=== PATIENT | female | born 1990 | race Caucasian/White ===

== ENCOUNTER → 2023-12-09 | Outpatient (CLI) | payer OTHER, SELFPAY ==
--- NOTE | 2023-12-09 12:00 | RAD_ITS ---
INDICATION: infertility EXAMINATION/TECHNIQUE: Routine hysterosalpingography was performed. Total Fluoroscopic Time: 18 seconds AND number of Fluoroscopic Images: 2 OR Radiation dosage index: 14.7 mGy COMPARISON: FINDINGS: The uterine cavity contour is unremarkable. There are no filling defects or abnormalities. Both fallopian tubes are patent with free peritoneal spillage bilaterally. RAD/Salpingogram IMPRESSION: Negative hysterosalpingogram. Electronically Signed: Francisco Javier Padron MD at 12:40 EDT ,
--- NOTE | 2023-12-09 12:50 | PCM.OPRPT ---
Problems Associated Problem List Diagnoses (1) PCOS (polycystic ovarian syndrome): Report of Operation Date of Procedure: 12/09/23 Pre-Operative Diagnosis: PCOS, abnormal bleeding, infertility Post-Operative Diagnosis: PCOS, abnormal bleeding, infertility Surgery/Procedure Performed:: hysterosalpingogram. Surgeon: Edel Bullock statistical methods teacher: None Type of Anesthesia: None Special Medications: none Specimen's removed: none Drains: none Estimated Blood Loss (mL): none Fluids Replaced: none Description of Procedure: Findings: Bilateral tubal patency and normal uterine cavity Operative details: Patient was taken to the x-ray room and was placed on the x-ray table and was in the dorsal lithotomy position. Speculum was placed in the vagina and the cervix prepped with Betadine and the HSG catheter was easily introduced into the uterus and speculum removed. Radiologist was brought in and while pushing radiopaque dye into the uterus via the HSG catheter the radiologist took multiple images and views and confirmed bilateral tubal patency seen. No gross uterine filling defects or abnormalities were seen. All instruments removed from the vagina and the uterus without complication. Patient tolerated the procedure well. Multi Select Codes Urinary/Genital Urinary/Genital CPT Codes: 75349 HSG/SIS
== END | disposition home or self-care (01) ==
LOC: RAD 11:52
PROVIDERS: Referring Provider Obstetrics & Gynecology; Visit Provider Obstetrics & Gynecology
DX: N97.0 Female infertility associated with anovulation (principal); E28.2 Polycystic ovarian syndrome
CPT/HCPCS: 58340; 74740; Q9967

== ENCOUNTER → 2024-05-27 | Outpatient (CLI) | payer OTHER, SELFPAY ==
[2024-05-27 10:34] LABS: Absolute Lymphocyte Count 2.52 X10^3/uL (0.83-4.51); Basophil# 0.07 X10^3/uL; Basophil% 0.7 % (0-1); Eosinophil# 0.21 X10^3/uL; Eosinophils% 2.2 % (0-5); Hematocrit 45.4 % (37-47); Hemoglobin 14.7 g/dL (12.0-15.0); Lymphocyte # 2.52 X10^3/ul (0.83-4.51); Lymphocyte % 26.9 % (19-41); Mean Corp Hgb Conc 32.4 g/dL (32-36); Mean Corpuscular Hgb 27.8 pg (27.0-32.0); Mean Corpuscular Volume 85.8 fL (81-99); Mean Platelet Vol. 8.7 fl (6.2-12.0); Monocyte# 0.51 X10^3/uL; Monocyte% 5.4 % (0-10); NRBC Flagged by Analyzer 0 % (0-5); Neutrophil # 5.98 X10^3/uL (2.7-7.7); Neutrophil % 63.9 % (47-70); Platelet Count 348 K/mm3 (150-450); RBC Distribution Width CV 12.6 % (11.6-14.6); RBC Distribution Width SD 39.6 fl (35.1-43.9); Red Blood Count 5.29 M/mm3 (4.2-5.4); White Blood Count 9.4 K/mm3 (4.4-11.0)
[2024-05-27 11:39] LABS: AST(SGOT) 40 U/L (15-37); Alanine Aminotransfer ALT/SGPT 59 U/L (13-56); Albumin, Serum 3.8 g/dL (3.2-5.0); Alkaline Phosphatase 86 U/L (45-117); Anion Gap 7 (5-15); BUN 8 mg/dL (7-18); BUN/Creat Ratio 11.7 RATIO (10-20); Calcium,Total 9.1 mg/dL (8.5-10.1); Chloride 107 mmol/L (98-107); Creatinine, Serum 0.68 mg/dL (0.55-1.02); EST Glomerular Filtration Rate 104 mL/min (>60); Est Glom Filt Rate - Afr Amer 126 mL/min (>60); Estradiol 133.9 pg/mL; Follicle Stimulating Hormone 5.8 mIU/mL; Glucose 98 mg/dL (74-106); Potassium 3.9 mmol/L (3.5-5.1); Protein, Total 7.8 g/dL (6.4-8.2); Sodium Level 138 mmol/L (136-145)
[2024-05-27 11:50] LABS: HIV - WCH Non-Reactive (Nonreactive); Hepatitis B Surface Antigen Non-Reactive (Nonreactive); Hepatitis C Antibody Non-Reactive (Nonreactive); Rubella IgG Reactive (Nonreactive); Syphilis Antibodies Non-reactive; Vitamin D,25 Hydroxy 29.8 ng/mL
[2024-05-27 14:23] LABS: Hemoglobin A1c 5.4 % (3.8-5.6)
[2024-05-28 10:08] LABS: HCG BETA-SUBUNIT QUANT. < 1 mIU/mL (.); PROGESTERONE 0.2 ng/mL (.)
[2024-06-02 12:07] LABS: Anti-Mullerian Hormone,Serum 3.66 ng/mL (.); PROLACTIN 7.8 ng/mL (4.8-33.4); V-Zoster IgG (Immunity) 1347 index (Immune >165)
== END | disposition home or self-care (01) ==
LOC: LAB 09:27
PROVIDERS: Referring Provider Obstetrics & Gynecology Reproductive Endocrinology; Visit Provider Obstetrics & Gynecology Reproductive Endocrinology
DX: Z31.41 Encounter for fertility testing (principal)
CPT/HCPCS: 36415; 80053; 82306; 82670; 83001; 83002; 83036; 83516; 84144; 84146; 84403; 84443; 84702; 85025; 86703; 86762; 86780; 86787; 86803; 86900; 86901; 87340

== ENCOUNTER → 2024-08-04 | Outpatient (CLI) | payer OTHER, SELFPAY | END | disposition home or self-care (01) | LOC: SL 10:19 | PROVIDERS: Referring Provider Internal Medicine; Visit Provider Internal Medicine | DX: R29.818 Other symptoms and signs involving the nervous system (principal); G47.33 Obstructive sleep apnea (adult) (pediatric) | CPT/HCPCS: 95806 ==

== ENCOUNTER → 2024-10-09 | Outpatient (CLI) | payer BC, SELFPAY ==
[2024-10-09 17:17] LABS: Absolute Lymphocyte Count 2.85 X10^3/uL (0.83-4.51); Absolute Neutrophil Count 10.8 X10^3/uL (2.0-7.7); Basophil# 0.07 X10^3/uL; Basophil% 0.5 % (0-1); Eosinophil# 0.21 X10^3/uL; Eosinophils% 1.4 % (0-5); Hematocrit 41.2 % (37-47); Hemoglobin 14.1 g/dL (12.0-15.0); Lymphocyte # 2.85 X10^3/ul (0.83-4.51); Lymphocyte % 19.2 % (19-41); Mean Corp Hgb Conc 34.2 g/dL (32-36); Mean Corpuscular Hgb 28.8 pg (27.0-32.0); Mean Corpuscular Volume 84.1 fL (81-99); Mean Platelet Vol. 9.1 fl (6.2-12.0); Monocyte# 0.77 X10^3/uL; Monocyte% 5.2 % (0-10); NRBC Flagged by Analyzer 0 % (0-5); Neutrophil # 10.84 X10^3/uL (2.7-7.7); Neutrophil % 73.2 % (47-70); Platelet Count 417 K/mm3 (150-450); RBC Distribution Width CV 12.8 % (11.6-14.6); RBC Distribution Width SD 39.1 fl (35.1-43.9); White Blood Count 14.8 K/mm3 (4.4-11.0)
[2024-10-09 17:21] LABS: Amphetamine Urine VISTA NEGATIVE (<1000 ng/mL); Barbiturate Urine VISTA NEGATIVE (< 200 ng/mL); Benzodiazepine Urine VISTA NEGATIVE (< 200 ng/mL); Cocaine Urine VISTA NEGATIVE (< 300 ng/mL); Ecstacy Urine VISTA NEGATIVE (< 500 ng/mL); Methadone Urine VISTA NEGATIVE (< 300 ng/mL); PCP Urine VISTA NEGATIVE (< 25 ng/mL); THC Urine VISTA NEGATIVE (< 50 ng/mL); Vista UDS pH Range 6
[2024-10-09 17:31] LABS: T4 Free Direct 1.29 ng/dL (0.76-1.46)
[2024-10-09 19:44] LABS: Hemoglobin A1c 5.2 % (3.8-5.6)
[2024-10-12 15:34] LABS: Hepatitis B Surface Antigen Non-Reactive (Nonreactive); Hepatitis C Antibody Non-Reactive (Nonreactive); Rubella IgG Reactive (Nonreactive); Syphilis Antibodies Non-reactive
[2024-10-12 20:07] LABS: Chlamydia By Nucleic Acid AMP Negative (Negative); Gonococcus By Nucleic Acid AMP Negative (Negative)
[2024-10-13 22:09] LABS: HIV - WCH Non-Reactive (Nonreactive)
== END | disposition home or self-care (01) ==
PROVIDERS: PCP Internal Medicine; Referring Provider Advanced Practice Midwife; Visit Provider Advanced Practice Midwife
DX: O99.320 Drug use complicating pregnancy, unspecified trimester (principal); F12.99 Cannabis use, unspecified with unspecified cannabis-induced disorder; Z78.9 Other specified health status; O99.210 Obesity complicating pregnancy, unspecified trimester; Z3A.00 Weeks of gestation of pregnancy not specified
CPT/HCPCS: 36415; 80307; 83036; 84439; 84443; 85025; 86703; 86762; 86780; 86803; 86850; 86900; 86901; 87086; 87088; 87340; 87491; 87591

== ENCOUNTER → 2024-10-15 | Outpatient (CLI) | payer BC, SELFPAY | END | disposition home or self-care (01) | LOC: SL 10:27 | PROVIDERS: PCP Internal Medicine; Referring Provider Internal Medicine; Visit Provider Internal Medicine | DX: Z00.00 Encounter for general adult medical examination without abnormal findings (principal) ==

== ENCOUNTER → 2024-10-23 | Outpatient (CLI) | payer BC, SELFPAY | END | disposition home or self-care (01) | LOC: SL 10:32 | PROVIDERS: PCP Internal Medicine; Visit Provider Internal Medicine | DX: Z46.89 Encounter for fitting and adjustment of other specified devices (principal) ==

== ENCOUNTER 2024-11-10 18:30 | Emergency (ER) | payer BC, SELFPAY ==
[2024-11-10] VITALS (8 sets, daily range): BP systolic 96–142; BP diastolic 62–102; PULSE 83–138; RESP 18–20; TEMP 36.3–36.8; O2SAT 94–100; BMI 47.4
--- NOTE | 2024-11-10 19:33 | EKG12_ITS ---
Test Reason : DYSRHYTHMIA Blood Pressure : */* mmHG Vent. Rate : 109 BPM Atrial Rate : 109 BPM P-R Int : 118 ms QRS Dur : 72 ms QT Int : 324 ms P-R-T Axes : 47 14 -7 degrees QTcB Int : 436 ms Sinus tachycardia Otherwise normal ECG Confirmed by Douglas Fung ([id number]), medical transcription editor DAYNE HOGAN ([id number]) on 11/11/2024 11:26:16 AM Referred By: Confirmed By: Dogulas Fung
[2024-11-10] MEDS: 0.9% Normal Saline (1000mL) 1,000 ML 1000 ML IV (19:44)
[2024-11-10 19:54] LABS: Absolute Lymphocyte Count 3.59 X10^3/uL (0.83-4.51); Absolute Neutrophil Count 9.3 X10^3/uL (2.0-7.7); Basophil# 0.07 X10^3/uL; Basophil% 0.5 % (0-1); Eosinophil# 0.17 X10^3/uL; Eosinophils% 1.2 % (0-5); Hematocrit 43.6 % (37-47); Hemoglobin 14.8 g/dL (12.0-15.0); Lymphocyte # 3.59 X10^3/ul (0.83-4.51); Lymphocyte % 25.8 % (19-41); Mean Corp Hgb Conc 33.9 g/dL (32-36); Mean Corpuscular Hgb 28.8 pg (27.0-32.0); Mean Corpuscular Volume 84.8 fL (81-99); Mean Platelet Vol. 9.3 fl (6.2-12.0); Monocyte# 0.71 X10^3/uL; Monocyte% 5.1 % (0-10); NRBC Flagged by Analyzer 0 % (0-5); Neutrophil # 9.29 X10^3/uL (2.7-7.7); Neutrophil % 66.8 % (47-70); Platelet Count 373 K/mm3 (150-450); RBC Distribution Width CV 12.8 % (11.6-14.6); RBC Distribution Width SD 39.5 fl (35.1-43.9); Red Blood Count 5.14 M/mm3 (4.2-5.4); White Blood Count 13.9 K/mm3 (4.4-11.0)
[2024-11-10 20:05] LABS: Anion Gap 8 (5-15); BUN 5 mg/dL (7-18); BUN/Creat Ratio 8.8 RATIO (10-20); Calcium,Total 9.9 mg/dL (8.5-10.1); Chloride 108 mmol/L (98-107); Creatinine, Serum 0.57 mg/dL (0.55-1.02); EST Glomerular Filtration Rate 129 mL/min (>60); Est Glom Filt Rate - Afr Amer 157 mL/min (>60); Estimated Creatinine Clearance 167.72 ml/min; Glucose 86 mg/dL (74-106); Potassium 3.4 mmol/L (3.5-5.1); Sodium Level 140 mmol/L (136-145)
--- NOTE | 2024-11-10 20:13 | EDS_ITS ---
HPI History of Present Illness Chief Complaint: Palpitations Detail of Chief Complaint: Patient presents with palpitations/fast heart rate and mild shortness of br Informant: patient Onset/Context/Timing Onset: Today and Hours Context: Sudden Onset Timing: Continuous Current Severity: Mild Maximum Severity: Moderate Worsened by: Nothing Relieved by: Nothing Associated Symptoms Associated Symptoms: Fast heart rate and shortness of breath Narrative Narrative: Patient is a 34-year-old female who is 13 weeks gestation. She presents because of rapid heartbeat and shortness of breath. She has no history of PE or DVT. She has no risk factors for VTE. There is no family history of VTE. She was ill with respiratory symptoms last week. She states her symptoms have resolved. She denies headache, visual, ocular auditory symptoms. She denies rhinorrhea, congestion or postnasal drainage. She denies sore throat. She denies chest discomfort of any type including pleuritic. She does report fast heart rate. She does endorse feeling lightheaded and slightly shortness of breath. She denies cough. She denies leg pain or swelling. She denies abdominal pain, nausea, vomiting or diarrhea. She denies dysuria, urgency or hematuria. She does endorse increased urination. She denies rash. She denies myalgias or arthralgias. Prior similar symptoms: No Recent Illness/Hospitalization: No PFSH PFS Medical History PCOS (polycystic ovarian syndrome) Infertility Depression with anxiety GERD (gastroesophageal reflux disease) Home Medications ?Medication ?Instructions ?Recorded ?Last Taken ?Type escitalopram oxalate 10 mg tablet 10 mg PO DAILY #30 t abs 07/20/24 Unknown Rx (Lexapro) famotidine 40 mg tablet (Pepcid) 40 mg PO DAILY #30 ta bs 07/20/24 Unknown Rx docosahexaenoic acid 200 mg 200 mg PO DAILY #90 caps 1 Unknown Rx capsule ( DHA) levothyroxine 25 mcg tablet 25 mcg PO QDAY #90 tabs Unknown Rx (Synthroid) Allergy/AdvReac Type Severity Reaction Status Date / Time No Known Allergies Allergy Verified 11/10/24 18:31 Family History Mother Hypertension Grandfather Heart disease Hypertension Diabetes Cancer Macular degeneration Grandmother Macular degeneration Surgical History H/O successful vaginal after , currently H/O section History of surgical procedure S/P cholecystectomy S/P S/P wisdom tooth extraction Social History adopted: No household members: spouse and children housing: house number of children: 1 current occupational status: unemployed current occupation: [employer] current occupational exposures/hazards: No 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) pets and animals: cat(s) history of recent travel: Yes ([place] for IVF) out of state: Yes sexually active: Yes Smoking Status: Former smoker quit date: 09/30/21 alcohol intake: current alcohol intake frequency: holidays/special occasions only details: Not while substance use type: former substance user Date of last use: May 2024 and marijuana diet: vegetarian well-balanced diet: about half the time caffeine: Yes Type: carbonated beverages Number of servings: 1 eating out: 4 or more times/week during the past year weight has: remained stable what type of physical activity do you participate in: none landon/orthodox: None seatbelt use: always do you feel safe at home: Yes additional social history: : [employer] Sumner (works from home) ROS ROS ED Constitutional Constitutional ED: Denies chills, fever(s), subjective, sweats or weight loss Eyes Eyes: Denies blurry vision, change in vision or diplopia ENT ENT ED: Denies ear pain, rhinorrhea or sore throat Cardiovascular Cardiovascular: Denies chest pain, orthopnea, palpitations, paroxysmal nocturnal dyspnea or racing heartbeat Respiratory/Chest Respiratory/Chest: Reports dyspnea; Denies cough, dyspnea on exertion, orthopnea or paroxysmal nocturnal dyspnea Gastrointestinal Gastrointestinal: Denies abdominal pain, constipation, diarrhea, melena, nausea or vomiting Genitourinary Genitourinary ED: Reports LMP (females 10-50) Details: Comment: (13 weeks gestation. Conceived by in vitro fertilization) and urinary frequency; Denies dysuria or hematuria Musculoskeletal Musculoskeletal: Denies arthralgias, back pain or myalgias Integumentary Denies abscess, Abrasions or rash Neurologic Neurologic: Denies headache(s), paresthesias or weakness Psychiatric Psychiatric: Reports anxiety Endocrine Endocrinology: Denies cold intolerance or heat intolerance Hematologic/Lymphatic Hematologic/Lymphatic: Reports systems reviewed and no addt'l complaints, except as documented EXAM Physical Exam Const Vital Signs: 11/10/24 18:31 11/10/24 19:21 11/10/24 19:30 Temperature 97.4 F L Temperature Source Temporal Pulse Rate 138 H 94 Pulse Rate [Lying] Pulse Rate [Sitting (for 1 minute prior to obtaining)] Pulse Rate [Standing (for 1 minute prior to obtaining)] Respiratory Rate 20 H 18 Respiratory Effort Normal Non-Labored Respiratory Pattern Normal Blood Pressure 122/98 H 117/81 H Blood Pressure [Lying] Blood Pressure [Sitting (for 1 minute prior to obtaining)] Blood Pressure [Standing (for 1 minute prior to obtaining)] Blood Pressure Mean 106 93 Blood Pressure Mean [Lying] Blood Pressure Mean [Sitting (for 1 minute prior to obtaining)] Blood Pressure Mean [Standing (for 1 minute prior to obtaining)] Pulse Ox 100 98 Oxygen Delivery Method Room Air Room Air 11/10/24 20:00 11/10/24 20:36 11/10/24 21:00 Temperature 98.2 F Temperature Source Pulse Rate 99 111 H 83 Pulse Rate [Lying] Pulse Rate [Sitting (for 1 minute prior to obtaining)] Pulse Rate [Standing (for 1 minute prior to obtaining)] Respiratory Rate 18 20 H 18 Respiratory Effort Respiratory Pattern Blood Pressure 120/72 96/62 126/83 H Blood Pressure [Lying] Blood Pressure [Sitting (for 1 minute prior to obtaining)] Blood Pressure [Standing (for 1 minute prior to obtaining)] Blood Pressure Mean 88 73 97 Blood Pressure Mean [Lying] Blood Pressure Mean [Sitting (for 1 minute prior to obtaining)] Blood Pressure Mean [Standing (for 1 minute prior to obtaining)] Pulse Ox 100 99 94 Oxygen Delivery Method Room Air Room Air 11/10/24 21:56 11/10/24 22:00 Temperature Temperature Source Pulse Rate 120 H Pulse Rate [Lying] 111 H Pulse Rate [Sitting (for 1 minute prior to obtaining)] 119 H Pulse Rate [Standing (for 1 minute prior to obtaining)] 126 H Respiratory Rate 18 Respiratory Effort Respiratory Pattern Blood Pressure 142/99 H Blood Pressure [Lying] 130/85 H Blood Pressure [Sitting (for 1 minute prior to obtaining)] 142/99 H Blood Pressure [Standing (for 1 minute prior to obtaining)] 136/102 H Blood Pressure Mean 113 Blood Pressure Mean [Lying] 100 Blood Pressure Mean [Sitting (for 1 minute prior to obtaining)] 113 Blood Pressure Mean [Standing (for 1 minute prior to obtaining)] 113 Pulse Ox 98 Oxygen Delivery Method Room Air Positive well nourished and well developed Constitutional Narrative: Vital signs noted. Patient is tachycardic. She is not hypoxic. BMI is 47.4. General Appearance ED: well developed; Negative for diaphoretic, NAD or pallor HEENT Reports dry mucous membranes HEENT Narrative: Head is atraumatic no cephalic. Ears normal. Nares patent. Posterior pharynx is normal. Mouth ED: Yes dry mucous membranes Mouth: dry mucous membranes Eyes EOMs intact bilaterally General Eye ED: Negative for pale conjunctiva or scleral icterus Neck no lymphadenopathy, supple and no JVD Chest Wall inspection of chest normal and palpation of chest normal Resp normal respiratory effort and clear to auscultation bilaterally Cardio regular rhythm, S1 normal heart sound, S2 normal heart sound and no murmurs Rate: tachycardic GI normal to inspection, nondistended, normoactive bowel sounds, non-tender and non-distended; Negative for hepatosplenomegaly Auscultation: normoactive bowel sounds Palpation: soft Extremity normal to inspection Extremity Narrative: There is no asymmetry, swelling, discoloration, leg vein distention, palpable cords or tenderness along the distribution of the deep venous system. Neuro oriented x3, CN's II-XII intact bilaterally and no sensory deficits noted Sensorium / Orientation: alert Motor Exam: strength 5/5 throughout Psych mental status grossly normal Skin no rashes or lesions noted, no wounds and skin turgor normal General Skin Exam: Negative for elasticity normal, jaundice or pallor MDM MDM MDM Narrative Medical decision making narrative: Clinically patient appears dehydrated. This may represent hypovolemia. If orthostatics are negative will obtain D-dimer. Will also obtain EKG to assess for right heart strain ischemia etc. 1 L of normal saline was ordered. Lab Data Attestation: I reviewed the patient's lab results. Lab results narrative: White count slightly elevated 13.9 with no normal differential. This could be due to . H&H is normal. Basic metabolic panel is normal. Labs: Laboratory Results - last 24 hr 11/10/24 18:54 WBC 13.9 H RBC 5.14 Hgb 14.8 Hct 43.6 MCV 84.8 MCH 28.8 MCHC 33.9 RDW Std Deviation 39.5 RDW Coeff of Tanner 12.8 Plt Count 373 MPV 9.3 Immature Gran % (Auto) 0.600 Neut % (Auto) 66.8 Lymph % (Auto) 25.8 Caroline % (Auto) 5.1 Eos % (Auto) 1.2 Baso % (Auto) 0.5 Absolute Neuts (auto) 9.3 H Absolute Lymphs (auto) 3.59 Nucleated RBC % 0 D-Dimer Quant (PE/DVT) < 0.27 L Sodium 140 Potassium 3.4 L Chloride 108 H Carbon Dioxide 24.0 Anion Gap 8 BUN 5 L Creatinine 0.57 Estim Creat Clear Calc 167.72 Est GFR (MDRD) Af Amer 157 Est GFR (MDRD) Non-Af 129 BUN/Creatinine Ratio 8.8 L Glucose 86 Calcium 9.9 Patient had a TSH and free T4 level done October 09 which were both normal. Management Discussion w/another healthcare provider: [employer] (Patient talked with Dr. Apple Lao. [facility] to call Dr. Edel Power tomorrow for follow-up appointment.) Discharge Plan Triage Chief Complaint: Palpitations ED Provider: Ld Fermin Dx/Rx/DC Orders Clinical Impression: Sinus tachycardia seen on clinical research monitor, Dehydration, mild, Sleep apnea, Rh negative status during , Conceived by in vitro fertilization, AMA (advanced maternal age) multigravida 35+, PCOS (polycystic ovarian syndrome), Adult BMI 45.0-49.9 kg/sq m Instructions: ED About Arrhythmias Prescriptions: No Action escitalopram oxalate [Lexapro] 10 mg tablet 10 mg PO DAILY Qty: 30 5RF famotidine [Pepcid] 40 mg tablet 40 mg PO DAILY Qty: 30 5RF DHA 200 mg capsule 200 mg PO DAILY Qty: 90 4RF levothyroxine [Synthroid] 25 mcg tablet 25 mcg PO QDAY Qty: 90 4RF Primary Care Provider: Lakesha Eisenberg Referrals: Lakesha Eisenberg MD [Primary Care Provider] - 1 Week Edel Bullock DO [Med Staff - Active Staff] - 1-2 Days if not improving Print Language: Kittitian Disposition Disposition: Home, Self Care
[2024-11-10 21:13] LABS: D-Dimer Quantitative (DVT/PE) < 0.27 FEU/ug/m (0.27-0.49)
== END 2024-11-10 22:36 | disposition home or self-care (01) ==
PROVIDERS: Emergency Provider Emergency Medicine; PCP Internal Medicine; Visit Provider Emergency Medicine
DX: O09.511 Supervision of elderly primigravida, first trimester (principal); R06.02 Shortness of breath; R00.0 Tachycardia, unspecified; E28.2 Polycystic ovarian syndrome; Z87.891 Personal history of nicotine dependence; Z3A.13 13 weeks gestation of pregnancy; O99.891 Other specified diseases and conditions complicating pregnancy; O99.341 Other mental disorders complicating pregnancy, first trimester; F41.8 Other specified anxiety disorders; O99.611 Diseases of the digestive system complicating pregnancy, first trimester; K21.9 Gastro-esophageal reflux disease without esophagitis; Z90.49 Acquired absence of other specified parts of digestive tract; O99.281 Endocrine, nutritional and metabolic diseases complicating pregnancy, first trimester; E86.0 Dehydration; O99.351 Diseases of the nervous system complicating pregnancy, first trimester; G47.30 Sleep apnea, unspecified; O26.891 Other specified pregnancy related conditions, first trimester; O09.521 Supervision of elderly multigravida, first trimester
CPT/HCPCS: 80048; 85025; 85379; 93005; 96360; 96361; 99285; A4216

== ENCOUNTER → 2025-02-26 | Outpatient (CLI) | payer BC, SELFPAY ==
[2025-02-26 09:50] LABS: Absolute Lymphocyte Count 2.26 X10^3/uL (0.83-4.51); Absolute Neutrophil Count 8.8 X10^3/uL (2.0-7.7); Basophil# 0.04 X10^3/uL; Basophil% 0.3 % (0-1); Eosinophil# 0.12 X10^3/uL; Hematocrit 37.5 % (37-47); Hemoglobin 12.7 g/dL (12.0-15.0); Lymphocyte # 2.26 X10^3/ul (0.83-4.51); Lymphocyte % 19.1 % (19-41); Mean Corp Hgb Conc 33.9 g/dL (32-36); Mean Corpuscular Hgb 29.7 pg (27.0-32.0); Mean Corpuscular Volume 87.6 fL (81-99); Mean Platelet Vol. 9.5 fl (6.2-12.0); Monocyte# 0.47 X10^3/uL; NRBC Flagged by Analyzer 0 % (0-5); Neutrophil # 8.83 X10^3/uL (2.7-7.7); Neutrophil % 74.8 % (47-70); Platelet Count 300 K/mm3 (150-450); RBC Distribution Width CV 13.5 % (11.6-14.6); RBC Distribution Width SD 42.8 fl (35.1-43.9); Red Blood Count 4.28 M/mm3 (4.2-5.4); White Blood Count 11.8 K/mm3 (4.4-11.0)
[2025-02-26 10:16] LABS: Glucose Challenge Gest 1H 50g 172 mg/dL (70-140); HIV Nonreactive (Nonreactive); Syphilis Antibodies Nonreactive (Nonreactive)
== END | disposition home or self-care (01) ==
PROVIDERS: Obstetrics & Gynecology; PCP Internal Medicine; Referring Provider Obstetrics & Gynecology; Visit Provider Obstetrics & Gynecology
DX: O26.899 Other specified pregnancy related conditions, unspecified trimester (principal); Z67.91 Unspecified blood type, Rh negative; O09.90 Supervision of high risk pregnancy, unspecified, unspecified trimester; Z3A.00 Weeks of gestation of pregnancy not specified; Z13.1 Encounter for screening for diabetes mellitus
CPT/HCPCS: 36415; 82950; 85025; 86703; 86780; 86850; 86900; 86901

== ENCOUNTER → 2025-03-05 | Outpatient (CLI) | payer BC, SELFPAY ==
--- OUTSIDE RECORDS SUMMARY | 2025-03-05 06:55 | XMS RPT_ITS | CCD ---
Author Organization [facility] Inform ion [facility] Care Team Providers Care Biomedical Engineer Name Role Phone Marta Del Valle Unavailable Marta Liu Primary Care Provider Marta Del Valle Primary Care Provider Marta Del Valle Primary Care Provider MARTA DEL VALLE Primary Care MARLI Alexis Attending Unavailable WILL PRABHAKAR Attending Unavailable MARTA DEL VALLE Primary Care REBECA Brady Primary Care Unavailable ANDREW BURCIAGA Admitting UnavailANDREW Cardoso Attending UnavailANDREW Cardoso Referring UnavailJulissa Petersen JJai Admitting Unavailable POMNADINESJulissa JJai Consulting Unavailable Julissa HERNANDEZ Attending Unavailable MARTA DEL VALLE [facility] Julissa Saleh Admitting Unavailable MARTA DEL VALLE Primary Care Marta iLu MD Primary Care Provider Marta Del Valle MD Primary Care Provider Faith Starkey MD Unavailable Marta Del Valle MD Primary Care Provider [phone] Lawrence Young MD Unavailable MARTA DEL VALLE Attending Unavailable DEL VALLE, MARTA E Primary Care Unavailable DEL VALLE, MARTA E Referring Unavailable DEL VALLE, MARTA E Attending Unavailable DEL VALLE, MARTA E Primary Care Unavailable DEL VALLE, MARTA E Referring Unavailable DEL VALLE, MARTA E Primary Care Unavailable KIKI, LAWRENCE A Referring Unavailable KIKI, LAWRENCE A Attending Unavailable DEL VALLE, MARTA E Primary Care Unavailable KIKI, LAWRENCE A Referring Unavailable KIKI, LAWRENCE A Attending Unavailable SELF, SELF Referring Unavailable DEL VALLE, MARTA E Primary Care Unavailable KIKI, LAWRENCE A Attending Unavailable DEL VALLE, MARTA E Attending Unavailable SELF, SELF Referring Unavailable DEL VALLE, MARTA E Primary Care Unavailable DEL VALLE, MARTA E Primary Care Unavailable ROSALEE CONTRERAS Attending Unavailable DEL VALLE, MARTA E Primary Care Unavailable DEL VALLE, MARTA E Primary Care Unavailable SELF, SELF Referring Unavailable FAITH STARKEY Attending Unavailab le DEL VALLE, MARTA E Primary Care Unavailable SELF, SELF Referring Unavailable DEL VALLE, MARTA E Primary Care Unavailable DEL VALLE, MARTA E Attending Unavailable Dr. Edel Bullock Attending Provider [phone] JOSH, MARTA Referring Provider Unavailable Dr. Edel Bullock Referring Provider [phone] Dr. Edel Bullock Other Provider Care Physician, No Primary Primary Care Provider Unavailable Unavailable Primary Care Provider UnavailFaith Ny MD Unavailable Marta Del Valle MD Primary Care Provider Lawrence Young MD Unavailable Steffen Eisenberg MD Primary Care Provider Generic Provider MD, No Assigned Pcp Primary Car e Provider Unavailable LEVON BRAXTON Referring Unavailab le GENERIC PROVIDER, NO ASSIGNED PCP Primary Care Unavailable LEVON BRAXTON Referring Unavailab le GENERIC PROVIDER, NO ASSIGNED PCP Primary Care Unavailable LEVON BRAXTON Referring Unavailab le GENERIC PROVIDER, NO ASSIGNED PCP Primary Care Unavailable LEVON BRAXTON Referring Unavailab le GENERIC PROVIDER, NO ASSIGNED PCP Primary Care Unavailable LEVON BRAXTON Referring Unavailab le FAINA, STEFFEN CEFERINO Primary Care Unavailable LEVON BRAXTON Referring Unavailab le FAINA, STEFFEN CEFERINO Primary Care Unavailable LACEYLEVON DE LA ROSA Referring Unavailab le FAINA, STEFFEN CEFERINO Primary Care Unavailable LACEYLEVON DE LA ROSA Referring Unavailab le FAINA, STEFFEN CEFERINO Primary Care Unavailable GENERIC PROVIDER, NO ASSIGNED PCP Primary Care Unavailable GENERIC PROVIDER, NO ASSIGNED PCP Primary Care Unavailable GENERIC PROVIDER, NO ASSIGNED PCP Primary Care Unavailable GENERIC PROVIDER, NO ASSIGNED PCP Primary Care Unavailable FAINA, STEFFEN CEFERINO Primary Care Unavailable FAINA, STEFFEN CEFERINO Primary Care Unavailable FAINA, STEFFEN CEFERINO Primary Care Unavailable FAINA, STEFFEN CEFERINO Primary Care Unavailable FAINA, STEFFEN CEFERINO Primary Care Unavailable FAINA, STEFFEN CEFERINO Primary Care Unavailable FAINA, STEFFEN CEFERINO Primary Care Unavailable FAINA, STEFFEN CEFERINO Primary Care Unavailable FAINA, STEFFEN CEFERINO Primary Care Unavailable Unavailable Primary Care Provider Unavailabl dimitri Eisenberg MD, Steffen Primary Care Provider Dr. Steffen Eisenberg MD Referring Provider Twan Diehl DO, Dr. Hollingsworth Attending Provider Zander WOLFE, Dr. Jaffe Attending Provider [phone] Ld Fermin MD Emergency Provider [phone] Tashia WOLFE, Dr. Chiu Attending Provider [phone] Dr. Apple Lao MD Referring Provider OSMANI LLANES Referring Unavailable OSMANI LLANES Attending Unavailable NO PRIMARY CARE, Primary Care Unavailable OSMANI LLANES Attending Unavailable NO PRIMARY CARE, Primary Care Unavailable EDEL ROCK Referring Unavailab OSMANI Francisco Attending Unavailable NO PRIMARY CARE, Primary Care Unavailable EDEL ROCK Referring Unavailab Apple Hutton Referring Unavailable Apple Lao Attending Unavailable Faina, Steffen Primary Care Unavailable Faina, Steffen Primary Care Unavailable Apple Lao Attending Unavailable Faina, Steffen Primary Care Unavailable [place], Steffen Referring Unavailable [place], Steffen Primary Care Unavailable [place], Steffen Referring Unavailable Kiley Jain Attending Unavailable Care Physician, No Primary Referring Unava ilable Care Physician, No Primary Primary Care Unava ilable Faina, Steffen Attending Unavailable [place], Steffen Primary Care Unavailable [place], Steffen Referring Unavailable VandEdel Logan Attending Unavailabl e [place], Steffen Primary Care Unavailable [place], Steffen Referring Unavailable VandEdel Logan Attending Unavailabl e Faina, Steffen Primary Care Unavailable [place], Steffen Referring Unavailable Apple Lao Attending Unavailable [place], Steffen Referring Unavailable Vande Edel Diehl Attending Unavailabl e [place], Steffen Primary Care Unavailable [place], Steffen Primary Care Unavailable VandEdel Logan Attending Unavailabl e [place], Steffen Referring Unavailable [place], Steffen Primary Care Unavailable Aida Shields Attending Unavailable [place], Steffen Primary Care Unavailable Kiley Jain Referring Unavailable Kiley Jain Attending Unavailable [place], Steffen Attending Unavailable [place], Steffen Primary Care Unavailable Faina, Steffen Referring Unavailable [place], Steffen Referring Unavailable Care Physician, No Primary Primary Care Unava ilable [place], Steffen Attending Unavailable Care Physician, No Primary Primary Care Unava ilable Levon Braxton Referring Unavailable Levon Braxton Attending Unavailable [place], Steffen Primary Care Unavailable Fermin, Ld Attending Unavailable Faina, Steffen Attending Unavailable Faina, Steffen Primary Care Unavailable Faina, Steffen Primary Care Unavailable Edel Bullock Attending Unavailabl e Allergies Allergy Classification Reported Allergen(s) Allergy Type Date of Onset Reaction(s) Facility (13 sources) Amoxicillin; Translations: [AMOXICILLIN] Drug Allergy 1 Diarrhea, GI Intolerance [facility] (2 sources) ALLERGIES NOT ON FILE; Translations: [ALLERGIES NOT ON FILE] Propensity to adverse reactions (disorder) [facility] 2 Repository Medications Current Medications Medication Drug Class(es) Dates Sig (Normalized) Sig (Original) [id number] 200 actuat albuterol 0.09 mg/actuat metered dose inhaler (2 sources) beta2-Adrenergic Agonist Start: 01-12-2024 take 2 puff(s) by inhalation every six hours as needed for wheezing albuterol HFA (PROVENTIL HFA, VENTOLIN HFA) 90 mcg/actuation inhaler Indications: Acute cough Inhale 2 Puffs as instructed every 6 hours as needed for wheezing/shortnes s of breath. 1 Each 01/12/2024 Active Comment on above: Inhale 2 Puffs as in structed every 6 hours as needed for wheezing/shortness of breath. amoxicillin 875 mg oral tablet (1 source) Penicillin-class Antibacterial Start: 01-12-2024 End: 01-19-2024 take 1 tablet by mouth twice daily amoxicillin (AMOXIL) 875 mg tablet Indications: Acute otitis media, right Take 1 tablet by mouth two times a day for 7 days. 14 tablet 0 01/12/2024 01/19/2024 Active Comment on above: Take 1 tablet by [facility] two times a day for 7 days. azelaic acid 0.15 mg/mg topical gel (1 source) Start: 08-23-2020 End: 09-22-2020 azelaic acid (Finacea) 15 % gel Apply 1 application topically 2 (two) times a day . 50 g 2 08/23/2020 09/22/2020 Active benzonatate 100 mg oral capsule (3 sources) Non-narcotic Antitussive Start: 01-12-2024 End: 01-19-2024 take 1 capsule by mouth every eight hours as needed for cough and cough benzonatate (TESSALON PERLES) 100 mg capsule Indications: Acute cough Take 1 capsule by mouth three times a day as needed for up to 7 days. 21 capsule 0 01/12/2024 01/19/2024 Active Start: 08-10-2022 End: 09-27-2022 take 1 capsule by mouth three times daily as needed benzonatate 200 MG capsule Indications: Post-viral cough syndrome Take 1 capsule by mouth 3 times daily as needed. 30 capsule 0 08/10/2022 09/27/2022 Discontinued (Therapy completed) Comment on above: Take [address] [facility] three times a day as needed for up to 7 days. Breast Pump device (1 source) Start: 01-29-2025 Breast Pump device Active 0 .ROUTE .MEDSUPPLY January 29, 2025 12:00am As directed Desogestrel / Ethinyl Estradiol (13 sources) Progestin, Estrogen Start: 05-09-2019 take 1 tablet by mouth once daily desogestrel-ethinyl estradiol (VELIVET) 0.1/0.125/0.15 -0.025 MG Tab Take 1 tablet by mouth daily. Due for yearly follow up in 07/2019. Must be seen to get additional refills. Thanks 3 Package 0 05/09/2019 Active Start: 07-31-2018 End: 05-09-2019 take 1 tablet by mouth once daily desogestrel-ethinyl estradiol (VELIVET) 0.1/0.125/0.15 -0.025 MG Tab Indications: Dysmenorrhea Take 1 tablet by mouth daily. 90 tablet 3 07/31/2018 05/09/2019 Discontinued (Reorder) Start: 07-31-2018 take 1 tablet by claude th once daily desogestrel-ethinyl estradiol (VELIVET) 0.1/0.125/0.15 -0.025 MG Tab Indications: Dysmenorrhea Take 1 tablet by mouth daily. 90 tablet 3 07/31/2018 Active Start: 02-26-2015 take 1 tablet by claude th once daily VELIVET TRIPHASIC REGIMEN, 28, 0.1/.125/.15-25 mg-mcg tablet Take 1 tablet by mouth daily . 0 02/26/2015 Active Start: 02-26-2015 VELIVET TRIPHA SIC REGIMEN, 28, 0.1/.125/.15-25 mg-mcg tablet Start: 04-23-2013 take 1 tablet by claude th once daily Desogestrel-Ethinyl Estradiol (VELIVET TRIPHASIC REGIMEN, 28,) 0.1/.125/.15-25 mg-mcg tablet Indications: General counseling for prescription of oral contraceptives Take 1 tablet by mouth once daily. 3 Package 4 04/23/2013 Active Comment on above: Take 1 tablet by claude th once daily. docosahexaenoic acid 200 mg oral capsule (3 sources) Start: 11-04-19 End: 07-28-20 24 take 1 capsule by mouth once daily Docosahexaenoic Acid ( Dha) 200 mg capsule Active 200 mg PO DAILY July 28, 2024 12:02pm escitalopram 10 mg oral tablet (20 sources) Serotonin Reuptake Inhibitor Start: 11-04-19 End: 07-20-20 take 1 tablet by mouth once daily Escitalopram Oxalate (Lexapro) 10 mg tablet Active 10 mg PO DAILY July 20, 2024 3:09pm Start: 01-06-2023 take 1 tablet by claude th once daily Escitalopram 10 MG tablet Indications: MELINA (generalized anxiety disorder) , Recurrent major depressive disorder, in full remission Take 1 tablet by mouth daily. 30 tablet 11 01/06/2023 Active Start: 07-12-2022 End: 09-27-2022 take 1 tablet by mouth once daily Escitalopram 10 MG tablet Indications: MELINA (generalized anxiety disorder) , Recurrent major depressive disorder, in full remission Take 1 tablet by mouth daily. Please keep August appt! 90 tablet 0 09/27/2022 Active Start: 09-08-2020 take 1 tablet by claude th once daily escitalopram 10 MG tablet Indications: MELINA (generalized anxiety disorder) Take 1 tablet by mouth daily. 90 tablet 3 09/08/2020 Active Start: 07-31-2018 take 1 tablet by claude th once daily escitalopram oxalate (LEXAPRO) 10 MG tablet Take 10 mg by mouth daily . 0 07/31/2018 Active Comment on above: Take 1 tablet by claude th every afternoon. famotidine 40 mg oral tablet (15 sources) Histamine-2 Receptor Antagonist Start: 10-07-2023 End: 01-11-2025 take 1 tablet by mouth once daily Famotidine (Pepcid) 40 mg tablet Active 40 mg PO DAILY January 11, 2025 8:44am Start: 09-27-2021 End: 09-27-2022 take 1 tablet by mouth once daily famotidine 40 MG tablet Indications: Gastroesophageal reflux disease without esophagitis Take 1 tablet by mouth daily. 90 tablet 3 09/27/2022 Active Start: 09-28-2020 take 1 tablet by claude th once daily famotidine 40 MG tablet Indications: Gastroesophageal reflux disease without esophagitis Take 1 tablet by mouth daily. 90 tablet 3 09/28/2020 Active Start: 07-23-2019 famotidine (PE PCID) 40 MG tablet Glucose (1 source) Start: 03-08-2021 take 50 g by mouth once for diabetes mellitus Glucose Liquid Indications: Screening for diabetes mellitus Take 50 g by mouth once for 1 dose. 50 g 0 03/08/2021 Active hydrOXYzine pamoate 25 mg oral capsule (8 sources) Antihistamine Start: 03-19-2019 take 1 capsule by mouth three times daily as needed hydrOXYzine (VISTARIL) 25 MG capsule Take 25 mg by mouth 3 (three) times a day as needed . 0 03/19/2019 Active Start: 07-30-2017 End: 03-18-2019 take 1 capsule by mouth four times daily as needed hydrOXYzine (VISTARIL) 25 MG capsule Take 25 mg by mouth 4 (four) times a day as needed . 0 07/30/2017 03/18/2019 Discontinued Start: 07-30-2017 hydrOXYzine (V ISTARIL) 25 MG capsule Take 25 mg by mouth. 07/30/2017 Active Inhalational Spacing Device (1 source) Start: 01-12-2024 End: 01-12-2024 Inhalational Spacing Device 1 Device one time only for 1 dose. 1 Each 0 01/12/2024 01/12/2024 Active Comment on above: 1 Device one time on ly for 1 dose. lansoprazole (2 sources) Proton Pump Inhibitor LANSOPRAZOLE ORAL Ta ke by mouth. Active LANSOPRAZOLE ORA L Take by mouth. 0 Active Comment on above: Take by mouth. levothyroxine sodium 0.025 mg oral tablet (2 sources) l-Thyroxine Start: 07-20-20 End: 10-14-19 take 1 tablet by mouth once daily Levothyroxine (Synthroid) 25 mcg tablet Active 25 ug PO daily October 15, 2024 12:24am ondansetron 4 mg disintegrating oral tablet (5 sources) Serotonin-3 Receptor Antagonist Start: 07-29-20 End: 08-05-20 take 1 tablet by mouth every six hours as needed ondansetron (Zofran ODT) 4 MG disintegrating tablet Dissolve 1 (one) tablet (4 mg total) on top of tongue every 6 (six) hours as needed for nausea . 12 tablet 0 07/29/2019 Active Start: 03-19-2019 End: 03-19-2019 ondansetron (ZOFRAN) injecti on 4 mg pantoprazole 40 mg delayed release oral tablet (10 sources) Proton Pump Inhibitor Start: 07-31-2018 take 1 tablet by mouth once daily pantoprazole (PROTONIX) 40 MG tablet Take 40 mg by mouth daily . 0 07/31/2018 Active MV-Min-Fe Fum-FA-DHA (+DHA) 28-0.975 & 200 MG Misc (1 source) Start: 09-28-2020 take 1 capsule by mouth once daily MV-Min-Fe Fum-FA-DHA (+DHA) 28-0.975 & 200 MG Misc Indications: Well adult exam Take 1 capsule by mouth daily. May substitute available generic PNV if cheaper. 90 Each 3 09/28/2020 Active PLUS DHA 27 mg iron-1 mg -312 mg-250 mg cmpk (2 sources) Start: 10-29-2023 take 1 tablet by mouth once daily PLUS DHA 27 mg iron-1 mg -312 mg-250 mg cmpk TAKE 1 TAB & 1 CAPSULE BY MOUTH EVERY DAY 10/29/2023 Active Start: 10-29-2023 take 1 tablet by claude th once daily PLUS DHA 27 mg iron-1 mg -312 mg-250 mg cmpk TAKE 1 TAB & 1 CAPSULE BY MOUTH EVERY DAY 0 10/29/2023 Active Comment on above: TAKE 1 TAB & 1 CAPSU LE BY MOUTH EVERY DAY vit 09-jhjw-xqdbm-dha ( + DHA) 28 mg iron- 975 mcg-200 mg Cmpk (2 sources) Start: 09-02-2019 take 1 capsule by mouth once daily vit 93-yjby-whbfm-dha ( + DHA) 28 mg iron- 975 mcg-200 mg Cmpk Take 1 capsule by mouth daily . 0 09/02/2019 Active Vit-Fe Axj-MU-Rvjko (PNV Plus Multivit+DHA) 27-1 & 312 MG Misc (4 sources) Start: 07-29-2024 Vit-Fe Uvo-NJ-Fddqo (PNV Plus Multivit+DHA) 27-1 & 312 MG Misc 1 tab + 1 cap daily. Due for yearly follow up - must be seen to get additional refills 180 Each 07/29/2024 Active Start: 10-29-2023 End: 07-29-2024 take 1 tablet by mouth once daily Vit-Fe Pls-BI-Ljjal (PNV Plus Multivit+DHA) 27-1 & 312 MG Misc TAKE 1 TAB & 1 CAPSULE BY MOUTH EVERY DAY 180 Each 1 10/29/2023 07/29/2024 Discontinued Start: 07-03-2022 End: 09-27-2022 take 1 tablet by mouth once daily Vit-Fe Fgk-VA-Zuokl (PNV Plus Multivit+DHA) 27-1 & 312 MG Misc TAKE 1 TAB & 1 CAPSULE BY MOUTH EVERY DAY 0 07/03/2022 09/27/2022 Discontinued (Reorder) Start: 07-03-2022 take 1 tablet by claude th once daily Vit-Fe Awn-JZ-Wlzpj (PNV Plus Multivit+DHA) 27-1 & 312 MG Misc TAKE 1 TAB & 1 CAPSULE BY MOUTH EVERY DAY 0 07/03/2022 Active Vit-Fe Fumarate-FA ( Plus) 27-1 MG tablet (2 sources) Start: 09-27-2022 take 1 tablet by mouth once daily Vit-Fe Fumarate-FA ( Plus) 27-1 MG tablet Indications: Well adult exam Take 1 tablet by mouth daily. Okay to give whatever is on formulary 90 tablet 3 09/27/2022 Active promethazine hydrochloride 25 mg oral tablet (1 source) Phenothiazine Start: 12-17-2024 take 1 tablet by mouth every six hours as needed for headache Promethazine 25 mg tablet Active 25 mg PO EVERY 6 HOURS as needed for headache December 17, 2024 12:00am Completed/Discontinued Medications Medication Drug Class(es) Dates Sig (Normalized) Sig (Original) aspirin 81 mg chewable tablet (2 sources) Platelet Aggregation Inhibitor, Nonsteroidal Anti-inflammatory Drug Start: 03-18-2019 End: 03-19-2019 aspirin chewable tablet 324 mg take 81 mg by mouth once daily A SPIRIN 81 PO Take 81 mg by mouth daily. 0 Active dextromethorphan hydrobromide 3 mg/ml / promethazine hydrochloride 1.25 mg/ml oral solution (2 sources) Phenothiazine, Uncompetitive Y-ilfmhh-W-aspartate Receptor Antagonist, Sigma-1 Agonist Start: 08-10-2022 End: 09-27-2022 promethazine-dextromethorpha n 6.25-15 MG/5ML Syrup Indications: Post-viral cough syndrome Take 5 mL by mouth at bedtime as needed for Cough. 60 mL 0 08/10/2022 09/27/2022 Discontinued (Therapy completed) diphenhydrAMINE hydrochloride 25 mg oral capsule (1 source) Histamine-1 Receptor Antagonist Start: 10-02-2024 End: 11-05-2024 take 1 capsul e by mouth at bedtim e as needed Diphenhydramine Hcl (Benadryl) 25 mg capsule Discontinued 25 mg PO AT BEDTIME as needed October 02, 2024 1:00am November 05, 2024 3:32pm estradiol 2 mg oral tablet (1 source) Estrogen Start: 10-02-2024 End: 11-05-2024 take 1 tablet by mouth once daily Estradiol 2 mg tablet Discontinued 2 mg PO daily October 02, 2024 1:00am November 05, 2024 3:32pm 1 ml ketorolac tromethamine 30 mg/ml injection (1 source) Nonsteroidal Anti-inflammatory Drug, Cyclooxygenase Inhibitor Start: 03-19-2019 End: 03-19-2019 ketorolac (TORADOL) injectio n 30 mg letrozole 2.5 mg oral tablet (4 sources) Aromatase Inhibitor Start: 01-22-2024 End: 07-20-2024 take 3 tablet s by mouth once daily Letrozole 2.5 mg tablet Discontinued 5 mg PO DAILY 07 04January 22, 2024 12:00am July 20, 2024 2:18pm start on day 3 of cycle Start: 11-04-2023 End: 07-20-2024 Letrozole (Femara) 2.5 mg ta blet Discontinued 2.5 mg PO DAILY November 04, 2023 1:00am July 20, 2024 2:18pm begin between days 2 and 5 of mentrual cycle Start: 05-15-2023 Letrozole 2.5 MG tablet Take 1 tablet by mouth daily for 5 days. Days 3-7 of cycles 5 tablet 1 05/15/2023 Active lidocaine viscous 2% 10 mL and maalox plus 30 mL (GI COCKTAIL) 40 mL solution (1 source) Start: 03-18-2019 End: 03-19-2019 lidocaine viscous 2% 10 mL and maalox plus 30 mL (GI COCKTAIL) 40 mL solution loratadine 10 mg oral tablet (1 source) Start: 10-02-2024 End: 11-05-2024 take 1 tablet by mouth once daily Loratadine (Claritin) 10 mg tablet Discontinued 10 mg PO daily October 02, 2024 1:00am November 05, 2024 3:32pm LORazepam 1 mg oral tablet (2 sources) Benzodiazepine Start: 12-02-2023 End: 07-20-2024 Lorazepam (Ativan) 1 mg tablet Discontinued 1 mg PO ONCE 1 December 02, 2023 1:00am July 20, 2024 2:19pm take 30 minutes prior to procedure medroxyPROGESTERone acetate 5 mg oral tablet (1 source) Progestin Start: 01-22-2024 End: 07-20-2024 take 1 tablet by mouth once daily Medroxyprogesterone 5 mg tablet Discontinued 5 mg PO DAILY January 22, 2024 12:00am July 20, 2024 2:19pm omeprazole 20 mg delayed release oral capsule (3 sources) Proton Pump Inhibitor End: 03-18-2019 take 1 capsule by mouth once daily omeprazole (PRILOSEC) 20 MG capsule Take 20 mg by mouth daily. 0 03/18/2019 Discontinued progesterone 100 mg vaginal insert (2 sources) Progesterone Start: 10-02-2024 End: 11-05-2024 inject 75 mg by intramuscular injection once daily Progesterone 50 mg/mL oil Discontinued 75 mg IM daily October 02, 2024 1:00am November 05, 2024 3:32pm Start: 10-02-2024 End: 11-05-2024 Progesterone Micronized (End ometrin) 100 mg insert Discontinued 1 NMA VAGINAL THREE TIMES A DAY October 02, 2024 1:00am November 05, 2024 3:32pm Problems Active Problems Problem Classification Problem Date Documented Date Episodic/Chronic Anxiety disorders (17 sources) Generalized anxiety disorder; Translations: [Generalized anxiety disorder] Onset: 08-23-2014 07-31-2018 Chronic Cardiac dysrhythmias (9 sources) Palpitations; Translations: [Palpitations] Onset: 12-01-2015 01-30-2016 Episodic Esophageal disorders (17 sources) Gastroesophageal reflux disease; Translations: [Gastro-esophageal reflux disease without esophagitis] Onset: 12-09-2013 07-31-2018 Chronic Female infertility (9 sources) Female infertility associated with anovulation; Translations: [Female infertility associated with anovulation] Onset: 02-26-2025 11-04-2023 Chronic Fluid and electrolyte disorders (1 source) Mild dehydration; Translations: [Dehydration] 11-18-2024 Episodic Immunizations and screening for infectious disease (2 sources) Contact with and (suspected) exposure to other viral communicable diseases; Translations: [Needs influenza immunization] Episodic Menstrual disorders (10 sources) Dysmenorrhea; Translations: [Dysmenorrhea, unspecified] Onset: 12-09-2013 07-31-2018 Chronic Miscellaneous mental health disorders (8 sources) Eating disorder; Translations: [Eating disorder, unspecified] Onset: 08-01-2017 08-28-2017 Chronic Mood disorders (4 sources) Recurrent major depression in full remission; Translations: [Major depressive disorder, recurrent, in full remission] Onset: 09-27-2022 Chronic Other and unspecified benign neoplasm (1 source) Benign neoplasm of skin of abdomen; Translations: [Dermal nevus of abdominal wall] Episodic Other complications of ; puerperium affecting management of mother (1 source) Disorder of ; Translations: [Other disorders of ] Episodic Other complications of (6 sources) Maternal obesity complicating , childbirth and the puerperium, antepartum; Translations: [Obesity complicating , unspecified trimester] 10-09-2024 Chronic Comment on above: BMI 47.5; BPPs at 34 weeks-HgBA1C ordered Other complications of (1 source) Obesity complicating , unspecified trimester; Translations: [Obesity complicating , unspecified trimester] Onset: 02-26-2025 Chronic Other complications of (11 sources) RhD negative; Translations: [Other specified related conditions, unspecified trimester] Onset: 12-08-2020 Resolved: 09-27-2022 12-08-2020 Episodic Comment on above: B-, Needs Rhogam @ 2 8 weeks Other complications of (2 sources) Supervision of with history of infertility, unspecified trimester; Translations: [Supervision of with history of infertility, unspecified trimester] Onset: 10-02-2024 Episodic Other complications of (6 sources) Multigravida of advanced maternal age; Translations: [Supervision of elderly multigravida, unspecified trimester] 10-02-2024 Episodic Other complications of (6 sources) High risk ; Translations: [Supervision of high risk , unspecified, unspecified trimester] 01-01-2025 Episodic Comment on above: PRR, , ANTONIO 05/19,boy PC: Larry, : [place] Other complications of (1 source) Other specified related conditions, unspecified trimester; Translations: [Other specified related conditions, unspecified trimester] Onset: 03-04-2025 Episodic Other complications of (1 source) Supervision of elderly multigravida, unspecified trimester; Translations: [Supervision of elderly multigravida, unspecified trimester] Onset: 02-26-2025 Episodic Other complications of (1 source) Supervision of high risk , unspecified, unspecified trimester; Translations: [Supervision of high risk , unspecified, unspecified trimester] Onset: 02-26-2025 Episodic Other endocrine disorders (7 sources) Polycystic ovary syndrome; Translations: [Polycystic ovarian syndrome] 11-04-2023 Chronic Other endocrine disorders (3 sources) Polycystic ovarian syndrome; Translations: [Polycystic ovaries] Onset: 02-26-2025 11-04-2023 Chronic Other lower respiratory disease (3 sources) Cough; Translations: [Acute cough] Onset: 08-10-2022 Episodic Other nutritional; endocrine; and metabolic disorders (5 sources) Morbid obesity; Translations: [Morbid (severe) obesity due to excess calories] Onset: 07-31-2018 Resolved: 09-28-2020 07-31-2018 Chronic Other nutritional; endocrine; and metabolic disorders (9 sources) Body mass index 40+ - severely obese; Translations: [Morbid (severe) obesity due to excess calories] Onset: 07-31-2018 Resolved: 09-27-2021 09-28-2020 Chronic Other nutritional; endocrine; and metabolic disorders (2 sources) Abnormal weight gain; Translations: [Abnormal weight gain] Onset: 05-01-2023 Episodic Other and delivery including normal (20 sources) Normal ; Translations: [Encounter for supervision of normal first , unspecified trimester] Onset: 11-22-2020 Resolved: 09-27-2022 Episodic Comment on above: Discussed genetic/ca rrier testing - declines d/t embryo tested prior to transfer, nl anatomy. echo normal. Other screening for suspected conditions (not mental disorders or infectious disease) (7 sources) Elevated C-reactive protein; Translations: [Elevated C-reactive protein (CRP)] Onset: 08-28-2017 07-24-2019 Episodic Other screening for suspected conditions (not mental disorders or infectious disease) (3 sources) Elevated C-reactive protein; Translations: [Elevated C-reactive protein (CRP)] Onset: 08-28-2017 08-01-2018 Other skin disorders (1 source) Acne; Translations: [Acne vulgaris] Episodic Other upper respiratory infections (2 sources) Acute upper respiratory infection; Translations: [Acute upper respiratory infection, unspecified] 01-12-2024 Episodic Otitis media and related conditions (1 source) Acute right otitis media; Translations: [Otitis media, unspecified, right ear] 01-12-2024 Episodic Rehabilitation care; fitting of prostheses; and adjustment of devices (1 source) Encounter for fitting and adjustment of other specified devices; Translations: [Encounter for fitting and adjustment of other specified devices] Onset: 11-13-2024 Chronic Residual codes; unclassified (6 sources) Sleep apnea; Translations: [Sleep apnea, unspecified] 10-02-2024 Chronic Residual codes; unclassified (1 source) Sleep apnea, unspecified; Translations: [Sleep apnea, unspecified] Onset: 02-26-2025 Chronic Residual codes; unclassified (1 source) Hypersomnia, unspecified; Translations: [Hypersomnia, unspecified] Onset: 07-20-2024 Chronic Residual codes; unclassified (1 source) Infertile 10-02-2024 Episodic Comment on above: HSG Residual codes; unclassified (6 sources) Conceived by in vitro fertilization; Translations: [Other specified health status] 10-09-2024 Episodic Comment on above: growth and NSTs at 3 6 weeks. deliver by 39. Transferred male embryo - embryo tested Residual codes; unclassified (6 sources) Family history of hereditary disease; Translations: [Family history of other specified conditions] 10-02-2024 Episodic Comment on above: FOB w/ Shaw Muscul ar Dystrophy (X Chromosome linked)FOB adopted with limited medical history Residual codes; unclassified (1 source) Unspecified blood type, Rh negative; Translations: [Unspecified blood type, Rh negative] Onset: 02-26-2025 Episodic Residual codes; unclassified (1 source) History of uterine scar from previous surgery; Translations: [History of uterine scar from previous surgery] Onset: 02-26-2025 Episodic Residual codes; unclassified (1 source) Other specified health status; Translations: [Other specified health status] Onset: 02-26-2025 Episodic Residual codes; unclassified (1 source) Family history of other specified conditions; Translations: [Family history of other specified conditions] Onset: 02-26-2025 Episodic Residual codes; unclassified (1 source) 28 weeks gestation of ; Translations: [28 weeks gestation of ] Onset: 02-26-2025 Episodic Substance-related disorders (8 sources) Marijuana user; Translations: [Cannabis use, unspecified, uncomplicated] Onset: 11-05-2024 10-02-2024 Episodic Comment on above: Last use: May 2024; Pt informed of random tox screens Syncope (1 source) Vasovagal syncope; Translations: [Syncope and collapse] 11-18-2024 Episodic Unclassified (5 sources) Patient encounter status; Translations: [Well adult exam] Onset: 12-09-2013 07-31-2018 Unclassified (1 source) Onset: 05-17-2021 05-17-2021 Unclassified (1 source) Infertile; Translations: [Infertility] 12-02-2023 Past or Other Problems Problem Classification Problem Date Documented Da te Episodic/Chronic Abdominal pain (18 sources) Upper abdominal pain; Translations: [Generalized abdominal pain] Onset: 08-01-2017 Resolved: 09-28-2020 07-31-2018 Episodic Biliary tract disease (12 sources) Polyp of gallbladder; Translations: [Cholesterolosis of gallbladder] Onset: 09-27-2017 Resolved: 09-27-2022 07-31-2018 Episodic Contraceptive and procreative management (20 sources) Oral contraception; Translations: [Encounter for surveillance of contraceptive pills] Onset: 06-27-2018 Resolved: 09-28-2020 06-27-2018 Episodic Diseases of white blood cells (12 sources) Leukocytosis; Translations: [Elevated white blood cell count, unspecified] Onset: 08-28-2017 Resolved: 09-28-2020 08-01-2018 Chronic Gastrointestinal hemorrhage (8 sources) Rectal hemorrhage; Translations: [Hemorrhage of anus and rectum] Onset: 10-06-2014 Resolved: 07-31-2018 07-31-2018 Episodic Headache; including migraine (8 sources) Headache; Translations: [Headache] Onset: 08-23-2014 Resolved: 07-31-2018 07-31-2018 Episodic Hemorrhoids (8 sources) Hemorrhoids; Translations: [Unspecified hemorrhoids] Onset: 08-23-2014 04-08-2015 Episodic Mood disorders (4 sources) Mood disorders Onset: 09-27-2021 Resolved: 05-01-2023 09-27-2021 Neoplasms of unspecified nature or uncertain behavior (1 source) Thrombocytosis; Translations: [Essential (hemorrhagic) thrombocythemia] Onset: 07-31-2018 Resolved: 09-28-2020 09-28-2020 Chronic Neoplasms of unspecified nature or uncertain behavior (7 sources) Thrombocytosis; Translations: [Thrombocytosis] Onset: 07-31-2018 Resolved: 09-28-2020 08-01-2018 Episodic Nonmalignant breast conditions (8 sources) Mastodynia of right breast; Translations: [Mastodynia] Onset: 07-23-2019 Resolved: 09-28-2020 09-28-2020 Episodic Nonspecific chest pain (1 source) Chest pain; Translations: [Chest pain, unspecified type] Episodic Other aftercare (5 sources) Patient encounter status; Translations: [Encounter for therapeutic drug level monitoring] Onset: 07-24-2019 Resolved: 12-27-2020 12-27-2020 Episodic Other circulatory disease (8 sources) Elevated blood pressure; Translations: [Elevated blood-pressure reading, without diagnosis of hypertension] Onset: 07-31-2018 Resolved: 09-28-2020 07-31-2018 Episodic Other complications of ; puerperium affecting management of mother (3 sources) Disorder of breast associated with childbirth; Translations: [Other disorders of breast associated with and the puerperium] Onset: 08-03-2021 Resolved: 09-27-2022 08-03-2021 Episodic Other complications of ; puerperium affecting management of mother (1 source) Sore nipple; Translations: [Other disorders of breast associated with and the puerperium] Onset: 08-03-2021 Resolved: 09-27-2022 09-27-2022 Episodic Other complications of (4 sources) Group B Streptococcus carrier; Translations: [Streptococcus B carrier state complicating ] Onset: 06-23-2021 Resolved: 09-27-2021 09-27-2021 Episodic Other complications of (1 source) Supervision of elderly primigravida, first trimester; Translations: [Supervision of elderly primigravida, first trimester] Onset: 11-25-2024 Episodic Other connective tissue disease (1 source) Other symptoms and signs involving the nervous system; Translations: [Other symptoms and signs involving the nervous system] Onset: 08-26-2024 Episodic Other gastrointestinal disorders (1 source) Diarrhea; Translations: [Diarrhea, unspecified type] Episodic Other injuries and conditions due to external causes (8 sources) Injury of knee; Translations: [Sprain of other specified parts of unspecified knee, initial encounter] Onset: 04-08-2015 Resolved: 07-31-2018 07-31-2018 Episodic Other non-traumatic joint disorders (8 sources) Joint pain; Translations: [Pain in unspecified joint] Onset: 11-21-2017 Resolved: 07-31-2018 07-31-2018 Episodic Previous (1 source) Maternal care for unspecified type scar from previous delivery; Translations: [Maternal care for unspecified type scar from previous delivery] Onset: 10-09-2024 Episodic Residual codes; unclassified (1 source) Generalized aches and pains; Translations: [Generalized body aches] Episodic Residual codes; unclassified (1 source) 8 weeks gestation of ; Translations: [8 weeks gestation of ] Onset: 10-09-2024 Episodic Results Test Name Value Interpretation Reference Range Facility CBC W/Diff, Automatedon 05-3 Absolute Lymph 2.26 X10 3/uL Normal 0.83-4.51 [facility] Comment on above: Performed By: #### B TS, L3890.6100, L501.9520, L3890.6005, L3890.6300, L506.0400, L509.4005, L509.8000, L3410.9999, L501.9985, L100.0100 #### [facility] [address] [place], [address] Absolute Neut 8.8 X10 3/uL High 2.0-7.7 [facility] Comment on above: Performed By: #### B TS, L3890.6100, L501.9520, L3890.6005, L3890.6300, L506.0400, L509.4005, L509.8000, L3410.9999, L501.9985, L100.0100 #### [facility] [address] [place], [place], [id number] (876) Basophils/100 WBC (Bld) 0.3 % Normal 0-1 [facility] Comment on above: Performed By: #### B TS, L3890.6100, L501.9520, L3890.6005, L3890.6300, L506.0400, L509.4005, L509.8000, L3410.9999, L501.9985, L100.0100 #### [facility] [address] [place], [place], [phone] (543) Eosinophils/100 WBC (Bld) 1.0 % Normal 0-5 [facility] Comment on above: Performed By: #### B TS, L3890.6100, L501.9520, L3890.6005, L3890.6300, L506.0400, L509.4005, L509.8000, L3410.9999, L501.9985, L100.0100 #### [facility] [address] [place], [place], [phone] ([phone]) Erythrocyte distribution width (RBC) [Ratio] 13.5 % Normal 11.6-14.6 [facility] Comment on above: Performed By: #### B TS, L3890.6100, L501.9520, L3890.6005, L3890.6300, L506.0400, L509.4005, L509.8000, L3410.9999, L501.9985, L100.0100 #### [facility] [address] [place], [place], [phone] (891) Hematocrit (Bld) [Volume fraction] 37.5 % Normal 37-47 [facility] Comment on above: Performed By: #### B TS, L3890.6100, L501.9520, L3890.6005, L3890.6300, L506.0400, L509.4005, L509.8000, L3410.9999, L501.9985, L100.0100 #### [facility] [address] [place], [place], [id number] (589) Hemoglobin (Bld) [Mass/Vol] 12.7 g/dL Normal 12.0-15.0 [facility] Comment on above: Performed By: #### B TS, L3890.6100, L501.9520, L3890.6005, L3890.6300, L506.0400, L509.4005, L509.8000, L3410.9999, L501.9985, L100.0100 #### [facility] [address] [place], [address] IG% 0.800 Normal 0.0-0.9 [facility] Comment on above: Result Comment: IG% - Immature Granulocytes (promyelocytes, myelocytes and metamyelocytes) > 1% indicates that a LEFT SHIFT is Present. Performed By: #### B TS, L3890.6100, L501.9520, L3890.6005, L3890.6300, L506.0400, L509.4005, L509.8000, L3410.9999, L501.9985, L100.0100 #### [facility] [address] [place], [address] Lymphocytes/100 WBC (Bld) 19.1 % Normal 19-41 [facility] Comment on above: Performed By: #### B TS, L3890.6100, L501.9520, L3890.6005, L3890.6300, L506.0400, L509.4005, L509.8000, L3410.9999, L501.9985, L100.0100 #### [facility] [address] [place], [address] MCH (RBC) [Entitic mass] 29.7 pg Normal 27.0-32.0 [facility] Comment on above: Performed By: #### B TS, L3890.6100, L501.9520, L3890.6005, L3890.6300, L506.0400, L509.4005, L509.8000, L3410.9999, L501.9985, L100.0100 #### [facility] [address] [place], [address] MCHC (RBC) [Mass/Vol] 33.9 g/dL Normal 32-36 [facility] Comment on above: Performed By: #### B TS, L3890.6100, L501.9520, L3890.6005, L3890.6300, L506.0400, L509.4005, L509.8000, L3410.9999, L501.9985, L100.0100 #### [facility] [address] [place], [address] MCV (RBC) [Entitic vol] 87.6 fL Normal 81-99 [facility] Comment on above: Performed By: #### B TS, L3890.6100, L501.9520, L3890.6005, L3890.6300, L506.0400, L509.4005, L509.8000, L3410.9999, L501.9985, L100.0100 #### [facility] [address] [place], [address] Monocytes/100 WBC (Bld) 4.0 % Normal 0-10 [facility] Comment on above: Performed By: #### B TS, L3890.6100, L501.9520, L3890.6005, L3890.6300, L506.0400, L509.4005, L509.8000, L3410.9999, L501.9985, L100.0100 #### [facility] [address] [place], [address] Neutrophils/100 WBC (Bld) 74.8 % High 47-70 [facility] Comment on above: Performed By: #### B TS, L3890.6100, L501.9520, L3890.6005, L3890.6300, L506.0400, L509.4005, L509.8000, L3410.9999, L501.9985, L100.0100 #### [facility] [address] [place], [address] ( Nucleated RBC (Bld) [#/Vol] 0 10*3/uL Normal 0-5 [facility] Comment on above: Performed By: #### B TS, L3890.6100, L501.9520, L3890.6005, L3890.6300, L506.0400, L509.4005, L509.8000, L3410.9999, L501.9985, L100.0100 #### [facility] [address] [place], [address] Platelet mean volume (Bld) [Entitic vol] 9.5 fL Normal 6.2-12.0 [facility] Comment on above: Performed By: #### B TS, L3890.6100, L501.9520, L3890.6005, L3890.6300, L506.0400, L509.4005, L509.8000, L3410.9999, L501.9985, L100.0100 #### [facility] [address] [place], [address] Platelets (Bld) [#/Vol] 300 10*3/uL Normal 150-450 [facility] Comment on above: Performed By: #### B TS, L3890.6100, L501.9520, L3890.6005, L3890.6300, L506.0400, L509.4005, L509.8000, L3410.9999, L501.9985, L100.0100 #### [facility] [address] [place], [address] RBC (Bld) [#/Vol] 4.28 10*6/uL Normal 4.2-5.4 [facility] Comment on above: Performed By: #### B TS, L3890.6100, L501.9520, L3890.6005, L3890.6300, L506.0400, L509.4005, L509.8000, L3410.9999, L501.9985, L100.0100 #### [facility] [address] [place], [address] (117) RDW SD 42.8 fl Normal 35.1-43.9 [facility] Comment on above: Performed By: #### B TS, L3890.6100, L501.9520, L3890.6005, L3890.6300, L506.0400, L509.4005, L509.8000, L3410.9999, L501.9985, L100.0100 #### [facility] [address] [place], [address] WBC (Bld) [#/Vol] 11.8 10*3/uL High 4.4-11.0 [facility] Comment on above: Performed By: #### B TS, L3890.6100, L501.9520, L3890.6005, L3890.6300, L506.0400, L509.4005, L509.8000, L3410.9999, L501.9985, L100.0100 #### [facility] [address] [place], [place], [id number] Glucose Challenge Gest 1H 50 trini 05- GLU GEST 50g 1H 172 mg/dL High 70-140 [facility] Comment on above: Performed By: #### B TS, L3890.6100, L501.9520, L3890.6005, L3890.6300, L506.0400, L509.4005, L509.8000, L3410.9999, L501.9985, L100.0100 #### [facility] [address] [place], [place], [address] HIVon 02-26-2025 HIV Non-Reactive Normal Nonreactive [facility] Comment on above: Result Comment: Non- Reactive Reactive Repeatedly reactive samples must be confirmed according to CDC recommended confirmatory algorithms. The subresults for either HIVAG or AHIV can be used as an aid in the selection of the confirmation algorithm for reactive samples. Send out specimens with Reactive results to [facility] for confirmation. Order the HIV antibody detection and differentiation: [id number] Performed By: #### B TS, L3890.6100, L501.9520, L3890.6005, L3890.6300, L506.0400, L509.4005, L509.8000, L3410.9999, L501.9985, L100.0100 #### [facility] [address] [place], [place], [id number] Senior Lead Java Developer Office Visit Reporton 02-26-2025 Senior Lead Java Developer Office Visit Report [facility] [address], [address] [place] [address] OFFICE VISIT Date of Service: 02/26/25 MR#: [id number] Acct: [id number] Name: BARBY CABALLERO Rep #: [id number] : 1990 Provider: Dr. Apple martínez MD Age/Sex: 34/F Location: [facility] [place] Status: Signed Intake Vital Signs 10/09/24 14:36 01/01/25 10:10 01/29/25 10:30 02/26/25 08:45 Height 5 ft 2 in 5 ft 2 in 5 ft 2 in 5 ft 2 in Weight: 262 lb 2 oz 261 lb 4 oz 264 lb 2 oz BMI 47.9 47.7 48.3 BP 125/82 H 114/81 H 102/66 Intake Visit Reasons: 28 WK OB/GLUCOSE *DOC ONLY* Leasing Property Manager Required: No Is patient in pain?: No Allergies No Known Allergies Allergy (Verified 02/26/25 08:50) Medications ???Medication ???Instructions ???Recorded ???Confirmed ???Type escitalopram oxalate 10 mg tablet 10 mg PO DAILY #30 tabs 07/20/24 02/26/25 Rx (Lexapro) docosahexaenoic acid 200 mg 200 mg PO DAILY #90 caps 07/28/24 02/26/25 Rx capsule ( DHA) levothyroxine 25 mcg tablet 25 mcg PO QDAY #90 tabs 10/14/24 0 02/26/25 Rx (Synthroid) promethazine 25 mg tablet 25 mg PO Q6H PRN headache #30 tabs 12/17/24 02/26/25 Rx famotidine 40 mg tablet (Pepcid) 40 mg PO DAILY #30 tabs 01/11/25 0 02/26/25 Rx breast pump #1 ea 01/29/25 02/26/25 Rx Last Menstrual Period: 08/12/24 Zika: Zika virus screening: Negative : No PFSH PFSH Medical History PCOS (polycystic ovarian syndrome) Infertility Depression with anxiety GERD (gastroesophageal reflux disease) Surgical History H/O successful vaginal after , currently H/O section History of surgical procedure S/P cholecystectomy S/P S/P wisdom tooth extraction Family History Mother Hypertension Grandfather Heart disease Hypertension Diabetes Cancer Macular degeneration Grandmother Macular degeneration Social History adopted: No household members: spouse and children housing: house number of children: 1 current occupational status: unemployed current occupation: [employer] current occupational exposures/hazards: No 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) pets and animals: cat(s) history of recent travel: Yes ([place] for IVF) out of state: Yes sexually active: Yes Smoking Status: Former smoker quit date: 09/30/21 alcohol intake: current alcohol intake frequency: holidays/special occasions only details: Not while substance use type: former substance user Date of last use: May 2024 and marijuana diet: vegetarian well-balanced diet: about half the time caffeine: Yes Type: carbonated beverages Number of servings: 1 eating out: 4 or more times/week during the past year weight has: remained stable what type of physical activity do you participate in: none landon/anabaptist: None seatbelt use: always do you feel safe at home: Yes additional social history: : [employer] (works from home) History 2 Elective abortions Hx Para 1 Spontaneous abortions Hx # Term Pregnancies 1 Ectopic pregnancies Hx # Pregnancies Multiple births # of living children 1 Past Pregnancies Del. Date Name GA/Weeks Outcome Route Bth Weight Gen Labor Lgth Anesthesia Del Locatn Provider FOB 07/18/21 Larry 40 live - full term 7lbs 7oz Male gene ral [facility] Delivery Date: 07/18/21 Last Updated by: Aida Shields RN Induce d/t failure to progress naturally .. Slow progression of labor w/ decels .. Failed vacuum delivery into emergency csec HPI 28 WK OB/GLUCOSE *DOC ONLY* Details: BARBY CABALLERO is a 34 year old who presents for routine OB visit. OB Visit ANTONIO Calculator Estimated Delivery Date Method Current WG Current Estimate 05/19/25 Conception 28w 2d Expected Delivery Route/Plan repeat c/s Specific Issue/Plans Covid status: [] Flu vaccine: [] Tdap vaccine: [] Rhogam: [] LARC form signed: [] Problem list reviewed and updated with the most current plan of care details and appropriate orders placed. Relevant counseling for the gestational age provided. Continue routine care and follow up unless otherwise noted in visit notes/problem list details Initial Weight: 264 lb Date -???-???-???-???-??? -???-???-???-???-??? -???-???- EGA Weight BP Urine Prot -???-???-???-???-??? -???-???-???-???-??? -???-???- Glucose FHR FuHt Pres Dilation -???-???-???-???-??? -???-???-???-???-??? -???-???- Effaced St Visit Note 10/09/24 -???-???-???- (more content not included)... Normal [facility] Syphilis Antibodieson 2024 Syphilis Abs Non-Reactive Normal Nonreactive [facility] Comment on above: Performed By: #### B TS, L3890.6100, L501.9520, L3890.6005, L3890.6300, L506.0400, L509.4005, L509.8000, L3410.9999, L501.9985, L100.0100 #### [facility] [address] [place], [place], [address] Type AND Screenon 02-26-2025 ABO and Rh group Nom (Bld) Blood group B Rh(D) negative Normal [facility] Comment on above: Order Comment: PN Performed By: #### B TS, L3890.6100, L501.9520, L3890.6005, L3890.6300, L506.0400, L509.4005, L509.8000, L3410.9999, L501.9985, L100.0100 #### [facility] [address] [place], [place], [address] Progress Noteon 02-23-2025 Credit Card Analyst Authentication Interface Message Text MEDICAL DECISION MAKING: Normal echocardiogram Assessment & Plan assisted by in vitro fertilization echocardiogram showed well-formed cardiac structures with reassuring flow patterns and function. There were no significant abnormalities identified on the echocardiogram today. The chambers and outflow tracts of the heart appear normal. No significant valvar/septal defects or cardiac rhythm issues identified. I reviewed the general aspects of cardiac anatomy with the patient and what I evaluate for during a echocardiogram. A recent study suggests that there is a slightly higher prevalence of congenital heart disease in pregnancies assisted by reproductive technologies (1.85% in singletons and 2.23% in twins). [Prevalence of Congenital Heart Defects in Pregnancies Conceived by Assisted Reproductive Technology: A Cohort Study: Luke et al] There are limitations to echocardiography and identifying certain cardiac conditions (atrial septal defects, small ventricular septal defects, minor valve abnormalities, coronary artery anomalies, and certain aortic arch diseases). There are also certain heart conditions that can develop after despite the normal findings seen today (patent ductus arteriosus, coarctation of the aorta, cardiomyopathy). echocardiogram should be considered if there are any concerns for hypoxemia, unexplained respiratory distress, significant heart murmur, or hemodynamic compromise despite the findings on the echocardiogram today given the aforementioned limitations. Thank you for allow me to participate in her care. Please feel free to contact our office if there are any concerns prior to delivery. Follow-up timing: No further cardiology follow-up required prior to delivery, unless new concerns arise I reviewed the general aspects of cardiac anatomy with the patient and what I evaluate for during a echocardiogram. There are limitations to echocardiography and identifying certain cardiac conditions (atrial septal defects, small ventricular septal defects, minor valve abnormalities, coronary artery anomalies, and certain aortic arch diseases). There are also certain heart conditions that can develop after despite the normal findings seen today (i.e. patent ductus arteriosus, coarctation of the aorta, cardiomyopathy). An urgent echocardiogram should be considered if there are any concerns for hypoxemia, unexplained respiratory distress, significant heart murmur, or hemodynamic compromise despite the findings on the echocardiogram today given the aforementioned limitations. Follow-up timing: No further cardiology follow-up required prior to delivery, unless new concerns arise Patient was seen in [facility] cardiology clinic today at the request of Osmani Llanes MD for my opinion/medical advice regarding Suboptimal cardiac views of the heart . History of Presenting Problem History of Present Illness Barby Caballero is a 34 year old female who presents for a cardiology evaluation due to poor visualization of the heart during a maternal medicine scan. She was referred by maternal medicine for evaluation of heart visualization issues. She is with a baby boy, conceived through IVF. A previous maternal medicine scan showed difficulty in visualizing the heart, leading to this referral. During a prior echocardiogram, the fetus's position, often facing her spine, hindered heart visualization. There is no family history of heart disease in young people on her side. The father has muscular dystrophy and undergoes yearly cardiology evaluations. Estimated Date of Delivery: 05/19/25 27w6d Obstetric history: OB History Para Term AB Living 2 1 0 0 0 0 SAB IAB Ectopic Multiple Live Births 0 0 0 0 0 # 1 - Date: None, Sex: None, Weight: None, GA: None, Type: None, Apgar1: None, Apgar5: None, Living: None, Comments: None # 2 - Date: None, Sex: None, Weight: None, GA: None, Type: None, Apgar1: None, Apgar5: None, Living: None, Comments: None Past medical history: History reviewed. No pertinent past medical history. Social History: Visit time+time components: 30 minutes Documenting in the medical record Counseling with the patient/family Review of the medical record Thank you very much for allowing me to participate in the care of this patient. Please do not hesitate to contact me if there are questions regarding these findings. Normal [facility] Senior Lead Java Developer Office Visit Reporton 01-29-2025 Senior Lead Java Developer Office Visit Report [facility]'s [address], [address] [place] [address] OFFICE VISIT Date of Service: 01/29/25 MR#: [id number] Acct: [id number] Name: BARBY CABALLERO Rep #: [id number] : 1990 Provider: Dr. Edel Dover DO Age/Sex: 34/F Location: [facility] [place] Status: Signed Intake Vital Signs 10/09/24 14:36 11/10/24 18:31 01/01/25 10:10 01/29/25 10:30 Height 5 ft 2 in 5 ft 2 in 5 ft 2 in 5 ft 2 in Weight: 261 lb 4 oz BMI 47.7 BP 114/81 H Intake Visit Reasons: 24 WK OB *DOC ONLY* Chief Complaint: 24 Week OB Leasing Property Manager Required: No Is patient in pain?: No Allergies No Known Allergies Allergy (Verified 01/29/25 10:31) Medications ???Medication ???Instructions ???Recorded ???Confirmed ???Type escitalopram oxalate 10 mg tablet 10 mg PO DAILY #30 tabs 07/20/24 01/29/25 Rx (Lexapro) docosahexaenoic acid 200 mg 200 mg PO DAILY #90 caps 07/28/24 01/29/25 Rx capsule ( DHA) levothyroxine 25 mcg tablet 25 mcg PO QDAY #90 tabs 10/14/24 0 01/29/25 Rx (Synthroid) promethazine 25 mg tablet 25 mg PO Q6H PRN headache #30 tabs 12/17/24 01/29/25 Rx famotidine 40 mg tablet (Pepcid) 40 mg PO DAILY #30 tabs 01/11/25 0 01/29/25 Rx breast pump #1 ea 01/29/25 01/29/25 Rx Last Menstrual Period: 08/12/24 Zika: Zika virus screening: Negative : No PFSH PFSH Medical History PCOS (polycystic ovarian syndrome) Infertility Depression with anxiety GERD (gastroesophageal reflux disease) Surgical History H/O successful vaginal after , currently H/O section History of surgical procedure S/P cholecystectomy S/P S/P wisdom tooth extraction Family History Mother Hypertension Grandfather Heart disease Hypertension Diabetes Cancer Macular degeneration Grandmother Macular degeneration Social History adopted: No household members: spouse and children housing: house number of children: 1 current occupational status: unemployed current occupation: [employer] current occupational exposures/hazards: No 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) pets and animals: cat(s) history of recent travel: Yes ([place] for IVF) out of state: Yes sexually active: Yes Smoking Status: Former smoker quit date: 09/30/21 alcohol intake: current alcohol intake frequency: holidays/special occasions only details: Not while substance use type: former substance user Date of last use: May 2024 and marijuana diet: vegetarian well-balanced diet: about half the time caffeine: Yes Type: carbonated beverages Number of servings: 1 eating out: 4 or more times/week during the past year weight has: remained stable what type of physical activity do you participate in: none landon/anabaptist: None seatbelt use: always do you feel safe at home: Yes additional social history: : [employer] (works from home) History 2 Elective abortions Hx Para 1 Spontaneous abortions Hx # Term Pregnancies 1 Ectopic pregnancies Hx # Pregnancies Multiple births # of living children 1 Past Pregnancies Del. Date Name GA/Weeks Outcome Route Bth Weight Gen Labor Lgth Anesthesia Del Locatn Provider FOB 07/18/21 Larry 40 live - full term 7lbs 7oz Male gene ral [facility] Delivery Date: 07/18/21 Last Updated by: Aida Shields RN Induce d/t failure to progress naturally .. Slow progression of labor w/ decels .. Failed vacuum delivery into emergency csec HPI 24 WK OB *DOC ONLY* Details: BARBY CABALLERO is a 34 year old who presents for routine OB visit. OB Visit ANTONIO Calculator Estimated Delivery Date Method Current WG Current Estimate 05/19/25 Conception 24w 2d Expected Delivery Route/Plan repeat c/s Specific Issue/Plans Covid status: [] Flu vaccine: [] Tdap vaccine: [] Rhogam: [] LARC form signed: [] Problem list reviewed and updated with the most current plan of care details and appropriate orders placed. Relevant counseling for the gestational age provided. Continue routine care and follow up unless otherwise noted in visit notes/problem list details Initial Weight: 264 lb Date -???-???-???-???-??? -???-???-???-???-??? -???-???- EGA Weight BP Urine Prot -???-???-???-???-??? -???-???-???-???-??? -???-???- Glucose FHR FuHt Pres Dilation -???-???-???-???-??? -???-???-???-???-??? -???-???- Effaced St Visit Note 10/09/24 -???-???-???-???-??? -???-???-???-?? (more content not included)... Normal [facility] - Chemistry and C hemistry - challengeOrdered By: Apple Lao on 01-01-2025 Glucose Ql (U) Negative [facility] - UrinalysisOrder ed By: Apple Lao on 01-01-2025 Protein Ql (U) Negative [facility] Senior Lead Java Developer Office Visit Reporton 01-01-2025 Senior Lead Java Developer Office Visit Report [facility]'s [address], [address] [place] [address] OFFICE VISIT Date of Service: 01/01/25 MR#: [id number] Acct: [id number] Name: BARBY CABALLERO Rep #: [id number] : 1990 Provider: Dr. Apple martínez MD Age/Sex: 34/F Location: [facility] [place] Status: Signed Intake Vital Signs 10/09/24 14:36 12/03/24 13:34 01/01/25 10:10 Height 5 ft 2 in 5 ft 2 in 5 ft 2 in Weight: 262 lb 2 oz BMI 47.9 BP 125/82 H Intake Visit Reasons: 20 WK OB *DOC ONLY* Chief Complaint: 20 Week OB Leasing Property Manager Required: No Is patient in pain?: No Allergies No Known Allergies Allergy (Verified 01/01/25 10:09) Medications ???Medication ???Instructions ???Recorded ???Confirmed ???Type escitalopram oxalate 10 mg tablet 10 mg PO DAILY #30 tabs 07/20/24 01/01/25 Rx (Lexapro) famotidine 40 mg tablet (Pepcid) 40 mg PO DAILY #30 tabs 07/20/24 0 01/01/25 Rx docosahexaenoic acid 200 mg 200 mg PO DAILY #90 caps 07/28/24 01/01/25 Rx capsule ( DHA) levothyroxine 25 mcg tablet 25 mcg PO QDAY #90 tabs 10/14/24 0 01/01/25 Rx (Synthroid) promethazine 25 mg tablet 25 mg PO Q6H PRN headache #30 tabs 12/17/24 01/01/25 Rx Last Menstrual Period: 08/12/24 Zika: Zika virus screening: Negative : No PFSH PFSH Medical History PCOS (polycystic ovarian syndrome) Infertility Depression with anxiety GERD (gastroesophageal reflux disease) Surgical History H/O successful vaginal after , currently H/O section History of surgical procedure S/P cholecystectomy S/P S/P wisdom tooth extraction Family History Mother Hypertension Grandfather Heart disease Hypertension Diabetes Cancer Macular degeneration Grandmother Macular degeneration Social History adopted: No household members: spouse and children housing: house number of children: 1 current occupational status: unemployed current occupation: [employer] current occupational exposures/hazards: No 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) pets and animals: cat(s) history of recent travel: Yes ([place] for IVF) out of state: Yes sexually active: Yes Smoking Status: Former smoker quit date: 09/30/21 alcohol intake: current alcohol intake frequency: holidays/special occasions only details: Not while substance use type: former substance user Date of last use: May 2024 and marijuana diet: vegetarian well-balanced diet: about half the time caffeine: Yes Type: carbonated beverages Number of servings: 1 eating out: 4 or more times/week during the past year weight has: remained stable what type of physical activity do you participate in: none landon/anabaptist: None seatbelt use: always do you feel safe at home: Yes additional social history: : [employer] (works from home) History 2 Elective abortions Hx Para 1 Spontaneous abortions Hx # Term Pregnancies 1 Ectopic pregnancies Hx # Pregnancies Multiple births # of living children 1 Past Pregnancies Del. Date Name GA/Weeks Outcome Route Bth Weight Infant Gen Labor Lgth Anesthesia Del Locatn Provider FOB 07/18/21 Larry 40 live - full term 7lbs 7oz Male gene ral [facility] Delivery Date: 07/18/21 Last Updated by: Aida Shields RN Induce d/t failure to progress naturally .. Slow progression of labor w/ decels .. Failed vacuum delivery into emergency csec HPI 20 WK OB *DOC ONLY* Details: BARBY CABALLERO is a 34 year old who presents for routine OB visit. OB Visit ANTONIO Calculator Estimated Delivery Date Method Current WG Current Estimate 05/19/25 Conception 20w 2d Expected Delivery Route/Plan repeat c/s Specific Issue/Plans Covid status: [] Flu vaccine: [] Tdap vaccine: [] Rhogam: [] LARC form signed: [] Problem list reviewed and updated with the most current plan of care details and appropriate orders placed. Relevant counseling for the gestational age provided. Continue routine care and follow up unless otherwise noted in visit notes/problem list details Initial Weight: 264 lb Date -???-???-???-???-??? -???-???-???-???-??? -???-???- EGA Weight BP Urine Prot -???-???-???-???-??? -???-???-???-???-??? -???-???- Glucose FHR FuHt Pres Dilation -???-???-???-???-??? -???-???-???-???-??? -???-???- Effaced St Visit Note 10/09/24 -???-???-???-???-??? -???-???-???-???-??? -???-???- 8w 2d 264 lb (+0 oz) 120/76 -???-???-???-???-??? -?? (more content not included)... Normal [facility] Senior Lead Java Developer Office Visit Reporton 12-03-2024 Senior Lead Java Developer Office Visit Report [facility] [address] [place] [address], [address] [place] [address] OFFICE VISIT Date of Service: 12/03/24 MR#: [id number] Acct: [id number] Name: BARBY CABALLERO Rep #: [id number] : 1990 Provider: Dr. Edel Dover, Age/Sex: 34/F Location: [facility] [place] Status: Signed Intake Vital Signs 10/09/24 14:36 11/10/24 18:31 12/03/24 13:32 12/03/24 13:34 Height 5 ft 2 in 5 ft 2 in 5 ft 2 in 5 ft 2 in Weight: 262 lb 6 oz BMI 47.9 BP 120/82 H Intake Visit Reasons: 16 WK OB *DOC ONLY* Leasing Property Manager Required: No Is patient in pain?: No Allergies No Known Allergies Allergy (Verified 12/03/24 13:31) Medications ???Medication ???Instructions ???Recorded ???Confirmed ???Type escitalopram oxalate 10 mg tablet 10 mg PO DAILY #30 tabs 07/20/24 12/03/24 Rx (Lexapro) famotidine 40 mg tablet (Pepcid) 40 mg PO DAILY #30 tabs 07/20/24 0 12/03/24 Rx docosahexaenoic acid 200 mg 200 mg PO DAILY #90 caps 07/28/24 12/03/24 Rx capsule ( DHA) levothyroxine 25 mcg tablet 25 mcg PO QDAY #90 tabs 10/14/24 0 12/03/24 Rx (Synthroid) Last Menstrual Period: 08/12/24 Zika: Zika virus screening: Negative : No PFSH PFSH Medical History PCOS (polycystic ovarian syndrome) Infertility Depression with anxiety GERD (gastroesophageal reflux disease) Surgical History H/O successful vaginal after , currently H/O section History of surgical procedure S/P cholecystectomy S/P S/P wisdom tooth extraction Family History Mother Hypertension Grandfather Heart disease Hypertension Diabetes Cancer Macular degeneration Grandmother Macular degeneration Social History adopted: No household members: spouse and children housing: house number of children: 1 current occupational status: unemployed current occupation: [employer] current occupational exposures/hazards: No 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) pets and animals: cat(s) history of recent travel: Yes ([place] for IVF) out of state: Yes sexually active: Yes Smoking Status: Former smoker quit date: 09/30/21 alcohol intake: current alcohol intake frequency: holidays/special occasions only details: Not while substance use type: former substance user Date of last use: May 2024 and marijuana diet: vegetarian well-balanced diet: about half the time caffeine: Yes Type: carbonated beverages Number of servings: 1 eating out: 4 or more times/week during the past year weight has: remained stable what type of physical activity do you participate in: none landon/anabaptist: None seatbelt use: always do you feel safe at home: Yes additional social history: : [employer] (works from home) History 2 Elective abortions Hx Para 1 Spontaneous abortions Hx # Term Pregnancies 1 Ectopic pregnancies Hx # Pregnancies Multiple births # of living children 1 Past Pregnancies Del. Date Name GA/Weeks Outcome Route Bth Weight Infant Gen Labor Lgth Anesthesia Del Locatn Provider FOB 07/18/21 Larry 40 live - full term 7lbs 7oz Male gene ral [facility] Delivery Date: 07/18/21 Last Updated by: Aida Shields RN Induce d/t failure to progress naturally .. Slow progression of labor w/ decels .. Failed vacuum delivery into emergency csec HPI 16 WK OB *DOC ONLY* Details: BARBY CABALLERO is a 34 year old who presents for routine OB visit. OB Visit ANTONIO Calculator Estimated Delivery Date Method Current WG Current Estimate 05/19/25 Conception 16w 1d Expected Delivery Route/Plan repeat c/s Specific Issue/Plans Covid status: [] Flu vaccine: [] Tdap vaccine: [] Rhogam: [] LARC form signed: [] Problem list reviewed and updated with the most current plan of care details and appropriate orders placed. Relevant counseling for the gestational age provided. Continue routine care and follow up unless otherwise noted in visit notes/problem list details Initial Weight: 264 lb Date -???-???-???-???-??? -???-???-???-???-??? -???-???- EGA Weight BP Urine Prot -???-???-???-???-??? -???-???-???-???-??? -???-???- Glucose FHR FuHt Pres Dilation -???-???-???-???-??? -???-???-???-???-??? -???-???- Effaced St Visit Note 10/09/24 -???-???-???-???-??? -???-???-???-???-??? -???-???- 8w 2d 264 lb (+0 oz) 120/76 -???-???-???-???-??? -???-???-???-???-??? -???-???- 169 -???-???-???-???-??? -???-???-???-???-??? -???-???- KW-CRL (more content not included)... Normal [facility] 12 Lead EKGon 11-10-2024 12 Lead EKG [facility] Cardiovascular Services [address] [place] [address] 12 Lead EKG 11/10/242034 MR#: [id number] Acct: [id number] Name: BARBY CABALLERO Rep #: [id number] : 1990 34 From: Ravi Fung MD Attending Dr: Status: DEP ER Ordering Dr: Ld Fermin MD Date: 11/10/24 Location: ED Sex: F C Admitted: Test Reason : DYSRHYTHMIA Blood Pressure : */* mmHG Vent. Rate : 109 BPM Atrial Rate : 109 BPM P-R Int : 118 ms QRS Dur : 72 ms QT Int : 324 ms P-R-T Axes : 47 14 -7 degrees QTcB Int : 436 ms Sinus tachycardia Otherwise normal ECG Confirmed by Ravi Fung ([id number]), publications editor DAYNE HOGAN ([id number]) on 11/11/2024 11:26:16 AM Referred By: Confirmed By: Ravi Fung 11/11/24 1126 Date Ravi Fung MD CC: Dr. Steffen Eisenberg MD; Dr. Ld Fermin MD Signed Normal [facility] Absolute lymphocyte countOrd ered By: Ld Fermin on 11-10-2024 Lymphocytes Auto (Unsp spec) [#/Vol] 3.59 10*3/uL 0.83-4.51 [facility] Absolute neutrophil countOrd ered By: Ldondina Fermin on 11-10-2024 Neutrophils (Bld) [#/Vol] 9.3 10*3/uL High 2.0-7.7 [facility] Automated lymphocyte count a s percentage of total leukocytesOrdered By: Ld Fermin on 11-10-2024 Lymphocytes/100 WBC Auto (Unsp spec) 25.8 % 19-41 [facility] Basic Metabolic Profile (BMP )on 11-10-2024 BUN/CRE 8.8 RATIO Low 10-20 [facility] Comment on above: Performed By: #### B TS, L3890.6100, L501.9520, L3890.6005, L3890.6300, L506.0400, L509.4005, L509.8000, L3410.9999, L501.9985, L100.0100 #### [facility] [address], [address] CA,Total 9.9 mg/dL Normal 8.5-10.1 [facility] Comment on above: Performed By: #### B TS, L3890.6100, L501.9520, L3890.6005, L3890.6300, L506.0400, L509.4005, L509.8000, L3410.9999, L501.9985, L100.0100 #### [facility] [address] [place], [address] Chloride [Moles/Vol] 108 mmol/L High 98-107 [facility] Comment on above: Performed By: #### B TS, L3890.6100, L501.9520, L3890.6005, L3890.6300, L506.0400, L509.4005, L509.8000, L3410.9999, L501.9985, L100.0100 #### [facility] [address] [place], [address] CO2 [Moles/Vol] 24.0 mmol/L Normal 21.0-32.0 [facility] Comment on above: Performed By: #### B TS, L3890.6100, L501.9520, L3890.6005, L3890.6300, L506.0400, L509.4005, L509.8000, L3410.9999, L501.9985, L100.0100 #### [facility] [address] [place], [address] Creatinine [Mass/Vol] 0.57 mg/dL Normal 0.55-1.02 [facility] Comment on above: Result Comment: The validity of the calculated GFR GFRAA in patients over 70 years has not been determined. Clinical correlation is essential. Performed By: #### B TS, L3890.6100, L501.9520, L3890.6005, L3890.6300, L506.0400, L509.4005, L509.8000, L3410.9999, L501.9985, L100.0100 #### [facility] [address] [place], [address] ECRCL 167.72 ml/min Normal [facility] Comment on above: Performed By: #### B TS, L3890.6100, L501.9520, L3890.6005, L3890.6300, L506.0400, L509.4005, L509.8000, L3410.9999, L501.9985, L100.0100 #### [facility] [address] [place], [address] EST GFR - AA 157 mL/min Normal >60 [facility] Comment on above: Result Comment: Afri can Honduran GFR Calc Performed By: #### B TS, L3890.6100, L501.9520, L3890.6005, L3890.6300, L506.0400, L509.4005, L509.8000, L3410.9999, L501.9985, L100.0100 #### [facility] [address] [place], [address] GAP 8 Normal 5-15 [facility] Comment on above: Performed By: #### B TS, L3890.6100, L501.9520, L3890.6005, L3890.6300, L506.0400, L509.4005, L509.8000, L3410.9999, L501.9985, L100.0100 #### [facility] [address] [place], [address] GFR/1.73 sq M.predicted among non-blacks MDRD (S/P/Bld) [Vol rate/Area] 129 mL/min/{1.73_m2} Normal >60 [facility] Comment on above: Result Comment: Non- GFR Calc Performed By: #### B TS, L3890.6100, L501.9520, L3890.6005, L3890.6300, L506.0400, L509.4005, L509.8000, L3410.9999, L501.9985, L100.0100 #### [facility] [address] [place], [address] Glucose [Mass/Vol] 86 mg/dL Normal 74-106 [facility] Comment on above: Performed By: #### B TS, L3890.6100, L501.9520, L3890.6005, L3890.6300, L506.0400, L509.4005, L509.8000, L3410.9999, L501.9985, L100.0100 #### [facility] [address] [place], [address] Potassium [Moles/Vol] 3.4 mmol/L Low 3.5-5.1 [facility] Comment on above: Performed By: #### B TS, L3890.6100, L501.9520, L3890.6005, L3890.6300, L506.0400, L509.4005, L509.8000, L3410.9999, L501.9985, L100.0100 #### [facility] [address] [place], [address] Sodium [Moles/Vol] 140 mmol/L Normal 136-145 [facility] Comment on above: Performed By: #### B TS, L3890.6100, L501.9520, L3890.6005, L3890.6300, L506.0400, L509.4005, L509.8000, L3410.9999, L501.9985, L100.0100 #### [facility] [address] [place], [address] Urea nitrogen [Mass/Vol] 5 mg/dL Low 7-18 [facility] Comment on above: Performed By: #### B TS, L3890.6100, L501.9520, L3890.6005, L3890.6300, L506.0400, L509.4005, L509.8000, L3410.9999, L501.9985, L100.0100 #### [facility] [address] [place], [address] Basophil percentageOrdered B y: Ld Fermin on 11-10-2024 Basophils/100 WBC (Bld) 0.5 % 0-1 [facility] Blood urea nitrogen (BUN)/cr eatinine ratioOrdered By: Ld Fermin on 11-10-2024 Urea nitrogen/Creatinine [Mass ratio] 8.8 mg/mg Low 10-20 [facility] CBC W/Diff, Automatedon 10-31 Absolute Lymph 3.59 X10 3/uL Normal 0.83-4.51 [facility] Comment on above: Performed By: #### B TS, L3890.6100, L501.9520, L3890.6005, L3890.6300, L506.0400, L509.4005, L509.8000, L3410.9999, L501.9985, L100.0100 #### [facility] [address] [place], [place], [id number] Absolute Neut 9.3 X10 3/uL High 2.0-7.7 [facility] Comment on above: Performed By: #### B TS, L3890.6100, L501.9520, L3890.6005, L3890.6300, L506.0400, L509.4005, L509.8000, L3410.9999, L501.9985, L100.0100 #### [facility] [address] [place], [place], [address] Basophils/100 WBC (Bld) 0.5 % Normal 0-1 [facility] Comment on above: Performed By: #### B TS, L3890.6100, L501.9520, L3890.6005, L3890.6300, L506.0400, L509.4005, L509.8000, L3410.9999, L501.9985, L100.0100 #### [facility] [address] [place], [address] Eosinophils/100 WBC (Bld) 1.2 % Normal 0-5 [facility] Comment on above: Performed By: #### B TS, L3890.6100, L501.9520, L3890.6005, L3890.6300, L506.0400, L509.4005, L509.8000, L3410.9999, L501.9985, L100.0100 #### [facility] [address] [place], [address] Erythrocyte distribution width (RBC) [Ratio] 12.8 % Normal 11.6-14.6 [facility] Comment on above: Performed By: #### B TS, L3890.6100, L501.9520, L3890.6005, L3890.6300, L506.0400, L509.4005, L509.8000, L3410.9999, L501.9985, L100.0100 #### [facility] [address] [place], [address] Hematocrit (Bld) [Volume fraction] 43.6 % Normal 37-47 [facility] Comment on above: Performed By: #### B TS, L3890.6100, L501.9520, L3890.6005, L3890.6300, L506.0400, L509.4005, L509.8000, L3410.9999, L501.9985, L100.0100 #### [facility] [address] [place], [address] Hemoglobin (Bld) [Mass/Vol] 14.8 g/dL Normal 12.0-15.0 [facility] Comment on above: Performed By: #### B TS, L3890.6100, L501.9520, L3890.6005, L3890.6300, L506.0400, L509.4005, L509.8000, L3410.9999, L501.9985, L100.0100 #### [facility] [address] [place], [address] IG% 0.600 Normal 0.0-0.9 [facility] Comment on above: Result Comment: IG% - Immature Granulocytes (promyelocytes, myelocytes and metamyelocytes) > 1% indicates that a LEFT SHIFT is Present. Performed By: #### B TS, L3890.6100, L501.9520, L3890.6005, L3890.6300, L506.0400, L509.4005, L509.8000, L3410.9999, L501.9985, L100.0100 #### [facility] [address] [place], [address] Lymphocytes/100 WBC (Bld) 25.8 % Normal 19-41 [facility] Comment on above: Performed By: #### B TS, L3890.6100, L501.9520, L3890.6005, L3890.6300, L506.0400, L509.4005, L509.8000, L3410.9999, L501.9985, L100.0100 #### [facility] [address] [place], [address] MCH (RBC) [Entitic mass] 28.8 pg Normal 27.0-32.0 [facility] Comment on above: Performed By: #### B TS, L3890.6100, L501.9520, L3890.6005, L3890.6300, L506.0400, L509.4005, L509.8000, L3410.9999, L501.9985, L100.0100 #### [facility] [address] [facility] [place], [address] MCHC (RBC) [Mass/Vol] 33.9 g/dL Normal 32-36 [facility] Comment on above: Performed By: #### B TS, L3890.6100, L501.9520, L3890.6005, L3890.6300, L506.0400, L509.4005, L509.8000, L3410.9999, L501.9985, L100.0100 #### [facility] [address] [place], [address] MCV (RBC) [Entitic vol] 84.8 fL Normal 81-99 [facility] Comment on above: Performed By: #### B TS, L3890.6100, L501.9520, L3890.6005, L3890.6300, L506.0400, L509.4005, L509.8000, L3410.9999, L501.9985, L100.0100 #### [facility] [address] [place], [address] Monocytes/100 WBC (Bld) 5.1 % Normal 0-10 [facility] Comment on above: Performed By: #### B TS, L3890.6100, L501.9520, L3890.6005, L3890.6300, L506.0400, L509.4005, L509.8000, L3410.9999, L501.9985, L100.0100 #### [facility] [address] [place], [address] Neutrophils/100 WBC (Bld) 66.8 % Normal 47-70 [facility] Comment on above: Performed By: #### B TS, L3890.6100, L501.9520, L3890.6005, L3890.6300, L506.0400, L509.4005, L509.8000, L3410.9999, L501.9985, L100.0100 #### [facility] [address] [place], [address] Nucleated RBC (Bld) [#/Vol] 0 10*3/uL Normal 0-5 [facility] Comment on above: Performed By: #### B TS, L3890.6100, L501.9520, L3890.6005, L3890.6300, L506.0400, L509.4005, L509.8000, L3410.9999, L501.9985, L100.0100 #### [facility] [address] [place], [address] Platelet mean volume (Bld) [Entitic vol] 9.3 fL Normal 6.2-12.0 [facility] Comment on above: Performed By: #### B TS, L3890.6100, L501.9520, L3890.6005, L3890.6300, L506.0400, L509.4005, L509.8000, L3410.9999, L501.9985, L100.0100 #### [facility] [address] [place], [address] Platelets (Bld) [#/Vol] 373 10*3/uL Normal 150-450 [facility] Comment on above: Performed By: #### B TS, L3890.6100, L501.9520, L3890.6005, L3890.6300, L506.0400, L509.4005, L509.8000, L3410.9999, L501.9985, L100.0100 #### [facility] [address] [place], [address] RBC (Bld) [#/Vol] 5.14 10*6/uL Normal 4.2-5.4 [facility] Comment on above: Performed By: #### B TS, L3890.6100, L501.9520, L3890.6005, L3890.6300, L506.0400, L509.4005, L509.8000, L3410.9999, L501.9985, L100.0100 #### [facility] [address] [place], [address] RDW SD 39.5 fl Normal 35.1-43.9 [facility] Comment on above: Performed By: #### B TS, L3890.6100, L501.9520, L3890.6005, L3890.6300, L506.0400, L509.4005, L509.8000, L3410.9999, L501.9985, L100.0100 #### [facility] [address] [place], [address] WBC (Bld) [#/Vol] 13.9 10*3/uL High 4.4-11.0 [facility] Comment on above: Performed By: #### B TS, L3890.6100, L501.9520, L3890.6005, L3890.6300, L506.0400, L509.4005, L509.8000, L3410.9999, L501.9985, L100.0100 #### [facility] [address] [place], [place], [address] Carbon dioxide measurementOr dered By: Ld Fermin on 11-10-2024 CO2 [Moles/Vol] 24.0 mmol/L 21.0-32.0 [facility] Chloride measurementOrdered By: Ld Fermin on 11-10-2024 Chloride [Moles/Vol] 108 mmol/L High 98-107 [facility] D-Dimer Quantitative (DVT/PE )on 11-10-2024 D-DIMER QUANT < 0.27 Low 0.27-0.49 [facility] Comment on above: Result Comment: NORM AL D-Dimer level (<0.50) indicates no DVT or PE. Performed By: #### B TS, L3890.6100, L501.9520, L3890.6005, L3890.6300, L506.0400, L509.4005, L509.8000, L3410.9999, L501.9985, L100.0100 #### [facility] [address] [place], [address] Emergency Department Summary on 11-10-2024 Emergency Department Summary [facility] Medical Records Department [address] [place] [address] Emergency Department Summary 11/10/24 MR#: [id number] Acct: [id number] Name: BARBY CABALLERO Rep #: [id number] : 1990 34 From: Ld Fermin MD PCP: Dr. Steffen Eisenberg MD Status:REG ER Location: ED ADDENDUM by Dr. Ld Fermin MD on 11/10/24 at 4 I omitted to document that patient had a seizure in triage when the IV was placed. Patient looked on her Apple Watch at the time her heart rate was 40. This is consistent with a vasovagal episode. Patient is a very anxious person. When I was speaking with her every time she asked questions if she was can be all right her heart rate sped up. Prior to talking to her heart rate was low 100s i.e. 100-104. Suspect there is a anxiety component. 11/10/242233 Cosigner Signature (if applicable): cc: Dr. Steffen Eisenberg MD * Signed ADDENDUM by Dr. Ld Fermin MD on 11/10/24 at 2221 EKG that was performed at 2034 revealed a sinus tachycardia rate of 109. NH interval is 118 ms. Cures duration 72 ms. QT duration 304 ms. Pollock is normal other than the tachycardia EKG is normal. 11/10/242220 Cosigner Signature (if applicable): cc: Dr. Steffen Eisenberg MD * Signed HPI History of Present Illness Chief Complaint: Palpitations Detail of Chief Complaint: Patient presents with palpitations/fast heart rate and mild shortness of br Informant: patient Onset/Context/Timing Onset: Today and Hours Context: Sudden Onset Timing: Continuous Current Severity: Mild Maximum Severity: Moderate Worsened by: Nothing Relieved by: Nothing Associated Symptoms Associated Symptoms: Fast heart rate and shortness of breath Narrative Narrative: Patient is a 34-year-old female who is 13 weeks gestation. She presents because of rapid heartbeat and shortness of breath. She has no history of PE or DVT. She has no risk factors for VTE. There is no family history of VTE. She was ill with respiratory symptoms last week. She states her symptoms have resolved. She denies headache, visual, ocular auditory symptoms. She denies rhinorrhea, congestion or postnasal drainage. She denies sore throat. She denies chest discomfort of any type including pleuritic. She does report fast heart rate. She does endorse feeling lightheaded and slightly shortness of breath. She denies cough. She denies leg pain or swelling. She denies abdominal pain, nausea, vomiting or diarrhea. She denies dysuria, urgency or hematuria. She does endorse increased urination. She denies rash. She denies myalgias or arthralgias. Prior similar symptoms: No Recent Illness/Hospitalizat ion: No PFSH PFS Medical History PCOS (polycystic ovarian syndrome) Infertility Depression with anxiety GERD (gastroesophageal reflux disease) Home Medications ???Medication ???Instructions ???Recorded ???Last Taken ???Type escitalopram oxalate 10 mg tablet 10 mg PO DAILY #30 tabs 07/20/24 Unknown Rx (Lexapro) famotidine 40 mg tablet (Pepcid) 40 mg PO DAILY #30 tabs 07/20/24 U nknown Rx docosahexaenoic acid 200 mg 200 mg PO DAILY #90 caps 07/28/24 Unknown Rx capsule ( DHA) levothyroxine 25 mcg tablet 25 mcg PO QDAY #90 tabs 10/14/24 U nknown Rx (Synthroid) Allergy/AdvReac Type Severity Reaction Status Date / Time No Known Allergies Allergy Verified 11/10/24 18:31 Family History Mother Hypertension Grandfather Heart disease Hypertension Diabetes Cancer Macular degeneration Grandmother Macular degeneration Surgical History H/O successful vaginal after , currently H/O section History of surgical procedure S/P cholecystectomy S/P S/P wisdom tooth extraction Social History adopted: No household members: spouse and children housing: house number of children: 1 current occupational status: unemployed current occupation: [employer] current occupational exposures/hazards: No 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) pets and animals: cat(s) history of recent travel: Yes ([place] for IVF) out of state: Yes sexually active: Yes Smoking Status: Former smoker quit date: 09/30/21 alcohol intake: current alcohol intake frequency: holidays/special occasions only details: Not while substance use type: former substance user Date of last use: May 2024 and marijuana diet: vegetarian well-balanced diet: about half the time caffeine: Yes Type: carbonated beverages Number of servings: 1 eating out: 4 or more times/week during the past year weight has: remained stable what type of (more content not included)... Normal [facility] Eosinophil percentageOrdered By: Ld Fermin on 11-10-2024 Eosinophils/100 WBC (Bld) 1.2 % 0-5 [facility] Erythrocyte distribution wid th ratioOrdered By: Ldondina Fermin on 11-10-2024 Erythrocyte distribution width (RBC) [Ratio] 12.8 % 11.6-14.6 [facility] Erythrocyte distribution wid th standard deviationOrdered By: Ld Fermin on 11-10-2024 Erythrocyte distribution width (RBC) [Ratio] 39.5 fl 35.1-43.9 [facility] Glomerular filtration rate ( GFR) estimationOrdered By: Ld Fermin on 11-10-2024 GFR/1.73 sq M.predicted among non-blacks MDRD (S/P/Bld) [Vol rate/Area] 129 mL/min/{1.73_m2} >60 [facility] Comment on above: Non- GFR Calc Glucose measurementOrdered B y: Ld Fermin on 11-10-2024 Glucose [Mass/Vol] 86 mg/dL 74-106 [facility] Hematocrit Auto (Bld) [Volum e fraction]Ordered By: Ld Fermin on 11-10-2024 Hematocrit (Bld) [Volume fraction] 43.6 % 37-47 [facility] Hemoglobin measurementOrdere d By: Ld Fermin on 11-10-2024 Hemoglobin (Bld) [Mass/Vol] 14.8 g/dL 12.0-15.0 [facility] Immature granulocytes/100 WB C Auto (Bld)Ordered By: Ld Fermin on 11-10-2024 Immature granulocytes/100 WBC (Bld) 0.600 % 0.0-0.9 [facility] Comment on above: IG% - Immature Granu locytes (promyelocytes, myelocytes and metamyelocytes) > 1% indicates that a LEFT SHIFT is Present. MCV (mean corpuscular volume ) determinationOrdered By: Ldondina Fermin on 11-10-2024 MCV (RBC) [Entitic vol] 84.8 fL 81-99 [facility] Mean corpuscular hemoglobin (MCH) determinationOrdered By: Ldondina Fermin on 11-10-2024 MCH (RBC) [Entitic mass] 28.8 pg 27.0-32.0 [facility] Mean corpuscular hemoglobin concentration (MCHC) determinationOrdered By: Ldondina Fermin on 11-10-2024 MCHC (RBC) [Mass/Vol] 33.9 g/dL 32-36 [facility] Mean platelet volume determi nationOrdered By: Ldondina Fermin on 11-10-2024 Platelet mean volume (Bld) [Entitic vol] 9.3 fL 6.2-12.0 [facility] Monocyte percentageOrdered B y: Ld Fermin on 11-10-2024 Monocytes/100 WBC (Bld) 5.1 % 0-10 [facility] Neutrophil percentageOrdered By: Ldondina Fermin on 11-10-2024 Neutrophils/100 WBC (Bld) 66.8 % 47-70 [facility] Nucleated red blood cell per centageOrdered By: Ldondina Fermin on 11-10-2024 Nucleated RBC/100 WBC (Bld) [Ratio] 0 % 0-5 [facility] Platelet countOrdered By: [facility] Zander on 11-10-2024 Platelets (Bld) [#/Vol] 373 10*3/uL 150-450 [facility] Potassium measurementOrdered By: Ldondina Fermin on 11-10-2024 Potassium [Moles/Vol] 3.4 mmol/L Low 3.5-5.1 [facility] RBC Auto (Bld) [#/Vol]Ordere d By: Ld Fermin on 11-10-2024 RBC (Bld) [#/Vol] 5.14 10*6/uL 4.2-5.4 [facility] Serum anion gap measurementO rdered By: Ld Fermin on 11-10-2024 Anion gap [Moles/Vol] 8 mmol/L 5-15 [facility] Serum or plasma calcium kenisha urement (mass/volume)Ordered By: Ld Fermin on 11-10-2024 Calcium [Mass/Vol] 9.9 mg/dL 8.5-10.1 [facility] Serum or plasma creatinine m easurement (mass/volume)Ordered By: Ldondina Fermin on 11-10-2024 Creatinine [Mass/Vol] 0.57 mg/dL 0.55-1.02 [facility] Comment on above: The validity of the calculated GFR & GFRAA in patients over 70 years has not been determined. Clinical correlation is essential. Serum or plasma urea nitroge n measurement (mass/volume)Ordered By: Ld Fermin on 11-10-2024 Urea nitrogen [Mass/Vol] 5 mg/dL Low 7-18 [facility] Sodium levelOrdered By: Ld Fermin on 11-10-2024 Sodium [Moles/Vol] 140 mmol/L 136-145 [facility] White blood cell (WBC) count Ordered By: Ld Fermin on 11-10-2024 WBC (Bld) [#/Vol] 13.9 10*3/uL High 4.4-11.0 [facility] - Chemistry and C hemistry - challengeOrdered By: Edel Diehl on 11-05-2024 Glucose Ql (U) Negative [facility] - UrinalysisOrder ed By: Edel Diehl on 11-05-2024 Protein Ql (U) Negative [facility] Senior Lead Java Developer Office Visit Reporton 11-05-2024 Senior Lead Java Developer Office Visit Report [facility] [address], [address] [place] [address] OFFICE VISIT Date of Service: 11/05/24 MR#: [id number] Acct: [id number] Name: BARBY CABALLERO Rep #: [id number] : 1990 Provider: Dr. Edel Dover DO Age/Sex: 34/F Location: [facility] [place] Status: Signed Intake Vital Signs 07/20/24 14:24 10/09/24 14:36 11/05/24 14:27 11/05/24 14:28 Height 5 ft 2 in 5 ft 2 in 5 ft 2 in 5 ft 2 in Weight: 260 lb BMI 47.5 BP 125/89 H Intake Visit Reasons: 12wk OB *DOC ONLY* Leasing Property Manager Required: No Is patient in pain?: No Allergies No Known Allergies Allergy (Verified 11/05/24 14:27) Medications ???Medication ???Instructions ???Recorded ???Confirmed ???Type escitalopram oxalate 10 mg tablet 10 mg PO DAILY #30 tabs 07/20/24 11/05/24 Rx (Lexapro) famotidine 40 mg tablet (Pepcid) 40 mg PO DAILY #30 tabs 07/20/24 0 11/05/24 Rx docosahexaenoic acid 200 mg 200 mg PO DAILY #90 caps 07/28/24 11/05/24 Rx capsule ( DHA) levothyroxine 25 mcg tablet 25 mcg PO QDAY #90 tabs 10/14/24 0 11/05/24 Rx (Synthroid) Last Menstrual Period: 08/12/24 Zika: Zika virus screening: Negative : No PFSH PFSH Medical History PCOS (polycystic ovarian syndrome) Infertility Depression with anxiety GERD (gastroesophageal reflux disease) Surgical History H/O successful vaginal after , currently H/O section History of surgical procedure S/P cholecystectomy S/P S/P wisdom tooth extraction Family History Mother Hypertension Grandfather Heart disease Hypertension Diabetes Cancer Macular degeneration Grandmother Macular degeneration Social History adopted: No household members: spouse and children housing: house number of children: 1 current occupational status: 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 current occupational exposures/hazards: No 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) pets and animals: cat(s) history of recent travel: Yes ([place] for IVF) out of state: Yes sexually active: Yes Smoking Status: Former smoker quit date: 09/30/21 alcohol intake: current alcohol intake frequency: holidays/special occasions only details: Not while substance use type: former substance user Date of last use: May 2024 and marijuana diet: vegetarian well-balanced diet: about half the time caffeine: Yes Type: carbonated beverages Number of servings: 1 eating out: 4 or more times/week during the past year weight has: remained stable what type of physical activity do you participate in: none landon/anabaptist: None seatbelt use: always do you feel safe at home: Yes additional social history: : [employer] (works from home) History 2 Elective abortions Hx Para 1 Spontaneous abortions Hx # Term Pregnancies 1 Ectopic pregnancies Hx # Pregnancies Multiple births # of living children 1 Past Pregnancies Del. Date Name GA/Weeks Outcome Route Bth Weight Gen Labor Lgth Anesthesia Del Locatn Provider FOB 07/18/21 Larry 40 live - full term 7lbs 7oz Male gene ral [facility] Delivery Date: 07/18/21 Last Updated by: Aida Shields RN Induce d/t failure to progress naturally .. Slow progression of labor w/ decels .. Failed vacuum delivery into emergency csec HPI 12wk OB *DOC ONLY* Details: BARBY CABALLERO is a 34 year old who presents for routine OB visit. OB Visit ANTONIO Calculator Estimated Delivery Date Method Current WG Current Estimate 05/19/25 Conception 12w 1d Expected Delivery Route/Plan repeat c/s Specific Issue/Plans Covid status: [] Flu vaccine: [] Tdap vaccine: [] Rhogam: [] LARC form signed: [] Problem list reviewed and updated with the most current plan of care details and appropriate orders placed. Relevant counseling for the gestational age provided. Continue routine care and follow up unless otherwise noted in visit notes/problem list details Initial Weight: 264 lb Date -???-???-???-???-??? -???-???-???-???-??? -???-???- EGA Weight BP Urine Prot -???-???-???-???-??? -???-???-???-???-??? -???-???- Glucose FHR FuHt Pres Dilation -???-???-???-???-??? -???-???-???-???-??? -???-???- Effaced St Visit Note 10/09/24 -???-???-???-???-??? -???-???-???-???-??? -???-???- 8w 2d 264 lb (+0 oz) 120/76 -???-???-???-???-??? -???-???-???-???-??? -???-???- 169 -???-???-???-???-??? -???-???-???-???-??? -???-???- KW-CRL cons (more content not included)... Normal [facility] HIV - WCHon 10-13-2024 HIV Non-Reactive Normal Nonreactive [facility] Comment on above: Order Comment: PN Performed By: #### B TS, L3890.6100, L501.9520, L3890.6005, L3890.6300, L506.0400, L509.4005, L509.8000, L3410.9999, L501.9985, L100.0100 #### [facility] [address] [place], [address] L3410.9999on 10-13-2024 [facility] Misc. COMMENT Normal . [facility] Comment on above: Order Comment: [id number] TSH RECEPTOR AB SERUM RF Result Comment: Test Ordered: [id number] Thyrotropin Receptor Ab, Serum Thyrotropin Receptor Ab, Serum <1.10 IU/L Reference Range: 0.00-1.75 Performed at: [address] [id number] Second Miller: Sue Martinez MD, Phone: [phone] Performed at: [address] [id number] Second [place]: Huan Kuhn PhD, Phone: [phone] Performed By: #### B TS, L3890.6100, L501.9520, L3890.6005, L3890.6300, L506.0400, L509.4005, L509.8000, L3410.9999, L501.9985, L100.0100 #### [facility] [address] [place], [place], [address] Chlamydia/GC CONCHITA aptimaon CHLAMY,NUC ACID Negative Normal Negative [facility] Comment on above: Performed By: #### B TS, L3890.6100, L501.9520, L3890.6005, L3890.6300, L506.0400, L509.4005, L509.8000, L3410.9999, L501.9985, L100.0100 #### [facility] [address] [place], [place], [address] GC BY NUC ACID Negative Normal Negative [facility] Comment on above: Result Comment: Perf ormed at: =[address] [id number] Second [place]: Ary Grider MD, Phone: [phone] Performed By: #### B TS, L3890.6100, L501.9520, L3890.6005, L3890.6300, L506.0400, L509.4005, L509.8000, L3410.9999, L501.9985, L100.0100 #### [facility] [address] [place], [address] Hepatitis B Surface Antigeno n 10-12-2024 HEP B Surf Ag Non-Reactive Normal Nonreactive [facility] Comment on above: Order Comment: Reaso n for Exam: Performed By: #### B TS, L3890.6100, L501.9520, L3890.6005, L3890.6300, L506.0400, L509.4005, L509.8000, L3410.9999, L501.9985, L100.0100 #### [facility] [address] [facility] [place], [address] Hepatitis C Antibodyon 10-12 Hepatitis C AB Non-Reactive Normal Nonreactive [facility] Comment on above: Order Comment: Reaso n for Exam: Result Comment: Non Reactive: < 0.8 Equivocal: >/= 0.8 to < 1.0 Reactive: >/= 1.0 The CDC requires that a reactive/equivocal HCV antibody result be sent out for confirmation. HCV Quant by PCR testing. Performed By: #### B TS, L3890.6100, L501.9520, L3890.6005, L3890.6300, L506.0400, L509.4005, L509.8000, L3410.9999, L501.9985, L100.0100 #### [facility] [address] [place], [address] L509.8000on 10-12-2024 Syphilis Abs Non-Reactive Normal [facility] Comment on above: Order Comment: Reaso n for Exam: Performed By: #### B TS, L3890.6100, L501.9520, L3890.6005, L3890.6300, L506.0400, L509.4005, L509.8000, L3410.9999, L501.9985, L100.0100 #### [facility] [address] [place], [place], [id number] Rubella IgGon 10-12-2024 Rubella IgG Reactive Normal Nonreactive [facility] Comment on above: Order Comment: Reaso n for Exam: Result Comment: Anti body Results Interpretation of Immune Status Non Reactive Presumed Non-Immune Equivocal Equivocal Reactive Presumed Immune Performed By: #### B TS, L3890.6100, L501.9520, L3890.6005, L3890.6300, L506.0400, L509.4005, L509.8000, L3410.9999, L501.9985, L100.0100 #### [facility] [address] [facility] [place], [place], [id number] Urine Cultureon 10-12-2024 [facility] Mixed Gram Positive Organisms Renovo Count 25,000-50,000 MIXC Mixed contaminants. Submit a new specimen if indicated. Normal [facility] Comment on above: Performed By: #### B TS, L3890.6100, L501.9520, L3890.6005, L3890.6300, L506.0400, L509.4005, L509.8000, L3410.9999, L501.9985, L100.0100 #### [facility] [address] [place], [place], [phone] [phone] CBC W/Diff, Automatedon 09-30 Absolute Lymph 2.85 X10 3/uL Normal 0.83-4.51 [facility] Comment on above: Performed By: #### B TS, L3890.6100, L501.9520, L3890.6005, L3890.6300, L506.0400, L509.4005, L509.8000, L3410.9999, L501.9985, L100.0100 #### [facility] [address] [place], [place], [phone] ([phone]) Absolute Neut 10.8 X10 3/uL High 2.0-7.7 [facility] Comment on above: Performed By: #### B TS, L3890.6100, L501.9520, L3890.6005, L3890.6300, L506.0400, L509.4005, L509.8000, L3410.9999, L501.9985, L100.0100 #### [facility] [address] [place], [place], [phone] (895) Basophils/100 WBC (Bld) 0.5 % Normal 0-1 [facility] Comment on above: Performed By: #### B TS, L3890.6100, L501.9520, L3890.6005, L3890.6300, L506.0400, L509.4005, L509.8000, L3410.9999, L501.9985, L100.0100 #### [facility] [address] [place], [place], [phone] (912) Eosinophils/100 WBC (Bld) 1.4 % Normal 0-5 [facility] Comment on above: Performed By: #### B TS, L3890.6100, L501.9520, L3890.6005, L3890.6300, L506.0400, L509.4005, L509.8000, L3410.9999, L501.9985, L100.0100 #### [facility] [address] [place], [place], [phone] ([phone]) Erythrocyte distribution width (RBC) [Ratio] 12.8 % Normal 11.6-14.6 [facility] Comment on above: Performed By: #### B TS, L3890.6100, L501.9520, L3890.6005, L3890.6300, L506.0400, L509.4005, L509.8000, L3410.9999, L501.9985, L100.0100 #### [facility] [address] [place], [place], [phone] (824) Hematocrit (Bld) [Volume fraction] 41.2 % Normal 37-47 [facility] Comment on above: Performed By: #### B TS, L3890.6100, L501.9520, L3890.6005, L3890.6300, L506.0400, L509.4005, L509.8000, L3410.9999, L501.9985, L100.0100 #### [facility] [address] [place], [address] Hemoglobin (Bld) [Mass/Vol] 14.1 g/dL Normal 12.0-15.0 [facility] Comment on above: Performed By: #### B TS, L3890.6100, L501.9520, L3890.6005, L3890.6300, L506.0400, L509.4005, L509.8000, L3410.9999, L501.9985, L100.0100 #### [facility] [address] [place], [address] IG% 0.500 Normal 0.0-0.9 [facility] Comment on above: Result Comment: IG% - Immature Granulocytes (promyelocytes, myelocytes and metamyelocytes) > 1% indicates that a LEFT SHIFT is Present. Performed By: #### B TS, L3890.6100, L501.9520, L3890.6005, L3890.6300, L506.0400, L509.4005, L509.8000, L3410.9999, L501.9985, L100.0100 #### [facility] [address] [place], [address] Lymphocytes/100 WBC (Bld) 19.2 % Normal 19-41 [facility] Comment on above: Performed By: #### B TS, L3890.6100, L501.9520, L3890.6005, L3890.6300, L506.0400, L509.4005, L509.8000, L3410.9999, L501.9985, L100.0100 #### [facility] [address] [place], [address] MCH (RBC) [Entitic mass] 28.8 pg Normal 27.0-32.0 [facility] Comment on above: Performed By: #### B TS, L3890.6100, L501.9520, L3890.6005, L3890.6300, L506.0400, L509.4005, L509.8000, L3410.9999, L501.9985, L100.0100 #### [facility] [address] [place], [address] MCHC (RBC) [Mass/Vol] 34.2 g/dL Normal 32-36 [facility] Comment on above: Performed By: #### B TS, L3890.6100, L501.9520, L3890.6005, L3890.6300, L506.0400, L509.4005, L509.8000, L3410.9999, L501.9985, L100.0100 #### [facility] [address] [place], [address] MCV (RBC) [Entitic vol] 84.1 fL Normal 81-99 [facility] Comment on above: Performed By: #### B TS, L3890.6100, L501.9520, L3890.6005, L3890.6300, L506.0400, L509.4005, L509.8000, L3410.9999, L501.9985, L100.0100 #### [facility] [address] [place], [address] Monocytes/100 WBC (Bld) 5.2 % Normal 0-10 [facility] Comment on above: Performed By: #### B TS, L3890.6100, L501.9520, L3890.6005, L3890.6300, L506.0400, L509.4005, L509.8000, L3410.9999, L501.9985, L100.0100 #### [facility] [address] [place], [address] Neutrophils/100 WBC (Bld) 73.2 % High 47-70 [facility] Comment on above: Performed By: #### B TS, L3890.6100, L501.9520, L3890.6005, L3890.6300, L506.0400, L509.4005, L509.8000, L3410.9999, L501.9985, L100.0100 #### [facility] [address] [place], [address] ( Nucleated RBC (Bld) [#/Vol] 0 10*3/uL Normal 0-5 [facility] Comment on above: Performed By: #### B TS, L3890.6100, L501.9520, L3890.6005, L3890.6300, L506.0400, L509.4005, L509.8000, L3410.9999, L501.9985, L100.0100 #### [facility] [address] [place], [address] Platelet mean volume (Bld) [Entitic vol] 9.1 fL Normal 6.2-12.0 [facility] Comment on above: Performed By: #### B TS, L3890.6100, L501.9520, L3890.6005, L3890.6300, L506.0400, L509.4005, L509.8000, L3410.9999, L501.9985, L100.0100 #### [facility] [address] [place], [address] Platelets (Bld) [#/Vol] 417 10*3/uL Normal 150-450 [facility] Comment on above: Performed By: #### B TS, L3890.6100, L501.9520, L3890.6005, L3890.6300, L506.0400, L509.4005, L509.8000, L3410.9999, L501.9985, L100.0100 #### [facility] [address] [place], [address] RBC (Bld) [#/Vol] 4.90 10*6/uL Normal 4.2-5.4 [facility] Comment on above: Performed By: #### B TS, L3890.6100, L501.9520, L3890.6005, L3890.6300, L506.0400, L509.4005, L509.8000, L3410.9999, L501.9985, L100.0100 #### [facility] [address] [place], [address] RDW SD 39.1 fl Normal 35.1-43.9 [facility] Comment on above: Performed By: #### B TS, L3890.6100, L501.9520, L3890.6005, L3890.6300, L506.0400, L509.4005, L509.8000, L3410.9999, L501.9985, L100.0100 #### [facility] [address] [place], [address] WBC (Bld) [#/Vol] 14.8 10*3/uL High 4.4-11.0 [facility] Comment on above: Performed By: #### B TS, L3890.6100, L501.9520, L3890.6005, L3890.6300, L506.0400, L509.4005, L509.8000, L3410.9999, L501.9985, L100.0100 #### [facility] [address] [place], [address] Hemoglobin A1con 10-09-2024 HbA1c (Bld) [Mass fraction] 5.2 % Normal 3.8-5.6 [facility] Comment on above: Result Comment: Norm al < 5.7 % Prediabetic 5.7 - 6.4 % Diabetic >or= 6.5 % Please note range changes. Performed By: #### B TS, L3890.6100, L501.9520, L3890.6005, L3890.6300, L506.0400, L509.4005, L509.8000, L3410.9999, L501.9985, L100.0100 #### [facility] [address] [place], [address] Senior Lead Java Developer Office Visit Reporton 10-09-2024 Senior Lead Java Developer Office Visit Report [facility] [address], [address] [place] [address] OFFICE VISIT Date of Service: 10/09/24 MR#: [id number] Acct: [id number] Name: BARBY CABALLERO Rep #: [id number] 32 : 1990 Provider: NU Red ams Age/Sex: 33/F Location: [facility] [place] Status: Signed Intake Vital Signs 07/20/24 14:24 10/09/24 14:36 10/09/24 14:36 Height 5 ft 2 in 5 ft 2 in 5 ft 2 in Weight: 264 lb BMI 48.2 BP 120/76 Intake Visit Reasons: LMP 11 LMP 05/19 IVF Leasing Property Manager Required: No Is patient in pain?: No Allergies No Known Allergies Allergy (Verified 10/02/24 11:44) Medications ???Medication ???Instructions ???Recorded ???Confirmed ???Type escitalopram oxalate 10 mg tablet 10 mg PO DAILY #30 tabs 07/20/24 10/09/24 Rx (Lexapro) famotidine 40 mg tablet (Pepcid) 40 mg PO DAILY #30 tabs 07/20/24 10/09/24 Rx levothyroxine 25 mcg tablet 25 mcg PO QDAY 07/20/24 10/09/24 History (Synthroid) docosahexaenoic acid 200 mg 200 mg PO DAILY #90 caps 07/28/24 10/09/24 Rx capsule ( DHA) diphenhydramine HCl 25 mg capsule 25 mg PO QHS PRN 10/02/24 10/09/24 History (Benadryl) estradiol 2 mg tablet 2 mg PO QDAY 10/02/24 10/09/24 History loratadine 10 mg tablet (Claritin) 10 mg PO QDAY 10/02/24 10/09/24 History progesterone 50 mg/mL 75 mg IM QDAY 10/02/24 10/09/24 History intramuscular oil progesterone micronized 100 mg 1 insert vaginal TID 10/02/24 10/09/24 History vaginal insert (Endometrin) Last Menstrual Period: 08/12/24 Zika: Zika virus screening: Negative : Yes Have you fallen in the past year?: No PFSH PFSH Medical History PCOS (polycystic ovarian syndrome) Infertility Depression with anxiety GERD (gastroesophageal reflux disease) Surgical History H/O successful vaginal after , currently H/O section History of surgical procedure S/P cholecystectomy S/P S/P wisdom tooth extraction Family History Mother Hypertension Grandfather Heart disease Hypertension Diabetes Cancer Macular degeneration Grandmother Macular degeneration Social History adopted: No household members: spouse and children housing: house number of children: 1 current occupational status: unemployed current occupation: [employer] current occupational exposures/hazards: No 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) pets and animals: cat(s) history of recent travel: Yes ([place] for IVF) out of state: Yes sexually active: Yes Smoking Status: Former smoker quit date: 09/30/21 alcohol intake: current alcohol intake frequency: holidays/special occasions only details: Not while substance use type: former substance user Date of last use: May 2024 and marijuana diet: vegetarian well-balanced diet: about half the time caffeine: Yes Type: carbonated beverages Number of servings: 1 eating out: 4 or more times/week during the past year weight has: remained stable what type of physical activity do you participate in: none landon/anabaptist: None seatbelt use: always do you feel safe at home: Yes additional social history: : 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) History 2 Elective abortions Hx Para 1 Spontaneous abortions Hx # Term Pregnancies 1 Ectopic pregnancies Hx # Pregnancies Multiple births # of living children 1 Past Pregnancies Del. Date Name GA/Weeks Outcome Route Bth Weight Gen Labor Lgth Anesthesia Del Locatn Provider FOB 07/18/21 Larry 40 live - full term 7lbs 7oz Male gene ral [facility] Delivery Date: 07/18/21 Last Updated by: Aida Shields RN Induce d/t failure to progress naturally .. Slow progression of labor w/ decels .. Failed vacuum delivery into emergency csec HPI LMP 08/12 LMP 05/19 IVF Details: BARBY CABALLERO is a 33 year old who presents for New OB visit. OB Visit ANTONIO Calculator Estimated Delivery Date Method Current WG Current Estimate 05/19/25 Conception 8w 2d Estimated Due Date: 05/19/25 Expected Delivery Route/Plan repeat c/s Specific Issue/Plans Covid status: [] Flu vaccine: [] Tdap vaccine: [] Rhogam: [] LARC form signed: [] Problem list reviewed and updated with the most current plan of care details and appropriate orders placed. Relevant counseling for the gestational age provided. Continue routine care and follow up unless otherwise noted in visit notes/problem list details Initial Weight: 264 lb (more content not included)... Normal [facility] T4 Free Directon 10-09-2024 T4 FREE DIRECT 1.29 ng/dL Normal 0.76-1.46 [facility] Comment on above: Performed By: #### B TS, L3890.6100, L501.9520, L3890.6005, L3890.6300, L506.0400, L509.4005, L509.8000, L3410.9999, L501.9985, L100.0100 #### [facility] [address] [place], [address] Thyroid Stim Hormone (TSH)on 10-09-2024 TSH 1.180 uIU/mL Normal 0.358-3.740 [facility] Comment on above: Performed By: #### B TS, L3890.6100, L501.9520, L3890.6005, L3890.6300, L506.0400, L509.4005, L509.8000, L3410.9999, L501.9985, L100.0100 #### [facility] [address] [place], [address] Type AND Screenon 10-09-2024 Ab SCREEN GEL Negative Normal [facility] Comment on above: Order Comment: PN Performed By: #### B TS, L3890.6100, L501.9520, L3890.6005, L3890.6300, L506.0400, L509.4005, L509.8000, L3410.9999, L501.9985, L100.0100 #### [facility] [address] [place], [place], [id number] Urine Drug Screen (VISTA)on 10-09-2024 AMPHETAMINES Negative Normal <1000 ng/mL [facility] Comment on above: Order Comment: PN Performed By: #### B TS, L3890.6100, L501.9520, L3890.6005, L3890.6300, L506.0400, L509.4005, L509.8000, L3410.9999, L501.9985, L100.0100 #### [facility] [address] [place], [place], [id number] BARBITIURATES Negative Normal < 200 ng/mL [facility] Comment on above: Order Comment: PN Performed By: #### B TS, L3890.6100, L501.9520, L3890.6005, L3890.6300, L506.0400, L509.4005, L509.8000, L3410.9999, L501.9985, L100.0100 #### [facility] [address] [place], [place], [id number] BENZODIAZIPINE Negative Normal < 200 ng/mL [facility] Comment on above: Order Comment: PN Performed By: #### B TS, L3890.6100, L501.9520, L3890.6005, L3890.6300, L506.0400, L509.4005, L509.8000, L3410.9999, L501.9985, L100.0100 #### [facility] [address] [place], [place], [id number] COCAINE Negative Normal < 300 ng/mL [facility] Comment on above: Order Comment: PN Performed By: #### B TS, L3890.6100, L501.9520, L3890.6005, L3890.6300, L506.0400, L509.4005, L509.8000, L3410.9999, L501.9985, L100.0100 #### [facility] [address] [place], [place], [id number] ECSTACY Negative Normal < 500 ng/mL [facility] Comment on above: Order Comment: PN Performed By: #### B TS, L3890.6100, L501.9520, L3890.6005, L3890.6300, L506.0400, L509.4005, L509.8000, L3410.9999, L501.9985, L100.0100 #### [facility] [address] [place], [place], [id number] METHADONE Negative Normal < 300 ng/mL [facility] Comment on above: Order Comment: PN Performed By: #### B TS, L3890.6100, L501.9520, L3890.6005, L3890.6300, L506.0400, L509.4005, L509.8000, L3410.9999, L501.9985, L100.0100 #### [facility] [address] [place], [address] OPIATES Negative Normal < 300 ng/mL [facility] Comment on above: Order Comment: PN Performed By: #### B TS, L3890.6100, L501.9520, L3890.6005, L3890.6300, L506.0400, L509.4005, L509.8000, L3410.9999, L501.9985, L100.0100 #### [facility] [address] [place], [place], [id number] PCP Negative Normal < 25 ng/mL [facility] Comment on above: Order Comment: PN Performed By: #### B TS, L3890.6100, L501.9520, L3890.6005, L3890.6300, L506.0400, L509.4005, L509.8000, L3410.9999, L501.9985, L100.0100 #### [facility] [address] [place], [address] THC Negative Normal < 50 ng/mL [facility] Comment on above: Order Comment: PN Performed By: #### B TS, L3890.6100, L501.9520, L3890.6005, L3890.6300, L506.0400, L509.4005, L509.8000, L3410.9999, L501.9985, L100.0100 #### [facility] [address] [place], [place], [id number] VISTA UDS PH 6 Normal [facility] Comment on above: Order Comment: PN Performed By: #### B TS, L3890.6100, L501.9520, L3890.6005, L3890.6300, L506.0400, L509.4005, L509.8000, L3410.9999, L501.9985, L100.0100 #### [facility] [address] [place], [address] Choriogonadotropin.beta subu niton 10-02-2024 [place] [address] m[IU]/mL High <5 U [facility] Comment on above: Order Comment: Total HCG measurement is performed using the [employer] Access Immunoassay which detects intact HCG and free beta HCG subunit. This test is not indicated for use as a tumor marker. HCG testing is performed using a different test methodology at [facility] than other [facility]. Direct result comparison should only be made within the same method. Result Comment: Low- level positive HCG results can be seen in early , in jason- or post-menopausal females due to normal pituitary HCG production, or with analytic interference. Repeat testing in 48-72 hours can aid in assessing for as results should double in this time period. FSH measurement is recommended in jason- or post-menopausal females as concurrent elevation of FSH can support pituitary production as the source of the HCG elevation. Performed By: #### 3 4549-6 #### DWAYNE Nair ([id number]) [facility] ([facility]) [id number] [place], [place] [id number] Estradiolon 10-02-2024 E2 [Mass/Vol] 506 pg/mL Normal [facility] Comment on above: Order Comment: REF V ALUESFOLLICULAR PHASE 20-144MID CYCLE 64-357LUTEAL PHASE 56-214POSTMENOPAUSE < 32PREPUBERTY < 20FEMALE 10-18Y 8-110MALE 10-18Y < 20ADULT MALE < 40 Performed By: #### 3 4549-6 #### DWAYNE Nair ([id number]) [facility] ([facility]) [address] [place] [address] Progesteroneon 10-02-2024 Progesterone [Mass/Vol] 26.5 ng/mL Normal [facility] Comment on above: Result Comment: Ref Values Male <0.3- 1.2 Follicular Phase <0.3- 1.4 Luteal Phase 3.3-25.6 Mid-Luteal Phase 4.4-28.0 Postmenopausal <0.3- 0.7 Females: 1st Trimester 11.2- 90.0 2nd Trimester 25.6- 89.4 3RD Trimester 48.4-422.5 Patients receiving DHEA-S supplements may show false elevation of progesterone for results near 1.0 ng/mL. Contact laboratory at [phone] if alternative testing is needed. Performed By: #### 3 4549-6 #### DWAYNE Nair ([id number]) [facility] ([facility]) [address] [place] [address] US PELVIS OB TRANSABDOMINAL W TRANSVAGINAL UP TO 1ST TRIMESTERon 10-02-2024 US PELVIS OB TRANSABDOMINAL W TRANSVAGINAL UP TO 1ST TRIMESTER Interpreted By: Dyllan De Jesus, STUDY: US PELVIS OB TRANSABDOMINAL W TRANSVAGINAL UP TO 1ST TRIMESTER; 10/02/2024 9:55 am INDICATION: Signs/Symptoms:PREGN RADHA. COMPARISON: None. ACCESSION NUMBER(S): [id number] ORDERING CLINICIAN: LEVON BRAXTON TECHNIQUE: Multiple grayscale ultrasonographic images were obtained through the pelvis utilizing transabdominal and endovaginal imaging. FINDINGS: UTERUS AND GESTATIONAL SAC: There is a single intrauterine gestational sac identified. Within the gestational sac, a yolk sac and pole are visualized. The mean gestational sac diameter measures 18.6 mm. The crown-rump length measures 5.6 mm. This corresponds to a gestational age of 6 weeks, 2 days +/-3 days. The heart rate measures at 139 beats per minute. The uterus measures at 11.3 cm in length and 5.6 x 7.0 cm in AP and in transverse diameters. The cervix is closed. ADNEXA/OVARIES: No discrete adnexal mass seen. RIGHT OVARY: The right ovary is not visualized. LEFT OVARY: Left ovary: Grossly unremarkable in appearance. Left ovary size: 3.1 x 1.7 x 3.6 cm FREE FLUID: None. IMPRESSION: 1. Single live intrauterine . 2. Estimated gestational age: 6 weeks 2 days +/-3 days. MACRO: None Signed by: Dyllan De Jesus 10/02/2024 11:52 AM Dictation workstation: [id number] [facility] US Pelvis transvaginalon 1. Single live intrauterine . 2. Estimated gestational age: 6 weeks 2 days +/-3 days. MACRO: None Signed by: Dyllan De Jesus 10/02/2024 11:52 AM Dictation workstation: [id number] MMODAL Interpreted By: Dyllan De Jesus, STUDY: US PELVIS OB TRANSABDOMINAL W TRANSVAGINAL UP TO 1ST TRIMESTER; 10/02/2024 9:55 am INDICATION: Signs/Symptoms:PREGN RADHA. COMPARISON: None. ACCESSION NUMBER(S): [id number] ORDERING CLINICIAN: LEVON BRAXTON TECHNIQUE: Multiple grayscale ultrasonographic images were obtained through the pelvis utilizing transabdominal and endovaginal imaging. FINDINGS: UTERUS AND GESTATIONAL SAC: There is a single intrauterine gestational sac identified. Within the gestational sac, a yolk sac and pole are visualized. The mean gestational sac diameter measures 18.6 mm. The crown-rump length measures 5.6 mm. This corresponds to a gestational age of 6 weeks, 2 days +/-3 days. The heart rate measures at 139 beats per minute. The uterus measures at 11.3 cm in length and 5.6 x 7.0 cm in AP and in transverse diameters. The cervix is closed. ADNEXA/OVARIES: No discrete adnexal mass seen. RIGHT OVARY: The right ovary is not visualized. LEFT OVARY: Left ovary: Grossly unremarkable in appearance. Left ovary size: 3.1 x 1.7 x 3.6 cm FREE FLUID: None. MMODAL Dyllan De Jesus MD - 10/02/2024 Interpreted By: Dyllan De Jesus, STUDY: US PELVIS OB TRANSABDOMINAL W TRANSVAGINAL UP TO 1ST TRIMESTER; 10/02/2024 9:55 am INDICATION: Signs/Symptoms:PREGN RADHA. COMPARISON: None. ACCESSION NUMBER(S): [id number] ORDERING CLINICIAN: LEVON BRAXTON TECHNIQUE: Multiple grayscale ultrasonographic images were obtained through the pelvis utilizing transabdominal and endovaginal imaging. FINDINGS: UTERUS AND GESTATIONAL SAC: There is a single intrauterine gestational sac identified. Within the gestational sac, a yolk sac and pole are visualized. The mean gestational sac diameter measures 18.6 mm. The crown-rump length measures 5.6 mm. This corresponds to a gestational age of 6 weeks, 2 days +/-3 days. The heart rate measures at 139 beats per minute. The uterus measures at 11.3 cm in length and 5.6 x 7.0 cm in AP and in transverse diameters. The cervix is closed. ADNEXA/OVARIES: No discrete adnexal mass seen. RIGHT OVARY: The right ovary is not visualized. LEFT OVARY: Left ovary: Grossly unremarkable in appearance. Left ovary size: 3.1 x 1.7 x 3.6 cm FREE FLUID: None. IMPRESSION: 1. Single live intrauterine . 2. Estimated gestational age: 6 weeks 2 days +/-3 days. MACRO: None Signed by: Dyllan De Jesus 10/02/2024 11:52 AM Dictation workstation: [id number] [facility] Work Phone: Radiology Study observation (narrative) [facility] Work Phone: US Pelvis transvaginalOrdere d By: Dyllan De Jesus on 10-02-2024 [facility] Work Phone: Choriogonadotropin.beta subu niton 09-25-2024 [place] [address] m[IU]/mL High <5 U [facility] Comment on above: Order Comment: Needs to go with a stat oil well services dispatcher Total HCG measurement is performed using the [employer] Access Immunoassay which detects intact HCG and free beta HCG subunit. This test is not indicated for use as a tumor marker. HCG testing is performed using a different test methodology at [facility] than other [facility]. Direct result comparison should only be made within the same method. Result Comment: Low- level positive HCG results can be seen in early , in jason- or post-menopausal females due to normal pituitary HCG production, or with analytic interference. Repeat testing in 48-72 hours can aid in assessing for as results should double in this time period. FSH measurement is recommended in jason- or post-menopausal females as concurrent elevation of FSH can support pituitary production as the source of the HCG elevation. Performed By: #### 3 4549-6 #### DWAYNE Nair ([id number]) [facility] ([facility]) [address] [place] [address] Estradiolon 09-25-2024 E2 [Mass/Vol] 423 pg/mL Normal [facility] Comment on above: Order Comment: Needs to go with a stat courierREF VALUESFOLLICULAR PHASE 20-144MID CYCLE 64-357LUTEAL PHASE 56-214POSTMENOPAUSE < 32PREPUBERTY < 20FEMALE 10-18Y 8-110MALE 10-18Y < 20ADULT MALE < 40 Performed By: #### 3 4549-6 #### DWAYNE Nair ([id number]) [facility] ([facility]) [address] [place] [address] Progesteroneon 09-25-2024 Progesterone [Mass/Vol] 37.3 ng/mL Normal [facility] Comment on above: Order Comment: Needs to go with a stat oil well services dispatcher Result Comment: Ref Values Male <0.3- 1.2 Follicular Phase <0.3- 1.4 Luteal Phase 3.3-25.6 Mid-Luteal Phase 4.4-28.0 Postmenopausal <0.3- 0.7 Females: 1st Trimester 11.2- 90.0 2nd Trimester 25.6- 89.4 3RD Trimester 48.4-422.5 Patients receiving DHEA-S supplements may show false elevation of progesterone for results near 1.0 ng/mL. Contact laboratory at [phone] if alternative testing is needed. Performed By: #### 3 4549-6 #### DWAYNE Nair ([id number]) [facility] ([facility]) [address] [place], [place] [id number] US PELVIS OB TRANSABDOMINAL W TRANSVAGINAL UP TO 1ST TRIMESTERon 09-25-2024 US PELVIS OB TRANSABDOMINAL W TRANSVAGINAL UP TO 1ST TRIMESTER Interpreted By: Dyllan De Jesus, STUDY: US PELVIS OB TRANSABDOMINAL W TRANSVAGINAL UP TO 1ST TRIMESTER; 09/25/2024 9:44 am INDICATION: Signs/Symptoms:POSIT MANUEL TEST. COMPARISON: None. ACCESSION NUMBER(S): [id number] ORDERING CLINICIAN: LEVON BRAXTON TECHNIQUE: Multiple grayscale ultrasonographic images were obtained through the pelvis utilizing transabdominal and endovaginal imaging. FINDINGS: UTERUS AND GESTATIONAL SAC: There is a single intrauterine gestational sac identified. Within the gestational sac, no yolk sac or pole are visualized. The mean gestational sac diameter measures 1.5 cm. This corresponds to a gestational age of 5 weeks, 5 days +/-7 days. No cardiac motion is identified. The uterus measures at 10.5 cm in length and 5.1 x 6.2 cm in AP and in transverse diameters. The cervix is closed. ADNEXA/OVARIES: No discrete adnexal mass seen. RIGHT OVARY: Right ovary: Grossly unremarkable in appearance. Right ovary size: 2.5 x 1.8 x 4.0 cm LEFT OVARY: Left ovary: Grossly unremarkable in appearance. Left ovary size: 3.2 x 1.9 x 2.5 cm FREE FLUID: None. IMPRESSION: 1. Single intrauterine . 2. Estimated gestational age: 5 weeks 5 days +/-10 days. 3. No pole or cardiac motion was identified, though this is likely secondary to early gestational age. Correlation with serial beta HCG levels is recommended. Repeat examination can be obtained in 1-2 weeks if clinically warranted. MACRO: None Signed by: Dyllan De Jesus 09/25/2024 10:40 AM Dictation workstation: [id number] [facility] US Pelvis transvaginalon 1. Single intrauterine . 2. Estimated gestational age: 5 weeks 5 days +/-10 days. 3. No pole or cardiac motion was identified, though this is likely secondary to early gestational age. Correlation with serial beta HCG levels is recommended. Repeat examination can be obtained in 1-2 weeks if clinically warranted. MACRO: None Signed by: Dyllan De Jesus 09/25/2024 10:40 AM Dictation workstation: [id number] MMODAL Interpreted By: Dyllan De Jesus, STUDY: US PELVIS OB TRANSABDOMINAL W TRANSVAGINAL UP TO 1ST TRIMESTER; 09/25/2024 9:44 am INDICATION: Signs/Symptoms:POSIT MANUEL TEST. COMPARISON: None. ACCESSION NUMBER(S): [id number] ORDERING CLINICIAN: LEVON BRAXTON TECHNIQUE: Multiple grayscale ultrasonographic images were obtained through the pelvis utilizing transabdominal and endovaginal imaging. FINDINGS: UTERUS AND GESTATIONAL SAC: There is a single intrauterine gestational sac identified. Within the gestational sac, no yolk sac or pole are visualized. The mean gestational sac diameter measures 1.5 cm. This corresponds to a gestational age of 5 weeks, 5 days +/-7 days. No cardiac motion is identified. The uterus measures at 10.5 cm in length and 5.1 x 6.2 cm in AP and in transverse diameters. The cervix is closed. ADNEXA/OVARIES: No discrete adnexal mass seen. RIGHT OVARY: Right ovary: Grossly unremarkable in appearance. Right ovary size: 2.5 x 1.8 x 4.0 cm LEFT OVARY: Left ovary: Grossly unremarkable in appearance. Left ovary size: 3.2 x 1.9 x 2.5 cm FREE FLUID: None. MMODAL Dyllan De Jesus MD - 09/25/2024 Interpreted By: Dyllan De Jesus, STUDY: US PELVIS OB TRANSABDOMINAL W TRANSVAGINAL UP TO 1ST TRIMESTER; 09/25/2024 9:44 am INDICATION: Signs/Symptoms:POSIT MNAUEL TEST. COMPARISON: None. ACCESSION NUMBER(S): [id number] ORDERING CLINICIAN: LEVON BRAXTON TECHNIQUE: Multiple grayscale ultrasonographic images were obtained through the pelvis utilizing transabdominal and endovaginal imaging. FINDINGS: UTERUS AND GESTATIONAL SAC: There is a single intrauterine gestational sac identified. Within the gestational sac, no yolk sac or pole are visualized. The mean gestational sac diameter measures 1.5 cm. This corresponds to a gestational age of 5 weeks, 5 days +/-7 days. No cardiac motion is identified. The uterus measures at 10.5 cm in length and 5.1 x 6.2 cm in AP and in transverse diameters. The cervix is closed. ADNEXA/OVARIES: No discrete adnexal mass seen. RIGHT OVARY: Right ovary: Grossly unremarkable in appearance. Right ovary size: 2.5 x 1.8 x 4.0 cm LEFT OVARY: Left ovary: Grossly unremarkable in appearance. Left ovary size: 3.2 x 1.9 x 2.5 cm FREE FLUID: None. IMPRESSION: 1. Single intrauterine . 2. Estimated gestational age: 5 weeks 5 days +/-10 days. 3. No pole or cardiac motion was identified, though this is likely secondary to early gestational age. Correlation with serial beta HCG levels is recommended. Repeat examination can be obtained in 1-2 weeks if clinically warranted. MACRO: None Signed by: Dyllan De Jesus 09/25/2024 10:40 AM Dictation workstation: [id number] [facility] Work Phone: Radiology Study observation (narrative) [facility] Work Phone: US Pelvis transvaginalOrdere d By: Dyllan De Jesus on 09-25-2024 [facility] Work Phone: Choriogonadotropin.beta subu niton 09-15-2024 HCG.beta subunit Qn 889 m[IU]/mL High <5 [facility] Comment on above: Order Comment: Stat, send with oil well services dispatcher Total HCG measurement is performed using the Tut[employer] Access Immunoassay which detects intact HCG and free beta HCG subunit. This test is not indicated for use as a tumor marker. HCG testing is performed using a different test methodology at [facility] than other [facility]. Direct result comparison should only be made within the same method. Result Comment: Low- level positive HCG results can be seen in early , in jason- or post-menopausal females due to normal pituitary HCG production, or with analytic interference. Repeat testing in 48-72 hours can aid in assessing for as results should double in this time period. FSH measurement is recommended in jason- or post-menopausal females as concurrent elevation of FSH can support pituitary production as the source of the HCG elevation. Performed By: #### 3 4549-6 #### DWAYNE Nair ([id number]) [facility] ([facility]) [address] [place] [address] 29364 Estradiolon 09-15-2024 E2 [Mass/Vol] 492 pg/mL Normal [facility] Comment on above: Order Comment: Stat, send with courierREF VALUESFOLLICULAR PHASE 20-144MID CYCLE 64-357LUTEAL PHASE 56-214POSTMENOPAUSE < 32PREPUBERTY < 20FEMALE 10-18Y 8-110MALE 10-18Y < 20ADULT MALE < 40 Performed By: #### 3 4549-6 #### DWAYNE Nair ([id number]) [facility] ([facility]) [address] [place] [address] 69049 Progesteroneon 09-15-2024 Progesterone [Mass/Vol] 31.2 ng/mL Normal [facility] Comment on above: Order Comment: Stat, send with oil well services dispatcher Result Comment: Ref Values Male <0.3- 1.2 Follicular Phase <0.3- 1.4 Luteal Phase 3.3-25.6 Mid-Luteal Phase 4.4-28.0 Postmenopausal <0.3- 0.7 Females: 1st Trimester 11.2- 90.0 2nd Trimester 25.6- 89.4 3RD Trimester 48.4-422.5 Patients receiving DHEA-S supplements may show false elevation of progesterone for results near 1.0 ng/mL. Contact laboratory at [phone] if alternative testing is needed. Performed By: #### 3 4549-6 #### DWAYNE Nair ([id number]) [facility] ([facility]) [address] [place] [address] 16536 Choriogonadotropin.beta subu niton 09-11-2024 HCG.beta subunit Qn 195 m[IU]/mL High <5 [facility] Comment on above: Order Comment: REF V ALUES FOLLICULAR PHASE 20-144 MID CYCLE 64-357 LUTEAL PHASE 56-214 POSTMENOPAUSE < 32 PREPUBERTY < 20 FEMALE 10-18Y 8-110 MALE 10-18Y < 20 ADULT MALE < 40 Result Comment: Low- level positive HCG results can be seen in early , in jason- or post-menopausal females due to normal pituitary HCG production, or with analytic interference. Repeat testing in 48-72 hours can aid in assessing for as results should double in this time period. FSH measurement is recommended in jason- or post-menopausal females as concurrent elevation of FSH can support pituitary production as the source of the HCG elevation. Performed By: #### 2 243-4 #### DWAYNE Nair ([id number]) [facility] ([facility]) [address] [place] [address] 41197 Estradiolon 09-11-2024 E2 [Mass/Vol] 347 pg/mL Normal [facility] Comment on above: Order Comment: REF V ALUES FOLLICULAR PHASE 20-144 MID CYCLE 64-357 LUTEAL PHASE 56-214 POSTMENOPAUSE < 32 PREPUBERTY < 20 FEMALE 10-18Y 8-110 MALE 10-18Y < 20 ADULT MALE < 40 Performed By: #### 2 243-4 #### DWAYNE Nair ([id number]) [facility] ([facility]) [address] [place] [address] 29212 Progesteroneon 09-11-2024 Progesterone [Mass/Vol] 43.6 ng/mL Normal [facility] Comment on above: Order Comment: Send with stat oil well services dispatcher Result Comment: Ref Values Male <0.3- 1.2 Follicular Phase <0.3- 1.4 Luteal Phase 3.3-25.6 Mid-Luteal Phase 4.4-28.0 Postmenopausal <0.3- 0.7 Females: 1st Trimester 11.2- 90.0 2nd Trimester 25.6- 89.4 3RD Trimester 48.4-422.5 Patients receiving DHEA-S supplements may show false elevation of progesterone for results near 1.0 ng/mL. Contact laboratory at [phone] if alternative testing is needed. Performed By: #### 3 4549-6 #### DWAYNE Nair ([id number]) [facility] ([facility]) [address] [place] [address] 75609 Thyrotropinon 09-11-2024 TSH Qn 2.28 m[IU]/L Normal 0.44-3.98 [facility] Comment on above: Order Comment: REF V ALUES FOLLICULAR PHASE 20-144 MID CYCLE 64-357 LUTEAL PHASE 56-214 POSTMENOPAUSE < 32 PREPUBERTY < 20 FEMALE 10-18Y 8-110 MALE 10-18Y < 20 ADULT MALE < 40 Performed By: #### 2 243-4 #### DWAYNE Nair ([id number]) [facility] ([facility]) [id number] [place] [address] Choriogonadotropin.beta subu niton 09-09-2024 HCG.beta subunit Qn 101 m[IU]/mL High <5 [facility] Comment on above: Order Comment: REF V ALUES FOLLICULAR PHASE 20-144 MID CYCLE 64-357 LUTEAL PHASE 56-214 POSTMENOPAUSE < 32 PREPUBERTY < 20 FEMALE 10-18Y 8-110 MALE 10-18Y < 20 ADULT MALE < 40 Result Comment: Low- level positive HCG results can be seen in early , in jason- or post-menopausal females due to normal pituitary HCG production, or with analytic interference. Repeat testing in 48-72 hours can aid in assessing for as results should double in this time period. FSH measurement is recommended in jason- or post-menopausal females as concurrent elevation of FSH can support pituitary production as the source of the HCG elevation. Performed By: #### 2 243-4 #### DWAYNE Nair ([id number]) [facility] ([facility]) [address] [place] [address] Progesteroneon 09-09-2024 Progesterone [Mass/Vol] 31.9 ng/mL Normal [facility] Comment on above: Order Comment: REF V ALUES FOLLICULAR PHASE 20-144 MID CYCLE 64-357 LUTEAL PHASE 56-214 POSTMENOPAUSE < 32 PREPUBERTY < 20 FEMALE 10-18Y 8-110 MALE 10-18Y < 20 ADULT MALE < 40 Result Comment: Ref Values Male <0.3- 1.2 Follicular Phase <0.3- 1.4 Luteal Phase 3.3-25.6 Mid-Luteal Phase 4.4-28.0 Postmenopausal <0.3- 0.7 Females: 1st Trimester 11.2- 90.0 2nd Trimester 25.6- 89.4 3RD Trimester 48.4-422.5 Patients receiving DHEA-S supplements may show false elevation of progesterone for results near 1.0 ng/mL. Contact laboratory at [phone] if alternative testing is needed. Performed By: #### 2 243-4 #### DWAYNE Nair ([id number]) [facility] ([facility]) [address] [place] [address] Estradiolon 09-04-2024 E2 [Mass/Vol] 222 pg/mL Normal [facility] Comment on above: Order Comment: REF V ALUES FOLLICULAR PHASE 20-144 MID CYCLE 64-357 LUTEAL PHASE 56-214 POSTMENOPAUSE < 32 PREPUBERTY < 20 FEMALE 10-18Y 8-110 MALE 10-18Y < 20 ADULT MALE < 40 Performed By: #### 2 243-4 #### DWAYNE Nair ([id number]) [facility] ([facility]) [id number] [place] [address] 39560 Progesteroneon 09-04-2024 Progesterone [Mass/Vol] 33.6 ng/mL Normal [facility] Comment on above: Result Comment: Ref Values Male <0.3- 1.2 Follicular Phase <0.3- 1.4 Luteal Phase 3.3-25.6 Mid-Luteal Phase 4.4-28.0 Postmenopausal <0.3- 0.7 Females: 1st Trimester 11.2- 90.0 2nd Trimester 25.6- 89.4 3RD Trimester 48.4-422.5 Patients receiving DHEA-S supplements may show false elevation of progesterone for results near 1.0 ng/mL. Contact laboratory at [phone] if alternative testing is needed. Performed By: #### 2 243-4 #### DWAYNE Nair ([id number]) [facility] ([facility]) [address] [place] [address] 90232 Progesteroneon 08-25-2024 Progesterone [Mass/Vol] 0.5 ng/mL Normal [facility] Comment on above: Order Comment: REF V ALUES FOLLICULAR PHASE 20-144 MID CYCLE 64-357 LUTEAL PHASE 56-214 POSTMENOPAUSE < 32 PREPUBERTY < 20 FEMALE 10-18Y 8-110 MALE 10-18Y < 20 ADULT MALE < 40 Result Comment: Ref Values Male <0.3- 1.2 Follicular Phase <0.3- 1.4 Luteal Phase 3.3-25.6 Mid-Luteal Phase 4.4-28.0 Postmenopausal <0.3- 0.7 Females: 1st Trimester 11.2- 90.0 2nd Trimester 25.6- 89.4 3RD Trimester 48.4-422.5 Patients receiving DHEA-S supplements may show false elevation of progesterone for results near 1.0 ng/mL. Contact laboratory at [phone] if alternative testing is needed. Performed By: #### 2 243-4 #### DWAYNE Nair ([id number]) [facility] ([facility]) [id number] [place] [address] 82779 Estradiolon 08-21-2024 E2 [Mass/Vol] 427 pg/mL Normal [facility] Comment on above: Order Comment: REF V ALUES FOLLICULAR PHASE 20-144 MID CYCLE 64-357 LUTEAL PHASE 56-214 POSTMENOPAUSE < 32 PREPUBERTY < 20 FEMALE 10-18Y 8-110 MALE 10-18Y < 20 ADULT MALE < 40 Performed By: #### 2 243-4 #### DWAYNE Nair ([id number]) [facility] ([facility]) [id number] [place] [address] Lutropinon 08-21-2024 Lutropin Qn 11.4 IU/L Normal [facility] Comment on above: Result Comment: LH R eference Values Follicular Phase 1.9-12.5 IU/L Mid-Cycle 8.7-76.3 IU/L Luteal Phase 0.5-16.9 IU/L Post Menopause 5.0-55.2 IU/L Children 0- 6.0 IU/L Adult Male 18-70 years 1.5- 9.3 IU/L Adult Male >70 years 3.1-34.6 IU/L Performed By: #### 2 1198-7 #### VILLATORO ENRIQUETA ([id number]) [facility] ([facility]) [address] [place] [address] Progesteroneon 08-21-2024 Progesterone [Mass/Vol] 0.6 ng/mL Normal [facility] Comment on above: Result Comment: Ref Values Male <0.3- 1.2 Follicular Phase <0.3- 1.4 Luteal Phase 3.3-25.6 Mid-Luteal Phase 4.4-28.0 Postmenopausal <0.3- 0.7 Females: 1st Trimester 11.2- 90.0 2nd Trimester 25.6- 89.4 3RD Trimester 48.4-422.5 Patients receiving DHEA-S supplements may show false elevation of progesterone for results near 1.0 ng/mL. Contact laboratory at [phone] if alternative testing is needed. Performed By: #### 2 243-4 #### DWAYNE Nair ([id number]) [facility] ([facility]) [address] [place] [address] US PELVIS TRANSABDOMINAL WIT H TRANSVAGINALon 08-21-2024 US PELVIS TRANSABDOMINAL WITH TRANSVAGINAL Interpreted By: Jeremy Brower, STUDY: US PELVIS TRANSABDOMINAL WITH TRANSVAGINAL; 08/21/2024 8:38 am INDICATION: Signs/Symptoms:ROMULO PABLO ,Z31.83 Encounter for assisted reproductive fertility procedure cycle COMPARISON: 08/14/2024 ACCESSION NUMBER(S): [id number] ORDERING CLINICIAN: LEVON BRAXTON TECHNIQUE: Multiple multiplanar static amos scale, color and spectral waveform sonographic images of the pelvis were obtained. FINDINGS: Limited evaluation secondary to patient body habitus. UTERUS: The uterus measures 5.4 cm x 3.6 cm x 10.7 cm. The uterine myometrium appears unremarkable. A trace amount of fluid is seen in the cervix. ENDOMETRIUM: The endometrium measures a thickness of 0.7 cm, which is normal. RIGHT ADNEXA: The right ovary measures 2.3 cm x 2.1 cm x 2.4 cm and demonstrates normal flow. A single 1.0 x 0.8 x 0.8 cm follicular cyst is seen. LEFT ADNEXA: The left ovary measures 1.9 cm x 1.9 cm x 3.3 cm and demonstrates normal flow. A single 0.6 x 0.7 x 0.6 cm follicular cyst is seen. CUL DE SAC: No gross free fluid is seen in the pelvic cul-de-sac. IMPRESSION: 1. A 1 cm follicular cyst is seen in the right ovary and a 0.7 cm follicular cyst is seen in the left ovary. 2. Nonspecific trace amount of free fluid seen in the cervix. MACRO: None Signed by: Jeremy Brower 08/22/2024 10:52 AM Dictation workstation: [id number] [facility] Choriogonadotropin.beta subu niton 08-14-2024 HCG.beta subunit Qn m[IU]/mL Normal <5 [facility] Comment on above: Order Comment: Total HCG measurement is performed using the [employer] Access Immunoassay which detects intact HCG and free beta HCG subunit. This test is not indicated for use as a tumor marker. HCG testing is performed using a different test methodology at [facility] than other [facility]. Direct result comparison should only be made within the same method. Performed By: #### 2 1198-7 #### VILLATORO ENRIQUETA ([id number]) [facility] ([facility]) [address] [place] [address] Estradiolon 08-14-2024 E2 [Mass/Vol] 42 pg/mL [facility] Comment on above: Order Comment: Total HCG measurement is performed using the [employer] Access Immunoassay which detects intact HCG and free beta HCG subunit. This test is not indicated for use as a tumor marker. HCG testing is performed using a different test methodology at [facility] than other [facility]. Direct result comparison should only be made within the same method. Performed By: #### 2 1198-7 #### SHAUNA ROBISON ([id number]) [facility] ([facility]) [facility] [place] [address] Follitropin and Lutropin rhoades el Qnon 08-14-2024 Follitropin Qn 6.4 IU/L [facility] Comment on above: Order Comment: Total HCG measurement is performed using the [employer] Access Immunoassay which detects intact HCG and free beta HCG subunit. This test is not indicated for use as a tumor marker. HCG testing is performed using a different test methodology at [facility] than [facility]. Direct result comparison should only be made within the same method. Result Comment: FSH Ref Values Follicular 2.0-12.0 IU/L Mid-Cycle 12.0-25.0 IU/L Luteal Phase 2.0-12.0 IU/L Menopause 30.0-150.0 IU/L Pre-puberty 50% Adult IU/L Adult Male 2.0-10.0 IU/L Infants 0.0-1.0 IU/L Performed By: #### 2 1198-7 #### SHAUNA ROBISON ([id number]) [facility] ([facility]) [facility] [place] [address] Lutropin Qn 5.0 IU/L [facility] Comment on above: Order Comment: Total HCG measurement is performed using the [employer] Access Immunoassay which detects intact HCG and free beta HCG subunit. This test is not indicated for use as a tumor marker. HCG testing is performed using a different test methodology at [facility] than other [facility]. Direct result comparison should only be made within the same method. Result Comment: LH R eference Values Follicular Phase 1.9-12.5 IU/L Mid-Cycle 8.7-76.3 IU/L Luteal Phase 0.5-16.9 IU/L Post Menopause 5.0-55.2 IU/L Children 0- 6.0 IU/L Adult Male 18-70 years 1.5- 9.3 IU/L Adult Male >70 years 3.1-34.6 IU/L Performed By: #### 2 1198-7 #### SHAUNA ROBISON ([id number]) [facility] ([facility]) [address] [place] [address] Progesteroneon 08-14-2024 Progesterone [Mass/Vol] 0.5 ng/mL Normal [facility] Comment on above: Order Comment: Total HCG measurement is performed using the [employer] Access Immunoassay which detects intact HCG and free beta HCG subunit. This test is not indicated for use as a tumor marker. HCG testing is performed using a different test methodology at [facility] than other [facility]. Direct result comparison should only be made within the same method. Result Comment: Ref Values Male <0.3- 1.2 Follicular Phase <0.3- 1.4 Luteal Phase 3.3-25.6 Mid-Luteal Phase 4.4-28.0 Postmenopausal <0.3- 0.7 Females: 1st Trimester 11.2- 90.0 2nd Trimester 25.6- 89.4 3RD Trimester 48.4-422.5 Patients receiving DHEA-S supplements may show false elevation of progesterone for results near 1.0 ng/mL. Contact laboratory at [phone] if alternative testing is needed. Performed By: #### 2 1198-7 #### SHAUNA ROBISON ([id number]) [facility] ([facility]) [facility] [place] [address] Thyrotropinon 08-14-2024 TSH Qn 1.86 m[IU]/L Normal 0.44-3.98 [facility] Comment on above: Order Comment: Total HCG measurement is performed using the [employer] Access Immunoassay which detects intact HCG and free beta HCG subunit. This test is not indicated for use as a tumor marker. HCG testing is performed using a different test methodology at [facility] than other [facility]. Direct result comparison should only be made within the same method. Performed By: #### 2 1198-7 #### VILLATORO ENRIQUETA ([id number]) [facility] ([facility]) [address] [place] [address] US PELVIS TRANSABDOMINAL WIT H TRANSVAGINALon 08-14-2024 US PELVIS TRANSABDOMINAL WITH TRANSVAGINAL Interpreted By: Ravi Triplett, STUDY: US PELVIS TRANSABDOMINAL WITH TRANSVAGINAL; ; 08/14/2024 8:54 am INDICATION: Signs/Symptoms:FERTI LITY. COMPARISON: 06/24/2024 ACCESSION NUMBER(S): [id number] ORDERING CLINICIAN: LEVON BRAXTON TECHNIQUE: Multiple transabdominal and endovaginal sonographic images of the pelvis were performed. FINDINGS: The uterus measures 9.5 x 4.1 x 6.0 cm in diameter. The double wall endometrial thickness is 7 mm. There is no uterine mass or fluid distention of the endometrial cavity. There is no sign of free pelvic fluid. The right ovary measures 3.3 x 1.9 x 3.4 cm in diameter. There are 2 follicles visualized in the right ovary measuring 14 x 10 x 12 mm and 6 x 5 x 8 mm. Doppler interrogation of the right ovary demonstrates normal arterial activity. The left ovary measures 3.2 x 2.8 x 2.9 cm in diameter. 2 follicles are identified in the left ovary measuring 9 x 8 x 9 mm and 9 x 8 x 10 mm. There is no dominant ovarian mass. Doppler interrogation of the left ovary demonstrates normal arterial activity. IMPRESSION: Small follicles are identified in both ovaries there are no dominant mass. There is no ovarian torsion. Normal sonographic appearance of the uterus. MACRO: None Signed by: Ravi Triplett 08/15/2024 2:03 PM Dictation workstation: [id number] [facility] Internal Medicine Office Vis itorajani 07-16-2024 Internal Medicine Office Visit [facility] [address] [place] [address] [id number] OFFICE VISIT Date of Service: 07/20/24 MR#: [id number] Acct: [id number] Name: BARBY CABALLERO Rep #: [id number] : 1990 Provider: Dr. 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 Accompanied by: Self Is patient in pain?: No Allergies No Known Allergies Allergy (Verified 07/20/24 14:18) Medications ???Medication ???Instructions ???Recorded ???Confirmed ???Type docosahexaenoic acid 200 mg mg PO 11/04/23 07/20/24 History capsule ( DHA) escitalopram oxalate 10 mg tablet 10 mg PO DAILY #30 tabs 07/20/24 07/20/24 Rx (Lexapro) famotidine 40 mg tablet (Pepcid) 40 mg PO DAILY #30 tabs 07/20/24 07/20/24 Rx levothyroxine 25 mcg tablet 25 mcg PO QDAY 07/20/24 07/20/24 History (Synthroid) PFSH Medical History PCOS (polycystic ovarian syndrome) Infertility Depression with anxiety GERD (gastroesophageal reflux disease) Surgical History (Updated 07/20/24 @ 14:[address] Steffen Eisenberg MD) History of surgical procedure S/P cholecystectomy S/P S/P wisdom tooth extraction Family History Mother Hypertension Grandfather Heart disease Hypertension Diabetes Cancer Macular degeneration Grandmother Macular degeneration Social History (Updated 07/20/24 @ 14:[address] Steffen Eisenberg MD) household members: spouse and children housing: house current occupational status: unemployed Smoking Status: Former smoker quit date: 09/30/21 alcohol intake: current alcohol intake frequency: holidays/special occasions only details: occasionally substance use type: does not use caffeine: Yes what type of physical activity do you participate in: none seatbelt use: always do you feel safe at home: Yes additional social history: - [facility]avi [facility] HPI Chief Complaint: est care Details: BARBY CABALLERO, is a 33 F who presents to the office today to establish care. She was seeing a provider in [place] and last saw them in April 2023. She is not due for any routine blood work and is up to date on her screening. She does plan on getting her flu shot. She doesn't smoke and does need refills. She reports she is eating healthy and staying active. The patient has a history of GERD. She takes pepcid and reports that her symptoms are well controlled. She denies any problems with the medication. She reports she has been on multiple different medications in the past. The patient has been on lexapro for around 18 years. She takes it for depression and anxiety. She states the lexapro is helpful. She states she does still have some anxiety symptoms with it, however. She reports she will be hypersensitive to her body image and health. She feels like she wants to maintain herself on her current dosing right now given that she is trying to get . She feels that overall her symptoms are manageable. The patient follows with a fertility specialist in [place]. She just completed an egg retrieval last month and will start treatment next month. She was placed on synthroid by the fertility team to help with . She reports her TSH, however, was in normal range. ROS Const Constitutional: Positive for headache(s); No body ache, chills, excessive sweating, fatigue, fever(s), frequent falls, snoring, weakness, weight change or change in appetite Eyes Eyes: No blurry vision, change in vision, eye pain or Light sensitivity ENT ENT: Positive for headache(s); No abnormal hearing, ear or mastoid pain, tinnitus, nasal congestion, neck pain or sore throat Resp Respiratory: No cough, shortness of breath, snoring or wheezing Cardio Cardiology: Positive for palpitations (occasional flutters); No chest pain at rest, chest pain with exertion, excessive sweating, dyspnea on exertion, lightheadedness, orthopnea or other (no leg swelling) Gastro GI: No abdominal pain, change in bowel habits, constipation, cramping, diarrhea, nausea/dyspepsia or vomiting Genitourinary-Female : Positive for abnormal periods; No difficulty urinating, burning urination, painful urination, urinary incontinence or urinary frequency Musc Musculoskeletal: No abnormal gait, joint pain, back pain, limited range of (more content not included)... Normal [facility] Estradiolon 06-24-2024 E2 [Mass/Vol] 453 pg/mL Normal [facility] Comment on above: Order Comment: Total HCG measurement is performed using the [employer] Access Immunoassay which detects intact HCG and free beta HCG subunit. This test is not indicated for use as a tumor marker. HCG testing is performed using a different test methodology at [facility] than other [facility]. Direct result comparison should only be made within the same method. Performed By: #### 2 1198-7 #### SHAUNA ROBISON ([id number]) [facility] ([facility]) [facility] [place] [address] Lutropinon 06-24-2024 Lutropin Qn 3.1 IU/L Normal [facility] Comment on above: Result Comment: LH R eference Values Follicular Phase 1.9-12.5 IU/L Mid-Cycle 8.7-76.3 IU/L Luteal Phase 0.5-16.9 IU/L Post Menopause 5.0-55.2 IU/L Children 0- 6.0 IU/L Adult Male 18-70 years 1.5- 9.3 IU/L Adult Male >70 years 3.1-34.6 IU/L Performed By: #### 2 1198-7 #### SHAUNA ROBISON ([id number]) [facility] ([facility]) [address] [place] [address] Progesteroneon 06-24-2024 Progesterone [Mass/Vol] 0.6 ng/mL Normal [facility] Comment on above: Result Comment: Ref Values Male <0.3- 1.2 Follicular Phase <0.3- 1.4 Luteal Phase 3.3-25.6 Mid-Luteal Phase 4.4-28.0 Postmenopausal <0.3- 0.7 Females: 1st Trimester 11.2- 90.0 2nd Trimester 25.6- 89.4 3RD Trimester 48.4-422.5 Patients receiving DHEA-S supplements may show false elevation of progesterone for results near 1.0 ng/mL. Contact laboratory at [phone] if alternative testing is needed. Performed By: #### 2 1198-7 #### VILLATORO ENRIQUETA ([id number]) [facility] ([facility]) [address] [place] [address] GERRY US PELVIS LIMITED FOLLIC LES-FOLLICLE STUDIES PERFORMEDon 06-24-2024 GERRY US PELVIS LIMITED FOLLICLES-FOLLICLE STUDIES PERFORMED Interpreted By: Xiang Bowden, STUDY: US PELVIS TRANSABDOMINAL WITH TRANSVAGINAL; 06/24/2024 9:01 am INDICATION: Signs/Symptoms:FERTI LITY. ,Z31.83 Encounter for assisted reproductive fertility procedure cycle COMPARISON: None. ACCESSION NUMBER(S): [id number] ORDERING CLINICIAN: LEVON BRAXTON TECHNIQUE: Multiple multiplanar static amos scale, color and spectral waveform sonographic images of the pelvis were obtained. Transabdominal and endovaginal ultrasound was performed. FINDINGS: UTERUS: The uterus measures 5.4 cm x 3.8 cm x 9.8 cm. Normal myometrium. ENDOMETRIUM: The endometrium measures a thickness of 0.5 cm, which is normal. RIGHT ADNEXA: The right ovary measures 5.0 cm x 4.7 cm x 5.4 cm and demonstrates normal flow. Multiple variable size simple follicles and the largest measuring 2.6 cm.. LEFT ADNEXA: The left ovary measures 4.2 cm x 3.5 cm x 4.5 cm and demonstrates normal flow. Multiple variable size simple follicles in the largest measuring 2.2 cm.. CUL DE SAC: No free fluid IMPRESSION: 1. Multiple bilateral ovarian follicles with the largest measured above. MACRO: None Signed by: Xiang Bowden 06/25/2024 6:46 AM Dictation workstation: [id number] [facility] US PELVIS TRANSABDOMINAL WIT H TRANSVAGINALon 06-24-2024 US PELVIS TRANSABDOMINAL WITH TRANSVAGINAL Interpreted By: Xiang Bowden, STUDY: US PELVIS TRANSABDOMINAL WITH TRANSVAGINAL; 06/24/2024 9:01 am INDICATION: Signs/Symptoms:FERTI LITY. ,Z31.83 Encounter for assisted reproductive fertility procedure cycle COMPARISON: None. ACCESSION NUMBER(S): [id number] ORDERING CLINICIAN: LEVON BRAXTON TECHNIQUE: Multiple multiplanar static amos scale, color and spectral waveform sonographic images of the pelvis were obtained. Transabdominal and endovaginal ultrasound was performed. FINDINGS: UTERUS: The uterus measures 5.4 cm x 3.8 cm x 9.8 cm. Normal myometrium. ENDOMETRIUM: The endometrium measures a thickness of 0.5 cm, which is normal. RIGHT ADNEXA: The right ovary measures 5.0 cm x 4.7 cm x 5.4 cm and demonstrates normal flow. Multiple variable size simple follicles and the largest measuring 2.6 cm.. LEFT ADNEXA: The left ovary measures 4.2 cm x 3.5 cm x 4.5 cm and demonstrates normal flow. Multiple variable size simple follicles in the largest measuring 2.2 cm.. CUL DE SAC: No free fluid IMPRESSION: 1. Multiple bilateral ovarian follicles with the largest measured above. MACRO: None Signed by: Xiang Bowden 06/25/2024 6:46 AM Dictation workstation: [id number] [facility] Estradiolon 06-22-2024 E2 [Mass/Vol] 124 pg/mL [facility] Comment on above: Order Comment: REF V ALUES FOLLICULAR PHASE 20-144 MID CYCLE 64-357 LUTEAL PHASE 56-214 POSTMENOPAUSE < 32 PREPUBERTY < 20 FEMALE 10-18Y 8-110 MALE 10-18Y < 20 ADULT MALE < 40 Performed By: #### 2 243-4 #### DWAYNE Nair ([id number]) [facility] ([facility]) [address] [place] [address] Lutropinon 06-22-2024 Lutropin Qn 1.9 IU/L [facility] Comment on above: Result Comment: LH R eference Values Follicular Phase 1.9-12.5 IU/L Mid-Cycle 8.7-76.3 IU/L Luteal Phase 0.5-16.9 IU/L Post Menopause 5.0-55.2 IU/L Children 0- 6.0 IU/L Adult Male 18-70 years 1.5- 9.3 IU/L Adult Male >70 years 3.1-34.6 IU/L Performed By: #### 1 0501-5 #### DWAYNE Nair ([id number]) [facility] ([facility]) [address] [place] [address] Progesteroneon 06-22-2024 Progesterone [Mass/Vol] 0.4 ng/mL Normal [facility] Comment on above: Result Comment: Ref Values Male <0.3- 1.2 Follicular Phase <0.3- 1.4 Luteal Phase 3.3-25.6 Mid-Luteal Phase 4.4-28.0 Postmenopausal <0.3- 0.7 Females: 1st Trimester 11.2- 90.0 2nd Trimester 25.6- 89.4 3RD Trimester 48.4-422.5 Patients receiving DHEA-S supplements may show false elevation of progesterone for results near 1.0 ng/mL. Contact laboratory at [phone] if alternative testing is needed. Performed By: #### 2 1198-7 #### VILLATORO ENRIQUETA ([id number]) [facility] ([facility]) [address] [place] [address] GERRY US PELVIS LIMITED FOLLIC LES-FOLLICLE STUDIES PERFORMEDon 06-22-2024 GERRY US PELVIS LIMITED FOLLICLES-FOLLICLE STUDIES PERFORMED Interpreted By: Xiang Bowden, STUDY: US PELVIS TRANSABDOMINAL WITH TRANSVAGINAL; 06/22/2024 9:02 am INDICATION: Signs/Symptoms:ROMULO PABLO ,Z31.83 Encounter for assisted reproductive fertility procedure cycle COMPARISON: None. ACCESSION NUMBER(S): [id number] ORDERING CLINICIAN: LEVON BRAXTON TECHNIQUE: Multiple multiplanar static amos scale, color and spectral waveform sonographic images of the pelvis were obtained. Transabdominal and endovaginal ultrasound was performed. FINDINGS: UTERUS: The uterus measures 5.0 cm x 3.2 cm x 9.6 cm. Normal myometrium. ENDOMETRIUM: The endometrium measures a thickness of 0.6 cm, which is normal. RIGHT ADNEXA: The right ovary measures 4.1 cm x 2.9 cm x 3.9 cm and demonstrates normal flow. Multiple follicles noted in the largest measuring 1.7 cm. No gross right adnexal masses are seen, no hydrosalpinx. LEFT ADNEXA: The left ovary measures 3.8 cm x 2.4 cm x 4.7 cm and demonstrates normal flow. Multiple follicles noted in the largest measuring 1.6 cm. No gross left adnexal masses are seen, no hydrosalpinx. CUL DE SAC: No free fluid IMPRESSION: 1. Bilateral multiple ovarian follicles noted in the largest measured, in the right side 1.7 cm and on the left side 1.6 cm (other follicle size are annotated on PACS). MACRO: None Signed by: Xiang Bowden 06/23/2024 5:37 AM Dictation workstation: [id number] [facility] US PELVIS TRANSABDOMINAL WIT H TRANSVAGINALon 06-22-2024 US PELVIS TRANSABDOMINAL WITH TRANSVAGINAL Interpreted By: Xiang Bowden, STUDY: US PELVIS TRANSABDOMINAL WITH TRANSVAGINAL; 06/22/2024 9:02 am INDICATION: Signs/Symptoms:CLIFFKLEVER ZUNIGAMichaelJai ,Z31.83 Encounter for assisted reproductive fertility procedure cycle COMPARISON: None. ACCESSION NUMBER(S): [id number] ORDERING CLINICIAN: LEVON BRAXTON TECHNIQUE: Multiple multiplanar static amos scale, color and spectral waveform sonographic images of the pelvis were obtained. Transabdominal and endovaginal ultrasound was performed. FINDINGS: UTERUS: The uterus measures 5.0 cm x 3.2 cm x 9.6 cm. Normal myometrium. ENDOMETRIUM: The endometrium measures a thickness of 0.6 cm, which is normal. RIGHT ADNEXA: The right ovary measures 4.1 cm x 2.9 cm x 3.9 cm and demonstrates normal flow. Multiple follicles noted in the largest measuring 1.7 cm. No gross right adnexal masses are seen, no hydrosalpinx. LEFT ADNEXA: The left ovary measures 3.8 cm x 2.4 cm x 4.7 cm and demonstrates normal flow. Multiple follicles noted in the largest measuring 1.6 cm. No gross left adnexal masses are seen, no hydrosalpinx. CUL DE SAC: No free fluid IMPRESSION: 1. Bilateral multiple ovarian follicles noted in the largest measured, in the right side 1.7 cm and on the left side 1.6 cm (other follicle size are annotated on PACS). MACRO: None Signed by: Xiang Bowden 06/23/2024 5:37 AM Dictation workstation: [id number] Normal [facility] Estradiolon 06-19-2024 E2 [Mass/Vol] 49 pg/mL Normal [facility] Comment on above: Order Comment: REF V ALUES FOLLICULAR PHASE 20-144 MID CYCLE 64-357 LUTEAL PHASE 56-214 POSTMENOPAUSE < 32 PREPUBERTY < 20 FEMALE 10-18Y 8-110 MALE 10-18Y < 20 ADULT MALE < 40 Performed By: #### 2 243-4 #### DWAYNE Nair ([id number]) [facility] ([facility]) [address] [place], [place] [id number] Lutropinon 06-19-2024 Lutropin Qn 7.0 IU/L [facility] Comment on above: Result Comment: LH R eference Values Follicular Phase 1.9-12.5 IU/L Mid-Cycle 8.7-76.3 IU/L Luteal Phase 0.5-16.9 IU/L Post Menopause 5.0-55.2 IU/L Children 0- 6.0 IU/L Adult Male 18-70 years 1.5- 9.3 IU/L Adult Male >70 years 3.1-34.6 IU/L Performed By: #### 1 0501-5 #### DWAYNE Nair ([id number]) [facility] ([facility]) [address] [place], [place] [address] Progesteroneon 06-19-2024 Progesterone [Mass/Vol] 0.5 ng/mL Normal [facility] Comment on above: Result Comment: Ref Values Male <0.3- 1.2 Follicular Phase <0.3- 1.4 Luteal Phase 3.3-25.6 Mid-Luteal Phase 4.4-28.0 Postmenopausal <0.3- 0.7 Females: 1st Trimester 11.2- 90.0 2nd Trimester 25.6- 89.4 3RD Trimester 48.4-422.5 Patients receiving DHEA-S supplements may show false elevation of progesterone for results near 1.0 ng/mL. Contact laboratory at [phone] if alternative testing is needed. Performed By: #### 2 839-9 #### DWAYNE Nair ([id number]) [facility] ([facility]) [address] [place] [id number] GERRY US PELVIS LIMITED FOLLIC LES-FOLLICLE STUDIES PERFORMEDon 06-19-2024 GERRY US PELVIS LIMITED FOLLICLES-FOLLICLE STUDIES PERFORMED Interpreted By: Lawson Wynn, STUDY: US PELVIS TRANSABDOMINAL WITH TRANSVAGINAL; 06/19/2024 9:11 am INDICATION: Signs/Symptoms:ROMULO PABLOZ31.83 Encounter for assisted reproductive fertility procedure cycle COMPARISON: Prior exam from 06/15/2024.. ACCESSION NUMBER(S): [id number] ORDERING CLINICIAN: LEVON BRAXTON TECHNIQUE: Multiple multiplanar static amos scale, color and spectral waveform sonographic images of the pelvis were obtained. Transabdominal and endovaginal ultrasound was performed. FINDINGS: UTERUS: The uterus measures 4.7 cm x 3.2 cm x 10.3 cm . There was no focal uterine mass. ENDOMETRIUM: The endometrium measures a thickness of 0.6 cm , which is within the limits of normal for this age group. RIGHT ADNEXA: The right ovary measures 3.0 cm x 2.6 cm x 3.5 cm . There was no suspicious solid or cystic right ovarian lesion. There were multiple right ovarian follicles measuring up to 16 x 12 x 14 mm. Color Doppler and spectral Doppler showed preserved arterial and venous blood flow in the right ovary. LEFT ADNEXA: The left ovary measures 3.3 cm x 2.7 cm x 3.6 cm . There was no suspicious solid or cystic left ovarian lesion. There were multiple left ovarian follicles measuring up to 9 mm in maximal diameter. Color Doppler and spectral Doppler showed preserved arterial and venous blood flow in the left ovary. CUL DE SAC: No gross free fluid is seen in the pelvic cul-de-sac. IMPRESSION: Multiple bilateral ovarian follicles as described. MACRO: None Signed by: Lawson Wynn 06/20/2024 4:53 PM Dictation workstation: [id number] [facility] US PELVIS TRANSABDOMINAL WIT H TRANSVAGINALon 06-19-2024 US PELVIS TRANSABDOMINAL WITH TRANSVAGINAL Interpreted By: Lawson Wynn, STUDY: US PELVIS TRANSABDOMINAL WITH TRANSVAGINAL; 06/19/2024 9:11 am INDICATION: Signs/Symptoms:ROMULO PABLO Suzanne31.83 Encounter for assisted reproductive fertility procedure cycle COMPARISON: Prior exam from 06/15/2024.. ACCESSION NUMBER(S): [id number] ORDERING CLINICIAN: LEVON BRAXTON TECHNIQUE: Multiple multiplanar static amos scale, color and spectral waveform sonographic images of the pelvis were obtained. Transabdominal and endovaginal ultrasound was performed. FINDINGS: UTERUS: The uterus measures 4.7 cm x 3.2 cm x 10.3 cm . There was no focal uterine mass. ENDOMETRIUM: The endometrium measures a thickness of 0.6 cm , which is within the limits of normal for this age group. RIGHT ADNEXA: The right ovary measures 3.0 cm x 2.6 cm x 3.5 cm . There was no suspicious solid or cystic right ovarian lesion. There were multiple right ovarian follicles measuring up to 16 x 12 x 14 mm. Color Doppler and spectral Doppler showed preserved arterial and venous blood flow in the right ovary. LEFT ADNEXA: The left ovary measures 3.3 cm x 2.7 cm x 3.6 cm . There was no suspicious solid or cystic left ovarian lesion. There were multiple left ovarian follicles measuring up to 9 mm in maximal diameter. Color Doppler and spectral Doppler showed preserved arterial and venous blood flow in the left ovary. CUL DE SAC: No gross free fluid is seen in the pelvic cul-de-sac. IMPRESSION: Multiple bilateral ovarian follicles as described. MACRO: None Signed by: Lawson Wynn 06/20/2024 4:53 PM Dictation workstation: [id number] [facility] Choriogonadotropin.beta subu niton 06-15-2024 HCG.beta subunit Qn m[IU]/mL Normal <5 [facility] Comment on above: Order Comment: Total HCG measurement is performed using the [employer] Access Immunoassay which detects intact HCG and free beta HCG subunit. This test is not indicated for use as a tumor marker. HCG testing is performed using a different test methodology at [facility] than other [facility]. Direct result comparison should only be made within the same method. Performed By: #### 2 1198-7 #### VILLATORO ENRIQUETA ([id number]) [facility] ([facility]) [address] [place] [address] Estradiolon 06-15-2024 E2 [Mass/Vol] 47 pg/mL [facility] Comment on above: Order Comment: REF V ALUES FOLLICULAR PHASE 20-144 MID CYCLE 64-357 LUTEAL PHASE 56-214 POSTMENOPAUSE < 32 PREPUBERTY < 20 FEMALE 10-18Y 8-110 MALE 10-18Y < 20 ADULT MALE < 40 Performed By: #### 2 243-4 #### DWAYNE Nair ([id number]) [facility] ([facility]) [id number] [place] [address] Follitropin and Lutropin rhoades el Qnon 06-15-2024 Follitropin Qn 5.0 IU/L [facility] Comment on above: Result Comment: FSH Ref Values Follicular 2.0-12.0 IU/L Mid-Cycle 12.0-25.0 IU/L Luteal Phase 2.0-12.0 IU/L Menopause 30.0-150.0 IU/L Pre-puberty 50% Adult IU/L Adult Male 2.0-10.0 IU/L Infants 0.0-1.0 IU/L Performed By: #### 3 4549-6 #### DWAYNE Nair ([id number]) [facility] ([facility]) [id number] [place] [address] Lutropin Qn 2.9 IU/L [facility] Comment on above: Result Comment: LH R eference Values Follicular Phase 1.9-12.5 IU/L Mid-Cycle 8.7-76.3 IU/L Luteal Phase 0.5-16.9 IU/L Post Menopause 5.0-55.2 IU/L Children 0- 6.0 IU/L Adult Male 18-70 years 1.5- 9.3 IU/L Adult Male >70 years 3.1-34.6 IU/L Performed By: #### 3 4549-6 #### DWAYNE Nair ([id number]) [facility] ([facility]) [id number] [place] [address] Progesteroneon 06-15-2024 Progesterone [Mass/Vol] 0.5 ng/mL Normal [facility] Comment on above: Result Comment: Ref Values Male <0.3- 1.2 Follicular Phase <0.3- 1.4 Luteal Phase 3.3-25.6 Mid-Luteal Phase 4.4-28.0 Postmenopausal <0.3- 0.7 Females: 1st Trimester 11.2- 90.0 2nd Trimester 25.6- 89.4 3RD Trimester 48.4-422.5 Patients receiving DHEA-S supplements may show false elevation of progesterone for results near 1.0 ng/mL. Contact laboratory at [phone] if alternative testing is needed. Performed By: #### 2 839-9 #### DWAYNE Nair ([id number]) [facility] ([facility]) [id number] [place] [address] Thyrotropinon 06-15-2024 TSH Qn 2.68 m[IU]/L Normal 0.44-3.98 [facility] Comment on above: Order Comment: TSH t esting is performed using different testing methodology at [facility] than at other [facility]. Direct result comparisons should only be made within the same method. Performed By: #### 3 016-3 #### VILLATORO ENRIQUETA ([id number]) [facility] ([facility]) [address] [place] [address] US PELVIS TRANSABDOMINAL WIT H TRANSVAGINALon 06-15-2024 US PELVIS TRANSABDOMINAL WITH TRANSVAGINAL Interpreted By: Dyllan De Jesus, STUDY: US PELVIS TRANSABDOMINAL WITH TRANSVAGINAL; ; 06/15/2024 8:31 am INDICATION: Signs/Symptoms:Ferti lity. COMPARISON: None. ACCESSION NUMBER(S): [id number] ORDERING CLINICIAN: LEVON BRAXTON TECHNIQUE: Multiple multiplanar static amos scale, color and spectral waveform sonographic images of the pelvis were obtained. Transabdominal and endovaginal ultrasound was performed. FINDINGS: UTERUS: The uterus is grossly unremarkable in appearance. The uterus measures at 10.1 cm in length and 3.2 x 5.6 cm in AP and transverse diameters. ENDOMETRIUM: The endometrium measures a thickness of 2 mm, which is normal. A tiny hypoechoic focus is seen within the endometrium, measuring up to 4 mm, of uncertain etiology. RIGHT ADNEXA: The right ovary measures at 3.7 x 1.9 x 3.2 cm. A single follicle is seen within the right ovary, measuring at up to 0.9 x 0.7 x 0.9 cm in diameter. Normal-appearing color Doppler flow is seen in the right ovary. No right adnexal mass is identified. LEFT ADNEXA: The left ovary measures at 3.4 x 2.6 x 3.0 cm. No follicles are seen within the left ovary. Normal-appearing color Doppler flow is seen in the left ovary. No left adnexal masses identified. CUL DE SAC: No free fluid is identified. IMPRESSION: 1. Single follicle within the right ovary, as above. 2. Tiny hypoechoic focus in the endometrium, of uncertain etiology. MACRO: None Signed by: Dyllan De Jesus 06/15/2024 12:12 PM Dictation workstation: [id number] [facility] US Pelvis transvaginalon 1. Single follicle within the right ovary, as above. 2. Tiny hypoechoic focus in the endometrium, of uncertain etiology. MACRO: None Signed by: Dyllan De Jesus 06/15/2024 12:12 PM Dictation workstation: [id number] [facility] Interpreted By: Dyllan De Jesus, STUDY: US PELVIS TRANSABDOMINAL WITH TRANSVAGINAL; ; 06/15/2024 8:31 am INDICATION: Signs/Symptoms:Ferti lity. COMPARISON: None. ACCESSION NUMBER(S): [id number] ORDERING CLINICIAN: LEVON BRAXTON TECHNIQUE: Multiple multiplanar static amos scale, color and spectral waveform sonographic images of the pelvis were obtained. Transabdominal and endovaginal ultrasound was performed. FINDINGS: UTERUS: The uterus is grossly unremarkable in appearance. The uterus measures at 10.1 cm in length and 3.2 x 5.6 cm in AP and transverse diameters. ENDOMETRIUM: The endometrium measures a thickness of 2 mm, which is normal. A tiny hypoechoic focus is seen within the endometrium, measuring up to 4 mm, of uncertain etiology. RIGHT ADNEXA: The right ovary measures at 3.7 x 1.9 x 3.2 cm. A single follicle is seen within the right ovary, measuring at up to 0.9 x 0.7 x 0.9 cm in diameter. Normal-appearing color Doppler flow is seen in the right ovary. No right adnexal mass is identified. LEFT ADNEXA: The left ovary measures at 3.4 x 2.6 x 3.0 cm. No follicles are seen within the left ovary. Normal-appearing color Doppler flow is seen in the left ovary. No left adnexal masses identified. CUL DE SAC: No free fluid is identified. [facility] Dyllan De Jesus MD - 06/15/2024 Interpreted By: Dyllan De Jeuss, STUDY: US PELVIS TRANSABDOMINAL WITH TRANSVAGINAL; ; 06/15/2024 8:31 am INDICATION: Signs/Symptoms:Ferti lity. COMPARISON: None. ACCESSION NUMBER(S): [id number] ORDERING CLINICIAN: LEVON BRAXTON TECHNIQUE: Multiple multiplanar static amos scale, color and spectral waveform sonographic images of the pelvis were obtained. Transabdominal and endovaginal ultrasound was performed. FINDINGS: UTERUS: The uterus is grossly unremarkable in appearance. The uterus measures at 10.1 cm in length and 3.2 x 5.6 cm in AP and transverse diameters. ENDOMETRIUM: The endometrium measures a thickness of 2 mm, which is normal. A tiny hypoechoic focus is seen within the endometrium, measuring up to 4 mm, of uncertain etiology. RIGHT ADNEXA: The right ovary measures at 3.7 x 1.9 x 3.2 cm. A single follicle is seen within the right ovary, measuring at up to 0.9 x 0.7 x 0.9 cm in diameter. Normal-appearing color Doppler flow is seen in the right ovary. No right adnexal mass is identified. LEFT ADNEXA: The left ovary measures at 3.4 x 2.6 x 3.0 cm. No follicles are seen within the left ovary. Normal-appearing color Doppler flow is seen in the left ovary. No left adnexal masses identified. CUL DE SAC: No free fluid is identified. IMPRESSION: 1. Single follicle within the right ovary, as above. 2. Tiny hypoechoic focus in the endometrium, of uncertain etiology. MACRO: None Signed by: Dyllan De Jesus 06/15/2024 12:12 PM Dictation workstation: [id number] [facility] Work Phone: Radiology Study observation (narrative) [facility] Work Phone: US Pelvis transvaginalOrdere d By: Dyllan De Jesus on 06-15-2024 [facility] Work Phone: Antimullerian Hormone, Serum on 06-02-2024 [facility]H, SERUM 3.66 ng/mL Normal . [facility] Comment on above: Result Comment: For assays employing antibodies, the possibility exists for interference by heterophile antibodies in the samples.1 1.Adele Messina Interferences in Immunoassays - still a threat. Clin. Chem. 2000; 46: 4318-6699. This test was developed and its performance characteristics determined by [employer]. It has not been cleared or approved by the Food and Drug Administration. Reference Range: Females 31 - 35y: 0.66 - 8.75 Median 3.00 AMH concentrations of >= 1.06 ng/mL is correlated with a better response to ovarian stimulation, produced more retrievable oocytes and higher odds of live according to Thanh et al. Fertility and Sterility. 2010: 94:7764-7070. The current AMH test method correlates with the study method with a slope of 0.94. Females at risk of ovarian hyperstimulation syndrome or polycystic ovarian syndrome (PCOS) may exhibit elevated serum AMH concentrations. AMH levels from PCOS patients may be 2 to 5 fold higher than age-appropriate reference interval values. Granulosa cell tumors of the ovary may secrete AMH along with other tumor markers. Elevated AMH is not specific for malignancy, and the assay should not be used exclusively to diagnose or exclude an AMH-secreting ovarian tumor. Performed By: #### B TS, L3890.6100, L501.9520, L3890.6005, L3890.6300, L506.0400, L509.4005, L509.8000, L3410.9999, L501.9985, L100.0100 #### [facility] [address] [place], [address] PROLACTIN 4465on 06-02-2024 PROLACTIN 7.8 ng/mL Normal 4.8-33.4 [facility] Comment on above: Performed By: #### B TS, L3890.6100, L501.9520, L3890.6005, L3890.6300, L506.0400, L509.4005, L509.8000, L3410.9999, L501.9985, L100.0100 #### [facility] [address] [place], [place], [id number] V-Zoster IgG (Immunity)on V ZOSTER IgG 1347 index Normal Immune >165 [facility] Comment on above: Result Comment: Nega tive <135 Equivocal 135 - 165 Positive >165 A positive result generally indicates exposure to the pathogen or administration of specific immunoglobulins, but it is not indication of active infection or stage of disease. Performed at: [facility] [address] [place] [id number] Second Miller: oKlton Workman MD, Phone: [phone] Performed at: [facility] [address] [id number] Second Miller: Huan Kuhn PhD, Phone: [phone] Performed By: #### B TS, L3890.6100, L501.9520, L3890.6005, L3890.6300, L506.0400, L509.4005, L509.8000, L3410.9999, L501.9985, L100.0100 #### [facility] [address] [place], [place], [id number] HCG BETA-SUBUNIT QUANT.on HCG B-SUBUNIT < 1 Normal . [facility] Comment on above: Order Comment: N Result Comment: Fema le (Non-) 0 - 5 (Postmenopausal) 0 - 8 Female () Weeks of Gestation 3 6 - 71 4 10 - 750 5 977 - 2665 6 556 - 49449 7 1071 -001457 8 75677 -944005 9 80730 -558533 10 28818 -146157 12 80258 -613303 14 12288 - 59216 15 97552 - 47520 16 4017 - 49557 17 0146 - 72785 18 6652 - 35474 Oswaldo ECLIA methodology Performed By: #### B TS, L3890.6100, L501.9520, L3890.6005, L3890.6300, L506.0400, L509.4005, L509.8000, L3410.9999, L501.9985, L100.0100 #### [facility] [address] [place], [address] PROGESTERONE 4317on 05-28-20 24 PROGESTERONE 0.2 ng/mL Normal . [facility] Comment on above: Order Comment: N Result Comment: Foll icular phase 0.1 - 0.9 Luteal phase 1.8 - 23.9 Ovulation phase 0.1 - 12.0 First trimester 11.0 - 44.3 Second trimester 25.4 - 83.3 Third trimester 58.7 - 214.0 Postmenopausal 0.0 - 0.1 Performed at: [facility] [address] [id number] Second Miller: Huan Kuhn PhD, Phone: [phone] Performed By: #### B TS, L3890.6100, L501.9520, L3890.6005, L3890.6300, L506.0400, L509.4005, L509.8000, L3410.9999, L501.9985, L100.0100 #### [facility] [address] [place], [place], [address] [id number] 05-27-2024 ABO and Rh group Nom (Bld) Blood group B Rh(D) negative Normal [facility] Comment on above: Performed By: #### B TS, L3890.6100, L501.9520, L3890.6005, L3890.6300, L506.0400, L509.4005, L509.8000, L3410.9999, L501.9985, L100.0100 #### [facility] [address] [place], [address] CBC W/Diff, Automatedon 08-2 Absolute Lymph 2.52 X10 3/uL Normal 0.83-4.51 [facility] Comment on above: Performed By: #### B TS, L3890.6100, L501.9520, L3890.6005, L3890.6300, L506.0400, L509.4005, L509.8000, L3410.9999, L501.9985, L100.0100 #### [facility] [address] [place], [address] Absolute Neut 6.0 X10 3/uL Normal 2.0-7.7 [facility] Comment on above: Performed By: #### B TS, L3890.6100, L501.9520, L3890.6005, L3890.6300, L506.0400, L509.4005, L509.8000, L3410.9999, L501.9985, L100.0100 #### [facility] [address] [place], [place], [phone] (511) Basophils/100 WBC (Bld) 0.7 % Normal 0-1 [facility] Comment on above: Performed By: #### B TS, L3890.6100, L501.9520, L3890.6005, L3890.6300, L506.0400, L509.4005, L509.8000, L3410.9999, L501.9985, L100.0100 #### [facility] [address] [place], [place], [phone] (336) Eosinophils/100 WBC (Bld) 2.2 % Normal 0-5 [facility] Comment on above: Performed By: #### B TS, L3890.6100, L501.9520, L3890.6005, L3890.6300, L506.0400, L509.4005, L509.8000, L3410.9999, L501.9985, L100.0100 #### [facility] [address] [place], [address] Erythrocyte distribution width (RBC) [Ratio] 12.6 % Normal 11.6-14.6 [facility] Comment on above: Performed By: #### B TS, L3890.6100, L501.9520, L3890.6005, L3890.6300, L506.0400, L509.4005, L509.8000, L3410.9999, L501.9985, L100.0100 #### [facility] [address] [place], [address] ( Hematocrit (Bld) [Volume fraction] 45.4 % Normal 37-47 [facility] Comment on above: Performed By: #### B TS, L3890.6100, L501.9520, L3890.6005, L3890.6300, L506.0400, L509.4005, L509.8000, L3410.9999, L501.9985, L100.0100 #### [facility] [address] [place], [address] (734) Hemoglobin (Bld) [Mass/Vol] 14.7 g/dL Normal 12.0-15.0 [facility] Comment on above: Performed By: #### B TS, L3890.6100, L501.9520, L3890.6005, L3890.6300, L506.0400, L509.4005, L509.8000, L3410.9999, L501.9985, L100.0100 #### [facility] [address] [place], [address] (492) IG% 0.900 Normal 0.0-0.9 [facility] Comment on above: Result Comment: IG% - Immature Granulocytes (promyelocytes, myelocytes and metamyelocytes) > 1% indicates that a LEFT SHIFT is Present. Performed By: #### B TS, L3890.6100, L501.9520, L3890.6005, L3890.6300, L506.0400, L509.4005, L509.8000, L3410.9999, L501.9985, L100.0100 #### [facility] [address] [place], [address] Lymphocytes/100 WBC (Bld) 26.9 % Normal 19-41 [facility] Comment on above: Performed By: #### B TS, L3890.6100, L501.9520, L3890.6005, L3890.6300, L506.0400, L509.4005, L509.8000, L3410.9999, L501.9985, L100.0100 #### [facility] [address] [place], [address] MCH (RBC) [Entitic mass] 27.8 pg Normal 27.0-32.0 [facility] Comment on above: Performed By: #### B TS, L3890.6100, L501.9520, L3890.6005, L3890.6300, L506.0400, L509.4005, L509.8000, L3410.9999, L501.9985, L100.0100 #### [facility] [address] [place], [address] MCHC (RBC) [Mass/Vol] 32.4 g/dL Normal 32-36 [facility] Comment on above: Performed By: #### B TS, L3890.6100, L501.9520, L3890.6005, L3890.6300, L506.0400, L509.4005, L509.8000, L3410.9999, L501.9985, L100.0100 #### [facility] [address] [place], [address] MCV (RBC) [Entitic vol] 85.8 fL Normal 81-99 [facility] Comment on above: Performed By: #### B TS, L3890.6100, L501.9520, L3890.6005, L3890.6300, L506.0400, L509.4005, L509.8000, L3410.9999, L501.9985, L100.0100 #### [facility] [address] [facility] [place], [address] Monocytes/100 WBC (Bld) 5.4 % Normal 0-10 [facility] Comment on above: Performed By: #### B TS, L3890.6100, L501.9520, L3890.6005, L3890.6300, L506.0400, L509.4005, L509.8000, L3410.9999, L501.9985, L100.0100 #### [facility] [address] [facility] [place], [address] Neutrophils/100 WBC (Bld) 63.9 % Normal 47-70 [facility] Comment on above: Performed By: #### B TS, L3890.6100, L501.9520, L3890.6005, L3890.6300, L506.0400, L509.4005, L509.8000, L3410.9999, L501.9985, L100.0100 #### [facility] [address] [facility] [place], [address] Nucleated RBC (Bld) [#/Vol] 0 10*3/uL Normal 0-5 [facility] Comment on above: Performed By: #### B TS, L3890.6100, L501.9520, L3890.6005, L3890.6300, L506.0400, L509.4005, L509.8000, L3410.9999, L501.9985, L100.0100 #### [facility] [address] [facility] [place], [address] Platelet mean volume (Bld) [Entitic vol] 8.7 fL Normal 6.2-12.0 [facility] Comment on above: Performed By: #### B TS, L3890.6100, L501.9520, L3890.6005, L3890.6300, L506.0400, L509.4005, L509.8000, L3410.9999, L501.9985, L100.0100 #### [facility] [address] [place], [address] Platelets (Bld) [#/Vol] 348 10*3/uL Normal 150-450 [facility] Comment on above: Performed By: #### B TS, L3890.6100, L501.9520, L3890.6005, L3890.6300, L506.0400, L509.4005, L509.8000, L3410.9999, L501.9985, L100.0100 #### [facility] [address] [place], [address] RBC (Bld) [#/Vol] 5.29 10*6/uL Normal 4.2-5.4 [facility] Comment on above: Performed By: #### B TS, L3890.6100, L501.9520, L3890.6005, L3890.6300, L506.0400, L509.4005, L509.8000, L3410.9999, L501.9985, L100.0100 #### [facility] [address] [place], [address] RDW SD 39.6 fl Normal 35.1-43.9 [facility] Comment on above: Performed By: #### B TS, L3890.6100, L501.9520, L3890.6005, L3890.6300, L506.0400, L509.4005, L509.8000, L3410.9999, L501.9985, L100.0100 #### [facility] [address] [place], [address] WBC (Bld) [#/Vol] 9.4 10*3/uL Normal 4.4-11.0 [facility] Comment on above: Performed By: #### B TS, L3890.6100, L501.9520, L3890.6005, L3890.6300, L506.0400, L509.4005, L509.8000, L3410.9999, L501.9985, L100.0100 #### [facility] [address] [place], [place], [phone] Comprehensive Metabolic [facility] 05-27-2024 Albumin [Mass/Vol] 3.8 g/dL Normal 3.2-5.0 [facility] Comment on above: Performed By: #### B TS, L3890.6100, L501.9520, L3890.6005, L3890.6300, L506.0400, L509.4005, L509.8000, L3410.9999, L501.9985, L100.0100 #### [facility] [address] [place], [place], [phone] Albumin/Globulin [Mass ratio] 1.0 {ratio} Normal 0.9-2.4 [facility] Comment on above: Performed By: #### B TS, L3890.6100, L501.9520, L3890.6005, L3890.6300, L506.0400, L509.4005, L509.8000, L3410.9999, L501.9985, L100.0100 #### [facility] [address] [place], [place], [id number] ALK P 86 U/L Normal 45-117 [facility] Comment on above: Performed By: #### B TS, L3890.6100, L501.9520, L3890.6005, L3890.6300, L506.0400, L509.4005, L509.8000, L3410.9999, L501.9985, L100.0100 #### [facility] [address] [place], [place], [id number] ALT [Catalytic activity/Vol] 59 U/L High 13-56 [facility] Comment on above: Performed By: #### B TS, L3890.6100, L501.9520, L3890.6005, L3890.6300, L506.0400, L509.4005, L509.8000, L3410.9999, L501.9985, L100.0100 #### [facility] [address] [place], [place], [id number] AST [Catalytic activity/Vol] 40 U/L High 15-37 [facility] Comment on above: Performed By: #### B TS, L3890.6100, L501.9520, L3890.6005, L3890.6300, L506.0400, L509.4005, L509.8000, L3410.9999, L501.9985, L100.0100 #### [facility] [address] [place], [place], [id number] Bilirubin [Mass/Vol] 0.50 mg/dL Normal 0.20-1.00 [facility] Comment on above: Result Comment: For patients on eltrombopag therapy, use of Dimension [place] TBIL is not recommended. Performed By: #### B TS, L3890.6100, L501.9520, L3890.6005, L3890.6300, L506.0400, L509.4005, L509.8000, L3410.9999, L501.9985, L100.0100 #### [facility] [address] [place], [place], [phone] (988) BUN/CRE 11.7 RATIO Normal 10-20 [facility] Comment on above: Performed By: #### B TS, L3890.6100, L501.9520, L3890.6005, L3890.6300, L506.0400, L509.4005, L509.8000, L3410.9999, L501.9985, L100.0100 #### [facility] [address] [place], [address] CA,Total 9.1 mg/dL Normal 8.5-10.1 [facility] Comment on above: Performed By: #### B TS, L3890.6100, L501.9520, L3890.6005, L3890.6300, L506.0400, L509.4005, L509.8000, L3410.9999, L501.9985, L100.0100 #### [facility] [address] [place], [address] Chloride [Moles/Vol] 107 mmol/L Normal 98-107 [facility] Comment on above: Performed By: #### B TS, L3890.6100, L501.9520, L3890.6005, L3890.6300, L506.0400, L509.4005, L509.8000, L3410.9999, L501.9985, L100.0100 #### [facility] [address] [place], [address] CO2 [Moles/Vol] 24.0 mmol/L Normal 21.0-32.0 [facility] Comment on above: Performed By: #### B TS, L3890.6100, L501.9520, L3890.6005, L3890.6300, L506.0400, L509.4005, L509.8000, L3410.9999, L501.9985, L100.0100 #### [facility] [address] [place], [address] Creatinine [Mass/Vol] 0.68 mg/dL Normal 0.55-1.02 [facility] Comment on above: Result Comment: The validity of the calculated GFR GFRAA in patients over 70 years has not been determined. Clinical correlation is essential. Performed By: #### B TS, L3890.6100, L501.9520, L3890.6005, L3890.6300, L506.0400, L509.4005, L509.8000, L3410.9999, L501.9985, L100.0100 #### [facility] [address] [place], [address] EST GFR - AA 126 mL/min Normal >60 [facility] Comment on above: Result Comment: Afri can Honduran GFR Calc Performed By: #### B TS, L3890.6100, L501.9520, L3890.6005, L3890.6300, L506.0400, L509.4005, L509.8000, L3410.9999, L501.9985, L100.0100 #### [facility] [address] [place], [place], [id number] GAP 7 Normal 5-15 [facility] Comment on above: Performed By: #### B TS, L3890.6100, L501.9520, L3890.6005, L3890.6300, L506.0400, L509.4005, L509.8000, L3410.9999, L501.9985, L100.0100 #### [facility] [address] [place], [place], [id number] GFR/1.73 sq M.predicted among non-blacks MDRD (S/P/Bld) [Vol rate/Area] 104 mL/min/{1.73_m2} Normal >60 [facility] Comment on above: Result Comment: Non- GFR Calc Performed By: #### B TS, L3890.6100, L501.9520, L3890.6005, L3890.6300, L506.0400, L509.4005, L509.8000, L3410.9999, L501.9985, L100.0100 #### [facility] [address] [place], [address] Globulin (S) [Mass/Vol] 4.0 g/dL Normal 2.2-4.2 [facility] Comment on above: Performed By: #### B TS, L3890.6100, L501.9520, L3890.6005, L3890.6300, L506.0400, L509.4005, L509.8000, L3410.9999, L501.9985, L100.0100 #### [facility] [address] [place], [address] Glucose [Mass/Vol] 98 mg/dL Normal 74-106 [facility] Comment on above: Performed By: #### B TS, L3890.6100, L501.9520, L3890.6005, L3890.6300, L506.0400, L509.4005, L509.8000, L3410.9999, L501.9985, L100.0100 #### [facility] [address] [place], [address] Potassium [Moles/Vol] 3.9 mmol/L Normal 3.5-5.1 [facility] Comment on above: Performed By: #### B TS, L3890.6100, L501.9520, L3890.6005, L3890.6300, L506.0400, L509.4005, L509.8000, L3410.9999, L501.9985, L100.0100 #### [facility] [address] [place], [address] Sodium [Moles/Vol] 138 mmol/L Normal 136-145 [facility] Comment on above: Performed By: #### B TS, L3890.6100, L501.9520, L3890.6005, L3890.6300, L506.0400, L509.4005, L509.8000, L3410.9999, L501.9985, L100.0100 #### [facility] [address] [place], [address] T PROT 7.8 g/dL Normal 6.4-8.2 [facility] Comment on above: Performed By: #### B TS, L3890.6100, L501.9520, L3890.6005, L3890.6300, L506.0400, L509.4005, L509.8000, L3410.9999, L501.9985, L100.0100 #### [facility] [address] [place], [place], [id number] Urea nitrogen [Mass/Vol] 8 mg/dL Normal 7-18 [facility] Comment on above: Performed By: #### B TS, L3890.6100, L501.9520, L3890.6005, L3890.6300, L506.0400, L509.4005, L509.8000, L3410.9999, L501.9985, L100.0100 #### [facility] [address] [place], [place], [id number] Estradiolon 05-27-2024 ESTRADIOL 133.9 pg/mL Normal [facility] Comment on above: Result Comment: NORM AL REFERENCE RANGES FEMALE FOLLICULAR 21.4 - 164.8 pg/mL MID-CYCLE PEAK 49.9 - 367.2 pg/mL LUTEAL 40.2 - 259.0 pg/mL POST-MENOPAUSAL ON MHT <11.0 - 462.1 pg/mL NOT ON MHT <11.0 - 58.3 pg/mL MALE <11.0 - 52.5 pg/mL NOTE: [employer] HAS CONFIRMED THE DRUG FULVETRANT (FASLODEX) MAY CAUSE FALSELY ELEVATED ESTRADIOL RESULTS WHEN USING THIS TEST METHOD. IF PATIENT IS TAKING FULVESTRANT AN ALTERNATIVE METHOD SHOULD BE USED TO DETERMINE ESTRADIOL CONCENTRATION. Performed By: #### B TS, L3890.6100, L501.9520, L3890.6005, L3890.6300, L506.0400, L509.4005, L509.8000, L3410.9999, L501.9985, L100.0100 #### [facility] [address] [facility] [place], [place], [id number] Follicle Stimulating Hormone on 05-27-2024 FSH 5.8 mIU/mL Normal [facility] Comment on above: Result Comment: NORMAL REFERENCE RANGES FEMALE FOLLICULAR 2.3 - 12.6 mIU/mL MID-CYCLE PEAK 5.2 - 17.5 mIU/mL LUTEAL 1.7 - 12.9 mIU/mL POST-MENOPAUSAL ON MHT 5.9 - 72.8 mIU/mL NOT ON MHT 12.7 - 132.2 mlU/mL MALE 0.7 - 10.8 mIU/mL Performed By: #### B TS, L3890.6100, L501.9520, L3890.6005, L3890.6300, L506.0400, L509.4005, L509.8000, L3410.9999, L501.9985, L100.0100 #### [facility] [address] [facility] [place], [place], [id number] HIV - WCHon 05-27-2024 HIV Non-Reactive Normal Nonreactive [facility] Comment on above: Performed By: #### B TS, L3890.6100, L501.9520, L3890.6005, L3890.6300, L506.0400, L509.4005, L509.8000, L3410.9999, L501.9985, L100.0100 #### [facility] [address] [facility] [place], [place], [id number] Hemoglobin A1con 05-27-2024 HbA1c (Bld) [Mass fraction] 5.4 % Normal 3.8-5.6 [facility] Comment on above: Result Comment: Norm al < 5.7 % Prediabetic 5.7 - 6.4 % Diabetic >or= 6.5 % Please note range changes. Performed By: #### B TS, L3890.6100, L501.9520, L3890.6005, L3890.6300, L506.0400, L509.4005, L509.8000, L3410.9999, L501.9985, L100.0100 #### [facility] [address] [facility] [place], [address] Hepatitis B Surface Antigeno n 05-27-2024 HEP B Surf Ag Non-Reactive Normal Nonreactive [facility] Comment on above: Performed By: #### B TS, L3890.6100, L501.9520, L3890.6005, L3890.6300, L506.0400, L509.4005, L509.8000, L3410.9999, L501.9985, L100.0100 #### [facility] [address] [facility] [place], [address] Hepatitis C Antibodyon 05-27 Hepatitis C AB Non-Reactive Normal Nonreactive [facility] Comment on above: Result Comment: Non Reactive: < 0.8 Equivocal: >/= 0.8 to < 1.0 Reactive: >/= 1.0 The CDC requires that a reactive/equivocal HCV antibody result be sent out for confirmation. HCV Quant by PCR testing. Performed By: #### B TS, L3890.6100, L501.9520, L3890.6005, L3890.6300, L506.0400, L509.4005, L509.8000, L3410.9999, L501.9985, L100.0100 #### [facility] [address] [facility] [place], [address] L509.8000on 05-27-2024 Syphilis Abs Non-Reactive Normal [facility] Comment on above: Performed By: #### B TS, L3890.6100, L501.9520, L3890.6005, L3890.6300, L506.0400, L509.4005, L509.8000, L3410.9999, L501.9985, L100.0100 #### [facility] [address] [facility] [place], [place], [id number] Luteinizing Hormoneon 2023 LH 17.0 mIU/mL Normal [facility] Comment on above: Result Comment: NORMAL REFERENCE RANGES FEMALE FOLLICULAR 1.9 - 26.2 mIU/mL MID-CYCLE PEAK 22.8 - 76.1 mIU/mL LUTEAL 0.6 - 16.6 mIU/mL POST-MENOPAUSAL ON MHT 1.1 - 52.4 mIU/mL NOT ON MHT 8.6 - 61.8 mIU/mL MALE 1.2 - 10.6 mIU/mL Performed By: #### B TS, L3890.6100, L501.9520, L3890.6005, L3890.6300, L506.0400, L509.4005, L509.8000, L3410.9999, L501.9985, L100.0100 #### [facility] [address] [place], [place], [id number] Rubella IgGon 05-27-2024 Rubella IgG Reactive Normal Nonreactive [facility] Comment on above: Result Comment: Anti body Results Interpretation of Immune Status Non Reactive Presumed Non-Immune Equivocal Equivocal Reactive Presumed Immune Performed By: #### B TS, L3890.6100, L501.9520, L3890.6005, L3890.6300, L506.0400, L509.4005, L509.8000, L3410.9999, L501.9985, L100.0100 #### [facility] [address] [place], [place], [id number] Testosterone, Serum Totalon 05-27-2024 Testosterone [Mass/Vol] 44.25 ng/dL Normal [facility] Comment on above: Result Comment: CENT RAL 90% REFERENCE RANGES MALE AGE <50 197.44 - 669.58 ng/dL MALE AGE > or = 50 187.72 - 684.19 ng/dL FEMALE AGE <50 8.38 - 35.01 ng/dL FEMALE AGE > or = 50 <7.00 - 35.92 ng/dL Effective as of 7/27/21 Performed By: #### B TS, L3890.6100, L501.9520, L3890.6005, L3890.6300, L506.0400, L509.4005, L509.8000, L3410.9999, L501.9985, L100.0100 #### [facility] [address] [place], [address] Thyroid Stim Hormone (TSH)on 05-27-2024 TSH 1.510 uIU/mL Normal 0.358-3.740 [facility] Comment on above: Performed By: #### B TS, L3890.6100, L501.9520, L3890.6005, L3890.6300, L506.0400, L509.4005, L509.8000, L3410.9999, L501.9985, L100.0100 #### [facility] [address] [place], [address] Vitamin D,25 Hydroxyon 05-27 Vitamin D 25-OH 29.8 ng/mL Normal [facility] Comment on above: Result Comment: Tara min D 25(OH) Status Range Deficiency <20 ng/mL (50nmol/L) Insufficiency 20 - 30 ng/mL (50 - 75 nmol/L) Sufficiency 30 - 100 ng/mL (75 - 250 nmol/L) Toxicity >100 ng/mL (>250 nmol/L) Performed By: #### B TS, L3890.6100, L501.9520, L3890.6005, L3890.6300, L506.0400, L509.4005, L509.8000, L3410.9999, L501.9985, L100.0100 #### [facility] [address] [place], [id number] CNOVon 01-12-2024 CNOV Office Visit ([facility]) BARBY CABALLERO ([id number]) 1990 F Date Time Provider Department 01/12/24 10:30 AM [facility] During your visit today, we recorded the following information about you: Temperature Pulse Respiration Blood pressure 97.9 degrees 134/minute 20/minute 118/78 Weight 120.3 kg Gina Sahu, [email or web address] 01/12/2024 11:22 AM Signed CC: Patient presents with: Cough: Fevers x4 days HPI: Barby Caballero is a 33 year old female who presents to the office with complaint of cough, nonproductive and fever for a few days. Symptoms are worsening Associated symptoms includes nasal congestion and facial pain/pressure. Denies fever, nausea, vomiting , and diarrhea. Treatments tried include nothing so far. with no relief of symptoms. Sick contacts: unknown. History of asthma, frequent episodes of bronchitis, chronic bronchitis, bronchiectasis or COPD: No Smoker: No Seasonal/environment al allergies: No The ROS is otherwise negative. The patient's pmh, medications, allergies, and past visits are reviewed. PHYSICAL EXAM: BP 118/78 Pulse (!) 134 Temp 36.6 ?C (97.9 ?F) Resp 20 Wt 120.3 kg (265 lb 3.4 oz) LMP 04/01/2013 SpO2 100% General appearance: alert, cooperative, pleasant, in no acute distress Head: Normocephalic Eyes: EOM's intact, conjunctiva pink and moist, no icterus, sclera white, non-injected Ears: Right ear: External ear/canal- Normal, TM - erythematous, bulging. Left ear: External ear/canal- Normal, TM - clear with good landmarks Oropharynx:moist without lesions, No erythema, exudates or tonsillar hypertrophy. Heart: Negative. RRR without obvious murmur, gallop, or rubs. No ectopy. Lungs: clear to auscultation, without rales or wheeze, good air exchange PAST MEDICAL HISTORY Diagnosis Date NEGATIVE MEDICAL HISTORY PAST SURGICAL HISTORY Procedure Laterality Date EXTRACTION, ERUPTED TOOTH OR EXPOSED ROOT (ELEVATION AND/OR FORCEPS REMOVAL) 07/2010 ALLERGIES Patient has no active allergies. MEDICATIONS escitalopram oxalate (LEXAPRO) 10 mg tablet Take 1 tablet by mouth every afternoon. famotidine (PEPCID) 40 mg tablet PLUS DHA 27 mg iron-1 mg -312 mg-250 mg cmpk TAKE 1 TAB AND 1 CAPSULE BY MOUTH EVERY DAY amoxicillin (AMOXIL) 875 mg tablet Take 1 tablet by mouth two times a day for 7 days. albuterol HFA (PROVENTIL HFA, VENTOLIN HFA) 90 mcg/actuation inhaler Inhale 2 Puffs as instructed every 6 hours as needed for wheezing/shortness of breath. Inhalational Spacing Device 1 Device one time only for 1 dose. benzonatate (TESSALON PERLES) 100 mg capsule Take 1 capsule by mouth three times a day as needed for up to 7 days. LANSOPRAZOLE ORAL Take by mouth. (Patient not taking: Reported on 01/12/2024) Desogestrel-Ethinyl Estradiol (VELIVET TRIPHASIC REGIMEN, 28,) 0.1/.125/.15-25 mg-mcg tablet Take 1 tablet by mouth once daily. (Patient not taking: Reported on 01/12/2024) FAMILY HISTORY Problem Relation Age of Onset Heart Maternal Grandfather Heart Mother Hypertension Mother Social History Tobacco Use Smoking status: Never Smokeless tobacco: Never Substance Use Topics Alcohol use: Yes Comment: occassional Drug use: No ASSESSMENT/PLAN: 1. URI, acute - ICD9: 465.9, ICD10: J06.9 (primary diagnosis) 2. Acute otitis media, right - ICD9: 382.9, ICD10: H66.91 - AMOXICILLIN 875 MG TABLET 3. Acute cough - ICD9: 786.2, ICD10: R05.1 - ALBUTEROL SULFATE HFA 90 MCG/ACTUATION AEROSOL INHALER - BENZONATATE 100 MG CAPSULE Prescription instructions reviewed with patient as applicable. Potential red flag symptoms discussed with the patient. Reviewed appropriate action plan to take if red flag symptoms occur. Patient agreeable to treatment plan. Gina Sahu APRN.[employer] Allergies As of Date: 01/12/2024 (No Active Allergies) Date Reviewed: 02/20/2012 Reviewed by: Kendra Posadas Ma - Fully Assessed Reason for Visit: Cough [28] Cmt: Fevers x4 days Primary Visit Diagnosis:URI, acute [J06.9] Other Visit Diagnoses:Acute otitis media, right [H66.91] Acute cough [R05.1] Order(s):amoxicillin (AMOXIL) 875 mg tabletTake 1 tablet by mouth two times a day for 7 days.Disp: 14 tabletRfl: 0 albuterol HFA (PROVENTIL HFA, VENTOLIN HFA) 90 mcg/actuation inhalerInhale 2 Puffs as instructed every 6 hours as needed for wheezing/shortness of breath.Disp: 1 EachRfl: 0 Inhalational Spacing Device1 Device one time only for 1 dose.Disp: 1 EachRfl: 0 benzonatate (TESSALON PERLES) 100 mg capsuleTake 1 capsule by mouth three times a day as needed for up to 7 days.Disp: 21 capsuleRfl: 0 Prescriptions as of 01/12/2024 - escitalopram oxalate (LEXAPRO) 10 mg tablet Take 1 tablet by mouth every afternoon. - famotidine (PEPCID) 40 mg tablet - PLUS DHA 27 mg iron-1 mg -312 mg-250 mg cmpk TAKE 1 TAB AND 1 CAPSULE BY MOUTH EVERY (more content not included)... Normal [facility] TSH W/FT4 REFLEXon 3 TSH 1.264 uIU/mL Normal 0.550-4.780 [facility] Comment on above: Performed By: #### T SHQR #### [facility] (DEFAULT) [address] [address] PROGESTERONEon 04-03-2023 Progesterone 15.64 ng/mL Normal [facility] Comment on above: Result Comment: This test is not recommended for patients receiving DHEA due to cross reactivity of DHEA S in the progesterone assay. Reference Range: Males: 0.28-1.22 ng/mL Females: Follicular phase 0-1.40 ng/mL Luteal phase 3.34-25.56 ng/mL Midluteal phase 4.44-28.03 ng/mL Postmenopausal 0-0.73 ng/mL Performed By: #### P DIANDRA #### [facility] (DEFAULT) [address] [address] MAMMO DIAGNOSTIC WITH ADRIANA B ILATERALon 01-09-2023 MAMMO DIAGNOSTIC WITH ADRIANA BILATERAL EXAM: MAMMO DIAGNOSTIC WITH ADRIANA BILATERAL, US BREAST LIMITED UNILATERAL RIGHT, 01/09/2023 09:20 AM (accession [id number]), 01/09/2023 09:31 AM (accession [id number]) CLINICAL INDICATIONS: The patient reports right upper outer quadrant pain and fullness. The patient discontinued breast feeding approximately 1 year ago. COMPARISON: No prior studies available for comparison. MAMMOGRAM TECHNIQUE: 2-D MLO and CC views were obtained of the bilateral breasts. 3-D MLO and CC digital tomosynthesis images were also acquired. Computer aided detection was utilized. MAMMOGRAPHIC FINDINGS: The breasts are heterogeneously dense, which may obscure small masses. No suspicious masses, calcification, or distortion is identified. ULTRASOUND TECHNIQUE: Multiple real-time amos-scale images of the area of interest in the right breast in the 9-12 o'clock axis are performed. Color Doppler was used to assess vascular flow. ULTRASOUND FINDINGS: In the area of interest in the right breast, 9:00-12:00 axis, no suspicious sonographic finding is identified. Unremarkable breast tissue is present. IMPRESSION: 1. No suspicious mammographic or sonographic findings in the right breast to explain symptoms. 2. No suspicious mammographic findings in the left breast. BI-RADS: 1: Negative Recommendation: Clinical correlation/manageme nt. Recommendation Laterality: Right [facility] MG Breast - bilateral Diagno sticon 01-09-2023 IMPRESSION: 1. No suspicious mammographic or sonographic findings in the right breast to explain symptoms. 2. No suspicious mammographic findings in the left breast. BI-RADS: 1: Negative Recommendation: Clinical correlation/manageme nt. Recommendation Laterality: Right OLOGY EXAM: MAMMO DIAGNOSTIC WITH ADRIANA BILATERAL, US BREAST LIMITED UNILATERAL RIGHT, 01/09/2023 09:20 AM (accession [id number]), 01/09/2023 09:31 AM (accession [id number]) CLINICAL INDICATIONS: The patient reports right upper outer quadrant pain and fullness. The patient discontinued breast feeding approximately 1 year ago. COMPARISON: No prior studies available for comparison. MAMMOGRAM TECHNIQUE: 2-D MLO and CC views were obtained of the bilateral breasts. 3-D MLO and CC digital tomosynthesis images were also acquired. Computer aided detection was utilized. MAMMOGRAPHIC FINDINGS: The breasts are heterogeneously dense, which may obscure small masses. No suspicious masses, calcification, or distortion is identified. ULTRASOUND TECHNIQUE: Multiple real-time amos-scale images of the area of interest in the right breast in the 9-12 o'clock axis are performed. Color Doppler was used to assess vascular flow. ULTRASOUND FINDINGS: In the area of interest in the right breast, 9:00-12:00 axis, no suspicious sonographic finding is identified. Unremarkable breast tissue is present. RADIOLOGY Nettie Trejo MD - 01/09/2023 EXAM: MAMMO DIAGNOSTIC WITH ADRIANA BILATERAL, US BREAST LIMITED UNILATERAL RIGHT, 01/09/2023 09:20 AM (accession [id number]), 01/09/2023 09:31 AM (accession [id number]) CLINICAL INDICATIONS: The patient reports right upper outer quadrant pain and fullness. The patient discontinued breast feeding approximately 1 year ago. COMPARISON: No prior studies available for comparison. MAMMOGRAM TECHNIQUE: 2-D MLO and CC views were obtained of the bilateral breasts. 3-D MLO and CC digital tomosynthesis images were also acquired. Computer aided detection was utilized. MAMMOGRAPHIC FINDINGS: The breasts are heterogeneously dense, which may obscure small masses. No suspicious masses, calcification, or distortion is identified. ULTRASOUND TECHNIQUE: Multiple real-time amos-scale images of the area of interest in the right breast in the 9-12 o'clock axis are performed. Color Doppler was used to assess vascular flow. ULTRASOUND FINDINGS: In the area of interest in the right breast, 9:00-12:00 axis, no suspicious sonographic finding is identified. Unremarkable breast tissue is present. IMPRESSION IMPRESSION: 1. No suspicious mammographic or sonographic findings in the right breast to explain symptoms. 2. No suspicious mammographic findings in the left breast. BI-RADS: 1: Negative Recommendation: Clinical correlation/manageme nt. Recommendation Laterality: Right [facility] Radiology Study observation (narrative) [facility] MG Breast - bilateral Diagno sticOrdered By: Nettie Trejo on 01-09-2023 [facility] US BREAST LIMITED UNILATERAL RIGHTon 01-09-2023 US BREAST LIMITED UNILATERAL RIGHT EXAM: MAMMO DIAGNOSTIC WITH ADRIANA BILATERAL, US BREAST LIMITED UNILATERAL RIGHT, 01/09/2023 09:20 AM (accession [id number]), 01/09/2023 09:31 AM (accession [id number]) CLINICAL INDICATIONS: The patient reports right upper outer quadrant pain and fullness. The patient discontinued breast feeding approximately 1 year ago. COMPARISON: No prior studies available for comparison. MAMMOGRAM TECHNIQUE: 2-D MLO and CC views were obtained of the bilateral breasts. 3-D MLO and CC digital tomosynthesis images were also acquired. Computer aided detection was utilized. MAMMOGRAPHIC FINDINGS: The breasts are heterogeneously dense, which may obscure small masses. No suspicious masses, calcification, or distortion is identified. ULTRASOUND TECHNIQUE: Multiple real-time amos-scale images of the area of interest in the right breast in the 9-12 o'clock axis are performed. Color Doppler was used to assess vascular flow. ULTRASOUND FINDINGS: In the area of interest in the right breast, 9:00-12:00 axis, no suspicious sonographic finding is identified. Unremarkable breast tissue is present. IMPRESSION: 1. No suspicious mammographic or sonographic findings in the right breast to explain symptoms. 2. No suspicious mammographic findings in the left breast. BI-RADS: 1: Negative Recommendation: Clinical correlation/manageme nt. Recommendation Laterality: Right Normal [facility] HEMOGLOBIN [id number] By: Sa fred Carbajal on 09-27-2022 Average glucose Estimated from glycated hemoglobin (Bld) [Mass/Vol] 105 mg/dL [facility] HbA1c (Bld) [Mass fraction] 5.3 % 4.7 - 5.6 % [facility] HEMOGLOBIN A1Con 09-27-2022 Glucose [Mass/Vol] 105 mg/dL Normal [facility] Comment on above: Performed By: #### A 1CB #### [facility] (DEFAULT) [address] [place] [address] HbA1c (Bld) [Mass fraction] 5.3 % Normal 4.7-5.6 [facility] Comment on above: Performed By: #### A 1CB #### [facility] (DEFAULT) [address] [place] [address] LIPID PANEL WITH REFLEX TO M EASURED LDLon 09-27-2022 Calculated LDL Cholesterol 51 mg/dL Normal 0-99 [facility] Comment on above: Result Comment: [<10 0 mg/dL: Optimal] [100-129 mg/dL: Near Optimal] [130-159 mg/dL: Borderline High] [160-189 mg/dL: High] [>189 mg/dL: Very High] Performed By: #### L IPDR #### [facility] (DEFAULT) [address] [place] [address] Cholesterol [Mass/Vol] 122 mg/dL Normal <200 [facility] Comment on above: Result Comment: [<20 0 mg/dL: Desirable] [200-239 mg/dL: Borderline High] [>239 mg/dL: High] Performed By: #### L IPDR #### [facility] (DEFAULT) [address] [place] [address] Cholesterol in HDL [Mass/Vol] 50 mg/dL Normal >=40 [facility] Comment on above: Result Comment: [<40 mg/dL: Low (High Risk)] [>59 mg/dL: High (Low Risk)] Performed By: #### L IPDR #### [facility] (DEFAULT) [address] [place] [address] Non HDL Cholesterol 72 mg/dL Normal <130 [facility] Comment on above: Performed By: #### L IPDR #### [facility] (DEFAULT) [address] [place] [address] Total Cholesterol/HDL Ratio 2.4 Normal <4.5 [facility] Comment on above: Performed By: #### L IPDR #### [facility] (DEFAULT) [address] [place] [address] Triglyceride [Mass/Vol] 104 mg/dL Normal <150 [facility] Comment on above: Result Comment: [<15 0 mg/dL: Desirable] [150-199 mg/dL: Borderline] [200-499 mg/dL: High] [>500 mg/dL: Very High] Performed By: #### L IPDR #### [facility] (DEFAULT) [address] [place] [address] Cholesterol [Mass/Vol] 122 mg/dL NINF - 200 mg/dL [facility] Comment on above: [<200 mg/dL: Desirab le] [200-239 mg/dL: Borderline High] [>239 mg/dL: High] Cholesterol in HDL [Mass/Vol] 50 mg/dL 40 - PINF mg/dL [facility] Comment on above: [<40 mg/dL: Low (Hig h Risk)] [>59 mg/dL: High (Low Risk)] Cholesterol in HDL [Mass/Vol] 72 mg/dL NINF - 130 mg/dL [facility] Cholesterol in LDL [Mass/Vol] 51 mg/dL 0 - 99 mg/dL [facility] Comment on above: [<100 mg/dL: Optimal ] [100-129 mg/dL: Near Optimal] [130-159 mg/dL: Borderline High] [160-189 mg/dL: High] [>189 mg/dL: Very High] Cholesterol.total/Mellissa sterol in HDL [Mass ratio] 2.4 {ratio} NINF - 4.5 [facility] Interpretation and review of laboratory results Normal [facility] Triglyceride [Mass/Vol] 104 mg/dL NINF - 150 mg/dL [facility] Comment on above: [<150 mg/dL: Desirab le] [150-199 mg/dL: Borderline] [200-499 mg/dL: High] [>500 mg/dL: Very High] [facility] PROLACTINon 09-27-2022 Prolactin [Mass/Vol] 4.4 ng/mL [facility] Comment on above: Reference Range: Females Non: 2.8-29.2 ng/mL : 9.7-208.5 ng/mL Postmenopausal: 1.8-20.3 ng/mL <2 years: 3.3-14.7 ng/mL 2-5 years: 1.0-12.8 ng/mL 6-10 years: 1.2-11.4 ng/mL 11-17 years: 1.4-14.3 ng/mL Males: 2.1-17.7 ng/mL [facility] Prolactin 4.4 ng/mL Normal [facility] Comment on above: Result Comment: Andriy perkins Range: Females Non: 2.8-29.2 ng/mL : 9.7-208.5 ng/mL Postmenopausal: 1.8-20.3 ng/mL <2 years: 3.3-14.7 ng/mL 2-5 years: 1.0-12.8 ng/mL 6-10 years: 1.2-11.4 ng/mL 11-17 years: 1.4-14.3 ng/mL Males: 2.1-17.7 ng/mL Performed By: #### P ROL, TSHQR #### [facility] (DEFAULT) [address] [place] [address] TSH W/FT4 REFLEXon 2 Interpretation and review of laboratory results Normal [facility] TSH Qn 1.680 m[IU]/L [facility] TSH 1.680 uIU/mL Normal 0.550-4.780 [facility] Comment on above: Performed By: #### P ROL, TSHQR #### [facility] (DEFAULT) [address] [place] [address] CYTOLOGY-FLAGSETTER, 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on 09-05-2022 ---Cytologic Interpretation--- Normal [facility] Comment on above: 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 Result Comment: ? Ne gative for Intraepithelial Lesion or Malignancy ? HPV Results Reported in Attached Report This Pap Test was imaged with the assistance of the [employer] ThinPrep Imaging System and screened by a Core Carrier. 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 Result Comment: Gyne cologic Cytology Report Case: [id number] Authorizing Provider: Faith Starkey MD Collected: 09/05/2022 03:07 PM Ordering Location: Obstetrics and Gynecology Received: 09/05/2022 04:39 PM [facility] Screen: Tammy Alberto Rescreen: Monika Tenorio Specimen: Cervical/Endocervical, ThinPrep, Cervical/Endocervical Performed By: #### T HINP #### [facility] (DEFAULT) [address] [address] HPV Reflex? 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 Result Comment: [facility] Im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 HPV DNA detection performed by Real-Time PCR. The assay detects HPV 16, 18, 31, 33, 35, 39, 45, 51, 52, 56, 58, 59, 66, 68.Testing performed at [facility]. 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 HPV DNA detection performed by Real-Time PCR. The assay detects HPV 16, 18, 31, 33, 35, 39, 45, 51, 52, 56, 58, 59, 66, 68.Testing performed at [facility]. 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 HPV DNA detection performed by Real-Time PCR. The assay detects HPV 16, 18, 31, 33, 35, 39, 45, 51, 52, 56, 58, 59, 66, 68.Testing performed at [facility]. Performed By: #### H PVGCO #### [facility] (DEFAULT) [address] [address] COVID-19, MOLECULARon 2020 SARS-CoV-2 (COVID-19) RNA CONCHITA+probe Ql (Unsp spec) Not detected Normal Not Detected [facility] Comment on above: Result Comment: This test was performed under the FDA's Emergency Use Authorization (EUA). Testing was performed using the Xpert?? Xpress SARS-CoV-2/Flu/RSV plus RT-PCR [employer] assay on the [employer] Xpress System. This test has not been approved for use in asymptomatic patients and its performance in this patient population has not been evaluated. Negative results do not rule out the presence of SARS-CoV-2/COVID-19. Fact sheets for this EUA can be found at the following links: For Healthcare Providers: https://www.fda.gov/media/537455/download For Patients: https://www.fda.gov/Mobilio/610051/download Performed By: #### L [id number] #### [facility] [address] [address] Xiagn Chahal M.D. [id number] CT ABDOMEN PELVIS WITH IV CO NTRAST ONLYon 09-15-2021 CT ABDOMEN PELVIS WITH IV CONTRAST ONLY EXAMINATION: CT OF THE ABDOMEN AND PELVIS WITH INTRAVENOUS CONTRAST COMPARISON: Ultrasound dated 09/15/2021. HISTORY: ORDERING SYSTEM PROVIDED HISTORY: Abdominal pain, acute, nonlocalized, Reason for exam: abd pain Encounter Type: Initial Additional signs and symptoms: The prior ultrasound demonstrated mild hydrops, no calculi, previous gallbladder polyp. TECHNIQUE: A spiral acquisition was obtained through the abdomen and pelvis following the uneventful intravenous administration of contrast. Axial, sagittal, and coronal reformatted images were displayed for review. Dose reduction techniques were achieved by using automated exposure control and/or adjustment of mA and/or kV according to patient size and/or use of iterative reconstruction technique. CONTRAST: IOPAMIDOL 76 % INTRAVENOUS SOLUTION - 75 mL, FINDINGS: ABDOMEN: The included lung bases are clear. There is mild fatty infiltration of the liver. The gallbladder is mildly hydropic. The gallbladder polyp seen on ultrasound is not seen on CT. At the inferior aspect of the gallbladder towards the fundus, however, note is made of 2 adjacent calcified gallstones measuring 4 mm each. There is an unremarkable appearance to the spleen, pancreas, adrenal glands, and kidneys. There is no evidence of aortic aneurysm or pathologically enlarged lymph nodes. PELVIS: The urinary bladder, retroflexed uterus, rectosigmoid colon, and small bowel loops are all considered unremarkable. The appendix contains air with no appendicitis. The osseous structures and surrounding soft tissue structures are otherwise unremarkable. IMPRESSION: 1. Mild fatty infiltration of the liver. 2. Two gallstones present at the dependent gallbladder at the fundus measuring 4 mm each. 3. No gallbladder wall thickening is seen to suggest acute cholecystitis. 4. No additional abnormalities of significance including no evidence for appendicitis. [employer] Workstation ID: [id number] Dictated by: DECLNA MESSER on SatSep 15, 2021 12:10:30 PM EST Transcribed by: CARLOS WEATHERS on SatSep 15, 2021 12:18:43 PM EST Finalized by: DECLAN MESSER on SatSep 15, 2021 2:13:51 PM EST Normal [facility] Comment on above: Order Comment: Injur y/Trauma or Illness?:Illness/Other How long have you had these symptoms (acute/chronic)?:Acute Reason for exam?:abd pain Type of Exam?:Initial Additional signs and symptoms?: MR MRCPon 09-15-2021 MR MRCP EXAMINATION: MRCP HISTORY: ORDERING SYSTEM PROVIDED HISTORY: upper abdominal pain, abnormal liver enzymes, Additional signs and symptoms: RUQ pain, nausea COMPARISON: CT of the abdomen and pelvis dated 09/05/2021. TECHNIQUE: Axial and coronal MR imaging was performed using multiple pulse sequences. A three-dimensional reconstruction of the biliary tree was performed using HASTE imaging. FINDINGS: The faint 4 mm calculi in the inferior margin of the gallbladder were better seen on the prior CT than this MRI, and this could be the consequence of breathing motion artifact. There are no calculi in the level of the gallbladder neck. The biliary tree is normal in course and caliber with no biliary ductal dilation. The common hepatic duct measures 4 mm. There are no calculi within the common bile duct. The pancreatic duct measures only 2 mm maximally with no pathologic dilation. There is an unremarkable appearance to the liver, spleen, pancreas, adrenal glands, and kidneys. There is no evidence of aortic aneurysm or pathologically enlarged nodes. No free peritoneal fluid is seen. The bone marrow and surrounding soft tissues are otherwise unremarkable. IMPRESSION: 1. The 2 gallstones at the fundus measuring 4 mm each were better seen on the prior CT compared to this MRI, presumably due to breathing motion artifact. 2. Otherwise unremarkable MRCP including no biliary ductal dilation and no calculi within the common bile duct. 3. No additional abnormalities of significance. SYD/tonja Workstation ID: [id number] Dictated by: DECLAN MESSER on SatSep 15, 2021 3:45:33 PM EST Transcribed by: SWEETIE DELUNA on SatSep 15, 2021 3:55:23 PM EST Finalized by: DECLAN MESSER on SatSep 15, 2021 3:56:08 PM EST Normal [facility] Comment on above: Order Comment: Injur y/Trauma or Illness?:Illness/Other How long have you had these symptoms (acute/chronic)?:Acute Reason for exam?:upper abdominal pain, abnormal liver enzymes Type of Exam?:Subsequent/Follow-up Additional signs and symptoms?:RUQ pain, nausea US ABDOMEN LIMITED STUDYon 1 11-16-2020 US ABDOMEN LIMITED STUDY EXAMINATION: RIGHT UPPER QUADRANT ULTRASOUND, 09/15/2021 HISTORY: US Gallbladder Injury/Trauma or Illness?:Illness/Oth er upper abdominal pain COMPARISON FILMS: Right upper quadrant ultrasound, 07/29/2019. FINDINGS: Static images from real-time examination using amos-scale, color Doppler sonography are provided. The visualized pancreas, inferior vena cava seem normal. The gallbladder seems mildly distended. There is a nonshadowing, echogenic, nonmobile density along the nondependent portion of the gallbladder wall measuring 5.8 x 4.5 x 3.0 mm. This seems overall unchanged. No definite sludge or cholelithiasis seen. There is no gallbladder wall thickening or pericholecystic fluid. The nondependent wall measures 1.4 mm. The common bile duct measures 5.3 mm. The visualized liver seems normal without focal abnormalities. The right kidney measures 10.0 x 4.2 x 5.0 cm with a cortical thickness of 1.3 cm. There is no mass, hydronephrosis, nephrolithiasis or perinephric fluid collections. IMPRESSION: 1. Mildly distended gallbladder but no sonographic evidence of acute cholecystitis or cholelithiasis. The previously described small polyp is probably minimally enlarged now measuring 5.8 mm in the widest dimension compared to previous examination when it measured 4 mm. 2. The remaining study is within normal limits. [employer] Workstation ID: [id number] Dictated by: JEANA LIND on SatSep 15, 2021 9:29:20 AM EST Transcribed by: CARLOS WEATHERS on SatSep 15, 2021 9:33:21 AM EST Finalized by: JEANA LIND on SatSep 15, 2021 9:36:51 AM EST Normal [facility] Comment on above: Order Comment: US Ga llbladder Injury/Trauma or Illness?:Illness/Other How long have you had these symptoms (acute/chronic)?:Acute Reason for exam?:RUQ pain History of cancer?:no Surgeries, chemotherapy, or radiation?:no Type of Exam?:Initial Additional signs and symptoms?:none COVID-19, MOLECULARon 2019 INTERNAL CONTROL (ABBOT ID) Pass Normal [facility] SARS-COV-2 (SPEARS ID) Not Detected Normal Not Detecte d [facility] POC COVID-19 Molecularon Internal Control Pass [facility] Interpretation and review of laboratory results Normal [facility] SARS-CoV-2 Not Detected Not Detected [facility] BMPon 07-29-2019 Anion gap [Moles/Vol] 19 mmol/L 10 - 20 mmol/L [facility] Calcium [Mass/Vol] 9.6 mg/dL 8.4 - 10. 2 mg/dL [facility] Chloride [Moles/Vol] 105 mmol/L 98 - 10 8 mmol/L [facility] Creatinine [Mass/Vol] 0.62 mg/dL 0.4 - 1.1 mg/dL [facility] GFR/1.73 sq M predicted among non-blacks MDRD (S/P/Bld) [Vol rate/Area] The eGFR should be used for monitoring renal function only and not for medication dosing. [facility] GFR/1.73 sq M.predicted CKD-EPI (S/P/Bld) [Vol rate/Area] 122 >=60 mL/min/1.73 m2 [facility] Glucose [Mass/Vol] 104 mg/dL High 65 - 99 mg/dL [facility] HCO3 [Moles/Vol] 22 mmol/L 21 - 32 mmol/L [facility] Interpretation and review of laboratory results Abnormal [facility] Potassium [Moles/Vol] 4.2 mmol/L 3.5 - 5.1 mmol/L [facility] Sodium [Moles/Vol] 142 mmol/L 135 - 145 mmol/L [facility] Urea nitrogen [Mass/Vol] 11 mg/dL 8 - 25 mg/dL [facility] Urea nitrogen/Creatinine [Mass ratio] 17.7 mg/mg [facility] CBC WITH AUTO DIFFERENTIALon 07-29-2019 Basophils (Bld) [#/Vol] 0.03 10*3/uL [facility] Basophils/100 WBC (Bld) 0.3 % [facility] Eosinophils (Bld) [#/Vol] 0.14 10*3/uL [facility] Eosinophils/100 WBC (Bld) 1.2 % [facility] Erythrocyte distribution width (RBC) [Entitic vol] 13.9 % 11.6 - 14.8 % [facility] Hematocrit (Bld) [Volume fraction] 41.0 % 36 - 46 % [facility] Hemoglobin (Bld) [Mass/Vol] 13.0 g/dL 12 - 16 g/dL [facility] Interpretation and review of laboratory results Abnormal [facility] Lymphocytes (Bld) [#/Vol] 3.19 10*3/uL [facility] Lymphocytes/100 WBC (Bld) 28.0 % [facility] MCH (RBC) [Entitic mass] 26.3 pg 26 - 34 pg [facility] MCHC (RBC) [Mass/Vol] 31.7 g/dL 31 - 37 g/dL [facility] MCV (RBC) [Entitic vol] 82.8 fL 80 - 100 fL [facility] Monocytes (Bld) [#/Vol] 0.45 10*3/uL [facility] Monocytes/100 WBC (Bld) 4.0 % [facility] Neutrophils (Bld) [#/Vol] 7.57 10*3/uL High [facility] Neutrophils/100 WBC (Bld) 66.5 % [facility] Nucleated RBC (Bld) [#/Vol] 0.00 10*3/uL [facility] Nucleated RBC/100 WBC (Bld) [Ratio] 0.0 % [facility] Platelet mean volume (Bld) [Entitic vol] 8.9 fL Low 9 - 15.5 fL [facility] Platelets (Bld) [#/Vol] 353 10*3/uL [facility] RBC (Bld) [#/Vol] 4.95 10*6/uL [facility] ealth WBC (Bld) [#/Vol] 11.38 10*3/uL High [facility] Hepatic Function Panel (LFT) on 07-29-2019 Albumin [Mass/Vol] 4.3 g/dL 3.2 - 5.2 g/dL [facility] ALP [Catalytic activity/Vol] 83 U/L 40 - 140 U/L [facility] ALT [Catalytic activity/Vol] 19 U/L 0 - 40 U/L [facility] AST [Catalytic activity/Vol] 16 U/L 0 - 45 U/L [facility] Bilirubin [Mass/Vol] mg/dL 0 - 1.3 mg/dL [facility] Bilirubin.conjugated [Mass/Vol] mg/dL 0 - 0.4 mg/dL [facility] Protein [Mass/Vol] 7.6 g/dL 6 - 8 g/dL [facility] Lipaseon 07-29-2019 Lipase [Catalytic activity/Vol] 30 U/L 15 - 65 U/L [facility] Otheron 07-29-2019 Interpretation and review of laboratory results Normal [facility] Interpretation and review of laboratory results Normal [facility] POC Urinalysis Dipstickon Bilirubin Ql (U) Negative Negative [facility] Glucose Ql (U) Negative Normal, Negative mg/dL [facility] Hemoglobin Ql (U) Negative Negative [facility] Ketones Ql (U) Negative Negative mg/dL [facility] Leukocyte esterase Test strip Ql (U) Negative Negative [facility] Nitrite Ql (U) Negative Negative [facility] pH (U) 5.0 [pH] [facility] Protein Ql (U) Negative Negative mg/dL [facility] Urobilinogen Qn (U) Negative <2.0, 0. 2, Normal, Negative, 1.0, 2.0, <1.0 mg/dL [facility] POC Urine Pregnancyon 2018 HCG ( test) Ql (U) Negative Negative [facility] Internal Control Pass [facility] US ABDOMEN LIMITED STUDYon 1 1. There is a small 4 mm echogenic focus in the nondependent portion of the gallbladder wall which may reflect a small amount of adherent gallbladder sludge or a small benign cholesterol polyp. No further follow-up is required. 2. Otherwise unremarkable right upper quadrant abdominal ultrasound. [employer] Workstation ID: [id number] [facility] EXAMINATION: US ABDOMEN LIMITED STUDY HISTORY: ORDERING SYSTEM PROVIDED HISTORY: ruq pain, TECHNOLOGIST PROVIDED HISTORY: Illness/Other Reason for exam: RUQ pain Cancer History: no Surgery, RadiationHistory: no Encounter Type: Initial Additional signs and symptoms: None ORDERING SYSTEM PROVIDED DIAGNOSIS CODES: COMPARISON: None. TECHNIQUE: Multiple grayscale sonographic images of the right upper quadrant abdominal viscera were obtained. FINDINGS: There is no hepatomegaly or focal mass in the visualized portions of the liver or pancreas. Evaluation of the pancreatic tail is limited due to overlying bowel gas. There is a 4 mm echogenic focus in the nondependent portion of the gallbladder wall. No definite vascular stalk is appreciated this is compatible with a small benign cholesterol polyp or adherent gallbladder sludge. No gallbladder wall thickening or pericholecystic fluid. No intra or extrahepatic biliary ductal dilatation. Common bile duct measures 4 mm in diameter. The right kidney measures 9.3 cm in length and appears unremarkable without hydronephrosis or nephrolithiasis. No free fluid in the right upper quadrant. [facility], Rad In [employer] - 07/29/2019 1:19 PM EDT EXAMINATION: US ABDOMEN LIMITED STUDY HISTORY: ORDERING SYSTEM PROVIDED HISTORY: ruq pain, TECHNOLOGIST PROVIDED HISTORY: Illness/Other Reason for exam: RUQ pain Cancer History: no Surgery, RadiationHistory: no Encounter Type: Initial Additional signs and symptoms: None ORDERING SYSTEM PROVIDED DIAGNOSIS CODES: COMPARISON: None. TECHNIQUE: Multiple grayscale sonographic images of the right upper quadrant abdominal viscera were obtained. FINDINGS: There is no hepatomegaly or focal mass in the visualized portions of the liver or pancreas. Evaluation of the pancreatic tail is limited due to overlying bowel gas. There is a 4 mm echogenic focus in the nondependent portion of the gallbladder wall. No definite vascular stalk is appreciated this is compatible with a small benign cholesterol polyp or adherent gallbladder sludge. No gallbladder wall thickening or pericholecystic fluid. No intra or extrahepatic biliary ductal dilatation. Common bile duct measures 4 mm in diameter. The right kidney measures 9.3 cm in length and appears unremarkable without hydronephrosis or nephrolithiasis. No free fluid in the right upper quadrant. IMPRESSION: 1. There is a small 4 mm echogenic focus in the nondependent portion of the gallbladder wall which may reflect a small amount of adherent gallbladder sludge or a small benign cholesterol polyp. No further follow-up is required. 2. Otherwise unremarkable right upper quadrant abdominal ultrasound. [employer] Workstation ID: [id number] [facility] Urinalysison 07-29-2019 Specific gravity (U) [Rel density] 1.005 [facility] BMPon 03-19-2019 Anion gap [Moles/Vol] 17 mmol/L 10 - 20 mmol/L [facility] Calcium [Mass/Vol] 9.9 mg/dL 8.4 - 10. 2 mg/dL [facility] Chloride [Moles/Vol] 104 mmol/L 98 - 10 8 mmol/L [facility] Creatinine [Mass/Vol] 0.60 mg/dL 0.4 - 1.1 mg/dL [facility] GFR/1.73 sq M predicted among non-blacks MDRD (S/P/Bld) [Vol rate/Area] The eGFR should be used for monitoring renal function only and not for medication dosing. [facility] GFR/1.73 sq M.predicted CKD-EPI (S/P/Bld) [Vol rate/Area] 124 >=60 mL/min/1.73 m2 [facility] Glucose [Mass/Vol] 115 mg/dL High 65 - 99 mg/dL [facility] HCO3 [Moles/Vol] 23 mmol/L 21 - 32 mmol/L [facility] Interpretation and review of laboratory results Abnormal [facility] Potassium [Moles/Vol] 3.9 mmol/L 3.5 - 5.1 mmol/L [facility] Sodium [Moles/Vol] 140 mmol/L 135 - 145 mmol/L [facility] Urea nitrogen [Mass/Vol] 9 mg/dL 8 - 25 mg/dL [facility] Urea nitrogen/Creatinine [Mass ratio] 15.0 mg/mg [facility] CBC WITH AUTO DIFFERENTIALon 03-19-2019 Basophils (Bld) [#/Vol] 0.04 10*3/uL [facility] Basophils/100 WBC (Bld) 0.2 % [facility] Eosinophils (Bld) [#/Vol] 0.35 10*3/uL [facility] Eosinophils/100 WBC (Bld) 2.1 % [facility] Erythrocyte distribution width (RBC) [Entitic vol] 14.0 % 11.6 - 14.8 % [facility] Hematocrit (Bld) [Volume fraction] 41.7 % 36 - 46 % [facility] Hemoglobin (Bld) [Mass/Vol] 13.4 g/dL 12 - 16 g/dL [facility] Interpretation and review of laboratory results Abnormal [facility] Lymphocytes (Bld) [#/Vol] 5.33 10*3/uL High [facility] Lymphocytes/100 WBC (Bld) 31.6 % [facility] MCH (RBC) [Entitic mass] 26.2 pg 26 - 34 pg [facility] MCHC (RBC) [Mass/Vol] 32.1 g/dL 31 - 37 g/dL [facility] MCV (RBC) [Entitic vol] 81.4 fL 80 - 100 fL [facility] Monocytes (Bld) [#/Vol] 0.93 10*3/uL High [facility] Monocytes/100 WBC (Bld) 5.5 % [facility] Neutrophils (Bld) [#/Vol] 10.22 10*3/uL High [facility] Neutrophils/100 WBC (Bld) 60.6 % [facility] Nucleated RBC (Bld) [#/Vol] 0.00 10*3/uL [facility] Nucleated RBC/100 WBC (Bld) [Ratio] 0.0 % [facility] Platelet mean volume (Bld) [Entitic vol] 8.7 fL Low 9 - 15.5 fL [facility] Platelets (Bld) [#/Vol] 418 10*3/uL High [facility] RBC (Bld) [#/Vol] 5.12 10*6/uL [facility] WBC (Bld) [#/Vol] 16.87 10*3/uL [facility] D-DIMER, QUANTITATIVEon 03-01 Fibrin D-dimer FEU (PPP) [Mass/Vol] 0.42 0.27 - 0.49 mcg/mL FEU [facility] Interpretation and review of laboratory results Normal [facility] A D-dimer concentration of <0.5 micrograms per milliliter FEU is considered a low probability for pulmonary embolus (PE) and deep venous thrombosis (DVT). Results of this test should always be interpreted in conjunction with the patient's medical history,clinical presentation, and other findings. Clinical diagnosis should not be based on the results of the D-dimer alone. [facility] Hepatic Function Panel (LFT) on 03-19-2019 Albumin [Mass/Vol] 4.4 g/dL 3.2 - 5.2 g/dL [facility] ALP [Catalytic activity/Vol] 109 U/L 40 - 140 U/L [facility] ALT [Catalytic activity/Vol] 17 U/L 0 - 40 U/L [facility] AST [Catalytic activity/Vol] 16 U/L 0 - 45 U/L [facility] Bilirubin [Mass/Vol] mg/dL 0 - 1.3 mg/dL [facility] Bilirubin.conjugated [Mass/Vol] mg/dL 0 - 0.4 mg/dL [facility] Protein [Mass/Vol] 8.0 g/dL 6 - 8 g/dL [facility] Lipaseon 03-19-2019 Lipase [Catalytic activity/Vol] 39 U/L 15 - 65 U/L [facility] Otheron 03-19-2019 Extra Tube Hold for add-ons. [facility] Comment on above: Auto resulted. Interpretation and review of laboratory results Normal [facility] POC Urine Pregnancyon 2018 HCG ( test) Ql (U) Negative Negative [facility] Internal Control Pass [facility] Interpretation and review of laboratory results Normal [facility] Specific gravity (U) [Rel density] 1.005 [facility] TROPONINon 03-19-2019 Troponin T.cardiac [Mass/Vol] ug/L <=14 ng/L [facility] Troponin T.cardiac [Mass/Vol] No biomarker evidence of cardiac injury. [facility] Troponin T.cardiac [Mass/Vol] ug/L <=14 ng/L [facility] Troponin T.cardiac [Mass/Vol] Normal [facility] XR CHEST AP/PA AND LATon Mild perihilar and lingular/bibasilar atelectatic change with no other acute process. [facility] Workstation ID: [id number] [facility] Interface, Rad In [facility] Speech - 03/19/2019 6:01 AM EDT EXAMINATION: XR CHEST AP/PA AND LAT HISTORY: ORDERING SYSTEM PROVIDED HISTORY: cp, TECHNOLOGIST PROVIDED HISTORY: Illness/Other Reason for exam: chest pain Cancer History: no Surgery, RadiationHistory: no Encounter Type: Initial Additional signs and symptoms: none ORDERING SYSTEM PROVIDED DIAGNOSIS CODES: COMPARISON: None available. FINDINGS: There is no focal pulmonary infiltrate or consolidation. Very mild right perihilar and left base/lingular atelectasis. The cardiomediastinal silhouette is within normal limits. There is no large pleural effusion. No pneumothorax is seen. The pulmonary vasculature is unremarkable. There is no acute osseous abnormality. IMPRESSION: Mild perihilar and lingular/bibasilar atelectatic change with no other acute process. [facility] Workstation ID: [id number] [facility] EXAMINATION: XR CHEST AP/PA AND LAT HISTORY: ORDERING SYSTEM PROVIDED HISTORY: cp, TECHNOLOGIST PROVIDED HISTORY: Illness/Other Reason for exam: chest pain Cancer History: no Surgery, RadiationHistory: no Encounter Type: Initial Additional signs and symptoms: none ORDERING SYSTEM PROVIDED DIAGNOSIS CODES: COMPARISON: None available. FINDINGS: There is no focal pulmonary infiltrate or consolidation. Very mild right perihilar and left base/lingular atelectasis. The cardiomediastinal silhouette is within normal limits. There is no large pleural effusion. No pneumothorax is seen. The pulmonary vasculature is unremarkable. There is no acute osseous abnormality. [facility] ECG 12-LEADon 03-18-2019 Laurent Duque MD 03/19/2019 3:41 AM EKG 12-lead Date/Time: 03/18/2019 11:49 PM Performed by: Laurent Duque MD Authorized by: Laurent Duque MD Interpreted by ED attending physician Comparison: not compared with previous ECG BPM: 103 Comments: Rate 103, sinus tachycardia, normal QRS interval, normal axis, no acute ST elevation, interpreted by [facility] Vital Signs Date Time Vital Sign Value Performing Clinician Facility 02-26-2025 08:45-0400 Body height 157.[address] Steffen Eisenberg MD Work Phone: [facility] 02-26-2025 08:45-0400 Body mass index (BMI) [Ratio] 48.3 kg/m2 Dr. Steffen Eisenberg MD Work Phone: [facility] 02-26-2025 08:45-0400 Body weight 119.[address] Steffen Eisenberg MD Work Phone: [facility] 02-26-2025 08:45-0400 Diastolic blood pressure 66 mm[Hg] Dr. Steffen Eisenberg MD Work Phone: [facility] 02-26-2025 08:45-0400 Systolic blood pressure 102 mm[Hg] Dr. Steffen Eisenberg MD Work Phone: [facility] 01-29-2025 10:30-0400 Body mass index (BMI) [Ratio] 47.7 kg/m2 Dr. Steffen Eisenberg MD Work Phone: [facility] 01-29-2025 10:30-0400 Body weight 118.[address] Steffen Eisenberg MD Work Phone: [facility] 01-29-2025 10:30-0400 Diastolic blood pressure 81 mm[Hg] Dr. Steffen Eisenberg MD Work Phone: [facility] 01-29-2025 10:30-0400 Systolic blood pressure 114 mm[Hg] Dr. Steffen Eisenberg MD Work Phone: [facility] 01-01-2025 10:10-0400 Body mass index (BMI) [Ratio] 47.9 kg/m2 Dr. Steffen Eisenberg MD Work Phone: [facility] 01-01-2025 10:10-0400 Body weight 118.[address] Steffen Eisenberg MD Work Phone: [facility] 01-01-2025 10:10-0400 Diastolic blood pressure 82 mm[Hg] Dr. Steffen Eisenberg MD Work Phone: [facility] 01-01-2025 10:10-0400 Systolic blood pressure 125 mm[Hg] Dr. Steffen Eisenberg MD Work Phone: [facility] 12-03-2024 13:32-0500 Body mass index (BMI) [Ratio] 47.9 kg/m2 Dr. Steffen Eisenberg MD Work Phone: [facility] 12-03-2024 13:32-0500 Body weight 119.[address] Steffen Eisenberg MD Work Phone: [facility] 12-03-2024 13:32-0500 Diastolic blood pressure 82 mm[Hg] Dr. Steffen Eisenberg MD Work Phone: [facility] 12-03-2024 13:32-0500 Systolic blood pressure 120 mm[Hg] Dr. Steffen Eisenberg MD Work Phone: [facility] 11-10-2024 22:23-0500 Body temperature 98.2 [degF] Dr. Steffen Eisenberg MD Work Phone: [facility] 11-10-2024 22:23-0500 Diastolic blood pressure 97 mm[Hg] Dr. Steffen Eisenberg MD Work Phone: [facility] 11-10-2024 22:23-0500 Heart rate 115 /min Dr. Steffen Eisenberg MD Work Phone: [facility] 11-10-2024 22:23-0500 Respiratory rate 18 /min Dr. Steffen Eisenberg MD Work Phone: [facility] 11-10-2024 22:23-0500 SaO2% (BldA) [Mass fraction] 99 % Dr. Steffen Eisenberg MD Work Phone: [facility] 11-10-2024 22:23-0500 Systolic blood pressure 139 mm[Hg] Dr. Steffen Eisenberg MD Work Phone: [facility] 11-10-2024 18:31-0500 Body mass index (BMI) [Ratio] 47.4 kg/m2 Dr. Steffen Eisenberg MD Work Phone: [facility] 11-10-2024 18:31-0500 Body weight 117.[address] Steffen Eisenberg MD Work Phone: [facility] 11-05-2024 14:27-0500 Body mass index (BMI) [Ratio] 47.5 kg/m2 Dr. Steffen Eisenberg MD Work Phone: [facility] 11-05-2024 14:27-0500 Body weight 117.[address] Steffen Eisenberg MD Work Phone: [facility] 11-05-2024 14:27-0500 Diastolic blood pressure 89 mm[Hg] Dr. Steffen Eisenberg MD Work Phone: [facility] 11-05-2024 14:27-0500 Systolic blood pressure 125 mm[Hg] Dr. Steffen Eisenberg MD Work Phone: [facility] 01-12-2024 11:02-0400 Body temperature 97.9 [degF] Gina Sahu APRN.[employer] Work Phone: [facility] 01-12-2024 11:02-0400 Body weight 120.3 kg Gina Sahu APRN.[employer] Work Phone: [facility] 01-12-2024 11:02-0400 Diastolic blood pressure 78 mm[Hg] Gina Sahu APRN.[employer] Work Phone: [facility] 01-12-2024 11:02-0400 Heart rate 134 /min Gina Sahu APRN.[employer] Work Phone: [facility] 01-12-2024 11:02-0400 Respiratory rate 20 /min Gina Sahu APRN.[employer] Work Phone: [facility] 01-12-2024 11:02-0400 SaO2% (BldA) [Mass fraction] 100 % Gina Sahu APRN.[employer] Work Phone: [facility] 01-12-2024 11:02-0400 Systolic blood pressure 118 mm[Hg] Gina Sahu APRN.[employer] Work Phone: [facility] 11-04-2023 11:53-0500 Body height 157.48 cm [facility] 11-04-2023 11:53-0500 Body mass index (BMI) [Ratio] 48.1 kg/m2 [facility] 11-04-2023 11:53-0500 Body weight 119.4 kg [facility] 11-04-2023 11:53-0500 Diastolic blood pressure 89 mm[Hg] [facility] 11-04-2023 11:53-0500 Systolic blood pressure 125 mm[Hg] [facility] 09-27-2022 09:42-0500 Body height 158.1 cm Marta Del Valle MD Work Phone: [facility] 09-27-2022 09:42-0500 Body mass index (BMI) [Ratio] 42.84 kg/m2 Marta Del Valle MD Work Phone: [facility] 09-27-2022 09:42-0500 Body weight 107.11 kg Marta Del Valle MD Work Phone: [facility] 09-27-2022 09:42-0500 Diastolic blood pressure 72 mm[Hg] Marta Del Valle MD Work Phone: [facility] 09-27-2022 09:42-0500 Heart rate 113 /min Marta Del Valle MD Work Phone: [facility] 09-27-2022 09:42-0500 SaO2% (BldA) [Mass fraction] 99 % Marta Del Valle MD Work Phone: [facility] 09-27-2022 09:42-0500 Systolic blood pressure 114 mm[Hg] Marta Del Valle MD Work Phone: [facility] 09-05-2022 13:25-0500 Body height 157.5 cm Faith Starkey MD Work Phone: [facility] 09-05-2022 13:25-0500 Body mass index (BMI) [Ratio] 42.43 kg/m2 Faith Starkey MD Work Phone: [facility] 09-05-2022 13:25-0500 Body weight 105.23 kg Faith Starkey MD Work Phone: [facility] 09-05-2022 13:25-0500 Diastolic blood pressure 70 mm[Hg] Faith Starkey MD Work Phone: [facility] 09-05-2022 13:25-0500 Systolic blood pressure 124 mm[Hg] Faith Starkey MD Work Phone: [facility] 05-17-2021 13:53-0400 Body height 157.5 cm Faith Starkey MD Work Phone: [facility] 05-17-2021 13:53-0400 Body mass index (BMI) [Ratio] 44.45 kg/m2 Faith Starkey MD Work Phone: [facility] 05-17-2021 13:53-0400 Body weight 110.22 kg Faith Strakey MD Work Phone: [facility] 05-17-2021 13:53-0400 Diastolic blood pressure 78 mm[Hg] Faith Starkey MD Work Phone: [facility] 05-17-2021 13:53-0400 Systolic blood pressure 118 mm[Hg] Faith Starkey MD Work Phone: [facility] 07-27-2020 10:34-0400 BP Diastolic 88 mm[Hg] Marli Thompson [facility] 07-27-2020 10:34-0400 BP Systolic 132 mm[Hg] Marli Thompson [facility] 07-27-2020 10:32-0400 BMI (Body Mass Index) 41.5 kg/m2 Marli Thompson [facility] 07-27-2020 10:32-0400 Body Temperature 99.19 [degF] Marli Thompson [facility] 07-27-2020 10:32-0400 Body weight 102.92 kg Marli Thompson [facility] 07-27-2020 10:32-0400 Pulse (Heart Rate) 108 /min Marli Thompson [facility] 07-27-2020 10:32-0400 Pulse Oximetry 98 % Marli Thompson [facility] 07-27-2020 10:32-0400 Respiratory Rate 16 /min Marli Thompson [facility] 08-19-2019 10:49-0500 BMI (Body Mass Index) 38.89 kg/m2 Janes Gutiérrez [facility] 08-19-2019 10:49-0500 Body Temperature 98.2 [degF] Janes Gutiérrez [facility] 08-19-2019 10:49-0500 Body weight 96.44 kg Janes Gutiérrez [facility] 08-19-2019 10:49-0500 BP Diastolic 84 mm[Hg] Janes Gutiérrez [facility] 08-19-2019 10:49-0500 BP Systolic 135 mm[Hg] Janes Gutiérrez [facility] 08-19-2019 10:49-0500 Height 157.5 cm Janes Gutiérrez [facility] 08-19-2019 10:49-0500 Pulse (Heart Rate) 106 /min [facility] 07-29-2019 13:20-0400 Pulse (Heart Rate) 86 /min [facility] 07-29-2019 13:20-0400 Pulse Oximetry 98 % [facility] 07-29-2019 10:27-0400 BMI (Body Mass Index) 39.32 kg/m2 [facility] 07-29-2019 10:27-0400 Body Temperature 97.81 [degF] [facility] 07-29-2019 10:27-0400 Body weight 97.52 kg [facility] 07-29-2019 10:27-0400 BP Diastolic 77 mm[Hg] [facility] 07-29-2019 10:27-0400 BP Systolic 126 mm[Hg] [facility] 07-29-2019 10:27-0400 Height 157.5 cm [facility] 07-29-2019 10:27-0400 Respiratory Rate 18 /min [facility] 03-18-2019 23:29-0400 Body Temperature 98.91 [degF] [facility] 03-18-2019 23:29-0400 BP Diastolic 89 mm[Hg] [facility] 03-18-2019 23:29-0400 BP Systolic 149 mm[Hg] [facility] 03-18-2019 23:29-0400 Pulse (Heart Rate) 105 /min [facility] 03-18-2019 23:29-0400 Pulse Oximetry 100 % [facility] 03-18-2019 23:29-0400 Respiratory Rate 16 /min [facility] 03-18-2019 23:27-0400 BMI (Body Mass Index) 43.46 kg/m2 [facility] 03-18-2019 23:27-0400 Body weight 104.33 kg Laurent Duque [facility] 03-18-2019 23:27-0400 Height 154.9 cm Laurent Duque [facility] 02-18-2019 10:46-0400 BMI (Body Mass Index) 42.54 kg/m2 Janes Gutiérrez [facility] 02-18-2019 10:46-0400 Body Temperature 98.4 [degF] Janes Gutiérrez [facility] 02-18-2019 10:46-0400 Body weight 105.51 kg Janes [facility] 02-18-2019 10:46-0400 BP Diastolic 96 mm[Hg] [facility] 02-18-2019 10:46-0400 BP Systolic 143 mm[Hg] Janes [facility] 02-18-2019 10:46-0400 Height 157.5 cm Janes [facility] 02-18-2019 10:46-0400 Pulse (Heart Rate) 109 /min [facility] 08-20-2018 08:52-0500 BMI (Body Mass Index) 41.77 kg/m2 Janes [facility] 08-20-2018 08:52-0500 Body Temperature 98.1 [degF] Janes [facility] 08-20-2018 08:52-0500 BP Diastolic 86 mm[Hg] Janes [facility] 08-20-2018 08:52-0500 BP Systolic 120 mm[Hg] Janes [facility] 08-20-2018 08:52-0500 Height 157.5 cm Janes [facility] 08-20-2018 08:52-0500 Pulse (Heart Rate) 118 /min Janes [facility] 08-20-2018 08:52-0500 Weight 103.6 kg [facility] Encounters Encounter Date Encounter Type Care Provider Facility Start: 05-12-2025 ambulatory Steffen Eisenberg Facility :[facility] Start: 03-10-2025 ambulatory Steffen Eisenberg Facility :[facility] Start: 02-26-2025 End: 02-26-[address] Apple Lao MD -[facility] Work Phone: Start: 02-26-2025 End: 02-26-[address] Steffen Eisenberg MD Work Phone: [facility] Work Phone: Start: 02-26-2025 End: 02-26-2025 ambulatory Apple Lao Facility:[facility] Start: 02-23-2025 End: 02-23-2025 ambulatory [facility] Start: 01-29-2025 End: 01-29-[address] Edel Bullock DO -[facility] Work Phone: Start: 01-29-2025 End: 01-29-2025 ambulatory Steffen Traorelay Facility:[facility] Start: 01-28-2025 End: 01-28-2025 ambulatory [facility] Start: 01-01-2025 End: 01-01-[address] Apple Lao MD -[facility] Work Phone: Start: 01-01-2025 End: 01-01-2025 ambulatory Steffen Eisenberg Facility:[facility] Start: 12-28-2024 End: 12-28-2024 ambulatory [facility] Start: 12-03-2024 End: 12-03-[address] Edel Bullock DO -[facility] Work Phone: Start: 12-03-2024 End: 12-03-2024 ambulatory Steffen Eisenberg Facility:[facility] Start: 11-10-2024 End: 11-10-2024 Emergency department patient visit Dr. Ld Fermin MD -Emergency Department Work Phone: Start: 11-05-2024 Encounter for genera l adult medical examination without abnormal findings Steffen Eisenberg [facility] Start: 11-05-2024 End: 11-05-[address] Edel Bullock DO -[facility] Work Phone: Start: 11-05-2024 End: 11-05-2024 ambulatory Steffen Eisenberg Facility:[facility] Start: 11-03-2024 End: 11-03-2024 ambulatory Facility:[facility] Start: 11-03-2024 End: 11-03-2024 Telemedicine consultation with patient Demarcus Rosalesreece WRIGHT Work Phone: Telemedicine Comment on above: Viral URI with cough (Primary Dx) Start: 11-03-2024 End: 11-04-2024 ambulatory Steffen [place] Facility:[facility] Start: 10-23-2024 End: 10-23-2024 ambulatory Steffen [place] Facility:[facility] Start: 10-15-2024 End: 10-15-2024 ambulatory Steffen [place] Facility:[facility] Start: 10-09-2024 End: 10-09-2024 ambulatory Steffen Faina Facility:[facility] Start: 10-09-2024 End: 10-09-2024 ambulatory Steffen [place] Facility:[facility] Start: 10-02-2024 ambulatory Steffen Faina Facility :[facility] Start: 10-02-2024 End: 10-02-2024 Subsequent hospital visit by physician [facility] 2 [facility] Comment on above: Encounter for pregna ncy test, result positive ([facility] Start: 10-02-2024 End: 10-02-2024 ambulatory [facility] Start: 09-25-2024 End: 09-25-2024 Subsequent hospital visit by physician Tucker Ultrasound 2 [facility] Comment on above: Encounter for pregna ncy test, result positive ([facility]) Start: 09-25-2024 End: 09-25-2024 ambulatory [facility] Start: 09-15-2024 End: 09-15-2024 ambulatory STEFFEN [facility] Start: 09-11-2024 End: 09-11-2024 ambulatory STEFFEN [facility] Start: 09-09-2024 End: 09-09-2024 ambulatory STEFFEN [facility] Start: 09-04-2024 End: 09-04-2024 ambulatory STEFFEN CEFERINO [facility] Start: 08-25-2024 End: 08-25-2024 ambulatory STEFFEN DE LA VEGA [facility] Start: 08-21-2024 End: 08-21-2024 Subsequent hospital visit by physician Tucker Ultrasound 1 [facility] Comment on above: Encounter for assist ed reproductive fertility procedure cycle Start: 08-21-2024 End: 08-21-2024 ambulatory [facility] Start: 08-14-2024 End: 08-14-2024 Subsequent hospital visit by physician Tucker Ultrasound 2 [facility] Comment on above: Encounter for assist ed reproductive fertility procedure cycle Start: 08-14-2024 End: 08-14-2024 ambulatory [facility] Start: 08-04-2024 End: 08-04-2024 [facility] Start: 07-29-2024 End: 07-29-2024 Jenifer Del Valle MD Work Phone: [facility] [place] Start: 07-20-2024 End: 07-20-2024 ambulatory No Primary Care Physician Facility:[facility] Start: 06-24-2024 End: 06-24-2024 Subsequent hospital visit by physician Tucker Ultrasound 2 [facility] Comment on above: Encounter for assist ed reproductive fertility procedure cycle Start: 06-24-2024 End: 06-24-2024 ambulatory [facility] Start: 06-22-2024 End: 06-22-2024 Subsequent hospital visit by physician Tucker Ultrasound 2 [facility] Comment on above: Encounter for assist ed reproductive fertility procedure cycle Start: 06-22-2024 End: 06-22-2024 ambulatory [facility] Start: 06-19-2024 End: 06-19-2024 Subsequent hospital visit by physician Tucker Ultrasound 2 [facility] Comment on above: Encounter for assist ed reproductive fertility procedure cycle Start: 06-19-2024 End: 06-19-2024 ambulatory [facility] Start: 06-15-2024 End: 06-15-2024 Subsequent hospital visit by physician Tucker Jimenez 2 [facility] Comment on above: Encounter for assist ed reproductive fertility procedure cycle Start: 06-15-2024 End: 06-15-2024 ambulatory [facility] Start: 05-27-2024 End: 05-27-2024 ambulatory No Primary Care Physician Facility:[facility] Start: 01-12-2024 End: 01-12-2024 ambulatory Facility:[facility] Start: 01-12-2024 End: 01-12-2024 Patient encounter procedure Gina Sahu APRN.[facility] Work Phone: [facility] Comment on above: URI, acute (Primary Dx); Acute otitis media, right; Acute cough Start: 12-09-2023 Non-patient / Non-visit MARTA STEPHEN [facility] Start: 12-09-2023 End: 12-09-2023 ambulatory [facility] Work Phone: Start: 12-09-2023 End: 12-09-2023 [facility] Work Phone: Start: 11-04-2023 End: 11-04-2023 Patient encounter procedure MARTA DEL VALLE [facility] Work Phone: Start: 05-01-2023 Patient encounter status Marta Del Valle MD Work Phone: [facility] Start: 05-01-2023 ambulatory MARTA DEL VALLE Facili ty:[facility] Start: 04-03-2023 ambulatory MARTA Dimitri DEL VALLE Facili ty:[facility] Start: 01-09-2023 ambulatory MARTA Dimitri DEL VALLE Facili ty:[facility] Start: 01-09-2023 End: 01-09-2023 Subsequent hospital visit by physician Lawrence Young MD Work Phone: [facility] [place] Comment on above: Arrived Start: 12-19-2022 ambulatory SELF SELF Facility:[facility] Start: 09-27-2022 ambulatory SELF SELF Facility:[facility] Start: 09-27-2022 Encounter for genera l adult medical examination without abnormal findings MARTA DEL VALLE Facility:[facility] Start: 09-27-2022 End: 09-27-2022 Patient encounter status Marta Del Valle MD Work Phone: [facility] Start: 09-27-2022 End: 09-27-2022 Periodic preventive med est patient 18-39 yrs Marta Del Valle MD Work Phone: [facility] Comment on above: Well adult exam (Cristy hector Dx); Prolonged ; Need for influenza vaccination; MELINA (generalized anxiety disorder); Gastroesophageal reflux disease without esophagitis; Recurrent major depressive disorder, in full remission Start: 09-05-2022 ambulatory SELF SELF Facility:[facility] Start: 09-05-2022 Encounter for gynecological examination (general) (routine) without abnormal findings FAITH STARKEY Facility:[facility] Start: 09-05-2022 End: 09-05-2022 Patient encounter procedure Faith Starkey MD Work Phone: [facility] Start: 09-05-2022 End: 09-05-2022 Periodic preventive med est patient 18-39 yrs Faith Starkey MD Work Phone: [facility] Comment on above: Well woman exam with routine gynecological exam (Primary Dx) Start: 08-10-2022 ambulatory MARTA DEL VALLE Facili ty:[facility] Start: 10-03-2021 End: 10-07-2021 ambulatory Julissa HERNANDEZ [facility] Start: 09-27-2021 Patient encounter status Radha Starkey MD Work Phone: [facility] Start: 09-15-2021 End: 09-16-2021 ambulatory Julissa HERNANDEZ [facility] Start: 05-17-2021 End: 05-17-2021 Subsequent care visit Faith Starkey MD Work Phone: [facility] [place] Comment on above: Supervision of mirna nair first , antepartum (Primary Dx) Start: 08-23-2020 End: 08-23-2020 Patient encounter procedure WILL PRABHAKAR [facility] Start: 08-23-2020 End: 08-23-2020 Office outpatient new 30 minutes Will Prabhakar Work Phone: [facility] Comment on above: Acne vulgaris (Prima ry Dx); Dermal nevus of abdominal wall Start: 07-27-2020 End: 07-27-2020 Patient encounter procedure MARTA DEL VALLE [facility] Start: 07-27-2020 End: 07-27-2020 Office outpatient new 30 minutes Marlicatherine Thompson Work Phone: [facility] [place] Comment on above: Close Exposure to Co vid-19 Virus (Primary Dx); Generalized body aches; Diarrhea, unspecified type Start: 08-19-2019 End: 08-19-2019 Office outpatient visit 15 minutes Janes Gutiérrez Work Phone: [facility] Comment on above: Leukocytosis, unspec ified type (Primary Dx) Start: 07-29-2019 End: 07-29-2019 Emergency department patient visit Robert Montaño Peterson Work Phone: [facility] Comment on above: Epigastric pain (Cristy hector Dx) Start: 05-09-2019 End: 05-09-2019 Refill Marta Del Valle Work Phone: [facility] [place] Start: 03-19-2019 Follow-up encounter Marta queen Work Phone: [facility] [place] Comment on above: RE: Follow up from E R Visit Start: 03-19-2019 End: 03-19-2019 Patient encounter procedure Marta Del Valle Work Phone: [facility] Start: 03-18-2019 End: 03-19-2019 Emergency department patient visit Laurent Duque Work Phone: [facility] Comment on above: Abdominal pain, unsp ecified abdominal location (Primary Dx); Chest pain, unspecified type; Leukocytosis, unspecified type Start: 03-18-2019 End: 03-18-2019 Patient encounter procedure Marta Del Valle Work Phone: [facility] Start: 02-18-2019 End: 01-22-2020 Office outpatient visit 15 minutes Janes Gutiérrez Work Phone: [facility] Comment on above: Leukocytosis, unspec ified type (Primary Dx) Start: 08-20-2018 End: 08-20-2018 Office outpatient visit 15 minutes Janes Marla Work Phone: [facility] Comment on above: Leukocytosis, unspec ified type (Primary Dx) Start: 12-09-2013 End: 12-27-2020 Patient encounter status Faith Starkey MD Work Phone: [facility] Start: 12-03-2013 End: 03-03-2014 ambulatory [facility] Procedures Date Procedure Procedure Detail Performing Clinician Start: 11-10-2024 D-dimer assay, quantitative Dr. Steffen Eisenberg MD Work Phone: Comment on above: NORMAL D-Dimer level (<0.50) indicates no DVT or PE. Start: 11-10-[address] Steffen Eisenberg MD Work Phone: Start: 11-10-2024 Measurement of renal function Dr. Steffen Eisenberg MD Work Phone: Comment on above: GFR Calc Start: 10-02-2024 Us preg uterus real time w/image dcmtn transvag Levon Braxton MD Work Phone: Start: 09-25-2024 Us preg uterus real time w/image dcmtn transvag Levon Braxton MD Work Phone: Start: 06-15-2024 Us transvaginal Levon Braxton MD Work Phone: Start: 12-09-2023 Salpingography MARTA QUEEN Start: 01-09-2023 Diagnostic mammograp hy computer-aided detcj bi Lawrence Young MD Work Phone: Start: 09-05-2022 Microscopic observat ion [Identifier] in Cervix by Cyto stain Marta Del Valle MD Work Phone: Start: 07-27-2020 COVID-19, MOLECULAR Ali arik Thompson Work Phone: Start: 09-02-2019 Microscopic observat ion [Identifier] in Cervix by Cyto stain Faith Starkey MD Work Phone: Start: 07-29-2019 US scan of upper abdomen Max Alan Work Phone: Start: 07-29-2019 Basic metabolic 2000 panel - Serum or Plasma Max Alan Work Phone: Start: 07-29-2019 Complete blood count with white cell differential, automated Max Alan Work Phone: Start: 07-29-2019 Complete blood count with white cell differential, manual Max Alan Work Phone: Start: 07-29-2019 Hepatic function 200 0 panel - Serum or Plasma Max Alan Work Phone: Start: 07-29-2019 Lipase [Enzymatic activity/volume] in Serum or Plasma Max Alan Work Phone: Start: 07-29-2019 Choriogonadotropin ( test) [Presence] in Urine Robert Peterson Work Phone: Start: 07-29-2019 Urinalysis macro (di pstick) panel - Urine Robert Peterson Work Phone: Start: 03-19-2019 Troponin measurement Ch ad Declan Duque Work Phone: Start: 03-19-2019 Standard chest X-ray thu Duque Work Phone: Start: 03-19-2019 Choriogonadotropin ( test) [Presence] in Urine Laurent Duque Work Phone: Start: 03-19-2019 Basic metabolic 2000 panel - Serum or Plasma Laurent Duque Work Phone: Start: 03-19-2019 Complete blood count with white cell differential, automated Laurent Duque Work Phone: Start: 03-19-2019 Complete blood count with white cell differential, manual Laurent Duque Work Phone: Start: 03-19-2019 D-dimer assay, quantitative Laurent Duque Work Phone: Start: 03-19-2019 BUCK TOP Laurent Duque Work Phone: Start: 03-19-2019 Hepatic function 200 0 panel - Serum or Plasma Laurent Duque Work Phone: Start: 03-19-2019 LIGHT GREEN TOP Laurent Sharp Work Phone: Start: 03-19-2019 Lipase [Enzymatic activity/volume] in Serum or Plasma Laurent Duque Work Phone: Start: 03-19-2019 RAINBOW DRAW Laurent Duque Work Phone: Start: 03-19-2019 Troponin measurement thu Duque Work Phone: Start: 03-19-2019 12 lead ECG Laurent Duque Work Phone: Start: 05-08-2016 Microscopic observat ion [Identifier] in Cervix by Cyto stain Marta Del Valle H/O: section H/O succes sful vaginal after , currently Dr. Steffen Eisenberg MD Work Phone: Comment on above: x1, Desires rpt [facility], [place] , 2020. desires re peat C/S H/O: section H/O sectio n Dr. Edel Bullock DO H/O: section H/O sectio n Dr. Edel Bullock DO H/O: section H/O sectio n Dr. Apple Lao MD H/O: section H/O sectio n Dr. Edel Bullock DO H/O: section H/O sectio n Dr. Apple Lao MD Plan of Treatment Date Care Activity Detail Author Start: 2039 Zoster Vaccines (1 o f 2) Zoster Vaccines (1 of 2) [facility] Start: 05-03-2031 DTaP/Tdap/Td Vaccine s (3 - Td or Tdap) DTaP/Tdap/Td Vaccines (3 - Td or Tdap) [facility] Start: 05-03-2031 [facility] Start: 05-03-2031 Urine microalbumin profile DTaP,Tdap,Td Vaccine (3 - Td or Tdap) [facility] Start: 08-27-2027 Tetanus vaccination [facility] Start: 09-05-2025 Screening for malign ant neoplasm of cervix [facility] Start: 02-26-2025 CBC W Auto Different ial panel - Blood [facility] Start: 02-26-2025 Measurement of gluco se 2 hours after glucose challenge for glucose tolerance test [facility] Start: 02-26-2025 Serologic test for syphilis [facility] Start: 02-26-2025 [facility] Start: 11-10-2024 End: 11-10-2024 [facility] Start: 10-02-2024 End: 10-02-2024 Patient encounter procedure 10/02/2024 9:15 AM EST Appointment [address] [id number] [facility] Start: 08-25-2024 End: 08-25-2024 Patient encounter procedure 08/25/2024 8:30 AM EST Appointment [address] [id number] [facility] Start: 08-21-2024 End: 08-21-2024 Patient encounter procedure 08/21/2024 7:45 AM EST Appointment [facility] [address] [place] [address] [facility] Start: 06-24-2024 End: 06-24-2024 Patient encounter procedure 06/24/2024 7:30 AM EDT Appointment [facility] [address] [place] [address] [facility] Start: 06-22-2024 End: 06-22-2024 Patient encounter procedure 06/22/2024 7:45 AM EDT Appointment [facility] [address] [place] [address] [facility] Start: 06-19-2024 End: 06-19-2024 Patient encounter procedure 06/19/2024 7:45 AM EDT Appointment [id number] [place] [address] [facility] Start: 05-31-2024 COVID-19 Vaccine ( season) COVID-19 Vaccine ( season) [facility] Start: 05-31-2024 COVID-19 VACCINE ( season) COVID-19 VACCINE ( season) [facility] Start: 05-31-2024 COVID-19 Vaccine ( season) COVID-19 Vaccine ( season) [facility] Start: 05-31-2024 Influenza vaccination [facility] Start: 05-01-2024 PREVENTATIVE HEALTH VISIT PREVENTATIVE HEALTH VISIT [facility] Start: 09-30-2023 Behavioral Health Screening Behavioral Health Screening [facility] Start: 09-27-2023 End: 09-27-2023 Patient encounter procedure 09/27/2023 Office Visit [place] [address] [place] [phone] [facility]st[facility]s [facility] Start: 09-27-2023 PREVENTATIVE HEALTH VISIT PREVENTATIVE HEALTH VISIT [facility] Start: 09-05-2023 PREVENTATIVE HEALTH VISIT PREVENTATIVE HEALTH VISIT [facility] Start: 05-31-2023 Covid-19 Vaccine ( season) Covid-19 Vaccine ( season) [facility] Start: 05-01-2023 End: 05-01-2023 Patient encounter procedure 05/01/2023 Office Visit General Medicine Marta Del Valle MD [address] [place] [address], [place] [address] Primary Care [facility] Start: 09-27-2022 End: 09-27-2022 Patient encounter procedure 09/27/2022 Office Visit General Marta Thakur MD [address] [place] [address], [place] [address] Primary Care [facility] Start: 09-02-2022 Microscopic observat ion [Identifier] in Cervix by Cyto stain PAP SMEAR [facility] Start: 09-02-2022 Screening for malign ant neoplasm of cervix PAP SMEAR [facility] Start: 05-31-2022 Influenza vaccination INFLUENZA VACC INE (#1) [facility] Start: 09-28-2021 PREVENTATIVE HEALTH VISIT PREVENTATIVE HEALTH VISIT [facility] Start: 09-27-2021 End: 09-27-2021 Patient encounter procedure 09/27/2021 Office Visit General Medicine Marta Del Valle MD [address] [place] [address], [place] [address] Primary Care Outpatient [facility] Start: 08-29-2021 End: 08-29-2021 Office Visit 08/29/2021 Office Visit Dermatology SrinivasWill MD [address] [place] [address] [phone] [facility] Start: 06-21-2021 End: 06-21-2021 Follow-up encounter 06/21/2021 Follow Up Visit PHOTORESIST PRINTER Faith Starkey MD [address] [address] Obstetrics, Gynecology and Midwifery [facility] Start: 06-07-2021 End: 06-07-2021 Follow-up encounter 06/07/2021 Follow Up Visit Maternal Medicine [facility] [place] Start: 05-31-2021 Influenza vaccination INFLUENZA VACC INE (#1) [facility] Start: 05-31-2021 End: 05-31-2021 Follow-up encounter 05/31/2021 Follow Up Visit PHOTORESIST PRINTER Faith Starkey MD [address] [address] Obstetrics, Gynecology and Midwifery [facility] Start: 05-22-2021 End: 05-22-2021 ambulatory 05/22/2021 Rehab Services Visit Sports Medicine and Rehabilitation Faith Starkey MD [address] [phone] Tere Cross, PT [address] [place] [address] Sports Medicine [facility] [place] Start: 04-01-2021 COVID-19 VACCINE (3 - Booster for Pfizer series) COVID-19 VACCINE (3 - Booster for Pfizer series) [facility] Start: 03-29-2021 Influenza vaccinatio n given Sequential Influenza Vaccine (#1) [facility] Comment on above: Postponed from 05/31 (Patient Refused) Start: 08-23-2020 End: 08-23-2020 Office Visit 08/23/2020 Office Visit Dermatology Srinivas, Will Garcia MD [address] [place] [address] [facility] Start: 2019 Screening for malign ant neoplasm of cervix HPV Testing [facility] Start: 09-02-2019 End: 09-02-2019 Office Visit 09/02/2019 Office Visit PHOTORESIST PRINTER Faith Starkey MD [address] [facility] [address] [place] [address] PHOTORESIST PRINTER [facility] Start: 08-19-2019 End: 08-19-2019 Office Visit 08/19/2019 Office Visit Oncology Janes Gutiérrez MD [address] [facility] [address] [place] [address] [phone] [facility] Start: 05-31-2019 Influenza vaccination INFLUENZA VACC INE (#1) [facility] Start: 05-31-2019 Influenza vaccinatio n given [facility] Start: 05-08-2019 Microscopic observat ion Cyto stain Nom (Cvx) PAP SMEAR [facility] Start: 05-08-2019 Screening for malign ant neoplasm of cervix PAP SMEAR [facility] Start: 02-18-2019 End: 02-18-2019 Ambulatory 02/18/2019 Office Visit Oncology Janes Gutiérrez MD [address] [address] [phone] [facility] Start: 02-17-2019 End: 08-21-2019 Complete blood count with white cell differential, manual CBC and Differential Routine Leukocytosis, Unspecified Type Expected: 02/17/2019, Expires: 08/21/2019 [facility] Comment on above: Expected: 02/17/2019 , Expires: 08/21/2019 Start: 05-31-2018 Influenza vaccination SEQUENTI AL INFLUENZA VACCINE (#1) [facility] Start: 01-16-2016 Screening for malign ant neoplasm of cervix Pap Testing [facility] Start: 01-15-2014 Screening for malign ant neoplasm of cervix Cervical Cancer Screening [facility] Start: 2010 Screening for malign ant neoplasm of cervix HPV/Cotest [facility] Start: 2008 Hepatitis B vaccination HEP B VACCINE (1 of 3 - 19+ 3-dose series) [facility] Start: 2008 Hepatitis B Vaccine (1 of 3 - 19+ 3-dose series) Hepatitis B Vaccine (1 of 3 - 19+ 3-dose series) [facility] Start: 2008 Hepatitis B Vaccines (1 of 3 - 19+ 3-dose series) Hepatitis B Vaccines (1 of 3 - 19+ 3-dose series) [facility] Start: 2007 Anxiety Screening Anxiety Screening [facility] Start: 2007 Depression Screening Depression Scre ening [facility] Start: 2007 Hepatitis C antibody , confirmatory test Hepatitis C Screening [facility] Start: 2007 Hepatitis C screening Hepatitis C Sc manish [facility] Start: 2007 HIV screening HIV Screening [facility] Start: 2004 HIV screening HIV Screening [facility] Start: 2002 Varicella vaccination Varicell a Vaccines (1 of 2 - 13+ 2-dose series) [facility] Start: 2001 Adolescent depressio n screening assessment Depression Screening (PHQ9) [facility] Start: 1992 History and physical examination, annual for health maintenance Wellness Visit [facility] Start: 1990 MMR Vaccines (1 of 1 - Standard series) MMR Vaccines (1 of 1 - Standard series) [facility] Start: 1989 HIV screening HIV Screening [facility] Start: 1989 Lipid panel Lipid Panel [facility] Start: 1989 Screening for malign ant neoplasm of cervix PAP SMEAR [facility] Start: 1989 Yearly Adult Physical Yearly Adult P hysical [facility] Cytology Cervical or vaginal smear or scraping study CYTOLOGY-FLAGSETTER, 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 Cytology Routine Well woman exam with routine gynecological exam 09/05/2022 3:07 PM EST [facility] Erythrocyte mean corpuscular volume determination [facility] Hematocrit [Volume Fraction] of Blood [facility] Hemoglobin [Mass/volume] in Blood [facility] Leukocytes [#/volume ] in Blood [facility] Mean corpuscular hemoglobin concentration determination [facility] Mean corpuscular hemoglobin determination [facility] Neutrophil count [facility] Neutrophil percent differential count [facility] Patient Education ED About Arrhythmias [facility] Work Phone: Patient referral [facility] Work Phone: Platelets [#/volume] in Blood [facility] Red blood cell count [facility] Red cell distributio n width determination [facility] End: 06-19-2024 GERRY US Pelvis Limited Follicles - Follicle Studies Performed [facility] Work Phone: Comment on above: Once for 1 Occurrenc es starting 06/19/2024 until 06/19/2024 End: 06-22-2024 GERRY US Pelvis Limited Follicles - Follicle Studies Performed [facility] Work Phone: Comment on above: Once for 1 Occurrenc es starting 06/22/2024 until 06/22/2024 End: 06-24-2024 GERRY US Pelvis Limited Follicles - Follicle Studies Performed [facility] Work Phone: Comment on above: Once for 1 Occurrenc es starting 06/24/2024 until 06/24/2024 End: 08-14-2024 US Pelvis transvaginal [facility] Work Phone: Comment on above: Once for 1 Occurrenc es starting 08/14/2024 until 08/14/2024 End: 08-21-2024 US Pelvis transvaginal [facility] Work Phone: Comment on above: Once for 1 Occurrenc es starting 08/21/2024 until 08/21/2024 End: 06-19-2024 US Pelvis transvaginal [facility] Work Phone: Comment on above: Once for 1 Occurrenc es starting 06/19/2024 until 06/19/2024 End: 06-22-2024 US Pelvis transvaginal [facility] Work Phone: Comment on above: Once for 1 Occurrenc es starting 06/22/2024 until 06/22/2024 End: 06-24-2024 US Pelvis transvaginal [facility] Work Phone: Comment on above: Once for 1 Occurrenc es starting 06/24/2024 until 06/24/2024 [facility] Immunizations Immunization Date Immunization Notes Care Provider Audrey rahman 09-27-2022 influenza, injectabl e, quadrivalent, preservative free Marta Del Valle MD Work Phone: [facility] 09-27-2022 influenza quad vacci ne 0.5 ML Suspension Prefilled Syringe Marta Del Valle MD Work Phone: [facility] 09-27-2022 influenza virus vacc ine, unspecified formulation Gina Sahu APRN.[employer] Work Phone: [facility] 06-21-2021 influenza, injectabl e, quadrivalent, preservative free Faith Starkey MD Work Phone: [facility] 06-21-2021 influenza virus vacc ine, unspecified formulation Faith Starkey MD Work Phone: [facility] 05-03-2021 tetanus toxoid, redu mason diphtheria toxoid, and acellular pertussis vaccine, adsorbed Faith Starkey MD Work Phone: [facility] 02-04-2021 Covid (Pfizer) Dr. Steffen chao MD Work Phone: [facility] 01-14-2021 Covid (Pfizer) Dr. Steffen chao MD Work Phone: [facility] 09-07-2020 Influenza, injectabl e, Madin Winner Canine Kidney, preservative free, quadrivalent Dr. Steffen Eisenberg MD Work Phone: [facility] 07-23-2019 influenza, injectabl e, quadrivalent, preservative free Faith Starkey MD Work Phone: [facility] 07-23-2019 influenza virus vacc ine, unspecified formulation Faith Starkey MD Work Phone: [facility] 07-31-2018 influenza, injectabl e, quadrivalent, contains preservative [facility] 07-31-2018 influenza, injectabl e, quadrivalent, preservative free Dr. Steffen Eisenberg MD Work Phone: [facility] 07-31-2018 influenza virus vacc ine, unspecified formulation [facility] 08-27-2017 tetanus toxoid, redu mason diphtheria toxoid, and acellular pertussis vaccine, adsorbed [facility] 11-15-2016 Human Papillomavirus 9-valent vaccine [facility] 06-18-2016 Human Papillomavirus 9-valent vaccine [facility] 05-08-2016 Human Papillomavirus 9-valent vaccine [facility] 09-20-2015 influenza virus vacc ine, whole virus [facility] 09-20-2015 influenza, injectabl e, quadrivalent, preservative free Dr. Steffen Eisenberg MD Work Phone: [facility] 08-18-2014 influenza virus vacc ine, whole virus [facility] 08-18-2014 influenza, injectabl e, quadrivalent, preservative free Dr. Steffen Eisenberg MD Work Phone: [facility] 08-30-2013 influenza virus vacc ine, unspecified formulation [facility] Payers Date Payer Category Payer [employer] [facility] [id number] 2024 Unknown [id number] 2024 Self-pay 2023 Managed Care (Private) [facility] [id number]. [id number] 2022 Unknown [id number] 2022 Unknown [id number] 2021 Private Health Insurance 1.2 .840.534700.1.13.172.2. 7.3.313823.315 2021 Unknown [id number] 2021 Unknown [id number] 2017 Unknown [id number] 1.2.840.679591.1.13.172.2. 7.3.240990.315 2017 Unknown [id number] 2017 Unknown [id number] 1.2.840.214925.1.13.385.2. 7.3.878785.315 2014 Unknown [id number] 2003 Unknown 1.2.840.286048. 1.13.159.2. 7.3.741211.315 2003 Unknown [id number] 1989 Unknown [id number] 2.16.840.1.944164.3.579.2. 903 1989 Unknown [id number] 2.16.840.1.733338.3.579.2. 903 1989 Unknown [id number] 2.16.840.1.427759.3.579.2. 902 1989 Unknown [id number] 2.16.840.1.684961.3.579.2. 900 1989 Unknown [id number] 2.16.840.1.348281.3.579.2. 900 1989 Unknown [id number] 2.16.840.1.553957.3.579.2. 594 1989 Unknown [id number] 2.16.840.1.542604.3.579.2. 594 1989 Unknown [id number] 2.16.840.1.959523.3.579.2. 594 1989 Unknown [id number] 2.16.840.1.535292.3.579.2. 594 1989 Unknown [id number] 2.16.840.1.219036.3.579.2. 594 1989 Unknown [id number] 2.16.840.1.299043.3.579.2. 594 1989 Unknown [id number] 2.16.840.1.234262.3.579.2. 594 1989 Unknown [id number] 2.16.840.1.844746.3.579.2. 594 1989 Unknown [id number] 2.16.840.1.470227.3.579.2. 594 1989 Unknown [id number] 2.16.840.1.824614.3.579.2. 594 1989 Unknown [id number] 2.16.840.1.773659.3.579.2. 594 1989 Unknown [id number] 2.16.840.1.917547.3.579.2. 1242 1989 Unknown [id number] 2.16.840.1.425999.3.579.2. 1242 1989 Unknown [id number] 2.16.840.1.184706.3.579.2. 1242 1989 Unknown [id number] 2.16.840.1.163746.3.579.2. 1242 1989 Unknown [id number] 2.16.840.1.142949.3.579.2. 1242 1989 Unknown [id number] 2.16.840.1.055140.3.579.2. 1242 1989 Unknown [id number] 2.16.840.1.637019.3.579.2. 1242 1989 Unknown [id number] 2.16.840.1.729710.3.579.2. 1242 1989 Unknown [id number] 2.16.840.1.222082.3.579.2. 1244 1989 Unknown [id number] 2.16.840.1.853261.3.579.2. 1244 1989 Unknown [id number] 2.16.840.1.179025.3.579.2. 1244 1989 Unknown [id number] 2.16.840.1.406676.3.579.2. 1244 1989 Unknown [id number] 2.16.840.1.096535.3.579.2. 1244 1989 Unknown [id number] 2.16.840.1.168686.3.579.2. 1244 1989 Unknown [id number] 2.16.840.1.029003.3.579.2. 1244 1989 Unknown [id number] 2.16.840.1.906300.3.579.2. 1245 1989 Unknown [id number] 2.16.840.1.936082.3.579.2. 1245 1989 Unknown [id number] 2.16.840.1.645330.3.579.2. 1245 1989 Unknown [id number] 2.16.840.1.480991.3.579.2. 124 1989 Unknown [id number] 2.16.840.1.807446.3.579.2. 124 1989 Unknown [id number] 2.16.840.1.871560.3.579.2. 1245 1989 Unknown [id number] 2.16.840.1.457237.3.579.2. 479 1989 Unknown [id number] 2.16840.1.935055.3.579.2. 479 1989 Unknown [id number] 2.16.840.1.604868.3.579.2. 479 Unknown [id number] 2.16840.1.756507.3.579.2. 462 Unknown [id number] 2.16.840.1.936059.3.579.2. 462 Unknown [id number] 2.16840.1.361749.3.579.2. 462 Unknown [id number] 2.16.840.1.618926.3.579.2. 462 Unknown [id number] 2.16.840.1.209317.3.579.2. 462 Unknown [id number] 2.16.840.1.487656.3.579.2. 462 Unknown [id number] 2.16.840.1.939433.3.579.2. 462 Unknown [id number] 2.16840.1.389035.3.579.2. 462 Unknown [id number] 2.16.840.1.357867.3.579.2. 462 Unknown [id number] 2.16.840.1.360367.3.579.2. 462 Unknown [id number] 2.16.840.1.047440.3.579.2. 462 Unknown [id number] 2.16.840.1.542505.3.579.2. 462 Unknown [id number] 2.16.840.1.794649.3.579.2. 462 Unknown [id number] 2.16.840.1.367124.3.579.2. 462 Unknown [id number] 2.16840.1.196870.3.579.2. 462 Unknown [id number] 2.16.840.1.720869.3.579.2. 462 Unknown [id number] 2.840.1.075677.3.579.2. 462 Unknown [id number] 2.16840.1.677956.3.579.2. 462 Social History Date Type Detail Facility Start: 02-20-2012 End: 08-20-2018 Tobacco smoking status ALIS Never smoker [facility] Start: 1989 Sex Assigned At Not on file [facility] Start: 07-31-2018 End: 11-10-2024 Tobacco smoking status [facility] Former smoker [facility] Start: 10-01-2009 End: 10-01-2010 History of tobacco use Current smoker [facility] Start: 10-01-2009 End: 10-01-2010 History of tobacco use Cigarette Smoker [facility] Start: 07-31-2018 End: 01-12-2024 Cigarettes smoked current (pack per day) - Reported [facility] Start: 12-09-2013 Alcohol Comment 1-2 times per week, up to 2 glasses of wine at a time [facility] Start: 07-29-2019 End: 01-12-2024 Alcohol intake Current drinker of alcohol (finding) [facility] Start: 02-20-2012 End: 08-23-2020 Tobacco use and exposure Never used [facility] Start: 06-05-2024 End: 10-02-2024 Exposure to SARS-CoV-2 (event) Not sure [facility] Exposure to SARS-CoV -2 (event) [facility] Start: 07-31-2018 End: 01-12-2024 Alcohol intake Yes [facility] Start: 05-03-2021 End: 05-01-2023 Alcohol intake Ex-drinker (finding) [facility] Start: 12-09-2013 Alcohol Comment 1-2 times per week, up to 2 glasses of wine at a time [facility] Start: 10-21-2020 [facility] Start: 08-26-2022 End: 09-27-2022 Exposure to SARS-CoV-2 (event) Unable to assess [facility] Start: 11-04-2023 Tobacco smoking stat us ALIS Unknown if ever smoked [facility] Start: 1990 Sex Assigned At Female [facility] Start: 02-20-2012 Alcohol Comment occassional [facility] Depression Score 10 [facility] Gender identity Identifies as fe male gender (finding) [facility] Goals Date Patient Goal Desired Activity /State Personal health goal Personal health goal Comment on above: Formatting of this n ote might be different from the original. Goal weight 150 pounds Comment on above: Goal weight 150 poun ds Formatting of this n ote might be different from the original. Goal weight 150 pounds Mental Status Date Assessment Result Facility 11-10-2024 Cognitive function Voice/Name [facility] Work Phone: Clinical Notes 05-17-2021 to 02-26-2025 Note Date & Type Note Facility 02-26-2025 Progress note [facility] 11-05-2024 Evaluation note Diagnosis Onset Date Resolution AMA (advanced maternal age) multigravida 35+ acute November 052024 2:22pm Conceived by in vitro fertilization acute November 05 2:22pm Depression with anxiety acute F ebruary 2024 2:22pm Family history of genetic disorder acute February 6th, 2 025 2:22pm GERD (gastroesophageal reflux disease) acute November 05 2:22pm H/O section acute Febr [id number] 2:22pm Infertility associated with anovulation acute November 05, 2 025 2:22pm Marijuana use acute October 2:22pm Obesity affecting acute November 05 2:22pm PCOS (polycystic ovarian syndrome) acute November 05 2:22pm acute November 05, 2024 2:22pm Rh negative status during acute November 05, 025 2:22pm Sleep apnea acute November 05, 2024 2:22pm Supervision of high-risk acute November 05 2:22pm AMA (advanced maternal age) multigravida 35+ acute December 03, 2024 1:25pm Conceived by in vitro fertilization acute December 03, 2024 1:25pm Depression with anxiety acute [facility] 2024 1:25pm Family history of genetic disorder acute December 03, 2024 1:25pm GERD (gastroesophageal reflux disease) acute December 03, 2024 1:25pm H/O section acute 2024 1:25pm Infertility associated with anovulation acute December 03, 2024 1:25pm Marijuana use acute December 03, 2024 1:25pm Obesity affecting acute December 03, 2024 1:25pm PCOS (polycystic ovarian syndrome) acute December 03, 2024 1:25pm acute December 03 1:25pm Rh negative status during December 03, 2024 1:25pm Sleep apnea acute December 03 1:25pm Supervision of high-risk acute December 03, 2024 1:25pm AMA (advanced maternal age) multigravida 35+ acute January 01, 2025 10:03am Conceived by in vitro fertilization acute January 01, 2025 10:03am Depression with anxiety acute A pril 2024 10:03am Family history of genetic disorder acute January 01, 2025 10:03am GERD (gastroesophageal reflux disease) acute January 01, 2025 10:03am H/O section acute Apri l 2024 10:03am Infertility associated with anovulation acute January 01, 2025 10:03am Marijuana use acute January 01, 2025 10:03am Obesity affecting acute January 01, 2025 10:03am PCOS (polycystic ovarian syndrome) acute January 01, 2025 10:03am acute January 01 10:03am Rh negative status during acute January 01, 2025 10:03am Sleep apnea acute January 01 10:03am Supervision of high-risk acute January 01, 2025 10:03am AMA (advanced maternal age) multigravida 35+ acute January 29, 025 10:15am Conceived by in vitro fertilization acute January 29, 2025 10:15am Depression with anxiety acute M ay 2024 10:15am Family history of genetic disorder acute January 29, 2025 10:15am GERD (gastroesophageal reflux disease) acute January 29, 2025 10:15am H/O section acute January 29, 2025 10:15am Infertility associated with anovulation acute January 29, 2025 10:15am Marijuana use acute January 29 10:15am Obesity affecting acute January 29, 2025 10:15am PCOS (polycystic ovarian syndrome) acute January 29, 2025 10:15am acute January 29, 2025 10:15am Rh negative status during acute January 29, 2025 10:15am Sleep apnea acute January 29, 2025 10:15am Supervision of high-risk acute January 29, 2025 10:15am AMA (advanced maternal age) multigravida 35+ acute February 26, 2025 8:34am Conceived by in vitro fertilization acute February 26, 2025 8:34am Depression with anxiety acute M ay 2024 8:34am Family history of genetic disorder acute February 26, 2025 8:34am GERD (gastroesophageal reflux disease) acute February 26, 2025 8:34am H/O section acute February 26, 2025 8:34am Infertility associated with anovulation acute February 26, 2025 8:34am Marijuana use acute February 26, 2 025 8:34am Obesity affecting acute February 26, 2025 8:34am PCOS (polycystic ovarian syndrome) acute February 26, 2025 8:34am acute February 26, 2025 8:34am Rh negative status during acute February 26, 2025 8:34am Sleep apnea acute February 26 8:34am Supervision of high-risk acute February 26, 2025 8:34am [facility] Work Phone: 1(991) 848-439702-04-2025 NoteHNO ID: [id number] Author: DEMARCUS MINER PA-C Service: ? Author Type: Physician Employee Services Manager Type: Progress Notes Filed: 11/03/2024 16:55 Note Text: Telemedicine Visit - Distance Health Virtual Visit Note Patient seen on [employer] Video Visit platform. Location of patient: [place] I have communicated my name and active licensure. The patient's identity and physical location were verified at the time of this visit. Either the patient or their legal student services representative has been informed of the risks and benefits of -- and alternatives to -- treatment through a remote evaluation and consents to proceed with the evaluation remotely. CC: History of Present Illness Barby Caballero is a 34 year old female who presents for the past 3 days with symptoms that are:stable. Symptoms include: Positive for Cough, Negative for Fever Recent rapid at-home COVID test completed: No Sick contacts: denies Recent travel: denies /Lactating: : Yes: Lactating: No OTC meds/remedies that patient has tried: robutussin Pt is . PAST MEDICAL HISTORY Diagnosis Date NEGATIVE MEDICAL HISTORY PAST SURGICAL HISTORY Procedure Laterality Date EXTRACTION, ERUPTED TOOTH OR EXPOSED ROOT (ELEVATION AND/OR FORCEPS REMOVAL) 07/2010 FAMILY HISTORY Problem Relation Age of Onset Heart Maternal Grandfather Heart Mother Hypertension Mother Social History Tobacco Use Smoking status: Never Smokeless tobacco: Never Substance Use Topics Alcohol use: Yes Comment: occassional Drug use: No Current Outpatient Medications Medication Sig escitalopram oxalate (LEXAPRO) 10 mg tablet Take 1 tablet by mouth every afternoon. famotidine (PEPCID) 40 mg tablet PLUS DHA 27 mg iron-1 mg -312 mg-250 mg cmpk TAKE 1 TAB AND 1 CAPSULE BY MOUTH EVERY DAY albuterol HFA (PROVENTIL HFA, VENTOLIN HFA) 90 mcg/actuation inhaler Inhale 2 Puffs as instructed every 6 hours as needed for wheezing/shortness of breath. LANSOPRAZOLE ORAL Take by mouth. (Patient not taking: Reported on 01/12/2024) Desogestrel-Ethinyl Estradiol (VELIVET TRIPHASIC REGIMEN, 28,) 0.1/.125/.15-25 mg-mcg tablet Take 1 tablet by mouth once daily. (Patient not taking: Reported on 01/12/2024) No current facility-administered medications for this visit. ALLERGIES No Active Allergies Video Exam (Examination performed via Video enabled technology) General appearance: Alert, oriented, pleasant, in NAD: Yes Ill appearing: No Lethargic appearing: No Eyes: Sclera clear: Yes Conjunctiva without erythema: Yes Ears: Tragus / outer ear tenderness by self palpation: No Oropharynx: moist mucus membranes Frontal sinus tenderness by self palpation: No Maxillary sinus tenderness by self palpation: No Tender cervical adenopathy by self palpation: No Respiratory distress: No Coughing noted: Yes Audible wheezing noted: No ASSESSMENT/PLAN: 1. Viral URI with cough - ICD9: 465.9, ICD10: J06.9 - Discussed viral etiology and rationale for treatment. - Symptomatic treatment with prn analgesia - Supportive care with fluids and rest - The patient may also use OTC cough and cold meds as needed. - Follow up in 3-5 days if symptoms persist or sooner if worsening of symptoms IN person - Red flags discussed for need for in person care - All questions answered [facility]02-04-[facility]25 History of Present illness Narrative* Demarcus Miner PA-C - 11/03/2024 4:51 PM EST Telemedicine Visit - Distance Health Virtual Visit Note Patient seen on [employer] Video Visit platform. Location of patient: [place] I have communicated my name and active licensure. The patient's identity and physical location wereverified at the time of this visit. Either the patient or their legal student services representative has been informed of the risks and benefits of -- and alternatives to -- treatment through a remote evaluation andconsents to proceed with the evaluation remotely. CC: History of Present Illness Barby Caballero is a 34 year old female who presents for the past 3 days with symptoms that are:stable. Symptoms include: Positive for Cough, Negative for Fever Recent rapid at-home COVID test completed: No Sick contacts: denies Recent travel: denies /Lactating: : Yes: Lactating: No OTC meds/remedies that patient has tried: robutussin Pt is . PAST MEDICAL HISTORY Diagnosis Date NEGATIVE MEDICAL HISTORY PAST SURGICAL HISTORY Procedure Laterality Date EXTRACTION, ERUPTED TOOTH OR EXPOSED ROOT (ELEVATION AND/OR FORCEPS REMOVAL) 07/2010 FAMILY HISTORY Problem Relation Age of Onset Heart Maternal Grandfather Heart Mother Hypertension Mother Social History Tobacco Use Smoking status: Never Smokeless tobacco: Never Substance Use Topics Alcohol use: Yes Comment: occassional Drug use: No Current Outpatient Medications Medication Sig escitalopram oxalate (LEXAPRO) 10 mg tablet Take 1 tablet by mouth every afternoon. famotidine (PEPCID) 40 mg tablet PLUS DHA 27 mg iron-1 mg -312 mg-250 mg cmpk TAKE 1 TAB & 1 CAPSULE BY MOUTH EVERY DAY albuterol HFA (PROVENTIL HFA, VENTOLIN HFA) 90 mcg/actuation inhaler Inhale 2 Puffs as instructed every 6 hours as needed for wheezing/shortness of breath. LANSOPRAZOLE ORAL Take by mouth. (Patient not taking: Reported on 01/12/2024) Desogestrel-Ethinyl Estradiol (VELIVET TRIPHASIC REGIMEN, 28,) 0.1/.125/.15-25 mg-mcg tablet Take 1tablet by mouth once daily. (Patient not taking: Reported on 01/12/2024) No current facility-administered medications for this visit. ALLERGIES No Active Allergies Video Exam (Examination performed via Video enabled technology) General appearance: Alert, oriented, pleasant, in NAD: Yes Ill appearing: No Lethargic appearing: No Eyes: Sclera clear: Yes Conjunctiva without erythema: Yes Ears: Tragus / outer ear tenderness by self palpation: No Oropharynx: moist mucus membranes Frontal sinus tenderness by self palpation: No Maxillary sinus tenderness by self palpation: No Tender cervical adenopathy by self palpation: No Respiratory distress: No Coughing noted: Yes Audible wheezing noted: No ASSESSMENT/PLAN: 1. Viral URI with cough - ICD9: 465.9, ICD10: J06.9 - Discussed viral etiology and rationale for treatment. - Symptomatic treatment with prn analgesia - Supportive care with fluids and rest - The patient may also use OTC cough and cold meds as needed. - Follow up in 3-5 days if symptoms persist or sooner if worsening of symptoms IN person - Red flags discussed for need for in person care - All questions answered Demarcus Miner PA-C [facility] Note * Telephone Encounter - Marta Del Valle MD - 07/29/2024 5:17 PM EDT Due for yearly follow up - must be seen to get additional re [facility]2024 Miscellaneous Notes* Telephone Encounter - Marta Del Valle MD - 07/29/2024 5:17 PM EDT Due for yearly follow up - must be seen to get additional re documented in this encounterU [facility] NoteHNO ID: [id number] Author: GINA SAHU APRN.[employer] Service: ? Author Type: Nurse Practitioner Type: Progress Notes Filed: 01/12/2024 11:22 Note Text: CC: Patient presents with: Cough: Fevers x4 days HPI: Barby Caballero is a 33 year old female who presents to the office with complaint of cough, nonproductive and fever for a few days. Symptoms are worsening Associated symptoms includes nasal congestion and facial pain/pressure. Denies fever, nausea, vomiting , and diarrhea. Treatments tried include nothing so far. with no relief of symptoms. Sick contacts: unknown. History of asthma, frequent episodes of bronchitis, chronic bronchitis, bronchiectasis or COPD: No Smoker: No Seasonal/environmental allergies: No The ROS is otherwise negative. The patient's pmh, medications, allergies, and past visits are reviewed. PHYSICAL EXAM: BP 118/78 Pulse (!) 134 Temp 36.6 ?C (97.9 ?F) Resp 20 Wt 120.3 kg (265 lb 3.4 oz) LMP 04/01/2013 SpO2 100% General appearance: alert, cooperative, pleasant, in no acute distress Head: Normocephalic Eyes: EOM's intact, conjunctiva pink and moist, no icterus, sclera white, non-injected Ears: Right ear: External ear/canal- Normal, TM - erythematous, bulging. Left ear: External ear/canal- Normal, TM - clear with good landmarks Oropharynx:moist without lesions, No erythema, exudates or tonsillar hypertrophy. Heart: Negative. RRR without obvious murmur, gallop, or rubs. No ectopy. Lungs: clear to auscultation, without rales or wheeze, good air exchange PAST MEDICAL HISTORY Diagnosis Date NEGATIVE MEDICAL HISTORY PAST SURGICAL HISTORY Procedure Laterality Date EXTRACTION, ERUPTED TOOTH OR EXPOSED ROOT (ELEVATION AND/OR FORCEPS REMOVAL) 07/2010 ALLERGIES Patient has no active allergies. MEDICATIONS escitalopram oxalate (LEXAPRO) 10 mg tablet Take 1 tablet by mouth every afternoon. famotidine (PEPCID) 40 mg tablet PLUS DHA 27 mg iron-1 mg -312 mg-250 mg cmpk TAKE 1 TAB AND 1 CAPSULE BY MOUTH EVERY DAY amoxicillin (AMOXIL) 875 mg tablet Take 1 tablet by mouth two times a day for 7 days. albuterol HFA (PROVENTIL HFA, VENTOLIN HFA) 90 mcg/actuation inhaler Inhale 2 Puffs as instructed every 6 hours as needed for wheezing/shortness of breath. Inhalational Spacing Device 1 Device one time only for 1 dose. benzonatate (TESSALON PERLES) 100 mg capsule Take 1 capsule by mouth three times a day as needed for up to 7 days. LANSOPRAZOLE ORAL Take by mouth. (Patient not taking: Reported on 01/12/2024) Desogestrel-Ethinyl Estradiol (VELIVET TRIPHASIC REGIMEN, 28,) 0.1/.125/.15-25 mg-mcg tablet Take 1 tablet by mouth once daily. (Patient not taking: Reported on 01/12/2024) FAMILY HISTORY Problem Relation Age of Onset Heart Maternal Grandfather Heart Mother Hypertension Mother Social History Tobacco Use Smoking status: Never Smokeless tobacco: Never Substance Use Topics Alcohol use: Yes Comment: occassional Drug use: No ASSESSMENT/PLAN: 1. URI, acute - ICD9: 465.9, ICD10: J06.9 (primary diagnosis) 2. Acute otitis media, right - ICD9: 382.9, ICD10: H66.91 - AMOXICILLIN 875 MG TABLET 3. Acute cough - ICD9: 786.2, ICD10: R05.1 - ALBUTEROL SULFATE HFA 90 MCG/ACTUATION AEROSOL INHALER - BENZONATATE 100 MG CAPSULE Prescription instructions reviewed with patient as applicable. Potential red flag symptoms discussed with the patient. Reviewed appropriate action plan to take if red flag symptoms occur. Patient agreeable to treatment plan. Gina Sahu APRN.[facility]04-14-2024 History of Present illness Narrative* Gina Sahu APRN.[facility] - 01/12/2024 11:06 AM EDT CC: Patient presents with: Cough: Fevers x4 days HPI: Barby Caballero is a 33 year old female who presents to the office with complaint of cough, nonproductive and fever for a few days. Symptoms are worsening Associated symptoms includes nasal congestion and facial pain/pressure. Denies fever, nausea, vomiting , and diarrhea. Treatments tried include nothing so far. with no relief of symptoms. Sick contacts: unknown. History of asthma, frequent episodes of bronchitis, chronic bronchitis, bronchiectasis or COPD: No Smoker: No Seasonal/environmental allergies: No The ROS is otherwise negative. The patient's pmh, medications, allergies, and past visits are reviewed. PHYSICAL EXAM: BP 118/78 Pulse (!) 134 Temp 36.6 C (97.9 F) Resp 20 Wt 120.3 kg (265 lb 3.4 oz) LMP 04/01/2013 SpO2 100% General appearance: alert, cooperative, pleasant, in no acute distress Head: Normocephalic Eyes: EOM's intact, conjunctiva pink and moist, no icterus, sclera white, non-injected Ears: Right ear: External ear/canal- Normal, TM - erythematous, bulging. Left ear: External ear/canal- Normal, TM - clear with good landmarks Oropharynx:moist without lesions, No erythema, exudates or tonsillar hypertrophy. Heart: Negative. RRR without obvious murmur, gallop, or rubs. No ectopy. Lungs: clear to auscultation, without rales or wheeze, good air exchange PAST MEDICAL HISTORY Diagnosis Date NEGATIVE MEDICAL HISTORY PAST SURGICAL HISTORY Procedure Laterality Date EXTRACTION, ERUPTED TOOTH OR EXPOSED ROOT (ELEVATION AND/OR FORCEPS REMOVAL) 07/2010 ALLERGIES Patient has no active allergies. MEDICATIONS escitalopram oxalate (LEXAPRO) 10 mg tablet Take 1 tablet by mouth every afternoon. famotidine (PEPCID) 40 mg tablet PLUS DHA 27 mg iron-1 mg -312 mg-250 mg cmpk TAKE 1 TAB & 1 CAPSULE BY MOUTH EVERY DAY amoxicillin (AMOXIL) 875 mg tablet Take 1 tablet by mouth two times a day for 7 days. albuterol HFA (PROVENTIL HFA, VENTOLIN HFA) 90 mcg/actuation inhaler Inhale 2 Puffs as instructed every 6 hours as needed for wheezing/shortness of breath. Inhalational Spacing Device 1 Device one time only for 1 dose. benzonatate (TESSALON PERLES) 100 mg capsule Take 1 capsule by mouth three times a day as needed for up to 7 days. LANSOPRAZOLE ORAL Take by mouth. (Patient not taking: Reported on 01/12/2024) Desogestrel-Ethinyl Estradiol (VELIVET TRIPHASIC REGIMEN, 28,) 0.1/.125/.15-25 mg-mcg tablet Take 1tablet by mouth once daily. (Patient not taking: Reported on 01/12/2024) FAMILY HISTORY Problem Relation Age of Onset Heart Maternal Grandfather Heart Mother Hypertension Mother Social History Tobacco Use Smoking status: Never Smokeless tobacco: Never Substance Use Topics Alcohol use: Yes Comment: occassional Drug use: No ASSESSMENT/PLAN: 1. URI, acute - ICD9: 465.9, ICD10: J06.9 (primary diagnosis) 2. Acute otitis media, right - ICD9: 382.9, ICD10: H66.91 - AMOXICILLIN 875 MG TABLET 3. Acute cough - ICD9: 786.2, ICD10: R05.1 - ALBUTEROL SULFATE HFA 90 MCG/ACTUATION AEROSOL INHALER - BENZONATATE 100 MG CAPSULE Prescription instructions reviewed with patient as applicable. Potential red flag symptoms discussed with the patient. Reviewed appropriate action plan to take if red flag symptoms occur. Patient agreeable to treatment plan. Gina Sahu APRN.LEXII documented in this encounterC[facility] Procedure [facility]04-12-2023 History of Present illness Narrative* Lynne Landaverde - 01/09/2023 9:00 AM EDT Patient offered a medical turret lathe tender for sensitive exam. Pt declined documented in this encounterSelect [facility] History of Present illness Narrative* Maile Bobby - 09/27/2022 9:40 AM EST Patient endorses the following symptoms (negative unless marked positive): General Chest Muscle/Bone/Nerve Fatigue Chest pain x Joint pain Fevers Palpitations Muscle aches Night sweats Cough Weakness Feeling ill Shortness of breath Numbness Weight loss/gain Wheezing Head/Eyes Abdomen Mental Health x Headaches Nausea/Vomiting Feeling sad Dizziness x Heartburn x Feeling anxious Stiff neck Constipation Thoughts of hurting Eye pain/discharge Diarrhea self or others Vision change/concern Blood in BM s Ears/Nose/Throat Urinary Skin Hearing concern Pain with urination Rash Ear pain Difficulty urinating Skin growth/lesion Runny nose Incontinence Dry skin Sore throat Blood in urine Itchy skin * Marta Del Valle MD - 09/27/2022 9:40 AM EST History of Present Illness Chief Complaint Patient presents with Physical Breast Problem Medication Refill All medications Pumped x 1 year Stopped in May - would like breast exam as baseline Then coaching on how to do it Breasts were identical twins now they are fraternal twins - R breast hangs a bit lower than L If she keeps a bra on - doesn't leak If she wears shirt - has abrahan a dot on her shirt - R > L Mood good - Lexapro def helps Famotidine helping reflux - rarely has sx if she takes this Needs refill of PNV - they are thinking about trying for another kiddo Son has WCC next month - he has 78 words Preventive Health Summary (Female) Cardiovascular Health Blood pressure 114/72 Cholesterol Ordered 09/27/2022 Antiplatelet therapy Diabetes Ordered 09/27/2022 Obesity Estimated body mass index is 42.84 kg/m as calculated from the following: Height as of this encounter: 1.581 m (5' 2.25). Weight as of this encounter: 107.1 kg (236 lb 2 oz). Cancer screening Colon Discuss at 45 Breast Discuss at 40 Cervical 09/05/22 Immunizations and HIV Screening Influenza Has had Pneumococcal Tetanus HPV Pertussis Hepatitis A & B Shingles Meningococcal Hepatitis C Screening HIV Screening Immunization History Administered Date(s) Administered COVID-19 vaccine, mRNA, Pfizer, 0.3 ML 01/14/2021, 02/04/2021 HPV Vaccine, Nonavalent 05/08/2016, 06/18/2016, 11/15/2016 Influenza Vaccine 08/18/2014, 09/20/2015 Influenza Vaccine 0.5ml 08/30/2013 Influenza, injectable, quadrivalent, preservative free 07/23/2019, 06/21/2021, 09/27/2022 Tdap Vaccine 08/27/2017, 05/03/2021 influenza, injectable, quadrivalent 07/31/2018 Preventing Bone Fractures Osteoporosis Fall Risk Assessment Mental Health Depression Better on Lexapro Substance Abuse denies Vision Glaucoma Macular degeneration Cataracts Yearly eye exam, wears glasses Advanced Directives Living Will Health care POA Code status Has both Got 11/30/19 Wears seatbelt Feels safe in relationships Patient Active Problem List Diagnosis Dysmenorrhea GERD (gastroesophageal reflux disease) Well adult exam MELINA (generalized anxiety disorder) Hemorrhoids Palpitation Disordered eating Elevated C-reactive protein (CRP) Rh negative state in antepartum period Mother currently breast-feeding Sore nipples due to Acute cholecystitis Review of Systems Vitals: Blood pressure 114/72, pulse 113, height 1.581 m (5' 2.25), weight 107.1 kg (236 lb 2 oz),SpO2 99 %, not currently . Physical Exam Exam conducted with a turret lathe tender present. Constitutional: General: She is not in acute distress. Appearance: Normal appearance. She is not ill-appearing, toxic-appearing or diaphoretic. HENT: Head: Normocephalic and atraumatic. Cardiovascular: Rate and Rhythm: Normal rate and regular rhythm. Heart sounds: No murmur heard. No friction rub. No gallop. Pulmonary: Effort: Pulmonary effort is normal. Breath sounds: Normal breath sounds. No wheezing, rhonchi or rales. Chest: Breasts: Right: Normal. Left: Normal. Comments: Normal dense breast tissue Abdominal: General: There is no distension. Palpations: Abdomen is soft. There is no mass. Tenderness: There is no abdominal tenderness. There is no guarding or rebound. Lymphadenopathy: Upper Body: Right upper body: No axillary adenopathy. Left upper body: No axillary adenopathy. Skin: General: Skin is warm and dry. Neurological: General: No focal deficit present. Mental Status: She is alert and oriented to person, place, and time. Psychiatric: Mood and Affect: Mood normal. Behavior: Behavior normal. Thought Content: Thought content normal. Judgment: Judgment normal. Neurological Exam Mental Status Alert. Oriented to person, place, and time. Ambulatory Behavioral [facility] Screening Tools 09/27/2022 09/27/2022 09/27/2022 Little interest or pleasure in doing things 1 - 1 Feeling down, depressed, or hopeless 0 - 0 Trouble falling or staying asleep, or sleeping too much 0 - 0 Feeling tired or having little energy 2 - 2 Poor appetite or overeating 2 - 2 Feeling bad about yourself or that you are a failure or have let yourself or your family down 1 - 1 Trouble concentrating on things such as reading the newspaper or watching television 0 - 0 Moving or speaking so slowly that other people could have noticed 0 - 0 Thoughts that you would be better off or hurting yourself in some way 0 - 0 PHQ-9 Total Score (Interpretation of Total Score 1-4 = Minimal depression; 5-9 = Mild depression; 10-14 = Moderate depression; 15-19 = Moderately severe depression) 6 - 6 If you checked off any problems, how difficult have these problems made it for you to do your work,take care of things at home, or get along with other people? Not difficult at all - - Feeling nervous, anxious or on edge - 1 - Not being able to stop or control worrying - 1 - Worrying too much about different things - 1 - Trouble relaxing - 1 - Being so restless that it is hard to sit still - 0 - Becoming easily annoyed or irritable - 1 - Feeling afraid as if something awful might happen - 1 - MELINA-7 Total Score - 6 - Assessment and Plan ICD-10-CM 1. Well adult exam Z00.00 LIPID PANEL WITH REFLEX TO MEASURED LDL HEMOGLOBIN A1C Vit-Fe Fumarate-FA ( Plus) 27-1 MG tablet 2. Prolonged O92.79 TSH W/FT4 REFLEX PROLACTIN E-CONSULT TO MEDICINE 3. Need for influenza vaccination Z23 influenza quad vaccine 0.5 ML Suspension Prefilled Syringe FLU VACCINE SINGLE DOSE QUADRIVALENT 4. MELINA (generalized anxiety disorder) F41.1 Escitalopram 10 MG tablet 5. Gastroesophageal reflux disease without esophagitis K21.9 famotidine 40 MG tablet 6. Recurrent major depressive disorder, in full remission F33.42 Escitalopram 10 MG tablet Return in about 1 year (around 09/27/2023) for physical / med refill . MELINA / MDD - PHQ-9 of 6 and MELINA-7 of 6 - sx well controlled on escitalopram - continue this. GERD: Well controlled on famotidine - continue this Prolonged - suspect normal spotting ~ 3 months after discontinuing pumping but will send e consult for communications specialist to ensure no additional work up indicated. Normal breast exam, normal TFTs and prolactin documented in this encounterOSU [facility] NoteSatisfactory For Evaluation; Endocervical/Transformation Zone Component Present.[facility] HospitalComment on above:Order Comment: Patient'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Performed By: #### THINP #### [facility] (DEFAULT) [address] [place] [address] [phone] History of Present illness Narrative* Faith Starkey MD - 09/05/2022 1:30 PM EST Subjective: Barby Caballero is a 31 y.o. female here for routine exam. Current Complaints: none. Personal Health Questionnaire Reviewed: yes One year old at home, pumped and had great supply, no longer pumping but still has supply in freezer. Had urgent L/S mellissa 08/2021 Gynecologic History Patient'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 Contraception: rhythm method Menstrual History: does not have regular menses but never has had, feels they are back to normal for her. Used Letrozole to conceive first . Sexually Active: yes- with no associated pain Last Pap: normal 2019 will do today Last Mammogram: not indicated Last Dexa Scan: not indicated Last Colonoscopy: not indicated Preconceptual: ovulates about cycle day 24 using home test kits and bleeding 14 days later discussed trying spontaneously given predictable ovulation just later in cycle, if not successful consider Letrozole. Did have significant pubic symphysis separation with first , better after PT. Would lean toward scheduled repeat 39 wk section. May try again starting in the new year. Obstetric History OB History 1 Para 1 Term 1 0 AB 0 Living 1 SAB 0 IAB 0 Ectopic 0 Molar 0 Multiple 0 Live Births 1 Obstetric Comments No abn paps, has had HPV vaccine Patient's medications, allergies, past medical, surgical, social and family histories were reviewedand updated as appropriate. Review of Systems Constitutional: negative Eyes: negative Ears, nose, mouth, throat, and face: negative Respiratory: negative Cardiovascular: negative Gastrointestinal: negative Genitourinary:negative Integument/breast: negative Hematologic/lymphatic: negative Musculoskeletal:negative Neurological: negative Behvioral/Psych: negative All other systems reviewed and were negative. Objective: BP 124/70 (BP Location: Right arm, BP Position: Sitting) Ht 5' 2 (1.575 m) Wt 232 lb (105.2 kg) BMI 42.43 kg/m Smoking Status Former General: Alert, no distress Head: Normocephalic, without obvious abnormality Oropharynx: Normal findings Neck: No adenopathy thyroid not enlarged, symmetric, no tenderness/mass/nodules Back: negative Lungs: Clear to auscultation bilaterally Breasts normal appearance, no masses or tenderness Heart: Regular rate and rhythm, S1, S2 Normal, no murmur, click, rub or gallop Abdomen: Soft, non-tender, no masses, no organomegaly Pelvic: External genitalia normal, Vagina normal without discharge, cervix normal in appearance, uterus normal size, shape, and consistency, no adnexal masses or tenderness, rectovaginal septum normal, exam limited by body habitus, urethral meatus normal without prolapse, Urethra normal and non tender, bladder without tenderness or palpable masses, Normal anus and perineum Extremities: Extremities normal, atraumatic, no cyanosis or edema Pulse: Not performed Skin: Skin color, texture, turgor normal. No rashes, or lesions Neurologic: Grossly normal Lymph Nodes: Cervical, supraclavicular, and axillary nodes normal Assessment: Healthy female exam Plan: 1. Pap performed Follow Up: Return for Routine Exam in one year. documented in this encounterSelect [facility] Miscellaneous Notes* Addendum Note - Chris Whitney MA - 09/05/2022 1:30 PM ESTAddended by: CHRIS WHITNEY on: 09/05/2022 02:34 PM Modules accepted: Orders * Addendum Note - Faith Starkey MD - 09/05/2022 1:30 PM ESTAddended by: FAITH STARKEY on: 09/05/2022 03:03 PM Modules accepted: [facility]* Addendum Note - Chris Whitney MA - 09/05/2022 1:30 PM ESTAddended by: CHRIS WHITNEY on: 09/05/2022 02:34 PM Modules accepted: Orders [facility]12-07-2022 Note* Addendum Note - Faith Starkey MD - 09/05/2022 1:30 PM ESTAddended by: FAITH STARKEY on: 09/05/2022 03:03 PM Modules accepted: Orders [facility]08-18-2021 History of Present illness Narrative* Faith Starkey MD - 05/17/2021 2:00 PM EDT Subjective: Barby Caballero is being seen today for her obstetrical visit. She is at 31w5d. Patient reports was able to get scheduled with PT. 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 Objective: Assessment: 31w5d Plan: 1. Has US in 3 weeks 2. RTC 2-4 weeks documented [facility]* Diagnosis Supervision of normal first , antepartum- Primary [facility] Diagnosis Well woman exam with routine gynecological exam- Primary Routine gynecological examination [facility]* Diagnosis Well adult exam- Primary Routine general medical examination at a health care facility Prolonged Unspecified disorder of , unspecified as to episode of care Need for influenza vaccination Need for prophylactic vaccination and inoculation against influenza MELINA (generalized anxiety disorder) Generalized anxiety disorder Gastroesophageal reflux disease without esophagitis Esophageal reflux Recurrent major depressive disorder, in full remission [facility]* Diagnosis Breast pain, right Mastodynia [facility]* Diagnosis Onset Date Resolution Status Infertility associated with anovulation acute PCOS (polycystic ovarian syndrome) acute Encounter for routine gynecological examination noneactive PCOS (polycystic ovarian syndrome) acute [facility] Work Phone: Evaluation note* Diagnosis URI, acute- Primary Acute upper respiratory infections of unspecified site Acute otitis media, right Unspecified otitis media Acute cough [facility] Diagnosis Encounter for assisted reproductive fertility procedure cycle documented in this encounter [facility] Work Phone: Evaluation note* Diagnosis Encounter for assisted reproductive fertility procedure cycle documented in this encounter [facility] Work Phone: Evaluation note* Diagnosis Encounter for assisted reproductive fertility procedure cycle documented in this encounter [facility] Work Phone: Evaluation note* Diagnosis Encounter for assisted reproductive fertility procedure cycle documented in this encounter [facility] Work Phone: Evaluation note* Diagnosis Encounter for test, result positive (HHS-HCC) documented in this encounter [facility] Work Phone: Evaluation note* Diagnosis Encounter for test, result positive (HHS-HCC) documented in this encounter [facility] Work Phone: Evaluation note* Diagnosis Viral URI with cough- Primary Acute upper respiratory infections of unspecified site [facility] Attachments The following attachments cannot be sent through Care Everywhere. * Breast Health ([facility]) (Turkish) * Breast Self-Exam (Turkish) documented in this encounterOS[facility] note Author Apple Lao [facility] Note Date/Time February 26, 2025 9:38a m [facility] [address] [place] [address], [address] [place] [address] OFFICE VISIT Date of Service: 02/26/25 MR#: [id number] Acct: [id number] Name: BARBY CABALLERO Rep #: [id number] : 1990 Provider: Dr. Frank Lao MD Age/Sex: 34/F Location: [facility] [place] Status: Signed Intake Vital Signs 10/09/24 14:36 01/01/25 10:10 01/29/25 10:30 02/26/25 08:45 Height 5 ft 2 in 5 ft 2 in 5 ft 2 in 5 ft 2 in Weight: 262 lb 2 oz 261 lb 4 oz 264 lb 2 oz BMI 47.9 47.7 48.3 BP 125/82 H 114/81 H 102/66 Intake Visit Reasons: 28 WK OB/GLUCOSE *DOC ONLY* Leasing Property Manager Required: No Is patient in pain?: No Allergies No Known Allergies Allergy (Verified 02/26/25 08:50) Medications ?Medication ?Instructions ?Recorded ?Confirmed ?Type escitalopram oxalate 10 mg tablet 10 mg PO DAILY #30 t abs 07/20/24 02/26/25 Rx (Lexapro) docosahexaenoic acid 200 mg 200 mg PO DAILY #90 caps 1 02/26/25 Rx capsule ( DHA) levothyroxine 25 mcg tablet 25 mcg PO QDAY #90 tabs 02/26/25 Rx (Synthroid) promethazine 25 mg tablet 25 mg PO Q6H PRN headache #3 0 tabs 12/17/24 02/26/25 Rx famotidine 40 mg tablet (Pepcid) 40 mg PO DAILY #30 ta bs 01/11/25 02/26/25 Rx breast pump #1 ea 01/29/25 02/26/25 Rx Last Menstrual Period: 08/12/24 Zika: Zika virus screening: Negative : No PFSH PFSH Medical History PCOS (polycystic ovarian syndrome) Infertility Depression with anxiety GERD (gastroesophageal reflux disease) Surgical History H/O successful vaginal after , currently H/O section History of surgical procedure S/P cholecystectomy S/P S/P wisdom tooth extraction Family History Mother Hypertension Grandfather Heart disease Hypertension Diabetes Cancer Macular degeneration Grandmother Macular degeneration Social History adopted: No household members: spouse and children housing: house number of children: 1 current occupational status: unemployed current occupation: [employer] current occupational exposures/hazards: No 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) pets and animals: cat(s) history of recent travel: Yes ([place] for IVF) out of state: Yes sexually active: Yes Smoking Status: Former smoker quit date: 09/30/21 alcohol intake: current alcohol intake frequency: holidays/special occasions only details: Not while substance use type: former substance user Date of last use: May 2024 and marijuana diet: vegetarian well-balanced diet: about half the time caffeine: Yes Type: carbonated beverages Number of servings: 1 eating out: 4 or more times/week during the past year weight has: remained stable what type of physical activity do you participate in: none landon/anabaptist: None seatbelt use: always do you feel safe at home: Yes additional social history: : 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) History 2 Elective abortions Hx Para 1 Spontaneous abortions Hx # Term Pregnancies 1 Ectopic pregnancies Hx # Pregnancies Multiple births # of living children 1 Past Pregnancies Del. Date Name GA/Weeks Outcome Route Bth Weight Infant Gen Labor Lgth Anesthesia Del Locatn Provider FOB 07/18/21 Larry 40 live - full term 7lbs 7oz Male [facility] [place] Delivery Date: 07/18/21 Last Updated by: Aida Shields RN Induce d/t failure to progress naturally .. Slow progression of labor w/ decels .. Failed vacuum delivery into emergency csec HPI 28 WK OB/GLUCOSE *DOC ONLY* Details: BARBY CABALLERO is a 34 year old who presents for routine OB visit. OB Visit ANTONIO Calculator Estimated Delivery Date Method Current WG Current Estimate 05/19/25 Conception 28w 2d Expected Delivery Route/Plan repeat c/s Specific Issue/Plans Covid status: [] Flu vaccine: [] Tdap vaccine: [] Rhogam: [] LARC form signed: [] Problem list reviewed and updated with the most current plan of care details and appropriate orders placed. Relevant counseling for the gestational age provided. Continue routine care and follow up unless otherwise noted in visit notes/problem list details Initial Weight: 264 lb Date -?-?-?-?-?-?-?-?-?-?-?-?- EGA Weight BP Urine Prot -?-?-?-?-?-?-?-?-?-?-?-?- Glucose FHR FuHt Pres Dilation -?-?-?-?-?-?-?-?-?-?-?-?- Effaced St Visit Note 10/09/24 -?-?-?-?-?-?-?-?-?-?-?-?- 8w 2d 264 lb (+0 oz) 120/76 -?-?-?-?-?-?-?-?-?-?-?-?- 169 -?-?-?-?-?-?-?-?-?-?-?-?- KW-CRL cons with embryo transfer. declines NIPT had genetic testing at [facility] 11/05/24 -?-?-?-?-?-?-?-?-?-?-?-?- 12w 1d 260 lb (-4 lb) 125/89 Negative -?-?-?-?-?-?-?-?-?-?-?-?- Negative 165 -?-?-?-?-?-?-?-?-?-?-?-?- JV- pt to stop p rogesterone today. start baby asa for bmi and ama. 12/03/24 -?-?-?-?-?-?-?-?-?-?-?-?- 16w 1d 262 lb 6 oz (-1 lb 10 oz) 120/82 -?-?-?-?-?-?-?-?-?-?-?-?- 147 -?-?-?-?-?-?-?-?-?-?-?-?- JV- anatomy scan scheduled for 12/28. no cramping or spotting. + round ligament pain. JV- anatomy scan scheduled f or 12/28. no cramping or spotting. + round ligament pain. was in er for tachycardia that turned bradycardia and experience a vasovagal responds and passed out. ekg and labs were normal. will call if experiences this again and will need to consult cardiology. 01/01/25 -?-?-?-?-?-?-?-?-?-?-?-?- 20w 2d 262 lb 2 oz (-1 lb 14 oz) 125/82 Negative -?-?-?-?-?-?-?-?-?-?-?-?- Negative 130 -?-?-?-?-?-?-?-?-?-?-?-?- SM- no vb lof go od fm had anatomy scan, echo scan 01/29/25 -?-?-?-?-?-?-?-?-?-?-?-?- 24w 2d 261 lb 4 oz (-2 lb 12 oz) 114/81 -?-?-?-?-?-?-?-?-?-?-?-?- 134 -?-?-?-?-?-?-?-?-?-?-?-?- jV- working with counselor about ptsd from last delivery. worried about her weight. we talked this through and reassured. no cramping or dec fm or lof. 02/26/25 -?-?-?-?-?-?-?-?-?-?-?-?- 28w 2d 264 lb 2 oz (+2 oz) 102/66 Negative -?-?-?-?-?-?-?-?-?-?-?-?- Negative 155 30 -?-?-?-?-?-?-?-?-?-?-?-?- Sm- no vb lof go od fm nreo gualr ctx cbc gct today ACOG First Trimester First Trimester: Discussed Second Trimester Second Trimester: Signs and Symptoms of Labor, Selecting a care provider, Reproductive Life Planning & Contreception, Care Planning, Depression/Anxiety and Intimate Partner Violence; Discussed Tobacco Cessation Third Trimester Third Trimester: Pain Management Plans, Labor support person(s), Immediate Larc, Signs and Symptoms of Preeclampsia, Infant Feeding No , [employer] Education and Family Medical Leave or Disability Forms Office Procedures Injections Is this a patient provided medication?: No Office Meds RhoGAM Ultra-Filtered PLUS 1,500 unit (300 mcg) intramuscular syringe Performing Provider: Apple Lao MD Performing Location: [facility] Administered by: Aziza Olson on 02/26/25 08:56 Dose Route Admin Location Dispensed Lot Number Expiration Date [facility] Administrative Underwriter 1,500 unit IM right gluteal 1 ea [id number] 03/05/27 [id number] [facility] Results POC Urinalysis 2 Dip (Clinic) Office Urine Glucose Negative Last Edit by Aziza Olson on 02/26/25 08:58 Office Urine Protein Negative Last Edit by Aziza Olson on 02/26/25 08:58 Coding Level of Care Code OB Routine Diagnoses H/O section Z98.891 AMA (advanced maternal age) multigravida 35+ O09.529 Conceived by in vitro fertilization Z78.9 Family history of genetic disorder Z84.89 Marijuana use F12.90 Obesity affecting O99.210 Rh negative status during O26.899; Z67.91 Supervision of high-risk O09.90 28 weeks gestation of Z3A.28 Weeks of gestation: 28 weeks Sleep apnea G47.30 Infertility associated with anovulation N97.0 Gastroesophageal reflux disease without esophagitis K21.9 Esophagitis presence: without esophagitis Depression with anxiety F41.8 PCOS (polycystic ovarian syndrome) E28.2 Assessment and Plan Assessment and Plan (1) H/O section: Status: Acute Comment: x1, 2020. desires repeat C/S (2) AMA (advanced maternal age) multigravida 35+: Status: Acute (3) Conceived by in vitro fertilization: Status: Acute Comment: growth and NSTs at 36 weeks. deliver by 39. Transferred male embryo - embryo tested (4) Family history of genetic disorder: Status: Acute Comment: FOB w/ Shaw Muscular Dystrophy (X Chromosome linked) FOB adopted with limited medical history (5) Marijuana use: Status: Acute Comment: Last use: May 2024; Pt informed of random tox screens (6) Obesity affecting : Status: Acute Comment: BMI 47.5; BPPs at 34 weeks-HgBA1C ordered (7) Rh negative status during : Status: Acute Comment: B-, Needs Rhogam @ 28 weeks (8) Supervision of high-risk : Status: Acute Comment: PRR, , ANTONIO 05/19/25,boy PC: Larry, : [place] (9) : Status: Acute Qualifiers: Weeks of gestation: 28 weeks Qualified Code(s): Z3A.28 - 28 weeks gestation of Comment: Discussed genetic/carrier testing - declines d/t embryo tested prior to transfer, nl anatomy. echo normal. (10) Sleep apnea: Status: Acute (11) Infertility associated with anovulation: Status: Acute (12) GERD (gastroesophageal reflux disease): Status: Acute Qualifiers: Esophagitis presence: without esophagitis Qualified Code(s): K21.9 - Gastro-esophageal reflux disease without esophagitis (13) Depression with anxiety: Status: Acute (14) PCOS (polycystic ovarian syndrome): Status: Acute Orders: Orders Rhogam Injection Today O26.899 - Other specified related conditions, unspecified trimester, Z67.91 - Unspecified blood type, Rh negative POC Urinalysis 2 Dip (Clinic) Today 02/26/25 0938 <Electronically signed by Apple brown MD> Date _ Apple Lao MD Cosigner Signature: Date (if applicable) CC: ~ [facility] Work Phone: Renunw for referral (narrative)No reason for referral information availableSequoia Hospital Work Phone: Reason for visit Narrative* Imaging (Routine) - Authorized Specialty Diagnoses / Procedures Referred By Contac t Referred To Contact Radiology Diagnoses Encounter for assisted reproductive fertility procedure cycle Procedures US PELVIS TRANSABDOMINAL WITH TRANSVAGINAL Levon Braxton MD [address] [place] [address] Phone: tel: fax: Referral ID Status Reason Start Date Expiration Date Visits Requested Visits Authorized [id number] Authorized Perform Procedure 4 08/13/2025 1 1 [facility] Work Phone: Reason for visit Narrative* Imaging (Routine) - Authorized Specialty Diagnoses / Procedures Referred By Adia vicente Referred To Contact Radiology Diagnoses Encounter for assisted reproductive fertility procedure cycle Procedures US PELVIS TRANSABDOMINAL WITH TRANSVAGINAL Levon Braxton MD [address] [place] [address] Phone: tel: fax: Referral ID Status Reason Start Date Expiration Date Visits Requested Visits Authorized [id number] Authorized Perform Procedure 4 08/14/2025 1 1 [facility] Work Phone: Reason for visit Narrative* Imaging (Routine) - Authorized Specialty Diagnoses / Procedures Referred By Contac t Referred To Contact Radiology Diagnoses Encounter for test, result positive (HHS-HCC) Procedures US PELVIS OB TRANSABDOMINAL W TRANSVAGINAL UP TO 1ST TRIMESTER Levon Braxton MD [address] [place] [address] Phone: tel: fax: Referral ID Status Reason Start Date Expiration Date Visits Requested Visits Authorized [id number] Authorized Perform Procedure 4 09/15/2025 1 1 [facility] Work Phone: Reason for visit Narrative* Imaging (Routine) - Authorized Specialty Diagnoses / Procedures Referred By Contac t Referred To Contact Radiology Diagnoses Encounter for test, result positive (HHS-HCC) Procedures US PELVIS OB TRANSABDOMINAL W TRANSVAGINAL UP TO 1ST TRIMESTER Levon Braxton MD [address] [place] [address] Phone: tel: fax: Referral ID Status Reason Start Date Expiration Date Visits Requested Visits Authorized [id number] Authorized Perform Procedure 4 09/25/2025 1 1 [facility] Work Phone: History of Present Illness * Janes Gutiérrez MD - 08/20/2018 9:07 AM EST Formatting of this note may be different from the original. [facility] [address] [place] [id number] Hematology and Oncology Progress Note Patient Name: Barby Caballero MR #: [id number] : 1990 Date of Service: 08/20/18 Clinician: Janes Gutiérrez MD DIAGNOSIS Leukocytosis, etiology unknown. Dictation on: 08/20/2018 9:09 AM by: JANES GUTIÉRREZ [[id number]] History of Present Illness: Ms. Barby Caballero is a 27-year, pleasant, female with no chronic medical illness. She wasseen by her family physician as a routine checkup in early July. The CBC was obtained which revealed leukocytosis with white blood count of 13.9, but hemoglobin 13.3, platelet count of 440. Differential revealed neutrophils 64, lymphocytes 26%. Clinically, she is doing well, asymptomatic. She denies any history of chronic inflammatory processsuch as inflammatory bowel disease or arthritis. 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 For some reason, her CRP has been high over the last year. By reviewing her chart, she had leukocytosis for almost a year now. She is not on any steroid product. Dictation on: 08/20/2018 9:36 AM by: JANES GUTIÉRREZ [[id number]] Allergies Allergen Reactions Amoxicillin Diarrhea and GI Intolerance Past Medical History: Diagnosis Date Anxiety MELINA Dysmenorrhea Eating Disorder Elevated C-reactive protein (CRP) Gallbladder polyp GERD (gastroesophageal reflux disease) Hemorrhoids Leukocytosis Palpitations Past Surgical History: Procedure Laterality Date WRIST FRACTURE SURGERY Social History Social History Marital status: Single Spouse name: N/A Number of children: N/A Years of education: N/A Occupational History Not on file. Social History Main Topics Smoking status: Never Smoker Smokeless tobacco: Not on file Alcohol use Yes Drug use: Unknown Sexual activity: Not on file Other Topics Concern Not on file Social History Narrative No narrative on file Family History Problem Relation Age of Onset Hypertension Mother History Drug use: Unknown History Smoking Status Never Smoker Smokeless Tobacco Not on file Prior to Admission medications Medication Sig Start Date End Date Taking? Authorizing Provider escitalopram oxalate (LEXAPRO) 10 MG tablet Take 10 mg by mouth. 07/31/18 Yes Historical Provider, hydrOXYzine (VISTARIL) 25 MG capsule Take 25 mg by mouth. 07/30/17 Yes Historical Provider, pantoprazole (PROTONIX) 40 MG tablet Take 40 mg by mouth. 07/31/18 Yes Historical Provider, VELIVEEduardo TRIPHASIC REGIMEN, 28, 0.1/.125/.15-25 mg-mcg tablet 02/26/15 Yes Historical Provider, omeprazole (PRILOSEC) 20 MG capsule Take 20 mg by mouth daily. Historical Provider, Last Height and Weight with BMI: 103.6 kg (228 lb 6.4 oz) 5' 2 Body mass index is 41.77 kg/m . Review of Systems Constitutional: Negative for appetite change, chills, fatigue and fever. HENT: Negative for congestion, nosebleeds and sore throat. Eyes: Negative for photophobia and visual disturbance. Respiratory: Negative for apnea, cough, chest tightness, shortness of breath and wheezing. Cardiovascular: Negative for chest pain and palpitations. Gastrointestinal: Negative for abdominal distention, abdominal pain, constipation, diarrhea, nauseaand vomiting. Endocrine: Negative for polydipsia, polyphagia and polyuria. Genitourinary: Negative for dysuria, flank pain, frequency, hematuria and urgency. Musculoskeletal: Negative for back pain, joint swelling and myalgias. Skin: Negative for pallor and rash. Allergic/Immunologic: Negative. Neurological: Negative for dizziness, tremors, seizures, syncope, weakness, light-headedness and numbness. Hematological: Negative for adenopathy. Does not bruise/bleed easily. Psychiatric/Behavioral: Negative for behavioral problems, confusion and sleep disturbance. The patient is not nervous/anxious. BP 120/86 (BP Location: Left arm) Pulse (!) 118 Temp 98.1 ?F (36.7 ?C) (Temporal) Ht 5' 2 Wt 103.6 kg (228 lb 6.4 oz) BMI 41.77 kg/m Physical Exam Constitutional: She is oriented to person, place, and time. She appears well- developed and well-nourished. No distress. HENT: Head: Normocephalic and atraumatic. Nose: Nose normal. Mouth/Throat: Oropharynx is clear and moist. No oropharyngeal exudate. Eyes: Pupils are equal, round, and reactive to light. Conjunctivae and EOM are normal. Right eye exhibits no discharge. Left eye exhibits no discharge. No scleral icterus. Neck: Normal range of motion. Neck supple. No JVD present. No thyromegaly present. Cardiovascular: Normal rate, regular rhythm and normal heart sounds. Exam reveals no gallop and no friction rub. No murmur heard. Pulmonary/Chest: Effort normal and breath sounds normal. No respiratory distress. She has no wheezes. She has no rales. Abdominal: Soft. Bowel sounds are normal. She exhibits no distension, no ascites and no mass. Thereis no hepatosplenomegaly. There is no tenderness. There is no rebound and no guarding. Musculoskeletal: Normal range of motion. She exhibits no edema or tenderness. Lymphadenopathy: She has no cervical adenopathy. Neurological: She is alert and oriented to person, place, and time. She has normal strength. No cranial nerve deficit or sensory deficit. Coordination and gait normal. Skin: Skin is warm. No rash noted. No erythema. No pallor. Psychiatric: She has a normal mood and affect. Her behavior is normal. Labs and Diagnostic Tests: Pertinent latest labs and diagnostic studies reviewed in EMR and discussed with patient. Assessment and Plan: A 27-year-old pleasant female with no chronic medical illness presented with leukocytosisand mild thrombocytosis. The etiology is unknown. Dictation on: 08/20/2018 9:37 AM by: JANES GUTIÉRREZ [[id number]] Orders Placed This Encounter CBC and Differential Janes Gutiérrez MD CC: Marta Del Valle MD in this encounter* Janes Gutiérrez MD - 01/22/2020 1:48 PM EDT [facility] [address] [facility] [id number] Hematology and Oncology Progress Note Patient Name: Barby Caballero MR #: [id number] : 1990 Date of Service: 02/18/2019 Clinician: Janes Gutiérrez MD DIAGNOSIS Leukocytosis, etiology unknown. Negative for BCR/ABL gene expression. History of Present Illness: Ms. Barby Caballero is a 28-year, pleasant, female with no chronic medical illness. She wasseen by her family physician as a routine checkup in early July. The CBC was obtained which revealed leukocytosis with white blood count of 13.9, but hemoglobin 13.3, platelet count of 440. Differential revealed neutrophils 64, lymphocytes 26%. Clinically, she is doing well, asymptomatic. She denies any history of chronic inflammatory processsuch as inflammatory bowel disease or arthritis. 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 For some reason, her CRP has been high over the last year. By reviewing her chart, she had leukocytosis for almost a year now. She is not on any steroid product. INTERVAL HISTORY Barby came today for followup and to go over her recent blood test. She was seen in my office 6 month ago. She has been doing well. The test came back negative. She is clinically asymptomatic. 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 CBC stable with WBC 5.15, Hgb 13.5 and plt of 402k. Allergies Allergen Reactions Amoxicillin Diarrhea and GI Intolerance Past Medical History: Diagnosis Date Anxiety MELINA Dysmenorrhea Eating disorder Elevated C-reactive protein (CRP) Gallbladder polyp GERD (gastroesophageal reflux disease) Hemorrhoids Leukocytosis Palpitations Past Surgical History: Procedure Laterality Date WRIST FRACTURE SURGERY Social History Socioeconomic History Marital status: Single Spouse name: Not on file Number of children: Not on file Years of education: Not on file Highest education level: Not on file Occupational History Not on file Social Needs Financial resource strain: Not on file Food insecurity Worry: Not on file Inability: Not on file Transportation needs Medical: Not on file Non-medical: Not on file Tobacco Use Smoking status: Never Smoker Smokeless tobacco: Never Used Substance and Sexual Activity Alcohol use: Yes Drug use: Not on file Sexual activity: Not on file Lifestyle Physical activity Days per week: Not on file Minutes per session: Not on file Stress: Not on file Relationships Social connections Talks on phone: Not on file Gets together: Not on file Attends mosque service: Not on file Active member of club or organization: Not on file Attends meetings of clubs or organizations: Not on file Relationship status: Not on file Other Topics Concern Not on file Social History Narrative Not on file Family History Problem Relation Age of Onset Hypertension Mother Social History Substance and Sexual Activity Drug Use Not on file Social History Tobacco Use Smoking Status Never Smoker Smokeless Tobacco Never Used Prior to Admission medications Medication Sig Start Date End Date Taking? Authorizing Provider escitalopram oxalate (LEXAPRO) 10 MG tablet Take 10 mg by mouth. 07/31/18 Yes Historical Provider, hydrOXYzine (VISTARIL) 25 MG capsule Take 25 mg by mouth. 07/30/17 Yes Historical Provider, pantoprazole (PROTONIX) 40 MG tablet Take 40 mg by mouth. 07/31/18 Yes Historical Provider, VELIVEEduardo TRIPHASIC REGIMEN, 28, 0.1/.125/.15-25 mg-mcg tablet 02/26/15 Yes Historical Provider, omeprazole (PRILOSEC) 20 MG capsule Take 20 mg by mouth daily. Historical Provider, Last Height and Weight with BMI: 105.5 kg (232 lb 9.6 oz) 5' 2 Body mass index is 42.54 kg/m . Review of Systems Constitutional: Negative for appetite change, chills, fatigue and fever. HENT: Negative for congestion, nosebleeds and sore throat. Eyes: Negative for photophobia and visual disturbance. Respiratory: Negative for apnea, cough, chest tightness, shortness of breath and wheezing. Cardiovascular: Negative for chest pain and palpitations. Gastrointestinal: Negative for abdominal distention, abdominal pain, constipation, diarrhea, nauseaand vomiting. Endocrine: Negative for polydipsia, polyphagia and polyuria. Genitourinary: Negative for dysuria, flank pain, frequency, hematuria and urgency. Musculoskeletal: Negative for back pain, joint swelling and myalgias. Skin: Negative for pallor and rash. Allergic/Immunologic: Negative. Neurological: Negative for dizziness, tremors, seizures, syncope, weakness, light-headedness and numbness. Hematological: Negative for adenopathy. Does not bruise/bleed easily. Psychiatric/Behavioral: Negative for behavioral problems, confusion and sleep disturbance. The patient is not nervous/anxious. BP (!) 143/96 (BP Location: Left arm) Pulse (!) 109 Temp 98.4 F (36.9 C) (Temporal) Ht 5' 2 Wt 105.5 kg (232 lb 9.6 oz) BMI 42.54 kg/m Physical Exam Constitutional: She is oriented to person, place, and time. She appears well- developed and well-nourished. No distress. HENT: Head: Normocephalic and atraumatic. Nose: Nose normal. Mouth/Throat: Oropharynx is clear and moist. No oropharyngeal exudate. Eyes: Pupils are equal, round, and reactive to light. Conjunctivae and EOM are normal. Right eye exhibits no discharge. Left eye exhibits no discharge. No scleral icterus. Neck: Normal range of motion. Neck supple. No JVD present. No thyromegaly present. Cardiovascular: Normal rate, regular rhythm and normal heart sounds. Exam reveals no gallop and no friction rub. No murmur heard. Pulmonary/Chest: Effort normal and breath sounds normal. No respiratory distress. She has no wheezes. She has no rales. Abdominal: Soft. Bowel sounds are normal. She exhibits no distension, no ascites and no mass. Thereis no hepatosplenomegaly. There is no abdominal tenderness. There is no rebound and no guarding. Musculoskeletal: Normal range of motion. General: No tenderness or edema. Lymphadenopathy: She has no cervical adenopathy. Neurological: She is alert and oriented to person, place, and time. She has normal strength. No cranial nerve deficit or sensory deficit. Coordination and gait normal. Skin: Skin is warm. No rash noted. No erythema. No pallor. Psychiatric: She has a normal mood and affect. Her behavior is normal. Labs and Diagnostic Tests: Pertinent latest labs and diagnostic studies reviewed in EMR and discussed with patient. Assessment and Plan: A 28-year-old pleasant female with no chronic medical illness presented with leukocytosisand mild thrombocytosis. The etiology is unknown. She is clinically asymptomatic. BCR/ABL gene expression came back negative.I will see her back in 6months. Repeat CBC with differential. Orders Placed This Encounter CBC and Differential Janes Gutiérrez MD CC: Marta Del Valle MD documented in this encounter* Will Prabhakar MD - 08/23/2020 9:30 AM EST Barby Caballero is a 29 y.o. female who presents with Chief Complaint Rash; Skin Lesion HPI Rash Additional comments: Deep painful red bumps since 02/16 when she stopped OCP that she had been on for 12 years. Stopped in order to get . Not associate with oiliness. Not having regular cyclesyet. 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 (History) Past Medical History: Diagnosis Date Anxiety MELINA Arthritis Dysmenorrhea Eating disorder Elevated C-reactive protein (CRP) Gallbladder polyp GERD (gastroesophageal reflux disease) Hemorrhoids Leukocytosis Palpitations No past medical history pertinent negatives. Family History Cancer-related family history includes Melanoma in her paternal aunt. Physical Examination The following areas were examined and found to be within normal limits: general appearance, mood/affect, orientation, neck, eyes/eyelids, lips/gums, chest, back, L arm, R arm, L leg and R leg Pertinent positive PE findings can be found below under each dx. I reviewed and verified the portions of the chief complaint and history documented by the ancillarystaff on 08/23/2020. Review of Systems Negative for: other skin complaints, fever/chills and unexpected weight loss Assessment and Plan *Acne Vulgaris - (new problem). Etiology and possible chronic nature explained. Treatment options with emphasis on benefits and possible common side effects explained. Start OTC BP wash; Finacea 15% gel BID; categories of medicines explained and encouraged to discontinue when she thinks she is . Pertinent PE: 1+ erythematous papules/pustules with <1+ open and closed comedones face *Intradermal Nevus Benign appearance explained. ABCDE's of melanoma reviewed. Return if changes. Sun protection including the use of OTC sunscreen was encouraged. Pertinent PE: Uniformly pigmented papule left upper abdomen Return in 1 year. Will Prabhakar MD 08/23/2020 documented in this encounter* Marli Thompson PA-C - 07/27/2020 10:40 AM EDT Patient Name: [facility] Location: Barby Caballero [address] [place] [address] Date Of : Date Of Visit: 1990 07/27/2020 MRN# Provider: [id number] Marli Thompson PA-C Chief Complaint Patient presents with Fever aches, diarrhea, nausea, exposed to COVID. sx starting Saturday night Assessment & Plan 1. Close Exposure to Covid-19 Virus POC COVID-19 Molecular 2. Generalized body aches 3. Diarrhea, unspecified type No follow-ups on file. Medical Decision Making Pt presents with symptoms suggestive of a viral illness No known close exposure to COVID19 Vitals stable and exam reassuring POC COVID19 testing was negative; discussed results with pt OTC recommendations for supportive treatment discussed All questions answered; pt feels comfortable managing care at home at this time. Additional Clinical Comments Discussed over the counter medications for symptomatic management and side effects of medications. Recommended taking all medications with food and to stop medications if they develop any signs of anallergic reaction. Educated patient and/or guardian about signs and symptoms that would warrant further immediate evaluation. Recommended that they should return to urgent care, make an appointment with their family physician, or go to the emergency room if symptoms persist or get acutely worse. Recommended follow upwithin the next week with their PCP or to get established with a PCP soon in order to follow up appropriately. Influenza Immunization Patient declined influenza immunization. Refusal documented in the chart under Health Maintenance. [facility] COVID-19 Mask Status: Does the patient have classic COVID-19 symptoms? Yes, the patient has COVID-19 symptoms, the patient WAS wearing a mask during the visit and I (the provider) WAS wearing full PPE (N95 mask, gown, gloves, and face shield) during the visit. Subjective 29 y.o. female presents with Fever (aches, diarrhea, nausea, exposed to COVID. sx starting Saturday night) URI This is a new problem. The current episode started in the past 7 days. Maximum temperature: 99.5. Associated symptoms include coughing, diarrhea, headaches and nausea. Pertinent negatives include no abdominal pain, chest pain, congestion, rash, sore throat or vomiting. VAMSI tested +COVID19 Saturday (3 days ago) She was last around him 10 days ago (Saturday prior to him testing positive) Review Of Systems Review of Systems Constitutional: Positive for diaphoresis and fever (subjective). HENT: Negative for congestion and sore throat. Respiratory: Positive for cough and shortness of breath. Cardiovascular: Negative for chest pain. Gastrointestinal: Positive for diarrhea and nausea. Negative for abdominal pain and vomiting. Musculoskeletal: Positive for myalgias. Skin: Negative for rash. Neurological: Positive for light-headedness and headaches. Negative for dizziness. Denies loss of smell or taste Psychiatric/Behavioral: The patient is nervous/anxious. Medical History Past Medical History: Diagnosis Date Anxiety MELINA Dysmenorrhea Eating disorder Elevated C-reactive protein (CRP) Gallbladder polyp GERD (gastroesophageal reflux disease) Hemorrhoids Leukocytosis Palpitations Past Surgical History: Procedure Laterality Date WRIST FRACTURE SURGERY There is no problem list on file for this patient. Social History Social History Tobacco Use Smoking status: Never Smoker Smokeless tobacco: Never Used Substance Use Topics Alcohol use: Yes Drug use: Not on file Family History Family History Problem Relation Age of Onset Hypertension Mother Objective Physical Exam BP 132/88 Pulse (!) 108 Temp 99.2 F (37.3 C) (Tympanic) Resp 16 Wt 102.9 kg (226 lb 14.4 oz) SpO2 98% BMI 41.50 kg/m Vision/Hearing Exam:No exam data present Physical Exam Vitals signs and nursing note reviewed. Constitutional: Appearance: She is well-developed. She is not toxic-appearing. HENT: Head: Normocephalic and atraumatic. Right Ear: External ear normal. Left Ear: External ear normal. Nose: Nose normal. Mouth/Throat: Pharynx: No pharyngeal swelling or posterior oropharyngeal erythema. Comments: Uvula midline; no stridor, trismus, drooling, or voice changes noted. Eyes: Conjunctiva/sclera: Conjunctivae normal. Pupils: Pupils are equal, round, and reactive to light. Neck: Musculoskeletal: Normal range of motion and neck supple. Cardiovascular: Rate and Rhythm: Regular rhythm. Tachycardia present. Pulmonary: Effort: Pulmonary effort is normal. No respiratory distress. Breath sounds: Normal breath sounds. Comments: No conversational dyspnea Abdominal: Palpations: Abdomen is soft. Musculoskeletal: Normal range of motion. Skin: General: Skin is warm and dry. Neurological: Mental Status: She is alert and oriented to person, place, and time. Psychiatric: Behavior: Behavior normal. Procedure Notes Procedures Results Recent Results (from the past 168 hour(s)) POC COVID-19 Molecular Collection Time: 07/27/20 10:55 AM Specimen: Nasopharyngeal; Swab Result Value Ref Range SARS-CoV-2 Not Detected Not Detected Internal Control Pass No orders to display Orders Placed This Visit Orders Placed This Encounter Procedures POC COVID-19 Molecular Medication List At End Of Visit Current Outpatient Medications Medication Sig Dispense Refill escitalopram oxalate (LEXAPRO) 10 MG tablet Take 10 mg by mouth daily . famotidine (PEPCID) 40 MG tablet vit 27-lagk-qsmno-dha ( + DHA) 28 mg iron- 975 mcg-200 mg Cmpk Take 1 capsule by mouth daily . hydrOXYzine (VISTARIL) 25 MG capsule Take 25 mg by mouth 3 (three) times a day as needed . ondansetron (Zofran ODT) 4 MG disintegrating tablet Dissolve 1 (one) tablet (4 mg total) on top of tongue every 6 (six) hours as needed for nausea . 12 tablet 0 pantoprazole (PROTONIX) 40 MG tablet Take 40 mg by mouth daily . VELIVET TRIPHASIC REGIMEN, 28, 0.1/.125/.15-25 mg-mcg tablet Take 1 tablet by mouth daily . No current facility-administered medications for this visit. Patient Instructions -get plenty of rest -drink plenty of fluids -you can use OTC Chloraseptic spray as well as warm salt water gargles for sore throat -you can taking OTC cough suppressant such as Dextromethorphan Robitussin, Delsym +/- Guaifenesin (Mucinex) for cough -you can take OTC antihistamine such as Zyrtec or Claritin +/- Pseudoephedrine (Sudafed) for congestion -you can try OTC Pepto Bismol for stomach upset -You can take ibuprofen 600-800mg every 8 hours +/- acetaminophen 1000mg every 6 hours for any painor discomfort. You may alternate between the two medications every 4 hours for better coverage. *do not exceed more than 4000mg of acetaminophen per 24 hours and do not exceed more than 3200mg ibuprofen per 24 hours -vitamins C, D and Zinc have been shown to help fight Upper Respiratory Illnesses If symptoms worsen or new symptoms develop (fevers not responding to medication, confusion, severe shortness of breath, chest pain, inability to keep liquids down, weakness, abdominal pain), please go immediately to ED for further evaluation [facility] COVID-19 Post-swabbing Instructions We will do our best to update you as soon as we receive your test results, but if we had to send your test to be run at the lab, you may see the results on [employer] or receive a call from [facility] before we are able to contact you. You should receive a call from our COVID-19 results provider as soon as possible. If you test POSITIVE for COVID-19: Isolate until: - it has been 10 days since you developed symptoms AND - you have been without a fever (100.4 F) for at least 24 hours without the use of fever reducing medication AND - your symptoms are improving Isolation is when you test positive for COVID-19 and is meant to keep the infected person away fromall others, even in their own home. If you live with others, stay in a specific sick room or area and away from other people or animals, including pets. Use a separate bathroom, if available. Seek emergency medical care immediately if you develop worsening warning signs including: - trouble breathing - persistent pain or pressure in the chest - new confusion - inability to wake or stay awake - bluish lips or face It is not recommended by the CDC to have another COVID-19 test done in order to discontinue isolation or return to work/school. We can provide return to work and school documentation as needed. If you test NEGATIVE for COVID-19: If you are under a 14 day quarantine because of significant exposure defined as close contact with someone that has a laboratory confirmed infection from COVID- 19 or that person was diagnosed by a medical professional, then a negative COVID-19 test does not clear you from the 14 day quarantine. Youwere likely not clinically infectious at the time of the test. This does not mean that you will notget sick and develop symptoms. It is possible that you were in the early phase of the infection at the time of your test and you could be positive later. For these reasons: 1) If the test was due to having symptoms WITH significant exposure, you should remain in quarantine: - for the full 14 days AND - you have been without a fever (100.4 F) for at least 24 hours without the use of fever reducing medication AND - your symptoms are improving If you are unable to separate yourself completely from the COVID-19 positive person (i.e. parent caring for a child), CDC guidelines recommend you quarantine for 24 days (10 days from symptom onset of the COVID positive person PLUS 14 additional days). 2) If the test was due to symptoms WITHOUT significant exposure, you may return to work/school if: - you have been without a fever (100.4 F) for at least 24 hours without the use of fever reducing medication AND - your symptoms are improving When Do I Self-Quarantine? You should quarantine if you have had a significant exposure which is defined as having been in close contact (as defined below) with someone that has a laboratory confirmed infection from COVID-19 or that person was diagnosed by a medical professional. This includes contact within 48 hours prior to when the COVID-19 positive person developed symptoms. - Quarantine is used to keep someone who might have been exposed to COVID-19 away from others. - Quarantine helps prevent spread of disease that can occur before a person knows they are sick or if they are infected with the virus without feeling symptoms. - People in quarantine should stay home, separate themselves from others, monitor their health, andfollow directions from their state or local health department. What counts as close contact? - You were within 6 feet of someone who has COVID-19 for at least 15 minutes - You provided care at home to someone who is sick with COVID-19 - You had direct physical contact with the person (touched, hugged, or kissed them) - You shared eating or drinking utensils - They sneezed, coughed, or somehow got respiratory droplets on you When and How Will I Get Results? Results will be available anywhere from 1-5 days after your specimen is collected. The provider/practice who placed the order for your test will notify you of your results. - If you have an active [employer] account, and your COVID-19 test is negative (not detected), then you will be notified through your [employer] account. You should call the urgent care if you have any further questions. - If your COVID-19 test is positive (detected), you will receive a phone call to discuss your results and answer any questions you might have at that time. Please make sure [facility] has your updated phone number so we can contact you. [facility] will notify the [place] Department of Health of any positive results to comply with state regulations. What Happens After I Get Tested if I Develop Worsening COVID-19 Symptoms? All patients should self-quarantine at home until they receive their test results. While self-quarantining, contact your PCP or return to the urgent care if you develop any of the following: - A fever of 103 degrees F (39.4 C) or higher - A fever that lasts more than 3 days without medication - A fever that returns after being gone for more than 24 hours - Chest pain or difficulty breathing - A worsening of current symptoms For work concerns, please contact your employer's HR department. How Do I Self-Quarantine? - Stay home until 14 days after last exposure and maintain social distance (at least 6 feet) from others at all times - Avoid contact with people at higher risk for severe illness from COVID-19 - Self-monitor for symptoms: - Check temperature twice a day - Watch for fever (100.4F or higher), cough, shortness of breath, or other CDC recognized symptoms of COVID-19 If I test positive, what about those with which I have had close contact (household members, partners, close friends, etc)? Anyone with close contact (as defined above) within 48 hours prior to when the COVID-19 positive person developed symptoms should self-quarantine for 14 days as above. What Do I Do If I am Sick? Stay Home: If you are sick, stay home from work, school, public places, and social gatherings Social Distance: maintain 6 feet of distance from other people. Monitor Your Symptoms: If you develop fever, shortness of breath, confusion, or any respiratory symptoms, please notify your doctor immediately Cover Your Cough: Cough and sneeze into your shirt sleeve or inner elbow. Do not cough into your hands or into the air. If available, cough into a tissue and throw it into a trash can. Wash Your Hands: Wash hands often with soap and warm water and/or alcohol based hand track laying machine operator, scrubbing your hands for at least 20 seconds. Wash your hands after sneezing or coughing, after going to the bathroom, and before eating or drinking. Wear a Mask: Wear a face mask when around others. Always wear a face mask (if able) if you have to leave your home Don't Touch: avoid touching your eyes, nose, and mouth Don't Share: avoid sharing items with others as they can spread infection Call First: If you do need to seek urgent medical care, call the facility first to let them know you are on your way Other COVID Questions? CDC - https://www.cdc.gov/coronavirus/2019-ncov/index.html - https://www.cdc.gov/coronavirus/2019-ncov/vh-deo-niv-sick/quarantine.html [facility] - Website: https://coronavirus.[place].gov/wps/portal/gov/covid-19/home - Hotline: 451-3-EOC-ODH (999-135-5820) [facility]: https://blog.Scan/series/elwck-83-igmnppkvgbz-toolkit/ documented in this encounter* Janes Gutiérrez MD - 08/19/2019 11:05 AM EST [facility] [address] [facility] [address] [facility] [id number] Hematology and Oncology Progress Note Patient Name: Barby Caballero MR #: [id number] : 1990 Date of Service: 08/19/19 Clinician: Janes Gutiérrez MD DIAGNOSIS Leukocytosis, etiology unknown. Negative for BCR/ABL gene expression. History of Present Illness: Ms. Barby Caballero is a 28-year, pleasant, female with no chronic medical illness. She wasseen by her family physician as a routine checkup in early July. The CBC was obtained which revealed leukocytosis with white blood count of 13.9, but hemoglobin 13.3, platelet count of 440. Differential revealed neutrophils 64, lymphocytes 26%. Clinically, she is doing well, asymptomatic. She denies any history of chronic inflammatory processsuch as inflammatory bowel disease or arthritis. 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 For some reason, her CRP has been high over the last year. By reviewing her chart, she had leukocytosis for almost a year now. She is not on any steroid product. INTERVAL HISTORY Barby came today for followup and to go over her recent blood test. She was seen in my office 6 months ago for leukocytosis and thrombocytosis. EWe obtained a PCR for BCR/ABL gene expression in the past which came back negative. She is clinically asymptomatic except having a cold with coughing for the last 2-3 days. No fever or chills. Still working multimedia specialist. Dictation on: 08/19/2019 11:07 AM by: JANES GUTIÉRREZ [[id number]] Allergies Allergen Reactions Amoxicillin Diarrhea and GI Intolerance Past Medical History: Diagnosis Date Anxiety MELINA Dysmenorrhea Eating disorder Elevated C-reactive protein (CRP) Gallbladder polyp GERD (gastroesophageal reflux disease) Hemorrhoids Leukocytosis Palpitations Past Surgical History: Procedure Laterality Date WRIST FRACTURE SURGERY Social History Socioeconomic History Marital status: Single Spouse name: Not on file Number of children: Not on file Years of education: Not on file Highest education level: Not on file Occupational History Not on file Social Needs Financial resource strain: Not on file Food insecurity Worry: Not on file Inability: Not on file Transportation needs Medical: Not on file Non-medical: Not on file Tobacco Use Smoking status: Never Smoker Smokeless tobacco: Never Used Substance and Sexual Activity Alcohol use: Yes Drug use: Not on file Sexual activity: Not on file Lifestyle Physical activity Days per week: Not on file Minutes per session: Not on file Stress: Not on file Relationships Social connections Talks on phone: Not on file Gets together: Not on file Attends mosque service: Not on file Active member of club or organization: Not on file Attends meetings of clubs or organizations: Not on file Relationship status: Not on file Other Topics Concern Not on file Social History Narrative Not on file Family History Problem Relation Age of Onset Hypertension Mother Social History Substance and Sexual Activity Drug Use Not on file Social History Tobacco Use Smoking Status Never Smoker Smokeless Tobacco Never Used Prior to Admission medications Medication Sig Start Date End Date Taking? Authorizing Provider escitalopram oxalate (LEXAPRO) 10 MG tablet Take 10 mg by mouth. 07/31/18 Yes Historical Provider, hydrOXYzine (VISTARIL) 25 MG capsule Take 25 mg by mouth. 07/30/17 Yes Historical Provider, pantoprazole (PROTONIX) 40 MG tablet Take 40 mg by mouth. 07/31/18 Yes Historical Provider, VELIVET TRIPHASIC REGIMEN, 28, 0.1/.125/.15-25 mg-mcg tablet 02/26/15 Yes Historical Provider, omeprazole (PRILOSEC) 20 MG capsule Take 20 mg by mouth daily. Historical Provider, Last Height and Weight with BMI: 96.4 kg (212 lb 9.6 oz) 5' 2 Body mass index is 38.89 kg/m . Review of Systems Constitutional: Negative for appetite change, chills, fatigue and fever. HENT: Negative for congestion, nosebleeds and sore throat. Eyes: Negative for photophobia and visual disturbance. Respiratory: Negative for apnea, cough, chest tightness, shortness of breath and wheezing. Cardiovascular: Negative for chest pain and palpitations. Gastrointestinal: Negative for abdominal distention, abdominal pain, constipation, diarrhea, nauseaand vomiting. Endocrine: Negative for polydipsia, polyphagia and polyuria. Genitourinary: Negative for dysuria, flank pain, frequency, hematuria and urgency. Musculoskeletal: Negative for back pain, joint swelling and myalgias. Skin: Negative for pallor and rash. Allergic/Immunologic: Negative. Neurological: Negative for dizziness, tremors, seizures, syncope, weakness, light-headedness and numbness. Hematological: Negative for adenopathy. Does not bruise/bleed easily. Psychiatric/Behavioral: Negative for behavioral problems, confusion and sleep disturbance. The patient is not nervous/anxious. BP 135/84 (BP Location: Right arm) Pulse (!) 106 Temp 98.2 F (36.8 C) (Temporal) Ht 5' 2 Wt 96.4 kg (212 lb 9.6 oz) BMI 38.89 kg/m Physical Exam Constitutional: She is oriented to person, place, and time. She appears well- developed and well-nourished. No distress. HENT: Head: Normocephalic and atraumatic. Nose: Nose normal. Mouth/Throat: Oropharynx is clear and moist. No oropharyngeal exudate. Eyes: Pupils are equal, round, and reactive to light. Conjunctivae and EOM are normal. Right eye exhibits no discharge. Left eye exhibits no discharge. No scleral icterus. Neck: Normal range of motion. Neck supple. No JVD present. No thyromegaly present. Cardiovascular: Normal rate, regular rhythm and normal heart sounds. Exam reveals no gallop and no friction rub. No murmur heard. Pulmonary/Chest: Effort normal and breath sounds normal. No respiratory distress. She has no wheezes. She has no rales. Abdominal: Soft. Bowel sounds are normal. She exhibits no distension, no ascites and no mass. Thereis no hepatosplenomegaly. There is no abdominal tenderness. There is no rebound and no guarding. Musculoskeletal: Normal range of motion. General: No tenderness or edema. Lymphadenopathy: She has no cervical adenopathy. Neurological: She is alert and oriented to person, place, and time. She has normal strength. No cranial nerve deficit or sensory deficit. Coordination and gait normal. Skin: Skin is warm. No rash noted. No erythema. No pallor. Psychiatric: She has a normal mood and affect. Her behavior is normal. Labs and Diagnostic Tests: Pertinent latest labs and diagnostic studies reviewed in EMR and discussed with patient. Assessment and Plan: A 28-year-old pleasant female with no chronic medical illness presented with leukocytosisand mild thrombocytosis. The etiology is unknown. She is clinically asymptomatic. BCR/ABL gene expression came back negative. Dictation on: 08/19/2019 11:08 AM by: JANES GUTIÉRREZ [[id number]] Orders Placed This Encounter famotidine (PEPCID) 40 MG tablet hydrOXYzine (VISTARIL) 25 MG capsule Janes Gutiérrez MD CC: Marta Del Valle MD documented in this encounter Assessments Diagnosis Leukocytosis, unspecified ty pe - Primary Diagnosis Epigastric pain- Primary Abdominal pain, epigastric Diagnosis Leukocytosis, unspecified type Diagnosis Acne vulgaris- Primary Other acne Dermal nevus of abdominal wall Diagnosis Close Exposure to Covid-19 Virus- Primary Generalized body aches Diarrhea, unspecified type Diagnosis Abdominal pain, unspecified abdominal location- Primary Chest pain, unspecified type Leukocytosis, unspecified type Discharge Instructions * Attachments The following attachments cannot be sent through Care Everywhere. * Abdominal Pain (Turkish) documented in this encounter* Instructions* Laurent Duque MD - 03/19/2019 Continue taking your home medications as prescribed. Follow-up with your family doctor first available appointment. Return to the emergency room for any worsening symptoms or concerns * Attachments The following attachments cannot be sent through Care Everywhere. * Abdominal Pain (Turkish) * Chest Pain (Turkish) documented in this encounter Advance Directives No Advanced Directives Records FoundDocuments on File Type Date Recorded Patient Undercover Cop Expl anation Advance Directives and Livin g Will 07/29/2019 10:42 AM Documents on File Type Date Recorded Patient Undercover Cop Expl anation Advance Directives and Livin g Will 08/19/2019 10:42 AM Documents on File Type Date Recorded Patient Undercover Cop Expl anation Advance Directives and Livin g Will 03/19/2019 10:42 AM Latest Code Status on File Code Status Date Activated Date Inactivated Comments Full Code 07/18/2021 9:28 AM Code Status History Code Status Date Activated Date Inactivated Comments Full Code 07/16/2021 10:11 PM 07/18/2021 9:28 AM Latest Code Status on File Code Status Date Activated Date Inactivated Comments Full Code 07/18/2021 9:28 AM Code Status History Code Status Date Activated Date Inactivated Comments Full Code 07/16/2021 10:11 PM 07/18/2021 9:28 AM Date Activated Date Inactivated Comments 07/18/2021 9:28 AM Date Activated Date Inactivated Comments 07/16/2021 10:11 PM 07/18/2021 9:28 AM Advance Directive Response Recorded Date/ Time Living Will No November 10 8:21pm Do you have a Healthcare Power of Business Asst? No November 10, 2024 8:21pm Summary Purpose Family History No Family History Records Found Relationship Condition Age at Onset Recorded Date/T sherri mother Hypertension Unknown grandfather Cardiac disease Unknown Hypertension Unknown Diabetes mellitus Unknown Malignant neoplasm Unknown Macular degeneration Unknown grandmother Macular degeneration Unknown Instructions * Patient Instructions* Sandie Tyler MA - 08/23/2020 9:02 AM EST Effective 10/14/2019, all [employer] users will be automatically enrolled in paperless billing in an effort to save our environment by eliminating waste & reduce healthcare costs. A monthly notification will be sent to your e-mail address on file indicating you have a new billing statement available in [employer]. If you prefer to receive paper statements, log into [employer] at [employer] to update your e-mail, text and mail preferences (opting out of paperless billing). Please direct further questions to Customer Service at [phone] or [email or web address] documented in this encounter* Patient Instructions* Marli Thompson PA-C - 07/27/2020 11:05 AM EDT -get plenty of rest -drink plenty of fluids -you can use OTC Chloraseptic spray as well as warm salt water gargles for sore throat -you can taking OTC cough suppressant such as Dextromethorphan Robitussin, Delsym +/- Guaifenesin (Mucinex) for cough -you can take OTC antihistamine such as Zyrtec or Claritin +/- Pseudoephedrine (Sudafed) for congestion -you can try OTC Pepto Bismol for stomach upset -You can take ibuprofen 600-800mg every 8 hours +/- acetaminophen 1000mg every 6 hours for any painor discomfort. You may alternate between the two medications every 4 hours for better coverage. *do not exceed more than 4000mg of acetaminophen per 24 hours and do not exceed more than 3200mg ibuprofen per 24 hours -vitamins C, D and Zinc have been shown to help fight Upper Respiratory Illnesses If symptoms worsen or new symptoms develop (fevers not responding to medication, confusion, severe shortness of breath, chest pain, inability to keep liquids down, weakness, abdominal pain), please go immediately to ED for further evaluation [facility] COVID-19 Post-swabbing Instructions We will do our best to update you as soon as we receive your test results, but if we had to send your test to be run at the lab, you may see the results on [employer] or receive a call from [facility] before we are able to contact you. You should receive a call from our COVID-19 results provider as soon as possible. If you test POSITIVE for COVID-19: Isolate until: - it has been 10 days since you developed symptoms AND - you have been without a fever (100.4 F) for at least 24 hours without the use of fever reducing medication AND - your symptoms are improving Isolation is when you test positive for COVID-19 and is meant to keep the infected person away fromall others, even in their own home. If you live with others, stay in a specific sick room or area and away from other people or animals, including pets. Use a separate bathroom, if available. Seek emergency medical care immediately if you develop worsening warning signs including: - trouble breathing - persistent pain or pressure in the chest - new confusion - inability to wake or stay awake - bluish lips or face It is not recommended by the CDC to have another COVID-19 test done in order to discontinue isolation or return to work/school. We can provide return to work and school documentation as needed. If you test NEGATIVE for COVID-19: If you are under a 14 day quarantine because of significant exposure defined as close contact with someone that has a laboratory confirmed infection from COVID- 19 or that person was diagnosed by a medical professional, then a negative COVID-19 test does not clear you from the 14 day quarantine. Youwere likely not clinically infectious at the time of the test. This does not mean that you will notget sick and develop symptoms. It is possible that you were in the early phase of the infection at the time of your test and you could be positive later. For these reasons: 1) If the test was due to having symptoms WITH significant exposure, you should remain in quarantine: - for the full 14 days AND - you have been without a fever (100.4 F) for at least 24 hours without the use of fever reducing medication AND - your symptoms are improving If you are unable to separate yourself completely from the COVID-19 positive person (i.e. parent caring for a child), CDC guidelines recommend you quarantine for 24 days (10 days from symptom onset of the COVID positive person PLUS 14 additional days). 2) If the test was due to symptoms WITHOUT significant exposure, you may return to work/school if: - you have been without a fever (100.4 F) for at least 24 hours without the use of fever reducing medication AND - your symptoms are improving When Do I Self-Quarantine? You should quarantine if you have had a significant exposure which is defined as having been in close contact (as defined below) with someone that has a laboratory confirmed infection from COVID-19 or that person was diagnosed by a medical professional. This includes contact within 48 hours prior to when the COVID-19 positive person developed symptoms. - Quarantine is used to keep someone who might have been exposed to COVID-19 away from others. - Quarantine helps prevent spread of disease that can occur before a person knows they are sick or if they are infected with the virus without feeling symptoms. - People in quarantine should stay home, separate themselves from others, monitor their health, andfollow directions from their state or local health department. What counts as close contact? - You were within 6 feet of someone who has COVID-19 for at least 15 minutes - You provided care at home to someone who is sick with COVID-19 - You had direct physical contact with the person (touched, hugged, or kissed them) - You shared eating or drinking utensils - They sneezed, coughed, or somehow got respiratory droplets on you When and How Will I Get Results? Results will be available anywhere from 1-5 days after your specimen is collected. The provider/practice who placed the order for your test will notify you of your results. - If you have an active [employer] account, and your COVID-19 test is negative (not detected), then you will be notified through your [employer] account. You should call the urgent care if you have any further questions. - If your COVID-19 test is positive (detected), you will receive a phone call to discuss your results and answer any questions you might have at that time. Please make sure [facility] has your updated phone number so we can contact you. [facility] will notify the [facility] of any positive results to comply with state regulations. What Happens After I Get Tested if I Develop Worsening COVID-19 Symptoms? All patients should self-quarantine at home until they receive their test results. While self-quarantining, contact your PCP or return to the urgent care if you develop any of the following: - A fever of 103 degrees F (39.4 C) or higher - A fever that lasts more than 3 days without medication - A fever that returns after being gone for more than 24 hours - Chest pain or difficulty breathing - A worsening of current symptoms For work concerns, please contact your employer's HR department. How Do I Self-Quarantine? - Stay home until 14 days after last exposure and maintain social distance (at least 6 feet) from others at all times - Avoid contact with people at higher risk for severe illness from COVID-19 - Self-monitor for symptoms: - Check temperature twice a day - Watch for fever (100.4F or higher), cough, shortness of breath, or other CDC recognized symptoms of COVID-19 If I test positive, what about those with which I have had close contact (household members, partners, close friends, etc)? Anyone with close contact (as defined above) within 48 hours prior to when the COVID-19 positive person developed symptoms should self-quarantine for 14 days as above. What Do I Do If I am Sick? Stay Home: If you are sick, stay home from work, school, public places, and social gatherings Social Distance: maintain 6 feet of distance from other people. Monitor Your Symptoms: If you develop fever, shortness of breath, confusion, or any respiratory symptoms, please notify your doctor immediately Cover Your Cough: Cough and sneeze into your shirt sleeve or inner elbow. Do not cough into your hands or into the air. If available, cough into a tissue and throw it into a trash can. Wash Your Hands: Wash hands often with soap and warm water and/or alcohol based hand track laying machine operator, scrubbing your hands for at least 20 seconds. Wash your hands after sneezing or coughing, after going to the bathroom, and before eating or drinking. Wear a Mask: Wear a face mask when around others. Always wear a face mask (if able) if you have to leave your home Don't Touch: avoid touching your eyes, nose, and mouth Don't Share: avoid sharing items with others as they can spread infection Call First: If you do need to seek urgent medical care, call the facility first to let them know you are on your way Other COVID Questions? CDC - https://www.cdc.gov/coronavirus/2019-ncov/index.html - https://www.cdc.gov/coronavirus/2019-ncov/gu-cqz-uam-sick/quarantine.html [facility] - Website: https://coronavirus.[place].gov/wps/portal/gov/covid-19/home - Hotline: 256-0-ZRS-ODH (193-256-0235) [facility]: [email or web address]/series/tkkks-[email or web address]-jsagasfdqua-toolkit/ documented in this encounter Reason for Referral Specialty Diagnoses / Procedures Referred By Adia t Referred To Contact Diagnoses Prolonged Marta Del Valle MD [address] [place] [address] Referral ID Status Reason Start Date Expiration Date V isits Requested Visits Authorized [id number] New Request 09/27/2022 10/22/2023 1 1 Specialty Diagnoses / Procedures Referred By Contac t Referred To Contact Radiology Diagnoses Encounter for assisted reproductive fertility procedure cycle Procedures US PELVIS TRANSABDOMINAL WITH TRANSVAGINAL US pelvis transvaginal Levon Braxton MD [address] [facility] [place] [address] Referral ID Status Reason Start Date Expiration Date Visits Requested Visits Authorized [id number] Pending Review Perform Procedure 06/11/2024 06/11/2025 1 1 Specialty Diagnoses / Procedures Referred By Contac t Referred To Contact Radiology Diagnoses Encounter for assisted reproductive fertility procedure cycle Procedures GERRY US Pelvis Limited Follicles - Follicle Studies Performed Levon Braxton MD [address] [place] [address] Referral ID Status Reason Start Date Expiration Date Visits Requested Visits Authorized [id number] Authorized Perform Procedure 06/19/2024 06/19/2025 1 1 Specialty Diagnoses / Procedures Referred By Contac t Referred To Contact Radiology Diagnoses Encounter for assisted reproductive fertility procedure cycle Procedures US PELVIS TRANSABDOMINAL WITH TRANSVAGINAL Levon Braxton MD [address] [place] [address] Referral ID Status Reason Start Date Expiration Date Visits Requested Visits Authorized [id number] Authorized Perform Procedure 06/15/2024 06/15/2025 1 1 Referral ID Status Reason Start Date Expiration Date Visits Requested Visits Authorized [id number] Authorized Perform Procedure 06/22/2024 06/22/2025 1 1 Referral ID Status Reason Start Date Expiration Date Visits Requested Visits Authorized [id number] Authorized Perform Procedure 06/15/2024 06/15/2025 1 1 Referral ID Status Reason Start Date Expiration Date Visits Requested Visits Authorized [id number] Authorized Perform Procedure 06/24/2024 06/24/2025 1 1 Referral ID Status Reason Start Date Expiration Date Visits Requested Visits Authorized [id number] Authorized Perform Procedure 06/15/2024 06/15/2025 1 1 Chief Complaint and Reason for Visit Chief Complaint Annual (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) INFERTILITY INFERTILITY Reason for Visit Infertility associat ed with anovulation PCOS (polycystic ovarian syndrome) Encounter for routine gynecological examination PCOS (polycystic ovarian syndrome) Chief Complaint Admit Date 12wk OB *DOC ONLY* November 05, 2024 2 :22pm palpitations November 10, 2024 6:30pm 16 WK OB *DOC ONLY* December 03, 2024 1:25 pm 20 WK OB *DOC ONLY* January 01, 2025 10:0 3am 24 WK OB *DOC ONLY* January 29, 2025 10:15a m 28 WK OB/GLUCOSE *DOC ONLY* February 26 8:34am Reason for Visit Admit Date AMA (advanced maternal age) multigravida 35+ November 05, 2024 2:22pm Conceived by in vitro fertilization Febr 2024 2:22pm Depression with anxiety November 05 2:22pm Family history of genetic disorder Febru kerwin2024 2:22pm GERD (gastroesophageal reflux disease) F ebruary 2024 2:22pm H/O section November 05, 2024 2:22pm Infertility associated with anovulation November 05, 2024 2:22pm Marijuana use November 05, 2024 2 :22pm Obesity affecting October 2:22pm PCOS (polycystic ovarian syndrome) u 2024 2:22pm November 05, 2024 2 :22pm Rh negative status during 2024 2:22pm Sleep apnea November 05, 2024 2 :22pm Supervision of high-risk 2024 2:22pm AMA (advanced maternal age) multigravida 35+ December 03, 2024 1:25pm Conceived by in vitro fertilization William 2024 1:25pm Depression with anxiety December 03, 2024 1:25pm Family history of genetic disorder December 03, 2024 1:25pm GERD (gastroesophageal reflux disease) M arch 2024 1:25pm H/O section December 03, 2024 1:2 5pm Infertility associated with anovulation December 03, 2024 1:25pm Marijuana use December 03, 2024 1:25 pm Obesity affecting December 03, 2 025 1:25pm PCOS (polycystic ovarian syndrome) December 03, 2024 1:25pm December 03, 2024 1:25 pm Rh negative status during William h 2024 1:25pm Sleep apnea December 03, 2024 1:25 pm Supervision of high-risk December 03, 2024 1:25pm AMA (advanced maternal age) multigravida 35+ January 01, 2025 10:03am Conceived by in vitro fertilization Apri l 2024 10:03am Depression with anxiety January 01, 2025 10:03am Family history of genetic disorder January 01, 2025 10:03am GERD (gastroesophageal reflux disease) A pril 2024 10:03am H/O section January 01, 2025 10: 03am Infertility associated with anovulation January 01, 2025 10:03am Marijuana use January 01, 2025 10:0 3am Obesity affecting January 01, 2 10:03am PCOS (polycystic ovarian syndrome) January 01, 2025 10:03am January 01, 2025 10:0 3am Rh negative status during Apri l 2024 10:03am Sleep apnea January 01, 2025 10:0 3am Supervision of high-risk January 01, 2025 10:03am AMA (advanced maternal age) multigravida 35+ January 29, 2025 10:15am Conceived by in vitro fertilization January 29, 2025 10:15am Depression with anxiety January 29, 2025 10 :15am Family history of genetic disorder January 292024 10:15am GERD (gastroesophageal reflux disease) M ay 2024 10:15am H/O section January 29, 2025 10:15 am Infertility associated with anovulation January 29, 2025 10:15am Marijuana use January 29, 2025 10:15a m Obesity affecting January 29 10:15am PCOS (polycystic ovarian syndrome) January 292024 10:15am January 29, 2025 10:15a m Rh negative status during January 29, 2025 10:15am Sleep apnea January 29, 2025 10:15a m Supervision of high-risk January 292024 10:15am AMA (advanced maternal age) multigravida 35+ February 26, 2025 8:34am Conceived by in vitro fertilization February 26, 2025 8:34am Depression with anxiety February 26, 2025 8 :34am Family history of genetic disorder January 302024 8:34am GERD (gastroesophageal reflux disease) M ay 2024 8:34am H/O section February 26, 2025 8:34 am Infertility associated with anovulation February 26, 2025 8:34am Marijuana use February 26, 2025 8:34a m Obesity affecting February 26 8:34am PCOS (polycystic ovarian syndrome) January 302024 8:34am February 26, 2025 8:34a m Rh negative status during February 26, 2025 8:34am Sleep apnea February 26, 2025 8:34a m Supervision of high-risk January 302024 8:34am Additional Source Comments Reason for Visit (unrecogniz ed section and content) Reason Comments Leukocytosis, unspecified type(HCC) Reason Comments Abdominal Pain Reason Comments Leukocytosis, unspecified type Reason Comments Rash Deep painful red bum ps since 02/16 when she stopped OCP that she had been on for 12 years. Stopped in order to get . Not associate with oiliness. Not having regular cycles yet. OTC products minimal benefit Skin Lesion Left abdomen since e mahnaz childhood unchanged Reason Comments Fever aches, diarrhea, jackie sea, exposed to COVID. sx starting Saturday night Reason Comments Chest Pain Reason Comments Medication Refill Reason Comments Routine Visit Reason Comments Annual Exam Reason Comments Physical Breast Problem Medication Refill All medications Specialty Diagnoses / Procedures Referred By Adia vicente Referred To Contact Diagnoses Breast pain, right Procedures MAMMO DIAGNOSTIC WITH ADRIANA BILATERAL MAMMO DIAGNOSTIC BILATERAL Lawrence Young MD [address] [facility] [place] [address] Referral ID Status Reason Start Date Expiration Date V isits Requested Visits Authorized [id number] New Request 12/19/2022 01/13/2024 1 1 Reason Comments Cough Fevers x4 days Specialty Diagnoses / Procedures Referred By Adia vicente Referred To Contact Radiology Diagnoses Encounter for assisted reproductive fertility procedure cycle Procedures US PELVIS TRANSABDOMINAL WITH TRANSVAGINAL US pelvis transvaginal Levon Braxton MD [address] [place] [address] Referral ID Status Reason Start Date Expiration Date Visits Requested Visits Authorized [id number] Pending Review Perform Procedure 06/11/2024 06/11/2025 1 1 Specialty Diagnoses / Procedures Referred By Adia vicente Referred To Contact Radiology Diagnoses Encounter for assisted reproductive fertility procedure cycle Procedures US PELVIS TRANSABDOMINAL WITH TRANSVAGINAL Levon Braxton MD [address] [place] [address] Referral ID Status Reason Start Date Expiration Date Visits Requested Visits Authorized [id number] Authorized Perform Procedure 06/15/2024 06/15/2025 1 1 Referral ID Status Reason Start Date Expiration Date Visits Requested Visits Authorized [id number] Authorized Perform Procedure 06/15/2024 06/15/2025 1 1 Referral ID Status Reason Start Date Expiration Date Visits Requested Visits Authorized [id number] Authorized Perform Procedure 06/15/2024 06/15/2025 1 1 Reason Comments Cough Max Alan PA-C - 07/29/2019 1:14 PM Mirta Davenport RN - 07/29/2019 12:15 PM Mirta Davenport RN - 07/29/2019 10:40 AM Rebeca Jiménez RN - 07/29/2019 10:25 AM EDT ED Notes (unrecognized secti on and content) EMERGENCY DEPARTMENT NAME: Barby Caballero PCP: Marta Del Valle MD AGE: 28 y.o. CSN: [id number] ED Course / Medical Decision Making: After my independent evaluation, some of the clinical entities that I considered for her included PUD, GERD, cholelithiasis, cholecystitis, hepatitis, pancreatitis, appendicitis, pyelonephritis, ureterolithiasis, diverticulitis, pancreatitis, peritonitis, IBS, Crohn's disease, ruptured viscus. Serial exams revealed benign nontender abdomen not suggestive of an acute surgical process. She is pain-free upon discharge and is to follow with her primary care provider. She does have a 4 mm area focus on the gallbladder that is not a l location that should be causing her symptoms are causing any obstructive disease. LFTs are normal and lipase is normal. She is to continue her pantoprazole. 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 She is given appropriate warnings to return to the emergency department She was treated symptomatically during her ED course. In my medical opinion, I consider her to be low risk for any serious or life-threatening entity, and deemed her stable for discharge. This is based on information that was available to me at the time of this ED visit. Because the cause of the abdominal pain was not 100% certain, we recommended that she be rechecked by his physician or in our ED within 1 day [or sooner if her condition worsens]. In addition we recommended that she also follow-up with a PCP to ensure resolution of her medical condition. History: Chief Complaint: Abdominal Pain History of Present Illness: Patient presents to the emergency department with concern for abdominal pain. She has epigastric and right upper quadrant abdominal pain that started about 4 to 5 days ago. She has 2 episodes in total. Pain was resolved for several days until it returned this morning at 3 AM. Upon arrival the pain was improving and is now essentially resolved. There is some associated nausea without vomiting or diarrhea. No urinary concerns. She denies cough chest pain or shortness of breath. Cannot relate any alleviating or exacerbating factors. Patient does take pantoprazole daily. She did contact her primary care provider and was directed to come to the emergency department for evaluation. States she would like to get some imaging and some blood work done. Past Medical History: Past Medical History: Diagnosis Date Anxiety MELINA Dysmenorrhea Eating disorder Elevated C-reactive protein (CRP) Gallbladder polyp GERD (gastroesophageal reflux disease) Hemorrhoids Leukocytosis Palpitations Past Surgical History: Past Surgical History: Procedure Laterality Date WRIST FRACTURE SURGERY Family History: Family History Problem Relation Age of Onset Hypertension Mother Social History: Social History Socioeconomic History Marital status: Single Spouse name: Not on file Number of children: Not on file Years of education: Not on file Highest education level: Not on file Occupational History Not on file Social Needs Financial resource strain: Not on file Food insecurity: Worry: Not on file Inability: Not on file Transportation needs: Medical: Not on file Non-medical: Not on file Tobacco Use Smoking status: Never Smoker Smokeless tobacco: Never Used Substance and Sexual Activity Alcohol use: Yes Drug use: Not on file Sexual activity: Not on file Lifestyle Physical activity: Days per week: Not on file Minutes per session: Not on file Stress: Not on file Relationships Social connections: Talks on phone: Not on file Gets together: Not on file Attends mosque service: Not on file Active member of club or organization: Not on file Attends meetings of clubs or organizations: Not on file Relationship status: Not on file Other Topics Concern Not on file Social History Narrative Not on file Medications: Previous Medications Medication Sig escitalopram oxalate (LEXAPRO) 10 MG tablet Take 10 mg by mouth daily . pantoprazole (PROTONIX) 40 MG tablet Take 40 mg by mouth daily . VELIVET TRIPHASIC REGIMEN, 28, 0.1/.125/.15-25 mg-mcg tablet Take 1 tablet by mouth daily . Allergies: Allergies Allergen Reactions Amoxicillin Diarrhea and GI Intolerance Review of Systems: Review of Systems Constitutional: Negative for chills, fatigue and fever. HENT: Negative for congestion, ear pain and rhinorrhea. Respiratory: Negative for cough, chest tightness, shortness of breath and wheezing. Cardiovascular: Negative for chest pain, palpitations and leg swelling. Gastrointestinal: Positive for abdominal pain and nausea. Negative for constipation, diarrhea and vomiting. Genitourinary: Negative for dysuria, flank pain, hematuria and urgency. Musculoskeletal: Negative for back pain, joint swelling and neck pain. Neurological: Negative for dizziness, syncope, weakness, numbness and headaches. Positives and pertinent negatives as per HPI. All other systems were reviewed and are negative. Physical Exam: Patient Vitals for the past 24 hrs: BP Temp Pulse Resp SpO2 Height Weight 07/29/19 1027 126/77 97.8 F (36.6 C) (!) 106 18 95 % 5' 2 97.5 kg (215 lb) Physical Exam Vitals signs and nursing note reviewed. Constitutional: Appearance: She is well-developed. She is not diaphoretic. HENT: Head: Atraumatic. Right Ear: Tympanic membrane normal. No swelling or tenderness. Left Ear: Tympanic membrane normal. No swelling or tenderness. Nose: Nose normal. Eyes: Conjunctiva/sclera: Conjunctivae normal. Pupils: Pupils are equal, round, and reactive to light. Neck: Musculoskeletal: Normal range of motion and neck supple. Thyroid: No thyromegaly. Trachea: No tracheal deviation. Cardiovascular: Rate and Rhythm: Normal rate and regular rhythm. Heart sounds: Normal heart sounds. No murmur. No friction rub. No gallop. Pulmonary: Effort: Pulmonary effort is normal. No respiratory distress. Breath sounds: Normal breath sounds. No wheezing or rales. Abdominal: General: Bowel sounds are normal. There is no distension. Palpations: Abdomen is soft. There is no mass. Tenderness: There is no tenderness. There is no right CVA tenderness, guarding or rebound. Negative signs include Mcghee's sign and McBurney's sign. Hernia: No hernia is present. Musculoskeletal: General: No tenderness. Skin: General: Skin is warm. Neurological: Mental Status: She is alert and oriented to person, place, and time. Cranial Nerves: No cranial nerve deficit. Coordination: Coordination normal. Laboratory & Radiological Imaging (if done): Labs Reviewed BASIC METABOLIC PANEL - Abnormal; Notable for the following components: Result Value Glucose 104 (*) All other components within normal limits Narrative: The eGFR should be used for monitoring renal function only and not for medication dosing. CBC WITH AUTO DIFFERENTIAL - Abnormal; Notable for the following components: WBC 11.38 (*) MPV 8.9 (*) Neutrophils Abs 7.57 (*) All other components within normal limits HEPATIC FUNCTION PANEL - Normal LIPASE - Normal POC , URINE - Normal POC URINALYSIS DIPSTICK,NON-AUTO - Normal CBC AND DIFFERENTIAL Narrative: The following orders were created for panel order CBC w/ Diff. Procedure Abnormality Status --------- ------ CBC Auto Differential[[id number]] Abnormal Final result Please view results for these tests on the individual orders. US Abdomen Limited Study Preliminary Result 1. There is a small 4 mm echogenic focus in the nondependent portion of the gallbladder wall which may reflect a small amount of adherent gallbladder sludge or a small benign cholesterol polyp. No further follow-up is required. 2. Otherwise unremarkable right upper quadrant abdominal ultrasound. [employer] Workstation ID: [id number] No current facility-administered medications for this encounter. Current Outpatient Medications Medication Sig Dispense Refill escitalopram oxalate (LEXAPRO) 10 MG tablet Take 10 mg by mouth daily . ondansetron (Zofran ODT) 4 MG disintegrating tablet Dissolve 1 (one) tablet (4 mg total) on top of tongue every 6 (six) hours as needed for nausea . 12 tablet 0 pantoprazole (PROTONIX) 40 MG tablet Take 40 mg by mouth daily . VELIVET TRIPHASIC REGIMEN, 28, 0.1/.125/.15-25 mg-mcg tablet Take 1 tablet by mouth daily . Procedures: Procedures Clinical Impression: 1. Epigastric pain Follow-up Information 1. Marta Del Valle MD. Specialty: Internal Medicine Why: For Recheck, Return for ER worsening or new concerning symptoms [address] [facility] [address] Contact information for after-discharge care Follow-up information has not been specified. New Prescriptions ondansetron (Zofran ODT) 4 MG disintegrating tablet Dissolve 1 (one) tablet (4 mg total) on top of tongue every 6 (six) hours as needed for nausea . Max MATTA PA-C Emergency Department Physician Employee Services Manager (Please note that portions of this note have been completed with a voice recognition software. Efforts were made to correct any errors, but occasionally words are mis-transcribed.) Max Alan PA-C 07/29/19 1319 LABS DRAWN DENIES PAIN AT THIS TIME. HAD HAD 2 EPISODES OF RT UPPER QUAD PAIN AND BACK PAIN Patient says that she has had 2 episodes since Saturday evening of right upper abd and back pain, both times it woke her from sleep, lasting ~ 6 hours. Nausea following the pain, denies vomiting. documented in this encounter REPEAT TROPONIN DRAWN. PATIENT STATES EPISODES OF CHEST DISCOMFORT ARE OCCURRING FARTHER AND FARTHER APART. PATIENT STATES MID CHEST PAIN IS LESS. STILL FEELS PRESSURE. Pt ambulate to bathroom with steady gait Associated Order(s): EKG 12-lead EMERGENCY DEPARTMENT PCP - Marta Del Valle MD Chief Complaint Patient presents with Chest Pain HPI 28-year-old white female with a history of reflux, depression, anxiety, and irritable bowel states that shortly after 6 PM she had some Latvian fries and drank a beer and then at approximately 10:30 PM she developed this epigastric and substernal chest pain. She states it is a sharp, heavy, burning sensation. She states it started going into her left shoulder as well. She denies any current radiating pain. She states she now is currently has a mild discomfort in her epigastric area. She denies any associated shortness of breath. She states she has had mild nausea. She denies vomiting or diarrhea. She denies any falls, trauma, heavy lifting. She states this pain started basically while she was walking to the bathroom. She denies that being associated with any heavy exertion. She denies any history of similar chest pain. She states her grandfather has had 2 heart attacks but she denies any heart attacks in her siblings or her parents. She is on control pills but she denies any other pulmonary embolus risk factors. She denies leg pain or swelling. She denies any rash. MEDICAL DECISION MAKING Differential includes STEMI, non-STEMI, aortic dissection, pneumonia, pneumothorax, pulmonary embolus, pancreatitis, gastritis, duodenitis, reflux, other. SNOMED CT(R) 1. Abdominal pain, unspecified abdominal location ABDOMINAL PAIN 2. Chest pain, unspecified type CHEST PAIN 3. Leukocytosis, unspecified type LEUKOCYTOSIS Follow-up Information 1. Marta Del Valle MD. Specialty: Internal Medicine [address] [place] [address] [facility] [id number] Contact information for after-discharge care Follow-up information has not been specified. Discontinued Medications Disp Refills Start End hydrOXYzine (VISTARIL) 25 MG capsule 07/30/2017 03/18/2019 Class: Historical Med omeprazole (PRILOSEC) 20 MG capsule 03/18/2019 Class: Historical Med Review of Systems Constitutional: Negative for chills and fever. HENT: Negative for sore throat. Eyes: Negative for visual disturbance. Respiratory: Negative for shortness of breath. Cardiovascular: Positive for chest pain. Negative for palpitations and leg swelling. Gastrointestinal: Positive for abdominal pain and nausea. Negative for diarrhea and vomiting. Genitourinary: Negative for flank pain. Musculoskeletal: Negative for neck pain and neck stiffness. Skin: Negative for color change. Neurological: Negative for weakness and headaches. Psychiatric/Behavioral: Negative for suicidal ideas. All systems reviewed negative except as mentioned above. Physical Exam Vital Signs During ED Visit (as charted by nursing) Patient Vitals for the past 24 hrs: BP Temp Pulse Resp SpO2 Height Weight 03/18/19 2329 (!) 149/89 98.9 F (37.2 C) (!) 105 16 100 % 03/18/19 2327 5' 1 104.3 kg (230 lb) Physical Exam Constitutional: She is oriented to person, place, and time. She appears well-developed and well-nourished. Pleasant, obese female, no distress HENT: Head: Normocephalic and atraumatic. Right Ear: External ear normal. Left Ear: External ear normal. Nose: Nose normal. Mouth/Throat: Oropharynx is clear and moist. Eyes: Conjunctivae and EOM are normal. Neck: Normal range of motion. Neck supple. No JVD present. No tracheal deviation present. Cardiovascular: Normal rate, regular rhythm, normal heart sounds and intact distal pulses. Pulmonary/Chest: Effort normal and breath sounds normal. No respiratory distress. She exhibits tenderness. Mild sternal tenderness, soft, no crepitus, no subcutaneous air Abdominal: Soft. She exhibits no distension. There is tenderness. Mild epigastric tenderness, soft, no peritoneal signs Musculoskeletal: Moving all extremities, no gross deformity, no calf tenderness Neurological: She is alert and oriented to person, place, and time. She exhibits normal muscle tone. GCS 15 Skin: Skin is warm and dry. Psychiatric: She has a normal mood and affect. Her behavior is normal. Judgment and thought content normal. Nursing note and vitals reviewed. Past Medical History Past Medical History: Diagnosis Date Anxiety MELINA Dysmenorrhea Eating disorder Elevated C-reactive protein (CRP) Gallbladder polyp GERD (gastroesophageal reflux disease) Hemorrhoids Leukocytosis Palpitations Past Surgical History Past Surgical History: Procedure Laterality Date WRIST FRACTURE SURGERY Family History Family History Problem Relation Age of Onset Hypertension Mother Social History Social History Socioeconomic History Marital status: Single Spouse name: Not on file Number of children: Not on file Years of education: Not on file Highest education level: Not on file Occupational History Not on file Social Needs Financial resource strain: Not on file Food insecurity: Worry: Not on file Inability: Not on file Transportation needs: Medical: Not on file Non-medical: Not on file Tobacco Use Smoking status: Never Smoker Smokeless tobacco: Never Used Substance and Sexual Activity Alcohol use: Yes Drug use: Not on file Sexual activity: Not on file Lifestyle Physical activity: Days per week: Not on file Minutes per session: Not on file Stress: Not on file Relationships Social connections: Talks on phone: Not on file Gets together: Not on file Attends mosque service: Not on file Active member of club or organization: Not on file Attends meetings of clubs or organizations: Not on file Relationship status: Not on file Other Topics Concern Not on file Social History Narrative Not on file Allergies Allergies Allergen Reactions Amoxicillin Diarrhea and GI Intolerance Medications Patient's Medications New Prescriptions No medications on file Previous Medications ESCITALOPRAM OXALATE (LEXAPRO) 10 MG TABLET Take 10 mg by mouth. PANTOPRAZOLE (PROTONIX) 40 MG TABLET Take 40 mg by mouth. VELIVET TRIPHASIC REGIMEN, 28, 0.1/.125/.15-25 MG-MCG TABLET Modified Medications No medications on file Discontinued Medications HYDROXYZINE (VISTARIL) 25 MG CAPSULE Take 25 mg by mouth 4 (four) times a day as needed . OMEPRAZOLE (PRILOSEC) 20 MG CAPSULE Take 20 mg by mouth daily. All Radiographic Imaging (if any) were read by Radiologist and reviewed and viewed by myself Radiographic Imaging (if any) During ED Visit XR Chest AP/PA and LAT Preliminary Result Mild perihilar and lingular/bibasilar atelectatic change with no other acute process. [facility] Workstation ID: [id number] No results found. Medications Ordered/Given During ED Visit Medications aspirin chewable tablet 324 mg (324 mg Oral Given 03/19/1914) lidocaine viscous 2% 10 mL and maalox plus 30 mL (GI COCKTAIL) 40 mL solution (40 mL Oral Given 03/19/1915) ketorolac (TORADOL) injection 30 mg (30 mg Intravenous Given 03/19/19115) ondansetron (ZOFRAN) injection 4 mg (4 mg Intravenous Given 03/19/194) EKG 12-lead Date/Time: 03/18/2019 11:49 PM Performed by: Laurent Duque MD Authorized by: Laurent Duque MD Interpreted by ED attending physician Comparison: not compared with previous ECG BPM: 103 Comments: Rate 103, sinus tachycardia, normal QRS interval, normal axis, no acute ST elevation, interpreted by me I personally reviewed the x-rays and ECG if performed NarxCheck/OARRS score/reporting was reviewed Note: To expedite correspondence this note was generated by [employer] voice recognition software. Some grammatical or spelling errors may occur using the system. The patient has been informed that they may have pre-hypertension or hypertension based on a blood pressure reading in the Emergency Department. I recommend that the patient call the primary care provider listed on their discharge instructions or a physician of their choice as soon as possible to arrange follow-up in the next 4 weeks for further evaluation of possible pre-hypertension or hypertension. . ED Course Results for orders placed or performed during the hospital encounter of 03/18/19 BMP Result Value Ref Range Sodium 140 135 - 145 mmol/L Potassium 3.9 3.5 - 5.1 mmol/L Chloride 104 98 - 108 mmol/L Bicarbonate 23 21 - 32 mmol/L Anion Gap 17 10 - 20 mmol/L Glucose 115 (H) 65 - 99 mg/dL BUN 9 8 - 25 mg/dL Creatinine 0.60 0.40 - 1.10 mg/dL eGFR 124 >=60 mL/min/1.73 m2 BUN/Creatinine Ratio 15.0 10.0 - 20.0 Calcium 9.9 8.4 - 10.2 mg/dL Hepatic Function Panel (LFT) Result Value Ref Range Total Protein 8.0 6.0 - 8.0 g/dL Albumin 4.4 3.2 - 5.2 g/dL Total Bilirubin <0.2 0.0 - 1.3 mg/dL Bilirubin, Direct <0.2 0.0 - 0.4 mg/dL Alkaline Phosphatase 109 40 - 140 U/L AST 16 0 - 45 U/L ALT 17 0 - 40 U/L Lipase Result Value Ref Range Lipase 39 15 - 65 U/L Troponin x 2 (Now and Repeat in 3 hours) Result Value Ref Range Troponin T <6 <=14 ng/L Troponin T Interpretation Normal Troponin x 2 (Now and Repeat in 3 hours) Result Value Ref Range Troponin T <6 <=14 ng/L Interp Troponin T Delta Change No biomarker evidence of cardiac injury. D-Dimer, Quantitative Result Value Ref Range D-Dimer 0.42 0.27 - 0.49 mcg/mL FEU Gold Top Result Value Ref Range Extra Tube Hold for add-ons. Buck Top Result Value Ref Range Extra Tube Hold for add-ons. POC Urine Result Value Ref Range POC Preg Test, Ur Negative Negative Internal Control Pass Spec Grav, UA 1.005 1.005 - 1.025 CBC Auto Differential Result Value Ref Range WBC 16.87 (H) 4.50 - 11.00 K/mcL RBC 5.12 4.00 - 5.20 M/mcL Hemoglobin 13.4 12.0 - 16.0 g/dL Hematocrit 41.7 36.0 - 46.0 % MCV 81.4 80.0 - 100.0 fL MCH 26.2 26.0 - 34.0 pg MCHC 32.1 31.0 - 37.0 g/dL Platelets 418 (H) 150 - 400 K/mcL RDW - CV 14.0 11.6 - 14.8 % MPV 8.7 (L) 9.0 - 15.5 fL Neutrophils 60.6 % Lymphocytes 31.6 % Monocytes 5.5 % Eosinophils 2.1 % Basophils 0.2 % Neutrophils Abs 10.22 (H) 1.70 - 7.00 K/mcL Lymphocytes Abs 5.33 (H) 0.90 - 4.00 K/mcL Monocytes Abs 0.93 (H) 0.30 - 0.90 K/mcL Eosinophils Abs 0.35 0.00 - 0.50 K/mcL Basophils Abs 0.04 0.00 - 0.30 K/mcL Nucleated RBC 0.0 % Nucleated RBC Abs 0.00 0.00 - 0.00 K/mcL Labs Reviewed BASIC METABOLIC PANEL - Abnormal; Notable for the following components: Result Value Glucose 115 (*) All other components within normal limits Narrative: The eGFR should be used for monitoring renal function only and not for medication dosing. CBC WITH AUTO DIFFERENTIAL - Abnormal; Notable for the following components: WBC 16.87 (*) Platelets 418 (*) MPV 8.7 (*) Neutrophils Abs 10.22 (*) Lymphocytes Abs 5.33 (*) Monocytes Abs 0.93 (*) All other components within normal limits HEPATIC FUNCTION PANEL - Normal LIPASE - Normal D-DIMER, QUANTITATIVE - Normal Narrative: A D-dimer concentration of <0.5 micrograms per milliliter FEU is considered a low probability for pulmonary embolus (PE) and deep venous thrombosis (DVT). Results of this test should always be interpreted in conjunction with the patient's medical history,clinical presentation, and other findings. Clinical diagnosis should not be based on the results of the D-dimer alone. POC , URINE - Normal CBC AND DIFFERENTIAL Narrative: The following orders were created for panel order CBC w/ Diff. Procedure Abnormality Status --------- ------ CBC Auto Differential[[id number]] Abnormal Final result Please view results for these tests on the individual orders. TROPONIN TROPONIN 2347-patient be given an aspirin and a GI cocktail here. 0048-patient has a chronic leukocytosis but her lab work-up is otherwise unremarkable including liver enzymes, lipase, troponin and d-dimer. She states she now has some nausea after the GI cocktail and she is still having some pain. She will be given IV Zofran and Toradol. 0340-patient's repeat troponin here was unremarkable. She states she has had clinical improvement while here in the emergency department. She has a chronic leukocytosis. Chest x-ray shows no acute abnormalities. At this time I do not believe the patient has an acute cardiac or life-threatening event. Her heart score is a 1 and she has had serial troponins that were normal here. I recommended her following up with her family doctor first available appointment and returning to the emergency room for any worsening symptoms or concerns Laurent Duque MD 03/19/19 0341 Epigastric pressure began about 1 hour ago and now achy feeling up into chest and left shoulder. States feeling tired past few days . deneis cough or other symptoms. Pt took protonix at dinner which she had kinyarwanda fries and 1 [place] drink. documented in this encounter ED Attestation Note - Robert Peterson MD - 07/29/2019 1:20 PM EDT Miscellaneous Notes (unrecog nized section and content) ED Attestation: I was personally available for consult in the ED for this patient, if the Advanced Practice Provider (HUMERA) needed any assistance. The HUMERA evaluated the patient independently for a complaint of Abdominal Pain, and completed their own examination, documentation, and discharge. documented in this encounter INFORMATION SOURCE (unrecogn ized section and content) DATE CREATED AUTHOR [facility]/2020 [facility] DATE CREATED AUTHOR AUTHOR'S ORGANIZ ATION 08/23/2020 [facility] DATE CREATED AUTHOR AUTHOR'S ORGANIZ ATION 10/04/2021 [facility] DATE CREATED AUTHOR AUTHOR'S ORGANIZ ATION 10/06/2021 [facility] DATE CREATED AUTHOR AUTHOR'S ORGANIZ ATION 10/08/2021 [facility] DATE CREATED AUTHOR AUTHOR'S ORGANIZ ATION 05/04/2023 [facility] DATE CREATED AUTHOR AUTHOR'S ORGANIZ ATION 10/09/2024 [facility] DATE CREATED AUTHOR AUTHOR'S ORGANIZ ATION 10/09/2024 [facility] DATE CREATED AUTHOR AUTHOR'S ORGANIZ ATION 11/05/2024 [facility] DATE CREATED AUTHOR AUTHOR'S ORGANIZ ATION 02/26/2025 [facility] DATE CREATED AUTHOR AUTHOR'S ORGANIZ ATION 03/04/2025 [facility] Care Teams (unrecognized sec tion and content) Biomedical Engineer Relationship Specialty Start Date End Date Marta Del Valle MD PCP - General Internal Medicine 12/09/13 Biomedical Engineer Relationship Specialty Start Date End Date Marta Del Valle MD PCP - General Internal Medicine 12/09/13 Faith Starkey MD [address] [phone] PCP - OBGYN Obstetrics & Gynecology 07/17/21 Biomedical Engineer Relationship Specialty Start Date End Date Marta Del Valle MD PCP - General Internal Medicine 12/09/13 Faith Starkey MD 160 [facility] [address] [place] [phone] PCP - OBGYN Obstetrics & Gynecology 07/17/21 Biomedical Engineer Relationship Specialty Start Date End Date Faith Starkey MD 160 [facility] [address] [place] [phone] PCP - OBGYN Obstetrics & Gynecology 07/17/21 Marta Del Valle MD [address] [place] [phone] PCP - General Internal Medicine 01/09/23 Lawrence Young MD [address] [place] [phone] Referring Provider Internal Medicine 01/09/23 Team Status: Active Member Role Status Dates No Primary Care Physician Primary Care Provider Active Team Status: Inactive Member Role Status Dates Dr. Edel Bullock DO Attending Provider Activ e JOSH LOZANO Referring Provider Active Team Status: Active Member Role Status Dates Dr. Edel Bullock DO Attending Provider, Referring Provider, Other Provider Active No Primary Care Physician Primary Care Provider Active Team Status: Inactive Member Role Status Dates Dr. Edel Bullock DO Attending Provider, Refe rring Provider Active No Primary Care Physician Primary Care Provider Active Biomedical Engineer Relationship Specialty Start Date End Date Faith Starkey MD 160 [facility] [address] [place] [phone] PCP - OBGYN Obstetrics & Gynecology 07/17/21 Marta Del Valle MD [address] [place] [phone] PCP - General Internal Medicine 01/09/23 Lawrence Young MD [address] [place] [phone] Referring Provider Internal Medicine 01/09/23 Biomedical Engineer Relationship Specialty Start Date End Date Steffen Eisenberg MD [address] [place] [phone] PCP - General Internal Medicine 08/14/24 Biomedical Engineer Relationship Specialty Start Date End Date Generic Provider, [place] [address] PCP - General Alum Mixer 06/15/24 Biomedical Engineer Relationship Specialty Start Date End Date Generic Provider, [place] [address] PCP - General Alum Mixer 06/15/24 Biomedical Engineer Relationship Specialty Start Date End Date Generic Provider, No [place] [address] PCP - General Alum Mixer 06/15/24 Biomedical Engineer Relationship Specialty Start Date End Date Generic Provider, [place] [address] PCP - General Alum Mixer 06/15/24 Biomedical Engineer Relationship Specialty Start Date End Date Steffen Eisenberg MD [address] [place] [phone] PCP - General Internal Medicine 08/14/24 Biomedical Engineer Relationship Specialty Start Date End Date Steffen Eisenberg MD [address] [place] [phone] PCP - General Internal Medicine 08/14/24 Team Status: Active Member Role Status Dates Dr. Steffen Eisenberg MD Primary Care Provider Active Team Status: Inactive Member Role Status Dates Dr. Steffen Eisenberg MD Primary Care Provider Active Start: November 05, 2024 End: November 05, 2024 Dr. Steffen Eisenberg MD Referring Provider Active Start: November 05, 2024 End: November 05, 2024 Dr. Edel Bullock DO Attending Provider Activ e Start: November 05, 2024 End: November 05, 2024 Team Status: Inactive Member Role Status Dates Dr. Steffen Eisenberg MD Primary Care Provider Active Start: November 10, 2024 End: November 10, 2024 Dr. Ld Fermin MD Attending Provider Active Sta rt: November 10, 2024 End: November 10, 2024 Dr. Ld Fermin MD Emergency Provider Active Sta rt: November 10, 2024 End: November 10, 2024 Team Status: Inactive Member Role Status Dates Dr. Steffen Eisenberg MD Primary Care Provider Active Start: December 03, 2024 End: December 03, 2024 Dr. Steffen Eisenberg MD Referring Provider Active Start: December 03, 2024 End: December 03, 2024 Dr. Edel Bullock DO Attending Provider Activ e Start: December 03, 2024 End: December 03, 2024 Team Status: Inactive Member Role Status Dates Dr. Steffen Eisenberg MD Primary Care Provider Active Start: January 01, 2025 End: January 01, 2025 Dr. Steffen Eisenberg MD Referring Provider Active Start: January 01, 2025 End: January 01, 2025 Dr. Apple Lao MD Attending Provider Active Start: January 01, 2025 End: January 01, 2025 Team Status: Inactive Member Role Status Dates Dr. Steffen Eisenberg MD Primary Care Provider Active Start: January 29, 2025 End: January 29, 2025 Dr. Steffen Eisenberg MD Referring Provider Active Start: January 29, 2025 End: January 29, 2025 Dr. Edel Bullock DO Attending Provider Activ e Start: January 29, 2025 End: January 29, 2025 Team Status: Inactive Member Role Status Dates Dr. Steffen Eisenberg MD Primary Care Provider Active Start: February 26, 2025 End: February 26, 2025 Dr. Steffen Eisenberg MD Referring Provider Active Start: February 26, 2025 End: February 26, 2025 Dr. Apple Lao MD Attending Provider Active Start: February 26, 2025 End: February 26, 2025 Team Status: Active Member Role Status Dates Dr. Steffen Eisenberg MD Primary Care Provider Active Start: February 26, 2025 Dr. Apple Lao MD Attending Provider Active Start: February 26, 2025 Dr. Apple Lao MD Referring Provider Active Start: February 26, 2025 Goals (unrecognized section and content) Goals may be documented in a n alternate sectionGoals may be documented in an alternate section Source Comments (unrecognize d section and content) In the event this informatio n is protected by the Federal Confidentiality of Alcohol and Drug Abuse Patient Records regulations: The Federal rules restrict any use of the information to criminally investigate or prosecute any alcohol or drug abuse patient.[facility] the event this information is protected by the Federal Confidentiality of Alcohol and Drug Abuse Patient Records regulations: The Federal rules restrict any use of the information to criminally investigate or prosecute any alcohol or drug abuse patient.[facility] FOR RECORDS PERTAINING TO PATIENTS WHO ARE OR HAVE BEEN ENROLLED IN A CHEMICAL DEPENDENCY/SUBSTANCEABUSE PROGRAM, SOME INFORMATION MAY BE OMITTED. This clinical summary was aggregated from multiple sources. Caution should be exercised in using it in the provision of clinical care. This summary normalizes information from multiple sources, and as a consequence, information in this document may materially change the coding, format and clinical context of patient data. In addition, data may be omitted in some cases. CLINICAL DECISIONS SHOULD BE BASED ON THE PRIMARY CLINICAL RECORDS. [facility] [employer] [facility]. provides no warranty or guarantee of the accuracy or completeness of information in this document.
[2025-03-05 07:21] LABS: Glucose GTT-Gestation. Fasting 85 mg/dL (<105)
[2025-03-05 10:06] LABS: Glucose GTT-Gestational 1 Hr 150 mg/dL (<190)
[2025-03-05 10:56] LABS: Glucose GTT-Gestational 2 Hr 148 mg/dL (<165)
[2025-03-05 12:18] LABS: Glucose GTT-Gestational 3 Hr 60 L (<145)
== END | disposition home or self-care (01) ==
LOC: LAB 06:52
PROVIDERS: PCP Internal Medicine; Referring Provider Advanced Practice Midwife; Visit Provider Advanced Practice Midwife
DX: Z13.1 Encounter for screening for diabetes mellitus (principal)
CPT/HCPCS: 36415; 82951; 82952

== ENCOUNTER → 2025-03-10 | Outpatient (CLI) | payer BC, SELFPAY | END | disposition home or self-care (01) | LOC: LABSPEC 15:59 | PROVIDERS: PCP Internal Medicine; Referring Provider Obstetrics & Gynecology; Visit Provider Obstetrics & Gynecology | DX: O47.00 False labor before 37 completed weeks of gestation, unspecified trimester (principal); Z3A.00 Weeks of gestation of pregnancy not specified | CPT/HCPCS: 87070; 87205 ==

== ENCOUNTER → 2025-04-07 | Outpatient (CLI) | payer BC, SELFPAY ==
[2025-04-07 13:23] LABS: AST(SGOT) 19 U/L (<=31); Alanine Aminotransfer ALT/SGPT 21 U/L (<=34); Albumin, Serum 3.6 g/dL (3.5-5.0); Alkaline Phosphatase 146 U/L (35-104); Anion Gap 12 (5-15); BUN 4 mg/dL (4-19); BUN/Creat Ratio 7.7 RATIO (10-20); Calcium,Total 9.2 mg/dL (7.6-11.0); Carbon Dioxide 19.0 mmol/L (21.0-32.0); Chloride 107 mmol/L (98-108); Globulin 3.4 g/dL (2.2-4.2); Glucose 85 mg/dL (70-99); Potassium 4.0 mmol/L (3.3-5.1)
== END | disposition home or self-care (01) ==
LOC: BWCLAB 10:57
PROVIDERS: PCP Internal Medicine; Referring Provider Obstetrics & Gynecology; Visit Provider Obstetrics & Gynecology
DX: L29.9 Pruritus, unspecified (principal)
CPT/HCPCS: 36415; 80053

== ENCOUNTER → 2025-04-15 | Outpatient (CLI) | payer BC, SELFPAY ==
--- NOTE | 2025-04-15 13:23 | US_ITS ---
PROCEDURE: OB BIOPHYSICAL PROF W/O NST 04/15/2025 REASON FOR EXAM: WELLBEING TECHNIQUE: OB BIOPHYSICAL PROF W/O NST COMPARISON: None FINDINGS LMP: August 12, 2025. Number: 1 Position: Vertex Placental Position: Posterior and not low-lying. Placental Abnormalities: No evidence of previa. ESTIMATED GESTATIONAL AGE: Baseline: 35 weeks and 1 day ESTIMATED DATE OF DELIVERY: Baseline: May 19, 2025. BIOPHYSICAL ASSESSMENT: Amniotic Fluid Volume: 6.8 cm Amniotic Fluid Index: 14.7 (8-24 cm normal range) Cardiac Motion: 147 beats per minute (average) Trunk and Limb Motion: Present. MATERNAL ANATOMY: Adnexa: Neither maternal ovary is successfully identified. Biophysical profile: Breathing movements: 2 Gross body movements: 2 tone: 2 Amniotic fluid index: 2 Total score: 8/8 US/OB Biophysical Prof W/O NST IMPRESSION: Normal biophysical profile. Reading Location: [place] [address]
== END | disposition home or self-care (01) ==
PROVIDERS: PCP Internal Medicine; Referring Provider Obstetrics & Gynecology; Visit Provider Obstetrics & Gynecology
DX: O99.210 Obesity complicating pregnancy, unspecified trimester (principal); Z3A.00 Weeks of gestation of pregnancy not specified
CPT/HCPCS: 76819

== ENCOUNTER 2025-04-19 08:47 | Outpatient (CLI) | payer BC, SELFPAY ==
[2025-04-19] VITALS (10 sets, daily range): BP systolic 132; BP diastolic 80; PULSE 106–126; RESP 20; TEMP 36.9; O2SAT 96–100; BMI 49.2
--- NOTE | 2025-04-19 08:49 | US_ITS ---
PROCEDURE: OB BIOPHYSICAL PROF W/O NST 04/19/2025 REASON FOR EXAM: WELLBEING TECHNIQUE: OB BIOPHYSICAL PROF W/O NST FINDINGS Number: 1 Position: Placental Position: Posterior, but not low-lying Placental Abnormalities: Grade 1. No abnormalities. DIMENSIONS: Biparietal Diameter: / Head Circumference: / Abdominal Circumference: / Femur Length: / ESTIMATED WEIGHT: ESTIMATED WEIGHT PERCENTILE (24+ weeks): ESTIMATED GESTATIONAL AGE: Baseline: By Ultrasound: ESTIMATED DATE OF DELIVERY: Baseline: 35 weeks, 5 days with estimated due date of May 19, 2025 BIOPHYSICAL ASSESSMENT: Breathing movements: 0 Amniotic Fluid Volume: Normal. Largest vertical pocket: 6 cm. Amniotic Fluid Index: 17.5 (8-24 cm normal range) Cardiac Motion: 139 beats per minute (average) Trunk and Limb Motion: Present. US/OB Biophysical Prof W/O NST IMPRESSION: Biophysical profile score 6/8 Verbal report given to KIM Castro at referring doctor's office. Patient taken to labor and delivery. Reading Location: [place]
--- NOTE | 2025-04-19 15:42 | OB.TRI.PN ---
Progress Notes Date of Service: 04/19/25 Progress Note: Patient presents for triage evaluation secondary to BPP 6/8 at 35 weeks. FHT: 145 Moderate variability reactive no decelerations category I tracing [place]: no Contractions Assessment and plan: BPP 6/8 with Reactive NST for total score of 8/10, reassuring maternal and status patient discharged to home to follow-up at next appt. See problem list details for additional plan information. Charges/Coding Multi Select Codes Urinary/Genital Urinary/Genital CPT Codes: 63027-21 non-stress test Interp Assessment & Plan (1) Conceived by in vitro fertilization: COMMENT: growth and NSTs at 36 weeks. deliver by 39. Transferred male embryo - embryo tested (2) H/O biophysical profile with non-stress test: COMMENT: 03/07 (3) AMA (advanced maternal age) multigravida 35+: (4) H/O section: COMMENT: x1, 2020. desires repeat C/S: RLTCS 05/12/25 JV. (5) Abnormal glucose affecting : COMMENT: passed 3 hour gtt (6) Itching: (7) Family history of genetic disorder: COMMENT: FOB w/ Shaw Muscular Dystrophy (X Chromosome linked) FOB adopted with limited medical history (8) Marijuana use: COMMENT: Last use: May 2024; Pt informed of random tox screens (9) Obesity affecting : COMMENT: BMI 47.5; twice weekly BPPs at 34 weeks-HgBA1C ordered (10) Rh negative status during : COMMENT: B-, Needs Rhogam @ 28 weeks (11) Supervision of high-risk : COMMENT: PRR, , ANTONIO 05/19/25,boy PC: Larry, : [place] (12) : QUALIFIERS: Weeks of gestation: 34 weeks Qualified Code(s): Z3A.34 - 34 weeks gestation of COMMENT: Discussed genetic/carrier testing - declines d/t embryo tested prior to transfer, nl anatomy. echo normal. (13) Sleep apnea: (14) Infertility associated with anovulation:
== END 2025-04-19 10:33 | disposition home or self-care (01) ==
LOC: OPUS 08:48 → WPOUT 09:46 → WP 09:47
PROVIDERS: PCP Internal Medicine; Referring Provider Advanced Practice Midwife; Visit Provider Advanced Practice Midwife
DX: O28.8 Other abnormal findings on antenatal screening of mother (principal); Z3A.35 35 weeks gestation of pregnancy
CPT/HCPCS: 59025; 76819; 99221; G0378

== ENCOUNTER → 2025-04-22 | Outpatient (CLI) | payer BC, SELFPAY ==
--- NOTE | 2025-04-22 08:55 | US_ITS ---
PROCEDURE: OB BIOPHYSICAL PROF W/O NST 04/22/2025 REASON FOR EXAM: WELLBEING TECHNIQUE: OB BIOPHYSICAL PROF W/O NST COMPARISON: Prior sonogram dated April 19, 2025. FINDINGS Number: 1 Position: Vertex Placental Position: Posterior and not low-lying Placental Abnormalities: No evidence of previa. ESTIMATED GESTATIONAL AGE: Baseline: 36 weeks and 1 day ESTIMATED DATE OF DELIVERY: Baseline: May 19, 2025 BIOPHYSICAL ASSESSMENT: Amniotic Fluid Volume: 6 cm Amniotic Fluid Index: 19.8 (8-24 cm normal range) Cardiac Motion: 150 beats per minute (average) Trunk and Limb Motion: Present. MATERNAL ANATOMY: Adnexa: Neither maternal ovary is successfully identified. Biophysical profile: Breathing movements: 2 Gross body movements: 2 tone: 2 Amniotic fluid volume: 2 Total score: 8/8 US/OB Biophysical Prof W/O NST IMPRESSION: Normal biophysical profile. Reading Location: [id number]
== END | disposition home or self-care (01) ==
LOC: OPUS 08:53
PROVIDERS: PCP Internal Medicine; Referring Provider Obstetrics & Gynecology; Visit Provider Obstetrics & Gynecology
DX: O99.210 Obesity complicating pregnancy, unspecified trimester (principal); Z3A.00 Weeks of gestation of pregnancy not specified
CPT/HCPCS: 76819

== ENCOUNTER → 2025-04-28 | Outpatient (CLI) | payer BC, SELFPAY | END | disposition home or self-care (01) | LOC: LABSPEC 15:57 | PROVIDERS: PCP Internal Medicine; Visit Provider Obstetrics & Gynecology | DX: O09.90 Supervision of high risk pregnancy, unspecified, unspecified trimester (principal); Z3A.00 Weeks of gestation of pregnancy not specified | CPT/HCPCS: 87077; 87081; 87186 ==

== ENCOUNTER 2025-05-12 05:52 | Inpatient (IN) | payer BC, SELFPAY ==
[2025-05-12] VITALS (17 sets, daily range): BP systolic 89–124; BP diastolic 47–78; PULSE 70–88; RESP 14–16; TEMP 36.3–37.2; O2SAT 96–100; BMI 48.7
--- OUTSIDE RECORDS SUMMARY | 2025-05-12 05:39 | XMS RPT_ITS | CCD ---
Author Organization [facility] Care Team Providers Care Dredge Master Name Role Phone Marta Del Valle Unavailable Marta Liu Primary Care Provider [phone] Marta Del Valle Primary Care Provider Marta Del Valle Primary Care Provider MARTA DEL VALLE Primary Care MARLI Alexis Attending Unavailable WILL PRABHAKAR Attending Unavailable MARTA DEL VALLEBETH Primary Care REBECA Brady Primary Care Unavailable ANDREW BURCIAGA Admitting UnavailANDREW Cardoso Attending UnavailANDREW Cardoso Referring UnavailJulissa Petersen JJai Admitting Unavailable POMABRILNTSJulissa JJai Consulting Unavailable Julissa HERNANDEZ Attending Unavailable MARTA DEL VALLE [facility] Julissa Saleh Admitting Unavailable MARTA DEL VALLE Primary Care Marta Liu MD Primary Care Provider [phone] Marta Del Valle MD Primary Care Provider Faith Starkey MD Unavailable Marta Del Valle MD Primary Care Provider [phone] Lawrence Young MD Unavailable [phone] MARTA DEL VALLE Attending Unavailable DEL VALLE, [...] Attending Unavailable Dr. Edel Bullock Attending Provider JOSH, MARTA Referring Provider Unavailable Dr. Edel Bullock Referring Provider [phone] Dr. Edel Bullock Other Provider Care Physician, No Primary Primary Care Provider Unavailable Unavailable Primary Care Provider UnavailFaith Ny MD Unavailable Marta Del Valle MD Primary Care Provider [phone] Lawrence Young MD Unavailable Steffen Eisenberg MD [...] Care Unavailable Unavailable Primary Care Provider Unavailabl e Faina WOLEF, Dr. Crowder Primary Care Provider [phone] Dr. Steffen Eisenberg MD Referring Provider Dr. Edel Bullock DO Attending Provider Zander WOLFE, Dr. Jaffe Attending Provider [phone] Ld Fermin MD Emergency Provider Tashia WOLFE, Dr. Chiu Attending Provider Dr. Apple Lao MD Referring Provider Dr. Steffen Eisenberg MD Primary Care Provider 1(12 27) Dr. Steffen Eisenberg MD Referring Provider Dr. Edel Bullock DO Attending Provider Kiley Jain CNM Attending Provider [phone] Kiley Jain CNM Referring Provider [phone] Dr. Steffen Eisenberg MD Primary Care Provider 1(12 27) Dr. Edel Bullock DO Referring Provider Faina WOLFE, Dr. Crowder Primary Care Provider [phone] Fania WOLFE, Dr. Crowder Referring Provider Twan Diehl DO, Dr. Hollingsworth Attending Provider Twan Diehl DO, Dr. Hollingsworth Other Provider [phone] Kiley Jain CNM Other Provider [phone] Faina WOLFE, Dr. Crowder Primary Care Provider [phone] Faina WOLFE, Dr. Crowder Referring Provider Tashia WOLFE, Dr. Chiu Attending Provider [place], Steffen Primary Care Unavailable Kiley Jain Attending Unavailable Kiley Jain Referring Unavailable [place], Steffen Attending Unavailable [place], Steffen Primary Care Unavailable Faina, Steffen Primary Care Unavailable Edel Bullock Attending Unavailabl e Vande VelEdel gómez Referring Unavailabl e Vande Velde, Edel Attending Unavailabl e Faina, Steffen Referring Unavailable [place], Steffen Primary Care Unavailable Edel Bullock Attending Unavailabl e [place], Steffen Primary Care Unavailable Kostase Edel Diehl Attending Unavailabl e [place], Steffen Primary Care Unavailable Edel Bullock Referring Unavailabl e Vande VeldeEdel Attending Unavailabl e Faina, Steffen Primary Care Unavailable Edel Bullock Referring Unavailabl e Kiley Jain Attending Unavailable Kiley Jain Referring Unavailable [place], Steffen Primary Care Unavailable Edel Bullock Consulting Unavailabl e Vande VeldeEdel Attending Unavailabl e [place], Steffen Primary Care Unavailable Edel Bullock Referring Unavailabl e [place], Steffen Referring Unavailable Kilye Jain Attending Unavailable [place], Steffen Primary Care Unavailable [place], Steffen Primary Care Unavailable [place], Steffen Referring Unavailable VandEdel Logan Attending Unavailabl e Care Physician, No Primary Primary Care Unava ilable Care Physician, No Primary Referring Unava ilable Faina, Steffen Attending Unavailable Faina, Steffen Referring Unavailable Faina, Steffen Primary Care Unavailable Edel Bullock Attending Unavailabl e Care Physician, No Primary Primary Care Unava ilable Levon Braxton Attending Unavailable Levon Braxton Referring Unavailable Faina, Steffen Primary Care Unavailable Ld Fermin Attending Unavailable Faina, Steffen Primary Care Unavailable Apple Lao Attending Unavailable Apple Lao Referring Unavailable Kiley Jain Attending Unavailable Kiley Jain Referring Unavailable Faina, Steffen Primary Care Unavailable Faina, Steffen Referring Unavailable [place], Steffen Attending Unavailable Faina, Steffen Primary Care Unavailable [place], Steffen Primary Care Unavailable Faina, Steffen Referring Unavailable Edel Bullock Attending Unavailabl e Edel Bullock Attending Unavailabl e Faina, Steffen Referring Unavailable [place], Steffen Primary Care Unavailable [place], Steffen Referring Unavailable Apple Lao Attending Unavailable [place], Steffen Primary Care Unavailable Faina, Steffen Primary Care Unavailable Edel Bullock Attending Unavailabl e [place], Steffen Referring Unavailable Faina, Steffen Primary Care Unavailable Edel Bullock Attending Unavailabl e Care Physician, No Primary Primary Care Unava ilable Faina, Steffen Referring Unavailable Faina, Steffen Attending Unavailable Faina, Steffen Referring Unavailable Faina, Steffen Primary Care Unavailable Apple Lao Attending Unavailable [place], Steffen Referring Unavailable Faina, Steffen Primary Care Unavailable Edel Bullock Attending Unavailabl e Faina, Steffen Referring Unavailable Faina, Steffen Primary Care Unavailable Apple Lao Attending Unavailable Kiley Jain Attending Unavailable Kiley Jain Referring Unavailable Faina, Steffen Primary Care Unavailable Edel Bullock Consulting UnavailKiley Durán Consulting Unavailable Aida Shields Attending Unavailable Faina, Steffen Primary Care Unavailable [place], Steffen Primary Care Unavailable Edel Bullock Attending Unavailabl e [place], Steffen Referring Unavailable Faina, Steffen Primary Care Unavailable EDEL ROCK Referring Unavailab le FAINA, STEFFEN G Primary Care Unavailable TANNA KIMBALL Attending Unavailable SAAD BRADLEY Attending Unavailable KOSTASEVEDEL ALDANA Referring Unavailab le FAINA, STEFFEN G Primary Care Unavailable EDEL ROCK Referring Unavailab EDEL Norman Attending Unavailable FAINA, STEFFEN G Primary Care Unavailable EDEL ROCK Referring Unavailab EDEL Norman Attending Unavailable FAINA, STEFFEN G Primary Care Unavailable NO PRIMARY CARE, Primary Care Unavailable OSMANI LLANES Attending Unavailable EDEL ROCK Referring Unavailab OSMANI Francisco Attending Unavailable NO PRIMARY CARE, Primary Care Unavailable EDEL ROCK Referring Unavailab OSMANI Francisco Attending Unavailable NO PRIMARY CARE, Primary Care Unavailable OSMANI LLANES Referring Unavailable NO PRIMARY CARE, Primary Care Unavailable EDEL ROCK Referring Unavailab SANTA Sarkar Attending Unavailable NO PRIMARY CARE, Primary Care Unavailable EDEL ROCK Referring Unavailab nayely AMANZALONZO MosleyA C Attending Unavailable EDEL ROCK Referring Unavailab le FAINA, STEFFEN G Primary Care Unavailable TANNA KIMBALL Attending Unavailable Allergies Allergy Classification Reported Allergen(s) Allergy Type Date of Onset Reaction(s) Facility (13 sources) Amoxicillin; Translations: [AMOXICILLIN] Drug Allergy 1 Diarrhea, GI Intolerance [facility] (2 sources) ALLERGIES NOT ON FILE; Translations: [ALLERGIES NOT ON FILE] Propensity to adverse reactions (disorder) [facility] 2 Repository Medications Current Medications Medication Drug Class(es) Dates Sig (Normalized) Sig (Original) [id number] 200 actuat albuterol 0.09 mg/actuat metered dose [...] on above: Take 1 tablet by claude two times a day for 7 days. aspirin 81 mg oral tablet (9 sources) Platelet Aggregation Inhibitor, Nonsteroidal Anti-inflammatory Drug Start: 04-19-2025 take 1 tablet by mouth once daily Aspirin 81 mg tablet Active 81 mg PO DAILY April 19, 2025 12:00am Start: 03-18-2019 End: 03-19-2019 aspirin chewable tablet 324 mg take 81 mg by mouth once daily A SPIRIN 81 PO Take 81 mg by mouth daily. 0 Active azelaic acid 0.15 mg/mg topical gel (1 [...] on above: Take 1 capsule by mo [facility] three times a day as needed for up to 7 days. Breast Pump device (15 sources) Start: 01-29-2025 Breast Pump device Active 0 .ROUTE .MEDSUPPLY 1 0 January 29, 2025 12:00am As directed Start: 01-29-2025 Breast Pump de vice Active 0 .ROUTE .MEDSUPPLY 1 January 29, 2025 12:00am As directed Desogestrel [...] daily. docosahexaenoic acid 200 mg oral capsule (20 sources) Start: 11-04-19 End: 07-28-20 take 1 capsule by mouth once daily Docosahexaenoic Acid ( Dha) 200 mg capsule Active 200 mg PO DAILY July 28, 2024 12:02pm escitalopram 10 mg oral tablet (20 sources) Serotonin Reuptake Inhibitor Start: 11-04-19 End: 07-20-20 take 1 tablet by mouth once daily Escitalopram Oxalate (Lexapro) 10 mg tablet Active 10 mg PO DAILY 30 July 20, 2024 3:09pm Start: 01-06-2023 take [...] 1 tablet by claude th every afternoon. Glucose (1 source) Start: 03-08-20 take 50 g by mouth once for diabetes mellitus Glucose Liquid Indications: Screening for diabetes mellitus Take 50 g by mouth once for 1 dose. 50 g 0 03/08/2021 Active hydrOXYzine pamoate 25 mg oral capsule (8 sources) Antihistamine Start: 03-19-20 19 take 1 capsule by mouth three times [...] mouth. levothyroxine sodium 0.025 mg oral tablet (20 sources) l-Thyroxine Start: 07-20-20 End: 10-14-19 take 1 tablet by mouth once daily Levothyroxine (Synthroid) 25 mcg tablet Active 25 ug PO daily October 15, 2024 12:24am Magnesium (7 sources) Start: 04-19-20 take 1 tablet by mouth once daily Magnesium 200 mg tablet Active 200 mg PO DAILY April 19, 2025 12:00am ondansetron 4 mg disintegrating oral tablet (5 [...] CAPSU LE BY MOUTH EVERY DAY vit 53-gsxr-qzsvq-dha ( + DHA) 28 mg iron- 975 mcg-200 mg Cmpk (2 sources) Start: 09-02-2019 take 1 capsule by mouth once daily vit 64-cuae-ohikt-dha ( + DHA) 28 mg iron- 975 mcg-200 mg Cmpk Take 1 capsule by mouth daily . 0 09/02/2019 Active Vit-Fe Ecq-ML-Rgbpk (PNV Plus Multivit+DHA) 27-1 & 312 MG Misc (4 sources) Start: 07-29-2024 Vit-Fe Mzg-OE-Cqhnk (PNV Plus Multivit+DHA) 27-1 & 312 MG Misc 1 tab + 1 cap daily. Due for yearly follow up - must be seen to get additional refills 180 Each 07/29/2024 Active Start: 10-29-2023 End: 07-29-2024 take 1 tablet by mouth once daily Vit-Fe Ayt-GL-Sbejp (PNV Plus Multivit+DHA) 27-1 & 312 MG Misc TAKE 1 TAB & 1 CAPSULE BY MOUTH EVERY DAY 180 Each 1 10/29/2023 07/29/2024 Discontinued Start: 07-03-2022 End: 09-27-2022 take 1 tablet by mouth once daily Vit-Fe Jvu-ER-Czdpm (PNV Plus Multivit+DHA) 27-1 & 312 MG Misc TAKE 1 TAB & 1 CAPSULE BY MOUTH EVERY DAY 0 07/03/2022 09/27/2022 Discontinued (Reorder) Start: 07-03-2022 take 1 tablet by claude th once daily Vit-Fe Fkb-PX-Hcajl (PNV Plus Multivit+DHA) 27-1 & 312 MG [...] on formulary 90 tablet 3 09/27/2022 Active Completed/Discontinued Medications Medication Drug Class(es) Dates Sig (Normalized) Sig (Original) dextromethorphan hydrobromide 3 mg/ml / promethazine hydrochloride 1.25 mg/ml oral solution (2 sources) Phenothiazine, Uncompetitive I-brtedw-S-[place]part[place] te Receptor Antagonist, Sigma-1 Agonist Start: 08-10-2022 End: 09-27-2022 promethazine-dextro methorphan 6.25-15 MG/5ML Syrup Indications: Post-viral cough syndrome Take 5 mL by mouth at bedtime as needed for Cough. 60 mL 0 08/10/2022 09/27/2022 Discontinued (Therapy completed) diphenhydrAMINE hydrochloride 25 mg oral capsule (15 sources) Histamine-1 Receptor Antagonist Start: 10-02-2024 End: 11-05-2024 take 1 capsule by mouth at bedtime as needed Diphenhydramine Hcl (Benadryl) 25 mg capsule Discontinued 25 mg PO AT BEDTIME as needed October 02, 2024 1:00am November 05, 2024 3:32pm estradiol 2 mg oral tablet (15 sources) Estrogen Start: 10-02-2024 End: 11-05-2024 take 1 tablet by mouth once daily Estradiol 2 mg tablet Discontinued 2 mg PO daily October 02, 2024 1:00am November 05, 2024 3:32pm famotidine 40 mg oral tablet (20 sources) Histamine-2 Receptor Antagonist Start: 10-07-2023 End: 01-11-2025 take 1 tablet by mouth once daily Famotidine (Pepcid) 40 mg tablet Discontinued 40 mg PO DAILY 30 July 20, 2024 3:09pm January 11, 2025 8:44am Start: 09-27-2021 End: [...] 07-23-2019 famotidine (PE PCID) 40 MG tablet 1 ml ketorolac tromethamine 30 mg/ml injection (1 source) Nonsteroidal Anti-inflammatory Drug, Cyclooxygenase Inhibitor Start: 03-19-2019 End: 03-19-2019 ketorolac (TORADOL) injection 30 mg letrozole 2.5 mg oral tablet (20 sources) Aromatase Inhibitor Start: 01-22-2024 End: 07-20-2024 take 3 tablets by mouth once daily Letrozole 2.5 mg tablet Discontinued 5 mg PO DAILY 10 5 January 22, 2024 12:00am July 20, 2024 2:18pm [...] mL solution loratadine 10 mg oral tablet (15 sources) Start: 10-02-2024 End: 11-05-2024 take 1 tablet by mouth once daily Loratadine (Claritin) 10 mg tablet Discontinued 10 mg PO daily October 02, 2024 1:00am November 05, 2024 3:32pm LORazepam 1 mg oral tablet (16 sources) Benzodiazepine Start: 12-02-2023 End: 07-20-2024 Lorazepam (Ativan) 1 mg tablet Discontinued 1 mg PO ONCE 1 0 December 02, 2023 1:00am July 20, 2024 2:19pm take 30 minutes prior to procedure medroxyPROGESTERone acetate 5 mg oral tablet (15 sources) Progestin Start: 01-22-2024 End: 07-20-2024 take 1 tablet by mouth once daily Medroxyprogesterone 5 mg tablet Discontinued 5 mg PO DAILY 7 January 22, 2024 12:00am July 20, 2024 2:19pm omeprazole 20 mg delayed release oral capsule (3 sources) Proton Pump Inhibitor End: 03-18-2019 take 1 capsule by mouth once daily omeprazole (PRILOSEC) 20 MG capsule Take 20 mg by mouth daily. 0 03/18/2019 Discontinued progesterone 100 mg vaginal insert (20 sources) Progesterone Start: 10-02-2024 End: 11-05-2024 inject 75 mg by intramuscular injection once daily Progesterone 50 mg/mL oil Discontinued 75 mg IM daily October 02, 2024 1:00am November 05, 2024 3:32pm Start: 10-02-2024 End: 11-05-2024 Progesterone Micronized (End ometrin) 100 mg insert Discontinued 1 NMA VAGINAL THREE TIMES A DAY October 02, 2024 1:00am November 05, 2024 3:32pm promethazine hydrochloride 25 mg oral tablet (15 sources) Phenothiazine Start: 12-17-2024 End: 04-19-2025 take 1 tablet by mouth every six hours as needed for headache Promethazine 25 mg tablet Discontinued 25 mg PO EVERY 6 HOURS as needed for headache 30 December 17, 2024 12:00am April 19, 2025 10:07am Problems Active Problems Problem Classification Problem Date Documented Date Episodic/Chronic Anxiety disorders (20 sources) Generalized anxiety disorder; Translations: [Generalized anxiety disorder] Onset: 08-23-2014 07-31-2018 Chronic Cardiac dysrhythmias (20 sources) Palpitations; Translations: [Palpitations] Onset: 12-01-2015 01-30-2016 Episodic Diabetes or abnormal glucose tolerance complicating ; childbirth; or the puerperium (20 sources) Abnormal glucose level; Translations: [Abnormal glucose complicating ] Onset: 04-20-2025 03-01-2025 Episodic Comment on above: needs 3 hour gtt passed 3 hour gtt Early or threatened labor (1 source) False labor before 37 completed weeks of gestation, unspecified trimester; Translations: [False labor before 37 completed weeks of gestation, unspecified trimester] Onset: 03-12-2025 Episodic Esophageal disorders (20 sources) Gastroesophageal reflux disease; Translations: [Gastro-esophageal reflux disease without esophagitis] Onset: 12-09-2013 07-31-2018 Chronic Female infertility (20 sources) Female infertility associated with anovulation; Translations: [Female infertility associated with anovulation] Onset: 04-20-2025 11-04-2023 Chronic Fluid and electrolyte disorders (15 sources) Mild dehydration; Translations: [Dehydration] 11-18-2024 Episodic Immunizations and screening for infectious disease (3 sources) Contact with and (suspected) exposure to other viral communicable diseases; Translations: [Needs influenza immunization] Onset: 03-10-2025 Episodic Menstrual disorders (10 sources) Dysmenorrhea; Translations: [...] disorders of ] Episodic Other complications of (20 sources) Maternal obesity complicating , childbirth and the puerperium, antepartum; Translations: [Obesity complicating , unspecified trimester] 10-09-2024 Chronic Comment on above: BMI 47.5; BPPs at 34 weeks-HgBA1C ordered BMI 47.5; twice week ly BPPs at 34 weeks-HgBA1C ordered Other complications of (2 sources) Obesity complicating , unspecified trimester; Translations: [Obesity complicating , unspecified trimester] Onset: 04-28-2025 Chronic Other complications of (20 sources) RhD negative; Translations: [Other specified related conditions, unspecified trimester] Onset: 12-08-2020 Resolved: 09-27-2022 12-08-2020 Episodic Comment on above: B-, Needs Rhogam @ 2 8 weeks Other complications of (8 sources) Group B Streptococcus carrier; Translations: [Streptococcus B carrier state complicating ] Onset: 06-23-2021 Resolved: 09-27-2021 09-27-2021 Episodic Comment on above: treat in labor Other complications of (2 sources) Supervision of with history of infertility, unspecified trimester; Translations: [Supervision of with history of infertility, unspecified trimester] Onset: 10-02-2024 Episodic Other complications of (20 sources) Multigravida of advanced maternal age; Translations: [Supervision of elderly multigravida, unspecified trimester] 10-02-2024 Episodic Other complications of (20 sources) High risk ; Translations: [Supervision of high risk , unspecified, unspecified trimester] 01-01-2025 Episodic Comment on above: PRR, , ANTONIO 05/19,boy PC: Larry, : [place] Other complications of (2 sources) Supervision of high risk , unspecified, unspecified trimester; Translations: [Supervision of high risk , unspecified, unspecified trimester] Onset: 04-29-2025 Episodic Other complications of (2 sources) Supervision of elderly multigravida, unspecified trimester; Translations: [Supervision of elderly multigravida, unspecified trimester] Onset: 04-20-2025 Episodic Other complications of (2 sources) Other specified related conditions, unspecified trimester; Translations: [Other specified related conditions, unspecified trimester] Onset: 04-20-2025 Episodic Other complications of (1 source) Other abnormal findings on screening of mother; Translations: [Other abnormal findings on screening of mother] Onset: 04-29-2025 Episodic Other endocrine disorders (20 sources) Polycystic ovary syndrome; Translations: [Polycystic ovarian syndrome] 11-04-2023 Chronic Other endocrine disorders (3 sources) Polycystic ovarian syndrome; Translations: [Polycystic ovaries] Onset: 04-20-2025 11-04-2023 Chronic Other inflammatory condition of skin (20 sources) Itching ; Translations: [Pruritus, unspecified] 04-07-2025 Episodic Other inflammatory condition of skin (2 sources) Pruritus, unspecified; Translations: [Pruritus, unspecified] Onset: 04-20-2025 Episodic Other lower respiratory disease (3 sources) Cough; Translations: [Acute cough] Onset: 08-10-2022 Episodic Other nutritional; endocrine; and metabolic disorders (5 sources) Morbid obesity; Translations: [Morbid (severe) obesity due to excess calories] Onset: 07-31-2018 Resolved: 09-28-2020 07-31-2018 Chronic Other nutritional; endocrine; and metabolic disorders (20 sources) Body mass index 40+ - severely [...] conditions (not mental disorders or infectious disease) (8 sources) Elevated C-reactive protein; Translations: [Elevated C-reactive [...] devices] Onset: 11-13-2024 Chronic Residual codes; unclassified (20 sources) Sleep apnea; Translations: [Sleep apnea, unspecified] 10-02-2024 Chronic Residual codes; unclassified (2 sources) Sleep apnea, unspecified; Translations: [Sleep apnea, unspecified] Onset: 04-20-2025 Chronic Residual codes; unclassified (1 source) Hypersomnia, unspecified; Translations: [Hypersomnia, unspecified] Onset: 07-20-2024 Chronic Residual codes; unclassified (15 sources) Infertile 10-02-2024 Episodic Comment on above: HSG Residual codes; unclassified (20 sources) Conceived by in vitro fertilization; Translations: [Other specified health status] 10-09-2024 Episodic Comment on above: growth and NSTs at 3 6 weeks. deliver by 39. Transferred male embryo - embryo tested Residual codes; unclassified (20 sources) Family history of hereditary disease; Translations: [Family history of other specified conditions] 10-02-2024 Episodic Comment on above: FOB w/ Shaw Muscul ar Dystrophy (X Chromosome linked)FOB adopted with limited medical history Residual codes; unclassified (6 sources) Past history of procedure; Translations: [Personal history of other medical treatment] 04-19-2025 Episodic Residual codes; unclassified (2 sources) Other specified health status; Translations: [Other specified health status] Onset: 04-29-2025 Episodic Residual codes; unclassified (2 sources) Family history of other specified conditions; Translations: [Family history of other specified conditions] Onset: 04-20-2025 Episodic Residual codes; unclassified (2 sources) Unspecified blood type, Rh negative; Translations: [Unspecified blood type, Rh negative] Onset: 04-20-2025 Episodic Residual codes; unclassified (2 sources) History of uterine scar from previous surgery; Translations: [History of uterine scar from previous surgery] Onset: 04-20-2025 Episodic Residual codes; unclassified (2 sources) 34 weeks gestation of ; Translations: [34 weeks gestation of ] Onset: 04-20-2025 Episodic Residual codes; unclassified (1 source) Personal history of other medical treatment; Translations: [Personal history of other medical treatment] Onset: 04-29-2025 Episodic Residual codes; unclassified (1 source) 28 weeks gestation of ; Translations: [28 weeks gestation of ] Onset: 02-26-2025 Episodic Substance-related disorders (20 sources) Marijuana user; Translations: [Cannabis use, unspecified, uncomplicated] Onset: 11-05-2024 10-02-2024 Episodic Comment on above: Last use: May 2024; Pt informed of random tox screens Syncope (15 sources) Vasovagal syncope; Translations: [Syncope and collapse] 11-18-2024 [...] Resolved: 09-27-2022 09-27-2022 Episodic Other complications of (1 source) Supervision [...] Test Name Value Interpretation Reference Range Facility Stitch Bonding Machine Drawer In Office Visit Reporton 05-06-2025 Stitch Bonding Machine Drawer In Office Visit Report [facility] [address], [address] [place] [address] OFFICE VISIT Date of Service: 05/06/25 MR#: [id number] Acct: [id number] Name: BARBY CABALLERO Rep #: [id number] : 1990 Provider: Dr. 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 Agency Appointments Required: No Is patient in pain?: No Allergies No Known Allergies Allergy (Verified 05/06/25 14:09) Medications ???Medication ???Instructions ???Recorded ???Confirmed ???Type escitalopram oxalate 10 mg tablet 10 mg PO DAILY #30 tabs 10/21/24 08/07/25 Rx (Lexapro) docosahexaenoic acid 200 mg 200 mg PO DAILY #90 caps 07/28/24 05/06/25 Rx capsule ( DHA) levothyroxine 25 mcg tablet 25 mcg PO QDAY #90 tabs 10/14/24 0 05/06/25 Rx (Synthroid) famotidine 40 mg tablet (Pepcid) 40 mg PO DAILY #30 tabs 01/11/25 0 05/06/25 Rx breast pump #1 ea 01/29/25 05/06/25 Rx aspirin 81 mg tablet 81 mg PO DAILY 04/19/25 05/06/25 H istory magnesium 200 mg tablet 200 mg PO DAILY 04/19/25 05/06/25 History Last Menstrual Period: 08/12/24 Zika: Zika virus [...] 1 current occupational status: unemployed current occupation: 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 Slow progression of labor w/ decels .. Failed vacuum delivery into emergency csec HPI 38 WK OB *CSECTION/JV Details: BARBY CABALLERO is a 34 year old who presents for routine OB visit. OB Visit ANTONIO Calculator Estimated Delivery Date Method Current WG Current Estimate 05/19/25 Conception 38w 1d Expected Delivery Route/Plan repeat c/s Specific [...] -???-???-???-???-??? -???-???-???-???-??? -???-???- Effaced St Visit Note (more content not included)... Normal [facility] Rule out Beta Strep (Grp. B) on 05-03-2025 RANJAN Rule out Beta Strep (Grp. B) Rule out Beta Strep (Grp. B) Streptococcus agalactiae (B) Amount Growth Growth Streptococcus agalactiae (B): REACTION Ampicillin Islt GUERA <=0.25 cefTRIAXone Islt GUERA <=0.12 S Clindamycin Islt GUERA <=0.25 S Clindamycin.induced Susc Islt NEG Linezolid Islt GUERA <=2 S Vancomycin Islt GUERA 0.5 S Normal [facility] Comment on above: Performed By: #### L 300.8000 #### [facility] Laboratory [address] [place], [place], [address] Laboratory - Chemistry and C hemistry - challengeOrdered By: Edel Diehl on 04-28-2025 Glucose Ql (U) Negative [facility] Laboratory - UrinalysisOrder ed By: Edel Diehl on 04-28-2025 Protein Ql (U) Negative [facility] Stitch Bonding Machine Drawer In Office Visit Reporton 04-28-2025 Stitch Bonding Machine Drawer In Office Visit Report [facility]'[address], [address] [place] [address] OFFICE VISIT Date of Service: 04/28/25 MR#: [id number] Acct: [id number] Name: BARBY CABALLERO Rep #: [id number] : 1990 Provider: Dr. Edel Dover DO Age/Sex: 34/F [place] [facility] [place]: Signed Intake Vital Signs 03/10/25 14:28 04/20/25 14:13 04/28/25 14:03 04/28/25 14:05 Height 5 ft 2 in 5 ft 2 in 5 ft 2 in 5 ft 2 in Weight: 268 lb 4 oz 265 lb 4 oz BMI 49.0 48.5 BP 116/81 H 123/86 H Intake Visit Reasons: 37 WK OB *CSECTION/JV Supervisor Agency Appointments Required: No Is patient in pain?: No Allergies No Known Allergies Allergy (Verified 04/28/25 14:03) Medications ???Medication ???Instructions ???Recorded ???Confirmed ???Type escitalopram oxalate 10 mg tablet 10 mg PO DAILY #30 tabs 07/20/24 04/28/25 Rx (Lexapro) docosahexaenoic acid 200 mg 200 mg PO DAILY #90 caps 07/28/24 04/28/25 Rx capsule ( DHA) levothyroxine 25 mcg tablet 25 mcg PO QDAY #90 tabs 10/14/24 0 04/28/25 Rx (Synthroid) famotidine 40 mg tablet (Pepcid) 40 mg PO DAILY #30 tabs 01/11/25 0 04/28/25 Rx breast pump #1 ea 01/29/25 04/28/25 Rx aspirin 81 mg tablet 81 mg PO DAILY 04/19/25 04/28/25 H istory magnesium 200 mg tablet 200 mg PO DAILY 04/19/25 04/28/25 History Last Menstrual Period: 08/12/24 Zika: Zika virus [...] 1 current occupational status: unemployed current occupation: 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 Date Name GA/Weeks Outcome Route Bth Weight Infant Gen Labor Lgth Anesthesia Del Locatn Provider FOB 07/18/21 Larry 40 live - full term 7lbs 7oz Male gene ral [facility] [place] Delivery Date: 07/18/21 Last Updated by: Aida Shields RN Induce d/t failure to progress naturally .. Slow progression of labor w/ decels .. Failed vacuum delivery into emergency csec HPI 37 WK OB *CSECTION/JV Details: BARBY CABALLERO is a 34 year old who presents for routine OB visit. OB Visit ANTONIO Calculator Estimated Delivery Date Method Current WG Current Estimate 05/19/25 Conception 37w 0d Expected Delivery Route/Plan repeat c/s Specific Issue/Plans [...] -???-???-???-???-??? -???-???-???-???-??? -???-???- Effaced St Visit Note (more content not included)... Normal [facility] Screening beta-hemolytic Str eptococcus cultureOrdered By: Edel Diehl on 04-28-2025 Beta-hemolytic Streptococcus culture Streptococcus agalactiae (B) Abnormal [facility] OB Biophysical Prof W/O NSTo n 04-22-2025 OB Biophysical Prof W/O NST [facility] Imaging Services [address] [place] [address] OB Biophysical Prof W/O NST MR#: [id number] Acct: [id number] Name: BARBY CABALLERO Rep #: [id number] : 1990 F 34 From: Francisco Javier cuevas MD PCP: Dr. Steffen Eisenberg MD Status: REG CLI Study: OB Biophysical Prof W/O NST Date of Exam: 03/31 01/22 Exam# [id number] Ordering Dr: Edel Bullock DO PROCEDURE: OB BIOPHYSICAL PROF W/O NST 04/22/2025 REASON FOR EXAM: WELLBEING TECHNIQUE: OB BIOPHYSICAL PROF W/O NST COMPARISON: Prior sonogram dated April 19, 2025. FINDINGS Number: 1 Position: Vertex Placental Position: Posterior and not low-lying Placental Abnormalities: No evidence of previa. ESTIMATED GESTATIONAL AGE: Baseline: 36 weeks and 1 day ESTIMATED DATE OF DELIVERY: Baseline: May 19, 2025 BIOPHYSICAL ASSESSMENT: Amniotic Fluid Volume: 6 cm Amniotic Fluid Index: 19.8 (8-24 cm normal range) Cardiac Motion: 150 beats per minute (average) Trunk and Limb Motion: Present. MATERNAL ANATOMY: Adnexa: Neither maternal ovary is successfully identified. Biophysical profile: Breathing movements: 2 Gross body movements: 2 tone: 2 Amniotic fluid volume: 2 Total score: 8/8 US/OB Biophysical Prof W/O NST IMPRESSION: Normal biophysical profile. Reading Location: [facility] CC: Dr. Steffen Eisenberg MD; Dr. Edel Bullock DO Airport Screener: Signed Normal [facility] Laboratory - Chemistry and C hemistry - challengeOrdered By: Apple Tashia on 04-20-2025 Glucose Ql (U) Negative [facility] Laboratory - UrinalysisOrder ed By: Apple Lao on 04-20-2025 Protein Ql (U) Negative [facility] Stitch Bonding Machine Drawer In Office Visit Reporton 04-20-2025 Stitch Bonding Machine Drawer In Office Visit Report [facility]'s [address], [address] [place] [address] OFFICE VISIT Date of Service: 04/20/25 MR#: [id number] Acct: [id number] Name: BARBY CABALLERO Rep #: [id number] : 1990 Provider: Dr. Apple martínez MD Age/Sex: 34/F Location[place] [facility] [place] Status: Signed Intake Vital Signs 01/29/25 10:30 04/19/25 10:03 04/20/25 14:13 Height 5 ft 2 in 5 ft 2 in 5 ft 2 in Weight: 268 lb 4 oz BMI 49.0 BP 116/81 H Intake Visit Reasons: 36 wk ob *Doc Only* Supervisor Agency Appointments Required: No Is patient in pain?: No Allergies No Known Allergies Allergy (Verified 04/20/25 14:14) Medications ???Medication ???Instructions ???Recorded ???Confirmed ???Type escitalopram oxalate 10 mg tablet 10 mg PO DAILY #30 tabs 07/20/24 04/20/25 Rx (Lexapro) docosahexaenoic acid 200 mg 200 mg PO DAILY #90 caps 07/28/24 04/20/25 Rx capsule ( DHA) levothyroxine 25 mcg tablet 25 mcg PO QDAY #90 tabs 10/14/24 0 04/20/25 Rx (Synthroid) famotidine 40 mg tablet (Pepcid) 40 mg PO DAILY #30 tabs 01/11/25 0 04/20/25 Rx breast pump #1 ea 01/29/25 04/20/25 Rx aspirin 81 mg tablet 81 mg PO DAILY 04/19/25 04/20/25 H istory magnesium 200 mg tablet 200 mg PO DAILY 04/19/25 04/20/25 History Last Menstrual Period: 08/12/24 Zika: Zika virus [...] 1 current occupational status: unemployed current occupation: 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 Date Name GA/Weeks Outcome Route Bth Weight Gen Labor Lgth Anesthesia Del Locatn Provider FOB 07/18/21 Larry 40 live - full term 7lbs 7oz Male gene ral [facility] [place] Delivery Date: 07/18/21 Last Updated by: Aida Shields RN Induce d/t failure to progress naturally .. Slow progression of labor w/ decels .. Failed vacuum delivery into emergency csec HPI 36 wk ob *Doc Only* Details: BARBY CABALLERO is a 34 year old who presents for routine OB visit. OB Visit ANTONIO Calculator Estimated Delivery Date Method Current WG Current Estimate 05/19/25 Conception 35w 6d Expected Delivery Route/Plan repeat c/s Specific Issue/Plans [...] St Visit Note 10/09/24 -???-???-???-???-??? -???-???-???-???-??? -???-???- 8 (more content not included)... Normal [facility] OB Biophysical Prof W/O NSTo n 04-19-2025 OB Biophysical Prof W/O NST [facility] Imaging Services [address] [place] [address] OB Biophysical Prof W/O NST MR#: [id number] Acct: [id number] Name: BARBY CABALLERO Rep #: [id number] : 1990 F 34 From: Rowdy Pedraza DO PCP: Dr. Steffen Eisenberg MD Status: DEP CLAren Study: OB Biophysical Prof W/O NST Date of Exam: 03/31 10/24 Exam# [id number] Ordering Dr: Edel Bullock DO PROCEDURE: OB BIOPHYSICAL PROF W/O NST 04/19/2025 REASON FOR EXAM: WELLBEING TECHNIQUE: OB BIOPHYSICAL PROF W/O NST FINDINGS Number: 1 Position: Placental Position: Posterior, but not low-lying Placental Abnormalities: Grade 1. No abnormalities. DIMENSIONS: Biparietal Diameter: / Head Circumference: / Abdominal Circumference: / Femur Length: / ESTIMATED WEIGHT: ESTIMATED WEIGHT PERCENTILE (24+ weeks): ESTIMATED GESTATIONAL AGE: Baseline: By Ultrasound: ESTIMATED DATE OF DELIVERY: Baseline: 35 weeks, 5 days with estimated due date of May 19, 2025 BIOPHYSICAL ASSESSMENT: Breathing movements: 0 Amniotic Fluid Volume: Normal. Largest vertical pocket: 6 cm. Amniotic Fluid Index: 17.5 (8-24 cm normal range) Cardiac Motion: 139 beats per minute (average) Trunk and Limb Motion: Present. US/OB Biophysical Prof W/O NST IMPRESSION: Biophysical profile score 6/8 Verbal report given to KIM Castro at referring doctor's office. Patient taken to labor and delivery. Reading Location: [facility] CC: Dr. Steffen Eisenberg MD; Dr. Edel Bullock DO Airport Screener: Signed Normal [facility] OB Triage Progress Noteon OB Triage Progress Note [facility] Medical Records Department [address] [place] [address] OB Triage Progress Note 04/19/25 1542 MR#: [id number] Acct: [id number] Name: BARBY CABALLERO Rep #: [id number] : 1990 34 From: Kiley Jain CNM PCP: Dr. Steffen Eisenberg MD Status:DEP MAGI Y DOS: Location: WPOUT Progress Notes Date of Service: 04/19/25 Progress Note: Patient presents for triage evaluation secondary to BPP 6/8 at 35 weeks. FHT: 145 Moderate variability reactive no decelerations category I tracing Riddle: no Contractions Assessment and plan: BPP 6/8 with Reactive NST for total score of 8/10, reassuring maternal and status patient discharged to home to follow-up at next appt. See problem list details for additional plan information. Charges/Coding Multi Select Codes Urinary/Genital Urinary/Genital CPT Codes: 51799-69 non-stress test Interp Assessment Plan (1) Conceived by in vitro fertilization: COMMENT: growth and NSTs at 36 weeks. deliver by 39. Transferred male embryo - embryo tested (2) H/O biophysical profile with non-stress test: COMMENT: 03/07 (3) AMA (advanced maternal age) multigravida 35+: (4) H/O section: COMMENT: x1, 2020. desires repeat C/S: RLTCS 05/12/25 JV. (5) Abnormal glucose affecting : COMMENT: passed 3 hour gtt (6) Itching: (7) Family history of genetic disorder: COMMENT: FOB w/ Shaw Muscular Dystrophy (X Chromosome linked) FOB adopted with limited medical history (8) Marijuana use: COMMENT: Last use: May 2024; Pt informed of random tox screens (9) Obesity affecting : COMMENT: BMI 47.5; twice weekly BPPs at 34 weeks-HgBA1C ordered (10) Rh negative status during : COMMENT: B-, Needs Rhogam @ 28 weeks (11) Supervision of high-risk : COMMENT: PRR, , ANTONIO 05/19/25,boy PC: Larry, : [place] (12) : QUALIFIERS: Weeks of gestation: 34 weeks Qualified Code(s): Z3A.34 - 34 weeks gestation of COMMENT: Discussed genetic/carrier testing - declines d/t embryo tested prior to transfer, nl anatomy. echo normal. (13) Sleep apnea: (14) Infertility associated with anovulation: 04/19/25 1547 Date Kiley Jain CNM Cosigner Signature (if applicable): Date _ CC: NU Jain; Dr. Steffen Eisenberg MD Signed Normal [facility] OB Biophysical Prof W/O NSTo n 04-15-2025 OB Biophysical Prof W/O NST [facility] Imaging Services [address] [place] [address] OB Biophysical Prof W/O NST MR#: [id number] Acct: [id number] Name: BARBY CABALLERO Rep #: [id number] : 1990 F 34 From: Francisco Javier cuevas MD PCP: Dr. Steffen Eisenberg MD Status: REG CLI Study: OB Biophysical Prof W/O NST Date of Exam: 03/30 04/23 Exam# [id number] Ordering Dr: Edel Bullock DO PROCEDURE: OB BIOPHYSICAL PROF W/O NST 04/15/2025 REASON FOR EXAM: WELLBEING TECHNIQUE: OB BIOPHYSICAL PROF W/O NST COMPARISON: None FINDINGS LMP: August 12, 2025. Number: 1 Position: Vertex Placental Position: Posterior and not low-lying. Placental Abnormalities: No evidence of previa. ESTIMATED GESTATIONAL AGE: Baseline: 35 weeks and 1 day ESTIMATED DATE OF DELIVERY: Baseline: May 19, 2025. BIOPHYSICAL ASSESSMENT: Amniotic Fluid Volume: 6.8 cm Amniotic Fluid Index: 14.7 (8-24 cm normal range) Cardiac Motion: 147 beats per minute (average) Trunk and Limb Motion: Present. MATERNAL ANATOMY: Adnexa: Neither maternal ovary is successfully identified. Biophysical profile: Breathing movements: 2 Gross body movements: 2 tone: 2 Amniotic fluid index: 2 Total score: 8/8 US/OB Biophysical Prof W/O NST IMPRESSION: Normal biophysical profile. Reading Location: [place] [address] CC: Dr. Steffen Eisenberg MD; Dr. Edel Bullock DO Airport Screener: Signed Normal [facility] L3410.9992on 04-08-2025 [facility]. COMMENT Normal . [facility] Comment on above: Order Comment: [id number] serum FZ bile acids Result Comment: Perf ormed at: - [facility] [address] [id number] [place]inkman: Huan Kuhn PhD, Phone: [phone] Performed By: #### L 500.4050, L3410.9992 #### [facility] Laboratory [address] [place], [place], [id number] Anion gap in Serum or Plasma Ordered By: Edel Diehl on 04-07-2025 Anion gap [Moles/Vol] 12 mmol/L 5-15 [facility] BUN/creatinine ratioOrdered By: Edel Diehl on 04-07-2025 Urea nitrogen/Creatinine [Mass ratio] 7.7 mg/mg Low 10-20 [facility] Bilirubin, totalOrdered By: Edel Diehl on 04-07-2025 Bilirubin [Mass/Vol] 0.29 mg/dL 0.00-1.30 [facility] Carbon dioxide, total [Moles /volume] in Central venous bloodOrdered By: Edel Diehl on 04-07-2025 CO2 [Moles/Vol] 19.0 mmol/L Low 21.0-32.0 [facility] Chloride assayOrdered By: Mickey Diehl on 04-07-2025 Chloride [Moles/Vol] 107 mmol/L 98-108 [facility] Comprehensive Metabolic Prof ilon 04-07-2025 Albumin [Mass/Vol] 3.6 g/dL Normal 3.5-5.0 [facility] Comment on above: Performed By: #### L 500.4050, L3410.9992 #### [facility] [address] [place], [place], [id number] Albumin/Globulin [Mass ratio] 1.1 {ratio} Normal 0.9-2.4 [facility] Comment on above: Performed By: #### L 500.4050, L3410.9992 #### [facility] [address] [place], [address] ALK PHOS 146 U/L High 35-104 [facility] Comment on above: Performed By: #### L 500.4050, L3410.9992 #### [facility] [address] [place], [address] ALT [Catalytic activity/Vol] 21 U/L Normal <=34 [facility] Comment on above: Performed By: #### L 500.4050, [id number] #### [facility] [address] [place], [address] AST [Catalytic activity/Vol] 19 U/L Normal <=31 [facility] Comment on above: Performed By: #### L 500.4050, L3410.9992 #### [facility] [address] [place], [address] Bilirubin [Mass/Vol] 0.29 mg/dL Normal 0.00-1.30 [facility] Comment on above: Performed By: #### L 500.4050, L3410.9992 #### [facility] [address] [place], [address] BUN/CRE 7.7 RATIO Low 10-20 [facility] Comment on above: Performed By: #### L 500.4050, L3410.9992 #### [facility] [address] [place], [address] Calcium [Mass/Vol] 9.2 mg/dL Normal 7.6-11.0 [facility] Comment on above: Performed By: #### L 500.4050, L3410.9992 #### [facility] [address] [place], [address] Chloride [Moles/Vol] 107 mmol/L Normal 98-108 [facility] Comment on above: Performed By: #### L 500.4050, L3410.9992 #### [facility] [address] [place], [address] CO2 [Moles/Vol] 19.0 mmol/L Low 21.0-32.0 [facility] Comment on above: Performed By: #### L 500.4050, L3410.9992 #### [facility] [address] [place], [address] Creatinine [Mass/Vol] 0.58 mg/dL Low 0.70-1.20 [facility] Comment on above: Performed By: #### L 500.4050, L3410.9992 #### [facility] [address] [place], [address] GAP 12 Normal 5-15 [facility] Comment on above: Performed By: #### L 500.4050, L3410.9992 #### [facility] Laboratory [address] [place], [address] GFR/1.73 sq M.predicted among non-blacks MDRD (S/P/Bld) [Vol rate/Area] 121 mL/min/{1.73_m2} Normal >60 [facility] Comment on above: Result Comment: mL/m in/1.73m2 CKD-EPI Creatinine Equation (2020) Performed By: #### L 500.4050, L3410.9992 #### [facility] [address] [place], [address] Globulin (S) [Mass/Vol] 3.4 g/dL Normal 2.2-4.2 [facility] Comment on above: Performed By: #### L 500.4050, L3410.9992 #### [facility] [address] [place], [address] Glucose [Mass/Vol] 85 mg/dL Normal 70-99 [facility] Comment on above: Performed By: #### L 500.4050, L3410.9992 #### [facility] [address] [place], [address] Potassium [Moles/Vol] 4.0 mmol/L Normal 3.3-5.1 [facility] Comment on above: Performed By: #### L 500.4050, L3410.9992 #### [facility] [address] [place], [address] Sodium [Moles/Vol] 137 mmol/L Normal 133-145 [facility] Comment on above: Performed By: #### L 500.4050, L3410.9992 #### [facility] [address] [place], [address] T PROT 6.9 g/dL Normal 5.9-8.4 [facility] Comment on above: Performed By: #### L 500.4050, L3410.9992 #### [facility] [address] [place], [address] Urea nitrogen [Mass/Vol] 4 mg/dL Normal 4-19 [facility] Comment on above: Performed By: #### L 500.4050, L3410.9992 #### [facility] [address] [place], [address] Glomerular filtration rate ( GFR) estimation/1.73 sq m using serum, plasma, or whole bOrdered By: Edel Diehl on 04-07-2025 GFR/1.73 sq M.predicted among non-blacks MDRD (S/P/Bld) [Vol rate/Area] 121 mL/min/{1.73_m2} >60 [facility] Comment on above: mL/min/1.73m2 CKD-EP I Creatinine Equation (2020) Laboratory - Chemistry and C hemistry - challengeOrdered By: Edel Diehl on 04-07-2025 AST [Catalytic activity/Vol] 19 U/L <32 [facility] Stitch Bonding Machine Drawer In Office Visit Reporton 04-07-2025 Stitch Bonding Machine Drawer In Office Visit Report [facility]'s [address], [address] [place] [address] OFFICE VISIT Date of Service: 04/07/25 MR#: [id number] Acct: [id number] Name: BARBY CABALLERO Rep #: [id number] : 1990 Provider: Dr. Edel Dover DO Age/Sex: 34/F Location[place] [facility] [place] Status: Signed Intake Vital Signs 01/29/25 10:30 03/26/25 14:17 04/07/25 10:00 Height 5 ft 2 in 5 ft 2 in 5 ft 2 in Weight: 268 lb 4 oz BMI 49.0 BP 119/80 Intake Visit Reasons: 34 wk ob *Doc Only* Supervisor Agency Appointments Required: No Is patient in pain?: No Allergies No Known Allergies Allergy (Verified 04/07/25 10:09) Medications ???Medication ???Instructions ???Recorded ???Confirmed ???Type escitalopram oxalate 10 mg tablet 10 mg PO DAILY #30 tabs 07/20/24 04/07/25 Rx (Lexapro) docosahexaenoic acid 200 mg 200 mg PO DAILY #90 caps 07/28/24 04/07/25 Rx capsule ( DHA) levothyroxine 25 mcg tablet 25 mcg PO QDAY #90 tabs 10/14/24 0 04/07/25 Rx (Synthroid) promethazine 25 mg tablet 25 mg PO Q6H PRN headache #30 tabs 12/17/24 04/07/25 Rx famotidine 40 mg tablet (Pepcid) 40 mg PO DAILY #30 tabs 01/11/25 0 04/07/25 Rx breast pump #1 ea 01/29/25 04/07/25 Rx Last Menstrual Period: 08/12/24 Zika: Zika [...] 1 current occupational status: unemployed current occupation: 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 Slow progression of labor w/ decels .. Failed vacuum delivery into emergency csec HPI 34 wk ob *Doc Only* Details: BARBY CABALLERO is a 34 year old who presents for routine OB visit. OB Visit ANTONIO Calculator Estimated Delivery Date Method Current WG Current Estimate 05/19/25 Conception 34w 0d Expected Delivery Route/Plan repeat c/s Specific Issue/Plans [...] 2d 264 lb (+0 oz) 120/76 -???-???-???-???-??? -? (more content not included)... Normal [facility] Potassium measurement (mass/ volume)Ordered By: Edel Diehl on 04-07-2025 Potassium (Unsp spec) [Mass/Vol] 4.0 mmol/L 3.3-5.1 [facility] Serum creatinine measurement (mass/volume)Ordered By: Edel Diehl on 04-07-2025 Creatinine [Mass/Vol] 0.58 mg/dL Low 0.70-1.20 [facility] Serum globulin measurementOr dered By: Edel Diehl on 04-07-2025 Globulin (S) [Mass/Vol] 3.4 g/dL 2.2-4.2 [facility] Serum glucose measurement (m ass/volume)Ordered By: Edel Diehl on 04-07-2025 Glucose [Mass/Vol] 85 mg/dL 70-99 [facility] Serum or plasma alanine jung otransferase (ALT) measurementOrdered By: Edel Diehl on 04-07-2025 ALT [Catalytic activity/Vol] 21 U/L <35 [facility] Serum or plasma albumin kenisha urement (mass/volume)Ordered By: Edel Diehl on 04-07-2025 Albumin [Mass/Vol] 3.6 g/dL 3.5-5.0 [facility] Serum or plasma albumin/glob ulin mass ratioOrdered By: Edel Diehl on 04-07-2025 Albumin/Globulin [Mass ratio] 1.1 {ratio} 0.9-2.4 [facility] Serum or plasma alkaline ct sphatase measurementOrdered By: Edel Diehl on 04-07-2025 ALP [Catalytic activity/Vol] 146 U/L High 35-104 [facility] Serum or plasma calcium kenisha urement (mass/volume)Ordered By: Edel Diehl on 04-07-2025 Calcium [Mass/Vol] 9.2 mg/dL 7.6-11.0 [facility] Serum or plasma urea nitroge n measurement (mass/volume)Ordered By: Edel Diehl on 04-07-2025 Urea nitrogen [Mass/Vol] 4 mg/dL 4-19 [facility] Sodium levelOrdered By: Kellen Diehl on 04-07-2025 Sodium [Moles/Vol] 137 mmol/L 133-145 [facility] Total proteinOrdered By: Rachel Diehl on 04-07-2025 Protein [Mass/Vol] 6.9 g/dL 5.9-8.4 [facility] Laboratory - Chemistry and C hemistry - challengeOrdered By: Edel Diehl on 03-26-2025 Glucose Ql (U) Negative [facility] Laboratory - UrinalysisOrder ed By: Edel Diehl on 03-26-2025 Protein Ql (U) Negative [facility] Stitch Bonding Machine Drawer In Office Visit Reporton 03-26-2025 Stitch Bonding Machine Drawer In Office Visit Report [facility] [address] [place] [address], [address] [place] [address] OFFICE VISIT Date of Service: 03/26/25 MR#: [id number] Acct: [id number] Name: BARBY CABALLERO Rep #: [id number] : 1990 Provider: Dr. Edel Dover, Age/Sex: 34/F [place] [facility] [place]: Signed Intake Vital Signs 10/09/24 14:36 03/10/25 14:28 03/26/25 14:15 03/26/25 14:17 Height 5 ft 2 in 5 ft 2 in 5 ft 2 in 5 ft 2 in Weight: 267 lb 4 oz BMI 48.9 BP 131/82 H Intake Visit Reasons: *rs 05/06 appt* 32 WK OB *DOC ONLY* Supervisor Agency Appointments Required: No Is patient in pain?: No Allergies No Known Allergies Allergy (Verified 03/26/25 14:13) Medications ???Medication ???Instructions ???Recorded ???Confirmed ???Type escitalopram oxalate 10 mg tablet 10 mg PO DAILY #30 tabs 07/20/24 03/26/25 Rx (Lexapro) docosahexaenoic acid 200 mg 200 mg PO DAILY #90 caps 07/28/24 03/26/25 Rx capsule ( DHA) levothyroxine 25 mcg tablet 25 mcg PO QDAY #90 tabs 10/14/24 0 03/26/25 Rx (Synthroid) promethazine 25 mg tablet 25 mg PO Q6H PRN headache #30 tabs 12/17/24 03/26/25 Rx famotidine 40 mg tablet (Pepcid) 40 mg PO DAILY #30 tabs 01/11/25 0 03/26/25 Rx breast pump #1 ea 01/29/25 03/26/25 Rx Last Menstrual Period: 08/12/24 Zika: Zika [...] 1 current occupational status: unemployed current occupation: 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 Slow progression of labor w/ decels .. Failed vacuum delivery into emergency csec HPI *rs 05/06 appt* 32 WK OB *DOC ONLY* Details: BARBY CABALLERO is a 34 year old who presents for routine OB visit. OB Visit ANTONIO Calculator Estimated Delivery Date Method Current WG Current Estimate 05/19/25 Conception 32w 2d Expected Delivery Route/Plan repeat c/s Specific [...] Effaced St Visit Note 10/09/24 -???-???-???-???-??? -???-???-???-???-??? - (more content not included)... Normal [facility] Genital Culture Comprehensiv tracy 03-12-2025 VAC Reason for Exam: contractions No Gardnerella, Neisseria or beta-hemolytic Streptococcus isolated. Presumptive C albicans Amount Growth 2+ Normal [facility] Comment on above: Performed By: #### M , M1.3200 #### [facility] [address] [place], [address] Gram Stainon 03-10-2025 Reason for Exam: contractions Gram Stain 3+ Gram positive rods 1+ White Blood Cells No Gram negative diplococci Score = 1 Interpretation: 0-3 Normal, 4-6 Intermediate, 7-10 Positive BV Normal [facility] Comment on above: Performed By: #### M 100, M100.3200 #### [facility] [address] [place], [address] Gram stainOrdered By: Ronda Diehl on 03-10-2025 Microscopic observation Gram stain Nom (Unsp spec) [facility] Laboratory - Chemistry and C hemistry - challengeOrdered By: Edel Diehl on 03-10-2025 Glucose Ql (U) Negative [facility] Laboratory - UrinalysisOrder ed By: Edel Diehl on 03-10-2025 Protein Ql (U) Negative [facility] Stitch Bonding Machine Drawer In Office Visit Reporton 03-10-2025 Stitch Bonding Machine Drawer In Office Visit Report [facility] [address], [address] [place] [address] OFFICE VISIT Date of Service: 03/10/25 MR#: [id number] Acct: [id number] Name: BARBY CABALLERO Rep #: [id number] : 1990 Provider: Dr. Edel Dover DO Age/Sex: 34/F [place] [facility] [place]: Signed Intake Vital Signs 10/09/24 14:36 02/26/25 08:45 03/10/25 14:24 03/10/25 14:28 Height 5 ft 2 in 5 ft 2 in 5 ft 2 in 5 ft 2 in Weight: 265 lb 8 oz BMI 48.5 BP 110/76 Intake Visit Reasons: 30 WK OB *DOC ONLY* Supervisor Agency Appointments Required: No Is patient in pain?: No Allergies No Known Allergies Allergy (Verified 03/10/25 14:24) Medications ???Medication ???Instructions ???Recorded ???Confirmed ???Type escitalopram oxalate 10 mg tablet 10 mg PO DAILY #30 tabs 07/20/24 03/10/25 Rx (Lexapro) docosahexaenoic acid 200 mg 200 mg PO DAILY #90 caps 07/28/24 03/10/25 Rx capsule ( DHA) levothyroxine 25 mcg tablet 25 mcg PO QDAY #90 tabs 10/14/24 0 03/10/25 Rx (Synthroid) promethazine 25 mg tablet 25 mg PO Q6H PRN headache #30 tabs 12/17/24 03/10/25 Rx famotidine 40 mg tablet (Pepcid) 40 mg PO DAILY #30 tabs 01/11/25 0 03/10/25 Rx breast pump #1 ea 01/29/25 03/10/25 Rx Last Menstrual Period: 08/12/24 Zika: Zika [...] 1 current occupational status: unemployed current occupation: 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 Date Name GA/Weeks Outcome Route Bth Weight Gen Labor Lgth Anesthesia Del Locatn Provider FOB 07/18/21 [place] 40 live - full term 7lbs 7oz Male gene ral [facility] [place] Delivery Date: 07/18/21 Last Updated by: Aida Shields RN Induce d/t failure to progress naturally .. Slow progression of labor w/ decels .. Failed vacuum delivery into emergency csec HPI 30 WK OB *DOC ONLY* Details: BARBY CABALLERO is a 34 year old who presents for routine OB visit. OB Visit ANTONIO Calculator Estimated Delivery Date Method Current WG Current Estimate 05/19/25 Conception 30w 0d Expected Delivery Route/Plan repeat c/s Specific Issue/Plans [...] -???-???-???-???-??? -???-???- 8w 2d 264 lb (+0 (more content not included)... Normal [facility] Gestational GTT 3HR 100gon 0 6- GEST GTT 100gm Normal [facility] Comment on above: Order Comment: Y Result Comment: FAST ING 85 Col: 03/05/25 0700 GLUCOSE TOLERANCE TEST FOR Reference Interval GESTATIONAL DIABETES Fasting <105 mg/dL 1 hour <190 mg/dl 2 hour <165 mg/dl 3 hour <145 mg/dl 1 HR GLU 150 Col: 03/05/25 0829 2 HR GLU 148 Col: 03/05/25 0926 3 HR GLU 60 Col: 03/05/25 1029 Performed By: #### L 500.4710 #### [facility] [address] [place], [address] Quantitative serum or plasma 3 hour gestational glucose tolerance panelOrdered By: Kiley Jain on 03-05-2025 Glucose tolerance 3 hours gestational panel See comment [facility] Comment on above: FASTING 85 Col: 03/24 0700GLUCOSE TOLERANCE TEST FOR Reference Interval GESTATIONAL DIABETES Fasting <105 mg/dL 1 hour <190 mg/dl 2 hour <165 mg/dl 3 hour <145 mg/dl 1 HR GLU 150 Col: 03/05/25 0829 2 HR GLU 148 Col: 03/05/25 0926 3 HR GLU 60 Col: 03/05/25 1029 Absolute lymphocyte countOrd ered By: Edel Diehl on 02-26-2025 Lymphocytes Auto (Unsp spec) [#/Vol] 2.26 10*3/uL 0.83-4.51 [facility] Absolute neutrophil countOrd ered By: Edel Diehl on 02-26-2025 Neutrophils (Bld) [#/Vol] 8.8 10*3/uL High 2.0-7.7 [facility] Automated lymphocyte count a s percentage of total leukocytesOrdered By: Edel Diehl on 02-26-2025 Lymphocytes/100 WBC Auto (Unsp spec) 19.1 % 19-41 [facility] Basophil percentageOrdered B y: Edel Diehl on 02-26-2025 Basophils/100 WBC (Bld) 0.3 % 0-1 [facility] CBC W/Diff, Automatedon 01-30 Absolute Lymph 2.26 X10 3/uL Normal 0.83-4.51 [facility] Comment on above: Performed By: #### M 100.2000, M100.3200 #### [facility] [address] [place], [address] Absolute Neut 8.8 X10 3/uL High 2.0-7.7 [facility] Comment on above: Performed By: #### M , 00.3200 #### [facility] [address] [place], [address] Basophils/100 WBC (Bld) 0.3 % Normal 0-1 [facility] Comment on above: Performed By: #### M , .3200 #### [facility] [address] [place], [address] Eosinophils/100 WBC (Bld) 1.0 % Normal 0-5 [facility] Comment on above: Performed By: #### M , .0 #### [facility] [address] [place], [address] Erythrocyte distribution width (RBC) [Ratio] 13.5 % Normal 11.6-14.6 [facility] Comment on above: Performed By: #### M , .3200 #### [facility] [address] [place], [address] Hematocrit (Bld) [Volume fraction] 37.5 % Normal 37-47 [facility] Comment on above: Performed By: #### M , .3200 #### [facility] [address] [place], [address] Hemoglobin (Bld) [Mass/Vol] 12.7 g/dL Normal 12.0-15.0 [facility] Comment on above: Performed By: #### M , .3200 #### [facility] [address] [place], [address] IG% 0.800 Normal 0.0-0.9 [facility] Comment on above: Result Comment: IG% - Immature Granulocytes (promyelocytes, myelocytes and metamyelocytes) > 1% indicates that a LEFT SHIFT is Present. Performed By: #### M , M100.3200 #### [facility] [address] [place], [address] Lymphocytes/100 WBC (Bld) 19.1 % Normal 19-41 [facility] Comment on above: Performed By: #### M , 00.3200 #### [facility] [address] [place], [address] MCH (RBC) [Entitic mass] 29.7 pg Normal 27.0-32.0 [facility] Comment on above: Performed By: #### M , .3200 #### [facility] [address] [place], [address] MCHC (RBC) [Mass/Vol] 33.9 g/dL Normal 32-36 [facility] Comment on above: Performed By: #### M , 00.3200 #### [facility] [address] [place], [address] MCV (RBC) [Entitic vol] 87.6 fL Normal 81-99 [facility] Comment on above: Performed By: #### M , M100.3200 #### [facility] [address] [place], [address] Monocytes/100 WBC (Bld) 4.0 % Normal 0-10 [facility] Comment on above: Performed By: #### M , M100.3200 #### [facility] [address] [place], [address] Neutrophils/100 WBC (Bld) 74.8 % High 47-70 [facility] Comment on above: Performed By: #### M , 00.3200 #### [facility] [address] [place], [address] Nucleated RBC (Bld) [#/Vol] 0 10*3/uL Normal 0-5 [facility] Comment on above: Performed By: #### M , .0 #### [facility] [address] [place], [address] Platelet mean volume (Bld) [Entitic vol] 9.5 fL Normal 6.2-12.0 [facility] Comment on above: Performed By: #### M , .0 #### [facility] [address] [place], [address] Platelets (Bld) [#/Vol] 300 10*3/uL Normal 150-450 [facility] Comment on above: Performed By: #### M , .0 #### [facility] [address] [place], [address] RBC (Bld) [#/Vol] 4.28 10*6/uL Normal 4.2-5.4 [facility] Comment on above: Performed By: #### M , .0 #### [facility] [address] [place], [address] RDW SD 42.8 fl Normal 35.1-43.9 [facility] Comment on above: Performed By: #### M , .3200 #### [facility] [address] [place], [address] WBC (Bld) [#/Vol] 11.8 10*3/uL High 4.4-11.0 [facility] Comment on above: Performed By: #### M , .3200 #### [facility] [address] [place], [address] Eosinophil percentageOrdered By: Edel Diehl on 02-26-2025 Eosinophils/100 WBC (Bld) 1.0 % 0-5 [facility] Erythrocyte distribution wid th ratioOrdered By: Edel Diehl on 02-26-2025 Erythrocyte distribution width (RBC) [Ratio] 13.5 % 11.6-14.6 [facility] Erythrocyte distribution wid th standard deviationOrdered By: Edel Diehl on 02-26-2025 Erythrocyte distribution width (RBC) [Ratio] 42.8 fl 35.1-43.9 [facility] Glucose Challenge Gest 1H 50 trini 02-26-2025 GLU GEST 50g 1H 172 mg/dL High 70-140 [facility] Comment on above: Performed By: #### M 100, M100.3200 #### [facility] [address] [place], [place], [address] Glucose measurement at 2 haven rs post-dose gestational glucose tolerance testOrdered By: Edel Diehl on 02-26-2025 Glucose [Mass/Vol] 172 mg/dL High 70-140 [facility] HIVon 02-26-2025 HIV Non-Reactive Normal Nonreactive [facility] Comment on above: Result Comment: Non- Reactive Reactive Repeatedly reactive samples must be confirmed according to CDC recommended confirmatory algorithms. The subresults for either HIVAG or AHIV can be used as an aid in the selection of the confirmation algorithm for reactive samples. Send out specimens with Reactive results to [facility] for confirmation. Order the HIV antibody detection and differentiation: #[id number] Performed By: #### M 100, M100.3200 #### [facility] [address] [place], [place], [address] Hematocrit Auto (Bld) [Volum e fraction]Ordered By: Edel Diehl on 02-26-2025 Hematocrit (Bld) [Volume fraction] 37.5 % 37-47 [facility] Hemoglobin measurementOrdere d By: Edel Diehl on 02-26-2025 Hemoglobin (Bld) [Mass/Vol] 12.7 g/dL 12.0-15.0 [facility] Immature granulocytes/100 WB C Auto (Bld)Ordered By: Edel Diehl on 02-26-2025 Immature granulocytes/100 WBC (Bld) 0.800 % 0.0-0.9 [facility] Comment on above: IG% - Immature Granu locytes (promyelocytes, myelocytes and metamyelocytes) > 1% indicates that a LEFT SHIFT is Present. Laboratory - Chemistry and C hemistry - challengeOrdered By: Apple Lao on 02-26-2025 Glucose Ql (U) Negative [facility] Laboratory - UrinalysisOrder ed By: Apple Lao on 02-26-2025 Protein Ql (U) Negative [facility] MCV (mean corpuscular volume ) determinationOrdered By: Edel Diehl on 02-26-2025 MCV (RBC) [Entitic vol] 87.6 fL 81-99 [facility] Mean corpuscular hemoglobin (MCH) determinationOrdered By: Edel Diehl on 02-26-2025 MCH (RBC) [Entitic mass] 29.7 pg 27.0-32.0 [facility] Mean corpuscular hemoglobin concentration (MCHC) determinationOrdered By: Edel Diehl on 02-26-2025 MCHC (RBC) [Mass/Vol] 33.9 g/dL 32-36 [facility] Mean platelet volume determi nationOrdered By: Edel Diehl on 02-26-2025 Platelet mean volume (Bld) [Entitic vol] 9.5 fL 6.2-12.0 [facility] Monocyte percentageOrdered B y: Edel Diehl on 02-26-2025 Monocytes/100 WBC (Bld) 4.0 % 0-10 [facility] Neutrophil percentageOrdered By: Edel Diehl on 02-26-2025 Neutrophils/100 WBC (Bld) 74.8 % High 47-70 [facility] No Panel InformationOrdered By: Edel Diehl on 02-26-2025 HIV (1&2) Antibody Non-Reactive Nonreactive [facility] Comment on above: Non-ReactiveReactive Repeatedly reactive samples must be confirmed according to CDC recommended confirmatory algorithms. The subresults for either HIVAG or AHIV can be used as an aid in the selection of the confirmation algorithm for reactive samples.Send out specimens with Reactive results to [facility] for confirmation.Order the HIV antibody detection and differentiation: #[id number] Nucleated red blood cell per centageOrdered By: Edel Diehl on 02-26-2025 Nucleated RBC/100 WBC (Bld) [Ratio] 0 % 0-5 [facility] Stitch Bonding Machine Drawer In Office Visit Reporton 02-26-2025 Stitch Bonding Machine Drawer In Office Visit Report [facility] [address], [address] [place] [address] OFFICE VISIT Date of Service: 02/26/25 MR#: [id number] Acct: [id number] Name: BARBY CABALLERO Rep #: [id number] : 1990 Provider: Dr. Apple martínez MD Age/Sex: 34/F [place] [facility] [place]: Signed Intake Vital Signs 10/09/24 14:36 01/01/25 10:10 01/29/25 10:30 02/26/25 08:45 Height 5 ft 2 in 5 ft 2 in 5 ft 2 in 5 ft 2 in Weight: 262 lb 2 oz 261 lb 4 oz 264 lb 2 oz BMI 47.9 47.7 48.3 BP 125/82 H 114/81 H 102/66 Intake Visit Reasons: 28 WK OB/GLUCOSE *DOC ONLY* Supervisor Agency Appointments Required: No Is patient in pain?: No [...] 1 current occupational status: unemployed current occupation: 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 Date Name GA/Weeks Outcome Route Bth Weight Infant Gen Labor Lgth Anesthesia Del Locatn Provider FOB 07/18/21 [place] 40 live - full term 7lbs 7oz Male gene ral [facility] [place] Delivery Date: 07/18/21 Last Updated [...] 10/09/24 -???-???-???- (more content not included)... Normal [facility] Platelet countOrdered By: Mickey Diehl on 02-26-2025 Platelets (Bld) [#/Vol] 300 10*3/uL 150-450 [facility] RBC Auto (Bld) [#/Vol]Ordere d By: Edel Diehl on 02-26-2025 RBC (Bld) [#/Vol] 4.28 10*6/uL 4.2-5.4 [facility] Syphilis Antibodieson 2024 Syphilis Abs Non-Reactive Normal Nonreactive [facility] Comment on above: Performed By: #### M 100.1999, M100.3200 #### [facility] [address] [place], [address] Type AND Screenon 02-26-2025 ABO and Rh group Nom (Bld) Blood group B Rh(D) negative Normal [facility] Comment on above: Order Comment: PN Performed By: #### M 100.1999, M100.3200 #### [facility] [address] [place], [address] White blood cell (WBC) count Ordered By: Edel Diehl on 02-26-2025 WBC (Bld) [#/Vol] 11.8 10*3/uL High 4.4-11.0 [facility] Progress Noteon 02-23-2025 Behavioral Intervention Specialist Authentication Interface Message Text MEDICAL DECISION MAKING: [...] concerns arise Patient was seen in [facility] cardiology clinic today at the request of [...] there are questions regarding these findings. Normal [facility] Stitch Bonding Machine Drawer In Office Visit Reporton 01-29-2025 Stitch Bonding Machine Drawer In Office Visit Report [facility]'s [address], [address] [place] [address] OFFICE VISIT Date of Service: 01/29/25 MR#: [id number] Acct: [id number] Name: BARBY CABALLERO Rep #: [id number] : 1990 Provider: Dr. Edel Dover DO Age/Sex: 34/F [place] [facility] [place]: Signed Intake Vital Signs 10/09/24 14:36 11/10/24 18:31 01/01/25 10:10 01/29/25 10:30 Height 5 ft 2 in 5 ft 2 in 5 ft 2 in 5 ft 2 in Weight: 261 lb 4 oz BMI 47.7 BP 114/81 H Intake Visit Reasons: 24 WK OB *DOC ONLY* Chief Complaint: 24 Week OB Supervisor Agency Appointments Required: No Is patient in pain?: No [...] 1 current occupational status: unemployed current occupation: 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 Date Name GA/Weeks Outcome Route Bth Weight Infant Gen Labor Lgth Anesthesia Del Locatn Provider FOB 07/18/21 Larry 40 live - full term 7lbs 7oz Male gene ral [facility] [place] Delivery Date: 07/18/21 Last Updated [...] -???-???-???-???-??? -???-???-???-?? (more content not included)... Normal [facility] Laboratory - Chemistry and C hemistry - challengeOrdered By: Apple Lao on 01-01-2025 Glucose Ql (U) Negative [facility] Laboratory - UrinalysisOrder ed By: Apple Lao on 01-01-2025 Protein Ql (U) Negative [facility] Stitch Bonding Machine Drawer In Office Visit Reporton 01-01-2025 Stitch Bonding Machine Drawer In Office Visit Report [facility], [address] [place] [address] OFFICE VISIT Date of Service: 01/01/25 MR#: [id number] Acct: [id number] Name: BARBY CABALLERO Rep #: [id number] : 1990 Provider: Dr. Apple martínez MD Age/Sex: 34/F [facility] Status: Signed Intake Vital Signs 10/09/24 14:36 12/03/24 13:34 01/01/25 10:10 Height 5 ft 2 in 5 ft 2 in 5 ft 2 in Weight: 262 lb 2 oz BMI 47.9 BP 125/82 H Intake Visit Reasons: 20 WK OB *DOC ONLY* Chief Complaint: 20 Week OB Supervisor Agency Appointments Required: No Is patient in pain?: No [...] 1 current occupational status: unemployed current occupation: 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 Date Name GA/Weeks Outcome Route Bth Weight Infant Gen Labor Lgth Anesthesia Del Locatn Provider FOB 07/18/21 Larry 40 live - full term 7lbs 7oz Male gene ral [facility] [place] Delivery Date: 07/18/21 Last Updated [...] -???-???-???-???-??? -?? (more content not included)... Normal [facility] Stitch Bonding Machine Drawer In Office Visit Reporton 12-03-2024 Stitch Bonding Machine Drawer In Office Visit Report [facility]'s [address], [address] [place] [address] OFFICE VISIT Date of Service: 12/03/24 MR#: [id number] Acct: [id number] Name: BARBY CABALLERO Rep #: [id number] : 1990 Provider: Dr. Edel Dover, Age/Sex: 34/F Location[place] [facility] [place] Status: Signed Intake Vital Signs 10/09/24 14:36 11/10/24 18:31 12/03/24 13:32 12/03/24 13:34 Height 5 ft 2 in 5 ft 2 in 5 ft 2 in 5 ft 2 in Weight: 262 lb 6 oz BMI 47.9 BP 120/82 H Intake Visit Reasons: 16 WK OB *DOC ONLY* Supervisor Agency Appointments Required: No Is patient in pain?: No [...] 1 current occupational status: unemployed current occupation: 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 Normal [facility] 12 Lead EKGon 11-10-2024 12 Lead EKG [facility] Cardiovascular Services [address] [place] [address] 12 Lead EKG 11/10/242034 MR#: [id number] Acct: [id number] Name: BARBY CABALLERO Rep #: [id number] : 1990 34 From: Ravi Fung MD [...] Otherwise normal ECG Confirmed by Ravi Fung ([id number]), editorial manager DAYNE HOGAN ([id number]) on 11/11/2024 11:26:16 AM Referred By: Confirmed By: Ravi Fung 11/11/24 1126 Date Ravi Fung MD CC: Dr. Steffen Eisenberg MD; Dr. Ld Fermin MD Signed Normal [facility] Absolute lymphocyte countOrd ered By: Ld Fermin on 11-10-2024 Lymphocytes Auto (Unsp spec) [#/Vol] 3.59 10*3/uL 0.83-4.51 [facility] Absolute neutrophil countOrd ered By: Ldondina Fremin on 11-10-2024 Neutrophils (Bld) [#/Vol] 9.3 10*3/uL High 2.0-7.7 [facility] Automated lymphocyte count a s percentage of total leukocytesOrdered By: Ld Fermin on 11-10-2024 Lymphocytes/100 WBC Auto (Unsp spec) 25.8 % 19-41 [facility] Basic Metabolic Profile (BMP )on 11-10-2024 BUN/CRE 8.8 RATIO Low 10-20 [facility] Comment on above: Performed By: #### L 100.0100, L500.2500 #### [facility] [address] [place], [address] CA,Total 9.9 mg/dL Normal 8.5-10.1 [facility] Comment on above: Performed By: #### L 100.0100, L500.2500 #### [facility] [address] [place], [address] Chloride [Moles/Vol] 108 mmol/L High 98-107 [facility] Comment on above: Performed By: #### L 100.0100, L500.2500 #### [facility] [address] [place], [address] CO2 [Moles/Vol] 24.0 mmol/L Normal 21.0-32.0 [facility] Comment on above: Performed By: #### L 100.0100, L500.2500 #### [facility] [address] [place], [address] Creatinine [Mass/Vol] 0.57 mg/dL Normal 0.55-1.02 [facility] Comment on above: Result Comment: The validity of the calculated GFR GFRAA in patients over 70 years has not been determined. Clinical correlation is essential. Performed By: #### L 100.0100, L500.2500 #### [facility] [address] [place], [address] ECRCL 167.72 ml/min Normal [facility] Comment on above: Performed By: #### L 100.0100, L500.2500 #### [facility] [address] [place], [address] EST GFR - AA 157 mL/min Normal >60 [facility] Comment on above: Result Comment: Afri can Jamaican GFR Calc Performed By: #### L 100.0100, L500.2500 #### [facility] [address] [place], [address] GAP 8 Normal 5-15 [facility] Comment on above: Performed By: #### L 100.0100, L500.2500 #### [facility] [address] [place], [address] GFR/1.73 sq M.predicted among non-blacks MDRD (S/P/Bld) [Vol rate/Area] 129 mL/min/{1.73_m2} Normal >60 [facility] Comment on above: Result Comment: Non- GFR Calc Performed By: #### L 100.0100, L500.2500 #### [facility] [address] [place], [address] Glucose [Mass/Vol] 86 mg/dL Normal 74-106 [facility] Comment on above: Performed By: #### L 100.0100, L500.2500 #### [facility] [address] [place], [address] Potassium [Moles/Vol] 3.4 mmol/L Low 3.5-5.1 [facility] Comment on above: Performed By: #### L 100.0100, L500.2500 #### [facility] [address] [place], [address] Sodium [Moles/Vol] 140 mmol/L Normal 136-145 [facility] Comment on above: Performed By: #### L 100.0100, L500.2500 #### [facility] [address] [place], [address] Urea nitrogen [Mass/Vol] 5 mg/dL Low 7-18 [facility] Comment on above: Performed By: #### L 100.0100, L500.2500 #### [facility] [address] [place], [address] Basophil percentageOrdered B y: Ld Fermin on 11-10-2024 Basophils/100 WBC (Bld) 0.5 % 0-1 [facility] Blood urea nitrogen (BUN)/cr eatinine ratioOrdered By: Ld Fermin on 11-10-2024 Urea nitrogen/Creatinine [Mass ratio] 8.8 mg/mg Low 10-20 [facility] CBC W/Diff, Automatedon -09 30-2024 Absolute Lymph 3.59 X10 3/uL Normal 0.83-4.51 [facility] Comment on above: Performed By: #### L 100.0100, L500.2500 #### [facility] [address] [place], [address] Absolute Neut 9.3 X10 3/uL High 2.0-7.7 [facility] Comment on above: Performed By: #### L 100.0100, L500.2500 #### [facility] [address] [place], [address] Basophils/100 WBC (Bld) 0.5 % Normal 0-1 [facility] Comment on above: Performed By: #### L 100.0100, L500.2500 #### [facility] [address] [place], [address] Eosinophils/100 WBC (Bld) 1.2 % Normal 0-5 [facility] Comment on above: Performed By: #### L 100.0100, L500.2500 #### [facility] [address] [place], [address] Erythrocyte distribution width (RBC) [Ratio] 12.8 % Normal 11.6-14.6 [facility] Comment on above: Performed By: #### L 100.0100, L500.2500 #### [facility] [address] [place], [address] Hematocrit (Bld) [Volume fraction] 43.6 % Normal 37-47 [facility] Comment on above: Performed By: #### L 100.0100, L500.2500 #### [facility] [address] [place], [address] Hemoglobin (Bld) [Mass/Vol] 14.8 g/dL Normal 12.0-15.0 [facility] Comment on above: Performed By: #### L 100.0100, L500.2500 #### [facility] [address] [place], [address] IG% 0.600 Normal 0.0-0.9 [facility] Comment on above: Result Comment: IG% - Immature Granulocytes (promyelocytes, myelocytes and metamyelocytes) > 1% indicates that a LEFT SHIFT is Present. Performed By: #### L 100.0100, L500.2500 #### [facility] [address] [place], [address] Lymphocytes/100 WBC (Bld) 25.8 % Normal 19-41 [facility] Comment on above: Performed By: #### L 100.0100, L500.2500 #### [facility] [address] [place], [address] MCH (RBC) [Entitic mass] 28.8 pg Normal 27.0-32.0 [facility] Comment on above: Performed By: #### L 100.0100, L500.2500 #### [facility] [address] [place], [address] MCHC (RBC) [Mass/Vol] 33.9 g/dL Normal 32-36 [facility] Comment on above: Performed By: #### L 100.0100, L500.2500 #### [facility] [address] [place], [address] MCV (RBC) [Entitic vol] 84.8 fL Normal 81-99 [facility] Comment on above: Performed By: #### L 100.0100, L500.2500 #### [facility] [address] [place], [address] Monocytes/100 WBC (Bld) 5.1 % Normal 0-10 [facility] Comment on above: Performed By: #### L 100.0100, L500.2500 #### [facility] [address] [place], [address] Neutrophils/100 WBC (Bld) 66.8 % Normal 47-70 [facility] Comment on above: Performed By: #### L 100.0100, L500.2500 #### [facility] [address] [place], [address] Nucleated RBC (Bld) [#/Vol] 0 10*3/uL Normal 0-5 [facility] Comment on above: Performed By: #### L 100.0100, L500.2500 #### [facility] [address] [place], [address] Platelet mean volume (Bld) [Entitic vol] 9.3 fL Normal 6.2-12.0 [facility] Comment on above: Performed By: #### L 100.0100, L500.2500 #### [facility] [address] [place], [address] Platelets (Bld) [#/Vol] 373 10*3/uL Normal 150-450 [facility] Comment on above: Performed By: #### L 100.0100, L500.2500 #### [facility] [address] [place], [address] RBC (Bld) [#/Vol] 5.14 10*6/uL Normal 4.2-5.4 [facility] Comment on above: Performed By: #### L 100.0100, L500.2500 #### [facility] [address] [place], [address] RDW SD 39.5 fl Normal 35.1-43.9 [facility] Comment on above: Performed By: #### L 100.0100, L500.2500 #### [facility] [address] [place], [address] WBC (Bld) [#/Vol] 13.9 10*3/uL High 4.4-11.0 [facility] Comment on above: Performed By: #### L 100.0100, L500.2500 #### [facility] [address] [place], [address] Carbon dioxide measurementOr dered By: Ld Fermin on 11-10-2024 CO2 [Moles/Vol] 24.0 mmol/L 21.0-32.0 [facility] Chloride measurementOrdered By: Ld Fermin on 11-10-2024 Chloride [Moles/Vol] 108 mmol/L High 98-107 [facility] D-Dimer Quantitative (DVT/PE )on 11-10-2024 D-DIMER QUANT < 0.27 Low 0.27-0.49 [facility] Comment on above: Result Comment: NORM AL D-Dimer level (<0.50) indicates no DVT or PE. Performed By: #### L 300.8000 #### [facility] [address] [place], [address] Emergency Department Summary on 11-10-2024 Emergency Department Summary [facility] Medical Records Department [address] [place] [address] Emergency Department Summary 11/10/24 MR#: [id number] Acct: [id number] Name: BARBY CABALLERO Rep #: [id number] : 1990 34 From: Ld Fermin MD PCP: Dr. Steffen Eisenberg MD Status:REG ER Location: ED ADDENDUM by Dr. Ld Fermin MD on 11/10/24 at 2234 I omitted to document that patient had [...] revealed a sinus tachycardia rate of 109. CT interval is 118 ms. Cures duration 72 ms. QT duration 304 ms. [place] is normal other than the tachycardia EKG [...] 1 current occupational status: unemployed current occupation: 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 Normal [facility] Eosinophil percentageOrdered By: Ldondina Fermin on 11-10-2024 Eosinophils/100 WBC (Bld) 1.2 % 0-5 [facility] Erythrocyte distribution wid th ratioOrdered By: Ldondina Fermin on 11-10-2024 Erythrocyte distribution width (RBC) [Ratio] 12.8 % 11.6-14.6 [facility] Erythrocyte distribution wid th standard deviationOrdered By: Ldondina Fermin on 11-10-2024 Erythrocyte distribution width (RBC) [Ratio] 39.5 fl 35.1-43.9 [facility] Glomerular filtration rate ( GFR) estimationOrdered By: Ldondina Fermin on 11-10-2024 GFR/1.73 sq M.predicted among non-blacks MDRD (S/P/Bld) [Vol rate/Area] 129 mL/min/{1.73_m2} >60 [facility] Comment on above: Non- GFR Calc Glucose measurementOrdered B y: Ld Fermin on 11-10-2024 Glucose [Mass/Vol] 86 mg/dL 74-106 [facility] Hematocrit Auto (Bld) [Volum e fraction]Ordered By: Ldondina Fermin on 11-10-2024 Hematocrit (Bld) [Volume fraction] 43.6 % 37-47 [facility] Hemoglobin measurementOrdere d By: Ld Fermin on 11-10-2024 Hemoglobin (Bld) [Mass/Vol] 14.8 g/dL 12.0-15.0 [facility] Immature granulocytes/100 WB C Auto (Bld)Ordered By: Ld Fermin on 11-10-2024 Immature granulocytes/100 WBC (Bld) 0.600 % 0.0-0.9 [facility] Comment on above: IG% - Immature Granu locytes (promyelocytes, myelocytes and metamyelocytes) > 1% indicates that a LEFT SHIFT is Present. MCV (mean corpuscular volume ) determinationOrdered By: Ld Fermin on 11-10-2024 MCV (RBC) [Entitic vol] 84.8 fL 81-99 [facility] Mean corpuscular hemoglobin (MCH) determinationOrdered By: Ldondina Fermin on 11-10-2024 MCH (RBC) [Entitic mass] 28.8 pg 27.0-32.0 [facility] Mean corpuscular hemoglobin concentration (MCHC) determinationOrdered By: Ldondina Fermin on 11-10-2024 MCHC (RBC) [Mass/Vol] 33.9 g/dL 32-36 [facility] Mean platelet volume determi nationOrdered By: Ld Fermin on 11-10-2024 Platelet mean volume (Bld) [Entitic vol] 9.3 fL 6.2-12.0 [facility] Monocyte percentageOrdered B y: Ldondina Fermin on 11-10-2024 Monocytes/100 WBC (Bld) 5.1 % 0-10 [facility] Neutrophil percentageOrdered By: Ldondina Fermin on 11-10-2024 Neutrophils/100 WBC (Bld) 66.8 % 47-70 [facility] Nucleated red blood cell per centageOrdered By: Ldondina Fermin on 11-10-2024 Nucleated RBC/100 WBC (Bld) [Ratio] 0 % 0-5 [facility] Platelet countOrdered By: [facility] Fermin on 11-10-2024 Platelets (Bld) [#/Vol] 373 10*3/uL 150-450 [facility] Potassium measurementOrdered By: Ldondina Fermin on 11-10-2024 Potassium [Moles/Vol] 3.4 mmol/L Low 3.5-5.1 [facility] RBC Auto (Bld) [#/Vol]Ordere d By: Ld Fermin on 11-10-2024 RBC (Bld) [#/Vol] 5.14 10*6/uL 4.2-5.4 [facility] Serum anion gap measurementO rdered By: Ld Fermin on 11-10-2024 Anion gap [Moles/Vol] 8 mmol/L 5-15 [facility] Serum or plasma calcium kenisha urement (mass/volume)Ordered By: Ldondina Fermin on 11-10-2024 Calcium [Mass/Vol] 9.9 mg/dL 8.5-10.1 [facility] Serum or plasma creatinine m easurement (mass/volume)Ordered By: Ld Fermin on 11-10-2024 Creatinine [Mass/Vol] 0.57 mg/dL 0.55-1.02 [facility] Comment on above: The validity of the calculated GFR & GFRAA in patients over 70 years has not been determined. Clinical correlation is essential. Serum or plasma urea nitroge n measurement (mass/volume)[facility] Urea nitrogen [Mass/Vol] 5 mg/dL Low 7-18 [facility] Sodium levelOrdered By: Ldondina Fermin on 11-10-2024 Sodium [Moles/Vol] 140 mmol/L 136-145 [facility] White blood cell (WBC) count Or[facility]: [facility] 11-10-[facility]24 WBC (Bld) [#/Vol] 13.9 10*3/uL High 4.4-11.0 [facility] - Chemistry and C hemistry - challengeOrdered By: Edel Diehl on 11-05-2024 Glucose Ql (U) Negative [facility] - UrinalysisOrder ed By: Edel Diehl on 11-05-2024 Protein Ql (U) Negative [facility] Stitch Bonding Machine Drawer In Office Visit Reporton 11-05-2024 Stitch Bonding Machine Drawer In Office Visit Report [facility] [address], [address] [place] [address] OFFICE VISIT Date of Service: 11/05/24 MR#: [id number] Acct: [id number] Name: BARBY CABALLERO Rep #: [id number] : 1990 Provider: Dr. Edel Dover, Age/Sex: 34/F [place] [facility] [place] Status: Signed Intake Vital Signs 07/20/24 14:24 10/09/24 14:36 11/05/24 14:27 11/05/24 14:28 Height 5 ft 2 in 5 ft 2 in 5 ft 2 in 5 ft 2 in Weight: 260 lb BMI 47.5 BP 125/89 H Intake Visit Reasons: 12wk OB *DOC ONLY* Supervisor Agency Appointments Required: No Is patient in pain?: No [...] 1 current occupational status: unemployed current occupation: 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 Date Name GA/Weeks Outcome Route Bth Weight Gen Labor Lgth Anesthesia Del Locatn Provider FOB 07/18/21 Larry 40 live - full term 7lbs 7oz Male gene ral [facility] [place] Delivery Date: 07/18/21 Last Updated [...] KW-CRL cons (more content not included)... Normal [facility] HIV - WCHon 10-13-2024 HIV Non-Reactive Normal Nonreactive [facility] Comment on above: Order Comment: Reaso n for Exam: Performed By: #### L 500.4050, L3410.9992 #### [facility] [address] [place], [place], [address] L3410.9999on 10-13-2024 [facility] Normal . [facility] Comment on above: Order Comment: [id number] 4TSH RECEPTOR AB SERUM RF Result Comment: Test Ordered: [id number] Thyrotropin Receptor Ab, Serum Thyrotropin Receptor Ab, Serum <1.10 IU/L Reference Range: 0.00-1.75 Performed at: [address] [id number] Rinkman: Sue Martinez MD, Phone: [phone] Performed at: [address] [id number] Rinkman: Huan Kuhn PhD, Phone: [phone] Performed By: #### L 500.4050, L3410.9992 #### [facility] [address] [place], [address] Chlamydia/GC CONCHITA aptimaon CHLAMY,NUC ACID Negative Normal Negative [facility] Comment on above: Performed By: #### M 100.1999, M100.3200 #### [facility] [address] [place], [address] GC BY NUC ACID Negative Normal Negative [facility] Comment on above: Result Comment: Perf ormed at: =G - [facility] [address] [id number] Rinkman: Ary Grider MD, Phone: [phone] Performed By: #### M 100.1999, M100.3200 #### [facility] [place], [address] Hepatitis B Surface Antigeno n 10-12-2024 HEP B Surf Ag Non-Reactive Normal Nonreactive [facility] Comment on above: Order Comment: Reaso n for Exam: Performed By: #### L 300.8000 #### [facility] [address] [place], [address] Hepatitis C Antibodyon 10-12 Hepatitis C AB Non-Reactive Normal Nonreactive [facility] Comment on above: Order Comment: Reaso n for Exam: Result Comment: Non Reactive: < 0.8 Equivocal: >/= 0.8 to < 1.0 Reactive: >/= 1.0 The CDC requires that a reactive/equivocal HCV antibody result be sent out for confirmation. HCV Quant by PCR testing. Performed By: #### L 300.8000 #### [facility] [address] [place], [address] L509.8000on 10-12-2024 Syphilis Abs Non-Reactive Normal [facility] Comment on above: Order Comment: Reaso n for Exam: Performed By: #### L 300.8000 #### [facility] [address] [place], [address] Rubella IgGon 10-12-2024 Rubella IgG Reactive Normal Nonreactive [facility] Comment on above: Order Comment: Reaso n for Exam: Result Comment: Anti body Results Interpretation of Immune Status Non Reactive Presumed Non-Immune Equivocal Equivocal Reactive Presumed Immune Performed By: #### L 300.8000 #### [facility] [address] [place], [address] Urine Cultureon 10-12-2024 [facility] Mixed Gram Positive Organisms Larue Count 25,000-50,000 MIXC Mixed contaminants. Submit a new specimen if indicated. Normal [facility] Comment on above: Performed By: #### M 100.2000, M100.3200 #### [facility] [address] [place], [address] CBC W/Diff, Automatedon - 0-2024 Absolute Lymph 2.85 X10 3/uL Normal 0.83-4.51 [facility] Comment on above: Performed By: #### L 300.8000 #### [facility] [address] [place], [address] Absolute Neut 10.8 X10 3/uL High 2.0-7.7 [facility] Comment on above: Performed By: #### L 300.8000 #### [facility] [address] [place], [address] Basophils/100 WBC (Bld) 0.5 % Normal 0-1 [facility] Comment on above: Performed By: #### L 300.8000 #### [facility] [address] [place], [address] Eosinophils/100 WBC (Bld) 1.4 % Normal 0-5 [facility] Comment on above: Performed By: #### L 300.8000 #### [facility] [address] [place], [address] Erythrocyte distribution width (RBC) [Ratio] 12.8 % Normal 11.6-14.6 [facility] Comment on above: Performed By: #### L 300.8000 #### [facility] [address] [place], [address] Hematocrit (Bld) [Volume fraction] 41.2 % Normal 37-47 [facility] Comment on above: Performed By: #### L 300.8000 #### [facility] [address] [place], [address] Hemoglobin (Bld) [Mass/Vol] 14.1 g/dL Normal 12.0-15.0 [facility] Comment on above: Performed By: #### L 300.8000 #### [facility] [address] [place], [address] IG% 0.500 Normal 0.0-0.9 [facility] Comment on above: Result Comment: IG% - Immature Granulocytes (promyelocytes, myelocytes and metamyelocytes) > 1% indicates that a LEFT SHIFT is Present. Performed By: #### L 300.8000 #### [facility] [facility] [address] [facility] [place], [address] Lymphocytes/100 WBC (Bld) 19.2 % Normal 19-41 [facility] Comment on above: Performed By: #### L 300.8000 #### [facility] [address] [place], [address] MCH (RBC) [Entitic mass] 28.8 pg Normal 27.0-32.0 [facility] Comment on above: Performed By: #### L 300.8000 #### [facility] [address] [place], [address] MCHC (RBC) [Mass/Vol] 34.2 g/dL Normal 32-36 [facility] Comment on above: Performed By: #### L 300.8000 #### [facility] [address] [place], [address] MCV (RBC) [Entitic vol] 84.1 fL Normal 81-99 [facility] Comment on above: Performed By: #### L 300.8000 #### [facility] [address] [place], [address] Monocytes/100 WBC (Bld) 5.2 % Normal 0-10 [facility] Comment on above: Performed By: #### L 300.8000 #### [facility] [address] [place], [address] Neutrophils/100 WBC (Bld) 73.2 % High 47-70 [facility] Comment on above: Performed By: #### L 300.8000 #### [facility] Laboratory [facility] [place], [address] Nucleated RBC (Bld) [#/Vol] 0 10*3/uL Normal 0-5 [facility] Comment on above: Performed By: #### L 300.8000 #### [facility] Laboratory [facility] [place], [address] Platelet mean volume (Bld) [Entitic vol] 9.1 fL Normal 6.2-12.0 [facility] Comment on above: Performed By: #### L 300.8000 #### [facility] Laboratory [facility] [place], [address] Platelets (Bld) [#/Vol] 417 10*3/uL Normal 150-450 [facility] Comment on above: Performed By: #### L 300.8000 #### [facility] Laboratory [facility] [place], [address] RBC (Bld) [#/Vol] 4.90 10*6/uL Normal 4.2-5.4 [facility] Comment on above: Performed By: #### L 300.8000 #### [facility] [address] [place], [place], [address] RDW SD 39.1 fl Normal 35.1-43.9 [facility] Comment on above: Performed By: #### L 300.8000 #### [facility] [address] [place], [id number] (595) WBC (Bld) [#/Vol] 14.8 10*3/uL High 4.4-11.0 [facility] Comment on above: Performed By: #### L 300.8000 #### [facility] [address] [place], [address] Hemoglobin A1con 10-09-2024 HbA1c (Bld) [Mass fraction] 5.2 % Normal 3.8-5.6 [facility] Comment on above: Result Comment: Norm al < 5.7 % Prediabetic 5.7 - 6.4 % Diabetic >or= 6.5 % Please note range changes. Performed By: #### L 300.8000 #### [facility] [address] [place], [place], [address] Stitch Bonding Machine Drawer In Office Visit Reporton 10-09-2024 Stitch Bonding Machine Drawer In Office Visit Report [facility] [address], [address] [place] [address] OFFICE VISIT Date of Service: 10/09/24 MR#: [id number] Acct: [id number] Name: BARBY CABALLERO Rep #: [id number] : 1990 Provider: NU Red ams Age/Sex: 33/F [place] [facility] [place] Status: Signed Intake Vital Signs 07/20/24 14:24 10/09/24 14:36 10/09/24 14:36 Height 5 ft 2 in 5 ft 2 in 5 ft 2 in Weight: 264 lb BMI 48.2 BP 120/76 Intake Visit Reasons: LMP 11 LMP 05/19 IVF Supervisor Agency Appointments Required: No Is patient in pain?: No [...] 1 current occupational status: unemployed current occupation: 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 Date Name GA/Weeks Outcome Route Bth Weight Infant Gen Labor Lgth Anesthesia Del Locatn Provider FOB 07/18/21 [place] 40 live - full term 7lbs 7oz Male gene ral [facility] [place] Delivery Date: 07/18/21 Last Updated by: Aida Shields RN Induce d/t failure to progress naturally .. Slow progression of labor w/ decels .. Failed vacuum delivery into emergency csec HPI LMP 11 LMP 05/19 IVF Details: BARBY CABALLERO is [...] 264 lb (more content not included)... Normal [facility] T4 Free Directon 10-09-2024 T4 FREE DIRECT 1.29 ng/dL Normal 0.76-1.46 [facility] Comment on above: Performed By: #### L 300.8000 #### [facility] [address] [place], [address] Thyroid Stim Hormone (TSH)on 10-09-2024 TSH 1.180 uIU/mL Normal 0.358-3.740 [facility] Comment on above: Performed By: #### L 300.8000 #### [facility] [address] [place], [address] Type AND Screenon 10-09-2024 Ab SCREEN GEL Negative Normal [facility] Comment on above: Order Comment: PN Performed By: #### L 300.8000 #### [facility] [address] [place], [address] Urine Drug Screen (VISTA)on 10-09-2024 AMPHETAMINES Negative Normal <1000 ng/mL [facility] Comment on above: Order Comment: UNK Performed By: #### M , M100.3200 #### [facility] [address] [place], [address] BARBITIURATES Negative Normal < 200 ng/mL [facility] Comment on above: Order Comment: UNK Performed By: #### M , M100.3200 #### [facility] [address] [place], [address] BENZODIAZIPINE Negative Normal < 200 ng/mL [facility] Comment on above: Order Comment: UNK Performed By: #### M 100, M100.3200 #### [facility] [address] [place], [address] COCAINE Negative Normal < 300 ng/mL [facility] Comment on above: Order Comment: UNK Performed By: #### M , M100.3200 #### [facility] [address] [place], [address] ECSTACY Negative Normal < 500 ng/mL [facility] Comment on above: Order Comment: UNK Performed By: #### M , M100.3200 #### [facility] [address] [place], [address] METHADONE Negative Normal < 300 ng/mL [facility] Comment on above: Order Comment: UNK Performed By: #### M , M100.3200 #### [facility] [address] [place], [address] OPIATES Negative Normal < 300 ng/mL [facility] Comment on above: Order Comment: UNK Performed By: #### M , M100.3200 #### [facility] [address] [place], [address] PCP Negative Normal < 25 ng/mL [facility] Comment on above: Order Comment: UNK Performed By: #### M , M100.3200 #### [facility] [address] [place], [address] THC Negative Normal < 50 ng/mL [facility] Comment on above: Order Comment: UNK Performed By: #### M , M100.3200 #### [facility] [address] [place], [address] VISTA UDS PH 6 Normal [facility] Comment on above: Order Comment: UNK Performed By: #### M , M100.3200 #### [facility] [address] [place], [address] Choriogonadotropin.beta subu niton 10-02-2024 [place] [address] m[IU]/mL High <5 U [facility] Comment on above: Order Comment: Total HCG measurement is performed using the [employer] Access Immunoassay which detects intact HCG and free beta HCG subunit. This test is not indicated for use as a tumor marker. HCG testing is performed using a different test methodology at [facility] other [facility]. Direct result comparison should only be made [...] By: #### 3 4549-6 #### DWAYNE Nair ([id number]) [facility] ([facility]) [id number] [place] [address] Estradiolon 10-02-2024 E2 [Mass/Vol] 506 pg/mL Normal [facility] Comment on above: Order Comment: REF V ALUESFOLLICULAR PHASE 20-144MID CYCLE 64-357LUTEAL PHASE 56-214POSTMENOPAUSE < 32PREPUBERTY < 20FEMALE 10-18Y 8-110MALE 10-18Y < 20ADULT MALE < 40 Performed By: #### 3 4549-6 #### DWAYNE Nair ([id number]) [facility] ([facility]) [address] [place] [address] Progesteroneon 10-02-2024 Progesterone [Mass/Vol] 26.5 ng/mL Normal [facility] Comment on above: Result Comment: Ref Values Male <0.3- 1.2 Follicular Phase <0.3- 1.4 Luteal Phase 3.3-25.6 Mid-Luteal Phase 4.4-28.0 Postmenopausal <0.3- 0.7 Females: 1st Trimester 11.2- 90.0 2nd Trimester 25.6- 89.4 3RD Trimester 48.4-422.5 Patients receiving DHEA-S supplements may show false elevation of progesterone for results near 1.0 ng/mL. Contact laboratory at [phone] if alternative testing is needed. Performed By: #### 3 4549-6 #### DWAYNE Nair ([id number]) [facility] ([facility]) [id number] [place] [address] US PELVIS OB TRANSABDOMINAL W TRANSVAGINAL UP TO 1ST TRIMESTERon 10-02-2024 US PELVIS OB TRANSABDOMINAL W TRANSVAGINAL UP TO 1ST TRIMESTER Interpreted By: Dyllan De Jesus, STUDY: US PELVIS OB TRANSABDOMINAL W TRANSVAGINAL UP TO 1ST TRIMESTER; 10/02/2024 9:55 am INDICATION: Signs/Symptoms:PREGN RADHA. COMPARISON: None. ACCESSION NUMBER(S): [id number] ORDERING CLINICIAN: LEVON BRAXTON TECHNIQUE: Multiple grayscale [...] De Jesus 10/02/2024 11:52 AM Dictation workstation: [id number] [facility] US Pelvis transvaginalon 1. Single live intrauterine . 2. Estimated gestational age: 6 weeks 2 days +/-3 days. MACRO: None Signed by: Dyllan De Jesus 10/02/2024 11:52 AM Dictation workstation: [id number] MMODAL Interpreted By: Dyllan De Jesus, STUDY: US PELVIS OB TRANSABDOMINAL W TRANSVAGINAL UP TO 1ST TRIMESTER; 10/02/2024 9:55 am INDICATION: Signs/Symptoms:PREGN RADHA. COMPARISON: None. ACCESSION NUMBER(S): [id number] ORDERING CLINICIAN: LEVON BRAXTON TECHNIQUE: Multiple grayscale [...] INDICATION: Signs/Symptoms:PREGN RADHA. COMPARISON: None. ACCESSION NUMBER(S): [id number] ORDERING CLINICIAN: LEVON BRAXTON TECHNIQUE: Multiple grayscale [...] De Jesus 10/02/2024 11:52 AM Dictation workstation: [id number] [facility] Work Phone: Radiology Study observation (narrative) [facility] Work Phone: US Pelvis transvaginalOrdere d By: Dyllan De Jesus on 10-02-2024 [facility] Work Phone: Choriogonadotropin.beta subu niton 09-25-2024 [place] [address] m[IU]/mL High <5 U [facility] Comment on above: Order Comment: Needs to go with a stat technical sme Total HCG measurement is performed using the [employer] Access Immunoassay which detects intact HCG and free beta HCG subunit. This test is not indicated for use as a tumor marker. HCG testing is performed using a different test methodology at [facility] than other [facility]. Direct result comparison should only be made [...] By: #### 3 4549-6 #### DWAYNE Nair ([id number]) [facility] ([facility]) [address] [place] [address] Estradiolon 09-25-2024 E2 [Mass/Vol] 423 pg/mL Normal [facility] Comment on above: Order Comment: Needs to go with a stat courierREF VALUESFOLLICULAR PHASE 20-144MID CYCLE 64-357LUTEAL PHASE 56-214POSTMENOPAUSE < 32PREPUBERTY < 20FEMALE 10-18Y 8-110MALE 10-18Y < 20ADULT MALE < 40 Performed By: #### 3 4549-6 #### DWAYNE Nair ([id number]) [facility] ([facility]) [address] [place] [address] Progesteroneon 09-25-2024 Progesterone [Mass/Vol] 37.3 ng/mL Normal U [facility] Comment on above: Order Comment: Needs to go with a stat technical sme Result Comment: Ref Values Male <0.3- 1.2 Follicular Phase <0.3- 1.4 Luteal Phase 3.3-25.6 Mid-Luteal Phase 4.4-28.0 Postmenopausal <0.3- 0.7 Females: 1st Trimester 11.2- 90.0 2nd Trimester 25.6- 89.4 3RD Trimester 48.4-422.5 Patients receiving DHEA-S supplements may show false elevation of progesterone for results near 1.0 ng/mL. Contact laboratory at [phone] if alternative testing is needed. Performed By: #### 3 4549-6 #### DWAYNE Nair ([id number]) [facility] ([facility]) [address] [place] [address] US PELVIS OB TRANSABDOMINAL W TRANSVAGINAL UP TO 1ST TRIMESTERon 09-25-2024 US PELVIS OB TRANSABDOMINAL W TRANSVAGINAL UP TO 1ST TRIMESTER Interpreted By: Dyllan De Jesus, STUDY: US PELVIS OB TRANSABDOMINAL W TRANSVAGINAL UP TO 1ST TRIMESTER; 09/25/2024 9:44 am INDICATION: Signs/Symptoms:POSIT MANUEL TEST. COMPARISON: None. ACCESSION NUMBER(S): [id number] ORDERING CLINICIAN: LEVON BRAXTON TECHNIQUE: Multiple grayscale [...] De Jesus 09/25/2024 10:40 AM Dictation workstation: [id number] [facility] US Pelvis transvaginalon 1. Single intrauterine [...] De Jesus 09/25/2024 10:40 AM Dictation workstation: [id number] [facility] MMODAL Interpreted By: Dyllan De Jesus, STUDY: US PELVIS OB TRANSABDOMINAL W TRANSVAGINAL UP TO 1ST TRIMESTER; 09/25/2024 9:44 am INDICATION: Signs/Symptoms:POSIT MANUEL TEST. COMPARISON: None. ACCESSION NUMBER(S): [id number] ORDERING CLINICIAN: LEVON BRAXTON TECHNIQUE: Multiple grayscale [...] 1.9 x 2.5 cm FREE FLUID: None. [facility] MMODAL Dyllan De Jesus MD - 09/25/2024 Interpreted By: Dyllan De Jesus, STUDY: US PELVIS OB TRANSABDOMINAL W TRANSVAGINAL UP TO 1ST TRIMESTER; 09/25/2024 9:44 am INDICATION: Signs/Symptoms:POSIT MANUEL TEST. COMPARISON: None. ACCESSION NUMBER(S): [id number] ORDERING CLINICIAN: LEVON BRAXTON TECHNIQUE: Multiple grayscale [...] De Jesus 09/25/2024 10:40 AM Dictation workstation: [id number] [facility] Work Phone: Radiology Study observation (narrative) [facility] Work Phone: US Pelvis transvaginalOrdere d By: Dyllan De Jesus on 09-25-2024 [facility] Work Phone: Choriogonadotropin.beta subu niton 09-15-2024 HCG.beta subunit Qn 889 m[IU]/mL High <5 [facility] Comment on above: Order Comment: Stat, send with technical sme Total HCG measurement is performed using the [employer] Access Immunoassay which detects intact HCG and free beta HCG subunit. This test is not indicated for use as a tumor marker. HCG testing is performed using a different test methodology at [facility] other [facility]. Direct result comparison should only be made [...] By: #### 3 4549-6 #### DWAYNE Nair ([id number]) [facility] ([facility]) [address] [place] [address] Estradiolon 09-15-2024 E2 [Mass/Vol] 492 pg/mL Normal [facility] Comment on above: Order Comment: Stat, send with courierREF VALUESFOLLICULAR PHASE 20-144MID CYCLE 64-357LUTEAL PHASE 56-214POSTMENOPAUSE < 32PREPUBERTY < 20FEMALE 10-18Y 8-110MALE 10-18Y < 20ADULT MALE < 40 Performed By: #### 3 4549-6 #### DWAYNE Nair ([id number]) [facility] ([facility]) [address] [place] [address] Progesteroneon 09-15-2024 Progesterone [Mass/Vol] 31.2 ng/mL Normal [facility] Comment on above: Order Comment: Stat, send with technical sme Result Comment: Ref Values Male <0.3- 1.2 Follicular Phase <0.3- 1.4 Luteal Phase 3.3-25.6 Mid-Luteal Phase 4.4-28.0 Postmenopausal <0.3- 0.7 Females: 1st Trimester 11.2- 90.0 2nd Trimester 25.6- 89.4 3RD Trimester 48.4-422.5 Patients receiving DHEA-S supplements may show false elevation of progesterone for results near 1.0 ng/mL. Contact laboratory at [phone] if alternative testing is needed. Performed By: #### 3 4549-6 #### DWAYNE Nair ([id number]) [facility] ([facility]) [address] [place] [address] Choriogonadotropin.beta subu niton 09-11-2024 HCG.beta subunit Qn 195 m[IU]/mL High <5 [facility] Comment on above: Order Comment: REF V [...] By: #### 2 243-4 #### DWAYNE Nair ([id number]) [facility] ([facility]) [id number] [place] [address] Estradiolon 09-11-2024 E2 [Mass/Vol] 347 pg/mL Normal [facility] Comment on above: Order Comment: REF V ALUES FOLLICULAR PHASE 20-144 MID CYCLE 64-357 LUTEAL PHASE 56-214 POSTMENOPAUSE < 32 PREPUBERTY < 20 FEMALE 10-18Y 8-110 MALE 10-18Y < 20 ADULT MALE < 40 Performed By: #### 2 243-4 #### DWAYNE Nair ([id number]) [facility] ([facility]) [address] [place] [address] Progesteroneon 09-11-2024 Progesterone [Mass/Vol] 43.6 ng/mL Normal [facility] Comment on above: Order Comment: Send with stat technical sme Result Comment: Ref Values Male <0.3- 1.2 Follicular Phase <0.3- 1.4 Luteal Phase 3.3-25.6 Mid-Luteal Phase 4.4-28.0 Postmenopausal <0.3- 0.7 Females: 1st Trimester 11.2- 90.0 2nd Trimester 25.6- 89.4 3RD Trimester 48.4-422.5 Patients receiving DHEA-S supplements may show false elevation of progesterone for results near 1.0 ng/mL. Contact laboratory at [phone] if alternative testing is needed. Performed By: #### 3 4549-6 #### DWAYNE Nair ([id number]) [facility] ([facility]) [address] [place] [address] Thyrotropinon 09-11-2024 TSH Qn 2.28 m[IU]/L Normal 0.44-3.98 [facility] Comment on above: Order Comment: REF V ALUES FOLLICULAR PHASE 20-144 MID CYCLE 64-357 LUTEAL PHASE 56-214 POSTMENOPAUSE < 32 PREPUBERTY < 20 FEMALE 10-18Y 8-110 MALE 10-18Y < 20 ADULT MALE < 40 Performed By: #### 2 243-4 #### DWAYNE Nair ([id number]) [facility] ([facility]) [address] [place] [address] Choriogonadotropin.beta subu niton 09-09-2024 HCG.beta subunit Qn 101 m[IU]/mL High <5 [facility] Comment on above: Order Comment: REF V [...] By: #### 2 243-4 #### DWAYNE Nair ([id number]) [facility] ([facility]) [address] [place] [address] Progesteroneon 09-09-2024 Progesterone [Mass/Vol] 31.9 ng/mL Normal [facility] Comment on above: Order Comment: [...] results near 1.0 ng/mL. Contact laboratory at [phone] if alternative testing is needed. Performed By: #### 2 243-4 #### DWAYNE Nair ([id number]) [facility] ([facility]) [address] [place] [address] Estradiolon 09-04-2024 E2 [Mass/Vol] 222 pg/mL Normal [facility] Comment on above: Order Comment: REF V ALUES FOLLICULAR PHASE 20-144 MID CYCLE 64-357 LUTEAL PHASE 56-214 POSTMENOPAUSE < 32 PREPUBERTY < 20 FEMALE 10-18Y 8-110 MALE 10-18Y < 20 ADULT MALE < 40 Performed By: #### 2 243-4 #### DWAYNE Nair ([id number]) [facility] ([facility]) [address] [place] [address] Progesteroneon 09-04-2024 Progesterone [Mass/Vol] 33.6 ng/mL Normal [facility] Comment on above: Result Comment: Ref Values Male <0.3- 1.2 Follicular Phase <0.3- 1.4 Luteal Phase 3.3-25.6 Mid-Luteal Phase 4.4-28.0 Postmenopausal <0.3- 0.7 Females: 1st Trimester 11.2- 90.0 2nd Trimester 25.6- 89.4 3RD Trimester 48.4-422.5 Patients receiving DHEA-S supplements may show false elevation of progesterone for results near 1.0 ng/mL. Contact laboratory at [phone] if alternative testing is needed. Performed By: #### 2 243-4 #### DWAYNE Nair ([id number]) [facility] ([facility]) [address] [place] [address] Progesteroneon 08-25-2024 Progesterone [Mass/Vol] 0.5 ng/mL Normal [facility] Comment on above: Order Comment: [...] results near 1.0 ng/mL. Contact laboratory at [phone] if alternative testing is needed. Performed By: #### 2 243-4 #### DWAYNE Nair ([id number]) [facility] ([facility]) [address] [place] [address] Estradiolon 08-21-2024 E2 [Mass/Vol] 427 pg/mL Normal [facility] Comment on above: Order Comment: REF V ALUES FOLLICULAR PHASE 20-144 MID CYCLE 64-357 LUTEAL PHASE 56-214 POSTMENOPAUSE < 32 PREPUBERTY < 20 FEMALE 10-18Y 8-110 MALE 10-18Y < 20 ADULT MALE < 40 Performed By: #### 2 243-4 #### DWAYNE Nair ([id number]) [facility] ([facility]) [address] [place] [address] Lutropinon 08-21-2024 Lutropin Qn 11.4 IU/L Normal [facility] Comment on above: Result Comment: LH R eference Values Follicular Phase 1.9-12.5 IU/L Mid-Cycle 8.7-76.3 IU/L Luteal Phase 0.5-16.9 IU/L Post Menopause 5.0-55.2 IU/L Children 0- 6.0 IU/L Adult Male 18-70 years 1.5- 9.3 IU/L Adult Male >70 years 3.1-34.6 IU/L Performed By: #### 2 1198-7 #### VILLATORO ENRIQUETA ([id number]) [facility] ([facility]) [address] [place] [address] Progesteroneon 08-21-2024 Progesterone [Mass/Vol] 0.6 ng/mL Normal U [facility] Comment on above: Result Comment: Ref Values Male <0.3- 1.2 Follicular Phase <0.3- 1.4 Luteal Phase 3.3-25.6 Mid-Luteal Phase 4.4-28.0 Postmenopausal <0.3- 0.7 Females: 1st Trimester 11.2- 90.0 2nd Trimester 25.6- 89.4 3RD Trimester 48.4-422.5 Patients receiving DHEA-S supplements may show false elevation of progesterone for results near 1.0 ng/mL. Contact laboratory at [phone] if alternative testing is needed. Performed By: #### 2 243-4 #### DWAYNE Nair ([id number]) [facility] ([facility]) [address] [place] [address] US PELVIS TRANSABDOMINAL WIT H TRANSVAGINALon 08-21-2024 US PELVIS TRANSABDOMINAL WITH TRANSVAGINAL Interpreted By: Jeremy Brower, STUDY: US PELVIS TRANSABDOMINAL WITH TRANSVAGINAL; 08/21/2024 8:38 am INDICATION: Signs/Symptoms:ROMULO PABLO ,Z31.83 Encounter for assisted reproductive fertility procedure cycle COMPARISON: 08/14/2024 ACCESSION NUMBER(S): [id number] ORDERING CLINICIAN: LEVON BRAXTON TECHNIQUE: Multiple multiplanar [...] Jeremy Brower 08/22/2024 10:52 AM Dictation workstation: [id number] [facility] Choriogonadotropin.beta subu niton 08-14-2024 HCG.beta subunit Qn m[IU]/mL Normal <5 [facility] Comment on above: Order Comment: Total HCG measurement is performed using the [employer] Access Immunoassay which detects intact HCG and free beta HCG subunit. This test is not indicated for use as a tumor marker. HCG testing is performed using a different test methodology at [facility] other [facility]. Direct result comparison should only be made within the same method. Performed By: #### 2 1198-7 #### VILLATORO ENRIQUETA ([id number]) [facility] ([facility]) [address] [place] [address] Estradiolon 08-14-2024 E2 [Mass/Vol] 42 pg/mL [facility] Comment on above: Order Comment: Total HCG measurement is performed using the Tutu Goddard Access Immunoassay which detects intact HCG and free beta HCG subunit. This test is not indicated for use as a tumor marker. HCG testing is performed using a different test methodology at [facility] than [facility]. Direct result comparison should only be made within the same method. Performed By: #### 2 1198-7 #### SHAUNA ROBISON ([id number]) [facility] ([facility]) [address] [place], [place] [address] Follitropin and Lutropin rhoades el Qnon 08-14-2024 Follitropin Qn 6.4 IU/L [facility] Comment on above: Order Comment: Total HCG measurement is performed using the Tutu Nestor Access Immunoassay which detects intact HCG and free beta HCG subunit. This test is not indicated for use as a tumor marker. HCG testing is performed using a different test methodology at [facility]. Direct result comparison should only be made within the same method. Result Comment: FSH Ref Values Follicular 2.0-12.0 IU/L Mid-Cycle 12.0-25.0 IU/L Luteal Phase 2.0-12.0 IU/L Menopause 30.0-150.0 IU/L Pre-puberty 50% Adult IU/L Adult Male 2.0-10.0 IU/L Infants 0.0-1.0 IU/L Performed By: #### 2 1198-7 #### SHAUNA ROBISON ([id number]) [facility] ([facility]) [address] [place] [address] Lutropin Qn 5.0 IU/L [facility] Comment on above: Order Comment: Total HCG measurement is performed using the Tutu Nestor Access Immunoassay which detects intact HCG and free beta HCG subunit. This test is not indicated for use as a tumor marker. HCG testing is performed using a different test methodology at [facility]. Direct result comparison should only be made within the same method. Result Comment: LH R eference Values Follicular Phase 1.9-12.5 IU/L Mid-Cycle 8.7-76.3 IU/L Luteal Phase 0.5-16.9 IU/L Post Menopause 5.0-55.2 IU/L Children 0- 6.0 IU/L Adult Male 18-70 years 1.5- 9.3 IU/L Adult Male >70 years 3.1-34.6 IU/L Performed By: #### 2 1198-7 #### SHAUNA ROBISON ([id number]) [facility] ([facility]) [facility] [place] [address] Progesteroneon 08-14-2024 Progesterone [Mass/Vol] 0.5 ng/mL Normal [facility] Comment on above: Order Comment: Total HCG measurement is performed using the Tutu Nestor Access Immunoassay which detects intact HCG and free beta HCG subunit. This test is not indicated for use as a tumor marker. HCG testing is performed using a different test methodology at [facility] than [facility]. Direct result comparison should only be made within the same method. Result Comment: Ref Values Male <0.3- 1.2 Follicular Phase <0.3- 1.4 Luteal Phase 3.3-25.6 Mid-Luteal Phase 4.4-28.0 Postmenopausal <0.3- 0.7 Females: 1st Trimester 11.2- 90.0 2nd Trimester 25.6- 89.4 3RD Trimester 48.4-422.5 Patients receiving DHEA-S supplements may show false elevation of progesterone for results near 1.0 ng/mL. Contact laboratory at [phone] if alternative testing is needed. Performed By: #### 2 1198-7 #### SHAUNA ROBISON ([id number]) [facility] ([facility]) [address] [place] [address] Thyrotropinon 08-14-2024 TSH Qn 1.86 m[IU]/L Normal 0.44-3.98 [facility] Comment on above: Order Comment: Total HCG measurement is performed using the Tutu Nestor Access Immunoassay which detects intact HCG and free beta HCG subunit. This test is not indicated for use as a tumor marker. HCG testing is performed using a different test methodology at [facility] than [facility]. Direct result comparison should only be made within the same method. Performed By: #### 2 1198-7 #### SHAUNA ROBISON ([id number]) [facility] ([facility]) [address] [place], [place] [address] US PELVIS TRANSABDOMINAL WIT H TRANSVAGINALon 08-14-2024 US PELVIS TRANSABDOMINAL WITH TRANSVAGINAL Interpreted By: Ravi Triplett, STUDY: US PELVIS TRANSABDOMINAL WITH TRANSVAGINAL; ; 08/14/2024 8:54 am INDICATION: Signs/Symptoms:ROMULO WAKEFIELD. COMPARISON: 06/24/2024 ACCESSION NUMBER(S): [id number] ORDERING CLINICIAN: LEVON BRAXTON TECHNIQUE: Multiple transabdominal [...] Ravi Triplett 08/15/2024 2:03 PM Dictation workstation: [id number] [facility] Internal Medicine Office Vis malik 07-16-2024 Internal Medicine Office Visit [facility] [address] [place] [address] OFFICE VISIT Date of Service: 07/20/24 MR#: [id number] Acct: [id number] Name: JOSEPHARINBARBY EDWINA Rep #: [id number] : 1990 Provider: Dr. 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 She was seeing a provider in [place] and last saw them in April 2023. [...] patient follows with a fertility specialist in [place]. She just completed an egg retrieval last [...] range of (more content not included)... Normal [facility] Estradiolon 06-24-2024 E2 [Mass/Vol] 453 pg/mL Normal [facility] Comment on above: Order Comment: Total HCG measurement is performed using the Tutu Goddard Access Immunoassay which detects intact HCG and free beta HCG subunit. This test is not indicated for use as a tumor marker. HCG testing is performed using a different test methodology at [facility]. Direct result comparison should only be made within the same method. Performed By: #### 2 1198-7 #### SHAUNA ROBISON ([id number]) [facility] ([facility]) [address] [place] [address] Lutropinon 06-24-2024 Lutropin Qn 3.1 IU/L Normal [facility] Comment on above: Result Comment: LH R eference Values Follicular Phase 1.9-12.5 IU/L Mid-Cycle 8.7-76.3 IU/L Luteal Phase 0.5-16.9 IU/L Post Menopause 5.0-55.2 IU/L Children 0- 6.0 IU/L Adult Male 18-70 years 1.5- 9.3 IU/L Adult Male >70 years 3.1-34.6 IU/L Performed By: #### 2 1198-7 #### SHAUNA ROBISON ([id number]) [facility] ([facility]) [address] [place] [address] Progesteroneon 06-24-2024 Progesterone [Mass/Vol] 0.6 ng/mL Normal [facility] Comment on above: Result Comment: Ref Values Male <0.3- 1.2 Follicular Phase <0.3- 1.4 Luteal Phase 3.3-25.6 Mid-Luteal Phase 4.4-28.0 Postmenopausal <0.3- 0.7 Females: 1st Trimester 11.2- 90.0 2nd Trimester 25.6- 89.4 3RD Trimester 48.4-422.5 Patients receiving DHEA-S supplements may show false elevation of progesterone for results near 1.0 ng/mL. Contact laboratory at [phone] if alternative testing is needed. Performed By: #### 2 1198-7 #### SHAUNA ROBISON ([id number]) [facility] ([facility]) [address] [place] [address] GERRY US PELVIS LIMITED FOLLIC LES-FOLLICLE STUDIES PERFORMEDon 06-24-2024 GERRY US PELVIS LIMITED FOLLICLES-FOLLICLE STUDIES PERFORMED Interpreted By: Xiang Bowden, STUDY: US PELVIS TRANSABDOMINAL WITH TRANSVAGINAL; 06/24/2024 9:01 am INDICATION: Signs/Symptoms:ROMULO WAKEFIELD. ,Z31.83 Encounter for assisted reproductive fertility procedure cycle COMPARISON: None. ACCESSION NUMBER(S): [id number] ORDERING CLINICIAN: LEVON BRAXTON TECHNIQUE: Multiple multiplanar [...] Xiang Bowden 06/25/2024 6:46 AM Dictation workstation: [id number] [facility] US PELVIS TRANSABDOMINAL WIT H TRANSVAGINALon 06-24-2024 US PELVIS TRANSABDOMINAL WITH TRANSVAGINAL Interpreted By: Xiang Bowden, STUDY: US PELVIS TRANSABDOMINAL WITH TRANSVAGINAL; 06/24/2024 9:01 am INDICATION: Signs/Symptoms:ROMULO [place]KE[place]. ,Z31.83 Encounter for assisted reproductive fertility procedure cycle COMPARISON: None. ACCESSION NUMBER(S): [id number] ORDERING CLINICIAN: LEVON BRAXTON TECHNIQUE: Multiple multiplanar [...] Xiang Bowden 06/25/2024 6:46 AM Dictation workstation: [id number] Normal [facility] Estradiolon 06-22-2024 E2 [Mass/Vol] 124 pg/mL Normal [facility] Comment on above: Order Comment: REF V ALUES FOLLICULAR PHASE 20-144 MID CYCLE 64-357 LUTEAL PHASE 56-214 POSTMENOPAUSE < 32 PREPUBERTY < 20 FEMALE 10-18Y 8-110 MALE 10-18Y < 20 ADULT MALE < 40 Performed By: #### 2 243-4 #### DWAYNE Nair ([id number]) [facility] ([facility]) [address] [place] [address] Lutropinon 06-22-2024 Lutropin Qn 1.9 IU/L [facility] Comment on above: Result Comment: LH R eference Values Follicular Phase 1.9-12.5 IU/L Mid-Cycle 8.7-76.3 IU/L Luteal Phase 0.5-16.9 IU/L Post Menopause 5.0-55.2 IU/L Children 0- 6.0 IU/L Adult Male 18-70 years 1.5- 9.3 IU/L Adult Male >70 years 3.1-34.6 IU/L Performed By: #### 1 0501-5 #### DWAYNE Nair ([id number]) [facility] ([facility]) [address] [place] [address] Progesteroneon 06-22-2024 Progesterone [Mass/Vol] 0.4 ng/mL Normal [facility] Comment on above: Result Comment: Ref Values Male <0.3- 1.2 Follicular Phase <0.3- 1.4 Luteal Phase 3.3-25.6 Mid-Luteal Phase 4.4-28.0 Postmenopausal <0.3- 0.7 Females: 1st Trimester 11.2- 90.0 2nd Trimester 25.6- 89.4 3RD Trimester 48.4-422.5 Patients receiving DHEA-S supplements may show false elevation of progesterone for results near 1.0 ng/mL. Contact laboratory at [phone] if alternative testing is needed. Performed By: #### 2 1198-7 #### VILLATORO ENRIQUETA ([id number]) [facility] ([facility]) [address] [id number] GERRY US PELVIS LIMITED FOLLIC LES-FOLLICLE STUDIES PERFORMEDon 06-22-2024 GERRY US PELVIS LIMITED FOLLICLES-FOLLICLE STUDIES PERFORMED Interpreted By: Xiang Bowden, STUDY: US PELVIS TRANSABDOMINAL WITH TRANSVAGINAL; 06/22/2024 9:02 am INDICATION: Signs/Symptoms:CLIFFKLEVER ZUNIGAMichaelJai ,Z31.83 Encounter for assisted reproductive fertility procedure cycle COMPARISON: None. ACCESSION NUMBER(S): [id number] ORDERING CLINICIAN: LEVON BRAXTON TECHNIQUE: Multiple multiplanar [...] Xiang Bowden 06/23/2024 5:37 AM Dictation workstation: [id number] [facility] US PELVIS TRANSABDOMINAL WIT H TRANSVAGINALon 06-22-2024 US PELVIS TRANSABDOMINAL WITH TRANSVAGINAL Interpreted By: Xiang Bowden, STUDY: US PELVIS TRANSABDOMINAL WITH TRANSVAGINAL; 06/22/2024 9:02 am INDICATION: Signs/Symptoms:ROMULO PABLO ,Z31.83 Encounter for assisted reproductive fertility procedure cycle COMPARISON: None. ACCESSION NUMBER(S): [id number] ORDERING CLINICIAN: LEVON BRAXTON TECHNIQUE: Multiple multiplanar [...] Xiang Bowden 06/23/2024 5:37 AM Dictation workstation: [id number] [facility] Estradiolon 06-19-2024 E2 [Mass/Vol] 49 pg/mL [facility] Comment on above: Order Comment: REF V ALUES FOLLICULAR PHASE 20-144 MID CYCLE 64-357 LUTEAL PHASE 56-214 POSTMENOPAUSE < 32 PREPUBERTY < 20 FEMALE 10-18Y 8-110 MALE 10-18Y < 20 ADULT MALE < 40 Performed By: #### 2 243-4 #### DWAYNE Nair ([id number]) [facility] ([facility]) [address] [place] [address] Lutropinon 06-19-2024 Lutropin Qn 7.0 IU/L Normal [facility] Comment on above: Result Comment: LH R eference Values Follicular Phase 1.9-12.5 IU/L Mid-Cycle 8.7-76.3 IU/L Luteal Phase 0.5-16.9 IU/L Post Menopause 5.0-55.2 IU/L Children 0- 6.0 IU/L Adult Male 18-70 years 1.5- 9.3 IU/L Adult Male >70 years 3.1-34.6 IU/L Performed By: #### 1 0501-5 #### DWAYNE Nair ([id number]) [facility] ([facility]) [address] [place] [address] Progesteroneon 06-19-2024 Progesterone [Mass/Vol] 0.5 ng/mL Normal [facility] Comment on above: Result Comment: Ref Values Male <0.3- 1.2 Follicular Phase <0.3- 1.4 Luteal Phase 3.3-25.6 Mid-Luteal Phase 4.4-28.0 Postmenopausal <0.3- 0.7 Females: 1st Trimester 11.2- 90.0 2nd Trimester 25.6- 89.4 3RD Trimester 48.4-422.5 Patients receiving DHEA-S supplements may show false elevation of progesterone for results near 1.0 ng/mL. Contact laboratory at [phone] if alternative testing is needed. Performed By: #### 2 839-9 #### DWAYNE Nair ([id number]) [facility] ([facility]) [address] [place] [address] GERRY US PELVIS LIMITED FOLLIC LES-FOLLICLE STUDIES PERFORMEDon 06-19-2024 GERRY US PELVIS LIMITED FOLLICLES-FOLLICLE STUDIES PERFORMED Interpreted By: Lawson Wynn, STUDY: US PELVIS TRANSABDOMINAL WITH TRANSVAGINAL; 06/19/2024 9:11 am INDICATION: Signs/Symptoms:ROMULO PABLO ,Z31.83 Encounter for assisted reproductive fertility procedure cycle COMPARISON: Prior exam from 06/15/2024.. ACCESSION NUMBER(S): [id number] ORDERING CLINICIAN: LEVON BRAXTON TECHNIQUE: Multiple multiplanar [...] Lawson Wynn 06/20/2024 4:53 PM Dictation workstation: [id number] [facility] US PELVIS TRANSABDOMINAL WIT H TRANSVAGINALon 06-19-2024 US PELVIS TRANSABDOMINAL WITH TRANSVAGINAL Interpreted By: Lawson Wynn, STUDY: US PELVIS TRANSABDOMINAL WITH TRANSVAGINAL; 06/19/2024 9:11 am INDICATION: Signs/Symptoms:ROMULO [place]KE[place]. ,Z31.83 Encounter for assisted reproductive fertility procedure cycle COMPARISON: Prior exam from 06/15/2024.. ACCESSION NUMBER(S): [id number] ORDERING CLINICIAN: LEVON BRAXTON TECHNIQUE: Multiple multiplanar [...] Lawson Wynn 06/20/2024 4:53 PM Dictation workstation: [id number] Normal [facility] Choriogonadotropin.beta subu niton 06-15-2024 HCG.beta subunit Qn m[IU]/mL Normal <5 [facility] Comment on above: Order Comment: Total HCG measurement is performed using the Tutu Nestor Access Immunoassay which detects intact HCG and free beta HCG subunit. This test is not indicated for use as a tumor marker. HCG testing is performed using a different test methodology at [facility]. Direct result comparison should only be made within the same method. Performed By: #### 2 1198-7 #### SHAUNA ROBISON ([id number]) [facility] ([facility]) [address] [place] [address] Estradiolon 06-15-2024 E2 [Mass/Vol] 47 pg/mL [facility] Comment on above: Order Comment: REF V ALUES FOLLICULAR PHASE 20-144 MID CYCLE 64-357 LUTEAL PHASE 56-214 POSTMENOPAUSE < 32 PREPUBERTY < 20 FEMALE 10-18Y 8-110 MALE 10-18Y < 20 ADULT MALE < 40 Performed By: #### 2 243-4 #### DWAYNE Nair ([id number]) [facility] ([facility]) [address] [place] [address] Follitropin and Lutropin rhoades el Qnon 06-15-2024 Follitropin Qn 5.0 IU/L [facility] Comment on above: Result Comment: FSH Ref Values Follicular 2.0-12.0 IU/L Mid-Cycle 12.0-25.0 IU/L Luteal Phase 2.0-12.0 IU/L Menopause 30.0-150.0 IU/L Pre-puberty 50% Adult IU/L Adult Male 2.0-10.0 IU/L Infants 0.0-1.0 IU/L Performed By: #### 3 4549-6 #### DWAYNE Nair ([id number]) [facility] ([facility]) [address] [place] [address] Lutropin Qn 2.9 IU/L [facility] Comment on above: Result Comment: LH R eference Values Follicular Phase 1.9-12.5 IU/L Mid-Cycle 8.7-76.3 IU/L Luteal Phase 0.5-16.9 IU/L Post Menopause 5.0-55.2 IU/L Children 0- 6.0 IU/L Adult Male 18-70 years 1.5- 9.3 IU/L Adult Male >70 years 3.1-34.6 IU/L Performed By: #### 3 4549-6 #### DWAYNE Nair ([id number]) [facility] ([facility]) [address] [place] [address] Progesteroneon 06-15-2024 Progesterone [Mass/Vol] 0.5 ng/mL Normal [facility] Comment on above: Result Comment: Ref Values Male <0.3- 1.2 Follicular Phase <0.3- 1.4 Luteal Phase 3.3-25.6 Mid-Luteal Phase 4.4-28.0 Postmenopausal <0.3- 0.7 Females: 1st Trimester 11.2- 90.0 2nd Trimester 25.6- 89.4 3RD Trimester 48.4-422.5 Patients receiving DHEA-S supplements may show false elevation of progesterone for results near 1.0 ng/mL. Contact laboratory at [phone] if alternative testing is needed. Performed By: #### 2 839-9 #### DWAYNE Nair ([id number]) [facility] ([facility]) [address] [place] [address] Thyrotropinon 06-15-2024 TSH Qn 2.68 m[IU]/L Normal 0.44-3.98 [facility] Comment on above: Order Comment: TSH t esting is performed using different testing methodology at [facility]. Direct result comparisons should only be made within the same method. Performed By: #### 3 016-3 #### VILLATORO ENRIQUETA ([id number]) [facility] ([facility]) [address] [place] [address] US PELVIS TRANSABDOMINAL WIT H TRANSVAGINALon 06-15-2024 US PELVIS TRANSABDOMINAL WITH TRANSVAGINAL Interpreted By: Dyllan De Jesus, STUDY: US PELVIS TRANSABDOMINAL WITH TRANSVAGINAL; ; 06/15/2024 8:31 am INDICATION: Signs/Symptoms:Ferti lity. COMPARISON: None. ACCESSION NUMBER(S): [id number] ORDERING CLINICIAN: LEVON BRAXTON TECHNIQUE: Multiple multiplanar [...] De Jesus 06/15/2024 12:12 PM Dictation workstation: [id number] [facility] US Pelvis transvaginalon 1. Single follicle within the right ovary, as above. 2. Tiny hypoechoic focus in the endometrium, of uncertain etiology. MACRO: None Signed by: Dyllan De Jesus 06/15/2024 12:12 PM Dictation workstation: [id number] Interpreted By: Dyllan De Jesus, STUDY: US PELVIS TRANSABDOMINAL WITH TRANSVAGINAL; ; 06/15/2024 8:31 am INDICATION: Signs/Symptoms:Ferti lity. COMPARISON: None. ACCESSION NUMBER(S): [id number] ORDERING CLINICIAN: LEVON BRAXTON TECHNIQUE: Multiple multiplanar [...] MD - 06/15/2024 Interpreted By: Dyllan De Jesus, STUDY: US PELVIS TRANSABDOMINAL WITH TRANSVAGINAL; ; 06/15/2024 8:31 am INDICATION: Signs/Symptoms:Ferti lity. COMPARISON: None. ACCESSION NUMBER(S): [id number] ORDERING CLINICIAN: LEVON BRAXTON TECHNIQUE: Multiple multiplanar [...] De Jesus 06/15/2024 12:12 PM Dictation workstation: [id number] [facility] Work Phone: Radiology Study observation (narrative) [facility] Work Phone: US Pelvis transvaginalOrdere d By: Dyllan De Jesus on 06-15-2024 [facility] Work Phone: Antimullerian Hormone, Serum on 06-02-2024 AMH, SERUM 3.66 ng/mL Normal . [facility] Comment on above: Result Comment: For assays employing antibodies, the possibility exists for interference by heterophile antibodies in the samples.1 1.Adele Messina Interferences in Immunoassays - still a threat. Clin. Chem. 2000; 46: 2974-0099. This test was developed and its performance characteristics determined by [employer] (formerly [employer]). It has not been cleared or approved by the Food and Drug Administration. Reference Range: Females 31 - 35y: 0.66 - 8.75 Median 3.00 AMH concentrations of >= 1.06 ng/mL is correlated with a better response to ovarian stimulation, produced more retrievable oocytes and higher odds of live according to Thanh et al. Fertility and Sterility. 2010: 94:2532-8445. The current AMH test method correlates with [...] an AMH-secreting ovarian tumor. Performed By: #### M 100.1999, M100.3200 #### [facility] [address] [place], [address] PROLACTIN 4465on 06-02-2024 PROLACTIN 7.8 ng/mL Normal 4.8-33.4 [facility] Comment on above: Performed By: #### M 100.2000, M100.3200 #### [facility] [address] [place], [address] V-Zoster IgG (Immunity)on V ZOSTER IgG 1347 index Normal Immune >165 [facility] Comment on above: Result Comment: Nega tive <135 Equivocal 135 - 165 Positive >165 A positive result generally indicates exposure to the pathogen or administration of specific immunoglobulins, but it is not indication of active infection or stage of disease. Performed at: [facility] [address] [place] [id number] Rinkman: Kolton Workman MD, Phone: [phone] Performed at: [address] [id number] Rinkman: Huan Kuhn PhD, Phone: [phone] Performed By: #### M , M1.3200 #### [facility] [address] [place], [place], [address] HCG BETA-SUBUNIT QUANT.on HCG B-SUBUNIT < 1 Normal . [facility] Comment on above: Order Comment: N Result Comment: Fema le (Non-) 0 - 5 (Postmenopausal) 0 - 8 Female () Weeks of Gestation 3 6 - 71 4 10 - 750 5 017 - 8949 6 383 - 95680 7 5527 -369824 8 36000 -458371 9 71047 -879030 10 05887 -941147 12 07948 -757361 14 02528 - 83306 15 90337 - 91286 16 6936 - 73014 17 8184 - 04216 18 1541 - 64479 Oswaldo ECLIA methodology Performed By: #### M , .0 #### [facility] [address] [place], [place], [address] PROGESTERONE 4317on 05-28-20 24 PROGESTERONE 0.2 ng/mL Normal . [facility] Comment on above: Order Comment: N Result Comment: Foll icular phase 0.1 - 0.9 Luteal phase 1.8 - 23.9 Ovulation phase 0.1 - 12.0 First trimester 11.0 - 44.3 Second trimester 25.4 - 83.3 Third trimester 58.7 - 214.0 Postmenopausal 0.0 - 0.1 Performed at: [facility] [id number] Rinkman: Huan Kuhn PhD, Phone: [phone] Performed By: #### Jennifer , .0 #### [facility] [address] [place], [place], [address] [id number] 05-27-2024 ABO and Rh group Nom (Bld) Blood group B Rh(D) negative Normal [facility] Comment on above: Performed By: #### M , M100.3200 #### [facility] [address] [place], [place], [address] CBC W/Diff, Automatedon 05-01 Absolute Lymph 2.52 X10 3/uL Normal 0.83-4.51 [facility] Comment on above: Performed By: #### L 3100.5140, L509.3000, L3890.6100, L100.0100, L801.2600, L501.9520, L3100.5125, L506.1000, L3400.0000, L500.4050, B882-1, L509.8000, L3100.5400, L501.9985, L3890.6005, L509.4005, L3300.1750, L803.3000, L3890.6300, L3100.5170 ####[facility] [address] [place], [place], [address] Absolute Neut 6.0 X10 3/uL Normal 2.0-7.7 [facility] Comment on above: Performed By: #### L 3100.5140, L509.3000, L3890.6100, L100.0100, L801.2600, L501.9520, L3100.5125, L506.1000, L3400.0000, L500.4050, B882-1, L509.8000, L3100.5400, L501.9985, L3890.6005, L509.4005, L3300.1750, L803.3000, L3890.6300, L3100.5170 ####[facility] [address] [place], [place], [address] Basophils/100 WBC (Bld) 0.7 % Normal 0-1 [facility] Comment on above: Performed By: #### L 3100.5140, L509.3000, L3890.6100, L100.0100, L801.2600, L501.9520, L3100.5125, L506.1000, L3400.0000, L500.4050, B882-1, L509.8000, L3100.5400, L501.9985, L3890.6005, L509.4005, L3300.1750, L803.3000, L3890.6300, L3100.5170 ####[facility] [address] [place], [address](475) Eosinophils/100 WBC (Bld) 2.2 % Normal 0-5 [facility] Comment on above: Performed By: #### L 3100.5140, L509.3000, L3890.6100, L100.0100, L801.2600, L501.9520, L3100.5125, L506.1000, L3400.0000, L500.4050, B882-1, L509.8000, L3100.5400, L501.9985, L3890.6005, L509.4005, L3300.1750, L803.3000, L3890.6300, L3100.5170 ####[facility] [address] [place], [address] Erythrocyte distribution width (RBC) [Ratio] 12.6 % Normal 11.6-14.6 [facility] Comment on above: Performed By: #### L 3100.5140, L509.3000, L3890.6100, L100.0100, L801.2600, L501.9520, L3100.5125, L506.1000, L3400.0000, L500.4050, B882-1, L509.8000, L3100.5400, L501.9985, L3890.6005, L509.4005, L3300.1750, L803.3000, L3890.6300, L3100.5170 ####[facility] [address] [place], [address] Hematocrit (Bld) [Volume fraction] 45.4 % Normal 37-47 [facility] Comment on above: Performed By: #### L 3100.5140, L509.3000, L3890.6100, L100.0100, L801.2600, L501.9520, L3100.5125, L506.1000, L3400.0000, L500.4050, B882-1, L509.8000, L3100.5400, L501.9985, L3890.6005, L509.4005, L3300.1750, L803.3000, L3890.6300, L3100.5170 ####[facility] [address] [place], [place], [phone] Hemoglobin (Bld) [Mass/Vol] 14.7 g/dL Normal 12.0-15.0 [facility] Comment on above: Performed By: #### L 3100.5140, L509.3000, L3890.6100, L100.0100, L801.2600, L501.9520, L3100.5125, L506.1000, L3400.0000, L500.4050, B882-1, L509.8000, L3100.5400, L501.9985, L3890.6005, L509.4005, L3300.1750, L803.3000, L3890.6300, L3100.5170 ####[facility] [address] [place], [place], [phone] IG% 0.900 Normal 0.0-0.9 [facility] Comment on above: Result Comment: IG% - Immature Granulocytes (promyelocytes, myelocytes and metamyelocytes) > 1% indicates that a LEFT SHIFT is Present. Performed By: #### L 3100.5140, L509.3000, L3890.6100, L100.0100, L801.2600, L501.9520, L3100.5125, L506.1000, L3400.0000, L500.4050, B882-1, L509.8000, L3100.5400, L501.9985, L3890.6005, L509.4005, L3300.1750, L803.3000, L3890.6300, L3100.5170 ####[facility] [address] [facility] [place], [address] Lymphocytes/100 WBC (Bld) 26.9 % Normal 19-41 [facility] Comment on above: Performed By: #### L 3100.5140, L509.3000, L3890.6100, L100.0100, L801.2600, L501.9520, L3100.5125, L506.1000, L3400.0000, L500.4050, B882-1, L509.8000, L3100.5400, L501.9985, L3890.6005, L509.4005, L3300.1750, L803.3000, L3890.6300, L3100.5170 ####[facility] [address] [facility] [place], [address] MCH (RBC) [Entitic mass] 27.8 pg Normal 27.0-32.0 [facility] Comment on above: Performed By: #### L 3100.5140, L509.3000, L3890.6100, L100.0100, L801.2600, L501.9520, L3100.5125, L506.1000, L3400.0000, L500.4050, B882-1, L509.8000, L3100.5400, L501.9985, L3890.6005, L509.4005, L3300.1750, L803.3000, L3890.6300, L3100.5170 ####[facility] [address] [place], [address] MCHC (RBC) [Mass/Vol] 32.4 g/dL Normal 32-36 [facility] Comment on above: Performed By: #### L 3100.5140, L509.3000, L3890.6100, L100.0100, L801.2600, L501.9520, L3100.5125, L506.1000, L3400.0000, L500.4050, B882-1, L509.8000, L3100.5400, L501.9985, L3890.6005, L509.4005, L3300.1750, L803.3000, L3890.6300, L3100.5170 ####[facility] [address] [place], [place], [phone] MCV (RBC) [Entitic vol] 85.8 fL Normal 81-99 [facility] Comment on above: Performed By: #### L 3100.5140, L509.3000, L3890.6100, L100.0100, L801.2600, L501.9520, L3100.5125, L506.1000, L3400.0000, L500.4050, B882-1, L509.8000, L3100.5400, L501.9985, L3890.6005, L509.4005, L3300.1750, L803.3000, L3890.6300, L3100.5170 ####[facility] [address] [place], [address] Monocytes/100 WBC (Bld) 5.4 % Normal 0-10 [facility] Comment on above: Performed By: #### L 3100.5140, L509.3000, L3890.6100, L100.0100, L801.2600, L501.9520, L3100.5125, L506.1000, L3400.0000, L500.4050, B882-1, L509.8000, L3100.5400, L501.9985, L3890.6005, L509.4005, L3300.1750, L803.3000, L3890.6300, L3100.5170 ####[facility] [address] [place], [address] Neutrophils/100 WBC (Bld) 63.9 % Normal 47-70 [facility] Comment on above: Performed By: #### L 3100.5140, L509.3000, L3890.6100, L100.0100, L801.2600, L501.9520, L3100.5125, L506.1000, L3400.0000, L500.4050, B882-1, L509.8000, L3100.5400, L501.9985, L3890.6005, L509.4005, L3300.1750, L803.3000, L3890.6300, L3100.5170 ####[facility] [address] [place], [place], [phone] Nucleated RBC (Bld) [#/Vol] 0 10*3/uL Normal 0-5 [facility] Comment on above: Performed By: #### L 3100.5140, L509.3000, L3890.6100, L100.0100, L801.2600, L501.9520, L3100.5125, L506.1000, L3400.0000, L500.4050, B882-1, L509.8000, L3100.5400, L501.9985, L3890.6005, L509.4005, L3300.1750, L803.3000, L3890.6300, L3100.5170 ####[facility] [address] [place], [address] Platelet mean volume (Bld) [Entitic vol] 8.7 fL Normal 6.2-12.0 [facility] Comment on above: Performed By: #### L 3100.5140, L509.3000, L3890.6100, L100.0100, L801.2600, L501.9520, L3100.5125, L506.1000, L3400.0000, L500.4050, B882-1, L509.8000, L3100.5400, L501.9985, L3890.6005, L509.4005, L3300.1750, L803.3000, L3890.6300, L3100.5170 ####[facility] [address] [place], [place], [phone] Platelets (Bld) [#/Vol] 348 10*3/uL Normal 150-450 [facility] Comment on above: Performed By: #### L 3100.5140, L509.3000, L3890.6100, L100.0100, L801.2600, L501.9520, L3100.5125, L506.1000, L3400.0000, L500.4050, B882-1, L509.8000, L3100.5400, L501.9985, L3890.6005, L509.4005, L3300.1750, L803.3000, L3890.6300, L3100.5170 ####[facility] [address] [place], [place], [phone] RBC (Bld) [#/Vol] 5.29 10*6/uL Normal 4.2-5.4 [facility] Comment on above: Performed By: #### L 3100.5140, L509.3000, L3890.6100, L100.0100, L801.2600, L501.9520, L3100.5125, L506.1000, L3400.0000, L500.4050, B882-1, L509.8000, L3100.5400, L501.9985, L3890.6005, L509.4005, L3300.1750, L803.3000, L3890.6300, L3100.5170 ####[facility] [address] [place], [address] RDW SD 39.6 fl Normal 35.1-43.9 [facility] Comment on above: Performed By: #### L 3100.5140, L509.3000, L3890.6100, L100.0100, L801.2600, L501.9520, L3100.5125, L506.1000, L3400.0000, L500.4050, B882-1, L509.8000, L3100.5400, L501.9985, L3890.6005, L509.4005, L3300.1750, L803.3000, L3890.6300, L3100.5170 ####[facility] [address] [facility] [place], [place], [phone] WBC (Bld) [#/Vol] 9.4 10*3/uL Normal 4.4-11.0 [facility] Comment on above: Performed By: #### L 3100.5140, L509.3000, L3890.6100, L100.0100, L801.2600, L501.9520, L3100.5125, L506.1000, L3400.0000, L500.4050, B882-1, L509.8000, L3100.5400, L501.9985, L3890.6005, L509.4005, L3300.1750, L803.3000, L3890.6300, L3100.5170 ####[facility] [address] [place], [address] Comprehensive Metabolic [facility] 05-27-2024 Albumin [Mass/Vol] 3.8 g/dL Normal 3.2-5.0 [facility] Comment on above: Performed By: #### L 3100.5140, L509.3000, L3890.6100, L100.0100, L801.2600, L501.9520, L3100.5125, L506.1000, L3400.0000, L500.4050, B882-1, L509.8000, L3100.5400, L501.9985, L3890.6005, L509.4005, L3300.1750, L803.3000, L3890.6300, L3100.5170 ####[facility] [address] [facility] [place], [address] Albumin/Globulin [Mass ratio] 1.0 {ratio} Normal 0.9-2.4 [facility] Comment on above: Performed By: #### L 3100.5140, L509.3000, L3890.6100, L100.0100, L801.2600, L501.9520, L3100.5125, L506.1000, L3400.0000, L500.4050, B882-1, L509.8000, L3100.5400, L501.9985, L3890.6005, L509.4005, L3300.1750, L803.3000, L3890.6300, L3100.5170 ####[facility] [address] [place], [address] ALK P 86 U/L Normal 45-117 [facility] Comment on above: Performed By: #### L 3100.5140, L509.3000, L3890.6100, L100.0100, L801.2600, L501.9520, L3100.5125, L506.1000, L3400.0000, L500.4050, B882-1, L509.8000, L3100.5400, L501.9985, L3890.6005, L509.4005, L3300.1750, L803.3000, L3890.6300, L3100.5170 ####[facility] [address] [place], [address] ALT [Catalytic activity/Vol] 59 U/L High 13-56 [facility] Comment on above: Performed By: #### L 3100.5140, L509.3000, L3890.6100, L100.0100, L801.2600, L501.9520, L3100.5125, L506.1000, L3400.0000, L500.4050, B882-1, L509.8000, L3100.5400, L501.9985, L3890.6005, L509.4005, L3300.1750, L803.3000, L3890.6300, L3100.5170 ####[facility] [address] [place], [place], [phone] AST [Catalytic activity/Vol] 40 U/L High 15-37 [facility] Comment on above: Performed By: #### L 3100.5140, L509.3000, L3890.6100, L100.0100, L801.2600, L501.9520, L3100.5125, L506.1000, L3400.0000, L500.4050, B882-1, L509.8000, L3100.5400, L501.9985, L3890.6005, L509.4005, L3300.1750, L803.3000, L3890.6300, L3100.5170 ####[facility] [address] [place], [address] Bilirubin [Mass/Vol] 0.50 mg/dL Normal 0.20-1.00 [facility] Comment on above: Result Comment: For patients on eltrombopag therapy, use of Dimension [place] TBIL is not recommended. Performed By: #### L 3100.5140, L509.3000, L3890.6100, L100.0100, L801.2600, L501.9520, L3100.5125, L506.1000, L3400.0000, L500.4050, B882-1, L509.8000, L3100.5400, L501.9985, L3890.6005, L509.4005, L3300.1750, L803.3000, L3890.6300, L3100.5170 ####[facility] [address] [place], [address] BUN/CRE 11.7 RATIO Normal 10-20 [facility] Comment on above: Performed By: #### L 3100.5140, L509.3000, L3890.6100, L100.0100, L801.2600, L501.9520, L3100.5125, L506.1000, L3400.0000, L500.4050, B882-1, L509.8000, L3100.5400, L501.9985, L3890.6005, L509.4005, L3300.1750, L803.3000, L3890.6300, L3100.5170 ####[facility] [address] [place], [place], [phone] CA,Total 9.1 mg/dL Normal 8.5-10.1 [facility] Comment on above: Performed By: #### L 3100.5140, L509.3000, L3890.6100, L100.0100, L801.2600, L501.9520, L3100.5125, L506.1000, L3400.0000, L500.4050, B882-1, L509.8000, L3100.5400, L501.9985, L3890.6005, L509.4005, L3300.1750, L803.3000, L3890.6300, L3100.5170 ####[facility] [address] [place], [place], [phone] Chloride [Moles/Vol] 107 mmol/L Normal 98-107 [facility] Comment on above: Performed By: #### L 3100.5140, L509.3000, L3890.6100, L100.0100, L801.2600, L501.9520, L3100.5125, L506.1000, L3400.0000, L500.4050, B882-1, L509.8000, L3100.5400, L501.9985, L3890.6005, L509.4005, L3300.1750, L803.3000, L3890.6300, L3100.5170 ####[facility] [address] [place], [place], [phone]21) CO2 [Moles/Vol] 24.0 mmol/L Normal 21.0-32.0 [facility] Comment on above: Performed By: #### L 3100.5140, L509.3000, L3890.6100, L100.0100, L801.2600, L501.9520, L3100.5125, L506.1000, L3400.0000, L500.4050, B882-1, L509.8000, L3100.5400, L501.9985, L3890.6005, L509.4005, L3300.1750, L803.3000, L3890.6300, L3100.5170 ####[facility] [address] [place], [place], [phone] Creatinine [Mass/Vol] 0.68 mg/dL Normal 0.55-1.02 [facility] Comment on above: Result Comment: The validity of the calculated GFR GFRAA in patients over 70 years has not been determined. Clinical correlation is essential. Performed By: #### L 3100.5140, L509.3000, L3890.6100, L100.0100, L801.2600, L501.9520, L3100.5125, L506.1000, L3400.0000, L500.4050, B882-1, L509.8000, L3100.5400, L501.9985, L3890.6005, L509.4005, L3300.1750, L803.3000, L3890.6300, L3100.5170 ####[facility] [address] [place], [place], [id number] EST GFR - AA 126 mL/min Normal >60 [facility] Comment on above: Result Comment: Afri can Jamaican GFR Calc Performed By: #### L 3100.5140, L509.3000, L3890.6100, L100.0100, L801.2600, L501.9520, L3100.5125, L506.1000, L3400.0000, L500.4050, B882-1, L509.8000, L3100.5400, L501.9985, L3890.6005, L509.4005, L3300.1750, L803.3000, L3890.6300, L3100.5170 ####[facility] [address] [place], [address] GAP 7 Normal 5-15 [facility] Comment on above: Performed By: #### L 3100.5140, L509.3000, L3890.6100, L100.0100, L801.2600, L501.9520, L3100.5125, L506.1000, L3400.0000, L500.4050, B882-1, L509.8000, L3100.5400, L501.9985, L3890.6005, L509.4005, L3300.1750, L803.3000, L3890.6300, L3100.5170 ####[facility] [address] [place], [address] GFR/1.73 sq M.predicted among non-blacks MDRD (S/P/Bld) [Vol rate/Area] 104 mL/min/{1.73_m2} Normal >60 [facility] Comment on above: Result Comment: Non- GFR Calc Performed By: #### L 3100.5140, L509.3000, L3890.6100, L100.0100, L801.2600, L501.9520, L3100.5125, L506.1000, L3400.0000, L500.4050, B882-1, L509.8000, L3100.5400, L501.9985, L3890.6005, L509.4005, L3300.1750, L803.3000, L3890.6300, L3100.5170 ####[facility] [address] [place], [address] Globulin (S) [Mass/Vol] 4.0 g/dL Normal 2.2-4.2 [facility] Comment on above: Performed By: #### L 3100.5140, L509.3000, L3890.6100, L100.0100, L801.2600, L501.9520, L3100.5125, L506.1000, L3400.0000, L500.4050, B882-1, L509.8000, L3100.5400, L501.9985, L3890.6005, L509.4005, L3300.1750, L803.3000, L3890.6300, L3100.5170 ####[facility] [address] [place], [place], [phone] Glucose [Mass/Vol] 98 mg/dL Normal 74-106 [facility] Comment on above: Performed By: #### L 3100.5140, L509.3000, L3890.6100, L100.0100, L801.2600, L501.9520, L3100.5125, L506.1000, L3400.0000, L500.4050, B882-1, L509.8000, L3100.5400, L501.9985, L3890.6005, L509.4005, L3300.1750, L803.3000, L3890.6300, L3100.5170 ####[facility] [address] [facility] [place], [address] Potassium [Moles/Vol] 3.9 mmol/L Normal 3.5-5.1 [facility] Comment on above: Performed By: #### L 3100.5140, L509.3000, L3890.6100, L100.0100, L801.2600, L501.9520, L3100.5125, L506.1000, L3400.0000, L500.4050, B882-1, L509.8000, L3100.5400, L501.9985, L3890.6005, L509.4005, L3300.1750, L803.3000, L3890.6300, L3100.5170 ####[facility] [address] [place], [address] Sodium [Moles/Vol] 138 mmol/L Normal 136-145 [facility] Comment on above: Performed By: #### L 3100.5140, L509.3000, L3890.6100, L100.0100, L801.2600, L501.9520, L3100.5125, L506.1000, L3400.0000, L500.4050, B882-1, L509.8000, L3100.5400, L501.9985, L3890.6005, L509.4005, L3300.1750, L803.3000, L3890.6300, L3100.5170 ####[facility] [address] [place], [address] T PROT 7.8 g/dL Normal 6.4-8.2 [facility] Comment on above: Performed By: #### L 3100.5140, L509.3000, L3890.6100, L100.0100, L801.2600, L501.9520, L3100.5125, L506.1000, L3400.0000, L500.4050, B882-1, L509.8000, L3100.5400, L501.9985, L3890.6005, L509.4005, L3300.1750, L803.3000, L3890.6300, L3100.5170 ####[facility] [address] [place], [address] Urea nitrogen [Mass/Vol] 8 mg/dL Normal 7-18 [facility] Comment on above: Performed By: #### L 3100.5140, L509.3000, L3890.6100, L100.0100, L801.2600, L501.9520, L3100.5125, L506.1000, L3400.0000, L500.4050, B882-1, L509.8000, L3100.5400, L501.9985, L3890.6005, L509.4005, L3300.1750, L803.3000, L3890.6300, L3100.5170 ####[facility] [address] [place], [address] Estradiolon 05-27-2024 ESTRADIOL 133.9 pg/mL Normal [facility] Comment on above: Result Comment: NORM AL [...] TO DETERMINE ESTRADIOL CONCENTRATION. Performed By: #### L 3100.5140, L509.3000, L3890.6100, L100.0100, L801.2600, L501.9520, L3100.5125, L506.1000, L3400.0000, L500.4050, B882-1, L509.8000, L3100.5400, L501.9985, L3890.6005, L509.4005, L3300.1750, L803.3000, L3890.6300, L3100.5170 ####[facility] [address] [place], [place], [id number] Follicle Stimulating Hormone on 05-27-2024 FSH 5.8 mIU/mL Normal [facility] Comment on above: Result Comment: NORMAL REFERENCE RANGES FEMALE FOLLICULAR 2.3 - 12.6 mIU/mL MID-CYCLE PEAK 5.2 - 17.5 mIU/mL LUTEAL 1.7 - 12.9 mIU/mL POST-MENOPAUSAL ON MHT 5.9 - 72.8 mIU/mL NOT ON MHT 12.7 - 132.2 mlU/mL MALE 0.7 - 10.8 mIU/mL Performed By: #### L 3100.5140, L509.3000, L3890.6100, L100.0100, L801.2600, L501.9520, L3100.5125, L506.1000, L3400.0000, L500.4050, B882-1, L509.8000, L3100.5400, L501.9985, L3890.6005, L509.4005, L3300.1750, L803.3000, L3890.6300, L3100.5170 ####[facility] [address] [place], [address] HIV - WCHon 05-27-2024 HIV Non-Reactive Normal Nonreactive [facility] Comment on above: Performed By: #### M 100.1999, M1.3200 #### [facility] [address] [place], [address] Hemoglobin A1con 05-27-2024 HbA1c (Bld) [Mass fraction] 5.4 % Normal 3.8-5.6 [facility] Comment on above: Result Comment: Norm al < 5.7 % Prediabetic 5.7 - 6.4 % Diabetic >or= 6.5 % Please note range changes. Performed By: #### M 100.1999, M1.3200 #### [facility] [address] [place], [address] Hepatitis B Surface Antigeno n 05-27-2024 HEP B Surf Ag Non-Reactive Normal Nonreactive [facility] Comment on above: Performed By: #### M 100.1999, M100.3200 #### [facility] [address] [facility] [place], [address] Hepatitis C Antibodyon 05-27 Hepatitis C AB Non-Reactive Normal Nonreactive [facility] Comment on above: Result Comment: Non Reactive: < 0.8 Equivocal: >/= 0.8 to < 1.0 Reactive: >/= 1.0 The CDC requires that a reactive/equivocal HCV antibody result be sent out for confirmation. HCV Quant by PCR testing. Performed By: #### M 100.2000, M100.3200 #### [facility] [address] [place], [address] L509.8000on 05-27-2024 Syphilis Abs Non-Reactive Normal [facility] Comment on above: Performed By: #### L 3100.5140, L509.3000, L3890.6100, L100.0100, L801.2600, L501.9520, L3100.5125, L506.1000, L3400.0000, L500.4050, B882-1, L509.8000, L3100.5400, L501.9985, L3890.6005, L509.4005, L3300.1750, L803.3000, L3890.6300, L3100.5170 ####[facility] [address] [place], [address] Luteinizing Hormoneon 2023 LH 17.0 mIU/mL Normal [facility] Comment on above: Result Comment: NORMAL REFERENCE RANGES FEMALE FOLLICULAR 1.9 - 26.2 mIU/mL MID-CYCLE PEAK 22.8 - 76.1 mIU/mL LUTEAL 0.6 - 16.6 mIU/mL POST-MENOPAUSAL ON MHT 1.1 - 52.4 mIU/mL NOT ON MHT 8.6 - 61.8 mIU/mL MALE 1.2 - 10.6 mIU/mL Performed By: #### L 3100.5140, L509.3000, L3890.6100, L100.0100, L801.2600, L501.9520, L3100.5125, L506.1000, L3400.0000, L500.4050, B882-1, L509.8000, L3100.5400, L501.9985, L3890.6005, L509.4005, L3300.1750, L803.3000, L3890.6300, L3100.5170 ####[facility] [address] [place], [address] Rubella IgGon 05-27-2024 Rubella IgG Reactive Normal Nonreactive [facility] Comment on above: Result Comment: Anti body Results Interpretation of Immune Status Non Reactive Presumed Non-Immune Equivocal Equivocal Reactive Presumed Immune Performed By: #### L 3100.5140, L509.3000, L3890.6100, L100.0100, L801.2600, L501.9520, L3100.5125, L506.1000, L3400.0000, L500.4050, B882-1, L509.8000, L3100.5400, L501.9985, L3890.6005, L509.4005, L3300.1750, L803.3000, L3890.6300, L3100.5170 ####[facility] [address] [place], [place], [id number] Testosterone, Serum Totalon 05-27-2024 Testosterone [Mass/Vol] 44.25 ng/dL Normal [facility] Comment on above: Result Comment: CENT RAL 90% REFERENCE RANGES MALE AGE <50 197.44 - 669.58 ng/dL MALE AGE > or = 50 187.72 - 684.19 ng/dL FEMALE AGE <50 8.38 - 35.01 ng/dL FEMALE AGE > or = 50 <7.00 - 35.92 ng/dL Effective as of 04/25/21 Performed By: #### L 3100.5140, L509.3000, L3890.6100, L100.0100, L801.2600, L501.9520, L3100.5125, L506.1000, L3400.0000, L500.4050, B882-1, L509.8000, L3100.5400, L501.9985, L3890.6005, L509.4005, L3300.1750, L803.3000, L3890.6300, L3100.5170 ####[facility] [address] [place], [place], [id number] Thyroid Stim Hormone (TSH)on 05-27-2024 TSH 1.510 uIU/mL Normal 0.358-3.740 [facility] Comment on above: Performed By: #### L 3100.5140, L509.3000, L3890.6100, L100.0100, L801.2600, L501.9520, L3100.5125, L506.1000, L3400.0000, L500.4050, B882-1, L509.8000, L3100.5400, L501.9985, L3890.6005, L509.4005, L3300.1750, L803.3000, L3890.6300, L3100.5170 ####[facility] [address] [place], [address] Vitamin D,25 Hydroxyon 05-27 Vitamin D 25-OH 29.8 ng/mL Normal [facility] Comment on above: Result Comment: Tara min D 25(OH) Status Range Deficiency <20 ng/mL (50nmol/L) Insufficiency 20 - 30 ng/mL (50 - 75 nmol/L) Sufficiency 30 - 100 ng/mL (75 - 250 nmol/L) Toxicity >100 ng/mL (>250 nmol/L) Performed By: #### L 3100.5140, L509.3000, L3890.6100, L100.0100, L801.2600, L501.9520, L3100.5125, L506.1000, L3400.0000, L500.4050, B882-1, L509.8000, L3100.5400, L501.9985, L3890.6005, L509.4005, L3300.1750, L803.3000, L3890.6300, L3100.5170 ####[facility] [address] [place], [place], [id number] CNOVon 01-12-2024 CNOV Office Visit ([facility]) BARBY CABALLERO ([id number]) 1990 F Date Time Provider Department 01/12/24 10:30 AM GINA SAHU During your visit today, we recorded the following information about you: Temperature Pulse Respiration Blood pressure 97.9 degrees 134/minute 20/minute 118/78 Weight 120.3 kg Gina Sahu APRN.[facility] 01/12/2024 11:22 AM Signed CC: Patient presents [...] Patient agreeable to treatment plan. Gina Sahu APRN.[facility] Allergies As of Date: 01/12/2024 (No Active [...] MOUTH EVERY (more content not included)... Normal [facility] TSH W/FT4 REFLEXon TSH 1.264 uIU/mL Normal 0.550-4.780 [facility] Comment on above: Performed By: #### T SHQR #### [facility] (DEFAULT) [address] [place] [id number] PROGESTERONEon 04-03-2023 Progesterone 15.64 ng/mL Normal [facility] Comment on above: Result Comment: This test is not recommended for patients receiving DHEA due to cross reactivity of DHEA S in the progesterone assay. Reference Range: Males: 0.28-1.22 ng/mL Females: Follicular phase 0-1.40 ng/mL Luteal phase 3.34-25.56 ng/mL Midluteal phase 4.44-28.03 ng/mL Postmenopausal 0-0.73 ng/mL Performed By: #### P DIANDRA #### [facility] (DEFAULT) [address] [address] MAMMO DIAGNOSTIC WITH ADRIANA B ILATERALon 01-09-2023 MAMMO DIAGNOSTIC WITH ADRIANA BILATERAL EXAM: MAMMO DIAGNOSTIC WITH ADRIANA BILATERAL, US BREAST LIMITED UNILATERAL RIGHT, 01/09/2023 09:20 AM (accession [id number]), 01/09/2023 09:31 AM (accession [id number]) CLINICAL INDICATIONS: The patient reports right upper [...] Recommendation: Clinical correlation/manageme nt. Recommendation Laterality: Right [facility] MG Breast - bilateral Diagno sticon 01-09-2023 IMPRESSION: 1. No suspicious mammographic or sonographic findings in the right breast to explain symptoms. 2. No suspicious mammographic findings in the left breast. BI-RADS: 1: Negative Recommendation: Clinical correlation/manageme nt. Recommendation Laterality: Right OLOGY EXAM: MAMMO DIAGNOSTIC WITH ADRIANA BILATERAL, US BREAST LIMITED UNILATERAL RIGHT, 01/09/2023 09:20 AM (accession [id number]), 01/09/2023 09:31 AM (accession [id number]) CLINICAL INDICATIONS: The patient reports right upper [...] LIMITED UNILATERAL RIGHT, 01/09/2023 09:20 AM (accession [id number]), 01/09/2023 09:31 AM (accession [id number]) CLINICAL INDICATIONS: The patient reports right upper [...] Recommendation: Clinical correlation/manageme nt. Recommendation Laterality: Right [facility] Radiology Study observation (narrative) [facility] MG Breast - bilateral Diagno sticOrdered By: Nettie Trejo on 01-09-2023 [facility] US BREAST LIMITED UNILATERAL RIGHTon 01-09-2023 US BREAST LIMITED UNILATERAL RIGHT EXAM: MAMMO DIAGNOSTIC WITH ADRIANA BILATERAL, US BREAST LIMITED UNILATERAL RIGHT, 01/09/2023 09:20 AM (accession [id number]), 01/09/2023 09:31 AM (accession [id number]) CLINICAL INDICATIONS: The patient reports right upper [...] Clinical correlation/manageme nt. Recommendation Laterality: Right Normal [facility] HEMOGLOBIN [id number] By: Sa fred Carbajal on 09-27-2022 Average glucose Estimated from glycated hemoglobin (Bld) [Mass/Vol] 105 mg/dL [facility] HbA1c (Bld) [Mass fraction] 5.3 % 4.7 - 5.6 % [facility] HEMOGLOBIN A1Con 09-27-2022 Glucose [Mass/Vol] 105 mg/dL Normal [facility] Comment on above: Performed By: #### A 1CB #### [facility] (DEFAULT) [address] [place] [address] HbA1c (Bld) [Mass fraction] 5.3 % Normal 4.7-5.6 [facility] Comment on above: Performed By: #### A 1CB #### [facility] (DEFAULT) [address] [place] [address] LIPID PANEL WITH REFLEX TO M DEE LDLon 09-27-2022 Calculated LDL Cholesterol 51 mg/dL Normal 0-99 [facility] Comment on above: Result Comment: [<10 0 mg/dL: Optimal] [100-129 mg/dL: Near Optimal] [130-159 mg/dL: Borderline High] [160-189 mg/dL: High] [>189 mg/dL: Very High] Performed By: #### L IPDR #### [facility] (DEFAULT) [address] [place] [address] Cholesterol [Mass/Vol] 122 mg/dL Normal <200 [facility] Comment on above: Result Comment: [<20 0 mg/dL: Desirable] [200-239 mg/dL: Borderline High] [>239 mg/dL: High] Performed By: #### L IPDR #### [facility] (DEFAULT) [address] [place] [address] Cholesterol in HDL [Mass/Vol] 50 mg/dL Normal >=40 [facility] Comment on above: Result Comment: [<40 mg/dL: Low (High Risk)] [>59 mg/dL: High (Low Risk)] Performed By: #### L IPDR #### [facility] (DEFAULT) [address] [place] [address] Non HDL Cholesterol 72 mg/dL Normal <130 [facility] Comment on above: Performed By: #### L IPDR #### [facility] (DEFAULT) [address] [place] [address] Total Cholesterol/HDL Ratio 2.4 Normal <4.5 [facility] Comment on above: Performed By: #### L IPDR #### [facility] [address] [place] [address] Triglyceride [Mass/Vol] 104 mg/dL Normal <150 [facility] Comment on above: Result Comment: [<15 0 mg/dL: Desirable] [150-199 mg/dL: Borderline] [200-499 mg/dL: High] [>500 mg/dL: Very High] Performed By: #### L IPDR #### [facility] (DEFAULT) [address] [place] [address] Cholesterol [Mass/Vol] 122 mg/dL NINF - 200 mg/dL [facility] Comment on above: [<200 mg/dL: Desirab le] [200-239 mg/dL: Borderline High] [>239 mg/dL: High] Cholesterol in HDL [Mass/Vol] 50 mg/dL 40 - PINF mg/dL [facility] Comment on above: [<40 mg/dL: Low (Hig h Risk)] [>59 mg/dL: High (Low Risk)] Cholesterol in HDL [Mass/Vol] 72 mg/dL NINF - 130 mg/dL [facility] Cholesterol in LDL [Mass/Vol] 51 mg/dL 0 - 99 mg/dL [facility] Comment on above: [<100 mg/dL: Optimal ] [100-129 mg/dL: Near Optimal] [130-159 mg/dL: Borderline High] [160-189 mg/dL: High] [>189 mg/dL: Very High] Cholesterol.total/Mellissa sterol in HDL [Mass ratio] 2.4 {ratio} NINF - 4.5 [facility] Interpretation and review of laboratory results Normal [facility] Triglyceride [Mass/Vol] 104 mg/dL NINF - 150 mg/dL [facility] Comment on above: [<150 mg/dL: Desirab le] [150-199 mg/dL: Borderline] [200-499 mg/dL: High] [>500 mg/dL: Very High] [facility] PROLACTINon 09-27-2022 Prolactin [Mass/Vol] 4.4 ng/mL [facility] Comment on above: Reference Range: Females Non: 2.8-29.2 ng/mL : 9.7-208.5 ng/mL Postmenopausal: 1.8-20.3 ng/mL <2 years: 3.3-14.7 ng/mL 2-5 years: 1.0-12.8 ng/mL 6-10 years: 1.2-11.4 ng/mL 11-17 years: 1.4-14.3 ng/mL Males: 2.1-17.7 ng/mL [facility] Prolactin 4.4 ng/mL Normal [facility] Comment on above: Result Comment: Refe rence Range: Females Non: 2.8-29.2 ng/mL : 9.7-208.5 ng/mL Postmenopausal: 1.8-20.3 ng/mL <2 years: 3.3-14.7 ng/mL 2-5 years: 1.0-12.8 ng/mL 6-10 years: 1.2-11.4 ng/mL 11-17 years: 1.4-14.3 ng/mL Males: 2.1-17.7 ng/mL Performed By: #### P ROL, TSHQR #### [facility] (DEFAULT) [address] [place] [address] TSH W/FT4 REFLEXon 2 Interpretation and review of laboratory results Normal [facility] TSH Qn 1.680 m[IU]/L [facility] TSH 1.680 uIU/mL Normal 0.550-4.780 [facility] Comment on above: Performed By: #### P ROL, TSHQR #### [facility] (DEFAULT) [address] [place], [place] [id number] 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 Result Comment: ? Ne gative for Intraepithelial Lesion or Malignancy ? HPV Results Reported in Attached Report This Pap Test was imaged with the assistance of the [employer] ThinPrep Imaging System and screened by a Stock Sorter. 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 Result Comment: Gyne cologic Cytology Report Case: [id number] Authorizing Provider: Faith Starkey MD Collected: 09/05/2022 03:07 PM Ordering Location: Obstetrics and Gynecology Received: 09/05/2022 04:39 PM [facility]patient [facility] First Screen: Tammy Alberto Rescreen: Monika Tenorio Specimen: Cervical/Endocervical, ThinPrep, Cervical/Endocervical Performed By: #### T HINP #### [facility] (DEFAULT) [address] [place] [address] HPV Reflex? HPV HR with genotyping if NILM, ASCUS, LSIL (30 and older) 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 Result Comment: For Immediate Release [facility] Performed By: #### T HINP #### [facility] (DEFAULT) [address] [address] LMP 08/05/[address] 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 Performed By: #### T HINP #### [facility] (DEFAULT) [address] [address] PAP METHOD ThinPrep Normal [facility] Comment on above: 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 HPV DNA detection performed by Real-Time PCR. The assay detects HPV 16, 18, 31, 33, 35, 39, 45, 51, 52, 56, 58, 59, 66, 68.Testing performed at [facility]. Performed By: #### H PVGCO #### [facility] (DEFAULT) [address] [address] HPV Genotype 18 Negative Normal Negative [facility] Comment on above: Order Comment: Jusitce 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 HPV DNA detection performed by Real-Time PCR. The assay detects HPV 16, 18, 31, 33, 35, 39, 45, 51, 52, 56, 58, 59, 66, 68.Testing performed at [facility]. Performed By: #### H PVGCO #### [facility] (DEFAULT) [address] [place] [address] HPV Other High Risk Types, PCR Negative Normal Negative [facility] Comment on above: 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 HPV DNA detection performed by Real-Time PCR. The assay detects HPV 16, 18, 31, 33, 35, 39, 45, 51, 52, 56, 58, 59, 66, 68.Testing performed at [facility]. Performed By: #### H PVGCO #### [facility] (DEFAULT) [address] [address] COVID-19, MOLECULARon 2020 SARS-CoV-2 (COVID-19) RNA CONCHITA+probe Ql (Unsp spec) Not detected Normal Not Detected [facility] Comment on above: Result Comment: This test was performed under the FDA's Emergency Use Authorization (EUA). Testing was performed using the Xpert?? Xpress SARS-CoV-2/Flu/RSV plus RT-PCR Nanoleaf assay on the [employer] Xpress System. This test has not been approved for use in asymptomatic patients and its performance in this patient population has not been evaluated. Negative results do not rule out the presence of SARS-CoV-2/COVID-19. Fact sheets for this EUA can be found at the following links: For Healthcare Providers: https://www.fda.gov/media/884423/download For Patients: https://www.fda.gov/media/112359/download Performed By: #### L [id number] #### [facility] [address] [address] Xiang Chahal M.D. [id number] CT ABDOMEN PELVIS WITH IV CO NTRAST [...] of significance including no evidence for appendicitis. [employer]D/zakia Workstation ID: [id number] Dictated by: DECLAN MESSER on SatSep 15, 2021 12:10:30 PM EST Transcribed by: CARLOS WEATHERS on SatSep 15, 2021 12:18:43 PM EST Finalized by: DECLAN MESSER on SatSep 15, 2021 2:13:51 PM EST Normal [facility] Comment on above: Order [...] SatSep 15, 2021 3:56:08 PM EST Normal [facility] Comment on above: Order [...] The remaining study is within normal limits. [employer] Workstation ID: [id number] Dictated by: JEANA LIND on SatSep 15, 2021 9:29:20 AM EST Transcribed by: CARLOS WEATHERS on SatSep 15, 2021 9:33:21 AM EST Finalized by: JEANA LIND on SatSep 15, 2021 9:36:51 AM EST Normal [facility] Comment on above: Order Comment: US Ga llbladder Injury/Trauma or Illness?:Illness/Other How long have you had these symptoms (acute/chronic)?:Acute Reason for exam?:RUQ pain History of cancer?:no Surgeries, chemotherapy, or radiation?:no Type of Exam?:Initial Additional signs and symptoms?:none COVID-19, MOLECULARon 2019 INTERNAL CONTROL (ABBOT ID) Pass Normal [facility] SARS-COV-2 (SPEARS ID) Not Detected Normal Not Detecte d [facility] POC COVID-19 Molecularon Internal Control Pass [facility] Interpretation and review of laboratory results Normal [facility] SARS-CoV-2 Not Detected Not Detected [facility] BMPon 07-29-2019 Anion gap [Moles/Vol] 19 mmol/L 10 - 20 mmol/L [facility] Calcium [Mass/Vol] 9.6 mg/dL 8.4 - 10. 2 mg/dL [facility] Chloride [Moles/Vol] 105 mmol/L 98 - 10 8 mmol/L [facility] Creatinine [Mass/Vol] 0.62 mg/dL 0.4 - 1.1 mg/dL [facility] GFR/1.73 sq M predicted among non-blacks MDRD (S/P/Bld) [Vol rate/Area] The eGFR should be used for monitoring renal function only and not for medication dosing. [facility] GFR/1.73 sq M.predicted CKD-EPI (S/P/Bld) [Vol rate/Area] 122 >=60 mL/min/1.73 m2 [facility] Glucose [Mass/Vol] 104 mg/dL High 65 - 99 mg/dL [facility] H[facility]3 [Moles/Vol] 22 mmol/L 21 - 32 mmol/L [facility] Interpretation and review of laboratory results Abnormal [facility] Potassium [Moles/Vol] 4.2 mmol/L 3.5 - 5.1 mmol/L [facility] Sodium [Moles/Vol] 142 mmol/L 135 - 145 mmol/L [facility] Urea nitrogen [Mass/Vol] 11 mg/dL 8 - 25 mg/dL [facility] Urea nitrogen/Creatinine [Mass ratio] 17.7 mg/mg [facility] CBC WITH AUTO DIFFERENTIALon 07-29-2019 Basophils (Bld) [#/Vol] 0.03 10*3/uL [facility] Basophils/100 WBC (Bld) 0.3 % [facility] Eosinophils (Bld) [#/Vol] 0.14 10*3/uL [facility] Eosinophils/100 WBC (Bld) 1.2 % [facility] Erythrocyte distribution width (RBC) [Entitic vol] 13.9 % 11.6 - 14.8 % [facility] Hematocrit (Bld) [Volume fraction] 41.0 % 36 - 46 % [facility] Hemoglobin (Bld) [Mass/Vol] 13.0 g/dL 12 - 16 g/dL [facility] Interpretation and review of laboratory results Abnormal [facility] Lymphocytes (Bld) [#/Vol] 3.19 10*3/uL [facility] Lymphocytes/100 WBC (Bld) 28.0 % [facility] MCH (RBC) [Entitic mass] 26.3 pg 26 - 34 pg [facility] MCHC (RBC) [Mass/Vol] 31.7 g/dL 31 - 37 g/dL [facility] MCV (RBC) [Entitic vol] 82.8 fL 80 - 100 fL [facility] Monocytes (Bld) [#/Vol] 0.45 10*3/uL [facility] Monocytes/100 WBC (Bld) 4.0 % [facility] Neutrophils (Bld) [#/Vol] 7.57 10*3/uL High [facility] Neutrophils/100 WBC (Bld) 66.5 % [facility] Nucleated RBC (Bld) [#/Vol] 0.00 10*3/uL [facility] Nucleated RBC/100 WBC (Bld) [Ratio] 0.0 % [facility] Platelet mean volume (Bld) [Entitic vol] 8.9 fL Low 9 - 15.5 fL [facility] Platelets (Bld) [#/Vol] 353 10*3/uL [facility] RBC (Bld) [#/Vol] 4.95 10*6/uL [facility] WBC (Bld) [#/Vol] 11.38 10*3/uL [facility] Hepatic Function Panel (LFT) on 07-29-2019 Albumin [Mass/Vol] 4.3 g/dL 3.2 - 5.2 g/dL [facility] ALP [Catalytic activity/Vol] 83 U/L 40 - 140 U/L [facility] ALT [Catalytic activity/Vol] 19 U/L 0 - 40 U/L [facility] AST [Catalytic activity/Vol] 16 U/L 0 - 45 U/L [facility] Bilirubin [Mass/Vol] mg/dL 0 - 1.3 mg/dL [facility] Bilirubin.conjugated [Mass/Vol] mg/dL 0 - 0.4 mg/dL [facility] Protein [Mass/Vol] 7.6 g/dL 6 - 8 g/dL [facility] Lipaseon 07-29-2019 Lipase [Catalytic activity/Vol] 30 U/L 15 - 65 U/L [facility] Otheron 07-29-2019 Interpretation and review of laboratory results Normal [facility] Interpretation and review of laboratory results Normal [facility] POC Urinalysis Dipstickon Bilirubin Ql (U) Negative Negative [facility] Glucose Ql (U) Negative Normal, Negative mg/dL [facility] Hemoglobin Ql (U) Negative Negative [facility] Ketones Ql (U) Negative Negative mg/dL [facility] Leukocyte esterase Test strip Ql (U) Negative Negative [facility] Nitrite Ql (U) Negative Negative [facility] pH (U) 5.0 [pH] [facility] Protein Ql (U) Negative Negative mg/dL [facility] Urobilinogen Qn (U) Negative <2.0, 0. 2, Normal, Negative, 1.0, 2.0, <1.0 mg/dL [facility] POC Urine Pregnancyon 2018 HCG ( test) Ql (U) Negative Negative [facility] Internal Control Pass [facility] US ABDOMEN LIMITED STUDYon 1 1. There is a small 4 mm echogenic focus in the nondependent portion of the gallbladder wall which may reflect a small amount of adherent gallbladder sludge or a small benign cholesterol polyp. No further follow-up is required. 2. Otherwise unremarkable right upper quadrant abdominal ultrasound. [employer] Workstation ID: [id number] [facility] EXAMINATION: US ABDOMEN LIMITED STUDY HISTORY: [...] free fluid in the right upper quadrant. [facility] Interface, Rad In Fuji Speechq - 07/29/2019 1:19 [...] quadrant abdominal ultrasound. [employer]PS[employer]ges Workstation ID: [id number] [facility] Urinalysison 07-29-2019 Specific gravity (U) [Rel density] 1.005 [facility] BMPon 03-19-2019 Anion gap [Moles/Vol] 17 mmol/L 10 - 20 mmol/L [facility] Calcium [Mass/Vol] 9.9 mg/dL 8.4 - 10. 2 mg/dL [facility] Chloride [Moles/Vol] 104 mmol/L 98 - 10 8 mmol/L [facility] Creatinine [Mass/Vol] 0.60 mg/dL 0.4 - 1.1 mg/dL [facility] GFR/1.73 sq M predicted among non-blacks MDRD (S/P/Bld) [Vol rate/Area] The eGFR should be used for monitoring renal function only and not for medication dosing. [facility] GFR/1.73 sq M.predicted CKD-EPI (S/P/Bld) [Vol rate/Area] 124 >=60 mL/min/1.73 m2 [facility] Glucose [Mass/Vol] 115 mg/dL High 65 - 99 mg/dL [facility] HCO3 [Moles/Vol] 23 mmol/L 21 - 32 mmol/L [facility] Interpretation and review of laboratory results Abnormal [facility] Potassium [Moles/Vol] 3.9 mmol/L 3.5 - 5.1 mmol/L [facility] Sodium [Moles/Vol] 140 mmol/L 135 - 145 mmol/L [facility] Urea nitrogen [Mass/Vol] 9 mg/dL 8 - 25 mg/dL [facility] Urea nitrogen/Creatinine [Mass ratio] 15.0 mg/mg [facility] CBC WITH AUTO DIFFERENTIALon 03-19-2019 Basophils (Bld) [#/Vol] 0.04 10*3/uL [facility] Basophils/100 WBC (Bld) 0.2 % [facility] Eosinophils (Bld) [#/Vol] 0.35 10*3/uL [facility] Eosinophils/100 WBC (Bld) 2.1 % [facility] Erythrocyte distribution width (RBC) [Entitic vol] 14.0 % 11.6 - 14.8 % [facility] Hematocrit (Bld) [Volume fraction] 41.7 % 36 - 46 % [facility] Hemoglobin (Bld) [Mass/Vol] 13.4 g/dL 12 - 16 g/dL [facility] Interpretation and review of laboratory results Abnormal [facility] Lymphocytes (Bld) [#/Vol] 5.33 10*3/uL High [facility] Lymphocytes/100 WBC (Bld) 31.6 % [facility] MCH (RBC) [Entitic mass] 26.2 pg 26 - 34 pg [facility] MCHC (RBC) [Mass/Vol] 32.1 g/dL 31 - 37 g/dL [facility] MCV (RBC) [Entitic vol] 81.4 fL 80 - 100 fL [facility] Monocytes (Bld) [#/Vol] 0.93 10*3/uL [facility] Monocytes/100 WBC (Bld) 5.5 % [facility] Neutrophils (Bld) [#/Vol] 10.22 10*3/uL [facility] Neutrophils/100 WBC (Bld) 60.6 % [facility] Nucleated RBC (Bld) [#/Vol] 0.00 10*3/uL [facility] Nucleated RBC/100 WBC (Bld) [Ratio] 0.0 % [facility] Platelet mean volume (Bld) [Entitic vol] 8.7 fL Low 9 - 15.5 fL [facility] Platelets (Bld) [#/Vol] 418 10*3/uL High [facility] RBC (Bld) [#/Vol] 5.12 10*6/uL [facility] WBC (Bld) [#/Vol] 16.87 10*3/uL [facility] D-DIMER, QUANTITATIVEon 03-01 Fibrin D-dimer FEU (PPP) [Mass/Vol] 0.42 0.27 - 0.49 mcg/mL FEU [facility] Interpretation and review of laboratory results Normal [facility] A D-dimer concentration of <0.5 micrograms per milliliter FEU is considered a low probability for pulmonary embolus (PE) and deep venous thrombosis (DVT). Results of this test should always be interpreted in conjunction with the patient's medical history,clinical presentation, and other findings. Clinical diagnosis should not be based on the results of the D-dimer alone. [facility] Hepatic Function Panel (LFT) on 03-19-2019 Albumin [Mass/Vol] 4.4 g/dL 3.2 - 5.2 g/dL [facility] ALP [Catalytic activity/Vol] 109 U/L 40 - 140 U/L [facility] ALT [Catalytic activity/Vol] 17 U/L 0 - 40 U/L [facility] AST [Catalytic activity/Vol] 16 U/L 0 - 45 U/L [facility] Bilirubin [Mass/Vol] mg/dL 0 - 1.3 mg/dL [facility] Bilirubin.conjugated [Mass/Vol] mg/dL 0 - 0.4 mg/dL [facility] Protein [Mass/Vol] 8.0 g/dL 6 - 8 g/dL [facility] Lipaseon 03-19-2019 Lipase [Catalytic activity/Vol] 39 U/L 15 - 65 U/L [facility] Otheron 03-19-2019 Extra Tube Hold for add-ons. [facility] Comment on above: Auto resulted. Interpretation and review of laboratory results Normal [facility] POC Urine Pregnancyon 2018 HCG ( test) Ql (U) Negative Negative [facility] Internal Control Pass [facility] Interpretation and review of laboratory results Normal [facility] Specific gravity (U) [Rel density] 1.005 [facility] TROPONINon 03-19-2019 Troponin T.cardiac [Mass/Vol] ug/L <=14 ng/L [facility] Troponin T.cardiac [Mass/Vol] No biomarker evidence of cardiac injury. [facility] Troponin T.cardiac [Mass/Vol] ug/L <=14 ng/L [facility] Troponin T.cardiac [Mass/Vol] Normal [facility] XR CHEST AP/PA AND LATon Mild perihilar and lingular/bibasilar atelectatic change with no other acute process. ASC/[facility] Workstation ID: [id number] [facility] Interface, Rad In [facility] Speechq - 03/19/2019 6:01 AM EDT EXAMINATION: XR [...] other acute process. ASC/vrs Workstation ID: [id number] [facility] EXAMINATION: XR CHEST AP/PA AND LAT [...] unremarkable. There is no acute osseous abnormality. [facility] ECG 12-LEADon 03-18-2019 Laurent Duque MD 03/19/2019 3:41 AM EKG 12-lead Date/Time: 03/18/2019 11:49 PM Performed by: Laurent Duque MD Authorized by: Laurent Duque MD Interpreted by ED attending physician Comparison: not compared with previous ECG BPM: 103 Comments: Rate 103, sinus tachycardia, normal QRS interval, normal axis, no acute ST elevation, interpreted by [facility] Vital Signs Date Time Vital Sign Value Performing Clinician Facility 05-06-2025 14:10-0400 Body height 157.[address] Steffen Eisenberg MD Work Phone: [facility] 05-06-2025 14:09-0400 Body mass index (BMI) [Ratio] 49.6 kg/m2 Dr. Steffen Eisenberg MD Work Phone: [facility] 05-06-2025 14:09-0400 Body weight [address] Steffen Eisenberg MD Work Phone: [facility] 05-06-2025 14:09-0400 Diastolic blood pressure 84 mm[Hg] Dr. Steffen Eisenberg MD Work Phone: [facility] 05-06-2025 14:09-0400 Systolic blood pressure 125 mm[Hg] Dr. Steffen Eisenberg MD Work Phone: [facility] 04-28-2025 14:05-0400 Body height 157.[address] Steffen Eisenberg MD Work Phone: [facility] 04-28-2025 14:03-0400 Body mass index (BMI) [Ratio] 48.5 kg/m2 Dr. Steffen Eisenberg MD Work Phone: [facility] 04-28-2025 14:03-0400 Body weight 120.[address] Steffen Eisenberg MD Work Phone: [facility] 04-28-2025 14:03-0400 Diastolic blood pressure 86 mm[Hg] Dr. Steffen Eisenberg MD Work Phone: [facility] 04-28-2025 14:03-0400 Systolic blood pressure 123 mm[Hg] Dr. Steffen Eisenberg MD Work Phone: [facility] 04-20-2025 14:13-0400 Body height 157.[address] Steffen Eisenberg MD Work Phone: [facility] 04-20-2025 14:13-0400 Body mass index (BMI) [Ratio] 49 kg/m2 Dr. Steffen Eisenberg MD Work Phone: [facility] 04-20-2025 14:13-0400 Body weight 121.[address] Steffen Eisenberg MD Work Phone: [facility] 04-20-2025 14:13-0400 Diastolic blood pressure 81 mm[Hg] Dr. Steffen Eisenberg MD Work Phone: [facility] 04-20-2025 14:13-0400 Systolic blood pressure 116 mm[Hg] Dr. Steffen Eisenberg MD Work Phone: [facility] 04-19-2025 10:29-0400 Heart rate 115 /min Dr. Steffen Eisenberg MD Work Phone: [facility] 04-19-2025 10:29-0400 SaO2% (BldA) [Mass fraction] 96 % Dr. Steffen Eisenberg MD Work Phone: [facility] 04-19-2025 10:03-0400 Body height 157.[address] Steffen Eisenberg MD Work Phone: [facility] 04-19-2025 10:03-0400 Body mass index (BMI) [Ratio] 49.2 kg/m2 Dr. Steffen Eisenberg MD Work Phone: [facility] 04-19-2025 10:03-0400 Body weight 122.[address] Steffen Eisenberg MD Work Phone: [facility] 04-19-2025 09:57-0400 Body temperature 98.4 [degF] Dr. Steffen Eiesnberg MD Work Phone: [facility] 04-19-2025 09:57-0400 Respiratory rate 20 /min Dr. Steffen Eisenberg MD Work Phone: [facility] 04-19-2025 09:56-0400 Diastolic blood pressure 80 mm[Hg] Dr. Steffen Eisenberg MD Work Phone: [facility] 04-19-2025 09:56-0400 Systolic blood pressure 132 mm[Hg] Dr. Steffen Eisenberg MD Work Phone: [facility] 04-07-2025 10:00-0400 Body height 157.[address] Steffen Eisenberg MD Work Phone: [facility] 04-07-2025 10:00-0400 Body mass index (BMI) [Ratio] 49 kg/m2 Dr. Steffen Eisenberg MD Work Phone: [facility] 04-07-2025 10:00-0400 Body weight 121.[address] Steffen Eisenberg MD Work Phone: [facility] 04-07-2025 10:00-0400 Diastolic blood pressure 80 mm[Hg] Dr. Steffen Eisenberg MD Work Phone: [facility] 04-07-2025 10:00-0400 Systolic blood pressure 119 mm[Hg] Dr. Steffen Eisenberg MD Work Phone: [facility] 03-26-2025 14:17-0400 Body height 157.[address] Steffen Eisenberg MD Work Phone: [facility] 03-26-2025 14:15-0400 Body mass index (BMI) [Ratio] 48.9 kg/m2 Dr. Steffen Eisenberg MD Work Phone: [facility] 03-26-2025 14:15-0400 Body weight 121.[address] Steffen Eisenberg MD Work Phone: [facility] 03-26-2025 14:15-0400 Diastolic blood pressure 82 mm[Hg] Dr. Steffen Eisenberg MD Work Phone: [facility] 03-26-2025 14:15-0400 Systolic blood pressure 131 mm[Hg] Dr. Steffen Eisenberg MD Work Phone: [facility] 03-10-2025 14:28-0400 Body height 157.[address] Steffen Eisenberg MD Work Phone: [facility] 03-10-2025 14:24-0400 Body mass index (BMI) [Ratio] 48.5 kg/m2 Dr. Steffen Eisenberg MD Work Phone: [facility] 03-10-2025 14:24-0400 Body weight 120.[address] Steffen Eisenberg MD Work Phone: [facility] 03-10-2025 14:24-0400 Diastolic blood pressure 76 mm[Hg] Dr. Steffen Eisenberg MD Work Phone: [facility] 03-10-2025 14:24-0400 Systolic blood pressure 110 mm[Hg] Dr. Steffen Eisenberg MD Work Phone: [facility] 02-26-2025 08:45-0400 Body height 157.[address] Steffen Eisenberg MD Work Phone: [facility] 02-26-2025 08:45-0400 Body mass index (BMI) [Ratio] 48.3 kg/m2 Dr. Steffen Eisenberg MD Work Phone: [facility] 02-26-2025 08:45-0400 Body weight 119.[address] Steffen Eisenberg MD Work Phone: [facility] 02-26-2025 08:45-0400 Diastolic blood pressure 66 mm[Hg] Dr. Steffen Eisenberg MD Work Phone: [facility] 02-26-2025 08:45-0400 Systolic blood pressure 102 mm[Hg] Dr. Steffen Eisenberg MD Work Phone: [facility] 01-29-2025 10:30-0400 Body mass index (BMI) [Ratio] 47.7 kg/m2 Dr. Steffen Eisenberg MD Work Phone: [facility] 01-29-2025 10:30-0400 Body weight 118.[address] Steffen Eisenberg MD Work Phone: [facility] 01-29-2025 10:30-0400 Diastolic blood pressure 81 mm[Hg] Dr. Steffen Eisenberg MD Work Phone: [facility] 01-29-2025 10:30-0400 Systolic blood pressure 114 mm[Hg] Dr. Steffen Eisenberg MD Work Phone: [facility] 01-01-2025 10:10-0400 Body mass index (BMI) [Ratio] 47.9 kg/m2 Dr. Steffen Eisenberg MD Work Phone: [facility] 01-01-2025 10:10-0400 Body weight 118.[address] Steffen Eisenberg MD Work Phone: [facility] 01-01-2025 10:10-0400 Diastolic blood pressure 82 mm[Hg] Dr. Steffen Eisenberg MD Work Phone: [facility] 01-01-2025 10:10-0400 Systolic blood pressure 125 mm[Hg] Dr. Steffen Eisenberg MD Work Phone: [facility] 12-03-2024 13:32-0500 Body mass index (BMI) [Ratio] 47.9 kg/m2 Dr. Steffen Eisenberg MD Work Phone: [facility] 12-03-2024 13:32-0500 Body weight 119.[address] Steffen Eisenberg MD Work Phone: [facility] 12-03-2024 13:32-0500 Diastolic blood pressure 82 mm[Hg] Dr. Steffen Eisenberg MD Work Phone: [facility] 12-03-2024 13:32-0500 Systolic blood pressure 120 mm[Hg] Dr. Steffen Eisenberg MD Work Phone: [facility] 11-10-2024 22:23-0500 Body temperature 98.2 [degF] Dr. Steffen Eisenberg MD Work Phone: [facility] 11-10-2024 22:23-0500 Diastolic blood pressure 97 mm[Hg] Dr. Steffen Eisenberg MD Work Phone: [facility] 11-10-2024 22:23-0500 Heart rate 115 /min Dr. Steffen Eisenberg MD Work Phone: [facility] 11-10-2024 22:23-0500 Respiratory rate 18 /min Dr. Steffen Eisenberg MD Work Phone: [facility] 11-10-2024 22:23-0500 SaO2% (BldA) [Mass fraction] 99 % Dr. Steffen Eisenberg MD Work Phone: [facility] 11-10-2024 22:23-0500 Systolic blood pressure 139 mm[Hg] Dr. Steffen Eisenberg MD Work Phone: [facility] 11-10-2024 18:31-0500 Body mass index (BMI) [Ratio] 47.4 kg/m2 Dr. Steffen Eisenberg MD Work Phone: [facility] 11-10-2024 18:31-0500 Body weight 117.[address] Steffen Eisenberg MD Work Phone: [facility] 11-05-2024 14:27-0500 Body mass index (BMI) [Ratio] 47.5 kg/m2 Dr. Steffen Eisenberg MD Work Phone: [facility] 11-05-2024 14:27-0500 Body weight 117.[address] Steffen Eisenberg MD Work Phone: [facility] 11-05-2024 14:27-0500 Diastolic blood pressure 89 mm[Hg] Dr. Steffen Eisenberg MD Work Phone: [facility] 11-05-2024 14:27-0500 Systolic blood pressure 125 mm[Hg] Dr. Steffen Eisenberg MD Work Phone: [facility] 01-12-2024 11:02-0400 Body temperature 97.9 [degF] Gina Sahu APRN.[employer] Work Phone: [facility] 01-12-2024 11:02-0400 Body weight 120.3 kg Gina Sahu APRN.[employer] Work Phone: [facility] 01-12-2024 11:02-0400 Diastolic blood pressure 78 mm[Hg] Gina Sahu APRN.[employer] Work Phone: [facility] 01-12-2024 11:02-0400 Heart rate 134 /min Gina Sahu APRN.[employer] Work Phone: [facility] 01-12-2024 11:02-0400 Respiratory rate 20 /min Gina Sahu APRN.[employer] Work Phone: [facility] 01-12-2024 11:02-0400 SaO2% (BldA) [Mass fraction] 100 % Gina Sahu APRN.[employer] Work Phone: [facility] 01-12-2024 11:02-0400 Systolic blood pressure 118 mm[Hg] Gina Sahu APRN.CNP Work Phone: [facility] 11-04-2023 11:53-0500 Body height 157.48 cm [facility] 11-04-2023 11:53-0500 Body mass index (BMI) [Ratio] 48.1 kg/m2 MARTA [facility] 11-04-2023 11:53-0500 Body weight 119.4 kg MARTA [facility] 11-04-2023 11:53-0500 Diastolic blood pressure 89 mm[Hg] [facility] 11-04-2023 11:53-0500 Systolic blood pressure 125 mm[Hg] [facility] 09-27-2022 09:42-0500 Body height 158.1 cm Marta Del Valle MD Work Phone: [facility] 09-27-2022 09:42-0500 Body mass index (BMI) [Ratio] 42.84 kg/m2 Marta Del Valle MD Work Phone: [facility] 09-27-2022 09:42-0500 Body weight 107.11 kg Marta Del Valle MD Work Phone: [facility] 09-27-2022 09:42-0500 Diastolic blood pressure 72 mm[Hg] Marta Del Valle MD Work Phone: [facility] 09-27-2022 09:42-0500 Heart rate 113 /min Marta Del Valle MD Work Phone: [facility] 09-27-2022 09:42-0500 SaO2% (BldA) [Mass fraction] 99 % Marta Del Valle MD Work Phone: [facility] 09-27-2022 09:42-0500 Systolic blood pressure 114 mm[Hg] Marta Del Valle MD Work Phone: [facility] 09-05-2022 13:25-0500 Body height 157.5 cm Faith Starkey MD Work Phone: [facility] 09-05-2022 13:25-0500 Body mass index (BMI) [Ratio] 42.43 kg/m2 Faith Starkey MD Work Phone: [facility] 09-05-2022 13:25-0500 Body weight 105.23 kg Faith Starkey MD Work Phone: [facility] 09-05-2022 13:25-0500 Diastolic blood pressure 70 mm[Hg] Faith Starkey MD Work Phone: [facility] 09-05-2022 13:25-0500 Systolic blood pressure 124 mm[Hg] Faith Starkey MD Work Phone: [facility] 05-17-2021 13:53-0400 Body height 157.5 cm Faith Starkey MD Work Phone: [facility] 05-17-2021 13:53-0400 Body mass index (BMI) [Ratio] 44.45 kg/m2 Faith Starkey MD Work Phone: [facility] 05-17-2021 13:53-0400 Body weight 110.22 kg Faith Starkey MD Work Phone: [facility] 05-17-2021 13:53-0400 Diastolic blood pressure 78 mm[Hg] Faith Starkey MD Work Phone: [facility] 05-17-2021 13:53-0400 Systolic blood pressure 118 mm[Hg] Faith Starkey MD Work Phone: [facility] 07-27-2020 10:34-0400 BP Diastolic 88 mm[Hg] Marli Thompson [facility] 07-27-2020 10:34-0400 BP Systolic 132 mm[Hg] Marli Thompson [facility] 07-27-2020 10:32-0400 BMI (Body Mass Index) 41.5 kg/m2 Marli Thompson [facility] 07-27-2020 10:32-0400 Body Temperature 99.19 [degF] Marli Thompson [facility] 07-27-2020 10:32-0400 Body weight 102.92 kg Marli Thompson [facility] 07-27-2020 10:32-0400 Pulse (Heart Rate) 108 /min Marli Thompson [facility] 07-27-2020 10:32-0400 Pulse Oximetry 98 % Marli Thompson [facility] 07-27-2020 10:32-0400 Respiratory Rate 16 /min Marli Thompson [facility] 08-19-2019 10:49-0500 BMI (Body Mass Index) 38.89 kg/m2 Janes [facility] 08-19-2019 10:49-0500 Body Temperature 98.2 [degF] Janes [facility] 08-19-2019 10:49-0500 Body weight 96.44 kg Janes [facility] 08-19-2019 10:49-0500 BP Diastolic 84 mm[Hg] [facility] 08-19-2019 10:49-0500 BP Systolic 135 mm[Hg] [facility] 08-19-2019 10:49-0500 Height 157.5 cm [facility] 08-19-2019 10:49-0500 Pulse (Heart Rate) 106 /min [facility] 07-29-2019 13:20-0400 Pulse (Heart Rate) 86 /min [facility] 07-29-2019 13:20-0400 Pulse Oximetry 98 % [facility] 07-29-2019 10:27-0400 BMI (Body Mass Index) 39.32 kg/m2 [facility] 07-29-2019 10:27-0400 Body Temperature 97.81 [degF] [facility] 07-29-2019 10:27-0400 Body weight 97.[address] [facility] 07-29-2019 10:27-0400 BP Diastolic 77 mm[Hg] [facility] 07-29-2019 10:27-0400 BP Systolic 126 mm[Hg] Robert Peterson [facility] 07-29-2019 10:27-0400 Height 157.5 cm Robert Peterson [facility] 07-29-2019 10:27-0400 Respiratory Rate 18 /min Robert Peterson [facility] 03-18-2019 23:29-0400 Body Temperature 98.91 [degF] Laurent [facility] 03-18-2019 23:29-0400 BP Diastolic 89 mm[Hg] Laurent [facility] 03-18-2019 23:29-0400 BP Systolic 149 mm[Hg] Laurent [facility] 03-18-2019 23:29-0400 Pulse (Heart Rate) 105 /min Laurent [facility] 03-18-2019 23:29-0400 Pulse Oximetry 100 % Laurent [facility] 03-18-2019 23:29-0400 Respiratory Rate 16 /min [facility] 03-18-2019 23:27-0400 BMI (Body Mass Index) 43.46 kg/m2 Laurent [facility] 03-18-2019 23:27-0400 Body weight 104.33 kg Laurent [facility] 03-18-2019 23:27-0400 Height 154.9 cm Laurent [facility] 02-18-2019 10:46-0400 BMI (Body Mass Index) 42.54 kg/m2 Janes Gutiérrez [facility] 02-18-2019 10:46-0400 Body Temperature 98.4 [degF] Janes Gutiérrez [facility] 02-18-2019 10:46-0400 Body weight 105.51 kg Janes Gutiérrez [facility] 02-18-2019 10:46-0400 BP Diastolic 96 mm[Hg] Janes Gutiérrez [facility] 02-18-2019 10:46-0400 BP Systolic 143 mm[Hg] Janes Gutiérrez [facility] 02-18-2019 10:46-0400 Height 157.5 cm Janes Gutiérrez [facility] 02-18-2019 10:46-0400 Pulse (Heart Rate) 109 /min Janes Gutiérrez [facility] 08-20-2018 08:52-0500 BMI (Body Mass Index) 41.77 kg/m2 Janes Gutiérrez [facility] 08-20-2018 08:52-0500 Body Temperature 98.1 [degF] Janes Gutiérrez [facility] 08-20-2018 08:52-0500 BP Diastolic 86 mm[Hg] Janes Gutiérrez [facility] 08-20-2018 08:52-0500 BP Systolic 120 mm[Hg] Janes Gutiérrez [facility] 08-20-2018 08:52-0500 Height 157.5 cm Janes Gutiérrez [facility] 08-20-2018 08:52-0500 Pulse (Heart Rate) 118 /min Janes Gutiérrez [facility] 08-20-2018 08:52-0500 Weight 103.6 kg Janes Gutiérrez [facility] Encounters Encounter Date Encounter Type Care Provider Facility Start: 05-10-2025 End: 05-10-2025 ambulatory EDEL Beck [facility] Start: 05-06-2025 End: 05-06-[address] Edel Bullock DO -[facility] Work Phone: Start: 05-06-2025 End: 05-06-[address] Steffen Eisenberg MD Work Phone: -[facility] Start: 05-06-2025 End: 05-06-2025 ambulatory EDEL R [facility] Start: 05-03-2025 End: 05-03-2025 ambulatory SAAD MIRNA [facility] Start: 04-29-2025 End: 04-29-2025 ambulatory [facility] Kiran [facility] Start: 04-28-2025 End: 04-28-[address] Steffen Eisenberg MD Work Phone: -[facility] Start: 04-28-2025 End: 04-28-[address] Edel Bullock DO -[facility] Work Phone: Start: 04-28-2025 End: 04-28-[address] Edel Bullock DO -[facility] Work Phone: Start: 04-28-2025 End: 04-28-[address] Steffen Eisenberg MD Work Phone: [facility] Start: 04-28-2025 End: 04-28-2025 ambulatory Edel Bullock Facility:[facility] Start: 04-26-2025 End: 04-26-2025 ambulatory EDEL ROCK [facility] Start: 04-22-2025 End: 04-22-[address] Steffen Eisenberg MD Work Phone: [facility] Start: 04-22-2025 End: 04-22-[address] Edel Bullock DO -[facility] Work Phone: Start: 04-22-2025 End: 04-22-2025 ambulatory Edel Bullock Facility:[facility] Start: 04-20-2025 End: 04-20-[address] Apple Lao MD -[facility] Work Phone: Start: 04-20-2025 End: 04-20-[address] Steffen Eisenberg MD Work Phone: -[facility] Start: 04-19-2025 ambulatory Kiley Jain Facility :[facility] Start: 04-19-2025 Non-patient / Non-visit Kiley Whaley CNM -[facility] Start: 04-19-2025 End: 04-19-2025 Patient encounter procedure Kiley Jain CN -[facility] Work Phone: Start: 04-19-2025 End: 04-19-[address] Steffen Eisenberg MD Work Phone: -[facility] Start: 04-15-2025 End: 04-15-[address] Steffen Eisenberg MD Work Phone: -Ultrasound [facility] Start: 04-15-2025 End: 04-15-[address] Edel Bullock DO -Ultrasound [facility] Work Phone: Start: 04-15-2025 End: 04-15-2025 ambulatory Edel Bullock Facility:[facility] Start: 04-12-2025 End: 04-12-2025 ambulatory NO PRIMARY CARE [facility] Start: 04-08-2025 End: 04-08-2025 ambulatory NO PRIMARY CARE [facility] Start: 04-07-2025 End: 04-07-[address] Steffen Eisenberg MD Work Phone: [facility] Start: 04-07-2025 End: 04-07-[address] Edel Bullock DO [facility] Start: 04-07-2025 End: 04-07-[address] Edel Bullock DO [facility] Work Phone: Start: 04-07-2025 End: 04-07-[address] Steffen Eisenberg MD Work Phone: [facility] Start: 04-07-2025 End: 04-07-2025 ambulatory Edel Bullock Facility:[facility] Start: 03-26-2025 End: 03-26-[address] Edel Bullock DO [facility] Work Phone: Start: 03-26-2025 End: 03-26-[address] Steffen Eisenberg MD Work Phone: [facility] Start: 03-10-2025 End: 03-10-[address] Steffen Eisenberg MD Work Phone: [facility] Work Phone: Start: 03-10-2025 End: 03-10-[address] Edel Bullock DO [facility] Work Phone: Start: 03-10-2025 End: 03-10-[address] Edel Bullock DO [facility] Work Phone: Start: 03-10-2025 End: 03-10-[address] Steffen Eisenberg MD Work Phone: [facility] Work Phone: Start: 03-10-2025 End: 03-10-2025 ambulatory Steffen Eisenberg Facility:[facility] Start: 03-05-2025 End: 03-05-[address] Steffen Eisenberg MD Work Phone: [facility] Work Phone: Start: 03-05-2025 End: 03-05-2025 Patient encounter procedure Kiley SEGURAM -Laboratory Work Phone: Start: 03-05-2025 End: 03-05-2025 ambulatory Steffen Traorelay Facility:[facility] Start: 02-26-2025 End: 02-26-[address] Apple Lao MD -[facility] Work Phone: Start: 02-26-2025 End: 02-26-[address] Steffen Eisenberg MD Work Phone: [facility] Work Phone: Start: 02-26-2025 End: 02-26-2025 ambulatory Steffen Eisenberg Facility:[facility] Start: 02-23-2025 End: 02-23-2025 ambulatory OSMANI Stallings [facility] Start: 01-29-2025 End: 01-29-[address] Edel Bullock DO -[facility] Work Phone: Start: 01-29-2025 End: 01-29-2025 ambulatory Steffen Eisenberg Facility:[facility] Start: 01-28-2025 End: 01-28-2025 ambulatory OSMANI [facility] Start: 01-01-2025 End: 01-01-[address] Apple Lao MD -[facility] Work Phone: Start: 01-01-2025 End: 01-01-2025 ambulatory Steffen Faina Facility:[facility] Start: 12-28-2024 End: 12-28-2024 ambulatory MD [facility] Start: 12-03-2024 End: 12-03-[address] Edel Bullock DO -[facility] Work Phone: Start: 12-03-2024 End: 12-03-2024 ambulatory Steffen [place] Facility:[facility] Start: 11-10-2024 End: 11-10-2024 Emergency department patient visit Dr. Ld Fermin MD -Emergency Department Work Phone: Start: 11-05-2024 Encounter for genera l adult medical examination without abnormal findings Steffen [place] Start: 11-05-2024 End: 11-05-[address] Edel Bullock DO -[facility] Work Phone: Start: 11-05-2024 End: 11-05-2024 ambulatory Steffen Fairmount [facility] Start: 11-03-2024 End: 11-03-2024 ambulatory Facility:[facility] Start: 11-03-2024 End: 11-03-2024 Telemedicine consultation with patient Demarcus HOLDERTayo Work Phone: Telemedicine Comment on above: Viral URI with cough (Primary Dx) Start: 11-03-2024 End: 11-04-2024 ambulatory Steffen [facility]mount [facility] Start: 10-23-2024 End: 10-23-2024 ambulatory Steffen Fairmount Facility:[facility] Start: 10-15-2024 End: 10-15-2024 ambulatory Steffen Faina Facility:[facility] Start: 10-09-2024 End: 10-09-2024 ambulatory Steffen Fairmount [facility] Start: 10-09-2024 End: 10-09-2024 ambulatory Kiley Jain Facility:[facility] Start: 10-02-2024 ambulatory Aida Shields Facility :[facility] Start: 10-02-2024 End: 10-02-2024 Subsequent hospital visit by physician Tucker Ultrasound 2 [facility] Comment on above: Encounter for pregna ncy test, result positive (HHS-HCC) Start: 10-02-2024 End: 10-02-2024 ambulatory [facility] Start: 09-25-2024 End: 09-25-2024 Subsequent hospital visit by physician Tucker Jimenez 2 [facility] Comment on above: Encounter for pregna ncy test, result positive ([facility]) Start: 09-25-2024 End: 09-25-2024 ambulatory [facility] Start: 09-15-2024 End: 09-15-2024 ambulatory [facility] Start: 09-11-2024 End: 09-11-2024 ambulatory [facility] Start: 09-09-2024 End: 09-09-2024 ambulatory [facility] Start: 09-04-2024 End: 09-04-2024 ambulatory [facility] Start: 08-25-2024 End: 08-25-2024 ambulatory [facility] Start: 08-21-2024 End: 08-21-2024 Subsequent hospital visit by physician Tucker Jimenez 1 [facility] Comment on above: Encounter for assist ed reproductive fertility procedure cycle Start: 08-21-2024 End: 08-21-2024 ambulatory [facility] Start: 08-14-2024 End: 08-14-2024 Subsequent hospital visit by physician Tucker Jimenez 2 [facility] Comment on above: Encounter for assist ed reproductive fertility procedure cycle Start: 08-14-2024 End: 08-14-2024 ambulatory [facility] Start: 08-04-2024 End: 08-04-2024 ambulatory No Primary Care Physician Facility:[facility] Start: 07-29-2024 End: 07-29-2024 Refill Marta Del Valle MD Work Phone: [facility] [place] Start: 07-20-2024 End: 07-20-2024 ambulatory No Primary Care Physician Facility[facility] Start: 06-24-2024 End: 06-24-2024 Subsequent hospital visit by physician Tucker Jimenez 2 [facility] Comment on above: Encounter for assist ed reproductive fertility procedure cycle Start: 06-24-2024 End: 06-24-2024 ambulatory [facility] Start: 06-22-2024 End: 06-22-2024 Subsequent hospital visit by physician Tucker Ultrasound 2 [facility] Comment on above: Encounter for assist ed reproductive fertility procedure cycle Start: 06-22-2024 End: 06-22-2024 ambulatory [facility] Start: 06-19-2024 End: 06-19-2024 Subsequent hospital visit by physician Tucker Ultrasound 2 [facility] Comment on above: Encounter for assist ed reproductive fertility procedure cycle Start: 06-19-2024 End: 06-19-2024 ambulatory [facility] Start: 06-15-2024 End: 06-15-2024 Subsequent hospital visit by physician Tucker Ultrasound 2 [facility] Comment on above: Encounter for assist ed reproductive fertility procedure cycle Start: 06-15-2024 End: 06-15-2024 ambulatory [facility] Start: 05-27-2024 End: 05-27-2024 ambulatory No Primary Care Physician Facility:[facility] Start: 01-12-2024 End: 01-12-2024 ambulatory Facility:[facility] Start: 01-12-2024 End: 01-12-2024 Patient encounter procedure Gina Sahu APRN.CNP Work Phone: [facility] Comment on above: URI, acute (Primary Dx); Acute otitis media, right; Acute cough Start: 12-09-2023 Non-patient / Non-visit MARTA PRICE [facility] Start: 12-09-2023 End: 12-09-2023 [facility] Start: 12-09-2023 End: 12-09-2023 Patient encounter procedure MARTA JOSH [facility]-Radiology, [facility] Work Phone: Start: 11-04-2023 End: 11-04-2023 Patient encounter procedure MARTA DEL VALLE [facility] Work Phone: Start: 05-01-2023 Patient encounter status Marta Del Valle MD Work Phone: [facility] Start: 05-01-2023 ambulatory MARTA DEL VALLE Facili ty:[facility] Start: 04-03-2023 ambulatory MARTA DEL VALLE Facili ty:[facility] Start: 01-09-2023 ambulatory MARTA DEL VALLE Facili ty:[facility] Start: 01-09-2023 End: 01-09-2023 Subsequent hospital visit by physician Lawrence Young MD Work Phone: Mammography [facility]patient [facility] Comment on above: Arrived Start: 12-19-2022 ambulatory SELF SELF Facility:[facility] Start: 09-27-2022 ambulatory SELF SELF Facility:[facility] Start: 09-27-2022 Encounter for genera l adult medical examination without abnormal findings MARTA DEL VALLE Facility:[facility] Start: 09-27-2022 End: 09-27-2022 Patient encounter status Marta Del Valle MD Work Phone: Primary Care Outpatient [facility] Start: 09-27-2022 End: 09-27-2022 Periodic preventive med est patient 18-39 yrs Marta Del Valle MD Work Phone: Primary Care Outpatient [facility] Comment on above: Well adult exam (Cristy hector Dx); Prolonged ; Need for influenza vaccination; MELINA (generalized anxiety disorder); Gastroesophageal reflux disease without esophagitis; Recurrent major depressive disorder, in full remission Start: 09-05-2022 ambulatory SELF SELF Facility:[facility] Start: 09-05-2022 Encounter for gynecological examination (general) (routine) without abnormal findings FAITH STARKEY Facility:[facility] Start: 09-05-2022 End: 09-05-2022 Patient encounter procedure Faith Starkey MD Work Phone: [facility] [place] Start: 09-05-2022 End: 09-05-2022 Periodic preventive med est patient 18-39 yrs Faith Starkey MD Work Phone: [facility] [place] Comment on above: Well woman exam with routine gynecological exam (Primary Dx) Start: 08-10-2022 ambulatory MARTA DEL VALLE [facility] ty:[facility] Start: 10-03-2021 End: 10-07-2021 ambulatory [facility] Start: 09-27-2021 Patient encounter status Radha Starkey MD Work Phone: [facility] Start: 09-15-2021 End: 09-16-2021 ambulatory [facility] Start: 05-17-2021 End: 05-17-2021 Subsequent care visit Faith Starkey MD Work Phone: [facility]st[facility] [place] Comment on above: Supervision of mirna nair first , antepartum (Primary Dx) Start: 08-23-2020 End: 08-23-2020 Patient encounter procedure WILL PRABHAKAR [facility] Start: 08-23-2020 End: 08-23-2020 Office outpatient new 30 minutes Will Prabhakar Work Phone: [facility] Dermatology Comment on above: Acne vulgaris (Prima ry Dx); Dermal nevus of abdominal wall Start: 07-27-2020 End: 07-27-2020 Patient encounter procedure MARTA DEL VALLE [facility] Urgent [facility] Start: 07-27-2020 End: 07-27-2020 Office outpatient new 30 minutes Marli Thompson Work Phone: [facility] Urgent [facility] Comment on above: Close Exposure to Co vid-19 Virus (Primary Dx); Generalized body aches; Diarrhea, unspecified type Start: 08-19-2019 End: 08-19-2019 Office outpatient visit 15 minutes [facility] Work Phone: [facility] Comment on above: Leukocytosis, unspec ified type (Primary Dx) Start: 07-29-2019 End: 07-29-2019 Emergency department patient visit Robert Peterson Work Phone: [facility] Emergency Department Comment on above: Epigastric pain (Cristy hector Dx) Start: 05-09-2019 End: 05-09-2019 Refill Marta Del Valle Work Phone: [facility] General Internal Medicine [facility] Start: 03-19-2019 Follow-up encounter Marta queen Work Phone: [facility] General Internal Medicine [facility] Comment on above: RE: Follow up from E R Visit Start: 03-19-2019 End: 03-19-2019 Patient encounter procedure Marta Del Valle Work Phone: [facility] Start: 03-18-2019 End: 03-19-2019 Emergency department patient visit Laurent Duque Work Phone: [facility] Emergency Department Comment on above: Abdominal pain, unsp ecified abdominal location (Primary Dx); Chest pain, unspecified type; Leukocytosis, unspecified type Start: 03-18-2019 End: 03-18-2019 Patient encounter procedure Marta Del Valle Work Phone: [facility] Start: 02-18-2019 End: 01-22-2020 Office outpatient visit 15 minutes [facility] Work Phone: [facility] Comment on above: Leukocytosis, unspec ified type (Primary Dx) Start: 08-20-2018 End: 08-20-2018 Office outpatient visit 15 minutes Betabrand Li Work Phone: [facility] Comment on above: Leukocytosis, unspec ified type (Primary Dx) Start: 12-09-2013 End: 12-27-2020 Patient encounter status Faith Starkey MD Work Phone: [facility] Start: 12-03-2013 End: 03-03-2014 [facility] Procedures Date Procedure Procedure Detail Performing Clinician Start: 04-28-2025 Beta-hemolytic Strep tococcus culture Dr. Steffen Eisenberg MD Work Phone: Start: 04-22-2025 Ultrasonography for biophysical profile without non-stress testing Dr. Steffen Eisenberg MD Work Phone: Start: 04-19-2025 Ultrasonography for biophysical profile without non-stress testing Dr. Steffen Eisenberg MD Work Phone: Start: 04-15-2025 Ultrasonography for biophysical profile without non-stress testing Dr. Steffen Eisenberg MD Work Phone: Start: 04-07-[address] Steffen Eisenberg MD Work Phone: Comment on above: Performed at: [place] [id number] Director: Huan Kuhn PhD, Phone: [phone] Start: 03-10-2025 Gram stain microscopy D tapan Eisenberg MD Work Phone: Start: 03-10-2025 End: 03-10-[address] Steffen martinez MD Work Phone: Start: 02-26-2025 Serologic test for syphilis Dr. Steffen Eisenberg MD Work Phone: Start: 11-10-2024 D-dimer assay, quantitative Dr. Steffen Eisenberg MD Work Phone: Comment on above: NORMAL D-Dimer level (<0.50) indicates no DVT or PE. Start: 11-10-[address] Steffen Eisenberg MD Work Phone: Start: 11-10-2024 Measurement of renal function Dr. Steffen Eisenberg MD Work Phone: Comment on above: GFR Calc Start: 10-02-2024 Us preg uterus real time w/image dcmtn transvagiovanni Braxton MD Work Phone: Start: 09-25-2024 Us [...] MD Work Phone: Start: 07-27-2020 COVID-19, MOLECULAR Yamilex Thompson Work Phone: Start: 09-02-2019 Microscopic observat [...] Peterson Work Phone: Start: 03-19-2019 Troponin measurement thu Duque Work Phone: Start: 03-19-2019 Standard chest [...] Phone: Start: 03-19-2019 LIGHT GREEN TOP Laurent Khankirstin Neto Work Phone: Start: 03-19-2019 Lipase [Enzymatic activity/volume] [...] Phone: Comment on above: x1, Desires rpt csec 2020. desires re peat C/S 2020. desires re peat C/S: RLTCS 05/12/25 JV. H/O: section H/O sectio n Dr. Edel [...] Bullock DO H/O: section H/O sectio n Kiley Jain CNM H/O: section H/O sectio n Dr. Apple Lao MD H/O: section H/O sectio n Dr. Edel Bullock DO H/O: section H/O sectio n Dr. Edel Bullock DO Plan of Treatment Date Care Activity Detail Author Start: 2039 Zoster Vaccines (1 of 2) Zoste r Vaccines (1 of 2) [facility] Start: 05-03-2031 DTaP/Tdap/Td Vaccine s (3 - Td or Tdap) DTaP/Tdap/Td Vaccines (3 - Td or Tdap) [facility] Start: 05-03-2031 Tetanus vaccination TETANUS [facility] Start: 05-03-2031 Urine microalbumin profile DTaP,Tdap,Td Vaccine (3 - Td or Tdap) [facility] Start: 08-27-2027 Tetanus vaccination [facility] Start: 09-05-2025 Screening for malign ant neoplasm of cervix [facility] Start: 05-12-2025 ambulatory [facility] Start: 04-19-2025 Nonstress test [facility] Start: 04-19-2025 Obstetric monitoring [facility] Start: 04-19-2025 [facility] Start: 04-19-2025 Vital signs measurements [facility] Start: 04-19-2025 Ultrasonography for biophysical profile without non-stress testing OB Biophysical Prof W/O NST [facility] Start: 04-07-2025 Comprehensive metabo lic 2000 panel - Serum or Plasma [facility] Start: 04-07-2025 Procedure [facility] Start: 03-10-2025 Source specific culture Genital Cult ure [facility] Start: 03-10-2025 Source specific culture [facility] Start: 02-26-2025 CBC W Auto Different ial panel - Blood [facility] Start: 02-26-2025 Measurement of gluco se 2 hours after glucose challenge for glucose tolerance test [facility] Start: 02-26-2025 Serologic test for syphilis [facility] Start: 02-26-2025 [facility] Start: 11-10-2024 End: 11-10-2024 [facility] Start: 10-02-2024 End: 10-02-2024 Patient encounter procedure 10/02/2024 9:15 AM EST Appointment [address] [phone] [facility] Start: 08-25-2024 End: 08-25-2024 Patient encounter procedure 08/25/2024 8:30 AM EST Appointment [address] [phone] [facility] Start: 08-21-2024 End: 08-21-2024 Patient encounter procedure 08/21/2024 7:45 AM EST Appointment [address] [phone] [facility] Start: 06-24-2024 End: 06-24-2024 Patient encounter procedure 06/24/2024 7:30 AM EDT Appointment [facility] [address] [place] [address] [facility] Start: 06-22-2024 End: 06-22-2024 Patient encounter procedure 06/22/2024 7:45 AM EDT Appointment [facility] [address] [place] [address] [facility] Start: 06-19-2024 End: 06-19-2024 Patient encounter procedure 06/19/2024 7:45 AM EDT Appointment [facility] [address] [place] [address] [facility] Start: 05-31-2024 COVID-19 Vaccine ( season) COVID-19 Vaccine () [facility] Start: 05-31-2024 COVID-19 VACCINE () COVID-19 VACCINE () [facility] Start: 05-31-2024 COVID-19 Vaccine ( season) COVID-19 Vaccine () [facility] Start: 05-31-2024 Influenza vaccination [facility] Start: 05-01-2024 PREVENTATIVE HEALTH VISIT PREV ENTATIVE HEALTH VISIT [facility] Start: 09-30-2023 Behavioral Health Screening Behavioral Health Screening [facility] Start: 09-27-2023 End: 09-27-2023 Patient encounter procedure 09/27/2023 Office Visit [employer] Faith Starkey MD [address] [place] [address] [address] [place] [address] [facility] [place] Start: 09-27-2023 PREVENTATIVE HEALTH VISIT PREV ENTATIVE HEALTH VISIT [facility] Start: 09-05-2023 PREVENTATIVE HEALTH VISIT PREV ENTATIVE HEALTH VISIT [facility] Start: 05-31-2023 Covid-19 Vaccine ( season) Covid-19 Vaccine (2022- season) [facility] Start: 05-01-2023 End: 05-01-2023 Patient encounter procedure 05/01/2023 Office Visit General Medicine Marta Del Valle MD [address] [place] [phone] Primary Care Outpatient [facility] Start: 09-27-2022 End: 09-27-2022 Patient encounter procedure 09/27/2022 Office Visit General Medicine Marta Del Valle MD [address] [place] [address], [place] [phone] Primary Care Outpatient [facility] Start: 09-02-2022 Microscopic observat ion [Identifier] in Cervix by Cyto stain PAP SMEAR [facility] Start: 09-02-2022 Screening for malign ant neoplasm of cervix PAP SMEAR [facility] Start: 05-31-2022 Influenza vaccination INFLUENZA VACC INE (#1) [facility] Start: 09-28-2021 PREVENTATIVE HEALTH VISIT PREV ENTATIVE HEALTH VISIT [facility] Start: 09-27-2021 End: 09-27-2021 Patient encounter procedure 09/27/2021 Office Visit General Medicine Marta Del Valle MD [address] [place] [address], [place] [address] Primary Care Outpatient [facility] Start: 08-29-2021 End: 08-29-2021 Office Visit 08/29/2021 Office Visit Dermatology SrinivasWill MD [address] [place] [address] [phone] [facility] Start: 06-21-2021 End: 06-21-2021 Follow-up encounter 06/21/2021 Follow Up Visit [employer] Faith Starkey MD [address] [place] [phone] Obstetrics[facility]cology [facility] [place] Start: 06-07-2021 End: 06-07-2021 Follow-up encounter 06/07/2021 Follow Up Visit Maternal Medicine [facility] [place] Start: 05-31-2021 Influenza vaccination INFLUENZA VACC INE (#1) [facility] Start: 05-31-2021 End: 05-31-2021 Follow-up encounter 05/31/2021 Follow Up Visit [employer] [place] [address] [place] [phone] Obstetrics[facility]cology [facility] [place] Start: 05-22-2021 End: 05-22-2021 ambulatory 05/22/2021 Rehab Services Visit Sports Medicine and Rehabilitation Faith Starkey MD [address] [phone] Tere Cross, PT [address] [place] [address] [facility] [place] Start: 04-01-2021 COVID-19 VACCINE (3 - Booster for Pfizer series) COVID-19 VACCINE (3 - Booster for Pfizer series) [facility] Start: 03-29-2021 Influenza vaccinatio n given Sequential Influenza Vaccine (#1) [facility] Comment on above: Postponed from 05/31 (Patient Refused) Start: 08-23-2020 End: 08-23-2020 Office Visit 08/23/2020 Office Visit Dermatology SrinivasWill MD [address] [place] [address] [phone] [facility] Start: 2019 Screening for malign ant neoplasm of cervix HPV Testing [facility] Start: 09-02-2019 End: 09-02-2019 Office Visit 09/02/2019 Office Visit [employer] Faith Starkey MD [address] [facility] [address] [place] [phone] [employer] [facility] Start: 08-19-2019 End: 08-19-2019 Office Visit 08/19/2019 Office Visit Oncology Janes Gutiérrez MD [address] [facility] [address] [place] [address] [phone] [facility] Start: 05-31-2019 Influenza vaccination INFLUENZA VACC INE (#1) [facility] Start: 05-31-2019 Influenza vaccinatio n given [facility] Start: 05-08-2019 Microscopic observat ion Cyto stain Nom (Cvx) PAP SMEAR [facility] Start: 05-08-2019 Screening for malign ant neoplasm of cervix PAP SMEAR [facility] Start: 02-18-2019 End: 02-18-2019 Ambulatory 02/18/2019 Office Visit Oncology Janes Gutiérrez MD [address] [facility] [address] [place] [address] [phone] [facility] Start: 02-17-2019 End: 08-21-2019 Complete blood count with white cell differential, manual CBC and Differential Routine Leukocytosis, Unspecified Type Expected: 02/17/2019, Expires: 08/21/2019 [facility] Comment on above: Expected: 02/17/2019 , Expires: 08/21/2019 Start: 05-31-2018 Influenza vaccination SEQUENTI AL INFLUENZA VACCINE (#1) [facility] Start: 01-16-2016 Screening for malign ant neoplasm of cervix Pap Testing [facility] Start: 01-15-2014 Screening for malign ant neoplasm of cervix Cervical Cancer Screening [facility] Start: 2010 Screening for malign ant neoplasm of cervix HPV/Cotest [facility] Start: 2008 Hepatitis B vaccination HEP B VACCINE (1 of 3 - 19+ 3-dose series) [facility] Start: 2008 Hepatitis B Vaccine (1 of 3 - 19+ 3-dose series) Hepatitis B Vaccine (1 of 3 - 19+ 3-dose series) [facility] Start: 2008 Hepatitis B Vaccines (1 of 3 - 19+ 3-dose series) Hepatitis B Vaccines (1 of 3 - 19+ 3-dose series) [facility] Start: 2007 Anxiety Screening Anxiety Screening [facility] Start: 2007 Depression Screening Depression Scre melinda [facility] Start: 2007 Hepatitis C antibody , confirmatory test Hepatitis C Screening [facility] Start: 2007 Hepatitis C screening Hepatitis C Sc reening [facility] Start: 2007 HIV screening HIV Screening [facility] Start: 2004 HIV screening HIV Screening [facility] Start: 2002 Varicella vaccination Varicell a Vaccines (1 of 2 - 13+ 2-dose series) [facility] Start: 2001 Adolescent depressio n screening assessment Depression Screening (PHQ9) [facility] Start: 1992 History and physical examination, annual for health maintenance Wellness Visit [facility] Start: 1990 MMR Vaccines (1 of 1 - Standard series) MMR Vaccines (1 of 1 - Standard series) [facility] Start: 1989 HIV screening HIV Screening [facility] Start: 1989 Lipid panel Lipid Panel [facility] Start: 1989 Screening for malign ant neoplasm of cervix [facility] Start: 1989 Yearly Adult Physical Yearly Adult P hysical [facility] Alanine aminotransfe rase [Enzymatic activity/volume] in Serum or Plasma [facility] Albumin [Mass/volume ] in Serum or Plasma [facility] Alkaline phosphatase [Enzymatic activity/volume] in Serum or Plasma [facility] Anion gap in Serum o r Plasma [facility] Bilirubin, total measurement [facility] BUN/Creatinine ratio [facility] Calcium [Mass/volume ] in Serum or Plasma [facility] Carbon dioxide, tota l [Moles/volume] in Central venous blood [facility] Creatinine [Mass/vol ume] in Serum or Plasma [facility] Cytology Cervical or vaginal smear or scraping study CYTOLOGY-[employer]PERATOR, 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 Cytology Routine Well woman exam with routine gynecological exam 09/05/2022 3:07 [address] [facility] Erythrocyte mean corpuscular volume determination [facility] Glucose [Mass/volume ] in Serum or Plasma [facility] Hematocrit [Volume Fraction] of Blood [facility] Hemoglobin [Mass/vol ume] in Blood [facility] Leukocytes [#/volume ] in Blood [facility] Mean corpuscular hemoglobin concentration determination [facility] Mean corpuscular hemoglobin determination [facility] Measurement of renal function [facility] Neutrophil count [facility] Neutrophil percent differential count [facility] Patient Education ED About Arrhythmias Bl [facility] Medical Services Work Phone: Patient referral [facility] Services Work Phone: Platelets [#/volume] in Blood [facility] Potassium measurement [facility] Red blood cell count [facility] Red cell distributio n width determination [facility] End: 06-19-2024 GERRY US Pelvis Limited Follicles - Follicle Studies Performed [facility] Work Phone: Comment on above: Once for 1 Occurrenc es starting 06/19/2024 until 06/19/2024 End: 06-22-2024 GERRY US Pelvis Limited Follicles - Follicle Studies Performed [facility] Work Phone: Comment on above: Once for 1 Occurrenc es starting 06/22/2024 until 06/22/2024 End: 06-24-2024 GERRY US Pelvis Limited Follicles - Follicle Studies Performed [facility] Work Phone: Comment on above: Once for 1 Occurrenc es starting 06/24/2024 until 06/24/2024 Serum chloride measurement [facility] Sodium measurement [facility] Streptococcus agalac tiae [Presence] in Unspecified specimen by Organism specific culture [facility] Total protein measurement [facility] Urea nitrogen [Mass/volume] in Serum or Plasma [facility] End: 08-14-2024 US Pelvis transvaginal [facility] Service Area Work Phone: Comment on above: Once for 1 Occurrenc es starting 08/14/2024 until 08/14/2024 End: 08-21-2024 US Pelvis transvaginal [facility] Service Area Work Phone: Comment on above: Once for 1 Occurrenc es starting 08/21/2024 until 08/21/2024 End: 06-19-2024 US Pelvis transvaginal [facility] Service Area Work Phone: Comment on above: Once for 1 Occurrenc es starting 06/19/2024 until 06/19/2024 End: 06-22-2024 US Pelvis transvaginal [facility] Service Area Work Phone: Comment on above: Once for 1 Occurrenc es starting 06/22/2024 until 06/22/2024 End: 06-24-2024 US Pelvis transvaginal [facility] Service Area Work Phone: Comment on above: Once for 1 Occurrenc es starting 06/24/2024 until 06/24/2024 [facility] Immunizations Immunization Date Immunization Notes [facility] tetanus toxoid, redu mason diphtheria toxoid, and acellular pertussis vaccine, adsorbed Dr. Steffen Eisenberg MD Work Phone: [facility] 09-27-2022 influenza, injectabl e, quadrivalent, preservative free Marta Del Valle MD Work Phone: [facility] 09-27-2022 influenza quad vacci ne 0.5 ML Suspension Prefilled Syringe Marta Del Valle MD Work Phone: [facility] 09-27-2022 influenza virus vacc ine, unspecified formulation Gina Sahu APRN.CNP Work Phone: [facility] 06-21-2021 influenza, injectabl e, quadrivalent, preservative free Faith Starkey MD Work Phone: [facility] 06-21-2021 influenza virus vacc ine, unspecified formulation Faith Starkey MD Work Phone: [facility] 05-03-2021 tetanus toxoid, redu mason diphtheria toxoid, and acellular pertussis vaccine, adsorbed Faith Starkey MD Work Phone: [facility] 02-04-2021 Covid (Pfizer) Dr. Steffen chao MD Work Phone: [facility] 01-14-2021 Covid (Pfizer) Dr. Steffen chao MD Work Phone: [facility] 09-07-2020 Influenza, injectabl e, Madin [place] Canine Kidney, preservative free, quadrivalent Dr. Steffen Eisenberg MD Work Phone: [facility] 07-23-2019 influenza, injectabl e, quadrivalent, preservative free Faith Starkey MD Work Phone: [facility] 07-23-2019 influenza virus vacc ine, unspecified formulation Faith Starkey MD Work Phone: [facility] 07-31-2018 influenza, injectabl e, quadrivalent, contains preservative [facility] 07-31-2018 influenza, injectabl e, quadrivalent, preservative free Dr. Steffen Eisenberg MD Work Phone: [facility] 07-31-2018 influenza virus vacc ine, unspecified formulation [facility] 08-27-2017 tetanus toxoid, redu mason diphtheria toxoid, and acellular pertussis vaccine, adsorbed [facility] 11-15-2016 Human Papillomavirus 9-valent vaccine [facility] 06-18-2016 Human Papillomavirus 9-valent vaccine [facility] 05-08-2016 Human Papillomavirus 9-valent vaccine [facility] 09-20-2015 influenza virus vacc ine, whole virus [facility] 09-20-2015 influenza, injectabl e, quadrivalent, preservative free Dr. Steffen Eisenberg MD Work Phone: [facility] 08-18-2014 influenza virus vacc ine, whole virus [facility] 08-18-2014 influenza, injectabl e, quadrivalent, preservative free Dr. Steffen Eisenberg MD Work Phone: [facility] 08-30-2013 influenza virus vacc ine, unspecified formulation Marta [facility] Payers Date Payer Category Payer Blue Cross Blue Shie ld Managed Care [facility] [id number]. [id number] 2024 Unknown [id number] 2024 Self-pay 2023 Managed Care (Private) [facility] 1.2.840.485409.1.13.647.2. 7.9.534901.323317.315 2022 Unknown [id number] 2022 Unknown [id number] 2021 Private Health Insurance 1.2 .840.372888.1.13.172.2. 7.3.634560.315 2021 Unknown [id number] 2021 Unknown [id number] 2017 Unknown [id number] 1.2.840.610900.1.13.172.2. 7.3.401822.315 2017 Unknown [id number] 2017 Unknown [id number] 1.2.840.868352.1.13.385.2. 7.3.866885.315 2014 Unknown [id number] 2003 Unknown 1.2.840.298310. 1.13.159.2. 7.3.184720.315 2003 Unknown [id number] 1989 Unknown [id number] 2.16.840.1.335542.3.579.2. 903 1989 Unknown [id number] 2.16.840.1.012303.3.579.2. 903 1989 Unknown [id number] 2.16.840.1.805436.3.579.2. 902 1989 Unknown [id number] 2.16.840.1.439468.3.579.2. 900 1989 Unknown [id number] 2.16.840.1.145535.3.579.2. 900 1989 Unknown [id number] 2.16.840.1.411893.3.579.2. 594 1989 Unknown [id number] 2.16.840.1.763801.3.579.2. 594 1989 Unknown [id number] 2.16.840.1.369643.3.579.2. 594 1989 Unknown [id number] 2.16.840.1.343068.3.579.2. 594 1989 Unknown [id number] 2.16.840.1.220867.3.579.2. 594 1989 Unknown [id number] 2.16.840.1.522936.3.579.2. 594 1989 Unknown [id number] 2.16.840.1.140407.3.579.2. 594 1989 Unknown [id number] 2.16.840.1.494636.3.579.2. 594 1989 Unknown [id number] 2.16.840.1.839032.3.579.2. 594 1989 Unknown [id number] 2.16.840.1.878469.3.579.2. 594 1989 Unknown [id number] 2.16.840.1.834783.3.579.2. 594 1989 Unknown [id number] 2.16.840.1.502533.3.579.2. 1243 1989 Unknown [id number] 2.16.840.1.681951.3.579.2. 1243 1989 Unknown [id number] 2.16.840.1.174673.3.579.2. 124 1989 Unknown [id number] 2.16.840.1.429236.3.579.2. 124 1989 Unknown [id number] 2.16.840.1.862379.3.579.2. 124 1989 Unknown [id number] 2.16.840.1.961147.3.579.2. 1242 1989 Unknown [id number] 2.16.840.1.287276.3.579.2. 1243 1989 Unknown [id number] 2.16.840.1.827169.3.579.2. 1243 1989 Unknown [id number] 2.16.840.1.594818.3.579.2. 1244 1989 Unknown [id number] 2.16.840.1.941448.3.579.2. 1244 1989 Unknown [id number] 2.16.840.1.617372.3.579.2. 1244 1989 Unknown [id number] 2.16.840.1.842169.3.579.2. 1244 1989 Unknown [id number] 2.16.840.1.879008.3.579.2. 1244 1989 Unknown [id number] 2.16.840.1.917343.3.579.2. 1244 1989 Unknown [id number] 2.16.840.1.623978.3.579.2. 1244 1989 Unknown [id number] 2.16.840.1.031687.3.579.2. 1244 1989 Unknown [id number] 2.16.840.1.921214.3.579.2. 1244 1989 Unknown [id number] 2.16.840.1.157406.3.579.2. 1244 1989 Unknown [id number] 2.16.840.1.206574.3.579.2. 1244 1989 Unknown [id number] 2.16.840.1.003022.3.579.2. 1244 1989 Unknown [id number] 2.16.840.1.125019.3.579.2. 1244 1989 Unknown [id number] 2.16.840.1.074138.3.579.2. 9 1989 Unknown [id number] 2.16.840.1.975459.3.579.2. 1989 Unknown [id number] 2.16.840.1.577731.3.579.2. 479 1989 Unknown [id number] 2.16.840.1.742661.3.579.2. 479 1989 Unknown [id number] 2.16.840.1.907853.3.579.2. 479 1989 Unknown [id number] 2.16840.1.512034.3.579.2 479 1989 Unknown [id number] 2.16.840.1.919086.3.579.2 479 1989 Unknown [id number] 2.840.1.063176.3.579.2 479 1989 Unknown [id number] 2.840.1.802726.3.579.2 479 1989 Unknown [id number] 2.840.1.203030.3.579.2. 479 Unknown [id number] 2.840.1.038815.3.579.2. 462 Unknown [id number] 2.16840.1.467148.3.579.2. 462 Unknown [id number] 2.16840.1.090862.3.579.2. 462 Unknown [id number] 2.16840.1.665420.3.579.2. 462 Unknown [id number] 2.16840.1.611028.3.579.2. 462 Unknown [id number] 2.16840.1.808593.3.579.2. 462 Unknown [id number] 2.16840.1.158089.3.579.2. 462 Unknown [id number] 2.16840.1.516972.3.579.2. 462 Unknown [id number] 2.16840.1.216560.3.579.2. 462 Unknown [id number] 2.16.840.1.655776.3.579.2. 462 Unknown [id number] 2.16.840.1.598830.3.579.2. 462 Unknown [id number] 2.16.840.1.903687.3.579.2. 462 Unknown [id number] 2.16.840.1.109927.3.579.2. 462 Unknown [id number] 2.16.840.1.531151.3.579.2. 462 Unknown [id number] 2.16.840.1.438222.3.579.2. 462 Unknown [id number] 2.16.840.1.719053.3.579.2. 462 Unknown [id number] 2.16.840.1.515575.3.579.2. 462 Unknown [id number] 2.16.840.1.992714.3.579.2. 462 Unknown [id number] 2.16.840.1.106310.3.579.2. 462 Unknown [id number] 2.16.840.1.331225.3.579.2. 462 Unknown [id number] 2.16.840.1.367074.3.579.2. 462 Unknown [id number] 2.16.840.1.732983.3.579.2. 462 Unknown [id number] 2.16.840.1.848012.3.579.2. 462 Unknown [id number] 2.16.840.1.159017.3.579.2. 462 Unknown [id number] 2.16.840.1.844029.3.579.2. 462 Unknown [id number] 2.16.840.1.613433.3.579.2. 462 Unknown [id number] 2.16.840.1.400756.3.579.2. 462 Unknown [id number] 2.16.840.1.595247.3.579.2. 462 Unknown [id number] 2.16.840.1.190985.3.579.2. 462 Unknown [id number] 2.16.840.1.619906.3.579.2. 462 Unknown [id number] 2.16.840.1.944622.3.579.2. 462 Social History Date Type Detail Facility Start: 02-20-2012 End: 08-20-2018 Tobacco smoking status AKIS Never smoker [facility] Start: 1990 Sex Assigned At Not on file O [facility] Start: 07-31-2018 End: 11-10-2024 Tobacco smoking status [facility] Former smoker [facility] Start: 10-01-2009 End: 10-01-2010 History of tobacco use Current smoker [facility] Start: 10-01-2009 End: 10-01-2010 History of tobacco use Cigarette Smoker [facility] Start: 07-31-2018 End: 01-12-2024 Cigarettes smoked current (pack per day) - Reported [facility] Start: 12-09-2013 Alcohol Comment 1-2 times per week, up to 2 glasses of wine at a time [facility] Start: 07-29-2019 End: 01-12-2024 Alcohol intake Current drinker of alcohol (finding) [facility] Start: 02-20-2012 End: 08-23-2020 Tobacco use and exposure Never used [facility] Start: 06-05-2024 End: 10-02-2024 Exposure to SARS-CoV-2 (event) Not sure [facility] Exposure to SARS-CoV -2 (event) Yes [facility] Start: 07-31-2018 End: 01-12-2024 Alcohol intake Yes [facility] Start: 05-03-2021 End: 05-01-2023 Alcohol intake Ex-drinker (finding) [facility] Start: 12-09-2013 Alcohol Comment 1-2 times per week, up to 2 glasses of wine at a time [facility] Start: 10-21-2020 [facility] Start: 08-26-2022 End: 09-27-2022 Exposure to SARS-CoV-2 (event) Unable to assess [facility] Start: 11-04-2023 Tobacco smoking stat us NHIS Unknown if ever smoked [facility] Start: 1990 Sex Assigned At Female [facility] Start: 02-20-2012 Alcohol Comment occassional [facility] Depression Score 10 [facility] Gender identity Identifies as fe male gender (finding) [facility] Goals Date Patient Goal Desired Activity /State [...] Assessment Result Facility 11-10-2024 Cognitive function Voice/Name [facility] Work Phone: Clinical Notes 05-17-2021 to 04-28-2025 Note Date & Type Note Facility 04-28-2025 Progress note [facility] 04-28-2025 Progress note Note Date/Time April 28, 2025 2:47pm [facility] [address], [address] [place] [address] OFFICE VISIT Date of Service: 04/28/25 MR#: [id number] Acct: [id number] Name: BARBY CABALLERO Rep #: [id number] : 1990 Provider: Dr. Kellen Bullock DO Age/Sex: 34/F Location: [facility] Status: Signed Intake Vital Signs 03/10/25 14:28 04/20/25 14:13 04/28/25 14:03 04/28/25 14:05 Height 5 ft 2 in 5 ft 2 in 5 ft 2 in 5 ft 2 in Weight: 268 lb 4 oz 265 lb 4 oz BMI 49.0 48.5 BP 116/81 H 123/86 H Intake Visit Reasons: 37 WK OB *CSECTION/JV Supervisor Agency Appointments Required: No Is patient in pain?: No Allergies No Known Allergies Allergy (Verified 04/28/25 14:03) Medications ?Medication ?Instructions ?Recorded ?Confirmed ?Type escitalopram oxalate 10 mg tablet 10 mg PO DAILY #30 t abs 07/20/24 04/28/25 Rx (Lexapro) docosahexaenoic acid 200 mg 200 mg PO DAILY #90 caps 1 04/28/25 Rx capsule ( DHA) levothyroxine 25 mcg tablet 25 mcg PO QDAY #90 tabs 04/28/25 Rx (Synthroid) famotidine 40 mg tablet (Pepcid) 40 mg PO DAILY #30 ta bs 01/11/25 04/28/25 Rx breast pump #1 ea 01/29/25 04/28/25 Rx aspirin 81 mg tablet 81 mg PO DAILY 04/19/25/ History magnesium 200 mg tablet 200 mg PO DAILY 04/19/25 History Last Menstrual Period: 08/12/24 Zika: Zika virus [...] 1 current occupational status: unemployed current occupation: 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 Slow progression of labor w/ decels .. Failed vacuum delivery into emergency csec HPI 37 WK OB *CSECTION/JV Details: BARBY CABALLERO is a 34 year old who presents for routine OB visit. OB Visit ANTONIO Calculator Estimated Delivery Date Method Current WG Current Estimate 05/19/25 Conception 37w 0d Expected Delivery Route/Plan repeat c/s Specific Issue/Plans [...] transfer. declines NIPT had genetic testing at I 11/05/24 -?-?-?-?-?-?-?-?-?-?-?-?- 12w 1d 260 lb (-4 [...] fm nreo gualr ctx cbc gct today 03/10/25 -?-?-?-?-?-?-?-?-?-?-?-?- 30w 0d 265 lb 8 oz (+1 lb 8 oz) 110/76 Negative -?-?-?-?-?-?-?-?-?-?-?-?- Negative 147 30 0 -?-?-?-?-?-?-?-?-?-?-?-?- J- no lof, vagi nal bleeding, or dec fm. has growth scans at 34 and [address] [facility] signed today JV- no lof, vaginal bleeding , or dec fm. has growth scans at 34 and [address] [facility] signed today. pelvic exam performed for tightening feeling. vaginitis smear ordered. 03/26/25 -?-?-?-?-?-?-?-?-?-?-?-?- 32w 2d 267 lb 4 oz (+3 lb 4 oz) 131/82 Negative -?-?-?-?-?-?-?-?-?-?-?-?- Negative 142 38 -?-?-?-?-?-?-?-?-?-?-?-?- JV- needs weekly bpp's starting 34 weeks for bmi and IVF. no complaints. contractions stopped with treatment of yeast. 04/07/25 -?-?-?-?-?-?-?-?-?-?-?-?- 34w 0d 268 lb 4 oz (+4 lb 4 oz) 119/80 -?-?-?-?-?-?-?-?-?-?-?-?- 138 35 -?-?-?-?-?-?-?-?-?-?-?-?- JV- c/o overall itching. bile acids and cmp ordered. low suspicion for Cholestasis of however. no lof, vaginal bleeding, or dec fm. 04/20/25 -?-?-?-?-?-?-?-?-?-?-?-?- 35w 6d 268 lb 4 oz (+4 lb 4 oz) 116/81 Negative -?-?-?-?-?-?-?-?-?-?-?-?- Negative 140 37 -?-?-?-?-?-?-?-?-?-?-?-?- SM- no vb lof go od fm no reuglar ctx 04/28/25 -?-?-?-?-?-?-?-?-?-?-?-?- 37w 0d 265 lb 4 oz (+1 lb 4 oz) 123/86 Negative -?-?-?-?-?-?-?-?-?-?-?-?- Negative 150 -?-?-?-?-?-?-?-?-?-?-?-?- JV- nst reactive GBS collected. no lof, vaginal bleeding, or dec fm. ACOG First Trimester First Trimester: Discussed Second Trimester Second Trimester: Signs and Symptoms of Labor, Selecting a care provider, Reproductive Life Planning & Contreception, Care Planning, Depression/Anxiety and Intimate Partner Violence; Discussed Tobacco Cessation Third Trimester Third Trimester: Pain Management Plans, Labor support person(s), Immediate Larc, Signs and Symptoms of Preeclampsia, Infant Feeding No , Education and Family Medical Leave or Disability Forms Office Procedures Non-stress Test Non-Stress Test Indications for Monitoring: Yes Morbid obesity Heart Rate Baseline: 150 Heart Rate Variability: moderate Movement: Present Heart Rate Accelerations: Present Decelerations: Absent Contractions: Present Impression: Yes Reactive Non-Stress Test Results POC Urinalysis 2 Dip (Clinic) Office Urine Glucose Negative Last Edit by Trice Cooley on 04/28/25 14: 43 Office Urine Protein Negative Last Edit by Trice Cooley on 04/28/25 14: 43 Coding Level of Care Code OB Routine Diagnoses Itching L29.9 Abnormal glucose affecting O99.810 H/O section Z98.891 AMA (advanced maternal age) multigravida 35+ O09.529 Conceived by in vitro fertilization Z78.9 Family history of genetic disorder Z84.89 Marijuana use F12.90 Obesity affecting O99.210 Rh negative status during O26.899; Z67.91 Supervision of high-risk O09.90 37 weeks gestation of Z3A.37 Weeks of gestation: 37 weeks Sleep apnea G47.30 Infertility associated with anovulation N97.0 Gastroesophageal reflux disease without esophagitis K21.9 Esophagitis presence: without esophagitis Depression with anxiety F41.8 PCOS (polycystic ovarian syndrome) E28.2 CPT Codes Non-Stress Test (34883) Assessment and Plan Assessment and Plan (1) Itching: Status: Acute (2) Abnormal glucose affecting : Status: Acute Comment: passed 3 hour gtt (3) H/O section: Status: Acute Comment: [id number]. desires repeat C/S: RLTCS 05/12/25 JV. (4) AMA (advanced maternal age) multigravida 35+: Status: Acute (5) Conceived by in vitro fertilization: Status: Acute Comment: growth and NSTs at 36 weeks. deliver by 39. Transferred male embryo - embryo tested (6) Family history of genetic disorder: Status: Acute Comment: FOB w/ Shaw Muscular Dystrophy (X Chromosome linked) FOB adopted with limited medical history (7) Marijuana use: Status: Acute Comment: Last use: May 2024; Pt informed of random tox screens (8) Obesity affecting : Status: Acute Comment: BMI 47.5; twice weekly BPPs at 34 weeks-HgBA1C ordered (9) Rh negative status during : Status: Acute Comment: B-, Needs Rhogam @ 28 weeks (10) Supervision of high-risk : Status: Acute Comment: PRR, , ANTONIO 05/19/25,boy PC: Larry, : [place] (11) : Status: Acute Qualifiers: Weeks of gestation: 37 weeks Qualified Code(s): Z3A.37 - 37 weeks gestation of Comment: Discussed genetic/carrier testing - declines d/t embryo tested prior to transfer, nl anatomy. echo normal. (12) Sleep apnea: Status: Acute (13) Infertility associated with anovulation: Status: Acute (14) GERD (gastroesophageal reflux disease): Status: Acute Qualifiers: Esophagitis presence: without esophagitis Qualified Code(s): K21.9 - Gastro-esophageal reflux disease without esophagitis (15) Depression with anxiety: Status: Acute (16) PCOS (polycystic ovarian syndrome): Status: Acute Orders: Orders POC Urinalysis 2 Dip (Clinic) Today OB NST Today Z78.9 - Other specified health status Culture, Group B Streptococcus Today O09.90 - Supervision of high risk , unspecified, unspecified trimester 04/28/25 1447 <Electronically signed by Edel Quintana DO> Date _ Edel Bullock DO Cosigner Signature: Date (if applicable) CC: ~ [facility] [employer] [facility] Work Phone: 1(225) 582-178607-28-2025 Radiology Diagnostic study note [facility] Imaging Services [address] [place], [place] [id number] OB Biophysical Prof W/O NST MR#: [id number] Acct: [id number] Name: BARBY CABALLERO Rep #: [id number] : 1990 F 34 From: Sloan Padron MD PCP: Dr. Steffen Eisenberg MD Status: REG CLI Study:OB Biophysical Prof W/O NST Date of Exa m: 04/22/25 Exam# [id number] Ordering Dr: Edel Rowley DO PROCEDURE: OB BIOPHYSICAL PROF W/O NST 04/22/2025 REASON FOR EXAM: WELLBEING TECHNIQUE: OB BIOPHYSICAL PROF W/O NST COMPARISON: Prior sonogram dated April 19, 2025. FINDINGS Number: 1 Position: Vertex Placental Position: Posterior and not low-lying Placental Abnormalities: No evidence of previa. ESTIMATED GESTATIONAL AGE: Baseline: 36 weeks and 1 day ESTIMATED DATE OF DELIVERY: Baseline: May 19, 2025 BIOPHYSICAL ASSESSMENT: Amniotic Fluid Volume: 6 cm Amniotic Fluid Index: 19.8 (8-24 cm normal range) Cardiac Motion: 150 beats per minute (average) Trunk and Limb Motion: Present. MATERNAL ANATOMY: Adnexa: Neither maternal ovary is successfully identified. Biophysical profile: Breathing movements: 2 Gross body movements: 2 tone: 2 Amniotic fluid volume: 2 Total score: 8/8 US/OB Biophysical Prof W/O NST IMPRESSION: Normal biophysical profile. Reading Location: [id number] CC: Dr. Steffen Eisenberg MD; Dr. Edel Bullock DO ~ Airport Screener: Signed [facility]07-22-2025 Progress [place] [facility] [address], [address] [place] [address] OFFICE VISIT Date of Service: 04/20/25 MR#: [id number] Acct: [id number] Name: BARBY CABALLERO Rep #: [id number] : 1990 Provider: Dr. Frank Lao MD Age/Sex: 34/F Location[facility] Status: Signed Intake Vital Signs 01/29/25 10:30 04/19/25 10:03 04/20/25 14:13 Height 5 ft 2 in 5 ft 2 in 5 ft 2 in Weight: 268 lb 4 oz BMI 49.0 BP 116/81 H Intake Visit Reasons: 36 wk ob *Doc Only* Supervisor Agency Appointments Required: No Is patient in pain?: No Allergies No Known Allergies Allergy (Verified 04/20/25 14:14) Medications ?Medication ?Instructions ?Recorded ?Confirmed ?Type escitalopram oxalate 10 mg tablet 10 mg PO DAILY #30 t abs 07/20/24 04/20/25 Rx (Lexapro) docosahexaenoic acid 200 mg 200 mg PO DAILY #90 caps 1 04/20/25 Rx capsule ( DHA) levothyroxine 25 mcg tablet 25 mcg PO QDAY #90 tabs 04/20/25 Rx (Synthroid) famotidine 40 mg tablet (Pepcid) 40 mg PO DAILY #30 ta bs 01/11/25 04/20/25 Rx breast pump #1 ea 01/29/25 04/20/25 Rx aspirin 81 mg tablet 81 mg PO DAILY 04/19/2503/31 History magnesium 200 mg tablet 200 mg PO DAILY 04/19/25 History Last Menstrual Period: 08/12/24 Zika: Zika virus [...] 1 current occupational status: unemployed current occupation: 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 Date Name GA/Weeks Outcome Route Bth Weight Infant Gen Labor Lgth Anesthesia Del Locatn Provider FOB 07/18/21 Larry 40 live - full term 7lbs 7oz Male [facility] [place] Delivery Date: 07/18/21 Last Updated by: Aida Shields RN Induce d/t failure to progress naturally .. Slow progression of labor w/ decels .. Failed vacuum delivery into emergency csec HPI 36 wk ob *Doc Only* Details: BARBY CABALLERO is a 34 year old who presents for routine OB visit. OB Visit ANTONIO Calculator Estimated Delivery Date Method Current WG Current Estimate 05/19/25 Conception 35w 6d Expected Delivery Route/Plan repeat c/s Specific Issue/Plans Covid status: [] Flu vaccine: [] Tdap vaccine: [] Rhogam: [] LARC form signed: [] Problem list reviewed and updated with the most current plan of care details and appropriate ordersplaced. Relevant counseling for the gestational age provided. Continue routine care and follow up unless otherwise noted in visit notes/problem list details Initial Weight: 264 lb Date -?-?-?-?-?-?-?-?-?-?-?-?- EGA Weight BP Urine Prot -?-?--?-?-?-?-?-?-?-?-?-?- Glucose FHR FuHt Pres Dilation -?-?-?-?-?-?-?-?--?-?-?-?- Effaced St Visit Note 10/09/24 -?-?-?-?-?-?-?-?-?-?-?-?- 8w 2d 264 lb (+0 oz) 120/76 -?-?-?-?-?-?-?-?-?-?-?-?- 169 -?-?-?-?-?-?-?-?-?-?-?-?- KW-CRL cons with embryo transfer. declines NIPT had genetic testing at [facility] 11/05/24 -?-?-?-?-?-?-?-?-?-?-?-?- 12w 1d 260 lb (-4 [...] fm nreo gualr ctx cbc gct today 03/10/25 -?-?-?-?-?-?-?-?-?-?-?-?- 30w 0d 265 lb 8 oz (+1 lb 8 oz) 110/76 Negative -?-?-?-?-?-?-?-?-?-?-?-?- Negative 147 30 0 -?-?-?-?-?-?-?-?-?-?-?-?- JV- no lof, vagi nal bleeding, or dec fm. has growth scans at 34 and [address] [facility] signed today JV- no lof, vaginal bleeding , or dec fm. has growth scans at 34 and [address] [facility] signed today. pelvic exam performed for tightening feeling. vaginitis smear ordered. 03/26/25 -?-?-?-?-?-?-?-?-?-?-?-?- 32w 2d 267 lb 4 oz (+3 lb 4 oz) 131/82 Negative -?-?-?-?-?-?-?-?-?-?-?-?- Negative 142 38 -?-?-?-?-?-?-?-?-?-?-?-?- JV- needs weekly bpp's starting 34 weeks for bmi and IVF. no complaints. contractions stopped with treatment of yeast. 04/07/25 -?-?-?-?-?-?-?-?-?-?-?-?- 34w 0d 268 lb 4 oz (+4 lb 4 oz) 119/80 -?-?-?-?-?-?-?-?-?-?-?-?- 138 35 -?-?-?--?-?-?-?-?-?-?-?-?- JV- c/o overall itching. bile acids and cmp ordered. low suspicion for Cholestasis of however. no lof, vaginal bleeding, or dec fm. 04/20/25 -?-?-?-?-?-?-?-?-?-?-?-?- 35w 6d 268 lb 4 oz (+4 lb 4 oz) 116/81 Negative -?-?-?-?-?-?-?-?-?-?-?-?- Negative 140 37 -?-?-?-?-?-?-?-?-?--?-?-?- SM- no vb lof go od fm no reuglar ctx ACOG First Trimester First Trimester: Discussed Second Trimester Second Trimester: Signs and Symptoms of Labor, Selecting a care provider, Reproductive Life Planning & Contreception, Care Planning, Depression/Anxiety and Intimate Partner Violence; Discussed Tobacco Cessation Third Trimester Third Trimester: Pain Management Plans, Labor support person(s), Immediate Larc, Signs and Symptoms of Preeclampsia, Infant Feeding No , Education and Family Medical Leave or Disability Forms Results POC Urinalysis 2 Dip (Clinic) Office Urine Glucose Negative Last Edit by Aziza Olson on 04/20/25 14:19 Office Urine Protein Negative Last Edit by Aziza Olson on 04/20/25 14:19 Coding Level of Care Code OB Routine Diagnoses Itching L29.9 Abnormal glucose affecting O99.810 H/O section Z98.891 AMA (advanced maternal age) multigravida 35+ O09.529 Conceived by in vitro fertilization Z78.9 Family history of genetic disorder Z84.89 Marijuana use F12.90 Obesity affecting O99.210 Rh negative status during O26.899; Z67.91 Supervision of high-risk O09.90 34 weeks gestation of Z3A.34 Weeks of gestation: 34 weeks Sleep apnea G47.30 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 desires repeat C/S: RLTCS 05/12/25 JV. (4) AMA (advanced maternal age) multigravida 35+: Status: Acute (5) Conceived by in vitro fertilization: Status: Acute Comment: growth and NSTs at 36 weeks. deliver by 39. Transferred male embryo - embryo tested (6) Family history of genetic disorder: Status: Acute Comment: FOB w/ Shaw Muscular Dystrophy (X Chromosome linked) FOB adopted with limited medical history (7) Marijuana use: Status: Acute Comment: Last use: May 2024; Pt informed of random tox screens (8) Obesity affecting : Status: Acute Comment: BMI 47.5; twice weekly BPPs at 34 weeks-HgBA1C ordered (9) Rh negative status during : Status: Acute Comment: B-, Needs Rhogam @ 28 weeks (10) Supervision of high-risk : Status: Acute Comment: PRR, , ANTONIO 05/19/25,boy PC: Larry, : [place] (11) : Status: Acute Qualifiers: Weeks of gestation: 34 weeks Qualified Code(s): Z3A.34 - 34 weeks gestation of Comment: Discussed genetic/carrier testing - declines d/t embryo tested prior to transfer, nl anatomy. Fetalecho normal. (12) Sleep apnea: Status: Acute (13) Infertility associated with anovulation: Status: Acute (14) GERD (gastroesophageal reflux disease): Status: Acute Qualifiers: Esophagitis presence: without esophagitis Qualified Code(s): K21.9 - Gastro- esophageal reflux disease without esophagitis (15) PCOS (polycystic ovarian syndrome): Status: Acute (16) Depression with anxiety: Status: Acute Orders: Orders POC Urinalysis 2 Dip (Clinic) Today 04/20/25 1429 stephanie WOLFE> Date _ Apple Lao MD Cosigner Signature: Date (if applicable) CC: ~ [facility]07-22-2025 Progress note Author Apple Lao [facility] Services Note Date/Time April 20, 2025 2:29 pm [facility]'s [address], [address] [place] [address] OFFICE VISIT Date of Service: 04/20/25 MR#: [id number] Acct: [id number] Name: FEDERICOBARBYVICKI BLAND Rep #: [id number] : 1990 Provider: Dr. Frank Lao MD Age/Sex: 34/F Location[facility] Status: Signed Intake Vital Signs 01/29/25 10:30 04/19/25 10:03 04/20/25 14:13 Height 5 ft 2 in 5 ft 2 in 5 ft 2 in Weight: 268 lb 4 oz BMI 49.0 BP 116/81 H Intake Visit Reasons: 36 wk ob *Doc Only* Supervisor Agency Appointments Required: No Is patient in pain?: No Allergies No Known Allergies Allergy (Verified 04/20/25 14:14) Medications ?Medication ?Instructions ?Recorded ?Confirmed ?Type escitalopram oxalate 10 mg tablet 10 mg PO DAILY #30 t abs 07/20/24 04/20/25 Rx (Lexapro) docosahexaenoic acid 200 mg 200 mg PO DAILY #90 caps 1 04/20/25 Rx capsule ( DHA) levothyroxine 25 mcg tablet 25 mcg PO QDAY #90 tabs 04/20/25 Rx (Synthroid) famotidine 40 mg tablet (Pepcid) 40 mg PO DAILY #30 ta bs 01/11/25 04/20/25 Rx breast pump #1 ea 01/29/25 04/20/25 Rx aspirin 81 mg tablet 81 mg PO DAILY 04/19/25/11/24 History magnesium 200 mg tablet 200 mg PO DAILY 04/19/25 History Last Menstrual Period: 08/12/24 Zika: Zika virus [...] 1 current occupational status: unemployed current occupation: 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 Date Name GA/Weeks Outcome Route Bth Weight Infant Gen Labor Lgth Anesthesia Del Locatn Provider FOB 07/18/21 Larry 40 live - full term 7lbs 7oz Male [facility] [place] Delivery Date: 07/18/21 Last Updated by: Aida Shields RN Induce d/t failure to progress naturally .. Slow progression of labor w/ decels .. Failed vacuum delivery into emergency csec HPI 36 wk ob *Doc Only* Details: BARBY CABALLERO is a 34 year old who presents for routine OB visit. OB Visit ANTONIO Calculator Estimated Delivery Date Method Current WG Current Estimate 05/19/25 Conception 35w 6d Expected Delivery Route/Plan repeat c/s Specific Issue/Plans [...] Date -?-?-?-?-?-?-?-?-?-?-?-?- EGA Weight BP Urine Prot -?-?--?-?-?-?-?-?-?-?-?-?- Glucose FHR FuHt Pres Dilation -?-?-?-?-?-?-?-?--?-?-?-?- Effaced St Visit Note 10/09/24 -?-?-?-?-?-?-?-?-?-?-?-?- 8w 2d 264 lb (+0 oz) 120/76 -?-?-?-?-?-?-?-?-?-?-?-?- 169 -?-?-?-?-?-?-?-?-?-?-?-?- KW-CRL cons with embryo transfer. declines NIPT had genetic testing at [facility] 11/05/24 -?-?-?-?-?-?-?-?-?-?-?-?- 12w 1d 260 lb (-4 [...] fm nreo gualr ctx cbc gct today 03/10/25 -?-?-?-?-?-?-?-?-?-?-?-?- 30w 0d 265 lb 8 oz (+1 lb 8 oz) 110/76 Negative -?-?-?-?-?-?-?-?-?-?-?-?- Negative 147 30 0 -?-?-?-?-?-?-?-?-?-?-?-?- JV- no lof, vagi nal bleeding, or dec fm. has growth scans at 34 and [address] [facility] signed today JV- no lof, vaginal bleeding , or dec fm. has growth scans at 34 and [address] [facility] signed today. pelvic exam performed for tightening feeling. vaginitis smear ordered. 03/26/25 -?-?-?-?-?-?-?-?-?-?-?-?- 32w 2d 267 lb 4 oz (+3 lb 4 oz) 131/82 Negative -?-?-?-?-?-?-?-?-?-?-?-?- Negative 142 38 -?-?-?-?-?-?-?-?-?-?-?-?- JV- needs weekly bpp's starting 34 weeks for bmi and IVF. no complaints. contractions stopped with treatment of yeast. 04/07/25 -?-?-?-?-?-?-?-?-?-?-?-?- 34w 0d 268 lb 4 oz (+4 lb 4 oz) 119/80 -?-?-?-?-?-?-?-?-?-?-?-?- 138 35 -?-?-?--?-?-?-?-?-?-?-?-?- JV- c/o overall itching. bile acids and cmp ordered. low suspicion for Cholestasis of however. no lof, vaginal bleeding, or dec fm. 04/20/25 -?-?-?-?-?-?-?-?-?-?-?-?- 35w 6d 268 lb 4 oz (+4 lb 4 oz) 116/81 Negative -?-?-?-?-?-?-?-?-?-?-?-?- Negative 140 37 -?-?-?-?-?-?-?-?-?--?-?-?- SM- no vb lof go od fm no reuglar ctx ACOG First Trimester First Trimester: Discussed Second Trimester Second Trimester: Signs and Symptoms of Labor, Selecting a care provider, Reproductive Life Planning & Contreception, Care Planning, Depression/Anxiety and Intimate Partner Violence; Discussed Tobacco Cessation Third Trimester Third Trimester: Pain Management Plans, Labor support person(s), Immediate Larc, Signs and Symptoms of Preeclampsia, Infant Feeding No , [place] Education and Family Medical Leave or Disability Forms Results POC Urinalysis 2 Dip (Clinic) Office Urine Glucose Negative Last Edit by Aziza Olson on 04/20/25 14:19 Office Urine Protein Negative Last Edit by Aziza Olson on 04/20/25 14:19 Coding Level of Care Code OB Routine Diagnoses Itching L29.9 Abnormal glucose affecting O99.810 H/O section Z98.891 AMA (advanced maternal age) multigravida 35+ O09.529 Conceived by in vitro fertilization Z78.9 Family history of genetic disorder Z84.89 Marijuana use F12.90 Obesity affecting O99.210 Rh negative status during O26.899; Z67.91 Supervision of high-risk O09.90 34 weeks gestation of Z3A.34 Weeks of gestation: 34 weeks Sleep apnea G47.30 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 desires repeat C/S: RLTCS 05/12/25 JV. (4) AMA (advanced maternal age) multigravida 35+: Status: Acute (5) Conceived by in vitro fertilization: Status: Acute Comment: growth and NSTs at 36 weeks. deliver by 39. Transferred male embryo - embryo tested (6) Family history of genetic disorder: Status: Acute Comment: FOB w/ Shaw Muscular Dystrophy (X Chromosome linked) FOB adopted with limited medical history (7) Marijuana use: Status: Acute Comment: Last use: May 2024; Pt informed of random tox screens (8) Obesity affecting : Status: Acute Comment: BMI 47.5; twice weekly BPPs at 34 weeks-HgBA1C ordered (9) Rh negative status during : Status: Acute Comment: B-, Needs Rhogam @ 28 weeks (10) Supervision of high-risk : Status: Acute Comment: PRR, , ANTONIO 05/19/25,boy PC: Larry, : [place] (11) : Status: Acute Qualifiers: Weeks of gestation: 34 weeks Qualified Code(s): Z3A.34 - 34 weeks gestation of Comment: Discussed genetic/carrier testing - declines d/t embryo tested prior to transfer, nl anatomy. echo normal. (12) Sleep apnea: Status: Acute (13) Infertility associated with anovulation: Status: Acute (14) GERD (gastroesophageal reflux disease): Status: Acute Qualifiers: Esophagitis presence: without esophagitis Qualified Code(s): K21.9 - Gastro-esophageal reflux disease without esophagitis (15) PCOS (polycystic ovarian syndrome): Status: Acute (16) Depression with anxiety: Status: Acute Orders: Orders POC Urinalysis 2 Dip (Clinic) Today 04/20/25 1196 <Electronically signed by Apple brown MD> Date _ Apple Haque Signature: Date (if applicable) CC: ~ [facility] Services Work Phone: [phone] Radiology Diagnostic study note [facility] Imaging Services [address] [place] [address] OB Biophysical Prof W/O NST MR#: [id number] Acct: [id number] Name: BARBY CABALLERO Rep #: [id number] : 1990 F 34 From: Sloan Padron MD PCP: Dr. Steffen Eisenberg MD Status: REG CLI Study:OB Biophysical Prof W/O NST Date of Exa m: 04/15/25 Exam# [id number] Ordering Dr: Edel Rowley DO PROCEDURE: OB BIOPHYSICAL PROF W/O NST 04/15/2025 REASON FOR EXAM: WELLBEING TECHNIQUE: OB BIOPHYSICAL PROF W/O NST COMPARISON: None FINDINGS LMP: August 12, 2025. Number: 1 Position: Vertex Placental Position: Posterior and not low-lying. Placental Abnormalities: No evidence of previa. ESTIMATED GESTATIONAL AGE: Baseline: 35 weeks and 1 day ESTIMATED DATE OF DELIVERY: Baseline: May 19, 2025. BIOPHYSICAL ASSESSMENT: Amniotic Fluid Volume: 6.8 cm Amniotic Fluid Index: 14.7 (8-24 cm normal range) Cardiac Motion: 147 beats per minute (average) Trunk and Limb Motion: Present. MATERNAL ANATOMY: Adnexa: Neither maternal ovary is successfully identified. Biophysical profile: Breathing movements: 2 Gross body movements: 2 tone: 2 Amniotic fluid index: 2 Total score: 8/8 US/OB Biophysical Prof W/O NST IMPRESSION: Normal biophysical profile. Reading Location: [facility] CC: Dr. Steffen Eisenberg MD; Dr. Edel Bullock DO ~ Airport Screener: Signed [facility]07-09-2025 Progress [facility]'s [address], [address] [place] [address] OFFICE VISIT Date of Service: 04/07/25 MR#: [id number] Acct: [id number] Name: BARBY CABALLERO Rep #: [id number] : 1990 Provider: Dr. Kellen Bullock DO Age/Sex: 34/F Location[place] [facility] Status: Signed Intake Vital Signs 01/29/25 10:30 03/26/25 14:17 04/07/25 10:00 Height 5 ft 2 in 5 ft 2 in 5 ft 2 in Weight: 268 lb 4 oz BMI 49.0 BP 119/80 Intake Visit Reasons: 34 wk ob *Doc Only* Supervisor Agency Appointments Required: No Is patient in pain?: No Allergies No Known Allergies Allergy (Verified 04/07/25 10:09) Medications ?Medication ?Instructions ?Recorded ?Confirmed ?Type escitalopram oxalate 10 mg tablet 10 mg PO DAILY #30 t abs 07/20/24 04/07/25 Rx (Lexapro) docosahexaenoic acid 200 mg 200 mg PO DAILY #90 caps 1 04/07/25 Rx capsule ( DHA) levothyroxine 25 mcg tablet 25 mcg PO QDAY #90 tabs 04/07/25 Rx (Synthroid) promethazine 25 mg tablet 25 mg PO Q6H PRN headache #3 0 tabs 12/17/24 04/07/25 Rx famotidine 40 mg tablet (Pepcid) 40 mg PO DAILY #30 ta bs 01/11/25 04/07/25 Rx breast pump #1 ea 01/29/25 04/07/25 Rx Last Menstrual Period: 08/12/24 Zika: Zika [...] 1 current occupational status: unemployed current occupation: 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 Date Name GA/Weeks Outcome Route Bth Weight Infant Gen Labor Lgth Anesthesia Del Locatn Provider FOB 07/18/21 Larry 40 live - full term 7lbs 7oz Male [facility] [place] Delivery Date: 07/18/21 Last Updated by: Aida Shields RN Induce d/t failure to progress naturally .. Slow progression of labor w/ decels .. Failed vacuum delivery into emergency csec HPI 34 wk ob *Doc Only* Details: BARBY CABALLERO is a 34 year old who presents for routine OB visit. OB Visit ANTONIO Calculator Estimated Delivery Date Method Current WG Current Estimate 05/19/25 Conception 34w 0d Expected Delivery Route/Plan repeat c/s Specific Issue/Plans Covid status: [] Flu vaccine: [] Tdap vaccine: [] Rhogam: [] LARC form signed: [] Problem list reviewed and updated with the most current plan of care details and appropriate ordersplaced. Relevant counseling for the gestational age provided. Continue routine care and follow up unless otherwise noted in visit notes/problem list details Initial Weight: 264 lb Date -?-?-?-?-?-?-?-?-?-?-?-?- EGA Weight BP Urine Prot -?-?-?-?-?-?-?-?-?-?-?-?- Glucose FHR FuHt Pres Dilation -?-?-?-?-?-?-?-?-?-?-?-?- Effaced St Visit Note 10/09/24 -?-?-?-?-?-?-?-?-?-?-?-?- 8w 2d 264 lb (+0 oz) 120/76 -?-?-?--?-?-?-?-?-?-?-?-?- 169 -?-?-?-?-?-?-?-?-?-?-?-?- KW-CRL cons with embryo transfer. declines NIPT had genetic testing at [facility] 11/05/24 -?-?-?-?-?-?-?-?-?-?--?-?- 12w 1d 260 lb (-4 lb) 125/89 [...] fm nreo gualr ctx cbc gct today 03/10/25 -?-?-?-?-?-?-?-?-?-?-?-?- 30w 0d 265 lb 8 oz (+1 lb 8 oz) 110/76 Negative -?-?-?-?-?-?-?-?-?-?-?-?- Negative 147 30 0 -?-?-?-?-?-?-?-?-?-?-?-?- JV- no lof, vagi nal bleeding, or dec fm. has growth scans at 34 and 38 weeks. Larc signed today JV- no lof, vaginal bleeding , or dec fm. has growth scans at 34 and 38 weeks. Larc signed today. pelvic exam performed for tightening feeling. vaginitis smear ordered. 03/26/25 -?-?-?-?-?-?-?-?-?-?-?-?- 32w 2d 267 lb 4 oz (+3 lb 4 oz) 131/82 Negative -?-?-?-?-?-?-?-?-?-?-?-?- Negative 142 38 -?-?-?-?-?-?--?-?-?-?-?-?- JV- needs weekly bpp's starting 34 weeks for bmi and IVF. no complaints. contractions stopped with treatment of yeast. 04/07/25 -?-?-?-?-?-?-?-?-?-?-?-?- 34w 0d 268 lb 4 oz (+4 lb 4 oz) 119/80 -?-?-?-?-?-?-?-?-?-?-?-?- 138 35 -?-?-?-?-?-?-?-?-?-?-?-?- JV- c/o overall itching. bile acids and cmp ordered. low suspicion for Cholestasis of however. no lof, vaginal bleeding, or dec fm. ACOG First Trimester First Trimester: Discussed Second Trimester Second Trimester: Signs and Symptoms of Labor, Selecting a care provider, Reproductive Life Planning & Contreception, Care Planning, Depression/Anxiety and Intimate Partner Violence; Discussed Tobacco Cessation Third Trimester Third Trimester: Pain Management Plans, Labor support person(s), Immediate Larc, Signs and Symptoms of Preeclampsia, Infant Feeding No , [place] Education and Family Medical Leave or Disability Forms Coding Level of Care Code OB Routine Diagnoses Abnormal glucose affecting O99.810 H/O section Z98.891 AMA (advanced maternal age) multigravida 35+ O09.529 Conceived by in vitro fertilization Z78.9 Family history of genetic disorder Z84.89 Marijuana use F12.90 Obesity affecting O99.210 Rh negative status during O26.899; Z67.91 Supervision of high-risk O09.90 34 weeks gestation of Z3A.34 Weeks of gestation: 34 weeks Sleep apnea G47.30 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 desires repeat C/S: RLTCS 05/12/25 JV. (3) AMA (advanced maternal age) multigravida 35+: Status: Acute (4) Conceived by in vitro fertilization: Status: Acute Comment: growth and NSTs at 36 weeks. deliver by 39. Transferred male embryo - embryo tested (5) Family history of genetic disorder: Status: Acute Comment: FOB w/ Shaw Muscular Dystrophy (X Chromosome linked) FOB adopted with limited medical history (6) Marijuana use: Status: Acute Comment: Last use: May 2024; Pt informed of random tox screens (7) Obesity affecting : Status: Acute Comment: BMI 47.5; twice weekly BPPs at 34 weeks-HgBA1C ordered (8) Rh negative status during : Status: Acute Comment: B-, Needs Rhogam @ 28 weeks (9) Supervision of high-risk : Status: Acute Comment: PRR, , ANTONIO 05/19/25,boy PC: Larry, : [place] (10) : Status: Acute Qualifiers: Weeks of gestation: 34 weeks Qualified Code(s): Z3A.34 - 34 weeks gestation of Comment: Discussed genetic/carrier testing - declines d/t embryo tested prior to transfer, nl anatomy. Fetalecho normal. (11) Sleep apnea: Status: Acute (12) Infertility associated with anovulation: Status: Acute (13) GERD (gastroesophageal reflux disease): Status: Acute Qualifiers: Esophagitis presence: without esophagitis Qualified Code(s): K21.9 - Gastro- esophageal reflux disease without esophagitis (14) Depression with anxiety: Status: Acute (15) PCOS (polycystic ovarian syndrome): Status: Acute Orders: Orders Comprehensive Metabolic Profil Today L29.9 - Pruritus, unspecified 04/07/25 1055 e Shanita DO> Date _ Edel Bullock DO [facility] Signature: Date (if applicable) CC: ~ [facility]06-27-2025 Progress [facility] [address] [place] [address], [address] [place] [address] OFFICE VISIT Date of Service: 03/26/25 MR#: [id number] Acct: [id number] Name: BARBY CABALLERO Rep #: [id number] : 1990 Provider: Dr. Kellen Bullock DO Age/Sex: 34/F [place] [facility] [place] Status: Signed Intake Vital Signs 10/09/24 14:36 03/10/25 14:28 03/26/25 14:15 03/26/25 14:17 Height 5 ft 2 in 5 ft 2 in 5 ft 2 in 5 ft 2 in Weight: 267 lb 4 oz BMI 48.9 BP 131/82 H Intake Visit Reasons: *rs 8/7 appt* 32 WK OB *DOC ONLY* Supervisor Agency Appointments Required: No Is patient in pain?: No Allergies No Known Allergies Allergy (Verified 03/26/25 14:13) Medications ?Medication ?Instructions ?Recorded ?Confirmed ?Type escitalopram oxalate 10 mg tablet 10 mg PO DAILY #30 t abs 07/20/24 03/26/25 Rx (Lexapro) docosahexaenoic acid 200 mg 200 mg PO DAILY #90 caps 1 03/26/25 Rx capsule ( DHA) levothyroxine 25 mcg tablet 25 mcg PO QDAY #90 tabs 03/26/25 Rx (Synthroid) promethazine 25 mg tablet 25 mg PO Q6H PRN headache #3 0 tabs 12/17/24 03/26/25 Rx famotidine 40 mg tablet (Pepcid) 40 mg PO DAILY #30 ta bs 01/11/25 03/26/25 Rx breast pump #1 ea 01/29/25 03/26/25 Rx Last Menstrual Period: 08/12/24 Zika: Zika [...] 1 current occupational status: unemployed current occupation: 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 Slow progression of labor w/ decels .. Failed vacuum delivery into emergency csec HPI *rs 05/06 appt* 32 WK OB *DOC ONLY* Details: BARBY CABALLERO is a 34 year old who presents for routine OB visit. OB Visit ANTONIO Calculator Estimated Delivery Date Method Current WG Current Estimate 05/19/25 Conception 32w 2d Expected Delivery Route/Plan repeat c/s Specific Issue/Plans Covid status: [] Flu vaccine: [] Tdap vaccine: [] Rhogam: [] LARC form signed: [] Problem list reviewed and updated with the most current plan of care details and appropriate ordersplaced. Relevant counseling for the gestational age provided. [...] 4 oz (-2 lb 12 oz) 114/81 -?-?-?--?-?-?-?-?-?-?-?-?- 134 -?-?-?-?-?-?-?-?-?-?-?-?- jV- working with counselor about ptsd from last delivery. worried about her weight. we talked this through and reassured. no cramping or dec fm or lof. 02/26/25 -?-?-?-?-?-?-?-?-?-?-?-?- 28w 2d 264 lb 2 oz (+2 oz) 102/66 Negative -?-?-?-?-?-?-?-?-?-?-?-?- Negative 155 30 -?-?-?-?-?-?-?-?-?-?-?-?- Sm- no vb lof go od fm nreo gualr ctx cbc gct today 03/10/25 -?-?-?-?-?-?-?-?-?-?-?-?- 30w 0d 265 lb 8 oz (+1 lb 8 oz) 110/76 Negative -?-?-?-?-?-?-?-?-?-?-?-?- Negative 147 30 0 -?-?-?-?-?-?-?-?-?-?-?-?- JV- no lof, vagi nal bleeding, or dec fm. has growth scans at 34 and [address] [facility] signed today JV- no lof, vaginal bleeding , or dec fm. has growth scans at 34 and [address] [facility] signed today. pelvic exam performed for tightening feeling. vaginitis smear ordered. 03/26/25 -?-?-?-?-?-?-?-?-?-?-?-?- 32w 2d 267 lb 4 oz (+3 lb 4 oz) 131/82 -?-?--?-?-?-?-?-?-?-?-?-?- 142 38 -?-?-?-?-?-?-?-?-?-?-?-?- J- needs weekly bpp's starting 34 weeks for bmi and IVF. no complaints. contractions stopped with treatment of yeast. ACOG First Trimester First Trimester: Discussed Second Trimester Second Trimester: Signs and Symptoms of Labor, Selecting a care provider, Reproductive Life Planning & Contreception, Care Planning, Depression/Anxiety and Intimate Partner Violence; Discussed Tobacco Cessation Third Trimester Third Trimester: Pain Management Plans, Labor support person(s), Immediate Larc, Signs and Symptoms of Preeclampsia, Infant Feeding No , Education and Family Medical Leave or Disability Forms Coding Level of Care Code OB Routine Diagnoses Abnormal glucose affecting O99.810 H/O section Z98.891 AMA (advanced maternal age) multigravida 35+ O09.529 Conceived by in vitro fertilization Z78.9 Family history of genetic disorder Z84.89 Marijuana use F12.90 Obesity affecting O99.210 Rh negative status during O26.899; Z67.91 Supervision of high-risk O09.90 32 weeks gestation of Z3A.32 Weeks of gestation: 32 weeks Sleep apnea G47.30 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 desires repeat C/S: RLTCS 05/12/25 JV. (3) AMA (advanced maternal age) multigravida 35+: Status: Acute (4) Conceived by in vitro fertilization: Status: Acute Comment: growth and NSTs at 36 weeks. deliver by 39. Transferred male embryo - embryo tested (5) Family history of genetic disorder: Status: Acute Comment: FOB w/ Shaw Muscular Dystrophy (X Chromosome linked) FOB adopted with limited medical history (6) Marijuana use: Status: Acute Comment: Last use: May 2024; Pt informed of random tox screens (7) Obesity affecting : Status: Acute Comment: BMI 47.5; BPPs at 34 weeks-HgBA1C ordered (8) Rh negative status during : Status: Acute Comment: B-, Needs Rhogam @ 28 weeks (9) Supervision of high-risk : Status: Acute Comment: PRR, , ANTONIO 05/19/25,boy PC: Larry, : [place] (10) : Status: Acute Qualifiers: Weeks of gestation: 32 weeks Qualified Code(s): Z3A.32 - 32 weeks gestation of Comment: Discussed genetic/carrier testing - declines d/t embryo tested prior to transfer, nl anatomy. Fetalecho normal. (11) Sleep apnea: Status: Acute (12) Infertility associated with anovulation: Status: Acute (13) GERD (gastroesophageal reflux disease): Status: Acute Qualifiers: Esophagitis presence: without esophagitis Qualified Code(s): K21.9 - Gastro- esophageal reflux disease without esophagitis (14) Depression with anxiety: Status: Acute (15) PCOS (polycystic ovarian syndrome): Status: Acute Orders: Orders POC Urinalysis 2 Dip (Clinic) Today 03/26/25 1436 e Shanita DO> Date _ Edel Bullock DO Cosign Signature: Date (if applicable) CC: ~ [facility] [id number] Progress note Author Edel Diehl [facility] Note Date/Time March 26, 2025 2:36 pm [facility] [address] [place] [address], [address] [place] [address] OFFICE VISIT Date of Service: 03/26/25 MR#: [id number] Acct: [id number] Name: BARBY CABALLERO Rep #: [id number] : 1990 Provider: Dr. Kellen Bullock DO Age/Sex: 34/F Location[place] [facility] [place] Status: Signed Intake Vital Signs 10/09/24 14:36 03/10/25 14:28 03/26/25 14:15 03/26/25 14:17 Height 5 ft 2 in 5 ft 2 in 5 ft 2 in 5 ft 2 in Weight: 267 lb 4 oz BMI 48.9 BP 131/82 H Intake Visit Reasons: *rs 8/7 appt* 32 WK OB *DOC ONLY* Supervisor Agency Appointments Required: No Is patient in pain?: No Allergies No Known Allergies Allergy (Verified 03/26/25 14:13) Medications ?Medication ?Instructions ?Recorded ?Confirmed ?Type escitalopram oxalate 10 mg tablet 10 mg PO DAILY #30 t abs 07/20/24 03/26/25 Rx (Lexapro) docosahexaenoic acid 200 mg 200 mg PO DAILY #90 caps 1 03/26/25 Rx capsule ( DHA) levothyroxine 25 mcg tablet 25 mcg PO QDAY #90 tabs 03/26/25 Rx (Synthroid) promethazine 25 mg tablet 25 mg PO Q6H PRN headache #3 0 tabs 12/17/24 03/26/25 Rx famotidine 40 mg tablet (Pepcid) 40 mg PO DAILY #30 ta bs 01/11/25 03/26/25 Rx breast pump #1 ea 01/29/25 03/26/25 Rx Last Menstrual Period: 08/12/24 Zika: Zika [...] 1 current occupational status: unemployed current occupation: 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 Date Name GA/Weeks Outcome Route Bth Weight Gen Labor Lgth Anesthesia Del Locatn Provider FOB 07/18/21 Larry 40 live - full term 7lbs 7oz Male [facility] [place] Delivery Date: 07/18/21 Last Updated by: Aida Shields RN Induce d/t failure to progress naturally .. Slow progression of labor w/ decels .. Failed vacuum delivery into emergency csec HPI *rs 05/06 appt* 32 WK OB *DOC ONLY* Details: BARBY CABALLERO is a 34 year old who presents for routine OB visit. OB Visit ANTONIO Calculator Estimated Delivery Date Method Current WG Current Estimate 05/19/25 Conception 32w 2d Expected Delivery Route/Plan repeat c/s Specific [...] transfer. declines NIPT had genetic testing at [facility] 11/05/24 -?-?-?-?-?-?-?-?-?-?-?-?- 12w 1d 260 lb (-4 [...] 4 oz (-2 lb 12 oz) 114/81 -?-?-?--?-?-?-?-?-?-?-?-?- 134 -?-?-?-?-?-?-?-?-?-?-?-?- jV- working with counselor about ptsd from last delivery. worried about her weight. we talked this through and reassured. no cramping or dec fm or lof. 02/26/25 -?-?-?-?-?-?-?-?-?-?-?-?- 28w 2d 264 lb 2 oz (+2 oz) 102/66 Negative -?-?-?-?-?-?-?-?-?-?-?-?- Negative 155 30 -?-?-?-?-?-?-?-?-?-?-?-?- Sm- no vb lof go od fm nreo gualr ctx cbc gct today 03/10/25 -?-?-?-?-?-?-?-?-?-?-?-?- 30w 0d 265 lb 8 oz (+1 lb 8 oz) 110/76 Negative -?-?-?-?-?-?-?-?-?-?-?-?- Negative 147 30 0 -?-?-?-?-?-?-?-?-?-?-?-?- JV- no lof, vagi nal bleeding, or dec fm. has growth scans at 34 and [address] [facility] signed today JV- no lof, vaginal bleeding , or dec fm. has growth scans at 34 and [address] [facility] signed today. pelvic exam performed for tightening feeling. vaginitis smear ordered. 03/26/25 -?-?-?-?-?-?-?-?-?-?-?-?- 32w 2d 267 lb 4 oz (+3 lb 4 oz) 131/82 -?-?--?-?-?-?-?-?-?-?-?-?- 142 38 -?-?-?-?-?-?-?-?-?-?-?-?- JV- needs weekly bpp's starting 34 weeks for bmi and IVF. no complaints. contractions stopped with treatment of yeast. ACOG First Trimester First Trimester: Discussed Second Trimester Second Trimester: Signs and Symptoms of Labor, Selecting a care provider, Reproductive Life Planning & Contreception, Care Planning, Depression/Anxiety and Intimate Partner Violence; Discussed Tobacco Cessation Third Trimester Third Trimester: Pain Management Plans, Labor support person(s), Immediate Larc, Signs and Symptoms of Preeclampsia, Feeding No , [place] Education and Family Medical Leave or Disability Forms Coding Level of Care Code OB Routine Diagnoses Abnormal glucose affecting O99.810 H/O section Z98.891 AMA (advanced maternal age) multigravida 35+ O09.529 Conceived by in vitro fertilization Z78.9 Family history of genetic disorder Z84.89 Marijuana use F12.90 Obesity affecting O99.210 Rh negative status during O26.899; Z67.91 Supervision of high-risk O09.90 32 weeks gestation of Z3A.32 Weeks of gestation: 32 weeks Sleep apnea G47.30 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 desires repeat C/S: RLTCS 05/12/25 JV. (3) AMA (advanced maternal age) multigravida 35+: Status: Acute (4) Conceived by in vitro fertilization: Status: Acute Comment: growth and NSTs at 36 weeks. deliver by 39. Transferred male embryo - embryo tested (5) Family history of genetic disorder: Status: Acute Comment: FOB w/ Shaw Muscular Dystrophy (X Chromosome linked) FOB adopted with limited medical history (6) Marijuana use: Status: Acute Comment: Last use: May 2024; Pt informed of random tox screens (7) Obesity affecting : Status: Acute Comment: BMI 47.5; BPPs at 34 weeks-HgBA1C ordered (8) Rh negative status during : Status: Acute Comment: B-, Needs Rhogam @ 28 weeks (9) Supervision of high-risk : Status: Acute Comment: PRR, , ANTONIO 05/19/25,boy PC: Larry, : [place] (10) : Status: Acute Qualifiers: Weeks of gestation: 32 weeks Qualified Code(s): Z3A.32 - 32 weeks gestation of Comment: Discussed genetic/carrier testing - declines d/t embryo tested prior to transfer, nl anatomy. echo normal. (11) Sleep apnea: Status: Acute (12) Infertility associated with anovulation: Status: Acute (13) GERD (gastroesophageal reflux disease): Status: Acute Qualifiers: Esophagitis presence: without esophagitis Qualified Code(s): K21.9 - Gastro-esophageal reflux disease without esophagitis (14) Depression with anxiety: Status: Acute (15) PCOS (polycystic ovarian syndrome): Status: Acute Orders: Orders POC Urinalysis 2 Dip (Clinic) Today 03/26/25 1436 <Electronically signed by Edel Quintana DO> Date _ Edel Bullock DO [facility] Signature: Date (if applicable) CC: ~ [facility] Work Phone: 1(216) 498-891805-30-2025 Progress [place] [facility] [address] [place] [address], [address] [place] [address] OFFICE VISIT Date of Service: 02/26/25 MR#: [id number] Acct: [id number] Name: BARBY CABALLERO Rep #: [id number] : 1990 Provider: Dr. Frank Lao MD Age/Sex: 34/F Location[facility] Status: Signed Intake Vital Signs 10/09/24 14:36 01/01/25 10:10 01/29/25 10:30 02/26/25 08:45 Height 5 ft 2 in 5 ft 2 in 5 ft 2 in 5 ft 2 in Weight: 262 lb 2 oz 261 lb 4 oz 264 lb 2 oz BMI 47.9 47.7 48.3 BP 125/82 H 114/81 H 102/66 Intake Visit Reasons: 28 WK OB/GLUCOSE *DOC ONLY* Supervisor Agency Appointments Required: No Is patient in pain?: No [...] 1 current occupational status: unemployed current occupation: 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 Date Name GA/Weeks Outcome Route Bth Weight Gen Labor Lgth Anesthesia Del Locatn Provider FOB 07/18/21 Larry 40 live - full term 7lbs 7oz Male [facility] [place] Delivery Date: 07/18/21 Last [...] current plan of care details and appropriate ordersplaced. Relevant counseling for the gestational age provided. [...] transfer. declines NIPT had genetic testing at [facility] 11/05/24 -?-?-?-?-?-?-?-?-?-?-?-?- 12w 1d 260 lb (-4 [...] Immediate Larc, Signs and Symptoms of Preeclampsia, Feeding No , [place] Education and Family Medical Leave or Disability Forms Office Procedures Injections Is this a patient provided medication?: No Office Meds RhoGAM Ultra-Filtered PLUS 1,500 unit (300 mcg) intramuscular syringe Performing Provider: Apple Lao MD Performing Location: [facility] Administered by: Aziza Olson on 02/26/25 08:56 Dose Route Admin Location Dispensed Lot Number Expiration Date [employer]DC [employer] 1,500 unit IM right gluteal 1 ea [id number] 03/05/27 [id number] [email or web address] [facility] Results POC Urinalysis 2 Dip (Clinic) [...] Plan (1) H/O section: Status: Acute Comment: [id number]. desires repeat C/S (2) AMA (advanced maternal [...] embryo tested prior to transfer, nl anatomy. Fetalecho normal. (10) Sleep apnea: Status: Acute (11) Infertility associated with anovulation: Status: Acute (12) GERD (gastroesophageal reflux disease): Status: Acute Qualifiers: Esophagitis presence: without esophagitis Qualified Code(s): K21.9 - Gastro- esophageal reflux disease without esophagitis (13) Depression with anxiety: Status: Acute (14) PCOS (polycystic ovarian syndrome): Status: Acute Orders: Orders Rhogam Injection Today O26.899 - Other specified related conditions, unspecified trimester, Z67.91 - Unspecified blood type, Rh negative POC Urinalysis 2 Dip (Clinic) Today 02/26/25 0938 stephanie WOLFE> Date _ Apple Lao MD Cosigner Signature: Date (if applicable) CC: ~ [facility]05-02-2025 Evaluation note* Diagnosis Onset Date Resolution Status Admit Date AMA (advanced maternal age) multigravida 35+ acute January 29, 2025 1 0:15am Conceived by in vitro fertilization acute January 29, 2025 10 :15am Depression with anxiety acute 2024 10:15am Family history of genetic disorder acute January 29, 2025 10 :15am GERD (gastroesophageal reflu x disease) acute January 29, 2025 10 :15am H/O section acute January 29, 2025 10:15am Infertility associated with anovulation acute January 29, 2025 10 :15am Marijuana use acute January 29 10:15am Obesity affecting acute January 29, 2025 10:15am PCOS (polycystic ovarian syndrome) acute January 29, 2025 10 :15am acute January 29, 2025 10:15am Rh negative status during acute January 29, 2025 10 :15am Sleep apnea acute January 29, 2025 10:15am Supervision of high-risk acute January 29, 2025 10 :15am AMA (advanced maternal age) multigravida 35+ acute February 26, 2025 8:34am Conceived by in vitro fertilization acute February 26, 2025 8 :34am Depression with anxiety acute M 2024 8:34am Family history of genetic disorder acute February 26, 2025 8 :34am GERD (gastroesophageal reflu x disease) acute February 26, 2025 8 :34am H/O section acute February 26, 2025 8:34am Infertility associated with anovulation acute February 26, 2025 8 :34am Marijuana use acute February 26, 2 025 8:34am Obesity affecting acute February 26, 2025 8:34am PCOS (polycystic ovarian syndrome) acute February 26, 2025 8 :34am acute February 26, 2025 8:34am Rh negative status during acute February 26, 2025 8 :34am Sleep apnea acute February 26 8:34am Supervision of high-risk acute February 26, 2025 8 :34am Abnormal glucose affecting acute March 10, 2025 2:11pm AMA (advanced maternal age) multigravida 35+ acute March 10, 2025 2:11pm Conceived by in vitro fertilization acute March 10, 2025 2:11pm Depression with anxiety acute J 2024 2:11pm Family history of genetic disorder acute March 10, 2025 2:11pm GERD (gastroesophageal reflu x disease) acute March 10, 2025 2:11pm H/O section acute March 10, 2025 2:11pm Infertility associated with anovulation acute March 10, 2025 2:11pm Marijuana use acute March 10, 2025 2:11pm Obesity affecting acute March 10, 2025 2:11pm PCOS (polycystic ovarian syndrome) acute Al[place] 11th, 2025 2:11pm acute March 10 2:11pm Rh negative status during acute March 10, 2025 2:11pm Sleep apnea acute March 10 2:11pm Supervision of high-risk acute March 10, 2025 2:11pm Abnormal glucose affecting acute March 26, 2025 2:10pm AMA (advanced maternal age) multigravida 35+ acute March 26, 2025 2:10pm Conceived by in vitro fertilization acute March 26, 2025 2:10pm Depression with anxiety acute J [facility] 2024 2:10pm Family history of genetic disorder acute March 26, 2025 2:10pm GERD (gastroesophageal reflu x disease) acute March 26, 2025 2:10pm H/O section acute March 26, 2025 2:10pm Infertility associated with anovulation acute March 26, 2025 2:10pm Marijuana use acute March 26, 2025 2:10pm Obesity affecting acute March 26, 2025 2:10pm PCOS (polycystic ovarian syndrome) acute March 26, 2025 2:10pm acute March 26 2:10pm Rh negative status during acute March 26, 2025 2:10pm Sleep apnea acute March 26 2:10pm Supervision of high-risk acute March 26, 2025 2:10pm Abnormal glucose affecting acute April 07, 2025 9 :54am AMA (advanced maternal age) multigravida 35+ acute April 07, 2025 9:54am Conceived by in vitro fertilization acute April 07, 2025 9 :54am Depression with anxiety acute J [email or web address] 9:54am Family history of genetic disorder acute April 07, 2025 9 :54am GERD (gastroesophageal reflu x disease) acute April 07, 2025 9 :54am H/O section acute April 07, 2025 9:54am Infertility associated with anovulation acute April 07, 2025 9 :54am Marijuana use acute April 07, 025 9:54am Obesity affecting acute April 07, 2025 9:54am PCOS (polycystic ovarian syndrome) acute April 07, 2025 9 :54am acute April 07, 2025 9:54am Rh negative status during acute April 07, 2025 9 :54am Sleep apnea acute April 07 9:54am Supervision of high-risk acute April 07, 2025 9 :54am Abnormal glucose affecting acute April 19, 2025 8:47am AMA (advanced maternal age) multigravida 35+ acute April 19, 2025 8:47am Conceived by in vitro fertilization acute April 19, 2025 8:47am Family history of genetic disorder acute April 19, 2025 8:47am H/O section acute April 19, 2025 8:47am Infertility associated with anovulation acute April 19, 2025 8:47am Itching acute April 19 8:47am Marijuana use acute April 19, 2025 8:47am Obesity affecting acute April 19, 2025 8:47am acute April 19 8:47am Rh negative status during acute April 19, 2025 8:47am Sleep apnea acute April 19 8:47am Supervision of high-risk acute April 19, 2025 8:47am H/O biophysical profil e with non-stress test deleted April 19, 2025 8:47am Abnormal glucose affecting acute April 20, 2025 1:59pm AMA (advanced maternal age) multigravida 35+ acute April 20, 2025 1:59pm Conceived by in vitro fertilization acute April 20, 2025 1:59pm Depression with anxiety acute J 2024 1:59pm Family history of genetic disorder acute April 20, 2025 1:59pm GERD (gastroesophageal reflu x disease) acute April 20, 2025 1:59pm H/O section acute April 20, 2025 1:59pm Infertility associated with anovulation acute April 20, 2025 1:59pm Itching acute April 20 1:59pm Marijuana use acute April 20, 2025 1:59pm Obesity affecting acute April 20, 2025 1:59pm PCOS (polycystic ovarian syndrome) acute April 20, 2025 1:59pm acute April 20 1:59pm Rh negative status during acute April 20, 2025 1:59pm Sleep apnea acute April 20 1:59pm Supervision of high-risk acute April 20, 2025 1:59pm Abnormal glucose affecting acute April 28, 2025 2:01pm AMA (advanced maternal age) multigravida 35+ acute April 28, 2025 2:01pm Conceived by in vitro fertilization acute April 28, 2025 2:01pm Depression with anxiety acute J [email or web address] 2:01pm Family history of genetic disorder acute April 28, 2025 2:01pm GERD (gastroesophageal reflu x disease) acute April 28, 2025 2:01pm H/O section acute April 28, 2025 2:01pm Infertility associated with anovulation acute April 28, 2025 2:01pm Itching acute April 28 2:01pm Marijuana use acute April 28, 2025 2:01pm Obesity affecting acute April 28, 2025 2:01pm PCOS (polycystic ovarian syndrome) acute April 28, 2025 2:01pm acute April 28 2:01pm Rh negative status during acute April 28, 2025 2:01pm Sleep apnea acute April 28 2:01pm Supervision of high-risk acute April 28, 2025 2:01pm Abnormal glucose affecting acute May 06, 2025 2:05pm AMA (advanced maternal age) multigravida 35+ acute May 06 2:05pm Conceived by in vitro fertilization acute May 06, 2025 2:05pm Depression with anxiety acute A [email or web address] 2:05pm Family history of genetic disorder acute May 06, 2025 2:05pm GBS (group B Streptococcus carrier), +RV culture, currently acute May 06, 2 025 2:05pm GERD (gastroesophageal reflu x disease) acute May 06, 2025 2:05pm H/O section acute 2024 2:05pm Infertility associated with anovulation acute May 06, 2025 2:05pm Itching acute May 06 2:05pm Marijuana use acute May 06, 2025 2:05pm Obesity affecting acute May 06, 2025 2:05pm PCOS (polycystic ovarian syndrome) acute May 06, 2025 2:05pm acute May 06 2:05pm Rh negative status during acute May 06, 2025 2:05pm Sleep apnea acute May 06, 2 025 2:05pm Supervision of high-risk acute May 06, 2025 2:05pm [facility] Work Phone: 1(139) 408-620604-04-2025 Evaluation note* Diagnosis Onset Date Resolution Status Admit Date AMA (advanced maternal age) multigravida 35+ acute January 01, 2025 10:03am Conceived by in vitro fertilization acute January 01, 2025 10:03am Depression with anxiety acute A pril 2024 10:03am Family history of genetic disorder acute January 01, 2025 10:03am GERD (gastroesophageal reflu x disease) acute January 01, 2025 10:03am H/O section acute Apri 2024 10:03am Infertility associated with anovulation acute [...] maternal age) multigravida 35+ acute January 29, 2025 1 0:15am Conceived by in vitro fertilization acute January 29, 2025 10 :15am Depression with anxiety acute M ay 2024 10:15am Family history of genetic disorder acute January 29, 2025 10 :15am GERD (gastroesophageal reflu x disease) acute January 29, 2025 10 :15am H/O section acute January 29, 2025 10:15am Infertility associated with anovulation acute January 29, 2025 10 :15am Marijuana use acute January 29 10:15am Obesity affecting acute January 29, 2025 10:15am PCOS (polycystic ovarian syndrome) acute January 29, 2025 10 :15am acute January 29, 2025 10:15am Rh negative status during acute January 29, 2025 10 :15am Sleep apnea acute January 29, 2025 10:15am Supervision of high-risk acute January 29, 2025 10 :15am AMA (advanced maternal age) multigravida 35+ acute February 26, 2025 8:34am Conceived by in vitro fertilization acute February 26, 2025 8 :34am Depression with anxiety acute M 2024 8:34am Family history of genetic disorder acute February 26, 2025 8 :34am GERD (gastroesophageal reflu x disease) acute February 26, 2025 8 :34am H/O section acute February 26, 2025 8:34am Infertility associated with anovulation acute February 26, 2025 8 :34am Marijuana use acute February 26, 025 8:34am Obesity affecting acute February 26, 2025 8:34am PCOS (polycystic ovarian syndrome) acute February 26, 2025 8 :34am acute February 26, 2025 8:34am Rh negative status during acute February 26, 2025 8 :34am Sleep apnea acute February 26 8:34am Supervision of high-risk acute February 26, 2025 8 :34am Abnormal glucose affecting acute March 10, 2025 2:11pm AMA (advanced maternal age) multigravida 35+ acute March 10, 2025 2:11pm Conceived by in vitro fertilization acute March 10, 2025 2:11pm Depression with anxiety acute J [facility] 2024 2:11pm Family history of genetic disorder acute March 10, 2025 2:11pm GERD (gastroesophageal reflu x disease) acute March 10, 2025 2:11pm H/O section acute March 10, 2025 2:11pm Infertility associated with anovulation acute March 10, 2025 2:11pm Marijuana use acute March 10, 2025 2:11pm Obesity affecting acute March 10, 2025 2:11pm PCOS (polycystic ovarian syndrome) acute March 10, 2025 2:11pm acute March 10 2:11pm Rh negative status during acute March 10, 2025 2:11pm Sleep apnea acute March 10 2:11pm Supervision of high-risk acute March 10, 2025 2:11pm Abnormal glucose affecting acute March 26, 2025 2:10pm AMA (advanced maternal age) multigravida 35+ acute March 26, 2025 2:10pm Conceived by in vitro fertilization acute Al[place] 27th, 2025 2:10pm Depression with anxiety acute J une 2024 2:10pm Family history of genetic disorder acute March 26, 2025 2:10pm GERD (gastroesophageal reflu x disease) acute March 26, 2025 2:10pm H/O section acute March 26, 2025 2:10pm Infertility associated with anovulation acute March 26, 2025 2:10pm Marijuana use acute March 26, 2025 2:10pm Obesity affecting acute March 26, 2025 2:10pm PCOS (polycystic ovarian syndrome) acute March 26, 2025 2:10pm acute March 26 2:10pm Rh negative status during acute March 26, 2025 2:10pm Sleep apnea acute March 26 2:10pm Supervision of high-risk acute March 26, 2025 2:10pm Abnormal glucose affecting acute April 07, 2025 9 :54am AMA (advanced maternal age) multigravida 35+ acute April 07, 2025 9:54am Conceived by in vitro fertilization acute April 07, 2025 9 :54am Depression with anxiety acute J gamaliel2024 9:54am Family history of genetic disorder acute April 07, 2025 9 :54am GERD (gastroesophageal reflu x disease) acute April 07, 2025 9 :54am H/O section acute April 07, 2025 9:54am Infertility associated with anovulation acute April 07, 2025 9 :54am Marijuana use acute April 07, 2 025 9:54am Obesity affecting acute April 07, 2025 9:54am PCOS (polycystic ovarian syndrome) acute April 07, 2025 9 :54am acute April 07, 2025 9:54am Rh negative status during acute April 07, 2025 9 :54am Sleep apnea acute April 07 9:54am Supervision of high-risk acute April 07, 2025 9 :54am [facility] Work Phone: [phone] 145-842304-04-2025 Evaluation note* Diagnosis Onset Date Resolution Status Admit Date AMA (advanced maternal age) multigravida 35+ acute January 01, 2025 10:03am Conceived by in vitro fertilization acute January 01, 2025 10:03am Depression with anxiety acute A pril 2024 10:03am Family history of genetic disorder acute January 01, 2025 10:03am GERD (gastroesophageal reflu x disease) acute January 01, 2025 10:03am H/O [...] maternal age) multigravida 35+ acute January 29, 2025 1 0:15am Conceived by in vitro fertilization acute January 29, 2025 10 :15am Depression with anxiety acute M ay 2024 10:15am Family history of genetic disorder acute January 29, 2025 10 :15am GERD (gastroesophageal reflu x disease) acute January 29, 2025 10 :15am H/O section acute January 29, 2025 10:15am Infertility associated with anovulation acute January 29, 2025 10 :15am Marijuana use acute January 29 10:15am Obesity affecting acute January 29, 2025 10:15am PCOS (polycystic ovarian syndrome) acute January 29, 2025 10 :15am acute January 29, 2025 10:15am Rh negative status during acute January 29, 2025 10 :15am Sleep apnea acute January 29, 2025 10:15am Supervision of high-risk acute January 29, 2025 10 :15am AMA (advanced maternal age) multigravida 35+ acute February 26, 2025 8:34am Conceived by in vitro fertilization acute February 26, 2025 8 :34am Depression with anxiety acute M ay 2024 8:34am Family history of genetic disorder acute February 26, 2025 8 :34am GERD (gastroesophageal reflu x disease) acute February 26, 2025 8 :34am H/O section acute February 26, 2025 8:34am Infertility associated with anovulation acute February 26, 2025 8 :34am Marijuana use acute February 26, 2 025 8:34am Obesity affecting acute February 26, 2025 8:34am PCOS (polycystic ovarian syndrome) acute February 26, 2025 8 :34am acute February 26, 2025 8:34am Rh negative status during acute February 26, 2025 8 :34am Sleep apnea acute February 26 8:34am Supervision of high-risk acute February 26, 2025 8 :34am Abnormal glucose affecting acute March 10, 2025 2:11pm AMA (advanced maternal age) multigravida 35+ acute March 10, 2025 2:11pm Conceived by in vitro fertilization acute March 10, 2025 2:11pm Depression with anxiety acute J [facility] 2024 2:11pm Family history of genetic disorder acute March 10, 2025 2:11pm GERD (gastroesophageal reflu x disease) acute March 10, 2025 2:11pm H/O section acute March 10, 2025 2:11pm Infertility associated with anovulation acute March 10, 2025 2:11pm Marijuana use acute March 10, 2025 2:11pm Obesity affecting acute March 10, 2025 2:11pm PCOS (polycystic ovarian syndrome) acute March 10, 2025 2:11pm acute March 10 2:11pm Rh negative status during acute March 10, 2025 2:11pm Sleep apnea acute March 10 2:11pm Supervision of high-risk acute March 10, 2025 2:11pm Abnormal glucose affecting acute March 26, 2025 2:10pm AMA (advanced maternal age) multigravida 35+ acute March 26, 2025 2:10pm Conceived by in vitro fertilization acute March 26, 2025 2:10pm Depression with anxiety acute J [facility] 2024 2:10pm Family history of genetic disorder acute March 26, 2025 2:10pm GERD (gastroesophageal reflu x disease) acute March 26, 2025 2:10pm H/O section acute March 26, 2025 2:10pm Infertility associated with anovulation acute March 26, 2025 2:10pm Marijuana use acute Al[place] 27th, 2025 2:10pm Obesity affecting acute March 26, 2025 2:10pm PCOS (polycystic ovarian syndrome) acute March 26, 2025 2:10pm acute March 26 2:10pm Rh negative status during acute March 26, 2025 2:10pm Sleep apnea acute March 26 2:10pm Supervision of high-risk acute March 26, 2025 2:10pm Abnormal glucose affecting acute April 07, 2025 9 :54am AMA (advanced maternal age) multigravida 35+ acute April 07, 2025 9:54am Conceived by in vitro fertilization acute April 07, 2025 9 :54am Depression with anxiety acute 2024 9:54am Family history of genetic disorder acute April 07, 2025 9 :54am GERD (gastroesophageal reflu x disease) acute April 07, 2025 9 :54am H/O section acute April 07, 2025 9:54am Infertility associated with anovulation acute April 07, 2025 9 :54am Marijuana use acute April 07, 9:54am Obesity affecting acute April 07, 2025 9:54am PCOS (polycystic ovarian syndrome) acute April 07, 2025 9 :54am acute April 07, 2025 9:54am Rh negative status during acute April 07, 2025 9 :54am Sleep apnea acute April 07 9:54am Supervision of high-risk acute April 07, 2025 9 :54am Abnormal glucose affecting acute April 19, 2025 8:47am AMA (advanced maternal age) multigravida 35+ acute April 19, 2025 8:47am Conceived by in vitro fertilization acute April 19, 2025 8:47am Family history of genetic disorder acute April 19, 2025 8:47am H/O section acute April 19, 2025 8:47am Infertility associated with anovulation acute April 19, 2025 8:47am Itching acute April 19 8:47am Marijuana use acute April 19, 2025 8:47am Obesity affecting acute April 19, 2025 8:47am acute April 19 8:47am Rh negative status during acute April 19, 2025 8:47am Sleep apnea acute April 19 8:47am Supervision of high-risk acute April 19, 2025 8:47am H/O biophysical profil e with non-stress test deleted April 19, 2025 8:47am Abnormal glucose affecting acute April 20, 2025 1:59pm AMA (advanced maternal age) multigravida 35+ acute April 20, 2025 1:59pm Conceived by in vitro fertilization acute April 20, 2025 1:59pm Depression with anxiety acute J gamaliel 2024 1:59pm Family history of genetic disorder acute April 20, 2025 1:59pm GERD (gastroesophageal reflu x disease) acute April 20, 2025 1:59pm H/O section acute April 20, 2025 1:59pm Infertility associated with anovulation acute April 20, 2025 1:59pm Itching acute April 20 1:59pm Marijuana use acute April 20, 2025 1:59pm Obesity affecting acute April 20, 2025 1:59pm PCOS (polycystic ovarian syndrome) acute April 20, 2025 1:59pm acute April 20 1:59pm Rh negative status during acute April 20, 2025 1:59pm Sleep apnea acute April 20 1:59pm Supervision of high-risk acute April 20, 2025 1:59pm [facility] Work Phone: [phone] 705-431204-04-2025 Evaluation note* Diagnosis Onset Date Resolution Status Admit Date AMA (advanced maternal age) multigravida 35+ acute January 01, 2025 10:03am Conceived by in vitro fertilization acute January 01, 2025 10:03am Depression with anxiety acute A pril 2024 10:03am Family history of genetic disorder acute January 01, 2025 10:03am GERD (gastroesophageal reflu x disease) acute January 01, 2025 10:03am H/O [...] maternal age) multigravida 35+ acute January 29, 2025 1 0:15am Conceived by in vitro fertilization acute January 29, 2025 10 :15am Depression with anxiety acute 2024 10:15am Family history of genetic disorder acute January 29, 2025 10 :15am GERD (gastroesophageal reflu x disease) acute January 29, 2025 10 :15am H/O section acute January 29, 2025 10:15am Infertility associated with anovulation acute January 29, 2025 10 :15am Marijuana use acute January 29 10:15am Obesity affecting acute January 29, 2025 10:15am PCOS (polycystic ovarian syndrome) acute January 29, 2025 10 :15am acute January 29, 2025 10:15am Rh negative status during acute January 29, 2025 10 :15am Sleep apnea acute January 29, 2025 10:15am Supervision of high-risk acute January 29, 2025 10 :15am AMA (advanced maternal age) multigravida 35+ acute February 26, 2025 8:34am Conceived by in vitro fertilization acute February 26, 2025 8 :34am Depression with anxiety acute M ay 2024 8:34am Family history of genetic disorder acute February 26, 2025 8 :34am GERD (gastroesophageal reflu x disease) acute February 26, 2025 8 :34am H/O section acute February 26, 2025 8:34am Infertility associated with anovulation acute February 26, 2025 8 :34am Marijuana use acute February 26, 2 025 8:34am Obesity affecting acute February 26, 2025 8:34am PCOS (polycystic ovarian syndrome) acute February 26, 2025 8 :34am acute February 26, 2025 8:34am Rh negative status during acute February 26, 2025 8 :34am Sleep apnea acute February 26 8:34am Supervision of high-risk acute February 26, 2025 8 :34am Abnormal glucose affecting acute March 10, 2025 2:11pm AMA (advanced maternal age) multigravida 35+ acute March 10, 2025 2:11pm Conceived by in vitro fertilization acute March 10, 2025 2:11pm Depression with anxiety acute J [facility] 2024 2:11pm Family history of genetic disorder acute March 10, 2025 2:11pm GERD (gastroesophageal reflu x disease) acute March 10, 2025 2:11pm H/O section acute March 10, 2025 2:11pm Infertility associated with anovulation acute March 10, 2025 2:11pm Marijuana use acute March 10, 2025 2:11pm Obesity affecting acute March 10, 2025 2:11pm PCOS (polycystic ovarian syndrome) acute March 10, 2025 2:11pm acute March 10 2:11pm Rh negative status during acute March 10, 2025 2:11pm Sleep apnea acute March 10 2:11pm Supervision of high-risk acute March 10, 2025 2:11pm Abnormal glucose affecting acute March 26, 2025 2:10pm AMA (advanced maternal age) multigravida 35+ acute March 26, 2025 2:10pm Conceived by in vitro fertilization acute March 26, 2025 2:10pm Depression with anxiety acute [facility] 2024 2:10pm Family history of genetic disorder acute March 26, 2025 2:10pm GERD (gastroesophageal reflu x disease) acute March 26, 2025 2:10pm H/O section acute March 26, 2025 2:10pm Infertility associated with anovulation acute March 26, 2025 2:10pm Marijuana use acute March 26, 2025 2:10pm Obesity affecting acute March 26, 2025 2:10pm PCOS (polycystic ovarian syndrome) acute March 26, 2025 2:10pm acute March 26 2:10pm Rh negative status during acute March 26, 2025 2:10pm Sleep apnea acute March 26 2:10pm Supervision of high-risk acute March 26, 2025 2:10pm Abnormal glucose affecting acute April 07, 2025 9 :54am AMA (advanced maternal age) multigravida 35+ acute April 07, 2025 9:54am Conceived by in vitro fertilization acute April 07, 2025 9 :54am Depression with anxiety acute 2024 9:54am Family history of genetic disorder acute April 07, 2025 9 :54am GERD (gastroesophageal reflu x disease) acute April 07, 2025 9 :54am H/O section acute April 07, 2025 9:54am Infertility associated with anovulation acute April 07, 2025 9 :54am Marijuana use acute April 07, 025 9:54am Obesity affecting acute April 07, 2025 9:54am PCOS (polycystic ovarian syndrome) acute April 07, 2025 9 :54am acute April 07, 2025 9:54am Rh negative status during acute April 07, 2025 9 :54am Sleep apnea acute April 07 9:54am Supervision of high-risk acute April 07, 2025 9 :54am Abnormal glucose affecting acute April 19, 2025 8:47am AMA (advanced maternal age) multigravida 35+ acute April 19, 2025 8:47am Conceived by in vitro fertilization acute April 19, 2025 8:47am Family history of genetic disorder acute April 19, 2025 8:47am H/O section acute April 19, 2025 8:47am Infertility associated with anovulation acute April 19, 2025 8:47am Itching acute April 19 8:47am Marijuana use acute April 19, 2025 8:47am Obesity affecting acute April 19, 2025 8:47am acute April 19 8:47am Rh negative status during acute April 19, 2025 8:47am Sleep apnea acute April 19 8:47am Supervision of high-risk acute April 19, 2025 8:47am H/O biophysical profil e with non-stress test deleted April 19, 2025 8:47am Abnormal glucose affecting acute April 20, 2025 1:59pm AMA (advanced maternal age) multigravida 35+ acute April 20, 2025 1:59pm Conceived by in vitro fertilization acute April 20, 2025 1:59pm Depression with anxiety acute 2024 1:59pm Family history of genetic disorder acute April 20, 2025 1:59pm GERD (gastroesophageal reflu x disease) acute April 20, 2025 1:59pm H/O section acute April 20, 2025 1:59pm Infertility associated with anovulation acute April 20, 2025 1:59pm Itching acute April 20 1:59pm Marijuana use acute April 20, 2025 1:59pm Obesity affecting acute April 20, 2025 1:59pm PCOS (polycystic ovarian syndrome) acute April 20, 2025 1:59pm acute April 20 1:59pm Rh negative status during acute April 20, 2025 1:59pm Sleep apnea acute April 20 1:59pm Supervision of high-risk acute April 20, 2025 1:59pm Abnormal glucose affecting acute April 28, 2025 2:01pm AMA (advanced maternal age) multigravida 35+ acute April 28, 2025 2:01pm Conceived by in vitro fertilization acute April 28, 2025 2:01pm Depression with anxiety acute [facility]2024 2:01pm Family history of genetic disorder acute April 28, 2025 2:01pm GERD (gastroesophageal reflu x disease) acute April 28, 2025 2:01pm H/O section acute April 28, 2025 2:01pm Infertility associated with anovulation acute April 28, 2025 2:01pm Itching acute April 28 2:01pm Marijuana use acute April 28, 2025 2:01pm Obesity affecting acute April 28, 2025 2:01pm PCOS (polycystic ovarian syndrome) acute April 28, 2025 2:01pm acute April 28 2:01pm Rh negative status during acute April 28, 2025 2:01pm Sleep apnea acute April 28 2:01pm Supervision of high-risk acute April 28, 2025 2:01pm [facility] Work Phone: [phone]) 779-809803-06-2025 Evaluation note* Diagnosis Onset Date Resolution Status Admit Date AMA (advanced maternal age) multigravida 35+ acute December 03, 2024 1:25pm Conceived by in vitro fertilization acute December 03, 2024 1:25pm Depression with anxiety acute 2024 1:25pm Family history of genetic disorder acute December 03, 2024 1:25pm GERD (gastroesophageal reflu x disease) acute December 03, 2024 1:25pm H/O section acute [place] 2024 1:25pm Infertility associated with anovulation acute December 03, 2024 1:25pm Marijuana use acute December 03, 2024 1:25pm Obesity affecting acute December 03, 2024 1:25pm PCOS (polycystic ovarian syndrome) acute December 03, 2024 1:25pm acute December 03 1:25pm Rh negative status during acute December 03, 2024 1:25pm Sleep apnea acute December 03 1:25pm Supervision of high-risk acute December 03, 2024 1:25pm AMA (advanced maternal age) multigravida 35+ acute January 01, 2025 10:03am Conceived by in vitro fertilization acute January 01, 2025 10:03am Depression with anxiety acute A pri2024 10:03am Family history of genetic disorder acute January 01, 2025 10:03am GERD (gastroesophageal reflu x disease) acute January 01, 2025 10:03am H/O [...] maternal age) multigravida 35+ acute January 29, 2025 1 0:15am Conceived by in vitro fertilization acute January 29, 2025 10 :15am Depression with anxiety acute M ay 2024 10:15am Family history of genetic disorder acute January 29, 2025 10 :15am GERD (gastroesophageal reflu x disease) acute January 29, 2025 10 :15am H/O section acute January 29, 2025 10:15am Infertility associated with anovulation acute January 29, 2025 10 :15am Marijuana use acute January 29 10:15am Obesity affecting acute January 29, 2025 10:15am PCOS (polycystic ovarian syndrome) acute January 29, 2025 10 :15am acute January 29, 2025 10:15am Rh negative status during acute January 29, 2025 10 :15am Sleep apnea acute January 29, 2025 10:15am Supervision of high-risk acute January 29, 2025 10 :15am AMA (advanced maternal age) multigravida 35+ acute February 26, 2025 8:34am Conceived by in vitro fertilization acute February 26, 2025 8 :34am Depression with anxiety acute 2024 8:34am Family history of genetic disorder acute February 26, 2025 8 :34am GERD (gastroesophageal reflu x disease) acute February 26, 2025 8 :34am H/O section acute February 26, 2025 8:34am Infertility associated with anovulation acute February 26, 2025 8 :34am Marijuana use acute February 26, 025 8:34am Obesity affecting acute February 26, 2025 8:34am PCOS (polycystic ovarian syndrome) acute February 26, 2025 8 :34am acute February 26, 2025 8:34am Rh negative status during acute February 26, 2025 8 :34am Sleep apnea acute February 26 8:34am Supervision of high-risk acute February 26, 2025 8 :34am [facility] Work Phone: [phone] Evaluation note* Diagnosis Onset Date Resolution Status Admit Date AMA (advanced maternal age) multigravida 35+ acute December 03, 2024 1:25pm Conceived by in vitro fertilization acute December 03, 2024 1:25pm Depression with anxiety acute 2024 1:25pm Family history of genetic disorder acute December 03, 2024 1:25pm GERD (gastroesophageal reflu x disease) acute December 03, 2024 1:25pm H/O section acute 2024 1:25pm Infertility associated with anovulation acute December 03, 2024 1:25pm Marijuana use acute December 03, 2024 1:25pm Obesity affecting acute December 03, 2024 1:25pm PCOS (polycystic ovarian syndrome) acute December 03, 2024 1:25pm acute December 03 1:25pm Rh negative status during acute December 03, 2024 1:25pm Sleep apnea acute December 03 1:25pm Supervision of high-risk acute December 03, 2024 1:25pm AMA (advanced maternal age) multigravida 35+ acute January 01, 2025 10:03am Conceived by in vitro fertilization acute January 01, 2025 10:03am Depression with anxiety acute A pril 2024 10:03am Family history of genetic disorder acute January 01, 2025 10:03am GERD (gastroesophageal reflu x disease) acute January 01, 2025 10:03am H/O section acute Apri 2024 10:03am Infertility associated with anovulation acute [...] maternal age) multigravida 35+ acute January 29, 2025 1 0:15am Conceived by in vitro fertilization acute January 29, 2025 10 :15am Depression with anxiety acute M ay 2024 10:15am Family history of genetic disorder acute January 29, 2025 10 :15am GERD (gastroesophageal reflu x disease) acute January 29, 2025 10 :15am H/O section acute January 29, 2025 10:15am Infertility associated with anovulation acute January 29, 2025 10 :15am Marijuana use acute January 29 10:15am Obesity affecting acute January 29, 2025 10:15am PCOS (polycystic ovarian syndrome) acute January 29, 2025 10 :15am acute January 29, 2025 10:15am Rh negative status during acute January 29, 2025 10 :15am Sleep apnea acute January 29, 2025 10:15am Supervision of high-risk acute January 29, 2025 10 :15am AMA (advanced maternal age) multigravida 35+ acute February 26, 2025 8:34am Conceived by in vitro fertilization acute February 26, 2025 8 :34am Depression with anxiety acute M 2024 8:34am Family history of genetic disorder acute February 26, 2025 8 :34am GERD (gastroesophageal reflu x disease) acute February 26, 2025 8 :34am H/O section acute February 26, 2025 8:34am Infertility associated with anovulation acute February 26, 2025 8 :34am Marijuana use acute February 26, 2 025 8:34am Obesity affecting acute February 26, 2025 8:34am PCOS (polycystic ovarian syndrome) acute February 26, 2025 8 :34am acute February 26, 2025 8:34am Rh negative status during acute February 26, 2025 8 :34am Sleep apnea acute February 26 8:34am Supervision of high-risk acute February 26, 2025 8 :34am Abnormal glucose affecting acute March 10, 2025 2:11pm AMA (advanced maternal age) multigravida 35+ acute March 10, 2025 2:11pm Conceived by in vitro fertilization acute March 10, 2025 2:11pm Depression with anxiety acute J 2024 2:11pm Family history of genetic disorder acute March 10, 2025 2:11pm GERD (gastroesophageal reflu x disease) acute March 10, 2025 2:11pm H/O section acute March 10, 2025 2:11pm Infertility associated with anovulation acute March 10, 2025 2:11pm Marijuana use acute March 10, 2025 2:11pm Obesity affecting acute March 10, 2025 2:11pm PCOS (polycystic ovarian syndrome) acute March 10, 2025 2:11pm acute March 10 2:11pm Rh negative status during acute March 10, 2025 2:11pm Sleep apnea acute March 10 2:11pm Supervision of high-risk acute March 10, 2025 2:11pm [facility] Work Phone: [phone] 978-863803-06-2025 Evaluation note* Diagnosis Onset Date Resolution Status Admit Date AMA (advanced maternal age) multigravida 35+ acute December 03, 2024 1:25pm Conceived by in vitro fertilization acute December 03, 2024 1:25pm Depression with anxiety acute M arch 2024 1:25pm Family history of genetic disorder acute December 03, 2024 1:25pm GERD (gastroesophageal reflu x disease) acute December 03, 2024 1:25pm H/O section acute William 2024 1:25pm Infertility associated with anovulation acute December 03, 2024 1:25pm Marijuana use acute December 03, 2024 1:25pm Obesity affecting acute December 03, 2024 1:25pm PCOS (polycystic ovarian syndrome) acute December 03, 2024 1:25pm acute December 03 1:25pm Rh negative status during acute December 03, 2024 1:25pm Sleep apnea acute December 03 1:25pm Supervision of high-risk acute December 03, 2024 1:25pm AMA (advanced maternal age) multigravida 35+ acute January 01, 2025 10:03am Conceived by in vitro fertilization acute January 01, 2025 10:03am Depression with anxiety acute A pril 2024 10:03am Family history of genetic disorder acute January 01, 2025 10:03am GERD (gastroesophageal reflu x disease) acute January 01, 2025 10:03am H/O [...] maternal age) multigravida 35+ acute January 29, 2025 1 0:15am Conceived by in vitro fertilization acute January 29, 2025 10 :15am Depression with anxiety acute M ay 2024 10:15am Family history of genetic disorder acute January 29, 2025 10 :15am GERD (gastroesophageal reflu x disease) acute January 29, 2025 10 :15am H/O section acute January 29, 2025 10:15am Infertility associated with anovulation acute January 29, 2025 10 :15am Marijuana use acute January 29 10:15am Obesity affecting acute January 29, 2025 10:15am PCOS (polycystic ovarian syndrome) acute January 29, 2025 10 :15am acute January 29, 2025 10:15am Rh negative status during acute January 29, 2025 10 :15am Sleep apnea acute January 29, 2025 10:15am Supervision of high-risk acute January 29, 2025 10 :15am AMA (advanced maternal age) multigravida 35+ acute February 26, 2025 8:34am Conceived by in vitro fertilization acute February 26, 2025 8 :34am Depression with anxiety acute 2024 8:34am Family history of genetic disorder acute February 26, 2025 8 :34am GERD (gastroesophageal reflu x disease) acute February 26, 2025 8 :34am H/O section acute February 26, 2025 8:34am Infertility associated with anovulation acute February 26, 2025 8 :34am Marijuana use acute February 26, 2 025 8:34am Obesity affecting acute February 26, 2025 8:34am PCOS (polycystic ovarian syndrome) acute February 26, 2025 8 :34am acute February 26, 2025 8:34am Rh negative status during acute February 26, 2025 8 :34am Sleep apnea acute February 26 8:34am Supervision of high-risk acute February 26, 2025 8 :34am Abnormal glucose affecting acute March 10, 2025 2:11pm AMA (advanced maternal age) multigravida 35+ acute March 10, 2025 2:11pm Conceived by in vitro fertilization acute March 10, 2025 2:11pm Depression with anxiety acute J 2024 2:11pm Family history of genetic disorder acute March 10, 2025 2:11pm GERD (gastroesophageal reflu x disease) acute March 10, 2025 2:11pm H/O section acute March 10, 2025 2:11pm Infertility associated with anovulation acute March 10, 2025 2:11pm Marijuana use acute March 10, 2025 2:11pm Obesity affecting acute March 10, 2025 2:11pm PCOS (polycystic ovarian syndrome) acute March 10, 2025 2:11pm acute March 10 2:11pm Rh negative status during acute March 10, 2025 2:11pm Sleep apnea acute March 10 2:11pm Supervision of high-risk acute March 10, 2025 2:11pm Abnormal glucose affecting acute March 26, 2025 2:10pm AMA (advanced maternal age) multigravida 35+ acute March 26, 2025 2:10pm Conceived by in vitro fertilization acute March 26, 2025 2:10pm Depression with anxiety acute J [facility] 2024 2:10pm Family history of genetic disorder acute March 26, 2025 2:10pm GERD (gastroesophageal reflu x disease) acute March 26, 2025 2:10pm H/O section acute March 26, 2025 2:10pm Infertility associated with anovulation acute March 26, 2025 2:10pm Marijuana use acute March 26, 2025 2:10pm Obesity affecting acute March 26, 2025 2:10pm PCOS (polycystic ovarian syndrome) acute March 26, 2025 2:10pm acute March 26 2:10pm Rh negative status during acute March 26, 2025 2:10pm Sleep apnea acute March 26 2:10pm Supervision of high-risk acute March 26, 2025 2:10pm [facility] Work Phone: 1(642) 386-841102-06-2025 Evaluation note* Diagnosis Onset Date Resolution Status Admit Date AMA (advanced maternal age) multigravida 35+ acute November 05, 2 025 2:22pm Conceived by in vitro fertilization acute November 05 2:22pm Depression with anxiety [place] 2024 2:22pm Family history of genetic disorder acute November 05 2:22pm GERD (gastroesophageal reflu x disease) acute November 05 2:22pm H/O section acute ua2024 2:22pm Infertility associated with anovulation acute November 05 2:22pm Marijuana use acute October 2:22pm Obesity affecting acute November 05, 2024 2:22pm PCOS (polycystic ovarian syndrome) acute November 05 2:22pm acute November 05, 2024 2:22pm Rh negative status during acute November 05 2:22pm Sleep apnea acute November 05, 2024 2:22pm Supervision of high-risk acute November 05 2:22pm AMA (advanced maternal age) multigravida 35+ acute December 03, 2024 1:25pm Conceived by in vitro fertilization acute December 03, 2024 1:25pm Depression with anxiety acute M [place] 2024 1:25pm Family history of genetic disorder acute December 03, 2024 1:25pm GERD (gastroesophageal reflu x disease) acute December 03, 2024 1:25pm H/O section acute [place] 2024 1:25pm Infertility associated with anovulation acute December 03, 2024 1:25pm Marijuana use acute December 03, 2024 1:25pm Obesity affecting acute December 03, 2024 1:25pm PCOS (polycystic ovarian syndrome) acute December 03, 2024 1:25pm acute December 03 1:25pm Rh negative status during acute December 03, 2024 1:25pm Sleep apnea acute December 03 1:25pm Supervision of high-risk acute December 03, 2024 1:25pm AMA (advanced maternal age) multigravida 35+ acute January 01, 2025 10:03am Conceived by in vitro fertilization acute January 01, 2025 10:03am Depression with anxiety acute A pril 2024 10:03am Family history of genetic disorder acute January 01, 2025 10:03am GERD (gastroesophageal reflu x disease) acute January 01, 2025 10:03am H/O [...] maternal age) multigravida 35+ acute January 29, 2025 1 0:15am Conceived by in vitro fertilization acute January 29, 2025 10 :15am Depression with anxiety acute M ay 2024 10:15am Family history of genetic disorder acute January 29, 2025 10 :15am GERD (gastroesophageal reflu x disease) acute January 29, 2025 10 :15am H/O section acute January 29, 2025 10:15am Infertility associated with anovulation acute January 29, 2025 10 :15am Marijuana use acute January 29 10:15am Obesity affecting acute January 29, 2025 10:15am PCOS (polycystic ovarian syndrome) acute January 29, 2025 10 :15am acute January 29, 2025 10:15am Rh negative status during acute January 29, 2025 10 :15am Sleep apnea acute January 29, 2025 10:15am Supervision of high-risk acute January 29, 2025 10 :15am AMA (advanced maternal age) multigravida 35+ acute February 26, 2025 8:34am Conceived by in vitro fertilization acute February 26, 2025 8 :34am Depression with anxiety acute M ay 2024 8:34am Family history of genetic disorder acute February 26, 2025 8 :34am GERD (gastroesophageal reflu x disease) acute February 26, 2025 8 :34am H/O section acute February 26, 2025 8:34am Infertility associated with anovulation acute February 26, 2025 8 :34am Marijuana use acute February 26, 2 025 8:34am Obesity affecting acute February 26, 2025 8:34am PCOS (polycystic ovarian syndrome) acute February 26, 2025 8 :34am acute February 26, 2025 8:34am Rh negative status during acute February 26, 2025 8 :34am Sleep apnea acute February 26 8:34am Supervision of high-risk acute February 26, 2025 8 :34am [facility] Work Phone: [phone]) 976-614002-04-2025 NoteHNO ID: [id number] Author: DEMARCUS MINER PA-C Service: ? Author Type: Physician Christian Counselor Type: Progress Notes Filed: 11/03/2024 16:55 Note Text: Telemedicine Visit - Distance Health Virtual Visit Note Patient seen on [employer] Video Visit platform. Location of patient: [place] I have communicated my name and active licensure. The patient's identity and physical location were verified at the time of this visit. Either the patient or their legal procurement representative has been informed of the risks [...] person care - All questions answered [facility]02-04-2025 History of Present illness Narrative* Demarcus Miner PA-C - 11/03/2024 4:51 PM EST Telemedicine Visit - Distance Health Virtual Visit Note Patient seen on [employer] Video Visit platform. Location of patient: [place] I have communicated my name and active licensure. The patient's identity and physical location wereverified at the time of this visit. Either the patient or their legal procurement representative has been informed of the risks [...] answered Demarcus Miner PA-C [facility] Note * Telephone Encounter - Marta Del Valle MD - 07/29/2024 5:17 PM EDT Due for yearly follow up - must be seen to get additional re [facility]2024 Miscellaneous Notes* Telephone Encounter - Marta Del Valle MD - 07/29/2024 5:17 PM EDT Due for yearly follow up - must be seen to get additional re [facility]2024 NoteHNO ID: [id number] Author: GINA SAHU APRN.[facility] Service: ? Author Type: Nurse Practitioner Type: [...] Patient agreeable to treatment plan. Gina Sahu APRN.[facility]04-14-2024 History of Present illness Narrative* Gina Sahu APRN.[facility] - 01/12/2024 11:06 AM EDT CC: [...] plan. Gina Sahu APRN.[facility]II [facility]03-[facility]-2024 Procedure [facility]04-12-2023 History of Present illness Narrative* Lynne Landaverde - 01/09/2023 9:00 AM EDT Patient offered a medical rn complex care for sensitive exam. Pt declined [facility] History of Present illness Narrative* Maile Bobby [...] . Physical Exam Exam conducted with a rn complex care present. Constitutional: General: She is not in [...] pumping but will send e consult for workers compensation specialist to ensure no additional work up indicated. Normal breast exam, normal TFTs and prolactin [facility]-2022 NoteSatisfactory For Evaluation; Endocervical/Transformation Zone Component Present.[facility] CenterComment on above:Order Comment: Patient'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Performed By: #### THINP #### [facility] (DEFAULT) [address] [place] [address] [id number] History of Present illness Narrative* Faith Starkey [...] Exam in one year. documented in [facility]12-07-2022 Miscellaneous Notes* Addendum Note - Chris Whitney MA - 09/05/2022 1:30 PM ESTAddended by: CHRIS WHITNEY on: 09/05/2022 02:34 PM Modules accepted: Orders * Addendum Note - Faith Starkey MD - 09/05/2022 1:30 PM ESTAddended by: FAITH STARKEY on: 09/05/2022 03:03 PM Modules accepted: Orders documented in this encounterMer[facility]12-07-2022 Note* Addendum Note - Chris Whitney MA - 09/05/2022 1:30 PM ESTAddended by: CHRIS WHITNEY on: 09/05/2022 02:34 PM Modules accepted: Orders [facility]12-07-2022 Note* Addendum Note - Faith Starkey MD - 09/05/2022 1:30 PM ESTAddended by: FAITH STARKEY on: 09/05/2022 03:03 PM Modules accepted: Orders [facility]08-18-2021 History of Present illness Narrative* Faith Starkey [...] Rh neg Posterior placenta Discussed (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 Objective: Assessment: 31w5d Plan: 1. Has US in 3 weeks 2. RTC 2-4 weeks documented in [facility] encounter[facility]* Diagnosis Supervision of normal first , antepartum- Primary [facility]* Diagnosis Well woman exam with routine gynecological exam- Primary Routine gynecological examination [facility]* Diagnosis Well adult exam- Primary Routine [...] full remission [facility]* Diagnosis Breast pain, right Mastodynia [facility]* Diagnosis Onset Date Resolution Status Infertility associated with anovulation acute PCOS (polycystic ovarian syndrome) acute Encounter for routine gynecological examination noneactive PCOS (polycystic ovarian syndrome) acute [facility] Work Phone: Evaluation note* Diagnosis URI, acute- Primary Acute upper respiratory infections of unspecified site Acute otitis media, right Unspecified otitis media Acute cough [facility]* Diagnosis Encounter for assisted reproductive fertility procedure cycle documented in this encounter [facility] Work Phone: Evaluation note* Diagnosis Encounter for assisted reproductive fertility procedure cycle documented in this encounter [facility] Work Phone: Evaluation note* Diagnosis Encounter for assisted reproductive fertility procedure cycle documented in this encounter [facility] Work Phone: Evaluation note* Diagnosis Encounter for assisted reproductive fertility procedure cycle documented in this encounter [facility] Work Phone: Evaluation note* Diagnosis Encounter for test, result positive ([facility]) documented in this encounter [facility] Work Phone: Evaluation note* Diagnosis Encounter for test, result positive ([facility]) documented in this encounter [facility] Work Phone: Evaluation note* Diagnosis Viral URI with cough- Primary Acute upper respiratory infections of unspecified site [facility] Attachments The following attachments cannot be sent through Care Everywhere. * Breast Health ([facility]) (Nepalese) * Breast Self-Exam (Nepalese) [facility] note Author Apple Lao [facility] Note Date/Time February 26, 2025 9:38a m [facility] [address] [place] [address], [address] [place] [address] OFFICE VISIT Date of Service: 02/26/25 MR#: [id number] Acct: [id number] Name: FEDERICOBARBYVICKI BLAND Rep #: [id number] : 1990 Provider: Dr. Frank Lao MD Age/Sex: 34/F [place] [facility] Status: Signed Intake Vital Signs 10/09/24 14:36 01/01/25 10:10 01/29/25 10:30 02/26/25 08:45 Height 5 ft 2 in 5 ft 2 in 5 ft 2 in 5 ft 2 in Weight: 262 lb 2 oz 261 lb 4 oz 264 lb 2 oz BMI 47.9 47.7 48.3 BP 125/82 H 114/81 H 102/66 Intake Visit Reasons: 28 WK OB/GLUCOSE *DOC ONLY* Supervisor Agency Appointments Required: No Is patient in pain?: No [...] 1 current occupational status: unemployed current occupation: 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 Date Name GA/Weeks Outcome Route Bth Weight Infant Gen Labor Lgth Anesthesia Del Locatn Provider FOB 07/18/21 Larry 40 live - full term 7lbs 7oz Male [facility] [place] Delivery Date: 07/18/21 Last Updated by: Aida Shields, RN Induce d/t failure to progress naturally [...] transfer. declines NIPT had genetic testing at [facility] 11/05/24 -?-?-?-?-?-?-?-?-?-?-?-?- 12w 1d 260 lb (-4 lb) 125/89 Negative -?-?-?-?-?-?-?-?-?-?-?-?- Negative 165 -?-?-?-?-?-?-?-?-?-?-?-?- JV- pt to stop p rubens today. start baby asa for bmi and [...] Immediate Larc, Signs and Symptoms of Preeclampsia, Feeding No , [place] Education and Family Medical Leave or Disability Forms Office Procedures Injections Is this a patient provided medication?: No Office Meds RhoGAM Ultra-Filtered PLUS 1,500 unit (300 mcg) intramuscular syringe Performing Provider: Apple Lao MD Performing Location: [facility] Administered by: Aziza Olson on 02/26/25 08:56 Dose Route Admin Location Dispensed Lot Number Expiration Date [facility] [employer] 1,500 unit IM right gluteal 1 ea [id number] 03/05/27 [id number] [facility] Results POC Urinalysis 2 Dip (Clinic) [...] by Apple brown MD> Date _ Apple Haque Signature: Date (if applicable) CC: ~ [facility] Work Phone: Progress note Author Edel Diehl [facility] Note Date/Time April 07, 2025 10:55 am [facility] [address] [place] [address], [address] [place] [address] OFFICE VISIT Date of Service: 04/07/25 MR#: [id number] Acct: [id number] Name: BARBY CABALLERO Rep #: [id number] : 1990 Provider: Dr. Kellen Bullock DO Age/Sex: 34/F Location[place] [facility] Status: Signed Intake Vital Signs 01/29/25 10:30 03/26/25 14:17 04/07/25 10:00 Height 5 ft 2 in 5 ft 2 in 5 ft 2 in Weight: 268 lb 4 oz BMI 49.0 BP 119/80 Intake Visit Reasons: 34 wk ob *Doc Only* Supervisor Agency Appointments Required: No Is patient in pain?: No Allergies No Known Allergies Allergy (Verified 04/07/25 10:09) Medications ?Medication ?Instructions ?Recorded ?Confirmed ?Type escitalopram oxalate 10 mg tablet 10 mg PO DAILY #30 t abs 07/20/24 04/07/25 Rx (Lexapro) docosahexaenoic acid 200 mg 200 mg PO DAILY #90 caps 1 04/07/25 Rx capsule ( DHA) levothyroxine 25 mcg tablet 25 mcg PO QDAY #90 tabs 04/07/25 Rx (Synthroid) promethazine 25 mg tablet 25 mg PO Q6H PRN headache #3 0 tabs 12/17/24 04/07/25 Rx famotidine 40 mg tablet (Pepcid) 40 mg PO DAILY #30 ta bs 01/11/25 04/07/25 Rx breast pump #1 ea 01/29/25 04/07/25 Rx Last Menstrual Period: 08/12/24 Zika: Zika [...] 1 current occupational status: unemployed current occupation: 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 Date Name GA/Weeks Outcome Route Bth Weight Infant Gen Labor Lgth Anesthesia Del Locatn Provider FOB 07/18/21 Larry 40 live - full term 7lbs 7oz Male [facility] [place] Delivery Date: 07/18/21 Last Updated by: Aida Shields, KIM Induce d/t failure to progress naturally .. Slow progression of labor w/ decels .. Failed vacuum delivery into emergency csec HPI 34 wk ob *Doc Only* Details: BARBY CABALLERO is a 34 year old who presents for routine OB visit. OB Visit ANTONIO Calculator Estimated Delivery Date Method Current WG Current Estimate 05/19/25 Conception 34w 0d Expected Delivery Route/Plan repeat c/s Specific Issue/Plans [...] 8w 2d 264 lb (+0 oz) 120/76 -?-?-?--?-?-?-?-?-?-?-?-?- 169 -?-?-?-?-?-?-?-?-?-?-?-?- KW-CRL cons with embryo transfer. declines NIPT had genetic testing at [facility] 11/05/24 -?-?-?-?-?-?-?-?-?-?--?-?- 12w 1d 260 lb (-4 lb) 125/89 [...] fm nreo gualr ctx cbc gct today 03/10/25 -?-?-?-?-?-?-?-?-?-?-?-?- 30w 0d 265 lb 8 oz (+1 lb 8 oz) 110/76 Negative -?-?-?-?-?-?-?-?-?-?-?-?- Negative 147 30 0 -?-?-?-?-?-?-?-?-?-?-?-?- JV- no lof, vagi nal bleeding, or dec fm. has growth scans at 34 and 38 weeks. Lar signed today JV- no lof, vaginal bleeding , or dec fm. has growth scans at 34 and 38 weeks. Lar signed today. pelvic exam performed for tightening feeling. vaginitis smear ordered. 03/26/25 -?-?-?-?-?-?-?-?-?-?-?-?- 32w 2d 267 lb 4 oz (+3 lb 4 oz) 131/82 Negative -?-?-?-?-?-?-?-?-?-?-?-?- Negative 142 38 -?-?-?-?-?-?--?-?-?-?-?-?- JV- needs weekly bpp's starting 34 weeks for bmi and IVF. no complaints. contractions stopped with treatment of yeast. 04/07/25 -?-?-?-?-?-?-?-?-?-?-?-?- 34w 0d 268 lb 4 oz (+4 lb 4 oz) 119/80 -?-?-?-?-?-?-?-?-?-?-?-?- 138 35 -?-?-?-?-?-?-?-?-?-?-?-?- JV- c/o overall itching. bile acids and cmp ordered. low suspicion for Cholestasis of however. no lof, vaginal bleeding, or dec fm. ACOG First Trimester First Trimester: Discussed Second Trimester Second Trimester: Signs and Symptoms of Labor, Selecting a care provider, Reproductive Life Planning & Contreception, Care Planning, Depression/Anxiety and Intimate Partner Violence; Discussed Tobacco Cessation Third Trimester Third Trimester: Pain Management Plans, Labor support person(s), Immediate Larc, Signs and Symptoms of Preeclampsia, Feeding No , [place] Education and Family Medical Leave or Disability Forms Coding Level of Care Code OB Routine Diagnoses Abnormal glucose affecting O99.810 H/O section Z98.891 AMA (advanced maternal age) multigravida 35+ O09.529 Conceived by in vitro fertilization Z78.9 Family history of genetic disorder Z84.89 Marijuana use F12.90 Obesity affecting O99.210 Rh negative status during O26.899; Z67.91 Supervision of high-risk O09.90 34 weeks gestation of Z3A.34 Weeks of gestation: 34 weeks Sleep apnea G47.30 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 desires repeat C/S: RLTCS 05/12/25 JV. (3) AMA (advanced maternal age) multigravida 35+: Status: Acute (4) Conceived by in vitro fertilization: Status: Acute Comment: growth and NSTs at 36 weeks. deliver by 39. Transferred male embryo - embryo tested (5) Family history of genetic disorder: Status: Acute Comment: FOB w/ Shaw Muscular Dystrophy (X Chromosome linked) FOB adopted with limited medical history (6) Marijuana use: Status: Acute Comment: Last use: May 2024; Pt informed of random tox screens (7) Obesity affecting : Status: Acute Comment: BMI 47.5; twice weekly BPPs at 34 weeks-HgBA1C ordered (8) Rh negative status during : Status: Acute Comment: B-, Needs Rhogam @ 28 weeks (9) Supervision of high-risk : Status: Acute Comment: PRR, , ANTONIO 05/19/25,boy PC: Larry, : [place] (10) : Status: Acute Qualifiers: Weeks of gestation: 34 weeks Qualified Code(s): Z3A.34 - 34 weeks gestation of Comment: Discussed genetic/carrier testing - declines d/t embryo tested prior to transfer, nl anatomy. echo normal. (11) Sleep apnea: Status: Acute (12) Infertility associated with anovulation: Status: Acute (13) GERD (gastroesophageal reflux disease): Status: Acute Qualifiers: Esophagitis presence: without esophagitis Qualified Code(s): K21.9 - Gastro-esophageal reflux disease without esophagitis (14) Depression with anxiety: Status: Acute (15) PCOS (polycystic ovarian syndrome): Status: Acute Orders: Orders Comprehensive Metabolic Profil Today L29.9 - Pruritus, unspecified 04/07/25 1055 <Electronically signed by Edel Quintana DO> Date _ Edel Bullock DO Cosigner Signature: Date (if applicable) CC: ~ [facility] Work Phone: Reason for referral (narrative)No reason for referral information availableMount [facility] Campus Work Phone: Reason for visit Narrative* Imaging (Routine) - Authorized Specialty Diagnoses / Procedures Referred By Adia vicente Referred To Contact Radiology Diagnoses Encounter for assisted reproductive fertility procedure cycle Procedures US PELVIS TRANSABDOMINAL WITH TRANSVAGINAL Levon Braxton MD [address] [facility] [place] [address] Phone: tel: fax: Referral ID Status Reason Start Date Expiration Date Visits Requested Visits Authorized [id number] Authorized Perform Procedure 4 08/13/2025 1 1 [facility] Work Phone: Reason for visit Narrative* Imaging (Routine) - Authorized Specialty Diagnoses / Procedures Referred By Contac t Referred To Contact Radiology Diagnoses Encounter for assisted reproductive fertility procedure cycle Procedures US PELVIS TRANSABDOMINAL WITH TRANSVAGINAL Levon Braxton MD [address] [place] [address] Phone: tel: fax: Referral ID Status Reason Start Date Expiration Date Visits Requested Visits Authorized [id number] Authorized Perform Procedure 4 08/14/2025 1 1 [facility] Work Phone: Refdnd for visit Narrative* Imaging (Routine) - Authorized Specialty Diagnoses / Procedures Referred By Contac t Referred To Contact Radiology Diagnoses Encounter for test, result positive ([facility]) Procedures US PELVIS OB TRANSABDOMINAL W TRANSVAGINAL UP TO 1ST TRIMESTER Levon Braxton MD [address] [place] [address] Phone: tel: fax: Referral ID Status Reason Start Date Expiration Date Visits Requested Visits Authorized [id number] Authorized Perform Procedure 4 09/15/2025 1 1 [facility] Work Phone: Reason for visit Narrative* Imaging (Routine) - Authorized Specialty Diagnoses / Procedures Referred By Contac t Referred To Contact Radiology Diagnoses Encounter for test, result positive ([facility]) Procedures US PELVIS OB TRANSABDOMINAL W TRANSVAGINAL UP TO 1ST TRIMESTER Levon Braxton MD [address] [place] [address] Phone: tel: fax: Referral ID Status Reason Start Date Expiration Date Visits Requested Visits Authorized [id number] Authorized Perform Procedure 4 09/25/2025 1 1 [facility] Work Phone: History of Present Illness * Janes Gutiérrez MD - 08/20/2018 9:07 AM EST Formatting of this note may be different from the original. [facility] [address] [facility] [id number] Hematology and Oncology Progress Note Patient Name: Barby Caballero MR #: [id number] : 1990 Date of Service: 08/20/18 Clinician: Janes Gutiérrez MD DIAGNOSIS Leukocytosis, etiology unknown. Dictation on: 08/20/2018 9:09 AM by: JANES GUTIÉRREZ [[id number]] History of Present Illness: Ms. Barby Caballero [...] bowel disease or arthritis. 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 For some reason, her CRP has been high over the last year. By reviewing her chart, she had leukocytosis for almost a year now. She is not on any steroid product. Dictation on: 08/20/2018 9:36 AM by: JANES GUTIÉRREZ [[id number]] Allergies Allergen Reactions Amoxicillin Diarrhea and GI [...] mg by mouth. 07/31/18 Yes Historical Provider, MD BOO TRIPHASIC REGIMEN, 28, 0.1/.125/.15-25 mg-mcg tablet 02/26/15 [...] on: 08/20/2018 9:37 AM by: JANES GUTIÉRREZ [[id number]] Orders Placed This Encounter CBC and Differential Janes Gutiérrez MD CC: Marta Del Valle MD in this encounter* Janes Gutiérrez MD - 01/22/2020 1:[address] [facility] [address] [place] [id number] Hematology and Oncology Progress Note Patient Name: Barby Caballero MR #: [id number] : 1990 Date of Service: 02/18/2019 Clinician: [...] bowel disease or arthritis. 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 For some reason, her CRP has been [...] back negative. She is clinically asymptomatic. 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 CBC stable with WBC 5.15, Hgb 13.5 [...] file Gets together: Not on file Attends taoist service: Not on file Active member of [...] mg by mouth. 07/31/18 Yes Historical Provider, MD BOO TRIPHASIC REGIMEN, 28, 0.1/.125/.15-25 mg-mcg tablet 02/26/15 [...] Skin Lesion Additional comments: Left abdomen since security sme unchanged Last edited by Will Prabhakar MD [...] - 07/27/2020 10:40 AM EDT Patient Name: [facility] Location: Barby Caballero [address] [place] [id number] Date Of : Date Of Visit: 1990 07/27/2020 MRN# Provider: [id number] Marli Thompson PA-C Chief Complaint Patient presents with Fever aches, diarrhea, nausea, exposed to COVID. sx starting Hemant night Assessment & Plan 1. Close Exposure [...] diarrhea, nausea, exposed to COVID. sx starting Saturday) URI This is a new problem. The [...] . famotidine (PEPCID) 40 MG tablet vit 38-cyta-vakaq-dha ( + DHA) 28 mg iron- 975 [...] go immediately to ED for further evaluation [facility] COVID-19 Post-swabbing Instructions We will do our best to update you as soon as we receive your test results, but if we had to send your test to be run at the lab, you may see the results on MyChart or receive a call from [facility] before we are able to contact you. [...] results. - If you have an active [employer] account, and your COVID-19 test is negative (not detected), then you will be notified through your [employer] account. You should call the urgent care if you have any further questions. - If your COVID-19 test is positive (detected), you will receive a phone call to discuss your results and answer any questions you might have at that time. Please make sure [facility] has your updated phone number so we can contact you. 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 CDC - https://www.cdc.gov/coronavirus/2019-ncov/index.html - https://www.cdc.gov/coronavirus/2019-ncov/mq-mhy-eiv-sick/quarantine.html [facility] - Website: https://coronavirus.[place].gov/wps/portal/gov/covid-19/home - Hotline: 111-0-DGX-ODH (718-500-3882) [facility]: https://blog.thesocialCV.com/series/vlnta-75-dkwildfrysy-toolkit/ documented in this encounter* Janes Gutiérrez MD - 08/19/2019 11:05 [address] [facility] [address] [facility] [phone] Hematology and Oncology Progress Note Patient Name: Barby Caballero MR #: [id number] : 1990 Date of Service: 08/19/19 Clinician: [...] bowel disease or arthritis. 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 For some reason, her CRP has been [...] days. No fever or chills. 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 Dictation on: 08/19/2019 11:07 AM by: JANES GUTIÉRREZ [[id number]] Allergies Allergen Reactions Amoxicillin Diarrhea and GI [...] file Gets together: Not on file Attends taoist service: Not on file Active member of [...] on: 08/19/2019 11:08 AM by: JANES GUTIÉRREZ [[id number]] Orders Placed This Encounter famotidine (PEPCID) 40 [...] sent through Care Everywhere. * Abdominal Pain (Nepalese) documented in this encounter* Instructions* Laurent Duque MD - 03/19/2019 Continue taking your home medications as prescribed. Follow-up with your family doctor first available appointment. Return to the emergency room for any worsening symptoms or concerns * Attachments The following attachments cannot be sent through Care Everywhere. * Abdominal Pain (Nepalese) * Chest Pain (Nepalese) documented in this encounter Advance Directives No Advanced Directives Records FoundDocuments on File Type Date Recorded Patient Health Underwriter Expl anation Advance Directives and Karmen davila Will 07/29/2019 10:42 AM Documents on File Type Date Recorded Patient Health Underwriter Expl anation Advance Directives and Livin g Will 08/19/2019 10:42 AM Documents on File Type Date Recorded Patient Health Underwriter Expl anation Advance Directives and Livin g [...] Do you have a Healthcare Power of Pretzel Cooker? No November 10, 2024 8:21pm Summary Purpose Family History No Family History Records Found Relationship Condition Age at Onset Recorded Date/T sehrri mother Hypertension Unknown grandfather Cardiac disease Unknown Hypertension Unknown Diabetes mellitus Unknown Malignant neoplasm Unknown Macular degeneration Unknown grandmother Macular degeneration Unknown Instructions * Patient Instructions* Sandie Tyler MA - 08/23/2020 9:02 AM EST Effective 10/14/2019, all [employer] users will be automatically enrolled in paperless billing in an effort to save our environment by eliminating waste & reduce healthcare costs. A monthly notification will be sent to your e-mail address on file indicating you have a new billing statement available in [employer]. If you prefer to receive paper statements, log into [employer] at [employer] DATA to update your e-mail, text and mail preferences (opting out of paperless billing). Please direct further questions to Customer Service at [phone] or . documented in this encounter* Patient Instructions* Marli [...] go immediately to ED for further evaluation [facility] COVID-19 Post-swabbing Instructions We will do our best to update you as soon as we receive your test results, but if we had to send your test to be run at the lab, you may see the results on MyChart or receive a call from [facility] before we are able to contact you. [...] results. - If you have an active [employer] account, and your COVID-19 test is negative (not detected), then you will be notified through your [employer] account. You should call the urgent care if you have any further questions. - If your COVID-19 test is positive (detected), you will receive a phone call to discuss your results and answer any questions you might have at that time. Please make sure [facility] has your updated phone number so we can contact you. 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 CDC - https://www.cdc.gov/coronavirus/2019-ncov/index.html - https://www.cdc.gov/coronavirus/2019-ncov/ch-quf-bef-sick/quarantine.html [place] [facility] - Website: https://coronavirus.[place].gov/wps/portal/gov/covid-19/home - Hotline: 164-4-QWU-ODH (558-217-9335) [facility]: https://blog.LegCyte.Taplet/series/btewj-53-szyjcgqezox-toolkit/ documented in this encounter Reason for Referral Specialty Diagnoses / Procedures Referred By Contdanielle t Referred To Contact Diagnoses Prolonged Marta Del Valle MD [address] [place] [address] Referral ID Status Reason Start Date Expiration Date V isits Requested Visits Authorized [id number] New Request 09/27/2022 10/22/2023 1 1 Specialty Diagnoses / Procedures Referred By Adia vicente Referred To Contact Radiology Diagnoses Encounter for assisted reproductive fertility procedure cycle Procedures US PELVIS TRANSABDOMINAL WITH TRANSVAGINAL US pelvis transvaginal Levon Braxton MD [address] [place] [address] Referral ID Status Reason Start Date Expiration Date Visits Requested Visits Authorized [id number] Pending Review Perform Procedure 06/11/2024 06/11/2025 1 1 Specialty Diagnoses / Procedures Referred By Adia vicente Referred To Contact Radiology Diagnoses Encounter for assisted reproductive fertility procedure cycle Procedures GERRY US Pelvis Limited Follicles - Follicle Studies Performed Levon Braxton MD [address] [place] [address] Referral ID Status Reason Start Date Expiration Date Visits Requested Visits Authorized [id number] Authorized Perform Procedure 06/19/2024 06/19/2025 1 1 Specialty Diagnoses / Procedures Referred By Adia vicente Referred To Contact Radiology Diagnoses Encounter for assisted reproductive fertility procedure cycle Procedures US PELVIS TRANSABDOMINAL WITH TRANSVAGINAL Levon Braxton MD [address] [place] [address] Referral ID Status Reason Start Date Expiration Date Visits Requested Visits Authorized [id number] Authorized Perform Procedure 06/15/2024 06/15/2025 1 1 Referral ID Status Reason Start Date Expiration Date Visits Requested Visits Authorized [id number] Authorized Perform Procedure 06/22/2024 06/22/2025 1 1 Referral ID Status Reason Start Date Expiration Date Visits Requested Visits Authorized [id number] Authorized Perform Procedure 06/15/2024 06/15/2025 1 1 Referral ID Status Reason Start Date Expiration Date Visits Requested Visits Authorized [id number] Authorized Perform Procedure 06/24/2024 06/24/2025 1 1 Referral ID Status Reason Start Date Expiration Date Visits Requested Visits Authorized [id number] Authorized Perform Procedure 06/15/2024 06/15/2025 1 1 Chief Complaint and Reason for Visit 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 Reason for Visit Infertility associat [...] 2024 2:22pm Conceived by in vitro fertilization [facility] 2024 2:22pm Depression with anxiety November 05 2:22pm Family history of genetic disorder [facility]2024 2:22pm GERD (gastroesophageal reflux disease) [place] 2024 2:22pm H/O section November 05, 2024 2:22pm Infertility associated with anovulation November 05, 2024 2:22pm Marijuana use November 05, 2024 2 :22pm Obesity affecting October 2:22pm PCOS (polycystic ovarian syndrome) [facility]2024 2:22pm November 05, 2024 2 :22pm Rh negative status during 2024 2:22pm Sleep apnea November 05, 2024 2 :22pm Supervision of high-risk [facility] 2024 2:22pm AMA (advanced maternal age) multigravida 35+ December 03, 2024 1:25pm Conceived by in vitro fertilization [facility] 2024 1:25pm Depression with anxiety December 03, 2024 1:25pm Family history of genetic disorder December 03, 2024 1:25pm GERD (gastroesophageal reflux disease) M [facility] 2024 1:25pm H/O section December 03, 2024 1:2 5pm Infertility associated with anovulation December 03, 2024 1:25pm Marijuana use December 03, 2024 1:25 pm Obesity affecting December 03, 2 025 1:25pm PCOS (polycystic ovarian syndrome) December 03, 2024 1:25pm December 03, 2024 1:25 pm Rh negative status during William 2024 1:25pm Sleep apnea December 03, 2024 [...] 01, 2025 10:0 3am Obesity affecting January 01 10:03am PCOS (polycystic ovarian syndrome) January 01, [...] m Supervision of high-risk January 302024 8:34am Chief Complaint Admit Date palpitations November 10, 2024 6:30pm 16 WK OB *DOC ONLY* December 03, 2024 1:25 pm 20 WK OB *DOC ONLY* January 01, 2025 10:0 3am 24 WK OB *DOC ONLY* January 29, 2025 10:15a m 28 WK OB/GLUCOSE *DOC ONLY* February 26 8:34am SCREENING FOR DIABETES MELLITUS February 6:51am Reason for Visit Admit Date AMA (advanced maternal age) multigravida 35+ December 03, 2024 1:25pm Conceived by in vitro fertilization [facility] 2024 1:25pm Depression with anxiety December 03, [...] 1:25 pm Rh negative status during William 2024 1:25pm Sleep apnea December 03, 2024 [...] 01, 2025 10:0 3am Obesity affecting January 01 10:03am PCOS (polycystic ovarian syndrome) January 01, [...] m Supervision of high-risk January 302024 8:34am Chief Complaint Admit Date palpitations November 10, 2024 6:30pm 16 WK OB *DOC ONLY* December 03, 2024 1:25 pm 20 WK OB *DOC ONLY* January 01, 2025 10:0 3am 24 WK OB *DOC ONLY* January 29, 2025 10:15a m 28 WK OB/GLUCOSE *DOC ONLY* February 26 8:34am SCREENING FOR DIABETES MELLITUS February 6:51am 30 WK OB *DOC ONLY* March 10, 2025 2:11 pm Reason for Visit Admit Date AMA (advanced maternal age) multigravida 35+ December 03, 2024 1:25pm Conceived by in vitro fertilization William h 2024 1:25pm Depression with anxiety December 03, [...] 10:0 3am Obesity affecting January 01, 2 025 10:03am PCOS (polycystic ovarian syndrome) January 01, [...] m Supervision of high-risk January 302024 8:34am Abnormal glucose affecting Teo 2024 2:11pm AMA (advanced maternal age) multigravida 35+ March 10, 2025 2:11pm Conceived by in vitro fertilization March 10, 2025 2:11pm Depression with anxiety March 10, 2025 2:11pm Family history of genetic disorder March 10, 2025 2:11pm GERD (gastroesophageal reflux disease) J une 2024 2:11pm H/O section March 10, 2025 2:1 1pm Infertility associated with anovulation March 10, 2025 2:11pm Marijuana use March 10, 2025 2:11 pm Obesity affecting March 10, 025 2:11pm PCOS (polycystic ovarian syndrome) March 10, 2025 2:11pm March 10, 2025 2:11 pm Rh negative status during March 10, 2025 2:11pm Sleep apnea March 10, 2025 2:11 pm Supervision of high-risk March 10, 2025 2:11pm Chief Complaint Admit Date 16 WK OB *DOC ONLY* December 03, 2024 1:25 pm 20 WK OB *DOC ONLY* January 01, 2025 10:0 3am 24 WK OB *DOC ONLY* January 29, 2025 10:15a m 28 WK OB/GLUCOSE *DOC ONLY* February 26 8:34am SCREENING FOR DIABETES MELLITUS February 6:51am 30 WK OB *DOC ONLY* March 10, 2025 2:11 pm Chief Complaint Admit Date 16 WK OB *DOC ONLY* December 03, 2024 1:25 pm 20 WK OB *DOC ONLY* January 01, 2025 10:0 3am 24 WK OB *DOC ONLY* January 29, 2025 10:15a m 28 WK OB/GLUCOSE *DOC ONLY* February 26 8:34am SCREENING FOR DIABETES MELLITUS February 6:51am 30 WK OB *DOC ONLY* March 10, 2025 2:11 pm *rs 8/7 appt* 32 WK OB *DOC ONLY* March 012024 2:10pm Reason for Visit Admit Date AMA (advanced maternal age) multigravida 35+ December 03, 2024 1:25pm Conceived by in vitro fertilization William jose alfredo 2024 1:25pm Depression with anxiety December 03, 2024 1:25pm Family history of genetic disorder December 03, 2024 1:25pm GERD (gastroesophageal reflux disease) M [facility] 2024 1:25pm H/O section December 03, 2024 1:2 5pm Infertility associated with anovulation December 03, 2024 1:25pm Marijuana use December 03, 2024 1:25 pm Obesity affecting December 03 025 1:25pm PCOS (polycystic ovarian syndrome) December 03, 2024 1:25pm December 03, 2024 1:25 pm Rh negative status during William veliz 2024 1:25pm Sleep apnea December 03, 2024 [...] 2025 10:0 3am Obesity affecting January 01, 025 10:03am PCOS (polycystic ovarian syndrome) January 01, [...] m Supervision of high-risk January 302024 8:34am Abnormal glucose affecting Teo e 2024 2:11pm AMA (advanced maternal age) multigravida 35+ March 10, 2025 2:11pm Conceived by in vitro fertilization March 10, 2025 2:11pm Depression with anxiety March 10, 2025 2:11pm Family history of genetic disorder March 10, 2025 2:11pm GERD (gastroesophageal reflux disease) J une 2024 2:11pm H/O section March 10, 2025 2:1 1pm Infertility associated with anovulation March 10, 2025 2:11pm Marijuana use March 10, 2025 2:11 pm Obesity affecting March 10, 2 025 2:11pm PCOS (polycystic ovarian syndrome) March 10, 2025 2:11pm March 10, 2025 2:11 pm Rh negative status during March 10, 2025 2:11pm Sleep apnea March 10, 2025 2:11 pm Supervision of high-risk March 10, 2025 2:11pm Abnormal glucose affecting Teo e 2024 2:10pm AMA (advanced maternal age) multigravida 35+ March 26, 2025 2:10pm Conceived by in vitro fertilization March 26, 2025 2:10pm Depression with anxiety March 26, 2025 2:10pm Family history of genetic disorder March 26, 2025 2:10pm GERD (gastroesophageal reflux disease) J une 2024 2:10pm H/O section March 26, 2025 2:1 0pm Infertility associated with anovulation March 26, 2025 2:10pm Marijuana use March 26, 2025 2:10 pm Obesity affecting March 26 2:10pm PCOS (polycystic ovarian syndrome) March 26, 2025 2:10pm March 26, 2025 2:10 pm Rh negative status during March 26, 2025 2:10pm Sleep apnea March 26, 2025 2:10 pm Supervision of high-risk March 26, 2025 2:10pm Chief Complaint Admit Date 20 WK OB *DOC ONLY* January 01, 2025 10:0 3am 24 WK OB *DOC ONLY* January 29, 2025 10:15a m 28 WK OB/GLUCOSE *DOC ONLY* February 26 8:34am SCREENING FOR DIABETES MELLITUS February 6:51am 30 WK OB *DOC ONLY* March 10, 2025 2:11 pm *rs 8/7 appt* 32 WK OB *DOC ONLY* March 012024 2:10pm 34 wk ob *Doc Only* April 07, 2025 9:54a m Reason for Visit Admit Date AMA (advanced maternal age) multigravida 35+ January [...] 2025 10:0 3am Obesity affecting January 01, 10:03am PCOS (polycystic ovarian syndrome) January 01, [...] m Supervision of high-risk January 302024 8:34am Abnormal glucose affecting Teo e 2024 2:11pm AMA (advanced maternal age) multigravida 35+ March 10, 2025 2:11pm Conceived by in vitro fertilization March 10, 2025 2:11pm Depression with anxiety March 10, 2025 2:11pm Family history of genetic disorder March 10, 2025 2:11pm GERD (gastroesophageal reflux disease) J une 2024 2:11pm H/O section March 10, 2025 2:1 1pm Infertility associated with anovulation March 10, 2025 2:11pm Marijuana use March 10, 2025 2:11 pm Obesity affecting March 10, 2 025 2:11pm PCOS (polycystic ovarian syndrome) March 10, 2025 2:11pm March 10, 2025 2:11 pm Rh negative status during March 10, 2025 2:11pm Sleep apnea March 10, 2025 2:11 pm Supervision of high-risk March 10, 2025 2:11pm Abnormal glucose affecting Teo e 2024 2:10pm AMA (advanced maternal age) multigravida 35+ March 26, 2025 2:10pm Conceived by in vitro fertilization March 26, 2025 2:10pm Depression with anxiety March 26, 2025 2:10pm Family history of genetic disorder March 26, 2025 2:10pm GERD (gastroesophageal reflux disease) J [facility] 2024 2:10pm H/O section March 26, 2025 2:1 0pm Infertility associated with anovulation March 26, 2025 2:10pm Marijuana use March 26, 2025 2:10 pm Obesity affecting March 26, 2 025 2:10pm PCOS (polycystic ovarian syndrome) March 26, 2025 2:10pm March 26, 2025 2:10 pm Rh negative status during March 26, 2025 2:10pm Sleep apnea March 26, 2025 2:10 pm Supervision of high-risk March 26, 2025 2:10pm Abnormal glucose affecting Pablo y 2024 9:54am AMA (advanced maternal age) multigravida 35+ April 07, 2025 9:54am Conceived by in vitro fertilization April 07, 2025 9:54am Depression with anxiety April 07, 2025 9 :54am Family history of genetic disorder April 07, 2025 9:54am GERD (gastroesophageal reflux disease) J gamaliel 2024 9:54am H/O section April 07, 2025 9:54 am Infertility associated with anovulation April 07, 2025 9:54am Marijuana use April 07, 2025 9:54a m Obesity affecting April 07 9:54am PCOS (polycystic ovarian syndrome) April 07, 2025 9:54am April 07, 2025 9:54a m Rh negative status during April 07, 2025 9:54am Sleep apnea April 07, 2025 9:54a m Supervision of high-risk April 07, 2025 9:54am Chief Complaint Admit Date WK OB *DOC ONLY* January 01, 2025 10:0 3am 24 WK OB *DOC ONLY* January 29, 2025 10:15a m 28 WK OB/GLUCOSE *DOC ONLY* February 26 8:34am SCREENING FOR DIABETES MELLITUS February 6:51am 30 WK OB *DOC ONLY* March 10, 2025 2:11 pm *rs 8/7 appt* 32 WK OB *DOC ONLY* March 012024 2:10pm 34 wk ob *Doc Only* April 07, 2025 9:54a m WELLBEING April 15, 2025 1:20 pm EXTENDED MONITORING/ WELLBEING April 19, 2025 8:47am Chief Complaint Admit Date 20 WK OB *DOC ONLY* January 01, 2025 10:0 3am 24 WK OB *DOC ONLY* January 29, 2025 10:15a m 28 WK OB/GLUCOSE *DOC ONLY* February 26 8:34am SCREENING FOR DIABETES MELLITUS February 6:51am 30 WK OB *DOC ONLY* March 10, 2025 2:11 pm *rs 8/7 appt* 32 WK OB *DOC ONLY* March 012024 2:10pm 34 wk ob *Doc Only* April 07, 2025 9:54a m WELLBEING April 15, 2025 1:20 pm EXTENDED MONITORING/ WELLBEING April 19, 2025 8:47am EXTENDED MONITORING/ WELLBEING April 19, 2025 3:42pm 36 wk ob *Doc Only* April 20, 2025 1:59 pm Reason for Visit Admit Date AMA (advanced maternal age) multigravida 35+ January [...] 01, 2025 10:0 3am Obesity affecting January 01 10:03am PCOS (polycystic ovarian syndrome) January 01, [...] m Supervision of high-risk January 302024 8:34am Abnormal glucose affecting Feb 2:11pm AMA (advanced maternal age) multigravida 35+ March 10, 2025 2:11pm Conceived by in vitro fertilization March 10, 2025 2:11pm Depression with anxiety March 10, 2025 2:11pm Family history of genetic disorder March 10, 2025 2:11pm GERD (gastroesophageal reflux disease) J [facility] 2024 2:11pm H/O section March 10, 2025 2:1 1pm Infertility associated with anovulation March 10, 2025 2:11pm Marijuana use March 10, 2025 2:11 pm Obesity affecting March 10, 025 2:11pm PCOS (polycystic ovarian syndrome) March 10, 2025 2:11pm March 10, 2025 2:11 pm Rh negative status during March 10, 2025 2:11pm Sleep apnea March 10, 2025 2:11 pm Supervision of high-risk March 10, 2025 2:11pm Abnormal glucose affecting Feb 2:10pm AMA (advanced maternal age) multigravida 35+ March 26, 2025 2:10pm Conceived by in vitro fertilization March 26, 2025 2:10pm Depression with anxiety March 26, 2025 2:10pm Family history of genetic disorder March 26, 2025 2:10pm GERD (gastroesophageal reflux disease) J [facility] 2024 2:10pm H/O section March 26, 2025 2:1 0pm Infertility associated with anovulation March 26, 2025 2:10pm Marijuana use March 26, 2025 2:10 pm Obesity affecting March 26 025 2:10pm PCOS (polycystic ovarian syndrome) March 26, 2025 2:10pm March 26, 2025 2:10 pm Rh negative status during March 26, 2025 2:10pm Sleep apnea March 26, 2025 2:10 pm Supervision of high-risk March 26, 2025 2:10pm Abnormal glucose affecting Mar 9:54am AMA (advanced maternal age) multigravida 35+ April 07, 2025 9:54am Conceived by in vitro fertilization April 07, 2025 9:54am Depression with anxiety April 07, 2025 9 :54am Family history of genetic disorder April 07, 2025 9:54am GERD (gastroesophageal reflux disease) J gamaliel 2024 9:54am H/O section April 07, 2025 9:54 am Infertility associated with anovulation April 07, 2025 9:54am Marijuana use April 07, 2025 9:54a m Obesity affecting April 07 9:54am PCOS (polycystic ovarian syndrome) April 07, 2025 9:54am April 07, 2025 9:54a m Rh negative status during April 07, 2025 9:54am Sleep apnea April 07, 2025 9:54a m Supervision of high-risk April 07, 2025 9:54am Abnormal glucose affecting Mar 8:47am AMA (advanced maternal age) multigravida 35+ April 19, 2025 8:47am Conceived by in vitro fertilization April 19, 2025 8:47am Family history of genetic disorder April 19, 2025 8:47am H/O section April 19, 2025 8:4 7am Infertility associated with anovulation April 19, 2025 8:47am Itching April 19, 2025 8:47 am Marijuana use April 19, 2025 8:47 am Obesity affecting April 19, 025 8:47am April 19, 2025 8:47 am Rh negative status during April 19, 2025 8:47am Sleep apnea April 19, 2025 8:47 am Supervision of high-risk April 19, 2025 8:47am H/O biophysical profile with non-s tress test April 19, 2025 8:47am Abnormal glucose affecting Pablo y 2024 1:59pm AMA (advanced maternal age) multigravida 35+ April 20, 2025 1:59pm Conceived by in vitro fertilization April 20, 2025 1:59pm Depression with anxiety April 20, 2025 1:59pm Family history of genetic disorder April 20, 2025 1:59pm GERD (gastroesophageal reflux disease) J gamaliel 2024 1:59pm H/O section April 20, 2025 1:5 9pm Infertility associated with anovulation April 20, 2025 1:59pm Itching April 20, 2025 1:59 pm Marijuana use April 20, 2025 1:59 pm Obesity affecting April 20, 1:59pm PCOS (polycystic ovarian syndrome) April 20, 2025 1:59pm April 20, 2025 1:59 pm Rh negative status during April 20, 2025 1:59pm Sleep apnea April 20, 2025 1:59 pm Supervision of high-risk April 20, 2025 1:59pm Chief Complaint Admit Date 20 WK OB *DOC ONLY* January 01, 2025 10:0 3am 24 WK OB *DOC ONLY* January 29, 2025 10:15a m 28 WK OB/GLUCOSE *DOC ONLY* February 26 8:34am SCREENING FOR DIABETES MELLITUS February 6:51am 30 WK OB *DOC ONLY* March 10, 2025 2:11 pm *rs 8/7 appt* 32 WK OB *DOC ONLY* March 012024 2:10pm 34 wk ob *Doc Only* April 07, 2025 9:54a m WELLBEING April 15, 2025 1:20 pm EXTENDED MONITORING/ WELLBEING April 19, 2025 8:47am EXTENDED MONITORING/ WELLBEING April 19, 2025 3:42pm 36 wk ob *Doc Only* April 20, 2025 1:59 pm WELLBEING April 22, 2025 8:43 am Chief Complaint Admit Date 20 WK OB *DOC ONLY* January 01, 2025 10:0 3am 24 WK OB *DOC ONLY* January 29, 2025 10:15a m 28 WK OB/GLUCOSE *DOC ONLY* February 26 8:34am SCREENING FOR DIABETES MELLITUS February 6:51am 30 WK OB *DOC ONLY* March 10, 2025 2:11 pm *rs 8/7 appt* 32 WK OB *DOC ONLY* March 012024 2:10pm 34 wk ob *Doc Only* April 07, 2025 9:54a m WELLBEING April 15, 2025 1:20 pm EXTENDED MONITORING/ WELLBEING April 19, 2025 8:47am EXTENDED MONITORING/ WELLBEING April 19, 2025 3:42pm 36 wk ob *Doc Only* April 20, 2025 1:59 pm WELLBEING April 22, 2025 8:43 am 37 WK OB *CSECTION/JV April 28, 2025 2: 01pm Reason for Visit Admit Date AMA (advanced maternal age) multigravida 35+ January [...] 2025 10:0 3am Obesity affecting January 01, 10:03am PCOS (polycystic ovarian syndrome) January 01, [...] m Supervision of high-risk January 302024 8:34am Abnormal glucose affecting Teo e 2024 2:11pm AMA (advanced maternal age) multigravida 35+ March 10, 2025 2:11pm Conceived by in vitro fertilization March 10, 2025 2:11pm Depression with anxiety March 10, 2025 2:11pm Family history of genetic disorder March 10, 2025 2:11pm GERD (gastroesophageal reflux disease) J [facility] 2024 2:11pm H/O section March 10, 2025 2:1 1pm Infertility associated with anovulation March 10, 2025 2:11pm Marijuana use March 10, 2025 2:11 pm Obesity affecting March 10, 2 025 2:11pm PCOS (polycystic ovarian syndrome) March 10, 2025 2:11pm March 10, 2025 2:11 pm Rh negative status during March 10, 2025 2:11pm Sleep apnea March 10, 2025 2:11 pm Supervision of high-risk March 10, 2025 2:11pm Abnormal glucose affecting Teo e 2024 2:10pm AMA (advanced maternal age) multigravida 35+ March 26, 2025 2:10pm Conceived by in vitro fertilization March 26, 2025 2:10pm Depression with anxiety March 26, 2025 2:10pm Family history of genetic disorder March 26, 2025 2:10pm GERD (gastroesophageal reflux disease) J [facility] 2024 2:10pm H/O section March 26, 2025 2:1 0pm Infertility associated with anovulation March 26, 2025 2:10pm Marijuana use March 26, 2025 2:10 pm Obesity affecting March 26 2:10pm PCOS (polycystic ovarian syndrome) March 26, 2025 2:10pm March 26, 2025 2:10 pm Rh negative status during March 26, 2025 2:10pm Sleep apnea March 26, 2025 2:10 pm Supervision of high-risk March 26, 2025 2:10pm Abnormal glucose affecting Pablo y 2024 9:54am AMA (advanced maternal age) multigravida 35+ April 07, 2025 9:54am Conceived by in vitro fertilization April 07, 2025 9:54am Depression with anxiety April 07, 2025 9 :54am Family history of genetic disorder April 07, 2025 9:54am GERD (gastroesophageal reflux disease) J [facility] 2024 9:54am H/O section April 07, 2025 9:54 am Infertility associated with anovulation April 07, 2025 9:54am Marijuana use April 07, 2025 9:54a m Obesity affecting April 07 9:54am PCOS (polycystic ovarian syndrome) April 07, 2025 9:54am April 07, 2025 9:54a m Rh negative status during April 07, 2025 9:54am Sleep apnea April 07, 2025 9:54a m Supervision of high-risk April 07, 2025 9:54am Abnormal glucose affecting Mar 8:47am AMA (advanced maternal age) multigravida 35+ April 19, 2025 8:47am Conceived by in vitro fertilization April 19, 2025 8:47am Family history of genetic disorder April 19, 2025 8:47am H/O section April 19, 2025 8:4 7am Infertility associated with anovulation April 19, 2025 8:47am Itching April 19, 2025 8:47 am Marijuana use April 19, 2025 8:47 am Obesity affecting April 19, 025 8:47am April 19, 2025 8:47 am Rh negative status during April 19, 2025 8:47am Sleep apnea April 19, 2025 8:47 am Supervision of high-risk April 19, 2025 8:47am H/O biophysical profile with non-s tress test April 19, 2025 8:47am Abnormal glucose affecting Mar 1:59pm AMA (advanced maternal age) multigravida 35+ April 20, 2025 1:59pm Conceived by in vitro fertilization April 20, 2025 1:59pm Depression with anxiety April 20, 2025 1:59pm Family history of genetic disorder April 20, 2025 1:59pm GERD (gastroesophageal reflux disease) J gamaliel 2024 1:59pm H/O section April 20, 2025 1:5 9pm Infertility associated with anovulation April 20, 2025 1:59pm Itching April 20, 2025 1:59 pm Marijuana use April 20, 2025 1:59 pm Obesity affecting April 20, 2 025 1:59pm PCOS (polycystic ovarian syndrome) April 20, 2025 1:59pm April 20, 2025 1:59 pm Rh negative status during April 20, 2025 1:59pm Sleep apnea April 20, 2025 1:59 pm Supervision of high-risk April 20, 2025 1:59pm Abnormal glucose affecting Mar 2:01pm AMA (advanced maternal age) multigravida 35+ April 28, 2025 2:01pm Conceived by in vitro fertilization April 28, 2025 2:01pm Depression with anxiety April 28, 2025 2:01pm Family history of genetic disorder April 28, 2025 2:01pm GERD (gastroesophageal reflux disease) J gamaliel 2024 2:01pm H/O section April 28, 2025 2:0 1pm Infertility associated with anovulation April 28, 2025 2:01pm Itching April 28, 2025 2:01 pm Marijuana use April 28, 2025 2:01 pm Obesity affecting April 28, 2 025 2:01pm PCOS (polycystic ovarian syndrome) April 28, 2025 2:01pm April 28, 2025 2:01 pm Rh negative status during April 28, 2025 2:01pm Sleep apnea April 28, 2025 2:01 pm Supervision of high-risk April 28, 2025 2:01pm Chief Complaint Admit Date 24 WK OB *DOC ONLY* January 29, 2025 10:15a m 28 WK OB/GLUCOSE *DOC ONLY* February 26 8:34am SCREENING FOR DIABETES MELLITUS February 6:51am 30 WK OB *DOC ONLY* March 10, 2025 2:11 pm *rs 8/7 appt* 32 WK OB *DOC ONLY* March 012024 2:10pm 34 wk ob *Doc Only* April 07, 2025 9:54a m WELLBEING April 15, 2025 1:20 pm EXTENDED MONITORING/ WELLBEING April 19, 2025 8:47am EXTENDED MONITORING/ WELLBEING April 19, 2025 3:42pm 36 wk ob *Doc Only* April 20, 2025 1:59 pm WELLBEING April 22, 2025 8:43 am 37 WK OB *CSECTION/JV April 28, 2025 2: 01pm 38 WK OB *CSECTION/JV May 06, 2025 2 :05pm Reason for Visit Admit Date AMA (advanced maternal age) multigravida 35+ January [...] [id number] 8:34am GERD (gastroesophageal reflux disease) M 2024 8:34am H/O section February 26, 2025 8:34 am Infertility associated with anovulation February 26, 2025 8:34am Marijuana use February 26, 2025 8:34a m Obesity affecting February 26 8:34am PCOS (polycystic ovarian syndrome) January 302024 8:34am February 26, 2025 8:34a m Rh negative status during February 26, 2025 8:34am Sleep apnea February 26, 2025 8:34a m Supervision of high-risk January 302024 8:34am Abnormal glucose affecting Teo e 2024 2:11pm AMA (advanced maternal age) multigravida 35+ March 10, 2025 2:11pm Conceived by in vitro fertilization March 10, 2025 2:11pm Depression with anxiety March 10, 2025 2:11pm Family history of genetic disorder March 10, 2025 2:11pm GERD (gastroesophageal reflux disease) J une 2024 2:11pm H/O section March 10, 2025 2:1 1pm Infertility associated with anovulation March 10, 2025 2:11pm Marijuana use March 10, 2025 2:11 pm Obesity affecting March 10, 2 025 2:11pm PCOS (polycystic ovarian syndrome) March 10, 2025 2:11pm March 10, 2025 2:11 pm Rh negative status during March 10, 2025 2:11pm Sleep apnea March 10, 2025 2:11 pm Supervision of high-risk March 10, 2025 2:11pm Abnormal glucose affecting Teo e 2024 2:10pm AMA (advanced maternal age) multigravida 35+ March 26, 2025 2:10pm Conceived by in vitro fertilization March 26, 2025 2:10pm Depression with anxiety March 26, 2025 2:10pm Family history of genetic disorder March 26, 2025 2:10pm GERD (gastroesophageal reflux disease) J une 2024 2:10pm H/O section March 26, 2025 2:1 0pm Infertility associated with anovulation March 26, 2025 2:10pm Marijuana use March 26, 2025 2:10 pm Obesity affecting March 26 2:10pm PCOS (polycystic ovarian syndrome) March 26, 2025 2:10pm March 26, 2025 2:10 pm Rh negative status during March 26, 2025 2:10pm Sleep apnea March 26, 2025 2:10 pm Supervision of high-risk March 26, 2025 2:10pm Abnormal glucose affecting Pablo 2024 9:54am AMA (advanced maternal age) multigravida 35+ April 07, 2025 9:54am Conceived by in vitro fertilization April 07, 2025 9:54am Depression with anxiety April 07, 2025 9 :54am Family history of genetic disorder April 07, 2025 9:54am GERD (gastroesophageal reflux disease) J [facility] 2024 9:54am H/O section April 07, 2025 9:54 am Infertility associated with anovulation April 07, 2025 9:54am Marijuana use April 07, 2025 9:54a m Obesity affecting April 07 9:54am PCOS (polycystic ovarian syndrome) April 07, 2025 9:54am April 07, 2025 9:54a m Rh negative status during April 07, 2025 9:54am Sleep apnea April 07, 2025 9:54a m Supervision of high-risk April 07, 2025 9:54am Abnormal glucose affecting Mar 8:47am AMA (advanced maternal age) multigravida 35+ April 19, 2025 8:47am Conceived by in vitro fertilization April 19, 2025 8:47am Family history of genetic disorder April 19, 2025 8:47am H/O section April 19, 2025 8:4 7am Infertility associated with anovulation April 19, 2025 8:47am Itching April 19, 2025 8:47 am Marijuana use April 19, 2025 8:47 am Obesity affecting April 19, 025 8:47am April 19, 2025 8:47 am Rh negative status during April 19, 2025 8:47am Sleep apnea April 19, 2025 8:47 am Supervision of high-risk April 19, 2025 8:47am H/O biophysical profile with non-s tress test April 19, 2025 8:47am Abnormal glucose affecting Mar 1:59pm AMA (advanced maternal age) multigravida 35+ April 20, 2025 1:59pm Conceived by in vitro fertilization April 20, 2025 1:59pm Depression with anxiety April 20, 2025 1:59pm Family history of genetic disorder April 20, 2025 1:59pm GERD (gastroesophageal reflux disease) J gamaliel 2024 1:59pm H/O section April 20, 2025 1:5 9pm Infertility associated with anovulation April 20, 2025 1:59pm Itching April 20, 2025 1:59 pm Marijuana use April 20, 2025 1:59 pm Obesity affecting April 20, 2 025 1:59pm PCOS (polycystic ovarian syndrome) April 20, 2025 1:59pm April 20, 2025 1:59 pm Rh negative status during April 20, 2025 1:59pm Sleep apnea April 20, 2025 1:59 pm Supervision of high-risk April 20, 2025 1:59pm Abnormal glucose affecting Mar 2:01pm AMA (advanced maternal age) multigravida 35+ April 28, 2025 2:01pm Conceived by in vitro fertilization April 28, 2025 2:01pm Depression with anxiety April 28, 2025 2:01pm Family history of genetic disorder April 28, 2025 2:01pm GERD (gastroesophageal reflux disease) J gamaliel 2024 2:01pm H/O section April 28, 2025 2:0 1pm Infertility associated with anovulation April 28, 2025 2:01pm Itching April 28, 2025 2:01 pm Marijuana use April 28, 2025 2:01 pm Obesity affecting April 28, 025 2:01pm PCOS (polycystic ovarian syndrome) April 28, 2025 2:01pm April 28, 2025 2:01 pm Rh negative status during April 28, 2025 2:01pm Sleep apnea April 28, 2025 2:01 pm Supervision of high-risk April 28, 2025 2:01pm Abnormal glucose affecting Apr 2:05pm AMA (advanced maternal age) multigravida 35+ May 06, 2025 2:05pm Conceived by in vitro fertilization 2024 2:05pm Depression with anxiety May 06, 2025 2:05pm Family history of genetic disorder Aprus 2024 2:05pm GBS (group B Streptococcus c arrier), +RV culture, currently May 06, 2025 2:05pm GERD (gastroesophageal reflux disease) A ugust 2024 2:05pm H/O section May 06, 2025 2: 05pm Infertility associated with anovulation May 06, 2025 2:05pm Itching May 06, 2025 2:0 5pm Marijuana use May 06, 2025 2:0 5pm Obesity affecting May 06, 2025 2:05pm PCOS (polycystic ovarian syndrome) 2024 2:05pm May 06, 2025 2:0 5pm Rh negative status during 2024 2:05pm Sleep apnea May 06, 2025 2:0 5pm Supervision of high-risk 2024 2:05pm Additional Source Comments Reason for Visit (unrecogniz [...] BILATERAL MAMMO DIAGNOSTIC BILATERAL Lawrence Young MD [address] [place] [address] Referral ID Status Reason Start Date Expiration Date V isits Requested Visits Authorized [id number] New Request 12/19/2022 01/13/2024 1 1 Reason Comments Cough Fevers x4 days Specialty Diagnoses / Procedures Referred By Adia vicente Referred To Contact Radiology Diagnoses Encounter for assisted reproductive fertility procedure cycle Procedures US PELVIS TRANSABDOMINAL WITH TRANSVAGINAL US pelvis transvaginal Levon Braxton MD [address] [place] [address] Referral ID Status Reason Start Date Expiration Date Visits Requested Visits Authorized [id number] Pending Review Perform Procedure 06/11/2024 06/11/2025 1 1 Specialty Diagnoses / Procedures Referred By Adia vicente Referred To Contact Radiology Diagnoses Encounter for assisted reproductive fertility procedure cycle Procedures US PELVIS TRANSABDOMINAL WITH TRANSVAGINAL Levon Braxton MD [address] [place] [address] Referral ID Status Reason Start Date Expiration Date Visits Requested Visits Authorized [id number] Authorized Perform Procedure 06/15/2024 06/15/2025 1 1 Referral ID Status Reason Start Date Expiration Date Visits Requested Visits Authorized [id number] Authorized Perform Procedure 06/15/2024 06/15/2025 1 1 Referral ID Status Reason Start Date Expiration Date Visits Requested Visits Authorized [id number] Authorized Perform Procedure 06/15/2024 06/15/2025 1 1 Reason Comments [place], Max Tone, PA-C - 07/29/2019 1:14 PM Mirta Davenport RN - 07/29/2019 12:15 PM Mirta Davenport RN - 07/29/2019 10:40 AM Rebeca Jiménez RN - 07/29/2019 10:25 AM EDT ED Notes (unrecognized secti on and content) [facility] EMERGENCY DEPARTMENT NAME: Barby Caballero PCP: Marta Del Valle MD AGE: 28 y.o. CSN: [id number] ED Course / Medical Decision Making: After [...] does note that she has a Halloween alliance party she is hosting this weekend and is [...] file Gets together: Not on file Attends taoist service: Not on file Active member of [...] Procedure Abnormality Status --------- ------ CBC Auto Differential[[id number]] Abnormal Final result Please view results for [...] Otherwise unremarkable right upper quadrant abdominal ultrasound. [employer] Workstation ID: [id number] No current facility-administered medications [...] for ER worsening or new concerning symptoms [address] [facility] [address] Contact information for after-discharge care Follow-up information has not been specified. New Prescriptions ondansetron (Zofran ODT) 4 MG disintegrating tablet Dissolve 1 (one) tablet (4 mg total) on top of tongue every 6 (six) hours as needed for nausea . Max Alan MPAS PA-C Emergency Department Physician Christian Counselor (Please note that portions of this note [...] with steady gait Associated Order(s): EKG 12-lead [facility] EM[facility] PCP - Marta Del Valle MD Chief Complaint Patient presents with Chest Pain HPI 28-year-old white female with a history of reflux, depression, anxiety, and irritable bowel states that shortly after 6 PM she had some Slovak fries and drank a beer and then [...] Marta Del Valle MD. Specialty: Internal Medicine [address] [place] [address] [facility] [address] Contact information for after-discharge care Follow-up information [...] file Gets together: Not on file Attends taoist service: Not on file Active member of [...] atelectatic change with no other acute process. [employer] Workstation ID: [id number] No results found. Medications Ordered/Given During ED Visit Medications aspirin chewable tablet 324 mg (324 mg Oral Given 03/19/19 0015) lidocaine viscous 2% 10 mL and maalox plus 30 mL (GI COCKTAIL) 40 mL solution (40 mL Oral Given 03/19/196) ketorolac (TORADOL) injection 30 mg (30 mg Intravenous Given 03/19/19 0116) ondansetron (ZOFRAN) injection 4 mg (4 mg Intravenous Given 03/19/19 0114) EKG 12-lead Date/Time: 03/18/2019 11:49 PM Performed [...] expedite correspondence this note was generated by [employer] voice recognition software. Some grammatical or spelling [...] Procedure Abnormality Status --------- ------ CBC Auto Differential[[id number]] Abnormal Final result Please view results for [...] took protonix at dinner which she had hungarian fries and 1 [place] drink. documented [...] section and content) DATE CREATED AUTHOR [facility] DATE CREATED AUTHOR AUTHOR'S ORGANIZ ATION 08/23/2020 [facility] DATE CREATED AUTHOR AUTHOR'S ORGANIZ ATION 10/04/2021 [facility] DATE CREATED AUTHOR AUTHOR'S ORGANIZ ATION 10/06/2021 [facility] DATE CREATED AUTHOR AUTHOR'S ORGANIZ ATION 10/08/2021 [facility] DATE CREATED AUTHOR AUTHOR'S ORGANIZ ATION 05/04/2023 [facility] DATE CREATED AUTHOR AUTHOR'S ORGANIZ ATION 10/09/2024 [facility] DATE CREATED AUTHOR AUTHOR'S ORGANIZ ATION 10/09/2024 [facility] DATE CREATED AUTHOR AUTHOR'S ORGANIZ ATION 11/05/[address] [facility] DATE CREATED AUTHOR AUTHOR'S ORGANIZ ATION 05/08/2025 [facility] DATE CREATED AUTHOR AUTHOR'S ORGANIZ ATION 05/10/[address] [facility] Care Teams (unrecognized sec tion and content) Dredge Master Relationship Specialty Start Date End Date Marta Del Valle MD PCP - General Internal Medicine 12/09/13 Dredge Master Relationship Specialty Start Date End Date Marta Del Valle MD PCP - General Internal Medicine 12/09/13 Faith Starkey MD [address] [phone] PCP - OBGYN Obstetrics & Gynecology 07/17/21 Dredge Master Relationship Specialty Start Date End Date Marta Del Valle MD PCP - General Internal Medicine 12/09/13 Faith Starkey MD [address] [facility] [address] [place] [phone] PCP - OBGYN Obstetrics & Gynecology 07/17/21 Dredge Master Relationship Specialty Start Date End Date Faith Starkey MD [address] [facility] [address] [place] [phone] PCP - OBGYN Obstetrics & Gynecology 07/17/21 Marta Del Valle MD [address] [place] [address], [place] [phone] PCP - General Internal Medicine 01/09/23 Lawrence Young MD [address] [place] [address], [place] [phone] Referring Provider Internal Medicine 01/09/23 Team Status: Active Member Role Status Dates No Primary Care Physician Primary Care Provider Active Team Status: Inactive Member Role Status Dates Dr. Edel Bullock , DO Attending Provider Activ e JOSH LOZANO Referring Provider Active Team Status: Active Member Role Status Dates Dr. Edel Bullock DO Attending Provider, Referring Provider, Other Provider Active No Primary Care Physician Primary Care Provider Active Team Status: Inactive Member Role Status Dates Dr. Edel Bullock DO Attending Provider, Refe rring Provider Active No Primary Care Physician Primary Care Provider Active Dredge Master Relationship Specialty Start Date End Date Faith Starkey MD [address] [phone] PCP - OBGYN Obstetrics & Gynecology 07/17/21 Marta Del Valle MD [address] [place] [address], [place] [phone] PCP - General Internal Medicine 01/09/23 Lawrence Young MD [address] [place] [phone] Referring Provider Internal Medicine 01/09/23 Dredge Master Relationship Specialty Start Date [place] [address] [place] [phone] PCP - General Internal Medicine 08/14/24 Dredge Master Relationship Specialty Start Date End Date Generic Provider, [place] [address] PCP - General Manager Special Events 06/15/24 Dredge Master Relationship Specialty Start Date End Date Generic Provider, [place] [address] PCP - General Manager Special Events 06/15/24 Dredge Master Relationship Specialty Start Date End Date Generic Provider, [place] [address] PCP - General Manager Special Events 06/15/24 Dredge Master Relationship Specialty Start Date End Date Generic Provider, [place] [address] PCP - General Manager Special Events 06/15/24 Dredge Master Relationship Specialty Start Date [place] [address] [place] [phone] PCP - General Internal Medicine 08/14/24 Dredge Master Relationship Specialty Start Date [place] [address] [place] [phone] PCP - General Internal Medicine 08/14/24 Team [...] Referring Provider Active Start: February 26, 2025 Team Status: Inactive Member Role Status Dates Dr. Steffen Eisenberg MD Primary Care Provider Active Start: February 26, 2025 End: February 26, 2025 Dr. Apple Lao MD Attending Provider Active Start: February 26, 2025 End: February 26, 2025 Dr. Apple Lao MD Referring Provider Active Start: February 26, 2025 End: February 26, 2025 Team Status: Inactive Member Role Status Dates Dr. Steffen Eisenberg MD Primary Care Provider Active Start: March 05, 2025 End: March 05, 2025 Kiley Jain CNM Attending Provider Active S tart: March 05, 2025 End: March 05, 2025 Kiley Jain CNM Referring Provider Active S tart: March 05, 2025 End: March 05, 2025 Team Status: Inactive Member Role Status Dates Dr. Steffen Eisenberg MD Primary Care Provider Active Start: March 10, 2025 End: March 10, 2025 Dr. Steffen Eisenberg MD Referring Provider Active Start: March 10, 2025 End: March 10, 2025 Dr. Edel Bullock DO Attending Provider Activ e Start: March 10, 2025 End: March 10, 2025 Team Status: Inactive Member Role Status Dates Dr. Steffen Eisenberg MD Primary Care Provider Active Start: March 10, 2025 End: March 10, 2025 Dr. Edel Bullock DO Attending Provider Activ e Start: March 10, 2025 End: March 10, 2025 Dr. Edel Bullock DO Referring Provider Activ e Start: March 10, 2025 End: March 10, 2025 Team Status: Active Member Role/Relationship Status Dates Dr. Steffen Eisenberg MD Primary Care Provider Active Team Status: Inactive Member Role/Relationship Status Dates Dr. Steffen Eisenberg MD Primary Care Provider Active Start: December 03, 2024 End: December 03, 2024 Dr. Steffen Eisenberg MD Referring Provider Active Start: December 03, 2024 End: December 03, 2024 Dr. Edel Bullock DO Attending Provider Activ e Start: December 03, 2024 End: December 03, 2024 Team Status: Inactive Member Role/Relationship Status Dates Dr. Steffen Eisenberg MD Primary Care Provider Active Start: January 01, 2025 End: January 01, 2025 Dr. Steffen Eisenberg MD Referring Provider Active Start: January 01, 2025 End: January 01, 2025 Dr. Apple Lao MD Attending Provider Active Start: January 01, 2025 End: January 01, 2025 Team Status: Inactive Member Role/Relationship Status Dates Dr. Steffen Eisenberg MD Primary Care Provider Active Start: January 29, 2025 End: January 29, 2025 Dr. Steffen Eisenberg MD Referring Provider Active Start: January 29, 2025 End: January 29, 2025 Dr. Edel Bullock DO Attending Provider Activ e Start: January 29, 2025 End: January 29, 2025 Team Status: Inactive Member Role/Relationship Status Dates Dr. Steffen Eisenberg MD Primary Care Provider Active Start: February 26, 2025 End: February 26, 2025 Dr. Steffen Eisenberg MD Referring Provider Active Start: February 26, 2025 End: February 26, 2025 Dr. Apple Lao MD Attending Provider Active Start: February 26, 2025 End: February 26, 2025 Team Status: Inactive Member Role/Relationship Status Dates Dr. Steffen Eisenberg MD Primary Care Provider Active Start: February 26, 2025 End: February 26, 2025 Dr. Apple Lao MD Attending Provider Active Start: February 26, 2025 End: February 26, 2025 Dr. Apple Lao MD Referring Provider Active Start: February 26, 2025 End: February 26, 2025 Team Status: Inactive Member Role/Relationship Status Dates Dr. Steffen Eisenberg MD Primary Care Provider Active Start: March 05, 2025 End: March 05, 2025 Kiley Jain CNM Attending Provider Active S tart: March 05, 2025 End: March 05, 2025 Kiley Jain CNM Referring Provider Active S tart: March 05, 2025 End: March 05, 2025 Team Status: Inactive Member Role/Relationship Status Dates Dr. Steffen Eisenberg MD Primary Care Provider Active Start: March 10, 2025 End: March 10, 2025 Dr. Steffen Eisenberg MD Referring Provider Active Start: March 10, 2025 End: March 10, 2025 Dr. Edel Bullock DO Attending Provider Activ e Start: March 10, 2025 End: March 10, 2025 Team Status: Inactive Member Role/Relationship Status Dates Dr. Steffen Eisenberg MD Primary Care Provider Active Start: March 10, 2025 End: March 10, 2025 Dr. Edel Bullock DO Attending Provider Activ e Start: March 10, 2025 End: March 10, 2025 Dr. Edel Bullock DO Referring Provider Activ e Start: March 10, 2025 End: March 10, 2025 Team Status: Inactive Member Role/Relationship Status Dates Dr. Steffen Eisenberg MD Primary Care Provider Active Start: March 26, 2025 End: March 26, 2025 Dr. Steffen Eisenberg MD Referring Provider Active Start: March 26, 2025 End: March 26, 2025 Dr. Edel Bullock DO Attending Provider Activ e Start: March 26, 2025 End: March 26, 2025 Team Status: Inactive Member Role/Relationship Status Dates Dr. Steffen Eisenberg MD Primary Care Provider Active Start: January 01, 2025 End: January 01, 2025 Dr. Steffen Eisenberg MD Referring Provider Active Start: January 01, 2025 End: January 01, 2025 Dr. Apple Lao MD Attending Provider Active Start: January 01, 2025 End: January 01, 2025 Team Status: Inactive Member Role/Relationship Status Dates Dr. Steffen Eisenberg MD Primary Care Provider Active Start: January 29, 2025 End: January 29, 2025 Dr. Steffen Eisenberg MD Referring Provider Active Start: January 29, 2025 End: January 29, 2025 Dr. Edel Bullock DO Attending Provider Activ e Start: January 29, 2025 End: January 29, 2025 Team Status: Inactive Member Role/Relationship Status Dates Dr. Steffen Eisenberg MD Primary Care Provider Active Start: February 26, 2025 End: February 26, 2025 Dr. Steffen Eisenberg MD Referring Provider Active Start: February 26, 2025 End: February 26, 2025 Dr. Apple Lao MD Attending Provider Active Start: February 26, 2025 End: February 26, 2025 Team Status: Inactive Member Role/Relationship Status Dates Dr. Steffen Eisenberg MD Primary Care Provider Active Start: February 26, 2025 End: February 26, 2025 Dr. Apple Lao MD Attending Provider Active Start: February 26, 2025 End: February 26, 2025 Dr. Apple Lao MD Referring Provider Active Start: February 26, 2025 End: February 26, 2025 Team Status: Inactive Member Role/Relationship Status Dates Dr. Steffen Eisenberg MD Primary Care Provider Active Start: March 05, 2025 End: March 05, 2025 Kiley Jain CNM Attending Provider Active S tart: March 05, 2025 End: March 05, 2025 Kiley Jain CNM Referring Provider Active S tart: March 05, 2025 End: March 05, 2025 Team Status: Inactive Member Role/Relationship Status Dates Dr. Steffen Eisenberg MD Primary Care Provider Active Start: March 10, 2025 End: March 10, 2025 Dr. Steffen Eisenberg MD Referring Provider Active Start: March 10, 2025 End: March 10, 2025 Dr. Edel Bullock DO Attending Provider Activ e Start: March 10, 2025 End: March 10, 2025 Team Status: Inactive Member Role/Relationship Status Dates Dr. Steffen Eisenberg MD Primary Care Provider Active Start: March 10, 2025 End: March 10, 2025 Dr. Edel Bullock DO Attending Provider Activ e Start: March 10, 2025 End: March 10, 2025 Dr. Edel Bullock DO Referring Provider Activ e Start: March 10, 2025 End: March 10, 2025 Team Status: Inactive Member Role/Relationship Status Dates Dr. Steffen Eisenberg MD Primary Care Provider Active Start: March 26, 2025 End: March 26, 2025 Dr. Steffen Eisenberg MD Referring Provider Active Start: March 26, 2025 End: March 26, 2025 Dr. Edel Bullock DO Attending Provider Activ e Start: March 26, 2025 End: March 26, 2025 Team Status: Inactive Member Role/Relationship Status Dates Dr. Steffen Eisenberg MD Primary Care Provider Active Start: April 07, 2025 End: April 07, 2025 Dr. Steffen Eisenberg MD Referring Provider Active Start: April 07, 2025 End: April 07, 2025 Dr. Edel Bullock DO Attending Provider Activ e Start: April 07, 2025 End: April 07, 2025 Team Status: Active Member Role/Relationship Status Dates Dr. Steffen Eisenberg MD Primary Care Provider Active Start: April 07, 2025 Dr. Edel Bullock DO Attending Provider Activ e Start: April 07, 2025 Dr. Edel Bullock DO Referring Provider Activ e Start: April 07, 2025 Team Status: Inactive Member Role/Relationship Status Dates Dr. Steffen Eisenberg MD Primary Care Provider Active Start: April 07, 2025 End: April 07, 2025 Dr. Edel Bullock DO Attending Provider Activ e Start: April 07, 2025 End: April 07, 2025 Dr. Edel Bullock DO Referring Provider Activ e Start: April 07, 2025 End: April 07, 2025 Team Status: Active Member Role/Relationship Status Dates Dr. Steffen Eisenberg MD Primary Care Provider Active Start: April 15, 2025 Dr. Edel Bullock DO Attending Provider Activ e Start: April 15, 2025 Dr. Edel Bullock DO Referring Provider Activ e Start: April 15, 2025 Team Status: Inactive Member Role/Relationship Status Dates Dr. Steffen Eisenberg MD Primary Care Provider Active Start: April 19, 2025 End: April 19, 2025 Dr. Edel Bullock DO Other Provider Active Start: April 19, 2025 End: April 19, 2025 Kiley Jain CNM Attending Provider Active S tart: April 19, 2025 End: April 19, 2025 Kiley Jain CNM Referring Provider Active S tart: April 19, 2025 End: April 19, 2025 Team Status: Active Member Role/Relationship Status Dates Dr. Steffen Eisenberg MD Primary Care Provider Active Start: April 19, 2025 Dr. Edel Bullock DO Other Provider Active Start: April 19, 2025 Kiley Jain CNM Attending Provider Active S tart: April 19, 2025 Kiley Jain CNM Referring Provider Active S tart: April 19, 2025 Kiley Jain CNM Other Provider Active Start : April 19, 2025 Team Status: Inactive Member Role/Relationship Status Dates Dr. Steffen Eisenberg MD Primary Care Provider Active Start: April 20, 2025 End: April 20, 2025 Dr. Steffen Eisenberg MD Referring Provider Active Start: April 20, 2025 End: April 20, 2025 Dr. Apple Lao MD Attending Provider Active Start: April 20, 2025 End: April 20, 2025 Team Status: Inactive Member Role/Relationship Status Dates Dr. Steffen Eisenberg MD Primary Care Provider Active Start: April 15, 2025 End: April 15, 2025 Dr. Edel Bullock DO Attending Provider Activ e Start: April 15, 2025 End: April 15, 2025 Dr. Edel Bullock DO Referring Provider Activ e Start: April 15, 2025 End: April 15, 2025 Team Status: Inactive Member Role/Relationship Status Dates Dr. Steffen Eisenberg MD Primary Care Provider Active Start: April 22, 2025 End: April 22, 2025 Dr. Edel Bullock DO Attending Provider Activ e Start: April 22, 2025 End: April 22, 2025 Dr. Edel Bullock DO Referring Provider Activ e Start: April 22, 2025 End: April 22, 2025 Team Status: Inactive Member Role/Relationship Status Dates Dr. Steffen Eisenberg MD Primary Care Provider Active Start: April 28, 2025 End: April 28, 2025 Dr. Steffen Eisenberg MD Referring Provider Active Start: April 28, 2025 End: April 28, 2025 Dr. Edel Bullock DO Attending Provider Activ e Start: April 28, 2025 End: April 28, 2025 Team Status: Inactive Member Role/Relationship Status Dates Dr. Steffen Eisenberg MD Primary Care Provider Active Start: January 29, 2025 End: January 29, 2025 Dr. Steffen Eisenberg MD Referring Provider Active Start: January 29, 2025 End: January 29, 2025 Dr. Edel Bullock DO Attending Provider Activ e Start: January 29, 2025 End: January 29, 2025 Team Status: Inactive Member Role/Relationship Status Dates Dr. Steffen Eisenberg MD Primary Care Provider Active Start: February 26, 2025 End: February 26, 2025 Dr. Steffen Eisenberg MD Referring Provider Active Start: February 26, 2025 End: February 26, 2025 Dr. Apple Lao MD Attending Provider Active Start: February 26, 2025 End: February 26, 2025 Team Status: Inactive Member Role/Relationship Status Dates Dr. Steffen Eisenberg MD Primary Care Provider Active Start: February 26, 2025 End: February 26, 2025 Dr. Apple Lao MD Attending Provider Active Start: February 26, 2025 End: February 26, 2025 Dr. Apple Lao MD Referring Provider Active Start: February 26, 2025 End: February 26, 2025 Team Status: Inactive Member Role/Relationship Status Dates Dr. Steffen Eisenberg MD Primary Care Provider Active Start: March 05, 2025 End: March 05, 2025 Kiley Jain CNM Attending Provider Active S tart: March 05, 2025 End: March 05, 2025 Kiley Jain CNM Referring Provider Active S tart: March 05, 2025 End: March 05, 2025 Team Status: Inactive Member Role/Relationship Status Dates Dr. Steffen Eisenberg MD Primary Care Provider Active Start: March 10, 2025 End: March 10, 2025 Dr. Steffen Eisenberg MD Referring Provider Active Start: March 10, 2025 End: March 10, 2025 Dr. Edel Bullock DO Attending Provider Activ e Start: March 10, 2025 End: March 10, 2025 Team Status: Inactive Member Role/Relationship Status Dates Dr. Steffen Eisenberg MD Primary Care Provider Active Start: March 10, 2025 End: March 10, 2025 Dr. Edel Bullock DO Attending Provider Activ e Start: March 10, 2025 End: March 10, 2025 Dr. Edel Bullock DO Referring Provider Activ e Start: March 10, 2025 End: March 10, 2025 Team Status: Inactive Member Role/Relationship Status Dates Dr. Steffen Eisenberg MD Primary Care Provider Active Start: March 26, 2025 End: March 26, 2025 Dr. Steffen Eisenberg MD Referring Provider Active Start: March 26, 2025 End: March 26, 2025 Dr. Edel Bullock DO Attending Provider Activ e Start: March 26, 2025 End: March 26, 2025 Team Status: Inactive Member Role/Relationship Status Dates Dr. Steffen Eisenberg MD Primary Care Provider Active Start: April 07, 2025 End: April 07, 2025 Dr. Steffen Eisenberg MD Referring Provider Active Start: April 07, 2025 End: April 07, 2025 Dr. Edel Bullock DO Attending Provider Activ e Start: April 07, 2025 End: April 07, 2025 Team Status: Inactive Member Role/Relationship Status Dates Dr. Steffen Eisenberg MD Primary Care Provider Active Start: April 07, 2025 End: April 07, 2025 Dr. Edel Bullock DO Attending Provider Activ e Start: April 07, 2025 End: April 07, 2025 Dr. Edel Bullock DO Referring Provider Activ e Start: April 07, 2025 End: April 07, 2025 Team Status: Inactive Member Role/Relationship Status Dates Dr. Steffen Eisenberg MD Primary Care Provider Active Start: April 15, 2025 End: April 15, 2025 Dr. Edel Bullock DO Attending Provider Activ e Start: April 15, 2025 End: April 15, 2025 Dr. Edel Bullock DO Referring Provider Activ e Start: April 15, 2025 End: April 15, 2025 Team Status: Inactive Member Role/Relationship Status Dates Dr. Steffen Eisenberg MD Primary Care Provider Active Start: April 19, 2025 End: April 19, 2025 Dr. Edel Bullock DO Other Provider Active Start: April 19, 2025 End: April 19, 2025 Kiley Jain CNM Attending Provider Active S tart: April 19, 2025 End: April 19, 2025 Kiley Jain CNM Referring Provider Active S tart: April 19, 2025 End: April 19, 2025 Team Status: Active Member Role/Relationship Status Dates Dr. Steffen Eisenberg MD Primary Care Provider Active Start: April 19, 2025 Dr. Edel Bullock DO Other Provider Active Start: April 19, 2025 Kiley Jain CNM Attending Provider Active S tart: April 19, 2025 Kiley Jain CNM Referring Provider Active S tart: April 19, 2025 Kiley Jain CNM Other Provider Active Start : April 19, 2025 Team Status: Inactive Member Role/Relationship Status Dates Dr. Steffen Eisenberg MD Primary Care Provider Active Start: April 20, 2025 End: April 20, 2025 Dr. Steffen Eisenberg MD Referring Provider Active Start: April 20, 2025 End: April 20, 2025 Dr. Apple Lao MD Attending Provider Active Start: April 20, 2025 End: April 20, 2025 Team Status: Inactive Member Role/Relationship Status Dates Dr. Steffen Eisenberg MD Primary Care Provider Active Start: April 22, 2025 End: April 22, 2025 Dr. Edel Bullock DO Attending Provider Activ e Start: April 22, 2025 End: April 22, 2025 Dr. Edel Bullock DO Referring Provider Activ e Start: April 22, 2025 End: April 22, 2025 Team Status: Inactive Member Role/Relationship Status Dates Dr. Steffen Eisenberg MD Primary Care Provider Active Start: April 28, 2025 End: April 28, 2025 Dr. Steffen Eisenberg MD Referring Provider Active Start: April 28, 2025 End: April 28, 2025 Dr. Edel Bullock DO Attending Provider Activ e Start: April 28, 2025 End: April 28, 2025 Team Status: Inactive Member Role/Relationship Status Dates Dr. Steffen Eisenberg MD Primary Care Provider Active Start: April 28, 2025 End: April 28, 2025 Dr. Edel Bullock , Attending Provider Activ e Start: April 28, 2025 End: April 28, 2025 Team Status: Active Member Role/Relationship Status Dates Dr. Steffen Eisenberg MD Primary Care Provider Active Start: May 06, 2025 Dr. Steffen Eisenberg MD Referring Provider Active Start: May 06, 2025 Dr. dEel Bullock DO Attending Provider Activ e Start: May 06, 2025 Team Status: Inactive Member Role/Relationship Status Dates Dr. Steffen Eiesnberg MD Primary Care Provider Active Start: May 06, 2025 End: May 06, 2025 Dr. Steffen Eisenberg MD Referring Provider Active Start: May 06, 2025 End: May 06, 2025 Dr. Edel Bullock DO Attending Provider Activ e Start: May 06, 2025 End: May 06, 2025 Goals (unrecognized section and content) Goals may be documented in a n alternate sectionGoals may be documented in an alternate sectionGoals may be documented in an alternate sectionGoals may be documented in an alternate sectionGoals may be documented in an alternate sectionGoals may be documented in an alternate sectionGoals may be documented in an alternate sectionGoals may be documented in an alternate sectionGoals may be documented in an alternate sectionGoals may be documented in an alternate sectionGoals may be documented in an alternate sectionGoals may be documented in an alternate sectionGoals may be documented in an alternate sectionGoals may be documented in an alternate sectionGoals may be documented in an alternate sectionGoals may be documented in an alternate section Source Comments (unrecognize d section and content) In the event this informatio n is protected by the Federal Confidentiality of Alcohol and Drug Abuse Patient Records regulations: The Federal rules restrict any use of the information to criminally investigate or prosecute any alcohol or drug abuse patient.[facility] the event this information is protected by the Federal Confidentiality of Alcohol and Drug Abuse Patient Records regulations: The Federal rules restrict any use of the information to criminally investigate or prosecute any alcohol or drug abuse patient.[facility] FOR RECORDS PERTAINING TO PATIENTS WHO [...] BE BASED ON THE PRIMARY CLINICAL RECORDS. [facility]. provides no warranty or guarantee of the accuracy or completeness of information in this document.
[2025-05-12] MEDS: Lactated Ringers 1,000 ML 999 ML IV (06:15)
[2025-05-12 06:40] LABS: Hematocrit 36.4 % (37-47); Hemoglobin 12.5 g/dL (12.0-15.0); Immature Granulocytes Count 0.160 X10^3/uL (0.0-0.0); Mean Corp Hgb Conc 34.3 g/dL (32-36); Mean Corpuscular Volume 86.7 fL (81-99); Mean Platelet Vol. 9.8 fl (6.2-12.0); NRBC Flagged by Analyzer 0 % (0-5); Platelet Count 252 K/mm3 (150-450); RBC Distribution Width CV 13.4 % (11.6-14.6); RBC Distribution Width SD 42.0 fl (35.1-43.9); Red Blood Count 4.20 M/mm3 (4.2-5.4); White Blood Count 12.4 K/mm3 (4.4-11.0)
--- OUTSIDE RECORDS SUMMARY | 2025-05-12 06:41 | XMS RPT_ITS | CCD ---
Author Organization [facility] Care Team Providers Care Hadoop Analyst Name Role Phone Marta Del Valle Unavailable Marta Liu Primary Care Provider Marta Del Valle Primary Care Provider Marta Del Valle Primary Care Provider MARTA DEL VALLE Primary Care MARLI Alexis Attending Unavailable WILL PRABHAKAR Attending Unavailable MARTA DEL VALLEBETH Primary Care REBECA Brady Primary Care Unavailable NADREW BURCIAGA Admitting UnavailANDREW Cardoso Attending UnavailANDREW Cardoso Referring UnavailJulissa Petersen JJai Admitting Unavailable POMABRILNTSJulissa JJai Consulting Unavailable Julissa HERNANDEZ Attending Unavailable MARTA DEL VALLE [facility] Julissa Saleh Admitting Unavailable MARTA DEL VALLE Primary Care Marta Liu MD Primary Care Provider [phone] Marta Del Valle MD Primary Care Provider Faith Starkey MD Unavailable Marta Del Valle MD Primary Care Provider [phone] Lawrence Young MD Unavailable MARTA DEL VALLE [...] Unavailable Dr. Edel Bullock Referring Provider [phone] Dr. Edel Bullock Other Provider Care Physician, No Primary Primary Care Provider Unavailable Unavailable Primary Care Provider UnavailFaith Ny MD Unavailable Marta Del Valle MD Primary Care Provider [phone] Lawrence Young MD Unavailable [phone] Steffen Eisenberg MD Primary Care Provider Generic Provider MD, No Assigned Pcp Primary Car e Provider Unavailable LEVON BRAXTON Referring Unavailab le GENERIC PROVIDER, NO ASSIGNED PCP Primary Care Unavailable LEOVN BRAXTON Referring Unavailab le GENERIC PROVIDER, NO [...] FAINA, STEFFEN CEFERINO Primary Care Unavailable FAINA, STFEFEN CEFERINO Primary Care Unavailable FAINA, STEFFEN CEFERINO Primary Care Unavailable FAINA, STEFFEN CEFERINO Primary Care Unavailable FAINA, STEFFEN CEFERINO Primary Care Unavailable Unavailable Primary Care Provider Unavailabl e Faina WOLFE, Dr. Crowder Primary Care Provider [phone] Dr. Steffen Eisenberg MD Referring Provider Dr. Edel Bullock DO Attending Provider Zander WOLFE, Dr. Jaffe Attending Provider [phone] Ld Fermin MD Emergency Provider [...] Dr. Crowder Primary Care Provider [phone] Faina WOLFE, Dr. Crowder Referring Provider Twan Diehl DO, Dr. Hollingsworth Attending Provider Twan Diehl DO, Dr. Hollingsworth Other Provider [phone] Kiley Jain CNM Other Provider [phone] Faina WOLFE, Dr. Crowder Primary Care Provider [phone] Faina WOLFE, Dr. Crowder Referring Provider Tashia WOLFE, Dr. Chiu Attending Provider Stanford, Steffen Primary Care Unavailable Kiley Jain Attending Unavailable Kiley Jain Referring Unavailable Stanford, Steffen Attending Unavailable Stanford, Steffen Primary Care Unavailable Faina, Steffen Primary Care Unavailable Edel Bullock Attending Unavailabl e Vande VelEdel gómez Referring Unavailabl e Vande Velde, Edel Attending Unavailabl e Faina, Steffen Referring Unavailable Stanford, Steffen Primary Care Unavailable Edel Bullock Attending Unavailabl e Stanford, Steffen Primary Care Unavailable Kostase Edel Diehl Attending Unavailabl e Stanford, Steffen Primary Care Unavailable Edel Bullock Referring Unavailabl e Vande VeldeEdel Attending Unavailabl e Faina, Steffen Primary Care Unavailable Edel Bullock Referring Unavailabl e Kiley Jain Attending Unavailable Kiley Jain Referring Unavailable Stanford, Steffen Primary Care Unavailable Edel Bullock Consulting Unavailabl e Vande VeldeEdel Attending Unavailabl e Stanford, Steffen Primary Care Unavailable Edel Bullock Referring Unavailabl e Stanford, Steffen Referring Unavailable Kiley Jain Attending Unavailable Stanford, Steffen Primary Care Unavailable Stanford, Steffen Primary Care Unavailable Stanford, Steffen Referring Unavailable VandEdel Logan Attending Unavailabl [...] Primary Care Unavailable Faina, Steffen Referring Unavailable Stanford, Steffen Attending Unavailable Faina, Steffen Primary Care Unavailable Stanford, Steffen Primary Care Unavailable Faina, Steffen Referring Unavailable Edel Bullock Attending Unavailabl e Edel Bullock Attending Unavailabl e Faina, Steffen Referring Unavailable Stanford, Steffen Primary Care Unavailable Stanford, Steffen Referring Unavailable Apple Lao Attending Unavailable Stanford, Steffen Primary Care Unavailable Faina, Steffen Primary Care Unavailable Edel Bullock Attending Unavailabl e Stanford, Steffen Referring Unavailable Faina, Steffen Primary Care Unavailable Edel Bullock Attending Unavailabl e Care Physician, No Primary Primary Care Unava ilable Faina, Steffen Referring Unavailable Faina, Steffen Attending Unavailable Faina, Steffen Referring Unavailable Faina, Steffen Primary Care Unavailable Apple Lao Attending Unavailable Stanford, Steffen Referring Unavailable Faina, Steffen Primary Care Unavailable Edel Bullock Attending Unavailabl e Faina, Steffen Referring Unavailable Faina, Steffen Primary Care Unavailable Apple Lao Attending Unavailable Kiley Jain Attending Unavailable Kiley Jain Referring Unavailable Faina, Steffen Primary Care Unavailable Edel Bullock Consulting UnavailKiley Durán Consulting Unavailable Aida Shields Attending Unavailable Faina, Steffen Primary Care Unavailable Stanford, Steffen Primary Care Unavailable Edel Bullock Attending Unavailabl e Stanford, Steffen Referring Unavailable Faina, Steffen Primary Care [...] [AMOXICILLIN] Drug Allergy 1 Diarrhea, GI Intolerance [facility] (2 sources) ALLERGIES NOT ON FILE; Translations: [ALLERGIES NOT ON FILE] Propensity to adverse reactions (disorder) [facility] 2 Repository Medications Current Medications Medication Drug Class(es) Dates Sig (Normalized) Sig (Original) [id number] actuat albuterol 0.09 mg/actuat metered dose [...] on above: Take 1 capsule by mo [facility] three times a day as needed [...] CAPSU LE BY MOUTH EVERY DAY vit 36-bhqj-bcdyc-dha ( + DHA) 28 mg iron- 975 mcg-200 mg Cmpk (2 sources) Start: 09-02-2019 take 1 capsule by mouth once daily vit 36-dvor-vesyc-dha ( + DHA) 28 mg iron- 975 mcg-200 mg Cmpk Take 1 capsule by mouth daily . 0 09/02/2019 Active Vit-Fe Cyw-LU-Sofsr (PNV Plus Multivit+DHA) 27-1 & 312 MG Misc (4 sources) Start: 07-29-2024 Vit-Fe Lym-WH-Ipgtl (PNV Plus Multivit+DHA) 27-1 & 312 MG Misc 1 tab + 1 cap daily. Due for yearly follow up - must be seen to get additional refills 180 Each 07/29/2024 Active Start: 10-29-2023 End: 07-29-2024 take 1 tablet by mouth once daily Vit-Fe Mid-CO-Htskw (PNV Plus Multivit+DHA) 27-1 & 312 MG Misc TAKE 1 TAB & 1 CAPSULE BY MOUTH EVERY DAY 180 Each 1 10/29/2023 07/29/2024 Discontinued Start: 07-03-2022 End: 09-27-2022 take 1 tablet by mouth once daily Vit-Fe Xbi-XH-Emrmg (PNV Plus Multivit+DHA) 27-1 & 312 MG Misc TAKE 1 TAB & 1 CAPSULE BY MOUTH EVERY DAY 0 07/03/2022 09/27/2022 Discontinued (Reorder) Start: 07-03-2022 take 1 tablet by claude th once daily Vit-Fe Kuf-EP-Ywptq (PNV Plus Multivit+DHA) 27-1 & 312 MG [...] mg/ml oral solution (2 sources) Phenothiazine, Uncompetitive C-jxfwaj-V-asparta te Receptor Antagonist, Sigma-1 Agonist Start: 08-10-2022 [...] Test Name Value Interpretation Reference Range Facility Rug Touch Up Painter Office Visit Reporton 05-06-2025 Rug Touch Up Painter Office Visit Report [facility] [address], [address] [place] [address] OFFICE VISIT Date of Service: 05/06/25 MR#: [id number] Acct: [id number] Name: BARBY CABALLERO Rep #: [id number] : 1990 Provider: Dr. Edel Dover DO Age/Sex: 34/F [place] 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 Normal [facility] Rule out Beta Strep (Grp. B) on 05-03-2025 RANJAN Rule out Beta Strep (Grp. B) Rule out Beta Strep (Grp. B) Streptococcus agalactiae (B) Amount Growth Growth Streptococcus agalactiae (B): REACTION Ampicillin Islt GUERA <=0.25 cefTRIAXone Islt GUERA <=0.12 S Clindamycin Islt GUERA <=0.25 S Clindamycin.induced Susc Islt NEG Linezolid Islt GUERA <=2 S Vancomycin Islt GUERA 0.5 S Normal [facility] Comment on above: Performed By: #### L 300.8000 #### [facility] [address] [place], [place], [address] Laboratory - Chemistry and C hemistry - challengeOrdered By: Edel Diehl on 04-28-2025 Glucose Ql (U) Negative [facility] Laboratory - UrinalysisOrder ed By: Edel Diehl on 04-28-2025 Protein Ql (U) Negative [facility] Rug Touch Up Painter Office Visit Reporton 04-28-2025 Rug Touch Up Painter Office Visit Report [facility], [address] [place] [address] OFFICE VISIT Date of Service: 04/28/25 MR#: [id number] Acct: [id number] Name: BARBY CABALLERO Rep #: [id number] : 1990 Provider: Dr. Edel Dover DO Age/Sex: 34/F [place] 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 (works from home) History 2 Elective abortions Hx Para 1 Spontaneous abortions Hx # Term Pregnancies 1 Ectopic pregnancies Hx # Pregnancies Multiple births # of living children 1 Past Pregnancies Del. Date Name GA/Weeks Outcome Route Bth Weight Infant Gen Labor Lgth Anesthesia Del Locatn Provider FOB 07/18/21 Larry 40 live - full term 7lbs 7oz Male gene ral [facility] [place] Delivery Date: 07/18/21 Last Updated [...] Visit Note (more content not included)... Normal [facility] Screening beta-hemolytic Str eptococcus cultureOrdered By: Edel Diehl on 04-28-2025 Beta-hemolytic Streptococcus culture Streptococcus agalactiae (B) Abnormal [facility] OB Biophysical Prof W/O NSTo n 04-22-2025 OB Biophysical Prof W/O NST [facility] [address] [place] [address] OB Biophysical Prof W/O NST MR#: [id number] Acct: [id number] Name: BARBY CABALLERO Rep #: [id number] : 1990 F 34 From: Francisco Javier cuevas MD PCP: Dr. Steffen Eisenberg MD Status: REG CLI Study: OB Biophysical Prof W/O NST Date of Exam: 03/31 01/22 Exam# [id number] Ordering Dr: Edel Bullock DO PROCEDURE: OB [...] NST IMPRESSION: Normal biophysical profile. Reading Location: [facility] CC: Dr. Steffen Eisenberg MD; Dr. Edel Bullock DO Senior Net Application Developer: Signed Normal [facility] Laboratory - Chemistry and C hemistry - challengeOrdered By: Apple Tashia on 04-20-2025 Glucose Ql (U) Negative [facility] Laboratory - UrinalysisOrder ed By: Apple Lao on 04-20-2025 Protein Ql (U) Negative [facility] Rug Touch Up Painter Office Visit Reporton 04-20-2025 Rug Touch Up Painter Office Visit Report [facility] [address], [address] [place] [address] OFFICE VISIT Date of Service: 04/20/25 MR#: [id number] Acct: [id number] Name: BARBY CABALLERO Rep #: [id number] : 1990 Provider: Dr. Apple martínez MD Age/Sex: 34/F [place] 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 Date Name GA/Weeks Outcome Route Bth Weight Gen Labor Lgth Anesthesia Del Locatn Provider FOB 07/18/21 Larry 40 live - full term 7lbs 7oz Male gene ral [facility] [place] Delivery Date: 07/18/21 Last Updated [...] -???-???- 8 (more content not included)... Normal [facility] OB Biophysical Prof W/O NSTo n 04-19-2025 OB Biophysical Prof W/O NST [facility] [address] [place] [address] OB Biophysical Prof W/O NST MR#: [id number] Acct: [id number] Name: BARBY CABALLERO Rep #: [id number] : 1990 F 34 From: Rowdy Pedraza DO PCP: Dr. Steffen Eisenberg MD Status: DEP CLAren Study: OB Biophysical Prof W/O NST Date of Exam: 03/31 10/24 Exam# [id number] Ordering Dr: Edel Bullock DO PROCEDURE: OB [...] taken to labor and delivery. Reading Location: [facility]EDS AT [facility] CC: Dr. Steffen Eisenberg MD; Dr. Edel Bullock DO Senior Net Application Developer: Signed Normal [facility] OB Triage Progress Noteon OB Triage Progress Note [facility] Medical Records Department [address] [place] [address] OB Triage Progress Note 04/19/25 1542 MR#: [id number] Acct: [id number] Name: BARBY CABALLERO Rep #: [id number] : 1990 34 From: Kiley Jain CNM PCP: Dr. Steffen Eisenberg MD Status:DEP MAGI Y DOS: Location: WPOUT Progress Notes Date of Service: 04/19/25 Progress Note: Patient presents for triage evaluation secondary to BPP 6/8 at 35 weeks. FHT: 145 Moderate variability reactive no decelerations category I tracing [place]: no Contractions Assessment and plan: BPP 6/8 with Reactive NST for total score of 8/10, reassuring maternal and status patient discharged to home to follow-up at next appt. See problem list details for additional plan information. Charges/Coding Multi Select Codes Urinary/Genital Urinary/Genital CPT Codes: 21977-61 non-stress test Interp Assessment Plan (1) Conceived [...] Jain; Dr. Steffen Eisenberg MD Signed Normal [facility] OB Biophysical Prof W/O NSTo n 04-15-2025 OB Biophysical Prof W/O NST [facility] [address] [place] [address] OB Biophysical Prof W/O NST MR#: [id number] Acct: [id number] Name: BARBY CABALLERO Rep #: [id number] : 1990 F 34 From: Francisco Javier cuevas MD PCP: Dr. Steffen Eisenberg MD Status: REG CLI Study: OB Biophysical Prof W/O NST Date of Exam: 03/30 04/23 Exam# [id number] Ordering Dr: Edel Bullock DO PROCEDURE: OB [...] NST IMPRESSION: Normal biophysical profile. Reading Location: [place] [address] CC: Dr. Steffen Eisenberg MD; Dr. Edel Bullock DO Senior Net Application Developer: Signed Normal [facility] L3410.9992on 04-08-2025 [facility] [place] COMMENT Normal . [facility] Comment on above: Order Comment: [id number] serum FZ bile acids Result Comment: Perf ormed at: - [facility] [address] [id number] Social Insurance Specialist: Huan Kuhn PhD, Phone: [phone] Performed By: #### L 500.4050, L3410.9992 #### [facility] [address] [place], [place], [id number] Anion gap in Serum or Plasma Ordered By: Edel Diehl on 04-07-2025 Anion gap [Moles/Vol] 12 mmol/L 5-15 [facility] BUN/creatinine ratioOrdered By: Edel Diehl on 04-07-2025 Urea nitrogen/Creatinine [Mass ratio] 7.7 mg/mg Low 10-20 [facility] Bilirubin, totalOrdered By: Edel Diehl on 04-07-2025 Bilirubin [Mass/Vol] 0.29 mg/dL 0.00-1.30 [facility] Carbon dioxide, total [Moles /volume] in Central venous bloodOrdered By: Edel Diehl on 04-07-2025 CO2 [Moles/Vol] 19.0 mmol/L Low 21.0-32.0 [facility] Chloride assayOrdered By: Mickey Diehl on 04-07-2025 Chloride [Moles/Vol] 107 mmol/L 98-108 [facility] Comprehensive Metabolic Prof ilon 04-07-2025 Albumin [Mass/Vol] 3.6 g/dL Normal 3.5-5.0 [facility] Comment on above: Performed By: #### L 500.4050, L3410.9992 #### [facility] [address] [place], [place], [id number] Albumin/Globulin [Mass ratio] 1.1 {ratio} Normal 0.9-2.4 [facility] Comment on above: Performed By: #### L 500.4050, L3410.9992 #### [facility] [address] [place], [address] ALK PHOS 146 U/L High 35-104 [facility] Comment on above: Performed By: #### L 500.4050, L3410.9992 #### [facility] [address] [place], [address] ALT [Catalytic activity/Vol] 21 U/L Normal <=34 [facility] Comment on above: Performed By: #### L 500.4050, L3410.9992 #### [facility] [address] [place], [address] AST [Catalytic activity/Vol] 19 U/L Normal <=31 [facility] Comment on above: Performed By: #### L 500.4050, L3410.9992 #### [facility] [address] [place], [address] Bilirubin [Mass/Vol] 0.29 mg/dL Normal 0.00-1.30 [facility] Comment on above: Performed By: #### L 500.4050, L3410.9992 #### [facility] [address] [place], [address] BUN/CRE 7.7 RATIO Low 10-20 [facility] Comment on above: Performed By: #### L 500.4050, L3410.9992 #### [facility] [address] [place], [address] Calcium [Mass/Vol] 9.2 mg/dL Normal 7.6-11.0 [facility] Comment on above: Performed By: #### L 500.4050, L3410.9992 #### [facility] [address] [place], [address] Chloride [Moles/Vol] 107 mmol/L Normal 98-108 [facility] Comment on above: Performed By: #### L 500.4050, L3410.9992 #### [facility] [address] [place], [address] CO2 [Moles/Vol] 19.0 mmol/L Low 21.0-32.0 [facility] Comment on above: Performed By: #### L 500.4050, L3410.9992 #### [facility] [address] [place], [address] Creatinine [Mass/Vol] 0.58 mg/dL Low 0.70-1.20 [facility] Comment on above: Performed By: #### L 500.4050, L3410.9992 #### [facility] [address] [place], [address] GAP 12 Normal 5-15 [facility] Comment on above: Performed By: #### L 500.4050, L3410.9992 #### [facility] [address] [place], [address] GFR/1.73 sq M.predicted among non-blacks MDRD (S/P/Bld) [Vol rate/Area] 121 mL/min/{1.73_m2} Normal >60 [facility] Comment on above: Result Comment: mL/m in/1.73m2 CKD-EPI Creatinine Equation (2020) Performed By: #### L 500.4050, L3410.9992 #### [facility] [address] [place], [address] Globulin (S) [Mass/Vol] 3.4 g/dL Normal 2.2-4.2 [facility] Comment on above: Performed By: #### L 500.4050, L3410.9992 #### [facility] [address] [place], [address] Glucose [Mass/Vol] 85 mg/dL Normal 70-99 [facility] Comment on above: Performed By: #### L 500.4050, L3410.9992 #### [facility] [address] [place], [address] Potassium [Moles/Vol] 4.0 mmol/L Normal 3.3-5.1 [facility] Comment on above: Performed By: #### L 500.4050, L3410.9992 #### [facility] [address] [place], [address] Sodium [Moles/Vol] 137 mmol/L Normal 133-145 [facility] Comment on above: Performed By: #### L 500.4050, L3410.9992 #### [facility] [address] [place], [address] T PROT 6.9 g/dL Normal 5.9-8.4 [facility] Comment on above: Performed By: #### L 500.4050, L3410.9992 #### [facility] [address] [place], [address] Urea nitrogen [Mass/Vol] 4 mg/dL Normal 4-19 [facility] Comment on above: Performed By: #### L 500.4050, L3410.9992 #### [facility] [address] [place], [address] Glomerular filtration rate ( GFR) estimation/1.73 sq m using serum, plasma, or whole bOrdered By: Edel Diehl on 04-07-2025 GFR/1.73 sq M.predicted among non-blacks MDRD (S/P/Bld) [Vol rate/Area] 121 mL/min/{1.73_m2} >60 [facility] Comment on above: mL/min/1.73m2 CKD-EP I Creatinine Equation (2020) Laboratory - Chemistry and C hemistry - challengeOrdered By: Edel Diehl on 04-07-2025 AST [Catalytic activity/Vol] 19 U/L <32 [facility] Rug Touch Up Painter Office Visit Reporton 04-07-2025 Rug Touch Up Painter Office Visit Report [facility] [address], [address] [place] [address] OFFICE VISIT Date of Service: 04/07/25 MR#: [id number] Acct: [id number] Name: BARBY CABALLERO Rep #: [id number] : 1990 Provider: Dr. Edel Dover DO Age/Sex: 34/F [place] 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 -? (more content not included)... Normal [facility] Potassium measurement (mass/ volume)Ordered By: Edel Diehl on 04-07-2025 Potassium (Unsp spec) [Mass/Vol] 4.0 mmol/L 3.3-5.1 [facility] Serum creatinine measurement (mass/volume)Ordered By: Edel Diehl on 04-07-2025 Creatinine [Mass/Vol] 0.58 mg/dL Low 0.70-1.20 [facility] Serum globulin measurementOr dered By: Edel Diehl on 04-07-2025 Globulin (S) [Mass/Vol] 3.4 g/dL 2.2-4.2 [facility] Serum glucose measurement (m ass/volume)Ordered By: Edel Diehl on 04-07-2025 Glucose [Mass/Vol] 85 mg/dL 70-99 [facility] Serum or plasma alanine jung otransferase (ALT) measurementOrdered By: Edel Diehl on 04-07-2025 ALT [Catalytic activity/Vol] 21 U/L <35 [facility] Serum or plasma albumin kenisha urement (mass/volume)Ordered By: dEel Diehl on 04-07-2025 Albumin [Mass/Vol] 3.6 g/dL 3.5-5.0 [facility] Serum or plasma albumin/glob ulin mass ratioOrdered By: Edel Diehl on 04-07-2025 Albumin/Globulin [Mass ratio] 1.1 {ratio} 0.9-2.4 [facility] Serum or plasma alkaline ct sphatase measurementOrdered By: Edel Diehl on 04-07-2025 ALP [Catalytic activity/Vol] 146 U/L High 35-104 [facility] Serum or plasma calcium kenisha urement (mass/volume)Ordered By: Edel Diehl on 04-07-2025 Calcium [Mass/Vol] 9.2 mg/dL 7.6-11.0 [facility] Serum or plasma urea nitroge n measurement (mass/volume)Ordered By: Edel Diehl on 04-07-2025 Urea nitrogen [Mass/Vol] 4 mg/dL 4-19 [facility] Sodium levelOrdered By: Kellen Diehl on 04-07-2025 Sodium [Moles/Vol] 137 mmol/L 133-145 [facility] Total proteinOrdered By: Rachel Diehl on 04-07-2025 Protein [Mass/Vol] 6.9 g/dL 5.9-8.4 [facility] Laboratory - Chemistry and C hemistry - challengeOrdered By: Edel Diehl on 03-26-2025 Glucose Ql (U) Negative [facility] Laboratory - UrinalysisOrder ed By: Edel Diehl on 03-26-2025 Protein Ql (U) Negative [facility] [employer] Painter Office Visit Reporton 03-26-2025 [employer] Painter Office Visit Report [facility] [address] [place] [address], [address] [place] [address] OFFICE VISIT Date of Service: 03/26/25 MR#: [id number] Acct: [id number] Name: BARBY CABALLERO Rep #: [id number] : 1990 Provider: Dr. Edel Dover, Age/Sex: 34/F [place] 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 - (more content not included)... Normal [facility] Genital Culture Comprehensiv tracy 03-12-2025 VAC Reason for Exam: contractions No Gardnerella, Neisseria or beta-hemolytic Streptococcus isolated. Presumptive C albicans Amount Growth 2+ Normal [facility] Comment on above: Performed By: #### M , M1.3200 #### [facility] [address] [place], [address] Gram Stainon 03-10-2025 Reason for Exam: contractions Gram Stain 3+ Gram positive rods 1+ White Blood Cells No Gram negative diplococci Score = 1 Interpretation: 0-3 Normal, 4-6 Intermediate, 7-10 Positive BV Normal [facility] Comment on above: Performed By: #### M 100, M100.3200 #### [facility] [address] [place], [address] Gram stainOrdered By: Ronda Diehl on 03-10-2025 Microscopic observation Gram stain Nom (Unsp spec) [facility] Laboratory - Chemistry and C hemistry - challengeOrdered By: Edel Diehl on 03-10-2025 Glucose Ql (U) Negative [facility] Laboratory - UrinalysisOrder ed By: Edel Diehl on 03-10-2025 Protein Ql (U) Negative [facility] [employer] Painter Office Visit Reporton 03-10-2025 Rug Touch Up Painter Office Visit Report [facility] [address], [address] [place] [address] OFFICE VISIT Date of Service: 03/10/25 MR#: [id number] Acct: [id number] Name: BARBY CABALLERO Rep #: [id number] : 1990 Provider: Dr. Edel Dover DO Age/Sex: 34/F [place] 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 Date Name GA/Weeks Outcome Route Bth Weight Gen Labor Lgth Anesthesia Del Locatn Provider FOB 07/18/21 Larry 40 live - full term 7lbs 7oz Male gene ral [facility] [place] Delivery Date: 07/18/21 Last Updated [...] lb (+0 (more content not included)... Normal [facility] Gestational GTT 3HR 100gon 0 6- GEST GTT 100gm Normal [facility] Comment on above: Order Comment: Y Result [...] 1029 Performed By: #### L 500.4710 #### [facility] [address] [place] [place], [address] Quantitative serum or plasma 3 hour gestational glucose tolerance panelOrdered By: Kiley Jain on 03-05-2025 Glucose tolerance 3 hours gestational panel See comment [facility] Comment on above: FASTING 85 Col: 03/24 [...] Auto (Unsp spec) [#/Vol] 2.26 10*3/uL 0.83-4.51 [facility] Absolute neutrophil countOrd ered By: Edel Diehl on 02-26-2025 Neutrophils (Bld) [#/Vol] 8.8 10*3/uL High 2.0-7.7 [facility] Automated lymphocyte count a s percentage of total leukocytesOrdered By: Edel Diehl on 02-26-2025 Lymphocytes/100 WBC Auto (Unsp spec) 19.1 % 19-41 [facility] Basophil percentageOrdered B y: Edel Diehl on 02-26-2025 Basophils/100 WBC (Bld) 0.3 % 0-1 [facility] CBC W/Diff, Automatedon 01-30 Absolute Lymph 2.26 X10 3/uL Normal 0.83-4.51 [facility] Comment on above: Performed By: #### M 100.2000, M100.3200 #### [facility] [address] [place], [address] Absolute Neut 8.8 X10 3/uL High 2.0-7.7 [facility] Comment on above: Performed By: #### M , 00.3200 #### [facility] [address] [place], [address] Basophils/100 WBC (Bld) 0.3 % Normal 0-1 [facility] Comment on above: Performed By: #### M , .3200 #### [facility] [address] [place], [address] Eosinophils/100 WBC (Bld) 1.0 % Normal 0-5 [facility] Comment on above: Performed By: #### M , .0 #### [facility] [address] [place], [address] Erythrocyte distribution width (RBC) [Ratio] 13.5 % Normal 11.6-14.6 [facility] Comment on above: Performed By: #### M , .3200 #### [facility] [address] [place], [address] Hematocrit (Bld) [Volume fraction] 37.5 % Normal 37-47 [facility] Comment on above: Performed By: #### M , .3200 #### [facility] [address] [place], [address] Hemoglobin (Bld) [Mass/Vol] 12.7 g/dL Normal 12.0-15.0 [facility] Comment on above: Performed By: #### M , .3200 #### [facility] [address] [place], [address] IG% 0.800 Normal 0.0-0.9 [facility] Comment on above: Result Comment: IG% - Immature Granulocytes (promyelocytes, myelocytes and metamyelocytes) > 1% indicates that a LEFT SHIFT is Present. Performed By: #### M , M100.3200 #### [facility] [address] [place], [address] Lymphocytes/100 WBC (Bld) 19.1 % Normal 19-41 [facility] Comment on above: Performed By: #### M , 00.3200 #### [facility] [address] [place], [address] MCH (RBC) [Entitic mass] 29.7 pg Normal 27.0-32.0 [facility] Comment on above: Performed By: #### M , .3200 #### [facility] [address] [place], [address] MCHC (RBC) [Mass/Vol] 33.9 g/dL Normal 32-36 [facility] Comment on above: Performed By: #### M , 00.3200 #### [facility] [address] [place], [address] MCV (RBC) [Entitic vol] 87.6 fL Normal 81-99 [facility] Comment on above: Performed By: #### M , M100.3200 #### [facility] [address] [place], [address] Monocytes/100 WBC (Bld) 4.0 % Normal 0-10 [facility] Comment on above: Performed By: #### M , M100.3200 #### [facility] [address] [place], [address] Neutrophils/100 WBC (Bld) 74.8 % High 47-70 [facility] Comment on above: Performed By: #### M , 00.3200 #### [facility] [address] [place], [address] Nucleated RBC (Bld) [#/Vol] 0 10*3/uL Normal 0-5 [facility] Comment on above: Performed By: #### M , .0 #### [facility] [address] [place], [address] Platelet mean volume (Bld) [Entitic vol] 9.5 fL Normal 6.2-12.0 [facility] Comment on above: Performed By: #### M , .0 #### [facility] [address] [place], [address] Platelets (Bld) [#/Vol] 300 10*3/uL Normal 150-450 [facility] Comment on above: Performed By: #### M , .0 #### [facility] [address] [place], [address] RBC (Bld) [#/Vol] 4.28 10*6/uL Normal 4.2-5.4 [facility] Comment on above: Performed By: #### M , .0 #### [facility] [address] [place], [address] RDW SD 42.8 fl Normal 35.1-43.9 [facility] Comment on above: Performed By: #### M , .3200 #### [facility] [address] [place], [address] WBC (Bld) [#/Vol] 11.8 10*3/uL High 4.4-11.0 [facility] Comment on above: Performed By: #### M , .3200 #### [facility] [address] [place], [address] Eosinophil percentageOrdered By: Edel Diehl on 02-26-2025 Eosinophils/100 WBC (Bld) 1.0 % 0-5 [facility] Erythrocyte distribution wid th ratioOrdered By: Edel Diehl on 02-26-2025 Erythrocyte distribution width (RBC) [Ratio] 13.5 % 11.6-14.6 [facility] Erythrocyte distribution wid th standard deviationOrdered By: Edel Diehl on 02-26-2025 Erythrocyte distribution width (RBC) [Ratio] 42.8 fl 35.1-43.9 [facility] Glucose Challenge Gest 1H 50 trini 02-26-2025 GLU GEST 50g 1H 172 mg/dL High 70-140 [facility] Comment on above: Performed By: #### M 100, M100.3200 #### [facility] [address] [place], [place], [address] Glucose measurement at 2 haven rs post-dose gestational glucose tolerance testOrdered By: Edel Diehl on 02-26-2025 Glucose [Mass/Vol] 172 mg/dL High 70-140 [facility] HIVon 02-26-2025 HIV Non-Reactive Normal Nonreactive [facility] Comment on above: Result Comment: Non- Reactive Reactive Repeatedly reactive samples must be confirmed according to CDC recommended confirmatory algorithms. The subresults for either HIVAG or AHIV can be used as an aid in the selection of the confirmation algorithm for reactive samples. Send out specimens with Reactive results to [facility] for confirmation. Order the HIV antibody detection and differentiation: #[id number] Performed By: #### M 100, M100.3200 #### [facility] [address] [place], [place], [address] Hematocrit Auto (Bld) [Volum e fraction]Ordered By: Edel Diehl on 02-26-2025 Hematocrit (Bld) [Volume fraction] 37.5 % 37-47 [facility] Hemoglobin measurementOrdere d By: Edel Diehl on 02-26-2025 Hemoglobin (Bld) [Mass/Vol] 12.7 g/dL 12.0-15.0 [facility] Immature granulocytes/100 WB C Auto (Bld)Ordered By: Edel Diehl on 02-26-2025 Immature granulocytes/100 WBC (Bld) 0.800 % 0.0-0.9 [facility] Comment on above: IG% - Immature Granu locytes (promyelocytes, myelocytes and metamyelocytes) > 1% indicates that a LEFT SHIFT is Present. Laboratory - Chemistry and C hemistry - challengeOrdered By: Apple Lao on 02-26-2025 Glucose Ql (U) Negative [facility] - UrinalysisOrder ed By: Apple Lao on 02-26-2025 Protein Ql (U) Negative [facility] MCV (mean corpuscular volume ) determinationOrdered By: Edel Diehl on 02-26-2025 MCV (RBC) [Entitic vol] 87.6 fL 81-99 [facility] Mean corpuscular hemoglobin (MCH) determinationOrdered By: Edel Diehl on 02-26-2025 MCH (RBC) [Entitic mass] 29.7 pg 27.0-32.0 [facility] Mean corpuscular hemoglobin concentration (MCHC) determinationOrdered By: Edel Diehl on 02-26-2025 MCHC (RBC) [Mass/Vol] 33.9 g/dL 32-36 [facility] Mean platelet volume determi nationOrdered By: Edel Diehl on 02-26-2025 Platelet mean volume (Bld) [Entitic vol] 9.5 fL 6.2-12.0 [facility] Monocyte percentageOrdered B y: Edel Diehl on 02-26-2025 Monocytes/100 WBC (Bld) 4.0 % 0-10 [facility] Neutrophil percentageOrdered By: Edel Diehl on 02-26-2025 Neutrophils/100 WBC (Bld) 74.8 % High 47-70 [facility] No Panel InformationOrdered By: Edel Diehl on 02-26-2025 HIV (1&2) Antibody Non-Reactive Nonreactive [facility] Comment on above: Non-ReactiveReactive Repeatedly reactive samples must be confirmed according to CDC recommended confirmatory algorithms. The subresults for either HIVAG or AHIV can be used as an aid in the selection of the confirmation algorithm for reactive samples.Send out specimens with Reactive results to [facility] for confirmation.Order the HIV antibody detection and differentiation: #[id number] Nucleated red blood cell per centageOrdered By: Edel Diehl on 02-26-2025 Nucleated RBC/100 WBC (Bld) [Ratio] 0 % 0-5 [facility] [employer] Painter Office Visit Reporton 02-26-2025 Rug Touch Up Painter Office Visit Report [facility] [address], [address] [place] [address] OFFICE VISIT Date of Service: 02/26/25 MR#: [id number] Acct: [id number] Name: BARBY CABALLERO Rep #: [id number] : 1990 Provider: Dr. Apple martínez MD Age/Sex: 34/F [place] 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 Date Name GA/Weeks Outcome Route Bth Weight Infant Gen Labor Lgth Anesthesia Del Locatn Provider FOB 07/18/21 Larry 40 live - full term 7lbs 7oz Male gene ral [facility] [place] Delivery Date: 07/18/21 Last Updated [...] 10/09/24 -???-???-???- (more content not included)... Normal [facility] Platelet countOrdered By: Mickey Diehl on 02-26-2025 Platelets (Bld) [#/Vol] 300 10*3/uL 150-450 [facility] RBC Auto (Bld) [#/Vol]Ordere d By: Edel Diehl on 02-26-2025 RBC (Bld) [#/Vol] 4.28 10*6/uL 4.2-5.4 [facility] Syphilis Antibodieson 2024 Syphilis Abs Non-Reactive Normal Nonreactive [facility] Comment on above: Performed By: #### M 100.1999, M100.3200 #### [facility] [address] [place], [address] Type AND Screenon 02-26-2025 ABO and Rh group Nom (Bld) Blood group B Rh(D) negative Normal [facility] Comment on above: Order Comment: PN Performed By: #### M 100.1999, M100.3200 #### [facility] [address] [place], [address] White blood cell (WBC) count Ordered By: Edel Diehl on 02-26-2025 WBC (Bld) [#/Vol] 11.8 10*3/uL High 4.4-11.0 [facility] Progress Noteon 02-23-2025 Sales Administrator Authentication Interface Message Text MEDICAL DECISION MAKING: [...] concerns arise Patient was seen in [facility] cardiology clinic today at the request [...] there are questions regarding these findings. Normal [facility] Rug [employer] Painter Office Visit Reporton 01-29-2025 Rug Touch Up Painter Office Visit Report [facility] [address], [address] [place] [address] OFFICE VISIT Date of Service: 01/29/25 MR#: [id number] Acct: [id number] Name: BARBY CABALLERO Rep #: [id number] : 1990 Provider: Dr. Edel Dover DO Age/Sex: 34/F [place] 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 Date Name GA/Weeks Outcome Route Bth Weight Infant Gen Labor Lgth Anesthesia Del Locatn Provider FOB 07/18/21 Larry 40 live - full term 7lbs 7oz Male gene ral [facility] [place] Delivery Date: 07/18/21 Last Updated [...] -???-???-???-???-??? -???-???-???-?? (more content not included)... Normal [facility] Laboratory - Chemistry and C hemistry - challengeOrdered By: Apple Lao on 01-01-2025 Glucose Ql (U) Negative [facility] Laboratory - UrinalysisOrder ed By: Apple Lao on 01-01-2025 Protein Ql (U) Negative [facility] Rug Touch Up Painter Office Visit Reporton 01-01-2025 Rug Touch Up Painter Office Visit Report [facility], [address] [place] [address] OFFICE VISIT Date of Service: 01/01/25 MR#: [id number] Acct: [id number] Name: BARBY CABALLERO Rep #: [id number] : 1990 Provider: Dr. 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 Date Name GA/Weeks Outcome Route Bth Weight Infant Gen Labor Lgth Anesthesia Del Locatn Provider FOB 07/18/21 Larry 40 live - full term 7lbs 7oz Male gene ral [facility] [place] Delivery Date: 07/18/21 Last Updated [...] -???-???-???-???-??? -?? (more content not included)... Normal [facility] Rug Touch [employer] Painter Office Visit Reporton 12-03-2024 Rug Touch Up Painter Office Visit Report [facility] [address], [address] [place] [address] OFFICE VISIT Date of Service: 12/03/24 MR#: [id number] Acct: [id number] Name: BARBY CABALLERO Rep #: [id number] : 1990 Provider: Dr. Edel Dover, Age/Sex: 34/F [place] 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 Normal [facility] 12 Lead EKGon 11-10-2024 12 Lead EKG [facility] [address] [place] [address] 12 Lead EKG 11/10/242034 MR#: [id number] Acct: [id number] Name: BARBY CABALLERO Rep #: [id number] : 1990 34 From: Ravi Fung MD [...] normal ECG Confirmed by Ravi Fung ([id number]), newspaper editor managing DAYNE HOGAN ([id number]) on 11/11/2024 11:26:16 AM Referred By: Confirmed By: Ravi Fung 11/11/24 1126 Date Ravi Fung MD CC: Dr. Steffen Eisenberg MD; Dr. Ld Fermin MD Signed Normal [facility] Absolute lymphocyte countOrd ered By: Ld Fermin on 11-10-2024 Lymphocytes Auto (Unsp spec) [#/Vol] 3.59 10*3/uL 0.83-4.51 [facility] Absolute neutrophil countOrd ered By: Ldondina Fermin on 11-10-2024 Neutrophils (Bld) [#/Vol] 9.3 10*3/uL High 2.0-7.7 [facility] Automated lymphocyte count a s percentage of total leukocytesOrdered By: Ld Fermin on 11-10-2024 Lymphocytes/100 WBC Auto (Unsp spec) 25.8 % 19-41 [facility] Basic Metabolic Profile (BMP )on 11-10-2024 BUN/CRE 8.8 RATIO Low 10-20 [facility] Comment on above: Performed By: #### L 100.0100, L500.2500 #### [facility] [address] [place], [address] CA,Total 9.9 mg/dL Normal 8.5-10.1 [facility] Comment on above: Performed By: #### L 100.0100, L500.2500 #### [facility] [address] [place], [address] Chloride [Moles/Vol] 108 mmol/L High 98-107 [facility] Comment on above: Performed By: #### L 100.0100, L500.2500 #### [facility] [address] [place], [address] CO2 [Moles/Vol] 24.0 mmol/L Normal 21.0-32.0 [facility] Comment on above: Performed By: #### L 100.0100, L500.2500 #### [facility] [address] [place], [address] Creatinine [Mass/Vol] 0.57 mg/dL Normal 0.55-1.02 [facility] Comment on above: Result Comment: The validity of the calculated GFR GFRAA in patients over 70 years has not been determined. Clinical correlation is essential. Performed By: #### L 100.0100, L500.2500 #### [facility] [address] [place], [address] ECRCL 167.72 ml/min Normal [facility] Comment on above: Performed By: #### L 100.0100, L500.2500 #### [facility] [address] [place], [address] EST GFR - AA 157 mL/min Normal >60 [facility] Comment on above: Result Comment: Afri can Cameroonian GFR Calc Performed By: #### L 100.0100, L500.2500 #### [facility] [address] [place], [address] GAP 8 Normal 5-15 [facility] Comment on above: Performed By: #### L 100.0100, L500.2500 #### [facility] [address] [place], [address] GFR/1.73 sq M.predicted among non-blacks MDRD (S/P/Bld) [Vol rate/Area] 129 mL/min/{1.73_m2} Normal >60 [facility] Comment on above: Result Comment: Non- GFR Calc Performed By: #### L 100.0100, L500.2500 #### [facility] [address] [place], [address] Glucose [Mass/Vol] 86 mg/dL Normal 74-106 [facility] Comment on above: Performed By: #### L 100.0100, L500.2500 #### [facility] [address] [place], [address] Potassium [Moles/Vol] 3.4 mmol/L Low 3.5-5.1 [facility] Comment on above: Performed By: #### L 100.0100, L500.2500 #### [facility] [address] [place], [address] Sodium [Moles/Vol] 140 mmol/L Normal 136-145 [facility] Comment on above: Performed By: #### L 100.0100, L500.2500 #### [facility] [address] [place], [address] Urea nitrogen [Mass/Vol] 5 mg/dL Low 7-18 [facility] Comment on above: Performed By: #### L 100.0100, L500.2500 #### [facility] [address] [place], [address] Basophil percentageOrdered B y: Ld Fermin on 11-10-2024 Basophils/100 WBC (Bld) 0.5 % 0-1 [facility] Blood urea nitrogen (BUN)/cr eatinine ratioOrdered By: Ld Fermin on 11-10-2024 Urea nitrogen/Creatinine [Mass ratio] 8.8 mg/mg Low 10-20 [facility] CBC W/Diff, Automatedon -09 30-2024 Absolute Lymph 3.59 X10 3/uL Normal 0.83-4.51 [facility] Comment on above: Performed By: #### L 100.0100, L500.2500 #### [facility] [address] [place], [address] Absolute Neut 9.3 X10 3/uL High 2.0-7.7 [facility] Comment on above: Performed By: #### L 100.0100, L500.2500 #### [facility] [address] [place], [address] Basophils/100 WBC (Bld) 0.5 % Normal 0-1 [facility] Comment on above: Performed By: #### L 100.0100, L500.2500 #### [facility] [address] [place], [address] Eosinophils/100 WBC (Bld) 1.2 % Normal 0-5 [facility] Comment on above: Performed By: #### L 100.0100, L500.2500 #### [facility] [address] [place], [address] Erythrocyte distribution width (RBC) [Ratio] 12.8 % Normal 11.6-14.6 [facility] Comment on above: Performed By: #### L 100.0100, L500.2500 #### [facility] [address] [place], [address] Hematocrit (Bld) [Volume fraction] 43.6 % Normal 37-47 [facility] Comment on above: Performed By: #### L 100.0100, L500.2500 #### [facility] [address] [place], [address] Hemoglobin (Bld) [Mass/Vol] 14.8 g/dL Normal 12.0-15.0 [facility] Comment on above: Performed By: #### L 100.0100, L500.2500 #### [facility] [address] [place], [address] IG% 0.600 Normal 0.0-0.9 [facility] Comment on above: Result Comment: IG% - Immature Granulocytes (promyelocytes, myelocytes and metamyelocytes) > 1% indicates that a LEFT SHIFT is Present. Performed By: #### L 100.0100, L500.2500 #### [facility] [address] [place], [address] Lymphocytes/100 WBC (Bld) 25.8 % Normal 19-41 [facility] Comment on above: Performed By: #### L 100.0100, L500.2500 #### [facility] [address] [place], [address] MCH (RBC) [Entitic mass] 28.8 pg Normal 27.0-32.0 [facility] Comment on above: Performed By: #### L 100.0100, L500.2500 #### [facility] [address] [place], [address] MCHC (RBC) [Mass/Vol] 33.9 g/dL Normal 32-36 [facility] Comment on above: Performed By: #### L 100.0100, L500.2500 #### [facility] [address] [place], [address] MCV (RBC) [Entitic vol] 84.8 fL Normal 81-99 [facility] Comment on above: Performed By: #### L 100.0100, L500.2500 #### [facility] [address] [place], [address] Monocytes/100 WBC (Bld) 5.1 % Normal 0-10 [facility] Comment on above: Performed By: #### L 100.0100, L500.2500 #### [facility] [address] [place], [address] Neutrophils/100 WBC (Bld) 66.8 % Normal 47-70 [facility] Comment on above: Performed By: #### L 100.0100, L500.2500 #### [facility] [address] [place], [address] Nucleated RBC (Bld) [#/Vol] 0 10*3/uL Normal 0-5 [facility] Comment on above: Performed By: #### L 100.0100, L500.2500 #### [facility] [address] [place], [address] Platelet mean volume (Bld) [Entitic vol] 9.3 fL Normal 6.2-12.0 [facility] Comment on above: Performed By: #### L 100.0100, L500.2500 #### [facility] [address] [place], [address] Platelets (Bld) [#/Vol] 373 10*3/uL Normal 150-450 [facility] Comment on above: Performed By: #### L 100.0100, L500.2500 #### [facility] [address] [place], [address] RBC (Bld) [#/Vol] 5.14 10*6/uL Normal 4.2-5.4 [facility] Comment on above: Performed By: #### L 100.0100, L500.2500 #### [facility] [address] [place], [address] RDW SD 39.5 fl Normal 35.1-43.9 [facility] Comment on above: Performed By: #### L 100.0100, L500.2500 #### [facility] [address] [place], [address] WBC (Bld) [#/Vol] 13.9 10*3/uL High 4.4-11.0 [facility] Comment on above: Performed By: #### L 100.0100, L500.2500 #### [facility] [address] [place] [place], [address] Carbon dioxide measurementOr dered By: Ld Fermin on 11-10-2024 CO2 [Moles/Vol] 24.0 mmol/L 21.0-32.0 [facility] Chloride measurementOrdered By: Ld Fermin on 11-10-2024 Chloride [Moles/Vol] 108 mmol/L High 98-107 [facility] D-Dimer Quantitative (DVT/PE )on 11-10-2024 D-DIMER QUANT < 0.27 Low 0.27-0.49 [facility] Comment on above: Result Comment: NORM AL D-Dimer level (<0.50) indicates no DVT or PE. Performed By: #### L 300.8000 #### [facility] [address] [place], [address] Emergency Department Summary on 11-10-2024 Emergency Department Summary [facility] Medical Records Department [address] [place] [address] Emergency Department Summary 11/10/24 MR#: [id number] Acct: [id number] Name: BARBY CABALLERO Rep #: [id number] : 1990 34 From: Ld Fermin MD [...] revealed a sinus tachycardia rate of 109. TN interval is 118 ms. Cures duration 72 ms. QT duration 304 ms. 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 Normal [facility] Eosinophil percentageOrdered By: Ldondina Fermin on 11-10-2024 Eosinophils/100 WBC (Bld) 1.2 % 0-5 [facility] Erythrocyte distribution wid th ratioOrdered By: Ldondina Fermin on 11-10-2024 Erythrocyte distribution width (RBC) [Ratio] 12.8 % 11.6-14.6 [facility] Erythrocyte distribution wid th standard deviationOrdered By: Ldondina Fermin on 11-10-2024 Erythrocyte distribution width (RBC) [Ratio] 39.5 fl 35.1-43.9 [facility] Glomerular filtration rate ( GFR) estimationOrdered By: Ldondina Fermin on 11-10-2024 GFR/1.73 sq M.predicted among non-blacks MDRD (S/P/Bld) [Vol rate/Area] 129 mL/min/{1.73_m2} >60 [facility] Comment on above: Non- GFR Calc Glucose measurementOrdered B y: Ld Fermin on 11-10-2024 Glucose [Mass/Vol] 86 mg/dL 74-106 [facility] Hematocrit Auto (Bld) [Volum e fraction]Ordered By: Ldondina Fermin on 11-10-2024 Hematocrit (Bld) [Volume fraction] 43.6 % 37-47 [facility] Hemoglobin measurementOrdere d By: Ld Fermin on 11-10-2024 Hemoglobin (Bld) [Mass/Vol] 14.8 g/dL 12.0-15.0 [facility] Immature granulocytes/100 WB C Auto (Bld)Ordered By: Ld Fermin on 11-10-2024 Immature granulocytes/100 WBC (Bld) 0.600 % 0.0-0.9 [facility] Comment on above: IG% - Immature Granu locytes (promyelocytes, myelocytes and metamyelocytes) > 1% indicates that a LEFT SHIFT is Present. MCV (mean corpuscular volume ) determinationOrdered By: Ld Fremin on 11-10-2024 MCV (RBC) [Entitic vol] 84.8 fL 81-99 [facility] Mean corpuscular hemoglobin (MCH) determinationOrdered By: Ldondina Fermin on 11-10-2024 MCH (RBC) [Entitic mass] 28.8 pg 27.0-32.0 [facility] Mean corpuscular hemoglobin concentration (MCHC) determinationOrdered By: Ldondina Fermin on 11-10-2024 MCHC (RBC) [Mass/Vol] 33.9 g/dL 32-36 [facility] Mean platelet volume determi nationOrdered By: Ld Fermin on 11-10-2024 Platelet mean volume (Bld) [Entitic vol] 9.3 fL 6.2-12.0 [facility] Monocyte percentageOrdered B y: Ldondina Fermin on 11-10-2024 Monocytes/100 WBC (Bld) 5.1 % 0-10 [facility] Neutrophil percentageOrdered By: Ldondina Fermin on 11-10-2024 Neutrophils/100 WBC (Bld) 66.8 % 47-70 [facility] Nucleated red blood cell per centageOrdered By: Ldondina Fermin on 11-10-2024 Nucleated RBC/100 WBC (Bld) [Ratio] 0 % 0-5 [facility] Platelet countOrdered By: [facility] Fermin on 11-10-2024 Platelets (Bld) [#/Vol] 373 10*3/uL 150-450 [facility] Potassium measurementOrdered By: Ldondina Fermin on 11-10-2024 Potassium [Moles/Vol] 3.4 mmol/L Low 3.5-5.1 [facility] RBC Auto (Bld) [#/Vol]Ordere d By: Ld Fermin on 11-10-2024 RBC (Bld) [#/Vol] 5.14 10*6/uL 4.2-5.4 [facility] Serum anion gap measurementO rdered By: Ld Fermin on 11-10-2024 Anion gap [Moles/Vol] 8 mmol/L 5-15 [facility] Serum or plasma calcium kenisha urement (mass/volume)Ordered By: Ldondina Fermin on 11-10-2024 Calcium [Mass/Vol] 9.9 mg/dL 8.5-10.1 [facility] Serum or plasma creatinine m easurement (mass/volume)Ordered By: Ld Fermin on 11-10-2024 Creatinine [Mass/Vol] 0.57 mg/dL 0.55-1.02 [facility] Comment on above: The validity of the calculated GFR & GFRAA in patients over 70 years has not been determined. Clinical correlation is essential. Serum or plasma urea nitroge n measurement (mass/volume)Ordered By: [facility] on 11-10-2024 Urea nitrogen [Mass/Vol] 5 mg/dL Low 7-18 [facility] Sodium levelOrdered By: Ldondina Fermin on 11-10-2024 Sodium [Moles/Vol] 140 mmol/L 136-145 [facility] White blood cell (WBC) count Ordered By: [facility] on 11-10-2024 WBC (Bld) [#/Vol] 13.9 10*3/uL High 4.4-11.0 [facility] - Chemistry and C hemistry - challengeOrdered By: Edel Diehl on 11-05-2024 Glucose Ql (U) Negative [facility] - UrinalysisOrder ed By: Edel Diehl on 11-05-2024 Protein Ql (U) Negative [facility] Rug Touch Up Painter Office Visit Reporton 11-05-2024 Rug Touch Up Painter Office Visit Report [facility] [address], [address] [place] [address] OFFICE VISIT Date of Service: 11/05/24 MR#: [id number] Acct: [id number] Name: BARBY CABALLERO Rep #: [id number] : 1990 Provider: Dr. Edel Dover, Age/Sex: 34/F [place] 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 (works from home) History 2 Elective abortions Hx Para 1 Spontaneous abortions Hx # Term Pregnancies 1 Ectopic pregnancies Hx # Pregnancies Multiple births # of living children 1 Past Pregnancies Del. Date Name GA/Weeks Outcome Route Bth Weight Gen Labor Lgth Anesthesia Del Locatn Provider FOB 07/18/21 Larry 40 live - full term 7lbs 7oz Male gene ral [facility] [place] Delivery Date: 07/18/21 Last Updated [...] KW-CRL cons (more content not included)... Normal [facility] HIV - WCHon 10-13-2024 HIV Non-Reactive Normal Nonreactive [facility] Comment on above: Order Comment: Reaso n for Exam: Performed By: #### L 500.4050, L3410.9992 #### [facility] [address] [place], [place], [address] L3410.9999on [facility] . [facility] Comment on above: Order Comment: [id number] 4TSH RECEPTOR AB SERUM RF Result Comment: Test Ordered: [id number] Thyrotropin Receptor Ab, Serum Thyrotropin Receptor Ab, Serum <1.10 IU/L Reference Range: 0.00-1.75 Performed at: [address] [id number] Social Insurance Specialist: Sue Martinez MD, Phone: [phone] Performed at: [address] [id number] Social Insurance Specialist: Huan Kuhn PhD, Phone: [phone] Performed By: #### L 500.4050, L3410.9992 #### [facility] [address] [place], [address] Chlamydia/GC CONCHITA aptimaon CHLAMY,NUC ACID Negative Normal Negative [facility] Comment on above: Performed By: #### M 100.1999, M100.3200 #### [facility] [address] [place], [address] GC BY NUC ACID Negative Normal Negative [facility] Comment on above: Result Comment: Perf ormed at: =G - [facility] [address] [id number] Social Insurance Specialist: Ary Grider MD, Phone: [phone] Performed By: #### M 100.1999, M100.3200 #### [facility] [place], [address] Hepatitis B Surface Antigeno n 10-12-2024 HEP B Surf Ag Non-Reactive Normal Nonreactive [facility] Comment on above: Order Comment: Reaso n for Exam: Performed By: #### L 300.8000 #### [facility] [address] [place], [address] Hepatitis C Antibodyon 10-12 Hepatitis C AB Non-Reactive Normal Nonreactive [facility] Comment on above: Order Comment: Reaso n for Exam: Result Comment: Non Reactive: < 0.8 Equivocal: >/= 0.8 to < 1.0 Reactive: >/= 1.0 The CDC requires that a reactive/equivocal HCV antibody result be sent out for confirmation. HCV Quant by PCR testing. Performed By: #### L 300.8000 #### [facility] [address] [place], [address] L509.8000on 10-12-2024 Syphilis Abs Non-Reactive Normal [facility] Comment on above: Order Comment: Reaso n for Exam: Performed By: #### L 300.8000 #### [facility] [address] [place], [address] Rubella IgGon 10-12-2024 Rubella IgG Reactive Normal Nonreactive [facility] Comment on above: Order Comment: Reaso n for Exam: Result Comment: Anti body Results Interpretation of Immune Status Non Reactive Presumed Non-Immune Equivocal Equivocal Reactive Presumed Immune Performed By: #### L 300.8000 #### [facility] [address] [place], [address] Urine Cultureon 10-12-2024 [facility] Mixed Gram Positive Organisms Edna Count 25,000-50,000 MIXC Mixed contaminants. Submit a new specimen if indicated. Normal [facility] Comment on above: Performed By: #### M 100.2000, M100.3200 #### [facility] [address] [place], [address] CBC W/Diff, Automatedon - 0-2024 Absolute Lymph 2.85 X10 3/uL Normal 0.83-4.51 [facility] Comment on above: Performed By: #### L 300.8000 #### [facility] [address] [place], [address] Absolute Neut 10.8 X10 3/uL High 2.0-7.7 [facility] Comment on above: Performed By: #### L 300.8000 #### [facility] [address] [place], [address] Basophils/100 WBC (Bld) 0.5 % Normal 0-1 [facility] Comment on above: Performed By: #### L 300.8000 #### [facility] [address] [place], [address] Eosinophils/100 WBC (Bld) 1.4 % Normal 0-5 [facility] Comment on above: Performed By: #### L 300.8000 #### [facility] [address] [place], [address] Erythrocyte distribution width (RBC) [Ratio] 12.8 % Normal 11.6-14.6 [facility] Comment on above: Performed By: #### L 300.8000 #### [facility] [address] [place], [address] Hematocrit (Bld) [Volume fraction] 41.2 % Normal 37-47 [facility] Comment on above: Performed By: #### L 300.8000 #### [facility] [address] [place], [address] Hemoglobin (Bld) [Mass/Vol] 14.1 g/dL Normal 12.0-15.0 [facility] Comment on above: Performed By: #### L 300.8000 #### [facility] [address] [place], [address] IG% 0.500 Normal 0.0-0.9 [facility] Comment on above: Result Comment: IG% - Immature Granulocytes (promyelocytes, myelocytes and metamyelocytes) > 1% indicates that a LEFT SHIFT is Present. Performed By: #### L 300.8000 #### [facility] [address] [facility] [place], [address] Lymphocytes/100 WBC (Bld) 19.2 % Normal 19-41 [facility] Comment on above: Performed By: #### L 300.8000 #### [facility] [address] [place], [address] MCH (RBC) [Entitic mass] 28.8 pg Normal 27.0-32.0 [facility] Comment on above: Performed By: #### L 300.8000 #### [facility] [address] [place], [address] MCHC (RBC) [Mass/Vol] 34.2 g/dL Normal 32-36 [facility] Comment on above: Performed By: #### L 300.8000 #### [facility] [address] [place], [address] MCV (RBC) [Entitic vol] 84.1 fL Normal 81-99 [facility] Comment on above: Performed By: #### L 300.8000 #### [facility] [address] [place], [address] Monocytes/100 WBC (Bld) 5.2 % Normal 0-10 [facility] Comment on above: Performed By: #### L 300.8000 #### [facility] [address] [place], [address] Neutrophils/100 WBC (Bld) 73.2 % High 47-70 [facility] Comment on above: Performed By: #### L 300.8000 #### [facility] [place], [address] Nucleated RBC (Bld) [#/Vol] 0 10*3/uL Normal 0-5 [facility] Comment on above: Performed By: #### L 300.8000 #### [facility] [place], [address] Platelet mean volume (Bld) [Entitic vol] 9.1 fL Normal 6.2-12.0 [facility] Comment on above: Performed By: #### L 300.8000 #### [facility] [place], [address] Platelets (Bld) [#/Vol] 417 10*3/uL Normal 150-450 [facility] Comment on above: Performed By: #### L 300.8000 #### [facility] [place], [address] RBC (Bld) [#/Vol] 4.90 10*6/uL Normal 4.2-5.4 [facility] Comment on above: Performed By: #### L 300.8000 #### [facility] [address] [place], [place], [address] RDW SD 39.1 fl Normal 35.1-43.9 [facility] Comment on above: Performed By: #### L 300.8000 #### [facility] [address] [place], [id number] (721) WBC (Bld) [#/Vol] 14.8 10*3/uL High 4.4-11.0 [facility] Comment on above: Performed By: #### L 300.8000 #### [facility] [address] [place], [address] Hemoglobin A1con 10-09-2024 HbA1c (Bld) [Mass fraction] 5.2 % Normal 3.8-5.6 [facility] Comment on above: Result Comment: Norm al < 5.7 % Prediabetic 5.7 - 6.4 % Diabetic >or= 6.5 % Please note range changes. Performed By: #### L 300.8000 #### [facility] [address] [place], [place], [address] Rug Touch Up Painter Office Visit Reporton 10-09-2024 Rug Touch Up Painter Office Visit Report [facility] [address], [address] [place] [address] OFFICE VISIT Date of Service: 10/09/24 MR#: [id number] Acct: [id number] Name: BARBY CABALLERO Rep #: [id number] : 1990 Provider: NU Red ams Age/Sex: 33/F [place] 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 (works from home) History 2 Elective abortions Hx Para 1 Spontaneous abortions Hx # Term Pregnancies 1 Ectopic pregnancies Hx # Pregnancies Multiple births # of living children 1 Past Pregnancies Del. Date Name GA/Weeks Outcome Route Bth Weight Infant Gen Labor Lgth Anesthesia Del Locatn Provider FOB 07/18/21 Larry 40 live - full term 7lbs 7oz Male gene ral [facility] [place] Delivery Date: 07/18/21 Last Updated [...] 264 lb (more content not included)... Normal [facility] T4 Free Directon 10-09-2024 T4 FREE DIRECT 1.29 ng/dL Normal 0.76-1.46 [facility] Comment on above: Performed By: #### L 300.8000 #### [facility] [address] [place], [address] Thyroid Stim Hormone (TSH)on 10-09-2024 TSH 1.180 uIU/mL Normal 0.358-3.740 [facility] Comment on above: Performed By: #### L 300.8000 #### [facility] [address] [place], [address] Type AND Screenon 10-09-2024 Ab SCREEN GEL Negative Normal [facility] Comment on above: Order Comment: PN Performed By: #### L 300.8000 #### [facility] [address] [place], [address] Urine Drug Screen (VISTA)on 10-09-2024 AMPHETAMINES Negative Normal <1000 ng/mL [facility] Comment on above: Order Comment: UNK Performed By: #### M , M100.3200 #### [facility] [address] [place], [address] BARBITIURATES Negative Normal < 200 ng/mL [facility] Comment on above: Order Comment: UNK Performed By: #### M , M100.3200 #### [facility] [address] [place], [address] BENZODIAZIPINE Negative Normal < 200 ng/mL [facility] Comment on above: Order Comment: UNK Performed By: #### M 100, M100.3200 #### [facility] [address] [place], [address] COCAINE Negative Normal < 300 ng/mL [facility] Comment on above: Order Comment: UNK Performed By: #### M , M100.3200 #### [facility] [address] [place], [address] ECSTACY Negative Normal < 500 ng/mL [facility] Comment on above: Order Comment: UNK Performed By: #### M , M100.3200 #### [facility] [address] [place], [address] METHADONE Negative Normal < 300 ng/mL [facility] Comment on above: Order Comment: UNK Performed By: #### M , M100.3200 #### [facility] [address] [place], [address] OPIATES Negative Normal < 300 ng/mL [facility] Comment on above: Order Comment: UNK Performed By: #### M , M100.3200 #### [facility] [address] [place], [address] PCP Negative Normal < 25 ng/mL [facility] Comment on above: Order Comment: UNK Performed By: #### M , M100.3200 #### [facility] [address] [place], [address] THC Negative Normal < 50 ng/mL [facility] Comment on above: Order Comment: UNK Performed By: #### M , M100.3200 #### [facility] [address] [place], [address] VISTA UDS PH 6 Normal [facility] Comment on above: Order Comment: UNK Performed By: #### M , M100.3200 #### [facility] [address] [place], [address] Choriogonadotropin.beta subu niton 10-02-2024 [place] [address] m[IU]/mL High <5 U [facility] Comment on above: Order Comment: Total HCG measurement is performed using the [employer] Access Immunoassay which detects intact HCG and free beta HCG subunit. This test is not indicated for use as a tumor marker. HCG testing is performed using a different test methodology at [facility] than other [facility]. Direct result comparison should only [...] By: #### 3 4549-6 #### DWAYNE Nair ([id number]) [facility] ([facility]) [id number] [place] [address] Estradiolon 10-02-2024 E2 [Mass/Vol] 506 pg/mL Normal [facility] Comment on above: Order Comment: REF V ALUESFOLLICULAR PHASE 20-144MID CYCLE 64-357LUTEAL PHASE 56-214POSTMENOPAUSE < 32PREPUBERTY < 20FEMALE 10-18Y 8-110MALE 10-18Y < 20ADULT MALE < 40 Performed By: #### 3 4549-6 #### DWAYNE Nair ([id number]) [facility] ([facility]) [address] [place] [address] Progesteroneon 10-02-2024 Progesterone [Mass/Vol] 26.5 ng/mL Normal [facility] Comment on above: Result Comment: Ref Values Male <0.3- 1.2 Follicular Phase <0.3- 1.4 Luteal Phase 3.3-25.6 Mid-Luteal Phase 4.4-28.0 Postmenopausal <0.3- 0.7 Females: 1st Trimester 11.2- 90.0 2nd Trimester 25.6- 89.4 3RD Trimester 48.4-422.5 Patients receiving DHEA-S supplements may show false elevation of progesterone for results near 1.0 ng/mL. Contact laboratory at [phone] if alternative testing is needed. Performed By: #### 3 4549-6 #### DWAYNE Nair ([id number]) [facility] ([facility]) [address] [place] [address] US PELVIS OB TRANSABDOMINAL W TRANSVAGINAL UP TO 1ST TRIMESTERon 10-02-2024 US PELVIS OB TRANSABDOMINAL W TRANSVAGINAL UP TO 1ST TRIMESTER Interpreted By: Dyllan De Jesus, STUDY: US PELVIS OB TRANSABDOMINAL W TRANSVAGINAL UP TO 1ST TRIMESTER; 10/02/2024 9:55 am INDICATION: Signs/Symptoms:PREGN RADHA. COMPARISON: None. ACCESSION NUMBER(S): [id number] ORDERING CLINICIAN: LEVON BRAXTON TECHNIQUE: Multiple grayscale [...] De Jesus 10/02/2024 11:52 AM Dictation workstation: [id number] [facility] US Pelvis transvaginalon 1. Single live intrauterine . 2. Estimated gestational age: 6 weeks 2 days +/-3 days. MACRO: None Signed by: Dyllan De Jesus 10/02/2024 11:52 AM Dictation workstation: [id number] Interpreted By: Dyllan De Jesus, STUDY: US PELVIS OB TRANSABDOMINAL W TRANSVAGINAL UP TO 1ST TRIMESTER; 10/02/2024 9:55 am INDICATION: Signs/Symptoms:PREGN RADHA. COMPARISON: None. ACCESSION NUMBER(S): [id number] ORDERING CLINICIAN: LEVON BRAXTON TECHNIQUE: Multiple grayscale [...] INDICATION: Signs/Symptoms:PREGN RADHA. COMPARISON: None. ACCESSION NUMBER(S): [id number] ORDERING CLINICIAN: LEVON BRAXTON TECHNIQUE: Multiple grayscale [...] De Jesus 10/02/2024 11:52 AM Dictation workstation: [id number] [facility] Work Phone: Radiology Study observation (narrative) [facility] Work Phone: US Pelvis transvaginalOrdere d By: Dyllan De Jesus on 10-02-2024 [facility] Work Phone: Choriogonadotropin.beta subu niton 09-25-2024 [place] [address] m[IU]/mL High <5 U [facility] Comment on above: Order Comment: Needs to go with a stat fisher lampara net Total HCG measurement is performed using the [employer] Access Immunoassay which detects intact HCG and free beta HCG subunit. This test is not indicated for use as a tumor marker. HCG testing is performed using a different test methodology at [facility] than other [facility]. Direct result comparison should only [...] By: #### 3 4549-6 #### DWAYNE Nair ([id number]) [facility] ([facility]) [address] [place] [address] Estradiolon 09-25-2024 E2 [Mass/Vol] 423 pg/mL Normal [facility] Comment on above: Order Comment: Needs to go with a stat courierREF VALUESFOLLICULAR PHASE 20-144MID CYCLE 64-357LUTEAL PHASE 56-214POSTMENOPAUSE < 32PREPUBERTY < 20FEMALE 10-18Y 8-110MALE 10-18Y < 20ADULT MALE < 40 Performed By: #### 3 4549-6 #### DWAYNE Nair ([id number]) [facility] ([facility]) [address] [place] [address] Progesteroneon 09-25-2024 Progesterone [Mass/Vol] 37.3 ng/mL Normal U [facility] Comment on above: Order Comment: Needs to go with a stat fisher lampara net Result Comment: Ref Values Male <0.3- 1.2 Follicular Phase <0.3- 1.4 Luteal Phase 3.3-25.6 Mid-Luteal Phase 4.4-28.0 Postmenopausal <0.3- 0.7 Females: 1st Trimester 11.2- 90.0 2nd Trimester 25.6- 89.4 3RD Trimester 48.4-422.5 Patients receiving DHEA-S supplements may show false elevation of progesterone for results near 1.0 ng/mL. Contact laboratory at [phone] if alternative testing is needed. Performed By: #### 3 4549-6 #### DWAYNE Nair ([id number]) [facility] ([facility]) [address] [place] [address] US PELVIS OB TRANSABDOMINAL W TRANSVAGINAL UP TO 1ST TRIMESTERon 09-25-2024 US PELVIS OB TRANSABDOMINAL W TRANSVAGINAL UP TO 1ST TRIMESTER Interpreted By: Dyllan De Jesus, STUDY: US PELVIS OB TRANSABDOMINAL W TRANSVAGINAL UP TO 1ST TRIMESTER; 09/25/2024 9:44 am INDICATION: Signs/Symptoms:POSIT MANUEL TEST. COMPARISON: None. ACCESSION NUMBER(S): [id number] ORDERING CLINICIAN: LEVON BRAXTON TECHNIQUE: Multiple grayscale [...] De Jesus 09/25/2024 10:40 AM Dictation workstation: [id number] [facility] US Pelvis transvaginalon 1. Single intrauterine . [...] De Jesus 09/25/2024 10:40 AM Dictation workstation: [id number] MMODAL Interpreted By: Dyllan De Jesus, STUDY: US PELVIS OB TRANSABDOMINAL W TRANSVAGINAL UP TO 1ST TRIMESTER; 09/25/2024 9:44 am INDICATION: Signs/Symptoms:POSIT MANUEL TEST. COMPARISON: None. ACCESSION NUMBER(S): [id number] ORDERING CLINICIAN: LEVON BRAXTON TECHNIQUE: Multiple grayscale [...] Signs/Symptoms:POSIT MANUEL TEST. COMPARISON: None. ACCESSION NUMBER(S): [id number] ORDERING CLINICIAN: LEVON BRAXTON TECHNIQUE: Multiple grayscale [...] De Jesus 09/25/2024 10:40 AM Dictation workstation: [id number] [facility] Work Phone: Radiology Study observation (narrative) [facility] Work Phone: US Pelvis transvaginalOrdere d By: Dyllan De Jesus on 09-25-2024 [facility] Work Phone: Choriogonadotropin.beta subu niton 09-15-2024 HCG.beta subunit Qn 889 m[IU]/mL High <5 [facility] Comment on above: Order Comment: Stat, send with fisher lampara net Total HCG measurement is performed using the [employer] Access Immunoassay which detects intact HCG and free beta HCG subunit. This test is not indicated for use as a tumor marker. HCG testing is performed using a different test methodology at [facility] than other [facility]. Direct result comparison should only [...] By: #### 3 4549-6 #### DWAYNE Nair ([id number]) [facility] ([facility]) [address] [place] [address] Estradiolon 09-15-2024 E2 [Mass/Vol] 492 pg/mL Normal [facility] Comment on above: Order Comment: Stat, send with courierREF VALUESFOLLICULAR PHASE 20-144MID CYCLE 64-357LUTEAL PHASE 56-214POSTMENOPAUSE < 32PREPUBERTY < 20FEMALE 10-18Y 8-110MALE 10-18Y < 20ADULT MALE < 40 Performed By: #### 3 4549-6 #### DWAYNE Nair ([id number]) [facility] ([facility]) [address] [place] [address] Progesteroneon 09-15-2024 Progesterone [Mass/Vol] 31.2 ng/mL Normal [facility] Comment on above: Order Comment: Stat, send with fisher lampara net Result Comment: Ref Values Male <0.3- 1.2 Follicular Phase <0.3- 1.4 Luteal Phase 3.3-25.6 Mid-Luteal Phase 4.4-28.0 Postmenopausal <0.3- 0.7 Females: 1st Trimester 11.2- 90.0 2nd Trimester 25.6- 89.4 3RD Trimester 48.4-422.5 Patients receiving DHEA-S supplements may show false elevation of progesterone for results near 1.0 ng/mL. Contact laboratory at [phone] if alternative testing is needed. Performed By: #### 3 4549-6 #### DWAYNE Nair ([id number]) [facility] ([facility]) [address] [place] [address] Choriogonadotropin.beta subu niton 09-11-2024 HCG.beta subunit Qn 195 m[IU]/mL High <5 [facility] Comment on [...] By: #### 2 243-4 #### DWAYNE Nair ([id number]) [facility] ([facility]) [address] [place] [address] Estradiolon 09-11-2024 E2 [Mass/Vol] 347 pg/mL Normal [facility] Comment on above: Order Comment: REF V ALUES FOLLICULAR PHASE 20-144 MID CYCLE 64-357 LUTEAL PHASE 56-214 POSTMENOPAUSE < 32 PREPUBERTY < 20 FEMALE 10-18Y 8-110 MALE 10-18Y < 20 ADULT MALE < 40 Performed By: #### 2 243-4 #### DWAYNE Nair ([id number]) [facility] ([facility]) [address] [place] [address] Progesteroneon 09-11-2024 Progesterone [Mass/Vol] 43.6 ng/mL Normal [facility] Comment on above: Order Comment: Send with stat fisher lampara net Result Comment: Ref Values Male <0.3- 1.2 Follicular Phase <0.3- 1.4 Luteal Phase 3.3-25.6 Mid-Luteal Phase 4.4-28.0 Postmenopausal <0.3- 0.7 Females: 1st Trimester 11.2- 90.0 2nd Trimester 25.6- 89.4 3RD Trimester 48.4-422.5 Patients receiving DHEA-S supplements may show false elevation of progesterone for results near 1.0 ng/mL. Contact laboratory at [phone] if alternative testing is needed. Performed By: #### 3 4549-6 #### DWAYNE Nair ([id number]) [facility] ([facility]) [address] [place] [address] Thyrotropinon 09-11-2024 TSH Qn 2.28 m[IU]/L Normal 0.44-3.98 [facility] Comment on above: Order Comment: REF V ALUES FOLLICULAR PHASE 20-144 MID CYCLE 64-357 LUTEAL PHASE 56-214 POSTMENOPAUSE < 32 PREPUBERTY < 20 FEMALE 10-18Y 8-110 MALE 10-18Y < 20 ADULT MALE < 40 Performed By: #### 2 243-4 #### DWAYNE Nair ([id number]) [facility] ([facility]) [address] [place] [address]181 Choriogonadotropin.beta subu niton 09-09-2024 HCG.beta subunit Qn 101 m[IU]/mL High <5 [facility] Comment on [...] By: #### 2 243-4 #### DWAYNE Nair ([id number]) [facility] ([facility]) [address] [place] [address] Progesteroneon 09-09-2024 Progesterone [Mass/Vol] 31.9 ng/mL Normal [facility] Comment on above: Order Comment: REF V [...] results near 1.0 ng/mL. Contact laboratory at [phone] if alternative testing is needed. Performed By: #### 2 243-4 #### DWAYNE Nair ([id number]) [facility] ([facility]) [address] [place] [address] Estradiolon 09-04-2024 E2 [Mass/Vol] 222 pg/mL Normal [facility] Comment on above: Order Comment: REF V ALUES FOLLICULAR PHASE 20-144 MID CYCLE 64-357 LUTEAL PHASE 56-214 POSTMENOPAUSE < 32 PREPUBERTY < 20 FEMALE 10-18Y 8-110 MALE 10-18Y < 20 ADULT MALE < 40 Performed By: #### 2 243-4 #### DWAYNE Nair ([id number]) [facility] ([facility]) [address] [place] [address] Progesteroneon 09-04-2024 Progesterone [Mass/Vol] 33.6 ng/mL Normal [facility] Comment on above: Result Comment: Ref Values Male <0.3- 1.2 Follicular Phase <0.3- 1.4 Luteal Phase 3.3-25.6 Mid-Luteal Phase 4.4-28.0 Postmenopausal <0.3- 0.7 Females: 1st Trimester 11.2- 90.0 2nd Trimester 25.6- 89.4 3RD Trimester 48.4-422.5 Patients receiving DHEA-S supplements may show false elevation of progesterone for results near 1.0 ng/mL. Contact laboratory at [phone] if alternative testing is needed. Performed By: #### 2 243-4 #### DWAYNE Nair ([id number]) [facility] ([facility]) [address] [place] [address] Progesteroneon 08-25-2024 Progesterone [Mass/Vol] 0.5 ng/mL Normal [facility] Comment on above: Order Comment: REF V [...] results near 1.0 ng/mL. Contact laboratory at [phone] if alternative testing is needed. Performed By: #### 2 243-4 #### DWAYNE Nair ([id number]) [facility] ([facility]) [address] [place] [address] Estradiolon 08-21-2024 E2 [Mass/Vol] 427 pg/mL Normal [facility] Comment on above: Order Comment: REF V ALUES FOLLICULAR PHASE 20-144 MID CYCLE 64-357 LUTEAL PHASE 56-214 POSTMENOPAUSE < 32 PREPUBERTY < 20 FEMALE 10-18Y 8-110 MALE 10-18Y < 20 ADULT MALE < 40 Performed By: #### 2 243-4 #### DWAYNE Nair ([id number]) [facility] ([facility]) [address] [place] [address]34 Lutropinon 08-21-2024 Lutropin Qn 11.4 IU/L Normal [facility] Comment on above: Result Comment: LH R eference Values Follicular Phase 1.9-12.5 IU/L Mid-Cycle 8.7-76.3 IU/L Luteal Phase 0.5-16.9 IU/L Post Menopause 5.0-55.2 IU/L Children 0- 6.0 IU/L Adult Male 18-70 years 1.5- 9.3 IU/L Adult Male >70 years 3.1-34.6 IU/L Performed By: #### 2 1198-7 #### VILLATORO ENRIQUETA ([id number]) [facility] ([facility]) [address] [place] [address] Progesteroneon 08-21-2024 Progesterone [Mass/Vol] 0.6 ng/mL Normal U [facility] Comment on above: Result Comment: Ref Values Male <0.3- 1.2 Follicular Phase <0.3- 1.4 Luteal Phase 3.3-25.6 Mid-Luteal Phase 4.4-28.0 Postmenopausal <0.3- 0.7 Females: 1st Trimester 11.2- 90.0 2nd Trimester 25.6- 89.4 3RD Trimester 48.4-422.5 Patients receiving DHEA-S supplements may show false elevation of progesterone for results near 1.0 ng/mL. Contact laboratory at [phone] if alternative testing is needed. Performed By: #### 2 243-4 #### DWAYNE Nair ([id number]) [facility] ([facility]) [address] [place] [address] US PELVIS TRANSABDOMINAL WIT H TRANSVAGINALon 08-21-2024 US PELVIS TRANSABDOMINAL WITH TRANSVAGINAL Interpreted By: Jeremy Brower, STUDY: US PELVIS TRANSABDOMINAL WITH TRANSVAGINAL; 08/21/2024 8:38 am INDICATION: Signs/Symptoms:ROMULO PABLO ,Z31.83 Encounter for assisted reproductive fertility procedure cycle COMPARISON: 08/14/2024 ACCESSION NUMBER(S): [id number] ORDERING CLINICIAN: LEVON BRAXTON TECHNIQUE: Multiple multiplanar [...] Jeremy Brower 08/22/2024 10:52 AM Dictation workstation: [id number] [facility] Choriogonadotropin.beta subu niton 08-14-2024 HCG.beta subunit Qn m[IU]/mL Normal <5 [facility] Comment on above: Order Comment: Total HCG measurement is performed using the [employer] Access Immunoassay which detects intact HCG and free beta HCG subunit. This test is not indicated for use as a tumor marker. HCG testing is performed using a different test methodology at [facility] than other [facility]. Direct result comparison should only be made within the same method. Performed By: #### 2 1198-7 #### VILLATORO ENRIQUETA ([id number]) [facility] ([facility]) [address] [place] [address] Estradiolon 08-14-2024 E2 [Mass/Vol] 42 pg/mL [facility] Comment on above: Order Comment: Total HCG measurement is performed using the [employer] [place] Access Immunoassay which detects intact HCG and free beta HCG subunit. This test is not indicated for use as a tumor marker. HCG testing is performed using a different test methodology at [facility] than [facility]. Direct result comparison should only be made within the same method. Performed By: #### 2 1198-7 #### SHAUNA ROBISON ([id number]) [facility] ([facility]) [address] [place], [place] [address] Follitropin and Lutropin rhoades el Qnon 08-14-2024 Follitropin Qn 6.4 IU/L [facility] Comment on above: Order Comment: Total HCG measurement is performed using the [employer] Access Immunoassay which detects intact HCG and free beta HCG subunit. This test is not indicated for use as a tumor marker. HCG testing is performed using a different test methodology at [facility] than other [facility]. Direct result comparison should only be made within the same method. Result Comment: FSH Ref Values Follicular 2.0-12.0 IU/L Mid-Cycle 12.0-25.0 IU/L Luteal Phase 2.0-12.0 IU/L Menopause 30.0-150.0 IU/L Pre-puberty 50% Adult IU/L Adult Male 2.0-10.0 IU/L Infants 0.0-1.0 IU/L Performed By: #### 2 1198-7 #### SHAUNA ROBISON ([id number]) [facility] ([facility]) [address] [place] [address] Lutropin Qn 5.0 IU/L [facility] Comment on above: Order Comment: Total HCG measurement is performed using the [employer] Access Immunoassay which detects intact HCG and free beta HCG subunit. This test is not indicated for use as a tumor marker. HCG testing is performed using a different test methodology at [facility] than other [facility]. Direct result comparison should only be made within the same method. Result Comment: LH R eference Values Follicular Phase 1.9-12.5 IU/L Mid-Cycle 8.7-76.3 IU/L Luteal Phase 0.5-16.9 IU/L Post Menopause 5.0-55.2 IU/L Children 0- 6.0 IU/L Adult Male 18-70 years 1.5- 9.3 IU/L Adult Male >70 years 3.1-34.6 IU/L Performed By: #### 2 1198-7 #### SHAUNA ROBISON ([id number]) [facility] ([facility]) [facility] [place] [address] Progesteroneon 08-14-2024 Progesterone [Mass/Vol] 0.5 ng/mL Normal U [facility] Comment on above: Order Comment: Total HCG measurement is performed using the [employer] Access Immunoassay which detects intact HCG and free beta HCG subunit. This test is not indicated for use as a tumor marker. HCG testing is performed using a different test methodology at [facility] than other [facility]. Direct result comparison should only be made within the same method. Result Comment: Ref Values Male <0.3- 1.2 Follicular Phase <0.3- 1.4 Luteal Phase 3.3-25.6 Mid-Luteal Phase 4.4-28.0 Postmenopausal <0.3- 0.7 Females: 1st Trimester 11.2- 90.0 2nd Trimester 25.6- 89.4 3RD Trimester 48.4-422.5 Patients receiving DHEA-S supplements may show false elevation of progesterone for results near 1.0 ng/mL. Contact laboratory at [phone] if alternative testing is needed. Performed By: #### 2 1198-7 #### SHAUNA ROBISON ([id number]) [facility] ([facility]) [address] [place] [address] Thyrotropinon 08-14-2024 TSH Qn 1.86 m[IU]/L Normal 0.44-3.98 [facility] Comment on above: Order Comment: Total HCG measurement is performed using the [employer] Access Immunoassay which detects intact HCG and free beta HCG subunit. This test is not indicated for use as a tumor marker. HCG testing is performed using a different test methodology at [facility] than other [facility]. Direct result comparison should only be made within the same method. Performed By: #### 2 1198-7 #### SHAUNA ROBISON ([id number]) [facility] ([facility]) [address] [place], [place] [address] US PELVIS TRANSABDOMINAL WIT H TRANSVAGINALon 08-14-2024 US PELVIS TRANSABDOMINAL WITH TRANSVAGINAL Interpreted By: Ravi Triplett, STUDY: US PELVIS TRANSABDOMINAL WITH TRANSVAGINAL; ; 08/14/2024 8:54 am INDICATION: Signs/Symptoms:ROMULO [place]. COMPARISON: 06/24/2024 ACCESSION NUMBER(S): [id number] ORDERING CLINICIAN: LEVON BRAXTON TECHNIQUE: Multiple transabdominal [...] Ravi Triplett 08/15/2024 2:03 PM Dictation workstation: [id number] [facility] Internal Medicine Office Vis malik 07-16-2024 Internal Medicine Office Visit [facility] [address] [place] [address] OFFICE VISIT Date of Service: 07/20/24 MR#: [id number] Acct: [id number] Name: JOSEPHARINBARBY EDWINA Rep #: [id number] : 1990 Provider: Dr. 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 She was seeing a provider in [place] and last saw them in April 2023. [...] patient follows with a fertility specialist in [place]. She just completed an egg retrieval last [...] range of (more content not included)... Normal [facility] Estradiolon 06-24-2024 E2 [Mass/Vol] 453 pg/mL Normal [facility] Comment on above: Order Comment: Total HCG measurement is performed using the [employer] [place] Access Immunoassay which detects intact HCG and free beta HCG subunit. This test is not indicated for use as a tumor marker. HCG testing is performed using a different test methodology at [facility] than other [facility]. Direct result comparison should only be made within the same method. Performed By: #### 2 1198-7 #### SHAUNA ROBISON ([id number]) [facility] ([facility]) [address] [place] [address] Lutropinon 06-24-2024 Lutropin Qn 3.1 IU/L Normal [facility] Comment on above: Result Comment: LH R eference Values Follicular Phase 1.9-12.5 IU/L Mid-Cycle 8.7-76.3 IU/L Luteal Phase 0.5-16.9 IU/L Post Menopause 5.0-55.2 IU/L Children 0- 6.0 IU/L Adult Male 18-70 years 1.5- 9.3 IU/L Adult Male >70 years 3.1-34.6 IU/L Performed By: #### 2 1198-7 #### SHAUNA ROBISON ([id number]) [facility] ([facility]) [address] [place] [address] Progesteroneon 06-24-2024 Progesterone [Mass/Vol] 0.6 ng/mL Normal [facility] Comment on above: Result Comment: Ref Values Male <0.3- 1.2 Follicular Phase <0.3- 1.4 Luteal Phase 3.3-25.6 Mid-Luteal Phase 4.4-28.0 Postmenopausal <0.3- 0.7 Females: 1st Trimester 11.2- 90.0 2nd Trimester 25.6- 89.4 3RD Trimester 48.4-422.5 Patients receiving DHEA-S supplements may show false elevation of progesterone for results near 1.0 ng/mL. Contact laboratory at [phone] if alternative testing is needed. Performed By: #### 2 1198-7 #### SHAUNA ROBISON ([id number]) [facility] ([facility]) [address] [place] [address] GERRY US PELVIS LIMITED FOLLIC LES-FOLLICLE STUDIES PERFORMEDon 06-24-2024 GERRY US PELVIS LIMITED FOLLICLES-FOLLICLE STUDIES PERFORMED Interpreted By: Xiang Bowden, STUDY: US PELVIS TRANSABDOMINAL WITH TRANSVAGINAL; 06/24/2024 9:01 am INDICATION: Signs/Symptoms:ROMULO [place]KE[place]. ,Z31.83 Encounter for assisted reproductive fertility procedure cycle COMPARISON: None. ACCESSION NUMBER(S): [id number] ORDERING CLINICIAN: LEVON BRAXTON TECHNIQUE: Multiple multiplanar [...] Xiang Bowden 06/25/2024 6:46 AM Dictation workstation: [id number] [facility] US PELVIS TRANSABDOMINAL WIT H TRANSVAGINALon 06-24-2024 US PELVIS TRANSABDOMINAL WITH TRANSVAGINAL Interpreted By: Xiang Bowden, STUDY: US PELVIS TRANSABDOMINAL WITH TRANSVAGINAL; 06/24/2024 9:01 am INDICATION: Signs/Symptoms:ROMULO [place]KE[place]. ,Z31.83 Encounter for assisted reproductive fertility procedure cycle COMPARISON: None. ACCESSION NUMBER(S): [id number] ORDERING CLINICIAN: LEVON BRAXTON TECHNIQUE: Multiple multiplanar [...] Xiang Bowden 06/25/2024 6:46 AM Dictation workstation: [id number] Normal [facility] Estradiolon 06-22-2024 E2 [Mass/Vol] 124 pg/mL Normal [facility] Comment on above: Order Comment: REF V ALUES FOLLICULAR PHASE 20-144 MID CYCLE 64-357 LUTEAL PHASE 56-214 POSTMENOPAUSE < 32 PREPUBERTY < 20 FEMALE 10-18Y 8-110 MALE 10-18Y < 20 ADULT MALE < 40 Performed By: #### 2 243-4 #### DWAYNE Nair ([id number]) [facility] ([facility]) [address] [place] [address] Lutropinon 06-22-2024 Lutropin Qn 1.9 IU/L [facility] Comment on above: Result Comment: LH R eference Values Follicular Phase 1.9-12.5 IU/L Mid-Cycle 8.7-76.3 IU/L Luteal Phase 0.5-16.9 IU/L Post Menopause 5.0-55.2 IU/L Children 0- 6.0 IU/L Adult Male 18-70 years 1.5- 9.3 IU/L Adult Male >70 years 3.1-34.6 IU/L Performed By: #### 1 0501-5 #### DWAYNE Nair ([id number]) [facility] ([facility]) [address] [place] [address] Progesteroneon 06-22-2024 Progesterone [Mass/Vol] 0.4 ng/mL Normal [facility] Comment on above: Result Comment: Ref Values Male <0.3- 1.2 Follicular Phase <0.3- 1.4 Luteal Phase 3.3-25.6 Mid-Luteal Phase 4.4-28.0 Postmenopausal <0.3- 0.7 Females: 1st Trimester 11.2- 90.0 2nd Trimester 25.6- 89.4 3RD Trimester 48.4-422.5 Patients receiving DHEA-S supplements may show false elevation of progesterone for results near 1.0 ng/mL. Contact laboratory at [phone] if alternative testing is needed. Performed By: #### 2 1198-7 #### VILLATORO ENRIQUETA ([id number]) [facility] ([facility]) [address] [id number] GERRY US PELVIS LIMITED FOLLIC LES-FOLLICLE STUDIES PERFORMEDon 06-22-2024 GERRY US PELVIS LIMITED FOLLICLES-FOLLICLE STUDIES PERFORMED Interpreted By: Xiang Bowden, STUDY: US PELVIS TRANSABDOMINAL WITH TRANSVAGINAL; 06/22/2024 9:02 am INDICATION: Signs/Symptoms:CLIFFKLEVER ZUNIGAMichaelJai ,Z31.83 Encounter for assisted reproductive fertility procedure cycle COMPARISON: None. ACCESSION NUMBER(S): [id number] ORDERING CLINICIAN: LEVON BRAXTON TECHNIQUE: Multiple multiplanar [...] Xiang Bowden 06/23/2024 5:37 AM Dictation workstation: [id number] [facility] US PELVIS TRANSABDOMINAL WIT H TRANSVAGINALon 06-22-2024 US PELVIS TRANSABDOMINAL WITH TRANSVAGINAL Interpreted By: Xiang Bowden, STUDY: US PELVIS TRANSABDOMINAL WITH TRANSVAGINAL; 06/22/2024 9:02 am INDICATION: Signs/Symptoms:ROMULO PABLO ,Z31.83 Encounter for assisted reproductive fertility procedure cycle COMPARISON: None. ACCESSION NUMBER(S): [id number] ORDERING CLINICIAN: LEVON BRAXTON TECHNIQUE: Multiple multiplanar [...] Xiang Bowden 06/23/2024 5:37 AM Dictation workstation: [id number] [facility] Estradiolon 06-19-2024 E2 [Mass/Vol] 49 pg/mL [facility] Comment on above: Order Comment: REF V ALUES FOLLICULAR PHASE 20-144 MID CYCLE 64-357 LUTEAL PHASE 56-214 POSTMENOPAUSE < 32 PREPUBERTY < 20 FEMALE 10-18Y 8-110 MALE 10-18Y < 20 ADULT MALE < 40 Performed By: #### 2 243-4 #### DWAYNE Nair ([id number]) [facility] ([facility]) [address] [place] [address] Lutropinon 06-19-2024 Lutropin Qn 7.0 IU/L Normal [facility] Comment on above: Result Comment: LH R eference Values Follicular Phase 1.9-12.5 IU/L Mid-Cycle 8.7-76.3 IU/L Luteal Phase 0.5-16.9 IU/L Post Menopause 5.0-55.2 IU/L Children 0- 6.0 IU/L Adult Male 18-70 years 1.5- 9.3 IU/L Adult Male >70 years 3.1-34.6 IU/L Performed By: #### 1 0501-5 #### DWAYNE Nair ([id number]) [facility] ([facility]) [address] [place] [address] Progesteroneon 06-19-2024 Progesterone [Mass/Vol] 0.5 ng/mL Normal [facility] Comment on above: Result Comment: Ref Values Male <0.3- 1.2 Follicular Phase <0.3- 1.4 Luteal Phase 3.3-25.6 Mid-Luteal Phase 4.4-28.0 Postmenopausal <0.3- 0.7 Females: 1st Trimester 11.2- 90.0 2nd Trimester 25.6- 89.4 3RD Trimester 48.4-422.5 Patients receiving DHEA-S supplements may show false elevation of progesterone for results near 1.0 ng/mL. Contact laboratory at [phone] if alternative testing is needed. Performed By: #### 2 839-9 #### DWAYNE Nair ([id number]) [facility] ([facility]) [address] [place] [address] GERRY US PELVIS LIMITED FOLLIC LES-FOLLICLE STUDIES PERFORMEDon 06-19-2024 GERRY US PELVIS LIMITED FOLLICLES-FOLLICLE STUDIES PERFORMED Interpreted By: Lawson Wynn, STUDY: US PELVIS TRANSABDOMINAL WITH TRANSVAGINAL; 06/19/2024 9:11 am INDICATION: Signs/Symptoms:ROMULO PABLO ,Z31.83 Encounter for assisted reproductive fertility procedure cycle COMPARISON: Prior exam from 06/15/2024.. ACCESSION NUMBER(S): [id number] ORDERING CLINICIAN: LEVON BRAXTON TECHNIQUE: Multiple multiplanar [...] Lawson Wynn 06/20/2024 4:53 PM Dictation workstation: [id number] [facility] US PELVIS TRANSABDOMINAL WIT H TRANSVAGINALon 06-19-2024 US PELVIS TRANSABDOMINAL WITH TRANSVAGINAL Interpreted By: Lawson Wynn, STUDY: US PELVIS TRANSABDOMINAL WITH TRANSVAGINAL; 06/19/2024 9:11 am INDICATION: Signs/Symptoms:ROMULO [place]KE[place]. ,Z31.83 Encounter for assisted reproductive fertility procedure cycle COMPARISON: Prior exam from 06/15/2024.. ACCESSION NUMBER(S): [id number] ORDERING CLINICIAN: LEVON BRAXTON TECHNIQUE: Multiple multiplanar [...] Lawson Wynn 06/20/2024 4:53 PM Dictation workstation: [id number] Normal [facility] Choriogonadotropin.beta subu niton 06-15-2024 HCG.beta subunit Qn m[IU]/mL Normal <5 [facility] Comment on above: Order Comment: Total HCG measurement is performed using the [employer] Nestor Access Immunoassay which detects intact HCG and free beta HCG subunit. This test is not indicated for use as a tumor marker. HCG testing is performed using a different test methodology at [facility] than other [facility]. Direct result comparison should only be made within the same method. Performed By: #### 2 1198-7 #### SHAUNA ROBISON ([id number]) [facility] ([facility]) [address] [place] [address] Estradiolon 06-15-2024 E2 [Mass/Vol] 47 pg/mL [facility] Comment on above: Order Comment: REF V ALUES FOLLICULAR PHASE 20-144 MID CYCLE 64-357 LUTEAL PHASE 56-214 POSTMENOPAUSE < 32 PREPUBERTY < 20 FEMALE 10-18Y 8-110 MALE 10-18Y < 20 ADULT MALE < 40 Performed By: #### 2 243-4 #### DWAYNE Nair ([id number]) [facility] ([facility]) [address] [place] [address] Follitropin and Lutropin rhoades el Qnon 06-15-2024 Follitropin Qn 5.0 IU/L [facility] Comment on above: Result Comment: FSH Ref Values Follicular 2.0-12.0 IU/L Mid-Cycle 12.0-25.0 IU/L Luteal Phase 2.0-12.0 IU/L Menopause 30.0-150.0 IU/L Pre-puberty 50% Adult IU/L Adult Male 2.0-10.0 IU/L Infants 0.0-1.0 IU/L Performed By: #### 3 4549-6 #### DWAYNE Nair ([id number]) [facility] ([facility]) [id number] [place] [address] Lutropin Qn 2.9 IU/L [facility] Comment on above: Result Comment: LH R eference Values Follicular Phase 1.9-12.5 IU/L Mid-Cycle 8.7-76.3 IU/L Luteal Phase 0.5-16.9 IU/L Post Menopause 5.0-55.2 IU/L Children 0- 6.0 IU/L Adult Male 18-70 years 1.5- 9.3 IU/L Adult Male >70 years 3.1-34.6 IU/L Performed By: #### 3 4549-6 #### WDAYNE Nair ([id number]) [facility] ([facility]) [address] [place] [address] Progesteroneon 06-15-2024 Progesterone [Mass/Vol] 0.5 ng/mL Normal [facility] Comment on above: Result Comment: Ref Values Male <0.3- 1.2 Follicular Phase <0.3- 1.4 Luteal Phase 3.3-25.6 Mid-Luteal Phase 4.4-28.0 Postmenopausal <0.3- 0.7 Females: 1st Trimester 11.2- 90.0 2nd Trimester 25.6- 89.4 3RD Trimester 48.4-422.5 Patients receiving DHEA-S supplements may show false elevation of progesterone for results near 1.0 ng/mL. Contact laboratory at [phone] if alternative testing is needed. Performed By: #### 2 839-9 #### DWAYNE Nair ([id number]) [facility] ([facility]) [id number] [place] [address] Thyrotropinon 06-15-2024 TSH Qn 2.68 m[IU]/L Normal 0.44-3.98 [facility] Comment on above: Order Comment: TSH t esting is performed using different testing methodology at [facility] than at other [facility]. Direct result comparisons should only be made within the same method. Performed By: #### 3 016-3 #### VILLATORO ENRIQUETA ([id number]) [facility] ([facility]) [address] [place] [address] US PELVIS TRANSABDOMINAL WIT H TRANSVAGINALon 06-15-2024 US PELVIS TRANSABDOMINAL WITH TRANSVAGINAL Interpreted By: Dyllan De Jesus, STUDY: US PELVIS TRANSABDOMINAL WITH TRANSVAGINAL; ; 06/15/2024 8:31 am INDICATION: Signs/Symptoms:Ferti lity. COMPARISON: None. ACCESSION NUMBER(S): [id number] ORDERING CLINICIAN: LEVON BRAXTON TECHNIQUE: Multiple multiplanar [...] De Jesus 06/15/2024 12:12 PM Dictation workstation: [id number] [facility] US Pelvis transvaginalon 1. Single follicle within the right ovary, as above. 2. Tiny hypoechoic focus in the endometrium, of uncertain etiology. MACRO: None Signed by: Dyllan De Jesus 06/15/2024 12:12 PM Dictation workstation: [id number] Interpreted By: Dyllan De Jesus, STUDY: US PELVIS TRANSABDOMINAL WITH TRANSVAGINAL; ; 06/15/2024 8:31 am INDICATION: Signs/Symptoms:Ferti lity. COMPARISON: None. ACCESSION NUMBER(S): [id number] ORDERING CLINICIAN: LEVON BRAXTON TECHNIQUE: Multiple multiplanar [...] INDICATION: Signs/Symptoms:Ferti lity. COMPARISON: None. ACCESSION NUMBER(S): [id number] ORDERING CLINICIAN: LEVON BRAXTON TECHNIQUE: Multiple multiplanar [...] of uncertain etiology. MACRO: None Signed by: Dyllna De Jesus 06/15/2024 12:12 PM Dictation workstation: [id number] [facility] Work Phone: Radiology Study observation (narrative) [facility] Work Phone: US Pelvis transvaginalOrdere d By: Dyllan De Jesus on 06-15-2024 [facility] Work Phone: Antimullerian Hormone, Serum on 06-02-2024 AMH, SERUM 3.66 ng/mL Normal . [facility] Comment on above: Result Comment: For assays employing antibodies, the possibility exists for interference by heterophile antibodies in the samples.1 1.Adele Messina Interferences in Immunoassays - still a threat. Clin. Chem. 2000; 46: 7982-4702. This test was developed and its performance characteristics determined by [employer]. It has not been cleared or approved by the Food and Drug Administration. Reference Range: Females 31 - 35y: 0.66 - 8.75 Median 3.00 AMH concentrations of >= 1.06 ng/mL is correlated with a better response to ovarian stimulation, produced more retrievable oocytes and higher odds of live according to Thanh et al. Fertility and Sterility. 2010: 94:4362-6030. The current AMH test method correlates with [...] Performed By: #### M 100.1999, M100.3200 #### [facility] [address] [place], [address] PROLACTIN 4465on 06-02-2024 PROLACTIN 7.8 ng/mL Normal 4.8-33.4 [facility] Comment on above: Performed By: #### M 100.2000, M100.3200 #### [facility] [address] [place], [address] V-Zoster IgG (Immunity)on V ZOSTER IgG 1347 index Normal Immune >165 [facility] Comment on above: Result Comment: Nega tive <135 Equivocal 135 - 165 Positive >165 A positive result generally indicates exposure to the pathogen or administration of specific immunoglobulins, but it is not indication of active infection or stage of disease. Performed at: [facility] [address] [place] [id number] Social Insurance Specialist: Kolton Workman MD, Phone: [phone] Performed at: [address] [id number] Social Insurance Specialist: Huan Kuhn PhD, Phone: [phone] Performed By: #### M , M1.3200 #### [facility] [address] [place], [place], [address] HCG BETA-SUBUNIT QUANT.on HCG B-SUBUNIT < 1 Normal . [facility] Comment on above: Order Comment: N Result Comment: Fema le (Non-) 0 - 5 (Postmenopausal) 0 - 8 Female () Weeks of Gestation 3 6 - 71 4 10 - 750 5 031 - 9661 6 844 - 37638 7 6135 -756942 8 31696 -452397 9 84084 -415447 10 27075 -979042 12 74118 -017926 14 60731 - 27539 15 62703 - 08743 16 3672 - 50392 17 7654 - 82046 18 1653 - 88724 Oswaldo ECLIA methodology Performed By: #### M , .0 #### [facility] [address] [place], [place], [id number] PROGESTERONE 4317on 05-28-20 24 PROGESTERONE 0.2 ng/mL Normal . [facility] Comment on above: Order Comment: N Result Comment: Foll icular phase 0.1 - 0.9 Luteal phase 1.8 - 23.9 Ovulation phase 0.1 - 12.0 First trimester 11.0 - 44.3 Second trimester 25.4 - 83.3 Third trimester 58.7 - 214.0 Postmenopausal 0.0 - 0.1 Performed at: [facility] [id number] Social Insurance Specialist: Huan Kuhn PhD, Phone: [phone] Performed By: #### Jennifer , .0 #### [facility] [address] [place], [place], [address] [id number] 05-27-2024 ABO and Rh group Nom (Bld) Blood group B Rh(D) negative Normal [facility] Comment on above: Performed By: #### M , M100.3200 #### [facility] [address] [place], [place], [id number] CBC W/Diff, Automatedon 05-01 Absolute Lymph 2.52 X10 3/uL Normal 0.83-4.51 [facility] Comment on above: Performed By: #### L 3100.5140, L509.3000, L3890.6100, L100.0100, L801.2600, L501.9520, L3100.5125, L506.1000, L3400.0000, L500.4050, B882-1, L509.8000, L3100.5400, L501.9985, L3890.6005, L509.4005, L3300.1750, L803.3000, L3890.6300, L3100.5170 ####[facility] [address] [place], [place], [id number] Absolute Neut 6.0 X10 3/uL Normal 2.0-7.7 [facility] Comment on above: Performed By: #### L 3100.5140, L509.3000, L3890.6100, L100.0100, L801.2600, L501.9520, L3100.5125, L506.1000, L3400.0000, L500.4050, B882-1, L509.8000, L3100.5400, L501.9985, L3890.6005, L509.4005, L3300.1750, L803.3000, L3890.6300, L3100.5170 ####[facility] [address] [place], [place], [address] Basophils/100 WBC (Bld) 0.7 % Normal 0-1 [facility] Comment on above: Performed By: #### L 3100.5140, L509.3000, L3890.6100, L100.0100, L801.2600, L501.9520, L3100.5125, L506.1000, L3400.0000, L500.4050, B882-1, L509.8000, L3100.5400, L501.9985, L3890.6005, L509.4005, L3300.1750, L803.3000, L3890.6300, L3100.5170 ####[facility] [address] [place], [address](130) Eosinophils/100 WBC (Bld) 2.2 % Normal 0-5 [facility] Comment on above: Performed By: #### L 3100.5140, L509.3000, L3890.6100, L100.0100, L801.2600, L501.9520, L3100.5125, L506.1000, L3400.0000, L500.4050, B882-1, L509.8000, L3100.5400, L501.9985, L3890.6005, L509.4005, L3300.1750, L803.3000, L3890.6300, L3100.5170 ####[facility] [address] [place], [address] Erythrocyte distribution width (RBC) [Ratio] 12.6 % Normal 11.6-14.6 [facility] Comment on above: Performed By: #### L 3100.5140, L509.3000, L3890.6100, L100.0100, L801.2600, L501.9520, L3100.5125, L506.1000, L3400.0000, L500.4050, B882-1, L509.8000, L3100.5400, L501.9985, L3890.6005, L509.4005, L3300.1750, L803.3000, L3890.6300, L3100.5170 ####[facility] [address] [place], [address] Hematocrit (Bld) [Volume fraction] 45.4 % Normal 37-47 [facility] Comment on above: Performed By: #### L 3100.5140, L509.3000, L3890.6100, L100.0100, L801.2600, L501.9520, L3100.5125, L506.1000, L3400.0000, L500.4050, B882-1, L509.8000, L3100.5400, L501.9985, L3890.6005, L509.4005, L3300.1750, L803.3000, L3890.6300, L3100.5170 ####[facility] [address] [place], [place], [address] Hemoglobin (Bld) [Mass/Vol] 14.7 g/dL Normal 12.0-15.0 [facility] Comment on above: Performed By: #### L 3100.5140, L509.3000, L3890.6100, L100.0100, L801.2600, L501.9520, L3100.5125, L506.1000, L3400.0000, L500.4050, B882-1, L509.8000, L3100.5400, L501.9985, L3890.6005, L509.4005, L3300.1750, L803.3000, L3890.6300, L3100.5170 ####[facility] [address] [place], [place], [address] IG% 0.900 Normal 0.0-0.9 [facility] Comment on above: Result Comment: IG% - Immature Granulocytes (promyelocytes, myelocytes and metamyelocytes) > 1% indicates that a LEFT SHIFT is Present. Performed By: #### L 3100.5140, L509.3000, L3890.6100, L100.0100, L801.2600, L501.9520, L3100.5125, L506.1000, L3400.0000, L500.4050, B882-1, L509.8000, L3100.5400, L501.9985, L3890.6005, L509.4005, L3300.1750, L803.3000, L3890.6300, L3100.5170 ####[facility] [address] [facility] [place], [address] Lymphocytes/100 WBC (Bld) 26.9 % Normal 19-41 [facility] Comment on above: Performed By: #### L 3100.5140, L509.3000, L3890.6100, L100.0100, L801.2600, L501.9520, L3100.5125, L506.1000, L3400.0000, L500.4050, B882-1, L509.8000, L3100.5400, L501.9985, L3890.6005, L509.4005, L3300.1750, L803.3000, L3890.6300, L3100.5170 ####[facility] [address] [facility] [place], [address] MCH (RBC) [Entitic mass] 27.8 pg Normal 27.0-32.0 [facility] Comment on above: Performed By: #### L 3100.5140, L509.3000, L3890.6100, L100.0100, L801.2600, L501.9520, L3100.5125, L506.1000, L3400.0000, L500.4050, B882-1, L509.8000, L3100.5400, L501.9985, L3890.6005, L509.4005, L3300.1750, L803.3000, L3890.6300, L3100.5170 ####[facility] [address] [facility] [place], [address] MCHC (RBC) [Mass/Vol] 32.4 g/dL Normal 32-36 [facility] Comment on above: Performed By: #### L 3100.5140, L509.3000, L3890.6100, L100.0100, L801.2600, L501.9520, L3100.5125, L506.1000, L3400.0000, L500.4050, B882-1, L509.8000, L3100.5400, L501.9985, L3890.6005, L509.4005, L3300.1750, L803.3000, L3890.6300, L3100.5170 ####[facility] [address] [place], [place], [phone](079) MCV (RBC) [Entitic vol] 85.8 fL Normal 81-99 [facility] Comment on above: Performed By: #### L 3100.5140, L509.3000, L3890.6100, L100.0100, L801.2600, L501.9520, L3100.5125, L506.1000, L3400.0000, L500.4050, B882-1, L509.8000, L3100.5400, L501.9985, L3890.6005, L509.4005, L3300.1750, L803.3000, L3890.6300, L3100.5170 ####[facility] [address] [place], [address] Monocytes/100 WBC (Bld) 5.4 % Normal 0-10 [facility] Comment on above: Performed By: #### L 3100.5140, L509.3000, L3890.6100, L100.0100, L801.2600, L501.9520, L3100.5125, L506.1000, L3400.0000, L500.4050, B882-1, L509.8000, L3100.5400, L501.9985, L3890.6005, L509.4005, L3300.1750, L803.3000, L3890.6300, L3100.5170 ####[facility] [address] [place], [address] Neutrophils/100 WBC (Bld) 63.9 % Normal 47-70 [facility] Comment on above: Performed By: #### L 3100.5140, L509.3000, L3890.6100, L100.0100, L801.2600, L501.9520, L3100.5125, L506.1000, L3400.0000, L500.4050, B882-1, L509.8000, L3100.5400, L501.9985, L3890.6005, L509.4005, L3300.1750, L803.3000, L3890.6300, L3100.5170 ####[facility] [address] [place], [place], [id number] Nucleated RBC (Bld) [#/Vol] 0 10*3/uL Normal 0-5 [facility] Comment on above: Performed By: #### L 3100.5140, L509.3000, L3890.6100, L100.0100, L801.2600, L501.9520, L3100.5125, L506.1000, L3400.0000, L500.4050, B882-1, L509.8000, L3100.5400, L501.9985, L3890.6005, L509.4005, L3300.1750, L803.3000, L3890.6300, L3100.5170 ####[facility] [address] [place], [address] Platelet mean volume (Bld) [Entitic vol] 8.7 fL Normal 6.2-12.0 [facility] Comment on above: Performed By: #### L 3100.5140, L509.3000, L3890.6100, L100.0100, L801.2600, L501.9520, L3100.5125, L506.1000, L3400.0000, L500.4050, B882-1, L509.8000, L3100.5400, L501.9985, L3890.6005, L509.4005, L3300.1750, L803.3000, L3890.6300, L3100.5170 ####[facility] [address] [place], [place], [phone] Platelets (Bld) [#/Vol] 348 10*3/uL Normal 150-450 [facility] Comment on above: Performed By: #### L 3100.5140, L509.3000, L3890.6100, L100.0100, L801.2600, L501.9520, L3100.5125, L506.1000, L3400.0000, L500.4050, B882-1, L509.8000, L3100.5400, L501.9985, L3890.6005, L509.4005, L3300.1750, L803.3000, L3890.6300, L3100.5170 ####[facility] [address] [place], [place], [id number] RBC (Bld) [#/Vol] 5.29 10*6/uL Normal 4.2-5.4 [facility] Comment on above: Performed By: #### L 3100.5140, L509.3000, L3890.6100, L100.0100, L801.2600, L501.9520, L3100.5125, L506.1000, L3400.0000, L500.4050, B882-1, L509.8000, L3100.5400, L501.9985, L3890.6005, L509.4005, L3300.1750, L803.3000, L3890.6300, L3100.5170 ####[facility] [address] [place], [address] RDW SD 39.6 fl Normal 35.1-43.9 [facility] Comment on above: Performed By: #### L 3100.5140, L509.3000, L3890.6100, L100.0100, L801.2600, L501.9520, L3100.5125, L506.1000, L3400.0000, L500.4050, B882-1, L509.8000, L3100.5400, L501.9985, L3890.6005, L509.4005, L3300.1750, L803.3000, L3890.6300, L3100.5170 ####[facility] [address] [facility] [place], [place], [id number] WBC (Bld) [#/Vol] 9.4 10*3/uL Normal 4.4-11.0 [facility] Comment on above: Performed By: #### L 3100.5140, L509.3000, L3890.6100, L100.0100, L801.2600, L501.9520, L3100.5125, L506.1000, L3400.0000, L500.4050, B882-1, L509.8000, L3100.5400, L501.9985, L3890.6005, L509.4005, L3300.1750, L803.3000, L3890.6300, L3100.5170 ####[facility] [address] [place], [address] Comprehensive [facility] 05-27-2024 Albumin [Mass/Vol] 3.8 g/dL Normal 3.2-5.0 [facility] Comment on above: Performed By: #### L 3100.5140, L509.3000, L3890.6100, L100.0100, L801.2600, L501.9520, L3100.5125, L506.1000, L3400.0000, L500.4050, B882-1, L509.8000, L3100.5400, L501.9985, L3890.6005, L509.4005, L3300.1750, L803.3000, L3890.6300, L3100.5170 ####[facility] [address] [facility] [place], [address] Albumin/Globulin [Mass ratio] 1.0 {ratio} Normal 0.9-2.4 [facility] Comment on above: Performed By: #### L 3100.5140, L509.3000, L3890.6100, L100.0100, L801.2600, L501.9520, L3100.5125, L506.1000, L3400.0000, L500.4050, B882-1, L509.8000, L3100.5400, L501.9985, L3890.6005, L509.4005, L3300.1750, L803.3000, L3890.6300, L3100.5170 ####[facility] [address] [place], [address] ALK P 86 U/L Normal 45-117 [facility] Comment on above: Performed By: #### L 3100.5140, L509.3000, L3890.6100, L100.0100, L801.2600, L501.9520, L3100.5125, L506.1000, L3400.0000, L500.4050, B882-1, L509.8000, L3100.5400, L501.9985, L3890.6005, L509.4005, L3300.1750, L803.3000, L3890.6300, L3100.5170 ####[facility] [address] [place], [address] ALT [Catalytic activity/Vol] 59 U/L High 13-56 [facility] Comment on above: Performed By: #### L 3100.5140, L509.3000, L3890.6100, L100.0100, L801.2600, L501.9520, L3100.5125, L506.1000, L3400.0000, L500.4050, B882-1, L509.8000, L3100.5400, L501.9985, L3890.6005, L509.4005, L3300.1750, L803.3000, L3890.6300, L3100.5170 ####[facility] [address] [place], [place], [phone] AST [Catalytic activity/Vol] 40 U/L High 15-37 [facility] Comment on above: Performed By: #### L 3100.5140, L509.3000, L3890.6100, L100.0100, L801.2600, L501.9520, L3100.5125, L506.1000, L3400.0000, L500.4050, B882-1, L509.8000, L3100.5400, L501.9985, L3890.6005, L509.4005, L3300.1750, L803.3000, L3890.6300, L3100.5170 ####[facility] [address] [place], [address] Bilirubin [Mass/Vol] 0.50 mg/dL Normal 0.20-1.00 [facility] Comment on above: Result Comment: For patients on eltrombopag therapy, use of Dimension [place] TBIL is not recommended. Performed By: #### L 3100.5140, L509.3000, L3890.6100, L100.0100, L801.2600, L501.9520, L3100.5125, L506.1000, L3400.0000, L500.4050, B882-1, L509.8000, L3100.5400, L501.9985, L3890.6005, L509.4005, L3300.1750, L803.3000, L3890.6300, L3100.5170 ####[facility] [address] [place], [address] BUN/CRE 11.7 RATIO Normal 10-20 [facility] Comment on above: Performed By: #### L 3100.5140, L509.3000, L3890.6100, L100.0100, L801.2600, L501.9520, L3100.5125, L506.1000, L3400.0000, L500.4050, B882-1, L509.8000, L3100.5400, L501.9985, L3890.6005, L509.4005, L3300.1750, L803.3000, L3890.6300, L3100.5170 ####[facility] [address] [place], [place], [phone] CA,Total 9.1 mg/dL Normal 8.5-10.1 [facility] Comment on above: Performed By: #### L 3100.5140, L509.3000, L3890.6100, L100.0100, L801.2600, L501.9520, L3100.5125, L506.1000, L3400.0000, L500.4050, B882-1, L509.8000, L3100.5400, L501.9985, L3890.6005, L509.4005, L3300.1750, L803.3000, L3890.6300, L3100.5170 ####[facility] [address] [place], [place], [phone] Chloride [Moles/Vol] 107 mmol/L Normal 98-107 [facility] Comment on above: Performed By: #### L 3100.5140, L509.3000, L3890.6100, L100.0100, L801.2600, L501.9520, L3100.5125, L506.1000, L3400.0000, L500.4050, B882-1, L509.8000, L3100.5400, L501.9985, L3890.6005, L509.4005, L3300.1750, L803.3000, L3890.6300, L3100.5170 ####[facility] [address] [place], [place], [phone] CO2 [Moles/Vol] 24.0 mmol/L Normal 21.0-32.0 [facility] Comment on above: Performed By: #### L 3100.5140, L509.3000, L3890.6100, L100.0100, L801.2600, L501.9520, L3100.5125, L506.1000, L3400.0000, L500.4050, B882-1, L509.8000, L3100.5400, L501.9985, L3890.6005, L509.4005, L3300.1750, L803.3000, L3890.6300, L3100.5170 ####[facility] [address] [place], [place], [phone] Creatinine [Mass/Vol] 0.68 mg/dL Normal 0.55-1.02 [facility] Comment on above: Result Comment: The validity of the calculated GFR GFRAA in patients over 70 years has not been determined. Clinical correlation is essential. Performed By: #### L 3100.5140, L509.3000, L3890.6100, L100.0100, L801.2600, L501.9520, L3100.5125, L506.1000, L3400.0000, L500.4050, B882-1, L509.8000, L3100.5400, L501.9985, L3890.6005, L509.4005, L3300.1750, L803.3000, L3890.6300, L3100.5170 ####[facility] [address] [place], [place], [id number] EST GFR - AA 126 mL/min Normal >60 [facility] Comment on above: Result Comment: Afri can Cameroonian GFR Calc Performed By: #### L 3100.5140, L509.3000, L3890.6100, L100.0100, L801.2600, L501.9520, L3100.5125, L506.1000, L3400.0000, L500.4050, B882-1, L509.8000, L3100.5400, L501.9985, L3890.6005, L509.4005, L3300.1750, L803.3000, L3890.6300, L3100.5170 ####[facility] [address], [address] GAP 7 Normal 5-15 [facility] Comment on above: Performed By: #### L 3100.5140, L509.3000, L3890.6100, L100.0100, L801.2600, L501.9520, L3100.5125, L506.1000, L3400.0000, L500.4050, B882-1, L509.8000, L3100.5400, L501.9985, L3890.6005, L509.4005, L3300.1750, L803.3000, L3890.6300, L3100.5170 ####[facility] [address] [place], [address] GFR/1.73 sq M.predicted among non-blacks MDRD (S/P/Bld) [Vol rate/Area] 104 mL/min/{1.73_m2} Normal >60 [facility] Comment on above: Result Comment: Non- GFR Calc Performed By: #### L 3100.5140, L509.3000, L3890.6100, L100.0100, L801.2600, L501.9520, L3100.5125, L506.1000, L3400.0000, L500.4050, B882-1, L509.8000, L3100.5400, L501.9985, L3890.6005, L509.4005, L3300.1750, L803.3000, L3890.6300, L3100.5170 ####[facility] [address], [address] Globulin (S) [Mass/Vol] 4.0 g/dL Normal 2.2-4.2 [facility] Comment on above: Performed By: #### L 3100.5140, L509.3000, L3890.6100, L100.0100, L801.2600, L501.9520, L3100.5125, L506.1000, L3400.0000, L500.4050, B882-1, L509.8000, L3100.5400, L501.9985, L3890.6005, L509.4005, L3300.1750, L803.3000, L3890.6300, L3100.5170 ####[facility] [address] [place], [place], [phone] Glucose [Mass/Vol] 98 mg/dL Normal 74-106 [facility] Comment on above: Performed By: #### L 3100.5140, L509.3000, L3890.6100, L100.0100, L801.2600, L501.9520, L3100.5125, L506.1000, L3400.0000, L500.4050, B882-1, L509.8000, L3100.5400, L501.9985, L3890.6005, L509.4005, L3300.1750, L803.3000, L3890.6300, L3100.5170 ####[facility] [address] [facility] [place], [address] Potassium [Moles/Vol] 3.9 mmol/L Normal 3.5-5.1 [facility] Comment on above: Performed By: #### L 3100.5140, L509.3000, L3890.6100, L100.0100, L801.2600, L501.9520, L3100.5125, L506.1000, L3400.0000, L500.4050, B882-1, L509.8000, L3100.5400, L501.9985, L3890.6005, L509.4005, L3300.1750, L803.3000, L3890.6300, L3100.5170 ####[facility] [address] [facility] [place], [address] Sodium [Moles/Vol] 138 mmol/L Normal 136-145 [facility] Comment on above: Performed By: #### L 3100.5140, L509.3000, L3890.6100, L100.0100, L801.2600, L501.9520, L3100.5125, L506.1000, L3400.0000, L500.4050, B882-1, L509.8000, L3100.5400, L501.9985, L3890.6005, L509.4005, L3300.1750, L803.3000, L3890.6300, L3100.5170 ####[facility] [address] [place], [address] T PROT 7.8 g/dL Normal 6.4-8.2 [facility] Comment on above: Performed By: #### L 3100.5140, L509.3000, L3890.6100, L100.0100, L801.2600, L501.9520, L3100.5125, L506.1000, L3400.0000, L500.4050, B882-1, L509.8000, L3100.5400, L501.9985, L3890.6005, L509.4005, L3300.1750, L803.3000, L3890.6300, L3100.5170 ####[facility] [address] [place], [address] Urea nitrogen [Mass/Vol] 8 mg/dL Normal 7-18 [facility] Comment on above: Performed By: #### L 3100.5140, L509.3000, L3890.6100, L100.0100, L801.2600, L501.9520, L3100.5125, L506.1000, L3400.0000, L500.4050, B882-1, L509.8000, L3100.5400, L501.9985, L3890.6005, L509.4005, L3300.1750, L803.3000, L3890.6300, L3100.5170 ####[facility] [address] [place], [address] Estradiolon 05-27-2024 ESTRADIOL 133.9 pg/mL Normal [facility] Comment on above: Result Comment: NORM AL [...] L501.9985, L3890.6005, L509.4005, L3300.1750, L803.3000, L3890.6300, L3100.5170 ####[facility] [address] [place], [place], [phone] Follicle Stimulating Hormone on 05-27-2024 FSH 5.8 mIU/mL Normal [facility] Comment on above: Result Comment: NORMAL REFERENCE [...] L501.9985, L3890.6005, L509.4005, L3300.1750, L803.3000, L3890.6300, L3100.5170 ####[facility] [address] [place], [address] HIV - WCHon 05-27-2024 HIV Non-Reactive Normal Nonreactive [facility] Comment on above: Performed By: #### M 100.1999, M1.3200 #### [facility] [address] [place], [address] Hemoglobin A1con 05-27-2024 HbA1c (Bld) [Mass fraction] 5.4 % Normal 3.8-5.6 [facility] Comment on above: Result Comment: Norm al < 5.7 % Prediabetic 5.7 - 6.4 % Diabetic >or= 6.5 % Please note range changes. Performed By: #### M 100.1999, M1.3200 #### [facility] [address] [place], [address] Hepatitis B Surface Antigeno n 05-27-2024 HEP B Surf Ag Non-Reactive Normal Nonreactive [facility] Comment on above: Performed By: #### M 100.1999, M100.3200 #### [facility] [address] [facility] [place], [address] Hepatitis C Antibodyon 05-27 Hepatitis C AB Non-Reactive Normal Nonreactive [facility] Comment on above: Result Comment: Non Reactive: < 0.8 Equivocal: >/= 0.8 to < 1.0 Reactive: >/= 1.0 The CDC requires that a reactive/equivocal HCV antibody result be sent out for confirmation. HCV Quant by PCR testing. Performed By: #### M 100.2000, M100.3200 #### [facility] [address] [place], [address] L509.8000on 05-27-2024 Syphilis Abs Non-Reactive Normal [facility] Comment on above: Performed By: #### L 3100.5140, L509.3000, L3890.6100, L100.0100, L801.2600, L501.9520, L3100.5125, L506.1000, L3400.0000, L500.4050, B882-1, L509.8000, L3100.5400, L501.9985, L3890.6005, L509.4005, L3300.1750, L803.3000, L3890.6300, L3100.5170 ####[facility] [address] [place], [address] Luteinizing Hormoneon 2023 LH 17.0 mIU/mL Normal [facility] Comment on above: Result Comment: NORMAL REFERENCE [...] L501.9985, L3890.6005, L509.4005, L3300.1750, L803.3000, L3890.6300, L3100.5170 ####[facility] [address] [place], [address] Rubella IgGon 05-27-2024 Rubella IgG Reactive Normal Nonreactive [facility] Comment on above: Result Comment: Anti body Results Interpretation of Immune Status Non Reactive Presumed Non-Immune Equivocal Equivocal Reactive Presumed Immune Performed By: #### L 3100.5140, L509.3000, L3890.6100, L100.0100, L801.2600, L501.9520, L3100.5125, L506.1000, L3400.0000, L500.4050, B882-1, L509.8000, L3100.5400, L501.9985, L3890.6005, L509.4005, L3300.1750, L803.3000, L3890.6300, L3100.5170 ####[facility] [address] [place], [place], [id number] Testosterone, Serum Totalon 05-27-2024 Testosterone [Mass/Vol] 44.25 ng/dL Normal [facility] Comment on above: Result Comment: CENT RAL [...] L501.9985, L3890.6005, L509.4005, L3300.1750, L803.3000, L3890.6300, L3100.5170 ####[facility] [address] [place], [place], [id number] Thyroid Stim Hormone (TSH)on 05-27-2024 TSH 1.510 uIU/mL Normal 0.358-3.740 [facility] Comment on above: Performed By: #### L 3100.5140, L509.3000, L3890.6100, L100.0100, L801.2600, L501.9520, L3100.5125, L506.1000, L3400.0000, L500.4050, B882-1, L509.8000, L3100.5400, L501.9985, L3890.6005, L509.4005, L3300.1750, L803.3000, L3890.6300, L3100.5170 ####[facility] [address] [place], [address] Vitamin D,25 Hydroxyon 05-27 Vitamin D 25-OH 29.8 ng/mL Normal [facility] Comment on above: Result Comment: Tara min D 25(OH) Status Range Deficiency <20 ng/mL (50nmol/L) Insufficiency 20 - 30 ng/mL (50 - 75 nmol/L) Sufficiency 30 - 100 ng/mL (75 - 250 nmol/L) Toxicity >100 ng/mL (>250 nmol/L) Performed By: #### L 3100.5140, L509.3000, L3890.6100, L100.0100, L801.2600, L501.9520, L3100.5125, L506.1000, L3400.0000, L500.4050, B882-1, L509.8000, L3100.5400, L501.9985, L3890.6005, L509.4005, L3300.1750, L803.3000, L3890.6300, L3100.5170 ####[facility] [address] [place], [place], [phone] CNOVon 01-12-2024 CNOV Office Visit (UCWSTR) BARBY CABALLERO ([id number]) 1990 F Date Time Provider Department 01/12/24 10:30 AM GINA SAHU During your visit today, we recorded the following information about you: Temperature Pulse Respiration Blood pressure 97.9 degrees 134/minute 20/minute 118/78 Weight 120.3 kg Gina Sahu APRN.LOCKER ATTENDANT 01/12/2024 11:22 AM Signed CC: Patient presents [...] Patient agreeable to treatment plan. Gina Sahu APRN.LOCKER ATTENDANT Allergies As of Date: 01/12/2024 (No Active [...] MOUTH EVERY (more content not included)... Normal [facility] TSH W/FT4 REFLEXon TSH 1.264 uIU/mL Normal 0.550-4.780 [facility] Comment on above: Performed By: #### T SHQR #### [facility] (DEFAULT) [address] [place] [address] PROGESTERONEon 04-03-2023 Progesterone 15.64 ng/mL Normal [facility] Comment on above: Result Comment: This test is not recommended for patients receiving DHEA due to cross reactivity of DHEA S in the progesterone assay. Reference Range: Males: 0.28-1.22 ng/mL Females: Follicular phase 0-1.40 ng/mL Luteal phase 3.34-25.56 ng/mL Midluteal phase 4.44-28.03 ng/mL Postmenopausal 0-0.73 ng/mL Performed By: #### P DIANDRA #### [facility] (DEFAULT) [address] [address] MAMMO DIAGNOSTIC WITH ADRIANA B ILATERALon 01-09-2023 MAMMO DIAGNOSTIC WITH ADRIANA BILATERAL EXAM: MAMMO DIAGNOSTIC WITH ADIRANA BILATERAL, US BREAST LIMITED UNILATERAL RIGHT, 01/09/2023 09:20 AM (accession [id number]), 01/09/2023 09:31 AM (accession [id number]) CLINICAL INDICATIONS: The patient reports right upper [...] correlation/manageme nt. Recommendation Laterality: Right [facility] MG Breast - bilateral Diagno sticon 01-09-2023 IMPRESSION: 1. No suspicious mammographic or sonographic findings in the right breast to explain symptoms. 2. No suspicious mammographic findings in the left breast. BI-RADS: 1: Negative Recommendation: Clinical correlation/manageme nt. Recommendation Laterality: Right OLOGY EXAM: MAMMO DIAGNOSTIC WITH ADRIANA BILATERAL, US BREAST LIMITED UNILATERAL RIGHT, 01/09/2023 09:20 AM (accession [id number]), 01/09/2023 09:31 AM (accession [id number]) CLINICAL INDICATIONS: The patient reports right upper [...] LIMITED UNILATERAL RIGHT, 01/09/2023 09:20 AM (accession [id number]), 01/09/2023 09:31 AM (accession [id number]) CLINICAL INDICATIONS: The patient reports right upper [...] Recommendation: Clinical correlation/manageme nt. Recommendation Laterality: Right [facility] Radiology Study observation (narrative) [facility] MG Breast - bilateral Diagno sticOrdered By: Nettie Trejo on 01-09-2023 [facility] US BREAST LIMITED UNILATERAL RIGHTon 01-09-2023 US BREAST LIMITED UNILATERAL RIGHT EXAM: MAMMO DIAGNOSTIC WITH ADRIANA BILATERAL, US BREAST LIMITED UNILATERAL RIGHT, 01/09/2023 09:20 AM (accession [id number]), 01/09/2023 09:31 AM (accession [id number]) CLINICAL INDICATIONS: The patient reports right upper [...] Normal [facility] HEMOGLOBIN [id number] By: Sa frde Carbajal on 09-27-2022 Average glucose Estimated from glycated hemoglobin (Bld) [Mass/Vol] 105 mg/dL [facility] HbA1c (Bld) [Mass fraction] 5.3 % 4.7 - 5.6 % [facility] HEMOGLOBIN A1Con 09-27-2022 Glucose [Mass/Vol] 105 mg/dL Normal [facility] Comment on above: Performed By: #### A 1CB #### [facility] (DEFAULT) [address] [place] [address] HbA1c (Bld) [Mass fraction] 5.3 % Normal 4.7-5.6 [facility] Comment on above: Performed By: #### A 1CB #### [facility] (DEFAULT) [address] [place] [address] LIPID PANEL WITH REFLEX TO M DEE LDLon 09-27-2022 Calculated LDL Cholesterol 51 mg/dL Normal 0-99 [facility] Comment on above: Result Comment: [<10 0 mg/dL: Optimal] [100-129 mg/dL: Near Optimal] [130-159 mg/dL: Borderline High] [160-189 mg/dL: High] [>189 mg/dL: Very High] Performed By: #### L IPDR #### [facility] (DEFAULT) [address] [place] [address] Cholesterol [Mass/Vol] 122 mg/dL Normal <200 [facility] Comment on above: Result Comment: [<20 0 mg/dL: Desirable] [200-239 mg/dL: Borderline High] [>239 mg/dL: High] Performed By: #### L IPDR #### [facility] (DEFAULT) [address] [place] [address] Cholesterol in HDL [Mass/Vol] 50 mg/dL Normal >=40 [facility] Comment on above: Result Comment: [<40 mg/dL: Low (High Risk)] [>59 mg/dL: High (Low Risk)] Performed By: #### L IPDR #### [facility] (DEFAULT) [address] [place] [address] Non HDL Cholesterol 72 mg/dL Normal <130 [facility] Comment on above: Performed By: #### L IPDR #### [facility] (DEFAULT) [address] [place] [address] Total Cholesterol/HDL Ratio 2.4 Normal <4.5 [facility] Comment on above: Performed By: #### L IPDR #### [facility] [address] [place] [address] Triglyceride [Mass/Vol] 104 mg/dL Normal <150 [facility] Comment on above: Result Comment: [<15 0 mg/dL: Desirable] [150-199 mg/dL: Borderline] [200-499 mg/dL: High] [>500 mg/dL: Very High] Performed By: #### L IPDR #### [facility] (DEFAULT) [address] [place] [address] Cholesterol [Mass/Vol] 122 mg/dL NINF - 200 mg/dL [facility] Comment on above: [<200 mg/dL: Desirab le] [200-239 mg/dL: Borderline High] [>239 mg/dL: High] Cholesterol in HDL [Mass/Vol] 50 mg/dL 40 - PINF mg/dL [facility] Comment on above: [<40 mg/dL: Low (Hig h Risk)] [>59 mg/dL: High (Low Risk)] Cholesterol in HDL [Mass/Vol] 72 mg/dL NINF - 130 mg/dL [facility] Cholesterol in LDL [Mass/Vol] 51 mg/dL 0 - 99 mg/dL [facility] Comment on above: [<100 mg/dL: Optimal ] [100-129 mg/dL: Near Optimal] [130-159 mg/dL: Borderline High] [160-189 mg/dL: High] [>189 mg/dL: Very High] Cholesterol.total/Mellissa sterol in HDL [Mass ratio] 2.4 {ratio} NINF - 4.5 [facility] Interpretation and review of laboratory results Normal [facility] Triglyceride [Mass/Vol] 104 mg/dL NINF - 150 mg/dL [facility] Comment on above: [<150 mg/dL: Desirab le] [150-199 mg/dL: Borderline] [200-499 mg/dL: High] [>500 mg/dL: Very High] [facility] PROLACTINon 09-27-2022 Prolactin [Mass/Vol] 4.4 ng/mL [facility] Comment on above: Reference Range: Females Non: 2.8-29.2 ng/mL : 9.7-208.5 ng/mL Postmenopausal: 1.8-20.3 ng/mL <2 years: 3.3-14.7 ng/mL 2-5 years: 1.0-12.8 ng/mL 6-10 years: 1.2-11.4 ng/mL 11-17 years: 1.4-14.3 ng/mL Males: 2.1-17.7 ng/mL [facility] Prolactin 4.4 ng/mL Normal [facility] Comment on above: Result Comment: Refe rence Range: Females Non: 2.8-29.2 ng/mL : 9.7-208.5 ng/mL Postmenopausal: 1.8-20.3 ng/mL <2 years: 3.3-14.7 ng/mL 2-5 years: 1.0-12.8 ng/mL 6-10 years: 1.2-11.4 ng/mL 11-17 years: 1.4-14.3 ng/mL Males: 2.1-17.7 ng/mL Performed By: #### P ROL, TSHQR #### [facility] (DEFAULT) [address] [place] [address] TSH W/FT4 REFLEXon 2 Interpretation and review of laboratory results Normal [facility] TSH Qn 1.680 m[IU]/L [facility] TSH 1.680 uIU/mL Normal 0.550-4.780 [facility] Comment on above: Performed By: #### P ROL, TSHQR #### [facility] (DEFAULT) [address] [place], [place] [id number] 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, 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 Result Comment: ? Ne gative for Intraepithelial Lesion or Malignancy ? HPV Results Reported in Attached Report This Pap Test was imaged with the assistance of the [employer] ThinPrep Imaging System and screened by a Telegraph And Teletype Operator. 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 Result Comment: Gyne cologic Cytology Report Case: [id number] Authorizing Provider: Faith Starkey MD Collected: 09/05/2022 03:07 PM Ordering Location: Obstetrics and Gynecology Received: 09/05/2022 04:39 PM [facility] First Screen: Tammy Alberto Rescreen: Monika Tenorio Specimen: Cervical/Endocervical, ThinPrep, Cervical/Endocervical Performed By: #### T HINP #### [facility] (DEFAULT) [address] [place] [address] HPV Reflex? 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 Result Comment: [facility] Immediate 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 Performed By: #### T HINP #### [facility] (DEFAULT) [address] [address] HPV WITH GENOTYPING (WITH VIRGILIO FARRIS)on 09-05-2022 HPV Genotype 16 Negative Normal Negative 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 HPV DNA detection performed by Real-Time PCR. The assay detects HPV 16, 18, 31, 33, 35, 39, 45, 51, 52, 56, 58, 59, 66, 68.Testing performed at [facility]. Performed By: #### H PVGCO #### [facility] (DEFAULT) [address] [address] HPV Genotype 18 Negative Normal Negative 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 HPV DNA detection performed by Real-Time PCR. The assay detects HPV 16, 18, 31, 33, 35, 39, 45, 51, 52, 56, 58, 59, 66, 68.Testing performed at [facility]. Performed By: #### H PVGCO #### [facility] (DEFAULT) [address] [place] [id number] HPV Other High Risk Types, PCR Negative [...] Performed By: #### H PVGCO #### U [facility] (DEFAULT) [address] [address] COVID-19, MOLECULARon 2020 SARS-CoV-2 (COVID-19) RNA CONCHITA+probe Ql (Unsp spec) Not detected Normal Not Detected [facility] Comment on above: Result Comment: This test was performed under the FDA's Emergency Use Authorization (EUA). Testing was performed using the Xpert?? Xpress SARS-CoV-2/Flu/RSV plus RT-PCR 19pay assay on the R[employer] Xpress System. This test has not been approved for use in asymptomatic patients and its performance in this patient population has not been evaluated. Negative results do not rule out the presence of SARS-CoV-2/COVID-19. Fact sheets for this EUA can be found at the following links: For Healthcare Providers: https://www.fda.gov/media/481991/download For Patients: https://www.fda.gov/media/867254/download Performed By: #### L [id number] #### [facility] [address] [address] Xiang Chahal M.D. [id number] CT ABDOMEN PELVIS WITH IV CO NTRAST [...] SatSep 15, 2021 2:13:51 PM EST Normal [facility] Comment on above: Order Comment: [...] SatSep 15, 2021 3:56:08 PM EST Normal [facility] Comment on above: Order Comment: [...] The remaining study is within normal limits. [employer] Workstation ID: [id number] Dictated by: JEANA LIND on SatSep 15, 2021 9:29:20 AM EST Transcribed by: CARLOS WEATHERS on SatSep 15, 2021 9:33:21 AM EST Finalized by: JEAAN ILND on SatSep 15, 2021 9:36:51 AM EST Normal [facility] Comment on above: Order Comment: US Ga llbladder Injury/Trauma or Illness?:Illness/Other How long have you had these symptoms (acute/chronic)?:Acute Reason for exam?:RUQ pain History of cancer?:no Surgeries, chemotherapy, or radiation?:no Type of Exam?:Initial Additional signs and symptoms?:none COVID-19, MOLECULARon 2019 INTERNAL CONTROL (ABBOT ID) Pass Normal [facility] SARS-COV-2 (SPEARS ID) Not Detected Normal Not Detecte d [facility] POC COVID-19 Molecularon Internal Control Pass [facility] Interpretation and review of laboratory results Normal [facility] SARS-CoV-2 Not Detected Not Detected [facility] BMPon 07-29-2019 Anion gap [Moles/Vol] 19 mmol/L 10 - 20 mmol/L [facility] Calcium [Mass/Vol] 9.6 mg/dL 8.4 - 10. 2 mg/dL [facility] Chloride [Moles/Vol] 105 mmol/L 98 - 10 8 mmol/L [facility] Creatinine [Mass/Vol] 0.62 mg/dL 0.4 - 1.1 mg/dL [facility] GFR/1.73 sq M predicted among non-blacks MDRD (S/P/Bld) [Vol rate/Area] The eGFR should be used for monitoring renal function only and not for medication dosing. [facility] GFR/1.73 sq M.predicted CKD-EPI (S/P/Bld) [Vol rate/Area] 122 >=60 mL/min/1.73 m2 [facility] Glucose [Mass/Vol] 104 mg/dL High 65 - 99 mg/dL [facility] HCO3 [Moles/Vol] 22 mmol/L 21 - 32 mmol/L [facility] Interpretation and review of laboratory results Abnormal [facility] Potassium [Moles/Vol] 4.2 mmol/L 3.5 - 5.1 mmol/L [facility] Sodium [Moles/Vol] 142 mmol/L 135 - 145 mmol/L [facility] Urea nitrogen [Mass/Vol] 11 mg/dL 8 - 25 mg/dL [facility] Urea nitrogen/Creatinine [Mass ratio] 17.7 mg/mg [facility] CBC WITH AUTO DIFFERENTIALon 07-29-2019 Basophils (Bld) [#/Vol] 0.03 10*3/uL [facility] Basophils/100 WBC (Bld) 0.3 % [facility] Eosinophils (Bld) [#/Vol] 0.14 10*3/uL [facility] Eosinophils/100 WBC (Bld) 1.2 % [facility] Erythrocyte distribution width (RBC) [Entitic vol] 13.9 % 11.6 - 14.8 % [facility] Hematocrit (Bld) [Volume fraction] 41.0 % 36 - 46 % [facility] Hemoglobin (Bld) [Mass/Vol] 13.0 g/dL 12 - 16 g/dL [facility] Interpretation and review of laboratory results Abnormal [facility] Lymphocytes (Bld) [#/Vol] 3.19 10*3/uL [facility] Lymphocytes/100 WBC (Bld) 28.0 % [facility] MCH (RBC) [Entitic mass] 26.3 pg 26 - 34 pg [facility] MCHC (RBC) [Mass/Vol] 31.7 g/dL 31 - 37 g/dL [facility] (RBC) [Entitic vol] 82.8 fL 80 - 100 fL [facility] Monocytes (Bld) [#/Vol] 0.45 10*3/uL [facility] Monocytes/100 WBC (Bld) 4.0 % [facility] Neutrophils (Bld) [#/Vol] 7.57 10*3/uL High [facility] Neutrophils/100 WBC (Bld) 66.5 % [facility] Nucleated RBC (Bld) [#/Vol] 0.00 10*3/uL [facility] Nucleated RBC/100 WBC (Bld) [Ratio] 0.0 % [facility] Platelet mean volume (Bld) [Entitic vol] 8.9 fL Low 9 - 15.5 fL [facility] Platelets (Bld) [#/Vol] 353 10*3/uL [facility] RBC (Bld) [#/Vol] 4.95 10*6/uL [facility] ealth WBC (Bld) [#/Vol] 11.38 10*3/uL [facility] Hepatic Function Panel (LFT) on 07-29-2019 Albumin [Mass/Vol] 4.3 g/dL 3.2 - 5.2 g/dL [facility] ALP [Catalytic activity/Vol] 83 U/L 40 - 140 U/L [facility] ALT [Catalytic activity/Vol] 19 U/L 0 - 40 U/L [facility] AST [Catalytic activity/Vol] 16 U/L 0 - 45 U/L [facility] Bilirubin [Mass/Vol] mg/dL 0 - 1.3 mg/dL [facility] Bilirubin.conjugated [Mass/Vol] mg/dL 0 - 0.4 mg/dL [facility] Protein [Mass/Vol] 7.6 g/dL 6 - 8 g/dL [facility]th Lipaseon 07-29-2019 Lipase [Catalytic activity/Vol] 30 U/L 15 - 65 U/L [facility] Otheron 07-29-2019 Interpretation and review of laboratory results Normal [facility] Interpretation and review of laboratory results Normal [facility] POC Urinalysis Dipstickon Bilirubin Ql (U) Negative Negative [facility] Glucose Ql (U) Negative Normal, Negative mg/dL [facility] Hemoglobin Ql (U) Negative Negative [facility] Ketones Ql (U) Negative Negative mg/dL [facility]th Leukocyte esterase Test strip Ql (U) Negative Negative [facility] Nitrite Ql (U) Negative Negative [facility] pH (U) 5.0 [pH] [facility] Protein Ql (U) Negative Negative mg/dL [facility]th Urobilinogen Qn (U) Negative <2.0, 0. 2, Normal, Negative, 1.0, 2.0, <1.0 mg/dL [facility] POC Urine Pregnancyon 2018 HCG ( test) Ql (U) Negative Negative [facility] Internal Control Pass [facility] US ABDOMEN LIMITED STUDYon 1 1. There is a small 4 mm echogenic focus in the nondependent portion of the gallbladder wall which may reflect a small amount of adherent gallbladder sludge or a small benign cholesterol polyp. No further follow-up is required. 2. Otherwise unremarkable right upper quadrant abdominal ultrasound. [employer] Workstation ID: [id number] [facility] EXAMINATION: US ABDOMEN LIMITED STUDY HISTORY: ORDERING [...] free fluid in the right upper quadrant. [facility] Interface, Rad In [employer] Speechq - 07/29/2019 [...] quadrant abdominal ultrasound. [employer] Workstation ID: [id number] [facility] Urinalysison 07-29-2019 Specific gravity (U) [Rel density] 1.005 [facility] BMPon 03-19-2019 Anion gap [Moles/Vol] 17 mmol/L 10 - 20 mmol/L [facility] Calcium [Mass/Vol] 9.9 mg/dL 8.4 - 10. 2 mg/dL [facility] Chloride [Moles/Vol] 104 mmol/L 98 - 10 8 mmol/L [facility] Creatinine [Mass/Vol] 0.60 mg/dL 0.4 - 1.1 mg/dL [facility] GFR/1.73 sq M predicted among non-blacks MDRD (S/P/Bld) [Vol rate/Area] The eGFR should be used for monitoring renal function only and not for medication dosing. [facility] GFR/1.73 sq M.predicted CKD-EPI (S/P/Bld) [Vol rate/Area] 124 >=60 mL/min/1.73 m2 [facility] Glucose [Mass/Vol] 115 mg/dL High 65 - 99 mg/dL [facility] HCO3 [Moles/Vol] 23 mmol/L 21 - 32 mmol/L [facility] Interpretation and review of laboratory results Abnormal [facility] Potassium [Moles/Vol] 3.9 mmol/L 3.5 - 5.1 mmol/L [facility] Sodium [Moles/Vol] 140 mmol/L 135 - 145 mmol/L [facility] Urea nitrogen [Mass/Vol] 9 mg/dL 8 - 25 mg/dL [facility] Urea nitrogen/Creatinine [Mass ratio] 15.0 mg/mg [facility] CBC WITH AUTO DIFFERENTIALon 03-19-2019 Basophils (Bld) [#/Vol] 0.04 10*3/uL [facility] Basophils/100 WBC (Bld) 0.2 % [facility] Eosinophils (Bld) [#/Vol] 0.35 10*3/uL [facility] Eosinophils/100 WBC (Bld) 2.1 % [facility] Erythrocyte distribution width (RBC) [Entitic vol] 14.0 % 11.6 - 14.8 % [facility] Hematocrit (Bld) [Volume fraction] 41.7 % 36 - 46 % [facility] Hemoglobin (Bld) [Mass/Vol] 13.4 g/dL 12 - 16 g/dL [facility] Interpretation and review of laboratory results Abnormal [facility] Lymphocytes (Bld) [#/Vol] 5.33 10*3/uL High [facility] Lymphocytes/100 WBC (Bld) 31.6 % [facility] MCH (RBC) [Entitic mass] 26.2 pg 26 - 34 pg [facility] MCHC (RBC) [Mass/Vol] 32.1 g/dL 31 - 37 g/dL [facility] MCV (RBC) [Entitic vol] 81.4 fL 80 - 100 fL [facility] Monocytes (Bld) [#/Vol] 0.93 10*3/uL [facility] Monocytes/100 WBC (Bld) 5.5 % [facility] Neutrophils (Bld) [#/Vol] 10.22 10*3/uL [facility] Neutrophils/100 WBC (Bld) 60.6 % [facility] Nucleated RBC (Bld) [#/Vol] 0.00 10*3/uL [facility] Nucleated RBC/100 WBC (Bld) [Ratio] 0.0 % [facility] Platelet mean volume (Bld) [Entitic vol] 8.7 fL Low 9 - 15.5 fL [facility] Platelets (Bld) [#/Vol] 418 10*3/uL High [facility] RBC (Bld) [#/Vol] 5.12 10*6/uL [facility] ealth WBC (Bld) [#/Vol] 16.87 10*3/uL [facility] D-DIMER, QUANTITATIVEon 03-01 Fibrin D-dimer FEU (PPP) [Mass/Vol] 0.42 0.27 - 0.49 mcg/mL FEU [facility] Interpretation and review of laboratory results Normal [facility] A D-dimer concentration of <0.5 micrograms per milliliter FEU is considered a low probability for pulmonary embolus (PE) and deep venous thrombosis (DVT). Results of this test should always be interpreted in conjunction with the patient's medical history,clinical presentation, and other findings. Clinical diagnosis should not be based on the results of the D-dimer alone. [facility] Hepatic Function Panel (LFT) on 03-19-2019 Albumin [Mass/Vol] 4.4 g/dL 3.2 - 5.2 g/dL [facility] ALP [Catalytic activity/Vol] 109 U/L 40 - 140 U/L [facility] ALT [Catalytic activity/Vol] 17 U/L 0 - 40 U/L [facility] AST [Catalytic activity/Vol] 16 U/L 0 - 45 U/L [facility] Bilirubin [Mass/Vol] mg/dL 0 - 1.3 mg/dL [facility] Bilirubin.conjugated [Mass/Vol] mg/dL 0 - 0.4 mg/dL [facility] Protein [Mass/Vol] 8.0 g/dL 6 - 8 g/dL [facility]th Lipaseon 03-19-2019 Lipase [Catalytic activity/Vol] 39 U/L 15 - 65 U/L [facility] Otheron 03-19-2019 Extra Tube Hold for add-ons. [facility] Comment on above: Auto resulted. Interpretation and review of laboratory results Normal [facility] POC Urine Pregnancyon 2018 HCG ( test) Ql (U) Negative Negative [facility] Internal Control Pass [facility] th Interpretation and review of laboratory results Normal [facility] Specific gravity (U) [Rel density] 1.005 [facility] TROPONINon 03-19-2019 Troponin T.cardiac [Mass/Vol] ug/L <=14 ng/L [facility] Troponin T.cardiac [Mass/Vol] No biomarker evidence of cardiac injury. [facility] Troponin T.cardiac [Mass/Vol] ug/L <=14 ng/L [facility] Troponin T.cardiac [Mass/Vol] Normal [facility] XR CHEST AP/PA AND LATon Mild perihilar and lingular/bibasilar atelectatic change with no other acute process. [employer] Workstation ID: [id number] [facility] Interface, Rad In [facility] Speechq - 03/19/2019 6:01 AM EDT [...] other acute process. [facility] Workstation ID: [id number] [facility] EXAMINATION: XR CHEST AP/PA AND LAT HISTORY: [...] unremarkable. There is no acute osseous abnormality. [facility] ECG 12-LEADon 03-18-2019 Laurent Duque MD 03/19/2019 3:41 AM EKG 12-lead Date/Time: 03/18/2019 11:49 PM Performed by: Laurent Duque MD Authorized by: Laurent Duque MD Interpreted by ED attending physician Comparison: not compared with previous ECG BPM: 103 Comments: Rate 103, sinus tachycardia, normal QRS interval, normal axis, no acute ST elevation, interpreted by [facility] Vital Signs Date Time Vital Sign Value Performing Clinician Facility 05-06-2025 14:10-0400 Body height 157.[address] Steffen Eisenberg MD Work Phone: [facility] 05-06-2025 14:09-0400 Body mass index (BMI) [Ratio] 49.6 kg/m2 Dr. Steffen Eisenberg MD Work Phone: [facility] 05-06-2025 14:09-0400 Body weight [address] Steffen Eisenberg MD Work Phone: [facility] 05-06-2025 14:09-0400 Diastolic blood pressure 84 mm[Hg] Dr. Steffen Eisenberg MD Work Phone: [facility] 05-06-2025 14:09-0400 Systolic blood pressure 125 mm[Hg] Dr. Steffen Eisenberg MD Work Phone: [facility] 04-28-2025 14:05-0400 Body height 157.[address] Steffen Eisenberg MD Work Phone: [facility] 04-28-2025 14:03-0400 Body mass index (BMI) [Ratio] 48.5 kg/m2 Dr. Steffen Eisenberg MD Work Phone: [facility] 04-28-2025 14:03-0400 Body weight 120.[address] Steffen Eisenberg MD Work Phone: [facility] 04-28-2025 14:03-0400 Diastolic blood pressure 86 mm[Hg] Dr. Steffen Eisenberg MD Work Phone: [facility] 04-28-2025 14:03-0400 Systolic blood pressure 123 mm[Hg] Dr. Steffen Eisenberg MD Work Phone: [facility] 04-20-2025 14:13-0400 Body height 157.[address] Steffen Eisenberg MD Work Phone: [facility] 04-20-2025 14:13-0400 Body mass index (BMI) [Ratio] 49 kg/m2 Dr. Steffen Eisenberg MD Work Phone: [facility] 04-20-2025 14:13-0400 Body weight 121.[address] Steffen Eisebnerg MD Work Phone: [facility] 04-20-2025 14:13-0400 Diastolic blood pressure 81 mm[Hg] Dr. Steffen Eisenberg MD Work Phone: [facility] 04-20-2025 14:13-0400 Systolic blood pressure 116 mm[Hg] Dr. Steffen Eisenberg MD Work Phone: [facility] 04-19-2025 10:29-0400 Heart rate 115 /min Dr. Steffen Eisenberg MD Work Phone: [facility] 04-19-2025 10:29-0400 SaO2% (BldA) [Mass fraction] 96 % Dr. Steffen Eisenberg MD Work Phone: [facility] 04-19-2025 10:03-0400 Body height 157.[address] Steffen Eisenberg MD Work Phone: [facility] 04-19-2025 10:03-0400 Body mass index (BMI) [Ratio] 49.2 kg/m2 Dr. Steffen Eisenberg MD Work Phone: [facility] 04-19-2025 10:03-0400 Body weight 122.[address] Steffen Eisenberg MD Work Phone: [facility] 04-19-2025 09:57-0400 Body temperature 98.4 [degF] Dr. Steffen Eisenberg MD Work Phone: [facility] 04-19-2025 09:57-0400 Respiratory rate 20 /min Dr. Steffen Eisenberg MD Work Phone: [facility] 04-19-2025 09:56-0400 Diastolic blood pressure 80 mm[Hg] Dr. Steffen Eisenberg MD Work Phone: [facility] 04-19-2025 09:56-0400 Systolic blood pressure 132 mm[Hg] Dr. Steffen Eisenberg MD Work Phone: [facility] 04-07-2025 10:00-0400 Body height 157.[address] Steffen Eisenberg MD Work Phone: [facility] 04-07-2025 10:00-0400 Body mass index (BMI) [Ratio] 49 kg/m2 Dr. Steffen Eisenberg MD Work Phone: [facility] 04-07-2025 10:00-0400 Body weight 121.[address] Steffen Eisenberg MD Work Phone: [facility] 04-07-2025 10:00-0400 Diastolic blood pressure 80 mm[Hg] Dr. Steffen Eisenberg MD Work Phone: [facility] 04-07-2025 10:00-0400 Systolic blood pressure 119 mm[Hg] Dr. Steffen Eisenberg MD Work Phone: [facility] 03-26-2025 14:17-0400 Body height 157.[address] Steffen Eisenberg MD Work Phone: [facility] 03-26-2025 14:15-0400 Body mass index (BMI) [Ratio] 48.9 kg/m2 Dr. Steffen Eisenberg MD Work Phone: [facility] 03-26-2025 14:15-0400 Body weight 121.[address] Steffen Eisenberg MD Work Phone: [facility] 03-26-2025 14:15-0400 Diastolic blood pressure 82 mm[Hg] Dr. Steffen Eisenberg MD Work Phone: [facility] 03-26-2025 14:15-0400 Systolic blood pressure 131 mm[Hg] Dr. Steffen Eisenberg MD Work Phone: [facility] 03-10-2025 14:28-0400 Body height 157.[address] Steffen Eisenberg MD Work Phone: [facility] 03-10-2025 14:24-0400 Body mass index (BMI) [Ratio] 48.5 kg/m2 Dr. Steffen Eisenberg MD Work Phone: [facility] 03-10-2025 14:24-0400 Body weight 120.[address] Steffen Eisenberg MD Work Phone: [facility] 03-10-2025 14:24-0400 Diastolic blood pressure 76 mm[Hg] Dr. Steffen Eisenberg MD Work Phone: [facility] 03-10-2025 14:24-0400 Systolic blood pressure 110 mm[Hg] Dr. Steffen Eisenberg MD Work Phone: [facility] 02-26-2025 08:45-0400 Body height 157.[address] Steffen Eisenberg MD Work Phone: [facility] 02-26-2025 08:45-0400 Body mass index (BMI) [Ratio] 48.3 kg/m2 Dr. Steffen Eisenberg MD Work Phone: [facility] 02-26-2025 08:45-0400 Body weight 119.[address] Steffen Eisenberg MD Work Phone: [facility] 02-26-2025 08:45-0400 Diastolic blood pressure 66 mm[Hg] Dr. Steffen Eisenberg MD Work Phone: [facility] 02-26-2025 08:45-0400 Systolic blood pressure 102 mm[Hg] Dr. Steffen Eisenberg MD Work Phone: [facility] 01-29-2025 10:30-0400 Body mass index (BMI) [Ratio] 47.7 kg/m2 Dr. Steffen Eisenberg MD Work Phone: [facility] 01-29-2025 10:30-0400 Body weight 118.[address] Steffen Eisenberg MD Work Phone: [facility] 01-29-2025 10:30-0400 Diastolic blood pressure 81 mm[Hg] Dr. Steffen Eisenberg MD Work Phone: [facility] 01-29-2025 10:30-0400 Systolic blood pressure 114 mm[Hg] Dr. Steffen Eisenberg MD Work Phone: [facility] 01-01-2025 10:10-0400 Body mass index (BMI) [Ratio] 47.9 kg/m2 Dr. Steffen Eisenberg MD Work Phone: [facility] 01-01-2025 10:10-0400 Body weight 118.[address] Steffen Eisenberg MD Work Phone: [facility] 01-01-2025 10:10-0400 Diastolic blood pressure 82 mm[Hg] Dr. Steffen Eisenberg MD Work Phone: [facility] 01-01-2025 10:10-0400 Systolic blood pressure 125 mm[Hg] Dr. Steffen Eisenberg MD Work Phone: [facility] 12-03-2024 13:32-0500 Body mass index (BMI) [Ratio] 47.9 kg/m2 Dr. Steffen Eisenberg MD Work Phone: [facility] 12-03-2024 13:32-0500 Body weight 119.[address] Steffen Eisenberg MD Work Phone: [facility] 12-03-2024 13:32-0500 Diastolic blood pressure 82 mm[Hg] Dr. Steffen Eisenberg MD Work Phone: [facility] 12-03-2024 13:32-0500 Systolic blood pressure 120 mm[Hg] Dr. Steffen Eisenberg MD Work Phone: [facility] 11-10-2024 22:23-0500 Body temperature 98.2 [degF] Dr. Steffen Eisenberg MD Work Phone: [facility] 11-10-2024 22:23-0500 Diastolic blood pressure 97 mm[Hg] Dr. Steffen Eisenberg MD Work Phone: [facility] 11-10-2024 22:23-0500 Heart rate 115 /min Dr. Steffen Eisenberg MD Work Phone: [facility] 11-10-2024 22:23-0500 Respiratory rate 18 /min Dr. Steffen Eisenberg MD Work Phone: [facility] 11-10-2024 22:23-0500 SaO2% (BldA) [Mass fraction] 99 % Dr. Steffen Eisenberg MD Work Phone: [facility] 11-10-2024 22:23-0500 Systolic blood pressure 139 mm[Hg] Dr. Steffen Eisenberg MD Work Phone: [facility] 11-10-2024 18:31-0500 Body mass index (BMI) [Ratio] 47.4 kg/m2 Dr. Steffen Eisenberg MD Work Phone: [facility] 11-10-2024 18:31-0500 Body weight 117.[address] Steffen Eisenberg MD Work Phone: [facility] 11-05-2024 14:27-0500 Body mass index (BMI) [Ratio] 47.5 kg/m2 Dr. Steffen Eisenberg MD Work Phone: [facility] 11-05-2024 14:27-0500 Body weight 117.[address] Steffen Eisenberg MD Work Phone: [facility] 11-05-2024 14:27-0500 Diastolic blood pressure 89 mm[Hg] Dr. Steffen Eisenberg MD Work Phone: [facility] 11-05-2024 14:27-0500 Systolic blood pressure 125 mm[Hg] Dr. Steffen Eisenberg MD Work Phone: [facility] 01-12-2024 11:02-0400 Body temperature 97.9 [degF] Gina Sahu APRN.LOCKER ATTENDANT Work Phone: [facility] 01-12-2024 11:02-0400 Body weight 120.3 kg Gina Sahu APRN.LOCKER ATTENDANT Work Phone: [facility] 01-12-2024 11:02-0400 Diastolic blood pressure 78 mm[Hg] Gina Sahu APRN.LOCKER ATTENDANT Work Phone: [facility] 01-12-2024 11:02-0400 Heart rate 134 /min Gina Sahu APRN.LOCKER ATTENDANT Work Phone: [facility] 01-12-2024 11:02-0400 Respiratory rate 20 /min Gina Sahu APRN.LOCKER ATTENDANT Work Phone: [facility] 01-12-2024 11:02-0400 SaO2% (BldA) [Mass fraction] 100 % Gina Sahu APRN.LOCKER ATTENDANT Work Phone: [facility] 01-12-2024 11:02-0400 Systolic blood pressure 118 mm[Hg] Gina Sahu APRN.CNP Work Phone: [facility] 11-04-2023 11:53-0500 Body height 157.48 cm [facility]04[facility]2023 11:53-0500 Body mass index (BMI) [Ratio] 48.1 kg/m2 MARTA [facility] 11-04-2023 11:53-0500 Body weight 119.4 kg MARTA [facility] 11-04-2023 11:53-0500 Diastolic blood pressure 89 mm[Hg] [facility] 11-04-2023 11:53-0500 Systolic blood pressure 125 mm[Hg] [facility] 09-27-2022 09:42-0500 Body height 158.1 cm Marta Del Valle MD Work Phone: [facility] 09-27-2022 09:42-0500 Body mass index (BMI) [Ratio] 42.84 kg/m2 Marta Del Valle MD Work Phone: [facility] 09-27-2022 09:42-0500 Body weight 107.11 kg Marta Del Valle MD Work Phone: [facility] 09-27-2022 09:42-0500 Diastolic blood pressure 72 mm[Hg] Marta Del Valle MD Work Phone: [facility] 09-27-2022 09:42-0500 Heart rate 113 /min Marta Del Valle MD Work Phone: [facility] 09-27-2022 09:42-0500 SaO2% (BldA) [Mass fraction] 99 % Marta Del Valle MD Work Phone: [facility] 09-27-2022 09:42-0500 Systolic blood pressure 114 mm[Hg] Marta Del Valle MD Work Phone: [facility] 09-05-2022 13:25-0500 Body height 157.5 cm Faith Starkey MD Work Phone: [facility] 09-05-2022 13:25-0500 Body mass index (BMI) [Ratio] 42.43 kg/m2 Faith Starkey MD Work Phone: [facility] 09-05-2022 13:25-0500 Body weight 105.23 kg Faith Starkey MD Work Phone: [facility] 09-05-2022 13:25-0500 Diastolic blood pressure 70 mm[Hg] Faith Starkey MD Work Phone: [facility] 09-05-2022 13:25-0500 Systolic blood pressure 124 mm[Hg] Faith Starkey MD Work Phone: [facility] 05-17-2021 13:53-0400 Body height 157.5 cm Faith Starkey MD Work Phone: [facility] 05-17-2021 13:53-0400 Body mass index (BMI) [Ratio] 44.45 kg/m2 Faith Starkey MD Work Phone: [facility] 05-17-2021 13:53-0400 Body weight 110.22 kg Faith Starkey MD Work Phone: [facility] 05-17-2021 13:53-0400 Diastolic blood pressure 78 mm[Hg] Faith Starkey MD Work Phone: [facility] 05-17-2021 13:53-0400 Systolic blood pressure 118 mm[Hg] Faith Starkey MD Work Phone: [facility] 07-27-2020 10:34-0400 BP Diastolic 88 mm[Hg] Marli Thompson [facility] 07-27-2020 10:34-0400 BP Systolic 132 mm[Hg] Marli Thompson [facility] 07-27-2020 10:32-0400 BMI (Body Mass Index) 41.5 kg/m2 Marli Thompson [facility] 07-27-2020 10:32-0400 Body Temperature 99.19 [degF] Marli Thompson [facility] 07-27-2020 10:32-0400 Body weight 102.92 kg Marli Thompson [facility] 07-27-2020 10:32-0400 Pulse (Heart Rate) 108 /min Marli Thompson [facility] 07-27-2020 10:32-0400 Pulse Oximetry 98 % Marli Thompson [facility] 07-27-2020 10:32-0400 Respiratory Rate 16 /min Marli Thompson [facility] 08-19-2019 10:49-0500 BMI (Body Mass Index) 38.89 kg/m2 Janes [facility] 08-19-2019 10:49-0500 Body Temperature 98.2 [degF] Janes [facility] 08-19-2019 10:49-0500 Body weight 96.44 kg Janes [facility] 08-19-2019 10:49-0500 BP Di[facility] 84 mm[Hg] [facility] 08-19-2019 10:49-0500 BP Systolic 135 mm[Hg] [facility] 08-19-2019 10:49-0500 Height 157.5 [facility] 08-19-2019 10:49-0500 Pulse (Heart Rate) 106 /min [facility] 07-29-2019 13:20-0400 Pulse (Heart Rate) 86 /min [facility] 07-29-2019 13:20-0400 Pulse Oximetry 98 % [facility] 07-29-2019 10:27-0400 BMI (Body Mass Index) 39.32 kg/m2 [facility] 07-29-2019 10:27-0400 Body Temperature 97.81 [degF] [facility] 07-29-2019 10:27-0400 Body weight 97.52 kg [facility] 07-29-2019 10:27-0400 BP Diastolic 77 mm[Hg] [facility] 07-29-2019 10:27-0400 BP Systolic 126 mm[Hg] Robert Peterson [facility] 07-29-2019 10:27-0400 Height 157.5 cm Robert Peterson [facility] 07-29-2019 10:27-0400 Respiratory Rate 18 /min Robert Peterson [facility] 03-18-2019 23:29-0400 Body Temperature 98.91 [degF] Laurent [facility] 03-18-2019 23:29-0400 BP Diastolic 89 mm[Hg] Laurent [facility] 03-18-2019 23:29-0400 BP Systolic 149 mm[Hg] Laurent [facility] 03-18-2019 23:29-0400 Pulse (Heart Rate) 105 /min Laurent [facility] 03-18-2019 23:29-0400 Pulse Oximetry 100 % Laurent [facility] 03-18-2019 23:29-0400 Respiratory Rate 16 /min [facility] 03-18-2019 23:27-0400 BMI (Body Mass Index) 43.46 kg/m2 Laurent [facility] 03-18-2019 23:27-0400 Body weight 104.33 kg Laurent [facility] 03-18-2019 23:27-0400 Height 154.9 cm Laurent [facility] 02-18-2019 10:46-0400 BMI (Body Mass Index) 42.54 kg/m2 Janes Gutiérrez [facility] 02-18-2019 10:46-0400 Body Temperature 98.4 [degF] Janes Gutiérrez [facility] 02-18-2019 10:46-0400 Body weight 105.51 kg Janes Gutiérrez [facility] 02-18-2019 10:46-0400 BP Diastolic 96 mm[Hg] Janes Gutiérrez [facility] 02-18-2019 10:46-0400 BP Systolic 143 mm[Hg] Janes Gutiérrez [facility] 02-18-2019 10:46-0400 Height 157.5 cm Janes Gutiérrez [facility] 02-18-2019 10:46-0400 Pulse (Heart Rate) 109 /min Janes Gutiérrez [facility] 08-20-2018 08:52-0500 BMI (Body Mass Index) 41.77 kg/m2 Janes Gutiérrez [facility] 08-20-2018 08:52-0500 Body Temperature 98.1 [degF] Janes Gutiérrez [facility] 08-20-2018 08:52-0500 BP Diastolic 86 mm[Hg] Janes Gutiérrez [facility] 08-20-2018 08:52-0500 BP Systolic 120 mm[Hg] Janes Gutiérrez [facility] 08-20-2018 08:52-0500 Height 157.5 cm Janes Gutiérrez [facility] 08-20-2018 08:52-0500 Pulse (Heart Rate) 118 /min Janes Gutiérrez [facility] 08-20-2018 08:52-0500 Weight 103.6 kg Janes Gutiérrez [facility] Encounters Encounter Date Encounter Type Care Provider Facility Start: 05-10-2025 End: 05-10-2025 ambulatory EDEL Beck [facility] Start: 05-06-2025 End: 05-06-[address] Edel Bullock DO [facility] Work Phone: Start: 05-06-2025 End: 05-06-[address] Steffen Eisenberg MD Work Phone: -[facility] Start: 05-06-2025 End: 05-06-2025 ambulatory EDEL R [facility] Start: 05-03-2025 End: 05-03-2025 ambulatory SAAD MIRNA [facility] Start: 04-29-2025 End: 04-29-2025 ambulatory [facility] Kiran [facility] Start: 04-28-2025 End: 04-28-[address] Steffen Eisenberg MD Work Phone: -[facility] Start: 04-28-2025 End: 04-28-[address] Edel Bullock DO -[facility] Work Phone: Start: 04-28-2025 End: 04-28-[address] Edel Bullock DO -[facility] Work Phone: Start: 04-28-2025 End: 04-28-[address] Steffen Eisenberg MD Work Phone: [facility] Start: 04-28-2025 End: 04-28-2025 ambulatory Edel Bullock Facility:[facility] Start: 04-26-2025 End: 04-26-2025 ambulatory EDEL ROCK [facility] Start: 04-22-2025 End: 04-22-[address] Steffen Eisenberg MD Work Phone: [facility] Start: 04-22-2025 End: 04-22-[address] Edel Bullock DO -[facility] Work Phone: Start: 04-22-2025 End: 04-22-2025 ambulatory Edel Bullock Facility:[facility] Start: 04-20-2025 End: 04-20-[address] Apple Lao MD -[facility] Work Phone: Start: 04-20-2025 End: 04-20-[address] Steffen Eisenberg MD Work Phone: -[facility] Start: 04-19-2025 ambulatory Kiley Jain Facility :[facility] Start: 04-19-2025 Non-patient / Non-visit Kiley Whaley CNM -[facility] Start: 04-19-2025 End: 04-19-2025 Patient encounter procedure Kiley Jain CN -[facility] Work Phone: Start: 04-19-2025 End: 04-19-[address] Steffen Eisenberg MD Work Phone: [facility] Start: 04-15-2025 End: 04-15-[address] Steffen Eisenberg MD Work Phone: -Ultrasound [facility] Start: 04-15-2025 End: 04-15-[address] Edel Bullock DO -Ultrasound [facility] Work Phone: Start: 04-15-2025 End: 04-15-2025 ambulatory Edel Bullock Facility:[facility] Start: 04-12-2025 End: 04-12-2025 ambulatory NO PRIMARY CARE [facility] Start: 04-08-2025 End: 04-08-2025 ambulatory NO PRIMARY CARE [facility] Start: 04-07-2025 End: 04-07-[address] Steffen Eisenberg MD Work Phone: [facility] Start: 04-07-2025 End: 04-07-[address] Edel Bullock DO [facility] Start: 04-07-2025 End: 04-07-[address] Edel Bullock DO [facility] Work Phone: Start: 04-07-2025 End: 04-07-[address] Steffen Eisenberg MD Work Phone: [facility] Start: 04-07-2025 End: 04-07-2025 ambulatory Edel Bullock Facility:[facility] Start: 03-26-2025 End: 03-26-[address] Edel Bullock DO [facility] Work Phone: Start: 03-26-2025 End: 03-26-[address] Steffen Eisenberg MD Work Phone: [facility] Start: 03-10-2025 End: 03-10-[address] Steffen Eisenberg MD Work Phone: [facility] Work Phone: Start: 03-10-2025 End: 03-10-[address] Edel Bullock DO [facility] Specimen Work Phone: Start: 03-10-2025 End: 03-10-[address] Edel Bullock DO [facility] Work Phone: Start: 03-10-2025 End: 03-10-[address] Steffen Eisenberg MD Work Phone: [facility] Work Phone: Start: 03-10-2025 End: 03-10-2025 ambulatory Steffen Eisenberg Facility:[facility] Start: 03-05-2025 End: 03-05-[address] Steffen Eisenberg MD Work Phone: [facility] Work Phone: Start: 03-05-2025 End: 03-05-2025 Patient encounter procedure Kiley SEGURAM -Laboratory Work Phone: Start: 03-05-2025 End: 03-05-2025 ambulatory Steffen Traorelay Facility:[facility] Start: 02-26-2025 End: 02-26-[address] Apple Lao MD -[facility] Work Phone: Start: 02-26-2025 End: 02-26-[address] Steffen Eisenberg MD Work Phone: [facility] Work Phone: Start: 02-26-2025 End: 02-26-2025 ambulatory Steffen Eisenberg Facility:[facility] Start: 02-23-2025 End: 02-23-2025 ambulatory OSMANI Stallings [facility] Start: 01-29-2025 End: 01-29-[address] Edel Bullock DO -[facility] Work Phone: Start: 01-29-2025 End: 01-29-2025 ambulatory Steffen Eisenberg Facility:[facility] Start: 01-28-2025 End: 01-28-2025 ambulatory OSMANI Stallings [facility] Start: 01-01-2025 End: 01-01-[address] Apple Lao MD -[facility] Work Phone: Start: 01-01-2025 End: 01-01-2025 ambulatory Steffen Faina Facility:[facility] Start: 12-28-2024 End: 12-28-2024 ambulatory MD ZAIDI [facility]IMARY [facility] Start: 12-03-2024 End: 12-03-[address] Edel Bullock DO -[facility] Work Phone: Start: 12-03-2024 End: 12-03-2024 ambulatory Steffen Stanford Facility:[facility] Start: 11-10-2024 End: 11-10-2024 Emergency department patient visit Dr. Ld Fermin MD -Emergency Department Work Phone: Start: 11-05-2024 Encounter for genera l adult medical examination without abnormal findings Steffen Stanford [facility] Start: 11-05-2024 End: 11-05-[address] Edel Bullock DO -[facility] Work Phone: Start: 11-05-2024 End: 11-05-2024 ambulatory Steffen Stanford Facility:[facility] Start: 11-03-2024 End: 11-03-2024 ambulatory Facility:[facility] Start: 11-03-2024 End: 11-03-2024 Telemedicine consultation with patient Demarcus HOLDERTayo Work Phone: Telemedicine Comment on above: Viral URI with cough (Primary Dx) Start: 11-03-2024 End: 11-04-2024 ambulatory Steffen Stanford Facility:[facility] Start: 10-23-2024 End: 10-23-2024 ambulatory Steffen Stanford Facility:[facility] Start: 10-15-2024 End: 10-15-2024 ambulatory Steffen Faina Facility:[facility] Start: 10-09-2024 End: 10-09-2024 ambulatory Steffen Stanford Facility:[facility] Start: 10-09-2024 End: 10-09-2024 ambulatory Kiley Jain Facility:[facility] Start: 10-02-2024 ambulatory Aida Shields Facility :[facility] Start: 10-02-2024 End: 10-02-2024 Subsequent hospital visit by physician Tucker [facility] Comment on above: Encounter for pregna ncy test, result positive ([facility]-HCC) Start: 10-02-2024 End: 10-02-2024 ambulatory [facility] Start: 09-25-2024 End: 09-25-2024 Subsequent hospital visit by physician Tucker Jimenez 2 [facility] Comment on above: Encounter for pregna ncy test, result positive ([facility]) Start: 09-25-2024 End: 09-25-2024 ambulatory [facility] Start: 09-15-2024 End: 09-15-2024 ambulatory [facility] Start: 09-11-2024 End: 09-11-2024 ambulatory [facility] Start: 09-09-2024 End: 09-09-2024 ambulatory [facility] Start: 09-04-2024 End: 09-04-2024 ambulatory [facility] Start: 08-25-2024 End: 08-25-2024 ambulatory [facility] Start: 08-21-2024 End: 08-21-2024 Subsequent hospital visit by physician Tucker Jimenez 1 [facility] Comment on above: Encounter for assist ed reproductive fertility procedure cycle Start: 08-21-2024 End: 08-21-2024 ambulatory [facility] Start: 08-14-2024 End: 08-14-2024 Subsequent hospital visit by physician Tucker Jimenez 2 [facility] Comment on above: Encounter for assist ed reproductive fertility procedure cycle Start: 08-14-2024 End: 08-14-2024 ambulatory [facility] Start: 08-04-2024 End: 08-04-2024 ambulatory No Primary Care Physician Facility:[facility] Start: 07-29-2024 End: 07-29-2024 Refill Marta Del Valle MD Work Phone: [facility] Start: 07-20-2024 End: 07-20-2024 ambulatory No Primary Care Physician Facility:[facility] Start: 06-24-2024 End: 06-24-2024 Subsequent hospital visit by physician Tucker Jimenez 2 [facility] Comment on above: Encounter for assist ed reproductive fertility procedure cycle Start: 06-24-2024 End: 06-24-2024 ambulatory [facility] Start: 06-22-2024 End: 06-22-2024 Subsequent hospital visit by physician [facility]tras[facility] Comment on above: Encounter for assist ed reproductive fertility procedure cycle Start: 06-22-2024 End: 06-22-2024 ambulatory [facility] Start: 06-19-2024 End: 06-19-2024 Subsequent hospital visit by physician Tucker Ultrasound [facility] Comment on above: Encounter for assist ed reproductive fertility procedure cycle Start: 06-19-2024 End: 06-19-2024 ambulatory [facility] Start: 06-15-2024 End: 06-15-2024 Subsequent hospital visit by physician Tucker Ultrasound [facility] Comment on above: Encounter for assist ed reproductive fertility procedure cycle Start: 06-15-2024 End: 06-15-2024 ambulatory [facility] Start: 05-27-2024 End: 05-27-2024 ambulatory No Primary Care Physician Facility:[facility] Start: 01-12-2024 End: 01-12-2024 ambulatory Facility:[facility] Start: 01-12-2024 End: 01-12-2024 Patient encounter procedure Gina Sahu APRN.CNP Work Phone: [facility] Comment on above: URI, acute (Primary Dx); Acute otitis media, right; Acute cough Start: 12-09-2023 Non-patient / Non-visit MARTA PRICE [facility] Start: 12-09-2023 End: 12-09-2023 [facility] Start: 12-09-2023 End: 12-09-2023 Patient encounter procedure MARTA JOSH [facility], [facility] Work Phone: Start: 11-04-2023 End: 11-04-2023 Patient encounter procedure MARTA DEL VALLE [facility] Work Phone: Start: 05-01-2023 Patient encounter status Marta Del Valle MD Work Phone: [facility] Start: 05-01-2023 ambulatory MARTA DEL VALLE Facili ty:[facility] Start: 04-03-2023 ambulatory MARTA DEL VALLE Facili ty:[facility] Start: 01-09-2023 ambulatory MARTA DEL VALLE Facili ty:[facility] Start: 01-09-2023 End: 01-09-2023 Subsequent hospital visit by physician Lawrence Young MD Work Phone: Mammography Outpatient [facility] Comment on above: Arrived Start: 12-19-2022 ambulatory SELF SELF Facility:[facility] Start: 09-27-2022 ambulatory SELF SELF Facility:[facility] Start: 09-27-2022 Encounter for genera l adult medical examination without abnormal findings MARTA DEL VALLE Facility:[facility] Start: 09-27-2022 End: 09-27-2022 Patient encounter status [...] full remission Start: 09-05-2022 ambulatory SELF SELF Facility:[facility] Start: 09-05-2022 Encounter for gynecological examination (general) (routine) without abnormal findings FAITH STARKEY Facility:[facility] Start: 09-05-2022 End: 09-05-2022 Patient encounter procedure Faith Starkey MD Work Phone: [facility] Start: 09-05-2022 End: 09-05-2022 Periodic preventive med est patient 18-39 yrs Faith Starkey MD Work Phone: [facility] Comment on above: Well woman exam with routine gynecological exam (Primary Dx) Start: 08-10-2022 ambulatory MARTA DEL VALLE [facility] ty:[facility] Start: 10-03-2021 End: 10-07-2021 ambulatory [facility] Start: 09-27-2021 Patient encounter status Radha Starkey MD Work Phone: [facility] Start: 09-15-2021 End: 09-16-2021 ambulatory [facility] Start: 05-17-2021 End: 05-17-2021 Subsequent care visit Faith Starkey MD Work Phone: [facility] Comment on above: Supervision of mirna nair first , antepartum (Primary Dx) Start: 08-23-2020 End: 08-23-2020 Patient encounter procedure WILL PRABHAKAR [facility] Start: 08-23-2020 End: 08-23-2020 Office outpatient new 30 minutes Will Prabhakar Work Phone: [facility] Comment on above: Acne vulgaris (Prima ry Dx); Dermal nevus of abdominal wall Start: 07-27-2020 End: 07-27-2020 Patient encounter procedure MARTA DEL VALLE [facility] Start: 07-27-2020 End: 07-27-2020 Office outpatient new 30 minutes Marli Thompson Work Phone: [facility] Comment on above: Close Exposure to Co vid-19 Virus (Primary Dx); Generalized body aches; Diarrhea, unspecified type Start: 08-19-2019 End: 08-19-2019 Office outpatient visit 15 minutes Zando Work Phone: [facility] Comment on above: Leukocytosis, unspec ified type (Primary Dx) Start: 07-29-2019 End: 07-29-2019 Emergency department patient visit Robert Peterson Work Phone: [facility] Department Comment on above: Epigastric pain (Cristy hector Dx) Start: 05-09-2019 End: 05-09-2019 Refill Marta Del Valle Work Phone: [facility] General Internal Medicine [facility] Start: 03-19-2019 Follow-up encounter Marta queen Work Phone: [facility] General Internal Medicine [facility] Comment on above: RE: Follow up from E R Visit Start: 03-19-2019 End: 03-19-2019 Patient encounter procedure Marta Del Valle Work Phone: [facility] Start: 03-18-2019 End: 03-19-2019 Emergency department patient visit Laurent Duque Work Phone: [facility] Comment on above: Abdominal pain, unsp ecified abdominal location (Primary Dx); Chest pain, unspecified type; Leukocytosis, unspecified type Start: 03-18-2019 End: 03-18-2019 Patient encounter procedure Marta Del Valle Work Phone: [facility] Start: 02-18-2019 End: 01-22-2020 Office outpatient visit 15 minutes Zando Work Phone: [facility] Comment on above: Leukocytosis, unspec ified type (Primary Dx) Start: 08-20-2018 End: 08-20-2018 Office outpatient visit 15 minutes [employer] Work Phone: [facility] Comment on above: Leukocytosis, unspec ified type (Primary Dx) Start: 12-09-2013 End: 12-27-2020 Patient encounter status Faith Starkey MD Work Phone: [facility] Start: 12-03-2013 End: 03-03-2014 [facility] Procedures Date Procedure Procedure Detail Performing [...] Work Phone: Comment on above: Performed at: [place] [id number] Director: Huan Kuhn PhD, Phone: [phone] Start: 03-10-2025 Gram stain microscopy D tapan [...] 2) Zoste r Vaccines (1 of 2) [facility] Start: 05-03-2031 DTaP/Tdap/Td Vaccine s (3 - Td or Tdap) DTaP/Tdap/Td Vaccines (3 - Td or Tdap) [facility] Start: 05-03-2031 Tetanus vaccination TETANUS [facility] Start: 05-03-2031 Urine microalbumin profile DTaP,Tdap,Td Vaccine (3 - Td or Tdap) [facility] Start: 08-27-2027 Tetanus vaccination [facility] Start: 09-05-2025 Screening for malign ant neoplasm of cervix [facility] Start: 05-12-2025 ambulatory Ambulatory Facility:[facility] Start: 04-19-2025 Nonstress test [facility] Start: 04-19-2025 Obstetric monitoring [facility] Start: 04-19-2025 [facility] Start: 04-19-2025 Vital signs measurements [facility] Start: 04-19-2025 Ultrasonography for biophysical profile without non-stress testing OB Biophysical Prof W/O NST [facility] Start: 04-07-2025 Comprehensive metabo lic 2000 panel - Serum or Plasma [facility] Start: 04-07-2025 Procedure [facility] Start: 03-10-2025 Source specific culture Genital Cult ure [facility] Start: 03-10-2025 Source specific culture [facility] Start: 02-26-2025 CBC W Auto Different ial panel - Blood [facility] Start: 02-26-2025 Measurement of gluco se 2 hours after glucose challenge for glucose tolerance test [facility] Start: 02-26-2025 Serologic test for syphilis [facility] Start: 02-26-2025 [facility] Start: 11-10-2024 End: 11-10-2024 [facility] Start: 10-02-2024 End: 10-02-2024 Patient encounter procedure 10/02/2024 9:15 AM EST Appointment [address] [phone] [facility] Start: 08-25-2024 End: 08-25-2024 Patient encounter procedure 08/25/2024 8:30 AM EST Appointment [address] [phone] [facility] Start: 08-21-2024 End: 08-21-2024 Patient encounter procedure 08/21/2024 7:45 AM EST Appointment [address] [phone] [facility] Start: 06-24-2024 End: 06-24-2024 Patient encounter procedure 06/24/2024 7:30 AM EDT Appointment [facility] [address] [place] [phone] [facility] Start: 06-22-2024 End: 06-22-2024 Patient encounter procedure 06/22/2024 7:45 AM EDT Appointment [facility] [address] [place] [phone] [facility] Start: 06-19-2024 End: 06-19-2024 Patient encounter procedure 06/19/2024 7:45 AM EDT Appointment [facility] [address] [place] [phone] [facility] Start: 05-31-2024 COVID-19 Vaccine ( season) COVID-19 Vaccine () [facility] Start: 05-31-2024 COVID-19 VACCINE () COVID-19 VACCINE () [facility] Start: 05-31-2024 COVID-19 Vaccine ( season) COVID-19 Vaccine () [facility] Start: 05-31-2024 Influenza vaccination [facility] Start: 05-01-2024 PREVENTATIVE HEALTH VISIT PREV ENTATIVE HEALTH VISIT [facility] Start: 09-30-2023 Behavioral Health Screening Behavioral Health Screening [facility] Start: 09-27-2023 End: 09-27-2023 Patient encounter procedure 09/27/2023 Office Visit [employer]ES MANAGER Faith Starkey MD [address] [place] [address] [place] [address] Obstetrics and [facility]necology [facility] [place] Start: 09-27-2023 PREVENTATIVE HEALTH VISIT PREV ENTATIVE HEALTH VISIT [facility] Start: 09-05-2023 PREVENTATIVE HEALTH VISIT PREV ENTATIVE HEALTH VISIT [facility] Start: 05-31-2023 Covid-19 Vaccine ( season) Covid-19 Vaccine (2022- season) [facility] Start: 05-01-2023 End: 05-01-2023 Patient encounter procedure 05/01/2023 Office Visit General Medicine Marta Del Valle MD [address] [place] [phone] Primary Care Outpatient [facility] Start: 09-27-2022 End: 09-27-2022 Patient encounter procedure 09/27/2022 Office Visit General Medicine Marta Del Valle MD [address] [place] [address], [place] [address] Primary Care Outpatient [facility] Start: 09-02-2022 Microscopic observat ion [Identifier] in Cervix by Cyto stain PAP SMEAR [facility] Start: 09-02-2022 Screening for malign ant neoplasm of cervix PAP SMEAR [facility] Start: 05-31-2022 Influenza vaccination INFLUENZA VACC INE (#1) [facility] Start: 09-28-2021 PREVENTATIVE HEALTH VISIT PREV ENTATIVE HEALTH VISIT [facility] Start: 09-27-2021 End: 09-27-2021 Patient encounter procedure 09/27/2021 Office Visit General Medicine Marta Del Valle MD [address] [place] [address], [place] [address] Primary Care Outpatient [facility] Start: 08-29-2021 End: 08-29-2021 Office Visit 08/29/2021 Office Visit Dermatology SrinivasWill MD [address] [place] [address] [phone] [facility] Start: 06-21-2021 End: 06-21-2021 Follow-up encounter 06/21/2021 Follow Up Visit COMM[employer]CIAL [employer]ES MANAGER Faith Starkey MD [address] [place] [phone] Obstetrics, Gynecology and Midwifery [facility] [place] Start: 06-07-2021 End: 06-07-2021 Follow-up encounter 06/07/2021 Follow Up Visit Maternal Medicine [facility] [place] Start: 05-31-2021 Influenza vaccination INFLUENZA VACC INE (#1) [facility] Start: 05-31-2021 End: 05-31-2021 Follow-up encounter 05/31/2021 Follow Up Visit [place] [address] [place] [phone] Obstetrics, Gynecology and Midwifery [facility] [place] Start: 05-22-2021 End: 05-22-2021 ambulatory 05/22/2021 Rehab Services Visit Sports Medicine and Rehabilitation Faith Starkey MD [address] [phone] Tere Cross, PT [address] [place] [address] Sports Medicine [facility] [place] Start: 04-01-2021 COVID-19 VACCINE (3 - Booster for Pfizer series) COVID-19 VACCINE (3 - Booster for Pfizer series) [facility] Start: 03-29-2021 Influenza vaccinatio n given Sequential Influenza Vaccine (#1) [facility] Comment on above: Postponed from 05/31 (Patient Refused) Start: 08-23-2020 End: 08-23-2020 Office Visit 08/23/2020 Office Visit Dermatology SrinivasWill MD [address] [place] [address] [phone] [facility] Start: 2019 Screening for malign ant neoplasm of cervix HPV Testing [facility] Start: 09-02-2019 End: 09-02-2019 Office Visit 09/02/2019 Office Visit COMMERCIAL LINES MANAGER Faith Starkey MD [address] [facility] [address] [place] [phone] COMMERCIAL LINES MANAGER [facility] Start: 08-19-2019 End: 08-19-2019 Office Visit 08/19/2019 Office Visit Oncology Janes Gutiérrez MD [address] [facility] [address] [place] [address] [phone] [facility] Start: 05-31-2019 Influenza vaccination INFLUENZA VACC INE (#1) [facility] Start: 05-31-2019 Influenza vaccinatio n given [facility] Start: 05-08-2019 Microscopic observat ion Cyto stain Nom (Cvx) PAP SMEAR [facility] Start: 05-08-2019 Screening for malign ant neoplasm of cervix PAP SMEAR [facility] Start: 02-18-2019 End: 02-18-2019 Ambulatory 02/18/2019 Office Visit Oncology Janes Gutiérrez MD [address] [facility] [address] [place] [address] [phone] [facility] Start: 02-17-2019 End: 08-21-2019 Complete blood count with white cell differential, manual CBC and Differential Routine Leukocytosis, Unspecified Type Expected: 02/17/2019, Expires: 08/21/2019 [facility] Comment on above: Expected: 02/17/2019 , Expires: 08/21/2019 Start: 05-31-2018 Influenza vaccination SEQUENTI AL INFLUENZA VACCINE (#1) [facility] Start: 01-16-2016 Screening for malign ant neoplasm of cervix Pap Testing [facility] Start: 01-15-2014 Screening for malign ant neoplasm of cervix Cervical Cancer Screening [facility] Start: 2010 Screening for malign ant neoplasm of cervix HPV/Cotest [facility] Start: 2008 Hepatitis B vaccination HEP B VACCINE (1 of 3 - 19+ 3-dose series) [facility] Start: 2008 Hepatitis B Vaccine (1 of 3 - 19+ 3-dose series) Hepatitis B Vaccine (1 of 3 - 19+ 3-dose series) [facility] Start: 2008 Hepatitis B Vaccines (1 of 3 - 19+ 3-dose series) Hepatitis B Vaccines (1 of 3 - 19+ 3-dose series) [facility] Start: 2007 Anxiety Screening Anxiety Screening [facility] Start: 2007 Depression Screening Depression Scre melinda [facility] Start: 2007 Hepatitis C antibody , confirmatory test Hepatitis C Screening [facility] Start: 2007 Hepatitis C screening Hepatitis C Sc reening [facility] Start: 2007 HIV screening HIV Screening [facility] Start: 2004 HIV screening HIV Screening [facility] Start: 2002 Varicella vaccination Varicell a Vaccines (1 of 2 - 13+ 2-dose series) [facility] Start: 2001 Adolescent depressio n screening assessment Depression Screening (PHQ9) [facility] Start: 1992 History and physical examination, annual for health maintenance Wellness Visit [facility] Start: 1990 MMR Vaccines (1 of 1 - Standard series) MMR Vaccines (1 of 1 - Standard series) [facility] Start: 1989 HIV screening HIV Screening [facility] Start: 1989 Lipid panel Lipid Panel [facility] Start: 1989 Screening for malign ant neoplasm of cervix PAP SMEAR [facility] Start: 1989 Yearly Adult Physical Yearly Adult P hysical [facility] Alanine aminotransfe rase [Enzymatic activity/volume] in Serum or Plasma [facility] Albumin [Mass/volume ] in Serum or Plasma [facility] Alkaline phosphatase [Enzymatic activity/volume] in Serum or Plasma [facility] Anion gap in Serum o r Plasma [facility] Bilirubin, total measurement [facility] BUN/Creatinine ratio [facility] Calcium [Mass/volume ] in Serum or Plasma [facility] Carbon dioxide, tota l [Moles/volume] in Central venous blood [facility] Creatinine [Mass/vol ume] in Serum or Plasma [facility] Cytology Cervical or vaginal smear or scraping study 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, 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 Cytology Routine Well woman exam with routine gynecological exam 09/05/2022 3:07 PM [facility] Erythrocyte mean corpuscular volume determination [facility] Glucose [Mass/volume ] in Serum or Plasma [facility] Hematocrit [Volume Fraction] of Blood [facility] Hemoglobin [Mass/vol ume] in Blood [facility] Leukocytes [#/volume ] in Blood [facility] Mean corpuscular hemoglobin concentration determination [facility] Mean corpuscular hemoglobin determination [facility] Measurement of renal function [facility] Neutrophil count [facility] Neutrophil percent differential count [facility] Patient Education ED About Arrhythmias Bl [facility] Services Work Phone: Patient referral [facility] Work Phone: Platelets [#/volume] in Blood [facility] Potassium measurement [facility] Red blood cell count [facility] Red cell distributio n width determination [facility] End: 06-19-2024 GERRY US Pelvis Limited Follicles - Follicle Studies Performed [facility] Work Phone: Comment on above: Once for 1 Occurrenc es starting 06/19/2024 until 06/19/2024 End: 06-22-2024 GERRY US Pelvis Limited Follicles - Follicle Studies Performed [facility] Work Phone: Comment on above: Once for 1 Occurrenc es starting 06/22/2024 until 06/22/2024 End: 06-24-2024 GERRY US Pelvis Limited Follicles - Follicle Studies Performed [facility] Work Phone: Comment on above: Once for 1 Occurrenc es starting 06/24/2024 until 06/24/2024 Serum chloride measurement [facility] Sodium measurement [facility] Streptococcus agalac tiae [Presence] in Unspecified specimen by Organism specific culture [facility] Total protein measurement [facility] Urea nitrogen [Mass/volume] in Serum or Plasma [facility] End: 08-14-2024 US Pelvis transvaginal [facility] Service Area Work Phone: Comment on above: Once for 1 Occurrenc es starting 08/14/2024 until 08/14/2024 End: 08-21-2024 US Pelvis transvaginal [facility] Service Area Work Phone: Comment on above: Once for 1 Occurrenc es starting 08/21/2024 until 08/21/2024 End: 06-19-2024 US Pelvis transvaginal [facility] Service Area Work Phone: Comment on above: Once for 1 Occurrenc es starting 06/19/2024 until 06/19/2024 End: 06-22-2024 US Pelvis transvaginal [facility] Service Area Work Phone: Comment on above: Once for 1 Occurrenc es starting 06/22/2024 until 06/22/2024 End: 06-24-2024 US Pelvis transvaginal [facility] Service Area Work Phone: Comment on above: Once for 1 Occurrenc es starting 06/24/2024 until 06/24/2024 [facility] Immunizations Immunization Date Immunization Notes Care Provider Audrey [facility]3]holley 03-10-2025 tetanus toxoid, redu mason diphtheria toxoid, and acellular pertussis vaccine, adsorbed Dr. Steffen Eisenberg MD Work Phone: [facility] 09-27-2022 influenza, injectabl e, quadrivalent, preservative free Marta Del Valle MD Work Phone: [facility] 09-27-2022 influenza quad vacci ne 0.5 ML Suspension Prefilled Syringe Marta Del Valle MD Work Phone: [facility] 09-27-2022 influenza virus vacc ine, unspecified formulation Gina Sahu APRN.CNP Work Phone: [facility] 06-21-2021 influenza, injectabl e, quadrivalent, preservative free Faith Starkey MD Work Phone: [facility] 06-21-2021 influenza virus vacc ine, unspecified formulation Faith Starkey MD Work Phone: [facility] 05-03-2021 tetanus toxoid, redu mason diphtheria toxoid, and acellular pertussis vaccine, adsorbed Faith Starkey MD Work Phone: [facility] 02-04-2021 Covid (Pfizer) Dr. Steffen chao MD Work Phone: [facility] 01-14-2021 Covid (Pfizer) Dr. Steffen chao MD Work Phone: [facility] 09-07-2020 Influenza, injectabl e, Madin [place] Canine Kidney, preservative free, quadrivalent Dr. Steffen Eisenberg MD Work Phone: [facility] 07-23-2019 influenza, injectabl e, quadrivalent, preservative free Faith Starkey MD Work Phone: [facility] 07-23-2019 influenza virus vacc ine, unspecified formulation Faith Starkey MD Work Phone: [facility] 07-31-2018 influenza, injectabl e, quadrivalent, contains preservative [facility] 07-31-2018 influenza, injectabl e, quadrivalent, preservative free Dr. Steffen Eisenberg MD Work Phone: [facility] 07-31-2018 influenza virus vacc ine, unspecified formulation [facility] 08-27-2017 tetanus toxoid, redu mason diphtheria toxoid, and acellular pertussis vaccine, adsorbed [facility] 11-15-2016 Human Papillomavirus 9-valent vaccine [facility] 06-18-2016 Human Papillomavirus 9-valent vaccine [facility] 05-08-2016 Human Papillomavirus 9-valent vaccine [facility] 09-20-2015 influenza virus vacc ine, whole virus [facility] 09-20-2015 influenza, injectabl e, quadrivalent, preservative free Dr. Steffen Eisenberg MD Work Phone: [facility] 08-18-2014 influenza virus vacc ine, whole virus [facility] 08-18-2014 influenza, injectabl e, quadrivalent, preservative free Dr. Steffen Eisenberg MD Work Phone: [facility] 08-30-2013 influenza virus vacc ine, unspecified formulation Marta [facility] Payers Date Payer Category Payer Blue [employer] Blue [employer] ld Managed Care [facility] [id number] 2024 Unknown [id number] 2024 Self-pay 2023 Managed Care (Private) [facility] [id number]. [id number] 2022 Unknown [id number] 2022 Unknown [id number] 2021 Private Health Insurance 1.2 .840.168200.1.13.172.2. 7.3.252520.315 2021 Unknown [id number] 2021 Unknown [id number] 2017 Unknown [id number] 1.2.840.850074.1.13.172.2. 7.3.097307.315 2017 Unknown [id number] 2017 Unknown [id number] 1.2.840.532554.1.13.385.2. 7.3.622062.315 2014 Unknown [id number] 2003 Unknown 1.2.840.917133. 1.13.159.2. 7.3.302935.315 2003 Unknown [id number] 1989 Unknown [id number] 2.16.840.1.670111.3.579.2. 903 1989 Unknown [id number] 2.16.840.1.244505.3.579.2. 903 1989 Unknown [id number] 2.16.840.1.854345.3.579.2. 902 1989 Unknown [id number] 2.16.840.1.266961.3.579.2. 900 1989 Unknown [id number] 2.16.840.1.336675.3.579.2. 900 1989 Unknown [id number] 2.16.840.1.871984.3.579.2. 594 1989 Unknown [id number] 2.16.840.1.035215.3.579.2. 594 1989 Unknown [id number] 2.16.840.1.856808.3.579.2. 594 1989 Unknown [id number] 2.16.840.1.494208.3.579.2. 594 1989 Unknown [id number] 2.16.840.1.359496.3.579.2. 594 1989 Unknown [id number] 2.16.840.1.700269.3.579.2. 594 1989 Unknown [id number] 2.16.840.1.189238.3.579.2. 594 1989 Unknown [id number] 2.16.840.1.829433.3.579.2. 594 1989 Unknown [id number] 2.16.840.1.383825.3.579.2. 594 1989 Unknown [id number] 2.16.840.1.872434.3.579.2. 594 1989 Unknown [id number] 2.16.840.1.094490.3.579.2. 594 1989 Unknown [id number] 2.16.840.1.896254.3.579.2. 1243 1989 Unknown [id number] 2.16.840.1.781135.3.579.2. 1243 1989 Unknown [id number] 2.16.840.1.527694.3.579.2. 124 1989 Unknown [id number] 2.16.840.1.918463.3.579.2. 124 1989 Unknown [id number] 2.16.840.1.634450.3.579.2. 124 1989 Unknown [id number] 2.16.840.1.180053.3.579.2. 1242 1989 Unknown [id number] 2.16.840.1.068257.3.579.2. 1243 1989 Unknown [id number] 2.16.840.1.285252.3.579.2. 1243 1989 Unknown [id number] 2.16.840.1.643076.3.579.2. 1244 1989 Unknown [id number] 2.16.840.1.169954.3.579.2. 1244 1989 Unknown [id number] 2.16.840.1.279384.3.579.2. 1244 1989 Unknown [id number] 2.16.840.1.025273.3.579.2. 1244 1989 Unknown [id number] 2.16.840.1.304568.3.579.2. 1244 1989 Unknown [id number] 2.16.840.1.577711.3.579.2. 1244 1989 Unknown [id number] 2.16.840.1.255969.3.579.2. 1244 1989 Unknown [id number] 2.16.840.1.471514.3.579.2. 1244 1989 Unknown [id number] 2.16.840.1.953591.3.579.2. 1244 1989 Unknown [id number] 2.16.840.1.597865.3.579.2. 1244 1989 Unknown [id number] 2.16.840.1.753285.3.579.2. 1244 1989 Unknown [id number] 2.16.840.1.907855.3.579.2. 1244 1989 Unknown [id number] 2.16.840.1.745515.3.579.2. 1244 1989 Unknown [id number] 2.16.840.1.631304.3.579.2. 9 1989 Unknown [id number] 2.16.840.1.310477.3.579.2. 1989 Unknown [id number] 2.16.840.1.888788.3.579.2. 479 1989 Unknown [id number] 2.16.840.1.375500.3.579.2. 479 1989 Unknown [id number] 2.16.840.1.156895.3.579.2. 479 1989 Unknown [id number] 2.16840.1.654125.3.579.2 479 1989 Unknown [id number] 2.16.840.1.544000.3.579.2 479 1989 Unknown [id number] 2.840.1.574919.3.579.2 479 1989 Unknown [id number] 2.840.1.092561.3.579.2 479 1989 Unknown [id number] 2.840.1.986727.3.579.2. 479 Unknown [id number] 2.840.1.554447.3.579.2. 462 Unknown [id number] 2.16840.1.078505.3.579.2. 462 Unknown [id number] 2.16840.1.031325.3.579.2. 462 Unknown [id number] 2.16840.1.195155.3.579.2. 462 Unknown [id number] 2.16840.1.522095.3.579.2. 462 Unknown [id number] 2.16840.1.414236.3.579.2. 462 Unknown [id number] 2.16840.1.041766.3.579.2. 462 Unknown [id number] 2.16840.1.397241.3.579.2. 462 Unknown [id number] 2.16840.1.761510.3.579.2. 462 Unknown [id number] 2.16.840.1.911391.3.579.2. 462 Unknown [id number] 2.16.840.1.603033.3.579.2. 462 Unknown [id number] 2.16.840.1.977555.3.579.2. 462 Unknown [id number] 2.16.840.1.323003.3.579.2. 462 Unknown [id number] 2.16.840.1.507521.3.579.2. 462 Unknown [id number] 2.16.840.1.867702.3.579.2. 462 Unknown [id number] 2.16.840.1.007769.3.579.2. 462 Unknown [id number] 2.16.840.1.225219.3.579.2. 462 Unknown [id number] 2.16.840.1.887161.3.579.2. 462 Unknown [id number] 2.16.840.1.123674.3.579.2. 462 Unknown [id number] 2.16.840.1.367992.3.579.2. 462 Unknown [id number] 2.16.840.1.329284.3.579.2. 462 Unknown [id number] 2.16.840.1.630829.3.579.2. 462 Unknown [id number] 2.16.840.1.047231.3.579.2. 462 Unknown [id number] 2.16.840.1.218217.3.579.2. 462 Unknown [id number] 2.16.840.1.635740.3.579.2. 462 Unknown [id number] 2.16.840.1.738002.3.579.2. 462 Unknown [id number] 2.16.840.1.606782.3.579.2. 462 Unknown [id number] 2.16.840.1.980672.3.579.2. 462 Unknown [id number] 2.16.840.1.540248.3.579.2. 462 Unknown [id number] 2.16.840.1.577747.3.579.2. 462 Unknown [id number] 2.16.840.1.638452.3.579.2. 462 Social History Date Type Detail Facility Start: 02-20-2012 End: 08-20-2018 Tobacco smoking status WAIS Never smoker [facility] Start: 1990 Sex Assigned At Not on file [facility] Start: 07-31-2018 End: 11-10-2024 Tobacco smoking status [facility] Former smoker [facility] Start: 10-01-2009 End: 10-01-2010 History of tobacco use Current smoker [facility] Start: 10-01-2009 End: 10-01-2010 History of tobacco use Cigarette Smoker [facility] Start: 07-31-2018 End: 01-12-2024 Cigarettes smoked current (pack per day) - Reported [facility] Start: 12-09-2013 Alcohol Comment 1-2 times per week, up to 2 glasses of wine at a time [facility] Start: 07-29-2019 End: 01-12-2024 Alcohol intake Current drinker of alcohol (finding) [facility] Start: 02-20-2012 End: 08-23-2020 Tobacco use and exposure Never used [facility] Start: 06-05-2024 End: 10-02-2024 Exposure to SARS-CoV-2 (event) Not sure [facility] Exposure to SARS-CoV -2 (event) Yes [facility] Start: 07-31-2018 End: 01-12-2024 Alcohol intake Yes [facility] Start: 05-03-2021 End: 05-01-2023 Alcohol intake Ex-drinker (finding) [facility] Start: 12-09-2013 Alcohol Comment 1-2 times per week, up to 2 glasses of wine at a time [facility] Start: 10-21-2020 [facility] Start: 08-26-2022 End: 09-27-2022 Exposure to SARS-CoV-2 (event) Unable to assess [facility] Start: 11-04-2023 Tobacco smoking stat us NHIS Unknown if ever smoked [facility] Start: 1990 Sex Assigned At Female [facility] Start: 02-20-2012 Alcohol Comment occassional [facility] Depression Score 10 [facility] Gender identity Identifies as fe male gender (finding) [facility] Goals Date Patient Goal Desired Activity /State [...] & Type Note Facility 04-28-2025 Progress note [facility] 04-28-2025 Progress note Note Date/Time April 28, 2025 2:47pm [facility] [address], [address] [place] [address] OFFICE VISIT Date of Service: 04/28/25 MR#: [id number] Acct: [id number] Name: BARBY CABALLERO Rep #: [id number] : 1990 Provider: Dr. Kellen Bullock DO Age/Sex: 34/F [place] 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 [facility] signed today JV- no lof, vaginal bleeding , or dec fm. has growth scans at 34 and 38 weeks. [facility] signed today. 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 Steffen Eisenberg MD Status: REG CLI Study:OB Biophysical Prof W/O NST Date of Exa m: 04/22/25 Exam# [id number] Ordering Dr: Edel Rowley DO PROCEDURE: OB [...] NST IMPRESSION: Normal biophysical profile. Reading Location: [facility] CC: Dr. Steffen Eisenberg MD; Dr. Edel Bullock DO ~ Senior Net Application Developer: Signed [facility]07-22-2025 Progress [facility] Women's [address], [address] [place] [address] OFFICE VISIT Date of Service: 04/20/25 MR#: [id number] Acct: [id number] Name: BARBY CABALLERO Rep #: [id number] : 1990 Provider: Dr. 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 (works from home) History 2 Elective abortions Hx Para 1 Spontaneous abortions Hx # Term Pregnancies 1 Ectopic pregnancies Hx # Pregnancies Multiple births # of living children 1 Past Pregnancies Del. Date Name GA/Weeks Outcome Route Bth Weight Infant Gen Labor Lgth Anesthesia Del Locatn Provider FOB 07/18/21 Larry 40 live - full term 7lbs 7oz Male [facility] [place] Delivery Date: 07/18/21 Last Updated by: [...] growth scans at 34 and 38 weeks. [facility] signed today JV- no lof, vaginal bleeding , or dec fm. has growth scans at 34 and 38 weeks. [facility] signed today. pelvic exam performed [...] Cosigner Signature: Date (if applicable) CC: ~ [facility]07-22-2025 Progress note Author Apple Lao [facility] Note Date/Time April 20, 2025 2:29 pm [facility] [address], [address] [place] [address] OFFICE VISIT Date of Service: 04/20/25 MR#: [id number] Acct: [id number] Name: FEDERICOBARBYVICKI BLAND Rep #: [id number] : 1990 Provider: Dr. 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 (works from home) History 2 Elective abortions Hx Para 1 Spontaneous abortions Hx # Term Pregnancies 1 Ectopic pregnancies Hx # Pregnancies Multiple births # of living children 1 Past Pregnancies Del. Date Name GA/Weeks Outcome Route Bth Weight Infant Gen Labor Lgth Anesthesia Del Locatn Provider FOB 07/18/21 Larry 40 live - full term 7lbs 7oz Male [facility] [place] Delivery Date: 07/18/21 Last Updated by: [...] transfer. declines NIPT had genetic testing at [facility] 11/05/24 -?-?-?-?-?-?-?-?-?-?-?-?- 12w 1d 260 lb [...] growth scans at 34 and 38 weeks. [facility] signed today JV- no lof, vaginal bleeding , or dec fm. has growth scans at 34 and 38 weeks. [facility] signed today. pelvic exam performed [...] Symptoms of Preeclampsia, Infant Feeding No , [place] Education and Family Medical Leave or Disability [...] POC Urinalysis 2 Dip (Clinic) Today 04/20/25 8870 <Electronically signed by Apple brown MD> Date _ Apple Haque Signature: Date (if applicable) CC: ~ [facility] Work Phone: 1(591) 989-687007-17-2025 Radiology Diagnostic study note [facility] Imaging Services [address] [place] [address] OB Biophysical Prof W/O NST MR#: [id number] Acct: [id number] Name: BARBY CABALLERO Rep #: [id number] : 1990 F 34 From: Sloan Padron MD PCP: Dr. Steffen Eisenberg MD Status: REG CLI Study:OB Biophysical Prof W/O NST Date of Exa m: 04/15/25 Exam# [id number] Ordering Dr: Edel Rowley DO PROCEDURE: OB [...] NST IMPRESSION: Normal biophysical profile. Reading Location: [facility] CC: Dr. Steffen Eisenberg MD; Dr. Edel Bullock DO ~ Senior Net Application Developer: Signed [facility]07-09-2025 Progress [facility] [address], [address] [place] [address] OFFICE VISIT Date of Service: 04/07/25 MR#: [id number] Acct: [id number] Name: BARBY CABALLERO Rep #: [id number] : 1990 Provider: Dr. Kellen Bullock DO Age/Sex: 34/F [place] 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 Date Name GA/Weeks Outcome Route Bth Weight Infant Gen Labor Lgth Anesthesia Del Locatn Provider FOB 07/18/21 Larry 40 live - full term 7lbs 7oz Male [facility] [place] Delivery Date: 07/18/21 Last Updated by: [...] transfer. declines NIPT had genetic testing at [facility] 11/05/24 -?-?-?-?-?-?-?-?-?-?--?-?- 12w 1d 260 lb [...] Symptoms of Preeclampsia, Infant Feeding No , [place] Education and Family Medical Leave or Disability [...] Shanita DO> Date _ Edel Bullock DO [facility] Signature: Date (if applicable) CC: ~ [facility]06-27-2025 Progress [facility] [address] [place] [address], [address] [place] [address] OFFICE VISIT Date of Service: 03/26/25 MR#: [id number] Acct: [id number] Name: BARBY CABALLERO Rep #: [id number] : 1990 Provider: Dr. Kellen Bullock DO Age/Sex: 34/F [place] 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 [facility] signed today JV- no lof, vaginal bleeding , or dec fm. has growth scans at 34 and 38 weeks. [facility] signed today. pelvic exam performed [...] Cosign Signature: Date (if applicable) CC: ~ [facility] [id number] Progress note Author Edel Diehl [facility] Note Date/Time March 26, 2025 2:36 pm [facility] [address] [place] [address], [address] [place] [address] OFFICE VISIT Date of Service: 03/26/25 MR#: [id number] Acct: [id number] Name: BARBY CABALLERO Rep #: [id number] : 1990 Provider: Dr. Kellen Bullock DO Age/Sex: 34/F Location[place] 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 Date Name GA/Weeks Outcome Route Bth Weight Gen Labor Lgth Anesthesia Del Locatn Provider FOB 07/18/21 Larry 40 live - full term 7lbs 7oz Male [facility] [place] Delivery Date: 07/18/21 Last Updated by: [...] growth scans at 34 and 38 weeks. [facility] signed today JV- no lof, vaginal bleeding , or dec fm. has growth scans at 34 and 38 weeks. [facility] signed today. pelvic exam performed [...] and Symptoms of Preeclampsia, Feeding No , [place] Education and Family Medical Leave or Disability [...] Quintana DO> Date _ Edel Bullock DO [facility] Signature: Date (if applicable) CC: ~ [facility] Work Phone: 1(997) 508-453705-30-2025 Progress [facility] [address] [place] [address], [address] [place] [address] OFFICE VISIT Date of Service: 02/26/25 MR#: [id number] Acct: [id number] Name: BARBY CABALLERO Rep #: [id number] : 1990 Provider: Dr. 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 Is patient in pain?: No [...] 1 current occupational status: unemployed current occupation: [employer] current occupational exposures/hazards: No 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 Date Name GA/Weeks Outcome Route Bth Weight Gen Labor Lgth Anesthesia Del Locatn Provider FOB 07/18/21 Larry 40 live - full term 7lbs 7oz Male [facility] [place] Delivery Date: 07/18/21 Last Updated by: [...] transfer. declines NIPT had genetic testing at 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 Department Chair 1,500 unit IM right gluteal 1 ea [id number] 03/05/27 20400-827-7 0 [employer] [facility] Results POC Urinalysis 2 Dip (Clinic) [...] Cosigner Signature: Date (if applicable) CC: ~ [facility]05-02-2025 Evaluation note* Diagnosis Onset Date Resolution Status [...] 2025 2:10pm Depression with anxiety acute J pending sale to [facility] 2024 2:10pm Family history of genetic disorder [...] of high-risk acute May 06, 2025 2:05pm [facility] Work Phone: 1([phone]) 554-509704-04-2025 Evaluation note* Diagnosis Onset Date Resolution Status [...] 2025 2:11pm Depression with anxiety acute J pending sale to [facility] 2024 2:11pm Family history of genetic disorder [...] high-risk acute April 07, 2025 9 :54am [facility] Work Phone: 1(142) 125-558004-04-2025 Evaluation note* Diagnosis Onset Date Resolution Status [...] 2025 2:11pm Depression with anxiety acute J pending sale to [facility] 2024 2:11pm Family history of genetic disorder [...] 2025 2:10pm Depression with anxiety acute J pending sale to [facility] 2024 2:10pm Family history of genetic disorder [...] of high-risk acute April 20, 2025 1:59pm [facility] Work Phone: 1([phone]) 182-510304-04-2025 Evaluation note* Diagnosis Onset Date Resolution Status [...] 2025 2:11pm Depression with anxiety acute J pending sale to [facility] 2024 2:11pm Family history of genetic disorder [...] 26, 2025 2:10pm Depression with anxiety acute [facility] 2024 2:10pm Family history of genetic [...] 28, 2025 2:01pm Depression with anxiety acute [facility]2024 2:01pm Family history of genetic disorder acute [...] of high-risk acute April 28, 2025 2:01pm [facility] Work Phone: 1(271) 880-258903-06-2025 Evaluation note* Diagnosis Onset Date Resolution Status [...] high-risk acute February 26, 2025 8 :34am [facility] Work Phone: 1(282) 413-639703-06-2025 Evaluation note* Diagnosis Onset Date Resolution Status [...] of high-risk acute March 10, 2025 2:11pm [facility] Work Phone: 1([phone]) 429-591403-06-2025 Evaluation note* Diagnosis Onset Date Resolution Status [...] 2025 2:10pm Depression with anxiety acute J pending sale to [facility] 2024 2:10pm Family history of genetic disorder [...] of high-risk acute March 26, 2025 2:10pm [facility] Work Phone: [phone]) 710-519802-06-2025 Evaluation note* Diagnosis Onset Date Resolution Status Admit Date AMA (advanced maternal age) multigravida 35+ acute November 05, 2 025 2:22pm Conceived by in vitro fertilization acute November 05 2:22pm Depression with anxiety [place] 2024 2:22pm Family history of genetic disorder [...] high-risk acute February 26, 2025 8 :34am [facility] Work Phone: 1([phone]) 214-207902-04-2025 NoteHNO ID: [id number] Author: DEMARCUS MINER PA-C Service: ? Author Type: Physician Preschool Paraprofessional Type: Progress Notes Filed: 11/03/2024 16:55 Note Text: Telemedicine Visit - Distance Health Virtual Visit Note Patient seen on lmbang Video Visit platform. Location of patient: [place] I have communicated my name and active licensure. The patient's identity and physical location were verified at the time of this visit. Either the patient or their legal food service sales representatives has been informed of the risks and [...] person care - All questions answered MILAD [facility]02-04-2025 History of Present illness Narrative* Demarcus Miner PA-C - 11/03/2024 4:51 PM EST Telemedicine Visit - Distance Health Virtual Visit Note Patient seen on [employer]mbang Video Visit platform. Location of patient: [place] I have communicated my name and active licensure. The patient's identity and physical location wereverified at the time of this visit. Either the patient or their legal food service sales representatives has been informed of the risks and [...] answered Demarcus Miner PA-C [facility] Note * Telephone Encounter - Marta Del Valle MD - 07/29/2024 5:17 PM EDT Due for yearly follow up - must be seen to get additional re [facility]2024 Miscellaneous Notes* Telephone Encounter - Marta Del Valle MD - 07/29/2024 5:17 PM EDT Due for yearly follow up - must be seen to get additional re [facility]2024 NoteHNO ID: [id number] Author: GINA SAHU APRN.[employer]ER ATTENDANT Service: ? Author Type: Nurse Practitioner Type: [...] Patient agreeable to treatment plan. Gina Sahu APRN.[facility]04-14-2024 History of Present illness Narrative* Gina Sahu APRN.[facility] - 01/12/2024 11:06 AM EDT CC: [...] plan. Gina Sahu APRN.LEXII documented in this encounterSt[facility]-2024 Procedure [facility]04-12-2023 History of Present illness Narrative* Lynne Landaverde - 01/09/2023 9:00 AM EDT Patient offered a medical psychiatry physician for sensitive exam. Pt declined [facility] History of Present illness Narrative* Maile Bobby [...] . Physical Exam Exam conducted with a psychiatry physician present. Constitutional: General: She is not in [...] pumping but will send e consult for emission specialist to ensure no additional work up indicated. Normal breast exam, normal TFTs and prolactin documented [facility]12-07-2022 NoteSatisfactory For Evaluation; Endocervical/Transformation Zone Component Present.[facility] CenterComment on above:Order Comment: Patient'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Performed By: #### THINP #### [facility] (DEFAULT) [address] [place] [address] [id number] History of Present illness Narrative* Faith Starkey [...] Exam in one year. documented in this encounterMet[facility]12-07-2022 Miscellaneous Notes* Addendum Note - Chris Whitney MA - 09/05/2022 1:30 PM ESTAddended by: CHRIS WHITNEY on: 09/05/2022 02:34 PM Modules accepted: Orders * Addendum Note - Faith Starkey MD - 09/05/2022 1:30 PM ESTAddended by: FAITH STARKEY on: 09/05/2022 03:03 PM Modules accepted: Orders documented in this encounterMet[facility]12-07-2022 Note* Addendum Note - Chris Whitney MA - 09/05/2022 1:30 PM ESTAddended by: CHRIS WHITNEY on: 09/05/2022 02:34 PM Modules accepted: Orders [facility]12-07-2022 Note* Addendum Note - Faith Starkey MD - 09/05/2022 1:30 PM ESTAddended by: FAITH STARKEY on: 09/05/2022 03:03 PM Modules accepted: Orders [facility]08-18-2021 History of Present illness Narrative* Faith Starkey [...] Rh neg Posterior placenta Discussed (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 Objective: Assessment: 31w5d Plan: 1. Has US in 3 weeks 2. RTC 2-4 weeks documented in this encounterOS[facility] HospitalEvaluation [facility]* Diagnosis Supervision of normal first , antepartum- Primary [facility]* Diagnosis Well woman exam with routine gynecological exam- Primary Routine gynecological examination [facility]* Diagnosis Well adult exam- [...] full remission [facility]* Diagnosis Breast pain, right Mastodynia [facility]* Diagnosis Onset Date Resolution Status Infertility associated with anovulation acute PCOS (polycystic ovarian syndrome) acute Encounter for routine gynecological examination noneactive PCOS (polycystic ovarian syndrome) acute [facility] Work Phone: Evaluation note* Diagnosis URI, acute- Primary Acute upper respiratory infections of unspecified site Acute otitis media, right Unspecified otitis media Acute cough [facility]* Diagnosis Encounter for assisted reproductive fertility procedure cycle documented in this encounter [facility] Work Phone: Evaluation note* Diagnosis Encounter for assisted reproductive fertility procedure cycle documented in this encounter [facility] Work Phone: Evaluation note* Diagnosis Encounter for assisted reproductive fertility procedure cycle documented in this encounter [facility] Work Phone: Evaluation note* Diagnosis Encounter for assisted reproductive fertility procedure cycle documented in this encounter [facility] Work Phone: Evaluation note* Diagnosis Encounter for test, result positive ([facility]) documented in this encounter [facility] Work Phone: Evaluation note* Diagnosis Encounter for test, result positive ([facility]) documented in this encounter [facility] Work Phone: Evaluation note* Diagnosis Viral URI with cough- Primary Acute upper respiratory infections of unspecified site [facility] Attachments The following attachments cannot be sent through Care Everywhere. * Breast Health ([facility]) (Swedish) * Breast Self-Exam (Swedish) documented in this encounterOS[facility] HospitalProgress note Author Apple Lao [facility] Note Date/Time February 26, 2025 9:38a m [facility] [address] [place] [address], [address] [place] [address] OFFICE VISIT Date of Service: 02/26/25 MR#: [id number] Acct: [id number] Name: FEDERICOBARBYVICKI BLAND Rep #: [id number] : 1990 Provider: Dr. Frank Lao MD Age/Sex: 34/F [place] 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 Date Name GA/Weeks Outcome Route Bth Weight Infant Gen Labor Lgth Anesthesia Del Locatn Provider FOB 07/18/21 Larry 40 live - full term 7lbs 7oz Male [facility] [place] Delivery Date: 07/18/21 Last Updated by: [...] transfer. declines NIPT had genetic testing at [facility] 11/05/24 -?-?-?-?-?-?-?-?-?-?-?-?- 12w 1d 260 lb [...] and Symptoms of Preeclampsia, Feeding No , [place] Education and Family Medical Leave or Disability Forms Office Procedures Injections Is this a patient provided medication?: No Office Meds RhoGAM Ultra-Filtered PLUS 1,500 unit (300 mcg) intramuscular syringe Performing Provider: Apple Lao MD Performing Location: [facility] Administered by: Aziza Olson on 02/26/25 08:56 Dose Route Admin Location Dispensed Lot Number Expiration Date [facility] Environmental Studies Department Chair 1,500 unit IM right gluteal 1 ea [id number] 03/05/27 86731-992-2 0 [facility] Results POC Urinalysis 2 Dip (Clinic) [...] Haque Signature: Date (if applicable) CC: ~ [facility] Work Phone: Progress note Author Edel Diehl [facility] Note Date/Time April 07, 2025 10:55 am [facility] [address] [place] [address], [address] [place] [address] OFFICE VISIT Date of Service: 04/07/25 MR#: [id number] Acct: [id number] Name: BARBY CABALLERO Rep #: [id number] : 1990 Provider: Dr. Kellen Bullock DO Age/Sex: 34/F [place] 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 Date Name GA/Weeks Outcome Route Bth Weight Infant Gen Labor Lgth Anesthesia Del Locatn Provider FOB 07/18/21 Larry 40 live - full term 7lbs 7oz Male [facility] [place] Delivery Date: 07/18/21 Last Updated by: [...] and Symptoms of Preeclampsia, Feeding No , [place] Education and Family Medical Leave or Disability [...] Cosigner Signature: Date (if applicable) CC: ~ [facility] Work Phone: Reason for referral (narrative)No reason for referral information [facility] Work Phone: Reason for visit Narrative* Imaging (Routine) - Authorized Specialty Diagnoses / Procedures Referred By Adia vicente Referred To Contact Radiology Diagnoses Encounter for assisted reproductive fertility procedure cycle Procedures US PELVIS TRANSABDOMINAL WITH TRANSVAGINAL Levon Braxton MD [address] [facility] [place] [address] Phone: tel: fax: Referral ID Status Reason Start Date Expiration Date Visits Requested Visits Authorized [id number] Authorized Perform Procedure 4 08/13/2025 1 1 [facility] Work Phone: Reason for visit Narrative* Imaging (Routine) - Authorized Specialty Diagnoses / Procedures Referred By Contac t Referred To Contact Radiology Diagnoses Encounter for assisted reproductive fertility procedure cycle Procedures US PELVIS TRANSABDOMINAL WITH TRANSVAGINAL Levon Braxton MD [address] [place] [address] Phone: tel: fax: Referral ID Status Reason Start Date Expiration Date Visits Requested Visits Authorized [id number] Authorized Perform Procedure 4 08/14/2025 1 1 [facility] Work Phone: Revhxw for visit Narrative* Imaging (Routine) - Authorized Specialty Diagnoses / Procedures Referred By Contac t Referred To Contact Radiology Diagnoses Encounter for test, result positive (HHS-HCC) Procedures US PELVIS OB TRANSABDOMINAL W TRANSVAGINAL UP TO 1ST TRIMESTER Levon Braxton MD [address] [place] [address] Phone: tel: fax: Referral ID Status Reason Start Date Expiration Date Visits Requested Visits Authorized [id number] Authorized Perform Procedure 4 09/15/2025 1 1 [facility] Work Phone: Reason for visit Narrative* Imaging (Routine) - Authorized Specialty Diagnoses / Procedures Referred By Contac t Referred To Contact Radiology Diagnoses Encounter for test, result positive (HHS-HCC) Procedures US PELVIS OB TRANSABDOMINAL W TRANSVAGINAL UP TO 1ST TRIMESTER Levon Braxton MD [address] [place] [address] Phone: tel: fax: Referral ID Status Reason Start Date Expiration Date Visits Requested Visits Authorized [id number] Authorized Perform Procedure 4 09/25/2025 1 1 [facility] Work Phone: History of Present Illness * Janes Gutiérrez MD - 08/20/2018 9:07 AM EST Formatting of this note may be different from the original. [facility] [address] [facility] [address] Hematology and Oncology Progress Note Patient Name: Barby Caballero MR #: [id number] : 1990 Date of Service: 08/20/18 Clinician: Janes Gutiérrez MD DIAGNOSIS Leukocytosis, etiology unknown. Dictation on: 08/20/2018 9:09 AM by: JANES GUTIÉRREZ [[id number]] History of Present Illness: Ms. Barby Caballero [...] bowel disease or arthritis. 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 For some reason, her CRP has been high over the last year. By reviewing her chart, she had leukocytosis for almost a year now. She is not on any steroid product. Dictation on: 08/20/2018 9:36 AM by: JANES GUTIÉRREZ [[id number]] Allergies Allergen Reactions Amoxicillin Diarrhea and GI [...] on: 08/20/2018 9:37 AM by: JANES GUTIÉRREZ [[id number]] Orders Placed This Encounter CBC and Differential Janes Gutiérrez MD CC: Marta Del Valle MD in this encounter* Janes Gutiérrez MD - 01/22/2020 1:48 PM EDT [facility] [address] [place] [id number] Hematology and Oncology Progress Note Patient Name: Barby Caballero MR #: [id number] : 1990 Date of Service: 02/18/2019 Clinician: [...] bowel disease or arthritis. 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 For some reason, her CRP has been [...] back negative. She is clinically asymptomatic. Stillworking time study technician. 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 famotidine (PEPCID) 40 MG tablet vit 94-hgxy-uyxwh-dha ( + DHA) 28 mg iron- 975 [...] go immediately to ED for further evaluation [facility] COVID-19 Post-swabbing Instructions We will do our best to update you as soon as we receive your test results, but if we had to send your test to be run at the lab, you may see the results on MyChart or receive a call from [facility] before we are able to contact you. [...] results. - If you have an active Quint[employer] account, and your COVID-19 test is negative (not detected), then you will be notified through your Quintic account. You should call the urgent care if you have any further questions. - If your COVID-19 test is positive (detected), you will receive a phone call to discuss your results and answer any questions you might have at that time. Please make sure [facility] has your updated phone number so we can contact you. [facility] will notify the [facility] of any positive results to comply with [...] and warm water and/or alcohol based hand drug safety coordinator, scrubbing your hands for at least 20 [...] Other COVID Questions? CDC - https://www.cdc.gov/coronavirus/2019-ncov/index.html - https://www.cdc.gov/coronavirus/2019-ncov/vs-efe-lrs-sick/quarantine.html [facility] - Website: https://coronavirus.[place].gov/wps/portal/gov/covid-19/home - Hotline: 687-0-GRI-ODH (378-236-9991) [facility]: https://blog.AgBiome/series/ninew-89-ljopigwkgcd-toolkit/ documented in this encounter* Janes Gutiérrez MD - 08/19/2019 11:05 AM EST [facility] [address] [facility] [address] Hematology and Oncology Progress Note Patient Name: Barby Caballero MR #: [id number] : 1990 Date of Service: 08/19/19 Clinician: [...] bowel disease or arthritis. 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 For some reason, her CRP has been [...] days. No fever or chills. 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 Dictation on: 08/19/2019 11:07 AM by: JANES GUTIÉRREZ [[id number]] Allergies Allergen Reactions Amoxicillin Diarrhea and GI [...] file Gets together: Not on file Attends sabianism service: Not on file Active member of [...] on: 08/19/2019 11:08 AM by: JANES GUTIÉRREZ [[id number]] Orders Placed This Encounter famotidine (PEPCID) 40 [...] sent through Care Everywhere. * Abdominal Pain (Swedish) documented in this encounter* Instructions* Laurent Duque MD - 03/19/2019 Continue taking your home medications as prescribed. Follow-up with your family doctor first available appointment. Return to the emergency room for any worsening symptoms or concerns * Attachments The following attachments cannot be sent through Care Everywhere. 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 No November 10, 2024 8:21pm Summary Purpose Family History No Family History Records Found Relationship Condition Age at Onset Recorded Date/T sherri mother Hypertension Unknown grandfather Cardiac disease Unknown Hypertension Unknown Diabetes mellitus Unknown Malignant neoplasm Unknown Macular degeneration Unknown grandmother Macular degeneration Unknown Instructions * Patient Instructions* Sandie Tyler MA - 08/23/2020 9:02 AM EST Effective 10/14/2019, all Quintic users will be automatically enrolled in paperless billing in an effort to save our environment by eliminating waste & reduce healthcare costs. A monthly notification will be sent to your e-mail address on file indicating you have a new billing statement available in Quintic. If you prefer to receive paper statements, log into Quintic at [facility] to update your e-mail, text and mail preferences (opting out of paperless billing). Please direct further questions to Customer Service at [phone] or [email or web address]. documented in this encounter* Patient Instructions* Marli [...] go immediately to ED for further evaluation [facility] COVID-19 Post-swabbing Instructions We will do our best to update you as soon as we receive your test results, but if we had to send your test to be run at the lab, you may see the results on MyChart or receive a call from [facility] before we are able to contact you. [...] results. - If you have an active Quintic account, and your COVID-19 test is negative (not detected), then you will be notified through your Quintic account. You should call the urgent care if you have any further questions. - If your COVID-19 test is positive (detected), you will receive a phone call to discuss your results and answer any questions you might have at that time. Please make sure [facility] has your updated phone number so we can contact you. [facility] will notify the [facility] of any positive results to comply with [...] and warm water and/or alcohol based hand drug safety coordinator, scrubbing your hands for at least 20 [...] Other COVID Questions? CDC - https://www.cdc.gov/coronavirus/2019-ncov/index.html - https://www.cdc.gov/coronavirus/2019-ncov/kk-whq-kfx-sick/quarantine.html [place] [facility] - Website: https://coronavirus.[place].gov/wps/portal/gov/covid-19/home - Hotline: 466-2-HVR-ODH (090-847-8064) [facility]: https://blog.rag & bone.Odyssey Thera/series/teynf-59-ldwffldylrp-toolkit/ documented in this encounter Reason for Referral Specialty Diagnoses / Procedures Referred By Contdanielle t Referred To Contact Diagnoses Prolonged Marta Del Valle MD [address] [place] [address] Referral ID Status Reason Start Date Expiration Date V isits Requested Visits Authorized [id number] New Request 09/27/2022 10/22/2023 1 1 Specialty Diagnoses / Procedures Referred By Adia vicente Referred To Contact Radiology Diagnoses Encounter for assisted reproductive fertility procedure cycle Procedures US PELVIS TRANSABDOMINAL WITH TRANSVAGINAL US pelvis transvaginal Levon Braxton MD [address] [place] [address] Referral ID Status Reason Start Date Expiration Date Visits Requested Visits Authorized [id number] Pending Review Perform Procedure 06/11/2024 06/11/2025 1 1 Specialty Diagnoses / Procedures Referred By Adia vicente Referred To Contact Radiology Diagnoses Encounter for assisted reproductive fertility procedure cycle Procedures GERRY US Pelvis Limited Follicles - Follicle Studies Performed Levon Braxton MD [address] [place] [address] Referral ID Status Reason Start Date Expiration Date Visits Requested Visits Authorized [id number] Authorized Perform Procedure 06/19/2024 06/19/2025 1 1 Specialty Diagnoses / Procedures Referred By Adia vicente Referred To Contact Radiology Diagnoses Encounter for assisted reproductive fertility procedure cycle Procedures US PELVIS TRANSABDOMINAL WITH TRANSVAGINAL Levon Braxton MD [address] [place] [address] Referral ID Status Reason Start Date Expiration Date Visits Requested Visits Authorized [id number] Authorized Perform Procedure 06/15/2024 06/15/2025 1 1 Referral ID Status Reason Start Date Expiration Date Visits Requested Visits Authorized [id number] Authorized Perform Procedure 06/22/2024 06/22/2025 1 1 Referral ID Status Reason Start Date Expiration Date Visits Requested Visits Authorized [id number] Authorized Perform Procedure 06/15/2024 06/15/2025 1 1 Referral ID Status Reason Start Date Expiration Date Visits Requested Visits Authorized [id number] Authorized Perform Procedure 06/24/2024 06/24/2025 1 1 Referral ID Status Reason Start Date Expiration Date Visits Requested Visits Authorized [id number] Authorized Perform Procedure 06/15/2024 06/15/2025 1 1 Chief Complaint and Reason for Visit 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2024 2:22pm GERD (gastroesophageal reflux disease) [place] 2024 2:22pm H/O section November 05, 2024 2:22pm Infertility associated with anovulation November 05, 2024 2:22pm Marijuana use November 05, 2024 2 :22pm Obesity affecting October 2:22pm PCOS (polycystic ovarian syndrome) [facility]2024 2:22pm November 05, 2024 2 :22pm Rh negative status during 2024 2:22pm Sleep apnea November 05, 2024 2 :22pm Supervision of high-risk [facility] 2024 2:22pm AMA (advanced maternal age) multigravida 35+ December 03, 2024 1:25pm Conceived by in vitro fertilization [facility] 2024 1:25pm Depression with anxiety December 03, 2024 1:25pm Family history of genetic disorder December 03, 2024 1:25pm GERD (gastroesophageal reflux disease) M [facility] 2024 1:25pm H/O section December [...] 2024 1:25pm Conceived by in vitro fertilization [facility] 2024 1:25pm Depression with anxiety December 03, [...] 2025 2:10pm GERD (gastroesophageal reflux disease) J pending sale to [facility] 2024 2:10pm H/O section March 26, 2025 [...] 2025 2:11pm GERD (gastroesophageal reflux disease) J pending sale to [facility] 2024 2:11pm H/O section March 10, 2025 [...] 2025 2:10pm GERD (gastroesophageal reflux disease) J pending sale to [facility] 2024 2:10pm H/O section March 26, 2025 [...] 2025 2:11pm GERD (gastroesophageal reflux disease) J pending sale to [facility] 2024 2:11pm H/O section March 10, 2025 [...] 2025 2:10pm GERD (gastroesophageal reflux disease) J pending sale to [facility] 2024 2:10pm H/O section March 26, 2025 [...] 2025 9:54am GERD (gastroesophageal reflux disease) J [facility] 2024 9:54am H/O section April 07, 2025 [...] 2025 9:54am GERD (gastroesophageal reflux disease) J [facility] 2024 9:54am H/O section April 07, 2025 [...] BILATERAL Lawrence Young MD [address] [place] [address] Referral ID Status Reason Start Date Expiration Date V isits Requested Visits Authorized [id number] New Request 12/19/2022 01/13/2024 1 1 Reason Comments Cough Fevers x4 days Specialty Diagnoses / Procedures Referred By Adia vicente Referred To Contact Radiology Diagnoses Encounter for assisted reproductive fertility procedure cycle Procedures US PELVIS TRANSABDOMINAL WITH TRANSVAGINAL US pelvis transvaginal Levon Braxton MD [address] [place] [address] Referral ID Status Reason Start Date Expiration Date Visits Requested Visits Authorized [id number] Pending Review Perform Procedure 06/11/2024 06/11/2025 1 1 Specialty Diagnoses / Procedures Referred By Adia vicente Referred To Contact Radiology Diagnoses Encounter for assisted reproductive fertility procedure cycle Procedures US PELVIS TRANSABDOMINAL WITH TRANSVAGINAL Levon Braxton MD [address] [place] [address] Referral ID Status Reason Start Date Expiration Date Visits Requested Visits Authorized [id number] Authorized Perform Procedure 06/15/2024 06/15/2025 1 1 Referral ID Status Reason Start Date Expiration Date Visits Requested Visits Authorized [id number] Authorized Perform Procedure 06/15/2024 06/15/2025 1 1 Referral ID Status Reason Start Date Expiration Date Visits Requested Visits Authorized [id number] Authorized Perform Procedure 06/15/2024 06/15/2025 1 1 Reason Comments Cough [place], Max Tone, PA-C - 07/29/2019 1:14 PM Mirta Davenport RN - 07/29/2019 12:15 PM Mirta Davenport RN - 07/29/2019 10:40 AM Rebeca Jiménez RN - 07/29/2019 10:25 AM EDT ED Notes (unrecognized secti on and content) [facility] NAME: Barby Caballero PCP: Marta Del Valle MD AGE: 28 y.o. CSN: [id number] ED Course / Medical Decision Making: After [...] does note that she has a Halloween green party she is hosting this weekend and [...] file Gets together: Not on file Attends sabianism service: Not on file Active member of [...] Procedure Abnormality Status --------- ------ CBC Auto Differential[[id number]] Abnormal Final result Please view results for [...] Otherwise unremarkable right upper quadrant abdominal ultrasound. [employer]Weaved Workstation ID: [id number] No current facility-administered medications [...] for ER worsening or new concerning symptoms [address] [facility] [address] Contact information for after-discharge care Follow-up information has not been specified. New Prescriptions ondansetron (Zofran ODT) 4 MG disintegrating tablet Dissolve 1 (one) tablet (4 mg total) on top of tongue every 6 (six) hours as needed for nausea . Max Alan MPAS PA-C Emergency Department Physician Preschool Paraprofessional (Please note that portions of this note [...] with steady gait Associated Order(s): EKG 12-lead [facility] PCP - Marta Del Valle MD Chief Complaint Patient presents with Chest Pain HPI 28-year-old white female with a history of reflux, depression, anxiety, and irritable bowel states that shortly after 6 PM she had some Estonian fries and drank a beer and then [...] Marta Del Valle MD. Specialty: Internal Medicine [address] [place] [address] [facility] [address] Contact information for after-discharge care [...] file Gets together: Not on file Attends sabianism service: Not on file Active member of [...] atelectatic change with no other acute process. [employer] Workstation ID: [id number] No results found. Medications [...] expedite correspondence this note was generated by Kloud[employer]atch voice recognition software. Some grammatical or spelling [...] Procedure Abnormality Status --------- ------ CBC Auto Differential[[id number]] Abnormal Final result Please view results for [...] took protonix at dinner which she had hebrew fries and 1 [place]ry [place]chard drink. documented [...] section and content) DATE CREATED AUTHOR [facility]2020 [facility] DATE CREATED AUTHOR AUTHOR'S ORGANIZ ATION 08/23/2020 [facility] DATE CREATED AUTHOR AUTHOR'S ORGANIZ ATION 10/04/2021 [facility] DATE CREATED AUTHOR AUTHOR'S ORGANIZ ATION 10/06/2021 [facility] DATE CREATED AUTHOR AUTHOR'S ORGANIZ ATION 10/08/2021 [facility] DATE CREATED AUTHOR AUTHOR'S ORGANIZ ATION 05/04/2023 [facility] DATE CREATED AUTHOR AUTHOR'S ORGANIZ ATION 10/09/2024 [facility] DATE CREATED AUTHOR AUTHOR'S ORGANIZ ATION 10/09/2024 [facility] DATE CREATED AUTHOR AUTHOR'S ORGANIZ ATION 11/05/2024 [facility] DATE CREATED AUTHOR AUTHOR'S ORGANIZ ATION 05/08/2025 [facility] DATE CREATED AUTHOR AUTHOR'S ORGANIZ ATION 05/10/2025 [facility] Care Teams (unrecognized sec tion and content) Hadoop Analyst Relationship Specialty Start Date End Date Marta Del Valle MD PCP - General Internal Medicine 12/09/13 Hadoop Analyst Relationship Specialty Start Date End Date Marta Del Valle MD PCP - General Internal Medicine 12/09/13 Faith Starkey MD [address] [address] PCP - OBGYN Obstetrics & Gynecology 07/17/21 Hadoop Analyst Relationship Specialty Start Date End Date Marta Del Valle MD PCP - General Internal Medicine 12/09/13 Faith Starkey MD [address] [facility] [address] [place] [phone] PCP - OBGYN Obstetrics & Gynecology 07/17/21 Hadoop Analyst Relationship Specialty Start Date End Date Faith Starkey MD [address] [facility] [address] [place] [phone] PCP - OBGYN Obstetrics & Gynecology 07/17/21 Marta Del Valle MD [address] [place] [address], [place] [phone] PCP - General Internal Medicine 01/09/23 Lawrence Young MD [address] [place] [address], [place] [phone] Referring Provider Internal Medicine 01/09/23 Team Status: [...] Primary Care Physician Primary Care Provider Active Hadoop Analyst Relationship Specialty Start Date End Date Faith Starkey MD [address] [phone] PCP - OBGYN Obstetrics & Gynecology 07/17/21 Marat Del Valle MD [address] [place] [address], [place] [phone] PCP - General Internal Medicine 01/09/23 Lawrence Young MD [address] [place] [phone] Referring Provider Internal Medicine 01/09/23 Hadoop Analyst Relationship Specialty Start Date End Date Steffen Eisenberg MD [address] [place] [phone] PCP - General Internal Medicine 08/14/24 Hadoop Analyst Relationship Specialty Start Date End Date Generic Provider, No [place] [address] PCP - General Journeyman Welder 06/15/24 Hadoop Analyst Relationship Specialty Start Date End Date Generic Provider, No [place] [address] PCP - General Journeyman Welder 06/15/24 Hadoop Analyst Relationship Specialty Start Date End Date Generic Provider, No [place] [address] PCP - General Journeyman Welder 06/15/24 Hadoop Analyst Relationship Specialty Start Date End Date Generic Provider, No [place] [address] PCP - General Journeyman Welder 06/15/24 Hadoop Analyst Relationship Specialty Start Date End Date Steffen Eisenberg MD [address] [place] [phone] PCP - General Internal Medicine 08/14/24 Hadoop Analyst Relationship Specialty Start Date End Date Steffen Eisenberg MD [address] [place] [phone] PCP - General Internal Medicine 08/14/24 Team [...] 05, 2025 End: March 05, 2025 Kiley aJin CNM Attending Provider Active S tart: March [...] Status: Inactive Member Role/Relationship Status Dates Dr. Stfefen Eisenberg MD Primary Care Provider Active Start: [...] Provider Active Start: May 06, 2025 Dr. Edel Bullock DO [...] or prosecute any alcohol or drug abuse patient.[facility] the event this information is protected by the Federal Confidentiality of Alcohol and Drug Abuse Patient Records regulations: The Federal rules restrict any use of the information to criminally investigate or prosecute any alcohol or drug abuse patient.[facility] FOR RECORDS PERTAINING TO PATIENTS WHO [...] BE BASED ON THE PRIMARY CLINICAL RECORDS. [facility] [employer] [facility]. provides no warranty or guarantee of the accuracy or completeness of information in this document.
[2025-05-12 07:14] LABS: Syphilis Antibodies Nonreactive (Nonreactive)
--- NOTE | 2025-05-12 07:14 | HP.PCM.OB_ITS ---
HPI - General General Date of Admission: 05/12/25 HPI Narrative * BARBY CABALLERO, is a 34 y/o @ 39 weeks 0 days who presents to L&D for a repeat section. Maternal Data Information ANTONIO Calculator Estimated Delivery Date Method Current WG Current Estimate 05/19/25 Conception 39w 0d [facility] Medical History PCOS (polycystic ovarian syndrome) Infertility Depression with anxiety GERD (gastroesophageal reflux disease) Home Medications ?Medication ?Instructions ?Recorded ?Last Taken ?Type escitalopram oxalate 10 mg tablet 10 mg PO DAILY anxie ty/depression 07/20/24 05/11/25 18:00 Rx (Lexapro) #30 tabs 10 mg docosahexaenoic acid 200 mg 200 mg PO DAILY #90 caps 07/28/24 05/11/25 08:00 Rx capsule ( DHA) 200 mg levothyroxine 25 mcg tablet 25 mcg PO QDAY hypothyroid ism #90 10/14/24 05/12/25 06:00 Rx (Synthroid) tabs 25 mcg famotidine 40 mg tablet (Pepcid) 40 mg PO DAILY indige stion #30 tabs 01/11/25 05/11/25 18:00 Rx 40 mg breast pump #1 ea 01/29/25 Unknown Rx aspirin 81 mg tablet 81 mg PO DAILY 05/10/25 08:00 History 81 mg magnesium 200 mg tablet 200 mg PO DAILY muscle spasm 04/19/25 05/11/25 18:00 History 200 mg Allergy/AdvReac Type Severity Reaction Status Date / Time No Known Allergies Allergy Verified 05/12/25 06:30 Family History Mother Hypertension Grandfather Heart disease Hypertension Diabetes Cancer Macular degeneration Grandmother Macular degeneration Surgical History H/O successful vaginal after , currently H/O section History of surgical procedure S/P cholecystectomy S/P S/P wisdom tooth extraction Social History adopted: No household members: spouse and children housing: house number of children: 1 current occupational status: unemployed current occupation: [employer] current occupational exposures/hazards: No 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) pets and animals: cat(s) history of recent travel: Yes ([place] for IVF) out of state: Yes sexually active: Yes Smoking Status: Former smoker quit date: 09/30/21 alcohol intake: current alcohol intake frequency: holidays/special occasions only details: Not while substance use type: former substance user Date of last use: May 2024 and marijuana diet: vegetarian well-balanced diet: about half the time caffeine: Yes Type: carbonated beverages Number of servings: 1 eating out: 4 or more times/week during the past year weight has: remained stable what type of physical activity do you participate in: none landon/mu-ism: None seatbelt use: always do you feel safe at home: Yes additional social history: : [employer] (works from home) History 2 Elective abortions Hx Para 1 Spontaneous abortions Hx # Term Pregnancies 1 Ectopic pregnancies Hx # Pregnancies Multiple births # of living children 1 Past Pregnancies Del. Date Name GA/Weeks Outcome Route Bth Weight Infant Gen Labor Lgth Anesthesia Del Locatn Provider FOB 07/18/21 Larry 40 live - full term 7lbs 7oz Male [facility] [place] Delivery Date: 07/18/21 Last Updated by: iAda Shields RN Induce d/t failure to progress naturally .. Slow progression of labor w/ decels .. Failed vacuum delivery into emergency csec Visit Details Expected Delivery Route/Plan repeat c/s Plans Covid status: [] Flu vaccine: [] Tdap vaccine: [] Rhogam: [] LARC form signed: [] Problem list reviewed and updated with the most current plan of care details and appropriate orders placed. Relevant counseling for the gestational age provided. Continue routine care and follow up unless otherwise noted in visit notes/problem list details OB Flowsheet Initial Weight: 264 lb Date -?-?-?-?-?-?-?-?-?-?-?-?- EGA Weight BP Urine Prot -?-?-?-?-?-?-?-?-?-?-?-?- Glucose FHR FuHt Pres Dilation -?-?-?-?-?-?-?-?-?-?-?-?- Effaced St Visit Note 10/09/24 -?-?-?-?-?-?-?-?-?-?-?-?- 8w 2d 264 lb (+0 oz) 120/76 -?-?-?-?-?-?-?-?-?-?-?-?- 169 -?-?-?-?-?-?-?-?-?-?-?-?- KW-CRL cons with embryo transfer. declines NIPT had genetic testing at I 11/05/24 -?-?-?-?-?-?-?-?-?-?-?-?- 12w 1d 260 lb (-4 lb) 125/89 Negative -?-?-?-?-?-?-?-?-?-?-?-?- Negative 165 -?-?-?-?-?-?-?-?-?-?-?-?- JV- pt to stop p rogesterone today. start baby asa for bmi and ama. 12/03/24 -?-?-?-?-?-?-?-?-?-?-?-?- 16w 1d 262 lb 6 oz (-1 lb 10 oz) 120/82 -?-?-?-?-?-?-?-?-?-?-?-?- 147 -?-?-?-?-?-?-?-?-?-?-?-?- JV- anatomy scan scheduled for 12/28. no cramping or spotting. + round ligament pain. JV- anatomy scan scheduled f or 12/28. no cramping or spotting. + round ligament pain. was in er for tachycardia that turned bradycardia and experience a vasovagal responds and passed out. ekg and labs were normal. will call if experiences this again and will need to consult cardiology. 01/01/25 -?-?-?-?-?-?-?-?-?-?-?-?- 20w 2d 262 lb 2 oz (-1 lb 14 oz) 125/82 Negative -?-?-?-?-?-?-?-?-?-?-?-?- Negative 130 -?-?-?-?-?-?-?-?-?-?-?-?- SM- no vb lof go od fm had anatomy scan, echo scan 01/29/25 -?-?-?-?-?-?-?-?-?-?-?-?- 24w 2d 261 lb 4 oz (-2 lb 12 oz) 114/81 -?-?-?-?-?-?-?-?-?-?-?-?- 134 -?-?-?-?-?-?-?-?-?-?-?-?- jV- working with counselor about ptsd from last delivery. worried about her weight. we talked this through and reassured. no cramping or dec fm or lof. 02/26/25 -?-?-?-?-?-?-?-?-?-?-?-?- 28w 2d 264 lb 2 oz (+2 oz) 102/66 Negative -?-?-?-?-?-?-?-?-?-?-?-?- Negative 155 30 -?-?-?-?-?-?-?-?-?-?-?-?- Sm- no vb lof go od fm nreo gualr ctx cbc gct today 03/10/25 -?-?-?-?-?-?-?-?-?-?-?-?- 30w 0d 265 lb 8 oz (+1 lb 8 oz) 110/76 Negative -?-?-?-?-?-?-?-?-?-?-?-?- Negative 147 30 0 -?-?-?-?-?-?-?-?-?-?-?-?- JV- no lof, vagi nal bleeding, or dec fm. has growth scans at 34 and 38 weeks. [facility] signed today JV- no lof, vaginal bleeding , or dec fm. has growth scans at 34 and 38 weeks. [facility] signed today. pelvic exam performed for tightening feeling. vaginitis smear ordered. 03/26/25 -?-?-?-?-?-?-?-?-?-?-?-?- 32w 2d 267 lb 4 oz (+3 lb 4 oz) 131/82 Negative -?-?-?-?-?--?-?-?-?-?-?-?- Negative 142 38 -?-?-?-?-?-?-?-?-?-?-?-?- JV- needs weekly bpp's starting 34 weeks for bmi and IVF. no complaints. contractions stopped with treatment of yeast. 04/07/25 -?-?-?-?-?-?-?-?-?-?-?-?- 34w 0d 268 lb 4 oz (+4 lb 4 oz) 119/80 -?-?-?-?-?-?-?-?-?-?-?-?- 138 35 -?-?-?-?-?-?-?-?-?-?-?-?- JV- c/o overall itching. bile acids and cmp ordered. low suspicion for Cholestasis of however. no lof, vaginal bleeding, or dec fm. 04/20/25 -?-?-?-?-?-?-?-?-?-?-?-?- 35w 6d 268 lb 4 oz (+4 lb 4 oz) 116/81 Negative -?-?-?-?-?-?-?-?-?-?-?-?- Negative 140 37 -?-?-?-?-?-?-?-?-?-?-?-?- SM- no vb lof go od fm no reuglar ctx 04/28/25 -?-?-?-?-?-?-?-?-?-?-?-?- 37w 0d 265 lb 4 oz (+1 lb 4 oz) 123/86 Negative -?-?-?-?-?-?-?-?-?-?-?-?- Negative 150 -?-?-?-?-?-?-?-?-?-?-?-?- JV- nst reactive GBS collected. no lof, vaginal bleeding, or dec fm. 05/06/25 -?-?-?-?-?-?-?-?-?-?-?-?- 38w 1d 271 lb 3 oz (+7 lb 3 oz) 125/84 Negative -?-?-?-?-?-?-?-?-?-?-?-?- Negative 160 -?-?-?-?-?-?-?-?-?-?-?-?- JV- no lof, vagi nal bleeding, or dec fm. NST reactive but initially was in the 170's to 180's transiently. she states that she just drank and large coke and rowan's ROS Constitutional Constitutional: Denies change in weight, fatigue, fever(s), headache(s), poor appetite or weakness Eyes Eyes: Denies blurry vision, change in vision, seeing flashes or spots in vision ENT HEENT: Denies dizziness, headache(s), loss taste/smell or sore throat Cardiovascular Cardiovascular: Denies chest pain, dizziness, dyspnea, irregular heart rhythm, leg edema, palpitations, rapid heart rate or vomiting Respiratory/Chest Respiratory/Chest: Denies chest tightness, cough, dyspnea or breast pain Gastrointestinal Gastrointestinal: Denies abdominal pain, anorexia, constipation, cramping, diarrhea, hemorrhoids, vomiting or weight changes Genitourinary Genitourinary: Denies dysuria, flank pain, genital lesions, genital pain, urinary frequency or urinary urgency Musculoskeletal Musculoskeletal: Denies back pain, difficulty walking, joint pain, limited range of motion, muscle cramps or numbness Integumentary Integumentary: Denies lesions or unusual bruising Neurologic Neurologic: Denies abnormal movements, abnormal speech, dizziness, numbness, seizure-like activity or syncope Psychiatric Psychiatric: Denies anxiety, behavioral changes, change in appetite, change in libido, cognitive impairment, confusion, depression, difficulty concentrating, hallucinations or suicidal thoughts Endocrine Endocrinology: Denies excessive sweating, polydipsia or polyuria Hematologic/Lymphatic Hematologic/Lymphatic: Denies easy bleeding, easy bruising or lymphadenopathy Allergic/Immunologic Allergic/Immunologic: Denies itchy eyes, lip swelling, seasonal rhinorrhea, rhinitis, throat swelling, tongue swelling, eczemia, wheezing or asthma Vital Signs Vital Signs Vital Signs: 05/12/25 06:07 05/12/25 06:15 05/12/25 06:15 Temperature Temperature Source Oral Pulse Rate Respiratory Rate 16 Blood Pressure 89/52 L Blood Pressure Mean BP Systolic 89 BP Diastolic 52 Blood Pressure Source Blood Pressure Position Blood Pressure Location Pulse Ox Oxygen Delivery Method 05/12/25 06:15 05/12/25 06:15 05/12/25 06:15 Temperature Temperature Source Pulse Rate 70 Respiratory Rate 16 Blood Pressure Blood Pressure Mean BP Systolic BP Diastolic Blood Pressure Source Blood Pressure Position Blood Pressure Location Pulse Ox 99 Oxygen Delivery Method 05/12/25 06:15 05/12/25 06:35 Temperature 98.4 F 98.4 F Temperature Source Temporal Pulse Rate 70 Respiratory Rate 16 Blood Pressure 89/52 L Blood Pressure Mean 64 BP Systolic BP Diastolic Blood Pressure Source Monitor Blood Pressure Position Semi-Fowlers Blood Pressure Location Right Arm Pulse Ox 99 Oxygen Delivery Method Room Air Weight Weight: 266 lb 12.149 oz Body Mass Index (BMI) 48.7 Physical Exam Const alert, oriented x3, no apparent distress and healthy appearing General Appearance: cooperative; Negative for anxious HEENT normocephalic Face and Sinus: normal facial exam Eyes EOMs intact bilaterally and no scleral icterus General Eye: normal appearance of both eyes Neck full ROM and supple Lymph Lymphatic: no lymphadenopathy noted Chest Chest: symmetrical chest wall rise Resp normal respiratory effort Effort and Inspection: able to speak in complete sentences Cardio regular rate GI soft to palpation and non-tender Inspection: gravid Palpation: soft; Negative for tender Back/Spine no CVA tenderness Extremity normal to inspection, full ROM and no clubbing, cyanosis or edema General Extremity: Negative for calf tenderness or edema Skin Lesions: no lesions Rashes: no rashes Psych mental status grossly normal Labs Labs Labs: Blood Type B NEGATIVE Antibody Screen NEGATIVE Hct 36.4 % (37-47) L Hgb 12.5 g/dL (12.0-15.0) Pap Smear Negative Syphilis Total Ab Nonreactive (Nonreactive) VZV IgG Antibody 1347 index (Immune >165) Rubella IgG Antibody Reactive (Nonreactive) Hep Bs Antigen Non-Reactive (Nonreactive) Hepatitis C Antibody Non-Reactive (Nonreactive) Chlamydia DNA (CONCHITA) Negative (Negative) N.gonorrhoeae DNA (CONCHITA) Negative (Negative) HIV 1&2 Antibody Nonreactive (Nonreactive) Glucose 1 Hr 50 gm 172 mg/dL (70-140) H Gest Glucose Tolerance mg/dL Miscellaneous Test COMMENT (.) Assessment & Plan (1) GBS (group B Streptococcus carrier), +RV culture, currently : COMMENT: treat in labor (2) Abnormal glucose affecting : COMMENT: passed 3 hour gtt (3) H/O section: COMMENT: x1, 2020. desires repeat C/S: RLTCS 05/12/25 JV. (4) AMA (advanced maternal age) multigravida 35+: (5) Conceived by in vitro fertilization: COMMENT: growth and NSTs at 36 weeks. deliver by 39. Transferred male embryo - embryo tested (6) Family history of genetic disorder: COMMENT: FOB w/ Shaw Muscular Dystrophy (X Chromosome linked) FOB adopted with limited medical history (7) Marijuana use: COMMENT: Last use: May 2024; Pt informed of random tox screens (8) Obesity affecting : COMMENT: BMI 47.5; twice weekly BPPs at 34 weeks-HgBA1C ordered (9) Rh negative status during : COMMENT: B-, Needs Rhogam @ 28 weeks (10) Supervision of high-risk : COMMENT: PRR, , ANTONIO 05/19/25,boy PC: Larry, : [place] (11) : QUALIFIERS: Weeks of gestation: 38 weeks Qualified Code(s): Z3A.38 - 38 weeks gestation of COMMENT: Discussed genetic/carrier testing - declines d/t embryo tested prior to transfer, nl anatomy. echo normal. (12) Sleep apnea: (13) Infertility associated with anovulation: (14) GERD (gastroesophageal reflux disease): QUALIFIERS: Esophagitis presence: without esophagitis Qualified Code(s): K21.9 - Gastro-esophageal reflux disease without esophagitis (15) Depression with anxiety: (16) PCOS (polycystic ovarian syndrome): PLAN: Plan After discussing the patient's diagnosis and treatment plan options, patient wishes to proceed with surgical management. I have discussed with the patient the risks, benefits, and alternatives of the procedure which include but are not limited to risks of anesthesia, bleeding, infection, possible damage to bowel, bladder, or surrounding vasculature which could lead to additional surgery to evaluate any complications. Patient agrees to procedure and wishes to proceed. ACOG/uptodate references given for additional information regarding procedure. plan for repeat section. due to BMI she will not be a candidate for duramorph. we will perform a tap block with exparel
--- NOTE | 2025-05-12 07:19 | DCINST_ITS ---
Discharge Instructions DC O2, CPAP, BIPAP needs Home O2 Discharge instructions: No Dressing / Incision Discharge Activity: May Not Drive (for 2 weeks or while taking narcotic pain medications.), May Shower and May Take a Tub Bath (in 7 days.) May resume sexual activity in: 4-6 weeks Weight Bearing Status: Full weight bearing Lifting Restrictions: 20 pounds Dressing / Incision Call your doctor if your incision/area has: Continuous Slow Oozing, Sudden Increased Bleeding, Increased Pain/ Swelling, Increased Redness and Foul Smelling Discharge Call your doctor if you observe: Fever of 101 or Higher and Using more than 1 pad per hour Suture Line Care: Avoid Pulling/Pushing and Avoid Pinching/Bending Cleanse incision/area with: Soap & Water and Keep Dressing Clean & Dry Follow Up Care Please Follow Up With: Edel Bullock DO When: Call [phone] to make an appointment for an incision check in 1-2 weeks. Test Results: Test results from this visit will be discussed in further detail at your follow- up appointment, if applicable. Discharge Plan Admission Admit Date/Time: 05/12/25 05:52 Primary Reason for Your Visit: section Attending Provider: Edel Bullock Primary Care Provider: Lakesha Eisenberg Discharge Orders/Prescriptions Prescriptions: No Action escitalopram oxalate [Lexapro] 10 mg tablet 10 mg PO DAILY Qty: 30 5RF (DME) breast pump Device See Rx Instructions .ROUTE .MEDSUPPLY Qty: 1 0RF Rx Instructions: As directed aspirin 81 mg tablet 81 mg PO DAILY magnesium 200 mg tablet 200 mg PO DAILY DHA 200 mg capsule 200 mg PO DAILY Qty: 90 4RF levothyroxine [Synthroid] 25 mcg tablet 25 mcg PO QDAY Qty: 90 4RF famotidine [Pepcid] 40 mg tablet 40 mg PO DAILY Qty: 30 5RF Referrals / Follow Up: Lakesha Eisenberg MD [Primary Care Provider] - Disposition Disposition (needs filled in before D/C Order can be placed): Home, Self Care
[2025-05-12] MEDS: Cefazolin 2 GM in 0.9% Normal Saline (100mL Bag) 100 ML IV (07:50)
[2025-05-12] MEDS: Cefazolin 1 GM/5 ML Vial 3 GM IV (07:50)
[2025-05-12 08:01] LABS: Barbiturate Urine NEGATIVE (< 200 ng/mL); Benzodiazepine Urine NEGATIVE (< 200 ng/mL); PCP Urine NEGATIVE (< 25 ng/mL); THC Urine NEGATIVE (< 50 ng/mL)
[2025-05-12] MEDS: BUPIVACAINE LIPOSOME/PF 20 ML VIAL OPERA.SITE (08:27)
[2025-05-12] MEDS: Oxytocin 15 Units/NS 250ml 15 UNITS/250 ML IV.SOLN 83 UNITS IV (09:05)
--- NOTE | 2025-05-12 09:20 | EX.PCM.OBRPT ---
Assessment & Plan (1) GBS (group B Streptococcus carrier), +RV culture, currently : COMMENT: treat in labor (2) Itching: (3) Abnormal glucose affecting : COMMENT: passed 3 hour gtt (4) H/O section: COMMENT: x1, 2020. desires repeat C/S: RLTCS 05/12/25 JV. (5) AMA (advanced maternal age) multigravida 35+: (6) Conceived by in vitro fertilization: COMMENT: growth and NSTs at 36 weeks. deliver by 39. Transferred male embryo - embryo tested (7) Family history of genetic disorder: COMMENT: FOB w/ Shaw Muscular Dystrophy (X Chromosome linked) FOB adopted with limited medical history (8) Obesity affecting : COMMENT: BMI 47.5; twice weekly BPPs at 34 weeks-HgBA1C ordered (9) Rh negative status during : COMMENT: B-, Needs Rhogam @ 28 weeks (10) Supervision of high-risk : COMMENT: PRR, , ANTONIO 05/19/25,boy PC: Larry, : [place] (11) : QUALIFIERS: Weeks of gestation: 38 weeks Qualified Code(s): Z3A.38 - 38 weeks gestation of COMMENT: Discussed genetic/carrier testing - declines d/t embryo tested prior to transfer, nl anatomy. echo normal. (12) Sleep apnea: (13) Infertility associated with anovulation: (14) GERD (gastroesophageal reflux disease): QUALIFIERS: Esophagitis presence: without esophagitis Qualified Code(s): K21.9 - Gastro-esophageal reflux disease without esophagitis (15) Depression with anxiety: (16) PCOS (polycystic ovarian syndrome): Maternal Data Information ANTONIO Calculator Estimated Delivery Date Method Current WG Current Estimate 05/19/25 Conception 39w 0d Gestational age: 39 weeks Operative Report (OB) Details Procedure Type: low transverse Date of Procedure: 05/12/25 Procedure Start Time: 08:09 Procedure Stop Time: 08:48 Pre-Operative Diagnosis: Repeat Elective Post-Operative Diagnosis: Same as Pre-operative diagnosis Classification: Scheduled Type of Anesthesia: Spinal Special Medications: exparel 20 ml + 30 ml of bupivacaine Antibiotic Given: Ancef 3 grams IV x1 Drain: Disla to straight drain Estimated Blood Loss: 500cc Findings Description of surgery: The patient is a [34 y/o @ 3 9weeks presented for repeat . Spinal anesthesia was placed without difficulty. Disla catheter was placed. The patient was placed in the dorsal supine position with leftward tilt. Patient was prepped and draped in the normal sterile fashion. Pfannenstiel skin incision was made with the scalpel and carried through to the underlying layer of fascia with the scalpel. Fascia was nicked in the midline and the incision extended laterally. The rectus bellies were dissected off superiorly and inferiorly with out complication both sharply and bluntly. The peritoneum was entered digitally. The incision was stretched and a low transverse uterine incision was made with the scalpel. The 's head was delivered atraumatically followed by the anterior and posterior shoulders without complication the rest of the delivered. The cord was clamped and cut and the infant was handed off to awaiting nurse. The placenta was delivered spontaneously immediately following and was noted to be intact and have a three-vessel cord. The uterus was exteriorized cleared of all clots and debris, and the incision was closed in a double layer closure using #1 Vicryl and #1 Monocryl. The ovaries and fallopian tubes were noted to be within normal limits. The uterus was returned to the maternal abdomen and gutters were cleared of all clots and debris. The peritoneum was closed with 3-0 Monocryl in a running fashion. Exparel + bupivicaine 20ml + 30 ml was injected into the fascia and muscle. Fascia was closed with 0 PDS in a running fashion. Subcutaneous tissue was copiously irrigated and the skin was closed with 3-0 Monocryl in a subcuticular fashion. Mepilex dressing was applied without complication. Patient was taken to recovery in stable condition. It was discussed with the patient that based on the clinical information obtained during this encounter, combined with her history, at this time I would recommend for future deliveries if further pregnancies are desired. Surgical findings: viable male . name undecided. 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
[2025-05-12] MEDS: 0.9% Saline Lock 10 ML Syringe IV ×3 (09:48→20:25)
[2025-05-12] MEDS: Ketorolac 30 MG/ML Syringe IV ×3 (09:48→20:25)
[2025-05-12] MEDS: Senna/Docusate Sodium 1 Tablet PO (12:40)
[2025-05-12] MEDS: Rho(D) Immune Globulin 300 MCG (1500 Unit) Syringe IV (18:25)
[2025-05-13 00:34] VITALS: BP 113/68; PULSE 68; RESP 15; TEMP 36.4; O2SAT 98
[2025-05-13 03:55] VITALS: BP 121/73; PULSE 73; RESP 14; TEMP 36.7; O2SAT 97
[2025-05-13] MEDS: Ketorolac 30 MG/ML Syringe IV (03:57)
[2025-05-13] MEDS: 0.9% Saline Lock 10 ML Syringe IV ×2 (03:58→11:55)
[2025-05-13 04:51] LABS: Hematocrit 33.8 % (37-47); Hemoglobin 11.4 g/dL (12.0-15.0); Mean Corp Hgb Conc 33.7 g/dL (32-36); Mean Corpuscular Volume 87.1 fL (81-99); Mean Platelet Vol. 9.6 fl (6.2-12.0); Platelet Count 228 K/mm3 (150-450); RBC Distribution Width CV 13.6 % (11.6-14.6); RBC Distribution Width SD 43.1 fl (35.1-43.9); Red Blood Count 3.88 M/mm3 (4.2-5.4); White Blood Count 15.0 K/mm3 (4.4-11.0)
[2025-05-13 08:40] VITALS: BP 110/60; PULSE 90; RESP 18; TEMP 36.4; O2SAT 99
[2025-05-13] MEDS: Senna/Docusate Sodium 1 Tablet PO (09:59)
[2025-05-13] MEDS: Rho(D) Immune Globulin 300 MCG (1500 Unit) Syringe IV (11:57)
[2025-05-13 14:45] VITALS: BP 102/63; PULSE 89; RESP 16; TEMP 36.7; O2SAT 100
[2025-05-13] MEDS: Lactated Ringers 1,000 ML 999 ML IV (17:40)
[2025-05-13] MEDS: Oxytocin 15 Units/NS 250ml 15 UNITS/250 ML IV.SOLN 999 UNITS IV (17:40)
[2025-05-13 18:06] LABS: Hematocrit 33.9 % (37-47); Hemoglobin 11.5 g/dL (12.0-15.0); Immature Granulocytes Count 0.170 X10^3/uL (0.0-0.0); Mean Corp Hgb Conc 33.9 g/dL (32-36); Mean Corpuscular Volume 87.4 fL (81-99); Mean Platelet Vol. 9.7 fl (6.2-12.0); NRBC Flagged by Analyzer 0 % (0-5); Platelet Count 299 K/mm3 (150-450); RBC Distribution Width CV 13.6 % (11.6-14.6); RBC Distribution Width SD 43.1 fl (35.1-43.9); Red Blood Count 3.88 M/mm3 (4.2-5.4); White Blood Count 16.9 K/mm3 (4.4-11.0)
--- NOTE | 2025-05-13 18:07 | PCM.PN.BLA ---
Progress Note Patient evaluated due to passing large clot and near syncopal episode in the bathroom. Initial borderline hypotension and passed a large clot of unknown size due to it being in the toilet. Patient feeling very dizzy and lightheaded vital signs 130/97 heart rate in the low 100s. Stat labs sent and hemoglobin stable once patient was evaluated in the bed some clots seen within the uterine cavity vaginal evacuation performed and small clots removed bleeding minimal vital signs stable with a MAP of 72 and heart rate in the 80s. Patient feeling better. IV fluids given Methergine and Pitocin given. Will continue to monitor with expectant management at this time suspect vasovagal episode due to passing large clot.
--- NOTE | 2025-05-13 18:12 | PCM.PN.OB ---
Subjective Subjective LATE ENTRY- patient seent at 8:50 this am Patient doing well without complaints. Tolerating PO. Ambulating and voiding without difficulty. Feeding well. Denies chest pain, shortness of breath, calf pain/swelling, fevers, chills, lightheadedness. Objective Data Objective Data Vital Signs: Vital Signs Temp Pulse Resp BP Pulse Ox O2 Del Method 98.1 F 89 16 102/63 100 Room Air 05/13/25 14:45 05/13/25 14:45 05/13/25 14:45 05/13/25 14:45 05/13/25 14:45 05/13/25 14:45 Oxygen Delivery Method Room Air Weight: 266 lb 12.149 oz Body Mass Index (BMI) 48.7 Intake & Output: Intake and Output for Last 24 Hours 05/11/25 05/12/25 05/13/25 23:59 23:59 23:59 Intake Total 1410 / 1410 Output Total 700 / 700 500 / 500 Balance 710 / 710 -500 / -500 Lab / Micro Data 05/13/25 17:35 Labs: Laboratory Results - last 24 hr 05/12/25 : Roxana Agudelo Hgb POSITIVE H 05/13/25 04:42: WBC 15.0 H, RBC 3.88 L, Hgb 11.4 L, Hct 33.8 L, MCV 87.1, MCH 29.4, MCHC 33.7, RDW Std Deviation 43.1, RDW Coeff of Tanner 13.6, Plt Count 228, MPV 9.6 05/13/25 17:35: WBC 16.9 H, RBC 3.88 L, Hgb 11.5 L, Hct 33.9 L, MCV 87.4, MCH 29.6, MCHC 33.9, RDW Std Deviation 43.1, RDW Coeff of Tanner 13.6, Plt Count 299, MPV 9.7, Immature Gran % (Auto) 1.000 H, Neut % (Auto) 74.0 H, Lymph % (Auto) 17.1 L, [place] % (Auto) 6.6, Eos % (Auto) 0.9, Baso % (Auto) 0.4, Absolute Neuts (auto) 12.5 H, Absolute Lymphs (auto) 2.88, Nucleated RBC % 0 ROS Constitutional Constitutional: Reports systems reviewed and no addt'l complaints, except as documented Cardiovascular Cardiovascular: Reports systems reviewed and no addt'l complaints, except as documented Respiratory/Chest Respiratory/Chest: Reports systems reviewed and no addt'l complaints, except as documented Gastrointestinal Gastrointestinal: Reports systems reviewed and no addt'l complaints, except as documented Physical Exam Const alert, oriented x3 and no apparent distress HEENT Head and Scalp: atraumatic Resp normal respiratory effort GI soft to palpation and non-tender Inspection: incision intact, healing well and drainage (none) Bimanual Exam - Vag & Uterus: uterus non-tender Uterus Palpation: uterus fundus firm (below Umbilicus) Assessment & Plan (1) S/P : PLAN: Plan s/p LTCS PPD # 1 1. routine post care 2. breast feeding- support given 3. rh neg rhogam given 4. rubella immune
[2025-05-13 18:48] LABS: Prothrombin Time (Protime)PT. 12.8 SECONDS (11.7-14.9)
[2025-05-13 18:49] LABS: Partial Thromboplast Time 22.8 Seconds (24.1-36.2)
[2025-05-13 18:50] LABS: Fibrinogen 422 mg/dl (203-444)
[2025-05-13 20:24] VITALS: BP 114/56; PULSE 100; RESP 16; TEMP 37; O2SAT 100
[2025-05-14 03:04] VITALS: BP 139/83; PULSE 85; RESP 16; TEMP 36.7; O2SAT 98
[2025-05-14 07:42] VITALS: BP 125/67; PULSE 84; RESP 16; TEMP 36.4; O2SAT 99
--- NOTE | 2025-05-14 08:28 | PN.OBGYN_ITS ---
Subjective Subjective Patient doing well without complaints. Tolerating PO. Ambulating and voiding without difficulty. Feeding well. Denies chest pain, shortness of breath, calf pain/swelling, fevers, chills, lightheadedness. Objective Data Objective Data Vital Signs: Vital Signs Temp Pulse Resp BP Pulse Ox O2 Del Method 97.6 F L 84 16 125/67 H 99 Room Air 05/14/25 07:42 05/14/25 07:42 05/14/25 07:42 05/14/25 07:42 05/14/25 07:42 05/14/25 07:42 Oxygen Delivery Method Room Air Weight: 266 lb 12.149 oz Body Mass Index (BMI) 48.7 Intake & Output: Intake and Output for Last 24 Hours 05/12/25 05/13/25 05/14/25 23:59 23:59 23:59 Intake Total 1410 / 1410 1250 / 1250 Output Total 700 / 700 500 / 500 Balance 710 / 710 750 / 750 Lab / Micro Data 05/13/25 17:35 Labs: Laboratory Results - last 24 hr 05/12/25 : Roxana Agudelo Hgb POSITIVE H 05/13/25 17:35: WBC 16.9 H, RBC 3.88 L, Hgb 11.5 L, Hct 33.9 L, MCV 87.4, MCH 29.6, MCHC 33.9, RDW Std Deviation 43.1, RDW Coeff of Tanner 13.6, Plt Count 299, MPV 9.7, Immature Gran % (Auto) 1.000 H, Neut % (Auto) 74.0 H, Lymph % (Auto) 17.1 L, [place] % (Auto) 6.6, Eos % (Auto) 0.9, Baso % (Auto) 0.4, Absolute Neuts (auto) 12.5 H, Absolute Lymphs (auto) 2.88, Nucleated RBC % 0, PT 12.8, INR 1.0, APTT 22.8 L, Fibrinogen 422 Physical Exam Const alert, oriented x3 and no apparent distress HEENT Head and Scalp: atraumatic Resp normal respiratory effort GI soft to palpation and non-tender Inspection: incision intact, healing well and drainage (none) Bimanual Exam - Vag & Uterus: uterus non-tender Uterus Palpation: uterus fundus firm (below Umbilicus) Assessment & Plan (1) S/P : (2) AMA (advanced maternal age) multigravida 35+: (3) GBS (group B Streptococcus carrier), +RV culture, currently : COMMENT: treat in labor PLAN: Plan s/p LTCS PPD # 2 s/p large clots yesterday, no further excessive bleeding. VSS 1. routine post care 2. breast feeding- support given 3. rh negative 4. rubella immune
[2025-05-14] MEDS: Senna/Docusate Sodium 1 Tablet PO (10:03)
--- NOTE | 2025-05-14 12:56 | CASEMGMT ---
Social Work Assessment Labor and Delivery Unit Patient Address: [address] [place] [address] [place] [address] Phone number: [phone] Date of Referral: 05/13/25 Time of Referral:? 925 Referred By: Dr. Lao Date of Intervention: ??05/14/25 Time of Intervention:?1319 Reason for Referral: anxiety, depression, PTSD Sw completed chart review and acknowledges social work consult due to maternal mental health history. Sw presented to bedside and introduced self to mother of baby (CAITIE Hollins). Also present was maternal grandmother, MOB stated that it was okay to continue assessment with grandma present. Sw explained reason for sw involvement and completed psychosocial assessment. ? History obtained from: medical records, MOB Household composition: Currently residing in the family home is MOB, father of baby (MARIELA Cole), their older son- Larry (4). [place] baby to be included in residence when ready for discharge. RASHEEDA denies any problems or concerns with housing, stating that it is safe and secure. Patient's parent/guardian status:? ?MOB states that she and TAURUS met online and have been together for 12 years and have been for 5. No concerns reported regarding domestic violence or intimate partner violence. [place] baby is second child for parents together. Medical History: ?RASHEEDA is 34 year old female who is 2, para 1- now 2 following labor and delivery of . RASHEEDA received routine care during with [facility] beginning in first trimester. was produced via IVF. RASHEEDA delivered baby via repeat on 05/12/25 at 39 weeks gestation. Baby boy, named Joo John, was born weighing 7lb 7oz with apgars of 8 and 9 at one and five minutes of life, respectfully. RASHEEDA is breast feeding and states that baby will be followed by Dr. Adams for pediatrics. Educational Status:?Both parents obtained their Bachelor's degrees, no problems with reading, learning or comprehension. Financial Status: TAURUS is employed working for [employer], he works from home. 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 Supplies:?? All necessary baby supplies obtained, including: car seat, safe sleep space, clothes, diapers and wipes. Childcare/Caregiver(s):? MOB will be the primary caregiver, along with FOScotty when he is not working. Transportation:?? Both parents have their drivers license and reliable means of transportation, no barriers. Programs/Agencies Involved: ?Parents are over income for community agencies that provide financial assistance. ?? Children Services/Legal Issues:???No prior involvement with children services, no issues or concerns warranting referral to be made at this time. Behavioral Health Issues: ??Mental Health History:??MOB states that TAURUS does not have any mental health history. MOB reports that she has been diagnosed with anxiety and depression and has experienced following the delivery of her first son. MOB reports to be connected to mental health community supports. She is also prescribed Lexapro by her PCP. MOB states that she also has some PTSD following the delivery of her first son. MOB states that when her first son was born her delivery was complicated, resulted in an emergent and she has to be under general anesthesia. MOB states that she has been anxious prior to this delivery, during surgery and now after surgery. MOB states that following her delivery, she was going to the restroom when she passed a small clot and then had syncope. Patient states that as a result she is anxious to be discharged. Sw encouraged RASHEEDA to have a discussion about her concerns with her OBGYN. ? Substance Use History:? MOB denies substance use prior to and during . ? Family History:??MOB denies family history of addiction or significant mental health history. ??? Drug Screens: ??No drug screens observed while completing chart review. Family/Social Stressors:? MOB states that the only concerns she has at this time is preparing for discharge. MOB states that she is eager to be home, however it makes her nervous due to the clot that she passed yesterday and then passing out. MOB states that she only wants to be discharged after being assured that it will not happen when she is at home. MOB agreed that this is a conversation she needs to have with her OBGYN provider, and states that she will do so in the morning. Support Systems: MOB states that her mom and paternal grandparents are her biggest supports. Depression/Shaken Baby/Safe Sleeping:? Guillermo educated MOB on signs and symptoms of baby blues and depression and anxiety. MOB states that after her first son was born she was anxious and cried a lot. MOB states that due to her delivery experience she has been really nervous to go through labor and delivery again. MOB states that she is also anxious now that she passed out yesterday. MOB reports that she can tell a difference with her medication, and feels supported by her counselor. MOB states that if she were to struggle with her mental health during this period she would feel comfortable talking to FOB or her mom about what she is experiencing. MOB states that FOB would also be able to recognize if she were struggling and would know how to help and support her. Sw educated MOB on shaken baby prevention and ABCs of safe sleep, MOB expressed understanding. ASSESSMENT:? MOB and baby admitted following labor and delivery of . MOB with mental health history positive for anxiety, depression and PTSD. RASHEEDA's PTSD is in relation to her first labor and delivery experience with her first son, which required an emergency for which she was under general anesthesia. MOB states that this was much more smoothly, and thankful that she did not have to labor and then have surgery, hopeful that recovery will be more smooth. MOB states that she has healthy and safe coping skills that she will use during this period. MOB was talkative and engaging throughout completion of assessment. MOB was observed sitting comfortably on couch while maternal grandma was holding and comforting baby. Grandma was holding baby lovingly and providing appropriate hands on care. MOB reports to having all necessary baby items and has natural supports in place. PLAN:? No other services requested or indicated. MOB and baby to be discharged when medically ready. Parents were provided literature regarding: signs and symptoms of baby blues and mood and anxiety disorders, Help Me Grow, shaken baby prevention, ABCs of safe sleep and a list of county resources that are available for them should any needs present themselves. Fernando Hsu, ADMINISTRATIVE SECRETARY, [employer]
[2025-05-14 14:59] VITALS: BP 112/82; PULSE 101; RESP 16; TEMP 36.7; O2SAT 99
[2025-05-14 20:14] VITALS: BP 122/74; PULSE 79; RESP 16; TEMP 36.6; O2SAT 98
[2025-05-15 02:03] VITALS: BP 112/57; PULSE 79; RESP 16; TEMP 36.1; O2SAT 99
--- NOTE | 2025-05-15 08:40 | PCM.PN.CNM ---
Subjective Subjective Patient doing well without complaints. Tolerating PO. Ambulating and voiding without difficulty. Feeding well. Denies chest pain, shortness of breath, calf pain/swelling, fevers, chills, lightheadedness. Objective Data Objective Data Vital Signs: Vital Signs Temp Pulse Resp BP Pulse Ox O2 Del Method 97.0 F L 79 16 112/57 L 99 Room Air 05/15/25 02:03 05/15/25 02:03 05/15/25 02:03 05/15/25 02:03 05/15/25 02:03 05/15/25 02:03 Oxygen Delivery Method Room Air Weight: 266 lb 12.149 oz Body Mass Index (BMI) 48.7 Intake & Output: Intake and Output for Last 24 Hours 05/13/25 05/14/25 05/15/25 23:59 23:59 23:59 Intake Total 1250 / 1250 Output Total 500 / 500 Balance 750 / 750 Lab / Micro Data 05/13/25 17:35 Physical Exam Const alert, oriented x3 and no apparent distress HEENT Head and Scalp: atraumatic Resp normal respiratory effort GI soft to palpation and non-tender Inspection: incision intact, healing well and drainage (none) Bimanual Exam - Vag & Uterus: uterus non-tender Uterus Palpation: uterus fundus firm (below Umbilicus) Assessment & Plan (1) S/P : (2) GBS (group B Streptococcus carrier), +RV culture, currently : COMMENT: treat in labor (3) Conceived by in vitro fertilization: COMMENT: growth and NSTs at 36 weeks. deliver by 39. Transferred male embryo - embryo tested (4) Marijuana use: COMMENT: Last use: May 2024; Pt informed of random tox screens (5) Rh negative status during : COMMENT: B-, Needs Rhogam @ 28 weeks (6) Sleep apnea: (7) Obesity affecting : COMMENT: BMI 47.5; twice weekly BPPs at 34 weeks-HgBA1C ordered (8) AMA (advanced maternal age) multigravida 35+: PLAN: Plan s/p LTCS PPD # 3 1. routine post care 2. breast feeding- support given 3. rh neg- rhogam 4. rubella immune 5. d/c home today
--- NOTE | 2025-05-15 08:42 | PCM.DC.SUM ---
Providers Date of Admission: 05/12/25 Primary Care Physician: Dr. Lakesha Eisenberg MD Reason For Visit: C SECTION/DELIVERED C SECTION Diagnosis Discharge Diagnosis (1) S/P : Status: Acute Code(s): Z98.891 - History of uterine scar from previous surgery (2) GBS (group B Streptococcus carrier), +RV culture, currently : Status: Acute Code(s): O99.820 - Streptococcus B carrier state complicating (3) Conceived by in vitro fertilization: Status: Acute Code(s): Z78.9 - Other specified health status (4) Marijuana use: Status: Acute Code(s): F12.90 - Cannabis use, unspecified, uncomplicated (5) Rh negative status during : Status: Acute Code(s): O26.899 - Other specified related conditions, unspecified trimester; Z67.91 - Unspecified blood type, Rh negative (6) Sleep apnea: Status: Acute Code(s): G47.30 - Sleep apnea, unspecified (7) Obesity affecting : Status: Acute Code(s): O99.210 - Obesity complicating , unspecified trimester (8) AMA (advanced maternal age) multigravida 35+: Status: Acute Code(s): O09.529 - Supervision of elderly multigravida, unspecified trimester Plan s/p LTCS PPD # 3 1. routine post care 2. breast feeding- support given 3. rh neg- rhogam 4. rubella immune 5. d/c home today Medications at Discharge Home Medications escitalopram oxalate 10 mg tablet (Lexapro) 10 mg PO DAILY anxiety/depression #30 tabs 07/20/24 docosahexaenoic acid 200 mg capsule ( DHA) 200 mg PO DAILY #90 caps 07/28/24 levothyroxine 25 mcg tablet (Synthroid) 25 mcg PO QDAY hypothyroidism #90 tabs 10/14/24 famotidine 40 mg tablet (Pepcid) 40 mg PO DAILY indigestion #30 tabs 01/11/25 breast pump #1 ea 01/29/25 aspirin 81 mg tablet 81 mg PO DAILY 04/19/25 magnesium 200 mg tablet 200 mg PO DAILY muscle spasm 04/19/25 ibuprofen 800 mg tablet 800 mg PO Q8H PRN pain #30 tabs 05/12/25 oxycodone-acetaminophen 5 mg-325 mg tablet (Percocet) 1 tab PO Q4H PRN pain 7 days #20 tabs 05/12/25 Hospital Course Operations section Summary of Care Provided Hospital Course: at 39 weeks for repeat c/s, had x1 episode of vasovagal response without further dizziness/lightheadness/sob. vss. routine pp course. Weight / BMI Weight Weight: 266 lb 12.149 oz Body Mass Index (BMI) 48.7 ABG / Lab / Microbiology Data 05/13/25 17:35 D/C Instructions May resume sexual activity in: 4-6 weeks Weight Bearing Status: Full weight bearing Call your doctor if your incision/area has: Continuous Slow Oozing, Sudden Increased Bleeding, Increased Pain/ Swelling, Increased Redness and Foul Smelling Discharge Call your doctor if you observe: Fever of 101 or Higher and Using more than 1 pad per hour Suture Line Care: Avoid Pulling/Pushing and Avoid Pinching/Bending Cleanse incision/area with: Soap & Water and Keep Dressing Clean & Dry DC O2, CPAP, BIPAP Needs Home O2 Discharge instructions: No DC home with Oxygen: No Please Follow Up With: Edel Bullock, When: Call [phone] to make an appointment for an incision check in 1-2 weeks. Meaningful Use Info Meaningful Use Meaningful Use Diagnoses (Choose all that apply): None applicable Discharge Plan Admission Admit Date/Time: 05/12/25 05:52 Primary Reason for Your Visit: section Attending Provider: Edel Bullock Primary Care Provider: Lakesha Eisenberg Instructions Patient Instructions: After a Delivery (WP) Discharge Orders/Prescriptions Prescriptions: New ibuprofen 800 mg tablet 800 mg PO Q8H PRN (Reason: pain) Qty: 30 0RF oxycodone-acetaminophen [Percocet] 5-325 mg tablet 1 tab PO Q4H PRN (Reason: pain) 7 Days Qty: 20 0RF No Action escitalopram oxalate [Lexapro] 10 mg tablet 10 mg PO DAILY Qty: 30 5RF (DME) breast pump Device See Rx Instructions .ROUTE .MEDSUPPLY Qty: 1 0RF Rx Instructions: As directed aspirin 81 mg tablet 81 mg PO DAILY magnesium 200 mg tablet 200 mg PO DAILY DHA 200 mg capsule 200 mg PO DAILY Qty: 90 4RF levothyroxine [Synthroid] 25 mcg tablet 25 mcg PO QDAY Qty: 90 4RF famotidine [Pepcid] 40 mg tablet 40 mg PO DAILY Qty: 30 5RF Referrals / Follow Up: Lakesha Eisenberg MD [Primary Care Provider] - Disposition Disposition (needs filled in before D/C Order can be placed): Home, Self Care
[2025-05-15 09:06] VITALS: BP 108/53; PULSE 117; RESP 18; TEMP 36.4; O2SAT 97
[2025-05-15 09:30] VITALS: BP 99/59; PULSE 108; RESP 16; O2SAT 100
[2025-05-15] MEDS: Senna/Docusate Sodium 1 Tablet PO (11:37)
[2025-05-15 13:15] VITALS: BP 115/62; PULSE 107; RESP 16; TEMP 36.9; O2SAT 98
== END 2025-05-15 14:25 | disposition home or self-care (01) | DRG 787 ==
PROVIDERS: Obstetrics & Gynecology; Admitting Provider Obstetrics & Gynecology; PCP Internal Medicine; Referring Provider Obstetrics & Gynecology; Visit Provider Obstetrics & Gynecology
PROC: 10D00Z1 Extraction of Products of Conception, Low, Open Approach (ICD-10-PCS; CPT 59514; principal; 2025-05-12 07:00)
DX: O34.211 Maternal care for low transverse scar from previous cesarean delivery (principal); O99.354 Diseases of the nervous system complicating childbirth; O99.324 Drug use complicating childbirth; O99.214 Obesity complicating childbirth; E28.2 Polycystic ovarian syndrome; K21.9 Gastro-esophageal reflux disease without esophagitis; G47.30 Sleep apnea, unspecified; F41.8 Other specified anxiety disorders; F12.90 Cannabis use, unspecified, uncomplicated; Z87.891 Personal history of nicotine dependence; O99.824 Streptococcus B carrier state complicating childbirth; Z37.0 Single live birth; Z3A.39 39 weeks gestation of pregnancy; O99.62 Diseases of the digestive system complicating childbirth; Z79.890 Hormone replacement therapy; O99.344 Other mental disorders complicating childbirth; Z79.82 Long term (current) use of aspirin; O99.284 Endocrine, nutritional and metabolic diseases complicating childbirth; Z84.81 Family history of carrier of genetic disease; O99.893 Other specified diseases and conditions complicating puerperium; R55 Syncope and collapse; Z90.49 Acquired absence of other specified parts of digestive tract
CPT/HCPCS: 80307; 85025; 85027; 85384; 85460; 85461; 85610; 85730; 86780; 86850; 86900; 86901; 90384; 99221; A4216; G0378; J0666; J2405; J2790; J2791

== ENCOUNTER 2025-05-24 13:53 | Inpatient (IN) | payer BC, SELFPAY ==
[2025-05-24] VITALS (14 sets, daily range): BP systolic 110–153; BP diastolic 53–99; PULSE 112–168; RESP 15–27; TEMP 36.9–38.4; O2SAT 97–100; BMI 47.7; BMI 47.2
--- NOTE | 2025-05-24 14:12 | ED.RN ---
chills started at 0930, fever started at 1230. tylenol taken at 1200 for chills. live 12 days ago via c section. surical incision is well approximated, no redness or drainage at site.
--- NOTE | 2025-05-24 14:30 | EKG12_ITS ---
Test Reason : HIGH HR Blood Pressure : */* mmHG Vent. Rate : 147 BPM Atrial Rate : 147 BPM P-R Int : 118 ms QRS Dur : 66 ms QT Int : 282 ms P-R-T Axes : 78 53 -18 degrees QTcB Int : 441 ms Critical Test Result: High HR Sinus tachycardia Nonspecific ST abnormality Abnormal QRS-T angle, consider primary T wave abnormality Abnormal ECG When compared with ECG of 10-Nov-2024 20:35, No significant change was found Confirmed by VITOR VIRAMONTES ([id number]), scientific editor DAYNE HOGAN ([id number]) on 05/26/2025 1:58:15 PM Referred By: Confirmed By: VITOR VIRAMONTES
--- NOTE | 2025-05-24 14:33 | EX.ED.DYSGE1 ---
HPI History of Present Illness Chief Complaint: Fever [facility] Medical History (Updated 05/24/25 @ 18:[address] Pee Sargent, DO) PCOS (polycystic ovarian syndrome) Infertility Depression with anxiety GERD (gastroesophageal reflux disease) Home Medications ?Medication ?Instructions ?Recorded ?Last Taken ?Type escitalopram oxalate 10 mg tablet 10 mg PO DAILY anxiety/depression 07/20/24 05/23/25 Rx (Lexapro) #30 tabs docosahexaenoic acid 200 mg 200 mg PO DAILY #90 caps 07/28/24 05/23/25 Rx capsule ( DHA) famotidine 40 mg tablet (Pepcid) 40 mg PO DAILY indigestion #30 tabs 01/11/25 05/23/25 Rx breast pump #1 ea 01/29/25 Unknown Rx ibuprofen 800 mg tablet 800 mg PO Q8H PRN pain #30 tabs 05/12/25 05/24/25 Rx acetaminophen 500 mg capsule 1,000 mg PO Q6H PRN fever or pain 05/24/25 05/24/25 History Allergy/AdvReac Type Severity Reaction Status Date / Time No Known Allergies Allergy Verified 05/12/25 06:30 Family History Mother Hypertension Grandfather Heart disease Hypertension Diabetes Cancer Macular degeneration Grandmother Macular degeneration Surgical History (Updated 05/24/25 @ 18:[address] Pee Sargent, DO) H/O successful vaginal after , currently H/O section History of surgical procedure S/P cholecystectomy S/P S/P wisdom tooth extraction Social History adopted: No household members: spouse and children housing: house number of children: 1 current occupational status: unemployed current occupation: [employer] current occupational exposures/hazards: No 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) pets and animals: cat(s) history of recent travel: Yes ([place] for IVF) out of state: Yes sexually active: Yes Smoking Status: Former smoker quit date: 09/30/21 alcohol intake: current alcohol intake frequency: holidays/special occasions only details: Not while substance use type: former substance user Date of last use: Sept 2024 and marijuana diet: vegetarian well-balanced diet: about half the time caffeine: Yes Type: carbonated beverages Number of servings: 1 eating out: 4 or more times/week during the past year weight has: remained stable what type of physical activity do you participate in: none landon/restorationist: None seatbelt use: always do you feel safe at home: Yes additional social history: : [employer] (works from home) EXAM Physical Exam Const Vital Signs: 05/24/25 13:55 05/24/25 13:56 05/24/25 14:08 Temperature 101.2 F H 100.4 F H Temperature Source Oral Oral Pulse Rate 168 H 135 H Respiratory Rate 22 H 25 H Respiratory Effort Normal Respiratory Pattern Normal Blood Pressure 138/94 H 151/76 H Blood Pressure Mean 108 101 Pulse Ox 98 99 Oxygen Delivery Method Room Air Room Air 05/24/25 14:31 05/24/25 14:59 05/24/25 15:00 Temperature 100.1 F H 99.6 F H Temperature Source Oral Oral Pulse Rate 138 H 122 H Respiratory Rate 26 H 27 H Respiratory Effort Respiratory Pattern Blood Pressure 153/75 H 110/53 L Blood Pressure Mean 101 72 Pulse Ox 98 97 98 Oxygen Delivery Method Room Air Room Air Room Air 05/24/25 16:00 05/24/25 17:04 05/24/25 18:22 Temperature 99.6 F H 99.1 F 98.6 F Temperature Source Oral Oral Oral Pulse Rate 129 H 121 H 125 H Respiratory Rate 20 H 27 H 20 H Respiratory Effort Respiratory Pattern Blood Pressure 133/71 H 117/74 120/76 Blood Pressure Mean 91 88 90 Pulse Ox 99 97 99 Oxygen Delivery Method Room Air Room Air Room Air 05/24/25 18:25 Temperature 98.6 F Temperature Source Pulse Rate 125 H Respiratory Rate 20 H Respiratory Effort Respiratory Pattern Blood Pressure 120/76 Blood Pressure Mean 90 Pulse Ox 99 Oxygen Delivery Method MDM MDM MDM Narrative Medical decision making narrative: Differential diagnosis includes pneumonia, bronchitis, pulmonary embolism, postoperative infection, dehydration, electrolyte abnormality, urinary tract infection, sepsis, and anxiety. CT of the chest will be obtained to assess for pulmonary embolism and pneumonia. CT scan of the abdomen pelvis will be obtained to assess for postoperative infection, bowel obstruction, perforation, and pyelonephritis. CBC will be obtained to assess for leukocytosis and anemia. Basic metabolic profile will be obtained to assess for electrolyte abnormality and renal function. Serum lactate will be obtained to assess for sepsis. PT with INR and PTT will be obtained to assess for coagulopathy. Urinalysis will be obtained to assess for urinary tract infection and hematuria. History & Record Review Additional record(s) reviewed:: Prior inpatient record and Prior labs Lab Data Attestation: I reviewed the patient's lab results. Lab results narrative: CBC was reviewed. There is a leukocytosis of 18.7. Hemoglobin was 9.9 and hematocrit was 29.4. Basic metabolic profile was reviewed and was essentially within normal limits. Serum lactate was reviewed and was less than 1.0. PT with INR and PTT were reviewed and were within normal limits. Urinalysis was reviewed. Occult blood was 150. Leukocyte esterase was 100. There are 0-5 white blood cells and 0-5 epithelial cells. There are 0-5 red blood cells. There is no bacteria noted. Labs: Laboratory Results - last 24 hr 05/24/25 05/24/25 14:30 15:38 WBC 18.7 H RBC 3.36 L Hgb 9.9 L Hct 29.4 L MCV 87.5 MCH 29.5 MCHC 33.7 RDW Std Deviation 42.8 RDW Coeff of Tanner 13.3 Plt Count 396 MPV 8.4 Immature Gran % (Auto) 0.600 Neut % (Auto) 89.0 H Lymph % (Auto) 4.1 L [place] % (Auto) 5.7 Eos % (Auto) 0.4 Baso % (Auto) 0.2 Absolute Neuts (auto) 16.6 H Absolute Lymphs (auto) 0.76 L Nucleated RBC % 0 PT 12.8 INR 1.0 APTT 22.5 L Sodium 142 Potassium 3.5 Chloride 111 H Carbon Dioxide 18.0 L Anion Gap 13 BUN 9 Creatinine 0.54 L Estim Creat Clear Calc 177.83 Est GFR (MDRD) Non-Af 123 BUN/Creatinine Ratio 15.9 Glucose 105 H Lactic Acid < 1.0 Calcium 7.7 Urine Color Yellow Urine Clarity Clear Urine pH 7.0 Ur Specific Queen 1.005 Urine Protein 15 H Urine Glucose (UA) Normal Urine Ketones Negative Urine Occult Blood 150 H Urine Nitrite Negative Urine Bilirubin Negative Urine Urobilinogen Normal Ur Leukocyte Esterase 100 H Urine RBC 0-5 SEEN Urine WBC 0-5 SEEN Ur Squamous Epith Cells 0-5 SEEN Urine Bacteria 0 SEEN Urine Mucus 0 SEEN Radiography Diagnostic Testing: Clinical Impression(s) from Imaging Studies Abdomen/Pelvis CT 05/24/25 15:20 IMPRESSION: post operative changes about the ventral abdomen. There is a 15 x 5 x 7 cm fluid collection at the ventral pelvis soft tissues which may reflect a seroma although abscess is not entirely excluded. Heterogenous uterus likely related to recent / although endometritis not entirely excluded. Reading Location: [facility] Chest CTA 05/24/25 15:20 IMPRESSION: No evidence of pulmonary embolism. Reading Location: [facility] CT of the chest was obtained. There is no evidence of pulmonary embolism. There is no infiltrate noted. There is no pneumothorax noted. There is no evidence of aortic dissection. This was interpreted by the radiologist was also independently reviewed by myself. CT scan of the abdomen pelvis was obtained. There is postoperative changes from . There is a 15 x 5 x 7 cm fluid collection at the ventral pelvis soft tissues. This may be a seroma although abscess is not excluded. This was interpreted by the radiologist and was also independently reviewed by myself. EKG Initial EKG: Attestation: I personally reviewed and interpreted this EKG as follows: Interpretation: Sinus Tachycardia (147) and Non-Specific ST Changes Comments: EKG was obtained. On my independent interpretation, it showed a sinus tachycardia with a rate of 147. SC interval, QRS interval, and QTc intervals were all normal. [place] was normal. There are nonspecific ST-T wave changes. Prior EKG tracings: available for review Prior: Unchanged (11/10/2024) Treatment and Re-Evaluation :: Patient was given IV fluids and ibuprofen. Patient's heart rate improved from 168 to 121. Patient's temperature improved to 99.1. Patient was given a repeat bolus of normal saline. Patient was advised of her findings. Case was discussed with Kiley Jain from [facility]. She discussed the case with Dr. Power who called in. I discussed the case with her as well. She will admit the patient to her service to the medical surgical floor. Patient was started on Zosyn. Patient and spouse understood and were agreeable with the plan. All questions were answered. Discharge Plan Dx/Rx/DC Orders Clinical Impression: Soft tissue abscess, S/P , Tachycardia Disposition Disposition: Acute Care Hospital [facility]
[2025-05-24] MEDS: 0.9% Normal Saline (1000mL) 1,000 ML 1000 ML IV ×2 (14:53→17:45)
[2025-05-24 15:06] LABS: Hematocrit 29.4 % (37-47); Hemoglobin 9.9 g/dL (12.0-15.0); Immature Granulocytes Count 0.120 X10^3/uL (0.0-0.0); Mean Corp Hgb Conc 33.7 g/dL (32-36); Mean Corpuscular Volume 87.5 fL (81-99); Mean Platelet Vol. 8.4 fl (6.2-12.0); NRBC Flagged by Analyzer 0 % (0-5); Platelet Count 396 K/mm3 (150-450); RBC Distribution Width CV 13.3 % (11.6-14.6); RBC Distribution Width SD 42.8 fl (35.1-43.9); Red Blood Count 3.36 M/mm3 (4.2-5.4); White Blood Count 18.7 K/mm3 (4.4-11.0)
[2025-05-24 15:14] LABS: Partial Thromboplast Time 22.5 Seconds (24.1-36.2); Prothrombin Time (Protime)PT. 12.8 SECONDS (11.7-14.9)
--- NOTE | 2025-05-24 15:20 | CT_ITS ---
PROCEDURE: CTA CHEST W/WO CONTRAST 05/24/2025 REASON FOR EXAM: DYSPNEA, fever, and chills. Tachycardia. Approximately 10 days . Prior cholecystectomy. TECHNIQUE: CTA CHEST W/WO CONTRAST Multiplanar Sagittal and Coronal images were obtained. Isovue 370 VOLUME: 100 mL intravenous. One or more dose reduction techniques were used (e.g., Automated exposure control, adjustment of the mA and/or kV according to patient size, use of iterative reconstruction technique). RADIATION DOSE SUMMARY: DLP: 2100.94 mGy-cm. COMPARISON: None. FINDINGS: No findings of pulmonary embolism are seen. No focal infiltrate is noted. No evidence of pulmonary edema. No pleural effusion or pneumothorax is seen. No adenopathy is evident. No pericardial effusion is seen. The heart appearance is unremarkable. No thoracic aortic aneurysm is noted. The visualized upper abdomen shows prior cholecystectomy. No acute process is seen at the visualized upper abdomen. Mild thoracic spine degenerative changes are noted. CT/CTA Chest W/WO Contrast IMPRESSION: No evidence of pulmonary embolism. Reading Location: [place] [id number]
--- NOTE | 2025-05-24 15:20 | CT_ITS ---
PROCEDURE: ABDOMEN/PELVIS W IV CONT ONLY 05/24/2025 REASON FOR EXAM: FEVER, STATUS POST TECHNIQUE: ABDOMEN/PELVIS W IV CONT ONLY Coronal and Sagittal reconstruction series were provided. CONTRAST: 100 mL of Isovue 370 One or more dose reduction techniques were used (e.g., Automated exposure control, adjustment of the mA and/or kV according to patient size, use of iterative reconstruction technique. RADIATION DOSE SUMMARY: DLP: 456 mGycm COMPARISON: none FINDINGS: Limited sections of the lung bases demonstrate no focal pulmonary mass or consolidations. The liver, spleen, pancreas, and both adrenal glands demonstrate no acute findings. Hepatomegaly to 20.9 cm. The gallbladder is surgically removed. The stomach is unremarkable. The small bowel loops are not dilated. The appendix is not clearly identified, although there are no secondary signs of appendicitis. No colonic obstruction. There is no free air or significant free fluid. The kidneys are unremarkable. The urinary bladder is partially distended. Heterogenous uterus likely related to recent /. post operative changes about the vental abdomen. There is a 15 x 5 x 7 cm fluid collection at the ventral pelvis soft tissues which may reflect a seroma although abscess is not entirely excluded. No significant lymphadenopathy. The aorta and IVC demonstrate no acute findings. Visualized osseous structures demonstrate no acute abnormality. CT/Abdomen/Pelvis W IV Cont ONLY IMPRESSION: post operative changes about the ventral abdomen. There is a 15 x 5 x 7 cm fluid collection at the ventral pelvis soft tissues which may reflect a seroma although abscess is not entirely excluded. Heterogenous uterus likely related to recent / although endom etritis not entirely excluded. Reading Location: [facility]
[2025-05-24 15:46] LABS: Mucous, Urine 0 SEEN /hpf (<or=2+)
[2025-05-24 16:03] LABS: Color, Urine Yellow (Yellow); Glucose, Dipstick Normal (Normal); Ketone-Dipstick Negative (Negative); Leukocyte Esterase-Dipstick 100 /ul (Negative); Nitrite-Dipstick Negative (Negative); Occult Blood-Urine 150 /ul (Negative); Protein-Dipstick 15 mg/dl (Negative); Specific Gravity, Urine 1.005 (1.002-1.030); Urine Bilirubin Dipstick Negative (Negative)
[2025-05-24 16:03] LABS: Anion Gap 13 (5-15); BUN 9 mg/dL (4-19); BUN/Creat Ratio 15.9 RATIO (10-20); Calcium,Total 7.7 mg/dL (7.6-11.0); Carbon Dioxide 18.0 mmol/L (21.0-32.0); Chloride 111 mmol/L (98-108); Estimated Creatinine Clearance 177.83 ml/min (50-250); Glucose 105 mg/dL (70-99); Potassium 3.5 mmol/L (3.3-5.1)
[2025-05-24 17:40] LABS: Red Blood Cells-Urine 0-5 SEEN /hpf (0-5); Squamous Epithelial Cells - UA 0-5 SEEN /hpf (5-10)
--- OUTSIDE RECORDS SUMMARY | 2025-05-24 18:49 | XMS RPT_ITS | CCD ---
Author Organization [facility] [employer] Care Team Providers Care Medical Chemist Name Role Phone Marta Del Valle Unavailable Marta Liu Primary Care Provider [phone] Marta Del Valle Primary Care Provider Marta Del Valle Primary Care Provider MARTA DEL VALLE Primary Care MARLI Alexis Attending Unavailable WILL PRABHAKAR Attending Unavailable JOSH MARTATABITHA URBINAVIVIENNE Primary Care REBECA Brady Primary Care Unavailable ANDREW BURCIAGA Admitting UnavailANDREW Cardoso Attending UnavailANDREW Cardoso Referring Unavailhermes HERNANDEZ BJai JJai Admitting Unavailable POMNADINES, BJai JJai Consulting Unavailable Julissa HERNANDEZ Attending Unavailable MARTA DEL VALLEBETH [facility] Julissa Saleh Admitting Unavailable MARTA DEL VALLE Primary Care Marta Liu MD Primary Care Provider Marta Del Valle MD Primary Care Provider Faith Starkey MD Unavailable Marta Del Valle MD Primary Care Provider Lawrence Young MD Unavailable [phone] MARTA DEL VALLE Attending Unavailable MARTA DEL VALLE Primary Care Unavailable MARTA DEL VALLE Referring Unavailable DEL VALLE, MARTA E Attending [...] Attending Unavailable Dr. Edel Bullock Attending Provider SHIRA DEL VALLEIN Referring Provider Unavailable Dr. Edel Bullock Referring Provider [phone] Dr. Edel Bullock Other Provider Care Physician, No Primary Primary Care Provider Unavailable Unavailable Primary Care Provider UnavailFaith Ny MD Unavailable Marta Del Valle MD Primary Care Provider [phone] Lawrence Young MD Unavailable Steffen Eisenberg MD Primary Care Provider Generic Provider , No Assigned Pcp Primary Car e Provider [...] Care Unavailable LEVON BRAXTON Referring Unavailab le STEFFEN EISENBERG Primary Care Unavailable LEVON BRAXTON Referring Unavailab le FAINA, STEFFEN CEFERINO Primary Care Unavailable LACEYLEVON DE LA ROSA Referring Unavailab le FAINA, STEFFEN CEFERINO Primary Care Unavailable LACEYESTRELLA LEVON MARY Referring Unavailab le FAINA, STEFFEN CEFERINO Primary [...] Provider Zander WOLFE, Dr. Jaffe Attending Provider [phone] Dr. Ld Fermin MD Emergency Provider Tashia WOLFE, Dr. Chiu Attending Provider Dr. Apple Lao MD Referring Provider Dr. Steffen Eisenberg MD Primary Care Provider [phone] Dr. Steffen Eisenberg MD Referring Provider Dr. Edel Bullock DO Attending Provider Kiley Jain CNM Attending Provider [phone]) Kiley Jain CNM Referring Provider [phone]) Faina WOLFE, Dr. Crowder Primary Care Provider 1([phone]) Dr. Edel Bullock DO Referring Provider Dr. Steffen Eisenberg MD Primary Care Provider 1([phone]) Faina WOLFE, Dr. Crowder Referring Provider Twan Diehl DO, Dr. Hollingsworth Attending Provider Twan Diehl DO, Dr. Hollingsworth Other Provider 1( 30) Kiley Jain CNM Other Provider [phone] Faina WOLFE, Dr. Crowder Primary Care Provider 1( 30) Faina WOLFE, Dr. Crowder Referring Provider Tashia WOLFE, Dr. Chiu Attending Provider EDEL ROCK Referring Unavailab le FAINA, STEFEFN G Primary Care Unavailable TANNA KIMBALL Attending Unavailable SAAD BRADLEY Attending Unavailable EDEL ROCK Referring Unavailab le FAINA, STEFFEN G Primary Care Unavailable EDEL ROCK Referring Unavailab EDEL Norman Attending Unavailable FAINA, STEFFEN G Primary Care Unavailable EDEL ROCK Referring Unavailab EDEL Norman Attending Unavailable CL EISENBERGIA G Primary Care Unavailable NO PRIMARY CARE, Primary Care Unavailable OSMANI LLANES Attending Unavailable EDEL ROCK Referring Unavailab OSMANI Francisco Attending Unavailable NO PRIMARY CAREMD Primary Care Unavailable EDEL ROCK Referring Unavailab OSMANI Francisco Attending Unavailable NO PRIMARY CAREMD Primary Care Unavailable OSMANI LLANES Referring Unavailable NO PRIMARY CARE, Primary Care Unavailable EDEL ROCK Referring Unavailab SANTA Sarkar Attending Unavailable NO PRIMARY CAREMD Primary Care Unavailable EDEL ROCK Referring Unavailab SANTA Sarkar Attending Unavailable EDEL ROCK Referring Unavailab le FAINA STEFFEN G Primary Care Unavailable TANNA KIMBALL Attending Unavailable Twan Diehl DO, Dr. Hollingsworth Admit Provider [phone]) Mariana Jonas CNM Attending Provider [phone] Grandfield, Steffen Attending Unavailable Grandfield, Steffen Referring Unavailable Grandfield, Steffen Primary Care Unavailable Grandfield, Steffen Attending Unavailable Grandfield, Steffen Primary Care Unavailable Grandfield, Steffen Primary Care Unavailable Edel Bullock Referring Unavailabl e Vande Edel Diehl Attending Unavailabl e Grandfield, Steffen Primary Care Unavailable Grandfield, Steffen Referring Unavailable Edel Bullock Attending Unavailabl e Faina, Steffen Primary Care Unavailable Apple Lao Attending Unavailable Apple Lao Referring Unavailable Grandfield, Steffen Referring Unavailable Grandfield, Steffen Attending Unavailable Care Physician, No Primary Primary Care Unava ilable Grandfield, Steffen Primary Care Unavailable Edel Bullock Attending Unavailabl e Shone Edel Diehl Referring Unavailabl e Faina, Steffen Primary Care Unavailable Kiley Jain Attending Unavailable Kiley Jain Referring Unavailable Edel Bullock Consulting Unavailabl e Grandfield, Steffen Primary Care Unavailable Edel Bullock Referring Unavailabl e Vande Velrico, Edel Attending Unavailabl e Faina, Steffen Referring Unavailable Faina, Steffen Primary Care Unavailable Apple Lao Attending Unavailable Grandfield, Steffen Attending Unavailable Care Physician, No Primary Referring Unava ilable Care Physician, No Primary Primary Care Unava ilable Faina, Steffen Referring Unavailable Grandfield, Steffen Primary Care Unavailable Edel Bullock Attending Unavailabl e Faina, Steffen Referring Unavailable Grandfield, Steffen Primary Care Unavailable VandEdel Logan Attending Unavailabl e Grandfield, Steffen Primary Care Unavailable Kiley Jain Attending Unavailable Kiley Jain Referring Unavailable Faina, Steffen Primary Care Unavailable Edel Bullock Attending Unavailabl e Grandfield, Steffen Primary Care Unavailable Ld Fermin Attending Unavailable Grandfield, Steffen Primary Care Unavailable Edel Bullock Referring Unavailabl e Edel Bullock Attending UnavailLevon Sprague Attending Unavailable Levon Braxton Referring Unavailable Care Physician, No Primary Primary Care Unava ilable Faina, Steffen Referring Unavailable Grandfield, Steffen Primary Care Unavailable Edel Bullock Attending Unavailabl e Grandfield, Steffen Referring Unavailable Faina, Steffen Primary Care Unavailable Vande Edel Diehl Attending Unavailabl e Faina, Steffen Referring Unavailable Grandfield, Steffen Primary Care Unavailable Kiley Jain Attending Unavailable Grandfield, Steffen Primary Care Unavailable Edel Bullock Referring Unavailabl e Edel Bullock Attending Unavailabl e Vande Velde Edel Admitting Unavailabl e Faina, Steffen Referring Unavailable Faina, Steffen Primary Care Unavailable Apple Lao Attending Unavailable Grandfield, Steffen Primary Care Unavailable Kiley Jain Attending Unavailable Kiley Jain Referring Unavailable Grandfield, Steffen Referring Unavailable Faina, Steffen Primary Care Unavailable Edel Bullock Attending Unavailabl e Grandfield, Steffen Referring Unavailable Faina, Steffen Primary Care Unavailable Apple Lao Attending Unavailable Faina, Steffen Primary Care Unavailable VandEdel Logan Referring Unavailabl Apple Godoy Attending Unavailable Edel Bullock Admitting Unavailabl e Shone Edel Diehl Consulting Unavailabl Mariana Arechiga Attending Unavailable Aida Shields Attending Unavailable Faina, Steffen Primary Care Unavailable Grandfield, Steffen Referring Unavailable Grandfield, Steffen Primary Care Unavailable Pedro GROUTMAN, Aziza Attending Unavailable Grandfield, Steffen Primary Care Unavailable Faina, Steffen Primary Care Unavailable Kiley Jain Attending Unavailable Kiley Jain Referring Unavailable VandEdel Logan Consulting Unavailabl Kiley Saunders Consulting Unavailable Vande Edel Diehl Attending Unavailabl e Grandfield, Steffen Referring Unavailable Faina, Steffen Primary Care Unavailable VandEdel Logan Attending Unavailabl e Faina, Steffen Referring Unavailable Faina, Steffen Primary Care Unavailable Edel Bullock Attending Unavailabl e Allergies Allergy Classification Reported Allergen(s) Allergy Type Date of Onset Reaction(s) Facility (13 sources) Amoxicillin; Translations: [AMOXICILLIN] Drug Allergy 03-10-201 1 Diarrhea, GI Intolerance [facility] (2 sources) ALLERGIES NOT ON FILE; Translations: [ALLERGIES NOT ON FILE] Propensity to adverse reactions (disorder) [facility] 2 Repository Medications Current Medications Medication Drug Class(es) Dates Sig (Normalized) Sig (Original) acetaminophen 325 mg / oxyCODONE hydrochloride 5 mg oral tablet (1 source) Opioid Agonist Start: 05-12-2025 take 1 tablet by mouth every four hours as needed for pain Oxycodone-Acetami nophen (Percocet) 5-325 mg tablet Active 1 {tbl} PO Q4H as needed for pain 20 7 0 May 12, 2025 Status post delivery History of uterine scar from previous surgery [id number] 200 actuat albuterol 0.09 mg/actuat metered dose [...] above: Take 1 tablet by claude th two times a day for 7 days. aspirin 81 mg oral tablet (10 sources) Platelet Aggregation Inhibitor, Nonsteroidal Anti-inflammatory Drug [...] on above: Take 1 capsule by mo [facility] three times a day as needed for up to 7 days. Breast Pump device (16 sources) Start: 01-29-2025 Breast Pump device Active [...] PO DAILY 30 July 20, 2024 3:09pm anxiety/depression Start: 01-06-2023 take 1 tablet by claude [...] oral capsule (8 sources) Antihistamine Start: 03-19-20 take 1 capsule by mouth three times [...] Take 25 mg by mouth. 07/30/2017 Active ibuprofen 800 mg oral tablet (1 source) Nonsteroidal Anti-inflammatory Drug Start: 05-12-2025 take 1 tablet by mouth every eight hours as needed for pain Ibuprofen 800 mg tablet Active 800 mg PO Q8H as needed for pain 30 0 May 12, 2025 12:00am Inhalational Spacing Device (1 source) Start: 01-12-2024 End: 01-12-2024 Inhalational Spacing Device 1 Device one time only for 1 dose. 1 Each 0 01/12/2024 01/12/2024 Active Comment on above: 1 Device one time on ly for 1 dose. lansoprazole (2 sources) Proton Pump Inhibitor LANSOPRAZO LE ORAL Take by mouth. Active LANSOPRAZOLE ORA L Take by mouth. 0 Active Comment on above: Take by mouth. levothyroxine sodium 0.025 mg oral tablet (20 sources) l-Thyroxine Start: 4 End: 5 take 1 tablet by mouth once daily Levothyroxine (Synthroid) 25 mcg tablet Active 25 ug PO daily 90 4 October 15, 2024 12:24am hypothyroidism Magnesium (8 sources) Start: 5 take 1 tablet by mouth once daily Magnesium 200 mg tablet Active 200 mg PO DAILY April 19, 2025 12:00am muscle spasm Start: 04-19-2025 take 1 tablet by claude th once daily Magnesium 200 mg tablet Active 200 mg PO DAILY April 19, 2025 12:00am ondansetron 4 mg disintegrating oral tablet (5 sources) Serotonin-3 Receptor Antagonist Start: 07-29-2019 End: 08-05-2019 take 1 tablet by mouth every six [...] CAPSU LE BY MOUTH EVERY DAY vit 91-suxu-lxcnu-dha ( + DHA) 28 mg iron- 975 mcg-200 mg Cmpk (2 sources) Start: 09-02-2019 take 1 capsule by mouth once daily vit 01-skjj-zwlim-dha ( + DHA) 28 mg iron- 975 mcg-200 mg Cmpk Take 1 capsule by mouth daily . 0 09/02/2019 Active Vit-Fe Vso-KU-Mmwzc (PNV Plus Multivit+DHA) 27-1 & 312 MG Misc (4 sources) Start: 07-29-2024 Vit-Fe Tui-IJ-Pqwec (PNV Plus Multivit+DHA) 27-1 & 312 MG Misc 1 tab + 1 cap daily. Due for yearly follow up - must be seen to get additional refills 180 Each 07/29/2024 Active Start: 10-29-2023 End: 07-29-2024 take 1 tablet by mouth once daily Vit-Fe Pps-UY-Gudnz (PNV Plus Multivit+DHA) 27-1 & 312 MG Misc TAKE 1 TAB & 1 CAPSULE BY MOUTH EVERY DAY 180 Each 1 10/29/2023 07/29/2024 Discontinued Start: 07-03-2022 End: 09-27-2022 take 1 tablet by mouth once daily Vit-Fe Fvj-LG-Gmzqw (PNV Plus Multivit+DHA) 27-1 & 312 MG Misc TAKE 1 TAB & 1 CAPSULE BY MOUTH EVERY DAY 0 07/03/2022 09/27/2022 Discontinued (Reorder) Start: 07-03-2022 take 1 tablet by claude th once daily Vit-Fe Qqx-QD-Gvola (PNV Plus Multivit+DHA) 27-1 & 312 MG [...] mg/ml oral solution (2 sources) Phenothiazine, Uncompetitive Z-njizms-G-asparta te Receptor Antagonist, Sigma-1 Agonist Start: 08-10-2022 End: 09-27-2022 promethazine-dextro methorphan 6.25-15 MG/5ML Syrup Indications: Post-viral cough syndrome Take 5 mL by mouth at bedtime as needed for Cough. 60 mL 0 08/10/2022 09/27/2022 Discontinued (Therapy completed) diphenhydrAMINE hydrochloride 25 mg oral capsule (16 sources) Histamine-1 Receptor Antagonist Start: 10-02-2024 End: 11-05-2024 take 1 capsule by mouth at bedtime as needed Diphenhydramine Hcl (Benadryl) 25 mg capsule Discontinued 25 mg PO AT BEDTIME as needed October 02, 2024 1:00am November 05, 2024 3:32pm estradiol 2 mg oral tablet (16 sources) Estrogen Start: 10-02-2024 End: 11-05-2024 take [...] mL solution loratadine 10 mg oral tablet (16 sources) Start: 10-02-2024 End: 11-05-2024 take 1 tablet by mouth once daily Loratadine (Claritin) 10 mg tablet Discontinued 10 mg PO daily October 02, 2024 1:00am November 05, 2024 3:32pm LORazepam 1 mg oral tablet (17 sources) Benzodiazepine Start: 12-02-2023 End: 07-20-2024 Lorazepam (Ativan) 1 mg tablet Discontinued 1 mg PO ONCE 1 0 December 02, 2023 1:00am July 20, 2024 2:19pm take 30 minutes prior to procedure medroxyPROGESTERone acetate 5 mg oral tablet (16 sources) Progestin Start: 01-22-2024 End: 07-20-2024 take 1 tablet by mouth once daily Medroxyprogesterone 5 mg tablet Discontinued 5 mg PO DAILY 7 3 January 22, 2024 12:00am July 20, 2024 [...] 3:32pm promethazine hydrochloride 25 mg oral tablet (16 sources) Phenothiazine Start: 12-17-2024 End: 04-19-2025 take [...] 04-20-2025 11-04-2023 Chronic Fluid and electrolyte disorders (16 sources) Mild dehydration; Translations: [Dehydration] 11-18-2024 Episodic [...] @ 2 8 weeks Other complications of (11 sources) Group B Streptococcus carrier; Translations: [Streptococcus [...] : [place] Other complications of (1 source) Supervision of resulting from assisted reproductive technology, third trimester; Translations: [Supervision of resulting from assisted reproductive technology, third trimester] Onset: 05-21-2025 Episodic Other complications of (1 source) Streptococcus B carrier state complicating ; Translations: [Streptococcus B carrier state complicating ] Onset: 05-21-2025 Episodic Other complications of (2 sources) Supervision of elderly multigravida, unspecified trimester; Translations: [Supervision of elderly multigravida, unspecified trimester] Onset: 04-20-2025 Episodic Other complications of (2 sources) Other specified related conditions, unspecified trimester; Translations: [Other specified related conditions, unspecified trimester] Onset: 04-20-2025 Episodic Other complications of (2 sources) Supervision of high risk , unspecified, unspecified trimester; Translations: [Supervision of high risk , unspecified, unspecified trimester] Onset: 05-06-2025 Episodic Other complications of (1 source) Other abnormal findings on screening of mother; Translations: [Other abnormal findings on screening of mother] Onset: 04-29-2025 Episodic Other endocrine disorders (20 sources) Polycystic ovary syndrome; Translations: [Polycystic ovarian syndrome] 11-04-2023 Chronic Other endocrine disorders (4 sources) Polycystic ovarian syndrome; Translations: [Polycystic ovaries] [...] unspecified] Onset: 07-20-2024 Chronic Residual codes; unclassified (16 sources) Infertile 10-02-2024 Episodic Comment on above: [...] with limited medical history Residual codes; unclassified (7 sources) Past history of procedure; Translations: [Personal history of other medical treatment] 04-19-2025 Episodic Residual codes; unclassified (2 sources) History of uterine scar from previous surgery; Translations: [History of uterine scar from previous surgery] Onset: 04-20-2025 Episodic Residual codes; unclassified (2 sources) Other specified health status; Translations: [Other specified health status] Onset: 05-06-2025 Episodic Residual codes; unclassified (2 sources) Family history of other specified conditions; Translations: [Family history of other specified conditions] Onset: 04-20-2025 Episodic Residual codes; unclassified (2 sources) Unspecified blood type, Rh negative; Translations: [Unspecified blood type, Rh negative] Onset: 04-20-2025 Episodic Residual codes; unclassified (1 source) 38 weeks gestation of ; Translations: [38 weeks gestation of ] Onset: 05-21-2025 Episodic Residual codes; unclassified (2 sources) 34 [...] Pt informed of random tox screens Syncope (16 sources) Vasovagal syncope; Translations: [Syncope and collapse] [...] Test Name Value Interpretation Reference Range Facility Absolute lymphocyte countOrd ered By: Apple Lao on 05-13-2025 Lymphocytes Auto (Unsp spec) [#/Vol] 2.88 10*3/uL 0.83-4.51 [facility] Absolute neutrophil countOrd ered By: Apple Lao on 05-13-2025 Neutrophils (Bld) [#/Vol] 12.5 10*3/uL High 2.0-7.7 [facility] Activated partial thrombopla stin time (aPTT) in platelet poor plasma by coagulation aOrdered By: Apple Lao on 05-13-2025 aPTT Coag (PPP) [Time] 22.8 s Low 24.1-36.2 [facility] Automated lymphocyte count a s percentage of total leukocytesOrdered By: Apple Lao on 05-13-2025 Lymphocytes/100 WBC Auto (Unsp spec) 17.1 % Low 19-41 [facility] Basophil percentageOrdered B y: Apple Lao on 05-13-2025 Basophils/100 WBC (Bld) 0.4 % 0-1 [facility] CBC W/Diff, Automatedon 04-30 Absolute Lymph 2.88 X10 3/uL Normal 0.83-4.51 [facility] Comment on above: Performed By: #### L 100.0100 ####[facility] [address] [place], [address] Absolute Neut 12.5 X10 3/uL High 2.0-7.7 [facility] Comment on above: Performed By: #### L 100.0100 ####[facility] [address] [place], [address] Basophils/100 WBC (Bld) 0.4 % Normal 0-1 [facility] Comment on above: Performed By: #### L 100.0100 ####[facility] [address] [place], [address] Eosinophils/100 WBC (Bld) 0.9 % Normal 0-5 [facility] Comment on above: Performed By: #### L 100.0100 ####[facility] [address] [place], [address] Erythrocyte distribution width (RBC) [Ratio] 13.6 % Normal 11.6-14.6 [facility] Comment on above: Performed By: #### L 100.0100 ####[facility] [address] [place], [address] Hematocrit (Bld) [Volume fraction] 33.9 % Low 37-47 [facility] Comment on above: Performed By: #### L 100.0100 ####[facility] [address] [place], [address] Hemoglobin (Bld) [Mass/Vol] 11.5 g/dL Low 12.0-15.0 [facility] Comment on above: Performed By: #### L 100.0100 ####[facility] [address] [place], [address] IG% 1.000 High 0.0-0.9 [facility] Comment on above: Result Comment: IG% - Immature Granulocytes (promyelocytes, myelocytes andmetamyelocytes) > 1% indicates that a LEFT SHIFT is Present. Performed By: #### L 100.0100 ####[facility] [address] [place], [address] Lymphocytes/100 WBC (Bld) 17.1 % Low 19-41 [facility] Comment on above: Performed By: #### L 100.0100 ####[facility] [address] [place], [address] MCH (RBC) [Entitic mass] 29.6 pg Normal 27.0-32.0 [facility] Comment on above: Performed By: #### L 100.0100 ####[facility] [address] [place], [address] MCHC (RBC) [Mass/Vol] 33.9 g/dL Normal 32-36 [facility] Comment on above: Performed By: #### L 100.0100 ####[facility] [address] [place], [address] MCV (RBC) [Entitic vol] 87.4 fL Normal 81-99 [facility] Comment on above: Performed By: #### L 100.0100 ####[facility] [address] [place], [address] Monocytes/100 WBC (Bld) 6.6 % Normal 0-10 [facility] Comment on above: Performed By: #### L 100.0100 ####[facility] [address] [place], [address] Neutrophils/100 WBC (Bld) 74.0 % High 47-70 [facility] Comment on above: Performed By: #### L 100.0100 ####[facility] [address] [place], [address] Nucleated RBC (Bld) [#/Vol] 0 10*3/uL Normal 0-5 [facility] Comment on above: Performed By: #### L 100.0100 ####[facility] [address] [place], [address] Platelet mean volume (Bld) [Entitic vol] 9.7 fL Normal 6.2-12.0 [facility] Comment on above: Performed By: #### L 100.0100 ####[facility] [address] [place], [address] Platelets (Bld) [#/Vol] 299 10*3/uL Normal 150-450 [facility] Comment on above: Performed By: #### L 100.0100 ####[facility] [address] [place], [address] RBC (Bld) [#/Vol] 3.88 10*6/uL Low 4.2-5.4 [facility] Comment on above: Performed By: #### L 100.0100 ####[facility] [address] [place], [address] RDW SD 43.1 fl Normal 35.1-43.9 [facility] Comment on above: Performed By: #### L 100.0100 ####[facility] [address] [place], [address] WBC (Bld) [#/Vol] 16.9 10*3/uL High 4.4-11.0 [facility] Comment on above: Performed By: #### L 100.0100 ####[facility] [address] [place], [address] CBC-Complete Blood Cnt No Di ffon 05-13-2025 Erythrocyte distribution width (RBC) [Ratio] 13.6 % Normal 11.6-14.6 [facility] Comment on above: Order Comment: Comme nts: Day #1Reason for Laboratory Test Performed By: #### L 100.0500 ####[facility] [address] [place], [address] Hematocrit (Bld) [Volume fraction] 33.8 % Low 37-47 [facility] Comment on above: Order Comment: Comme nts: Day #1Reason for Laboratory Test Performed By: #### L 100.0500 ####[facility] [address] [place], [address] Hemoglobin (Bld) [Mass/Vol] 11.4 g/dL Low 12.0-15.0 [facility] Comment on above: Order Comment: Comme nts: Day #1Reason for Laboratory Test Performed By: #### L 100.0500 ####[facility] [address] [place], [address] MCH (RBC) [Entitic mass] 29.4 pg Normal 27.0-32.0 [facility] Comment on above: Order Comment: Comme nts: Day #1Reason for Laboratory Test Performed By: #### L 100.0500 ####[facility] [address] [place], [address] MCHC (RBC) [Mass/Vol] 33.7 g/dL Normal 32-36 [facility] Comment on above: Order Comment: Comme nts: Day #1Reason for Laboratory Test Performed By: #### L 100.0500 ####[facility] [address] [place], [address] MCV (RBC) [Entitic vol] 87.1 fL Normal 81-99 [facility] Comment on above: Order Comment: Comme nts: Day #1Reason for Laboratory Test Performed By: #### L 100.0500 ####[facility] [address] [place], [address] Platelet mean volume (Bld) [Entitic vol] 9.6 fL Normal 6.2-12.0 [facility] Comment on above: Order Comment: Comme nts: Day #1Reason for Laboratory Test Performed By: #### L 100.0500 ####[facility] [address] [place], [address] Platelets (Bld) [#/Vol] 228 10*3/uL Normal 150-450 [facility] Comment on above: Order Comment: Comme nts: Day #1Reason for Laboratory Test Performed By: #### L 100.0500 ####[facility] [address] [place], [address] RBC (Bld) [#/Vol] 3.88 10*6/uL Low 4.2-5.4 [facility] Comment on above: Order Comment: Comme nts: Day #1Reason for Laboratory Test Performed By: #### L 100.0500 ####[facility] [address] [place], [address] RDW SD 43.1 fl Normal 35.1-43.9 [facility] Comment on above: Order Comment: Comme nts: Day #1Reason for Laboratory Test Performed By: #### L 100.0500 ####[facility] [address] [place], [address] WBC (Bld) [#/Vol] 15.0 10*3/uL High 4.4-11.0 [facility] Comment on above: Order Comment: Comme nts: Day #1Reason for Laboratory Test Performed By: #### L 100.0500 ####[facility] [address] [place], [address] Eosinophil percentageOrdered By: Apple Lao on 05-13-2025 Eosinophils/100 WBC (Bld) 0.9 % 0-5 [facility] Erythrocyte distribution wid th ratioOrdered By: Apple Lao on 05-13-2025 Erythrocyte distribution width (RBC) [Ratio] 13.6 % 11.6-14.6 [facility] Erythrocyte distribution wid th standard deviationOrdered By: Apple Lao on 05-13-2025 Erythrocyte distribution width (RBC) [Ratio] 43.1 fl 35.1-43.9 [facility] Fibrinogenon 05-13-2025 FIBRINOGEN 422 mg/dl Normal 203-444 [facility] Comment on above: Performed By: #### L 300.4700, L300.3900, L300.4310 ####[facility] [address] [place], [address] Hematocrit Auto (Bld) [Volum e fraction]Ordered By: Apple Lao on 05-13-2025 Hematocrit (Bld) [Volume fraction] 33.9 % Low 37-47 [facility] Hemoglobin measurementOrdere d By: Apple Lao on 05-13-2025 Hemoglobin (Bld) [Mass/Vol] 11.5 g/dL Low 12.0-15.0 [facility] Immature granulocytes/100 WB C Auto (Bld)Ordered By: Apple Lao on 05-13-2025 Immature granulocytes/100 WBC (Bld) 1.000 % High 0.0-0.9 [facility] Comment on above: IG% - Immature Granu locytes (promyelocytes, myelocytes and metamyelocytes) > 1% indicates that a LEFT SHIFT is Present. International normalized rat io (INR) calculationOrdered By: Apple Lao on 05-13-2025 INR Coag (Bld) [Relative time] 1.0 {INR} [facility] Thomas 05-13-2025 ROXANA Positive Abnormal [facility] Comment on above: Result Comment: Ashlee Huertas Study Reference: Negative POSITIVE AB* Feto-maternal hemorrhage ( RBCs): 10 mL. TESTING PERFORMED AT [facility]. ORIGINAL REPORT ON FILE IN LAB CONTAINS ADDITIONAL TEST SITE INFORMATION. Performed By: #### L 803.2300 ####[facility] [address] [place], [place], [id number] MCV (mean corpuscular volume ) determinationOrdered By: Apple Lao on 05-13-2025 MCV (RBC) [Entitic vol] 87.4 fL 81-99 [facility] Mean corpuscular hemoglobin (MCH) determinationOrdered By: Apple Lao on 05-13-2025 MCH (RBC) [Entitic mass] 29.6 pg 27.0-32.0 [facility] Mean corpuscular hemoglobin concentration (MCHC) determinationOrdered By: Apple Lao on 05-13-2025 MCHC (RBC) [Mass/Vol] 33.9 g/dL 32-36 [facility] Mean platelet volume determi nationOrdered By: Apple Lao on 05-13-2025 Platelet mean volume (Bld) [Entitic vol] 9.7 fL 6.2-12.0 [facility] Monocyte percentageOrdered B y: Apple Lao on 05-13-2025 Monocytes/100 WBC (Bld) 6.6 % 0-10 [facility] Neutrophil percentageOrdered By: Apple Lao on 05-13-2025 Neutrophils/100 WBC (Bld) 74.0 % High 47-70 [facility] Nucleated red blood cell per centageOrdered By: Apple Lao on 05-13-2025 Nucleated RBC/100 WBC (Bld) [Ratio] 0 % 0-5 [facility] Partial Thromboplast Timeon 05-13-2025 aPTT Coag (Bld) [Time] 22.8 s Low 24.1-36.2 [facility] Comment on above: Performed By: #### L 300.4700, L300.3900, L300.4310 ####[facility] [address] [place], [place], [id number] Platelet countOrdered By: Elena Lao on 05-13-2025 Platelets (Bld) [#/Vol] 299 10*3/uL 150-450 [facility] Prothrombin Time w/INRon INR Coag (PPP) [Relative time] 1.0 {INR} Normal [facility] Comment on above: Performed By: #### L 300.4700, L300.3900, L300.4310 ####[facility] [address] [place], [address] PT Coag (PPP) [Time] 12.8 s Normal 11.7-14.9 [facility] Comment on above: Performed By: #### L 300.4700, L300.3900, L300.4310 ####[facility] [address] [place], [address] Prothrombin timeOrdered By: Apple Lao on 05-13-2025 PT Coag (PPP) [Time] 12.8 s 11.7-14.9 [facility] RBC Auto (Bld) [#/Vol]Ordere d By: Apple Lao on 05-13-2025 RBC (Bld) [#/Vol] 3.88 10*6/uL Low 4.2-5.4 [facility] White blood cell (WBC) count Ordered By: Apple Lao on 05-13-2025 WBC (Bld) [#/Vol] 16.9 10*3/uL High 4.4-11.0 [facility] Amphetamine detection with 1 000 ng/mL as cutoffOrdered By: Edel Diehl on 05-12-2025 Amphetamines Screen method >1000 ng/mL Ql (U) Negative < 200 ng/mL [facility] BRho(D) IGon 05-12-2025 Rho(D) IG Normal [facility] Comment on above: Result Comment: [id number] Rho(D) IG PRSMD TRFSD 05/12/25 [id number] Rho(D) IG PRSMD TRFSD 05/13/25 1138 Performed By: #### B Rho(D) IG, BRHNM ####[facility] [address] [place], [address] CBC W/Diff, Automatedon 08-10 02-2024 Absolute Lymph 2.15 X10 3/uL Normal 0.83-4.51 [facility] Comment on above: Performed By: #### Scotty HODGES, L100.0100 ####[facility] [address] [place], [address] Absolute Neut 9.1 X10 3/uL High 2.0-7.7 [facility] Comment on above: Performed By: #### Scotty HODGES, L100.0100 ####[facility] [address] [place], [address] Basophils/100 WBC (Bld) 0.4 % Normal 0-1 [facility] Comment on above: Performed By: #### Scotty HODGES, L100.0100 ####[facility] [address] [place], [address] Eosinophils/100 WBC (Bld) 1.1 % Normal 0-5 [facility] Comment on above: Performed By: #### Scotty HODGES, L100.0100 ####[facility] [address] [place], [address] Erythrocyte distribution width (RBC) [Ratio] 13.4 % Normal 11.6-14.6 [facility] Comment on above: Performed By: #### Scotty HODGES, L100.0100 ####[facility] [address] [place], [address] Hematocrit (Bld) [Volume fraction] 36.4 % Low 37-47 [facility] Comment on above: Performed By: #### Scotty HODGES, L100.0100 ####[facility] [address] [place], [address] Hemoglobin (Bld) [Mass/Vol] 12.5 g/dL Normal 12.0-15.0 [facility] Comment on above: Performed By: #### Scotty HODGES, L100.0100 ####[facility] [address] [place], [address] IG% 1.300 High 0.0-0.9 [facility] Comment on above: Result Comment: IG% - Immature Granulocytes (promyelocytes, myelocytes andmetamyelocytes) > 1% indicates that a LEFT SHIFT is Present. Performed By: #### Scotty HODGES, L100.0100 ####[facility] [address] [place], [address] Lymphocytes/100 WBC (Bld) 17.3 % Low 19-41 [facility] Comment on above: Performed By: #### Scotty HODGES, L100.0100 ####[facility] [address] [place], [address] MCH (RBC) [Entitic mass] 29.8 pg Normal 27.0-32.0 [facility] Comment on above: Performed By: #### Scotty HODGES, L100.0100 ####[facility] [address] [place], [address] MCHC (RBC) [Mass/Vol] 34.3 g/dL Normal 32-36 [facility] Comment on above: Performed By: #### Scotty HODGES, L100.0100 ####[facility] [address] [place], [address] MCV (RBC) [Entitic vol] 86.7 fL Normal 81-99 [facility] Comment on above: Performed By: #### Scotty HODGES, L100.0100 ####[facility] [address] [place], [address] Monocytes/100 WBC (Bld) 6.7 % Normal 0-10 [facility] Comment on above: Performed By: #### Scotty HODGES, L100.0100 ####[facility] [address] [place], [address] Neutrophils/100 WBC (Bld) 73.2 % High 47-70 [facility] Comment on above: Performed By: #### Scotty HODGES, L100.0100 ####[facility] [address] [place], [address] Nucleated RBC (Bld) [#/Vol] 0 10*3/uL Normal 0-5 [facility] Comment on above: Performed By: #### Scotty HODGES, L100.0100 ####[facility] [address] [place], [address] Platelet mean volume (Bld) [Entitic vol] 9.8 fL Normal 6.2-12.0 [facility] Comment on above: Performed By: #### Scotty HODGES, L100.0100 ####[facility] [address] [place], [address] Platelets (Bld) [#/Vol] 252 10*3/uL Normal 150-450 [facility] Comment on above: Performed By: #### Scotty HODGES, L100.0100 ####[facility] [address] [place], [address] RBC (Bld) [#/Vol] 4.20 10*6/uL Normal 4.2-5.4 [facility] Comment on above: Performed By: #### Scotty HODGES, L100.0100 ####[facility] [address] [place], [address] RDW SD 42.0 fl Normal 35.1-43.9 [facility] Comment on above: Performed By: #### Scotty HODGES, L100.0100 ####[facility] [address] [place], [address] WBC (Bld) [#/Vol] 12.4 10*3/uL High 4.4-11.0 [facility] Comment on above: Performed By: #### Scotty HODGES, L100.0100 ####[facility] [address] [place], [place], [id number] Discharge Instructionon 04-30 Discharge Instruction Normal [facility] H AND P Exam - OB/GYNon 04-30 H&P Exam - MACHINE FIXER Normal [facility] No Panel InformationOrdered By: Edel Diehl on 05-12-2025 Urine Buprenorphine Qualitative Negative < 200 ng/mL [facility] Urine Oxycodone Screen Negative < 100 ng/mL [facility] Operative Reporton Operative Report Normal [facility] Quantitative urine opiates m easurementOrdered By: Edel Diehl on 05-12-2025 Opiates Ql (U) Negative < 300 ng/mL [facility] Rh Negative Mom Workupon SCREEN Positive Abnormal NEGATIVE [facility] Comment on above: Order Comment: Comme nts: Age > 13 Weeksbaby tcfibwm61 Result Comment: ASHLEE LI TEST TO FOLLOW. Performed By: #### B Rho(D) IG, BRHNM ####[facility] [address] [place], [place], [address] ABO and Rh group Nom (Bld) Blood group B Rh(D) negative Normal [facility] Comment on above: Order Comment: Comme nts: Age > 13 Weeksbaby rpfiexj58 Performed By: #### B Rho(D) IG, BRHNM ####[facility] [address] [place], [place], [address] ABO and Rh group Nom (Bld) Blood group B Rh(D) positive Normal [facility] Comment on above: Order Comment: Comme nts: Age > 13 Weeksbaby hagqkol35 Performed By: #### B Rho(D) IG, BRHNM ####[facility] [address] [place], [place], [id number] DIRECT ANTIGLOB Negative Normal NEGATIVE [facility] Comment on above: Order Comment: Comme nts: Age > 13 Weeksbaby bleqido47 Performed By: #### B Rho(D) IG, BRHNM ####[facility] [address] [place], [address] MOM'S ABS Negative Normal [facility] Comment on above: Order Comment: Comme nts: Age > 13 Weeksbaby ohmijyi49 Performed By: #### B Rho(D) IG, BRHNM ####[facility] [address] [place], [address] Screening urine fentanyl kaden surementOrdered By: Edel Diehl on 05-12-2025 fentaNYL Screen Ql (U) Negative [facility] Syphilis Antibodieson 2024 Syphilis Abs Non-Reactive Normal Nonreactive [facility] Comment on above: Performed By: #### L 509.8002 ####[facility] [address] [place], [address] Type AND Screenon 05-12-2025 Ab SCREEN GEL Negative Normal [facility] Comment on above: Order Comment: SC-SE CTION Performed By: #### B TS, L100.0100 ####[facility] [address] [place], [address] Urine Drug Screen (VISTA)on 05-12-2025 AMPHETAMINES Negative Normal <1000 ng/mL [facility] Comment on above: Performed By: #### L 505.5000 ####[facility] [address] [place], [address] BARBITIURATES Negative Normal < 200 ng/mL [facility] Comment on above: Performed By: #### L 505.5000 ####[facility] [address] [place], [address] BENZODIAZIPINE Negative Normal < 200 ng/mL [facility] Comment on above: Performed By: #### L 505.5000 ####[facility] [address] [place], [address] BUP Ur Drug Scr Negative Normal < 200 ng/mL [facility] Comment on above: Performed By: #### L 505.5000 ####[facility] [address] [place], [address] COCAINE Negative Normal < 300 ng/mL [facility] Comment on above: Performed By: #### L 505.5000 ####[facility] [address] [facility] [place] [address] Fentanyl Negative Normal [facility] Comment on above: Performed By: #### L 505.5000 ####[facility] [address] [place], [address] METHADONE Negative Normal < 300 ng/mL [facility] Comment on above: Performed By: #### L 505.5000 ####[facility] [address] [place], [address] OPIATES Negative Normal < 300 ng/mL [facility] Comment on above: Performed By: #### L 505.5000 ####[facility] [address] [place], [address] OXYCODONE Negative Normal < 100 ng/mL [facility] Comment on above: Performed By: #### L 505.5000 ####[facility] [address] [place], [address] PCP Negative Normal < 25 ng/mL [facility] Comment on above: Performed By: #### L 505.5000 ####[facility] [address] [place], [address] THC Negative Normal < 50 ng/mL [facility] Comment on above: Performed By: #### L 505.5000 ####[facility] [address] [place], [address] Urine benzodiazepine levelOr dered By: Edel Diehl on 05-12-2025 Benzodiazepines Ql (U) Negative < 200 ng/mL [facility] Urine cocaine levelOrdered B y: Edel Diehl on 05-12-2025 Cocaine Ql (U) Negative < 300 ng/mL [facility] Urine xizgb-8-igvuqyujdwaxky abinol (THC) measurementOrdered By: Edel Diehl on 05-12-2025 Cannabinoids Screen Ql (U) Negative < 50 ng/mL [facility] Urine phencyclidine (PCP) de tectionOrdered By: Edel Diehl on 05-12-2025 Phencyclidine Ql (U) Negative < 25 ng/mL [facility] Laboratory - Chemistry and C hemistry - challengeOrdered By: Edel Diehl on 05-06-2025 Glucose Ql (U) Negative [facility] Laboratory - UrinalysisOrder ed By: Edel Diehl on 05-06-2025 Protein Ql (U) Negative [facility] Shaper Operator Office Visit Reporton 05-06-2025 Shaper Operator Office Visit Report Normal [facility] Rule out Beta Strep (Grp. B) on 05-03-2025 RANJAN Normal [facility] Comment on above: Performed By: #### M 100.3400 ####[facility] [address] [place], [address] Laboratory - Chemistry and C hemistry - challengeOrdered By: Edel Diehl on 04-28-2025 Glucose Ql (U) Negative [facility] Laboratory - UrinalysisOrder ed By: Edel Diehl on 04-28-2025 Protein Ql (U) Negative [facility] Shaper Operator Office Visit Reporton 04-28-2025 Shaper Operator Office Visit Report Normal [facility] Screening beta-hemolytic Str eptococcus cultureOrdered By: Edel Diehl on 04-28-2025 Beta-hemolytic Streptococcus culture Streptococcus agalactiae (B) Abnormal [facility] OB Biophysical Prof W/O NSTo n 04-22-2025 OB Biophysical Prof W/O NST Normal [facility] Laboratory - Chemistry and C hemistry - challengeOrdered By: Apple Lao on 04-20-2025 Glucose Ql (U) Negative [facility] Laboratory - UrinalysisOrder ed By: Apple Lao on 04-20-2025 Protein Ql (U) Negative [facility] Shaper Operator Office Visit Reporton 04-20-2025 Shaper Operator Office Visit Report Normal [facility] OB Biophysical Prof W/O NSTo n 04-19-2025 OB Biophysical Prof W/O NST Normal [facility] OB Triage Progress Noteon OB Triage Progress Note Normal [facility] OB Biophysical Prof W/O NSTo n 04-15-2025 OB Biophysical Prof W/O NST Normal [facility] L3410.9992on 04-08-2025 [facility] Misc. COMMENT Normal . [facility] Comment on above: Order Comment: [id number] 640serum FZ bile acids Result Comment: Perf ormed at: - [facility] [place] [id number] Director: Huan Kuhn PhD, Phone: [phone] Performed By: #### L 500.4050, L3410.9992 ####[facility] [address] [place], [address] Anion gap in Serum or Plasma Ordered By: Edel Diehl on 04-07-2025 Anion gap [Moles/Vol] 12 mmol/L 5-15 [facility] BUN/creatinine ratioOrdered By: Edel Diehl on 04-07-2025 Urea nitrogen/Creatinine [Mass ratio] 7.7 mg/mg Low 10-20 [facility] Bilirubin, totalOrdered By: Edel Diehl on 04-07-2025 Bilirubin [Mass/Vol] 0.29 mg/dL 0.00-1.30 [facility] Carbon dioxide, total [Moles /volume] in Central venous bloodOrdered By: Edel Diehl on 04-07-2025 CO2 [Moles/Vol] 19.0 mmol/L Low 21.0-32.0 [facility] Chloride assayOrdered By: Mickey Diehl on 04-07-2025 Chloride [Moles/Vol] 107 mmol/L 98-108 [facility] Comprehensive Metabolic Prof ilon 04-07-2025 Albumin [Mass/Vol] 3.6 g/dL Normal 3.5-5.0 [facility] Comment on above: Performed By: #### L 500.4050, L3410.9992 ####[facility] [address] [place], [address] Albumin/Globulin [Mass ratio] 1.1 {ratio} Normal 0.9-2.4 [facility] Comment on above: Performed By: #### L 500.4050, L3410.9992 ####[facility] [address] [place], [address] ALK PHOS 146 U/L High 35-104 [facility] Comment on above: Performed By: #### L 500.4050, L3410.9992 ####[facility] [address] [place], [address] ALT [Catalytic activity/Vol] 21 U/L Normal <=34 [facility] Comment on above: Performed By: #### L 500.4050, L3410.9992 ####[facility] [address] [place], [address] AST [Catalytic activity/Vol] 19 U/L Normal <=31 [facility] Comment on above: Performed By: #### L 500.4050, L3410.9992 ####[facility] [address] [place], [address] Bilirubin [Mass/Vol] 0.29 mg/dL Normal 0.00-1.30 [facility] Comment on above: Performed By: #### L 500.4050, L3410.9992 ####[facility] [address] [place], [address] BUN/CRE 7.7 RATIO Low 10-20 [facility] Comment on above: Performed By: #### L 500.4050, L3410.9992 ####[facility] [address] [place], [address] Calcium [Mass/Vol] 9.2 mg/dL Normal 7.6-11.0 [facility] Comment on above: Performed By: #### L 500.4050, L3410.9992 ####[facility] [address] [place], [address] Chloride [Moles/Vol] 107 mmol/L Normal 98-108 [facility] Comment on above: Performed By: #### L 500.4050, L3410.9992 ####[facility] [address] [place], [address] CO2 [Moles/Vol] 19.0 mmol/L Low 21.0-32.0 [facility] Comment on above: Performed By: #### L 500.4050, L3410.9992 ####[facility] [address] [place], [address] Creatinine [Mass/Vol] 0.58 mg/dL Low 0.70-1.20 [facility] Comment on above: Performed By: #### L 500.4050, L3410.9992 ####[facility] [address] [place], [address] GAP 12 Normal 5-15 [facility] Comment on above: Performed By: #### L 500.4050, L3410.9992 ####[facility] [address] [place], [address] GFR/1.73 sq M.predicted among non-blacks MDRD (S/P/Bld) [Vol rate/Area] 121 mL/min/{1.73_m2} Normal >60 [facility] Comment on above: Result Comment: mL/m in/1.73m2 CKD-EPI Creatinine Equation (2020) Performed By: #### L 500.4050, L3410.9992 ####[facility] [address] [place], [address] Globulin (S) [Mass/Vol] 3.4 g/dL Normal 2.2-4.2 [facility] Comment on above: Performed By: #### L 500.4050, L3410.9992 ####[facility] [address] [place], [address] Glucose [Mass/Vol] 85 mg/dL Normal 70-99 [facility] Comment on above: Performed By: #### L 500.4050, L3410.9992 ####[facility] [address] [place], [address] Potassium [Moles/Vol] 4.0 mmol/L Normal 3.3-5.1 [facility] Comment on above: Performed By: #### L 500.4050, L3410.9992 ####[facility] [address] [place], [address] Sodium [Moles/Vol] 137 mmol/L Normal 133-145 [facility] Comment on above: Performed By: #### L 500.4050, L3410.9992 ####[facility] [address] [place], [address] T PROT 6.9 g/dL Normal 5.9-8.4 [facility] Comment on above: Performed By: #### L 500.4050, L3410.9992 ####[facility] [address] [place], [address] Urea nitrogen [Mass/Vol] 4 mg/dL Normal 4-19 [facility] Comment on above: Performed By: #### L 500.4050, L3410.9992 ####[facility] [address] [place], [address] Glomerular filtration rate ( GFR) estimation/1.73 sq m using serum, plasma, or whole bOrdered By: Edel Diehl on 04-07-2025 GFR/1.73 sq M.predicted among non-blacks MDRD (S/P/Bld) [Vol rate/Area] 121 mL/min/{1.73_m2} >60 [facility] Comment on above: mL/min/1.73m2 CKD-EP I Creatinine Equation (2020) Laboratory - Chemistry and C hemistry - challengeOrdered By: Edel Diehl on 04-07-2025 AST [Catalytic activity/Vol] 19 U/L <32 [facility] Shaper Operator Office Visit Reporton 04-07-2025 Shaper Operator Office Visit Report Normal [facility] Potassium measurement (mass/ volume)Ordered By: Edel Diehl on 04-07-2025 Potassium (Unsp spec) [Mass/Vol] 4.0 mmol/L 3.3-5.1 [facility] Serum creatinine measurement (mass/volume)Ordered By: Edel Diehl on 04-07-2025 Creatinine [Mass/Vol] 0.58 mg/dL Low 0.70-1.20 [facility] Serum globulin measurementOr dered By: Edel Diehl on 04-07-2025 Globulin (S) [Mass/Vol] 3.4 g/dL 2.2-4.2 [facility] Serum glucose measurement (m ass/volume)Ordered By: Edel Diehl on 04-07-2025 Glucose [Mass/Vol] 85 mg/dL 70-99 [facility] Serum or plasma alanine jung otransferase (ALT) measurementOrdered By: Edel Diehl on 04-07-2025 ALT [Catalytic activity/Vol] 21 U/L <35 [facility] Serum or plasma albumin kenisha urement (mass/volume)Ordered By: Edel Diehl on 04-07-2025 Albumin [Mass/Vol] 3.6 g/dL 3.5-5.0 [facility] Serum or plasma albumin/glob ulin mass ratioOrdered By: Edel Diehl on 04-07-2025 Albumin/Globulin [Mass ratio] 1.1 {ratio} 0.9-2.4 [facility] Serum or plasma alkaline ct sphatase measurementOrdered By: Edel Diehl on 04-07-2025 ALP [Catalytic activity/Vol] 146 U/L High 35-104 [facility] Serum or plasma calcium kenisha urement (mass/volume)Ordered By: Edel Diehl on 04-07-2025 Calcium [Mass/Vol] 9.2 mg/dL 7.6-11.0 [facility] Serum or plasma urea nitroge n measurement (mass/volume)Ordered By: Edel Diehl on 04-07-2025 Urea nitrogen [Mass/Vol] 4 mg/dL 4-19 [facility] Sodium levelOrdered By: Kellen Diehl on 04-07-2025 Sodium [Moles/Vol] 137 mmol/L 133-145 [facility] Total proteinOrdered By: Rachel Diehl on 04-07-2025 Protein [Mass/Vol] 6.9 g/dL 5.9-8.4 [facility] Laboratory - Chemistry and C hemistry - challengeOrdered By: Edel Diehl on 03-26-2025 Glucose Ql (U) Negative [facility] Laboratory - UrinalysisOrder ed By: Edel Diehl on 03-26-2025 Protein Ql (U) Negative [facility] Shaper Operator Office Visit Reporton 03-26-2025 Shaper Operator Office Visit Report Normal [facility] Genital Culture Comprehensiv tracy 03-12-2025 VAC Reason for Exam: contractions No Gardnerella, Neisseria or beta-hemolytic Streptococcus isolated. Presumptive C albicans Amount Growth 2+ Normal [facility] Comment on above: Performed By: #### M 100.3200, M1.1999 ####[facility] [address] [place], [place], [id number] Gram Stainon 03-10-2025 GS Reason for Exam: contractions Gram Stain 3+ Gram positive rods 1+ White Blood Cells No Gram negative diplococci Score = 1 Interpretation: 0-3 Normal, 4-6 Intermediate, 7-10 Positive BV Normal [facility] Comment on above: Performed By: #### M 100.3200, M100.1999 ####[facility] [address] [place], [place], [id number] Gram stainOrdered By: Ronda Diehl on 03-10-2025 Microscopic observation Gram stain Nom (Unsp spec) [facility] Laboratory - Chemistry and C hemistry - challengeOrdered By: Edel Diehl on 03-10-2025 Glucose Ql (U) Negative [facility] Laboratory - UrinalysisOrder ed By: Edel Diehl on 03-10-2025 Protein Ql (U) Negative [facility] Shaper Operator Office Visit Reporton 03-10-2025 Shaper Operator Office Visit Report Normal [facility] Gestational GTT 3HR 100gon 0 03-05-2025 GEST GTT 100gm Normal [facility] Comment on above: Order Comment: Y Result Comment: FAST ING 85 Col: 03/05/25 0700GLUCOSE TOLERANCE TEST FOR Reference Interval GESTATIONAL DIABETES Fasting <105 mg/dL 1 hour <190 mg/dl 2 hour <165 mg/dl 3 hour <145 mg/dl 1 HR GLU 150 Col: 03/05/25 0829 2 HR GLU 148 Col: 03/05/25 0926 3 HR GLU 60 Col: 03/05/25 1029 Performed By: #### L 500.4710 ####[facility] [address] [place], [address] Quantitative serum or plasma 3 hour gestational glucose tolerance panelOrdered By: Kiley Jian on 03-05-2025 Glucose tolerance 3 hours gestational panel See comment [facility] Comment on above: FASTING 85 Col: 0603/24 0700GLUCOSE TOLERANCE TEST FOR Reference Interval GESTATIONAL DIABETES Fasting <105 mg/dL 1 hour <190 mg/dl 2 hour <165 mg/dl 3 hour <145 mg/dl 1 HR GLU 150 Col: 03/05/25 0829 2 HR GLU 148 Col: 03/05/25 0926 3 HR GLU 60 Col: 03/05/25 1029 Absolute lymphocyte countOrd ered By: Edel Diehl on 02-26-2025 Lymphocytes Auto (Unsp spec) [#/Vol] 2.26 10*3/uL 0.83-4.51 [facility] Absolute neutrophil countOrd ered By: Edel Diehl on 02-26-2025 Neutrophils (Bld) [#/Vol] 8.8 10*3/uL High 2.0-7.7 [facility] Automated lymphocyte count a s percentage of total leukocytesOrdered By: Edel Diehl on 02-26-2025 Lymphocytes/100 WBC Auto (Unsp spec) 19.1 % 19-41 [facility] Basophil percentageOrdered B y: Edel Diehl on 02-26-2025 Basophils/100 WBC (Bld) 0.3 % 0-1 [facility] CBC W/Diff, Automatedon 01-30 0-2024 Absolute Lymph 2.26 X10 3/uL Normal 0.83-4.51 [facility] Comment on above: Performed By: #### L 501.0250, L100.0100, L3890.6006, BTS, L509.8002 ####[facility] [address] [place], [address] Absolute Neut 8.8 X10 3/uL High 2.0-7.7 [facility] Comment on above: Performed By: #### L 501.0250, L100.0100, L3890.6006, BTS, L509.8002 ####[facility] [address] [place], [address] Basophils/100 WBC (Bld) 0.3 % Normal 0-1 [facility] Comment on above: Performed By: #### L 501.0250, L100.0100, L3890.6006, BTS, L509.8002 ####[facility] [address] [place], [address] Eosinophils/100 WBC (Bld) 1.0 % Normal 0-5 [facility] Comment on above: Performed By: #### L 501.0250, L100.0100, L3890.6006, BTS, L509.8002 ####[facility] [address] [place], [address] Erythrocyte distribution width (RBC) [Ratio] 13.5 % Normal 11.6-14.6 [facility] Comment on above: Performed By: #### L 501.0250, L100.0100, L3890.6006, BTS, L509.8002 ####[facility] [address] [place], [address] Hematocrit (Bld) [Volume fraction] 37.5 % Normal 37-47 [facility] Comment on above: Performed By: #### L 501.0250, L100.0100, L3890.6006, BTS, L509.8002 ####[facility] [address] [place], [address] Hemoglobin (Bld) [Mass/Vol] 12.7 g/dL Normal 12.0-15.0 [facility] Comment on above: Performed By: #### L 501.0250, L100.0100, L3890.6006, BTS, L509.8002 ####[facility] [address] [place], [address] IG% 0.800 Normal 0.0-0.9 [facility] Comment on above: Result Comment: IG% - Immature Granulocytes (promyelocytes, myelocytes andmetamyelocytes) > 1% indicates that a LEFT SHIFT is Present. Performed By: #### L 501.0250, L100.0100, L3890.6006, BTS, L509.8002 ####[facility] [address] [place], [address] Lymphocytes/100 WBC (Bld) 19.1 % Normal 19-41 [facility] Comment on above: Performed By: #### L 501.0250, L100.0100, L3890.6006, BTS, L509.8002 ####[facility] [address] [place], [address] MCH (RBC) [Entitic mass] 29.7 pg Normal 27.0-32.0 [facility] Comment on above: Performed By: #### L 501.0250, L100.0100, L3890.6006, BTS, L509.8002 ####[facility] [address] [place], [address] MCHC (RBC) [Mass/Vol] 33.9 g/dL Normal 32-36 [facility] Comment on above: Performed By: #### L 501.0250, L100.0100, L3890.6006, BTS, L509.8002 ####[facility] [address] [place], [address] MCV (RBC) [Entitic vol] 87.6 fL Normal 81-99 [facility] Comment on above: Performed By: #### L 501.0250, L100.0100, L3890.6006, BTS, L509.8002 ####[facility] [address] [place], [address] Monocytes/100 WBC (Bld) 4.0 % Normal 0-10 [facility] Comment on above: Performed By: #### L 501.0250, L100.0100, L3890.6006, BTS, L509.8002 ####[facility] [address] [place], [address] Neutrophils/100 WBC (Bld) 74.8 % High 47-70 [facility] Comment on above: Performed By: #### L 501.0250, L100.0100, L3890.6006, BTS, L509.8002 ####[facility] [address] [place], [address] Nucleated RBC (Bld) [#/Vol] 0 10*3/uL Normal 0-5 [facility] Comment on above: Performed By: #### L 501.0250, L100.0100, L3890.6006, BTS, L509.8002 ####[facility] [address] [place], [address] Platelet mean volume (Bld) [Entitic vol] 9.5 fL Normal 6.2-12.0 [facility] Comment on above: Performed By: #### L 501.0250, L100.0100, L3890.6006, BTS, L509.8002 ####[facility] [address] [place], [address] Platelets (Bld) [#/Vol] 300 10*3/uL Normal 150-450 [facility] Comment on above: Performed By: #### L 501.0250, L100.0100, L3890.6006, BTS, L509.8002 ####[facility] [address] [place], [address] RBC (Bld) [#/Vol] 4.28 10*6/uL Normal 4.2-5.4 [facility] Comment on above: Performed By: #### L 501.0250, L100.0100, L3890.6006, BTS, L509.8002 ####[facility] [address] [place], [address] RDW SD 42.8 fl Normal 35.1-43.9 [facility] Comment on above: Performed By: #### L 501.0250, L100.0100, L3890.6006, BTS, L509.8002 ####[facility] [address] [place], [address] WBC (Bld) [#/Vol] 11.8 10*3/uL High 4.4-11.0 [facility] Comment on above: Performed By: #### L 501.0250, L100.0100, L3890.6006, BTS, L509.8002 ####[facility] [address] [place], [address] Eosinophil percentageOrdered By: Edel Diehl on 02-26-2025 Eosinophils/100 WBC (Bld) 1.0 % 0-5 [facility] Erythrocyte distribution wid th ratioOrdered By: Edel Diehl on 02-26-2025 Erythrocyte distribution width (RBC) [Ratio] 13.5 % 11.6-14.6 [facility] Erythrocyte distribution wid th standard deviationOrdered By: Edel Diehl on 02-26-2025 Erythrocyte distribution width (RBC) [Ratio] 42.8 fl 35.1-43.9 [facility] Glucose Challenge Gest 1H 50 trini 02-26-2025 GLU GEST 50g 1H 172 mg/dL High 70-140 [facility] Comment on above: Performed By: #### L 501.0250, L100.0100, L3890.6006, BTS, L509.8002 ####[facility] [address] [place], [address] Glucose measurement at 2 haven rs post-dose gestational glucose tolerance testOrdered By: Edel Diehl on 02-26-2025 Glucose [Mass/Vol] 172 mg/dL High 70-140 [facility] HIVon 02-26-2025 HIV Non-Reactive Normal Nonreactive [facility] Comment on above: Result Comment: Non- ReactiveReactiveRepeatedly reactive samples must be confirmed according [facility] [place] recommended confirmatory algorithms. The subresults foreither HIVAG or AHIV can be used as an aid in the selectionof the confirmation algorithm for reactive samples.Send out specimens with Reactive results to [facility] forconfirmation.Order the HIV antibody detection and differentiation:#[id number] Performed By: #### L 501.0250, L100.0100, L3890.6006, BTS, L509.8002 ####[facility] [address] [place], [place], [id number] Hematocrit Auto (Bld) [Volum e fraction]Ordered By: Edel Diehl on 02-26-2025 Hematocrit (Bld) [Volume fraction] 37.5 % 37-47 [facility] Hemoglobin measurementOrdere d By: Edel Diehl on 02-26-2025 Hemoglobin (Bld) [Mass/Vol] 12.7 g/dL 12.0-15.0 [facility] Immature granulocytes/100 WB C Auto (Bld)Ordered By: Edel Diehl on 02-26-2025 Immature granulocytes/100 WBC (Bld) 0.800 % 0.0-0.9 [facility] Comment on above: IG% - Immature Granu locytes (promyelocytes, myelocytes and metamyelocytes) > 1% indicates that a LEFT SHIFT is Present. Laboratory - Chemistry and C hemistry - challengeOrdered By: Apple Lao on 02-26-2025 Glucose Ql (U) Negative [facility] Laboratory - UrinalysisOrder ed By: Apple Lao on 02-26-2025 Protein Ql (U) Negative [facility] MCV (mean corpuscular volume ) determinationOrdered By: Edel Diehl on 02-26-2025 MCV (RBC) [Entitic vol] 87.6 fL 81-99 [facility] Mean corpuscular hemoglobin (MCH) determinationOrdered By: Edel Diehl on 02-26-2025 MCH (RBC) [Entitic mass] 29.7 pg 27.0-32.0 [facility] Mean corpuscular hemoglobin concentration (MCHC) determinationOrdered By: Edel Diehl on 02-26-2025 MCHC (RBC) [Mass/Vol] 33.9 g/dL 32-36 [facility] Mean platelet volume determi nationOrdered By: Edel Diehl on 02-26-2025 Platelet mean volume (Bld) [Entitic vol] 9.5 fL 6.2-12.0 [facility] Monocyte percentageOrdered B y: Edel Diehl on 02-26-2025 Monocytes/100 WBC (Bld) 4.0 % 0-10 [facility] Neutrophil percentageOrdered By: Edel Diehl on 02-26-2025 Neutrophils/100 WBC (Bld) 74.8 % High 47-70 [facility] No Panel InformationOrdered By: Edel Diehl on 02-26-2025 HIV (1&2) Antibody Non-Reactive Nonreactive [facility] Comment on above: Non-ReactiveReactive Repeatedly reactive samples must be confirmed according to CDC recommended confirmatory algorithms. The subresults for either HIVAG or AHIV can be used as an aid in the selection of the confirmation algorithm for reactive samples.Send out specimens with Reactive results to [facility] for confirmation.Order the HIV antibody detection and differentiation: #[id number] Nucleated red blood cell per centageOrdered By: Edel Diehl on 02-26-2025 Nucleated RBC/100 WBC (Bld) [Ratio] 0 % 0-5 [facility] Shaper Operator Office Visit Reporton 02-26-2025 Shaper Operator Office Visit Report Normal [facility] Platelet countOrdered By: Mickey colenegro Shanita on 02-26-2025 Platelets (Bld) [#/Vol] 300 10*3/uL 150-450 [facility] RBC Auto (Bld) [#/Vol]Ordere d By: Edel Diehl on 02-26-2025 RBC (Bld) [#/Vol] 4.28 10*6/uL 4.2-5.4 [facility] Syphilis Antibodieson 2024 Syphilis Abs Non-Reactive Normal Nonreactive [facility] Comment on above: Performed By: #### L 501.0250, L100.0100, L3890.6006, BTS, L509.8002 ####[facility] [address] [place], [place], [id number] Type AND Screenon 02-26-2025 ABO and Rh group Nom (Bld) Blood group B Rh(D) negative Normal [facility] Comment on above: Order Comment: PN Performed By: #### L 501.0250, L100.0100, L3890.6006, BTS, L509.8002 ####[facility] [address] [place], [place], [id number] White blood cell (WBC) count Ordered By: Edel Diehl on 02-26-2025 WBC (Bld) [#/Vol] 11.8 10*3/uL High 4.4-11.0 [facility] Progress Noteon 02-23-2025 [employer] Authentication Interface Message Text MEDICAL DECISION MAKING: [...] concerns arise Patient was seen in [facility] cardiology clinic today at the request of [...] there are questions regarding these findings. Normal [facility] Shaper Operator Office Visit Reporton 01-29-2025 Shaper Operator Office Visit Report Normal [facility] Laboratory - Chemistry and C hemistry - challengeOrdered By: Apple Lao on 01-01-2025 Glucose Ql (U) Negative [facility] Laboratory - UrinalysisOrder ed By: Apple Lao on 01-01-2025 Protein Ql (U) Negative [facility] Shaper Operator Office Visit Reporton 01-01-2025 Shaper Operator Office Visit Report Normal [facility] Shaper Operator Office Visit Reporton 12-03-2024 Shaper Operator Office Visit Report Normal [facility] 12 Lead EKGon 11-10-2024 12 Lead EKG Normal [facility] Absolute lymphocyte countOrd ered By: Ld Fermin on 11-10-2024 Lymphocytes Auto (Unsp spec) [#/Vol] 3.59 10*3/uL 0.83-4.51 [facility] Absolute neutrophil countOrd ered By: Ld Fermin on 11-10-2024 Neutrophils (Bld) [#/Vol] 9.3 10*3/uL High 2.0-7.7 [facility] Automated lymphocyte count a s percentage of total leukocytesOrdered By: Ld Huio on 11-10-2024 Lymphocytes/100 WBC Auto (Unsp spec) 25.8 % 19-41 [facility] Basic Metabolic Profile (BMP )on 11-10-2024 BUN/CRE 8.8 RATIO Low 10-20 [facility] Comment on above: Performed By: #### L 100.0100, L500.2500 ####[facility] [address] [place], [address] CA,Total 9.9 mg/dL Normal 8.5-10.1 [facility] Comment on above: Performed By: #### L 100.0100, L500.2500 ####[facility] [address] [place], [address] Chloride [Moles/Vol] 108 mmol/L High 98-107 [facility] Comment on above: Performed By: #### L 100.0100, L500.2500 ####[facility] [address] [place], [address] CO2 [Moles/Vol] 24.0 mmol/L Normal 21.0-32.0 [facility] Comment on above: Performed By: #### L 100.0100, L500.2500 ####[facility] [address] [place], [address] Creatinine [Mass/Vol] 0.57 mg/dL Normal 0.55-1.02 [facility] Comment on above: Result Comment: The validity of the calculated GFR GFRAA in patients over70 years has not been determined. Clinical correlation isessential. Performed By: #### L 100.0100, L500.2500 ####[facility] [address] [place], [address] ECRCL 167.72 ml/min Normal [facility] Comment on above: Performed By: #### L 100.0100, L500.2500 ####[facility] [address] [place], [address] EST GFR - AA 157 mL/min Normal >60 [facility] Comment on above: Result Comment: Afri can Maltese GFR Calc Performed By: #### L 100.0100, L500.2500 ####[facility] [address] [place], [address] GAP 8 Normal 5-15 [facility] Comment on above: Performed By: #### L 100.0100, L500.2500 ####[facility] [address] [place], [address] GFR/1.73 sq M.predicted among non-blacks MDRD (S/P/Bld) [Vol rate/Area] 129 mL/min/{1.73_m2} Normal >60 [facility] Comment on above: Result Comment: Non- GFR Calc Performed By: #### L 100.0100, L500.2500 ####[facility] [address] [place], [address] Glucose [Mass/Vol] 86 mg/dL Normal 74-106 [facility] Comment on above: Performed By: #### L 100.0100, L500.2500 ####[facility] [address] [place], [address] Potassium [Moles/Vol] 3.4 mmol/L Low 3.5-5.1 [facility] Comment on above: Performed By: #### L 100.0100, L500.2500 ####[facility] [address] [place], [address] Sodium [Moles/Vol] 140 mmol/L Normal 136-145 [facility] Comment on above: Performed By: #### L 100.0100, L500.2500 ####[facility] [address] [place], [address] Urea nitrogen [Mass/Vol] 5 mg/dL Low 7-18 [facility] Comment on above: Performed By: #### L 100.0100, L500.2500 ####[facility] [address] [place], [address] Basophil percentageOrdered B y: Ld Fermin on 11-10-2024 Basophils/100 WBC (Bld) 0.5 % 0-1 [facility] Blood urea nitrogen (BUN)/cr eatinine ratioOrdered By: Ld Fermin on 11-10-2024 Urea nitrogen/Creatinine [Mass ratio] 8.8 mg/mg Low 10-20 [facility] CBC W/Diff, Automatedon - Absolute Lymph 3.59 X10 3/uL Normal 0.83-4.51 [facility] Comment on above: Performed By: #### L 100.0100, L500.2500 ####[facility] [address] [place], [address] Absolute Neut 9.3 X10 3/uL High 2.0-7.7 [facility] Comment on above: Performed By: #### L 100.0100, L500.2500 ####[facility] [address] [place], [address] Basophils/100 WBC (Bld) 0.5 % Normal 0-1 [facility] Comment on above: Performed By: #### L 100.0100, L500.2500 ####[facility] [address] [place], [address] Eosinophils/100 WBC (Bld) 1.2 % Normal 0-5 [facility] Comment on above: Performed By: #### L 100.0100, L500.2500 ####[facility] [address] [place], [address] Erythrocyte distribution width (RBC) [Ratio] 12.8 % Normal 11.6-14.6 [facility] Comment on above: Performed By: #### L 100.0100, L500.2500 ####[facility] [address] [place], [address] Hematocrit (Bld) [Volume fraction] 43.6 % Normal 37-47 [facility] Comment on above: Performed By: #### L 100.0100, L500.2500 ####[facility] [address] [place], [address] Hemoglobin (Bld) [Mass/Vol] 14.8 g/dL Normal 12.0-15.0 [facility] Comment on above: Performed By: #### L 100.0100, L500.2500 ####[facility] [address] [place], [address] IG% 0.600 Normal 0.0-0.9 [facility] Comment on above: Result Comment: IG% - Immature Granulocytes (promyelocytes, myelocytes andmetamyelocytes) > 1% indicates that a LEFT SHIFT is Present. Performed By: #### L 100.0100, L500.2500 ####[facility] [address] [place], [address] Lymphocytes/100 WBC (Bld) 25.8 % Normal 19-41 [facility] Comment on above: Performed By: #### L 100.0100, L500.2500 ####[facility] [address] [place], [address] MCH (RBC) [Entitic mass] 28.8 pg Normal 27.0-32.0 [facility] Comment on above: Performed By: #### L 100.0100, L500.2500 ####[facility] [address] [place], [address] MCHC (RBC) [Mass/Vol] 33.9 g/dL Normal 32-36 [facility] Comment on above: Performed By: #### L 100.0100, L500.2500 ####[facility] [address] [place], [address] MCV (RBC) [Entitic vol] 84.8 fL Normal 81-99 [facility] Comment on above: Performed By: #### L 100.0100, L500.2500 ####[facility] [address] [place], [address] Monocytes/100 WBC (Bld) 5.1 % Normal 0-10 [facility] Comment on above: Performed By: #### L 100.0100, L500.2500 ####[facility] [address] [place], [address] Neutrophils/100 WBC (Bld) 66.8 % Normal 47-70 [facility] Comment on above: Performed By: #### L 100.0100, L500.2500 ####[facility] [address] [place], [address] Nucleated RBC (Bld) [#/Vol] 0 10*3/uL Normal 0-5 [facility] Comment on above: Performed By: #### L 100.0100, L500.2500 ####[facility] [address] [place], [address] Platelet mean volume (Bld) [Entitic vol] 9.3 fL Normal 6.2-12.0 [facility] Comment on above: Performed By: #### L 100.0100, L500.2500 ####[facility] [address] [place], [address] Platelets (Bld) [#/Vol] 373 10*3/uL Normal 150-450 [facility] Comment on above: Performed By: #### L 100.0100, L500.2500 ####[facility] [address] [place], [address] RBC (Bld) [#/Vol] 5.14 10*6/uL Normal 4.2-5.4 [facility] Comment on above: Performed By: #### L 100.0100, L500.2500 ####[facility] [address] [place], [address] RDW SD 39.5 fl Normal 35.1-43.9 [facility] Comment on above: Performed By: #### L 100.0100, L500.2500 ####[facility] [address] [place], [address] WBC (Bld) [#/Vol] 13.9 10*3/uL High 4.4-11.0 [facility] Comment on above: Performed By: #### L 100.0100, L500.2500 ####[facility] [address] [place], [address] Carbon dioxide measurementOr dered By: Ld Fermin on 11-10-2024 CO2 [Moles/Vol] 24.0 mmol/L 21.0-32.0 [facility] Chloride measurementOrdered By: Ld Fermin on 11-10-2024 Chloride [Moles/Vol] 108 mmol/L High 98-107 [facility] D-Dimer Quantitative (DVT/PE )on 11-10-2024 D-DIMER QUANT < 0.27 Low 0.27-0.49 [facility] Comment on above: Result Comment: NORM AL D-Dimer level (<0.50) indicates no DVT or PE. Performed By: #### L 300.8000 ####[facility] [address] [place], [address] Emergency Department Summary on 11-10-2024 Emergency Department Summary Normal [facility] Eosinophil percentageOrdered By: Ld Fermin on 11-10-2024 Eosinophils/100 WBC (Bld) 1.2 % 0-5 [facility] Erythrocyte distribution wid th ratioOrdered By: Ldondina Fermin on 11-10-2024 Erythrocyte distribution width (RBC) [Ratio] 12.8 % 11.6-14.6 [facility] Erythrocyte distribution wid th standard deviationOrdered By: [facility] on 11-10-2024 Erythrocyte distribution width (RBC) [Ratio] 39.5 fl 35.1-43.9 [facility] Glomerular filtration rate ( GFR) estimationOrdered By: Ldondina Fermin on 11-10-2024 GFR/1.73 sq M.predicted among non-blacks MDRD (S/P/Bld) [Vol rate/Area] 129 mL/min/{1.73_m2} >60 [facility] Comment on above: Non- GFR Calc Glucose measurementOrdered B y: Ldondina Fermin on 11-10-2024 Glucose [Mass/Vol] 86 mg/dL 74-106 [facility] Hematocrit Auto (Bld) [Volum e fraction]Ordered By: [facility] 11-10-2024 Hematocrit (Bld) [Volume fraction] 43.6 % 37-47 [facility] Hemoglobin measurementOrdere d By: [facility] on 11-10-2024 Hemoglobin (Bld) [Mass/Vol] 14.8 g/dL 12.0-15.0 [facility] Immature granulocytes/100 WB C Auto (Bld)Ordered By: [facility] on 11-10-2024 Immature granulocytes/100 WBC (Bld) 0.600 % 0.0-0.9 [facility] Comment on above: IG% - Immature Granu locytes (promyelocytes, myelocytes and metamyelocytes) > 1% indicates that a LEFT SHIFT is Present. MCV (mean corpuscular volume ) determinationOrdered By: [facility] on 11-10-2024 MCV (RBC) [Entitic vol] 84.8 fL 81-99 [facility] Mean corpuscular hemoglobin (MCH) determinationOrdered By: [facility] 11-10-2024 MCH (RBC) [Entitic mass] 28.8 pg 27.0-32.0 [facility] Mean corpuscular hemoglobin concentration (MCHC) determinationOrdered By: [facility] 11-10-2024 MCHC (RBC) [Mass/Vol] 33.9 g/dL 32-36 [facility] Mean platelet volume determi nationOrdered By: Ld Fermin on 11-10-2024 Platelet mean volume (Bld) [Entitic vol] 9.3 fL 6.2-12.0 [facility] Monocyte percentageOrdered B y: Ld Fermin on 11-10-2024 Monocytes/100 WBC (Bld) 5.1 % 0-10 [facility] Neutrophil percentageOrdered By: Ld Fermin on 11-10-2024 Neutrophils/100 WBC (Bld) 66.8 % 47-70 [facility] Nucleated red blood cell per centageOrdered By: Ldondina Fermin on 11-10-2024 Nucleated RBC/100 WBC (Bld) [Ratio] 0 % 0-5 [facility] Platelet countOrdered By: Pedro Fermin on 11-10-2024 Platelets (Bld) [#/Vol] 373 10*3/uL 150-450 [facility] Potassium measurementOrdered By: Ld Fermin on 11-10-2024 Potassium [Moles/Vol] 3.4 mmol/L Low 3.5-5.1 [facility] RBC Auto (Bld) [#/Vol]Ordere d By: Ld Fermin on 11-10-2024 RBC (Bld) [#/Vol] 5.14 10*6/uL 4.2-5.4 [facility] Serum anion gap measurementO rdered By: Ld Fermin on 11-10-2024 Anion gap [Moles/Vol] 8 mmol/L 5-15 [facility] Serum or plasma calcium kenisha urement (mass/volume)Ordered By: Ld Fermin on 11-10-2024 Calcium [Mass/Vol] 9.9 mg/dL 8.5-10.1 [facility] Serum or plasma creatinine m easurement (mass/volume)Ordered By: Ldondina Fermin on 11-10-2024 Creatinine [Mass/Vol] 0.57 mg/dL 0.55-1.02 [facility] Comment on above: The validity of the calculated GFR & GFRAA in patients over 70 years has not been determined. Clinical correlation is essential. Serum or plasma urea nitroge n measurement (mass/volume)Ordered By: Ld Fermin on 11-10-2024 Urea nitrogen [Mass/Vol] 5 mg/dL Low 7-18 [facility] Sodium levelOrdered By: Ld Fermin on 11-10-2024 Sodium [Moles/Vol] 140 mmol/L 136-145 [facility] White blood cell (WBC) count Ordered By: Ld Fermin on 11-10-2024 WBC (Bld) [#/Vol] 13.9 10*3/uL High 4.4-11.0 [facility] Laboratory - Chemistry and C hemistry - challengeOrdered By: Edel Diehl on 11-05-2024 Glucose Ql (U) Negative [facility] Laboratory - UrinalysisOrder ed By: Edel Diehl on 11-05-2024 Protein Ql (U) Negative [facility] Shaper Operator Office Visit Reporton 11-05-2024 Shaper Operator Office Visit Report Normal [facility] HIV - WCHon 10-13-2024 HIV Non-Reactive Normal Nonreactive [facility] Comment on above: Order Comment: Reaso n for Exam: Performed By: #### L 3410.9999, L501.9985, BTS, L3890.6100, L501.9520, L3890.6005, L3890.6300, L506.0400, L100.0100, L509.4005, L509.8000 ####[facility] [address] [place], [address] L3410.9999on 10-13-2024 [facility] Misc. COMMENT Normal . [facility] Comment on above: Order Comment: 56530 4TSH RECEPTOR AB SERUM RF Result Comment: Test Ordered: [id number] Thyrotropin Receptor Ab, SerumThyrotropin Receptor Ab, Serum <1.10 IU/L Reference Range: 0.00-1.75Performed at: - [facility] [address] [id number] Director: Sue Martinez MD, Phone: [phone] at: [facility] CenterOkrchy[address] [place], [place] [id number] Director: Huan Kuhn PhD, Phone: [phone] Performed By: #### L 3410.9999, L501.9985, BTS, L3890.6100, L501.9520, L3890.6005, L3890.6300, L506.0400, L100.0100, L509.4005, L509.8000 ####[facility] [address] [place], [address] Chlamydia/GC CONCHITA aptimaon CHLAMY,NUC ACID Negative Normal Negative [facility] Comment on above: Performed By: #### L 7000.1800, M100.2200, L505.5000 ####[facility] [address] [place], [address] GC BY NUC ACID Negative Normal Negative [facility] Comment on above: Result Comment: Perf ormed at: =G - [facility] [address] [id number] Director: Ary Grider MD, Phone: [phone] Performed By: #### L 7000.1800, M100.2200, L505.5000 ####[facility] [address] [place], [address] Hepatitis B Surface Antigeno n 10-12-2024 HEP B Surf Ag Non-Reactive Normal Nonreactive [facility] Comment on above: Order Comment: Reaso n for Exam: Performed By: #### L 3410.9999, L501.9985, BTS, L3890.6100, L501.9520, L3890.6005, L3890.6300, L506.0400, L100.0100, L509.4005, L509.8000 ####[facility] [address] [place], [address] Hepatitis C Antibodyon 10-12 Hepatitis C AB Non-Reactive Normal Nonreactive [facility] Comment on above: Order Comment: Reaso n for Exam: Result Comment: Non Reactive: < 0.8 Equivocal: >/= 0.8 to < 1.0 Reactive: >/= 1.0The CDC requires that a reactive/equivocal HCV antibodyresult be sent out for confirmation. HCV Quant by PCRtesting. Performed By: #### L 3410.9999, L501.9985, BTS, L3890.6100, L501.9520, L3890.6005, L3890.6300, L506.0400, L100.0100, L509.4005, L509.8000 ####[facility] [address] [place], [place], [address] L509.8000on 10-12-2024 Syphilis Abs Non-Reactive Normal [facility] Comment on above: Order Comment: Reaso n for Exam: Performed By: #### L 3410.9999, L501.9985, BTS, L3890.6100, L501.9520, L3890.6005, L3890.6300, L506.0400, L100.0100, L509.4005, L509.8000 ####[facility] [address] [place], [address] Rubella IgGon 10-12-2024 Rubella IgG Reactive Normal Nonreactive [facility] Comment on above: Order Comment: Reaso n for Exam: Result Comment: Anti body Results Interpretation of Immune Status Non Reactive Presumed Non-Immune Equivocal Equivocal Reactive Presumed Immune Performed By: #### L 3410.9999, L501.9985, BTS, L3890.6100, L501.9520, L3890.6005, L3890.6300, L506.0400, L100.0100, L509.4005, L509.8000 ####[facility] [address] [place], [place], [id number] Urine Cultureon 10-12-2024 [facility] Mixed Gram Positive Organisms [place] Count 25,000-50,000 MIXC Mixed contaminants. Submit a new specimen if indicated. Normal [facility] Comment on above: Performed By: #### L 7000.1800, M100.2200, L505.5000 ####[facility] [address] [place], [address] CBC W/Diff, Automatedon 01- 0-2024 Absolute Lymph 2.85 X10 3/uL Normal 0.83-4.51 [facility] Comment on above: Performed By: #### L 3410.9999, L501.9985, BTS, L3890.6100, L501.9520, L3890.6005, L3890.6300, L506.0400, L100.0100, L509.4005, L509.8000 ####[facility] [address] [place], [address] Absolute Neut 10.8 X10 3/uL High 2.0-7.7 [facility] Comment on above: Performed By: #### L 3410.9999, L501.9985, BTS, L3890.6100, L501.9520, L3890.6005, L3890.6300, L506.0400, L100.0100, L509.4005, L509.8000 ####[facility] [address] [place], [address] Basophils/100 WBC (Bld) 0.5 % Normal 0-1 [facility] Comment on above: Performed By: #### L 3410.9999, L501.9985, BTS, L3890.6100, L501.9520, L3890.6005, L3890.6300, L506.0400, L100.0100, L509.4005, L509.8000 ####[facility] [address] [place], [address] Eosinophils/100 WBC (Bld) 1.4 % Normal 0-5 [facility] Comment on above: Performed By: #### L 3410.9999, L501.9985, BTS, L3890.6100, L501.9520, L3890.6005, L3890.6300, L506.0400, L100.0100, L509.4005, L509.8000 ####[facility] [address] [place], [place], [phone](544) Erythrocyte distribution width (RBC) [Ratio] 12.8 % Normal 11.6-14.6 [facility] Comment on above: Performed By: #### L 3410.9999, L501.9985, BTS, L3890.6100, L501.9520, L3890.6005, L3890.6300, L506.0400, L100.0100, L509.4005, L509.8000 ####[facility] [address] [place], [address](645) Hematocrit (Bld) [Volume fraction] 41.2 % Normal 37-47 [facility] Comment on above: Performed By: #### L 3410.9999, L501.9985, BTS, L3890.6100, L501.9520, L3890.6005, L3890.6300, L506.0400, L100.0100, L509.4005, L509.8000 ####[facility] [address] [place], [place], [phone](942) Hemoglobin (Bld) [Mass/Vol] 14.1 g/dL Normal 12.0-15.0 [facility] Comment on above: Performed By: #### L 3410.9999, L501.9985, BTS, L3890.6100, L501.9520, L3890.6005, L3890.6300, L506.0400, L100.0100, L509.4005, L509.8000 ####[facility] [address] [place], [place], [phone](614) IG% 0.500 Normal 0.0-0.9 [facility] Comment on above: Result Comment: IG% - Immature Granulocytes (promyelocytes, myelocytes andmetamyelocytes) > 1% indicates that a LEFT SHIFT is Present. Performed By: #### L 3410.9999, L501.9985, BTS, L3890.6100, L501.9520, L3890.6005, L3890.6300, L506.0400, L100.0100, L509.4005, L509.8000 ####[facility] [address] [place], [address] Lymphocytes/100 WBC (Bld) 19.2 % Normal 19-41 [facility] Comment on above: Performed By: #### L 3410.9999, L501.9985, BTS, L3890.6100, L501.9520, L3890.6005, L3890.6300, L506.0400, L100.0100, L509.4005, L509.8000 ####[facility] [address] [facility] [place], [address] MCH (RBC) [Entitic mass] 28.8 pg Normal 27.0-32.0 [facility] Comment on above: Performed By: #### L 3410.9999, L501.9985, BTS, L3890.6100, L501.9520, L3890.6005, L3890.6300, L506.0400, L100.0100, L509.4005, L509.8000 ####[facility] [address] [place], [address] MCHC (RBC) [Mass/Vol] 34.2 g/dL Normal 32-36 [facility] Comment on above: Performed By: #### L 3410.9999, L501.9985, BTS, L3890.6100, L501.9520, L3890.6005, L3890.6300, L506.0400, L100.0100, L509.4005, L509.8000 ####[facility] [address] [place], [address] MCV (RBC) [Entitic vol] 84.1 fL Normal 81-99 [facility] Comment on above: Performed By: #### L 3410.9999, L501.9985, BTS, L3890.6100, L501.9520, L3890.6005, L3890.6300, L506.0400, L100.0100, L509.4005, L509.8000 ####[facility] [address] [place], [address] Monocytes/100 WBC (Bld) 5.2 % Normal 0-10 [facility] Comment on above: Performed By: #### L 3410.9999, L501.9985, BTS, L3890.6100, L501.9520, L3890.6005, L3890.6300, L506.0400, L100.0100, L509.4005, L509.8000 ####[facility] [address] [place], [address] Neutrophils/100 WBC (Bld) 73.2 % High 47-70 [facility] Comment on above: Performed By: #### L 3410.9999, L501.9985, BTS, L3890.6100, L501.9520, L3890.6005, L3890.6300, L506.0400, L100.0100, L509.4005, L509.8000 ####[facility] [address] [place], [address] Nucleated RBC (Bld) [#/Vol] 0 10*3/uL Normal 0-5 [facility] Comment on above: Performed By: #### L 3410.9999, L501.9985, BTS, L3890.6100, L501.9520, L3890.6005, L3890.6300, L506.0400, L100.0100, L509.4005, L509.8000 ####[facility] [address] [place], [address] Platelet mean volume (Bld) [Entitic vol] 9.1 fL Normal 6.2-12.0 [facility] Comment on above: Performed By: #### L 3410.9999, L501.9985, BTS, L3890.6100, L501.9520, L3890.6005, L3890.6300, L506.0400, L100.0100, L509.4005, L509.8000 ####[facility] [address] [place], [address] Platelets (Bld) [#/Vol] 417 10*3/uL Normal 150-450 [facility] Comment on above: Performed By: #### L 3410.9999, L501.9985, BTS, L3890.6100, L501.9520, L3890.6005, L3890.6300, L506.0400, L100.0100, L509.4005, L509.8000 ####[facility] [address] [place], [address] RBC (Bld) [#/Vol] 4.90 10*6/uL Normal 4.2-5.4 [facility] Comment on above: Performed By: #### L 3410.9999, L501.9985, BTS, L3890.6100, L501.9520, L3890.6005, L3890.6300, L506.0400, L100.0100, L509.4005, L509.8000 ####[facility] [address] [place], [address] RDW SD 39.1 fl Normal 35.1-43.9 [facility] Comment on above: Performed By: #### L 3410.9999, L501.9985, BTS, L3890.6100, L501.9520, L3890.6005, L3890.6300, L506.0400, L100.0100, L509.4005, L509.8000 ####[facility] [address] [place], [place], [phone] WBC (Bld) [#/Vol] 14.8 10*3/uL High 4.4-11.0 [facility] Comment on above: Performed By: #### L 3410.9999, L501.9985, BTS, L3890.6100, L501.9520, L3890.6005, L3890.6300, L506.0400, L100.0100, L509.4005, L509.8000 ####[facility] [address] [place], [place], [id number] Hemoglobin A1con 10-09-2024 HbA1c (Bld) [Mass fraction] 5.2 % Normal 3.8-5.6 [facility] Comment on above: Result Comment: Norm al < 5.7 % Prediabetic 5.7 - 6.4 % Diabetic >or= 6.5 % Please note range changes. Performed By: #### L 3410.9999, L501.9985, BTS, L3890.6100, L501.9520, L3890.6005, L3890.6300, L506.0400, L100.0100, L509.4005, L509.8000 ####[facility] [address] [place], [place], [address] Shaper Operator Office Visit Reporton 10-09-2024 Shaper Operator Office Visit Report Normal [facility] T4 Free Directon 10-09-2024 T4 FREE DIRECT 1.29 ng/dL Normal 0.76-1.46 [facility] Comment on above: Performed By: #### L 3410.9999, L501.9985, BTS, L3890.6100, L501.9520, L3890.6005, L3890.6300, L506.0400, L100.0100, L509.4005, L509.8000 ####[facility] [address] [place], [address] Thyroid Stim Hormone (TSH)on 10-09-2024 TSH 1.180 uIU/mL Normal 0.358-3.740 [facility] Comment on above: Performed By: #### L 3410.9999, L501.9985, BTS, L3890.6100, L501.9520, L3890.6005, L3890.6300, L506.0400, L100.0100, L509.4005, L509.8000 ####[facility] [address] [place], [address] Type AND Screenon 10-09-2024 Ab SCREEN GEL Negative Normal [facility] Comment on above: Order Comment: PN Performed By: #### L 3410.9999, L501.9985, BTS, L3890.6100, L501.9520, L3890.6005, L3890.6300, L506.0400, L100.0100, L509.4005, L509.8000 ####[facility] [address] [place], [address] Urine Drug Screen (VISTA)on 10-09-2024 AMPHETAMINES Negative Normal <1000 ng/mL [facility] Comment on above: Order Comment: UNK Performed By: #### L 7000.1800, M100.2200, L505.5000 ####[facility] [address] [place], [address] BARBITIURATES Negative Normal < 200 ng/mL [facility] Comment on above: Order Comment: UNK Performed By: #### L 7000.1800, M100.2200, L505.5000 ####[facility] [address] [place], [address] BENZODIAZIPINE Negative Normal < 200 ng/mL [facility] Comment on above: Order Comment: UNK Performed By: #### L 7000.1800, M100.2200, L505.5000 ####[facility] [address] [place], [address] COCAINE Negative Normal < 300 ng/mL [facility] Comment on above: Order Comment: UNK Performed By: #### L 7000.1800, M100.2200, L505.5000 ####[facility] [address] [place], [address] ECSTACY Negative Normal < 500 ng/mL [facility] Comment on above: Order Comment: UNK Performed By: #### L 7000.1800, M100.2200, L505.5000 ####[facility] [address] [place], [address] METHADONE Negative Normal < 300 ng/mL [facility] Comment on above: Order Comment: UNK Performed By: #### L 7000.1800, M100.2200, L505.5000 ####[facility] [address] [place], [address] OPIATES Negative Normal < 300 ng/mL [facility] Comment on above: Order Comment: UNK Performed By: #### L 7000.1800, M100.2200, L505.5000 ####[facility] [address] [place], [address] PCP Negative Normal < 25 ng/mL [facility] Comment on above: Order Comment: UNK Performed By: #### L 7000.1800, M100.2200, L505.5000 ####[facility] [address] [place], [address] THC Negative Normal < 50 ng/mL [facility] Comment on above: Order Comment: UNK Performed By: #### L 7000.1800, M100.2200, L505.5000 ####[facility] [address] [place], [address] VISTA UDS PH 6 Normal [facility] Comment on above: Order Comment: UNK Performed By: #### L 7000.1800, M100.2200, L505.5000 ####[facility] [address] [place], [address] Choriogonadotropin.beta subu niton 10-02-2024 [place] [address] m[IU]/mL High <5 [facility] Comment on above: Order Comment: Total HCG measurement is performed using the [employer]aver[employer] Access Immunoassay which detects intact HCG and free beta HCG subunit. This test is not indicated for use as a tumor marker. HCG testing is performed using a different test methodology at [facility] than other [facility]. Direct result comparison should only be made [...] By: #### 3 4549-6 #### DWAYNE Nair ([id number]) [facility] [address] [place] [address] Estradiolon 10-02-2024 E2 [Mass/Vol] 506 pg/mL Normal [facility] Comment on above: Order Comment: REF V ALUESFOLLICULAR PHASE 20-144MID CYCLE 64-357LUTEAL PHASE 56-214POSTMENOPAUSE < 32PREPUBERTY < 20FEMALE 10-18Y 8-110MALE 10-18Y < 20ADULT MALE < 40 Performed By: #### 3 4549-6 #### DWAYNE Nair ([id number]) [facility] [address] [place] [address] Progesteroneon 10-02-2024 Progesterone [Mass/Vol] 26.5 ng/mL Normal [facility] Comment on above: Result Comment: Ref Values Male <0.3- 1.2 Follicular Phase <0.3- 1.4 Luteal Phase 3.3-25.6 Mid-Luteal Phase 4.4-28.0 Postmenopausal <0.3- 0.7 Females: 1st Trimester 11.2- 90.0 2nd Trimester 25.6- 89.4 3RD Trimester 48.4-422.5 Patients receiving DHEA-S supplements may show false elevation of progesterone for results near 1.0 ng/mL. Contact laboratory at [phone] if alternative testing is needed. Performed By: #### 3 4549-6 #### DWAYNE Nair ([id number]) [facility] [address] [place] [address] US PELVIS OB TRANSABDOMINAL W TRANSVAGINAL UP TO 1ST TRIMESTERon 10-02-2024 US PELVIS OB TRANSABDOMINAL W TRANSVAGINAL UP TO 1ST TRIMESTER Interpreted By: Dyllan De Jesus, STUDY: US PELVIS OB TRANSABDOMINAL W TRANSVAGINAL UP TO 1ST TRIMESTER; 10/02/2024 9:55 am INDICATION: Signs/Symptoms:. COMPARISON: None. ACCESSION NUMBER(S): [id number] ORDERING CLINICIAN: LEVON BRAXTON TECHNIQUE: Multiple grayscale [...] De Jesus 10/02/2024 11:52 AM Dictation workstation: [id number] [facility] US Pelvis transvaginalon 1. Single live intrauterine . 2. Estimated gestational age: 6 weeks 2 days +/-3 days. MACRO: None Signed by: Dyllan De Jesus 10/02/2024 11:52 AM Dictation workstation: [id number] [facility] Interpreted By: Dyllan Ferrara, STUDY: US PELVIS OB TRANSABDOMINAL W TRANSVAGINAL UP TO 1ST TRIMESTER; 10/02/2024 9:55 am INDICATION: Signs/Symptoms:. COMPARISON: None. ACCESSION NUMBER(S): [id number] ORDERING CLINICIAN: LEVON BRAXTON TECHNIQUE: Multiple grayscale [...] TO 1ST TRIMESTER; 10/02/2024 9:55 am INDICATION: Signs/Symptoms:. COMPARISON: None. ACCESSION NUMBER(S): [id number] ORDERING CLINICIAN: LEVON BRAXTON TECHNIQUE: Multiple grayscale [...] De Jesus 10/02/2024 11:52 AM Dictation workstation: [id number] [facility] Work Phone: Radiology Study observation (narrative) [facility] Work Phone: US Pelvis transvaginalOrdere d By: Dyllan De Jesus on 10-02-2024 [facility] Work Phone: Choriogonadotropin.beta subu niton 09-25-2024 [place] [address] m[IU]/mL High <5 [facility] Comment on above: Order Comment: Needs to go with a stat peoplesoft financials consultant Total HCG measurement is performed using the [employer] Access Immunoassay which detects intact HCG and free beta HCG subunit. This test is not indicated for use as a tumor marker. HCG testing is performed using a different test methodology at [facility] than other [facility]. Direct result comparison should only be made [...] By: #### 3 4549-6 #### DWAYNE Nair ([id number]) [facility]) [address] [place] [address] [id number] Estradiolon 09-25-2024 E2 [Mass/Vol] 423 pg/mL Normal [facility] Comment on above: Order Comment: Needs to go with a stat courierREF VALUESFOLLICULAR PHASE 20-144MID CYCLE 64-357LUTEAL PHASE 56-214POSTMENOPAUSE < 32PREPUBERTY < 20FEMALE 10-18Y 8-110MALE 10-18Y < 20ADULT MALE < 40 Performed By: #### 3 4549-6 #### DWAYNE Nair ([id number]) [facility] ([facility]) [address] [place] [address] [id number] Progesteroneon 09-25-2024 Progesterone [Mass/Vol] 37.3 ng/mL Normal [facility] Comment on above: Order Comment: Needs to go with a stat [employer] consultant Result Comment: Ref Values Male <0.3- 1.2 Follicular Phase <0.3- 1.4 Luteal Phase 3.3-25.6 Mid-Luteal Phase 4.4-28.0 Postmenopausal <0.3- 0.7 Females: 1st Trimester 11.2- 90.0 2nd Trimester 25.6- 89.4 3RD Trimester 48.4-422.5 Patients receiving DHEA-S supplements may show false elevation of progesterone for results near 1.0 ng/mL. Contact laboratory at [phone] if alternative testing is needed. Performed By: #### 3 4549-6 #### DWAYNE Nair ([id number]) [facility] ([facility]) [address] [place] [address] [id number] US PELVIS OB TRANSABDOMINAL W TRANSVAGINAL UP TO 1ST TRIMESTERon 09-25-2024 US PELVIS OB TRANSABDOMINAL W TRANSVAGINAL UP TO 1ST TRIMESTER Interpreted By: Dyllan De Jesus, STUDY: US PELVIS OB TRANSABDOMINAL W TRANSVAGINAL UP TO 1ST TRIMESTER; 09/25/2024 9:44 am INDICATION: Signs/Symptoms:POSITIVE TEST. COMPARISON: None. ACCESSION NUMBER(S): [id number] ORDERING CLINICIAN: LEVON BRAXTON TECHNIQUE: Multiple grayscale [...] De Jesus 09/25/2024 10:40 AM Dictation workstation: [id number] [facility] US Pelvis transvaginalon 1. Single intrauteri ne . 2. Estimated gestational age: 5 weeks 5 days +/-10 days. 3. No pole or cardiac motion was identified, though this is likely secondary to early gestational age. Correlation with serial beta HCG levels is recommended. Repeat examination can be obtained in 1-2 weeks if clinically warranted. MACRO: None Signed by: Dyllan De Jesus 09/25/2024 10:40 AM Dictation workstation: [id number] Interpreted By: Dyllan Ferrara, STUDY: US PELVIS OB TRANSABDOMINAL W TRANSVAGINAL UP TO 1ST TRIMESTER; 09/25/2024 9:44 am INDICATION: Signs/Symptoms:POSITIVE TEST. COMPARISON: None. ACCESSION NUMBER(S): [id number] ORDERING CLINICIAN: LEVON BRAXTON TECHNIQUE: Multiple grayscale [...] TO 1ST TRIMESTER; 09/25/2024 9:44 am INDICATION: Signs/Symptoms:POSITIVE TEST. COMPARISON: None. ACCESSION NUMBER(S): [id number] ORDERING CLINICIAN: LEVON BRAXTON TECHNIQUE: Multiple grayscale [...] De Jesus 09/25/2024 10:40 AM Dictation workstation: [id number] [facility] Work Phone: Radiology Study observation (narrative) [facility] Work Phone: US Pelvis transvaginalOrdere d By: Dyllan De Jesus on 09-25-2024 [facility] Work Phone: Choriogonadotropin.beta subu niton 09-15-2024 HCG.beta subunit Qn 889 m[IU]/mL High <5 [facility] Comment on above: Order Comment: Stat, send with peoples[employer] financial[employer] consultant Total HCG measurement is performed using the Tutu Nestor Access Immunoassay which detects intact HCG and free beta HCG subunit. This test is not indicated for use as a tumor marker. HCG testing is performed using a different test methodology at [facility] than other [facility]. Direct result comparison should only be made [...] By: #### 3 4549-6 #### DWAYNE Nair ([id number]) [facility] [address] [place] [address] Estradiolon 09-15-2024 E2 [Mass/Vol] 492 pg/mL Normal [facility] Comment on above: Order Comment: Stat, send with courierREF VALUESFOLLICULAR PHASE 20-144MID CYCLE 64-357LUTEAL PHASE 56-214POSTMENOPAUSE < 32PREPUBERTY < 20FEMALE 10-18Y 8-110MALE 10-18Y < 20ADULT MALE < 40 Performed By: #### 3 4549-6 #### DWAYNE Nair ([id number]) [facility] [address] [place] [address] Progesteroneon 09-15-2024 Progesterone [Mass/Vol] 31.2 ng/mL [facility] Comment on above: Order Comment: Stat, send with peoples[employer] financials consultant Result Comment: Ref Values Male <0.3- 1.2 Follicular Phase <0.3- 1.4 Luteal Phase 3.3-25.6 Mid-Luteal Phase 4.4-28.0 Postmenopausal <0.3- 0.7 Females: 1st Trimester 11.2- 90.0 2nd Trimester 25.6- 89.4 3RD Trimester 48.4-422.5 Patients receiving DHEA-S supplements may show false elevation of progesterone for results near 1.0 ng/mL. Contact laboratory at [phone] if alternative testing is needed. Performed By: #### 3 4549-6 #### DWAYNE Nair ([id number]) [facility] [address] [place] [address] Choriogonadotropin.beta subu niton 09-11-2024 HCG.beta subunit Qn [...] By: #### 2 243-4 #### DWAYNE Nair ([id number]) [facility] [address] [place] [address] Estradiolon 09-11-2024 E2 [Mass/Vol] 347 pg/mL Normal [facility] Comment on above: Order Comment: REF V ALUES FOLLICULAR PHASE 20-144 MID CYCLE 64-357 LUTEAL PHASE 56-214 POSTMENOPAUSE < 32 PREPUBERTY < 20 FEMALE 10-18Y 8-110 MALE 10-18Y < 20 ADULT MALE < 40 Performed By: #### 2 243-4 #### DWAYNE Nair ([id number]) [facility]) [address] [place] [address] 16427 Progesteroneon 09-11-2024 Progesterone [Mass/Vol] 43.6 ng/mL Normal [facility] Comment on above: Order Comment: Send with stat peoples[employer] financials consultant Result Comment: Ref Values Male <0.3- 1.2 Follicular Phase <0.3- 1.4 Luteal Phase 3.3-25.6 Mid-Luteal Phase 4.4-28.0 Postmenopausal <0.3- 0.7 Females: 1st Trimester 11.2- 90.0 2nd Trimester 25.6- 89.4 3RD Trimester 48.4-422.5 Patients receiving DHEA-S supplements may show false elevation of progesterone for results near 1.0 ng/mL. Contact laboratory at [phone] if alternative testing is needed. Performed By: #### 3 4549-6 #### DWAYNE Nair ([id number]) [facility] [address] [place] [address] Thyrotropinon 09-11-2024 TSH Qn 2.28 m[IU]/L Normal 0.44-3.98 [facility] Comment on above: Order Comment: REF V ALUES FOLLICULAR PHASE 20-144 MID CYCLE 64-357 LUTEAL PHASE 56-214 POSTMENOPAUSE < 32 PREPUBERTY < 20 FEMALE 10-18Y 8-110 MALE 10-18Y < 20 ADULT MALE < 40 Performed By: #### 2 243-4 #### DWAYNE Nair ([id number]) [facility]) [address] [place] [address] 42080 Choriogonadotropin.beta subu niton 09-09-2024 HCG.beta subunit Qn 101 m[IU]/mL High <5 [facility] Comment on above: Order Comment: REF [...] By: #### 2 243-4 #### DWAYNE Nair ([id number]) [facility] [address] [place] [address]1983 Progesteroneon 09-09-2024 Progesterone [Mass/Vol] 31.9 ng/mL [facility] Comment on above: Order Comment: REF [...] results near 1.0 ng/mL. Contact laboratory at [phone] if alternative testing is needed. Performed By: #### 2 243-4 #### DWAYNE Nair ([id number]) [facility] [address] [place] [address]38 Estradiolon 09-04-2024 E2 [Mass/Vol] 222 pg/mL [facility] Comment on above: Order Comment: REF V ALUES FOLLICULAR PHASE 20-144 MID CYCLE 64-357 LUTEAL PHASE 56-214 POSTMENOPAUSE < 32 PREPUBERTY < 20 FEMALE 10-18Y 8-110 MALE 10-18Y < 20 ADULT MALE < 40 Performed By: #### 2 243-4 #### DWAYNE Nair ([id number]) [facility] [address] [place] [address] 91063 Progesteroneon 09-04-2024 Progesterone [Mass/Vol] 33.6 ng/mL Normal [facility] Comment on above: Result Comment: Ref Values Male <0.3- 1.2 Follicular Phase <0.3- 1.4 Luteal Phase 3.3-25.6 Mid-Luteal Phase 4.4-28.0 Postmenopausal <0.3- 0.7 Females: 1st Trimester 11.2- 90.0 2nd Trimester 25.6- 89.4 3RD Trimester 48.4-422.5 Patients receiving DHEA-S supplements may show false elevation of progesterone for results near 1.0 ng/mL. Contact laboratory at [phone] if alternative testing is needed. Performed By: #### 2 243-4 #### DWAYNE Nair ([id number]) [facility] [address] [place] [address]2339 Progesteroneon 08-25-2024 Progesterone [Mass/Vol] 0.5 ng/mL Normal [facility] Comment on above: Order Comment: REF [...] results near 1.0 ng/mL. Contact laboratory at [phone] if alternative testing is needed. Performed By: #### 2 243-4 #### DWAYNE Nair ([id number]) [facility] [address] [place] [address] Estradiolon 08-21-2024 E2 [Mass/Vol] 427 pg/mL Normal [facility] Comment on above: Order Comment: REF V ALUES FOLLICULAR PHASE 20-144 MID CYCLE 64-357 LUTEAL PHASE 56-214 POSTMENOPAUSE < 32 PREPUBERTY < 20 FEMALE 10-18Y 8-110 MALE 10-18Y < 20 ADULT MALE < 40 Performed By: #### 2 243-4 #### DWAYNE Nair ([id number]) [facility] [address] [place] [address] Lutropinon 08-21-2024 Lutropin Qn 11.4 IU/L Normal [facility] Comment on above: Result Comment: LH R eference Values Follicular Phase 1.9-12.5 IU/L Mid-Cycle 8.7-76.3 IU/L Luteal Phase 0.5-16.9 IU/L Post Menopause 5.0-55.2 IU/L Children 0- 6.0 IU/L Adult Male 18-70 years 1.5- 9.3 IU/L Adult Male >70 years 3.1-34.6 IU/L Performed By: #### 2 1198-7 #### SHAUNA ROBISON ([id number]) [facility] ([facility]) [address] [place] [address] Progesteroneon 08-21-2024 Progesterone [Mass/Vol] 0.6 ng/mL Normal [facility] Comment on above: Result Comment: Ref Values Male <0.3- 1.2 Follicular Phase <0.3- 1.4 Luteal Phase 3.3-25.6 Mid-Luteal Phase 4.4-28.0 Postmenopausal <0.3- 0.7 Females: 1st Trimester 11.2- 90.0 2nd Trimester 25.6- 89.4 3RD Trimester 48.4-422.5 Patients receiving DHEA-S supplements may show false elevation of progesterone for results near 1.0 ng/mL. Contact laboratory at [phone] if alternative testing is needed. Performed By: #### 2 243-4 #### DWAYNE Nair ([id number]) [facility] [address] [place] [address] US PELVIS TRANSABDOMINAL WIT H TRANSVAGINALon 08-21-2024 US PELVIS TRANSABDOMINAL WITH TRANSVAGINAL Interpreted By: Jeremy Brower, STUDY: US PELVIS TRANSABDOMINAL WITH TRANSVAGINAL; 08/21/2024 8:38 am INDICATION: Signs/Symptoms:FERTILITY. ,Z31.83 Encounter for assisted reproductive fertility procedure cycle COMPARISON: 08/14/2024 ACCESSION NUMBER(S): [id number] ORDERING CLINICIAN: LEVON BRAXTON TECHNIQUE: Multiple multiplanar [...] Jeremy Brower 08/22/2024 10:52 AM Dictation workstation: [id number] [facility] Choriogonadotropin.beta subu niton 08-14-2024 HCG.beta subunit Qn m[IU]/mL Normal <5 [facility] Comment on above: Order Comment: Total HCG measurement is performed using the Tutu Tavernier Access Immunoassay which detects intact HCG and free beta HCG subunit. This test is not indicated for use as a tumor marker. HCG testing is performed using a different test methodology at [facility] than other [facility]. Direct result comparison should only be made within the same method. Performed By: #### 2 1198-7 #### SHAUNA ROBISON ([id number]) [facility] ([facility]) [address] [place] [address] Estradiolon 08-14-2024 E2 [Mass/Vol] 42 pg/mL [facility] Comment on above: Order Comment: Total HCG measurement is performed using the Tutu Tavernier Access Immunoassay which detects intact HCG and free beta HCG subunit. This test is not indicated for use as a tumor marker. HCG testing is performed using a different test methodology at [facility] than other [facility]. Direct result comparison should only be made within the same method. Performed By: #### 2 1198-7 #### SHAUNA ROBISON ([id number]) [facility] ([facility]) [address] [place] [address]014 Follitropin and Lutropin rhoades el Qnon 08-14-2024 Follitropin Qn 6.4 IU/L [facility] Comment on above: Order Comment: Total HCG measurement is performed using the Tutu Nestor Access Immunoassay which detects intact HCG and free beta HCG subunit. This test is not indicated for use as a tumor marker. HCG testing is performed using a different test methodology at [facility] than other [facility]. Direct result comparison should only be made within the same method. Result Comment: [facility] Ref Values Follicular 2.0-12.0 IU/L Mid-Cycle 12.0-25.0 IU/L Luteal Phase 2.0-12.0 IU/L Menopause 30.0-150.0 IU/L Pre-puberty 50% Adult IU/L Adult Male 2.0-10.0 IU/L Infants 0.0-1.0 IU/L Performed By: #### 2 1198-7 #### SHAUNA ROBISON ([id number]) [facility] ([facility]) [address] [place] [address] 77452 Lutropin Qn 5.0 IU/L [facility] Comment on above: Order Comment: Total HCG measurement is performed using the Tutu Tavernier Access Immunoassay which detects intact HCG and free beta HCG subunit. This test is not indicated for use as a tumor marker. HCG testing is performed using a different test methodology at [facility] than other [facility]. Direct result comparison should only be made within the same method. Result Comment: LH R eference Values Follicular Phase 1.9-12.5 IU/L Mid-Cycle 8.7-76.3 IU/L Luteal Phase 0.5-16.9 IU/L Post Menopause 5.0-55.2 IU/L Children 0- 6.0 IU/L Adult Male 18-70 years 1.5- 9.3 IU/L Adult Male >70 years 3.1-34.6 IU/L Performed By: #### 2 1198-7 #### SHAUNA ROBISON ([id number]) [facility] ([facility]) [address] [place] [address] 66866 Progesteroneon 08-14-2024 Progesterone [Mass/Vol] 0.5 ng/mL Normal [facility] Comment on above: Order Comment: Total HCG measurement is performed using the Tutu Sionex Access Immunoassay which detects intact HCG and free beta HCG subunit. This test is not indicated for use as a tumor marker. HCG testing is performed using a different test methodology at [facility] than other [facility]. Direct result comparison should only be made within the same method. Result Comment: Ref Values Male <0.3- 1.2 Follicular Phase <0.3- 1.4 Luteal Phase 3.3-25.6 Mid-Luteal Phase 4.4-28.0 Postmenopausal <0.3- 0.7 Females: 1st Trimester 11.2- 90.0 2nd Trimester 25.6- 89.4 3RD Trimester 48.4-422.5 Patients receiving DHEA-S supplements may show false elevation of progesterone for results near 1.0 ng/mL. Contact laboratory at [phone] if alternative testing is needed. Performed By: #### 2 1198-7 #### SHAUNA ROBISON ([id number]) [facility] ([facility]) [address] [place] [address] 86276 Thyrotropinon 08-14-2024 TSH Qn 1.86 m[IU]/L Normal 0.44-3.98 [facility] Comment on above: Order Comment: Total HCG measurement is performed using the Tutu Sionex Access Immunoassay which detects intact HCG and free beta HCG subunit. This test is not indicated for use as a tumor marker. HCG testing is performed using a different test methodology at [facility] than other [facility]. Direct result comparison should only be made within the same method. Performed By: #### 2 1198-7 #### VILLATORO ENRIQUETA ([id number]) [facility] ([facility]) [address] [place] [address] US PELVIS TRANSABDOMINAL WIT H TRANSVAGINALon 08-14-2024 US PELVIS TRANSABDOMINAL WITH TRANSVAGINAL Interpreted By: Ravi Triplett, STUDY: US PELVIS TRANSABDOMINAL WITH TRANSVAGINAL; ; 08/14/2024 8:54 am INDICATION: Signs/Symptoms:FERTILITY. COMPARISON: 06/24/2024 ACCESSION NUMBER(S): [id number] ORDERING CLINICIAN: LEVON BRAXTON TECHNIQUE: Multiple transabdominal [...] Ravi Triplett 08/15/2024 2:03 PM Dictation workstation: [id number] Normal [facility] Internal Medicine Office Vis iton 07-16-2024 Internal Medicine Office Visit Normal [facility] Estradiolon 06-24-2024 E2 [Mass/Vol] 453 pg/mL Normal [facility] Comment on above: Order Comment: Total HCG measurement is performed using the Tutu Tavernier Access Immunoassay which detects intact HCG and free beta HCG subunit. This test is not indicated for use as a tumor marker. HCG testing is performed using a different test methodology at [facility] than other [facility]. Direct result comparison should only be made within the same method. Performed By: #### 2 1198-7 #### SHAUNA ROBISON ([id number]) [facility] ([facility]) [address] [place] [address]605 Lutropinon 06-24-2024 Lutropin Qn 3.1 IU/L Normal [facility] Comment on above: Result Comment: LH R eference Values Follicular Phase 1.9-12.5 IU/L Mid-Cycle 8.7-76.3 IU/L Luteal Phase 0.5-16.9 IU/L Post Menopause 5.0-55.2 IU/L Children 0- 6.0 IU/L Adult Male 18-70 years 1.5- 9.3 IU/L Adult Male >70 years 3.1-34.6 IU/L Performed By: #### 2 1198-7 #### SHAUNA ROBISON ([id number]) [facility] ([facility]) [address] [place], [place] [address] Progesteroneon 06-24-2024 Progesterone [Mass/Vol] 0.6 ng/mL [facility] Comment on above: Result Comment: Ref Values Male <0.3- 1.2 Follicular Phase <0.3- 1.4 Luteal Phase 3.3-25.6 Mid-Luteal Phase 4.4-28.0 Postmenopausal <0.3- 0.7 Females: 1st Trimester 11.2- 90.0 2nd Trimester 25.6- 89.4 3RD Trimester 48.4-422.5 Patients receiving DHEA-S supplements may show false elevation of progesterone for results near 1.0 ng/mL. Contact laboratory at [phone] if alternative testing is needed. Performed By: #### 2 1198-7 #### SHAUNA ROBISON ([id number]) [facility] ([facility]) [address] [place] [address] 49372 GERRY US PELVIS LIMITED FOLLIC LES-FOLLICLE STUDIES PERFORMEDon 06-24-2024 GERRY US PELVIS LIMITED FOLLICLES-FOLLICLE STUDIES PERFORMED Interpreted By: Xiang Bowden, STUDY: US PELVIS TRANSABDOMINAL WITH TRANSVAGINAL; 06/24/2024 9:01 am INDICATION: Signs/Symptoms:FERTILITY. ,Z31.83 Encounter for assisted reproductive fertility procedure cycle COMPARISON: None. ACCESSION NUMBER(S): [id number] ORDERING CLINICIAN: LEVON BRAXTON TECHNIQUE: Multiple multiplanar [...] Xiang Bowden 06/25/2024 6:46 AM Dictation workstation: [id number] [facility] US PELVIS TRANSABDOMINAL WIT H TRANSVAGINALon 06-24-2024 US PELVIS TRANSABDOMINAL WITH TRANSVAGINAL Interpreted By: Xiang Bowden, STUDY: US PELVIS TRANSABDOMINAL WITH TRANSVAGINAL; 06/24/2024 9:01 am INDICATION: Signs/Symptoms:FERTILITY. ,Z31.83 Encounter for assisted reproductive fertility procedure cycle COMPARISON: None. ACCESSION NUMBER(S): [id number] ORDERING CLINICIAN: LEVON BRAXTON TECHNIQUE: Multiple multiplanar [...] Xiang Bowden 06/25/2024 6:46 AM Dictation workstation: [id number] [facility] Estradiolon 06-22-2024 E2 [Mass/Vol] 124 pg/mL [facility] Comment on above: Order Comment: REF V ALUES FOLLICULAR PHASE 20-144 MID CYCLE 64-357 LUTEAL PHASE 56-214 POSTMENOPAUSE < 32 PREPUBERTY < 20 FEMALE 10-18Y 8-110 MALE 10-18Y < 20 ADULT MALE < 40 Performed By: #### 2 243-4 #### DWAYNE Nair ([id number]) [facility] [address] [place] [address] Lutropinon 06-22-2024 Lutropin Qn 1.9 IU/L [facility] Comment on above: Result Comment: LH R eference Values Follicular Phase 1.9-12.5 IU/L Mid-Cycle 8.7-76.3 IU/L Luteal Phase 0.5-16.9 IU/L Post Menopause 5.0-55.2 IU/L Children 0- 6.0 IU/L Adult Male 18-70 years 1.5- 9.3 IU/L Adult Male >70 years 3.1-34.6 IU/L Performed By: #### 1 0501-5 #### DWAYNE Nair ([id number]) [facility] [address] [place], [place] [address] Progesteroneon 06-22-2024 Progesterone [Mass/Vol] 0.4 ng/mL [facility] Comment on above: Result Comment: Ref Values Male <0.3- 1.2 Follicular Phase <0.3- 1.4 Luteal Phase 3.3-25.6 Mid-Luteal Phase 4.4-28.0 Postmenopausal <0.3- 0.7 Females: 1st Trimester 11.2- 90.0 2nd Trimester 25.6- 89.4 3RD Trimester 48.4-422.5 Patients receiving DHEA-S supplements may show false elevation of progesterone for results near 1.0 ng/mL. Contact laboratory at [phone] if alternative testing is needed. Performed By: #### 2 1198-7 #### VILLATORO ENRIQUETA ([id number]) [facility] ([facility]) [address] [place] [id number] GERRY US PELVIS LIMITED FOLLIC LES-FOLLICLE STUDIES PERFORMEDon 06-22-2024 GERRY US PELVIS LIMITED FOLLICLES-FOLLICLE STUDIES PERFORMED Interpreted By: Xiang Bowden, STUDY: US PELVIS TRANSABDOMINAL WITH TRANSVAGINAL; 06/22/2024 9:02 am INDICATION: Signs/Symptoms:FERTILITY. ,Z31.83 Encounter for assisted reproductive fertility procedure cycle COMPARISON: None. ACCESSION NUMBER(S): [id number] ORDERING CLINICIAN: LEOVN BRAXTON TECHNIQUE: Multiple multiplanar static amos scale, [...] Xiang Bowden 06/23/2024 5:37 AM Dictation workstation: [id number] [facility] US PELVIS TRANSABDOMINAL WIT H TRANSVAGINALon 06-22-2024 US PELVIS TRANSABDOMINAL WITH TRANSVAGINAL Interpreted By: Xiang Bowden, STUDY: US PELVIS TRANSABDOMINAL WITH TRANSVAGINAL; 06/22/2024 9:02 am INDICATION: Signs/Symptoms:FERTILITY. ,Z31.83 Encounter for assisted reproductive fertility procedure cycle COMPARISON: None. ACCESSION NUMBER(S): [id number] ORDERING CLINICIAN: LEVON BRAXTON TECHNIQUE: Multiple multiplanar [...] Xiang Bowden 06/23/2024 5:37 AM Dictation workstation: [id number] [facility] Estradiolon 06-19-2024 E2 [Mass/Vol] 49 pg/mL [facility] Comment on above: Order Comment: REF V ALUES FOLLICULAR PHASE 20-144 MID CYCLE 64-357 LUTEAL PHASE 56-214 POSTMENOPAUSE < 32 PREPUBERTY < 20 FEMALE 10-18Y 8-110 MALE 10-18Y < 20 ADULT MALE < 40 Performed By: #### 2 243-4 #### DWAYNE Nair ([id number]) [facility] [address] [place] [address] Lutropinon 06-19-2024 Lutropin Qn 7.0 IU/L Normal [facility] Comment on above: Result Comment: LH R eference Values Follicular Phase 1.9-12.5 IU/L Mid-Cycle 8.7-76.3 IU/L Luteal Phase 0.5-16.9 IU/L Post Menopause 5.0-55.2 IU/L Children 0- 6.0 IU/L Adult Male 18-70 years 1.5- 9.3 IU/L Adult Male >70 years 3.1-34.6 IU/L Performed By: #### 1 0501-5 #### DWAYNE Nair ([id number]) [facility] [address] [place] [address]12 Progesteroneon 06-19-2024 Progesterone [Mass/Vol] 0.5 ng/mL [facility] Comment on above: Result Comment: Ref Values Male <0.3- 1.2 Follicular Phase <0.3- 1.4 Luteal Phase 3.3-25.6 Mid-Luteal Phase 4.4-28.0 Postmenopausal <0.3- 0.7 Females: 1st Trimester 11.2- 90.0 2nd Trimester 25.6- 89.4 3RD Trimester 48.4-422.5 Patients receiving DHEA-S supplements may show false elevation of progesterone for results near 1.0 ng/mL. Contact laboratory at [phone] if alternative testing is needed. Performed By: #### 2 839-9 #### DWAYNE Nair ([id number]) [facility] [address] [place] [address]99 GERRY US PELVIS LIMITED FOLLIC LES-FOLLICLE STUDIES PERFORMEDon 06-19-2024 GERRY US PELVIS LIMITED FOLLICLES-FOLLICLE STUDIES PERFORMED Interpreted By: Lawson Wynn, STUDY: US PELVIS TRANSABDOMINAL WITH TRANSVAGINAL; 06/19/2024 9:11 am INDICATION: Signs/Symptoms:FERTILITY. ,Z31.83 Encounter for assisted reproductive fertility procedure cycle COMPARISON: Prior exam from 06/15/2024.. ACCESSION NUMBER(S): [id number] ORDERING CLINICIAN: LEVON BRAXTON TECHNIQUE: Multiple multiplanar [...] follicles as described. MACRO: None Signed by: Lawsno Wynn 06/20/2024 4:53 PM Dictation workstation: [id number] [facility] US PELVIS TRANSABDOMINAL WIT H TRANSVAGINALon 06-19-2024 US PELVIS TRANSABDOMINAL WITH TRANSVAGINAL Interpreted By: Lawson Wynn, STUDY: US PELVIS TRANSABDOMINAL WITH TRANSVAGINAL; 06/19/2024 9:11 am INDICATION: Signs/Symptoms:FERTILITY. ,Z31.83 Encounter for assisted reproductive fertility procedure cycle COMPARISON: Prior exam from 06/15/2024.. ACCESSION NUMBER(S): [id number] ORDERING CLINICIAN: LEVON BRAXTON TECHNIQUE: Multiple multiplanar [...] Lawson Wynn 06/20/2024 4:53 PM Dictation workstation: [id number] [facility] Choriogonadotropin.beta subu niton 06-15-2024 HCG.beta subunit Qn m[IU]/mL Normal <5 [facility] Comment on above: Order Comment: Total HCG measurement is performed using the Tutu Nestor Access Immunoassay which detects intact HCG and free beta HCG subunit. This test is not indicated for use as a tumor marker. HCG testing is performed using a different test methodology at [facility] than other [facility]. Direct result comparison should only be made within the same method. Performed By: #### 2 1198-7 #### SHAUNA ROBISON ([id number]) [facility] ([facility]) [address] [place] [address] Estradiolon 06-15-2024 E2 [Mass/Vol] 47 pg/mL [facility] Comment on above: Order Comment: REF V ALUES FOLLICULAR PHASE 20-144 MID CYCLE 64-357 LUTEAL PHASE 56-214 POSTMENOPAUSE < 32 PREPUBERTY < 20 FEMALE 10-18Y 8-110 MALE 10-18Y < 20 ADULT MALE < 40 Performed By: #### 2 243-4 #### DWAYNE Nair ([id number]) [facility] [id number] [place] [address]43 Follitropin and Lutropin rhoades el Qnon 06-15-2024 Follitropin Qn 5.0 IU/L [facility] Comment on above: Result Comment: FSH Ref Values Follicular 2.0-12.0 IU/L Mid-Cycle 12.0-25.0 IU/L Luteal Phase 2.0-12.0 IU/L Menopause 30.0-150.0 IU/L Pre-puberty 50% Adult IU/L Adult Male 2.0-10.0 IU/L Infants 0.0-1.0 IU/L Performed By: #### 3 4549-6 #### DWAYNE Nair ([id number]) [facility] ([facility]) [id number] [place] [address] Lutropin Qn 2.9 IU/L [facility] Comment on above: Result Comment: LH R eference Values Follicular Phase 1.9-12.5 IU/L Mid-Cycle 8.7-76.3 IU/L Luteal Phase 0.5-16.9 IU/L Post Menopause 5.0-55.2 IU/L Children 0- 6.0 IU/L Adult Male 18-70 years 1.5- 9.3 IU/L Adult Male >70 years 3.1-34.6 IU/L Performed By: #### 3 4549-6 #### DWAYNE Nair ([id number]) [facility] ([facility]) [address] [place] [address] Progesteroneon 06-15-2024 Progesterone [Mass/Vol] 0.5 ng/mL [facility] Comment on above: Result Comment: Ref Values Male <0.3- 1.2 Follicular Phase <0.3- 1.4 Luteal Phase 3.3-25.6 Mid-Luteal Phase 4.4-28.0 Postmenopausal <0.3- 0.7 Females: 1st Trimester 11.2- 90.0 2nd Trimester 25.6- 89.4 3RD Trimester 48.4-422.5 Patients receiving DHEA-S supplements may show false elevation of progesterone for results near 1.0 ng/mL. Contact laboratory at [phone] if alternative testing is needed. Performed By: #### 2 839-9 #### DWAYNE Nair ([id number]) [facility] ([facility]) [address] [place] [address] Thyrotropinon 06-15-2024 TSH Qn 2.68 m[IU]/L Normal 0.44-3.98 [facility] Comment on above: Order Comment: TSH t esting is performed using different testing methodology at [facility] than at other [facility]. Direct result comparisons should only be made within the same method. Performed By: #### 3 016-3 #### VILLATORO ENRIQUETA ([id number]) [facility] ([facility]) [address] [place] [address] US PELVIS TRANSABDOMINAL WIT H TRANSVAGINALon 06-15-2024 US PELVIS TRANSABDOMINAL WITH TRANSVAGINAL Interpreted By: Dyllan De Jesus, STUDY: US PELVIS TRANSABDOMINAL WITH TRANSVAGINAL; ; 06/15/2024 8:31 am INDICATION: Signs/Symptoms:Fertility. COMPARISON: None. ACCESSION NUMBER(S): [id number] ORDERING CLINICIAN: LEVON BRAXTON TECHNIQUE: Multiple multiplanar [...] De Jesus 06/15/2024 12:12 PM Dictation workstation: [id number] [facility] US Pelvis transvaginalon 1. Single follicle w ithin the right ovary, as above. 2. Tiny hypoechoic focus in the endometrium, of uncertain etiology. MACRO: None Signed by: Dyllan De Jesus 06/15/2024 12:12 PM Dictation workstation: [id number] MMODAL Interpreted By: Dyllan Ferrara, STUDY: US PELVIS TRANSABDOMINAL WITH TRANSVAGINAL; ; 06/15/2024 8:31 am INDICATION: Signs/Symptoms:Fertility. COMPARISON: None. ACCESSION NUMBER(S): [id number] ORDERING CLINICIAN: LEVON BRAXTON TECHNIQUE: Multiple multiplanar [...] DE SAC: No free fluid is identified. MMODAL Dyllan De Jesus MD - 06/15/2024 Interpreted By: Dyllan De Jesus, STUDY: US PELVIS TRANSABDOMINAL WITH TRANSVAGINAL; ; 06/15/2024 8:31 am INDICATION: Signs/Symptoms:Fertility. COMPARISON: None. ACCESSION NUMBER(S): [id number] ORDERING CLINICIAN: LEVON BRAXTON TECHNIQUE: Multiple multiplanar [...] De Jesus 06/15/2024 12:12 PM Dictation workstation: [id number] [facility] Work Phone: Radiology Study observation (narrative) [facility] Work Phone: US Pelvis transvaginalOrdere d By: Dyllan De Jesus on 06-15-2024 [facility] Work Phone: Antimullerian Hormone, Serum on 06-02-2024 AMH, SERUM 3.66 ng/mL Normal . [facility] Comment on above: Result Comment: For assays employing antibodies, the possibility exists forinterference by heterophile antibodies in the samples.11.Adele Nair. Interferences in Immunoassays - still a threat. Clin. Chem. 2000; 46: 4523-1767.This test was developed and its performance characteristicsdetermined by [employer]. It has not been cleared or approvedby the Food and Drug Administration.Reference Range:Females 31 - 35y: 0.66 - 8.75Median 3.00AMH concentrations of >= 1.06 ng/mL is correlated with abetter response to ovarian stimulation, produced moreretrievable oocytes and higher odds of live accordingto Thanh et al. Fertility and Sterility. 2010:94:3825-3869. The current AMH test method correlates withthe study method with a slope of 0.94.Females at risk of ovarian hyperstimulation syndrome orpolycystic ovarian syndrome (PCOS) may exhibit elevatedserum AMH concentrations. AMH levels from PCOS patientsmay be 2 to 5 fold higher than age-appropriate referenceinterval values.Granulosa cell tumors of the ovary may secrete AMH alongwith other tumor markers. Elevated AMH is not specific formalignancy, and the assay should not be used exclusively todiagnose or exclude an AMH-secreting ovarian tumor. Performed By: #### L 509.4005, L3300.1750, L3100.5140, L509.3000, L3890.6100, L100.0100, L801.2600, L501.9520, L3100.5125, L506.1000, L3400.0000, L500.4050, B882-1, L509.8000, L3100.5400, L501.9985, L3890.6005, L803.3000, L3890.6300, L3100.5170 ####[facility] [address] [place], [place], [id number] PROLACTIN 4465on 06-02-2024 PROLACTIN 7.8 ng/mL Normal 4.8-33.4 [facility] Comment on above: Performed By: #### L 509.4005, L3300.1750, L3100.5140, L509.3000, L3890.6100, L100.0100, L801.2600, L501.9520, L3100.5125, L506.1000, L3400.0000, L500.4050, B882-1, L509.8000, L3100.5400, L501.9985, L3890.6005, L803.3000, L3890.6300, L3100.5170 ####[facility] [address] [place], [place], [id number] V-Zoster IgG (Immunity)on V ZOSTER IgG 1347 index Normal Immune >165 [facility] Comment on above: Result Comment: Nega tive <135 Equivocal 135 - 165 Positive >165A positive result generally indicates exposure to thepathogen or administration of specific immunoglobulins,but it is not indication of active infection or stageof disease.Performed at: [facility] [address] [place], [place] [id number] Director: Kolton Workman MD, Phone: [phone] at: [facility] [id number] [place], [place] [id number] Director: Huan Kuhn PhD, Phone: [phone] Performed By: #### L 509.4005, L3300.1750, L3100.5140, L509.3000, L3890.6100, L100.0100, L801.2600, L501.9520, L3100.5125, L506.1000, L3400.0000, L500.4050, B882-1, L509.8000, L3100.5400, L501.9985, L3890.6005, L803.3000, L3890.6300, L3100.5170 ####[facility] [address] [place], [place], [id number] HCG BETA-SUBUNIT QUANT.on HCG B-SUBUNIT < 1 Normal . [facility] Comment on above: Order Comment: N Result Comment: Fema le (Non-) 0 - 5 (Postmenopausal) 0 - 8 Female () Weeks of Gestation 3 6 - 71 4 10 - 750 5 187 - 6192 6 105 - 64377 7 4864 -663998 8 03658 -967744 9 61206 -558834 10 18875 -173705 12 21958 -834853 14 58336 - 21008 15 47542 - 88468 16 6258 - 10984 17 4657 - 08964 18 2161 - 84510Roche ECLIA methodology Performed By: #### L 509.4005, L3300.1750, L3100.5140, L509.3000, L3890.6100, L100.0100, L801.2600, L501.9520, L3100.5125, L506.1000, L3400.0000, L500.4050, B882-1, L509.8000, L3100.5400, L501.9985, L3890.6005, L803.3000, L3890.6300, L3100.5170 ####[facility] [address] [place], [address] PROGESTERONE 4317on 05-28-20 PROGESTERONE 0.2 ng/mL Normal . [facility] Comment on above: Order Comment: N Result Comment: Foll icular phase 0.1 - 0.9 Luteal phase 1.8 - 23.9 Ovulation phase 0.1 - 12.0 First trimester 11.0 - 44.3 Second trimester 25.4 - 83.3 Third trimester 58.7 - 214.0 Postmenopausal 0.0 - 0.1Performed at: [address] [id number] Director: Huan Kuhn PhD, Phone: [phone] Performed By: #### L 509.4005, L3300.1750, L3100.5140, L509.3000, L3890.6100, L100.0100, L801.2600, L501.9520, L3100.5125, L506.1000, L3400.0000, L500.4050, B882-1, L509.8000, L3100.5400, L501.9985, L3890.6005, L803.3000, L3890.6300, L3100.5170 ####[facility] [address] [place], [place], [address] [id number] 05-27-2024 ABO and Rh group Nom (Bld) Blood group B Rh(D) negative Normal [facility] Comment on above: Performed By: #### L 509.4005, L3300.1750, L3100.5140, L509.3000, L3890.6100, L100.0100, L801.2600, L501.9520, L3100.5125, L506.1000, L3400.0000, L500.4050, B882-1, L509.8000, L3100.5400, L501.9985, L3890.6005, L803.3000, L3890.6300, L3100.5170 ####[facility] [address] [place], [place], [phone] CBC W/Diff, Automatedon 05-01 Absolute Lymph 2.52 X10 3/uL Normal 0.83-4.51 [facility] Comment on above: Performed By: #### L 509.4005, L3300.1750, L3100.5140, L509.3000, L3890.6100, L100.0100, L801.2600, L501.9520, L3100.5125, L506.1000, L3400.0000, L500.4050, B882-1, L509.8000, L3100.5400, L501.9985, L3890.6005, L803.3000, L3890.6300, L3100.5170 ####[facility] [address] [place], [place], [address] Absolute Neut 6.0 X10 3/uL Normal 2.0-7.7 [facility] Comment on above: Performed By: #### L 509.4005, L3300.1750, L3100.5140, L509.3000, L3890.6100, L100.0100, L801.2600, L501.9520, L3100.5125, L506.1000, L3400.0000, L500.4050, B882-1, L509.8000, L3100.5400, L501.9985, L3890.6005, L803.3000, L3890.6300, L3100.5170 ####[facility] [address] [facility] [place], [address](321) Basophils/100 WBC (Bld) 0.7 % Normal 0-1 [facility] Comment on above: Performed By: #### L 509.4005, L3300.1750, L3100.5140, L509.3000, L3890.6100, L100.0100, L801.2600, L501.9520, L3100.5125, L506.1000, L3400.0000, L500.4050, B882-1, L509.8000, L3100.5400, L501.9985, L3890.6005, L803.3000, L3890.6300, L3100.5170 ####[facility] [address] [place], [address](708) Eosinophils/100 WBC (Bld) 2.2 % Normal 0-5 [facility] Comment on above: Performed By: #### L 509.4005, L3300.1750, L3100.5140, L509.3000, L3890.6100, L100.0100, L801.2600, L501.9520, L3100.5125, L506.1000, L3400.0000, L500.4050, B882-1, L509.8000, L3100.5400, L501.9985, L3890.6005, L803.3000, L3890.6300, L3100.5170 ####[facility] [address] [place], [address] Erythrocyte distribution width (RBC) [Ratio] 12.6 % Normal 11.6-14.6 [facility] Comment on above: Performed By: #### L 509.4005, L3300.1750, L3100.5140, L509.3000, L3890.6100, L100.0100, L801.2600, L501.9520, L3100.5125, L506.1000, L3400.0000, L500.4050, B882-1, L509.8000, L3100.5400, L501.9985, L3890.6005, L803.3000, L3890.6300, L3100.5170 ####[facility] [address] [place], [address] Hematocrit (Bld) [Volume fraction] 45.4 % Normal 37-47 [facility] Comment on above: Performed By: #### L 509.4005, L3300.1750, L3100.5140, L509.3000, L3890.6100, L100.0100, L801.2600, L501.9520, L3100.5125, L506.1000, L3400.0000, L500.4050, B882-1, L509.8000, L3100.5400, L501.9985, L3890.6005, L803.3000, L3890.6300, L3100.5170 ####[facility] [address] [place], [address] Hemoglobin (Bld) [Mass/Vol] 14.7 g/dL Normal 12.0-15.0 [facility] Comment on above: Performed By: #### L 509.4005, L3300.1750, L3100.5140, L509.3000, L3890.6100, L100.0100, L801.2600, L501.9520, L3100.5125, L506.1000, L3400.0000, L500.4050, B882-1, L509.8000, L3100.5400, L501.9985, L3890.6005, L803.3000, L3890.6300, L3100.5170 ####[facility] [address] [place], [address] IG% 0.900 Normal 0.0-0.9 [facility] Comment on above: Result Comment: IG% - Immature Granulocytes (promyelocytes, myelocytes andmetamyelocytes) > 1% indicates that a LEFT SHIFT is Present. Performed By: #### L 509.4005, L3300.1750, L3100.5140, L509.3000, L3890.6100, L100.0100, L801.2600, L501.9520, L3100.5125, L506.1000, L3400.0000, L500.4050, B882-1, L509.8000, L3100.5400, L501.9985, L3890.6005, L803.3000, L3890.6300, L3100.5170 ####[facility] [address] [facility] [place], [place], [address] Lymphocytes/100 WBC (Bld) 26.9 % Normal 19-41 [facility] Comment on above: Performed By: #### L 509.4005, L3300.1750, L3100.5140, L509.3000, L3890.6100, L100.0100, L801.2600, L501.9520, L3100.5125, L506.1000, L3400.0000, L500.4050, B882-1, L509.8000, L3100.5400, L501.9985, L3890.6005, L803.3000, L3890.6300, L3100.5170 ####[facility] [address] [place], [place], [id number] MCH (RBC) [Entitic mass] 27.8 pg Normal 27.0-32.0 [facility] Comment on above: Performed By: #### L 509.4005, L3300.1750, L3100.5140, L509.3000, L3890.6100, L100.0100, L801.2600, L501.9520, L3100.5125, L506.1000, L3400.0000, L500.4050, B882-1, L509.8000, L3100.5400, L501.9985, L3890.6005, L803.3000, L3890.6300, L3100.5170 ####[facility] [address] [facility] [place], [address] MCHC (RBC) [Mass/Vol] 32.4 g/dL Normal 32-36 [facility] Comment on above: Performed By: #### L 509.4005, L3300.1750, L3100.5140, L509.3000, L3890.6100, L100.0100, L801.2600, L501.9520, L3100.5125, L506.1000, L3400.0000, L500.4050, B882-1, L509.8000, L3100.5400, L501.9985, L3890.6005, L803.3000, L3890.6300, L3100.5170 ####[facility] [address] [place], [address] MCV (RBC) [Entitic vol] 85.8 fL Normal 81-99 [facility] Comment on above: Performed By: #### L 509.4005, L3300.1750, L3100.5140, L509.3000, L3890.6100, L100.0100, L801.2600, L501.9520, L3100.5125, L506.1000, L3400.0000, L500.4050, B882-1, L509.8000, L3100.5400, L501.9985, L3890.6005, L803.3000, L3890.6300, L3100.5170 ####[facility] [address] [facility] [place], [address] Monocytes/100 WBC (Bld) 5.4 % Normal 0-10 [facility] Comment on above: Performed By: #### L 509.4005, L3300.1750, L3100.5140, L509.3000, L3890.6100, L100.0100, L801.2600, L501.9520, L3100.5125, L506.1000, L3400.0000, L500.4050, B882-1, L509.8000, L3100.5400, L501.9985, L3890.6005, L803.3000, L3890.6300, L3100.5170 ####[facility] [address] [place], [address](154) Neutrophils/100 WBC (Bld) 63.9 % Normal 47-70 [facility] Comment on above: Performed By: #### L 509.4005, L3300.1750, L3100.5140, L509.3000, L3890.6100, L100.0100, L801.2600, L501.9520, L3100.5125, L506.1000, L3400.0000, L500.4050, B882-1, L509.8000, L3100.5400, L501.9985, L3890.6005, L803.3000, L3890.6300, L3100.5170 ####[facility] [address] [place], [address] Nucleated RBC (Bld) [#/Vol] 0 10*3/uL Normal 0-5 [facility] Comment on above: Performed By: #### L 509.4005, L3300.1750, L3100.5140, L509.3000, L3890.6100, L100.0100, L801.2600, L501.9520, L3100.5125, L506.1000, L3400.0000, L500.4050, B882-1, L509.8000, L3100.5400, L501.9985, L3890.6005, L803.3000, L3890.6300, L3100.5170 ####[facility] [address] [place], [address] Platelet mean volume (Bld) [Entitic vol] 8.7 fL Normal 6.2-12.0 [facility] Comment on above: Performed By: #### L 509.4005, L3300.1750, L3100.5140, L509.3000, L3890.6100, L100.0100, L801.2600, L501.9520, L3100.5125, L506.1000, L3400.0000, L500.4050, B882-1, L509.8000, L3100.5400, L501.9985, L3890.6005, L803.3000, L3890.6300, L3100.5170 ####[facility] [address] [facility] [place], [place], [address](738) Platelets (Bld) [#/Vol] 348 10*3/uL Normal 150-450 [facility] Comment on above: Performed By: #### L 509.4005, L3300.1750, L3100.5140, L509.3000, L3890.6100, L100.0100, L801.2600, L501.9520, L3100.5125, L506.1000, L3400.0000, L500.4050, B882-1, L509.8000, L3100.5400, L501.9985, L3890.6005, L803.3000, L3890.6300, L3100.5170 ####[facility] [address] [facility] [place], [place], [phone] RBC (Bld) [#/Vol] 5.29 10*6/uL Normal 4.2-5.4 [facility] Comment on above: Performed By: #### L 509.4005, L3300.1750, L3100.5140, L509.3000, L3890.6100, L100.0100, L801.2600, L501.9520, L3100.5125, L506.1000, L3400.0000, L500.4050, B882-1, L509.8000, L3100.5400, L501.9985, L3890.6005, L803.3000, L3890.6300, L3100.5170 ####[facility] [address] [place], [address] RDW SD 39.6 fl Normal 35.1-43.9 [facility] Comment on above: Performed By: #### L 509.4005, L3300.1750, L3100.5140, L509.3000, L3890.6100, L100.0100, L801.2600, L501.9520, L3100.5125, L506.1000, L3400.0000, L500.4050, B882-1, L509.8000, L3100.5400, L501.9985, L3890.6005, L803.3000, L3890.6300, L3100.5170 ####[facility] [address] [place], [address] WBC (Bld) [#/Vol] 9.4 10*3/uL Normal 4.4-11.0 [facility] Comment on above: Performed By: #### L 509.4005, L3300.1750, L3100.5140, L509.3000, L3890.6100, L100.0100, L801.2600, L501.9520, L3100.5125, L506.1000, L3400.0000, L500.4050, B882-1, L509.8000, L3100.5400, L501.9985, L3890.6005, L803.3000, L3890.6300, L3100.5170 ####[facility] [address] [place], [address] Comprehensive Metabolic Prof mion 05-27-2024 Albumin [Mass/Vol] 3.8 g/dL Normal 3.2-5.0 [facility] Comment on above: Performed By: #### L 509.4005, L3300.1750, L3100.5140, L509.3000, L3890.6100, L100.0100, L801.2600, L501.9520, L3100.5125, L506.1000, L3400.0000, L500.4050, B882-1, L509.8000, L3100.5400, L501.9985, L3890.6005, L803.3000, L3890.6300, L3100.5170 ####[facility] [address] [place], [place], [address] Albumin/Globulin [Mass ratio] 1.0 {ratio} Normal 0.9-2.4 [facility] Comment on above: Performed By: #### L 509.4005, L3300.1750, L3100.5140, L509.3000, L3890.6100, L100.0100, L801.2600, L501.9520, L3100.5125, L506.1000, L3400.0000, L500.4050, B882-1, L509.8000, L3100.5400, L501.9985, L3890.6005, L803.3000, L3890.6300, L3100.5170 ####[facility] [address] [place], [place], [address] ALK P 86 U/L Normal 45-117 [facility] Comment on above: Performed By: #### L 509.4005, L3300.1750, L3100.5140, L509.3000, L3890.6100, L100.0100, L801.2600, L501.9520, L3100.5125, L506.1000, L3400.0000, L500.4050, B882-1, L509.8000, L3100.5400, L501.9985, L3890.6005, L803.3000, L3890.6300, L3100.5170 ####[facility] [address] [place], [place], [address] ALT [Catalytic activity/Vol] 59 U/L High 13-56 [facility] Comment on above: Performed By: #### L 509.4005, L3300.1750, L3100.5140, L509.3000, L3890.6100, L100.0100, L801.2600, L501.9520, L3100.5125, L506.1000, L3400.0000, L500.4050, B882-1, L509.8000, L3100.5400, L501.9985, L3890.6005, L803.3000, L3890.6300, L3100.5170 ####[facility] [address] [place], [place], [address] AST [Catalytic activity/Vol] 40 U/L High 15-37 [facility] Comment on above: Performed By: #### L 509.4005, L3300.1750, L3100.5140, L509.3000, L3890.6100, L100.0100, L801.2600, L501.9520, L3100.5125, L506.1000, L3400.0000, L500.4050, B882-1, L509.8000, L3100.5400, L501.9985, L3890.6005, L803.3000, L3890.6300, L3100.5170 ####[facility] [address] [place], [place], [address] Bilirubin [Mass/Vol] 0.50 mg/dL Normal 0.20-1.00 [facility] Comment on above: Result Comment: For patients on eltrombopag therapy, use of Dimension [place] TBIL is not recommended. Performed By: #### L 509.4005, L3300.1750, L3100.5140, L509.3000, L3890.6100, L100.0100, L801.2600, L501.9520, L3100.5125, L506.1000, L3400.0000, L500.4050, B882-1, L509.8000, L3100.5400, L501.9985, L3890.6005, L803.3000, L3890.6300, L3100.5170 ####[facility] [address] [place], [place], [phone](316) BUN/CRE 11.7 RATIO Normal 10-20 [facility] Comment on above: Performed By: #### L 509.4005, L3300.1750, L3100.5140, L509.3000, L3890.6100, L100.0100, L801.2600, L501.9520, L3100.5125, L506.1000, L3400.0000, L500.4050, B882-1, L509.8000, L3100.5400, L501.9985, L3890.6005, L803.3000, L3890.6300, L3100.5170 ####[facility] [address] [place], [place], [phone](617) CA,Total 9.1 mg/dL Normal 8.5-10.1 [facility] Comment on above: Performed By: #### L 509.4005, L3300.1750, L3100.5140, L509.3000, L3890.6100, L100.0100, L801.2600, L501.9520, L3100.5125, L506.1000, L3400.0000, L500.4050, B882-1, L509.8000, L3100.5400, L501.9985, L3890.6005, L803.3000, L3890.6300, L3100.5170 ####[facility] [address] [place], [place], [phone]) Chloride [Moles/Vol] 107 mmol/L Normal 98-107 [facility] Comment on above: Performed By: #### L 509.4005, L3300.1750, L3100.5140, L509.3000, L3890.6100, L100.0100, L801.2600, L501.9520, L3100.5125, L506.1000, L3400.0000, L500.4050, B882-1, L509.8000, L3100.5400, L501.9985, L3890.6005, L803.3000, L3890.6300, L3100.5170 ####[facility] [address] [place], [place], [phone](116) CO2 [Moles/Vol] 24.0 mmol/L Normal 21.0-32.0 [facility] Comment on above: Performed By: #### L 509.4005, L3300.1750, L3100.5140, L509.3000, L3890.6100, L100.0100, L801.2600, L501.9520, L3100.5125, L506.1000, L3400.0000, L500.4050, B882-1, L509.8000, L3100.5400, L501.9985, L3890.6005, L803.3000, L3890.6300, L3100.5170 ####[facility] [address] [place], [place], [phone](602) Creatinine [Mass/Vol] 0.68 mg/dL Normal 0.55-1.02 [facility] Comment on above: Result Comment: The validity of the calculated GFR GFRAA in patients over70 years has not been determined. Clinical correlation isessential. Performed By: #### L 509.4005, L3300.1750, L3100.5140, L509.3000, L3890.6100, L100.0100, L801.2600, L501.9520, L3100.5125, L506.1000, L3400.0000, L500.4050, B882-1, L509.8000, L3100.5400, L501.9985, L3890.6005, L803.3000, L3890.6300, L3100.5170 ####[facility] [address] [place], [place], [phone](989) EST GFR - AA 126 mL/min Normal >60 [facility] Comment on above: Result Comment: Afri can Maltese GFR Calc Performed By: #### L 509.4005, L3300.1750, L3100.5140, L509.3000, L3890.6100, L100.0100, L801.2600, L501.9520, L3100.5125, L506.1000, L3400.0000, L500.4050, B882-1, L509.8000, L3100.5400, L501.9985, L3890.6005, L803.3000, L3890.6300, L3100.5170 ####[facility] [address] [facility] [place], [address] GAP 7 Normal 5-15 [facility] Comment on above: Performed By: #### L 509.4005, L3300.1750, L3100.5140, L509.3000, L3890.6100, L100.0100, L801.2600, L501.9520, L3100.5125, L506.1000, L3400.0000, L500.4050, B882-1, L509.8000, L3100.5400, L501.9985, L3890.6005, L803.3000, L3890.6300, L3100.5170 ####[facility] [address] [place], [place], [id number] GFR/1.73 sq M.predicted among non-blacks MDRD (S/P/Bld) [Vol rate/Area] 104 mL/min/{1.73_m2} Normal >60 [facility] Comment on above: Result Comment: Non- GFR Calc Performed By: #### L 509.4005, L3300.1750, L3100.5140, L509.3000, L3890.6100, L100.0100, L801.2600, L501.9520, L3100.5125, L506.1000, L3400.0000, L500.4050, B882-1, L509.8000, L3100.5400, L501.9985, L3890.6005, L803.3000, L3890.6300, L3100.5170 ####[facility] [address] [place], [place], [phone](186) Globulin (S) [Mass/Vol] 4.0 g/dL Normal 2.2-4.2 [facility] Comment on above: Performed By: #### L 509.4005, L3300.1750, L3100.5140, L509.3000, L3890.6100, L100.0100, L801.2600, L501.9520, L3100.5125, L506.1000, L3400.0000, L500.4050, B882-1, L509.8000, L3100.5400, L501.9985, L3890.6005, L803.3000, L3890.6300, L3100.5170 ####[facility] [address] [place], [place], [phone](905) Glucose [Mass/Vol] 98 mg/dL Normal 74-106 [facility] Comment on above: Performed By: #### L 509.4005, L3300.1750, L3100.5140, L509.3000, L3890.6100, L100.0100, L801.2600, L501.9520, L3100.5125, L506.1000, L3400.0000, L500.4050, B882-1, L509.8000, L3100.5400, L501.9985, L3890.6005, L803.3000, L3890.6300, L3100.5170 ####[facility] [address] [place], [place], [phone] Potassium [Moles/Vol] 3.9 mmol/L Normal 3.5-5.1 [facility] Comment on above: Performed By: #### L 509.4005, L3300.1750, L3100.5140, L509.3000, L3890.6100, L100.0100, L801.2600, L501.9520, L3100.5125, L506.1000, L3400.0000, L500.4050, B882-1, L509.8000, L3100.5400, L501.9985, L3890.6005, L803.3000, L3890.6300, L3100.5170 ####[facility] [address] [place], [address] Sodium [Moles/Vol] 138 mmol/L Normal 136-145 [facility] Comment on above: Performed By: #### L 509.4005, L3300.1750, L3100.5140, L509.3000, L3890.6100, L100.0100, L801.2600, L501.9520, L3100.5125, L506.1000, L3400.0000, L500.4050, B882-1, L509.8000, L3100.5400, L501.9985, L3890.6005, L803.3000, L3890.6300, L3100.5170 ####[facility] [address] [place], [address] T PROT 7.8 g/dL Normal 6.4-8.2 [facility] Comment on above: Performed By: #### L 509.4005, L3300.1750, L3100.5140, L509.3000, L3890.6100, L100.0100, L801.2600, L501.9520, L3100.5125, L506.1000, L3400.0000, L500.4050, B882-1, L509.8000, L3100.5400, L501.9985, L3890.6005, L803.3000, L3890.6300, L3100.5170 ####[facility] [address] [place], [place], [id number] Urea nitrogen [Mass/Vol] 8 mg/dL Normal 7-18 [facility] Comment on above: Performed By: #### L 509.4005, L3300.1750, L3100.5140, L509.3000, L3890.6100, L100.0100, L801.2600, L501.9520, L3100.5125, L506.1000, L3400.0000, L500.4050, B882-1, L509.8000, L3100.5400, L501.9985, L3890.6005, L803.3000, L3890.6300, L3100.5170 ####[facility] [address] [place], [place], [id number] Estradiolon 05-27-2024 ESTRADIOL 133.9 pg/mL Normal [facility] Comment on above: Result Comment: NORM AL REFERENCE RANGES FEMALE FOLLICULAR 21.4 - 164.8 pg/mL MID-CYCLE PEAK 49.9 - 367.2 pg/mL LUTEAL 40.2 - 259.0 pg/mL POST-MENOPAUSAL ON MHT <11.0 - 462.1 pg/mL NOT ON MHT <11.0 - 58.3 pg/mL MALE <11.0 - 52.5 pg/mLNOTE:[employer] HAS CONFIRMED THE DRUG FULVETRANT (FASLODEX) MAYCAUSE FALSELY ELEVATED ESTRADIOL RESULTS WHEN USING THISTEST METHOD. IF PATIENT IS TAKING FULVESTRANT AN ALTERNATIVEMETHOD SHOULD BE USED TO DETERMINE ESTRADIOL CONCENTRATION. Performed By: #### L 509.4005, L3300.1750, L3100.5140, L509.3000, L3890.6100, L100.0100, L801.2600, L501.9520, L3100.5125, L506.1000, L3400.0000, L500.4050, B882-1, L509.8000, L3100.5400, L501.9985, L3890.6005, L803.3000, L3890.6300, L3100.5170 ####[facility] [address] [place], [place], [phone] Follicle Stimulating Hormone on 05-27-2024 FSH 5.8 mIU/mL Normal [facility] Comment on above: Result Comment: NORM AL REFERENCE RANGES FEMALE FOLLICULAR 2.3 - 12.6 mIU/mL MID-CYCLE PEAK 5.2 - 17.5 mIU/mL LUTEAL 1.7 - 12.9 mIU/mL POST-MENOPAUSAL ON MHT 5.9 - 72.8 mIU/mL NOT ON MHT 12.7 - 132.2 mlU/mL MALE 0.7 - 10.8 mIU/mL Performed By: #### L 509.4005, L3300.1750, L3100.5140, L509.3000, L3890.6100, L100.0100, L801.2600, L501.9520, L3100.5125, L506.1000, L3400.0000, L500.4050, B882-1, L509.8000, L3100.5400, L501.9985, L3890.6005, L803.3000, L3890.6300, L3100.5170 ####[facility] [address] [place], [address] HIV - WCHon 05-27-2024 HIV Non-Reactive Normal Nonreactive [facility] Comment on above: Performed By: #### L 509.4005, L3300.1750, L3100.5140, L509.3000, L3890.6100, L100.0100, L801.2600, L501.9520, L3100.5125, L506.1000, L3400.0000, L500.4050, B882-1, L509.8000, L3100.5400, L501.9985, L3890.6005, L803.3000, L3890.6300, L3100.5170 ####[facility] [address] [facility] [place], [address] Hemoglobin A1con 05-27-2024 HbA1c (Bld) [Mass fraction] 5.4 % Normal 3.8-5.6 [facility] Comment on above: Result Comment: Norm al < 5.7 % Prediabetic 5.7 - 6.4 % Diabetic >or= 6.5 % Please note range changes. Performed By: #### L 509.4005, L3300.1750, L3100.5140, L509.3000, L3890.6100, L100.0100, L801.2600, L501.9520, L3100.5125, L506.1000, L3400.0000, L500.4050, B882-1, L509.8000, L3100.5400, L501.9985, L3890.6005, L803.3000, L3890.6300, L3100.5170 ####[facility] [address] [place], [place], [id number] Hepatitis B Surface Antigeno n 05-27-2024 HEP B Surf Ag Non-Reactive Normal Nonreactive [facility] Comment on above: Performed By: #### L 509.4005, L3300.1750, L3100.5140, L509.3000, L3890.6100, L100.0100, L801.2600, L501.9520, L3100.5125, L506.1000, L3400.0000, L500.4050, B882-1, L509.8000, L3100.5400, L501.9985, L3890.6005, L803.3000, L3890.6300, L3100.5170 ####[facility] [address] [facility] [place], [place], [address] Hepatitis C Antibodyon 05-27 Hepatitis C AB Non-Reactive Normal Nonreactive [facility] Comment on above: Result Comment: Non Reactive: < 0.8 Equivocal: >/= 0.8 to < 1.0 Reactive: >/= 1.0The CDC requires that a reactive/equivocal HCV antibodyresult be sent out for confirmation. HCV Quant by PCRtesting. Performed By: #### L 509.4005, L3300.1750, L3100.5140, L509.3000, L3890.6100, L100.0100, L801.2600, L501.9520, L3100.5125, L506.1000, L3400.0000, L500.4050, B882-1, L509.8000, L3100.5400, L501.9985, L3890.6005, L803.3000, L3890.6300, L3100.5170 ####[facility] [address] [place], [place], [id number] L509.8000on 05-27-2024 Syphilis Abs Non-Reactive Normal [facility] Comment on above: Performed By: #### L 509.4005, L3300.1750, L3100.5140, L509.3000, L3890.6100, L100.0100, L801.2600, L501.9520, L3100.5125, L506.1000, L3400.0000, L500.4050, B882-1, L509.8000, L3100.5400, L501.9985, L3890.6005, L803.3000, L3890.6300, L3100.5170 ####[facility] [address] [facility] [place], [place], [phone] Luteinizing Hormoneon 2023 LH 17.0 mIU/mL Normal [facility] Comment on above: Result Comment: NORM AL REFERENCE RANGES FEMALE FOLLICULAR 1.9 - 26.2 mIU/mL MID-CYCLE PEAK 22.8 - 76.1 mIU/mL LUTEAL 0.6 - 16.6 mIU/mL POST-MENOPAUSAL ON MHT 1.1 - 52.4 mIU/mL NOT ON MHT 8.6 - 61.8 mIU/mL MALE 1.2 - 10.6 mIU/mL Performed By: #### L 509.4005, L3300.1750, L3100.5140, L509.3000, L3890.6100, L100.0100, L801.2600, L501.9520, L3100.5125, L506.1000, L3400.0000, L500.4050, B882-1, L509.8000, L3100.5400, L501.9985, L3890.6005, L803.3000, L3890.6300, L3100.5170 ####[facility] [address] [place], [place], [id number] Rubella IgGon 05-27-2024 Rubella IgG Reactive Normal Nonreactive [facility] Comment on above: Result Comment: Anti body Results Interpretation of Immune Status Non Reactive Presumed Non-Immune Equivocal Equivocal Reactive Presumed Immune Performed By: #### L 509.4005, L3300.1750, L3100.5140, L509.3000, L3890.6100, L100.0100, L801.2600, L501.9520, L3100.5125, L506.1000, L3400.0000, L500.4050, B882-1, L509.8000, L3100.5400, L501.9985, L3890.6005, L803.3000, L3890.6300, L3100.5170 ####[facility] [address] [place], [place], [address] Testosterone, Serum Totalon 05-27-2024 Testosterone [Mass/Vol] 44.25 ng/dL Normal [facility] Comment on above: Result Comment: CENT RAL 90% REFERENCE RANGES MALE AGE <50 197.44 - 669.58 ng/dL MALE AGE > or = 50 187.72 - 684.19 ng/dL FEMALE AGE <50 8.38 - 35.01 ng/dL FEMALE AGE > or = 50 <7.00 - 35.92 ng/dL Effective as of 04/25/21 Performed By: #### L 509.4005, L3300.1750, L3100.5140, L509.3000, L3890.6100, L100.0100, L801.2600, L501.9520, L3100.5125, L506.1000, L3400.0000, L500.4050, B882-1, L509.8000, L3100.5400, L501.9985, L3890.6005, L803.3000, L3890.6300, L3100.5170 ####[facility] [address] [place], [place], [address] Thyroid Stim Hormone (TSH)on 05-27-2024 TSH 1.510 uIU/mL Normal 0.358-3.740 [facility] Comment on above: Performed By: #### L 509.4005, L3300.1750, L3100.5140, L509.3000, L3890.6100, L100.0100, L801.2600, L501.9520, L3100.5125, L506.1000, L3400.0000, L500.4050, B882-1, L509.8000, L3100.5400, L501.9985, L3890.6005, L803.3000, L3890.6300, L3100.5170 ####[facility] [address] [place] [employer] [place], [id number] Vitamin D,25 Hydroxyon 05-27 Vitamin D 25-OH 29.8 ng/mL Normal [facility] Comment on above: Result Comment: Tara min D 25(OH) Status Range Deficiency <20 ng/mL (50nmol/L) Insufficiency 20 - 30 ng/mL (50 - 75 nmol/L) Sufficiency 30 - 100 ng/mL (75 - 250 nmol/L) Toxicity >100 ng/mL (>250 nmol/L) Performed By: #### L 509.4005, L3300.1750, L3100.5140, L509.3000, L3890.6100, L100.0100, L801.2600, L501.9520, L3100.5125, L506.1000, L3400.0000, L500.4050, B882-1, L509.8000, L3100.5400, L501.9985, L3890.6005, L803.3000, L3890.6300, L3100.5170 ####[facility] [address] [place], [id number] CNOVon 01-12-2024 CNOV Office Visit (UCWSTR ) -- BARBY CABALLERO ([id number]) 1990 F Date Time Provider Department 01/12/24 10:30 AM GINA SAHU [facility] During your visit today, we recorded the following information about you: Temperature Pulse Respiration Blood pressure 97.9 degrees 134/minute 20/minute 118/78 Weight 120.3 kg Gina Sahu, [facility]ARDO[facility] 01/12/2024 11:22 AM Signed CC: Patient presents [...] Patient agreeable to treatment plan. Gina Sahu APRN.REHAB SPECIALIST Allergies As of Date: 01/12/2024 (No Active Allergies) Date Reviewed: 02/20/2012 Reviewed by: Van Yash Ma, Kendra - Fully Assessed Reason for Visit: Cough [...] content not included)... Normal [facility] TSH W/FT4 REFLEXon TSH 1.264 uIU/mL Normal 0.550-4.780 [facility] Comment on above: Performed By: #### T SHQR #### [facility] (DEFAULT) [address] [address] PROGESTERONEon 04-03-2023 Progesterone 15.64 ng/mL Normal [facility] Comment on above: Result Comment: This test is not recommended for patients receiving DHEA due to cross reactivity of DHEA S in the progesterone assay. Reference Range: Males: 0.28-1.22 ng/mL Females: Follicular phase 0-1.40 ng/mL Luteal phase 3.34-25.56 ng/mL Midluteal phase 4.44-28.03 ng/mL Postmenopausal 0-0.73 ng/mL Performed By: #### P DIANDRA #### [facility] (DEFAULT) [address] [place] [address] MAMMO DIAGNOSTIC WITH ADRIANA B ILATERALon 01-09-2023 MAMMO DIAGNOSTIC WITH ADRIANA BILATERAL EXAM: MAMMO DIAGNOSTIC WITH ADRIANA BILATERAL, US BREAST LIMITED UNILATERAL RIGHT, 01/09/2023 09:20 AM (accession [id number]), 01/09/2023 09:31 AM (accession [id number]) CLINICAL INDICATIONS: The patient reports right upper [...] left breast. BI-RADS: 1: Negative Recommendation: Clinical correlation/management. Recommendation Laterality: Right Normal [facility] MG Breast - bilateral Diagno sticon 01-09-2023 IMPRESSION: 1. No suspicious mammographic or sonographic findings in the right breast to explain symptoms. 2. No suspicious mammographic findings in the left breast. BI-RADS: 1: Negative Recommendation: Clinical correlation/management. Recommendation Laterality: Right OLOGY EXAM: MAMMO DIAGNOST IC WITH ADRIANA BILATERAL, US BREAST LIMITED UNILATERAL RIGHT, 01/09/2023 09:20 AM (accession [id number]), 01/09/2023 09:31 AM (accession [id number]) CLINICAL INDICATIONS: The patient reports right upper [...] LIMITED UNILATERAL RIGHT, 01/09/2023 09:20 AM (accession [id number]), 01/09/2023 09:31 AM (accession [id number]) CLINICAL INDICATIONS: The patient reports right upper [...] left breast. BI-RADS: 1: Negative Recommendation: Clinical correlation/management. Recommendation Laterality: Right [facility] Radiology Study observation (narrative) [facility] MG Breast - bilateral Diagno sticOrdered By: Nettie Trejo on 01-09-2023 [facility] US BREAST LIMITED UNILATERAL RIGHTon 01-09-2023 US BREAST LIMITED UNILATERAL RIGHT EXAM: MAMMO DIAGNOSTIC WITH ADRIANA BILATERAL, US BREAST LIMITED UNILATERAL RIGHT, 01/09/2023 09:20 AM (accession [id number]), 01/09/2023 09:31 AM (accession [id number]) CLINICAL INDICATIONS: The patient reports right upper [...] left breast. BI-RADS: 1: Negative Recommendation: Clinical correlation/management. Recommendation Laterality: Right Normal [facility] HEMOGLOBIN A2PPwnuhxf By: Sa fred Carbajal on 09-27-2022 Average glucose Estimated from glycated hemoglobin (Bld) [Mass/Vol] 105 mg/dL [facility] HbA1c (Bld) [Mass fraction] 5.3 % 4.7 - 5.6 % [facility] HEMOGLOBIN A1Con 09-27-2022 Glucose [Mass/Vol] 105 mg/dL Normal [facility] Comment on above: Performed By: #### A 1CB #### [facility] (DEFAULT) [address] [address] HbA1c (Bld) [Mass fraction] 5.3 % Normal 4.7-5.6 [facility] Comment on above: Performed By: #### A 1CB #### [facility] (DEFAULT) [address] [address] LIPID PANEL WITH REFLEX TO M DEE LDLon 09-27-2022 Calculated LDL Cholesterol 51 mg/dL Normal 0-99 [facility] Comment on above: Result Comment: [<10 0 mg/dL: Optimal] [100-129 mg/dL: Near Optimal] [130-159 mg/dL: Borderline High] [160-189 mg/dL: High] [>189 mg/dL: Very High] Performed By: #### L IPDR #### [facility] (DEFAULT) [address] [place] [address] Cholesterol [Mass/Vol] 122 mg/dL Normal <200 [facility] Comment on above: Result Comment: [<20 0 mg/dL: Desirable] [200-239 mg/dL: Borderline High] [>239 mg/dL: High] Performed By: #### L IPDR #### [facility] (DEFAULT) [address] [address] Cholesterol in HDL [Mass/Vol] 50 mg/dL Normal >=40 [facility] Comment on above: Result Comment: [<40 mg/dL: Low (High Risk)] [>59 mg/dL: High (Low Risk)] Performed By: #### L IPDR #### [facility] (DEFAULT) [address] [address] Non HDL Cholesterol 72 mg/dL Normal <130 [facility] Comment on above: Performed By: #### L IPDR #### [facility] (DEFAULT) [address] [address] Total Cholesterol/HDL Ratio 2.4 Normal <4.5 [facility] Comment on above: Performed By: #### L IPDR #### [facility] (DEFAULT) [address] [place] [address] Triglyceride [Mass/Vol] 104 mg/dL Normal <150 [facility] Comment on above: Result Comment: [<15 0 mg/dL: Desirable] [150-199 mg/dL: Borderline] [200-499 mg/dL: High] [>500 mg/dL: Very High] Performed By: #### L IPDR #### [facility] (DEFAULT) [address] [place] [address] Cholesterol [Mass/Vol] 122 mg/dL NINF - 200 mg/dL [facility] Comment on above: [<200 mg/dL: Desirab le] [200-239 mg/dL: Borderline High] [>239 mg/dL: High] Cholesterol in HDL [Mass/Vol] 50 mg/dL 40 - PINF mg/dL [facility] Comment on above: [<40 mg/dL: Low (Hig h Risk)] [>59 mg/dL: High (Low Risk)] Cholesterol in HDL [Mass/Vol] 72 mg/dL NINF - 130 mg/dL [facility] Cholesterol in LDL [Mass/Vol] 51 mg/dL 0 - 99 mg/dL [facility] Comment on above: [<100 mg/dL: Optimal ] [100-129 mg/dL: Near Optimal] [130-159 mg/dL: Borderline High] [160-189 mg/dL: High] [>189 mg/dL: Very High] Cholesterol.total/Cho lesterol in HDL [Mass ratio] 2.4 {ratio} NINF - 4.5 [facility] Interpretation and review of laboratory results Normal [facility] Triglyceride [Mass/Vol] 104 mg/dL NINF - 150 mg/dL [facility] Comment on above: [<150 mg/dL: Desirab le] [150-199 mg/dL: Borderline] [200-499 mg/dL: High] [>500 mg/dL: Very High] [facility] PROLACTINon 09-27-2022 Prolactin [Mass/Vol] 4.4 ng/mL [facility] Comment on above: Reference Range: Females Non: 2.8-29.2 ng/mL : 9.7-208.5 ng/mL Postmenopausal: 1.8-20.3 ng/mL <2 years: 3.3-14.7 ng/mL 2-5 years: 1.0-12.8 ng/mL 6-10 years: 1.2-11.4 ng/mL 11-17 years: 1.4-14.3 ng/mL Males: 2.1-17.7 ng/mL [facility] Prolactin 4.4 ng/mL Normal [facility] Comment on above: Result Comment: Andriy perkins Range: Females Non: 2.8-29.2 ng/mL : 9.7-208.5 ng/mL Postmenopausal: 1.8-20.3 ng/mL <2 years: 3.3-14.7 ng/mL 2-5 years: 1.0-12.8 ng/mL 6-10 years: 1.2-11.4 ng/mL 11-17 years: 1.4-14.3 ng/mL Males: 2.1-17.7 ng/mL Performed By: #### P ROL, TSHQR #### [facility] (DEFAULT) [address] [place] [address] TSH W/FT4 REFLEXon Interpretation and review of laboratory results Normal [facility] TSH Qn 1.680 m[IU]/L [facility] TSH 1.680 uIU/mL Normal 0.550-4.780 [facility] Comment on above: Performed By: #### P ROL, TSHQR #### [facility] (DEFAULT) [address] [place] [address] CYTOLOGY-DIRECTOR OF REGULATORY AFFAIRS, 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on 09-05-2022 ---Cytologic Interpretation--- Normal [facility] Comment on above: 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 Result Comment: ? Ne gative for Intraepithelial Lesion or Malignancy ? HPV Results Reported in Attached Report This Pap Test was imaged with the assistance of the [employer] ThinPrep Imaging System and screened by a Collections Professional. Performed By: #### T HINP #### [facility] (DEFAULT) [address] [place] [address] Case Report Normal [facility] Comment on above: 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 Result Comment: Gyne cologic Cytology Report Case: [id number] Authorizing Provider: Faith Starkey MD Collected: 09/05/2022 03:07 PM Ordering Location: Obstetrics and Gynecology Received: 09/05/2022 04:39 PM [facility] [place] First Screen: Tammy Alberto Rescreen: Monika Tenorio Specimen: Cervical/Endocervical, ThinPrep, Cervical/Endocervical Performed By: #### T HINP #### [facility] (DEFAULT) [address] [address] HPV Reflex? HPV HR with genotypi ng if NILM, ASCUS, LSIL (30 and older) Normal [facility] Comment on above: 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 Result Comment: [facility] Immediate [facility] Yes Performed By: #### T HINP #### [facility] (DEFAULT) [address] [address] LMP 08/05/2022 Normal [facility] Comment on above: 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 Performed By: #### T HINP #### [facility] (DEFAULT) [address] [address] PAP METHOD ThinPrep Normal [facility] Comment on above: 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 Performed By: #### T HINP #### [facility] (DEFAULT) [address] [address] HPV WITH GENOTYPING (WITH VIRGILIO FARRIS)on 09-05-2022 HPV Genotype 16 Negative Normal Negative [facility] Comment on above: 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 HPV DNA detection performed by Real-Time PCR. The assay detects HPV 16, 18, 31, 33, 35, 39, 45, 51, 52, 56, 58, 59, 66, 68.Testing performed at [facility]. Performed By: #### H PVGCO #### [facility] (DEFAULT) [address] [address] HPV Genotype 18 Negative Normal Negative [facility] Comment on above: 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 HPV DNA detection performed by Real-Time PCR. The assay detects HPV 16, 18, 31, 33, 35, 39, 45, 51, 52, 56, 58, 59, 66, 68.Testing performed at [facility]. Performed By: #### H PVGCO #### [facility] (DEFAULT) [address] [address] HPV Other High Risk Types, PCR Negative Normal Negative [facility] Comment on above: 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 HPV DNA detection performed by Real-Time PCR. The assay detects HPV 16, 18, 31, 33, 35, 39, 45, 51, 52, 56, 58, 59, 66, 68.Testing performed at [facility]. Performed By: #### H PVGCO #### [facility] (DEFAULT) [address] [address] COVID-19, MOLECULARon 2020 SARS-CoV-2 (COVID-19) RNA CONCHITA+probe Ql (Unsp spec) Not detected Normal Not Detected [facility] [place] Comment on above: Result Comment: This test was performed under the FDA's Emergency Use Authorization (EUA). Testing was performed using the Xpert?? Xpress SARS-CoV-2/Flu/RSV plus RT-PCR Ohm[employer] assay on the [employer] Xpress System. This test has not been approved for use in asymptomatic patients and its performance in this patient population has not been evaluated. Negative results do not rule out the presence of SARS-CoV-2/COVID-19. Fact sheets for this EUA can be found at the following links: For Healthcare Providers: https://www.fda.gov/media/452355/download For Patients: https://www.fda.gov/Gorb/250969/download Performed By: #### L [id number] #### [facility] [address] [address] Xiang Chahal M.D. [id number] CT ABDOMEN PELVIS WITH IV CO NTRAST [...] of significance including no evidence for appendicitis. [facility] Workstation ID: [id number] Dictated by: DECLAN MESSER on SatSep 15, 2021 12:10:30 PM EST Transcribed by: CARLOS WEATHERS on SatSep 15, 2021 12:18:43 PM EST Finalized by: DECLAN MESSER on SatSep 15, 2021 2:13:51 PM EST Normal [facility] [place] Comment on above: Order Comment: Injur y/Trauma [...] SatSep 15, 2021 3:56:08 PM EST Normal [facility] [place] Comment on above: Order Comment: Injur y/Trauma or Illness?:Illness/Other How long have you had these symptoms (acute/chronic)?:Acute Reason for exam?:upper abdominal pain, abnormal liver enzymes Type of Exam?:Subsequent/Follow-up Additional signs and symptoms?:RUQ pain, nausea US ABDOMEN LIMITED STUDYon 1 11-16-2020 US ABDOMEN LIMITED STUDY EXAMINATION: RIGHT UPPER QUADRANT ULTRASOUND, 09/15/2021 HISTORY: US Gallbladder Injury/Trauma or Illness?:Illness/Other upper abdominal pain COMPARISON FILMS: Right upper [...] The remaining study is within normal limits. CUONG/zakia Workstation ID: [id number] Dictated by: JEANA LIND on SatSep 15, 2021 9:29:20 AM EST Transcribed by: CARLOS WEATHERS on SatSep 15, 2021 9:33:21 AM EST Finalized by: JEANA LIND on SatSep 15, 2021 9:36:51 AM EST Normal [facility] [place] Comment on above: Order Comment: US Ga llbladder Injury/Trauma or Illness?:Illness/Other How long have you had these symptoms (acute/chronic)?:Acute Reason for exam?:RUQ pain History of cancer?:no Surgeries, chemotherapy, or radiation?:no Type of Exam?:Initial Additional signs and symptoms?:none COVID-19, MOLECULARon 2019 INTERNAL CONTROL (ABBOT ID) Pass Normal [facility] SARS-COV-2 (SPEARS ID) Not Detected Normal Not Detected [facility] POC COVID-19 Molecularon Internal Control Pass [facility] Interpretation and review of laboratory results Normal [facility] SARS-CoV-2 Not Detected Not Detected [facility] BMPon 07-29-2019 Anion gap [Moles/Vol] 19 mmol/L 10 - 2 0 mmol/L [facility] Calcium [Mass/Vol] 9.6 mg/dL 8.4 - 10. 2 mg/dL [facility] Chloride [Moles/Vol] 105 mmol/L 98 - 10 8 mmol/L [facility] Creatinine [Mass/Vol] 0.62 mg/dL 0.4 - 1.1 mg/dL [facility] GFR/1.73 sq M predicted among non-blacks MDRD (S/P/Bld) [Vol rate/Area] The eGFR should be used for monitoring renal function only and not for medication dosing. [facility] GFR/1.73 sq M.predicted CKD-EPI (S/P/Bld) [Vol rate/Area] 122 >=60 mL/min/1.73 m2 [facility] Glucose [Mass/Vol] 104 mg/dL High 65 - 99 mg/dL [facility] HCO3 [Moles/Vol] 22 mmol/L 21 - 32 mmol/L [facility] Interpretation and review of laboratory results Abnormal [facility] Potassium [Moles/Vol] 4.2 mmol/L 3.5 - 5.1 mmol/L [facility] Sodium [Moles/Vol] 142 mmol/L 135 - 145 mmol/L [facility] Urea nitrogen [Mass/Vol] 11 mg/dL 8 - 25 mg/dL [facility] Urea nitrogen/Creatinine [Mass ratio] 17.7 mg/mg [facility] CBC WITH AUTO DIFFERENTIALon 07-29-2019 Basophils (Bld) [#/Vol] 0.03 10*3/uL [facility] Basophils/100 WBC (Bld) 0.3 % [facility] Eosinophils (Bld) [#/Vol] 0.14 10*3/uL [facility] Eosinophils/100 WBC (Bld) 1.2 % [facility] Erythrocyte distribution width (RBC) [Entitic vol] 13.9 % 11.6 - 14.8 % [facility] Hematocrit (Bld) [Volume fraction] 41.0 % 36 - 46 % [facility] Hemoglobin (Bld) [Mass/Vol] 13.0 g/dL 12 - 16 g/dL [facility] Interpretation and review of laboratory results Abnormal [facility] Lymphocytes (Bld) [#/Vol] 3.19 10*3/uL [facility] Lymphocytes/100 WBC (Bld) 28.0 % [facility] MCH (RBC) [Entitic mass] 26.3 pg 26 - 34 pg [facility] MCHC (RBC) [Mass/Vol] 31.7 g/dL 31 - 37 g/dL [facility] MCV (RBC) [Entitic vol] 82.8 fL 80 - 100 fL [facility] Monocytes (Bld) [#/Vol] 0.45 10*3/uL [facility] Monocytes/100 WBC (Bld) 4.0 % [facility] Neutrophils (Bld) [#/Vol] 7.57 10*3/uL High [facility] Neutrophils/100 WBC (Bld) 66.5 % [facility] Nucleated RBC (Bld) [#/Vol] 0.00 10*3/uL [facility] Nucleated RBC/100 WBC (Bld) [Ratio] 0.0 % [facility] Platelet mean volume (Bld) [Entitic vol] 8.9 fL Low 9 - 15.5 fL [facility] Platelets (Bld) [#/Vol] 353 10*3/uL [facility] RBC (Bld) [#/Vol] 4.95 10*6/uL [facility] ealth WBC (Bld) [#/Vol] 11.38 10*3/uL High [facility] Hepatic Function Panel (LFT) on 07-29-2019 Albumin [Mass/Vol] 4.3 g/dL 3.2 - 5.2 g/dL [facility] ALP [Catalytic activity/Vol] 83 U/L 40 - 140 U/L [facility] ALT [Catalytic activity/Vol] 19 U/L 0 - 40 U/L [facility] AST [Catalytic activity/Vol] 16 U/L 0 - 45 U/L [facility] Bilirubin [Mass/Vol] mg/dL 0 - 1.3 mg/dL [facility] Bilirubin.conjugated [Mass/Vol] mg/dL 0 - 0.4 mg/dL [facility] Protein [Mass/Vol] 7.6 g/dL 6 - 8 g/dL [facility] alth Lipaseon 07-29-2019 Lipase [Catalytic activity/Vol] 30 U/L 15 - 65 U/L [facility] Otheron 07-29-2019 Interpretation and review of laboratory results Normal [facility] Interpretation and review of laboratory results Normal [facility] POC Urinalysis Dipstickon Bilirubin Ql (U) Negative Negative [facility] Glucose Ql (U) Negative Normal, Negative mg/dL [facility] Hemoglobin Ql (U) Negative Negative [facility] Ketones Ql (U) Negative Negative mg/dL [facility] Leukocyte esterase Test strip Ql (U) Negative Negative [facility] Nitrite Ql (U) Negative Negative [facility] pH (U) 5.0 [pH] [facility] Protein Ql (U) Negative Negative mg/dL [facility] Urobilinogen Qn (U) Negative <2.0, 0. 2, Normal, Negative, 1.0, 2.0, <1.0 mg/dL [facility] POC Urine Pregnancyon 2018 HCG ( test) Ql (U) Negative Negative [facility] Internal Control Pass [facility] US ABDOMEN LIMITED STUDYon 1 1. There is a small 4 mm echogenic focus in the nondependent portion of the gallbladder wall which may reflect a small amount of adherent gallbladder sludge or a small benign cholesterol polyp. No further follow-up is required. 2. Otherwise unremarkable right upper quadrant abdominal ultrasound. [employer] Workstation ID: [id number] [facility] EXAMINATION: US ABDO MEN LIMITED STUDY HISTORY: ORDERING SYSTEM PROVIDED HISTORY: [...] free fluid in the right upper quadrant. [facility] Interface, Rad In Fu ji Speechq - 07/29/2019 1:19 PM EDT EXAMINATION: [...] quadrant abdominal ultrasound. [employer]PS[employer]ges Workstation ID: [id number] [facility] Urinalysison 07-29-2019 Specific gravity (U) [Rel density] 1.005 [facility] BMPon 03-19-2019 Anion gap [Moles/Vol] 17 mmol/L 10 - 2 0 mmol/L [facility] Calcium [Mass/Vol] 9.9 mg/dL 8.4 - 10. 2 mg/dL [facility] Chloride [Moles/Vol] 104 mmol/L 98 - 10 8 mmol/L [facility] Creatinine [Mass/Vol] 0.60 mg/dL 0.4 - 1.1 mg/dL [facility] GFR/1.73 sq M predicted among non-blacks MDRD (S/P/Bld) [Vol rate/Area] The eGFR should be used for monitoring renal function only and not for medication dosing. [facility] GFR/1.73 sq M.predicted CKD-EPI (S/P/Bld) [Vol rate/Area] 124 >=60 mL/min/1.73 m2 [facility] Glucose [Mass/Vol] 115 mg/dL High 65 - 99 mg/dL [facility] HCO3 [Moles/Vol] 23 mmol/L 21 - 32 mmol/L [facility] Interpretation and review of laboratory results Abnormal [facility] Potassium [Moles/Vol] 3.9 mmol/L 3.5 - 5.1 mmol/L [facility] Sodium [Moles/Vol] 140 mmol/L 135 - 145 mmol/L [facility] Urea nitrogen [Mass/Vol] 9 mg/dL 8 - 25 mg/dL [facility] Urea nitrogen/Creatinine [Mass ratio] 15.0 mg/mg [facility] CBC WITH AUTO DIFFERENTIALon 03-19-2019 Basophils (Bld) [#/Vol] 0.04 10*3/uL [facility] Basophils/100 WBC (Bld) 0.2 % [facility] Eosinophils (Bld) [#/Vol] 0.35 10*3/uL [facility] Eosinophils/100 WBC (Bld) 2.1 % [facility] Erythrocyte distribution width (RBC) [Entitic vol] 14.0 % 11.6 - 14.8 % [facility] Hematocrit (Bld) [Volume fraction] 41.7 % 36 - 46 % [facility] Hemoglobin (Bld) [Mass/Vol] 13.4 g/dL 12 - 16 g/dL [facility] Interpretation and review of laboratory results Abnormal [facility] Lymphocytes (Bld) [#/Vol] 5.33 10*3/uL High [facility] Lymphocytes/100 WBC (Bld) 31.6 % [facility] MCH (RBC) [Entitic mass] 26.2 pg 26 - 34 pg [facility] MCHC (RBC) [Mass/Vol] 32.1 g/dL 31 - 37 g/dL [facility] MCV (RBC) [Entitic vol] 81.4 fL 80 - 100 fL [facility] Monocytes (Bld) [#/Vol] 0.93 10*3/uL High [facility] Monocytes/100 WBC (Bld) 5.5 % [facility] Neutrophils (Bld) [#/Vol] 10.22 10*3/uL High [facility] Neutrophils/100 WBC (Bld) 60.6 % [facility] Nucleated RBC (Bld) [#/Vol] 0.00 10*3/uL [facility] Nucleated RBC/100 WBC (Bld) [Ratio] 0.0 % [facility] Platelet mean volume (Bld) [Entitic vol] 8.7 fL Low 9 - 15.5 fL [facility] Platelets (Bld) [#/Vol] 418 10*3/uL High [facility] RBC (Bld) [#/Vol] 5.12 10*6/uL [facility] ealth WBC (Bld) [#/Vol] 16.87 10*3/uL [facility] D-DIMER, QUANTITATIVEon 03-01 Fibrin D-dimer FEU (PPP) [Mass/Vol] 0.42 0.27 - 0.49 mcg/mL FEU [facility] Interpretation and review of laboratory results Normal [facility] A D-dimer concentrat ion of <0.5 micrograms per milliliter FEU is considered a low probability for pulmonary embolus (PE) and deep venous thrombosis (DVT). Results of this test should always be interpreted in conjunction with the patient's medical history,clinical presentation, and other findings. Clinical diagnosis should not be based on the results of the D-dimer alone. [facility] Hepatic Function Panel (LFT) on 03-19-2019 Albumin [Mass/Vol] 4.4 g/dL 3.2 - 5.2 g/dL [facility] ALP [Catalytic activity/Vol] 109 U/L 40 - 140 U/L [facility] ALT [Catalytic activity/Vol] 17 U/L 0 - 40 U/L [facility] AST [Catalytic activity/Vol] 16 U/L 0 - 45 U/L [facility] Bilirubin [Mass/Vol] mg/dL 0 - 1.3 mg/dL [facility] Bilirubin.conjugated [Mass/Vol] mg/dL 0 - 0.4 mg/dL [facility] Protein [Mass/Vol] 8.0 g/dL 6 - 8 g/dL [facility] alth Lipaseon 03-19-2019 Lipase [Catalytic activity/Vol] 39 U/L 15 - 65 U/L [facility] Otheron 03-19-2019 Extra Tube Hold for add-ons. [facility] Comment on above: Auto resulted. Interpretation and review of laboratory results Normal [facility] POC Urine Pregnancyon 2018 HCG ( test) Ql (U) Negative Negative [facility] Internal Control Pass [facility] Interpretation and review of laboratory results Normal [facility] Specific gravity (U) [Rel density] 1.005 [facility] TROPONINon 03-19-2019 Troponin T.cardiac [Mass/Vol] ug/L <=14 ng/L [facility] Troponin T.cardiac [Mass/Vol] No biomarker evidence of cardiac injury. [facility] Troponin T.cardiac [Mass/Vol] ug/L <=14 ng/L [facility] Troponin T.cardiac [Mass/Vol] Normal [facility] XR CHEST AP/PA AND LATon Mild perihilar and lingular/bibasilar atelectatic change with no other acute process. [facility] Workstation ID: [id number] [facility] Interface, Rad In Farrukh De [employer] - 03/19/2019 6:01 AM EDT EXAMINATION: XR [...] other acute process. [facility] Workstation ID: [id number] [facility] EXAMINATION: XR CHES T AP/PA AND LAT HISTORY: ORDERING SYSTEM PROVIDED [...] unremarkable. There is no acute osseous abnormality. [facility] ECG 12-LEADon 03-18-2019 Jennifer Fernandes 03/19/2019 3:41 AM EKG 12-lead Date/Time: 03/18/2019 11:49 PM Performed by: Laurent Duque MD Authorized by: Laurent Duque MD Interpreted by ED attending physician Comparison: not compared with previous ECG BPM: 103 Comments: Rate 103, sinus tachycardia, normal QRS interval, normal axis, no acute ST elevation, interpreted by [facility] Vital Signs Date Time Vital Sign Value Performing Clinician Facility 05-15-2025 13:15-0400 Body temperature 98.5 [degF] Dr. Steffen Eisenberg MD Work Phone: [facility] 05-15-2025 13:15-0400 Diastolic blood pressure 62 mm[Hg] Dr. Steffen Eisenberg MD Work Phone: [facility] 05-15-2025 13:15-0400 Heart rate 107 /min Dr. Steffen Eisenberg MD Work Phone: [facility] 05-15-2025 13:15-0400 Respiratory rate 16 /min Dr. Steffen Eisenberg MD Work Phone: [facility] 05-15-2025 13:15-0400 SaO2% (BldA) [Mass fraction] 98 % Dr. Steffen Eisenberg MD Work Phone: [facility] 05-15-2025 13:15-0400 Systolic blood pressure 115 mm[Hg] Dr. Steffen Eisenberg MD Work Phone: [facility] 05-12-2025 06:26-0400 Body height 157.[address] Steffen Eisenberg MD Work Phone: [facility] 05-12-2025 06:26-0400 Body mass index (BMI) [Ratio] 48.7 kg/m2 Dr. Steffen Eisenberg MD Work Phone: [facility] 05-12-2025 06:26-0400 Body weight [address] Steffen Eisenberg MD Work Phone: [facility] 05-06-2025 14:10-0400 Body height 157.[address] Steffen Eisenberg MD Work Phone: [facility] 05-06-2025 14:09-0400 Body mass index (BMI) [Ratio] 49.6 kg/m2 Dr. Steffen Eisenberg MD Work Phone: [facility] 05-06-2025 14:09-0400 Body weight [address] Steffen Eisenberg MD Work Phone: [facility] 05-06-2025 14:09-0400 Diastolic blood pressure 84 mm[Hg] Dr. Steffen Eisenberg MD Work Phone: [facility] 05-06-2025 14:09-0400 Systolic blood pressure 125 mm[Hg] Dr. Steffen Eisenberg MD Work Phone: [facility] 04-28-2025 14:05-0400 Body height 157.[address] Steffen Eiesnberg MD Work Phone: [facility] 04-28-2025 14:03-0400 Body mass index (BMI) [Ratio] 48.5 kg/m2 Dr. Steffen Eisenberg MD Work Phone: [facility] 04-28-2025 14:03-0400 Body weight 120.[address] Steffen Eisenberg MD Work Phone: [facility] 04-28-2025 14:03-0400 Diastolic blood pressure 86 mm[Hg] Dr. Steffen Eisenberg MD Work Phone: [facility] 04-28-2025 14:03-0400 Systolic blood pressure 123 mm[Hg] Dr. Steffen Eisenberg MD Work Phone: [facility] 04-20-2025 14:13-0400 Body height 157.[address] Steffen Eisenberg MD Work Phone: [facility] 04-20-2025 14:13-0400 Body mass index (BMI) [Ratio] 49 kg/m2 Dr. Steffen Eisenberg MD Work Phone: [facility] 04-20-2025 14:13-0400 Body weight 121.[address] Steffen Eisenberg MD Work Phone: [facility] 04-20-2025 14:13-0400 Diastolic blood pressure 81 mm[Hg] Dr. Steffen Eisenberg MD Work Phone: [facility] 04-20-2025 14:13-0400 Systolic blood pressure 116 mm[Hg] Dr. Steffen Eisenberg MD Work Phone: [facility] 04-19-2025 10:29-0400 Heart rate 115 /min Dr. Steffen Eisenberg MD Work Phone: [facility] 04-19-2025 10:29-0400 SaO2% (BldA) [Mass fraction] 96 % Dr. Steffen Eisenberg MD Work Phone: [facility] 04-19-2025 10:03-0400 Body height 157.[address] Steffen Eisenberg MD Work Phone: [facility] 04-19-2025 10:03-0400 Body mass index (BMI) [Ratio] 49.2 kg/m2 Dr. Stefefn Eisenberg MD Work Phone: [facility] 04-19-2025 10:03-0400 Body weight 122.[address] Steffen Eisenberg MD Work Phone: [facility] 04-19-2025 09:57-0400 Body temperature 98.4 [degF] Dr. Steffen Eisenberg MD Work Phone: [facility] 04-19-2025 09:57-0400 Respiratory rate 20 /min Dr. Steffen Eisenberg MD Work Phone: [facility] 04-19-2025 09:56-0400 Diastolic blood pressure 80 mm[Hg] Dr. Steffen Eisenberg MD Work Phone: [facility] 04-19-2025 09:56-0400 Systolic blood pressure 132 mm[Hg] Dr. Steffen Eisenberg MD Work Phone: [facility] 04-07-2025 10:00-0400 Body height 157.[address] Steffen Eisenberg MD Work Phone: [facility] 04-07-2025 10:00-0400 Body mass index (BMI) [Ratio] 49 kg/m2 Dr. Steffen Eisenberg MD Work Phone: [facility] 04-07-2025 10:00-0400 Body weight 121.[address] Steffen Eisenberg MD Work Phone: [facility] 04-07-2025 10:00-0400 Diastolic blood pressure 80 mm[Hg] Dr. Steffen Eisenberg MD Work Phone: [facility] 04-07-2025 10:00-0400 Systolic blood pressure 119 mm[Hg] Dr. Steffen Eisenberg MD Work Phone: [facility] 03-26-2025 14:17-0400 Body height 157.[address] Steffen Eisenberg MD Work Phone: [facility] 03-26-2025 14:15-0400 Body mass index (BMI) [Ratio] 48.9 kg/m2 Dr. Steffen Eisenberg MD Work Phone: [facility] 03-26-2025 14:15-0400 Body weight 121.[address] Steffen Eisenberg MD Work Phone: [facility] 03-26-2025 14:15-0400 Diastolic blood pressure 82 mm[Hg] Dr. Steffen Eisenberg MD Work Phone: [facility] 03-26-2025 14:15-0400 Systolic blood pressure 131 mm[Hg] Dr. Steffen Eisenberg MD Work Phone: [facility] 03-10-2025 14:28-0400 Body height 157.[address] Steffen Eisenberg MD Work Phone: [facility] 03-10-2025 14:24-0400 Body mass index (BMI) [Ratio] 48.5 kg/m2 Dr. Steffen Eisenberg MD Work Phone: [facility] 03-10-2025 14:24-0400 Body weight 120.[address] Steffen Eisenberg MD Work Phone: [facility] 03-10-2025 14:24-0400 Diastolic blood pressure 76 mm[Hg] Dr. Steffen Eisenberg MD Work Phone: [facility] 03-10-2025 14:24-0400 Systolic blood pressure 110 mm[Hg] Dr. Steffen Eisenberg MD Work Phone: [facility] 02-26-2025 08:45-0400 Body height 157.[address] Steffen Eisenberg MD Work Phone: [facility] 02-26-2025 08:45-0400 Body mass index (BMI) [Ratio] 48.3 kg/m2 Dr. Steffen Eisenberg MD Work Phone: [facility] 02-26-2025 08:45-0400 Body weight 119.[address] Steffen Eisenberg MD Work Phone: [facility] 02-26-2025 08:45-0400 Diastolic blood pressure 66 mm[Hg] Dr. Steffen Eisenberg MD Work Phone: [facility] 02-26-2025 08:45-0400 Systolic blood pressure 102 mm[Hg] Dr. Steffen Eisenberg MD Work Phone: [facility] 01-29-2025 10:30-0400 Body mass index (BMI) [Ratio] 47.7 kg/m2 Dr. Steffen Eisenberg MD Work Phone: [facility] 01-29-2025 10:30-0400 Body weight 118.[address] Steffen Eisenberg MD Work Phone: [facility] 01-29-2025 10:30-0400 Diastolic blood pressure 81 mm[Hg] Dr. Steffen Eisenberg MD Work Phone: [facility] 01-29-2025 10:30-0400 Systolic blood pressure 114 mm[Hg] Dr. Steffen Eisenberg MD Work Phone: [facility] 01-01-2025 10:10-0400 Body mass index (BMI) [Ratio] 47.9 kg/m2 Dr. Steffen Eisenberg MD Work Phone: [facility] 01-01-2025 10:10-0400 Body weight 118.[address] Steffen Eisenberg MD Work Phone: [facility] 01-01-2025 10:10-0400 Diastolic blood pressure 82 mm[Hg] Dr. Steffen Eisenberg MD Work Phone: [facility] 01-01-2025 10:10-0400 Systolic blood pressure 125 mm[Hg] Dr. Steffen Eisenberg MD Work Phone: [facility] 12-03-2024 13:32-0500 Body mass index (BMI) [Ratio] 47.9 kg/m2 Dr. Steffen Eisenberg MD Work Phone: [facility] 12-03-2024 13:32-0500 Body weight 119.[address] Steffen Eisenberg MD Work Phone: [facility] 12-03-2024 13:32-0500 Diastolic blood pressure 82 mm[Hg] Dr. Steffen Eisenberg MD Work Phone: [facility] 12-03-2024 13:32-0500 Systolic blood pressure 120 mm[Hg] Dr. Steffen Eisenberg MD Work Phone: [facility] 11-10-2024 22:23-0500 Body temperature 98.2 [degF] Dr. Steffen Eisenberg MD Work Phone: [facility] 11-10-2024 22:23-0500 Diastolic blood pressure 97 mm[Hg] Dr. Steffen Eisenberg MD Work Phone: [facility] 11-10-2024 22:23-0500 Heart rate 115 /min Dr. Steffen Eisenberg MD Work Phone: [facility] 11-10-2024 22:23-0500 Respiratory rate 18 /min Dr. Steffen Eisenberg MD Work Phone: [facility] 11-10-2024 22:23-0500 SaO2% (BldA) [Mass fraction] 99 % Dr. Steffen Eisenberg MD Work Phone: [facility] 11-10-2024 22:23-0500 Systolic blood pressure 139 mm[Hg] Dr. Steffen Eisenberg MD Work Phone: [facility] 11-10-2024 18:31-0500 Body mass index (BMI) [Ratio] 47.4 kg/m2 Dr. Steffen Eisenberg MD Work Phone: [facility] 11-10-2024 18:31-0500 Body weight 117.[address] Steffen Eisenberg MD Work Phone: [facility] 11-05-2024 14:27-0500 Body mass index (BMI) [Ratio] 47.5 kg/m2 Dr. Steffen Eisenberg MD Work Phone: [facility] 11-05-2024 14:27-0500 Body weight 117.[address] Steffen Eisenberg MD Work Phone: [facility] 11-05-2024 14:27-0500 Diastolic blood pressure 89 mm[Hg] Dr. Steffen Eisenberg MD Work Phone: [facility] 11-05-2024 14:27-0500 Systolic blood pressure 125 mm[Hg] Dr. Steffen Eisenberg MD Work Phone: [facility] 01-12-2024 11:02-0400 Body temperature 97.9 [degF] Gina Sahu APRN.REHAB SPECIALIST Work Phone: [facility] 01-12-2024 11:02-0400 Body weight 120.3 kg Gina Sahu APRN.REHAB SPECIALIST Work Phone: [facility] 01-12-2024 11:02-0400 Diastolic blood pressure 78 mm[Hg] Gina Sahu APRN.REHAB SPECIALIST Work Phone: [facility] 01-12-2024 11:02-0400 Heart rate 134 /min Gina Sahu APRN.REHAB SPECIALIST Work Phone: [facility] 01-12-2024 11:02-0400 Respiratory rate 20 /min Gina Sahu APRN.REHAB SPECIALIST Work Phone: [facility] 01-12-2024 11:02-0400 SaO2% (BldA) [Mass fraction] 100 % Gina Sahu APRN.REHAB SPECIALIST Work Phone: [facility] 01-12-2024 11:02-0400 Systolic blood pressure 118 mm[Hg] Gina Sahu APRN.REHAB SPECIALIST Work Phone: [facility] 11-04-2023 11:53-0500 Body height 157.48 cm [facility] 11-04-2023 11:53-0500 Body mass index (BMI) [Ratio] 48.1 kg/m2 [facility] 11-04-2023 11:53-0500 Body weight 119.4 kg MARTA DEL VALLE [facility] 11-04-2023 11:53-0500 Diastolic blood pressure 89 mm[Hg] MARTA DEL VALLE [facility] 11-04-2023 11:53-0500 Systolic blood pressure 125 mm[Hg] [facility] 09:42-0500 Body height 158.1 cm Marta Del Valle MD Work Phone: [facility] 09-27-2022 09:42-0500 Body mass index (BMI) [Ratio] 42.84 kg/m2 Marta Del Valle MD Work Phone: [facility] 09-27-2022 09:42-0500 Body weight 107.11 kg Marta Del Valle MD Work Phone: [facility] 09-27-2022 09:42-0500 Diastolic blood pressure 72 mm[Hg] Marta Del Valle MD Work Phone: [facility] 09-27-2022 09:42-0500 Heart rate 113 /min Marta Del Valle MD Work Phone: [facility] 09-27-2022 09:42-0500 SaO2% (BldA) [Mass fraction] 99 % Marta Del Valle MD Work Phone: [facility] 09-27-2022 09:42-0500 Systolic blood pressure 114 mm[Hg] Marta Del Valle MD Work Phone: [facility] 09-05-2022 13:25-0500 Body height 157.5 cm Faith Starkey MD Work Phone: [facility] 09-05-2022 13:25-0500 Body mass index (BMI) [Ratio] 42.43 kg/m2 Faith Starkey MD Work Phone: [facility] 09-05-2022 13:25-0500 Body weight 105.23 kg Faith Starkey MD Work Phone: 0(419)193-405611 [address] 09-05-2022 13:25-0500 Diastolic blood pressure 70 mm[Hg] Faith Starkye MD Work Phone: 8(539)337-259111 [address] 09-05-2022 13:25-0500 Systolic blood pressure 124 mm[Hg] Faith Starkey MD Work Phone: 4(119)[phone] [place] [address] 05-17-2021 13:53-0400 Body height 157.5 cm Faith Starkey MD Work Phone: 7(390)[phone] [place] [address] 05-17-2021 13:53-0400 Body mass index (BMI) [Ratio] 44.45 kg/m2 Faith Starkey MD Work Phone: 2(491)[phone] [place] [address] 05-17-2021 13:53-0400 Body weight 110.22 kg Faith Starkey MD Work Phone: 3(625)[phone] [place] [address] 05-17-2021 13:53-0400 Diastolic blood pressure 78 mm[Hg] Faith Starkey MD Work Phone: [phone] [address] 05-17-2021 13:53-0400 Systolic blood pressure 118 mm[Hg] Faith Starkye MD Work Phone: [phone] [place] [address] 07-27-2020 10:34-0400 BP Diastolic 88 mm[Hg] Marli Thompson [facility] 07-27-2020 10:34-0400 BP Systolic 132 mm[Hg] Marli Thompson [facility] 07-27-2020 10:32-0400 BMI (Body Mass Index) 41.5 kg/m2 Marli Thompson [facility] 07-27-2020 10:32-0400 Body Temperature 99.19 [degF] Marli Jay [facility] 07-27-2020 10:32-0400 Body weight 102.92 kg Marli Thompson [facility] 07-27-2020 10:32-0400 Pulse (Heart Rate) 108 /min Marli Thompson [facility] 07-27-2020 10:32-0400 Pulse Oximetry 98 % Marli Thompson [facility] 07-27-2020 10:32-0400 Respiratory Rate 16 /min Marli Thompson [facility] 08-19-2019 10:49-0500 BMI (Body Mass Index) 38.89 kg/m2 [facility] 08-19-2019 10:49-0500 Body Temperature 98.2 [degF] [facility]-19-2019 10:49-0500 Body weight 96.44 kg [facility] 08-19-2019 10:49-0500 BP Diastolic 84 mm[Hg] [facility] 08-19-2019 10:49-0500 BP Systolic 135 mm[Hg] [facility] 08-19-2019 10:49-0500 Height 157.5 cm [facility] 08-19-2019 10:49-0500 Pulse (Heart Rate) 106 /min [facility] 07-29-2019 13:20-0400 Pulse (Heart Rate) 86 /min [facility] 07-29-2019 13:20-0400 Pulse Oximetry 98 % [facility] 07-29-2019 10:27-0400 BMI (Body Mass Index) 39.32 kg/m2 [facility] 07-29-2019 10:27-0400 Body Temperature 97.81 [degF] [facility] 07-29-2019 10:27-0400 Body weight 97.52 kg [facility] 07-29-2019 10:27-0400 BP Diastolic 77 mm[Hg] [facility] 07-29-2019 10:27-0400 BP Systolic 126 mm[Hg] [facility] 07-29-2019 10:27-0400 Height 157.5 cm [facility] 07-29-2019 10:27-0400 Respiratory Rate 18 /min [facility] 03-18-2019 23:29-0400 Body Temperature 98.91 [degF] [facility] 03-18-2019 23:29-0400 BP Diastolic 89 mm[Hg] [facility] 03-18-2019 23:29-0400 BP Systolic 149 mm[Hg] Laurent [facility] 03-18-2019 23:29-0400 Pulse (Heart Rate) 105 /min Laurent [facility] 03-18-2019 23:29-0400 Pulse Oximetry 100 % Laurent [facility] 03-18-2019 23:29-0400 Respiratory Rate 16 /min Laurent [facility] 03-18-2019 23:27-0400 BMI (Body Mass Index) 43.46 kg/m2 Laurent [facility] 03-18-2019 23:27-0400 Body weight 104.33 kg Laurent [facility] 03-18-2019 23:27-0400 Height 154.9 cm Laruent [facility] 02-18-2019 10:46-0400 BMI (Body Mass Index) 42.54 kg/m2 Janes Gutiérrez [facility] 02-18-2019 10:46-0400 Body Temperature 98.4 [degF] Janes Gutiérrez [facility] 02-18-2019 10:46-0400 Body weight 105.51 kg Janes Gutiérrez [facility] 02-18-2019 10:46-0400 BP Diastolic 96 mm[Hg] Janes Gutiérrez [facility] 02-18-2019 10:46-0400 BP Systolic 143 mm[Hg] Janes Gutiérrez [facility] 02-18-2019 10:46-0400 Height 157.5 cm Janes Gutiérrez [facility] 02-18-2019 10:46-0400 Pulse (Heart Rate) 109 /min Janes Gutiérrez [facility] 08-20-2018 08:52-0500 BMI (Body Mass Index) 41.77 kg/m2 Janes Gutiérrez [facility] 08-20-2018 08:52-0500 Body Temperature 98.1 [degF] Janes Gutiérrez [facility] 08-20-2018 08:52-0500 BP Diastolic 86 mm[Hg] Janes Gutiérrez [facility] 08-20-2018 08:52-0500 BP Systolic 120 mm[Hg] Janes Gutiérrez [facility] 08-20-2018 08:52-0500 Height 157.5 cm Janes Gutiérrez [facility] 08-20-2018 08:52-0500 Pulse (Heart Rate) 118 /min Janes Gutiérrez [facility] 08-20-2018 08:52-0500 Weight 103.6 kg Janes Gutiérrez [facility] Encounters Encounter Date Encounter Type Care Provider Facility Start: 05-26-2025 ambulatory Steffen Eisenberg Facility :[facility] Start: 05-15-2025 Non-patient / Non-visit Mariana Noe [facility] Start: 05-14-2025 Non-patient / Non-visit Mariana Coll [facility] Start: 05-13-2025 Non-patient / Non-visit Dr. Elena Lao MD -[facility] Start: 05-12-2025 Non-patient / Non-visit Dr. Mickey Bullock DO [facility] Start: 05-12-2025 ambulatory Steffen Eisenberg Facility :[facility] Start: 05-12-2025 End: 05-15-2025 Evaluation and management of inpatient Dr. Edel Bullock DO [facility] Work Phone: Start: 05-10-2025 End: 05-10-2025 [facility] Start: 05-06-2025 End: 05-06-[address] Edel Bullock DO -[facility] Work Phone: Start: 05-06-2025 End: 05-06-[address] Steffen Eisenberg MD Work Phone: -[facility] Start: 05-06-2025 End: 05-06-2025 ambulatory EDEL ROCK [facility] Start: 05-03-2025 End: 05-03-2025 ambulatory SAAD BRADLEY [facility] Start: 04-29-2025 End: 04-29-2025 ambulatory EDEL ROCK [facility] Start: 04-28-2025 End: 04-28-[address] Steffen Eisenberg MD Work Phone: -Laboratory Specimen Start: 04-28-2025 End: 04-28-[address] Edel Bullock DO -[facility] Specimen Work Phone: Start: 04-28-2025 End: 04-28-[address] Edel Bullock DO -[facility] Work Phone: Start: 04-28-2025 End: 04-28-[address] Steffen Eisenberg MD Work Phone: -[facility] Start: 04-28-2025 End: 04-28-2025 ambulatory Steffen Eisenberg [facility] Start: 04-26-2025 End: 04-26-2025 ambulatory EDEL ROCK [facility] Start: 04-22-2025 End: 04-22-[address] Steffen Eisenberg MD Work Phone: -[facility] Start: 04-22-2025 End: 04-22-[address] Edel Bullock DO -[facility] Work Phone: Start: 04-22-2025 End: 04-22-2025 ambulatory Steffen Eisenberg [facility] Start: 04-20-2025 End: 04-20-[address] Apple Lao MD -[facility] Work Phone: Start: 04-20-2025 End: 04-20-[address] Steffen Eisenberg MD Work Phone: -[facility] Start: 04-19-2025 ambulatory Steffen Eisenberg Facility :[facility] Start: 04-19-2025 Non-patient / Non-visit Kiley Whaley ms, CNM -[facility] Start: 04-19-2025 End: 04-19-2025 Patient encounter procedure Kiley Jain CNM -[facility] Work Phone: Start: 04-19-2025 End: 04-19-[address] Steffen Eisenberg MD Work Phone: -[facility] Start: 04-15-2025 End: 04-15-[address] Steffen Eisenberg MD Work Phone: -Ultrasound [facility] Start: 04-15-2025 End: 04-15-[address] Edel Bullock DO [facility] Work Phone: Start: 04-15-2025 End: 04-15-2025 ambulatory Steffen Eisenberg [facility] Start: 04-12-2025 End: 04-12-2025 ambulatory NO PRIMARY CARE [facility] Start: 04-08-2025 End: 04-08-2025 ambulatory NO PRIMARY CARE [facility] Start: 04-07-2025 End: 04-07-[address] Steffen Eisenberg MD Work Phone: [facility] Start: 04-07-2025 End: 04-07-[address] Edel Bullock DO [facility] Start: 04-07-2025 End: 04-07-[address] Edel Bullock DO [facility] Work Phone: Start: 04-07-2025 End: 04-07-[address] Steffen Eisenberg MD Work Phone: [facility] Start: 04-07-2025 End: 04-07-2025 ambulatory Steffen Eisenberg [facility] Start: 03-26-2025 End: 03-26-[address] Edel Bullock DO [facility] Work Phone: Start: 03-26-2025 End: 03-26-[address] Steffen Eisenberg MD Work Phone: [facility] Start: 03-10-2025 End: 03-10-[address] Steffen Eisenberg MD Work Phone: [facility] Work Phone: Start: 03-10-2025 End: 03-10-[address] Edel Bullock DO -Labor[facility] Specimen Work Phone: Start: 03-10-2025 End: 03-10-[address] Edel Bullock DO -[facility] Work Phone: Start: 03-10-2025 End: 03-10-[address] Steffen Eisenberg MD Work Phone: [facility] Work Phone: Start: 03-10-2025 End: 03-10-2025 ambulatory Steffen Eisenberg [facility] Start: 03-05-2025 End: 03-05-[address] Steffen Eisenberg MD Work Phone: [facility] Work Phone: Start: 03-05-2025 End: 03-05-2025 Patient encounter procedure Kiley Cristobal CNM -Laboratory Work Phone: Start: 03-05-2025 End: 03-05-2025 ambulatory Steffen Eisenberg [facility] Start: 02-26-2025 End: 02-26-[address] Apple Lao MD -[facility] Work Phone: Start: 02-26-2025 End: 02-26-[address] Steffen Eisenberg MD Work Phone: [facility] Work Phone: Start: 02-26-2025 End: 02-26-2025 ambulatory Steffen Eisenberg [facility] Start: 02-23-2025 End: 02-23-2025 ambulatory OSMANI D [facility] Start: 01-29-2025 End: 01-29-[address] Edel Bullock DO -[facility] Work Phone: Start: 01-29-2025 End: 01-29-2025 ambulatory Steffen Grandfield Facility:[facility] Start: 01-28-2025 End: 01-28-2025 ambulatory OSMANI LLANES [facility] Start: 01-01-2025 End: 01-01-[address] Apple Lao MD -[facility] Work Phone: Start: 01-01-2025 End: 01-01-2025 ambulatory Steffen Grandfield Facility:[facility] Start: 12-28-2024 End: 12-28-2024 ambulatory [facility] Start: 12-03-2024 End: 12-03-[address] Edel Bullock DO -[facility] Work Phone: Start: 12-03-2024 End: 12-03-2024 ambulatory Steffen Grandfield Facility:[facility] Start: 11-10-2024 End: 11-10-2024 Emergency department patient visit Dr. Ld Fermin MD -Emergency Department Work Phone: Start: 11-05-2024 Encounter for genera l adult medical examination without abnormal findings Steffen Faina [facility] Start: 11-05-2024 End: 11-05-[address] Edel Bullock DO -[facility] Work Phone: Start: 11-05-2024 End: 11-05-2024 ambulatory Steffen Faina Facility:[facility] Start: 11-03-2024 End: 11-03-2024 ambulatory Facility:[facility] Start: 11-03-2024 End: 11-03-2024 Telemedicine consultation with patient Demarcus Kristofer WRIGHT Work Phone: Telemedicine Comment on above: Viral URI with cough (Primary Dx) Start: 11-03-2024 End: 11-04-2024 ambulatory Steffen Faina Facility:[facility] Start: 10-23-2024 End: 10-23-2024 ambulatory Steffen Faina Facility:[facility] Start: 10-15-2024 End: 10-15-2024 ambulatory Steffen Faina Facility:[facility] Start: 10-09-2024 End: 10-09-2024 ambulatory Steffen Grandfield Facility:[facility] Start: 10-09-2024 End: 10-09-2024 ambulatory Steffen Grandfield Facility:[facility] Start: 10-02-2024 ambulatory Aida Shields Facility :[facility] Start: 10-02-2024 End: 10-02-2024 Subsequent hospital visit by physician Tucker Jimenez 2 [facility] Comment on above: Encounter for pregna ncy test, result positive ([facility]) Start: 10-02-2024 End: 10-02-2024 ambulatory [facility] Start: 09-25-2024 End: 09-25-2024 Subsequent hospital visit by physician Tucker Jimenez 2 [facility] Comment on above: Encounter for pregna ncy test, result positive ([facility]) Start: 09-25-2024 End: 09-25-2024 ambulatory [facility] Start: 09-15-2024 End: 09-15-2024 ambulatory [facility] Start: 09-11-2024 End: 09-11-2024 ambulatory [facility] Start: 09-09-2024 End: 09-09-2024 ambulatory [facility] Start: 09-04-2024 End: 09-04-2024 ambulatory STEFFEN [facility] Start: 08-25-2024 End: 08-25-2024 ambulatory [facility] Start: 08-21-2024 End: 08-21-2024 Subsequent hospital visit by physician Tucker Jimenez 1 [facility] Comment on above: Encounter for assist ed reproductive fertility procedure cycle Start: 08-21-2024 End: 08-21-2024 ambulatory [facility] Start: 08-14-2024 End: 08-14-2024 Subsequent hospital visit by physician Tucker Ultrasound 2 [facility] Comment on above: Encounter for assist ed reproductive fertility procedure cycle Start: 08-14-2024 End: 08-14-2024 ambulatory [facility] Start: 08-04-2024 End: 08-04-2024 ambulatory Steffen Grandfield Facility:[facility] Start: 07-29-2024 End: 07-29-2024 Jenifer Del Valle MD Work Phone: [facility] Start: 07-20-2024 End: 07-20-2024 ambulatory Steffen Grandfield Facility:[facility] Start: 06-24-2024 End: 06-24-2024 Subsequent hospital visit by physician Tucker Jimenez 2 [facility] Comment on above: Encounter for assist ed reproductive fertility procedure cycle Start: 06-24-2024 End: 06-24-2024 ambulatory [facility] Start: 06-22-2024 End: 06-22-2024 Subsequent hospital visit by physician Tucker Ultrasound 2 [facility] Comment on above: Encounter for assist ed reproductive fertility procedure cycle Start: 06-22-2024 End: 06-22-2024 ambulatory [facility] Start: 06-19-2024 End: 06-19-2024 Subsequent hospital visit by physician Tucker Ultrasound 2 [facility] Comment on above: Encounter for assist ed reproductive fertility procedure cycle Start: 06-19-2024 End: 06-19-2024 ambulatory [facility] Start: 06-15-2024 End: 06-15-2024 Subsequent hospital visit by physician Tucker Ultrasound 2 [facility] Comment on above: Encounter for assist ed reproductive fertility procedure cycle Start: 06-15-2024 End: 06-15-2024 ambulatory [facility] Start: 05-27-2024 End: 05-27-2024 ambulatory [facility] Facility:[facility] Start: 01-12-2024 End: 01-12-2024 ambulatory Facility:[facility] Start: 01-12-2024 End: 01-12-2024 Patient encounter procedure Gina Sahu ABDOUL Work Phone: [facility] Comment on above: URI, acute (Primary Dx); Acute otitis media, right; Acute cough Start: 12-09-2023 Non-patient / Non-visit MARTA STEPHEN [facility] Start: 12-09-2023 End: 12-09-2023 ambulatory MARTA [facility] Work Phone: Start: 12-09-2023 End: 12-09-2023 Patient encounter [facility] Work Phone: Start: 11-04-2023 End: 11-04-2023 Patient encounter procedure MARTA DEL VALLE [facility] Work Phone: Start: 05-01-2023 Patient encounter status Marta Del Valle MD Work Phone: [facility] Start: 05-01-2023 ambulatory MARTA DEL VALLE Facili ty:[facility] Start: 04-03-2023 ambulatory MARTA DEL VALLE Facili ty:[facility] Start: 01-09-2023 ambulatory MARTA DEL VALLE Facili ty:[facility] Start: 01-09-2023 End: 01-09-2023 Subsequent hospital visit by physician Lawrence Young MD Work Phone: [facility] [place] Comment on above: Arrived Start: 12-19-2022 ambulatory SELF SELF Facility:[facility] Start: 09-27-2022 ambulatory SELF SELF Facility:[facility] Start: 09-27-2022 Encounter for genera l adult medical examination without abnormal findings MARTA DEL VALLE Facility:[facility] Start: 09-27-2022 End: 09-27-2022 Patient encounter status Marta Del Valle MD Work Phone: [facility] Start: 09-27-2022 End: 09-27-2022 Periodic preventive med est patient 18-39 yrs Marta Del Valle MD Work Phone: [facility] Comment on above: Well adult exam (Cristy hector Dx); Prolonged ; Need for influenza vaccination; MELINA (generalized anxiety disorder); Gastroesophageal reflux disease without esophagitis; Recurrent major depressive disorder, in full remission Start: 09-05-2022 ambulatory SELF SELF Facility:[facility] Start: 09-05-2022 Encounter for gynecological examination (general) (routine) without abnormal findings FAITH STARKEY Facility:[facility] Start: 09-05-2022 End: 09-05-2022 Patient encounter procedure Faith Starkey MD Work Phone: [facility] [place] Start: 09-05-2022 End: 09-05-2022 Periodic preventive med est patient 18-39 yrs Faith Starkey MD Work Phone: [facility] [place] Comment on above: Well woman exam with routine gynecological exam (Primary Dx) Start: 08-10-2022 ambulatory MARTA DEL VALLE Facili ty:[facility] Start: 10-03-2021 End: 10-07-20[facility] Start: 09-27-2021 Patient encounter status Radha Starkey MD Work Phone: [facility] Start: 09-15-2021 End: 09-16-[address] [facility] Start: 05-17-2021 End: 05-17-2021 Subsequent care visit Faith Starkey MD Work Phone: [facility] [place] Comment on above: Supervision of mirna nair first , antepartum (Primary Dx) Start: 08-23-2020 End: 08-23-2020 Patient encounter procedure WILL PRABHAKAR [facility] Start: 08-23-2020 End: 08-23-2020 Office outpatient new 30 minutes Will Prabhakar Work Phone: [facility] Comment on above: Acne vulgaris (Prima ry Dx); Dermal nevus of abdominal wall Start: 07-27-2020 End: 07-27-2020 Patient encounter procedure MARTA DEL VALLE [facility] Start: 07-27-2020 End: 07-27-2020 Office outpatient new 30 minutes Marli Jay Work Phone: [facility] Comment on above: Close Exposure to Co vid-19 Virus (Primary Dx); Generalized body aches; Diarrhea, unspecified type Start: 08-19-2019 End: 08-19-2019 Office outpatient visit 15 minutes Janes Gutiérrez Work Phone: [facility] Comment on above: Leukocytosis, unspec ified type (Primary Dx) Start: 07-29-2019 End: 07-29-2019 Emergency department patient visit Robert Danyel Peterson Work Phone: [facility] Comment on above: Epigastric pain (Cristy hector Dx) Start: 05-09-2019 End: 05-09-2019 Refill Marta Del Valle Work Phone: [facility] General Internal Medicine [facility] Start: 03-19-2019 Follow-up encounter Marta queen Work Phone: [facility] General Internal Medicine [facility] Comment on above: RE: Follow up from E R Visit Start: 03-19-2019 End: 03-19-2019 Patient encounter procedure Marta Del Valle Work Phone: [facility] Start: 03-18-2019 End: 03-19-2019 Emergency department patient visit Laurent Duque Work Phone: [facility] [place] [facility] Comment on above: Abdominal pain, unsp ecified abdominal location (Primary Dx); Chest pain, unspecified type; Leukocytosis, unspecified type Start: 03-18-2019 End: 03-18-2019 Patient encounter procedure Marta Del Valle Work Phone: [facility] Start: 02-18-2019 End: 01-22-2020 Office outpatient visit 15 minutes Janes Gutiérrez Work Phone: [facility] Comment on above: Leukocytosis, unspec ified type (Primary Dx) Start: 08-20-2018 End: 08-20-2018 Office outpatient visit 15 minutes Colleenkin Marla Work Phone: [facility] Comment on above: Leukocytosis, unspec ified type (Primary Dx) Start: 12-09-2013 End: 12-27-2020 Patient encounter status Faith Starkey MD Work Phone: [facility] Start: 12-03-2013 End: 03-03-2014 ambulatory [facility] Procedures Date Procedure Procedure Detail Performing Clinician Start: 05-13-2025 Fibrinogen assay, quantitative Dr. Steffen Eisenberg MD Work Phone: Start: 05-12-2025 Hemoglobin F measure ment using Klemariela-Aleksandar method Dr. Steffen Eisenberg MD Work Phone: Comment on above: Kleihauer Betke Stud y Reference: Negative POSITIVE AB* Feto- maternal hemorrhage ( RBCs): 10 mL. TESTING PERFORMED AT [facility]. ORIGINAL REPORT ON FILE IN LAB CONTAINS ADDITIONAL TEST SITE INFORMATION. _ Start: 05-12-2025 Methadone measurement, urine Dr. Steffen Eisenberg MD Work Phone: Start: 05-12-2025 Serologic test for syphilis Dr. Steffen Eisenberg MD Work Phone: Start: 04-28-2025 Beta-hemolytic Strep tococcus culture Dr. [...] Work Phone: Comment on above: Performed at: [place] [id number] Director: Huan Kuhn PhD, Phone: [phone] Start: 03-10-2025 Gram stain microscopy D tapan [...] Us preg uterus real time w/image dcmtn transmerrill Braxton MD Work Phone: Start: 09-25-2024 Us preg uterus real time w/image datn transvag Levon Braxton MD Work Phone: Start: [...] DO H/O: section H/O sectio n Kiley Jian CNM H/O: section H/O sectio n Dr. Apple Lao MD H/O: section H/O sectio n Dr. Edel Bullock DO H/O: section H/O sectio n Dr. Edel Bullock DO H/O: section S/P Dr. Katie Eisenberg MD Work Phone: H/O: section H/O sectio n Dr. Edel Bullock DO Plan of Treatment Date Care Activity Detail Author Start: 2039 Zoster Vaccines (1 of 2) Zoste r Vaccines (1 of 2) [facility] Start: 05-03-2031 DTaP/Tdap/Td Vaccine s (3 - Td or Tdap) DTaP/Tdap/Td Vaccines (3 - Td or Tdap) [facility] Start: 05-03-2031 Tetanus vaccination TETANUS [facility] Start: 05-03-2031 Urine microalbumin profile DTaP,Tdap,Td Vaccine (3 - Td or Tdap) [facility] Start: 08-27-2027 Tetanus vaccination [facility] Start: 09-05-2025 Screening for malign ant neoplasm of cervix [facility] Start: 05-15-2025 [facility] Start: 05-13-2025 Application of abdom inal corset [facility] Start: 05-13-2025 Administration of bl ood product [facility] Start: 05-13-2025 Consultation [facility] Start: 05-12-2025 End: 05-13-2025 [facility] Start: 05-12-2025 Administration of bl ood product [facility] Start: 05-12-2025 Administration of medication [facility] Start: 05-12-2025 Ambulation therapy management [facility] Start: 05-12-2025 Application of device [facility] Start: 05-12-2025 Application of intermittent pneumatic compression device [facility] Start: 05-12-2025 Assessment of risk o f venous thromboembolism [facility] Start: 05-12-2025 Catheterization of vein [facility] Start: 05-12-2025 Deep breathing and coughing exercises [facility] Start: 05-12-2025 Exercises [facility] Start: 05-12-2025 Measuring intake and output [facility] Start: 05-12-2025 Notification of physician [facility] Start: 05-12-2025 Procedure discontinued [facility] Start: 05-12-2025 Provision of activit y privileges [facility] Start: 05-12-2025 Skin care [facility] Start: 05-12-2025 Vital signs measurements [facility] Start: 05-12-2025 Wound care [facility] Start: 05-12-2025 Application of abdom inal corset [facility] Start: 05-12-2025 section Repeat C-Sect ion (Not Applicable) [facility] Start: 05-12-2025 Admission procedure [facility] Start: 04-19-2025 Nonstress test [facility] Start: 04-19-2025 Obstetric monitoring [facility] Start: 04-19-2025 [facility] Start: 04-19-2025 Vital signs measurements [facility] Start: 04-19-2025 Ultrasonography for biophysical profile without non-stress testing OB Biophysical Prof W/O NST [facility] Start: 04-07-2025 Comprehensive metabo lic 2000 panel - Serum or Plasma [facility] Start: 04-07-2025 Procedure [facility] Start: 03-10-2025 Source specific culture Genital Cult ure [facility] Start: 03-10-2025 Source specific culture [facility] Start: 02-26-2025 CBC W Auto Different ial panel - Blood [facility] Start: 02-26-2025 Measurement of gluco se 2 hours after glucose challenge for glucose tolerance test [facility] Start: 02-26-2025 Serologic test for syphilis [facility] Start: 02-26-2025 [facility] Start: 11-10-2024 End: 11-10-2024 [facility] Start: 10-02-2024 End: 10-02-2024 Patient encounter procedure 10/02/2024 9:15 AM EST Appointment [address] [phone] [facility] Start: 08-25-2024 End: 08-25-2024 Patient encounter procedure 08/25/2024 8:30 AM EST Appointment [address] [phone] [facility] Start: 08-21-2024 End: 08-21-2024 Patient encounter procedure 08/21/2024 7:45 AM EST Appointment [address] [phone] [facility] Start: 06-24-2024 End: 06-24-2024 Patient encounter procedure 06/24/2024 7:30 AM EDT Appointment [address] [phone] [facility] Start: 06-22-2024 End: 06-22-2024 Patient encounter procedure 06/22/2024 7:45 AM EDT Appointment [address] [phone] [facility] Start: 06-19-2024 End: 06-19-2024 Patient encounter procedure 06/19/2024 7:45 AM EDT Appointment [address] [place] [address] [facility] Start: 05-31-2024 COVID-19 Vaccine () COVID-19 Vaccine () [facility] Start: 05-31-2024 COVID-19 VACCINE () COVID-19 VACCINE () [facility] Start: 05-31-2024 COVID-19 Vaccine () COVID-19 Vaccine () [facility] Start: 05-31-2024 Influenza vaccination [facility] Start: 05-01-2024 PREVENTATIVE HEALTH VISIT PREV ENTATIVE HEALTH VISIT [facility] Start: 09-30-2023 Behavioral Health Screening Behavioral Health Screening [facility] Start: 09-27-2023 End: 09-27-2023 Patient encounter procedure 09/27/2023 Office Visit MACHINE FIXER Faith Starkey MD [address] [place] [phone] [facility] [place] Start: 09-27-2023 PREVENTATIVE HEALTH VISIT PREV ENTATIVE HEALTH VISIT [facility] Start: 09-05-2023 PREVENTATIVE HEALTH VISIT PREV ENTATIVE HEALTH VISIT [facility] Start: 05-31-2023 Covid-19 Vaccine () Covid-19 Vaccine () [facility] Start: 05-01-2023 End: 05-01-2023 Patient encounter procedure 05/01/2023 Office Visit General Medicine Marta Del Valle MD [address] [place] [address] [facility] Start: 09-27-2022 End: 09-27-2022 Patient encounter procedure 09/27/2022 Office Visit General Marta Thakur MD [address] [place] [address] [facility] Start: 09-02-2022 Microscopic observat ion [Identifier] in Cervix by Cyto stain PAP SMEAR [facility] Start: 09-02-2022 Screening for malign ant neoplasm of cervix PAP SMEAR [facility] Start: 05-31-2022 Influenza vaccination INFLUENZA VACC INE (#1) [facility] Start: 09-28-2021 PREVENTATIVE HEALTH VISIT PREV ENTATIVE HEALTH VISIT [facility] Start: 09-27-2021 End: 09-27-2021 Patient encounter procedure 09/27/2021 Office Visit General Medicine Marta Del Valle MD [address] [place] [phone] [facility] Start: 08-29-2021 End: 08-29-2021 Office Visit 08/29/2021 Office Visit Dermatology SrinivasWill MD [address] [place] [address] [phone] [facility] Start: 06-21-2021 End: 06-21-2021 Follow-up encounter 06/21/2021 Follow Up Visit MACHINE FIXER Faith Starkey MD [address] [employer] [address] [place] [phone] Obstetrics, Gynecology and Midwifery [facility] [place] Start: 06-07-2021 End: 06-07-2021 Follow-up encounter 06/07/2021 Follow Up Visit Maternal Medicine [facility] [place] Start: 05-31-2021 Influenza vaccination INFLUENZA VACC INE (#1) [facility] Start: 05-31-2021 End: 05-31-2021 Follow-up encounter 05/31/2021 Follow Up Visit MACHINE FIXER Faith Starkey MD [address] [phone] Obstetrics, Gynecology and Midwifery [facility] [place] Start: 05-22-2021 End: 05-22-2021 ambulatory 05/22/2021 Rehab Services Visit Sports Medicine and Rehabilitation Faith Starkey MD [address] [phone] Tere Cross, PT [address] [place] [address] [place] [address] [facility] Start: 04-01-2021 COVID-19 VACCINE (3 - Booster for Pfizer series) COVID-19 VACCINE (3 - Booster for Pfizer series) [facility] Start: 03-29-2021 Influenza vaccinatio n given Sequential Influenza Vaccine (#1) [facility] Comment on above: Postponed from 05/31 (Patient Refused) Start: 08-23-2020 End: 08-23-2020 Office Visit 08/23/2020 Office Visit Dermatology SrinivasWill MD [address] [place] [address] [phone] [facility] Start: 2019 Screening for malign ant neoplasm of cervix HPV Testing [facility] Start: 09-02-2019 End: 09-02-2019 Office Visit 09/02/2019 Office Visit MACHINE FIXER Faith Starkey MD [address] [phone] MACHINE FIXER [facility] Start: 08-19-2019 End: 08-19-2019 Office Visit 08/19/2019 Office Visit Oncology Janes Gutiérrez MD [address] [place] [address] [phone] [facility] Start: 05-31-2019 Influenza vaccination INFLUENZA VACC INE (#1) [facility] Start: 05-31-2019 Influenza vaccinatio n given [facility] Start: 05-08-2019 Microscopic observat ion Cyto stain Nom (Cvx) PAP SMEAR [facility] Start: 05-08-2019 Screening for malign ant neoplasm of cervix PAP SMEAR [facility] Start: 02-18-2019 End: 02-18-2019 Ambulatory 02/18/2019 Office Visit Oncology Janes Gutiérrez MD [address] [facility] [address] [place] [address] [phone] [facility] Start: 02-17-2019 End: 08-21-2019 Complete blood count with white cell differential, manual CBC and Differential Routine Leukocytosis, Unspecified Type Expected: 02/17/2019, Expires: 08/21/2019 [facility] Comment on above: Expected: 02/17/2019 , Expires: 08/21/2019 Start: 05-31-2018 Influenza vaccination SEQUENTI AL INFLUENZA VACCINE (#1) [facility] Start: 01-16-2016 Screening for malign ant neoplasm of cervix Pap Testing [facility] Start: 01-15-2014 Screening for malign ant neoplasm of cervix Cervical Cancer Screening [facility] Start: 2010 Screening for malign ant neoplasm of cervix HPV/Cotest [facility] Start: 2008 Hepatitis B vaccination HEP B VACCINE (1 of 3 - 19+ 3-dose series) [facility] Start: 2008 Hepatitis B Vaccine (1 of 3 - 19+ 3-dose series) Hepatitis B Vaccine (1 of 3 - 19+ 3-dose series) [facility] Start: 2008 Hepatitis B Vaccines (1 of 3 - 19+ 3-dose series) Hepatitis B Vaccines (1 of 3 - 19+ 3-dose series) [facility] Start: 2007 Anxiety Screening Anxiety Screening [facility] Start: 2007 [facility] Start: 2007 Hepatitis C antibody , confirmatory test Hepatitis C Screening [facility] Start: 2007 Hepatitis C screening Hepatitis C Sc manish [facility] Start: 2007 HIV screening HIV Screening [facility] Start: 2004 HIV screening HIV Screening [facility] Start: 2002 Varicella vaccination Varicell a Vaccines (1 of 2 - 13+ 2-dose series) [facility] Start: 2001 Adolescent depressio n screening assessment Depression Screening (PHQ9) [facility] Start: 1992 History and physical examination, annual for health maintenance Wellness Visit [facility] Start: 1990 MMR Vaccines (1 of 1 - Standard series) MMR Vaccines (1 of 1 - Standard series) [facility] Start: 1989 HIV screening HIV Screening [facility] Start: 1989 Lipid panel Lipid Panel [facility] Start: 1989 Screening for malign ant neoplasm of cervix PAP SMEAR [facility] Start: 1989 Yearly Adult Physical Yearly Adult P hysical [facility] Alanine aminotransfe rase [Enzymatic activity/volume] in Serum or Plasma [facility] Albumin [Mass/volume ] in Serum or Plasma [facility] Alkaline phosphatase [Enzymatic activity/volume] in Serum or Plasma [facility] Anion gap in Serum o r Plasma [facility] Bilirubin, total measurement [facility] BUN/Creatinine ratio [facility] Calcium [Mass/volume ] in Serum or Plasma [facility] Carbon dioxide, tota l [Moles/volume] in Central venous blood [facility] Creatinine [Mass/vol ume] in Serum or Plasma [facility] Cytology Cervical or vaginal smear or scraping study CYTOLOGY-DIRECTOR OF REGULATORY AFFAIRS, 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 Cytology Routine Well woman exam with routine gynecological exam 09/05/2022 3:07 PM EST [facility] Erythrocyte mean corpuscular volume determination [facility] Glucose [Mass/volume ] in Serum or Plasma [facility] Hematocrit [Volume Fraction] of Blood [facility] Hemoglobin [Mass/vol ume] in Blood [facility] Leukocytes [#/volume ] in Blood [facility] Mean corpuscular hemoglobin concentration determination [facility] Mean corpuscular hemoglobin determination [facility] Measurement of renal function [facility] Neutrophil count [facility] Neutrophil percent differential count [facility] Patient Education [facility] Work Phone: Patient referral [facility] Work Phone: Platelets [#/volume] in Blood [facility] Potassium measurement [facility] Red blood cell count [facility] Red cell distributio n width determination [facility] End: 06-19-2024 GERRY US Pelvis Limited Follicles - Follicle Studies Performed [facility] Work Phone: Comment on above: Once for 1 Occurrenc es starting 06/19/2024 until 06/19/2024 End: 06-22-2024 GERRY US Pelvis Limited Follicles - Follicle Studies Performed [facility] Work Phone: Comment on above: Once for 1 Occurrenc es starting 06/22/2024 until 06/22/2024 End: 06-24-2024 GERRY US Pelvis Limited Follicles - Follicle Studies Performed [facility] Work Phone: Comment on above: Once for 1 Occurrenc es starting 06/24/2024 until 06/24/2024 Serum chloride measurement [facility] Sodium measurement [facility] Streptococcus agalac tiae [Presence] in Unspecified specimen by Organism specific culture [facility] Total protein measurement [facility] Urea nitrogen [Mass/volume] in Serum or Plasma [facility] End: 08-14-2024 US Pelvis transvaginal [facility] [...] 1 Occurrenc es starting 06/24/2024 until 06/24/2024 [facility] Immunizations Immunization Date Immunization Notes Care Provider Audrey rahman 03-10-2025 tetanus toxoid, redu mason diphtheria toxoid, and acellular pertussis vaccine, adsorbed Dr. Steffen Eisenberg MD Work Phone: [facility] 09-27-2022 influenza, injectabl e, quadrivalent, preservative free Marta Del Valle MD Work Phone: [facility] 09-27-2022 influenza quad vacci ne 0.5 ML Suspension Prefilled Syringe Marta Del Valle MD Work Phone: [facility] 09-27-2022 influenza virus vacc ine, unspecified formulation Gina Sahu APRN.CNP Work Phone: [facility] 06-21-2021 influenza, injectabl e, quadrivalent, preservative free Faith Starkey MD Work Phone: [facility] 06-21-2021 influenza virus vacc ine, unspecified formulation Faith Starkey MD Work Phone: [facility] 05-03-2021 tetanus toxoid, redu mason diphtheria toxoid, and acellular pertussis vaccine, adsorbed Faith Starkey MD Work Phone: [facility] 02-04-2021 Covid (Pfizer) Dr. Steffen chao MD Work Phone: [facility] 01-14-2021 Covid (Pfizer) Dr. Steffen chao MD Work Phone: [facility] 09-07-2020 Influenza, injectabl e, Madin Erlinda Canine Kidney, preservative free, quadrivalent Dr. Steffen Eisenberg MD Work Phone: [facility] 07-23-2019 influenza, injectabl e, quadrivalent, preservative free Faith Starkey MD Work Phone: [facility] 07-23-2019 influenza virus vacc ine, unspecified formulation Faith Starkey MD Work Phone: [facility] 07-31-2018 influenza, injectabl e, quadrivalent, contains preservative [facility] 07-31-2018 influenza, injectabl e, quadrivalent, preservative free Dr. Steffen Eisenberg MD Work Phone: [facility] 07-31-2018 influenza virus vacc ine, unspecified formulation [facility] 08-27-2017 tetanus toxoid, redu mason diphtheria toxoid, and acellular pertussis vaccine, adsorbed [facility] 11-15-2016 Human Papillomavirus 9-valent vaccine [facility] 06-18-2016 Human Papillomavirus 9-valent vaccine [facility] 05-08-2016 Human Papillomavirus 9-valent vaccine [facility] 09-20-2015 influenza virus vacc ine, whole virus [facility] 09-20-2015 influenza, injectabl e, quadrivalent, preservative free Dr. Steffen Eisenberg MD Work Phone: [facility] 08-18-2014 influenza virus vacc ine, whole virus Marta [facility] 08-18-2014 influenza, injectabl e, quadrivalent, preservative free Dr. Steffen Eisenberg MD Work Phone: [facility] 08-30-2013 influenza virus vacc ine, unspecified formulation [facility] Payers Date Payer Category Payer [employer] [facility] [id number] 2024 Unknown [id number] 2024 Self-pay 2023 Managed Care (Private) [facility] 1.2.840.093551.1.13.647.2. 7.9.783810.820146.315 2022 Unknown [id number] 2022 Unknown [id number] 2021 Private Health Insurance 1.2 .840.681814.1.13.172.2. 7.3.249488.315 2021 Unknown [id number] 2021 Unknown [id number] 2017 Unknown [id number] 1.2.840.649606.1.13.172.2. 7.3.609532.315 2017 Unknown [id number] 2017 Unknown [id number] 1.2.840.338699.1.13.385.2. 7.3.266768.315 2014 Unknown [id number] 2003 Unknown 1.2.840.478588. 1.13.159.2. 7.3.151620.315 2003 Unknown [id number] 1989 Unknown [id number] 2.16.840.1.403681.3.579.2. 903 1989 Unknown [id number] 2.16.840.1.534119.3.579.2. 903 1989 Unknown [id number] 2.16.840.1.420424.3.579.2. 902 1989 Unknown [id number] 2.16.840.1.376304.3.579.2. 900 1989 Unknown [id number] 2.16.840.1.632981.3.579.2. 900 1989 Unknown [id number] 2.16.840.1.047709.3.579.2. 594 1989 Unknown [id number] 2.16.840.1.175501.3.579.2. 594 1989 Unknown [id number] 2.16840.1.914007.3.579.2. 594 1989 Unknown [id number] 2.16.840.1.767700.3.579.2. 594 1989 Unknown [id number] 2.16.840.1.771123.3.579.2. 594 1989 Unknown [id number] 2.16.840.1.158467.3.579.2. 594 1989 Unknown [id number] 2.16.840.1.446075.3.579.2. 594 1989 Unknown [id number] 2.16.840.1.804908.3.579.2. 594 1989 Unknown [id number] 2.16.840.1.166461.3.579.2. 594 1989 Unknown [id number] 2.16.840.1.548797.3.579.2. 594 1989 Unknown [id number] 2.16.840.1.718860.3.579.2. 594 1989 Unknown [id number] 2.16.840.1.612966.3.579.2. 1243 1989 Unknown [id number] 2.16.840.1.343579.3.579.2. 1242 1989 Unknown [id number] 2.16.840.1.358729.3.579.2. 1242 1989 Unknown [id number] 2.16.840.1.621900.3.579.2. 1242 1989 Unknown [id number] 2.16.840.1.867981.3.579.2. 1242 1989 Unknown [id number] 2.16.840.1.339486.3.579.2. 1242 1989 Unknown [id number] 2.16.840.1.197186.3.579.2. 1242 1989 Unknown [id number] 2.16.840.1.141548.3.579.2. 1242 1989 Unknown [id number] 2.16.840.1.705694.3.579.2. 1244 1989 Unknown [id number] 2.16.840.1.063159.3.579.2. 1244 1989 Unknown [id number] 2.16.840.1.349598.3.579.2. 1244 1989 Unknown [id number] 2.16.840.1.630179.3.579.2. 1244 1989 Unknown [id number] 2.16.840.1.602843.3.579.2. 1245 1989 Unknown [id number] 2.16.840.1.486555.3.579.2. 1244 1989 Unknown [id number] 2.16.840.1.055493.3.579.2. 1244 1989 Unknown [id number] 2.16.840.1.272333.3.579.2. 1244 1989 Unknown [id number] 2.16.840.1.920595.3.579.2. 1244 1989 Unknown [id number] 2.16.840.1.866224.3.579.2. 1244 1989 Unknown [id number] 2.16.840.1.436340.3.579.2. 1244 1989 Unknown [id number] 2.16.840.1.910867.3.579.2. 1244 1989 Unknown [id number] 2.16.840.1.694161.3.579.2. 1244 1989 Unknown [id number] 2.16.840.1.523545.3.579.2. 1989 Unknown [id number] 2.16.840.1.263242.3.579.2. 1989 Unknown [id number] 2.16.840.1.464328.3.579.2. 1989 Unknown [id number] 2.16.840.1.971013.3.579.2. 1989 Unknown [id number] 2.16.840.1.578605.3.579.2. 1989 Unknown [id number] 2.16.840.1.272667.3.579.2. 1989 Unknown [id number] 2.16.840.1.032269.3.579.2 1989 Unknown [id number] 2.16840.1.048650.3.579.2. 479 1989 Unknown [id number] 2.16840.1.314874.3.579.2. 479 1989 Unknown [id number] 2.16840.1.973659.3.579.2. 479 Unknown [id number] 2.840.1.622029.3.579.2. 462 Unknown [id number] 2.840.1.994724.3.579.2. 462 Unknown [id number] 2.840.1.122661.3.579.2. 462 Unknown [id number] 2.840.1.262331.3.579.2. 462 Unknown [id number] 2.840.1.937937.3.579.2. 462 Unknown [id number] 2.840.1.433372.3.579.2. 462 Unknown [id number] 2.840.1.312933.3.579.2. 462 Unknown [id number] 2.840.1.101011.3.579.2. 462 Unknown [id number] 2.840.1.024093.3.579.2. 462 Unknown [id number] 2.840.1.408221.3.579.2. 462 Unknown [id number] 2.16840.1.163423.3.579.2. 462 Unknown [id number] 2.840.1.624939.3.579.2. 462 Unknown [id number] 2.16840.1.757939.3.579.2. 462 Unknown [id number] 2.16840.1.849632.3.579.2. 462 Unknown [id number] 2.840.1.728331.3.579.2. 462 Unknown [id number] 2.16.840.1.287137.3.579.2. 462 Unknown [id number] 2.16.840.1.919178.3.579.2. 462 Unknown [id number] 2.16.840.1.502288.3.579.2. 462 Unknown [id number] 2.16.840.1.296255.3.579.2. 462 Unknown [id number] 2.16.840.1.960775.3.579.2. 462 Unknown [id number] 2.16.840.1.137773.3.579.2. 462 Unknown [id number] 2.16840.1.048413.3.579.2. 462 Unknown [id number] 2.16840.1.706463.3.579.2. 462 Unknown [id number] 2.16840.1.380830.3.579.2. 462 Unknown [id number] 2.16840.1.857594.3.579.2. 462 Unknown [id number] 2.16840.1.202076.3.579.2. 462 Unknown [id number] 2.16840.1.631194.3.579.2. 462 Unknown [id number] 2.16840.1.654053.3.579.2. 462 Unknown [id number] 2.16840.1.332926.3.579.2. 462 Unknown [id number] 2.16840.1.687261.3.579.2. 462 Unknown [id number] 2.16840.1.569472.3.579.2. 462 Unknown [id number] 2.16840.1.223110.3.579.2. 462 Unknown [id number] 2.16.840.1.578931.3.579.2. 462 Unknown [id number] 2.16840.1.795688.3.579.2. 462 Unknown [id number] 2.16.840.1.149814.3.579.2. 462 Unknown [id number] 2.16.840.1.064836.3.579.2. 462 Social History Date Type Detail Facility Start: 02-20-2012 End: 08-20-2018 Tobacco smoking status [facility] Never smoker [facility] Start: 1990 Sex Assigned At Not on file [facility] Start: 07-31-2018 End: 05-12-2025 Tobacco smoking status [facility] Former smoker [facility] Start: 10-01-2009 End: 10-01-2010 History of tobacco use Current smoker [facility] Start: 10-01-2009 End: 10-01-2010 History of tobacco use Cigarette Smoker [facility] Start: 07-31-2018 End: 01-12-2024 Cigarettes smoked current (pack per day) - Reported [facility] Start: 12-09-2013 Alcohol Comment 1-2 times per week, up to 2 glasses of wine at a time [facility] Start: 07-29-2019 End: 01-12-2024 Alcohol intake Current drinker of alcohol (finding) [facility] Start: 02-20-2012 End: 08-23-2020 Tobacco use and exposure Never used [facility] Start: 06-05-2024 End: 10-02-2024 Exposure to SARS-CoV-2 (event) Not sure [facility] Exposure to SARS-CoV -2 (event) Yes [facility] Start: 07-31-2018 End: 01-12-2024 Alcohol intake Yes [facility] Start: 05-03-2021 End: 05-01-2023 Alcohol intake Ex-drinker (finding) [facility] Start: 12-09-2013 Alcohol Comment 1-2 times per week, up to 2 glasses of wine at a time [facility] Start: 10-21-2020 [facility] Start: 08-26-2022 End: 09-27-2022 Exposure to SARS-CoV-2 (event) Unable to assess [facility] Start: 11-04-2023 Tobacco smoking stat us NHIS Unknown if ever smoked [facility] Start: 1990 Sex Assigned At Female [facility] Start: 02-20-2012 Alcohol Comment occassional [facility] Depression Score 10 [facility] Gender identity Identifies as fe male gender (finding) [facility] Goals Date Patient Goal Desired Activity /State Personal health goal Personal health goal Comment on above: Formatting of this n ote might be different from the original. Goal weight 150 pounds Comment on above: Goal weight 150 poun ds Formatting of this n ote might be different from the original. Goal weight 150 pounds Functional Status Date Assessment Result Facility 05-12-2025 Functional status Activity Abili ty Bedrest;Post Op [facility] Work Phone: Mental Status Date Assessment Result Facility 11-10-2024 Cognitive function Voice/Name [facility] Work Phone: Clinical Notes 05-17-2021 to 05-15-2025 Note Date & Type Note Facility 05-15-2025 Progress note [facility] 05-15-2025 Discharge summary Note Date/Time May 15, 2025 12:14pm [facility] Medical Records Department [address] [place] [address] Discharge Summary 05/15/25 0842 MR#: [id number] Acct: [id number] Name: BARBY CABALLERO Rep #:[id number] : 1990 34 From: Marinaa Jonas CNM PCP: Dr. Steffen Eisenberg MD Status:ADM IN Location: [id number] Providers Date of Admission: 05/12/25 Primary Care Physician: Dr. Steffen Eisenberg MD Reason For Visit: C SECTION/DELIVERED C SECTION Diagnosis Discharge Diagnosis (1) S/P : Status: Acute Code(s): Z98.891 - History of uterine scar from previous surgery (2) GBS (group B Streptococcus carrier), +RV culture, currently : Status: Acute Code(s): O99.820 - Streptococcus B carrier state complicating (3) Conceived by in vitro fertilization: Status: Acute Code(s): Z78.9 - Other specified health status (4) Marijuana use: Status: Acute Code(s): F12.90 - Cannabis use, unspecified, uncomplicated (5) Rh negative status during : Status: Acute Code(s): O26.899 - Other specified related conditions, unspecified trimester; Z67.91 - Unspecified blood type, Rh negative (6) Sleep apnea: Status: Acute Code(s): G47.30 - Sleep apnea, unspecified (7) Obesity affecting : Status: Acute Code(s): O99.210 - Obesity complicating , unspecified trimester (8) AMA (advanced maternal age) multigravida 35+: Status: Acute Code(s): O09.529 - Supervision of elderly multigravida, unspecified trimester Plan s/p LTCS PPD # 3 1. routine post care 2. breast feeding- support given 3. rh neg- rhogam 4. rubella immune 5. d/c home today Medications at Discharge Home Medications escitalopram oxalate 10 mg tablet (Lexapro) 10 mg PO DAILY anxiety/depression #30 tabs 07/20/24 docosahexaenoic acid 200 mg capsule ( DHA) 200 mg PO DAILY #90caps 07/28/24 levothyroxine 25 mcg tablet (Synthroid) 25 mcg PO QDAY hypothyroidism #90 tabs 10/14/24 famotidine 40 mg tablet (Pepcid) 40 mg PO DAILY indigestion #30 tabs 01/11/25 breast pump #1 ea 01/29/25 aspirin 81 mg tablet 81 mg PO DAILY 04/19/25 magnesium 200 mg tablet 200 mg PO DAILY muscle spasm 04/19/25 ibuprofen 800 mg tablet 800 mg PO Q8H PRN pain #30 tabs 05/12/25 oxycodone-acetaminophen 5 mg-325 mg tablet (Percocet) 1 tab PO Q4H PRN pain 7 days #20 tabs 05/12/25 Hospital Course Operations section Summary of Care Provided Hospital Course: at 39 weeks for repeat c/s, had x1 episode of vasovagal response without further dizziness/lightheadness/sob. vss. routine pp course. Weight / BMI Weight Weight: 266 lb 12.149 oz Body Mass Index (BMI) 48.7 ABG / Lab / Microbiology Data 05/13/25 17:35 D/C Instructions May resume sexual activity in: 4-6 weeks Weight Bearing Status: Full weight bearing Call your doctor if your incision/area has: Continuous Slow Oozing, Sudden Increased Bleeding, Increased Pain/ Swelling, Increased Redness and Foul Smelling Discharge Call your doctor if you observe: Fever of 101 or Higher and Using more than 1 pad per hour Suture Line Care: Avoid Pulling/Pushing and Avoid Pinching/Bending Cleanse incision/area with: Soap & Water and Keep Dressing Clean & Dry DC O2, CPAP, BIPAP Needs Home O2 Discharge instructions: No DC home with Oxygen: No Please Follow Up With: Edel Bullock DO When: Call [phone] to make an appointment for an incision check in 1-2 weeks. Meaningful Use Info Meaningful Use Meaningful Use Diagnoses (Choose all that apply): None applicable Discharge Plan Admission Admit Date/Time: 05/12/25 05:52 Primary Reason for Your Visit: section Attending Provider: Edel Bullock Primary Care Provider: Steffen Eisenberg Instructions Patient Instructions: After a Delivery (WP) Discharge Orders/Prescriptions Prescriptions: New ibuprofen 800 mg tablet 800 mg PO Q8H PRN (Reason: pain) Qty: 30 0RF oxycodone-acetaminophen [Percocet] 5-325 mg tablet 1 tab PO Q4H PRN (Reason: pain) 7 Days Qty: 20 0RF No Action escitalopram oxalate [Lexapro] 10 mg tablet 10 mg PO DAILY Qty: 30 5RF (DME) breast pump Device See Rx Instructions .ROUTE .MEDSUPPLY Qty: 1 0RF Rx Instructions: As directed aspirin 81 mg tablet 81 mg PO DAILY magnesium 200 mg tablet 200 mg PO DAILY DHA 200 mg capsule 200 mg PO DAILY Qty: 90 4RF levothyroxine [Synthroid] 25 mcg tablet 25 mcg PO QDAY Qty: 90 4RF famotidine [Pepcid] 40 mg tablet 40 mg PO DAILY Qty: 30 5RF Referrals / Follow Up: Steffen Eisenberg MD [Primary Care Provider] - Disposition Disposition (needs filled in before D/C Order can be placed): Home, Self Care 05/15/25 1214 <Electronically signed by Mariana Jonas CNM> Cosigner Signature (if applicable): CC: NU Jonas; Dr. Steffen Eisenberg MD~ Signed [facility] Work Phone: 1(288) 915-459508-16-2025 Discharge summary [facility] Medical Records Department [address] [place] [address] Discharge Summary 05/15/25 0842 MR#: [id number] Acct: [id number] Name: BARBY CABALLERO Rep #:[id number] : 1990 34 From: Mariana Jonas CNM PCP: Dr. Steffen Eisenberg MD Status:ADM IN Location: [id number] Providers Date of Admission: 05/12/25 Primary Care Physician: Dr. Steffen Eisenberg MD Reason For Visit: C SECTION/DELIVERED C SECTION Diagnosis Discharge Diagnosis (1) S/P : Status: Acute Code(s): Z98.891 - History of uterine scar from previous surgery (2) GBS (group B Streptococcus carrier), +RV culture, currently : Status: Acute Code(s): O99.820 - Streptococcus B carrier state complicating (3) Conceived by in vitro fertilization: Status: Acute Code(s): Z78.9 - Other specified health status (4) Marijuana use: Status: Acute Code(s): F12.90 - Cannabis use, unspecified, uncomplicated (5) Rh negative status during : Status: Acute Code(s): O26.899 - Other specified related conditions, unspecified trimester; Z67.91 - Unspecifiedblood type, Rh negative (6) Sleep apnea: Status: Acute Code(s): G47.30 - Sleep apnea, unspecified (7) Obesity affecting : Status: Acute Code(s): O99.210 - Obesity complicating , unspecified trimester (8) AMA (advanced maternal age) multigravida 35+: Status: Acute Code(s): O09.529 - Supervision of elderly multigravida, unspecified trimester Plan s/p LTCS PPD # 3 1. routine post care 2. breast feeding- support given 3. rh neg- rhogam 4. rubella immune 5. d/c home today Medications at Discharge Home Medications escitalopram oxalate 10 mg tablet (Lexapro) 10 mg PO DAILY anxiety/depression #30 tabs 07/20/24 docosahexaenoic acid 200 mg capsule ( DHA) 200 mg PO DAILY #90caps 07/28/24 levothyroxine 25 mcg tablet (Synthroid) 25 mcg PO QDAY hypothyroidism #90 tabs 10/14/24 famotidine 40 mg tablet (Pepcid) 40 mg PO DAILY indigestion #30 tabs 01/11/25 breast pump #1 ea 01/29/25 aspirin 81 mg tablet 81 mg PO DAILY 04/19/25 magnesium 200 mg tablet 200 mg PO DAILY muscle spasm 04/19/25 ibuprofen 800 mg tablet 800 mg PO Q8H PRN pain #30 tabs 05/12/25 oxycodone-acetaminophen 5 mg-325 mg tablet (Percocet) 1 tab PO Q4H PRN pain 7 days #20 tabs 05/12/25 Hospital Course Operations section Summary of Care Provided Hospital Course: at 39 weeks for repeat c/s, had x1 episode of vasovagal response without further dizziness/lightheadness/sob. vss. routine pp course. Weight / BMI Weight Weight: 266 lb 12.149 oz Body Mass Index (BMI) 48.7 ABG / Lab / Microbiology Data 05/13/25 17:35 D/C Instructions May resume sexual activity in: 4-6 weeks Weight Bearing Status: Full weight bearing Call your doctor if your incision/area has: Continuous Slow Oozing, Sudden Increased Bleeding, Increased Pain/ Swelling, Increased Redness and Foul Smelling Discharge Call your doctor if you observe: Fever of 101 or Higher and Using more than 1 pad per hour Suture Line Care: Avoid Pulling/Pushing and Avoid Pinching/Bending Cleanse incision/area with: Soap & Water and Keep Dressing Clean & Dry DC O2, CPAP, BIPAP Needs Home O2 Discharge instructions: No DC home with Oxygen: No Please Follow Up With: Edel Bullock DO When: Call [phone] to make an appointment for an incision check in 1-2 weeks. Meaningful Use Info Meaningful Use Meaningful Use Diagnoses (Choose all that apply): None applicable Discharge Plan Admission Admit Date/Time: 05/12/25 05:52 Primary Reason for Your Visit: section Attending Provider: Edel Bullock Primary Care Provider: Steffen Eisenberg Instructions Patient Instructions: After a Delivery (WP) Discharge Orders/Prescriptions Prescriptions: New ibuprofen 800 mg tablet 800 mg PO Q8H PRN (Reason: pain) Qty: 30 0RF oxycodone-acetaminophen [Percocet] 5-325 mg tablet 1 tab PO Q4H PRN (Reason: pain) 7 Days Qty: 20 0RF No Action escitalopram oxalate [Lexapro] 10 mg tablet 10 mg PO DAILY Qty: 30 5RF (DME) breast pump Device See Rx Instructions .ROUTE .MEDSUPPLY Qty: 1 0RF Rx Instructions: As directed aspirin 81 mg tablet 81 mg PO DAILY magnesium 200 mg tablet 200 mg PO DAILY DHA 200 mg capsule 200 mg PO DAILY Qty: 90 4RF levothyroxine [Synthroid] 25 mcg tablet 25 mcg PO QDAY Qty: 90 4RF famotidine [Pepcid] 40 mg tablet 40 mg PO DAILY Qty: 30 5RF Referrals / Follow Up: Steffen Eisenberg MD [Primary Care Provider] - Disposition Disposition (needs filled in before D/C Order can be placed): Home, Self Care 05/15/25 1214 Cosigner Signature (if applicable): CC: NU Jonas; Dr. Steffen Eisenberg MD~ Signed [facility]08-16-2025 Progress note Author Mariana Jonas [facility] Note Date/Time May 15, 2025 8: 42am [facility] Medical Records Department [address] [place] [address] Progress Note - OBGYN 05/15/25 0840 MR#: [id number] Acct: [id number] Name: BARBY CABALLERO Rep #:[id number] : 1990 34 From: Mariana Jonas CNM PCP: Dr. Steffen Eisenberg MD Status:ADM IN Location: [id number] Subjective Subjective Patient doing well without complaints. Tolerating PO. Ambulating and voiding without difficulty. Feeding well. Denies chest pain, shortness of breath, calf pain/swelling, fevers, chills, lightheadedness. Objective Data Objective Data Vital Signs: Vital Signs Temp Pulse Resp BP Pulse Ox O2 Del Method 97.0 F L 79 16 112/57 L 99 Room Air 05/15/25 02:03 05/15/25 02:03 05/15/25 02:03 05/15/25 02:03 05/15/25 02:03 05/15/25 02:03 Oxygen Delivery Method Room Air Weight: 266 lb 12.149 oz Body Mass Index (BMI) 48.7 Intake & Output: Intake and Output for Last 24 Hours 05/13/25 05/14/25 05/15/25 23:59 23:59 23:59 Intake Total 1250 / 1250 Output Total 500 / 500 Balance 750 / 750 Lab / Micro Data 05/13/25 17:35 Physical Exam Const alert, oriented x3 and no apparent distress HEENT Head and Scalp: atraumatic Resp normal respiratory effort GI soft to palpation and non-tender Inspection: incision intact, healing well and drainage (none) Bimanual Exam - Vag & Uterus: uterus non-tender Uterus Palpation: uterus fundus firm (below Umbilicus) Assessment & Plan (1) S/P : (2) GBS (group B Streptococcus carrier), +RV culture, currently : COMMENT: treat in labor (3) Conceived by in vitro fertilization: COMMENT: growth and NSTs at 36 weeks. deliver by 39. Transferred male embryo - embryo tested (4) Marijuana use: COMMENT: Last use: May 2024; Pt informed of random tox screens (5) Rh negative status during : COMMENT: B-, Needs Rhogam @ 28 weeks (6) Sleep apnea: (7) Obesity affecting : COMMENT: BMI 47.5; twice weekly BPPs at 34 weeks-HgBA1C ordered (8) AMA (advanced maternal age) multigravida 35+: PLAN: Plan s/p LTCS PPD # 3 1. routine post care 2. breast feeding- support given 3. rh neg- rhogam 4. rubella immune 5. d/c home today 05/15/25 0842 <Electronically signed by Mariana Jonas CNM> Cosigner Signature (if applicable): CC: ~ Signed [facility] Work Phone: 1(243) 576-586108-16-2025 [facility]08-16-2025 Progress note [facility] Medical Records Department [address] [place] [address] Progress Note - OBGYN 05/15/25 0840 MR#: [id number] Acct: [id number] Name: BARBY CABALLERO Rep #:[id number] : 1990 34 From: Mariana Jonas CNM PCP: Dr. Steffen Eisenberg MD Status:ADM IN Location: IX881-4 Subjective Subjective Patient doing well without complaints. Tolerating PO. Ambulating and voiding without difficulty. Feeding well. Denies chest pain, shortness of breath, calf pain/swelling, fevers, chills, lightheadedness. Objective Data Objective Data Vital Signs: Vital Signs Temp Pulse Resp BP Pulse Ox O2 Del Method 97.0 F L 79 16 112/57 L 99 Room Air 05/15/25 02:03 05/15/25 02:03 05/15/25 02:03 05/15/25 02:03 05/15/25 02:03 05/15/25 02:03 Oxygen Delivery Method Room Air Weight: 266 lb 12.149 oz Body Mass Index (BMI) 48.7 Intake & Output: Intake and Output for Last 24 Hours 05/13/25 05/14/25 05/15/25 23:59 23:59 23:59 Intake Total 1250 / 1250 Output Total 500 / 500 Balance 750 / 750 Lab / Micro Data 05/13/25 17:35 Physical Exam Const alert, oriented x3 and no apparent distress HEENT Head and Scalp: atraumatic Resp normal respiratory effort GI soft to palpation and non-tender Inspection: incision intact, healing well and drainage (none) Bimanual Exam - Vag & Uterus: uterus non-tender Uterus Palpation: uterus fundus firm (below Umbilicus) Assessment & Plan (1) S/P : (2) GBS (group B Streptococcus carrier), +RV culture, currently : COMMENT: treat in labor (3) Conceived by in vitro fertilization: COMMENT: growth and NSTs at 36 weeks. deliver by 39. Transferred male embryo - embryo tested (4) Marijuana use: COMMENT: Last use: May 2024; Pt informed of random tox screens (5) Rh negative status during : COMMENT: B-, Needs Rhogam @ 28 weeks (6) Sleep apnea: (7) Obesity affecting : COMMENT: BMI 47.5; twice weekly BPPs at 34 weeks-HgBA1C ordered (8) AMA (advanced maternal age) multigravida 35+: PLAN: Plan s/p LTCS PPD # 3 1. routine post care 2. breast feeding- support given 3. rh neg- rhogam 4. rubella immune 5. d/c home today 05/15/25 0842 Cosigner Signature (if applicable): CC: ~ Signed [facility]08-15-2025 Progress note Author Mariana Jonas [facility] Note Date/Time May 14, 2025 8: 30am [facility] Medical Records Department [address] [place] [address] Progress Note - OBGYN 05/14/2528 MR#: [id number] Acct: [id number] Name: BARBY CABALLERO Rep #:[id number] : 1990 34 From: Mariana Jonas CNM PCP: Dr. Steffen Eisenberg MD Status:ADM IN Location: [id number] Subjective Subjective Patient doing well without complaints. Tolerating PO. Ambulating and voiding without difficulty. Feeding well. Denies chest pain, shortness of breath, calf pain/swelling, fevers, chills, lightheadedness. Objective Data Objective Data Vital Signs: Vital Signs Temp Pulse Resp BP Pulse Ox O2 Del Method 97.6 F L 84 16 125/67 H 99 Room Air 05/14/25 07:42 05/14/25 07:42 05/14/25 07:42 05/14/25 07:42 05/14/25 07:42 05/14/25 07:42 Oxygen Delivery Method Room Air Weight: 266 lb 12.149 oz Body Mass Index (BMI) 48.7 Intake & Output: Intake and Output for Last 24 Hours 05/12/25 05/13/25 05/14/25 23:59 23:59 23:59 Intake Total 1410 / 1410 1250 / 1250 Output Total 700 / 700 500 / 500 Balance 710 / 710 750 / 750 Lab / Micro Data 05/13/25 17:35 Labs: Laboratory Results - last 24 hr 05/12/25 : Roxana Agudelo Hgb POSITIVE H 05/13/25 17:35: WBC 16.9 H, RBC 3.88 L, Hgb 11.5 L, Hct 33.9 L, MCV 87.4, MCH 29.6, MCHC 33.9, RDW Std Deviation 43.1, RDW Coeff of Tanner 13.6, Plt Count 299, MPV 9.7, Immature Gran % (Auto) 1.000 H, Neut % (Auto) 74.0 H, Lymph % (Auto) 17.1 L, [place] % (Auto) 6.6, Eos % (Auto) 0.9, Baso % (Auto) 0.4, Absolute Neuts (auto) 12.5 H, Absolute Lymphs (auto) 2.88, Nucleated RBC % 0, PT 12.8, INR 1.0,APTT 22.8 L, Fibrinogen 422 Physical Exam Const alert, oriented x3 and no apparent distress HEENT Head and Scalp: atraumatic Resp normal respiratory effort GI soft to palpation and non-tender Inspection: incision intact, healing well and drainage (none) Bimanual Exam - Vag & Uterus: uterus non-tender Uterus Palpation: uterus fundus firm (below Umbilicus) Assessment & Plan (1) S/P : (2) AMA (advanced maternal age) multigravida 35+: (3) GBS (group B Streptococcus carrier), +RV culture, currently : COMMENT: treat in labor PLAN: Plan s/p LTCS PPD # 2 s/p large clots yesterday, no further excessive bleeding. VSS 1. routine post care 2. breast feeding- support given 3. rh negative 4. rubella immune 05/14/25 0830 <Electronically signed by Mariana Jonas CNM> Cosigner Signature (if applicable): CC: ~ Signed [facility] Work Phone: 1(676) 424-297308-15-2025 Progress note [facility] Medical Records Department [address] [place] [address] Progress Note - OBGYN 05/14/25 08 MR#: [id number] Acct: [id number] Name: BARBY CABALLERO Rep #:[id number] : 1990 34 From: Mariana Jonas CNM PCP: Dr. Steffen Eisenberg MD Status:ADM IN Location: XV152-6 Subjective Subjective Patient doing well without complaints. Tolerating PO. Ambulating and voiding without difficulty. Feeding well. Denies chest pain, shortness of breath, calf pain/swelling, fevers, chills, lightheadedness. Objective Data Objective Data Vital Signs: Vital Signs Temp Pulse Resp BP Pulse Ox O2 Del Method 97.6 F L 84 16 125/67 H 99 Room Air 05/14/25 07:42 05/14/25 07:42 05/14/25 07:42 05/14/25 07:42 05/14/25 07:42 05/14/25 07:42 Oxygen Delivery Method Room Air Weight: 266 lb 12.149 oz Body Mass Index (BMI) 48.7 Intake & Output: Intake and Output for Last 24 Hours 05/12/25 05/13/25 05/14/25 23:59 23:59 23:59 Intake Total 1410 / 1410 1250 / 1250 Output Total 700 / 700 500 / 500 Balance 710 / 710 750 / 750 Lab / Micro Data 05/13/25 17:35 Labs: Laboratory Results - last 24 hr 05/12/25 : Roxana Agudelo Hgb POSITIVE H 05/13/25 17:35: WBC 16.9 H, RBC 3.88 L, Hgb 11.5 L, Hct 33.9 L, MCV 87.4, MCH 29.6, MCHC 33.9, RDW Std Deviation 43.1, RDW Coeff of Tanner 13.6, Plt Count 299, MPV 9.7, Immature Gran % (Auto) 1.000 H, Neut % (Auto) 74.0 H, Lymph % (Auto) 17.1 L, [place] % (Auto) 6.6, Eos % (Auto) 0.9, Baso % (Auto) 0.4, Absolute Neuts (auto) 12.5 H, Absolute Lymphs (auto) 2.88, Nucleated RBC % 0, PT 12.8, INR 1.0,APTT 22.8 L, Fibrinogen 422 Physical Exam Const alert, oriented x3 and no apparent distress HEENT Head and Scalp: atraumatic Resp normal respiratory effort GI soft to palpation and non-tender Inspection: incision intact, healing well and drainage (none) Bimanual Exam - Vag & Uterus: uterus non-tender Uterus Palpation: uterus fundus firm (below Umbilicus) Assessment & Plan (1) S/P : (2) AMA (advanced maternal age) multigravida 35+: (3) GBS (group B Streptococcus carrier), +RV culture, currently : COMMENT: treat in labor PLAN: Plan s/p LTCS PPD # 2 s/p large clots yesterday, no further excessive bleeding. VSS 1. routine post care 2. breast feeding- support given 3. rh negative 4. rubella immune 05/14/25 0830 Cosigner Signature (if applicable): CC: ~ Signed [facility]08-14-2025 Progress note Author Apple Lao [facility] Note Date/Time May 15, 2025 2: 25pm [facility] Medical Records Department [address] [place] [address] Progress Note - OBGYN 05/13/251811 MR#: [id number] Acct: [id number] Name: BARBY CABALLERO Rep #:[id number] : 1990 34 From: Appel fuentes MD PCP: Dr. Steffen Eisenberg MD Status:ADM IN Location: [place] [address] Subjective Subjective LATE ENTRY- patient seent at 8:50 this am Patient doing well without complaints. Tolerating PO. Ambulating and voiding without difficulty. Feeding well. Denies chest pain, shortness of breath, calf pain/swelling, fevers, chills, lightheadedness. Objective Data Objective Data Vital Signs: Vital Signs Temp Pulse Resp BP Pulse Ox O2 Del Method 98.1 F 89 16 102/63 100 Room Air 05/13/25 14:45 05/13/25 14:45 05/13/25 14:45 05/13/25 14:45 05/13/25 14:45 05/13/25 14:45 Oxygen Delivery Method Room Air Weight: 266 lb 12.149 oz Body Mass Index (BMI) 48.7 Intake & Output: Intake and Output for Last 24 Hours 05/11/25 05/12/25 05/13/25 23:59 23:59 23:59 Intake Total 1410 / 1410 Output Total 700 / 700 500 / 500 Balance 710 / 710 -500 / -500 Lab / Micro Data 05/13/25 17:35 Labs: Laboratory Results - last 24 hr 05/12/25 : LayaRadha Jammie Hgb POSITIVE H 05/13/25 04:42: WBC 15.0 H, RBC 3.88 L, Hgb 11.4 L, Hct 33.8 L, MCV 87.1, MCH 29.4, MCHC 33.7, RDW Std Deviation 43.1, RDW Coeff of Tanner 13.6, Plt Count 228, MPV 9.6 05/13/25 17:35: WBC 16.9 H, RBC 3.88 L, Hgb 11.5 L, Hct 33.9 L, MCV 87.4, MCH 29.6, MCHC 33.9, RDW Std Deviation 43.1, RDW Coeff of Tanner 13.6, Plt Count 299, MPV 9.7, Immature Gran % (Auto) 1.000 H, Neut % (Auto) 74.0 H, Lymph % (Auto) 17.1 L, [place] % (Auto) 6.6, Eos % (Auto) 0.9, Baso % (Auto) 0.4, Absolute Neuts (auto) 12.5 H, Absolute Lymphs (auto) 2.88, Nucleated RBC % 0 ROS Constitutional Constitutional: Reports systems reviewed and no addt'l complaints, except as documented Cardiovascular Cardiovascular: Reports systems reviewed and no addt'l complaints, except as documented Respiratory/Chest Respiratory/Chest: Reports systems reviewed and no addt'l complaints, except as documented Gastrointestinal Gastrointestinal: Reports systems reviewed and no addt'l complaints, except as documented Physical Exam Const alert, oriented x3 and no apparent distress HEENT Head and Scalp: atraumatic Resp normal respiratory effort GI soft to palpation and non-tender Inspection: incision intact, healing well and drainage (none) Bimanual Exam - Vag & Uterus: uterus non-tender Uterus Palpation: uterus fundus firm (below Umbilicus) Assessment & Plan (1) S/P : PLAN: Plan s/p LTCS PPD # 1 1. routine post care 2. breast feeding- support given 3. rh neg rhogam given 4. rubella immune 05/13/251811 <Electronically signed by Apple Lao MD> Cosigner Signature (if applicable): CC: ~ Signed [facility] Work Phone: 1(573) 600-313708-14-2025 Progress note Author Apple Lao [facility] Note Date/Time May 13, 2025 6: 08pm [facility] Medical Records Department [address] [place] [address] Progress Note 05/13/251806 MR#: [id number] Acct: [id number] Name: BARBY CABALLEROE Rep #:[id number] : 1990 34 From: Apple fuentes MD PCP: Dr. Steffen Eisenberg MD Status:ADM IN Location: [place] [address] Progress Note Patient evaluated due to passing large clot and near syncopal episode in the bathroom. Initial borderline hypotension and passed a large clot of unknown size due to it being in the toilet. Patient feeling very dizzy and lightheaded vital signs 130/97 heart rate in the low 100s. Stat labs sent and hemoglobin stable once patient was evaluated in the bed some clots seen within the uterine cavity vaginal evacuation performed and small clots removed bleeding minimal vital signs stable with a MAP of 72 and heart rate in the 80s. Patient feeling better. IV fluids given Methergine and Pitocin given. Will continue to monitorwith expectant management at this time suspect vasovagal episode due to passing large clot. 05/13/251807 <Electronically signed by Apple Lao MD> Apple Lao MD Cosigner Signature (if applicable): CC: ~ Signed [facility] Work Phone: 1(428) 563-811608-14-2025 Progress note [facility] Medical Records Department [address] [place] [address] Progress Note 05/13/251806 MR#: [id number] Acct: [id number] Name: DONGKiranBARBY Rep #:[id number] : 1990 34 From: Apple fuentes MD PCP: Dr. Steffen Eisenberg MD Status:ADM IN [facility] Patient evaluated due to passing large clot and near syncopal episode in the bathroom. Initial borderline hypotension and passed a large clot of unknown size due to it being in the toilet. Patient feeling very dizzy and lightheaded vital signs 130/97 heart rate in the low 100s. Stat labs sent and hemoglobin stable once patient was evaluated in the bed some clots seen within the uterine cavity vaginal evacuation performed and small clots removed bleeding minimal vital signs stable with a MAP of 72 and heart rate in the 80s. Patient feeling better. IV fluids given Methergine and Pitocin given. Will continue to monitorwith expectant management at this time suspect vasovagal episode due to passing large clot. 05/13/25 1808 Apple Lao MD Cosigner Signature (if applicable): CC: ~ Signed [facility]08-13-2025 Procedure note [facility] Medical Records Department [address] [place] [address] Operative Report 05/12/25 0920 MR#: [id number] Acct: [id number] Name: BARBY CABALLERO Rep #:[id number] : 1990 34 From: Edel Bullock DO PCP: Dr. Steffen Eisenberg MD Status:ADM IN [facility] Assessment & Plan (1) GBS (group B Streptococcus carrier), +RV culture, currently : COMMENT: treat in labor (2) Itching: (3) Abnormal glucose affecting : COMMENT: passed 3 hour gtt (4) H/O section: COMMENT: [id number]. desires repeat C/S: RLTCS 05/12/25 JV. (5) AMA (advanced maternal age) multigravida 35+: (6) Conceived by in vitro fertilization: COMMENT: growth and NSTs at 36 weeks. deliver by 39. Transferred male embryo - embryo tested (7) Family history of genetic disorder: COMMENT: FOB w/ Shaw Muscular Dystrophy (X Chromosome linked) FOB adopted with limited medical history (8) Obesity affecting : COMMENT: BMI 47.5; twice weekly BPPs at 34 weeks-HgBA1C ordered (9) Rh negative status during : COMMENT: B-, Needs Rhogam @ 28 weeks (10) Supervision of high-risk : COMMENT: PRR, , ANTONIO 05/19/25,boy PC: Larry, : [place] (11) : QUALIFIERS: Weeks of gestation: 38 weeks Qualified Code(s): Z3A.38 - 38 weeks gestation of COMMENT: Discussed genetic/carrier testing - declines d/t embryo tested prior to transfer, nl anatomy. echo normal. (12) Sleep apnea: (13) Infertility associated with anovulation: (14) GERD (gastroesophageal reflux disease): QUALIFIERS: Esophagitis presence: without esophagitis Qualified Code(s): K21.9 - Gastro-esophageal reflux disease without esophagitis (15) Depression with anxiety: (16) PCOS (polycystic ovarian syndrome): Maternal Data Information ANTONIO Calculator Estimated Delivery Date Method Current WG Current Estimate 05/19/25 Conception 39w 0d Gestational age: 39 weeks Operative Report (OB) Details Procedure Type: low transverse Date of Procedure: 05/12/25 Procedure Start Time: 08:09 Procedure Stop Time: 08:48 Pre-Operative Diagnosis: Repeat Elective Post-Operative Diagnosis: Same as Pre-operative diagnosis Classification: Scheduled Type of Anesthesia: Spinal Special Medications: exparel 20 ml + 30 ml of bupivacaine Antibiotic Given: Ancef 3 grams IV x1 Drain: Disla to straight drain Estimated Blood Loss: 500cc Findings Description of surgery: The patient is a [34 y/o @ 3 9weeks presented for repeat . Spinal anesthesia was placed without difficulty. Disla catheter was placed. The patient was placed in the dorsal supine position with leftward tilt. Patient was prepped and draped in the normal sterile fashion. Pfannenstiel skin incision was made with the scalpel and carried through to the underlying layer of fascia with thescalpel. Fascia was nicked in the midline and the incision extended laterally. The rectus bellies were dissected off superiorly and inferiorly with out complication both sharply and bluntly. The peritoneum was entered digitally. The incision was stretched and a low transverse uterine incision was made with the scalpel. The 's head was delivered atraumatically followed by the anterior and posterior shoulders without complication the rest of the delivered. The cord was clamped and cut and the infant was handed off to awaiting nurse. The placenta was delivered spontaneously immediately following and was noted to be intact and have a three-vessel cord. The uterus was exteriorized cleared of all clots and debris, and the incision was closed in a double layer closure using #1 Vicryl and #1 Monocryl. The ovaries and fallopian tubes were noted to be within normal limits. The uteruswas returned to the maternal abdomen and gutters were cleared of all clots and debris. The peritoneu m was closed with 3-0 Monocryl in a running fashion. Exparel + bupivicaine 20ml + 30 ml was injected into the fascia and muscle. Fascia was closed with 0 PDS in a running fashion. Subcutaneous tissuewas copiously irrigated and the skin was closed with 3-0 Monocryl in a subcuticular fashion. Mepilex dressing was applied without complication. Patient was taken to recovery in stable condition. It was discussed with the patient that based on the clinical information obtained during this encounter,combined with her history, at this time I would recommend for future deliveries if further pregnancies are desired. Surgical findings: viable male . name undecided. Presentation: Vertex Amniotic Membrane Rupture Type: Artificial Amniotic Fluid Description: Clear Placental Delivery Description: Expressed Placenta Disposition: [facility] Specimen collected: No Cord Vessel Description: 3 Vessels Cord Entanglement: None A gender: Male (1 minute): 8 (5 minute): 9 Delayed Cord Clamping: Yes Transcribing Operators Supervisor operating system programmer: Yes Medical Research Assistant: Mark Jauregui Tasks completed by first officer and flight instructor: Closing and Retracting Additional medical staff assistant?: No Complications Complications: No Multi Select Codes Urinary/Genital Urinary/Genital CPT Codes: 51334 Delivery [facility] 05/12/25 0926 Cosigner Signature (if applicable): CC: Dr. Steffen Eisenberg MD; Dr. Edel Bullock DO~ Signed [facility]08-13-2025 Discharge summary Author Edel Diehl [facility] Note Date/Time May 12, 2025 7: 21am [facility] Medical Records Department [address] [place] [address] Instructions for Home/Discharge Instructions 05/12/25 0719 MR#: [id number] Acct: [id number] Name: BARBY CABALLERO Rep #:[id number] : 1990 34 From: Edel Bullock DO PCP: Dr. Steffen Eisenberg MD Status:ADM IN Discharge Instructions DC O2, CPAP, BIPAP needs Home O2 Discharge instructions: No Dressing / Incision Discharge Activity: May Not Drive (for 2 weeks or while taking narcotic pain medications.), May Shower and May Take a Tub Bath (in 7 days.) May resume sexual activity in: 4-6 weeks Weight Bearing Status: Full weight bearing Lifting Restrictions: 20 pounds Dressing / Incision Call your doctor if your incision/area has: Continuous Slow Oozing, Sudden Increased Bleeding, Increased Pain/ Swelling, Increased Redness and Foul Smelling Discharge Call your doctor if you observe: Fever of 101 or Higher and Using more than 1 pad per hour Suture Line Care: Avoid Pulling/Pushing and Avoid Pinching/Bending Cleanse incision/area with: Soap & Water and Keep Dressing Clean & Dry Follow Up Care Please Follow Up With: Edel Bullock DO When: Call [phone] to make an appointment for an incision check in 1-2 weeks. Test Results: Test results from this visit will be discussed in further detail at your follow- up appointment, if applicable. Discharge Plan Admission Admit Date/Time: 05/12/25 05:52 Primary Reason for Your Visit: section Attending Provider: Edel Bullock Primary Care Provider: Steffen Eisenberg Discharge Orders/Prescriptions Prescriptions: No Action escitalopram oxalate [Lexapro] 10 mg tablet 10 mg PO DAILY Qty: 30 5RF (DME) breast pump Device See Rx Instructions .ROUTE .MEDSUPPLY Qty: 1 0RF Rx Instructions: As directed aspirin 81 mg tablet 81 mg PO DAILY magnesium 200 mg tablet 200 mg PO DAILY DHA 200 mg capsule 200 mg PO DAILY Qty: 90 4RF levothyroxine [Synthroid] 25 mcg tablet 25 mcg PO QDAY Qty: 90 4RF famotidine [Pepcid] 40 mg tablet 40 mg PO DAILY Qty: 30 5RF Referrals / Follow Up: Steffen Eisenberg MD [Primary Care Provider] - Disposition Disposition (needs filled in before D/C Order can be placed): Home, Self Care 05/12/25 0721<Electronically signed by Edel Bullock DO>Edel Bullock DO CC: Dr. Steffen Eisenberg MD ~ Signed [facility] Work Phone: 1(680) 647-968408-13-2025 History and physical note Author Edel Diehl [facility] Note Date/Time May 12, 2025 7: 16am [facility] Medical Records Department [address] [place] [address] H&P Exam - MACHINE FIXER 05/12/25 0714 MR#: [id number] Acct: [id number] Name: BARBY CABALLERO Rep #:[id number] : 1990 34 From: Edel Bullock DO PCP: Dr. Steffen Eisenberg MD Status:ADM IN Location: [address] HPI - General General Date of Admission: 05/12/25 HPI Narrative * BARBY CABALLERO, is a 34 y/o @ 39 weeks 0 days who presents to L&D for a repeat section. Maternal Data Information ANTONIO Calculator Estimated Delivery Date Method Current WG Current Estimate 05/19/25 Conception 39w 0d PFSH PFSH Medical History PCOS (polycystic ovarian syndrome) Infertility Depression with anxiety GERD (gastroesophageal reflux disease) Home Medications ?Medication ?Instructions ?Recorded ?Last Taken ?Type escitalopram oxalate 10 mg tablet 10 mg PO DAILY anxie ty/depression 07/20/24 05/11/25 18:00 Rx (Lexapro) #30 tabs 10 mg docosahexaenoic acid 200 mg 200 mg PO DAILY #90 caps 07/28/24 05/11/25 08:00 Rx capsule ( DHA) 200 mg levothyroxine 25 mcg tablet 25 mcg PO QDAY hypothyroid ism #90 10/14/24 05/12/25 06:00 Rx (Synthroid) tabs 25 mcg famotidine 40 mg tablet (Pepcid) 40 mg PO DAILY indige stion #30 tabs 01/11/25 05/11/25 18:00 Rx 40 mg breast pump #1 ea 05/02/25 Unknown Rx aspirin 81 mg tablet 81 mg PO DAILY 05/10/25 08:00 History 81 mg magnesium 200 mg tablet 200 mg PO DAILY muscle spasm 04/19/25 05/11/25 18:00 History 200 mg Allergy/AdvReac Type Severity Reaction Status Date / Time No Known Allergies Allergy Verified 05/12/25 06:30 Family History Mother Hypertension Grandfather Heart disease Hypertension Diabetes Cancer Macular degeneration Grandmother Macular degeneration Surgical History H/O successful vaginal after , currently H/O section History of surgical procedure S/P cholecystectomy S/P S/P wisdom tooth extraction Social History adopted: No household members: spouse and children housing: house number of children: 1 current occupational status: unemployed current occupation: [employer] current occupational exposures/hazards: No 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) pets and animals: cat(s) history of recent travel: Yes ([place] for IVF) out of state: Yes sexually [...] physical activity do you participate in: none landon/faith: None seatbelt use: always do you feel safe at home: Yes additional social history: : 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) History 2 2 Elective abortions Hx Para 1 Spontaneous abortions Hx # Term Pregnancies 1 Ectopic pregnancies Hx # Pregnancies Multiple births # of living children 1 Past Pregnancies Del. Date Name GA/Weeks Outcome Route Bth Weight Gen Labor Lgth Anesthesia Del Locatn Provider FOB 07/18/21 Larry 40 live - full term 7lbs 7oz Male [facility] [place] Delivery Date: 07/18/21 Last Updated by: Aida Shields RN Induce d/t failure to progress naturally .. Slow progression of labor w/ decels .. Failed vacuum delivery into emergency csec Visit Details Expected Delivery Route/Plan repeat c/s Plans Covid status: [] Flu vaccine: [] Tdap vaccine: [] Rhogam: [] LARC form signed: [] Problem list reviewed and updated with the most current plan of care details and appropriate orders placed. Relevant counseling for the gestational age provided. Continue routine care and follow up unless otherwise noted in visit notes/problem list details OB Flowsheet Initial Weight: 264 lb Date -?-?-?-?-?-?-?-?-?-?-?-?- EGA [...] oz (+3 lb 4 oz) 131/82 Negative -?-?-?--?-?-?-?-?-?-?-?-?- Negative 142 38 -?-?-?-?-?-?-?-?-?-?-?-?- JV- needs weekly [...] no lof, vaginal bleeding, or dec fm. 05/06/25 -?-?-?-?-?-?-?-?-?-?-?-?- 38w 1d 271 lb 3 oz (+7 lb 3 oz) 125/84 Negative -?-?-?-?-?-?-?-?-?-?-?-?- Negative 160 -?-?-?-?-?-?-?-?-?-?-?-?- JV- no lof, vagi nal bleeding, or dec fm. NST reactive but initially was in the 170's to 180's transiently. she states that she just drank and large coke and rowan's ROS Constitutional Constitutional: Denies change in weight, fatigue, fever(s), headache(s), poor appetite or weakness Eyes Eyes: Denies blurry vision, change in vision, seeing flashes or spots in vision ENT HEENT: Denies dizziness, headache(s), loss taste/smell or sore throat Cardiovascular Cardiovascular: Denies chest pain, dizziness, dyspnea, irregular heart rhythm, leg edema, palpitations, rapid heart rate or vomiting Respiratory/Chest Respiratory/Chest: Denies chest tightness, cough, dyspnea or breast pain Gastrointestinal Gastrointestinal: Denies abdominal pain, anorexia, constipation, cramping, diarrhea, hemorrhoids, vomiting or weight changes Genitourinary Genitourinary: Denies dysuria, flank pain, genital lesions, genital pain, urinary frequency or urinary urgency Musculoskeletal Musculoskeletal: Denies back pain, difficulty walking, joint pain, limited range of motion, muscle cramps or numbness Integumentary Integumentary: Denies lesions or unusual bruising Neurologic Neurologic: Denies abnormal movements, abnormal speech, dizziness, numbness, seizure-like activity or syncope Psychiatric Psychiatric: Denies anxiety, behavioral changes, change in appetite, change in libido, cognitive impairment, confusion, depression, difficulty concentrating, hallucinations or suicidal thoughts Endocrine Endocrinology: Denies excessive sweating, polydipsia or polyuria Hematologic/Lymphatic Hematologic/Lymphatic: Denies easy bleeding, easy bruising or lymphadenopathy Allergic/Immunologic Allergic/Immunologic: Denies itchy eyes, lip swelling, seasonal rhinorrhea, rhinitis, throat swelling, tongue swelling, eczemia, wheezing or asthma Vital Signs Vital Signs Vital Signs: 05/12/25 06:07 05/12/25 06:15 05/12/25 06:15 Temperature Temperature Source Oral Pulse Rate Respiratory Rate 16 Blood Pressure 89/52 L Blood Pressure Mean BP Systolic 89 BP Diastolic 52 Blood Pressure Source Blood Pressure Position Blood Pressure Location Pulse Ox Oxygen Delivery Method 05/12/25 06:15 05/12/25 06:15 05/12/25 06:15 Temperature Temperature Source Pulse Rate 70 Respiratory Rate 16 Blood Pressure Blood Pressure Mean BP Systolic BP Diastolic Blood Pressure Source Blood Pressure Position Blood Pressure Location Pulse Ox 99 Oxygen Delivery Method 05/12/25 06:15 05/12/25 06:35 Temperature 98.4 F 98.4 F Temperature Source Temporal Pulse Rate 70 Respiratory Rate 16 Blood Pressure 89/52 L Blood Pressure Mean 64 BP Systolic BP Diastolic Blood Pressure Source Monitor Blood Pressure Position Semi-Fowlers Blood Pressure Location Right Arm Pulse Ox 99 Oxygen Delivery Method Room Air Weight Weight: 266 lb 12.149 oz Body Mass Index (BMI) 48.7 Physical Exam Const alert, oriented x3, no apparent distress and healthy appearing General Appearance: cooperative; Negative for anxious HEENT normocephalic Face and Sinus: normal facial exam Eyes EOMs intact bilaterally and no scleral icterus General Eye: normal appearance of both eyes Neck full ROM and supple Lymph Lymphatic: no lymphadenopathy noted Chest Chest: symmetrical chest wall rise Resp normal respiratory effort Effort and Inspection: able to speak in complete sentences Cardio regular rate GI soft to palpation and non-tender Inspection: gravid Palpation: soft; Negative for tender Back/Spine no CVA tenderness Extremity normal to inspection, full ROM and no clubbing, cyanosis or edema General Extremity: Negative for calf tenderness or edema Skin Lesions: no lesions Rashes: no rashes Psych mental status grossly normal Labs Labs Labs: Blood Type B NEGATIVE Antibody Screen NEGATIVE Hct 36.4 % (37-47) L Hgb 12.5 g/dL (12.0-15.0) Pap Smear Negative Syphilis Total Ab Nonreactive (Nonreactive) VZV IgG Antibody 1347 index (Immune >165) Rubella IgG Antibody Reactive (Nonreactive) Hep Bs Antigen Non-Reactive (Nonreactive) Hepatitis C Antibody Non-Reactive (Nonreactive) Chlamydia DNA (CONCHITA) Negative (Negative) N.gonorrhoeae DNA (CONCHITA) Negative (Negative) HIV 1&2 Antibody Nonreactive (Nonreactive) Glucose 1 Hr 50 gm 172 mg/dL (70-140) H Gest Glucose Tolerance mg/dL Miscellaneous Test COMMENT (.) Assessment & Plan (1) GBS (group B Streptococcus carrier), +RV culture, currently : COMMENT: treat in labor (2) Abnormal glucose affecting : COMMENT: passed 3 hour gtt (3) H/O section: COMMENT: x1, 2020. desires repeat C/S: RLTCS 05/12/25 JV. (4) AMA (advanced maternal age) multigravida 35+: (5) Conceived by in vitro fertilization: COMMENT: growth and NSTs at 36 weeks. deliver by 39. Transferred male embryo - embryo tested (6) Family history of genetic disorder: COMMENT: FOB w/ Shaw Muscular Dystrophy (X Chromosome linked) FOB adopted with limited medical history (7) Marijuana use: COMMENT: Last use: May 2024; Pt informed of random tox screens (8) Obesity affecting : COMMENT: BMI 47.5; twice weekly BPPs at 34 weeks-HgBA1C ordered (9) Rh negative status during : COMMENT: B-, Needs Rhogam @ 28 weeks (10) Supervision of high-risk : COMMENT: PRR, , ANTONIO 05/19/25,boy PC: Larry, : [place] (11) : QUALIFIERS: Weeks of gestation: 38 weeks Qualified Code(s): Z3A.38 - 38 weeks gestation of COMMENT: Discussed genetic/carrier testing - declines d/t embryo tested prior to transfer, nl anatomy. echo normal. (12) Sleep apnea: (13) Infertility associated with anovulation: (14) GERD (gastroesophageal reflux disease): QUALIFIERS: Esophagitis presence: without esophagitis Qualified Code(s): K21.9 - Gastro-esophageal reflux disease without esophagitis (15) Depression with anxiety: (16) PCOS (polycystic ovarian syndrome): PLAN: Plan After discussing the patient's diagnosis and treatment plan options, patient wishes to proceed with surgical management. I have discussed with the patient the risks, benefits, and alternatives of the procedure which include but are not limited to risks of anesthesia, bleeding, infection, possible damage to bowel, bladder, or surrounding vasculature which could lead to additional surgery to evaluate any complications. Patient agrees to procedure and wishes to proceed. ACOG/uptodate references given for additional information regarding procedure. plan for repeat section. due to BMI she will not be a candidate for duramorph. we will perform a tap block with exparel 05/12/25 0716 <Electronically signed by Edel Bullock DO> Cosigner Signature (if applicable): CC: Dr. Steffen Eisenberg MD; Dr. Edel Bullock DO~ Signed [facility] Work Phone: 1(367) 124-565708-13-2025 Discharge summary [facility] Medical Records Department [address] [place] [address] Instructions for Home/Discharge Instructions 05/12/25 0719 MR#: [id number] Acct: [id number] Name: TORRI CABALLEROA EDWINA Rep #:[id number] : 1990 34 From: Edel Bullock DO PCP: Dr. Steffen Eisenberg MD Status:ADM IN Discharge Instructions DC O2, CPAP, BIPAP needs Home O2 Discharge instructions: No Dressing / Incision Discharge Activity: May Not Drive (for 2 weeks or while taking narcotic pain medications.), May Shower and May Take a Tub Bath (in 7 days.) May resume sexual activity in: 4-6 weeks Weight Bearing Status: Full weight bearing Lifting Restrictions: 20 pounds Dressing / Incision Call your doctor if your incision/area has: Continuous Slow Oozing, Sudden Increased Bleeding, Increased Pain/ Swelling, Increased Redness and Foul Smelling Discharge Call your doctor if you observe: Fever of 101 or Higher and Using more than 1 pad per hour Suture Line Care: Avoid Pulling/Pushing and Avoid Pinching/Bending Cleanse incision/area with: Soap & Water and Keep Dressing Clean & Dry Follow Up Care Please Follow Up With: Edel Bullock DO When: Call [phone] to make an appointment for an incision check in 1-2 weeks. Test Results: Test results from this visit will be discussed in further detail at your follow- up appointment, if applicable. Discharge Plan Admission Admit Date/Time: 05/12/25 05:52 Primary Reason for Your Visit: section Attending Provider: Edel Bullock Primary Care Provider: Steffen Eisenberg Discharge Orders/Prescriptions Prescriptions: No Action escitalopram oxalate [Lexapro] 10 mg tablet 10 mg PO DAILY Qty: 30 5RF (DME) breast pump Device See Rx Instructions .ROUTE .MEDSUPPLY Qty: 1 0RF Rx Instructions: As directed aspirin 81 mg tablet 81 mg PO DAILY magnesium 200 mg tablet 200 mg PO DAILY DHA 200 mg capsule 200 mg PO DAILY Qty: 90 4RF levothyroxine [Synthroid] 25 mcg tablet 25 mcg PO QDAY Qty: 90 4RF famotidine [Pepcid] 40 mg tablet 40 mg PO DAILY Qty: 30 5RF Referrals / Follow Up: Steffen Eisenberg MD [Primary Care Provider] - Disposition Disposition (needs filled in before D/C Order can be placed): Home, Self Care 05/12/25 0721Jennifer Twan Diehl DO CC: Dr. Steffen Eisenberg MD ~ Signed 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 Steffen Eisenberg MD Status:ADM IN Location: [id number] HPI - General General Date of Admission: 05/12/25 HPI Narrative * BARBY CABALLERO, is a 34 y/o @ 39 weeks 0 days who presents to L&D for a repeat section. Maternal Data Information ANTONIO Calculator Estimated Delivery Date Method Current WG Current Estimate 05/19/25 Conception 39w 0d PFSH PFSH Medical History PCOS (polycystic ovarian syndrome) Infertility Depression with anxiety GERD (gastroesophageal reflux disease) Home Medications ?Medication ?Instructions ?Recorded ?Last Taken ?Type escitalopram oxalate 10 mg tablet 10 mg PO DAILY anxie ty/depression 07/20/24 05/11/25 18:00 Rx (Lexapro) #30 tabs 10 mg docosahexaenoic acid 200 mg 200 mg PO DAILY #90 caps 07/28/24 05/11/25 08:00 Rx capsule ( DHA) 200 mg levothyroxine 25 mcg tablet 25 mcg PO QDAY hypothyroid ism #90 10/14/24 05/12/25 06:00 Rx (Synthroid) tabs 25 mcg famotidine 40 mg tablet (Pepcid) 40 mg PO DAILY indige stion #30 tabs 01/11/25 05/11/25 18:00 Rx 40 mg breast pump #1 ea 01/29/25 Unknown Rx aspirin 81 mg tablet 81 mg PO DAILY 05/10/25 08:00 History 81 mg magnesium 200 mg tablet 200 mg PO DAILY muscle spasm 04/19/25 05/11/25 18:00 History 200 mg Allergy/AdvReac Type Severity Reaction Status Date / Time No Known Allergies Allergy Verified 05/12/25 06:30 Family History Mother Hypertension Grandfather Heart disease Hypertension Diabetes Cancer Macular degeneration Grandmother Macular degeneration Surgical History H/O successful vaginal after , currently H/O section History of surgical procedure S/P cholecystectomy S/P S/P wisdom tooth extraction Social History (Reviewed 05/12/25 @ 06:33 by Valerie Lopez adopted: No household members: spouse and children housing: house number of children: 1 current occupational status: unemployed current occupation: [employer] current occupational exposures/hazards: No 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 Date Name GA/Weeks Outcome Route Bth Weight Gen Labor Lgth Anesthesia Del Locatn Provider FOB 07/18/21 Larry 40 live - full term 7lbs 7oz Male [facility] [place] Delivery Date: 07/18/21 Last Updated by: Aida Shields RN Induce d/t failure to progress naturally .. Slow progression of labor w/ decels .. Failed vacuum delivery into emergency csec Visit Details Expected Delivery Route/Plan repeat c/s Plans Covid status: [] Flu vaccine: [] Tdap vaccine: [] Rhogam: [] LARC form signed: [] Problem list reviewed and updated with the most current plan of care details and appropriate ordersplaced. Relevant counseling for the gestational age provided. Continue routine care and follow up unless otherwise noted in visit notes/problem list details OB Flowsheet Initial Weight: 264 lb Date -?-?-?-?-?-?-?-?-?-?-?-?- EGA Weight BP Urine Prot -?-?-?-?-?-?-?-?-?-?-?-?- Glucose FHR FuHt Pres Dilation -?-?-?-?-?-?-?-?-?-?-?-?- Effaced St Visit Note 10/09/24 -?-?-?-?-?-?-?-?-?-?-?-?- 8w 2d 264 lb (+0 oz) 120/76 -?-?-?-?-?-?-?-?-?-?-?-?- 169 -?-?-?-?-?-?-?-?-?-?-?-?- KW-CRL cons with embryo transfer. declines NIPT had genetic testing at [facility] 11/05/24 -?-?-?-?-?-?-?-?-?-?-?-?- 12w 1d 260 lb [...] growth scans at 34 and 38 weeks. [facility] signed today JV- no lof, vaginal bleeding , or dec fm. has growth scans at 34 and 38 weeks. [facility] signed today. pelvic exam performed for tightening feeling. vaginitis smear ordered. 03/26/25 -?-?-?-?-?-?-?-?-?-?-?-?- 32w 2d 267 lb 4 oz (+3 lb 4 oz) 131/82 Negative -?-?-?--?-?-?-?-?-?-?-?-?- Negative 142 38 -?-?-?-?-?-?-?-?-?-?-?-?- JV- needs weekly [...] no lof, vaginal bleeding, or dec fm. 05/06/25 -?-?-?-?-?-?-?-?-?-?-?-?- 38w 1d 271 lb 3 oz (+7 lb 3 oz) 125/84 Negative -?-?-?-?-?-?-?-?-?-?-?-?- Negative 160 -?-?-?-?-?-?-?-?-?-?-?-?- JV- no lof, vagi nal bleeding, or dec fm. NST reactive but initially was in the 170's to 180's transiently. she states that she just drank and large coke and rowan's ROS Constitutional Constitutional: Denies change in weight, fatigue, fever(s), headache(s), poor appetite or weakness Eyes Eyes: Denies blurry vision, change in vision, seeing flashes or spots in vision ENT HEENT: Denies dizziness, headache(s), loss taste/smell or sore throat Cardiovascular Cardiovascular: Denies chest pain, dizziness, dyspnea, irregular heart rhythm, leg edema, palpitations, rapid heart rate or vomiting Respiratory/Chest Respiratory/Chest: Denies chest tightness, cough, dyspnea or breast pain Gastrointestinal Gastrointestinal: Denies abdominal pain, anorexia, constipation, cramping, diarrhea, hemorrhoids, vomiting or weight changes Genitourinary Genitourinary: Denies dysuria, flank pain, genital lesions, genital pain, urinary frequency or urinary urgency Musculoskeletal Musculoskeletal: Denies back pain, difficulty walking, joint pain, limited range of motion, muscle cramps or numbness Integumentary Integumentary: Denies lesions or unusual bruising Neurologic Neurologic: Denies abnormal movements, abnormal speech, dizziness, numbness, seizure-like activity or syncope Psychiatric Psychiatric: Denies anxiety, behavioral changes, change in appetite, change in libido, cognitive impairment, confusion, depression, difficulty concentrating, hallucinations or suicidal thoughts Endocrine Endocrinology: Denies excessive sweating, polydipsia or polyuria Hematologic/Lymphatic Hematologic/Lymphatic: Denies easy bleeding, easy bruising or lymphadenopathy Allergic/Immunologic Allergic/Immunologic: Denies itchy eyes, lip swelling, seasonal rhinorrhea, rhinitis, throat swelling, tongue swelling, eczemia, wheezing or asthma Vital Signs Vital Signs Vital Signs: 05/12/25 06:07 05/12/25 06:15 05/12/25 06:15 Temperature Temperature Source Oral Pulse Rate Respiratory Rate 16 Blood Pressure 89/52 L Blood Pressure Mean BP Systolic 89 BP Diastolic 52 Blood Pressure Source Blood Pressure Position Blood Pressure Location Pulse Ox Oxygen Delivery Method 05/12/25 06:15 05/12/25 06:15 05/12/25 06:15 Temperature Temperature Source Pulse Rate 70 Respiratory Rate 16 Blood Pressure Blood Pressure Mean BP Systolic BP Diastolic Blood Pressure Source Blood Pressure Position Blood Pressure Location Pulse Ox 99 Oxygen Delivery Method 05/12/25 06:15 05/12/25 06:35 Temperature 98.4 F 98.4 F Temperature Source Temporal Pulse Rate 70 Respiratory Rate 16 Blood Pressure 89/52 L Blood Pressure Mean 64 BP Systolic BP Diastolic Blood Pressure Source Monitor Blood Pressure Position Semi-Fowlers Blood Pressure Location Right Arm Pulse Ox 99 Oxygen Delivery Method Room Air Weight Weight: 266 lb 12.149 oz Body Mass Index (BMI) 48.7 Physical Exam Const alert, oriented x3, no apparent distress and healthy appearing General Appearance: cooperative; Negative for anxious HEENT normocephalic Face and Sinus: normal facial exam Eyes EOMs intact bilaterally and no scleral icterus General Eye: normal appearance of both eyes Neck full ROM and supple Lymph Lymphatic: no lymphadenopathy noted Chest Chest: symmetrical chest wall rise Resp normal respiratory effort Effort and Inspection: able to speak in complete sentences Cardio regular rate GI soft to palpation and non-tender Inspection: gravid Palpation: soft; Negative for tender Back/Spine no CVA tenderness Extremity normal to inspection, full ROM and no clubbing, cyanosis or edema General Extremity: Negative for calf tenderness or edema Skin Lesions: no lesions Rashes: no rashes Psych mental status grossly normal Labs Labs Labs: Blood Type B NEGATIVE Antibody Screen NEGATIVE Hct 36.4 % (37-47) L Hgb 12.5 g/dL (12.0-15.0) Pap Smear Negative Syphilis Total Ab Nonreactive (Nonreactive) VZV IgG Antibody 1347 index (Immune >165) Rubella IgG Antibody Reactive (Nonreactive) Hep Bs Antigen Non-Reactive (Nonreactive) Hepatitis C Antibody Non-Reactive (Nonreactive) Chlamydia DNA (CONCHITA) Negative (Negative) N.gonorrhoeae DNA (CONCHITA) Negative (Negative) HIV 1&2 Antibody Nonreactive (Nonreactive) Glucose 1 Hr 50 gm 172 mg/dL (70-140) H Gest Glucose Tolerance mg/dL Miscellaneous Test COMMENT (.) Assessment & Plan (1) GBS (group B Streptococcus carrier), +RV culture, currently : COMMENT: treat in labor (2) Abnormal glucose affecting : COMMENT: passed 3 hour gtt (3) H/O section: COMMENT: x1, 2020. desires repeat C/S: RLTCS 05/12/25 JV. (4) AMA (advanced maternal age) multigravida 35+: (5) Conceived by in vitro fertilization: COMMENT: growth and NSTs at 36 weeks. deliver by 39. Transferred male embryo - embryo tested (6) Family history of genetic disorder: COMMENT: FOB w/ Shaw Muscular Dystrophy (X Chromosome linked) FOB adopted with limited medical history (7) Marijuana use: COMMENT: Last use: May 2024; Pt informed of random tox screens (8) Obesity affecting : COMMENT: BMI 47.5; twice weekly BPPs at 34 weeks-HgBA1C ordered (9) Rh negative status during : COMMENT: B-, Needs Rhogam @ 28 weeks (10) Supervision of high-risk : COMMENT: PRR, , ANTONIO 05/19/25,boy PC: Larry, : [place] (11) : QUALIFIERS: Weeks of gestation: 38 weeks Qualified Code(s): Z3A.38 - 38 weeks gestation of COMMENT: Discussed genetic/carrier testing - declines d/t embryo tested prior to transfer, nl anatomy. echo normal. (12) Sleep apnea: (13) Infertility associated with anovulation: (14) GERD (gastroesophageal reflux disease): QUALIFIERS: Esophagitis presence: without esophagitis Qualified Code(s): K21.9 - Gastro-esophageal reflux disease without esophagitis (15) Depression with anxiety: (16) PCOS (polycystic ovarian syndrome): PLAN: Plan After discussing the patient's diagnosis and treatment plan options, patient wishes to proceed withsurgical management. I have discussed with the patient the risks, benefits, and alternatives of theprocedure which include but are not limited to risks of anesthesia, bleeding, infection, possible damage to bowel, bladder, or surrounding vasculature which could lead to additional surgery to evaluate any complications. Patient agrees to procedure and wishes to proceed. ACOG/uptodate references given for additional information regarding procedure. plan for repeat section. due to BMI she will not be a candidate for duramorph. we will perform a tap block with exparel 05/12/25 0716 Cosigner Signature (if applicable): CC: Dr. Steffen Eisenberg MD; Dr. Edel Bullock, ~ Signed [facility]07-30-2025 Progress [facility] [address], [address] [place] [address] OFFICE VISIT Date of Service: 04/28/25 MR#: [id number] Acct: [id number] Name: BARBY CABALLERO Rep #: [id number] : 1990 Provider: Dr. Kellen Bullock DO Age/Sex: 34/F Location: [facility] Status: Signed Intake Vital Signs 03/10/25 14:28 04/20/25 14:13 04/28/25 14:03 04/28/25 14:05 Height 5 ft 2 in 5 ft 2 in 5 ft 2 in 5 ft 2 in Weight: 268 lb 4 oz 265 lb 4 oz BMI 49.0 48.5 BP 116/81 H 123/86 H Intake Visit Reasons: 37 WK OB *CSECTION/JV Joint Cutter Machine Required: No Is patient in pain?: No [...] mg tablet 81 mg PO DAILY 04/19/25 07/ History magnesium 200 mg tablet 200 mg [...] 1 current occupational status: unemployed current occupation: [employer] current occupational exposures/hazards: No 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 Date Name GA/Weeks Outcome Route Bth Weight Infant Gen Labor Lgth Anesthesia Del Locatn Provider FOB 07/18/21 Larry 40 live - full term 7lbs 7oz Male [facility] [place] Delivery Date: 07/18/21 Last [...] and Symptoms of Preeclampsia, Feeding No , Education and Family Medical [...] ovarian syndrome) E28.2 CPT Codes Non-Stress Test (97990) Assessment and Plan Assessment and Plan (1) [...] Gastro- esophageal reflux disease without esophagitis (15) Depression with anxiety: Status: Acute (16) PCOS (polycystic ovarian syndrome): Status: Acute Orders: Orders POC Urinalysis 2 Dip (Clinic) Today OB NST Today Z78.9 - Other specified health status Culture, Group B Streptococcus Today O09.90 - Supervision of high risk , unspecified, unspecified trimester 04/28/25 1447 e Shanita DO> Date _ Edel Bullock DO Cosigner Signature: Date (if applicable) CC: ~ [facility]07-30-2025 Progress note Author Edel Diehl [facility] Note Date/Time April 28, 2025 2:47 pm [facility] [address], [address] [place] [address] OFFICE VISIT Date of Service: 04/28/25 MR#: [id number] Acct: [id number] Name: BARBY CABALLERO Rep #: [id number] : 1990 Provider: Dr. 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 declines NIPT had genetic testing at [facility] 11/05/24 -?-?-?-?-?-?-?-?-?-?-?-?- 12w 1d 260 lb [...] growth scans at 34 and 38 weeks. [facility] signed today JV- no lof, vaginal bleeding , or dec fm. has growth scans at 34 and 38 weeks. [facility] signed today. pelvic exam performed [...] and Symptoms of Preeclampsia, Feeding No , [place] Education and Family Medical Leave or Disability [...] ovarian syndrome) E28.2 CPT Codes Non-Stress Test (87302) Assessment and Plan Assessment and Plan (1) [...] Cosigner Signature: Date (if applicable) CC: ~ [facility] Work Phone: 1(895) 344-424207-28-2025 Radiology Diagnostic study note [facility] Imaging Services [address] [place], [place] [address], [place] [address] OB Biophysical Prof W/O ROT MR#: [id number] Acct: [id number] Name: BARBY CABALLERO Rep #: [id number] : 1990 F 34 From: Sloan Padron MD PCP: Dr. Steffen Eisenberg MD Status: REG CLI Study:OB Biophysical Prof W/O NST Date of Exa m: 04/22/25 Exam# [id number] Ordering Dr: Edel Rowley DO PROCEDURE: OB [...] NST IMPRESSION: Normal biophysical profile. Reading Location: [id number] CC: Dr. Steffen Eisenberg MD; Dr. Edel Bullock DO ~ Hand Stapler: Signed [facility]07-22-2025 [facility] [address], [address] [place] [address] OFFICE VISIT Date of Service: 04/20/25 MR#: [id number] Acct: [id number] Name: BARBY CABALLERO Rep #: [id number] : 1990 Provider: Dr. 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 declines NIPT had genetic testing at [facility] 11/05/24 -?-?-?-?-?-?-?-?-?-?-?-?- 12w 1d 260 lb [...] growth scans at 34 and 38 weeks. [facility] signed today JV- no lof, vaginal bleeding , or dec fm. has growth scans at 34 and 38 weeks. [facility] signed today. pelvic exam performed [...] Cosigner Signature: Date (if applicable) CC: ~ [facility]07-22-2025 Progress note Author Apple Lao [facility] Note Date/Time April 20, 2025 2:29 pm [facility] [address], [address] [place] [address] OFFICE VISIT Date of Service: 04/20/25 MR#: [id number] Acct: [id number] Name: FEDERICOBARBYVICKI DEWITTE Rep #: [id number] : 1990 Provider: Dr. 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 Date Name GA/Weeks Outcome Route Bth Weight Infant Gen Labor Lgth Anesthesia Del Locatn Provider FOB 07/18/21 Larry 40 live - full term 7lbs 7oz Male [facility] [place] Delivery Date: 07/18/21 Last [...] transfer. declines NIPT had genetic testing at [facility] 11/05/24 -?-?-?-?-?-?-?-?-?-?-?-?- 12w 1d 260 lb [...] growth scans at 34 and 38 weeks. [facility] signed today JV- no lof, vaginal bleeding , or dec fm. has growth scans at 34 and 38 weeks. [facility] signed today. pelvic exam performed [...] POC Urinalysis 2 Dip (Clinic) Today 04/20/25 2048 <Electronically signed by Apple brown MD> Date _ Apple Lao MD [facility] Signature: Date (if applicable) CC: ~ [facility] Work Phone: 1(170) 156-583907-17-2025 Radiology Diagnostic study note [facility] Imaging Services [address] [place] [address] OB Biophysical Prof W/O NST MR#: [id number] Acct: [id number] Name: BARBY CABALLERO Rep #: [id number] : 1990 F 34 From: Sloan Padron MD PCP: Dr. Steffen Eisenberg MD Status: REG CLI Study:OB Biophysical Prof W/O NST Date of Exa m: 04/15/25 Exam# [id number] Ordering Dr: Edel Rowley DO PROCEDURE: OB [...] NST IMPRESSION: Normal biophysical profile. Reading Location: [facility] CC: Dr. Steffen Eisenberg MD; Dr. Edel Bullock DO ~ Hand Stapler: Signed [facility]07-09-2025 Progress [facility] [address], [address] [place] [address] OFFICE VISIT Date of Service: 04/07/25 MR#: [id number] Acct: [id number] Name: BARBY CABALLERO Rep #: [id number] : 1990 Provider: Dr. 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 Date Name GA/Weeks Outcome Route Bth Weight Gen Labor Lgth Anesthesia Del Locatn Provider FOB 07/18/21 Larry 40 live - full term 7lbs 7oz Male [facility] [place] Delivery Date: 07/18/21 Last [...] transfer. declines NIPT had genetic testing at [facility] 11/05/24 -?-?-?-?-?-?-?-?-?-?--?-?- 12w 1d 260 lb [...] and Symptoms of Preeclampsia, Feeding No , [place] Education and Family Medical Leave or Disability [...] System Signature: Date (if applicable) CC: ~ [facility]06-27-2025 [facility] [address], [address] [place] [address] OFFICE VISIT Date of Service: 03/26/25 MR#: [id number] Acct: [id number] Name: DONGKiranBARBYVICKI BLAND Rep #: [id number] : 1990 Provider: Dr. 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 [facility] signed today JV- no lof, vaginal bleeding , or dec fm. has growth scans at 34 and 38 weeks. [facility] signed today. pelvic exam performed [...] and Symptoms of Preeclampsia, Feeding No , [place] Education and Family Medical Leave or Disability [...] Shanita DO> Date _ Edel Bullock DO Cosigner Signature: Date (if applicable) CC: ~ [id number] Progress note Author Edel Diehl [facility] Note Date/Time March 26, 2025 2:36 pm [facility] [address], [address] [place] [address] OFFICE VISIT Date of Service: 03/26/25 MR#: [id number] Acct: [id number] Name: FEDERICOBARBY EDWINA Rep #: [id number] : 1990 Provider: Dr. 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 Date Name GA/Weeks Outcome Route Bth Weight Gen Labor Lgth Anesthesia Del Locatn Provider FOB 07/18/21 Larry 40 live - full term 7lbs 7oz Male [facility] [place] Delivery Date: 07/18/21 Last [...] 165 -?-?-?-?-?-?-?-?-?-?-?-?- JV- pt to stop p diandraestersilvina today. start baby asa for bmi and [...] growth scans at 34 and 38 weeks. [facility] signed today JV- no lof, vaginal bleeding , or dec fm. has growth scans at 34 and 38 weeks. [facility] signed today. pelvic exam performed [...] Quintana DO> Date _ Edel Bullock DO [facility] Signature: Date (if applicable) CC: ~ [facility] Work Phone: 1(585) 400-641505-30-2025 Progress [facility] [address] [place] [address], [address] [place] [address] OFFICE VISIT Date of Service: 02/26/25 MR#: [id number] Acct: [id number] Name: BARBY CABALLERO Rep #: [id number] : 1990 Provider: Dr. 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 Date Name GA/Weeks Outcome Route Bth Weight Infant Gen Labor Lgth Anesthesia Del Locatn Provider FOB 07/18/21 Larry 40 live - full term 7lbs 7oz Male [facility] [place] Delivery Date: 07/18/21 Last [...] and Symptoms of Preeclampsia, Feeding No , Education and Family Medical Leave or Disability Forms Office Procedures Injections Is this a patient provided medication?: No Office Meds RhoGAM Ultra-Filtered PLUS 1,500 unit (300 mcg) intramuscular syringe Performing Provider: Apple Lao MD Performing Location: [facility] Administered by: Aziza Olson on 02/26/25 08:56 Dose Route Admin Location Dispensed Lot Number Expiration Date NDC Cutter Operator Brick 1,500 unit IM right gluteal 1 ea [id number] 03/05/27 [id number] [employer] [facility] Results POC Urinalysis 2 Dip (Clinic) Office [...] Cosigner Signature: Date (if applicable) CC: ~ [facility]05-02-2025 Evaluation note* Diagnosis Onset Date Resolution Status [...] 2025 2:10pm Depression with anxiety acute J [facility] 2024 2:10pm Family history of genetic disorder [...] 9 :54am Depression with anxiety acute J [facility] 2024 9:54am Family history of genetic disorder [...] carrier), +RV culture, currently acute May 06, 025 2:05pm GERD (gastroesophageal reflu x disease) [...] of high-risk acute May 06, 2025 2:05pm [facility] Work Phone: 1(384) 397-326005-02-2025 Evaluation note* Diagnosis Onset Date Resolution Status [...] 2025 2:11pm Depression with anxiety acute J [facility] 2024 2:11pm Family history of genetic disorder [...] 26, 2025 2:10pm Depression with anxiety acute [facility] 2024 2:10pm Family history of genetic disorder [...] 2025 2:05pm Depression with anxiety acute A [facility] 2024 2:05pm Family history of genetic disorder acute May 06, 2025 2:05pm GBS (group B Streptococcus carrier), +RV culture, currently acute May 06, 025 2:05pm GERD (gastroesophageal reflu x disease) [...] 06, 2025 2:05pm Sleep apnea acute May 06 025 2:05pm Supervision of high-risk acute May 06, 2025 2:05pm Abnormal glucose affecting acute May 12 5:52am AMA (advanced maternal age) multigravida 35+ acute May 12 5:52am Conceived by in vitro fertilization acute May 12 5:52am Depression with anxiety acute A ugust 2024 5:52am Family history of genetic disorder acute May 12 5:52am GBS (group B Streptococcus carrier), +RV culture, currently acute May 12, 2025 5:52am GERD (gastroesophageal reflu x disease) acute May 12 5:52am H/O section acute 2024 5:52am Infertility associated with anovulation acute May 12 5:52am Itching acute May 12, 2 025 5:52am Marijuana use acute April 5:52am Obesity affecting acute May 12, 2025 5:52am PCOS (polycystic ovarian syndrome) acute May 12 5:52am acute May 12, 2 025 5:52am Rh negative status during acute May 12 5:52am S/P acute April 5:52am Sleep apnea acute May 12, 2025 5:52am Supervision of high-risk acute May 12 5:52am [facility] Work Phone: 1(361) 749-148504-04-2025 Evaluation note* Diagnosis Onset Date Resolution Status [...] 8 :34am Marijuana use acute February 26, 8:34am Obesity affecting acute February 26, 2025 [...] 10, 2025 2:11pm Depression with anxiety acute [facility] 2024 2:11pm Family history of genetic disorder [...] 26, 2025 2:10pm Depression with anxiety acute [facility] 2024 2:10pm Family history of genetic disorder [...] high-risk acute April 07, 2025 9 :54am [facility] Work Phone: 1(386) 231-121504-04-2025 Evaluation note* Diagnosis Onset Date Resolution Status Admit Date AMA (advanced maternal age) multigravida 35+ acute January 01, 2025 10:03am Conceived by in vitro fertilization acute January 01, 2025 10:03am Depression with anxiety acute A [facility] 2024 10:03am Family history of genetic disorder [...] 2025 2:11pm Depression with anxiety acute J [facility] 2024 2:11pm Family history of genetic disorder [...] 2025 2:10pm Depression with anxiety acute J [facility] 2024 2:10pm Family history of genetic disorder [...] of high-risk acute April 20, 2025 1:59pm [facility] Work Phone: 1(180) 249-379904-04-2025 Evaluation note* Diagnosis Onset Date Resolution Status [...] 10 :15am Depression with anxiety acute M 2024 10:15am Family history of genetic disorder [...] 2025 2:11pm Depression with anxiety acute J [facility] 2024 2:11pm Family history of genetic disorder [...] 26, 2025 2:10pm Depression with anxiety acute [facility] 2024 2:10pm Family history of genetic disorder [...] 2025 9 :54am Depression with anxiety acute [facility] 2024 9:54am Family history of genetic disorder [...] 2025 2:01pm Depression with anxiety acute J 2024 2:01pm Family history of genetic disorder acute [...] of high-risk acute April 28, 2025 2:01pm [facility] Work Phone: 1(542) 599-321003-06-2025 Evaluation note* Diagnosis Onset Date Resolution Status [...] January 01, 2025 10:03am H/O section acute Apr l 2024 10:03am Infertility associated with anovulation [...] 8 :34am Marijuana use acute February 26, 8:34am Obesity affecting acute February 26, 2025 8:34am PCOS (polycystic ovarian syndrome) acute February 26, 2025 8 :34am acute February 26, 2025 8:34am Rh negative status during acute February 26, 2025 8 :34am Sleep apnea acute February 26 8:34am Supervision of high-risk acute February 26, 2025 8 :34am [facility] Work Phone: 1(893) 338-776503-06-2025 Evaluation note* Diagnosis Onset Date Resolution Status [...] of high-risk acute March 10, 2025 2:11pm [facility] Work Phone: 1(692) 621-735503-06-2025 Evaluation note* Diagnosis Onset Date Resolution Status [...] 2025 2:10pm Depression with anxiety acute J [facility] 2024 2:10pm Family history of genetic disorder [...] of high-risk acute March 26, 2025 2:10pm [facility] Work Phone: 1(227) 263-138002-06-2025 Evaluation note* Diagnosis Onset Date Resolution Status Admit Date AMA (advanced maternal age) multigravida 35+ acute November 05 2:22pm Conceived by in vitro fertilization acute [...] high-risk acute February 26, 2025 8 :34am [facility] Work Phone: 1(680) 593-538602-04-2025 NoteHNO ID: [id number] Author: DEMARCUS MINER PA-C Service: ? Author Type: Physician Oyster Picker Type: Progress Notes Filed: 11/03/2024 16:55 Note Text: Telemedicine Visit - Distance Health Virtual Visit Note Patient seen on [employer] Video Visit platform. Location of patient: [place] I have communicated my name and active licensure. The patient's identity and physical location were verified at the time of this visit. Either the patient or their legal sales representative has been informed of the risks [...] person care - All questions answered [facility]02-04-2025 History of Present illness Narrative* Demarcus Miner PA-C - 11/03/2024 4:51 PM EST Telemedicine Visit - Distance Health Virtual Visit Note Patient seen on [employer] Video Visit platform. Location of patient: [place] I have communicated my name and active licensure. The patient's identity and physical location wereverified at the time of this visit. Either the patient or their legal sales representative has been informed of the risks [...] answered Demarcus Miner PA-C [facility] * Telephone Encounter - Marta Del Valle MD - 07/29/2024 5:17 PM EDT Due for yearly follow up - must be seen to get additional re [facility]2024 Miscellaneous Notes* Telephone Encounter - Marta Del Valle MD - 07/29/2024 5:17 PM EDT Due for yearly follow up - must be seen to get additional re documented [facility]-2024 NoteHNO ID: [id number] Author: GINA SAHU APRN.REHAB SPECIALIST Service: ? Author Type: Nurse Practitioner Type: [...] Patient agreeable to treatment plan. Gina Sahu APRN.[facility]04-14-2024 History of Present illness Narrative* Gina Sahu APRN.[facility] - 01/12/2024 11:06 AM EDT CC: Patient [...] Patient agreeable to treatment plan. Gina Sahu APRN.REHAB SPECIALIST documented in this encounterL[facility]03-11-2024 Procedure [facility]04-12-2023 History of Present illness Narrative* Lynne Landaverde - 01/09/2023 9:00 AM EDT Patient offered a medical steamer operator for sensitive exam. Pt declined [facility]12-[facility]-2022 History of Present illness Narrative* Maile Bobby [...] . Physical Exam Exam conducted with a steamer operator present. Constitutional: General: She is not in [...] pumping but will send e consult for retirement benefits specialist to ensure no additional work up indicated. Normal breast exam, normal TFTs and prolactin documented in this encounterOS[facility]20[facility] NoteSatisfactory For Evaluation; Endocervical/Transformation Zone Component Present.[facility] HospitalComment on above:Order Comment: Patient'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Performed By: #### THINP #### [facility] (DEFAULT) [address] [id number] History of Present illness Narrative* Faith Starkey MD - 09/05/2022 1:30 PM EST Subjective: Barby Caballero is a 31 y.o. female here for routine exam. Current Complaints: none. Personal Health Questionnaire Reviewed: yes One year old at home, pumped and had great supply, no longer pumping but still has supply in freezer. Had urgent L/S ijeoma 08/2021 Gynecologic History Patient's last menstrual period [...] Exam in one year. documented in this encounterOSU [facility]-2022 Miscellaneous Notes* Addendum Note - Chris Whitney MA - 09/05/2022 1:30 PM ESTAddended by: CHRIS WHITNEY on: 09/05/2022 02:34 PM Modules accepted: Orders * Addendum Note - Faith Starkey MD - 09/05/2022 1:30 PM ESTAddended by: FAITH STARKEY on: 09/05/2022 03:03 PM Modules accepted: Orders documented in this encounterMount [facility]12-07-2022 Note* Addendum Note - Chris Whitney MA - 09/05/2022 1:30 PM ESTAddended by: CHRIS WHITNEY on: 09/05/2022 02:34 PM Modules accepted: Orders [facility]12-07-2022 Note* Addendum Note - Faith Starkey MD - 09/05/2022 1:30 PM ESTAddended by: FAITH STARKEY on: 09/05/2022 03:03 PM Modules accepted: Orders [facility]08-18-2021 History of Present illness Narrative* Faith Starkey [...] Rh neg Posterior placenta Discussed (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 Objective: Assessment: 31w5d Plan: 1. Has US in 3 weeks 2. RTC 2-4 weeks documented in this encounterOSU [facility]* Diagnosis Supervision of normal first , antepartum- Primary documented in this encounter [facility]* Diagnosis Well woman exam with routine gynecological exam- Primary Routine gynecological examination documented in this encounter [facility]* Diagnosis Well adult exam- Primary Routine [...] full remission documented in this encounter [facility]* Diagnosis Breast pain, right Mastodynia documented in this encounter [facility]* Diagnosis Onset Date Resolution Status Infertility associated with anovulation acute PCOS (polycystic ovarian syndrome) acute Encounter for routine gynecological examination noneactive PCOS (polycystic ovarian syndrome) acute [facility] Work Phone: Evaluation note* Diagnosis URI, acute- Primary Acute upper respiratory infections of unspecified site Acute otitis media, right Unspecified otitis media Acute cough [facility] Diagnosis Encounter for assisted reproductive fertility procedure cycle documented in this encounter [facility] Work Phone: Evaluation note* Diagnosis Encounter for assisted reproductive fertility procedure cycle documented in this encounter [facility] Work Phone: Evaluation note* Diagnosis Encounter for assisted reproductive fertility procedure cycle documented in this encounter [facility] Work Phone: Evaluation note* Diagnosis Encounter for assisted reproductive fertility procedure cycle documented in this encounter [facility] Work Phone: Evaluation note* Diagnosis Encounter for test, result positive (HHS-HCC) documented in this encounter [facility] Work Phone: Evaluation note* Diagnosis Encounter for test, result positive (HHS-HCC) documented in this encounter [facility] Work Phone: Evaluation note* Diagnosis Viral URI with cough- Primary Acute upper respiratory infections of unspecified site [facility] Attachments The following attachments cannot be sent through Care Everywhere. * Breast Health ([facility]) (Surinamese) * Breast Self-Exam (Surinamese) documented in this encounterOSU [facility]hillProgress note Author Apple Lao [facility] Note Date/Time February 26, 2025 9:38a m [facility] [address], [address] [place] [address] OFFICE VISIT Date of Service: 02/26/25 MR#: [id number] Acct: [id number] Name: BARBY CABALLERO Rep #: [id number] : 1990 Provider: Dr. 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 Date Name GA/Weeks Outcome Route Bth Weight Infant Gen Labor Lgth Anesthesia Del Locatn Provider FOB 07/18/21 Larry 40 live - full term 7lbs 7oz Male general [facility] [place] Delivery Date: 07/18/21 Last Updated [...] and Symptoms of Preeclampsia, Feeding No , Education and Family Medical Leave or Disability Forms Office Procedures Injections Is this a patient provided medication?: No Office Meds RhoGAM Ultra-Filtered PLUS 1,500 unit (300 mcg) intramuscular syringe Performing Provider: Apple Lao MD Performing Location: [facility] Administered by: Aziza Olson on 02/26/25 08:56 Dose Route Admin Location Dispensed Lot Number Expiration Date NDC Cutter Operator Brick 1,500 unit IM right gluteal 1 ea [id number] 03/05/27 58014-755-7 0 [facility] Results POC Urinalysis 2 Dip (Clinic) Office [...] Cosigner Signature: Date (if applicable) CC: ~ [facility] Work Phone: Progress note Author Edel Diehl [facility] Note Date/Time April 07, 2025 10:55 am [facility] [address] [place] [address], [address] [place] [address] OFFICE VISIT Date of Service: 04/07/25 MR#: [id number] Acct: [id number] Name: DONGKiranBARBYIVCKI BLAND Rep #: [id number] : 1990 Provider: Dr. 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 Date Name GA/Weeks Outcome Route Bth Weight Gen Labor Lgth Anesthesia Del Locatn Provider FOB 07/18/21 Larry 40 live - full term 7lbs 7oz Male [facility] [place] Delivery Date: 07/18/21 Last [...] transfer. declines NIPT had genetic testing at [facility] 11/05/24 -?-?-?-?-?-?-?-?-?-?--?-?- 12w 1d 260 lb [...] Symptoms of Preeclampsia, Infant Feeding No , [place] Education and Family Medical Leave or Disability [...] Cosigner Signature: Date (if applicable) CC: ~ [facility] Work Phone: Rejtyp for referral (narrative)No reason for referral information availableProvidence Holy Cross Medical Center Work Phone: Reason for visit Narrative* Imaging (Routine) - Authorized Specialty Diagnoses / Procedures Referred By Adia vicente Referred To Contact Radiology Diagnoses Encounter for assisted reproductive fertility procedure cycle Procedures US PELVIS TRANSABDOMINAL WITH TRANSVAGINAL Levon Braxton MD [address] [facility] [place] [address] Phone: tel: fax: Referral ID Status Reason Start Date Expiration Date Visits Requested Visits Authorized [id number] Authorized Perform Procedure 4 08/13/2025 1 1 [facility] Work Phone: Reason for visit Narrative* Imaging (Routine) - Authorized Specialty Diagnoses / Procedures Referred By Contac t Referred To Contact Radiology Diagnoses Encounter for assisted reproductive fertility procedure cycle Procedures US PELVIS TRANSABDOMINAL WITH TRANSVAGINAL Levon Braxton MD [address] [place] [address] Phone: tel: fax: Referral ID Status Reason Start Date Expiration Date Visits Requested Visits Authorized [id number] Authorized Perform Procedure 4 08/14/2025 1 1 [facility] Work Phone: Reason for visit Narrative* Imaging (Routine) - Authorized Specialty Diagnoses / Procedures Referred By Contac t Referred To Contact Radiology Diagnoses Encounter for test, result positive (HHS-HCC) Procedures US PELVIS OB TRANSABDOMINAL W TRANSVAGINAL UP TO 1ST TRIMESTER Levon Braxton MD [address] [place] [address] Phone: tel: fax: Referral ID Status Reason Start Date Expiration Date Visits Requested Visits Authorized [id number] Authorized Perform Procedure 4 09/15/2025 1 1 [facility] Work Phone: Reason for visit Narrative* Imaging (Routine) - Authorized Specialty Diagnoses / Procedures Referred By Contac t Referred To Contact Radiology Diagnoses Encounter for test, result positive (HHS-HCC) Procedures US PELVIS OB TRANSABDOMINAL W TRANSVAGINAL UP TO 1ST TRIMESTER Levon Braxton MD [address] [place] [address] Phone: tel: fax: Referral ID Status Reason Start Date Expiration Date Visits Requested Visits Authorized [id number] Authorized Perform Procedure 4 09/25/2025 1 1 [facility] Work Phone: History of Present Illness * Janes Gutiérrez MD - 08/20/2018 9:07 AM EST Formatting of this note may be different from the original. [facility] [address] [place] [id number] Hematology and Oncology Progress Note Patient Name: Barby Caballero MR #: [id number] : 1990 Date of Service: 08/20/18 Clinician: Janes Gutiérrez MD DIAGNOSIS Leukocytosis, etiology unknown. Dictation on: 08/20/2018 9:09 AM by: JANES GUTIÉRREZ [[id number]] History of Present Illness: Ms. Barby Caballero [...] bowel disease or arthritis. 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 For some reason, her CRP has been high over the last year. By reviewing her chart, she had leukocytosis for almost a year now. She is not on any steroid product. Dictation on: 08/20/2018 9:36 AM by: JANES GUTIÉRREZ [[id number]] Allergies Allergen Reactions Amoxicillin Diarrhea and GI [...] on: 08/20/2018 9:37 AM by: JANES GUTIÉRREZ [[id number]] Orders Placed This Encounter CBC and Differential Janes Gutiérrez MD CC: Marta Del Valle MD in this encounter* Janes Gutiérrez MD - 01/22/2020 1:48 PM EDT [facility] [address] [facility] [phone] Hematology and Oncology Progress Note Patient Name: Barby Caballero MR #: [id number] : 1990 Date of Service: 02/18/2019 Clinician: [...] bowel disease or arthritis. 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 For some reason, her CRP has been [...] back negative. She is clinically asymptomatic. 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 CBC stable with WBC 5.15, Hgb 13.5 [...] file Gets together: Not on file Attends jew service: Not on file Active member of [...] Skin Lesion Additional comments: Left abdomen since oxygen tank filler unchanged Last edited by Will Prabhakar MD [...] - 07/27/2020 10:40 AM EDT Patient Name: [facility] Location: Barby Caballero [address] [place] [id number] Date Of : Date Of Visit: 1990 07/27/2020 MRN# Provider: [id number] Marli Thompson PA-C Chief Complaint Patient presents [...] . famotidine (PEPCID) 40 MG tablet vit 74-tvta-lkjds-dha ( + DHA) 28 mg iron- 975 [...] go immediately to ED for further evaluation [facility] COVID-19 Post-swabbing Instructions We will do our best to update you as soon as we receive your test results, but if we had to send your test to be run at the lab, you may see the results on MyChart or receive a call from [facility] before we are able to contact you. [...] results. - If you have an active [employer] account, and your COVID-19 test is negative (not detected), then you will be notified through your [employer] account. You should call the urgent care if you have any further questions. - If your COVID-19 test is positive (detected), you will receive a phone call to discuss your results and answer any questions you might have at that time. Please make sure [facility] has your updated phone number so we can contact you. [facility] will notify the [place] [facility] of any positive results to comply with [...] and warm water and/or alcohol based hand aviation project manager, scrubbing your hands for at least 20 [...] Other COVID Questions? CDC - https://www.cdc.gov/coronavirus/2019-ncov/index.html - https://www.cdc.gov/coronavirus/2019-ncov/ta-yfa-xcm-sick/quarantine.html [place] [facility] - Website: https://coronavirus.[place].gov/wps/portal/gov/covid-19/home - Hotline: 773-8-NQH-ODH (813-679-3054) [facility]: https://blog.Ewireless.99times.cn/series/bewij-31-egaeeicmxvu-toolkit/ documented in this encounter* Janes Gutiérrez MD - 08/19/2019 11:05 AM EST [facility] [address] [facility] [phone] Hematology and Oncology Progress Note Patient Name: Barby Caballero MR #: [id number] : 1990 Date of Service: 08/19/19 Clinician: [...] bowel disease or arthritis. 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 For some reason, her CRP has been [...] days. No fever or chills. 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 Dictation on: 08/19/2019 11:07 AM by: JANES GUTIÉRREZ [[id number]] Allergies Allergen Reactions Amoxicillin Diarrhea and GI [...] file Gets together: Not on file Attends jew service: Not on file Active member of [...] on: 08/19/2019 11:08 AM by: JANES GUTIÉRREZ [[id number]] Orders Placed This Encounter famotidine (PEPCID) 40 [...] sent through Care Everywhere. * Abdominal Pain (Surinamese) documented in this encounter* Instructions* Laurent Duque MD - 03/19/2019 Continue taking your home medications as prescribed. Follow-up with your family doctor first available appointment. Return to the emergency room for any worsening symptoms or concerns * Attachments The following attachments cannot be sent through Care Everywhere. * Abdominal Pain (Surinamese) * Chest Pain (Surinamese) documented in this encounter Advance Directives No Advanced Directives Records FoundDocuments on File Type Date Recorded Patient Lathe Set Up Person Expl anation Advance Directives and Livin g Will 07/29/2019 10:42 AM Documents on File Type Date Recorded Patient Lathe Set Up Person Expl anation Advance Directives and Livin g Will 08/19/2019 10:42 AM Documents on File Type Date Recorded Patient Lathe Set Up Person Expl anation Advance Directives and Livin g [...] Do you have a Healthcare Power of Site Damage Prevention Technician? No November 10, 2024 8:21pm Advance Directive Response Recorded Date/ Time Do you have a Healthcare Power of Site Damage Prevention Technician? unsu re May 12, 2025 6:17am Summary Purpose Family History No Family History Records Found Relationship Condition Age at Onset Recorded Date/T sherri mother Hypertension Unknown grandfather Cardiac disease Unknown Hypertension Unknown Diabetes mellitus Unknown Malignant neoplasm Unknown Macular degeneration Unknown grandmother Macular degeneration Unknown Instructions * Patient Instructions* Sandie Tyler MA - 08/23/2020 9:02 AM EST Effective 10/14/2019, all [employer] users will be automatically enrolled in paperless billing in an effort to save our environment by eliminating waste & reduce healthcare costs. A monthly notification will be sent to your e-mail address on file indicating you have a new billing statement available in [employer]. If you prefer to receive paper statements, log into [employer] at [employer] to update your e-mail, text and mail preferences (opting out of paperless billing). Please direct further questions to Customer Service at [phone] or . documented in this encounter* Patient [...] go immediately to ED for further evaluation [facility] COVID-19 Post-swabbing Instructions We will do our best to update you as soon as we receive your test results, but if we had to send your test to be run at the lab, you may see the results on MyChart or receive a call from [facility] before we are able to contact you. [...] results. - If you have an active [employer] account, and your COVID-19 test is negative (not detected), then you will be notified through your [employer] account. You should call the urgent care if you have any further questions. - If your COVID-19 test is positive (detected), you will receive a phone call to discuss your results and answer any questions you might have at that time. Please make sure [facility] has your updated phone number so we can contact you. [facility] will notify the [facility] of any positive results to comply with [...] and warm water and/or alcohol based hand aviation project manager, scrubbing your hands for at least 20 [...] Other COVID Questions? CDC - https://www.cdc.gov/coronavirus/2019-ncov/index.html - https://www.cdc.gov/coronavirus/2019-ncov/or-vbz-nbi-sick/quarantine.html [place] Department of Health - Website: https://coronavirus.[place].gov/wps/portal/gov/covid-19/home - Hotline: 004-0-TYL-ODH (102-958-5601) [facility]: https://blog.Ewireless.99times.cn/series/iodup-45-wmtngonmsyz-toolkit/ documented in this encounter Reason for Referral Specialty Diagnoses / Procedures Referred By Adia t Referred To Contact Diagnoses Prolonged Marta Del Valle MD [address] [place] [address] Referral ID Status Reason Start Date Expiration Date V isits Requested Visits Authorized [id number] New Request 09/27/2022 10/22/2023 1 1 Specialty Diagnoses / Procedures Referred By Adia t Referred To Contact Radiology Diagnoses Encounter for assisted reproductive fertility procedure cycle Procedures US PELVIS TRANSABDOMINAL WITH TRANSVAGINAL US pelvis transvaginal Levon Braxton MD [address] [place] [address] Referral ID Status Reason Start Date Expiration Date Visits Requested Visits Authorized [id number] Pending Review Perform Procedure 06/11/2024 06/11/2025 1 1 Specialty Diagnoses / Procedures Referred By Adia t Referred To Contact Radiology Diagnoses Encounter for assisted reproductive fertility procedure cycle Procedures GERRY US Pelvis Limited Follicles - Follicle Studies Performed Levon Braxton MD [address] [place] [address] Referral ID Status Reason Start Date Expiration Date Visits Requested Visits Authorized [id number] Authorized Perform Procedure 06/19/2024 06/19/2025 1 1 Specialty Diagnoses / Procedures Referred By Adia t Referred To Contact Radiology Diagnoses Encounter for assisted reproductive fertility procedure cycle Procedures US PELVIS TRANSABDOMINAL WITH TRANSVAGINAL Levon Braxton MD [address] [facility] [place] [address] Referral ID Status Reason Start Date Expiration Date Visits Requested Visits Authorized [id number] Authorized Perform Procedure 06/15/2024 06/15/2025 1 1 Referral ID Status Reason Start Date Expiration Date Visits Requested Visits Authorized [id number] Authorized Perform Procedure 06/22/2024 06/22/2025 1 1 Referral ID Status Reason Start Date Expiration Date Visits Requested Visits Authorized [id number] Authorized Perform Procedure 06/15/2024 06/15/2025 1 1 Referral ID Status Reason Start Date Expiration Date Visits Requested Visits Authorized [id number] Authorized Perform Procedure 06/24/2024 06/24/2025 1 1 Referral ID Status Reason Start Date Expiration Date Visits Requested Visits Authorized [id number] Authorized Perform Procedure 06/15/2024 06/15/2025 1 1 Chief Complaint and Reason for Visit 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 Reason for Visit Infertility associat [...] 2024 2:22pm Conceived by in vitro fertilization [facility]2024 2:22pm Depression with anxiety November 05 2:22pm Family history of genetic disorder [facility]2024 2:22pm GERD (gastroesophageal reflux disease) [place] [facility] 2024 2:22pm H/O section November 05, 2024 2:22pm Infertility associated with anovulation November 05, 2024 2:22pm Marijuana use November 05, 2024 2 :22pm Obesity affecting October 2:22pm PCOS (polycystic ovarian syndrome) [facility]2024 2:22pm November 05, 2024 2 :22pm Rh negative status during 2024 2:22pm Sleep apnea November 05, 2024 2 :22pm Supervision of high-risk [facility] 2024 2:22pm AMA (advanced maternal age) multigravida 35+ December 03, 2024 1:25pm Conceived by in vitro fertilization [facility] 2024 1:25pm Depression with anxiety December 03, 2024 1:25pm Family history of genetic disorder December 03, 2024 1:25pm GERD (gastroesophageal reflux disease) M [facility] 2024 1:25pm H/O section [...] 10:15am AMA (advanced maternal age) multigravida 35+ May 30th, 2025 8:34am Conceived by in vitro fertilization [...] PCOS (polycystic ovarian syndrome) January 302024 8:34am May 30th, 2025 8:34a m Rh negative status during [...] 10, 2025 2:11 pm Obesity affecting March 10 025 2:11pm PCOS (polycystic ovarian syndrome) March [...] 2025 10:0 3am Obesity affecting January 01 025 10:03am PCOS (polycystic ovarian syndrome) January [...] 292024 10:15am GERD (gastroesophageal reflux disease) M 2024 10:15am H/O section January 29, 2025 [...] 2025 2:11pm GERD (gastroesophageal reflux disease) J [facility] 2024 2:11pm H/O section March 10, 2025 [...] 10, 2025 2:11pm Abnormal glucose affecting [facility] 2024 2:10pm AMA (advanced maternal age) multigravida 35+ March 26, 2025 2:10pm Conceived by in vitro fertilization March 26, 2025 2:10pm Depression with anxiety March 26, 2025 2:10pm Family history of genetic disorder March 26, 2025 2:10pm GERD (gastroesophageal reflux disease) J [facility] 2024 2:10pm H/O section March 26, 2025 [...] 07, 2025 9:54am Chief Complaint Admit Date 20 WK OB [...] 2025 2:11pm GERD (gastroesophageal reflux disease) J [facility] 2024 2:11pm H/O section March 10, 2025 2:1 1pm Infertility associated with anovulation March 10, 2025 2:11pm Marijuana use March 10, 2025 2:11 pm Obesity affecting March 10 025 2:11pm PCOS (polycystic ovarian syndrome) March [...] 2025 2:10pm GERD (gastroesophageal reflux disease) J [facility] 2024 2:10pm H/O section March 26, 2025 2:1 0pm Infertility associated with anovulation March 26, 2025 2:10pm Marijuana use March 26, 2025 2:10 pm Obesity affecting March 26, 025 2:10pm PCOS (polycystic ovarian syndrome) March [...] 2025 9:54am GERD (gastroesophageal reflux disease) J [facility] 2024 9:54am H/O section [...] 2025 2:10pm GERD (gastroesophageal reflux disease) J [facility] 2024 2:10pm H/O section March 26, 2025 [...] 2025 9:54am GERD (gastroesophageal reflux disease) J [facility] 2024 9:54am H/O section [...] disease) M ay 2024 10:15am H/O section May 2nd, 2025 10:15 am Infertility associated with anovulation [...] 2025 2:10pm GERD (gastroesophageal reflux disease) J [facility] 2024 2:10pm H/O section March 26, 2025 [...] 2025 9:54am GERD (gastroesophageal reflux disease) J [facility] 2024 9:54am H/O section [...] 2025 8:47 am Obesity affecting April 19, 2 025 8:47am April 19, 2025 8:47 am [...] 28, 2025 2:01pm Abnormal glucose affecting Apr us2024 2:05pm AMA (advanced maternal age) multigravida 35+ May 06, 2025 2:05pm Conceived by in vitro fertilization [facility] 2024 2:05pm Depression with anxiety May 06, [...] 06, 2025 2:05pm PCOS (polycystic ovarian syndrome) [facility] 2024 2:05pm May 06, 2025 2:0 5pm Rh negative status during [facility] 2024 2:05pm Sleep apnea May 06, 2025 2:0 5pm Supervision of high-risk 2024 2:05pm Chief Complaint Admit Date 24 WK OB [...] OB *CSECTION/JV May 06, 2025 2 :05pm C SECTION/DELIVERED C SECTION April 5:52am C SECTION May 12, 2025 7: 14am C SECTION/DELIVERED C SECTION April 6:07pm C SECTION/DELIVERED C SECTION April 8:28am C SECTION/DELIVERED C SECTION April 8:40am Reason for Visit Admit Date AMA (advanced maternal age) multigravida 35+ January 29, 2025 10:15am Conceived by in vitro fertilization January 29, 2025 10:15am Depression with anxiety January 29, 2025 10 :15am Family history of genetic disorder January 292024 10:15am GERD (gastroesophageal reflux disease) M 2024 10:15am H/O section January 29, 2025 [...] 10, 2025 2:11pm GERD (gastroesophageal reflux disease) [facility] 2024 2:11pm H/O section March 10, 2025 2:1 1pm Infertility associated with anovulation March 10, 2025 2:11pm Marijuana use March 10, 2025 2:11 pm Obesity affecting March 10 2:11pm PCOS (polycystic ovarian syndrome) March 10, [...] 2025 2:10pm GERD (gastroesophageal reflux disease) J [facility] 2024 2:10pm H/O section March 26, 2025 2:1 0pm Infertility associated with anovulation March 26, 2025 2:10pm Marijuana use March 26, 2025 2:10 pm Obesity affecting March 26, 025 2:10pm PCOS (polycystic ovarian syndrome) March [...] 2025 1:59 pm Obesity affecting April 20, 025 1:59pm PCOS (polycystic ovarian syndrome) April [...] 28, 2025 2:01pm Abnormal glucose affecting Apr us2024 2:05pm AMA (advanced maternal age) multigravida 35+ May 06, 2025 2:05pm Conceived by in vitro fertilization [facility] 2024 2:05pm Depression with anxiety May 06, 2025 2:05pm Family history of genetic disorder [facility] 2024 2:05pm GBS (group B Streptococcus c arrier), +RV culture, currently May 06, 2025 2:05pm GERD (gastroesophageal reflux disease) A [facility] 2024 2:05pm H/O section May 06, 2025 2: 05pm Infertility associated with anovulation May 06, 2025 2:05pm Itching May 06, 2025 2:0 5pm Marijuana use May 06, 2025 2:0 5pm Obesity affecting May 06, 2025 2:05pm PCOS (polycystic ovarian syndrome) [facility] 2024 2:05pm May 06, 2025 2:0 5pm Rh negative status during [facility] 2024 2:05pm Sleep apnea May 06, 2025 2:0 5pm Supervision of high-risk [facility] 2024 2:05pm Abnormal glucose affecting Apr 5:52am AMA (advanced maternal age) multigravida 35+ May 12, 2025 5:52am Conceived by in vitro fertilization [facility] 2024 5:52am Depression with anxiety May 12 5:52am Family history of genetic disorder [facility] 2024 5:52am GBS (group B Streptococcus c arrier), +RV culture, currently May 12, 2025 5:52am GERD (gastroesophageal reflux disease) [facility] 2024 5:52am H/O section May 12, 2025 5 :52am Infertility associated with anovulation May 12, 2025 5:52am Itching May 12, 2025 5: 52am Marijuana use May 12, 2025 5: 52am Obesity affecting May 12, 2025 5:52am PCOS (polycystic ovarian syndrome) [facility] 2024 5:52am May 12, 2025 5: 52am Rh negative status during [facility] 2024 5:52am S/P May 12, 2025 5: 52am Sleep apnea May 12, 2025 5: 52am Supervision of high-risk [facility] 2024 5:52am Additional Source Comments Reason for Visit (unrecogniz [...] BILATERAL MAMMO DIAGNOSTIC BILATERAL Lawrence Young MD [address] [place] [phone] Referral ID Status Reason Start Date Expiration Date V isits Requested Visits Authorized [id number] New Request 12/19/2022 01/13/2024 1 1 Reason Comments Cough Fevers x4 days Specialty Diagnoses / Procedures Referred By Adia vicente Referred To Contact Radiology Diagnoses Encounter for assisted reproductive fertility procedure cycle Procedures US PELVIS TRANSABDOMINAL WITH TRANSVAGINAL US pelvis transvaginal Levon Braxton MD [address] [address] Referral ID Status Reason Start Date Expiration Date Visits Requested Visits Authorized [id number] Pending Review Perform Procedure 06/11/2024 06/11/2025 1 1 Specialty Diagnoses / Procedures Referred By Adia vicente Referred To Contact Radiology Diagnoses Encounter for assisted reproductive fertility procedure cycle Procedures US PELVIS TRANSABDOMINAL WITH TRANSVAGINAL Levon Braxton MD [address] [place] [address] Referral ID Status Reason Start Date Expiration Date Visits Requested Visits Authorized [id number] Authorized Perform Procedure 06/15/2024 06/15/2025 1 1 Referral ID Status Reason Start Date Expiration Date Visits Requested Visits Authorized [id number] Authorized Perform Procedure 06/15/2024 06/15/2025 1 1 Referral ID Status Reason Start Date Expiration Date Visits Requested Visits Authorized [id number] Authorized Perform Procedure 06/15/2024 06/15/2025 1 1 Reason Comments Cough Max Alan PA-C - 07/29/2019 1:14 PM Mirta Davenport RN - 07/29/2019 12:15 PM Mirta Davenport RN - 07/29/2019 10:40 AM Rebeca Jiménez RN - 07/29/2019 10:25 AM EDT ED Notes (unrecognized secti on and content) [facility] NAME: Barby Caballero PCP: Marta Del Valle MD AGE: 28 y.o. CSN: [id number] ED Course / Medical Decision Making: After [...] file Gets together: Not on file Attends jew service: Not on file Active member of [...] Procedure Abnormality Status --------- ------ CBC Auto Differential[[id number]] Abnormal Final result Please view results for [...] Otherwise unremarkable right upper quadrant abdominal ultrasound. [employer]/Know[employer] Workstation ID: [id number] No current facility-administered medications [...] for ER worsening or new concerning symptoms [address] [facility] [address] Contact information for after-discharge care Follow-up information has not been specified. New Prescriptions ondansetron (Zofran ODT) 4 MG disintegrating tablet Dissolve 1 (one) tablet (4 mg total) on top of tongue every 6 (six) hours as needed for nausea . Max MATTA PA-C Emergency Department Physician Oyster Picker (Please note that portions of this note [...] with steady gait Associated Order(s): EKG 12-lead [facility] PCP - Marta Del Valle MD Chief Complaint Patient presents with Chest Pain HPI 28-year-old white female with a history of reflux, depression, anxiety, and irritable bowel states that shortly after 6 PM she had some Kiswahili fries and drank a beer and then [...] Marta Del Valle MD. Specialty: Internal Medicine [address] [place] [address] [facility] [address] Contact information for after-discharge care Follow-up [...] file Gets together: Not on file Attends jew service: Not on file Active member of [...] atelectatic change with no other acute process. [facility]/[employer] Workstation ID: [id number] No results found. Medications Ordered/Given During ED Visit Medications aspirin chewable tablet 324 mg (324 mg Oral Given 03/19/195) lidocaine viscous 2% 10 mL and maalox plus 30 mL (GI COCKTAIL) 40 mL solution (40 mL Oral Given 03/19/196) ketorolac (TORADOL) injection 30 mg (30 mg Intravenous Given 03/19/196) ondansetron (ZOFRAN) injection 4 mg (4 mg Intravenous Given 03/19/194) EKG 12-lead Date/Time: 03/18/2019 11:49 PM Performed by: Laurent Duqeu MD Authorized by: Laurent Duque MD Interpreted by ED attending physician Comparison: not compared with previous ECG BPM: 103 Comments: Rate 103, sinus tachycardia, normal QRS interval, normal axis, no acute ST elevation, interpreted by me I personally reviewed the x-rays and ECG if performed NarxCheck/OARRS score/reporting was reviewed Note: To expedite correspondence this note was generated by [employer]ocket[employer]La voice recognition software. Some grammatical or spelling [...] Procedure Abnormality Status --------- ------ CBC Auto Differential[[id number]] Abnormal Final result Please view results for [...] took protonix at dinner which she had guamanian fries and 1 [place] drink. documented [...] section and content) DATE CREATED AUTHOR 07/27/2020 [facility] DATE CREATED AUTHOR AUTHOR'S ORGANIZ ATION 08/23/2020 [facility] DATE CREATED AUTHOR AUTHOR'S ORGANIZ ATION 10/04/2021 [facility] DATE CREATED AUTHOR AUTHOR'S ORGANIZ ATION 10/06/2021 [facility] DATE CREATED AUTHOR AUTHOR'S ORGANIZ ATION 10/08/2021 [facility] DATE CREATED AUTHOR AUTHOR'S ORGANIZ ATION 05/04/2023 [facility] DATE CREATED AUTHOR AUTHOR'S ORGANIZ ATION 10/09/2024 [facility] DATE CREATED AUTHOR AUTHOR'S ORGANIZ ATION 10/09/2024 [facility] DATE CREATED AUTHOR AUTHOR'S ORGANIZ ATION 11/05/[address] [facility] DATE CREATED AUTHOR AUTHOR'S ORGANIZ ATION 05/10/2025 [facility] DATE CREATED AUTHOR AUTHOR'S ORGANIZ ATION 05/23/2025 [facility] Care Teams (unrecognized sec tion and content) Medical Chemist Relationship Specialty Start Date End Date Marta Del Valle MD PCP - General Internal Medicine 12/09/13 Medical Chemist Relationship Specialty Start Date End Date Marta Del Valle MD PCP - General Internal Medicine 12/09/13 Faith Starkey MD [address] [phone] PCP - OBGYN Obstetrics & Gynecology 07/17/21 Medical Chemist Relationship Specialty Start Date End Date Marta Del Valle MD PCP - General Internal Medicine 12/09/13 Faith Starkey MD [address] [phone] PCP - OBGYN Obstetrics & Gynecology 07/17/21 Medical Chemist Relationship Specialty Start Date End Date Faith Starkey MD [address] [phone] PCP - OBGYN Obstetrics & Gynecology 07/17/21 Marta Del Valle MD [address] [place] [address], [place] [phone] PCP - General Internal Medicine 01/09/23 Lawrence Young MD [address] [place] [address], [place] [phone] Referring Provider Internal Medicine 01/09/23 Team Status: [...] Primary Care Physician Primary Care Provider Active Medical Chemist Relationship Specialty Start Date End Date Faith Starkey MD [address] [phone] PCP - OBGYN Obstetrics & Gynecology 07/17/21 Marta Del Valle MD [address] [place] [address], [place] [phone] PCP - General Internal Medicine 01/09/23 Lawrence Young MD [address] [place] [address], [place] [phone] Referring Provider Internal Medicine 01/09/23 Medical Chemist Relationship Specialty Start Date End Date Steffen Eisenberg MD [address] [place] [phone] PCP - General Internal Medicine 08/14/24 Medical Chemist Relationship Specialty Start Date End Date Generic Provider, [place] [address] PCP - General Associate Professor Of Media Arts 06/15/24 Medical Chemist Relationship Specialty Start Date End Date Generic Provider, [place] [address] PCP - General Associate Professor Of Media Arts 06/15/24 Medical Chemist Relationship Specialty Start Date End Date Generic Provider, [place] [address] PCP - General Associate Professor Of Media Arts 06/15/24 Medical Chemist Relationship Specialty Start Date End Date Generic Provider, [place] [address] PCP - General Associate Professor Of Media Arts 06/15/24 Medical Chemist Relationship Specialty Start Date End Date Steffen Eisenberg MD [address] [place] [phone] PCP - General Internal Medicine 08/14/24 Medical Chemist Relationship Specialty Start Date End Date Steffen Eisenberg MD [address] [place] [phone] PCP - General Internal Medicine 08/14/24 Team [...] Inactive Member Role Status Dates Dr. Steffen Eisenebrg MD Primary Care Provider Active Start: March [...] 01, 2025 End: January 01, 2025 Dr. Appel Lao MD Attending Provider Active Start: January [...] End: March 10, 2025 Dr. Edel Bullock , DO Referring Provider Activ e Start: March 10, 2025 End: March 10, 2025 Team Status: Inactive Member Role/Relationship Status Dates Dr. Steffen Eisenberg MD Primary Care Provider Active Start: March 26, 2025 End: March 26, 2025 Dr. Steffen Eisenberg MD Referring Provider Active Start: March 26, 2025 End: March 26, 2025 Dr. Edel Bullock , DO Attending Provider Activ e Start: March 26, 2025 End: March 26, 2025 Team Status: Inactive Member Role/Relationship Status Dates Dr. Steffen Eisenberg MD Primary Care Provider Active Start: April 07, 2025 End: April 07, 2025 Dr. Steffen Eisenberg MD Referring Provider Active Start: April 07, 2025 End: April 07, 2025 Dr. Edel Bullock , DO Attending Provider Activ e Start: April 07, 2025 End: April 07, 2025 Team Status: Active Member Role/Relationship Status Dates Dr. Steffen Eisenberg MD Primary Care Provider Active Start: April 07, 2025 Dr. Edel Bullock , DO Attending Provider Activ e Start: April 07, 2025 Dr. Edel Bullock , DO Referring Provider Activ e Start: April 07, 2025 Team Status: Inactive Member Role/Relationship Status Dates Dr. Steffen Eisenberg MD Primary Care Provider Active Start: April 07, 2025 End: April 07, 2025 Dr. Edel Bullock , DO Attending Provider Activ e Start: April 07, 2025 End: April 07, 2025 Dr. Edel Bullock , DO Referring Provider Activ e Start: April 07, 2025 End: April 07, 2025 Team Status: Active Member Role/Relationship Status Dates Dr. Steffen Eisenberg MD Primary Care Provider Active Start: April 15, 2025 Dr. Edel Bullock , DO Attending Provider Activ e Start: April 15, 2025 Dr. Edel Bullock , DO Referring Provider Activ e Start: April [...] May 06, 2025 End: May 06, 2025 Team Status: Inactive Member Role/Relationship Status Dates Dr. Steffen Eisenberg MD Primary Care Provider Active Start: May 12, 2025 End: May 15, 2025 Dr. Edel Bullock DO Admit Provider Active Start: May 12, 2025 End: May 15, 2025 Dr. Edel Bullock DO Attending Provider Activ e Start: May 12, 2025 End: May 15, 2025 Dr. Edel Bullock DO Referring Provider Activ e Start: May 12, 2025 End: May 15, 2025 Team Status: Active Member Role/Relationship Status Dates Dr. Steffen Eisenberg MD Primary Care Provider Active Start: May 12, 2025 Dr. Edel Bullock DO Admit Provider Active Start: May 12, 2025 Dr. Edel Bullock DO Attending Provider Activ e Start: May 12, 2025 Dr. Edel Bullock DO Other Provider Active Start: May 12, 2025 Team Status: Active Member Role/Relationship Status Dates Dr. Steffen Eisenberg MD Primary Care Provider Active Start: May 13, 2025 Dr. Edel Bullock DO Admit Provider Active Start: May 13, 2025 Dr. Edel Bullock DO Referring Provider Activ e Start: May 13, 2025 Dr. Edel Bullock DO Other Provider Active Start: May 13, 2025 Dr. Apple Lao MD Attending Provider Active Start: May 13, 2025 Team Status: Active Member Role/Relationship Status Dates Dr. Steffen Eisenberg MD Primary Care Provider Active Start: May 14, 2025 Dr. Edel Bullock DO Admit Provider Active Start: May 14, 2025 Dr. Edel Bullock DO Referring Provider Activ e Start: May 14, 2025 Dr. Edel Bullock DO Other Provider Active Start: May 14, 2025 Mariana Jonas CNM Attending Provider Active Start: May 14, 2025 Team Status: Active Member Role/Relationship Status Dates Dr. Steffen Eisenberg MD Primary Care Provider Active Start: May 15, 2025 Dr. Edel Bullock DO Admit Provider Active Start: May 15, 2025 Dr. Edel Bullock DO Referring Provider Activ e Start: May 15, 2025 Dr. Edel Bullock DO Other Provider Active Start: May 15, 2025 Mariana Jonas CNM Attending Provider Active Start: May 15, 2025 Goals (unrecognized section and content) Goals [...] or prosecute any alcohol or drug abuse patient.[facility] HospitalIn the event this information is protected by the Federal Confidentiality of Alcohol and Drug Abuse Patient Records regulations: The Federal rules restrict any use of the information to criminally investigate or prosecute any alcohol or drug abuse patient.[facility] FOR RECORDS PERTAINING TO PATIENTS WHO [...] BE BASED ON THE PRIMARY CLINICAL RECORDS. [facility] [place] [facility]. provides no warranty or guarantee of the accuracy or completeness of information in this document.
--- NOTE | 2025-05-24 19:05 | PCM.HP.OB ---
HPI - General General Date of Admission: 05/24/25 HPI Narrative BARBY CABALLERO, is a 34 y/o , status post section on 05/12/25, who presents to [facility] ER with fever up to 102 at home. Here her Tmax was a 101. She was tachycardic upon presentation. CTA chest was negative for a PE, UA negative for UTI, CT abdomen shows a 15 cm seroma vs abscess vs blood clot of the ventral abdomen within the subcutaneous layer. She is exclusively pumping and states that her left breast excretes clotted blood and feels sore. [facility] Medical History (Updated 05/24/25 @ 19:[address] Edel Bullock, DO) PCOS (polycystic ovarian syndrome) Infertility Depression with anxiety GERD (gastroesophageal reflux disease) Home Medications ?Medication ?Instructions ?Recorded ?Last Taken ?Type escitalopram oxalate 10 mg tablet 10 mg PO DAILY anxiety/depression 07/20/24 05/23/25 Rx (Lexapro) #30 tabs docosahexaenoic acid 200 mg 200 mg PO DAILY #90 caps 07/28/24 05/23/25 Rx capsule ( DHA) famotidine 40 mg tablet (Pepcid) 40 mg PO DAILY indigestion #30 tabs 01/11/25 05/23/25 Rx breast pump #1 ea 01/29/25 Unknown Rx ibuprofen 800 mg tablet 800 mg PO Q8H PRN pain #30 tabs 05/12/25 05/24/25 Rx acetaminophen 500 mg capsule 1,000 mg PO Q6H PRN fever or pain 05/24/25 05/24/25 History Allergy/AdvReac Type Severity Reaction Status Date / Time No Known Allergies Allergy Verified 05/12/25 06:30 Family History Mother Hypertension Grandfather Heart disease Hypertension Diabetes Cancer Macular degeneration Grandmother Macular degeneration Surgical History (Updated 05/24/25 @ 18:[address] Pee Sargent, DO) H/O successful vaginal after , currently H/O section History of surgical procedure S/P cholecystectomy S/P S/P wisdom tooth extraction Social History adopted: No household members: spouse and children housing: house number of children: 1 current occupational status: unemployed current occupation: [employer] current occupational exposures/hazards: No 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) pets and animals: cat(s) history of recent travel: Yes ([place] for IVF) out of state: Yes sexually active: Yes Smoking Status: Former smoker quit date: 09/30/21 alcohol intake: current alcohol intake frequency: holidays/special occasions only details: Not while substance use type: former substance user Date of last use: May 2024 and marijuana diet: vegetarian well-balanced diet: about half the time caffeine: Yes Type: carbonated beverages Number of servings: 1 eating out: 4 or more times/week during the past year weight has: remained stable what type of physical activity do you participate in: none landon/jewish: None seatbelt use: always do you feel safe at home: Yes additional social history: : [employer] (works from home) History 2 Elective abortions Hx Para 2 Spontaneous abortions Hx # Term Pregnancies 2 Ectopic pregnancies Hx # Pregnancies Multiple births # of living children 2 Past Pregnancies Del. Date Name GA/Weeks Outcome Route Bth Weight Infant Gen Labor Lgth Anesthesia Del Locatn Provider FOB 07/18/21 Larry 40 live - full term 7lbs 7oz Male [facility] 05/12/25 39 live - full term Male [facility] Delivery Date: 07/18/21 Last Updated by: Aida Shields RN Induce d/t failure to progress naturally .. Slow progression of labor w/ decels .. Failed vacuum delivery into emergency csec Delivery Date: 05/12/25 Last Updated by: Aida Shields RN Repeat CS ROS Constitutional Constitutional: Reports fatigue, fever(s), headache(s) and poor appetite; Denies body ache(s), change in weight or excessive sweating Cardiovascular Cardiovascular: Reports leg edema; Denies abdominal pain, chest pain, diaphoresis or dizziness Respiratory/Chest Respiratory/Chest: Denies chest tightness, cough or dyspnea Gastrointestinal Gastrointestinal: Denies belching, bloating, change in bowel habits, constipation, cramping, diarrhea or hemorrhoids Genitourinary Genitourinary: Denies burning urination or difficulty urinating Musculoskeletal Musculoskeletal: Reports none Integumentary Integumentary: Reports other Details: reports bruising on abdomen and blisters around her incision Psychiatric Psychiatric: Denies anxiety, confusion or depression Hematologic/Lymphatic Hematologic/Lymphatic: Reports systems reviewed and no addt'l complaints, except as documented Vital Signs Vital Signs Vital Signs: 05/24/25 13:55 05/24/25 13:56 05/24/25 14:08 Temperature 101.2 F H 100.4 F H Temperature Source Oral Oral Pulse Rate 168 H 135 H Respiratory Rate 22 H 25 H Respiratory Effort Normal Respiratory Pattern Normal Blood Pressure 138/94 H 151/76 H Blood Pressure Mean 108 101 Pulse Ox 98 99 Oxygen Delivery Method Room Air Room Air 05/24/25 14:31 05/24/25 14:59 05/24/25 15:00 Temperature 100.1 F H 99.6 F H Temperature Source Oral Oral Pulse Rate 138 H 122 H Respiratory Rate 26 H 27 H Respiratory Effort Respiratory Pattern Blood Pressure 153/75 H 110/53 L Blood Pressure Mean 101 72 Pulse Ox 98 97 98 Oxygen Delivery Method Room Air Room Air Room Air 05/24/25 16:00 05/24/25 17:04 05/24/25 18:22 Temperature 99.6 F H 99.1 F 98.6 F Temperature Source Oral Oral Oral Pulse Rate 129 H 121 H 125 H Respiratory Rate 20 H 27 H 20 H Respiratory Effort Respiratory Pattern Blood Pressure 133/71 H 117/74 120/76 Blood Pressure Mean 91 88 90 Pulse Ox 99 97 99 Oxygen Delivery Method Room Air Room Air Room Air 05/24/25 18:25 Temperature 98.6 F Temperature Source Pulse Rate 125 H Respiratory Rate 20 H Respiratory Effort Respiratory Pattern Blood Pressure 120/76 Blood Pressure Mean 90 Pulse Ox 99 Oxygen Delivery Method Weight Weight: 261 lb 4.8 oz Body Mass Index (BMI) 47.7 Physical Exam Const alert, oriented x3 and no apparent distress HEENT normocephalic Eyes PERRL Neck full ROM Lymph Lymphatic: no lymphadenopathy noted Chest inspection of chest normal Breast/Axilla Palpation: other Other Details: bilateral breasts are engorged. no obvious abscesses or lesion. The left nipple is cracked and there is dried blood present. Resp normal respiratory effort Effort and Inspection: able to speak in complete sentences and symmetric chest movement Cardio regular rhythm Cardio Narrative: tachycardic 110 Rate: tachycardic GI GI Narrative: morbidly obese abdomen with 2 areas of ecchymosis measuring approximately 10 cm each. On on right side of pannus and one midline. The incision is clean, dry, intact. There is some overlapping of the incision in the midline measuring 1 cm. There is no oozing or discharge of any kind. The blisters that were reported appear to be secondary to her dressing. Palpation: Negative for tender, guarding or rigid Narrative: some ecchymosis of the mons pubis. normal appearing external genitalia. Back/Spine no CVA tenderness Extremity General Extremity: edema bilateral lower extremity Details: mild Psych mental status grossly normal Appearance: grossly normal Speech: normal speech Labs Labs Labs: Blood Type B NEGATIVE Antibody Screen NEGATIVE Hct 29.4 % (37-47) L Hgb 9.9 g/dL (12.0-15.0) L Pap Smear Negative Syphilis Total Ab Nonreactive (Nonreactive) VZV IgG Antibody 1347 index (Immune >165) Rubella IgG Antibody Reactive (Nonreactive) Hep Bs Antigen Non-Reactive (Nonreactive) Hepatitis C Antibody Non-Reactive (Nonreactive) Chlamydia DNA (CONCIHTA) Negative (Negative) N.gonorrhoeae DNA (CONCHITA) Negative (Negative) HIV 1&2 Antibody Nonreactive (Nonreactive) Glucose 1 Hr 50 gm 172 mg/dL (70-140) H Gest Glucose Tolerance mg/dL Miscellaneous Test COMMENT (.) Assessment & Plan (1) Postoperative fever: (2) Subcutaneous abscess: (3) S/P : (4) Soft tissue abscess: (5) Tachycardia: PLAN: Plan 1. Admit to [facility] and collect blood cultures x 2 2. start zosyn 3.375 iv q 6 hrs 3. tylenol for fever 4. oxycodone and Ibuprofen for pain 5. consult to interventional radiology in the am for possible drainage of fluid collection to send for culture 6. continue to pump breast milk and store in refrigerator 7. NPO after midnight. reg diet until then
[2025-05-24] MEDS: Piperacil/Tazobactam 3.375 GM in 0.9% Normal Saline (50mL MB+) 50 ML IV (19:19)
--- OUTSIDE RECORDS SUMMARY | 2025-05-24 20:19 | XMS RPT_ITS | CCD ---
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 Role Phone Marta Del Valle Unavailable Marta Liu Primary Care Provider [phone] Marta Del Valle Primary Care Provider Marta Del Valle Primary Care Provider MARTA DEL VALLE Primary Care MARLI Alexis Attending Unavailable WILL PRABHAKAR Attending Unavailable JOSH MARTATABITHA URBINAVIVIENNE Primary Care REBECA Brady Primary Care Unavailable ANDREW BURCIAGA Admitting UnavailANDREW Cardoso Attending UnavailANDREW Cardoso Referring Unavailhermes HERNANDEZ BJai JJai Admitting Unavailable POMNADINES, BJai JJai Consulting Unavailable Julissa HERNANDEZ Attending Unavailable MARTA DEL VALLEBETH [facility] Julissa Saleh Admitting Unavailable MARTA DEL VALLE Primary Care Marta Liu MD Primary Care Provider [phone] Marta Del Valle MD Primary Care Provider Faith Starkey MD Unavailable Marta Del Valle MD Primary Care Provider Lawrence Young MD Unavailable MARTA DEL VALLE Attending Unavailable MARTA DEL VALLE Primary Care Unavailable MARTA EDL VALLE Referring Unavailable DEL VALLE, MARTA E [...] MARTA E Primary Care Unavailable DEL VALLE, MARAT E Primary Care Unavailable SELF, SELF Referring Unavailable FAITH STARKEY Attending Unavailab le DEL VALLE, MARTA E Primary Care Unavailable SELF, SELF Referring Unavailable DEL VALLE, MARTA E Primary Care Unavailable DEL VALLE, MARTA E Attending Unavailable Dr. Edel Bullock Attending Provider SHIRA DEL VALLEIN Referring Provider Unavailable Dr. Edel Bullock Referring Provider [phone] Dr. Edel Bullock Other Provider Care Physician, [...] Fermin MD Emergency Provider Tashia WOLFE, Dr. Cihu Attending Provider [phone] Dr. Apple Lao MD Referring Provider Dr. Steffen Eisenberg MD Primary Care Provider [phone] Dr. Steffen Eisenberg MD Referring Provider Dr. dEel Bullock DO Attending Provider Kiley Jain CNM [...] Provider Tashia WOLFE, Dr. Chiu Attending Provider [phone] EDEL ROCK Referring Unavailab le FAINA, STEFFEN [...] 30) Mariana Jonas CNM Attending Provider [phone] Taunton, Steffen Attending Unavailable Taunton, Steffen Referring Unavailable Taunton, Steffen Primary Care Unavailable Taunton, Steffen Attending Unavailable Taunton, Steffen Primary Care Unavailable Taunton, Steffen Primary Care Unavailable Edel Bullock Referring Unavailabl e Vande Edel Diehl Attending Unavailabl e Taunton, Steffen Primary Care Unavailable Taunton, Steffen Referring Unavailable Edel Bullock Attending Unavailabl e Faina, Steffen Primary Care Unavailable Apple Lao Attending Unavailable Apple Lao Referring Unavailable Taunton, Steffen Referring Unavailable Taunton, Steffen Attending Unavailable Care Physician, No Primary Primary Care Unava ilable Taunton, Steffen Primary Care Unavailable Edel Bullock Attending Unavailabl e Shone Edel Diehl Referring Unavailabl e Faina, Steffen Primary Care Unavailable Kiley Jain Attending Unavailable Kiley Jain Referring Unavailable Edel Bullock Consulting Unavailabl e Taunton, Steffen Primary Care Unavailable Edel Bullock Referring Unavailabl e Vande Velrico, Edel Attending Unavailabl e Faina, Steffen Referring Unavailable Faina, Steffen Primary Care Unavailable Apple Lao Attending Unavailable Taunton, Steffen Attending Unavailable Care Physician, No Primary Referring Unava ilable Care Physician, No Primary Primary Care Unava ilable Faina, Steffen Referring Unavailable Taunton, Steffen Primary Care Unavailable Edel Bullock Attending Unavailabl e Faina, Steffen Referring Unavailable Taunton, Steffen Primary Care Unavailable VandEdel Logan Attending Unavailabl e Taunton, Steffen Primary Care Unavailable Kiley Jain Attending Unavailable Kiley Jain Referring Unavailable Faina, Steffen Primary Care Unavailable Edel Bullock Attending Unavailabl e Taunton, Steffen Primary Care Unavailable Ld Fermin Attending Unavailable Taunton, Steffen Primary Care Unavailable Edel Bullock Referring Unavailabl e Edel Bullock Attending UnavailLevon Sprague Attending Unavailable Levon Braxton Referring Unavailable Care Physician, No Primary Primary Care Unava ilable Faina, Steffen Referring Unavailable Taunton, Steffen Primary Care Unavailable Edel Bullock Attending Unavailabl e Taunton, Steffen Referring Unavailable Faina, Steffen Primary Care Unavailable Vande Edle Diehl Attending Unavailabl e Faina, Steffen Referring Unavailable Taunton, Steffen Primary Care Unavailable Kiley Jain Attending Unavailable Taunton, Steffen Primary Care Unavailable Edel Bullock Referring Unavailabl e Edel Bullock Attending Unavailabl e Vande Velde Edel Admitting Unavailabl e Faina, Steffen Referring Unavailable Faina, Steffen Primary Care Unavailable Apple Lao Attending Unavailable Taunton, Steffen Primary Care Unavailable Kiley Jain Attending Unavailable Kiley Jain Referring Unavailable Taunton, Steffen Referring Unavailable Faina, Steffen Primary Care Unavailable Edel Bullock Attending Unavailabl e Taunton, Steffen Referring Unavailable Faina, Steffen Primary Care Unavailable Apple Lao Attending Unavailable Faina, Steffen Primary Care Unavailable VandEdel Logan Referring Unavailabl Apple Godoy Attending Unavailable Edel Bullock Admitting Unavailabl e Shone Edel Diehl Consulting Unavailabl Mariana Arechiga Attending Unavailable Aida Shields Attending Unavailable Faina, Steffen Primary Care Unavailable Taunton, Steffen Referring Unavailable Taunton, Steffen Primary Care Unavailable Pedro GRAIN RECEIVER, Aziza Attending Unavailable Taunton, Steffen Primary Care Unavailable Faina, Steffen Primary Care Unavailable Kiley Jain Attending Unavailable Kiley Jain Referring Unavailable VandEdel Logan Consulting Unavailabl Kiley Saunders Consulting Unavailable Vande Edel Diehl Attending Unavailabl e Taunton, Steffen Referring Unavailable Faina, Steffen Primary Care Unavailable VandEdel Logan Attending Unavailabl e Faina, Steffen Referring Unavailable Faina, Steffen Primary Care Unavailable Edel Bullock Attending Unavailabl e Allergies Allergy Classification Reported Allergen(s) Allergy Type Date of Onset Reaction(s) Facility (13 sources) Amoxicillin; Translations: [AMOXICILLIN] Drug Allergy 03-10-201 1 Diarrhea, GI Intolerance [facility] (2 sources) ALLERGIES NOT ON FILE; Translations: [ALLERGIES NOT ON FILE] Propensity to adverse reactions (disorder) [facility] 2 Repository Medications Current Medications [...] History of uterine scar from previous surgery [id number] 200 actuat albuterol 0.09 mg/actuat metered dose [...] on above: Take 1 capsule by mo [facility] three times a day as needed for [...] CAPSU LE BY MOUTH EVERY DAY vit 86-bcgu-yxnvx-dha ( + DHA) 28 mg iron- 975 mcg-200 mg Cmpk (2 sources) Start: 09-02-2019 take 1 capsule by mouth once daily vit 69-qivy-jysfc-dha ( + DHA) 28 mg iron- 975 mcg-200 mg Cmpk Take 1 capsule by mouth daily . 0 09/02/2019 Active Vit-Fe Oyp-QX-Uihzt (PNV Plus Multivit+DHA) 27-1 & 312 MG Misc (4 sources) Start: 07-29-2024 Vit-Fe Lyr-KZ-Qmryp (PNV Plus Multivit+DHA) 27-1 & 312 MG Misc 1 tab + 1 cap daily. Due for yearly follow up - must be seen to get additional refills 180 Each 07/29/2024 Active Start: 10-29-2023 End: 07-29-2024 take 1 tablet by mouth once daily Vit-Fe Laj-TO-Nlxot (PNV Plus Multivit+DHA) 27-1 & 312 MG Misc TAKE 1 TAB & 1 CAPSULE BY MOUTH EVERY DAY 180 Each 1 10/29/2023 07/29/2024 Discontinued Start: 07-03-2022 End: 09-27-2022 take 1 tablet by mouth once daily Vit-Fe Zmn-LJ-Dmrgu (PNV Plus Multivit+DHA) 27-1 & 312 MG Misc TAKE 1 TAB & 1 CAPSULE BY MOUTH EVERY DAY 0 07/03/2022 09/27/2022 Discontinued (Reorder) Start: 07-03-2022 take 1 tablet by claude th once daily Vit-Fe Lxc-BU-Edmrl (PNV Plus Multivit+DHA) 27-1 & 312 MG [...] mg/ml oral solution (2 sources) Phenothiazine, Uncompetitive P-epfkzp-C-asparta te Receptor Antagonist, Sigma-1 Agonist Start: 08-10-2022 [...] Auto (Unsp spec) [#/Vol] 2.88 10*3/uL 0.83-4.51 [facility] Absolute neutrophil countOrd ered By: Apple Lao on 05-13-2025 Neutrophils (Bld) [#/Vol] 12.5 10*3/uL High 2.0-7.7 [facility] Activated partial thrombopla stin time (aPTT) in platelet poor plasma by coagulation aOrdered By: Apple Lao on 05-13-2025 aPTT Coag (PPP) [Time] 22.8 s Low 24.1-36.2 [facility] Automated lymphocyte count a s percentage of total leukocytesOrdered By: Apple Lao on 05-13-2025 Lymphocytes/100 WBC Auto (Unsp spec) 17.1 % Low 19-41 [facility] Basophil percentageOrdered B y: Apple Lao on 05-13-2025 Basophils/100 WBC (Bld) 0.4 % 0-1 [facility] CBC W/Diff, Automatedon 04-30 Absolute Lymph 2.88 X10 3/uL Normal 0.83-4.51 [facility] Comment on above: Performed By: #### L 100.0100 ####[facility] [address] [place], [address] Absolute Neut 12.5 X10 3/uL High 2.0-7.7 [facility] Comment on above: Performed By: #### L 100.0100 ####[facility] [address] [place], [address] Basophils/100 WBC (Bld) 0.4 % Normal 0-1 [facility] Comment on above: Performed By: #### L 100.0100 ####[facility] [address] [place], [address] Eosinophils/100 WBC (Bld) 0.9 % Normal 0-5 [facility] Comment on above: Performed By: #### L 100.0100 ####[facility] [address] [place], [address] Erythrocyte distribution width (RBC) [Ratio] 13.6 % Normal 11.6-14.6 [facility] Comment on above: Performed By: #### L 100.0100 ####[facility] [address] [place], [address] Hematocrit (Bld) [Volume fraction] 33.9 % Low 37-47 [facility] Comment on above: Performed By: #### L 100.0100 ####[facility] [address] [place], [address] Hemoglobin (Bld) [Mass/Vol] 11.5 g/dL Low 12.0-15.0 [facility] Comment on above: Performed By: #### L 100.0100 ####[facility] [address] [place], [address] IG% 1.000 High 0.0-0.9 [facility] Comment on above: Result Comment: IG% - Immature Granulocytes (promyelocytes, myelocytes andmetamyelocytes) > 1% indicates that a LEFT SHIFT is Present. Performed By: #### L 100.0100 ####[facility] [address] [place], [address] Lymphocytes/100 WBC (Bld) 17.1 % Low 19-41 [facility] Comment on above: Performed By: #### L 100.0100 ####[facility] [address] [place], [address] MCH (RBC) [Entitic mass] 29.6 pg Normal 27.0-32.0 [facility] Comment on above: Performed By: #### L 100.0100 ####[facility] [address] [place], [address] MCHC (RBC) [Mass/Vol] 33.9 g/dL Normal 32-36 [facility] Comment on above: Performed By: #### L 100.0100 ####[facility] [address] [place], [address] MCV (RBC) [Entitic vol] 87.4 fL Normal 81-99 [facility] Comment on above: Performed By: #### L 100.0100 ####[facility] [address] [place], [address] Monocytes/100 WBC (Bld) 6.6 % Normal 0-10 [facility] Comment on above: Performed By: #### L 100.0100 ####[facility] [address] [place], [address] Neutrophils/100 WBC (Bld) 74.0 % High 47-70 [facility] Comment on above: Performed By: #### L 100.0100 ####[facility] [address] [place], [address] Nucleated RBC (Bld) [#/Vol] 0 10*3/uL Normal 0-5 [facility] Comment on above: Performed By: #### L 100.0100 ####[facility] [address] [place], [address] Platelet mean volume (Bld) [Entitic vol] 9.7 fL Normal 6.2-12.0 [facility] Comment on above: Performed By: #### L 100.0100 ####[facility] [address] [place], [address] Platelets (Bld) [#/Vol] 299 10*3/uL Normal 150-450 [facility] Comment on above: Performed By: #### L 100.0100 ####[facility] [address] [place], [address] RBC (Bld) [#/Vol] 3.88 10*6/uL Low 4.2-5.4 [facility] Comment on above: Performed By: #### L 100.0100 ####[facility] [address] [place], [address] RDW SD 43.1 fl Normal 35.1-43.9 [facility] Comment on above: Performed By: #### L 100.0100 ####[facility] [address] [place], [address] WBC (Bld) [#/Vol] 16.9 10*3/uL High 4.4-11.0 [facility] Comment on above: Performed By: #### L 100.0100 ####[facility] [address] [place], [address] CBC-Complete Blood Cnt No Di ffon 05-13-2025 Erythrocyte distribution width (RBC) [Ratio] 13.6 % Normal 11.6-14.6 [facility] Comment on above: Order Comment: Comme nts: Day #1Reason for Laboratory Test Performed By: #### L 100.0500 ####[facility] [address] [place], [address] Hematocrit (Bld) [Volume fraction] 33.8 % Low 37-47 [facility] Comment on above: Order Comment: Comme nts: Day #1Reason for Laboratory Test Performed By: #### L 100.0500 ####[facility] [address] [place], [address] Hemoglobin (Bld) [Mass/Vol] 11.4 g/dL Low 12.0-15.0 [facility] Comment on above: Order Comment: Comme nts: Day #1Reason for Laboratory Test Performed By: #### L 100.0500 ####[facility] [address] [place], [address] MCH (RBC) [Entitic mass] 29.4 pg Normal 27.0-32.0 [facility] Comment on above: Order Comment: Comme nts: Day #1Reason for Laboratory Test Performed By: #### L 100.0500 ####[facility] [address] [place], [address] MCHC (RBC) [Mass/Vol] 33.7 g/dL Normal 32-36 [facility] Comment on above: Order Comment: Comme nts: Day #1Reason for Laboratory Test Performed By: #### L 100.0500 ####[facility] [address] [place], [address] MCV (RBC) [Entitic vol] 87.1 fL Normal 81-99 [facility] Comment on above: Order Comment: Comme nts: Day #1Reason for Laboratory Test Performed By: #### L 100.0500 ####[facility] [address] [place], [address] Platelet mean volume (Bld) [Entitic vol] 9.6 fL Normal 6.2-12.0 [facility] Comment on above: Order Comment: Comme nts: Day #1Reason for Laboratory Test Performed By: #### L 100.0500 ####[facility] [address] [place], [address] Platelets (Bld) [#/Vol] 228 10*3/uL Normal 150-450 [facility] Comment on above: Order Comment: Comme nts: Day #1Reason for Laboratory Test Performed By: #### L 100.0500 ####[facility] [address] [place], [address] RBC (Bld) [#/Vol] 3.88 10*6/uL Low 4.2-5.4 [facility] Comment on above: Order Comment: Comme nts: Day #1Reason for Laboratory Test Performed By: #### L 100.0500 ####[facility] [address] [place], [address] RDW SD 43.1 fl Normal 35.1-43.9 [facility] Comment on above: Order Comment: Comme nts: Day #1Reason for Laboratory Test Performed By: #### L 100.0500 ####[facility] [address] [place], [address] WBC (Bld) [#/Vol] 15.0 10*3/uL High 4.4-11.0 [facility] Comment on above: Order Comment: Comme nts: Day #1Reason for Laboratory Test Performed By: #### L 100.0500 ####[facility] [address] [place], [address] Eosinophil percentageOrdered By: Apple Lao on 05-13-2025 Eosinophils/100 WBC (Bld) 0.9 % 0-5 [facility] Erythrocyte distribution wid th ratioOrdered By: Apple Lao on 05-13-2025 Erythrocyte distribution width (RBC) [Ratio] 13.6 % 11.6-14.6 [facility] Erythrocyte distribution wid th standard deviationOrdered By: Apple Lao on 05-13-2025 Erythrocyte distribution width (RBC) [Ratio] 43.1 fl 35.1-43.9 [facility] Fibrinogenon 05-13-2025 FIBRINOGEN 422 mg/dl Normal 203-444 [facility] Comment on above: Performed By: #### L 300.4700, L300.3900, L300.4310 ####[facility] [address] [place], [address] Hematocrit Auto (Bld) [Volum e fraction]Ordered By: Apple Lao on 05-13-2025 Hematocrit (Bld) [Volume fraction] 33.9 % Low 37-47 [facility] Hemoglobin measurementOrdere d By: Apple Lao on 05-13-2025 Hemoglobin (Bld) [Mass/Vol] 11.5 g/dL Low 12.0-15.0 [facility] Immature granulocytes/100 WB C Auto (Bld)Ordered By: Apple Lao on 05-13-2025 Immature granulocytes/100 WBC (Bld) 1.000 % High 0.0-0.9 [facility] Comment on above: IG% - Immature Granu locytes (promyelocytes, myelocytes and metamyelocytes) > 1% indicates that a LEFT SHIFT is Present. International normalized rat io (INR) calculationOrdered By: Apple Lao on 05-13-2025 INR Coag (Bld) [Relative time] 1.0 {INR} [facility] Thomas 05-13-2025 ROXANA Positive Abnormal [facility] Comment on above: Result Comment: Ashlee Huertas Study Reference: Negative POSITIVE AB* Feto-maternal hemorrhage ( RBCs): 10 mL. TESTING PERFORMED AT [facility]. ORIGINAL REPORT ON FILE IN LAB CONTAINS ADDITIONAL TEST SITE INFORMATION. Performed By: #### L 803.2300 ####[facility] [address] [place], [place], [id number] MCV (mean corpuscular volume ) determinationOrdered By: Apple Lao on 05-13-2025 MCV (RBC) [Entitic vol] 87.4 fL 81-99 [facility] Mean corpuscular hemoglobin (MCH) determinationOrdered By: Apple Lao on 05-13-2025 MCH (RBC) [Entitic mass] 29.6 pg 27.0-32.0 [facility] Mean corpuscular hemoglobin concentration (MCHC) determinationOrdered By: Apple Lao on 05-13-2025 MCHC (RBC) [Mass/Vol] 33.9 g/dL 32-36 [facility] Mean platelet volume determi nationOrdered By: Apple Lao on 05-13-2025 Platelet mean volume (Bld) [Entitic vol] 9.7 fL 6.2-12.0 [facility] Monocyte percentageOrdered B y: Apple Lao on 05-13-2025 Monocytes/100 WBC (Bld) 6.6 % 0-10 [facility] Neutrophil percentageOrdered By: Apple Lao on 05-13-2025 Neutrophils/100 WBC (Bld) 74.0 % High 47-70 [facility] Nucleated red blood cell per centageOrdered By: Apple Lao on 05-13-2025 Nucleated RBC/100 WBC (Bld) [Ratio] 0 % 0-5 [facility] Partial Thromboplast Timeon 05-13-2025 aPTT Coag (Bld) [Time] 22.8 s Low 24.1-36.2 [facility] Comment on above: Performed By: #### L 300.4700, L300.3900, L300.4310 ####[facility] [address] [place], [place], [address] Platelet countOrdered By: Elena Lao on 05-13-2025 Platelets (Bld) [#/Vol] 299 10*3/uL 150-450 [facility] Prothrombin Time w/INRon INR Coag (PPP) [Relative time] 1.0 {INR} Normal [facility] Comment on above: Performed By: #### L 300.4700, L300.3900, L300.4310 ####[facility] [address] [place], [address] PT Coag (PPP) [Time] 12.8 s Normal 11.7-14.9 [facility] Comment on above: Performed By: #### L 300.4700, L300.3900, L300.4310 ####[facility] [address] [place], [address] Prothrombin timeOrdered By: Apple Lao on 05-13-2025 PT Coag (PPP) [Time] 12.8 s 11.7-14.9 [facility] RBC Auto (Bld) [#/Vol]Ordere d By: Apple Lao on 05-13-2025 RBC (Bld) [#/Vol] 3.88 10*6/uL Low 4.2-5.4 [facility] White blood cell (WBC) count Ordered By: Apple Lao on 05-13-2025 WBC (Bld) [#/Vol] 16.9 10*3/uL High 4.4-11.0 [facility] Amphetamine detection with 1 000 ng/mL as cutoffOrdered By: Edel Diehl on 05-12-2025 Amphetamines Screen method >1000 ng/mL Ql (U) Negative < 200 ng/mL [facility] BRho(D) IGon 05-12-2025 Rho(D) IG Normal [facility] Comment on above: Result Comment: [id number] Rho(D) IG PRSMD TRFSD 05/12/25 [id number] Rho(D) IG PRSMD TRFSD 05/13/25 1138 Performed By: #### B Rho(D) IG, BRHNM ####[facility] [address] [place], [address] CBC W/Diff, Automatedon 08-10 02-2024 Absolute Lymph 2.15 X10 3/uL Normal 0.83-4.51 [facility] Comment on above: Performed By: #### Scotty HODGES, L100.0100 ####[facility] [address] [place], [address] Absolute Neut 9.1 X10 3/uL High 2.0-7.7 [facility] Comment on above: Performed By: #### Scotty HODGES, L100.0100 ####[facility] [address] [place], [address] Basophils/100 WBC (Bld) 0.4 % Normal 0-1 [facility] Comment on above: Performed By: #### Scotty HODGES, L100.0100 ####[facility] [address] [place], [address] Eosinophils/100 WBC (Bld) 1.1 % Normal 0-5 [facility] Comment on above: Performed By: #### Scotty HODGES, L100.0100 ####[facility] [address] [place], [address] Erythrocyte distribution width (RBC) [Ratio] 13.4 % Normal 11.6-14.6 [facility] Comment on above: Performed By: #### Scotty HODGES, L100.0100 ####[facility] [address] [place], [address] Hematocrit (Bld) [Volume fraction] 36.4 % Low 37-47 [facility] Comment on above: Performed By: #### Scotty HODGES, L100.0100 ####[facility] [address] [place], [address] Hemoglobin (Bld) [Mass/Vol] 12.5 g/dL Normal 12.0-15.0 [facility] Comment on above: Performed By: #### Scotty HODGES, L100.0100 ####[facility] [address] [place], [address] IG% 1.300 High 0.0-0.9 [facility] Comment on above: Result Comment: IG% - Immature Granulocytes (promyelocytes, myelocytes andmetamyelocytes) > 1% indicates that a LEFT SHIFT is Present. Performed By: #### Scotty HODGES, L100.0100 ####[facility] [address] [place], [address] Lymphocytes/100 WBC (Bld) 17.3 % Low 19-41 [facility] Comment on above: Performed By: #### Scotty HODGES, L100.0100 ####[facility] [address] [place], [address] MCH (RBC) [Entitic mass] 29.8 pg Normal 27.0-32.0 [facility] Comment on above: Performed By: #### Scotty HODGES, L100.0100 ####[facility] [address] [place], [address] MCHC (RBC) [Mass/Vol] 34.3 g/dL Normal 32-36 [facility] Comment on above: Performed By: #### Scotty HODGES, L100.0100 ####[facility] [address] [place], [address] MCV (RBC) [Entitic vol] 86.7 fL Normal 81-99 [facility] Comment on above: Performed By: #### Scotty HODGES, L100.0100 ####[facility] [address] [place], [address] Monocytes/100 WBC (Bld) 6.7 % Normal 0-10 [facility] Comment on above: Performed By: #### Scotty HODGES, L100.0100 ####[facility] [address] [place], [address] Neutrophils/100 WBC (Bld) 73.2 % High 47-70 [facility] Comment on above: Performed By: #### Scotty HODGES, L100.0100 ####[facility] [address] [place], [address] Nucleated RBC (Bld) [#/Vol] 0 10*3/uL Normal 0-5 [facility] Comment on above: Performed By: #### Scotty HODGES, L100.0100 ####[facility] [address] [place], [address] Platelet mean volume (Bld) [Entitic vol] 9.8 fL Normal 6.2-12.0 [facility] Comment on above: Performed By: #### Scotty HODGES, L100.0100 ####[facility] [address] [place], [address] Platelets (Bld) [#/Vol] 252 10*3/uL Normal 150-450 [facility] Comment on above: Performed By: #### Scotty HODGES, L100.0100 ####[facility] [address] [place], [address] RBC (Bld) [#/Vol] 4.20 10*6/uL Normal 4.2-5.4 [facility] Comment on above: Performed By: #### Scotty HODGES, L100.0100 ####[facility] [address] [place], [address] RDW SD 42.0 fl Normal 35.1-43.9 [facility] Comment on above: Performed By: #### Scotty HODGES, L100.0100 ####[facility] [address] [place], [address] WBC (Bld) [#/Vol] 12.4 10*3/uL High 4.4-11.0 [facility] Comment on above: Performed By: #### Scotty HODGES, L100.0100 ####[facility] [address] 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 Performed By: #### B Rho(D) IG, BRHNM ####[facility] [address] [place], [place], [id number] ABO and Rh group Nom (Bld) Blood group B Rh(D) negative Normal [facility] Comment on above: Order Comment: Comme nts: Age > 13 Weeksbaby [id number] Performed By: #### B Rho(D) IG, BRHNM ####[facility] [address] [place], [place], [id number] ABO and Rh group Nom (Bld) Blood group B Rh(D) positive Normal [facility] Comment on above: Order Comment: Comme nts: Age > 13 Weeksbaby [id number] Performed By: #### B Rho(D) IG, BRHNM ####[facility] [address] [place], [place], [id number] DIRECT ANTIGLOB Negative Normal NEGATIVE [facility] Comment on above: Order Comment: Comme nts: Age > 13 Weeksbaby [id number] Performed By: #### B Rho(D) IG, BRHNM ####[facility] [address] [place], [address] MOM'S ABS Negative Normal [facility] Comment on above: Order Comment: Comme nts: Age > 13 Weeksbaby Performed By: #### B Rho(D) IG, BRHNM ####[facility] [address] [place], [address] Screening urine fentanyl kaden surementOrdered By: Edel Diehl on 05-12-2025 fentaNYL Screen Ql (U) Negative [facility] Syphilis Antibodieson 2024 Syphilis Abs Non-Reactive Normal Nonreactive [facility] Comment on above: Performed By: #### L 509.8002 ####[facility] [address] [place], [address] Type AND Screenon 05-12-2025 Ab SCREEN GEL Negative Normal [facility] Comment on above: Order Comment: SC-SE CTION Performed By: #### B TS, L100.0100 ####[facility] [address] [place], [address] Urine Drug Screen (VISTA)on 05-12-2025 AMPHETAMINES Negative Normal <1000 ng/mL [facility] Comment on above: Performed By: #### L 505.5000 ####[facility] [address] [place], [address] BARBITIURATES Negative Normal < 200 ng/mL [facility] Comment on above: Performed By: #### L 505.5000 ####[facility] [address] [place], [address] BENZODIAZIPINE Negative Normal < 200 ng/mL [facility] Comment on above: Performed By: #### L 505.5000 ####[facility] [address] [place], [address] BUP Ur Drug Scr Negative Normal < 200 ng/mL [facility] Comment on above: Performed By: #### L 505.5000 ####[facility] [address] [place], [address] COCAINE Negative Normal < 300 ng/mL [facility] Comment on above: Performed By: #### L 505.5000 ####[facility] [address] [facility] [address] Fentanyl Negative Normal [facility] Comment on above: Performed By: #### L 505.5000 ####[facility] [address] [place], [address] METHADONE Negative Normal < 300 ng/mL [facility] Comment on above: Performed By: #### L 505.5000 ####[facility] [address] [place], [address] OPIATES Negative Normal < 300 ng/mL [facility] Comment on above: Performed By: #### L 505.5000 ####[facility] [address] [place], [address] OXYCODONE Negative Normal < 100 ng/mL [facility] Comment on above: Performed By: #### L 505.5000 ####[facility] [address] [place], [address] PCP Negative Normal < 25 ng/mL [facility] Comment on above: Performed By: #### L 505.5000 ####[facility] [address] [place], [address] THC Negative Normal < 50 ng/mL [facility] Comment on above: Performed By: #### L 505.5000 ####[facility] [address] [place], [address] Urine benzodiazepine levelOr dered By: Edel Diehl on 05-12-2025 Benzodiazepines Ql (U) Negative < 200 ng/mL [facility] Urine cocaine levelOrdered B y: Edel Diehl on 05-12-2025 Cocaine Ql (U) Negative < 300 ng/mL [facility] Urine mclcb-9-oxfmpdbckshuhw abinol (THC) measurementOrdered By: Edel Diehl on 05-12-2025 Cannabinoids Screen Ql (U) Negative < 50 ng/mL [facility] Urine phencyclidine (PCP) de tectionOrdered By: Edel Diehl on 05-12-2025 Phencyclidine Ql (U) Negative < 25 ng/mL [facility] Laboratory - Chemistry and C hemistry - challengeOrdered By: Edel Diehl on 05-06-2025 Glucose Ql (U) Negative [facility] Laboratory - UrinalysisOrder ed By: Edel Diehl on 05-06-2025 Protein Ql (U) Negative [facility] [employer] [facility] Visit Reporton 05-06-2025 [facility] [employer] Office Visit Report Normal [facility] Rule out Beta Strep (Grp. B) on 05-03-2025 RANJAN Normal [facility] Comment on above: Performed By: #### M 100.3400 ####[facility] [address] [place], [address] Laboratory - Chemistry and C hemistry - challengeOrdered By: Edel Diehl on 04-28-2025 Glucose Ql (U) Negative [facility] Laboratory - UrinalysisOrder ed By: Edel Diehl on 04-28-2025 Protein Ql (U) Negative [facility] [employer] Office Visit Reporton 04-28-2025 [facility] [employer] Office Visit Report Normal [facility] Screening beta-hemolytic Str eptococcus cultureOrdered By: Edel Diehl on 04-28-2025 Beta-hemolytic Streptococcus culture Streptococcus agalactiae (B) Abnormal [facility] OB Biophysical Prof W/O NSTo n 04-22-2025 OB Biophysical Prof W/O NST Normal [facility] Laboratory - Chemistry and C hemistry - challengeOrdered By: Appel Lao on 04-20-2025 Glucose Ql (U) Negative [facility] Laboratory - UrinalysisOrder ed By: Apple Lao on 04-20-2025 Protein Ql (U) Negative [facility] [employer] Office Visit Reporton 04-20-2025 [facility] [employer] Office Visit Report Normal [facility] OB Biophysical Prof W/O NSTo n 04-19-2025 OB Biophysical Prof W/O NST Normal [facility] OB Triage Progress Noteon OB Triage Progress Note Normal [facility] OB Biophysical Prof W/O NSTo n 04-15-2025 OB Biophysical Prof W/O NST Normal [facility] L3410.9992on 04-08-2025 [facility] Misc. COMMENT Normal . [facility] Comment on above: Order Comment: [id number] 640serum FZ bile acids Result Comment: Perf ormed at: - [facility] [place] [id number] Director: Huan Kuhn PhD, Phone: [phone] Performed By: #### L 500.4050, L3410.9992 ####[facility] [address] [place], [address] Anion gap in Serum or Plasma Ordered By: Edel Diehl on 04-07-2025 Anion gap [Moles/Vol] 12 mmol/L 5-15 [facility] BUN/creatinine ratioOrdered By: Edel Diehl on 04-07-2025 Urea nitrogen/Creatinine [Mass ratio] 7.7 mg/mg Low 10-20 [facility] Bilirubin, totalOrdered By: Edel Diehl on 04-07-2025 Bilirubin [Mass/Vol] 0.29 mg/dL 0.00-1.30 [facility] Carbon dioxide, total [Moles /volume] in Central venous bloodOrdered By: dEel Diehl on 04-07-2025 CO2 [Moles/Vol] 19.0 mmol/L Low 21.0-32.0 [facility] Chloride assayOrdered By: Mickey Diehl on 04-07-2025 Chloride [Moles/Vol] 107 mmol/L 98-108 [facility] Comprehensive Metabolic Prof ilon 04-07-2025 Albumin [Mass/Vol] 3.6 g/dL Normal 3.5-5.0 [facility] Comment on above: Performed By: #### L 500.4050, L3410.9992 ####[facility] [address] [place], [address] Albumin/Globulin [Mass ratio] 1.1 {ratio} Normal 0.9-2.4 [facility] Comment on above: Performed By: #### L 500.4050, L3410.9992 ####[facility] [address] [place], [address] ALK PHOS 146 U/L High 35-104 [facility] Comment on above: Performed By: #### L 500.4050, L3410.9992 ####[facility] [address] [place], [address] ALT [Catalytic activity/Vol] 21 U/L Normal <=34 [facility] Comment on above: Performed By: #### L 500.4050, L3410.9992 ####[facility] [address] [place], [address] AST [Catalytic activity/Vol] 19 U/L Normal <=31 [facility] Comment on above: Performed By: #### L 500.4050, L3410.9992 ####[facility] [address] [place], [address] Bilirubin [Mass/Vol] 0.29 mg/dL Normal 0.00-1.30 [facility] Comment on above: Performed By: #### L 500.4050, L3410.9992 ####[facility] [address] [place], [address] BUN/CRE 7.7 RATIO Low 10-20 [facility] Comment on above: Performed By: #### L 500.4050, L3410.9992 ####[facility] [address] [place], [address] Calcium [Mass/Vol] 9.2 mg/dL Normal 7.6-11.0 [facility] Comment on above: Performed By: #### L 500.4050, L3410.9992 ####[facility] [address] [place], [address] Chloride [Moles/Vol] 107 mmol/L Normal 98-108 [facility] Comment on above: Performed By: #### L 500.4050, L3410.9992 ####[facility] [address] [place], [address] CO2 [Moles/Vol] 19.0 mmol/L Low 21.0-32.0 [facility] Comment on above: Performed By: #### L 500.4050, L3410.9992 ####[facility] [address] [place], [address] Creatinine [Mass/Vol] 0.58 mg/dL Low 0.70-1.20 [facility] Comment on above: Performed By: #### L 500.4050, L3410.9992 ####[facility] [address] [place], [address] GAP 12 Normal 5-15 [facility] Comment on above: Performed By: #### L 500.4050, L3410.9992 ####[facility] [address] [place], [address] GFR/1.73 sq M.predicted among non-blacks MDRD (S/P/Bld) [Vol rate/Area] 121 mL/min/{1.73_m2} Normal >60 [facility] Comment on above: Result Comment: mL/m in/1.73m2 CKD-EPI Creatinine Equation (2020) Performed By: #### L 500.4050, L3410.9992 ####[facility] [address] [place], [address] Globulin (S) [Mass/Vol] 3.4 g/dL Normal 2.2-4.2 [facility] Comment on above: Performed By: #### L 500.4050, L3410.9992 ####[facility] [address] [place], [address] Glucose [Mass/Vol] 85 mg/dL Normal 70-99 [facility] Comment on above: Performed By: #### L 500.4050, L3410.9992 ####[facility] [address] [place], [address] Potassium [Moles/Vol] 4.0 mmol/L Normal 3.3-5.1 [facility] Comment on above: Performed By: #### L 500.4050, L3410.9992 ####[facility] [address] [place], [address] Sodium [Moles/Vol] 137 mmol/L Normal 133-145 [facility] Comment on above: Performed By: #### L 500.4050, L3410.9992 ####[facility] [address] [place], [address] T PROT 6.9 g/dL Normal 5.9-8.4 [facility] Comment on above: Performed By: #### L 500.4050, L3410.9992 ####[facility] [address] [place], [address] Urea nitrogen [Mass/Vol] 4 mg/dL Normal 4-19 [facility] Comment on above: Performed By: #### L 500.4050, L3410.9992 ####[facility] [address] [place], [address] Glomerular filtration rate ( GFR) estimation/1.73 sq m using serum, plasma, or whole bOrdered By: Edel Diehl on 04-07-2025 GFR/1.73 sq M.predicted among non-blacks MDRD (S/P/Bld) [Vol rate/Area] 121 mL/min/{1.73_m2} >60 [facility] Comment on above: mL/min/1.73m2 CKD-EP I Creatinine Equation (2020) Laboratory - Chemistry and C hemistry - challengeOrdered By: Edel Diehl on 04-07-2025 AST [Catalytic activity/Vol] 19 U/L <32 [facility] [employer] Office Visit Reporton 04-07-2025 [employer] Office Visit Report Normal [facility] Potassium measurement (mass/ volume)Ordered By: Edel Diehl on 04-07-2025 Potassium (Unsp spec) [Mass/Vol] 4.0 mmol/L 3.3-5.1 [facility] Serum creatinine measurement (mass/volume)Ordered By: Edel Diehl on 04-07-2025 Creatinine [Mass/Vol] 0.58 mg/dL Low 0.70-1.20 [facility] Serum globulin measurementOr dered By: Edel Diehl on 04-07-2025 Globulin (S) [Mass/Vol] 3.4 g/dL 2.2-4.2 [facility] Serum glucose measurement (m ass/volume)Ordered By: Edel Diehl on 04-07-2025 Glucose [Mass/Vol] 85 mg/dL 70-99 [facility] Serum or plasma alanine jung otransferase (ALT) measurementOrdered By: Edel Diehl on 04-07-2025 ALT [Catalytic activity/Vol] 21 U/L <35 [facility] Serum or plasma albumin kenisha urement (mass/volume)Ordered By: Edel Diehl on 04-07-2025 Albumin [Mass/Vol] 3.6 g/dL 3.5-5.0 [facility] Serum or plasma albumin/glob ulin mass ratioOrdered By: Edel Diehl on 04-07-2025 Albumin/Globulin [Mass ratio] 1.1 {ratio} 0.9-2.4 [facility] Serum or plasma alkaline ct sphatase measurementOrdered By: Edel Diehl on 04-07-2025 ALP [Catalytic activity/Vol] 146 U/L High 35-104 [facility] Serum or plasma calcium kenisha urement (mass/volume)Ordered By: Edel Diehl on 04-07-2025 Calcium [Mass/Vol] 9.2 mg/dL 7.6-11.0 [facility] Serum or plasma urea nitroge n measurement (mass/volume)Ordered By: Edel Diehl on 04-07-2025 Urea nitrogen [Mass/Vol] 4 mg/dL 4-19 [facility] Sodium levelOrdered By: Kellen Diehl on 04-07-2025 Sodium [Moles/Vol] 137 mmol/L 133-145 [facility] Total proteinOrdered By: Rachel Diehl on 04-07-2025 Protein [Mass/Vol] 6.9 g/dL 5.9-8.4 [facility] Laboratory - Chemistry and C hemistry - challengeOrdered By: Edel Diehl on 03-26-2025 Glucose Ql (U) Negative [facility] Laboratory - UrinalysisOrder ed By: Edel Diehl on 03-26-2025 Protein Ql (U) Negative [facility] [employer] Office Visit Reporton 03-26-2025 [employer] Office Visit Report Normal [facility] Genital Culture Comprehensiv tracy 03-12-2025 VAC Reason for Exam: contractions No Gardnerella, Neisseria or beta-hemolytic Streptococcus isolated. Presumptive C albicans Amount Growth 2+ Normal [facility] Comment on above: Performed By: #### M 100.3200, M1.1999 ####[facility] [address] [place], [place], [address] Gram Stainon 03-10-2025 GS Reason for Exam: contractions Gram Stain 3+ Gram positive rods 1+ White Blood Cells No Gram negative diplococci Score = 1 Interpretation: 0-3 Normal, 4-6 Intermediate, 7-10 Positive BV Normal [facility] Comment on above: Performed By: #### M 100.3200, M100.1999 ####[facility] [address] [place], [place], [address] Gram stainOrdered By: Ronda Diehl on 03-10-2025 Microscopic observation Gram stain Nom (Unsp spec) [facility] Laboratory - Chemistry and C hemistry - challengeOrdered By: Edel Diehl on 03-10-2025 Glucose Ql (U) Negative [facility] Laboratory - UrinalysisOrder ed By: Edel Diehl on 03-10-2025 Protein Ql (U) Negative [facility] [employer] Office Visit Reporton 03-10-2025 [employer] [employer] Office Visit Report Normal [facility] Gestational GTT 3HR 100gon 0 03-05-2025 GEST GTT 100gm Normal [facility] Comment on above: Order Comment: Y Result Comment: FAST ING 85 Col: 03/05/25 0700GLUCOSE TOLERANCE TEST FOR Reference Interval GESTATIONAL DIABETES Fasting <105 mg/dL 1 hour <190 mg/dl 2 hour <165 mg/dl 3 hour <145 mg/dl 1 HR GLU 150 Col: 03/05/25 0829 2 HR GLU 148 Col: 03/05/25 0926 3 HR GLU 60 Col: 03/05/25 1029 Performed By: #### L 500.4710 ####[facility] [address] [place], [address] Quantitative serum or plasma 3 hour gestational glucose tolerance panelOrdered By: Kiley Jain on 03-05-2025 Glucose tolerance 3 hours gestational panel See comment [facility] Comment on above: FASTING 85 Col: 0603/24 [...] Auto (Unsp spec) [#/Vol] 2.26 10*3/uL 0.83-4.51 [facility] Absolute neutrophil countOrd ered By: Edel Diehl on 02-26-2025 Neutrophils (Bld) [#/Vol] 8.8 10*3/uL High 2.0-7.7 [facility] Automated lymphocyte count a s percentage of total leukocytesOrdered By: Edel Diehl on 02-26-2025 Lymphocytes/100 WBC Auto (Unsp spec) 19.1 % 19-41 [facility] Basophil percentageOrdered B y: Edel Diehl on 02-26-2025 Basophils/100 WBC (Bld) 0.3 % 0-1 [facility] CBC W/Diff, Automatedon 01-30 0-2024 Absolute Lymph 2.26 X10 3/uL Normal 0.83-4.51 [facility] Comment on above: Performed By: #### L 501.0250, L100.0100, L3890.6006, BTS, L509.8002 ####[facility] [address] [place], [address] Absolute Neut 8.8 X10 3/uL High 2.0-7.7 [facility] Comment on above: Performed By: #### L 501.0250, L100.0100, L3890.6006, BTS, L509.8002 ####[facility] [address] [place], [address] Basophils/100 WBC (Bld) 0.3 % Normal 0-1 [facility] Comment on above: Performed By: #### L 501.0250, L100.0100, L3890.6006, BTS, L509.8002 ####[facility] [address] [place], [address] Eosinophils/100 WBC (Bld) 1.0 % Normal 0-5 [facility] Comment on above: Performed By: #### L 501.0250, L100.0100, L3890.6006, BTS, L509.8002 ####[facility] [address] [place], [address] Erythrocyte distribution width (RBC) [Ratio] 13.5 % Normal 11.6-14.6 [facility] Comment on above: Performed By: #### L 501.0250, L100.0100, L3890.6006, BTS, L509.8002 ####[facility] [address] [place], [address] Hematocrit (Bld) [Volume fraction] 37.5 % Normal 37-47 [facility] Comment on above: Performed By: #### L 501.0250, L100.0100, L3890.6006, BTS, L509.8002 ####[facility] [address] [place], [address] Hemoglobin (Bld) [Mass/Vol] 12.7 g/dL Normal 12.0-15.0 [facility] Comment on above: Performed By: #### L 501.0250, L100.0100, L3890.6006, BTS, L509.8002 ####[facility] [address] [place], [address] IG% 0.800 Normal 0.0-0.9 [facility] Comment on above: Result Comment: IG% - Immature Granulocytes (promyelocytes, myelocytes andmetamyelocytes) > 1% indicates that a LEFT SHIFT is Present. Performed By: #### L 501.0250, L100.0100, L3890.6006, BTS, L509.8002 ####[facility] [address] [place], [address] Lymphocytes/100 WBC (Bld) 19.1 % Normal 19-41 [facility] Comment on above: Performed By: #### L 501.0250, L100.0100, L3890.6006, BTS, L509.8002 ####[facility] [address] [place], [address] MCH (RBC) [Entitic mass] 29.7 pg Normal 27.0-32.0 [facility] Comment on above: Performed By: #### L 501.0250, L100.0100, L3890.6006, BTS, L509.8002 ####[facility] [address] [place], [address] MCHC (RBC) [Mass/Vol] 33.9 g/dL Normal 32-36 [facility] Comment on above: Performed By: #### L 501.0250, L100.0100, L3890.6006, BTS, L509.8002 ####[facility] [address] [place], [address] MCV (RBC) [Entitic vol] 87.6 fL Normal 81-99 [facility] Comment on above: Performed By: #### L 501.0250, L100.0100, L3890.6006, BTS, L509.8002 ####[facility] [address] [place], [address] Monocytes/100 WBC (Bld) 4.0 % Normal 0-10 [facility] Comment on above: Performed By: #### L 501.0250, L100.0100, L3890.6006, BTS, L509.8002 ####[facility] [address] [place], [address] Neutrophils/100 WBC (Bld) 74.8 % High 47-70 [facility] Comment on above: Performed By: #### L 501.0250, L100.0100, L3890.6006, BTS, L509.8002 ####[facility] [address] [place], [address] Nucleated RBC (Bld) [#/Vol] 0 10*3/uL Normal 0-5 [facility] Comment on above: Performed By: #### L 501.0250, L100.0100, L3890.6006, BTS, L509.8002 ####[facility] [address] [place], [address] Platelet mean volume (Bld) [Entitic vol] 9.5 fL Normal 6.2-12.0 [facility] Comment on above: Performed By: #### L 501.0250, L100.0100, L3890.6006, BTS, L509.8002 ####[facility] [address] [place], [address] Platelets (Bld) [#/Vol] 300 10*3/uL Normal 150-450 [facility] Comment on above: Performed By: #### L 501.0250, L100.0100, L3890.6006, BTS, L509.8002 ####[facility] [address] [place], [address] RBC (Bld) [#/Vol] 4.28 10*6/uL Normal 4.2-5.4 [facility] Comment on above: Performed By: #### L 501.0250, L100.0100, L3890.6006, BTS, L509.8002 ####[facility] [address] [place], [address] RDW SD 42.8 fl Normal 35.1-43.9 [facility] Comment on above: Performed By: #### L 501.0250, L100.0100, L3890.6006, BTS, L509.8002 ####[facility] [address] [place], [address] WBC (Bld) [#/Vol] 11.8 10*3/uL High 4.4-11.0 [facility] Comment on above: Performed By: #### L 501.0250, L100.0100, L3890.6006, BTS, L509.8002 ####[facility] [address] [place], [address] Eosinophil percentageOrdered By: Edel Diehl on 02-26-2025 Eosinophils/100 WBC (Bld) 1.0 % 0-5 [facility] Erythrocyte distribution wid th ratioOrdered By: Edel Diehl on 02-26-2025 Erythrocyte distribution width (RBC) [Ratio] 13.5 % 11.6-14.6 [facility] Erythrocyte distribution wid th standard deviationOrdered By: Edel Diehl on 02-26-2025 Erythrocyte distribution width (RBC) [Ratio] 42.8 fl 35.1-43.9 [facility] Glucose Challenge Gest 1H 50 trini 02-26-2025 GLU GEST 50g 1H 172 mg/dL High 70-140 [facility] Comment on above: Performed By: #### L 501.0250, L100.0100, L3890.6006, BTS, L509.8002 ####[facility] [address] [place], [address] Glucose measurement at 2 haven rs post-dose gestational glucose tolerance testOrdered By: Edel Diehl on 02-26-2025 Glucose [Mass/Vol] 172 mg/dL High 70-140 [facility] HIVon 02-26-2025 HIV Non-Reactive Normal Nonreactive [facility] Comment on above: Result Comment: Non- ReactiveReactiveRepeatedly reactive samples must be confirmed according [facility] recommended confirmatory algorithms. The subresults foreither HIVAG or AHIV can be used as an aid in the selectionof the confirmation algorithm for reactive samples.Send out specimens with Reactive results to [facility] forconfirmation.Order the HIV antibody detection and differentiation:#[id number] Performed By: #### L 501.0250, L100.0100, L3890.6006, BTS, L509.8002 ####[facility] [address] [place], [place], [address] Hematocrit Auto (Bld) [Volum e fraction]Ordered By: Edel Diehl on 02-26-2025 Hematocrit (Bld) [Volume fraction] 37.5 % 37-47 [facility] Hemoglobin measurementOrdere d By: Edel Diehl on 02-26-2025 Hemoglobin (Bld) [Mass/Vol] 12.7 g/dL 12.0-15.0 [facility] Immature granulocytes/100 WB C Auto (Bld)Ordered By: Edel Diehl on 02-26-2025 Immature granulocytes/100 WBC (Bld) 0.800 % 0.0-0.9 [facility] Comment on above: IG% - Immature Granu locytes (promyelocytes, myelocytes and metamyelocytes) > 1% indicates that a LEFT SHIFT is Present. Laboratory - Chemistry and C hemistry - challengeOrdered By: Apple Lao on 02-26-2025 Glucose Ql (U) Negative [facility] Laboratory - UrinalysisOrder ed By: Apple Lao on 02-26-2025 Protein Ql (U) Negative [facility] MCV (mean corpuscular volume ) determinationOrdered By: Edel Diehl on 02-26-2025 MCV (RBC) [Entitic vol] 87.6 fL 81-99 [facility] Mean corpuscular hemoglobin (MCH) determinationOrdered By: Edel Diehl on 02-26-2025 MCH (RBC) [Entitic mass] 29.7 pg 27.0-32.0 [facility] Mean corpuscular hemoglobin concentration (MCHC) determinationOrdered By: Edel Diehl on 02-26-2025 MCHC (RBC) [Mass/Vol] 33.9 g/dL 32-36 [facility] Mean platelet volume determi nationOrdered By: Edel Diehl on 02-26-2025 Platelet mean volume (Bld) [Entitic vol] 9.5 fL 6.2-12.0 [facility] Monocyte percentageOrdered B y: Edel Diehl on 02-26-2025 Monocytes/100 WBC (Bld) 4.0 % 0-10 [facility] Neutrophil percentageOrdered By: Edel Diehl on 02-26-2025 Neutrophils/100 WBC (Bld) 74.8 % High 47-70 [facility] No Panel InformationOrdered By: Edel Diehl on 02-26-2025 HIV (1&2) Antibody Non-Reactive Nonreactive [facility] Comment on above: Non-ReactiveReactive Repeatedly reactive samples must be confirmed according to CDC recommended confirmatory algorithms. The subresults for either HIVAG or AHIV can be used as an aid in the selection of the confirmation algorithm for reactive samples.Send out specimens with Reactive results to [facility] for confirmation.Order the HIV antibody detection and differentiation: #[id number] Nucleated red blood cell per centageOrdered By: Edel Diehl on 02-26-2025 Nucleated RBC/100 WBC (Bld) [Ratio] 0 % 0-5 [facility] [employer] Office Visit Reporton 02-26-2025 [employer] Office Visit Report Normal [facility] Platelet countOrdered By: Mickey colenegro Shanita on 02-26-2025 Platelets (Bld) [#/Vol] 300 10*3/uL 150-450 [facility] RBC Auto (Bld) [#/Vol]Ordere d By: Edel Diehl on 02-26-2025 RBC (Bld) [#/Vol] 4.28 10*6/uL 4.2-5.4 [facility] Syphilis Antibodieson 2024 Syphilis Abs Non-Reactive Normal Nonreactive [facility] Comment on above: Performed By: #### L 501.0250, L100.0100, L3890.6006, BTS, L509.8002 ####[facility] [address] [place], [place], [address] Type AND Screenon 02-26-2025 ABO and Rh group Nom (Bld) Blood group B Rh(D) negative Normal [facility] Comment on above: Order Comment: PN Performed By: #### L 501.0250, L100.0100, L3890.6006, BTS, L509.8002 ####[facility] [address] [place], [place], [id number] White blood cell (WBC) count Ordered By: Edel Diehl on 02-26-2025 WBC (Bld) [#/Vol] 11.8 10*3/uL High 4.4-11.0 [facility] Progress Noteon 02-23-2025 Recreational Therapist Authentication Interface Message Text MEDICAL DECISION MAKING: [...] concerns arise Patient was seen in [facility] cardiology clinic today at the request [...] there are questions regarding these findings. Normal [facility] Office Visit Reporton 01-29-2025 [facility] Office Visit Report Normal [facility] Laboratory - Chemistry and C hemistry - challengeOrdered By: Apple Lao on 01-01-2025 Glucose Ql (U) Negative [facility] Laboratory - UrinalysisOrder ed By: Apple Lao on 01-01-2025 Protein Ql (U) Negative [facility] Visit Reporton 01-01-2025 [facility] Office Visit Report Normal [facility] Office Visit Reporton 12-03-2024 [facility] Office Visit Report Normal [facility] 12 Lead EKGon 11-10-2024 12 Lead EKG Normal [facility] Absolute lymphocyte countOrd ered By: Ld Fermin on 11-10-2024 Lymphocytes Auto (Unsp spec) [#/Vol] 3.59 10*3/uL 0.83-4.51 [facility] Absolute neutrophil countOrd ered By: Ld Fermin on 11-10-2024 Neutrophils (Bld) [#/Vol] 9.3 10*3/uL High 2.0-7.7 [facility] Automated lymphocyte count a s percentage of total leukocytesOrdered By: Ld Huio on 11-10-2024 Lymphocytes/100 WBC Auto (Unsp spec) 25.8 % 19-41 [facility] Basic Metabolic Profile (BMP )on 11-10-2024 BUN/CRE 8.8 RATIO Low 10-20 [facility] Comment on above: Performed By: #### L 100.0100, L500.2500 ####[facility] [address] [place], [address] CA,Total 9.9 mg/dL Normal 8.5-10.1 [facility] Comment on above: Performed By: #### L 100.0100, L500.2500 ####[facility] [address] [place], [address] Chloride [Moles/Vol] 108 mmol/L High 98-107 [facility] Comment on above: Performed By: #### L 100.0100, L500.2500 ####[facility] [address] [place], [address] CO2 [Moles/Vol] 24.0 mmol/L Normal 21.0-32.0 [facility] Comment on above: Performed By: #### L 100.0100, L500.2500 ####[facility] [address] [place], [address] Creatinine [Mass/Vol] 0.57 mg/dL Normal 0.55-1.02 [facility] Comment on above: Result Comment: The validity of the calculated GFR GFRAA in patients over70 years has not been determined. Clinical correlation isessential. Performed By: #### L 100.0100, L500.2500 ####[facility] [address] [place], [address] ECRCL 167.72 ml/min Normal [facility] Comment on above: Performed By: #### L 100.0100, L500.2500 ####[facility] [address] [place], [address] EST GFR - AA 157 mL/min Normal >60 [facility] Comment on above: Result Comment: Afri can Palauan GFR Calc Performed By: #### L 100.0100, L500.2500 ####[facility] [address] [place], [address] GAP 8 Normal 5-15 [facility] Comment on above: Performed By: #### L 100.0100, L500.2500 ####[facility] [address] [place], [address] GFR/1.73 sq M.predicted among non-blacks MDRD (S/P/Bld) [Vol rate/Area] 129 mL/min/{1.73_m2} Normal >60 [facility] Comment on above: Result Comment: Non- GFR Calc Performed By: #### L 100.0100, L500.2500 ####[facility] [address] [place], [address] Glucose [Mass/Vol] 86 mg/dL Normal 74-106 [facility] Comment on above: Performed By: #### L 100.0100, L500.2500 ####[facility] [address] [place], [address] Potassium [Moles/Vol] 3.4 mmol/L Low 3.5-5.1 [facility] Comment on above: Performed By: #### L 100.0100, L500.2500 ####[facility] [address] [place], [address] Sodium [Moles/Vol] 140 mmol/L Normal 136-145 [facility] Comment on above: Performed By: #### L 100.0100, L500.2500 ####[facility] [address] [place], [address] Urea nitrogen [Mass/Vol] 5 mg/dL Low 7-18 [facility] Comment on above: Performed By: #### L 100.0100, L500.2500 ####[facility] [address] [place], [address] Basophil percentageOrdered B y: Ld Fermin on 11-10-2024 Basophils/100 WBC (Bld) 0.5 % 0-1 [facility] Blood urea nitrogen (BUN)/cr eatinine ratioOrdered By: Ld Fermin on 11-10-2024 Urea nitrogen/Creatinine [Mass ratio] 8.8 mg/mg Low 10-20 [facility] CBC W/Diff, Automatedon - Absolute Lymph 3.59 X10 3/uL Normal 0.83-4.51 [facility] Comment on above: Performed By: #### L 100.0100, L500.2500 ####[facility] [address] [place], [address] Absolute Neut 9.3 X10 3/uL High 2.0-7.7 [facility] Comment on above: Performed By: #### L 100.0100, L500.2500 ####[facility] [address] [place], [address] Basophils/100 WBC (Bld) 0.5 % Normal 0-1 [facility] Comment on above: Performed By: #### L 100.0100, L500.2500 ####[facility] [address] [place], [address] Eosinophils/100 WBC (Bld) 1.2 % Normal 0-5 [facility] Comment on above: Performed By: #### L 100.0100, L500.2500 ####[facility] [address] [place], [address] Erythrocyte distribution width (RBC) [Ratio] 12.8 % Normal 11.6-14.6 [facility] Comment on above: Performed By: #### L 100.0100, L500.2500 ####[facility] [address] [place], [address] Hematocrit (Bld) [Volume fraction] 43.6 % Normal 37-47 [facility] Comment on above: Performed By: #### L 100.0100, L500.2500 ####[facility] [address] [place], [address] Hemoglobin (Bld) [Mass/Vol] 14.8 g/dL Normal 12.0-15.0 [facility] Comment on above: Performed By: #### L 100.0100, L500.2500 ####[facility] [address] [place], [address] IG% 0.600 Normal 0.0-0.9 [facility] Comment on above: Result Comment: IG% - Immature Granulocytes (promyelocytes, myelocytes andmetamyelocytes) > 1% indicates that a LEFT SHIFT is Present. Performed By: #### L 100.0100, L500.2500 ####[facility] [address] [place], [address] Lymphocytes/100 WBC (Bld) 25.8 % Normal 19-41 [facility] Comment on above: Performed By: #### L 100.0100, L500.2500 ####[facility] [address] [place], [address] MCH (RBC) [Entitic mass] 28.8 pg Normal 27.0-32.0 [facility] Comment on above: Performed By: #### L 100.0100, L500.2500 ####[facility] [address] [place], [address] MCHC (RBC) [Mass/Vol] 33.9 g/dL Normal 32-36 [facility] Comment on above: Performed By: #### L 100.0100, L500.2500 ####[facility] [address] [place], [address] MCV (RBC) [Entitic vol] 84.8 fL Normal 81-99 [facility] Comment on above: Performed By: #### L 100.0100, L500.2500 ####[facility] [address] [place], [address] Monocytes/100 WBC (Bld) 5.1 % Normal 0-10 [facility] Comment on above: Performed By: #### L 100.0100, L500.2500 ####[facility] [address] [place], [address] Neutrophils/100 WBC (Bld) 66.8 % Normal 47-70 [facility] Comment on above: Performed By: #### L 100.0100, L500.2500 ####[facility] [address] [place], [address] Nucleated RBC (Bld) [#/Vol] 0 10*3/uL Normal 0-5 [facility] Comment on above: Performed By: #### L 100.0100, L500.2500 ####[facility] [address] [place], [address] Platelet mean volume (Bld) [Entitic vol] 9.3 fL Normal 6.2-12.0 [facility] Comment on above: Performed By: #### L 100.0100, L500.2500 ####[facility] [address] [place], [address] Platelets (Bld) [#/Vol] 373 10*3/uL Normal 150-450 [facility] Comment on above: Performed By: #### L 100.0100, L500.2500 ####[facility] [address] [place], [address] RBC (Bld) [#/Vol] 5.14 10*6/uL Normal 4.2-5.4 [facility] Comment on above: Performed By: #### L 100.0100, L500.2500 ####[facility] [address] [place], [address] RDW SD 39.5 fl Normal 35.1-43.9 [facility] Comment on above: Performed By: #### L 100.0100, L500.2500 ####[facility] [address] [place], [address] WBC (Bld) [#/Vol] 13.9 10*3/uL High 4.4-11.0 [facility] Comment on above: Performed By: #### L 100.0100, L500.2500 ####[facility] [address] [place], [address] Carbon dioxide measurementOr dered By: Ld Fermin on 11-10-2024 CO2 [Moles/Vol] 24.0 mmol/L 21.0-32.0 [facility] Chloride measurementOrdered By: Ld Fermin on 11-10-2024 Chloride [Moles/Vol] 108 mmol/L High 98-107 [facility] D-Dimer Quantitative (DVT/PE )on 11-10-2024 D-DIMER QUANT < 0.27 Low 0.27-0.49 [facility] Comment on above: Result Comment: NORM AL D-Dimer level (<0.50) indicates no DVT or PE. Performed By: #### L 300.8000 ####[facility] [address] [place], [address] Emergency Department Summary on 11-10-2024 Emergency Department Summary Normal [facility] Eosinophil percentageOrdered By: Ld Fermin on 11-10-2024 Eosinophils/100 WBC (Bld) 1.2 % 0-5 [facility] Erythrocyte distribution wid th ratioOrdered By: Ldondina Fermin on 11-10-2024 Erythrocyte distribution width (RBC) [Ratio] 12.8 % 11.6-14.6 [facility] Erythrocyte distribution wid th standard deviationOrdered By: [facility] on 11-10-2024 Erythrocyte distribution width (RBC) [Ratio] 39.5 fl 35.1-43.9 [facility] Glomerular filtration rate ( GFR) estimationOrdered By: Ldondina Fermin on 11-10-2024 GFR/1.73 sq M.predicted among non-blacks MDRD (S/P/Bld) [Vol rate/Area] 129 mL/min/{1.73_m2} >60 [facility] Comment on above: Non- GFR Calc Glucose measurementOrdered B y: Ldondina Fermin on 11-10-2024 Glucose [Mass/Vol] 86 mg/dL 74-106 [facility] Hematocrit Auto (Bld) [Volum e fraction]Ordered By: [facility] 11-10-2024 Hematocrit (Bld) [Volume fraction] 43.6 % 37-47 [facility] Hemoglobin measurementOrdere d By: [facility] Fermin on 11-10-2024 Hemoglobin (Bld) [Mass/Vol] 14.8 g/dL 12.0-15.0 [facility] Immature granulocytes/100 WB C Auto (Bld)Ordered By: [facility] on 11-10-2024 Immature granulocytes/100 WBC (Bld) 0.600 % 0.0-0.9 [facility] Comment on above: IG% - Immature Granu locytes (promyelocytes, myelocytes and metamyelocytes) > 1% indicates that a LEFT SHIFT is Present. MCV (mean corpuscular volume ) determinationOrdered By: [facility] on 11-10-2024 MCV (RBC) [Entitic vol] 84.8 fL 81-99 [facility] Mean corpuscular hemoglobin (MCH) determinationOrdered By: [facility] 11-10-2024 MCH (RBC) [Entitic mass] 28.8 pg 27.0-32.0 [facility] Mean corpuscular hemoglobin concentration (MCHC) determinationOrdered By: [facility] 11-10-2024 MCHC (RBC) [Mass/Vol] 33.9 g/dL 32-36 [facility] Mean platelet volume determi nationOrdered By: Ld Fermin on 11-10-2024 Platelet mean volume (Bld) [Entitic vol] 9.3 fL 6.2-12.0 [facility] Monocyte percentageOrdered B y: Ld Fermin on 11-10-2024 Monocytes/100 WBC (Bld) 5.1 % 0-10 [facility] Neutrophil percentageOrdered By: Ld Fermin on 11-10-2024 Neutrophils/100 WBC (Bld) 66.8 % 47-70 [facility] Nucleated red blood cell per centageOrdered By: Ldondina Fermin on 11-10-2024 Nucleated RBC/100 WBC (Bld) [Ratio] 0 % 0-5 [facility] Platelet countOrdered By: Pedro Fermin on 11-10-2024 Platelets (Bld) [#/Vol] 373 10*3/uL 150-450 [facility] Potassium measurementOrdered By: Ld Fermin on 11-10-2024 Potassium [Moles/Vol] 3.4 mmol/L Low 3.5-5.1 [facility] RBC Auto (Bld) [#/Vol]Ordere d By: Ld Fermin on 11-10-2024 RBC (Bld) [#/Vol] 5.14 10*6/uL 4.2-5.4 [facility] Serum anion gap measurementO rdered By: Ld Fermin on 11-10-2024 Anion gap [Moles/Vol] 8 mmol/L 5-15 [facility] Serum or plasma calcium kenisha urement (mass/volume)Ordered By: Ld Fermin on 11-10-2024 Calcium [Mass/Vol] 9.9 mg/dL 8.5-10.1 [facility] Serum or plasma creatinine m easurement (mass/volume)Ordered By: Ldondina Fermin on 11-10-2024 Creatinine [Mass/Vol] 0.57 mg/dL 0.55-1.02 [facility] Comment on above: The validity of the calculated GFR & GFRAA in patients over 70 years has not been determined. Clinical correlation is essential. Serum or plasma urea nitroge n measurement (mass/volume)Ordered By: Ld Fermin on 11-10-2024 Urea nitrogen [Mass/Vol] 5 mg/dL Low 7-18 [facility] Sodium levelOrdered By: Ld Fermin on 11-10-2024 Sodium [Moles/Vol] 140 mmol/L 136-145 [facility] White blood cell (WBC) count Ordered By: Ld Fermin on 11-10-2024 WBC (Bld) [#/Vol] 13.9 10*3/uL High 4.4-11.0 [facility] Laboratory - Chemistry and C hemistry - challengeOrdered By: Edel Diehl on 11-05-2024 Glucose Ql (U) Negative [facility] Laboratory - UrinalysisOrder ed By: Edel Diehl on 11-05-2024 Protein Ql (U) Negative [facility] [employer] Office Visit Reporton 11-05-2024 [employer]er Office Visit Report Normal [facility] HIV - WCHon 10-13-2024 HIV Non-Reactive Normal Nonreactive [facility] Comment on above: Order Comment: Reaso n for Exam: Performed By: #### L 3410.9999, L501.9985, BTS, L3890.6100, L501.9520, L3890.6005, L3890.6300, L506.0400, L100.0100, L509.4005, L509.8000 ####[facility] [address] [place], [address] L3410.9999on 10-13-2024 [facility] Misc. COMMENT Normal . [facility] Comment on above: Order Comment: [id number] 4TSH RECEPTOR AB SERUM RF Result Comment: Test Ordered: [id number] Thyrotropin Receptor Ab, SerumThyrotropin Receptor Ab, Serum <1.10 IU/L Reference Range: 0.00-1.75Performed at: - [facility] [address] [id number] Director: Sue Martinez MD, Phone: [phone] at: [facility] [place], [place] [id number] Director: Huan Kuhn PhD, Phone: [phone] Performed By: #### L 3410.9999, L501.9985, BTS, L3890.6100, L501.9520, L3890.6005, L3890.6300, L506.0400, L100.0100, L509.4005, L509.8000 ####[facility] [address] [place], [address] Chlamydia/GC CONCHITA aptimaon CHLAMY,NUC ACID Negative Normal Negative [facility] Comment on above: Performed By: #### L 7000.1800, M100.2200, L505.5000 ####[facility] [address] [place], [address] GC BY NUC ACID Negative Normal Negative [facility] Comment on above: Result Comment: Perf ormed at: =G - [facility] [address] [id number] Director: Ary Grider MD, Phone: [phone] Performed By: #### L 7000.1800, M100.2200, L505.5000 ####[facility] [address] [place], [address] Hepatitis B Surface Antigeno n 10-12-2024 HEP B Surf Ag Non-Reactive Normal Nonreactive [facility] Comment on above: Order Comment: Reaso n for Exam: Performed By: #### L 3410.9999, L501.9985, BTS, L3890.6100, L501.9520, L3890.6005, L3890.6300, L506.0400, L100.0100, L509.4005, L509.8000 ####[facility] [address] [place], [address] Hepatitis C Antibodyon 10-12 Hepatitis C AB Non-Reactive Normal Nonreactive [facility] Comment on above: Order Comment: Reaso n for Exam: Result Comment: Non Reactive: < 0.8 Equivocal: >/= 0.8 to < 1.0 Reactive: >/= 1.0The CDC requires that a reactive/equivocal HCV antibodyresult be sent out for confirmation. HCV Quant by PCRtesting. Performed By: #### L 3410.9999, L501.9985, BTS, L3890.6100, L501.9520, L3890.6005, L3890.6300, L506.0400, L100.0100, L509.4005, L509.8000 ####[facility] [address] [place], [place], [address] L509.8000on 10-12-2024 Syphilis Abs Non-Reactive Normal [facility] Comment on above: Order Comment: Reaso n for Exam: Performed By: #### L 3410.9999, L501.9985, BTS, L3890.6100, L501.9520, L3890.6005, L3890.6300, L506.0400, L100.0100, L509.4005, L509.8000 ####[facility] [address] [place], [address] Rubella IgGon 10-12-2024 Rubella IgG Reactive Normal Nonreactive [facility] Comment on above: Order Comment: Reaso n for Exam: Result Comment: Anti body Results Interpretation of Immune Status Non Reactive Presumed Non-Immune Equivocal Equivocal Reactive Presumed Immune Performed By: #### L 3410.9999, L501.9985, BTS, L3890.6100, L501.9520, L3890.6005, L3890.6300, L506.0400, L100.0100, L509.4005, L509.8000 ####[facility] [address] [place], [place], [address] Urine Cultureon 10-12-2024 [facility] Mixed Gram Positive Organisms [place] Count 25,000-50,000 [facility] Mixed contaminants. Submit a new specimen if indicated. Normal [facility] Comment on above: Performed By: #### L 7000.1800, M100.2200, L505.5000 ####[facility] [address] [place], [address] CBC W/Diff, Automatedon 01- 0-2024 Absolute Lymph 2.85 X10 3/uL Normal 0.83-4.51 [facility] Comment on above: Performed By: #### L 3410.9999, L501.9985, BTS, L3890.6100, L501.9520, L3890.6005, L3890.6300, L506.0400, L100.0100, L509.4005, L509.8000 ####[facility] [address] [place], [address] Absolute Neut 10.8 X10 3/uL High 2.0-7.7 [facility] Comment on above: Performed By: #### L 3410.9999, L501.9985, BTS, L3890.6100, L501.9520, L3890.6005, L3890.6300, L506.0400, L100.0100, L509.4005, L509.8000 ####[facility] [address] [place], [address] Basophils/100 WBC (Bld) 0.5 % Normal 0-1 [facility] Comment on above: Performed By: #### L 3410.9999, L501.9985, BTS, L3890.6100, L501.9520, L3890.6005, L3890.6300, L506.0400, L100.0100, L509.4005, L509.8000 ####[facility] [address] [place], [address] Eosinophils/100 WBC (Bld) 1.4 % Normal 0-5 [facility] Comment on above: Performed By: #### L 3410.9999, L501.9985, BTS, L3890.6100, L501.9520, L3890.6005, L3890.6300, L506.0400, L100.0100, L509.4005, L509.8000 ####[facility] [address] [place], [place], [phone] Erythrocyte distribution width (RBC) [Ratio] 12.8 % Normal 11.6-14.6 [facility] Comment on above: Performed By: #### L 3410.9999, L501.9985, BTS, L3890.6100, L501.9520, L3890.6005, L3890.6300, L506.0400, L100.0100, L509.4005, L509.8000 ####[facility] [address] [place], [phone]) Hematocrit (Bld) [Volume fraction] 41.2 % Normal 37-47 [facility] Comment on above: Performed By: #### L 3410.9999, L501.9985, BTS, L3890.6100, L501.9520, L3890.6005, L3890.6300, L506.0400, L100.0100, L509.4005, L509.8000 ####[facility] [address] [place], [place], [phone](357) Hemoglobin (Bld) [Mass/Vol] 14.1 g/dL Normal 12.0-15.0 [facility] Comment on above: Performed By: #### L 3410.9999, L501.9985, BTS, L3890.6100, L501.9520, L3890.6005, L3890.6300, L506.0400, L100.0100, L509.4005, L509.8000 ####[facility] [address] [place], [place], [phone]) IG% 0.500 Normal 0.0-0.9 [facility] Comment on above: Result Comment: IG% - Immature Granulocytes (promyelocytes, myelocytes andmetamyelocytes) > 1% indicates that a LEFT SHIFT is Present. Performed By: #### L 3410.9999, L501.9985, BTS, L3890.6100, L501.9520, L3890.6005, L3890.6300, L506.0400, L100.0100, L509.4005, L509.8000 ####[facility] [address] [place], [address] Lymphocytes/100 WBC (Bld) 19.2 % Normal 19-41 [facility] Comment on above: Performed By: #### L 3410.9999, L501.9985, BTS, L3890.6100, L501.9520, L3890.6005, L3890.6300, L506.0400, L100.0100, L509.4005, L509.8000 ####[facility] [address] [facility] [place], [address] MCH (RBC) [Entitic mass] 28.8 pg Normal 27.0-32.0 [facility] Comment on above: Performed By: #### L 3410.9999, L501.9985, BTS, L3890.6100, L501.9520, L3890.6005, L3890.6300, L506.0400, L100.0100, L509.4005, L509.8000 ####[facility] [address] [place], [address] MCHC (RBC) [Mass/Vol] 34.2 g/dL Normal 32-36 [facility] Comment on above: Performed By: #### L 3410.9999, L501.9985, BTS, L3890.6100, L501.9520, L3890.6005, L3890.6300, L506.0400, L100.0100, L509.4005, L509.8000 ####[facility] [address] [place], [address] MCV (RBC) [Entitic vol] 84.1 fL Normal 81-99 [facility] Comment on above: Performed By: #### L 3410.9999, L501.9985, BTS, L3890.6100, L501.9520, L3890.6005, L3890.6300, L506.0400, L100.0100, L509.4005, L509.8000 ####[facility] [address] [place], [address] Monocytes/100 WBC (Bld) 5.2 % Normal 0-10 [facility] Comment on above: Performed By: #### L 3410.9999, L501.9985, BTS, L3890.6100, L501.9520, L3890.6005, L3890.6300, L506.0400, L100.0100, L509.4005, L509.8000 ####[facility] [address] [place], [address] Neutrophils/100 WBC (Bld) 73.2 % High 47-70 [facility] Comment on above: Performed By: #### L 3410.9999, L501.9985, BTS, L3890.6100, L501.9520, L3890.6005, L3890.6300, L506.0400, L100.0100, L509.4005, L509.8000 ####[facility] [address] [place], [address] Nucleated RBC (Bld) [#/Vol] 0 10*3/uL Normal 0-5 [facility] Comment on above: Performed By: #### L 3410.9999, L501.9985, BTS, L3890.6100, L501.9520, L3890.6005, L3890.6300, L506.0400, L100.0100, L509.4005, L509.8000 ####[facility] [address] [place], [address] Platelet mean volume (Bld) [Entitic vol] 9.1 fL Normal 6.2-12.0 [facility] Comment on above: Performed By: #### L 3410.9999, L501.9985, BTS, L3890.6100, L501.9520, L3890.6005, L3890.6300, L506.0400, L100.0100, L509.4005, L509.8000 ####[facility] [address] [place], [address] Platelets (Bld) [#/Vol] 417 10*3/uL Normal 150-450 [facility] Comment on above: Performed By: #### L 3410.9999, L501.9985, BTS, L3890.6100, L501.9520, L3890.6005, L3890.6300, L506.0400, L100.0100, L509.4005, L509.8000 ####[facility] [address] [place], [address] RBC (Bld) [#/Vol] 4.90 10*6/uL Normal 4.2-5.4 [facility] Comment on above: Performed By: #### L 3410.9999, L501.9985, BTS, L3890.6100, L501.9520, L3890.6005, L3890.6300, L506.0400, L100.0100, L509.4005, L509.8000 ####[facility] [address] [place], [address] RDW SD 39.1 fl Normal 35.1-43.9 [facility] Comment on above: Performed By: #### L 3410.9999, L501.9985, BTS, L3890.6100, L501.9520, L3890.6005, L3890.6300, L506.0400, L100.0100, L509.4005, L509.8000 ####[facility] [address] [place], [place], [id number] WBC (Bld) [#/Vol] 14.8 10*3/uL High 4.4-11.0 [facility] Comment on above: Performed By: #### L 3410.9999, L501.9985, BTS, L3890.6100, L501.9520, L3890.6005, L3890.6300, L506.0400, L100.0100, L509.4005, L509.8000 ####[facility] [address] [place], [place], [id number] Hemoglobin A1con 10-09-2024 HbA1c (Bld) [Mass fraction] 5.2 % Normal 3.8-5.6 [facility] Comment on above: Result Comment: Norm al < 5.7 % Prediabetic 5.7 - 6.4 % Diabetic >or= 6.5 % Please note range changes. Performed By: #### L 3410.9999, L501.9985, BTS, L3890.6100, L501.9520, L3890.6005, L3890.6300, L506.0400, L100.0100, L509.4005, L509.8000 ####[facility] [address] [place], [place], [id number] [employer] [facility] Visit Reporton 10-09-2024 [employer] [employer] [facility] Visit Report Normal [facility] T4 Free Directon 10-09-2024 T4 FREE DIRECT 1.29 ng/dL Normal 0.76-1.46 [facility] Comment on above: Performed By: #### L 3410.9999, L501.9985, BTS, L3890.6100, L501.9520, L3890.6005, L3890.6300, L506.0400, L100.0100, L509.4005, L509.8000 ####[facility] [address] [place], [address] Thyroid Stim Hormone (TSH)on 10-09-2024 TSH 1.180 uIU/mL Normal 0.358-3.740 [facility] Comment on above: Performed By: #### L 3410.9999, L501.9985, BTS, L3890.6100, L501.9520, L3890.6005, L3890.6300, L506.0400, L100.0100, L509.4005, L509.8000 ####[facility] [address] [place], [address] Type AND Screenon 10-09-2024 Ab SCREEN GEL Negative Normal [facility] Comment on above: Order Comment: PN Performed By: #### L 3410.9999, L501.9985, BTS, L3890.6100, L501.9520, L3890.6005, L3890.6300, L506.0400, L100.0100, L509.4005, L509.8000 ####[facility] [address] [place], [address] Urine Drug Screen (VISTA)on 10-09-2024 AMPHETAMINES Negative Normal <1000 ng/mL [facility] Comment on above: Order Comment: UNK Performed By: #### L 7000.1800, M100.2200, L505.5000 ####[facility] [address] [place], [address] BARBITIURATES Negative Normal < 200 ng/mL [facility] Comment on above: Order Comment: UNK Performed By: #### L 7000.1800, M100.2200, L505.5000 ####[facility] [address] [place], [address] BENZODIAZIPINE Negative Normal < 200 ng/mL [facility] Comment on above: Order Comment: UNK Performed By: #### L 7000.1800, M100.2200, L505.5000 ####[facility] [address] [place], [address] COCAINE Negative Normal < 300 ng/mL [facility] Comment on above: Order Comment: UNK Performed By: #### L 7000.1800, M100.2200, L505.5000 ####[facility] [address] [place], [address] ECSTACY Negative Normal < 500 ng/mL [facility] Comment on above: Order Comment: UNK Performed By: #### L 7000.1800, M100.2200, L505.5000 ####[facility] [address] [place], [address] METHADONE Negative Normal < 300 ng/mL [facility] Comment on above: Order Comment: UNK Performed By: #### L 7000.1800, M100.2200, L505.5000 ####[facility] [address] [place], [address] OPIATES Negative Normal < 300 ng/mL [facility] Comment on above: Order Comment: UNK Performed By: #### L 7000.1800, M100.2200, L505.5000 ####[facility] [address] [place], [address] PCP Negative Normal < 25 ng/mL [facility] Comment on above: Order Comment: UNK Performed By: #### L 7000.1800, M100.2200, L505.5000 ####[facility] [address] [place], [address] THC Negative Normal < 50 ng/mL [facility] Comment on above: Order Comment: UNK Performed By: #### L 7000.1800, M100.2200, L505.5000 ####[facility] [address] [place], [address] VISTA UDS PH 6 Normal [facility] Comment on above: Order Comment: UNK Performed By: #### L 7000.1800, M100.2200, L505.5000 ####[facility] [address] [place], [address] Choriogonadotropin.beta subu niton 10-02-2024 [place] [address] m[IU]/mL High <5 U [facility] Comment on above: Order Comment: Total HCG measurement is performed using the Tutu Aubrey Access Immunoassay which detects intact HCG and free beta HCG subunit. This test is not indicated for use as a tumor marker. HCG testing is performed using a different test methodology at [facility] than other [facility]. Direct result comparison should only be [...] By: #### 3 4549-6 #### DWAYNE Nair ([id number]) [facility] ([facility]) [address] [place] [address] Estradiolon 10-02-2024 E2 [Mass/Vol] 506 pg/mL Normal [facility] Comment on above: Order Comment: REF V ALUESFOLLICULAR PHASE 20-144MID CYCLE 64-357LUTEAL PHASE 56-214POSTMENOPAUSE < 32PREPUBERTY < 20FEMALE 10-18Y 8-110MALE 10-18Y < 20ADULT MALE < 40 Performed By: #### 3 4549-6 #### DWAYNE Nair ([id number]) [facility] ([facility]) [id number] [place] [address] Progesteroneon 10-02-2024 Progesterone [Mass/Vol] 26.5 ng/mL Normal [facility] Comment on above: Result Comment: Ref Values Male <0.3- 1.2 Follicular Phase <0.3- 1.4 Luteal Phase 3.3-25.6 Mid-Luteal Phase 4.4-28.0 Postmenopausal <0.3- 0.7 Females: 1st Trimester 11.2- 90.0 2nd Trimester 25.6- 89.4 3RD Trimester 48.4-422.5 Patients receiving DHEA-S supplements may show false elevation of progesterone for results near 1.0 ng/mL. Contact laboratory at [phone] if alternative testing is needed. Performed By: #### 3 4549-6 #### DWAYNE Nair ([id number]) [facility] ([facility]) [address] [place] [address] US PELVIS OB TRANSABDOMINAL W TRANSVAGINAL UP TO 1ST TRIMESTERon 10-02-2024 US PELVIS OB TRANSABDOMINAL W TRANSVAGINAL UP TO 1ST TRIMESTER Interpreted By: Dyllan De Jesus, STUDY: US PELVIS OB TRANSABDOMINAL W TRANSVAGINAL UP TO 1ST TRIMESTER; 10/02/2024 9:55 am INDICATION: Signs/Symptoms:. COMPARISON: None. ACCESSION NUMBER(S): [id number] ORDERING CLINICIAN: LEVON BRAXTON TECHNIQUE: Multiple grayscale [...] De Jesus 10/02/2024 11:52 AM Dictation workstation: [id number] [facility] US Pelvis transvaginalon 1. Single live intrauterine . 2. Estimated gestational age: 6 weeks 2 days +/-3 days. MACRO: None Signed by: Dyllan De Jesus 10/02/2024 11:52 AM Dictation workstation: [id number] [facility] Interpreted By: Dyllan Ferrara, STUDY: US PELVIS OB TRANSABDOMINAL W TRANSVAGINAL UP TO 1ST TRIMESTER; 10/02/2024 9:55 am INDICATION: Signs/Symptoms:. COMPARISON: None. ACCESSION NUMBER(S): [id number] ORDERING CLINICIAN: LEVON BRAXTON TECHNIQUE: Multiple grayscale [...] am INDICATION: Signs/Symptoms:. COMPARISON: None. 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 This test is not indicated for use as a tumor marker. HCG testing is performed using a different test methodology at [facility] than other [facility]. Direct result comparison should only be made within the same method. Result Comment: Low- level positive HCG results can be seen in early , in jason- or post-menopausal females due to normal pituitary HCG production, or with analytic interference. Repeat testing in 48-72 hours can aid in assessing for as results should double in this time period. FSH measurement is recommended in jsaon- or post-menopausal females as concurrent elevation of FSH can support pituitary production as the source of the HCG elevation. Performed By: #### 3 4549-6 #### DWAYNE Nair ([id number]) [facility] ([facility]) [address] [place] [address] Estradiolon 09-25-2024 E2 [Mass/Vol] 423 pg/mL Normal [facility] Comment on above: Order Comment: Needs to go with a stat courierREF VALUESFOLLICULAR PHASE 20-144MID CYCLE 64-357LUTEAL PHASE 56-214POSTMENOPAUSE < 32PREPUBERTY < 20FEMALE 10-18Y 8-110MALE 10-18Y < 20ADULT MALE < 40 Performed By: #### 3 4549-6 #### DWAYNE Nair ([id number]) [facility] ([facility]) [address] [place] [address] 00016 Progesteroneon 09-25-2024 Progesterone [Mass/Vol] 37.3 ng/mL Normal [facility] Comment on above: Order Comment: Needs to go with a stat wharf laborer Result Comment: Ref Values Male <0.3- 1.2 Follicular Phase <0.3- 1.4 Luteal Phase 3.3-25.6 Mid-Luteal Phase 4.4-28.0 Postmenopausal <0.3- 0.7 Females: 1st Trimester 11.2- 90.0 2nd Trimester 25.6- 89.4 3RD Trimester 48.4-422.5 Patients receiving DHEA-S supplements may show false elevation of progesterone for results near 1.0 ng/mL. Contact laboratory at [phone] if alternative testing is needed. Performed By: #### 3 4549-6 #### DWAYNE Nair ([id number]) [facility] ([facility]) [address] [place] [address] US PELVIS OB TRANSABDOMINAL W TRANSVAGINAL UP TO 1ST TRIMESTERon 09-25-2024 US PELVIS OB TRANSABDOMINAL W TRANSVAGINAL UP TO 1ST TRIMESTER Interpreted By: Dyllan De Jesus, STUDY: US PELVIS OB TRANSABDOMINAL W TRANSVAGINAL UP TO 1ST TRIMESTER; 09/25/2024 9:44 am INDICATION: Signs/Symptoms:POSITIVE TEST. COMPARISON: None. ACCESSION NUMBER(S): [id number] ORDERING CLINICIAN: LEVON BRAXTON TECHNIQUE: Multiple grayscale [...] De Jesus 09/25/2024 10:40 AM Dictation workstation: [id number] [facility] US Pelvis transvaginalon 1. Single intrauteri ne [...] De Jesus 09/25/2024 10:40 AM Dictation workstation: [id number] [facility] Interpreted By: Dyllan Ferrara, STUDY: US PELVIS OB TRANSABDOMINAL W TRANSVAGINAL UP TO 1ST TRIMESTER; 09/25/2024 9:44 am INDICATION: Signs/Symptoms:POSITIVE TEST. COMPARISON: None. ACCESSION NUMBER(S): [id number] ORDERING CLINICIAN: LEVON BRAXTON TECHNIQUE: Multiple grayscale [...] INDICATION: Signs/Symptoms:POSITIVE TEST. COMPARISON: None. ACCESSION NUMBER(S): [id number] ORDERING CLINICIAN: LEVON BRAXTON TECHNIQUE: Multiple grayscale [...] De Jesus 09/25/2024 10:40 AM Dictation workstation: [id number] [facility] Work Phone: Radiology Study observation (narrative) [facility] Work Phone: US Pelvis transvaginalOrdere d By: Dyllan De Jesus on 09-25-2024 [facility] Work Phone: Choriogonadotropin.beta subu niton 09-15-2024 HCG.beta subunit Qn 889 m[IU]/mL High <5 Uni [facility] Comment on above: Order Comment: Stat, send with wharf laborer Total HCG measurement is performed using the Tutu Nestor Access Immunoassay which detects intact HCG and free beta HCG subunit. This test is not indicated for use as a tumor marker. HCG testing is performed using a different test methodology at [facility] than other [facility]. Direct result comparison should only be [...] By: #### 3 4549-6 #### DWAYNE Nair ([id number]) [facility] ([facility]) [address] [place] [address] Estradiolon 09-15-2024 E2 [Mass/Vol] 492 pg/mL Normal [facility] Comment on above: Order Comment: Stat, send with courierREF VALUESFOLLICULAR PHASE 20-144MID CYCLE 64-357LUTEAL PHASE 56-214POSTMENOPAUSE < 32PREPUBERTY < 20FEMALE 10-18Y 8-110MALE 10-18Y < 20ADULT MALE < 40 Performed By: #### 3 4549-6 #### DWAYNE Nair ([id number]) [facility] ([facility]) [address] [place] [address]2018 Progesteroneon 09-15-2024 Progesterone [Mass/Vol] 31.2 ng/mL [facility] Comment on above: Order Comment: Stat, send with wharf laborer Result Comment: Ref Values Male <0.3- 1.2 Follicular Phase <0.3- 1.4 Luteal Phase 3.3-25.6 Mid-Luteal Phase 4.4-28.0 Postmenopausal <0.3- 0.7 Females: 1st Trimester 11.2- 90.0 2nd Trimester 25.6- 89.4 3RD Trimester 48.4-422.5 Patients receiving DHEA-S supplements may show false elevation of progesterone for results near 1.0 ng/mL. Contact laboratory at [phone] if alternative testing is needed. Performed By: #### 3 4549-6 #### DWAYNE Nair ([id number]) [facility] ([facility]) [address] [place] [address] 14432 Choriogonadotropin.beta subu niton 09-11-2024 HCG.beta subunit Qn 195 m[IU]/mL High <5 [facility] Comment on above: Order Comment: [...] By: #### 2 243-4 #### DWAYNE Nair ([id number]) [facility] ([facility]) [id number] [place] [address] 13681 Estradiolon 09-11-2024 E2 [Mass/Vol] 347 pg/mL Normal [facility] Comment on above: Order Comment: REF V ALUES FOLLICULAR PHASE 20-144 MID CYCLE 64-357 LUTEAL PHASE 56-214 POSTMENOPAUSE < 32 PREPUBERTY < 20 FEMALE 10-18Y 8-110 MALE 10-18Y < 20 ADULT MALE < 40 Performed By: #### 2 243-4 #### DWAYNE Nair ([id number]) [facility] ([facility]) [id number] [place] [address] 29793 Progesteroneon 09-11-2024 Progesterone [Mass/Vol] 43.6 ng/mL Normal [facility] Comment on above: Order Comment: Send with stat wharf laborer Result Comment: Ref Values Male <0.3- 1.2 Follicular Phase <0.3- 1.4 Luteal Phase 3.3-25.6 Mid-Luteal Phase 4.4-28.0 Postmenopausal <0.3- 0.7 Females: 1st Trimester 11.2- 90.0 2nd Trimester 25.6- 89.4 3RD Trimester 48.4-422.5 Patients receiving DHEA-S supplements may show false elevation of progesterone for results near 1.0 ng/mL. Contact laboratory at [phone] if alternative testing is needed. Performed By: #### 3 4549-6 #### DWAYNE Nair ([id number]) [facility] ([facility]) [address] [place] [address] 49819 Thyrotropinon 09-11-2024 TSH Qn 2.28 m[IU]/L Normal 0.44-3.98 [facility] Comment on above: Order Comment: REF V ALUES FOLLICULAR PHASE 20-144 MID CYCLE 64-357 LUTEAL PHASE 56-214 POSTMENOPAUSE < 32 PREPUBERTY < 20 FEMALE 10-18Y 8-110 MALE 10-18Y < 20 ADULT MALE < 40 Performed By: #### 2 243-4 #### DWAYNE Nair ([id number]) [facility] ([facility]) [id number] [place] [address] 29752 Choriogonadotropin.beta subu niton 09-09-2024 HCG.beta subunit Qn 101 m[IU]/mL High <5 Uni [facility] Comment on above: Order Comment: REF [...] By: #### 2 243-4 #### DWAYNE Nair ([id number]) [facility] ([facility]) [address] [place] [address] 51059 Progesteroneon 09-09-2024 Progesterone [Mass/Vol] 31.9 ng/mL [facility] Comment on above: Order Comment: REF [...] results near 1.0 ng/mL. Contact laboratory at [phone] if alternative testing is needed. Performed By: #### 2 243-4 #### DWAYNE Nair ([id number]) [facility] ([facility]) [address] [place] [address] 63834 Estradiolon 09-04-2024 E2 [Mass/Vol] 222 pg/mL [facility] Comment on above: Order Comment: REF V ALUES FOLLICULAR PHASE 20-144 MID CYCLE 64-357 LUTEAL PHASE 56-214 POSTMENOPAUSE < 32 PREPUBERTY < 20 FEMALE 10-18Y 8-110 MALE 10-18Y < 20 ADULT MALE < 40 Performed By: #### 2 243-4 #### DWAYNE Nair ([id number]) [facility] ([facility]) [address] [place] [address] 58502 Progesteroneon 09-04-2024 Progesterone [Mass/Vol] 33.6 ng/mL Normal [facility] Comment on above: Result Comment: Ref Values Male <0.3- 1.2 Follicular Phase <0.3- 1.4 Luteal Phase 3.3-25.6 Mid-Luteal Phase 4.4-28.0 Postmenopausal <0.3- 0.7 Females: 1st Trimester 11.2- 90.0 2nd Trimester 25.6- 89.4 3RD Trimester 48.4-422.5 Patients receiving DHEA-S supplements may show false elevation of progesterone for results near 1.0 ng/mL. Contact laboratory at [phone] if alternative testing is needed. Performed By: #### 2 243-4 #### DWAYNE Nair ([id number]) [facility] ([facility]) [address] [place] [address] 58557 Progesteroneon 08-25-2024 Progesterone [Mass/Vol] 0.5 ng/mL Normal [facility] Comment on above: Order Comment: REF [...] results near 1.0 ng/mL. Contact laboratory at [phone] if alternative testing is needed. Performed By: #### 2 243-4 #### DWAYNE Nair ([id number]) [facility] ([facility]) [address] [place] [address] Estradiolon 08-21-2024 E2 [Mass/Vol] 427 pg/mL Normal [facility] Comment on above: Order Comment: REF V ALUES FOLLICULAR PHASE 20-144 MID CYCLE 64-357 LUTEAL PHASE 56-214 POSTMENOPAUSE < 32 PREPUBERTY < 20 FEMALE 10-18Y 8-110 MALE 10-18Y < 20 ADULT MALE < 40 Performed By: #### 2 243-4 #### DWAYNE Nair ([id number]) [facility] ([facility]) [address] [place] [address] Lutropinon 08-21-2024 Lutropin Qn 11.4 IU/L Normal [facility] Comment on above: Result Comment: LH R eference Values Follicular Phase 1.9-12.5 IU/L Mid-Cycle 8.7-76.3 IU/L Luteal Phase 0.5-16.9 IU/L Post Menopause 5.0-55.2 IU/L Children 0- 6.0 IU/L Adult Male 18-70 years 1.5- 9.3 IU/L Adult Male >70 years 3.1-34.6 IU/L Performed By: #### 2 1198-7 #### SHAUNA ROBISON ([id number]) [facility] ([facility]) [address] [place] [address] Progesteroneon 08-21-2024 Progesterone [Mass/Vol] 0.6 ng/mL Normal [facility] Comment on above: Result Comment: Ref Values Male <0.3- 1.2 Follicular Phase <0.3- 1.4 Luteal Phase 3.3-25.6 Mid-Luteal Phase 4.4-28.0 Postmenopausal <0.3- 0.7 Females: 1st Trimester 11.2- 90.0 2nd Trimester 25.6- 89.4 3RD Trimester 48.4-422.5 Patients receiving DHEA-S supplements may show false elevation of progesterone for results near 1.0 ng/mL. Contact laboratory at [phone] if alternative testing is needed. Performed By: #### 2 243-4 #### DWAYNE Nair ([id number]) [facility] ([facility]) [address] [place] [address] US PELVIS TRANSABDOMINAL WIT H TRANSVAGINALon 08-21-2024 US PELVIS TRANSABDOMINAL WITH TRANSVAGINAL Interpreted By: Jeremy Brower, STUDY: US PELVIS TRANSABDOMINAL WITH TRANSVAGINAL; 08/21/2024 8:38 am INDICATION: Signs/Symptoms:FERTILITY. ,Z31.83 Encounter for assisted reproductive fertility procedure cycle COMPARISON: 08/14/2024 ACCESSION NUMBER(S): [id number] ORDERING CLINICIAN: LEVON BRAXTNO TECHNIQUE: Multiple multiplanar static amos scale, color [...] Jeremy Brower 08/22/2024 10:52 AM Dictation workstation: [id number] [facility] Choriogonadotropin.beta subu niton 08-14-2024 HCG.beta subunit Qn m[IU]/mL Normal <5 [facility] Comment on above: Order Comment: Total HCG measurement is performed using the Tutu Aubrey Access Immunoassay which detects intact HCG and free beta HCG subunit. This test is not indicated for use as a tumor marker. HCG testing is performed using a different test methodology at [facility] than other [facility]. Direct result comparison should only be made within the same method. Performed By: #### 2 1198-7 #### SHAUNA ROBISON ([id number]) [facility] ([facility]) [address] [place] [address] 86165 Estradiolon 08-14-2024 E2 [Mass/Vol] 42 pg/mL [facility] Comment on above: Order Comment: Total HCG measurement is performed using the Tutu Aubrey Access Immunoassay which detects intact HCG and free beta HCG subunit. This test is not indicated for use as a tumor marker. HCG testing is performed using a different test methodology at [facility] than other [facility]. Direct result comparison should only be made within the same method. Performed By: #### 2 1198-7 #### SHAUNA ROBISON ([id number]) [facility] ([facility]) [address] [place] [address]3560 Follitropin and Lutropin rhoades el Qnon 08-14-2024 Follitropin Qn 6.4 IU/L [facility] Comment on above: Order Comment: Total HCG measurement is performed using the Tutu Nestor Access Immunoassay which detects intact HCG and free beta HCG subunit. This test is not indicated for use as a tumor marker. HCG testing is performed using a different test methodology at [facility] than other [facility]. Direct result comparison should only be made within the same method. Result Comment: FSH Ref Values Follicular 2.0-12.0 IU/L Mid-Cycle 12.0-25.0 IU/L Luteal Phase 2.0-12.0 IU/L Menopause 30.0-150.0 IU/L Pre-puberty 50% Adult IU/L Adult Male 2.0-10.0 IU/L Infants 0.0-1.0 IU/L Performed By: #### 2 1198-7 #### SHAUNA ROBISON ([id number]) [facility] ([facility]) [address] [place] [address] 78115 Lutropin Qn 5.0 IU/L [facility] Comment on above: Order Comment: Total HCG measurement is performed using the Tutu Aubrey Access Immunoassay which detects intact HCG and free beta HCG subunit. This test is not indicated for use as a tumor marker. HCG testing is performed using a different test methodology at [facility] than other [facility]. Direct result comparison should only be made within the same method. Result Comment: LH R eference Values Follicular Phase 1.9-12.5 IU/L Mid-Cycle 8.7-76.3 IU/L Luteal Phase 0.5-16.9 IU/L Post Menopause 5.0-55.2 IU/L Children 0- 6.0 IU/L Adult Male 18-70 years 1.5- 9.3 IU/L Adult Male >70 years 3.1-34.6 IU/L Performed By: #### 2 1198-7 #### SHAUNA ROBISON ([id number]) [facility] ([facility]) [address] [place] [address]4784 Progesteroneon 08-14-2024 Progesterone [Mass/Vol] 0.5 ng/mL Normal [facility] Comment on above: Order Comment: Total HCG measurement is performed using the Tutu Spokeable Access Immunoassay which detects intact HCG and free beta HCG subunit. This test is not indicated for use as a tumor marker. HCG testing is performed using a different test methodology at [facility] than other [facility]. Direct result comparison should only be made within the same method. Result Comment: Ref Values Male <0.3- 1.2 Follicular Phase <0.3- 1.4 Luteal Phase 3.3-25.6 Mid-Luteal Phase 4.4-28.0 Postmenopausal <0.3- 0.7 Females: 1st Trimester 11.2- 90.0 2nd Trimester 25.6- 89.4 3RD Trimester 48.4-422.5 Patients receiving DHEA-S supplements may show false elevation of progesterone for results near 1.0 ng/mL. Contact laboratory at [phone] if alternative testing is needed. Performed By: #### 2 1198-7 #### SHAUNA ROBISON ([id number]) [facility] ([facility]) [address] [place] [address] 19663 Thyrotropinon 08-14-2024 TSH Qn 1.86 m[IU]/L Normal 0.44-3.98 [facility] Comment on above: Order Comment: Total HCG measurement is performed using the Tutu Spokeable Access Immunoassay which detects intact HCG and free beta HCG subunit. This test is not indicated for use as a tumor marker. HCG testing is performed using a different test methodology at [facility] than other [facility]. Direct result comparison should only be made within the same method. Performed By: #### 2 1198-7 #### VILLATORO ENRIQUETA ([id number]) [facility] ([facility]) [address] [place] [address] US PELVIS TRANSABDOMINAL WIT H TRANSVAGINALon 08-14-2024 US PELVIS TRANSABDOMINAL WITH TRANSVAGINAL Interpreted By: Ravi Triplett, STUDY: US PELVIS TRANSABDOMINAL WITH TRANSVAGINAL; ; 08/14/2024 8:54 am INDICATION: Signs/Symptoms:FERTILITY. COMPARISON: 06/24/2024 ACCESSION NUMBER(S): [id number] ORDERING CLINICIAN: LEVON BRAXTON TECHNIQUE: Multiple transabdominal [...] Ravi Triplett 08/15/2024 2:03 PM Dictation workstation: [id number] Normal [facility] Office Vis iton 07-16-2024 Internal Medicine Office Visit Normal [facility] Estradiolon 06-24-2024 E2 [Mass/Vol] 453 pg/mL Normal [facility] Comment on above: Order Comment: Total HCG measurement is performed using the Tutu Aubrey Access Immunoassay which detects intact HCG and free beta HCG subunit. This test is not indicated for use as a tumor marker. HCG testing is performed using a different test methodology at [facility] than other [facility]. Direct result comparison should only be made within the same method. Performed By: #### 2 1198-7 #### SHAUNA ROBISON ([id number]) [facility] ([facility]) [address] [place] [address] Lutropinon 06-24-2024 Lutropin Qn 3.1 IU/L Normal [facility] Comment on above: Result Comment: LH R eference Values Follicular Phase 1.9-12.5 IU/L Mid-Cycle 8.7-76.3 IU/L Luteal Phase 0.5-16.9 IU/L Post Menopause 5.0-55.2 IU/L Children 0- 6.0 IU/L Adult Male 18-70 years 1.5- 9.3 IU/L Adult Male >70 years 3.1-34.6 IU/L Performed By: #### 2 1198-7 #### SHAUNA ROBISON ([id number]) [facility] ([facility]) [address] [place], [place] [address] Progesteroneon 06-24-2024 Progesterone [Mass/Vol] 0.6 ng/mL [facility] Comment on above: Result Comment: Ref Values Male <0.3- 1.2 Follicular Phase <0.3- 1.4 Luteal Phase 3.3-25.6 Mid-Luteal Phase 4.4-28.0 Postmenopausal <0.3- 0.7 Females: 1st Trimester 11.2- 90.0 2nd Trimester 25.6- 89.4 3RD Trimester 48.4-422.5 Patients receiving DHEA-S supplements may show false elevation of progesterone for results near 1.0 ng/mL. Contact laboratory at [phone] if alternative testing is needed. Performed By: #### 2 1198-7 #### SHAUNA ROBISON ([id number]) [facility] ([facility]) [address] [place] [address] GERRY US PELVIS LIMITED FOLLIC LES-FOLLICLE STUDIES PERFORMEDon 06-24-2024 GERRY US PELVIS LIMITED FOLLICLES-FOLLICLE STUDIES PERFORMED Interpreted By: Xiang Bowden, STUDY: US PELVIS TRANSABDOMINAL WITH TRANSVAGINAL; 06/24/2024 9:01 am INDICATION: Signs/Symptoms:FERTILITY. ,Z31.83 Encounter for assisted reproductive fertility procedure cycle COMPARISON: None. ACCESSION NUMBER(S): [id number] ORDERING CLINICIAN: LEVON BRAXTON TECHNIQUE: Multiple multiplanar [...] Xiang Bowden 06/25/2024 6:46 AM Dictation workstation: [id number] [facility] US PELVIS TRANSABDOMINAL WIT H TRANSVAGINALon 06-24-2024 US PELVIS TRANSABDOMINAL WITH TRANSVAGINAL Interpreted By: Xiang Bowden, STUDY: US PELVIS TRANSABDOMINAL WITH TRANSVAGINAL; 06/24/2024 9:01 am INDICATION: Signs/Symptoms:FERTILITY. ,Z31.83 Encounter for assisted reproductive fertility procedure cycle COMPARISON: None. ACCESSION NUMBER(S): [id number] ORDERING CLINICIAN: LEVON BRAXTON TECHNIQUE: Multiple multiplanar [...] Xiang Bowden 06/25/2024 6:46 AM Dictation workstation: [id number] [facility] Estradiolon 06-22-2024 E2 [Mass/Vol] 124 pg/mL [facility] Comment on above: Order Comment: REF V ALUES FOLLICULAR PHASE 20-144 MID CYCLE 64-357 LUTEAL PHASE 56-214 POSTMENOPAUSE < 32 PREPUBERTY < 20 FEMALE 10-18Y 8-110 MALE 10-18Y < 20 ADULT MALE < 40 Performed By: #### 2 243-4 #### DWAYNE Nair ([id number]) [facility] ([facility]) [address] [place] [address] Lutropinon 06-22-2024 Lutropin Qn 1.9 IU/L [facility] Comment on above: Result Comment: LH R eference Values Follicular Phase 1.9-12.5 IU/L Mid-Cycle 8.7-76.3 IU/L Luteal Phase 0.5-16.9 IU/L Post Menopause 5.0-55.2 IU/L Children 0- 6.0 IU/L Adult Male 18-70 years 1.5- 9.3 IU/L Adult Male >70 years 3.1-34.6 IU/L Performed By: #### 1 0501-5 #### DWAYNE Nair ([id number]) [facility] ([facility]) [address] [place], [place] [id number] Progesteroneon 06-22-2024 Progesterone [Mass/Vol] 0.4 ng/mL [facility] Comment on above: Result Comment: Ref Values Male <0.3- 1.2 Follicular Phase <0.3- 1.4 Luteal Phase 3.3-25.6 Mid-Luteal Phase 4.4-28.0 Postmenopausal <0.3- 0.7 Females: 1st Trimester 11.2- 90.0 2nd Trimester 25.6- 89.4 3RD Trimester 48.4-422.5 Patients receiving DHEA-S supplements may show false elevation of progesterone for results near 1.0 ng/mL. Contact laboratory at [phone] if alternative testing is needed. Performed By: #### 2 1198-7 #### VILLATORO ENRIQUETA ([id number]) [facility] ([facility]) [address] [id number] GERRY US PELVIS LIMITED FOLLIC LES-FOLLICLE STUDIES PERFORMEDon 06-22-2024 GERRY US PELVIS LIMITED FOLLICLES-FOLLICLE STUDIES PERFORMED Interpreted By: Xiang Bowden, STUDY: US PELVIS TRANSABDOMINAL WITH TRANSVAGINAL; 06/22/2024 9:02 am INDICATION: Signs/Symptoms:FERTILITY. ,Z31.83 Encounter for assisted reproductive fertility procedure cycle COMPARISON: None. ACCESSION NUMBER(S): [id number] ORDERING CLINICIAN: LEVON BRAXTON TECHNIQUE: Multiple multiplanar [...] Xiang Bowden 06/23/2024 5:37 AM Dictation workstation: [id number] [facility] US PELVIS TRANSABDOMINAL WIT H TRANSVAGINALon 06-22-2024 US PELVIS TRANSABDOMINAL WITH TRANSVAGINAL Interpreted By: Xiang Bowden, STUDY: US PELVIS TRANSABDOMINAL WITH TRANSVAGINAL; 06/22/2024 9:02 am INDICATION: Signs/Symptoms:FERTILITY. ,Z31.83 Encounter for assisted reproductive fertility procedure cycle COMPARISON: None. ACCESSION NUMBER(S): [id number] ORDERING CLINICIAN: LEVON BRAXTON TECHNIQUE: Multiple multiplanar [...] Xiang Bowden 06/23/2024 5:37 AM Dictation workstation: [id number] [facility] Estradiolon 06-19-2024 E2 [Mass/Vol] 49 pg/mL [facility] Comment on above: Order Comment: REF V ALUES FOLLICULAR PHASE 20-144 MID CYCLE 64-357 LUTEAL PHASE 56-214 POSTMENOPAUSE < 32 PREPUBERTY < 20 FEMALE 10-18Y 8-110 MALE 10-18Y < 20 ADULT MALE < 40 Performed By: #### 2 243-4 #### DWAYNE Nair ([id number]) [facility] ([facility]) [address] [place] [address] Lutropinon 06-19-2024 Lutropin Qn 7.0 IU/L Normal [facility] Comment on above: Result Comment: LH R eference Values Follicular Phase 1.9-12.5 IU/L Mid-Cycle 8.7-76.3 IU/L Luteal Phase 0.5-16.9 IU/L Post Menopause 5.0-55.2 IU/L Children 0- 6.0 IU/L Adult Male 18-70 years 1.5- 9.3 IU/L Adult Male >70 years 3.1-34.6 IU/L Performed By: #### 1 0501-5 #### DWAYNE Nair ([id number]) [facility] ([facility]) [address] [place] [address] Progesteroneon 06-19-2024 Progesterone [Mass/Vol] 0.5 ng/mL [facility] Comment on above: Result Comment: Ref Values Male <0.3- 1.2 Follicular Phase <0.3- 1.4 Luteal Phase 3.3-25.6 Mid-Luteal Phase 4.4-28.0 Postmenopausal <0.3- 0.7 Females: 1st Trimester 11.2- 90.0 2nd Trimester 25.6- 89.4 3RD Trimester 48.4-422.5 Patients receiving DHEA-S supplements may show false elevation of progesterone for results near 1.0 ng/mL. Contact laboratory at [phone] if alternative testing is needed. Performed By: #### 2 839-9 #### DWAYNE Nair ([id number]) [facility] ([facility]) [address] [place] [address] GERRY US PELVIS LIMITED FOLLIC LES-FOLLICLE STUDIES PERFORMEDon 06-19-2024 GERRY US PELVIS LIMITED FOLLICLES-FOLLICLE STUDIES PERFORMED Interpreted By: Lawson Wynn, STUDY: US PELVIS TRANSABDOMINAL WITH TRANSVAGINAL; 06/19/2024 9:11 am INDICATION: Signs/Symptoms:FERTILITY. ,Z31.83 Encounter for assisted reproductive fertility procedure cycle COMPARISON: Prior exam from 06/15/2024.. ACCESSION NUMBER(S): [id number] ORDERING CLINICIAN: LEVON BRAXTON TECHNIQUE: Multiple multiplanar [...] Lawson Wynn 06/20/2024 4:53 PM Dictation workstation: [id number] [facility] US PELVIS TRANSABDOMINAL WIT H TRANSVAGINALon 06-19-2024 US PELVIS TRANSABDOMINAL WITH TRANSVAGINAL Interpreted By: Lawson Wynn, STUDY: US PELVIS TRANSABDOMINAL WITH TRANSVAGINAL; 06/19/2024 9:11 am INDICATION: Signs/Symptoms:FERTILITY. ,Z31.83 Encounter for assisted reproductive fertility procedure cycle COMPARISON: Prior exam from 06/15/2024.. ACCESSION NUMBER(S): [id number] ORDERING CLINICIAN: LEVON BRAXTON TECHNIQUE: Multiple multiplanar [...] Lawson Wynn 06/20/2024 4:53 PM Dictation workstation: [id number] [facility] Choriogonadotropin.beta subu niton 06-15-2024 HCG.beta subunit Qn m[IU]/mL Normal <5 [facility] Comment on above: Order Comment: Total HCG measurement is performed using the [employer] Access Immunoassay which detects intact HCG and free beta HCG subunit. This test is not indicated for use as a tumor marker. HCG testing is performed using a different test methodology at [facility] than other [facility]. Direct result comparison should only be made within the same method. Performed By: #### 2 1198-7 #### SHAUNA ROBISON ([id number]) [facility] ([facility]) [address] [place] [address] Estradiolon 06-15-2024 E2 [Mass/Vol] 47 pg/mL [facility] Comment on above: Order Comment: REF V ALUES FOLLICULAR PHASE 20-144 MID CYCLE 64-357 LUTEAL PHASE 56-214 POSTMENOPAUSE < 32 PREPUBERTY < 20 FEMALE 10-18Y 8-110 MALE 10-18Y < 20 ADULT MALE < 40 Performed By: #### 2 243-4 #### DWAYNE Nair ([id number]) [facility] ([facility]) [id number] [place] [address] Follitropin and Lutropin rhoades el Qnon 06-15-2024 Follitropin Qn 5.0 IU/L [facility] Comment on above: Result Comment: FSH Ref Values Follicular 2.0-12.0 IU/L Mid-Cycle 12.0-25.0 IU/L Luteal Phase 2.0-12.0 IU/L Menopause 30.0-150.0 IU/L Pre-puberty 50% Adult IU/L Adult Male 2.0-10.0 IU/L Infants 0.0-1.0 IU/L Performed By: #### 3 4549-6 #### DWAYNE Nair ([id number]) [facility] ([facility]) [id number] [place] [address] Lutropin Qn 2.9 IU/L [facility] Comment on above: Result Comment: LH R eference Values Follicular Phase 1.9-12.5 IU/L Mid-Cycle 8.7-76.3 IU/L Luteal Phase 0.5-16.9 IU/L Post Menopause 5.0-55.2 IU/L Children 0- 6.0 IU/L Adult Male 18-70 years 1.5- 9.3 IU/L Adult Male >70 years 3.1-34.6 IU/L Performed By: #### 3 4549-6 #### DWAYNE Nair ([id number]) [facility] ([facility]) [address] [place] [address] Progesteroneon 06-15-2024 Progesterone [Mass/Vol] 0.5 ng/mL [facility] Comment on above: Result Comment: Ref Values Male <0.3- 1.2 Follicular Phase <0.3- 1.4 Luteal Phase 3.3-25.6 Mid-Luteal Phase 4.4-28.0 Postmenopausal <0.3- 0.7 Females: 1st Trimester 11.2- 90.0 2nd Trimester 25.6- 89.4 3RD Trimester 48.4-422.5 Patients receiving DHEA-S supplements may show false elevation of progesterone for results near 1.0 ng/mL. Contact laboratory at [phone] if alternative testing is needed. Performed By: #### 2 839-9 #### DWAYNE Nair ([id number]) [facility] ([facility]) [address] [place] [address] Thyrotropinon 06-15-2024 TSH Qn 2.68 m[IU]/L Normal 0.44-3.98 [facility] Comment on above: Order Comment: TSH t esting is performed using different testing methodology at [facility] than at other [facility]. Direct result comparisons should only be made within the same method. Performed By: #### 3 016-3 #### VILLATORO ENRIQUETA ([id number]) [facility] ([facility]) [address] [place] [address] US PELVIS TRANSABDOMINAL WIT H TRANSVAGINALon 06-15-2024 US PELVIS TRANSABDOMINAL WITH TRANSVAGINAL Interpreted By: Dyllan De Jesus, STUDY: US PELVIS TRANSABDOMINAL WITH TRANSVAGINAL; ; 06/15/2024 8:31 am INDICATION: Signs/Symptoms:Fertility. COMPARISON: None. ACCESSION NUMBER(S): [id number] ORDERING CLINICIAN: LEVON BRAXTON TECHNIQUE: Multiple multiplanar [...] De Jesus 06/15/2024 12:12 PM Dictation workstation: [id number] [facility] US Pelvis transvaginalon 1. Single follicle w ithin the right ovary, as above. 2. Tiny hypoechoic focus in the endometrium, of uncertain etiology. MACRO: None Signed by: Dyllan De Jesus 06/15/2024 12:12 PM Dictation workstation: [id number] Interpreted By: Dyllan Ferrara, STUDY: US PELVIS TRANSABDOMINAL WITH TRANSVAGINAL; ; 06/15/2024 8:31 am INDICATION: Signs/Symptoms:Fertility. COMPARISON: None. ACCESSION NUMBER(S): [id number] ORDERING CLINICIAN: LEVON BRAXTON TECHNIQUE: Multiple multiplanar [...] am INDICATION: Signs/Symptoms:Fertility. COMPARISON: None. ACCESSION NUMBER(S): [id number] ORDERING CLINICIAN: LEVON BRAXTON TECHNIQUE: Multiple multiplanar [...] De Jesus 06/15/2024 12:12 PM Dictation workstation: [id number] [facility] Work Phone: Radiology Study observation (narrative) [facility] Work Phone: US Pelvis transvaginalOrdere d By: Dyllan De Jesus on 06-15-2024 [facility] Work Phone: Antimullerian Hormone, Serum on 06-02-2024 AMH, SERUM 3.66 ng/mL Normal . [facility] Comment on above: Result Comment: For assays employing antibodies, the possibility exists forinterference by heterophile antibodies in the samples.11.Adele Nair. Interferences in Immunoassays - still a threat. Clin. Chem. 2000; 46: 8723-8361.This test was developed and its performance characteristicsdetermined by [employer]. It has not been cleared or approvedby the Food and Drug Administration.Reference Range:Females 31 - 35y: 0.66 - 8.75Median 3.00AMH concentrations of >= 1.06 ng/mL is correlated with abetter response to ovarian stimulation, produced moreretrievable oocytes and higher odds of live accordingto Thanh et al. Fertility and Sterility. 2010:94:9808-3716. The current AMH test method correlates withthe [...] L509.8000, L3100.5400, L501.9985, L3890.6005, L803.3000, L3890.6300, L3100.5170 ####[facility] [address] [place], [place], [id number] PROLACTIN 4465on 06-02-2024 PROLACTIN 7.8 ng/mL Normal 4.8-33.4 [facility] Comment on above: Performed By: #### L 509.4005, L3300.1750, L3100.5140, L509.3000, L3890.6100, L100.0100, L801.2600, L501.9520, L3100.5125, L506.1000, L3400.0000, L500.4050, B882-1, L509.8000, L3100.5400, L501.9985, L3890.6005, L803.3000, L3890.6300, L3100.5170 ####[facility] [address] [place], [place], [id number] V-Zoster IgG (Immunity)on V ZOSTER IgG 1347 index Normal Immune >165 [facility] Comment on above: Result Comment: Nega tive <135 Equivocal 135 - 165 Positive >165A positive result generally indicates exposure to thepathogen or administration of specific immunoglobulins,but it is not indication of active infection or stageof disease.Performed at: [facility] [address] [place], [place] [id number] Director: Kolton Workman MD, Phone: [phone] at: [facility] [id number] [place], [place] [id number] Director: Huan Kuhn PhD, Phone: [phone] Performed By: #### L 509.4005, L3300.1750, L3100.5140, L509.3000, L3890.6100, L100.0100, L801.2600, L501.9520, L3100.5125, L506.1000, L3400.0000, L500.4050, B882-1, L509.8000, L3100.5400, L501.9985, L3890.6005, L803.3000, L3890.6300, L3100.5170 ####[facility] [address] [place], [place], [id number] HCG BETA-SUBUNIT QUANT.on HCG B-SUBUNIT < 1 Normal . [facility] Comment on above: Order Comment: N Result Comment: Fema le (Non-) 0 - 5 (Postmenopausal) 0 - 8 Female () Weeks of Gestation 3 6 - 71 4 10 - 750 5 837 - 1358 6 864 - 43533 7 6072 -589503 8 11611 -220254 9 70233 -914640 10 73029 -469470 12 07622 -445962 14 72889 - 92598 15 38418 - 37753 16 1792 - 93681 17 8098 - 81746 18 8967 - 07916Roche ECLIA methodology Performed By: #### L 509.4005, L3300.1750, L3100.5140, L509.3000, L3890.6100, L100.0100, L801.2600, L501.9520, L3100.5125, L506.1000, L3400.0000, L500.4050, B882-1, L509.8000, L3100.5400, L501.9985, L3890.6005, L803.3000, L3890.6300, L3100.5170 ####[facility] [address] [place], [address] PROGESTERONE 4317on 05-28-20 PROGESTERONE 0.2 ng/mL Normal . [facility] Comment on above: Order Comment: N Result Comment: Foll icular phase 0.1 - 0.9 Luteal phase 1.8 - 23.9 Ovulation phase 0.1 - 12.0 First trimester 11.0 - 44.3 Second trimester 25.4 - 83.3 Third trimester 58.7 - 214.0 Postmenopausal 0.0 - 0.1Performed at: [address] [id number] Director: Huan Kuhn PhD, Phone: [phone] Performed By: #### L 509.4005, L3300.1750, L3100.5140, L509.3000, L3890.6100, L100.0100, L801.2600, L501.9520, L3100.5125, L506.1000, L3400.0000, L500.4050, B882-1, L509.8000, L3100.5400, L501.9985, L3890.6005, L803.3000, L3890.6300, L3100.5170 ####[facility] [address] [place], [place], [id number] E268-6bs 05-27-2024 ABO and Rh group Nom (Bld) Blood group B Rh(D) negative Normal [facility] Comment on above: Performed By: #### L 509.4005, L3300.1750, L3100.5140, L509.3000, L3890.6100, L100.0100, L801.2600, L501.9520, L3100.5125, L506.1000, L3400.0000, L500.4050, B882-1, L509.8000, L3100.5400, L501.9985, L3890.6005, L803.3000, L3890.6300, L3100.5170 ####[facility] [address] [place], [place], [id number] CBC W/Diff, Automatedon 05-01 Absolute Lymph 2.52 X10 3/uL Normal 0.83-4.51 [facility] Comment on above: Performed By: #### L 509.4005, L3300.1750, L3100.5140, L509.3000, L3890.6100, L100.0100, L801.2600, L501.9520, L3100.5125, L506.1000, L3400.0000, L500.4050, B882-1, L509.8000, L3100.5400, L501.9985, L3890.6005, L803.3000, L3890.6300, L3100.5170 ####[facility] [address] [place], [place], [id number] Absolute Neut 6.0 X10 3/uL Normal 2.0-7.7 [facility] Comment on above: Performed By: #### L 509.4005, L3300.1750, L3100.5140, L509.3000, L3890.6100, L100.0100, L801.2600, L501.9520, L3100.5125, L506.1000, L3400.0000, L500.4050, B882-1, L509.8000, L3100.5400, L501.9985, L3890.6005, L803.3000, L3890.6300, L3100.5170 ####[facility] [address] [facility] [place], [address](939) Basophils/100 WBC (Bld) 0.7 % Normal 0-1 [facility] Comment on above: Performed By: #### L 509.4005, L3300.1750, L3100.5140, L509.3000, L3890.6100, L100.0100, L801.2600, L501.9520, L3100.5125, L506.1000, L3400.0000, L500.4050, B882-1, L509.8000, L3100.5400, L501.9985, L3890.6005, L803.3000, L3890.6300, L3100.5170 ####[facility] [address] [place], [address](182) Eosinophils/100 WBC (Bld) 2.2 % Normal 0-5 [facility] Comment on above: Performed By: #### L 509.4005, L3300.1750, L3100.5140, L509.3000, L3890.6100, L100.0100, L801.2600, L501.9520, L3100.5125, L506.1000, L3400.0000, L500.4050, B882-1, L509.8000, L3100.5400, L501.9985, L3890.6005, L803.3000, L3890.6300, L3100.5170 ####[facility] [address] [place], [address] Erythrocyte distribution width (RBC) [Ratio] 12.6 % Normal 11.6-14.6 [facility] Comment on above: Performed By: #### L 509.4005, L3300.1750, L3100.5140, L509.3000, L3890.6100, L100.0100, L801.2600, L501.9520, L3100.5125, L506.1000, L3400.0000, L500.4050, B882-1, L509.8000, L3100.5400, L501.9985, L3890.6005, L803.3000, L3890.6300, L3100.5170 ####[facility] [address] [place], [address] Hematocrit (Bld) [Volume fraction] 45.4 % Normal 37-47 [facility] Comment on above: Performed By: #### L 509.4005, L3300.1750, L3100.5140, L509.3000, L3890.6100, L100.0100, L801.2600, L501.9520, L3100.5125, L506.1000, L3400.0000, L500.4050, B882-1, L509.8000, L3100.5400, L501.9985, L3890.6005, L803.3000, L3890.6300, L3100.5170 ####[facility] [address] [place], [address] Hemoglobin (Bld) [Mass/Vol] 14.7 g/dL Normal 12.0-15.0 [facility] Comment on above: Performed By: #### L 509.4005, L3300.1750, L3100.5140, L509.3000, L3890.6100, L100.0100, L801.2600, L501.9520, L3100.5125, L506.1000, L3400.0000, L500.4050, B882-1, L509.8000, L3100.5400, L501.9985, L3890.6005, L803.3000, L3890.6300, L3100.5170 ####[facility] [address] [place], [address] IG% 0.900 Normal 0.0-0.9 [facility] Comment on above: Result Comment: IG% - Immature Granulocytes (promyelocytes, myelocytes andmetamyelocytes) > 1% indicates that a LEFT SHIFT is Present. Performed By: #### L 509.4005, L3300.1750, L3100.5140, L509.3000, L3890.6100, L100.0100, L801.2600, L501.9520, L3100.5125, L506.1000, L3400.0000, L500.4050, B882-1, L509.8000, L3100.5400, L501.9985, L3890.6005, L803.3000, L3890.6300, L3100.5170 ####[facility] [address] [facility] [address] [place], [place], [id number] Lymphocytes/100 WBC (Bld) 26.9 % Normal 19-41 [facility] Comment on above: Performed By: #### L 509.4005, L3300.1750, L3100.5140, L509.3000, L3890.6100, L100.0100, L801.2600, L501.9520, L3100.5125, L506.1000, L3400.0000, L500.4050, B882-1, L509.8000, L3100.5400, L501.9985, L3890.6005, L803.3000, L3890.6300, L3100.5170 ####[facility] [address] [place], [place], [id number] MCH (RBC) [Entitic mass] 27.8 pg Normal 27.0-32.0 [facility] Comment on above: Performed By: #### L 509.4005, L3300.1750, L3100.5140, L509.3000, L3890.6100, L100.0100, L801.2600, L501.9520, L3100.5125, L506.1000, L3400.0000, L500.4050, B882-1, L509.8000, L3100.5400, L501.9985, L3890.6005, L803.3000, L3890.6300, L3100.5170 ####[facility] [address] [place], [address] MCHC (RBC) [Mass/Vol] 32.4 g/dL Normal 32-36 [facility] Comment on above: Performed By: #### L 509.4005, L3300.1750, L3100.5140, L509.3000, L3890.6100, L100.0100, L801.2600, L501.9520, L3100.5125, L506.1000, L3400.0000, L500.4050, B882-1, L509.8000, L3100.5400, L501.9985, L3890.6005, L803.3000, L3890.6300, L3100.5170 ####[facility] [address] [place], [address] MCV (RBC) [Entitic vol] 85.8 fL Normal 81-99 [facility] Comment on above: Performed By: #### L 509.4005, L3300.1750, L3100.5140, L509.3000, L3890.6100, L100.0100, L801.2600, L501.9520, L3100.5125, L506.1000, L3400.0000, L500.4050, B882-1, L509.8000, L3100.5400, L501.9985, L3890.6005, L803.3000, L3890.6300, L3100.5170 ####[facility] [address] [place], [address] Monocytes/100 WBC (Bld) 5.4 % Normal 0-10 [facility] Comment on above: Performed By: #### L 509.4005, L3300.1750, L3100.5140, L509.3000, L3890.6100, L100.0100, L801.2600, L501.9520, L3100.5125, L506.1000, L3400.0000, L500.4050, B882-1, L509.8000, L3100.5400, L501.9985, L3890.6005, L803.3000, L3890.6300, L3100.5170 ####[facility] [address] [place], [phone]) Neutrophils/100 WBC (Bld) 63.9 % Normal 47-70 [facility] Comment on above: Performed By: #### L 509.4005, L3300.1750, L3100.5140, L509.3000, L3890.6100, L100.0100, L801.2600, L501.9520, L3100.5125, L506.1000, L3400.0000, L500.4050, B882-1, L509.8000, L3100.5400, L501.9985, L3890.6005, L803.3000, L3890.6300, L3100.5170 ####[facility] [address] [place], [address] Nucleated RBC (Bld) [#/Vol] 0 10*3/uL Normal 0-5 [facility] Comment on above: Performed By: #### L 509.4005, L3300.1750, L3100.5140, L509.3000, L3890.6100, L100.0100, L801.2600, L501.9520, L3100.5125, L506.1000, L3400.0000, L500.4050, B882-1, L509.8000, L3100.5400, L501.9985, L3890.6005, L803.3000, L3890.6300, L3100.5170 ####[facility] [address] [place], [address] Platelet mean volume (Bld) [Entitic vol] 8.7 fL Normal 6.2-12.0 [facility] Comment on above: Performed By: #### L 509.4005, L3300.1750, L3100.5140, L509.3000, L3890.6100, L100.0100, L801.2600, L501.9520, L3100.5125, L506.1000, L3400.0000, L500.4050, B882-1, L509.8000, L3100.5400, L501.9985, L3890.6005, L803.3000, L3890.6300, L3100.5170 ####[facility] [address] [facility]. [place], [place], [phone] Platelets (Bld) [#/Vol] 348 10*3/uL Normal 150-450 [facility] Comment on above: Performed By: #### L 509.4005, L3300.1750, L3100.5140, L509.3000, L3890.6100, L100.0100, L801.2600, L501.9520, L3100.5125, L506.1000, L3400.0000, L500.4050, B882-1, L509.8000, L3100.5400, L501.9985, L3890.6005, L803.3000, L3890.6300, L3100.5170 ####[facility] [address] [facility] [place], [place], [phone] RBC (Bld) [#/Vol] 5.29 10*6/uL Normal 4.2-5.4 [facility] Comment on above: Performed By: #### L 509.4005, L3300.1750, L3100.5140, L509.3000, L3890.6100, L100.0100, L801.2600, L501.9520, L3100.5125, L506.1000, L3400.0000, L500.4050, B882-1, L509.8000, L3100.5400, L501.9985, L3890.6005, L803.3000, L3890.6300, L3100.5170 ####[facility] [address] [place], [address] RDW SD 39.6 fl Normal 35.1-43.9 [facility] Comment on above: Performed By: #### L 509.4005, L3300.1750, L3100.5140, L509.3000, L3890.6100, L100.0100, L801.2600, L501.9520, L3100.5125, L506.1000, L3400.0000, L500.4050, B882-1, L509.8000, L3100.5400, L501.9985, L3890.6005, L803.3000, L3890.6300, L3100.5170 ####[facility] [address] [place], [address] WBC (Bld) [#/Vol] 9.4 10*3/uL Normal 4.4-11.0 [facility] Comment on above: Performed By: #### L 509.4005, L3300.1750, L3100.5140, L509.3000, L3890.6100, L100.0100, L801.2600, L501.9520, L3100.5125, L506.1000, L3400.0000, L500.4050, B882-1, L509.8000, L3100.5400, L501.9985, L3890.6005, L803.3000, L3890.6300, L3100.5170 ####[facility] [address] [place], [address] Comprehensive Metabolic Prof alon 05-27-2024 Albumin [Mass/Vol] 3.8 g/dL Normal 3.2-5.0 [facility] Comment on above: Performed By: #### L 509.4005, L3300.1750, L3100.5140, L509.3000, L3890.6100, L100.0100, L801.2600, L501.9520, L3100.5125, L506.1000, L3400.0000, L500.4050, B882-1, L509.8000, L3100.5400, L501.9985, L3890.6005, L803.3000, L3890.6300, L3100.5170 ####[facility] [address] [place], [place], [id number] Albumin/Globulin [Mass ratio] 1.0 {ratio} Normal 0.9-2.4 [facility] Comment on above: Performed By: #### L 509.4005, L3300.1750, L3100.5140, L509.3000, L3890.6100, L100.0100, L801.2600, L501.9520, L3100.5125, L506.1000, L3400.0000, L500.4050, B882-1, L509.8000, L3100.5400, L501.9985, L3890.6005, L803.3000, L3890.6300, L3100.5170 ####[facility] [address] [place], [place], [id number] ALK P 86 U/L Normal 45-117 [facility] Comment on above: Performed By: #### L 509.4005, L3300.1750, L3100.5140, L509.3000, L3890.6100, L100.0100, L801.2600, L501.9520, L3100.5125, L506.1000, L3400.0000, L500.4050, B882-1, L509.8000, L3100.5400, L501.9985, L3890.6005, L803.3000, L3890.6300, L3100.5170 ####[facility] [address] [place], [place], [phone] ALT [Catalytic activity/Vol] 59 U/L High 13-56 [facility] Comment on above: Performed By: #### L 509.4005, L3300.1750, L3100.5140, L509.3000, L3890.6100, L100.0100, L801.2600, L501.9520, L3100.5125, L506.1000, L3400.0000, L500.4050, B882-1, L509.8000, L3100.5400, L501.9985, L3890.6005, L803.3000, L3890.6300, L3100.5170 ####[facility] [address] [place], [place], [address] AST [Catalytic activity/Vol] 40 U/L High 15-37 [facility] Comment on above: Performed By: #### L 509.4005, L3300.1750, L3100.5140, L509.3000, L3890.6100, L100.0100, L801.2600, L501.9520, L3100.5125, L506.1000, L3400.0000, L500.4050, B882-1, L509.8000, L3100.5400, L501.9985, L3890.6005, L803.3000, L3890.6300, L3100.5170 ####[facility] [address] [place], [place], [phone] Bilirubin [Mass/Vol] 0.50 mg/dL Normal 0.20-1.00 [facility] Comment on above: Result Comment: For patients on eltrombopag therapy, use of Dimension [place] TBIL is not recommended. Performed By: #### L 509.4005, L3300.1750, L3100.5140, L509.3000, L3890.6100, L100.0100, L801.2600, L501.9520, L3100.5125, L506.1000, L3400.0000, L500.4050, B882-1, L509.8000, L3100.5400, L501.9985, L3890.6005, L803.3000, L3890.6300, L3100.5170 ####[facility] [address] [place], [place], [phone]) BUN/CRE 11.7 RATIO Normal 10-20 [facility] Comment on above: Performed By: #### L 509.4005, L3300.1750, L3100.5140, L509.3000, L3890.6100, L100.0100, L801.2600, L501.9520, L3100.5125, L506.1000, L3400.0000, L500.4050, B882-1, L509.8000, L3100.5400, L501.9985, L3890.6005, L803.3000, L3890.6300, L3100.5170 ####[facility] [address] [place], [place], [phone]) CA,Total 9.1 mg/dL Normal 8.5-10.1 [facility] Comment on above: Performed By: #### L 509.4005, L3300.1750, L3100.5140, L509.3000, L3890.6100, L100.0100, L801.2600, L501.9520, L3100.5125, L506.1000, L3400.0000, L500.4050, B882-1, L509.8000, L3100.5400, L501.9985, L3890.6005, L803.3000, L3890.6300, L3100.5170 ####[facility] [address] [place], [place], [phone] Chloride [Moles/Vol] 107 mmol/L Normal 98-107 [facility] Comment on above: Performed By: #### L 509.4005, L3300.1750, L3100.5140, L509.3000, L3890.6100, L100.0100, L801.2600, L501.9520, L3100.5125, L506.1000, L3400.0000, L500.4050, B882-1, L509.8000, L3100.5400, L501.9985, L3890.6005, L803.3000, L3890.6300, L3100.5170 ####[facility] [address] [place], [place], [phone](826) CO2 [Moles/Vol] 24.0 mmol/L Normal 21.0-32.0 [facility] Comment on above: Performed By: #### L 509.4005, L3300.1750, L3100.5140, L509.3000, L3890.6100, L100.0100, L801.2600, L501.9520, L3100.5125, L506.1000, L3400.0000, L500.4050, B882-1, L509.8000, L3100.5400, L501.9985, L3890.6005, L803.3000, L3890.6300, L3100.5170 ####[facility] [address] [place], [place], [phone]) Creatinine [Mass/Vol] 0.68 mg/dL Normal 0.55-1.02 [facility] Comment on above: Result Comment: The validity of the calculated GFR GFRAA in patients over70 years has not been determined. Clinical correlation isessential. Performed By: #### L 509.4005, L3300.1750, L3100.5140, L509.3000, L3890.6100, L100.0100, L801.2600, L501.9520, L3100.5125, L506.1000, L3400.0000, L500.4050, B882-1, L509.8000, L3100.5400, L501.9985, L3890.6005, L803.3000, L3890.6300, L3100.5170 ####[facility] [address] [place], [place], [phone] EST GFR - AA 126 mL/min Normal >60 [facility] Comment on above: Result Comment: Afri can Palauan GFR Calc Performed By: #### L 509.4005, L3300.1750, L3100.5140, L509.3000, L3890.6100, L100.0100, L801.2600, L501.9520, L3100.5125, L506.1000, L3400.0000, L500.4050, B882-1, L509.8000, L3100.5400, L501.9985, L3890.6005, L803.3000, L3890.6300, L3100.5170 ####[facility] [address] [facility] [place], [address] GAP 7 Normal 5-15 [facility] Comment on above: Performed By: #### L 509.4005, L3300.1750, L3100.5140, L509.3000, L3890.6100, L100.0100, L801.2600, L501.9520, L3100.5125, L506.1000, L3400.0000, L500.4050, B882-1, L509.8000, L3100.5400, L501.9985, L3890.6005, L803.3000, L3890.6300, L3100.5170 ####[facility] [address] [place], [place], [phone] GFR/1.73 sq M.predicted among non-blacks MDRD (S/P/Bld) [Vol rate/Area] 104 mL/min/{1.73_m2} Normal >60 [facility] Comment on above: Result Comment: Non- GFR Calc Performed By: #### L 509.4005, L3300.1750, L3100.5140, L509.3000, L3890.6100, L100.0100, L801.2600, L501.9520, L3100.5125, L506.1000, L3400.0000, L500.4050, B882-1, L509.8000, L3100.5400, L501.9985, L3890.6005, L803.3000, L3890.6300, L3100.5170 ####[facility] [address] [place], [place], [phone]) Globulin (S) [Mass/Vol] 4.0 g/dL Normal 2.2-4.2 [facility] Comment on above: Performed By: #### L 509.4005, L3300.1750, L3100.5140, L509.3000, L3890.6100, L100.0100, L801.2600, L501.9520, L3100.5125, L506.1000, L3400.0000, L500.4050, B882-1, L509.8000, L3100.5400, L501.9985, L3890.6005, L803.3000, L3890.6300, L3100.5170 ####[facility] [address] [place], [place], [phone]) Glucose [Mass/Vol] 98 mg/dL Normal 74-106 [facility] Comment on above: Performed By: #### L 509.4005, L3300.1750, L3100.5140, L509.3000, L3890.6100, L100.0100, L801.2600, L501.9520, L3100.5125, L506.1000, L3400.0000, L500.4050, B882-1, L509.8000, L3100.5400, L501.9985, L3890.6005, L803.3000, L3890.6300, L3100.5170 ####[facility] [address] [place], [place], [phone]) Potassium [Moles/Vol] 3.9 mmol/L Normal 3.5-5.1 [facility] Comment on above: Performed By: #### L 509.4005, L3300.1750, L3100.5140, L509.3000, L3890.6100, L100.0100, L801.2600, L501.9520, L3100.5125, L506.1000, L3400.0000, L500.4050, B882-1, L509.8000, L3100.5400, L501.9985, L3890.6005, L803.3000, L3890.6300, L3100.5170 ####[facility] [address] [place], [address] Sodium [Moles/Vol] 138 mmol/L Normal 136-145 [facility] Comment on above: Performed By: #### L 509.4005, L3300.1750, L3100.5140, L509.3000, L3890.6100, L100.0100, L801.2600, L501.9520, L3100.5125, L506.1000, L3400.0000, L500.4050, B882-1, L509.8000, L3100.5400, L501.9985, L3890.6005, L803.3000, L3890.6300, L3100.5170 ####[facility] [address] [place], [address] T PROT 7.8 g/dL Normal 6.4-8.2 [facility] Comment on above: Performed By: #### L 509.4005, L3300.1750, L3100.5140, L509.3000, L3890.6100, L100.0100, L801.2600, L501.9520, L3100.5125, L506.1000, L3400.0000, L500.4050, B882-1, L509.8000, L3100.5400, L501.9985, L3890.6005, L803.3000, L3890.6300, L3100.5170 ####[facility] [address] [place], [place], [phone] Urea nitrogen [Mass/Vol] 8 mg/dL Normal 7-18 [facility] Comment on above: Performed By: #### L 509.4005, L3300.1750, L3100.5140, L509.3000, L3890.6100, L100.0100, L801.2600, L501.9520, L3100.5125, L506.1000, L3400.0000, L500.4050, B882-1, L509.8000, L3100.5400, L501.9985, L3890.6005, L803.3000, L3890.6300, L3100.5170 ####[facility] [address] [place], [place], [phone] Estradiolon 05-27-2024 ESTRADIOL 133.9 pg/mL Normal [facility] Comment on above: Result Comment: NORM AL [...] L509.8000, L3100.5400, L501.9985, L3890.6005, L803.3000, L3890.6300, L3100.5170 ####[facility] [address] [place], [place], [phone] Follicle Stimulating Hormone on 05-27-2024 FSH 5.8 mIU/mL Normal [facility] Comment on above: Result Comment: NORM AL [...] L509.8000, L3100.5400, L501.9985, L3890.6005, L803.3000, L3890.6300, L3100.5170 ####[facility] [address] [place], [address] HIV - WCHon 05-27-2024 HIV Non-Reactive Normal Nonreactive [facility] Comment on above: Performed By: #### L 509.4005, L3300.1750, L3100.5140, L509.3000, L3890.6100, L100.0100, L801.2600, L501.9520, L3100.5125, L506.1000, L3400.0000, L500.4050, B882-1, L509.8000, L3100.5400, L501.9985, L3890.6005, L803.3000, L3890.6300, L3100.5170 ####[facility] [address] [facility] [place], [address] Hemoglobin A1con 05-27-2024 HbA1c (Bld) [Mass fraction] 5.4 % Normal 3.8-5.6 [facility] Comment on above: Result Comment: Norm al < 5.7 % Prediabetic 5.7 - 6.4 % Diabetic >or= 6.5 % Please note range changes. Performed By: #### L 509.4005, L3300.1750, L3100.5140, L509.3000, L3890.6100, L100.0100, L801.2600, L501.9520, L3100.5125, L506.1000, L3400.0000, L500.4050, B882-1, L509.8000, L3100.5400, L501.9985, L3890.6005, L803.3000, L3890.6300, L3100.5170 ####[facility] [address] [place], [place], [phone] Hepatitis B Surface Antigeno n 05-27-2024 HEP B Surf Ag Non-Reactive Normal Nonreactive [facility] Comment on above: Performed By: #### L 509.4005, L3300.1750, L3100.5140, L509.3000, L3890.6100, L100.0100, L801.2600, L501.9520, L3100.5125, L506.1000, L3400.0000, L500.4050, B882-1, L509.8000, L3100.5400, L501.9985, L3890.6005, L803.3000, L3890.6300, L3100.5170 ####[facility] [address] [facility] [place], [place], [phone] Hepatitis C Antibodyon 05-27 Hepatitis C AB Non-Reactive Normal Nonreactive [facility] Comment on above: Result Comment: Non Reactive: < 0.8 Equivocal: >/= 0.8 to < 1.0 Reactive: >/= 1.0The CDC requires that a reactive/equivocal HCV antibodyresult be sent out for confirmation. HCV Quant by PCRtesting. Performed By: #### L 509.4005, L3300.1750, L3100.5140, L509.3000, L3890.6100, L100.0100, L801.2600, L501.9520, L3100.5125, L506.1000, L3400.0000, L500.4050, B882-1, L509.8000, L3100.5400, L501.9985, L3890.6005, L803.3000, L3890.6300, L3100.5170 ####[facility] [address] [place], [place], [address] L509.8000on 05-27-2024 Syphilis Abs Non-Reactive Normal [facility] Comment on above: Performed By: #### L 509.4005, L3300.1750, L3100.5140, L509.3000, L3890.6100, L100.0100, L801.2600, L501.9520, L3100.5125, L506.1000, L3400.0000, L500.4050, B882-1, L509.8000, L3100.5400, L501.9985, L3890.6005, L803.3000, L3890.6300, L3100.5170 ####[facility] [address] [facility] [place], [place], [phone] Luteinizing Hormoneon 2023 LH 17.0 mIU/mL Normal [facility] Comment on above: Result Comment: NORM AL [...] L509.8000, L3100.5400, L501.9985, L3890.6005, L803.3000, L3890.6300, L3100.5170 ####[facility] [address] [place], [place], [phone] Rubella IgGon 05-27-2024 Rubella IgG Reactive Normal Nonreactive [facility] Comment on above: Result Comment: Anti body Results Interpretation of Immune Status Non Reactive Presumed Non-Immune Equivocal Equivocal Reactive Presumed Immune Performed By: #### L 509.4005, L3300.1750, L3100.5140, L509.3000, L3890.6100, L100.0100, L801.2600, L501.9520, L3100.5125, L506.1000, L3400.0000, L500.4050, B882-1, L509.8000, L3100.5400, L501.9985, L3890.6005, L803.3000, L3890.6300, L3100.5170 ####[facility] [address] [place], [place], [address] Testosterone, Serum Totalon 05-27-2024 Testosterone [Mass/Vol] 44.25 ng/dL Normal [facility] Comment on above: Result Comment: CENT RAL [...] L509.8000, L3100.5400, L501.9985, L3890.6005, L803.3000, L3890.6300, L3100.5170 ####[facility] [address] [place], [place], [address] Thyroid Stim Hormone (TSH)on 05-27-2024 TSH 1.510 uIU/mL Normal 0.358-3.740 [facility] Comment on above: Performed By: #### L 509.4005, L3300.1750, L3100.5140, L509.3000, L3890.6100, L100.0100, L801.2600, L501.9520, L3100.5125, L506.1000, L3400.0000, L500.4050, B882-1, L509.8000, L3100.5400, L501.9985, L3890.6005, L803.3000, L3890.6300, L3100.5170 ####[facility] [address] [place], [id number] Vitamin D,25 Hydroxyon 05-27 Vitamin D 25-OH 29.8 ng/mL Normal [facility] Comment on above: Result Comment: Tara min D 25(OH) Status Range Deficiency <20 ng/mL (50nmol/L) Insufficiency 20 - 30 ng/mL (50 - 75 nmol/L) Sufficiency 30 - 100 ng/mL (75 - 250 nmol/L) Toxicity >100 ng/mL (>250 nmol/L) Performed By: #### L 509.4005, L3300.1750, L3100.5140, L509.3000, L3890.6100, L100.0100, L801.2600, L501.9520, L3100.5125, L506.1000, L3400.0000, L500.4050, B882-1, L509.8000, L3100.5400, L501.9985, L3890.6005, L803.3000, L3890.6300, L3100.5170 ####[facility] [address] [place], [id number] CNOVon 01-12-2024 CNOV Office Visit ([facility] ) -- BARBY CABALLERO ([id number]) 1990 F Date Time Provider Department 01/12/24 10:30 AM GINA SAHU [facility] During your visit today, we recorded the following information about you: Temperature Pulse Respiration Blood pressure 97.9 degrees 134/minute 20/minute 118/78 Weight 120.3 kg Gina Sahu, [facility] 01/12/2024 11:22 AM Signed CC: [...] Patient agreeable to treatment plan. Gina Sahu APRN.CONTRACT DESIGN AGENT Allergies As of Date: 01/12/2024 (No Active [...] MOUTH EVERY (more content not included)... Normal [facility] TSH W/FT4 REFLEXon TSH 1.264 uIU/mL Normal 0.550-4.[address] [facility] Comment on above: Performed By: #### T SHQR #### [facility] (DEFAULT) [address] [id number] PROGESTERONEon 04-03-2023 Progesterone 15.64 ng/mL Normal [facility] Comment on above: Result Comment: This test is not recommended for patients receiving DHEA due to cross reactivity of DHEA S in the progesterone assay. Reference Range: Males: 0.28-1.22 ng/mL Females: Follicular phase 0-1.40 ng/mL Luteal phase 3.34-25.56 ng/mL Midluteal phase 4.44-28.03 ng/mL Postmenopausal 0-0.73 ng/mL Performed By: #### P DIANDRA #### [facility] (DEFAULT) [address] [place] [address] MAMMO DIAGNOSTIC WITH ADRIANA B ILATERALon 01-09-2023 MAMMO DIAGNOSTIC WITH ADRIANA BILATERAL EXAM: MAMMO DIAGNOSTIC WITH ADRIANA BILATERAL, US BREAST LIMITED UNILATERAL RIGHT, 01/09/2023 09:20 AM (accession [id number]), 01/09/2023 09:31 AM (accession [id number]) CLINICAL INDICATIONS: The patient reports right upper [...] Recommendation: Clinical correlation/management. Recommendation Laterality: Right Normal [facility] MG Breast - bilateral Diagno sticon 01-09-2023 IMPRESSION: 1. No suspicious mammographic or sonographic findings in the right breast to explain symptoms. 2. No suspicious mammographic findings in the left breast. BI-RADS: 1: Negative Recommendation: Clinical correlation/management. Recommendation Laterality: Right OLOGY EXAM: MAMMO DIAGNOST IC WITH ADRIANA BILATERAL, US BREAST LIMITED UNILATERAL RIGHT, 01/09/2023 09:20 AM (accession [id number]), 01/09/2023 09:31 AM (accession [id number]) CLINICAL INDICATIONS: The patient reports right upper [...] LIMITED UNILATERAL RIGHT, 01/09/2023 09:20 AM (accession [id number]), 01/09/2023 09:31 AM (accession [id number]) CLINICAL INDICATIONS: The patient reports right upper [...] Negative Recommendation: Clinical correlation/management. Recommendation Laterality: Right [facility] Radiology Study observation (narrative) [facility] MG Breast - bilateral Diagno sticOrdered By: Nettie Trejo on 01-09-2023 [facility] US BREAST LIMITED UNILATERAL RIGHTon 01-09-2023 US BREAST LIMITED UNILATERAL RIGHT EXAM: MAMMO DIAGNOSTIC WITH ADRIANA BILATERAL, US BREAST LIMITED UNILATERAL RIGHT, 01/09/2023 09:20 AM (accession [id number]), 01/09/2023 09:31 AM (accession [id number]) CLINICAL INDICATIONS: The patient reports right upper [...] Recommendation: Clinical correlation/management. Recommendation Laterality: Right Normal [facility] HEMOGLOBIN [id number] By: Sa fred Carbajal on 09-27-2022 Average glucose Estimated from glycated hemoglobin (Bld) [Mass/Vol] 105 mg/dL [facility] HbA1c (Bld) [Mass fraction] 5.3 % 4.7 - 5.6 % [facility] HEMOGLOBIN A1Con 09-27-2022 Glucose [Mass/Vol] 105 mg/dL Normal [facility] Comment on above: Performed By: #### A 1CB #### [facility] (DEFAULT) [address] [address] HbA1c (Bld) [Mass fraction] 5.3 % Normal 4.7-5.[address] [facility] Comment on above: Performed By: #### A 1CB #### [facility] (DEFAULT) [address] [address] LIPID PANEL WITH REFLEX TO M DEE LDLon 09-27-2022 Calculated LDL Cholesterol 51 mg/dL Normal 0-[address] [facility] Comment on above: Result Comment: [<10 0 mg/dL: Optimal] [100-129 mg/dL: Near Optimal] [130-159 mg/dL: Borderline High] [160-189 mg/dL: High] [>189 mg/dL: Very High] Performed By: #### L IPDR #### [facility] (DEFAULT) [address] [place] [address] Cholesterol [Mass/Vol] 122 mg/dL Normal <[address] [facility] Comment on above: Result Comment: [<20 0 mg/dL: Desirable] [200-239 mg/dL: Borderline High] [>239 mg/dL: High] Performed By: #### L IPDR #### [facility] (DEFAULT) [address] [address] Cholesterol in HDL [Mass/Vol] 50 mg/dL Normal >=[address] [facility] Comment on above: Result Comment: [<40 mg/dL: Low (High Risk)] [>59 mg/dL: High (Low Risk)] Performed By: #### L IPDR #### [facility] (DEFAULT) [address] [address] Non HDL Cholesterol 72 mg/dL Normal <[address] [facility] Comment on above: Performed By: #### L IPDR #### [facility] (DEFAULT) [address] [address] Total Cholesterol/HDL Ratio 2.4 Normal <4.[address] [facility] Comment on above: Performed By: #### L IPDR #### [facility] (DEFAULT) [address] [place] [address] Triglyceride [Mass/Vol] 104 mg/dL Normal <[address] [facility] Comment on above: Result Comment: [<15 0 mg/dL: Desirable] [150-199 mg/dL: Borderline] [200-499 mg/dL: High] [>500 mg/dL: Very High] Performed By: #### L IPDR #### [facility] (DEFAULT) [address] [place] [address] Cholesterol [Mass/Vol] 122 mg/dL NINF - 200 mg/dL [facility] Comment on above: [<200 mg/dL: Desirab le] [200-239 mg/dL: Borderline High] [>239 mg/dL: High] Cholesterol in HDL [Mass/Vol] 50 mg/dL 40 - PINF mg/dL [facility] Comment on above: [<40 mg/dL: Low (Hig h Risk)] [>59 mg/dL: High (Low Risk)] Cholesterol in HDL [Mass/Vol] 72 mg/dL NINF - 130 mg/dL [facility] Cholesterol in LDL [Mass/Vol] 51 mg/dL 0 - 99 mg/dL [facility] Comment on above: [<100 mg/dL: Optimal ] [100-129 mg/dL: Near Optimal] [130-159 mg/dL: Borderline High] [160-189 mg/dL: High] [>189 mg/dL: Very High] Cholesterol.total/Cho lesterol in HDL [Mass ratio] 2.4 {ratio} NINF - 4.5 [facility] Interpretation and review of laboratory results Normal [facility] Triglyceride [Mass/Vol] 104 mg/dL NINF - 150 mg/dL [facility] Comment on above: [<150 mg/dL: Desirab le] [150-199 mg/dL: Borderline] [200-499 mg/dL: High] [>500 mg/dL: Very High] [facility] PROLACTINon 09-27-2022 Prolactin [Mass/Vol] 4.4 ng/mL [facility] Comment on above: Reference Range: Females Non: 2.8-29.2 ng/mL : 9.7-208.5 ng/mL Postmenopausal: 1.8-20.3 ng/mL <2 years: 3.3-14.7 ng/mL 2-5 years: 1.0-12.8 ng/mL 6-10 years: 1.2-11.4 ng/mL 11-17 years: 1.4-14.3 ng/mL Males: 2.1-17.7 ng/mL [facility] Prolactin 4.4 ng/mL Normal [facility] Comment on above: Result Comment: Andriy perkins Range: Females Non: 2.8-29.2 ng/mL : 9.7-208.5 ng/mL Postmenopausal: 1.8-20.3 ng/mL <2 years: 3.3-14.7 ng/mL 2-5 years: 1.0-12.8 ng/mL 6-10 years: 1.2-11.4 ng/mL 11-17 years: 1.4-14.3 ng/mL Males: 2.1-17.7 ng/mL Performed By: #### P ROL, TSHQR #### [facility] (DEFAULT) [address] [place] [address] TSH W/FT4 REFLEXon Interpretation and review of laboratory results Normal [facility] TSH Qn 1.680 m[IU]/L [facility] TSH 1.680 uIU/mL Normal 0.550-4.[address] [facility] Comment on above: Performed By: #### P ROL, TSHQR #### [facility] (DEFAULT) [address] [place] [address] CYTOLOGY-Z OS MAINFRAME SYSTEMS PROGRAMMER, 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on 09-05-2022 ---Cytologic Interpretation--- Normal [facility] Comment on above: 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 Result Comment: ? Ne gative for Intraepithelial Lesion or Malignancy ? HPV Results Reported in Attached Report This Pap Test was imaged with the assistance of the [employer] ThinPrep Imaging System and screened by a Fire Prevention Forester. Performed By: #### T HINP #### [facility] (DEFAULT) [address] [place] [address] [address] [facility] Comment on above: 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 Result Comment: Gyne cologic Cytology Report Case: [id number] Authorizing Provider: Faith Starkey MD Collected: 09/05/2022 03:07 PM Ordering Location: Obstetrics and Gynecology Received: 09/05/2022 04:39 PM [facility] [place] [facility] Screen: Tammy Alberto Rescreen: Monika Tenorio Specimen: Cervical/Endocervical, ThinPrep, Cervical/Endocervical Performed By: #### T HINP #### [facility] (DEFAULT) [address] [address] HPV Reflex? HPV HR with genotypi ng if NILM, ASCUS, LSIL (30 and older) Normal [facility] Comment on above: 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 Result Comment: [facility] Im[facility] Performed By: #### T HINP #### [facility] (DEFAULT) [address] [address] LMP 08/05/[address] [facility] Comment on above: 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 Performed By: #### T HINP #### [facility] (DEFAULT) [address] [address] PAP METHOD ThinPrep Normal [facility] Comment on above: 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 Performed By: #### T HINP #### [facility] (DEFAULT) [address] [address] HPV WITH GENOTYPING (WITH VIRGILIO FARRIS)on 09-05-2022 HPV Genotype 16 Negative Normal Negative [facility] Comment on above: 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 HPV DNA detection performed by Real-Time PCR. The assay detects HPV 16, 18, 31, 33, 35, 39, 45, 51, 52, 56, 58, 59, 66, 68.Testing performed at [facility]. Performed By: #### H PVGCO #### [facility] (DEFAULT) [address] [address] HPV Genotype 18 Negative Normal Negative [facility] Comment on above: 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 HPV DNA detection performed by Real-Time PCR. The assay detects HPV 16, 18, 31, 33, 35, 39, 45, 51, 52, 56, 58, 59, 66, 68.Testing performed at [facility]. Performed By: #### H PVGCO #### [facility] (DEFAULT) [address] [address] HPV Other High Risk Types, PCR Negative Normal Negative [facility] Comment on above: 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 HPV DNA detection performed by Real-Time PCR. The assay detects HPV 16, 18, 31, 33, 35, 39, 45, 51, 52, 56, 58, 59, 66, 68.Testing performed at [facility]. Performed By: #### H PVGCO #### [facility] (DEFAULT) [address] [address] COVID-19, MOLECULARon 2020 SARS-CoV-2 (COVID-19) RNA CONCHITA+probe Ql (Unsp spec) Not detected Normal Not Detected [facility] Comment on above: Result Comment: This test was performed under the FDA's Emergency Use Authorization (EUA). Testing was performed using the Xpert?? Xpress SARS-CoV-2/Flu/RSV plus RT-PCR Moprise assay on the [employer] Xpress System. This test has not been approved for use in asymptomatic patients and its performance in this patient population has not been evaluated. Negative results do not rule out the presence of SARS-CoV-2/COVID-19. Fact sheets for this EUA can be found at the following links: For Healthcare Providers: https://www.fda.gov/media/126567/download For Patients: https://www.fda.gov/[employer]/439617/download Performed By: #### L [id number] #### [facility] [address] [address] Xiang Chahal M[address]D. [id number] CT ABDOMEN PELVIS WITH IV CO NTRAST [...] of significance including no evidence for appendicitis. [employer] Workstation ID: [id number] Dictated by: DECLAN MESSER on SatSep 15, 2021 12:10:30 PM EST Transcribed by: CARLOS WEATHERS on SatSep 15, 2021 12:18:43 PM EST Finalized by: DECLAN MESSER on SatSep 15, 2021 2:13:51 PM EST Normal [facility] Comment on above: Order Comment: Injur y/Trauma [...] SatSep 15, 2021 3:56:08 PM EST Normal [facility] Comment on above: Order Comment: Injur y/Trauma [...] SatSep 15, 2021 9:36:51 AM EST Normal [facility] Comment on above: Order Comment: US Ga llbladder Injury/Trauma or Illness?:Illness/Other How long have you had these symptoms (acute/chronic)?:Acute Reason for exam?:RUQ pain History of cancer?:no Surgeries, chemotherapy, or radiation?:no Type of Exam?:Initial Additional signs and symptoms?:none COVID-19, MOLECULARon 2019 INTERNAL CONTROL (ABBOT ID) Pass Normal [facility] SARS-COV-2 (SPEARS ID) Not Detected Normal Not Detected [facility] POC COVID-19 Molecularon Internal Control Pass [facility] Interpretation and review of laboratory results Normal [facility] SARS-CoV-2 Not Detected Not Detected [facility] BMPon 07-29-2019 Anion gap [Moles/Vol] 19 mmol/L 10 - 2 0 mmol/L [facility] Calcium [Mass/Vol] 9.6 mg/dL 8.4 - 10. 2 mg/dL [facility] Chloride [Moles/Vol] 105 mmol/L 98 - 10 8 mmol/L [facility] Creatinine [Mass/Vol] 0.62 mg/dL 0.4 - 1.1 mg/dL [facility] GFR/1.73 sq M predicted among non-blacks MDRD (S/P/Bld) [Vol rate/Area] The eGFR should be used for monitoring renal function only and not for medication dosing. [facility] GFR/1.73 sq M.predicted CKD-EPI (S/P/Bld) [Vol rate/Area] 122 >=60 mL/min/1.73 m2 [facility] Glucose [Mass/Vol] 104 mg/dL High 65 - 99 mg/dL [facility] HCO3 [Moles/Vol] 22 mmol/L 21 - 32 mmol/L [facility] Interpretation and review of laboratory results Abnormal [facility] Potassium [Moles/Vol] 4.2 mmol/L 3.5 - 5.1 mmol/L [facility] Sodium [Moles/Vol] 142 mmol/L 135 - 145 mmol/L [facility] Urea nitrogen [Mass/Vol] 11 mg/dL 8 - 25 mg/dL [facility] Urea nitrogen/Creatinine [Mass ratio] 17.7 mg/mg [facility] CBC WITH AUTO DIFFERENTIALon 07-29-2019 Basophils (Bld) [#/Vol] 0.03 10*3/uL [facility] Basophils/100 WBC (Bld) 0.3 % [facility] Eosinophils (Bld) [#/Vol] 0.14 10*3/uL [facility] Eosinophils/100 WBC (Bld) 1.2 % [facility] Erythrocyte distribution width (RBC) [Entitic vol] 13.9 % 11.6 - 14.8 % [facility] Hematocrit (Bld) [Volume fraction] 41.0 % 36 - 46 % [facility] Hemoglobin (Bld) [Mass/Vol] 13.0 g/dL 12 - 16 g/dL [facility] Interpretation and review of laboratory results Abnormal [facility] Lymphocytes (Bld) [#/Vol] 3.19 10*3/uL [facility] Lymphocytes/100 WBC (Bld) 28.0 % [facility] MCH (RBC) [Entitic mass] 26.3 pg 26 - 34 pg [facility] MCHC (RBC) [Mass/Vol] 31.7 g/dL 31 - 37 g/dL [facility] MCV (RBC) [Entitic vol] 82.8 fL 80 - 100 fL [facility] Monocytes (Bld) [#/Vol] 0.45 10*3/uL [facility] Monocytes/100 WBC (Bld) 4.0 % [facility] Neutrophils (Bld) [#/Vol] 7.57 10*3/uL High [facility] Neutrophils/100 WBC (Bld) 66.5 % [facility] Nucleated RBC (Bld) [#/Vol] 0.00 10*3/uL [facility] Nucleated RBC/100 WBC (Bld) [Ratio] 0.0 % [facility] Platelet mean volume (Bld) [Entitic vol] 8.9 fL Low 9 - 15.5 fL [facility] Platelets (Bld) [#/Vol] 353 10*3/uL [facility] RBC (Bld) [#/Vol] 4.95 10*6/uL [facility] WBC (Bld) [#/Vol] 11.38 10*3/uL High [facility] Hepatic Function Panel (LFT) on 07-29-2019 Albumin [Mass/Vol] 4.3 g/dL 3.2 - 5.2 g/dL [facility] ALP [Catalytic activity/Vol] 83 U/L 40 - 140 U/L [facility] ALT [Catalytic activity/Vol] 19 U/L 0 - 40 U/L [facility] AST [Catalytic activity/Vol] 16 U/L 0 - 45 U/L [facility] Bilirubin [Mass/Vol] mg/dL 0 - 1.3 mg/dL [facility] Bilirubin.conjugated [Mass/Vol] mg/dL 0 - 0.4 mg/dL [facility] Protein [Mass/Vol] 7.6 g/dL 6 - 8 g/dL [facility] Lipaseon 07-29-2019 Lipase [Catalytic activity/Vol] 30 U/L 15 - 65 U/L [facility] Otheron 07-29-2019 Interpretation and review of laboratory results Normal [facility] Interpretation and review of laboratory results Normal [facility] POC Urinalysis Dipstickon Bilirubin Ql (U) Negative Negative [facility] Glucose Ql (U) Negative Normal, Negative mg/dL [facility] Hemoglobin Ql (U) Negative Negative [facility] Ketones Ql (U) Negative Negative mg/dL [facility] Leukocyte esterase Test strip Ql (U) Negative Negative [facility] Nitrite Ql (U) Negative Negative [facility] pH (U) 5.0 [pH] [facility] Protein Ql (U) Negative Negative mg/dL [facility] Urobilinogen Qn (U) Negative <2.0, 0. 2, Normal, Negative, 1.0, 2.0, <1.0 mg/dL [facility] POC Urine Pregnancyon 2018 HCG ( test) Ql (U) Negative Negative [facility] Internal Control Pass [facility] US ABDOMEN LIMITED STUDYon 1 1. There is a small 4 mm echogenic focus in the nondependent portion of the gallbladder wall which may reflect a small amount of adherent gallbladder sludge or a small benign cholesterol polyp. No further follow-up is required. 2. Otherwise unremarkable right upper quadrant abdominal ultrasound. [employer] Workstation ID: [id number] [facility] EXAMINATION: US ABDO MEN LIMITED STUDY HISTORY: [...] free fluid in the right upper quadrant. [facility] Interface, Rad In Fu ji Speechq - [...] quadrant abdominal ultrasound. [employer] Workstation ID: [id number] [facility] Urinalysison 07-29-2019 Specific gravity (U) [Rel density] 1.005 [facility] BMPon 03-19-2019 Anion gap [Moles/Vol] 17 mmol/L 10 - 2 0 mmol/L [facility] Calcium [Mass/Vol] 9.9 mg/dL 8.4 - 10. 2 mg/dL [facility] Chloride [Moles/Vol] 104 mmol/L 98 - 10 8 mmol/L [facility] Creatinine [Mass/Vol] 0.60 mg/dL 0.4 - 1.1 mg/dL [facility] GFR/1.73 sq M predicted among non-blacks MDRD (S/P/Bld) [Vol rate/Area] The eGFR should be used for monitoring renal function only and not for medication dosing. [facility] GFR/1.73 sq M.predicted CKD-EPI (S/P/Bld) [Vol rate/Area] 124 >=60 mL/min/1.73 m2 [facility] Glucose [Mass/Vol] 115 mg/dL High 65 - 99 mg/dL [facility] HCO3 [Moles/Vol] 23 mmol/L 21 - 32 mmol/L [facility] Interpretation and review of laboratory results Abnormal [facility] Potassium [Moles/Vol] 3.9 mmol/L 3.5 - 5.1 mmol/L [facility] Sodium [Moles/Vol] 140 mmol/L 135 - 145 mmol/L [facility] Urea nitrogen [Mass/Vol] 9 mg/dL 8 - 25 mg/dL [facility] Urea nitrogen/Creatinine [Mass ratio] 15.0 mg/mg [facility] CBC WITH AUTO DIFFERENTIALon 03-19-2019 Basophils (Bld) [#/Vol] 0.04 10*3/uL [facility] Basophils/100 WBC (Bld) 0.2 % [facility] Eosinophils (Bld) [#/Vol] 0.35 10*3/uL [facility] Eosinophils/100 WBC (Bld) 2.1 % [facility] Erythrocyte distribution width (RBC) [Entitic vol] 14.0 % 11.6 - 14.8 % [facility] Hematocrit (Bld) [Volume fraction] 41.7 % 36 - 46 % [facility] Hemoglobin (Bld) [Mass/Vol] 13.4 g/dL 12 - 16 g/dL [facility] Interpretation and review of laboratory results Abnormal [facility] Lymphocytes (Bld) [#/Vol] 5.33 10*3/uL High [facility] Lymphocytes/100 WBC (Bld) 31.6 % [facility] MCH (RBC) [Entitic mass] 26.2 pg 26 - 34 pg [facility] MCHC (RBC) [Mass/Vol] 32.1 g/dL 31 - 37 g/dL [facility] MCV (RBC) [Entitic vol] 81.4 fL 80 - 100 fL [facility] Monocytes (Bld) [#/Vol] 0.93 10*3/uL High [facility] Monocytes/100 WBC (Bld) 5.5 % [facility] Neutrophils (Bld) [#/Vol] 10.22 10*3/uL High [facility] Neutrophils/100 WBC (Bld) 60.6 % [facility] Nucleated RBC (Bld) [#/Vol] 0.00 10*3/uL [facility] Nucleated RBC/100 WBC (Bld) [Ratio] 0.0 % [facility] Platelet mean volume (Bld) [Entitic vol] 8.7 fL Low 9 - 15.5 fL [facility] Platelets (Bld) [#/Vol] 418 10*3/uL High [facility] RBC (Bld) [#/Vol] 5.12 10*6/uL [facility] WBC (Bld) [#/Vol] 16.87 10*3/uL [facility] D-DIMER, QUANTITATIVEon 03-01 Fibrin D-dimer FEU (PPP) [Mass/Vol] 0.42 0.27 - 0.49 mcg/mL FEU [facility] Interpretation and review of laboratory results Normal [facility] A D-dimer concentrat ion of <0.5 micrograms per milliliter FEU is considered a low probability for pulmonary embolus (PE) and deep venous thrombosis (DVT). Results of this test should always be interpreted in conjunction with the patient's medical history,clinical presentation, and other findings. Clinical diagnosis should not be based on the results of the D-dimer alone. [facility] Hepatic Function Panel (LFT) on 03-19-2019 Albumin [Mass/Vol] 4.4 g/dL 3.2 - 5.2 g/dL [facility] ALP [Catalytic activity/Vol] 109 U/L 40 - 140 U/L [facility] ALT [Catalytic activity/Vol] 17 U/L 0 - 40 U/L [facility] AST [Catalytic activity/Vol] 16 U/L 0 - 45 U/L [facility] Bilirubin [Mass/Vol] mg/dL 0 - 1.3 mg/dL [facility] Bilirubin.conjugated [Mass/Vol] mg/dL 0 - 0.4 mg/dL [facility] Protein [Mass/Vol] 8.0 g/dL 6 - 8 g/dL [facility] Lipaseon 03-19-2019 Lipase [Catalytic activity/Vol] 39 U/L 15 - 65 U/L [facility] Otheron 03-19-2019 Extra Tube Hold for add-ons. [facility] Comment on above: Auto resulted. Interpretation and review of laboratory results Normal [facility] POC Urine Pregnancyon 2018 HCG ( test) Ql (U) Negative Negative [facility] Internal Control Pass [facility] Interpretation and review of laboratory results Normal [facility] Specific gravity (U) [Rel density] 1.005 [facility] TROPONINon 03-19-2019 Troponin T.cardiac [Mass/Vol] ug/L <=14 ng/L [facility] Troponin T.cardiac [Mass/Vol] No biomarker evidence of cardiac injury. [facility] Troponin T.cardiac [Mass/Vol] ug/L <=14 ng/L [facility] Troponin T.cardiac [Mass/Vol] Normal [facility] XR CHEST AP/PA AND LATon Mild perihilar and lingular/bibasilar atelectatic change with no other acute process. [facility] Workstation ID: [id number] [facility] Interface, Rad In [employer] [...] other acute process. [facility] Workstation ID: [id number] [facility] EXAMINATION: XR CHES T AP/PA AND LAT [...] unremarkable. There is no acute osseous abnormality. [facility] ECG 12-LEADon 03-18-2019 Jennifer Fernandes 03/19/2019 3:41 AM EKG 12-lead Date/Time: 03/18/2019 11:49 PM Performed by: Laurent Duque MD Authorized by: Laurent Duque MD Interpreted by ED attending physician Comparison: not compared with previous ECG BPM: 103 Comments: Rate 103, sinus tachycardia, normal QRS interval, normal axis, no acute ST elevation, interpreted by [facility] Vital Signs Date Time Vital Sign Value Performing Clinician Facility 05-15-2025 13:15-0400 Body temperature 98.5 [degF] Dr. Steffen Eisenberg MD Work Phone: [facility] 05-15-2025 13:15-0400 Diastolic blood pressure 62 mm[Hg] Dr. Steffen Eisenberg MD Work Phone: [facility] 05-15-2025 13:15-0400 Heart rate 107 /min Dr. Steffen Eisenberg MD Work Phone: [facility] 05-15-2025 13:15-0400 Respiratory rate 16 /min Dr. Steffen Eisenberg MD Work Phone: [facility] 05-15-2025 13:15-0400 SaO2% (BldA) [Mass fraction] 98 % Dr. Steffen Eisenberg MD Work Phone: [facility] 05-15-2025 13:15-0400 Systolic blood pressure 115 mm[Hg] Dr. Steffen Eisenberg MD Work Phone: [facility] 05-12-2025 06:26-0400 Body height 157.[address] Steffen Eisenberg MD Work Phone: [facility] 05-12-2025 06:26-0400 Body mass index (BMI) [Ratio] 48.7 kg/m2 Dr. Steffen Eisenberg MD Work Phone: [facility] 05-12-2025 06:26-0400 Body weight [address] Steffen Eisenberg MD Work Phone: [facility] 05-06-2025 14:10-0400 Body height 157.[address] Steffen Eisenberg MD Work Phone: [facility] 05-06-2025 14:09-0400 Body mass index (BMI) [Ratio] 49.6 kg/m2 Dr. Steffen Eisenberg MD Work Phone: [facility] 05-06-2025 14:09-0400 Body weight [address] Steffen Eisenberg MD Work Phone: [facility] 05-06-2025 14:09-0400 Diastolic blood pressure 84 mm[Hg] Dr. Steffen Eisenberg MD Work Phone: [facility] 05-06-2025 14:09-0400 Systolic blood pressure 125 mm[Hg] Dr. Steffen Eisenberg MD Work Phone: [facility] 04-28-2025 14:05-0400 Body height 157.[address] Steffen Eisenberg MD Work Phone: [facility] 04-28-2025 14:03-0400 Body mass index (BMI) [Ratio] 48.5 kg/m2 Dr. Steffen Eisenberg MD Work Phone: [facility] 04-28-2025 14:03-0400 Body weight 120.[address] Steffen Eisenberg MD Work Phone: [facility] 04-28-2025 14:03-0400 Diastolic blood pressure 86 mm[Hg] Dr. Steffen Eisenbreg MD Work Phone: [facility] 04-28-2025 14:03-0400 Systolic blood pressure 123 mm[Hg] Dr. Steffen Eisenberg MD Work Phone: [facility] 04-20-2025 14:13-0400 Body height 157.[address] Steffen Eisenberg MD Work Phone: [facility] 04-20-2025 14:13-0400 Body mass index (BMI) [Ratio] 49 kg/m2 Dr. Steffen Eisenberg MD Work Phone: [facility] 04-20-2025 14:13-0400 Body weight 121.[address] Steffen Eisenberg MD Work Phone: [facility] 04-20-2025 14:13-0400 Diastolic blood pressure 81 mm[Hg] Dr. Steffen Eisenberg MD Work Phone: [facility] 04-20-2025 14:13-0400 Systolic blood pressure 116 mm[Hg] Dr. Steffen Eisenberg MD Work Phone: [facility] 04-19-2025 10:29-0400 Heart rate 115 /min Dr. Steffen Eisenberg MD Work Phone: [facility] 04-19-2025 10:29-0400 SaO2% (BldA) [Mass fraction] 96 % Dr. Steffen Eisenberg MD Work Phone: [facility] 04-19-2025 10:03-0400 Body height 157.[address] Steffen Eisenberg MD Work Phone: [facility] 04-19-2025 10:03-0400 Body mass index (BMI) [Ratio] 49.2 kg/m2 Dr. Steffen Eisenberg MD Work Phone: [facility] 04-19-2025 10:03-0400 Body weight 122.[address] Steffen Eisenberg MD Work Phone: [facility] 04-19-2025 09:57-0400 Body temperature 98.4 [degF] Dr. Steffen Eisenberg MD Work Phone: [facility] 04-19-2025 09:57-0400 Respiratory rate 20 /min Dr. Steffen Eisenberg MD Work Phone: [facility] 04-19-2025 09:56-0400 Diastolic blood pressure 80 mm[Hg] Dr. Steffen Eisenberg MD Work Phone: [facility] 04-19-2025 09:56-0400 Systolic blood pressure 132 mm[Hg] Dr. Steffen Eisenberg MD Work Phone: [facility] 04-07-2025 10:00-0400 Body height 157.[address] Steffen Eisenberg MD Work Phone: [facility] 04-07-2025 10:00-0400 Body mass index (BMI) [Ratio] 49 kg/m2 Dr. Steffen Eisenberg MD Work Phone: [facility] 04-07-2025 10:00-0400 Body weight 121.[address] Steffen Eisenberg MD Work Phone: [facility] 04-07-2025 10:00-0400 Diastolic blood pressure 80 mm[Hg] Dr. Steffen Eisenberg MD Work Phone: [facility] 04-07-2025 10:00-0400 Systolic blood pressure 119 mm[Hg] Dr. Steffen Eisenberg MD Work Phone: [facility] 03-26-2025 14:17-0400 Body height 157.[address] Steffen Eisenberg MD Work Phone: [facility] 03-26-2025 14:15-0400 Body mass index (BMI) [Ratio] 48.9 kg/m2 Dr. Steffen Eisenberg MD Work Phone: [facility] 03-26-2025 14:15-0400 Body weight 121.[address] Steffen Eisenberg MD Work Phone: [facility] 03-26-2025 14:15-0400 Diastolic blood pressure 82 mm[Hg] Dr. Steffen Eisenberg MD Work Phone: [facility] 03-26-2025 14:15-0400 Systolic blood pressure 131 mm[Hg] Dr. Steffen Eisenberg MD Work Phone: [facility] 03-10-2025 14:28-0400 Body height 157.[address] Steffen Eisenberg MD Work Phone: [facility] 03-10-2025 14:24-0400 Body mass index (BMI) [Ratio] 48.5 kg/m2 Dr. Steffen Eisenberg MD Work Phone: [facility] 03-10-2025 14:24-0400 Body weight 120.[address] Steffen Eisenberg MD Work Phone: [facility] 03-10-2025 14:24-0400 Diastolic blood pressure 76 mm[Hg] Dr. Steffen Eisenberg MD Work Phone: [facility] 03-10-2025 14:24-0400 Systolic blood pressure 110 mm[Hg] Dr. Steffen Eisenberg MD Work Phone: [facility] 02-26-2025 08:45-0400 Body height 157.[address] Steffen Eisenberg MD Work Phone: [facility] 02-26-2025 08:45-0400 Body mass index (BMI) [Ratio] 48.3 kg/m2 Dr. Steffen Eisenberg MD Work Phone: [facility] 02-26-2025 08:45-0400 Body weight 119.[address] Steffen Eisenberg MD Work Phone: [facility] 02-26-2025 08:45-0400 Diastolic blood pressure 66 mm[Hg] Dr. Steffen Eisenberg MD Work Phone: [facility] 02-26-2025 08:45-0400 Systolic blood pressure 102 mm[Hg] Dr. Steffen Eisenberg MD Work Phone: [facility] 01-29-2025 10:30-0400 Body mass index (BMI) [Ratio] 47.7 kg/m2 Dr. Steffen Eisenberg MD Work Phone: [facility] 01-29-2025 10:30-0400 Body weight 118.[address] Steffen Eisenberg MD Work Phone: [facility] 01-29-2025 10:30-0400 Diastolic blood pressure 81 mm[Hg] Dr. Steffen Eisenberg MD Work Phone: [facility] 01-29-2025 10:30-0400 Systolic blood pressure 114 mm[Hg] Dr. Steffen Eisenberg MD Work Phone: [facility] 01-01-2025 10:10-0400 Body mass index (BMI) [Ratio] 47.9 kg/m2 Dr. Steffen Eisenberg MD Work Phone: [facility] 01-01-2025 10:10-0400 Body weight 118.[address] Steffen Eisenberg MD Work Phone: [facility] 01-01-2025 10:10-0400 Diastolic blood pressure 82 mm[Hg] Dr. Steffen Eisenberg MD Work Phone: [facility] 01-01-2025 10:10-0400 Systolic blood pressure 125 mm[Hg] Dr. Steffen Eisenberg MD Work Phone: [facility] 12-03-2024 13:32-0500 Body mass index (BMI) [Ratio] 47.9 kg/m2 Dr. Steffen Eisenberg MD Work Phone: [facility] 12-03-2024 13:32-0500 Body weight 119.[address] Steffen Eisenberg MD Work Phone: [facility] 12-03-2024 13:32-0500 Diastolic blood pressure 82 mm[Hg] Dr. Steffen Eisenberg MD Work Phone: [facility] 12-03-2024 13:32-0500 Systolic blood pressure 120 mm[Hg] Dr. Steffen Eisenberg MD Work Phone: [facility] 11-10-2024 22:23-0500 Body temperature 98.2 [degF] Dr. Steffen Eisenberg MD Work Phone: [facility] 11-10-2024 22:23-0500 Diastolic blood pressure 97 mm[Hg] Dr. Steffen Eisenberg MD Work Phone: [facility] 11-10-2024 22:23-0500 Heart rate 115 /min Dr. Steffen Eisenberg MD Work Phone: [facility] 11-10-2024 22:23-0500 Respiratory rate 18 /min Dr. Steffen Eisenberg MD Work Phone: [facility] 11-10-2024 22:23-0500 SaO2% (BldA) [Mass fraction] 99 % Dr. Steffen Eisenberg MD Work Phone: [facility] 11-10-2024 22:23-0500 Systolic blood pressure 139 mm[Hg] Dr. Steffen Eisenberg MD Work Phone: [facility] 11-10-2024 18:31-0500 Body mass index (BMI) [Ratio] 47.4 kg/m2 Dr. Steffen Eisenberg MD Work Phone: [facility] 11-10-2024 18:31-0500 Body weight 117.[address] Steffen Eisenberg MD Work Phone: [facility] 11-05-2024 14:27-0500 Body mass index (BMI) [Ratio] 47.5 kg/m2 Dr. Steffen Eisenberg MD Work Phone: [facility] 11-05-2024 14:27-0500 Body weight 117.[address] Steffen Eisenberg MD Work Phone: [facility] 11-05-2024 14:27-0500 Diastolic blood pressure 89 mm[Hg] Dr. Steffen Eisenberg MD Work Phone: [facility] 11-05-2024 14:27-0500 Systolic blood pressure 125 mm[Hg] Dr. Steffen Eisenberg MD Work Phone: [facility] 01-12-2024 11:02-0400 Body temperature 97.9 [degF] Gnia Sahu APRN.CONTRACT DESIGN AGENT Work Phone: [facility] 01-12-2024 11:02-0400 Body weight 120.3 kg Gina Sahu APRN.CONTRACT DESIGN AGENT Work Phone: [facility] 01-12-2024 11:02-0400 Diastolic blood pressure 78 mm[Hg] Gina Sahu APRN.CONTRACT DESIGN AGENT Work Phone: [facility] 01-12-2024 11:02-0400 Heart rate 134 /min Gina Sahu APRN.CONTRACT DESIGN AGENT Work Phone: [facility] 01-12-2024 11:02-0400 Respiratory rate 20 /min Gina Sahu APRN.CONTRACT DESIGN AGENT Work Phone: [facility] 01-12-2024 11:02-0400 SaO2% (BldA) [Mass fraction] 100 % Gina Sahu APRN.CONTRACT DESIGN AGENT Work Phone: [facility] 01-12-2024 11:02-0400 Systolic blood pressure 118 mm[Hg] Gina Sahu APRN.CONTRACT DESIGN AGENT Work Phone: [facility] 11-04-2023 11:53-0500 Body height 157.48 cm [facility] 11-04-2023 11:53-0500 Body mass index (BMI) [Ratio] 48.1 kg/m2 [facility] 11-04-2023 11:53-0500 Body weight 119.4 kg MARTA DEL VALLE [facility] 11-04-2023 11:53-0500 Diastolic blood pressure 89 mm[Hg] MARTA DEL VALLE [facility] 11-04-2023 11:53-0500 Systolic blood pressure 125 mm[Hg] [facility] 09-27-2022 09:42-0500 Body height 158.1 cm Marta Del Valle MD Work Phone: [facility] 09-27-2022 09:42-0500 Body mass index (BMI) [Ratio] 42.84 kg/m2 Marta Del Valle MD Work Phone: [facility] 09-27-2022 09:42-0500 Body weight 107.11 kg Marta Del Valle MD Work Phone: [facility] 09-27-2022 09:42-0500 Diastolic blood pressure 72 mm[Hg] Marta Del Valle MD Work Phone: [facility] 09-27-2022 09:42-0500 Heart rate 113 /min Marta Del Valle MD Work Phone: [facility] 09-27-2022 09:42-0500 SaO2% (BldA) [Mass fraction] 99 % Marta Del Valle MD Work Phone: [facility] 09-27-2022 09:42-0500 Systolic blood pressure 114 mm[Hg] Marta Del Valle MD Work Phone: [facility] 09-05-2022 13:25-0500 Body height 157.5 cm Faith Starkey MD Work Phone: [facility] 09-05-2022 13:25-0500 Body mass index (BMI) [Ratio] 42.43 kg/m2 Faith Starkey MD Work Phone: [facility] 09-05-2022 13:25-0500 Body weight 105.23 kg Faith Starkey MD Work Phone: 3(056)501-320904 [address] 09-05-2022 13:25-0500 Diastolic blood pressure 70 mm[Hg] Faith Starkey MD Work Phone: 8(142)354-324704 [address] 09-05-2022 13:25-0500 Systolic blood pressure 124 mm[Hg] Faith Starkey MD Work Phone: 5(077)785-846802 [place] [address] 05-17-2021 13:53-0400 Body height 157.5 cm Faith Starkey MD Work Phone: 2(932)376-193502 [place] [address] 05-17-2021 13:53-0400 Body mass index (BMI) [Ratio] 44.45 kg/m2 Faith Starkey MD Work Phone: 8(761)392-280102 [place] [address] 05-17-2021 13:53-0400 Body weight 110.22 kg Faith Starkey MD Work Phone: 9(475)050-361902 [place] [address] 05-17-2021 13:53-0400 Diastolic blood pressure 78 mm[Hg] Faith Starkey MD Work Phone: 6(806)599-042404 [address] 05-17-2021 13:53-0400 Systolic blood pressure 118 mm[Hg] Faith Starkey MD Work Phone: 7(003)280-792602 [place] [address] 07-27-2020 10:34-0400 BP Diastolic 88 mm[Hg] Marli Thompson [facility] 07-27-2020 10:34-0400 BP Systolic 132 mm[Hg] Marli Thompson [facility] 07-27-2020 10:32-0400 BMI (Body Mass Index) 41.5 kg/m2 Marli Thompson [facility] 07-27-2020 10:32-0400 Body Temperature 99.19 [degF] Marli Jay [facility] 07-27-2020 10:32-0400 Body weight 102.92 kg Marli Thompson [facility] 07-27-2020 10:32-0400 Pulse (Heart Rate) 108 /min Marli Thompson [facility] 07-27-2020 10:32-0400 Pulse Oximetry 98 % Marli Thompson [facility] 07-27-2020 10:32-0400 Respiratory Rate 16 /min Marli Thompson [facility] 08-19-2019 10:49-0500 BMI (Body Mass Index) 38.89 kg/m2 [facility] 08-19-2019 10:49-0500 Body Temperature 98.2 [degF] [facility] 08-19-2019 10:49-0500 Body weight 96.44 kg [facility] 08-19-2019 10:49-0500 BP Diastolic 84 mm[Hg] [facility] 08-19-2019 10:49-0500 BP Systolic 135 mm[Hg] [facility] 08-19-2019 10:49-0500 Height 157.5 cm [facility] 08-19-2019 10:49-0500 Pulse (Heart Rate) 106 /min [facility] 07-29-2019 13:20-0400 Pulse (Heart Rate) 86 /min [facility] 07-29-2019 13:20-0400 Pulse Oximetry 98 % [facility] 07-29-2019 10:27-0400 BMI (Body Mass Index) 39.32 kg/m2 [facility] 07-29-2019 10:27-0400 Body Temperature 97.81 [degF] [facility] 07-29-2019 10:27-0400 Body weight 97.52 kg [facility] 07-29-2019 10:27-0400 BP Diastolic 77 mm[Hg] [facility] 07-29-2019 10:27-0400 BP Systolic 126 mm[Hg] [facility] 07-29-2019 10:27-0400 Height 157.5 cm [facility] 07-29-2019 10:27-0400 Respiratory Rate 18 /min [facility] 03-18-2019 23:29-0400 Body Temperature 98.91 [degF] Laurent [facility] 03-18-2019 23:29-0400 BP Diastolic 89 mm[Hg] Laurent [facility] 03-18-2019 23:29-0400 BP Systolic 149 mm[Hg] Laurent [facility] 03-18-2019 23:29-0400 Pulse (Heart Rate) 105 /min Laurent [facility] 03-18-2019 23:29-0400 Pulse Oximetry 100 % Laurent [facility] 03-18-2019 23:29-0400 Respiratory Rate 16 /min Laurent [facility] 03-18-2019 23:27-0400 BMI (Body Mass Index) 43.46 kg/m2 Laurent [facility] 03-18-2019 23:27-0400 Body weight 104.33 kg Laurent [facility] 03-18-2019 23:27-0400 Height 154.9 cm Laurent [facility] 02-18-2019 10:46-0400 BMI (Body Mass Index) 42.54 kg/m2 Janes Gutiérrez [facility] 02-18-2019 10:46-0400 Body Temperature 98.4 [degF] Janes Gutiérrez [facility] 02-18-2019 10:46-0400 Body weight 105.51 kg Janes Gutiérrez [facility] 02-18-2019 10:46-0400 BP Diastolic 96 mm[Hg] Janes Gutiérrez [facility] 02-18-2019 10:46-0400 BP Systolic 143 mm[Hg] Janes Gutiérrez [facility] 02-18-2019 10:46-0400 Height 157.5 cm Janes Gutiérrez [facility] 02-18-2019 10:46-0400 Pulse (Heart Rate) 109 /min Janes Gutiérrez [facility] 08-20-2018 08:52-0500 BMI (Body Mass Index) 41.77 kg/m2 Janes Gutiérrez [facility] 08-20-2018 08:52-0500 Body Temperature 98.1 [degF] Janes Gutiérrez [facility] 08-20-2018 08:52-0500 BP Diastolic 86 mm[Hg] Janes Gutiérrez [facility] 08-20-2018 08:52-0500 BP Systolic 120 mm[Hg] Janes Gutiérrez [facility] 08-20-2018 08:52-0500 Height 157.5 cm Janes Gutiérrez [facility] 08-20-2018 08:52-0500 Pulse (Heart Rate) 118 /min Janes Gutiérrez [facility] 08-20-2018 08:52-0500 Weight 103.6 kg Janes Gutiérrez [facility] Encounters Encounter Date Encounter Type Care Provider Facility Start: 05-26-2025 ambulatory Steffen Eisenberg Facility :[facility] Start: 05-15-2025 Non-patient / Non-visit Mariana Noe [facility] Start: 05-14-2025 Non-patient / Non-visit Mariana Coll [facility] Start: 05-13-2025 Non-patient / Non-visit Dr. Elena Lao MD -[facility] Start: 05-12-2025 Non-patient / Non-visit Dr. Mickey Bullock DO [facility] Start: 05-12-2025 ambulatory Steffen Eisenberg Facility :[facility] Start: 05-12-2025 End: 05-15-2025 Evaluation and management of inpatient Dr. Edel Bullock DO [facility] Work Phone: Start: 05-10-2025 End: 05-10-20[facility] Start: 05-06-2025 End: 05-06-[address] Edel Bullock DO -[facility] Work Phone: Start: 05-06-2025 End: 05-06-[address] Steffen Eisenberg MD Work Phone: -[facility] Start: 05-06-2025 End: 05-06-2025 ambulatory EDEL ROCK [facility] Start: 05-03-2025 End: 05-03-2025 ambulatory SAAD BRADLEY [facility] Start: 04-29-2025 End: 04-29-2025 ambulatory EDEL ROCK [facility] Start: 04-28-2025 End: 04-28-[address] Steffen Eisenberg MD Work Phone: -Laboratory Specimen Start: 04-28-2025 End: 04-28-[address] Edel Bullock DO -[facility] Work Phone: Start: 04-28-2025 End: 04-28-[address] Edel Bullock DO -[facility] Work Phone: Start: 04-28-2025 End: 04-28-[address] Steffen Eisenberg MD Work Phone: -[facility] Start: 04-28-2025 End: 04-28-2025 ambulatory Steffen Eisenberg Facility:[facility] Start: 04-26-2025 End: 04-26-2025 ambulatory EDEL ROCK [facility] Start: 04-22-2025 End: 04-22-[address] Steffen Eisenberg MD Work Phone: -[facility] Start: 04-22-2025 End: 04-22-[address] Edel Bullock DO -[facility] Work Phone: Start: 04-22-2025 End: 04-22-2025 ambulatory Steffen Eisenberg Facility:[facility] Start: 04-20-2025 End: 04-20-[address] Apple Lao MD -[facility] Work Phone: Start: 04-20-2025 End: 04-20-[address] Steffen Eisenberg MD Work Phone: -[facility] Start: 04-19-2025 ambulatory Steffen Eisenberg Facility :[facility] Start: 04-19-2025 Non-patient / Non-visit Kiley Whaley ms, CNM -[facility] Start: 04-19-2025 End: 04-19-2025 Patient encounter procedure Kiley Jain CNM -[facility] Work Phone: Start: 04-19-2025 End: 04-19-[address] Steffen Eisenberg MD Work Phone: -[facility] Start: 04-15-2025 End: 04-15-[address] Steffen Eisenberg MD Work Phone: -Ultrasound [facility] Start: 04-15-2025 End: 04-15-[address] Edel Bullock DO [facility] Work Phone: Start: 04-15-2025 End: 04-15-2025 ambulatory Steffen Eisenberg Facility:[facility] Start: 04-12-2025 End: 04-12-2025 ambulatory NO PRIMARY CARE [facility] Start: 04-08-2025 End: 04-08-2025 ambulatory NO PRIMARY CARE [facility] Start: 04-07-2025 End: 04-07-[address] Steffen Eisenberg MD Work Phone: [facility] Start: 04-07-2025 End: 04-07-[address] Edel Bullock DO [facility] Start: 04-07-2025 End: 04-07-[address] Edel Bullock DO [facility] Work Phone: Start: 04-07-2025 End: 04-07-[address] Steffen Eisenberg MD Work Phone: [facility] Start: 04-07-2025 End: 04-07-2025 ambulatory Steffen Eisenberg Facility:[facility] Start: 03-26-2025 End: 03-26-[address] Edel Bullock DO [facility] Work Phone: Start: 03-26-2025 End: 03-26-[address] Steffen Eisenberg MD Work Phone: [facility] Start: 03-10-2025 End: 03-10-[address] Steffen Eisenberg MD Work Phone: [facility] Work Phone: Start: 03-10-2025 End: 03-10-[address] Edel Bullock DO -[facility] Specimen Work Phone: Start: 03-10-2025 End: 03-10-[address] Edel Bullock DO -[facility] Work Phone: Start: 03-10-2025 End: 03-10-[address] Steffen Eisenberg MD Work Phone: [facility] Work Phone: Start: 03-10-2025 End: 03-10-2025 ambulatory Steffen Eisenberg Facility:[facility] Start: 03-05-2025 End: 03-05-[address] Steffen Eisenberg MD Work Phone: [facility] Work Phone: Start: 03-05-2025 End: 03-05-2025 Patient encounter procedure Kiley Cristobal CNM -Laboratory Work Phone: Start: 03-05-2025 End: 03-05-2025 ambulatory Steffen Eisenberg Facility:[facility] Start: 02-26-2025 End: 02-26-[address] Apple Lao MD -[facility] Work Phone: Start: 02-26-2025 End: 02-26-[address] Steffen Eisenberg MD Work Phone: [facility] Work Phone: Start: 02-26-2025 End: 02-26-2025 ambulatory Steffen Eisenberg Facility:[facility] Start: 02-23-2025 End: 02-23-2025 ambulatory OSMANI D [facility] Start: 01-29-2025 End: 01-29-[address] Edel Bullock DO -[facility] Work Phone: Start: 01-29-2025 End: 01-29-2025 ambulatory Steffen Taunton Facility:[facility] Start: 01-28-2025 End: 01-28-2025 ambulatory OSMANI LLANES [facility] Start: 01-01-2025 End: 01-01-[address] Apple Lao MD -[facility] Work Phone: Start: 01-01-2025 End: 01-01-2025 ambulatory Steffen Taunton Facility:[facility] Start: 12-28-2024 End: 12-28-2024 ambulatory [facility] Start: 12-03-2024 End: 12-03-[address] Edel Bullock DO -[facility] Work Phone: Start: 12-03-2024 End: 12-03-2024 ambulatory Steffen Taunton Facility:[facility] Start: 11-10-2024 End: 11-10-2024 Emergency department patient visit Dr. Ld Fermin MD -Emergency Department Work Phone: Start: 11-05-2024 Encounter for genera l adult medical examination without abnormal findings Steffen Faina [facility] Start: 11-05-2024 End: 11-05-[address] Edel Bullock DO -[facility] Work Phone: Start: 11-05-2024 End: 11-05-2024 ambulatory Steffen Faina Facility:[facility] Start: 11-03-2024 End: 11-03-2024 ambulatory Facility:[facility] Start: 11-03-2024 End: 11-03-2024 Telemedicine consultation with patient Demarcus Kristofer WRIGHT Work Phone: Telemedicine Comment on above: Viral URI with cough (Primary Dx) Start: 11-03-2024 End: 11-04-2024 ambulatory Steffen Faina Facility:[facility] Start: 10-23-2024 End: 10-23-2024 ambulatory Steffen Faina Facility:[facility] Start: 10-15-2024 End: 10-15-2024 ambulatory Tseffen Faina Facility:[facility] Start: 10-09-2024 End: 10-09-2024 ambulatory Steffen Taunton Facility:[facility] Start: 10-09-2024 End: 10-09-2024 ambulatory Steffen Taunton Facility:[facility] Start: 10-02-2024 ambulatory Aida Shields Facility :[facility] Start: 10-02-2024 End: 10-02-2024 Subsequent hospital visit by physician Tucker Jimenez 2 [facility] Comment on above: Encounter for pregna ncy test, result positive ([facility]) Start: 10-02-2024 End: 10-02-2024 ambulatory [facility] Start: 09-25-2024 End: 09-25-2024 Subsequent hospital visit by physician Tucker Jimenez 2 [facility] Comment on above: Encounter for pregna ncy test, result positive ([facility]) Start: 09-25-2024 End: 09-25-2024 ambulatory [facility] Start: 09-15-2024 End: 09-15-2024 ambulatory [facility] Start: 09-11-2024 End: 09-11-2024 ambulatory [facility] Start: 09-09-2024 End: 09-09-2024 ambulatory [facility] Start: 09-04-2024 End: 09-04-2024 ambulatory STEFFEN [facility] Start: 08-25-2024 End: 08-25-2024 ambulatory [facility] Start: 08-21-2024 End: 08-21-2024 Subsequent hospital visit by physician Tucker Jimenez 1 [facility] Comment on above: Encounter for assist ed reproductive fertility procedure cycle Start: 08-21-2024 End: 08-21-2024 ambulatory [facility] Start: 08-14-2024 End: 08-14-2024 Subsequent hospital visit by physician Tucker Ultrasound 2 [facility] Comment on above: Encounter for assist ed reproductive fertility procedure cycle Start: 08-14-2024 End: 08-14-2024 ambulatory [facility] Start: 08-04-2024 End: 08-04-2024 ambulatory Steffen Taunton Facility:[facility] Start: 07-29-2024 End: 07-29-2024 Jenifer Del Valle MD Work Phone: [facility] Start: 07-20-2024 End: 07-20-2024 ambulatory Steffen Taunton Facility:[facility] Start: 06-24-2024 End: 06-24-2024 Subsequent hospital visit by physician Tucker Jimenez 2 [facility] Comment on above: Encounter for assist ed reproductive fertility procedure cycle Start: 06-24-2024 End: 06-24-2024 ambulatory [facility] Start: 06-22-2024 End: 06-22-2024 Subsequent hospital visit by physician Tucker Ultrasound 2 [facility] Comment on above: Encounter for assist ed reproductive fertility procedure cycle Start: 06-22-2024 End: 06-22-2024 ambulatory [facility] Start: 06-19-2024 End: 06-19-2024 Subsequent hospital visit by physician Tucker Ultrasound 2 [facility] Comment on above: Encounter for assist ed reproductive fertility procedure cycle Start: 06-19-2024 End: 06-19-2024 ambulatory [facility] Start: 06-15-2024 End: 06-15-2024 Subsequent hospital visit by physician Tucker Ultrasound 2 [facility] Comment on above: Encounter for assist ed reproductive fertility procedure cycle Start: 06-15-2024 End: 06-15-2024 ambulatory [facility] Start: 05-27-2024 End: 05-27-2024 ambulatory [facility] Facility:[facility] Start: 01-12-2024 End: 01-12-2024 ambulatory Facility:[facility] Start: 01-12-2024 End: 01-12-2024 Patient encounter procedure Gina Sahu ABDOUL Work Phone: [facility] Comment on above: URI, acute (Primary Dx); Acute otitis media, right; Acute cough Start: 12-09-2023 Non-patient / Non-visit MARTA STEPHEN [facility] Start: 12-09-2023 End: 12-09-[address] [facility] Work Phone: Start: 12-09-2023 End: 12-09-2023 [facility] Work Phone: Start: 11-04-2023 End: 11-04-2023 Patient encounter procedure MARTA DEL VALLE [facility] Work Phone: Start: 05-01-2023 Patient encounter status Marta Del Valle MD Work Phone: [facility] Start: 05-01-2023 ambulatory MARTA DEL VALLE Facili ty:[facility] Start: 04-03-2023 ambulatory MARTA DEL VALLE Facili ty:[facility] Start: 01-09-2023 ambulatory MARTA DE LVALLE Facili ty:[facility] Start: 01-09-2023 End: 01-09-2023 Subsequent hospital visit by physician Lawrence Young MD Work Phone: [facility] Comment on above: Arrived Start: 12-19-2022 ambulatory SELF SELF Facility:[facility] Start: 09-27-2022 ambulatory SELF SELF Facility:[facility] Start: 09-27-2022 Encounter for genera l adult medical examination without abnormal findings MARTA DEL VALLE Facility:[facility] Start: 09-27-2022 End: 09-27-2022 Patient encounter status Marta Del Valle MD Work Phone: [facility] Start: 09-27-2022 End: 09-27-2022 Periodic preventive med est patient 18-39 yrs Marta Del Valle MD Work Phone: [facility] Comment on above: Well adult exam (Cristy hector Dx); Prolonged ; Need for influenza vaccination; MELINA (generalized anxiety disorder); Gastroesophageal reflux disease without esophagitis; Recurrent major depressive disorder, in full remission Start: 09-05-2022 ambulatory SELF SELF Facility:[facility] Start: 09-05-2022 Encounter for gynecological examination (general) (routine) without abnormal findings FAITH STARKEY Facility:[facility] Start: 09-05-2022 End: 09-05-2022 Patient encounter procedure Faith Starkey MD Work Phone: [facility] Start: 09-05-2022 End: 09-05-2022 Periodic preventive med est patient 18-39 yrs Faith Starkey MD Work Phone: [facility] Comment on above: Well woman exam with routine gynecological exam (Primary Dx) Start: 08-10-2022 ambulatory MARTA DEL VALLE Facili ty:[facility] Start: 10-03-2021 End: 10-07-2021 [facility] Start: 09-27-2021 Patient encounter status Radha Starkey MD Work Phone: [facility] Start: 09-15-2021 End: 09-16-2021 ambulatory Julissa Henry [facility] Start: 05-17-2021 End: 05-17-2021 Subsequent care visit Faith Starkey MD Work Phone: [facility] Comment on above: Supervision of mirna nair first , antepartum (Primary Dx) Start: 08-23-2020 End: 08-23-2020 Patient encounter procedure WILL PRABHAKAR [facility] Start: 08-23-2020 End: 08-23-2020 Office outpatient new 30 minutes Will Prabhakar Work Phone: [facility] Comment on above: Acne vulgaris (Prima ry Dx); Dermal nevus of abdominal wall Start: 07-27-2020 End: 07-27-2020 Patient encounter procedure MARTA DEL VALLE [facility] Start: 07-27-2020 End: 07-27-2020 Office outpatient new 30 minutes Marli Jay Work Phone: [facility] Comment on above: Close Exposure to Co vid-19 Virus (Primary Dx); Generalized body aches; Diarrhea, unspecified type Start: 08-19-2019 End: 08-19-2019 Office outpatient visit 15 minutes Janes Gutiérrez Work Phone: [facility] Comment on above: Leukocytosis, unspec ified type (Primary Dx) Start: 07-29-2019 End: 07-29-2019 Emergency department patient visit Robert Danyel Peterson Work Phone: [facility] Comment on above: Epigastric pain (Cristy hector Dx) Start: 05-09-2019 End: 05-09-2019 Refill Marta Del Valle Work Phone: [facility] General Internal Medicine [facility] Start: 03-19-2019 Follow-up encounter Marta queen Work Phone: [facility] General Internal Medicine [facility] Comment on above: RE: Follow up from E R Visit Start: 03-19-2019 End: 03-19-2019 Patient encounter procedure Marta Del Valle Work Phone: [facility] Start: 03-18-2019 End: 03-19-2019 Emergency department patient visit Laurent Duque Work Phone: [facility] Emergency Department Comment on above: Abdominal pain, unsp ecified abdominal location (Primary Dx); Chest pain, unspecified type; Leukocytosis, unspecified type Start: 03-18-2019 End: 03-18-2019 Patient encounter procedure Marta Del Valle Work Phone: [facility] Start: 02-18-2019 End: 01-22-2020 Office outpatient visit 15 minutes Janes Gtuiérrez Work Phone: [facility] Comment on above: Leukocytosis, unspec ified type (Primary Dx) Start: 08-20-2018 End: 08-20-2018 Office outpatient visit 15 minutes Colleenkin Marla Work Phone: [facility] Comment on above: Leukocytosis, unspec ified type (Primary Dx) Start: 12-09-2013 End: 12-27-2020 Patient encounter status Faith Starkey MD Work Phone: [facility] Start: 12-03-2013 End: 03-03-2014 ambulatory [facility] Procedures Date Procedure Procedure Detail Performing Clinician Start: 05-13-2025 Fibrinogen assay, quantitative Dr. Steffen Eisenberg MD Work Phone: Start: 05-12-2025 Hemoglobin F measure ment using Klemariela-Aleksandar method Dr. Steffen Eisenberg MD Work Phone: Comment on above: [facility] y Reference: Negative POSITIVE AB* Feto- maternal hemorrhage ( RBCs): 10 mL. TESTING PERFORMED AT [facility]. ORIGINAL REPORT ON FILE IN LAB CONTAINS [...] Work Phone: Comment on above: Performed at: [place] [id number] Director: Huan Kuhn PhD, Phone: [phone] Start: 03-10-2025 Gram stain microscopy D tapan [...] 2) Zoste r Vaccines (1 of 2) [facility] Start: 05-03-2031 DTaP/Tdap/Td Vaccine s (3 - Td or Tdap) DTaP/Tdap/Td Vaccines (3 - Td or Tdap) [facility] Start: 05-03-2031 Tetanus vaccination TETANUS [facility] Start: 05-03-2031 Urine microalbumin profile DTaP,Tdap,Td Vaccine (3 - Td or Tdap) [facility] Start: 08-27-2027 Tetanus vaccination [facility] Start: 09-05-2025 Screening for malign ant neoplasm of cervix [facility] Start: 05-15-2025 [facility] Start: 05-13-2025 Application of abdom inal corset [facility] Start: 05-13-2025 Administration of bl ood product [facility] Start: 05-13-2025 Consultation [facility] Start: 05-12-2025 End: 05-13-2025 [facility] Start: 05-12-2025 Administration of bl ood product [facility] Start: 05-12-2025 Administration of medication [facility] Start: 05-12-2025 Ambulation therapy management [facility] Start: 05-12-2025 Application of device [facility] Start: 05-12-2025 Application of intermittent pneumatic compression device [facility] Start: 05-12-2025 Assessment of risk o f venous thromboembolism [facility] Start: 05-12-2025 Catheterization of vein [facility] Start: 05-12-2025 Deep breathing and coughing exercises [facility] Start: 05-12-2025 Exercises [facility] Start: 05-12-2025 Measuring intake and output [facility] Start: 05-12-2025 Notification of physician [facility] Start: 05-12-2025 Procedure discontinued [facility] Start: 05-12-2025 Provision of activit y privileges [facility] Start: 05-12-2025 Skin care [facility] Start: 05-12-2025 Vital signs measurements [facility] Start: 05-12-2025 Wound care [facility] Start: 05-12-2025 Application of abdom inal corset [facility] Start: 05-12-2025 section Repeat C-Sect ion (Not Applicable) [facility] Start: 05-12-2025 Admission procedure [facility] Start: 04-19-2025 Nonstress test [facility] Start: 04-19-2025 Obstetric monitoring [facility] Start: 04-19-2025 [facility] Start: 04-19-2025 Vital signs measurements [facility] Start: 04-19-2025 Ultrasonography for biophysical profile without non-stress testing OB Biophysical Prof W/O NST [facility] Start: 04-07-2025 Comprehensive metabo lic 2000 panel - Serum or Plasma [facility] Start: 04-07-2025 Procedure [facility] Start: 03-10-2025 Source specific culture Genital Cult ure [facility] Start: 03-10-2025 Source specific culture [facility] Start: 02-26-2025 CBC W Auto Different ial panel - Blood [facility] Start: 02-26-2025 Measurement of gluco se 2 hours after glucose challenge for glucose tolerance test [facility] Start: 02-26-2025 Serologic test for syphilis [facility] Start: 02-26-2025 [facility] Start: 11-10-2024 End: 11-10-2024 [facility] Start: 10-02-2024 End: 10-02-2024 Patient encounter procedure 10/02/2024 9:15 AM EST Appointment [address] [phone] [facility] Start: 08-25-2024 End: 08-25-2024 Patient encounter procedure 08/25/2024 8:30 AM EST Appointment [address] [address] [facility] Start: 08-21-2024 End: 08-21-2024 Patient encounter procedure 08/21/2024 7:45 AM EST Appointment [address] [phone] [facility] Start: 06-24-2024 End: 06-24-2024 Patient encounter procedure 06/24/2024 7:30 AM EDT Appointment [address] [phone] [facility] Start: 06-22-2024 End: 06-22-2024 Patient encounter procedure 06/22/2024 7:45 AM EDT Appointment [address] [phone] [facility] Start: 06-19-2024 End: 06-19-2024 Patient encounter procedure 06/19/2024 7:45 AM EDT Appointment [address] [place] [address] [facility] Start: 05-31-2024 COVID-19 Vaccine () COVID-19 Vaccine () [facility] Start: 05-31-2024 COVID-19 VACCINE () COVID-19 VACCINE () [facility] Start: 05-31-2024 COVID-19 Vaccine () COVID-19 Vaccine () [facility] Start: 05-31-2024 Influenza vaccination [facility] Start: 05-01-2024 PREVENTATIVE HEALTH VISIT PREV ENTATIVE HEALTH VISIT [facility] Start: 09-30-2023 Behavioral Health Screening Behavioral Health Screening [facility] Start: 09-27-2023 End: 09-27-2023 Patient encounter procedure 09/27/2023 Office Visit RADIAL DRILL OPERATOR FOR P[employer]IC Faith Starkey MD [address] [place] [phone] [facility] [place] Start: 09-27-2023 PREVENTATIVE HEALTH VISIT PREV ENTATIVE HEALTH VISIT [facility] Start: 09-05-2023 PREVENTATIVE HEALTH VISIT PREV ENTATIVE HEALTH VISIT [facility] Start: 05-31-2023 Covid-19 Vaccine () Covid-19 Vaccine () [facility] Start: 05-01-2023 End: 05-01-2023 Patient encounter procedure 05/01/2023 Office Visit General Medicine Marta Del Valle MD [address] [place] [address] [facility] Start: 09-27-2022 End: 09-27-2022 Patient encounter procedure 09/27/2022 Office Visit General Marta Thakur MD [address] [place] [address] [facility] Start: 09-02-2022 Microscopic observat ion [Identifier] in Cervix by Cyto stain PAP SMEAR [facility] Start: 09-02-2022 Screening for malign ant neoplasm of cervix PAP SMEAR [facility] Start: 05-31-2022 Influenza vaccination INFLUENZA VACC INE (#1) [facility] Start: 09-28-2021 PREVENTATIVE HEALTH VISIT PREV ENTATIVE HEALTH VISIT [facility] Start: 09-27-2021 End: 09-27-2021 Patient encounter procedure 09/27/2021 Office Visit General Medicine Marta Del Valle MD [address] [place] [phone] [facility] Start: 08-29-2021 End: 08-29-2021 Office Visit 08/29/2021 Office Visit Dermatology SrinivasWill MD [address] [place] [address] [phone] [facility] Start: 06-21-2021 End: 06-21-2021 Follow-up encounter 06/21/2021 Follow Up Visit RADIAL DRILL OPERATOR FOR PLASTIC Faith Starkey MD [address] [place] [phone] Obstetrics, Gynecology and Midwifery [facility] [place] Start: 06-07-2021 End: 06-07-2021 Follow-up encounter 06/07/2021 Follow Up Visit Maternal Medicine [facility] [place] Start: 05-31-2021 Influenza vaccination INFLUENZA VACC INE (#1) [facility] Start: 05-31-2021 End: 05-31-2021 Follow-up encounter 05/31/2021 Follow Up Visit RADIAL DRILL OPERATOR FOR PLASTIC Faith Starkey MD [address] [address] Obstetrics, Gynecology and [facility]wifery [facility] [place] Start: 05-22-2021 End: 05-22-2021 ambulatory 05/22/2021 Rehab Services Visit Sports Medicine and Rehabilitation Faith Starkey MD [address] [phone] Tere Cross, PT [address] [place] [address] [facility] Start: 04-01-2021 COVID-19 VACCINE (3 - Booster for Pfizer series) COVID-19 VACCINE (3 - Booster for Pfizer series) [facility] Start: 03-29-2021 Influenza vaccinatio n given Sequential Influenza Vaccine (#1) [facility] Comment on above: Postponed from 05/31 (Patient Refused) Start: 08-23-2020 End: 08-23-2020 Office Visit 08/23/2020 Office Visit Dermatology SrinivasWill MD [address] [place] [address] [phone] [facility] Start: 2019 Screening for malign ant neoplasm of cervix HPV Testing [facility] Start: 09-02-2019 End: 09-02-2019 Office Visit 09/02/2019 Office Visit RADIAL DRILL OPERATOR FOR PLASTIC Faith Starkey MD [address] [phone] RADIAL DRILL OPERATOR FOR PLASTIC [facility] Start: 08-19-2019 End: 08-19-2019 Office Visit 08/19/2019 Office Visit Oncology Janes Gutiérrez MD [address] [place] [address] [phone] [facility] Start: 05-31-2019 Influenza vaccination INFLUENZA VACC INE (#1) [facility] Start: 05-31-2019 Influenza vaccinatio n given [facility] Start: 05-08-2019 Microscopic observat ion Cyto stain Nom (Cvx) PAP SMEAR [facility] Start: 05-08-2019 Screening for malign ant neoplasm of cervix PAP SMEAR [facility] Start: 02-18-2019 End: 02-18-2019 Ambulatory 02/18/2019 Office Visit Oncology Janes Gutiérrez MD [address] [facility] [address] [place] [address] [phone] [facility] Start: 02-17-2019 End: 08-21-2019 Complete blood count with white cell differential, manual CBC and Differential Routine Leukocytosis, Unspecified Type Expected: 02/17/2019, Expires: 08/21/2019 [facility] Comment on above: Expected: 02/17/2019 , Expires: 08/21/2019 Start: 05-31-2018 Influenza vaccination SEQUENTI AL INFLUENZA VACCINE (#1) [facility] Start: 01-16-2016 Screening for malign ant neoplasm of cervix Pap Testing [facility] Start: 01-15-2014 Screening for malign ant neoplasm of cervix Cervical Cancer Screening [facility] Start: 2010 Screening for malign ant neoplasm of cervix HPV/Cotest [facility] Start: 2008 Hepatitis B vaccination HEP B VACCINE (1 of 3 - 19+ 3-dose series) [facility] Start: 2008 Hepatitis B Vaccine (1 of 3 - 19+ 3-dose series) Hepatitis B Vaccine (1 of 3 - 19+ 3-dose series) [facility] Start: 2008 Hepatitis B Vaccines (1 of 3 - 19+ 3-dose series) Hepatitis B Vaccines (1 of 3 - 19+ 3-dose series) [facility] Start: 2007 Anxiety Screening Anxiety Screening [facility] Start: 2007 [facility] 2007 Hepatitis C antibody , confirmatory test Hepatitis C Screening [facility] Start: 2007 Hepatitis C screening Hepatitis C Sc manish [facility] Start: 2007 HIV screening HIV Screening [facility] Start: 2004 HIV screening HIV Screening [facility] Start: 2002 Varicella vaccination Varicell a Vaccines (1 of 2 - 13+ 2-dose series) [facility] Start: 2001 Adolescent depressio n screening assessment Depression Screening (PHQ9) [facility] Start: 1992 History and physical examination, annual for health maintenance Wellness Visit [facility] Start: 1990 MMR Vaccines (1 of 1 - Standard series) MMR Vaccines (1 of 1 - Standard series) [facility] Start: 1989 HIV screening HIV Screening [facility] Start: 1989 Lipid panel Lipid Panel [facility] Start: 1989 Screening for malign ant neoplasm of cervix PAP SMEAR [facility] Start: 1989 Yearly Adult Physical Yearly Adult P hysical [facility] Alanine aminotransfe rase [Enzymatic activity/volume] in Serum or Plasma [facility] Albumin [Mass/volume ] in Serum or Plasma [facility] Alkaline phosphatase [Enzymatic activity/volume] in Serum or Plasma [facility] Anion gap in Serum o r Plasma [facility] Bilirubin, total measurement [facility] BUN/Creatinine ratio [facility] Calcium [Mass/volume ] in Serum or Plasma [facility] Carbon dioxide, tota l [Moles/volume] in Central venous blood [facility] Creatinine [Mass/vol ume] in Serum or Plasma [facility] Cytology Cervical or vaginal smear or scraping study CYTOLOGY-Z OS MAINFRAME SYSTEMS PROGRAMMER, 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 Cytology Routine Well woman exam with routine gynecological exam 09/05/2022 3:07 PM EST [facility] Erythrocyte mean corpuscular volume determination [facility] Glucose [Mass/volume ] in Serum or Plasma [facility] Hematocrit [Volume Fraction] of Blood [facility] Hemoglobin [Mass/vol ume] in Blood [facility] Leukocytes [#/volume ] in Blood [facility] Mean corpuscular hemoglobin concentration determination [facility] Mean corpuscular hemoglobin determination [facility] Measurement of renal function [facility] Neutrophil count [facility] Neutrophil percent differential count [facility] Patient Education [facility] Work Phone: Patient referral [facility] Work Phone: Platelets [#/volume] in Blood [facility] Potassium measurement [facility] Red blood cell count [facility] Red cell distributio n width determination [facility] End: 06-19-2024 GERRY US Pelvis Limited Follicles - Follicle Studies Performed [facility] Work Phone: Comment on above: Once for 1 Occurrenc es starting 06/19/2024 until 06/19/2024 End: 06-22-2024 GERRY US Pelvis Limited Follicles - Follicle Studies Performed [facility] Work Phone: Comment on above: Once for 1 Occurrenc es starting 06/22/2024 until 06/22/2024 End: 06-24-2024 GERRY US Pelvis Limited Follicles - Follicle Studies Performed [facility] Work Phone: Comment on above: Once for 1 Occurrenc es starting 06/24/2024 until 06/24/2024 Serum chloride measurement [facility] Sodium measurement [facility] Streptococcus agalac tiae [Presence] in Unspecified specimen by Organism specific culture [facility] Total protein measurement [facility] Urea nitrogen [Mass/volume] in Serum or Plasma [facility] End: 08-14-2024 US Pelvis transvaginal [facility] [...] 1 Occurrenc es starting 06/24/2024 until 06/24/2024 [facility] Immun[place] Immunization Date Immunization Notes Care Provider Audrey rahman 03-10-2025 tetanus toxoid, redu mason diphtheria toxoid, and acellular pertussis vaccine, adsorbed Dr. Steffen Eisenberg MD Work Phone: [facility] 09-27-2022 influenza, injectabl e, quadrivalent, preservative free Marta Del Valle MD Work Phone: [facility] 09-27-2022 influenza quad vacci ne 0.5 ML Suspension Prefilled Syringe Marta Del Valle MD Work Phone: [facility] 09-27-2022 influenza virus vacc ine, unspecified formulation Gina Sauh APRN.CNP Work Phone: [facility] 06-21-2021 influenza, injectabl e, quadrivalent, preservative free Faith Starkey MD Work Phone: [facility] 06-21-2021 influenza virus vacc ine, unspecified formulation Faith Starkey MD Work Phone: [facility] 05-03-2021 tetanus toxoid, redu mason diphtheria toxoid, and acellular pertussis vaccine, adsorbed Faith Starkey MD Work Phone: [facility] 02-04-2021 Covid (Pfizer) Dr. Steffen chao MD Work Phone: [facility] 01-14-2021 Covid (Pfizer) Dr. Steffen chao MD Work Phone: [facility] 09-07-2020 Influenza, injectabl e, Madin Erlinda Canine Kidney, preservative free, quadrivalent Dr. Steffen Eisenberg MD Work Phone: [facility] 07-23-2019 influenza, injectabl e, quadrivalent, preservative free Faith Starkey MD Work Phone: [facility] 07-23-2019 influenza virus vacc ine, unspecified formulation Faith Starkey MD Work Phone: [facility] 07-31-2018 influenza, injectabl e, quadrivalent, contains preservative [facility] 07-31-2018 influenza, injectabl e, quadrivalent, preservative free Dr. Steffen Eisenberg MD Work Phone: [facility] 07-31-2018 influenza virus vacc ine, unspecified formulation [facility] 08-27-2017 tetanus toxoid, redu mason diphtheria toxoid, and acellular pertussis vaccine, adsorbed [facility] 11-15-2016 Human Papillomavirus 9-valent vaccine [facility] 06-18-2016 Human Papillomavirus 9-valent vaccine [facility] 05-08-2016 Human Papillomavirus 9-valent vaccine [facility] 09-20-2015 influenza virus vacc ine, whole virus [facility] 09-20-2015 influenza, injectabl e, quadrivalent, preservative free Dr. Steffen Eisenberg MD Work Phone: [facility] 08-18-2014 influenza virus vacc ine, whole virus Marta [facility] 08-18-2014 influenza, injectabl e, quadrivalent, preservative free Dr. Steffen Eisenberg MD Work Phone: [facility] 08-30-2013 influenza virus vacc ine, unspecified formulation [facility] Payers Date Payer Category Payer [employer]inny [employer] [facility] [id number] 2024 Unknown [id number] 2024 Self-pay 2023 Managed Care (Private) [facility] [id number]. [id number] 2022 Unknown [id number] 2022 Unknown [id number] 2021 Private Health Insurance 1.2 .840.979476.1.13.172.2. 7.3.663745.315 2021 Unknown [id number] 2021 Unknown [id number] 2017 Unknown [id number] 1.2.840.719802.1.13.172.2. 7.3.390621.315 2017 Unknown [id number] 2017 Unknown [id number] 1.2.840.951743.1.13.385.2. 7.3.050646.315 2014 Unknown [id number] 2003 Unknown 1.2.840.144382. 1.13.159.2. 7.3.085312.315 2003 Unknown [id number] 1989 Unknown [id number] 2.16.840.1.678774.3.579.2. 903 1989 Unknown [id number] 2.16.840.1.292357.3.579.2. 903 1989 Unknown [id number] 2.16.840.1.484132.3.579.2. 902 1989 Unknown [id number] 2.16.840.1.039881.3.579.2. 900 1989 Unknown [id number] 2.16.840.1.557255.3.579.2. 900 1989 Unknown [id number] 2.16.840.1.486337.3.579.2. 594 1989 Unknown [id number] 2.16.840.1.475131.3.579.2. 594 1989 Unknown [id number] 2.16840.1.259310.3.579.2. 594 1989 Unknown [id number] 2.16.840.1.197189.3.579.2. 594 1989 Unknown [id number] 2.16.840.1.825393.3.579.2. 594 1989 Unknown [id number] 2.16.840.1.054270.3.579.2. 594 1989 Unknown [id number] 2.16.840.1.575198.3.579.2. 594 1989 Unknown [id number] 2.16.840.1.444065.3.579.2. 594 1989 Unknown [id number] 2.16.840.1.400888.3.579.2. 594 1989 Unknown [id number] 2.16.840.1.078022.3.579.2. 594 1989 Unknown [id number] 2.16.840.1.526585.3.579.2. 594 1989 Unknown [id number] 2.16.840.1.655484.3.579.2. 1243 1989 Unknown [id number] 2.16.840.1.304400.3.579.2. 1242 1989 Unknown [id number] 2.16.840.1.154067.3.579.2. 1242 1989 Unknown [id number] 2.16.840.1.167054.3.579.2. 1242 1989 Unknown [id number] 2.16.840.1.911557.3.579.2. 1242 1989 Unknown [id number] 2.16.840.1.370856.3.579.2. 1242 1989 Unknown [id number] 2.16.840.1.207206.3.579.2. 1242 1989 Unknown [id number] 2.16.840.1.825283.3.579.2. 1242 1989 Unknown [id number] 2.16.840.1.780916.3.579.2. 1244 1989 Unknown [id number] 2.16.840.1.524166.3.579.2. 1244 1989 Unknown [id number] 2.16.840.1.941168.3.579.2. 1244 1989 Unknown [id number] 2.16.840.1.030336.3.579.2. 1244 1989 Unknown [id number] 2.16.840.1.244351.3.579.2. 1245 1989 Unknown [id number] 2.16.840.1.577114.3.579.2. 1244 1989 Unknown [id number] 2.16.840.1.938510.3.579.2. 1244 1989 Unknown [id number] 2.16.840.1.361784.3.579.2. 1244 1989 Unknown [id number] 2.16.840.1.071250.3.579.2. 1244 1989 Unknown [id number] 2.16.840.1.201584.3.579.2. 1244 1989 Unknown [id number] 2.16.840.1.568295.3.579.2. 1244 1989 Unknown [id number] 2.16.840.1.031863.3.579.2. 1244 1989 Unknown [id number] 2.16.840.1.245569.3.579.2. 1244 1989 Unknown [id number] 2.16.840.1.599067.3.579.2. 1989 Unknown [id number] 2.16.840.1.205871.3.579.2. 1989 Unknown [id number] 2.16.840.1.213919.3.579.2. 1989 Unknown [id number] 2.16.840.1.146705.3.579.2. 1989 Unknown [id number] 2.16.840.1.216708.3.579.2. 1989 Unknown [id number] 2.16.840.1.846464.3.579.2. 1989 Unknown [id number] 2.16.840.1.897018.3.579.2 1989 Unknown [id number] 2.16840.1.628590.3.579.2. 479 1989 Unknown [id number] 2.16840.1.675997.3.579.2. 479 1989 Unknown [id number] 2.16840.1.148933.3.579.2. 479 Unknown [id number] 2.840.1.926176.3.579.2. 462 Unknown [id number] 2.840.1.733410.3.579.2. 462 Unknown [id number] 2.840.1.844926.3.579.2. 462 Unknown [id number] 2.840.1.237842.3.579.2. 462 Unknown [id number] 2.840.1.296259.3.579.2. 462 Unknown [id number] 2.840.1.576170.3.579.2. 462 Unknown [id number] 2.840.1.262721.3.579.2. 462 Unknown [id number] 2.840.1.096857.3.579.2. 462 Unknown [id number] 2.840.1.273494.3.579.2. 462 Unknown [id number] 2.840.1.124670.3.579.2. 462 Unknown [id number] 2.16840.1.113677.3.579.2. 462 Unknown [id number] 2.840.1.061292.3.579.2. 462 Unknown [id number] 2.16840.1.476395.3.579.2. 462 Unknown [id number] 2.16840.1.357610.3.579.2. 462 Unknown [id number] 2.840.1.871484.3.579.2. 462 Unknown [id number] 2.16.840.1.051859.3.579.2. 462 Unknown [id number] 2.16.840.1.720147.3.579.2. 462 Unknown [id number] 2.16.840.1.105426.3.579.2. 462 Unknown [id number] 2.16.840.1.619831.3.579.2. 462 Unknown [id number] 2.16.840.1.780852.3.579.2. 462 Unknown [id number] 2.16.840.1.936264.3.579.2. 462 Unknown [id number] 2.16840.1.800731.3.579.2. 462 Unknown [id number] 2.16840.1.601486.3.579.2. 462 Unknown [id number] 2.16840.1.494742.3.579.2. 462 Unknown [id number] 2.16840.1.491541.3.579.2. 462 Unknown [id number] 2.16840.1.783258.3.579.2. 462 Unknown [id number] 2.16840.1.930752.3.579.2. 462 Unknown [id number] 2.16840.1.493621.3.579.2. 462 Unknown [id number] 2.16840.1.951435.3.579.2. 462 Unknown [id number] 2.16840.1.990364.3.579.2. 462 Unknown [id number] 2.16840.1.794006.3.579.2. 462 Unknown [id number] 2.16840.1.530332.3.579.2. 462 Unknown [id number] 2.16.840.1.371700.3.579.2. 462 Unknown [id number] 2.16840.1.945910.3.579.2. 462 Unknown [id number] 2.16.840.1.884220.3.579.2. 462 Unknown [id number] 2.16.840.1.397153.3.579.2. 462 Social History Date Type Detail Facility Start: 02-20-2012 End: 08-20-[address] [facility] Never smoker [facility] Start: 1990 Sex Assigned At Not on file [facility] Start: 07-31-2018 End: 05-12-[address] [facility] Former smoker [facility] Start: 10-01-2009 End: 10-01-2010 History of tobacco use Current smoker [facility] Start: 10-01-2009 End: 10-01-2010 History of tobacco use Cigarette Smoker [facility] Start: 07-31-2018 End: 01-12-2024 Cigarettes smoked current (pack per day) - Reported [facility] Start: 12-09-2013 Alcohol Comment 1-2 times per week, up to 2 glasses of wine at a time [facility] Start: 07-29-2019 End: 01-12-2024 Alcohol intake Current drinker of alcohol (finding) [facility] Start: 02-20-2012 End: 08-23-2020 Tobacco use and exposure Never used [facility] Start: 06-05-2024 End: 10-02-2024 Exposure to SARS-CoV-2 (event) Not sure [facility] Exposure to SARS-CoV -2 (event) Yes [facility] Start: 07-31-2018 End: 01-12-2024 Alcohol intake Yes [facility] Start: 05-03-2021 End: 05-01-2023 Alcohol intake Ex-drinker (finding) [facility] Start: 12-09-2013 Alcohol Comment 1-2 times per week, up to 2 glasses of wine at a time [facility] Start: 10-21-2020 [facility] Start: 08-26-2022 End: 09-27-2022 Exposure to SARS-CoV-2 (event) Unable to assess [facility] Start: 11-04-2023 Tobacco smoking stat us NHIS Unknown if ever smoked [facility] Start: 1990 Sex Assigned At Female [facility] Start: 02-20-2012 Alcohol Comment occassional [facility] [place] Depression Score 10 [facility] Gender identity Identifies as fe male gender (finding) [facility] Goals Date Patient Goal Desired Activity /State [...] Functional status Activity Abili ty Bedrest;Post Op [facility] Work Phone: Mental Status Date Assessment Result Facility 11-10-2024 Cognitive function Voice/Name [facility] Work Phone: Clinical Notes 05-17-2021 to 05-15-2025 Note Date & Type Note Facility 05-15-2025 Progress note [facility] 05-15-2025 Discharge summary Note Date/Time May 15, 2025 12:14pm [facility] Medical Records Department [address] [place] [address] Discharge Summary 05/15/25 0842 MR#: [id number] Acct: [id number] Name: BARBY CABALLERO Rep #:[id number] : 1990 34 From: Mariana Jonas CNM PCP: Dr. Steffen Eisenberg MD Status:ADM IN Location: BB235-8 Providers Date of Admission: 05/12/25 Primary Care [...] Up With: Edel Bullock DO When: Call [phone] to make an appointment for an incision [...] NU Jonas; Dr. Steffen Eisenberg MD~ Signed [facility] Work Phone: 1(841) 111-248808-16-2025 Discharge summary [facility] Medical Records Department [address] [place] [address] Discharge Summary 05/15/25 0842 MR#: [id number] Acct: [id number] Name: BARBY CABALLERO Rep #:[id number] : 1990 34 From: Mariana Jonas CNM PCP: Dr. Steffen Eisenberg MD Status:ADM IN Location: NW261-3 Providers Date of Admission: 05/12/25 Primary Care [...] Up With: Edel Bullock DO When: Call [phone] to make an appointment for an incision [...] NU Jonas; Dr. Steffen Eisenberg MD~ Signed [facility]08-16-2025 Progress note Author Mariana Jonas [facility] Note Date/Time May 15, 2025 8: 42am [facility] Medical Records Department [address] [place] [address] Progress Note - OBGYN 05/15/25 0840 MR#: [id number] Acct: [id number] Name: BARBY CABALLERO Rep #:[id number] : 1990 34 From: Mariana Jonas CNM PCP: Dr. Steffen Eisenberg MD Status:ADM IN Location: DQ880-6 Subjective Subjective Patient doing well without complaints. [...] Cosigner Signature (if applicable): CC: ~ Signed [facility] Work Phone: 1(267) 678-502008-16-2025 [facility]08-16-2025 Progress note [facility] Medical Records Department [address] [place] [address] Progress Note - OBGYN 05/15/25 0840 MR#: [id number] Acct: [id number] Name: BARBY CABALLERO Rep #:[id number] : 1990 34 From: Mariana Jonas CNM PCP: Dr. Steffen Eisenberg MD Status:ADM IN Location: GL115-1 Subjective Subjective Patient doing well without complaints. [...] Cosigner Signature (if applicable): CC: ~ Signed [facility]08-15-2025 Progress note Author Mariana Jnoas [facility] Note Date/Time May 14, 2025 8: 30am [facility] Medical Records Department [address] [place] [address] Progress Note - OBGYN 05/14/2528 MR#: [id number] Acct: [id number] Name: BARBY CABALLERO Rep #:[id number] : 1990 34 From: Mariana Jonas CNM PCP: Dr. Steffen Eisenberg MD Status:ADM IN Location: VL343-9 Subjective Subjective Patient doing well without complaints. [...] 74.0 H, Lymph % (Auto) 17.1 L, Mcintosh % (Auto) 6.6, Eos % (Auto) 0.9, [...] Cosigner Signature (if applicable): CC: ~ Signed [facility] Work Phone: 1(199) 799-652508-15-2025 Progress note [facility] Medical Records Department [address] [place] [address] Progress Note - OBGYN 05/14/25 08 MR#: [id number] Acct: [id number] Name: BARBY CABALLERO Rep #:[id number] : 1990 34 From: Mariana Jonas CNM PCP: Dr. Steffen Eisenberg MD Status:ADM IN Location: YJ681-5 Subjective Subjective Patient doing well without complaints. [...] 74.0 H, Lymph % (Auto) 17.1 L, Mcintosh % (Auto) 6.6, Eos % (Auto) 0.9, [...] Cosigner Signature (if applicable): CC: ~ Signed [facility]08-14-2025 Progress note Author Apple Lao [facility] Note Date/Time May 15, 2025 2: 25pm [facility] Medical Records Department [address] [place] [address] Progress Note - OBGYN 05/13/251811 MR#: [id number] Acct: [id number] Name: BARBY CABALLERO Rep #:[id number] : 1990 34 From: Apple fuentes MD PCP: Dr. Steffen Eisenberg MD Status:ADM IN Location: [place] [address] Subjective Subjective LATE ENTRY- patient seent at [...] 74.0 H, Lymph % (Auto) 17.1 L, Mcintosh % (Auto) 6.6, Eos % (Auto) 0.9, [...] Cosigner Signature (if applicable): CC: ~ Signed [facility] Work Phone: 1(474) 620-923008-14-2025 Progress note Author Apple Lao [facility] Note Date/Time May 13, 2025 6: 08pm [facility] Medical Records Department [address] [place] [address] Progress Note 05/13/251806 MR#: [id number] Acct: [id number] Name: BARBY CABALLEROE Rep #:[id number] : 1990 34 From: Apple fuentes MD PCP: Dr. Steffen Eisenberg MD Status:ADM IN Location: [place] [address] Progress Note Patient evaluated due to passing [...] Cosigner Signature (if applicable): CC: ~ Signed [facility] Work Phone: 1(743) 373-803808-14-2025 Progress note [facility] Medical Records Department [address] [place] [address] Progress Note 05/13/251806 MR#: [id number] Acct: [id number] Name: DONGKiranBARBY Rep #:[id number] : 1990 34 From: Apple fuentes MD PCP: Dr. Steffen Eisenberg MD Status:ADM IN [facility] Note Patient evaluated due to passing [...] Cosigner Signature (if applicable): CC: ~ Signed [facility]08-13-2025 Procedure note [facility] Medical Records Department [address] [place] [address] Operative Report 05/12/25 0920 MR#: [id number] Acct: [id number] Name: BARBY CABALLERO Rep #:[id number] : 1990 34 From: Edel Bullock DO PCP: Dr. Steffen Eisenberg MD Status:ADM IN [facility] Assessment & Plan (1) GBS (group B [...] (5 minute): 9 Delayed Cord Clamping: Yes Life Skills Specialist hostess host: Yes Student Services Representative: Mark Jauregui Tasks completed by compounding assistant: Closing and Retracting Additional human services assistant?: No Complications Complications: No Multi Select Codes Urinary/Genital Urinary/Genital CPT Codes: 46754 Delivery [facility] 05/12/25 0926 Cosigner Signature (if applicable): CC: Dr. Steffen Eisenberg MD; Dr. Edel Bullock DO~ Signed [facility]08-13-2025 Discharge summary Author Edel Diehl [facility] Note Date/Time May 12, 2025 7: 21am [facility] Medical Records Department [address] [place] [address] Instructions for Home/Discharge Instructions 05/12/25 0719 MR#: [id number] Acct: [id number] Name: BARBY CABALLERO Rep #:[id number] : [...] Up With: Edel Bullock DO When: Call [phone] to make an appointment for an incision [...] CC: Dr. 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 Edel Bullock DO~ Signed [facility] Work Phone: 1([phone]) 342-884508-13-2025 Discharge summary [facility] Medical Records Department [address] [place] [address] Instructions for Home/Discharge Instructions 05/12/25 0719 MR#: [id number] Acct: [id number] Name: TORRI CABALLEROA EDWINA Rep #:[id number] [...] Up With: Edel Bullock DO When: Call [phone] to make an appointment for an incision [...] CC: Dr. 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 Date Name GA/Weeks Outcome Route Bth Weight Gen Labor Lgth Anesthesia Del Locatn Provider FOB 07/18/21 Larry 40 live - full term 7lbs 7oz Male [facility] [place] Delivery Date: 07/18/21 Last Updated [...] transfer. declines NIPT had genetic testing at [facility] 11/05/24 -?-?-?-?-?-?-?-?-?-?-?-?- 12w 1d 260 lb [...] growth scans at 34 and 38 weeks. [facility] signed today JV- no lof, vaginal bleeding , or dec fm. has growth scans at 34 and 38 weeks. [facility] signed today. pelvic exam performed for tightening [...] Eisenberg MD; Dr. Edel Bullock, ~ Signed [facility]07-30-2025 Progress [facility] [address], [address] [place] [address] OFFICE VISIT Date of Service: 04/28/25 MR#: [id number] Acct: [id number] Name: BARBY CABALLERO Rep #: [id number] : 1990 Provider: Dr. Kellen Bullock DO Age/Sex: 34/F Location: 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 declines NIPT had genetic testing at [facility] 11/05/24 -?-?-?-?-?-?-?-?-?-?-?-?- 12w 1d 260 lb [...] growth scans at 34 and 38 weeks. [facility] signed today JV- no lof, vaginal bleeding , or dec fm. has growth scans at 34 and 38 weeks. [facility] signed today. 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 Steffen Eisenberg MD Status: REG CLI Study:OB Biophysical Prof W/O NST Date of Exa m: 04/22/25 Exam# [id number] Ordering Dr: Edel Rowley DO PROCEDURE: OB [...] NST IMPRESSION: Normal biophysical profile. Reading Location: [id number] CC: Dr. Steffen Eisenberg MD; Dr. Edel Bullock DO ~ Chairman And Ceo: Signed [facility]07-22-2025 [facility] [address], [address] [place] [address] OFFICE VISIT Date of Service: 04/20/25 MR#: [id number] Acct: [id number] Name: BARBY CABALLERO Rep #: [id number] : 1990 Provider: Dr. 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 declines NIPT had genetic testing at [facility] 11/05/24 -?-?-?-?-?-?-?-?-?-?-?-?- 12w 1d 260 lb [...] growth scans at 34 and 38 weeks. [facility] signed today JV- no lof, vaginal bleeding , or dec fm. has growth scans at 34 and 38 weeks. [facility] signed today. pelvic exam performed for tightening [...] Cosigner Signature: Date (if applicable) CC: ~ [facility]07-22-2025 Progress note Author Apple Lao [facility] Note Date/Time April 20, 2025 2:29 pm [facility] [address], [address] [place] [address] OFFICE VISIT Date of Service: 04/20/25 MR#: [id number] Acct: [id number] Name: FEDERICOBARBYVICKI DEWITTE Rep #: [id number] : 1990 Provider: Dr. 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 Date Name GA/Weeks Outcome Route Bth Weight Infant Gen Labor Lgth Anesthesia Del Locatn Provider FOB 07/18/21 Larry 40 live - full term 7lbs 7oz Male [facility] [place] Delivery Date: 07/18/21 Last Updated [...] transfer. declines NIPT had genetic testing at [facility] 11/05/24 -?-?-?-?-?-?-?-?-?-?-?-?- 12w 1d 260 lb [...] growth scans at 34 and 38 weeks. [facility] signed today JV- no lof, vaginal bleeding , or dec fm. has growth scans at 34 and 38 weeks. [facility] signed today. pelvic exam performed for tightening [...] POC Urinalysis 2 Dip (Clinic) Today 04/20/25 1747 <Electronically signed by Apple brown MD> Date _ Apple Lao MD [facility] Signature: Date (if applicable) CC: ~ [facility] Work Phone: 1(238) 424-889607-17-2025 Radiology Diagnostic study note [facility] Imaging Services [address] [place] [address] OB Biophysical Prof W/O NST MR#: [id number] Acct: [id number] Name: BARBY CABALLERO Rep #: [id number] : 1990 F 34 From: Sloan Padron MD PCP: Dr. Steffen Eisenberg MD Status: REG CLI Study:OB Biophysical Prof W/O NST Date of Exa m: 04/15/25 Exam# [id number] Ordering Dr: Edel Rowley DO PROCEDURE: OB [...] NST IMPRESSION: Normal biophysical profile. Reading Location: [facility] CC: Dr. Steffen Eisenberg MD; Dr. Edel Bullock DO ~ Chairman And Ceo: Signed [facility]07-09-2025 [facility] [address], [address] [place] [address] OFFICE VISIT Date of Service: 04/07/25 MR#: [id number] Acct: [id number] Name: BARBY CABALLERO Rep #: [id number] : 1990 Provider: Dr. 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 Date Name GA/Weeks Outcome Route Bth Weight Gen Labor Lgth Anesthesia Del Locatn Provider FOB 07/18/21 Larry 40 live - full term 7lbs 7oz Male [facility] [place] Delivery Date: 07/18/21 Last Updated [...] transfer. declines NIPT had genetic testing at [facility] 11/05/24 -?-?-?-?-?-?-?-?-?-?--?-?- 12w 1d 260 lb [...] and Symptoms of Preeclampsia, Feeding No , [place] Education and Family Medical Leave or Disability [...] Shanita DO> Date _ Edel Bullock DO [facility] Signature: Date (if applicable) CC: ~ [facility]06-27-2025 [facility] [address], [address] [place] [address] OFFICE VISIT Date of Service: 03/26/25 MR#: [id number] Acct: [id number] Name: DONGKiranBARBYVICKI BLAND Rep #: [id number] : 1990 Provider: Dr. 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 [facility] signed today JV- no lof, vaginal bleeding , or dec fm. has growth scans at 34 and 38 weeks. [facility] signed today. pelvic exam performed for tightening [...] and Symptoms of Preeclampsia, Feeding No , [place] Education and Family Medical Leave or Disability [...] Cosigner Signature: Date (if applicable) CC: ~ [facility] [id number] Progress note Author Edel Diehl [facility] Note Date/Time March 26, 2025 2:36 pm [facility] [address], [address] [place] [address] OFFICE VISIT Date of Service: 03/26/25 MR#: [id number] Acct: [id number] Name: FEDERICOBARBY EDWINA Rep #: [id number] : 1990 Provider: Dr. 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 Date Name GA/Weeks Outcome Route Bth Weight Gen Labor Lgth Anesthesia Del Locatn Provider FOB 07/18/21 Larry 40 live - full term 7lbs 7oz Male [facility] [place] Delivery Date: 07/18/21 Last Updated [...] growth scans at 34 and 38 weeks. [facility] signed today JV- no lof, vaginal bleeding , or dec fm. has growth scans at 34 and 38 weeks. [facility] signed today. pelvic exam performed for tightening [...] Quintana DO> Date _ Edel Bullock DO [facility] Signature: Date (if applicable) CC: ~ [facility] Work Phone: 1(668) 581-529005-30-2025 [facility] [address] [place] [address], [address] [place] [address] OFFICE VISIT Date of Service: 02/26/25 MR#: [id number] Acct: [id number] Name: BARBY CABALLERO Rep #: [id number] : 1990 Provider: Dr. 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 Date Name GA/Weeks Outcome Route Bth Weight Infant Gen Labor Lgth Anesthesia Del Locatn Provider FOB 07/18/21 Larry 40 live - full term 7lbs 7oz Male [facility] [place] Delivery Date: 07/18/21 Last Updated [...] Performing Provider: Apple Lao MD Performing Location: [facility] Administered by: Aziza Olson on 02/26/25 08:56 Dose Route Admin Location Dispensed Lot Number Expiration Date [place] Administrator 1,500 unit IM right gluteal 1 ea [id number] 03/05/27 79367-518-1 0 [employer] [facility] Results POC Urinalysis 2 Dip (Clinic) Office [...] Cosigner Signature: Date (if applicable) CC: ~ [facility]05-02-2025 Evaluation note* Diagnosis Onset Date Resolution [...] 2025 2:10pm Depression with anxiety acute [facility] 2024 2:10pm Family history of genetic disorder [...] 9 :54am Depression with anxiety acute [facility] 2024 9:54am Family history of genetic disorder [...] of high-risk acute May 06, 2025 2:05pm [facility] Work Phone: 1(151) 268-490705-02-2025 Evaluation note* Diagnosis Onset Date Resolution Status [...] 2025 2:11pm Depression with anxiety acute [facility] 2024 2:11pm Family history of genetic disorder [...] 26, 2025 2:10pm Depression with anxiety acute [facility] 2024 2:10pm Family history of genetic [...] Supervision of high-risk acute May 12 5:52am [facility] Work Phone: 1(103) 908-583704-04-2025 Evaluation note* Diagnosis Onset Date Resolution Status [...] 10, 2025 2:11pm Depression with anxiety acute [facility] 2024 2:11pm Family history of genetic [...] 26, 2025 2:10pm Depression with anxiety acute [facility] 2024 2:10pm Family history of genetic [...] high-risk acute April 07, 2025 9 :54am [facility] Work Phone: 1(922) 490-604904-04-2025 Evaluation note* Diagnosis Onset Date Resolution Status Admit Date AMA (advanced maternal age) multigravida 35+ acute January 01, 2025 10:03am Conceived by in vitro fertilization acute January 01, 2025 10:03am Depression with anxiety acute A [facility] 2024 10:03am Family history of genetic disorder [...] 2025 2:11pm Depression with anxiety acute [facility] 2024 2:11pm Family history of genetic disorder [...] 2025 2:10pm Depression with anxiety acute [facility] 2024 2:10pm Family history of genetic disorder [...] of high-risk acute April 20, 2025 1:59pm [facility] Work Phone: 1(448) 805-463504-04-2025 Evaluation note* Diagnosis Onset Date Resolution Status [...] 26, 2025 2:10pm Depression with anxiety acute [facility] 2024 2:10pm Family history of genetic [...] 2025 9 :54am Depression with anxiety acute [facility] 2024 9:54am Family history of [...] of high-risk acute April 28, 2025 2:01pm [facility] Work Phone: 1(823) 236-909403-06-2025 Evaluation note* Diagnosis Onset Date Resolution Status [...] high-risk acute February 26, 2025 8 :34am [facility] Work Phone: 1(197) 239-939203-06-2025 Evaluation note* Diagnosis Onset Date Resolution Status [...] of high-risk acute March 10, 2025 2:11pm [facility] Work Phone: 1(785) 325-239703-06-2025 Evaluation note* Diagnosis Onset Date Resolution Status [...] 2025 2:10pm Depression with anxiety acute [facility] 2024 2:10pm Family history of genetic disorder [...] of high-risk acute March 26, 2025 2:10pm [facility] Work Phone: 1(964) 176-376102-06-2025 Evaluation note* Diagnosis Onset Date Resolution Status [...] high-risk acute February 26, 2025 8 :34am [facility] Work Phone: 1(162) 128-317102-04-2025 NoteHNO ID: [id number] Author: DEMARCUS MINER PA-C Service: ? Author Type: Physician Blender Machine Operator Type: Progress Notes Filed: 11/03/2024 16:55 Note Text: Telemedicine Visit - Distance Health Virtual Visit Note Patient seen on [employer] Video Visit platform. Location of patient: [place] I have communicated my name and active licensure. The patient's identity and physical location were verified at the time of this visit. Either the patient or their legal community engagement representative has been informed of the risks [...] - All questions answered MILAD [facility]02-04-2025 History of Present illness Narrative* Demarcus Miner PA-C - 11/03/2024 4:51 PM EST Telemedicine Visit - Distance Health Virtual Visit Note Patient seen on [employer] Video Visit platform. Location of patient: [place] I have communicated my name and active licensure. The patient's identity and physical location wereverified at the time of this visit. Either the patient or their legal community engagement representative has been informed of the risks [...] Miner PA-C [facility] Note * Telephone Encounter - Marta Del Valle MD - 07/29/2024 5:17 PM EDT Due for yearly follow up - must be seen to get additional re [facility]2024 Miscellaneous Notes* Telephone Encounter - Marta Del Valle MD - 07/29/2024 5:17 PM EDT Due for yearly follow up - must be seen to get additional re documented in [facility]OS[facility]04-14-2024 NoteHNO ID: [id number] Author: GINA SAHU APRN.CONTRACT DESIGN AGENT Service: ? Author Type: Nurse Practitioner Type: [...] Patient agreeable to treatment plan. Gina Sahu APRN.[facility]04-14-2024 History of Present illness Narrative* Gina Sahu APRN.[facility] - 01/12/2024 11:06 AM EDT [...] Patient agreeable to treatment plan. Gina Sahu APRN.CONTRACT DESIGN AGENT documented in this encounterC[facility]03-11-2024 Procedure [facility]04-12-2023 History of Present illness Narrative* Lynne Landaverde - 01/09/2023 9:00 AM EDT Patient offered a medical miniature set constructor for sensitive exam. Pt declined documented in this encounterMer[facility]12-29-2022 History of Present illness Narrative* Maile [...] . Physical Exam Exam conducted with a miniature set constructor present. Constitutional: General: She is not in [...] pumping but will send e consult for naval architect specialist to ensure no additional work up indicated. Normal breast exam, normal TFTs and prolactin documented in this encounterOS[facility]12-07-2022 NoteSatisfactory For Evaluation; Endocervical/Transformation Zone Component Present.[address] HospitalComment on above:Order Comment: Patient'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Performed By: #### THINP #### [facility] (DEFAULT) [address] [id number] History of Present illness Narrative* Faith Starkey [...] in one year. documented in this encounterOSU [facility] Hospital12-07-2022 Miscellaneous Notes* Addendum Note - Chris Whitney MA - 09/05/2022 1:30 PM ESTAddended by: CHRIS WHITNEY on: 09/05/2022 02:34 PM Modules accepted: Orders * Addendum Note - Faith Starkey MD - 09/05/2022 1:30 PM ESTAddended by: FAITH STARKEY on: 09/05/2022 03:03 PM Modules accepted: Orders documented in this encounterMer[facility]12-07-2022 Note* Addendum Note - Chris Whitney MA - 09/05/2022 1:30 PM ESTAddended by: CHRIS WHITNEY on: 09/05/2022 02:34 PM Modules accepted: Orders [facility]12-07-2022 Note* Addendum Note - Faith Starkey MD - 09/05/2022 1:30 PM ESTAddended by: FAITH STARKEY on: 09/05/2022 03:03 PM Modules accepted: Orders [facility]08-18-2021 History of Present illness Narrative* Faith [...] Rh neg Posterior placenta Discussed (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 Objective: Assessment: 31w5d Plan: 1. Has US in 3 weeks 2. RTC 2-4 weeks documented in this encounterOSU Community [facility] HospitalEvaluation note* Diagnosis Supervision of normal first , antepartum- Primary documented in this encounter [facility]* Diagnosis Well woman exam with routine gynecological exam- Primary Routine gynecological examination documented in this encounter [facility]* Diagnosis Well adult exam- [...] full remission documented in this encounter [facility]* Diagnosis Breast pain, right Mastodynia documented in this encounter [facility]* Diagnosis Onset Date Resolution Status Infertility associated with anovulation acute PCOS (polycystic ovarian syndrome) acute Encounter for routine gynecological examination noneactive PCOS (polycystic ovarian syndrome) acute [facility] Work Phone: Evaluation note* Diagnosis URI, acute- Primary Acute upper respiratory infections of unspecified site Acute otitis media, right Unspecified otitis media Acute cough [facility] this encounter [facility]* Diagnosis Encounter for assisted reproductive fertility procedure cycle documented in this encounter [facility] Work Phone: Evaluation note* Diagnosis Encounter for assisted reproductive fertility procedure cycle documented in this encounter [facility] Work Phone: Evaluation note* Diagnosis Encounter for assisted reproductive fertility procedure cycle documented in this encounter [facility] Work Phone: Evaluation note* Diagnosis Encounter for assisted reproductive fertility procedure cycle documented in this encounter [facility] Work Phone: Evaluation note* Diagnosis Encounter for test, result positive (HHS-HCC) documented in this encounter [facility] Work Phone: Evaluation note* Diagnosis Encounter for test, result positive (HHS-HCC) documented in this encounter [facility] Work Phone: Evaluation note* Diagnosis Viral URI with cough- Primary Acute upper respiratory infections of unspecified site [facility] Attachments The following attachments cannot be sent through Care Everywhere. * Breast Health ([facility]) (Estonian) * Breast Self-Exam (Estonian) documented in this encounterOSU Community Memorial HospitalProgress note Author Apple Lao [facility] Note Date/Time February 26, 2025 9:38a m [facility] [address], [address] [place] [address] OFFICE VISIT Date of Service: 02/26/25 MR#: [id number] Acct: [id number] Name: BARBY CABALLERO Rep #: [id number] : 1990 Provider: Dr. 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 Date Name GA/Weeks Outcome Route Bth Weight Infant Gen Labor Lgth Anesthesia Del Locatn Provider FOB 07/18/21 Larry 40 live - full term 7lbs 7oz Male [facility] [place] Delivery Date: 07/18/21 Last Updated by: [...] Performing Provider: Apple Lao MD Performing Location: [facility] Administered by: Aziza Olson on 02/26/25 08:56 Dose Route Admin Location Dispensed Lot Number Expiration Date [place] Administrator 1,500 unit IM right gluteal 1 ea [id number] 03/05/27 71678-626-9 0 [employer] [facility] Results POC Urinalysis 2 Dip (Clinic) Office [...] Cosigner Signature: Date (if applicable) CC: ~ [facility] Work Phone: Progress note Author Edel Diehl [facility] Note Date/Time April 07, 2025 10:55 am [facility] [address] [place] [address], [address] [place] [address] OFFICE VISIT Date of Service: 04/07/25 MR#: [id number] Acct: [id number] Name: DONGKiranBARBYVICKI BLAND Rep #: [id number] : 1990 Provider: Dr. 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 Date Name GA/Weeks Outcome Route Bth Weight Gen Labor Lgth Anesthesia Del Locatn Provider FOB 07/18/21 Larry 40 live - full term 7lbs 7oz Male [facility] [place] Delivery Date: 07/18/21 Last Updated [...] transfer. declines NIPT had genetic testing at [facility] 11/05/24 -?-?-?-?-?-?-?-?-?-?--?-?- 12w 1d 260 lb [...] Symptoms of Preeclampsia, Infant Feeding No , [place] Education and Family Medical Leave or Disability [...] Cosigner Signature: Date (if applicable) CC: ~ [facility] Work Phone: Remnir for referral (narrative)No reason for referral information availableSonoma Valley Hospital Work Phone: Reason for visit Narrative* Imaging (Routine) - Authorized Specialty Diagnoses / Procedures Referred By Adia vicente Referred To Contact Radiology Diagnoses Encounter for assisted reproductive fertility procedure cycle Procedures US PELVIS TRANSABDOMINAL WITH TRANSVAGINAL Levon Braxton MD [address] [facility] [place] [address] Phone: tel: fax: Referral ID Status Reason Start Date Expiration Date Visits Requested Visits Authorized [id number] Authorized Perform Procedure 4 08/13/2025 1 1 [facility] Work Phone: Reason for visit Narrative* Imaging (Routine) - Authorized Specialty Diagnoses / Procedures Referred By Contac t Referred To Contact Radiology Diagnoses Encounter for assisted reproductive fertility procedure cycle Procedures US PELVIS TRANSABDOMINAL WITH TRANSVAGINAL Levon Braxton MD [address] [place] [address] Phone: tel: fax: Referral ID Status Reason Start Date Expiration Date Visits Requested Visits Authorized [id number] Authorized Perform Procedure 4 08/14/2025 1 1 [facility] Work Phone: Reason for visit Narrative* Imaging (Routine) - Authorized Specialty Diagnoses / Procedures Referred By Contac t Referred To Contact Radiology Diagnoses Encounter for test, result positive (HHS-HCC) Procedures US PELVIS OB TRANSABDOMINAL W TRANSVAGINAL UP TO 1ST TRIMESTER Levon Braxton MD [address] [place] [address] Phone: tel: fax: Referral ID Status Reason Start Date Expiration Date Visits Requested Visits Authorized [id number] Authorized Perform Procedure 4 09/15/2025 1 1 [facility] Work Phone: Reason for visit Narrative* Imaging (Routine) - Authorized Specialty Diagnoses / Procedures Referred By Contac t Referred To Contact Radiology Diagnoses Encounter for test, result positive (HHS-HCC) Procedures US PELVIS OB TRANSABDOMINAL W TRANSVAGINAL UP TO 1ST TRIMESTER Levon Braxton MD [address] [place] [address] Phone: tel: fax: Referral ID Status Reason Start Date Expiration Date Visits Requested Visits Authorized [id number] Authorized Perform Procedure 4 09/25/2025 1 1 [facility] Work Phone: History of Present Illness * Janes Gutiérrez MD - 08/20/2018 9:07 AM EST Formatting of this note may be different from the original. [facility] [address] [place] [id number] Hematology and Oncology Progress Note Patient Name: Barby Caballero MR #: [id number] : 1990 Date of Service: 08/20/18 Clinician: Janes Gutiérrez MD DIAGNOSIS Leukocytosis, etiology unknown. Dictation on: 08/20/2018 9:09 AM by: JANES GUTIÉRREZ [[id number]] History of Present Illness: Ms. Barby Caballero [...] bowel disease or arthritis. 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 For some reason, her CRP has been high over the last year. By reviewing her chart, she had leukocytosis for almost a year now. She is not on any steroid product. Dictation on: 08/20/2018 9:36 AM by: JANES GUTIÉRREZ [[id number]] Allergies Allergen Reactions Amoxicillin Diarrhea and GI [...] on: 08/20/2018 9:37 AM by: JANES GUTIÉRREZ [[id number]] Orders Placed This Encounter CBC and Differential Janes Gutiérrez MD CC: Marta Del Valle MD in this encounter* Janes Gutiérrez MD - 01/22/2020 1:48 PM EDT [facility] [address] [facility] [address] [facility] [phone] Hematology and Oncology Progress Note Patient Name: Barby Caballero MR #: [id number] : 1990 Date of Service: 02/18/2019 Clinician: [...] bowel disease or arthritis. 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 For some reason, her CRP has [...] back negative. She is clinically asymptomatic. 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 CBC stable with WBC 5.15, Hgb [...] file Gets together: Not on file Attends jewish service: Not on file Active member of [...] Skin Lesion Additional comments: Left abdomen since pipe line walker unchanged Last edited by Will Prabhakar MD [...] - 07/27/2020 10:40 AM EDT Patient Name: [facility] Location: Barby Caballero [address] [place] [id number] Date Of : Date Of Visit: 1990 07/27/2020 MRN# Provider: [id number] Marli Thompson PA-C Chief Complaint Patient presents [...] . famotidine (PEPCID) 40 MG tablet vit 82-okwc-ymodr-dha ( + DHA) 28 mg iron- 975 [...] go immediately to ED for further evaluation [facility] COVID-19 Post-swabbing Instructions We will do our best to update you as soon as we receive your test results, but if we had to send your test to be run at the lab, you may see the results on MyChart or receive a call from [facility] before we are able to contact [...] results. - If you have an active [employer] account, and your COVID-19 test is negative (not detected), then you will be notified through your [employer] account. You should call the urgent care if you have any further questions. - If your COVID-19 test is positive (detected), you will receive a phone call to discuss your results and answer any questions you might have at that time. Please make sure [facility] has your updated phone number so we can contact you. [facility] will notify the [place] Department of [facility] of any positive results to comply with [...] and warm water and/or alcohol based hand pad extraction tender, scrubbing your hands for at least 20 [...] Other COVID Questions? CDC - https://www.cdc.gov/coronavirus/2019-ncov/index.html - https://www.cdc.gov/coronavirus/2019-ncov/xg-oux-ylo-sick/quarantine.html [place] Department [facility] - Website: https://coronavirus.[place].gov/wps/portal/gov/covid-19/home - Hotline: 837-4-POR-ODH (725-925-8265) [facility]: https://blog.[facility].Per Vices/series/lixqr-14-jrgopwerujx-toolkit/ documented in this encounter* Janes Gutiérrez MD - 08/19/2019 11:05 AM EST [facility] [address] [facility] [phone] Hematology and Oncology Progress Note Patient Name: Barby Caballero MR #: [id number] : 1990 Date of Service: 08/19/19 Clinician: [...] bowel disease or arthritis. 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 For some reason, her CRP has [...] days. No fever or chills. 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 Dictation on: 08/19/2019 11:07 AM by: JANES GUTIÉRREZ [[id number]] Allergies Allergen Reactions Amoxicillin Diarrhea and GI [...] file Gets together: Not on file Attends jewish service: Not on file Active member of [...] on: 08/19/2019 11:08 AM by: JANES GUTIÉRREZ [[id number]] Orders Placed This Encounter famotidine (PEPCID) 40 [...] sent through Care Everywhere. * Abdominal Pain (Estonian) documented in this encounter* Instructions* Laurent Duque MD - 03/19/2019 Continue taking your home medications as prescribed. Follow-up with your family doctor first available appointment. Return to the emergency room for any worsening symptoms or concerns * Attachments The following attachments cannot be sent through Care Everywhere. 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 No November 10, 2024 8:21pm Advance Directive Response Recorded Date/ Time Do you have a Healthcare Power of Staff Interpreter? unsu re May 12, 2025 6:17am Summary Purpose Family History No Family History Records Found Relationship Condition Age at Onset Recorded Date/T sherri mother Hypertension Unknown grandfather Cardiac disease Unknown Hypertension Unknown Diabetes mellitus Unknown Malignant neoplasm Unknown Macular degeneration Unknown grandmother Macular degeneration Unknown Instructions * Patient Instructions* Sandie Tyler MA - 08/23/2020 9:02 AM EST Effective 10/14/2019, all [employer] users will be automatically enrolled in paperless billing in an effort to save our environment by eliminating waste & reduce healthcare costs. A monthly notification will be sent to your e-mail address on file indicating you have a new billing statement available in [employer]. If you prefer to receive paper statements, log into [employer] at [employer] to update your e-mail, text and mail preferences (opting out of paperless billing). Please direct further questions to Customer Service at [phone] or [email or web address]. documented in this encounter* Patient Instructions* Marli [...] go immediately to ED for further evaluation [facility] COVID-19 Post-swabbing Instructions We will do our best to update you as soon as we receive your test results, but if we had to send your test to be run at the lab, you may see the results on MyChart or receive a call from [facility] before we are able to contact [...] results. - If you have an active [employer] account, and your COVID-19 test is negative (not detected), then you will be notified through your [employer] account. You should call the urgent care if you have any further questions. - If your COVID-19 test is positive (detected), you will receive a phone call to discuss your results and answer any questions you might have at that time. Please make sure [facility] has your updated phone number so we can contact you. [facility] will notify the [facility] of any positive results to comply with [...] and warm water and/or alcohol based hand pad extraction tender, scrubbing your hands for at least 20 [...] Other COVID Questions? CDC - https://www.cdc.gov/coronavirus/2019-ncov/index.html - https://www.cdc.gov/coronavirus/2019-ncov/xz-tcb-itu-sick/quarantine.html [place] Department of Health - Website: https://coronavirus.[place].gov/wps/portal/gov/covid-19/home - Hotline: 565-8-RHR-ODH (155-868-9020) [facility]: [email or web address] [email or web address]/[email or web address]-[email or web address]-[email or web address]/ documented in this encounter Reason for Referral Specialty Diagnoses / Procedures Referred By Adia t Referred To Contact Diagnoses Prolonged Marta Del Valle MD [address] [place] [address] Referral ID Status Reason Start Date Expiration Date V isits Requested Visits Authorized [id number] New Request 09/27/2022 10/22/2023 1 1 Specialty Diagnoses / Procedures Referred By Adia t Referred To Contact Radiology Diagnoses Encounter for assisted reproductive fertility procedure cycle Procedures US PELVIS TRANSABDOMINAL WITH TRANSVAGINAL US pelvis transvaginal Levon Braxton MD [address] [place] [address] Referral ID Status Reason Start Date Expiration Date Visits Requested Visits Authorized [id number] Pending Review Perform Procedure 06/11/2024 06/11/2025 1 1 Specialty Diagnoses / Procedures Referred By Adia t Referred To Contact Radiology Diagnoses Encounter for assisted reproductive fertility procedure cycle Procedures GERRY US Pelvis Limited Follicles - Follicle Studies Performed Levon Braxton MD [address] [place] [address] Referral ID Status Reason Start Date Expiration Date Visits Requested Visits Authorized [id number] Authorized Perform Procedure 06/19/2024 06/19/2025 1 1 Specialty Diagnoses / Procedures Referred By Adia t Referred To Contact Radiology Diagnoses Encounter for assisted reproductive fertility procedure cycle Procedures US PELVIS TRANSABDOMINAL WITH TRANSVAGINAL Levon Braxton MD [address] [facility] [place] [address] Referral ID Status Reason Start Date Expiration Date Visits Requested Visits Authorized [id number] Authorized Perform Procedure 06/15/2024 06/15/2025 1 1 Referral ID Status Reason Start Date Expiration Date Visits Requested Visits Authorized [id number] Authorized Perform Procedure 06/22/2024 06/22/2025 1 1 Referral ID Status Reason Start Date Expiration Date Visits Requested Visits Authorized [id number] Authorized Perform Procedure 06/15/2024 06/15/2025 1 1 Referral ID Status Reason Start Date Expiration Date Visits Requested Visits Authorized [id number] Authorized Perform Procedure 06/24/2024 06/24/2025 1 1 Referral ID Status Reason Start Date Expiration Date Visits Requested Visits Authorized [id number] Authorized Perform Procedure 06/15/2024 06/15/2025 1 1 Chief Complaint and Reason for Visit Chief Complaint 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 Reason for Visit Infertility associat [...] 2024 2:22pm Conceived by in vitro fertilization [facility]2024 2:22pm Depression with anxiety November 05 2:22pm Family history of genetic disorder [facility]2024 2:22pm GERD (gastroesophageal reflux disease) [facility] 2024 2:22pm H/O section November 05, 2024 2:22pm Infertility associated with anovulation November 05, 2024 2:22pm Marijuana use November 05, 2024 2 :22pm Obesity affecting October 2:22pm PCOS (polycystic ovarian syndrome) [facility]2024 2:22pm November 05, 2024 2 :22pm Rh negative status during 2024 2:22pm Sleep apnea November 05, 2024 2 :22pm Supervision of high-risk [facility] 2024 2:22pm AMA (advanced maternal age) multigravida 35+ December 03, 2024 1:25pm Conceived by in vitro fertilization [facility] 2024 1:25pm Depression with anxiety December 03, 2024 1:25pm Family history of genetic disorder December 03, 2024 1:25pm GERD (gastroesophageal reflux disease) [facility] 2024 1:25pm H/O section December [...] 2025 2:11pm GERD (gastroesophageal reflux disease) [facility] 2024 2:11pm H/O section March 10, 2025 [...] March 10, 2025 2:11pm Abnormal glucose affecting Eto 2024 2:10pm AMA (advanced maternal age) multigravida 35+ March 26, 2025 2:10pm Conceived by in vitro fertilization March 26, 2025 2:10pm Depression with anxiety March 26, 2025 2:10pm Family history of genetic disorder March 26, 2025 2:10pm GERD (gastroesophageal reflux disease) J [facility] 2024 2:10pm H/O section March 26, 2025 [...] 2025 2:11pm GERD (gastroesophageal reflux disease) J [facility] 2024 2:11pm H/O section March 10, 2025 [...] 2025 2:10pm GERD (gastroesophageal reflux disease) J [facility] 2024 2:10pm H/O section March 26, 2025 [...] 2025 9:54am GERD (gastroesophageal reflux disease) J [facility] 2024 9:54am H/O section April 07, 2025 [...] 2025 2:10pm GERD (gastroesophageal reflux disease) J [facility] 2024 2:10pm H/O section March 26, 2025 [...] 2025 9:54am GERD (gastroesophageal reflux disease) J [facility] 2024 9:54am H/O section April 07, 2025 [...] 2025 2:10pm GERD (gastroesophageal reflux disease) J [facility] 2024 2:10pm H/O section March 26, 2025 [...] 2025 9:54am GERD (gastroesophageal reflux disease) J [facility] 2024 9:54am H/O section April 07, 2025 [...] 10, 2025 2:11pm GERD (gastroesophageal reflux disease) [facility] 2024 2:11pm H/O section March 10, [...] 2025 2:10pm GERD (gastroesophageal reflux disease) J [facility] 2024 2:10pm H/O section March 26, 2025 [...] BILATERAL MAMMO DIAGNOSTIC BILATERAL Lawrence Young MD [address] [place] [phone] Referral ID Status Reason Start Date Expiration Date V isits Requested Visits Authorized [id number] New Request 12/19/2022 01/13/2024 1 1 Reason Comments Cough Fevers x4 days Specialty Diagnoses / Procedures Referred By Adia vicente Referred To Contact Radiology Diagnoses Encounter for assisted reproductive fertility procedure cycle Procedures US PELVIS TRANSABDOMINAL WITH TRANSVAGINAL US pelvis transvaginal Levon Braxton MD [address] [place] [address] Referral ID Status Reason Start Date Expiration Date Visits Requested Visits Authorized [id number] Pending Review Perform Procedure 06/11/2024 06/11/2025 1 1 Specialty Diagnoses / Procedures Referred By Adia vicente Referred To Contact Radiology Diagnoses Encounter for assisted reproductive fertility procedure cycle Procedures US PELVIS TRANSABDOMINAL WITH TRANSVAGINAL Levon Braxton MD [address] [place] [address] Referral ID Status Reason Start Date Expiration Date Visits Requested Visits Authorized [id number] Authorized Perform Procedure 06/15/2024 06/15/2025 1 1 Referral ID Status Reason Start Date Expiration Date Visits Requested Visits Authorized [id number] Authorized Perform Procedure 06/15/2024 06/15/2025 1 1 Referral ID Status Reason Start Date Expiration Date Visits Requested Visits Authorized [id number] Authorized Perform Procedure 06/15/2024 06/15/2025 1 1 Reason Comments Cough Max Alan PA-C - 07/29/2019 1:14 PM Mirta Davenport RN - 07/29/2019 12:15 PM Mirta Davenport RN - 07/29/2019 10:40 AM Rebeca Jiménez RN - 07/29/2019 10:25 AM EDT ED Notes (unrecognized secti on and content) [facility] NAME: Barby Caballero PCP: Marta Del Valle MD AGE: 28 y.o. CSN: [id number] ED Course / Medical Decision Making: After [...] file Gets together: Not on file Attends jewish service: Not on file Active member of [...] Procedure Abnormality Status --------- ------ CBC Auto Differential[[id number]] Abnormal Final result Please view results for [...] Otherwise unremarkable right upper quadrant abdominal ultrasound. [employer] Workstation ID: [id number] No current facility-administered medications [...] ER worsening or new concerning symptoms [address] [facility] [address] Contact information for after-discharge care Follow-up information has not been specified. New Prescriptions ondansetron (Zofran ODT) 4 MG disintegrating tablet Dissolve 1 (one) tablet (4 mg total) on top of tongue every 6 (six) hours as needed for nausea . 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 Specialty: Internal Medicine [address] [place] [address] [facility] [address] Contact information for after-discharge care Follow-up [...] file Gets together: Not on file Attends jewish service: Not on file Active member of [...] atelectatic change with no other acute process. [facility] Workstation ID: [id number] No results found. Medications [...] expedite correspondence this note was generated by [employer] voice recognition software. Some grammatical or spelling [...] Procedure Abnormality Status --------- ------ CBC Auto Differential[[id number]] Abnormal Final result Please view results for [...] took protonix at dinner which she had surinamese fries and 1 [place] [place] drink. documented [...] section and content) DATE CREATED AUTHOR 07/27/2020 [facility] DATE CREATED AUTHOR AUTHOR'S ORGANIZ ATION 08/23/2020 [facility] DATE CREATED AUTHOR AUTHOR'S ORGANIZ ATION 10/04/2021 [facility] DATE CREATED AUTHOR AUTHOR'S ORGANIZ ATION 10/06/2021 [facility] DATE CREATED AUTHOR AUTHOR'S ORGANIZ ATION 10/08/[address] 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 Saw 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 Relationship Specialty Start Date End Date Marta Del Valle MD PCP - General Internal Medicine 12/09/13 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 Operator Relationship Specialty Start Date End Date Marta Del Valle MD PCP - General Internal Medicine 12/09/13 Faith Starkey MD [address] [phone] PCP - OBGYN Obstetrics & Gynecology 07/17/21 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 Saw Operator Relationship Specialty Start Date End Date Marta Del Valle MD PCP - General Internal Medicine 12/09/13 Faith Starkey MD [address] [phone] PCP - OBGYN Obstetrics & Gynecology 07/17/21 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 Saw Operator Relationship Specialty Start Date End Date Faith Starkey MD [address] [phone] PCP - OBGYN Obstetrics & Gynecology 07/17/21 Marta Del Valle MD [address] [place] [address], [place] [phone] PCP - General Internal Medicine 01/09/23 Lawrence Young MD [address] [place] [address], [place] [phone] Referring Provider Internal Medicine 01/09/23 Team Status: [...] Primary Care Physician Primary Care Provider Active 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 Saw 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 Relationship Specialty Start Date End Date Faith Starkey MD [address] [phone] PCP - OBGYN Obstetrics & Gynecology 07/17/21 Marta Del Valle MD [address] [place] [address], [place] [phone] PCP - General Internal Medicine 01/09/23 Lawrence Young MD [address] [place] [address], [place] [phone] Referring Provider Internal Medicine 01/09/23 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 Saw Operator Relationship Specialty Start Date End Date Steffen Eisenberg MD [address] [place] [phone] PCP - General Internal Medicine 08/14/24 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 Saw Operator Relationship Specialty Start Date End Date Generic Provider, [place] [address] PCP - General Core Mounter 06/15/24 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 Saw Operator Relationship Specialty Start Date End Date Generic Provider, [place] [address] PCP - General Core Mounter 06/15/24 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 Saw Operator Relationship Specialty Start Date End Date Generic Provider, [place] [address] PCP - General Core Mounter 06/15/24 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 Saw Operator Relationship Specialty Start Date End Date Generic Provider, [place] [address] PCP - General Core Mounter 06/15/24 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 Saw Operator Relationship Specialty Start Date End Date Steffen Eisenberg MD [address] [facility] [place] [phone] PCP - General Internal Medicine 08/14/24 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 Saw Operator Relationship Specialty Start Date End Date Steffen Eisenberg MD [address] [place] [phone] PCP - General Internal Medicine 08/14/24 Team [...] Status: Inactive Member Role/Relationship Status Dates Dr. Steffne Eisenberg MD Primary Care Provider Active Start: [...] Provider Active S tart: April 19, 2025 Kiely Jain CNM Referring Provider Active S tart: [...] Status: Inactive Member Role/Relationship Status Dates Dr. Setffen Eisenberg MD Primary Care Provider Active Start: [...] any alcohol or drug abuse patient.[facility] HospitalIn the event this information is protected by the Federal Confidentiality of Alcohol and Drug Abuse Patient Records regulations: The Federal rules restrict any use of the information to criminally investigate or prosecute any alcohol or drug abuse patient.[facility] FOR RECORDS PERTAINING TO PATIENTS WHO [...] BE BASED ON THE PRIMARY CLINICAL RECORDS. [facility] Compliance [employer] [facility]. provides no warranty or guarantee of the accuracy or completeness of information in this document.
--- OUTSIDE RECORDS SUMMARY | 2025-05-24 20:21 | XMS RPT_ITS | CCD ---
Author Organization [facility] CliniSymt Care Team Providers Care Shaker Washer Name Role Phone Marta Del Valle Unavailable [...] Julissa HERNANDEZ Attending Unavailable MARTA DEL VALLEBETH [facility] Julissa Saleh Admitting Unavailable MARTA DEL VALLE Primary Care Marta Liu MD Primary Care Provider Marta Del Valle MD Primary Care Provider Faith Starkey MD Unavailable Marta Del Valle MD Primary Care Provider [phone] Lawrence Young MD Unavailable [phone] MARTA DEL VALLE Attending Unavailable MARTA DEL [...] Unavailable Dr. Edel Bullock Attending Provider [phone] SHIRA DEL VALLEIN Referring Provider Unavailable Dr. Edel Bullock Referring Provider [phone] Dr. Edel Bullock Other Provider Care Physician, No Primary Primary Care Provider Unavailable Unavailable Primary Care Provider UnavailFaith Ny MD Unavailable Marta Del Valle MD Primary Care Provider [phone] Lawrence Young MD Unavailable Steffen Eisenberg MD [...] Provider Zander WOLFE, Dr. Jaffe Attending Provider [phone] Ld Fermin MD Emergency Provider Tashia WOLFE, Dr. Chiu Attending Provider [phone] Dr. Apple Lao MD Referring Provider Dr. [...] Provider EDEL ROCK Referring Unavailab le FAINA, STEFFEN [...] 30) Mariana Jonas CNM Attending Provider [phone] [place], Steffen Attending Unavailable [place], Steffen Referring Unavailable [place], Steffen Primary Care Unavailable [place], Steffen Attending Unavailable [place], Steffen Primary Care Unavailable [place], Steffen Primary Care Unavailable Edel Bullock Referring Unavailabl e Vande Edel Diehl Attending Unavailabl e [place], Steffen Primary Care Unavailable [place], Steffen Referring Unavailable Edel Bullock Attending Unavailabl e Faina, Steffen Primary Care Unavailable Apple Lao Attending Unavailable Apple Lao Referring Unavailable [place], Steffen Referring Unavailable [place], Steffen Attending Unavailable Care Physician, No Primary Primary Care Unava ilable [place], Steffen Primary Care Unavailable Edel Bullock Attending Unavailabl e Shone Edel Diehl Referring Unavailabl e Faina, Steffen Primary Care Unavailable Kiley Jain Attending Unavailable Kiley Jain Referring Unavailable Edel Bullock Consulting Unavailabl e [place], Steffen Primary Care Unavailable Edel Bullock Referring Unavailabl e Vande Velrico, Edel Attending Unavailabl e Faina, Steffen Referring Unavailable Faina, Steffen Primary Care Unavailable Apple Lao Attending Unavailable [place], Steffen Attending Unavailable Care Physician, No Primary Referring Unava ilable Care Physician, No Primary Primary Care Unava ilable Faina, Steffen Referring Unavailable [place], Steffen Primary Care Unavailable Edel Bullock Attending Unavailabl e Faina, Steffen Referring Unavailable [place], Steffen Primary Care Unavailable VandEdel Logan Attending Unavailabl e [place], Steffen Primary Care Unavailable Kiley Jain Attending Unavailable Kiley Jain Referring Unavailable Faina, Steffen Primary Care Unavailable Edel Bullock Attending Unavailabl e [place], Steffen Primary Care Unavailable Ld Fermin Attending Unavailable [place], Steffen Primary Care Unavailable Edel Bullock Referring Unavailabl e Edel Bullock Attending UnavailLevon Sprague Attending Unavailable Levon Braxton Referring Unavailable Care Physician, No Primary Primary Care Unava ilable Faina, Steffen Referring Unavailable [place], Steffen Primary Care Unavailable Edel Bullock Attending Unavailabl e [place], Steffen Referring Unavailable Faina, Steffen Primary Care Unavailable Vande Edel Diehl Attending Unavailabl e Faina, Steffen Referring Unavailable [place], Steffen Primary Care Unavailable Kiley Jain Attending Unavailable [place], Steffen Primary Care Unavailable Edel Bullock Referring Unavailabl e Edel Bullock Attending Unavailabl e Vande Velde Edel Admitting Unavailabl e Faina, Steffen Referring Unavailable Faina, Steffen Primary Care Unavailable Apple Lao Attending Unavailable [place], Steffen Primary Care Unavailable Kiley Jain Attending Unavailable Kiley Jain Referring Unavailable [place], Steffen Referring Unavailable Faina, Steffen Primary Care Unavailable Edel Bullock Attending Unavailabl e [place], Steffen Referring Unavailable Faina, Steffen Primary Care Unavailable Apple Lao Attending Unavailable Faina, Steffen Primary Care Unavailable VandEdel Logan Referring Unavailabl Apple Godoy Attending Unavailable Edel Bullock Admitting Unavailabl e Shone Edel Diehl Consulting Unavailabl Mariana Arechiga Attending Unavailable Aida Shields Attending Unavailable Faina, Steffen Primary Care Unavailable [place], Steffen Referring Unavailable [place], Steffen Primary Care Unavailable Pedro REFRACTORY TILE HELPER, Aziza Attending Unavailable [place], Steffen Primary Care Unavailable Faina, Steffen Primary Care Unavailable Kiley Jain Attending Unavailable Kiley Jain Referring Unavailable VandEdel Logan Consulting Unavailabl Kiley Saunders Consulting Unavailable Vande Edel Diehl Attending Unavailabl e [place], Steffen Referring Unavailable Faina, Steffen Primary Care Unavailable VandEdel Logan Attending Unavailabl e Faina, Steffen Referring Unavailable Faina, Steffen Primary Care Unavailable Edel Bullock Attending Unavailabl e Allergies Allergy Classification Reported Allergen(s) Allergy Type Date of Onset Reaction(s) Facility (13 sources) Amoxicillin; Translations: [AMOXICILLIN] Drug Allergy 03-10-201 1 Diarrhea, GI Intolerance [facility] (2 sources) ALLERGIES NOT ON FILE; Translations: [ALLERGIES NOT ON FILE] Propensity to adverse reactions (disorder) [facility] 2 Repository Medications Current Medications Medication Drug [...] 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 0 09/02/2019 Active Vit-Fe Dgy-HR-Xbslo (PNV Plus Multivit+DHA) 27-1 & 312 MG Misc (4 sources) Start: 07-29-2024 Vit-Fe Aoj-QY-Jcfek (PNV Plus Multivit+DHA) 27-1 & 312 MG Misc 1 tab + 1 cap daily. Due for yearly follow up - must be seen to get additional refills 180 Each 07/29/2024 Active Start: 10-29-2023 End: 07-29-2024 take 1 tablet by mouth once daily Vit-Fe Int-TD-Sywqg (PNV Plus Multivit+DHA) 27-1 & 312 MG Misc TAKE 1 TAB & 1 CAPSULE BY MOUTH EVERY DAY 180 Each 1 10/29/2023 07/29/2024 Discontinued Start: 07-03-2022 End: 09-27-2022 take 1 tablet by mouth once daily Vit-Fe Qlp-WH-Dbkih (PNV Plus Multivit+DHA) 27-1 & 312 MG Misc TAKE 1 TAB & 1 CAPSULE BY MOUTH EVERY DAY 0 07/03/2022 09/27/2022 Discontinued (Reorder) Start: 07-03-2022 take 1 tablet by claude th once daily Vit-Fe Auy-CD-Ciclp (PNV Plus Multivit+DHA) 27-1 & 312 MG [...] mg/ml oral solution (2 sources) Phenothiazine, Uncompetitive O-vnwsxz-X-asparta te Receptor Antagonist, Sigma-1 Agonist Start: 08-10-2022 [...] Auto (Unsp spec) [#/Vol] 2.88 10*3/uL 0.83-4.51 [facility] Absolute neutrophil countOrd ered By: Apple Lao on 05-13-2025 Neutrophils (Bld) [#/Vol] 12.5 10*3/uL High 2.0-7.7 [facility] Activated partial thrombopla stin time (aPTT) in platelet poor plasma by coagulation aOrdered By: Apple Lao on 05-13-2025 aPTT Coag (PPP) [Time] 22.8 s Low 24.1-36.2 [facility] Automated lymphocyte count a s percentage of total leukocytesOrdered By: Apple Lao on 05-13-2025 Lymphocytes/100 WBC Auto (Unsp spec) 17.1 % Low 19-41 [facility] Basophil percentageOrdered B y: Apple Lao on 05-13-2025 Basophils/100 WBC (Bld) 0.4 % 0-1 [facility] CBC W/Diff, Automatedon 04-30 Absolute Lymph 2.88 X10 3/uL Normal 0.83-4.51 [facility] Comment on above: Performed By: #### L 100.0100 ####[facility] [address] [place], [address] Absolute Neut 12.5 X10 3/uL High 2.0-7.7 [facility] Comment on above: Performed By: #### L 100.0100 ####[facility] [address] [place], [address] Basophils/100 WBC (Bld) 0.4 % Normal 0-1 [facility] Comment on above: Performed By: #### L 100.0100 ####[facility] [address] [place], [address] Eosinophils/100 WBC (Bld) 0.9 % Normal 0-5 [facility] Comment on above: Performed By: #### L 100.0100 ####[facility] [address] [place], [address] Erythrocyte distribution width (RBC) [Ratio] 13.6 % Normal 11.6-14.6 [facility] Comment on above: Performed By: #### L 100.0100 ####[facility] [address] [place], [address] Hematocrit (Bld) [Volume fraction] 33.9 % Low 37-47 [facility] Comment on above: Performed By: #### L 100.0100 ####[facility] [address] [place], [address] Hemoglobin (Bld) [Mass/Vol] 11.5 g/dL Low 12.0-15.0 [facility] Comment on above: Performed By: #### L 100.0100 ####[facility] [address] [place], [address] IG% 1.000 High 0.0-0.9 [facility] Comment on above: Result Comment: IG% - Immature Granulocytes (promyelocytes, myelocytes andmetamyelocytes) > 1% indicates that a LEFT SHIFT is Present. Performed By: #### L 100.0100 ####[facility] [address] [place], [address] Lymphocytes/100 WBC (Bld) 17.1 % Low 19-41 [facility] Comment on above: Performed By: #### L 100.0100 ####[facility] [address] [place], [address] MCH (RBC) [Entitic mass] 29.6 pg Normal 27.0-32.0 [facility] Comment on above: Performed By: #### L 100.0100 ####[facility] [address] [place], [address] MCHC (RBC) [Mass/Vol] 33.9 g/dL Normal 32-36 [facility] Comment on above: Performed By: #### L 100.0100 ####[facility] [address] [place], [address] MCV (RBC) [Entitic vol] 87.4 fL Normal 81-99 [facility] Comment on above: Performed By: #### L 100.0100 ####[facility] [address] [place], [address] Monocytes/100 WBC (Bld) 6.6 % Normal 0-10 [facility] Comment on above: Performed By: #### L 100.0100 ####[facility] [address] [place], [address] Neutrophils/100 WBC (Bld) 74.0 % High 47-70 [facility] Comment on above: Performed By: #### L 100.0100 ####[facility] [address] [place], [address] Nucleated RBC (Bld) [#/Vol] 0 10*3/uL Normal 0-5 [facility] Comment on above: Performed By: #### L 100.0100 ####[facility] [address] [place], [address] Platelet mean volume (Bld) [Entitic vol] 9.7 fL Normal 6.2-12.0 [facility] Comment on above: Performed By: #### L 100.0100 ####[facility] [address] [place], [address] Platelets (Bld) [#/Vol] 299 10*3/uL Normal 150-450 [facility] Comment on above: Performed By: #### L 100.0100 ####[facility] [address] [place], [address] RBC (Bld) [#/Vol] 3.88 10*6/uL Low 4.2-5.4 [facility] Comment on above: Performed By: #### L 100.0100 ####[facility] [address] [place], [address] RDW SD 43.1 fl Normal 35.1-43.9 [facility] Comment on above: Performed By: #### L 100.0100 ####[facility] [address] [place], [address] WBC (Bld) [#/Vol] 16.9 10*3/uL High 4.4-11.0 [facility] Comment on above: Performed By: #### L 100.0100 ####[facility] [address] [place], [address] CBC-Complete Blood Cnt No Di ffon 05-13-2025 Erythrocyte distribution width (RBC) [Ratio] 13.6 % Normal 11.6-14.6 [facility] Comment on above: Order Comment: Comme nts: Day #1Reason for Laboratory Test Performed By: #### L 100.0500 ####[facility] [address] [place], [address] Hematocrit (Bld) [Volume fraction] 33.8 % Low 37-47 [facility] Comment on above: Order Comment: Comme nts: Day #1Reason for Laboratory Test Performed By: #### L 100.0500 ####[facility] [address] [place], [address] Hemoglobin (Bld) [Mass/Vol] 11.4 g/dL Low 12.0-15.0 [facility] Comment on above: Order Comment: Comme nts: Day #1Reason for Laboratory Test Performed By: #### L 100.0500 ####[facility] [address] [place], [address] MCH (RBC) [Entitic mass] 29.4 pg Normal 27.0-32.0 [facility] Comment on above: Order Comment: Comme nts: Day #1Reason for Laboratory Test Performed By: #### L 100.0500 ####[facility] [address] [place], [address] MCHC (RBC) [Mass/Vol] 33.7 g/dL Normal 32-36 [facility] Comment on above: Order Comment: Comme nts: Day #1Reason for Laboratory Test Performed By: #### L 100.0500 ####[facility] [address] [place], [address] MCV (RBC) [Entitic vol] 87.1 fL Normal 81-99 [facility] Comment on above: Order Comment: Comme nts: Day #1Reason for Laboratory Test Performed By: #### L 100.0500 ####[facility] [address] [place], [address] Platelet mean volume (Bld) [Entitic vol] 9.6 fL Normal 6.2-12.0 [facility] Comment on above: Order Comment: Comme nts: Day #1Reason for Laboratory Test Performed By: #### L 100.0500 ####[facility] [address] [place], [address] Platelets (Bld) [#/Vol] 228 10*3/uL Normal 150-450 [facility] Comment on above: Order Comment: Comme nts: Day #1Reason for Laboratory Test Performed By: #### L 100.0500 ####[facility] [address] [place], [address] RBC (Bld) [#/Vol] 3.88 10*6/uL Low 4.2-5.4 [facility] Comment on above: Order Comment: Comme nts: Day #1Reason for Laboratory Test Performed By: #### L 100.0500 ####[facility] [address] [place], [address] RDW SD 43.1 fl Normal 35.1-43.9 [facility] Comment on above: Order Comment: Comme nts: Day #1Reason for Laboratory Test Performed By: #### L 100.0500 ####[facility] [address] [place], [address] WBC (Bld) [#/Vol] 15.0 10*3/uL High 4.4-11.0 [facility] Comment on above: Order Comment: Comme nts: Day #1Reason for Laboratory Test Performed By: #### L 100.0500 ####[facility] [address] [place], [address] Eosinophil percentageOrdered By: Apple Lao on 05-13-2025 Eosinophils/100 WBC (Bld) 0.9 % 0-5 [facility] Erythrocyte distribution wid th ratioOrdered By: Apple Lao on 05-13-2025 Erythrocyte distribution width (RBC) [Ratio] 13.6 % 11.6-14.6 [facility] Erythrocyte distribution wid th standard deviationOrdered By: Apple Lao on 05-13-2025 Erythrocyte distribution width (RBC) [Ratio] 43.1 fl 35.1-43.9 [facility] Fibrinogenon 05-13-2025 FIBRINOGEN 422 mg/dl Normal 203-444 [facility] Comment on above: Performed By: #### L 300.4700, L300.3900, L300.4310 ####[facility] [address] [place], [address] Hematocrit Auto (Bld) [Volum e fraction]Ordered By: Apple Lao on 05-13-2025 Hematocrit (Bld) [Volume fraction] 33.9 % Low 37-47 [facility] Hemoglobin measurementOrdere d By: Apple Lao on 05-13-2025 Hemoglobin (Bld) [Mass/Vol] 11.5 g/dL Low 12.0-15.0 [facility] Immature granulocytes/100 WB C Auto (Bld)Ordered By: Apple Lao on 05-13-2025 Immature granulocytes/100 WBC (Bld) 1.000 % High 0.0-0.9 [facility] Comment on above: IG% - Immature Granu locytes (promyelocytes, myelocytes and metamyelocytes) > 1% indicates that a LEFT SHIFT is Present. International normalized rat io (INR) calculationOrdered By: Apple Lao on 05-13-2025 INR Coag (Bld) [Relative time] 1.0 {INR} [facility] Thomas 05-13-2025 ROXANA Positive Abnormal [facility] Comment on above: Result Comment: Ashlee Huertas Study Reference: Negative POSITIVE AB* Feto-maternal hemorrhage ( RBCs): 10 mL. TESTING PERFORMED AT [facility]. ORIGINAL REPORT ON FILE IN LAB CONTAINS ADDITIONAL TEST SITE INFORMATION. Performed By: #### L 803.2300 ####[facility] [address] [place], [place], [id number] MCV (mean corpuscular volume ) determinationOrdered By: Apple Lao on 05-13-2025 MCV (RBC) [Entitic vol] 87.4 fL 81-99 [facility] Mean corpuscular hemoglobin (MCH) determinationOrdered By: Apple Lao on 05-13-2025 MCH (RBC) [Entitic mass] 29.6 pg 27.0-32.0 [facility] Mean corpuscular hemoglobin concentration (MCHC) determinationOrdered By: Apple Lao on 05-13-2025 MCHC (RBC) [Mass/Vol] 33.9 g/dL 32-36 [facility] Mean platelet volume determi nationOrdered By: Apple Lao on 05-13-2025 Platelet mean volume (Bld) [Entitic vol] 9.7 fL 6.2-12.0 [facility] Monocyte percentageOrdered B y: Apple Lao on 05-13-2025 Monocytes/100 WBC (Bld) 6.6 % 0-10 [facility] Neutrophil percentageOrdered By: Apple Lao on 05-13-2025 Neutrophils/100 WBC (Bld) 74.0 % High 47-70 [facility] Nucleated red blood cell per centageOrdered By: Apple Lao on 05-13-2025 Nucleated RBC/100 WBC (Bld) [Ratio] 0 % 0-5 [facility] Partial Thromboplast Timeon 05-13-2025 aPTT Coag (Bld) [Time] 22.8 s Low 24.1-36.2 [facility] Comment on above: Performed By: #### L 300.4700, L300.3900, L300.4310 ####[facility] [address] [place], [place], [id number] Platelet countOrdered By: Elena Lao on 05-13-2025 Platelets (Bld) [#/Vol] 299 10*3/uL 150-450 [facility] Prothrombin Time w/INRon INR Coag (PPP) [Relative time] 1.0 {INR} Normal [facility] Comment on above: Performed By: #### L 300.4700, L300.3900, L300.4310 ####[facility] [address] [place], [address] PT Coag (PPP) [Time] 12.8 s Normal 11.7-14.9 [facility] Comment on above: Performed By: #### L 300.4700, L300.3900, L300.4310 ####[facility] [address] [place], [address] Prothrombin timeOrdered By: Apple Lao on 05-13-2025 PT Coag (PPP) [Time] 12.8 s 11.7-14.9 [facility] RBC Auto (Bld) [#/Vol]Ordere d By: Apple Lao on 05-13-2025 RBC (Bld) [#/Vol] 3.88 10*6/uL Low 4.2-5.4 [facility] White blood cell (WBC) count Ordered By: Apple Lao on 05-13-2025 WBC (Bld) [#/Vol] 16.9 10*3/uL High 4.4-11.0 [facility] Amphetamine detection with 1 000 ng/mL as cutoffOrdered By: Edel Diehl on 05-12-2025 Amphetamines Screen method >1000 ng/mL Ql (U) Negative < 200 ng/mL [facility] BRho(D) IGon 05-12-2025 Rho(D) IG Normal [facility] Comment on above: Result Comment: [id number] Rho(D) IG PRSMD TRFSD 05/12/25 [id number] Rho(D) IG PRSMD TRFSD 05/13/25 1138 Performed By: #### B Rho(D) IG, BRHNM ####[facility] [address] [place], [address] CBC W/Diff, Automatedon 08-10 02-2024 Absolute Lymph 2.15 X10 3/uL Normal 0.83-4.51 [facility] Comment on above: Performed By: #### Scotty HODGES, L100.0100 ####[facility] [address] [place], [address] Absolute Neut 9.1 X10 3/uL High 2.0-7.7 [facility] Comment on above: Performed By: #### Scotty HODGES, L100.0100 ####[facility] [address] [place], [address] Basophils/100 WBC (Bld) 0.4 % Normal 0-1 [facility] Comment on above: Performed By: #### Scotty HODGES, L100.0100 ####[facility] [address] [place], [address] Eosinophils/100 WBC (Bld) 1.1 % Normal 0-5 [facility] Comment on above: Performed By: #### Scotty HODGES, L100.0100 ####[facility] [address] [place], [address] Erythrocyte distribution width (RBC) [Ratio] 13.4 % Normal 11.6-14.6 [facility] Comment on above: Performed By: #### Scotty HODGES, L100.0100 ####[facility] [address] [place], [address] Hematocrit (Bld) [Volume fraction] 36.4 % Low 37-47 [facility] Comment on above: Performed By: #### Scotty HODGES, L100.0100 ####[facility] [address] [place], [address] Hemoglobin (Bld) [Mass/Vol] 12.5 g/dL Normal 12.0-15.0 [facility] Comment on above: Performed By: #### Scotty HODGES, L100.0100 ####[facility] [address], [address] IG% 1.300 High 0.0-0.9 [facility] Comment on above: Result Comment: IG% - Immature Granulocytes (promyelocytes, myelocytes andmetamyelocytes) > 1% indicates that a LEFT SHIFT is Present. Performed By: #### Scotty HODGES, L100.0100 ####[facility] [address] [place], [address] Lymphocytes/100 WBC (Bld) 17.3 % Low 19-41 [facility] Comment on above: Performed By: #### Scotty HODGES, L100.0100 ####[facility] [address] [place], [address] MCH (RBC) [Entitic mass] 29.8 pg Normal 27.0-32.0 [facility] Comment on above: Performed By: #### Scotty HODGES, L100.0100 ####[facility] [address], [address] MCHC (RBC) [Mass/Vol] 34.3 g/dL Normal 32-36 [facility] Comment on above: Performed By: #### Scotty HODGES, L100.0100 ####[facility] [address] [place], [address] MCV (RBC) [Entitic vol] 86.7 fL Normal 81-99 [facility] Comment on above: Performed By: #### Scotty HODGES, L100.0100 ####[facility] [address] [place], [address] Monocytes/100 WBC (Bld) 6.7 % Normal 0-10 [facility] Comment on above: Performed By: #### Scotty HODGES, L100.0100 ####[facility] [address] [place], [address] Neutrophils/100 WBC (Bld) 73.2 % High 47-70 [facility] Comment on above: Performed By: #### Scotty HODGES, L100.0100 ####[facility] [address] [place], [address] Nucleated RBC (Bld) [#/Vol] 0 10*3/uL Normal 0-5 [facility] Comment on above: Performed By: #### Scotty HODGES, L100.0100 ####[facility] [address] [place], [address] Platelet mean volume (Bld) [Entitic vol] 9.8 fL Normal 6.2-12.0 [facility] Comment on above: Performed By: #### Scotty HODGES, L100.0100 ####[facility] [address] [place], [address] Platelets (Bld) [#/Vol] 252 10*3/uL Normal 150-450 [facility] Comment on above: Performed By: #### Scotty HODGES, L100.0100 ####[facility] [address] [place], [address] RBC (Bld) [#/Vol] 4.20 10*6/uL Normal 4.2-5.4 [facility] Comment on above: Performed By: #### Scotty HODGES, L100.0100 ####[facility] [address] [place], [address] RDW SD 42.0 fl Normal 35.1-43.9 [facility] Comment on above: Performed By: #### Scotty HODGES, L100.0100 ####[facility] [address] [place], [address] WBC (Bld) [#/Vol] 12.4 10*3/uL High 4.4-11.0 [facility] Comment on above: Performed By: #### Scotty HODGES, L100.0100 ####[facility] [address] 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 [facility] No Panel InformationOrdered By: Edel Diehl on 05-12-2025 Urine Buprenorphine Qualitative Negative < 200 ng/mL [facility] Urine Oxycodone Screen Negative < 100 ng/mL [facility] Operative Reporton Operative Report Normal [facility] Quantitative urine opiates m easurementOrdered By: Edel Diehl on 05-12-2025 Opiates Ql (U) Negative < 300 ng/mL [facility] Rh Negative Mom Workupon SCREEN Positive Abnormal NEGATIVE [facility] Comment on above: Order Comment: Comme nts: Age > 13 Weeksbaby [id number] Result Comment: ASHLEE LI TEST TO FOLLOW. Performed By: #### B Rho(D) IG, BRHNM ####[facility] [address] [place], [place], [id number] ABO and Rh group Nom (Bld) Blood group B Rh(D) negative Normal [facility] Comment on above: Order Comment: Comme nts: Age > 13 Weeksbaby [id number] Performed By: #### B Rho(D) IG, BRHNM ####[facility] [address] [place], [place], [id number] ABO and Rh group Nom (Bld) Blood group B Rh(D) positive Normal [facility] Comment on above: Order Comment: Comme nts: Age > 13 Weeksbaby [id number] Performed By: #### B Rho(D) IG, BRHNM ####[facility] [address] [place], [place], [id number] DIRECT ANTIGLOB Negative Normal NEGATIVE [facility] Comment on above: Order Comment: Comme nts: Age > 13 Weeksbaby Performed By: #### B Rho(D) IG, BRHNM ####[facility] [address] [place], [address] MOM'S ABS Negative Normal [facility] Comment on above: Order Comment: Comme nts: Age > 13 Weeksbaby [id number] Performed By: #### B Rho(D) IG, BRHNM ####[facility] [address] [place], [address] Screening urine fentanyl kaden surementOrdered By: Edel Diehl on 05-12-2025 fentaNYL Screen Ql (U) Negative [facility] Syphilis Antibodieson 2024 Syphilis Abs Non-Reactive Normal Nonreactive [facility] Comment on above: Performed By: #### L 509.8002 ####[facility] [address] [place], [address] Type AND Screenon 05-12-2025 Ab SCREEN GEL Negative Normal [facility] Comment on above: Order Comment: SC-SE CTION Performed By: #### B TS, L100.0100 ####[facility] [address] [place], [address] Urine Drug Screen (VISTA)on 05-12-2025 AMPHETAMINES Negative Normal <1000 ng/mL [facility] Comment on above: Performed By: #### L 505.5000 ####[facility] [address] [place], [address] BARBITIURATES Negative Normal < 200 ng/mL [facility] Comment on above: Performed By: #### L 505.5000 ####[facility] [address] [place], [address] BENZODIAZIPINE Negative Normal < 200 ng/mL [facility] Comment on above: Performed By: #### L 505.5000 ####[facility] [address] [place], [address] BUP Ur Drug Scr Negative Normal < 200 ng/mL [facility] Comment on above: Performed By: #### L 505.5000 ####[facility] [address] [place], [address] COCAINE Negative Normal < 300 ng/mL [facility] Comment on above: Performed By: #### L 505.5000 ####[facility] [address] [facility] [address] Fentanyl Negative Normal [facility] Comment on above: Performed By: #### L 505.5000 ####[facility] [address] [place], [address] METHADONE Negative Normal < 300 ng/mL [facility] Comment on above: Performed By: #### L 505.5000 ####[facility] [address] [place], [address] OPIATES Negative Normal < 300 ng/mL [facility] Comment on above: Performed By: #### L 505.5000 ####[facility] [address] [place], [address] OXYCODONE Negative Normal < 100 ng/mL [facility] Comment on above: Performed By: #### L 505.5000 ####[facility] [address] [place], [address] PCP Negative Normal < 25 ng/mL [facility] Comment on above: Performed By: #### L 505.5000 ####[facility] [address] [place], [address] THC Negative Normal < 50 ng/mL [facility] Comment on above: Performed By: #### L 505.5000 ####[facility] [address] [place], [address] Urine benzodiazepine levelOr dered By: Edel Diehl on 05-12-2025 Benzodiazepines Ql (U) Negative < 200 ng/mL [facility] Urine cocaine levelOrdered B y: Edel Diehl on 05-12-2025 Cocaine Ql (U) Negative < 300 ng/mL [facility] Urine obswt-0-mlfunubflefcxk abinol (THC) measurementOrdered By: Edel Diehl on 05-12-2025 Cannabinoids Screen Ql (U) Negative < 50 ng/mL [facility] Urine phencyclidine (PCP) de tectionOrdered By: Edel Diehl on 05-12-2025 Phencyclidine Ql (U) Negative < 25 ng/mL [facility] [place] Laboratory - Chemistry and C hemistry - challengeOrdered By: Edel Diehl on 05-06-2025 Glucose Ql (U) Negative [facility] Laboratory - UrinalysisOrder ed By: Edel Diehl on 05-06-2025 Protein Ql (U) Negative [facility] [employer] Office Visit Reporton 05-06-2025 [employer] Office Visit Report Normal [facility] Rule out Beta Strep (Grp. B) on 05-03-2025 RANJAN Normal [facility] Comment on above: Performed By: #### M 100.3400 ####[facility] [address] [place], [address] Laboratory - Chemistry and C hemistry - challengeOrdered By: Edel Diehl on 04-28-2025 Glucose Ql (U) Negative [facility] Laboratory - UrinalysisOrder ed By: Edel Diehl on 04-28-2025 Protein Ql (U) Negative [facility] [employer] Office Visit Reporton 04-28-2025 [employer] Office Visit Report Normal [facility] Screening beta-hemolytic Str eptococcus cultureOrdered By: Edel Diehl on 04-28-2025 Beta-hemolytic Streptococcus culture Streptococcus agalactiae (B) Abnormal [facility] OB Biophysical Prof W/O NSTo n 04-22-2025 OB Biophysical Prof W/O NST Normal [facility] Laboratory - Chemistry and C hemistry - challengeOrdered By: Apple Lao on 04-20-2025 Glucose Ql (U) Negative [facility] Laboratory - UrinalysisOrder ed By: Apple Lao on 04-20-2025 Protein Ql (U) Negative [facility] [employer] Office Visit Reporton 04-20-2025 [employer] Developer Office Visit Report Normal [facility] OB Biophysical Prof W/O NSTo n 04-19-2025 OB Biophysical Prof W/O NST Normal [facility] OB Triage Progress Noteon OB Triage Progress Note Normal [facility] OB Biophysical Prof W/O NSTo n 04-15-2025 OB Biophysical Prof W/O NST Normal [facility] L3410.9992on 04-08-2025 [facility] Misc. COMMENT Normal . [facility] Comment on above: Order Comment: [id number] 640serum FZ bile acids Result Comment: Perf ormed at: - [facility] [place] [id number] Director: Huan Kuhn PhD, Phone: [phone] Performed By: #### L 500.4050, L3410.9992 ####[facility] [address] [place], [address] Anion gap in Serum or Plasma Ordered By: Edel Diehl on 04-07-2025 Anion gap [Moles/Vol] 12 mmol/L 5-15 [facility] BUN/creatinine ratioOrdered By: Edel Diehl on 04-07-2025 Urea nitrogen/Creatinine [Mass ratio] 7.7 mg/mg Low 10-20 [facility] Bilirubin, totalOrdered By: Edel Diehl on 04-07-2025 Bilirubin [Mass/Vol] 0.29 mg/dL 0.00-1.30 [facility] [place] Carbon dioxide, total [Moles /volume] in Central venous bloodOrdered By: Edel Diehl on 04-07-2025 CO2 [Moles/Vol] 19.0 mmol/L Low 21.0-32.0 [facility] Chloride assayOrdered By: Mickey Diehl on 04-07-2025 Chloride [Moles/Vol] 107 mmol/L 98-108 [facility] [place] Comprehensive Metabolic Prof ilon 04-07-2025 Albumin [Mass/Vol] 3.6 g/dL Normal 3.5-5.0 [facility] Comment on above: Performed By: #### L 500.4050, L3410.9992 ####[facility] [address] [place], [address] Albumin/Globulin [Mass ratio] 1.1 {ratio} Normal 0.9-2.4 [facility] Comment on above: Performed By: #### L 500.4050, L3410.9992 ####[facility] [address] [place], [address] ALK PHOS 146 U/L High 35-104 [facility] Comment on above: Performed By: #### L 500.4050, L3410.9992 ####[facility] [address] [place], [address] ALT [Catalytic activity/Vol] 21 U/L Normal <=34 [facility] Comment on above: Performed By: #### L 500.4050, L3410.9992 ####[facility] [address] [place], [address] AST [Catalytic activity/Vol] 19 U/L Normal <=31 [facility] Comment on above: Performed By: #### L 500.4050, L3410.9992 ####[facility] [address] [place], [address] Bilirubin [Mass/Vol] 0.29 mg/dL Normal 0.00-1.30 [facility] [place] Comment on above: Performed By: #### L 500.4050, L3410.9992 ####[facility] [address] [place], [address] BUN/CRE 7.7 RATIO Low 10-20 [facility] Comment on above: Performed By: #### L 500.4050, L3410.9992 ####[facility] [address] [place], [address] Calcium [Mass/Vol] 9.2 mg/dL Normal 7.6-11.0 [facility] Comment on above: Performed By: #### L 500.4050, L3410.9992 ####[facility] [address] [place], [address] Chloride [Moles/Vol] 107 mmol/L Normal 98-108 [facility] Comment on above: Performed By: #### L 500.4050, L3410.9992 ####[facility] [address] [place], [address] CO2 [Moles/Vol] 19.0 mmol/L Low 21.0-32.0 [facility] Comment on above: Performed By: #### L 500.4050, L3410.9992 ####[facility] [address] [place], [address] Creatinine [Mass/Vol] 0.58 mg/dL Low 0.70-1.20 [facility] Comment on above: Performed By: #### L 500.4050, L3410.9992 ####[facility] [address] [place], [address] GAP 12 Normal 5-15 [facility] Comment on above: Performed By: #### L 500.4050, L3410.9992 ####[facility] [address] [place], [address] GFR/1.73 sq M.predicted among non-blacks MDRD (S/P/Bld) [Vol rate/Area] 121 mL/min/{1.73_m2} Normal >60 [facility] Comment on above: Result Comment: mL/m in/1.73m2 CKD-EPI Creatinine Equation (2020) Performed By: #### L 500.4050, L3410.9992 ####[facility] [address] [place], [address] Globulin (S) [Mass/Vol] 3.4 g/dL Normal 2.2-4.2 [facility] Comment on above: Performed By: #### L 500.4050, L3410.9992 ####[facility] [address] [place], [address] Glucose [Mass/Vol] 85 mg/dL Normal 70-99 [facility] Comment on above: Performed By: #### L 500.4050, L3410.9992 ####[facility] [address] [place], [address] Potassium [Moles/Vol] 4.0 mmol/L Normal 3.3-5.1 [facility] Comment on above: Performed By: #### L 500.4050, L3410.9992 ####[facility] [address] [place], [address] Sodium [Moles/Vol] 137 mmol/L Normal 133-145 [facility] Comment on above: Performed By: #### L 500.4050, L3410.9992 ####[facility] [address] [place], [address] T PROT 6.9 g/dL Normal 5.9-8.4 [facility] Comment on above: Performed By: #### L 500.4050, L3410.9992 ####[facility] [address] [place], [address] Urea nitrogen [Mass/Vol] 4 mg/dL Normal 4-19 [facility] Comment on above: Performed By: #### L 500.4050, L3410.9992 ####[facility] [address] [place], [address] Glomerular filtration rate ( GFR) estimation/1.73 sq m using serum, plasma, or whole bOrdered By: Edel Diehl on 04-07-2025 GFR/1.73 sq M.predicted among non-blacks MDRD (S/P/Bld) [Vol rate/Area] 121 mL/min/{1.73_m2} >60 [facility] Comment on above: mL/min/1.73m2 CKD-EP I Creatinine Equation (2020) Laboratory - Chemistry and C hemistry - challengeOrdered By: Edel Diehl on 04-07-2025 AST [Catalytic activity/Vol] 19 U/L <32 [facility] [employer] Developer Office Visit Reporton 04-07-2025 Share[employer] Application Developer Office Visit Report Normal [facility] Potassium measurement (mass/ volume)Ordered By: Edel Diehl on 04-07-2025 Potassium (Unsp spec) [Mass/Vol] 4.0 mmol/L 3.3-5.1 [facility] Serum creatinine measurement (mass/volume)Ordered By: Edel Diehl on 04-07-2025 Creatinine [Mass/Vol] 0.58 mg/dL Low 0.70-1.20 [facility] Serum globulin measurementOr dered By: Edel Diehl on 04-07-2025 Globulin (S) [Mass/Vol] 3.4 g/dL 2.2-4.2 [facility] Serum glucose measurement (m ass/volume)Ordered By: Edel Diehl on 04-07-2025 Glucose [Mass/Vol] 85 mg/dL 70-99 [facility] Serum or plasma alanine jung otransferase (ALT) measurementOrdered By: Edel Diehl on 04-07-2025 ALT [Catalytic activity/Vol] 21 U/L <35 [facility] Serum or plasma albumin kenisha urement (mass/volume)Ordered By: Edel Diehl on 04-07-2025 Albumin [Mass/Vol] 3.6 g/dL 3.5-5.0 [facility] Serum or plasma albumin/glob ulin mass ratioOrdered By: Edel Diehl on 04-07-2025 Albumin/Globulin [Mass ratio] 1.1 {ratio} 0.9-2.4 [facility] Serum or plasma alkaline ct sphatase measurementOrdered By: Edel Diehl on 04-07-2025 ALP [Catalytic activity/Vol] 146 U/L High 35-104 [facility] Serum or plasma calcium kenisha urement (mass/volume)Ordered By: Edel Diehl on 04-07-2025 Calcium [Mass/Vol] 9.2 mg/dL 7.6-11.0 [facility] Serum or plasma urea nitroge n measurement (mass/volume)Ordered By: Edel Diehl on 04-07-2025 Urea nitrogen [Mass/Vol] 4 mg/dL 4-19 [facility] Sodium levelOrdered By: Kellen Diehl on 04-07-2025 Sodium [Moles/Vol] 137 mmol/L 133-145 [facility] Total proteinOrdered By: Rachel Diehl on 04-07-2025 Protein [Mass/Vol] 6.9 g/dL 5.9-8.4 [facility] Laboratory - Chemistry and C hemistry - challengeOrdered By: Edel Diehl on 03-26-2025 Glucose Ql (U) Negative [facility] Laboratory - UrinalysisOrder ed By: Edel Diehl on 03-26-2025 Protein Ql (U) Negative [facility] [employer] Office Visit Reporton 03-26-2025 [employer] Developer Office Visit Report Normal [facility] Genital Culture Comprehensiv tracy 03-12-2025 VAC Reason for Exam: contractions No Gardnerella, Neisseria or beta-hemolytic Streptococcus isolated. Presumptive C albicans Amount Growth 2+ Normal [facility] Comment on above: Performed By: #### M 100.3200, M1.1999 ####[facility] [address] [place], [place], [id number] Gram Stainon 03-10-2025 GS Reason for Exam: contractions Gram Stain 3+ Gram positive rods 1+ White Blood Cells No Gram negative diplococci Score = 1 Interpretation: 0-3 Normal, 4-6 Intermediate, 7-10 Positive BV Normal [facility] Comment on above: Performed By: #### M 100.3200, M100.1999 ####[facility] [address] [place], [place], [id number] Gram stainOrdered By: Ronda Diehl on 03-10-2025 Microscopic observation Gram stain Nom (Unsp spec) [facility] Laboratory - Chemistry and C hemistry - challengeOrdered By: Edel Diehl on 03-10-2025 Glucose Ql (U) Negative [facility] Laboratory - UrinalysisOrder ed By: Edel Diehl on 03-10-2025 Protein Ql (U) Negative [facility] [employer] Office Visit Reporton 03-10-2025 Sharepoint Application Developer Office Visit Report Normal [facility] Gestational GTT 3HR 100gon 0 03-05-2025 GEST GTT 100gm Normal [facility] Comment on above: Order Comment: [...] 03/05/25 1029 Performed By: #### L 500.4710 ####[facility] [address] [place], [address] Quantitative serum or plasma 3 hour gestational glucose tolerance panelOrdered By: Kiley Jain on 03-05-2025 Glucose tolerance 3 hours gestational panel See comment [facility] Comment on above: FASTING 85 [...] (Unsp spec) [#/Vol] 2.26 10*3/uL 0.83-4.51 [facility] Absolute neutrophil countOrd ered By: Edel Diehl on 02-26-2025 Neutrophils (Bld) [#/Vol] 8.8 10*3/uL High 2.0-7.7 [facility] Automated lymphocyte count a s percentage of total leukocytesOrdered By: Edel Diehl on 02-26-2025 Lymphocytes/100 WBC Auto (Unsp spec) 19.1 % 19-41 [facility] Basophil percentageOrdered B y: Edel Diehl on 02-26-2025 Basophils/100 WBC (Bld) 0.3 % 0-1 [facility] CBC W/Diff, Automatedon 01-30 0-2024 Absolute Lymph 2.26 X10 3/uL Normal 0.83-4.51 [facility] Comment on above: Performed By: #### L 501.0250, L100.0100, L3890.6006, BTS, L509.8002 ####[facility] [address] [place], [address] Absolute Neut 8.8 X10 3/uL High 2.0-7.7 [facility] Comment on above: Performed By: #### L 501.0250, L100.0100, L3890.6006, BTS, L509.8002 ####[facility] [address] [place], [address] Basophils/100 WBC (Bld) 0.3 % Normal 0-1 [facility] Comment on above: Performed By: #### L 501.0250, L100.0100, L3890.6006, BTS, L509.8002 ####[facility] [address] [place], [address] Eosinophils/100 WBC (Bld) 1.0 % Normal 0-5 [facility] Comment on above: Performed By: #### L 501.0250, L100.0100, L3890.6006, BTS, L509.8002 ####[facility] [address] [place], [address] Erythrocyte distribution width (RBC) [Ratio] 13.5 % Normal 11.6-14.6 [facility] Comment on above: Performed By: #### L 501.0250, L100.0100, L3890.6006, BTS, L509.8002 ####[facility] [address] [place], [address] Hematocrit (Bld) [Volume fraction] 37.5 % Normal 37-47 [facility] Comment on above: Performed By: #### L 501.0250, L100.0100, L3890.6006, BTS, L509.8002 ####[facility] [address] [place], [address] Hemoglobin (Bld) [Mass/Vol] 12.7 g/dL Normal 12.0-15.0 [facility] Comment on above: Performed By: #### L 501.0250, L100.0100, L3890.6006, BTS, L509.8002 ####[facility] [address] [place], [address] IG% 0.800 Normal 0.0-0.9 [facility] Comment on above: Result Comment: IG% - Immature Granulocytes (promyelocytes, myelocytes andmetamyelocytes) > 1% indicates that a LEFT SHIFT is Present. Performed By: #### L 501.0250, L100.0100, L3890.6006, BTS, L509.8002 ####[facility] [address] [place], [address] Lymphocytes/100 WBC (Bld) 19.1 % Normal 19-41 [facility] Comment on above: Performed By: #### L 501.0250, L100.0100, L3890.6006, BTS, L509.8002 ####[facility] [address] [place], [address] MCH (RBC) [Entitic mass] 29.7 pg Normal 27.0-32.0 [facility] Comment on above: Performed By: #### L 501.0250, L100.0100, L3890.6006, BTS, L509.8002 ####[facility] [address] [place], [address] MCHC (RBC) [Mass/Vol] 33.9 g/dL Normal 32-36 [facility] Comment on above: Performed By: #### L 501.0250, L100.0100, L3890.6006, BTS, L509.8002 ####[facility] [address] [place], [address] MCV (RBC) [Entitic vol] 87.6 fL Normal 81-99 [facility] Comment on above: Performed By: #### L 501.0250, L100.0100, L3890.6006, BTS, L509.8002 ####[facility] [address] [place], [address] Monocytes/100 WBC (Bld) 4.0 % Normal 0-10 [facility] Comment on above: Performed By: #### L 501.0250, L100.0100, L3890.6006, BTS, L509.8002 ####[facility] [address] [place], [address] Neutrophils/100 WBC (Bld) 74.8 % High 47-70 [facility] Comment on above: Performed By: #### L 501.0250, L100.0100, L3890.6006, BTS, L509.8002 ####[facility] [address] [place], [address] Nucleated RBC (Bld) [#/Vol] 0 10*3/uL Normal 0-5 [facility] Comment on above: Performed By: #### L 501.0250, L100.0100, L3890.6006, BTS, L509.8002 ####[facility] [address] [place], [address] Platelet mean volume (Bld) [Entitic vol] 9.5 fL Normal 6.2-12.0 [facility] Comment on above: Performed By: #### L 501.0250, L100.0100, L3890.6006, BTS, L509.8002 ####[facility] [address] [place], [address] Platelets (Bld) [#/Vol] 300 10*3/uL Normal 150-450 [facility] Comment on above: Performed By: #### L 501.0250, L100.0100, L3890.6006, BTS, L509.8002 ####[facility] [address] [place], [address] RBC (Bld) [#/Vol] 4.28 10*6/uL Normal 4.2-5.4 [facility] Comment on above: Performed By: #### L 501.0250, L100.0100, L3890.6006, BTS, L509.8002 ####[facility] [address] [place], [address] RDW SD 42.8 fl Normal 35.1-43.9 [facility] Comment on above: Performed By: #### L 501.0250, L100.0100, L3890.6006, BTS, L509.8002 ####[facility] [address] [place], [address] WBC (Bld) [#/Vol] 11.8 10*3/uL High 4.4-11.0 [facility] Comment on above: Performed By: #### L 501.0250, L100.0100, L3890.6006, BTS, L509.8002 ####[facility] [address] [place], [address] Eosinophil percentageOrdered By: Edel Diehl on 02-26-2025 Eosinophils/100 WBC (Bld) 1.0 % 0-5 [facility] Erythrocyte distribution wid th ratioOrdered By: Edel Diehl on 02-26-2025 Erythrocyte distribution width (RBC) [Ratio] 13.5 % 11.6-14.6 [facility] Erythrocyte distribution wid th standard deviationOrdered By: Edel Diehl on 02-26-2025 Erythrocyte distribution width (RBC) [Ratio] 42.8 fl 35.1-43.9 [facility] Glucose Challenge Gest 1H 50 trini 02-26-2025 GLU GEST 50g 1H 172 mg/dL High 70-140 [facility] Comment on above: Performed By: #### L 501.0250, L100.0100, L3890.6006, BTS, L509.8002 ####[facility] [address] [place], [address] Glucose measurement at 2 haven rs post-dose gestational glucose tolerance testOrdered By: Edel Diehl on 02-26-2025 Glucose [Mass/Vol] 172 mg/dL High 70-140 [facility] HIVon 02-26-2025 HIV Non-Reactive Normal Nonreactive [facility] Comment on above: Result Comment: Non- ReactiveReactiveRepeatedly reactive samples must be confirmed according [facility] recommended confirmatory algorithms. The subresults foreither HIVAG or AHIV can be used as an aid in the selectionof the confirmation algorithm for reactive samples.Send out specimens with Reactive results to [facility] forconfirmation.Order the HIV antibody detection and differentiation:#[id number] Performed By: #### L 501.0250, L100.0100, L3890.6006, BTS, L509.8002 ####[facility] [address] [place], [place], [id number] Hematocrit Auto (Bld) [Volum e fraction]Ordered By: Edel Diehl on 02-26-2025 Hematocrit (Bld) [Volume fraction] 37.5 % 37-47 [facility] Hemoglobin measurementOrdere d By: Edel Diehl on 02-26-2025 Hemoglobin (Bld) [Mass/Vol] 12.7 g/dL 12.0-15.0 [facility] Immature granulocytes/100 WB C Auto (Bld)Ordered By: Edel Diehl on 02-26-2025 Immature granulocytes/100 WBC (Bld) 0.800 % 0.0-0.9 [facility] Comment on above: IG% - Immature Granu locytes (promyelocytes, myelocytes and metamyelocytes) > 1% indicates that a LEFT SHIFT is Present. Laboratory - Chemistry and C hemistry - challengeOrdered By: Apple Lao on 02-26-2025 Glucose Ql (U) Negative [facility] Laboratory - UrinalysisOrder ed By: Apple Lao on 02-26-2025 Protein Ql (U) Negative [facility] MCV (mean corpuscular volume ) determinationOrdered By: Edel Diehl on 02-26-2025 MCV (RBC) [Entitic vol] 87.6 fL 81-99 [facility] Mean corpuscular hemoglobin (MCH) determinationOrdered By: Edel Diehl on 02-26-2025 MCH (RBC) [Entitic mass] 29.7 pg 27.0-32.0 [facility] Mean corpuscular hemoglobin concentration (MCHC) determinationOrdered By: Edel Diehl on 02-26-2025 MCHC (RBC) [Mass/Vol] 33.9 g/dL 32-36 [facility] Mean platelet volume determi nationOrdered By: Edel Diehl on 02-26-2025 Platelet mean volume (Bld) [Entitic vol] 9.5 fL 6.2-12.0 [facility] Monocyte percentageOrdered B y: Edel Diehl on 02-26-2025 Monocytes/100 WBC (Bld) 4.0 % 0-10 [facility] Neutrophil percentageOrdered By: Edel Diehl on 02-26-2025 Neutrophils/100 WBC (Bld) 74.8 % High 47-70 [facility] No Panel InformationOrdered By: Edel Diehl on 02-26-2025 HIV (1&2) Antibody Non-Reactive Nonreactive [facility] Comment on above: Non-ReactiveReactive Repeatedly reactive samples must be confirmed according to CDC recommended confirmatory algorithms. The subresults for either HIVAG or AHIV can be used as an aid in the selection of the confirmation algorithm for reactive samples.Send out specimens with Reactive results to [facility] for confirmation.Order the HIV antibody detection and differentiation: #[id number] Nucleated red blood cell per centageOrdered By: Edel Diehl on 02-26-2025 Nucleated RBC/100 WBC (Bld) [Ratio] 0 % 0-5 [facility] [employer] Office Visit Reporton 02-26-2025 [employer] Office Visit Report Normal [facility] Platelet countOrdered By: Mickey colenegro Shanita on 02-26-2025 Platelets (Bld) [#/Vol] 300 10*3/uL 150-450 [facility] RBC Auto (Bld) [#/Vol]Ordere d By: Edel Diehl on 02-26-2025 RBC (Bld) [#/Vol] 4.28 10*6/uL 4.2-5.4 [facility] Syphilis Antibodieson 2024 Syphilis Abs Non-Reactive Normal Nonreactive [facility] Comment on above: Performed By: #### L 501.0250, L100.0100, L3890.6006, BTS, L509.8002 ####[facility] [address] [place], [place], [id number] Type AND Screenon 02-26-2025 ABO and Rh group Nom (Bld) Blood group B Rh(D) negative Normal [facility] Comment on above: Order Comment: PN Performed By: #### L 501.0250, L100.0100, L3890.6006, BTS, L509.8002 ####[facility] [address] [place], [place], [id number] White blood cell (WBC) count Ordered By: Edel Diehl on 02-26-2025 WBC (Bld) [#/Vol] 11.8 10*3/uL High 4.4-11.0 [facility] Progress Noteon 02-23-2025 [employer] Standard Machine Authentication Interface Message Text MEDICAL DECISION MAKING: [...] concerns arise Patient was seen in [facility] cardiology clinic today at the request [...] there are questions regarding these findings. Normal [facility] [employer] Office Visit Reporton 01-29-2025 [employer] Office Visit Report Normal [facility] Laboratory - Chemistry and C hemistry - challengeOrdered By: Apple Lao on 01-01-2025 Glucose Ql (U) Negative [facility] Laboratory - UrinalysisOrder ed By: Apple Lao on 01-01-2025 Protein Ql (U) Negative [facility] [employer] Office Visit Reporton 01-01-2025 [employer] Office Visit Report Normal [facility] [employer] Office Visit Reporton 12-03-2024 [employer] Office Visit Report Normal [facility] 12 Lead EKGon 11-10-2024 12 Lead EKG Normal [facility] Absolute lymphocyte countOrd ered By: Ld Fermin on 11-10-2024 Lymphocytes Auto (Unsp spec) [#/Vol] 3.59 10*3/uL 0.83-4.51 [facility] Absolute neutrophil countOrd ered By: Ld Fermin on 11-10-2024 Neutrophils (Bld) [#/Vol] 9.3 10*3/uL High 2.0-7.7 [facility] Automated lymphocyte count a s percentage of total leukocytesOrdered By: Ld Huio on 11-10-2024 Lymphocytes/100 WBC Auto (Unsp spec) 25.8 % 19-41 [facility] Basic Metabolic Profile (BMP )on 11-10-2024 BUN/CRE 8.8 RATIO Low 10-20 [facility] Comment on above: Performed By: #### L 100.0100, L500.2500 ####[facility] [address] [place], [address] CA,Total 9.9 mg/dL Normal 8.5-10.1 [facility] Comment on above: Performed By: #### L 100.0100, L500.2500 ####[facility] [address] [place], [address] Chloride [Moles/Vol] 108 mmol/L High 98-107 [facility] Comment on above: Performed By: #### L 100.0100, L500.2500 ####[facility] [address] [place], [address] CO2 [Moles/Vol] 24.0 mmol/L Normal 21.0-32.0 [facility] Comment on above: Performed By: #### L 100.0100, L500.2500 ####[facility] [address] [place], [address] Creatinine [Mass/Vol] 0.57 mg/dL Normal 0.55-1.02 [facility] Comment on above: Result Comment: The validity of the calculated GFR GFRAA in patients over70 years has not been determined. Clinical correlation isessential. Performed By: #### L 100.0100, L500.2500 ####[facility] [address] [place], [address] ECRCL 167.72 ml/min Normal [facility] Comment on above: Performed By: #### L 100.0100, L500.2500 ####[facility] [address] [place], [address] EST GFR - AA 157 mL/min Normal >60 [facility] Comment on above: Result Comment: Afri can [place] GFR Calc Performed By: #### L 100.0100, L500.2500 ####[facility] [address] [place], [address] GAP 8 Normal 5-15 [facility] Comment on above: Performed By: #### L 100.0100, L500.2500 ####[facility] [address] [place], [address] GFR/1.73 sq M.predicted among non-blacks MDRD (S/P/Bld) [Vol rate/Area] 129 mL/min/{1.73_m2} Normal >60 [facility] Comment on above: Result Comment: Non- GFR Calc Performed By: #### L 100.0100, L500.2500 ####[facility] [address] [place], [address] Glucose [Mass/Vol] 86 mg/dL Normal 74-106 [facility] Comment on above: Performed By: #### L 100.0100, L500.2500 ####[facility] [address] [place], [address] Potassium [Moles/Vol] 3.4 mmol/L Low 3.5-5.1 [facility] Comment on above: Performed By: #### L 100.0100, L500.2500 ####[facility] [address] [place], [address] Sodium [Moles/Vol] 140 mmol/L Normal 136-145 [facility] Comment on above: Performed By: #### L 100.0100, L500.2500 ####[facility] [address] [place], [address] Urea nitrogen [Mass/Vol] 5 mg/dL Low 7-18 [facility] Comment on above: Performed By: #### L 100.0100, L500.2500 ####[facility] [address] [place], [address] Basophil percentageOrdered B y: Ld Fermin on 11-10-2024 Basophils/100 WBC (Bld) 0.5 % 0-1 [facility] Blood urea nitrogen (BUN)/cr eatinine ratioOrdered By: Ld Fermin on 11-10-2024 Urea nitrogen/Creatinine [Mass ratio] 8.8 mg/mg Low 10-20 [facility] CBC W/Diff, Automatedon - Absolute Lymph 3.59 X10 3/uL Normal 0.83-4.51 [facility] Comment on above: Performed By: #### L 100.0100, L500.2500 ####[facility] [address] [place], [address] Absolute Neut 9.3 X10 3/uL High 2.0-7.7 [facility] Comment on above: Performed By: #### L 100.0100, L500.2500 ####[facility] [address] [place], [address] Basophils/100 WBC (Bld) 0.5 % Normal 0-1 [facility] Comment on above: Performed By: #### L 100.0100, L500.2500 ####[facility] [address] [place], [address] Eosinophils/100 WBC (Bld) 1.2 % Normal 0-5 [facility] Comment on above: Performed By: #### L 100.0100, L500.2500 ####[facility] [address] [place], [address] Erythrocyte distribution width (RBC) [Ratio] 12.8 % Normal 11.6-14.6 [facility] Comment on above: Performed By: #### L 100.0100, L500.2500 ####[facility] [address] [place], [address] Hematocrit (Bld) [Volume fraction] 43.6 % Normal 37-47 [facility] Comment on above: Performed By: #### L 100.0100, L500.2500 ####[facility] [address] [place], [address] Hemoglobin (Bld) [Mass/Vol] 14.8 g/dL Normal 12.0-15.0 [facility] Comment on above: Performed By: #### L 100.0100, L500.2500 ####[facility] [address] [place], [address] IG% 0.600 Normal 0.0-0.9 [facility] Comment on above: Result Comment: IG% - Immature Granulocytes (promyelocytes, myelocytes andmetamyelocytes) > 1% indicates that a LEFT SHIFT is Present. Performed By: #### L 100.0100, L500.2500 ####[facility] [address] [place], [address] Lymphocytes/100 WBC (Bld) 25.8 % Normal 19-41 [facility] Comment on above: Performed By: #### L 100.0100, L500.2500 ####[facility] [address] [place], [address] MCH (RBC) [Entitic mass] 28.8 pg Normal 27.0-32.0 [facility] Comment on above: Performed By: #### L 100.0100, L500.2500 ####[facility] [address] [place], [address] MCHC (RBC) [Mass/Vol] 33.9 g/dL Normal 32-36 [facility] Comment on above: Performed By: #### L 100.0100, L500.2500 ####[facility] [address] [place], [address] MCV (RBC) [Entitic vol] 84.8 fL Normal 81-99 [facility] Comment on above: Performed By: #### L 100.0100, L500.2500 ####[facility] [address] [place], [address] Monocytes/100 WBC (Bld) 5.1 % Normal 0-10 [facility] Comment on above: Performed By: #### L 100.0100, L500.2500 ####[facility] [address] [place], [address] Neutrophils/100 WBC (Bld) 66.8 % Normal 47-70 [facility] Comment on above: Performed By: #### L 100.0100, L500.2500 ####[facility] [address] [place], [address] Nucleated RBC (Bld) [#/Vol] 0 10*3/uL Normal 0-5 [facility] Comment on above: Performed By: #### L 100.0100, L500.2500 ####[facility] [address] [place], [address] Platelet mean volume (Bld) [Entitic vol] 9.3 fL Normal 6.2-12.0 [facility] Comment on above: Performed By: #### L 100.0100, L500.2500 ####[facility] [address] [place], [address] Platelets (Bld) [#/Vol] 373 10*3/uL Normal 150-450 [facility] Comment on above: Performed By: #### L 100.0100, L500.2500 ####[facility] [address] [place], [address] RBC (Bld) [#/Vol] 5.14 10*6/uL Normal 4.2-5.4 [facility] Comment on above: Performed By: #### L 100.0100, L500.2500 ####[facility] [address] [place], [address] RDW SD 39.5 fl Normal 35.1-43.9 [facility] Comment on above: Performed By: #### L 100.0100, L500.2500 ####[facility] [address] [place], [address] WBC (Bld) [#/Vol] 13.9 10*3/uL High 4.4-11.0 [facility] Comment on above: Performed By: #### L 100.0100, L500.2500 ####[facility] [address] [place], [address] Carbon dioxide measurementOr dered By: Ld Fermin on 11-10-2024 CO2 [Moles/Vol] 24.0 mmol/L 21.0-32.0 [facility] Chloride measurementOrdered By: Ld Fermin on 11-10-2024 Chloride [Moles/Vol] 108 mmol/L High 98-107 [facility] [place] D-Dimer Quantitative (DVT/PE )on 11-10-2024 D-DIMER QUANT < 0.27 Low 0.27-0.49 [facility] Comment on above: Result Comment: NORM AL D-Dimer level (<0.50) indicates no DVT or PE. Performed By: #### L 300.8000 ####[facility] [address] [place], [address] Emergency Department Summary on 11-10-2024 Emergency Department Summary Normal [facility] Eosinophil percentageOrdered By: Ld Fermin on 11-10-2024 Eosinophils/100 WBC (Bld) 1.2 % 0-5 [facility] Erythrocyte distribution wid th ratioOrdered By: Ldondina Fermin on 11-10-2024 Erythrocyte distribution width (RBC) [Ratio] 12.8 % 11.6-14.6 [facility] Erythrocyte distribution wid th standard deviationOrdered By: [facility] Erythrocyte distribution width (RBC) [Ratio] 39.5 fl 35.1-43.9 [facility] Glomerular filtration rate ( GFR) estimationOrdered By: Ldondina Fermin on 11-10-2024 GFR/1.73 sq M.predicted among non-blacks MDRD (S/P/Bld) [Vol rate/Area] 129 mL/min/{1.73_m2} >60 [facility] Comment on above: Non- GFR Calc Glucose measurementOrdered B y: Ldondina Fermin on 11-10-2024 Glucose [Mass/Vol] 86 mg/dL 74-106 [facility] Hematocrit Auto (Bld) [Volum e fraction]Ordered By: [facility] 11-10-2024 Hematocrit (Bld) [Volume fraction] 43.6 % 37-47 [facility] Hemoglobin measurementOrdere d By: [facility] Fermin on 11-10-2024 Hemoglobin (Bld) [Mass/Vol] 14.8 g/dL 12.0-15.0 [facility] Immature granulocytes/100 WB C Auto (Bld)Ordered By: [facility] on 11-10-2024 Immature granulocytes/100 WBC (Bld) 0.600 % 0.0-0.9 [facility] Comment on above: IG% - Immature Granu locytes (promyelocytes, myelocytes and metamyelocytes) > 1% indicates that a LEFT SHIFT is Present. MCV (mean corpuscular volume ) determinationOrdered By: [facility] on 11-10-2024 MCV (RBC) [Entitic vol] 84.8 fL 81-99 [facility] Mean corpuscular hemoglobin (MCH) determinationOrdered By: [facility] 11-10-2024 MCH (RBC) [Entitic mass] 28.8 pg 27.0-32.0 [facility] Mean corpuscular hemoglobin concentration (MCHC) determinationOrdered By: [facility] 11-10-2024 MCHC (RBC) [Mass/Vol] 33.9 g/dL 32-36 [facility] Mean platelet volume determi nationOrdered By: Ld Fermin on 11-10-2024 Platelet mean volume (Bld) [Entitic vol] 9.3 fL 6.2-12.0 [facility] Monocyte percentageOrdered B y: Ld Fermin on 11-10-2024 Monocytes/100 WBC (Bld) 5.1 % 0-10 [facility] Neutrophil percentageOrdered By: Ld Fermin on 11-10-2024 Neutrophils/100 WBC (Bld) 66.8 % 47-70 [facility] Nucleated red blood cell per centageOrdered By: Ldondina Fermin on 11-10-2024 Nucleated RBC/100 WBC (Bld) [Ratio] 0 % 0-5 [facility] Platelet countOrdered By: Pedro Fermin on 11-10-2024 Platelets (Bld) [#/Vol] 373 10*3/uL 150-450 [facility] Potassium measurementOrdered By: Ld Fermin on 11-10-2024 Potassium [Moles/Vol] 3.4 mmol/L Low 3.5-5.1 [facility] RBC Auto (Bld) [#/Vol]Ordere d By: Ld Fermin on 11-10-2024 RBC (Bld) [#/Vol] 5.14 10*6/uL 4.2-5.4 [facility] Serum anion gap measurementO rdered By: Ld Fermin on 11-10-2024 Anion gap [Moles/Vol] 8 mmol/L 5-15 [facility] Serum or plasma calcium kenisha urement (mass/volume)Ordered By: Ld Fermin on 11-10-2024 Calcium [Mass/Vol] 9.9 mg/dL 8.5-10.1 [facility] Serum or plasma creatinine m easurement (mass/volume)Ordered By: Ldondina Fermin on 11-10-2024 Creatinine [Mass/Vol] 0.57 mg/dL 0.55-1.02 [facility] Comment on above: The validity of the calculated GFR & GFRAA in patients over 70 years has not been determined. Clinical correlation is essential. Serum or plasma urea nitroge n measurement (mass/volume)Ordered By: Ld Fermin on 11-10-2024 Urea nitrogen [Mass/Vol] 5 mg/dL Low 7-18 [facility] Sodium levelOrdered By: Ld Fermin on 11-10-2024 Sodium [Moles/Vol] 140 mmol/L 136-145 [facility] White blood cell (WBC) count Ordered By: Ld Fremin on 11-10-2024 WBC (Bld) [#/Vol] 13.9 10*3/uL High 4.4-11.0 [facility] Laboratory - Chemistry and C hemistry - challengeOrdered By: Edel Diehl on 11-05-2024 Glucose Ql (U) Negative [facility] Laboratory - UrinalysisOrder ed By: Edel Diehl on 11-05-2024 Protein Ql (U) Negative [facility] [employer] Office Visit Reporton 11-05-2024 [employer] Office Visit Report Normal [facility] HIV - WCHon 10-13-2024 HIV Non-Reactive Normal Nonreactive [facility] Comment on above: Order Comment: Reaso n for Exam: Performed By: #### L 3410.9999, L501.9985, BTS, L3890.6100, L501.9520, L3890.6005, L3890.6300, L506.0400, L100.0100, L509.4005, L509.8000 ####[facility] [address] [place], [address] L3410.9999on 10-13-2024 [facility] Misc. COMMENT Normal . [facility] Comment on above: Order Comment: [id number] 4TSH RECEPTOR AB SERUM RF Result Comment: Test Ordered: [id number] Thyrotropin Receptor Ab, SerumThyrotropin Receptor Ab, Serum <1.10 IU/L Reference Range: 0.00-1.75Performed at: - [facility] [address] [id number] Director: Sue Martinez MD, Phone: [phone] at: [facility] CenterFsdadw[address] [place], [place] [id number] Director: Huan Kuhn PhD, Phone: [phone] Performed By: #### L 3410.9999, L501.9985, BTS, L3890.6100, L501.9520, L3890.6005, L3890.6300, L506.0400, L100.0100, L509.4005, L509.8000 ####[facility] [address] [place], [address] Chlamydia/GC CONCHITA aptimaon CHLAMY,NUC ACID Negative Normal Negative [facility] Comment on above: Performed By: #### L 7000.1800, M100.2200, L505.5000 ####[facility] [address] [place], [address] GC BY NUC ACID Negative Normal Negative [facility] Comment on above: Result Comment: Perf ormed at: =G - [facility] [address] [id number] Director: Ary Grider MD, Phone: [phone] Performed By: #### L 7000.1800, M100.2200, L505.5000 ####[facility] [address] [place], [address] Hepatitis B Surface Antigeno n 10-12-2024 HEP B Surf Ag Non-Reactive Normal Nonreactive [facility] Comment on above: Order Comment: Reaso n for Exam: Performed By: #### L 3410.9999, L501.9985, BTS, L3890.6100, L501.9520, L3890.6005, L3890.6300, L506.0400, L100.0100, L509.4005, L509.8000 ####[facility] [address] [place], [address] Hepatitis C Antibodyon 10-12 Hepatitis C AB Non-Reactive Normal Nonreactive [facility] Comment on above: Order Comment: Reaso n for Exam: Result Comment: Non Reactive: < 0.8 Equivocal: >/= 0.8 to < 1.0 Reactive: >/= 1.0The CDC requires that a reactive/equivocal HCV antibodyresult be sent out for confirmation. HCV Quant by PCRtesting. Performed By: #### L 3410.9999, L501.9985, BTS, L3890.6100, L501.9520, L3890.6005, L3890.6300, L506.0400, L100.0100, L509.4005, L509.8000 ####[facility] [address] [place], [place], [id number] L509.8000on 10-12-2024 Syphilis Abs Non-Reactive Normal [facility] Comment on above: Order Comment: Reaso n for Exam: Performed By: #### L 3410.9999, L501.9985, BTS, L3890.6100, L501.9520, L3890.6005, L3890.6300, L506.0400, L100.0100, L509.4005, L509.8000 ####[facility] [address] [place], [address] Rubella IgGon 10-12-2024 Rubella IgG Reactive Normal Nonreactive [facility] Comment on above: Order Comment: Reaso n for Exam: Result Comment: Anti body Results Interpretation of Immune Status Non Reactive Presumed Non-Immune Equivocal Equivocal Reactive Presumed Immune Performed By: #### L 3410.9999, L501.9985, BTS, L3890.6100, L501.9520, L3890.6005, L3890.6300, L506.0400, L100.0100, L509.4005, L509.8000 ####[facility] [address] [place], [place], [id number] Urine Cultureon 10-12-2024 [facility] Mixed Gram Positive Organisms [place] Count 25,000-50,000 MIXC Mixed contaminants. Submit a new specimen if indicated. Normal [facility] Comment on above: Performed By: #### L 7000.1800, M100.2200, L505.5000 ####[facility] [address] [place], [address] CBC W/Diff, Automatedon 01- 0-2024 Absolute Lymph 2.85 X10 3/uL Normal 0.83-4.51 [facility] Comment on above: Performed By: #### L 3410.9999, L501.9985, BTS, L3890.6100, L501.9520, L3890.6005, L3890.6300, L506.0400, L100.0100, L509.4005, L509.8000 ####[facility] [address] [place], [address] Absolute Neut 10.8 X10 3/uL High 2.0-7.7 [facility] Comment on above: Performed By: #### L 3410.9999, L501.9985, BTS, L3890.6100, L501.9520, L3890.6005, L3890.6300, L506.0400, L100.0100, L509.4005, L509.8000 ####[facility] [address] [place], [address] Basophils/100 WBC (Bld) 0.5 % Normal 0-1 [facility] Comment on above: Performed By: #### L 3410.9999, L501.9985, BTS, L3890.6100, L501.9520, L3890.6005, L3890.6300, L506.0400, L100.0100, L509.4005, L509.8000 ####[facility] [address] [place], [address] Eosinophils/100 WBC (Bld) 1.4 % Normal 0-5 [facility] Comment on above: Performed By: #### L 3410.9999, L501.9985, BTS, L3890.6100, L501.9520, L3890.6005, L3890.6300, L506.0400, L100.0100, L509.4005, L509.8000 ####[facility] [address] [place], [place], [phone] Erythrocyte distribution width (RBC) [Ratio] 12.8 % Normal 11.6-14.6 [facility] Comment on above: Performed By: #### L 3410.9999, L501.9985, BTS, L3890.6100, L501.9520, L3890.6005, L3890.6300, L506.0400, L100.0100, L509.4005, L509.8000 ####[facility] [address] [place], [address](890) Hematocrit (Bld) [Volume fraction] 41.2 % Normal 37-47 [facility] Comment on above: Performed By: #### L 3410.9999, L501.9985, BTS, L3890.6100, L501.9520, L3890.6005, L3890.6300, L506.0400, L100.0100, L509.4005, L509.8000 ####[facility] [address] [place], [place], [phone](532) Hemoglobin (Bld) [Mass/Vol] 14.1 g/dL Normal 12.0-15.0 [facility] Comment on above: Performed By: #### L 3410.9999, L501.9985, BTS, L3890.6100, L501.9520, L3890.6005, L3890.6300, L506.0400, L100.0100, L509.4005, L509.8000 ####[facility] [address] [place], [place], [phone]) IG% 0.500 Normal 0.0-0.9 [facility] Comment on above: Result Comment: IG% - Immature Granulocytes (promyelocytes, myelocytes andmetamyelocytes) > 1% indicates that a LEFT SHIFT is Present. Performed By: #### L 3410.9999, L501.9985, BTS, L3890.6100, L501.9520, L3890.6005, L3890.6300, L506.0400, L100.0100, L509.4005, L509.8000 ####[facility] [address] [place], [address] Lymphocytes/100 WBC (Bld) 19.2 % Normal 19-41 [facility] Comment on above: Performed By: #### L 3410.9999, L501.9985, BTS, L3890.6100, L501.9520, L3890.6005, L3890.6300, L506.0400, L100.0100, L509.4005, L509.8000 ####[facility] [address] [facility] [place], [address] MCH (RBC) [Entitic mass] 28.8 pg Normal 27.0-32.0 [facility] Comment on above: Performed By: #### L 3410.9999, L501.9985, BTS, L3890.6100, L501.9520, L3890.6005, L3890.6300, L506.0400, L100.0100, L509.4005, L509.8000 ####[facility] [address] [place], [address] MCHC (RBC) [Mass/Vol] 34.2 g/dL Normal 32-36 [facility] Comment on above: Performed By: #### L 3410.9999, L501.9985, BTS, L3890.6100, L501.9520, L3890.6005, L3890.6300, L506.0400, L100.0100, L509.4005, L509.8000 ####[facility] [address] [place], [address] MCV (RBC) [Entitic vol] 84.1 fL Normal 81-99 [facility] Comment on above: Performed By: #### L 3410.9999, L501.9985, BTS, L3890.6100, L501.9520, L3890.6005, L3890.6300, L506.0400, L100.0100, L509.4005, L509.8000 ####[facility] [address] [place], [address] Monocytes/100 WBC (Bld) 5.2 % Normal 0-10 [facility] Comment on above: Performed By: #### L 3410.9999, L501.9985, BTS, L3890.6100, L501.9520, L3890.6005, L3890.6300, L506.0400, L100.0100, L509.4005, L509.8000 ####[facility] [address] [place], [address] Neutrophils/100 WBC (Bld) 73.2 % High 47-70 [facility] Comment on above: Performed By: #### L 3410.9999, L501.9985, BTS, L3890.6100, L501.9520, L3890.6005, L3890.6300, L506.0400, L100.0100, L509.4005, L509.8000 ####[facility] [address] [place], [address] Nucleated RBC (Bld) [#/Vol] 0 10*3/uL Normal 0-5 [facility] Comment on above: Performed By: #### L 3410.9999, L501.9985, BTS, L3890.6100, L501.9520, L3890.6005, L3890.6300, L506.0400, L100.0100, L509.4005, L509.8000 ####[facility] [address] [place], [address] Platelet mean volume (Bld) [Entitic vol] 9.1 fL Normal 6.2-12.0 [facility] Comment on above: Performed By: #### L 3410.9999, L501.9985, BTS, L3890.6100, L501.9520, L3890.6005, L3890.6300, L506.0400, L100.0100, L509.4005, L509.8000 ####[facility] [address] [place], [address] Platelets (Bld) [#/Vol] 417 10*3/uL Normal 150-450 [facility] Comment on above: Performed By: #### L 3410.9999, L501.9985, BTS, L3890.6100, L501.9520, L3890.6005, L3890.6300, L506.0400, L100.0100, L509.4005, L509.8000 ####[facility] [address] [place], [address] RBC (Bld) [#/Vol] 4.90 10*6/uL Normal 4.2-5.4 [facility] Comment on above: Performed By: #### L 3410.9999, L501.9985, BTS, L3890.6100, L501.9520, L3890.6005, L3890.6300, L506.0400, L100.0100, L509.4005, L509.8000 ####[facility] [address] [place], [address] RDW SD 39.1 fl Normal 35.1-43.9 [facility] Comment on above: Performed By: #### L 3410.9999, L501.9985, BTS, L3890.6100, L501.9520, L3890.6005, L3890.6300, L506.0400, L100.0100, L509.4005, L509.8000 ####[facility] [address] [place], [place], [phone] WBC (Bld) [#/Vol] 14.8 10*3/uL High 4.4-11.0 [facility] Comment on above: Performed By: #### L 3410.9999, L501.9985, BTS, L3890.6100, L501.9520, L3890.6005, L3890.6300, L506.0400, L100.0100, L509.4005, L509.8000 ####[facility] [address] [place], [place], [id number] Hemoglobin A1con 10-09-2024 HbA1c (Bld) [Mass fraction] 5.2 % Normal 3.8-5.6 [facility] Comment on above: Result Comment: Norm al < 5.7 % Prediabetic 5.7 - 6.4 % Diabetic >or= 6.5 % Please note range changes. Performed By: #### L 3410.9999, L501.9985, BTS, L3890.6100, L501.9520, L3890.6005, L3890.6300, L506.0400, L100.0100, L509.4005, L509.8000 ####[facility] [address] [place], [place], [phone] [employer] Office Visit Reporton 10-09-2024 [employer] Office Visit Report Normal [facility] T4 Free Directon 10-09-2024 T4 FREE DIRECT 1.29 ng/dL Normal 0.76-1.46 [facility] Comment on above: Performed By: #### L 3410.9999, L501.9985, BTS, L3890.6100, L501.9520, L3890.6005, L3890.6300, L506.0400, L100.0100, L509.4005, L509.8000 ####[facility] [address] [place], [address] Thyroid Stim Hormone (TSH)on 10-09-2024 TSH 1.180 uIU/mL Normal 0.358-3.740 [facility] Comment on above: Performed By: #### L 3410.9999, L501.9985, BTS, L3890.6100, L501.9520, L3890.6005, L3890.6300, L506.0400, L100.0100, L509.4005, L509.8000 ####[facility] [address] [place], [address] Type AND Screenon 10-09-2024 Ab SCREEN GEL Negative Normal [facility] Comment on above: Order Comment: PN Performed By: #### L 3410.9999, L501.9985, BTS, L3890.6100, L501.9520, L3890.6005, L3890.6300, L506.0400, L100.0100, L509.4005, L509.8000 ####[facility] [address] [place], [address] Urine Drug Screen (VISTA)on 10-09-2024 AMPHETAMINES Negative Normal <1000 ng/mL [facility] Comment on above: Order Comment: UNK Performed By: #### L 7000.1800, M100.2200, L505.5000 ####[facility] [address] [place], [address] BARBITIURATES Negative Normal < 200 ng/mL [facility] Comment on above: Order Comment: UNK Performed By: #### L 7000.1800, M100.2200, L505.5000 ####[facility] [address] [place], [address] BENZODIAZIPINE Negative Normal < 200 ng/mL [facility] Comment on above: Order Comment: UNK Performed By: #### L 7000.1800, M100.2200, L505.5000 ####[facility] [address] [place], [address] COCAINE Negative Normal < 300 ng/mL [facility] Comment on above: Order Comment: UNK Performed By: #### L 7000.1800, M100.2200, L505.5000 ####[facility] [address] [place], [address] ECSTACY Negative Normal < 500 ng/mL [facility] Comment on above: Order Comment: UNK Performed By: #### L 7000.1800, M100.2200, L505.5000 ####[facility] [address] [place], [address] METHADONE Negative Normal < 300 ng/mL [facility] Comment on above: Order Comment: UNK Performed By: #### L 7000.1800, M100.2200, L505.5000 ####[facility] [address] [place], [address] OPIATES Negative Normal < 300 ng/mL [facility] Comment on above: Order Comment: UNK Performed By: #### L 7000.1800, M100.2200, L505.5000 ####[facility] [address] [place], [address] PCP Negative Normal < 25 ng/mL [facility] Comment on above: Order Comment: UNK Performed By: #### L 7000.1800, M100.2200, L505.5000 ####[facility] [address] [place], [address] THC Negative Normal < 50 ng/mL [facility] Comment on above: Order Comment: UNK Performed By: #### L 7000.1800, M100.2200, L505.5000 ####[facility] [address] [place], [address] VISTA UDS PH 6 Normal [facility] Comment on above: Order Comment: UNK Performed By: #### L 7000.1800, M100.2200, L505.5000 ####[facility] [address] [place], [address] Choriogonadotropin.beta subu niton 10-02-2024 [place] [address] m[IU]/mL High <5 U [facility] Comment on above: Order Comment: Total HCG measurement is performed using the [employer] Access Immunoassay which detects intact HCG and free beta HCG subunit. This test is not indicated for use as a tumor marker. HCG testing is performed using a different test methodology at [facility] than other [facility]. Direct result comparison should only be made [...] By: #### 3 4549-6 #### DWAYNE Nair ([id number]) [facility] ([facility]) [address] [place] [address] Estradiolon 10-02-2024 E2 [Mass/Vol] 506 pg/mL Normal [facility] Comment on above: Order Comment: REF V ALUESFOLLICULAR PHASE 20-144MID CYCLE 64-357LUTEAL PHASE 56-214POSTMENOPAUSE < 32PREPUBERTY < 20FEMALE 10-18Y 8-110MALE 10-18Y < 20ADULT MALE < 40 Performed By: #### 3 4549-6 #### DWAYNE Nair ([id number]) [facility] ([facility]) [address] [place] [address] Progesteroneon 10-02-2024 Progesterone [Mass/Vol] 26.5 ng/mL Normal [facility] Comment on above: Result Comment: Ref Values Male <0.3- 1.2 Follicular Phase <0.3- 1.4 Luteal Phase 3.3-25.6 Mid-Luteal Phase 4.4-28.0 Postmenopausal <0.3- 0.7 Females: 1st Trimester 11.2- 90.0 2nd Trimester 25.6- 89.4 3RD Trimester 48.4-422.5 Patients receiving DHEA-S supplements may show false elevation of progesterone for results near 1.0 ng/mL. Contact laboratory at [phone] if alternative testing is needed. Performed By: #### 3 4549-6 #### DWAYNE Nair ([id number]) [facility] ([facility]) [address] [place] [address] US PELVIS OB TRANSABDOMINAL W TRANSVAGINAL UP TO 1ST TRIMESTERon 10-02-2024 US PELVIS OB TRANSABDOMINAL W TRANSVAGINAL UP TO 1ST TRIMESTER Interpreted By: Dyllan De Jesus, STUDY: US PELVIS OB TRANSABDOMINAL W TRANSVAGINAL UP TO 1ST TRIMESTER; 10/02/2024 9:55 am INDICATION: Signs/Symptoms:. COMPARISON: None. ACCESSION NUMBER(S): [id number] ORDERING CLINICIAN: LEVON BRAXTON TECHNIQUE: Multiple grayscale [...] De Jesus 10/02/2024 11:52 AM Dictation workstation: [id number] [facility] US Pelvis transvaginalon 1. Single live intrauterine . 2. Estimated gestational age: 6 weeks 2 days +/-3 days. MACRO: None Signed by: Dyllan De Jesus 10/02/2024 11:52 AM Dictation workstation: [id number] [facility] Interpreted By: Dyllan Ferrara, STUDY: US PELVIS OB TRANSABDOMINAL W TRANSVAGINAL UP TO 1ST TRIMESTER; 10/02/2024 9:55 am INDICATION: Signs/Symptoms:. COMPARISON: None. ACCESSION NUMBER(S): [id number] ORDERING CLINICIAN: LEVON BRAXTON TECHNIQUE: Multiple grayscale [...] am INDICATION: Signs/Symptoms:. COMPARISON: None. ACCESSION NUMBER(S): [id number] ORDERING CLINICIAN: LEVON BRAXTON TECHNIQUE: Multiple grayscale [...] De Jesus 10/02/2024 11:52 AM Dictation workstation: [id number] [facility] Work Phone: Radiology Study observation (narrative) [facility] Work Phone: US Pelvis transvaginalOrdere d By: Dyllan De Jesus on 10-02-2024 [facility] Work Phone: Choriogonadotropin.beta subu niton 09-25-2024 [place] [address] m[IU]/mL High <5 U [facility] Comment on above: Order Comment: Needs to go with a stat contact representative Total HCG measurement is performed using the [employer] Access Immunoassay which detects intact HCG and free beta HCG subunit. This test is not indicated for use as a tumor marker. HCG testing is performed using a different test methodology at [facility] than other [facility]. Direct result comparison should only be made [...] By: #### 3 4549-6 #### DWAYNE Nair ([id number]) [facility] ([facility]) [address] [place] [address] Estradiolon 09-25-2024 E2 [Mass/Vol] 423 pg/mL Normal [facility] Comment on above: Order Comment: Needs to go with a stat courierREF VALUESFOLLICULAR PHASE 20-144MID CYCLE 64-357LUTEAL PHASE 56-214POSTMENOPAUSE < 32PREPUBERTY < 20FEMALE 10-18Y 8-110MALE 10-18Y < 20ADULT MALE < 40 Performed By: #### 3 4549-6 #### DWAYNE Nair ([id number]) [facility] ([facility]) [address] [place] [address] Progesteroneon 09-25-2024 Progesterone [Mass/Vol] 37.3 ng/mL Normal [facility] Comment on above: Order Comment: Needs to go with a stat contact representative Result Comment: Ref Values Male <0.3- 1.2 Follicular Phase <0.3- 1.4 Luteal Phase 3.3-25.6 Mid-Luteal Phase 4.4-28.0 Postmenopausal <0.3- 0.7 Females: 1st Trimester 11.2- 90.0 2nd Trimester 25.6- 89.4 3RD Trimester 48.4-422.5 Patients receiving DHEA-S supplements may show false elevation of progesterone for results near 1.0 ng/mL. Contact laboratory at [phone] if alternative testing is needed. Performed By: #### 3 4549-6 #### DWAYNE Nair ([id number]) [facility] ([facility]) [address] [place] [address] US PELVIS OB TRANSABDOMINAL W TRANSVAGINAL UP TO 1ST TRIMESTERon 09-25-2024 US PELVIS OB TRANSABDOMINAL W TRANSVAGINAL UP TO 1ST TRIMESTER Interpreted By: Dyllan De Jesus, STUDY: US PELVIS OB TRANSABDOMINAL W TRANSVAGINAL UP TO 1ST TRIMESTER; 09/25/2024 9:44 am INDICATION: Signs/Symptoms:POSITIVE TEST. COMPARISON: None. ACCESSION NUMBER(S): [id number] ORDERING CLINICIAN: LEVON BRAXTON TECHNIQUE: Multiple grayscale [...] De Jesus 09/25/2024 10:40 AM Dictation workstation: [id number] [facility] US Pelvis transvaginalon 1. Single intrauteri ne [...] De Jesus 09/25/2024 10:40 AM Dictation workstation: [id number] Interpreted By: Dyllan Ferrara, STUDY: US PELVIS OB TRANSABDOMINAL W TRANSVAGINAL UP TO 1ST TRIMESTER; 09/25/2024 9:44 am INDICATION: Signs/Symptoms:POSITIVE TEST. COMPARISON: None. ACCESSION NUMBER(S): [id number] ORDERING CLINICIAN: LEVON BRAXTON TECHNIQUE: Multiple grayscale [...] INDICATION: Signs/Symptoms:POSITIVE TEST. COMPARISON: None. ACCESSION NUMBER(S): [id number] ORDERING CLINICIAN: LEVON BRAXTON TECHNIQUE: Multiple grayscale [...] De Jesus 09/25/2024 10:40 AM Dictation workstation: [id number] [facility] Work Phone: Radiology Study observation (narrative) [facility] Work Phone: US Pelvis transvaginalOrdere d By: Dyllan De Jesus on 09-25-2024 [facility] Work Phone: Choriogonadotropin.beta subu niton 09-15-2024 HCG.beta subunit Qn 889 m[IU]/mL High <5 [facility] Comment on above: Order Comment: Stat, send with contact representative Total HCG measurement is performed using the [employer] Access Immunoassay which detects intact HCG and free beta HCG subunit. This test is not indicated for use as a tumor marker. HCG testing is performed using a different test methodology at [facility] than other [facility]. Direct result comparison should only be made [...] By: #### 3 4549-6 #### DWAYNE Nair ([id number]) [facility] ([facility]) [address] [place] [address] Estradiolon 09-15-2024 E2 [Mass/Vol] 492 pg/mL Normal [facility] Comment on above: Order Comment: Stat, send with courierREF VALUESFOLLICULAR PHASE 20-144MID CYCLE 64-357LUTEAL PHASE 56-214POSTMENOPAUSE < 32PREPUBERTY < 20FEMALE 10-18Y 8-110MALE 10-18Y < 20ADULT MALE < 40 Performed By: #### 3 4549-6 #### DWAYNE Nair ([id number]) [facility] ([facility]) [address] [place] [address] Progesteroneon 09-15-2024 Progesterone [Mass/Vol] 31.2 ng/mL [facility] Comment on above: Order Comment: Stat, send with contact representative Result Comment: Ref Values Male <0.3- 1.2 Follicular Phase <0.3- 1.4 Luteal Phase 3.3-25.6 Mid-Luteal Phase 4.4-28.0 Postmenopausal <0.3- 0.7 Females: 1st Trimester 11.2- 90.0 2nd Trimester 25.6- 89.4 3RD Trimester 48.4-422.5 Patients receiving DHEA-S supplements may show false elevation of progesterone for results near 1.0 ng/mL. Contact laboratory at [phone] if alternative testing is needed. Performed By: #### 3 4549-6 #### DWAYNE Nair ([id number]) [facility] ([facility]) [address] [place] [address] Choriogonadotropin.beta subu niton 09-11-2024 HCG.beta subunit Qn 195 m[IU]/mL High <5 [facility] Comment on above: Order Comment: REF [...] By: #### 2 243-4 #### DWAYNE Nair ([id number]) [facility] ([facility]) [address] [place] [address] Estradiolon 09-11-2024 E2 [Mass/Vol] 347 pg/mL Normal [facility] Comment on above: Order Comment: REF V ALUES FOLLICULAR PHASE 20-144 MID CYCLE 64-357 LUTEAL PHASE 56-214 POSTMENOPAUSE < 32 PREPUBERTY < 20 FEMALE 10-18Y 8-110 MALE 10-18Y < 20 ADULT MALE < 40 Performed By: #### 2 243-4 #### DWAYNE Nair ([id number]) [facility] ([facility]) [address] [place] [address] Progesteroneon 09-11-2024 Progesterone [Mass/Vol] 43.6 ng/mL Normal [facility] Comment on above: Order Comment: Send with stat contact representative Result Comment: Ref Values Male <0.3- 1.2 Follicular Phase <0.3- 1.4 Luteal Phase 3.3-25.6 Mid-Luteal Phase 4.4-28.0 Postmenopausal <0.3- 0.7 Females: 1st Trimester 11.2- 90.0 2nd Trimester 25.6- 89.4 3RD Trimester 48.4-422.5 Patients receiving DHEA-S supplements may show false elevation of progesterone for results near 1.0 ng/mL. Contact laboratory at [phone] if alternative testing is needed. Performed By: #### [id number] #### DWAYNE Nair ([id number]) [facility] ([facility]) [address] [place] [id number] Thyrotropinon 09-11-2024 TSH Qn 2.28 m[IU]/L Normal 0.44-3.98 [facility] Comment on above: Order Comment: REF V ALUES FOLLICULAR PHASE 20-144 MID CYCLE 64-357 LUTEAL PHASE 56-214 POSTMENOPAUSE < 32 PREPUBERTY < 20 FEMALE 10-18Y 8-110 MALE 10-18Y < 20 ADULT MALE < 40 Performed By: #### 2 243-4 #### DWAYNE Nair ([id number]) [facility] ([facility]) [address] [place] [address] 28280 Choriogonadotropin.beta subu niton 09-09-2024 HCG.beta subunit Qn 101 m[IU]/mL High <5 [facility] Comment on above: Order Comment: REF [...] By: #### 2 243-4 #### DWAYNE Nair ([id number]) [facility] ([facility]) [address] [place] [address] 80376 Progesteroneon 09-09-2024 Progesterone [Mass/Vol] 31.9 ng/mL [facility] Comment on above: Order Comment: REF [...] results near 1.0 ng/mL. Contact laboratory at [phone] if alternative testing is needed. Performed By: #### 2 243-4 #### DWAYNE Nair ([id number]) [facility] ([facility]) [address] [place] [address] 88498 Estradiolon 09-04-2024 E2 [Mass/Vol] 222 pg/mL [facility] Comment on above: Order Comment: REF V ALUES FOLLICULAR PHASE 20-144 MID CYCLE 64-357 LUTEAL PHASE 56-214 POSTMENOPAUSE < 32 PREPUBERTY < 20 FEMALE 10-18Y 8-110 MALE 10-18Y < 20 ADULT MALE < 40 Performed By: #### 2 243-4 #### DWAYNE Nair ([id number]) [facility] ([facility]) [address] [place] [address] 52346 Progesteroneon 09-04-2024 Progesterone [Mass/Vol] 33.6 ng/mL Normal [facility] Comment on above: Result Comment: Ref Values Male <0.3- 1.2 Follicular Phase <0.3- 1.4 Luteal Phase 3.3-25.6 Mid-Luteal Phase 4.4-28.0 Postmenopausal <0.3- 0.7 Females: 1st Trimester 11.2- 90.0 2nd Trimester 25.6- 89.4 3RD Trimester 48.4-422.5 Patients receiving DHEA-S supplements may show false elevation of progesterone for results near 1.0 ng/mL. Contact laboratory at [phone] if alternative testing is needed. Performed By: #### 2 243-4 #### DWAYNE Nair ([id number]) [facility] ([facility]) [address] [place] [address] 20502 Progesteroneon 08-25-2024 Progesterone [Mass/Vol] 0.5 ng/mL Normal [facility] Comment on above: Order Comment: REF [...] results near 1.0 ng/mL. Contact laboratory at [phone] if alternative testing is needed. Performed By: #### 2 243-4 #### DWAYNE Nair ([id number]) [facility] ([facility]) [address] [place] [address] Estradiolon 08-21-2024 E2 [Mass/Vol] 427 pg/mL Normal [facility] Comment on above: Order Comment: REF V ALUES FOLLICULAR PHASE 20-144 MID CYCLE 64-357 LUTEAL PHASE 56-214 POSTMENOPAUSE < 32 PREPUBERTY < 20 FEMALE 10-18Y 8-110 MALE 10-18Y < 20 ADULT MALE < 40 Performed By: #### 2 243-4 #### DWAYNE Nair ([id number]) [facility] ([facility]) [address] [place] [address] Lutropinon 08-21-2024 Lutropin Qn 11.4 IU/L Normal [facility] Comment on above: Result Comment: LH R eference Values Follicular Phase 1.9-12.5 IU/L Mid-Cycle 8.7-76.3 IU/L Luteal Phase 0.5-16.9 IU/L Post Menopause 5.0-55.2 IU/L Children 0- 6.0 IU/L Adult Male 18-70 years 1.5- 9.3 IU/L Adult Male >70 years 3.1-34.6 IU/L Performed By: #### 2 1198-7 #### SHAUNA ROBISON ([id number]) [facility] ([facility]) [address] [place] [address] Progesteroneon 08-21-2024 Progesterone [Mass/Vol] 0.6 ng/mL Normal [facility] Comment on above: Result Comment: Ref Values Male <0.3- 1.2 Follicular Phase <0.3- 1.4 Luteal Phase 3.3-25.6 Mid-Luteal Phase 4.4-28.0 Postmenopausal <0.3- 0.7 Females: 1st Trimester 11.2- 90.0 2nd Trimester 25.6- 89.4 3RD Trimester 48.4-422.5 Patients receiving DHEA-S supplements may show false elevation of progesterone for results near 1.0 ng/mL. Contact laboratory at [phone] if alternative testing is needed. Performed By: #### 2 243-4 #### DWAYNE Nair ([id number]) [facility] ([facility]) [address] [place] [address] US PELVIS TRANSABDOMINAL WIT H TRANSVAGINALon 08-21-2024 US PELVIS TRANSABDOMINAL WITH TRANSVAGINAL Interpreted By: Jeremy Brower, STUDY: US PELVIS TRANSABDOMINAL WITH TRANSVAGINAL; 08/21/2024 8:38 am INDICATION: Signs/Symptoms:FERTILITY. ,Z31.83 Encounter for assisted reproductive fertility procedure cycle COMPARISON: 08/14/2024 ACCESSION NUMBER(S): [id number] ORDERING CLINICIAN: LEVON BRAXTON TECHNIQUE: Multiple multiplanar [...] Jeremy Brower 08/22/2024 10:52 AM Dictation workstation: [id number] [facility] Choriogonadotropin.beta subu niton 08-14-2024 HCG.beta subunit Qn m[IU]/mL Normal <5 [facility] Comment on above: Order Comment: Total HCG measurement is performed using the Tut[employer] Berne Access Immunoassay which detects intact HCG and free beta HCG subunit. This test is not indicated for use as a tumor marker. HCG testing is performed using a different test methodology at [facility] than other [facility]. Direct result comparison should only be made within the same method. Performed By: #### 2 1198-7 #### SHAUNA ROBISON ([id number]) [facility] ([facility]) [address] [place] [address] 28497 Estradiolon 08-14-2024 E2 [Mass/Vol] 42 pg/mL [facility] Comment on above: Order Comment: Total HCG measurement is performed using the Tut[employer] Berne Access Immunoassay which detects intact HCG and free beta HCG subunit. This test is not indicated for use as a tumor marker. HCG testing is performed using a different test methodology at [facility] than other [facility]. Direct result comparison should only be made within the same method. Performed By: #### 2 1198-7 #### SHAUNA ROBISON ([id number]) [facility] ([facility]) [address] [place] [address] 12262 Follitropin and Lutropin rhoades el Qnon 08-14-2024 Follitropin Qn 6.4 IU/L [facility] Comment on above: Order Comment: Total HCG measurement is performed using the Tut[employer] Nestor Access Immunoassay which detects intact HCG and free beta HCG subunit. This test is not indicated for use as a tumor marker. HCG testing is performed using a different test methodology at [facility] than other [facility]. Direct result comparison should only be made within the same method. Result Comment: FSH Ref Values Follicular 2.0-12.0 IU/L Mid-Cycle 12.0-25.0 IU/L Luteal Phase 2.0-12.0 IU/L Menopause 30.0-150.0 IU/L Pre-puberty 50% Adult IU/L Adult Male 2.0-10.0 IU/L Infants 0.0-1.0 IU/L Performed By: #### 2 1198-7 #### SHAUNA ROBISON ([id number]) [facility] ([facility]) [address] [place] [address] 18427 Lutropin Qn 5.0 IU/L [facility] Comment on above: Order Comment: Total HCG measurement is performed using the Tut[employer] Berne Access Immunoassay which detects intact HCG and free beta HCG subunit. This test is not indicated for use as a tumor marker. HCG testing is performed using a different test methodology at [facility] than other [facility]. Direct result comparison should only be made within the same method. Result Comment: LH R eference Values Follicular Phase 1.9-12.5 IU/L Mid-Cycle 8.7-76.3 IU/L Luteal Phase 0.5-16.9 IU/L Post Menopause 5.0-55.2 IU/L Children 0- 6.0 IU/L Adult Male 18-70 years 1.5- 9.3 IU/L Adult Male >70 years 3.1-34.6 IU/L Performed By: #### 2 1198-7 #### SHAUNA ROBISON ([id number]) [facility] ([facility]) [address] [place] [address] 70976 Progesteroneon 08-14-2024 Progesterone [Mass/Vol] 0.5 ng/mL Normal [facility] Comment on above: Order Comment: Total HCG measurement is performed using the Tutu Tealeaf Access Immunoassay which detects intact HCG and free beta HCG subunit. This test is not indicated for use as a tumor marker. HCG testing is performed using a different test methodology at [facility] than other [facility]. Direct result comparison should only be made within the same method. Result Comment: Ref Values Male <0.3- 1.2 Follicular Phase <0.3- 1.4 Luteal Phase 3.3-25.6 Mid-Luteal Phase 4.4-28.0 Postmenopausal <0.3- 0.7 Females: 1st Trimester 11.2- 90.0 2nd Trimester 25.6- 89.4 3RD Trimester 48.4-422.5 Patients receiving DHEA-S supplements may show false elevation of progesterone for results near 1.0 ng/mL. Contact laboratory at [phone] if alternative testing is needed. Performed By: #### 2 1198-7 #### SHAUNA ROBISON ([id number]) [facility] ([facility]) [address] [place] [address] 09891 Thyrotropinon 08-14-2024 TSH Qn 1.86 m[IU]/L Normal 0.44-3.98 [facility] Comment on above: Order Comment: Total HCG measurement is performed using the Tutu Tealeaf Access Immunoassay which detects intact HCG and free beta HCG subunit. This test is not indicated for use as a tumor marker. HCG testing is performed using a different test methodology at [facility] than other [facility]. Direct result comparison should only be made within the same method. Performed By: #### 2 1198-7 #### VILLATORO ENRIQUETA ([id number]) [facility] ([facility]) [address] [place] [address] US PELVIS TRANSABDOMINAL WIT H TRANSVAGINALon 08-14-2024 US PELVIS TRANSABDOMINAL WITH TRANSVAGINAL Interpreted By: Ravi Triplett, STUDY: US PELVIS TRANSABDOMINAL WITH TRANSVAGINAL; ; 08/14/2024 8:54 am INDICATION: Signs/Symptoms:FERTILITY. COMPARISON: 06/24/2024 ACCESSION NUMBER(S): [id number] ORDERING CLINICIAN: LEVON BRAXTON TECHNIQUE: Multiple transabdominal [...] Ravi Triplett 08/15/2024 2:03 PM Dictation workstation: [id number] Normal [facility] Internal Medicine Office Vis iton 07-16-2024 Internal Medicine Office Visit Normal [facility] Estradiolon 06-24-2024 E2 [Mass/Vol] 453 pg/mL Normal [facility] Comment on above: Order Comment: Total HCG measurement is performed using the Tut[employer] Berne Access Immunoassay which detects intact HCG and free beta HCG subunit. This test is not indicated for use as a tumor marker. HCG testing is performed using a different test methodology at [facility] than other [facility]. Direct result comparison should only be made within the same method. Performed By: #### 2 1198-7 #### SHAUNA RBOISON ([id number]) [facility] ([facility]) [address] [place] [address] 35470 Lutropinon 06-24-2024 Lutropin Qn 3.1 IU/L Normal [facility] Comment on above: Result Comment: LH R eference Values Follicular Phase 1.9-12.5 IU/L Mid-Cycle 8.7-76.3 IU/L Luteal Phase 0.5-16.9 IU/L Post Menopause 5.0-55.2 IU/L Children 0- 6.0 IU/L Adult Male 18-70 years 1.5- 9.3 IU/L Adult Male >70 years 3.1-34.6 IU/L Performed By: #### 2 1198-7 #### SHAUNA ROBISON ([id number]) [facility] ([facility]) [address] [place], [place] [address] Progesteroneon 06-24-2024 Progesterone [Mass/Vol] 0.6 ng/mL [facility] Comment on above: Result Comment: Ref Values Male <0.3- 1.2 Follicular Phase <0.3- 1.4 Luteal Phase 3.3-25.6 Mid-Luteal Phase 4.4-28.0 Postmenopausal <0.3- 0.7 Females: 1st Trimester 11.2- 90.0 2nd Trimester 25.6- 89.4 3RD Trimester 48.4-422.5 Patients receiving DHEA-S supplements may show false elevation of progesterone for results near 1.0 ng/mL. Contact laboratory at [phone] if alternative testing is needed. Performed By: #### 2 1198-7 #### SHAUNA ROBISON ([id number]) [facility] ([facility]) [address] [place] [address] 26844 GERRY US PELVIS LIMITED FOLLIC LES-FOLLICLE STUDIES PERFORMEDon 06-24-2024 GERRY US PELVIS LIMITED FOLLICLES-FOLLICLE STUDIES PERFORMED Interpreted By: Xiang Bowden, STUDY: US PELVIS TRANSABDOMINAL WITH TRANSVAGINAL; 06/24/2024 9:01 am INDICATION: Signs/Symptoms:FERTILITY. ,Z31.83 Encounter for assisted reproductive fertility procedure cycle COMPARISON: None. ACCESSION NUMBER(S): [id number] ORDERING CLINICIAN: LEVON BRAXTON TECHNIQUE: Multiple multiplanar [...] Xiang Bowden 06/25/2024 6:46 AM Dictation workstation: [id number] [facility] US PELVIS TRANSABDOMINAL WIT H TRANSVAGINALon 06-24-2024 US PELVIS TRANSABDOMINAL WITH TRANSVAGINAL Interpreted By: Xiang Bowden, STUDY: US PELVIS TRANSABDOMINAL WITH TRANSVAGINAL; 06/24/2024 9:01 am INDICATION: Signs/Symptoms:FERTILITY. ,Z31.83 Encounter for assisted reproductive fertility procedure cycle COMPARISON: None. ACCESSION NUMBER(S): [id number] ORDERING CLINICIAN: LEVON BRAXTON TECHNIQUE: Multiple multiplanar [...] Xiang Bowden 06/25/2024 6:46 AM Dictation workstation: [id number] [facility] Estradiolon 06-22-2024 E2 [Mass/Vol] 124 pg/mL [facility] Comment on above: Order Comment: REF V ALUES FOLLICULAR PHASE 20-144 MID CYCLE 64-357 LUTEAL PHASE 56-214 POSTMENOPAUSE < 32 PREPUBERTY < 20 FEMALE 10-18Y 8-110 MALE 10-18Y < 20 ADULT MALE < 40 Performed By: #### 2 243-4 #### DWAYNE Nari ([id number]) [facility] ([facility]) [address] [place] [address] Lutropinon 06-22-2024 Lutropin Qn 1.9 IU/L [facility] Comment on above: Result Comment: LH R eference Values Follicular Phase 1.9-12.5 IU/L Mid-Cycle 8.7-76.3 IU/L Luteal Phase 0.5-16.9 IU/L Post Menopause 5.0-55.2 IU/L Children 0- 6.0 IU/L Adult Male 18-70 years 1.5- 9.3 IU/L Adult Male >70 years 3.1-34.6 IU/L Performed By: #### 1 0501-5 #### DWAYNE Nair ([id number]) [facility] ([facility]) [address] [place], [place] [address] Progesteroneon 06-22-2024 Progesterone [Mass/Vol] 0.4 ng/mL [facility] Comment on above: Result Comment: Ref Values Male <0.3- 1.2 Follicular Phase <0.3- 1.4 Luteal Phase 3.3-25.6 Mid-Luteal Phase 4.4-28.0 Postmenopausal <0.3- 0.7 Females: 1st Trimester 11.2- 90.0 2nd Trimester 25.6- 89.4 3RD Trimester 48.4-422.5 Patients receiving DHEA-S supplements may show false elevation of progesterone for results near 1.0 ng/mL. Contact laboratory at [phone] if alternative testing is needed. Performed By: #### 2 1198-7 #### VILLATORO ENRIQUETA ([id number]) [facility] ([facility]) [address] [place] [id number] GERRY US PELVIS LIMITED FOLLIC LES-FOLLICLE STUDIES PERFORMEDon 06-22-2024 GERRY US PELVIS LIMITED FOLLICLES-FOLLICLE STUDIES PERFORMED Interpreted By: Xiang Bowden, STUDY: US PELVIS TRANSABDOMINAL WITH TRANSVAGINAL; 06/22/2024 9:02 am INDICATION: Signs/Symptoms:FERTILITY. ,Z31.83 Encounter for assisted reproductive fertility procedure cycle COMPARISON: None. ACCESSION NUMBER(S): [id number] ORDERING CLINICIAN: LEVON BRAXTON TECHNIQUE: Multiple multiplanar [...] Xiang Bowden 06/23/2024 5:37 AM Dictation workstation: [id number] [facility] US PELVIS TRANSABDOMINAL WIT H TRANSVAGINALon 06-22-2024 US PELVIS TRANSABDOMINAL WITH TRANSVAGINAL Interpreted By: Xiang Bowden, STUDY: US PELVIS TRANSABDOMINAL WITH TRANSVAGINAL; 06/22/2024 9:02 am INDICATION: Signs/Symptoms:FERTILITY. ,Z31.83 Encounter for assisted reproductive fertility procedure cycle COMPARISON: None. ACCESSION NUMBER(S): [id number] ORDERING CLINICIAN: LEVON BRAXTON TECHNIQUE: Multiple multiplanar [...] Xiang Bowden 06/23/2024 5:37 AM Dictation workstation: [id number] [facility] Estradiolon 06-19-2024 E2 [Mass/Vol] 49 pg/mL [facility] Comment on above: Order Comment: REF V ALUES FOLLICULAR PHASE 20-144 MID CYCLE 64-357 LUTEAL PHASE 56-214 POSTMENOPAUSE < 32 PREPUBERTY < 20 FEMALE 10-18Y 8-110 MALE 10-18Y < 20 ADULT MALE < 40 Performed By: #### 2 243-4 #### DWAYNE Nair ([id number]) [facility] ([facility]) [address] [place] [address] Lutropinon 06-19-2024 Lutropin Qn 7.0 IU/L Normal [facility] Comment on above: Result Comment: LH R eference Values Follicular Phase 1.9-12.5 IU/L Mid-Cycle 8.7-76.3 IU/L Luteal Phase 0.5-16.9 IU/L Post Menopause 5.0-55.2 IU/L Children 0- 6.0 IU/L Adult Male 18-70 years 1.5- 9.3 IU/L Adult Male >70 years 3.1-34.6 IU/L Performed By: #### 1 0501-5 #### DWAYNE Nair ([id number]) [facility] ([facility]) [address] [place] [address] 00507 Progesteroneon 06-19-2024 Progesterone [Mass/Vol] 0.5 ng/mL [facility] Comment on above: Result Comment: Ref Values Male <0.3- 1.2 Follicular Phase <0.3- 1.4 Luteal Phase 3.3-25.6 Mid-Luteal Phase 4.4-28.0 Postmenopausal <0.3- 0.7 Females: 1st Trimester 11.2- 90.0 2nd Trimester 25.6- 89.4 3RD Trimester 48.4-422.5 Patients receiving DHEA-S supplements may show false elevation of progesterone for results near 1.0 ng/mL. Contact laboratory at [phone] if alternative testing is needed. Performed By: #### 2 839-9 #### DWAYNE Nair ([id number]) [facility] ([facility]) [address] [place] [address] 90399 GERRY US PELVIS LIMITED FOLLIC LES-FOLLICLE STUDIES PERFORMEDon 06-19-2024 GERRY US PELVIS LIMITED FOLLICLES-FOLLICLE STUDIES PERFORMED Interpreted By: Lawson Wynn, STUDY: US PELVIS TRANSABDOMINAL WITH TRANSVAGINAL; 06/19/2024 9:11 am INDICATION: Signs/Symptoms:FERTILITY. ,Z31.83 Encounter for assisted reproductive fertility procedure cycle COMPARISON: Prior exam from 06/15/2024.. ACCESSION NUMBER(S): [id number] ORDERING CLINICIAN: LEVON BRAXTON TECHNIQUE: Multiple multiplanar [...] Lawson Wynn 06/20/2024 4:53 PM Dictation workstation: [id number] [facility] US PELVIS TRANSABDOMINAL WIT H TRANSVAGINALon 06-19-2024 US PELVIS TRANSABDOMINAL WITH TRANSVAGINAL Interpreted By: Lawson Wynn, STUDY: US PELVIS TRANSABDOMINAL WITH TRANSVAGINAL; 06/19/2024 9:11 am INDICATION: Signs/Symptoms:FERTILITY. ,Z31.83 Encounter for assisted reproductive fertility procedure cycle COMPARISON: Prior exam from 06/15/2024.. ACCESSION NUMBER(S): [id number] ORDERING CLINICIAN: LEVON BRAXTON TECHNIQUE: Multiple multiplanar [...] Lawson Wynn 06/20/2024 4:53 PM Dictation workstation: [id number] [facility] Choriogonadotropin.beta subu niton 06-15-2024 HCG.beta subunit Qn m[IU]/mL Normal <5 [facility] Comment on above: Order Comment: Total HCG measurement is performed using the Tut[employer] Nest[employer] Access Immunoassay which detects intact HCG and free beta HCG subunit. This test is not indicated for use as a tumor marker. HCG testing is performed using a different test methodology at [facility] than other [facility]. Direct result comparison should only be made within the same method. Performed By: #### 2 1198-7 #### SHAUNA ROBISON ([id number]) [facility] ([facility]) [address] [place] [address] Estradiolon 06-15-2024 E2 [Mass/Vol] 47 pg/mL [facility] Comment on above: Order Comment: REF V ALUES FOLLICULAR PHASE 20-144 MID CYCLE 64-357 LUTEAL PHASE 56-214 POSTMENOPAUSE < 32 PREPUBERTY < 20 FEMALE 10-18Y 8-110 MALE 10-18Y < 20 ADULT MALE < 40 Performed By: #### 2 243-4 #### DWAYNE Nair ([id number]) [facility] ([facility]) [address] [place] [address] 15042 Follitropin and Lutropin rhoades el Qnon 06-15-2024 Follitropin Qn 5.0 IU/L [facility] Comment on above: Result Comment: FSH Ref Values Follicular 2.0-12.0 IU/L Mid-Cycle 12.0-25.0 IU/L Luteal Phase 2.0-12.0 IU/L Menopause 30.0-150.0 IU/L Pre-puberty 50% Adult IU/L Adult Male 2.0-10.0 IU/L Infants 0.0-1.0 IU/L Performed By: #### 3 4549-6 #### DWAYNE Nair ([id number]) [facility] ([facility]) [address] [place] [address] 22214 Lutropin Qn 2.9 IU/L [facility] Comment on above: Result Comment: LH R eference Values Follicular Phase 1.9-12.5 IU/L Mid-Cycle 8.7-76.3 IU/L Luteal Phase 0.5-16.9 IU/L Post Menopause 5.0-55.2 IU/L Children 0- 6.0 IU/L Adult Male 18-70 years 1.5- 9.3 IU/L Adult Male >70 years 3.1-34.6 IU/L Performed By: #### 3 4549-6 #### DWAYNE Nair ([id number]) [facility] ([facility]) [address] [place] [address] 69910 Progesteroneon 06-15-2024 Progesterone [Mass/Vol] 0.5 ng/mL [facility] Comment on above: Result Comment: Ref Values Male <0.3- 1.2 Follicular Phase <0.3- 1.4 Luteal Phase 3.3-25.6 Mid-Luteal Phase 4.4-28.0 Postmenopausal <0.3- 0.7 Females: 1st Trimester 11.2- 90.0 2nd Trimester 25.6- 89.4 3RD Trimester 48.4-422.5 Patients receiving DHEA-S supplements may show false elevation of progesterone for results near 1.0 ng/mL. Contact laboratory at [phone] if alternative testing is needed. Performed By: #### 2 839-9 #### DWAYNE Nair ([id number]) [facility] ([facility]) [address] [place] [address] Thyrotropinon 06-15-2024 TSH Qn 2.68 m[IU]/L Normal 0.44-3.98 [facility] Comment on above: Order Comment: TSH t esting is performed using different testing methodology at [facility] than at other [facility]. Direct result comparisons should only be made within the same method. Performed By: #### 3 016-3 #### VILLATORO ENRIQUETA ([id number]) [facility] ([facility]) [address] [place] [address] US PELVIS TRANSABDOMINAL WIT H TRANSVAGINALon 06-15-2024 US PELVIS TRANSABDOMINAL WITH TRANSVAGINAL Interpreted By: Dyllan De Jesus, STUDY: US PELVIS TRANSABDOMINAL WITH TRANSVAGINAL; ; 06/15/2024 8:31 am INDICATION: Signs/Symptoms:Fertility. COMPARISON: None. ACCESSION NUMBER(S): [id number] ORDERING CLINICIAN: LEVON BRAXTON TECHNIQUE: Multiple multiplanar [...] De Jesus 06/15/2024 12:12 PM Dictation workstation: [id number] [facility] US Pelvis transvaginalon 1. Single follicle w ithin the right ovary, as above. 2. Tiny hypoechoic focus in the endometrium, of uncertain etiology. MACRO: None Signed by: Dyllan De Jesus 06/15/2024 12:12 PM Dictation workstation: [id number] Interpreted By: Dyllan Ferrara, STUDY: US PELVIS TRANSABDOMINAL WITH TRANSVAGINAL; ; 06/15/2024 8:31 am INDICATION: Signs/Symptoms:Fertility. COMPARISON: None. ACCESSION NUMBER(S): [id number] ORDERING CLINICIAN: LEVON BRAXTON TECHNIQUE: Multiple multiplanar [...] am INDICATION: Signs/Symptoms:Fertility. COMPARISON: None. ACCESSION NUMBER(S): [id number] ORDERING CLINICIAN: LEVON BRAXTON TECHNIQUE: Multiple multiplanar [...] De Jesus 06/15/2024 12:12 PM Dictation workstation: [id number] [facility] Work Phone: Radiology Study observation (narrative) [facility] Work Phone: US Pelvis transvaginalOrdere d By: Dyllan De Jesus on 06-15-2024 [facility] Work Phone: Antimullerian Hormone, Serum on 06-02-2024 AMH, SERUM 3.66 ng/mL Normal . [facility] Comment on above: Result Comment: For assays employing antibodies, the possibility exists forinterference by heterophile antibodies in the samples.11.Adele Nair. Interferences in Immunoassays - still a threat. Clin. Chem. 2000; 46: 2639-4851.This test was developed and its performance characteristicsdetermined by [employer]. It has not been cleared or approvedby the Food and Drug Administration.Reference Range:Females 31 - 35y: 0.66 - 8.75Median 3.00AMH concentrations of >= 1.06 ng/mL is correlated with abetter response to ovarian stimulation, produced moreretrievable oocytes and higher odds of live accordingto Thanh et al. Fertility and Sterility. 2010:94:2321-4173. The current AMH test method correlates withthe [...] L509.8000, L3100.5400, L501.9985, L3890.6005, L803.3000, L3890.6300, L3100.5170 ####[facility] [id number] [place], [place], [id number] PROLACTIN 4465on 06-02-2024 PROLACTIN 7.8 ng/mL Normal 4.8-33.4 [facility] Comment on above: Performed By: #### L 509.4005, L3300.1750, L3100.5140, L509.3000, L3890.6100, L100.0100, L801.2600, L501.9520, L3100.5125, L506.1000, L3400.0000, L500.4050, B882-1, L509.8000, L3100.5400, L501.9985, L3890.6005, L803.3000, L3890.6300, L3100.5170 ####[facility] [address] [place], [place], [phone] V-Zoster IgG (Immunity)on V ZOSTER IgG 1347 index Normal Immune >165 [facility] Comment on above: Result Comment: Nega tive <135 Equivocal 135 - 165 Positive >165A positive result generally indicates exposure to thepathogen or administration of specific immunoglobulins,but it is not indication of active infection or stageof disease.Performed at: [facility] [address] [place], [place] [id number] Director: Kolton Workman MD, Phone: [phone] at: [facility] [id number] [place], [place] [id number] Director: Huan Kuhn PhD, Phone: [phone] Performed By: #### L 509.4005, L3300.1750, L3100.5140, L509.3000, L3890.6100, L100.0100, L801.2600, L501.9520, L3100.5125, L506.1000, L3400.0000, L500.4050, B882-1, L509.8000, L3100.5400, L501.9985, L3890.6005, L803.3000, L3890.6300, L3100.5170 ####[facility] [address] [place], [place], [id number] HCG BETA-SUBUNIT QUANT.on HCG B-SUBUNIT < 1 Normal . [facility] Comment on above: Order Comment: N Result Comment: Fema le (Non-) 0 - 5 (Postmenopausal) 0 - 8 Female () Weeks of Gestation 3 6 - 71 4 10 - 750 5 515 - 7560 6 760 - 18528 7 6269 -025094 8 31563 -333889 9 66654 -672216 10 92978 -389165 12 24078 -499369 14 39159 - 07267 15 34515 - 28532 16 3311 - 25783 17 6785 - 14612 18 2482 - 76184Roche ECLIA methodology Performed By: #### L 509.4005, L3300.1750, L3100.5140, L509.3000, L3890.6100, L100.0100, L801.2600, L501.9520, L3100.5125, L506.1000, L3400.0000, L500.4050, B882-1, L509.8000, L3100.5400, L501.9985, L3890.6005, L803.3000, L3890.6300, L3100.5170 ####[facility] [address] [place], [address] PROGESTERONE 4317on 05-28-20 PROGESTERONE 0.2 ng/mL Normal . [facility] Comment on above: Order Comment: N Result Comment: Foll icular phase 0.1 - 0.9 Luteal phase 1.8 - 23.9 Ovulation phase 0.1 - 12.0 First trimester 11.0 - 44.3 Second trimester 25.4 - 83.3 Third trimester 58.7 - 214.0 Postmenopausal 0.0 - 0.1Performed at: [address] [id number] Director: Huan Kuhn PhD, Phone: [phone] Performed By: #### L 509.4005, L3300.1750, L3100.5140, L509.3000, L3890.6100, L100.0100, L801.2600, L501.9520, L3100.5125, L506.1000, L3400.0000, L500.4050, B882-1, L509.8000, L3100.5400, L501.9985, L3890.6005, L803.3000, L3890.6300, L3100.5170 ####[facility] [address] [place], [place], [address] [id number] 05-27-2024 ABO and Rh group Nom (Bld) Blood group B Rh(D) negative Normal [facility] Comment on above: Performed By: #### L 509.4005, L3300.1750, L3100.5140, L509.3000, L3890.6100, L100.0100, L801.2600, L501.9520, L3100.5125, L506.1000, L3400.0000, L500.4050, B882-1, L509.8000, L3100.5400, L501.9985, L3890.6005, L803.3000, L3890.6300, L3100.5170 ####[facility] [address] [place], [place], [phone] CBC W/Diff, Automatedon 05-01 Absolute Lymph 2.52 X10 3/uL Normal 0.83-4.51 [facility] Comment on above: Performed By: #### L 509.4005, L3300.1750, L3100.5140, L509.3000, L3890.6100, L100.0100, L801.2600, L501.9520, L3100.5125, L506.1000, L3400.0000, L500.4050, B882-1, L509.8000, L3100.5400, L501.9985, L3890.6005, L803.3000, L3890.6300, L3100.5170 ####[facility] [address] [place], [place], [address] Absolute Neut 6.0 X10 3/uL Normal 2.0-7.7 [facility] Comment on above: Performed By: #### L 509.4005, L3300.1750, L3100.5140, L509.3000, L3890.6100, L100.0100, L801.2600, L501.9520, L3100.5125, L506.1000, L3400.0000, L500.4050, B882-1, L509.8000, L3100.5400, L501.9985, L3890.6005, L803.3000, L3890.6300, L3100.5170 ####[facility] [address] [facility] [place], [address](358) Basophils/100 WBC (Bld) 0.7 % Normal 0-1 [facility] Comment on above: Performed By: #### L 509.4005, L3300.1750, L3100.5140, L509.3000, L3890.6100, L100.0100, L801.2600, L501.9520, L3100.5125, L506.1000, L3400.0000, L500.4050, B882-1, L509.8000, L3100.5400, L501.9985, L3890.6005, L803.3000, L3890.6300, L3100.5170 ####[facility] [address] [place], [address](301) Eosinophils/100 WBC (Bld) 2.2 % Normal 0-5 [facility] Comment on above: Performed By: #### L 509.4005, L3300.1750, L3100.5140, L509.3000, L3890.6100, L100.0100, L801.2600, L501.9520, L3100.5125, L506.1000, L3400.0000, L500.4050, B882-1, L509.8000, L3100.5400, L501.9985, L3890.6005, L803.3000, L3890.6300, L3100.5170 ####[facility] [address] [place], [address] Erythrocyte distribution width (RBC) [Ratio] 12.6 % Normal 11.6-14.6 [facility] Comment on above: Performed By: #### L 509.4005, L3300.1750, L3100.5140, L509.3000, L3890.6100, L100.0100, L801.2600, L501.9520, L3100.5125, L506.1000, L3400.0000, L500.4050, B882-1, L509.8000, L3100.5400, L501.9985, L3890.6005, L803.3000, L3890.6300, L3100.5170 ####[facility] [address] [place], [address] Hematocrit (Bld) [Volume fraction] 45.4 % Normal 37-47 [facility] Comment on above: Performed By: #### L 509.4005, L3300.1750, L3100.5140, L509.3000, L3890.6100, L100.0100, L801.2600, L501.9520, L3100.5125, L506.1000, L3400.0000, L500.4050, B882-1, L509.8000, L3100.5400, L501.9985, L3890.6005, L803.3000, L3890.6300, L3100.5170 ####[facility] [address] [place], [address] Hemoglobin (Bld) [Mass/Vol] 14.7 g/dL Normal 12.0-15.0 [facility] Comment on above: Performed By: #### L 509.4005, L3300.1750, L3100.5140, L509.3000, L3890.6100, L100.0100, L801.2600, L501.9520, L3100.5125, L506.1000, L3400.0000, L500.4050, B882-1, L509.8000, L3100.5400, L501.9985, L3890.6005, L803.3000, L3890.6300, L3100.5170 ####[facility] [address] [place], [address] IG% 0.900 Normal 0.0-0.9 [facility] Comment on above: Result Comment: IG% - Immature Granulocytes (promyelocytes, myelocytes andmetamyelocytes) > 1% indicates that a LEFT SHIFT is Present. Performed By: #### L 509.4005, L3300.1750, L3100.5140, L509.3000, L3890.6100, L100.0100, L801.2600, L501.9520, L3100.5125, L506.1000, L3400.0000, L500.4050, B882-1, L509.8000, L3100.5400, L501.9985, L3890.6005, L803.3000, L3890.6300, L3100.5170 ####[facility] [address] [facility] [place], [place], [address] Lymphocytes/100 WBC (Bld) 26.9 % Normal 19-41 [facility] Comment on above: Performed By: #### L 509.4005, L3300.1750, L3100.5140, L509.3000, L3890.6100, L100.0100, L801.2600, L501.9520, L3100.5125, L506.1000, L3400.0000, L500.4050, B882-1, L509.8000, L3100.5400, L501.9985, L3890.6005, L803.3000, L3890.6300, L3100.5170 ####[facility] [address] [place], [place], [phone] MCH (RBC) [Entitic mass] 27.8 pg Normal 27.0-32.0 [facility] Comment on above: Performed By: #### L 509.4005, L3300.1750, L3100.5140, L509.3000, L3890.6100, L100.0100, L801.2600, L501.9520, L3100.5125, L506.1000, L3400.0000, L500.4050, B882-1, L509.8000, L3100.5400, L501.9985, L3890.6005, L803.3000, L3890.6300, L3100.5170 ####[facility] [address] [place], [address] MCHC (RBC) [Mass/Vol] 32.4 g/dL Normal 32-36 [facility] Comment on above: Performed By: #### L 509.4005, L3300.1750, L3100.5140, L509.3000, L3890.6100, L100.0100, L801.2600, L501.9520, L3100.5125, L506.1000, L3400.0000, L500.4050, B882-1, L509.8000, L3100.5400, L501.9985, L3890.6005, L803.3000, L3890.6300, L3100.5170 ####[facility] [address] [place], [address] MCV (RBC) [Entitic vol] 85.8 fL Normal 81-99 [facility] Comment on above: Performed By: #### L 509.4005, L3300.1750, L3100.5140, L509.3000, L3890.6100, L100.0100, L801.2600, L501.9520, L3100.5125, L506.1000, L3400.0000, L500.4050, B882-1, L509.8000, L3100.5400, L501.9985, L3890.6005, L803.3000, L3890.6300, L3100.5170 ####[facility] [address] [facility] [place], [address] Monocytes/100 WBC (Bld) 5.4 % Normal 0-10 [facility] Comment on above: Performed By: #### L 509.4005, L3300.1750, L3100.5140, L509.3000, L3890.6100, L100.0100, L801.2600, L501.9520, L3100.5125, L506.1000, L3400.0000, L500.4050, B882-1, L509.8000, L3100.5400, L501.9985, L3890.6005, L803.3000, L3890.6300, L3100.5170 ####[facility] [address] [place], [address](661) Neutrophils/100 WBC (Bld) 63.9 % Normal 47-70 [facility] Comment on above: Performed By: #### L 509.4005, L3300.1750, L3100.5140, L509.3000, L3890.6100, L100.0100, L801.2600, L501.9520, L3100.5125, L506.1000, L3400.0000, L500.4050, B882-1, L509.8000, L3100.5400, L501.9985, L3890.6005, L803.3000, L3890.6300, L3100.5170 ####[facility] [address] [place], [address] Nucleated RBC (Bld) [#/Vol] 0 10*3/uL Normal 0-5 [facility] Comment on above: Performed By: #### L 509.4005, L3300.1750, L3100.5140, L509.3000, L3890.6100, L100.0100, L801.2600, L501.9520, L3100.5125, L506.1000, L3400.0000, L500.4050, B882-1, L509.8000, L3100.5400, L501.9985, L3890.6005, L803.3000, L3890.6300, L3100.5170 ####[facility] [address] [place], [address] Platelet mean volume (Bld) [Entitic vol] 8.7 fL Normal 6.2-12.0 [facility] Comment on above: Performed By: #### L 509.4005, L3300.1750, L3100.5140, L509.3000, L3890.6100, L100.0100, L801.2600, L501.9520, L3100.5125, L506.1000, L3400.0000, L500.4050, B882-1, L509.8000, L3100.5400, L501.9985, L3890.6005, L803.3000, L3890.6300, L3100.5170 ####[facility] [address] [facility]. [place], [place], [address](367) Platelets (Bld) [#/Vol] 348 10*3/uL Normal 150-450 [facility] Comment on above: Performed By: #### L 509.4005, L3300.1750, L3100.5140, L509.3000, L3890.6100, L100.0100, L801.2600, L501.9520, L3100.5125, L506.1000, L3400.0000, L500.4050, B882-1, L509.8000, L3100.5400, L501.9985, L3890.6005, L803.3000, L3890.6300, L3100.5170 ####[facility] [address] [facility]. [place], [place], [phone]- RBC (Bld) [#/Vol] 5.29 10*6/uL Normal 4.2-5.4 [facility] Comment on above: Performed By: #### L 509.4005, L3300.1750, L3100.5140, L509.3000, L3890.6100, L100.0100, L801.2600, L501.9520, L3100.5125, L506.1000, L3400.0000, L500.4050, B882-1, L509.8000, L3100.5400, L501.9985, L3890.6005, L803.3000, L3890.6300, L3100.5170 ####[facility] [address] [place], [address] RDW SD 39.6 fl Normal 35.1-43.9 [facility] Comment on above: Performed By: #### L 509.4005, L3300.1750, L3100.5140, L509.3000, L3890.6100, L100.0100, L801.2600, L501.9520, L3100.5125, L506.1000, L3400.0000, L500.4050, B882-1, L509.8000, L3100.5400, L501.9985, L3890.6005, L803.3000, L3890.6300, L3100.5170 ####[facility] [address] [place], [address] WBC (Bld) [#/Vol] 9.4 10*3/uL Normal 4.4-11.0 [facility] Comment on above: Performed By: #### L 509.4005, L3300.1750, L3100.5140, L509.3000, L3890.6100, L100.0100, L801.2600, L501.9520, L3100.5125, L506.1000, L3400.0000, L500.4050, B882-1, L509.8000, L3100.5400, L501.9985, L3890.6005, L803.3000, L3890.6300, L3100.5170 ####[facility] [address] [place], [address] Comprehensive Metabolic Prof caon 05-27-2024 Albumin [Mass/Vol] 3.8 g/dL Normal 3.2-5.0 [facility] Comment on above: Performed By: #### L 509.4005, L3300.1750, L3100.5140, L509.3000, L3890.6100, L100.0100, L801.2600, L501.9520, L3100.5125, L506.1000, L3400.0000, L500.4050, B882-1, L509.8000, L3100.5400, L501.9985, L3890.6005, L803.3000, L3890.6300, L3100.5170 ####[facility] [address] [place], [place], [address] Albumin/Globulin [Mass ratio] 1.0 {ratio} Normal 0.9-2.4 [facility] Comment on above: Performed By: #### L 509.4005, L3300.1750, L3100.5140, L509.3000, L3890.6100, L100.0100, L801.2600, L501.9520, L3100.5125, L506.1000, L3400.0000, L500.4050, B882-1, L509.8000, L3100.5400, L501.9985, L3890.6005, L803.3000, L3890.6300, L3100.5170 ####[facility] [address] [place], [place], [address] ALK P 86 U/L Normal 45-117 [facility] Comment on above: Performed By: #### L 509.4005, L3300.1750, L3100.5140, L509.3000, L3890.6100, L100.0100, L801.2600, L501.9520, L3100.5125, L506.1000, L3400.0000, L500.4050, B882-1, L509.8000, L3100.5400, L501.9985, L3890.6005, L803.3000, L3890.6300, L3100.5170 ####[facility] [address] [place], [place], [phone] ALT [Catalytic activity/Vol] 59 U/L High 13-56 [facility] Comment on above: Performed By: #### L 509.4005, L3300.1750, L3100.5140, L509.3000, L3890.6100, L100.0100, L801.2600, L501.9520, L3100.5125, L506.1000, L3400.0000, L500.4050, B882-1, L509.8000, L3100.5400, L501.9985, L3890.6005, L803.3000, L3890.6300, L3100.5170 ####[facility] [address] [place], [place], [address] AST [Catalytic activity/Vol] 40 U/L High 15-37 [facility] Comment on above: Performed By: #### L 509.4005, L3300.1750, L3100.5140, L509.3000, L3890.6100, L100.0100, L801.2600, L501.9520, L3100.5125, L506.1000, L3400.0000, L500.4050, B882-1, L509.8000, L3100.5400, L501.9985, L3890.6005, L803.3000, L3890.6300, L3100.5170 ####[facility] [address] [place], [place], [address] Bilirubin [Mass/Vol] 0.50 mg/dL Normal 0.20-1.00 [facility] Comment on above: Result Comment: For patients on eltrombopag therapy, use of Dimension [place] TBIL is not recommended. Performed By: #### L 509.4005, L3300.1750, L3100.5140, L509.3000, L3890.6100, L100.0100, L801.2600, L501.9520, L3100.5125, L506.1000, L3400.0000, L500.4050, B882-1, L509.8000, L3100.5400, L501.9985, L3890.6005, L803.3000, L3890.6300, L3100.5170 ####[facility] [address] [place], [place], [phone](839) BUN/CRE 11.7 RATIO Normal 10-20 [facility] Comment on above: Performed By: #### L 509.4005, L3300.1750, L3100.5140, L509.3000, L3890.6100, L100.0100, L801.2600, L501.9520, L3100.5125, L506.1000, L3400.0000, L500.4050, B882-1, L509.8000, L3100.5400, L501.9985, L3890.6005, L803.3000, L3890.6300, L3100.5170 ####[facility] [address] [place], [place], [phone](015) CA,Total 9.1 mg/dL Normal 8.5-10.1 [facility] Comment on above: Performed By: #### L 509.4005, L3300.1750, L3100.5140, L509.3000, L3890.6100, L100.0100, L801.2600, L501.9520, L3100.5125, L506.1000, L3400.0000, L500.4050, B882-1, L509.8000, L3100.5400, L501.9985, L3890.6005, L803.3000, L3890.6300, L3100.5170 ####[facility] [address] [place], [place], [phone](534) Chloride [Moles/Vol] 107 mmol/L Normal 98-107 [facility] Comment on above: Performed By: #### L 509.4005, L3300.1750, L3100.5140, L509.3000, L3890.6100, L100.0100, L801.2600, L501.9520, L3100.5125, L506.1000, L3400.0000, L500.4050, B882-1, L509.8000, L3100.5400, L501.9985, L3890.6005, L803.3000, L3890.6300, L3100.5170 ####[facility] [address] [place], [place], [phone](471) CO2 [Moles/Vol] 24.0 mmol/L Normal 21.0-32.0 [facility] Comment on above: Performed By: #### L 509.4005, L3300.1750, L3100.5140, L509.3000, L3890.6100, L100.0100, L801.2600, L501.9520, L3100.5125, L506.1000, L3400.0000, L500.4050, B882-1, L509.8000, L3100.5400, L501.9985, L3890.6005, L803.3000, L3890.6300, L3100.5170 ####[facility] [address] [place], [place], [phone](602) Creatinine [Mass/Vol] 0.68 mg/dL Normal 0.55-1.02 [facility] Comment on above: Result Comment: The validity of the calculated GFR GFRAA in patients over70 years has not been determined. Clinical correlation isessential. Performed By: #### L 509.4005, L3300.1750, L3100.5140, L509.3000, L3890.6100, L100.0100, L801.2600, L501.9520, L3100.5125, L506.1000, L3400.0000, L500.4050, B882-1, L509.8000, L3100.5400, L501.9985, L3890.6005, L803.3000, L3890.6300, L3100.5170 ####[facility] [address] [place], [place], [phone](252) EST GFR - AA 126 mL/min Normal >60 [facility] Comment on above: Result Comment: Afri can [place] GFR Calc Performed By: #### L 509.4005, L3300.1750, L3100.5140, L509.3000, L3890.6100, L100.0100, L801.2600, L501.9520, L3100.5125, L506.1000, L3400.0000, L500.4050, B882-1, L509.8000, L3100.5400, L501.9985, L3890.6005, L803.3000, L3890.6300, L3100.5170 ####[facility] [address] [facility] [place], [address] GAP 7 Normal 5-15 [facility] Comment on above: Performed By: #### L 509.4005, L3300.1750, L3100.5140, L509.3000, L3890.6100, L100.0100, L801.2600, L501.9520, L3100.5125, L506.1000, L3400.0000, L500.4050, B882-1, L509.8000, L3100.5400, L501.9985, L3890.6005, L803.3000, L3890.6300, L3100.5170 ####[facility] [address] [place], [place], [phone] GFR/1.73 sq M.predicted among non-blacks MDRD (S/P/Bld) [Vol rate/Area] 104 mL/min/{1.73_m2} Normal >60 [facility] Comment on above: Result Comment: Non- GFR Calc Performed By: #### L 509.4005, L3300.1750, L3100.5140, L509.3000, L3890.6100, L100.0100, L801.2600, L501.9520, L3100.5125, L506.1000, L3400.0000, L500.4050, B882-1, L509.8000, L3100.5400, L501.9985, L3890.6005, L803.3000, L3890.6300, L3100.5170 ####[facility] [address] [place], [place], [phone](170) Globulin (S) [Mass/Vol] 4.0 g/dL Normal 2.2-4.2 [facility] Comment on above: Performed By: #### L 509.4005, L3300.1750, L3100.5140, L509.3000, L3890.6100, L100.0100, L801.2600, L501.9520, L3100.5125, L506.1000, L3400.0000, L500.4050, B882-1, L509.8000, L3100.5400, L501.9985, L3890.6005, L803.3000, L3890.6300, L3100.5170 ####[facility] [address] [place], [place], [phone](621) Glucose [Mass/Vol] 98 mg/dL Normal 74-106 [facility] Comment on above: Performed By: #### L 509.4005, L3300.1750, L3100.5140, L509.3000, L3890.6100, L100.0100, L801.2600, L501.9520, L3100.5125, L506.1000, L3400.0000, L500.4050, B882-1, L509.8000, L3100.5400, L501.9985, L3890.6005, L803.3000, L3890.6300, L3100.5170 ####[facility] [address] [place], [place], [phone]) Potassium [Moles/Vol] 3.9 mmol/L Normal 3.5-5.1 [facility] Comment on above: Performed By: #### L 509.4005, L3300.1750, L3100.5140, L509.3000, L3890.6100, L100.0100, L801.2600, L501.9520, L3100.5125, L506.1000, L3400.0000, L500.4050, B882-1, L509.8000, L3100.5400, L501.9985, L3890.6005, L803.3000, L3890.6300, L3100.5170 ####[facility] [address] [place], [address] Sodium [Moles/Vol] 138 mmol/L Normal 136-145 [facility] Comment on above: Performed By: #### L 509.4005, L3300.1750, L3100.5140, L509.3000, L3890.6100, L100.0100, L801.2600, L501.9520, L3100.5125, L506.1000, L3400.0000, L500.4050, B882-1, L509.8000, L3100.5400, L501.9985, L3890.6005, L803.3000, L3890.6300, L3100.5170 ####[facility] [address] [place], [address] T PROT 7.8 g/dL Normal 6.4-8.2 [facility] Comment on above: Performed By: #### L 509.4005, L3300.1750, L3100.5140, L509.3000, L3890.6100, L100.0100, L801.2600, L501.9520, L3100.5125, L506.1000, L3400.0000, L500.4050, B882-1, L509.8000, L3100.5400, L501.9985, L3890.6005, L803.3000, L3890.6300, L3100.5170 ####[facility] [address] [place], [place], [phone] Urea nitrogen [Mass/Vol] 8 mg/dL Normal 7-18 [facility] Comment on above: Performed By: #### L 509.4005, L3300.1750, L3100.5140, L509.3000, L3890.6100, L100.0100, L801.2600, L501.9520, L3100.5125, L506.1000, L3400.0000, L500.4050, B882-1, L509.8000, L3100.5400, L501.9985, L3890.6005, L803.3000, L3890.6300, L3100.5170 ####[facility] [address] [place], [place], [phone] Estradiolon 05-27-2024 ESTRADIOL 133.9 pg/mL Normal [facility] Comment on above: Result Comment: [...] L509.8000, L3100.5400, L501.9985, L3890.6005, L803.3000, L3890.6300, L3100.5170 ####[facility] [address] [place], [place], [id number] Follicle Stimulating Hormone on 05-27-2024 FSH 5.8 mIU/mL Normal [facility] Comment on above: Result Comment: [...] L509.8000, L3100.5400, L501.9985, L3890.6005, L803.3000, L3890.6300, L3100.5170 ####[facility] [address] [place], [address] HIV - WCHon 05-27-2024 HIV Non-Reactive Normal Nonreactive [facility] Comment on above: Performed By: #### L 509.4005, L3300.1750, L3100.5140, L509.3000, L3890.6100, L100.0100, L801.2600, L501.9520, L3100.5125, L506.1000, L3400.0000, L500.4050, B882-1, L509.8000, L3100.5400, L501.9985, L3890.6005, L803.3000, L3890.6300, L3100.5170 ####[facility] [address] [facility] [place], [address] Hemoglobin A1con 05-27-2024 HbA1c (Bld) [Mass fraction] 5.4 % Normal 3.8-5.6 [facility] Comment on above: Result Comment: Norm al < 5.7 % Prediabetic 5.7 - 6.4 % Diabetic >or= 6.5 % Please note range changes. Performed By: #### L 509.4005, L3300.1750, L3100.5140, L509.3000, L3890.6100, L100.0100, L801.2600, L501.9520, L3100.5125, L506.1000, L3400.0000, L500.4050, B882-1, L509.8000, L3100.5400, L501.9985, L3890.6005, L803.3000, L3890.6300, L3100.5170 ####[facility] [address] [place], [place], [id number] Hepatitis B Surface Antigeno n 05-27-2024 HEP B Surf Ag Non-Reactive Normal Nonreactive [facility] Comment on above: Performed By: #### L 509.4005, L3300.1750, L3100.5140, L509.3000, L3890.6100, L100.0100, L801.2600, L501.9520, L3100.5125, L506.1000, L3400.0000, L500.4050, B882-1, L509.8000, L3100.5400, L501.9985, L3890.6005, L803.3000, L3890.6300, L3100.5170 ####[facility] [address] [facility]. [place], [place], [id number] Hepatitis C Antibodyon 05-27 Hepatitis C AB Non-Reactive Normal Nonreactive [facility] Comment on above: Result Comment: Non Reactive: < 0.8 Equivocal: >/= 0.8 to < 1.0 Reactive: >/= 1.0The CDC requires that a reactive/equivocal HCV antibodyresult be sent out for confirmation. HCV Quant by PCRtesting. Performed By: #### L 509.4005, L3300.1750, L3100.5140, L509.3000, L3890.6100, L100.0100, L801.2600, L501.9520, L3100.5125, L506.1000, L3400.0000, L500.4050, B882-1, L509.8000, L3100.5400, L501.9985, L3890.6005, L803.3000, L3890.6300, L3100.5170 ####[facility] [id number] [place], [place], [id number] L509.8000on 05-27-2024 Syphilis Abs Non-Reactive Normal [facility] Comment on above: Performed By: #### L 509.4005, L3300.1750, L3100.5140, L509.3000, L3890.6100, L100.0100, L801.2600, L501.9520, L3100.5125, L506.1000, L3400.0000, L500.4050, B882-1, L509.8000, L3100.5400, L501.9985, L3890.6005, L803.3000, L3890.6300, L3100.5170 ####[facility] [address] [facility] [place], [place], [id number] Luteinizing Hormoneon 2023 LH 17.0 mIU/mL Normal [facility] Comment on above: Result Comment: [...] L509.8000, L3100.5400, L501.9985, L3890.6005, L803.3000, L3890.6300, L3100.5170 ####[facility] [address] [place], [place], [id number] Rubella IgGon 05-27-2024 Rubella IgG Reactive Normal Nonreactive [facility] Comment on above: Result Comment: Anti body Results Interpretation of Immune Status Non Reactive Presumed Non-Immune Equivocal Equivocal Reactive Presumed Immune Performed By: #### L 509.4005, L3300.1750, L3100.5140, L509.3000, L3890.6100, L100.0100, L801.2600, L501.9520, L3100.5125, L506.1000, L3400.0000, L500.4050, B882-1, L509.8000, L3100.5400, L501.9985, L3890.6005, L803.3000, L3890.6300, L3100.5170 ####[facility] [address] [place], [place], [address] Testosterone, Serum Totalon 05-27-2024 Testosterone [Mass/Vol] 44.25 ng/dL Normal [facility] Comment on above: Result Comment: [...] L509.8000, L3100.5400, L501.9985, L3890.6005, L803.3000, L3890.6300, L3100.5170 ####[facility] [address] [place], [place], [address] Thyroid Stim Hormone (TSH)on 05-27-2024 TSH 1.510 uIU/mL Normal 0.358-3.740 [facility] Comment on above: Performed By: #### L 509.4005, L3300.1750, L3100.5140, L509.3000, L3890.6100, L100.0100, L801.2600, L501.9520, L3100.5125, L506.1000, L3400.0000, L500.4050, B882-1, L509.8000, L3100.5400, L501.9985, L3890.6005, L803.3000, L3890.6300, L3100.5170 ####[facility] [address] [place], [id number] Vitamin D,25 Hydroxyon 05-27 Vitamin D 25-OH 29.8 ng/mL Normal [facility] Comment on above: Result Comment: [...] L509.8000, L3100.5400, L501.9985, L3890.6005, L803.3000, L3890.6300, L3100.5170 ####[facility] [address] [place], [id number] CNOVon 01-12-2024 CNOV Office Visit (UCWSTR ) -- BARBY CABALLERO ([id number]) 1990 F Date Time Provider Department 01/12/24 10:30 AM GINA SAHU [facility] During your visit today, we recorded the following information about you: Temperature Pulse Respiration Blood pressure 97.9 degrees 134/minute 20/minute 118/78 Weight 120.3 kg Gina Sahu, [facility] 01/12/2024 11:22 AM Signed CC: Patient presents [...] Patient agreeable to treatment plan. Gina Sahu APRN.[employer] Allergies As of Date: 01/12/2024 (No Active [...] MOUTH EVERY (more content not included)... Normal [facility] TSH W/FT4 REFLEXon TSH 1.264 uIU/mL Normal 0.550-4.780 [facility] Comment on above: Performed By: #### T SHQR #### [facility] (DEFAULT) [address] [id number] PROGESTERONEon 04-03-2023 Progesterone 15.64 ng/mL Normal [facility] Comment on above: Result Comment: This test is not recommended for patients receiving DHEA due to cross reactivity of DHEA S in the progesterone assay. Reference Range: Males: 0.28-1.22 ng/mL Females: Follicular phase 0-1.40 ng/mL Luteal phase 3.34-25.56 ng/mL Midluteal phase 4.44-28.03 ng/mL Postmenopausal 0-0.73 ng/mL Performed By: #### P DIANDRA #### [facility] (DEFAULT) [address] [place] [address] MAMMO DIAGNOSTIC WITH ADRIANA B ILATERALon 01-09-2023 MAMMO DIAGNOSTIC WITH ADRIANA BILATERAL EXAM: MAMMO DIAGNOSTIC WITH ADRIANA BILATERAL, US BREAST LIMITED UNILATERAL RIGHT, 01/09/2023 09:20 AM (accession [id number]), 01/09/2023 09:31 AM (accession [id number]) CLINICAL INDICATIONS: The patient reports right upper [...] Recommendation: Clinical correlation/management. Recommendation Laterality: Right Normal [facility] MG Breast - bilateral Diagno sticon 01-09-2023 IMPRESSION: 1. No suspicious mammographic or sonographic findings in the right breast to explain symptoms. 2. No suspicious mammographic findings in the left breast. BI-RADS: 1: Negative Recommendation: Clinical correlation/management. Recommendation Laterality: Right OLOGY EXAM: MAMMO DIAGNOST IC WITH ADRIANA BILATERAL, US BREAST LIMITED UNILATERAL RIGHT, 01/09/2023 09:20 AM (accession [id number]), 01/09/2023 09:31 AM (accession [id number]) CLINICAL INDICATIONS: The patient reports right upper [...] LIMITED UNILATERAL RIGHT, 01/09/2023 09:20 AM (accession [id number]), 01/09/2023 09:31 AM (accession [id number]) CLINICAL INDICATIONS: The patient reports right upper [...] Negative Recommendation: Clinical correlation/management. Recommendation Laterality: Right [facility] Radiology Study observation (narrative) [facility] MG Breast - bilateral Diagno sticOrdered By: Nettie Trejo on 01-09-2023 [facility] US BREAST LIMITED UNILATERAL RIGHTon 01-09-2023 US BREAST LIMITED UNILATERAL RIGHT EXAM: MAMMO DIAGNOSTIC WITH ADRIANA BILATERAL, US BREAST LIMITED UNILATERAL RIGHT, 01/09/2023 09:20 AM (accession [id number]), 01/09/2023 09:31 AM (accession [id number]) CLINICAL INDICATIONS: The patient reports right upper [...] Recommendation: Clinical correlation/management. Recommendation Laterality: Right Normal [facility] HEMOGLOBIN [id number] By: Sa fred Carbajal on 09-27-2022 Average glucose Estimated from glycated hemoglobin (Bld) [Mass/Vol] 105 mg/dL [facility] HbA1c (Bld) [Mass fraction] 5.3 % 4.7 - 5.6 % [facility] HEMOGLOBIN A1Con 09-27-2022 Glucose [Mass/Vol] 105 mg/dL Normal [facility] Comment on above: Performed By: #### A 1CB #### [facility] (DEFAULT) [address] [address] HbA1c (Bld) [Mass fraction] 5.3 % Normal 4.7-5.6 [facility] Comment on above: Performed By: #### A 1CB #### [facility] (DEFAULT) [address] [address] LIPID PANEL WITH REFLEX TO M DEE LDLon 09-27-2022 Calculated LDL Cholesterol 51 mg/dL Normal 0-99 [facility] Comment on above: Result Comment: [<10 0 mg/dL: Optimal] [100-129 mg/dL: Near Optimal] [130-159 mg/dL: Borderline High] [160-189 mg/dL: High] [>189 mg/dL: Very High] Performed By: #### L IPDR #### [facility] (DEFAULT) [address] [place] [address] Cholesterol [Mass/Vol] 122 mg/dL Normal <200 [facility] Comment on above: Result Comment: [<20 0 mg/dL: Desirable] [200-239 mg/dL: Borderline High] [>239 mg/dL: High] Performed By: #### L IPDR #### [facility] (DEFAULT) [address] [address] Cholesterol in HDL [Mass/Vol] 50 mg/dL Normal >=40 [facility] Comment on above: Result Comment: [<40 mg/dL: Low (High Risk)] [>59 mg/dL: High (Low Risk)] Performed By: #### L IPDR #### [facility] (DEFAULT) [address] [address] Non HDL Cholesterol 72 mg/dL Normal <130 [facility] Comment on above: Performed By: #### L IPDR #### [facility] (DEFAULT) [address] [address] Total Cholesterol/HDL Ratio 2.4 Normal <4.5 [facility] Comment on above: Performed By: #### L IPDR #### [facility] (DEFAULT) [address] [place] [address] Triglyceride [Mass/Vol] 104 mg/dL Normal <150 [facility] Comment on above: Result Comment: [<15 0 mg/dL: Desirable] [150-199 mg/dL: Borderline] [200-499 mg/dL: High] [>500 mg/dL: Very High] Performed By: #### L IPDR #### [facility] (DEFAULT) [address] [place] [address] Cholesterol [Mass/Vol] 122 mg/dL NINF - 200 mg/dL [facility] Comment on above: [<200 mg/dL: Desirab le] [200-239 mg/dL: Borderline High] [>239 mg/dL: High] Cholesterol in HDL [Mass/Vol] 50 mg/dL 40 - PINF mg/dL [facility] Comment on above: [<40 mg/dL: Low (Hig h Risk)] [>59 mg/dL: High (Low Risk)] Cholesterol in HDL [Mass/Vol] 72 mg/dL NINF - 130 mg/dL [facility] Cholesterol in LDL [Mass/Vol] 51 mg/dL 0 - 99 mg/dL [facility] Comment on above: [<100 mg/dL: Optimal ] [100-129 mg/dL: Near Optimal] [130-159 mg/dL: Borderline High] [160-189 mg/dL: High] [>189 mg/dL: Very High] Cholesterol.total/Cho lesterol in HDL [Mass ratio] 2.4 {ratio} NINF - 4.5 [facility] Interpretation and review of laboratory results Normal [facility] Triglyceride [Mass/Vol] 104 mg/dL NINF - 150 mg/dL [facility] Comment on above: [<150 mg/dL: Desirab le] [150-199 mg/dL: Borderline] [200-499 mg/dL: High] [>500 mg/dL: Very High] [facility] PROLACTINon 09-27-2022 Prolactin [Mass/Vol] 4.4 ng/mL [facility] Comment on above: Reference Range: Females Non: 2.8-29.2 ng/mL : 9.7-208.5 ng/mL Postmenopausal: 1.8-20.3 ng/mL <2 years: 3.3-14.7 ng/mL 2-5 years: 1.0-12.8 ng/mL 6-10 years: 1.2-11.4 ng/mL 11-17 years: 1.4-14.3 ng/mL Males: 2.1-17.7 ng/mL [facility] Prolactin 4.4 ng/mL Normal [facility] Comment on above: Result Comment: Andriy perkins Range: Females Non: 2.8-29.2 ng/mL : 9.7-208.5 ng/mL Postmenopausal: 1.8-20.3 ng/mL <2 years: 3.3-14.7 ng/mL 2-5 years: 1.0-12.8 ng/mL 6-10 years: 1.2-11.4 ng/mL 11-17 years: 1.4-14.3 ng/mL Males: 2.1-17.7 ng/mL Performed By: #### P ROL, TSHQR #### [facility] (DEFAULT) [address] [place] [address] TSH W/FT4 REFLEXon Interpretation and review of laboratory results Normal [facility] TSH Qn 1.680 m[IU]/L [facility] TSH 1.680 uIU/mL Normal 0.550-4.780 [facility] Comment on above: Performed By: #### P ROL, TSHQR #### [facility] (DEFAULT) [address] [place] [address] CYTOLOGY-COATER HELPER, 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on 09-05-2022 ---Cytologic Interpretation--- Normal [facility] Comment on above: 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 Result Comment: ? Ne gative for Intraepithelial Lesion or Malignancy ? HPV Results Reported in Attached Report This Pap Test was imaged with the assistance of the [employer] ThinPrep Imaging System and screened by a Highway Maintenance Supervisor. 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 Result Comment: Gyne cologic Cytology Report Case: [id number] Authorizing Provider: Faith Starkey MD Collected: 09/05/2022 03:07 PM Ordering Location: Obstetrics and Gynecology Received: 09/05/2022 04:39 PM [facility] [place] First Screen: Tammy Alberto Rescreen: Monika Tenorio Specimen: Cervical/Endocervical, ThinPrep, Cervical/Endocervical Performed By: #### T HINP #### [facility] (DEFAULT) [address] [address] HPV Reflex? 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 Result Comment: For Immediate Release [facility] 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 Performed By: #### T HINP #### [facility] (DEFAULT) [address] [address] PAP METHOD ThinPrep Normal [facility] Comment on above: 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 Performed By: #### T HINP #### [facility] (DEFAULT) [address] [address] HPV WITH GENOTYPING (WITH VIRGILIO FARRIS)on 09-05-2022 HPV Genotype 16 Negative Normal Negative [facility] Comment on above: 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 HPV DNA detection performed by Real-Time PCR. The assay detects HPV 16, 18, 31, 33, 35, 39, 45, 51, 52, 56, 58, 59, 66, 68.Testing performed at [facility]. Performed By: #### H PVGCO #### [facility] (DEFAULT) [address] [address] HPV Genotype 18 Negative Normal Negative [facility] Comment on above: 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 HPV DNA detection performed by Real-Time PCR. The assay detects HPV 16, 18, 31, 33, 35, 39, 45, 51, 52, 56, 58, 59, 66, 68.Testing performed at [facility]. Performed By: #### H PVGCO #### [facility] (DEFAULT) [address] [address] HPV Other High Risk Types, PCR Negative Normal Negative [facility] Comment on above: 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 HPV DNA detection performed by Real-Time PCR. The assay detects HPV 16, 18, 31, 33, 35, 39, 45, 51, 52, 56, 58, 59, 66, 68.Testing performed at [facility]. Performed By: #### H PVGCO #### [facility] (DEFAULT) [address] [address] COVID-19, MOLECULARon 2020 SARS-CoV-2 (COVID-19) RNA CONCHITA+probe Ql (Unsp spec) Not detected Normal Not Detected [facility] Comment on above: Result Comment: This test was performed under the FDA's Emergency Use Authorization (EUA). Testing was performed using the Xpert?? Xpress SARS-CoV-2/Flu/RSV plus RT-PCR Placely assay on the [employer] Xpress System. This test has not been approved for use in asymptomatic patients and its performance in this patient population has not been evaluated. Negative results do not rule out the presence of SARS-CoV-2/COVID-19. Fact sheets for this EUA can be found at the following links: For Healthcare Providers: https://www.fda.gov/media/408847/download For Patients: https://www.fda.gov/Semanticator/333728/download Performed By: #### L [id number] #### [facility] [address] [address] Xiang Chahal M.D. [id number] CT ABDOMEN PELVIS WITH IV CO NTRAST [...] of significance including no evidence for appendicitis. [employer] Workstation ID: [id number] Dictated by: DECLAN MESSER on SatSep 15, 2021 12:10:30 PM EST Transcribed by: CARLOS WEATHERS on SatSep 15, 2021 12:18:43 PM EST Finalized by: DECLAN MESSER on SatSep 15, 2021 2:13:51 PM EST Normal [facility] Comment on above: Order Comment: [...] SatSep 15, 2021 3:56:08 PM EST Normal [facility] Comment on above: Order Comment: [...] SatSep 15, 2021 9:36:51 AM EST Normal [facility] Comment on above: Order Comment: US Ga llbladder Injury/Trauma or Illness?:Illness/Other How long have you had these symptoms (acute/chronic)?:Acute Reason for exam?:RUQ pain History of cancer?:no Surgeries, chemotherapy, or radiation?:no Type of Exam?:Initial Additional signs and symptoms?:none COVID-19, MOLECULARon 2019 INTERNAL CONTROL (ABBOT ID) Pass Normal [facility] SARS-COV-2 (SPEARS ID) Not Detected Normal Not Detected [facility] POC COVID-19 Molecularon Internal Control Pass [facility] [place] [facility] Interpretation and review of laboratory results Normal [facility] SARS-CoV-2 Not Detected Not Detected [facility] BMPon 07-29-2019 Anion gap [Moles/Vol] 19 mmol/L 10 - 2 0 mmol/L [facility] Calcium [Mass/Vol] 9.6 mg/dL 8.4 - 10. 2 mg/dL [facility] Chloride [Moles/Vol] 105 mmol/L 98 - 10 8 mmol/L [facility] Creatinine [Mass/Vol] 0.62 mg/dL 0.4 - 1.1 mg/dL [facility] GFR/1.73 sq M predicted among non-blacks MDRD (S/P/Bld) [Vol rate/Area] The eGFR should be used for monitoring renal function only and not for medication dosing. [facility] GFR/1.73 sq M.predicted CKD-EPI (S/P/Bld) [Vol rate/Area] 122 >=60 mL/min/1.73 m2 [facility] Glucose [Mass/Vol] 104 mg/dL High 65 - 99 mg/dL [facility] HCO3 [Moles/Vol] 22 mmol/L 21 - 32 mmol/L [facility] Interpretation and review of laboratory results Abnormal [facility] Potassium [Moles/Vol] 4.2 mmol/L 3.5 - 5.1 mmol/L [facility] Sodium [Moles/Vol] 142 mmol/L 135 - 145 mmol/L [facility] Urea nitrogen [Mass/Vol] 11 mg/dL 8 - 25 mg/dL [facility] Urea nitrogen/Creatinine [Mass ratio] 17.7 mg/mg [facility] CBC WITH AUTO DIFFERENTIALon 07-29-2019 Basophils (Bld) [#/Vol] 0.03 10*3/uL [facility] Basophils/100 WBC (Bld) 0.3 % [facility] Eosinophils (Bld) [#/Vol] 0.14 10*3/uL [facility] Eosinophils/100 WBC (Bld) 1.2 % [facility] Erythrocyte distribution width (RBC) [Entitic vol] 13.9 % 11.6 - 14.8 % [facility] Hematocrit (Bld) [Volume fraction] 41.0 % 36 - 46 % [facility] Hemoglobin (Bld) [Mass/Vol] 13.0 g/dL 12 - 16 g/dL [facility] Interpretation and review of laboratory results Abnormal [facility] Lymphocytes (Bld) [#/Vol] 3.19 10*3/uL [facility] Lymphocytes/100 WBC (Bld) 28.0 % [facility] MCH (RBC) [Entitic mass] 26.3 pg 26 - 34 pg [facility] MCHC (RBC) [Mass/Vol] 31.7 g/dL 31 - 37 g/dL [facility] MCV (RBC) [Entitic vol] 82.8 fL 80 - 100 fL [facility] Monocytes (Bld) [#/Vol] 0.45 10*3/uL [facility] Monocytes/100 WBC (Bld) 4.0 % [facility] Neutrophils (Bld) [#/Vol] 7.57 10*3/uL High [facility] Neutrophils/100 WBC (Bld) 66.5 % [facility] Nucleated RBC (Bld) [#/Vol] 0.00 10*3/uL [facility] Nucleated RBC/100 WBC (Bld) [Ratio] 0.0 % [facility] Platelet mean volume (Bld) [Entitic vol] 8.9 fL Low 9 - 15.5 fL [facility] Platelets (Bld) [#/Vol] 353 10*3/uL [facility] RBC (Bld) [#/Vol] 4.95 10*6/uL [facility] WBC (Bld) [#/Vol] 11.38 10*3/uL High [facility] Hepatic Function Panel (LFT) on 07-29-2019 Albumin [Mass/Vol] 4.3 g/dL 3.2 - 5.2 g/dL [facility] ALP [Catalytic activity/Vol] 83 U/L 40 - 140 U/L [facility] ALT [Catalytic activity/Vol] 19 U/L 0 - 40 U/L [facility] AST [Catalytic activity/Vol] 16 U/L 0 - 45 U/L [facility] Bilirubin [Mass/Vol] mg/dL 0 - 1.3 mg/dL [facility] Bilirubin.conjugated [Mass/Vol] mg/dL 0 - 0.4 mg/dL [facility] Protein [Mass/Vol] 7.6 g/dL 6 - 8 g/dL [facility] Lipaseon 07-29-2019 Lipase [Catalytic activity/Vol] 30 U/L 15 - 65 U/L [facility] Otheron 07-29-2019 Interpretation and review of laboratory results Normal [facility] Interpretation and review of laboratory results Normal [facility] POC Urinalysis Dipstickon Bilirubin Ql (U) Negative Negative [facility] [place] [facility] Glucose Ql (U) Negative Normal, Negative mg/dL [facility] Hemoglobin Ql (U) Negative Negative [facility] Ketones Ql (U) Negative Negative mg/dL [facility] Leukocyte esterase Test strip Ql (U) Negative Negative [facility] Nitrite Ql (U) Negative Negative [facility] pH (U) 5.0 [pH] [facility] Protein Ql (U) Negative Negative mg/dL [facility] Urobilinogen Qn (U) Negative <2.0, 0. 2, Normal, Negative, 1.0, 2.0, <1.0 mg/dL [facility] POC Urine Pregnancyon 2018 HCG ( test) Ql (U) Negative Negative [facility] Internal Control Pass [facility] [place] [facility] US ABDOMEN LIMITED STUDYon 1 1. There is a small 4 mm echogenic focus in the nondependent portion of the gallbladder wall which may reflect a small amount of adherent gallbladder sludge or a small benign cholesterol polyp. No further follow-up is required. 2. Otherwise unremarkable right upper quadrant abdominal ultrasound. [employer] Workstation ID: [id number] [facility] EXAMINATION: US ABDO MEN LIMITED STUDY [...] free fluid in the right upper quadrant. [facility] Interface, Rad In Fu ji Speechq [...] quadrant abdominal ultrasound. [employer] Workstation ID: [id number] [facility] Urinalysison 07-29-2019 Specific gravity (U) [Rel density] 1.005 [facility] BMPon 03-19-2019 Anion gap [Moles/Vol] 17 mmol/L 10 - 2 0 mmol/L [facility] Calcium [Mass/Vol] 9.9 mg/dL 8.4 - 10. 2 mg/dL [facility] Chloride [Moles/Vol] 104 mmol/L 98 - 10 8 mmol/L [facility] Creatinine [Mass/Vol] 0.60 mg/dL 0.4 - 1.1 mg/dL [facility] GFR/1.73 sq M predicted among non-blacks MDRD (S/P/Bld) [Vol rate/Area] The eGFR should be used for monitoring renal function only and not for medication dosing. [facility] GFR/1.73 sq M.predicted CKD-EPI (S/P/Bld) [Vol rate/Area] 124 >=60 mL/min/1.73 m2 [facility] Glucose [Mass/Vol] 115 mg/dL High 65 - 99 mg/dL [facility] HCO3 [Moles/Vol] 23 mmol/L 21 - 32 mmol/L [facility] Interpretation and review of laboratory results Abnormal [facility] Potassium [Moles/Vol] 3.9 mmol/L 3.5 - 5.1 mmol/L [facility] Sodium [Moles/Vol] 140 mmol/L 135 - 145 mmol/L [facility] Urea nitrogen [Mass/Vol] 9 mg/dL 8 - 25 mg/dL [facility] Urea nitrogen/Creatinine [Mass ratio] 15.0 mg/mg [facility] CBC WITH AUTO DIFFERENTIALon 03-19-2019 Basophils (Bld) [#/Vol] 0.04 10*3/uL [facility] Basophils/100 WBC (Bld) 0.2 % [facility] Eosinophils (Bld) [#/Vol] 0.35 10*3/uL [facility] Eosinophils/100 WBC (Bld) 2.1 % [facility] Erythrocyte distribution width (RBC) [Entitic vol] 14.0 % 11.6 - 14.8 % [facility] Hematocrit (Bld) [Volume fraction] 41.7 % 36 - 46 % [facility] Hemoglobin (Bld) [Mass/Vol] 13.4 g/dL 12 - 16 g/dL [facility] Interpretation and review of laboratory results Abnormal [facility] Lymphocytes (Bld) [#/Vol] 5.33 10*3/uL High [facility] Lymphocytes/100 WBC (Bld) 31.6 % [facility] MCH (RBC) [Entitic mass] 26.2 pg 26 - 34 pg [facility] MCHC (RBC) [Mass/Vol] 32.1 g/dL 31 - 37 g/dL [facility] MCV (RBC) [Entitic vol] 81.4 fL 80 - 100 fL [facility] Monocytes (Bld) [#/Vol] 0.93 10*3/uL High [facility] Monocytes/100 WBC (Bld) 5.5 % [facility] Neutrophils (Bld) [#/Vol] 10.22 10*3/uL High [facility] Neutrophils/100 WBC (Bld) 60.6 % [facility] Nucleated RBC (Bld) [#/Vol] 0.00 10*3/uL [facility] Nucleated RBC/100 WBC (Bld) [Ratio] 0.0 % [facility] Platelet mean volume (Bld) [Entitic vol] 8.7 fL Low 9 - 15.5 fL [facility] Platelets (Bld) [#/Vol] 418 10*3/uL High [facility] RBC (Bld) [#/Vol] 5.12 10*6/uL [facility]alth WBC (Bld) [#/Vol] 16.87 10*3/uL [facility] D-DIMER, QUANTITATIVEon 03-01 Fibrin D-dimer FEU (PPP) [Mass/Vol] 0.42 0.27 - 0.49 mcg/mL FEU [facility] Interpretation and review of laboratory results Normal [facility] A D-dimer concentrat ion of <0.5 micrograms per milliliter FEU is considered a low probability for pulmonary embolus (PE) and deep venous thrombosis (DVT). Results of this test should always be interpreted in conjunction with the patient's medical history,clinical presentation, and other findings. Clinical diagnosis should not be based on the results of the D-dimer alone. [facility] Hepatic Function Panel (LFT) on 03-19-2019 Albumin [Mass/Vol] 4.4 g/dL 3.2 - 5.2 g/dL [facility] ALP [Catalytic activity/Vol] 109 U/L 40 - 140 U/L [facility] ALT [Catalytic activity/Vol] 17 U/L 0 - 40 U/L [facility] AST [Catalytic activity/Vol] 16 U/L 0 - 45 U/L [facility] Bilirubin [Mass/Vol] mg/dL 0 - 1.3 mg/dL [facility] Bilirubin.conjugated [Mass/Vol] mg/dL 0 - 0.4 mg/dL [facility] Protein [Mass/Vol] 8.0 g/dL 6 - 8 g/dL [facility]th Lipaseon 03-19-2019 Lipase [Catalytic activity/Vol] 39 U/L 15 - 65 U/L [facility] Otheron 03-19-2019 Extra Tube Hold for add-ons. [facility] Comment on above: Auto resulted. Interpretation and review of laboratory results Normal [facility] POC Urine Pregnancyon 2018 HCG ( test) Ql (U) Negative Negative [facility] Internal Control Pass [facility] Interpretation and review of laboratory results Normal [facility] Specific gravity (U) [Rel density] 1.005 [facility] TROPONINon 03-19-2019 Troponin T.cardiac [Mass/Vol] ug/L <=14 ng/L [facility] Troponin T.cardiac [Mass/Vol] No biomarker evidence of cardiac injury. [facility] Troponin T.cardiac [Mass/Vol] ug/L <=14 ng/L [facility] Troponin T.cardiac [Mass/Vol] Normal [facility] XR CHEST AP/PA AND LATon Mild perihilar and lingular/bibasilar atelectatic change with no other acute process. [facility] Workstation ID: [id number] [facility] Interface, Rad In [place] [...] other acute process. ASC/vrs Workstation ID: [id number] [facility] EXAMINATION: XR CHES T AP/PA AND [...] unremarkable. There is no acute osseous abnormality. [facility] ECG 12-LEADon 03-18-2019 Jennifer Fernandes 03/19/2019 3:41 AM EKG 12-lead Date/Time: 03/18/2019 11:49 PM Performed by: Laurent Duque MD Authorized by: Laurent Duque MD Interpreted by ED attending physician Comparison: not compared with previous ECG BPM: 103 Comments: Rate 103, sinus tachycardia, normal QRS interval, normal axis, no acute ST elevation, interpreted by [facility] Vital Signs Date Time Vital Sign Value Performing Clinician Facility 05-15-2025 13:15-0400 Body temperature 98.5 [degF] Dr. Steffen Eisenberg MD Work Phone: [facility] 05-15-2025 13:15-0400 Diastolic blood pressure 62 mm[Hg] Dr. Steffen Eisenberg MD Work Phone: [facility] 05-15-2025 13:15-0400 Heart rate 107 /min Dr. Steffen Eisenberg MD Work Phone: [facility] 05-15-2025 13:15-0400 Respiratory rate 16 /min Dr. Steffen Eisenberg MD Work Phone: [facility] 05-15-2025 13:15-0400 SaO2% (BldA) [Mass fraction] 98 % Dr. Steffen Eisenberg MD Work Phone: [facility] 05-15-2025 13:15-0400 Systolic blood pressure 115 mm[Hg] Dr. Steffen Eisenberg MD Work Phone: [facility] 05-12-2025 06:26-0400 Body height 157.[address] Steffen Eisenberg MD Work Phone: [facility] 05-12-2025 06:26-0400 Body mass index (BMI) [Ratio] 48.7 kg/m2 Dr. Steffen Eisenberg MD Work Phone: [facility] 05-12-2025 06:26-0400 Body weight [address] Steffen Eisenberg MD Work Phone: [facility] 05-06-2025 14:10-0400 Body height 157.[address] Steffen Eisenberg MD Work Phone: [facility] 05-06-2025 14:09-0400 Body mass index (BMI) [Ratio] 49.6 kg/m2 Dr. Steffen Eisenberg MD Work Phone: [facility] 05-06-2025 14:09-0400 Body weight [address] Steffen Eisenberg MD Work Phone: [facility] 05-06-2025 14:09-0400 Diastolic blood pressure 84 mm[Hg] Dr. Steffen Eisenberg MD Work Phone: [facility] 05-06-2025 14:09-0400 Systolic blood pressure 125 mm[Hg] Dr. Steffen Eisenberg MD Work Phone: [facility] 04-28-2025 14:05-0400 Body height 157.[address] Steffen Eisenberg MD Work Phone: [facility] 04-28-2025 14:03-0400 Body mass index (BMI) [Ratio] 48.5 kg/m2 Dr. Steffen Eisenberg MD Work Phone: [facility] 04-28-2025 14:03-0400 Body weight 120.[address] Steffen Eisenberg MD Work Phone: [facility] 04-28-2025 14:03-0400 Diastolic blood pressure 86 mm[Hg] Dr. Steffen Eisenberg MD Work Phone: [facility] 04-28-2025 14:03-0400 Systolic blood pressure 123 mm[Hg] Dr. Steffen Eisenberg MD Work Phone: [facility] 04-20-2025 14:13-0400 Body height 157.[address] Steffen Eisenberg MD Work Phone: [facility] 04-20-2025 14:13-0400 Body mass index (BMI) [Ratio] 49 kg/m2 Dr. Steffen Eisenberg MD Work Phone: [facility] 04-20-2025 14:13-0400 Body weight 121.[address] Steffen Eisenberg MD Work Phone: [facility] 04-20-2025 14:13-0400 Diastolic blood pressure 81 mm[Hg] Dr. Steffen Eisenberg MD Work Phone: [facility] 04-20-2025 14:13-0400 Systolic blood pressure 116 mm[Hg] Dr. Steffen Eisenberg MD Work Phone: [facility] 04-19-2025 10:29-0400 Heart rate 115 /min Dr. Steffen Eisenberg MD Work Phone: [facility] 04-19-2025 10:29-0400 SaO2% (BldA) [Mass fraction] 96 % Dr. Steffen Eisenberg MD Work Phone: [facility] 04-19-2025 10:03-0400 Body height 157.[address] Steffen Eisenberg MD Work Phone: [facility] 04-19-2025 10:03-0400 Body mass index (BMI) [Ratio] 49.2 kg/m2 Dr. Steffen Eisenberg MD Work Phone: [facility] 04-19-2025 10:03-0400 Body weight 122.[address] Steffen Eisenberg MD Work Phone: [facility] 04-19-2025 09:57-0400 Body temperature 98.4 [degF] Dr. Steffen Eisenberg MD Work Phone: [facility] 04-19-2025 09:57-0400 Respiratory rate 20 /min Dr. Steffen Eisenberg MD Work Phone: [facility] 04-19-2025 09:56-0400 Diastolic blood pressure 80 mm[Hg] Dr. Steffen Eisenberg MD Work Phone: [facility] 04-19-2025 09:56-0400 Systolic blood pressure 132 mm[Hg] Dr. Steffen Eisenberg MD Work Phone: [facility] 04-07-2025 10:00-0400 Body height 157.[address] Steffen Eisenberg MD Work Phone: [facility] 04-07-2025 10:00-0400 Body mass index (BMI) [Ratio] 49 kg/m2 Dr. Steffen Eisenberg MD Work Phone: [facility] 04-07-2025 10:00-0400 Body weight 121.[address] Steffen Eisenberg MD Work Phone: [facility] 04-07-2025 10:00-0400 Diastolic blood pressure 80 mm[Hg] Dr. Steffen Eisenberg MD Work Phone: [facility] 04-07-2025 10:00-0400 Systolic blood pressure 119 mm[Hg] Dr. Steffen Eisenberg MD Work Phone: [facility] 03-26-2025 14:17-0400 Body height 157.[address] Steffen Eisenberg MD Work Phone: [facility] 03-26-2025 14:15-0400 Body mass index (BMI) [Ratio] 48.9 kg/m2 Dr. Steffen Eisenberg MD Work Phone: [facility] 03-26-2025 14:15-0400 Body weight 121.[address] Steffen Eisenberg MD Work Phone: [facility] 03-26-2025 14:15-0400 Diastolic blood pressure 82 mm[Hg] Dr. Steffen Eisenberg MD Work Phone: [facility] 03-26-2025 14:15-0400 Systolic blood pressure 131 mm[Hg] Dr. Steffen Eisenberg MD Work Phone: [facility] 03-10-2025 14:28-0400 Body height 157.[address] Steffen Eisenberg MD Work Phone: [facility] 03-10-2025 14:24-0400 Body mass index (BMI) [Ratio] 48.5 kg/m2 Dr. Steffen Eisenberg MD Work Phone: [facility] 03-10-2025 14:24-0400 Body weight 120.[address] Steffen Eisenberg MD Work Phone: [facility] 03-10-2025 14:24-0400 Diastolic blood pressure 76 mm[Hg] Dr. Steffen Eisenberg MD Work Phone: [facility] 03-10-2025 14:24-0400 Systolic blood pressure 110 mm[Hg] Dr. Steffen Eisenberg MD Work Phone: [facility] 02-26-2025 08:45-0400 Body height 157.[address] Steffen Eisenberg MD Work Phone: [facility] 02-26-2025 08:45-0400 Body mass index (BMI) [Ratio] 48.3 kg/m2 Dr. Steffen Eisenberg MD Work Phone: [facility] 02-26-2025 08:45-0400 Body weight 119.[address] Steffen Eisenberg MD Work Phone: [facility] 02-26-2025 08:45-0400 Diastolic blood pressure 66 mm[Hg] Dr. Steffen Eisenberg MD Work Phone: [facility] 02-26-2025 08:45-0400 Systolic blood pressure 102 mm[Hg] Dr. Steffen Eisenberg MD Work Phone: [facility] 01-29-2025 10:30-0400 Body mass index (BMI) [Ratio] 47.7 kg/m2 Dr. Steffen Eisenberg MD Work Phone: [facility] 01-29-2025 10:30-0400 Body weight 118.[address] Steffen Eisenberg MD Work Phone: [facility] 01-29-2025 10:30-0400 Diastolic blood pressure 81 mm[Hg] Dr. Steffen Eisenberg MD Work Phone: [facility] 01-29-2025 10:30-0400 Systolic blood pressure 114 mm[Hg] Dr. Steffen Eisenberg MD Work Phone: [facility] 01-01-2025 10:10-0400 Body mass index (BMI) [Ratio] 47.9 kg/m2 Dr. Steffen Eisenberg MD Work Phone: [facility] 01-01-2025 10:10-0400 Body weight 118.[address] Steffen Eisenberg MD Work Phone: [facility] 01-01-2025 10:10-0400 Diastolic blood pressure 82 mm[Hg] Dr. Steffen Eisenberg MD Work Phone: [facility] 01-01-2025 10:10-0400 Systolic blood pressure 125 mm[Hg] Dr. Steffen Eisenberg MD Work Phone: [facility] 12-03-2024 13:32-0500 Body mass index (BMI) [Ratio] 47.9 kg/m2 Dr. Steffen Eisenberg MD Work Phone: [facility] 12-03-2024 13:32-0500 Body weight 119.[address] Steffen Eisenberg MD Work Phone: [facility] 12-03-2024 13:32-0500 Diastolic blood pressure 82 mm[Hg] Dr. Steffen Eisenberg MD Work Phone: [facility] 12-03-2024 13:32-0500 Systolic blood pressure 120 mm[Hg] Dr. Steffen Eisenberg MD Work Phone: [facility] 11-10-2024 22:23-0500 Body temperature 98.2 [degF] Dr. Steffen Eisenberg MD Work Phone: [facility] 11-10-2024 22:23-0500 Diastolic blood pressure 97 mm[Hg] Dr. Steffen Eisenberg MD Work Phone: [facility] 11-10-2024 22:23-0500 Heart rate 115 /min Dr. Steffen Eisenberg MD Work Phone: [facility] 11-10-2024 22:23-0500 Respiratory rate 18 /min Dr. Steffen Eisenberg MD Work Phone: [facility] 11-10-2024 22:23-0500 SaO2% (BldA) [Mass fraction] 99 % Dr. Steffen Eisenberg MD Work Phone: [facility] 11-10-2024 22:23-0500 Systolic blood pressure 139 mm[Hg] Dr. Steffen Eisenberg MD Work Phone: [facility] 11-10-2024 18:31-0500 Body mass index (BMI) [Ratio] 47.4 kg/m2 Dr. Steffen Eisenberg MD Work Phone: [facility] 11-10-2024 18:31-0500 Body weight 117.[address] Steffen Eisenberg MD Work Phone: [facility] 11-05-2024 14:27-0500 Body mass index (BMI) [Ratio] 47.5 kg/m2 Dr. Steffen Eisenberg MD Work Phone: [facility] 11-05-2024 14:27-0500 Body weight 117.[address] Steffen Eisenberg MD Work Phone: [facility] 11-05-2024 14:27-0500 Diastolic blood pressure 89 mm[Hg] Dr. Steffen Eisenberg MD Work Phone: [facility] 11-05-2024 14:27-0500 Systolic blood pressure 125 mm[Hg] Dr. Steffen Eisenberg MD Work Phone: [facility] 01-12-2024 11:02-0400 Body temperature 97.9 [degF] Gina Sahu APRN.[employer] Work Phone: [facility] 01-12-2024 11:02-0400 Body weight 120.3 kg Gina Sahu APRN.[employer] Work Phone: [facility] 01-12-2024 11:02-0400 Diastolic blood pressure 78 mm[Hg] Gina Sahu APRN.[employer] Work Phone: [facility] 01-12-2024 11:02-0400 Heart rate 134 /min Gina Sahu APRN.[employer] Work Phone: [facility] 01-12-2024 11:02-0400 Respiratory rate 20 /min Gina Sahu APRN.[employer] Work Phone: [facility] 01-12-2024 11:02-0400 SaO2% (BldA) [Mass fraction] 100 % Gina Sahu APRN.[employer] Work Phone: [facility] 01-12-2024 11:02-0400 Systolic blood pressure 118 mm[Hg] Gina Sahu APRN.[employer] Work Phone: [facility] 11-04-2023 11:53-0500 Body height 157.48 cm [facility] 11-04-2023 11:53-0500 Body mass index (BMI) [Ratio] 48.1 kg/m2 [facility] 11-04-2023 11:53-0500 Body weight 119.4 kg MARTA DEL VALLE [facility] 11-04-2023 11:53-0500 Diastolic blood pressure 89 mm[Hg] MARTA DEL VALLE [facility] 11-04-2023 11:53-0500 Systolic blood pressure 125 mm[Hg] [facility] 09-27-2022 09:42-0500 Body height 158.1 cm Marta Del Valle MD Work Phone: [facility] 09-27-2022 09:42-0500 Body mass index (BMI) [Ratio] 42.84 kg/m2 Marta Del Valle MD Work Phone: [facility] 09-27-2022 09:42-0500 Body weight 107.11 kg Marta Del Valle MD Work Phone: [facility] 09-27-2022 09:42-0500 Diastolic blood pressure 72 mm[Hg] Marta Del Valle MD Work Phone: [facility] 09-27-2022 09:42-0500 Heart rate 113 /min Marta Del Valle MD Work Phone: [facility] 09-27-2022 09:42-0500 SaO2% (BldA) [Mass fraction] 99 % Marta Del Valle MD Work Phone: [facility] 09-27-2022 09:42-0500 Systolic blood pressure 114 mm[Hg] Marta Del Valle MD Work Phone: [facility] 09-05-2022 13:25-0500 Body height 157.5 cm Faith Starkey MD Work Phone: [facility] 09-05-2022 13:25-0500 Body mass index (BMI) [Ratio] 42.43 kg/m2 Faith Starkey MD Work Phone: [facility] 09-05-2022 13:25-0500 Body weight 105.23 kg Faith Starkey MD Work Phone: 6(251)152-947871 [address] 09-05-2022 13:25-0500 Diastolic blood pressure 70 mm[Hg] Faith Starkey MD Work Phone: 9(303)287-813071 [address] 09-05-2022 13:25-0500 Systolic blood pressure 124 mm[Hg] Faith Starkey MD Work Phone: 7(562)637-651321 [place] [address] 05-17-2021 13:53-0400 Body height 157.5 cm Faith Starkey MD Work Phone: 5(176)383-777521 [place] [address] 05-17-2021 13:53-0400 Body mass index (BMI) [Ratio] 44.45 kg/m2 Faith Starkey MD Work Phone: 5(251)013-741221 [place] [address] 05-17-2021 13:53-0400 Body weight 110.22 kg Faith Starkey MD Work Phone: 3(515)915-897321 [place] [address] 05-17-2021 13:53-0400 Diastolic blood pressure 78 mm[Hg] Faith Starkey MD Work Phone: 0(405)006-416171 [address] 05-17-2021 13:53-0400 Systolic blood pressure 118 mm[Hg] Faith Starkey MD Work Phone: 6(707)959-770921 [place] [address] 07-27-2020 10:34-0400 BP Diastolic 88 mm[Hg] Marli Thompson [facility] 07-27-2020 10:34-0400 BP Systolic 132 mm[Hg] Marli Thompson [facility] 07-27-2020 10:32-0400 BMI (Body Mass Index) 41.5 kg/m2 Marli Thompson [facility] 07-27-2020 10:32-0400 Body Temperature 99.19 [degF] Marli Jay [facility] 07-27-2020 10:32-0400 Body weight 102.92 kg Marli Thompson [facility] 07-27-2020 10:32-0400 Pulse (Heart Rate) 108 /min Marli Thompson [facility] 07-27-2020 10:32-0400 Pulse Oximetry 98 % Marli Thompson [facility] 07-27-2020 10:32-0400 Respiratory Rate 16 /min Marli Thompson [facility] 08-19-2019 10:49-0500 BMI (Body Mass Index) 38.89 kg/m2 [facility]-19-2019 10:49-0500 Body Temperature 98.2 [degF] [facility] 08-19-2019 10:49-0500 Body weight 96.44 kg [facility] 08-19-2019 10:49-0500 BP Diastolic 84 mm[Hg] [facility] 08-19-2019 10:49-0500 BP Systolic 135 mm[Hg] [facility] 08-19-2019 10:49-0500 Height 157.5 cm [facility] 08-19-2019 10:49-0500 Pulse (Heart Rate) 106 /min [facility] 07-29-2019 13:20-0400 Pulse (Heart Rate) 86 /min [facility] 07-29-2019 13:20-0400 Pulse Oximetry 98 % [facility] 07-29-2019 10:27-0400 BMI (Body Mass Index) 39.32 kg/m2 [facility] 07-29-2019 10:27-0400 Body Temperature 97.81 [degF] [facility] 07-29-2019 10:27-0400 Body weight 97.[address] [facility] 07-29-2019 10:27-0400 BP Diastolic 77 mm[Hg] [facility] 07-29-2019 10:27-0400 BP Systolic 126 mm[Hg] [facility] 07-29-2019 10:27-[address] [facility] 07-29-2019 10:27-0400 Respiratory Rate 18 /min [facility] 03-18-2019 23:29-0400 Body Temperature 98.91 [degF] Laurent [facility] 03-18-2019 23:29-0400 BP Diastolic 89 mm[Hg] Laurent [facility] 03-18-2019 23:29-0400 BP Systolic 149 mm[Hg] Laurent [facility] 03-18-2019 23:29-0400 Pulse (Heart Rate) 105 /min Laurent [facility] 03-18-2019 23:29-0400 Pulse Oximetry 100 % Laurent [facility] 03-18-2019 23:29-0400 Respiratory Rate 16 /min Laurent [facility] 03-18-2019 23:27-0400 BMI (Body Mass Index) 43.46 kg/m2 Laurent [facility] 03-18-2019 23:27-0400 Body weight 104.33 kg Laurent [facility] 03-18-2019 23:27-0400 Height 154.9 cm Laurent [facility] 02-18-2019 10:46-0400 BMI (Body Mass Index) 42.54 kg/m2 Janes Gutiérrez [facility] 02-18-2019 10:46-0400 Body Temperature 98.4 [degF] Janes Gutiérrez [facility] 02-18-2019 10:46-0400 Body weight 105.51 kg Janes Gutiérrez [facility] 02-18-2019 10:46-0400 BP Diastolic 96 mm[Hg] Janes Gutiérrez [facility] 02-18-2019 10:46-0400 BP Systolic 143 mm[Hg] Janes Gutiérrez [facility] 02-18-2019 10:46-0400 Height 157.5 cm Janes Gutiérrez [facility] 02-18-2019 10:46-0400 Pulse (Heart Rate) 109 /min Janes Gutiérrez [facility] 08-20-2018 08:52-0500 BMI (Body Mass Index) 41.77 kg/m2 Janes Gutiérrez [facility] 08-20-2018 08:52-0500 Body Temperature 98.1 [degF] Janes Gutiérrez [facility] 08-20-2018 08:52-0500 BP Diastolic 86 mm[Hg] Janes Gutiérrez [facility] 08-20-2018 08:52-0500 BP Systolic 120 mm[Hg] Janes Gutiérrez [facility] 08-20-2018 08:52-0500 Height 157.5 cm Janes Gutiérrez [facility] 08-20-2018 08:52-0500 Pulse (Heart Rate) 118 /min Janes Gutiérrez [facility] 08-20-2018 08:52-0500 Weight 103.6 kg Janes Gutiérrez [facility] Encounters Encounter Date Encounter Type Care Provider Facility Start: 05-26-2025 ambulatory Steffen Eisenberg Facility :[facility] Start: 05-15-2025 Non-patient / Non-visit Mariana Noe [facility] Start: 05-14-2025 Non-patient / Non-visit Mariana Coll [facility] Start: 05-13-2025 Non-patient / Non-visit Dr. Elena Lao MD -[facility] Start: 05-12-2025 Non-patient / Non-visit Dr. Mickey Bullock DO [facility] Start: 05-12-2025 ambulatory Steffen Eisenberg Facility :[facility] Start: 05-12-2025 End: 05-15-2025 Evaluation and management of inpatient Dr. Edel Bullock DO [facility] Work Phone: Start: 05-10-2025 End: 05[facility]10[facility]: 05-06-2025 End: 05-06-[address] Edel Bullock DO -[facility] Work Phone: Start: 05-06-2025 End: 05-06-[address] Steffen Eisenberg MD Work Phone: -[facility] Start: 05-06-2025 End: 05-06-2025 ambulatory EDEL ROCK [facility] Start: 05-03-2025 End: 05-03-2025 ambulatory SAAD BRADLEY [facility] Start: 04-29-2025 End: 04-29-2025 ambulatory EDEL ROCK [facility] Start: 04-28-2025 End: 04-28-[address] Steffen Eisenberg MD Work Phone: -Laboratory Specimen Start: 04-28-2025 End: 04-28-[address] Edel Bullock DO -Laboratory Specimen Work Phone: Start: 04-28-2025 End: 04-28-[address] Edel Bullock DO -[facility] Work Phone: Start: 04-28-2025 End: 04-28-[address] Steffen Eisenberg MD Work Phone: -[facility] Start: 04-28-2025 End: 04-28-2025 ambulatory Steffen Eisenberg Facility:[facility] Start: 04-26-2025 End: 04-26-2025 ambulatory EDEL ROCK [facility] Start: 04-22-2025 End: 04-22-[address] Steffen Eisenberg MD Work Phone: [facility] Start: 04-22-2025 End: 04-22-[address] Edel Bullock DO -[facility] Work Phone: Start: 04-22-2025 End: 04-22-2025 ambulatory Steffen Eisenberg Facility:[facility] Start: 04-20-2025 End: 04-20-[address] Apple Lao MD -[facility] Work Phone: Start: 04-20-2025 End: 04-20-[address] Steffen Eisenberg MD Work Phone: [facility] [facility] Start: 04-19-2025 ambulatory Steffen Eisenberg Facility :[facility] Start: 04-19-2025 Non-patient / Non-visit Kiley Whaley ms, CNM -[facility] Start: 04-19-2025 End: 04-19-2025 Patient encounter procedure Kiley Jain CNM -[facility] Work Phone: Start: 04-19-2025 End: 04-19-[address] Steffen Eisenberg MD Work Phone: -[facility] Start: 04-15-2025 End: 04-15-[address] Steffen Eisenberg MD Work Phone: -Ultrasound [facility] Start: 04-15-2025 End: 04-15-[address] Edel Bullock DO [facility] Work Phone: Start: 04-15-2025 End: 04-15-2025 ambulatory Steffen Eisenberg Facility:[facility] Start: 04-12-2025 End: 04-12-2025 ambulatory NO PRIMARY CARE [facility] Start: 04-08-2025 End: 04-08-2025 ambulatory NO PRIMARY CARE [facility] Start: 04-07-2025 End: 04-07-[address] Steffen Eisenberg MD Work Phone: [facility] Start: 04-07-2025 End: 04-07-[address] Edel Bullock DO [facility] Start: 04-07-2025 End: 04-07-[address] Edel Bullock DO [facility] Work Phone: Start: 04-07-2025 End: 04-07-[address] Steffen Eisenberg MD Work Phone: [facility] Start: 04-07-2025 End: 04-07-2025 ambulatory Steffen Eisenberg Facility:[facility] Start: 03-26-2025 End: 03-26-[address] Edel Bullock DO [facility] Work Phone: Start: 03-26-2025 End: 03-26-[address] Steffen Eisenberg MD Work Phone: [facility] Start: 03-10-2025 End: 03-10-[address] Steffen Eisenberg MD Work Phone: [facility] Work Phone: Start: 03-10-2025 End: 03-10-[address] Edel Bullock DO -Laboratory Specimen Work Phone: Start: 03-10-2025 End: 03-10-[address] Edel Bullock DO -[facility] Work Phone: Start: 03-10-2025 End: 03-10-[address] Steffen Eisenberg MD Work Phone: [facility] Work Phone: Start: 03-10-2025 End: 03-10-2025 ambulatory Steffen Eisenberg Facility:[facility] Start: 03-05-2025 End: 03-05-[address] Steffen Eisenberg MD Work Phone: [facility] Work Phone: Start: 03-05-2025 End: 03-05-2025 Patient encounter procedure Kiley Cristobal CNM -Laboratory Work Phone: Start: 03-05-2025 End: 03-05-2025 ambulatory Steffen Eisenberg Facility:[facility] Start: 02-26-2025 End: 02-26-[address] Apple Lao MD -[facility] Work Phone: Start: 02-26-2025 End: 02-26-[address] Steffen Eisenberg MD Work Phone: [facility] Work Phone: Start: 02-26-2025 End: 02-26-2025 ambulatory Steffen Eisenberg Facility:[facility] Start: 02-23-2025 End: 02-23-2025 ambulatory OSMANI D [facility] Start: 01-29-2025 End: 01-29-[address] Edel Bullock DO -[facility] Work Phone: Start: 01-29-2025 End: 01-29-2025 ambulatory Steffen [place] Facility:[facility] Start: 01-28-2025 End: 01-28-2025 ambulatory OSMANI LLANES [facility] Start: 01-01-2025 End: 01-01-[address] Apple Lao MD -[facility] Work Phone: Start: 01-01-2025 End: 01-01-2025 ambulatory Steffen [place] Facility:[facility] Start: 12-28-2024 End: 12-28-2024 ambulatory [facility] Start: 12-03-2024 End: 12-03-[address] Edel Bullock DO -[facility] Work Phone: Start: 12-03-2024 End: 12-03-2024 ambulatory Steffen [place] Facility:[facility] Start: 11-10-2024 End: 11-10-2024 Emergency department patient visit Dr. Ld Fermin MD -Emergency Department Work Phone: Start: 11-05-2024 Encounter for genera l adult medical examination without abnormal findings Steffen Faina [facility] Start: 11-05-2024 End: 11-05-[address] Edel Bullock DO -[facility] Work Phone: Start: 11-05-2024 End: 11-05-2024 ambulatory Steffen Faina Facility:[facility] Start: 11-03-2024 End: 11-03-2024 ambulatory Facility:[facility] Start: 11-03-2024 End: 11-03-2024 Telemedicine consultation with patient Demarcus Kristofer WRIGHT Work Phone: Telemedicine Comment on above: Viral URI with cough (Primary Dx) Start: 11-03-2024 End: 11-04-2024 ambulatory Steffen Faina Facility:[facility] Start: 10-23-2024 End: 10-23-2024 ambulatory Steffen Faina Facility:[facility] Start: 10-15-2024 End: 10-15-2024 ambulatory Steffen Faina Facility:[facility] Start: 10-09-2024 End: 10-09-2024 ambulatory Steffen [place] Facility:[facility] Start: 10-09-2024 End: 10-09-2024 ambulatory Steffen [place] Facility:[facility] Start: 10-02-2024 ambulatory Aida Shields Facility :[facility] Start: 10-02-2024 End: 10-02-2024 Subsequent hospital visit by physician Tucker Jimenez 2 [facility] Comment on above: Encounter for pregna ncy test, result positive ([facility]) Start: 10-02-2024 End: 10-02-2024 ambulatory [facility] Start: 09-25-2024 End: 09-25-2024 Subsequent hospital visit by physician Tucker Jimenez 2 [facility] Comment on above: Encounter for pregna ncy test, result positive ([facility]) Start: 09-25-2024 End: 09-25-2024 ambulatory [facility] Start: 09-15-2024 End: 09-15-2024 ambulatory [facility] Start: 09-11-2024 End: 09-11-2024 ambulatory [facility] Start: 09-09-2024 End: 09-09-2024 ambulatory [facility] Start: 09-04-2024 End: 09-04-2024 ambulatory STEFFEN [facility] Start: 08-25-2024 End: 08-25-2024 ambulatory [facility] Start: 08-21-2024 End: 08-21-2024 Subsequent hospital visit by physician Tucker Jimenez 1 [facility] Comment on above: Encounter for assist ed reproductive fertility procedure cycle Start: 08-21-2024 End: 08-21-2024 ambulatory [facility] Start: 08-14-2024 End: 08-14-2024 Subsequent hospital visit by physician Tucker Ultrasound 2 [facility] Comment on above: Encounter for assist ed reproductive fertility procedure cycle Start: 08-14-2024 End: 08-14-2024 ambulatory [facility] Start: 08-04-2024 End: 08-04-2024 ambulatory Steffen [place] Facility:[facility] Start: 07-29-2024 End: 07-29-2024 Jenifer Del Valle MD Work Phone: [facility] Start: 07-20-2024 End: 07-20-2024 ambulatory Steffen [place] Facility:[facility] Start: 06-24-2024 End: 06-24-2024 Subsequent hospital visit by physician Tucker Jimenez 2 [facility] Comment on above: Encounter for assist ed reproductive fertility procedure cycle Start: 06-24-2024 End: 06-24-2024 ambulatory [facility] Start: 06-22-2024 End: 06-22-2024 Subsequent hospital visit by physician Tucker Ultrasound 2 [facility] Comment on above: Encounter for assist ed reproductive fertility procedure cycle Start: 06-22-2024 End: 06-22-2024 ambulatory [facility] Start: 06-19-2024 End: 06-19-2024 Subsequent hospital visit by physician Tucker Ultrasound 2 [facility] Comment on above: Encounter for assist ed reproductive fertility procedure cycle Start: 06-19-2024 End: 06-19-2024 ambulatory [facility] Start: 06-15-2024 End: 06-15-2024 Subsequent hospital visit by physician Tucker Ultrasound 2 [facility] Comment on above: Encounter for assist ed reproductive fertility procedure cycle Start: 06-15-2024 End: 06-15-2024 ambulatory [facility] Start: 05-27-2024 End: 05-27-2024 ambulatory [facility] Facility:[facility] Start: 01-12-2024 End: 01-12-2024 ambulatory Facility:[facility] Start: 01-12-2024 End: 01-12-2024 Patient encounter procedure Gina Sahu ABDOUL Work Phone: [facility] Comment on above: URI, acute (Primary Dx); Acute otitis media, right; Acute cough Start: 12-09-2023 Non-patient / Non-visit MARTA STEPHEN [facility] Start: 12-09-2023 End: 12-09-2023 ambulatory MARTA [facility] Work Phone: Start: 12-09-2023 End: 12-09-2023 [facility] Work Phone: Start: 11-04-2023 End: 11-04-2023 Patient encounter procedure MARTA DEL VALLE [facility] Work Phone: Start: 05-01-2023 Patient encounter status Marta Del Valle MD Work Phone: [facility] Start: 05-01-2023 ambulatory MARTA DEL VALLE Facili ty:[facility] Start: 04-03-2023 ambulatory MARTA DEL VALLE Facili ty:[facility] Start: 01-09-2023 ambulatory MARTA DEL VALLE Facili ty:[facility] Start: 01-09-2023 End: 01-09-2023 Subsequent hospital visit by physician Lawrence Young MD Work Phone: [facility] [place] Comment on above: Arrived Start: 12-19-2022 ambulatory SELF SELF Facility:[facility] Start: 09-27-2022 ambulatory SELF SELF Facility:[facility] Start: 09-27-2022 Encounter for genera l adult medical examination without abnormal findings MARTA DEL VALLE Facility:[facility] Start: 09-27-2022 End: 09-27-2022 Patient encounter status Marta Del Valle MD Work Phone: [facility] Start: 09-27-2022 End: 09-27-2022 Periodic preventive med est patient 18-39 yrs Marta Del Valle MD Work Phone: [facility] Comment on above: Well adult exam (Cristy hector Dx); Prolonged ; Need for influenza vaccination; MELINA (generalized anxiety disorder); Gastroesophageal reflux disease without esophagitis; Recurrent major depressive disorder, in full remission Start: 09-05-2022 ambulatory SELF SELF Facility:[facility] Start: 09-05-2022 Encounter for gynecological examination (general) (routine) without abnormal findings FAITH STARKEY Facility:[facility] Start: 09-05-2022 End: 09-05-2022 Patient encounter procedure Faith Starkey MD Work Phone: [facility] [place] Start: 09-05-2022 End: 09-05-2022 Periodic preventive med est patient 18-39 yrs Faith Starkey MD Work Phone: [facility] [place] Comment on above: Well woman exam with routine gynecological exam (Primary Dx) Start: 08-10-2022 ambulatory MARTA DEL VALLE Facili ty:[facility] Start: 10-03-2021 End: 10-07-[address] [facility] Start: 09-27-2021 Patient encounter status Radha Starkey MD Work Phone: [facility] Start: 09-15-2021 End: 09-16-2021 ambulatory Julissa Henry [facility] Start: 05-17-2021 End: 05-17-2021 Subsequent care visit Faith Starkey MD Work Phone: [facility] [place] Comment on above: Supervision of mirna nair first , antepartum (Primary Dx) Start: 08-23-2020 End: 08-23-2020 Patient encounter procedure IWLL PRABHAKAR [facility] Start: 08-23-2020 End: 08-23-2020 Office outpatient new 30 minutes Will Prabhakar Work Phone: [facility] Comment on above: Acne vulgaris (Prima ry Dx); Dermal nevus of abdominal wall Start: 07-27-2020 End: 07-27-2020 Patient encounter procedure MARTA DEL VALLE [facility] Start: 07-27-2020 End: 07-27-2020 Office outpatient new 30 minutes Marli Jay Work Phone: [facility] Comment on above: Close Exposure to Co vid-19 Virus (Primary Dx); Generalized body aches; Diarrhea, unspecified type Start: 08-19-2019 End: 08-19-2019 Office outpatient visit 15 minutes Janes Gutiérrez Work Phone: [facility] Comment on above: Leukocytosis, unspec ified type (Primary Dx) Start: 07-29-2019 End: 07-29-2019 Emergency department patient visit Robert Danyel Peterson Work Phone: [facility] Emergency Department Comment on above: Epigastric pain (Cristy hector Dx) Start: 05-09-2019 End: 05-09-2019 Refill Marta Del Valle Work Phone: [facility] General Internal Medicine [facility] Start: 03-19-2019 Follow-up encounter Marta queen Work Phone: [facility] General Internal Medicine [facility] Comment on above: RE: Follow up from E R Visit Start: 03-19-2019 End: 03-19-2019 Patient encounter procedure Marta Del Valle Work Phone: [facility] Start: 03-18-2019 End: 03-19-2019 Emergency department patient visit Laurent Duque Work Phone: [facility] Emergency Department Comment on above: Abdominal pain, unsp ecified abdominal location (Primary Dx); Chest pain, unspecified type; Leukocytosis, unspecified type Start: 03-18-2019 End: 03-18-2019 Patient encounter procedure Marta Del Valle Work Phone: [facility] Start: 02-18-2019 End: 01-22-2020 Office outpatient visit 15 minutes Janes Gutiérrez Work Phone: [facility] Comment on above: Leukocytosis, unspec ified type (Primary Dx) Start: 08-20-2018 End: 08-20-2018 Office outpatient visit 15 minutes Colleenkin Marla Work Phone: [facility] Comment on above: Leukocytosis, unspec ified type (Primary Dx) Start: 12-09-2013 End: 12-27-2020 Patient encounter status Faith Starkey MD Work Phone: [facility] Start: 12-03-2013 End: 03-03-2014 ambulatory [facility] Procedures Date Procedure Procedure Detail Performing Clinician Start: 05-13-2025 Fibrinogen assay, quantitative Dr. Steffen Eisenberg MD Work Phone: Start: 05-12-2025 Hemoglobin F measure ment using Klemariela-Aleksandar method Dr. Steffen Eisenberg MD Work Phone: Comment on above: [facility] Reference: Negative POSITIVE AB* Feto- maternal hemorrhage ( RBCs): 10 mL. TESTING PERFORMED AT [facility]. ORIGINAL REPORT ON FILE IN LAB CONTAINS [...] Work Phone: Comment on above: Performed at: [place] [id number] Director: Huan Kuhn PhD, Phone: [phone] Start: 03-10-2025 Gram stain microscopy D tapan [...] MD Work Phone: Start: 06-15-2024 Us transvaginal Lveon Braxton MD Work Phone: Start: 12-09-2023 Salpingography [...] 2) Zoste r Vaccines (1 of 2) [facility] Start: 05-03-2031 DTaP/Tdap/Td Vaccine s (3 - Td or Tdap) DTaP/Tdap/Td Vaccines (3 - Td or Tdap) [facility] Start: 05-03-2031 Tetanus vaccination TETANUS [facility] Start: 05-03-2031 Urine microalbumin profile DTaP,Tdap,Td Vaccine (3 - Td or Tdap) [facility] Start: 08-27-2027 Tetanus vaccination [facility] Start: 09-05-2025 Screening for malign ant neoplasm of cervix [facility] Start: 05-15-2025 [facility] Start: 05-13-2025 Application of abdom inal corset [facility] Start: 05-13-2025 Administration of bl ood product [facility] Start: 05-13-2025 Consultation [facility] Start: 05-12-2025 End: 05-13-2025 [facility] Start: 05-12-2025 Administration of bl ood product [facility] Start: 05-12-2025 Administration of medication [facility] Start: 05-12-2025 Ambulation therapy management [facility] Start: 05-12-2025 Application of device [facility] Start: 05-12-2025 Application of intermittent pneumatic compression device [facility] Start: 05-12-2025 Assessment of risk o f venous thromboembolism [facility] Start: 05-12-2025 Catheterization of vein [facility] Start: 05-12-2025 Deep breathing and coughing exercises [facility] Start: 05-12-2025 Exercises [facility] Start: 05-12-2025 Measuring intake and output [facility] Start: 05-12-2025 Notification of physician [facility] Start: 05-12-2025 Procedure discontinued [facility] Start: 05-12-2025 Provision of activit y privileges [facility] Start: 05-12-2025 Skin care [facility] Start: 05-12-2025 Vital signs measurements [facility] Start: 05-12-2025 Wound care [facility] Start: 05-12-2025 Application of abdom inal corset [facility] Start: 05-12-2025 section Repeat C-Sect ion (Not Applicable) [facility] Start: 05-12-2025 Admission procedure [facility] Start: 04-19-2025 Nonstress test [facility] Start: 04-19-2025 Obstetric monitoring [facility] Start: 04-19-2025 [facility] Start: 04-19-2025 Vital signs measurements [facility] Start: 04-19-2025 Ultrasonography for biophysical profile without non-stress testing OB Biophysical Prof W/O NST [facility] Start: 04-07-2025 Comprehensive metabo lic 2000 panel - Serum or Plasma [facility] Start: 04-07-2025 Procedure [facility] Start: 03-10-2025 Source specific culture Genital Cult ure [facility] Start: 03-10-2025 Source specific culture [facility] Start: 02-26-2025 CBC W Auto Different ial panel - Blood [facility] Start: 02-26-2025 Measurement of gluco se 2 hours after glucose challenge for glucose tolerance test [facility] Start: 02-26-2025 Serologic test for syphilis [facility] Start: 02-26-2025 [facility] Start: 11-10-2024 End: 11-10-2024 [facility] Start: 10-02-2024 End: 10-02-2024 Patient encounter procedure 10/02/2024 9:15 AM EST Appointment [address] [phone] [facility] Start: 08-25-2024 End: 08-25-2024 Patient encounter procedure 08/25/2024 8:30 AM EST Appointment [address] [phone] [facility] Start: 08-21-2024 End: 08-21-2024 Patient encounter procedure 08/21/2024 7:45 AM EST Appointment [address] [phone] [facility] Start: 06-24-2024 End: 06-24-2024 Patient encounter procedure 06/24/2024 7:30 AM EDT Appointment [address] [phone] [facility] Start: 06-22-2024 End: 06-22-2024 Patient encounter procedure 06/22/2024 7:45 AM EDT Appointment [address] [phone] [facility] Start: 06-19-2024 End: 06-19-2024 Patient encounter procedure 06/19/2024 7:45 AM EDT Appointment [address] [place] [phone] [facility] Start: 05-31-2024 COVID-19 Vaccine () COVID-19 Vaccine () [facility] Start: 05-31-2024 COVID-19 VACCINE () COVID-19 VACCINE () [facility] Start: 05-31-2024 COVID-19 Vaccine () COVID-19 Vaccine () [facility] Start: 05-31-2024 Influenza vaccination [facility] Start: 05-01-2024 PREVENTATIVE HEALTH VISIT PREV ENTATIVE HEALTH VISIT [facility] Start: 09-30-2023 Behavioral Health Screening Behavioral Health Screening [facility] Start: 09-27-2023 End: 09-27-2023 Patient encounter procedure 09/27/2023 Office Visit [employer] ACCOUNT EXECUTIVE Faith Starkey MD [address] [place] [phone] [facility] Start: 09-27-2023 PREVENTATIVE HEALTH VISIT PREV ENTATIVE HEALTH VISIT [facility] Start: 09-05-2023 PREVENTATIVE HEALTH VISIT PREV ENTATIVE HEALTH VISIT [facility] Start: 05-31-2023 Covid-19 Vaccine () Covid-19 Vaccine () [facility] Start: 05-01-2023 End: 05-01-2023 Patient encounter procedure 05/01/2023 Office Visit General Medicine Marta Del Valle MD [address] [place] [address] [facility] Start: 09-27-2022 End: 09-27-2022 Patient encounter procedure 09/27/2022 Office Visit General Marta Thakur MD [address] [place] [address] [facility] Start: 09-02-2022 Microscopic observat ion [Identifier] in Cervix by Cyto stain PAP SMEAR [facility] Start: 09-02-2022 Screening for malign ant neoplasm of cervix PAP SMEAR [facility] Start: 05-31-2022 Influenza vaccination INFLUENZA VACC INE (#1) [facility] Start: 09-28-2021 PREVENTATIVE HEALTH VISIT PREV ENTATIVE HEALTH VISIT [facility] Start: 09-27-2021 End: 09-27-2021 Patient encounter procedure 09/27/2021 Office Visit General Medicine Marta Del Valle MD [address] [place] [phone] [facility] Start: 08-29-2021 End: 08-29-2021 Office Visit 08/29/2021 Office Visit Dermatology SrinivasWill MD [address] [place] [id number] [phone] [facility] Start: 06-21-2021 End: 06-21-2021 Follow-up encounter 06/21/2021 Follow Up Visit [employer] ACCOUNT EXECUTIVE Faith Starkey MD [address] [employer] [address] [place] [phone] [facility] [place] Start: 06-07-2021 End: 06-07-2021 Follow-up encounter 06/07/2021 Follow Up Visit Maternal Medicine [facility] [place] Start: 05-31-2021 Influenza vaccination INFLUENZA VACC INE (#1) [facility] Start: 05-31-2021 End: 05-31-2021 Follow-up encounter 05/31/2021 Follow Up Visit [employer] ACCOUNT EXECUTIVE Faith Starkey MD [address] [phone] [facility] [place] Start: 05-22-2021 End: 05-22-2021 ambulatory 05/22/2021 Rehab Services Visit Sports Medicine and Rehabilitation Faith Starkey MD [address] [phone] Tere Cross, PT [address] [place] [address] [place] [address] [facility] Start: 04-01-2021 COVID-19 VACCINE (3 - Booster for Pfizer series) COVID-19 VACCINE (3 - Booster for Pfizer series) [facility] Start: 03-29-2021 Influenza vaccinatio n given Sequential Influenza Vaccine (#1) [facility] Comment on above: Postponed from 05/31 (Patient Refused) Start: 08-23-2020 End: 08-23-2020 Office Visit 08/23/2020 Office Visit Dermatology SrinivasWill MD [address] [place] [address] [phone] [facility] Start: 2019 Screening for malign ant neoplasm of cervix HPV Testing [facility] Start: 09-02-2019 End: 09-02-2019 Office Visit 09/02/2019 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 Start: 08-19-2019 End: 08-19-2019 Office Visit 08/19/2019 Office Visit Oncology Janes Gutiérrez MD [address] [place] [id number] [phone] [facility] Oncology [facility] Start: 05-31-2019 Influenza vaccination INFLUENZA VACC INE (#1) [facility] Start: 05-31-2019 Influenza vaccinatio n given [facility] Start: 05-08-2019 Microscopic observat ion Cyto stain Nom (Cvx) PAP SMEAR [facility] Start: 05-08-2019 Screening for malign ant neoplasm of cervix PAP SMEAR [facility] Start: 02-18-2019 End: 02-18-2019 Ambulatory 02/18/2019 Office Visit Oncology Janes Gutiérrez MD [address] [facility] [address] [place] [address] [phone] [facility] Oncology [facility] Start: 02-17-2019 End: 08-21-2019 Complete blood count with white cell differential, manual CBC and Differential Routine Leukocytosis, Unspecified Type Expected: 02/17/2019, Expires: 08/21/2019 [facility] Comment on above: Expected: 02/17/2019 , Expires: 08/21/2019 Start: 05-31-2018 Influenza vaccination SEQUENTI AL INFLUENZA VACCINE (#1) [facility] Start: 01-16-2016 Screening for malign ant neoplasm of cervix Pap Testing [facility] Start: 01-15-2014 Screening for malign ant neoplasm of cervix Cervical Cancer Screening [facility] Start: 2010 Screening for malign ant neoplasm of cervix HPV/Cotest [facility] Start: 2008 Hepatitis B vaccination HEP B VACCINE (1 of 3 - 19+ 3-dose series) [facility] Start: 2008 Hepatitis B Vaccine (1 of 3 - 19+ 3-dose series) Hepatitis B Vaccine (1 of 3 - 19+ 3-dose series) [facility] Start: 2008 Hepatitis B Vaccines (1 of 3 - 19+ 3-dose series) Hepatitis B Vaccines (1 of 3 - 19+ 3-dose series) [facility] Start: 2007 Anxiety Screening Anxiety Screening [facility] Start: 2007 [facility]: 2007 Hepatitis C antibody , confirmatory test Hepatitis C Screening [facility] Start: 2007 Hepatitis C screening Hepatitis C Sc manish [facility] Start: 2007 HIV screening HIV Screening [facility] Start: 2004 HIV screening HIV Screening [facility] Start: 2002 Varicella vaccination Varicell a Vaccines (1 of 2 - 13+ 2-dose series) [facility] Start: 2001 Adolescent depressio n screening assessment Depression Screening (PHQ9) [facility] Start: 1992 History and physical examination, annual for health maintenance Wellness Visit [facility] Start: 1990 MMR Vaccines (1 of 1 - Standard series) MMR Vaccines (1 of 1 - Standard series) [facility] Start: 1989 HIV screening HIV Screening [facility] Start: 1989 Lipid panel Lipid Panel [facility] Start: 1989 Screening for malign ant neoplasm of cervix PAP SMEAR [facility] Start: 1989 Yearly Adult Physical Yearly Adult P hysical [facility] Alanine aminotransfe rase [Enzymatic activity/volume] in Serum or Plasma [facility] Albumin [Mass/volume ] in Serum or Plasma [facility] Alkaline phosphatase [Enzymatic activity/volume] in Serum or Plasma [facility] Anion gap in Serum o r Plasma [facility] Bilirubin, total measurement [facility] BUN/Creatinine ratio [facility] Calcium [Mass/volume ] in Serum or Plasma [facility] Carbon dioxide, tota l [Moles/volume] in Central venous blood [facility] Creatinine [Mass/vol ume] in Serum or Plasma [facility] Cytology Cervical or vaginal smear or scraping study CYTOLOGY-COATER HELPER, 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 Cytology Routine Well woman exam with routine gynecological exam 09/05/2022 3:07 PM EST [facility] Erythrocyte mean corpuscular volume determination [facility] Glucose [Mass/volume ] in Serum or Plasma [facility] Hematocrit [Volume Fraction] of Blood [facility] Hemoglobin [Mass/vol ume] in Blood [facility] Leukocytes [#/volume ] in Blood [facility] Mean corpuscular hemoglobin concentration determination [facility] Mean corpuscular hemoglobin determination [facility] Measurement of renal function [facility] Neutrophil count [facility] Neutrophil percent differential count [facility] Patient Education [facility] Work Phone: Patient referral [facility] Work Phone: Platelets [#/volume] in Blood [facility] Potassium measurement [facility] Red blood cell count [facility] Red cell distributio n width determination [facility] End: 06-19-2024 GERRY US Pelvis Limited Follicles - Follicle Studies Performed [facility] Work Phone: Comment on above: Once for 1 Occurrenc es starting 06/19/2024 until 06/19/2024 End: 06-22-2024 GERRY US Pelvis Limited Follicles - Follicle Studies Performed [facility] Work Phone: Comment on above: Once for 1 Occurrenc es starting 06/22/2024 until 06/22/2024 End: 06-24-2024 GERRY US Pelvis Limited Follicles - Follicle Studies Performed [facility] Work Phone: Comment on above: Once for 1 Occurrenc es starting 06/24/2024 until 06/24/2024 Serum chloride measurement [facility] Sodium measurement [facility] Streptococcus agalac tiae [Presence] in Unspecified specimen by Organism specific culture [facility] Total protein measurement [facility] Urea nitrogen [Mass/volume] in Serum or Plasma [facility] End: 08-14-2024 US Pelvis transvaginal [facility] [...] 1 Occurrenc es starting 06/24/2024 until 06/24/2024 [facility] Immunizations Immunization Date Immunization Notes Care Provider Audrey rahman 03-10-2025 tetanus toxoid, redu mason diphtheria toxoid, and acellular pertussis vaccine, adsorbed Dr. Steffen Eisenberg MD Work Phone: [facility] 09-27-2022 influenza, injectabl e, quadrivalent, preservative free Marta Del Valle MD Work Phone: [facility] 09-27-2022 influenza quad vacci ne 0.5 ML Suspension Prefilled Syringe Marta Del Valle MD Work Phone: [facility] 09-27-2022 influenza virus vacc ine, unspecified formulation Gina Sahu APRN.CNP Work Phone: [facility] 06-21-2021 influenza, injectabl e, quadrivalent, preservative free Faith Starkey MD Work Phone: [facility] 06-21-2021 influenza virus vacc ine, unspecified formulation Faith Starkey MD Work Phone: [facility] 05-03-2021 tetanus toxoid, redu mason diphtheria toxoid, and acellular pertussis vaccine, adsorbed Faith Starkey MD Work Phone: [facility] 02-04-2021 Covid (Pfizer) Dr. Steffen chao MD Work Phone: [facility] 01-14-2021 Covid (Pfizer) Dr. Steffen chao MD Work Phone: [facility] 09-07-2020 Influenza, injectabl e, Madin Erlinda Canine Kidney, preservative free, quadrivalent Dr. Steffen Eisenberg MD Work Phone: [facility] 07-23-2019 influenza, injectabl e, quadrivalent, preservative free Faith Starkey MD Work Phone: [facility] 07-23-2019 influenza virus vacc ine, unspecified formulation Faith Starkey MD Work Phone: [facility] 07-31-2018 influenza, injectabl e, quadrivalent, contains preservative [facility] 07-31-2018 influenza, injectabl e, quadrivalent, preservative free Dr. Steffen Eisenberg MD Work Phone: [facility] 07-31-2018 influenza virus vacc ine, unspecified formulation [facility] 08-27-2017 tetanus toxoid, redu mason diphtheria toxoid, and acellular pertussis vaccine, adsorbed [facility] 11-15-2016 Human Papillomavirus 9-valent vaccine [facility] 06-18-2016 Human Papillomavirus 9-valent vaccine [facility] 05-08-2016 Human Papillomavirus 9-valent vaccine [facility] 09-20-2015 influenza virus vacc ine, whole virus [facility] 09-20-2015 influenza, injectabl e, quadrivalent, preservative free Dr. Steffen Eisenberg MD Work Phone: [facility] 08-18-2014 influenza virus vacc ine, whole virus Marta [facility] 08-18-2014 influenza, injectabl e, quadrivalent, preservative free Dr. Steffen Eisenberg MD Work Phone: [facility] 08-30-2013 influenza virus vacc ine, unspecified formulation [facility] Payers Date Payer Category Payer [employer] [facility] [id number]. [id number] 2024 Unknown [id number] 2024 Self-pay 2023 Managed Care (Private) [facility] 1.2.840.703367.1.13.647.2. 7.9.583357.852212.315 2022 Unknown [id number] 2022 Unknown [id number] 2021 Private Health Insurance 1.2 .840.866700.1.13.172.2. 7.3.230748.315 2021 Unknown [id number] 2021 Unknown [id number] 2017 Unknown [id number] 1.2.840.007241.1.13.172.2. 7.3.901128.315 2017 Unknown [id number] 2017 Unknown [id number] 1.2.840.213042.1.13.385.2. 7.3.841407.315 2014 Unknown [id number] 2003 Unknown 1.2.840.756968. 1.13.159.2. 7.3.108023.315 2003 Unknown [id number] 1989 Unknown [id number] 2.16.840.1.947512.3.579.2. 903 1989 Unknown [id number] 2.16.840.1.023840.3.579.2. 903 1989 Unknown [id number] 2.16.840.1.863293.3.579.2. 902 1989 Unknown [id number] 2.16.840.1.366340.3.579.2. 900 1989 Unknown [id number] 2.16.840.1.162547.3.579.2. 900 1989 Unknown [id number] 2.16.840.1.676537.3.579.2. 594 1989 Unknown [id number] 2.16.840.1.343090.3.579.2. 594 1989 Unknown [id number] 2.16840.1.592537.3.579.2. 594 1989 Unknown [id number] 2.16.840.1.446180.3.579.2. 594 1989 Unknown [id number] 2.16.840.1.580827.3.579.2. 594 1989 Unknown [id number] 2.16.840.1.525068.3.579.2. 594 1989 Unknown [id number] 2.16.840.1.710340.3.579.2. 594 1989 Unknown [id number] 2.16.840.1.280465.3.579.2. 594 1989 Unknown [id number] 2.16.840.1.896744.3.579.2. 594 1989 Unknown [id number] 2.16.840.1.285664.3.579.2. 594 1989 Unknown [id number] 2.16.840.1.861935.3.579.2. 594 1989 Unknown [id number] 2.16.840.1.587294.3.579.2. 1243 1989 Unknown [id number] 2.16.840.1.605544.3.579.2. 1242 1989 Unknown [id number] 2.16.840.1.539176.3.579.2. 1242 1989 Unknown [id number] 2.16.840.1.757739.3.579.2. 1242 1989 Unknown [id number] 2.16.840.1.979076.3.579.2. 1242 1989 Unknown [id number] 2.16.840.1.838617.3.579.2. 1242 1989 Unknown [id number] 2.16.840.1.442998.3.579.2. 1242 1989 Unknown [id number] 2.16.840.1.224506.3.579.2. 1242 1989 Unknown [id number] 2.16.840.1.717651.3.579.2. 1244 1989 Unknown [id number] 2.16.840.1.904221.3.579.2. 1244 1989 Unknown [id number] 2.16.840.1.843998.3.579.2. 1244 1989 Unknown [id number] 2.16.840.1.222903.3.579.2. 1244 1989 Unknown [id number] 2.16.840.1.685613.3.579.2. 1245 1989 Unknown [id number] 2.16.840.1.797995.3.579.2. 1244 1989 Unknown [id number] 2.16.840.1.343047.3.579.2. 1244 1989 Unknown [id number] 2.16.840.1.796377.3.579.2. 1244 1989 Unknown [id number] 2.16.840.1.565347.3.579.2. 1244 1989 Unknown [id number] 2.16.840.1.955687.3.579.2. 1244 1989 Unknown [id number] 2.16.840.1.239253.3.579.2. 1244 1989 Unknown [id number] 2.16.840.1.931366.3.579.2. 1244 1989 Unknown [id number] 2.16.840.1.559801.3.579.2. 1244 1989 Unknown [id number] 2.16.840.1.043458.3.579.2. 1989 Unknown [id number] 2.16.840.1.402217.3.579.2. 1989 Unknown [id number] 2.16.840.1.216681.3.579.2. 1989 Unknown [id number] 2.16.840.1.370378.3.579.2. 1989 Unknown [id number] 2.16.840.1.606210.3.579.2. 1989 Unknown [id number] 2.16.840.1.805423.3.579.2. 1989 Unknown [id number] 2.16.840.1.143354.3.579.2 1989 Unknown [id number] 2.16840.1.281790.3.579.2. 479 1989 Unknown [id number] 2.16840.1.165818.3.579.2. 479 1989 Unknown [id number] 2.16840.1.831731.3.579.2. 479 Unknown [id number] 2.840.1.745042.3.579.2. 462 Unknown [id number] 2.840.1.819222.3.579.2. 462 Unknown [id number] 2.840.1.659471.3.579.2. 462 Unknown [id number] 2.840.1.080920.3.579.2. 462 Unknown [id number] 2.840.1.270924.3.579.2. 462 Unknown [id number] 2.840.1.227705.3.579.2. 462 Unknown [id number] 2.840.1.665960.3.579.2. 462 Unknown [id number] 2.840.1.939702.3.579.2. 462 Unknown [id number] 2.840.1.728736.3.579.2. 462 Unknown [id number] 2.840.1.695697.3.579.2. 462 Unknown [id number] 2.16840.1.254925.3.579.2. 462 Unknown [id number] 2.840.1.541421.3.579.2. 462 Unknown [id number] 2.16840.1.559955.3.579.2. 462 Unknown [id number] 2.16840.1.333910.3.579.2. 462 Unknown [id number] 2.840.1.933537.3.579.2. 462 Unknown [id number] 2.16.840.1.336844.3.579.2. 462 Unknown [id number] 2.16.840.1.750274.3.579.2. 462 Unknown [id number] 2.16.840.1.711675.3.579.2. 462 Unknown [id number] 2.16.840.1.330894.3.579.2. 462 Unknown [id number] 2.16.840.1.493057.3.579.2. 462 Unknown [id number] 2.16.840.1.073903.3.579.2. 462 Unknown [id number] 2.16840.1.951958.3.579.2. 462 Unknown [id number] 2.16840.1.682015.3.579.2. 462 Unknown [id number] 2.16840.1.700693.3.579.2. 462 Unknown [id number] 2.16840.1.249794.3.579.2. 462 Unknown [id number] 2.16840.1.661411.3.579.2. 462 Unknown [id number] 2.16840.1.660402.3.579.2. 462 Unknown [id number] 2.16840.1.033897.3.579.2. 462 Unknown [id number] 2.16840.1.455531.3.579.2. 462 Unknown [id number] 2.16840.1.716924.3.579.2. 462 Unknown [id number] 2.16840.1.313450.3.579.2. 462 Unknown [id number] 2.16840.1.202099.3.579.2. 462 Unknown [id number] 2.16.840.1.875773.3.579.2. 462 Unknown [id number] 2.16840.1.604364.3.579.2. 462 Unknown [id number] 2.16.840.1.135318.3.579.2. 462 Unknown [id number] 2.16.840.1.934815.3.579.2. 462 Social History Date Type Detail Facility Start: 02-20-2012 End: 08-20-2018 Tobacco smoking status [facility] Never smoker [facility] Start: 1990 Sex Assigned At Not on file [facility] Start: 07-31-2018 End: 05-12-2025 Tobacco smoking status [facility] Former smoker [facility] Start: 10-01-2009 End: 10-01-2010 History of tobacco use Current smoker [facility] Start: 10-01-2009 End: 10-01-2010 History of tobacco use Cigarette Smoker [facility] Start: 07-31-2018 End: 01-12-2024 Cigarettes smoked current (pack per day) - Reported [facility] Start: 12-09-2013 Alcohol Comment 1-2 times per week, up to 2 glasses of wine at a time [facility] Start: 07-29-2019 End: 01-12-2024 Alcohol intake Current drinker of alcohol (finding) [facility] Start: 02-20-2012 End: 08-23-2020 Tobacco use and exposure Never used [facility] Start: 06-05-2024 End: 10-02-2024 Exposure to SARS-CoV-2 (event) Not sure [facility] Exposure to SARS-CoV -2 (event) Yes [facility] Start: 07-31-2018 End: 01-12-2024 Alcohol intake Yes [facility] Start: 05-03-2021 End: 05-01-2023 Alcohol intake Ex-drinker (finding) [facility] Start: 12-09-2013 Alcohol Comment 1-2 times per week, up to 2 glasses of wine at a time [facility] Start: 10-21-2020 [facility] Start: 08-26-2022 End: 09-27-2022 Exposure to SARS-CoV-2 (event) Unable to assess [facility] Start: 11-04-2023 Tobacco smoking stat us NHIS Unknown if ever smoked [facility] Start: 1990 Sex Assigned At Female [facility] Start: 02-20-2012 Alcohol Comment occassional [facility] Amanda Depression Score 10 [facility] Gender identity Identifies as fe male gender (finding) [facility] Goals Date Patient Goal Desired Activity [...] Functional status Activity Abili ty Bedrest;Post Op [facility] Work Phone: Mental Status Date Assessment Result Facility 11-10-2024 Cognitive function Voice/Name [facility] Work Phone: Clinical Notes 05-17-2021 to 05-15-2025 Note Date & Type Note Facility 05-15-2025 Progress note [facility] 05-15-2025 Discharge summary Note Date/Time May 15, 2025 12:14pm [facility] Medical Records Department [address] [place] [address] Discharge Summary 05/15/25 0842 MR#: [id number] Acct: [id number] Name: BARBY CABALLERO Rep #:[id number] : 1990 34 From: Mariana Jonas CNM PCP: Dr. Steffen Eisenberg MD Status:ADM IN Location: UL950-4 Providers Date of Admission: 05/12/25 Primary Care [...] Up With: Edel Bullock DO When: Call [phone] to make an appointment for an incision [...] NU Jonas; Dr. Steffen Eisenberg MD~ Signed [facility] Work Phone: 1(562) 437-920608-16-2025 Discharge summary [facility] Medical Records Department [address] [place] [address] Discharge Summary 05/15/25 0842 MR#: [id number] Acct: [id number] Name: BARBY CABALLERO Rep #:[id number] : 1990 34 From: Mariana Jonas CNM PCP: Dr. Steffen Eisenberg MD Status:ADM IN Location: BG532-7 Providers Date of Admission: 05/12/25 Primary Care [...] Up With: Edel Bullock DO When: Call [phone] to make an appointment for an incision [...] NU Jonas; Dr. Steffen Eisenberg MD~ Signed [facility]08-16-2025 Progress note Author Mariana Jonas [facility] Note Date/Time May 15, 2025 8: 42am [facility] Medical Records Department [address] [place] [address] Progress Note - OBGYN 05/15/25 0840 MR#: [id number] Acct: [id number] Name: BARBY CABALLERO Rep #:[id number] : 1990 34 From: Mariana Jonas CNM PCP: Dr. Steffen Eisenberg MD Status:ADM IN Location: EN156-7 Subjective Subjective Patient doing well without complaints. [...] Cosigner Signature (if applicable): CC: ~ Signed [facility] Work Phone: 1(904) 370-548208-16-2025 [facility]08-16-2025 Progress note [facility] Medical Records Department [address] [place] [address] Progress Note - OBGYN 05/15/25 0840 MR#: [id number] Acct: [id number] Name: BARBY CABALLERO Rep #:[id number] : 1990 34 From: Mariana Jonas CNM PCP: Dr. Steffen Eisenberg MD Status:ADM IN Location: HL417-9 Subjective Subjective Patient doing well without complaints. [...] Cosigner Signature (if applicable): CC: ~ Signed [facility]08-15-2025 Progress note Author Mariana Jonas [facility] Note Date/Time May 14, 2025 8: 30am [facility] Medical Records Department [address] [place] [address] Progress Note - OBGYN 05/14/2528 MR#: [id number] Acct: [id number] Name: BARBY CABALLERO Rep #:[id number] : 1990 34 From: Mariana Jonas CNM PCP: Dr. Steffen Eisenberg MD Status:ADM IN Location: ZC138-7 Subjective Subjective Patient doing well without complaints. [...] 74.0 H, Lymph % (Auto) 17.1 L, [place] % (Auto) 6.6, Eos % (Auto) 0.9, [...] Cosigner Signature (if applicable): CC: ~ Signed [facility] Work Phone: 1(790) 338-123908-15-2025 Progress note [facility] Medical Records Department [address] [place] [address] Progress Note - OBGYN 05/14/25 08 MR#: [id number] Acct: [id number] Name: BARBY CABALLERO Rep #:[id number] : 1990 34 From: Mariana Jonas CNM PCP: Dr. Steffen Eisenberg MD Status:ADM IN Location: CK509-2 Subjective Subjective Patient doing well without complaints. [...] 74.0 H, Lymph % (Auto) 17.1 L, [place] % (Auto) 6.6, Eos % (Auto) 0.9, [...] Cosigner Signature (if applicable): CC: ~ Signed [facility]08-14-2025 Progress note Author Apple Lao [facility] Note Date/Time May 15, 2025 2: 25pm [facility] Medical Records Department [address] [place] [address] Progress Note - OBGYN 05/13/251811 MR#: [id number] Acct: [id number] Name: BARBY CABALLERO Rep #:[id number] : 1990 34 From: Apple fuentes MD PCP: Dr. Steffen Eisenberg MD Status:ADM IN Location: [place] [address] Subjective Subjective LATE ENTRY- patient seent at [...] 74.0 H, Lymph % (Auto) 17.1 L, [place] % (Auto) 6.6, Eos % (Auto) 0.9, [...] Cosigner Signature (if applicable): CC: ~ Signed [facility] Work Phone: 1(339) 408-822608-14-2025 Progress note Author Apple aLo [facility] Note Date/Time May 13, 2025 6: 08pm [facility] Medical Records Department [address] [place] [address] Progress Note 05/13/251806 MR#: [id number] Acct: [id number] Name: BARBY CABALLEROE Rep #:[id number] : 1990 34 From: Apple fuentes MD PCP: Dr. Steffen Eisenberg MD Status:ADM IN Location: [place] [address] Progress Note Patient evaluated due to passing [...] Cosigner Signature (if applicable): CC: ~ Signed [facility] Work Phone: 1(797) 715-997408-14-2025 Progress note [facility] Medical Records Department [address] [place] [address] Progress Note 05/13/251806 MR#: [id number] Acct: [id number] Name: DONGKiranBARBY Rep #:[id number] : 1990 34 From: Apple fuentes MD PCP: Dr. Steffen Eisenberg MD Status:ADM IN [facility] Progress Note Patient evaluated due to passing [...] Cosigner Signature (if applicable): CC: ~ Signed [facility]08-13-2025 Procedure note [facility] Medical Records Department [address] [place] [address] Operative Report 05/12/25 0920 MR#: [id number] Acct: [id number] Name: BARBY CABALLERO Rep #:[id number] : 1990 34 From: Edel Bullock DO PCP: Dr. Steffen Eisenberg MD Status:ADM IN [facility] Assessment & Plan (1) GBS (group B [...] (5 minute): 9 Delayed Cord Clamping: Yes Forensic Specialist wool cleaner: Yes Aircraft Fuselage Framer: Mark Jauregui Tasks completed by director of first impressions: Closing and Retracting Additional assistant commissioner?: No Complications Complications: No Multi Select Codes Urinary/Genital Urinary/Genital CPT Codes: 01467 Delivery [facility] 05/12/25 0926 Cosigner Signature (if applicable): CC: Dr. Steffen Eisenberg MD; Dr. Edel Bullock DO~ Signed [facility]08-13-2025 Discharge summary Author Edel Diehl [facility] Note Date/Time May 12, 2025 7: 21am [facility] Medical Records Department [address] [place] [address] Instructions for Home/Discharge Instructions 05/12/25 0719 MR#: [id number] Acct: [id number] Name: BARBY CABALLERO Rep #:[id number] : [...] Up With: Edel Bullock DO When: Call [phone] to make an appointment for an incision [...] CC: Dr. 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 Edel Bullock DO~ Signed [facility] Work Phone: 1(170) 511-671308-13-2025 Discharge summary [facility] Medical Records Department [address] [place] [address] Instructions for Home/Discharge Instructions 05/12/25 0719 MR#: [id number] Acct: [id number] Name: TORRI CABALLEROA EDWINA Rep #:[id number] [...] Up With: Edel Bullock DO When: Call [phone] to make an appointment for an incision [...] CC: Dr. 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 Date Name GA/Weeks Outcome Route Bth Weight Gen Labor Lgth Anesthesia Del Locatn Provider FOB 07/18/21 Larry 40 live - full term 7lbs 7oz Male [facility] [place] Delivery Date: 07/18/21 Last [...] transfer. declines NIPT had genetic testing at [facility] 11/05/24 -?-?-?-?-?-?-?-?-?-?-?-?- 12w 1d 260 lb (-4 [...] Eisenberg MD; Dr. Edel Bullock, ~ Signed [facility]07-30-2025 Progress [facility] Women[facility] [address], [address] [place] [address] OFFICE VISIT Date of Service: 04/28/25 MR#: [id number] Acct: [id number] Name: BARBY CABALLERO Rep #: [id number] : 1990 Provider: Dr. 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 declines NIPT had genetic testing at [facility] 11/05/24 -?-?-?-?-?-?-?-?-?-?-?-?- 12w 1d 260 lb (-4 [...] and Symptoms of Preeclampsia, Feeding No , Portal Education and Family Medical Leave or Disability [...] ovarian syndrome) E28.2 CPT Codes Non-Stress Test (78620) Assessment and Plan Assessment and Plan (1) [...] Cosigner Signature: Date (if applicable) CC: ~ [facility] [employer] [facility] Work Phone: 1(284) 877-752407-28-2025 Radiology Diagnostic study note [facility] Imaging Services [address] [place], [place] [address]Dimitri [place], [place] [address] OB Biophysical Prof W/O ROT MR#: [id number] Acct: [id number] Name: BARBY CABALLERO Rep #: [id number] : 1990 F 34 From: Sloan Padron MD PCP: Dr. Steffen Eisenberg MD Status: REG CLI Study:OB Biophysical Prof W/O NST Date of Exa m: 04/22/25 Exam# [id number] Ordering Dr: Edel Rowley DO PROCEDURE: OB [...] NST IMPRESSION: Normal biophysical profile. Reading Location: [facility] CC: Dr. Steffen Eisenberg MD; Dr. Edel Bullock DO ~ Book Retailer: Signed [facility]07-22-2025 [facility] Women's [address], [address] [place] [address] OFFICE VISIT Date of Service: 04/20/25 MR#: [id number] Acct: [id number] Name: BARBY CABALLERO Rep #: [id number] : 1990 Provider: Dr. 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 declines NIPT had genetic testing at [facility] 11/05/24 -?-?-?-?-?-?-?-?-?-?-?-?- 12w 1d 260 lb (-4 [...] Cosigner Signature: Date (if applicable) CC: ~ [facility]07-22-2025 Progress note Author Apple Lao [facility] Note Date/Time April 20, 2025 2:29 pm [facility] Women[facility] [address], [address] [place] [address] OFFICE VISIT Date of Service: 04/20/25 MR#: [id number] Acct: [id number] Name: FEDERICOBARBYVICKI DEWITTE Rep #: [id number] : 1990 Provider: Dr. 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 Date Name GA/Weeks Outcome Route Bth Weight Infant Gen Labor Lgth Anesthesia Del Locatn Provider FOB 07/18/21 Larry 40 live - full term 7lbs 7oz Male [facility] [place] Delivery Date: 07/18/21 Last [...] transfer. declines NIPT had genetic testing at [facility] 11/05/24 -?-?-?-?-?-?-?-?-?-?-?-?- 12w 1d 260 lb (-4 [...] POC Urinalysis 2 Dip (Clinic) Today 04/20/25 1987 <Electronically signed by Apple brown MD> Date _ Apple Lao MD [facility] Signature: Date (if applicable) CC: ~ [facility] Work Phone: 1(590) 626-426907-17-2025 Radiology Diagnostic study note [facility] Imaging Services [address] [place] [address] OB Biophysical Prof W/O NST MR#: [id number] Acct: [id number] Name: BARBY CABALLERO Rep #: [id number] : 1990 F 34 From: Sloan Padron MD PCP: Dr. Steffen Eisenberg MD Status: REG CLI Study:OB Biophysical Prof W/O NST Date of Exa m: 04/15/25 Exam# [id number] Ordering Dr: Edel Rowley DO PROCEDURE: OB [...] NST IMPRESSION: Normal biophysical profile. Reading Location: [facility] CC: Dr. Steffen Eisenberg MD; Dr. Edel Bullock DO ~ Book Retailer: Signed [facility]07-09-2025 Progress [facility] [address], [address] [place] [address] OFFICE VISIT Date of Service: 04/07/25 MR#: [id number] Acct: [id number] Name: BARBY CABALLERO Rep #: [id number] : 1990 Provider: Dr. 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 Date Name GA/Weeks Outcome Route Bth Weight Gen Labor Lgth Anesthesia Del Locatn Provider FOB 07/18/21 Larry 40 live - full term 7lbs 7oz Male [facility] [place] Delivery Date: 07/18/21 Last [...] transfer. declines NIPT had genetic testing at [facility] 11/05/24 -?-?-?-?-?-?-?-?-?-?--?-?- 12w 1d 260 lb (-4 [...] and Symptoms of Preeclampsia, Feeding No , Portal Education and Family Medical Leave or Disability [...] DO> Date _ Edel Bullock DO [facility] Signature: Date (if applicable) CC: ~ [facility]06-27-2025 [facility] Women[facility] [address], [address] [place] [address] OFFICE VISIT Date of Service: 03/26/25 MR#: [id number] Acct: [id number] Name: DONGKiranBARBYVICKI BLAND Rep #: [id number] : 1990 Provider: Dr. 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) pets and animals: cat(s) history of recent travel: Yes ([place] for IVF) out of state: Yes sexually [...] physical activity do you participate in: none landon/buddhist: None seatbelt use: always do you feel [...] live - full term 7lbs 7oz Male [facility] [place] Delivery Date: 07/18/21 Last [...] and Symptoms of Preeclampsia, Feeding No , Portal Education and Family Medical Leave or Disability [...] Cosigner Signature: Date (if applicable) CC: ~ [facility] [id number] Progress note Author Edel Diehl [facility] Note Date/Time March 26, 2025 2:36 pm [facility] [address], [address] [place] [address] OFFICE VISIT Date of Service: 03/26/25 MR#: [id number] Acct: [id number] Name: FEDERICOBARBY EDWINA Rep #: [id number] : 1990 Provider: Dr. 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 Date Name GA/Weeks Outcome Route Bth Weight Gen Labor Lgth Anesthesia Del Locatn Provider FOB 07/18/21 Larry 40 live - full term 7lbs 7oz Male [facility] [place] Delivery Date: 07/18/21 Last [...] Quintana DO> Date _ Edel Bullock DO [facility] Signature: Date (if applicable) CC: ~ [facility] Work Phone: 1(954) 980-713605-30-2025 Progress [facility] [address] [place] [address], [address] [place] [address] OFFICE VISIT Date of Service: 02/26/25 MR#: [id number] Acct: [id number] Name: BARBY CABALLERO Rep #: [id number] : 1990 Provider: Dr. 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 Date Name GA/Weeks Outcome Route Bth Weight Infant Gen Labor Lgth Anesthesia Del Locatn Provider FOB 07/18/21 Larry 40 live - full term 7lbs 7oz Male [facility] [place] Delivery Date: 07/18/21 Last [...] Performing Provider: Apple Lao MD Performing Location: [facility] Administered by: Aziza Olson on 02/26/25 08:56 Dose Route Admin Location Dispensed Lot Number Expiration Date NDC House Wrecker 1,500 unit IM right gluteal 1 ea [id number] 03/05/27 [id number] 0 [employer] [facility] Results POC Urinalysis 2 Dip (Clinic) [...] Cosigner Signature: Date (if applicable) CC: ~ [facility]05-02-2025 Evaluation note* Diagnosis Onset Date Resolution [...] 2025 2:10pm Depression with anxiety acute [facility] 2024 2:10pm Family history of genetic disorder [...] 9 :54am Depression with anxiety acute [facility] 2024 9:54am Family history of [...] high-risk acute May 06, 2025 2:05pm [facility] Work Phone: 1(215) 550-547805-02-2025 Evaluation note* Diagnosis Onset Date Resolution Status [...] 2025 2:11pm Depression with anxiety acute [facility] 2024 2:11pm Family history of genetic disorder [...] 26, 2025 2:10pm Depression with anxiety acute [facility] 2024 2:10pm Family history of genetic disorder [...] Supervision of high-risk acute May 12 5:52am [facility] Work Phone: 1(802) 910-354404-04-2025 Evaluation note* Diagnosis Onset Date Resolution Status [...] 10, 2025 2:11pm Depression with anxiety acute [facility] 2024 2:11pm Family history of genetic disorder [...] 26, 2025 2:10pm Depression with anxiety acute [facility] 2024 2:10pm Family history of genetic disorder [...] high-risk acute April 07, 2025 9 :54am [facility] Work Phone: 1(478) 252-418404-04-2025 Evaluation note* Diagnosis Onset Date Resolution Status Admit Date AMA (advanced maternal age) multigravida 35+ acute January 01, 2025 10:03am Conceived by in vitro fertilization acute January 01, 2025 10:03am Depression with anxiety acute [facility] 2024 10:03am Family history of genetic disorder [...] 2025 2:11pm Depression with anxiety acute [facility] 2024 2:11pm Family history of genetic disorder [...] 2025 2:10pm Depression with anxiety acute [facility] 2024 2:10pm Family history of genetic disorder [...] 2025 1:59pm Depression with anxiety acute [facility] 2024 1:59pm Family history of genetic disorder [...] of high-risk acute April 20, 2025 1:59pm [facility] [employer] [facility] Work Phone: 1(884) 293-917704-04-2025 Evaluation note* Diagnosis Onset Date Resolution Status [...] 26, 2025 2:10pm Depression with anxiety acute [facility] 2024 2:10pm Family history of genetic disorder [...] 2025 9 :54am Depression with anxiety acute [facility] 2024 9:54am Family history of [...] of high-risk acute April 28, 2025 2:01pm [facility] Work Phone: 1([phone]) 792-673203-06-2025 Evaluation note* Diagnosis Onset Date Resolution Status [...] acute February 26, 2025 8 :34am [facility] Work Phone: 1(540) 443-965303-06-2025 Evaluation note* Diagnosis Onset Date Resolution Status [...] of high-risk acute March 10, 2025 2:11pm [facility] Work Phone: 1([phone]) 397-108203-06-2025 Evaluation note* Diagnosis Onset Date Resolution Status [...] 2025 2:10pm Depression with anxiety acute [facility] 2024 2:10pm Family history of genetic disorder [...] of high-risk acute March 26, 2025 2:10pm [facility] Work Phone: 1(284) 893-881402-06-2025 Evaluation note* Diagnosis Onset Date Resolution Status [...] high-risk acute February 26, 2025 8 :34am [facility] [employer] [facility] Work Phone: 1(439) 479-292802-04-2025 NoteHNO ID: [id number] Author: DEMARCUS MINER PA-C Service: ? Author Type: Physician [employer] Fo[employer] Kiss Maker Type: Progress Notes Filed: 11/03/2024 16:55 Note Text: Telemedicine Visit - Distance Health Virtual Visit Note Patient seen on nCrypted Cloud Video Visit platform. Location of patient: [place] I have communicated my name and active licensure. The patient's identity and physical location were verified at the time of this visit. Either the patient or their legal sales representative [employer] has been informed of the risks and [...] person care - All questions answered [facility]02-04-2025 History of Present illness Narrative* Demarcus Miner PA-C - 11/03/2024 4:51 PM EST Telemedicine Visit - Distance Health Virtual Visit Note Patient seen on n[employer]rypted Cloud Video Visit platform. Location of patient: [place] I have communicated my name and active licensure. The patient's identity and physical location wereverified at the time of this visit. Either the patient or their legal sales representative [employer] has been informed of the risks and [...] answered Demarcus Miner PA-C documented in this encounterPrem[facility] Telephone encounter Note * Telephone Encounter - Marta Del Valle MD - 07/29/2024 5:17 PM EDT Due for yearly follow up - must be seen to get additional re [facility]2024 Miscellaneous Notes* Telephone Encounter - Marta Del Valle MD - 07/29/2024 5:17 PM EDT Due for yearly follow up - must be seen to get additional re documented in this encounterOSC[facility]04-14-2024 NoteHNO ID: [id number] Author: GINA SAHU APRN.[employer] Service: ? Author Type: Nurse Practitioner Type: [...] Patient agreeable to treatment plan. Gina Sahu APRN.[facility]04-14-2024 History of Present illness Narrative* Gina Sahu APRN.[facility] - 01/12/2024 11:06 AM EDT CC: Patient [...] Patient agreeable to treatment plan. Gina Sahu APRN.[employer] documented in this encounterPremier Health [facility]03-11-2024 Procedure [facility]04-12-2023 History of Present illness Narrative* Lynne Landaverde - 01/09/2023 9:00 AM EDT Patient offered a medical highway maintenance supervisor for sensitive exam. Pt declined documented in [facility] encounterEast [facility]12-[facility]-2022 History of Present illness Narrative* Maile [...] . Physical Exam Exam conducted with a highway maintenance supervisor present. Constitutional: General: She is not in [...] pumping but will send e consult for precision farming specialist to ensure no additional work up indicated. Normal breast exam, normal TFTs and prolactin documented in this encounterOS[facility]12-07-2022 NoteSatisfactory For Evaluation; Endocervical/Transformation Zone Component Present.[facility] HospitalComment on above:Order Comment: Patient'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Performed By: #### THINP #### [facility] (DEFAULT) [address] [id number] History of Present illness Narrative* Faith Starkey [...] in one year. documented in this encounterOSU [facility] Hospital12-07-2022 Miscellaneous Notes* Addendum Note - Chris Whitney MA - 09/05/2022 1:30 PM ESTAddended by: CHRIS WHITNEY on: 09/05/2022 02:34 PM Modules accepted: Orders * Addendum Note - Faith Starkey MD - 09/05/2022 1:30 PM ESTAddended by: FAITH STARKEY on: 09/05/2022 03:03 PM Modules accepted: Orders documented in this encounterEast [facility] Hospital12-07-2022 Note* Addendum Note - Chris Whitney MA - 09/05/2022 1:30 PM ESTAddended by: CHRIS WHITNEY on: 09/05/2022 02:34 PM Modules accepted: Orders [facility]12-07-2022 Note* Addendum Note - Faith Starkey MD - 09/05/2022 1:30 PM ESTAddended by: FAITH STARKEY on: 09/05/2022 03:03 PM Modules accepted: Orders [facility]08-18-2021 History of Present illness Narrative* Faith [...] Rh neg Posterior placenta Discussed (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 Objective: Assessment: 31w5d Plan: 1. Has US in 3 weeks 2. RTC 2-4 weeks documented in this encounterOSU Green Cross HospitalEvaluation note* Diagnosis Supervision of normal first , antepartum- Primary [facility] Well woman exam with routine gynecological exam- Primary Routine gynecological examination [facility] Diagnosis Well adult exam- Primary [...] full remission [facility] Diagnosis Breast pain, right Mastodynia [facility] Diagnosis Onset Date Resolution Status Infertility associated with anovulation acute PCOS (polycystic ovarian syndrome) acute Encounter for routine gynecological examination noneactive PCOS (polycystic ovarian syndrome) acute [facility] Work Phone: Evaluation note* Diagnosis URI, acute- Primary Acute upper respiratory infections of unspecified site Acute otitis media, right Unspecified otitis media Acute cough [facility] Diagnosis Encounter for assisted reproductive fertility procedure cycle documented in this encounter [facility] Work Phone: Evaluation note* Diagnosis Encounter for assisted reproductive fertility procedure cycle documented in this encounter [facility] Work Phone: Evaluation note* Diagnosis Encounter for assisted reproductive fertility procedure cycle documented in this encounter [facility] Work Phone: Evaluation note* Diagnosis Encounter for assisted reproductive fertility procedure cycle documented in this encounter [facility] Work Phone: Evaluation note* Diagnosis Encounter for test, result positive (HHS-HCC) documented in this encounter [facility] Work Phone: Evaluation note* Diagnosis Encounter for test, result positive (HHS-HCC) documented in this encounter [facility] Work Phone: Evaluation note* Diagnosis Viral URI with cough- Primary Acute upper respiratory infections of unspecified site [facility] Attachments The following attachments cannot be sent through Care Everywhere. * Breast Health ([facility]) (Congolese) * Breast Self-Exam (Congolese) [facility] Author Apple Lao [facility] Note Date/Time February 26, 2025 9:38a m [facility] [address], [address] [place] [address] OFFICE VISIT Date of Service: 02/26/25 MR#: [id number] Acct: [id number] Name: BARBY CABALLERO Rep #: [id number] : 1990 Provider: Dr. 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 Date Name GA/Weeks Outcome Route Bth Weight Infant Gen Labor Lgth Anesthesia Del Locatn Provider FOB 07/18/21 Larry 40 live - full term 7lbs 7oz Male general [facility] [place] Delivery Date: 07/18/21 Last [...] Performing Provider: Apple Lao MD Performing Location: [facility] Administered by: Aziza Olson on 02/26/25 08:56 Dose Route Admin Location Dispensed Lot Number Expiration Date NDC House Wrecker 1,500 unit IM right gluteal 1 ea [id number] 03/05/27 [phone] [facility] Results POC Urinalysis 2 Dip (Clinic) [...] Cosigner Signature: Date (if applicable) CC: ~ [facility] Work Phone: Progress note Author Edel Diehl [facility] Note Date/Time April 07, 2025 10:55 am [facility] [address] [place] [address], [address] [place] [address] OFFICE VISIT Date of Service: 04/07/25 MR#: [id number] Acct: [id number] Name: DONGKiranBARBYVICKI BLAND Rep #: [id number] : 1990 Provider: Dr. 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 Date Name GA/Weeks Outcome Route Bth Weight Gen Labor Lgth Anesthesia Del Locatn Provider FOB 07/18/21 Larry 40 live - full term 7lbs 7oz Male [facility] [place] Delivery Date: 07/18/21 Last [...] transfer. declines NIPT had genetic testing at [facility] 11/05/24 -?-?-?-?-?-?-?-?-?-?--?-?- 12w 1d 260 lb (-4 [...] Symptoms of Preeclampsia, Infant Feeding No , Portal Education and Family Medical Leave or Disability [...] Cosigner Signature: Date (if applicable) CC: ~ [facility] Work Phone: Revlmm for referral (narrative)No reason for referral [facility] Work Phone: Reason for visit Narrative* Imaging (Routine) - Authorized Specialty Diagnoses / Procedures Referred By Adia vicente Referred To Contact Radiology Diagnoses Encounter for assisted reproductive fertility procedure cycle Procedures US PELVIS TRANSABDOMINAL WITH TRANSVAGINAL Levon Braxton MD [address] [facility] [place] [address] Phone: tel: fax: Referral ID Status Reason Start Date Expiration Date Visits Requested Visits Authorized [id number] Authorized Perform Procedure 4 08/13/2025 1 1 [facility] Work Phone: Reason for visit Narrative* Imaging (Routine) - Authorized Specialty Diagnoses / Procedures Referred By Contac t Referred To Contact Radiology Diagnoses Encounter for assisted reproductive fertility procedure cycle Procedures US PELVIS TRANSABDOMINAL WITH TRANSVAGINAL Levon Braxton MD [address] [place] [address] Phone: tel: fax: Referral ID Status Reason Start Date Expiration Date Visits Requested Visits Authorized [id number] Authorized Perform Procedure 4 08/14/2025 1 1 [facility] Work Phone: Reason for visit Narrative* Imaging (Routine) - Authorized Specialty Diagnoses / Procedures Referred By Contac t Referred To Contact Radiology Diagnoses Encounter for test, result positive (HHS-HCC) Procedures US PELVIS OB TRANSABDOMINAL W TRANSVAGINAL UP TO 1ST TRIMESTER Levon Braxton MD [address] [place] [address] Phone: tel: fax: Referral ID Status Reason Start Date Expiration Date Visits Requested Visits Authorized [id number] Authorized Perform Procedure 4 09/15/2025 1 1 [facility] Work Phone: Reason for visit Narrative* Imaging (Routine) - Authorized Specialty Diagnoses / Procedures Referred By Contac t Referred To Contact Radiology Diagnoses Encounter for test, result positive (HHS-HCC) Procedures US PELVIS OB TRANSABDOMINAL W TRANSVAGINAL UP TO 1ST TRIMESTER Levon Braxton MD [address] [place] [address] Phone: tel: fax: Referral ID Status Reason Start Date Expiration Date Visits Requested Visits Authorized [id number] Authorized Perform Procedure 4 09/25/2025 1 1 [facility] Work Phone: History of Present Illness * Janes Gutiérrez MD - 08/20/2018 9:07 AM EST Formatting of this note may be different from the original. [facility] [address] [place] [id number] Hematology and Oncology Progress Note Patient Name: Barby Caballero MR #: [id number] : 1990 Date of Service: 08/20/18 Clinician: Janes Gutiérrez MD DIAGNOSIS Leukocytosis, etiology unknown. Dictation on: 08/20/2018 9:09 AM by: JANES GUTIÉRREZ [[id number]] History of Present Illness: Ms. Barby Caballero [...] bowel disease or arthritis. 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 For some reason, her CRP has been high over the last year. By reviewing her chart, she had leukocytosis for almost a year now. She is not on any steroid product. Dictation on: 08/20/2018 9:36 AM by: JANES GUTIÉRREZ [[id number]] Allergies Allergen Reactions Amoxicillin Diarrhea and GI [...] on: 08/20/2018 9:37 AM by: JANES GUTIÉRREZ [[id number]] Orders Placed This Encounter CBC and Differential Janes Gutiérrez MD CC: Marta Del Valle MD in this encounter* Janes Gutiérrez MD - 01/22/2020 1:48 PM EDT [facility] [address] [facility] [phone] Hematology and Oncology Progress Note Patient Name: Barby Caballero MR #: [id number] : 1990 Date of Service: 02/18/2019 Clinician: [...] bowel disease or arthritis. 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 For some reason, her CRP has been [...] back negative. She is clinically asymptomatic. 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 CBC stable with WBC 5.15, Hgb 13.5 [...] file Gets together: Not on file Attends nondenominational service: Not on file Active member of [...] Skin Lesion Additional comments: Left abdomen since field hand unchanged Last edited by Will Prabhakar MD [...] - 07/27/2020 10:40 AM EDT Patient Name: [facility] Location: Barby Caballero [address] [place] [address] Date Of : Date Of Visit: 1990 07/27/2020 MRN# Provider: [id number] Marli Thompson PA-C Chief Complaint Patient presents [...] . famotidine (PEPCID) 40 MG tablet vit 60-zpid-sehfr-dha ( + DHA) 28 mg iron- 975 [...] go immediately to ED for further evaluation [facility] COVID-19 Post-swabbing Instructions We will do our best to update you as soon as we receive your test results, but if we had to send your test to be run at the lab, you may see the results on MyChart or receive a call from [facility] before we are able to contact [...] results. - If you have an active [employer] account, and your COVID-19 test is negative (not detected), then you will be notified through your [employer] account. You should call the urgent care if you have any further questions. - If your COVID-19 test is positive (detected), you will receive a phone call to discuss your results and answer any questions you might have at that time. Please make sure [facility] has your updated phone number so we can contact you. [facility] will notify the [place] Department of [facility] of any positive results to comply with [...] and warm water and/or alcohol based hand margin analyst, scrubbing your hands for at least 20 [...] Other COVID Questions? CDC - https://www.cdc.gov/coronavirus/2019-ncov/index.html - https://www.cdc.gov/coronavirus/2019-ncov/uy-cgl-okr-sick/quarantine.html [place] Department of Health - Website: https://coronavirus.[place].gov/wps/portal/gov/covid-19/home - Hotline: 084-3-AIY-ODH (599-035-1600) [facility]: https://blog.[employer]/series/qvqgn-20-vntvzvjeqqy-toolkit/ documented in this encounter* Janes Gutiérrez MD - 08/19/2019 11:05 AM EST [facility] [address] [facility] [phone] Hematology and Oncology Progress Note Patient Name: Barby Caballero MR #: [id number] : 1990 Date of Service: 08/19/19 Clinician: [...] bowel disease or arthritis. 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 For some reason, her CRP has been [...] days. No fever or chills. 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 Dictation on: 08/19/2019 11:07 AM by: JANES GUTIÉRREZ [[id number]] Allergies Allergen Reactions Amoxicillin Diarrhea and GI [...] file Gets together: Not on file Attends nondenominational service: Not on file Active member of [...] on: 08/19/2019 11:08 AM by: JANES GUTIÉRREZ [[id number]] Orders Placed This Encounter famotidine (PEPCID) 40 [...] sent through Care Everywhere. * Abdominal Pain (Congolese) documented in this encounter* Instructions* Laurent Duque MD - 03/19/2019 Continue taking your home medications as prescribed. Follow-up with your family doctor first available appointment. Return to the emergency room for any worsening symptoms or concerns * Attachments The following attachments cannot be sent through Care Everywhere. 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 No November 10, 2024 8:21pm Advance Directive Response Recorded Date/ Time Do you have a Healthcare Power of Sustainability Communicator? unsu re May 12, 2025 6:17am Summary Purpose Family History No Family History Records Found Relationship Condition Age at Onset Recorded Date/T sherri mother Hypertension Unknown grandfather Cardiac disease Unknown Hypertension Unknown Diabetes mellitus Unknown Malignant neoplasm Unknown Macular degeneration Unknown grandmother Macular degeneration Unknown Instructions * Patient Instructions* Sandie Tyler MA - 08/23/2020 9:02 AM EST Effective 10/14/2019, all [employer] users will be automatically enrolled in paperless billing in an effort to save our environment by eliminating waste & reduce healthcare costs. A monthly notification will be sent to your e-mail address on file indicating you have a new billing statement available in [employer]. If you prefer to receive paper statements, log into [employer] at [employer] to update your e-mail, text and mail preferences (opting out of paperless billing). Please direct further questions to Customer Service at [phone] or [email or web address]. documented in this encounter* Patient Instructions* Marli [...] go immediately to ED for further evaluation [facility] COVID-19 Post-swabbing Instructions We will do our best to update you as soon as we receive your test results, but if we had to send your test to be run at the lab, you may see the results on MyChart or receive a call from [facility] before we are able to contact [...] results. - If you have an active [employer] account, and your COVID-19 test is negative (not detected), then you will be notified through your [employer] account. You should call the urgent care if you have any further questions. - If your COVID-19 test is positive (detected), you will receive a phone call to discuss your results and answer any questions you might have at that time. Please make sure [facility] has your updated phone number so we can contact you. [facility] will notify the [facility] of any positive results to comply with [...] and warm water and/or alcohol based hand margin analyst, scrubbing your hands for at least 20 [...] Other COVID Questions? CDC - https://www.cdc.gov/coronavirus/2019-ncov/index.html - https://www.cdc.gov/coronavirus/2019-ncov/ue-wcy-jpr-sick/quarantine.html [place] Department of Health - Website: https://coronavirus.[place].gov/wps/portal/gov/covid-19/home - Hotline: 000-8-UGH-ODH (680-470-2077) [facility]: https://blog.[employer]/series/nbjpo-07-itaxeoehotf-toolkit/ documented in this encounter Reason for Referral Specialty Diagnoses / Procedures Referred By Adia t Referred To Contact Diagnoses Prolonged Marta Del Valle MD [address] [place] [address] Referral ID Status Reason Start Date Expiration Date V isits Requested Visits Authorized [id number] New Request 09/27/2022 10/22/2023 1 1 Specialty Diagnoses / Procedures Referred By Adia t Referred To Contact Radiology Diagnoses Encounter for assisted reproductive fertility procedure cycle Procedures US PELVIS TRANSABDOMINAL WITH TRANSVAGINAL US pelvis transvaginal Levon Braxton MD [address] [place] [address] Referral ID Status Reason Start Date Expiration Date Visits Requested Visits Authorized [id number] Pending Review Perform Procedure 06/11/2024 06/11/2025 1 1 Specialty Diagnoses / Procedures Referred By Adia t Referred To Contact Radiology Diagnoses Encounter for assisted reproductive fertility procedure cycle Procedures GERRY US Pelvis Limited Follicles - Follicle Studies Performed Levon Braxton MD [address] [place] [address] Referral ID Status Reason Start Date Expiration Date Visits Requested Visits Authorized [id number] Authorized Perform Procedure 06/19/2024 06/19/2025 1 1 Specialty Diagnoses / Procedures Referred By Adia t Referred To Contact Radiology Diagnoses Encounter for assisted reproductive fertility procedure cycle Procedures US PELVIS TRANSABDOMINAL WITH TRANSVAGINAL Levon Braxton MD [address] [facility] [place] [address] Referral ID Status Reason Start Date Expiration Date Visits Requested Visits Authorized [id number] Authorized Perform Procedure 06/15/2024 06/15/2025 1 1 Referral ID Status Reason Start Date Expiration Date Visits Requested Visits Authorized [id number] Authorized Perform Procedure 06/22/2024 06/22/2025 1 1 Referral ID Status Reason Start Date Expiration Date Visits Requested Visits Authorized [id number] Authorized Perform Procedure 06/15/2024 06/15/2025 1 1 Referral ID Status Reason Start Date Expiration Date Visits Requested Visits Authorized [id number] Authorized Perform Procedure 06/24/2024 06/24/2025 1 1 Referral ID Status Reason Start Date Expiration Date Visits Requested Visits Authorized [id number] Authorized Perform Procedure 06/15/2024 06/15/2025 1 1 Chief Complaint and Reason for Visit 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2024 2:22pm Depression with anxiety November 05 2:22pm Family history of genetic disorder [facility]2024 2:22pm GERD (gastroesophageal reflux disease) F [facility] 2024 2:22pm H/O section November 05, 2024 2:22pm Infertility associated with anovulation November 05, 2024 2:22pm Marijuana use November 05, 2024 2 :22pm Obesity affecting October 2:22pm PCOS (polycystic ovarian syndrome) [facility]2024 2:22pm November 05, 2024 2 :22pm Rh negative status during 2024 2:22pm Sleep apnea November 05, 2024 2 :22pm Supervision of high-risk [facility] 2024 2:22pm AMA (advanced maternal age) multigravida 35+ December 03, 2024 1:25pm Conceived by in vitro fertilization [facility] 2024 1:25pm Depression with anxiety December 03, 2024 1:25pm Family history of genetic disorder December 03, 2024 1:25pm GERD (gastroesophageal reflux disease) [facility] 2024 1:25pm H/O section December 03, 2024 [...] 2025 2:11pm GERD (gastroesophageal reflux disease) [facility] 2024 2:11pm H/O section March 10, 2025 [...] 2025 2:10pm GERD (gastroesophageal reflux disease) [facility] 2024 2:10pm H/O section March 26, 2025 [...] 2025 2:11pm GERD (gastroesophageal reflux disease) [facility] 2024 2:11pm H/O section March 10, 2025 [...] 2025 2:10pm GERD (gastroesophageal reflux disease) [facility] 2024 2:10pm H/O section March 26, 2025 [...] 2025 9:54am GERD (gastroesophageal reflux disease) [facility] 2024 9:54am H/O section April [...] 2025 2:10pm GERD (gastroesophageal reflux disease) [facility] 2024 2:10pm H/O section March 26, 2025 [...] 2025 9:54am GERD (gastroesophageal reflux disease) J [facility] 2024 9:54am H/O section April [...] 2025 2:10pm GERD (gastroesophageal reflux disease) [facility] 2024 2:10pm H/O section March 26, 2025 [...] 2025 9:54am GERD (gastroesophageal reflux disease) [facility] 2024 9:54am H/O section April [...] 10, 2025 2:11pm GERD (gastroesophageal reflux disease) [facility] 2024 2:11pm H/O section March 10, 2025 [...] 2025 2:10pm GERD (gastroesophageal reflux disease) [facility] 2024 2:10pm H/O section March 26, 2025 [...] BILATERAL MAMMO DIAGNOSTIC BILATERAL Lawrence Young MD [address] [place] [phone] Referral ID Status Reason Start Date Expiration Date V isits Requested Visits Authorized [id number] New Request 12/19/2022 01/13/2024 1 1 Reason Comments Cough Fevers x4 days Specialty Diagnoses / Procedures Referred By Adia vicente Referred To Contact Radiology Diagnoses Encounter for assisted reproductive fertility procedure cycle Procedures US PELVIS TRANSABDOMINAL WITH TRANSVAGINAL US pelvis transvaginal Levon Braxton MD [address] [place] [address] Referral ID Status Reason Start Date Expiration Date Visits Requested Visits Authorized [id number] Pending Review Perform Procedure 06/11/2024 06/11/2025 1 1 Specialty Diagnoses / Procedures Referred By Adia vicente Referred To Contact Radiology Diagnoses Encounter for assisted reproductive fertility procedure cycle Procedures US PELVIS TRANSABDOMINAL WITH TRANSVAGINAL Levon Braxton MD [address] [place] [address] Referral ID Status Reason Start Date Expiration Date Visits Requested Visits Authorized [id number] Authorized Perform Procedure 06/15/2024 06/15/2025 1 1 Referral ID Status Reason Start Date Expiration Date Visits Requested Visits Authorized [id number] Authorized Perform Procedure 06/15/2024 06/15/2025 1 1 Referral ID Status Reason Start Date Expiration Date Visits Requested Visits Authorized [id number] Authorized Perform Procedure 06/15/2024 06/15/2025 1 1 Reason Comments Cough Max Alan PA-C - 07/29/2019 1:14 PM Mirta Davenport RN - 07/29/2019 12:15 PM Mirta Davenport RN - 07/29/2019 10:40 AM Rebeca Jiménez RN - 07/29/2019 10:25 AM EDT ED Notes (unrecognized secti on and content) [facility] NAME: Barby Caballero PCP: Marta Del Valle MD AGE: 28 y.o. CSN: [id number] ED Course / Medical Decision Making: After [...] does note that she has a Halloween libertarian she is hosting this weekend and is [...] file Gets together: Not on file Attends nondenominational service: Not on file Active member of [...] Procedure Abnormality Status --------- ------ CBC Auto Differential[[id number]] Abnormal Final result Please view results for [...] Otherwise unremarkable right upper quadrant abdominal ultrasound. [employer] Workstation ID: [id number] No current facility-administered medications [...] ER worsening or new concerning symptoms [address] [facility] [address] Contact information for after-discharge care Follow-up information has not been specified. New Prescriptions ondansetron (Zofran ODT) 4 MG disintegrating tablet Dissolve 1 (one) tablet (4 mg total) on top of tongue every 6 (six) hours as needed for nausea . Max MATTA PA-C Emergency Department Physician Sea Foam Kiss Maker (Please note that portions of this note [...] with steady gait Associated Order(s): EKG 12-lead [facility] PCP - Marta Del Valle MD Chief Complaint Patient presents with Chest Pain HPI 28-year-old white female with a history of reflux, depression, anxiety, and irritable bowel states that shortly after 6 PM she had some Vietnamese fries and drank a beer and then [...] Marta Del Valle MD. Specialty: Internal Medicine [address] [place] [address] [facility] [address] Contact information for after-discharge care [...] file Gets together: Not on file Attends nondenominational service: Not on file Active member of [...] atelectatic change with no other acute process. [facility] Workstation ID: [id number] No results found. Medications [...] expedite correspondence this note was generated by [employer]ent[employer] voice recognition software. Some grammatical or spelling [...] Procedure Abnormality Status --------- ------ CBC Auto Differential[[id number]] Abnormal Final result Please view results for [...] took protonix at dinner which she had japanese fries and 1 [place] drink. documented [...] section and content) DATE CREATED AUTHOR 07/27/2020 [facility] DATE CREATED AUTHOR AUTHOR'S ORGANIZ ATION 08/23/2020 [facility] DATE CREATED AUTHOR AUTHOR'S ORGANIZ ATION 10/04/2021 [facility] DATE CREATED AUTHOR AUTHOR'S ORGANIZ ATION 10/06/2021 [facility] DATE CREATED AUTHOR AUTHOR'S ORGANIZ ATION 10/08/2021 [facility] DATE CREATED AUTHOR AUTHOR'S ORGANIZ ATION 05/04/2023 [facility] DATE CREATED AUTHOR AUTHOR'S ORGANIZ ATION 10/09/2024 [facility] DATE CREATED AUTHOR AUTHOR'S ORGANIZ ATION 10/09/2024 [facility] DATE CREATED AUTHOR AUTHOR'S ORGANIZ ATION 11/05/2024 [facility] DATE CREATED AUTHOR AUTHOR'S ORGANIZ ATION 05/10/2025 [facility] DATE CREATED AUTHOR AUTHOR'S ORGANIZ ATION 05/23/2025 [facility] Care Teams (unrecognized sec tion and content) Shaker Washer Relationship Specialty Start Date End Date Marta Del Valle MD PCP - General Internal Medicine 12/09/13 Shaker Washer Relationship Specialty Start Date End Date Marta Del Valle MD PCP - General Internal Medicine 12/09/13 Faith Starkey MD [address] [phone] PCP - OBGYN Obstetrics & Gynecology 07/17/21 Shaker Washer Relationship Specialty Start Date End Date Marta Del Valle MD PCP - General Internal Medicine 12/09/13 Faith Starkey MD [address] [phone] PCP - OBGYN Obstetrics & Gynecology 07/17/21 Shaker Washer Relationship Specialty Start Date End Date Faith Starkey MD [address] [phone] PCP - OBGYN Obstetrics & Gynecology 07/17/21 Marta Del Valle MD [address] [place] [address], [place] [phone] PCP - General Internal Medicine 01/09/23 Lawrence Young MD [address] [place] [address], [place] [phone] Referring Provider Internal Medicine 01/09/23 Team Status: [...] Primary Care Physician Primary Care Provider Active Shaker Washer Relationship Specialty Start Date End Date Faith Starkey MD [address] [phone] PCP - OBGYN Obstetrics & Gynecology 07/17/21 Marta Del Valle MD [address] [place] [address], [place] [phone] PCP - General Internal Medicine 01/09/23 Lawrence Young MD [address] [place] [address], [place] [phone] Referring Provider Internal Medicine 01/09/23 Shaker Washer Relationship Specialty Start Date End Date [place]ffen Eisenberg [place] [address] [place] [phone] PCP - General Internal Medicine 08/14/24 Shaker Washer Relationship Specialty Start Date End Date Generic Provider, No [place] [address] PCP - General Rope Machine Setter 06/15/24 Shaker Washer Relationship Specialty Start Date End Date Generic Provider, No [place] [address] PCP - General Rope Machine Setter 06/15/24 Shaker Washer Relationship Specialty Start Date End Date Generic Provider, No [place] [address] PCP - General Rope Machine Setter 06/15/24 Shaker Washer Relationship Specialty Start Date End Date Generic Provider, No [place] [address] PCP - General Rope Machine Setter 06/15/24 Shaker Washer Relationship Specialty Start Date End Date Steffen Eisenberg MD [address] [facility] [phone] PCP - General Internal Medicine 08/14/24 Shaker Washer Relationship Specialty Start Date End Date Steffen Eisenberg MD [address] [place] [phone] PCP - General Internal Medicine 08/14/24 Team [...] Active Start: April 07, 2025 Dr. Edel uBllock , DO Attending Provider Activ e Start: [...] 2025 End: April 15, 2025 Dr. Edel Bulolck DO Referring Provider Activ e Start: April [...] Inactive Member Role/Relationship Status Dates Dr. Steffen Eisebnerg MD Primary Care Provider Active Start: February [...] or prosecute any alcohol or drug abuse patient.[facility] the event this information is protected by the Federal Confidentiality of Alcohol and Drug Abuse Patient Records regulations: The Federal rules restrict any use of the information to criminally investigate or prosecute any alcohol or drug abuse patient.[facility] FOR RECORDS PERTAINING TO PATIENTS WHO ARE [...] BE BASED ON THE PRIMARY CLINICAL RECORDS. [facility] [employer] [facility]. provides no warranty or guarantee of the accuracy or completeness of information in this document.
[2025-05-24] MEDS: 0.9% Normal Saline (1000mL) 1,000 ML 100 ML IV (21:42)
[2025-05-24 22:58] LABS: Hematocrit 28.6 % (37-47); Hemoglobin 9.5 g/dL (12.0-15.0); Immature Granulocytes Count 0.160 X10^3/uL (0.0-0.0); Mean Corp Hgb Conc 33.2 g/dL (32-36); Mean Corpuscular Volume 88.0 fL (81-99); Mean Platelet Vol. 8.3 fl (6.2-12.0); NRBC Flagged by Analyzer 0 % (0-5); Platelet Count 378 K/mm3 (150-450); RBC Distribution Width CV 13.4 % (11.6-14.6); RBC Distribution Width SD 43.4 fl (35.1-43.9); Red Blood Count 3.25 M/mm3 (4.2-5.4); White Blood Count 20.4 K/mm3 (4.4-11.0)
--- NOTE | 2025-05-24 22:59 | NURSING ---
pt reports she changed her jason pad once this evening, mainly to freshen up while getting ready for bed. informed patient to alert nursing of any changes, including heavy bleeding, any clots or s/s of bright red bleeding. stach on the monitor, heart rate is improving and noted at 115. will continue to monitor vs, fever. pt denies needs at this time. plans on pumping at midnight, 0300 and 0600.
[2025-05-25] VITALS (18 sets, daily range): BP systolic 99–132; BP diastolic 10–77; PULSE 93–130; RESP 15–31; TEMP 36.7–37.9; O2SAT 24–100
[2025-05-25] MEDS: 0.9% Normal Saline (1000mL) 1,000 ML 100 ML IV (06:28)
[2025-05-25 06:30] LABS: Hematocrit 26.7 % (37-47); Hemoglobin 8.9 g/dL (12.0-15.0); Immature Granulocytes Count 0.140 X10^3/uL (0.0-0.0); Mean Corp Hgb Conc 33.3 g/dL (32-36); Mean Corpuscular Volume 88.4 fL (81-99); Mean Platelet Vol. 8.2 fl (6.2-12.0); NRBC Flagged by Analyzer 0 % (0-5); Platelet Count 343 K/mm3 (150-450); RBC Distribution Width CV 13.5 % (11.6-14.6); RBC Distribution Width SD 43.8 fl (35.1-43.9); Red Blood Count 3.02 M/mm3 (4.2-5.4); White Blood Count 18.8 K/mm3 (4.4-11.0)
[2025-05-25] MEDS: Piperacil/Tazobactam 3.375 GM in 0.9% Normal Saline (50mL MB+) 50 ML IV ×3 (06:30→22:16)
[2025-05-25 06:38] LABS: Prothrombin Time (Protime)PT. 15.5 SECONDS (11.7-14.9)
[2025-05-25 07:02] LABS: AST(SGOT) 22 U/L (<=31); Alanine Aminotransfer ALT/SGPT 22 U/L (<=34); Albumin, Serum 3.2 g/dL (3.5-5.0); Alkaline Phosphatase 90 U/L (35-104); Anion Gap 12 (5-15); BUN 9 mg/dL (4-19); BUN/Creat Ratio 16.4 RATIO (10-20); Calcium,Total 7.6 mg/dL (7.6-11.0); Carbon Dioxide 17.3 mmol/L (21.0-32.0); Chloride 115 mmol/L (98-108); Estimated Creatinine Clearance 176.53 ml/min (50-250); Globulin 2.2 g/dL (2.2-4.2); Glucose 76 mg/dL (70-99); Potassium 3.0 mmol/L (3.3-5.1)
--- NOTE | 2025-05-25 07:28 | EKG12_ITS ---
Test Reason : PALP Blood Pressure : */* mmHG Vent. Rate : 118 BPM Atrial Rate : 118 BPM P-R Int : 126 ms QRS Dur : 74 ms QT Int : 310 ms P-R-T Axes : 56 22 -14 degrees QTcB Int : 434 ms Sinus tachycardia Otherwise normal ECG When compared with ECG of 24-May-2025 14:05, No significant change was found Confirmed by VITOR VIRAMONTES ([id number]), editorial director RAEGAN WHITE ([id number]) on 05/28/2025 5:45:57 AM Referred By: JULIAN Confirmed By: IVTOR VIRAMONTES
--- NOTE | 2025-05-25 07:40 | PCM.PN.OB ---
Subjective Subjective patient is standing at bedside. She appears somewhat diaphoretic and state that her heart is pounding. She denies worsening pain but does have some dysuria this am. Her urine analysis was negative for UTI. She is on zosyn over night. She has been NPO since midnight. Objective Data Objective Data Vital Signs: Vital Signs Temp Pulse Resp BP Pulse Ox O2 Del Method 98.3 F 120 H 15 128/70 H 98 Room Air 05/25/25 06:32 05/25/25 06:32 05/25/25 06:32 05/25/25 04:00 05/25/25 06:32 05/25/25 06:32 Oxygen Delivery Method Room Air Weight: 258 lb 2.581 oz Body Mass Index (BMI) 47.2 Intake & Output: Intake and Output for Last 24 Hours 05/23/25 05/24/25 05/25/25 23:59 23:59 23:59 Intake Total 2049 876.67 / 876.67 Balance 2049 876.67 / 876.67 Lab / Micro Data 05/25/25 06:15 05/25/25 06:15 Labs: Laboratory Results - last 24 hr 05/24/25 14:30: WBC 18.7 H, RBC 3.36 L, Hgb 9.9 L, Hct 29.4 L, MCV 87.5, MCH 29.5, MCHC 33.7, RDW Std Deviation 42.8, RDW Coeff of Tanner 13.3, Plt Count 396, MPV 8.4, Immature Gran % (Auto) 0.600, Neut % (Auto) 89.0 H, Lymph % (Auto) 4.1 L, [place] % (Auto) 5.7, Eos % (Auto) 0.4, Baso % (Auto) 0.2, Absolute Neuts (auto) 16.6 H, Absolute Lymphs (auto) 0.76 L, Nucleated RBC % 0, PT 12.8, INR 1.0, APTT 22.5 L, Sodium 142, Potassium 3.5, Chloride 111 H, Carbon Dioxide 18.0 L, Anion Gap 13, BUN 9, Creatinine 0.54 L, Estim Creat Clear Calc 177.83, Est GFR (MDRD) Non-Af 123, BUN/Creatinine Ratio 15.9, Glucose 105 H, Lactic Acid < 1.0, Calcium 7.7 05/24/25 15:38: Urine Color Yellow, Urine Clarity Clear, Urine pH 7.0, Ur Specific [place] 1.005, Urine Protein 15 H, Urine Glucose (UA) Normal, Urine Ketones Negative, Urine Occult Blood 150 H, Urine Nitrite Negative, Urine Bilirubin Negative, Urine Urobilinogen Normal, Ur Leukocyte Esterase 100 H, Urine RBC 0-5 SEEN, Urine WBC 0-5 SEEN, Ur Squamous Epith Cells 0-5 SEEN, Urine Bacteria 0 SEEN, Urine Mucus 0 SEEN 05/24/25 22:48: WBC 20.4 H, RBC 3.25 L, Hgb 9.5 L, Hct 28.6 L, MCV 88.0, MCH 29.2, MCHC 33.2, RDW Std Deviation 43.4, RDW Coeff of Tanner 13.4, Plt Count 378, MPV 8.3, Immature Gran % (Auto) 0.800, Neut % (Auto) 87.0 H, Lymph % (Auto) 5.2 L, [place] % (Auto) 6.7, Eos % (Auto) 0.1, Baso % (Auto) 0.2, Absolute Neuts (auto) 17.8 H, Absolute Lymphs (auto) 1.07, Nucleated RBC % 0 05/25/25 06:15: WBC 18.8 H, RBC 3.02 L, Hgb 8.9 L, Hct 26.7 L, MCV 88.4, MCH 29.5, MCHC 33.3, RDW Std Deviation 43.8, RDW Coeff of Tanner 13.5, Plt Count 343, MPV 8.2, Immature Gran % (Auto) 0.700, Neut % (Auto) 84.7 H, Lymph % (Auto) 7.7 L, [place] % (Auto) 6.5, Eos % (Auto) 0.1, Baso % (Auto) 0.3, Absolute Neuts (auto) 15.9 H, Absolute Lymphs (auto) 1.45, Nucleated RBC % 0, PT 15.5 H, INR 1.2, Sodium 144, Potassium 3.0 L, Chloride 115 H, Carbon Dioxide 17.3 L, Anion Gap 12, BUN 9, Creatinine 0.54 L, Estim Creat Clear Calc 176.53, Est GFR (MDRD) Non-Af 123, BUN/Creatinine Ratio 16.4, Glucose 76, Lactic Acid < 1.0, Calcium 7.6, Total Bilirubin 0.66, AST 22, ALT 22, Alkaline Phosphatase 90, Total Protein 5.4 L, Albumin 3.2 L, Globulin 2.2, Albumin/Globulin Ratio 1.4 Radiography Diagnostic Testing: Radiology Impression Abdomen/Pelvis CT 05/24/25 15:20 IMPRESSION: post operative changes about the ventral abdomen. There is a 15 x 5 x 7 cm fluid collection at the ventral pelvis soft tissues which may reflect a seroma although abscess is not entirely excluded. Heterogenous uterus likely related to recent / although endometritis not entirely excluded. Reading Location: [facility] Chest CTA 05/24/25 15:20 IMPRESSION: No evidence of pulmonary embolism. Reading Location: [address] Constitutional Constitutional: Reports fatigue, fever(s), headache(s) and poor appetite; Denies body ache(s), change in weight or excessive sweating Cardiovascular Cardiovascular: Reports leg edema; Denies abdominal pain, chest pain, diaphoresis or dizziness Respiratory/Chest Respiratory/Chest: Denies chest tightness, cough or dyspnea Gastrointestinal Gastrointestinal: Denies belching, bloating, change in bowel habits, constipation, cramping, diarrhea or hemorrhoids Genitourinary Genitourinary: Denies burning urination or difficulty urinating Musculoskeletal Musculoskeletal: Reports none Integumentary Integumentary: Reports other Details: reports bruising on abdomen and blisters around her incision Psychiatric Psychiatric: Denies anxiety, confusion or depression Hematologic/Lymphatic Hematologic/Lymphatic: Reports systems reviewed and no addt'l complaints, except as documented Physical Exam Const alert, oriented x3 and no apparent distress HEENT normocephalic Eyes PERRL Neck full ROM Lymph Lymphatic: no lymphadenopathy noted Chest inspection of chest normal Breast/Axilla Palpation: other Other Details: bilateral breasts are engorged. no obvious abscesses or lesion. The left nipple is cracked and there is dried blood present. Resp normal respiratory effort Effort and Inspection: able to speak in complete sentences and symmetric chest movement Cardio regular rhythm Cardio Narrative: tachycardic 110 Rate: tachycardic GI GI Narrative: morbidly obese abdomen with 2 areas of ecchymosis measuring approximately 10 cm each. On on right side of pannus and one midline. The incision is clean, dry, intact. There is some overlapping of the incision in the midline measuring 1 cm. There is no oozing or discharge of any kind. The blisters that were reported appear to be secondary to her dressing. Palpation: Negative for tender, guarding or rigid Narrative: some ecchymosis of the mons pubis. normal appearing external genitalia. Back/Spine no CVA tenderness Extremity General Extremity: edema bilateral lower extremity Details: mild Psych mental status grossly normal Appearance: grossly normal Speech: normal speech Assessment & Plan (1) Postoperative fever: (2) Subcutaneous abscess: (3) S/P : (4) Soft tissue abscess: (5) Tachycardia: PLAN: Plan continue plan from yesterday and look forward to recommendations from interventional radiology today If they are unable to drain this area I may need to reopen the space as her hg has dropped another gram since yesterday in the ER. ordering stat EKG due to palpitations, however on tele monitor it appears to be sinus tachycardia considering consulting GS for assistance if opening her up in the OR is the next step Charges/Coding Visit Charges Inpatient E&M: 91061 Subs Hosp L3
[2025-05-25] MEDS: 0.9% Normal Saline (1000mL) 1,000 ML 999 ML IV (07:50)
[2025-05-25] MEDS: Lidocaine 2% (20 ml mdv) 20 ML Vial INFILT (10:12)
--- NOTE | 2025-05-25 11:20 | CASEMGMT ---
Dx: Postoperative Fever LACE: 1 6-Clicks: 24 Medical record reviewed and patient evaluated for identification of discharge planning needs. Based on this review, at this time criteria are not present to indicate a need for discharge planning. Will remain available to assist with discharge planning needs as identified or requested.
[2025-05-25] MEDS: Potassium Chloride Oral Tablet 20 MEQ PO (13:04)
[2025-05-25] MEDS: Iron Sucrose Complex 200 MG in 0.9% Normal Saline (100mL Bag) 100 ML 220 MG IV (13:17)
--- NOTE | 2025-05-25 14:33 | CASEMGMT ---
Social Work SW met w/pt in room in regard to how she is doing, as just had a baby on 05/12. Pt states everything had been going well until this. She states had a hematoma that had to be evacuated, though was glad she did not have to be opened up. SW inquired how pt has been feeling mentally, as pt was seen by SW in [place] after having her baby due to hx of anxiety, depression and PPD. Pt states she has been doing better than she expected. Pt states she has a therapist and was planning to follow up w/her today however ended up in the hospital. Pt states the children are w/FOB's mother, no concerns about the children. Pt has another child at home in addition to the . Pt sates she will be here a couple of days. SW let pt know if she is needing to talk through anything or needs support, SW is here and can come back in to meet w/her. Pt sates understanding. SW remains available for support to pt as needed. ALYSSA Holly
--- NOTE | 2025-05-25 19:18 | CT_ITS ---
EXAM: CT-guided anterior abdominal/pelvic fluid drainage CLINICAL HISTORY: Right/central anterior lower abdominal/pelvic deep subcutaneous fluid collection inpatient approximately 10 days . Lower abdominal/pelvic pain. COMPARISON: CT abdomen and pelvis of 05/24/2025. TECHNIQUE: Following informed consent, and using standard sterile technique, a CT-guided biopsy of the right/central lower abdominal/pelvic deep subcutaneous fluid collection was performed. 2% lidocaine local anesthesia was followed by placement of a 10 cm [address] [place] [address] catheter under [address] guidance. Approximately 146 mL blood appearing fluid was successfully removed. Post imaging showed no complication, and a markedly diminished structure at the site of the aspirated fluid. No complication was encountered, the patient left the department in good condition without significant complaint. CT/Biopsy/Inj or Needle Placement IMPRESSION: Successful CT-guided drainage of the right/central lower abdominal/pelvic fluid collection. Laboratory results pending. Reading Location: [place] [address]
[2025-05-26] VITALS (10 sets, daily range): BP systolic 116–138; BP diastolic 69–89; PULSE 83–133; RESP 16–18; TEMP 36.6–38.8; O2SAT 93–100
[2025-05-26 05:15] LABS: Hematocrit 26.0 % (37-47); Hemoglobin 8.6 g/dL (12.0-15.0); Immature Granulocytes Count 0.080 X10^3/uL (0.0-0.0); Mean Corp Hgb Conc 33.1 g/dL (32-36); Mean Corpuscular Volume 88.7 fL (81-99); Mean Platelet Vol. 8.5 fl (6.2-12.0); NRBC Flagged by Analyzer 0 % (0-5); Platelet Count 324 K/mm3 (150-450); RBC Distribution Width CV 13.8 % (11.6-14.6); RBC Distribution Width SD 45.1 fl (35.1-43.9); Red Blood Count 2.93 M/mm3 (4.2-5.4); White Blood Count 14.2 K/mm3 (4.4-11.0)
[2025-05-26 05:46] LABS: AST(SGOT) 21 U/L (<=31); Alanine Aminotransfer ALT/SGPT 21 U/L (<=34); Albumin, Serum 2.9 g/dL (3.5-5.0); Alkaline Phosphatase 98 U/L (35-104); Anion Gap 11 (5-15); BUN 8 mg/dL (4-19); BUN/Creat Ratio 17.1 RATIO (10-20); Calcium,Total 8.1 mg/dL (7.6-11.0); Carbon Dioxide 17.5 mmol/L (21.0-32.0); Chloride 111 mmol/L (98-108); Estimated Creatinine Clearance 194.54 ml/min (50-250); Globulin 2.4 g/dL (2.2-4.2); Glucose 67 mg/dL (70-99); Potassium 3.2 mmol/L (3.3-5.1)
[2025-05-26] MEDS: Piperacil/Tazobactam 3.375 GM in 0.9% Normal Saline (50mL MB+) 50 ML IV ×3 (06:25→22:28)
--- NOTE | 2025-05-26 08:18 | PN.OBGYN_ITS ---
Subjective Subjective patient is in bed and looks overall well but is tearful today stating she is anxious, misses her family and her at home thinks she is going to . I explained to her that her white count is coming down as is her heart rate. She has not been fibrile for over 24 hours and that the only thing we are really waiting for are the culture results. This made her appear to feel better and I explained that I will check on her multiple times in the day today. Objective Data Objective Data Vital Signs: Vital Signs Temp Pulse Resp BP Pulse Ox O2 Del Method 98.2 F 102 H 18 117/69 99 Room Air 05/26/25 08:13 05/26/25 08:13 05/26/25 08:13 05/26/25 08:13 05/26/25 08:13 05/26/25 08:13 Oxygen Delivery Method Room Air Weight: 258 lb 2.581 oz Body Mass Index (BMI) 47.2 Intake & Output: Intake and Output for Last 24 Hours 05/24/25 05/25/25 05/26/25 23:59 23:59 23:59 Intake Total 2049 3838.33 / 4138.33 650 / 650 Balance 2049 3838.33 / 4138.33 650 / 650 Lab / Micro Data 05/26/25 04:09 05/26/25 04:09 Labs: Laboratory Results - last 24 hr 05/26/25 04:09: WBC 14.2 H, RBC 2.93 L, Hgb 8.6 L, Hct 26.0 L, MCV 88.7, MCH 29.4, MCHC 33.1, RDW Std Deviation 45.1 H, RDW Coeff of Tanner 13.8, Plt Count 324, MPV 8.5, Immature Gran % (Auto) 0.600, Neut % (Auto) 80.2 H, Lymph % (Auto) 10.7 L, [place] % (Auto) 7.0, Eos % (Auto) 1.3, Baso % (Auto) 0.2, Absolute Neuts (auto) 11.4 H, Absolute Lymphs (auto) 1.52, Nucleated RBC % 0, Sodium 139, Potassium 3.2 L, Chloride 111 H, Carbon Dioxide 17.5 L, Anion Gap 11, BUN 8, Creatinine 0.49 L, Estim Creat Clear Calc 194.54, Est GFR (MDRD) Non-Af 126, BUN/Creatinine Ratio 17.1, Glucose 67 L, Calcium 8.1, Total Bilirubin 0.49, AST 21, ALT 21, Alkaline Phosphatase 98, Total Protein 5.3 L, Albumin 2.9 L, Globulin 2.4, Albumin/Globulin Ratio 1.2 Micro: Microbiology 05/25/25 10:25 Interface Orders Gram Stain - Final Radiography Diagnostic Testing: Radiology Impression Biopsy CT 05/25/25 19:18 IMPRESSION: Successful CT-guided drainage of the right/central lower abdominal/pelvic fluid collection. Laboratory results pending. Reading Location: [address] Constitutional Constitutional: Reports fatigue, fever(s), headache(s) and poor appetite; Denies body ache(s), change in weight or excessive sweating Cardiovascular Cardiovascular: Reports leg edema; Denies abdominal pain, chest pain, diaphoresis or dizziness Respiratory/Chest Respiratory/Chest: Denies chest tightness, cough or dyspnea Gastrointestinal Gastrointestinal: Denies belching, bloating, change in bowel habits, constipation, cramping, diarrhea or hemorrhoids Genitourinary Genitourinary: Denies burning urination or difficulty urinating Musculoskeletal Musculoskeletal: Reports none Integumentary Integumentary: Reports other Details: reports bruising on abdomen and blisters around her incision Psychiatric Psychiatric: Denies anxiety, confusion or depression Hematologic/Lymphatic Hematologic/Lymphatic: Reports systems reviewed and no addt'l complaints, except as documented Physical Exam Const alert, oriented x3 and no apparent distress HEENT normocephalic Eyes PERRL Neck full ROM Lymph Lymphatic: no lymphadenopathy noted Chest inspection of chest normal Breast/Axilla Palpation: other Other Details: bilateral breasts are engorged. no obvious abscesses or lesion. The left nipple is cracked and there is dried blood present. Resp normal respiratory effort Effort and Inspection: able to speak in complete sentences and symmetric chest movement Cardio regular rhythm Cardio Narrative: tachycardic 110 Rate: tachycardic GI GI Narrative: morbidly obese abdomen with 2 areas of ecchymosis measuring approximately 10 cm each. On on right side of pannus and one midline. The incision is clean, dry, intact. There is some overlapping of the incision in the midline measuring 1 cm. There is no oozing or discharge of any kind. The blisters that were reported appear to be secondary to her dressing. Palpation: Negative for tender, guarding or rigid Narrative: some ecchymosis of the mons pubis. normal appearing external genitalia. Back/Spine no CVA tenderness Extremity General Extremity: edema bilateral lower extremity Details: mild Psych mental status grossly normal Appearance: grossly normal Speech: normal speech Assessment & Plan (1) Postoperative fever: (2) Subcutaneous abscess: (3) S/P : (4) Soft tissue abscess: (5) Tachycardia: PLAN: Plan patient is status post CT guided drainage of approximately 150cc bloody fluid from the subcutaneous space. Culture on this is pending blood cultures are pending continue zosyn and re-evaluate this afternoon white count is down and fever is gone. may be a candidate for outpatient antibiotic treatment soon. Charges/Coding Multi Select Codes Visit Charges Visit Charges: 67832 Subs Hosp L2
--- NOTE | 2025-05-26 14:38 | CT_ITS ---
PROCEDURE: ABDOMEN/PELVIS WITHOUT CONT N/A REASON FOR EXAM: ABDOMINAL SWELLNG AFTER CT DRAINAGE Recent section. TECHNIQUE: ABDOMEN/PELVIS WITHOUT CONT Noncontrast technique limits evaluation of the abdominal and pelvic viscera. Coronal and Sagittal reconstruction series were provided. One or more dose reduction techniques were used (e.g., Automated exposure control, adjustment of the mA and/or kV according to patient size, use of iterative reconstruction technique). RADIATION DOSE SUMMARY: CTDlvol: 22.71 mGy DLP: 1249.35 mGycm COMPARISON: Prior study dated May 24, 2025. FINDINGS: Lung bases: Minimal bilateral pleural effusions with bibasilar atelectasis. There is evidence of congestion of both breasts with thickening of the skin. Liver: Hepatomegaly. Gallbladder: Surgically absent. Spleen: Normal size. Pancreas: Normal size. No surrounding inflammation. Adrenals: Unremarkable Kidneys: No urolithiasis. No hydronephrosis. Bladder: Unremarkable Reproductive Organs: Enlarged uterus in keeping with the recent gestation. Bowel: Unremarkable gas pattern Appendix: The appendix is not identified. There is no inflammatory process identified in the right lower quadrant to suggest appendicitis. Lymph nodes: No suspicious lymph node enlargement. Vasculature: The abdominal aorta and IVC contours are normal. Noncontrast technique limits evaluation. There is evidence of a 12.4 cm x 3.4 cm fluid collection in the deep subcutaneous tissues overlying the right lower quadrant/pelvis. This has decreased in size as compared to prior study. Bones: Unremarkable CT/Abdomen/Pelvis without Cont IMPRESSION: Essentially stable examination with decreased size of the previously seen fluid collection in the anterior right lower quadrant/pelvic wall. It presently measures 12.4 cm 3.4 cm. Reading Location: [id number]
[2025-05-26] MEDS: 0.9% Normal Saline (500mL Bag) 500 ML 999 ML IV (15:33)
[2025-05-26 16:53] LABS: Hematocrit 29.4 % (37-47); Hemoglobin 9.5 g/dL (12.0-15.0); Immature Granulocytes Count 0.060 X10^3/uL (0.0-0.0); Mean Corp Hgb Conc 32.3 g/dL (32-36); Mean Corpuscular Volume 88.6 fL (81-99); Mean Platelet Vol. 8.5 fl (6.2-12.0); NRBC Flagged by Analyzer 0 % (0-5); Platelet Count 397 K/mm3 (150-450); RBC Distribution Width CV 13.7 % (11.6-14.6); RBC Distribution Width SD 44.6 fl (35.1-43.9); Red Blood Count 3.32 M/mm3 (4.2-5.4); White Blood Count 14.7 K/mm3 (4.4-11.0)
[2025-05-26] MEDS: Potassium Chloride Oral Tablet 20 MEQ PO (18:43)
[2025-05-26] MEDS: Vancomycin HCl 2,000 MG in 0.9% Normal Saline (500mL Bag) 500 ML 250 MG IV (19:58)
[2025-05-26] MEDS: 0.9% Normal Saline (250mL Bag) 250 ML 15 ML IV (19:59)
--- NOTE | 2025-05-26 20:17 | PCM.RX.CS ---
Consult Antibiotic Management Pharmacy has been consulted to manage selected antibiotic: Vancomycin Type of Intervention Type of Consult: New start Suspected Infection Suspected Infection: Skin/Soft tissue Labs Labs: Sodium 139 mmol/L (133-145) 05/26/25 04:09 Potassium 3.2 mmol/L (3.3-5.1) L 05/26/25 04:09 Chloride 111 mmol/L (98-108) H 05/26/25 04:09 Carbon Dioxide 17.5 mmol/L (21.0-32.0) L 05/26/25 04:09 Anion Gap 11 (5-15) 05/26/25 04:09 BUN 8 mg/dL (4-19) 05/26/25 04:09 Creatinine 0.49 mg/dL (0.70-1.20) L 05/26/25 04:09 Est GFR (MDRD) Non-Af 126 (>60) 05/26/25 04:09 BUN/Creatinine Ratio 17.1 RATIO (10-20) 05/26/25 04:09 Glucose 67 mg/dL (70-99) L 05/26/25 04:09 Microbiology Microbiology: Microbiology 05/25/25 10:25 Interface Orders Gram Stain - Final 05/25/25 10:25 Interface Orders Body Fluid Culture - Preliminary Gram negative ryann Goal Trough Goal Trough: 15-20 mcg/mL Pharmacy Plan for Drug Dosing Pharmacy Plan for Drug Dosing: NEW START IV VANCOMYCIN Consulting Physician: Dr. Damico Indication: Cellulitis Goal Trough: 15-20 SrCr: 0.49 CrCl: 194 mL/min Comments: Patient had a loading dose of 2g IV x1 ordered and administered 05/26 @8 Vancomycin Dose: 1500mg IV Q8h to start 05/27/25 @0400 Pending Level: 05/27/25 @1930, prior to 4th total dose of vancomycin per protocol Pharmacy Service will continue to monitor and adjust dosing as required.
[2025-05-27] VITALS (16 sets, daily range): BP systolic 116–133; BP diastolic 72–89; PULSE 73–122; RESP 16–20; TEMP 36.4–37.1; O2SAT 91–100; BMI 47.2
--- NOTE | 2025-05-27 00:38 | PCM.PN.BLA ---
Progress Note late entry note: Nurse called at 1428 to report that the patient has spiked a fever of 101.4 and is tachycardic again. She also thinks her pannus erythema is getting worse possibly. Upon exam the erythema does appear to have spread. The patient is tearful and states that her abdominal skin feels more tight and more painful. A stat CT shows no worsening of the fluid collection in the subcutaneous space but remains to be 12 x 4 cm in size. Physical Exam Const alert, oriented x3 and no apparent distress HEENT normocephalic Eyes PERRL Neck full ROM Lymph Lymphatic: no lymphadenopathy noted Chest inspection of chest normal Breast/Axilla Palpation: other Other Details: bilateral breasts are engorged. no obvious abscesses or lesion. The left nipple is cracked and there is dried blood present. Resp normal respiratory effort Effort and Inspection: able to speak in complete sentences and symmetric chest movement Cardio regular rhythm Cardio Narrative: tachycardic 110 Rate: tachycardic GI GI Narrative: morbidly obese abdomen with 2 areas of ecchymosis measuring approximately 10 cm each. On on right side of pannus and one midline. The incision is clean, dry, intact. There is some overlapping of the incision in the midline measuring 1 cm. There is no oozing or discharge of any kind. The blisters that were reported appear to be secondary to her dressing. Palpation: tender and other Other Details: a line was drawn around the erythematous area to olivia borders ; Negative for guarding or rigid Narrative: some ecchymosis of the mons pubis. normal appearing external genitalia. Back/Spine no CVA tenderness Extremity General Extremity: edema bilateral lower extremity Details: mild Psych mental status grossly normal Appearance: grossly normal Speech: normal speech Assessment & Plan Assessment/Plan (1) Postoperative fever: (2) Subcutaneous abscess: (3) S/P : (4) Soft tissue abscess: (5) Tachycardia: PLAN: Plan patient is status post CT guided drainage of approximately 150cc bloody fluid from the subcutaneous space. Culture on this is pending blood cultures are pending continue zosyn and start vanc for possible cellulitis white count is stable and hg is increased from last check today. Fluid bolus now discussed case with Dr. Schmid and he agrees to keep her on the zosyn and add vanc Consulted General surgery also and talked with Dr. Rich and Dr. Hernandez who agree that she should have the incision re-opened and drained then packed and consult wound vac team for secondary closure. She Agrees to proceed with this plan. Dr. Hernandez will perform the procedure at 7:30 am as the patient just finished a full meal at 6 pm. NPO after 11 pm
[2025-05-27] MEDS: Vancomycin HCl 1,500 MG in 0.9% Normal Saline (500mL Bag) 500 ML 250 MG IV (04:00)
[2025-05-27] MEDS: 0.9% Normal Saline (1000mL) 1,000 ML 15 ML IV (07:04)
[2025-05-27] MEDS: Piperacil/Tazobactam 3.375 GM in 0.9% Normal Saline (50mL MB+) 50 ML IV ×3 (07:04→21:24)
--- NOTE | 2025-05-27 07:24 | PCM.PRE.AN2 ---
ASA Classification* ASA Classification ASA Classification: 3 and E Assessment & Plan Anesthesia* Anesthesia Assessment Anesthesia Assessment: Discussed sedation and/or anesthesia options, risks, benefits, and alternatives with patient/parents/legal guardian/POA. Questions invited. The patient/parents/legal guardian/POA seems to understand and agrees to proceed with anesthesia plan. Reviewed the physical assessment, medical history, allergy history and patient home medications list prior to surgery/procedure/anesthetic and documented any changes. Performed airway and anesthesia risk assessments. Anesthesia Type Anesthesia Type: General (ETT) History Source History Obtained from:: Patient and Chart Anesthesia Focused Assessment* Temperature: 98.5 F Pulse Rate: 115 Blood Pressure: 124/85 Respiratory Rate: 16 Pulse Ox: 100 Oxygen Delivery Method: Room Air Airway Assessment Mouth opens: >3 cm Mallampati Score: III Teeth Condition: Intact Neck Range of motion (ROM): Full ROM Labs Anesthesia Preop lab: CBC WBC 14.7 K/mm3 (4.4-11.0) H 05/26/25 16:20 05/26/25 RBC 3.32 M/mm3 (4.2-5.4) L 05/26/25 16:20 05/26/25 Hgb 9.5 g/dL (12.0-15.0) L 05/26/25 16:20 05/26/25 Hct 29.4 % (37-47) L 05/26/25 16:20 05/26/25 Plt Count 397 K/mm3 (150-450) 05/26/25 16:20 05/26/25 CHEMISTRY Potassium 3.2 mmol/L (3.3-5.1) L 05/26/25 04:09 05/26/25 Sodium 139 mmol/L (133-145) 05/26/25 04:09 05/26/25 BUN 8 mg/dL (4-19) 05/26/25 04:09 05/26/25 Creatinine 0.49 mg/dL (0.70-1.20) L 05/26/25 04:09 05/26/25 Glucose 67 mg/dL (70-99) L 05/26/25 04:09 05/26/25 TSH 1.180 uIU/mL (0.358-3.740) 10/09/24 15:34 10/09/24 COAG PT 15.5 SECONDS (11.7-14.9) H 05/25/25 06:15 05/25/25 Pre-Assessment Diagnosis/Proposed Procedure Planned Operative Procedure(s): I&D abdominal wall abscess Anesthesia History Anesthesia History - driver's license reviewing officer: Anesthesia History - driver's license reviewing officer Hx Hospitalization Any Problems With Anesthesia No 05/26/25 20:15 Cholinesterase deficiency No 05/26/25 20:15 You/Your Family Experience No 05/26/25 20:15 fever (hyperthermia) with Relationship Recent Exposure to Contagious No 05/26/25 20:15 Disease Does patient have nerve No 05/26/25 20:15 stimulator Patient instructed to have No 05/26/25 20:15 device shut off --Does patient have Pacemaker No 05/27/25 06:07 or ICD? When Was Last Pacemaker Check QUESTION #4 FULL TEXT: You/Your Family Experience fever (hyperthermia) with Anesthesia Last Oral Intake Last Oral intake: Last Oral Intake NPO since 23:00 05/27/25 06:07 Meds taken in AM with sips of No 05/27/25 06:07 water? Meds patient instructed to take am of surgery PONV PONV - driver's license reviewing officer: PONV - driver's license reviewing officer Female HX of Motion Sickness HX of N/V After Surgery Non-Smoker Duration of Surgery greater than 60 minutes Number of Risk Factors PONV Score Height & Weight Height & Weight: Anesthesia: Height & Weight Height 5 ft 2 in 05/27/25 06:07 Weight: 117.1 kg 05/27/25 06:07 Body Mass Index (BMI) 47.2 05/27/25 06:07 Respiratory Assessment Respiratory Assessment - driver's license reviewing officer: Respiratory Tract Infection Hx - driver's license reviewing officer Hx Respiratory Tract Infection No 05/26/25 20:15 STOP Sleep Apnea STOP Sleep Apnea - driver's license reviewing officer: STOP Sleep Apnea - driver's license reviewing officer Hx Hypertension No 05/24/25 20:14 Hx Sleep Apnea Yes 05/24/25 20:14 CPAP Yes 05/24/25 20:14 BIPAP No 05/24/25 20:14 Do you snore loudly (louder than talking or can be heard Do you often feel tired/ fatigued/ sleepy during daytime? Has anyone observed you stop breathing during sleep? STOP Results Positive 05/24/25 20:14 QUESTION #5 FULL TEXT : Do you snore loudly (louder than talking or can be heard through closed doors)? 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 Specify any problems Hx of Preganancy in last 3 No 05/24/25 20:14 Months Nurse Filling Out Transfusion TMELLOR 05/24/25 20:14 & Questions: Date: 05/24/25 05/24/25 20:14 Time: 20:14 05/24/25 20:14 Patient unable to answer at this time (ie. confused, unrespo /Reproduction History /Reproductive History - driver's license reviewing officer: /Reproductive Hx- driver's license reviewing officer Hx Now No 05/26/25 20:15 Gestational Age (in weeks): EDC: Hx Hx Para Hx Section SAB Yes 05/26/25 20:15 Active Medications Active Medications: Current Medications Generic Name Dose Route Start Last Admin Trade Name Freq PRN Reason Stop Dose Admin Acetaminophen 1,000 mg 05/26/25 23:06 Acetaminophen 500 Mg Tablet PO Q8H PRN PRN Pain 1-10 or Fever Enoxaparin Sodium 40 mg 05/26/25 22:00 Enoxaparin 40 Mg/0.4 Ml Syringe SC BID MOOK Piperacillin Sod/Tazobactam 50 mls @ 12.5 mls/hr 05/25/25 06:00 05/27/25 07:04 Sod 3.375 gm/ Sodium Chloride IV 12.5 mls/hr Q8 MOOK Administration Sodium Chloride 250 mls @ 15 mls/hr 05/24/25 20:23 05/26/25 22:52 IV 0 mls/hr .[id number] PRN Infusion Saline Flush Vancomycin IV-PHARMACY TO DOSE 500 mls @ 250 mls/hr 05/26/25 18:12 1 each/ Sodium Chloride IV PRN PRN Rx to Dose Protocol Vancomycin HCl 1,500 mg/ 530 mls @ 250 mls/hr 05/27/25 04:00 05/27/25 06:10 Sodium Chloride IV Infused Q8H MOOK Infusion Sodium Chloride 1,000 mls @ 15 mls/hr 05/27/25 06:45 05/27/25 07:04 IV 15 mls/hr .Q48H MOOK Administration Ibuprofen 800 mg 05/24/25 18:46 05/26/25 18:43 Ibuprofen 400 Mg Tablet PO 800 mg Q8H PRN PRN Administration Pain Score 4-10 Oxycodone HCl 5 mg 05/24/25 18:46 Oxycodone 5 Mg Tablet PO Q4H PRN PRN Pain Score 4-10 Sodium Chloride 10 - 40 ml 05/24/25 20:23 0.9% Saline Lock 10 Ml Syringe IV UD PRN SALINE FLUSH Vancomycin Protocol 1 lab 05/27/25 18:30 Vancomycin Trough/Random Due MC 05/27/25 20:30 DAILY MOOK Zolpidem Tartrate 5 mg 05/24/25 18:46 Zolpidem Tartrate 5 Mg Tablet PO QHS PRN PRN SLEEP PFSH Medical History (Updated 05/24/25 @ 19:[address] Edel Bullock, DO) PCOS (polycystic ovarian syndrome) Infertility Depression with anxiety GERD (gastroesophageal reflux disease) Home Medications ?Medication ?Instructions ?Recorded ?Last Taken ?Type escitalopram oxalate 10 mg tablet 10 mg PO DAILY anxiety/depression 07/20/24 05/23/25 Rx (Lexapro) #30 tabs docosahexaenoic acid 200 mg 200 mg PO DAILY #90 caps 07/28/24 05/23/25 Rx capsule ( DHA) famotidine 40 mg tablet (Pepcid) 40 mg PO DAILY indigestion #30 tabs 01/11/25 05/23/25 Rx breast pump #1 ea 01/29/25 Unknown Rx ibuprofen 800 mg tablet 800 mg PO Q8H PRN pain #30 tabs 05/12/25 05/24/25 Rx acetaminophen 500 mg capsule 1,000 mg PO Q6H PRN fever or pain 05/24/25 05/24/25 History Allergy/AdvReac Type Severity Reaction Status Date / Time No Known Allergies Allergy Verified 05/27/25 07:01 Family History Mother Hypertension Grandfather Heart disease Hypertension Diabetes Cancer Macular degeneration Grandmother Macular degeneration Surgical History (Updated 05/24/25 @ 18:[address] Pee Sargent, DO) H/O successful vaginal after , currently H/O section History of surgical procedure S/P cholecystectomy S/P S/P wisdom tooth extraction Social History adopted: No household members: spouse and children housing: house number of children: 1 current occupational status: unemployed current occupation: [employer] current occupational exposures/hazards: No 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) pets and animals: cat(s) history of recent travel: Yes ([place] for IVF) out of state: Yes sexually active: Yes Smoking Status: Former smoker quit date: 09/30/21 alcohol intake: current alcohol intake frequency: holidays/special occasions only details: Not while substance use type: former substance user Date of last use: May 2024 and marijuana diet: vegetarian well-balanced diet: about half the time caffeine: Yes Type: carbonated beverages Number of servings: 1 eating out: 4 or more times/week during the past year weight has: remained stable what type of physical activity do you participate in: none landon/jehovah's witness: None seatbelt use: always do you feel safe at home: Yes additional social history: : [employer] (works from home) Review of Systems (Anesthesia) ROS Narrative System reviewed and no additional complaints, except as documented.
[2025-05-27 07:30] LABS: Hematocrit 24.8 % (37-47); Hemoglobin 7.9 g/dL (12.0-15.0); Immature Granulocytes Count 0.080 X10^3/uL (0.0-0.0); Mean Corp Hgb Conc 31.9 g/dL (32-36); Mean Corpuscular Volume 88.9 fL (81-99); Mean Platelet Vol. 8.7 fl (6.2-12.0); NRBC Flagged by Analyzer 0 % (0-5); Platelet Count 363 K/mm3 (150-450); RBC Distribution Width CV 13.8 % (11.6-14.6); RBC Distribution Width SD 45.1 fl (35.1-43.9); Red Blood Count 2.79 M/mm3 (4.2-5.4); White Blood Count 12.1 K/mm3 (4.4-11.0)
--- NOTE | 2025-05-27 07:30 | CON.PCM.SX_ITS ---
Assessment & Plan Assessment/Plan (1) Subcutaneous abscess: PLAN: Plan The patient is a 34-year-old female who is 2 weeks status post a . She has developed a 15 cm fluid collection/abscess along with fevers and leukocytosis. They are recommending operative drainage of this abscess. We discussed the details of the planned procedure including risks benefits and alternatives. She wishes to proceed. We also discussed the need to keep the wound open and packed at least initially to facilitate wound healing and cleaning of the wound. I suspect eventually she will benefit from a wound VAC and this can be applied in the next few days as the wound becomes rug cleaner hand. Surgery will begin momentarily HPI Consult Data Date of Consult: 05/27/25 HPI Narrative Reason for Consultation: Abdominal wall abscess HPI Narrative: BARBY CABALLERO, is a 34 F who is status post a about 2 weeks ago. She presented to the emergency department with fevers. She underwent CT scan of the abdomen pelvis which revealed about a 15 cm fluid collection/abscess involving the subcutaneous tissues of the lower right abdomen near the site of the recent incision. She was subsidy admitted and placed on antibiotics. Radiology attempted CT-guided aspiration however only about 100 cc of fluid was able to be removed. CT scan was repeated during this hospitalization and showed that the fluid collection was smaller although still quite large. Infectious disease was also consulted and recommended drainage. I was contacted by the patient's LITHOGRAPHIC PRINTING MACHINIST physician in order to set up a surgery to drain this fluid collection. We discussed the details of the planned procedure with the patient and she wishes to proceed. [facility] Medical History (Updated 05/24/25 @ 19:[address] Edel Bullock, ) PCOS (polycystic ovarian syndrome) Infertility Depression with anxiety GERD (gastroesophageal reflux disease) Home Medications ?Medication ?Instructions ?Recorded ?Last Taken ?Type escitalopram oxalate 10 mg tablet 10 mg PO DAILY anxie ty/depression 07/20/24 05/23/25 Rx (Lexapro) #30 tabs docosahexaenoic acid 200 mg 200 mg PO DAILY #90 caps 07/28/24 05/23/25 Rx capsule ( DHA) famotidine 40 mg tablet (Pepcid) 40 mg PO DAILY indige stion #30 tabs 01/11/25 05/23/25 Rx breast pump #1 ea 01/29/25 Unknown Rx ibuprofen 800 mg tablet 800 mg PO Q8H PRN pain #30 t abs 05/12/25 05/24/25 Rx acetaminophen 500 mg capsule 1,000 mg PO Q6H PRN fever or pain 05/24/25 05/24/25 History Allergy/AdvReac Type Severity Reaction Status Date / Time No Known Allergies Allergy Verified 05/27/25 07:01 Family History Mother Hypertension Grandfather Heart disease Hypertension Diabetes Cancer Macular degeneration Grandmother Macular degeneration Surgical History (Updated 05/24/25 @ 18:[address] Pee Sargent, DO) H/O successful vaginal after , currently H/O section History of surgical procedure S/P cholecystectomy S/P S/P wisdom tooth extraction Social History adopted: No household members: spouse and children housing: house number of children: 1 current occupational status: unemployed current occupation: [employer] current occupational exposures/hazards: No 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) pets and animals: cat(s) history of recent travel: Yes ([place] for IVF) out of state: Yes sexually active: Yes Smoking Status: Former smoker quit date: 09/30/21 alcohol intake: current alcohol intake frequency: holidays/special occasions only details: Not while substance use type: former substance user Date of last use: May 2024 and marijuana diet: vegetarian well-balanced diet: about half the time caffeine: Yes Type: carbonated beverages Number of servings: 1 eating out: 4 or more times/week during the past year weight has: remained stable what type of physical activity do you participate in: none landon/presybeterian: None seatbelt use: always do you feel safe at home: Yes additional social history: : [employer] (works from home) Physical Exam Narrative She is alert and oriented x 3. She is in no acute distress. Abdomen is soft obese and nondistended. She does have ecchymosis involving the lower abdomen. Medical Records Data Attestation: I reviewed the patient's medical records Lab / Micro Data Attestation: I reviewed the patient's lab results. 05/27/25 05:55 05/26/25 04:09 Labs: Laboratory Results - last 24 hr 05/26/25 16:06: Lactic Acid 1.3 05/26/25 16:20: WBC 14.7 H, RBC 3.32 L, Hgb 9.5 L, Hct 29.4 L, MCV 88.6, MCH 28.6, MCHC 32.3, RDW Std Deviation 44.6 H, RDW Coeff of Tanner 13.7, Plt Count 397, MPV 8.5, Immature Gran % (Auto) 0.400, Neut % (Auto) 84.6 H, Lymph % (Auto) 7.9 L, Hickman % (Auto) 6.1, Eos % (Auto) 0.8, Baso % (Auto) 0.2, Absolute Neuts (auto) 12.4 H, Absolute Lymphs (auto) 1.16, Nucleated RBC % 0 05/27/25 05:55: WBC 12.1 H, RBC 2.79 L, Hgb 7.9 L, Hct 24.8 L, MCV 88.9, MCH 28.3, MCHC 31.9 L, RDW Std Deviation 45.1 H, RDW Coeff of Tanner 13.8, Plt Count 363, MPV 8.7, Immature Gran % (Auto) 0.700, Neut % (Auto) 80.3 H, Lymph % (Auto) 10.3 L, Hickman % (Auto) 6.9, Eos % (Auto) 1.6, Baso % (Auto) 0.2, Absolute Neuts (auto) 9.7 H, Absolute Lymphs (auto) 1.25, Nucleated RBC % 0 Micro: Microbiology 05/24/25 19:45 Blood Culture (Wb) - Anticubital Right Blood Culture - Preliminary No growth in 48 hours. 05/24/25 19:30 Blood Culture (Wb) - Left Hand Blood Culture - Preliminary No growth in 48 hours. 05/25/25 10:25 Interface Orders Gram Stain - Final 05/25/25 10:25 Interface Orders Body Fluid Culture - Preliminary Gram negative ryann Imaging Radiology Impression Abdomen/Pelvis CT 05/26/25 14:38 IMPRESSION: Essentially stable examination with decreased size of the previously seen fluid collection in the anterior right lower quadrant/pelvic wall. It presently measures 12.4 cm 3.4 cm. Reading Location: [id number] Charges/Coding Visit Charges Inpatient E&M: 73747 Init Hosp L3
[2025-05-27] MEDS: Midazolam 2 MG/2 ML Syringe IV (07:39)
[2025-05-27] MEDS: Lactated Ringers 1,000 ML 1000 ML IV (07:39)
[2025-05-27] MEDS: Lidocaine 1% (5 ml sdv) 5 ML Vial IV (07:46)
[2025-05-27] MEDS: fentaNYL 100 MCG/2 ML Ampul IV (07:46)
[2025-05-27] MEDS: Bupiv/Epi 0.25% 30 ML Vial (08:02)
[2025-05-27 08:09] LABS: Anion Gap 12 (5-15); BUN 7 mg/dL (4-19); BUN/Creat Ratio 9.3 RATIO (10-20); Calcium,Total 8.2 mg/dL (7.6-11.0); Carbon Dioxide 18.5 mmol/L (21.0-32.0); Chloride 113 mmol/L (98-108); Estimated Creatinine Clearance 122.21 ml/min (50-250); Glucose 70 mg/dL (70-99); Potassium 3.3 mmol/L (3.3-5.1)
--- NOTE | 2025-05-27 08:36 | PCM.POST.ANE ---
Anesthesia: Postop Eval I Current Vital Signs Temperature: 98.8 F Pulse Rate: 121 Blood Pressure: 116/78 Respiratory Rate: 20 Pulse Ox: 96 Oxygen Delivery Method: Nasal Cannula Oxygen Flow Rate (L/min): 4 Assessment Airway patent: Yes Spontaneous unlabored respirations: Yes Mental status: Awake and Calm nausea: No Vomiting: No Anesthesia Complication: No Fluid Hydration Crystalloid volume administer (ml): 700 Total IV fluid infused: 700 Progress Note Anesthesia document: Postop Eval 1 completed: Yes
--- NOTE | 2025-05-27 08:37 | PCM.OPRPT ---
Procedures Integumentary 10xxx: 40874 Complex drainage wound Operative Report (Standard) Operative Information Date of Procedure: 05/27/25 Pre-Operative Diagnosis: Abdominal wall abscess Post-Operative Diagnosis: Same Surgery/Procedure Performed: Incision and drainage of abdominal wall abscess welder first class: Yes Sporting Goods Sales Associate: Alexandra Huston Tasks completed by surgical first assistant: Retracting Additional pest controller assistant?: No Type of Anesthesia: General and Local RN Documented Start/Stop Times: Operation Date: 05/27/25 08:00 Case Time Into Pre-Op 05/27/25 06:45 Out of Pre-Op 05/27/25 07:33 Anesthesia Start 05/27/25 07:39 Into Room 05/27/25 07:39 Procedure Start 05/27/25 08:03 Procedure End 05/27/25 08:20 Anesthesia End 05/27/25 08:30 Out of Room 05/27/25 08:30 Into Recovery 05/27/25 08:31 Procedure Start Time: 08:03 Procedure Stop Time: 08:20 Select all DRAINS/GRAFTS/IMPLANTS that apply: None Estimated Blood Loss: 10 ml Specimen collected: Yes Description of specimen(s) removed: Wound cultures performed Description of surgery: The patient is a 34-year-old female who underwent a about 2 weeks ago. When she returned home over the past week or so she developed abdominal pain and fever. She was seen and evaluated by the emergency department staff and a CT scan showed a large 15 cm abscess involving the right lower quadrant subcutaneous tissues just deep to the incision from the . General surgery consult was obtained to drain the abscess. We discussed the details of the planned procedure including the risks benefits and alternatives. She wished to proceed Patient was brought to the operative room today following informed consent. Antibiotics were already being given and a timeout was performed. She was placed supine on the operative table with arms outstretched and arm boards. General endotracheal anesthesia was induced. The abdomen was then prepped and draped in the usual sterile manner. Soft tissue retraction straps were utilized to retract the pannus to improve exposure to the surgical site. The right two thirds of the incision site was injected with local anesthetic. Once adequately anesthetized, a #10 blade was then used to make the skin incision through the previous incision. Bovie electrocautery was then used to dissect down through the subcutaneous tissues. A large pocket of purulent material was quickly encountered. Wound cultures were promptly obtained. The entire length of the abscess was opened with the aid of the Bovie electrocautery. I did need to extend the incision more to the left to make sure that the full extent of the abscess cavity was unroofed. The level of dissection involved skin and subcutaneous tissues. Old hematoma and purulent drainage was suctioned out. The abdominal wall fascia was intact. There is no evidence to suggest necrotizing fasciitis. Next, using a pulse lavage device, a total of 4 L of saline was used to lavage the wound. The wound actually cleaned up quite nicely. Next Bovie electrocautery was then used to ensure hemostasis especially along the skin edges and the deep recesses of the wound. Hemostasis was excellent. The wound was then irrigated several times with Irrisept. Lastly, the wound was packed with Betadine moistened Kerlix. ABD dressing was then applied along with tape. An abdominal binder was also placed. The patient was then awakened from anesthesia and taken to recovery in good condition Surgical Findings: Large abdominal wall abscess/infected hematoma Complications Complications: No Admit VTE Documentation VTE Present on Admission: No VTE Mechan Device Prophylaxis: SCD's VTE Pharm Prophylaxis ordered?: Yes
[2025-05-27 09:04] LABS: Prothrombin Time (Protime)PT. 14.3 SECONDS (11.7-14.9)
[2025-05-27 09:05] LABS: Partial Thromboplast Time 35.9 Seconds (24.1-36.2)
--- NOTE | 2025-05-27 10:02 | CON.PCM.ID_ITS ---
Assessment & Plan Assessment/Plan (1) Subcutaneous abscess: PLAN: S/p 05/12/25. Presented with SIRS. Now on vanc/zosyn. Aspiration cx now with morganella. Now s/p OR this AM 05/27/[address] Hernandez for I&D of abscess. Will cont zosyn for now, will stop vanc now that aspiration culture is finalized. Temps improved, wbc better. Should continue to improve now that we have good source control. Will follow, thank you, d/w Dr. Bullock last evening. HPI Consult Data Date of Consult: 05/27/25 HPI Narrative Reason for Consultation: fever HPI Narrative: BARBY CABALLERO, is a 34 F who had 05/12/25. Baby is doing well. On 05/24, started to have fever at home. Has been pumping. No cough or SOB, no dysuria. Mild abd soreness. Came to ED, admitted on zosyn. CT showed fluid collection. Aspiration done. Still with fever and tachycardia, so added vanc last night. This AM, taken to OR for I&D of abscess in lower abd wall. Feeling ok this AM, pain controlled. Full ROS performed and neg except as noted above. [facility] Medical History PCOS (polycystic ovarian syndrome) Infertility Depression with anxiety GERD (gastroesophageal reflux disease) Home Medications ?Medication ?Instructions ?Recorded ?Last Taken ?Type escitalopram oxalate 10 mg tablet 10 mg PO DAILY anxie ty/depression 07/20/24 05/23/25 Rx (Lexapro) #30 tabs docosahexaenoic acid 200 mg 200 mg PO DAILY #90 caps 07/28/24 05/23/25 Rx capsule ( DHA) famotidine 40 mg tablet (Pepcid) 40 mg PO DAILY indige stion #30 tabs 01/11/25 05/23/25 Rx breast pump #1 ea 01/29/25 Unknown Rx ibuprofen 800 mg tablet 800 mg PO Q8H PRN pain #30 t abs 05/12/25 05/24/25 Rx acetaminophen 500 mg capsule 1,000 mg PO Q6H PRN fever or pain 05/24/25 05/24/25 History Allergy/AdvReac Type Severity Reaction Status Date / Time No Known Allergies Allergy Verified 05/27/25 07:01 Family History Mother Hypertension Grandfather Heart disease Hypertension Diabetes Cancer Macular degeneration Grandmother Macular degeneration Surgical History (Updated 05/24/25 @ 18:[address] Pee Sargent, DO) H/O successful vaginal after , currently H/O section History of surgical procedure S/P cholecystectomy S/P S/P wisdom tooth extraction Social History adopted: No household members: spouse and children housing: house number of children: 1 current occupational status: unemployed current occupation: [employer] current occupational exposures/hazards: No 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) pets and animals: cat(s) history of recent travel: Yes ([place] for IVF) out of state: Yes sexually active: Yes Smoking Status: Former smoker quit date: 09/30/21 alcohol intake: current alcohol intake frequency: holidays/special occasions only details: Not while substance use type: former substance user Date of last use: May 2024 and marijuana diet: vegetarian well-balanced diet: about half the time caffeine: Yes Type: carbonated beverages Number of servings: 1 eating out: 4 or more times/week during the past year weight has: remained stable what type of physical activity do you participate in: none landon/shinto: None seatbelt use: always do you feel safe at home: Yes additional social history: : [employer] (works from home) Physical Exam Const alert, oriented x3 and no apparent distress General Appearance: cooperative HEENT normocephalic and head/scalp atraumatic Eyes PERRL and EOMs intact bilaterally Neck supple and No nodes Resp normal air movement and clear to auscultation bilaterally Cardio regular rate and regular rhythm GI soft to palpation, non-tender and non-distended Extremity General Extremity: Negative for edema Skin Skin Narrative: abd wrapped s/p OR Neuro CN's II-XII intact bilaterally Lab / Micro Data Attestation: I reviewed the patient's lab results. 05/27/25 05:55 05/27/25 05:55 Labs: Laboratory Results - last 24 hr 05/26/25 16:06: Lactic Acid 1.3 05/26/25 16:20: WBC 14.7 H, RBC 3.32 L, Hgb 9.5 L, Hct 29.4 L, MCV 88.6, MCH 28.6, MCHC 32.3, RDW Std Deviation 44.6 H, RDW Coeff of Tanner 13.7, Plt Count 397, MPV 8.5, Immature Gran % (Auto) 0.400, Neut % (Auto) 84.6 H, Lymph % (Auto) 7.9 L, [place] % (Auto) 6.1, Eos % (Auto) 0.8, Baso % (Auto) 0.2, Absolute Neuts (auto) 12.4 H, Absolute Lymphs (auto) 1.16, Nucleated RBC % 0 05/27/25 05:55: WBC 12.1 H, RBC 2.79 L, Hgb 7.9 L, Hct 24.8 L, MCV 88.9, MCH 28.3, MCHC 31.9 L, RDW Std Deviation 45.1 H, RDW Coeff of Tanner 13.8, Plt Count 363, MPV 8.7, Immature Gran % (Auto) 0.700, Neut % (Auto) 80.3 H, Lymph % (Auto) 10.3 L, [place] % (Auto) 6.9, Eos % (Auto) 1.6, Baso % (Auto) 0.2, Absolute Neuts (auto) 9.7 H, Absolute Lymphs (auto) 1.25, Nucleated RBC % 0, PT 14.3, INR 1.1, APTT 35.9, Sodium 144, Potassium 3.3, Chloride 113 H, Carbon Dioxide 18.5 L, Anion Gap 12, BUN 7, Creatinine 0.78, Estim Creat Clear Calc 122.21, Est GFR (MDRD) Non-Af 101, BUN/Creatinine Ratio 9.3 L, Glucose 70, Calcium 8.2 Micro: Microbiology 05/25/25 10:25 Interface Orders Gram Stain - Final 05/25/25 10:25 Interface Orders Body Fluid Culture - Final Morganella morganii sp morgani 05/24/25 19:45 Blood Culture (Wb) - Anticubital Right Blood Culture - Preliminary No growth in 48 hours. 05/24/25 19:30 Blood Culture (Wb) - Left Hand Blood Culture - Preliminary No growth in 48 hours. Imaging Radiology Impression Abdomen/Pelvis CT 05/26/25 14:38 IMPRESSION: Essentially stable examination with decreased size of the previously seen fluid collection in the anterior right lower quadrant/pelvic wall. It presently measures 12.4 cm 3.4 cm. Reading Location: [id number]
--- NOTE | 2025-05-27 11:55 | NURSING ---
1130- This IBCLC requested to come to bedside to discuss /pumping after surgery and medication safety with her breastmilk. IBCLC assessed patient's MAR, medications fall under L-catergories as follows (Pak's Medications & Mother's Milk [id number]): Motrin L1 Zosyn L2 Lovenox L2 Ambien L3 presumed compatible Morphine L3 presumed compatible, TMax 0.5-1 hr, encouraged pt to pump right before receiving or waiting 2 hours after administration to pump so TMax is past Oxyir L3 presumed compatible Tylenol L1 compatible Decadron L3 presumed compatible, may suppress slightly Diprivan L2 probably compatible Sublimaze L2 probably compatible Vancomycin L1 compatible Versed L2 probably compatible Xylocaine L2 probably compatible Zofran L2 probably compatible Sensorcaine L2 probably compatible *Education given that milk should be safe to give to infant, but due to medications, if pt. desires she can olivia this milk as bath/lotion milk. Shared that Risk can always be consulted if pt. does have specific concerns. No questions at this time. Pt. has been pumping 8-9oz per pump session, so education given that stress from surgery may cause a slight decrease in supply, but with continued pumping and frequent stimulation, supply should be able to recover if a small dip is noted. Encouraged pt. to reach out to as needed. Encouragment and support given.
--- NOTE | 2025-05-27 13:49 | POSTOPAN2_ITS ---
Anesthesia Postop Eval I Sum Postop Eval Completion status Anesthesia document: Postop Eval 1 completed: Yes Anesthesia Postop Eval I Summary Anesthesia Postop Eval I Summary: Anesthesia Postop Eval I: Assessment Summary Airway patent Yes 05/27/25 08:37 [email or web address] Spontaneous unlabored Yes 05/27/25 08:37 [email or web address] [email or web address] respirations Mental status Awake,Calm 05/27/25 08:37 [email or web address] nausea No 05/27/25 08:37 [email or web address] [email or web address] Vomiting No 05/27/25 08:37 [email or web address] Anesthesia Postop Eval I: Fluid Summary Crystalloid volume administer 700 05/27/25 08:37 [email or web address] [email or web address] (ml) Colloids volume administered ( ml) Blood Product volume administered (ml) Total IV fluid infused 700 05/27/25 08:37 [email or web address] [email or web address] Anesthesia Postop Eval I: Summary Notes Anesthesia Complication No 05/27/25 08:37 [email or web address] [email or web address] Anesthesia Complication Comment: Post-operative progress note Anesthesia: Postop Eval II Evaluation Mental status: Awake and Calm Pain Level: 0 nausea: No Vomiting: No Complications Anesthesia Complication: No
--- NOTE | 2025-05-27 13:49 | PCM.POSTANE2 ---
Anesthesia Postop Eval I Sum Postop Eval Completion status Anesthesia document: Postop Eval 1 completed: Yes Anesthesia Postop Eval I Summary Anesthesia Postop Eval I Summary: Anesthesia Postop Eval I: Assessment Summary Airway patent Yes 05/27/25 08:37 REGIONAL EXTENSION SERVICE [email or web address] Spontaneous unlabored Yes 05/27/25 08:37 REGIONAL EXTENSION SERVICE SPECIALIST.[email or web address] respirations Mental status Awake,Calm 05/27/25 08:37 REGIONAL EXTENSION SERVICE [email or web address] nausea No 05/27/25 08:37 REGIONAL EXTENSION SERVICE [email or web address] Vomiting No 05/27/25 08:37 REGIONAL EXTENSION SERVICE [email or web address] Anesthesia Postop Eval I: Fluid Summary Crystalloid volume administer 700 05/27/25 08:37 REGIONAL EXTENSION SERVICE SPECIALIST.[email or web address] (ml) Colloids volume administered ( ml) Blood Product volume administered (ml) Total IV fluid infused 700 05/27/25 08:37 REGIONAL EXTENSION SERVICE [email or web address].[email or web address] Anesthesia Postop Eval I: Summary Notes Anesthesia Complication No 05/27/25 08:37 REGIONAL EXTENSION SERVICE [email or web address].[email or web address] Anesthesia Complication Comment: Post-operative progress note Anesthesia: Postop Eval II Evaluation Mental status: Awake and Calm Pain Level: 0 nausea: No Vomiting: No Complications Anesthesia Complication: No
--- NOTE | 2025-05-27 15:02 | CASEMGMT ---
Engineering Project Designer RITA met with pt to offer support. Pt parents with pt and pt states her and his parents are with her 4 year old son and 2 week old baby. Pt denies concerns with coping at this time. SW remains available for support as needed. Dmitry Canchola, SALVAGE WORKER
--- NOTE | 2025-05-27 15:18 | PN.OBGYN_ITS ---
Subjective Subjective Patient feeling tired but comfortable overall, minimal vaginal bleeding status post wound debridement by general surgery. Planning on wound VAC tomorrow. Able to ambulate with assistance to bathroom. Tolerating p.o. No chest pain or shortness of breath. Objective Data Objective Data Vital Signs: Vital Signs Temp Pulse Resp BP Pulse Ox O2 Del Method O2 Flow Rate 97.6 F L 95 18 127/77 H 96 Room Air 2 05/27/25 13:07 05/27/25 13:07 05/27/25 13:07 05/27/25 13:07 05/27/25 13:07 05/27/25 13:07 05/27/25 11:07 Oxygen Flow Rate (L/min) 2 Oxygen Delivery Method Room Air Weight: 258 lb 2.581 oz Body Mass Index (BMI) 47.2 Intake & Output: Intake and Output for Last 24 Hours 05/25/25 05/26/25 05/27/25 23:59 23:59 23:59 Intake Total 3838.33 / 4138.33 2793.25 / 2793.25 712.00 / 712.00 Output Total Balance 3838.33 / 4138.33 2793.25 / 2793.25 702.00 / 702.00 Lab / Micro Data 05/27/25 05:55 05/27/25 05:55 Labs: Laboratory Results - last 24 hr 05/26/25 16:06: Lactic Acid 1.3 05/26/25 16:20: WBC 14.7 H, RBC 3.32 L, Hgb 9.5 L, Hct 29.4 L, MCV 88.6, MCH 28.6, MCHC 32.3, RDW Std Deviation 44.6 H, RDW Coeff of Tanner 13.7, Plt Count 397, MPV 8.5, Immature Gran % (Auto) 0.400, Neut % (Auto) 84.6 H, Lymph % (Auto) 7.9 L, [place] % (Auto) 6.1, Eos % (Auto) 0.8, Baso % (Auto) 0.2, Absolute Neuts (auto) 12.4 H, Absolute Lymphs (auto) 1.16, Nucleated RBC % 0 05/27/25 05:55: WBC 12.1 H, RBC 2.79 L, Hgb 7.9 L, Hct 24.8 L, MCV 88.9, MCH 28.3, MCHC 31.9 L, RDW Std Deviation 45.1 H, RDW Coeff of Tanner 13.8, Plt Count 363, MPV 8.7, Immature Gran % (Auto) 0.700, Neut % (Auto) 80.3 H, Lymph % (Auto) 10.3 L, [place] % (Auto) 6.9, Eos % (Auto) 1.6, Baso % (Auto) 0.2, Absolute Neuts (auto) 9.7 H, Absolute Lymphs (auto) 1.25, Nucleated RBC % 0, PT 14.3, INR 1.1, APTT 35.9, Sodium 144, Potassium 3.3, Chloride 113 H, Carbon Dioxide 18.5 L, Anion Gap 12, BUN 7, Creatinine 0.78, Estim Creat Clear Calc 122.21, Est GFR (MDRD) Non-Af 101, BUN/Creatinine Ratio 9.3 L, Glucose 70, Calcium 8.2 Micro: Microbiology 05/25/25 10:25 Interface Orders Gram Stain - Final 05/25/25 10:25 Interface Orders Body Fluid Culture - Final Morganella morganii sp morgani 05/25/25 10:25 Interface Orders Anaerobic Culture - Preliminary Checking for anaerobes, further studies to follow. 05/24/25 19:45 Blood Culture (Wb) - Anticubital Right Blood Culture - Preliminary No growth in 48 hours. 05/24/25 19:30 Blood Culture (Wb) - Left Hand Blood Culture - Preliminary No growth in 48 hours. Radiography Diagnostic Testing: Radiology Impression Abdomen/Pelvis CT 05/26/25 14:38 IMPRESSION: Essentially stable examination with decreased size of the previously seen fluid collection in the anterior right lower quadrant/pelvic wall. It presently measures 12.4 cm 3.4 cm. Reading Location: [id number] Physical Exam Const alert, oriented x3 and no apparent distress GI GI Narrative: Bandage intact no saturation Assessment & Plan (1) Subcutaneous abscess: (2) Postoperative fever: (3) Tachycardia: (4) S/P : (5) Soft tissue abscess: PLAN: Plan Appreciate wound evacuation by general surgery, consult for wound VAC tomorrow. Appreciate ID consult. Continue SCDs.
--- NOTE | 2025-05-27 15:32 | CASEMGMT ---
Addendum entered by Jaime Hernandez 05/28/25 10:03: ID states to this caption writer that the pt will DC on PO ATBs Original Note: KIM NEGRON Assessment and Readmission Chart Review Index (WP): 05/12/25-05/15/25. Dx: Delivered Current (MS3) : 05/24/25. Dx: Soft tissue abscess s/p From the index admission, the pt discharged home with her family after having her baby. The pt re-presents to [facility] with a fever up to 102. The pt was admitted to [facility], and blood cultures were sent. See H&P and CREATIVE ENGAGEMENT DIRECTOR progress notes. Pt had an I&D of abscess completed 05/27/25. See SW and nursing notes. Per chart review, the pt may need a wound vac. Face to Face with patient for initial transition planning/care coordination assessment. KIM NEGRON introduced self and role at [facility], pt voices understanding. Pt is A&Ox4 and is resting comfortably in bed and is calm. Pt's parents are at the bedside. Care providers, pharmacy, and demographics verified. Admitting dx: Soft Tissue abscess s/p LACE Strata: 2 PCP: Lakesha Eisenberg Specialists: [facility] Preferred [facility]acy: [facility] Insurance: PIPO Prescription Benefit: Yes LNOK: Douglas Cortes (H), Dyllan (Mother), Simone (Father) Living Arrangements: Pt lives with her and 2 children (Ages 4 and 2 weeks) in a ranch style home with 2 steps to enter ADLs/IADLs: Indep. 6-Clicks: 24 Transportation: self, , parents DME: CPAP @ HS with no additional oxygen. Denies further DME uses or needs at this time HHC/SNF: Denies hx of Pt?s goal: Home Plan: TBD. Anticipate home with C SN to assist with wound care. Follow ID, wound RN, and surgery consults. The pt states that her has Shaw Muscular Dystrophy and is not medically inclined and that he will not be a reliable resource to assist with wound care. Pt states that she does not prefer to come to the [facility] weekly due to the new baby. Pt states that she prefers help at home for her wound care needs. Pt declines wanting to review a list of local in-network HHC agencies and states that she prefers [facility]. TC to [facility] and referral made for SN. [facility] reports that they will look into the referral and try to give a response tomorrow. CM to follow. Pt declines further questions, concerns, or needs at this time. Scotty Hernandez RN CM
[2025-05-28] VITALS (7 sets, daily range): BP systolic 121–140; BP diastolic 75–92; PULSE 66–99; RESP 14–18; TEMP 36.4–36.7; O2SAT 97–100
[2025-05-28] MEDS: Piperacil/Tazobactam 3.375 GM in 0.9% Normal Saline (50mL MB+) 50 ML IV ×2 (05:23→14:48)
[2025-05-28 06:24] LABS: Hematocrit 24.1 % (37-47); Hemoglobin 7.9 g/dL (12.0-15.0); Immature Granulocytes Count 0.130 X10^3/uL (0.0-0.0); Mean Corp Hgb Conc 32.8 g/dL (32-36); Mean Corpuscular Volume 89.3 fL (81-99); Mean Platelet Vol. 8.8 fl (6.2-12.0); NRBC Flagged by Analyzer 0 % (0-5); Platelet Count 331 K/mm3 (150-450); RBC Distribution Width CV 14.1 % (11.6-14.6); RBC Distribution Width SD 45.9 fl (35.1-43.9); Red Blood Count 2.70 M/mm3 (4.2-5.4); White Blood Count 11.5 K/mm3 (4.4-11.0)
[2025-05-28 06:54] LABS: Anion Gap 14 (5-15); BUN 10 mg/dL (4-19); BUN/Creat Ratio 10.0 RATIO (10-20); Calcium,Total 8.4 mg/dL (7.6-11.0); Carbon Dioxide 17.8 mmol/L (21.0-32.0); Chloride 109 mmol/L (98-108); Estimated Creatinine Clearance 93.45 ml/min (50-250); Glucose 89 mg/dL (70-99); Potassium 3.3 mmol/L (3.3-5.1)
--- NOTE | 2025-05-28 07:51 | PN.OBGYN_ITS ---
Subjective Subjective patient is sitting up in bed and states that she feels much better. The wound team has not been by yet. we discussed that her wound culture grew out M organella morganii and her blood culture is growing coag neg staph. Objective Data Objective Data Vital Signs: Vital Signs Temp Pulse Resp BP Pulse Ox O2 Del Method O2 Flow Rate 97.6 F L 66 18 125/75 H 99 Room Air 2 05/28/25 05:25 05/28/25 05:05/28/25 05:05/28/25 05:05/28/25 05:05/28/25 05:05/27/25 11:07 Oxygen Flow Rate (L/min) 2 Oxygen Delivery Method Room Air Weight: 258 lb 2.581 oz Body Mass Index (BMI) 47.2 Intake & Output: Intake and Output for Last 24 Hours 05/26/25 05/27/25 05/28/25 23:59 23:59 23:59 Intake Total 2793.25 / 2793.25 762.00 / 1062.00 769 / 769 Output Total Balance 2793.25 / 2793.25 752.00 / 1052.00 769 / 769 Lab / Micro Data 05/28/25 05:30 05/28/25 05:30 Labs: Laboratory Results - last 24 hr 05/27/25 05:55: PT 14.3, INR 1.1, APTT 35.9, Sodium 144, Potassium 3.3, Chloride 113 H, Carbon Dioxide 18.5 L, Anion Gap 12, BUN 7, Creatinine 0.78, Estim Creat Clear Calc 122.21, Est GFR (MDRD) Non-Af 101, BUN/Creatinine Ratio 9.3 L, Glucose 70, Calcium 8.2 05/28/25 05:30: WBC 11.5 H, RBC 2.70 L, Hgb 7.9 L, Hct 24.1 L, MCV 89.3, MCH 29.3, MCHC 32.8, RDW Std Deviation 45.9 H, RDW Coeff of Tanner 14.1, Plt Count 331, MPV 8.8, Immature Gran % (Auto) 1.100 H, Neut % (Auto) 77.6 H, Lymph % (Auto) 12.9 L, [place] % (Auto) 7.9, Eos % (Auto) 0.4, Baso % (Auto) 0.1, Absolute Neuts (auto) 9.0 H, Absolute Lymphs (auto) 1.49, Nucleated RBC % 0, Sodium 141, Potassium 3.3, Chloride 109 H, Carbon Dioxide 17.8 L, Anion Gap 14, BUN 10, Creatinine 1.02, Estim Creat Clear Calc 93.45, Est GFR (MDRD) Non-Af 74, BUN/Creatinine Ratio 10.0, Glucose 89, Calcium 8.4 Micro: Microbiology 05/26/25 16:20 Blood Culture (Wb) - Left Wrist Bacteria Detection (PCR) - Final Coag Negative Staph 05/26/25 16:20 Blood Culture (Wb) - Left Wrist Blood Culture - Preliminary 05/25/25 10:25 Interface Orders Gram Stain - Final 05/25/25 10:25 Interface Orders Body Fluid Culture - Final Morganella morganii sp morgani 05/25/25 10:25 Interface Orders Anaerobic Culture - Preliminary Checking for anaerobes, further studies to follow. 05/24/25 19:45 Blood Culture (Wb) - Anticubital Right Blood Culture - Preliminary No growth in 48 hours. 05/24/25 19:30 Blood Culture (Wb) - Left Hand Blood Culture - Preliminary No growth in 48 hours. ROS Constitutional Constitutional: Reports fatigue; Denies body ache(s), chills, difficulty sleeping, excessive sweating, fever(s), headache(s) or poor appetite Cardiovascular Cardiovascular: Denies diaphoresis, dizziness or leg edema Respiratory/Chest Respiratory/Chest: Denies change in mental status or cough Gastrointestinal Gastrointestinal: Denies anorexia, constipation, cramping or diarrhea Musculoskeletal Musculoskeletal: Denies difficulty walking or extremity pain Neurologic Neurologic: Denies dizziness Psychiatric Psychiatric: Reports anxiety Physical Exam Const alert, oriented x3 and no apparent distress Eyes EOMs intact bilaterally Neck full ROM Chest Chest: symmetrical chest wall rise Resp normal respiratory effort Cardio regular rate and regular rhythm GI soft to palpation, non-tender and non-distended GI Narrative: wound dressing is on. There is an area that is saturated however on the right lower aspect. Extremity normal to inspection Assessment & Plan (1) Subcutaneous abscess: (2) Postoperative fever: (3) Tachycardia: (4) Soft tissue abscess: (5) S/P : PLAN: Plan plan today is to see wound nurse and plan for discharge looking forward to more recommendations from ID about antibiotic selection of coag neg staph and morganii sp morgani in wound. She would like to be discharged tonight if at all possible. Anemia- status post iron infusion. She is asymptomatic at this time. No need for blood transfusion. Hypokalemia- resolved. Charges/Coding Visit Charges Inpatient E&M: 21171 Subs Hosp L2
--- NOTE | 2025-05-28 08:17 | CPS ---
Pt wore her home [employer]et CPAP last night.
--- NOTE | 2025-05-28 10:10 | PN.ID_ITS ---
Physical Exam Narrative Feeling better, no fever, no n/v/d. Const alert and no apparent distress General Appearance: cooperative Resp normal air movement and clear to auscultation bilaterally Cardio regular rate and regular rhythm GI soft to palpation, non-tender and non-distended Skin Skin Narrative: no new rash ID ID: Route of nutrition/ use of supplements: [] Nutritional Intake: [] IV Site: [] Disla Catheter: [] Assessment & Plan Assessment/Plan (1) Subcutaneous abscess: PLAN: S/p 05/12/25. Presented with SIRS. Now on zosyn. Aspiration cx now with morganella. Now s/p OR 05/27/[address] Hernandez for I&D of abscess. Overall much improved. Surg cx with GNR. Single bcx with MS-CoNS per pcr, so far consistent with contaminated sample. Ok for home with 8 days po bactrim DS, wrote rx, discussed potential side effects. Cr slightly up this AM, will need bmp and cbc on 06/01/25. Will follow as needed, I gave her my card, d/w nursing and director of casework department
--- NOTE | 2025-05-28 11:05 | CASEMGMT ---
[facility] Wound RN states to this RN CM that the plan is for the pt to get wound vac placement today and hopefully DC home today. TC to [facility] and notified of tentative DC plan. [facility] states that they are still waiting on a response from insurance. RN CM to the pt room and updated at this time. Pt denies further questions or concerns. CM to follow.
--- NOTE | 2025-05-28 11:44 | PCM.PN.SRG ---
Subjective Subjective Patient doing well today. Abdomen is feeling much better since drainage of abscess. Dressing was changed overnight due to Betadine bleeding through the dressing. White blood cell count greatly decreased. Patient was seen by wound care nurse and we are anticipating wound VAC placement today and possibly discharge home later today. Objective Data Objective Data Vital Signs: Vital Signs Temp Pulse Resp BP Pulse Ox O2 Del Method O2 Flow Rate 98.1 F 84 14 136/84 H 97 Room Air 2 05/28/25 08:35 05/28/25 08:35 05/28/25 08:35 05/28/25 08:35 05/28/25 08:35 05/28/25 08:35 05/27/25 11:07 Oxygen Flow Rate (L/min) 2 Oxygen Delivery Method Room Air Weight: 258 lb 2.581 oz Body Mass Index (BMI) 47.2 Intake & Output: Intake and Output for Last 24 Hours 05/26/25 05/27/25 05/28/25 23:59 23:59 23:59 Intake Total 2793.25 / 2793.25 762.00 / 1062.00 819 / 819 Output Total Balance 2793.25 / 2793.25 752.00 / 1052.00 819 / 819 Lab / Micro Data 05/28/25 05:30 05/28/25 05:30 Labs: Laboratory Results - last 24 hr 05/28/25 05:30: WBC 11.5 H, RBC 2.70 L, Hgb 7.9 L, Hct 24.1 L, MCV 89.3, MCH 29.3, MCHC 32.8, RDW Std Deviation 45.9 H, RDW Coeff of Tanner 14.1, Plt Count 331, MPV 8.8, Immature Gran % (Auto) 1.100 H, Neut % (Auto) 77.6 H, Lymph % (Auto) 12.9 L, [place] % (Auto) 7.9, Eos % (Auto) 0.4, Baso % (Auto) 0.1, Absolute Neuts (auto) 9.0 H, Absolute Lymphs (auto) 1.49, Nucleated RBC % 0, Sodium 141, Potassium 3.3, Chloride 109 H, Carbon Dioxide 17.8 L, Anion Gap 14, BUN 10, Creatinine 1.02, Estim Creat Clear Calc 93.45, Est GFR (MDRD) Non-Af 74, BUN/Creatinine Ratio 10.0, Glucose 89, Calcium 8.4 Micro: Microbiology 05/27/25 08:41 Incision/Surgical Site Gram Stain - Final 05/27/25 08:41 Incision/Surgical Site Wound Culture - Preliminary Gram negative ryann 05/26/25 16:20 Blood Culture (Wb) - Left Wrist Bacteria Detection (PCR) - Final Coag Negative Staph 05/26/25 16:20 Blood Culture (Wb) - Left Wrist Blood Culture - Preliminary Coag Negative Staph 05/25/25 10:25 Interface Orders Gram Stain - Final 05/25/25 10:25 Interface Orders Body Fluid Culture - Final Morganella morganii sp morgani 05/25/25 10:25 Interface Orders Anaerobic Culture - Preliminary Checking for anaerobes, further studies to follow. 05/24/25 19:45 Blood Culture (Wb) - Anticubital Right Blood Culture - Preliminary No growth in 48 hours. 05/24/25 19:30 Blood Culture (Wb) - Left Hand Blood Culture - Preliminary No growth in 48 hours. Physical Exam Narrative She is alert and oriented x 3. She is in no acute distress. Dressing is clean dry and intact. Wound appears to be stable Assessment & Plan Assessment/Plan (1) Subcutaneous abscess: PLAN: Plan Patient is a 34-year-old female who is postoperative day #1 from an incision and drainage of a abscess just deep to her recent incision. Her wound was left open and packed with Kerlix. Plan is for her to have wound VAC placed later today. She has been given the okay for discharge home on oral antibiotics by infectious disease. I am also okay with discharge later today as long as the wound VAC is placed and dressing changes can be arranged over the long holiday weekend. She can follow-up with me in 1 to 2 weeks
--- NOTE | 2025-05-28 13:07 | CASEMGMT ---
[facility] calls this RN CM and states that they can start care on Saturday. [facility] states that they will provide Wound Vac care on Saturday, Saturday, & Saturday this upcoming week and then subsequently, every MWF thereafter. This is due to the holiday on Saturday. RN CM to the patient's room at this time. Wound RN at bedside. Notified pt and wound RN with the information above, who both state that they are agreeable to this plan. Pt denies further needs from this RN CM. PLAN: Home with [facility]cf C with SOC Saturday for wound vac management.
--- NOTE | 2025-05-28 13:28 | WOUNDNOTE ---
wound photo: lower abdomen
--- NOTE | 2025-05-28 14:42 | WOUNDNOTE ---
Home VAC approved. patient switched to the home VAC at this time. proof of delivery form signed and faxed to [facility]. Home health care will start care on SaturdayApril 29. reviewed alarms, how to change canister, how to return VAC, etc. with pt and mother. Pt aware to take dressing to any follow up visit with the surgeon's office. pt appreciative of care.
--- NOTE | 2025-05-28 17:05 | PCM.DC.SUM ---
Providers Date of Admission: 05/24/25 Primary Care Physician: Dr. Lakesha Eisenberg MD Consultations 05/26/25 17:52 Consult: Infectious Disease Routine Consulting Provider: Thom Schmid Reason for Consult: fever, abscess postop, unresponsive to abx and drainage EMERGENT Consult: No MD Notified: Yes Date Notified: 05/26/25 Time Notified: 17:53 Method of Notification: Text 05/26/25 23:05 Consult: Onc/Wound/supervisor counseling and guidance Routine Comment: Reason for Consult:: post op wound management 05/27/25 08:50 Consult: Onc/Wound/supervisor counseling and guidance Routine Comment: Reason for Consult:: abdominal wound -- wound VAC Reason For Visit: SOFT TISSUE ABSCESS STATUS POST CSECTION Diagnosis Discharge Diagnosis (1) Subcutaneous abscess: Status: Acute Code(s): L02.91 - Cutaneous abscess, unspecified Plan plan today is to see wound nurse and plan for discharge looking forward to more recommendations from ID about antibiotic selection of coag neg staph and morganii sp morgani in wound. She would like to be discharged tonight if at all possible. Anemia- status post iron infusion. She is asymptomatic at this time. No need for blood transfusion. Hypokalemia- resolved. Medications at Discharge Home Medications escitalopram oxalate 10 mg tablet (Lexapro) 10 mg PO DAILY anxiety/depression #30 tabs 07/20/24 docosahexaenoic acid 200 mg capsule ( DHA) 200 mg PO DAILY #90 caps 07/28/24 famotidine 40 mg tablet (Pepcid) 40 mg PO DAILY indigestion #30 tabs 01/11/25 breast pump #1 ea 01/29/25 ibuprofen 800 mg tablet 800 mg PO Q8H PRN pain #30 tabs 05/12/25 acetaminophen 500 mg capsule 1,000 mg PO Q6H PRN fever or pain 05/24/25 CPAP - Continuous Positive Airway Pressure([facility] INFORMATIONAL USE ONLY) 05/28/25 oxycodone 5 mg tablet 5 mg PO Q4H PRN PRN Pain Score 4-10 7 days #30 tabs 05/28/25 sulfamethoxazole 800 mg-trimethoprim 160 mg tablet (Bactrim DS) 1 tab PO BID 8 days #16 tabs 05/28/25 Hospital Course Operations - (incision and drainage of abdominal wall abscess ) Summary of Care Provided Minutes Spent on Discharge: 30 Hospital Course: The patient was admitted on 05/24/2025 through the emergency room for fever chills and a finding on CAT scan indicative of a 15 cm abdominal wall abscess lying in the subcutaneous space. She is status post section from 05/12/2025. The patient was started on Zosyn and admitted to the [facility] floor with a consultation for interventional radiology for the next morning. On 05/25/2025 she underwent interventional radiology procedure where they drained 150 cc of bloody fluid from the abdomen and sent for culture. The patient started to clinically improve for a day and she was observed while we waited for culture results. On hospital day #3 however she spiked a fever again and became tachycardic the decision was made to start vancomycin and consult infectious disease and general surgery. A repeat CAT scan showed that the abscess was down to 12 cm and tracking to the incision. On on 05/27/2025 she underwent an incision and drainage of her section wound by Dr. Hernandez . The wound was packed and she remained on the medical surgical floor on vancomycin and Zosyn. Later in the day the vancomycin was discontinued by infectious disease. Her blood culture did come back positive however this was deemed to be a contaminant by infectious disease. On 05/28/2025 the patient proved to be clinically stable and the decision was made to discharge her to home with Bactrim for 10 days. The wound nurse came by and applied a wound VAC and she will be following up with the wound clinic outpatient. Physical Exam Narrative She is alert and oriented x 3. She is in no acute distress. Dressing is clean dry and intact. Wound appears to be stable Const alert, oriented x3 and no apparent distress HEENT normocephalic Resp normal respiratory effort and normal air movement GI soft to palpation, non-tender and non-distended Rectal Exam: other Other Details: Incision is clean, dry, and intact no CVA tenderness Extremity normal to inspection General Extremity: edema bilateral (trace ) Weight / BMI Weight Weight: 258 lb 2.581 oz Body Mass Index (BMI) 47.2 ABG / Lab / Microbiology Data 05/28/25 05:30 05/28/25 05:30 Laboratory: Laboratory Results - last 24 hr 05/28/25 05:30: WBC 11.5 H, RBC 2.70 L, Hgb 7.9 L, Hct 24.1 L, MCV 89.3, MCH 29.3, MCHC 32.8, RDW Std Deviation 45.9 H, RDW Coeff of Tanner 14.1, Plt Count 331, MPV 8.8, Immature Gran % (Auto) 1.100 H, Neut % (Auto) 77.6 H, Lymph % (Auto) 12.9 L, [place] % (Auto) 7.9, Eos % (Auto) 0.4, Baso % (Auto) 0.1, Absolute Neuts (auto) 9.0 H, Absolute Lymphs (auto) 1.49, Nucleated RBC % 0, Sodium 141, Potassium 3.3, Chloride 109 H, Carbon Dioxide 17.8 L, Anion Gap 14, BUN 10, Creatinine 1.02, Estim Creat Clear Calc 93.45, Est GFR (MDRD) Non-Af 74, BUN/Creatinine Ratio 10.0, Glucose 89, Calcium 8.4 Microbiology: Microbiology 05/27/25 08:41 Incision/Surgical Site Gram Stain - Final 05/27/25 08:41 Incision/Surgical Site Wound Culture - Preliminary Gram negative ryann 05/26/25 16:20 Blood Culture (Wb) - Left Wrist Bacteria Detection (PCR) - Final Coag Negative Staph 05/26/25 16:20 Blood Culture (Wb) - Left Wrist Blood Culture - Preliminary Coag Negative Staph 05/25/25 10:25 Interface Orders Gram Stain - Final 05/25/25 10:25 Interface Orders Body Fluid Culture - Final Morganella morganii sp morgani 05/25/25 10:25 Interface Orders Anaerobic Culture - Preliminary Checking for anaerobes, further studies to follow. 05/24/25 19:45 Blood Culture (Wb) - Anticubital Right Blood Culture - Preliminary No growth in 48 hours. 05/24/25 19:30 Blood Culture (Wb) - Left Hand Blood Culture - Preliminary No growth in 48 hours. D/C Instructions Discharge Activity: May Drive and May Shower May resume sexual activity in: 4-6 weeks Weight Bearing Status: Weight bearing as tolerated Lifting Restricted to (Lbs): 10 Call your doctor if your incision/area has: Sudden Increased Bleeding, Increased Pain/ Swelling, Increased Redness, Foul Smelling Discharge and Swelling at the incision site Call your doctor if you observe: Fever of 101 or Higher, Using more than 1 pad per hour, Dizziness, Fainting spells and Chest pain Change Dressing in: leave in place till F/U Remove Dressing in: do not remove dressing DC O2, CPAP, BIPAP Needs Home O2 Discharge instructions: No DC home with Oxygen: No Please Follow Up With: Edel Bullock DO When: 2 weeks Meaningful Use Info Meaningful Use Meaningful Use Diagnoses (Choose all that apply): None applicable Discharge Plan Admission Admit Date/Time: 05/24/25 19:36 Primary Reason for Your Visit: abdominal abscess Attending Provider: Edel Bullock Primary Care Provider: Lakesha Eisenberg Consulting Providers: Thom Schmid Instructions Patient Instructions: Abscess Drainage, [place] Hernández Drain Tube Dc, Post Op Drain Emptying Steps Discharge Orders/Prescriptions Prescriptions: New sulfamethoxazole-trimethoprim [Bactrim DS] 800-160 mg tablet 1 tab PO BID 8 Days Qty: 16 0RF oxycodone 5 mg Tablet 5 mg PO Q4H PRN PRN (Reason: Pain Score 4-10) 7 Days Qty: 30 0RF Continued escitalopram oxalate [Lexapro] 10 mg tablet 10 mg PO DAILY Qty: 30 5RF (DME) breast pump Device See Rx Instructions .ROUTE .MEDSUPPLY Qty: 1 0RF Rx Instructions: As directed ibuprofen 800 mg tablet 800 mg PO Q8H PRN (Reason: pain) Qty: 30 0RF (DME) CPAP - Continuous Positive Airway Pressure([facility] INFORMATIONAL USE ONLY) Device See Rx Instructions .ROUTE Patient Comments: Autoset CPAP from [employer] Rx Instructions: As directed DHA 200 mg capsule 200 mg PO DAILY Qty: 90 4RF famotidine [Pepcid] 40 mg tablet 40 mg PO DAILY Qty: 30 5RF No Action acetaminophen 500 mg capsule 1,000 mg PO Q6H PRN (Reason: fever or pain) Referrals / Follow Up: Lakesha Eisenberg MD [Primary Care Provider] - Disposition Disposition (needs filled in before D/C Order can be placed): Home, Self Care Charges/Coding Multi Select Codes Visit Charges Visit Charges: 40508 Disch Hosp
== END 2025-05-28 20:29 | disposition home or self-care (01) | DRG 776 ==
LOC: ED 18:34 → MS3 05-25 09:04
PROVIDERS: Anesthesiology; Obstetrics & Gynecology; Surgery; Admitting Provider Obstetrics & Gynecology; Emergency Provider Emergency Medicine; PCP Internal Medicine; Visit Provider Obstetrics & Gynecology
PROC: 0J980ZZ Drainage of Abdomen Subcutaneous Tissue and Fascia, Open Approach (ICD-10-PCS; principal; 2025-05-27 07:20)
DX: O86.02 Infection of obstetric surgical wound, deep incisional site (principal); L02.211 Cutaneous abscess of abdominal wall; L03.311 Cellulitis of abdominal wall; O99.215 Obesity complicating the puerperium; E66.01 Morbid (severe) obesity due to excess calories; E28.2 Polycystic ovarian syndrome; F41.8 Other specified anxiety disorders; K21.9 Gastro-esophageal reflux disease without esophagitis; E87.6 Hypokalemia; B96.4 Proteus (mirabilis) (morganii) as the cause of diseases classified elsewhere; O99.73 Diseases of the skin and subcutaneous tissue complicating the puerperium; O90.2 Hematoma of obstetric wound; O99.285 Endocrine, nutritional and metabolic diseases complicating the puerperium; O99.893 Other specified diseases and conditions complicating puerperium; O99.345 Other mental disorders complicating the puerperium; O90.81 Anemia of the puerperium; O99.63 Diseases of the digestive system complicating the puerperium; R50.82 Postprocedural fever; R00.0 Tachycardia, unspecified; Z79.899 Other long term (current) drug therapy; Z98.891 History of uterine scar from previous surgery; Z87.891 Personal history of nicotine dependence; Z90.49 Acquired absence of other specified parts of digestive tract
CPT/HCPCS: 36415; 71275; 74176; 74177; 77012; 80048; 80053; 81001; 83605; 85025; 85610; 85730; 87040; 87070; 87075; 87077; 87102; 87149; 87186; 87205; 87206; 93005; 97802; 99285; J1756; Q9967; A4216; J2405

== ENCOUNTER → 2025-06-01 | Outpatient (CLI) | payer BC, SELFPAY ==
[2025-06-01 18:12] LABS: Hematocrit 30.4 % (37-47); Hemoglobin 9.7 g/dL (12.0-15.0); Immature Granulocytes Count 0.490 X10^3/uL (0.0-0.0); Mean Corp Hgb Conc 31.9 g/dL (32-36); Mean Corpuscular Volume 89.4 fL (81-99); Mean Platelet Vol. 8.8 fl (6.2-12.0); NRBC Flagged by Analyzer 0 % (0-5); Platelet Count 500 K/mm3 (150-450); RBC Distribution Width CV 13.9 % (11.6-14.6); RBC Distribution Width SD 45.6 fl (35.1-43.9); Red Blood Count 3.40 M/mm3 (4.2-5.4); White Blood Count 11.4 K/mm3 (4.4-11.0)
== END | disposition home or self-care (01) ==
PROVIDERS: PCP Internal Medicine; Referring Provider Obstetrics & Gynecology; Visit Provider Obstetrics & Gynecology
DX: L02.91 Cutaneous abscess, unspecified (principal)
CPT/HCPCS: 36415; 85025

== ENCOUNTER 2025-06-05 14:40 | Emergency (ER) | payer BC, SELFPAY ==
[2025-06-05 14:41] VITALS: BP 151/107; PULSE 95; RESP 16; TEMP 36.8; O2SAT 98
--- NOTE | 2025-06-05 16:21 | EX.ED.DYSGE1 ---
HPI History of Present Illness Chief Complaint: Wound Check Detail of Chief Complaint: Concern for wound infection Informant: patient Narrative Narrative: Patient presents emergency department with concern about her abdominal wound. She tells me she had a on May 12. She subsequently developed an infection and had to go to the operating room for debridement and subsequently had a wound VAC placed. Initially was admitted for 5 days and was on Zosyn and vancomycin. She finished Bactrim after she grew out Morganella. Bactrim was finished today. Visiting nurse came in today to change her wound VAC and thought the wound looked well but she has some surrounding erythema around the wound VAC area and into the groin with concern for possible yeast infection. Patient called her [employer] on-call and spoke with the purchasing manager/sales on-call and was advised to come to the ER to get it evaluated. Patient has had no fevers or chills or sweats. She has not had any drainage from the wound and the wound VAC. She has had no other signs of infection. [facility] Medical History PCOS (polycystic ovarian syndrome) Infertility Depression with anxiety GERD (gastroesophageal reflux disease) Home Medications ?Medication ?Instructions ?Recorded ?Last Taken ?Type escitalopram oxalate 10 mg tablet 10 mg PO DAILY anxiety/depression 07/20/24 05/23/25 Rx (Lexapro) #30 tabs docosahexaenoic acid 200 mg 200 mg PO DAILY #90 caps 07/28/24 05/23/25 Rx capsule ( DHA) famotidine 40 mg tablet (Pepcid) 40 mg PO DAILY indigestion #30 tabs 01/11/25 05/23/25 Rx breast pump #1 ea 01/29/25 Unknown Rx ibuprofen 800 mg tablet 800 mg PO Q8H PRN pain #30 tabs 05/12/25 05/24/25 Rx acetaminophen 500 mg capsule 1,000 mg PO Q6H PRN fever or pain 05/24/25 05/24/25 History CPAP - Continuous Positive Airway 05/28/25 Unknown History Pressure([facility] INFORMATIONAL USE ONLY) oxycodone 5 mg tablet 5 mg PO Q4H PRN PRN Pain Score 05/28/25 Unknown Rx 4-10 7 days #30 tabs sulfamethoxazole 800 1 tab PO BID 8 days #16 tabs 05/28/25 Unknown Rx mg-trimethoprim 160 mg tablet (Bactrim DS) fluconazole 100 mg tablet 100 mg PO DAILY 7 days #7 tabs 06/05/25 Unknown Rx Allergy/AdvReac Type Severity Reaction Status Date / Time No Known Allergies Allergy Verified 06/05/25 14:44 Family History Mother Hypertension Grandfather Heart disease Hypertension Diabetes Cancer Macular degeneration Grandmother Macular degeneration Surgical History H/O successful vaginal after , currently H/O section History of surgical procedure S/P cholecystectomy S/P S/P wisdom tooth extraction Social History adopted: No household members: spouse and children housing: house number of children: 1 current occupational status: unemployed current occupation: [employer] current occupational exposures/hazards: No 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) pets and animals: cat(s) history of recent travel: Yes ([place] for IVF) out of state: Yes sexually active: Yes Smoking Status: Never smoker alcohol intake: current alcohol intake frequency: holidays/special occasions only details: Not while substance use type: former substance user Date of last use: May 2024 and marijuana diet: vegetarian well-balanced diet: about half the time caffeine: Yes Type: carbonated beverages Number of servings: 1 eating out: 4 or more times/week during the past year weight has: remained stable what type of physical activity do you participate in: none landon/mosque: None seatbelt use: always do you feel safe at home: Yes additional social history: : [employer] (works from home) ROS ROS ED ROS Narrative Wound check, concern for infection Review of Systems ROS Unobtainable: other Constitutional Constitutional ED: Reports lethargy; Denies chills, fever(s), sweats or weight loss Eyes Eyes: Denies blurry vision, change in vision or diplopia ENT ENT ED: Denies rhinorrhea or sore throat Cardiovascular Cardiovascular: Denies chest pain, orthopnea or racing heartbeat Respiratory/Chest Respiratory/Chest: Reports dyspnea and dyspnea on exertion; Denies cough, orthopnea or sputum Gastrointestinal Gastrointestinal: Denies abdominal pain, diarrhea, nausea or vomiting Genitourinary Genitourinary ED: Denies dysuria, hematuria or urinary frequency Musculoskeletal Musculoskeletal: Denies arthralgias, back pain, myalgias or neck pain Integumentary Reports other Details: Redness around abdominal wound ; Denies abscess, Abrasions or rash Neurologic Neurologic: Denies headache(s) or weakness Psychiatric Psychiatric: Denies anxiety, depression or suicidal thoughts Endocrine Endocrinology: Denies polydipsia, polyphagia or polyuria Hematologic/Lymphatic Hematologic/Lymphatic: Denies easy bleeding, easy bruising or lymphadenopathy Allergic/Immunologic Allergic/Immunologic ED: Denies mouth swelling, tongue swelling or urticaria EXAM Physical Exam Const Vital Signs: 06/05/25 14:41 06/05/25 16:41 06/05/25 16:52 Temperature 98.2 F 98.2 F Temperature Source Oral Oral Pulse Rate 95 75 Respiratory Rate 16 16 Blood Pressure 151/107 H 122/80 H 122/80 H Blood Pressure Mean 121 94 94 Pulse Ox 98 95 Oxygen Delivery Method Room Air Room Air 06/05/25 16:55 Temperature 98.2 F Temperature Source Oral Pulse Rate 80 Respiratory Rate 16 Blood Pressure 113/71 Blood Pressure Mean 85 Pulse Ox 98 Oxygen Delivery Method Room Air Positive well nourished and well developed General Appearance ED: well developed and NAD HEENT Reports TM's clear and moist mucous membranes normocephalic and atraumatic; Negative for trauma or tenderness Tympanic Membrane ED: Yes TM's clear Eyes PERRL and EOMs intact bilaterally General Eye ED: Negative for pale conjunctiva or scleral icterus Neck no lymphadenopathy, supple and no JVD General: Negative for tenderness Chest Wall inspection of chest normal and palpation of chest normal Chest: Negative for tenderness Resp normal respiratory effort and clear to auscultation bilaterally Effort and Inspection: Negative for respiratory distress or pain with movement Auscultation: Negative for rhonchi, wheezes or diminished lung sounds Cardio regular rate, regular rhythm, S1 normal heart sound, S2 normal heart sound and no murmurs Peripheral Pulses: pulses 2+ throughout GI normal to inspection, nondistended, normoactive bowel sounds, soft to palpation, non-tender, non-distended and no masses GI Narrative: Evaluation of the abdomen and reveals that she has a wound VAC in place over the lower abdomen infraumbilically. There was some faint erythema surrounding with satellite like lesions most consistent with likely yeast infection as it involves the bilateral crural spaces. Also some erythema over the mons pubis. Back/Spine no CVA tenderness and no thoracic nor lumbar tenderness Extremity normal to inspection General Extremety ED: Negative for edema General Extremity: Negative for edema Neuro oriented x3, CN's II-XII intact bilaterally, no sensory deficits noted and gait normal Sensorium / Orientation: awake, alert, oriented to person, oriented to place and oriented to time Motor Exam: strength 5/5 throughout and strength abnormal Psych mental status grossly normal Skin no rashes or lesions noted and no wounds MDM MDM MDM Narrative Medical decision making narrative: Patient presents with concern for ongoing wound infection versus yeast infection. Recent history of with secondary infection that required surgical intervention and debridement. Currently has a wound VAC. Clinically she looks well. Wound was initially evaluated today by visiting nurse who felt looked well. She still has the wound VAC on right did not remove the wound VAC. Surrounding the wound and there is some faint erythema with satellite type lesions consistent with yeast including some erythema of the pubic mons. I did obtain a CBC with differential that showed a normal white count of 10.8 with hemoglobin 9.5 and platelet count of 406. Lactate was normal at less than 1. I did discuss case with Dr. Zheng who is the surgeon that cared for the patient and ordered the wound VAC. Will start patient on oral Diflucan and she has an appointment to see the auto radiator specialist in 2 days. Patient advised to return to the ER if increased redness or swelling or fever or drainage from the wound or condition should worsen anyway. Lab Data Attestation: I reviewed the patient's lab results. Labs: Laboratory Results - last 24 hr 06/05/25 16:45 WBC 10.8 RBC 3.38 L Hgb 9.5 L Hct 30.1 L MCV 89.1 MCH 28.1 MCHC 31.6 L RDW Std Deviation 45.5 H RDW Coeff of Tanner 14.1 Plt Count 406 MPV 8.5 Immature Gran % (Auto) 1.200 H Neut % (Auto) 70.2 H Lymph % (Auto) 19.9 [place] % (Auto) 5.6 Eos % (Auto) 2.5 Baso % (Auto) 0.6 Absolute Neuts (auto) 7.6 Absolute Lymphs (auto) 2.15 Nucleated RBC % 0 Lactic Acid < 1.0 Discharge Plan Triage Chief Complaint: Wound Check ED Provider: Misty Conteh Dx/Rx/DC Orders Clinical Impression: Infection due to yeast Instructions: ED Nataly Skin Infection (Adult) Prescriptions: New fluconazole 100 mg tablet 100 mg PO DAILY 7 Days Qty: 7 0RF No Action escitalopram oxalate [Lexapro] 10 mg tablet 10 mg PO DAILY Qty: 30 5RF (DME) breast pump Device See Rx Instructions .ROUTE .MEDSUPPLY Qty: 1 0RF Rx Instructions: As directed ibuprofen 800 mg tablet 800 mg PO Q8H PRN (Reason: pain) Qty: 30 0RF acetaminophen 500 mg capsule 1,000 mg PO Q6H PRN (Reason: fever or pain) (DME) CPAP - Continuous Positive Airway Pressure([facility] INFORMATIONAL USE ONLY) Device See Rx Instructions .ROUTE Patient Comments: Autoset CPAP from [employer] Rx Instructions: As directed sulfamethoxazole-trimethoprim [Bactrim DS] 800-160 mg tablet 1 tab PO BID 8 Days Qty: 16 0RF oxycodone 5 mg Tablet 5 mg PO Q4H PRN PRN (Reason: Pain Score 4-10) 7 Days Qty: 30 0RF DHA 200 mg capsule 200 mg PO DAILY Qty: 90 4RF famotidine [Pepcid] 40 mg tablet 40 mg PO DAILY Qty: 30 5RF Primary Care Provider: Lakesha Eisenberg Referrals: Lakesha Eisenberg MD [Primary Care Provider] - Activity Restrictions/Additional Instructions: Keep your appointment with the wound center Print Language: Gu[place]an Disposition Disposition: Home, Self Care
--- OUTSIDE RECORDS SUMMARY | 2025-06-05 16:27 | XMS RPT_ITS | CCD ---
Author Organization [facility] CliniSynj Care Team Providers Care Farm Adviser Name Role Phone Marta Del Valle Unavailable [...] Julissa HERNANDEZ Attending Unavailable MARTA DEL VALLEBETH [facility] Julissa Saleh Admitting Unavailable MARTA DEL VALLE Primary Care Marta Liu MD Primary Care Provider Marta Del Valle MD Primary Care Provider [phone] Faith Starkey MD Unavailable Marta Del Valle MD Primary Care Provider Lawrence Young MD Unavailable [phone] MARTA DEL VALLE Attending Unavailable MARTA DEL [...] Unavailable Dr. Edel Bullock Attending Provider [phone] SHIRA DEL VALLEIN Referring Provider Unavailable Dr. Edel Bullock Referring Provider [phone] Dr. Edel Bullock Other Provider Care Physician, No Primary Primary Care Provider Unavailable Unavailable Primary Care Provider UnavailFaith Ny MD Unavailable Marta Del Valle MD Primary Care Provider [phone] Lawrence oYung MD Unavailable [phone] Steffen Eisenberg MD Primary Care Provider Generic [...] Provider Dr. Edel Bullock DO Attending Provider Znader WOLFE, Dr. Jaffe Attending Provider [phone] Ld Fermni MD Emergency Provider Tashia WOLFE, Dr. Chiu Attending Provider Dr. Apple Lao MD Referring Provider [phone] Dr. Steffen Eisenberg MD Primary Care Provider [...] Twan Diehl DO, Dr. Hollingsworth Other Provider [phone] Kiley Jain CNM Other Provider [phone] Faina WOLFE, Dr. Crowder Primary Care Provider [phone] Faina WOLFE, Dr. Crowder Referring Provider Tashia WOLFE, Dr. Chiu Attending Provider [phone] EDEL DAMICO Referring Unavailab le FAINA, STEFFEN G Primary Care Unavailable TANNA KIMBALL Attending Unavailable SAAD BRADLEY Attending Unavailable EDEL DAMICO Referring Unavailab le FAINA, STEFFEN G Primary Care Unavailable EDEL DAMICO Referring Unavailab EDEL Norman Attending Unavailable FAINA, STEFFEN G Primary Care Unavailable EDEL DAMICO Referring Unavailab EDEL Norman Attending Unavailable CL EISENBERGIA G Primary Care Unavailable NO PRIMARY CARE, Primary Care Unavailable OSMANI LLANES Attending Unavailable EDEL DAMICO Referring Unavailab OSAMNI Francisco Attending Unavailable NO PRIMARY CAREMD Primary Care Unavailable EDEL DAMICO Referring Unavailab OSMANI Francisco Attending Unavailable NO PRIMARY CAREMD Primary Care Unavailable OSMANI LLANES Referring Unavailable NO PRIMARY CARE, Primary Care Unavailable EDEL DAMICO Referring Unavailab SANTA Sarkar Attending Unavailable NO PRIMARY CAREMD Primary Care Unavailable EDEL DAMICO Referring Unavailab SANTA Sarkar Attending Unavailable EDEL DAMICO Referring Unavailab le FAINA, STEFFEN G Primary Care Unavailable TANNA KIMBALL Attending Unavailable Twan Diehl DO, Dr. Hollingsworth Admit Provider [phone] Mariana Jonas CNM Attending Provider [phone] Dr. Pee Sargent DO Emergency Provider [phone] Dr. Pee Sargent DO Emergency Provider Sharmaine WOLFE, Dr. Tomas Other Provider David WOLFE, Dr. Garrett Wilson Attending Provider Faina, Steffen Attending Unavailable Faina, Steffen Primary Care Unavailable [place], Steffen Referring Unavailable Kiley Jain Referring Unavailable Kiley Jain Attending Unavailable Faina, Steffen Primary Care Unavailable Faina, Steffen Primary Care Unavailable Vande Maggy Diehlfer Attending Unavailabl e Vande Velde, Edel Referring Unavailabl e Faina, Steffen Primary Care Unavailable [place], Steffen Referring Unavailable Edel Bullock Attending Unavailabl e Vande Velde, Edel Admitting Unavailabl e Vande Velde, Edel Attending Unavailabl e Vande Velde, Edel Referring Unavailabl e Faina, Steffen Primary Care Unavailable Faina, Steffen Referring Unavailable Care Physician, No Primary Primary Care Unava ilable [place], Steffen Attending Unavailable [place], Steffen Primary Care Unavailable Maggy Bullockfer Attending Unavailabl e Vande Velde, Edel Referring Unavailabl e [place], Steffen Primary Care Unavailable Vande VelEdel gómez Referring Unavailabl e Vande Velde, Edel Attending Unavailabl e [place], Steffen Primary Care Unavailable Edel Bullock Attending Unavailabl e Vande Velde, Edel Referring Unavailabl e Levon Schmid Consulting Unavailable Garrett Hernandez Attending Unavailable Faina, Steffen Primary Care Unavailable Vande VelEdel gómez Admitting Unavailabl e Vande Velde, Edel Consulting Unavailabl e Vande Velde, Edel Attending Unavailabl e [place], Steffen Primary Care Unavailable Vande VeldeEdel Referring Unavailabl e Vande Velde, Edel Attending Unavailabl e Faina, Steffen Primary Care Unavailable Kiley Jain Referring Unavailable Kiley Jain Attending Unavailable Fermin, Ld Attending Unavailable [place], Steffen Primary Care Unavailable Faina, Steffen Primary Care Unavailable Vande Velde Edel Attending Unavailabl Apple Godoy Attending Unavailable Apple Lao Referring Unavailable [place], Steffen Primary Care Unavailable [place], Steffen Referring Unavailable Kiley Jain Attending Unavailable Faina, Steffen Primary Care Unavailable [place], Steffen Primary Care Unavailable VandEdel Logan Attending Unavailabl e [place], Steffen Referring Unavailable Faina, Steffen Referring Unavailable Faina, Steffen Primary Care Unavailable Edel Bullock Attending Unavailabl e Faina, Steffen Primary Care Unavailable Edel Bullock Consulting Unavailhermes e Kiley Jain Attending Unavailable Kiley Jain Referring Unavailable Levon Schmid Consulting Unavailable Edel Bullock Admitting Unavailabl e [place], Steffen Primary Care Unavailable Edel Bullock Attending Unavailabl e Faina, Steffen Attending Unavailable [place], Steffen Primary Care Unavailable Edel Bullock Consulting Unavailabl e Edel Bullock Admitting Unavailabl e [place], Steffen Primary Care Unavailable Edel Bullock Attending Unavailabl e Edel Bullock Consulting Unavailabl e Edel Bullock Admitting Unavailabl Mariana Arechiga Attending Unavailable Faina, Steffen Primary Care Unavailable Edel Bullock Referring Unavailabl Apple Godoy Attending Unavailable Faina, Steffen Primary Care Unavailable [place], Steffen Referring Unavailable Care Physician, No Primary Referring Unava ilable Care Physician, No Primary Primary Care Unava ilable [place], Steffen Attending Unavailable Edel Bullock Attending Unavailabl e Faina, Steffen Primary Care Unavailable [place], Steffen Referring Unavailable Faina, Steffen Referring Unavailable Faina, Steffen Primary Care Unavailable Edel Bullock Attending Unavailabl e [place], Steffen Referring Unavailable Faina, Steffen Primary Care Unavailable Apple Lao Attending Unavailable Faina, Steffen Primary Care Unavailable Edel Bullock Attending Unavailabl e [place], Steffen Referring Unavailable [place], Steffen Primary Care Unavailable Vande Velde, Edel Attending Unavailabl e [place], Steffen Referring Unavailable Apple Lao Attending Unavailable [place], Steffen Referring Unavailable [place], Steffen Primary Care Unavailable Pedro MANAGER CREDIT COLLECTIONS, Aziza Attending Unavailable [place], Steffen Primary Care Unavailable Aida Shields Attending Unavailable Faina, Steffen Primary Care Unavailable Edel Bullock Consulting UnavailKiley Durán Referring Unavailable Kiley Jain Attending Unavailable [place], Steffen Primary Care Unavailable Kiley Jain Consulting Unavailable Edel Bullock Attending Unavailabl e Edel Bullock Attending Unavailabl e [place], Steffen Primary Care Unavailable Faina, Steffen Referring Unavailable Apple Lao Attending Unavailable [place], Steffen Primary Care Unavailable [place], Steffen Referring Unavailable Faina WOLFE, Dr. Crowder Primary Care Provider Dr. Steffen Eisenberg MD Referring Provider Dr. Edel Bullock DO Attending Provider Allergies Allergy Classification Reported Allergen(s) Allergy Type Date of Onset Reaction(s) Facility (13 sources) Amoxicillin; Translations: [AMOXICILLIN] Drug Allergy 1 Diarrhea, GI Intolerance [facility] (2 sources) ALLERGIES NOT ON FILE; Translations: [ALLERGIES NOT ON FILE] Propensity to adverse reactions (disorder) [facility] 2 Repository Medications Current Medications Medication Drug Class(es) Dates Sig (Normalized) Sig (Original) acetaminophen 500 mg oral capsule (3 sources) Start: 05-24-2025 take 2 capsules by mouth every six hours as needed for pain Acetaminophen 500 mg capsule Active 1000 mg PO EVERY 6 HOURS as needed for fever or pain May 24, 2025 12:00am [id number] 200 actuat albuterol 0.09 mg/actuat metered dose inhaler (2 sources) beta2-Adrenergic Agonist Start: 01-12-2024 take 2 puff(s) by inhalation every six hours as needed for wheezing albuterol HFA (PROVENTIL HFA, VENTOLIN HFA) 90 mcg/actuation inhaler Indications: Acute cough Inhale 2 Puffs as instructed every 6 hours as needed for wheezing/shortness of breath. 1 Each 01/12/2024 Active Comment [...] on above: Take 1 capsule by mo [facility] three times a day as needed for up to 7 days. Breast Pump device (19 sources) Start: 01-29-2025 Breast Pump device Active 0 .ROUTE .MEDSUPPLY 1 0 January 29, 2025 12:00am As directed Start: 01-29-2025 Breast Pump de vice Active 0 .ROUTE .MEDSUPPLY 1 January 29, 2025 12:00am As directed Cpap - Continuous Positive Airway Pressure([facility] Informational Use Only) device (2 sources) Start: 05-28-2025 Cpap - Continu ous Positive Airway Pressure([facility] Informational Use Only) device Active 0 .ROUTE May 28, 2025 12:00am DC As directed Desogestrel / Ethinyl Estradiol (13 [...] capsule (20 sources) Start: 11-04-19 End: 07-28-20 24 take 1 capsule by mouth once daily Docosahexaenoic Acid ( Dha) 200 mg capsule Active 200 mg PO DAILY July 28, 2024 12:02pm escitalopram 10 mg oral tablet (20 sources) Serotonin Reuptake Inhibitor Start: 11-04-19 End: 07-20-20 24 take 1 tablet by mouth once daily [...] 07/30/2017 Active ibuprofen 800 mg oral tablet (4 sources) Nonsteroidal Anti-inflammatory Drug Start: 05-12-2025 take 1 [...] Active Comment on above: Take by mouth. ondansetron 4 mg disintegrating oral tablet (5 [...] 03-19-2019 ondansetron (ZOFRAN) injecti on 4 mg oxyCODONE hydrochloride 5 mg oral tablet (2 sources) Opioid Agonist Start: 05-28-2025 take 1 tablet by mouth every four hours as needed for pain Oxycodone 5 mg Tablet Active 5 mg PO EVERY 4 HOURS NEEDED as needed for Pain Score 4-10 30 7 0 May 28, 2025 Abscess of skin Cutaneous abscess, unspecified pantoprazole 40 mg delayed release oral tablet [...] CAPSU LE BY MOUTH EVERY DAY vit 76-jgdr-qlivb-dha ( + DHA) 28 mg iron- 975 mcg-200 mg Cmpk (2 sources) Start: 09-02-2019 take 1 capsule by mouth once daily vit 70-hofa-ztgtj-dha ( + DHA) 28 mg iron- 975 mcg-200 mg Cmpk Take 1 capsule by mouth daily . 0 09/02/2019 Active Vit-Fe Cog-IY-Tsjxf (PNV Plus Multivit+DHA) 27-1 & 312 MG Misc (4 sources) Start: 07-29-2024 Vit-Fe Rnk-ZD-Vgcxe (PNV Plus Multivit+DHA) 27-1 & 312 MG Misc 1 tab + 1 cap daily. Due for yearly follow up - must be seen to get additional refills 180 Each 07/29/2024 Active Start: 10-29-2023 End: 07-29-2024 take 1 tablet by mouth once daily Vit-Fe Izn-OB-Bylqw (PNV Plus Multivit+DHA) 27-1 & 312 MG Misc TAKE 1 TAB & 1 CAPSULE BY MOUTH EVERY DAY 180 Each 1 10/29/2023 07/29/2024 Discontinued Start: 07-03-2022 End: 09-27-2022 take 1 tablet by mouth once daily Vit-Fe Crf-WD-Uhrql (PNV Plus Multivit+DHA) 27-1 & 312 MG Misc TAKE 1 TAB & 1 CAPSULE BY MOUTH EVERY DAY 0 07/03/2022 09/27/2022 Discontinued (Reorder) Start: 07-03-2022 take 1 tablet by claude th once daily Vit-Fe Nuu-XA-Vzmkz (PNV Plus Multivit+DHA) 27-1 & 312 MG [...] on formulary 90 tablet 3 09/27/2022 Active sulfamethoxazole 800 mg / trimethoprim 160 mg oral tablet (2 sources) Dihydrofolate Reductase Inhibitor Antibacterial, Sulfonamide Antimicrobial Start: 05-28-2025 Sulfamethoxazole- Trimethoprim (Bactrim Ds) 800-160 mg tablet Active 1 {tbl} PO TWICE A DAY 16 8 0 May 28, 2025 12:00am Completed/Discontinued Medications Medication Drug Class(es) Dates Sig (Normalized) Sig (Original) acetaminophen 325 mg / oxyCODONE hydrochloride 5 mg oral tablet (4 sources) Opioid Agonist Start: 05-12-2025 End: 05-24-2025 Oxycodone-Acetamin ophen (Percocet) 5-325 mg tablet Discontinued 1 {tbl} PO Q4H as needed for pain 20 7 0 May 12, 2025 May 24, 2025 2:40pm Status post delivery History of uterine scar from previous surgery aspirin 81 mg oral tablet (13 sources) Platelet Aggregation Inhibitor, Nonsteroidal Anti-inflammatory Drug Start: 04-19-2025 End: 05-24-2025 take 1 tablet by mouth once daily Aspirin 81 mg tablet Discontinued 81 mg PO DAILY April 19, 2025 12:00am May 24, 2025 2:40pm Start: 03-18-2019 End: 03-19-2019 aspirin chewable tablet 324 mg take 81 mg by mouth once daily A SPIRIN 81 PO Take 81 mg by mouth daily. 0 Active dextromethorphan hydrobromide 3 mg/ml / promethazine hydrochloride 1.25 mg/ml oral solution (2 sources) Phenothiazine, Uncompetitive Y-trgwmx-X-aspartate Receptor Antagonist, Sigma-1 Agonist Start: 08-10-2022 End: 09-27-2022 promethazine-dextromethorpha n 6.25-15 MG/5ML Syrup Indications: Post-viral cough syndrome Take 5 mL by mouth at bedtime as needed for Cough. 60 mL 0 08/10/2022 09/27/2022 Discontinued (Therapy completed) diphenhydrAMINE hydrochloride 25 mg oral capsule (19 sources) Histamine-1 Receptor Antagonist Start: 10-02-2024 End: 11-05-2024 take 1 capsul e by mouth at bedtim e as needed Diphenhydramine Hcl (Benadryl) 25 mg capsule Discontinued 25 mg PO AT BEDTIME as needed October 02, 2024 1:00am November 05, 2024 3:32pm estradiol 2 mg oral tablet (19 sources) Estrogen Start: 10-02-2024 End: 11-05-2024 take [...] of cycles 5 tablet 1 05/15/2023 Active levothyroxine sodium 0.025 mg oral tablet (20 sources) l-Thyroxine Start: 07-20-2024 End: 05-24-2025 take 1 tablet by mouth once daily Levothyroxine (Synthroid) 25 mcg tablet Discontinued 25 ug PO daily 90 October 15, 2024 12:24am May 24, 2025 2:40pm hypothyroidism lidocaine viscous 2% 10 mL and maalox plus 30 mL (GI COCKTAIL) 40 mL solution (1 source) Start: 03-18-2019 End: 03-19-2019 lidocaine viscous 2% 10 mL and maalox plus 30 mL (GI COCKTAIL) 40 mL solution loratadine 10 mg oral tablet (19 sources) Start: 10-02-2024 End: 11-05-2024 take 1 tablet by mouth once daily Loratadine (Claritin) 10 mg tablet Discontinued 10 mg PO daily October 02, 2024 1:00am November 05, 2024 3:32pm LORazepam 1 mg oral tablet (20 sources) Benzodiazepine Start: 12-02-2023 End: 07-20-2024 Lorazepam (Ativan) 1 mg tablet Discontinued 1 mg PO ONCE 1 0 December 02, 2023 1:00am July 20, 2024 2:19pm take 30 minutes prior to procedure Magnesium (11 sources) Start: 04-19-2025 End: 05-24-2025 take 1 tablet by mouth once daily Magnesium 200 mg tablet Discontinued 200 mg PO DAILY April 19, 2025 12:00am May 24, 2025 2:40pm muscle spasm Start: 04-19-2025 take 1 tablet by claude th once daily Magnesium 200 mg tablet Active 200 mg PO DAILY April 19, 2025 12:00am muscle spasm Start: 04-19-2025 take 1 tablet by claude th once daily Magnesium 200 mg tablet Active 200 mg PO DAILY April 19, 2025 12:00am medroxyPROGESTERone acetate 5 mg oral tablet (19 sources) Progestin Start: 01-22-2024 End: 07-20-2024 take [...] 3:32pm promethazine hydrochloride 25 mg oral tablet (19 sources) Phenothiazine Start: 12-17-2024 End: 04-19-2025 take [...] Palpitations; Translations: [Palpitations] Onset: 12-01-2015 01-30-2016 Episodic Complications of surgical procedures or medical care (7 sources) Postoperative fever; Translations: [Postprocedural fever] Onset: 06-01-2025 05-24-2025 Episodic Contraceptive and procreative management (20 sources) Oral contraception; Translations: [Encounter for surveillance of contraceptive pills] Onset: 06-27-2018 Resolved: 09-28-2020 06-27-2018 Episodic Diabetes or abnormal glucose tolerance complicating [...] associated with anovulation] Onset: 04-20-2025 11-04-2023 Chronic Fever of unknown origin (1 source) Fever, unspecified; Translations: [Fever, unspecified] Onset: 06-01-2025 Episodic Fluid and electrolyte disorders (19 sources) Mild dehydration; Translations: [Dehydration] 11-18-2024 Episodic [...] @ 2 8 weeks Other complications of (20 sources) Group B Streptococcus carrier; Translations: [Streptococcus [...] from assisted reproductive technology, third trimester] Onset: 05-26-2025 Episodic Other complications of (1 source) Streptococcus B carrier state complicating ; Translations: [Streptococcus B carrier state complicating ] Onset: 05-26-2025 Episodic Other complications of (2 sources) Supervision [...] unspecified] Onset: 07-20-2024 Chronic Residual codes; unclassified (19 sources) Infertile 10-02-2024 Episodic Comment on above: [...] with limited medical history Residual codes; unclassified (10 sources) Past history of procedure; Translations: [Personal [...] Translations: [38 weeks gestation of ] Onset: 05-26-2025 Episodic Residual codes; unclassified (2 sources) 34 weeks gestation of ; Translations: [34 weeks gestation of ] Onset: 04-20-2025 Episodic Residual codes; unclassified (1 source) Personal history of other medical treatment; Translations: [Personal history of other medical treatment] Onset: 04-29-2025 Episodic Skin and subcutaneous tissue infections (13 sources) Abscess of skin and/or subcutaneous tissue; Translations: [Cutaneous abscess, unspecified] Onset: 06-01-2025 05-24-2025 Episodic Substance-related disorders (20 sources) Marijuana user; Translations: [Cannabis use, unspecified, uncomplicated] Onset: 11-05-2024 10-02-2024 Episodic Comment on above: Last use: May 2024; Pt informed of random tox screens Syncope (19 sources) Vasovagal syncope; Translations: [Syncope and collapse] 11-18-2024 Episodic Unclassified (5 sources) Patient encounter status; Translations: [Well adult exam] Onset: 12-09-2013 07-31-2018 Unclassified (1 source) Onset: 05-17-2021 05-17-2021 Unclassified (1 source) Infertile; Translations: [Infertility] 12-02-2023 Unclassified (1 source) Abscess of skin Unclassified (1 source) Soft tissue abscess Unclassified (1 source) Encounter for management of vacuum-assisted closure (VAC) of wound Unclassified (1 source) L02.91 - Cutaneous abscess, unspecified,Z46.89 - Encounter for fitting and adjustment of other specified devices Past or Other Problems Problem Classification Problem Date Documented Da te Episodic/Chronic Abdominal pain (18 sources) Upper abdominal pain; Translations: [Generalized abdominal pain] Onset: 08-01-2017 Resolved: 09-28-2020 07-31-2018 Episodic Biliary tract disease (12 sources) Polyp of gallbladder; Translations: [Cholesterolosis of gallbladder] Onset: 09-27-2017 Resolved: 09-27-2022 07-31-2018 Episodic Diseases of white blood cells (12 [...] aches] Episodic Residual codes; unclassified (1 source) 28 weeks gestation of ; Translations: [28 weeks gestation of ] Onset: 02-26-2025 Episodic Residual codes; unclassified (1 source) 8 weeks gestation of ; Translations: [8 weeks gestation of ] Onset: 10-09-2024 Episodic Results Test Name Value Interpretation Reference Range Facility Absolute lymphocyte countOrd ered By: Edel Diehl on 06-01-2025 Lymphocytes Auto (Unsp spec) [#/Vol] 2.13 10*3/uL 0.83-4.51 [facility] Absolute neutrophil countOrd ered By: Edel Diehl on 06-01-2025 Neutrophils (Bld) [#/Vol] 7.6 10*3/uL 2.0-7.7 [facility] Automated lymphocyte count a s percentage of total leukocytesOrdered By: Edel Clarosrico on 06-01-2025 Lymphocytes/100 WBC Auto (Unsp spec) 18.7 % Low 19-41 [facility] Basophil percentageOrdered B y: Edel Diehl on 06-01-2025 Basophils/100 WBC (Bld) 0.8 % 0-1 [facility] CBC W/Diff, Automatedon Absolute Lymph 2.13 X10 3/uL Normal 0.83-4.51 [facility] Comment on above: Performed By: #### L 100.0100 ####[facility] [address] [place], [address] Absolute Neut 7.6 X10 3/uL Normal 2.0-7.7 [facility] Comment on above: Performed By: #### L 100.0100 ####[facility] [address] [place], [address] Basophils/100 WBC (Bld) 0.8 % Normal 0-1 [facility] Comment on above: Performed By: #### L 100.0100 ####[facility] [address] [place], [address] Eosinophils/100 WBC (Bld) 3.9 % Normal 0-5 [facility] Comment on above: Performed By: #### L 100.0100 ####[facility] [address] [place], [address] Erythrocyte distribution width (RBC) [Ratio] 13.9 % Normal 11.6-14.6 [facility] Comment on above: Performed By: #### L 100.0100 ####[facility] [address] [place], [address] Hematocrit (Bld) [Volume fraction] 30.4 % Low 37-47 [facility] Comment on above: Performed By: #### L 100.0100 ####[facility] [address] [place], [address] Hemoglobin (Bld) [Mass/Vol] 9.7 g/dL Low 12.0-15.0 [facility] Comment on above: Performed By: #### L 100.0100 ####[facility] [address] [place], [address] IG% 4.300 High 0.0-0.9 [facility] Comment on above: Result Comment: IG% - Immature Granulocytes (promyelocytes, myelocytes andmetamyelocytes) > 1% indicates that a LEFT SHIFT is Present. Performed By: #### L 100.0100 ####[facility] [address] [place], [address] Lymphocytes/100 WBC (Bld) 18.7 % Low 19-41 [facility] Comment on above: Performed By: #### L 100.0100 ####[facility] [address] [place], [address] MCH (RBC) [Entitic mass] 28.5 pg Normal 27.0-32.0 [facility] Comment on above: Performed By: #### L 100.0100 ####[facility] [address] [place], [address] MCHC (RBC) [Mass/Vol] 31.9 g/dL Low 32-36 [facility] Comment on above: Performed By: #### L 100.0100 ####[facility] [address] [place], [address] MCV (RBC) [Entitic vol] 89.4 fL Normal 81-99 [facility] Comment on above: Performed By: #### L 100.0100 ####[facility] [address] [place], [address] Monocytes/100 WBC (Bld) 5.8 % Normal 0-10 [facility] Comment on above: Performed By: #### L 100.0100 ####[facility] [address] [place], [address] Neutrophils/100 WBC (Bld) 66.5 % Normal 47-70 [facility] Comment on above: Performed By: #### L 100.0100 ####[facility] [address] [place], [address] Nucleated RBC (Bld) [#/Vol] 0 10*3/uL Normal 0-5 [facility] Comment on above: Performed By: #### L 100.0100 ####[facility] [address] [place], [address] Platelet mean volume (Bld) [Entitic vol] 8.8 fL Normal 6.2-12.0 [facility] Comment on above: Performed By: #### L 100.0100 ####[facility] [address] [place], [address] Platelets (Bld) [#/Vol] 500 10*3/uL High 150-450 [facility] Comment on above: Performed By: #### L 100.0100 ####[facility] [address] [place], [address] RBC (Bld) [#/Vol] 3.40 10*6/uL Low 4.2-5.4 [facility] Comment on above: Performed By: #### L 100.0100 ####[facility] [address] [place], [address] RDW SD 45.6 fl High 35.1-43.9 [facility] Comment on above: Performed By: #### L 100.0100 ####[facility] [address] [place], [address] WBC (Bld) [#/Vol] 11.4 10*3/uL High 4.4-11.0 [facility] Comment on above: Performed By: #### L 100.0100 ####[facility] [address] [place] [place], [address] Eosinophil percentageOrdered By: Edel Diehl on 06-01-2025 Eosinophils/100 WBC (Bld) 3.9 % 0-5 [facility] Erythrocyte distribution wid th ratioOrdered By: Edel Diehl on 06-01-2025 Erythrocyte distribution width (RBC) [Ratio] 13.9 % 11.6-14.6 [facility] Erythrocyte distribution wid th standard deviationOrdered By: Edel Diehl on 06-01-2025 Erythrocyte distribution width (RBC) [Ratio] 45.6 fl High 35.1-43.9 [facility] Hematocrit Auto (Bld) [Volum e fraction]Ordered By: Edel Diehl on 06-01-2025 Hematocrit (Bld) [Volume fraction] 30.4 % Low 37-47 [facility] Hemoglobin measurementOrdere d By: Edel Diehl on 06-01-2025 Hemoglobin (Bld) [Mass/Vol] 9.7 g/dL Low 12.0-15.0 [facility] Immature granulocytes/100 WB C Auto (Bld)Ordered By: Edel Diehl on 06-01-2025 Immature granulocytes/100 WBC (Bld) 4.300 % High 0.0-0.9 [facility] Comment on above: IG% - Immature Granu locytes (promyelocytes, myelocytes and metamyelocytes) > 1% indicates that a LEFT SHIFT is Present. MCV (mean corpuscular volume ) determinationOrdered By: Edel Diehl on 06-01-2025 MCV (RBC) [Entitic vol] 89.4 fL 81-99 [facility] Mean corpuscular hemoglobin (MCH) determinationOrdered By: Edel Diehl on 06-01-2025 MCH (RBC) [Entitic mass] 28.5 pg 27.0-32.0 [facility] Mean corpuscular hemoglobin concentration (MCHC) determinationOrdered By: Edel Diehl on 06-01-2025 MCHC (RBC) [Mass/Vol] 31.9 g/dL Low 32-36 [facility] Mean platelet volume determi nationOrdered By: Edel Diehl on 06-01-2025 Platelet mean volume (Bld) [Entitic vol] 8.8 fL 6.2-12.0 [facility] Monocyte percentageOrdered B y: Edel Diehl on 06-01-2025 Monocytes/100 WBC (Bld) 5.8 % 0-10 [facility] Neutrophil percentageOrdered By: Edel Diehl on 06-01-2025 Neutrophils/100 WBC (Bld) 66.5 % 47-70 [facility] Nucleated red blood cell per centageOrdered By: Edel Diehl on 06-01-2025 Nucleated RBC/100 WBC (Bld) [Ratio] 0 % 0-5 [facility] Platelet countOrdered By: Mickey Diehl on 06-01-2025 Platelets (Bld) [#/Vol] 500 10*3/uL High 150-450 [facility] RBC Auto (Bld) [#/Vol]Ordere d By: Edel Diehl on 06-01-2025 RBC (Bld) [#/Vol] 3.40 10*6/uL Low 4.2-5.4 [facility] White blood cell (WBC) count Ordered By: Edel Diehl on 06-01-2025 WBC (Bld) [#/Vol] 11.4 10*3/uL High 4.4-11.0 [facility] Culture, Anaerobic Any Sourc tracy 05-31-2025 CUAN UNK UNK ABDOMINAL WALL ABSCESS, COLLECTED IN OR No anaerobic bacteria isolated. Normal [facility] Comment on above: Performed By: #### M 100.2000, M100.4001, M100.3000 ####[facility] [address] [place], [address] Culture, Blood (WB)on 2024 CUB Blood cultures x2, from two different sites No growth in 5 days. [facility] Comment on above: Performed By: #### M 200.1000 ####[facility] [address] [place], [address] Culture, Anaerobic Any Sourc tracy 05-29-2025 CUAN No anaerobic bacteria isolated. [facility] Comment on above: Performed By: #### M 100.2000, M100.4001, M100.2900 ####[facility] [address] [place], [address] Culture, Blood (WB)on 2024 CUB Normal [facility] Comment on above: Performed By: #### M 200.1000, M100.636 ####[facility] [address] [place], [address] Wound Cultureon 05-29-2025 WC Normal [facility] Comment on above: Performed By: #### M 100.2000, M100.4001, M100.3000 ####[facility] [address] [place], [address] Absolute lymphocyte countOrd ered By: Apple Lao on 05-28-2025 Lymphocytes Auto (Unsp spec) [#/Vol] 1.49 10*3/uL 0.83-4.51 [facility] Absolute neutrophil countOrd ered By: Apple Lao on 05-28-2025 Neutrophils (Bld) [#/Vol] 9.0 10*3/uL High 2.0-7.7 [facility] Anion gap in Serum or Plasma Ordered By: Apple Lao on 05-28-2025 Anion gap [Moles/Vol] 14 mmol/L 5-15 [facility] Automated lymphocyte count a s percentage of total leukocytesOrdered By: Apple Lao on 05-28-2025 Lymphocytes/100 WBC Auto (Unsp spec) 12.9 % Low 19-41 [facility] BC GPC IDon 05-28-2025 GPC ID Normal [facility] Comment on above: Performed By: #### M 200.1000, M100.636 ####[facility] [address] [place], [address] BUN/creatinine ratioOrdered By: Apple aLo on 05-28-2025 Urea nitrogen/Creatinine [Mass ratio] 10.0 mg/mg 10- [facility] Basic Metabolic Profile (BMP )on 05-28-2025 BUN/CRE 10.0 RATIO Normal 07-19 [facility] Comment on above: Performed By: #### L 500.2500, L100.0100 ####[facility] [address] [place], [address] Calcium [Mass/Vol] 8.4 mg/dL Normal 7.6-11.0 [facility] Comment on above: Performed By: #### L 500.2500, L100.0100 ####[facility] [address] [place], [address] Chloride [Moles/Vol] 109 mmol/L High 98-108 [facility] Comment on above: Performed By: #### L 500.2500, L100.0100 ####[facility] [address] [place], [address] CO2 [Moles/Vol] 17.8 mmol/L Low 21.0-32.0 [facility] Comment on above: Performed By: #### L 500.2500, L100.0100 ####[facility] [address] [place], [address] Creatinine [Mass/Vol] 1.02 mg/dL Normal 0.70-1.20 [facility] Comment on above: Performed By: #### L 500.2500, L100.0100 ####[facility] [address] [place], [address] ECRCL 93.45 ml/min Normal 50-250 [facility] Comment on above: Performed By: #### L 500.2500, L100.0100 ####[facility] [address] [place], [address] GAP 14 Normal 5-15 [facility] Comment on above: Performed By: #### L 500.2500, L100.0100 ####[facility] [address] [place], [address] GFR/1.73 sq M.predicted among non-blacks MDRD (S/P/Bld) [Vol rate/Area] 74 mL/min/{1.73_m2} Normal >60 [facility] Comment on above: Result Comment: mL/m in/1.73m2 CKD-EPI Creatinine Equation (2020) Performed By: #### L 500.2500, L100.0100 ####[facility] [address] [place], [address] Glucose [Mass/Vol] 89 mg/dL Normal 70-99 [facility] Comment on above: Performed By: #### L 500.2500, L100.0100 ####[facility] [address] [place], [address] Potassium [Moles/Vol] 3.3 mmol/L Normal 3.3-5.1 [facility] Comment on above: Performed By: #### L 500.2500, L100.0100 ####[facility] [address] [place], [address] Sodium [Moles/Vol] 141 mmol/L Normal 133-145 [facility] Comment on above: Performed By: #### L 500.2500, L100.0100 ####[facility] [address] [place], [address] Urea nitrogen [Mass/Vol] 10 mg/dL Normal 4-19 [facility] Comment on above: Performed By: #### L 500.2500, L100.0100 ####[facility] [address] [place], [address] Basophil percentageOrdered B y: Apple Lao on 05-28-2025 Basophils/100 WBC (Bld) 0.1 % 0-1 [facility] CBC W/Diff, Automatedon 05-01 Absolute Lymph 1.49 X10 3/uL Normal 0.83-4.51 [facility] Comment on above: Performed By: #### L 500.2500, L100.0100 ####[facility] [address] [place], [address] Absolute Neut 9.0 X10 3/uL High 2.0-7.7 [facility] Comment on above: Performed By: #### L 500.2500, L100.0100 ####[facility] [address] [place], [address] Basophils/100 WBC (Bld) 0.1 % Normal 0-1 [facility] Comment on above: Performed By: #### L 500.2500, L100.0100 ####[facility] [address] [place], [address] Eosinophils/100 WBC (Bld) 0.4 % Normal 0-5 [facility] Comment on above: Performed By: #### L 500.2500, L100.0100 ####[facility] [address] [place], [address] Erythrocyte distribution width (RBC) [Ratio] 14.1 % Normal 11.6-14.6 [facility] Comment on above: Performed By: #### L 500.2500, L100.0100 ####[facility] [address] [place], [address] Hematocrit (Bld) [Volume fraction] 24.1 % Low 37-47 [facility] Comment on above: Performed By: #### L 500.2500, L100.0100 ####[facility] [address] [place], [address] Hemoglobin (Bld) [Mass/Vol] 7.9 g/dL Low 12.0-15.0 [facility] Comment on above: Performed By: #### L 500.2500, L100.0100 ####[facility] [address] [place], [address] IG% 1.100 High 0.0-0.9 [facility] Comment on above: Result Comment: IG% - Immature Granulocytes (promyelocytes, myelocytes andmetamyelocytes) > 1% indicates that a LEFT SHIFT is Present. Performed By: #### L 500.2500, L100.0100 ####[facility] [address] [place], [address] Lymphocytes/100 WBC (Bld) 12.9 % Low 19-41 [facility] Comment on above: Performed By: #### L 500.2500, L100.0100 ####[facility] [address] [place], [address] MCH (RBC) [Entitic mass] 29.3 pg Normal 27.0-32.0 [facility] Comment on above: Performed By: #### L 500.2500, L100.0100 ####[facility] [address] [place], [address] MCHC (RBC) [Mass/Vol] 32.8 g/dL Normal 32-36 [facility] Comment on above: Performed By: #### L 500.2500, L100.0100 ####[facility] [address] [place], [address] MCV (RBC) [Entitic vol] 89.3 fL Normal 81-99 [facility] Comment on above: Performed By: #### L 500.2500, L100.0100 ####[facility] [address] [place], [address] Monocytes/100 WBC (Bld) 7.9 % Normal 0-10 [facility] Comment on above: Performed By: #### L 500.2500, L100.0100 ####[facility] [address] [place], [address] Neutrophils/100 WBC (Bld) 77.6 % High 47-70 [facility] Comment on above: Performed By: #### L 500.2500, L100.0100 ####[facility] [address] [place], [address] Nucleated RBC (Bld) [#/Vol] 0 10*3/uL Normal 0-5 [facility] Comment on above: Performed By: #### L 500.2500, L100.0100 ####[facility] [address] [place], [address] Platelet mean volume (Bld) [Entitic vol] 8.8 fL Normal 6.2-12.0 [facility] Comment on above: Performed By: #### L 500.2500, L100.0100 ####[facility] [address] [place], [address] Platelets (Bld) [#/Vol] 331 10*3/uL Normal 150-450 [facility] Comment on above: Performed By: #### L 500.2500, L100.0100 ####[facility] [address] [place], [address] RBC (Bld) [#/Vol] 2.70 10*6/uL Low 4.2-5.4 [facility] Comment on above: Performed By: #### L 500.2500, L100.0100 ####[facility] [address] [place], [address] RDW SD 45.9 fl High 35.1-43.9 [facility] Comment on above: Performed By: #### L 500.2500, L100.0100 ####[facility] [address] [place], [address] WBC (Bld) [#/Vol] 11.5 10*3/uL High 4.4-11.0 [facility] Comment on above: Performed By: #### L 500.2500, L100.0100 ####[facility] [address] [place], [address] Carbon dioxide, total [Moles /volume] in Central venous bloodOrdered By: Apple Lao on 05-28-2025 CO2 [Moles/Vol] 17.8 mmol/L Low 21.0-32.0 [facility] Chloride assayOrdered By: Elena Lao on 05-28-2025 Chloride [Moles/Vol] 109 mmol/L High 98-108 [facility] Electrocardiogram reportOrde red By: Vitor Olguin on 05-28-2025 EKG study [facility] [address] [place] [address] 12 Lead EKG 05/25/25 0732 MR#: [id number] Acct: [id number] Name: BARBY CABALLERO Rep #:[id number] : 1990 34 From: Vitor Olguin MD Attending Dr: Dr. Edel Bullock DO Status: ADM IN Ordering Dr: Edel Bullock DO D ate: 05/25/25 Location: [facility]3 Sex: F C Admitted: 05/24/25 Test Reason : PALP Blood Pressure : */* mmHG Vent. Rate : 118 BPM Atrial Rate : 118 BPM P-R Int : 126 ms QRS Dur : 74 ms QT Int : 310 ms P-R-T Axes : 56 22 -14 degrees QTcB Int : 434 ms Sinus tachycardia Otherwise normal ECG When compared with ECG of 24-May-2025 14:05, No significant change was found Confirmed by VITOR OLGUIN ([id number]), continuity editor RAEGAN WHITE ([id number]) on 05/28/2025 5:45:57 AM Referred By: JULIAN Confirmed By: VITOR OLGUIN 05/28/25 0546 Date _ Vitor Olguin MD CC: Dr. Steffen Eisenberg MD; Dr. Edel Bullock, DO ~ Signed [facility] Other Phone: Eosinophil percentageOrdered By: Apple Lao on 05-28-2025 Eosinophils/100 WBC (Bld) 0.4 % 0-5 [facility] Erythrocyte distribution wid th ratioOrdered By: Apple Lao on 05-28-2025 Erythrocyte distribution width (RBC) [Ratio] 14.1 % 11.6-14.6 [facility] Erythrocyte distribution wid th standard deviationOrdered By: Apple Lao on 05-28-2025 Erythrocyte distribution width (RBC) [Ratio] 45.9 fl High 35.1-43.9 [facility] Glomerular filtration rate ( GFR) estimation/1.73 sq m using serum, plasma, or whole bOrdered By: Apple Lao on 05-28-2025 GFR/1.73 sq M.predicted among non-blacks MDRD (S/P/Bld) [Vol rate/Area] 74 mL/min/{1.73_m2} >60 [facility] Comment on above: mL/min/1.73m2 CKD-EP I Creatinine Equation (2020) Gram Stainon 05-28-2025 GS UNK UNK ABDOMINAL WALL ABSCESS, COLLECTED IN OR Gram Stain 4+ White Blood Cells No Epithelial cells No organisms seen Normal [facility] Comment on above: Performed By: #### M 100.2000, M100.4001, M100.3000 ####[facility] [address] [place], [address] Hematocrit Auto (Bld) [Volum e fraction]Ordered By: Apple Lao on 05-28-2025 Hematocrit (Bld) [Volume fraction] 24.1 % Low 37-47 [facility] Hemoglobin measurementOrdere d By: Apple Lao on 05-28-2025 Hemoglobin (Bld) [Mass/Vol] 7.9 g/dL Low 12.0-15.0 [facility] Immature granulocytes/100 WB C Auto (Bld)Ordered By: Apple Lao on 05-28-2025 Immature granulocytes/100 WBC (Bld) 1.100 % High 0.0-0.9 [facility] Comment on above: IG% - Immature Granu locytes (promyelocytes, myelocytes and metamyelocytes) > 1% indicates that a LEFT SHIFT is Present. MCV (mean corpuscular volume ) determinationOrdered By: Apple Lao on 05-28-2025 MCV (RBC) [Entitic vol] 89.3 fL 81-99 [facility] Mean corpuscular hemoglobin (MCH) determinationOrdered By: Apple Lao on 05-28-2025 MCH (RBC) [Entitic mass] 29.3 pg 27.0-32.0 [facility] Mean corpuscular hemoglobin concentration (MCHC) determinationOrdered By: Apple Lao on 05-28-2025 MCHC (RBC) [Mass/Vol] 32.8 g/dL 32-36 [facility] Mean platelet volume determi nationOrdered By: Apple Lao on 05-28-2025 Platelet mean volume (Bld) [Entitic vol] 8.8 fL 6.2-12.0 [facility] Monocyte percentageOrdered B y: Apple Lao on 05-28-2025 Monocytes/100 WBC (Bld) 7.9 % 0-10 [facility] Neutrophil percentageOrdered By: Apple Lao on 05-28-2025 Neutrophils/100 WBC (Bld) 77.6 % High 47-70 [facility] Nucleated red blood cell per centageOrdered By: Apple Lao on 05-28-2025 Nucleated RBC/100 WBC (Bld) [Ratio] 0 % 0-5 [facility] Platelet countOrdered By: Elena Lao on 05-28-2025 Platelets (Bld) [#/Vol] 331 10*3/uL 150-450 [facility] Potassium measurement (mass/ volume)Ordered By: Apple Lao on 05-28-2025 Potassium (Unsp spec) [Mass/Vol] 3.3 mmol/L 3.3-5.1 [facility] RBC Auto (Bld) [#/Vol]Ordere d By: Apple Lao on 05-28-2025 RBC (Bld) [#/Vol] 2.70 10*6/uL Low 4.2-5.4 [facility] Serum creatinine measurement (mass/volume)Ordered By: Apple Lao on 05-28-2025 Creatinine [Mass/Vol] 1.02 mg/dL 0.70-1.20 [facility] Serum glucose measurement (m ass/volume)Ordered By: Apple Lao on 05-28-2025 Glucose [Mass/Vol] 89 mg/dL 70-99 [facility] Serum or plasma calcium kenisha urement (mass/volume)Ordered By: Apple Lao on 05-28-2025 Calcium [Mass/Vol] 8.4 mg/dL 7.6-11.0 [facility] Serum or plasma urea nitroge n measurement (mass/volume)Ordered By: Apple Lao on 05-28-2025 Urea nitrogen [Mass/Vol] 10 mg/dL 4-19 [facility] Sodium levelOrdered By: Frank Lao on 05-28-2025 Sodium [Moles/Vol] 141 mmol/L 133-145 [facility] White blood cell (WBC) count Ordered By: Apple Lao on 05-28-2025 WBC (Bld) [#/Vol] 11.5 10*3/uL High 4.4-11.0 [facility] Activated partial thrombopla stin time (aPTT) in platelet poor plasma by coagulation aOrdered By: Taz Andrews on 05-27-2025 aPTT Coag (PPP) [Time] 35.9 s 24.1-36.2 [facility] Anaerobic cultureOrdered By: Garrett Hernandez on 05-27-2025 Bacteria identified Anaer cx Nom (Unsp spec) No anaerobic bacteria isolated. [facility] Basic Metabolic Profile (BMP )on 05-27-2025 BUN/CRE 9.3 RATIO Low 10-20 [facility] Comment on above: Order Comment: Pre-o perative Performed By: #### L 100.0100, L500.2500, L300.3900, L300.4310 ####[facility] [address] [place], [address] Calcium [Mass/Vol] 8.2 mg/dL Normal 7.6-11.0 [facility] Comment on above: Order Comment: Pre-o perative Performed By: #### L 100.0100, L500.2500, L300.3900, L300.4310 ####[facility] [address] [place], [address] Chloride [Moles/Vol] 113 mmol/L High 98-108 [facility] Comment on above: Order Comment: Pre-o perative Performed By: #### L 100.0100, L500.2500, L300.3900, L300.4310 ####[facility] [address] [place], [address] CO2 [Moles/Vol] 18.5 mmol/L Low 21.0-32.0 [facility] Comment on above: Order Comment: Pre-o perative Performed By: #### L 100.0100, L500.2500, L300.3900, L300.4310 ####[facility] [address] [place], [address] Creatinine [Mass/Vol] 0.78 mg/dL Normal 0.70-1.20 [facility] Comment on above: Order Comment: Pre-o perative Performed By: #### L 100.0100, L500.2500, L300.3900, L300.4310 ####[facility] [address] [place], [address] ECRCL 122.21 ml/min Normal 50-250 [facility] Comment on above: Order Comment: Pre-o perative Performed By: #### L 100.0100, L500.2500, L300.3900, L300.4310 ####[facility] [address] [place], [address] GAP 12 Normal 5-15 [facility] Comment on above: Order Comment: Pre-o perative Performed By: #### L 100.0100, L500.2500, L300.3900, L300.4310 ####[facility] [address] [place], [address] GFR/1.73 sq M.predicted among non-blacks MDRD (S/P/Bld) [Vol rate/Area] 101 mL/min/{1.73_m2} Normal >60 [facility] Comment on above: Order Comment: Pre-o perative Result Comment: mL/m in/1.73m2 CKD-EPI Creatinine Equation (2020) Performed By: #### L 100.0100, L500.2500, L300.3900, L300.4310 ####[facility] [address] [place], [address] Glucose [Mass/Vol] 70 mg/dL Normal 70-99 [facility] Comment on above: Order Comment: Pre-o perative Performed By: #### L 100.0100, L500.2500, L300.3900, L300.4310 ####[facility] [address] [place], [address] Potassium [Moles/Vol] 3.3 mmol/L Normal 3.3-5.1 [facility] Comment on above: Order Comment: Pre-o perative Performed By: #### L 100.0100, L500.2500, L300.3900, L300.4310 ####[facility] [address] [place], [address] Sodium [Moles/Vol] 144 mmol/L Normal 133-145 [facility] Comment on above: Order Comment: Pre-o perative Performed By: #### L 100.0100, L500.2500, L300.3900, L300.4310 ####[facility] [address] [place], [address] Urea nitrogen [Mass/Vol] 7 mg/dL Normal 4-19 [facility] Comment on above: Order Comment: Pre-o perative Performed By: #### L 100.0100, L500.2500, L300.3900, L300.4310 ####[facility] [address] [place], [address] Body Fluid Culton 05-27-2025 BFC Normal [facility] Comment on above: Performed By: #### M 100.2000, M100.4001, M100.2900 ####[facility] [address] [place], [address] CBC W/Diff, Automatedon 05-01 Absolute Lymph 1.25 X10 3/uL Normal 0.83-4.51 [facility] Comment on above: Order Comment: Comme nts: Pre-operative Performed By: #### L 100.0100, L500.2500, L300.3900, L300.4310 ####[facility] [address] [place], [address] Absolute Neut 9.7 X10 3/uL High 2.0-7.7 [facility] Comment on above: Order Comment: Comme nts: Pre-operative Performed By: #### L 100.0100, L500.2500, L300.3900, L300.4310 ####[facility] [address] [place], [address] Basophils/100 WBC (Bld) 0.2 % Normal 0-1 [facility] Comment on above: Order Comment: Comme nts: Pre-operative Performed By: #### L 100.0100, L500.2500, L300.3900, L300.4310 ####[facility] [address] [place], [address] Eosinophils/100 WBC (Bld) 1.6 % Normal 0-5 [facility] Comment on above: Order Comment: Comme nts: Pre-operative Performed By: #### L 100.0100, L500.2500, L300.3900, L300.4310 ####[facility] [address] [place], [address] Erythrocyte distribution width (RBC) [Ratio] 13.8 % Normal 11.6-14.6 [facility] Comment on above: Order Comment: Comme nts: Pre-operative Performed By: #### L 100.0100, L500.2500, L300.3900, L300.4310 ####[facility] [address] [place], [address] Hematocrit (Bld) [Volume fraction] 24.8 % Low 37-47 [facility] Comment on above: Order Comment: Comme nts: Pre-operative Performed By: #### L 100.0100, L500.2500, L300.3900, L300.4310 ####[facility] [address] [place], [address] Hemoglobin (Bld) [Mass/Vol] 7.9 g/dL Low 12.0-15.0 [facility] Comment on above: Order Comment: Comme nts: Pre-operative Performed By: #### L 100.0100, L500.2500, L300.3900, L300.4310 ####[facility] [address] [place], [address] IG% 0.700 Normal 0.0-0.9 [facility] Comment on above: Order Comment: Comme nts: Pre-operative Result Comment: IG% - Immature Granulocytes (promyelocytes, myelocytes andmetamyelocytes) > 1% indicates that a LEFT SHIFT is Present. Performed By: #### L 100.0100, L500.2500, L300.3900, L300.4310 ####[facility] [address] [place], [address] Lymphocytes/100 WBC (Bld) 10.3 % Low 19-41 [facility] Comment on above: Order Comment: Comme nts: Pre-operative Performed By: #### L 100.0100, L500.2500, L300.3900, L300.4310 ####[facility] [address] [place], [address] MCH (RBC) [Entitic mass] 28.3 pg Normal 27.0-32.0 [facility] Comment on above: Order Comment: Comme nts: Pre-operative Performed By: #### L 100.0100, L500.2500, L300.3900, L300.4310 ####[facility] [address] [place], [address] MCHC (RBC) [Mass/Vol] 31.9 g/dL Low 32-36 [facility] Comment on above: Order Comment: Comme nts: Pre-operative Performed By: #### L 100.0100, L500.2500, L300.3900, L300.4310 ####[facility] [address] [place], [address] MCV (RBC) [Entitic vol] 88.9 fL Normal 81-99 [facility] Comment on above: Order Comment: Comme nts: Pre-operative Performed By: #### L 100.0100, L500.2500, L300.3900, L300.4310 ####[facility] [address] [place], [address] Monocytes/100 WBC (Bld) 6.9 % Normal 0-10 [facility] Comment on above: Order Comment: Comme nts: Pre-operative Performed By: #### L 100.0100, L500.2500, L300.3900, L300.4310 ####[facility] [address] [place], [address] Neutrophils/100 WBC (Bld) 80.3 % High 47-70 [facility] Comment on above: Order Comment: Comme nts: Pre-operative Performed By: #### L 100.0100, L500.2500, L300.3900, L300.4310 ####[facility] [address] [place], [address] Nucleated RBC (Bld) [#/Vol] 0 10*3/uL Normal 0-5 [facility] Comment on above: Order Comment: Comme nts: Pre-operative Performed By: #### L 100.0100, L500.2500, L300.3900, L300.4310 ####[facility] [address] [place], [address] Platelet mean volume (Bld) [Entitic vol] 8.7 fL Normal 6.2-12.0 [facility] Comment on above: Order Comment: Comme nts: Pre-operative Performed By: #### L 100.0100, L500.2500, L300.3900, L300.4310 ####[facility] [address] [place], [address] Platelets (Bld) [#/Vol] 363 10*3/uL Normal 150-450 [facility] Comment on above: Order Comment: Comme nts: Pre-operative Performed By: #### L 100.0100, L500.2500, L300.3900, L300.4310 ####[facility] [address] [place], [address] RBC (Bld) [#/Vol] 2.79 10*6/uL Low 4.2-5.4 [facility] Comment on above: Order Comment: Comme nts: Pre-operative Performed By: #### L 100.0100, L500.2500, L300.3900, L300.4310 ####[facility] [address] [place], [address] RDW SD 45.1 fl High 35.1-43.9 [facility] Comment on above: Order Comment: Comme nts: Pre-operative Performed By: #### L 100.0100, L500.2500, L300.3900, L300.4310 ####[facility] [address] [place], [address] WBC (Bld) [#/Vol] 12.1 10*3/uL High 4.4-11.0 [facility] Comment on above: Order Comment: Comme nts: Pre-operative Performed By: #### L 100.0100, L500.2500, L300.3900, L300.4310 ####[facility] [address] [place], [place], [id number] Consultation - Infectious Dx on 05-27-2025 Consultation - Infectious Dx Normal [facility] Consultation - Surgicalon Consultation - Surgical Normal [facility] Gram stainOrdered By: Garrett Hernandez on 05-27-2025 Microscopic observation Gram stain Nom (Unsp spec) [facility] International normalized rat io (INR) calculationOrdered By: Taz Andrews on 05-27-2025 INR Coag (Bld) [Relative time] 1.1 {INR} [facility] MR/POSTOP.ANEon 05-27-2025 MR/POSTOP.ANE Normal [facility] MR/[id number] 05-27-2025 MR/POSTOPAN2 Normal [facility] Operative Reporton Operative Report Normal [facility] Partial Thromboplast Timeon 05-27-2025 aPTT Coag (Bld) [Time] 35.9 s Normal 24.1-36.2 [facility] Comment on above: Order Comment: Comme nts: Pre-operative Performed By: #### L 100.0100, L500.2500, L300.3900, L300.4310 ####[facility] [address] [place], [address] Prothrombin Time w/INRon INR Coag (PPP) [Relative time] 1.1 {INR} Normal [facility] Comment on above: Order Comment: Comme nts: Pre-operative Performed By: #### L 100.0100, L500.2500, L300.3900, L300.4310 ####[facility] [address] [place], [address] PT Coag (PPP) [Time] 14.3 s Normal 11.7-14.9 [facility] Comment on above: Order Comment: Comme nts: Pre-operative Performed By: #### L 100.0100, L500.2500, L300.3900, L300.4310 ####[facility] [address] [place], [address] Prothrombin timeOrdered By: Taz Andrews on 05-27-2025 PT Coag (PPP) [Time] 14.3 s 11.7-14.9 [facility] Routine wound cultureOrdered By: Garrett Hernandez on 05-27-2025 Microbial culture, routine Morganella morganii sp morgani Abnormal [facility] Abdomen/Pelvis without Conto n 05-26-2025 Abdomen/Pelvis without Cont Normal [facility] Bilirubin, totalOrdered By: Edel Diehl on 05-26-2025 Bilirubin [Mass/Vol] 0.49 mg/dL 0.00-1.30 [facility] Blood cultureOrdered By: Rachel Diehl on 05-26-2025 Bacteria identified Cx Nom (Bld) Negative Abnormal [facility] CBC W/Diff, Automatedon 05-01 Absolute Lymph 1.16 X10 3/uL Normal 0.83-4.51 [facility] Comment on above: Performed By: #### L 503.6005, L100.0100 ####[facility] [address] [place], [address] Absolute Neut 12.4 X10 3/uL High 2.0-7.7 [facility] Comment on above: Performed By: #### L 503.6005, L100.0100 ####[facility] [address] [place], [address] Basophils/100 WBC (Bld) 0.2 % Normal 0-1 [facility] Comment on above: Performed By: #### L 503.6005, L100.0100 ####[facility] [address] [place], [address] Eosinophils/100 WBC (Bld) 0.8 % Normal 0-5 [facility] Comment on above: Performed By: #### L 503.6005, L100.0100 ####[facility] [address] [place], [address] Erythrocyte distribution width (RBC) [Ratio] 13.7 % Normal 11.6-14.6 [facility] Comment on above: Performed By: #### L 503.6005, L100.0100 ####[facility] [address] [place], [address] Hematocrit (Bld) [Volume fraction] 29.4 % Low 37-47 [facility] Comment on above: Performed By: #### L 503.6005, L100.0100 ####[facility] [address] [place], [address] Hemoglobin (Bld) [Mass/Vol] 9.5 g/dL Low 12.0-15.0 [facility] Comment on above: Performed By: #### L 503.6005, L100.0100 ####[facility] [address] [place], [address] IG% 0.400 Normal 0.0-0.9 [facility] Comment on above: Result Comment: IG% - Immature Granulocytes (promyelocytes, myelocytes andmetamyelocytes) > 1% indicates that a LEFT SHIFT is Present. Performed By: #### L 503.6005, L100.0100 ####[facility] [address] [place], [address] Lymphocytes/100 WBC (Bld) 7.9 % Low 19-41 [facility] Comment on above: Performed By: #### L 503.6005, L100.0100 ####[facility] [address] [place], [address] MCH (RBC) [Entitic mass] 28.6 pg Normal 27.0-32.0 [facility] Comment on above: Performed By: #### L 503.6005, L100.0100 ####[facility] [address] [place], [address] MCHC (RBC) [Mass/Vol] 32.3 g/dL Normal 32-36 [facility] Comment on above: Performed By: #### L 503.6005, L100.0100 ####[facility] [address] [place], [address] MCV (RBC) [Entitic vol] 88.6 fL Normal 81-99 [facility] Comment on above: Performed By: #### L 503.6005, L100.0100 ####[facility] [address] [place], [address] Monocytes/100 WBC (Bld) 6.1 % Normal 0-10 [facility] Comment on above: Performed By: #### L 503.6005, L100.0100 ####[facility] [address] [place], [address] Neutrophils/100 WBC (Bld) 84.6 % High 47-70 [facility] Comment on above: Performed By: #### L 503.6005, L100.0100 ####[facility] [address] [place], [address] Nucleated RBC (Bld) [#/Vol] 0 10*3/uL Normal 0-5 [facility] Comment on above: Performed By: #### L 503.6005, L100.0100 ####[facility] [address] [place], [address] Platelet mean volume (Bld) [Entitic vol] 8.5 fL Normal 6.2-12.0 [facility] Comment on above: Performed By: #### L 503.6005, L100.0100 ####[facility] [address] [place], [address] Platelets (Bld) [#/Vol] 397 10*3/uL Normal 150-450 [facility] Comment on above: Performed By: #### L 503.6005, L100.0100 ####[facility] [address] [place], [address] RBC (Bld) [#/Vol] 3.32 10*6/uL Low 4.2-5.4 [facility] Comment on above: Performed By: #### L 503.6005, L100.0100 ####[facility] [address] [place], [address] RDW SD 44.6 fl High 35.1-43.9 [facility] Comment on above: Performed By: #### L 503.6005, L100.0100 ####[facility] [address] [place], [address] WBC (Bld) [#/Vol] 14.7 10*3/uL High 4.4-11.0 [facility] Comment on above: Performed By: #### L 503.6005, L100.0100 ####[facility] [address] [place], [address] Absolute Neut Normal 2.0-7.7 [facility] Comment on above: Result Comment: Canc elled via OM: MD Ordered Performed By: #### L 100.0100 ####[facility] [address] [place], [address] HCT Normal 37-47 [facility] Comment on above: Result Comment: Canc elled via OM: MD Ordered Performed By: #### L 100.0100 ####[facility] [address] [place], [address] HGB Normal 12.0-15.0 [facility] Comment on above: Result Comment: Canc elled via OM: MD Ordered Performed By: #### L 100.0100 ####[facility] [address] [place], [address] MCH Normal 27.0-32.0 [facility] Comment on above: Result Comment: Canc elled via OM: MD Ordered Performed By: #### L 100.0100 ####[facility] [address] [place], [address] MCHC Normal 32-36 [facility] Comment on above: Result Comment: Canc elled via OM: MD Ordered Performed By: #### L 100.0100 ####[facility] [address] [place], [address] MCV Normal 81-99 [facility] Comment on above: Result Comment: Canc elled via OM: MD Ordered Performed By: #### L 100.0100 ####[facility] [address] [place], [address] NEUT% Normal 47-70 [facility] Comment on above: Result Comment: Canc elled via OM: MD Ordered Performed By: #### L 100.0100 ####[facility] [address] [place], [address] PLT Normal 150-450 [facility] Comment on above: Result Comment: Canc elled via OM: MD Ordered Performed By: #### L 100.0100 ####[facility] [address] [place], [address] RBC Normal 4.2-5.4 [facility] Comment on above: Result Comment: Canc elled via OM: MD Ordered Performed By: #### L 100.0100 ####[facility] [address] [place], [address] RDW CV Normal 11.6-14.6 [facility] Comment on above: Result Comment: Canc elled via OM: MD Ordered Performed By: #### L 100.0100 ####[facility] [address] [place], [address] RDW SD Normal 35.1-43.9 [facility] Comment on above: Result Comment: Canc elled via OM: MD Ordered Performed By: #### L 100.0100 ####[facility] [address] [place], [address] WBC Normal 4.4-11.0 [facility] Comment on above: Result Comment: Canc elled via OM: MD Ordered Performed By: #### L 100.0100 ####[facility] [address] [place], [address] Absolute Lymph 1.52 X10 3/uL Normal 0.83-4.51 [facility] Comment on above: Performed By: #### L 100.0100, L500.4050 ####[facility] [address] [place], [address] Absolute Neut 11.4 X10 3/uL High 2.0-7.7 [facility] Comment on above: Performed By: #### L 100.0100, L500.4050 ####[facility] [address] [place], [address] Basophils/100 WBC (Bld) 0.2 % Normal 0-1 [facility] Comment on above: Performed By: #### L 100.0100, L500.4050 ####[facility] [address] [place], [address] Eosinophils/100 WBC (Bld) 1.3 % Normal 0-5 [facility] Comment on above: Performed By: #### L 100.0100, L500.4050 ####[facility] [address] [place], [address] Erythrocyte distribution width (RBC) [Ratio] 13.8 % Normal 11.6-14.6 [facility] Comment on above: Performed By: #### L 100.0100, L500.4050 ####[facility] [address] [place], [address] Hematocrit (Bld) [Volume fraction] 26.0 % Low 37-47 [facility] Comment on above: Performed By: #### L 100.0100, L500.4050 ####[facility] [address] [place], [address] Hemoglobin (Bld) [Mass/Vol] 8.6 g/dL Low 12.0-15.0 [facility] Comment on above: Performed By: #### L 100.0100, L500.4050 ####[facility] [address] [place], [address] IG% 0.600 Normal 0.0-0.9 [facility] Comment on above: Result Comment: IG% - Immature Granulocytes (promyelocytes, myelocytes andmetamyelocytes) > 1% indicates that a LEFT SHIFT is Present. Performed By: #### L 100.0100, L500.4050 ####[facility] [address] [place], [address] Lymphocytes/100 WBC (Bld) 10.7 % Low 19-41 [facility] Comment on above: Performed By: #### L 100.0100, L500.4050 ####[facility] [address] [place], [address] MCH (RBC) [Entitic mass] 29.4 pg Normal 27.0-32.0 [facility] Comment on above: Performed By: #### L 100.0100, L500.4050 ####[facility] [address] [place], [address] MCHC (RBC) [Mass/Vol] 33.1 g/dL Normal 32-36 [facility] Comment on above: Performed By: #### L 100.0100, L500.4050 ####[facility] [address] [place], [address] MCV (RBC) [Entitic vol] 88.7 fL Normal 81-99 [facility] Comment on above: Performed By: #### L 100.0100, L500.4050 ####[facility] [address] [place], [address] Monocytes/100 WBC (Bld) 7.0 % Normal 0-10 [facility] Comment on above: Performed By: #### L 100.0100, L500.4050 ####[facility] [address] [place], [address] Neutrophils/100 WBC (Bld) 80.2 % High 47-70 [facility] Comment on above: Performed By: #### L 100.0100, L500.4050 ####[facility] [address] [place], [address] Nucleated RBC (Bld) [#/Vol] 0 10*3/uL Normal 0-5 [facility] Comment on above: Performed By: #### L 100.0100, L500.4050 ####[facility] [address] [place], [address] Platelet mean volume (Bld) [Entitic vol] 8.5 fL Normal 6.2-12.0 [facility] Comment on above: Performed By: #### L 100.0100, L500.4050 ####[facility] [address] [place], [address] Platelets (Bld) [#/Vol] 324 10*3/uL Normal 150-450 [facility] Comment on above: Performed By: #### L 100.0100, L500.4050 ####[facility] [address] [place], [address] RBC (Bld) [#/Vol] 2.93 10*6/uL Low 4.2-5.4 [facility] Comment on above: Performed By: #### L 100.0100, L500.4050 ####[facility] [address] [place], [address] RDW SD 45.1 fl High 35.1-43.9 [facility] Comment on above: Performed By: #### L 100.0100, L500.4050 ####[facility] [address] [place], [address] WBC (Bld) [#/Vol] 14.2 10*3/uL High 4.4-11.0 [facility] Comment on above: Performed By: #### L 100.0100, L500.4050 ####[facility] [address] [place], [address] Absolute Neut Normal 2.0-7.7 [facility] Comment on above: Result Comment: DUPL ICATE SEE H229 Performed By: #### L 100.0100 ####[facility] [address] [place], [address] HCT Normal 37-47 [facility] Comment on above: Result Comment: DUPL ICATE SEE H229 Performed By: #### L 100.0100 ####[facility] [address] [place], [address] HGB Normal 12.0-15.0 [facility] Comment on above: Result Comment: DUPL ICATE SEE H229 Performed By: #### L 100.0100 ####[facility] [address] [place], [address] MCH Normal 27.0-32.0 [facility] Comment on above: Result Comment: DUPL ICATE SEE H229 Performed By: #### L 100.0100 ####[facility] [address] [place], [address] MCHC Normal 32-36 [facility] Comment on above: Result Comment: DUPL ICATE SEE H229 Performed By: #### L 100.0100 ####[facility] [address] [place], [address] MCV Normal 81-99 [facility] Comment on above: Result Comment: DUPL ICATE SEE H229 Performed By: #### L 100.0100 ####[facility] [address] [place], [address] NEUT% Normal 47-70 [facility] Comment on above: Result Comment: DUPL ICATE SEE H229 Performed By: #### L 100.0100 ####[facility] [address] [place], [address] PLT Normal 150-450 [facility] Comment on above: Result Comment: DUPL ICATE SEE H229 Performed By: #### L 100.0100 ####[facility] [address] [place], [address] RBC Normal 4.2-5.4 [facility] Comment on above: Result Comment: DUPL ICATE SEE H229 Performed By: #### L 100.0100 ####[facility] [address] [place], [address] RDW CV Normal 11.6-14.6 [facility] Comment on above: Result Comment: DUPL ICATE SEE H229 Performed By: #### L 100.0100 ####[facility] [address] [place], [address] RDW SD Normal 35.1-43.9 [facility] Comment on above: Result Comment: DUPL ICATE SEE H229 Performed By: #### L 100.0100 ####[facility] [address] [place], [address] WBC Normal 4.4-11.0 [facility] Comment on above: Result Comment: DUPL ICATE SEE H229 Performed By: #### L 100.0100 ####[facility] [address] [place], [address] Comprehensive Metabolic Prof laon 05-26-2025 Albumin [Mass/Vol] 2.9 g/dL Low 3.5-5.0 [facility] Comment on above: Performed By: #### L 100.0100, L500.4050 ####[facility] [address] [place], [address] Albumin/Globulin [Mass ratio] 1.2 {ratio} Normal 0.9-2.4 [facility] Comment on above: Performed By: #### L 100.0100, L500.4050 ####[facility] [address] [place], [address] ALK PHOS 98 U/L Normal 35-104 [facility] Comment on above: Performed By: #### L 100.0100, L500.4050 ####[facility] [address] [place], [address] ALT [Catalytic activity/Vol] 21 U/L Normal <=34 [facility] Comment on above: Performed By: #### L 100.0100, L500.4050 ####[facility] [address] [place], [address] AST [Catalytic activity/Vol] 21 U/L Normal <=31 [facility] Comment on above: Performed By: #### L 100.0100, L500.4050 ####[facility] [address] [place], [address] Bilirubin [Mass/Vol] 0.49 mg/dL Normal 0.00-1.30 [facility] Comment on above: Performed By: #### L 100.0100, L500.4050 ####[facility] [address] [place], [address] BUN/CRE 17.1 RATIO Normal 10-20 [facility] Comment on above: Performed By: #### L 100.0100, L500.4050 ####[facility] [address] [place], [address] Calcium [Mass/Vol] 8.1 mg/dL Normal 7.6-11.0 [facility] Comment on above: Performed By: #### L 100.0100, L500.4050 ####[facility] [address] [place], [address] Chloride [Moles/Vol] 111 mmol/L High 98-108 [facility] Comment on above: Performed By: #### L 100.0100, L500.4050 ####[facility] [address] [place], [address] CO2 [Moles/Vol] 17.5 mmol/L Low 21.0-32.0 [facility] Comment on above: Performed By: #### L 100.0100, L500.4050 ####[facility] [address] [place], [address] Creatinine [Mass/Vol] 0.49 mg/dL Low 0.70-1.20 [facility] Comment on above: Performed By: #### L 100.0100, L500.4050 ####[facility] [address] [place], [address] ECRCL 194.54 ml/min Normal 50-250 [facility] Comment on above: Performed By: #### L 100.0100, L500.4050 ####[facility] [address] [place], [address] GAP 11 Normal 5-15 [facility] Comment on above: Performed By: #### L 100.0100, L500.4050 ####[facility] [address] [place], [address] GFR/1.73 sq M.predicted among non-blacks MDRD (S/P/Bld) [Vol rate/Area] 126 mL/min/{1.73_m2} Normal >60 [facility] Comment on above: Result Comment: mL/m in/1.73m2 CKD-EPI Creatinine Equation (2020) Performed By: #### L 100.0100, L500.4050 ####[facility] [address] [place], [address] Globulin (S) [Mass/Vol] 2.4 g/dL Normal 2.2-4.2 [facility] Comment on above: Performed By: #### L 100.0100, L500.4050 ####[facility] [address] [place], [address] Glucose [Mass/Vol] 67 mg/dL Low 70-99 [facility] Comment on above: Performed By: #### L 100.0100, L500.4050 ####[facility] [address] [place], [address] Potassium [Moles/Vol] 3.2 mmol/L Low 3.3-5.1 [facility] Comment on above: Performed By: #### L 100.0100, L500.4050 ####[facility] [address] [place], [address] Sodium [Moles/Vol] 139 mmol/L Normal 133-145 [facility] Comment on above: Performed By: #### L 100.0100, L500.4050 ####[facility] [address] [place], [address] T PROT 5.3 g/dL Low 5.9-8.4 [facility] Comment on above: Performed By: #### L 100.0100, L500.4050 ####[facility] [address] [place], [address] Urea nitrogen [Mass/Vol] 8 mg/dL Normal 4-19 [facility] Comment on above: Performed By: #### L 100.0100, L500.4050 ####[facility] [address] [place], [address] Electrocardiogram reportOrde red By: Vitor Olguin on 05-26-2025 EKG study [facility] [address] [place] [address] 12 Lead EKG 05/24/25 1405 MR#: [id number] Acct: [id number] Name: BARBY CABALLERO Rep #:[id number] : 1990 34 From: Vitor Olguin MD Attending Dr: Dr. Edel Bullock DO Status: ADM IN Ordering Dr: Pee Sargent DO Date: 05/24/25 Location: [facility] [place] Sex: F C Admitted: 05/24/25 Test Reason : HIGH HR Blood Pressure : */* mmHG Vent. Rate : 147 BPM Atrial Rate : 147 BPM P-R Int : 118 ms QRS Dur : 66 ms QT Int : 282 ms P-R-T Axes : 78 53 -18 degrees QTcB Int : 441 ms Critical Test Result: High HR Sinus tachycardia Nonspecific ST abnormality Abnormal QRS-T angle, consider primary T wave abnormality Abnormal ECG When compared with ECG of 10-Nov-2024 20:35, No significant change was found Confirmed by VITOR OLGUIN ([id number]), continuity editor DAYNE HOGAN ([id number]) on 05/26/2025 1:58:15 PM Referred By: Confirmed By: VITOR OLGUIN 05/26/25 1358 Date _ Vitor Olguin MD CC: Dr. Steffen Eisenberg MD; Dr. Pee Sargent DO; Dr. Edel Bullock DO~ Signed [facility] Other Phone: Laboratory - Chemistry and C hemistry - challengeOrdered By: Edel Diehl on 05-26-2025 AST [Catalytic activity/Vol] 21 U/L <32 [facility] Lactic Acidon 05-26-2025 Lactate [Moles/Vol] 1.3 mmol/L Normal 0.0-2.0 [facility] Comment on above: Order Comment: Y Performed By: #### L 503.6005, L100.0100 ####[facility] [address] [place], [place], [address] Lactic acid measurementOrder ed By: Edel Diehl on 05-26-2025 Lactate [Moles/Vol] 1.3 mmol/L 0.0-2.0 [facility] Organism identificationOrder ed By: Edel Diehl on 05-26-2025 Microorganism identified Cx Nom (Unsp spec) Negative Abnormal [facility] Serum globulin measurementOr dered By: Edel Diehl on 05-26-2025 Globulin (S) [Mass/Vol] 2.4 g/dL 2.2-4.2 [facility] Serum or plasma alanine jung otransferase (ALT) measurementOrdered By: Edel Diehl on 05-26-2025 ALT [Catalytic activity/Vol] 21 U/L <35 [facility] Serum or plasma albumin kenisha urement (mass/volume)Ordered By: Edel Diehl on 05-26-2025 Albumin [Mass/Vol] 2.9 g/dL Low 3.5-5.0 [facility] Serum or plasma albumin/glob ulin mass ratioOrdered By: Edel Diehl on 05-26-2025 Albumin/Globulin [Mass ratio] 1.2 {ratio} 0.9-2.4 [facility] Serum or plasma alkaline ct sphatase measurementOrdered By: Edel Diehl on 05-26-2025 ALP [Catalytic activity/Vol] 98 U/L 35-104 [facility] Total proteinOrdered By: Rachel Diehl on 05-26-2025 Protein [Mass/Vol] 5.3 g/dL Low 5.9-8.4 [facility] 12 Lead EKGon 05-25-2025 12 Lead EKG Normal [facility] Anaerobic cultureOrdered By: Edel Diehl on 05-25-2025 Bacteria identified Anaer cx Nom (Unsp spec) No anaerobic bacteria isolated. [facility] Biopsy/Inj or Needle Placeme nton 05-25-2025 Biopsy/Inj or Needle Placement Normal [facility] Body fluid cultureOrdered By : Edel Diehl on 05-25-2025 Microbial culture, body fluid Morganella morganii sp morgani Abnormal [facility] CBC W/Diff, Automatedon 05-01 Absolute Lymph 1.45 X10 3/uL Normal 0.83-4.51 [facility] Comment on above: Performed By: #### L 500.4050, L100.0100, L300.3900 ####[facility] [address] [place], [address] Absolute Neut 15.9 X10 3/uL High 2.0-7.7 [facility] Comment on above: Performed By: #### L 500.4050, L100.0100, L300.3900 ####[facility] [address] [place], [address] Basophils/100 WBC (Bld) 0.3 % Normal 0-1 [facility] Comment on above: Performed By: #### L 500.4050, L100.0100, L300.3900 ####[facility] [address] [place], [address] Eosinophils/100 WBC (Bld) 0.1 % Normal 0-5 [facility] Comment on above: Performed By: #### L 500.4050, L100.0100, L300.3900 ####[facility] [address] [place], [address] Erythrocyte distribution width (RBC) [Ratio] 13.5 % Normal 11.6-14.6 [facility] Comment on above: Performed By: #### L 500.4050, L100.0100, L300.3900 ####[facility] [address] [place], [address] Hematocrit (Bld) [Volume fraction] 26.7 % Low 37-47 [facility] Comment on above: Performed By: #### L 500.4050, L100.0100, L300.3900 ####[facility] [address] [place], [address] Hemoglobin (Bld) [Mass/Vol] 8.9 g/dL Low 12.0-15.0 [facility] Comment on above: Performed By: #### L 500.4050, L100.0100, L300.3900 ####[facility] [address] [place], [address] IG% 0.700 Normal 0.0-0.9 [facility] Comment on above: Result Comment: IG% - Immature Granulocytes (promyelocytes, myelocytes andmetamyelocytes) > 1% indicates that a LEFT SHIFT is Present. Performed By: #### L 500.4050, L100.0100, L300.3900 ####[facility] [address] [place], [address] Lymphocytes/100 WBC (Bld) 7.7 % Low 19-41 [facility] Comment on above: Performed By: #### L 500.4050, L100.0100, L300.3900 ####[facility] [address] [place], [address] MCH (RBC) [Entitic mass] 29.5 pg Normal 27.0-32.0 [facility] Comment on above: Performed By: #### L 500.4050, L100.0100, L300.3900 ####[facility] [address] [place], [address] MCHC (RBC) [Mass/Vol] 33.3 g/dL Normal 32-36 [facility] Comment on above: Performed By: #### L 500.4050, L100.0100, L300.3900 ####[facility] [address] [place], [address] MCV (RBC) [Entitic vol] 88.4 fL Normal 81-99 [facility] Comment on above: Performed By: #### L 500.4050, L100.0100, L300.3900 ####[facility] [address] [place], [address] Monocytes/100 WBC (Bld) 6.5 % Normal 0-10 [facility] Comment on above: Performed By: #### L 500.4050, L100.0100, L300.3900 ####[facility] [address] [place], [address] Neutrophils/100 WBC (Bld) 84.7 % High 47-70 [facility] Comment on above: Performed By: #### L 500.4050, L100.0100, L300.3900 ####[facility] [address] [place], [address] Nucleated RBC (Bld) [#/Vol] 0 10*3/uL Normal 0-5 [facility] Comment on above: Performed By: #### L 500.4050, L100.0100, L300.3900 ####[facility] [address] [place], [address] Platelet mean volume (Bld) [Entitic vol] 8.2 fL Normal 6.2-12.0 [facility] Comment on above: Performed By: #### L 500.4050, L100.0100, L300.3900 ####[facility] [address] [place], [address] Platelets (Bld) [#/Vol] 343 10*3/uL Normal 150-450 [facility] Comment on above: Performed By: #### L 500.4050, L100.0100, L300.3900 ####[facility] [address] [place], [address] RBC (Bld) [#/Vol] 3.02 10*6/uL Low 4.2-5.4 [facility] Comment on above: Performed By: #### L 500.4050, L100.0100, L300.3900 ####[facility] [address] [place], [address] RDW SD 43.8 fl Normal 35.1-43.9 [facility] Comment on above: Performed By: #### L 500.4050, L100.0100, L300.3900 ####[facility] [address] [place], [address] WBC (Bld) [#/Vol] 18.8 10*3/uL High 4.4-11.0 [facility] Comment on above: Performed By: #### L 500.4050, L100.0100, L300.3900 ####[facility] [address] [place], [address] Comprehensive Metabolic Prof [facility] 05-25-2025 Albumin [Mass/Vol] 3.2 g/dL Low 3.5-5.0 [facility] Comment on above: Performed By: #### L 500.4050, L100.0100, L300.3900 ####[facility] [address] [place], [address] Albumin/Globulin [Mass ratio] 1.4 {ratio} Normal 0.9-2.4 [facility] Comment on above: Performed By: #### L 500.4050, L100.0100, L300.3900 ####[facility] [address] [place], [address] ALK PHOS 90 U/L Normal 35-104 [facility] Comment on above: Performed By: #### L 500.4050, L100.0100, L300.3900 ####[facility] [address] [place], [address] ALT [Catalytic activity/Vol] 22 U/L Normal <=34 [facility] Comment on above: Performed By: #### L 500.4050, L100.0100, L300.3900 ####[facility] [address] [place], [address] AST [Catalytic activity/Vol] 22 U/L Normal <=31 [facility] Comment on above: Performed By: #### L 500.4050, L100.0100, L300.3900 ####[facility] [address] [place], [address] Bilirubin [Mass/Vol] 0.66 mg/dL Normal 0.00-1.30 [facility] Comment on above: Performed By: #### L 500.4050, L100.0100, L300.3900 ####[facility] [address] [place], [address] BUN/CRE 16.4 RATIO Normal 10-20 [facility] Comment on above: Performed By: #### L 500.4050, L100.0100, L300.3900 ####[facility] [address] [place], [address] Calcium [Mass/Vol] 7.6 mg/dL Normal 7.6-11.0 [facility] Comment on above: Performed By: #### L 500.4050, L100.0100, L300.3900 ####[facility] [address] [place], [address] Chloride [Moles/Vol] 115 mmol/L High 98-108 [facility] Comment on above: Performed By: #### L 500.4050, L100.0100, L300.3900 ####[facility] [address] [place], [address] CO2 [Moles/Vol] 17.3 mmol/L Low 21.0-32.0 [facility] Comment on above: Performed By: #### L 500.4050, L100.0100, L300.3900 ####[facility] [address] [place], [address] Creatinine [Mass/Vol] 0.54 mg/dL Low 0.70-1.20 [facility] Comment on above: Performed By: #### L 500.4050, L100.0100, L300.3900 ####[facility] [address] [place], [address] ECRCL 176.53 ml/min Normal 50-250 [facility] Comment on above: Performed By: #### L 500.4050, L100.0100, L300.3900 ####[facility] [address] [place], [address] GAP 12 Normal 5-15 [facility] Comment on above: Performed By: #### L 500.4050, L100.0100, L300.3900 ####[facility] [address] [place], [address] GFR/1.73 sq M.predicted among non-blacks MDRD (S/P/Bld) [Vol rate/Area] 123 mL/min/{1.73_m2} Normal >60 [facility] Comment on above: Result Comment: mL/m in/1.73m2 CKD-EPI Creatinine Equation (2020) Performed By: #### L 500.4050, L100.0100, L300.3900 ####[facility] [address] [place], [address] Globulin (S) [Mass/Vol] 2.2 g/dL Normal 2.2-4.2 [facility] Comment on above: Performed By: #### L 500.4050, L100.0100, L300.3900 ####[facility] [address] [place], [address] Glucose [Mass/Vol] 76 mg/dL Normal 70-99 [facility] Comment on above: Performed By: #### L 500.4050, L100.0100, L300.3900 ####[facility] [address] [place], [address] Potassium [Moles/Vol] 3.0 mmol/L Low 3.3-5.1 [facility] Comment on above: Performed By: #### L 500.4050, L100.0100, L300.3900 ####[facility] [address] [place], [address] Sodium [Moles/Vol] 144 mmol/L Normal 133-145 [facility] Comment on above: Performed By: #### L 500.4050, L100.0100, L300.3900 ####[facility] [address] [place], [address] T PROT 5.4 g/dL Low 5.9-8.4 [facility] Comment on above: Performed By: #### L 500.4050, L100.0100, L300.3900 ####[facility] [address] [place], [address] Urea nitrogen [Mass/Vol] 9 mg/dL Normal 4-19 [facility] Comment on above: Performed By: #### L 500.4050, L100.0100, L300.3900 ####[facility] [address] [place], [address] Gram Stainon 05-25-2025 GS Negative Normal [facility] Comment on above: Performed By: #### M 100.2000, M100.4001, M100.2900 ####[facility] [address] [place], [address] Gram stainOrdered By: Ronda Diehl on 05-25-2025 Microscopic observation Gram stain Nom (Unsp spec) [facility] Lactic Acidon 05-25-2025 Lactate [Moles/Vol] mmol/L Normal 0.0-2.0 [facility] Comment on above: Performed By: #### L 503.6005 ####[facility] [address] [place], [address] Prothrombin Time w/INRon INR Coag (PPP) [Relative time] 1.2 {INR} Normal [facility] Comment on above: Performed By: #### L 500.4050, L100.0100, L300.3900 ####[facility] [address] [place], [address] PT Coag (PPP) [Time] 15.5 s High 11.7-14.9 [facility] Comment on above: Performed By: #### L 500.4050, L100.0100, L300.3900 ####[facility] [address] [place], [address] 12 Lead EKGon 05-24-2025 12 Lead EKG Normal [facility] Abdomen/Pelvis W IV Cont ONL Yon 05-24-2025 Abdomen/Pelvis W IV Cont ONLY Normal [facility] Absolute lymphocyte countOrd ered By: Pee Sargent on 05-24-2025 Lymphocytes Auto (Unsp spec) [#/Vol] 0.76 10*3/uL Low 0.83-4.51 [facility] Absolute neutrophil countOrd ered By: Pee Sargent on 05-24-2025 Neutrophils (Bld) [#/Vol] 16.6 10*3/uL High 2.0-7.7 [facility] Activated partial thrombopla stin time (aPTT) in platelet poor plasma by coagulation aOrdered By: Pee Sargent on 05-24-2025 aPTT Coag (PPP) [Time] 22.5 s Low 24.1-36.2 [facility] Anion gap in Serum or Plasma Ordered By: Pee Sargent on 05-24-2025 Anion gap [Moles/Vol] 13 mmol/L 5-15 [facility] Automated lymphocyte count a s percentage of total leukocytesOrdered By: Pee Sargent on 05-24-2025 Lymphocytes/100 WBC Auto (Unsp spec) 4.1 % Low 19-41 [facility] BUN/creatinine ratioOrdered By: Pee Sargent on 05-24-2025 Urea nitrogen/Creatinine [Mass ratio] 15.9 mg/mg 10- [facility] Basic Metabolic Profile (BMP )on 05-24-2025 BUN/CRE 15.9 RATIO Normal - [facility] Comment on above: Performed By: #### L 503.6005, L300.3900, L500.2500, L300.4310, L100.0100 ####[facility] [address] [place], [place], [address] Calcium [Mass/Vol] 7.7 mg/dL Normal 7.6-11.0 [facility] Comment on above: Performed By: #### L 503.6005, L300.3900, L500.2500, L300.4310, L100.0100 ####[facility] [address] [place], [address] Chloride [Moles/Vol] 111 mmol/L High 98-108 [facility] Comment on above: Performed By: #### L 503.6005, L300.3900, L500.2500, L300.4310, L100.0100 ####[facility] [address] [place], [address] CO2 [Moles/Vol] 18.0 mmol/L Low 21.0-32.0 [facility] Comment on above: Performed By: #### L 503.6005, L300.3900, L500.2500, L300.4310, L100.0100 ####[facility] [address] [place], [address] Creatinine [Mass/Vol] 0.54 mg/dL Low 0.70-1.20 [facility] Comment on above: Performed By: #### L 503.6005, L300.3900, L500.2500, L300.4310, L100.0100 ####[facility] [address] [place], [address] ECRCL 177.83 ml/min Normal 50-250 [facility] Comment on above: Performed By: #### L 503.6005, L300.3900, L500.2500, L300.4310, L100.0100 ####[facility] [address] [place], [address] GAP 13 Normal 5-15 [facility] Comment on above: Performed By: #### L 503.6005, L300.3900, L500.2500, L300.4310, L100.0100 ####[facility] [address] [place], [address] GFR/1.73 sq M.predicted among non-blacks MDRD (S/P/Bld) [Vol rate/Area] 123 mL/min/{1.73_m2} Normal >60 [facility] Comment on above: Result Comment: mL/m in/1.73m2 CKD-EPI Creatinine Equation (2020) Performed By: #### L 503.6005, L300.3900, L500.2500, L300.4310, L100.0100 ####[facility] [address] [place], [address] Glucose [Mass/Vol] 105 mg/dL High 70-99 [facility] Comment on above: Performed By: #### L 503.6005, L300.3900, L500.2500, L300.4310, L100.0100 ####[facility] [address] [place], [address] Potassium [Moles/Vol] 3.5 mmol/L Normal 3.3-5.1 [facility] Comment on above: Result Comment: Hemo lysis present, Results??could be affected.?? Performed By: #### L 503.6005, L300.3900, L500.2500, L300.4310, L100.0100 ####[facility] [address] [place], [address] Sodium [Moles/Vol] 142 mmol/L Normal 133-145 [facility] Comment on above: Performed By: #### L 503.6005, L300.3900, L500.2500, L300.4310, L100.0100 ####[facility] [address] [place], [address] Urea nitrogen [Mass/Vol] 9 mg/dL Normal 4-19 [facility] Comment on above: Performed By: #### L 503.6005, L300.3900, L500.2500, L300.4310, L100.0100 ####[facility] [address] [place], [address] Basophil percentageOrdered B y: Pee Sargent on 05-24-2025 Basophils/100 WBC (Bld) 0.2 % 0-1 [facility] Bilirubin Test strip Ql (U)O rdered By: Pee Sargent on 05-24-2025 Bilirubin Ql (U) Negative Negative [facility] Blood cultureOrdered By: Rachel Diehl on 05-24-2025 Bacteria identified Cx Nom (Bld) No growth in 5 days. [facility] Bacteria identified Cx Nom (Bld) No growth in 5 days. [facility] CBC W/Diff, Automatedon 05-01 Absolute Lymph 1.07 X10 3/uL Normal 0.83-4.51 [facility] Comment on above: Performed By: #### L 100.0100 ####[facility] [address] [place], [address] Absolute Neut 17.8 X10 3/uL High 2.0-7.7 [facility] Comment on above: Performed By: #### L 100.0100 ####[facility] [address] [place], [address] Basophils/100 WBC (Bld) 0.2 % Normal 0-1 [facility] Comment on above: Performed By: #### L 100.0100 ####[facility] [address] [place], [address] Eosinophils/100 WBC (Bld) 0.1 % Normal 0-5 [facility] Comment on above: Performed By: #### L 100.0100 ####[facility] [address] [place], [address] Erythrocyte distribution width (RBC) [Ratio] 13.4 % Normal 11.6-14.6 [facility] Comment on above: Performed By: #### L 100.0100 ####[facility] [address] [place], [address] Hematocrit (Bld) [Volume fraction] 28.6 % Low 37-47 [facility] Comment on above: Performed By: #### L 100.0100 ####[facility] [address] [place], [address] Hemoglobin (Bld) [Mass/Vol] 9.5 g/dL Low 12.0-15.0 [facility] Comment on above: Performed By: #### L 100.0100 ####[facility] [address] [place], [address] IG% 0.800 Normal 0.0-0.9 [facility] Comment on above: Result Comment: IG% - Immature Granulocytes (promyelocytes, myelocytes andmetamyelocytes) > 1% indicates that a LEFT SHIFT is Present. Performed By: #### L 100.0100 ####[facility] [address] [place], [address] Lymphocytes/100 WBC (Bld) 5.2 % Low 19-41 [facility] Comment on above: Performed By: #### L 100.0100 ####[facility] [address] [place], [address] MCH (RBC) [Entitic mass] 29.2 pg Normal 27.0-32.0 [facility] Comment on above: Performed By: #### L 100.0100 ####[facility] [address] [place], [address] MCHC (RBC) [Mass/Vol] 33.2 g/dL Normal 32-36 [facility] Comment on above: Performed By: #### L 100.0100 ####[facility] [address] [place], [address] MCV (RBC) [Entitic vol] 88.0 fL Normal 81-99 [facility] Comment on above: Performed By: #### L 100.0100 ####[facility] [address] [place], [address] Monocytes/100 WBC (Bld) 6.7 % Normal 0-10 [facility] Comment on above: Performed By: #### L 100.0100 ####[facility] [address] [place], [address] Neutrophils/100 WBC (Bld) 87.0 % High 47-70 [facility] Comment on above: Performed By: #### L 100.0100 ####[facility] [address] [place], [address] Nucleated RBC (Bld) [#/Vol] 0 10*3/uL Normal 0-5 [facility] Comment on above: Performed By: #### L 100.0100 ####[facility] [address] [place], [address] Platelet mean volume (Bld) [Entitic vol] 8.3 fL Normal 6.2-12.0 [facility] Comment on above: Performed By: #### L 100.0100 ####[facility] [address] [place], [address] Platelets (Bld) [#/Vol] 378 10*3/uL Normal 150-450 [facility] Comment on above: Performed By: #### L 100.0100 ####[facility] [address] [place], [address] RBC (Bld) [#/Vol] 3.25 10*6/uL Low 4.2-5.4 [facility] Comment on above: Performed By: #### L 100.0100 ####[facility] [address] [place], [address] RDW SD 43.4 fl Normal 35.1-43.9 [facility] Comment on above: Performed By: #### L 100.0100 ####[facility] [address] [place], [address] WBC (Bld) [#/Vol] 20.4 10*3/uL High 4.4-11.0 [facility] Comment on above: Performed By: #### L 100.0100 ####[facility] [address] [place], [address] Absolute Lymph 0.76 X10 3/uL Low 0.83-4.51 [facility] Comment on above: Performed By: #### L 503.6005, L300.3900, L500.2500, L300.4310, L100.0100 ####[facility] [address] [place], [address] Absolute Neut 16.6 X10 3/uL High 2.0-7.7 [facility] Comment on above: Performed By: #### L 503.6005, L300.3900, L500.2500, L300.4310, L100.0100 ####[facility] [address] [place], [address] Basophils/100 WBC (Bld) 0.2 % Normal 0-1 [facility] Comment on above: Performed By: #### L 503.6005, L300.3900, L500.2500, L300.4310, L100.0100 ####[facility] [address] [place], [address] Eosinophils/100 WBC (Bld) 0.4 % Normal 0-5 [facility] Comment on above: Performed By: #### L 503.6005, L300.3900, L500.2500, L300.4310, L100.0100 ####[facility] [address] [place], [address] Erythrocyte distribution width (RBC) [Ratio] 13.3 % Normal 11.6-14.6 [facility] Comment on above: Performed By: #### L 503.6005, L300.3900, L500.2500, L300.4310, L100.0100 ####[facility] [address] [place], [address] Hematocrit (Bld) [Volume fraction] 29.4 % Low 37-47 [facility] Comment on above: Performed By: #### L 503.6005, L300.3900, L500.2500, L300.4310, L100.0100 ####[facility] [address] [place], [address] Hemoglobin (Bld) [Mass/Vol] 9.9 g/dL Low 12.0-15.0 [facility] Comment on above: Performed By: #### L 503.6005, L300.3900, L500.2500, L300.4310, L100.0100 ####[facility] [address] [place], [address] IG% 0.600 Normal 0.0-0.9 [facility] Comment on above: Result Comment: IG% - Immature Granulocytes (promyelocytes, myelocytes andmetamyelocytes) > 1% indicates that a LEFT SHIFT is Present. Performed By: #### L 503.6005, L300.3900, L500.2500, L300.4310, L100.0100 ####[facility] [address] [place], [address] Lymphocytes/100 WBC (Bld) 4.1 % Low 19-41 [facility] Comment on above: Performed By: #### L 503.6005, L300.3900, L500.2500, L300.4310, L100.0100 ####[facility] [address] [place], [address] MCH (RBC) [Entitic mass] 29.5 pg Normal 27.0-32.0 [facility] Comment on above: Performed By: #### L 503.6005, L300.3900, L500.2500, L300.4310, L100.0100 ####[facility] [address] [place], [address] MCHC (RBC) [Mass/Vol] 33.7 g/dL Normal 32-36 [facility] Comment on above: Performed By: #### L 503.6005, L300.3900, L500.2500, L300.4310, L100.0100 ####[facility] [address] [place], [address] MCV (RBC) [Entitic vol] 87.5 fL Normal 81-99 [facility] Comment on above: Performed By: #### L 503.6005, L300.3900, L500.2500, L300.4310, L100.0100 ####[facility] [address] [place], [address] Monocytes/100 WBC (Bld) 5.7 % Normal 0-10 [facility] Comment on above: Performed By: #### L 503.6005, L300.3900, L500.2500, L300.4310, L100.0100 ####[facility] [address] [place], [address] Neutrophils/100 WBC (Bld) 89.0 % High 47-70 [facility] Comment on above: Performed By: #### L 503.6005, L300.3900, L500.2500, L300.4310, L100.0100 ####[facility] [address] [place], [address] Nucleated RBC (Bld) [#/Vol] 0 10*3/uL Normal 0-5 [facility] Comment on above: Performed By: #### L 503.6005, L300.3900, L500.2500, L300.4310, L100.0100 ####[facility] [address] [place], [address] Platelet mean volume (Bld) [Entitic vol] 8.4 fL Normal 6.2-12.0 [facility] Comment on above: Performed By: #### L 503.6005, L300.3900, L500.2500, L300.4310, L100.0100 ####[facility] [address] [place], [address] Platelets (Bld) [#/Vol] 396 10*3/uL Normal 150-450 [facility] Comment on above: Performed By: #### L 503.6005, L300.3900, L500.2500, L300.4310, L100.0100 ####[facility] [address] [place], [address] RBC (Bld) [#/Vol] 3.36 10*6/uL Low 4.2-5.4 [facility] Comment on above: Performed By: #### L 503.6005, L300.3900, L500.2500, L300.4310, L100.0100 ####[facility] [address] [place], [address] RDW SD 42.8 fl Normal 35.1-43.9 [facility] Comment on above: Performed By: #### L 503.6005, L300.3900, L500.2500, L300.4310, L100.0100 ####[facility] [address] [place], [address] WBC (Bld) [#/Vol] 18.7 10*3/uL High 4.4-11.0 [facility] Comment on above: Performed By: #### L 503.6005, L300.3900, L500.2500, L300.4310, L100.0100 ####[facility] [address] [place], [address] CTA Chest W/WO Contraston CTA Chest W/WO Contrast Normal [facility] Carbon dioxide, total [Moles /volume] in Central venous bloodOrdered By: Pee Sargent on 05-24-2025 CO2 [Moles/Vol] 18.0 mmol/L Low 21.0-32.0 [facility] Chloride assayOrdered By: Shira Sargent on 05-24-2025 Chloride [Moles/Vol] 111 mmol/L High 98-108 [facility] Emergency Department Summary on 05-24-2025 Emergency Department Summary Normal [facility] Eosinophil percentageOrdered By: Pee Sargent on 05-24-2025 Eosinophils/100 WBC (Bld) 0.4 % 0-5 [facility] Erythrocyte distribution wid th ratioOrdered By: Pee Sargent on 05-24-2025 Erythrocyte distribution width (RBC) [Ratio] 13.3 % 11.6-14.6 [facility] Erythrocyte distribution wid th standard deviationOrdered By: Pee Sargent on 05-24-2025 Erythrocyte distribution width (RBC) [Ratio] 42.8 fl 35.1-43.9 [facility] Glomerular filtration rate ( GFR) estimation/1.73 sq m using serum, plasma, or whole bOrdered By: Pee Sargent on 05-24-2025 GFR/1.73 sq M.predicted among non-blacks MDRD (S/P/Bld) [Vol rate/Area] 123 mL/min/{1.73_m2} >60 [facility] Comment on above: mL/min/1.73m2 CKD-EP I Creatinine Equation (2020) H AND P Exam - OB/GYNon 05-01 H&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 [facility] Hematocrit Auto (Bld) [Volum e fraction]Ordered By: Pee Sargent on 05-24-2025 Hematocrit (Bld) [Volume fraction] 29.4 % Low 37-47 [facility] Hemoglobin measurementOrdere d By: Pee Sargent on 05-24-2025 Hemoglobin (Bld) [Mass/Vol] 9.9 g/dL Low 12.0-15.0 [facility] Immature granulocytes/100 WB C Auto (Bld)Ordered By: Pee Sargent on 05-24-2025 Immature granulocytes/100 WBC (Bld) 0.600 % 0.0-0.9 [facility] Comment on above: IG% - Immature Granu locytes (promyelocytes, myelocytes and metamyelocytes) > 1% indicates that a LEFT SHIFT is Present. International normalized rat io (INR) calculationOrdered By: Pee Sargent on 05-24-2025 INR Coag (Bld) [Relative time] 1.0 {INR} [facility] Ketones Test strip Ql (U)Ord ered By: Pee Sargent on 05-24-2025 Ketones Ql (U) Negative Negative [facility] Lactic Acidon 05-24-2025 Lactate [Moles/Vol] mmol/L Normal 0.0-2.0 [facility] Comment on above: Order Comment: Y Performed By: #### L 503.6005, L300.3900, L500.2500, L300.4310, L100.0100 ####[facility] [address] [place], [address] Lactic acid measurementOrder ed By: Pee Sargent on 05-24-2025 Lactate [Moles/Vol] mmol/L 0.0-2.0 [facility] MCV (mean corpuscular volume ) determinationOrdered By: Pee Sargent on 05-24-2025 MCV (RBC) [Entitic vol] 87.5 fL 81-99 [facility] Mean corpuscular hemoglobin (MCH) determinationOrdered By: Pee Sargent on 05-24-2025 MCH (RBC) [Entitic mass] 29.5 pg 27.0-32.0 [facility] Mean corpuscular hemoglobin concentration (MCHC) determinationOrdered By: Pee Sargent on 05-24-2025 MCHC (RBC) [Mass/Vol] 33.7 g/dL 32-36 [facility] Mean platelet volume determi nationOrdered By: Pee Sargent on 05-24-2025 Platelet mean volume (Bld) [Entitic vol] 8.4 fL 6.2-12.0 [facility] Microscopic analysis of urin e for red blood cells (RBC)Ordered By: Pee Sargent on 05-24-2025 Microscopic analysis of urine for red blood cells (RBC) 0-5 SEEN /hpf 0-5 [facility] Monocyte percentageOrdered B y: Pee Sargent on 05-24-2025 Monocytes/100 WBC (Bld) 5.7 % 0-10 [facility] Mucus LM Ql (Urine sed)Order ed By: Pee Sargent on 05-24-2025 Mucus Ql (Urine sed) 0 SEEN /hpf [facility] Neutrophil percentageOrdered By: Pee Sargent on 05-24-2025 Neutrophils/100 WBC (Bld) 89.0 % High 47-70 [facility] Nitrite Test strip Ql (U)Ord ered By: Pee Sargent on 05-24-2025 Nitrite Ql (U) Negative Negative [facility] Nucleated red blood cell per centageOrdered By: Pee Sargent on 05-24-2025 Nucleated RBC/100 WBC (Bld) [Ratio] 0 % 0-5 [facility] Partial Thromboplast Timeon 05-24-2025 aPTT Coag (Bld) [Time] 22.5 s Low 24.1-36.2 [facility] Comment on above: Performed By: #### L 503.6005, L300.3900, L500.2500, L300.4310, L100.0100 ####[facility] [address] [place], [place], [id number] Platelet countOrdered By: Shira Sargent on 05-24-2025 Platelets (Bld) [#/Vol] 396 10*3/uL 150-450 [facility] Potassium measurement (mass/ volume)Ordered By: Pee Sargent on 05-24-2025 Potassium (Unsp spec) [Mass/Vol] 3.5 mmol/L 3.3-5.1 [facility] Comment on above: Hemolysis present, R esults could be affected. Protein Test strip Ql (U)Ord ered By: Pee Sargent on 05-24-2025 Protein Ql (U) 15 mg/dl High Negative [facility] Prothrombin Time w/INRon INR Coag (PPP) [Relative time] 1.0 {INR} Normal [facility] Comment on above: Performed By: #### L 503.6005, L300.3900, L500.2500, L300.4310, L100.0100 ####[facility] [address] [place], [address] PT Coag (PPP) [Time] 12.8 s Normal 11.7-14.9 [facility] Comment on above: Performed By: #### L 503.6005, L300.3900, L500.2500, L300.4310, L100.0100 ####[facility] [address] [place], [address] Prothrombin timeOrdered By: Pee Sargent on 05-24-2025 PT Coag (PPP) [Time] 12.8 s 11.7-14.9 [facility] RBC Auto (Bld) [#/Vol]Ordere d By: Pee Sargent on 05-24-2025 RBC (Bld) [#/Vol] 3.36 10*6/uL Low 4.2-5.4 [facility] Serum creatinine measurement (mass/volume)Ordered By: Pee Sargent on 05-24-2025 Creatinine [Mass/Vol] 0.54 mg/dL Low 0.70-1.20 [facility] Serum glucose measurement (m ass/volume)Ordered By: Pee Sargent on 05-24-2025 Glucose [Mass/Vol] 105 mg/dL High 70-99 [facility] Serum or plasma calcium kenisha urement (mass/volume)Ordered By: Pee Sargent on 05-24-2025 Calcium [Mass/Vol] 7.7 mg/dL 7.6-11.0 [facility] Serum or plasma urea nitroge n measurement (mass/volume)Ordered By: Pee Sargent on 05-24-2025 Urea nitrogen [Mass/Vol] 9 mg/dL 4-19 [facility] Sodium levelOrdered By: Pee Sargent on 05-24-2025 Sodium [Moles/Vol] 142 mmol/L 133-145 [facility] Squamous epithelial cells de tection in urine sediment by light microscopyOrdered By: Pee Sargent on 05-24-2025 Epithelial cells.squamous LM Ql (Urine sed) 0-5 SEEN /hpf 5-10 [facility] Urinalysis, Completeon 05-24 EPI,SQUAMOUS 0-5 SEEN Normal 5-10 [facility] Comment on above: Order Comment: CLEAN CATCH Performed By: #### L 400.0001 ####[facility] [address] [place], [address] RBC 0-5 SEEN Normal 0-5 [facility] Comment on above: Order Comment: CLEAN CATCH Performed By: #### L 400.0001 ####[facility] [address] [place], [address] WBC 0-5 SEEN Normal 0-5 [facility] Comment on above: Order Comment: CLEAN CATCH Performed By: #### L 400.0001 ####[facility] [address] [place], [address] BACTERIA 0 SEEN Normal None Seen [facility] Comment on above: Order Comment: CLEAN CATCH Performed By: #### L 400.0001 ####[facility] [address] [place], [address] Mucus Ql (Urine sed) 0 SEEN Normal [facility] Comment on above: Order Comment: CLEAN CATCH Performed By: #### L 400.0001 ####[facility] [address] [place], [address] Urine clarityOrdered By: Sanjuana Sargent on 05-24-2025 Clarity (U) Clear Clear [facility] Urine color determinationOrd ered By: Pee Sargent on 05-24-2025 Color (U) Yellow Yellow [facility] Urine glucose detectionOrder ed By: Pee Sargent on 05-24-2025 Glucose Ql (U) Normal mg/dl Normal [facility] Urine leukocyte esterase det ection by dipstickOrdered By: Pee Sargent on 05-24-2025 Leukocyte esterase Test strip Ql (U) 100 /ul High Negative [facility] Urine pHOrdered By: Pee de jesus on 05-24-2025 pH (U) 7.0 [pH] 5.0 - 8.0 [facility] Urine sediment bacteria coun t by microscopy (number/high power field)Ordered By: Pee Sargent on 05-24-2025 Bacteria LM.HPF (Urine sed) [#/Area] 0 /[HPF] None Seen [facility] Urine specific gravity measu rementOrdered By: Pee Sargent on 05-24-2025 Specific gravity (U) [Rel density] 1.005 1.002-1.030 [facility] Urine urobilinogen measureme ntOrdered By: Pee Sargent on 05-24-2025 Urobilinogen Ql (U) Normal mg/dl Normal [facility] White blood cell (WBC) count Ordered By: Pee Sargent on 05-24-2025 WBC (Bld) [#/Vol] 18.7 10*3/uL High 4.4-11.0 [facility] White blood cell countOrdere d By: Pee Sargent on 05-24-2025 White blood cell count 0-5 SEEN /hpf 0-5 [facility] Absolute lymphocyte countOrd ered By: Apple Lao on 05-13-2025 Lymphocytes Auto (Unsp spec) [#/Vol] 2.88 10*3/uL 0.83-4.51 [facility] Absolute neutrophil countOrd ered By: Apple Lao on 05-13-2025 Neutrophils (Bld) [#/Vol] 12.5 10*3/uL High 2.0-7.7 [facility] Activated partial thrombopla stin time (aPTT) in platelet poor plasma by coagulation aOrdered By: Apple Lao on 05-13-2025 aPTT Coag (PPP) [Time] 22.8 s Low 24.1-36.2 [facility] Automated lymphocyte count a s percentage of total leukocytesOrdered By: Apple Lao on 05-13-2025 Lymphocytes/100 WBC Auto (Unsp spec) 17.1 % Low 19-41 [facility] Basophil percentageOrdered B y: Apple Lao on 05-13-2025 Basophils/100 WBC (Bld) 0.4 % 0-1 [facility] CBC W/Diff, Automatedon 04-30 Absolute Lymph 2.88 X10 3/uL Normal 0.83-4.51 [facility] Comment on above: Performed By: #### L 100.0100 ####[facility] [address] [place], [address] Absolute Neut 12.5 X10 3/uL High 2.0-7.7 [facility] Comment on above: Performed By: #### L 100.0100 ####[facility] [address] [place], [address] Basophils/100 WBC (Bld) 0.4 % Normal 0-1 [facility] Comment on above: Performed By: #### L 100.0100 ####[facility] [address] [place], [address] Eosinophils/100 WBC (Bld) 0.9 % Normal 0-5 [facility] Comment on above: Performed By: #### L 100.0100 ####[facility] [address] [place], [address] Erythrocyte distribution width (RBC) [Ratio] 13.6 % Normal 11.6-14.6 [facility] Comment on above: Performed By: #### L 100.0100 ####[facility] [address] [place], [address] Hematocrit (Bld) [Volume fraction] 33.9 % Low 37-47 [facility] Comment on above: Performed By: #### L 100.0100 ####[facility] [address] [place], [address] Hemoglobin (Bld) [Mass/Vol] 11.5 g/dL Low 12.0-15.0 [facility] Comment on above: Performed By: #### L 100.0100 ####[facility] [address] [place], [address] IG% 1.000 High 0.0-0.9 [facility] Comment on above: Result Comment: IG% - Immature Granulocytes (promyelocytes, myelocytes andmetamyelocytes) > 1% indicates that a LEFT SHIFT is Present. Performed By: #### L 100.0100 ####[facility] [address] [place], [address] Lymphocytes/100 WBC (Bld) 17.1 % Low 19-41 [facility] Comment on above: Performed By: #### L 100.0100 ####[facility] [address] [place], [address] MCH (RBC) [Entitic mass] 29.6 pg Normal 27.0-32.0 [facility] Comment on above: Performed By: #### L 100.0100 ####[facility] [address] [place], [address] MCHC (RBC) [Mass/Vol] 33.9 g/dL Normal 32-36 [facility] Comment on above: Performed By: #### L 100.0100 ####[facility] [address] [place], [address] MCV (RBC) [Entitic vol] 87.4 fL Normal 81-99 [facility] Comment on above: Performed By: #### L 100.0100 ####[facility] [address] [place], [address] Monocytes/100 WBC (Bld) 6.6 % Normal 0-10 [facility] Comment on above: Performed By: #### L 100.0100 ####[facility] [address] [place], [address] Neutrophils/100 WBC (Bld) 74.0 % High 47-70 [facility] Comment on above: Performed By: #### L 100.0100 ####[facility] [address] [place], [address] Nucleated RBC (Bld) [#/Vol] 0 10*3/uL Normal 0-5 [facility] Comment on above: Performed By: #### L 100.0100 ####[facility] [address] [place], [address] Platelet mean volume (Bld) [Entitic vol] 9.7 fL Normal 6.2-12.0 [facility] Comment on above: Performed By: #### L 100.0100 ####[facility] [address] [place], [address] Platelets (Bld) [#/Vol] 299 10*3/uL Normal 150-450 [facility] Comment on above: Performed By: #### L 100.0100 ####[facility] [address] [place], [address] RBC (Bld) [#/Vol] 3.88 10*6/uL Low 4.2-5.4 [facility] Comment on above: Performed By: #### L 100.0100 ####[facility] [address] [place], [address] RDW SD 43.1 fl Normal 35.1-43.9 [facility] Comment on above: Performed By: #### L 100.0100 ####[facility] [address] [place], [address] WBC (Bld) [#/Vol] 16.9 10*3/uL High 4.4-11.0 [facility] Comment on above: Performed By: #### L 100.0100 ####[facility] [address] [place], [address] CBC-Complete Blood Cnt No Di ffon 05-13-2025 Erythrocyte distribution width (RBC) [Ratio] 13.6 % Normal 11.6-14.6 [facility] Comment on above: Order Comment: Comme nts: Day #1Reason for Laboratory Test Performed By: #### L 100.0500 ####[facility] [address] [place], [address] Hematocrit (Bld) [Volume fraction] 33.8 % Low 37-47 [facility] Comment on above: Order Comment: Comme nts: Day #1Reason for Laboratory Test Performed By: #### L 100.0500 ####[facility] [address] [place], [address] Hemoglobin (Bld) [Mass/Vol] 11.4 g/dL Low 12.0-15.0 [facility] Comment on above: Order Comment: Comme nts: Day #1Reason for Laboratory Test Performed By: #### L 100.0500 ####[facility] [address] [place], [address] MCH (RBC) [Entitic mass] 29.4 pg Normal 27.0-32.0 [facility] Comment on above: Order Comment: Comme nts: Day #1Reason for Laboratory Test Performed By: #### L 100.0500 ####[facility] [address] [place], [address] MCHC (RBC) [Mass/Vol] 33.7 g/dL Normal 32-36 [facility] Comment on above: Order Comment: Comme nts: Day #1Reason for Laboratory Test Performed By: #### L 100.0500 ####[facility] [address] [place], [address] MCV (RBC) [Entitic vol] 87.1 fL Normal 81-99 [facility] Comment on above: Order Comment: Comme nts: Day #1Reason for Laboratory Test Performed By: #### L 100.0500 ####[facility] [address] [place], [address] Platelet mean volume (Bld) [Entitic vol] 9.6 fL Normal 6.2-12.0 [facility] Comment on above: Order Comment: Comme nts: Day #1Reason for Laboratory Test Performed By: #### L 100.0500 ####[facility] [address] [place], [address] Platelets (Bld) [#/Vol] 228 10*3/uL Normal 150-450 [facility] Comment on above: Order Comment: Comme nts: Day #1Reason for Laboratory Test Performed By: #### L 100.0500 ####[facility] [address] [place], [address] RBC (Bld) [#/Vol] 3.88 10*6/uL Low 4.2-5.4 [facility] Comment on above: Order Comment: Comme nts: Day #1Reason for Laboratory Test Performed By: #### L 100.0500 ####[facility] [address] [place], [address] RDW SD 43.1 fl Normal 35.1-43.9 [facility] Comment on above: Order Comment: Comme nts: Day #1Reason for Laboratory Test Performed By: #### L 100.0500 ####[facility] [address] [place], [address] WBC (Bld) [#/Vol] 15.0 10*3/uL High 4.4-11.0 [facility] Comment on above: Order Comment: Comme nts: Day #1Reason for Laboratory Test Performed By: #### L 100.0500 ####[facility] [address] [place], [address] Eosinophil percentageOrdered By: Aplpe Lao on 05-13-2025 Eosinophils/100 WBC (Bld) 0.9 % 0-5 [facility] Erythrocyte distribution wid th ratioOrdered By: Apple Lao on 05-13-2025 Erythrocyte distribution width (RBC) [Ratio] 13.6 % 11.6-14.6 [facility] Erythrocyte distribution wid th standard deviationOrdered By: Apple Lao on 05-13-2025 Erythrocyte distribution width (RBC) [Ratio] 43.1 fl 35.1-43.9 [facility] Fibrinogenon 05-13-2025 FIBRINOGEN 422 mg/dl Normal 203-444 [facility] Comment on above: Performed By: #### L 300.4700, L300.3900, L300.4310 ####[facility] [address] [place], [address] Hematocrit Auto (Bld) [Volum e fraction]Ordered By: Apple Lao on 05-13-2025 Hematocrit (Bld) [Volume fraction] 33.9 % Low 37-47 [facility] Hemoglobin measurementOrdere d By: Apple Lao on 05-13-2025 Hemoglobin (Bld) [Mass/Vol] 11.5 g/dL Low 12.0-15.0 [facility] Immature granulocytes/100 WB C Auto (Bld)Ordered By: Apple Lao on 05-13-2025 Immature granulocytes/100 WBC (Bld) 1.000 % High 0.0-0.9 [facility] Comment on above: IG% - Immature Granu locytes (promyelocytes, myelocytes and metamyelocytes) > 1% indicates that a LEFT SHIFT is Present. International normalized rat io (INR) calculationOrdered By: Apple Lao on 05-13-2025 INR Coag (Bld) [Relative time] 1.0 {INR} [facility] Thomas 05-13-2025 ROXANA Positive Abnormal [facility] Comment on above: Result Comment: Ashlee Huertas Study Reference: Negative POSITIVE AB* Feto-maternal hemorrhage ( RBCs): 10 mL. TESTING PERFORMED AT [facility]. ORIGINAL REPORT ON FILE IN LAB CONTAINS ADDITIONAL TEST SITE INFORMATION. Performed By: #### L 803.2300 ####[facility] [address] [place], [address] MCV (mean corpuscular volume ) determinationOrdered By: Apple Lao on 05-13-2025 MCV (RBC) [Entitic vol] 87.4 fL 81-99 [facility] Mean corpuscular hemoglobin (MCH) determinationOrdered By: Apple Lao on 05-13-2025 MCH (RBC) [Entitic mass] 29.6 pg 27.0-32.0 [facility] Mean corpuscular hemoglobin concentration (MCHC) determinationOrdered By: Apple Lao on 05-13-2025 MCHC (RBC) [Mass/Vol] 33.9 g/dL 32-36 [facility] Mean platelet volume determi nationOrdered By: Apple Lao on 05-13-2025 Platelet mean volume (Bld) [Entitic vol] 9.7 fL 6.2-12.0 [facility] Monocyte percentageOrdered B y: Apple Lao on 05-13-2025 Monocytes/100 WBC (Bld) 6.6 % 0-10 [facility] Neutrophil percentageOrdered By: Apple Lao on 05-13-2025 Neutrophils/100 WBC (Bld) 74.0 % High 47-70 [facility] Nucleated red blood cell per centageOrdered By: Apple Lao on 05-13-2025 Nucleated RBC/100 WBC (Bld) [Ratio] 0 % 0-5 [facility] Partial Thromboplast Timeon 05-13-2025 aPTT Coag (Bld) [Time] 22.8 s Low 24.1-36.2 [facility] Comment on above: Performed By: #### L 300.2190, L300.3900, L300.4310 ####[facility] [address] [place], [address] Platelet countOrdered By: Elena Lao on 05-13-2025 Platelets (Bld) [#/Vol] 299 10*3/uL 150-450 [facility] Prothrombin Time w/INRon INR Coag (PPP) [Relative time] 1.0 {INR} Normal [facility] Comment on above: Performed By: #### L 300.4700, L300.3900, L300.4310 ####[facility] [address] [place], [address] PT Coag (PPP) [Time] 12.8 s Normal 11.7-14.9 [facility] Comment on above: Performed By: #### L 300.4700, L300.3900, L300.4310 ####[facility] [address] [place], [address] Prothrombin timeOrdered By: Apple Lao on 05-13-2025 PT Coag (PPP) [Time] 12.8 s 11.7-14.9 [facility] RBC Auto (Bld) [#/Vol]Ordere d By: Apple Lao on 05-13-2025 RBC (Bld) [#/Vol] 3.88 10*6/uL Low 4.2-5.4 [facility] White blood cell (WBC) count Ordered By: Apple Lao on 05-13-2025 WBC (Bld) [#/Vol] 16.9 10*3/uL High 4.4-11.0 [facility] Amphetamine detection with 1 000 ng/mL as cutoffOrdered By: Edel Diehl on 05-12-2025 Amphetamines Screen method >1000 ng/mL Ql (U) Negative < 200 ng/mL [facility] BRho(D) IGon 05-12-2025 Rho(D) IG Normal [facility] Comment on above: Result Comment: [id number] Rho(D) IG PRSMD TRFSD 05/12/25 [id number] Rho(D) IG PRSMD TRFSD 05/13/25 1138 Performed By: #### B RHNM, BRho(D) IG ####[facility] [address] [place], [address] CBC W/Diff, Automatedon - 3-2024 Absolute Lymph 2.15 X10 3/uL Normal 0.83-4.51 [facility] Comment on above: Performed By: #### L 100.0100, BTS ####[facility] [address] [place], [address] Absolute Neut 9.1 X10 3/uL High 2.0-7.7 [facility] Comment on above: Performed By: #### L 100.0100, BTS ####[facility] [address] [place], [address] Basophils/100 WBC (Bld) 0.4 % Normal 0-1 [facility] Comment on above: Performed By: #### L 100.0100, BTS ####[facility] [address] [place], [address] Eosinophils/100 WBC (Bld) 1.1 % Normal 0-5 [facility] Comment on above: Performed By: #### L 100.0100, BTS ####[facility] [address] [place], [address] Erythrocyte distribution width (RBC) [Ratio] 13.4 % Normal 11.6-14.6 [facility] Comment on above: Performed By: #### L 100.0100, BTS ####[facility] [address] [place], [address] Hematocrit (Bld) [Volume fraction] 36.4 % Low 37-47 [facility] Comment on above: Performed By: #### L 100.0100, BTS ####[facility] [address] [place], [address] Hemoglobin (Bld) [Mass/Vol] 12.5 g/dL Normal 12.0-15.0 [facility] Comment on above: Performed By: #### L 100.0100, BTS ####[facility] [address] [place], [address] IG% 1.300 High 0.0-0.9 [facility] Comment on above: Result Comment: IG% - Immature Granulocytes (promyelocytes, myelocytes andmetamyelocytes) > 1% indicates that a LEFT SHIFT is Present. Performed By: #### L 100.0100, BTS ####[facility] [address] [place], [address] Lymphocytes/100 WBC (Bld) 17.3 % Low 19-41 [facility] Comment on above: Performed By: #### L 100.0100, BTS ####[facility] [address] [place], [address] MCH (RBC) [Entitic mass] 29.8 pg Normal 27.0-32.0 [facility] Comment on above: Performed By: #### L 100.0100, BTS ####[facility] [address] [place], [address] MCHC (RBC) [Mass/Vol] 34.3 g/dL Normal 32-36 [facility] Comment on above: Performed By: #### L 100.0100, BTS ####[facility] [address] [place], [address] MCV (RBC) [Entitic vol] 86.7 fL Normal 81-99 [facility] Comment on above: Performed By: #### L 100.0100, BTS ####[facility] [address] [place], [address] Monocytes/100 WBC (Bld) 6.7 % Normal 0-10 [facility] Comment on above: Performed By: #### L 100.0100, BTS ####[facility] [address] [place], [address] Neutrophils/100 WBC (Bld) 73.2 % High 47-70 [facility] Comment on above: Performed By: #### L 100.0100, BTS ####[facility] [address] [place], [address] Nucleated RBC (Bld) [#/Vol] 0 10*3/uL Normal 0-5 [facility] Comment on above: Performed By: #### L 100.0100, BTS ####[facility] [address] [place], [address] Platelet mean volume (Bld) [Entitic vol] 9.8 fL Normal 6.2-12.0 [facility] Comment on above: Performed By: #### L 100.0100, BTS ####[facility] [address] [place], [address] Platelets (Bld) [#/Vol] 252 10*3/uL Normal 150-450 [facility] Comment on above: Performed By: #### L 100.0100, BTS ####[facility] [address] [place], [address] RBC (Bld) [#/Vol] 4.20 10*6/uL Normal 4.2-5.4 [facility] Comment on above: Performed By: #### L 100.0100, BTS ####[facility] [address] [place], [address] RDW SD 42.0 fl Normal 35.1-43.9 [facility] Comment on above: Performed By: #### L 100.0100, BTS ####[facility] [address] [place], [address] WBC (Bld) [#/Vol] 12.4 10*3/uL High 4.4-11.0 [facility] Comment on above: Performed By: #### L 100.0100, BTS ####[facility] [address] 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 [facility] No Panel InformationOrdered By: Edel Diehl on 05-12-2025 Urine Buprenorphine Qualitative Negative < 200 ng/mL [facility] Urine Oxycodone Screen Negative < 100 ng/mL [facility] Operative Reporton Operative Report Normal [facility] Quantitative urine opiates m easurementOrdered By: Edel Diehl on 05-12-2025 Opiates Ql (U) Negative < 300 ng/mL [facility] Rh Negative Mom Workupon SCREEN Positive Abnormal NEGATIVE [facility] Comment on above: Order Comment: Comme nts: Age > 13 Weeksbaby [id number] Result Comment: ASHLEE LI TEST TO FOLLOW. Performed By: #### B RHNM, BRho(D) IG ####[facility] [address] [place], [address] ABO and Rh group Nom (Bld) Blood group B Rh(D) negative Normal [facility] Comment on above: Order Comment: Comme nts: Age > 13 Weeksbaby [id number] Performed By: #### B RHNM, BRho(D) IG ####[facility] [address] [place], [address] ABO and Rh group Nom (Bld) Blood group B Rh(D) positive Normal [facility] Comment on above: Order Comment: Comme nts: Age > 13 Weeksbaby [id number] Performed By: #### B RHNM, BRho(D) IG ####[facility] [address] [place], [address] DIRECT ANTIGLOB Negative Normal NEGATIVE [facility] Comment on above: Order Comment: Comme nts: Age > 13 Weeksbaby pauldtt91 Performed By: #### B Carolina BARRON(D) IG ####[facility] [address] [place], [address] MOM'S ABS Negative Normal [facility] Comment on above: Order Comment: Comme nts: Age > 13 Weeksbaby sylqgyd31 Performed By: #### B Carolina BARRON(D) IG ####[facility] [address] [place], [address] Screening urine fentanyl kaden surementOrdered By: Edel Diehl on 05-12-2025 fentaNYL Screen Ql (U) Negative [facility] Syphilis Antibodieson 2024 Syphilis Abs Non-Reactive Normal Nonreactive [facility] Comment on above: Performed By: #### L 509.8002 ####[facility] [address] [place], [address] Type AND Screenon 05-12-2025 Ab SCREEN GEL Negative Normal [facility] Comment on above: Order Comment: SC-SE CTION Performed By: #### L 100.0100, BTS ####[facility] [address] [place], [address] Urine Drug Screen (VISTA)on 05-12-2025 AMPHETAMINES Negative Normal <1000 ng/mL [facility] Comment on above: Performed By: #### L 505.5000 ####[facility] [address] [place], [address] BARBITIURATES Negative Normal < 200 ng/mL [facility] Comment on above: Performed By: #### L 505.5000 ####[facility] [address] [place], [address] BENZODIAZIPINE Negative Normal < 200 ng/mL [facility] Comment on above: Performed By: #### L 505.5000 ####[facility] [address] [place] [id number] BUP Ur Drug Scr Negative Normal < 200 ng/mL [facility] Comment on above: Performed By: #### L 505.5000 ####[facility] [address] [place] [address] COCAINE Negative Normal < 300 ng/mL [facility] Comment on above: Performed By: #### L 505.5000 ####[facility] [address] [place] [id number] Fentanyl Negative Normal [facility] Comment on above: Performed By: #### L 505.5000 ####[facility] [address] [place] [id number] METHADONE Negative Normal < 300 ng/mL [facility] Comment on above: Performed By: #### L 505.5000 ####[facility] [address] [place] [id number] OPIATES Negative Normal < 300 ng/mL [facility] Comment on above: Performed By: #### L 505.5000 ####[facility] [address] [place] [address] OXYCODONE Negative Normal < 100 ng/mL [facility] Comment on above: Performed By: #### L 505.5000 ####[facility] [address] [place] [phone] PCP Negative Normal < 25 ng/mL [facility] Comment on above: Performed By: #### L 505.5000 ####[facility] [address] [place] [id number] THC Negative Normal < 50 ng/mL [facility] Comment on above: Performed By: #### L 505.5000 ####[facility] [address] [place], [place], [address] Urine benzodiazepine levelOr dered By: Edel Diehl on 05-12-2025 Benzodiazepines Ql (U) Negative < 200 ng/mL [facility] Urine cocaine levelOrdered B y: Edel Diehl on 05-12-2025 Cocaine Ql (U) Negative < 300 ng/mL [facility] Urine tozor-1-lmmiipuoyukeam abinol (THC) measurementOrdered By: Edel Diehl on 05-12-2025 Cannabinoids Screen Ql (U) Negative < 50 ng/mL [facility] Urine phencyclidine (PCP) de tectionOrdered By: Edel Diehl on 05-12-2025 Phencyclidine Ql (U) Negative < 25 ng/mL [facility] Laboratory - Chemistry and C hemistry - challengeOrdered By: Edel Diehl on 05-06-2025 Glucose Ql (U) Negative [facility] Laboratory - UrinalysisOrder ed By: Edel Diehl on 05-06-2025 Protein Ql (U) Negative [facility] Corporate Receptionist Office Visit Reporton 05-06-2025 Corporate Receptionist Office Visit Report Normal [facility] Rule out Beta Strep (Grp. B) on 05-03-2025 RANJAN Normal [facility] Comment on above: Performed By: #### M 100.3400 ####[facility] [address] [place], [address] Laboratory - Chemistry and C hemistry - challengeOrdered By: Edel Diehl on 04-28-2025 Glucose Ql (U) Negative [facility] Laboratory - UrinalysisOrder ed By: Edel Diehl on 04-28-2025 Protein Ql (U) Negative [facility] Corporate Receptionist Office Visit Reporton 04-28-2025 Corporate Receptionist Office Visit Report Normal [facility] Screening beta-hemolytic Str eptococcus cultureOrdered By: Edel Diehl on 04-28-2025 Beta-hemolytic Streptococcus culture Streptococcus agalactiae (B) Abnormal [facility] OB Biophysical Prof W/O NSTo n 04-22-2025 OB Biophysical Prof W/O NST Normal [facility] Laboratory - Chemistry and C hemistry - challengeOrdered By: Apple Lao on 04-20-2025 Glucose Ql (U) Negative [facility] Laboratory - UrinalysisOrder ed By: Apple Tashia on 04-20-2025 Protein Ql (U) Negative [facility] Corporate Receptionist Office Visit Reporton 04-20-2025 Corporate Receptionist Office Visit Report Normal [facility] OB Biophysical Prof W/O NSTo n 04-19-2025 OB Biophysical Prof W/O NST Normal [facility] OB Triage Progress Noteon OB Triage Progress Note Normal [facility] OB Biophysical Prof W/O NSTo n 04-15-2025 OB Biophysical Prof W/O NST Normal [facility] L3410.9992on 04-08-2025 [facility] Misc. COMMENT Normal . [facility] Comment on above: Order Comment: [id number] 640serum FZ bile acids Result Comment: Perf ormed at: CB - [facility] [address] [id number] Director: Huan Kuhn PhD, Phone: [phone] Performed By: #### L 500.4050, L3410.9992 ####[facility] [address] [place], [place], [id number] Anion gap in Serum or Plasma Ordered By: Edel Diehl on 04-07-2025 Anion gap [Moles/Vol] 12 mmol/L 5-15 [facility] BUN/creatinine ratioOrdered By: Edel Diehl on 04-07-2025 Urea nitrogen/Creatinine [Mass ratio] 7.7 mg/mg Low 10-20 [facility] Bilirubin, totalOrdered By: Edel Diehl on 04-07-2025 Bilirubin [Mass/Vol] 0.29 mg/dL 0.00-1.30 [facility] Carbon dioxide, total [Moles /volume] in Central venous bloodOrdered By: Edel Diehl on 04-07-2025 CO2 [Moles/Vol] 19.0 mmol/L Low 21.0-32.0 [facility] Chloride assayOrdered By: Mickey Diehl on 04-07-2025 Chloride [Moles/Vol] 107 mmol/L 98-108 [facility] Comprehensive Metabolic Prof ilon 04-07-2025 Albumin [Mass/Vol] 3.6 g/dL Normal 3.5-5.0 [facility] Comment on above: Performed By: #### L 500.4050, L3410.9992 ####[facility] [address] [place], [address] Albumin/Globulin [Mass ratio] 1.1 {ratio} Normal 0.9-2.4 [facility] Comment on above: Performed By: #### L 500.4050, L3410.9992 ####[facility] [address] [place], [address] ALK PHOS 146 U/L High 35-104 [facility] Comment on above: Performed By: #### L 500.4050, L3410.9992 ####[facility] [address] [place], [address] ALT [Catalytic activity/Vol] 21 U/L Normal <=34 [facility] Comment on above: Performed By: #### L 500.4050, L3410.9992 ####[facility] [address] [place], [address] AST [Catalytic activity/Vol] 19 U/L Normal <=31 [facility] Comment on above: Performed By: #### L 500.4050, L3410.9992 ####[facility] [address] [place], [address] Bilirubin [Mass/Vol] 0.29 mg/dL Normal 0.00-1.30 [facility] Comment on above: Performed By: #### L 500.4050, L3410.9992 ####[facility] [address] [place], [address] BUN/CRE 7.7 RATIO Low 10-20 [facility] Comment on above: Performed By: #### L 500.4050, L3410.9992 ####[facility] [address] [place], [address] Calcium [Mass/Vol] 9.2 mg/dL Normal 7.6-11.0 [facility] Comment on above: Performed By: #### L 500.4050, L3410.9992 ####[facility] [address] [place], [address] Chloride [Moles/Vol] 107 mmol/L Normal 98-108 [facility] Comment on above: Performed By: #### L 500.4050, L3410.9992 ####[facility] [address] [place], [address] CO2 [Moles/Vol] 19.0 mmol/L Low 21.0-32.0 [facility] Comment on above: Performed By: #### L 500.4050, L3410.9992 ####[facility] [address] [place], [address] Creatinine [Mass/Vol] 0.58 mg/dL Low 0.70-1.20 [facility] Comment on above: Performed By: #### L 500.4050, L3410.9992 ####[facility] [address] [place], [address] GAP 12 Normal 5-15 [facility] Comment on above: Performed By: #### L 500.4050, L3410.9992 ####[facility] [address] [place], [address] GFR/1.73 sq M.predicted among non-blacks MDRD (S/P/Bld) [Vol rate/Area] 121 mL/min/{1.73_m2} Normal >60 [facility] Comment on above: Result Comment: mL/m in/1.73m2 CKD-EPI Creatinine Equation (2020) Performed By: #### L 500.4050, L3410.9992 ####[facility] [address] [place], [address] Globulin (S) [Mass/Vol] 3.4 g/dL Normal 2.2-4.2 [facility] Comment on above: Performed By: #### L 500.4050, L3410.9992 ####[facility] [address] [place], [address] Glucose [Mass/Vol] 85 mg/dL Normal 70-99 [facility] Comment on above: Performed By: #### L 500.4050, L3410.9992 ####[facility] [address] [place], [address] Potassium [Moles/Vol] 4.0 mmol/L Normal 3.3-5.1 [facility] Comment on above: Performed By: #### L 500.4050, L3410.9992 ####[facility] [address] [place], [address] Sodium [Moles/Vol] 137 mmol/L Normal 133-145 [facility] Comment on above: Performed By: #### L 500.4050, L3410.9992 ####[facility] [address] [place], [address] T PROT 6.9 g/dL Normal 5.9-8.4 [facility] Comment on above: Performed By: #### L 500.4050, L3410.9992 ####[facility] [address] [place], [address] Urea nitrogen [Mass/Vol] 4 mg/dL Normal 4-19 [facility] Comment on above: Performed By: #### L 500.4050, L3410.9992 ####[facility] [address] [place], [address] Glomerular filtration rate ( GFR) estimation/1.73 sq m using serum, plasma, or whole bOrdered By: Edel Diehl on 04-07-2025 GFR/1.73 sq M.predicted among non-blacks MDRD (S/P/Bld) [Vol rate/Area] 121 mL/min/{1.73_m2} >60 [facility] Comment on above: mL/min/1.73m2 CKD-EP I Creatinine Equation (2020) Laboratory - Chemistry and C hemistry - challengeOrdered By: Edel Diehl on 04-07-2025 AST [Catalytic activity/Vol] 19 U/L <32 [facility] Corporate Receptionist Office Visit Reporton 04-07-2025 Corporate Receptionist Office Visit Report Normal [facility] Potassium measurement (mass/ volume)Ordered By: Edel Diehl on 04-07-2025 Potassium (Unsp spec) [Mass/Vol] 4.0 mmol/L 3.3-5.1 [facility] Serum creatinine measurement (mass/volume)Ordered By: Edel Diehl on 04-07-2025 Creatinine [Mass/Vol] 0.58 mg/dL Low 0.70-1.20 [facility] Serum globulin measurementOr dered By: Edel Diehl on 04-07-2025 Globulin (S) [Mass/Vol] 3.4 g/dL 2.2-4.2 [facility] Serum glucose measurement (m ass/volume)Ordered By: Edel Diehl on 04-07-2025 Glucose [Mass/Vol] 85 mg/dL 70-99 [facility] Serum or plasma alanine jung otransferase (ALT) measurementOrdered By: Edel Diehl on 04-07-2025 ALT [Catalytic activity/Vol] 21 U/L <35 [facility] Serum or plasma albumin kenisha urement (mass/volume)Ordered By: Edel Diehl on 04-07-2025 Albumin [Mass/Vol] 3.6 g/dL 3.5-5.0 [facility] Serum or plasma albumin/glob ulin mass ratioOrdered By: Edel Diehl on 04-07-2025 Albumin/Globulin [Mass ratio] 1.1 {ratio} 0.9-2.4 [facility] Serum or plasma alkaline ct sphatase measurementOrdered By: Edel Diehl on 04-07-2025 ALP [Catalytic activity/Vol] 146 U/L High 35-104 [facility] Serum or plasma calcium kenisha urement (mass/volume)Ordered By: Edel Diehl on 04-07-2025 Calcium [Mass/Vol] 9.2 mg/dL 7.6-11.0 [facility] Serum or plasma urea nitroge n measurement (mass/volume)Ordered By: Edel Diehl on 04-07-2025 Urea nitrogen [Mass/Vol] 4 mg/dL 4-19 [facility] Sodium levelOrdered By: Kellen Diehl on 04-07-2025 Sodium [Moles/Vol] 137 mmol/L 133-145 [facility] Total proteinOrdered By: Rachel Diehl on 04-07-2025 Protein [Mass/Vol] 6.9 g/dL 5.9-8.4 [facility] Laboratory - Chemistry and C hemistry - challengeOrdered By: Edel Diehl on 03-26-2025 Glucose Ql (U) Negative [facility] Laboratory - UrinalysisOrder ed By: Edel Diehl on 03-26-2025 Protein Ql (U) Negative [facility] Corporate Receptionist Office Visit Reporton 03-26-2025 Corporate Receptionist Office Visit Report [facility] [facility] Comprehensiv tracy 03-12-2025 VAC Reason for Exam: contractions No Gardnerella, Neisseria or beta-hemolytic Streptococcus isolated. Presumptive C albicans Amount Growth 2+ Normal [facility] Comment on above: Performed By: #### M 100.3200, M1.1999 ####[facility] [address] [place], [place], [id number] Gram Stainon 03-10-2025 GS Reason for Exam: contractions Gram Stain 3+ Gram positive rods 1+ White Blood Cells No Gram negative diplococci Score = 1 Interpretation: 0-3 Normal, 4-6 Intermediate, 7-10 Positive BV Normal [facility] Comment on above: Performed By: #### M 100.3200, M100.2000 ####[facility] [address] [place], [place], [id number] Gram stainOrdered By: Ronda Diehl on 03-10-2025 Microscopic observation Gram stain Nom (Unsp spec) [facility] Laboratory - Chemistry and C hemistry - challengeOrdered By: Edel Diehl on 03-10-2025 Glucose Ql (U) Negative [facility] Laboratory - UrinalysisOrder ed By: Edel Diehl on 03-10-2025 Protein Ql (U) Negative [facility] Corporate Receptionist Office Visit Reporton 03-10-2025 Corporate Receptionist Office Visit Report Normal [facility] Gestational GTT 3HR 100gon 0 03-05-2025 GEST GTT 100gm Normal [facility] Comment on above: Order [...] 03/05/25 1029 Performed By: #### L 500.4710 ####[facility] [address] [place], [place], [address] Quantitative serum or plasma 3 hour gestational glucose tolerance panelOrdered By: Kiley Jain on 03-05-2025 Glucose tolerance 3 hours gestational panel See comment [facility] Comment on above: FASTING 85 Col: 06/0 03/24 0700GLUCOSE TOLERANCE TEST FOR Reference Interval GESTATIONAL DIABETES Fasting <105 mg/dL 1 hour <190 mg/dl 2 hour <165 mg/dl 3 hour <145 mg/dl 1 HR GLU 150 Col: 03/05/25 0829 2 HR GLU 148 Col: 03/05/25 0926 3 HR GLU 60 Col: 03/05/25 1029 Absolute lymphocyte countOrd ered By: Edel Diehl on 02-26-2025 Lymphocytes Auto (Unsp spec) [#/Vol] 2.26 10*3/uL 0.83-4.51 [facility] Absolute neutrophil countOrd ered By: Edel Diehl on 02-26-2025 Neutrophils (Bld) [#/Vol] 8.8 10*3/uL High 2.0-7.7 [facility] Automated lymphocyte count a s percentage of total leukocytesOrdered By: Edel Diehl on 02-26-2025 Lymphocytes/100 WBC Auto (Unsp spec) 19.1 % 19-41 [facility] Basophil percentageOrdered B y: Edel Diehl on 02-26-2025 Basophils/100 WBC (Bld) 0.3 % 0-1 [facility] CBC W/Diff, Automatedon 01-30 0-2024 Absolute Lymph 2.26 X10 3/uL Normal 0.83-4.51 [facility] Comment on above: Performed By: #### B TS, L501.0250, L100.0100, L3890.6006, L509.8002 ####[facility] [address] [place], [address] Absolute Neut 8.8 X10 3/uL High 2.0-7.7 [facility] Comment on above: Performed By: #### B TS, L501.0250, L100.0100, L3890.6006, L509.8002 ####[facility] [address] [place], [address] Basophils/100 WBC (Bld) 0.3 % Normal 0-1 [facility] Comment on above: Performed By: #### B TS, L501.0250, L100.0100, L3890.6006, L509.8002 ####[facility] [address] [place], [address] Eosinophils/100 WBC (Bld) 1.0 % Normal 0-5 [facility] Comment on above: Performed By: #### B TS, L501.0250, L100.0100, L3890.6006, L509.8002 ####[facility] [address] [place], [address] Erythrocyte distribution width (RBC) [Ratio] 13.5 % Normal 11.6-14.6 [facility] Comment on above: Performed By: #### B TS, L501.0250, L100.0100, L3890.6006, L509.8002 ####[facility] [address] [place], [address] Hematocrit (Bld) [Volume fraction] 37.5 % Normal 37-47 [facility] Comment on above: Performed By: #### B TS, L501.0250, L100.0100, L3890.6006, L509.8002 ####[facility] [address] [place], [address] Hemoglobin (Bld) [Mass/Vol] 12.7 g/dL Normal 12.0-15.0 [facility] Comment on above: Performed By: #### B TS, L501.0250, L100.0100, L3890.6006, L509.8002 ####[facility] [address] [place], [address] IG% 0.800 Normal 0.0-0.9 [facility] Comment on above: Result Comment: IG% - Immature Granulocytes (promyelocytes, myelocytes andmetamyelocytes) > 1% indicates that a LEFT SHIFT is Present. Performed By: #### B TS, L501.0250, L100.0100, L3890.6006, L509.8002 ####[facility] [address] [place], [address] Lymphocytes/100 WBC (Bld) 19.1 % Normal 19-41 [facility] Comment on above: Performed By: #### B TS, L501.0250, L100.0100, L3890.6006, L509.8002 ####[facility] [address] [place], [address] MCH (RBC) [Entitic mass] 29.7 pg Normal 27.0-32.0 [facility] Comment on above: Performed By: #### B TS, L501.0250, L100.0100, L3890.6006, L509.8002 ####[facility] [address] [place], [address] MCHC (RBC) [Mass/Vol] 33.9 g/dL Normal 32-36 [facility] Comment on above: Performed By: #### B TS, L501.0250, L100.0100, L3890.6006, L509.8002 ####[facility] [address] [place], [address] MCV (RBC) [Entitic vol] 87.6 fL Normal 81-99 [facility] Comment on above: Performed By: #### B TS, L501.0250, L100.0100, L3890.6006, L509.8002 ####[facility] [address] [place], [address] Monocytes/100 WBC (Bld) 4.0 % Normal 0-10 [facility] Comment on above: Performed By: #### B TS, L501.0250, L100.0100, L3890.6006, L509.8002 ####[facility] [address] [place], [address] Neutrophils/100 WBC (Bld) 74.8 % High 47-70 [facility] Comment on above: Performed By: #### B TS, L501.0250, L100.0100, L3890.6006, L509.8002 ####[facility] [address] [place], [address] Nucleated RBC (Bld) [#/Vol] 0 10*3/uL Normal 0-5 [facility] Comment on above: Performed By: #### B TS, L501.0250, L100.0100, L3890.6006, L509.8002 ####[facility] [address] [place], [address] Platelet mean volume (Bld) [Entitic vol] 9.5 fL Normal 6.2-12.0 [facility] Comment on above: Performed By: #### B TS, L501.0250, L100.0100, L3890.6006, L509.8002 ####[facility] [address] [place], [address] Platelets (Bld) [#/Vol] 300 10*3/uL Normal 150-450 [facility] Comment on above: Performed By: #### B TS, L501.0250, L100.0100, L3890.6006, L509.8002 ####[facility] [address] [place], [address] RBC (Bld) [#/Vol] 4.28 10*6/uL Normal 4.2-5.4 [facility] Comment on above: Performed By: #### B TS, L501.0250, L100.0100, L3890.6006, L509.8002 ####[facility] [address] [place], [address] RDW SD 42.8 fl Normal 35.1-43.9 [facility] Comment on above: Performed By: #### B TS, L501.0250, L100.0100, L3890.6006, L509.8002 ####[facility] [address] [place], [address] WBC (Bld) [#/Vol] 11.8 10*3/uL High 4.4-11.0 [facility] Comment on above: Performed By: #### B TS, L501.0250, L100.0100, L3890.6006, L509.8002 ####[facility] [address] [place], [place], [id number] Eosinophil percentageOrdered By: Edel Shanita on 02-26-2025 Eosinophils/100 WBC (Bld) 1.0 % 0-5 [facility] Erythrocyte distribution wid th ratioOrdered By: Edel Shanita on 02-26-2025 Erythrocyte distribution width (RBC) [Ratio] 13.5 % 11.6-14.6 [facility] Erythrocyte distribution wid th standard deviationOrdered By: Edel Clarosrico on 02-26-2025 Erythrocyte distribution width (RBC) [Ratio] 42.8 fl 35.1-43.9 [facility] Glucose Challenge Gest 1H 50 trini 02-26-2025 GLU GEST 50g 1H 172 mg/dL High 70-140 [facility] Comment on above: Performed By: #### B TS, L501.0250, L100.0100, L3890.6006, L509.8002 ####[facility] [address] [place], [place], [id number] Glucose measurement at 2 haven rs post-dose gestational glucose tolerance testOrdered By: Edel Diehl on 02-26-2025 Glucose [Mass/Vol] 172 mg/dL High 70-140 [facility] HIVon 02-26-2025 HIV Non-Reactive Normal Nonreactive [facility] Comment on above: Result Comment: Non- ReactiveReactiveRepeatedly reactive samples must be confirmed according [facility] recommended confirmatory algorithms. The subresults foreither HIVAG or AHIV can be used as an aid in the selectionof the confirmation algorithm for reactive samples.Send out specimens with Reactive results to [facility] forconfirmation.Order the HIV antibody detection and differentiation:lc#[id number] Performed By: #### B TS, L501.0250, L100.0100, L3890.6006, L509.8002 ####[facility] [address] [place], [place], [id number] Hematocrit Auto (Bld) [Volum e fraction]Ordered By: Edel Diehl on 02-26-2025 Hematocrit (Bld) [Volume fraction] 37.5 % 37-47 [facility] Hemoglobin measurementOrdere d By: Edel Diehl on 02-26-2025 Hemoglobin (Bld) [Mass/Vol] 12.7 g/dL 12.0-15.0 [facility] Immature granulocytes/100 WB C Auto (Bld)Ordered By: Edel Diehl on 02-26-2025 Immature granulocytes/100 WBC (Bld) 0.800 % 0.0-0.9 [facility] Comment on above: IG% - Immature Granu locytes (promyelocytes, myelocytes and metamyelocytes) > 1% indicates that a LEFT SHIFT is Present. Laboratory - Chemistry and C hemistry - challengeOrdered By: Apple Lao on 02-26-2025 Glucose Ql (U) Negative [facility] Laboratory - UrinalysisOrder ed By: Apple Lao on 02-26-2025 Protein Ql (U) Negative [facility] MCV (mean corpuscular volume ) determinationOrdered By: Edel Diehl on 02-26-2025 MCV (RBC) [Entitic vol] 87.6 fL 81-99 [facility] Mean corpuscular hemoglobin (MCH) determinationOrdered By: Edel Diehl on 02-26-2025 MCH (RBC) [Entitic mass] 29.7 pg 27.0-32.0 [facility] Mean corpuscular hemoglobin concentration (MCHC) determinationOrdered By: Edel Diehl on 02-26-2025 MCHC (RBC) [Mass/Vol] 33.9 g/dL 32-36 [facility] Mean platelet volume determi nationOrdered By: Edel Diehl on 02-26-2025 Platelet mean volume (Bld) [Entitic vol] 9.5 fL 6.2-12.0 [facility] Monocyte percentageOrdered B y: Edel Diehl on 02-26-2025 Monocytes/100 WBC (Bld) 4.0 % 0-10 [facility] Neutrophil percentageOrdered By: Edel Diehl on 02-26-2025 Neutrophils/100 WBC (Bld) 74.8 % High 47-70 [facility] No Panel InformationOrdered By: Edel Diehl on 02-26-2025 HIV (1&2) Antibody Non-Reactive Nonreactive [facility] Comment on above: Non-ReactiveReactive Repeatedly reactive samples must be confirmed according to CDC recommended confirmatory algorithms. The subresults for either HIVAG or AHIV can be used as an aid in the selection of the confirmation algorithm for reactive samples.Send out specimens with Reactive results to [facility] for confirmation.Order the HIV antibody detection and differentiation: #[id number] Nucleated red blood cell per centageOrdered By: Edel Diehl on 02-26-2025 Nucleated RBC/100 WBC (Bld) [Ratio] 0 % 0-5 [facility] Corporate Receptionist Office Visit Reporton 02-26-2025 Corporate Receptionist Office Visit Report Normal [facility] Platelet countOrdered By: Mickey Diehl on 02-26-2025 Platelets (Bld) [#/Vol] 300 10*3/uL 150-450 [facility] RBC Auto (Bld) [#/Vol]Ordere d By: Edel Diehl on 02-26-2025 RBC (Bld) [#/Vol] 4.28 10*6/uL 4.2-5.4 [facility] Syphilis Antibodieson 2024 Syphilis Abs Non-Reactive Normal Nonreactive [facility] Comment on above: Performed By: #### B TS, L501.0250, L100.0100, L3890.6006, L509.8002 ####[facility] [address] [place], [place], [id number] Type AND Screenon 02-26-2025 ABO and Rh group Nom (Bld) Blood group B Rh(D) negative Normal [facility] Comment on above: Order Comment: PN Performed By: #### B TS, L501.0250, L100.0100, L3890.6006, L509.8002 ####[facility] [address] [place], [place], [id number] White blood cell (WBC) count Ordered By: Edel Diehl on 02-26-2025 WBC (Bld) [#/Vol] 11.8 10*3/uL High 4.4-11.0 [facility] Progress Noteon 02-23-2025 [employer] Authentication Interface Message Text MEDICAL DECISION MAKING: [...] concerns arise Patient was seen in [facility] cardiology clinic today at the request [...] there are questions regarding these findings. Normal [facility] Corporate Receptionist Office Visit Reporton 01-29-2025 Corporate Receptionist Office Visit Report Normal [facility] Laboratory - Chemistry and C hemistry - challengeOrdered By: Apple Lao on 01-01-2025 Glucose Ql (U) Negative [facility] Laboratory - UrinalysisOrder ed By: Apple Lao on 01-01-2025 Protein Ql (U) Negative [facility] Corporate Receptionist Office Visit Reporton 01-01-2025 Corporate Receptionist Office Visit Report Normal [facility] Corporate Receptionist Office Visit Reporton 12-03-2024 Corporate Receptionist Office Visit Report Normal [facility] 12 Lead EKGon 11-10-2024 12 Lead EKG Normal [facility] Absolute lymphocyte countOrd ered By: Ld Fermin on 11-10-2024 Lymphocytes Auto (Unsp spec) [#/Vol] 3.59 10*3/uL 0.83-4.51 [facility] Absolute neutrophil countOrd ered By: Ld Fermin on 11-10-2024 Neutrophils (Bld) [#/Vol] 9.3 10*3/uL High 2.0-7.7 [facility] Automated lymphocyte count a s percentage of total leukocytesOrdered By: Ld Fermin on 11-10-2024 Lymphocytes/100 WBC Auto (Unsp spec) 25.8 % 19-41 [facility] Basic Metabolic Profile (BMP )on 11-10-2024 BUN/CRE 8.8 RATIO Low 10-20 [facility] Comment on above: Performed By: #### L 100.0100, L500.2500 ####[facility] [address] [place], [address] CA,Total 9.9 mg/dL Normal 8.5-10.1 [facility] Comment on above: Performed By: #### L 100.0100, L500.2500 ####[facility] [address] [place], [address] Chloride [Moles/Vol] 108 mmol/L High 98-107 [facility] Comment on above: Performed By: #### L 100.0100, L500.2500 ####[facility] [address] [place], [address] CO2 [Moles/Vol] 24.0 mmol/L Normal 21.0-32.0 [facility] Comment on above: Performed By: #### L 100.0100, L500.2500 ####[facility] [address] [place], [address] Creatinine [Mass/Vol] 0.57 mg/dL Normal 0.55-1.02 [facility] Comment on above: Result Comment: The validity of the calculated GFR GFRAA in patients over70 years has not been determined. Clinical correlation isessential. Performed By: #### L 100.0100, L500.2500 ####[facility] [address] [place], [address] ECRCL 167.72 ml/min Normal [facility] Comment on above: Performed By: #### L 100.0100, L500.2500 ####[facility] [address] [place], [address] EST GFR - AA 157 mL/min Normal >60 [facility] Comment on above: Result Comment: Afri can Turk[place] GFR Calc Performed By: #### L 100.0100, L500.2500 ####[facility] [address] [place], [address] GAP 8 Normal 5-15 [facility] Comment on above: Performed By: #### L 100.0100, L500.2500 ####[facility] [address] [place], [address] GFR/1.73 sq M.predicted among non-blacks MDRD (S/P/Bld) [Vol rate/Area] 129 mL/min/{1.73_m2} Normal >60 [facility] Comment on above: Result Comment: Non- GFR Calc Performed By: #### L 100.0100, L500.2500 ####[facility] [address] [place], [address] Glucose [Mass/Vol] 86 mg/dL Normal 74-106 [facility] Comment on above: Performed By: #### L 100.0100, L500.2500 ####[facility] [address] [place], [address] Potassium [Moles/Vol] 3.4 mmol/L Low 3.5-5.1 [facility] Comment on above: Performed By: #### L 100.0100, L500.2500 ####[facility] [address] [place], [address] Sodium [Moles/Vol] 140 mmol/L Normal 136-145 [facility] Comment on above: Performed By: #### L 100.0100, L500.2500 ####[facility] [address] [place], [address] Urea nitrogen [Mass/Vol] 5 mg/dL Low 7-18 [facility] Comment on above: Performed By: #### L 100.0100, L500.2500 ####[facility] [address] [place], [address] Basophil percentageOrdered B y: Ld Fermin on 11-10-2024 Basophils/100 WBC (Bld) 0.5 % 0-1 [facility] Blood urea nitrogen (BUN)/cr eatinine ratioOrdered By: Ld Fermin on 11-10-2024 Urea nitrogen/Creatinine [Mass ratio] 8.8 mg/mg Low 10-20 [facility] CBC W/Diff, Automatedon 10-31 Absolute Lymph 3.59 X10 3/uL Normal 0.83-4.51 [facility] Comment on above: Performed By: #### L 100.0100, L500.2500 ####[facility] [address] [place], [address] Absolute Neut 9.3 X10 3/uL High 2.0-7.7 [facility] Comment on above: Performed By: #### L 100.0100, L500.2500 ####[facility] [address] [place], [address] Basophils/100 WBC (Bld) 0.5 % Normal 0-1 [facility] Comment on above: Performed By: #### L 100.0100, L500.2500 ####[facility] [address] [place], [address] Eosinophils/100 WBC (Bld) 1.2 % Normal 0-5 [facility] Comment on above: Performed By: #### L 100.0100, L500.2500 ####[facility] [address] [place], [address] Erythrocyte distribution width (RBC) [Ratio] 12.8 % Normal 11.6-14.6 [facility] Comment on above: Performed By: #### L 100.0100, L500.2500 ####[facility] [address] [place], [address] Hematocrit (Bld) [Volume fraction] 43.6 % Normal 37-47 [facility] Comment on above: Performed By: #### L 100.0100, L500.2500 ####[facility] [address] [place], [address] Hemoglobin (Bld) [Mass/Vol] 14.8 g/dL Normal 12.0-15.0 [facility] Comment on above: Performed By: #### L 100.0100, L500.2500 ####[facility] [address] [place], [address] IG% 0.600 Normal 0.0-0.9 [facility] Comment on above: Result Comment: IG% - Immature Granulocytes (promyelocytes, myelocytes andmetamyelocytes) > 1% indicates that a LEFT SHIFT is Present. Performed By: #### L 100.0100, L500.2500 ####[facility] [address] [place], [address] Lymphocytes/100 WBC (Bld) 25.8 % Normal 19-41 [facility] Comment on above: Performed By: #### L 100.0100, L500.2500 ####[facility] [address] [place], [address] MCH (RBC) [Entitic mass] 28.8 pg Normal 27.0-32.0 [facility] Comment on above: Performed By: #### L 100.0100, L500.2500 ####[facility] [address] [place], [address] MCHC (RBC) [Mass/Vol] 33.9 g/dL Normal 32-36 [facility] Comment on above: Performed By: #### L 100.0100, L500.2500 ####[facility] [address] [place], [address] MCV (RBC) [Entitic vol] 84.8 fL Normal 81-99 [facility] Comment on above: Performed By: #### L 100.0100, L500.2500 ####[facility] [address] [place], [address] Monocytes/100 WBC (Bld) 5.1 % Normal 0-10 [facility] Comment on above: Performed By: #### L 100.0100, L500.2500 ####[facility] [address] [place], [address] Neutrophils/100 WBC (Bld) 66.8 % Normal 47-70 [facility] Comment on above: Performed By: #### L 100.0100, L500.2500 ####[facility] [address] [place], [address] Nucleated RBC (Bld) [#/Vol] 0 10*3/uL Normal 0-5 [facility] Comment on above: Performed By: #### L 100.0100, L500.2500 ####[facility] [address] [place], [address] Platelet mean volume (Bld) [Entitic vol] 9.3 fL Normal 6.2-12.0 [facility] Comment on above: Performed By: #### L 100.0100, L500.2500 ####[facility] [address] [place], [address] Platelets (Bld) [#/Vol] 373 10*3/uL Normal 150-450 [facility] Comment on above: Performed By: #### L 100.0100, L500.2500 ####[facility] [address] [place], [address] RBC (Bld) [#/Vol] 5.14 10*6/uL Normal 4.2-5.4 [facility] Comment on above: Performed By: #### L 100.0100, L500.2500 ####[facility] [address] [place], [address] RDW SD 39.5 fl Normal 35.1-43.9 [facility] Comment on above: Performed By: #### L 100.0100, L500.2500 ####[facility] [address] [place], [address] WBC (Bld) [#/Vol] 13.9 10*3/uL High 4.4-11.0 [facility] Comment on above: Performed By: #### L 100.0100, L500.2500 ####[facility] [address] [place], [address] Carbon dioxide measurementOr dered By: Ld Fermin on 11-10-2024 CO2 [Moles/Vol] 24.0 mmol/L 21.0-32.0 [facility] Chloride measurementOrdered By: Ld Fermin on 11-10-2024 Chloride [Moles/Vol] 108 mmol/L High 98-107 [facility] D-Dimer Quantitative (DVT/PE )on 11-10-2024 D-DIMER QUANT < 0.27 Low 0.27-0.49 [facility] Comment on above: Result Comment: NORM AL D-Dimer level (<0.50) indicates no DVT or PE. Performed By: #### L 300.8000 ####[facility] [address] [place], [address] Emergency Department Summary on 11-10-2024 Emergency Department Summary Normal [facility] Eosinophil percentageOrdered By: Ldrebeka eFrmin on 11-10-2024 Eosinophils/100 WBC (Bld) 1.2 % 0-5 [facility] Erythrocyte distribution wid th ratioOrdered By: Ldrebeka Fermin on 11-10-2024 Erythrocyte distribution width (RBC) [Ratio] 12.8 % 11.6-14.6 [facility] Erythrocyte distribution wid th standard deviationOrdered By: Ldrebeka Fermin on 11-10-2024 Erythrocyte distribution width (RBC) [Ratio] 39.5 fl 35.1-43.9 [facility] Glomerular filtration rate ( GFR) estimationOrdered By: Ldrebeka Fermin on 11-10-2024 GFR/1.73 sq M.predicted among non-blacks MDRD (S/P/Bld) [Vol rate/Area] 129 mL/min/{1.73_m2} >60 [facility] Comment on above: Non- GFR Calc Glucose measurementOrdered B y: Ld Fermin on 11-10-2024 Glucose [Mass/Vol] 86 mg/dL 74-106 [facility] Hematocrit Auto (Bld) [Volum e fraction]Ordered By: Ldrebeka Fermin on 11-10-2024 Hematocrit (Bld) [Volume fraction] 43.6 % 37-47 [facility] Hemoglobin measurementOrdere d By: Ldrebeka Fermin on 11-10-2024 Hemoglobin (Bld) [Mass/Vol] 14.8 g/dL 12.0-15.0 [facility] Immature granulocytes/100 WB C Auto (Bld)Ordered By: Ldrebeka Fermin on 11-10-2024 Immature granulocytes/100 WBC (Bld) 0.600 % 0.0-0.9 [facility] Comment on above: IG% - Immature Granu locytes (promyelocytes, myelocytes and metamyelocytes) > 1% indicates that a LEFT SHIFT is Present. MCV (mean corpuscular volume ) determinationOrdered By: Ld Fermin on 11-10-2024 MCV (RBC) [Entitic vol] 84.8 fL 81-99 [facility] Mean corpuscular hemoglobin (MCH) determinationOrdered By: Ld Fermin on 11-10-2024 MCH (RBC) [Entitic mass] 28.8 pg 27.0-32.0 [facility] Mean corpuscular hemoglobin concentration (MCHC) determinationOrdered By: Ld Fermin on 11-10-2024 MCHC (RBC) [Mass/Vol] 33.9 g/dL 32-36 [facility] Mean platelet volume determi nationOrdered By: Ld Fermin on 11-10-2024 Platelet mean volume (Bld) [Entitic vol] 9.3 fL 6.2-12.0 [facility] Monocyte percentageOrdered B y: Ld Fermin on 11-10-2024 Monocytes/100 WBC (Bld) 5.1 % 0-10 [facility] Neutrophil percentageOrdered By: Ld Fermin on 11-10-2024 Neutrophils/100 WBC (Bld) 66.8 % 47-70 [facility] Nucleated red blood cell per centageOrdered By: Ld Fermin on 11-10-2024 Nucleated RBC/100 WBC (Bld) [Ratio] 0 % 0-5 [facility] Platelet countOrdered By: [facility] Fermin on 11-10-2024 Platelets (Bld) [#/Vol] 373 10*3/uL 150-450 [facility] Potassium measurementOrdered By: Ld Fermin on 11-10-2024 Potassium [Moles/Vol] 3.4 mmol/L Low 3.5-5.1 [facility] RBC Auto (Bld) [#/Vol]Ordere d By: Ld Fermin on 11-10-2024 RBC (Bld) [#/Vol] 5.14 10*6/uL 4.2-5.4 [facility] Serum anion gap measurementO rdered By: Ld Fermin on 11-10-2024 Anion gap [Moles/Vol] 8 mmol/L 5-15 [facility] Serum or plasma calcium kenisha urement (mass/volume)Ordered By: Ld Fermin on 11-10-2024 Calcium [Mass/Vol] 9.9 mg/dL 8.5-10.1 [facility] Serum or plasma creatinine m easurement (mass/volume)Ordered By: Ld Fermin on 11-10-2024 Creatinine [Mass/Vol] 0.57 mg/dL 0.55-1.02 [facility] Comment on above: The validity of the calculated GFR & GFRAA in patients over 70 years has not been determined. Clinical correlation is essential. Serum or plasma urea nitroge n measurement (mass/volume)Ordered By: Ld Fermin on 11-10-2024 Urea nitrogen [Mass/Vol] 5 mg/dL Low 7-18 [facility] Sodium levelOrdered By: Ld Fermin on 11-10-2024 Sodium [Moles/Vol] 140 mmol/L 136-145 [facility] White blood cell (WBC) count Ordered By: Ld Fermin on 11-10-2024 WBC (Bld) [#/Vol] 13.9 10*3/uL High 4.4-11.0 [facility] Laboratory - Chemistry and C hemistry - challengeOrdered By: Edel Diehl on 11-05-2024 Glucose Ql (U) Negative [facility] Laboratory - UrinalysisOrder ed By: Edel Diehl on 11-05-2024 Protein Ql (U) Negative [facility] Corporate Receptionist Office Visit Reporton 11-05-2024 Corporate Receptionist Office Visit Report Normal [facility] HIV - WCHon 10-13-2024 HIV Non-Reactive Normal Nonreactive [facility] Comment on above: Order Comment: Reaso n for Exam: Performed By: #### L 3890.6005, L3890.6300, L506.0400, L509.8000, L3410.9999, L501.9985, BTS, L3890.6100, L501.9520, L100.0100, L509.4005 ####[facility] [address] [place], [place], [address] L3410.9999on 10-13-2024 [facility] Misc. COMMENT Normal . [facility] Comment on above: Order Comment: 12457 4TSH RECEPTOR AB SERUM RF Result Comment: Test Ordered: [id number] Thyrotropin Receptor Ab, SerumThyrotropin Receptor Ab, Serum <1.10 IU/L Reference Range: 0.00-1.75Performed at: [facility] [address] [id number] Director: Sue Martinez MD, Phone: [phone] at: [facility] [id number] [place], [place] [id number] Director: Huan Kuhn PhD, Phone: [phone] Performed By: #### L 3890.6005, L3890.6300, L506.0400, L509.8000, L3410.9999, L501.9985, BTS, L3890.6100, L501.9520, L100.0100, L509.4005 ####[facility] [address] [place], [address] Chlamydia/GC CONCHITA aptimaon CHLAMY,NUC ACID Negative Normal Negative [facility] Comment on above: Performed By: #### L 505.5000, L7000.1800, M100.2200 ####[facility] [address] [place], [address] GC BY NUC ACID Negative Normal Negative [facility] Comment on above: Result Comment: Perf ormed at: = - [address] [id number] Director: Ary Grider MD, Phone: [phone] Performed By: #### L 505.5000, L7000.1800, M100.2200 ####[facility] [address] [place], [address] Hepatitis B Surface Antigeno n 10-12-2024 HEP B Surf Ag Non-Reactive Normal Nonreactive [facility] Comment on above: Order Comment: Reaso n for Exam: Performed By: #### L 3890.6005, L3890.6300, L506.0400, L509.8000, L3410.9999, L501.9985, BTS, L3890.6100, L501.9520, L100.0100, L509.4005 ####[facility] [address] [place], [address] Hepatitis C Antibodyon 10-12 Hepatitis C AB Non-Reactive Normal Nonreactive [facility] Comment on above: Order Comment: Reaso n for Exam: Result Comment: Non Reactive: < 0.8 Equivocal: >/= 0.8 to < 1.0 Reactive: >/= 1.0The [facility] requires that a reactive/equivocal HCV antibodyresult be sent out for confirmation. HCV Quant by PCRtesting. Performed By: #### L 3890.6005, L3890.6300, L506.0400, L509.8000, L3410.9999, L501.9985, BTS, L3890.6100, L501.9520, L100.0100, L509.4005 ####[facility] [address] [place], [address] L509.8000on 10-12-2024 Syphilis Abs Non-Reactive Normal [facility] Comment on above: Order Comment: Reaso n for Exam: Performed By: #### L 3890.6005, L3890.6300, L506.0400, L509.8000, L3410.9999, L501.9985, BTS, L3890.6100, L501.9520, L100.0100, L509.4005 ####[facility] [address] [place], [place], [id number] Rubella IgGon 10-12-2024 Rubella IgG Reactive Normal Nonreactive [facility] Comment on above: Order Comment: Reaso n for Exam: Result Comment: Anti body Results Interpretation of Immune Status Non Reactive Presumed Non-Immune Equivocal Equivocal Reactive Presumed Immune Performed By: #### L 3890.6005, L3890.6300, L506.0400, L509.8000, L3410.9999, L501.9985, BTS, L3890.6100, L501.9520, L100.0100, L509.4005 ####[facility] [address] [place], [address] Urine Cultureon 10-12-2024 [facility] Mixed Gram Positive Organisms [place] Count 25,000-50,000 MIXC Mixed contaminants. Submit a new specimen if indicated. Normal [facility] Comment on above: Performed By: #### L 505.5000, L7000.1800, M100.2200 ####[facility] [address] [place], [address] CBC W/Diff, Automatedon 09-30 Absolute Lymph 2.85 X10 3/uL Normal 0.83-4.51 [facility] Comment on above: Performed By: #### L 3890.6005, L3890.6300, L506.0400, L509.8000, L3410.9999, L501.9985, BTS, L3890.6100, L501.9520, L100.0100, L509.4005 ####[facility] [address] [place], [address] Absolute Neut 10.8 X10 3/uL High 2.0-7.7 [facility] Comment on above: Performed By: #### L 3890.6005, L3890.6300, L506.0400, L509.8000, L3410.9999, L501.9985, BTS, L3890.6100, L501.9520, L100.0100, L509.4005 ####[facility] [address] [place], [address] Basophils/100 WBC (Bld) 0.5 % Normal 0-1 [facility] Comment on above: Performed By: #### L 3890.6005, L3890.6300, L506.0400, L509.8000, L3410.9999, L501.9985, BTS, L3890.6100, L501.9520, L100.0100, L509.4005 ####[facility] [address] [place], [address] Eosinophils/100 WBC (Bld) 1.4 % Normal 0-5 [facility] Comment on above: Performed By: #### L 3890.6005, L3890.6300, L506.0400, L509.8000, L3410.9999, L501.9985, BTS, L3890.6100, L501.9520, L100.0100, L509.4005 ####[facility] [address] [place], [place], [phone] Erythrocyte distribution width (RBC) [Ratio] 12.8 % Normal 11.6-14.6 [facility] Comment on above: Performed By: #### L 3890.6005, L3890.6300, L506.0400, L509.8000, L3410.9999, L501.9985, BTS, L3890.6100, L501.9520, L100.0100, L509.4005 ####[facility] [address] [place], [place], [phone] Hematocrit (Bld) [Volume fraction] 41.2 % Normal 37-47 [facility] Comment on above: Performed By: #### L 3890.6005, L3890.6300, L506.0400, L509.8000, L3410.9999, L501.9985, BTS, L3890.6100, L501.9520, L100.0100, L509.4005 ####[facility] [address] [place], [address] Hemoglobin (Bld) [Mass/Vol] 14.1 g/dL Normal 12.0-15.0 [facility] Comment on above: Performed By: #### L 3890.6005, L3890.6300, L506.0400, L509.8000, L3410.9999, L501.9985, BTS, L3890.6100, L501.9520, L100.0100, L509.4005 ####[facility] [address] [place], [address] IG% 0.500 Normal 0.0-0.9 [facility] Comment on above: Result Comment: IG% - Immature Granulocytes (promyelocytes, myelocytes andmetamyelocytes) > 1% indicates that a LEFT SHIFT is Present. Performed By: #### L 3890.6005, L3890.6300, L506.0400, L509.8000, L3410.9999, L501.9985, BTS, L3890.6100, L501.9520, L100.0100, L509.4005 ####[facility] [address] [place], [address] Lymphocytes/100 WBC (Bld) 19.2 % Normal 19-41 [facility] Comment on above: Performed By: #### L 3890.6005, L3890.6300, L506.0400, L509.8000, L3410.9999, L501.9985, BTS, L3890.6100, L501.9520, L100.0100, L509.4005 ####[facility] [address] [place], [address] MCH (RBC) [Entitic mass] 28.8 pg Normal 27.0-32.0 [facility] Comment on above: Performed By: #### L 3890.6005, L3890.6300, L506.0400, L509.8000, L3410.9999, L501.9985, BTS, L3890.6100, L501.9520, L100.0100, L509.4005 ####[facility] [address] [place], [address] MCHC (RBC) [Mass/Vol] 34.2 g/dL Normal 32-36 [facility] Comment on above: Performed By: #### L 3890.6005, L3890.6300, L506.0400, L509.8000, L3410.9999, L501.9985, BTS, L3890.6100, L501.9520, L100.0100, L509.4005 ####[facility] [address] [place], [address] MCV (RBC) [Entitic vol] 84.1 fL Normal 81-99 [facility] Comment on above: Performed By: #### L 3890.6005, L3890.6300, L506.0400, L509.8000, L3410.9999, L501.9985, BTS, L3890.6100, L501.9520, L100.0100, L509.4005 ####[facility] [address] [place], [address] Monocytes/100 WBC (Bld) 5.2 % Normal 0-10 [facility] Comment on above: Performed By: #### L 3890.6005, L3890.6300, L506.0400, L509.8000, L3410.9999, L501.9985, BTS, L3890.6100, L501.9520, L100.0100, L509.4005 ####[facility] [address] [place], [address] Neutrophils/100 WBC (Bld) 73.2 % High 47-70 [facility] Comment on above: Performed By: #### L 3890.6005, L3890.6300, L506.0400, L509.8000, L3410.9999, L501.9985, BTS, L3890.6100, L501.9520, L100.0100, L509.4005 ####[facility] [address] [place], [address] Nucleated RBC (Bld) [#/Vol] 0 10*3/uL Normal 0-5 [facility] Comment on above: Performed By: #### L 3890.6005, L3890.6300, L506.0400, L509.8000, L3410.9999, L501.9985, BTS, L3890.6100, L501.9520, L100.0100, L509.4005 ####[facility] [address] [place], [address] Platelet mean volume (Bld) [Entitic vol] 9.1 fL Normal 6.2-12.0 [facility] Comment on above: Performed By: #### L 3890.6005, L3890.6300, L506.0400, L509.8000, L3410.9999, L501.9985, BTS, L3890.6100, L501.9520, L100.0100, L509.4005 ####[facility] [address] [place], [address] Platelets (Bld) [#/Vol] 417 10*3/uL Normal 150-450 [facility] Comment on above: Performed By: #### L 3890.6005, L3890.6300, L506.0400, L509.8000, L3410.9999, L501.9985, BTS, L3890.6100, L501.9520, L100.0100, L509.4005 ####[facility] [address] [place], [address] RBC (Bld) [#/Vol] 4.90 10*6/uL Normal 4.2-5.4 [facility] Comment on above: Performed By: #### L 3890.6005, L3890.6300, L506.0400, L509.8000, L3410.9999, L501.9985, BTS, L3890.6100, L501.9520, L100.0100, L509.4005 ####[facility] [address] [place], [address] RDW SD 39.1 fl Normal 35.1-43.9 [facility] Comment on above: Performed By: #### L 3890.6005, L3890.6300, L506.0400, L509.8000, L3410.9999, L501.9985, BTS, L3890.6100, L501.9520, L100.0100, L509.4005 ####[facility] [address] [place], [place], [id number] WBC (Bld) [#/Vol] 14.8 10*3/uL High 4.4-11.0 [facility] Comment on above: Performed By: #### L 3890.6005, L3890.6300, L506.0400, L509.8000, L3410.9999, L501.9985, BTS, L3890.6100, L501.9520, L100.0100, L509.4005 ####[facility] [address] [place], [place], [id number] Hemoglobin A1con 10-09-2024 HbA1c (Bld) [Mass fraction] 5.2 % Normal 3.8-5.6 [facility] Comment on above: Result Comment: Norm al < 5.7 % Prediabetic 5.7 - 6.4 % Diabetic >or= 6.5 % Please note range changes. Performed By: #### L 3890.6005, L3890.6300, L506.0400, L509.8000, L3410.9999, L501.9985, BTS, L3890.6100, L501.9520, L100.0100, L509.4005 ####[facility] [address] [place], [place], [id number] Corporate Receptionist Office Visit Reporton 10-09-2024 Corporate Receptionist Office Visit Report Normal [facility] T4 Free Directon 10-09-2024 T4 FREE DIRECT 1.29 ng/dL Normal 0.76-1.46 [facility] Comment on above: Performed By: #### L 3890.6005, L3890.6300, L506.0400, L509.8000, L3410.9999, L501.9985, BTS, L3890.6100, L501.9520, L100.0100, L509.4005 ####[facility] [address] [place], [address] Thyroid Stim Hormone (TSH)on 10-09-2024 TSH 1.180 uIU/mL Normal 0.358-3.740 [facility] Comment on above: Performed By: #### L 3890.6005, L3890.6300, L506.0400, L509.8000, L3410.9999, L501.9985, BTS, L3890.6100, L501.9520, L100.0100, L509.4005 ####[facility] [address] [place], [address] Type AND Screenon 10-09-2024 Ab SCREEN GEL Negative Normal [facility] Comment on above: Order Comment: PN Performed By: #### L 3890.6005, L3890.6300, L506.0400, L509.8000, L3410.9999, L501.9985, BTS, L3890.6100, L501.9520, L100.0100, L509.4005 ####[facility] [address] [place], [address] Urine Drug Screen (VISTA)on 10-09-2024 AMPHETAMINES Negative Normal <1000 ng/mL [facility] Comment on above: Order Comment: UNK Performed By: #### L 505.5000, L7000.1800, M100.2200 ####[facility] [address] [place], [address] BARBITIURATES Negative Normal < 200 ng/mL [facility] Comment on above: Order Comment: UNK Performed By: #### L 505.5000, L7000.1800, M100.2200 ####[facility] [address] [place], [address] BENZODIAZIPINE Negative Normal < 200 ng/mL [facility] Comment on above: Order Comment: UNK Performed By: #### L 505.5000, L7000.1800, M100.2200 ####[facility] [address] [place], [address] COCAINE Negative Normal < 300 ng/mL [facility] Comment on above: Order Comment: UNK Performed By: #### L 505.5000, L7000.1800, M100.2200 ####[facility] [address] [place], [address] ECSTACY Negative Normal < 500 ng/mL [facility] Comment on above: Order Comment: UNK Performed By: #### L 505.5000, L7000.1800, M100.2200 ####[facility] [address] [place], [address] METHADONE Negative Normal < 300 ng/mL [facility] Comment on above: Order Comment: UNK Performed By: #### L 505.5000, L7000.1800, M100.2200 ####[facility] [address] [place], [address] OPIATES Negative Normal < 300 ng/mL [facility] Comment on above: Order Comment: UNK Performed By: #### L 505.5000, L7000.1800, M100.2200 ####[facility] [address] [place], [address] PCP Negative Normal < 25 ng/mL [facility] Comment on above: Order Comment: UNK Performed By: #### L 505.5000, L7000.1800, M100.2200 ####[facility] [address] [place], [address] THC Negative Normal < 50 ng/mL [facility] Comment on above: Order Comment: UNK Performed By: #### L 505.5000, L7000.1800, M100.2200 ####[facility] [address] [place], [address] VISTA UDS PH 6 Normal [facility] Comment on above: Order Comment: UNK Performed By: #### L 505.5000, L7000.1800, M100.2200 ####[facility] [address] [place], [address] Choriogonadotropin.beta subu niton 10-02-2024 [place] [address] m[IU]/mL High <[address] [facility] Comment on above: Order Comment: Total HCG measurement is performed using the [employer] Access Immunoassay which detects intact HCG and free beta HCG subunit. This test is not indicated for use as a tumor marker. HCG testing is performed using a different test methodology at [facility] than other [facility]. Direct result comparison should only be [...] By: #### 3 4549-6 #### DWAYNE Nair ([id number]) [facility] ([facility]) [address] [place] [address] Estradiolon 10-02-2024 E2 [Mass/Vol] 506 pg/mL Normal [facility] Comment on above: Order Comment: REF V ALUESFOLLICULAR PHASE 20-144MID CYCLE 64-357LUTEAL PHASE 56-214POSTMENOPAUSE < 32PREPUBERTY < 20FEMALE 10-18Y 8-110MALE 10-18Y < 20ADULT MALE < 40 Performed By: #### 3 4549-6 #### DWAYNE Nair ([id number]) [facility] ([facility]) [address] [place], [place] [id number] Progesteroneon 10-02-2024 Progesterone [Mass/Vol] 26.5 ng/mL Normal [facility] Comment on above: Result Comment: Ref Values Male <0.3- 1.2 Follicular Phase <0.3- 1.4 Luteal Phase 3.3-25.6 Mid-Luteal Phase 4.4-28.0 Postmenopausal <0.3- 0.7 Females: 1st Trimester 11.2- 90.0 2nd Trimester 25.6- 89.4 3RD Trimester 48.4-422.5 Patients receiving DHEA-S supplements may show false elevation of progesterone for results near 1.0 ng/mL. Contact laboratory at [phone] if alternative testing is needed. Performed By: #### 3 4549-6 #### DWAYNE Nair ([id number]) [facility] ([facility]) [address] [place] [address] US PELVIS OB TRANSABDOMINAL W TRANSVAGINAL UP TO 1ST TRIMESTERon 10-02-2024 US PELVIS OB TRANSABDOMINAL W TRANSVAGINAL UP TO 1ST TRIMESTER Interpreted By: Dyllan De Jesus, STUDY: US PELVIS OB TRANSABDOMINAL W TRANSVAGINAL UP TO 1ST TRIMESTER; 10/02/2024 9:55 am INDICATION: Signs/Symptoms:PREGN RADHA. COMPARISON: None. ACCESSION NUMBER(S): [id number] ORDERING CLINICIAN: LEVON BRAXTON TECHNIQUE: Multiple grayscale [...] days +/-3 days. MACRO: None Signed by: Dylaln De Jesus 10/02/2024 11:52 AM Dictation workstation: [id number] [facility] US Pelvis transvaginalon 1. Single live intrauterine . 2. Estimated gestational age: 6 weeks 2 days +/-3 days. MACRO: None Signed by: Dyllan De Jesus 10/02/2024 11:52 AM Dictation workstation: [id number] [facility] Interpreted By: Dyllan De Jesus, STUDY: US PELVIS OB TRANSABDOMINAL W TRANSVAGINAL UP TO 1ST TRIMESTER; 10/02/2024 9:55 am INDICATION: Signs/Symptoms:PREGN RADHA. COMPARISON: None. ACCESSION NUMBER(S): [id number] ORDERING CLINICIAN: LEVON BRAXTON TECHNIQUE: Multiple grayscale [...] 1.7 x 3.6 cm FREE FLUID: None. [facility] Dyllan De Jesus MD - 10/02/2024 Interpreted By: Dyllan De Jesus, STUDY: US PELVIS OB TRANSABDOMINAL W TRANSVAGINAL UP TO 1ST TRIMESTER; 10/02/2024 9:55 am INDICATION: Signs/Symptoms:PREGN RADHA. COMPARISON: None. ACCESSION NUMBER(S): [id number] ORDERING CLINICIAN: LEVON BRAXTON TECHNIQUE: Multiple grayscale [...] De Jesus 10/02/2024 11:52 AM Dictation workstation: [id number] [facility] Work Phone: Radiology Study observation (narrative) [facility] Work Phone: US Pelvis transvaginalOrdere d By: Dyllan De Jesus on 10-02-2024 [facility] Work Phone: Choriogonadotropin.beta subu niton 09-25-2024 [place] [address] m[IU]/mL High <[address] [facility] Comment on above: Order Comment: Needs to go with a stat validation manager Total HCG measurement is performed using the [employer] Access Immunoassay which detects intact HCG and free beta HCG subunit. This test is not indicated for use as a tumor marker. HCG testing is performed using a different test methodology at [facility] than other [facility]. Direct result comparison should only be [...] By: #### 3 4549-6 #### DWAYNE Nair ([id number]) [facility] ([facility]) [id number] [place] [id number] Estradiolon 09-25-2024 E2 [Mass/Vol] 423 pg/mL Normal [facility] Comment on above: Order Comment: Needs to go with a stat courierREF VALUESFOLLICULAR PHASE 20-144MID CYCLE 64-357LUTEAL PHASE 56-214POSTMENOPAUSE < 32PREPUBERTY < 20FEMALE 10-18Y 8-110MALE 10-18Y < 20ADULT MALE < 40 Performed By: #### 3 4549-6 #### DWAYNE Nair ([id number]) [facility] ([facility]) [address] [place] [id number] Progesteroneon 09-25-2024 Progesterone [Mass/Vol] 37.3 ng/mL Normal [facility] Comment on above: Order Comment: Needs to go with a stat validation manager Result Comment: Ref Values Male <0.3- 1.2 Follicular Phase <0.3- 1.4 Luteal Phase 3.3-25.6 Mid-Luteal Phase 4.4-28.0 Postmenopausal <0.3- 0.7 Females: 1st Trimester 11.2- 90.0 2nd Trimester 25.6- 89.4 3RD Trimester 48.4-422.5 Patients receiving DHEA-S supplements may show false elevation of progesterone for results near 1.0 ng/mL. Contact laboratory at [phone] if alternative testing is needed. Performed By: #### 3 4549-6 #### DWAYNE Nair ([id number]) [facility] ([facility]) [address] [place] [address] US PELVIS OB TRANSABDOMINAL W TRANSVAGINAL UP TO 1ST TRIMESTERon 09-25-2024 US PELVIS OB TRANSABDOMINAL W TRANSVAGINAL UP TO 1ST TRIMESTER Interpreted By: Dyllan De Jesus, STUDY: US PELVIS OB TRANSABDOMINAL W TRANSVAGINAL UP TO 1ST TRIMESTER; 09/25/2024 9:44 am INDICATION: Signs/Symptoms:POSIT MANUEL TEST. COMPARISON: None. ACCESSION NUMBER(S): [id number] ORDERING CLINICIAN: LEVON BRAXTON TECHNIQUE: Multiple grayscale [...] De Jesus 09/25/2024 10:40 AM Dictation workstation: [id number] [facility] US Pelvis transvaginalon 1. Single intrauterine [...] De Jesus 09/25/2024 10:40 AM Dictation workstation: [id number] Interpreted By: Dyllan De Jesus, STUDY: US PELVIS OB TRANSABDOMINAL W TRANSVAGINAL UP TO 1ST TRIMESTER; 09/25/2024 9:44 am INDICATION: Signs/Symptoms:POSIT MANUEL TEST. COMPARISON: None. ACCESSION NUMBER(S): [id number] ORDERING CLINICIAN: LEVON BRAXTON TECHNIQUE: Multiple grayscale [...] Signs/Symptoms:POSIT MANUEL TEST. COMPARISON: None. ACCESSION NUMBER(S): [id number] ORDERING CLINICIAN: LEVON BRAXTON TECHNIQUE: Multiple grayscale [...] De Jesus 09/25/2024 10:40 AM Dictation workstation: [id number] [facility] Work Phone: Radiology Study observation (narrative) [facility] Work Phone: US Pelvis transvaginalOrdere d By: Dyllan De Jesus on 09-25-2024 [facility] Work Phone: Choriogonadotropin.beta subu niton 09-15-2024 HCG.beta subunit Qn 889 m[IU]/mL High <5 [facility] Comment on above: Order Comment: Stat, send with validation manager Total HCG measurement is performed using the Tutu Lindstrom Access Immunoassay which detects intact HCG and free beta HCG subunit. This test is not indicated for use as a tumor marker. HCG testing is performed using a different test methodology at [facility] than other [facility]. Direct result comparison should only be [...] By: #### 3 4549-6 #### DWAYNE Nair ([id number]) [facility] ([facility]) [address] [place] [address] Estradiolon 09-15-2024 E2 [Mass/Vol] 492 pg/mL Normal [facility] Comment on above: Order Comment: Stat, send with courierREF VALUESFOLLICULAR PHASE 20-144MID CYCLE 64-357LUTEAL PHASE 56-214POSTMENOPAUSE < 32PREPUBERTY < 20FEMALE 10-18Y 8-110MALE 10-18Y < 20ADULT MALE < 40 Performed By: #### 3 4549-6 #### DWAYNE Nair ([id number]) [facility] ([facility]) [address] [place] [address] Progesteroneon 09-15-2024 Progesterone [Mass/Vol] 31.2 ng/mL Normal [facility] Comment on above: Order Comment: Stat, send with validation manager Result Comment: Ref Values Male <0.3- 1.2 Follicular Phase <0.3- 1.4 Luteal Phase 3.3-25.6 Mid-Luteal Phase 4.4-28.0 Postmenopausal <0.3- 0.7 Females: 1st Trimester 11.2- 90.0 2nd Trimester 25.6- 89.4 3RD Trimester 48.4-422.5 Patients receiving DHEA-S supplements may show false elevation of progesterone for results near 1.0 ng/mL. Contact laboratory at [phone] if alternative testing is needed. Performed By: #### 3 4549-6 #### DWAYNE Nair ([id number]) [facility] ([facility]) [id number] [place] [address] Choriogonadotropin.beta subu niton 09-11-2024 HCG.beta subunit Qn 195 m[IU]/mL High <5 [facility] Comment on above: Order Comment: [...] By: #### 2 243-4 #### DWAYNE Nair ([id number]) [facility] ([facility]) [address] [place] [address] Estradiolon 09-11-2024 E2 [Mass/Vol] 347 pg/mL Normal [facility] Comment on above: Order Comment: REF V ALUES FOLLICULAR PHASE 20-144 MID CYCLE 64-357 LUTEAL PHASE 56-214 POSTMENOPAUSE < 32 PREPUBERTY < 20 FEMALE 10-18Y 8-110 MALE 10-18Y < 20 ADULT MALE < 40 Performed By: #### 2 243-4 #### DWAYNE Nair ([id number]) [facility] ([facility]) [address] [place] [address] Progesteroneon 09-11-2024 Progesterone [Mass/Vol] 43.6 ng/mL Normal [facility] Comment on above: Order Comment: Send with stat validation manager Result Comment: Ref Values Male <0.3- 1.2 Follicular Phase <0.3- 1.4 Luteal Phase 3.3-25.6 Mid-Luteal Phase 4.4-28.0 Postmenopausal <0.3- 0.7 Females: 1st Trimester 11.2- 90.0 2nd Trimester 25.6- 89.4 3RD Trimester 48.4-422.5 Patients receiving DHEA-S supplements may show false elevation of progesterone for results near 1.0 ng/mL. Contact laboratory at [phone] if alternative testing is needed. Performed By: #### 3 4549-6 #### DWAYNE Nair ([id number]) [facility] ([facility]) [address] [place] [address] Thyrotropinon 09-11-2024 TSH Qn 2.28 m[IU]/L Normal 0.44-3.98 [facility] Comment on above: Order Comment: REF V ALUES FOLLICULAR PHASE 20-144 MID CYCLE 64-357 LUTEAL PHASE 56-214 POSTMENOPAUSE < 32 PREPUBERTY < 20 FEMALE 10-18Y 8-110 MALE 10-18Y < 20 ADULT MALE < 40 Performed By: #### 2 243-4 #### DWAYNE Nair ([id number]) [facility] ([facility]) [address] [place] [address] Choriogonadotropin.beta subu niton 09-09-2024 HCG.beta subunit Qn 101 m[IU]/mL High <5 [facility] Comment on above: Order Comment: [...] By: #### 2 243-4 #### DWAYNE Nair ([id number]) [facility] ([facility]) [address] [place] [address] Progesteroneon 09-09-2024 Progesterone [Mass/Vol] 31.9 ng/mL Normal [facility] Comment on above: Order Comment: REF [...] results near 1.0 ng/mL. Contact laboratory at [phone] if alternative testing is needed. Performed By: #### 2 243-4 #### DWAYNE Nair ([id number]) [facility] ([facility]) [address] [place] [address] Estradiolon 09-04-2024 E2 [Mass/Vol] 222 pg/mL Normal [facility] Comment on above: Order Comment: REF V ALUES FOLLICULAR PHASE 20-144 MID CYCLE 64-357 LUTEAL PHASE 56-214 POSTMENOPAUSE < 32 PREPUBERTY < 20 FEMALE 10-18Y 8-110 MALE 10-18Y < 20 ADULT MALE < 40 Performed By: #### 2 243-4 #### DWAYNE Nair ([id number]) [facility] ([facility]) [address] [place] [address] Progesteroneon 09-04-2024 Progesterone [Mass/Vol] 33.6 ng/mL Normal [facility] Comment on above: Result Comment: Ref Values Male <0.3- 1.2 Follicular Phase <0.3- 1.4 Luteal Phase 3.3-25.6 Mid-Luteal Phase 4.4-28.0 Postmenopausal <0.3- 0.7 Females: 1st Trimester 11.2- 90.0 2nd Trimester 25.6- 89.4 3RD Trimester 48.4-422.5 Patients receiving DHEA-S supplements may show false elevation of progesterone for results near 1.0 ng/mL. Contact laboratory at [phone] if alternative testing is needed. Performed By: #### 2 243-4 #### DWAYNE Nair ([id number]) [facility] ([facility]) [address] [place] [address] Progesteroneon 08-25-2024 Progesterone [Mass/Vol] 0.5 ng/mL Normal [facility] Comment on above: Order Comment: REF V [...] results near 1.0 ng/mL. Contact laboratory at [phone] if alternative testing is needed. Performed By: #### 2 243-4 #### DWAYNE Nair ([id number]) [facility] ([facility]) [address] [place] [address] Estradiolon 08-21-2024 E2 [Mass/Vol] 427 pg/mL Normal [facility] Comment on above: Order Comment: REF V ALUES FOLLICULAR PHASE 20-144 MID CYCLE 64-357 LUTEAL PHASE 56-214 POSTMENOPAUSE < 32 PREPUBERTY < 20 FEMALE 10-18Y 8-110 MALE 10-18Y < 20 ADULT MALE < 40 Performed By: #### 2 243-4 #### DWAYNE Nair ([id number]) [facility] ([facility]) [address] [place] [address] Lutropinon 08-21-2024 Lutropin Qn 11.4 IU/L Normal [facility] Comment on above: Result Comment: LH R eference Values Follicular Phase 1.9-12.5 IU/L Mid-Cycle 8.7-76.3 IU/L Luteal Phase 0.5-16.9 IU/L Post Menopause 5.0-55.2 IU/L Children 0- 6.0 IU/L Adult Male 18-70 years 1.5- 9.3 IU/L Adult Male >70 years 3.1-34.6 IU/L Performed By: #### 2 1198-7 #### SHAUNA ROBISON ([id number]) [facility]) [address] [place] [address] Progesteroneon 08-21-2024 Progesterone [Mass/Vol] 0.6 ng/mL Normal [facility] Comment on above: Result Comment: Ref Values Male <0.3- 1.2 Follicular Phase <0.3- 1.4 Luteal Phase 3.3-25.6 Mid-Luteal Phase 4.4-28.0 Postmenopausal <0.3- 0.7 Females: 1st Trimester 11.2- 90.0 2nd Trimester 25.6- 89.4 3RD Trimester 48.4-422.5 Patients receiving DHEA-S supplements may show false elevation of progesterone for results near 1.0 ng/mL. Contact laboratory at [phone] if alternative testing is needed. Performed By: #### 2 243-4 #### DWAYNE Nair ([id number]) [facility] ([facility]) [address] [place] [address] US PELVIS TRANSABDOMINAL WIT H TRANSVAGINALon 08-21-2024 US PELVIS TRANSABDOMINAL WITH TRANSVAGINAL Interpreted By: Jeremy Brower, STUDY: US PELVIS TRANSABDOMINAL WITH TRANSVAGINAL; 08/21/2024 8:38 am INDICATION: Signs/Symptoms:ROMULO PABLO ,Z31.83 Encounter for assisted reproductive fertility procedure cycle COMPARISON: 08/14/2024 ACCESSION NUMBER(S): [id number] ORDERING CLINICIAN: LEVON BRAXTON TECHNIQUE: Multiple multiplanar [...] Jeremy Brower 08/22/2024 10:52 AM Dictation workstation: [id number] [facility] Choriogonadotropin.beta subu niton 08-14-2024 HCG.beta subunit Qn m[IU]/mL Normal <5 [facility] Comment on above: Order Comment: Total HCG measurement is performed using the Tutu Lindstrom Access Immunoassay which detects intact HCG and free beta HCG subunit. This test is not indicated for use as a tumor marker. HCG testing is performed using a different test methodology at [facility] than [facility]. Direct result comparison should only be made within the same method. Performed By: #### 2 1198-7 #### SHAUNA ROBISON ([id number]) [facility] ([facility]) [address] [place] [address] Estradiolon 08-14-2024 E2 [Mass/Vol] 42 pg/mL [facility] Comment on above: Order Comment: Total HCG measurement is performed using the Tutu Lindstrom Access Immunoassay which detects intact HCG and free beta HCG subunit. This test is not indicated for use as a tumor marker. HCG testing is performed using a different test methodology at [facility] than [facility]. Direct result comparison should only be made within the same method. Performed By: #### 2 1198-7 #### SHAUNA ROBISON ([id number]) [facility]) [address] [place] [address] Follitropin and Lutropin rhoades el Qnon 08-14-2024 Follitropin Qn 6.4 IU/L [facility] Comment on above: Order Comment: Total HCG measurement is performed using the Tutu Nestor Access Immunoassay which detects intact HCG and free beta HCG subunit. This test is not indicated for use as a tumor marker. HCG testing is performed using a different test methodology at [facility] than [facility]. Direct result comparison should only be made within the same method. Result Comment: [facility] Ref Values Follicular 2.0-12.0 IU/L Mid-Cycle 12.0-25.0 IU/L Luteal Phase 2.0-12.0 IU/L Menopause 30.0-150.0 IU/L Pre-puberty 50% Adult IU/L Adult Male 2.0-10.0 IU/L Infants 0.0-1.0 IU/L Performed By: #### 2 1198-7 #### SHAUNA ROBISON ([id number]) [facility] ([facility]) [facility] [place] [address] Lutropin Qn 5.0 IU/L Normal [facility] Comment on above: Order Comment: Total HCG measurement is performed using the Tutu Floobits Access Immunoassay which detects intact HCG and free beta HCG subunit. This test is not indicated for use as a tumor marker. HCG testing is performed using a different test methodology at [facility] than other [facility]. Direct result comparison should only be made within the same method. Result Comment: LH R eference Values Follicular Phase 1.9-12.5 IU/L Mid-Cycle 8.7-76.3 IU/L Luteal Phase 0.5-16.9 IU/L Post Menopause 5.0-55.2 IU/L Children 0- 6.0 IU/L Adult Male 18-70 years 1.5- 9.3 IU/L Adult Male >70 years 3.1-34.6 IU/L Performed By: #### 2 1198-7 #### SHAUNA ROBISON ([id number]) [facility] ([facility]) [facility] [place] [address] Progesteroneon 08-14-2024 Progesterone [Mass/Vol] 0.5 ng/mL Normal [facility] Comment on above: Order Comment: Total HCG measurement is performed using the Tutu Nestor Access Immunoassay which detects intact HCG and free beta HCG subunit. This test is not indicated for use as a tumor marker. HCG testing is performed using a different test methodology at [facility] than other [facility]. Direct result comparison should only be made within the same method. Result Comment: Ref Values Male <0.3- 1.2 Follicular Phase <0.3- 1.4 Luteal Phase 3.3-25.6 Mid-Luteal Phase 4.4-28.0 Postmenopausal <0.3- 0.7 Females: 1st Trimester 11.2- 90.0 2nd Trimester 25.6- 89.4 3RD Trimester 48.4-422.5 Patients receiving DHEA-S supplements may show false elevation of progesterone for results near 1.0 ng/mL. Contact laboratory at [phone] if alternative testing is needed. Performed By: #### 2 1198-7 #### SHAUNA ROBISON ([id number]) [facility] ([facility]) [address] [place] [address] Thyrotropinon 08-14-2024 TSH Qn 1.86 m[IU]/L Normal 0.44-3.98 [facility] Comment on above: Order Comment: Total HCG measurement is performed using the Tutu Lindstrom Access Immunoassay which detects intact HCG and free beta HCG subunit. This test is not indicated for use as a tumor marker. HCG testing is performed using a different test methodology at [facility] than other [facility]. Direct result comparison should only be made within the same method. Performed By: #### 2 1198-7 #### SHAUNA ROBISON ([id number]) [facility] ([facility]) [address] [place] [address] US PELVIS TRANSABDOMINAL WIT H TRANSVAGINALon 08-14-2024 US PELVIS TRANSABDOMINAL WITH TRANSVAGINAL Interpreted By: Ravi Triplett, STUDY: US PELVIS TRANSABDOMINAL WITH TRANSVAGINAL; ; 08/14/2024 8:54 am INDICATION: Signs/Symptoms:FERTI LITY. COMPARISON: 06/24/2024 ACCESSION NUMBER(S): [id number] ORDERING CLINICIAN: LEVON BRAXTON TECHNIQUE: Multiple transabdominal [...] Ravi Triplett 08/15/2024 2:03 PM Dictation workstation: [id number] [facility] Internal Medicine Office Vis iton 07-16-2024 Internal Medicine Office Visit Normal [facility] Estradiolon 06-24-2024 E2 [Mass/Vol] 453 pg/mL [facility] Comment on above: Order Comment: Total HCG measurement is performed using the Tutu Lindstrom Access Immunoassay which detects intact HCG and free beta HCG subunit. This test is not indicated for use as a tumor marker. HCG testing is performed using a different test methodology at [facility] than other [facility]. Direct result comparison should only be made within the same method. Performed By: #### 2 1198-7 #### SHAUNA ROBISON ([id number]) [facility] ([facility]) [facility] [place] [address] Lutropinon 06-24-2024 Lutropin Qn 3.1 IU/L [facility] Comment on above: Result Comment: LH R eference Values Follicular Phase 1.9-12.5 IU/L Mid-Cycle 8.7-76.3 IU/L Luteal Phase 0.5-16.9 IU/L Post Menopause 5.0-55.2 IU/L Children 0- 6.0 IU/L Adult Male 18-70 years 1.5- 9.3 IU/L Adult Male >70 years 3.1-34.6 IU/L Performed By: #### 2 1198-7 #### SHAUNA ROBISON ([id number]) [facility] ([facility]) [facility] [place] [address] Progesteroneon 06-24-2024 Progesterone [Mass/Vol] 0.6 ng/mL Normal [facility] Comment on above: Result Comment: Ref Values Male <0.3- 1.2 Follicular Phase <0.3- 1.4 Luteal Phase 3.3-25.6 Mid-Luteal Phase 4.4-28.0 Postmenopausal <0.3- 0.7 Females: 1st Trimester 11.2- 90.0 2nd Trimester 25.6- 89.4 3RD Trimester 48.4-422.5 Patients receiving DHEA-S supplements may show false elevation of progesterone for results near 1.0 ng/mL. Contact laboratory at [phone] if alternative testing is needed. Performed By: #### 2 1198-7 #### VILLATORO ENRIQUETA ([id number]) [facility] ([facility]) [address] [place] [address] GERRY US PELVIS LIMITED FOLLIC LES-FOLLICLE STUDIES PERFORMEDon 06-24-2024 GERRY US PELVIS LIMITED FOLLICLES-FOLLICLE STUDIES PERFORMED Interpreted By: Xiang Bowden, STUDY: US PELVIS TRANSABDOMINAL WITH TRANSVAGINAL; 06/24/2024 9:01 am INDICATION: Signs/Symptoms:ROMULO PABLO ,Z31.83 Encounter for assisted reproductive fertility procedure cycle COMPARISON: None. ACCESSION NUMBER(S): [id number] ORDERING CLINICIAN: LEVON BRAXTON TECHNIQUE: Multiple multiplanar [...] Xiang Bowden 06/25/2024 6:46 AM Dictation workstation: [id number] [facility] US PELVIS TRANSABDOMINAL WIT H TRANSVAGINALon 06-24-2024 US PELVIS TRANSABDOMINAL WITH TRANSVAGINAL Interpreted By: Xiang Bowden, STUDY: US PELVIS TRANSABDOMINAL WITH TRANSVAGINAL; 06/24/2024 9:01 am INDICATION: Signs/Symptoms:ROMULO PABLO ,Z31.83 Encounter for assisted reproductive fertility procedure cycle COMPARISON: None. ACCESSION NUMBER(S): [id number] ORDERING CLINICIAN: LEVON BRAXTON TECHNIQUE: Multiple multiplanar [...] Xiang Bowden 06/25/2024 6:46 AM Dictation workstation: [id number] [facility] Estradiolon 06-22-2024 E2 [Mass/Vol] 124 pg/mL [facility] Comment on above: Order Comment: REF V ALUES FOLLICULAR PHASE 20-144 MID CYCLE 64-357 LUTEAL PHASE 56-214 POSTMENOPAUSE < 32 PREPUBERTY < 20 FEMALE 10-18Y 8-110 MALE 10-18Y < 20 ADULT MALE < 40 Performed By: #### 2 243-4 #### DWAYNE Nair ([id number]) [facility] ([facility]) [address] [place] [address] Lutropinon 06-22-2024 Lutropin Qn 1.9 IU/L [facility] Comment on above: Result Comment: LH R eference Values Follicular Phase 1.9-12.5 IU/L Mid-Cycle 8.7-76.3 IU/L Luteal Phase 0.5-16.9 IU/L Post Menopause 5.0-55.2 IU/L Children 0- 6.0 IU/L Adult Male 18-70 years 1.5- 9.3 IU/L Adult Male >70 years 3.1-34.6 IU/L Performed By: #### 1 0501-5 #### DWAYNE Nair ([id number]) [facility] ([facility]) [address] [place] [address] Progesteroneon 06-22-2024 Progesterone [Mass/Vol] 0.4 ng/mL Normal [facility] Comment on above: Result Comment: Ref Values Male <0.3- 1.2 Follicular Phase <0.3- 1.4 Luteal Phase 3.3-25.6 Mid-Luteal Phase 4.4-28.0 Postmenopausal <0.3- 0.7 Females: 1st Trimester 11.2- 90.0 2nd Trimester 25.6- 89.4 3RD Trimester 48.4-422.5 Patients receiving DHEA-S supplements may show false elevation of progesterone for results near 1.0 ng/mL. Contact laboratory at [phone] if alternative testing is needed. Performed By: #### 2 1198-7 #### SHAUNA ROBISON ([id number]) [facility] ([facility]) [address] [place] [address] GERRY US PELVIS LIMITED FOLLIC LES-FOLLICLE STUDIES PERFORMEDon 06-22-2024 GERRY US PELVIS LIMITED FOLLICLES-FOLLICLE STUDIES PERFORMED Interpreted By: Xiang Bowden, STUDY: US PELVIS TRANSABDOMINAL WITH TRANSVAGINAL; 06/22/2024 9:02 am INDICATION: Signs/Symptoms:ROMULO PABLO ,Z31.83 Encounter for assisted reproductive fertility procedure cycle COMPARISON: None. ACCESSION NUMBER(S): [id number] ORDERING CLINICIAN: LEVON BRAXTON TECHNIQUE: Multiple multiplanar [...] Xiang Bowden 06/23/2024 5:37 AM Dictation workstation: [id number] [facility] US PELVIS TRANSABDOMINAL WIT H TRANSVAGINALon 06-22-2024 US PELVIS TRANSABDOMINAL WITH TRANSVAGINAL Interpreted By: Xiang Bowden, STUDY: US PELVIS TRANSABDOMINAL WITH TRANSVAGINAL; 06/22/2024 9:02 am INDICATION: Signs/Symptoms:ROMULO PABLO ,Z31.83 Encounter for assisted reproductive fertility procedure cycle COMPARISON: None. ACCESSION NUMBER(S): [id number] ORDERING CLINICIAN: LEVON BRAXTON TECHNIQUE: Multiple multiplanar [...] Xiang Bowden 06/23/2024 5:37 AM Dictation workstation: [id number] Normal [facility] Estradiolon 06-19-2024 E2 [Mass/Vol] 49 pg/mL Normal [facility] Comment on above: Order Comment: REF V ALUES FOLLICULAR PHASE 20-144 MID CYCLE 64-357 LUTEAL PHASE 56-214 POSTMENOPAUSE < 32 PREPUBERTY < 20 FEMALE 10-18Y 8-110 MALE 10-18Y < 20 ADULT MALE < 40 Performed By: #### 2 243-4 #### DWAYNE Nair ([id number]) [facility] ([facility]) [address] [place], [place] [address] Lutropinon 06-19-2024 Lutropin Qn 7.0 IU/L Normal [facility] Comment on above: Result Comment: LH R eference Values Follicular Phase 1.9-12.5 IU/L Mid-Cycle 8.7-76.3 IU/L Luteal Phase 0.5-16.9 IU/L Post Menopause 5.0-55.2 IU/L Children 0- 6.0 IU/L Adult Male 18-70 years 1.5- 9.3 IU/L Adult Male >70 years 3.1-34.6 IU/L Performed By: #### 1 0501-5 #### DWAYNE Nair ([id number]) [facility] ([facility]) [address] [place] [address] Progesteroneon 06-19-2024 Progesterone [Mass/Vol] 0.5 ng/mL Normal [facility] Comment on above: Result Comment: Ref Values Male <0.3- 1.2 Follicular Phase <0.3- 1.4 Luteal Phase 3.3-25.6 Mid-Luteal Phase 4.4-28.0 Postmenopausal <0.3- 0.7 Females: 1st Trimester 11.2- 90.0 2nd Trimester 25.6- 89.4 3RD Trimester 48.4-422.5 Patients receiving DHEA-S supplements may show false elevation of progesterone for results near 1.0 ng/mL. Contact laboratory at [phone] if alternative testing is needed. Performed By: #### 2 839-9 #### DWAYNE ZAIRA Nair ([id number]) [facility] ([facility]) [address] [place] [address] GERRY US PELVIS LIMITED FOLLIC LES-FOLLICLE STUDIES PERFORMEDon 06-19-2024 GERRY US PELVIS LIMITED FOLLICLES-FOLLICLE STUDIES PERFORMED Interpreted By: Lawson Wynn, STUDY: US PELVIS TRANSABDOMINAL WITH TRANSVAGINAL; 06/19/2024 9:11 am INDICATION: Signs/Symptoms:ROMULO PABLO ,Z31.83 Encounter for assisted reproductive fertility procedure cycle COMPARISON: Prior exam from 06/15/2024.. ACCESSION NUMBER(S): [id number] ORDERING CLINICIAN: LEVON BRAXTON TECHNIQUE: Multiple multiplanar [...] Lawson Wynn 06/20/2024 4:53 PM Dictation workstation: [id number] [facility] US PELVIS TRANSABDOMINAL WIT H TRANSVAGINALon 06-19-2024 US PELVIS TRANSABDOMINAL WITH TRANSVAGINAL Interpreted By: Lawsno Wynn, STUDY: US PELVIS TRANSABDOMINAL WITH TRANSVAGINAL; 06/19/2024 9:11 am INDICATION: Signs/Symptoms:ROMULO PABLO ,Z31.83 Encounter for assisted reproductive fertility procedure cycle COMPARISON: Prior exam from 06/15/2024.. ACCESSION NUMBER(S): [id number] ORDERING CLINICIAN: LEVON BRAXTON TECHNIQUE: Multiple multiplanar [...] Lawson Wynn 06/20/2024 4:53 PM Dictation workstation: [id number] [facility] Choriogonadotropin.beta subu niton 06-15-2024 HCG.beta subunit Qn m[IU]/mL Normal <5 [facility] [facility] Comment on above: Order Comment: Total HCG measurement is performed using the [employer] Nest[employer] Access Immunoassay which detects intact HCG and free beta HCG subunit. This test is not indicated for use as a tumor marker. HCG testing is performed using a different test methodology at [facility] than other [facility]. Direct result comparison should only be made within the same method. Performed By: #### 2 1198-7 #### VILLATORO ENRIQUETA ([id number]) [facility] ([facility]) [address] [place] [address] Estradiolon 06-15-2024 E2 [Mass/Vol] 47 pg/mL Normal [facility] Comment on above: Order Comment: REF V ALUES FOLLICULAR PHASE 20-144 MID CYCLE 64-357 LUTEAL PHASE 56-214 POSTMENOPAUSE < 32 PREPUBERTY < 20 FEMALE 10-18Y 8-110 MALE 10-18Y < 20 ADULT MALE < 40 Performed By: #### 2 243-4 #### DWAYNE Nair ([id number]) [facility] ([facility]) [id number] [place] [address] Follitropin and Lutropin rhoaeds el Qnon 06-15-2024 Follitropin Qn 5.0 IU/L Normal [facility] Comment on above: Result Comment: FSH Ref Values Follicular 2.0-12.0 IU/L Mid-Cycle 12.0-25.0 IU/L Luteal Phase 2.0-12.0 IU/L Menopause 30.0-150.0 IU/L Pre-puberty 50% Adult IU/L Adult Male 2.0-10.0 IU/L Infants 0.0-1.0 IU/L Performed By: #### 3 4549-6 #### DWAYNE Nair ([id number]) [facility] ([facility]) [address] [place] [address] Lutropin Qn 2.9 IU/L Normal [facility] Comment on above: Result Comment: LH R eference Values Follicular Phase 1.9-12.5 IU/L Mid-Cycle 8.7-76.3 IU/L Luteal Phase 0.5-16.9 IU/L Post Menopause 5.0-55.2 IU/L Children 0- 6.0 IU/L Adult Male 18-70 years 1.5- 9.3 IU/L Adult Male >70 years 3.1-34.6 IU/L Performed By: #### 3 4549-6 #### DWAYNE Nair ([id number]) [facility] ([facility]) [address] [place] [address] Progesteroneon 06-15-2024 Progesterone [Mass/Vol] 0.5 ng/mL Normal [facility] Comment on above: Result Comment: Ref Values Male <0.3- 1.2 Follicular Phase <0.3- 1.4 Luteal Phase 3.3-25.6 Mid-Luteal Phase 4.4-28.0 Postmenopausal <0.3- 0.7 Females: 1st Trimester 11.2- 90.0 2nd Trimester 25.6- 89.4 3RD Trimester 48.4-422.5 Patients receiving DHEA-S supplements may show false elevation of progesterone for results near 1.0 ng/mL. Contact laboratory at [phone] if alternative testing is needed. Performed By: #### 2 839-9 #### DWAYNE Nair ([id number]) [facility] ([facility]) [address] [place] [address] Thyrotropinon 06-15-2024 TSH Qn 2.68 m[IU]/L Normal 0.44-3.98 [facility] Comment on above: Order Comment: TSH t esting is performed using different testing methodology at [facility] than at other [facility]. Direct result comparisons should only be made within the same method. Performed By: #### 3 016-3 #### VILLATORO ENRIQUETA ([id number]) [facility] ([facility]) [address] [place] [address] US PELVIS TRANSABDOMINAL WIT H TRANSVAGINALon 06-15-2024 US PELVIS TRANSABDOMINAL WITH TRANSVAGINAL Interpreted By: Dyllan De Jesus, STUDY: US PELVIS TRANSABDOMINAL WITH TRANSVAGINAL; ; 06/15/2024 8:31 am INDICATION: Signs/Symptoms:Ferti lity. COMPARISON: None. ACCESSION NUMBER(S): [id number] ORDERING CLINICIAN: LEVON BRAXTON TECHNIQUE: Multiple multiplanar [...] De Jesus 06/15/2024 12:12 PM Dictation workstation: [id number] [facility] US Pelvis transvaginalon 1. Single follicle within the right ovary, as above. 2. Tiny hypoechoic focus in the endometrium, of uncertain etiology. MACRO: None Signed by: Dyllan De Jesus 06/15/2024 12:12 PM Dictation workstation: [id number] Interpreted By: Dyllan De Jesus, STUDY: US PELVIS TRANSABDOMINAL WITH TRANSVAGINAL; ; 06/15/2024 8:31 am INDICATION: Signs/Symptoms:Ferti lity. COMPARISON: None. ACCESSION NUMBER(S): [id number] ORDERING CLINICIAN: LEVON BRAXTON TECHNIQUE: Multiple multiplanar [...] INDICATION: Signs/Symptoms:Ferti lity. COMPARISON: None. ACCESSION NUMBER(S): [id number] ORDERING CLINICIAN: LEVON BRAXTON TECHNIQUE: Multiple multiplanar [...] De Jesus 06/15/2024 12:12 PM Dictation workstation: [id number] [facility] Work Phone: Radiology Study observation (narrative) [facility] Work Phone: US Pelvis transvaginalOrdere d By: Dyllan De Jesus on 06-15-2024 [facility] Work Phone: CNOVon 01-12-2024 CNOV Office Visit (UCWSTR) BARBY CABALLERO ([id number]) 1990 F Date Time Provider Department 01/12/24 10:30 AM GINA SAHU [facility] During your visit today, we recorded the following information about you: Temperature Pulse Respiration Blood pressure 97.9 degrees 134/minute 20/minute 118/78 Weight 120.3 kg Gina Sahu APRN.[facility] 01/12/2024 11:22 AM Signed CC: Patient presents [...] Patient agreeable to treatment plan. 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 TSH W/FT4 REFLEXon 3 TSH 1.264 uIU/mL Normal 0.550-4.780 [facility] Comment on above: Performed By: #### T SHQR #### [facility] (DEFAULT) [address] [address] PROGESTERONEon 04-03-2023 Progesterone 15.64 ng/mL Normal [facility] Comment on above: Result Comment: This test is not recommended for patients receiving DHEA due to cross reactivity of DHEA S in the progesterone assay. Reference Range: Males: 0.28-1.22 ng/mL Females: Follicular phase 0-1.40 ng/mL Luteal phase 3.34-25.56 ng/mL Midluteal phase 4.44-28.03 ng/mL Postmenopausal 0-0.73 ng/mL Performed By: #### P DIANDRA #### [facility] (DEFAULT) [address] [place] [address] MAMMO DIAGNOSTIC WITH ADRIANA B ILATERALon 01-09-2023 MAMMO DIAGNOSTIC WITH ADRIANA BILATERAL EXAM: MAMMO DIAGNOSTIC WITH ADRIANA BILATERAL, US BREAST LIMITED UNILATERAL RIGHT, 01/09/2023 09:20 AM (accession [id number]), 01/09/2023 09:31 AM (accession [id number]) CLINICAL INDICATIONS: The patient reports right upper [...] Clinical correlation/manageme nt. Recommendation Laterality: Right Normal [facility] MG Breast - bilateral Diagno sticon 01-09-2023 IMPRESSION: 1. No suspicious mammographic or sonographic findings in the right breast to explain symptoms. 2. No suspicious mammographic findings in the left breast. BI-RADS: 1: Negative Recommendation: Clinical correlation/manageme nt. Recommendation Laterality: Right OLOGY EXAM: MAMMO DIAGNOSTIC WITH ADRIANA BILATERAL, US BREAST LIMITED UNILATERAL RIGHT, 01/09/2023 09:20 AM (accession [id number]), 01/09/2023 09:31 AM (accession [id number]) CLINICAL INDICATIONS: The patient reports right upper [...] LIMITED UNILATERAL RIGHT, 01/09/2023 09:20 AM (accession [id number]), 01/09/2023 09:31 AM (accession [id number]) CLINICAL INDICATIONS: The patient reports right upper [...] Recommendation: Clinical correlation/manageme nt. Recommendation Laterality: Right [facility] Radiology Study observation (narrative) [facility] MG Breast - bilateral Diagno sticOrdered By: Nettie Trejo on 01-09-2023 [facility] US BREAST LIMITED UNILATERAL RIGHTon 01-09-2023 US BREAST LIMITED UNILATERAL RIGHT EXAM: MAMMO DIAGNOSTIC WITH ADRIANA BILATERAL, US BREAST LIMITED UNILATERAL RIGHT, 01/09/2023 09:20 AM (accession [id number]), 01/09/2023 09:31 AM (accession [id number]) CLINICAL INDICATIONS: The patient reports right upper [...] Clinical correlation/manageme nt. Recommendation Laterality: Right Normal [facility] HEMOGLOBIN S2HDdynocm By: Sa fred Carbajal on 09-27-2022 Average glucose Estimated from glycated hemoglobin (Bld) [Mass/Vol] 105 mg/dL [facility] HbA1c (Bld) [Mass fraction] 5.3 % 4.7 - 5.6 % [facility] HEMOGLOBIN A1Con 09-27-2022 Glucose [Mass/Vol] 105 mg/dL Normal [facility] Comment on above: Performed By: #### A 1CB #### [facility] (DEFAULT) [address] [address] HbA1c (Bld) [Mass fraction] 5.3 % Normal 4.7-5.6 [facility] Comment on above: Performed By: #### A 1CB #### [facility] (DEFAULT) [address] [address] LIPID PANEL WITH REFLEX TO M EASURED LDLon 09-27-2022 Calculated LDL Cholesterol 51 mg/dL Normal 0-99 [facility] Comment on above: Result Comment: [<10 0 mg/dL: Optimal] [100-129 mg/dL: Near Optimal] [130-159 mg/dL: Borderline High] [160-189 mg/dL: High] [>189 mg/dL: Very High] Performed By: #### L IPDR #### [facility] (DEFAULT) [address] [address] Cholesterol [Mass/Vol] 122 mg/dL Normal <200 [facility] Comment on above: Result Comment: [<20 0 mg/dL: Desirable] [200-239 mg/dL: Borderline High] [>239 mg/dL: High] Performed By: #### L IPDR #### [facility] (DEFAULT) [address] [address] Cholesterol in HDL [Mass/Vol] 50 mg/dL Normal >=40 [facility] Comment on above: Result Comment: [<40 mg/dL: Low (High Risk)] [>59 mg/dL: High (Low Risk)] Performed By: #### L IPDR #### [facility] (DEFAULT) [address] [address] Non HDL Cholesterol 72 mg/dL Normal <130 [facility] Comment on above: Performed By: #### L IPDR #### [facility] (DEFAULT) [address] [place] [address] Total Cholesterol/HDL Ratio 2.4 Normal <4.5 [facility] Comment on above: Performed By: #### L IPDR #### [facility] (DEFAULT) [address] [place] [address] Triglyceride [Mass/Vol] 104 mg/dL Normal <150 [facility] Comment on above: Result Comment: [<15 0 mg/dL: Desirable] [150-199 mg/dL: Borderline] [200-499 mg/dL: High] [>500 mg/dL: Very High] Performed By: #### L IPDR #### [facility] (DEFAULT) [address] [place] [address] Cholesterol [Mass/Vol] 122 mg/dL NINF - 200 mg/dL [facility] Comment on above: [<200 mg/dL: Desirab le] [200-239 mg/dL: Borderline High] [>239 mg/dL: High] Cholesterol in HDL [Mass/Vol] 50 mg/dL 40 - PINF mg/dL [facility] Comment on above: [<40 mg/dL: Low (Hig h Risk)] [>59 mg/dL: High (Low Risk)] Cholesterol in HDL [Mass/Vol] 72 mg/dL NINF - 130 mg/dL [facility] Cholesterol in LDL [Mass/Vol] 51 mg/dL 0 - 99 mg/dL [facility] Comment on above: [<100 mg/dL: Optimal ] [100-129 mg/dL: Near Optimal] [130-159 mg/dL: Borderline High] [160-189 mg/dL: High] [>189 mg/dL: Very High] Cholesterol.total/Choles terol in HDL [Mass ratio] 2.4 {ratio} NINF - 4.5 [facility] Interpretation and review of laboratory results Normal [facility] Triglyceride [Mass/Vol] 104 mg/dL NINF - 150 mg/dL [facility] Comment on above: [<150 mg/dL: Desirab le] [150-199 mg/dL: Borderline] [200-499 mg/dL: High] [>500 mg/dL: Very High] [facility] PROLACTINon 09-27-2022 Prolactin [Mass/Vol] 4.4 ng/mL [facility] Comment on above: Reference Range: Females Non: 2.8-29.2 ng/mL : 9.7-208.5 ng/mL Postmenopausal: 1.8-20.3 ng/mL <2 years: 3.3-14.7 ng/mL 2-5 years: 1.0-12.8 ng/mL 6-10 years: 1.2-11.4 ng/mL 11-17 years: 1.4-14.3 ng/mL Males: 2.1-17.7 ng/mL [facility] Prolactin 4.4 ng/mL Normal [facility] Comment on above: Result Comment: Refe maddie Range: Females Non: 2.8-29.2 ng/mL : 9.7-208.5 ng/mL Postmenopausal: 1.8-20.3 ng/mL <2 years: 3.3-14.7 ng/mL 2-5 years: 1.0-12.8 ng/mL 6-10 years: 1.2-11.4 ng/mL 11-17 years: 1.4-14.3 ng/mL Males: 2.1-17.7 ng/mL Performed By: #### P ROL, TSHQR #### [facility] (DEFAULT) [address] [place] [address] TSH W/FT4 REFLEXon Interpretation and review of laboratory results Normal [facility] TSH Qn 1.680 m[IU]/L [facility] TSH 1.680 uIU/mL Normal 0.550-4.780 [facility] Comment on above: Performed By: #### P ROL, TSHQR #### [facility] (DEFAULT) [address] [place] [address] CYTOLOGY-RETAIL MERCHANDISING COORDINATOR, 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on 09-05-2022 ---Cytologic Interpretation--- Normal [facility] Comment on above: 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 Result Comment: ? Ne gative for Intraepithelial Lesion or Malignancy ? HPV Results Reported in Attached Report This Pap Test was imaged with the assistance of the [employer] ThinPrep Imaging System and screened by a Psychology Teacher. Performed By: #### T HINP #### [facility] (DEFAULT) [address] [place] [address] Case Report Normal [facility] Comment on above: 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 Result Comment: Gyne cologic Cytology Report Case: [id number] Authorizing Provider: Faith Starkey MD Collected: 09/05/2022 03:07 PM Ordering Location: Obstetrics and Gynecology Received: 09/05/2022 04:39 PM [facility] First Screen: Tammy Alberto Rescreen: Monika Tenorio Specimen: Cervical/Endocervical, ThinPrep, Cervical/Endocervical Performed By: #### T HINP #### [facility] (DEFAULT) [address] [address] HPV Reflex? HPV HR with genotyping if NILM, ASCUS, LSIL (30 and older) Normal [facility] Comment on above: 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 Result Comment: [facility] Immediate [facility] Performed By: #### T HINP #### [facility] (DEFAULT) [address] [address] LMP 08/05/2022 Normal [facility] Comment on above: 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 Performed By: #### T HINP #### [facility] (DEFAULT) [address] [place] [address] PAP METHOD ThinPrep Normal [facility] Comment on above: 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 Performed By: #### T HINP #### [facility] (DEFAULT) [address] [place] [address] HPV WITH GENOTYPING (WITH VIRGILIO FARRIS)on 09-05-2022 HPV Genotype 16 Negative Normal Negative [facility] Comment on above: 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 HPV DNA detection performed by Real-Time PCR. The assay detects HPV 16, 18, 31, 33, 35, 39, 45, 51, 52, 56, 58, 59, 66, 68.Testing performed at [facility]. Performed By: #### H PVGCO #### [facility] (DEFAULT) [address] [place] [address] HPV Genotype 18 Negative Normal Negative [facility] Comment on above: 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 HPV DNA detection performed by Real-Time PCR. The assay detects HPV 16, 18, 31, 33, 35, 39, 45, 51, 52, 56, 58, 59, 66, 68.Testing performed at [facility]. Performed By: #### H PVGCO #### [facility] (DEFAULT) [address] [place] [address] HPV Other High Risk Types, PCR Negative Normal Negative [facility] Comment on above: Order Comment: Justice nt'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 HPV DNA detection performed by Real-Time PCR. The assay detects HPV 16, 18, 31, 33, 35, 39, 45, 51, 52, 56, 58, 59, 66, 68.Testing performed at [facility]. Performed By: #### H PVGCO #### [facility] (DEFAULT) [address] [place] [address] COVID-19, MOLECULARon 2020 SARS-CoV-2 (COVID-19) RNA CONCHITA+probe Ql (Unsp spec) Not detected Normal Not Detected [facility] Comment on above: Result Comment: This test was performed under the FDA's Emergency Use Authorization (EUA). Testing was performed using the Xpert?? Xpress SARS-CoV-2/Flu/RSV plus RT-PCR Linkage assay on the [employer] Xpress System. This test has not been approved for use in asymptomatic patients and its performance in this patient population has not been evaluated. Negative results do not rule out the presence of SARS-CoV-2/COVID-19. Fact sheets for this EUA can be found at the following links: For Healthcare Providers: https://www.fda.gov/media/654942/download For Patients: https://www.fda.gov/media/177090/download Performed By: #### L [id number] #### [facility] [address] [place], [place] [address] Xiang Chahal M[address]D. [id number] CT ABDOMEN PELVIS WITH IV CO NTRAST [...] of significance including no evidence for appendicitis. [employer] Workstation ID: [id number] Dictated by: DECLAN MESSER on SatSep 15, 2021 12:10:30 PM EST Transcribed by: CARLOS WEATHERS on SatSep 15, 2021 12:18:43 PM EST Finalized by: DECLAN MESSER on SatSep 15, 2021 2:13:51 PM EST Normal [facility] Comment on above: Order Comment: Injur y/Trauma [...] duct. 3. No additional abnormalities of significance. [employer] Workstation ID: [id number] Dictated by: DECLAN MESSER on SatSep 15, 2021 3:45:33 PM EST Transcribed by: SWEETIE DELUNA on SatSep 15, 2021 3:55:23 PM EST Finalized by: DECLAN MESSER on SatSep 15, 2021 3:56:08 PM EST Normal [facility] Comment on above: Order Comment: Injur y/Trauma [...] The remaining study is within normal limits. [email or web address] Workstation ID: [id number] Dictated by: JEANA LIND on SatSep 15, 2021 9:29:20 AM EST Transcribed by: CARLOS WEATHERS on SatSep 15, 2021 9:33:21 AM EST Finalized by: JEANA LIND on SatSep 15, 2021 9:36:51 AM EST Normal [facility] Comment on above: Order Comment: US Ga llbladder Injury/Trauma or Illness?:Illness/Other How long have you had these symptoms (acute/chronic)?:Acute Reason for exam?:RUQ pain History of cancer?:no Surgeries, chemotherapy, or radiation?:no Type of Exam?:Initial Additional signs and symptoms?:none COVID-19, MOLECULARon 2019 INTERNAL CONTROL (ABBOT ID) Pass Normal [facility] SARS-COV-2 (SPEARS ID) Not Detected Normal Not Detecte d [facility] Urgent [facility] POC COVID-19 Molecularon Internal Control Pass [facility] Interpretation and review of laboratory results Normal [facility] SARS-CoV-2 Not Detected Not Detected [facility] BMPon 07-29-2019 Anion gap [Moles/Vol] 19 mmol/L 10 - 20 mmol/L [facility] Calcium [Mass/Vol] 9.6 mg/dL 8.4 - 10. 2 mg/dL [facility] Chloride [Moles/Vol] 105 mmol/L 98 - 10 8 mmol/L [facility] Creatinine [Mass/Vol] 0.62 mg/dL 0.4 - 1.1 mg/dL [facility] GFR/1.73 sq M predicted among non-blacks MDRD (S/P/Bld) [Vol rate/Area] The eGFR should be used for monitoring renal function only and not for medication dosing. [facility] GFR/1.73 sq M.predicted CKD-EPI (S/P/Bld) [Vol rate/Area] 122 >=60 mL/min/1.73 m2 [facility] Glucose [Mass/Vol] 104 mg/dL High 65 - 99 mg/dL [facility] HCO3 [Moles/Vol] 22 mmol/L 21 - 32 mmol/L [facility] Interpretation and review of laboratory results Abnormal [facility] Potassium [Moles/Vol] 4.2 mmol/L 3.5 - 5.1 mmol/L [facility] Sodium [Moles/Vol] 142 mmol/L 135 - 145 mmol/L [facility] Urea nitrogen [Mass/Vol] 11 mg/dL 8 - 25 mg/d L [facility] Urea nitrogen/Creatinine [Mass ratio] 17.7 mg/mg [facility] CBC WITH AUTO DIFFERENTIALon 07-29-2019 Basophils (Bld) [#/Vol] 0.03 10*3/uL [facility] Basophils/100 WBC (Bld) 0.3 % [facility] Eosinophils (Bld) [#/Vol] 0.14 10*3/uL [facility] Eosinophils/100 WBC (Bld) 1.2 % [facility] Erythrocyte distribution width (RBC) [Entitic vol] 13.9 % 11.6 - 14.8 % [facility] Hematocrit (Bld) [Volume fraction] 41.0 % 36 - 46 % [facility] Hemoglobin (Bld) [Mass/Vol] 13.0 g/dL 12 - 16 g/dL [facility] Interpretation and review of laboratory results Abnormal [facility] Lymphocytes (Bld) [#/Vol] 3.19 10*3/uL [facility] Lymphocytes/100 WBC (Bld) 28.0 % [facility] MCH (RBC) [Entitic mass] 26.3 pg 26 - 34 pg [facility] MCHC (RBC) [Mass/Vol] 31.7 g/dL 31 - 37 g/dL [facility] MCV (RBC) [Entitic vol] 82.8 fL 80 - 100 fL [facility] Monocytes (Bld) [#/Vol] 0.45 10*3/uL [facility] Monocytes/100 WBC (Bld) 4.0 % [facility] Neutrophils (Bld) [#/Vol] 7.57 10*3/uL High [facility] Neutrophils/100 WBC (Bld) 66.5 % [facility] Nucleated RBC (Bld) [#/Vol] 0.00 10*3/uL [facility] Nucleated RBC/100 WBC (Bld) [Ratio] 0.0 % [facility] Platelet mean volume (Bld) [Entitic vol] 8.9 fL Low 9 - 15.5 fL [facility] Platelets (Bld) [#/Vol] 353 10*3/uL [facility] RBC (Bld) [#/Vol] 4.95 10*6/uL [facility] ealth WBC (Bld) [#/Vol] 11.38 10*3/uL High [facility] Hepatic Function Panel (LFT) on 07-29-2019 Albumin [Mass/Vol] 4.3 g/dL 3.2 - 5.2 g/dL [facility] ALP [Catalytic activity/Vol] 83 U/L 40 - 140 U/L [facility] ALT [Catalytic activity/Vol] 19 U/L 0 - 40 U/L [facility] AST [Catalytic activity/Vol] 16 U/L 0 - 45 U/L [facility] Bilirubin [Mass/Vol] mg/dL 0 - 1.3 mg/dL [facility] Bilirubin.conjugated [Mass/Vol] mg/dL 0 - 0.4 mg/dL [facility] Protein [Mass/Vol] 7.6 g/dL 6 - 8 g/dL [facility] alth Lipaseon 07-29-2019 Lipase [Catalytic activity/Vol] 30 U/L 15 - 65 U/L [facility] Otheron 07-29-2019 Interpretation and review of laboratory results Normal [facility] Interpretation and review of laboratory results Normal [facility] POC Urinalysis Dipstickon Bilirubin Ql (U) Negative Negative [facility] Glucose Ql (U) Negative Normal, Negative mg/dL [facility] Hemoglobin Ql (U) Negative Negative [facility] Ketones Ql (U) Negative Negative mg/dL [facility] alth Leukocyte esterase Test strip Ql (U) Negative Negative [facility] Nitrite Ql (U) Negative Negative [facility] pH (U) 5.0 [pH] [facility] Protein Ql (U) Negative Negative mg/dL [facility]th Urobilinogen Qn (U) Negative <2.0, 0. 2, Normal, Negative, 1.0, 2.0, <1.0 mg/dL [facility] POC Urine Pregnancyon 2018 HCG ( test) Ql (U) Negative Negative [facility] Internal Control Pass [facility] US ABDOMEN LIMITED STUDYon 1 1. There is a small 4 mm echogenic focus in the nondependent portion of the gallbladder wall which may reflect a small amount of adherent gallbladder sludge or a small benign cholesterol polyp. No further follow-up is required. 2. Otherwise unremarkable right upper quadrant abdominal ultrasound. [employer] Workstation ID: [id number] [facility] EXAMINATION: US ABDOMEN LIMITED STUDY HISTORY: [...] free fluid in the right upper quadrant. [facility], Rad In [place] Speechq - 07/29/2019 1:19 PM EDT EXAMINATION: [...] Otherwise unremarkable right upper quadrant abdominal ultrasound. [employer] [facility] Workstation ID: [id number] [facility] Urinalysison 07-29-2019 Specific gravity (U) [Rel density] 1.005 [facility] BMPon 03-19-2019 Anion gap [Moles/Vol] 17 mmol/L 10 - 20 mmol/L [facility] Calcium [Mass/Vol] 9.9 mg/dL 8.4 - 10. 2 mg/dL [facility] Chloride [Moles/Vol] 104 mmol/L 98 - 10 8 mmol/L [facility] Creatinine [Mass/Vol] 0.60 mg/dL 0.4 - 1.1 mg/dL [facility] GFR/1.73 sq M predicted among non-blacks MDRD (S/P/Bld) [Vol rate/Area] The eGFR should be used for monitoring renal function only and not for medication dosing. [facility] GFR/1.73 sq M.predicted CKD-EPI (S/P/Bld) [Vol rate/Area] 124 >=60 mL/min/1.73 m2 [facility] Glucose [Mass/Vol] 115 mg/dL High 65 - 99 mg/dL [facility] HCO3 [Moles/Vol] 23 mmol/L 21 - 32 mmol/L [facility] Interpretation and review of laboratory results Abnormal [facility] Potassium [Moles/Vol] 3.9 mmol/L 3.5 - 5.1 mmol/L [facility] Sodium [Moles/Vol] 140 mmol/L 135 - 145 mmol/L [facility] Urea nitrogen [Mass/Vol] 9 mg/dL 8 - 25 mg/d L [facility] Urea nitrogen/Creatinine [Mass ratio] 15.0 mg/mg [facility] CBC WITH AUTO DIFFERENTIALon 03-19-2019 Basophils (Bld) [#/Vol] 0.04 10*3/uL [facility] Basophils/100 WBC (Bld) 0.2 % [facility] Eosinophils (Bld) [#/Vol] 0.35 10*3/uL [facility] Eosinophils/100 WBC (Bld) 2.1 % [facility] Erythrocyte distribution width (RBC) [Entitic vol] 14.0 % 11.6 - 14.8 % [facility] Hematocrit (Bld) [Volume fraction] 41.7 % 36 - 46 % [facility] Hemoglobin (Bld) [Mass/Vol] 13.4 g/dL 12 - 16 g/dL [facility] Interpretation and review of laboratory results Abnormal [facility] Lymphocytes (Bld) [#/Vol] 5.33 10*3/uL High [facility] Lymphocytes/100 WBC (Bld) 31.6 % [facility] MCH (RBC) [Entitic mass] 26.2 pg 26 - 34 pg [facility] MCHC (RBC) [Mass/Vol] 32.1 g/dL 31 - 37 g/dL [facility] MCV (RBC) [Entitic vol] 81.4 fL 80 - 100 fL [facility] Monocytes (Bld) [#/Vol] 0.93 10*3/uL [facility] Monocytes/100 WBC (Bld) 5.5 % [facility] Neutrophils (Bld) [#/Vol] 10.22 10*3/uL High [facility] Neutrophils/100 WBC (Bld) 60.6 % [facility] Nucleated RBC (Bld) [#/Vol] 0.00 10*3/uL [facility] Nucleated RBC/100 WBC (Bld) [Ratio] 0.0 % [facility] Platelet mean volume (Bld) [Entitic vol] 8.7 fL Low 9 - 15.5 fL [facility] Platelets (Bld) [#/Vol] 418 10*3/uL High [facility] RBC (Bld) [#/Vol] 5.12 10*6/uL [facility] ealth WBC (Bld) [#/Vol] 16.87 10*3/uL [facility] D-DIMER, QUANTITATIVEon -2 -2018 Fibrin D-dimer FEU (PPP) [Mass/Vol] 0.42 0.27 - 0.49 mcg/mL FEU [facility] Interpretation and review of laboratory results Normal [facility] A D-dimer concentration of <0.5 micrograms per milliliter FEU is considered a low probability for pulmonary embolus (PE) and deep venous thrombosis (DVT). Results of this test should always be interpreted in conjunction with the patient's medical history,clinical presentation, and other findings. Clinical diagnosis should not be based on the results of the D-dimer alone. [facility] Hepatic Function Panel (LFT) on 03-19-2019 Albumin [Mass/Vol] 4.4 g/dL 3.2 - 5.2 g/dL [facility] ALP [Catalytic activity/Vol] 109 U/L 40 - 140 U/L [facility] ALT [Catalytic activity/Vol] 17 U/L 0 - 40 U/L [facility] AST [Catalytic activity/Vol] 16 U/L 0 - 45 U/L [facility] Bilirubin [Mass/Vol] mg/dL 0 - 1.3 mg/dL [facility] Bilirubin.conjugated [Mass/Vol] mg/dL 0 - 0.4 mg/dL [facility] Protein [Mass/Vol] 8.0 g/dL 6 - 8 g/dL [facility] alth Lipaseon 03-19-2019 Lipase [Catalytic activity/Vol] 39 U/L 15 - 65 U/L [facility] Otheron 03-19-2019 Extra Tube Hold for add-ons. [facility] Comment on above: Auto resulted. Interpretation and review of laboratory results Normal [facility] POC Urine Pregnancyon 2018 HCG ( test) Ql (U) Negative Negative [facility] Internal Control Pass [facility] th Interpretation and review of laboratory results Normal [facility] Specific gravity (U) [Rel density] 1.005 [facility] TROPONINon 03-19-2019 Troponin T.cardiac [Mass/Vol] ug/L <=14 ng/L [facility] Troponin T.cardiac [Mass/Vol] No biomarker evidence of cardiac injury. [facility] Troponin T.cardiac [Mass/Vol] ug/L <=14 ng/L [facility] Troponin T.cardiac [Mass/Vol] Normal [facility] XR CHEST AP/PA AND LATon Mild perihilar and lingular/bibasilar atelectatic change with no other acute process. [facility] Workstation ID: [id number] [facility] Interface, Rad In Deedee[facility] Speechq - 03/19/2019 6:01 AM EDT EXAMINATION: [...] other acute process. [facility] Workstation ID: [id number] [facility] EXAMINATION: XR CHEST AP/PA AND LAT [...] unremarkable. There is no acute osseous abnormality. [facility] ECG 12-LEADon 03-18-2019 Laurent Duque MD 03/19/2019 3:41 AM EKG 12-lead Date/Time: 03/18/2019 11:49 PM Performed by: Laurent Duque MD Authorized by: Laurent Duque MD Interpreted by ED attending physician Comparison: not compared with previous ECG BPM: 103 Comments: Rate 103, sinus tachycardia, normal QRS interval, normal axis, no acute ST elevation, interpreted by [facility] Vital Signs Date Time Vital Sign Value Performing Clinician Facility 05-28-2025 20:23-0400 Body temperature 97.7 [degF] Dr. Steffen Eisenberg MD Work Phone: [facility] 05-28-2025 20:23-0400 Diastolic blood pressure 85 mm[Hg] Dr. Steffen Eisenberg MD Work Phone: [facility] 05-28-2025 20:23-0400 Heart rate 99 /min Dr. Steffen Eisenberg MD Work Phone: [facility] 05-28-2025 20:23-0400 Respiratory rate 16 /min Dr. Steffen Eisenberg MD Work Phone: [facility] 05-28-2025 20:23-0400 SaO2% (BldA) [Mass fraction] 100 % Dr. Steffen Eisenberg MD Work Phone: [facility] 05-28-2025 20:23-0400 Systolic blood pressure 140 mm[Hg] Dr. Steffen Eisenberg MD Work Phone: [facility] 05-27-2025 13:24-0400 Body height 157.[address] Steffen iEsenberg MD Work Phone: [facility] 05-27-2025 13:24-0400 Body weight 117.[address] Steffen Eisenberg MD Work Phone: [facility] 05-27-2025 11:07-0400 Inhaled oxygen flow rate 2 L/min Dr. Steffen Eisenberg MD Work Phone: [facility] 05-27-2025 06:07-0400 Body mass index (BMI) [Ratio] 47.2 kg/m2 Dr. Steffen Eisenberg MD Work Phone: [facility] 05-24-2025 19:00-0400 Diastolic blood pressure 77 mm[Hg] Dr. Steffen Eisenberg MD Work Phone: [facility] 05-24-2025 19:00-0400 Heart rate 116 /min Dr. Steffen Eisenberg MD Work Phone: [facility] 05-24-2025 19:00-0400 SaO2% (BldA) [Mass fraction] 100 % Dr. Steffen Eisenberg MD Work Phone: [facility] 05-24-2025 19:00-0400 Systolic blood pressure 137 mm[Hg] Dr. Steffen Eisenberg MD Work Phone: [facility] 05-24-2025 18:25-0400 Body temperature 98.6 [degF] Dr. Steffen Eisenberg MD Work Phone: [facility] 05-24-2025 18:25-0400 Respiratory rate 20 /min Dr. Steffen Eisenberg MD Work Phone: [facility] 05-24-2025 13:55-0400 Body height 157.[address] Steffen Eisenberg MD Work Phone: [facility] 05-24-2025 13:55-0400 Body mass index (BMI) [Ratio] 47.7 kg/m2 Dr. Steffen Eisenberg MD Work Phone: [facility] 05-24-2025 13:55-0400 Body weight 118.[address] Steffen Eisenberg MD Work Phone: [facility] 05-15-2025 13:15-0400 Body temperature 98.5 [degF] Dr. Steffen Eisenberg MD Work Phone: [facility] 05-15-2025 13:15-0400 Diastolic blood pressure 62 mm[Hg] Dr. Steffen Eisenberg MD Work Phone: [facility] 05-15-2025 13:15-0400 Heart rate 107 /min Dr. Steffen Eisenberg MD Work Phone: [facility] 05-15-2025 13:15-0400 Respiratory rate 16 /min Dr. Steffen Eisenberg MD Work Phone: [facility] 05-15-2025 13:15-0400 SaO2% (BldA) [Mass fraction] 98 % Dr. Steffen Eisenberg MD Work Phone: [facility] 05-15-2025 13:15-0400 Systolic blood pressure 115 mm[Hg] Dr. Steffen Eisenberg MD Work Phone: [facility] 05-12-2025 06:26-0400 Body height 157.[address] Steffen Eisenberg MD Work Phone: [facility] 05-12-2025 06:26-0400 Body mass index (BMI) [Ratio] 48.7 kg/m2 Dr. Steffen Eisenberg MD Work Phone: [facility] 05-12-2025 06:26-0400 Body weight [address] Steffen Eisenberg MD Work Phone: [facility] 05-06-2025 14:10-0400 Body height 157.[address] Steffen Eisenberg MD Work Phone: [facility] 05-06-2025 14:09-0400 Body mass index (BMI) [Ratio] 49.6 kg/m2 Dr. Steffen Eisenberg MD Work Phone: [facility] 05-06-2025 14:09-0400 Body weight [address] Steffen Eisenberg MD Work Phone: [facility] 05-06-2025 14:09-0400 Diastolic blood pressure 84 mm[Hg] Dr. Steffen Eisenberg MD Work Phone: [facility] 05-06-2025 14:09-0400 Systolic blood pressure 125 mm[Hg] Dr. Steffen Eisenberg MD Work Phone: [facility] 04-28-2025 14:05-0400 Body height 157.[address] Steffen Eisenberg MD Work Phone: [facility] 04-28-2025 14:03-0400 Body mass index (BMI) [Ratio] 48.5 kg/m2 Dr. Steffen Eisenberg MD Work Phone: [facility] 04-28-2025 14:03-0400 Body weight 120.[address] Steffen Eisenberg MD Work Phone: [facility] 04-28-2025 14:03-0400 Diastolic blood pressure 86 mm[Hg] Dr. Steffen Eisenberg MD Work Phone: [facility] 04-28-2025 14:03-0400 Systolic blood pressure 123 mm[Hg] Dr. Steffen Eisenberg MD Work Phone: [facility] 04-20-2025 14:13-0400 Body height 157.[address] Steffen Eisenberg MD Work Phone: [facility] 04-20-2025 14:13-0400 Body mass index (BMI) [Ratio] 49 kg/m2 Dr. Steffen Eisenberg MD Work Phone: [facility] 04-20-2025 14:13-0400 Body weight 121.[address] Steffen Eisenberg MD Work Phone: [facility] 04-20-2025 14:13-0400 Diastolic blood pressure 81 mm[Hg] Dr. Steffen Eisenberg MD Work Phone: [facility] 04-20-2025 14:13-0400 Systolic blood pressure 116 mm[Hg] Dr. Steffen Eisenberg MD Work Phone: [facility] 04-19-2025 10:29-0400 Heart rate 115 /min Dr. Steffen Eisenberg MD Work Phone: [facility] 04-19-2025 10:29-0400 SaO2% (BldA) [Mass fraction] 96 % Dr. Steffen Eisenberg MD Work Phone: [facility] 04-19-2025 10:03-0400 Body height 157.[address] Steffen Eisenberg MD Work Phone: [facility] 04-19-2025 10:03-0400 Body mass index (BMI) [Ratio] 49.2 kg/m2 Dr. Steffen Eisenberg MD Work Phone: [facility] 04-19-2025 10:03-0400 Body weight 122.[address] Steffen Eisenberg MD Work Phone: [facility] 04-19-2025 09:57-0400 Body temperature 98.4 [degF] Dr. Steffen Eisenberg MD Work Phone: [facility] 04-19-2025 09:57-0400 Respiratory rate 20 /min Dr. Steffen Eisenberg MD Work Phone: [facility] 04-19-2025 09:56-0400 Diastolic blood pressure 80 mm[Hg] Dr. Steffen Eisenberg MD Work Phone: [facility] 04-19-2025 09:56-0400 Systolic blood pressure 132 mm[Hg] Dr. Steffen Eisenberg MD Work Phone: [facility] 04-07-2025 10:00-0400 Body height 157.[address] Steffen Eisenberg MD Work Phone: [facility] 04-07-2025 10:00-0400 Body mass index (BMI) [Ratio] 49 kg/m2 Dr. Steffen Eisenberg MD Work Phone: [facility] 04-07-2025 10:00-0400 Body weight 121.[address] Steffen Eisenberg MD Work Phone: [facility] 04-07-2025 10:00-0400 Diastolic blood pressure 80 mm[Hg] Dr. Steffen Eisenberg MD Work Phone: [facility] 04-07-2025 10:00-0400 Systolic blood pressure 119 mm[Hg] Dr. Steffen Eisenberg MD Work Phone: [facility] 03-26-2025 14:17-0400 Body height 157.[address] Steffen Eisenberg MD Work Phone: [facility] 03-26-2025 14:15-0400 Body mass index (BMI) [Ratio] 48.9 kg/m2 Dr. Steffen Eisenberg MD Work Phone: [facility] 03-26-2025 14:15-0400 Body weight 121.[address] Steffen Eisenberg MD Work Phone: [facility] 03-26-2025 14:15-0400 Diastolic blood pressure 82 mm[Hg] Dr. Steffen Eisenberg MD Work Phone: [facility] 03-26-2025 14:15-0400 Systolic blood pressure 131 mm[Hg] Dr. Steffen Eisenberg MD Work Phone: [facility] 03-10-2025 14:28-0400 Body height 157.[address] Steffen Eisenberg MD Work Phone: [facility] 03-10-2025 14:24-0400 Body mass index (BMI) [Ratio] 48.5 kg/m2 Dr. Steffen Eisenberg MD Work Phone: [facility] 03-10-2025 14:24-0400 Body weight 120.[address] Steffen Eisenberg MD Work Phone: [facility] 03-10-2025 14:24-0400 Diastolic blood pressure 76 mm[Hg] Dr. Steffen Eisenberg MD Work Phone: [facility] 03-10-2025 14:24-0400 Systolic blood pressure 110 mm[Hg] Dr. Steffen Eisenberg MD Work Phone: [facility] 02-26-2025 08:45-0400 Body height 157.[address] Steffen Eisenberg MD Work Phone: [facility] 02-26-2025 08:45-0400 Body mass index (BMI) [Ratio] 48.3 kg/m2 Dr. Steffen Eisenberg MD Work Phone: [facility] 02-26-2025 08:45-0400 Body weight 119.[address] Steffen Eisenberg MD Work Phone: [facility] 02-26-2025 08:45-0400 Diastolic blood pressure 66 mm[Hg] Dr. Steffen Eisenberg MD Work Phone: [facility] 02-26-2025 08:45-0400 Systolic blood pressure 102 mm[Hg] Dr. Steffen Eisenberg MD Work Phone: [facility] 01-29-2025 10:30-0400 Body mass index (BMI) [Ratio] 47.7 kg/m2 Dr. Steffen Eisenberg MD Work Phone: [facility] 01-29-2025 10:30-0400 Body weight 118.[address] Steffen Eisenberg MD Work Phone: [facility] 01-29-2025 10:30-0400 Diastolic blood pressure 81 mm[Hg] Dr. Steffen Eisenberg MD Work Phone: [facility] 01-29-2025 10:30-0400 Systolic blood pressure 114 mm[Hg] Dr. Steffen Eisenberg MD Work Phone: [facility] 01-01-2025 10:10-0400 Body mass index (BMI) [Ratio] 47.9 kg/m2 Dr. Steffen Eisenberg MD Work Phone: [facility] 01-01-2025 10:10-0400 Body weight 118.[address] Steffen Eisenberg MD Work Phone: [facility] 01-01-2025 10:10-0400 Diastolic blood pressure 82 mm[Hg] Dr. Steffen Eisenberg MD Work Phone: [facility] 01-01-2025 10:10-0400 Systolic blood pressure 125 mm[Hg] Dr. Steffen Eisenberg MD Work Phone: [facility] 12-03-2024 13:32-0500 Body mass index (BMI) [Ratio] 47.9 kg/m2 Dr. Steffen Eisenberg MD Work Phone: [facility] 12-03-2024 13:32-0500 Body weight 119.[address] Steffen Eisenberg MD Work Phone: [facility] 12-03-2024 13:32-0500 Diastolic blood pressure 82 mm[Hg] Dr. Steffen Eisenberg MD Work Phone: [facility] 12-03-2024 13:32-0500 Systolic blood pressure 120 mm[Hg] Dr. Steffen Eisenberg MD Work Phone: [facility] 11-10-2024 22:23-0500 Body temperature 98.2 [degF] Dr. Steffen Eisenberg MD Work Phone: [facility] 11-10-2024 22:23-0500 Diastolic blood pressure 97 mm[Hg] Dr. Steffen Eisenberg MD Work Phone: [facility] 11-10-2024 22:23-0500 Heart rate 115 /min Dr. Steffen Eisenberg MD Work Phone: [facility] 11-10-2024 22:23-0500 Respiratory rate 18 /min Dr. Steffen Eisenberg MD Work Phone: [facility] 11-10-2024 22:23-0500 SaO2% (BldA) [Mass fraction] 99 % Dr. Steffen Eisenberg MD Work Phone: [facility] 11-10-2024 22:23-0500 Systolic blood pressure 139 mm[Hg] Dr. Steffen Eisenberg MD Work Phone: [facility] 11-10-2024 18:31-0500 Body mass index (BMI) [Ratio] 47.4 kg/m2 Dr. Steffen Eisenberg MD Work Phone: [facility] 11-10-2024 18:31-0500 Body weight 117.[address] Steffen Eisenberg MD Work Phone: [facility] 11-05-2024 14:27-0500 Body mass index (BMI) [Ratio] 47.5 kg/m2 Dr. Steffen Eisenberg MD Work Phone: [facility] 11-05-2024 14:27-0500 Body weight 117.[address] Steffen Eisenberg MD Work Phone: [facility] 11-05-2024 14:27-0500 Diastolic blood pressure 89 mm[Hg] Dr. Steffen Eisenberg MD Work Phone: [facility] 11-05-2024 14:27-0500 Systolic blood pressure 125 mm[Hg] Dr. Steffen Eisenberg MD Work Phone: [facility] 01-12-2024 11:02-0400 Body temperature 97.9 [degF] Gina Sahu APRN.CERAMICS INSTRUCTOR Work Phone: [facility] 01-12-2024 11:02-0400 Body weight 120.3 kg Gina Sahu APRN.CERAMICS INSTRUCTOR Work Phone: [facility] 01-12-2024 11:02-0400 Diastolic blood pressure 78 mm[Hg] Gina Sahu APRN.CERAMICS INSTRUCTOR Work Phone: [facility] 01-12-2024 11:02-0400 Heart rate 134 /min Gina Sahu APRN.CERAMICS INSTRUCTOR Work Phone: [facility] 01-12-2024 11:02-0400 Respiratory rate 20 /min Gina Sahu APRN.CERAMICS INSTRUCTOR Work Phone: [facility] 01-12-2024 11:02-0400 SaO2% (BldA) [Mass fraction] 100 % Gina Sahu APRN.CERAMICS INSTRUCTOR Work Phone: [facility] 01-12-2024 11:02-0400 Systolic blood pressure 118 mm[Hg] Gina Sahu APRN.CERAMICS INSTRUCTOR Work Phone: [facility] 11-04-2023 11:53-0500 Body height 157.48 cm [facility] 11-04-2023 11:53-0500 Body mass index (BMI) [Ratio] 48.1 kg/m2 [facility] 11-04-2023 11:53-0500 Body weight 119.4 kg MARTA DEL VALLE [facility] 11-04-2023 11:53-0500 Diastolic blood pressure 89 mm[Hg] MARTA DEL VALLE [facility] 11-04-2023 11:53-0500 Systolic blood pressure 125 mm[Hg] [facility] 09:42-0500 Body height 158.1 cm Marta Del Valle MD Work Phone: [facility] 09-27-2022 09:42-0500 Body mass index (BMI) [Ratio] 42.84 kg/m2 Marta Del Valle MD Work Phone: [facility] 09-27-2022 09:42-0500 Body weight 107.11 kg Marta Del Valle MD Work Phone: [facility] 09-27-2022 09:42-0500 Diastolic blood pressure 72 mm[Hg] Marta Del Valle MD Work Phone: [facility] 09-27-2022 09:42-0500 Heart rate 113 /min Marta Del Valle MD Work Phone: [facility] 09-27-2022 09:42-0500 SaO2% (BldA) [Mass fraction] 99 % Marta Del Valle MD Work Phone: [facility] 09-27-2022 09:42-0500 Systolic blood pressure 114 mm[Hg] Marta Del Valle MD Work Phone: [facility] 09-05-2022 13:25-0500 Body height 157.5 cm Faith Starkey MD Work Phone: [facility] 09-05-2022 13:25-0500 Body mass index (BMI) [Ratio] 42.43 kg/m2 Faith Starkey MD Work Phone: [facility] 09-05-2022 13:25-0500 Body weight 105.23 kg Faith Starkey MD Work Phone: [facility] 09-05-2022 13:25-0500 Diastolic blood pressure 70 mm[Hg] Faith Starkey MD Work Phone: [facility] 09-05-2022 13:25-0500 Systolic blood pressure 124 mm[Hg] Faith Starkey MD Work Phone: [facility] 05-17-2021 13:53-0400 Body height 157.5 cm Faith Starkey MD Work Phone: [facility] 05-17-2021 13:53-0400 Body mass index (BMI) [Ratio] 44.45 kg/m2 Faith Starkey MD Work Phone: [facility] 05-17-2021 13:53-0400 Body weight 110.22 kg Faith Starkey MD Work Phone: [facility] 05-17-2021 13:53-0400 Diastolic blood pressure 78 mm[Hg] Faith Starkey MD Work Phone: [facility] 05-17-2021 13:53-0400 Systolic blood pressure 118 mm[Hg] Faith Starkey MD Work Phone: [facility] 07-27-2020 10:34-0400 BP Diastolic 88 mm[Hg] Marli Thompson [facility] 07-27-2020 10:34-0400 BP Systolic 132 mm[Hg] Marli Thompson [facility] 07-27-2020 10:32-0400 BMI (Body Mass Index) 41.5 kg/m2 Marli Thompson [facility] 07-27-2020 10:32-0400 Body Temperature 99.19 [degF] Marli Thompson [facility] 07-27-2020 10:32-0400 Body weight 102.92 kg Marli Thompson [facility] 07-27-2020 10:32-0400 Pulse (Heart Rate) 108 /min Marli Thompson [facility] 07-27-2020 10:32-0400 Pulse Oximetry 98 % Marli Thompson [facility] 07-27-2020 10:32-0400 Respiratory Rate 16 /min Marli Thompson [facility] 08-19-2019 10:49-0500 BMI (Body Mass Index) 38.89 kg/m2 [facility] 08-19-2019 10:49-0500 Body Temperature 98.2 [degF] [facility] 08-19-2019 10:49-0500 Body weight 96.44 kg Janes [facility] 08-19-2019 10:49-0500 BP Di[facility] 84 mm[Hg] [facility] 08-19-2019 10:49-0500 BP Systolic 135 mm[Hg] [facility] 08-19-2019 10:49-0500 Height 157.5 cm [facility] 08-19-2019 10:49-0500 Pulse (Heart Rate) 106 /min [facility] 07-29-2019 13:20-0400 Pulse (Heart Rate) 86 /min [facility] 07-29-2019 13:20-0400 Pulse Oximetry 98 % [facility] 07-29-2019 10:270400 BMI (Body Mass Index) 39.32 kg/m2 [facility] 07-29-2019 10:27-0400 Body Temperature 97.81 [degF] [facility] 07-29-2019 10:27-0400 Body weight 97.52 kg [facility] 07-29-2019 10:27-0400 BP Diastolic 77 mm[Hg] [facility] 07-29-2019 10:27-0400 BP Systolic 126 mm[Hg] [facility] 07-29-2019 10:27-0400 Height 157.5 cm [facility] 07-29-2019 10:27-0400 Respiratory Rate 18 /min [facility] 03-18-2019 23:29-0400 Body Temperature 98.91 [degF] Laurent [facility] 03-18-2019 23:29-0400 BP Diastolic 89 mm[Hg] Laurent [facility] 03-18-2019 23:29-0400 BP Systolic 149 mm[Hg] Laurent [facility] 03-18-2019 23:29-0400 Pulse (Heart Rate) 105 /min Laurent [facility] 03-18-2019 23:29-0400 Pulse Oximetry 100 % Laurent [facility] 03-18-2019 23:29-0400 Respiratory Rate 16 /min Laurent [facility] 03-18-2019 23:27-0400 BMI (Body Mass Index) 43.46 kg/m2 Laurent [facility] 03-18-2019 23:27-0400 Body weight 104.33 kg Laurent [facility] 03-18-2019 23:27-0400 Height 154.9 cm Laurent [facility] 02-18-2019 10:46-0400 BMI (Body Mass Index) 42.54 kg/m2 Janes Gutiérrez [facility] 02-18-2019 10:46-0400 Body Temperature 98.4 [degF] Janes [facility] 02-18-2019 10:46-0400 Body weight 105.51 kg Janes [facility] 02-18-2019 10:46-0400 BP Diastolic 96 mm[Hg] Janes [facility] 02-18-2019 10:46-0400 BP Systolic 143 mm[Hg] [facility] 02-18-2019 10:46-0400 Height 157.5 cm [facility] 02-18-2019 10:46-0400 Pulse (Heart Rate) 109 /min Janes Gutiérrez [facility] 08-20-2018 08:52-0500 BMI (Body Mass Index) 41.77 kg/m2 Janes Gutiérrez [facility] 08-20-2018 08:52-0500 Body Temperature 98.1 [degF] Janes Gutiérrez [facility] 08-20-2018 08:52-0500 BP Diastolic 86 mm[Hg] Janes Gutiérrez [facility] 08-20-2018 08:52-0500 BP Systolic 120 mm[Hg] Janes Gutiérrez [facility] 08-20-2018 08:52-0500 Height 157.5 cm [facility] 08-20-2018 08:52-0500 Pulse (Heart Rate) 118 /min Janes Gutiérrez [facility] 08-20-2018 08:52-0500 Weight 103.6 kg [facility] Encounters Encounter Date Encounter Type Care Provider Facility Start: 06-03-[address] Steffen peraza MD Work Phone: -[facility] Start: 06-03-2025 Non-patient / Non-visit Dr. Garrett Hernandez MD [facility] Start: 06-01-[address] Edel Bullock DO -[facility] Work Phone: Start: 06-01-[address] [facility] Facility :[facility] Start: 05-28-2025 Non-patient / Non-visit Dr. Garrett Hernandez MD -[facility] Start: 05-28-2025 Non-patient / Non-visit Dr. Mickey Bullock DO [facility] Start: 05-27-2025 Non-patient / Non-visit Dr. Garrett Hernandez MD -[facility] Start: 05-27-2025 Non-patient / Non-visit Dr. Mickey Bullock DO [facility] Start: 05-26-[address] [facility] Facility :[facility] Start: 05-26-2025 Non-patient / Non-visit Dr. Mickey Bullock DO [facility] Start: 05-25-2025 Non-patient / Non-visit Dr. Mickey Bullock DO [facility] Start: 05-24-2025 Non-patient / Non-visit Dr. Mickey Bullock DO [facility] Start: 05-24-2025 End: 05-28-2025 Evaluation and management of inpatient Dr. Edel Bullock DO [facility] 3 Work Phone: Start: 05-24-2025 ambulatory Levon Guerrero ty:[facility] Start: 05-15-2025 Non-patient / Non-visit Mariana Liu ins [facility] Start: 05-14-2025 Non-patient / Non-visit Mariana borja [facility] Start: 05-13-2025 Non-patient / Non-visit Dr. Elena Lao MD -[facility] Start: 05-12-2025 Non-patient / Non-visit Dr. Mickey Bullock DO -[facility] Start: 05-12-2025 ambulatory Edel Bernal cility:[facility] Start: 05-12-2025 End: 05-15-2025 Evaluation and management of inpatient [facility] Edel Bullock [facility] Work Phone: Start: 05-10-2025 End: 05-10-2025 ambulatory EDEL Beck [facility] Start: 05-06-2025 End: 05-06-[address] Edel Bullock DO [facility] Work Phone: Start: 05-06-2025 End: 05-06-[address] Steffen Eisenberg MD Work Phone: -[facility] Start: 05-06-2025 End: 05-06-2025 ambulatory EDEL R [facility] Start: 05-03-2025 End: 05-03-[address] [facility] Start: 04-29-2025 End: 04-29-2025 ambulatory [facility] Start: 04-28-2025 End: 04-28-[address] Steffen Eisenberg MD Work Phone: -[facility] Start: 04-28-2025 End: 04-28-[address] Edel Bullock DO [facility] Work Phone: Start: 04-28-2025 End: 04-28-[address] Edel Bullock DO [facility] Work Phone: Start: 04-28-2025 End: 04-28-[address] Steffen Eisenberg MD Work Phone: -[facility] Start: 04-28-2025 End: 04-28-2025 ambulatory Steffen Eisenberg Facility:[facility] Start: 04-26-2025 End: 04-26-2025 ambulatory EDEL DAMICO [facility] Start: 04-22-2025 End: 04-22-[address] Steffen Eisenberg MD Work Phone: -[facility] Start: 04-22-2025 End: 04-22-[address] Edel Bullock DO -[facility] Work Phone: Start: 04-22-2025 End: 04-22-2025 ambulatory Steffen Traorelay Facility:[facility] Start: 04-20-2025 End: 04-20-[address] Apple Lao MD -[facility] Work Phone: Start: 04-20-2025 End: 04-20-[address] Steffen Eisenberg MD Work Phone: -[facility] Start: 04-19-2025 ambulatory Edel Bernal cility:[facility] Start: 04-19-2025 Non-patient / Non-visit Kiley Whaley ms CN -[facility] Start: 04-19-2025 End: 04-19-2025 Patient encounter procedure Kiley Jain CN -[facility] Work Phone: Start: 04-19-2025 End: 04-19-[address] Steffen Eisenberg MD Work Phone: -[facility] Start: 04-15-2025 End: 04-15-[address] Steffen Eisenberg MD Work Phone: -Ultrasound [facility] Start: 04-15-2025 End: 04-15-[address] Edel Bullock DO -Ultrasound [facility] Work Phone: Start: 04-15-2025 End: 04-15-2025 ambulatory Steffen Eisenberg Facility:[facility] Start: 04-12-2025 End: 04-12-2025 ambulatory NO PRIMARY CARE [facility] Start: 04-08-2025 End: 04-08-2025 ambulatory NO PRIMARY CARE [facility] Start: 04-07-2025 End: 04-07-[address] Steffen Eisenberg MD Work Phone: [facility] Start: 04-07-2025 End: 04-07-[address] Edel Bullock DO [facility] Start: 04-07-2025 End: 04-07-[address] Edel Bullock DO [facility] Work Phone: Start: 04-07-2025 End: 04-07-[address] Steffen Eisenberg MD Work Phone: [facility] Start: 04-07-2025 End: 04-07-2025 ambulatory Steffen Eisenberg Facility:[facility] Start: 03-26-2025 End: 03-26-[address] Edel Bullock DO [facility] Work Phone: Start: 03-26-2025 End: 03-26-[address] Steffen Eisenberg MD Work Phone: [facility] Start: 03-10-2025 End: 03-10-[address] Steffen Eisenberg MD Work Phone: [facility] Work Phone: Start: 03-10-2025 End: 03-10-[address] Edel Bullock DO [facility] Specimen Work Phone: Start: 03-10-2025 End: 03-10-[address] Edel Bullock DO [facility] Work Phone: Start: 03-10-2025 End: 03-10-[address] Steffen Eisenberg MD Work Phone: [facility] Work Phone: Start: 03-10-2025 End: 03-10-2025 ambulatory Steffen Eisenberg Facility:[facility] Start: 03-05-2025 End: 03-05-[address] Steffen Eisenberg MD Work Phone: [facility] Work Phone: Start: 03-05-2025 End: 03-05-2025 Patient encounter procedure Kiley aJin CNM -Laboratory Work Phone: Start: 03-05-2025 End: 03-05-2025 ambulatory Steffen Eisenberg Facility:[facility] Start: 02-26-2025 End: 02-26-[address] Apple Lao MD -[facility] Work Phone: Start: 02-26-2025 End: 02-26-[address] Steffen Eisenberg MD Work Phone: [facility] Work Phone: Start: 02-26-2025 End: 02-26-2025 ambulatory Apple Lao Facility:[facility] Start: 02-23-2025 End: 02-23-2025 ambulatory [place] Haylie [facility] Start: 01-29-2025 End: 01-29-[address] Edel Bullock DO -[facility] Work Phone: Start: 01-29-2025 End: 01-29-2025 ambulatory Edel Bullock Facility:[facility] Start: 01-28-2025 End: 01-28-2025 ambulatory OSMANI Stallings [facility] Start: 01-01-2025 End: 01-01-[address] Apple Lao MD -[facility] Work Phone: Start: 01-01-2025 End: 01-01-2025 ambulatory Apple Lao Facility:[facility] Start: 12-28-2024 End: 12-28-2024 ambulatory MD [facility] Start: 12-03-2024 End: 12-03-[address] Edel Bullock DO -[facility] Work Phone: Start: 12-03-2024 End: 12-03-2024 ambulatory Edel Bullock Facility:[facility] Start: 11-10-2024 End: 11-10-2024 Emergency department patient visit Dr. Ld Fermin MD -Emergency Department Work Phone: Start: 11-05-2024 Encounter for genera l adult medical examination without abnormal findings Steffen Newfields [facility] Start: 11-05-2024 End: 11-05-[address] Edel Bullock DO -[facility] Work Phone: Start: 11-05-2024 End: 11-05-2024 ambulatory Steffen Newfields Facility:[facility] Start: 11-03-2024 End: 11-03-2024 ambulatory Facility:[facility] Start: 11-03-2024 End: 11-03-2024 Telemedicine consultation with patient Demarcus Miner PA-C Work Phone: Telemedicine Comment on above: Viral URI with cough (Primary Dx) Start: 11-03-2024 End: 11-04-2024 ambulatory Steffen Newfields Facility:[facility] Start: 10-23-2024 End: 10-23-2024 ambulatory Steffen Faina Facility:[facility] Start: 10-15-2024 End: 10-15-2024 ambulatory Steffen Newfields Facility:[facility] Start: 10-09-2024 End: 10-09-2024 ambulatory Steffen Faina Facility:[facility] Start: 10-09-2024 End: 10-09-2024 ambulatory Kiley Jain Facility:[facility] Start: 10-02-2024 ambulatory Steffen Newfields Facility :[facility] Start: 10-02-2024 End: 10-02-2024 Subsequent hospital visit by physician Tucker [facility]trasound 2 [facility] Comment on above: Encounter for pregna ncy test, result positive (HHS-HCC) Start: 10-02-2024 End: 10-02-2024 ambulatory [facility] Start: 09-25-2024 End: 09-25-2024 Subsequent hospital visit by physician Tucker Ultrasound 2 [facility] Comment on above: Encounter for pregna ncy test, result positive (HHS-HCC) Start: 09-25-2024 End: 09-25-2024 ambulatory [facility] Start: 09-15-2024 End: 09-15-2024 ambulatory [facility] Start: 09-11-2024 End: 09-11-2024 ambulatory [facility] Start: 09-09-2024 End: 09-09-2024 ambulatory [facility] Start: 09-04-2024 End: 09-04-2024 ambulatory [facility] Start: 08-25-2024 End: 08-25-2024 ambulatory [facility] Start: 08-21-2024 End: 08-21-2024 Subsequent hospital visit by physician Tucker Ultrasound 1 [facility] Comment on above: Encounter for assist ed reproductive fertility procedure cycle Start: 08-21-2024 End: 08-21-2024 ambulatory [facility] Start: 08-14-2024 End: 08-14-2024 Subsequent hospital visit by physician Tucker Ultrasound 2 [facility] Comment on above: Encounter for assist ed reproductive fertility procedure cycle Start: 08-14-2024 End: 08-14-2024 ambulatory [facility] Start: 08-04-2024 End: 08-04-[address] [facility] Facility:[facility] Start: 07-29-2024 End: 07-29-2024 Refill Marta Del Valle MD Work Phone: [facility] [place] Start: 07-20-2024 End: 07-20-2024 ambulatory No Primary Care Physician Facility:[facility] Start: 06-24-2024 End: 06-24-2024 Subsequent hospital visit by physician Tucker Jimenez 2 [facility] Comment on above: Encounter for assist ed reproductive fertility procedure cycle Start: 06-24-2024 End: 06-24-2024 ambulatory [facility] Start: 06-22-2024 End: 06-22-2024 Subsequent hospital visit by physician Tucker Ultrasound 2 [facility] Comment on above: Encounter for assist ed reproductive fertility procedure cycle Start: 06-22-2024 End: 06-22-2024 ambulatory [facility] Start: 06-19-2024 End: 06-19-2024 Subsequent hospital visit by physician Tucker Jimenez 2 [facility] Comment on above: Encounter for assist ed reproductive fertility procedure cycle Start: 06-19-2024 End: 06-19-2024 ambulatory [facility] Start: 06-15-2024 End: 06-15-2024 Subsequent hospital visit by physician Tucker Jimenez 2 [facility] Comment on above: Encounter for assist ed reproductive fertility procedure cycle Start: 06-15-2024 End: 06-15-2024 ambulatory [facility] Start: 01-12-2024 End: 01-12-2024 ambulatory Facility:[facility] Start: 01-12-2024 End: 01-12-2024 Patient encounter procedure Gina Edmond [facility] Work Phone: [facility] Comment on above: URI, acute (Primary Dx); Acute otitis media, right; Acute cough Start: 12-09-2023 Non-patient / Non-visit MARTA STEPHEN [facility] Start: 12-09-2023 End: 12-09-2023 ambulatory MARTA DEL VALLE [facility] Work Phone: Start: 12-09-2023 End: 12-09-2023 Patient encounter procedure MARTA DEL VALLE [facility]-Radiology, [facility] Work Phone: Start: 11-04-2023 End: 11-04-2023 Patient encounter procedure MARTA DEL VALLE [facility] Work Phone: Start: 05-01-2023 Patient encounter status Marta Del Valle MD Work Phone: [facility] Start: 05-01-2023 ambulatory MARTA DEL VALLE Facili ty:[facility] Start: 04-03-2023 ambulatory MARTA DEL VALLE Facili ty:[facility] Start: 01-09-2023 ambulatory MARTA DEL VALLE Facili ty:[facility] Start: 01-09-2023 End: 01-09-2023 Subsequent hospital visit by physician Lawrence Young MD Work Phone: [facility] Comment on above: Arrived Start: 12-19-2022 ambulatory SELF SELF Facility:[facility] Start: 09-27-2022 ambulatory SELF SELF Facility:[facility] Start: 09-27-2022 Encounter for genera l adult medical examination without abnormal findings MARTA DEL VALLE Facility:[facility] Start: 09-27-2022 End: 09-27-2022 Patient encounter status Marta Del Valle MD Work Phone: Primary [facility] Start: 09-27-2022 End: 09-27-2022 Periodic preventive med est patient 18-39 yrs Marta Del Valle MD Work Phone: [facility]patient [facility] Comment on above: Well adult exam (Cristy hector Dx); Prolonged ; Need for influenza vaccination; MELINA (generalized anxiety disorder); Gastroesophageal reflux disease without esophagitis; Recurrent major depressive disorder, in full remission Start: 09-05-2022 ambulatory SELF SELF Facility:[facility] Start: 09-05-2022 Encounter for gynecological examination (general) (routine) without abnormal findings FAITH STARKEY Facility:[facility] Start: 09-05-2022 End: 09-05-2022 Patient encounter procedure Faith Starkey MD Work Phone: [facility] [place] Start: 09-05-2022 End: 09-05-2022 Periodic preventive med est patient 18-39 yrs Faith Starkey MD Work Phone: [facility] [place] Comment on above: Well woman exam with routine gynecological exam (Primary Dx) Start: 08-10-2022 ambulatory MARTA DEL VALLE [facility] ty:[facility] Start: 10-03-2021 End: 10-07-2021 ambulatory [facility] Start: 09-27-2021 Patient encounter status Radha Starkey MD Work Phone: [facility] Start: 09-15-2021 End: 09-16-2021 ambulatory [facility] Start: 05-17-2021 End: 05-17-2021 Subsequent care visit Faith Starkey MD Work Phone: [facility] [place] Comment on above: Supervision of mirna nair first , antepartum (Primary Dx) Start: 08-23-2020 End: 08-23-2020 Patient encounter procedure WILL PRABHAKAR [facility] Start: 08-23-2020 End: 08-23-2020 Office outpatient new 30 minutes Will Prabhakar Work Phone: [facility] Comment on above: Acne vulgaris (Prima ry Dx); Dermal nevus of abdominal wall Start: 07-27-2020 End: 07-27-2020 Patient encounter procedure MARTA DEL VALLE [facility] Start: 07-27-2020 End: 07-27-2020 Office outpatient new 30 minutes Marli Thompson Work Phone: [facility] Urgent [facility] Comment on above: Close Exposure to Co vid-19 Virus (Primary Dx); Generalized body aches; Diarrhea, unspecified type Start: 08-19-2019 End: 08-19-2019 Office outpatient visit 15 minutes Janes Gutiérrez Work Phone: [facility] Comment on above: Leukocytosis, unspec ified type (Primary Dx) Start: 07-29-2019 End: 07-29-2019 Emergency department patient visit Robert Peterosn Work Phone: [facility] Comment on above: Epigastric pain (Cristy hector Dx) Start: 05-09-2019 End: 05-09-2019 Refill Marta Del Valle Work Phone: [facility] General Internal Medicine [facility] Start: 03-19-2019 Follow-up encounter Marta queen Work Phone: [facility] General Internal Medicine [facility] Comment on above: RE: Follow up from E R Visit Start: 03-19-2019 End: 03-19-2019 Patient encounter procedure Marta Del Valle Work Phone: [facility] Start: 03-18-2019 End: 03-19-2019 Emergency department patient visit Laurent Declan Duque Work Phone: [facility] Comment on above: Abdominal pain, unsp ecified abdominal location (Primary Dx); Chest pain, unspecified type; Leukocytosis, unspecified type Start: 03-18-2019 End: 03-18-2019 Patient encounter procedure Marta Del Valle Work Phone: [facility] Start: 02-18-2019 End: 01-22-2020 Office outpatient visit 15 minutes Janes Gutiérrez Work Phone: [facility] Comment on above: Leukocytosis, unspec ified type (Primary Dx) Start: 08-20-2018 End: 08-20-2018 Office outpatient visit 15 minutes Janes Gutiérrez Work Phone: [facility] Comment on above: Leukocytosis, unspec ified type (Primary Dx) Start: 12-09-2013 End: 12-27-2020 Patient encounter status Faith Starkey MD Work Phone: [facility] Start: 12-03-2013 End: 03-03-2014 ambulatory REBECA LAW [facility] Procedures Date Procedure Procedure Detail Performing Clinician Start: 05-28-[address] Steffen Eisenberg MD Work Phone: Start: 05-27-[address] Steffen Eisenberg MD Work Phone: Start: 05-27-2025 Gram stain microscopy Haylie Eisenberg MD Work Phone: Start: 05-27-2025 Microbial culture, routine Dr. Steffen Eisenberg MD Work Phone: Start: 05-27-2025 Incision and drainag e of abscess Dr. Steffen Eisenberg MD Work Phone: Start: 05-26-2025 CT of abdomen and pe lvis without contrast Dr. Steffen Eisenberg MD Work Phone: Start: 05-26-[address] Angela Eisenberg MD Work Phone: Start: 05-26-2025 Identification proce dure for living organism Dr. Steffen Eisenberg MD Work Phone: Start: 05-25-2025 Biopsy/Inj or Needle Placement Dr. Steffen Eisenberg MD Work Phone: Start: 05-25-[address] Steffen Eisenberg MD Work Phone: Start: 05-25-2025 Gram stain microscopy Haylie Eisenberg MD Work Phone: Start: 05-25-2025 Microbial culture, b anurag fluid Dr. Steffen Eisenberg MD Work Phone: Start: 05-24-2025 Urnls dip stick/tabl et reagent auto microscopy Dr. Steffen Eisenberg MD Work Phone: Start: 05-24-2025 Computed tomography of abdomen and pelvis with intravenous contrast Dr. Steffen Eisenberg MD Work Phone: Start: 05-24-2025 CT angiography of ch est with contrast Dr. Steffen Eisenberg MD Work Phone: Start: 05-24-[address] Steffen Eisenberg MD Work Phone: Start: 05-24-[address] Angela Eisenberg MD Work Phone: Start: 05-13-2025 Fibrinogen assay, quantitative Dr. Steffen Eisenberg MD Work Phone: Start: 05-12-2025 Hemoglobin F measure ment using Kleihauer-Betmateus method Dr. Steffen Eisenberg MD Work Phone: Comment on above: Kleihauer Betke Stud y Reference: Negative POSITIVE AB* Feto- maternal hemorrhage ( RBCs): 10 mL. TESTING PERFORMED AT [facility]. ORIGINAL REPORT ON FILE IN LAB [...] Work Phone: Comment on above: Performed at: [address] [id number] Director: Huan Kuhn PhD, Phone: [phone] Start: 03-10-2025 Gram stain microscopy Haylie Eisenberg MD Work Phone: Start: 03-10-2025 End: [...] Diagnostic mammograp hy computer-aided detcj bi Lawrence A Kiki MD Work Phone: Start: 09-05-2022 Microscopic observat [...] Peterson Work Phone: Start: 03-19-2019 Troponin measurement Park Duque Work Phone: Start: 03-19-2019 Standard chest [...] Duque Work Phone: Start: 03-19-2019 Troponin measurement Park Duque Work Phone: Start: 03-19-2019 12 lead [...] Edel Bullock DO H/O: section S/P Dr. Heather Bullock DO Plan of Treatment Date Care Activity Detail Author Start: 2039 Zoster Vaccines (1 of 2) Zoste r Vaccines (1 of 2) [facility] Start: 05-03-2031 DTaP/Tdap/Td Vaccine s (3 - Td or Tdap) DTaP/Tdap/Td Vaccines (3 - Td or Tdap) [facility] Start: 05-03-2031 Tetanus vaccination TETANUS [facility] Start: 05-03-2031 Urine microalbumin profile DTaP,Tdap,Td Vaccine (3 - Td or Tdap) [facility] Start: 08-27-2027 Tetanus vaccination [facility] Start: 09-05-2025 Screening for malign ant neoplasm of cervix [facility] Start: 05-28-2025 Patient discharge [facility] Start: 05-28-2025 Referral to service [facility] Start: 05-28-2025 Application, wound VAC [facility] Start: 05-27-2025 Anaerobic Culture Anaerobic Culture [facility] Start: 05-27-2025 Fungal Culture Fungal Culture [facility] Start: 05-27-2025 Fungal Smear Fungal Smear [facility] Start: 05-27-2025 Microbial culture, routine Wound Culture [facility] Start: 05-27-2025 Consultation for treatment [facility] Start: 05-27-2025 Mycology culture [facility] Start: 05-27-2025 Source specific culture [facility] Start: 05-26-2025 Consultation for treatment [facility] Start: 05-26-2025 Consultation [facility] Start: 05-26-2025 Application of intermittent pneumatic compression device [facility] Start: 05-26-2025 [facility] Start: 05-26-2025 Blood culture Blood Culture [facility] Start: 05-25-2025 Anaerobic microbial culture Anaerobic Culture [facility] Start: 05-25-2025 Microbial culture, b anurag fluid [facility] Start: 05-25-2025 Catheterization of vein [facility] Start: 05-25-2025 Oxygen therapy [facility] Start: 05-25-2025 Vital signs measurements [facility] Start: 05-25-2025 Prothrombin time [facility] Start: 05-24-2025 Following clinical pathway protocol [facility] Start: 05-24-2025 End: 05-24-2025 [facility] Start: 05-24-2025 Admission procedure [facility] Start: 05-24-2025 Biopsy/Inj or Needle Placement Biopsy/Inj or Needle Placement [facility] Start: 05-24-2025 Hospital admission, emergency, from emergency room, medical nature [facility] Start: 05-24-2025 [facility] Start: 05-24-2025 Bacteria identified in Blood by Culture Blood Culture [facility] Start: 05-24-2025 Blood culture Blood Culture [facility] Start: 05-15-2025 Patient discharge [facility] Start: 05-13-2025 Application of abdom inal corset [facility] Start: 05-13-2025 Administration of bl ood product [facility] Start: 05-13-2025 Consultation [facility] Start: 05-12-2025 End: 05-13-2025 [facility] Start: 05-12-2025 Administration of bl ood product [facility] Start: 05-12-2025 Administration of medication [facility] Start: 05-12-2025 Ambulation therapy management [facility] Start: 05-12-2025 Application of device [facility] Start: 05-12-2025 Application of intermittent pneumatic compression device [facility] Start: 05-12-2025 Assessment of risk o f venous thromboembolism [facility] Start: 05-12-2025 Catheterization of vein [facility] Start: 05-12-2025 Deep breathing and coughing exercises [facility] Start: 05-12-2025 Exercises [facility] Start: 05-12-2025 Measuring intake and output [facility] Start: 05-12-2025 Notification of physician [facility] Start: 05-12-2025 Procedure discontinued [facility] Start: 05-12-2025 Provision of activit y privileges [facility] Start: 05-12-2025 Skin care [facility] Start: 05-12-2025 Vital signs measurements [facility] Start: 05-12-2025 Wound care [facility] Start: 05-12-2025 Application of abdom inal corset [facility] Start: 05-12-2025 section Repeat C-Sect ion (Not Applicable) [facility] Start: 05-12-2025 Admission procedure [facility] Start: 04-19-2025 Nonstress test [facility] Start: 04-19-2025 Obstetric monitoring [facility] Start: 04-19-2025 [facility] Start: 04-19-2025 Vital signs measurements [facility] Start: 04-19-2025 Ultrasonography for biophysical profile without non-stress testing OB Biophysical Prof W/O NST [facility] Start: 04-07-2025 Comprehensive metabo lic 2000 panel - Serum or Plasma [facility] Start: 04-07-2025 Procedure [facility] Start: 03-10-2025 Source specific culture Genital Cult ure [facility] Start: 03-10-2025 Source specific culture [facility] Start: 02-26-2025 CBC W Auto Different ial panel - Blood [facility] Start: 02-26-2025 Measurement of gluco se 2 hours after glucose challenge for glucose tolerance test [facility] Start: 02-26-2025 Serologic test for syphilis [facility] Start: 02-26-2025 [facility] Start: 11-10-2024 End: 11-10-2024 [facility] Start: 10-02-2024 End: 10-02-2024 Patient encounter procedure 10/02/2024 9:15 AM EST Appointment [address] [phone] [facility] Start: 08-25-2024 End: 08-25-2024 Patient encounter procedure 08/25/2024 8:30 AM EST Appointment [address] [phone] [facility] Start: 08-21-2024 End: 08-21-2024 Patient encounter procedure 08/21/2024 7:45 AM EST Appointment [address] [phone] [facility] Start: 06-24-2024 End: 06-24-2024 Patient encounter procedure 06/24/2024 7:30 AM EDT Appointment [address] [phone] [facility] Start: 06-22-2024 End: 06-22-2024 Patient encounter procedure 06/22/2024 7:45 AM EDT Appointment [address] [phone] [facility] Start: 06-19-2024 End: 06-19-2024 Patient encounter procedure 06/19/2024 7:45 AM EDT Appointment [address] [phone] [facility] Start: 05-31-2024 COVID-19 Vaccine ( season) COVID-19 Vaccine ( season) [facility] Start: 05-31-2024 COVID-19 VACCINE () COVID-19 VACCINE () [facility] Start: 05-31-2024 COVID-19 Vaccine () COVID-19 Vaccine () [facility] Start: 05-31-2024 Influenza vaccination [facility] Start: 05-01-2024 PREVENTATIVE HEALTH VISIT PREV ENTATIVE HEALTH VISIT [facility] Start: 09-30-2023 Behavioral Health Screening Behavioral Health Screening [facility] Start: 09-27-2023 End: 09-27-2023 Patient encounter procedure 09/27/2023 Office Visit CLOTH FINISHER Faith Starkey MD [address] [place] [phone] [facility] [place] Start: 09-27-2023 PREVENTATIVE HEALTH VISIT PREV ENTATIVE HEALTH VISIT [facility] Start: 09-05-2023 PREVENTATIVE HEALTH VISIT PREV ENTATIVE HEALTH VISIT [facility] Start: 05-31-2023 Covid-19 Vaccine () Covid-19 Vaccine () [facility] Start: 05-01-2023 End: 05-01-2023 Patient encounter procedure 05/01/2023 Office Visit General Medicine Marta Del Valle MD [address] [place] [address], [place] [address] Primary Care Outpatient [facility] Start: 09-27-2022 End: 09-27-2022 Patient encounter procedure 09/27/2022 Office Visit General Medicine Marta Del Valle MD [address] [place] [address], [place] [address] Primary Care Outpatient [facility] Start: 09-02-2022 Microscopic observat ion [Identifier] in Cervix by Cyto stain PAP SMEAR [facility] Start: 09-02-2022 Screening for malign ant neoplasm of cervix PAP SMEAR [facility] Start: 05-31-2022 Influenza vaccination INFLUENZA VACC INE (#1) [facility] Start: 09-28-2021 PREVENTATIVE HEALTH VISIT PREV ENTATIVE HEALTH VISIT [facility] Start: 09-27-2021 End: 09-27-2021 Patient encounter procedure 09/27/2021 Office Visit General Medicine Marta Del Valle MD [address] [place] [phone] Primary Care [facility] [place] Start: 08-29-2021 End: 08-29-2021 Office Visit 08/29/2021 Office Visit Dermatology SrinivasWill MD [address] [place] [address] [phone] [facility] Start: 06-21-2021 End: 06-21-2021 Follow-up encounter 06/21/2021 Follow Up Visit CLOTH FINISHER Faith Starkey MD [address] [place] [phone] Obstetrics, Gynecology and Midwifery [facility] [place] Start: 06-07-2021 End: 06-07-2021 Follow-up encounter 06/07/2021 Follow Up Visit Maternal Medicine [facility] [place] Start: 05-31-2021 Influenza vaccination INFLUENZA VACC INE (#1) [facility] Start: 05-31-2021 End: 05-31-2021 Follow-up encounter 05/31/2021 Follow Up Visit CLOTH FINISHER Faith Starkey MD [address] [place] [phone] Obstetrics, Gynecology and [facility]wifery [facility] [place] Start: 05-22-2021 End: 05-22-2021 ambulatory 05/22/2021 Rehab Services Visit Sports Medicine and Rehabilitation Faith Starkey MD [address] [phone] Tere Cross, PT [address] [place] [address] Sports Medicine [facility] [place] Start: 04-01-2021 COVID-19 VACCINE (3 - Booster for Pfizer series) COVID-19 VACCINE (3 - Booster for Pfizer series) [facility] Start: 03-29-2021 Influenza vaccinatio n given Sequential Influenza Vaccine (#1) [facility] Comment on above: Postponed from 05/31 (Patient Refused) Start: 08-23-2020 End: 08-23-2020 Office Visit 08/23/2020 Office Visit Dermatology SrinivasWill MD [address] [place] [address] [phone] [facility] Start: 2019 Screening for malign ant neoplasm of cervix HPV Testing [facility] Start: 09-02-2019 End: 09-02-2019 Office Visit 09/02/2019 Office Visit CLOTH FINISHER Faith Starkey MD [address] [phone] CLOTH FINISHER [facility] Start: 08-19-2019 End: 08-19-2019 Office Visit 08/19/2019 Office Visit Oncology Janes Gutiérrez MD [address] [place] [address] [phone] [facility] Start: 05-31-2019 Influenza vaccination INFLUENZA VACC INE (#1) [facility] Start: 05-31-2019 Influenza vaccinatio n given [facility] Start: 05-08-2019 Microscopic observat ion Cyto stain Nom (Cvx) PAP SMEAR [facility] Start: 05-08-2019 Screening for malign ant neoplasm of cervix PAP SMEAR [facility] Start: 02-18-2019 End: 02-18-2019 Ambulatory 02/18/2019 Office Visit Oncology Janes Gutiérrez MD [address] [facility] [address] [place] [address] [phone] [facility] Start: 02-17-2019 End: 08-21-2019 Complete blood count with white cell differential, manual CBC and Differential Routine Leukocytosis, Unspecified Type Expected: 02/17/2019, Expires: 08/21/2019 [facility] Comment on above: Expected: 02/17/2019 , Expires: 08/21/2019 Start: 05-31-2018 Influenza vaccination SEQUENTI AL INFLUENZA VACCINE (#1) [facility] Start: 01-16-2016 Screening for malign ant neoplasm of cervix Pap Testing [facility] Start: 01-15-2014 Screening for malign ant neoplasm of cervix Cervical Cancer Screening [facility] Start: 2010 Screening for malign ant neoplasm of cervix HPV/Cotest [facility] Start: 2008 Hepatitis B vaccination HEP B VACCINE (1 of 3 - 19+ 3-dose series) [facility] Start: 2008 Hepatitis B Vaccine (1 of 3 - 19+ 3-dose series) Hepatitis B Vaccine (1 of 3 - 19+ 3-dose series) [facility] Start: 2008 Hepatitis B Vaccines (1 of 3 - 19+ 3-dose series) Hepatitis B Vaccines (1 of 3 - 19+ 3-dose series) [facility] Start: 2007 Anxiety Screening Anxiety Screening [facility] Start: 2007 [facility]: 2007 Hepatitis C antibody , confirmatory test Hepatitis C Screening [facility] Start: 2007 Hepatitis C screening Hepatitis C Sc reemichelle [facility] Start: 2007 HIV screening HIV Screening [facility] Start: 2004 HIV screening HIV Screening [facility] Start: 2002 Varicella vaccination Varicell a Vaccines (1 of 2 - 13+ 2-dose series) [facility] Start: 2001 Adolescent depressio n screening assessment Depression Screening (PHQ9) [facility] Start: 1992 History and physical examination, annual for health maintenance Wellness Visit [facility] Start: 1990 MMR Vaccines (1 of 1 - Standard series) MMR Vaccines (1 of 1 - Standard series) [facility] Start: 1989 HIV screening HIV Screening [facility] Start: 1989 Lipid panel Lipid Panel [facility] Start: 1989 Screening for malign ant neoplasm of cervix PAP SMEAR [facility] Start: 1989 Yearly Adult Physical Yearly Adult P hysical [facility] Alanine aminotransfe rase [Enzymatic activity/volume] in Serum or Plasma [facility] Alanine aminotransfe rase [Enzymatic activity/volume] in Serum or Plasma [facility] Albumin [Mass/volume ] in Serum or Plasma [facility] Albumin [Mass/volume ] in Serum or Plasma [facility] Alkaline phosphatase [Enzymatic activity/volume] in Serum or Plasma [facility] Alkaline phosphatase [Enzymatic activity/volume] in Serum or Plasma [facility] Anion gap in Serum o r Plasma [facility] Anion gap in Serum o r Plasma [facility] Bacteria identified in Unspecified specimen by Anaerobe culture [facility] Bilirubin, total measurement [facility] Bilirubin, total measurement [facility] BUN/Creatinine ratio [facility] BUN/Creatinine ratio [facility] Calcium [Mass/volume ] in Serum or Plasma [facility] Calcium [Mass/volume ] in Serum or Plasma [facility] Carbon dioxide, tota l [Moles/volume] in Central venous blood [facility] Carbon dioxide, tota l [Moles/volume] in Central venous blood [facility] Creatinine [Mass/vol ume] in Serum or Plasma [facility] Creatinine [Mass/vol ume] in Serum or Plasma [facility] Cytology Cervical or vaginal smear or scraping study CYTOLOGY-RETAIL MERCHANDISING COORDINATOR, 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 Cytology Routine Well woman exam with routine gynecological exam 09/05/2022 3:07 PM [facility] Erythrocyte mean corpuscular volume determination [facility] Erythrocyte mean corpuscular volume determination [facility] Fungus identified in Unspecified specimen by Culture [facility] Fungus identified in Unspecified specimen by Fungus stain [facility] Glucose [Mass/volume ] in Serum or Plasma [facility] Glucose [Mass/volume ] in Serum or Plasma [facility] Hematocrit [Volume Fraction] of Blood [facility] Hematocrit [Volume Fraction] of Blood [facility] Hemoglobin [Mass/vol ume] in Blood [facility] Hemoglobin [Mass/vol ume] in Blood [facility] INR in Blood by Coagulation assay [facility] Lactic acid measurement [facility] Leukocytes [#/volume ] in Blood [facility] Leukocytes [#/volume ] in Blood [facility] Mean corpuscular hemoglobin concentration determination [facility] Mean corpuscular hemoglobin concentration determination [facility] Mean corpuscular hemoglobin determination [facility] Mean corpuscular hemoglobin determination [facility] Measurement of renal function [facility] Measurement of renal function [facility] Neutrophil count [facility] Neutrophil count [facility] Neutrophil percent differential count [facility] Neutrophil percent differential count [facility] Patient Education [facility] Work Phone: Patient referral [facility] Work Phone: Platelets [#/volume] in Blood [facility] Platelets [#/volume] in Blood [facility] Potassium measurement [facility] Potassium measurement [facility] Red blood cell count [facility] Red blood cell count [facility] Red cell distributio n width determination [facility] Red cell distributio n width determination [facility] End: 06-19-2024 GERRY US Pelvis Limited Follicles - Follicle Studies Performed [facility] Work Phone: Comment on above: Once for 1 Occurrenc es starting 06/19/2024 until 06/19/2024 End: 06-22-2024 GERRY US Pelvis Limited Follicles - Follicle Studies Performed [facility] Work Phone: Comment on above: Once for 1 Occurrenc es starting 06/22/2024 until 06/22/2024 End: 06-24-2024 GERRY US Pelvis Limited Follicles - Follicle Studies Performed [facility] Work Phone: Comment on above: Once for 1 Occurrenc es starting 06/24/2024 until 06/24/2024 Serum chloride measurement [facility] Serum chloride measurement [facility] Sodium measurement [facility] Sodium measurement [facility] Streptococcus agalac tiae [Presence] in Unspecified specimen by Organism specific culture [facility] Total protein measurement [facility] Total protein measurement [facility] Urea nitrogen [Mass/volume] in Serum or Plasma [facility] Urea nitrogen [Mass/volume] in Serum or Plasma [facility] End: 08-14-2024 US Pelvis transvaginal [...] 1 Occurrenc es starting 06/24/2024 until 06/24/2024 [facility] Immunizations Immunization Date Immunization Notes Care Provider [facility] 03-10-2025 tetanus toxoid, redu mason diphtheria toxoid, and acellular pertussis vaccine, adsorbed Dr. Steffen Eisenberg MD Work Phone: [facility] 09-27-2022 influenza, injectabl e, quadrivalent, preservative free Marta Del Valle MD Work Phone: [facility] 09-27-2022 influenza quad vacci ne 0.5 ML Suspension Prefilled Syringe Marta Del Valle MD Work Phone: [facility] 09-27-2022 influenza virus vacc ine, unspecified formulation Gina Sahu APRJERAD Work Phone: [facility] 06-21-2021 influenza, injectabl e, quadrivalent, preservative free Faith Starkey MD Work Phone: [facility] 06-21-2021 influenza virus vacc ine, unspecified formulation Faith Starkey MD Work Phone: [facility] 05-03-2021 tetanus toxoid, redu mason diphtheria toxoid, and acellular pertussis vaccine, adsorbed Faith Starkey MD Work Phone: [facility] 02-04-2021 Covid (Pfizer) Dr. Steffen chao MD Work Phone: [facility] 01-14-2021 Covid (Pfizer) Dr. Steffen chao MD Work Phone: [facility] 09-07-2020 Influenza, injectabl e, [facility] [place] Canine Kidney, preservative free, quadrivalent Dr. Steffen Eisenberg MD Work Phone: [facility] 07-23-2019 influenza, injectabl e, quadrivalent, preservative free Faith Starkey MD Work Phone: [facility] 07-23-2019 influenza virus vacc ine, unspecified formulation Faith Starkey MD Work Phone: [facility] 07-31-2018 influenza, injectabl e, quadrivalent, contains preservative Marta Del Valle [facility] 07-31-2018 influenza, injectabl e, quadrivalent, preservative free Dr. Steffen Eisenberg MD Work Phone: [facility] 07-31-2018 influenza virus vacc ine, unspecified formulation [facility] 08-27-2017 tetanus toxoid, redu mason diphtheria toxoid, and acellular pertussis vaccine, adsorbed [facility] 11-15-2016 Human Papillomavirus 9-valent vaccine [facility] 06-18-2016 Human Papillomavirus 9-valent vaccine [facility] 05-08-2016 Human Papillomavirus 9-valent vaccine [facility] 09-20-2015 influenza virus vacc ine, whole virus [facility] 09-20-2015 influenza, injectabl e, quadrivalent, preservative free Dr. Steffen Eisenberg MD Work Phone: [facility] 08-18-2014 influenza virus vacc ine, whole virus [facility] 08-18-2014 influenza, injectabl e, quadrivalent, preservative free Dr. Steffen Eisenberg MD Work Phone: [facility] 08-30-2013 influenza virus vacc ine, unspecified formulation [facility] Payers Date Payer Category Payer [facility] [id number] 2024 Unknown [id number] 2024 Self-pay 2023 Managed Care (Private) [facility] [id number]. [id number] 2022 Unknown [id number] 2022 Unknown [id number] 2021 Private Health Insurance 1.2 .[id number]. 7.3.940280.315 2021 Unknown [id number] 2021 Unknown [id number] 2017 Unknown [id number] 1.2.840.022915.1.13.172.2. 7.3.499061.315 2017 Unknown [id number] 2017 Unknown [id number] 1.2.840.802857.1.13.385.2. 7.3.984996.315 2014 Unknown [id number] 2003 Unknown 1.2.840.800597. 1.13.159.2. 7.3.354685.315 2003 Unknown [id number] 1989 Unknown [id number] 2.16.840.1.881307.3.579.2. 903 1989 Unknown [id number] 2.16.840.1.540974.3.579.2. 903 1989 Unknown [id number] 2.16.840.1.670439.3.579.2. 902 1989 Unknown [id number] 2.16.840.1.080152.3.579.2. 900 1989 Unknown [id number] 2.16.840.1.269384.3.579.2. 900 1989 Unknown [id number] 2.16.840.1.049802.3.579.2. 594 1989 Unknown [id number] 2.16.840.1.286090.3.579.2. 594 1989 Unknown [id number] 2.16.840.1.782513.3.579.2. 594 1989 Unknown [id number] 2.16.840.1.506427.3.579.2. 594 1989 Unknown [id number] 2.16.840.1.918904.3.579.2. 594 1989 Unknown [id number] 2.16.840.1.022573.3.579.2. 594 1989 Unknown [id number] 2.16.840.1.056259.3.579.2. 594 1989 Unknown [id number] 2.16.840.1.306966.3.579.2. 594 1989 Unknown [id number] 2.16.840.1.975251.3.579.2. 594 1989 Unknown [id number] 2.16.840.1.577175.3.579.2. 594 1989 Unknown [id number] 2.16.840.1.874609.3.579.2. 594 1989 Unknown [id number] 2.16.840.1.108079.3.579.2. 1243 1989 Unknown [id number] 2.16.840.1.603266.3.579.2. 1242 1989 Unknown [id number] 2.16.840.1.464964.3.579.2. 1242 1989 Unknown [id number] 2.16.840.1.710744.3.579.2. 1242 1989 Unknown [id number] 2.16.840.1.883787.3.579.2. 1242 1989 Unknown [id number] 2.16.840.1.718065.3.579.2. 1242 1989 Unknown [id number] 2.16.840.1.345516.3.579.2. 1242 1989 Unknown [id number] 2.16.840.1.377643.3.579.2. 1242 1989 Unknown [id number] 2.16.840.1.140565.3.579.2. 1244 1989 Unknown [id number] 2.16.840.1.775427.3.579.2. 1244 1989 Unknown [id number] 2.16.840.1.865568.3.579.2. 1244 1989 Unknown [id number] 2.16.840.1.574450.3.579.2. 1244 1989 Unknown [id number] 2.16.840.1.131575.3.579.2. 1244 1989 Unknown [id number] 2.16.840.1.839488.3.579.2. 1244 1989 Unknown [id number] 2.16.840.1.153374.3.579.2. 1244 1989 Unknown [id number] 2.16.840.1.793221.3.579.2. 1244 1989 Unknown [id number] 2.16.840.1.637470.3.579.2. 1244 1989 Unknown [id number] 2.16.840.1.915726.3.579.2. 1245 1989 Unknown [id number] 2.16.840.1.958551.3.579.2. 1245 1989 Unknown [id number] 2.16.840.1.553989.3.579.2. 1245 1989 Unknown [id number] 2.16.840.1.831744.3.579.2. 1245 1989 Unknown [id number] 2.16.840.1.041205.3.579.2. 479 1989 Unknown [id number] 2.16.840.1.811265.3.579.2. 479 1989 Unknown [id number] 2.16.840.1.086543.3.579.2. 479 1989 Unknown [id number] 2.16.840.1.173309.3.579.2. 479 1989 Unknown [id number] 2.16.840.1.182759.3.579.2. 479 1989 Unknown [id number] 2.16.840.1.983425.3.579.2. 9 1989 Unknown [id number] 2.16.840.1.666049.3.579.2. 479 1989 Unknown [id number] 2.16.840.1.750587.3.579.2. 479 1989 Unknown [id number] 2.16.840.1.524903.3.579.2. 479 1989 Unknown [id number] 2.16.840.1.457872.3.579.2. 479 Unknown [id number] 2.16.840.1.807028.3.579.2. 462 Unknown [id number] 2.16.840.1.040170.3.579.2. 462 Unknown [id number] 2.16.840.1.623228.3.579.2. 462 Unknown [id number] 2.16840.1.726765.3.579.2. 462 Unknown [id number] 2.840.1.003115.3.579.2. 462 Unknown [id number] 2.840.1.180992.3.579.2. 462 Unknown [id number] 2.840.1.274182.3.579.2. 462 Unknown [id number] 2.840.1.913738.3.579.2. 462 Unknown [id number] 2.840.1.725448.3.579.2. 462 Unknown [id number] 2.840.1.432493.3.579.2. 462 Unknown [id number] 2.840.1.441952.3.579.2. 462 Unknown [id number] 2.840.1.815744.3.579.2. 462 Unknown [id number] 2.840.1.279157.3.579.2. 462 Unknown [id number] .840.1.893458.3.579.2. 462 Unknown [id number] 2.840.1.719585.3.579.2. 462 Unknown [id number] 2.840.1.605051.3.579.2. 462 Unknown [id number] 2.840.1.027472.3.579.2. 462 Unknown [id number] .840.1.016657.3.579.2. 462 Unknown [id number] 2.840.1.759073.3.579.2. 462 Unknown [id number] 2.840.1.135635.3.579.2. 462 Unknown [id number] 2.840.1.253254.3.579.2. 462 Unknown [id number] 2.16.840.1.755334.3.579.2. 462 Unknown [id number] 2.16.840.1.131052.3.579.2. 462 Unknown [id number] 2.16.840.1.798087.3.579.2. 462 Unknown [id number] 2.16.840.1.051714.3.579.2. 462 Unknown [id number] 2.16.840.1.433894.3.579.2. 462 Unknown [id number] 2.16.840.1.075659.3.579.2. 462 Unknown [id number] 2.16.840.1.337203.3.579.2. 462 Unknown [id number] 2.16.840.1.193775.3.579.2. 462 Unknown [id number] 2.16.840.1.065389.3.579.2. 462 Unknown [id number] 2.16.840.1.621819.3.579.2. 462 Unknown [id number] 2.16.840.1.819079.3.579.2. 462 Unknown [id number] 2.16.840.1.978399.3.579.2. 462 Unknown [id number] 2.16.840.1.250844.3.579.2. 462 Unknown [id number] 2.16.840.1.325226.3.579.2. 462 Unknown [id number] 2.16.840.1.150171.3.579.2. 462 Unknown [id number] 2.16.840.1.836858.3.579.2. 462 Unknown [id number] 2.16.840.1.178731.3.579.2. 462 Unknown [id number] 2.16.840.1.474714.3.579.2. 462 Unknown [id number] 2.16.840.1.473836.3.579.2. 462 Unknown [id number] 2.16840.1.121041.3.579.2. 462 Unknown [id number] 2.16840.1.732208.3.579.2. 462 Unknown [id number] 2.16840.1.754246.3.579.2. 462 Unknown [id number] 2.0.1.842135.3.579.2. 462 Social History Date Type Detail Facility Start: 02-20-2012 End: 08-20-2018 Tobacco smoking status [facility] Never smoker [facility] Start: 1990 Sex Assigned At Not on file [facility] Start: 07-31-2018 End: 05-24-2025 Tobacco smoking status [facility] Former smoker [facility] Start: 10-01-2009 End: 10-01-2010 History of tobacco use Current smoker [facility] Start: 10-01-2009 End: 10-01-2010 History of tobacco use Cigarette Smoker [facility] Start: 07-31-2018 End: 01-12-2024 Cigarettes smoked current (pack per day) - Reported [facility] Start: 12-09-2013 Alcohol Comment 1-2 times per week, up to 2 glasses of wine at a time [facility] Start: 07-29-2019 End: 01-12-2024 Alcohol intake Current drinker of alcohol (finding) [facility] Start: 02-20-2012 End: 08-23-2020 Tobacco use and exposure Never used [facility] Start: 06-05-2024 End: 10-02-2024 Exposure to SARS-CoV-2 (event) Not sure [facility] Exposure to SARS-CoV -2 (event) Yes [facility] Start: 07-31-2018 End: 01-12-2024 Alcohol intake Yes [facility] Start: 05-03-2021 End: 05-01-2023 Alcohol intake Ex-drinker (finding) [facility] Start: 12-09-2013 Alcohol Comment 1-2 times per week, up to 2 glasses of wine at a time [facility] Start: 10-21-2020 [facility] Start: 08-26-2022 End: 09-27-2022 Exposure to SARS-CoV-2 (event) Unable to assess [facility] Start: 11-04-2023 Tobacco smoking stat us [facility] Unknown if ever smoked [facility] Start: 1990 Sex Assigned At Female W [facility] Start: 02-20-2012 Alcohol Comment occassional [facility] Depression Score 10 [facility] Gender identity Identifies as fe male gender (finding) [facility] Goals Date Patient Goal Desired Activity /State Personal health goal Personal health goal Comment on above: Formatting of this n ote might be different from the original. Goal weight 150 pounds Comment on above: Goal weight 150 poun ds Formatting of this n ote might be different from the original. Goal weight 150 pounds Functional Status Date Assessment Result Facility 05-28-2025 Functional status Ambulates;Up ad randi [facility] Work Phone: 05-12-2025 Functional status Activity Abili ty Bedrest;Post Op [facility] Work Phone: Mental Status Date Assessment Result Facility 05-28-2025 Cognitive function Level Of Cons ciousness Awake;Alert;Appropriate;Follo ws [facility] Work Phone: 05-27-2025 Cognitive function Voice/Name [facility] Work Phone: 05-24-2025 Cognitive function Level Of Cons ciousness Awake;Alert;Appropriate;Follo ws Commands [facility] Work Phone: 11-10-2024 Cognitive function Voice/Name [facility] Work Phone: Clinical Notes 05-17-2021 to 05-28-2025 Note Date & Type Note Facility 05-28-2025 Discharge summary Note Date/Time May 28, 2025 5:16pm [facility] Medical Records Department [address] [place] [address] Discharge Summary 05/28/25 1705 MR#: [id number] Acct: [id number] Name: BARBY CABALLERO Rep #:[id number] : 1990 34 From: Edel Bullock DO PCP: Dr. Steffen Eisenberg MD Status:ADM IN Location: SC3 [id number] Providers Date of Admission: 05/24/25 Primary Care Physician: Dr. Steffen Eisenberg MD Consultations 05/26/25 17:52 Consult: Infectious Disease Routine Consulting Provider: Levon Schmid Reason for Consult: fever, abscess postop, unresponsive to abx and drainage EMERGENT Consult: No MD Notified: Yes Date Notified: 05/26/25 Time Notified: 17:53 Method of Notification: Text 05/26/25 23:05 Consult: Onc/Wound/water purifier operator Routine Comment: Reason for Consult:: post op wound management 05/27/25 08:50 Consult: Onc/Wound/water purifier operator Routine Comment: Reason for Consult:: abdominal wound -- wound VAC Reason For Visit: SOFT TISSUE ABSCESS STATUS POST CSECTION Diagnosis Discharge Diagnosis (1) Subcutaneous abscess: Status: Acute Code(s): L02.91 - Cutaneous abscess, unspecified Plan plan today is to see wound nurse and plan for discharge looking forward to more recommendations from ID about antibiotic selection of coag neg staph and morganii sp morgani in wound. She would like to be discharged tonight if at all possible. Anemia- status post iron infusion. She is asymptomatic at this time. No need forblood transfusion. Hypokalemia- resolved. Medications at Discharge Home Medications escitalopram oxalate 10 mg tablet (Lexapro) 10 mg PO DAILY anxiety/depression #30 tabs 07/20/24 docosahexaenoic acid 200 mg capsule ( DHA) 200 mg PO DAILY #90caps 07/28/24 famotidine 40 mg tablet (Pepcid) 40 mg PO DAILY indigestion #30 tabs 01/11/25 breast pump #1 ea 01/29/25 ibuprofen 800 mg tablet 800 mg PO Q8H PRN pain #30 tabs 05/12/25 acetaminophen 500 mg capsule 1,000 mg PO Q6H PRN fever or pain 05/24/25 CPAP - Continuous Positive Airway Pressure([facility] INFORMATIONAL USE ONLY) 05/28/25 oxycodone 5 mg tablet 5 mg PO Q4H PRN PRN Pain Score 4-10 7 days #30 tabs 05/28/25 sulfamethoxazole 800 mg-trimethoprim 160 mg tablet (Bactrim DS) 1 tab PO BID 8 days #16 tabs 05/28/25 Hospital Course Operations - (incision and drainage of abdominal wall abscess ) Summary of Care Provided Minutes Spent on Discharge: 30 Hospital Course: The patient was admitted on 05/24/2025 through the emergency room for fever chills and a finding on CAT scan indicative of a 15 cm abdominal wall abscess lying in the subcutaneous space. She is status post section from 05/12/2025. The patient was started on Zosyn and admitted to the [facility] floor with a consultation for interventional radiology for the next morning. On 05/25/2025 she underwent interventional radiology procedure where they drained 150 cc of bloody fluid from the abdomen and sent for culture. The patient started to clinically improve for a day and she was observed while we waited forculture results. On hospital day #3 however she spiked a fever again and becametachycardic the decision was made to start vancomycin and consult infectious disease and general surgery. A repeat CAT scan showed that the abscess was downto 12 cm and tracking to the incision. On on 05/27/2025 she underwent an incision and drainage of her section wound by Dr. Hernandez . The wound was packed and she remained on the medical surgical floor on vancomycin and Zosyn. Later in the day the vancomycin was discontinued by infectious disease. Her blood culture did come back positive however this was deemed to be a contaminant by infectious disease. On 05/28/2025 the patient proved to be clinically stable and the decision was made to discharge her to home with Bactrim for 10 days. The wound nurse came by and applied a wound VAC and she will be following up with the wound clinic outpatient. Physical Exam Narrative She is alert and oriented x 3. She is in no acute distress. Dressing is clean dry and intact. Wound appears to be stable Const alert, oriented x3 and no apparent distress HEENT normocephalic Resp normal respiratory effort and normal air movement GI soft to palpation, non-tender and non-distended Rectal Exam: other Other Details: Incision is clean, dry, and intact no CVA tenderness Extremity normal to inspection General Extremity: edema bilateral (trace ) Weight / BMI Weight Weight: 258 lb 2.581 oz Body Mass Index (BMI) 47.2 ABG / Lab / Microbiology Data 05/28/25 05:30 05/28/25 05:30 Laboratory: Laboratory Results - last 24 hr 05/28/25 05:30: WBC 11.5 H, RBC 2.70 L, Hgb 7.9 L, Hct 24.1 L, MCV 89.3, MCH 29.3, MCHC 32.8, RDW Std Deviation 45.9 H, RDW Coeff of Tanner 14.1, Plt Count 331,MPV 8.8, Immature Gran % (Auto) 1.100 H, Neut % (Auto) 77.6 H, Lymph % (Auto) 12.9 L, [place] % (Auto) 7.9, Eos % (Auto) 0.4, Baso % (Auto) 0.1, Absolute Neuts (auto) 9.0 H, Absolute Lymphs (auto) 1.49, Nucleated RBC % 0, Sodium 141, Potassium 3.3, Chloride 109 H, Carbon Dioxide 17.8 L, Anion Gap 14, BUN 10, Creatinine 1.02, Estim Creat Clear Calc 93.45, Est GFR (MDRD) Non-Af 74, BUN/Creatinine Ratio 10.0, Glucose 89, Calcium 8.4 Microbiology: Microbiology 05/27/25 08:41 Incision/Surgical Site Gram Stain - Final 05/27/25 08:41 Incision/Surgical Site Wound Culture - Preliminary Gram negative ryann 05/26/25 16:20 Blood Culture (Wb) - Left Wrist Bacteria Detection (PCR) - Final Coag Negative Staph 05/26/25 16:20 Blood Culture (Wb) - Left Wrist Blood Culture - Preliminary Coag Negative Staph 05/25/25 10:25 Interface Orders Gram Stain - Final 05/25/25 10:25 Interface Orders Body Fluid Culture - Final Morganella morganii sp morgani 05/25/25 10:25 Interface Orders Anaerobic Culture - Preliminary Checking for anaerobes, further studies to follow. 05/24/25 19:45 Blood Culture (Wb) - Anticubital Right Blood Culture - Preliminary No growth in 48 hours. 05/24/25 19:30 Blood Culture (Wb) - Left Hand Blood Culture - Preliminary No growth in 48 hours. D/C Instructions Discharge Activity: May Drive and May Shower May resume sexual activity in: 4-6 weeks Weight Bearing Status: Weight bearing as tolerated Lifting Restricted to (Lbs): 10 Call your doctor if your incision/area has: Sudden Increased Bleeding, IncreasedPain/ Swelling, Increased Redness, Foul Smelling Discharge and Swelling at the incision site Call your doctor if you observe: Fever of 101 or Higher, Using more than 1 pad per hour, Dizziness, Fainting spells and Chest pain Change Dressing in: leave in place till F/U Remove Dressing in: do not remove dressing DC O2, CPAP, BIPAP Needs Home O2 Discharge instructions: No DC home with Oxygen: No Please Follow Up With: Edel Bullock DO When: 2 weeks Meaningful Use Info Meaningful Use Meaningful Use Diagnoses (Choose all that apply): None applicable Discharge Plan Admission Admit Date/Time: 05/24/25 19:36 Primary Reason for Your Visit: abdominal abscess Attending Provider: Edel Bullock Primary Care Provider: Steffen Eisenberg Consulting Providers: Levon Schmid Instructions Patient Instructions: Abscess Drainage, Guanaco Hernández Drain Tube Dc, Post Op Drain Emptying Steps Discharge Orders/Prescriptions Prescriptions: New sulfamethoxazole-trimethoprim [Bactrim DS] 800-160 mg tablet 1 tab PO BID 8 Days Qty: 16 0RF oxycodone 5 mg Tablet 5 mg PO Q4H PRN PRN (Reason: Pain Score 4-10) 7 Days Qty: 30 0RF Continued escitalopram oxalate [Lexapro] 10 mg tablet 10 mg PO DAILY Qty: 30 5RF (DME) breast pump Device See Rx Instructions .ROUTE .MEDSUPPLY Qty: 1 0RF Rx Instructions: As directed ibuprofen 800 mg tablet 800 mg PO Q8H PRN (Reason: pain) Qty: 30 0RF (DME) CPAP - Continuous Positive Airway Pressure([facility] INFORMATIONAL USE ONLY) Device See Rx Instructions .ROUTE Patient Comments: Autoset CPAP from [employer] Rx Instructions: As directed DHA 200 mg capsule 200 mg PO DAILY Qty: 90 4RF famotidine [Pepcid] 40 mg tablet 40 mg PO DAILY Qty: 30 5RF No Action acetaminophen 500 mg capsule 1,000 mg PO Q6H PRN (Reason: fever or pain) Referrals / Follow Up: Steffen Eisenberg MD [Primary Care Provider] - Disposition Disposition (needs filled in before D/C Order can be placed): Home, Self Care Charges/Coding Multi Select Codes Visit Charges Visit Charges: 44334 Disch Hosp 05/28/25 1716 <Electronically signed by Edel Bullock DO> Cosigner Signature (if applicable): CC: Dr. Steffen Eisenberg MD; Dr. Edel Bullock DO~ Signed [facility] Work Phone: 1(224) 111-976408-29-2025 Discharge summary [facility] Medical Records Department [address] [place] [address] Discharge Summary 05/28/25 1705 MR#: [id number] Acct: [id number] Name: BARBY CABALLERO Rep #:[id number] : 1990 34 From: Edel Bullock DO PCP: Dr. Steffen Eisenberg MD Status:ADM IN Location: [place] [address] Providers Date of Admission: 05/24/25 Primary Care Physician: Dr. Steffen Eisenberg MD Consultations 05/26/25 17:52 Consult: Infectious Disease Routine Consulting Provider: Levon Schmid Reason for Consult: fever, abscess postop, unresponsive to abx and drainage EMERGENT Consult: No MD Notified: Yes Date Notified: 05/26/25 Time Notified: 17:53 Method of Notification: Text 05/26/25 23:05 Consult: Onc/Wound/water purifier operator Routine Comment: Reason for Consult:: post op wound management 05/27/25 08:50 Consult: Onc/Wound/water purifier operator Routine Comment: Reason for Consult:: abdominal wound -- wound VAC Reason For Visit: SOFT TISSUE ABSCESS STATUS POST CSECTION Diagnosis Discharge Diagnosis (1) Subcutaneous abscess: Status: Acute Code(s): L02.91 - Cutaneous abscess, unspecified Plan plan today is to see wound nurse and plan for discharge looking forward to more recommendations from ID about antibiotic selection of coag neg staph and morganii sp morgani in wound. She would like to be discharged tonight if at all possible. Anemia- status post iron infusion. She is asymptomatic at this time. No need forblood transfusion. Hypokalemia- resolved. Medications at Discharge Home Medications escitalopram oxalate 10 mg tablet (Lexapro) 10 mg PO DAILY anxiety/depression #30 tabs 07/20/24 docosahexaenoic acid 200 mg capsule ( DHA) 200 mg PO DAILY #90caps 07/28/24 famotidine 40 mg tablet (Pepcid) 40 mg PO DAILY indigestion #30 tabs 01/11/25 breast pump #1 ea 01/29/25 ibuprofen 800 mg tablet 800 mg PO Q8H PRN pain #30 tabs 05/12/25 acetaminophen 500 mg capsule 1,000 mg PO Q6H PRN fever or pain 05/24/25 CPAP - Continuous Positive Airway Pressure([facility] INFORMATIONAL USE ONLY) 05/28/25 oxycodone 5 mg tablet 5 mg PO Q4H PRN PRN Pain Score 4-10 7 days #30 tabs 05/28/25 sulfamethoxazole 800 mg-trimethoprim 160 mg tablet (Bactrim DS) 1 tab PO BID 8 days #16 tabs 05/28/25 Hospital Course Operations - (incision and drainage of abdominal wall abscess ) Summary of Care Provided Minutes Spent on Discharge: 30 Hospital Course: The patient was admitted on 05/24/2025 through the emergency room for fever chills and a finding on CAT scan indicative of a 15 cm abdominal wall abscess lying in the subcutaneous space. She is statuspost section from 05/12/2025. The patient was started on Zosyn and admitted to the [facility] floor with a consultation for interventional radiology for the next morning. On 05/25/2025 she underwent interventional radiology procedure where they drained 150 cc of bloody fluid from the abdomen and sent for culture. The patient started to clinically improve for a day and she was observed while we waited forculture results. On hospital day #3 however she spiked a fever again and becametachycardic the decision was made to start vancomycin and consult infectious disease and general surgery. A repeat CAT scan showed that the abscess was downto 12 cm and tracking to the incision. On on 05/27/2025 she underwent an incision and drainage of her section wound by Dr. Hernandez . The wound was packed and she remained on the medical surgical floor on vancomycin and Zosyn. Later in the day the vancomycin was discontinued by infectious disease. Her blood culture did come back positive however this was deemed to be a contaminant by infectious disease. On 05/28/2025 the patient proved to be clinically stable and the decision was made to discharge her to home with Bactrim for 10 days. The wound nurse came by and applied a wound VAC and she will be following up with the wound clinic outpatient. Physical Exam Narrative She is alert and oriented x 3. She is in no acute distress. Dressing is clean dry and intact. Wound appears to be stable Const alert, oriented x3 and no apparent distress HEENT normocephalic Resp normal respiratory effort and normal air movement GI soft to palpation, non-tender and non-distended Rectal Exam: other Other Details: Incision is clean, dry, and intact no CVA tenderness Extremity normal to inspection General Extremity: edema bilateral (trace ) Weight / BMI Weight Weight: 258 lb 2.581 oz Body Mass Index (BMI) 47.2 ABG / Lab / Microbiology Data 05/28/25 05:30 05/28/25 05:30 Laboratory: Laboratory Results - last 24 hr 05/28/25 05:30: WBC 11.5 H, RBC 2.70 L, Hgb 7.9 L, Hct 24.1 L, MCV 89.3, MCH 29.3, MCHC 32.8, RDW Std Deviation 45.9 H, RDW Coeff of Tanner 14.1, Plt Count 331,MPV 8.8, Immature Gran % (Auto) 1.100 H, Neut % (Auto) 77.6 H, Lymph % (Auto) 12.9 L, [place] % (Auto) 7.9, Eos % (Auto) 0.4, Baso % (Auto) 0.1, Absolute Neuts (auto) 9.0 H, Absolute Lymphs (auto) 1.49, Nucleated RBC % 0, Sodium 141, Potassium 3.3, Chloride 109 H, Carbon Dioxide 17.8 L, Anion Gap 14, BUN 10, Creatinine 1.02, Estim Creat Clear Calc 93.45, Est GFR (MDRD) Non-Af 74, BUN/Creatinine Ratio 10.0, Glucose 89, Calcium 8.4 Microbiology: Microbiology 05/27/25 08:41 Incision/Surgical Site Gram Stain - Final 05/27/25 08:41 Incision/Surgical Site Wound Culture - Preliminary Gram negative ryann 05/26/25 16:20 Blood Culture (Wb) - Left Wrist Bacteria Detection (PCR) - Final Coag Negative Staph 05/26/25 16:20 Blood Culture (Wb) - Left Wrist Blood Culture - Preliminary Coag Negative Staph 05/25/25 10:25 Interface Orders Gram Stain - Final 05/25/25 10:25 Interface Orders Body Fluid Culture - Final Morganella morganii sp morgani 05/25/25 10:25 Interface Orders Anaerobic Culture - Preliminary Checking for anaerobes, further studies to follow. 05/24/25 19:45 Blood Culture (Wb) - Anticubital Right Blood Culture - Preliminary No growth in 48 hours. 05/24/25 19:30 Blood Culture (Wb) - Left Hand Blood Culture - Preliminary No growth in 48 hours. D/C Instructions Discharge Activity: May Drive and May Shower May resume sexual activity in: 4-6 weeks Weight Bearing Status: Weight bearing as tolerated Lifting Restricted to (Lbs): 10 Call your doctor if your incision/area has: Sudden Increased Bleeding, IncreasedPain/ Swelling, Increased Redness, Foul Smelling Discharge and Swelling at the incision site Call your doctor if you observe: Fever of 101 or Higher, Using more than 1 pad per hour, Dizziness,Fainting spells and Chest pain Change Dressing in: leave in place till F/U Remove Dressing in: do not remove dressing DC O2, CPAP, BIPAP Needs Home O2 Discharge instructions: No DC home with Oxygen: No Please Follow Up With: Edel Bullock DO When: 2 weeks Meaningful Use Info Meaningful Use Meaningful Use Diagnoses (Choose all that apply): None applicable Discharge Plan Admission Admit Date/Time: 05/24/25 19:36 Primary Reason for Your Visit: abdominal abscess Attending Provider: Edel Bullock Primary Care Provider: Steffen Eisenberg Consulting Providers: Levon Schmid Instructions Patient Instructions: Abscess Drainage, Guanaco Hernández Drain Tube Dc, Post Op Drain Emptying Steps Discharge Orders/Prescriptions Prescriptions: New sulfamethoxazole-trimethoprim [Bactrim DS] 800-160 mg tablet 1 tab PO BID 8 Days Qty: 16 0RF oxycodone 5 mg Tablet 5 mg PO Q4H PRN PRN (Reason: Pain Score 4-10) 7 Days Qty: 30 0RF Continued escitalopram oxalate [Lexapro] 10 mg tablet 10 mg PO DAILY Qty: 30 5RF (DME) breast pump Device See Rx Instructions .ROUTE .MEDSUPPLY Qty: 1 0RF Rx Instructions: As directed ibuprofen 800 mg tablet 800 mg PO Q8H PRN (Reason: pain) Qty: 30 0RF (DME) CPAP - Continuous Positive Airway Pressure([facility] INFORMATIONAL USE ONLY) Device See Rx Instructions .ROUTE Patient Comments: Autoset CPAP from [employer] Rx Instructions: As directed DHA 200 mg capsule 200 mg PO DAILY Qty: 90 4RF famotidine [Pepcid] 40 mg tablet 40 mg PO DAILY Qty: 30 5RF No Action acetaminophen 500 mg capsule 1,000 mg PO Q6H PRN (Reason: fever or pain) Referrals / Follow Up: Steffen Eisenberg MD [Primary Care Provider] - Disposition Disposition (needs filled in before D/C Order can be placed): Home, Self Care Charges/Coding Multi Select Codes Visit Charges Visit Charges: 54063 Disch Hosp 05/28/25 1719 Cosigner Signature (if applicable): CC: Dr. Steffen Eisenberg MD; Dr. Edel Bullock, DO~ Signed [facility]08-29-2025 [facility] Progress note Author Garrett Hernandez [facility] Note Date/Time May 28, 2025 11 :48am [facility] Medical Records Department [address] [place] [address] Progress Note - Surgery 05/28/25 1144 MR#: [id number] Acct: [id number] Name: BARBY CABALLERO Rep #:[id number] : 1990 34 From: Garrett Hernandez MD PCP: Dr. Steffen Eisenberg MD Status:ADM IN Location: MS3 [id number] Subjective Subjective Patient doing well today. Abdomen is feeling much better since drainage of abscess. Dressing was changed overnight due to Betadine bleeding through the dressing. White blood cell count greatly decreased. Patient was seen by wound care nurse and we are anticipating wound VAC placement today and possibly discharge home later today. Objective Data Objective Data Vital Signs: Vital Signs Temp Pulse Resp BP Pulse Ox O2 Del Method O2 Flow Rate 98.1 F 84 14 136/84 H 97 Room Air 2 05/28/25 08:35 05/28/25 08:35 05/28/25 08:35 05/28/25 08:35 05/28/25 08:35 05/28/25 08:35 05/27/25 11:07 Oxygen Flow Rate (L/min) 2 Oxygen Delivery Method Room Air Weight: 258 lb 2.581 oz Body Mass Index (BMI) 47.2 Intake & Output: Intake and Output for Last 24 Hours 05/26/25 05/27/25 05/28/25 23:59 23:59 23:59 Intake Total 2793.25 / 2793.25 762.00 / 1062.00 819 / 819 Output Total Balance 2793.25 / 2793.25 752.00 / 1052.00 819 / 819 Lab / Micro Data 05/28/25 05:30 05/28/25 05:30 Labs: Laboratory Results - last 24 hr 05/28/25 05:30: WBC 11.5 H, RBC 2.70 L, Hgb 7.9 L, Hct 24.1 L, MCV 89.3, MCH 29.3, MCHC 32.8, RDW Std Deviation 45.9 H, RDW Coeff of Tanner 14.1, Plt Count 331,MPV 8.8, Immature Gran % (Auto) 1.100 H, Neut % (Auto) 77.6 H, Lymph % (Auto) 12.9 L, [place] % (Auto) 7.9, Eos % (Auto) 0.4, Baso % (Auto) 0.1, Absolute Neuts (auto) 9.0 H, Absolute Lymphs (auto) 1.49, Nucleated RBC % 0, Sodium 141, Potassium 3.3, Chloride 109 H, Carbon Dioxide 17.8 L, Anion Gap 14, BUN 10, Creatinine 1.02, Estim Creat Clear Calc 93.45, Est GFR (MDRD) Non-Af 74, BUN/Creatinine Ratio 10.0, Glucose 89, Calcium 8.4 Micro: Microbiology 05/27/25 08:41 Incision/Surgical Site Gram Stain - Final 05/27/25 08:41 Incision/Surgical Site Wound Culture - Preliminary Gram negative ryann 05/26/25 16:20 Blood Culture (Wb) - Left Wrist Bacteria Detection (PCR) - Final Coag Negative Staph 05/26/25 16:20 Blood Culture (Wb) - Left Wrist Blood Culture - Preliminary Coag Negative Staph 05/25/25 10:25 Interface Orders Gram Stain - Final 05/25/25 10:25 Interface Orders Body Fluid Culture - Final Morganella morganii sp morgani 05/25/25 10:25 Interface Orders Anaerobic Culture - Preliminary Checking for anaerobes, further studies to follow. 05/24/25 19:45 Blood Culture (Wb) - Anticubital Right Blood Culture - Preliminary No growth in 48 hours. 05/24/25 19:30 Blood Culture (Wb) - Left Hand Blood Culture - Preliminary No growth in 48 hours. Physical Exam Narrative She is alert and oriented x 3. She is in no acute distress. Dressing is clean dry and intact. Wound appears to be stable Assessment & Plan Assessment/Plan (1) Subcutaneous abscess: PLAN: Plan Patient is a 34-year-old female who is postoperative day #1 from an incision anddrainage of a abscess just deep to her recent incision. Her wound wasleft open and packed with Kerlix. Plan is for her to have wound VAC placed later today. She has been given the okay for discharge home on oral antibioticsby infectious disease. I am also okay with discharge later today as long as thewound VAC is placed and dressing changes can be arranged over the long holiday weekend. She can follow-up with me in 1 to 2 weeks 05/28/25 1148 <Electronically signed by Garrett Hernandez MD> Cosigner Signature (if applicable): CC: ~ Signed [facility] Work Phone: [phone]) 329-702208-29-2025 Progress note Author Levon Schmid [facility] Note Date/Time May 28, 2025 10 :12am [facility] Medical Records Department [address] [place] [address] Progress Note - Infect Disease 05/28/25 1010 MR#: [id number] Acct: [id number] Name: BARBY CABALLERO Rep #:[id number] : 1990 34 From: Levon beck MD PCP: Dr. Steffen Eisenberg MD Status:ADM IN Location: SC3 IL730-0 Physical Exam Narrative Feeling better, no fever, no n/v/d. Const alert and no apparent distress General Appearance: cooperative Resp normal air movement and clear to auscultation bilaterally Cardio regular rate and regular rhythm GI soft to palpation, non-tender and non-distended Skin Skin Narrative: no new rash ID ID: Route of nutrition/ use of supplements: [] Nutritional Intake: [] IV Site: [] Disla Catheter: [] Assessment & Plan Assessment/Plan (1) Subcutaneous abscess: PLAN: S/p 05/12/25. Presented with SIRS. Now on zosyn. Aspiration cx now with morganella. Now s/p OR 05/27/[address] Hernandez for I&D of abscess. Overall much improved. Surg cx with GNR. Single bcx with MS-CoNS per pcr, so far consistent with contaminated sample. Ok for home with 8 days po bactrim DS, wrote rx, discussed potential side effects. Cr slightly up this AM, will need bmp and cbc on 06/01/25. Will follow as needed, I gave her my card, d/w nursing and keycase assembler 05/28/25 1012 <Electronically signed by Levon Schmid MD> Cosigner Signature (if applicable): CC: ~ Signed [facility] Work Phone: 1(266) 817-937708-29-2025 Progress note [facility] Medical Records Department [address] [place] [address] Progress Note - Surgery 05/28/25 1144 MR#: [id number] Acct: [id number] Name: BARBY CABALLERO Rep #:[id number] : 1990 34 From: Garrett Hernandez MD PCP: Dr. Steffen Eisenberg MD Status:ADM IN Location: SC3 [id number] Subjective Subjective Patient doing well today. Abdomen is feeling much better since drainage of abscess. Dressing was changed overnight due to Betadine bleeding through the dressing. White blood cell count greatly decreased. Patient was seen by wound care nurse and we are anticipating wound VAC placement today and possibly discharge home later today. Objective Data Objective Data Vital Signs: Vital Signs Temp Pulse Resp BP Pulse Ox O2 Del Method O2 Flow Rate 98.1 F 84 14 136/84 H 97 Room Air 2 05/28/25 08:35 05/28/25 08:35 05/28/25 08:35 05/28/25 08:35 05/28/25 08:35 05/28/25 08:35 05/27/25 11:07 Oxygen Flow Rate (L/min) 2 Oxygen Delivery Method Room Air Weight: 258 lb 2.581 oz Body Mass Index (BMI) 47.2 Intake & Output: Intake and Output for Last 24 Hours 05/26/25 05/27/25 05/28/25 23:59 23:59 23:59 Intake Total 2793.25 / 2793.25 762.00 / 1062.00 819 / 819 Output Total Balance 2793.25 / 2793.25 752.00 / 1052.00 819 / 819 Lab / Micro Data 05/28/25 05:30 05/28/25 05:30 Labs: Laboratory Results - last 24 hr 05/28/25 05:30: WBC 11.5 H, RBC 2.70 L, Hgb 7.9 L, Hct 24.1 L, MCV 89.3, MCH 29.3, MCHC 32.8, RDW Std Deviation 45.9 H, RDW Coeff of Tanner 14.1, Plt Count 331,MPV 8.8, Immature Gran % (Auto) 1.100 H, Neut % (Auto) 77.6 H, Lymph % (Auto) 12.9 L, [place] % (Auto) 7.9, Eos % (Auto) 0.4, Baso % (Auto) 0.1, Absolute Neuts (auto) 9.0 H, Absolute Lymphs (auto) 1.49, Nucleated RBC % 0, Sodium 141, Potassium 3.3, Chloride 109 H, Carbon Dioxide 17.8 L, Anion Gap 14, BUN 10, Creatinine 1.02, Estim Creat Clear Calc 93.45, Est GFR (MDRD) Non-Af 74, BUN/Creatinine Ratio 10.0, Glucose 89, Calcium 8.4 Micro: Microbiology 05/27/25 08:41 Incision/Surgical Site Gram Stain - Final 05/27/25 08:41 Incision/Surgical Site Wound Culture - Preliminary Gram negative ryann 05/26/25 16:20 Blood Culture (Wb) - Left Wrist Bacteria Detection (PCR) - Final Coag Negative Staph 05/26/25 16:20 Blood Culture (Wb) - Left Wrist Blood Culture - Preliminary Coag Negative Staph 05/25/25 10:25 Interface Orders Gram Stain - Final 05/25/25 10:25 Interface Orders Body Fluid Culture - Final Morganella morganii sp morgani 05/25/25 10:25 Interface Orders Anaerobic Culture - Preliminary Checking for anaerobes, further studies to follow. 05/24/25 19:45 Blood Culture (Wb) - Anticubital Right Blood Culture - Preliminary No growth in 48 hours. 05/24/25 19:30 Blood Culture (Wb) - Left Hand Blood Culture - Preliminary No growth in 48 hours. Physical Exam Narrative She is alert and oriented x 3. She is in no acute distress. Dressing is clean dry and intact. Wound appears to be stable Assessment & Plan Assessment/Plan (1) Subcutaneous abscess: PLAN: Plan Patient is a 34-year-old female who is postoperative day #1 from an incision anddrainage of a abscess just deep to her recent incision. Her wound wasleft open and packed with Kerlix. Plan is for her to have wound VAC placed later today. She has been given the okay for discharge home on oral antibioticsby infectious disease. I am also okay with discharge later today as long as thewound VAC is placed and dressing changes can be arranged over the long holiday weekend. She can follow-up with me in 1 to 2 weeks 05/28/25 1148 Cosigner Signature (if applicable): CC: ~ Signed [facility]08-29-2025 Progress note [facility] Medical Records Department [address] [place] [address] Progress Note - Infect Disease 05/28/25 1010 MR#: [id number] Acct: [id number] Name: BARBY CABALLERO Rep #:[id number] : 1990 34 From: Levon beck MD PCP: Dr. Steffen Eisenberg MD Status:ADM IN Location: SC3 BB258-8 Physical Exam Narrative Feeling better, no fever, no n/v/d. Const alert and no apparent distress General Appearance: cooperative Resp normal air movement and clear to auscultation bilaterally Cardio regular rate and regular rhythm GI soft to palpation, non-tender and non-distended Skin Skin Narrative: no new rash ID ID: Route of nutrition/ use of supplements: [] Nutritional Intake: [] IV Site: [] Disla Catheter: [] Assessment & Plan Assessment/Plan (1) Subcutaneous abscess: PLAN: S/p 05/12/25. Presented with SIRS. Now on zosyn. Aspiration cx now with morganella. Now s/p OR 05/27/[address] Hernandez for I&D of abscess. Overall much improved. Surg cx with GNR. Single bcx with MS-CoNS per pcr, so far consistent with contaminated sample. Ok for home with 8 days po bactrim DS, wrote rx, discussed potential side effects. Cr slightly up this AM, will need bmp andcbc on 06/01/25. Will follow as needed, I gave her my card, d/w nursing and keycase assembler 05/28/25 1012 Cosigner Signature (if applicable): CC: ~ Signed [facility]08-29-2025 Progress note Author Edel Diehl [facility] Note Date/Time May 28, 2025 7: 59am [facility] Medical Records Department [address] [facility] [place] [address] Progress Note - OBGYN 05/28/25 0751 MR#: [id number] Acct: [id number] Name: MERCEDESKiranBARBYVICKI BLAND Rep #:[id number] : 1990 34 From: Edel Bullock DO PCP: Dr. Steffen Eisenberg MD Status:ADM IN Location: [place] [address] Subjective Subjective patient is sitting up in bed and states that she feels much better. The wound team has not been by yet. we discussed that her wound culture grew out Morganella morganii and her blood culture is growing coag neg staph. Objective Data Objective Data Vital Signs: Vital Signs Temp Pulse Resp BP Pulse Ox O2 Del Method O2 Flow Rate 97.6 F L 66 18 125/75 H 99 Room Air 2 05/28/25 05:05/28/25 05:25 05/28/25 05:05/28/25 05:05/28/25 05:25 05/28/25 05:05/27/25 11:07 Oxygen Flow Rate (L/min) 2 Oxygen Delivery Method Room Air Weight: 258 lb 2.581 oz Body Mass Index (BMI) 47.2 Intake & Output: Intake and Output for Last 24 Hours 05/26/25 05/27/25 05/28/25 23:59 23:59 23:59 Intake Total 2793.25 / 2793.25 762.00 / 1062.00 769 / 769 Output Total Balance 2793.25 / 2793.25 752.00 / 1052.00 769 / 769 Lab / Micro Data 05/28/25 05:30 05/28/25 05:30 Labs: Laboratory Results - last 24 hr 05/27/25 05:55: PT 14.3, INR 1.1, APTT 35.9, Sodium 144, Potassium 3.3, [id number] H, Carbon Dioxide 18.5 L, Anion Gap 12, BUN 7, Creatinine 0.78, Estim Creat Clear Calc 122.21, Est GFR (MDRD) Non-Af 101, BUN/Creatinine Ratio 9.3 L, Glucose 70, Calcium 8.2 05/28/25 05:30: WBC 11.5 H, RBC 2.70 L, Hgb 7.9 L, Hct 24.1 L, MCV 89.3, MCH 29.3, MCHC 32.8, RDW Std Deviation 45.9 H, RDW Coeff of Tanner 14.1, Plt Count 331,MPV 8.8, Immature Gran % (Auto) 1.100 H, Neut % (Auto) 77.6 H, Lymph % (Auto) 12.9 L, [place] % (Auto) 7.9, Eos % (Auto) 0.4, Baso % (Auto) 0.1, Absolute Neuts (auto) 9.0 H, Absolute Lymphs (auto) 1.49, Nucleated RBC % 0, Sodium 141, Potassium 3.3, Chloride 109 H, Carbon Dioxide 17.8 L, Anion Gap 14, BUN 10, Creatinine 1.02, Estim Creat Clear Calc 93.45, Est GFR (MDRD) Non-Af 74, BUN/Creatinine Ratio 10.0, Glucose 89, Calcium 8.4 Micro: Microbiology 05/26/25 16:20 Blood Culture (Wb) - Left Wrist Bacteria Detection (PCR) - Final Coag Negative Staph 05/26/25 16:20 Blood Culture (Wb) - Left Wrist Blood Culture - Preliminary 05/25/25 10:25 Interface Orders Gram Stain - Final 05/25/25 10:25 Interface Orders Body Fluid Culture - Final Morganella morganii sp morgani 05/25/25 10:25 Interface Orders Anaerobic Culture - Preliminary Checking for anaerobes, further studies to follow. 05/24/25 19:45 Blood Culture (Wb) - Anticubital Right Blood Culture - Preliminary No growth in 48 hours. 05/24/25 19:30 Blood Culture (Wb) - Left Hand Blood Culture - Preliminary No growth in 48 hours. ROS Constitutional Constitutional: Reports fatigue; Denies body ache(s), chills, difficulty sleeping, excessive sweating, fever(s), headache(s) or poor appetite Cardiovascular Cardiovascular: Denies diaphoresis, dizziness or leg edema Respiratory/Chest Respiratory/Chest: Denies change in mental status or cough Gastrointestinal Gastrointestinal: Denies anorexia, constipation, cramping or diarrhea Musculoskeletal Musculoskeletal: Denies difficulty walking or extremity pain Neurologic Neurologic: Denies dizziness Psychiatric Psychiatric: Reports anxiety Physical Exam Const alert, oriented x3 and no apparent distress Eyes EOMs intact bilaterally Neck full ROM Chest Chest: symmetrical chest wall rise Resp normal respiratory effort Cardio regular rate and regular rhythm GI soft to palpation, non-tender and non-distended GI Narrative: wound dressing is on. There is an area that is saturated however on the right lower aspect. Extremity normal to inspection Assessment & Plan (1) Subcutaneous abscess: (2) Postoperative fever: (3) Tachycardia: (4) Soft tissue abscess: (5) S/P : PLAN: Plan plan today is to see wound nurse and plan for discharge looking forward to more recommendations from ID about antibiotic selection of coag neg staph and morganii sp morgani in wound. She would like to be discharged tonight if at all possible. Anemia- status post iron infusion. She is asymptomatic at this time. No need forblood transfusion. Hypokalemia- resolved. Charges/Coding Visit Charges Inpatient E&M: 56099 Subs Hosp L2 05/28/25 2394 <Electronically signed by Edel Bullock DO> Cosigner Signature (if applicable): CC: ~ Signed [facility] Work Phone: 1(812) 750-862308-29-2025 Progress note [facility] Medical Records Department [address] [place] [address] Progress Note - OBGYN 05/28/25 0751 MR#: [id number] Acct: [id number] Name: BARBY CABALLERO Rep #:[id number] : 1990 34 From: Edel Bullock DO PCP: Dr. Steffen Eisenberg MD Status:ADM IN Location: MS3 [id number] Subjective Subjective patient is sitting up in bed and states that she feels much better. The wound team has not been by yet. we discussed that her wound culture grew out Morganella morganii and her blood culture is growing coag neg staph. Objective Data Objective Data Vital Signs: Vital Signs Temp Pulse Resp BP Pulse Ox O2 Del Method O2 Flow Rate 97.6 F L 66 18 125/75 H 99 Room Air 2 05/28/25 05:25 05/28/25 05:25 05/28/25 05:25 05/28/25 05:25 05/28/25 05:25 05/28/25 05:25 05/27/25 11:07 Oxygen Flow Rate (L/min) 2 Oxygen Delivery Method Room Air Weight: 258 lb 2.581 oz Body Mass Index (BMI) 47.2 Intake & Output: Intake and Output for Last 24 Hours 05/26/25 05/27/25 05/28/25 23:59 23:59 23:59 Intake Total 2793.25 / 2793.25 762.00 / 1062.00 769 / 769 Output Total 10 / Balance 2793.25 / 2793.25 752.00 / 1052.00 769 / 769 Lab / Micro Data 05/28/25 05:30 05/28/25 05:30 Labs: Laboratory Results - last 24 hr 05/27/25 05:55: PT 14.3, INR 1.1, APTT 35.9, Sodium 144, Potassium 3.3, [id number] H, Carbon Dioxide 18.5 L, Anion Gap 12, BUN 7, Creatinine 0.78, Estim Creat Clear Calc 122.21, Est GFR (MDRD) Non-Af 101, BUN/Creatinine Ratio 9.3 L, Glucose 70, Calcium 8.2 05/28/25 05:30: WBC 11.5 H, RBC 2.70 L, Hgb 7.9 L, Hct 24.1 L, MCV 89.3, MCH 29.3, MCHC 32.8, RDW Std Deviation 45.9 H, RDW Coeff of Tanner 14.1, Plt Count 331,MPV 8.8, Immature Gran % (Auto) 1.100 H, Neut % (Auto) 77.6 H, Lymph % (Auto) 12.9 L, [place] % (Auto) 7.9, Eos % (Auto) 0.4, Baso % (Auto) 0.1, Absolute Neuts (auto) 9.0 H, Absolute Lymphs (auto) 1.49, Nucleated RBC % 0, Sodium 141, Potassium 3.3, Chloride 109 H, Carbon Dioxide 17.8 L, Anion Gap 14, BUN 10, Creatinine 1.02, Estim Creat Clear Calc 93.45, Est GFR (MDRD) Non-Af 74, BUN/Creatinine Ratio 10.0, Glucose 89, Calcium 8.4 Micro: Microbiology 05/26/25 16:20 Blood Culture (Wb) - Left Wrist Bacteria Detection (PCR) - Final Coag Negative Staph 05/26/25 16:20 Blood Culture (Wb) - Left Wrist Blood Culture - Preliminary 05/25/25 10:25 Interface Orders Gram Stain - Final 05/25/25 10:25 Interface Orders Body Fluid Culture - Final Morganella morganii sp morgani 05/25/25 10:25 Interface Orders Anaerobic Culture - Preliminary Checking for anaerobes, further studies to follow. 05/24/25 19:45 Blood Culture (Wb) - Anticubital Right Blood Culture - Preliminary No growth in 48 hours. 05/24/25 19:30 Blood Culture (Wb) - Left Hand Blood Culture - Preliminary No growth in 48 hours. ROS Constitutional Constitutional: Reports fatigue; Denies body ache(s), chills, difficulty sleeping, excessive sweating, fever(s), headache(s) or poor appetite Cardiovascular Cardiovascular: Denies diaphoresis, dizziness or leg edema Respiratory/Chest Respiratory/Chest: Denies change in mental status or cough Gastrointestinal Gastrointestinal: Denies anorexia, constipation, cramping or diarrhea Musculoskeletal Musculoskeletal: Denies difficulty walking or extremity pain Neurologic Neurologic: Denies dizziness Psychiatric Psychiatric: Reports anxiety Physical Exam Const alert, oriented x3 and no apparent distress Eyes EOMs intact bilaterally Neck full ROM Chest Chest: symmetrical chest wall rise Resp normal respiratory effort Cardio regular rate and regular rhythm GI soft to palpation, non-tender and non-distended GI Narrative: wound dressing is on. There is an area that is saturated however on the right lower aspect. Extremity normal to inspection Assessment & Plan (1) Subcutaneous abscess: (2) Postoperative fever: (3) Tachycardia: (4) Soft tissue abscess: (5) S/P : PLAN: Plan plan today is to see wound nurse and plan for discharge looking forward to more recommendations from ID about antibiotic selection of coag neg staph and morganii sp morgani in wound. She would like to be discharged tonight if at all possible. Anemia- status post iron infusion. She is asymptomatic at this time. No need forblood transfusion. Hypokalemia- resolved. Charges/Coding Visit Charges Inpatient E&M: 98633 Subs Hosp L2 05/28/25 0759 Cosigner Signature (if applicable): CC: ~ Signed [facility]08-29-2025 Progress note Author Apple Lao [facility] Note Date/Time May 28, 2025 12 :36am [facility] Medical Records Department [address] [place] [address] Progress Note - OBGYN 05/27/25 1518 MR#: [id number] Acct: [id number] Name: BARBY CABALLERO Rep #:[id number] : 1990 34 From: Apple fuentes MD PCP: Dr. Steffen Eisenberg MD Status:ADM IN Location: [place] [address] Subjective Subjective Patient feeling tired but comfortable overall, minimal vaginal bleeding status post wound debridement by general surgery. Planning on wound VAC tomorrow. Able to ambulate with assistance to bathroom. Tolerating p.o. No chest pain orshortness of breath. Objective Data Objective Data Vital Signs: Vital Signs Temp Pulse Resp BP Pulse Ox O2 Del Method O2 Flow Rate 97.6 F L 95 18 127/77 H 96 Room Air 2 05/27/25 13:07 05/27/25 13:07 05/27/25 13:07 05/27/25 13:07 05/27/25 13:07 05/27/25 13:07 05/27/25 11:07 Oxygen Flow Rate (L/min) 2 Oxygen Delivery Method Room Air Weight: 258 lb 2.581 oz Body Mass Index (BMI) 47.2 Intake & Output: Intake and Output for Last 24 Hours 05/25/25 05/26/25 05/27/25 23:59 23:59 23:59 Intake Total 3838.33 / 4138.33 2793.25 / 2793.25 712.00 / 712.00 Output Total Balance 3838.33 / 4138.33 2793.25 / 2793.25 702.00 / 702.00 Lab / Micro Data 05/27/25 05:55 05/27/25 05:55 Labs: Laboratory Results - last 24 hr 05/26/25 16:06: Lactic Acid 1.3 05/26/25 16:20: WBC 14.7 H, RBC 3.32 L, Hgb 9.5 L, Hct 29.4 L, MCV 88.6, MCH 28.6, MCHC 32.3, RDW Std Deviation 44.6 H, RDW Coeff of Tanner 13.7, Plt Count 397,MPV 8.5, Immature Gran % (Auto) 0.400, Neut % (Auto) 84.6 H, Lymph % (Auto) 7.9 L, [place] % (Auto) 6.1, Eos % (Auto) 0.8, Baso % (Auto) 0.2, Absolute Neuts (auto)12.4 H, Absolute Lymphs (auto) 1.16, Nucleated RBC % 0 05/27/25 05:55: WBC 12.1 H, RBC 2.79 L, Hgb 7.9 L, Hct 24.8 L, MCV 88.9, MCH 28.3, MCHC 31.9 L, RDW Std Deviation 45.1 H, RDW Coeff of Tanner 13.8, Plt Count 363, MPV 8.7, Immature Gran % (Auto) 0.700, Neut % (Auto) 80.3 H, Lymph % (Auto)10.3 L, [place] % (Auto) 6.9, Eos % (Auto) 1.6, Baso % (Auto) 0.2, Absolute Neuts (auto) 9.7 H, Absolute Lymphs (auto) 1.25, Nucleated RBC % 0, PT 14.3, INR 1.1, APTT 35.9, Sodium 144, Potassium 3.3, Chloride 113 H, Carbon Dioxide 18.5 L, Anion Gap 12, BUN 7, Creatinine 0.78, Estim Creat Clear Calc 122.21, Est GFR (MDRD) Non-Af 101, BUN/Creatinine Ratio 9.3 L, Glucose 70, Calcium 8.2 Micro: Microbiology 05/25/25 10:25 Interface Orders Gram Stain - Final 05/25/25 10:25 Interface Orders Body Fluid Culture - Final Morganella morganii sp morgani 05/25/25 10:25 Interface Orders Anaerobic Culture - Preliminary Checking for anaerobes, further studies to follow. 05/24/25 19:45 Blood Culture (Wb) - Anticubital Right Blood Culture - Preliminary No growth in 48 hours. 05/24/25 19:30 Blood Culture (Wb) - Left Hand Blood Culture - Preliminary No growth in 48 hours. Radiography Diagnostic Testing: Radiology Impression Abdomen/Pelvis CT 05/26/25 14:38 IMPRESSION: Essentially stable examination with decreased size of the previously seen fluid collection in the anterior right lower quadrant/pelvic wall. It presently measures 12.4 cm 3.4 cm. Reading Location: [facility] Physical Exam Const alert, oriented x3 and no apparent distress GI GI Narrative: Bandage intact no saturation Assessment & Plan (1) Subcutaneous abscess: (2) Postoperative fever: (3) Tachycardia: (4) S/P : (5) Soft tissue abscess: PLAN: Plan Appreciate wound evacuation by general surgery, consult for wound VAC tomorrow. Appreciate ID consult. Continue SCDs. 05/28/25 0036 <Electronically signed by Apple Lao MD> Cosigner Signature (if applicable): CC: ~ Signed [facility] Work Phone: 1(405) 509-168008-29-2025 Progress note [facility] Medical Records Department [address] [place] [address] Progress Note - OBGYN 05/27/25 1518 MR#: [id number] Acct: [id number] Name: BARBY CABALLERO Rep #:[id number] : 1990 34 From: Apple fuentes MD PCP: Dr. Steffen Eisenberg MD Status:ADM IN Location: MS3 OA038-8 Subjective Subjective Patient feeling tired but comfortable overall, minimal vaginal bleeding status post wound debridement by general surgery. Planning on wound VAC tomorrow. Able to ambulate with assistance to bathroom.Tolerating p.o. No chest pain orshortness of breath. Objective Data Objective Data Vital Signs: Vital Signs Temp Pulse Resp BP Pulse Ox O2 Del Method O2 Flow Rate 97.6 F L 95 18 127/77 H 96 Room Air 2 05/27/25 13:07 05/27/25 13:07 05/27/25 13:07 05/27/25 13:07 05/27/25 13:07 05/27/25 13:07 05/27/25 11:07 Oxygen Flow Rate (L/min) 2 Oxygen Delivery Method Room Air Weight: 258 lb 2.581 oz Body Mass Index (BMI) 47.2 Intake & Output: Intake and Output for Last 24 Hours 05/25/25 05/26/25 05/27/25 23:59 23:59 23:59 Intake Total 3838.33 / 4138.33 2793.25 / 2793.25 712.00 / 712.00 Output Total Balance 3838.33 / 4138.33 2793.25 / 2793.25 702.00 / 702.00 Lab / Micro Data 05/27/25 05:55 05/27/25 05:55 Labs: Laboratory Results - last 24 hr 05/26/25 16:06: Lactic Acid 1.3 05/26/25 16:20: WBC 14.7 H, RBC 3.32 L, Hgb 9.5 L, Hct 29.4 L, MCV 88.6, MCH 28.6, MCHC 32.3, RDW Std Deviation 44.6 H, RDW Coeff of Tanner 13.7, Plt Count 397,MPV 8.5, Immature Gran % (Auto) 0.400, Neut % (Auto) 84.6 H, Lymph % (Auto) 7.9 L, [place] % (Auto) 6.1, Eos % (Auto) 0.8, Baso % (Auto) 0.2, Absolute Neuts (auto)12.4 H, Absolute Lymphs (auto) 1.16, Nucleated RBC % 0 05/27/25 05:55: WBC 12.1 H, RBC 2.79 L, Hgb 7.9 L, Hct 24.8 L, MCV 88.9, MCH 28.3, MCHC 31.9 L, RDWStd Deviation 45.1 H, RDW Coeff of Tanner 13.8, Plt Count 363, MPV 8.7, Immature Gran % (Auto) 0.700, Neut % (Auto) 80.3 H, Lymph % (Auto)10.3 L, [place] % (Auto) 6.9, Eos % (Auto) 1.6, Baso % (Auto) 0.2, Absolute Neuts (auto) 9.7 H, Absolute Lymphs (auto) 1.25, Nucleated RBC % 0, PT 14.3, INR 1.1, APTT 35.9, Sodium 144, Potassium 3.3, Chloride 113 H, Carbon Dioxide 18.5 L, Anion Gap 12, BUN 7, Creatinine 0.78, Estim Creat Clear Calc 122.21, Est GFR (MDRD) Non-Af 101, BUN/Creatinine Ratio 9.3 L, Glucose 70, Calcium 8.2 Micro: Microbiology 05/25/25 10:25 Interface Orders Gram Stain - Final 05/25/25 10:25 Interface Orders Body Fluid Culture - Final Morganella morganii sp morgani 05/25/25 10:25 Interface Orders Anaerobic Culture - Preliminary Checking for anaerobes, further studies to follow. 05/24/25 19:45 Blood Culture (Wb) - Anticubital Right Blood Culture - Preliminary No growth in 48 hours. 05/24/25 19:30 Blood Culture (Wb) - Left Hand Blood Culture - Preliminary No growth in 48 hours. Radiography Diagnostic Testing: Radiology Impression Abdomen/Pelvis CT 05/26/25 14:38 IMPRESSION: Essentially stable examination with decreased size of the previously seen fluid collection in the anterior right lower quadrant/pelvic wall. It presently measures 12.4 cm 3.4 cm. Reading Location: [facility] Physical Exam Const alert, oriented x3 and no apparent distress GI GI Narrative: Bandage intact no saturation Assessment & Plan (1) Subcutaneous abscess: (2) Postoperative fever: (3) Tachycardia: (4) S/P : (5) Soft tissue abscess: PLAN: Plan Appreciate wound evacuation by general surgery, consult for wound VAC tomorrow. Appreciate ID consult. Continue SCDs. 05/28/25 0036 Cosigner Signature (if applicable): CC: ~ Signed [place] [facility] Consult note Author Patricia Gusman [facility] Note Date/Time May 27, 2025 1: 49pm [facility] Medical Records Department [address] [place] [address] Anesthesia Postop Eval II 05/27/25 1349 MR#: [id number] Acct: [id number] Name: BARBY CABALLERO Rep #:[id number] : 1990 34 From: Patricia raymond CRNA PCP: Dr. Steffen Eisenberg MD Status:ADM IN Y Race: C Location: [place] [address] Anesthesia Postop Eval I Sum Postop Eval Completion status Anesthesia document: Postop Eval 1 completed: Yes Anesthesia Postop Eval I Summary Anesthesia Postop Eval I Summary: Anesthesia Postop Eval I: Assessment Summary Airway patent Yes 05/27/25 08:37 IT APPLICATION [email or web address] Spontaneous unlabored Yes 05/27/25 08:37 IT APPLICATION [email or web address] respirations Mental status Awake,Calm 05/27/25 08:37 IT APPLICATION [email or web address] nausea No 05/27/25 08:37 IT APPLICATION [email or web address].[email or web address] Vomiting No 05/27/25 08:37 IT APPLICATION [email or web address].[email or web address] Anesthesia Postop Eval I: Fluid Summary Crystalloid volume administer 700 05/27/25 08:37 IT APPLICATION [email or web address].PKEL (ml) Colloids volume administered ( ml) Blood Product volume administered (ml) Total IV fluid infused 700 05/27/25 08:37 IT APPLICATION [email or web address].[email or web address] Anesthesia Postop Eval I: Summary Notes Anesthesia Complication No 05/27/25 08:37 IT APPLICATION [email or web address].[email or web address] Anesthesia Complication Comment: Post-operative progress note Anesthesia: Postop Eval II Evaluation Mental status: Awake and Calm Pain Level: 0 nausea: No Vomiting: No Complications Anesthesia Complication: No 05/27/25 1349 <Electronically signed by Patricia salas IT APPLICATION ARCHITECT> Date _ Patrciia Gusman IT APPLICATION ARCHITECT Cosigner Signature: Date CC: ~ Signed [facility] Work Phone: 1(376) 927-895508-28-2025 Consult note [facility] Medical Records Department [address] [place] [address] Anesthesia Postop Eval II 05/27/25 1349 MR#: [id number] Acct: [id number] Name: BARYB CABALLERO Rep #:[id number] : 1990 34 From: Patricia raymond IT APPLICATION ARCHITECT PCP: Dr. Steffen Eisenberg MD Status:ADM IN Y Race: C Location: [facility] MS304 -1 Anesthesia Postop Eval I Sum Postop Eval Completion status Anesthesia document: Postop Eval 1 completed: Yes Anesthesia Postop Eval I Summary Anesthesia Postop Eval I Summary: Anesthesia Postop Eval I: Assessment Summary Airway patent Yes 05/27/25 08:37 IT APPLICATION [email or web address] Spontaneous unlabored Yes 05/27/25 08:37 IT APPLICATION [email or web address].[email or web address] respirations Mental status Awake,Calm 05/27/25 08:37 IT APPLICATION ARCHITECT.PKEL nausea No 05/27/25 08:37 IT APPLICATION ARCHITECT.PKEL Vomiting No 05/27/25 08:37 IT APPLICATION ARCHITECT.PKEL Anesthesia Postop Eval I: Fluid Summary Crystalloid volume administer 700 05/27/25 08:37 IT APPLICATION ARCHITECT.PKEL (ml) Colloids volume administered ( ml) Blood Product volume administered (ml) Total IV fluid infused 700 05/27/25 08:37 IT APPLICATION ARCHITECT.PKEL Anesthesia Postop Eval I: Summary Notes Anesthesia Complication No 05/27/25 08:37 IT APPLICATION [email or web address].[email or web address] Anesthesia Complication Comment: Post-operative progress note Anesthesia: Postop Eval II Evaluation Mental status: Awake and Calm Pain Level: 0 nausea: No Vomiting: No Complications Anesthesia Complication: No 05/27/25 1349 nski IT APPLICATION ARCHITECT> Date _ Patricia Naseem IT APPLICATION ARCHITECT Cosigner Signature: Date CC: ~ Signed [facility]08-28-2025 Consult note Author Levon Schmid [facility] Note Date/Time May 27, 2025 10 :10am [facility] Medical Records Department [address] [place] [address] Consultation - Infectious Dx 05/27/25 1002 MR#: [id number] Acct: [id number] Name: BARBY CABALLERO Rep #:[id number] : 1990 34 From: Levon beck MD PCP: Dr. Steffen Eisenberg MD Status:ADM IN Location: [facility] IL857-9 Assessment & Plan Assessment/Plan (1) Subcutaneous abscess: PLAN: S/p 05/12/25. Presented with SIRS. Now on vanc/zosyn. Aspiration cx now with morganella. Now s/p OR this AM 05/27/[address] Hernandez for I&D of abscess. Will cont zosyn for now, will stop vanc now that aspirationculture is finalized. Temps improved, wbc better. Should continue to improve now that we have good source control. Will follow, thank you, d/w Dr. Bullock last evening. HPI Consult Data Date of Consult: 05/27/25 HPI Narrative Reason for Consultation: fever HPI Narrative: BARBY CABALLERO, is a 34 F who had 05/12/25. Baby is doing well. On 05/24, started to have fever at home. Has been pumping. No cough or SOB, no dysuria. Mild abd soreness. Came to ED, admitted on zosyn. CT showed fluid collection. Aspiration done. Still with fever and tachycardia, so added vanc last night. This AM, taken to OR for I&D of abscess in lower abd wall. Feelingok this AM, pain controlled. Full ROS performed and neg except as noted above. [facility] Medical History PCOS (polycystic ovarian syndrome) Infertility Depression with anxiety GERD (gastroesophageal reflux disease) Home Medications ?Medication ?Instructions ?Recorded ?Last Taken ?Type escitalopram oxalate 10 mg tablet 10 mg PO DAILY anxie ty/depression 07/20/24 05/23/25 Rx (Lexapro) #30 tabs docosahexaenoic acid 200 mg 200 mg PO DAILY #90 caps 07/28/24 05/23/25 Rx capsule ( DHA) famotidine 40 mg tablet (Pepcid) 40 mg PO DAILY indige stion #30 tabs 01/11/25 05/23/25 Rx breast pump #1 ea 01/29/25 Unknown Rx ibuprofen 800 mg tablet 800 mg PO Q8H PRN pain #30 t abs 05/12/25 05/24/25 Rx acetaminophen 500 mg capsule 1,000 mg PO Q6H PRN fever or pain 05/24/25 05/24/25 History Allergy/AdvReac Type Severity Reaction Status Date / Time No Known Allergies Allergy Verified 05/27/25 07:01 Family History Mother Hypertension Grandfather Heart disease Hypertension Diabetes Cancer Macular degeneration Grandmother Macular degeneration Surgical History (Updated 05/24/25 @ 18:[address] 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) pets and animals: cat(s) history of recent travel: Yes ([place] for IVF) out of state: Yes sexually [...] physical activity do you participate in: none landon/moravian: None seatbelt use: always do you feel safe at home: Yes additional social history: : 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) Physical Exam Const alert, oriented x3 and no apparent distress General Appearance: cooperative HEENT normocephalic and head/scalp atraumatic Eyes PERRL and EOMs intact bilaterally Neck supple and No nodes Resp normal air movement and clear to auscultation bilaterally Cardio regular rate and regular rhythm GI soft to palpation, non-tender and non-distended Extremity General Extremity: Negative for edema Skin Skin Narrative: abd wrapped s/p OR Neuro CN's II-XII intact bilaterally Lab / Micro Data Attestation: I reviewed the patient's lab results. 05/27/25 05:55 05/27/25 05:55 Labs: Laboratory Results - last 24 hr 05/26/25 16:06: Lactic Acid 1.3 05/26/25 16:20: WBC 14.7 H, RBC 3.32 L, Hgb 9.5 L, Hct 29.4 L, MCV 88.6, MCH 28.6, MCHC 32.3, RDW Std Deviation 44.6 H, RDW Coeff of Tanner 13.7, Plt Count 397,MPV 8.5, Immature Gran % (Auto) 0.400, Neut % (Auto) 84.6 H, Lymph % (Auto) 7.9 L, [place] % (Auto) 6.1, Eos % (Auto) 0.8, Baso % (Auto) 0.2, Absolute Neuts (auto)12.4 H, Absolute Lymphs (auto) 1.16, Nucleated RBC % 0 05/27/25 05:55: WBC 12.1 H, RBC 2.79 L, Hgb 7.9 L, Hct 24.8 L, MCV 88.9, MCH 28.3, MCHC 31.9 L, RDW Std Deviation 45.1 H, RDW Coeff of Tanner 13.8, Plt Count 363, MPV 8.7, Immature Gran % (Auto) 0.700, Neut % (Auto) 80.3 H, Lymph % (Auto)10.3 L, [place] % (Auto) 6.9, Eos % (Auto) 1.6, Baso % (Auto) 0.2, Absolute Neuts (auto) 9.7 H, Absolute Lymphs (auto) 1.25, Nucleated RBC % 0, PT 14.3, INR 1.1, APTT 35.9, Sodium 144, Potassium 3.3, Chloride 113 H, Carbon Dioxide 18.5 L, Anion Gap 12, BUN 7, Creatinine 0.78, Estim Creat Clear Calc 122.21, Est GFR (MDRD) Non-Af 101, BUN/Creatinine Ratio 9.3 L, Glucose 70, Calcium 8.2 Micro: Microbiology 05/25/25 10:25 Interface Orders Gram Stain - Final 05/25/25 10:25 Interface Orders Body Fluid Culture - Final Morganella morganii sp morgani 05/24/25 19:45 Blood Culture (Wb) - Anticubital Right Blood Culture - Preliminary No growth in 48 hours. 05/24/25 19:30 Blood Culture (Wb) - Left Hand Blood Culture - Preliminary No growth in 48 hours. Imaging Radiology Impression Abdomen/Pelvis CT 05/26/25 14:38 IMPRESSION: Essentially stable examination with decreased size of the previously seen fluid collection in the anterior right lower quadrant/pelvic wall. It presently measures 12.4 cm 3.4 cm. Reading Location: [id number] 05/27/25 1010 <Electronically signed by Levon Schmid MD> Cosigner Signature (if applicable): CC: Dr. Steffen Eisenberg MD~ Signed [facility] Work Phone: [phone]) 445-939508-28-2025 Consult note Author Jeremy Clement [facility] Note Date/Time May 27, 2025 8: 37am [facility] Medical Records Department [address] [place] [address] Anesthesia Postop Eval I 05/27/25 0836 MR#: [id number] Acct: [id number] Name: BARBY CABALLERO Rep #:[id number] : 1990 34 From: Jeremy Clement CRNA PCP: Dr. Steffen Eisenberg MD Status:ADM IN Y Race: C Location: [place] [address] -1 Anesthesia: Postop Eval I Current Vital Signs Temperature: 98.8 F Pulse Rate: 121 Blood Pressure: 116/78 Respiratory Rate: 20 Pulse Ox: 96 Oxygen Delivery Method: Nasal Cannula Oxygen Flow Rate (L/min): 4 Assessment Airway patent: Yes Spontaneous unlabored respirations: Yes Mental status: Awake and Calm nausea: No Vomiting: No Anesthesia Complication: No Fluid Hydration Crystalloid volume administer (ml): 700 Total IV fluid infused: 700 Progress Note Anesthesia document: Postop Eval 1 completed: Yes 05/27/25 0837 <Electronically signed by Jeremy rocha CRNA> Date _ Jeremy Clement CRNA Cosigner Signature: Date CC: ~ Signed [facility] Work Phone: 1(862) 228-914808-28-2025 Consult note [facility] Medical Records Department [address] [place] [address] Consultation - Infectious Dx 05/27/25 1002 MR#: [id number] Acct: [id number] Name: BARBY CABALLERO Rep #:[id number] : 1990 34 From: Levon beck MD PCP: Dr. Steffen Eisenberg MD Status:ADM IN Location: [facility] MD886-4 Assessment & Plan Assessment/Plan (1) Subcutaneous abscess: PLAN: S/p 05/12/25. Presented with SIRS. Now on vanc/zosyn. Aspiration cx now with morganella. Now s/p OR this AM 05/27/[address] Hernandez for I&D of abscess. Will cont zosyn for now, willstop vanc now that aspirationculture is finalized. Temps improved, wbc better. Should continue to improve now that we have good source control. Will follow, thank you, d/w Dr. Bullock last evening. HPI Consult Data Date of Consult: 05/27/25 HPI Narrative Reason for Consultation: fever HPI Narrative: BARBY CABALLERO, is a 34 F who had 05/12/25. Baby is doing well. On 05/24, started to have fever at home. Has been pumping. No cough or SOB, no dysuria. Mild abd soreness. Came to ED, admitted on zosyn. CT showed fluid collection. Aspiration done. Still with fever and tachycardia, so added vanc last night. This AM, taken to OR for I&D of abscess in lower abd wall. Feelingok this AM, pain controlled. Full ROS performed and neg except as noted above. [facility] Medical History PCOS (polycystic ovarian syndrome) Infertility Depression with anxiety GERD (gastroesophageal reflux disease) Home Medications ?Medication ?Instructions ?Recorded ?Last Taken ?Type escitalopram oxalate 10 mg tablet 10 mg PO DAILY anxie ty/depression 07/20/24 05/23/25 Rx (Lexapro) #30 tabs docosahexaenoic acid 200 mg 200 mg PO DAILY #90 caps 07/28/24 05/23/25 Rx capsule ( DHA) famotidine 40 mg tablet (Pepcid) 40 mg PO DAILY indige stion #30 tabs 01/11/25 05/23/25 Rx breast pump #1 ea 01/29/25 Unknown Rx ibuprofen 800 mg tablet 800 mg PO Q8H PRN pain #30 t abs 05/12/25 05/24/25 Rx acetaminophen 500 mg capsule 1,000 mg PO Q6H PRN fever or pain 05/24/25 05/24/25 History Allergy/AdvReac Type Severity Reaction Status Date / Time No Known Allergies Allergy Verified 05/27/25 07:01 Family History Mother Hypertension Grandfather Heart disease Hypertension Diabetes Cancer Macular degeneration Grandmother Macular degeneration Surgical History (Updated 05/24/25 @ 18:[address] 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) pets and animals: cat(s) history of recent travel: Yes ([place] for IVF) out of state: Yes sexually [...] physical activity do you participate in: none landon/moravian: None seatbelt use: always do you feel safe at home: Yes additional social history: : Ravi Kwon [employer] (works from home) Physical Exam Const alert, oriented x3 and no apparent distress General Appearance: cooperative HEENT normocephalic and head/scalp atraumatic Eyes PERRL and EOMs intact bilaterally Neck supple and No nodes Resp normal air movement and clear to auscultation bilaterally Cardio regular rate and regular rhythm GI soft to palpation, non-tender and non-distended Extremity General Extremity: Negative for edema Skin Skin Narrative: abd wrapped s/p OR Neuro CN's II-XII intact bilaterally Lab / Micro Data Attestation: I reviewed the patient's lab results. 05/27/25 05:55 05/27/25 05:55 Labs: Laboratory Results - last 24 hr 05/26/25 16:06: Lactic Acid 1.3 05/26/25 16:20: WBC 14.7 H, RBC 3.32 L, Hgb 9.5 L, Hct 29.4 L, MCV 88.6, MCH 28.6, MCHC 32.3, RDW Std Deviation 44.6 H, RDW Coeff of Tanner 13.7, Plt Count 397,MPV 8.5, Immature Gran % (Auto) 0.400, Neut % (Auto) 84.6 H, Lymph % (Auto) 7.9 L, [place] % (Auto) 6.1, Eos % (Auto) 0.8, Baso % (Auto) 0.2, Absolute Neuts (auto)12.4 H, Absolute Lymphs (auto) 1.16, Nucleated RBC % 0 05/27/25 05:55: WBC 12.1 H, RBC 2.79 L, Hgb 7.9 L, Hct 24.8 L, MCV 88.9, MCH 28.3, MCHC 31.9 L, RDWStd Deviation 45.1 H, RDW Coeff of Tanner 13.8, Plt Count 363, MPV 8.7, Immature Gran % (Auto) 0.700, Neut % (Auto) 80.3 H, Lymph % (Auto)10.3 L, [place] % (Auto) 6.9, Eos % (Auto) 1.6, Baso % (Auto) 0.2, Absolute Neuts (auto) 9.7 H, Absolute Lymphs (auto) 1.25, Nucleated RBC % 0, PT 14.3, INR 1.1, APTT 35.9, Sodium 144, Potassium 3.3, Chloride 113 H, Carbon Dioxide 18.5 L, Anion Gap 12, BUN 7, Creatinine 0.78, Estim Creat Clear Calc 122.21, Est GFR (MDRD) Non-Af 101, BUN/Creatinine Ratio 9.3 L, Glucose 70, Calcium 8.2 Micro: Microbiology 05/25/25 10:25 Interface Orders Gram Stain - Final 05/25/25 10:25 Interface Orders Body Fluid Culture - Final Morganella morganii sp morgani 05/24/25 19:45 Blood Culture (Wb) - Anticubital Right Blood Culture - Preliminary No growth in 48 hours. 05/24/25 19:30 Blood Culture (Wb) - Left Hand Blood Culture - Preliminary No growth in 48 hours. Imaging Radiology Impression Abdomen/Pelvis CT 05/26/25 14:38 IMPRESSION: Essentially stable examination with decreased size of the previously seen fluid collection in the anterior right lower quadrant/pelvic wall. It presently measures 12.4 cm 3.4 cm. Reading Location: [facility] 05/27/25 1010 Cosigner Signature (if applicable): CC: Dr. Steffen Eisenberg MD~ Signed [facility]08-28-2025 Consult note Author Garrett Hernandez [facility] Note Date/Time May 27, 2025 7: 36am [facility] Medical Records Department [address] [place] [address] Consultation - Surgical 05/27/25 0730 MR#: [id number] Acct: [id number] Name: BARBY CABALLERO Rep #:[id number] : 1990 34 From: Garrett Hernandez MD PCP: Dr. Steffen Eisenberg MD Status:ADM IN Location: [facility] AR777-2 Assessment & Plan Assessment/Plan (1) Subcutaneous abscess: PLAN: Plan The patient is a 34-year-old female who is 2 weeks status post a . Shehas developed a 15 cm fluid collection/abscess along with fevers and leukocytosis. They are recommending operative drainage of this abscess. We discussed the details of the planned procedure including risks benefits and alternatives. She wishes to proceed. We also discussed the need to keep the wound open and packed at least initially to facilitate wound healing and cleaning of the wound. I suspect eventually she will benefit from a wound VAC and this can be applied in the next few days as the wound becomes exhibit cleaner. Surgery will begin momentarily HPI Consult Data Date of Consult: 05/27/25 HPI Narrative Reason for Consultation: Abdominal wall abscess HPI Narrative: BARYB CABALLERO, is a 34 F who is status post a about 2 weeks ago. She presented to the emergency department with fevers. She underwent CT scan of theabdomen pelvis which revealed about a 15 cm fluid collection/abscess involving the subcutaneous tissues of the lower right abdomen near the site of the recent C- section incision. She was subsidy admitted and placed on antibiotics. Radiology attempted CT-guided aspiration however only about 100 cc of fluid was able to be removed. CT scan was repeated during this hospitalization and showedthat the fluid collection was smaller although still quite large. Infectious disease was also consulted and recommended drainage. I was contacted by the patient's [employer] physician in order to set up a surgery to drain this fluid collection. We discussed the details of the planned procedure with the patient and she wishes to proceed. [facility] Medical History (Updated 05/24/25 @ 19:[address] Edel Bullock, DO) PCOS (polycystic ovarian syndrome) Infertility Depression with anxiety GERD (gastroesophageal reflux disease) Home Medications ?Medication ?Instructions ?Recorded ?Last Taken ?Type escitalopram oxalate 10 mg tablet 10 mg PO DAILY anxie ty/depression 07/20/24 05/23/25 Rx (Lexapro) #30 tabs docosahexaenoic acid 200 mg 200 mg PO DAILY #90 caps 07/28/24 05/23/25 Rx capsule ( DHA) famotidine 40 mg tablet (Pepcid) 40 mg PO DAILY indige stion #30 tabs 01/11/25 05/23/25 Rx breast pump #1 ea 01/29/25 Unknown Rx ibuprofen 800 mg tablet 800 mg PO Q8H PRN pain #30 t abs 05/12/25 05/24/25 Rx acetaminophen 500 mg capsule 1,000 mg PO Q6H PRN fever or pain 05/24/25 05/24/25 History Allergy/AdvReac Type Severity Reaction Status Date / Time No Known Allergies Allergy Verified 05/27/25 07:01 Family History Mother Hypertension Grandfather Heart disease Hypertension Diabetes Cancer Macular degeneration Grandmother Macular degeneration Surgical History (Updated 05/24/25 @ 18:[address] 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) pets and animals: cat(s) history of recent travel: Yes ([place] for IVF) out of state: Yes sexually [...] physical activity do you participate in: none landon/moravian: None seatbelt use: always do you feel safe at home: Yes additional social history: : Ravi Kwon [employer] (works from home) Physical Exam Narrative She is alert and oriented x 3. She is in no acute distress. Abdomen is soft obese and nondistended. She does have ecchymosis involving the lower abdomen. Medical Records Data Attestation: I reviewed the patient's medical records Lab / Micro Data Attestation: I reviewed the patient's lab results. 05/27/25 05:55 05/26/25 04:09 Labs: Laboratory Results - last 24 hr 05/26/25 16:06: Lactic Acid 1.3 05/26/25 16:20: WBC 14.7 H, RBC 3.32 L, Hgb 9.5 L, Hct 29.4 L, MCV 88.6, MCH 28.6, MCHC 32.3, RDW Std Deviation 44.6 H, RDW Coeff of Tanner 13.7, Plt Count 397,MPV 8.5, Immature Gran % (Auto) 0.400, Neut % (Auto) 84.6 H, Lymph % (Auto) 7.9 L, [place] % (Auto) 6.1, Eos % (Auto) 0.8, Baso % (Auto) 0.2, Absolute Neuts (auto)12.4 H, Absolute Lymphs (auto) 1.16, Nucleated RBC % 0 05/27/25 05:55: WBC 12.1 H, RBC 2.79 L, Hgb 7.9 L, Hct 24.8 L, MCV 88.9, MCH 28.3, MCHC 31.9 L, RDW Std Deviation 45.1 H, RDW Coeff of Tanner 13.8, Plt Count 363, MPV 8.7, Immature Gran % (Auto) 0.700, Neut % (Auto) 80.3 H, Lymph % (Auto)10.3 L, [place] % (Auto) 6.9, Eos % (Auto) 1.6, Baso % (Auto) 0.2, Absolute Neuts (auto) 9.7 H, Absolute Lymphs (auto) 1.25, Nucleated RBC % 0 Micro: Microbiology 05/24/25 19:45 Blood Culture (Wb) - Anticubital Right Blood Culture - Preliminary No growth in 48 hours. 05/24/25 19:30 Blood Culture (Wb) - Left Hand Blood Culture - Preliminary No growth in 48 hours. 05/25/25 10:25 Interface Orders Gram Stain - Final 05/25/25 10:25 Interface Orders Body Fluid Culture - Preliminary Gram negative ryann Imaging Radiology Impression Abdomen/Pelvis CT 05/26/25 14:38 IMPRESSION: Essentially stable examination with decreased size of the previously seen fluid collection in the anterior right lower quadrant/pelvic wall. It presently measures 12.4 cm 3.4 cm. Reading Location: [id number] Charges/Coding Visit Charges Inpatient E&M: 60342 Init Hosp L3 05/27/25 0736 <Electronically signed by Garrett Hernandez MD> Cosigner Signature (if applicable): CC: Dr. Steffen Eisenberg MD~ Signed [facility] Work Phone: 1(668) 243-272008-28-2025 Consult note Author Patricia Gusman [facility] Note Date/Time May 27, 2025 7: 31am [facility] Medical Records Department [address] [place] [address] Pre-Anesthesia Evaluation 05/27/25 0724 MR#: [id number] Acct: [id number] Name: BARBY CABALLERO Rep #:[id number] : 1990 34 From: Patricia raymond CRNA PCP: Dr. Steffen Eisenberg MD Status:ADM IN Y Race: C Location: [facility] -1 ASA Classification* ASA Classification ASA Classification: 3 and E Assessment & Plan Anesthesia* Anesthesia Assessment Anesthesia Assessment: Discussed sedation and/or anesthesia options, risks, benefits, and alternatives with patient/parents/legal guardian/POA. Questions invited. The patient/parents/legal guardian/POA seems to understand and agrees to proceedwith anesthesia plan. Reviewed the physical assessment, medical history, allergy history and patient home medications list prior to surgery/procedure/anesthetic and documented any changes. Performed airway and anesthesia risk assessments. Anesthesia Type Anesthesia Type: General (ETT) History Source History Obtained from:: Patient and Chart Anesthesia Focused Assessment* Temperature: 98.5 F Pulse Rate: 115 Blood Pressure: 124/85 Respiratory Rate: 16 Pulse Ox: 100 Oxygen Delivery Method: Room Air Airway Assessment Mouth opens: >3 cm Mallampati Score: III Teeth Condition: Intact Neck Range of motion (ROM): Full ROM Labs Anesthesia Preop lab: CBC WBC 14.7 K/mm3 (4.4-11.0) H 05/26/25 16:20 5 RBC 3.32 M/mm3 (4.2-5.4) L 05/26/25 16:20 05/26/25 Hgb 9.5 g/dL (12.0-15.0) L 05/26/25 16:20 05/26/25 Hct 29.4 % (37-47) L 05/26/25 16:20 05/26/25 Plt Count 397 K/mm3 (150-450) 05/26/25 16:20 05/26/25 CHEMISTRY Potassium 3.2 mmol/L (3.3-5.1) L 05/26/25 04:09 05/26/25 Sodium 139 mmol/L (133-145) 05/26/25 04:09 05/26/25 BUN 8 mg/dL (4-19) 05/26/25 04:09 05/26/25 Creatinine 0.49 mg/dL (0.70-1.20) L 05/26/25 04:09 Glucose 67 mg/dL (70-99) L 05/26/25 04:09 05/26/25 TSH 1.180 uIU/mL (0.358-3.740) 10/09/24 15:34 09/30 COAG PT 15.5 SECONDS (11.7-14.9) H 05/25/25 06:15 05/01 03/24 Pre-Assessment Diagnosis/Proposed Procedure Planned Operative Procedure(s): I&D abdominal wall abscess Anesthesia History Anesthesia History - arabic linguist: Anesthesia History - arabic linguist Hx Hospitalization Any Problems With Anesthesia No 05/26/25 20:15 Cholinesterase deficiency No 05/26/25 20:15 You/Your Family Experience No 05/26/25 20:15 fever (hyperthermia) with Relationship Recent Exposure to Contagious No 05/26/25 20:15 Disease Does patient have nerve No 05/26/25 20:15 stimulator Patient instructed to have No 05/26/25 20:15 device shut off --Does patient have Pacemaker No 05/27/25 06:07 or ICD? When Was Last Pacemaker Check QUESTION #4 FULL TEXT: You/Your Family Experience fever (hyperthermia) with Anesthesia Last Oral Intake Last Oral intake: Last Oral Intake NPO since 23:00 05/27/25 06:07 Meds taken in AM with sips of No 05/27/25 06:07 water? Meds patient instructed to take am of surgery PONV PONV - arabic linguist: PONV - arabic linguist Female HX of Motion Sickness HX of N/V After Surgery Non-Smoker Duration of Surgery greater than 60 minutes Number of Risk Factors PONV Score Height & Weight Height & Weight: Anesthesia: Height & Weight Height 5 ft 2 in 05/27/25 06:07 Weight: 117.1 kg 05/27/25 06:07 Body Mass Index (BMI) 47.2 05/27/25 06:07 Respiratory Assessment Respiratory Assessment - arabic linguist: Respiratory Tract Infection Hx - arabic linguist Hx Respiratory Tract Infection No 05/26/25 20:15 STOP Sleep Apnea STOP Sleep Apnea - arabic linguist: STOP Sleep Apnea - arabic linguist Hx Hypertension No 05/24/25 20:14 Hx Sleep Apnea Yes 05/24/25 20:14 CPAP Yes 05/24/25 20:14 BIPAP No 05/24/25 20:14 Do you snore loudly (louder than talking or can be heard Do you often feel tired/ fatigued/ sleepy during daytime? Has anyone observed you stop breathing during sleep? STOP Results Positive 05/24/25 20:14 QUESTION #5 FULL TEXT : Do you snore loudly (louder than talking or can be heard through closed doors)? Tobacco Use History Tobacco Use History - arabic linguist: Tobacco Use History - arabic linguist Tobacco Use Smoking Status Former smoker 05/24/25 20:14 Hx Tobacco Use No 05/24/25 20:14 Years Smoking Packs Smoked per Day Smoking Cessation Date was No - quit smoking greater 05/24/25 20:14 within the last 15 years than 15 years ago Hx Smoking Cessation Date Hx Smoking Cessation Counseling Hematologic Medial History Hematologic Hx - arabic linguist: Hematologic Medical Hx - stock turner Hx of Blood Transfusion No 05/24/25 20:14 Hx of Transfusion in last 3 No 05/24/25 20:14 Months Date of Last Transfusion (if within last 3 months) Ever experience any problems No 05/24/25 20:14 with transfusion(s)? Specify any problems Hx of Preganancy in last 3 No 05/24/25 20:14 Months Nurse Filling Out Transfusion TMELLOR 05/24/25 20:14 & Questions: Date: 05/24/25 05/24/25 20:14 Time: 20:14 05/24/25 20:14 Patient unable to answer at this time (ie. confused, unrespo /Reproduction History /Reproductive History - arabic linguist: /Reproductive Hx- arabic linguist Hx Now No 05/26/25 20:15 Gestational Age (in weeks): EDC: Hx Hx Para Hx Section SAB Yes 05/26/25 20:15 Active Medications Active Medications: Current Medications Generic Name Dose Route Start Last Admin Trade Name Freq PRN Reason Stop Dose Admin Acetaminophen 1,000 mg 05/26/25 23:06 Acetaminophen 500 Mg Tablet PO Q8H PRN PRN Pain 1-10 or Fever Enoxaparin Sodium 40 mg 05/26/25 22:00 Enoxaparin 40 Mg/0.4 Ml Syringe SC BID MOOK Piperacillin Sod/Tazobactam 50 mls @ 12.5 mls/hr 05/25/25 06:00 05/27/25 07:04 Sod 3.375 gm/ Sodium Chloride IV 12.5 mls/hr Q8 MOOK Administration Sodium Chloride 250 mls @ 15 mls/hr 05/24/25 20:23 05/26/25 22:52 IV 0 mls/hr .[id number] PRN Infusion Saline Flush Vancomycin IV-PHARMACY TO DOSE 500 mls @ 250 mls/hr 05/26/25 18:12 1 each/ Sodium Chloride IV PRN PRN Rx to Dose Protocol Vancomycin HCl 1,500 mg/ 530 mls @ 250 mls/hr 05/27/25 04:00 05/27/25 06:10 Sodium Chloride IV Infused Q8H MOOK Infusion Sodium Chloride 1,000 mls @ 15 mls/hr 05/27/25 06:45 05/27/25 07:04 IV 15 mls/hr .Q48H MOOK Administration Ibuprofen 800 mg 05/24/25 18:46 05/26/25 18:43 Ibuprofen 400 Mg Tablet PO 800 mg Q8H PRN PRN Administration Pain Score 4-10 Oxycodone HCl 5 mg 05/24/25 18:46 Oxycodone 5 Mg Tablet PO Q4H PRN PRN Pain Score 4-10 Sodium Chloride 10 - 40 ml 05/24/25 20:23 0.9% Saline Lock 10 Ml Syringe IV UD PRN SALINE FLUSH Vancomycin Protocol 1 lab 05/27/25 18:30 Vancomycin Trough/Random Due 05/27/25 20:30 DAILY MOOK Zolpidem Tartrate 5 mg 05/24/25 18:46 Zolpidem Tartrate 5 Mg Tablet PO QHS PRN PRN SLEEP PFSH Medical History (Updated 05/24/25 @ 19:[address] Edel Bullock, DO) PCOS (polycystic ovarian syndrome) Infertility Depression with anxiety GERD (gastroesophageal reflux disease) Home Medications ?Medication ?Instructions ?Recorded ?Last Taken ?Type escitalopram oxalate 10 mg tablet 10 mg PO DAILY anxie ty/depression 07/20/24 05/23/25 Rx (Lexapro) #30 tabs docosahexaenoic acid 200 mg 200 mg PO DAILY #90 caps 07/28/24 05/23/25 Rx capsule ( DHA) famotidine 40 mg tablet (Pepcid) 40 mg PO DAILY indige stion #30 tabs 01/11/25 05/23/25 Rx breast pump #1 ea 01/29/25 Unknown Rx ibuprofen 800 mg tablet 800 mg PO Q8H PRN pain #30 t abs 05/12/25 05/24/25 Rx acetaminophen 500 mg capsule 1,000 mg PO Q6H PRN fever or pain 05/24/25 05/24/25 History Allergy/AdvReac Type Severity Reaction Status Date / Time No Known Allergies Allergy Verified 05/27/25 07:01 Family History Mother Hypertension Grandfather Heart disease Hypertension Diabetes Cancer Macular degeneration Grandmother Macular degeneration Surgical History (Updated 05/24/25 @ 18:[address] 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) pets and animals: cat(s) history of recent travel: Yes ([place] for IVF) out of state: Yes sexually [...] physical activity do you participate in: none landon/moravian: None seatbelt use: always do you feel safe at home: Yes additional social history: : [employer] (works from home) Review of Systems (Anesthesia) ROS Narrative System reviewed and no additional complaints, except as documented. 05/27/25730 <Electronically signed by Patricia salas CRNA> Date _ Patricia Gusman CRNA Cosigner Signature: Date CC: ~ Signed [facility] Work Phone: [phone]) 906-736108-28-2025 Procedure note [facility] Medical Records Department [address] [place] [address] Operative Report 05/27/25 0837 MR#: [id number] Acct: [id number] Name: BARBY CABALLERO Rep #:[id number] : 1990 34 From: Garrett Hernandez MD PCP: Dr. Steffen Eisenberg MD Status:ADM IN Location: [facility] WR044-5 Procedures Integumentary 10xxx: [id number] Complex drainage wound Operative Report (Standard) Operative Information Date of Procedure: 05/27/25 Pre-Operative Diagnosis: Abdominal wall abscess Post-Operative Diagnosis: Same Surgery/Procedure Performed: Incision and drainage of abdominal wall abscess energy projects lead: Yes Tube Station Attendant: Alexandra Huston Tasks completed by ambulance assistant: Retracting Additional merchandising assistant?: No Type of Anesthesia: General and Local RN Documented Start/Stop Times: Operation Date: 05/27/25 08:00 Case Time Into Pre-Op 05/27/25 06:45 Out of Pre-Op 05/27/25 07:33 Anesthesia Start 05/27/25 07:39 Into Room 05/27/25 07:39 Procedure Start 05/27/25 08:03 Procedure End 05/27/25 08:20 Anesthesia End 05/27/25 08:30 Out of Room 05/27/25 08:30 Into Recovery 05/27/25 08:31 Procedure Start Time: 08:03 Procedure Stop Time: 08:20 Select all DRAINS/GRAFTS/IMPLANTS that apply: None Estimated Blood Loss: 10 ml Specimen collected: Yes Description of specimen(s) removed: Wound cultures performed Description of surgery: The patient is a 34-year-old female who underwent a about 2 weeks ago. When she returned home over the past week or so she developed abdominal pain and fever. She was seen and evaluated by the emergency department staff and a CT scan showed a large 15 cm abscess involving the right lower quadrant subcutaneous tissues just deep to the incision from the . General surgery consult was obtained to drain the abscess. We discussed the details of the planned procedure including the risks benefits and alternatives. She wishedto proceed Patient was brought to the operative room today following informed consent. Antibiotics were already being given and a timeout was performed. She was placed supine on the operative table with arms outstretched and arm boards. General endotracheal anesthesia was induced. The abdomen was then preppedand draped in the usual sterile manner. Soft tissue retraction straps were utilizedto retract the pannus to improve exposure to the surgical site. The right two thirds of the incision site was injected with local anesthetic. Once adequatelyanesthetized, a #10 blade was then used to make the skin incision through the previous C- section incision. Bovie electrocautery was then used to dissect downthrough the subcutaneous tissues. A large pocket of purulent material was quickly encountered. Wound cultures were promptly obtained. The entire length of the abscess was opened with the aid of the Bovie electrocautery. I did need to extend the incision more to the left to make sure that the full extent of theabscess cavity was unroofed. The level of dissection involved skin and subcutaneous tissues. Old hematoma and purulent drainage was suctioned out. The abdominal wall fascia was intact. There is no evidence to suggest necrotizing fasciitis. Next, using a pulse lavage device, a total of 4 L of saline was used to lavage the wound. The wound actually cleaned up quite nicely. Next Bovie electrocautery was then used to ensure hemostasis especiallyalong the skin edges and the deep recesses of the wound. Hemostasis was excellent. The wound was then irrigated several times with Irrisept. Lastly, the wound was packed with Betadine moistened Kerlix. ABD dressing was then applied along with tape. An abdominal binder was also placed. The patient was then awakened from anesthesia and taken to recovery in good condition Surgical Findings: Large abdominal wall abscess/infected hematoma Complications Complications: No Admit VTE Documentation VTE Present on Admission: No VTE Mechan Device Prophylaxis: SCD's VTE Pharm Prophylaxis ordered?: Yes 05/27/25 0836 Cosigner Signature (if applicable): CC: Dr. Steffen Eisenberg MD; Dr. Edel Bullock DO; Dr. Levon Schmid MD; Dr. Garrett Hernandez MD~ Signed [facility]08-28-2025 Consult note [facility] Medical Records Department [address] [place] [address] Anesthesia Postop Eval I 05/27/25 0836 MR#: [id number] Acct: [id number] Name: BARBY CABALLERO Rep #:[id number] : 1990 34 From: Jeremy Clement CRNA PCP: Dr. Steffen Eisenberg MD Status:ADM IN Y Race: C Location: [place] [address] Anesthesia: Postop Eval I Current Vital Signs Temperature: 98.8 F Pulse Rate: 121 Blood Pressure: 116/78 Respiratory Rate: 20 Pulse Ox: 96 Oxygen Delivery Method: Nasal Cannula Oxygen Flow Rate (L/min): 4 Assessment Airway patent: Yes Spontaneous unlabored respirations: Yes Mental status: Awake and Calm nausea: No Vomiting: No Anesthesia Complication: No Fluid Hydration Crystalloid volume administer (ml): 700 Total IV fluid infused: 700 Progress Note Anesthesia document: Postop Eval 1 completed: Yes 05/27/2537 y IT APPLICATION ARCHITECT> Date _ Jeremy Clement CRNA Cosigner Signature: Date CC: ~ Signed [facility]08-28-2025 Consult note [facility] Medical Records Department [address] [place] [address] Consultation - Surgical 05/27/25729 MR#: [id number] Acct: [id number] Name: BARBY CABALLERO Rep #:[id number] : 1990 34 From: Garrett Hernandez MD PCP: Dr. Steffen Eisenberg MD Status:ADM IN Location: [place] [address] Assessment & Plan Assessment/Plan (1) Subcutaneous abscess: PLAN: Plan The patient is a 34-year-old female who is 2 weeks status post a . Shehas developed a 15 cm fluid collection/abscess along with fevers and leukocytosis. They are recommending operative drainage of this abscess. We discussed the details of the planned procedure including risks benefits and a lternatives. She wishes to proceed. We also discussed the need to keep the wound open and packed atleast initially to facilitate wound healing and cleaning of the wound. I suspect eventually she will benefit from a wound VAC and this can be applied in the next few days as the wound becomes exhibit cleaner. Surgery will begin momentarily HPI Consult Data Date of Consult: 05/27/25 HPI Narrative Reason for Consultation: Abdominal wall abscess HPI Narrative: BARBY CABALLERO, is a 34 F who is status post a about 2 weeks ago. She presented to the emergency department with fevers. She underwent CT scan of theabdomen pelvis which revealed about a 15 cm fluid collection/abscess involving the subcutaneous tissues of the lower right abdomen near the site of the recent incision. She was subsidy admitted and placed on antibiotics. Radiology attempted CT-guided aspiration however only about 100 cc of fluid was able to be removed. CT scan was repeated during this hospitalization and showedthat the fluid collection was smaller although still quite large. Infectious disease was also consulted and recommended drainage. I was contacted by the patient's CLOTH FINISH[employer] physician in order to set up a surgery to drain this fluid collection. We discussed the details of the planned procedure with the patient and she wishes to proceed. [facility] Medical History (Updated 05/24/25 @ 19:[address] Edel Bullock, ) PCOS (polycystic ovarian syndrome) Infertility Depression with anxiety GERD (gastroesophageal reflux disease) Home Medications ?Medication ?Instructions ?Recorded ?Last Taken ?Type escitalopram oxalate 10 mg tablet 10 mg PO DAILY anxie ty/depression 07/20/24 05/23/25 Rx (Lexapro) #30 tabs docosahexaenoic acid 200 mg 200 mg PO DAILY #90 caps 07/28/24 05/23/25 Rx capsule ( DHA) famotidine 40 mg tablet (Pepcid) 40 mg PO DAILY indige stion #30 tabs 01/11/25 05/23/25 Rx breast pump #1 ea 01/29/25 Unknown Rx ibuprofen 800 mg tablet 800 mg PO Q8H PRN pain #30 t abs 05/12/25 05/24/25 Rx acetaminophen 500 mg capsule 1,000 mg PO Q6H PRN fever or pain 05/24/25 05/24/25 History Allergy/AdvReac Type Severity Reaction Status Date / Time No Known Allergies Allergy Verified 05/27/25 07:01 Family History Mother Hypertension Grandfather Heart disease Hypertension Diabetes Cancer Macular degeneration Grandmother Macular degeneration Surgical History (Updated 05/24/25 @ 18:[address] 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) pets and animals: cat(s) history of recent travel: Yes ([place] for IVF) out of state: Yes sexually [...] physical activity do you participate in: none landon/moravian: None seatbelt use: always do you feel safe at home: Yes additional social history: : [employer] [address] [address] (works from home) Physical Exam Narrative She is alert and oriented x 3. She is in no acute distress. Abdomen is soft obese and nondistended. She does have ecchymosis involving the lower abdomen. Medical Records Data Attestation: I reviewed the patient's medical records Lab / Micro Data Attestation: I reviewed the patient's lab results. 05/27/25 05:55 05/26/25 04:09 Labs: Laboratory Results - last 24 hr 05/26/25 16:06: Lactic Acid 1.3 05/26/25 16:20: WBC 14.7 H, RBC 3.32 L, Hgb 9.5 L, Hct 29.4 L, MCV 88.6, MCH 28.6, MCHC 32.3, RDW Std Deviation 44.6 H, RDW Coeff of Tanner 13.7, Plt Count 397,MPV 8.5, Immature Gran % (Auto) 0.400, Neut % (Auto) 84.6 H, Lymph % (Auto) 7.9 L, [place] % (Auto) 6.1, Eos % (Auto) 0.8, Baso % (Auto) 0.2, Absolute Neuts (auto)12.4 H, Absolute Lymphs (auto) 1.16, Nucleated RBC % 0 05/27/25 05:55: WBC 12.1 H, RBC 2.79 L, Hgb 7.9 L, Hct 24.8 L, MCV 88.9, MCH 28.3, MCHC 31.9 L, RDWStd Deviation 45.1 H, RDW Coeff of Tanner 13.8, Plt Count 363, MPV 8.7, Immature Gran % (Auto) 0.700, Neut % (Auto) 80.3 H, Lymph % (Auto)10.3 L, [place] % (Auto) 6.9, Eos % (Auto) 1.6, Baso % (Auto) 0.2, Absolute Neuts (auto) 9.7 H, Absolute Lymphs (auto) 1.25, Nucleated RBC % 0 Micro: Microbiology 05/24/25 19:45 Blood Culture (Wb) - Anticubital Right Blood Culture - Preliminary No growth in 48 hours. 05/24/25 19:30 Blood Culture (Wb) - Left Hand Blood Culture - Preliminary No growth in 48 hours. 05/25/25 10:25 Interface Orders Gram Stain - Final 05/25/25 10:25 Interface Orders Body Fluid Culture - Preliminary Gram negative [facility] Radiology Impression Abdomen/Pelvis CT 05/26/25 14:38 IMPRESSION: Essentially stable examination with decreased size of the previously seen fluid collection in the anterior right lower quadrant/pelvic wall. It presently measures 12.4 cm 3.4 cm. Reading Location: [id number] Charges/Coding Visit Charges Inpatient E&M: 04608 Init Hosp L3 05/27/25 3254 Cosigner Signature (if applicable): CC: Dr. Steffen Eisenberg MD~ Signed [facility]08-28-2025 Consult note [facility] Medical Records Department [address] [place] [address] Pre-Anesthesia Evaluation 05/27/25 0724 MR#: [id number] Acct: [id number] Name: BARBY CABALLERO Rep #:[id number] : 1990 34 From: Patricia raymond CRNA PCP: Dr. Steffen Eisenberg MD Status:ADM IN Y Race: C Location: SC3 MS304 -[id number] ASA Classification* ASA Classification ASA Classification: 3 and E Assessment & Plan Anesthesia* Anesthesia Assessment Anesthesia Assessment: Discussed sedation and/or anesthesia options, risks, benefits, and alternatives with patient/parents/legal guardian/POA. Questions invited. The patient/parents/legal guardian/POA seems to understand and agrees to proceedwith anesthesia plan. Reviewed the physical assessment, medical history, allergy history and patient home medications list prior to surgery/procedure/anesthetic and documented any changes. Performed airway and anesthesia risk assessments. Anesthesia Type Anesthesia Type: General (ETT) History Source History Obtained from:: Patient and Chart Anesthesia Focused Assessment* Temperature: 98.5 F Pulse Rate: 115 Blood Pressure: 124/85 Respiratory Rate: 16 Pulse Ox: 100 Oxygen Delivery Method: Room Air Airway Assessment Mouth opens: >3 cm Mallampati Score: III Teeth Condition: Intact Neck Range of motion (ROM): Full ROM Labs Anesthesia Preop lab: CBC WBC 14.7 K/mm3 (4.4-11.0) H 05/26/25 16:20 5 RBC 3.32 M/mm3 (4.2-5.4) L 05/26/25 16:20 05/26/25 Hgb 9.5 g/dL (12.0-15.0) L 05/26/25 16:20 05/26/25 Hct 29.4 % (37-47) L 05/26/25 16:20 05/26/25 Plt Count 397 K/mm3 (150-450) 05/26/25 16:20 05/26/25 CHEMISTRY Potassium 3.2 mmol/L (3.3-5.1) L 05/26/25 04:09 05/26/25 Sodium 139 mmol/L (133-145) 05/26/25 04:09 05/26/25 BUN 8 mg/dL (4-19) 05/26/25 04:09 05/26/25 Creatinine 0.49 mg/dL (0.70-1.20) L 05/26/25 04:09 Glucose 67 mg/dL (70-99) L 05/26/25 04:09 05/26/25 TSH 1.180 uIU/mL (0.358-3.740) 10/09/24 15:34 09/30 COAG PT 15.5 SECONDS (11.7-14.9) H 05/25/25 06:15 05/01 03/24 Pre-Assessment Diagnosis/Proposed Procedure Planned Operative Procedure(s): I&D abdominal wall abscess Anesthesia History Anesthesia History - arabic linguist: Anesthesia History - arabic linguist Hx Hospitalization Any Problems With Anesthesia No 05/26/25 20:15 Cholinesterase deficiency No 05/26/25 20:15 You/Your Family Experience No 05/26/25 20:15 fever (hyperthermia) with Relationship Recent Exposure to Contagious No 05/26/25 20:15 Disease Does patient have nerve No 05/26/25 20:15 stimulator Patient instructed to have No 05/26/25 20:15 device shut off --Does patient have Pacemaker No 05/27/25 06:07 or ICD? When Was Last Pacemaker Check QUESTION #4 FULL TEXT: You/Your Family Experience fever (hyperthermia) with Anesthesia Last Oral Intake Last Oral intake: Last Oral Intake NPO since 23:00 05/27/25 06:07 Meds taken in AM with sips of No 05/27/25 06:07 water? Meds patient instructed to take am of surgery PONV PONV - arabic linguist: PONV - arabic linguist Female HX of Motion Sickness HX of N/V After Surgery Non-Smoker Duration of Surgery greater than 60 minutes Number of Risk Factors PONV Score Height & Weight Height & Weight: Anesthesia: Height & Weight Height 5 ft 2 in 05/27/25 06:07 Weight: 117.1 kg 05/27/25 06:07 Body Mass Index (BMI) 47.2 05/27/25 06:07 Respiratory Assessment Respiratory Assessment - arabic linguist: Respiratory Tract Infection Hx - arabic linguist Hx Respiratory Tract Infection No 05/26/25 20:15 STOP Sleep Apnea STOP Sleep Apnea - arabic linguist: STOP Sleep Apnea - arabic linguist Hx Hypertension No 05/24/25 20:14 Hx Sleep Apnea Yes 05/24/25 20:14 CPAP Yes 05/24/25 20:14 BIPAP No 05/24/25 20:14 Do you snore loudly (louder than talking or can be heard Do you often feel tired/ fatigued/ sleepy during daytime? Has anyone observed you stop breathing during sleep? STOP Results Positive 05/24/25 20:14 QUESTION #5 FULL TEXT : Do you snore loudly (louder than talking or can be heard through closeddoors)? Tobacco Use History Tobacco Use History - arabic linguist: Tobacco Use History - arabic linguist Tobacco Use Smoking Status Former smoker 05/24/25 20:14 Hx Tobacco Use No 05/24/25 20:14 Years Smoking Packs Smoked per Day Smoking Cessation Date was No - quit smoking greater 05/24/25 20:14 within the last 15 years than 15 years ago Hx Smoking Cessation Date Hx Smoking Cessation Counseling Hematologic Medial History Hematologic Hx - arabic linguist: Hematologic Medical Hx - stock turner Hx of Blood Transfusion No 05/24/25 20:14 Hx of Transfusion in last 3 No 05/24/25 20:14 Months Date of Last Transfusion (if within last 3 months) Ever experience any problems No 05/24/25 20:14 with transfusion(s)? Specify any problems Hx of Preganancy in last 3 No 05/24/25 20:14 Months Nurse Filling Out Transfusion TMELLOR 05/24/25 20:14 & Questions: Date: 05/24/25 05/24/25 20:14 Time: 20:14 05/24/25 20:14 Patient unable to answer at this time (ie. confused, unrespo /Reproduction History /Reproductive History - arabic linguist: /Reproductive Hx- arabic linguist Hx Now No 05/26/25 20:15 Gestational Age (in weeks): EDC: Hx Hx Para Hx Section SAB Yes 05/26/25 20:15 Active Medications Active Medications: Current Medications Generic Name Dose Route Start Last Admin Trade Name Freq PRN Reason Stop Dose Admin Acetaminophen 1,000 mg 05/26/25 23:06 Acetaminophen 500 Mg Tablet PO Q8H PRN PRN Pain 1-10 or Fever Enoxaparin Sodium 40 mg 05/26/25 22:00 Enoxaparin 40 Mg/0.4 Ml Syringe SC BID MOOK Piperacillin Sod/Tazobactam 50 mls @ 12.5 mls/hr 05/25/25 06:00 05/27/25 07:04 Sod 3.375 gm/ Sodium Chloride IV 12.5 mls/hr Q8 MOOK Administration Sodium Chloride 250 mls @ 15 mls/hr 05/24/25 20:23 05/26/25 22:52 IV 0 mls/hr .[id number] PRN Infusion Saline Flush Vancomycin IV-PHARMACY TO DOSE 500 mls @ 250 mls/hr 05/26/25 18:12 1 each/ Sodium Chloride IV PRN PRN Rx to Dose Protocol Vancomycin HCl 1,500 mg/ 530 mls @ 250 mls/hr 05/27/25 04:00 05/27/25 06:10 Sodium Chloride IV Infused Q8H MOOK Infusion Sodium Chloride 1,000 mls @ 15 mls/hr 05/27/25 06:45 05/27/25 07:04 IV 15 mls/hr .Q48H MOOK Administration Ibuprofen 800 mg 05/24/25 18:46 05/26/25 18:43 Ibuprofen 400 Mg Tablet PO 800 mg Q8H PRN PRN Administration Pain Score 4-10 Oxycodone HCl 5 mg 05/24/25 18:46 Oxycodone 5 Mg Tablet PO Q4H PRN PRN Pain Score 4-10 Sodium Chloride 10 - 40 ml 05/24/25 20:23 0.9% Saline Lock 10 Ml Syringe IV UD PRN SALINE FLUSH Vancomycin Protocol 1 lab 05/27/25 18:30 Vancomycin Trough/Random Due [facility] 05/27/25 20:30 DAILY MOOK Zolpidem Tartrate 5 mg 05/24/25 18:46 Zolpidem Tartrate 5 Mg Tablet PO QHS PRN PRN SLEEP PFSH Medical History (Updated 05/24/25 @ 19:[address] Edel Bullock, DO) PCOS (polycystic ovarian syndrome) Infertility Depression with anxiety GERD (gastroesophageal reflux disease) Home Medications ?Medication ?Instructions ?Recorded ?Last Taken ?Type escitalopram oxalate 10 mg tablet 10 mg PO DAILY anxie ty/depression 07/20/24 05/23/25 Rx (Lexapro) #30 tabs docosahexaenoic acid 200 mg 200 mg PO DAILY #90 caps 07/28/24 05/23/25 Rx capsule ( DHA) famotidine 40 mg tablet (Pepcid) 40 mg PO DAILY indige stion #30 tabs 01/11/25 05/23/25 Rx breast pump #1 ea 01/29/25 Unknown Rx ibuprofen 800 mg tablet 800 mg PO Q8H PRN pain #30 t abs 05/12/25 05/24/25 Rx acetaminophen 500 mg capsule 1,000 mg PO Q6H PRN fever or pain 05/24/25 05/24/25 History Allergy/AdvReac Type Severity Reaction Status Date / Time No Known Allergies Allergy Verified 05/27/25 07:01 Family History Mother Hypertension Grandfather Heart disease Hypertension Diabetes Cancer Macular degeneration Grandmother Macular degeneration Surgical History (Updated 05/24/25 @ 18:[address] 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) pets and animals: cat(s) history of recent travel: Yes ([place] for IVF) out of state: Yes sexually [...] physical activity do you participate in: none landon/moravian: None seatbelt use: always do you feel safe at home: Yes additional social history: : 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) Review of Systems (Anesthesia) ROS Narrative System reviewed and no additional complaints, except as documented. 05/27/25 0731 maritza IT APPLICATION ARCHITECT> Date _ Patricia Naseem IT APPLICATION ARCHITECT Cosigner Signature: Date CC: ~ Signed [facility]08-28-2025 Progress note Author Edel Diehl [facility] Note Date/Time May 27, 2025 12 :47am [facility] Medical Records Department [address] [place] [address] Progress Note 05/27/25 0038 MR#: [id number] Acct: [id number] Name: BARBY CABALLERO Rep #:[id number] : 1990 34 From: Edel Bullock DO PCP: Dr. Steffen Eisenberg MD Status:ADM IN Location: [place] [address] Progress Note late entry note: Nurse called at 1428 to report that the patient has spiked a fever of 101.4 and is tachycardic again. She also thinks her pannus erythema is getting worse possibly. Upon exam the erythema does appear to have spread. The patient is tearful and states that her abdominal skin feels more tight and more painful. A stat CT shows no worsening of the fluid collection in the subcutaneous space but remains to be 12 x 4 cm in size. Physical Exam Const alert, oriented x3 and no apparent distress HEENT normocephalic Eyes PERRL Neck full ROM Lymph Lymphatic: no lymphadenopathy noted Chest inspection of chest normal Breast/Axilla Palpation: other Other Details: bilateral breasts are engorged. noobvious abscesses or lesion. The left nipple is cracked and there is dried bloodpresent. Resp normal respiratory effort Effort and Inspection: able to speak in complete sentences and symmetric chest movement Cardio regular rhythm Cardio Narrative: tachycardic 110 Rate: tachycardic GI GI Narrative: morbidly obese abdomen with 2 areas of ecchymosis measuring approximately 10 cm each. On on right side of pannus and one midline. The incision is clean, dry, intact. There is some overlapping of the incision in the midline measuring 1 cm.There is no oozing or discharge of any kind. The blisters that were reported appear to be secondary to her dressing. Palpation: tender and other Other Details: a line was drawn around the erythematous area to olivia borders ; Negative for guarding or rigid Narrative: some ecchymosis of the mons pubis. normal appearing external genitalia. Back/Spine no CVA tenderness Extremity General Extremity: edema bilateral lower extremity Details: mild Psych mental status grossly normal Appearance: grossly normal Speech: normal speech Assessment & Plan Assessment/Plan (1) Postoperative fever: (2) Subcutaneous abscess: (3) S/P : (4) Soft tissue abscess: (5) Tachycardia: PLAN: Plan patient is status post CT guided drainage of approximately 150cc bloody fluid from the subcutaneous space. Culture on this is pending blood cultures are pending continue zosyn and start vanc for possible cellulitis white count is stable and hg is increased from last check today. Fluid bolus now discussed case with Dr. Schmid and he agrees to keep her on the zosyn and addvanc Consulted General surgery also and talked with Dr. Rich and Dr. Hernandez who agreethat she should have the incision re-opened and drained then packed and consult wound vac team for secondary closure. She Agrees to proceed with this plan. Dr. Hernandez will perform the procedure at 7:30 am as the patient just finished a full meal at 6 pm. NPO after 11 pm 05/27/25 0047 <Electronically signed by Edel Bullock DO> Edel Cabrera Signature (if applicable): CC: ~ Signed [facility] Work Phone: 1(555) 711-173208-28-2025 Progress note [facility] Medical Records Department [address] [place] [address] Progress Note 05/27/25 0038 MR#: [id number] Acct: [id number] Name: BARBY CABALLERO Rep #:[id number] : 1990 34 From: Edel Bullock DO PCP: Dr. Steffen Eisenberg MD Status:ADM IN Location: [place]3 [id number] Progress Note late entry note: Nurse called at 1428 to report that the patient has spiked a fever of 101.4 and is tachycardic again. She also thinks her pannus erythema is getting worse possibly. Upon exam the erythema does appear to have spread. The patient is tearful and states that her abdominal skin feels more tight and more painful. A stat CT shows no worsening of the fluid collection in the subcutaneous space but remains to be 12x 4 cm in size. Physical Exam Const alert, oriented x3 and no apparent distress HEENT normocephalic Eyes PERRL Neck full ROM Lymph Lymphatic: no lymphadenopathy noted Chest inspection of chest normal Breast/Axilla Palpation: other Other Details: bilateral breasts are engorged. noobvious abscesses or lesion. The left nipple is cracked and there is dried bloodpresent. Resp normal respiratory effort Effort and Inspection: able to speak in complete sentences and symmetric chest movement Cardio regular rhythm Cardio Narrative: tachycardic 110 Rate: tachycardic GI GI Narrative: morbidly obese abdomen with 2 areas of ecchymosis measuring approximately 10 cm each. On on right side of pannus and one midline. The incision is clean, dry, intact. There is some overlapping of the incision in the midline measuring 1 cm.There is no oozing or discharge of any kind. The blisters that were reported appear to be secondary to her dressing. Palpation: tender and other Other Details: a line was drawn around the erythematous area to olivia borders ; Negative for guarding or rigid Narrative: some ecchymosis of the mons pubis. normal appearing external genitalia. Back/Spine no CVA tenderness Extremity General Extremity: edema bilateral lower extremity Details: mild Psych mental status grossly normal Appearance: grossly normal Speech: normal speech Assessment & Plan Assessment/Plan (1) Postoperative fever: (2) Subcutaneous abscess: (3) S/P : (4) Soft tissue abscess: (5) Tachycardia: PLAN: Plan patient is status post CT guided drainage of approximately 150cc bloody fluid from the subcutaneousspace. Culture on this is pending blood cultures are pending continue zosyn and start vanc for possible cellulitis white count is stable and hg is increased from last check today. Fluid bolus now discussed case with Dr. Schmid and he agrees to keep her on the zosyn and addvanc Consulted General surgery also and talked with Dr. Rich and Dr. Hernandez who agreethat she should have the incision re-opened and drained then packed and consult wound vac team for secondary closure. She Agrees to proceed with this plan. Dr. Hernandez will perform the procedure at 7:30 am as the patient just finished a full meal at 6 pm. NPO after 11 pm 05/27/25 0047 Edel aCbrera Signature (if applicable): CC: ~ Signed [facility]08-27-2025 Consult note Author Cee Chery [facility] Note Date/Time May 26, 2025 8: 17pm [facility] Medical Records Department [address] [place] [address] Pharmacokinetic/Renal -Consult 05/26/252016 MR#: [id number] Acct: [id number] Name: MERCEDESKiranBARBYKatie BLAND Rep #:[id number] : 1990 34 From: Cee Chery PCP: Dr. Steffen Eisenberg MD Status:ADM IN Location: [place] [address] Consult Antibiotic Management Pharmacy has been consulted to manage selected antibiotic: Vancomycin Type of Intervention Type of Consult: New start Suspected Infection Suspected Infection: Skin/Soft tissue Labs Labs: Sodium 139 mmol/L (133-145) 05/26/25 04:09 Potassium 3.2 mmol/L (3.3-5.1) L 05/26/25 04:09 Chloride 111 mmol/L (98-108) H 05/26/25 04:09 Carbon Dioxide 17.5 mmol/L (21.0-32.0) L 05/26/25 04:09 Anion Gap 11 (5-15) 05/26/25 04:09 BUN 8 mg/dL (4-19) 05/26/25 04:09 Creatinine 0.49 mg/dL (0.70-1.20) L 05/26/25 04:09 Est GFR (MDRD) Non-Af 126 (>60) 05/26/25 04:09 BUN/Creatinine Ratio 17.1 RATIO (10-20) 05/26/25 04:09 Glucose 67 mg/dL (70-99) L 05/26/25 04:09 Microbiology Microbiology: Microbiology 05/25/25 10:25 Interface Orders Gram Stain - Final 05/25/25 10:25 Interface Orders Body Fluid Culture - Preliminary Gram negative ryann Goal Trough Goal Trough: 15-20 mcg/mL Pharmacy Plan for Drug Dosing Pharmacy Plan for Drug Dosing: [facility] IV VANCOMYCIN Consulting Physician: Dr. Damico Indication: Cellulitis Goal Trough: 15-20 SrCr: 0.49 CrCl: 194 mL/min Comments: Patient had a loading dose of 2g IV x1 ordered and administered 05/26 @1958 Vancomycin Dose: 1500mg IV Q8h to start 05/27/25 @0400 Pending Level: 05/27/25 @1930, prior to 4th total dose of vancomycin per protocol Pharmacy Service will continue to monitor and adjust dosing as required. 05/26/252016 <Electronically signed by Cee Chery > Date _ Cee Chery Cosigner Signature (if applicable): Date CC: ~ Signed [facility] Work Phone: 1(179) 770-355208-27-2025 Consult note [facility] Medical Records Department [address] [place] [address] Pharmacokinetic/Renal -Consult 05/26/252016 MR#: [id number] Acct: [id number] Name: BARBY CABALLERO Rep #:[id number] : 1990 34 From: Cee Chery PCP: Dr. Steffen Eisenberg MD Status:ADM IN Location: [place] [id number] Consult Antibiotic Management Pharmacy has been consulted to manage selected antibiotic: Vancomycin Type of Intervention Type of Consult: New start Suspected Infection Suspected Infection: Skin/Soft tissue Labs Labs: Sodium 139 mmol/L (133-145) 05/26/25 04:09 Potassium 3.2 mmol/L (3.3-5.1) L 05/26/25 04:09 Chloride 111 mmol/L (98-108) H 05/26/25 04:09 Carbon Dioxide 17.5 mmol/L (21.0-32.0) L 05/26/25 04:09 Anion Gap 11 (5-15) 05/26/25 04:09 BUN 8 mg/dL (4-19) 05/26/25 04:09 Creatinine 0.49 mg/dL (0.70-1.20) L 05/26/25 04:09 Est GFR (MDRD) Non-Af 126 (>60) 05/26/25 04:09 BUN/Creatinine Ratio 17.1 RATIO (10-20) 05/26/25 04:09 Glucose 67 mg/dL (70-99) L 05/26/25 04:09 Microbiology Microbiology: Microbiology 05/25/25 10:25 Interface Orders Gram Stain - Final 05/25/25 10:25 Interface Orders Body Fluid Culture - Preliminary Gram negative ryann Goal Trough Goal Trough: 15-20 mcg/mL Pharmacy Plan for Drug Dosing Pharmacy Plan for Drug Dosing: NEW [facility] IV VANCOMYCIN Consulting Physician: Dr. Damico Indication: Cellulitis Goal Trough: 15-20 SrCr: 0.49 CrCl: 194 mL/min Comments: Patient had a loading dose of 2g IV x1 ordered and administered 05/26 @8 Vancomycin Dose: 1500mg IV Q8h to start 05/27/25 @0400 Pending Level: 05/27/25 @1930, prior to 4th total dose of vancomycin per protocol Pharmacy Service will continue to monitor and adjust dosing as required. 05/26/25 2017 > Date _ Cee Regula Cosigner Signature (if applicable): Date CC: ~ Signed [facility]08-27-2025 Radiology Diagnostic study note [facility] Imaging Services [address] [place] [address] Abdomen/Pelvis without Cont MR#: [id number] Acct: [id number] Name: BARBY CABALLERO Rep #: [id number] : 1990 F 34 From: Sloan Padron MD PCP: Dr. Steffen Eisenberg MD Status: ADM IN Study:Abdomen/Pelvis without Cont Date of Exa m: 05/26/25 Exam# [id number] Ordering Dr: Edel Rowley DO PROCEDURE: ABDOMEN/PELVIS WITHOUT CONT N/A REASON FOR EXAM: ABDOMINAL SWELLNG AFTER CT DRAINAGE Recent section. TECHNIQUE: ABDOMEN/PELVIS WITHOUT CONT Noncontrast technique limits evaluation of the abdominal and pelvic viscera. Coronal and Sagittal reconstruction series were provided. One or more dose reduction techniques were used (e.g., Automated exposure control, adjustment of the mA and/or kV according to patient size, use of iterative reconstruction technique). RADIATION DOSE SUMMARY: CTDlvol: 22.71 mGy DLP: 1249.35 mGycm COMPARISON: Prior study dated May 24, 2025. FINDINGS: Lung bases: Minimal bilateral pleural effusions with bibasilar atelectasis. There is evidence of congestion of both breasts with thickening of the skin. Liver: Hepatomegaly. Gallbladder: Surgically absent. Spleen: Normal size. Pancreas: Normal size. No surrounding inflammation. Adrenals: Unremarkable Kidneys: No urolithiasis. No hydronephrosis. Bladder: Unremarkable Reproductive Organs: Enlarged uterus in keeping with the recent gestation. Bowel: Unremarkable gas pattern Appendix: The appendix is not identified. There is no inflammatory process identified in the right lower quadrant to suggest appendicitis. Lymph nodes: No suspicious lymph node enlargement. Vasculature: The abdominal aorta and IVC contours are normal. Noncontrast technique limits evaluation. There is evidence of a 12.4 cm x 3.4 cm fluid collection in the deep subcutaneous tissues overlyingthe right lower quadrant/pelvis. This has decreased in size as compared to prior study. Bones: Unremarkable CT/Abdomen/Pelvis without Cont IMPRESSION: Essentially stable examination with decreased size of the previously seen fluid collection in the anterior right lower quadrant/pelvic wall. It presently measures 12.4 cm 3.4 cm. Reading Location: [id number] CC: Dr. Steffen Eisenberg MD; Dr. Edel Bullock DO ~ Aerial Applicator Pilot: Signed [facility]08-27-2025 Progress note Author Edel Diehl [facility] Note Date/Time May 26, 2025 8: 30am [facility] Medical Records Department [address] [place] [address] Progress Note - OBGYN 05/26/25817 MR#: [id number] Acct: [id number] Name: BARBY CABALLERO Rep #:[id number] : 1990 34 From: Edel Bullock DO PCP: Dr. Steffen Eisenberg MD Status:ADM IN Location: MS3 [id number] Subjective Subjective patient is in bed and looks overall well but is tearful today stating she is anxious, misses her family and her at home thinks she is going to . Iexplained to her that her white count is coming down as is her heart rate. She has not been fibrile for over 24 hours and that the only thing we are really waiting for are the culture results. This made her appear to feel better and I explained that I will check on her multiple times in the day today. Objective Data Objective Data Vital Signs: Vital Signs Temp Pulse Resp BP Pulse Ox O2 Del Method 98.2 F 102 H 18 117/69 99 Room Air 05/26/25 08:13 05/26/25 08:13 05/26/25 08:13 05/26/25 08:13 05/26/25 08:13 05/26/25 08:13 Oxygen Delivery Method Room Air Weight: 258 lb 2.581 oz Body Mass Index (BMI) 47.2 Intake & Output: Intake and Output for Last 24 Hours 05/24/25 05/25/25 05/26/25 23:59 23:59 23:59 Intake Total 2049 3838.33 / 4138.33 650 / 650 Balance 2049 3838.33 / 4138.33 650 / 650 Lab / Micro Data 05/26/25 04:09 05/26/25 04:09 Labs: Laboratory Results - last 24 hr 05/26/25 04:09: WBC 14.2 H, RBC 2.93 L, Hgb 8.6 L, Hct 26.0 L, MCV 88.7, MCH 29.4, MCHC 33.1, RDW Std Deviation 45.1 H, RDW Coeff of Tanner 13.8, Plt Count 324,MPV 8.5, Immature Gran % (Auto) 0.600, Neut % (Auto) 80.2 H, Lymph % (Auto) 10.7L, [place] % (Auto) 7.0, Eos % (Auto) 1.3, Baso % (Auto) 0.2, Absolute Neuts (auto)11.4 H, Absolute Lymphs (auto) 1.52, Nucleated RBC % 0, Sodium 139, Potassium 3.2 L, Chloride 111 H, Carbon Dioxide 17.5 L, Anion Gap 11, BUN 8, Creatinine 0.49 L, Estim Creat Clear Calc 194.54, Est GFR (MDRD) Non-Af 126, BUN/CreatinineRatio 17.1, Glucose 67 L, Calcium 8.1, Total Bilirubin 0.49, AST 21, ALT 21, Alkaline Phosphatase 98, Total Protein 5.3 L, Albumin 2.9 L, Globulin 2.4, Albumin/Globulin Ratio 1.2 Micro: Microbiology 05/25/25 10:25 Interface Orders Gram Stain - Final Radiography Diagnostic Testing: Radiology Impression Biopsy CT 05/25/25 19:18 IMPRESSION: Successful CT-guided drainage of the right/central lower abdominal/pelvic fluid collection. Laboratory results pending. Reading Location: [address] Constitutional Constitutional: Reports fatigue, fever(s), headache(s) and poor appetite; Deniesbody ache(s), change in weight or excessive sweating Cardiovascular Cardiovascular: Reports leg edema; Denies abdominal pain, chest pain, diaphoresis or dizziness Respiratory/Chest Respiratory/Chest: Denies chest tightness, cough or dyspnea Gastrointestinal Gastrointestinal: Denies belching, bloating, change in bowel habits, constipation, cramping, diarrhea or hemorrhoids Genitourinary Genitourinary: Denies burning urination or difficulty urinating Musculoskeletal Musculoskeletal: Reports none Integumentary Integumentary: Reports other Details: reports bruising on abdomen and blisters around her incision Psychiatric Psychiatric: Denies anxiety, confusion or depression Hematologic/Lymphatic Hematologic/Lymphatic: Reports systems reviewed and no addt'l complaints, exceptas documented Physical Exam Const alert, oriented x3 and no apparent distress HEENT normocephalic Eyes PERRL Neck full ROM Lymph Lymphatic: no lymphadenopathy noted Chest inspection of chest normal Breast/Axilla Palpation: other Other Details: bilateral breasts are engorged. noobvious abscesses or lesion. The left nipple is cracked and there is dried bloodpresent. Resp normal respiratory effort Effort and Inspection: able to speak in complete sentences and symmetric chest movement Cardio regular rhythm Cardio Narrative: tachycardic 110 Rate: tachycardic GI GI Narrative: morbidly obese abdomen with 2 areas of ecchymosis measuring approximately 10 cm each. On on right side of pannus and one midline. The incision is clean, dry, intact. There is some overlapping of the incision in the midline measuring 1 cm.There is no oozing or discharge of any kind. The blisters that were reported appear to be secondary to her dressing. Palpation: Negative for tender, guarding or rigid Narrative: some ecchymosis of the mons pubis. normal appearing external genitalia. Back/Spine no CVA tenderness Extremity General Extremity: edema bilateral lower extremity Details: mild Psych mental status grossly normal Appearance: grossly normal Speech: normal speech Assessment & Plan (1) Postoperative fever: (2) Subcutaneous abscess: (3) S/P : (4) Soft tissue abscess: (5) Tachycardia: PLAN: Plan patient is status post CT guided drainage of approximately 150cc bloody fluid from the subcutaneous space. Culture on this is pending blood cultures are pending continue zosyn and re-evaluate this afternoon white count is down and fever is gone. may be a candidate for outpatient antibiotic treatment soon. Charges/Coding Multi Select Codes Visit Charges Visit Charges: 47502 Subs Hosp L2 05/26/25 0830 <Electronically signed by Edel Bullock DO> Cosigner Signature (if applicable): CC: ~ Signed [facility] Work Phone: 1(707) 606-821608-27-2025 Progress note [facility] Medical Records Department [address] [place] [address] Progress Note - OBGYN 05/26/25817 MR#: [id number] Acct: [id number] Name: BARBY CABALLERO Rep #:[id number] : 1990 34 From: Edel Bullock DO PCP: Dr. Steffen Eisenberg MD Status:ADM IN Location: MS3 [id number] Subjective Subjective patient is in bed and looks overall well but is tearful today stating she is anxious, misses her family and her at home thinks she is going to . Iexplained to her that her white count is coming down as is her heart rate. She has not been fibrile for over 24 hours and that the only thing we are really waiting for are the culture results. This made her appear to feel better and I explained that I will check on her multiple times in the day today. Objective Data Objective Data Vital Signs: Vital Signs Temp Pulse Resp BP Pulse Ox O2 Del Method 98.2 F 102 H 18 117/69 99 Room Air 05/26/25 08:13 05/26/25 08:13 05/26/25 08:13 05/26/25 08:13 05/26/25 08:13 05/26/25 08:13 Oxygen Delivery Method Room Air Weight: 258 lb 2.581 oz Body Mass Index (BMI) 47.2 Intake & Output: Intake and Output for Last 24 Hours 05/24/25 05/25/25 05/26/25 23:59 23:59 23:59 Intake Total 2049 3838.33 / 4138.33 650 / 650 Balance 2049 3838.33 / 4138.33 650 / 650 Lab / Micro Data 05/26/25 04:09 05/26/25 04:09 Labs: Laboratory Results - last 24 hr 05/26/25 04:09: WBC 14.2 H, RBC 2.93 L, Hgb 8.6 L, Hct 26.0 L, MCV 88.7, MCH 29.4, MCHC 33.1, RDW Std Deviation 45.1 H, RDW Coeff of Tanner 13.8, Plt Count 324,MPV 8.5, Immature Gran % (Auto) 0.600, Neut % (Auto) 80.2 H, Lymph % (Auto) 10.7L, [place] % (Auto) 7.0, Eos % (Auto) 1.3, Baso % (Auto) 0.2, Absolute Neuts (auto)11.4 H, Absolute Lymphs (auto) 1.52, Nucleated RBC % 0, Sodium 139, Potassium 3.2 L, Chloride 111 H, Carbon Dioxide 17.5 L, Anion Gap 11, BUN 8, Creatinine 0.49 L, Estim Creat Clear Calc 194.54, Est GFR (MDRD) Non-Af 126, BUN/CreatinineRatio 17.1, Glucose 67 L, Calcium 8.1, Total Bilirubin 0.49, AST 21, ALT 21, Alkaline Phosphatase 98, Total Protein 5.3 L, Albumin 2.9 L, Globulin2.4, Albumin/Globulin Ratio 1.2 Micro: Microbiology 05/25/25 10:25 Interface Orders Gram Stain - Final Radiography Diagnostic Testing: Radiology Impression Biopsy CT 05/25/25 19:18 IMPRESSION: Successful CT-guided drainage of the right/central lower abdominal/pelvic fluid collection. Laboratory results pending. Reading Location: [address] Constitutional Constitutional: Reports fatigue, fever(s), headache(s) and poor appetite; Deniesbody ache(s), change in weight or excessive sweating Cardiovascular Cardiovascular: Reports leg edema; Denies abdominal pain, chest pain, diaphoresis or dizziness Respiratory/Chest Respiratory/Chest: Denies chest tightness, cough or dyspnea Gastrointestinal Gastrointestinal: Denies belching, bloating, change in bowel habits, constipation, cramping, diarrhea or hemorrhoids Genitourinary Genitourinary: Denies burning urination or difficulty urinating Musculoskeletal Musculoskeletal: Reports none Integumentary Integumentary: Reports other Details: reports bruising on abdomen and blisters around her incision Psychiatric Psychiatric: Denies anxiety, confusion or depression Hematologic/Lymphatic Hematologic/Lymphatic: Reports systems reviewed and no addt'l complaints, exceptas documented Physical Exam Const alert, oriented x3 and no apparent distress HEENT normocephalic Eyes PERRL Neck full ROM Lymph Lymphatic: no lymphadenopathy noted Chest inspection of chest normal Breast/Axilla Palpation: other Other Details: bilateral breasts are engorged. noobvious abscesses or lesion. The left nipple is cracked and there is dried bloodpresent. Resp normal respiratory effort Effort and Inspection: able to speak in complete sentences and symmetric chest movement Cardio regular rhythm Cardio Narrative: tachycardic 110 Rate: tachycardic GI GI Narrative: morbidly obese abdomen with 2 areas of ecchymosis measuring approximately 10 cm each. On on right side of pannus and one midline. The incision is clean, dry, intact. There is some overlapping of the incision in the midline measuring 1 cm.There is no oozing or discharge of any kind. The blisters that were reported appear to be secondary to her dressing. Palpation: Negative for tender, guarding or rigid Narrative: some ecchymosis of the mons pubis. normal appearing external genitalia. Back/Spine no CVA tenderness Extremity General Extremity: edema bilateral lower extremity Details: mild Psych mental status grossly normal Appearance: grossly normal Speech: normal speech Assessment & Plan (1) Postoperative fever: (2) Subcutaneous abscess: (3) S/P : (4) Soft tissue abscess: (5) Tachycardia: PLAN: Plan patient is status post CT guided drainage of approximately 150cc bloody fluid from the subcutaneousspace. Culture on this is pending blood cultures are pending continue zosyn and re-evaluate this afternoon white count is down and fever is gone. may be a candidate for outpatient antibiotic treatment soon. Charges/Coding Multi Select Codes Visit Charges Visit Charges: 63512 Subs Hosp L2 05/26/25 0830 Cosigner Signature (if applicable): CC: ~ Signed [facility]08-26-2025 Radiology Diagnostic study note [facility] Imaging Services [address] [place], [place] [id number] Biopsy/Inj or Needle Placement MR#: [id number] Acct: [id number] Name: BARBY CABALLERO Rep #: [id number] : 1990 F 34 From: Wellington Mccormick MD PCP: Dr. Steffen Eisenberg MD Status: ADM IN Study:Biopsy/Inj or Needle Placement Date of Exam: 05/25/25 Exam# [id number] Ordering Dr: Edel Rowley DO EXAM: CT-guided anterior abdominal/pelvic fluid drainage CLINICAL HISTORY: Right/central anterior lower abdominal/pelvic deep subcutaneous fluid collectioninpatient approximately 10 days . Lower abdominal/pelvic pain. COMPARISON: CT abdomen and pelvis of 05/24/2025. TECHNIQUE: Following informed consent, and using standard sterile technique, a CT-guided biopsy of the right/central lower abdominal/pelvic deep subcutaneous fluid collection was performed. 2% lidocaine local anesthesiawas followed by placement of a 10 cm [address] [place] Yue[address] catheter under CT guidance. Approximately 146 mL blood appearing fluid was successfully removed. Post imaging showed no complication, and a markedly diminished structure at the site of the aspirated fluid. No complication was encountered, the patient left the department in good condition without significant complaint. CT/Biopsy/Inj or Needle Placement IMPRESSION: Successful CT-guided drainage of the right/central lower abdominal/pelvic fluid collection. Laboratory results pending. Reading Location: [place] [address] CC: Dr. Steffen Eisenberg MD; Dr. Edel Bullock DO ~ Aerial Applicator Pilot: Signed [facility]08-26-2025 Progress note Author Edel Diehl [facility] Note Date/Time May 25, 2025 7: 45am [facility] Medical Records Department [address] [place] [id number] Progress Note - OBGYN 05/25/25 0740 MR#: [id number] Acct: [id number] Name: BARBY CABALLERO Rep #:[id number] : 1990 34 From: Edel Bullock DO PCP: Dr. Steffen Eisenberg MD Status:ADM IN Location: [facility] FB041-1 Subjective Subjective patient is standing at bedside. She appears somewhat diaphoretic and state that her heart is pounding. She denies worsening pain but does have some dysuria thisam. Her urine analysis was negative for UTI. She is on zosyn over night. She has been NPO since midnight. Objective Data Objective Data Vital Signs: Vital Signs Temp Pulse Resp BP Pulse Ox O2 Del Method 98.3 F 120 H 15 128/70 H 98 Room Air 05/25/25 06:32 05/25/25 06:32 05/25/25 06:32 05/25/25 04:00 05/25/25 06:32 05/25/25 06:32 Oxygen Delivery Method Room Air Weight: 258 lb 2.581 oz Body Mass Index (BMI) 47.2 Intake & Output: Intake and Output for Last 24 Hours 05/23/25 05/24/25 05/25/25 23:59 23:59 23:59 Intake Total 2049 876.67 / 876.67 Balance 2049 876.67 / 876.67 Lab / Micro Data 05/25/25 06:15 05/25/25 06:15 Labs: Laboratory Results - last 24 hr 05/24/25 14:30: WBC 18.7 H, RBC 3.36 L, Hgb 9.9 L, Hct 29.4 L, MCV 87.5, MCH 29.5, MCHC 33.7, RDW Std Deviation 42.8, RDW Coeff of Tanner 13.3, Plt Count 396, MPV 8.4, Immature Gran % (Auto) 0.600, Neut % (Auto) 89.0 H, Lymph % (Auto) 4.1 L, [place] % (Auto) 5.7, Eos % (Auto) 0.4, Baso % (Auto) 0.2, Absolute Neuts (auto)16.6 H, Absolute Lymphs (auto) 0.76 L, Nucleated RBC % 0, PT 12.8, INR 1.0, APTT22.5 L, Sodium 142, Potassium 3.5, Chloride 111 H, Carbon Dioxide 18.0 L, Anion Gap 13, BUN 9, Creatinine 0.54 L, Estim Creat Clear Calc 177.83, Est GFR (MDRD) Non-Af 123, BUN/Creatinine Ratio 15.9, Glucose 105 H, Lactic Acid < 1.0, Calcium7.7 05/24/25 15:38: Urine Color Yellow, Urine Clarity Clear, Urine pH 7.0, Ur Specific Frederick 1.005, Urine Protein 15 H, Urine Glucose (UA) Normal, Urine Ketones Negative, Urine Occult Blood 150 H, Urine Nitrite Negative, Urine Bilirubin Negative, Urine Urobilinogen Normal, Ur Leukocyte Esterase 100 H, Urine RBC 0-5 SEEN, Urine WBC 0-5 SEEN, Ur Squamous Epith Cells 0-5 SEEN, Urine Bacteria 0 SEEN, Urine Mucus 0 SEEN 05/24/25 22:48: WBC 20.4 H, RBC 3.25 L, Hgb 9.5 L, Hct 28.6 L, MCV 88.0, MCH 29.2, MCHC 33.2, RDW Std Deviation 43.4, RDW Coeff of Tanner 13.4, Plt Count 378, MPV 8.3, Immature Gran % (Auto) 0.800, Neut % (Auto) 87.0 H, Lymph % (Auto) 5.2 L, [place] % (Auto) 6.7, Eos % (Auto) 0.1, Baso % (Auto) 0.2, Absolute Neuts (auto)17.8 H, Absolute Lymphs (auto) 1.07, Nucleated RBC % 0 05/25/25 06:15: WBC 18.8 H, RBC 3.02 L, Hgb 8.9 L, Hct 26.7 L, MCV 88.4, MCH 29.5, MCHC 33.3, RDW Std Deviation 43.8, RDW Coeff of Tanner 13.5, Plt Count 343, MPV 8.2, Immature Gran % (Auto) 0.700, Neut % (Auto) 84.7 H, Lymph % (Auto) 7.7 L, [place] % (Auto) 6.5, Eos % (Auto) 0.1, Baso % (Auto) 0.3, Absolute Neuts (auto)15.9 H, Absolute Lymphs (auto) 1.45, Nucleated RBC % 0, PT 15.5 H, INR 1.2, Sodium 144, Potassium 3.0 L, Chloride 115 H, Carbon Dioxide 17.3 L, Anion Gap 12, BUN 9, Creatinine 0.54 L, Estim Creat Clear Calc 176.53, Est GFR (MDRD) Non-Af 123, BUN/Creatinine Ratio 16.4, Glucose 76, Lactic Acid < 1.0, Calcium 7.6, Total Bilirubin 0.66, AST 22, ALT 22, Alkaline Phosphatase 90, Total Protein 5.4L, Albumin 3.2 L, Globulin 2.2, Albumin/Globulin Ratio 1.4 Radiography Diagnostic Testing: Radiology Impression Abdomen/Pelvis CT 05/24/25 15:20 IMPRESSION: post operative changes about the ventral abdomen. There is a 15 x 5 x7 cm fluid collection at the ventral pelvis soft tissues which may reflect a seroma although abscess is not entirely excluded. Heterogenous uterus likely related to recent / although endometritis not entirely excluded. Reading Location: [facility] Chest CTA 05/24/25 15:20 IMPRESSION: No evidence of pulmonary embolism. Reading Location: [facility] ROS Constitutional Constitutional: Reports fatigue, fever(s), headache(s) and poor appetite; Deniesbody ache(s), change in weight or excessive sweating Cardiovascular Cardiovascular: Reports leg edema; Denies abdominal pain, chest pain, diaphoresis or dizziness Respiratory/Chest Respiratory/Chest: Denies chest tightness, cough or dyspnea Gastrointestinal Gastrointestinal: Denies belching, bloating, change in bowel habits, constipation, cramping, diarrhea or hemorrhoids Genitourinary Genitourinary: Denies burning urination or difficulty urinating Musculoskeletal Musculoskeletal: Reports none Integumentary Integumentary: Reports other Details: reports bruising on abdomen and blisters around her incision Psychiatric Psychiatric: Denies anxiety, confusion or depression Hematologic/Lymphatic Hematologic/Lymphatic: Reports systems reviewed and no addt'l complaints, exceptas documented Physical Exam Const alert, oriented x3 and no apparent distress HEENT normocephalic Eyes PERRL Neck full ROM Lymph Lymphatic: no lymphadenopathy noted Chest inspection of chest normal Breast/Axilla Palpation: other Other Details: bilateral breasts are engorged. noobvious abscesses or lesion. The left nipple is cracked and there is dried bloodpresent. Resp normal respiratory effort Effort and Inspection: able to speak in complete sentences and symmetric chest movement Cardio regular rhythm Cardio Narrative: tachycardic 110 Rate: tachycardic GI GI Narrative: morbidly obese abdomen with 2 areas of ecchymosis measuring approximately 10 cm each. On on right side of pannus and one midline. The incision is clean, dry, intact. There is some overlapping of the incision in the midline measuring 1 cm.There is no oozing or discharge of any kind. The blisters that were reported appear to be secondary to her dressing. Palpation: Negative for tender, guarding or rigid Narrative: some ecchymosis of the mons pubis. normal appearing external genitalia. Back/Spine no CVA tenderness Extremity General Extremity: edema bilateral lower extremity Details: mild Psych mental status grossly normal Appearance: grossly normal Speech: normal speech Assessment & Plan (1) Postoperative fever: (2) Subcutaneous abscess: (3) S/P : (4) Soft tissue abscess: (5) Tachycardia: PLAN: Plan continue plan from yesterday and look forward to recommendations from interventional radiology today If they are unable to drain this area I may need to reopen the space as her hg has dropped another gram since yesterday in the ER. ordering stat EKG due to palpitations, however on tele monitor it appears to be sinus tachycardia considering consulting GS for assistance if opening her up in the OR is the next step Charges/Coding Visit Charges Inpatient E&M: 92441 Subs Hosp L3 05/25/25 0745 <Electronically signed by Edel Bullock DO> Cosigner Signature (if applicable): CC: ~ Signed [facility] Work Phone: 1(624) 679-289408-26-2025 Progress note [facility] Medical Records Department [address] [place] [address] Progress Note - OBGYN 05/25/25 0740 MR#: [id number] Acct: [id number] Name: JOSEPHARINBARBYVICKI BLAND Rep #:[id number] : 1990 34 From: Edel Bullock DO PCP: Dr. Steffen Eisenberg MD Status:ADM IN Location: MS[facility] VM591-0 Subjective Subjective patient is standing at bedside. She appears somewhat diaphoretic and state that her heart is pounding. She denies worsening pain but does have some dysuria thisam. Her urine analysis was negative forUTI. She is on zosyn over night. She has been NPO since midnight. Objective Data Objective Data Vital Signs: Vital Signs Temp Pulse Resp BP Pulse Ox O2 Del Method 98.3 F 120 H 15 128/70 H 98 Room Air 05/25/25 06:32 05/25/25 06:32 05/25/25 06:32 05/25/25 04:00 05/25/25 06:32 05/25/25 06:32 Oxygen Delivery Method Room Air Weight: 258 lb 2.581 oz Body Mass Index (BMI) 47.2 Intake & Output: Intake and Output for Last 24 Hours 05/23/25 05/24/25 05/25/25 23:59 23:59 23:59 Intake Total 2049 876.67 / 876.67 Balance 2049 876.67 / 876.67 Lab / Micro Data 05/25/25 06:15 05/25/25 06:15 Labs: Laboratory Results - last 24 hr 05/24/25 14:30: WBC 18.7 H, RBC 3.36 L, Hgb 9.9 L, Hct 29.4 L, MCV 87.5, MCH 29.5, MCHC 33.7, RDW Std Deviation 42.8, RDW Coeff of Tanner 13.3, Plt Count 396, MPV 8.4, Immature Gran % (Auto) 0.600, Neut% (Auto) 89.0 H, Lymph % (Auto) 4.1 L, [place] % (Auto) 5.7, Eos % (Auto) 0.4, Baso % (Auto) 0.2, Absolute Neuts (auto)16.6 H, Absolute Lymphs (auto) 0.76 L, Nucleated RBC % 0, PT 12.8, INR 1.0, APTT22.5 L, Sodium 142, Potassium 3.5, Chloride 111 H, Carbon Dioxide 18.0 L, Anion Gap 13, BUN 9, Creatinine 0.54 L, Estim Creat Clear Calc 177.83, Est GFR (MDRD) Non-Af 123, BUN/Creatinine Ratio 15.9, Glucose 105 H, Lactic Acid < 1.0, Calcium7.7 05/24/25 15:38: Urine Color Yellow, Urine Clarity Clear, Urine pH 7.0, Ur Specific Frederick 1.005, Urine Protein 15 H, Urine Glucose (UA) Normal, Urine Ketones Negative, Urine Occult Blood 150 H, Urine Nitrite Negative, Urine Bilirubin Negative, Urine Urobilinogen Normal, Ur Leukocyte Esterase 100 H, Urine RBC 0-5 SEEN, Urine WBC 0-5 SEEN, Ur Squamous Epith Cells 0-5 SEEN, Urine Bacteria 0 SEEN, Urine Mucus 0 SEEN 05/24/25 22:48: WBC 20.4 H, RBC 3.25 L, Hgb 9.5 L, Hct 28.6 L, MCV 88.0, MCH 29.2, MCHC 33.2, RDW Std Deviation 43.4, RDW Coeff of Tanner 13.4, Plt Count 378, MPV 8.3, Immature Gran % (Auto) 0.800, Neut% (Auto) 87.0 H, Lymph % (Auto) 5.2 L, [place] % (Auto) 6.7, Eos % (Auto) 0.1, Baso % (Auto) 0.2, Absolute Neuts (auto)17.8 H, Absolute Lymphs (auto) 1.07, Nucleated RBC % 0 05/25/25 06:15: WBC 18.8 H, RBC 3.02 L, Hgb 8.9 L, Hct 26.7 L, MCV 88.4, MCH 29.5, MCHC 33.3, RDW Std Deviation 43.8, RDW Coeff of Tanner 13.5, Plt Count 343, MPV 8.2, Immature Gran % (Auto) 0.700, Neut% (Auto) 84.7 H, Lymph % (Auto) 7.7 L, [place] % (Auto) 6.5, Eos % (Auto) 0.1, Baso % (Auto) 0.3, Absolute Neuts (auto)15.9 H, Absolute Lymphs (auto) 1.45, Nucleated RBC % 0, PT 15.5 H, INR 1.2, Sodium 144, Potassium 3.0 L, Chloride 115 H, Carbon Dioxide 17.3 L, Anion Gap 12, BUN 9, Creatinine 0.54 L,Estim Creat Clear Calc 176.53, Est GFR (MDRD) Non-Af 123, BUN/Creatinine Ratio 16.4, Glucose 76, Lactic Acid < 1.0, Calcium 7.6, Total Bilirubin 0.66, AST 22, ALT 22, Alkaline Phosphatase 90, Total Protein 5.4L, Albumin 3.2 L, Globulin 2.2, Albumin/Globulin Ratio 1.4 Radiography Diagnostic Testing: Radiology Impression Abdomen/Pelvis CT 05/24/25 15:20 IMPRESSION: post operative changes about the ventral abdomen. There is a 15 x 5 x7 cm fluid collection at the ventral pelvis soft tissues which may reflect a seroma although abscess is not entirely excluded. Heterogenous uterus likely related to recent / although endometritis not entirelyexcluded. Reading Location: [facility] Chest CTA 05/24/25 15:20 IMPRESSION: No evidence of pulmonary embolism. Reading Location: [facility] ROS Constitutional Constitutional: Reports fatigue, fever(s), headache(s) and poor appetite; Deniesbody ache(s), change in weight or excessive sweating Cardiovascular Cardiovascular: Reports leg edema; Denies abdominal pain, chest pain, diaphoresis or dizziness Respiratory/Chest Respiratory/Chest: Denies chest tightness, cough or dyspnea Gastrointestinal Gastrointestinal: Denies belching, bloating, change in bowel habits, constipation, cramping, diarrhea or hemorrhoids Genitourinary Genitourinary: Denies burning urination or difficulty urinating Musculoskeletal Musculoskeletal: Reports none Integumentary Integumentary: Reports other Details: reports bruising on abdomen and blisters around her incision Psychiatric Psychiatric: Denies anxiety, confusion or depression Hematologic/Lymphatic Hematologic/Lymphatic: Reports systems reviewed and no addt'l complaints, exceptas documented Physical Exam Const alert, oriented x3 and no apparent distress HEENT normocephalic Eyes PERRL Neck full ROM Lymph Lymphatic: no lymphadenopathy noted Chest inspection of chest normal Breast/Axilla Palpation: other Other Details: bilateral breasts are engorged. noobvious abscesses or lesion. The left nipple is cracked and there is dried bloodpresent. Resp normal respiratory effort Effort and Inspection: able to speak in complete sentences and symmetric chest movement Cardio regular rhythm Cardio Narrative: tachycardic 110 Rate: tachycardic GI GI Narrative: morbidly obese abdomen with 2 areas of ecchymosis measuring approximately 10 cm each. On on right side of pannus and one midline. The incision is clean, dry, intact. There is some overlapping of the incision in the midline measuring 1 cm.There is no oozing or discharge of any kind. The blisters that were reported appear to be secondary to her dressing. Palpation: Negative for tender, guarding or rigid Narrative: some ecchymosis of the mons pubis. normal appearing external genitalia. Back/Spine no CVA tenderness Extremity General Extremity: edema bilateral lower extremity Details: mild Psych mental status grossly normal Appearance: grossly normal Speech: normal speech Assessment & Plan (1) Postoperative fever: (2) Subcutaneous abscess: (3) S/P : (4) Soft tissue abscess: (5) Tachycardia: PLAN: Plan continue plan from yesterday and look forward to recommendations from interventional radiology today If they are unable to drain this area I may need to reopen the space as her hg has dropped another gram since yesterday in the ER. 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 Steffen Eisenberg MD Status:ADM IN Location: [facility] [id number] HPI - General General Date of Admission: 05/24/25 HPI Narrative BARBY CABALLERO, is a 34 y/o , status post section on 05/12/25, who presents to [facility] ER with fever up to 102 at home. Here her Tmax was a 101. She was tachycardic upon presentation. CTA chest was negative for a PE, UA negative for UTI, CT abdomen shows a 15 cm seroma vs abscess vs blood clot of the ventralabdomen within the subcutaneous layer. She is exclusively pumping and states that her left breast excretes clotted blood and feels sore. [facility] Medical History (Updated 05/24/25 @ 19:[address] Edel Bullock, DO) PCOS (polycystic ovarian syndrome) Infertility Depression with anxiety GERD (gastroesophageal reflux disease) Home Medications ?Medication ?Instructions ?Recorded ?Last Taken ?Type escitalopram oxalate 10 mg tablet 10 mg PO DAILY anxie ty/depression 07/20/24 05/23/25 Rx (Lexapro) #30 tabs docosahexaenoic acid 200 mg 200 mg PO DAILY #90 caps 07/28/24 05/23/25 Rx capsule ( DHA) famotidine 40 mg tablet (Pepcid) 40 mg PO DAILY indige stion #30 tabs 01/11/25 05/23/25 Rx breast pump #1 ea 01/29/25 Unknown Rx ibuprofen 800 mg tablet 800 mg PO Q8H PRN pain #30 t abs 05/12/25 05/24/25 Rx acetaminophen 500 mg capsule 1,000 mg PO Q6H PRN fever or pain 05/24/25 05/24/25 History Allergy/AdvReac Type Severity Reaction Status Date / Time No Known Allergies Allergy Verified 05/12/25 06:30 Family History Mother Hypertension Grandfather Heart disease Hypertension Diabetes Cancer Macular degeneration Grandmother Macular degeneration Surgical History (Updated 05/24/25 @ 18:[address] 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 Date Name GA/Weeks Outcome Route Bth Weight Infant Gen Labor Lgth Anesthesia Del Locatn Provider FOB 07/18/21 Larry 40 live [facility] - full [facility] Male sp inal [facility] [place] Delivery Date: 07/18/21 Last Updated by: Aida Shields RN Induce d/t failure to progress naturally .. Slow progression of labor w/ decels .. Failed vacuum delivery into emergency csec Delivery Date: 05/12/25 Last Updated by: Aida Shields RN Repeat CS ROS Constitutional Constitutional: Reports fatigue, fever(s), headache(s) and poor appetite; Deniesbody ache(s), change in weight or excessive sweating Cardiovascular Cardiovascular: Reports leg edema; Denies abdominal pain, chest pain, diaphoresis or dizziness Respiratory/Chest Respiratory/Chest: Denies chest tightness, cough or dyspnea Gastrointestinal Gastrointestinal: Denies belching, bloating, change in bowel habits, constipation, cramping, diarrhea or hemorrhoids Genitourinary Genitourinary: Denies burning urination or difficulty urinating Musculoskeletal Musculoskeletal: Reports none Integumentary Integumentary: Reports other Details: reports bruising on abdomen and blisters around her incision Psychiatric Psychiatric: Denies anxiety, confusion or depression Hematologic/Lymphatic Hematologic/Lymphatic: Reports systems reviewed and no addt'l complaints, exceptas documented Vital Signs Vital Signs Vital Signs: 05/24/25 13:55 05/24/25 13:56 05/24/25 14:08 Temperature 101.2 F H 100.4 F H Temperature Source Oral Oral Pulse Rate 168 H 135 H Respiratory Rate 22 H 25 H Respiratory Effort Normal Respiratory Pattern Normal Blood Pressure 138/94 H 151/76 H Blood Pressure Mean 108 101 Pulse Ox 98 99 Oxygen Delivery Method Room Air Room Air 05/24/25 14:31 05/24/25 14:59 05/24/25 15:00 Temperature 100.1 F H 99.6 F H Temperature Source Oral Oral Pulse Rate 138 H 122 H Respiratory Rate 26 H 27 H Respiratory Effort Respiratory Pattern Blood Pressure 153/75 H 110/53 L Blood Pressure Mean 101 72 Pulse Ox 98 97 98 Oxygen Delivery Method Room Air Room Air Room Air 05/24/25 16:00 05/24/25 17:04 05/24/25 18:22 Temperature 99.6 F H 99.1 F 98.6 F Temperature Source Oral Oral Oral Pulse Rate 129 H 121 H 125 H Respiratory Rate 20 H 27 H 20 H Respiratory Effort Respiratory Pattern Blood Pressure 133/71 H 117/74 120/76 Blood Pressure Mean 91 88 90 Pulse Ox 99 97 99 Oxygen Delivery Method Room Air Room Air Room Air 05/24/25 18:25 Temperature 98.6 F Temperature Source Pulse Rate 125 H Respiratory Rate 20 H Respiratory Effort Respiratory Pattern Blood Pressure 120/76 Blood Pressure Mean 90 Pulse Ox 99 Oxygen Delivery Method Weight Weight: 261 lb 4.8 oz Body Mass Index (BMI) 47.7 Physical Exam Const alert, oriented x3 and no apparent distress HEENT normocephalic Eyes PERRL Neck full ROM Lymph Lymphatic: no lymphadenopathy noted Chest inspection of chest normal Breast/Axilla Palpation: other Other Details: bilateral breasts are engorged. noobvious abscesses or lesion. The left nipple is cracked and there is dried bloodpresent. Resp normal respiratory effort Effort and Inspection: able to speak in complete sentences and symmetric chest movement Cardio regular rhythm Cardio Narrative: tachycardic 110 Rate: tachycardic GI GI Narrative: morbidly obese abdomen with 2 areas of ecchymosis measuring approximately 10 cm each. On on right side of pannus and one midline. The incision is clean, dry, intact. There is some overlapping of the incision in the midline measuring 1 cm.There is no oozing or discharge of any kind. The blisters that were reported appear to be secondary to her dressing. Palpation: Negative for tender, guarding or rigid Narrative: some ecchymosis of the mons pubis. normal appearing external genitalia. Back/Spine no CVA tenderness Extremity General Extremity: edema bilateral lower extremity Details: mild Psych mental status grossly normal Appearance: grossly normal Speech: normal speech Labs Labs Labs: Blood Type B NEGATIVE Antibody Screen NEGATIVE Hct 29.4 % (37-47) L Hgb 9.9 g/dL (12.0-15.0) L Pap Smear Negative Syphilis Total Ab Nonreactive [...] Test COMMENT (.) Assessment & Plan (1) Postoperative fever: (2) Subcutaneous abscess: (3) S/P : (4) Soft tissue abscess: (5) Tachycardia: PLAN: Plan 1. Admit to [facility] and collect blood cultures x 2 2. start zosyn 3.375 iv q 6 hrs 3. tylenol for fever 4. oxycodone and Ibuprofen for pain 5. consult to interventional radiology in the am for possible drainage of fluid collection to send for culture 6. continue to pump breast milk and store in refrigerator 7. NPO after midnight. reg diet until then 05/24/251921 <Electronically signed by Edel Bullock DO> Cosigner Signature (if applicable): CC: Dr. Steffen Eisenberg MD; Dr. Edel Bullock DO~ Signed ADDENDUM by Dr. Edel Bullock DO on 05/24/25 at 1922 Multi Select Codes Visit Charges Visit Charges: 36382 Init Hosp L3 05/24/251921<Electronically signed by Edel Bullock DO> Cosigner Signature (if applicable): cc: Dr. Steffen Eisenberg MD; Dr. Edel Bullock DO ~* Signed [facility] Work Phone: 1(106) 557-943008-25-2025 Discharge summary Author Pee Sargent [facility] Note Date/Time May 24, 2025 6: 39pm [facility] Medical Records Department [address] [place] [address] Emergency Department Summary 05/24/25 MR#: [id number] Acct: [id number] Name: BARBY CABALLERO Rep #:[id number] : 1990 34 From: Pee Staley PCP: Dr. Steffen Eisenberg MD Status:REG ER Location: ED HPI History of Present Illness Chief Complaint: Fever PFSH PFSH Medical History (Updated 05/24/25 @ 18:[address] Pee Sargent DO) PCOS (polycystic ovarian syndrome) Infertility Depression with anxiety GERD (gastroesophageal reflux disease) Home Medications ?Medication ?Instructions ?Recorded ?Last Taken ?Type escitalopram oxalate 10 mg tablet 10 mg PO DAILY anxie ty/depression 07/20/24 05/23/25 Rx (Lexapro) #30 tabs docosahexaenoic acid 200 mg 200 mg PO DAILY #90 caps 07/28/24 05/23/25 Rx capsule ( DHA) famotidine 40 mg tablet (Pepcid) 40 mg PO DAILY indige stion #30 tabs 01/11/25 05/23/25 Rx breast pump #1 ea 01/29/25 Unknown Rx ibuprofen 800 mg tablet 800 mg PO Q8H PRN pain #30 t abs 05/12/25 05/24/25 Rx acetaminophen 500 mg capsule 1,000 mg PO Q6H PRN fever or pain 05/24/25 05/24/25 History Allergy/AdvReac Type Severity Reaction Status Date / Time No Known Allergies Allergy Verified 05/12/25 06:30 Family History Mother Hypertension Grandfather Heart disease Hypertension Diabetes Cancer Macular degeneration Grandmother Macular degeneration Surgical History (Updated 05/24/25 @ 18:[address] 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) pets and animals: cat(s) history of recent travel: Yes ([place] for IVF) out of state: Yes sexually [...] physical activity do you participate in: none landon/moravian: None seatbelt use: always do you feel safe at home: Yes additional social history: : [employer] (works from home) EXAM Physical Exam Const Vital Signs: 05/24/25 13:55 05/24/25 13:56 05/24/25 14:08 Temperature 101.2 F H 100.4 F H Temperature Source Oral Oral Pulse Rate 168 H 135 H Respiratory Rate 22 H 25 H Respiratory Effort Normal Respiratory Pattern Normal Blood Pressure 138/94 H 151/76 H Blood Pressure Mean 108 101 Pulse Ox 98 99 Oxygen Delivery Method Room Air Room Air 05/24/25 14:31 05/24/25 14:59 05/24/25 15:00 Temperature 100.1 F H 99.6 F H Temperature Source Oral Oral Pulse Rate 138 H 122 H Respiratory Rate 26 H 27 H Respiratory Effort Respiratory Pattern Blood Pressure 153/75 H 110/53 L Blood Pressure Mean 101 72 Pulse Ox 98 97 98 Oxygen Delivery Method Room Air Room Air Room Air 05/24/25 16:00 05/24/25 17:04 05/24/25 18:22 Temperature 99.6 F H 99.1 F 98.6 F Temperature Source Oral Oral Oral Pulse Rate 129 H 121 H 125 H Respiratory Rate 20 H 27 H 20 H Respiratory Effort Respiratory Pattern Blood Pressure 133/71 H 117/74 120/76 Blood Pressure Mean 91 88 90 Pulse Ox 99 97 99 Oxygen Delivery Method Room Air Room Air Room Air 05/24/25 18:25 Temperature 98.6 F Temperature Source Pulse Rate 125 H Respiratory Rate 20 H Respiratory Effort Respiratory Pattern Blood Pressure 120/76 Blood Pressure Mean 90 Pulse Ox 99 Oxygen Delivery Method MDM MDM MDM Narrative Medical decision making narrative: Differential diagnosis includes pneumonia, bronchitis, pulmonary embolism, postoperative infection, dehydration, electrolyte abnormality, urinary tract infection, sepsis, and anxiety. CT of the chest will be obtained to assess for pulmonary embolism and pneumonia. CT scan of the abdomen pelvis will be obtained to assess for postoperative infection, bowel obstruction, perforation, and pyelonephritis. CBC will be obtained to assess for leukocytosis and anemia. Basic metabolic profile will be obtained to assess for electrolyte abnormality and renal function. Serum lactate will be obtained to assess for sepsis. PT with INR and PTT will be obtained to assess for coagulopathy. Urinalysis will be obtained to assess for urinary tract infection and hematuria. History & Record Review Additional record(s) reviewed:: Prior inpatient record and Prior labs Lab Data Attestation: I reviewed the patient's lab results. Lab results narrative: CBC was reviewed. There is a leukocytosis of 18.7. Hemoglobin was 9.9 and hematocrit was 29.4. Basic metabolic profile was reviewed and was essentially within normal limits. Serum lactate was reviewed and was less than 1.0. PT with INR and PTT were reviewed and were within normal limits. Urinalysis was reviewed. Occult blood was 150. Leukocyte esterase was 100. There are 0-5 white blood cells and 0-5 epithelial cells. There are 0-5 red blood cells. There is no bacteria noted. Labs: Laboratory Results - last 24 hr 05/24/25 05/24/25 14:30 15:38 WBC 18.7 H RBC 3.36 L Hgb 9.9 L Hct 29.4 L MCV 87.5 MCH 29.5 MCHC 33.7 RDW Std Deviation 42.8 RDW Coeff of Tanner 13.3 Plt Count 396 MPV 8.4 Immature Gran % (Auto) 0.600 Neut % (Auto) 89.0 H Lymph % (Auto) 4.1 L [place] % (Auto) 5.7 Eos % (Auto) 0.4 Baso % (Auto) 0.2 Absolute Neuts (auto) 16.6 H Absolute Lymphs (auto) 0.76 L Nucleated RBC % 0 PT 12.8 INR 1.0 APTT 22.5 L Sodium 142 Potassium 3.5 Chloride 111 H Carbon Dioxide 18.0 L Anion Gap 13 BUN 9 Creatinine 0.54 L Estim Creat Clear Calc 177.83 Est GFR (MDRD) Non-Af 123 BUN/Creatinine Ratio 15.9 Glucose 105 H Lactic Acid < 1.0 Calcium 7.7 Urine Color Yellow Urine Clarity Clear Urine pH 7.0 Ur Specific [place] 1.005 Urine Protein 15 H Urine Glucose (UA) Normal Urine Ketones Negative Urine Occult Blood 150 H Urine Nitrite Negative Urine Bilirubin Negative Urine Urobilinogen Normal Ur Leukocyte Esterase 100 H Urine RBC 0-5 SEEN Urine WBC 0-5 SEEN Ur Squamous Epith Cells 0-5 SEEN Urine Bacteria 0 SEEN Urine Mucus 0 SEEN Radiography Diagnostic Testing: Clinical Impression(s) from Imaging Studies Abdomen/Pelvis CT 05/24/25 15:20 IMPRESSION: post operative changes about the ventral abdomen. There is a 15 x 5 x7 cm fluid collection at the ventral pelvis soft tissues which may reflect a seroma although abscess is not entirely excluded. Heterogenous uterus likely related to recent / although endometritis not entirely excluded. Reading Location: [facility] Chest CTA 05/24/25 15:20 IMPRESSION: No evidence of pulmonary embolism. Reading Location: [place] [address] CT of the chest was obtained. There is no evidence of pulmonary embolism. There is no infiltrate noted. There is no pneumothorax noted. There is no evidence of aortic dissection. This was interpreted by the radiologist was alsoindependently reviewed by myself. CT scan of the abdomen pelvis was obtained. There is postoperative changes fromC-section. There is a 15 x 5 x 7 cm fluid collection at the ventral pelvis softtissues. This may be a seroma although abscess is not excluded. This was interpreted by the radiologist and was also independently reviewed by myself. EKG Initial EKG: Attestation: I personally reviewed and interpreted this EKG as follows: Interpretation: Sinus Tachycardia (147) and Non-Specific ST Changes Comments: EKG was obtained. On my independent interpretation, it showed asinus tachycardia with a rate of 147. SC interval, QRS interval, and QTc intervals were all normal. [place] was normal. There are nonspecific ST-T wave changes. Prior EKG tracings: available for review Prior: Unchanged (11/10/2024) Treatment and Re-Evaluation :: Patient was given IV fluids and ibuprofen. Patient's heart rate improved from 168 to 121. Patient's temperature improved to 99.1. Patient was given a repeatbolus of normal saline. Patient was advised of her findings. Case was discussed with Kiley Jain from [employer]. She discussed the case with Dr. Damico who called in. I discussed the case with her as well. She will admit the patient to her service to the medical surgical floor. Patient was startedon Zosyn. Patient and spouse understood and were agreeable with the plan. All questions were answered. Discharge Plan Dx/Rx/DC Orders Clinical Impression: Soft tissue abscess, S/P , Tachycardia Disposition Disposition: Acute Care Hospital [facility] What to do if you have Problems For any increased pain, shortness of breath, bleeding, nausea or vomiting, chestpain, or any unexpected problems, contact your Primary Care Provider. Call [facility] ([phone]) or report to the closest Emergency Room. Call 911 if necessary. 05/24/25 183 <Electronically signed by Pee Sargent DO> Cosigner Signature (if applicable): CC: Dr. Steffen Eisenberg MD ~ Signed [facility] Work Phone: 1(932) 253-368608-25-2025 History and physical note [facility] Medical Records Department [address] [place] [id number] H&P Exam - [employer] 05/24/25 1905 MR#: [id number] Acct: [id number] Name: BARBY CABALLERO Rep #:[id number] : 1990 34 From: Edel Bullock DO PCP: Dr. Steffen Eisenberg MD Status:ADM IN Location: [facility] [id number] HPI - General General Date of Admission: 05/24/25 HPI Narrative BARBY CABALLERO, is a 34 y/o , status post section on 05/12/25, who presents to [facility] ER with fever up to 102 at home. Here her Tmax was a 101. She was tachycardic upon presentation. CTA chest was negative for a PE, UA negative for UTI, CT abdomen shows a 15 cm seroma vs abscess vs blood clot of the ventralabdomen within the subcutaneous layer. She is exclusively pumping and states that her left breast excretes clotted blood and feels sore. [facility] Medical History (Updated 05/24/25 @ 19:[address] Edel Bullock, DO) PCOS (polycystic ovarian syndrome) Infertility Depression with anxiety GERD (gastroesophageal reflux disease) Home Medications ?Medication ?Instructions ?Recorded ?Last Taken ?Type escitalopram oxalate 10 mg tablet 10 mg PO DAILY anxie ty/depression 07/20/24 05/23/25 Rx (Lexapro) #30 tabs docosahexaenoic acid 200 mg 200 mg PO DAILY #90 caps 07/28/24 05/23/25 Rx capsule ( DHA) famotidine 40 mg tablet (Pepcid) 40 mg PO DAILY indige stion #30 tabs 01/11/25 05/23/25 Rx breast pump #1 ea 01/29/25 Unknown Rx ibuprofen 800 mg tablet 800 mg PO Q8H PRN pain #30 t abs 05/12/25 05/24/25 Rx acetaminophen 500 mg capsule 1,000 mg PO Q6H PRN fever or pain 05/24/25 05/24/25 History Allergy/AdvReac Type Severity Reaction Status Date / Time No Known Allergies Allergy Verified 05/12/25 06:30 Family History Mother Hypertension Grandfather Heart disease Hypertension Diabetes Cancer Macular degeneration Grandmother Macular degeneration Surgical History (Updated 05/24/25 @ 18:[address] 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 Date Name GA/Weeks Outcome Route Bth Weight Infant Gen Labor Lgth Anesthesia Del Locatn Provider FOB 07/18/21 Larry 40 live - full term 7lbs 7oz Male [facility] 05/12/25 39 live - full term Male sp inal [facility] Delivery Date: 07/18/21 Last Updated by: Aida Shields RN Induce d/t failure to progress naturally .. Slow progression of labor w/ decels .. Failed vacuum delivery into emergency csec Delivery Date: 05/12/25 Last Updated by: Aida Shields RN Repeat CS ROS Constitutional Constitutional: Reports fatigue, fever(s), headache(s) and poor appetite; Deniesbody ache(s), change in weight or excessive sweating Cardiovascular Cardiovascular: Reports leg edema; Denies abdominal pain, chest pain, diaphoresis or dizziness Respiratory/Chest Respiratory/Chest: Denies chest tightness, cough or dyspnea Gastrointestinal Gastrointestinal: Denies belching, bloating, change in bowel habits, constipation, cramping, diarrhea or hemorrhoids Genitourinary Genitourinary: Denies burning urination or difficulty urinating Musculoskeletal Musculoskeletal: Reports none Integumentary Integumentary: Reports other Details: reports bruising on abdomen and blisters around her incision Psychiatric Psychiatric: Denies anxiety, confusion or depression Hematologic/Lymphatic Hematologic/Lymphatic: Reports systems reviewed and no addt'l complaints, exceptas documented Vital Signs Vital Signs Vital Signs: 05/24/25 13:55 05/24/25 13:56 05/24/25 14:08 Temperature 101.2 F H 100.4 F H Temperature Source Oral Oral Pulse Rate 168 H 135 H Respiratory Rate 22 H 25 H Respiratory Effort Normal Respiratory Pattern Normal Blood Pressure 138/94 H 151/76 H Blood Pressure Mean 108 101 Pulse Ox 98 99 Oxygen Delivery Method Room Air Room Air 05/24/25 14:31 05/24/25 14:59 05/24/25 15:00 Temperature 100.1 F H 99.6 F H Temperature Source Oral Oral Pulse Rate 138 H 122 H Respiratory Rate 26 H 27 H Respiratory Effort Respiratory Pattern Blood Pressure 153/75 H 110/53 L Blood Pressure Mean 101 72 Pulse Ox 98 97 98 Oxygen Delivery Method Room Air Room Air Room Air 05/24/25 16:00 05/24/25 17:04 05/24/25 18:22 Temperature 99.6 F H 99.1 F 98.6 F Temperature Source Oral Oral Oral Pulse Rate 129 H 121 H 125 H Respiratory Rate 20 H 27 H 20 H Respiratory Effort Respiratory Pattern Blood Pressure 133/71 H 117/74 120/76 Blood Pressure Mean 91 88 90 Pulse Ox 99 97 99 Oxygen Delivery Method Room Air Room Air Room Air 05/24/25 18:25 Temperature 98.6 F Temperature Source Pulse Rate 125 H Respiratory Rate 20 H Respiratory Effort Respiratory Pattern Blood Pressure 120/76 Blood Pressure Mean 90 Pulse Ox 99 Oxygen Delivery Method Weight Weight: 261 lb 4.8 oz Body Mass Index (BMI) 47.7 Physical Exam Const alert, oriented x3 and no apparent distress HEENT normocephalic Eyes PERRL Neck full ROM Lymph Lymphatic: no lymphadenopathy noted Chest inspection of chest normal Breast/Axilla Palpation: other Other Details: bilateral breasts are engorged. noobvious abscesses or lesion. The left nipple is cracked and there is dried bloodpresent. Resp normal respiratory effort Effort and Inspection: able to speak in complete sentences and symmetric chest movement Cardio regular rhythm Cardio Narrative: tachycardic 110 Rate: tachycardic GI GI Narrative: morbidly obese abdomen with 2 areas of ecchymosis measuring approximately 10 cm each. On on right side of pannus and one midline. The incision is clean, dry, intact. There is some overlapping of the incision in the midline measuring 1 cm.There is no oozing or discharge of any kind. The blisters that were reported appear to be secondary to her dressing. Palpation: Negative for tender, guarding or rigid Narrative: some ecchymosis of the mons pubis. normal appearing external genitalia. Back/Spine no CVA tenderness Extremity General Extremity: edema bilateral lower extremity Details: mild Psych mental status grossly normal Appearance: grossly normal Speech: normal speech Labs Labs Labs: Blood Type B NEGATIVE Antibody Screen NEGATIVE Hct 29.4 % (37-47) L Hgb 9.9 g/dL (12.0-15.0) L Pap Smear Negative Syphilis Total Ab Nonreactive [...] Test COMMENT (.) Assessment & Plan (1) Postoperative fever: (2) Subcutaneous abscess: (3) S/P : (4) Soft tissue abscess: (5) Tachycardia: PLAN: Plan 1. Admit to MS3 and collect blood cultures x 2 2. start zosyn 3.375 iv q 6 hrs 3. tylenol for fever 4. oxycodone and Ibuprofen for pain 5. consult to interventional radiology in the am for possible drainage of fluid collection to send for culture 6. continue to pump breast milk and store in refrigerator 7. NPO after midnight. reg diet until then 05/24/251921 Cosigner Signature (if applicable): CC: Dr. Steffen Eisenberg MD; Dr. Edel Bullock DO~ Signed ADDENDUM by Dr. Edel Bullock DO on 05/24/25 at 1922 Multi Select Codes Visit Charges Visit Charges: 47514 Init Hosp L3 05/24/251921 Cosigner Signature (if applicable): cc: Dr. Steffen Eisenberg MD; Dr. Edel Bullock DO ~* Signed [facility]08-25-2025 Discharge summary [facility] Medical Records Department [address] [place] [address] Emergency Department Summary 05/24/25 MR#: [id number] Acct: [id number] Name: BARBY CABALLERO Rep #:[id number] : 1990 34 From: Pee Staley PCP: Dr. Steffen Eisenberg MD Status:REG ER Location: ED HPI History of Present Illness Chief Complaint: Fever PFSH PFSH Medical History (Updated 05/24/25 @ 18:[address] Pee Sargent DO) PCOS (polycystic ovarian syndrome) Infertility Depression with anxiety GERD (gastroesophageal reflux disease) Home Medications ?Medication ?Instructions ?Recorded ?Last Taken ?Type escitalopram oxalate 10 mg tablet 10 mg PO DAILY anxie ty/depression 07/20/24 05/23/25 Rx (Lexapro) #30 tabs docosahexaenoic acid 200 mg 200 mg PO DAILY #90 caps 07/28/24 05/23/25 Rx capsule ( DHA) famotidine 40 mg tablet (Pepcid) 40 mg PO DAILY indige stion #30 tabs 01/11/25 05/23/25 Rx breast pump #1 ea 01/29/25 Unknown Rx ibuprofen 800 mg tablet 800 mg PO Q8H PRN pain #30 t abs 05/12/25 05/24/25 Rx acetaminophen 500 mg capsule 1,000 mg PO Q6H PRN fever or pain 05/24/25 05/24/25 History Allergy/AdvReac Type Severity Reaction Status Date / Time No Known Allergies Allergy Verified 05/12/25 06:30 Family History Mother Hypertension Grandfather Heart disease Hypertension Diabetes Cancer Macular degeneration Grandmother Macular degeneration Surgical History (Updated 05/24/25 @ 18:[address] 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) pets and animals: cat(s) history of recent travel: Yes ([place] for IVF) out of state: Yes sexually [...] physical activity do you participate in: none landon/moravian: None seatbelt use: always do you feel safe at home: Yes additional social history: : [employer] (works from home) EXAM Physical Exam Const Vital Signs: 05/24/25 13:55 05/24/25 13:56 05/24/25 14:08 Temperature 101.2 F H 100.4 F H Temperature Source Oral Oral Pulse Rate 168 H 135 H Respiratory Rate 22 H 25 H Respiratory Effort Normal Respiratory Pattern Normal Blood Pressure 138/94 H 151/76 H Blood Pressure Mean 108 101 Pulse Ox 98 99 Oxygen Delivery Method Room Air Room Air 05/24/25 14:31 05/24/25 14:59 05/24/25 15:00 Temperature 100.1 F H 99.6 F H Temperature Source Oral Oral Pulse Rate 138 H 122 H Respiratory Rate 26 H 27 H Respiratory Effort Respiratory Pattern Blood Pressure 153/75 H 110/53 L Blood Pressure Mean 101 72 Pulse Ox 98 97 98 Oxygen Delivery Method Room Air Room Air Room Air 05/24/25 16:00 05/24/25 17:04 05/24/25 18:22 Temperature 99.6 F H 99.1 F 98.6 F Temperature Source Oral Oral Oral Pulse Rate 129 H 121 H 125 H Respiratory Rate 20 H 27 H 20 H Respiratory Effort Respiratory Pattern Blood Pressure 133/71 H 117/74 120/76 Blood Pressure Mean 91 88 90 Pulse Ox 99 97 99 Oxygen Delivery Method Room Air Room Air Room Air 05/24/25 18:25 Temperature 98.6 F Temperature Source Pulse Rate 125 H Respiratory Rate 20 H Respiratory Effort Respiratory Pattern Blood Pressure 120/76 Blood Pressure Mean 90 Pulse Ox 99 Oxygen Delivery Method MDM MDM MDM Narrative Medical decision making narrative: Differential diagnosis includes pneumonia, bronchitis, pulmonary embolism, postoperative infection,dehydration, electrolyte abnormality, urinary tract infection, sepsis, and anxiety. CT of the chestwill be obtained to assess for pulmonary embolism and pneumonia. CT scan of the abdomen pelvis willbe obtained to assess for postoperative infection, bowel obstruction, perforation, and pyelonephritis. CBC will be obtained to assess for leukocytosis and anemia. Basic metabolic profile will be obtained to assess for electrolyte abnormality and renal function. Serum lactate will be obtained to assess for sepsis. PT with INR and PTT will be obtained to assess for coagulopathy. Urinalysis will be o btained to assess for urinary tract infection and hematuria. History & Record Review Additional record(s) reviewed:: Prior inpatient record and Prior labs Lab Data Attestation: I reviewed the patient's lab results. Lab results narrative: CBC was reviewed. There is a leukocytosis of 18.7. Hemoglobin was 9.9 and hematocrit was 29.4. Basic metabolic profile was reviewed and was essentially within normal limits. Serum lactate was reviewed and was less than 1.0. PT with INR and PTT were reviewed and were within normal limits. Urinalysiswas reviewed. Occult blood was 150. Leukocyte esterase was 100. There are 0-5 white blood cells and0-5 epithelial cells. There are 0-5 red blood cells. There is no bacteria noted. Labs: Laboratory Results - last 24 hr 05/24/25 05/24/25 14:30 15:38 WBC 18.7 H RBC 3.36 L Hgb 9.9 L Hct 29.4 L MCV 87.5 MCH 29.5 MCHC 33.7 RDW Std Deviation 42.8 RDW Coeff of Tanner 13.3 Plt Count 396 MPV 8.4 Immature Gran % (Auto) 0.600 Neut % (Auto) 89.0 H Lymph % (Auto) 4.1 L [place] % (Auto) 5.7 Eos % (Auto) 0.4 Baso % (Auto) 0.2 Absolute Neuts (auto) 16.6 H Absolute Lymphs (auto) 0.76 L Nucleated RBC % 0 PT 12.8 INR 1.0 APTT 22.5 L Sodium 142 Potassium 3.5 Chloride 111 H Carbon Dioxide 18.0 L Anion Gap 13 BUN 9 Creatinine 0.54 L Estim Creat Clear Calc 177.83 Est GFR (MDRD) Non-Af 123 BUN/Creatinine Ratio 15.9 Glucose 105 H Lactic Acid < 1.0 Calcium 7.7 Urine Color Yellow Urine Clarity Clear Urine pH 7.0 Ur Specific [place] 1.005 Urine Protein 15 H Urine Glucose (UA) Normal Urine Ketones Negative Urine Occult Blood 150 H Urine Nitrite Negative Urine Bilirubin Negative Urine Urobilinogen Normal Ur Leukocyte Esterase 100 H Urine RBC 0-5 SEEN Urine WBC 0-5 SEEN Ur Squamous Epith Cells 0-5 SEEN Urine Bacteria 0 SEEN Urine Mucus 0 SEEN Radiography Diagnostic Testing: Clinical Impression(s) from Imaging Studies Abdomen/Pelvis CT 05/24/25 15:20 IMPRESSION: post operative changes about the ventral abdomen. There is a 15 x 5 x7 cm fluid collection at the ventral pelvis soft tissues which may reflect a seroma although abscess is not entirely excluded. Heterogenous uterus likely related to recent / although endometritis not entirelyexcluded. Reading Location: [facility] Chest CTA 05/24/25 15:20 IMPRESSION: No evidence of pulmonary embolism. Reading Location: [place] [address] CT of the chest was obtained. There is no evidence of pulmonary embolism. There is no infiltrate noted. There is no pneumothorax noted. There is no evidence of aortic dissection. This was interpretedby the radiologist was alsoindependently reviewed by myself. CT scan of the abdomen pelvis was obtained. There is postoperative changes fromC-section. There is a 15 x 5 x 7 cm fluid collection at the ventral pelvis softtissues. This may be a seroma although abscess is not excluded. This was interpreted by the radiologist and was also independently reviewed by myself. EKG Initial EKG: Attestation: I personally reviewed and interpreted this EKG as follows: Interpretation: Sinus Tachycardia (147) and Non-Specific ST Changes Comments: EKG was obtained. On my independent interpretation, it showed asinus tachycardia with a rate of 147. SC interval, QRS interval, and QTc intervals were all normal. [place] was normal. There arenonspecific ST-T wave changes. Prior EKG tracings: available for review Prior: Unchanged (11/10/2024) Treatment and Re-Evaluation :: Patient was given IV fluids and ibuprofen. Patient's heart rate improved from 168 to 121. Patient'stemperature improved to 99.1. Patient was given a repeatbolus of normal saline. Patient was advisedof her findings. Case was discussed with Kiley Jain from [employer]. She discussed the case with Dr. Damico who called in. I discussed the case with her as well. She will admit the patient to herservice to the medical surgical floor. Patient was startedon Zosyn. Patient and spouse understood and were agreeable with the plan. All questions were answered. Discharge Plan Dx/Rx/DC Orders Clinical Impression: Soft tissue abscess, S/P , Tachycardia Disposition Disposition: Acute Care Hospital [facility] What to do if you have Problems For any increased pain, shortness of breath, bleeding, nausea or vomiting, chestpain, or any unexpected problems, contact your Primary Care Provider. Call [facility] ([phone]) or report tothe closest Emergency Room. Call 911 if necessary. 05/24/25 1839 Cosigner Signature (if applicable): CC: Dr. Steffen Eisenberg MD ~ Signed [facility]08-25-2025 Radiology Diagnostic study note [facility] Imaging Services [address] [place] [address] Abdomen/Pelvis W IV Cont ONLY MR#: [id number] Acct: [id number] Name: BARBY CABALLERO Rep #: [id number] : 1990 F 34 From: Annmarie Avilez MD PCP: Dr. Steffen Eisenberg MD Status: REG ER Study:Abdomen/Pelvis W IV Cont ONLY Date of E xam: 05/24/25 Exam# [id number] Ordering Dr: Pee Sargent DO PROCEDURE: ABDOMEN/PELVIS W IV CONT ONLY 05/24/2025 REASON FOR EXAM: FEVER, STATUS POST TECHNIQUE: ABDOMEN/PELVIS W IV CONT ONLY Coronal and Sagittal reconstruction series were provided. CONTRAST: 100 mL of Isovue 370 One or more dose reduction techniques were used (e.g., Automated exposure control, adjustment of the mA and/or kV according to patient size, use of iterative reconstruction technique. RADIATION DOSE SUMMARY: DLP: 456 mGycm COMPARISON: none FINDINGS: Limited sections of the lung bases demonstrate no focal pulmonary mass or consolidations. The liver, spleen, pancreas, and both adrenal glands demonstrate no acute findings. Hepatomegaly to20.9 cm. The gallbladder is surgically removed. The stomach is unremarkable. The small bowel loops are not dilated. The appendix is not clearly identified, although there are no secondary signs ofappendicitis. No colonic obstruction. There is no free air or significant free fluid. The kidneys are unremarkable. The urinary bladder is partially distended. Heterogenous uterus likely related to recent /. post operative changes about the vental abdomen. There is a 15 x 5 x 7 cm fluid collection at the ventral pelvis soft tissues which may reflect a seroma although abscess is not entirely excluded. No significant lymphadenopathy. The aorta and IVC demonstrate no acute findings. Visualized osseous structures demonstrate no acute abnormality. CT/Abdomen/Pelvis W IV Cont ONLY IMPRESSION: post operative changes about the ventral abdomen. There is a 15 x 5 x7 cm fluid collection at the ventral pelvis soft tissues which may reflect a seroma although abscess is not entirely excluded. Heterogenous uterus likely related to recent / although endometritis not entirelyexcluded. Reading Location: [facility] CC: Dr. Steffen Eisenberg MD; Dr. Pee Sargent, DO ~ Aerial Applicator Pilot: Signed [facility]08-25-2025 Radiology Diagnostic study note [facility] Imaging Services [address] [place] [address] CTA Chest W/WO Contrast MR#: [id number] Acct: [id number] Name: BARBY CABALLERO Rep #: [id number] : 1990 F 34 From: Wellington Mccormick MD PCP: Dr. Steffen Eisenberg MD Status: REG ER Study:CTA Chest W/WO Contrast Date of Exam: 05/24/25 Exam# [id number] Ordering Dr: Pee Sargent DO PROCEDURE: CTA CHEST W/WO CONTRAST 05/24/2025 REASON FOR EXAM: DYSPNEA, fever, and chills. Tachycardia. Approximately 10 days . Prior cholecystectomy. TECHNIQUE: CTA CHEST W/WO CONTRAST Multiplanar Sagittal and Coronal images were obtained. Isovue 370 VOLUME: 100 mL intravenous. One or more dose reduction techniques were used (e.g., Automated exposure control, adjustment of the mA and/or kV according to patient size, use of iterative reconstruction technique). RADIATION DOSE SUMMARY: DLP: 2100.94 mGy-cm. COMPARISON: None. FINDINGS: No findings of pulmonary embolism are seen. No focal infiltrate is noted. No evidence of pulmonary edema. No pleural effusion or pneumothorax is seen. No adenopathy is evident. No pericardial effusion is seen. The heart appearance is unremarkable. No thoracic aortic aneurysm is noted. The visualized upper abdomen shows prior cholecystectomy. No acute process is seen at the visualized upper abdomen. Mild thoracic spine degenerative changes are noted. CT/CTA Chest W/WO Contrast IMPRESSION: No evidence of pulmonary embolism. Reading Location: [place] [address] CC: Dr. Steffen Eisenberg MD; Dr. Pee Sargent DO ~ Aerial Applicator Pilot: Signed [facility]08-25-2025 Discharge summary Author Pee Sargent [facility] Note Date/Time May 24, 2025 6: 39pm [facility] Medical Records Department [address] [place] [address] Emergency Department Summary 05/24/25 MR#: [id number] Acct: [id number] Name: BARBY CABALLERO Rep #:[id number] : 1990 34 From: Pee Staley PCP: Dr. Steffen Eisenberg MD Status:[facility] ER Location: ED HPI History of Present Illness Chief Complaint: Fever PFSH PFSH Medical History (Updated 05/24/25 @ 18:[address] Pee Sargent DO) PCOS (polycystic ovarian syndrome) Infertility Depression with anxiety GERD (gastroesophageal reflux disease) Home Medications ?Medication ?Instructions ?Recorded ?Last Taken ?Type escitalopram oxalate 10 mg tablet 10 mg PO DAILY anxie ty/depression 07/20/24 05/23/25 Rx (Lexapro) #30 tabs docosahexaenoic acid 200 mg 200 mg PO DAILY #90 caps 07/28/24 05/23/25 Rx capsule ( DHA) famotidine 40 mg tablet (Pepcid) 40 mg PO DAILY indige stion #30 tabs 01/11/25 05/23/25 Rx breast pump #1 ea 01/29/25 Unknown Rx ibuprofen 800 mg tablet 800 mg PO Q8H PRN pain #30 t abs 05/12/25 05/24/25 Rx acetaminophen 500 mg capsule 1,000 mg PO Q6H PRN fever or pain 05/24/25 05/24/25 History Allergy/AdvReac Type Severity Reaction Status Date / Time No Known Allergies Allergy Verified 05/12/25 06:30 Family History Mother Hypertension Grandfather Heart disease Hypertension Diabetes Cancer Macular degeneration Grandmother Macular degeneration Surgical History (Updated 05/24/25 @ 18:[address] 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) pets and animals: cat(s) history of recent travel: Yes ([place] for IVF) out of state: Yes sexually [...] physical activity do you participate in: none landon/moravian: None seatbelt use: always do you feel safe at home: Yes additional social history: : 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) EXAM Physical Exam Const Vital Signs: 05/24/25 13:55 05/24/25 13:56 05/24/25 14:08 Temperature 101.2 F H 100.4 F H Temperature Source Oral Oral Pulse Rate 168 H 135 H Respiratory Rate 22 H 25 H Respiratory Effort Normal Respiratory Pattern Normal Blood Pressure 138/94 H 151/76 H Blood Pressure Mean 108 101 Pulse Ox 98 99 Oxygen Delivery Method Room Air Room Air 05/24/25 14:31 05/24/25 14:59 05/24/25 15:00 Temperature 100.1 F H 99.6 F H Temperature Source Oral Oral Pulse Rate 138 H 122 H Respiratory Rate 26 H 27 H Respiratory Effort Respiratory Pattern Blood Pressure 153/75 H 110/53 L Blood Pressure Mean 101 72 Pulse Ox 98 97 98 Oxygen Delivery Method Room Air Room Air Room Air 05/24/25 16:00 05/24/25 17:04 05/24/25 18:22 Temperature 99.6 F H 99.1 F 98.6 F Temperature Source Oral Oral Oral Pulse Rate 129 H 121 H 125 H Respiratory Rate 20 H 27 H 20 H Respiratory Effort Respiratory Pattern Blood Pressure 133/71 H 117/74 120/76 Blood Pressure Mean 91 88 90 Pulse Ox 99 97 99 Oxygen Delivery Method Room Air Room Air Room Air 05/24/25 18:25 Temperature 98.6 F Temperature Source Pulse Rate 125 H Respiratory Rate 20 H Respiratory Effort Respiratory Pattern Blood Pressure 120/76 Blood Pressure Mean 90 Pulse Ox 99 Oxygen Delivery Method MDM MDM MDM Narrative Medical decision making narrative: Differential diagnosis includes pneumonia, bronchitis, pulmonary embolism, postoperative infection, dehydration, electrolyte abnormality, urinary tract infection, sepsis, and anxiety. CT of the chest will be obtained to assess for pulmonary embolism and pneumonia. CT scan of the abdomen pelvis will be obtained to assess for postoperative infection, bowel obstruction, perforation, and pyelonephritis. CBC will be obtained to assess for leukocytosis and anemia. Basic metabolic profile will be obtained to assess for electrolyte abnormality and renal function. Serum lactate will be obtained to assess for sepsis. PT with INR and PTT will be obtained to assess for coagulopathy. Urinalysis will be obtained to assess for urinary tract infection and hematuria. History & Record Review Additional record(s) reviewed:: Prior inpatient record and Prior labs Lab Data Attestation: I reviewed the patient's lab results. Lab results narrative: CBC was reviewed. There is a leukocytosis of 18.7. Hemoglobin was 9.9 and hematocrit was 29.4. Basic metabolic profile was reviewed and was essentially within normal limits. Serum lactate was reviewed and was less than 1.0. PT with INR and PTT were reviewed and were within normal limits. Urinalysis was reviewed. Occult blood was 150. Leukocyte esterase was 100. There are 0-5 white blood cells and 0-5 epithelial cells. There are 0-5 red blood cells. There is no bacteria noted. Labs: Laboratory Results - last 24 hr 05/24/25 05/24/25 14:30 15:38 WBC 18.7 H RBC 3.36 L Hgb 9.9 L Hct 29.4 L MCV 87.5 MCH 29.5 MCHC 33.7 RDW Std Deviation 42.8 RDW Coeff of Tanner 13.3 Plt Count 396 MPV 8.4 Immature Gran % (Auto) 0.600 Neut % (Auto) 89.0 H Lymph % (Auto) 4.1 L [place] % (Auto) 5.7 Eos % (Auto) 0.4 Baso % (Auto) 0.2 Absolute Neuts (auto) 16.6 H Absolute Lymphs (auto) 0.76 L Nucleated RBC % 0 PT 12.8 INR 1.0 APTT 22.5 L Sodium 142 Potassium 3.5 Chloride 111 H Carbon Dioxide 18.0 L Anion Gap 13 BUN 9 Creatinine 0.54 L Estim Creat Clear Calc 177.83 Est GFR (MDRD) Non-Af 123 BUN/Creatinine Ratio 15.9 Glucose 105 H Lactic Acid < 1.0 Calcium 7.7 Urine Color Yellow Urine Clarity Clear Urine pH 7.0 Ur Specific [place] 1.005 Urine Protein 15 H Urine Glucose (UA) Normal Urine Ketones Negative Urine Occult Blood 150 H Urine Nitrite Negative Urine Bilirubin Negative Urine Urobilinogen Normal Ur Leukocyte Esterase 100 H Urine RBC 0-5 SEEN Urine WBC 0-5 SEEN Ur Squamous Epith Cells 0-5 SEEN Urine Bacteria 0 SEEN Urine Mucus 0 SEEN Radiography Diagnostic Testing: Clinical Impression(s) from Imaging Studies Abdomen/Pelvis CT 05/24/25 15:20 IMPRESSION: post operative changes about the ventral abdomen. There is a 15 x 5 x7 cm fluid collection at the ventral pelvis soft tissues which may reflect a seroma although abscess is not entirely excluded. Heterogenous uterus likely related to recent / although endometritis not entirely excluded. Reading Location: [facility] Chest CTA 05/24/25 15:20 IMPRESSION: No evidence of pulmonary embolism. Reading Location: [place] [address] CT of the chest was obtained. There is no evidence of pulmonary embolism. There is no infiltrate noted. There is no pneumothorax noted. There is no evidence of aortic dissection. This was interpreted by the radiologist was alsoindependently reviewed by myself. CT scan of the abdomen pelvis was obtained. There is postoperative changes fromC-section. There is a 15 x 5 x 7 cm fluid collection at the ventral pelvis softtissues. This may be a seroma although abscess is not excluded. This was interpreted by the radiologist and was also independently reviewed by myself. EKG Initial EKG: Attestation: I personally reviewed and interpreted this EKG as follows: Interpretation: Sinus Tachycardia (147) and Non-Specific ST Changes Comments: EKG was obtained. On my independent interpretation, it showed asinus tachycardia with a rate of 147. SC interval, QRS interval, and QTc intervals were all normal. [place] was normal. There are nonspecific ST-T wave changes. Prior EKG tracings: available for review Prior: Unchanged (11/10/2024) Treatment and Re-Evaluation :: Patient was given IV fluids and ibuprofen. Patient's heart rate improved from 168 to 121. Patient's temperature improved to 99.1. Patient was given a repeatbolus of normal saline. Patient was advised of her findings. Case was discussed with Kiley Jain from [employer]. She discussed the case with Dr. Damico who called in. I discussed the case with her as well. She will admit the patient to her service to the medical surgical floor. Patient was startedon Zosyn. Patient and spouse understood and were agreeable with the plan. All questions were answered. Discharge Plan Dx/Rx/DC Orders Clinical Impression: Soft tissue abscess, S/P , Tachycardia [facility] What to do if you have Problems For any increased pain, shortness of breath, bleeding, nausea or vomiting, chestpain, or any unexpected problems, contact your Primary Care Provider. Call [facility] ([phone]) or report to the closest Emergency Room. Call 911 if necessary. 05/24/25 1839 <Electronically signed by Pee Sargent DO> Cosigner Signature (if applicable): CC: Dr. Steffen Eisenberg MD ~ Signed [facility] Work Phone: [phone] Progress note [facility] Medical Records Department [address] [place] [address] Progress Note - OBGYN 05/13/25 181 MR#: [id number] Acct: [id number] Name: BARBY CABALLERO Rep #:[id number] : 1990 34 From: Apple fuentes MD PCP: Dr. Steffen Eisenberg MD Status:ADM IN [facility] Subjective Subjective LATE ENTRY- patient seent at [...] : Roxana Agudelo Hgb POSITIVE H 05/13/25 04:42: WBC 15.0 [...] 74.0 H, Lymph % (Auto) 17.1 L, [place] % (Auto) 6.6, Eos % (Auto) 0.9, [...] neg rhogam given 4. rubella immune 05/13/251811 Cosigner Signature (if applicable): CC: ~ Signed [facility]08-16-2025 Discharge summary Author Mariana Jonas [facility] Note Date/Time May 15, 2025 12 :14pm [facility] Medical Records Department [address] [place] [address] Discharge Summary 05/15/25 0842 MR#: [id number] Acct: [id number] Name: BARBY CABALLERO Rep #:[id number] : 1990 34 From: Mariana Jonas CNM PCP: Dr. Steffen Eisenberg MD Status:ADM IN Location: [place] [address] Providers Date of Admission: 05/12/25 Primary Care [...] Up With: Edel Bullock DO When: Call [phone] to make an appointment for an incision [...] NU Jonas; Dr. Steffen Eisenberg MD~ Signed [facility] Work Phone: 1(194) 512-221008-16-2025 Discharge summary [facility] Medical Records Department [address] [place] [address] Discharge Summary 05/15/25 0842 MR#: [id number] Acct: [id number] Name: BARBY CABALLERO Rep #:[id number] : 1990 34 From: Mariana Jonas CNM PCP: Dr. Steffen Eisenberg MD Status:ADM IN Location: TK697-1 Providers Date of Admission: 05/12/25 Primary Care [...] Up With: Edel Bullock DO When: Call [phone] to make an appointment for an incision [...] NU Jonas; Dr. Steffen Eisenberg MD~ Signed [facility]08-16-2025 Progress note Author Mariana Jonas [facility] Note Date/Time May 15, 2025 8: 42am [facility] Medical Records Department [address] [place] [address] Progress Note - OBGYN 05/15/25 0840 MR#: [id number] Acct: [id number] Name: BARBY CABALLERO Rep #:[id number] : 1990 34 From: Mariana Jonas CNM PCP: Dr. Steffen Eisenberg MD Status:ADM IN Location: OP831-5 Subjective Subjective Patient doing well without complaints. [...] Cosigner Signature (if applicable): CC: ~ Signed [facility] Work Phone: [phone] 577-392708-16-2025 [facility]08-16-2025 Progress note [facility] Medical Records Department [address] [place] [address] Progress Note - OBGYN 05/15/25 0840 MR#: [id number] Acct: [id number] Name: BARBY CABALLERO Rep #:[id number] : 1990 34 From: Mariana Jonas CNM PCP: Dr. Steffen Eisenberg MD Status:ADM IN [facility] Subjective Subjective Patient doing well without complaints. [...] Cosigner Signature (if applicable): CC: ~ Signed [facility]08-15-2025 Progress note Author Mariana Jonas [facility] Note Date/Time May 14, 2025 8: 30am [facility] Medical Records Department [address] [place] [address] Progress Note - OBGYN 05/14/25 0828 MR#: [id number] Acct: [id number] Name: BARBY CABALLERO Rep #:[id number] : 1990 34 From: Mariana Jonas CNM PCP: Dr. Steffen Eisenberg MD Status:ADM IN [facility] Subjective Subjective Patient doing well without complaints. [...] 74.0 H, Lymph % (Auto) 17.1 L, [place] % (Auto) 6.6, Eos % (Auto) 0.9, [...] Cosigner Signature (if applicable): CC: ~ Signed [facility] Work Phone: [phone] Progress note [facility] Medical Records Department [address] [place] [address] Progress Note - OBGYN 05/14/25827 MR#: [id number] Acct: [id number] Name: BARBY CABALLERO Rep #:[id number] : 1990 34 From: Mariana Jonas CNM PCP: Dr. Steffen Eisenberg MD Status:ADM IN [facility] Subjective Subjective Patient doing well without complaints. [...] 74.0 H, Lymph % (Auto) 17.1 L, [place] % (Auto) 6.6, Eos % (Auto) 0.9, [...] Cosigner Signature (if applicable): CC: ~ Signed [facility]08-14-2025 Progress note Author Apple Lao [facility] Note Date/Time May 15, 2025 2: 25pm [facility] Medical Records Department [address] [place] [address] Progress Note - OBGYN 05/13/251811 MR#: [id number] Acct: [id number] Name: BARBY CABALLERO Rep #:[id number] : 1990 34 From: Apple feuntes MD PCP: Dr. Steffen Eisenberg MD Status:ADM IN Location: FA884-8 Subjective Subjective LATE ENTRY- patient seent at [...] : Roxana Agudelo Hgb POSITIVE H 05/13/25 04:42: WBC 15.0 [...] 74.0 H, Lymph % (Auto) 17.1 L, [place] % (Auto) 6.6, Eos % (Auto) 0.9, [...] Cosigner Signature (if applicable): CC: ~ Signed [facility] Work Phone: [phone]) 129-149408-14-2025 Progress note Author Apple Lao [facility] Note Date/Time May 13, 2025 6: 08pm [facility] Medical Records Department [address] [place] [address] Progress Note 05/13/25 1807 MR#: [id number] Acct: [id number] Name: BARBY CABALLERO Rep #:[id number] : 1990 34 From: Apple fuentes MD PCP: Dr. Steffen Eisenberg MD Status:ADM IN Location: QT228-6 Progress Note Patient evaluated due to passing [...] Cosigner Signature (if applicable): CC: ~ Signed [facility] Work Phone: [phone] Progress note [facility] Medical Records Department [address] [place] [address] Progress Note 05/13/251806 MR#: [id number] Acct: [id number] Name: BARBY CABALLERO Rep #:[id number] : 1990 34 From: Apple fuentes MD PCP: Dr. Steffen Eisenberg MD Status:ADM IN Location: [place] [address] Progress Note Patient evaluated due to passing [...] episode due to passing large clot. 05/13/251807 Apple Lao MD Cosigner Signature (if applicable): CC: ~ Signed [facility]08-13-2025 Procedure note [facility] Medical Records Department [address] [place] [address] Operative Report 05/12/25 0920 MR#: [id number] Acct: [id number] Name: BARBY CABALLERO Rep #:[id number] : 1990 34 From: Edel Bullock DO PCP: Dr. Steffen Eisenberg MD Status:ADM IN Location: QK115-4 Assessment & Plan (1) GBS (group B Streptococcus carrier), +RV culture, currently : COMMENT: treat in labor (2) Itching: (3) Abnormal glucose affecting : COMMENT: passed 3 hour gtt (4) H/O section: COMMENT: x1, 2020. desires [...] incision was made with the scalpel. The infant's head was delivered atraumatically followed by the anterior and posterior shoulders without complication the rest of the infant delivered. The cord was clamped and cut and the was handed off to awaiting nurse. The [...] Vessel Description: 3 Vessels Cord Entanglement: None Infant A gender: Male (1 minute): 8 (5 minute): 9 Delayed Cord Clamping: Yes Calender Wind Up Helper energy projects lead: Yes Tube Station Attendant: Mark Jauregui Tasks completed by ambulance assistant: Closing and Retracting Additional merchandising assistant?: No Complications Complications: No Multi Select Codes Urinary/Genital Urinary/Genital CPT Codes: 88817 Delivery global pkg 05/12/25 0926 Cosigner Signature (if applicable): CC: Dr. Steffen Eisenberg MD; Dr. Edel Bullock DO~ Signed [facility]08-13-2025 Discharge summary Author Edel Diehl [facility] Note Date/Time May 12, 2025 7: 21am [facility] Medical Records Department [address] [facility] [place] [address] Instructions for Home/Discharge Instructions 05/12/25 0719 MR#: [id number] Acct: [id number] Name: BARBY CABALLERO Rep #:[id number] : [...] Up With: Edel Bullock DO When: Call [phone] to make an appointment for an incision [...] CC: Dr. Steffen Eisenberg MD ~ Signed [facility] Work Phone: [phone] History and physical note Author [facility] Note Date/Time May 12, 2025 7: 16am [facility] Medical Records Department [address] [place] [address] H&P Exam - [employer] 05/12/25 0714 MR#: [id number] Acct: [id number] Name: BARBY CABALLERO Rep #:[id number] : 1990 34 From: Edel Bullock DO PCP: Dr. 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 Date Name GA/Weeks Outcome Route Bth Weight Gen Labor Lgth Anesthesia Del Locatn Provider FOB 07/18/21 Larry 40 live - full term 7lbs 7oz Male [facility] [place] Delivery Date: 07/18/21 Last Updated [...] growth scans at 34 and 38 weeks. [facility] signed today JV- no lof, vaginal bleeding , or dec fm. has growth scans at 34 and 38 weeks. [facility] signed today. pelvic exam performed for tightening [...] 3 hour gtt (3) H/O section: COMMENT: 2020. desires repeat C/S: RLTCS 05/12/25 JV. [...] Eisenberg MD; Dr. Edel Bullock DO~ Signed [facility] Work Phone: 1(960) 701-783008-13-2025 Discharge summary [facility] Medical Records Department [address] [place] [address] Instructions for Home/Discharge Instructions 05/12/25 0719 MR#: [id number] Acct: [id number] Name: BARBY CABALLERO Rep #:[id number] : [...] Up With: Edel Bullock DO When: Call [phone] to make an appointment for an incision [...] can be placed): Home, Self Care 05/12/25 0721Edel Bullock DO CC: Dr. 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 Date Name GA/Weeks Outcome Route Bth Weight Infant Gen Labor Lgth Anesthesia Del Locatn Provider FOB 07/18/21 Larry 40 live - full term 7lbs 7oz Male [facility] [place] Delivery Date: 07/18/21 Last Updated [...] Eisenberg MD; Dr. Edel Bullock DO~ Signed [facility]07-30-2025 Progress [facility] [address] [place] [address], [address] [place] [address] OFFICE VISIT Date of Service: 04/28/25 MR#: [id number] Acct: [id number] Name: BARBY CABALLERO Rep #: [id number] : 1990 Provider: Dr. Kellen Bullock DO Age/Sex: 34/F Location: [facility] Status: Signed Intake Vital Signs 03/10/25 14:28 04/20/25 14:13 04/28/25 14:03 04/28/25 14:05 Height 5 ft 2 in 5 ft 2 in 5 ft 2 in 5 ft 2 in Weight: 268 lb 4 oz 265 lb 4 oz BMI 49.0 48.5 BP 116/81 H 123/86 H Intake Visit Reasons: 37 WK OB *CSECTION/JV Electrician Deck Required: No Is patient in pain?: No [...] 81 mg tablet 81 mg PO DAILY 04/19/2504/01 History magnesium 200 mg tablet 200 mg [...] 1 current occupational status: unemployed current occupation: [employer] current occupational exposures/hazards: No 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 declines NIPT had genetic testing at [facility] 11/05/24 -?-?-?-?-?-?-?-?-?-?-?-?- 12w 1d 260 lb [...] growth scans at 34 and 38 weeks. [facility] signed today JV- no lof, vaginal bleeding , or dec fm. has growth scans at 34 and 38 weeks. [facility] signed today. 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 Date Name GA/Weeks Outcome Route Bth Weight Gen Labor Lgth Anesthesia Del [facility] Provider FOB 07/18/21 Larry 40 live - full term 7lbs 7oz Male [facility] [place] Delivery Date: 07/18/21 Last Updated [...] growth scans at 34 and 38 weeks. [facility] signed today. 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 Steffen Eisenberg MD Status: REG CLI Study:OB Biophysical Prof W/O NST Date of Exa m: 04/22/25 Exam# [id number] Ordering Dr: Edel Rowley DO PROCEDURE: OB [...] NST IMPRESSION: Normal biophysical profile. Reading Location: [facility] CC: Dr. Steffen Eisenberg MD; Dr. Edel Bullock, DO ~ Aerial Applicator Pilot: Signed [facility]07-22-2025 Progress [facility] [address], [address] [place] [address] OFFICE VISIT Date of Service: 04/20/25 MR#: [id number] Acct: [id number] Name: BARBY CABALLERO Rep #: [id number] : 1990 Provider: Dr. 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 Date Name GA/Weeks Outcome Route Bth Weight Infant Gen Labor Lgth Anesthesia Del Locatn Provider FOB 07/18/21 Larry 40 live - full term 7lbs 7oz Male [facility] [place] Delivery Date: 07/18/21 Last Updated [...] transfer. declines NIPT had genetic testing at [facility] 11/05/24 -?-?-?-?-?-?-?-?-?-?-?-?- 12w 1d 260 lb [...] growth scans at 34 and 38 weeks. [facility] signed today. pelvic exam performed for tightening [...] Symptoms of Preeclampsia, Infant Feeding No , [place] [employer] Leave or Disability [...] Cosigner Signature: Date (if applicable) CC: ~ [facility]07-22-2025 Progress note Author Apple Lao [facility] Note Date/Time April 20, 2025 2:29 pm [facility] [address] [place] [address], [address] [place] [id number] OFFICE VISIT Date of Service: 04/20/25 MR#: [id number] Acct: [id number] Name: BARBY CABALLERO Rep #: [id number] : 1990 Provider: Dr. 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 Date Name GA/Weeks Outcome Route Bth Weight Infant Gen Labor Lgth Anesthesia Del Locatn Provider FOB 07/18/21 Larry 40 live - full term 7lbs 7oz Male [facility] [place] Delivery Date: 07/18/21 Last Updated [...] growth scans at 34 and 38 weeks. [facility] signed today JV- no lof, vaginal bleeding [...] and Symptoms of Preeclampsia, Feeding No , [place] [employer] Leave or Disability [...] POC Urinalysis 2 Dip (Clinic) Today 04/20/25 1010 <Electronically signed by Apple brown MD> Date _ Apple Lao MD Cosigner Signature: Date (if applicable) CC: ~ [facility] Work Phone: [phone]) 520-504407-17-2025 Radiology Diagnostic study note [facility] Imaging Services [address] [place] [address] OB Biophysical Prof W/O NST MR#: [id number] Acct: [id number] Name: BARBY CABALLERO Rep #: [id number] : 1990 F 34 From: Sloan Padron MD PCP: Dr. Steffen Eisenberg MD Status: REG CLI Study:OB Biophysical Prof W/O NST Date of Exa m: 04/15/25 Exam# [id number] Ordering Dr: Edel Rowley DO PROCEDURE: OB [...] NST IMPRESSION: Normal biophysical profile. Reading Location: [place] [address] CC: Dr. Steffen Eisenberg MD; Dr. Edel Bullock DO ~ Aerial Applicator Pilot: Signed [facility]07-09-2025 Progress [facility] [address], [address] [place] [address] OFFICE VISIT Date of Service: 04/07/25 MR#: [id number] Acct: [id number] Name: BARBY CABALLERO Rep #: [id number] : 1990 Provider: Dr. 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 [facility] signed today JV- no lof, vaginal bleeding , or dec fm. has growth scans at 34 and 38 weeks. [facility] signed today. pelvic exam performed for tightening [...] Shanita DO> Date _ Edel Bullock DO [facility] Signature: Date (if applicable) CC: ~ [id number] Progress [facility] [address] [place] [address], [address] [place] [address] OFFICE VISIT Date of Service: 03/26/25 MR#: [id number] Acct: [id number] Name: BABRY CABALLERO Rep #: [id number] : 1990 Provider: Dr. 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 Date Name GA/Weeks Outcome Route Bth Weight Gen Labor Lgth Anesthesia Del Locatn Provider FOB 07/18/21 Larry 40 live - full term 7lbs 7oz Male [facility] [place] Delivery Date: 07/18/21 Last Updated [...] transfer. declines NIPT had genetic testing at [facility] 11/05/24 -?-?-?-?-?-?-?-?-?-?-?-?- 12w 1d 260 lb [...] 2 Dip (Clinic) Today 03/26/25 1436 e Velde DO> Date _ Edel Bullock DO Cosignshira Signature: Date (if applicable) CC: ~ [facility]06-27-2025 Progress note Author Edel Diehl [facility] Note Date/Time March 26, 2025 2:36 pm [facility] [address] [place] [address], [address] [place] [address] OFFICE VISIT Date of Service: 03/26/25 MR#: [id number] Acct: [id number] Name: BARBY CABALLERO Rep #: [id number] : 1990 Provider: Dr. 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 Date Name GA/Weeks Outcome Route Bth Weight Gen Labor Lgth Anesthesia Del Locatn Provider FOB 07/18/21 Larry 40 live - full term 7lbs 7oz Male [facility] [place] Delivery Date: 07/18/21 Last Updated [...] Today 03/26/25 1436 <Electronically signed by Edel Vand e Velde DO> Date _ Edel Twan Diehl DO Cosigner Signature: Date (if applicable) CC: ~ [facility] Work Phone: 1(337) 640-919905-30-2025 Evaluation note* Diagnosis Onset Date Resolution Status Admit Date Depression with anxiety acute M 2024 8:34am GERD (gastroesophageal reflu x disease) acute February 26, 2025 8 :34am Infertility associated with anovulation acute February 26, [...] high-risk acute February 26, 2025 8 :34am AMA (advanced maternal age) multigravida 35+ resolved February 26, 2025 8:34am Conceived by in vitro fertilization resolved February 26, 2025 8 :34am Family history of genetic disorder resolved February 26, 2025 8 :34am H/O section resolved February 26, 2025 8:34am Depression with anxiety acute J 2024 2:11pm GERD (gastroesophageal reflu x disease) acute March 10, 2025 2:11pm Infertility associated [...] March 10, 2025 2:11pm Abnormal glucose affecting resolved March 10, 2025 2:11pm AMA (advanced maternal age) multigravida 35+ resolved March 10, 2025 2:11pm Conceived by in vitro fertilization resolved March 10, 2025 2:11pm Family history of genetic disorder resolved March 10, 2025 2:11pm H/O section resolved March 10, 2025 2:11pm Depression with anxiety acute J [facility] 2024 2:10pm GERD (gastroesophageal reflu x disease) acute March 26, 2025 2:10pm Infertility associated [...] March 26, 2025 2:10pm Abnormal glucose affecting resolved March 26, 2025 2:10pm AMA (advanced maternal age) multigravida 35+ resolved March 26, 2025 2:10pm Conceived by in vitro fertilization resolved March 26, 2025 2:10pm Family history of genetic disorder resolved March 26, 2025 2:10pm H/O section resolved March 26, 2025 2:10pm Depression with anxiety acute J [id number] 9:54am GERD (gastroesophageal reflu x disease) acute April 07, 2025 9 :54am Infertility associated with anovulation acute April 07, [...] 07, 2025 9 :54am Abnormal glucose affecting resolved April 07, 2025 9 :54am AMA (advanced maternal age) multigravida 35+ resolved April 07, 2025 9:54am Conceived by in vitro fertilization resolved April 07, 2025 9 :54am Family history of genetic disorder resolved April 07, 2025 9 :54am H/O section resolved April 07, 2025 9:54am Infertility associated with anovulation acute April 19, 2025 8:47am Marijuana use acute April 19, 2025 8:47am Obesity affecting acute April 19, 2025 8:47am acute April 19 8:47am Rh negative status during acute April 19, 2025 8:47am Sleep apnea acute April 19 8:47am Supervision of high-risk acute April 19, 2025 8:47am Abnormal glucose affecting resolved April 19, 2025 8:47am AMA (advanced maternal age) multigravida 35+ resolved April 19, 2025 8:47am Conceived by in vitro fertilization resolved April 19, 2025 8:47am Family history of genetic disorder resolved April 19, 2025 8:47am H/O section resolved April 19, 2025 8:47am Itching resolved April 19 8:47am H/O biophysical profil e with non-stress test deleted April 19, 2025 8:47am Depression with anxiety acute J [id number] 1:59pm GERD (gastroesophageal reflu x disease) acute April 20, 2025 1:59pm Infertility associated with anovulation acute April 20, 2025 1:59pm Marijuana use acute April 20, 2025 1:59pm Obesity affecting acute April 20, 2025 1:59pm PCOS (polycystic ovarian syndrome) acute April 20, 2025 1:59pm acute April 20 1:59pm Rh negative status during acute April 20, 2025 1:59pm Sleep apnea acute April 20 1:59pm Supervision of high-risk acute April 20, 2025 1:59pm Abnormal glucose affecting resolved April 20, 2025 1:59pm AMA (advanced maternal age) multigravida 35+ resolved April 20, 2025 1:59pm Conceived by in vitro fertilization resolved April 20, 2025 1:59pm Family history of genetic disorder resolved April 20, 2025 1:59pm H/O section resolved April 20, 2025 1:59pm Itching resolved April 20 1:59pm Depression with anxiety acute J [id number] 2:01pm GERD (gastroesophageal reflu x disease) acute April 28, 2025 2:01pm Infertility associated with anovulation acute April 28, 2025 2:01pm Marijuana use acute April 28, 2025 2:01pm Obesity affecting acute April 28, 2025 2:01pm PCOS (polycystic ovarian syndrome) acute April 28, 2025 2:01pm acute April 28 2:01pm Rh negative status during acute April 28, 2025 2:01pm Sleep apnea acute April 28 2:01pm Supervision of high-risk acute April 28, 2025 2:01pm Abnormal glucose affecting resolved April 28, 2025 2:01pm AMA (advanced maternal age) multigravida 35+ resolved April 28, 2025 2:01pm Conceived by in vitro fertilization resolved April 28, 2025 2:01pm Family history of genetic disorder resolved April 28, 2025 2:01pm H/O section resolved April 28, 2025 2:01pm Itching resolved April 28 2:01pm Depression with anxiety acute A ug2024 2:05pm GBS (group B Streptococcus carrier), +RV culture, currently acute May 06 025 2:05pm GERD (gastroesophageal reflu x disease) acute May 06, 2025 2:05pm Infertility associated with anovulation acute May 06, 2025 2:05pm Marijuana use acute May 06, 2025 2:05pm Obesity affecting acute May 06, 2025 2:05pm PCOS (polycystic ovarian syndrome) acute May 06, 2025 2:05pm acute May 06 2:05pm Rh negative status during acute May 06, 2025 2:05pm Sleep apnea acute May 06, 025 2:05pm Supervision of high-risk acute May 06, 2025 2:05pm Abnormal glucose affecting resolved May 06, 2025 2:05pm AMA (advanced maternal age) multigravida 35+ resolved May 06 2:05pm Conceived by in vitro fertilization resolved May 06, 2025 2:05pm Family history of genetic disorder resolved May 06, 2025 2:05pm H/O section resolved 2024 2:05pm Itching resolved May 06 2:05pm Depression with anxiety acute A ugust 2024 5:52am GBS (group B Streptococcus carrier), +RV culture, currently acute May 12, 2025 5:52am GERD (gastroesophageal reflu x disease) acute May 12 5:52am Infertility associated with anovulation acute May 12 5:52am Marijuana use acute April 5:52am Obesity affecting acute May 12, 2025 5:52am PCOS (polycystic ovarian syndrome) acute May 12 5:52am acute May 12, 2 025 5:52am Rh negative status during acute May 12 5:52am S/P acute April 5:52am Sleep apnea acute May 12, 2025 5:52am Supervision of high-risk acute May 12 5:52am Abnormal glucose affecting resolved May 12 5:52am AMA (advanced maternal age) multigravida 35+ resolved May 12 5:52am Conceived by in vitro fertilization resolved May 12 5:52am Family history of genetic disorder resolved May 12 5:52am H/O section resolved 2024 5:52am Itching resolved May 12, 2 025 5:52am Postoperative fever acute Aprus t 2024 7:36pm S/P acute April 7:36pm Soft tissue abscess acute Augus t 2024 7:36pm Subcutaneous abscess acute st 2024 7:36pm Tachycardia acute May 24, 2025 7:36pm [facility] Work Phone: 1(883) 479-728005-30-2025 [facility] [address] [place] [address], [address] [place] [address] OFFICE VISIT Date of Service: 02/26/25 MR#: [id number] Acct: [id number] Name: BARBY CABALLERO Rep #: [id number] : 1990 Provider: Dr. Frank Lao MD Age/Sex: 34/F Location: [facility] Status: Signed Intake Vital Signs 10/09/24 14:36 01/01/25 10:10 01/29/25 10:30 02/26/25 08:45 Height 5 ft 2 in 5 ft 2 in 5 ft 2 in 5 ft 2 in Weight: 262 lb 2 oz 261 lb 4 oz 264 lb 2 oz BMI 47.9 47.7 48.3 BP 125/82 H 114/81 H 102/66 Intake Visit Reasons: 28 WK OB/GLUCOSE *DOC ONLY* [employer] Required: No Is patient in pain?: No [...] 1 current occupational status: unemployed current occupation: [employer] current occupational exposures/hazards: No 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) pets and animals: cat(s) history of recent travel: Yes ([place] for IVF) out of state: Yes sexually [...] physical activity do you participate in: none landon/moravian: None seatbelt use: always do you feel safe at home: Yes additional social history: : [employer] (works from home) History 2 Elective abortions Hx Para 1 Spontaneous abortions Hx # Term Pregnancies 1 Ectopic pregnancies Hx # Pregnancies Multiple births # of living children 1 Past Pregnancies Del. Date Name GA/Weeks Outcome Route Bth Weight Gen Labor Lgth Anesthesia Del Locatn Provider FOB 07/18/21 Larry 40 live - full term 7lbs 7oz Male [facility] Delivery Date: 07/18/21 Last Updated [...] pain. JV- anatomy scan scheduled f or 3/31. no cramping or spotting. + round ligament [...] and Symptoms of Preeclampsia, Feeding No , [place] [employer] Medical Leave or Disability Forms Office Procedures Injections Is this a patient provided medication?: No Office Meds RhoGAM Ultra-Filtered PLUS 1,500 unit (300 mcg) intramuscular syringe Performing Provider: Apple Lao MD Performing Location: [facility] Administered by: Aziza Olson on 02/26/25 08:56 Dose Route Admin Location Dispensed Lot Number Expiration Date NDC Career Placement Specialist 1,500 unit IM right gluteal 1 ea [id number] 03/05/27 [id number] [employer] [place] [facility] Results POC Urinalysis 2 Dip (Clinic) [...] Cosigner Signature: Date (if applicable) CC: ~ [facility]05-02-2025 Evaluation note* Diagnosis Onset Date [...] 9 :54am Depression with anxiety acute J [facility] 2024 9:54am Family history of genetic disorder [...] 2025 2:05pm Sleep apnea acute May 06, 025 2:05pm Supervision of high-risk acute May 06, 2025 2:05pm [facility] Work Phone: 1(490) 461-902705-02-2025 Evaluation note* Diagnosis Onset Date Resolution Status [...] 2025 9 :54am Depression with anxiety acute gamaliel2024 9:54am Family history of genetic disorder [...] 28, 2025 2:01pm Depression with anxiety acute 2024 2:01pm Family history of genetic disorder [...] 2025 2:05pm Depression with anxiety acute A 2024 2:05pm Family history of genetic disorder [...] 2025 2:05pm Sleep apnea acute May 06, 025 2:05pm Supervision of high-risk acute May 06, 2025 2:05pm Abnormal glucose affecting acute May 12 5:52am AMA (advanced maternal age) multigravida 35+ acute May 12 5:52am Conceived by in vitro fertilization acute May 12 5:52am Depression with anxiety acute A 2024 5:52am Family history of genetic disorder [...] Supervision of high-risk acute May 12 5:52am [facility] Work Phone: 1(484) 638-626805-02-2025 Evaluation note* Diagnosis Onset Date Resolution Status Admit Date Depression with anxiety acute M ay 2024 10:15am GERD (gastroesophageal reflu x disease) acute January 29, 2025 10 :15am Infertility associated with anovulation acute January 29, [...] :15am AMA (advanced maternal age) multigravida 35+ resolved January 29, 2025 1 0:15am Conceived by in vitro fertilization resolved January 29, 2025 10 :15am Family history of genetic disorder resolved January 29, 2025 10 :15am H/O section resolved January 29, 2025 10:15am Depression with anxiety acute M ay 2024 8:34am GERD (gastroesophageal reflu x disease) acute February 26, 2025 8 :34am Infertility associated with anovulation acute February 26, [...] high-risk acute February 26, 2025 8 :34am AMA (advanced maternal age) multigravida 35+ resolved February 26, 2025 8:34am Conceived by in vitro fertilization resolved February 26, 2025 8 :34am Family history of genetic disorder resolved February 26, 2025 8 :34am H/O section resolved February 26, 2025 8:34am Depression with anxiety acute J une 2024 2:11pm GERD (gastroesophageal reflu x disease) acute March 10, 2025 2:11pm Infertility associated [...] March 10, 2025 2:11pm Abnormal glucose affecting resolved March 10, 2025 2:11pm AMA (advanced maternal age) multigravida 35+ resolved March 10, 2025 2:11pm Conceived by in vitro fertilization resolved March 10, 2025 2:11pm Family history of genetic disorder resolved March 10, 2025 2:11pm H/O section resolved March 10, 2025 2:11pm Depression with anxiety acute J [facility] 2024 2:10pm GERD (gastroesophageal reflu x disease) acute March 26, 2025 2:10pm Infertility associated [...] March 26, 2025 2:10pm Abnormal glucose affecting resolved March 26, 2025 2:10pm AMA (advanced maternal age) multigravida 35+ resolved March 26, 2025 2:10pm Conceived by in vitro fertilization resolved March 26, 2025 2:10pm Family history of genetic disorder resolved March 26, 2025 2:10pm H/O section resolved March 26, 2025 2:10pm Depression with anxiety acute [facility] 2024 9:54am GERD (gastroesophageal reflu x disease) acute April 07, 2025 9 :54am Infertility associated with anovulation acute April 07, [...] 07, 2025 9 :54am Abnormal glucose affecting resolved April 07, 2025 9 :54am AMA (advanced maternal age) multigravida 35+ resolved April 07, 2025 9:54am Conceived by in vitro fertilization resolved April 07, 2025 9 :54am Family history of genetic disorder resolved April 07, 2025 9 :54am H/O section resolved April 07, 2025 9:54am Infertility associated with anovulation acute April 19, 2025 8:47am Marijuana use acute April 19, 2025 8:47am Obesity affecting acute April 19, 2025 8:47am acute April 19 8:47am Rh negative status during acute April 19, 2025 8:47am Sleep apnea acute April 19 8:47am Supervision of high-risk acute April 19, 2025 8:47am Abnormal glucose affecting resolved April 19, 2025 8:47am AMA (advanced maternal age) multigravida 35+ resolved April 19, 2025 8:47am Conceived by in vitro fertilization resolved April 19, 2025 8:47am Family history of genetic disorder resolved April 19, 2025 8:47am H/O section resolved April 19, 2025 8:47am Itching resolved April 19 8:47am H/O biophysical profil e with non-stress test deleted April 19, 2025 8:47am Depression with anxiety acute J gamaliel 2024 1:59pm GERD (gastroesophageal reflu x disease) acute April 20, 2025 1:59pm Infertility associated with anovulation acute April 20, 2025 1:59pm Marijuana use acute April 20, 2025 1:59pm Obesity affecting acute April 20, 2025 1:59pm PCOS (polycystic ovarian syndrome) acute April 20, 2025 1:59pm acute April 20 1:59pm Rh negative status during acute April 20, 2025 1:59pm Sleep apnea acute April 20 1:59pm Supervision of high-risk acute April 20, 2025 1:59pm Abnormal glucose affecting resolved April 20, 2025 1:59pm AMA (advanced maternal age) multigravida 35+ resolved April 20, 2025 1:59pm Conceived by in vitro fertilization resolved April 20, 2025 1:59pm Family history of genetic disorder resolved April 20, 2025 1:59pm H/O section resolved April 20, 2025 1:59pm Itching resolved April 20 1:59pm Depression with anxiety acute J gamaliel2024 2:01pm GERD (gastroesophageal reflu x disease) acute April 28, 2025 2:01pm Infertility associated with anovulation acute April 28, 2025 2:01pm Marijuana use acute April 28, 2025 2:01pm Obesity affecting acute April 28, 2025 2:01pm PCOS (polycystic ovarian syndrome) acute April 28, 2025 2:01pm acute April 28 2:01pm Rh negative status during acute April 28, 2025 2:01pm Sleep apnea acute April 28 2:01pm Supervision of high-risk acute April 28, 2025 2:01pm Abnormal glucose affecting resolved April 28, 2025 2:01pm AMA (advanced maternal age) multigravida 35+ resolved April 28, 2025 2:01pm Conceived by in vitro fertilization resolved April 28, 2025 2:01pm Family history of genetic disorder resolved April 28, 2025 2:01pm H/O section resolved April 28, 2025 2:01pm Itching resolved April 28 2:01pm Depression with anxiety acute A ug2024 2:05pm GBS (group B Streptococcus carrier), +RV culture, currently acute May 06, 2 025 2:05pm GERD (gastroesophageal reflu x disease) acute May 06, 2025 2:05pm Infertility associated with anovulation acute May 06, 2025 2:05pm Marijuana use acute May 06, 2025 2:05pm Obesity affecting acute May 06, 2025 2:05pm PCOS (polycystic ovarian syndrome) acute May 06, 2025 2:05pm acute May 06 2:05pm Rh negative status during acute May 06, 2025 2:05pm Sleep apnea acute May 06, 025 2:05pm Supervision of high-risk acute May 06, 2025 2:05pm Abnormal glucose affecting resolved May 06, 2025 2:05pm AMA (advanced maternal age) multigravida 35+ resolved May 06 2:05pm Conceived by in vitro fertilization resolved May 06, 2025 2:05pm Family history of genetic disorder resolved May 06, 2025 2:05pm H/O section resolved 2024 2:05pm Itching resolved May 06 2:05pm Depression with anxiety acute A ugust 2024 5:52am GBS (group B Streptococcus carrier), +RV culture, currently acute May 12, 2025 5:52am GERD (gastroesophageal reflu x disease) acute May 12 5:52am Infertility associated with anovulation acute May 12 5:52am Marijuana use acute April 5:52am Obesity affecting acute May 12, 2025 5:52am PCOS (polycystic ovarian syndrome) acute May 12 5:52am acute May 12, 025 5:52am Rh negative status during acute May 12 5:52am S/P acute April 5:52am Sleep apnea acute May 12, 2025 5:52am Supervision of high-risk acute May 12 5:52am Abnormal glucose affecting resolved May 12 5:52am AMA (advanced maternal age) multigravida 35+ resolved May 12 5:52am Conceived by in vitro fertilization resolved May 12 5:52am Family history of genetic disorder resolved May 12 5:52am H/O section resolved 2024 5:52am Itching resolved May 12, 2 025 5:52am Postoperative fever acute t 2024 6:41pm S/P acute April 6:41pm Soft tissue abscess acute Augus t 2024 6:41pm Subcutaneous abscess acute Augu st 2024 6:41pm Tachycardia acute May 24, 2025 6:41pm [facility] Work Phone: 1(200) 170-612805-02-2025 Evaluation note* Diagnosis Onset Date Resolution Status Admit Date Depression with anxiety acute M 2024 10:15am GERD (gastroesophageal reflu x disease) acute January 29, 2025 10 :15am Infertility associated with anovulation acute January 29, [...] :15am AMA (advanced maternal age) multigravida 35+ resolved January 29, 2025 1 0:15am Conceived by in vitro fertilization resolved January 29, 2025 10 :15am Family history of genetic disorder resolved January 29, 2025 10 :15am H/O section resolved January 29, 2025 10:15am Depression with anxiety acute M ay 2024 8:34am GERD (gastroesophageal reflu x disease) acute February 26, 2025 8 :34am Infertility associated with anovulation acute February 26, [...] high-risk acute February 26, 2025 8 :34am AMA (advanced maternal age) multigravida 35+ resolved February 26, 2025 8:34am Conceived by in vitro fertilization resolved May 30th, 2025 8 :34am Family history of genetic disorder resolved February 26, 2025 8 :34am H/O section resolved February 26, 2025 8:34am Depression with anxiety acute J [facility] 2024 2:11pm GERD (gastroesophageal reflu x disease) acute March 10, 2025 2:11pm Infertility associated [...] March 10, 2025 2:11pm Abnormal glucose affecting resolved March 10, 2025 2:11pm AMA (advanced maternal age) multigravida 35+ resolved March 10, 2025 2:11pm Conceived by in vitro fertilization resolved March 10, 2025 2:11pm Family history of genetic disorder resolved March 10, 2025 2:11pm H/O section resolved March 10, 2025 2:11pm Depression with anxiety acute J [facility] 2024 2:10pm GERD (gastroesophageal reflu x disease) acute March 26, 2025 2:10pm Infertility associated [...] March 26, 2025 2:10pm Abnormal glucose affecting resolved March 26, 2025 2:10pm AMA (advanced maternal age) multigravida 35+ resolved March 26, 2025 2:10pm Conceived by in vitro fertilization resolved March 26, 2025 2:10pm Family history of genetic disorder resolved March 26, 2025 2:10pm H/O section resolved March 26, 2025 2:10pm Depression with anxiety acute J gamaliel2024 9:54am GERD (gastroesophageal reflu x disease) acute April 07, 2025 9 :54am Infertility associated with anovulation acute April 07, [...] 07, 2025 9 :54am Abnormal glucose affecting resolved April 07, 2025 9 :54am AMA (advanced maternal age) multigravida 35+ resolved April 07, 2025 9:54am Conceived by in vitro fertilization resolved April 07, 2025 9 :54am Family history of genetic disorder resolved April 07, 2025 9 :54am H/O section resolved April 07, 2025 9:54am Infertility associated with anovulation acute April 19, 2025 8:47am Marijuana use acute April 19, 2025 8:47am Obesity affecting acute April 19, 2025 8:47am acute April 19 8:47am Rh negative status during acute April 19, 2025 8:47am Sleep apnea acute April 19 8:47am Supervision of high-risk acute April 19, 2025 8:47am Abnormal glucose affecting resolved April 19, 2025 8:47am AMA (advanced maternal age) multigravida 35+ resolved April 19, 2025 8:47am Conceived by in vitro fertilization resolved April 19, 2025 8:47am Family history of genetic disorder resolved April 19, 2025 8:47am H/O section resolved April 19, 2025 8:47am Itching resolved April 19 8:47am H/O biophysical profil e with non-stress test deleted April 19, 2025 8:47am Depression with anxiety acute J gamaliel 2024 1:59pm GERD (gastroesophageal reflu x disease) acute April 20, 2025 1:59pm Infertility associated with anovulation acute April 20, 2025 1:59pm Marijuana use acute April 20, 2025 1:59pm Obesity affecting acute April 20, 2025 1:59pm PCOS (polycystic ovarian syndrome) acute April 20, 2025 1:59pm acute April 20 1:59pm Rh negative status during acute April 20, 2025 1:59pm Sleep apnea acute April 20 1:59pm Supervision of high-risk acute April 20, 2025 1:59pm Abnormal glucose affecting resolved April 20, 2025 1:59pm AMA (advanced maternal age) multigravida 35+ resolved April 20, 2025 1:59pm Conceived by in vitro fertilization resolved April 20, 2025 1:59pm Family history of genetic disorder resolved April 20, 2025 1:59pm H/O section resolved April 20, 2025 1:59pm Itching resolved April 20 1:59pm Depression with anxiety acute J gamaliel2024 2:01pm GERD (gastroesophageal reflu x disease) acute April 28, 2025 2:01pm Infertility associated with anovulation acute April 28, 2025 2:01pm Marijuana use acute April 28, 2025 2:01pm Obesity affecting acute April 28, 2025 2:01pm PCOS (polycystic ovarian syndrome) acute April 28, 2025 2:01pm acute April 28 2:01pm Rh negative status during acute April 28, 2025 2:01pm Sleep apnea acute April 28 2:01pm Supervision of high-risk acute April 28, 2025 2:01pm Abnormal glucose affecting resolved April 28, 2025 2:01pm AMA (advanced maternal age) multigravida 35+ resolved April 28, 2025 2:01pm Conceived by in vitro fertilization resolved April 28, 2025 2:01pm Family history of genetic disorder resolved April 28, 2025 2:01pm H/O section resolved April 28, 2025 2:01pm Itching resolved April 28 2:01pm Depression with anxiety acute A ug2024 2:05pm GBS (group B Streptococcus carrier), +RV culture, currently acute May 06 025 2:05pm GERD (gastroesophageal reflu x disease) acute May 06, 2025 2:05pm Infertility associated with anovulation acute May 06, 2025 2:05pm Marijuana use acute May 06, 2025 2:05pm Obesity affecting acute May 06, 2025 2:05pm PCOS (polycystic ovarian syndrome) acute May 06, 2025 2:05pm acute May 06 2:05pm Rh negative status during acute May 06, 2025 2:05pm Sleep apnea acute May 06, 025 2:05pm Supervision of high-risk acute May 06, 2025 2:05pm Abnormal glucose affecting resolved May 06, 2025 2:05pm AMA (advanced maternal age) multigravida 35+ resolved May 06 2:05pm Conceived by in vitro fertilization resolved May 06, 2025 2:05pm Family history of genetic disorder resolved May 06, 2025 2:05pm H/O section resolved 2024 2:05pm Itching resolved May 06 2:05pm Depression with anxiety acute A ugust 2024 5:52am GBS (group B Streptococcus carrier), +RV culture, currently acute May 12, 2025 5:52am GERD (gastroesophageal reflu x disease) acute May 12 5:52am Infertility associated with anovulation acute May 12 5:52am Marijuana use acute April 5:52am Obesity affecting acute May 12, 2025 5:52am PCOS (polycystic ovarian syndrome) acute May 12 5:52am acute May 12, 025 5:52am Rh negative status during acute May 12 5:52am S/P acute April 5:52am Sleep apnea acute May 12, 2025 5:52am Supervision of high-risk acute May 12 5:52am Abnormal glucose affecting resolved May 12 5:52am AMA (advanced maternal age) multigravida 35+ resolved May 12 5:52am Conceived by in vitro fertilization resolved May 12 5:52am Family history of genetic disorder resolved May 12 5:52am H/O section resolved 2024 5:52am Itching resolved May 12, 2 025 5:52am Postoperative fever acute Aprus t 2024 7:36pm S/P acute April 7:36pm Soft tissue abscess acute Augus t 2024 7:36pm Subcutaneous abscess acute Apru st 2024 7:36pm Tachycardia acute May 24, 2025 7:36pm [facility] Work Phone: 1(561) 837-744004-04-2025 Evaluation note* Diagnosis Onset Date Resolution Status [...] 9 :54am Depression with anxiety acute J [facility] 2024 9:54am Family history of genetic disorder [...] high-risk acute April 07, 2025 9 :54am [facility] Work Phone: 1(152) 459-824404-04-2025 Evaluation note* Diagnosis Onset Date Resolution Status [...] 2025 9 :54am Depression with anxiety acute gamaliel2024 9:54am Family history of genetic disorder [...] of high-risk acute April 20, 2025 1:59pm [facility] Work Phone: 1(563) 323-732904-04-2025 Evaluation note* Diagnosis Onset Date Resolution Status Admit Date AMA (advanced maternal age) multigravida 35+ acute January 01, 2025 10:03am Conceived by in vitro fertilization acute January 01, 2025 10:03am Depression with anxiety acute A pril 2024 10:03am Family history of genetic disorder acute January 01, 2025 10:03am GERD (gastroesophageal reflu x disease) acute January 01, 2025 10:03am H/O section acute Apri l , 2025 10:03am Infertility associated with anovulation acute January [...] 26, 2025 2:10pm Depression with anxiety acute [facility] 2024 2:10pm Family history of genetic disorder [...] 28, 2025 2:01pm Depression with anxiety acute 2024 2:01pm Family history of genetic disorder [...] of high-risk acute April 28, 2025 2:01pm [facility] Work Phone: 1(874) 897-124103-06-2025 Evaluation note* Diagnosis Onset Date Resolution Status Admit Date AMA (advanced maternal age) multigravida 35+ acute December 03, 2024 1:25pm Conceived by in vitro fertilization acute December 03, 2024 1:25pm Depression with anxiety acute M arch 2024 1:25pm Family history of genetic disorder acute December 03, 2024 1:25pm GERD (gastroesophageal reflu x disease) acute December 03, 2024 1:25pm H/O section acute [facility] 2024 1:25pm Infertility associated with anovulation acute [...] :15am Depression with anxiety acute M ay 2025 10:15am Family history of genetic disorder acute [...] high-risk acute February 26, 2025 8 :34am [facility] Work Phone: 1([phone]) 555-580803-06-2025 Evaluation note* Diagnosis Onset Date Resolution Status [...] of high-risk acute March 10, 2025 2:11pm [facility] Work Phone: 1([phone]) 361-682703-06-2025 Evaluation note* Diagnosis Onset Date Resolution Status [...] of high-risk acute March 26, 2025 2:10pm [facility] Work Phone: 1(171) 968-262002-06-2025 Evaluation note* Diagnosis Onset Date Resolution Status Admit Date AMA (advanced maternal age) multigravida 35+ acute November 05 2:22pm Conceived by in vitro fertilization acute November 05 2:22pm Depression with anxiety acute [facility] 2024 2:22pm Family history of genetic disorder acute November 05 2:22pm GERD (gastroesophageal reflu x disease) acute November 05 2:22pm H/O section acute 2024 2:22pm Infertility associated with anovulation acute November [...] 26, 2025 8 :34am Sleep apnea acute May 30th, 202 5 8:34am Supervision of high-risk acute February 26, 2025 8 :34am [facility] Work Phone: 1(998) 630-918102-04-2025 NoteHNO ID: [id number] Author: DEMARCUS MINER PA-C Service: ? Author Type: Physician Oral Surgery Physician Type: Progress Notes Filed: 11/03/2024 16:55 Note Text: Telemedicine Visit - Distance Health Virtual Visit Note Patient seen on [employer] Video Visit platform. Location of patient: [place] I have communicated my name and active licensure. The patient's identity and physical location were verified at the time of this visit. Either the patient or their legal fuels sales representative has been informed of the [...] person care - All questions answered [facility]02-04-2025 History of Present illness Narrative* Demarcus Miner PA-C - 11/03/2024 4:51 PM EST Telemedicine Visit - Distance Health Virtual Visit Note Patient seen on [employer] Video Visit platform. Location of patient: [place] I have communicated my name and active licensure. The patient's identity and physical location wereverified at the time of this visit. Either the patient or their legal fuels sales representative has been informed of the [...] person care - All questions answered Demarcus Bordonaro, PA-C [facility] * Telephone Encounter - Marta Del Valle MD - 07/29/2024 5:17 PM EDT Due for yearly follow up - must be seen to get additional re [facility]2024 Miscellaneous Notes* Telephone Encounter - Marta Del Valle MD - 07/29/2024 5:17 PM EDT Due for yearly follow up - must be seen to get additional re [facility] NoteHNO ID: [id number] Author: GINA SAHU APRN.[facility] Service: ? Author Type: Nurse Practitioner Type: [...] Patient agreeable to treatment plan. Gina Sahu APRN.[facility]04-14-2024 History of Present illness Narrative* Gina Sahu APRN.[facility] - 01/12/2024 11:06 AM EDT CC: Patient [...] Patient agreeable to treatment plan. Gina Sahu APRN.CERAM[employer] INSTRUCTOR documented in this encounterOur [facility]04-12-2023 History of Present illness Narrative* Lynne Saima - 01/09/2023 9:00 AM EDT Patient offered a medical autographer for sensitive exam. Pt declined [facility] History of Present illness Narrative* Maile [...] exam, wears glasses Advanced Directives Living Will [facility] care POA Code status Has both Got [...] . Physical Exam Exam conducted with a autographer present. Constitutional: General: She is not in [...] pumping but will send e consult for senior technical specialist to ensure no additional work up indicated. Normal breast exam, normal TFTs and prolactin [facility]2022 NoteSatisfactory For Evaluation; Endocervical/Transformation Zone Component Present.[facility] HospitalComment on above:Order Comment: Patient'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Performed By: #### THINP #### [facility] (DEFAULT) [address] [id number] History of Present illness Narrative* Faith Starkey [...] Exam in one year. documented [facility] Miscellaneous Notes* Addendum Note - Chris Whitney MA - 09/05/2022 1:30 PM ESTAddended by: CHRIS WHITNEY on: 09/05/2022 02:34 PM Modules accepted: Orders * Addendum Note - Faith Starkey MD - 09/05/2022 1:30 PM ESTAddended by: FAITH STARKEY on: 09/05/2022 03:03 PM Modules accepted: Orders documented in [facility]22 Note* Addendum Note - Chris Whitney MA - 09/05/2022 1:30 PM ESTAddended by: CHRIS WHITNEY on: 09/05/2022 02:34 PM Modules accepted: Orders [facility] Note* Addendum Note - Faith Starkey MD - 09/05/2022 1:30 PM ESTAddended by: FAITH STARKEY on: 09/05/2022 03:03 PM Modules accepted: Orders [facility] History of Present illness Narrative* Faith [...] Rh neg Posterior placenta 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 Objective: Assessment: 31w5d Plan: 1. Has US in 3 weeks 2. RTC 2-[address] [facility] Diagnosis Supervision of normal first , antepartum- Primary [facility] Diagnosis Well woman exam with routine gynecological exam- Primary Routine gynecological examination [facility] Diagnosis Well adult exam- Primary [...] full remission [facility] Diagnosis Breast pain, right Mastodynia [facility]* Diagnosis Onset Date Resolution Status Infertility associated with anovulation acute PCOS (polycystic ovarian syndrome) acute Encounter for routine gynecological examination noneactive PCOS (polycystic ovarian syndrome) acute [facility] Work Phone: Evaluation note* Diagnosis URI, acute- Primary Acute upper respiratory infections of unspecified site Acute otitis media, right Unspecified otitis media Acute cough [facility] Diagnosis Encounter for assisted reproductive fertility procedure cycle documented in this encounter [facility] Work Phone: Evaluation note* Diagnosis Encounter for assisted reproductive fertility procedure cycle documented in this encounter [facility] Work Phone: Evaluation note* Diagnosis Encounter for assisted reproductive fertility procedure cycle documented in this encounter [facility] Work Phone: Evaluation note* Diagnosis Encounter for assisted reproductive fertility procedure cycle documented in this encounter [facility] Work Phone: Evaluation note* Diagnosis Encounter for test, result positive (HHS-HCC) documented in this encounter [facility] Work Phone: Evaluation note* Diagnosis Encounter for test, result positive (HHS-HCC) documented in this encounter [facility] Work Phone: Evaluation note* Diagnosis Viral URI with cough- Primary Acute upper respiratory infections of unspecified site [facility] Author Edel Diehl [facility] Note Date/Time May 24, 2025 7: 22pm [facility] Medical Records Department [address] [place] [address] H&P 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 Steffen Eisenberg MD Status:ADM IN Location: [facility] [place] [facility] [place]286-8 HPI - General General Date of Admission: 05/24/25 HPI Narrative BARBY CABALLERO, is a 34 y/o , status post section on 05/12/25, who presents to [facility] ER with fever up to 102 at home. Here her Tmax was a 101. She was tachycardic upon presentation. CTA chest was negative for a PE, UA negative for UTI, CT abdomen shows a 15 cm seroma vs abscess vs blood clot of the ventralabdomen within the subcutaneous layer. She is exclusively pumping and states that her left breast excretes clotted blood and feels sore. [facility] Medical History (Updated 05/24/25 @ 19:[address] Edel Bullock DO) PCOS (polycystic ovarian syndrome) Infertility Depression with anxiety GERD (gastroesophageal reflux disease) Home Medications ?Medication ?Instructions ?Recorded ?Last Taken ?Type escitalopram oxalate 10 mg tablet 10 mg PO DAILY anxie ty/depression 07/20/24 05/23/25 Rx (Lexapro) #30 tabs docosahexaenoic acid 200 mg 200 mg PO DAILY #90 caps 07/28/24 05/23/25 Rx capsule ( DHA) famotidine 40 mg tablet (Pepcid) 40 mg PO DAILY indige stion #30 tabs 01/11/25 05/23/25 Rx breast pump #1 ea 01/29/25 Unknown Rx ibuprofen 800 mg tablet 800 mg PO Q8H PRN pain #30 t abs 05/12/25 05/24/25 Rx acetaminophen 500 mg capsule 1,000 mg PO Q6H PRN fever or pain 05/24/25 05/24/25 History Allergy/AdvReac Type Severity Reaction Status Date / Time No Known Allergies Allergy Verified 05/12/25 06:30 Family History Mother Hypertension Grandfather Heart disease Hypertension Diabetes Cancer Macular degeneration Grandmother Macular degeneration Surgical History (Updated 05/24/25 @ 18:[address] 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 Date Name GA/Weeks Outcome Route Bth Weight Gen Labor Lgth Anesthesia Del Locatn Provider FOB 07/18/21 Larry 40 live [facility]lbs [facility] - full term Male sp inal [facility] [place] Delivery Date: 07/18/21 Last Updated by: Aida Shields RN Induce d/t failure to progress naturally .. Slow progression of labor w/ decels .. Failed vacuum delivery into emergency csec Delivery Date: 05/12/25 Last Updated by: Aida Shields RN Repeat CS ROS Constitutional Constitutional: Reports fatigue, fever(s), headache(s) and poor appetite; Deniesbody ache(s), change in weight or excessive sweating Cardiovascular Cardiovascular: Reports leg edema; Denies abdominal pain, chest pain, diaphoresis or dizziness Respiratory/Chest Respiratory/Chest: Denies chest tightness, cough or dyspnea Gastrointestinal Gastrointestinal: Denies belching, bloating, change in bowel habits, constipation, cramping, diarrhea or hemorrhoids Genitourinary Genitourinary: Denies burning urination or difficulty urinating Musculoskeletal Musculoskeletal: Reports none Integumentary Integumentary: Reports other Details: reports bruising on abdomen and blisters around her incision Psychiatric Psychiatric: Denies anxiety, confusion or depression Hematologic/Lymphatic Hematologic/Lymphatic: Reports systems reviewed and no addt'l complaints, exceptas documented Vital Signs Vital Signs Vital Signs: 05/24/25 13:55 05/24/25 13:56 05/24/25 14:08 Temperature 101.2 F H 100.4 F H Temperature Source Oral Oral Pulse Rate 168 H 135 H Respiratory Rate 22 H 25 H Respiratory Effort Normal Respiratory Pattern Normal Blood Pressure 138/94 H 151/76 H Blood Pressure Mean 108 101 Pulse Ox 98 99 Oxygen Delivery Method Room Air Room Air 05/24/25 14:31 05/24/25 14:59 05/24/25 15:00 Temperature 100.1 F H 99.6 F H Temperature Source Oral Oral Pulse Rate 138 H 122 H Respiratory Rate 26 H 27 H Respiratory Effort Respiratory Pattern Blood Pressure 153/75 H 110/53 L Blood Pressure Mean 101 72 Pulse Ox 98 97 98 Oxygen Delivery Method Room Air Room Air Room Air 05/24/25 16:00 05/24/25 17:04 05/24/25 18:22 Temperature 99.6 F H 99.1 F 98.6 F Temperature Source Oral Oral Oral Pulse Rate 129 H 121 H 125 H Respiratory Rate 20 H 27 H 20 H Respiratory Effort Respiratory Pattern Blood Pressure 133/71 H 117/74 120/76 Blood Pressure Mean 91 88 90 Pulse Ox 99 97 99 Oxygen Delivery Method Room Air Room Air Room Air 05/24/25 18:25 Temperature 98.6 F Temperature Source Pulse Rate 125 H Respiratory Rate 20 H Respiratory Effort Respiratory Pattern Blood Pressure 120/76 Blood Pressure Mean 90 Pulse Ox 99 Oxygen Delivery Method Weight Weight: 261 lb 4.8 oz Body Mass Index (BMI) 47.7 Physical Exam Const alert, oriented x3 and no apparent distress HEENT normocephalic Eyes PERRL Neck full ROM Lymph Lymphatic: no lymphadenopathy noted Chest inspection of chest normal Breast/Axilla Palpation: other Other Details: bilateral breasts are engorged. noobvious abscesses or lesion. The left nipple is cracked and there is dried bloodpresent. Resp normal respiratory effort Effort and Inspection: able to speak in complete sentences and symmetric chest movement Cardio regular rhythm Cardio Narrative: tachycardic 110 Rate: tachycardic GI GI Narrative: morbidly obese abdomen with 2 areas of ecchymosis measuring approximately 10 cm each. On on right side of pannus and one midline. The incision is clean, dry, intact. There is some overlapping of the incision in the midline measuring 1 cm.There is no oozing or discharge of any kind. The blisters that were reported appear to be secondary to her dressing. Palpation: Negative for tender, guarding or rigid Narrative: some ecchymosis of the mons pubis. normal appearing external genitalia. Back/Spine no CVA tenderness Extremity General Extremity: edema bilateral lower extremity Details: mild Psych mental status grossly normal Appearance: grossly normal Speech: normal speech Labs Labs Labs: Blood Type B NEGATIVE Antibody Screen NEGATIVE Hct 29.4 % (37-47) L Hgb 9.9 g/dL (12.0-15.0) L Pap Smear Negative Syphilis Total Ab Nonreactive [...] Test COMMENT (.) Assessment & Plan (1) Postoperative fever: (2) Subcutaneous abscess: (3) S/P : (4) Soft tissue abscess: (5) Tachycardia: PLAN: Plan 1. Admit to MS3 and collect blood cultures x 2 2. start zosyn 3.375 iv q 6 hrs 3. tylenol for fever 4. oxycodone and Ibuprofen for pain 5. consult to interventional radiology in the am for possible drainage of fluid collection to send for culture 6. continue to pump breast milk and store in refrigerator 7. NPO after midnight. reg diet until then 05/24/251921 <Electronically signed by Edel Bullock DO> Cosigner Signature (if applicable): CC: Dr. Steffen Eisenberg MD; Dr. Edel Bullock DO~ Signed ADDENDUM by Dr. Edel Bullock DO on 05/24/25 at 1922 Multi Select Codes Visit Charges Visit Charges: 32848 Init Hosp L3 05/24/251921<Electronically signed by Edel Bullock DO> Cosigner Signature (if applicable): cc: Dr. Steffen Eisenberg MD; Dr. Edel Bullock DO ~* Signed [facility] Work Phone: Hospital Discharge instructionsAmbulatory Orders* Wound Care Location: None Selected [facility] Work Phone: Instructions* Attachments The following attachments cannot be sent through Care Everywhere. * Breast Health ([facility]) (Mauritanian) * Breast Self-Exam (Mauritanian) documented in this encounterOSU [facility] Author Apple Lao [facility] Note Date/Time February 26, 2025 9:38a m [facility] [address] [place] [address], [address] [place] [address] OFFICE VISIT Date of Service: 02/26/25 MR#: [id number] Acct: [id number] Name: BARBY CABALLERO Rep #: [id number] : 1990 Provider: Dr. 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 declines NIPT had genetic testing at [facility] 11/05/24 -?-?-?-?-?-?-?-?-?-?-?-?- 12w 1d 260 lb [...] Performing Provider: Apple Lao MD Performing Location: [facility] Administered by: Aziza Olson on 02/26/25 08:56 Dose Route Admin Location Dispensed Lot Number Expiration Date NDC Career Placement Specialist 1,500 unit IM right gluteal 1 ea [id number] 03/05/27 [id number] [employer] [facility] Results POC Urinalysis 2 Dip (Clinic) [...] POC Urinalysis 2 Dip (Clinic) Today 02/26/25 0904 <Electronically signed by Apple brown MD> Date _ Apple Lao MD Cosigner Signature: Date (if applicable) CC: ~ [facility] Work Phone: Progress note Author Edel Diehl [facility] Note Date/Time April 07, 2025 10:55 am [facility] [address] [place] [address], [address] [place] [address] OFFICE VISIT Date of Service: 04/07/25 MR#: [id number] Acct: [id number] Name: BARBY CABALLERO Rep #: [id number] : 1990 Provider: Dr. 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 Date Name GA/Weeks Outcome Route Bth Weight Gen Labor Lgth Anesthesia Del Locatn Provider FOB 07/18/21 Larry 40 live - full term 7lbs 7oz Male [facility] [place] Delivery Date: 07/18/21 Last Updated [...] Cosigner Signature: Date (if applicable) CC: ~ [facility] Work Phone: Rebugp for referral (narrative)No reason for referral information availableKaiser [facility] Center Work Phone: Reason for visit Narrative* Imaging (Routine) - Authorized Specialty Diagnoses / Procedures Referred By Contac t Referred To Contact Radiology Diagnoses Encounter for assisted reproductive fertility procedure cycle Procedures US PELVIS TRANSABDOMINAL WITH TRANSVAGINAL Levon Braxton MD [address] [place] [address] Phone: tel: fax: Referral ID Status Reason Start Date Expiration Date Visits Requested Visits Authorized [id number] Authorized Perform Procedure 4 08/13/2025 1 1 [facility] Work Phone: Reason for visit Narrative* Imaging (Routine) - Authorized Specialty Diagnoses / Procedures Referred By Contac t Referred To Contact Radiology Diagnoses Encounter for assisted reproductive fertility procedure cycle Procedures US PELVIS TRANSABDOMINAL WITH TRANSVAGINAL Levon Braxton MD [address] [place] [address] Phone: tel: fax: Referral ID Status Reason Start Date Expiration Date Visits Requested Visits Authorized [id number] Authorized Perform Procedure 4 08/14/2025 1 1 [facility] Work Phone: reason for visit Narrative* Imaging (Routine) - Authorized Specialty Diagnoses / Procedures Referred By Contac t Referred To Contact Radiology Diagnoses Encounter for test, result positive (HHS-HCC) Procedures US PELVIS OB TRANSABDOMINAL W TRANSVAGINAL UP TO 1ST TRIMESTER Levon Braxton MD [address] [place] [address] Phone: tel: fax: Referral ID Status Reason Start Date Expiration Date Visits Requested Visits Authorized [id number] Authorized Perform Procedure 4 09/15/2025 1 1 [facility] Work Phone: reason for visit Narrative* Imaging (Routine) - Authorized Specialty Diagnoses / Procedures Referred By Contac t Referred To Contact Radiology Diagnoses Encounter for test, result positive (HHS-HCC) Procedures US PELVIS OB TRANSABDOMINAL W TRANSVAGINAL UP TO 1ST TRIMESTER Levon Braxton MD [address] [place] [address] Phone: tel: fax: Referral ID Status Reason Start Date Expiration Date Visits Requested Visits Authorized [id number] Authorized Perform Procedure 4 09/25/2025 1 1 [facility] Work Phone: History of Present Illness * Janes Gutiérrez MD - 08/20/2018 9:07 AM EST Formatting of this note may be different from the original. [facility] [place] [address] [place] [id number] Hematology and Oncology Progress Note Patient Name: Barby Caballero MR #: [id number] : 1990 Date of Service: 08/20/18 Clinician: Janes Gutiérrez MD DIAGNOSIS Leukocytosis, etiology unknown. Dictation on: 08/20/2018 9:09 AM by: JANES GUTIÉRREZ [[id number]] History of Present Illness: Ms. Barby Caballero [...] bowel disease or arthritis. 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 For some reason, her CRP has been high over the last year. By reviewing her chart, she had leukocytosis for almost a year now. She is not on any steroid product. Dictation on: 08/20/2018 9:36 AM by: JANES GUTIÉRREZ [[id number]] Allergies Allergen Reactions Amoxicillin Diarrhea and GI [...] with patient. Assessment and Plan: A 27-year-old [facility] female with no chronic medical illness presented with leukocytosisand mild thrombocytosis. The etiology is unknown. Dictation on: 08/20/2018 9:37 AM by: JANES GUTIÉRREZ [[id number]] Orders Placed This Encounter CBC and Differential Janes Gutiérrez MD CC: Marta Del Valle MD in this encounter* Janes Gutiérrez MD - 01/22/2020 1:48 PM EDT [facility] [place] [address] [place] [id number] Hematology and Oncology Progress Note Patient Name: Barby Caballero MR #: [id number] : 1990 Date of Service: 02/18/2019 Clinician: [...] bowel disease or arthritis. 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 For some reason, her CRP has been [...] back negative. She is clinically asymptomatic. 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 CBC stable with WBC 5.15, Hgb 13.5 [...] file Gets together: Not on file Attends baptist service: Not on file Active member of [...] Skin Lesion Additional comments: Left abdomen since chainstitch binder unchanged Last edited by Will Prabhakar MD [...] - 07/27/2020 10:40 AM EDT Patient Name: [facility] Location: Barby Caballero [address] [place] [address] Date Of : Date Of Visit: 1990 07/27/2020 MRN# Provider: [id number] Marli Thompson PA-C Chief Complaint Patient presents [...] . famotidine (PEPCID) 40 MG tablet vit 68-mpfw-vllxd-dha ( + DHA) 28 mg iron- 975 [...] go immediately to ED for further evaluation [facility] COVID-19 Post-swabbing Instructions We will do our best to update you as soon as we receive your test results, but if we had to send your test to be run at the lab, you may see the results on MyChart or receive a call from before we are able to contact you. [...] results. - If you have an active [employer] account, and your COVID-19 test is negative (not detected), then you will be notified through your [employer] account. You should call the urgent care if you have any further questions. - If your COVID-19 test is positive (detected), you will receive a phone call to discuss your results and answer any questions you might have at that time. Please make sure [employer] has your updated phone number so we can contact you. [facility] will notify the [facility] of any positive results to comply [...] and warm water and/or alcohol based hand spa therapist, scrubbing your hands for at least 20 [...] Other COVID Questions? CDC - https://www.cdc.gov/coronavirus/2019-ncov/index.html - https://www.cdc.gov/coronavirus/2019-ncov/ow-dzp-azp-sick/quarantine.html [place] Department [facility] - Website: https://coronavirus.[place].gov/wps/portal/gov/covid-19/home - Hotline: 619-8-EVU-ODH (028-028-6384) [employer]: https://blog.Buxfer.Bandtastic/series/wykxx-70-gcinaooeqje-toolkit/ documented in this encounter* Janes Gutiérrez MD - 08/19/2019 11:05 AM EST [facility] [place] [address] [facility] [address] Hematology and Oncology Progress Note Patient Name: Barby Cbaallero MR #: [id number] : 1990 Date of Service: 08/19/19 Clinician: [...] bowel disease or arthritis. 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 For some reason, her CRP has been [...] days. No fever or chills. 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 Dictation on: 08/19/2019 11:07 AM by: JANES GUTIÉRREZ [[id number]] Allergies Allergen Reactions Amoxicillin Diarrhea and GI [...] file Gets together: Not on file Attends baptist service: Not on file Active member of [...] on: 08/19/2019 11:08 AM by: JANES GUTIÉRREZ [[id number]] Orders Placed This Encounter famotidine (PEPCID) 40 [...] sent through Care Everywhere. * Abdominal Pain (Mauritanian) documented in this encounter* Instructions* Laurent Duque MD - 03/19/2019 Continue taking your home medications as prescribed. Follow-up with your family doctor first available appointment. Return to the emergency room for any worsening symptoms or concerns * Attachments The following attachments cannot be sent through Care Everywhere. 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 No November 10, 2024 8:21pm Advance Directive Response Recorded Date/ Time Do you have a Healthcare Power of Jewelry Casting Model Maker? unsu re May 12, 2025 6:17am Advance Directive Response Recorded Date/ Time Do you have a Healthcare Power of Jewelry Casting Model Maker? unsu re May 12, 2025 6:17am Do you have a Healthcare Power of Jewelry Casting Model Maker? Yes May 24, 2025 2:08pm Advance Directive Response Recorded Date/ Time Do you have a Healthcare Power of Jewelry Casting Model Maker? unsu re May 12, 2025 6:17am Do you have a Healthcare Power of Jewelry Casting Model Maker? Yes May 24, 2025 8:14pm Summary Purpose Family History Relationship Condition Age at Onset Recorded Date/T sherri mother Hypertension Unknown grandfather Cardiac disease Unknown Hypertension Unknown Diabetes mellitus Unknown Malignant neoplasm Unknown Macular degeneration Unknown grandmother Macular degeneration Unknown Instructions * Patient Instructions* Sandie Tyler MA - 08/23/2020 9:02 AM EST Effective 10/14/2019, all [employer] users will be automatically enrolled in paperless billing in an effort to save our environment by eliminating waste & reduce healthcare costs. A monthly notification will be sent to your e-mail address on file indicating you have a new billing statement available in [employer]. If you prefer to receive paper statements, log into [employer] at [employer] to update your e-mail, text and mail preferences (opting out of paperless billing). Please direct further questions to Customer Service at [phone] or [email or web address]. documented in this encounter* Patient Instructions* Marli [...] go immediately to ED for further evaluation [facility] COVID-19 Post-swabbing Instructions We will do our best to update you as soon as we receive your test results, but if we had to send your test to be run at the lab, you may see the results on MyChart or receive a call from before we are able to contact you. [...] results. - If you have an active [employer] account, and your COVID-19 test is negative (not detected), then you will be notified through your [employer] account. You should call the urgent care if you have any further questions. - If your COVID-19 test is positive (detected), you will receive a phone call to discuss your results and answer any questions you might have at that time. Please make sure [facility] has your updated phone number so we can contact you. [facility] will notify the [facility] of any positive results to comply [...] and warm water and/or alcohol based hand spa therapist, scrubbing your hands for at least 20 [...] Other COVID Questions? CDC - https://www.cdc.gov/coronavirus/2019-ncov/index.html - https://www.cdc.gov/coronavirus/2019-ncov/dp-krz-xne-sick/quarantine.html [facility] - Website: https://coronavirus.[place].gov/wps/portal/gov/covid-19/home - Hotline: 436-8-ZKP-ODH (600-776-1533) [facility]: [email or web address] documented in this encounter Reason for Referral Specialty Diagnoses / Procedures Referred By Contdanielle t Referred To Contact Diagnoses Prolonged Marta Del Valle MD [address] [place] [address] Referral ID Status Reason Start Date Expiration Date V isits Requested Visits Authorized [id number] New Request 09/27/2022 10/22/2023 1 1 Specialty Diagnoses / Procedures Referred By Contac t Referred To Contact Radiology Diagnoses Encounter for assisted reproductive fertility procedure cycle Procedures US PELVIS TRANSABDOMINAL WITH TRANSVAGINAL US pelvis transvaginal Levon Braxton MD [address] [place] [address] Referral ID Status Reason Start Date Expiration Date Visits Requested Visits Authorized [id number] Pending Review Perform Procedure 06/11/2024 06/11/2025 1 1 Specialty Diagnoses / Procedures Referred By Contac t Referred To Contact Radiology Diagnoses Encounter for assisted reproductive fertility procedure cycle Procedures GERRY US Pelvis Limited Follicles - Follicle Studies Performed Levon Braxton MD [address] [place] [address] Referral ID Status Reason Start Date Expiration Date Visits Requested Visits Authorized [id number] Authorized Perform Procedure 06/19/2024 06/19/2025 1 1 Specialty Diagnoses / Procedures Referred By Jorgeac t Referred To Contact Radiology Diagnoses Encounter for assisted reproductive fertility procedure cycle Procedures US PELVIS TRANSABDOMINAL WITH TRANSVAGINAL Levon Braxton MD [address] [place] [address] Referral ID Status Reason Start Date Expiration Date Visits Requested Visits Authorized [id number] Authorized Perform Procedure 06/15/2024 06/15/2025 1 1 Referral ID Status Reason Start Date Expiration Date Visits Requested Visits Authorized [id number] Authorized Perform Procedure 06/22/2024 06/22/2025 1 1 Referral ID Status Reason Start Date Expiration Date Visits Requested Visits Authorized [id number] Authorized Perform Procedure 06/15/2024 06/15/2025 1 1 Referral ID Status Reason Start Date Expiration Date Visits Requested Visits Authorized [id number] Authorized Perform Procedure 06/24/2024 06/24/2025 1 1 Referral ID Status Reason Start Date Expiration Date Visits Requested Visits Authorized [id number] Authorized Perform Procedure 06/15/2024 06/15/2025 1 1 Chief Complaint and Reason for Visit 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 Reason for Visit Infertility associat [...] 2024 2:22pm Conceived by in vitro fertilization [facility]2024 2:22pm Depression with anxiety November 05 2:22pm Family history of genetic disorder [facility]2024 2:22pm GERD (gastroesophageal reflux disease) [facility] 2024 2:22pm H/O section November 05, 2024 2:22pm Infertility associated with anovulation November 05, 2024 2:22pm Marijuana use November 05, 2024 2 :22pm Obesity affecting October 2:22pm PCOS (polycystic ovarian syndrome) [facility]2024 2:22pm November 05, 2024 2 :22pm Rh negative status during 2024 2:22pm Sleep apnea November 05, 2024 2 :22pm Supervision of high-risk [facility]2024 2:22pm AMA (advanced maternal age) multigravida 35+ December 03, 2024 1:25pm Conceived by in vitro fertilization [facility] 2024 1:25pm Depression with anxiety December 03, 2024 1:25pm Family history of genetic disorder December 03, 2024 1:25pm GERD (gastroesophageal reflux disease) [facility] 2024 1:25pm H/O section December 03, [...] 10, 2025 2:11pm GERD (gastroesophageal reflux disease) [facility] 2024 2:11pm H/O section March 10, 2025 [...] 20, 2025 1:59 pm Obesity affecting April 20 1:59pm PCOS (polycystic ovarian syndrome) April 20, [...] 2025 9:54am GERD (gastroesophageal reflux disease) J [facility] 2024 9:54am H/O section April 07, 2025 [...] 2025 2:01 pm Obesity affecting April 28, 2:01pm PCOS (polycystic ovarian syndrome) April 28, [...] 2025 9:54am GERD (gastroesophageal reflux disease) J [facility] 2024 9:54am H/O section April 07, 2025 [...] m 28 WK OB/GLUCOSE *DOC ONLY* February 26, 8:34am SCREENING FOR DIABETES MELLITUS February 6:51am [...] 10, 2025 2:11pm GERD (gastroesophageal reflux disease) [facility] 2024 2:11pm H/O section March 10, 2025 [...] 19, 2025 8:47 am Supervision of high-risk Mireya 21st, 2025 8:47am H/O biophysical profile with non-s [...] 28, 2025 2:01pm GERD (gastroesophageal reflux disease) [facility] 2024 2:01pm H/O section April 28, 2025 [...] April 28, 2025 2:01pm Abnormal glucose affecting Aug ust 7th, 2025 2:05pm AMA (advanced maternal age) multigravida [...] 2025 5:52am Conceived by in vitro fertilization 2024 5:52am Depression with anxiety May 12 5:52am Family history of genetic disorder [facility] 2024 5:52am GBS (group B Streptococcus c [...] 2025 5: 52am Rh negative status during [facility] 2024 5:52am S/P May 12, 2025 5: 52am Sleep apnea May 12, 2025 5: 52am Supervision of high-risk [facility] 2024 5:52am Chief Complaint Admit Date 24 WK OB [...] 8:28am C SECTION/DELIVERED C SECTION April 8:40am SOFT TISSUE ABSCESS STATUS POST CSECTION May 24, 2025 6:41pm SOFT TISSUE ABSCESS STATUS POST CSECTION May 24, 2025 7:05pm Reason for Visit Admit Date Depression with anxiety January 29, 2025 10 :15am GERD (gastroesophageal reflux disease) M ay 2024 10:15am Infertility associated with anovulation January 29, 2025 10:15am Marijuana use January 29, 2025 10:15a m Obesity affecting January 29 10:15am PCOS (polycystic ovarian syndrome) January 292024 10:15am January 29, 2025 10:15a m Rh negative status during January 29, 2025 10:15am Sleep apnea January 29, 2025 10:15a m Supervision of high-risk January 292024 10:15am AMA (advanced maternal age) multigravida 35+ January 29, 2025 10:15am Conceived by in vitro fertilization January 29, 2025 10:15am Family history of genetic disorder January 292024 10:15am H/O section January 29, 2025 10:15 am Depression with anxiety February 26, 2025 8 :34am GERD (gastroesophageal reflux disease) M ay 2024 8:34am Infertility associated with anovulation February 26, 2025 8:34am Marijuana use February 26, 2025 8:34a m Obesity affecting February 26 8:34am PCOS (polycystic ovarian syndrome) January 302024 8:34am February 26, 2025 8:34a m Rh negative status during February 26, 2025 8:34am Sleep apnea February 26, 2025 8:34a m Supervision of high-risk January 302024 8:34am AMA (advanced maternal age) multigravida 35+ February 26, 2025 8:34am Conceived by in vitro fertilization February 26, 2025 8:34am Family history of genetic disorder January 302024 8:34am H/O section February 26, 2025 8:34 am Depression with anxiety March 10, 2025 2:11pm GERD (gastroesophageal reflux disease) J une 2024 2:11pm Infertility associated with anovulation March 10, 2025 2:11pm Marijuana use March 10, 2025 2:11 pm Obesity affecting March 10 025 2:11pm PCOS (polycystic ovarian syndrome) March 10, 2025 2:11pm March 10, 2025 2:11 pm Rh negative status during March 10, 2025 2:11pm Sleep apnea March 10, 2025 2:11 pm Supervision of high-risk March 10, 2025 2:11pm Abnormal glucose affecting Teo 2024 2:11pm AMA (advanced maternal age) multigravida 35+ March 10, 2025 2:11pm Conceived by in vitro fertilization March 10, 2025 2:11pm Family history of genetic disorder March 10, 2025 2:11pm H/O section March 10, 2025 2:1 1pm Depression with anxiety March 26, 2025 2:10pm GERD (gastroesophageal reflux disease) J une 2024 2:10pm Infertility associated with anovulation March 26, 2025 2:10pm Marijuana use March 26, 2025 2:10 pm Obesity affecting March 26, 2:10pm PCOS (polycystic ovarian syndrome) March 26, 2025 2:10pm March 26, 2025 2:10 pm Rh negative status during March 26, 2025 2:10pm Sleep apnea March 26, 2025 2:10 pm Supervision of high-risk March 26, 2025 2:10pm Abnormal glucose affecting Teo e 2024 2:10pm AMA (advanced maternal age) multigravida 35+ March 26, 2025 2:10pm Conceived by in vitro fertilization March 26, 2025 2:10pm Family history of genetic disorder March 26, 2025 2:10pm H/O section March 26, 2025 2:1 0pm Depression with anxiety April 07, 2025 9 :54am GERD (gastroesophageal reflux disease) J [facility] 2024 9:54am Infertility associated with anovulation April 07, 2025 9:54am Marijuana use April 07, 2025 9:54a m Obesity affecting April 07 9:54am PCOS (polycystic ovarian syndrome) April 07, 2025 9:54am April 07, 2025 9:54a m Rh negative status during April 07, 2025 9:54am Sleep apnea April 07, 2025 9:54a m Supervision of high-risk April 07, 2025 9:54am Abnormal glucose affecting Pablo 2024 9:54am AMA (advanced maternal age) multigravida 35+ April 07, 2025 9:54am Conceived by in vitro fertilization April 07, 2025 9:54am Family history of genetic disorder April 07, 2025 9:54am H/O section April 07, 2025 9:54 am Infertility associated with anovulation April 19, 2025 8:47am Marijuana use April 19, 2025 8:47 am Obesity affecting April 19 025 8:47am April 19, 2025 8:47 am Rh negative status during April 19, 2025 8:47am Sleep apnea April 19, 2025 8:47 am Supervision of high-risk April 19, 2025 8:47am Abnormal glucose affecting Mar 8:47am AMA (advanced maternal age) multigravida 35+ April 19, 2025 8:47am Conceived by in vitro fertilization April 19, 2025 8:47am Family history of genetic disorder April 19, 2025 8:47am H/O section April 19, 2025 8:4 7am Itching April 19, 2025 8:47 am H/O biophysical profile with non-s tress test April 19, 2025 8:47am Depression with anxiety April 20, 2025 1:59pm GERD (gastroesophageal reflux disease) J [facility] 2024 1:59pm Infertility associated with anovulation April 20, 2025 1:59pm Marijuana use April 20, 2025 1:59 pm Obesity affecting April 20 025 1:59pm PCOS (polycystic ovarian syndrome) April 20, 2025 1:59pm April 20, 2025 1:59 pm Rh negative status during April 20, 2025 1:59pm Sleep apnea April 20, 2025 1:59 pm Supervision of high-risk April 20, 2025 1:59pm Abnormal glucose affecting Mar 1:59pm AMA (advanced maternal age) multigravida 35+ April 20, 2025 1:59pm Conceived by in vitro fertilization April 20, 2025 1:59pm Family history of genetic disorder April 20, 2025 1:59pm H/O section April 20, 2025 1:5 9pm Itching April 20, 2025 1:59 pm Depression with anxiety April 28, 2025 2:01pm GERD (gastroesophageal reflux disease) J [facility] 2024 2:01pm Infertility associated with anovulation April 28, 2025 2:01pm Marijuana use April 28, 2025 2:01 pm Obesity affecting April 28, 025 2:01pm PCOS (polycystic ovarian syndrome) April 28, 2025 2:01pm April 28, 2025 2:01 pm Rh negative status during April 28, 2025 2:01pm Sleep apnea April 28, 2025 2:01 pm Supervision of high-risk April 28, 2025 2:01pm Abnormal glucose affecting Mar 2:01pm AMA (advanced maternal age) multigravida 35+ April 28, 2025 2:01pm Conceived by in vitro fertilization April 28, 2025 2:01pm Family history of genetic disorder April 28, 2025 2:01pm H/O section April 28, 2025 2:0 1pm Itching April 28, 2025 2:01 pm Depression with anxiety May 06, 2025 2:05pm GBS (group B Streptococcus c arrier), +RV culture, currently May 06, 2025 2:05pm GERD (gastroesophageal reflux disease) A [facility] 2024 2:05pm Infertility associated with anovulation May 06, 2025 2:05pm Marijuana use May 06, 2025 2:0 5pm Obesity affecting May 06, 2025 2:05pm PCOS (polycystic ovarian syndrome) [facility] 2024 2:05pm May 06, 2025 2:0 5pm Rh negative status during 2024 2:05pm Sleep apnea May 06, 2025 2:0 5pm Supervision of high-risk 2024 2:05pm Abnormal glucose affecting Apr 2:05pm AMA (advanced maternal age) multigravida 35+ May 06, 2025 2:05pm Conceived by in vitro fertilization 2024 2:05pm Family history of genetic disorder [facility] 2024 2:05pm H/O section May 06, 2025 2: 05pm Itching May 06, 2025 2:0 5pm Depression with anxiety May 12 5:52am GBS (group B Streptococcus c arrier), +RV culture, currently May 12, 2025 5:52am GERD (gastroesophageal reflux disease) A [facility] 2024 5:52am Infertility associated with anovulation May 12, 2025 5:52am Marijuana use [place] 13th, 2025 5: 52am Obesity affecting May 12, 2025 5:52am PCOS (polycystic ovarian syndrome) [facility] 2024 5:52am May 12, 2025 5: 52am Rh negative status during [facility] 2024 5:52am S/P May 12, 2025 5: 52am Sleep apnea May 12, 2025 5: 52am Supervision of high-risk [facility] 2024 5:52am Abnormal glucose affecting Aug us2024 5:52am AMA (advanced maternal age) multigravida 35+ May 12, 2025 5:52am Conceived by in vitro fertilization [facility] 2024 5:52am Family history of genetic disorder [facility] 2024 5:52am H/O section May 12, 2025 5 :52am Itching May 12, 2025 5: 52am Postoperative fever May 24, 2025 6: 41pm S/P May 24, 2025 6: 41pm Soft tissue abscess May 24, 2025 6: 41pm Subcutaneous abscess May 24, 2025 6 :41pm Tachycardia May 24, 2025 6: 41pm Chief Complaint Admit Date 24 WK OB [...] 8:28am C SECTION/DELIVERED C SECTION April 8:40am SOFT TISSUE ABSCESS STATUS POST CSECTION May 24, 2025 7:05pm SOFT TISSUE ABSCESS STATUS POST CSECTION May 24, 2025 7:36pm SOFT TISSUE ABSCESS STATUS POST CSECTION May 25, 2025 7:40am SOFT TISSUE ABSCESS STATUS POST CSECTION May 26, 2025 8:18am SOFT TISSUE ABSCESS STATUS POST CSECTION May 27, 2025 12:38am SOFT TISSUE ABSCESS STATUS POST CSECTION May 27, 2025 7:30am SOFT TISSUE ABSCESS STATUS POST CSECTION May 28, 2025 7:51am SOFT TISSUE ABSCESS STATUS POST CSECTION May 28, 2025 11:44am Reason for Visit Admit Date Depression with anxiety January 29, 2025 10 :15am GERD (gastroesophageal reflux disease) M ay 2024 10:15am Infertility associated with anovulation January 29, 2025 10:15am Marijuana use January 29, 2025 10:15a m Obesity affecting January 29 10:15am PCOS (polycystic ovarian syndrome) January 292024 10:15am January 29, 2025 10:15a m Rh negative status during January 29, 2025 10:15am Sleep apnea January 29, 2025 10:15a m Supervision of high-risk January 292024 10:15am AMA (advanced maternal age) multigravida 35+ January 29, 2025 10:15am Conceived by in vitro fertilization January 29, 2025 10:15am Family history of genetic disorder January 292024 10:15am H/O section January 29, 2025 10:15 am Depression with anxiety February 26, 2025 8 :34am GERD (gastroesophageal reflux disease) M ay 2024 8:34am Infertility associated with anovulation February 26, 2025 8:34am Marijuana use February 26, 2025 8:34a m Obesity affecting February 26 8:34am PCOS (polycystic ovarian syndrome) January 302024 8:34am February 26, 2025 8:34a m Rh negative status during February 26, 2025 8:34am Sleep apnea February 26, 2025 8:34a m Supervision of high-risk January 302024 8:34am AMA (advanced maternal age) multigravida 35+ February 26, 2025 8:34am Conceived by in vitro fertilization February 26, 2025 8:34am Family history of genetic disorder January 302024 8:34am H/O section February 26, 2025 8:34 am Depression with anxiety March 10, 2025 2:11pm GERD (gastroesophageal reflux disease) J [facility] 2024 2:11pm Infertility associated with anovulation March 10, 2025 2:11pm Marijuana use March 10, 2025 2:11 pm Obesity affecting March 10, 2 025 2:11pm PCOS (polycystic ovarian syndrome) March 10, 2025 2:11pm March 10, 2025 2:11 pm Rh negative status during March 10, 2025 2:11pm Sleep apnea March 10, 2025 2:11 pm Supervision of high-risk March 10, 2025 2:11pm Abnormal glucose affecting Teo e 2024 2:11pm AMA (advanced maternal age) multigravida 35+ March 10, 2025 2:11pm Conceived by in vitro fertilization March 10, 2025 2:11pm Family history of genetic disorder March 10, 2025 2:11pm H/O section March 10, 2025 2:1 1pm Depression with anxiety March 26, 2025 2:10pm GERD (gastroesophageal reflux disease) J [facility] 2024 2:10pm Infertility associated with anovulation March 26, 2025 2:10pm Marijuana use March 26, 2025 2:10 pm Obesity affecting March 26, 2 025 2:10pm PCOS (polycystic ovarian syndrome) March 26, 2025 2:10pm March 26, 2025 2:10 pm Rh negative status during March 26, 2025 2:10pm Sleep apnea March 26, 2025 2:10 pm Supervision of high-risk March 26, 2025 2:10pm Abnormal glucose affecting Teo e 2024 2:10pm AMA (advanced maternal age) multigravida 35+ March 26, 2025 2:10pm Conceived by in vitro fertilization March 26, 2025 2:10pm Family history of genetic disorder March 26, 2025 2:10pm H/O section March 26, 2025 2:1 0pm Depression with anxiety April 07, 2025 9 :54am GERD (gastroesophageal reflux disease) J [facility] 2024 9:54am Infertility associated with anovulation April 07, 2025 9:54am Marijuana use April 07, 2025 9:54a m Obesity affecting April 07 9:54am PCOS (polycystic ovarian syndrome) April 07, 2025 9:54am April 07, 2025 9:54a m Rh negative status during April 07, 2025 9:54am Sleep apnea April 07, 2025 9:54a m Supervision of high-risk April 07, 2025 9:54am Abnormal glucose affecting Mar 9:54am AMA (advanced maternal age) multigravida 35+ April 07, 2025 9:54am Conceived by in vitro fertilization April 07, 2025 9:54am Family history of genetic disorder April 07, 2025 9:54am H/O section April 07, 2025 9:54 am Infertility associated with anovulation April 19, 2025 8:47am Marijuana use April 19, 2025 8:47 am Obesity affecting April 19, 025 8:47am April 19, 2025 8:47 am Rh negative status during April 19, 2025 8:47am Sleep apnea April 19, 2025 8:47 am Supervision of high-risk April 19, 2025 8:47am Abnormal glucose affecting Mar 8:47am AMA (advanced maternal age) multigravida 35+ April 19, 2025 8:47am Conceived by in vitro fertilization April 19, 2025 8:47am Family history of genetic disorder April 19, 2025 8:47am H/O section April 19, 2025 8:4 7am Itching April 19, 2025 8:47 am H/O biophysical profile with non-s tress test April 19, 2025 8:47am Depression with anxiety April 20, 2025 1:59pm GERD (gastroesophageal reflux disease) J [facility] 2024 1:59pm Infertility associated with anovulation April 20, 2025 1:59pm Marijuana use April 20, 2025 1:59 pm Obesity affecting April 20, 2 025 1:59pm PCOS (polycystic ovarian syndrome) April 20, 2025 1:59pm April 20, 2025 1:59 pm Rh negative status during April 20, 2025 1:59pm Sleep apnea April 20, 2025 1:59 pm Supervision of high-risk April 20, 2025 1:59pm Abnormal glucose affecting Mar 1:59pm AMA (advanced maternal age) multigravida 35+ April 20, 2025 1:59pm Conceived by in vitro fertilization April 20, 2025 1:59pm Family history of genetic disorder April 20, 2025 1:59pm H/O section April 20, 2025 1:5 9pm Itching April 20, 2025 1:59 pm Depression with anxiety April 28, 2025 2:01pm GERD (gastroesophageal reflux disease) J [facility] 2024 2:01pm Infertility associated with anovulation April 28, 2025 2:01pm Marijuana use April 28, 2025 2:01 pm Obesity affecting April 28, 2 025 2:01pm PCOS (polycystic ovarian syndrome) April 28, 2025 2:01pm April 28, 2025 2:01 pm Rh negative status during April 28, 2025 2:01pm Sleep apnea April 28, 2025 2:01 pm Supervision of high-risk April 28, 2025 2:01pm Abnormal glucose affecting Mar 2:01pm AMA (advanced maternal age) multigravida 35+ April 28, 2025 2:01pm Conceived by in vitro fertilization April 28, 2025 2:01pm Family history of genetic disorder April 28, 2025 2:01pm H/O section April 28, 2025 2:0 1pm Itching April 28, 2025 2:01 pm Depression with anxiety May 06, 2025 2:05pm GBS (group B Streptococcus c arrier), +RV culture, currently May 06, 2025 2:05pm GERD (gastroesophageal reflux disease) A [facility]2024 2:05pm Infertility associated with anovulation May 06, 2025 2:05pm Marijuana use May 06, 2025 2:0 5pm Obesity affecting May 06, 2025 2:05pm PCOS (polycystic ovarian syndrome) [facility] 2024 2:05pm May 06, 2025 2:0 5pm Rh negative status during 2024 2:05pm Sleep apnea May 06, 2025 2:0 5pm Supervision of high-risk [facility] 2024 2:05pm Abnormal glucose affecting Apr 2:05pm AMA (advanced maternal age) multigravida 35+ May 06, 2025 2:05pm Conceived by in vitro fertilization 2024 2:05pm Family history of genetic disorder [facility] 2024 2:05pm H/O section May 06, 2025 2: 05pm Itching May 06, 2025 2:0 5pm Depression with anxiety May 12 5:52am GBS (group B Streptococcus c arrier), +RV culture, currently May 12, 2025 5:52am GERD (gastroesophageal reflux disease) A [facility] 2024 5:52am Infertility associated with anovulation May 12, 2025 5:52am Marijuana use May 12, 2025 5: 52am Obesity affecting May 12, 2025 5:52am PCOS (polycystic ovarian syndrome) [facility] 2024 5:52am May 12, 2025 5: 52am Rh negative status during [facility] 2024 5:52am S/P May 12, 2025 5: 52am Sleep apnea May 12, 2025 5: 52am Supervision of high-risk [facility] 2024 5:52am Abnormal glucose affecting Apr us2024 5:52am AMA (advanced maternal age) multigravida 35+ May 12, 2025 5:52am Conceived by in vitro fertilization [facility] 2024 5:52am Family history of genetic disorder [facility] 2024 5:52am H/O section May 12, 2025 5 :52am Itching May 12, 2025 5: 52am Postoperative fever May 24, 2025 7: 36pm S/P May 24, 2025 7: 36pm Soft tissue abscess May 24, 2025 7: 36pm Subcutaneous abscess May 24, 2025 7 :36pm Tachycardia May 24, 2025 7: 36pm Chief Complaint Admit Date 28 WK OB/GLUCOSE *DOC ONLY* February 26 [...] 8:28am C SECTION/DELIVERED C SECTION April 8:40am SOFT TISSUE ABSCESS STATUS POST CSECTION May 24, 2025 7:05pm SOFT TISSUE ABSCESS STATUS POST CSECTION May 24, 2025 7:36pm SOFT TISSUE ABSCESS STATUS POST CSECTION May 25, 2025 7:40am SOFT TISSUE ABSCESS STATUS POST CSECTION May 26, 2025 8:18am SOFT TISSUE ABSCESS STATUS POST CSECTION May 27, 2025 12:38am SOFT TISSUE ABSCESS STATUS POST CSECTION May 27, 2025 7:30am SOFT TISSUE ABSCESS STATUS POST CSECTION May 28, 2025 7:51am SOFT TISSUE ABSCESS STATUS POST CSECTION May 28, 2025 11:44am Referral Order June 03, 2025 2:34pm Reason for Visit Admit Date Depression with anxiety February 26, 2025 8 :34am GERD (gastroesophageal reflux disease) M ay 2024 8:34am Infertility associated with anovulation February 26, 2025 8:34am Marijuana use February 26, 2025 8:34a m Obesity affecting February 26 8:34am PCOS (polycystic ovarian syndrome) January 302024 8:34am February 26, 2025 8:34a m Rh negative status during February 26, 2025 8:34am Sleep apnea February 26, 2025 8:34a m Supervision of high-risk January 302024 8:34am AMA (advanced maternal age) multigravida 35+ February 26, 2025 8:34am Conceived by in vitro fertilization February 26, 2025 8:34am Family history of genetic disorder January 302024 8:34am H/O section February 26, 2025 8:34 am Depression with anxiety March 10, 2025 2:11pm GERD (gastroesophageal reflux disease) J [facility] 2024 2:11pm Infertility associated with anovulation March 10, 2025 2:11pm Marijuana use March 10, 2025 2:11 pm Obesity affecting March 10 2:11pm PCOS (polycystic ovarian syndrome) March 10, 2025 2:11pm March 10, 2025 2:11 pm Rh negative status during March 10, 2025 2:11pm Sleep apnea March 10, 2025 2:11 pm Supervision of high-risk March 10, 2025 2:11pm Abnormal glucose affecting Teo 2024 2:11pm AMA (advanced maternal age) multigravida 35+ March 10, 2025 2:11pm Conceived by in vitro fertilization March 10, 2025 2:11pm Family history of genetic disorder March 10, 2025 2:11pm H/O section March 10, 2025 2:1 1pm Depression with anxiety March 26, 2025 2:10pm GERD (gastroesophageal reflux disease) J une 2024 2:10pm Infertility associated with anovulation March 26, 2025 2:10pm Marijuana use March 26, 2025 2:10 pm Obesity affecting March 26 025 2:10pm PCOS (polycystic ovarian syndrome) March 26, 2025 2:10pm March 26, 2025 2:10 pm Rh negative status during March 26, 2025 2:10pm Sleep apnea March 26, 2025 2:10 pm Supervision of high-risk March 26, 2025 2:10pm Abnormal glucose affecting Teo e 2024 2:10pm AMA (advanced maternal age) multigravida 35+ March 26, 2025 2:10pm Conceived by in vitro fertilization March 26, 2025 2:10pm Family history of genetic disorder March 26, 2025 2:10pm H/O section March 26, 2025 2:1 0pm Depression with anxiety April 07, 2025 9 :54am GERD (gastroesophageal reflux disease) J [facility]iel 2024 9:54am Infertility associated with anovulation April 07, 2025 9:54am Marijuana use April 07, 2025 9:54a m Obesity affecting April 07 9:54am PCOS (polycystic ovarian syndrome) April 07, 2025 9:54am April 07, 2025 9:54a m Rh negative status during April 07, 2025 9:54am Sleep apnea April 07, 2025 9:54a m Supervision of high-risk April 07, 2025 9:54am Abnormal glucose affecting Mar 9:54am AMA (advanced maternal age) multigravida 35+ April 07, 2025 9:54am Conceived by in vitro fertilization April 07, 2025 9:54am Family history of genetic disorder April 07, 2025 9:54am H/O section April 07, 2025 9:54 am Infertility associated with anovulation April 19, 2025 8:47am Marijuana use April 19, 2025 8:47 am Obesity affecting April 19, 025 8:47am April 19, 2025 8:47 am Rh negative status during April 19, 2025 8:47am Sleep apnea April 19, 2025 8:47 am Supervision of high-risk April 19, 2025 8:47am Abnormal glucose affecting Mar 8:47am AMA (advanced maternal age) multigravida 35+ April 19, 2025 8:47am Conceived by in vitro fertilization April 19, 2025 8:47am Family history of genetic disorder April 19, 2025 8:47am H/O section April 19, 2025 8:4 7am Itching April 19, 2025 8:47 am H/O biophysical profile with non-s tress test April 19, 2025 8:47am Depression with anxiety April 20, 2025 1:59pm GERD (gastroesophageal reflux disease) J gamaliel 2024 1:59pm Infertility associated with anovulation April 20, 2025 1:59pm Marijuana use April 20, 2025 1:59 pm Obesity affecting April 20 025 1:59pm PCOS (polycystic ovarian syndrome) April 20, 2025 1:59pm April 20, 2025 1:59 pm Rh negative status during April 20, 2025 1:59pm Sleep apnea April 20, 2025 1:59 pm Supervision of high-risk April 20, 2025 1:59pm Abnormal glucose affecting Mar 1:59pm AMA (advanced maternal age) multigravida 35+ April 20, 2025 1:59pm Conceived by in vitro fertilization April 20, 2025 1:59pm Family history of genetic disorder April 20, 2025 1:59pm H/O section April 20, 2025 1:5 9pm Itching April 20, 2025 1:59 pm Depression with anxiety April 28, 2025 2:01pm GERD (gastroesophageal reflux disease) J gamaliel 2024 2:01pm Infertility associated with anovulation April 28, 2025 2:01pm Marijuana use April 28, 2025 2:01 pm Obesity affecting April 28, 2 025 2:01pm PCOS (polycystic ovarian syndrome) April 28, 2025 2:01pm April 28, 2025 2:01 pm Rh negative status during April 28, 2025 2:01pm Sleep apnea April 28, 2025 2:01 pm Supervision of high-risk April 28, 2025 2:01pm Abnormal glucose affecting Pablo y 30th, 2025 2:01pm AMA (advanced maternal age) multigravida 35+ April 28, 2025 2:01pm Conceived by in vitro fertilization April 28, 2025 2:01pm Family history of genetic disorder April 28, 2025 2:01pm H/O section April 28, 2025 2:0 1pm Itching April 28, 2025 2:01 pm Depression with anxiety May 06, 2025 2:05pm GBS (group B Streptococcus c arrier), +RV culture, currently May 06, 2025 2:05pm GERD (gastroesophageal reflux disease) A ug2024 2:05pm Infertility associated with anovulation May 06, 2025 2:05pm Marijuana use May 06, 2025 2:0 5pm Obesity affecting May 06, 2025 2:05pm PCOS (polycystic ovarian syndrome) Aprus 2024 2:05pm May 06, 2025 2:0 5pm Rh negative status during 2024 2:05pm Sleep apnea May 06, 2025 2:0 5pm Supervision of high-risk Aprus 2024 2:05pm Abnormal glucose affecting Apr us2024 2:05pm AMA (advanced maternal age) multigravida 35+ May 06, 2025 2:05pm Conceived by in vitro fertilization 2024 2:05pm Family history of genetic disorder Augus 2024 2:05pm H/O section May 06, 2025 2: 05pm Itching May 06, 2025 2:0 5pm Depression with anxiety May 12 5:52am GBS (group B Streptococcus c arrier), +RV culture, currently May 12, 2025 5:52am GERD (gastroesophageal reflux disease) A ugust 2024 5:52am Infertility associated with anovulation May 12, 2025 5:52am Marijuana use May 12, 2025 5: 52am Obesity affecting May 12, 2025 5:52am PCOS (polycystic ovarian syndrome) Augus t 2024 5:52am May 12, 2025 5: 52am Rh negative status during Augu st 2024 5:52am S/P May 12, 2025 5: 52am Sleep apnea May 12, 2025 5: 52am Supervision of high-risk Augus t 2024 5:52am Abnormal glucose affecting Aug ust 2024 5:52am AMA (advanced maternal age) multigravida 35+ May 12, 2025 5:52am Conceived by in vitro fertilization [facility] 2024 5:52am Family history of genetic disorder Augus t 2024 5:52am H/O section May 12, 2025 5 :52am Itching May 12, 2025 5: 52am Postoperative fever May 24, 2025 7: 36pm S/P May 24, 2025 7: 36pm Soft tissue abscess May 24, 2025 7: 36pm Subcutaneous abscess May 24, 2025 7 :36pm Tachycardia May 24, 2025 7: 36pm Additional Source Comments Reason for Visit (unrecogniz [...] BILATERAL MAMMO DIAGNOSTIC BILATERAL Lawrence Young MD [address] [place] [address] Referral ID Status Reason Start Date Expiration Date V isits Requested Visits Authorized [id number] New Request 12/19/2022 01/13/2024 1 1 Reason Comments Cough Fevers x4 days Specialty Diagnoses / Procedures Referred By Adia vicente Referred To Contact Radiology Diagnoses Encounter for assisted reproductive fertility procedure cycle Procedures US PELVIS TRANSABDOMINAL WITH TRANSVAGINAL US pelvis transvaginal Levon Braxton MD [address] [place] [address] Referral ID Status Reason Start Date Expiration Date Visits Requested Visits Authorized [id number] Pending Review Perform Procedure 06/11/2024 06/11/2025 1 1 Specialty Diagnoses / Procedures Referred By Contac t Referred To Contact Radiology Diagnoses Encounter for assisted reproductive fertility procedure cycle Procedures US PELVIS TRANSABDOMINAL WITH TRANSVAGINAL Levon Braxton MD [address] [place] [address] Referral ID Status Reason Start Date Expiration Date Visits Requested Visits Authorized [id number] Authorized Perform Procedure 06/15/2024 06/15/2025 1 1 Referral ID Status Reason Start Date Expiration Date Visits Requested Visits Authorized [id number] Authorized Perform Procedure 06/15/2024 06/15/2025 1 1 Referral ID Status Reason Start Date Expiration Date Visits Requested Visits Authorized [id number] Authorized Perform Procedure 06/15/2024 06/15/2025 1 1 Reason Comments Cough Max Alan PA-C - 07/29/2019 1:14 PM Mirta Davenport RN - 07/29/2019 12:15 PM Mirta Davenport RN - 07/29/2019 10:40 AM Rebeca Jiménez RN - 07/29/2019 10:25 AM EDT ED Notes (unrecognized secti on and content) [facility] NAME: Barby Caballero PCP: Marta Del Valle MD AGE: 28 y.o. CSN: [id number] ED Course / Medical Decision Making: After [...] does note that she has a Halloween constitution party she is hosting this weekend and [...] file Gets together: Not on file Attends baptist service: Not on file Active member of [...] Procedure Abnormality Status --------- ------ CBC Auto Differential[[id number]] Abnormal Final result Please view results for [...] Otherwise unremarkable right upper quadrant abdominal ultrasound. [facility] Workstation ID: [id number] No current facility-administered medications [...] for ER worsening or new concerning symptoms [address] [facility] [address] Contact information for after-discharge care Follow-up information has not been specified. New Prescriptions ondansetron (Zofran ODT) 4 MG disintegrating tablet Dissolve 1 (one) tablet (4 mg total) on top of tongue every 6 (six) hours as needed for nausea . Max MATTA PA-C Emergency Department Physician Oral Surgery Physician (Please note that portions of this note [...] with steady gait Associated Order(s): EKG 12-lead [facility] PCP - Marta Del Valle MD Chief Complaint Patient presents with Chest Pain HPI 28-year-old white female with a history of reflux, depression, anxiety, and irritable bowel states that shortly after 6 PM she had some [place] fries and drank a beer and then [...] Marta Del Valle MD. Specialty: Internal Medicine [address] [place] [address] [facility] [address] Contact information for after-discharge care Follow-up [...] file Gets together: Not on file Attends baptist service: Not on file Active member of [...] other acute process. [facility] Workstation ID: [id number] No results found. Medications Ordered/Given During ED Visit Medications aspirin chewable tablet 324 mg (324 mg Oral Given 03/19/19 0015) lidocaine viscous 2% 10 mL and maalox plus 30 mL (GI COCKTAIL) 40 mL solution (40 mL Oral Given 03/19/1915) ketorolac (TORADOL) injection 30 mg (30 mg Intravenous Given 03/19/19115) ondansetron (ZOFRAN) injection 4 mg (4 mg Intravenous Given 03/19/19113) EKG 12-lead Date/Time: 03/18/2019 11:49 PM Performed [...] expedite correspondence this note was generated by [employer] voice recognition software. Some grammatical or spelling [...] Procedure Abnormality Status --------- ------ CBC Auto Differential[[id number]] Abnormal Final result Please view results for [...] took protonix at dinner which she had bolivian fries and 1 [place] drink. documented [...] section and content) DATE CREATED AUTHOR 07/27/2020 [facility] DATE CREATED AUTHOR AUTHOR'S ORGANIZ ATION 08/23/2020 [facility] DATE CREATED AUTHOR AUTHOR'S ORGANIZ ATION 10/04/2021 [facility] DATE CREATED AUTHOR AUTHOR'S ORGANIZ ATION 10/06/2021 [facility] DATE CREATED AUTHOR AUTHOR'S ORGANIZ ATION 10/08/2021 [facility] DATE CREATED AUTHOR AUTHOR'S ORGANIZ ATION 05/04/2023 [facility] DATE CREATED AUTHOR AUTHOR'S ORGANIZ ATION 10/09/2024 [facility] DATE CREATED AUTHOR AUTHOR'S ORGANIZ ATION 10/09/2024 [facility] DATE CREATED AUTHOR AUTHOR'S ORGANIZ ATION 11/05/[address] [facility] DATE CREATED AUTHOR AUTHOR'S ORGANIZ ATION 05/10/2025 [facility] DATE CREATED AUTHOR AUTHOR'S ORGANIZ ATION 06/02/2025 [facility] Care Teams (unrecognized sec tion and content) Farm Adviser Relationship Specialty Start Date End Date Marta Del Valle MD PCP - General Internal Medicine 12/09/13 [employer] Ad[employer]er Relationship Specialty Start Date End Date Marta Del Valle MD PCP - General Internal Medicine 12/09/13 Faith Starkey MD [address] [phone] PCP - OBGYN Obstetrics & Gynecology 07/17/21 Farm Adviser Relationship Specialty Start Date End Date Marta Del Valle MD PCP - General Internal Medicine 12/09/13 Faith Starkey MD [address] [phone] PCP - OBGYN Obstetrics & Gynecology 07/17/21 Farm Adviser Relationship Specialty Start Date End Date Faith Starkey MD [address] [phone] PCP - OBGYN Obstetrics & Gynecology 07/17/21 Marta Del Valle MD [address] [place] [address] PCP - General Internal Medicine 01/09/23 Lawrence Young MD [address] [place] [address] Referring Provider Internal Medicine 01/09/23 Team Status: Active Member Role Status Dates No Primary Care Physician Primary Care Provider Active Team Status: Inactive Member Role Status Dates Dr. Edel Bullock , DO Attending Provider Activ e JOSH LOZANO Referring Provider Active Team Status: Active Member Role Status Dates Dr. Edel Bullock , DO Attending Provider, Referring Provider, Other Provider Active No Primary Care Physician Primary Care Provider Active Team Status: Inactive Member Role Status Dates Dr. Edel Bullock , DO Attending Provider, Refe rring Provider Active No Primary Care Physician Primary Care Provider Active Farm Adviser Relationship Specialty Start Date End Date Faith Starkey MD [address] [phone] PCP - OBGYN Obstetrics & Gynecology 07/17/21 Marta Del Valle MD [address] [place] [phone] PCP - General Internal Medicine 01/09/23 Lawrence Young MD [address] [place] [phone] Referring Provider Internal Medicine 01/09/23 Farm Adviser Relationship Specialty Start Date End Date Steffen Eisenberg MD [address] [place] [phone] PCP - General Internal Medicine 08/14/24 Farm Adviser Relationship Specialty Start Date End Date Generic Provider, [place] [address] PCP - General Textile Artist 06/15/24 Farm Adviser Relationship Specialty Start Date End Date Generic Provider, [place] [address] PCP - General Textile Artist 06/15/24 Farm Adviser Relationship Specialty Start Date End Date Generic Provider, [place] [address] PCP - General Textile Artist 06/15/24 Farm Adviser Relationship Specialty Start Date End Date Generic Provider, [place] [address] PCP - General Textile Artist 06/15/24 Farm Adviser Relationship Specialty Start Date [place]ffen [place] [address] [place] [phone] PCP - General Internal Medicine 08/14/24 Farm Adviser Relationship Specialty Start Date End [place] Steffen Eisenberg MD [address] [place] [phone] PCP - General Internal Medicine 08/14/24 Team [...] tart: April 19, 2025 Kiely Jain CNM Other Provider Active Start : [...] 26, 2025 End: March 26, 2025 Dr. Setffen Eisenberg MD Referring Provider Active Start: March [...] Active Member Role/Relationship Status Dates Dr. Steffen Eisenebrg MD Primary Care Provider Active Start: May [...] Attending Provider Active Start: May 15, 2025 Team Status: Active Member Role/Relationship Status Dates Dr. Steffen Eisenberg MD Primary Care Provider Active Start: May 24, 2025 Dr. Pee Sargent , Emergency Provider Active Start: May 24, 2025 Dr. Edel Bullock , Admit Provider Active Start: May 24, 2025 Dr. Edel Bullock DO Attending Provider Activ e Start: May 24, 2025 Team Status: Active Member Role/Relationship Status Dates Dr. Steffen Eisenberg MD Primary Care Provider Active Start: May 24, 2025 Dr. Pee Sargent , Emergency Provider Active Start: May 24, 2025 Dr. Edel Bullock DO Admit Provider Active Start: May 24, 2025 Dr. Edel Bullock DO Attending Provider Activ e Start: May 24, 2025 Dr. Edel Bullock DO Other Provider Active Start: May 24, 2025 Team Status: Active Member Role/Relationship Status Dates Dr. Steffen Eisenberg MD Primary Care Provider Active Start: May 24, 2025 Dr. Pee Sargent , Emergency Provider Active Start: May 24, 2025 Dr. Edel Bullock DO Admit Provider Active Start: May 24, 2025 Dr. Edel Bullock DO Attending Provider Activ e Start: May 24, 2025 Dr. Edel Bullock DO Other Provider Active Start: May 24, 2025 Team Status: Inactive Member Role/Relationship Status Dates Dr. Steffen Eisenberg MD Primary Care Provider Active Start: May 24, 2025 End: May 28, 2025 Dr. Pee Sargent , DO Emergency Provider Active Start: May 24, 2025 End: May 28, 2025 Dr. Edel Bullock , DO Admit Provider Active Start: May 24, 2025 End: May 28, 2025 Dr. Edel Bullock DO Attending Provider Activ e Start: May 24, 2025 End: May 28, 2025 Dr. Levon Schmid MD Other Provider Active Start: May 24, 2025 End: May 28, 2025 Team Status: Active Member Role/Relationship Status Dates Dr. Steffen Eisenberg MD Primary Care Provider Active Start: May 25, 2025 Dr. Pee Sargent , DO Emergency Provider Active Start: May 25, 2025 Dr. Edel Bullock DO Admit Provider Active Start: May 25, 2025 Dr. Edel Bullock DO Attending Provider Activ e Start: May 25, 2025 Dr. Edel Bullock DO Other Provider Active Start: May 25, 2025 Team Status: Active Member Role/Relationship Status Dates Dr. Steffen Eisenberg MD Primary Care Provider Active Start: May 26, 2025 Dr. Pee Sargent , Emergency Provider Active Start: May 26, 2025 Dr. Edel Bullock DO Admit Provider Active Start: May 26, 2025 Dr. Edel Bullock DO Attending Provider Activ e Start: May 26, 2025 Dr. Edel Bullock DO Other Provider Active Start: May 26, 2025 Team Status: Active Member Role/Relationship Status Dates Dr. Steffen Eisenberg MD Primary Care Provider Active Start: May 27, 2025 Dr. Pee Sargent , Emergency Provider Active Start: May 27, 2025 Dr. Edel Bullock DO Admit Provider Active Start: May 27, 2025 Dr. Edel Bullock DO Attending Provider Activ e Start: May 27, 2025 Dr. Edel Bullock DO Other Provider Active Start: May 27, 2025 Dr. Levon Schmid MD Other Provider Active Start: May 27, 2025 Team Status: Active Member Role/Relationship Status Dates Dr. Steffen Eisenberg MD Primary Care Provider Active Start: May 27, 2025 Dr. Pee Sargent , Emergency Provider Active Start: May 27, 2025 Dr. Edel Bullock DO Admit Provider Active Start: May 27, 2025 Dr. Edel Bullock DO Other Provider Active Start: May 27, 2025 Dr. Levon Schmid MD Other Provider Active Start: May 27, 2025 Dr. Garrett Hernandez MD Attending Provider Active Start: May 27, 2025 Team Status: Active Member Role/Relationship Status Dates Dr. Steffen Eisenberg MD Primary Care Provider Active Start: May 28, 2025 Dr. Pee Sargent , Emergency Provider Active Start: May 28, 2025 Dr. Edel Bullock , Admit Provider Active Start: May 28, 2025 Dr. Edel Bullock DO Attending Provider Activ e Start: May 28, 2025 Dr. Edel Bullock DO Other Provider Active Start: May 28, 2025 Dr. Levon Schmid MD Other Provider Active Start: May 28, 2025 Team Status: Active Member Role/Relationship Status Dates Dr. Steffen Eisenberg MD Primary Care Provider Active Start: May 28, 2025 Dr. Pee Sargent , Emergency Provider Active Start: May 28, 2025 Dr. Edel Bullock DO Admit Provider Active Start: May 28, 2025 Dr. Edel Bullock DO Other Provider Active Start: May 28, 2025 Dr. Levon Schmid MD Other Provider Active Start: May 28, 2025 Dr. Garrett Hernandez MD Attending Provider Active Start: May 28, 2025 Team Status: Inactive Member Role/Relationship [...] 2025 End: May 15, 2025 Dr. Edel Vande Velde , DO Referring Provider Activ e Start: May [...] Attending Provider Active Start: May 15, 2025 Team Status: Active Member Role/Relationship Status Dates Dr. Stefefn Eisenberg MD Primary Care Provider Active Start: May 24, 2025 Dr. Pee Sargent , Emergency Provider Active Start: May 24, 2025 Dr. Edel Bullock DO Admit Provider Active Start: May 24, 2025 Dr. Edel Bullock , DO Attending Provider Activ e Start: May 24, 2025 Dr. Edel Bullock DO Other Provider Active Start: May 24, 2025 Team Status: Inactive Member Role/Relationship Status Dates Dr. Steffen Eisenberg MD Primary Care Provider Active Start: May 24, 2025 End: May 28, 2025 Dr. Pee Sargent , DO Emergency Provider Active Start: May 24, 2025 End: May 28, 2025 Dr. Edel Bullock DO Admit Provider Active Start: May 24, 2025 End: May 28, 2025 Dr. Edel Bullock DO Attending Provider Activ e Start: May 24, 2025 End: May 28, 2025 Dr. Levon Schmid MD Other Provider Active Start: May 24, 2025 End: May 28, 2025 Team Status: Active Member Role/Relationship Status Dates Dr. Steffen Eisenberg MD Primary Care Provider Active Start: May 25, 2025 Dr. Pee Sargent , Emergency Provider Active Start: May 25, 2025 Dr. Edel Bullock DO Admit Provider Active Start: May 25, 2025 Dr. Edel Bullock DO Attending Provider Activ e Start: May 25, 2025 Dr. Edel Bullock DO Other Provider Active Start: May 25, 2025 Team Status: Active Member Role/Relationship Status Dates Dr. Steffen Eisenberg MD Primary Care Provider Active Start: May 26, 2025 Dr. Pee Sargent , DO Emergency Provider Active Start: May 26, 2025 Dr. Edel Bullock DO Admit Provider Active Start: May 26, 2025 Dr. Edel Bullock DO Attending Provider Activ e Start: May 26, 2025 Dr. Edel Bullock DO Other Provider Active Start: May 26, 2025 Team Status: Active Member Role/Relationship Status Dates Dr. Steffen Eisenberg MD Primary Care Provider Active Start: May 27, 2025 Dr. Pee Sargent DO Emergency Provider Active Start: May 27, 2025 Dr. Edel Bullock DO Admit Provider Active Start: May 27, 2025 Dr. Edel Bullock DO Attending Provider Activ e Start: May 27, 2025 Dr. Edel Bullock DO Other Provider Active Start: May 27, 2025 Dr. Levon Schmid MD Other Provider Active Start: May 27, 2025 Team Status: Active Member Role/Relationship Status Dates Dr. Steffen Eisenberg MD Primary Care Provider Active Start: May 27, 2025 Dr. Pee Sargent DO Emergency Provider Active Start: May 27, 2025 Dr. Edel Bullock DO Admit Provider Active Start: May 27, 2025 Dr. Edel Bullock DO Other Provider Active Start: May 27, 2025 Dr. Levon Schmid MD Other Provider Active Start: May 27, 2025 Dr. Garrett Hernandez MD Attending Provider Active Start: May 27, 2025 Team Status: Active Member Role/Relationship Status Dates Dr. Steffen Eisenberg MD Primary Care Provider Active Start: May 28, 2025 Dr. Pee Sargent DO Emergency Provider Active Start: May 28, 2025 Dr. Edel Bullock DO Admit Provider Active Start: May 28, 2025 Dr. Edel Bullock DO Attending Provider Activ e Start: May 28, 2025 Dr. Edel Bullock DO Other Provider Active Start: May 28, 2025 Dr. Levon Schmid MD Other Provider Active Start: May 28, 2025 Team Status: Active Member Role/Relationship Status Dates Dr. Steffen Eisenberg MD Primary Care Provider Active Start: May 28, 2025 Dr. Pee Sargent DO Emergency Provider Active Start: May 28, 2025 Dr. Edel Bullock DO Admit Provider Active Start: May 28, 2025 Dr. Edel Bullock DO Other Provider Active Start: May 28, 2025 Dr. Levon Schmid MD Other Provider Active Start: May 28, 2025 Dr. Garrett Hernandez MD Attending Provider Active Start: May 28, 2025 Team Status: Active Member Role/Relationship Status Dates Dr. Steffen Eisenberg MD Primary Care Provider Active Start: June 01, 2025 Dr. Edel Bullock , Attending Provider Activ e Start: June 01, 2025 Dr. Edel Bullock , DO Referring Provider Activ e Start: June 01, 2025 Team Status: Active Member Role/Relationship Status Dates Dr. Steffen Eisenberg MD Primary Care Provider Active Start: June 03, 2025 Dr. Garrett Hernandez MD Attending Provider Active Start: June 03, 2025 Goals (unrecognized section and content) Goals [...] or prosecute any alcohol or drug abuse patient.[facility]In the event this information is protected by the Federal Confidentiality of Alcohol and Drug Abuse Patient Records regulations: The Federal rules restrict any use of the information to criminally investigate or prosecute any alcohol or drug abuse patient.[facility] FOR RECORDS PERTAINING TO PATIENTS WHO [...] BE BASED ON THE PRIMARY CLINICAL RECORDS. [facility]. provides no warranty or guarantee of the accuracy or completeness of information in this document.
[2025-06-05 16:41] VITALS: BP 122/80
[2025-06-05 16:52] VITALS: BP 122/80; PULSE 75; RESP 16; TEMP 36.8; O2SAT 95
[2025-06-05 16:55] VITALS: BP 113/71; PULSE 80; RESP 16; TEMP 36.8; O2SAT 98
[2025-06-05 17:02] LABS: Hematocrit 30.1 % (37-47); Hemoglobin 9.5 g/dL (12.0-15.0); Immature Granulocytes Count 0.130 X10^3/uL (0.0-0.0); Mean Corp Hgb Conc 31.6 g/dL (32-36); Mean Corpuscular Volume 89.1 fL (81-99); Mean Platelet Vol. 8.5 fl (6.2-12.0); NRBC Flagged by Analyzer 0 % (0-5); Platelet Count 406 K/mm3 (150-450); RBC Distribution Width CV 14.1 % (11.6-14.6); RBC Distribution Width SD 45.5 fl (35.1-43.9); Red Blood Count 3.38 M/mm3 (4.2-5.4); White Blood Count 10.8 K/mm3 (4.4-11.0)
[2025-06-05 18:00] VITALS: BP 128/70; PULSE 83; O2SAT 98
[2025-06-05 18:18] VITALS: BP 128/70; PULSE 83; RESP 16; TEMP 36.8; O2SAT 98
== END 2025-06-05 18:48 | disposition home or self-care (01) ==
PROVIDERS: Emergency Provider Emergency Medicine; PCP Internal Medicine; Visit Provider Emergency Medicine
DX: B37.9 Candidiasis, unspecified (principal); F41.8 Other specified anxiety disorders; Z79.899 Other long term (current) drug therapy; K21.9 Gastro-esophageal reflux disease without esophagitis; Z90.49 Acquired absence of other specified parts of digestive tract
CPT/HCPCS: 83605; 85025; 99282; A4216

== ENCOUNTER 2025-06-25 11:00 | Outpatient (RCR) | payer BC, SELFPAY ==
[2025-06-09 08:17] VITALS: BP 123/89; PULSE 87; RESP 14; TEMP 36.8; BMI 47.5
--- NOTE | 2025-06-09 12:15 | PCM.WC.HP ---
History of Present Illness Date of Service: 06/09/25 Chief Complaint: Surgical abdominal wound infected History of Wound: 34-year-old white female that had a recent about 4 weeks ago. The wound became infected and they reopened her approximately 2 weeks ago. And applied a wound VAC to it. They supposedly started her on antibiotics from wound cultures and she developed a yeast infection around the wound because of the wetness from the wound VAC on the drape. They did give her 7 days of Diflucan but that was all. The wound is a full-thickness in the shape of her wound. [facility] Medical History PCOS (polycystic ovarian syndrome) Infertility Depression with anxiety GERD (gastroesophageal reflux disease) Home Medications ?Medication ?Instructions ?Recorded ?Last Taken ?Type escitalopram oxalate 10 mg tablet 10 mg PO DAILY anxiety/depression 07/20/24 05/23/25 Rx (Lexapro) #30 tabs docosahexaenoic acid 200 mg 200 mg PO DAILY #90 caps 07/28/24 05/23/25 Rx capsule ( DHA) famotidine 40 mg tablet (Pepcid) 40 mg PO DAILY indigestion #30 tabs 01/11/25 05/23/25 Rx breast pump #1 ea 01/29/25 Unknown Rx ibuprofen 800 mg tablet 800 mg PO Q8H PRN pain #30 tabs 05/12/25 05/24/25 Rx acetaminophen 500 mg capsule 1,000 mg PO Q6H PRN fever or pain 05/24/25 05/24/25 History CPAP - Continuous Positive Airway 05/28/25 Unknown History Pressure([facility] INFORMATIONAL USE ONLY) oxycodone 5 mg tablet 5 mg PO Q4H PRN PRN Pain Score 05/28/25 Unknown Rx 4-10 7 days #30 tabs fluconazole 100 mg tablet 100 mg PO DAILY 7 days #7 tabs 06/05/25 Unknown Rx Allergy/AdvReac Type Severity Reaction Status Date / Time No Known Allergies Allergy Verified 06/09/25 08:35 Family History Mother Hypertension Grandfather Heart disease Hypertension Diabetes Cancer Macular degeneration Grandmother Macular degeneration Surgical History H/O successful vaginal after , currently H/O section History of surgical procedure S/P cholecystectomy S/P S/P wisdom tooth extraction Social History adopted: No household members: spouse and children housing: house number of children: 1 current occupational status: unemployed current occupation: [employer] current occupational exposures/hazards: No 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) pets and animals: cat(s) history of recent travel: Yes ([place] for IVF) out of state: Yes sexually active: Yes Smoking Status: Former smoker quit date: 09/30/21 alcohol intake: current alcohol intake frequency: holidays/special occasions only details: Not while substance use type: former substance user Date of last use: May 2024 and marijuana diet: vegetarian well-balanced diet: about half the time caffeine: Yes Type: carbonated beverages Number of servings: 1 eating out: 4 or more times/week during the past year weight has: remained stable what type of physical activity do you participate in: none landon/lutheran: None seatbelt use: always do you feel safe at home: Yes additional social history: : [employer] (works from home) Addt'l Information Additional Findings: We did a wound culture to the wound after debridement of the full-thickness and will give her a VAC holiday for a week to clear up her skin. Will also extend her Diflucan to [address] it should be to clear it up. ROS Constitutional Constitutional: Reports systems reviewed and no addt'l complaints, except as documented Eyes Eyes: Reports systems reviewed and no addt'l complaints, except as documented ENT HEENT: Reports systems reviewed and no addt'l complaints, except as documented Cardiovascular Cardiovascular: Reports systems reviewed and no addt'l complaints, except as documented Respiratory/Chest Respiratory/Chest: Reports systems reviewed and no addt'l complaints, except as documented Gastrointestinal Gastrointestinal: Reports systems reviewed and no addt'l complaints, except as documented Genitourinary Genitourinary: Reports systems reviewed and no addt'l complaints, except as documented Musculoskeletal Musculoskeletal: Reports systems reviewed and no addt'l complaints, except as documented Integumentary Integumentary: Reports systems reviewed and no addt'l complaints, except as documented, wounds and other Details: Open surgical wound that had become infected after a normal with positive depth Neurologic Neurologic: Reports systems reviewed and no addt'l complaints, except as documented Psychiatric Psychiatric: Reports systems reviewed and no addt'l complaints, except as documented Endocrine Endocrinology: Reports systems reviewed and no addt'l complaints, except as documented Hematologic/Lymphatic Hematologic/Lymphatic: Reports systems reviewed and no addt'l complaints, except as documented Allergic/Immunologic Allergic/Immunologic: Reports systems reviewed and no addt'l complaints, except as documented Vital Signs Vital Signs Vital Signs: 06/09/25 08:17 Temperature 98.2 F Temperature Source Temporal Pulse Rate 87 Respiratory Rate 14 Blood Pressure 123/89 H Blood Pressure Mean 100 Blood Pressure Source Monitor Weight Weight: 260 lb 3.23 oz Body Mass Index (BMI) 47.5 Physical Exam Const oriented x3 General Appearance: cooperative Exam Limitations: no limitations HEENT normocephalic Eyes PERRL Neck full ROM General: normal visual inspection Resp normal respiratory effort Effort and Inspection: able to speak in complete sentences Auscultation: clear to auscultation bilaterally Cardio regular rate and regular rhythm Palpation: normal PMI Rate: regular rate Rhythm: regular rhythm GI Auscultation: normoactive bowel sounds Palpation: soft and no hepatosplenomegaly external exam normal Back/Spine Cervical Spine: cervical ROM normal Thoracic Spine / Upper Back: normal to inspection Lumbar Spine / Lower Back: normal to inspection Extremity normal to inspection General Extremity: normal exam except as noted Skin Skin Narrative: Open wound at the site of her clean has some odor recultured will follow her up with no wound VAC this week and wet-to-dry with Dakin's and gauze. Patient would like to change days it moved to Fridays. Neuro oriented x3 Psych Appearance: grossly normal Speech: normal speech Thought Content: normal thought content Judgement: judgement good Debridement Note Debridement Note Wound debrided: Abdominal surgical wound infected Type of Debridement: Excisional debridement Anesthesia Used: 5% Lidocaine Gel Depth: in the subcutaneous layer Percentage of wound debrided: 100 Instrument Used: 7mm curette Tissue Removed: Fibrin Severity: Fat Layer Exposed Amount of bleeding with debridement: Mild Bleeding Controlled with: Compression and gauze Patient tolerated procedure: Patient tolerated procedure well Post-Debridement Measurements and Additional Note: Post-Debridement Measurements/Treatment WC - Nurse 1 - General Ulcer Assessment Start: 06/09/25 07:59 Freq: Status: Active Protocol: RAHEEM Activity Type Activity Date Activity User E-sign Co-sign Detail Recorded Client Recorded Date Recorded By Document 06/09/25 08:17 DL [id number] 06/09/25 08:33 DL 06/09/25 08:17 WC - Today's Visit Information Type of service Initial Visit Arrival Mode Ambulatory Transfer Assistance None Patient Identification Verified (Name & Yes ) Patient Requires Transmission-Based No Precautions Height and Weight Height 5 ft 2 in Weight 260 lb 3.23 oz Weight in Pounds 260.2 lbs Body Mass Index (BMI) 47.5 BMI Classification Obese Vital Signs Temperature (97.8 F-99.1 F) 98.2 F Temperature Source Temporal Pulse Rate (60-100) 87 Pulse Location Monitor Respiratory Rate (12-18) 14 Respiratory rate source Observation Blood Pressure (90/60-120/80) 123/89 H Blood Pressure Mean 100 Source Monitor Pain Scale: 0-10 Numeric Is Patient Pain Free? Yes Communication Assessment Preferred language Armenian Teaching Assessment Preferences Verbal,Written, Demonstration Barriers to Learning None Readiness To Learn Good Willingness to Engage in Self Management High Activies Readiness to Engage in Self Management High Activities Anxiety Level Calm Cooperation Cooperative Perception Coherent Interest in Health Problem Asks Questions Education Importance Acknowledges Need Does Patient Smoke tobacco or other No substances Smoking Status Former smoker Is Patient Diabetic No Teaching: Wound Center Discharge Instructions -Person Taught Patient *Welcome to the Wound Center -Person Taught Patient BART - Nurse 1 - General Ulcer Measurement Start: 06/09/25 07:59 Freq: Status: Active Protocol: Activity Type Activity Date Activity User E-sign Co-sign Detail Recorded Client Recorded Date Recorded By Document 06/09/25 08:17 DL [id number] 06/09/25 08:33 DL 06/09/25 08:17 Wound Center Nurse 1 #1 ABD -Current Size (cm) - Length 2 -Current Size (cm) - Width 11.6 -Current Size (cm) - Depth 2 -Total Square Cm 23.2 -Photo Taken Yes -Exudate Amt Medium -Exudate Type Serosanguineous -Wound Margin Distinct, Outline Attached -Granulation Amt Large (67-100%) -Granulation Quality Red -Necrosis Amt None Present (0 %) -Structure Exposed N/A -Texture (Stephanie-wound Skin Appearance) Scarring,Rash -Moisture (Stephanie-wound Skin Appearance) Weeping -Color (Stephanie-wound Skin Appearance) No Abnormality -Temperature (Stephanie-wound Skin No Abnormality Appearance) (Pt Warm) -Tenderness on Palpation (Stephanie-wound No Skin Appearance) -Ulcer Cleansing Soap and Water -Foul Odor after Cleansing No -Anesthetic Used 4% Lidocaine Solution - Nurse 2 - General Ulcer CM Notes Start: 06/09/25 07:59 Freq: Status: Active Protocol: Activity Type Activity Date Activity User E-sign Co-sign Detail Recorded Client Recorded Date Recorded By Document 06/09/25 08:53 [facility] [id number] 06/09/25 09:06 [facility] 06/09/25 08:53 Wound Center Nurse 2 -Time 08:54 -Correct Patient Yes -Correct Side, Site, Position Yes -Correct Procedure Yes -Procedure Performed Yes -Type of Procedure Debridement -Clinical Debridement Muscle / Fascia -Tissue Removed Muscle,Fascia -Post Debridement (cm) - Length 1 -Post Debridement (cm) - Width 13.5 -Post Debridement (cm) - Depth 2.5 -Total Square (Post) (cm) 13.5 -Area of Debridement (cm) - Length 1 -Area of Debridement (cm) - Width 13.5 -Total Square (Area) (cm) 13.5 -Tunneling No -Undermining/Tunneling No -Circular Undermining No -Wound/Ulcer Outcome Not Healed -Ulcer Cleansing Rinsed/ Irrigated with Saline -Foul Odor after Cleansing No -Bioengineered Tissue No -Bleeding Controlled with Pressure -Treatment Response Procedure Tolerated Well -Debridement - Muscle / Fascia, 1st Yes 20sq cm Pain Scale: 0-10 Numeric Is Patient Pain Free? Yes - Nurse 3 - General Ulcer D/C NN Start: 06/09/25 07:59 Freq: Status: Active Protocol: Activity Type Activity Date Activity User E-sign Co-sign Detail Recorded Client Recorded Date Recorded By Document 06/09/25 09:18 DL [id number] 06/09/25 09:19 DL 06/09/25 09:18 Wound Care Center Nurse 3 #1 ABD -Ulcer Cleansing Soap and Water -Foul Odor after Cleansing No -Primary Dressing Applied Hysept -Other Dressing Dakins -Primary Dressing Covered/Secured with Dry Gauze, Secured with Tape -Hysept 1 -Wound Comment(s) Vac Holiday Treatment Response Procedure Tolerated Well Pain Scale: 0-10 Numeric Is Patient Pain Free? Yes WC - Visit Discharge Discharge Condition Stable Ambulatory Status Ambulatory Transportation Private [facility] Facility Type Home Health Orders Sent Yes Assessment/Plan Assessment/Plan (1) Infection due to yeast: CODE(S): B37.9 - Candidiasis, unspecified (2) Subcutaneous abscess: CODE(S): L02.91 - Cutaneous abscess, unspecified QUALIFIERS: Site of cutaneous abscess: trunk Site of cutaneous abscess of trunk: abdominal wall Qualified Code(s): L02.211 - Cutaneous abscess of abdominal wall (3) Surgical wound, non healing: CODE(S): T81.89XA - Other complications of procedures, not elsewhere classified, initial encounter QUALIFIERS: Encounter type: initial encounter Qualified Code(s): T81.89XA - Other complications of procedures, not elsewhere classified, initial encounter PLAN: Wash the wound with antibacterial soap such as Dial pat dry pack wound with Dakin soaked gauze dressing and an ABD over top or a absorbent dressing. Every day change dressing twice a day if having a lot of drainage. Patient prefers to come on Fridays and will moved to a different provider (4) Infected wound: CODE(S): T14.8XXA - Other injury of unspecified body region, initial encounter; L08.9 - Local infection of the skin and subcutaneous tissue, unspecified
--- NOTE | 2025-06-09 12:44 | WC ---
PHOTO-ABD 06/09/25
--- NOTE | 2025-06-09 13:01 | WC ---
called Janeth, placed pt's wound vac on hold/holiday. Could not find her in [employer] portal.
--- NOTE | 2025-06-14 16:06 | WC ---
called pt to inform her that Keysha wants pt to be on Metronidazole 250mg 1 tab po TID for 14days. pt asking questions regarding which culture results this medication is for. Informed pt that I will contact Keysha to go over her results it may not be until tomorrow. pt understands and plans to picking tech prescription that was called into [facility].
[2025-06-18 09:48] VITALS: BP 142/104; PULSE 100; RESP 185; TEMP 36.7; BMI 47.5
--- NOTE | 2025-06-18 12:16 | WC ---
PHOTO-ABD 06/18/25
--- NOTE | 2025-06-18 13:43 | PCM.WC.HP ---
History of Present Illness Date of Service: 06/18/25 Chief Complaint: Surgical abdominal wound s/p abscess drainage History of Wound: Gunjan is a pleasant 34-year-old white female that had a on May 12, 2025. The wound became infected and she developed an abscess which was drained by Dr. Hernandez via re-opening the incision on 05/27/25. A wound vac was placed to help heal the surgical incision prior to discharge on 05/28/25. She was treated with IV antibiotics initially and discharged on Bactrim DS. She did develop a yeast infection of the skin surrounding the ulcer and was started on Fluconazole on 06/05/25. She was seen at the wound center for follow up on 06/09/25 by Keysha Carr CNP and a wound culture was completed which showed Morganella morganii, Staph epidermidis, Corynebacterium, and E. faecalis in very rare amounts as well as anaerobic bacteria. She was started on Flagyl for treatment of the anaerobic bacteria. She has been packing the wound with Dakins wet to dry dressings to give her skin a chance to heal from the yeast infection and has been tolerating this treatment well. She denies any fever, chills, increased drainage, erythema or odor. [facility], [facility] Medical History PCOS (polycystic ovarian syndrome) Infertility Depression with anxiety GERD (gastroesophageal reflux disease) Home Medications ?Medication ?Instructions ?Recorded ?Last Taken ?Type escitalopram oxalate 10 mg tablet 10 mg PO DAILY anxiety/depression 07/20/24 05/23/25 Rx (Lexapro) #30 tabs docosahexaenoic acid 200 mg 200 mg PO DAILY #90 caps 07/28/24 05/23/25 Rx capsule ( DHA) famotidine 40 mg tablet (Pepcid) 40 mg PO DAILY indigestion #30 tabs 01/11/25 05/23/25 Rx breast pump #1 ea 01/29/25 Unknown Rx ibuprofen 800 mg tablet 800 mg PO Q8H PRN pain #30 tabs 05/12/25 05/24/25 Rx acetaminophen 500 mg capsule 1,000 mg PO Q6H PRN fever or pain 05/24/25 05/24/25 History CPAP - Continuous Positive Airway 05/28/25 Unknown History Pressure([facility] INFORMATIONAL USE ONLY) fluconazole 100 mg tablet 100 mg PO DAILY 7 days #7 tabs 06/05/25 Unknown Rx ciprofloxacin HCl 500 mg tablet 500 mg PO BID #20 tabs 06/18/25 Unknown Rx Allergy/AdvReac Type Severity Reaction Status Date / Time No Known Allergies Allergy Verified 06/10/25 08:30 Family History Mother Hypertension Grandfather Heart disease Hypertension Diabetes Cancer Macular degeneration Grandmother Macular degeneration Surgical History H/O successful vaginal after , currently H/O section History of surgical procedure S/P cholecystectomy S/P S/P wisdom tooth extraction Social History adopted: No household members: spouse and children housing: house number of children: 1 current occupational status: unemployed current occupation: [employer] current occupational exposures/hazards: No 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) pets and animals: cat(s) history of recent travel: Yes ([place] for IVF) out of state: Yes sexually active: Yes Smoking Status: Former smoker quit date: 09/30/21 alcohol intake: current alcohol intake frequency: holidays/special occasions only details: Not while substance use type: former substance user Date of last use: May 2024 and marijuana diet: vegetarian well-balanced diet: about half the time caffeine: Yes Type: carbonated beverages Number of servings: 1 eating out: 4 or more times/week during the past year weight has: remained stable what type of physical activity do you participate in: none landon/yazdanism: None seatbelt use: always do you feel safe at home: Yes additional social history: : [employer] (works from home) ROS Constitutional Constitutional: Denies chills, fatigue or fever(s) Eyes Eyes: Denies blurry vision, change in vision or loss of vision ENT HEENT: Denies dysphagia, hearing loss or sore throat Cardiovascular Cardiovascular: Denies chest pain, edema or palpitations Respiratory/Chest Respiratory/Chest: Denies dry cough, dyspnea, dyspnea on exertion, productive cough or wheezing Gastrointestinal Gastrointestinal: Denies diarrhea, nausea or vomiting Genitourinary Genitourinary: Denies dysuria or polyuria Musculoskeletal Musculoskeletal: Denies arthralgias, joint stiffness or muscle weakness Integumentary Integumentary: Reports erythema and wounds Neurologic Neurologic: Denies dizziness, memory loss or weakness Psychiatric Psychiatric: Denies homicidal ideation or suicidal ideation Endocrine Endocrinology: Denies polydipsia, polyphagia or polyuria Hematologic/Lymphatic Hematologic/Lymphatic: Denies easy bleeding or easy bruising Allergic/Immunologic Allergic/Immunologic: Denies throat swelling, tongue swelling or urticaria Vital Signs Vital Signs Vital Signs: 06/18/25 09:48 Temperature 98.0 F Temperature Source Temporal Pulse Rate 100 Respiratory Rate 185 H Blood Pressure 142/104 H Blood Pressure Mean 116 Blood Pressure Source Monitor Blood Pressure Position Sitting Blood Pressure Location Left Forearm Oxygen Delivery Method Room Air Weight Weight: 118.026 kg Body Mass Index (BMI) 47.5 Physical Exam Const alert, oriented x3 and no apparent distress General Appearance: cooperative and comfortable HEENT normocephalic and head/scalp atraumatic Resp normal respiratory effort Effort and Inspection: able to speak in complete sentences Cardio regular rate and regular rhythm Skin Wounds: wounds noted Wound Narrative: measurements as in clinical panel, pink and healthy appearing surgical wound of mid-abdomen with granulation tissue throughout Psych mental status grossly normal, thought process normal, cooperative and affect normal Debridement Note Debridement Note Wound debrided: mid abdomen Laterality: Not Applicable Type of Debridement: Excisional debridement Anesthesia Used: 4% Lidocaine Solution and 5% Lidocaine Gel Depth: Down to and including healthy tissue and in the subcutaneous layer Percentage of wound debrided: 100 Instrument Used: 5mm curette Tissue Removed: Yellow slough, devitalized tissue Severity: Fat Layer Exposed Amount of bleeding with debridement: Mild Bleeding Controlled with: Compression and gauze Patient tolerated procedure: Patient tolerated procedure well Post-Debridement Measurements and Additional Note: Post-Debridement Measurements/Treatment BART - Nurse 1 - General Ulcer Assessment Start: 06/09/25 07:59 Freq: Status: Active Protocol: RAHEEM Activity Type Activity Date Activity User E-sign Co-sign Detail Recorded Client Recorded Date Recorded By Document 06/09/25 08:17 DL [id number] 06/09/25 08:33 DL Document 06/18/25 09:48 DS [id number] 06/18/25 10:09 DS 06/09/25 06/18/25 08:17 09:48 WC - Today's Visit Information Type of service Initial Visit Follow-up Visit (Physician/[facility] ) Arrival Mode Ambulatory Ambulatory Transfer Assistance None Patient Identification Verified (Name & Yes Yes ) Patient Requires Transmission-Based No No Precautions Safety Precautions Fall Prevention Height and Weight Height 5 ft 2 in Weight 118.026 kg Weight in Pounds 260.2 lbs Body Mass Index (BMI) 47.5 47.5 BMI Classification Obese Obese Vital Signs Temperature (97.8 F-99.1 F) 98.2 F 98.0 F Temperature Source Temporal Temporal Pulse Rate (60-100) 87 100 Pulse Location Monitor Monitor Respiratory Rate (12-18) 14 185 H Respiratory rate source Observation Observation Oxygen Delivery Method Room Air Blood Pressure (90/60-120/80) 123/89 H 142/104 H Blood Pressure Mean (mm Hg) 100 116 Source Monitor Monitor Position Sitting Blood Pressure Location Left Forearm History Since Last Visit- (Skip if this is Patient's initial visit) Have you changed medications since your No last visit? Any new allergies or adverse reactions No Had a fall/change in ADL's that may No increase risk of falls Signs or symptoms of abuse and/or No neglect since last visit Have you been in the hospital since your No last visit? Has dressing in place as prescribed Yes Has compression in place as prescribed N/A Has offloadiing in place as prescribed N/A Experienced any changes in pain level or Yes management Left Footwear Regular Shoe Right Footwear Regular Shoe Pain Scale: 0-10 Numeric Is Patient Pain Free? Yes Yes Communication Assessment Preferred language Ivorian Teaching Assessment Preferences Verbal,Written, Demonstration Barriers to Learning None Readiness To Learn Good Willingness to Engage in Self Management High Activies Readiness to Engage in Self Management High Activities Anxiety Level Calm Cooperation Cooperative Perception Coherent Interest in Health Problem Asks Questions Education Importance Acknowledges Need Does Patient Smoke tobacco or other No substances Smoking Status Former smoker Is Patient Diabetic No Teaching: Wound Center Discharge Instructions -Person Taught Patient *Welcome to the Wound Center -Person Taught Patient WC - Nurse 1 - General Ulcer Measurement Start: 06/09/25 07:59 Freq: Status: Active Protocol: Activity Type Activity Date Activity User E-sign Co-sign Detail Recorded Client Recorded Date Recorded By Document 06/09/25 08:17 DL [id number] 06/09/25 08:33 DL Document 06/18/25 09:48 DS [id number] 06/18/25 10:09 DS 06/09/25 06/18/25 08:17 09:48 Wound Center Nurse 1 #1 ABD -Current Size (cm) - Length 2 1.0 -Current Size (cm) - Width 11.6 9.8 -Current Size (cm) - Depth 2 1.0 -Total Square Cm 23.2 9.80 -Date of Last Picture (Recall this 06/18/25 field) -Photo Taken Yes Yes -Tunneling No -Undermining/Tunneling No -Circular Undermining No -Exudate Amt Medium Medium -Exudate Type Serosanguineous Serosanguineous -Wound Margin Distinct, Distinct, Outline Outline Attached Attached -Granulation Amt Large (67-100%) Large (67-100%) -Granulation Quality Red Red -Necrosis Amt None Present (0 %) -Structure Exposed N/A -Texture (Stephanie-wound Skin Appearance) Scarring,Rash Assessed -Moisture (Stephanie-wound Skin Appearance) Weeping Assessed -Color (Stephanie-wound Skin Appearance) No Abnormality Assessed -Temperature (Stephanie-wound Skin No Abnormality No Abnormality Appearance) (Pt Warm) (Pt Warm) -Tenderness on Palpation (Stephanie-wound No No Skin Appearance) -Ulcer Cleansing Soap and Water Soap and Water -Foul Odor after Cleansing No No -Anesthetic Used 4% Lidocaine 4% Lidocaine Solution Solution WC - Nurse 2 - General Ulcer CM Notes Start: 06/09/25 07:59 Freq: Status: Active Protocol: Activity Type Activity Date Activity User E-sign Co-sign Detail Recorded Client Recorded Date Recorded By Document 06/09/25 08:53 [facility] [id number] 06/09/25 09:06 [facility] Document 06/18/25 10:42 [id number] 06/18/25 10:53 06/09/25 06/18/25 08:53 10:42 Wound Center Nurse 2 #1 ABD -Time 08:54 10:45 -Correct Patient Yes Yes -Correct Side, Site, Position Yes Yes -Correct Procedure Yes Yes -Procedure Performed Yes Yes -Type of Procedure Debridement Debridement -Clinical Debridement Muscle / Fascia Subcutaneous -Tissue Removed Muscle,Fascia Subcutaneous -Post Debridement (cm) - Length 1 1.5 -Post Debridement (cm) - Width 13.5 11.0 -Post Debridement (cm) - Depth 2.5 1.0 -Total Square (Post) (cm) 13.5 16.50 -Area of Debridement (cm) - Length 1 1.5 -Area of Debridement (cm) - Width 13.5 11.0 -Total Square (Area) (cm) 13.5 16.50 -Tunneling No No -Undermining/Tunneling No No -Circular Undermining No No -Wound/Ulcer Outcome Not Healed Not Healed -Ulcer Cleansing Rinsed/ Rinsed/ Irrigated with Irrigated with Saline Saline -Foul Odor after Cleansing No No -Bioengineered Tissue No No -Bleeding Controlled with Pressure Pressure -Treatment Response Procedure Procedure Tolerated Well Tolerated Well -Offloading No -Debridement - Subq, 1st 20sq cm Yes -Debridement - Muscle / Fascia, 1st Yes 20sq cm Pain Scale: 0-10 Numeric Is Patient Pain Free? Yes Yes - Nurse 3 - General Ulcer D/C NN Start: 06/09/25 07:59 Freq: Status: Active Protocol: Activity Type Activity Date Activity User E-sign Co-sign Detail Recorded Client Recorded Date Recorded By Document 06/09/25 09:18 DL [id number] 06/09/25 09:19 DL Document 06/18/25 11:06 KW [id number] 06/18/25 11:41 KW 06/09/25 06/18/25 09:18 11:06 Wound Care Center Nurse 3 #1 ABD -Ulcer Cleansing Soap and Water -Foul Odor after Cleansing No -Pieces of Black Foam Inserted 1 -NPWT Application Charge NPWT & Debridement (nc ) -Setting (mmHg) 125 -Negative Pressure is Continuous -Primary Dressing Applied Hysept -Other Dressing Dakins -Primary Dressing Covered/Secured with Dry Gauze, Secured with Tape -Hysept 1 -Wound Comment(s) Vac Holiday Treatment Response Procedure Tolerated Well Pain Scale: 0-10 Numeric Is Patient Pain Free? Yes Yes - Visit Discharge Discharge Condition Stable Stable Ambulatory Status Ambulatory Ambulatory Transportation Private Auto Private Auto Medication Reconcilliation completed & No provided to patient/care provider Clinical Summary of Care Provided Yes Facility Type Home Health Orders Sent Yes Assessment/Plan Assessment/Plan (1) Subcutaneous abscess: CODE(S): L02.91 - Cutaneous abscess, unspecified QUALIFIERS: Site of cutaneous abscess: trunk Site of cutaneous abscess of trunk: abdominal wall Qualified Code(s): L02.211 - Cutaneous abscess of abdominal wall (2) Surgical wound, non healing: CODE(S): T81.89XA - Other complications of procedures, not elsewhere classified, initial encounter QUALIFIERS: Encounter type: initial encounter Qualified Code(s): T81.89XA - Other complications of procedures, not elsewhere classified, initial encounter (3) Skin ulcer of abdominal wall with fat layer exposed: CODE(S): L98.492 - Non-pressure chronic ulcer of skin of other sites with fat layer exposed PLAN: Plan Debridement performed today in clinic as annotated above. At home wound-care instructions: Wound vac will be applied and set to a negative pressure setting of 125 mmHg. It will be changed on Saturday, Saturday and Saturday. Keep dressing clean and dry. Off-loading: The patient was instructed to avoid pressure and friction on the affected areas. Reposition every 2 hours at minimum. Avoid prolonged standing and/or dangling of legs. When seated, feet should be elevated at chest level. Frequent ambulation is encouraged. Diet: Patient encouraged to increase protein intake while taking caution to avoid high carbohydrate and/or sugar intake. Labs/cultures/imaging: Culture from 06/09/25 was positive for anaerobic bacteria and rare growth of Staph, Morganella, E. faecalis and Corynebacterium. She was started on Ciprofloxacin to cover the Morganella morganii and will continue Flagyl. She will take Fluconazole once weekly. Will reassess with wound culture next Saturday and if still positive for E. faecalis will treat her with Linezolid. Follow-up: Return in 1 week for wound care follow up. Return sooner or report to the emergency room should symptoms worsen, or new symptoms arise. Note: [employer] speech recognition icu staff nurse software was used to create portions of this document. Sound-alike and misspelled words, as well as other icu staff nurse errors may be contained in the documentation.
[2025-06-25 11:15] VITALS: BP 139/77; RESP 18; TEMP 36.4; BMI 47.5
--- NOTE | 2025-06-25 13:20 | PCM.WC.PN ---
History of Present Illness Date of Service: 06/25/25 Chief Complaint: Surgical abdominal wound s/p abscess drainage History of Wound: Gunjan is a pleasant 34-year-old white female that had a on May 12, 2025. The wound became infected and she developed an abscess which was drained by Dr. Hernandez via re-opening the incision on 05/27/25. A wound vac was placed to help heal the surgical incision prior to discharge on 05/28/25. She was treated with IV antibiotics initially and discharged on Bactrim DS. She did develop a yeast infection of the skin surrounding the ulcer and was started on Fluconazole on 06/05/25. She was seen at the wound center for follow up on 06/09/25 by Keysha Carr CNP and a wound culture was completed which showed Morganella morganii, Staph epidermidis, Corynebacterium, and E. faecalis in very rare amounts as well as anaerobic bacteria. She was started on Flagyl for treatment of the anaerobic bacteria. She has been packing the wound with Dakins wet to dry dressings to give her skin a chance to heal from the yeast infection and has been tolerating this treatment well. She denies any fever, chills, increased drainage, erythema or odor. Objective Data Objective Data Vital Signs: Vital Signs Temp Pulse Resp BP O2 Del Method 97.5 F L 100 18 139/77 H Room Air 06/25/25 11:15 06/18/25 09:48 06/25/25 11:15 06/25/25 11:15 06/25/25 11:15 Oxygen Delivery Method Room Air Weight: 118.026 kg Body Mass Index (BMI) 47.5 Lab / Micro Data Micro: Microbiology 06/09/25 08:56 Wound - Abdominal Gram Stain - Final 06/09/25 08:56 Wound - Abdominal Wound Culture - Final Morganella morganii sp morgani Staphylococcus epidermidis Corynebacterium amycolatum Enterococcus faecalis 06/09/25 08:56 Wound - Abdominal Anaerobic Culture - Final Prevotella bivia Anaerobic cocci Physical Exam Const alert, oriented x3 and no apparent distress General Appearance: cooperative and comfortable HEENT normocephalic and head/scalp atraumatic Resp normal respiratory effort Effort and Inspection: able to speak in complete sentences Cardio regular rate and regular rhythm Skin Wounds: wounds noted Wound Narrative: measurements as in clinical panel, pink and healthy appearing surgical wound of mid-abdomen with granulation tissue throughout, left abdomen superior to wound there is an area of dense tissue which is likely resolving inflammation and scarring from seroma/abscess Psych mental status grossly normal, thought process normal, cooperative and affect normal Debridement Note Debridement Note Wound debrided: mid abdomen Laterality: Not Applicable Type of Debridement: Excisional debridement Anesthesia Used: 4% Lidocaine Solution and 5% Lidocaine Gel Depth: Down to and including healthy tissue and in the subcutaneous layer Percentage of wound debrided: 100 Instrument Used: 3mm curette Tissue Removed: Yellow slough, devitalized tissue Severity: Fat Layer Exposed Amount of bleeding with debridement: Mild Bleeding Controlled with: Compression and gauze Patient tolerated procedure: Patient tolerated procedure well Post-Debridement Measurements and Additional Note: Post-Debridement Measurements/Treatment - Nurse 1 - General Ulcer Assessment Start: 06/09/25 07:59 Freq: Status: Active Protocol: RAHEEM Activity Type Activity Date Activity User E-sign Co-sign Detail Recorded Client Recorded Date Recorded By Document 06/09/25 08:17 DL [id number] 06/09/25 08:33 DL Document 06/18/25 09:48 DS [id number] 06/18/25 10:09 DS Document 06/25/25 11:15 DS [id number] 06/25/25 11:27 DS 06/09/25 06/18/25 06/25/25 08:17 09:48 11:15 - Today's Visit Information Type of service Initial Visit Follow-up Visit Follow-up Visit (Physician/MECHANICAL ENGINEERING OFFICER (Physician/MECHANICAL ENGINEERING OFFICER ) ) Arrival Mode Ambulatory Ambulatory Ambulatory Transfer Assistance None Patient Identification Verified (Name & Yes Yes Yes ) Patient Requires Transmission-Based No No No Precautions Safety Precautions Fall Prevention Fall Prevention Height and Weight Height 5 ft 2 in Weight 118.026 kg Weight in Pounds 260.2 lbs Body Mass Index (BMI) 47.5 47.5 47.5 BMI Classification Obese Obese Obese Vital Signs Temperature (97.8 F-99.1 F) 98.2 F 98.0 F 97.5 F L Temperature Source Temporal Temporal Temporal Pulse Rate (60-100) 87 100 Pulse Location Monitor Monitor Monitor Respiratory Rate (12-18) 14 185 H 18 Respiratory rate source Observation Observation Observation Oxygen Delivery Method Room Air Room Air Blood Pressure (90/60-120/80) 123/89 H 142/104 H 139/77 H Blood Pressure Mean (mm Hg) 100 116 97 Source Monitor Monitor Monitor Position Sitting Sitting Blood Pressure Location Left Forearm Left Arm History Since Last Visit- (Skip if this is Patient's initial visit) Have you changed medications since your No No last visit? Any new allergies or adverse reactions No No Had a fall/change in ADL's that may No No increase risk of falls Signs or symptoms of abuse and/or No No neglect since last visit Have you been in the hospital since your No No last visit? Has dressing in place as prescribed Yes Yes Has compression in place as prescribed N/A N/A Has offloadiing in place as prescribed N/A N/A Experienced any changes in pain level or Yes Yes management Left Footwear Regular Shoe Regular Shoe Right Footwear Regular Shoe Regular Shoe Pain Scale: 0-10 Numeric Is Patient Pain Free? Yes Yes Yes Communication Assessment Preferred language Yi Teaching Assessment Preferences Verbal,Written, Demonstration Barriers to Learning None Readiness To Learn Good Willingness to Engage in Self Management High Activies Readiness to Engage in Self Management High Activities Anxiety Level Calm Cooperation Cooperative Perception Coherent Interest in Health Problem Asks Questions Education Importance Acknowledges Need Does Patient Smoke tobacco or other No substances Smoking Status Former smoker Is Patient Diabetic No Teaching: Wound Center Discharge Instructions -Person Taught Patient *Welcome to the Wound Center -Person Taught Patient WC - Nurse 1 - General Ulcer Measurement Start: 06/09/25 07:59 Freq: Status: Active Protocol: Activity Type Activity Date Activity User E-sign Co-sign Detail Recorded Client Recorded Date Recorded By Document 06/09/25 08:17 DL [id number] 06/09/25 08:33 DL Document 06/18/25 09:48 DS [id number] 06/18/25 10:09 DS Document 06/25/25 11:15 DS [id number] 06/25/25 11:27 DS 06/09/25 06/18/25 06/25/25 08:17 09:48 11:15 Wound Center Nurse 1 #1 ABD -Current Size (cm) - Length 2 1.0 0.9 -Current Size (cm) - Width 11.6 9.8 9.0 -Current Size (cm) - Depth 2 1.0 0.5 -Total Square Cm 23.2 9.80 8.10 -Date of Last Picture (Recall this 06/18/25 06/25/25 field) -Photo Taken Yes Yes Yes -Tunneling No No -Undermining/Tunneling No No -Circular Undermining No No -Exudate Amt Medium Medium None Present -Exudate Type Serosanguineous Serosanguineous -Wound Margin Distinct, Distinct, Outline Outline Attached Attached -Granulation Amt Large (67-100%) Large (67-100%) Large (67-100%) -Granulation Quality Red Red Veteran -Necrosis Amt None Present (0 %) -Structure Exposed N/A -Texture (Stephanie-wound Skin Appearance) Scarring,Rash Assessed Assessed -Moisture (Stephanie-wound Skin Appearance) Weeping Assessed Assessed -Color (Stephanie-wound Skin Appearance) No Abnormality Assessed Assessed -Temperature (Stephanie-wound Skin No Abnormality No Abnormality No Abnormality Appearance) (Pt Warm) (Pt Warm) (Pt Warm) -Tenderness on Palpation (Stephanie-wound No No No Skin Appearance) -Ulcer Cleansing Soap and Water Soap and Water Soap and Water -Foul Odor after Cleansing No No No -Anesthetic Used 4% Lidocaine 4% Lidocaine 5% Lidocaine Solution Solution Gel WC - Nurse 2 - General Ulcer CM Notes Start: 06/09/25 07:59 Freq: Status: Active Protocol: Activity Type Activity Date Activity User E-sign Co-sign Detail Recorded Client Recorded Date Recorded By Document 06/09/25 08:53 [facility] [id number] 06/09/25 09:06 [facility] Document 06/18/25 10:42 [id number] 06/18/25 10:53 Document 06/25/25 11:33 [id number] 06/25/25 11:45 06/09/25 06/18/25 06/25/25 08:53 10:42 11:33 Wound Center Nurse 2 #1 ABD -Time 08:54 10:45 11:33 -Correct Patient Yes Yes Yes -Correct Side, Site, Position Yes Yes Yes -Correct Procedure Yes Yes Yes -Procedure Performed Yes Yes Yes -Type of Procedure Debridement Debridement Debridement -Clinical Debridement Muscle / Fascia Subcutaneous Subcutaneous -Tissue Removed Muscle,Fascia Subcutaneous Subcutaneous -Post Debridement (cm) - Length 1 1.5 1.6 -Post Debridement (cm) - Width 13.5 11.0 9.5 -Post Debridement (cm) - Depth 2.5 1.0 0.8 -Total Square (Post) (cm) 13.5 16.50 15.20 -Area of Debridement (cm) - Length 1 1.5 1.6 -Area of Debridement (cm) - Width 13.5 11.0 9.5 -Total Square (Area) (cm) 13.5 16.50 15.20 -Tunneling No No No -Undermining/Tunneling No No No -Circular Undermining No No No -Wound/Ulcer Outcome Not Healed Not Healed Not Healed -Ulcer Cleansing Rinsed/ Rinsed/ Rinsed/ Irrigated with Irrigated with Irrigated with Saline Saline Saline -Foul Odor after Cleansing No No No -Bioengineered Tissue No No No -Bleeding Controlled with Pressure Pressure Pressure -Treatment Response Procedure Procedure Procedure Tolerated Well Tolerated Well Tolerated Well -Offloading No No -Debridement - Subq, 1st 20sq cm Yes Yes -Debridement - Muscle / Fascia, 1st Yes 20sq cm Pain Scale: 0-10 Numeric Is Patient Pain Free? Yes Yes Yes - Nurse 3 - General Ulcer D/C NN Start: 06/09/25 07:59 Freq: Status: Active Protocol: Activity Type Activity Date Activity User E-sign Co-sign Detail Recorded Client Recorded Date Recorded By Document 06/09/25 09:18 DL [id number] 06/09/25 09:19 DL Document 06/18/25 11:06 KW [id number] 06/18/25 11:41 KW Document 06/25/25 12:26 RB [id number] 06/25/25 12:27 RB 06/09/25 06/18/25 06/25/25 09:18 11:06 12:26 Wound Care Center Nurse 3 #1 ABD -Ulcer Cleansing Soap and Water Rinsed/ Irrigated with Saline -Foul Odor after Cleansing No -Negative Pressure Wound Therapy Continue -Pieces of Black Foam Inserted 1 1 -NPWT Application Charge NPWT & NPWT & Debridement (nc Debridement (nc ) ) -Setting (mmHg) 125 125 -Negative Pressure is Continuous Continuous -Primary Dressing Applied Hysept -Other Dressing Dakins -Primary Dressing Covered/Secured with Dry Gauze, Secured with Tape -Hysept 1 -Wound Comment(s) Vac Holiday Stephanie-Wound Care Barrier Treatment Response Procedure Procedure Tolerated Well Tolerated Well Pain Scale: 0-10 Numeric Is Patient Pain Free? Yes Yes Yes WC - Visit Discharge Discharge Condition Stable Stable Stable Ambulatory Status Ambulatory Ambulatory Ambulatory Transportation Private Auto Private Auto Private Auto Medication Reconcilliation completed & No No provided to patient/care provider Clinical Summary of Care Provided Yes Yes Facility Type Home Health Orders Sent Yes Assessment/Plan Assessment/Plan (1) Subcutaneous abscess: CODE(S): L02.91 - Cutaneous abscess, unspecified QUALIFIERS: Site of cutaneous abscess: trunk Site of cutaneous abscess of trunk: abdominal wall Qualified Code(s): L02.211 - Cutaneous abscess of abdominal wall (2) Surgical wound, non healing: CODE(S): T81.89XA - Other complications of procedures, not elsewhere classified, initial encounter QUALIFIERS: Encounter type: initial encounter Qualified Code(s): T81.89XA - Other complications of procedures, not elsewhere classified, initial encounter (3) Skin ulcer of abdominal wall with fat layer exposed: CODE(S): L98.492 - Non-pressure chronic ulcer of skin of other sites with fat layer exposed PLAN: Plan Debridement performed today in clinic as annotated above. At home wound-care instructions: Wound vac will be reapplied and set to a negative pressure setting of 125 mmHg. It will be changed on Saturday, Saturday and Saturday. Keep dressing clean and dry. Off-loading: The patient was instructed to avoid pressure and friction on the affected areas. Reposition every 2 hours at minimum. Avoid prolonged standing and/or dangling of legs. When seated, feet should be elevated at chest level. Frequent ambulation is encouraged. Diet: Patient encouraged to increase protein intake while taking caution to avoid high carbohydrate and/or sugar intake. Labs/cultures/imaging: Culture from 06/09/25 was positive for anaerobic bacteria and rare growth of Staph, Morganella, E. faecalis and Corynebacterium. She was started on Ciprofloxacin to cover the Morganella morganii and will continue Flagyl. She will take Fluconazole once weekly. Wound culture taken today and if still positive for E. faecalis will treat her with Linezolid. Follow-up: Return in 1 week for wound care follow up. Return sooner or report to the emergency room should symptoms worsen, or new symptoms arise. Note: [employer] speech recognition mergers and acquisitions banker software was used to create portions of this document. Sound-alike and misspelled words, as well as other mergers and acquisitions banker errors may be contained in the documentation.
== END 2025-06-29 23:59 | disposition home or self-care (01) ==
LOC: WC 11:00
PROVIDERS: PCP Internal Medicine; Referring Provider Surgery; Visit Provider Family Medicine
DX: O86.00 Infection of obstetric surgical wound, unspecified (principal); L98.492 Non-pressure chronic ulcer of skin of other sites with fat layer exposed; L02.211 Cutaneous abscess of abdominal wall; Z87.891 Personal history of nicotine dependence; K21.9 Gastro-esophageal reflux disease without esophagitis; B37.9 Candidiasis, unspecified; T81.89XA Other complications of procedures, not elsewhere classified, initial encounter; Y83.8 Other surgical procedures as the cause of abnormal reaction of the patient, or of later complication, without mention of misadventure at the time of the procedure; Z79.899 Other long term (current) drug therapy; B95.7 Other staphylococcus as the cause of diseases classified elsewhere; B96.89 Other specified bacterial agents as the cause of diseases classified elsewhere
CPT/HCPCS: 11042; 11043; 87070; 87075; 87077; 87186; 87205; 99214; G0463

== ENCOUNTER 2025-07-09 10:45 | Outpatient (RCR) | payer BC, SELFPAY ==
[2025-07-02 10:53] VITALS: BP 127/91; PULSE 75; RESP 18; TEMP 36.4
--- NOTE | 2025-07-02 14:24 | PN.PCM_ITS ---
History of Present Illness Date of Service: 07/02/25 Chief Complaint: Surgical abdominal wound s/p abscess drainage History of Wound: Gunjan is a pleasant 34-year-old white female that had a C- section on May 12, 2025. The wound became infected and she developed an abscess which was drained by Dr. Hernandez via re-opening the incision on 05/27/25. A wound vac was placed to help heal the surgical incision prior to discharge on 05/28/25. She was treated with IV antibiotics initially and discharg ed on Bactrim DS. She did develop a yeast infection of the skin surrounding the ulcer and was started on Fluconazole on 06/05/25. She was seen at the wound center for follow up on 06/09/25 by Keysha Carr CNP and a wound culture was completed which showed Morganella morganii, Staph epidermidis, Corynebacterium, and E. faecalis in very rare amounts as well as anaerobic bacteria. She was started on Flagyl for treatment of the anaerobic bacteria. She has been packing the wound with Dakins wet to dry dressings to give her skin a chance to heal from the yeast infection and has been tolerating this treatment well. She denies any fever, chills, increased drainage, erythema or odor. Subjective Subjective Gunjan has tolerated wound vac and there is improvement in her abdominal ulcer. She completed Flagyl and wound cultures done 06/25/25 showed additional anaerobic bacteria and persistent E. faecalis. She was started on Augmentin yesterday. She denies increased drainage or pain or odor. Objective Data Objective Data Vital Signs: Vital Signs Temp Pulse Resp BP 97.5 F L 75 18 127/91 H 07/02/25 10:53 07/02/25 10:53 07/02/25 10:53 07/02/25 10:53 Physical Exam Const alert, oriented x3 and no apparent distress General Appearance: cooperative and comfortable HEENT normocephalic and head/scalp atraumatic Resp normal respiratory effort Effort and Inspection: able to speak in complete sentences Cardio regular rate and regular rhythm Skin Wounds: wounds noted Wound Narrative: measurements as in clinical panel, pink and healthy appearing surgical wound of mid-abdomen with granulation tissue throughout, left abdomen superior to wound there is an area of dense tissue which is likely resolving inflammation and scarring from seroma/abscess Psych mental status grossly normal, thought process normal, cooperative and affect normal Debridement Note Debridement Note Wound debrided: mid abdomen Laterality: Not Applicable Type of Debridement: Excisional debridement Anesthesia Used: 4% Lidocaine Solution and 5% Lidocaine Gel Depth: Down to and including healthy tissue and in the subcutaneous layer Percentage of wound debrided: 100 Instrument Used: 3mm curette Tissue Removed: Yellow slough, devitalized tissue Severity: Fat Layer Exposed Amount of bleeding with debridement: Mild Bleeding Controlled with: Compression and gauze Patient tolerated procedure: Patient tolerated procedure well Post-Debridement Measurements and Additional Note: Post-Debridement Measurements/Treatment - Nurse 1 - General Ulcer Assessment Start: 07/02/25 10:53 Freq: Status: Active Protocol: RAHEEM Activity Type Activity Date Activity User E-sign Co-sign Detail Recorded Client Recorded Date Recorded By Document 07/02/25 10:53 COY [id number] 07/02/25 10:57 RB 07/02/25 10:53 WC - Today's Visit Information Type of service Follow-up Visit (Physician/INSTRUMENT TECH ) Arrival Mode Ambulatory Transfer Assistance None Patient Identification Verified (Name & Yes ) Patient Requires Transmission-Based No Precautions Vital Signs Temperature (97.8 F-99.1 F) 97.5 F L Temperature Source Temporal Pulse Rate (60-100) 75 Pulse Location Monitor Respiratory Rate (12-18) 18 Respiratory rate source Observation Blood Pressure (90/60-120/80) 127/91 H Blood Pressure Mean (mm Hg) 103 Source Monitor Position Semi-Fowlers Blood Pressure Location Left Arm History Since Last Visit- (Skip if this is Patient's initial visit) Have you changed medications since your No last visit? Any new allergies or adverse reactions No Had a fall/change in ADL's that may No increase risk of falls Signs or symptoms of abuse and/or No neglect since last visit Have you been in the hospital since your No last visit? Has dressing in place as prescribed Yes Has compression in place as prescribed No Has offloadiing in place as prescribed No Experienced any changes in pain level or No management Pain Scale: 0-10 Numeric Is Patient Pain Free? Yes BART Cook Nurse 1 - General Ulcer Measurement Start: 07/02/25 10:53 Freq: Status: Active Protocol: Activity Type Activity Date Activity User E-sign Co-sign Detail Recorded Client Recorded Date Recorded By Document 07/02/25 10:53 COY [id number] 07/02/25 10:57 RB 07/02/25 10:53 Wound Center Nurse 1 #1 ABD -Combined with other wound No -Current Size (cm) - Length 0.5 -Current Size (cm) - Width 2 -Current Size (cm) - Depth 0.1 -Total Square Cm 1.0 -Photo Taken Yes -Tunneling No -Undermining/Tunneling No -Circular Undermining No -Exudate Amt Medium -Exudate Type Serosanguineous -Wound Margin Distinct, Outline Attached -Granulation Amt Medium (34-66%) -Granulation Quality Mullin -Slough/Fibrin Yes -Necrosis Amt Medium (34-66%) -Necrotic Tissue Type Adherent Slough -Structure Exposed N/A -Texture (Stephanie-wound Skin Appearance) Assessed -Moisture (Stephanie-wound Skin Appearance) Assessed -Color (Stephanie-wound Skin Appearance) Assessed -Temperature (Stephanie-wound Skin No Abnormality Appearance) (Pt Warm) -Tenderness on Palpation (Stephanie-wound No Skin Appearance) -Ulcer Cleansing Wound Cleanser -Foul Odor after Cleansing No -Anesthetic Used 5% Lidocaine Gel WC - Nurse 2 - General Ulcer CM Notes Start: 07/02/25 10:53 Freq: Status: Active Protocol: Activity Type Activity Date Activity User E-sign Co-sign Detail Recorded Client Recorded Date Recorded By Document 07/02/25 11:05 [id number] 07/02/25 11:19 07/02/25 11:05 Wound Center Nurse 2 -Time 11:05 -Correct Patient Yes -Correct Side, Site, Position Yes -Correct Procedure Yes -Procedure Performed Yes -Type of Procedure Debridement -Clinical Debridement Subcutaneous -Tissue Removed Subcutaneous -Post Debridement (cm) - Length 0.5 -Post Debridement (cm) - Width 4.0 -Post Debridement (cm) - Depth 0.2 -Total Square (Post) (cm) 2.00 -Area of Debridement (cm) - Length 0.5 -Area of Debridement (cm) - Width 4.0 -Total Square (Area) (cm) 2.00 -Tunneling No -Undermining/Tunneling No -Circular Undermining No -Wound/Ulcer Outcome Not Healed -Ulcer Cleansing Rinsed/ Irrigated with Saline -Foul Odor after Cleansing No -Bioengineered Tissue No -Bleeding Controlled with Pressure -Treatment Response Procedure Tolerated Well -Offloading No -Debridement - Subq, 1st 20sq cm Yes Pain Scale: 0-10 Numeric Is Patient Pain Free? Yes - Nurse 3 - General Ulcer D/C NN Start: 07/02/25 10:53 Freq: Status: Active Protocol: Activity Type Activity Date Activity User E-sign Co-sign Detail Recorded Client Recorded Date Recorded By Document 07/02/25 11:34 RB [id number] 07/02/25 11:34 RB 07/02/25 11:34 Wound Care Center Nurse 3 #1 ABD -Ulcer Cleansing Wound Cleanser -Primary Dressing Applied Aquacel AG 4x4 -Other Dressing ABD -Primary Dressing Covered/Secured with Secured with Tape -Aquacel AG 4x4 1 Treatment Response Procedure Tolerated Well Pain Scale: 0-10 Numeric Is Patient Pain Free? Yes WC - Visit Discharge Discharge Condition Stable Ambulatory Status Ambulatory Transportation Private Auto Medication Reconcilliation completed & No provided to patient/care provider Clinical Summary of Care Provided Yes Assessment/Plan Assessment/Plan (1) Subcutaneous abscess: CODE(S): L02.91 - Cutaneous abscess, unspecified QUALIFIERS: Site of cutaneous abscess: trunk Site of cutaneous abscess of trunk: abdominal wall Qualified Code(s): L02.211 - Cutaneous abscess of abdominal wall (2) Surgical wound, non healing: CODE(S): T81.89XA - Other complications of procedures, not elsewhere classified, initial encounter QUALIFIERS: Encounter type: initial encounter Qualified Code(s): T81.89XA - Other complications of procedures, not elsewhere classified, initial encounter (3) Skin ulcer of abdominal wall with fat layer exposed: CODE(S): L98.492 - Non-pressure chronic ulcer of skin of other sites with fat layer exposed PLAN: Plan Debridement performed today in clinic as annotated above. At home wound-care instructions: Wound vac will be discontinued and she will apply Aquacel Ag to the ulcer every other day and cover with ABD. Keep dressing clean and dry. Off-loading: The patient was instructed to avoid pressure and friction on the affected areas. Reposition every 2 hours at minimum. Avoid prolonged standing and/or dangling of legs. When seated, feet should be elevated at chest level. Frequent ambulation is encouraged. Diet: Patient encouraged to increase protein intake while taking caution to avoid high carbohydrate and/or sugar intake. Labs/cultures/imaging: Culture from 06/09/25 was positive for anaerobic bacteria and rare growth of Staph, Morganella, E. faecalis and Corynebacterium. She was started on Ciprofloxacin to cover the Morganella morganii and will continue Flagyl. She will take Fluconazole once weekly. Wound culture was positive for E. faecalis and anaerobic bacteria. She was started on Augmentin. Follow-up: Return in 1 week for wound care follow up. Return sooner or report to the emergency room should symptoms worsen, or new symptoms arise. Note: [employer] speech recognition chocolate maker software was used to create porti ons of this document. Sound-alike and misspelled words, as well as other chocolate maker errors may be contained in the documentation.
--- NOTE | 2025-07-06 10:32 | WC ---
PHOTO-ABD 07/02/25
[2025-07-09 11:37] VITALS: BP 121/93; PULSE 79; RESP 18; TEMP 35.9
--- NOTE | 2025-07-09 14:55 | PN.PCM_ITS ---
History of Present Illness Date of Service: 07/09/25 Chief Complaint: Surgical abdominal wound s/p abscess drainage History of Wound: Gunjan is a pleasant 34-year-old white female that had a C- section on May 12, 2025. The wound became infected and she developed an abscess which was drained by Dr. Hernandez via re-opening the incision on 05/27/25. A wound vac was placed to help heal the surgical incision prior to discharge on 05/28/25. She was treated with IV antibiotics initially and discharg ed on Bactrim DS. She did develop a yeast infection of the skin surrounding the ulcer and was started on Fluconazole on 06/05/25. She was seen at the wound center for follow up on 06/09/25 by Keysha Carr CNP and a wound culture was completed which showed Morganella morganii, Staph epidermidis, Corynebacterium, and E. faecalis in very rare amounts as well as anaerobic bacteria. She was started on Flagyl for treatment of the anaerobic bacteria. She has been packing the wound with Dakins wet to dry dressings to give her skin a chance to heal from the yeast infection and has been tolerating this treatment well. She denies any fever, chills, increased drainage, erythema or odor. Subjective Subjective Gunjan has tolerated dressings with Aquacel. She is not having any drainage and believes her ulcer is healed. She denies increased drainage or pain or odor. Objective Data Objective Data Vital Signs: Vital Signs Temp Pulse Resp BP 96.6 F L 79 18 121/93 H 07/09/25 11:37 07/09/25 11:37 07/09/25 11:37 07/09/25 11:37 Physical Exam Const alert, oriented x3 and no apparent distress General Appearance: cooperative and comfortable HEENT normocephalic and head/scalp atraumatic Resp normal respiratory effort Effort and Inspection: able to speak in complete sentences Cardio regular rate and regular rhythm Skin Wounds: wounds noted Wound Narrative: epithelialized site of surgical incision without erythema Psych mental status grossly normal, thought process normal, cooperative and affect no rmal Debridement Note Debridement Note Wound debrided: mid abdomen Laterality: Not Applicable No debridement was completed: No debridement was completed today Post-Debridement Measurements and Additional Note: Post-Debridement Measurements/Treatment WC - Nurse 1 - General Ulcer Assessment Start: 07/02/25 10:53 Freq: Status: Active Protocol: [email or web address] Activity Type Activity Date Activity User E-sign Co-sign Detail Recorded Client Recorded Date Recorded By Document 07/02/25 10:53 COY [id number] 07/02/25 10:57 RB 07/02/25 10:53 - Today's Visit Information Type of service Follow-up Visit (Physician/DENTAL SERVICE CHIEF ) Arrival Mode Ambulatory Transfer Assistance None Patient Identification Verified (Name & Yes ) Patient Requires Transmission-Based No Precautions Vital Signs Temperature (97.8 F-99.1 F) 97.5 F L Temperature Source Temporal Pulse Rate (60-100) 75 Pulse Location Monitor Respiratory Rate (12-18) 18 Respiratory rate source Observation Blood Pressure (90/60-120/80) 127/91 H Blood Pressure Mean (mm Hg) 103 Source Monitor Position Semi-Fowlers Blood Pressure Location Left Arm History Since Last Visit- (Skip if this is Patient's initial visit) Have you changed medications since your No last visit? Any new allergies or adverse reactions No Had a fall/change in ADL's that may No increase risk of falls Signs or symptoms of abuse and/or No neglect since last visit Have you been in the hospital since your No last visit? Has dressing in place as prescribed Yes Has compression in place as prescribed No Has offloadiing in place as prescribed No Experienced any changes in pain level or No management Pain Scale: 0-10 Numeric Is Patient Pain Free? Yes - Nurse 1 - General Ulcer Measurement Start: 07/02/25 10:53 Freq: Status: Active Protocol: Activity Type Activity Date Activity User E-sign Co-sign Detail Recorded Client Recorded Date Recorded By Document 07/02/25 10:53 COY [id number] 07/02/25 10:57 RB 07/02/25 10:53 Wound Center Nurse 1 #1 ABD -Combined with other wound No -Current Size (cm) - Length 0.5 -Current Size (cm) - Width 2 -Current Size (cm) - Depth 0.1 -Total Square Cm 1.0 -Photo Taken Yes -Tunneling No -Undermining/Tunneling No -Circular Undermining No -Exudate Amt Medium -Exudate Type Serosanguineous -Wound Margin Distinct, Outline Attached -Granulation Amt Medium (34-66%) -Granulation Quality [place] -Slough/Fibrin Yes -Necrosis Amt Medium (34-66%) -Necrotic Tissue Type Adherent Slough -Structure Exposed N/A -Texture (Stephanie-wound Skin Appearance) Assessed -Moisture (Stephanie-wound Skin Appearance) Assessed -Color (Stephanie-wound Skin Appearance) Assessed -Temperature (Stephanie-wound Skin No Abnormality Appearance) (Pt Warm) -Tenderness on Palpation (Stephanie-wound No Skin Appearance) -Ulcer Cleansing Wound Cleanser -Foul Odor after Cleansing No -Anesthetic Used 5% Lidocaine Gel WC - Nurse 2 - General Ulcer CM Notes Start: 07/02/25 10:53 Freq: Status: Active Protocol: Activity Type Activity Date Activity User E-sign Co-sign Detail Recorded Client Recorded Date Recorded By Document 07/02/25 11:05 [id number] 07/02/25 11:19 07/02/25 11:05 Wound Center Nurse 2 -Time 11:05 -Correct Patient Yes -Correct Side, Site, Position Yes -Correct Procedure Yes -Procedure Performed Yes -Type of Procedure Debridement -Clinical Debridement Subcutaneous -Tissue Removed Subcutaneous -Post Debridement (cm) - Length 0.5 -Post Debridement (cm) - Width 4.0 -Post Debridement (cm) - Depth 0.2 -Total Square (Post) (cm) 2.00 -Area of Debridement (cm) - Length 0.5 -Area of Debridement (cm) - Width 4.0 -Total Square (Area) (cm) 2.00 -Tunneling No -Undermining/Tunneling No -Circular Undermining No -Wound/Ulcer Outcome Not Healed -Ulcer Cleansing Rinsed/ Irrigated with Saline -Foul Odor after Cleansing No -Bioengineered Tissue No -Bleeding Controlled with Pressure -Treatment Response Procedure Tolerated Well -Offloading No -Debridement - Subq, 1st 20sq cm Yes Pain Scale: 0-10 Numeric Is Patient Pain Free? Yes - Nurse 3 - General Ulcer D/C NN Start: 07/02/25 10:53 Freq: Status: Active Protocol: Activity Type Activity Date Activity User E-sign Co-sign Detail Recorded Client Recorded Date Recorded By Document 07/02/25 11:34 RB [id number] 07/02/25 11:34 RB 07/02/25 11:34 Wound Care Center Nurse 3 #1 ABD -Ulcer Cleansing Wound Cleanser -Primary Dressing Applied Aquacel AG 4x4 -Other Dressing ABD -Primary Dressing Covered/Secured with Secured with Tape -Aquacel AG 4x4 1 Treatment Response Procedure Tolerated Well Pain Scale: 0-10 Numeric Is Patient Pain Free? Yes WC - Visit Discharge Discharge Condition Stable Ambulatory Status Ambulatory Transportation Private Auto Medication Reconcilliation completed & No provided to patient/care provider Clinical Summary of Care Provided Yes Assessment/Plan Assessment/Plan (1) Subcutaneous abscess: CODE(S): L02.91 - Cutaneous abscess, unspecified QUALIFIERS: Site of cutaneous abscess: trunk Site of cutaneous abscess of trunk: abdominal wall Qualified Code(s): L02.211 - Cutaneous abscess of abdominal wall (2) Surgical wound, non healing: CODE(S): T81.89XA - Other complications of procedures, not elsewhere classified, initial encounter QUALIFIERS: Encounter type: initial encounter Qualified Code(s): T81.89XA - Other complications of procedures, not elsewhere classified, initial encounter (3) Skin ulcer of abdominal wall with fat layer exposed: CODE(S): L98.492 - Non-pressure chronic ulcer of skin of other sites with fat layer exposed PLAN: Plan Evaluation performed today in clinic as annotated above. At home wound-care instructions: Gunjan's ulcer is healed. She was advised to keep the scar site from drying out with using A and D or Aquaphor and to avoid too much moisture as it is in her skin fold. Off-loading: The patient was instructed to avoid pressure and friction on the affected areas. Reposition every 2 hours at minimum. Avoid prolonged standing and/or dangling of legs. When seated, feet should be elevated at chest level. Frequent ambulation is encouraged. Diet: Patient encouraged to increase protein intake while taking caution to avoid high carbohydrate and/or sugar intake. Labs/cultures/imaging: Culture from 06/09/25 was positive for anaerobic bacteria and rare growth of Staph, Morganella, E. faecalis and Corynebacterium. She was started on Ciprofloxacin to cover the Morganella morganii and will continue Flagyl. She will take Fluconazole once weekly. Wound culture was positive for E. faecalis and anaerobic bacteria. She was started on Augmentin. Follow-up: She is discharged from treatment at the wound center today. She was advised to report to her PCP or the emergency room should symptoms worsen, or new symptoms arise. Note: Ale[employer] speech recognition agricultural services director software was used to create portions of this document. Sound-alike and misspelled words, as well as other agricultural services director errors may be contained in the documentation.
== END 2025-07-09 11:57 | disposition home or self-care (01) ==
LOC: WC 10:45
PROVIDERS: PCP Internal Medicine; Referring Provider Surgery; Visit Provider Family Medicine
DX: O86.00 Infection of obstetric surgical wound, unspecified (principal); L98.492 Non-pressure chronic ulcer of skin of other sites with fat layer exposed; B37.2 Candidiasis of skin and nail; L02.211 Cutaneous abscess of abdominal wall; T81.89XA Other complications of procedures, not elsewhere classified, initial encounter; Y83.8 Other surgical procedures as the cause of abnormal reaction of the patient, or of later complication, without mention of misadventure at the time of the procedure; B95.7 Other staphylococcus as the cause of diseases classified elsewhere; B96.89 Other specified bacterial agents as the cause of diseases classified elsewhere
CPT/HCPCS: 11042; 99213; G0463

== ENCOUNTER → 2025-08-02 | Outpatient (CLI) | payer BC, SELFPAY ==
--- NOTE | 2025-08-02 07:23 | US_ITS ---
PROCEDURE: ABDOMEN LIMITED 08/02/2025 REASON FOR EXAM: PALPABLE LUMP ABOVE , RECENT INFECTION TECHNIQUE: Procedure Code: USABDL Modality: US Procedure: ABDOMEN LIMITED COMPARISON: Prior CT scan of the abdomen and pelvis dated May 24, 2025. FINDINGS: The palpable lump slightly cephalad to the scar was examined with ultrasound. This corresponds to a 5 cm x 1.3 cm by 3 cm heterogeneous solid and cystic density suggestive of possible resolving hematoma. US/Abdomen Limited IMPRESSION: Findings suggestive of resolving hematoma just cephalad to the scar. Reading Location: [id number]
--- OUTSIDE RECORDS SUMMARY | 2025-08-02 07:24 | XMS RPT_ITS | CCD ---
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 Edel Bullock Referring Provider [phone] Dr. Edel Bullock Other Provider Care Physician, [...] Provider Zander WOLFE, Dr. Jaffe Attending Provider [phone] Ld Fermin MD Emergency Provider Tashia WOLFE, Dr. Chiu Attending Provider [phone] Dr. Apple Lao MD Referring Provider Dr. Steffen Eisenberg MD Primary Care Provider [phone] Dr. Steffen Eisenberg MD Referring Provider Dr. Edel Bullock DO Attending Provider Kiley Jain CNM Attending Provider [phone]) Kiley Jain CNM Referring Provider 1(330) Faina WOLFE, Dr. Crowder Primary Care Provider 1( 30) Dr. Edel Bullock DO Referring Provider Faina WOLFE, Dr. Crowder Primary Care Provider 1(3 30) Faina WOLFE, Dr. Crowder Referring Provider Twan Diehl DO, Dr. Hollingsworth Attending Provider Twan Diehl DO, Dr. Hollingsworth Other Provider 1(3 30) Kiley Jain CNM Other Provider 1([phone]) Faina WOLFE, Dr. Crowder Primary Care Provider 1( 30) Faina WOLFE, Dr. Crowder Referring Provider Tashia WOLFE, Dr. Chiu Attending Provider EDEL DAMICO Referring Unavailab le FAINA STEFFEN G Primary Care Unavailable TANNA KIMBALL Attending Unavailable SAAD BRADLEY Attending Unavailable EDEL DAMICO Referring Unavailab le FAINA STEFFEN G Primary Care Unavailable EDEL DAMICO Referring Unavailab EDEL Norman Attending Unavailable FAINA STEFFEN G Primary Care Unavailable EDEL DAMICO Referring Unavailab EDEL Norman Attending Unavailable STEFFEN EISENBERG Primary Care Unavailable NO PRIMARY CARE, Primary Care Unavailable OSMANI LLANES Attending Unavailable EDEL DAMICO Referring Unavailab OSMANI Francisco [...] Attending Unavailable EDEL DAMICO Referring Unavailab le FAINA STEFFEN G Primary Care Unavailable TANNA KIMBALL Attending Unavailable Twan Diehl DO, Dr. Hollingsworth Admit Provider 1(3 30) Mariana Jonas CNM Attending Provider Dr. Pee Sargent DO Emergency Provider Rosetta JENKINS, Dr. Glasgow Emergency Provider Sharmaine WOLFE, Dr. Tomas Other Provider David WOLFE, Dr. Garrett Wilson Attending Provider Faina WOLFE, Dr. Crowder Primary Care Provider Faina WOLFE, Dr. Crowder Referring Provider Twan Diehl DO, Dr. Hollingsworth Attending Provider Wero JENKINS, Dr. Jay Emergency Provider Clau WOLFE, Dr. Richter Attending Provider Cat WOLFE, Dr. Ej Agudelo Referring Provider Bruno SURVEYOR ROD HELPER-C, Keysha Attending Provider David WOLFE, Dr. Garrett Wilson Referring Provider Bruno SURVEYOR ROD HELPER-C, Keysha Other Provider Faina WOLFE, Dr. Crowder Primary Care Physician [phone] Faina WOLFE, Dr. Crowder Referring Provider Tashia WOLFE, Dr. Chiu Attending Physician Dr. Apple Lao MD Referring Provider [phone] Kiley Jain CNM Attending Physician [phone] Kiley Jain CNM Referring Provider Dr. Edel Bullock DO Attending Physician Dr. Edel Bullock DO Referring Provider Dr. Edel Bullock DO Nurse Practitioner Kiley Jain CNM Nurse Practitioner Dr. Edel Bullock DO Admitting Physician Mariana Jonas CNM Attending Physician [phone] Dr. Pee Sargent DO Emergency Department Physi giovani Sharmaine WOLFE, Dr. Tomas Nurse Practitioner Clau WOLFE, Dr. Richter Attending Physician Cat WOLFE, Dr. Ej Agudelo Referring Provider David WOLFE, Dr. Garrett Wilson Attending Physician Wero JENKINS, Dr. Jay Attending Physician Wero JENKINS, Dr. Jay Emergency Department Physici an Bruno SURVEYOR ROD HELPER-C, Keysha Attending Physician Bruno SURVEYOR ROD HELPER-C, Keysha Nurse Practitioner David WOLFE, Dr. Garrett Wilson Referring Provider Seble JENKINS, Dr. Da Silva Attending Physician [phone] Faina WOLFE, Dr. Crowder Primary Care Physician [phone] Faina WOLFE, Dr. Crowder Referring Provider Tashia WOLFE, Dr. Chiu Attending Physician Seble JENKINS, Dr. Da Silva Attending Physician Faina WOLFE, Dr. Crowder Primary Care Physician Faina WOLFE, Dr. Crowder Referring Provider Dr. Edel Bullock DO Attending Physician Dr. Edel Bullock DO Referring Provider Kiley Jain CNM Attending Physician [phone] Kiley Jain CNM Referring Provider Edel Bullock Attending Edel Reyes Admitting Unavailabl e Edel Bullock Consulting Unavailabl e Faina, Steffen Primary Care Unavailable Edel Bullock Admitting Unavailhermes e Edel Bullock Attending Unavailabl e Edel Bullock Consulting Unavailabl e [place], Steffen Primary Care Unavailable Faina, Steffen Primary Care Unavailable Faina, Steffen Referring Unavailable Edel Bullock Attending Unavailabl e Shone Edel Diehl Attending Unavailabl e [place], Steffen Primary Care Unavailable Vanddimitri Diehl, Edel Referring Unavailabl e Mariana Jonas Attending Unavailable Edel Bullock Admitting Unavailabl e Vande Edel Diehl Consulting Unavailabl e [place], Steffen Primary Care Unavailable [place], Steffen Primary Care Unavailable Kiley Jain Attending Unavailable Kiley Jain Referring Unavailable Garrett Hernandez Attending Unavailable Levon Schmid Consulting Unavailable Faina, Steffen Primary Care Unavailable Faina, Steffen Attending Unavailable Vande Edel Diehl Referring Unavailabl e [place], Steffen Primary Care Unavailable VandEdel Logan Attending Unavailabl e [place], Steffen Primary Care Unavailable Faina, Steffen Referring Unavailable [place], Steffen Attending Unavailable Apple Lao Attending Unavailable Apple Lao Referring Unavailable [place], Steffen Primary Care Unavailable Faina, Steffen Primary Care Unavailable Ld Fermin Attending Unavailable [place], Steffen Primary Care Unavailable Misty Conteh Attending Unavailable Edel Bullock Referring Unavailabl e Vande Edel Diehl Attending Unavailabl e [place], Steffen Primary Care Unavailable Edel Bullock Attending Unavailabl e Shone VelEdel gómez Referring Unavailabl e Faina, Steffen Primary Care Unavailable Edel Bullock Attending Unavailabl e Vande VeldeMaggyEdel Referring Unavailabl e Faina, Steffen Primary Care Unavailable [place], Steffen Primary Care Unavailable Kiley Jain Attending Unavailable Kiley Jain Referring Unavailable Garrett Hernandez Referring Unavailable [place], Steffen Primary Care Unavailable Rekha Pruett Attending Unavailable Faina, Steffen Primary Care Unavailable [place], Steffen Attending Unavailable Faina, Steffen Referring Unavailable Edel Bullock Attending Unavailabl e Vande VelEdel gómez Referring Unavailabl e [place], Steffen Primary Care Unavailable Vande Edel Diehl Attending Unavailabl e [place], Steffen Referring Unavailable Faina, Steffen Primary Care Unavailable Vande Edel Diehl Attending Unavailabl e [place], Steffen Referring Unavailable Faina, Steffen Primary Care Unavailable Faina, Steffen Primary Care Unavailable Faina, Steffen Referring Unavailable Apple Lao Attending Unavailable Faina, Steffen Referring Unavailable [place], Steffen Primary Care Unavailable Edel Bullock Attending Unavailabl e [place], Steffen Primary Care Unavailable Faina, Steffen Referring Unavailable Edel Bullock Attending Unavailabl e Edel Bullock Referring Unavailabl Kiley Saunders Attending Unavailable Kiley Jain Referring Unavailable Vande Edel Diehl Consulting Unavailabl e Faina, Steffen Primary Care Unavailable Kiley Jain Consulting Unavailable Edel Bullock Attending Unavailabl e Faina, Steffen Primary Care Unavailable Faina, Steffen Referring Unavailable [place], Steffen Primary Care Unavailable Aziza Vasquez Attending Unavailable Vitor Olguin Attending Unavailable [place], Steffen Primary Care Unavailable Ej Shelton Referring Unavailable [place], Steffen Primary Care Unavailable Aida Shields Attending Unavailable Garrett Hernandez Attending Unavailable [place], Steffen Primary Care Unavailable Apple Lao Attending Unavailable [place], Steffen Referring Unavailable Apple Lao Attending Unavailable [place], Steffen Primary Care Unavailable [place], Steffen Referring Unavailable VandEdel Logan Attending Unavailabl e Faina, Steffen Primary Care Unavailable Care Physician, No Primary Referring Unava ilable Faina, Steffen Primary Care Unavailable Faina, Steffen Attending Unavailable Faina, Steffen Referring Unavailable Apple Lao Attending Unavailable [place], Steffen Primary Care Unavailable [place], Steffen Referring Unavailable Vande Edel Diehl Attending Unavailabl e [place], Steffen Primary Care Unavailable VandEdel Logan Attending Unavailabl e [place], Steffen Referring Unavailable [place], Steffen Primary Care Unavailable Edel Bullock Attending Unavailabl e Faina, Steffen Referring Unavailable Faina, Steffen Primary Care Unavailable [place], Steffen Primary Care Unavailable [place], Steffen Referring Unavailable Kiley Jain Attending Unavailable [place], Steffen Referring Unavailable Apple Lao Attending Unavailable Faina, Steffen Primary Care Unavailable Kiley Jain Referring Unavailable Kiley Jain Attending Unavailable Edel Bullock Consulting Unavailabl e Faina, Steffen Primary Care Unavailable Edel Bullock Attending UnavailLevon Das Consulting Unavailable Vande Velde, Edel Admitting Unavailabl e Faina, Steffen Primary Care Unavailable Edel Bullock Referring Unavailabl e Shone Edel Diehl Admitting Unavailabl e Vande Edel Diehl Attending Unavailabl e Faina, Steffen Primary Care Unavailable Care Physician, No Primary Primary Care Unava ilable Faina, Steffen Referring Unavailable Faina, Steffen Attending Unavailable Garrett Hernandez Referring Unavailable [place], Steffen Primary Care Unavailable Rekha Pruett Attending Unavailable Allergies Allergy Classification Reported Allergen(s) Allergy Type Date of Onset Reaction(s) Facility (13 sources) Amoxicillin; Translations: [AMOXICILLIN] Drug Allergy 1 Diarrhea, GI Intolerance [facility] (2 sources) ALLERGIES NOT ON FILE; Translations: [ALLERGIES NOT ON FILE] Propensity to adverse reactions (disorder) [facility] 2 Repository Medications Current Medications Medication Drug Class(es) Dates Sig (Normalized) Sig (Original) acetaminophen 500 mg oral capsule (9 sources) Start: 05-24-2025 [id number] 200 actuat albuterol 0.09 mg/actuat metered dose [...] on above: Take 1 capsule by mo [facility] three times a day as needed for up to 7 days. Breast Pump device (20 sources) Start: 01-29-2025 Breast Pump device Active 0 .ROUTE .MEDSUPPLY 1 0 January 29, 2025 12:00am As directed Start: 01-29-2025 Breast Pump de vice Active 0 .ROUTE .MEDSUPPLY 1 January 29, 2025 12:00am As directed ciprofloxacin 500 mg oral tablet (4 sources) Quinolone Antimicrobial Start: 06-18-2025 Cpap - Continuous Positive Airway Pressure([facility] Informational Use Only) device (4 sources) Start: 05-28-2025 Cpap - Continuous Positive Airway Pressure([facility] Informational Use Only) device Active 0 .ROUTE [...] 200 mg oral capsule (20 sources) Start: 11-04-2023 End: 07-28-2024 escitalopram 10 mg oral tabl et (20 sources) Serotonin Reuptake Inhibitor Start: 11-04-2023 End: 07-05-2025 Start: 01-06-2023 take 1 tablet by claude [...] every afternoon. famotidine 40 mg oral tablet (20 sources) Histamine-2 Receptor Antagonist Start: 10-07-2023 End: 07-07-2025 Start: 09-27-2021 End: 09-27-2022 take 1 tablet [...] 07-23-2019 famotidine (PE PCID) 40 MG tablet fluconazole 100 mg oral tablet (6 sources) Azole Antifungal Start: 06-05-2025 Glucose (1 source) Start: 03-08-2021 take 50 [...] 07/30/2017 Active ibuprofen 800 mg oral tablet (10 sources) Nonsteroidal Anti-inflammatory Drug Start: 05-12-2025 Inhalational Spacing Device (1 source) Start: 01-12-2024 [...] CAPSU LE BY MOUTH EVERY DAY vit 12-nedn-nneok-dha ( + DHA) 28 mg iron- 975 mcg-200 mg Cmpk (2 sources) Start: 09-02-2019 take 1 capsule by mouth once daily vit 74-sppy-ywroe-dha ( + DHA) 28 mg iron- 975 mcg-200 mg Cmpk Take 1 capsule by mouth daily . 0 09/02/2019 Active Vit-Fe Len-FY-Mjzng (PNV Plus Multivit+DHA) 27-1 & 312 MG Misc (4 sources) Start: 07-29-2024 Vit-Fe Pzp-AW-Swaws (PNV Plus Multivit+DHA) 27-1 & 312 MG Misc 1 tab + 1 cap daily. Due for yearly follow up - must be seen to get additional refills 180 Each 07/29/2024 Active Start: 10-29-2023 End: 07-29-2024 take 1 tablet by mouth once daily Vit-Fe Rdx-EN-Ftiou (PNV Plus Multivit+DHA) 27-1 & 312 MG Misc TAKE 1 TAB & 1 CAPSULE BY MOUTH EVERY DAY 180 Each 1 10/29/2023 07/29/2024 Discontinued Start: 07-03-2022 End: 09-27-2022 take 1 tablet by mouth once daily Vit-Fe Lgx-WY-Bulpn (PNV Plus Multivit+DHA) 27-1 & 312 MG Misc TAKE 1 TAB & 1 CAPSULE BY MOUTH EVERY DAY 0 07/03/2022 09/27/2022 Discontinued (Reorder) Start: 07-03-2022 take 1 tablet by claude th once daily Vit-Fe Ohu-ZH-Ohooq (PNV Plus Multivit+DHA) 27-1 & 312 MG [...] on formulary 90 tablet 3 09/27/2022 Active (12 sources) Start: 05-28-2025 Start: 04-19-2025 End: 05-24-2025 Start: 01-29-2025 Completed/Discontinued Medications Medication Drug Class(es) Dates Sig (Normalized) Sig (Original) acetaminophen 325 mg / oxyCODONE hydrochloride 5 mg oral tablet (10 sources) Opioid Agonist Start: 05-12-2025 End: 05-24-2025 Start: 05-12-2025 End: 05-24-2025 Oxycodone-Acetaminophen (Per cocet) 5-325 mg tablet Discontinued 1 {tbl} PO Q4H as needed for pain 20 7 0 May 12, 2025 May 24, 2025 2:40pm Status post delivery History of uterine scar from previous surgery aspirin 81 mg oral tablet (19 sources) Platelet Aggregation Inhibitor, Nonsteroidal Anti-inflammatory Drug Start: 04-19-2025 End: 05-24-2025 Start: 03-18-2019 End: 03-19-2019 aspirin chewable tablet 324 mg take 81 mg by mouth once daily A SPIRIN 81 PO Take 81 mg by mouth daily. 0 Active dextromethorphan hydrobromide 3 mg/ml / promethazine hydrochloride 1.25 mg/ml oral solution (2 sources) Phenothiazine, Uncompetitive Y-fjpgac-V-aspartate Receptor Antagonist, Sigma-1 Agonist Start: 08-10-2022 End: 09-27-2022 promethazine-dextromethorpha n 6.25-15 MG/5ML Syrup Indications: Post-viral cough syndrome Take 5 mL by mouth at bedtime as needed for Cough. 60 mL 0 08/10/2022 09/27/2022 Discontinued (Therapy completed) diphenhydrAMINE hydrochloride 25 mg oral capsule (20 sources) Histamine-1 Receptor Antagonist Start: 10-02-2024 End: 11-05-2024 Start: 10-02-2024 End: 11-05-2024 take 1 capsule by mouth at bedtime as needed Diphenhydramine Hcl (Benadryl) 25 mg capsule Discontinued 25 mg PO AT BEDTIME as needed October 02, 2024 1:00am November 05, 2024 3:32pm estradiol 2 mg oral tablet (20 sources) Estrogen Start: 10-02-2024 End: 11-05-2024 1 ml ketorolac tromethamine 30 mg/ml injection (1 source) Nonsteroidal Anti-inflammatory Drug, Cyclooxygenase Inhibitor Start: 03-19-2019 End: 03-19-2019 ketorolac (TORADOL) injection 30 mg letrozole 2.5 mg oral tablet (20 sources) Aromatase Inhibitor Start: 11-04-2023 End: 07-20-2024 Start: 11-04-2023 End: 07-20-2024 Letrozole (Femara) 2.5 [...] (20 sources) l-Thyroxine Start: 07-20-2024 End: 05-24-2025 lidocaine viscous 2% 10 mL and maalox plus 30 mL (GI COCKTAIL) 40 mL solution (1 source) Start: 03-18-2019 End: 03-19-2019 lidocaine viscous 2% 10 mL and maalox plus 30 mL (GI COCKTAIL) 40 mL solution loratadine 10 mg oral tablet (20 sources) Start: 10-02-2024 End: 11-05-2024 LORazepam 1 mg oral tablet (20 sources) Benzodiazepine Start: 12-02-2023 End: 07-20-2024 Start: 12-02-2023 End: 07-20-2024 Lorazepam (Ativan) 1 mg tabl et Discontinued 1 mg PO ONCE 1 0 December 02, 2023 1:00am July 20, 2024 2:19pm take 30 minutes prior to procedure Magnesium (13 sources) Start: 04-19-2025 End: 05-24-2025 take 1 [...] 12:00am medroxyPROGESTERone acetate 5 mg oral tablet (20 sources) Progestin Start: 01-22-2024 End: 07-20-2024 omeprazole 20 mg delayed release oral capsule (3 sources) Proton Pump Inhibitor End: 03-18-2019 take 1 capsule by mouth once daily omeprazole (PRILOSEC) 20 MG capsule Take 20 mg by mouth daily. 0 03/18/2019 Discontinued oxyCODONE hydrochloride 5 mg oral tablet (8 sources) Opioid Agonist Start: 05-28-2025 End: 06-10-2025 progesterone 100 mg vaginal insert (20 sources) Progesterone Start: 10-02-2024 End: 11-05-2024 Start: 10-02-2024 End: 11-05-2024 promethazine hydrochloride 2 5 mg oral tablet (20 sources) Phenothiazine Start: 12-17-2024 End: 04-19-2025 sulfamethoxazole 800 mg / trimethoprim 160 mg oral tablet (8 sources) Dihydrofolate Reductase Inhibitor Antibacterial, Sulfonamide Antimicrobial Start: 05-28-2025 End: 06-09-2025 Start: 05-28-2025 End: 06-09-2025 Sulfamethoxazole-Trimethopri m (Bactrim Ds) 800-160 mg tablet Discontinued 1 {tbl} PO TWICE A DAY 16 8 0 May 28, 2025 12:00am June 09, 2025 8:37am Problems Active Problems Problem Classification Problem Date Documented Da te Episodic/Chronic Anxiety disorders (20 sources) Generalized anxiety disorder; Translations: [Generalized anxiety disorder] Onset: 4 07-31-2018 Chronic Cardiac dysrhythmias (20 sources) Palpitations; Translations: [Palpitations] Onset: 6 01-30-2016 Episodic Chronic ulcer of skin (10 sources) Skin ulcer; Translations: [Non-pressure chronic ulcer of skin of other sites with fat layer exposed] Onset: 5 06-18-2025 Chronic Complications of surgical procedures or medical care (20 sources) Postoperative fever; Translations: [Postprocedural fever] Onset: 5 05-24-2025 Episodic Contraceptive and procreative management (20 sources) Oral contraception; Translations: [Encounter for surveillance of contraceptive pills] Onset: 8 Resolved: 0 06-27-2018 Episodic Diabetes or abnormal glucose tolerance complicating ; childbirth; or the puerperium (20 sources) Abnormal glucose level; Translations: [Abnormal glucose complicating ] Onset: 5 03-01-2025 Episodic Comment on above: needs 3 hour gtt passed 3 hour gtt Esophageal disorders (20 sources) Gastroesophageal reflux disease; Translations: [Gastro-esophageal reflux disease without esophagitis] Onset: 4 07-31-2018 Chronic Female infertility (20 sources) Female infertility associated with anovulation; Translations: [Female infertility associated with anovulation] Onset: 5 11-04-2023 Chronic Fever of unknown origin (1 source) Fever, unspecified; Translations: [Fever, unspecified] Onset: 5 Episodic Fluid and electrolyte disorders (20 sources) Mild dehydration; Translations: [Dehydration] 11-18-2024 Episodic Menstrual disorders (10 sources) Dysmenorrhea; Translations: [Dysmenorrhea, unspecified] Onset: 4 07-31-2018 Chronic Miscellaneous mental health disorders (8 sources) Eating disorder; Translations: [Eating disorder, unspecified] Onset: 7 08-28-2017 Chronic Mood disorders (4 sources) Recurrent major depression in full remission; Translations: [Major depressive disorder, recurrent, in full remission] Onset: 2 Chronic Mycoses (12 sources) Mycosis; Translations: [Candidiasis, unspecified] Onset: 5 06-05-2025 Episodic Other and unspecified benign neoplasm (1 source) [...] Translations: [Obesity complicating , unspecified trimester] Onset: 5 Chronic Other complications of (20 sources) RhD negative; Translations: [Other specified related conditions, unspecified trimester] Onset: 1 Resolved: 2 12-08-2020 Episodic Comment on above: B-, Needs Rhogam @ 2 8 weeks Other complications of (20 sources) Group B Streptococcus carrier; Translations: [Streptococcus B carrier state complicating ] Onset: 1 Resolved: 1 09-27-2021 Episodic Comment on above: treat in labor Other complications of (2 sources) Supervision of with history of infertility, unspecified trimester; Translations: [Supervision of with history of infertility, unspecified trimester] Onset: 5 Episodic Other complications of (20 sources) Multigravida of advanced maternal age; Translations: [Supervision of elderly multigravida, unspecified trimester] 10-02-2024 Episodic Other complications of (20 sources) High risk ; Translations: [Supervision of high risk , unspecified, unspecified trimester] 01-01-2025 Episodic Comment on above: PRR, , ANTONIO 05/19,boy PC: Larry, : [place] Other complications of (1 source) Streptococcus B carrier state complicating ; Translations: [Streptococcus B carrier state complicating ] Onset: 5 Episodic Other complications of (2 sources) Supervision of elderly multigravida, unspecified trimester; Translations: [Supervision of elderly multigravida, unspecified trimester] Onset: 5 Episodic Other complications of (2 sources) Other specified related conditions, unspecified trimester; Translations: [Other specified related conditions, unspecified trimester] Onset: 5 Episodic Other complications of (2 sources) Supervision of high risk , unspecified, unspecified trimester; Translations: [Supervision of high risk , unspecified, unspecified trimester] Onset: 5 Episodic Other complications of (1 source) Supervision of resulting from assisted reproductive technology, third trimester; Translations: [Supervision of resulting from assisted reproductive technology, third trimester] Onset: 5 Episodic Other connective tissue disease (1 source) Other symptoms and signs involving the nervous system; Translations: [Other symptoms and signs involving the nervous system] Onset: 5 Episodic Other endocrine disorders (20 sources) Polycystic ovary syndrome; Translations: [Polycystic ovarian syndrome] 11-04-2023 Chronic Other endocrine disorders (4 sources) Polycystic ovarian syndrome; Translations: [Polycystic ovaries] Onset: 5 11-04-2023 Chronic Other gastrointestinal disorders (1 source) Intra-abdominal and pelvic swelling, mass and lump, unspecified site; Translations: [Intra-abdominal and pelvic swelling, mass and lump, unspecified site] Onset: 5 Episodic Other inflammatory condition of skin (20 sources) Itching ; Translations: [Pruritus, unspecified] 04-07-2025 Episodic Other inflammatory condition of skin (2 sources) Pruritus, unspecified; Translations: [Pruritus, unspecified] Onset: 5 Episodic Other injuries and conditions due to external causes (14 sources) Local infection of wound; Translations: [Other injury of unspecified body region, initial encounter] 06-09-2025 Episodic Other injuries and conditions due to external causes (1 source) Other injury of unspecified body region, initial encounter; Translations: [Other injury of unspecified body region, initial encounter] Onset: 5 Episodic Other lower respiratory disease (3 sources) Cough; Translations: [Acute cough] Onset: 2 Episodic Other nutritional; endocrine; and metabolic disorders (5 sources) Morbid obesity; Translations: [Morbid (severe) obesity due to excess calories] Onset: 8 Resolved: 0 07-31-2018 Chronic Other nutritional; endocrine; and metabolic disorders (20 sources) Body mass index 40+ - severely obese; Translations: [Morbid (severe) obesity due to excess calories] Onset: 8 Resolved: 1 09-28-2020 Chronic Other nutritional; endocrine; and metabolic disorders (2 sources) Abnormal weight gain; Translations: [Abnormal weight gain] Onset: 3 Episodic Other and delivery including normal (20 sources) Normal ; Translations: [Encounter for supervision of normal first , unspecified trimester] Onset: 1 Resolved: 2 Episodic Comment on above: Discussed genetic/ca rrier testing - declines d/t embryo tested prior to transfer, nl anatomy. echo normal. Other screening for suspected conditions (not mental disorders or infectious disease) (3 sources) Elevated C-reactive protein; Translations: [Elevated C-reactive protein (CRP)] Onset: 7 08-01-2018 Other skin disorders (1 source) Acne; Translations: [Acne vulgaris] Episodic Other skin disorders (1 source) Changes in skin texture; Translations: [Changes in skin texture] Onset: 5 Episodic Other upper respiratory infections (2 sources) [...] and adjustment of other specified devices] Onset: 5 Chronic Residual codes; unclassified (20 sources) Sleep apnea; Translations: [Sleep apnea, unspecified] 10-02-2024 Chronic Residual codes; unclassified (1 source) Hypersomnia, unspecified; Translations: [Hypersomnia, unspecified] Onset: 5 Chronic Residual codes; unclassified (2 sources) Sleep apnea, unspecified; Translations: [Sleep apnea, unspecified] Onset: 5 Chronic Residual codes; unclassified (20 sources) Infertile 10-02-2024 Episodic Comment on above: [...] with limited medical history Residual codes; unclassified (16 sources) Past history of procedure; Translations: [Personal history of other medical treatment] 04-19-2025 Episodic Residual codes; unclassified (2 sources) History of uterine scar from previous surgery; Translations: [History of uterine scar from previous surgery] Onset: Episodic Residual codes; unclassified (2 sources) Other specified health status; Translations: [Other specified health status] Onset: 5 Episodic Residual codes; unclassified (2 sources) Family history of other specified conditions; Translations: [Family history of other specified conditions] Onset: Episodic Residual codes; unclassified (2 sources) Unspecified blood type, Rh negative; Translations: [Unspecified blood type, Rh negative] Onset: 5 Episodic Residual codes; unclassified (1 source) 38 weeks gestation of ; Translations: [38 weeks gestation of ] Onset: Episodic Skin and subcutaneous tissue infections (20 sources) Abscess of skin and/or subcutaneous tissue; Translations: [Cutaneous abscess, unspecified] Onset: 5 05-24-2025 Episodic Substance-related disorders (20 sources) Marijuana user; Translations: [Cannabis use, unspecified, uncomplicated] Onset: 5 10-02-2024 Episodic Comment on above: Last use: May 2024; Pt informed of random tox screens Syncope (20 sources) Vasovagal syncope; Translations: [Syncope and collapse] 11-18-2024 Episodic Unclassified (9 sources) Patient encounter status; Translations: [Well adult exam] Onset: 4 07-31-2018 Unclassified (1 source) Onset: 1 05-17-2021 Unclassified (1 source) Infertile; Translations: [Infertility] 12-02-2023 Unclassified (3 sources) Abscess of skin Unclassified (3 sources) Soft tissue abscess Unclassified (3 sources) Encounter for management of vacuum-assisted closure (VAC) of wound Unclassified (3 sources) L02.91 - Cutaneous abscess, unspecified,Z46.89 - Encounter [...] unspecified] Onset: 08-28-2017 Resolved: 09-28-2020 08-01-2018 Chronic Early or threatened labor (1 source) False labor before 37 completed weeks of gestation, unspecified trimester; Translations: [False labor before 37 completed weeks of gestation, unspecified trimester] Onset: 03-12-2025 Episodic Gastrointestinal hemorrhage (8 sources) Rectal hemorrhage; Translations: [Hemorrhage of anus and rectum] Onset: 10-06-2014 Resolved: 07-31-2018 07-31-2018 Episodic Headache; including migraine (8 sources) Headache; Translations: [Headache] Onset: 08-23-2014 Resolved: 07-31-2018 07-31-2018 Episodic Hemorrhoids (8 sources) Hemorrhoids; Translations: [Unspecified hemorrhoids] Onset: 08-23-2014 04-08-2015 Episodic Immunizations and screening for infectious disease (3 sources) Contact with and (suspected) exposure to other viral communicable diseases; Translations: [Needs influenza immunization] Onset: 03-10-2025 Episodic Mood disorders (4 sources) Mood disorders [...] 09-27-2022 Episodic Other complications of (1 source) Other abnormal findings on screening of mother; Translations: [Other abnormal findings on screening of mother] Onset: 04-29-2025 Episodic Other complications of (1 source) Supervision of elderly primigravida, first trimester; Translations: [Supervision of elderly primigravida, first trimester] Onset: 11-25-2024 Episodic Other gastrointestinal disorders (1 source) Diarrhea; Translations: [Diarrhea, unspecified type] Episodic Other injuries and conditions due to external causes (8 sources) Injury of knee; Translations: [Sprain of other specified parts of unspecified knee, initial encounter] Onset: 04-08-2015 Resolved: 07-31-2018 07-31-2018 Episodic Other non-traumatic joint disorders (8 sources) Joint pain; Translations: [Pain in unspecified joint] Onset: 11-21-2017 Resolved: 07-31-2018 07-31-2018 Episodic Other screening for suspected conditions (not mental disorders or infectious disease) (8 sources) Elevated C-reactive protein; Translations: [Elevated C-reactive protein (CRP)] Onset: 08-28-2017 07-24-2019 Episodic Previous (1 source) Maternal care for unspecified type scar from previous delivery; Translations: [Maternal care for unspecified type scar from previous delivery] Onset: 10-09-2024 Episodic Residual codes; unclassified (1 source) Generalized aches and pains; Translations: [Generalized body aches] Episodic Residual codes; unclassified (2 sources) 34 [...] Test Name Value Interpretation Reference Range Facility Internal Medicine Office Vis iton 07-23-2025 Internal Medicine Office Visit [facility] Culture, Anaerobic Any Sourc tracy 06-30-2025 CUAN [facility] Comment on above: Performed By: #### M 100.3000, M100.4001, ####[facility] [address] [place], [place], [id number] Wound Cultureon 06-29-2025 WC [facility] Comment on above: Performed By: #### M 100.3000, M100.4001, ####[facility] [address] [place], [place], [id number] Gram Stainon 06-26-2025 GS List Antibiotics Last 48 Hours? cipro List Antibiotics to be Started? none Gram Stain Rare Gram positive cocci Rare Gram positive rods Rare White Blood Cells No Epithelial cells Normal [facility] Comment on above: Performed By: #### M 100.3000, M100.4001, M100.2000 ####[facility] [address] [place], [address] Anaerobic cultureOrdered By: Rekha Pruett on 06-25-2025 Bacteria identified Anaer cx Nom (Unsp spec) Winkia noemiii Abnormal [facility] Bacteria identified Anaer cx Nom (Unsp spec) Anaerobic cocci Abnormal [facility] Culture, Fungus 8482on 06-[address] [facility] Comment on above: Performed By: #### M 600.1999, M600.2200 ####[facility] [address] [place], [address] Fungus Stain 8136on 06-25-[address] [facility] Comment on above: Performed By: #### M 600.1999, M600.2200 ####[facility] [address] [place], [address] Gram stainOrdered By: Rekha shukla on 06-25-2025 Microscopic observation Gram stain Nom (Unsp spec) [facility] Implementation Lead Office Visit Reporton 06-23-2025 Implementation Lead Office Visit Report Normal [facility] Wound Ctr History AND Physic gustavo 06-18-2025 Wound Ctr History & Physical Normal [facility] Culture, Anaerobic Any Sourc tracy 06-15-[address] [facility] Comment on above: Performed By: #### M 100.2000, M100.4001, M100.3000 ####[facility] [address] [place], [address] Wound Cultureon 06-12-[address] [facility] Comment on above: Performed By: #### M 100.2000, M100.4001, M100.3000 ####[facility] [address] [place], [address] Gram Stainon 06-10-2025 GS Gram Stain 4+ Red Blood Cells 1+ White Blood Cells No organisms seen No Epithelial cells Normal [facility] Comment on above: Performed By: #### M 100.2000, M100.4001, M100.3000 ####[facility] [address] [place], [address] Implementation Lead Office Visit Reporton 06-10-2025 Implementation Lead Office Visit Report Normal [facility] Anaerobic cultureOrdered By: Keysha Carr on 06-09-2025 Bacteria identified Anaer cx Nom (Unsp spec) Prevotella bivia Abnormal [facility] Bacteria identified Anaer cx Nom (Unsp spec) Anaerobic cocci Abnormal [facility] Gram stainOrdered By: Keysha khan on 06-09-2025 Microscopic observation Gram stain Nom (Unsp spec) [facility] Routine wound cultureOrdered By: Keysha Carr on 06-09-2025 Microbial culture, routine Morganella morganii sp morgani Abnormal [facility] Microbial culture, routine Staphylococcus epidermidis Abnormal [facility] Microbial culture, routine Corynebacterium amycolatum Abnormal [facility] Wound Ctr History AND Physic gustavo 06-09-2025 Wound Ctr History & Physical Normal [facility] Absolute lymphocyte countOrd ered By: Misty Conteh on 06-05-2025 Lymphocytes Auto (Unsp spec) [#/Vol] 2.15 10*3/uL 0.83-4.[address] [facility] Absolute neutrophil countOrd ered By: Remus Wero on 06-05-2025 Neutrophils (Bld) [#/Vol] 7.6 10*3/uL 2.0-7.[address] [facility] Automated lymphocyte count a s percentage of total leukocytesOrdered By: Remus Conteh on 06-05-2025 Lymphocytes/100 WBC Auto (Unsp spec) 19.9 % 19-[address] [facility] Basophil percentageOrdered B y: Remus Wero on 06-05-2025 Basophils/100 WBC (Bld) 0.6 % 0-1 [facility] CBC W/Diff, Automatedon Absolute Lymph 2.15 X10 3/uL Normal 0.83-4.[address] [facility] Comment on above: Performed By: #### L 100.0100, L503.6005 ####[facility] [address] [place], [address] Absolute Neut 7.6 X10 3/uL Normal 2.0-7.[address] [facility] Comment on above: Performed By: #### L 100.0100, L503.6005 ####[facility] [address] [place], [address] Basophils/100 WBC (Bld) 0.6 % Normal 0-1 [facility] Comment on above: Performed By: #### L 100.0100, L503.6005 ####[facility] [address] [place], [address] Eosinophils/100 WBC (Bld) 2.5 % Normal 0-[address] [facility] Comment on above: Performed By: #### L 100.0100, L503.6005 ####[facility] [address] [place], [address] Erythrocyte distribution width (RBC) [Ratio] 14.1 % Normal 11.6-14.[address] [facility] Comment on above: Performed By: #### L 100.0100, L503.6005 ####[facility] [address] [place], [address] Hematocrit (Bld) [Volume fraction] 30.1 % Low 37-[address] [facility] Comment on above: Performed By: #### L 100.0100, L503.6005 ####[facility] [address] [place], [address] Hemoglobin (Bld) [Mass/Vol] 9.5 g/dL Low 12.0-15.[address] [facility] Comment on above: Performed By: #### L 100.0100, L503.6005 ####[facility] [address] [place], [address] IG% 1.200 High 0.0-0.[address] [facility] Comment on above: Result Comment: IG% - Immature Granulocytes (promyelocytes, myelocytes andmetamyelocytes) > 1% indicates that a LEFT SHIFT is Present. Performed By: #### L 100.0100, L503.6005 ####[facility] [address] [place], [address] Lymphocytes/100 WBC (Bld) 19.9 % Normal 19-[address] [facility] Comment on above: Performed By: #### L 100.0100, L503.6005 ####[facility] [address] [place], [address] MCH (RBC) [Entitic mass] 28.1 pg Normal 27.0-32.[address] [facility] Comment on above: Performed By: #### L 100.0100, L503.6005 ####[facility] [address] [place], [address] MCHC (RBC) [Mass/Vol] 31.6 g/dL Low 32-36 [facility] Comment on above: Performed By: #### L 100.0100, L503.6005 ####[facility] [address] [place], [address] MCV (RBC) [Entitic vol] 89.1 fL Normal 81-99 [facility] Comment on above: Performed By: #### L 100.0100, L503.6005 ####[facility] [address] [place], [address] Monocytes/100 WBC (Bld) 5.6 % Normal 0-10 [facility] Comment on above: Performed By: #### L 100.0100, L503.6005 ####[facility] [address] [place], [address] Neutrophils/100 WBC (Bld) 70.2 % High 47-[address] [facility] Comment on above: Performed By: #### L 100.0100, L503.6005 ####[facility] [address] [place], [address] Nucleated RBC (Bld) [#/Vol] 0 10*3/uL Normal 0-[address] [facility] Comment on above: Performed By: #### L 100.0100, L503.6005 ####[facility] [address] [place], [address] Platelet mean volume (Bld) [Entitic vol] 8.5 fL Normal 6.2-12.[address] [facility] Comment on above: Performed By: #### L 100.0100, L503.6005 ####[facility] [address] [place], [address] Platelets (Bld) [#/Vol] 406 10*3/uL Normal 150-[address] [facility] Comment on above: Performed By: #### L 100.0100, L503.6005 ####[facility] [address] [place], [address] RBC (Bld) [#/Vol] 3.38 10*6/uL Low 4.2-5.4 [facility] Comment on above: Performed By: #### L 100.0100, L503.6005 ####[facility] [address] [place], [address] RDW SD 45.5 fl High 35.1-43.[address] [facility] Comment on above: Performed By: #### L 100.0100, L503.6005 ####[facility] [address] [place], [address] WBC (Bld) [#/Vol] 10.8 10*3/uL Normal 4.4-11.0 [facility] Comment on above: Performed By: #### L 100.0100, L503.6005 ####[facility] [address] [place], [address] Emergency Department Summary on 06-05-2025 Emergency Department Summary Normal [facility] Eosinophil percentageOrdered By: Misty Conteh on 06-05-2025 Eosinophils/100 WBC (Bld) 2.5 % 0-[address] [facility] Erythrocyte distribution wid th ratioOrdered By: [facility] on 06-05-2025 Erythrocyte distribution width (RBC) [Ratio] 14.1 % 11.6-14.[address] [facility] Erythrocyte distribution wid th standard deviationOrdered By: [place] Wero on 06-05-2025 Erythrocyte distribution width (RBC) [Ratio] 45.5 fl High 35.1-43.[address] [facility] Hematocrit Auto (Bld) [Volum e fraction]Ordered By: Misty Conteh on 06-05-2025 Hematocrit (Bld) [Volume fraction] 30.1 % Low 37-[address] [facility] Hemoglobin measurementOrdere d By: [place] Wero on 06-05-2025 Hemoglobin (Bld) [Mass/Vol] 9.5 g/dL Low 12.0-15.[address] [facility] Immature granulocytes/100 WB C Auto (Bld)Ordered By: [facility] Con[facility] on 06-05-2025 Immature granulocytes/100 WBC (Bld) 1.200 % High 0.0-0.[address] [facility] Comment on above: IG% - Immature Granu locytes (promyelocytes, myelocytes and metamyelocytes) > 1% indicates that a LEFT SHIFT is Present. Lactic Acidon 06-05-2025 Lactate [Moles/Vol] mmol/L Normal 0.0-2.0 [facility] Comment on above: Order Comment: Y Performed By: #### L 100.0100, L503.6005 ####[facility] [address] [place], [place], [id number] Lactic acid measurementOrder ed By: Misty Conteh on 06-05-2025 Lactate [Moles/Vol] mmol/L 0.0-2.0 [facility] MCV (mean corpuscular volume ) determinationOrdered By: Misty Conteh on 06-05-2025 MCV (RBC) [Entitic vol] 89.1 fL 81-99 [facility] Mean corpuscular hemoglobin (MCH) determinationOrdered By: Misty Ungaide on 06-05-2025 MCH (RBC) [Entitic mass] 28.1 pg 27.0-32.[address] [facility] Mean corpuscular hemoglobin concentration (MCHC) determinationOrdered By: Misty Ungaide on 06-05-2025 MCHC (RBC) [Mass/Vol] 31.6 g/dL Low 32-36 [facility] Mean platelet volume determi nationOrdered By: Misty Ungaide on 06-05-2025 Platelet mean volume (Bld) [Entitic vol] 8.5 fL 6.2-12.[address] [facility] Monocyte percentageOrdered B y: Misty Conteh on 06-05-2025 Monocytes/100 WBC (Bld) 5.6 % 0-10 [facility] Neutrophil percentageOrdered By: Misty Conteh on 06-05-2025 Neutrophils/100 WBC (Bld) 70.2 % High 47-[address] [facility] Nucleated red blood cell per centageOrdered By: Misty Conteh on 06-05-2025 Nucleated RBC/100 WBC (Bld) [Ratio] 0 % 0-[address] [facility] Platelet countOrdered By: Unique Conteh on 06-05-2025 Platelets (Bld) [#/Vol] 406 10*3/uL 150-[address] [facility] RBC Auto (Bld) [#/Vol]Ordere d By: Misty Conteh on 06-05-2025 RBC (Bld) [#/Vol] 3.38 10*6/uL Low 4.2-5.4 [facility] White blood cell (WBC) count Ordered By: Misty Conteh on 06-05-2025 WBC (Bld) [#/Vol] 10.8 10*3/uL 4.4-11.0 [facility] Absolute lymphocyte countOrd ered By: Edel Diehl on 06-01-2025 Lymphocytes Auto (Unsp spec) [#/Vol] 2.13 10*3/uL 0.83-4.[address] [facility] Absolute neutrophil countOrd ered By: Edel Diehl on 06-01-2025 Neutrophils (Bld) [#/Vol] 7.6 10*3/uL 2.0-7.[address] [facility] Automated lymphocyte count a s percentage of total leukocytesOrdered By: Edel Diehl on 06-01-2025 Lymphocytes/100 WBC Auto (Unsp spec) 18.7 % Low 19-[address] [facility] Basophil percentageOrdered B y: Edel Diehl on 06-01-2025 Basophils/100 WBC (Bld) 0.8 % 0-1 [facility] CBC W/Diff, Automatedon Absolute Lymph 2.13 X10 3/uL Normal 0.83-4.[address] [facility] Comment on above: Performed By: #### L 100.0100 ####[facility] [address] [place], [address] Absolute Neut 7.6 X10 3/uL Normal 2.0-7.[address] [facility] Comment on above: Performed By: #### L 100.0100 ####[facility] [address] [place], [address] Basophils/100 WBC (Bld) 0.8 % Normal 0-1 [facility] Comment on above: Performed By: #### L 100.0100 ####[facility] [address] [place], [address] Eosinophils/100 WBC (Bld) 3.9 % Normal 0-[address] [facility] Comment on above: Performed By: #### L 100.0100 ####[facility] [address] [place], [address] Erythrocyte distribution width (RBC) [Ratio] 13.9 % Normal 11.6-14.[address] [facility] Comment on above: Performed By: #### L 100.0100 ####[facility] [address] [place], [address] Hematocrit (Bld) [Volume fraction] 30.4 % Low 37-[address] [facility] Comment on above: Performed By: #### L 100.0100 ####[facility] [address] [place], [address] Hemoglobin (Bld) [Mass/Vol] 9.7 g/dL Low 12.0-15.[address] [facility] Comment on above: Performed By: #### L 100.0100 ####[facility] [address] [place], [address] IG% 4.300 High 0.0-0.[address] [facility] Comment on above: Result Comment: IG% - Immature Granulocytes (promyelocytes, myelocytes andmetamyelocytes) > 1% indicates that a LEFT SHIFT is Present. Performed By: #### L 100.0100 ####[facility] [address] [place], [address] Lymphocytes/100 WBC (Bld) 18.7 % Low 19-[address] [facility] Comment on above: Performed By: #### L 100.0100 ####[facility] [address] [place], [address] MCH (RBC) [Entitic mass] 28.5 pg Normal 27.0-32.[address] [facility] Comment on above: Performed By: #### L 100.0100 ####[facility] [address] [place], [address] MCHC (RBC) [Mass/Vol] 31.9 g/dL Low 32-36 [facility] Comment on above: Performed By: #### L 100.0100 ####[facility] [address] [place], [address] MCV (RBC) [Entitic vol] 89.4 fL Normal 81-99 [facility] Comment on above: Performed By: #### L 100.0100 ####[facility] [address] [place], [address] Monocytes/100 WBC (Bld) 5.8 % Normal 0-10 [facility] Comment on above: Performed By: #### L 100.0100 ####[facility] [address] [place], [address] Neutrophils/100 WBC (Bld) 66.5 % Normal 47-[address] [facility] Comment on above: Performed By: #### L 100.0100 ####[facility] [address] [place], [address] Nucleated RBC (Bld) [#/Vol] 0 10*3/uL Normal 0-[address] [facility] Comment on above: Performed By: #### L 100.0100 ####[facility] [address] [place], [address] Platelet mean volume (Bld) [Entitic vol] 8.8 fL Normal 6.2-12.[address] [facility] Comment on above: Performed By: #### L 100.0100 ####[facility] [address] [place], [address] Platelets (Bld) [#/Vol] 500 10*3/uL High 150-[address] [facility] Comment on above: Performed By: #### L 100.0100 ####[facility] [address] [place], [address] RBC (Bld) [#/Vol] 3.40 10*6/uL Low 4.2-5.4 [facility] Comment on above: Performed By: #### L 100.0100 ####[facility] [address] [place], [address] RDW SD 45.6 fl High 35.1-43.[address] [facility] Comment on above: Performed By: #### L 100.0100 ####[facility] [address] [place], [address] WBC (Bld) [#/Vol] 11.4 10*3/uL High 4.4-11.0 [facility] Comment on above: Performed By: #### L 100.0100 ####[facility] [address] [place], [address] Eosinophil percentageOrdered By: Edel Diehl on 06-01-2025 Eosinophils/100 WBC (Bld) 3.9 % 0-[address] [facility] Erythrocyte distribution wid th ratioOrdered By: Edel Diehl on 06-01-2025 Erythrocyte distribution width (RBC) [Ratio] 13.9 % 11.6-14.[address] [facility] Erythrocyte distribution wid th standard deviationOrdered By: Edel Diehl on 06-01-2025 Erythrocyte distribution width (RBC) [Ratio] 45.6 fl High 35.1-43.[address] [facility] Hematocrit Auto (Bld) [Volum e fraction]Ordered By: Edel Diehl on 06-01-2025 Hematocrit (Bld) [Volume fraction] 30.4 % Low 37-[address] [facility] Hemoglobin measurementOrdere d By: Edel Diehl on 06-01-2025 Hemoglobin (Bld) [Mass/Vol] 9.7 g/dL Low 12.0-15.[address] [facility] Immature granulocytes/100 WB C Auto (Bld)Ordered By: Edel Diehl on 06-01-2025 Immature granulocytes/100 WBC (Bld) 4.300 % High 0.0-0.[address] [facility] Comment on above: IG% - Immature Granu locytes (promyelocytes, myelocytes and metamyelocytes) > 1% indicates that a LEFT SHIFT is Present. MCV (mean corpuscular volume ) determinationOrdered By: Edel Diehl on 06-01-2025 MCV (RBC) [Entitic vol] 89.4 fL 81-99 [facility] Mean corpuscular hemoglobin (MCH) determinationOrdered By: Edel Diehl on 06-01-2025 MCH (RBC) [Entitic mass] 28.5 pg 27.0-32.[address] [facility] Mean corpuscular hemoglobin concentration (MCHC) determinationOrdered By: Edel Diehl on 06-01-2025 MCHC (RBC) [Mass/Vol] 31.9 g/dL Low 32-36 [facility] Mean platelet volume determi nationOrdered By: Edel Diehl on 06-01-2025 Platelet mean volume (Bld) [Entitic vol] 8.8 fL 6.2-12.[address] [facility] Monocyte percentageOrdered B y: Edel Diehl on 06-01-2025 Monocytes/100 WBC (Bld) 5.8 % 0-10 [facility] Neutrophil percentageOrdered By: Edel Diehl on 06-01-2025 Neutrophils/100 WBC (Bld) 66.5 % 47-[address] [facility] Nucleated red blood cell per centageOrdered By: Edel Diehl on 06-01-2025 Nucleated RBC/100 WBC (Bld) [Ratio] 0 % 0-[address] [facility] Platelet countOrdered By: Mickey Diehl on 06-01-2025 Platelets (Bld) [#/Vol] 500 10*3/uL High 150-[address] [facility] RBC Auto (Bld) [#/Vol]Ordere d By: Edel Diehl on 06-01-2025 RBC (Bld) [#/Vol] 3.40 10*6/uL Low 4.2-5.4 [facility] White blood cell (WBC) count Ordered By: Edel Diehl on 06-01-2025 WBC (Bld) [#/Vol] 11.4 10*3/uL High 4.4-11.0 [facility] Culture, Anaerobic Any Sourc tracy 05-31-2025 CUAN UNK UNK ABDOMINAL WALL ABSCESS, COLLECTED IN OR No anaerobic bacteria isolated. Normal [facility] Comment on above: Performed By: #### M 100.2000, M100.4001, M100.3000 ####[facility] [address] [place], [place], [id number] Culture, Blood (WB)on 2024 CUB Blood cultures x2, from two different sites No growth in 5 days. [facility] Comment on above: Performed By: #### M 200.1000 ####[facility] [address] [place], [address] Culture, Anaerobic Any Sourc tracy 05-29-2025 CUAN No anaerobic bacteria isolated. Normal [facility] Comment on above: Performed By: #### M 100.2000, M100.4001, M100.2900 ####[facility] [address] [place], [address] Culture, Blood (WB)on [address] [facility] Comment on above: Performed By: #### M 100.636, M200.1000 ####[facility] [address] [place], [address] Wound Cultureon 05-29-[address] [facility] Comment on above: Performed By: #### M 100.2000, M100.4001, M100.3000 ####[facility] [address] [place], [address] Absolute lymphocyte countOrd ered By: Apple Lao on 05-28-2025 Lymphocytes Auto (Unsp spec) [#/Vol] 1.49 10*3/uL 0.83-4.[address] [facility] Absolute neutrophil countOrd ered By: Apple Lao on 05-28-2025 Neutrophils (Bld) [#/Vol] 9.0 10*3/uL High 2.0-7.[address] [facility] Anion gap in Serum or Plasma Ordered By: Apple Lao on 05-28-2025 Anion gap [Moles/Vol] 14 mmol/L 5-15 [facility] Automated lymphocyte count a s percentage of total leukocytesOrdered By: Apple Lao on 05-28-2025 Lymphocytes/100 WBC Auto (Unsp spec) 12.9 % Low 19-[address] [facility] BC GPC IDon 05-28-2025 BC GPC ID Normal [facility] Comment on above: Performed By: #### M 100.636, M200.1000 ####[facility] [address] [place], [address] BUN/creatinine ratioOrdered By: Apple Lao on 05-28-2025 Urea nitrogen/Creatinine [Mass ratio] 10.0 mg/mg - [facility] Basic Metabolic Profile (BMP )on 05-28-2025 BUN/CRE 10.0 RATIO Normal 07-[address] [facility] Comment on above: Performed By: #### L 100.0100, L500.2500 ####[facility] [address] [place], [address] Calcium [Mass/Vol] 8.4 mg/dL Normal 7.6-11.0 [facility] Comment on above: Performed By: #### L 100.0100, L500.2500 ####[facility] [address] [place], [address] Chloride [Moles/Vol] 109 mmol/L High 98-108 [facility] Comment on above: Performed By: #### L 100.0100, L500.2500 ####[facility] [address] [place], [address] CO2 [Moles/Vol] 17.8 mmol/L Low 21.0-32.[address] [facility] Comment on above: Performed By: #### L 100.0100, L500.2500 ####[facility] [address] [place], [address] Creatinine [Mass/Vol] 1.02 mg/dL Normal 0.70-1.20 [facility] Comment on above: Performed By: #### L 100.0100, L500.2500 ####[facility] [address] [place], [address] ECRCL 93.45 ml/min Normal 50-[address] [facility] Comment on above: Performed By: #### L 100.0100, L500.2500 ####[facility] [address] [place], [address] GAP 14 Normal 5-[address] [facility] Comment on above: Performed By: #### L 100.0100, L500.2500 ####[facility] [address] [place], [address] GFR/1.73 sq M.predicted among non-blacks MDRD (S/P/Bld) [Vol rate/Area] 74 mL/min/{1.73_m2} Normal >[address] [facility] Comment on above: Result Comment: mL/m in/1.73m2 CKD-EPI Creatinine Equation (2020) Performed By: #### L 100.0100, L500.2500 ####[facility] [address] [place], [address] Glucose [Mass/Vol] 89 mg/dL Normal 70-99 [facility] Comment on above: Performed By: #### L 100.0100, L500.2500 ####[facility] [address] [place], [address] Potassium [Moles/Vol] 3.3 mmol/L Normal 3.3-5.1 [facility] Comment on above: Performed By: #### L 100.0100, L500.2500 ####[facility] [address] [place], [address] Sodium [Moles/Vol] 141 mmol/L Normal 133-145 [facility] Comment on above: Performed By: #### L 100.0100, L500.2500 ####[facility] [address], [address] Urea nitrogen [Mass/Vol] 10 mg/dL Normal 4-[address] [facility] Comment on above: Performed By: #### L 100.0100, L500.2500 ####[facility] [address] [place], [address] Basophil percentageOrdered B y: Apple Lao on 05-28-2025 Basophils/100 WBC (Bld) 0.1 % 0-1 [facility] CBC W/DiffMikeon 05-01 Absolute Lymph 1.49 X10 3/uL Normal 0.83-4.[address] [facility] Comment on above: Performed By: #### L 100.0100, L500.2500 ####[facility] [address] [place], [address] Absolute Neut 9.0 X10 3/uL High 2.0-7.[address] [facility] Comment on above: Performed By: #### L 100.0100, L500.2500 ####[facility] [address] [place], [address] Basophils/100 WBC (Bld) 0.1 % Normal 0-1 [facility] Comment on above: Performed By: #### L 100.0100, L500.2500 ####[facility] [address] [place], [address] Eosinophils/100 WBC (Bld) 0.4 % Normal 0-[address] [facility] Comment on above: Performed By: #### L 100.0100, L500.2500 ####[facility] [address] [place], [address] Erythrocyte distribution width (RBC) [Ratio] 14.1 % Normal 11.6-14.[address] [facility] Comment on above: Performed By: #### L 100.0100, L500.2500 ####[facility] [address] [place], [address] Hematocrit (Bld) [Volume fraction] 24.1 % Low 37-[address] [facility] Comment on above: Performed By: #### L 100.0100, L500.2500 ####[facility] [address] [place], [address] Hemoglobin (Bld) [Mass/Vol] 7.9 g/dL Low 12.0-15.[address] [facility] Comment on above: Performed By: #### L 100.0100, L500.2500 ####[facility] [address] [place], [address] IG% 1.100 High 0.0-0.[address] [facility] Comment on above: Result Comment: IG% - Immature Granulocytes (promyelocytes, myelocytes andmetamyelocytes) > 1% indicates that a LEFT SHIFT is Present. Performed By: #### L 100.0100, L500.2500 ####[facility] [address] [place], [address] Lymphocytes/100 WBC (Bld) 12.9 % Low 19-[address] [facility] Comment on above: Performed By: #### L 100.0100, L500.2500 ####[facility] [address] [place], [address] MCH (RBC) [Entitic mass] 29.3 pg Normal 27.0-32.[address] [facility] Comment on above: Performed By: #### L 100.0100, L500.2500 ####[facility] [address] [place], [address] MCHC (RBC) [Mass/Vol] 32.8 g/dL Normal 32-36 [facility] Comment on above: Performed By: #### L 100.0100, L500.2500 ####[facility] [address] [place], [address] MCV (RBC) [Entitic vol] 89.3 fL Normal 81-99 [facility] Comment on above: Performed By: #### L 100.0100, L500.2500 ####[facility] [address] [place], [address] Monocytes/100 WBC (Bld) 7.9 % Normal 0-10 [facility] Comment on above: Performed By: #### L 100.0100, L500.2500 ####[facility] [address] [place], [address] Neutrophils/100 WBC (Bld) 77.6 % High 47-[address] [facility] Comment on above: Performed By: #### L 100.0100, L500.2500 ####[facility] [address] [place], [address] Nucleated RBC (Bld) [#/Vol] 0 10*3/uL Normal 0-[address] [facility] Comment on above: Performed By: #### L 100.0100, L500.2500 ####[facility] [address] [place], [address] Platelet mean volume (Bld) [Entitic vol] 8.8 fL Normal 6.2-12.[address] [facility] Comment on above: Performed By: #### L 100.0100, L500.2500 ####[facility] [address] [place], [address] Platelets (Bld) [#/Vol] 331 10*3/uL Normal 150-[address] [facility] Comment on above: Performed By: #### L 100.0100, L500.2500 ####[facility] [address] [place], [address] RBC (Bld) [#/Vol] 2.70 10*6/uL Low 4.2-5.4 [facility] Comment on above: Performed By: #### L 100.0100, L500.2500 ####[facility] [address] [place], [address] RDW SD 45.9 fl High 35.1-43.[address] [facility] Comment on above: Performed By: #### L 100.0100, L500.2500 ####[facility] [address] [place], [address] WBC (Bld) [#/Vol] 11.5 10*3/uL High 4.4-11.0 [facility] Comment on above: Performed By: #### L 100.0100, L500.2500 ####[facility] [address] [place], [address] Carbon dioxide, total [Moles /volume] in Central venous bloodOrdered By: Apple Lao on 05-28-2025 CO2 [Moles/Vol] 17.8 mmol/L Low 21.0-32.[address] [facility] Chloride assayOrdered By: Elena Lao on 05-28-2025 Chloride [Moles/Vol] 109 mmol/L High 98-108 [facility] Electrocardiogram reportOrde red By: Vitor Olguin on 05-28-2025 EKG study [facility] [address] [place] [address] 12 Lead EKG 05/25/25 0732 MR#: [id number] Acct: [id number] Name: BARBY CABALLERO Rep #:[id number] : 1990 34 From: Vitor Olguin MD Attending Dr: Dr. Edel Bullock DO Status: ADM IN Ordering Dr: Edel Bullock DO D ate: 05/25/25 Location: [facility]3 Sex: F C Admitted: 05/24/25 Test Reason [...] change was found Confirmed by VITOR OLGUIN ([id number]), newspaper or periodical editor RAEGAN WHITE ([id number]) on 05/28/2025 5:45:57 AM Referred By: JULIAN Confirmed By: VITOR OLGUIN 05/28/25 0546 Date _ Vitor Olguin MD CC: Dr. Steffen Eisenberg MD; Dr. Edel Bullock, DO ~ Signed [facility] Other Phone: Eosinophil percentageOrdered By: Apple Lao on 05-28-2025 Eosinophils/100 WBC (Bld) 0.4 % 0-[address] [facility] Erythrocyte distribution wid th ratioOrdered By: Apple Lao on 05-28-2025 Erythrocyte distribution width (RBC) [Ratio] 14.1 % 11.6-14.[address] [facility] Erythrocyte distribution wid th standard deviationOrdered By: Apple Lao on 05-28-2025 Erythrocyte distribution width (RBC) [Ratio] 45.9 fl High 35.1-43.[address] [facility] Glomerular filtration rate ( GFR) estimation/1.73 sq m using serum, plasma, or whole bOrdered By: Apple Lao on 05-28-2025 GFR/1.73 sq M.predicted among non-blacks MDRD (S/P/Bld) [Vol rate/Area] 74 mL/min/{1.73_m2} >[address] [facility] Comment on above: mL/min/1.73m2 CKD-EP I Creatinine Equation (2020) Gram Stainon 05-28-2025 GS UNK UNK ABDOMINAL WALL ABSCESS, COLLECTED IN OR Gram Stain 4+ White Blood Cells No Epithelial cells No organisms seen Normal [facility] Comment on above: Performed By: #### M 100.2000, M100.4001, M100.3000 ####[facility] [address] [place], [place], [id number] Hematocrit Auto (Bld) [Volum e fraction]Ordered By: Apple Lao on 05-28-2025 Hematocrit (Bld) [Volume fraction] 24.1 % Low 37-[address] [facility] Hemoglobin measurementOrdere d By: Apple Lao on 05-28-2025 Hemoglobin (Bld) [Mass/Vol] 7.9 g/dL Low 12.0-15.[address] [facility] Immature granulocytes/100 WB C Auto (Bld)Ordered By: Apple Lao on 05-28-2025 Immature granulocytes/100 WBC (Bld) 1.100 % High 0.0-0.[address] [facility] Comment on above: IG% - Immature Granu locytes (promyelocytes, myelocytes and metamyelocytes) > 1% indicates that a LEFT SHIFT is Present. MCV (mean corpuscular volume ) determinationOrdered By: Apple Lao on 05-28-2025 MCV (RBC) [Entitic vol] 89.3 fL 81-99 [facility] Mean corpuscular hemoglobin (MCH) determinationOrdered By: Apple Lao on 05-28-2025 MCH (RBC) [Entitic mass] 29.3 pg 27.0-32.[address] [facility] Mean corpuscular hemoglobin concentration (MCHC) determinationOrdered By: Apple Lao on 05-28-2025 MCHC (RBC) [Mass/Vol] 32.8 g/dL 32-36 [facility] Mean platelet volume determi nationOrdered By: Apple Lao on 05-28-2025 Platelet mean volume (Bld) [Entitic vol] 8.8 fL 6.2-12.[address] [facility] Monocyte percentageOrdered B y: Apple Lao on 05-28-2025 Monocytes/100 WBC (Bld) 7.9 % 0-10 [facility] Neutrophil percentageOrdered By: Apple Lao on 05-28-2025 Neutrophils/100 WBC (Bld) 77.6 % High 47-[address] [facility] Nucleated red blood cell per centageOrdered By: Apple Lao on 05-28-2025 Nucleated RBC/100 WBC (Bld) [Ratio] 0 % 0-[address] [facility] Platelet countOrdered By: Elena Lao on 05-28-2025 Platelets (Bld) [#/Vol] 331 10*3/uL 150-[address] [facility] Potassium measurement (mass/ volume)Ordered By: Apple Lao on 05-28-2025 Potassium (Unsp spec) [Mass/Vol] 3.3 mmol/L 3.3-5.[address] [facility] RBC Auto (Bld) [#/Vol]Ordere d By: Apple Lao on 05-28-2025 RBC (Bld) [#/Vol] 2.70 10*6/uL Low 4.2-5.4 [facility] Serum creatinine measurement (mass/volume)Ordered By: Apple Lao on 05-28-2025 Creatinine [Mass/Vol] 1.02 mg/dL 0.70-1.20 [facility] Serum glucose measurement (m ass/volume)Ordered By: Apple Lao on 05-28-2025 Glucose [Mass/Vol] 89 mg/dL 70-99 [facility] Serum or plasma calcium kenisha urement (mass/volume)Ordered By: Apple Lao on 05-28-2025 Calcium [Mass/Vol] 8.4 mg/dL 7.6-11.0 [facility] Serum or plasma urea nitroge n measurement (mass/volume)Ordered By: Apple Lao on 05-28-2025 Urea nitrogen [Mass/Vol] 10 mg/dL 4-[address] [facility] Sodium levelOrdered By: Frank Lao on 05-28-2025 Sodium [Moles/Vol] 141 mmol/L 133-145 [facility] White blood cell (WBC) count Ordered By: Apple Lao on 05-28-2025 WBC (Bld) [#/Vol] 11.5 10*3/uL High 4.4-11.0 [facility] Activated partial thrombopla stin time (aPTT) in platelet poor plasma by coagulation aOrdered By: Taz Andrews on 05-27-2025 aPTT Coag (PPP) [Time] 35.9 s 24.1-36.2 [facility] Anaerobic cultureOrdered By: Garrett Hernandez on 05-27-2025 Bacteria identified Anaer cx Nom (Unsp spec) No anaerobic bacteria isolated. [facility] Basic Metabolic Profile (BMP )on 05-27-2025 BUN/CRE 9.3 RATIO Low 10-[address] [facility] Comment on above: Order Comment: Pre-o perative Performed By: #### L 300.3900, L100.0100, L500.2500, L300.4310 ####[facility] [address] [place], [address] Calcium [Mass/Vol] 8.2 mg/dL Normal 7.6-11.0 [facility] Comment on above: Order Comment: Pre-o perative Performed By: #### L 300.3900, L100.0100, L500.2500, L300.4310 ####[facility] [address] [place], [address] Chloride [Moles/Vol] 113 mmol/L High 98-108 [facility] Comment on above: Order Comment: Pre-o perative Performed By: #### L 300.3900, L100.0100, L500.2500, L300.4310 ####[facility] [address] [place], [address] CO2 [Moles/Vol] 18.5 mmol/L Low 21.0-32.[address] [facility] Comment on above: Order Comment: Pre-o perative Performed By: #### L 300.3900, L100.0100, L500.2500, L300.4310 ####[facility] [address] [place], [address] Creatinine [Mass/Vol] 0.78 mg/dL Normal 0.70-1.20 [facility] Comment on above: Order Comment: Pre-o perative Performed By: #### L 300.3900, L100.0100, L500.2500, L300.4310 ####[facility] [address] [place], [address] ECRCL 122.21 ml/min Normal 50-[address] [facility] Comment on above: Order Comment: Pre-o perative Performed By: #### L 300.3900, L100.0100, L500.2500, L300.4310 ####[facility] [address] [place], [address] GAP 12 Normal 5-[address] [facility] Comment on above: Order Comment: Pre-o perative Performed By: #### L 300.3900, L100.0100, L500.2500, L300.4310 ####[facility] [address] [place], [address] GFR/1.73 sq M.predicted among non-blacks MDRD (S/P/Bld) [Vol rate/Area] 101 mL/min/{1.73_m2} Normal >[address] [facility] Comment on above: Order Comment: Pre-o perative Result Comment: mL/m in/1.73m2 CKD-EPI Creatinine Equation (2020) Performed By: #### L 300.3900, L100.0100, L500.2500, L300.4310 ####[facility] [address] [place], [address] Glucose [Mass/Vol] 70 mg/dL Normal 70-99 [facility] Comment on above: Order Comment: Pre-o perative Performed By: #### L 300.3900, L100.0100, L500.2500, L300.4310 ####[facility] [address] [place], [address] Potassium [Moles/Vol] 3.3 mmol/L Normal 3.3-5.1 [facility] Comment on above: Order Comment: Pre-o perative Performed By: #### L 300.3900, L100.0100, L500.2500, L300.4310 ####[facility] [address] [place], [address] Sodium [Moles/Vol] 144 mmol/L Normal 133-145 [facility] Comment on above: Order Comment: Pre-o perative Performed By: #### L 300.3900, L100.0100, L500.2500, L300.4310 ####[facility] [address] [place], [address] Urea nitrogen [Mass/Vol] 7 mg/dL Normal 4-[address] [facility] Comment on above: Order Comment: Pre-o perative Performed By: #### L 300.3900, L100.0100, L500.2500, L300.4310 ####[facility] [address] [place], [address] Body Fluid Culton 05-27-[address] [facility] Comment on above: Performed By: #### M 100.2000, M100.4001, M100.2900 ####[facility] [address] [place], [address] CBC W/Diff, Automatedon 05-01 Absolute Lymph 1.25 X10 3/uL Normal 0.83-4.[address] [facility] Comment on above: Order Comment: Comme nts: Pre-operative Performed By: #### L 300.3900, L100.0100, L500.2500, L300.4310 ####[facility] [address] [place], [address] Absolute Neut 9.7 X10 3/uL High 2.0-7.[address] [facility] Comment on above: Order Comment: Comme nts: Pre-operative Performed By: #### L 300.3900, L100.0100, L500.2500, L300.4310 ####[facility] [address] [place], [address] Basophils/100 WBC (Bld) 0.2 % Normal 0-1 [facility] Comment on above: Order Comment: Comme nts: Pre-operative Performed By: #### L 300.3900, L100.0100, L500.2500, L300.4310 ####[facility] [address] [place], [address] Eosinophils/100 WBC (Bld) 1.6 % Normal 0-[address] [facility] Comment on above: Order Comment: Comme nts: Pre-operative Performed By: #### L 300.3900, L100.0100, L500.2500, L300.4310 ####[facility] [address] [place], [address] Erythrocyte distribution width (RBC) [Ratio] 13.8 % Normal 11.6-14.[address] [facility] Comment on above: Order Comment: Comme nts: Pre-operative Performed By: #### L 300.3900, L100.0100, L500.2500, L300.4310 ####[facility] [address] [place], [address] Hematocrit (Bld) [Volume fraction] 24.8 % Low 37-[address] [facility] Comment on above: Order Comment: Comme nts: Pre-operative Performed By: #### L 300.3900, L100.0100, L500.2500, L300.4310 ####[facility] [address] [place], [address] Hemoglobin (Bld) [Mass/Vol] 7.9 g/dL Low 12.0-15.[address] [facility] Comment on above: Order Comment: Comme nts: Pre-operative Performed By: #### L 300.3900, L100.0100, L500.2500, L300.4310 ####[facility] [address] [place], [address] IG% 0.700 Normal 0.0-0.[address] [facility] Comment on above: Order Comment: Comme nts: Pre-operative Result Comment: IG% - Immature Granulocytes (promyelocytes, myelocytes andmetamyelocytes) > 1% indicates that a LEFT SHIFT is Present. Performed By: #### L 300.3900, L100.0100, L500.2500, L300.4310 ####[facility] [address] [place], [address] Lymphocytes/100 WBC (Bld) 10.3 % Low 19-[address] [facility] Comment on above: Order Comment: Comme nts: Pre-operative Performed By: #### L 300.3900, L100.0100, L500.2500, L300.4310 ####[facility] [address] [place], [address] MCH (RBC) [Entitic mass] 28.3 pg Normal 27.0-32.[address] [facility] Comment on above: Order Comment: Comme nts: Pre-operative Performed By: #### L 300.3900, L100.0100, L500.2500, L300.4310 ####[facility] [address] [place], [address] MCHC (RBC) [Mass/Vol] 31.9 g/dL Low 32-36 [facility] Comment on above: Order Comment: Comme nts: Pre-operative Performed By: #### L 300.3900, L100.0100, L500.2500, L300.4310 ####[facility] [address] [place], [address] MCV (RBC) [Entitic vol] 88.9 fL Normal 81-99 [facility] Comment on above: Order Comment: Comme nts: Pre-operative Performed By: #### L 300.3900, L100.0100, L500.2500, L300.4310 ####[facility] [address] [place], [address] Monocytes/100 WBC (Bld) 6.9 % Normal 0-10 [facility] Comment on above: Order Comment: Comme nts: Pre-operative Performed By: #### L 300.3900, L100.0100, L500.2500, L300.4310 ####[facility] [address] [place], [address] Neutrophils/100 WBC (Bld) 80.3 % High 47-[address] [facility] Comment on above: Order Comment: Comme nts: Pre-operative Performed By: #### L 300.3900, L100.0100, L500.2500, L300.4310 ####[facility] [address] [place], [address] Nucleated RBC (Bld) [#/Vol] 0 10*3/uL Normal 0-[address] [facility] Comment on above: Order Comment: Comme nts: Pre-operative Performed By: #### L 300.3900, L100.0100, L500.2500, L300.4310 ####[facility] [address] [place], [address] Platelet mean volume (Bld) [Entitic vol] 8.7 fL Normal 6.2-12.[address] [facility] Comment on above: Order Comment: Comme nts: Pre-operative Performed By: #### L 300.3900, L100.0100, L500.2500, L300.4310 ####[facility] [address] [place], [address] Platelets (Bld) [#/Vol] 363 10*3/uL Normal 150-[address] [facility] Comment on above: Order Comment: Comme nts: Pre-operative Performed By: #### L 300.3900, L100.0100, L500.2500, L300.4310 ####[facility] [address] [place], [address] RBC (Bld) [#/Vol] 2.79 10*6/uL Low 4.2-5.4 [facility] Comment on above: Order Comment: Comme nts: Pre-operative Performed By: #### L 300.3900, L100.0100, L500.2500, L300.4310 ####[facility] [address] [place], [address] RDW SD 45.1 fl High 35.1-43.[address] [facility] Comment on above: Order Comment: Comme nts: Pre-operative Performed By: #### L 300.3900, L100.0100, L500.2500, L300.4310 ####[facility] [address] [place], [place], [address] WBC (Bld) [#/Vol] 12.1 10*3/uL High 4.4-11.0 [facility] Comment on above: Order Comment: Comme nts: Pre-operative Performed By: #### L 300.3900, L100.0100, L500.2500, L300.4310 ####[facility] [address] [place], [place], [id number] Consultation - Infectious Dx on 05-27-2025 Consultation - Infectious Dx Normal [facility] Consultation - Surgicalon Consultation - Surgical Normal [facility] Fungus cultureOrdered By: St varun Hernandez on 05-27-2025 Fungus identified Cx Nom (Unsp spec) [facility] Fungus stainOrdered By: Yony Hernandez on 05-27-2025 Fungus identified Fungus stain Nom (Unsp spec) [facility] Gram stainOrdered By: Garrett Hernandez on 05-27-2025 Microscopic observation Gram stain Nom (Unsp spec) [facility] International normalized rat io (INR) calculationOrdered By: Taz Andrews on 05-27-2025 INR Coag (Bld) [Relative time] 1.1 {INR} [facility] MR/POSTOP.ANEon 05-27-2025 MR/POSTOP.ANE Normal [facility] MR/HIYZVQMF8hv 05-27-2025 MR/POSTOPAN2 Normal [facility] Operative Reporton Operative Report Normal [facility] Partial Thromboplast Timeon 05-27-2025 aPTT Coag (Bld) [Time] 35.9 s Normal 24.1-36.2 [facility] Comment on above: Order Comment: Comme nts: Pre-operative Performed By: #### L 300.3900, L100.0100, L500.2500, L300.4310 ####[facility] [id number] [place], [address] Prothrombin Time w/INRon INR Coag (PPP) [Relative time] 1.1 {INR} Normal [facility] Comment on above: Order Comment: Comme nts: Pre-operative Performed By: #### L 300.3900, L100.0100, L500.2500, L300.4310 ####[facility] [address] [place], [address] PT Coag (PPP) [Time] 14.3 s Normal 11.7-14.9 [facility] Comment on above: Order Comment: Comme nts: Pre-operative Performed By: #### L 300.3900, L100.0100, L500.2500, L300.4310 ####[facility] [address] [place], [address] Prothrombin timeOrdered By: Taz Andrews on 05-27-2025 PT Coag (PPP) [Time] 14.3 s 11.7-14.9 [facility] Routine wound cultureOrdered By: Garrett Hernandez on 05-27-2025 Microbial culture, routine Morganella morganii sp morgani Abnormal [facility] Abdomen/Pelvis without Conto n 05-26-2025 Abdomen/Pelvis without Cont Normal [facility] Bilirubin, totalOrdered By: Edel Diehl on 05-26-2025 Bilirubin [Mass/Vol] 0.49 mg/dL 0.00-1.30 [facility] Blood cultureOrdered By: Rachel Diehl on 05-26-2025 Bacteria identified Cx Nom (Bld) Negative Abnormal [facility] CBC W/Diff, Automatedon 05-01 Absolute Lymph 1.16 X10 3/uL Normal 0.83-4.[address] [facility] Comment on above: Performed By: #### L 503.6005, L100.0100 ####[facility] [address] [place], [address] Absolute Neut 12.4 X10 3/uL High 2.0-7.[address] [facility] Comment on above: Performed By: #### L 503.6005, L100.0100 ####[facility] [address] [place], [address] Basophils/100 WBC (Bld) 0.2 % Normal 0-1 [facility] Comment on above: Performed By: #### L 503.6005, L100.0100 ####[facility] [address] [place], [address] Eosinophils/100 WBC (Bld) 0.8 % Normal 0-[address] [facility] Comment on above: Performed By: #### L 503.6005, L100.0100 ####[facility] [address] [place], [address] Erythrocyte distribution width (RBC) [Ratio] 13.7 % Normal 11.6-14.[address] [facility] Comment on above: Performed By: #### L 503.6005, L100.0100 ####[facility] [address] [place], [address] Hematocrit (Bld) [Volume fraction] 29.4 % Low 37-[address] [facility] Comment on above: Performed By: #### L 503.6005, L100.0100 ####[facility] [address] [place], [address] Hemoglobin (Bld) [Mass/Vol] 9.5 g/dL Low 12.0-15.[address] [facility] Comment on above: Performed By: #### L 503.6005, L100.0100 ####[facility] [address] [place], [address] IG% 0.400 Normal 0.0-0.[address] [facility] Comment on above: Result Comment: IG% - Immature Granulocytes (promyelocytes, myelocytes andmetamyelocytes) > 1% indicates that a LEFT SHIFT is Present. Performed By: #### L 503.6005, L100.0100 ####[facility] [address] [place], [address] Lymphocytes/100 WBC (Bld) 7.9 % Low 19-[address] [facility] Comment on above: Performed By: #### L 503.6005, L100.0100 ####[facility] [address] [place], [address] MCH (RBC) [Entitic mass] 28.6 pg Normal 27.0-32.[address] [facility] Comment on above: Performed By: #### L 503.6005, L100.0100 ####[facility] [address] [place], [address] MCHC (RBC) [Mass/Vol] 32.3 g/dL Normal 32-36 [facility] Comment on above: Performed By: #### L 503.6005, L100.0100 ####[facility] [address] [place], [address] MCV (RBC) [Entitic vol] 88.6 fL Normal 81-99 [facility] Comment on above: Performed By: #### L 503.6005, L100.0100 ####[facility] [address] [place], [address] Monocytes/100 WBC (Bld) 6.1 % Normal 0-10 [facility] Comment on above: Performed By: #### L 503.6005, L100.0100 ####[facility] [address] [place], [address] Neutrophils/100 WBC (Bld) 84.6 % High 47-[address] [facility] Comment on above: Performed By: #### L 503.6005, L100.0100 ####[facility] [address] [place], [address] Nucleated RBC (Bld) [#/Vol] 0 10*3/uL Normal 0-[address] [facility] Comment on above: Performed By: #### L 503.6005, L100.0100 ####[facility] [address] [place], [address] Platelet mean volume (Bld) [Entitic vol] 8.5 fL Normal 6.2-12.[address] [facility] Comment on above: Performed By: #### L 503.6005, L100.0100 ####[facility] [address] [place], [address] Platelets (Bld) [#/Vol] 397 10*3/uL Normal 150-[address] [facility] Comment on above: Performed By: #### L 503.6005, L100.0100 ####[facility] [address] [place], [address] RBC (Bld) [#/Vol] 3.32 10*6/uL Low 4.2-5.4 [facility] Comment on above: Performed By: #### L 503.6005, L100.0100 ####[facility] [address] [place], [address] RDW SD 44.6 fl High 35.1-43.[address] [facility] Comment on above: Performed By: #### L 503.6005, L100.0100 ####[facility] [address] [place], [address] WBC (Bld) [#/Vol] 14.7 10*3/uL High 4.4-11.0 [facility] Comment on above: Performed By: #### L 503.6005, L100.0100 ####[facility] [address] [place], [address] Absolute Neut Normal 2.0-7.[address] [facility] Comment on above: Result Comment: Canc elled via OM: MD Ordered Performed By: #### L 100.0100 ####[facility] [address] [place], [address] HCT Normal 37-[address] [facility] Comment on above: Result Comment: Canc elled via OM: MD Ordered Performed By: #### L 100.0100 ####[facility] [address] [place], [address] HGB Normal 12.0-15.[address] [facility] Comment on above: Result Comment: Canc elled via OM: MD Ordered Performed By: #### L 100.0100 ####[facility] [address] [place], [address] MCH Normal 27.0-32.[address] [facility] Comment on above: Result Comment: Canc elled via OM: MD Ordered Performed By: #### L 100.0100 ####[facility] [address] [place], [address] MCHC Normal 32-[address] [facility] Comment on above: Result Comment: Canc elled via OM: MD Ordered Performed By: #### L 100.0100 ####[facility] [address] [place], [address] MCV Normal 81-[address] [facility] Comment on above: Result Comment: Canc elled via OM: MD Ordered Performed By: #### L 100.0100 ####[facility] [address] [place], [address] NEUT% Normal 47-[address] [facility] Comment on above: Result Comment: Canc elled via OM: MD Ordered Performed By: #### L 100.0100 ####[facility] [address] [place], [address] PLT Normal 150-[address] [facility] Comment on above: Result Comment: Canc elled via OM: MD Ordered Performed By: #### L 100.0100 ####[facility] [address] [place], [address] RBC Normal 4.2-5.[address] [facility] Comment on above: Result Comment: Canc elled via OM: MD Ordered Performed By: #### L 100.0100 ####[facility] [address] [place], [address] RDW CV Normal 11.6-14.[address] [facility] Comment on above: Result Comment: Canc elled via OM: MD Ordered Performed By: #### L 100.0100 ####[facility] [address] [place], [address] RDW SD Normal 35.1-43.[address] [facility] Comment on above: Result Comment: Canc elled via OM: MD Ordered Performed By: #### L 100.0100 ####[facility] [address] [place], [address] WBC Normal 4.4-11.[address] [facility] Comment on above: Result Comment: Canc elled via OM: MD Ordered Performed By: #### L 100.0100 ####[facility] [address] [place], [address] Absolute Lymph 1.52 X10 3/uL Normal 0.83-4.[address] [facility] Comment on above: Performed By: #### L 500.4050, L100.0100 ####[facility] [address] [place], [address] Absolute Neut 11.4 X10 3/uL High 2.0-7.[address] [facility] Comment on above: Performed By: #### L 500.4050, L100.0100 ####[facility] [address] [place], [address] Basophils/100 WBC (Bld) 0.2 % Normal 0-1 [facility] Comment on above: Performed By: #### L 500.4050, L100.0100 ####[facility] [address] [place], [address] Eosinophils/100 WBC (Bld) 1.3 % Normal 0-[address] [facility] Comment on above: Performed By: #### L 500.4050, L100.0100 ####[facility] [address] [place], [address] Erythrocyte distribution width (RBC) [Ratio] 13.8 % Normal 11.6-14.[address] [facility] Comment on above: Performed By: #### L 500.4050, L100.0100 ####[facility] [address] [place], [address] Hematocrit (Bld) [Volume fraction] 26.0 % Low 37-[address] [facility] Comment on above: Performed By: #### L 500.4050, L100.0100 ####[facility] [address] [place], [address] Hemoglobin (Bld) [Mass/Vol] 8.6 g/dL Low 12.0-15.[address] [facility] Comment on above: Performed By: #### L 500.4050, L100.0100 ####[facility] [address] [place], [address] IG% 0.600 Normal 0.0-0.[address] [facility] Comment on above: Result Comment: IG% - Immature Granulocytes (promyelocytes, myelocytes andmetamyelocytes) > 1% indicates that a LEFT SHIFT is Present. Performed By: #### L 500.4050, L100.0100 ####[facility] [address] [place], [address] Lymphocytes/100 WBC (Bld) 10.7 % Low 19-[address] [facility] Comment on above: Performed By: #### L 500.4050, L100.0100 ####[facility] [address] [place], [address] MCH (RBC) [Entitic mass] 29.4 pg Normal 27.0-32.[address] [facility] Comment on above: Performed By: #### L 500.4050, L100.0100 ####[facility] [address] [place], [address] MCHC (RBC) [Mass/Vol] 33.1 g/dL Normal 32-36 [facility] Comment on above: Performed By: #### L 500.4050, L100.0100 ####[facility] [address] [place], [address] MCV (RBC) [Entitic vol] 88.7 fL Normal 81-99 [facility] Comment on above: Performed By: #### L 500.4050, L100.0100 ####[facility] [address] [place], [address] Monocytes/100 WBC (Bld) 7.0 % Normal 0-10 [facility] Comment on above: Performed By: #### L 500.4050, L100.0100 ####[facility] [address] [place], [address] Neutrophils/100 WBC (Bld) 80.2 % High 47-[address] [facility] Comment on above: Performed By: #### L 500.4050, L100.0100 ####[facility] [address] [place], [address] Nucleated RBC (Bld) [#/Vol] 0 10*3/uL Normal 0-[address] [facility] Comment on above: Performed By: #### L 500.4050, L100.0100 ####[facility] [address] [place], [address] Platelet mean volume (Bld) [Entitic vol] 8.5 fL Normal 6.2-12.[address] [facility] Comment on above: Performed By: #### L 500.4050, L100.0100 ####[facility] [address] [place], [address] Platelets (Bld) [#/Vol] 324 10*3/uL Normal 150-[address] [facility] Comment on above: Performed By: #### L 500.4050, L100.0100 ####[facility] [address] [place], [address] RBC (Bld) [#/Vol] 2.93 10*6/uL Low 4.2-5.4 [facility] Comment on above: Performed By: #### L 500.4050, L100.0100 ####[facility] [address] [place], [address] RDW SD 45.1 fl High 35.1-43.[address] [facility] Comment on above: Performed By: #### L 500.4050, L100.0100 ####[facility] [address] [place], [address] WBC (Bld) [#/Vol] 14.2 10*3/uL High 4.4-11.0 [facility] Comment on above: Performed By: #### L 500.4050, L100.0100 ####[facility] [address] [place], [address] Absolute Neut Normal 2.0-7.[address] [facility] Comment on above: Result Comment: DUPL ICATE SEE H229 Performed By: #### L 100.0100 ####[facility] [address] [place], [address] HCT Normal 37-[address] [facility] Comment on above: Result Comment: DUPL ICATE SEE H229 Performed By: #### L 100.0100 ####[facility] [address] [place], [address] HGB Normal 12.0-15.[address] [facility] Comment on above: Result Comment: DUPL ICATE SEE H229 Performed By: #### L 100.0100 ####[facility] [address] [place], [address] MCH Normal 27.0-32.[address] [facility] Comment on above: Result Comment: DUPL ICATE SEE H229 Performed By: #### L 100.0100 ####[facility] [address] [place], [address] MCHC Normal 32-[address] [facility] Comment on above: Result Comment: DUPL ICATE SEE H229 Performed By: #### L 100.0100 ####[facility] [address] [place], [address] MCV Normal 81-[address] [facility] Comment on above: Result Comment: DUPL ICATE SEE H229 Performed By: #### L 100.0100 ####[facility] [address] [place], [address] NEUT% Normal 47-[address] [facility] Comment on above: Result Comment: DUPL ICATE SEE H229 Performed By: #### L 100.0100 ####[facility] [address] [place], [address] PLT Normal 150-[address] [facility] Comment on above: Result Comment: DUPL ICATE SEE H229 Performed By: #### L 100.0100 ####[facility] [address] [place], [address] RBC Normal 4.2-5.[address] [facility] Comment on above: Result Comment: DUPL ICATE SEE H229 Performed By: #### L 100.0100 ####[facility] [address] [place], [address] RDW CV Normal 11.6-14.[address] [facility] Comment on above: Result Comment: DUPL ICATE SEE H229 Performed By: #### L 100.0100 ####[facility] [address] [place], [address] RDW SD Normal 35.1-43.[address] [facility] Comment on above: Result Comment: DUPL ICATE SEE H229 Performed By: #### L 100.0100 ####[facility] [address] [place], [address] WBC Normal 4.4-11.[address] [facility] Comment on above: Result Comment: DUPL ICATE SEE H229 Performed By: #### L 100.0100 ####[facility] [address] [place], [address] Comprehensive Metabolic Prof [facility] 05-26-2025 Albumin [Mass/Vol] 2.9 g/dL Low 3.5-5.0 [facility] Comment on above: Performed By: #### L 500.4050, L100.0100 ####[facility] [address] [place], [address] Albumin/Globulin [Mass ratio] 1.2 {ratio} Normal 0.9-2.[address] [facility] Comment on above: Performed By: #### L 500.4050, L100.0100 ####[facility] [address] [place], [address] ALK PHOS 98 U/L Normal 35-[address] [facility] Comment on above: Performed By: #### L 500.4050, L100.0100 ####[facility] [address] [place], [address] ALT [Catalytic activity/Vol] 21 U/L Normal <=[address] [facility] Comment on above: Performed By: #### L 500.4050, L100.0100 ####[facility] [address] [place], [address] AST [Catalytic activity/Vol] 21 U/L Normal <=[address] [facility] Comment on above: Performed By: #### L 500.4050, L100.0100 ####[facility] [address] [place], [address] Bilirubin [Mass/Vol] 0.49 mg/dL Normal 0.00-1.30 [facility] Comment on above: Performed By: #### L 500.4050, L100.0100 ####[facility] [address] [place], [address] BUN/CRE 17.1 RATIO Normal 10-[address] [facility] Comment on above: Performed By: #### L 500.4050, L100.0100 ####[facility] [address] [place], [address] Calcium [Mass/Vol] 8.1 mg/dL Normal 7.6-11.0 [facility] Comment on above: Performed By: #### L 500.4050, L100.0100 ####[facility] [address] [place], [address] Chloride [Moles/Vol] 111 mmol/L High 98-108 [facility] Comment on above: Performed By: #### L 500.4050, L100.0100 ####[facility] [address] [place], [address] CO2 [Moles/Vol] 17.5 mmol/L Low 21.0-32.[address] [facility] Comment on above: Performed By: #### L 500.4050, L100.0100 ####[facility] [address] [place], [address] Creatinine [Mass/Vol] 0.49 mg/dL Low 0.70-1.20 [facility] Comment on above: Performed By: #### L 500.4050, L100.0100 ####[facility] [address] [place], [address] ECRCL 194.54 ml/min Normal 50-[address] [facility] Comment on above: Performed By: #### L 500.4050, L100.0100 ####[facility] [address] [place], [address] GAP 11 Normal 5-[address] [facility] Comment on above: Performed By: #### L 500.4050, L100.0100 ####[facility] [address] [place], [address] GFR/1.73 sq M.predicted among non-blacks MDRD (S/P/Bld) [Vol rate/Area] 126 mL/min/{1.73_m2} Normal >[address] [facility] Comment on above: Result Comment: mL/m in/1.73m2 CKD-EPI Creatinine Equation (2020) Performed By: #### L 500.4050, L100.0100 ####[facility] [address] [place], [address] Globulin (S) [Mass/Vol] 2.4 g/dL Normal 2.2-4.2 [facility] Comment on above: Performed By: #### L 500.4050, L100.0100 ####[facility] [address] [place], [address] Glucose [Mass/Vol] 67 mg/dL Low 70-99 [facility] Comment on above: Performed By: #### L 500.4050, L100.0100 ####[facility] [address] [place], [address] Potassium [Moles/Vol] 3.2 mmol/L Low 3.3-5.1 [facility] Comment on above: Performed By: #### L 500.4050, L100.0100 ####[facility] [address] [place], [address] Sodium [Moles/Vol] 139 mmol/L Normal 133-145 [facility] Comment on above: Performed By: #### L 500.4050, L100.0100 ####[facility] [address] [place], [address] T PROT 5.3 g/dL Low 5.9-8.[address] [facility] Comment on above: Performed By: #### L 500.4050, L100.0100 ####[facility] [address] [place], [address] Urea nitrogen [Mass/Vol] 8 mg/dL Normal 4-[address] [facility] Comment on above: Performed By: #### L 500.4050, L100.0100 ####[facility] [address] [place], [address] Electrocardiogram reportOrde red By: Vitor Olguin on 05-26-2025 EKG study [facility] [address] [place] [address] 12 Lead EKG 05/24/25 1405 MR#: [id number] Acct: [id number] Name: BARBY CABALLERO Rep #:[id number] : 1990 34 From: Vitor Olguin MD Attending Dr: Dr. Edel Bullock DO Status: ADM IN Ordering Dr: Pee Sargent DO Date: 05/24/25 Location: [facility]3 Sex: F C Admitted: 05/24/25 Test Reason [...] Abnormal ECG When compared with ECG of 11-Feb-2025 20:35, No significant change was found Confirmed by VITOR OLGUIN ([id number]), newspaper or periodical editor DAYNE HOGAN ([id number]) on 05/26/2025 1:58:15 PM Referred By: Confirmed By: VITOR OLGUIN 05/26/25 1358 Date _ Vitor Olguin MD CC: Dr. Steffen Eisenberg MD; Dr. Pee Sargent DO; Dr. Edel Bullock DO~ Signed [facility] Other Phone: Laboratory - Chemistry and C hemistry - challengeOrdered By: Edel Diehl on 05-26-2025 AST [Catalytic activity/Vol] 21 U/L <[address] [facility] Lactic Acidon 05-26-2025 Lactate [Moles/Vol] 1.3 mmol/L Normal 0.0-2.0 [facility] Comment on above: Order Comment: Y Performed By: #### L 503.6005, L100.0100 ####[facility] [address] [place], [address] Lactic acid measurementOrder ed By: Edel Diehl on 05-26-2025 Lactate [Moles/Vol] 1.3 mmol/L 0.0-2.0 [facility] No Panel InformationOrdered By: Edel Diehl on 05-26-2025 21 U/L <[address] [facility] Organism identificationOrder ed By: Edel Diehl on 05-26-2025 Microorganism identified Cx Nom (Unsp spec) Negative Abnormal [facility] Serum globulin measurementOr dered By: Edel Diehl on 05-26-2025 Globulin (S) [Mass/Vol] 2.4 g/dL 2.2-4.2 [facility] Serum or plasma alanine jung otransferase (ALT) measurementOrdered By: Edel Diehl on 05-26-2025 ALT [Catalytic activity/Vol] 21 U/L <[address] [facility] Serum or plasma albumin kenisha urement (mass/volume)Ordered By: Edel Diehl on 05-26-2025 Albumin [Mass/Vol] 2.9 g/dL Low 3.5-5.0 [facility] Serum or plasma albumin/glob ulin mass ratioOrdered By: Edel Diehl on 05-26-2025 Albumin/Globulin [Mass ratio] 1.2 {ratio} 0.9-2.[address] [facility] Serum or plasma alkaline ct sphatase measurementOrdered By: Edel Diehl on 05-26-2025 ALP [Catalytic activity/Vol] 98 U/L 35-[address] [facility] Total proteinOrdered By: Rachel Diehl on 05-26-2025 Protein [Mass/Vol] 5.3 g/dL Low 5.9-8.4 [facility] 12 Lead EKGon 05-25-2025 12 Lead EKG Normal [facility] Anaerobic cultureOrdered By: Edel Diehl on 05-25-2025 Bacteria identified Anaer cx Nom (Unsp spec) No anaerobic bacteria isolated. [facility] Biopsy/Inj or Needle Placeme nton 05-25-2025 Biopsy/Inj or Needle Placement Normal [facility] Body fluid cultureOrdered By : Edel Diehl on 05-25-2025 Microbial culture, body fluid Morganella morganii sp morgani Abnormal [facility] CBC W/Diff, Automatedon - Absolute Lymph 1.45 X10 3/uL Normal 0.83-4.[address] [facility] Comment on above: Performed By: #### L 500.4050, L100.0100, L300.3900 ####[facility] [address] [place], [address] Absolute Neut 15.9 X10 3/uL High 2.0-7.[address] [facility] Comment on above: Performed By: #### L 500.4050, L100.0100, L300.3900 ####[facility] [address] [place], [address] Basophils/100 WBC (Bld) 0.3 % Normal 0-1 [facility] Comment on above: Performed By: #### L 500.4050, L100.0100, L300.3900 ####[facility] [address] [place], [address] Eosinophils/100 WBC (Bld) 0.1 % Normal 0-[address] [facility] Comment on above: Performed By: #### L 500.4050, L100.0100, L300.3900 ####[facility] [address] [place], [address] Erythrocyte distribution width (RBC) [Ratio] 13.5 % Normal 11.6-14.[address] [facility] Comment on above: Performed By: #### L 500.4050, L100.0100, L300.3900 ####[facility] [address] [place], [address] Hematocrit (Bld) [Volume fraction] 26.7 % Low 37-[address] [facility] Comment on above: Performed By: #### L 500.4050, L100.0100, L300.3900 ####[facility] [address] [place], [address] Hemoglobin (Bld) [Mass/Vol] 8.9 g/dL Low 12.0-15.[address] [facility] Comment on above: Performed By: #### L 500.4050, L100.0100, L300.3900 ####[facility] [address] [place], [address] IG% 0.700 Normal 0.0-0.[address] [facility] Comment on above: Result Comment: IG% - Immature Granulocytes (promyelocytes, myelocytes andmetamyelocytes) > 1% indicates that a LEFT SHIFT is Present. Performed By: #### L 500.4050, L100.0100, L300.3900 ####[facility] [address] [place], [address] Lymphocytes/100 WBC (Bld) 7.7 % Low 19-[address] [facility] Comment on above: Performed By: #### L 500.4050, L100.0100, L300.3900 ####[facility] [address] [place], [address] MCH (RBC) [Entitic mass] 29.5 pg Normal 27.0-32.[address] [facility] Comment on above: Performed By: #### L 500.4050, L100.0100, L300.3900 ####[facility] [address] [place], [address] MCHC (RBC) [Mass/Vol] 33.3 g/dL Normal 32-36 [facility] Comment on above: Performed By: #### L 500.4050, L100.0100, L300.3900 ####[facility] [address] [place], [address] MCV (RBC) [Entitic vol] 88.4 fL Normal 81-99 [facility] Comment on above: Performed By: #### L 500.4050, L100.0100, L300.3900 ####[facility] [address] [place], [address] Monocytes/100 WBC (Bld) 6.5 % Normal 0-10 [facility] Comment on above: Performed By: #### L 500.4050, L100.0100, L300.3900 ####[facility] [address] [place], [address] Neutrophils/100 WBC (Bld) 84.7 % High 47-[address] [facility] Comment on above: Performed By: #### L 500.4050, L100.0100, L300.3900 ####[facility] [address] [place], [address] Nucleated RBC (Bld) [#/Vol] 0 10*3/uL Normal 0-[address] [facility] Comment on above: Performed By: #### L 500.4050, L100.0100, L300.3900 ####[facility] [address] [place], [address] Platelet mean volume (Bld) [Entitic vol] 8.2 fL Normal 6.2-12.[address] [facility] Comment on above: Performed By: #### L 500.4050, L100.0100, L300.3900 ####[facility] [address] [place], [address] Platelets (Bld) [#/Vol] 343 10*3/uL Normal 150-[address] [facility] Comment on above: Performed By: #### L 500.4050, L100.0100, L300.3900 ####[facility] [address] [place], [address] RBC (Bld) [#/Vol] 3.02 10*6/uL Low 4.2-5.4 [facility] Comment on above: Performed By: #### L 500.4050, L100.0100, L300.3900 ####[facility] [address] [place], [address] RDW SD 43.8 fl Normal 35.1-43.[address] [facility] Comment on above: Performed By: #### L 500.4050, L100.0100, L300.3900 ####[facility] [address] [place], [address] WBC (Bld) [#/Vol] 18.8 10*3/uL High 4.4-11.0 [facility] Comment on above: Performed By: #### L 500.4050, L100.0100, L300.3900 ####[facility] [address] [place], [address] Comprehensive Metabolic Prof ilon 05-25-2025 Albumin [Mass/Vol] 3.2 g/dL Low 3.5-5.0 [facility] Comment on above: Performed By: #### L 500.4050, L100.0100, L300.3900 ####[facility] [address] [place], [address] Albumin/Globulin [Mass ratio] 1.4 {ratio} Normal 0.9-2.[address] [facility] Comment on above: Performed By: #### L 500.4050, L100.0100, L300.3900 ####[facility] [address] [place], [address] ALK PHOS 90 U/L Normal 35-[address] [facility] Comment on above: Performed By: #### L 500.4050, L100.0100, L300.3900 ####[facility] [address] [place], [address] ALT [Catalytic activity/Vol] 22 U/L Normal <=[address] [facility] Comment on above: Performed By: #### L 500.4050, L100.0100, L300.3900 ####[facility] [address] [place], [address] AST [Catalytic activity/Vol] 22 U/L Normal <=[address] [facility] Comment on above: Performed By: #### L 500.4050, L100.0100, L300.3900 ####[facility] [address] [place], [address] Bilirubin [Mass/Vol] 0.66 mg/dL Normal 0.00-1.30 [facility] Comment on above: Performed By: #### L 500.4050, L100.0100, L300.3900 ####[facility] [address] [place], [address] BUN/CRE 16.4 RATIO Normal 10-[address] [facility] Comment on above: Performed By: #### L 500.4050, L100.0100, L300.3900 ####[facility] [address] [place], [address] Calcium [Mass/Vol] 7.6 mg/dL Normal 7.6-11.0 [facility] Comment on above: Performed By: #### L 500.4050, L100.0100, L300.3900 ####[facility] [address] [place], [address] Chloride [Moles/Vol] 115 mmol/L High 98-108 [facility] Comment on above: Performed By: #### L 500.4050, L100.0100, L300.3900 ####[facility] [address] [place], [address] CO2 [Moles/Vol] 17.3 mmol/L Low 21.0-32.[address] [facility] Comment on above: Performed By: #### L 500.4050, L100.0100, L300.3900 ####[facility] [address] [place], [address] Creatinine [Mass/Vol] 0.54 mg/dL Low 0.70-1.20 [facility] Comment on above: Performed By: #### L 500.4050, L100.0100, L300.3900 ####[facility] [address] [place], [address] ECRCL 176.53 ml/min Normal 50-[address] [facility] Comment on above: Performed By: #### L 500.4050, L100.0100, L300.3900 ####[facility] [address] [place], [address] GAP 12 Normal 5-[address] [facility] Comment on above: Performed By: #### L 500.4050, L100.0100, L300.3900 ####[facility] [address] [place], [address] GFR/1.73 sq M.predicted among non-blacks MDRD (S/P/Bld) [Vol rate/Area] 123 mL/min/{1.73_m2} Normal >[address] [facility] Comment on above: Result Comment: mL/m in/1.73m2 CKD-EPI Creatinine Equation (2020) Performed By: #### L 500.4050, L100.0100, L300.3900 ####[facility] [address] [place], [address] Globulin (S) [Mass/Vol] 2.2 g/dL Normal 2.2-4.2 [facility] Comment on above: Performed By: #### L 500.4050, L100.0100, L300.3900 ####[facility] [address] [place], [address] Glucose [Mass/Vol] 76 mg/dL Normal 70-99 [facility] Comment on above: Performed By: #### L 500.4050, L100.0100, L300.3900 ####[facility] [address] [place], [address] Potassium [Moles/Vol] 3.0 mmol/L Low 3.3-5.1 [facility] Comment on above: Performed By: #### L 500.4050, L100.0100, L300.3900 ####[facility] [address] [place], [address] Sodium [Moles/Vol] 144 mmol/L Normal 133-145 [facility] Comment on above: Performed By: #### L 500.4050, L100.0100, L300.3900 ####[facility] [address] [place], [address] T PROT 5.4 g/dL Low 5.9-8.[address] [facility] Comment on above: Performed By: #### L 500.4050, L100.0100, L300.3900 ####[facility] [address] [place], [address] Urea nitrogen [Mass/Vol] 9 mg/dL Normal 4-[address] [facility] Comment on above: Performed By: #### L 500.4050, L100.0100, L300.3900 ####[facility] [address] [place], [address] Gram Stainon 05-25-2025 GS Negative Normal [facility] Comment on above: Performed By: #### M 100.2000, M100.4001, M100.2900 ####[facility] [address] [place], [address] Gram stainOrdered By: Ronda Diehl on 05-25-2025 Microscopic observation Gram stain Nom (Unsp spec) [facility] Lactic Acidon 05-25-2025 Lactate [Moles/Vol] mmol/L Normal 0.0-2.0 [facility] Comment on above: Performed By: #### L 503.6005 ####[facility] [address] [place], [address] Prothrombin Time w/INRon INR Coag (PPP) [Relative time] 1.2 {INR} Normal [facility] Comment on above: Performed By: #### L 500.4050, L100.0100, L300.3900 ####[facility] [address] [place], [address] PT Coag (PPP) [Time] 15.5 s High 11.7-14.9 [facility] Comment on above: Performed By: #### L 500.4050, L100.0100, L300.3900 ####[facility] [address] [place], [place], [id number] 12 Lead EKGon 05-24-2025 12 Lead EKG Normal [facility] Abdomen/Pelvis W IV Cont ONL Yon 05-24-2025 Abdomen/Pelvis W IV Cont ONLY Normal [facility] Absolute lymphocyte countOrd ered By: Pee Sargent on 05-24-2025 Lymphocytes Auto (Unsp spec) [#/Vol] 0.76 10*3/uL Low 0.83-4.[address] [facility] Absolute neutrophil countOrd ered By: Pee Sargent on 05-24-2025 Neutrophils (Bld) [#/Vol] 16.6 10*3/uL High 2.0-7.[address] [facility] Activated partial thrombopla stin time (aPTT) in platelet poor plasma by coagulation aOrdered By: Pee Sagrent on 05-24-2025 aPTT Coag (PPP) [Time] 22.5 s Low 24.1-36.2 [facility] Anion gap in Serum or Plasma Ordered By: Pee Sargent on 05-24-2025 Anion gap [Moles/Vol] 13 mmol/L 5-15 [facility] Automated lymphocyte count a s percentage of total leukocytesOrdered By: Pee Sargent on 05-24-2025 Lymphocytes/100 WBC Auto (Unsp spec) 4.1 % Low 19-[address] [facility] BUN/creatinine ratioOrdered By: Pee Sargent on 05-24-2025 Urea nitrogen/Creatinine [Mass ratio] 15.9 mg/mg 10-[address] [facility] Basic Metabolic Profile (BMP )on 05-24-2025 BUN/CRE 15.9 RATIO Normal - [facility] Comment on above: Performed By: #### L 503.6005, L300.3900, L500.2500, L300.4310, L100.0100 ####[facility] [address] [place], [address] Calcium [Mass/Vol] 7.7 mg/dL Normal 7.6-11.0 [facility] Comment on above: Performed By: #### L 503.6005, L300.3900, L500.2500, L300.4310, L100.0100 ####[facility] [address] [place], [address] Chloride [Moles/Vol] 111 mmol/L High 98-108 [facility] Comment on above: Performed By: #### L 503.6005, L300.3900, L500.2500, L300.4310, L100.0100 ####[facility] [address] [place], [address] CO2 [Moles/Vol] 18.0 mmol/L Low 21.0-32.[address] [facility] Comment on above: Performed By: #### L 503.6005, L300.3900, L500.2500, L300.4310, L100.0100 ####[facility] [address] [place], [address] Creatinine [Mass/Vol] 0.54 mg/dL Low 0.70-1.20 [facility] Comment on above: Performed By: #### L 503.6005, L300.3900, L500.2500, L300.4310, L100.0100 ####[facility] [address] [place], [address] ECRCL 177.83 ml/min Normal 50-[address] [facility] Comment on above: Performed By: #### L 503.6005, L300.3900, L500.2500, L300.4310, L100.0100 ####[facility] [address] [place], [address] GAP 13 Normal 5-[address] [facility] Comment on above: Performed By: #### L 503.6005, L300.3900, L500.2500, L300.4310, L100.0100 ####[facility] [address] [place], [address] GFR/1.73 sq M.predicted among non-blacks MDRD (S/P/Bld) [Vol rate/Area] 123 mL/min/{1.73_m2} Normal >[address] [facility] Comment on above: Result Comment: mL/m in/1.73m2 CKD-EPI Creatinine Equation (2020) Performed By: #### L 503.6005, L300.3900, L500.2500, L300.4310, L100.0100 ####[facility] [address] [place], [address] Glucose [Mass/Vol] 105 mg/dL High 70-99 [facility] Comment on above: Performed By: #### L 503.6005, L300.3900, L500.2500, L300.4310, L100.0100 ####[facility] [address] [place], [address] Potassium [Moles/Vol] 3.5 mmol/L Normal 3.3-5.1 [facility] Comment on above: Result Comment: Hemo lysis present, Results??could be affected.?? Performed By: #### L 503.6005, L300.3900, L500.2500, L300.4310, L100.0100 ####[facility] [address] [place], [address] Sodium [Moles/Vol] 142 mmol/L Normal 133-145 [facility] Comment on above: Performed By: #### L 503.6005, L300.3900, L500.2500, L300.4310, L100.0100 ####[facility] [address] [place], [address] Urea nitrogen [Mass/Vol] 9 mg/dL Normal 4-[address] [facility] Comment on above: Performed By: #### L 503.6005, L300.3900, L500.2500, L300.4310, L100.0100 ####[facility] [address] [place], [address] Basophil percentageOrdered B y: Pee Sargent on 05-24-2025 Basophils/100 WBC (Bld) 0.2 % 0-1 [facility] Bilirubin Test strip Ql (U)O rdered By: Pee Sargent on 05-24-2025 Bilirubin Ql (U) Negative Negative [facility] Blood cultureOrdered By: Rachel Diehl on 05-24-2025 Bacteria identified Cx Nom (Bld) No growth in [address] [facility] Bacteria identified Cx Nom (Bld) No growth in [address] [facility] CBC W/Diff, Automatedon 05-01 Absolute Lymph 1.07 X10 3/uL Normal 0.83-4.[address] [facility] Comment on above: Performed By: #### L 100.0100 ####[facility] [address] [place], [address] Absolute Neut 17.8 X10 3/uL High 2.0-7.[address] [facility] Comment on above: Performed By: #### L 100.0100 ####[facility] [address] [place], [address] Basophils/100 WBC (Bld) 0.2 % Normal 0-1 [facility] Comment on above: Performed By: #### L 100.0100 ####[facility] [address] [place], [address] Eosinophils/100 WBC (Bld) 0.1 % Normal 0-[address] [facility] Comment on above: Performed By: #### L 100.0100 ####[facility] [address] [place], [address] Erythrocyte distribution width (RBC) [Ratio] 13.4 % Normal 11.6-14.[address] [facility] Comment on above: Performed By: #### L 100.0100 ####[facility] [address] [place], [address] Hematocrit (Bld) [Volume fraction] 28.6 % Low 37-[address] [facility] Comment on above: Performed By: #### L 100.0100 ####[facility] [address] [place], [address] Hemoglobin (Bld) [Mass/Vol] 9.5 g/dL Low 12.0-15.[address] [facility] Comment on above: Performed By: #### L 100.0100 ####[facility] [address] [place], [address] IG% 0.800 Normal 0.0-0.[address] [facility] Comment on above: Result Comment: IG% - Immature Granulocytes (promyelocytes, myelocytes andmetamyelocytes) > 1% indicates that a LEFT SHIFT is Present. Performed By: #### L 100.0100 ####[facility] [address] [place], [address] Lymphocytes/100 WBC (Bld) 5.2 % Low 19-[address] [facility] Comment on above: Performed By: #### L 100.0100 ####[facility] [address] [place], [address] MCH (RBC) [Entitic mass] 29.2 pg Normal 27.0-32.[address] [facility] Comment on above: Performed By: #### L 100.0100 ####[facility] [address] [place], [address] MCHC (RBC) [Mass/Vol] 33.2 g/dL Normal 32-36 [facility] Comment on above: Performed By: #### L 100.0100 ####[facility] [address] [place], [address] MCV (RBC) [Entitic vol] 88.0 fL Normal 81-99 [facility] Comment on above: Performed By: #### L 100.0100 ####[facility] [address] [place], [address] Monocytes/100 WBC (Bld) 6.7 % Normal 0-10 [facility] Comment on above: Performed By: #### L 100.0100 ####[facility] [address] [place], [address] Neutrophils/100 WBC (Bld) 87.0 % High 47-[address] [facility] Comment on above: Performed By: #### L 100.0100 ####[facility] [address] [place], [address] Nucleated RBC (Bld) [#/Vol] 0 10*3/uL Normal 0-[address] [facility] Comment on above: Performed By: #### L 100.0100 ####[facility] [address] [place], [address] Platelet mean volume (Bld) [Entitic vol] 8.3 fL Normal 6.2-12.[address] [facility] Comment on above: Performed By: #### L 100.0100 ####[facility] [address] [place], [address] Platelets (Bld) [#/Vol] 378 10*3/uL Normal 150-[address] [facility] Comment on above: Performed By: #### L 100.0100 ####[facility] [address] [place], [address] RBC (Bld) [#/Vol] 3.25 10*6/uL Low 4.2-5.4 [facility] Comment on above: Performed By: #### L 100.0100 ####[facility] [address] [place], [address] RDW SD 43.4 fl Normal 35.1-43.[address] [facility] Comment on above: Performed By: #### L 100.0100 ####[facility] [address] [place], [address] WBC (Bld) [#/Vol] 20.4 10*3/uL High 4.4-11.0 [facility] Comment on above: Performed By: #### L 100.0100 ####[facility] [address] [place], [address] Absolute Lymph 0.76 X10 3/uL Low 0.83-4.[address] [facility] Comment on above: Performed By: #### L 503.6005, L300.3900, L500.2500, L300.4310, L100.0100 ####[facility] [address] [place], [address] Absolute Neut 16.6 X10 3/uL High 2.0-7.[address] [facility] Comment on above: Performed By: #### L 503.6005, L300.3900, L500.2500, L300.4310, L100.0100 ####[facility] [address] [place], [address] Basophils/100 WBC (Bld) 0.2 % Normal 0-1 [facility] Comment on above: Performed By: #### L 503.6005, L300.3900, L500.2500, L300.4310, L100.0100 ####[facility] [address] [place], [address] Eosinophils/100 WBC (Bld) 0.4 % Normal 0-[address] [facility] Comment on above: Performed By: #### L 503.6005, L300.3900, L500.2500, L300.4310, L100.0100 ####[facility] [address] [place], [address] Erythrocyte distribution width (RBC) [Ratio] 13.3 % Normal 11.6-14.[address] [facility] Comment on above: Performed By: #### L 503.6005, L300.3900, L500.2500, L300.4310, L100.0100 ####[facility] [address] [place], [address] Hematocrit (Bld) [Volume fraction] 29.4 % Low 37-[address] [facility] Comment on above: Performed By: #### L 503.6005, L300.3900, L500.2500, L300.4310, L100.0100 ####[facility] [address] [place], [address] Hemoglobin (Bld) [Mass/Vol] 9.9 g/dL Low 12.0-15.[address] [facility] Comment on above: Performed By: #### L 503.6005, L300.3900, L500.2500, L300.4310, L100.0100 ####[facility] [address] [place], [address] IG% 0.600 Normal 0.0-0.[address] [facility] Comment on above: Result Comment: IG% - Immature Granulocytes (promyelocytes, myelocytes andmetamyelocytes) > 1% indicates that a LEFT SHIFT is Present. Performed By: #### L 503.6005, L300.3900, L500.2500, L300.4310, L100.0100 ####[facility] [address] [place], [address] Lymphocytes/100 WBC (Bld) 4.1 % Low 19-[address] [facility] Comment on above: Performed By: #### L 503.6005, L300.3900, L500.2500, L300.4310, L100.0100 ####[facility] [address] [place], [address] MCH (RBC) [Entitic mass] 29.5 pg Normal 27.0-32.[address] [facility] Comment on above: Performed By: #### L 503.6005, L300.3900, L500.2500, L300.4310, L100.0100 ####[facility] [address] [place], [address] MCHC (RBC) [Mass/Vol] 33.7 g/dL Normal 32-36 [facility] Comment on above: Performed By: #### L 503.6005, L300.3900, L500.2500, L300.4310, L100.0100 ####[facility] [address] [place], [address] MCV (RBC) [Entitic vol] 87.5 fL Normal 81-99 [facility] Comment on above: Performed By: #### L 503.6005, L300.3900, L500.2500, L300.4310, L100.0100 ####[facility] [address] [place], [address] Monocytes/100 WBC (Bld) 5.7 % Normal 0-10 [facility] Comment on above: Performed By: #### L 503.6005, L300.3900, L500.2500, L300.4310, L100.0100 ####[facility] [address] [place], [address] Neutrophils/100 WBC (Bld) 89.0 % High 47-[address] [facility] Comment on above: Performed By: #### L 503.6005, L300.3900, L500.2500, L300.4310, L100.0100 ####[facility] [address] [place], [address] Nucleated RBC (Bld) [#/Vol] 0 10*3/uL Normal 0-[address] [facility] Comment on above: Performed By: #### L 503.6005, L300.3900, L500.2500, L300.4310, L100.0100 ####[facility] [address] [place], [address] Platelet mean volume (Bld) [Entitic vol] 8.4 fL Normal 6.2-12.[address] [facility] Comment on above: Performed By: #### L 503.6005, L300.3900, L500.2500, L300.4310, L100.0100 ####[facility] [address] [place], [address] Platelets (Bld) [#/Vol] 396 10*3/uL Normal 150-[address] [facility] Comment on above: Performed By: #### L 503.6005, L300.3900, L500.2500, L300.4310, L100.0100 ####[facility] [address] [place], [address] RBC (Bld) [#/Vol] 3.36 10*6/uL Low 4.2-5.4 [facility] Comment on above: Performed By: #### L 503.6005, L300.3900, L500.2500, L300.4310, L100.0100 ####[facility] [address] [place], [address] RDW SD 42.8 fl Normal 35.1-43.[address] [facility] Comment on above: Performed By: #### L 503.6005, L300.3900, L500.2500, L300.4310, L100.0100 ####[facility] [address] [place], [address] WBC (Bld) [#/Vol] 18.7 10*3/uL High 4.4-11.0 [facility] Comment on above: Performed By: #### L 503.6005, L300.3900, L500.2500, L300.4310, L100.0100 ####[facility] [address] [place], [address] CTA Chest W/WO Contraston CTA Chest W/WO Contrast Normal [facility] Carbon dioxide, total [Moles /volume] in Central venous bloodOrdered By: Pee Sargent on 05-24-2025 CO2 [Moles/Vol] 18.0 mmol/L Low 21.0-32.[address] [facility] Chloride assayOrdered By: Omer Sargent on 05-24-2025 Chloride [Moles/Vol] 111 mmol/L High 98-108 [facility] Emergency Department Summary on 05-24-2025 Emergency Department Summary Normal [facility] Eosinophil percentageOrdered By: Pee Sargent on 05-24-2025 Eosinophils/100 WBC (Bld) 0.4 % 0-[address] [facility] Erythrocyte distribution wid th ratioOrdered By: Pee Sargent on 05-24-2025 Erythrocyte distribution width (RBC) [Ratio] 13.3 % 11.6-14.[address] [facility] Erythrocyte distribution wid th standard deviationOrdered By: Pee Sargent on 05-24-2025 Erythrocyte distribution width (RBC) [Ratio] 42.8 fl 35.1-43.[address] [facility] Glomerular filtration rate ( GFR) estimation/1.73 sq m using serum, plasma, or whole bOrdered By: Pee Sargent on 05-24-2025 GFR/1.73 sq M.predicted among non-blacks MDRD (S/P/Bld) [Vol rate/Area] 123 mL/min/{1.73_m2} >[address] 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 Hematocrit Auto (Bld) [Volum e fraction]Ordered By: Pee Sargent on 05-24-2025 Hematocrit (Bld) [Volume fraction] 29.4 % Low 37-[address] [facility] Hemoglobin measurementOrdere d By: Pee Sargent on 05-24-2025 Hemoglobin (Bld) [Mass/Vol] 9.9 g/dL Low 12.0-15.[address] [facility] Immature granulocytes/100 WB C Auto (Bld)Ordered By: Pee Sargent on 05-24-2025 Immature granulocytes/100 WBC (Bld) 0.600 % 0.0-0.[address] [facility] Comment on above: IG% - Immature Granu locytes (promyelocytes, myelocytes and metamyelocytes) > 1% indicates that a LEFT SHIFT is Present. International normalized rat io (INR) calculationOrdered By: Pee Sargent on 05-24-2025 INR Coag (Bld) [Relative time] 1.0 {INR} [facility] Ketones Test strip Ql (U)Ord ered By: Pee Sargent on 05-24-2025 Ketones Ql (U) Negative Negative [facility] Lactic Acidon 05-24-2025 Lactate [Moles/Vol] mmol/L Normal 0.0-2.0 [facility] Comment on above: Order Comment: Y Performed By: #### L [id number], L300.3900, L500.2500, L300.4310, L100.0100 ####[facility] [id number] [place], [address] Lactic acid measurementOrder ed By: Pee Sargent on 05-24-2025 Lactate [Moles/Vol] mmol/L 0.0-2.0 [facility] MCV (mean corpuscular volume ) determinationOrdered By: Pee Sargent on 05-24-2025 MCV (RBC) [Entitic vol] 87.5 fL 81-[address] [facility] Mean corpuscular hemoglobin (MCH) determinationOrdered By: Pee Sargent on 05-24-2025 MCH (RBC) [Entitic mass] 29.5 pg 27.0-32.[address] [facility] Mean corpuscular hemoglobin concentration (MCHC) determinationOrdered By: Pee Sargent on 05-24-2025 MCHC (RBC) [Mass/Vol] 33.7 g/dL 32-36 [facility] Mean platelet volume determi nationOrdered By: Pee Sargent on 05-24-2025 Platelet mean volume (Bld) [Entitic vol] 8.4 fL 6.2-12.[address] [facility] Microscopic analysis of urin e for red blood cells (RBC)Ordered By: Pee Sargent on 05-24-2025 Microscopic analysis of urine for red blood cells (RBC) 0-5 SEEN /hpf 0-[address] [facility] Monocyte percentageOrdered B y: Pee Sargent on 05-24-2025 Monocytes/100 WBC (Bld) 5.7 % 0-10 [facility] Mucus LM Ql (Urine sed)Order ed By: Pee Sargent on 05-24-2025 Mucus Ql (Urine sed) 0 SEEN /hpf [facility] Neutrophil percentageOrdered By: Pee Sargent on 05-24-2025 Neutrophils/100 WBC (Bld) 89.0 % High 47-[address] [facility] Nitrite Test strip Ql (U)Ord ered By: Pee Sargent on 05-24-2025 Nitrite Ql (U) Negative Negative [facility] Nucleated red blood cell per centageOrdered By: Pee Sargent on 05-24-2025 Nucleated RBC/100 WBC (Bld) [Ratio] 0 % 0-[address] [facility] Partial Thromboplast Timeon 05-24-2025 aPTT Coag (Bld) [Time] 22.5 s Low 24.1-36.2 [facility] Comment on above: Performed By: #### L 503.6005, L300.3900, L500.2500, L300.4310, L100.0100 ####[facility] [address] [place], [address] Platelet countOrdered By: Omer Sargent on 05-24-2025 Platelets (Bld) [#/Vol] 396 10*3/uL 150-[address] [facility] Potassium measurement (mass/ volume)Ordered By: Pee Sargent on 05-24-2025 Potassium (Unsp spec) [Mass/Vol] 3.5 mmol/L 3.3-5.[address] [facility] Comment on above: Hemolysis present, R esults could be affected. Protein Test strip Ql (U)Ord ered By: Pee Sargent on 05-24-2025 Protein Ql (U) 15 mg/dl High Negative [facility] Prothrombin Time w/INRon INR Coag (PPP) [Relative time] 1.0 {INR} Normal [facility] Comment on above: Performed By: #### L 503.6005, L300.3900, L500.2500, L300.4310, L100.0100 ####[facility] [address] [place], [address] PT Coag (PPP) [Time] 12.8 s Normal 11.7-14.9 [facility] Comment on above: Performed By: #### L 503.6005, L300.3900, L500.2500, L300.4310, L100.0100 ####[facility] [address] [place], [place], [phone] Prothrombin timeOrdered By: Pee Sargent on 05-24-2025 PT Coag (PPP) [Time] 12.8 s 11.7-14.9 [facility] RBC Auto (Bld) [#/Vol]Ordere d By: Pee Sargent on 05-24-2025 RBC (Bld) [#/Vol] 3.36 10*6/uL Low 4.2-5.4 [facility] Serum creatinine measurement (mass/volume)Ordered By: Pee Sargent on 05-24-2025 Creatinine [Mass/Vol] 0.54 mg/dL Low 0.70-1.20 [facility] Serum glucose measurement (m ass/volume)Ordered By: Pee Sargent on 05-24-2025 Glucose [Mass/Vol] 105 mg/dL High 70-99 [facility] Serum or plasma calcium kenisha urement (mass/volume)Ordered By: Pee Sargent on 05-24-2025 Calcium [Mass/Vol] 7.7 mg/dL 7.6-11.0 [facility] Serum or plasma urea nitroge n measurement (mass/volume)Ordered By: Pee Sargent on 05-24-2025 Urea nitrogen [Mass/Vol] 9 mg/dL 4-[address] [facility] Sodium levelOrdered By: Pee Sargent on 05-24-2025 Sodium [Moles/Vol] 142 mmol/L 133-145 [facility] Squamous epithelial cells de tection in urine sediment by light microscopyOrdered By: Pee Sargent on 05-24-2025 Epithelial cells.squamous LM Ql (Urine sed) 0-5 SEEN /hpf 5-[address] [facility] Urinalysis, Completeon 05-24 EPI,SQUAMOUS 0-5 SEEN Normal 5-[address] [facility] Comment on above: Order Comment: CLEAN CATCH Performed By: #### L 400.0001 ####[facility] [address] [place], [address] RBC 0-5 SEEN Normal 0-[address] [facility] Comment on above: Order Comment: CLEAN CATCH Performed By: #### L 400.0001 ####[facility] [address] [place], [address] WBC 0-5 SEEN Normal 0-[address] [facility] Comment on above: Order Comment: CLEAN CATCH Performed By: #### L 400.0001 ####[facility] [address] [place], [address] BACTERIA 0 SEEN Normal None Seen [facility] Comment on above: Order Comment: CLEAN CATCH Performed By: #### L 400.0001 ####[facility] [address] [place], [address] Mucus Ql (Urine sed) 0 SEEN Normal [facility] Comment on above: Order Comment: CLEAN CATCH Performed By: #### L 400.0001 ####[facility] [address] [place], [address] Urine clarityOrdered By: Sanjuana Sargent on 05-24-2025 Clarity (U) Clear Clear [facility] Urine color determinationOrd ered By: Pee Sargent on 05-24-2025 Color (U) Yellow Yellow [facility] Urine glucose detectionOrder ed By: Pee Sargent on 05-24-2025 Glucose Ql (U) Normal mg/dl Normal [facility] Urine leukocyte esterase det ection by dipstickOrdered By: Pee Sargent on 08-25-2025 Leukocyte esterase Test strip Ql (U) 100 /ul High Negative [facility] Urine pHOrdered By: Pee de jesus on 05-24-2025 pH (U) 7.0 [pH] 5.0 - 8.[address] [facility] Urine sediment bacteria coun t by microscopy (number/high power field)Ordered By: Pee Sargent on 05-24-2025 Bacteria LM.HPF (Urine sed) [#/Area] 0 /[HPF] None Seen [facility] Urine specific gravity measu rementOrdered By: Pee Sargent on 05-24-2025 Specific gravity (U) [Rel density] 1.005 1.002-1.[address] [facility] Urine urobilinogen measureme ntOrdered By: Pee Sargent on 05-24-2025 Urobilinogen Ql (U) Normal mg/dl Normal [facility] White blood cell (WBC) count Ordered By: Pee Sargent on 05-24-2025 WBC (Bld) [#/Vol] 18.7 10*3/uL High 4.4-11.0 [facility] White blood cell countOrdere d By: Pee Sargent on 05-24-2025 White blood cell count 0-5 SEEN /hpf 0-[address] [facility] Absolute lymphocyte countOrd ered By: Apple Lao on 05-13-2025 Lymphocytes Auto (Unsp spec) [#/Vol] 2.88 10*3/uL 0.83-4.[address] [facility] Absolute neutrophil countOrd ered By: Apple Lao on 05-13-2025 Neutrophils (Bld) [#/Vol] 12.5 10*3/uL High 2.0-7.[address] [facility] Activated partial thrombopla stin time (aPTT) in platelet poor plasma by coagulation aOrdered By: Apple Lao on 05-13-2025 aPTT Coag (PPP) [Time] 22.8 s Low 24.1-36.2 [facility] Automated lymphocyte count a s percentage of total leukocytesOrdered By: Apple Lao on 05-13-2025 Lymphocytes/100 WBC Auto (Unsp spec) 17.1 % Low 19-[address] [facility] Basophil percentageOrdered B y: Apple Lao on 05-13-2025 Basophils/100 WBC (Bld) 0.4 % 0-1 [facility] CBC W/Diff, Automatedon 04-30 Absolute Lymph 2.88 X10 3/uL Normal 0.83-4.[address] [facility] Comment on above: Performed By: #### L 100.0100 ####[facility] [address] [place], [address] Absolute Neut 12.5 X10 3/uL High 2.0-7.[address] [facility] Comment on above: Performed By: #### L 100.0100 ####[facility] [address] [place], [address] Basophils/100 WBC (Bld) 0.4 % Normal 0-1 [facility] Comment on above: Performed By: #### L 100.0100 ####[facility] [address] [place], [address] Eosinophils/100 WBC (Bld) 0.9 % Normal 0-[address] [facility] Comment on above: Performed By: #### L 100.0100 ####[facility] [address] [place], [address] Erythrocyte distribution width (RBC) [Ratio] 13.6 % Normal 11.6-14.[address] [facility] Comment on above: Performed By: #### L 100.0100 ####[facility] [address] [place], [address] Hematocrit (Bld) [Volume fraction] 33.9 % Low 37-[address] [facility] Comment on above: Performed By: #### L 100.0100 ####[facility] [address] [place], [address] Hemoglobin (Bld) [Mass/Vol] 11.5 g/dL Low 12.0-15.[address] [facility] Comment on above: Performed By: #### L 100.0100 ####[facility] [address] [place], [address] IG% 1.000 High 0.0-0.[address] [facility] Comment on above: Result Comment: IG% - Immature Granulocytes (promyelocytes, myelocytes andmetamyelocytes) > 1% indicates that a LEFT SHIFT is Present. Performed By: #### L 100.0100 ####[facility] [address] [place], [address] Lymphocytes/100 WBC (Bld) 17.1 % Low 19-[address] [facility] Comment on above: Performed By: #### L 100.0100 ####[facility] [address] [place], [address] MCH (RBC) [Entitic mass] 29.6 pg Normal 27.0-32.[address] [facility] Comment on above: Performed By: #### L 100.0100 ####[facility] [address] [place], [address] MCHC (RBC) [Mass/Vol] 33.9 g/dL Normal 32-36 [facility] Comment on above: Performed By: #### L 100.0100 ####[facility] [address] [place], [address] MCV (RBC) [Entitic vol] 87.4 fL Normal 81-99 [facility] Comment on above: Performed By: #### L 100.0100 ####[facility] [address] [place], [address] Monocytes/100 WBC (Bld) 6.6 % Normal 0-10 [facility] Comment on above: Performed By: #### L 100.0100 ####[facility] [address] [place], [address] Neutrophils/100 WBC (Bld) 74.0 % High 47-[address] [facility] Comment on above: Performed By: #### L 100.0100 ####[facility] [address] [place], [address] Nucleated RBC (Bld) [#/Vol] 0 10*3/uL Normal 0-[address] [facility] Comment on above: Performed By: #### L 100.0100 ####[facility] [address] [place], [address] Platelet mean volume (Bld) [Entitic vol] 9.7 fL Normal 6.2-12.[address] [facility] Comment on above: Performed By: #### L 100.0100 ####[facility] [address] [place], [address] Platelets (Bld) [#/Vol] 299 10*3/uL Normal 150-[address] [facility] Comment on above: Performed By: #### L 100.0100 ####[facility] [address] [place], [address] RBC (Bld) [#/Vol] 3.88 10*6/uL Low 4.2-5.4 [facility] Comment on above: Performed By: #### L 100.0100 ####[facility] [address] [place], [address] RDW SD 43.1 fl Normal 35.1-43.[address] [facility] Comment on above: Performed By: #### L 100.0100 ####[facility] [address] [place], [address] WBC (Bld) [#/Vol] 16.9 10*3/uL High 4.4-11.0 [facility] Comment on above: Performed By: #### L 100.0100 ####[facility] [address] [place], [address] CBC-Complete Blood Cnt No Di ffon 08-14-2025 Erythrocyte distribution width (RBC) [Ratio] 13.6 % Normal 11.6-14.[address] [facility] Comment on above: Order Comment: Comme nts: Day #1Reason for Laboratory Test Performed By: #### L 100.0500 ####[facility] [address] [place], [address] Hematocrit (Bld) [Volume fraction] 33.8 % Low 37-[address] [facility] Comment on above: Order Comment: Comme nts: Day #1Reason for Laboratory Test Performed By: #### L 100.0500 ####[facility] [address] [place], [address] Hemoglobin (Bld) [Mass/Vol] 11.4 g/dL Low 12.0-15.[address] [facility] Comment on above: Order Comment: Comme nts: Day #1Reason for Laboratory Test Performed By: #### L 100.0500 ####[facility] [address] [place], [address] MCH (RBC) [Entitic mass] 29.4 pg Normal 27.0-32.[address] [facility] Comment on above: Order Comment: Comme nts: Day #1Reason for Laboratory Test Performed By: #### L 100.0500 ####[facility] [address] [place], [address] MCHC (RBC) [Mass/Vol] 33.7 g/dL Normal 32-36 [facility] Comment on above: Order Comment: Comme nts: Day #1Reason for Laboratory Test Performed By: #### L 100.0500 ####[facility] [address] [place], [address] MCV (RBC) [Entitic vol] 87.1 fL Normal 81-99 [facility] Comment on above: Order Comment: Comme nts: Day #1Reason for Laboratory Test Performed By: #### L 100.0500 ####[facility] [address] [place], [address] Platelet mean volume (Bld) [Entitic vol] 9.6 fL Normal 6.2-12.[address] [facility] Comment on above: Order Comment: Comme nts: Day #1Reason for Laboratory Test Performed By: #### L 100.0500 ####[facility] [address] [place], [address] Platelets (Bld) [#/Vol] 228 10*3/uL Normal 150-[address] [facility] Comment on above: Order Comment: Comme nts: Day #1Reason for Laboratory Test Performed By: #### L 100.0500 ####[facility] [address] [place], [address] RBC (Bld) [#/Vol] 3.88 10*6/uL Low 4.2-5.4 [facility] Comment on above: Order Comment: Comme nts: Day #1Reason for Laboratory Test Performed By: #### L 100.0500 ####[facility] [address] [place], [address] RDW SD 43.1 fl Normal 35.1-43.[address] [facility] Comment on above: Order Comment: Comme nts: Day #1Reason for Laboratory Test Performed By: #### L 100.0500 ####[facility] [address] [place], [address] WBC (Bld) [#/Vol] 15.0 10*3/uL High 4.4-11.0 [facility] Comment on above: Order Comment: Comme nts: Day #1Reason for Laboratory Test Performed By: #### L 100.0500 ####[facility] [address] [place], [address] Eosinophil percentageOrdered By: Apple Lao on 05-13-2025 Eosinophils/100 WBC (Bld) 0.9 % 0-[address] [facility] Erythrocyte distribution wid th ratioOrdered By: Apple Lao on 05-13-2025 Erythrocyte distribution width (RBC) [Ratio] 13.6 % 11.6-14.[address] [facility] Erythrocyte distribution wid th standard deviationOrdered By: Apple Lao on 05-13-2025 Erythrocyte distribution width (RBC) [Ratio] 43.1 fl 35.1-43.[address] [facility] Fibrinogenon 05-13-2025 FIBRINOGEN 422 mg/dl Normal 203-[address] [facility] Comment on above: Performed By: #### L 300.4700, L300.3900, L300.4310 ####[facility] [address] [place], [place], [address] Hematocrit Auto (Bld) [Volum e fraction]Ordered By: Apple Lao on 05-13-2025 Hematocrit (Bld) [Volume fraction] 33.9 % Low 37-[address] [facility] Hemoglobin measurementOrdere d By: Apple Lao on 05-13-2025 Hemoglobin (Bld) [Mass/Vol] 11.5 g/dL Low 12.0-15.[address] [facility] Immature granulocytes/100 WB C Auto (Bld)Ordered By: Apple Lao on 05-13-2025 Immature granulocytes/100 WBC (Bld) 1.000 % High 0.0-0.[address] [facility] Comment on above: IG% - Immature Granu locytes (promyelocytes, myelocytes and metamyelocytes) > 1% indicates that a LEFT SHIFT is Present. International normalized rat io (INR) calculationOrdered By: Apple Lao on 05-13-2025 INR Coag (Bld) [Relative time] 1.0 {INR} [facility] Thomas 05-13-2025 ROXANA Positive Abnormal [facility] Comment on above: Result Comment: Ashlee Huertas Study Reference: Negative POSITIVE AB* Feto-maternal hemorrhage ( RBCs): 10 mL. TESTING PERFORMED AT [facility]. ORIGINAL REPORT ON FILE IN LAB CONTAINS ADDITIONAL TEST SITE INFORMATION. Performed By: #### L 803.2300 ####[facility] [address] [place], [address] MCV (mean corpuscular volume ) determinationOrdered By: Apple Lao on 05-13-2025 MCV (RBC) [Entitic vol] 87.4 fL 81-99 [facility] Mean corpuscular hemoglobin (MCH) determinationOrdered By: Apple Lao on 05-13-2025 MCH (RBC) [Entitic mass] 29.6 pg 27.0-32.[address] [facility] Mean corpuscular hemoglobin concentration (MCHC) determinationOrdered By: Apple Lao on 05-13-2025 MCHC (RBC) [Mass/Vol] 33.9 g/dL 32-36 [facility] Mean platelet volume determi nationOrdered By: Apple Lao on 05-13-2025 Platelet mean volume (Bld) [Entitic vol] 9.7 fL 6.2-12.[address] [facility] Monocyte percentageOrdered B y: Apple Lao on 05-13-2025 Monocytes/100 WBC (Bld) 6.6 % 0-10 [facility] Neutrophil percentageOrdered By: Apple Lao on 05-13-2025 Neutrophils/100 WBC (Bld) 74.0 % High 47-[address] [facility] Nucleated red blood cell per centageOrdered By: Apple Lao on 05-13-2025 Nucleated RBC/100 WBC (Bld) [Ratio] 0 % 0-[address] [facility] Partial Thromboplast Timeon 05-13-2025 aPTT Coag (Bld) [Time] 22.8 s Low 24.1-36.2 [facility] Comment on above: Performed By: #### L 300.4700, L300.3900, L300.4310 ####[facility] [address] [place], [address] Platelet countOrdered By: Elena Lao on 05-13-2025 Platelets (Bld) [#/Vol] 299 10*3/uL 150-[address] [facility] Prothrombin Time w/INRon INR Coag (PPP) [Relative time] 1.0 {INR} Normal [facility] Comment on above: Performed By: #### L 300.4700, L300.3900, L300.4310 ####[facility] [address] [place], [address] PT Coag (PPP) [Time] 12.8 s Normal 11.7-14.9 [facility] Comment on above: Performed By: #### L 300.4700, L300.3900, L300.4310 ####[facility] [address] [place], [address] Prothrombin timeOrdered By: Apple Lao on 05-13-2025 PT Coag (PPP) [Time] 12.8 s 11.7-14.9 [facility] RBC Auto (Bld) [#/Vol]Ordere d By: Apple Lao on 05-13-2025 RBC (Bld) [#/Vol] 3.88 10*6/uL Low 4.2-5.4 [facility] White blood cell (WBC) count Ordered By: Apple Lao on 05-13-2025 WBC (Bld) [#/Vol] 16.9 10*3/uL High 4.4-11.0 [facility] Amphetamine detection with 1 000 ng/mL as cutoffOrdered By: Edel Diehl on 05-12-2025 Amphetamines Screen method >1000 ng/mL Ql (U) Negative < 200 ng/mL [facility] BRho(D) IGon 05-12-2025 Rho(D) IG Normal [facility] Comment on above: Result Comment: RH10 [id number] Rho(D) IG PRSMD TRFSD 05/12/25 [id number] Rho(D) IG PRSMD TRFSD 05/13/25 1138 Performed By: #### B RHNM, BRho(D) IG ####[facility] [address] [place], [address] CBC W/Diff, Automatedon 04-30 Absolute Lymph 2.15 X10 3/uL Normal 0.83-4.[address] [facility] Comment on above: Performed By: #### L 100.0100, BTS ####[facility] [address] [place], [address] Absolute Neut 9.1 X10 3/uL High 2.0-7.[address] [facility] Comment on above: Performed By: #### L 100.0100, BTS ####[facility] [address] [place], [address] Basophils/100 WBC (Bld) 0.4 % Normal 0-1 [facility] Comment on above: Performed By: #### L 100.0100, BTS ####[facility] [address] [place], [address] Eosinophils/100 WBC (Bld) 1.1 % Normal 0-[address] [facility] Comment on above: Performed By: #### L 100.0100, BTS ####[facility] [address] [place], [address] Erythrocyte distribution width (RBC) [Ratio] 13.4 % Normal 11.6-14.[address] [facility] Comment on above: Performed By: #### L 100.0100, BTS ####[facility] [address] [place], [address] Hematocrit (Bld) [Volume fraction] 36.4 % Low 37-[address] [facility] Comment on above: Performed By: #### L 100.0100, BTS ####[facility] [address] [place], [address] Hemoglobin (Bld) [Mass/Vol] 12.5 g/dL Normal 12.0-15.[address] [facility] Comment on above: Performed By: #### L 100.0100, BTS ####[facility] [address] [place], [address] IG% 1.300 High 0.0-0.[address] [facility] Comment on above: Result Comment: IG% - Immature Granulocytes (promyelocytes, myelocytes andmetamyelocytes) > 1% indicates that a LEFT SHIFT is Present. Performed By: #### L 100.0100, BTS ####[facility] [address] [place], [address] Lymphocytes/100 WBC (Bld) 17.3 % Low 19-[address] [facility] Comment on above: Performed By: #### L 100.0100, BTS ####[facility] [address] [place], [address] MCH (RBC) [Entitic mass] 29.8 pg Normal 27.0-32.[address] [facility] Comment on above: Performed By: #### L 100.0100, BTS ####[facility] [address] [place], [address] MCHC (RBC) [Mass/Vol] 34.3 g/dL Normal 32-36 [facility] Comment on above: Performed By: #### L 100.0100, BTS ####[facility] [address] [place], [address] MCV (RBC) [Entitic vol] 86.7 fL Normal 81-99 [facility] Comment on above: Performed By: #### L 100.0100, BTS ####[facility] [address] [place], [address] Monocytes/100 WBC (Bld) 6.7 % Normal 0-10 [facility] Comment on above: Performed By: #### L 100.0100, BTS ####[facility] [address] [place], [address] Neutrophils/100 WBC (Bld) 73.2 % High 47-[address] [facility] Comment on above: Performed By: #### L 100.0100, BTS ####[facility] [address] [place], [address] Nucleated RBC (Bld) [#/Vol] 0 10*3/uL Normal 0-[address] [facility] Comment on above: Performed By: #### L 100.0100, BTS ####[facility] [address] [place], [address] Platelet mean volume (Bld) [Entitic vol] 9.8 fL Normal 6.2-12.[address] [facility] Comment on above: Performed By: #### L 100.0100, BTS ####[facility] [address] [place], [address] Platelets (Bld) [#/Vol] 252 10*3/uL Normal 150-[address] [facility] Comment on above: Performed By: #### L 100.0100, BTS ####[facility] [address] [place], [address] RBC (Bld) [#/Vol] 4.20 10*6/uL Normal 4.2-5.4 [facility] Comment on above: Performed By: #### L 100.0100, BTS ####[facility] [address] [place], [address] RDW SD 42.0 fl Normal 35.1-43.[address] [facility] Comment on above: Performed By: #### L 100.0100, BTS ####[facility] [address] [place], [place], [address] WBC (Bld) [#/Vol] 12.4 10*3/uL High 4.4-11.0 [facility] Comment on above: Performed By: #### L 100.0100, BTS ####[facility] [address] 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 No Panel InformationOrdered By: Edel Diehl on 05-12-2025 Urine Buprenorphine Qualitative Negative < 200 ng/mL [facility] Urine Oxycodone Screen Negative < 100 ng/mL [facility] Negative < 200 ng/mL [facility] Operative Reporton Operative Report Normal [facility] Quantitative urine opiates m easurementOrdered By: Edel Diehl on 05-12-2025 Opiates Ql (U) Negative < 300 ng/mL [facility] Rh Negative Mom Workupon SCREEN Positive Abnormal NEGATIVE [facility] Comment on above: Order Comment: Comme nts: Age > 13 Weeksbaby [id number] Result Comment: ASHLEE LI TEST TO FOLLOW. Performed By: #### B RHNM BRho(D) IG ####[facility] [address] [place], [address] ABO and Rh group Nom (Bld) Blood group B Rh(D) negative Normal [facility] Comment on above: Order Comment: Comme nts: Age > 13 Weeksbaby [id number] Performed By: #### B RHNM, BRho(D) IG ####[facility] [address] [place], [address] ABO and Rh group Nom (Bld) Blood group B Rh(D) positive Normal [facility] Comment on above: Order Comment: Comme nts: Age > 13 Weeksbaby [id number] Performed By: #### B Carolina BARRON(D) IG ####[facility] [address] [place], [address] DIRECT ANTIGLOB Negative Normal NEGATIVE [facility] Comment on above: Order Comment: Comme nts: Age > 13 Weeksbaby [id number] Performed By: #### B Carolina BARRON(D) IG ####[facility] [address] [place], [address] MOM'S ABS Negative Normal [facility] Comment on above: Order Comment: Comme nts: Age > 13 Weeksbaby [id number] Performed By: #### B Carolina BARRON(D) IG ####[facility] [address] [place], [address] Screening urine fentanyl kaden surementOrdered By: Edel Diehl on 05-12-2025 fentaNYL Screen Ql (U) Negative [facility] Syphilis Antibodieson 2024 Syphilis Abs Non-Reactive Normal Nonreactive [facility] Comment on above: Performed By: #### L 509.8002 ####[facility] [address] [place], [address] Type AND Screenon 05-12-2025 Ab SCREEN GEL Negative Normal [facility] Comment on above: Order Comment: SC-SE CTION Performed By: #### L 100.0100, BTS ####[facility] [address] [place], [address] Urine Drug Screen (VISTA)on 05-12-2025 AMPHETAMINES Negative Normal <1000 ng/mL [facility] Comment on above: Performed By: #### L 505.5000 ####[facility] [address] [place], [address] BARBITIURATES Negative Normal < 200 ng/mL [facility] Comment on above: Performed By: #### L 505.5000 ####[facility] [address] [place], [address] BENZODIAZIPINE Negative Normal < 200 ng/mL [facility] Comment on above: Performed By: #### L 505.5000 ####[facility] [address] [place], [address] BUP Ur Drug Scr Negative Normal < 200 ng/mL [facility] Comment on above: Performed By: #### L 505.5000 ####[facility] [address] [place], [address] COCAINE Negative Normal < 300 ng/mL [facility] Comment on above: Performed By: #### L 505.5000 ####[facility] [address] [place], [address] Fentanyl Negative Normal [facility] Comment on above: Performed By: #### L 505.5000 ####[facility] [address] [place], [address] METHADONE Negative Normal < 300 ng/mL [facility] Comment on above: Performed By: #### L 505.5000 ####[facility] [address] [place], [address] OPIATES Negative Normal < 300 ng/mL [facility] Comment on above: Performed By: #### L 505.5000 ####[facility] [address] [place], [address] OXYCODONE Negative Normal < 100 ng/mL [facility] Comment on above: Performed By: #### L 505.5000 ####[facility] [address] [place], [address] PCP Negative Normal < 25 ng/mL [facility] Comment on above: Performed By: #### L 505.5000 ####[facility] [address] [place], [place], [address] THC Negative Normal < 50 ng/mL [facility] Comment on above: Performed By: #### L 510.9294 ####[facility] [address] [place], [place], [id number] Urine benzodiazepine levelOr dered By: Edel Diehl on 05-12-2025 Benzodiazepines Ql (U) Negative < 200 ng/mL [facility] Urine cocaine levelOrdered B y: Edel Diehl on 05-12-2025 Cocaine Ql (U) Negative < 300 ng/mL [facility] Urine zkclt-2-lyliptfesplcmv abinol (THC) measurementOrdered By: Edel Diehl on 05-12-2025 Cannabinoids Screen Ql (U) Negative < 50 ng/mL [facility] Urine phencyclidine (PCP) de tectionOrdered By: Edel Diehl on 05-12-2025 Phencyclidine Ql (U) Negative < 25 ng/mL [facility] Laboratory - Chemistry and C hemistry - challengeOrdered By: Edel Diehl on 05-06-2025 Glucose Ql (U) Negative [facility] Laboratory - UrinalysisOrder ed By: Edel Diehl on 05-06-2025 Protein Ql (U) Negative [facility] No Panel InformationOrdered By: Edel Diehl on 05-06-[address] [facility] Implementation Lead Office Visit Reporton 05-06-2025 Implementation Lead Office Visit Report Normal [facility] Rule out Beta Strep (Grp. B) on 05-03-[address] [facility] Comment on above: Performed By: #### M 100.2126 ####[facility] [address] [place], [place], [address] Laboratory - Chemistry and C hemistry - challengeOrdered By: Edel Diehl on 04-28-2025 Glucose Ql (U) Negative [facility] Laboratory - UrinalysisOrder ed By: Edel Diehl on 04-28-2025 Protein Ql (U) Negative [facility] No Panel InformationOrdered By: Edel Diehl on 04-28-[address] [facility] Implementation Lead Office Visit Reporton 04-28-2025 Implementation Lead Office Visit Report Normal [facility] Screening beta-hemolytic Str eptococcus cultureOrdered By: Edel Diehl on 04-28-2025 Beta-hemolytic Streptococcus culture Streptococcus agalactiae (B) Abnormal [facility] OB Biophysical Prof W/O NSTo n 04-22-2025 OB Biophysical Prof W/O NST Normal [facility] Laboratory - Chemistry and C hemistry - challengeOrdered By: Apple Lao on 04-20-2025 Glucose Ql (U) Negative [facility] Laboratory - UrinalysisOrder ed By: Apple Lao on 04-20-2025 Protein Ql (U) Negative [facility] No Panel InformationOrdered By: Apple Lao on 04-20-[address] [facility] Implementation Lead Office Visit Reporton 04-20-2025 Implementation Lead Office Visit Report Normal [facility] OB Biophysical Prof W/O NSTo n 04-19-2025 OB Biophysical Prof W/O NST Normal [facility] OB Triage Progress Noteon OB Triage Progress Note Normal [facility] OB Biophysical Prof W/O NSTo n 04-15-2025 OB Biophysical Prof W/O NST Normal [facility] L3410.9992on 04-08-2025 [facility]. COMMENT Normal . [facility] Comment on above: Order Comment: [id number] 640serum FZ bile acids Result Comment: Perf ormed at: - [facility] [address] [id number] Director: Huan Kuhn PhD, Phone: [phone] Performed By: #### L 500.4050, L3410.9992 ####[facility] [address] [place], [address] Anion gap in Serum or Plasma Ordered By: Edel Diehl on 04-07-2025 Anion gap [Moles/Vol] 12 mmol/L 5-15 [facility] BUN/creatinine ratioOrdered By: Edel Diehl on 04-07-2025 Urea nitrogen/Creatinine [Mass ratio] 7.7 mg/mg Low 10-[address] [facility] Bilirubin, totalOrdered By: Edelcliff Diehl on 04-07-2025 Bilirubin [Mass/Vol] 0.29 mg/dL 0.00-1.30 [facility] Carbon dioxide, total [Moles /volume] in Central venous bloodOrdered By: Edel Diehl on 04-07-2025 CO2 [Moles/Vol] 19.0 mmol/L Low 21.0-32.[address] [facility] Chloride assayOrdered By: Mickey douglasnegro Shanita on 04-07-2025 Chloride [Moles/Vol] 107 mmol/L 98-108 [facility] Comprehensive Metabolic Prof ilon 04-07-2025 Albumin [Mass/Vol] 3.6 g/dL Normal 3.5-5.0 [facility] Comment on above: Performed By: #### L 500.4050, L3410.9992 ####[facility] [address] [place], [address] Albumin/Globulin [Mass ratio] 1.1 {ratio} Normal 0.9-2.[address] [facility] Comment on above: Performed By: #### L 500.4050, L3410.9992 ####[facility] [address] [place], [address] ALK PHOS 146 U/L High 35-[address] [facility] Comment on above: Performed By: #### L 500.4050, L3410.9992 ####[facility] [address] [place], [address] ALT [Catalytic activity/Vol] 21 U/L Normal <=[address] [facility] Comment on above: Performed By: #### L 500.4050, L3410.9992 ####[facility] [address] [place], [address] AST [Catalytic activity/Vol] 19 U/L Normal <=[address] [facility] Comment on above: Performed By: #### L 500.4050, L3410.9992 ####[facility] [address] [place], [address] Bilirubin [Mass/Vol] 0.29 mg/dL Normal 0.00-1.30 [facility] Comment on above: Performed By: #### L 500.4050, L3410.9992 ####[facility] [address] [place], [address] BUN/CRE 7.7 RATIO Low 10-[address] [facility] Comment on above: Performed By: #### L 500.4050, L3410.9992 ####[facility] [address] [place], [address] Calcium [Mass/Vol] 9.2 mg/dL Normal 7.6-11.0 [facility] Comment on above: Performed By: #### L 500.4050, L3410.9992 ####[facility] [address] [place], [address] Chloride [Moles/Vol] 107 mmol/L Normal 98-108 [facility] Comment on above: Performed By: #### L 500.4050, L3410.9992 ####[facility] [address] [place], [address] CO2 [Moles/Vol] 19.0 mmol/L Low 21.0-32.[address] [facility] Comment on above: Performed By: #### L 500.4050, L3410.9992 ####[facility] [address] [place], [address] Creatinine [Mass/Vol] 0.58 mg/dL Low 0.70-1.20 [facility] Comment on above: Performed By: #### L 500.4050, L3410.9992 ####[facility] [address] [place], [address] GAP 12 Normal 5-[address] [facility] Comment on above: Performed By: #### L 500.4050, L3410.9992 ####[facility] [address] [place], [address] GFR/1.73 sq M.predicted among non-blacks MDRD (S/P/Bld) [Vol rate/Area] 121 mL/min/{1.73_m2} Normal >[address] [facility] Comment on above: Result Comment: mL/m in/1.73m2 CKD-EPI Creatinine Equation (2020) Performed By: #### L 500.4050, L3410.9992 ####[facility] [address] [place], [address] Globulin (S) [Mass/Vol] 3.4 g/dL Normal 2.2-4.2 [facility] Comment on above: Performed By: #### L 500.4050, L3410.9992 ####[facility] [address] [place], [address] Glucose [Mass/Vol] 85 mg/dL Normal 70-99 [facility] Comment on above: Performed By: #### L 500.4050, L3410.9992 ####[facility] [address] [place], [address] Potassium [Moles/Vol] 4.0 mmol/L Normal 3.3-5.1 [facility] Comment on above: Performed By: #### L 500.4050, L3410.9992 ####[facility] [address] [place], [address] Sodium [Moles/Vol] 137 mmol/L Normal 133-145 [facility] Comment on above: Performed By: #### L 500.4050, L3410.9992 ####[facility] [address] [place], [address] T PROT 6.9 g/dL Normal 5.9-8.[address] [facility] Comment on above: Performed By: #### L 500.4050, L3410.9992 ####[facility] [address] [place], [place], [address] Urea nitrogen [Mass/Vol] 4 mg/dL Normal 4-[address] [facility] Comment on above: Performed By: #### L 500.4050, L3410.9992 ####[facility] [address] [place], [place], [id number] Glomerular filtration rate ( GFR) estimation/1.73 sq m using serum, plasma, or whole bOrdered By: Edel Diehl on 04-07-2025 GFR/1.73 sq M.predicted among non-blacks MDRD (S/P/Bld) [Vol rate/Area] 121 mL/min/{1.73_m2} >[address] [facility] Comment on above: mL/min/1.73m2 CKD-EP I Creatinine Equation (2020) Laboratory - Chemistry and C hemistry - challengeOrdered By: Edel Diehl on 04-07-2025 AST [Catalytic activity/Vol] 19 U/L <[address] [facility] No Panel InformationOrdered By: Edel Diehl on 04-07-2025 19 U/L <[address] [facility] Implementation Lead Office Visit Reporton 04-07-2025 Implementation Lead Office Visit Report Normal [facility] Potassium measurement (mass/ volume)Ordered By: Edel Diehl on 04-07-2025 Potassium (Unsp spec) [Mass/Vol] 4.0 mmol/L 3.3-5.[address] [facility] Serum creatinine measurement (mass/volume)Ordered By: Edel Diehl on 04-07-2025 Creatinine [Mass/Vol] 0.58 mg/dL Low 0.70-1.20 [facility] Serum globulin measurementOr dered By: Edel Diehl on 04-07-2025 Globulin (S) [Mass/Vol] 3.4 g/dL 2.2-4.2 [facility] Serum glucose measurement (m ass/volume)Ordered By: Edel Diehl on 04-07-2025 Glucose [Mass/Vol] 85 mg/dL 70-99 [facility] Serum or plasma alanine jung otransferase (ALT) measurementOrdered By: Edel Diehl on 04-07-2025 ALT [Catalytic activity/Vol] 21 U/L <[address] [facility] Serum or plasma albumin kenisha urement (mass/volume)Ordered By: Edel Diehl on 04-07-2025 Albumin [Mass/Vol] 3.6 g/dL 3.5-5.0 [facility] Serum or plasma albumin/glob ulin mass ratioOrdered By: Edel Diehl on 04-07-2025 Albumin/Globulin [Mass ratio] 1.1 {ratio} 0.9-2.[address] [facility] Serum or plasma alkaline ct sphatase measurementOrdered By: Edel Diehl on 04-07-2025 ALP [Catalytic activity/Vol] 146 U/L High 35-[address] [facility] Serum or plasma calcium kenisha urement (mass/volume)Ordered By: Edel Diehl on 04-07-2025 Calcium [Mass/Vol] 9.2 mg/dL 7.6-11.0 [facility] Serum or plasma urea nitroge n measurement (mass/volume)Ordered By: Edel Diehl on 04-07-2025 Urea nitrogen [Mass/Vol] 4 mg/dL 4-[address] [facility] Sodium levelOrdered By: Kellen Diehl on 04-07-2025 Sodium [Moles/Vol] 137 mmol/L 133-145 [facility] Total proteinOrdered By: Rachel Diehl on 04-07-2025 Protein [Mass/Vol] 6.9 g/dL 5.9-8.4 [facility] Laboratory - Chemistry and C hemistry - challengeOrdered By: Edel Diehl on 03-26-2025 Glucose Ql (U) Negative [facility] Laboratory - UrinalysisOrder ed By: Edel Diehl on 03-26-2025 Protein Ql (U) Negative [facility] No Panel InformationOrdered By: Edel Diehl on 03-26-[address] [facility] Implementation Lead Office Visit Reporton 03-26-2025 Implementation Lead Office Visit Report Normal [facility] Genital Culture Comprehensiv tracy 03-12-2025 VAC Reason for Exam: contractions No Gardnerella, Neisseria or beta-hemolytic Streptococcus isolated. Presumptive C albicans Amount Growth 2+ Normal [facility] Comment on above: Performed By: #### M 100.3200, M1.1999 ####[facility] [address] [place], [place], [id number] Gram Stainon 03-10-2025 GS Reason for Exam: contractions Gram Stain 3+ Gram positive rods 1+ White Blood Cells No Gram negative diplococci Score = 1 Interpretation: 0-3 Normal, 4-6 Intermediate, 7-10 Positive [address] [facility] Comment on above: Performed By: #### M 100.3200, M1 ####[facility] [address] [place], [place], [address] Gram stainOrdered By: Ronda Diehl on 03-10-2025 Microscopic observation Gram stain Nom (Unsp spec) [facility] Laboratory - Chemistry and C hemistry - challengeOrdered By: Edel Diehl on 03-10-2025 Glucose Ql (U) Negative [facility] Laboratory - UrinalysisOrder ed By: Edel Deihl on 03-10-2025 Protein Ql (U) Negative [facility] No Panel InformationOrdered By: Edel Diehl on 03-10-[address] [facility] Implementation Lead Office Visit Reporton 03-10-2025 Implementation Lead Office Visit Report Normal [facility] Gestational GTT 3HR 100gon 0 03-05-2025 GEST GTT 100gm Normal [facility] Comment on above: Order Comment: Y Result Comment: FAST ING 85 Col: 03/05/25 0700GLUCOSE TOLERANCE TEST FOR Reference Interval GESTATIONAL DIABETES Fasting <105 mg/dL 1 hour <190 mg/dl 2 hour <165 mg/dl 3 hour <145 mg/dl 1 HR GLU 150 Col: 03/05/25 0829 2 HR GLU 148 Col: 03/05/25 0926 3 HR GLU 60 Col: 03/05/25 1029 Performed By: #### L 500.4710 ####[facility] [address] [place], [place], [id number] Quantitative serum or plasma 3 hour gestational glucose tolerance panelOrdered By: Kiley Jain on 03-05-2025 Glucose tolerance 3 hours gestational panel See comment [facility] Comment on above: FASTING 85 Col: [...] Auto (Unsp spec) [#/Vol] 2.26 10*3/uL 0.83-4.[address] [facility] Absolute neutrophil countOrd ered By: Edel Diehl on 02-26-2025 Neutrophils (Bld) [#/Vol] 8.8 10*3/uL High 2.0-7.[address] [facility] Automated lymphocyte count a s percentage of total leukocytesOrdered By: Edel Diehl on 02-26-2025 Lymphocytes/100 WBC Auto (Unsp spec) 19.1 % 19-[address] [facility] Basophil percentageOrdered B y: Edel Diehl on 02-26-2025 Basophils/100 WBC (Bld) 0.3 % 0-1 [facility] CBC W/Diff, Automatedon 01-30 Absolute Lymph 2.26 X10 3/uL Normal 0.83-4.[address] [facility] Comment on above: Performed By: #### B TS, L501.0250, L100.0100, L3890.6006, L509.8002 ####[facility] [address] [place], [place], [address] Absolute Neut 8.8 X10 3/uL High 2.0-7.[address] [facility] Comment on above: Performed By: #### B TS, L501.0250, L100.0100, L3890.6006, L509.8002 ####[facility] [address] [place], [address] Basophils/100 WBC (Bld) 0.3 % Normal 0-1 [facility] Comment on above: Performed By: #### B TS, L501.0250, L100.0100, L3890.6006, L509.8002 ####[facility] [address] [place], [address] Eosinophils/100 WBC (Bld) 1.0 % Normal 0-[address] [facility] Comment on above: Performed By: #### B TS, L501.0250, L100.0100, L3890.6006, L509.8002 ####[facility] [address] [place], [address] Erythrocyte distribution width (RBC) [Ratio] 13.5 % Normal 11.6-14.[address] [facility] Comment on above: Performed By: #### B TS, L501.0250, L100.0100, L3890.6006, L509.8002 ####[facility] [address] [place], [address] Hematocrit (Bld) [Volume fraction] 37.5 % Normal 37-[address] [facility] Comment on above: Performed By: #### B TS, L501.0250, L100.0100, L3890.6006, L509.8002 ####[facility] [address] [place], [address] Hemoglobin (Bld) [Mass/Vol] 12.7 g/dL Normal 12.0-15.[address] [facility] Comment on above: Performed By: #### B TS, L501.0250, L100.0100, L3890.6006, L509.8002 ####[facility] [address] [place], [address] IG% 0.800 Normal 0.0-0.[address] [facility] Comment on above: Result Comment: IG% - Immature Granulocytes (promyelocytes, myelocytes andmetamyelocytes) > 1% indicates that a LEFT SHIFT is Present. Performed By: #### B TS, L501.0250, L100.0100, L3890.6006, L509.8002 ####[facility] [address] [place], [address] Lymphocytes/100 WBC (Bld) 19.1 % Normal 19-[address] [facility] Comment on above: Performed By: #### B TS, L501.0250, L100.0100, L3890.6006, L509.8002 ####[facility] [address] [place], [address] MCH (RBC) [Entitic mass] 29.7 pg Normal 27.0-32.[address] [facility] Comment on above: Performed By: #### B TS, L501.0250, L100.0100, L3890.6006, L509.8002 ####[facility] [address] [place], [address] MCHC (RBC) [Mass/Vol] 33.9 g/dL Normal 32-36 [facility] Comment on above: Performed By: #### B TS, L501.0250, L100.0100, L3890.6006, L509.8002 ####[facility] [address] [place], [address] MCV (RBC) [Entitic vol] 87.6 fL Normal 81-99 [facility] Comment on above: Performed By: #### B TS, L501.0250, L100.0100, L3890.6006, L509.8002 ####[facility] [address] [place], [address] Monocytes/100 WBC (Bld) 4.0 % Normal 0-10 [facility] Comment on above: Performed By: #### B TS, L501.0250, L100.0100, L3890.6006, L509.8002 ####[facility] [address] [place], [address] Neutrophils/100 WBC (Bld) 74.8 % High 47-[address] [facility] Comment on above: Performed By: #### B TS, L501.0250, L100.0100, L3890.6006, L509.8002 ####[facility] [address] [place], [address] Nucleated RBC (Bld) [#/Vol] 0 10*3/uL Normal 0-[address] [facility] Comment on above: Performed By: #### B TS, L501.0250, L100.0100, L3890.6006, L509.8002 ####[facility] [address] [place], [address] Platelet mean volume (Bld) [Entitic vol] 9.5 fL Normal 6.2-12.[address] [facility] Comment on above: Performed By: #### B TS, L501.0250, L100.0100, L3890.6006, L509.8002 ####[facility] [address] [place], [address] Platelets (Bld) [#/Vol] 300 10*3/uL Normal 150-[address] [facility] Comment on above: Performed By: #### B TS, L501.0250, L100.0100, L3890.6006, L509.8002 ####[facility] [address] [place], [address] RBC (Bld) [#/Vol] 4.28 10*6/uL Normal 4.2-5.4 [facility] Comment on above: Performed By: #### B TS, L501.0250, L100.0100, L3890.6006, L509.8002 ####[facility] [address] [place], [address] RDW SD 42.8 fl Normal 35.1-43.[address] [facility] Comment on above: Performed By: #### B TS, L501.0250, L100.0100, L3890.6006, L509.8002 ####[facility] [address] [place], [address] WBC (Bld) [#/Vol] 11.8 10*3/uL High 4.4-11.0 [facility] Comment on above: Performed By: #### B TS, L501.0250, L100.0100, L3890.6006, L509.8002 ####[facility] [address] [place], [place], [address] Eosinophil percentageOrdered By: Edel Diehl on 02-26-2025 Eosinophils/100 WBC (Bld) 1.0 % 0-[address] [facility] Erythrocyte distribution wid th ratioOrdered By: Edel Diehl on 02-26-2025 Erythrocyte distribution width (RBC) [Ratio] 13.5 % 11.6-14.[address] [facility] Erythrocyte distribution wid th standard deviationOrdered By: Edel Diehl on 02-26-2025 Erythrocyte distribution width (RBC) [Ratio] 42.8 fl 35.1-43.[address] [facility] Glucose Challenge Gest 1H 50 trini 02-26-2025 GLU GEST 50g 1H 172 mg/dL High 70-[address] [facility] Comment on above: Performed By: #### B TS, L501.0250, L100.0100, L3890.6006, L509.8002 ####[facility] [address] [place], [address] Glucose measurement at 2 haven rs post-dose gestational glucose tolerance testOrdered By: Edel Diehl on 02-26-2025 Glucose [Mass/Vol] 172 mg/dL High 70-140 [facility] HIVon 02-26-2025 HIV Non-Reactive Normal Nonreactive [facility] Comment on above: Result Comment: Non- ReactiveReactiveRepeatedly reactive samples must be confirmed according [facility] recommended confirmatory algorithms. The subresults foreither HIVAG or AHIV can be used as an aid in the selectionof the confirmation algorithm for reactive samples.Send out specimens with Reactive results to [facility] forconfirmation.Order the HIV antibody detection and differentiation:lc#[id number] Performed By: #### B TS, L501.0250, L100.0100, L3890.6006, L509.8002 ####[facility] [address] [place], [place], [address] Hematocrit Auto (Bld) [Volum e fraction]Ordered By: Edel Diehl on 02-26-2025 Hematocrit (Bld) [Volume fraction] 37.5 % 37-[address] [facility] Hemoglobin measurementOrdere d By: Edel Diehl on 02-26-2025 Hemoglobin (Bld) [Mass/Vol] 12.7 g/dL 12.0-15.[address] [facility] Immature granulocytes/100 WB C Auto (Bld)Ordered By: Edel Diehl on 02-26-2025 Immature granulocytes/100 WBC (Bld) 0.800 % 0.0-0.[address] [facility] Comment on above: IG% - Immature Granu locytes (promyelocytes, myelocytes and metamyelocytes) > 1% indicates that a LEFT SHIFT is Present. Laboratory - Chemistry and C hemistry - challengeOrdered By: Apple Lao on 02-26-2025 Glucose Ql (U) Negative [facility] Laboratory - UrinalysisOrder ed By: Apple Lao on 02-26-2025 Protein Ql (U) Negative [facility] MCV (mean corpuscular volume ) determinationOrdered By: Edel Diehl on 02-26-2025 MCV (RBC) [Entitic vol] 87.6 fL 81-99 [facility] Mean corpuscular hemoglobin (MCH) determinationOrdered By: Edel Diehl on 02-26-2025 MCH (RBC) [Entitic mass] 29.7 pg 27.0-32.[address] [facility] Mean corpuscular hemoglobin concentration (MCHC) determinationOrdered By: Edel Diehl on 02-26-2025 MCHC (RBC) [Mass/Vol] 33.9 g/dL 32-36 [facility] Mean platelet volume determi nationOrdered By: Edel Diehl on 02-26-2025 Platelet mean volume (Bld) [Entitic vol] 9.5 fL 6.2-12.[address] [facility] Monocyte percentageOrdered B y: Edel Diehl on 02-26-2025 Monocytes/100 WBC (Bld) 4.0 % 0-10 [facility] Neutrophil percentageOrdered By: Edel Diehl on 02-26-2025 Neutrophils/100 WBC (Bld) 74.8 % High 47-[address] [facility] No Panel InformationOrdered By: Apple Lao on 02-26-[address] [facility] No Panel InformationOrdered By: Edel Diehl on 02-26-2025 HIV (1&2) Antibody Non-Reactive Nonreactive [facility] Comment on above: Non-ReactiveReactive Repeatedly reactive samples must be confirmed according to CDC recommended confirmatory algorithms. The subresults for either HIVAG or AHIV can be used as an aid in the selection of the confirmation algorithm for reactive samples.Send out specimens with Reactive results to [facility] for confirmation.Order the HIV antibody detection and differentiation: #[id number] Non-Reactive Nonreactive [facility] Nucleated red blood cell per centageOrdered By: Edel Diehl on 02-26-2025 Nucleated RBC/100 WBC (Bld) [Ratio] 0 % 0-[address] [facility] Implementation Lead Office Visit Reporton 02-26-2025 Implementation Lead Office Visit Report Normal [facility] Platelet countOrdered By: Mickey Diehl on 02-26-2025 Platelets (Bld) [#/Vol] 300 10*3/uL 150-[address] [facility] RBC Auto (Bld) [#/Vol]Ordere d By: Edel Diehl on 02-26-2025 RBC (Bld) [#/Vol] 4.28 10*6/uL 4.2-5.4 [facility] Syphilis Antibodieson 2024 Syphilis Abs Non-Reactive Normal Nonreactive [facility] Comment on above: Performed By: #### B TS, L501.0250, L100.0100, L3890.6006, L509.8002 ####[facility] [address] [place], [address] Type AND Screenon 02-26-2025 ABO and Rh group Nom (Bld) Blood group B Rh(D) negative Normal [facility] Comment on above: Order Comment: PN Performed By: #### B TS, L501.0250, L100.0100, L3890.6006, L509.8002 ####[facility] [address] 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 Normal [facility] Implementation Lead Office Visit Reporton 01-29-2025 Implementation Lead Office Visit Report Normal [facility] Laboratory - Chemistry and C hemistry - challengeOrdered By: Apple Lao on 01-01-2025 Glucose Ql (U) Negative [facility] Laboratory - UrinalysisOrder ed By: Apple Lao on 01-01-2025 Protein Ql (U) Negative [facility] Implementation Lead Office Visit Reporton 01-01-2025 Implementation Lead Office Visit Report Normal [facility] Implementation Lead Office Visit Reporton 12-03-2024 Implementation Lead Office Visit Report Normal [facility] 12 Lead EKGon 11-10-2024 12 Lead EKG Normal [facility] Absolute lymphocyte countOrd ered By: [facility] on 11-10-2024 Lymphocytes Auto (Unsp spec) [#/Vol] 3.59 10*3/uL 0.83-4.[address] [facility] Absolute neutrophil countOrd ered By: [facility] on 11-10-2024 Neutrophils (Bld) [#/Vol] 9.3 10*3/uL High 2.0-7.[address] [facility] Automated lymphocyte count a s percentage of total leukocytesOrdered By: [facility] on 11-10-2024 Lymphocytes/100 WBC Auto (Unsp spec) 25.8 % 19-[address] [facility] Basic Metabolic Profile (BMP )on 11-10-2024 BUN/CRE 8.8 RATIO Low 10-[address] [facility] Comment on above: Performed By: #### L 100.0100, L500.2500 ####[facility] [address] [place], [address] CA,Total 9.9 mg/dL Normal 8.5-10.[address] [facility] Comment on above: Performed By: #### L 100.0100, L500.2500 ####[facility] [address] [place], [address] Chloride [Moles/Vol] 108 mmol/L High 98-107 [facility] Comment on above: Performed By: #### L 100.0100, L500.2500 ####[facility] [address] [place], [address] CO2 [Moles/Vol] 24.0 mmol/L Normal 21.0-32.[address] [facility] Comment on above: Performed By: #### L 100.0100, L500.2500 ####[facility] [address] [place], [address] Creatinine [Mass/Vol] 0.57 mg/dL Normal 0.55-1.02 [facility] Comment on above: Result Comment: The validity of the calculated GFR GFRAA in patients over70 years has not been determined. Clinical correlation isessential. Performed By: #### L 100.0100, L500.2500 ####[facility] [address] [place], [address] ECRCL 167.72 ml/min Normal [facility] Comment on above: Performed By: #### L 100.0100, L500.2500 ####[facility] [address] [place], [address] EST GFR - AA 157 mL/min Normal >[address] [facility] Comment on above: Result Comment: Afri can [place] GFR Calc Performed By: #### L 100.0100, L500.2500 ####[facility] [address] [place], [address] GAP 8 Normal 5-[address] [facility] Comment on above: Performed By: #### L 100.0100, L500.2500 ####[facility] [address] [place], [address] GFR/1.73 sq M.predicted among non-blacks MDRD (S/P/Bld) [Vol rate/Area] 129 mL/min/{1.73_m2} Normal >[address] [facility] Comment on above: Result Comment: Non- GFR Calc Performed By: #### L 100.0100, L500.2500 ####[facility] [address] [place], [address] Glucose [Mass/Vol] 86 mg/dL Normal 74-106 [facility] Comment on above: Performed By: #### L 100.0100, L500.2500 ####[facility] [address] [place], [address] Potassium [Moles/Vol] 3.4 mmol/L Low 3.5-5.1 [facility] Comment on above: Performed By: #### L 100.0100, L500.2500 ####[facility] [address] [place], [address] Sodium [Moles/Vol] 140 mmol/L Normal 136-145 [facility] Comment on above: Performed By: #### L 100.0100, L500.2500 ####[facility] [address] [place], [address] Urea nitrogen [Mass/Vol] 5 mg/dL Low 7-[address] [facility] Comment on above: Performed By: #### L 100.0100, L500.2500 ####[facility] [address] [place], [address] Basophil percentageOrdered B y: Ld Fermin on 11-10-2024 Basophils/100 WBC (Bld) 0.5 % 0-1 [facility] Blood urea nitrogen (BUN)/cr eatinine ratioOrdered By: Ld Fermin on 11-10-2024 Urea nitrogen/Creatinine [Mass ratio] 8.8 mg/mg Low 10-[address] [facility] CBC W/Diff, Automatedon 10-31 Absolute Lymph 3.59 X10 3/uL Normal 0.83-4.[address] [facility] Comment on above: Performed By: #### L 100.0100, L500.2500 ####[facility] [address] [place], [address] Absolute Neut 9.3 X10 3/uL High 2.0-7.[address] [facility] Comment on above: Performed By: #### L 100.0100, L500.2500 ####[facility] [address] [place], [address] Basophils/100 WBC (Bld) 0.5 % Normal 0-1 [facility] Comment on above: Performed By: #### L 100.0100, L500.2500 ####[facility] [address] [place], [address] Eosinophils/100 WBC (Bld) 1.2 % Normal 0-[address] [facility] Comment on above: Performed By: #### L 100.0100, L500.2500 ####[facility] [address] [place], [address] Erythrocyte distribution width (RBC) [Ratio] 12.8 % Normal 11.6-14.[address] [facility] Comment on above: Performed By: #### L 100.0100, L500.2500 ####[facility] [address] [place], [address] Hematocrit (Bld) [Volume fraction] 43.6 % Normal 37-[address] [facility] Comment on above: Performed By: #### L 100.0100, L500.2500 ####[facility] [address] [place], [address] Hemoglobin (Bld) [Mass/Vol] 14.8 g/dL Normal 12.0-15.[address] [facility] Comment on above: Performed By: #### L 100.0100, L500.2500 ####[facility] [address] [place], [address] IG% 0.600 Normal 0.0-0.[address] [facility] Comment on above: Result Comment: IG% - Immature Granulocytes (promyelocytes, myelocytes andmetamyelocytes) > 1% indicates that a LEFT SHIFT is Present. Performed By: #### L 100.0100, L500.2500 ####[facility] [address] [place], [address] Lymphocytes/100 WBC (Bld) 25.8 % Normal 19-[address] [facility] Comment on above: Performed By: #### L 100.0100, L500.2500 ####[facility] [address] [place], [address] MCH (RBC) [Entitic mass] 28.8 pg Normal 27.0-32.[address] [facility] Comment on above: Performed By: #### L 100.0100, L500.2500 ####[facility] [address] [place], [address] MCHC (RBC) [Mass/Vol] 33.9 g/dL Normal 32-36 [facility] Comment on above: Performed By: #### L 100.0100, L500.2500 ####[facility] [address] [place], [address] MCV (RBC) [Entitic vol] 84.8 fL Normal 81-99 [facility] Comment on above: Performed By: #### L 100.0100, L500.2500 ####[facility] [address] [place], [address] Monocytes/100 WBC (Bld) 5.1 % Normal 0-10 [facility] Comment on above: Performed By: #### L 100.0100, L500.2500 ####[facility] [address] [place], [address] Neutrophils/100 WBC (Bld) 66.8 % Normal 47-[address] [facility] Comment on above: Performed By: #### L 100.0100, L500.2500 ####[facility] [address] [place], [address] Nucleated RBC (Bld) [#/Vol] 0 10*3/uL Normal 0-[address] [facility] Comment on above: Performed By: #### L 100.0100, L500.2500 ####[facility] [address] [place], [address] Platelet mean volume (Bld) [Entitic vol] 9.3 fL Normal 6.2-12.[address] [facility] Comment on above: Performed By: #### L 100.0100, L500.2500 ####[facility] [address] [place], [address] Platelets (Bld) [#/Vol] 373 10*3/uL Normal 150-[address] [facility] Comment on above: Performed By: #### L 100.0100, L500.2500 ####[facility] [address] [place], [address] RBC (Bld) [#/Vol] 5.14 10*6/uL Normal 4.2-5.4 [facility] Comment on above: Performed By: #### L 100.0100, L500.2500 ####[facility] [address] [place], [address] RDW SD 39.5 fl Normal 35.1-43.[address] [facility] Comment on above: Performed By: #### L 100.0100, L500.2500 ####[facility] [address] [place], [address] WBC (Bld) [#/Vol] 13.9 10*3/uL High 4.4-11.0 [facility] Comment on above: Performed By: #### L 100.0100, L500.2500 ####[facility] [address] [place], [place], [id number] Carbon dioxide measurementOr dered By: Ldondina Fermin on 11-10-2024 CO2 [Moles/Vol] 24.0 mmol/L 21.0-32.[address] [facility] Chloride measurementOrdered By: Ld Fermin on 11-10-2024 Chloride [Moles/Vol] 108 mmol/L High 98-107 [facility] D-Dimer Quantitative (DVT/PE )on 11-10-2024 D-DIMER QUANT < 0.27 Low 0.27-0.[address] [facility] Comment on above: Result Comment: NORM AL D-Dimer level (<0.50) indicates no DVT or PE. Performed By: #### L 300.8000 ####[facility] [address] [place], [place], [address] Emergency Department Summary on 11-10-2024 Emergency Department Summary Normal [facility] Eosinophil percentageOrdered By: Ld Fermin on 11-10-2024 Eosinophils/100 WBC (Bld) 1.2 % 0-[address] [facility] Erythrocyte distribution wid th ratioOrdered By: [facility] Erythrocyte distribution width (RBC) [Ratio] 12.8 % 11.6-14.[address] [facility] Erythrocyte distribution wid th standard deviationOrdered By: Ld Fermin on 11-10-2024 Erythrocyte distribution width (RBC) [Ratio] 39.5 fl 35.1-43.[address] [facility] Glomerular filtration rate ( GFR) estimationOrdered By: Ld Fermin on 11-10-2024 GFR/1.73 sq M.predicted among non-blacks MDRD (S/P/Bld) [Vol rate/Area] 129 mL/min/{1.73_m2} >[address] [facility] Comment on above: Non- GFR Calc Glucose measurementOrdered B y: Ld Fermin on 11-10-2024 Glucose [Mass/Vol] 86 mg/dL 74-106 [facility] Hematocrit Auto (Bld) [Volum e fraction]Ordered By: Ld Fermin on 11-10-2024 Hematocrit (Bld) [Volume fraction] 43.6 % 37-[address] [facility] Hemoglobin measurementOrdere d By: Ld Fermin on 11-10-2024 Hemoglobin (Bld) [Mass/Vol] 14.8 g/dL 12.0-15.[address] [facility] Immature granulocytes/100 WB C Auto (Bld)Ordered By: Ld Fermin on 11-10-2024 Immature granulocytes/100 WBC (Bld) 0.600 % 0.0-0.[address] [facility] Comment on above: IG% - Immature Granu locytes (promyelocytes, myelocytes and metamyelocytes) > 1% indicates that a LEFT SHIFT is Present. MCV (mean corpuscular volume ) determinationOrdered By: Ld Fermin on 11-10-2024 MCV (RBC) [Entitic vol] 84.8 fL 81-99 [facility] Mean corpuscular hemoglobin (MCH) determinationOrdered By: Ld Fermin on 11-10-2024 MCH (RBC) [Entitic mass] 28.8 pg 27.0-32.[address] [facility] Mean corpuscular hemoglobin concentration (MCHC) determinationOrdered By: Ld Fermin on 11-10-2024 MCHC (RBC) [Mass/Vol] 33.9 g/dL 32-36 [facility] Mean platelet volume determi nationOrdered By: Ld Fermin on 11-10-2024 Platelet mean volume (Bld) [Entitic vol] 9.3 fL 6.2-12.[address] [facility] Monocyte percentageOrdered B y: Ld Fermin on 11-10-2024 Monocytes/100 WBC (Bld) 5.1 % 0-10 [facility] Neutrophil percentageOrdered By: Ld Fermin on 11-10-2024 Neutrophils/100 WBC (Bld) 66.8 % 47-[address] [facility] Nucleated red blood cell per centageOrdered By: Ld Fermin on 11-10-2024 Nucleated RBC/100 WBC (Bld) [Ratio] 0 % 0-[address] [facility] Platelet countOrdered By: Pedro Fermin on 11-10-2024 Platelets (Bld) [#/Vol] 373 10*3/uL 150-[address] [facility] Potassium measurementOrdered By: Ld Fermin on 11-10-2024 Potassium [Moles/Vol] 3.4 mmol/L Low 3.5-5.1 [facility] RBC Auto (Bld) [#/Vol]Ordere d By: Ld Fermin on 11-10-2024 RBC (Bld) [#/Vol] 5.14 10*6/uL 4.2-5.4 [facility] Serum anion gap measurementO rdered By: Ld Fermin on 11-10-2024 Anion gap [Moles/Vol] 8 mmol/L 5-15 [facility] Serum or plasma calcium kenisha urement (mass/volume)Ordered By: Ld Fermin on 11-10-2024 Calcium [Mass/Vol] 9.9 mg/dL 8.5-10.1 [facility] Serum or plasma creatinine m easurement (mass/volume)Ordered By: Ld Fermin on 11-10-2024 Creatinine [Mass/Vol] 0.57 mg/dL 0.55-1.02 [facility] Comment on above: The validity of the calculated GFR & GFRAA in patients over 70 years has not been determined. Clinical correlation is essential. Serum or plasma urea nitroge n measurement (mass/volume)Ordered By: Ld Fermin on 11-10-2024 Urea nitrogen [Mass/Vol] 5 mg/dL Low 7-[address] [facility] Sodium levelOrdered By: Ld Fermin on 11-10-2024 Sodium [Moles/Vol] 140 mmol/L 136-145 [facility] White blood cell (WBC) count Ordered By: Ld Fermin on 11-10-2024 WBC (Bld) [#/Vol] 13.9 10*3/uL High 4.4-11.0 [facility] Laboratory - Chemistry and C hemistry - challengeOrdered By: Edel Diehl on 11-05-2024 Glucose Ql (U) Negative [facility] Laboratory - UrinalysisOrder ed By: Edel Diehl on 11-05-2024 Protein Ql (U) Negative [facility] Implementation Lead Office Visit Reporton 11-05-2024 Implementation Lead Office Visit Report Normal [facility] HIV - WCHon 10-13-2024 HIV Non-Reactive Normal Nonreactive [facility] Comment on above: Order Comment: Reaso n for Exam: Performed By: #### L 3890.6100, L501.9520, L3890.6005, L3890.6300, L506.0400, L509.8000, L3410.9999, L501.9985, BTS, L100.0100, L509.4005 ####[facility] [address] [place], [address] L3410.9999on 10-13-2024 [facility]. COMMENT Normal . [facility] Comment on above: Order Comment: [id number] 4TSH RECEPTOR AB SERUM RF Result Comment: Test Ordered: [id number] Thyrotropin Receptor Ab, SerumThyrotropin Receptor Ab, Serum <1.10 IU/L Reference Range: 0.00-1.75Performed at: [facility] [address] [id number] Director: Sue Martinez MD, Phone: [phone] at: [facility] [address] [id number] Director: Huan Kuhn PhD, Phone: [phone] Performed By: #### L 3890.6100, L501.9520, L3890.6005, L3890.6300, L506.0400, L509.8000, L3410.9999, L501.9985, BTS, L100.0100, L509.4005 ####[facility] [address] [place], [address] Chlamydia/GC CONCHITA aptimaon CHLAMY,NUC ACID Negative Normal Negative [facility] Comment on above: Performed By: #### L 505.5000, L7000.1800, M100.2200 ####[facility] [address] [place], [place], [id number] GC BY NUC ACID Negative Normal Negative [facility] Comment on above: Result Comment: Perf ormed at: =G - [facility] [address] [place] [id number] Director: Ary Grider MD, Phone: [phone] Performed By: #### L 505.5000, L7000.1800, M100.2200 ####[facility] [address] [place], [place], [address] Hepatitis B Surface Antigeno n 10-12-2024 HEP B Surf Ag Non-Reactive Normal Nonreactive [facility] Comment on above: Order Comment: Reaso n for Exam: Performed By: #### L 3890.6100, L501.9520, L3890.6005, L3890.6300, L506.0400, L509.8000, L3410.9999, L501.9985, BTS, L100.0100, L509.4005 ####[facility] [address] [place], [place], [address] Hepatitis C Antibodyon 10-12 Hepatitis C AB Non-Reactive Normal Nonreactive [facility] Comment on above: Order Comment: Reaso n for Exam: Result Comment: Non Reactive: < 0.8 Equivocal: >/= 0.8 to < 1.0 Reactive: >/= 1.0The CDC requires that a reactive/equivocal HCV antibodyresult be sent out for confirmation. HCV Quant by PCRtesting. Performed By: #### L 3890.6100, L501.9520, L3890.6005, L3890.6300, L506.0400, L509.8000, L3410.9999, L501.9985, BTS, L100.0100, L509.4005 ####[facility] [address] [place], [place], [address] L509.8000on 10-12-2024 Syphilis Abs Non-Reactive Normal [facility] Comment on above: Order Comment: Reaso n for Exam: Performed By: #### L 3890.6100, L501.9520, L3890.6005, L3890.6300, L506.0400, L509.8000, L3410.9999, L501.9985, BTS, L100.0100, L509.4005 ####[facility] [address] [place], [address] Rubella IgGon 10-12-2024 Rubella IgG Reactive Normal Nonreactive [facility] Comment on above: Order Comment: Reaso n for Exam: Result Comment: Anti body Results Interpretation of Immune Status Non Reactive Presumed Non-Immune Equivocal Equivocal Reactive Presumed Immune Performed By: #### L 3890.6100, L501.9520, L3890.6005, L3890.6300, L506.0400, L509.8000, L3410.9999, L501.9985, BTS, L100.0100, L509.4005 ####[facility] [address] [place], [address] Urine Cultureon 10-12-2024 [facility] Mixed Gram Positive Organisms [place] Count 25,000-50,000 MIXC Mixed contaminants. Submit a new specimen if indicated. Normal [facility] Comment on above: Performed By: #### L 505.5000, L7000.1800, M100.2200 ####[facility] [address] [place], [address] CBC W/Diff, Automatedon 09-30 Absolute Lymph 2.85 X10 3/uL Normal 0.83-4.[address] [facility] Comment on above: Performed By: #### L 3890.6100, L501.9520, L3890.6005, L3890.6300, L506.0400, L509.8000, L3410.9999, L501.9985, BTS, L100.0100, L509.4005 ####[facility] [address] [place], [address] Absolute Neut 10.8 X10 3/uL High 2.0-7.[address] [facility] Comment on above: Performed By: #### L 3890.6100, L501.9520, L3890.6005, L3890.6300, L506.0400, L509.8000, L3410.9999, L501.9985, BTS, L100.0100, L509.4005 ####[facility] [address] [place], [address] Basophils/100 WBC (Bld) 0.5 % Normal 0-1 [facility] Comment on above: Performed By: #### L 3890.6100, L501.9520, L3890.6005, L3890.6300, L506.0400, L509.8000, L3410.9999, L501.9985, BTS, L100.0100, L509.4005 ####[facility] [address] [place], [address] Eosinophils/100 WBC (Bld) 1.4 % Normal 0-[address] [facility] Comment on above: Performed By: #### L 3890.6100, L501.9520, L3890.6005, L3890.6300, L506.0400, L509.8000, L3410.9999, L501.9985, BTS, L100.0100, L509.4005 ####[facility] [address] [place], [address] Erythrocyte distribution width (RBC) [Ratio] 12.8 % Normal 11.6-14.[address] [facility] Comment on above: Performed By: #### L 3890.6100, L501.9520, L3890.6005, L3890.6300, L506.0400, L509.8000, L3410.9999, L501.9985, BTS, L100.0100, L509.4005 ####[facility] [address] [place], [address] Hematocrit (Bld) [Volume fraction] 41.2 % Normal 37-[address] [facility] Comment on above: Performed By: #### L 3890.6100, L501.9520, L3890.6005, L3890.6300, L506.0400, L509.8000, L3410.9999, L501.9985, BTS, L100.0100, L509.4005 ####[facility] [address] [place], [address] Hemoglobin (Bld) [Mass/Vol] 14.1 g/dL Normal 12.0-15.[address] [facility] Comment on above: Performed By: #### L 3890.6100, L501.9520, L3890.6005, L3890.6300, L506.0400, L509.8000, L3410.9999, L501.9985, BTS, L100.0100, L509.4005 ####[facility] [address] [place], [address] IG% 0.500 Normal 0.0-0.[address] [facility] Comment on above: Result Comment: IG% - Immature Granulocytes (promyelocytes, myelocytes andmetamyelocytes) > 1% indicates that a LEFT SHIFT is Present. Performed By: #### L 3890.6100, L501.9520, L3890.6005, L3890.6300, L506.0400, L509.8000, L3410.9999, L501.9985, BTS, L100.0100, L509.4005 ####[facility] [address] [place], [address] Lymphocytes/100 WBC (Bld) 19.2 % Normal 19-[address] [facility] Comment on above: Performed By: #### L 3890.6100, L501.9520, L3890.6005, L3890.6300, L506.0400, L509.8000, L3410.9999, L501.9985, BTS, L100.0100, L509.4005 ####[facility] [address] [place], [address] MCH (RBC) [Entitic mass] 28.8 pg Normal 27.0-32.[address] [facility] Comment on above: Performed By: #### L 3890.6100, L501.9520, L3890.6005, L3890.6300, L506.0400, L509.8000, L3410.9999, L501.9985, BTS, L100.0100, L509.4005 ####[facility] [address] [place], [address] MCHC (RBC) [Mass/Vol] 34.2 g/dL Normal 32-36 [facility] Comment on above: Performed By: #### L 3890.6100, L501.9520, L3890.6005, L3890.6300, L506.0400, L509.8000, L3410.9999, L501.9985, BTS, L100.0100, L509.4005 ####[facility] [address] [place], [address] MCV (RBC) [Entitic vol] 84.1 fL Normal 81-99 [facility] Comment on above: Performed By: #### L 3890.6100, L501.9520, L3890.6005, L3890.6300, L506.0400, L509.8000, L3410.9999, L501.9985, BTS, L100.0100, L509.4005 ####[facility] [address] [place], [address] Monocytes/100 WBC (Bld) 5.2 % Normal 0-10 [facility] Comment on above: Performed By: #### L 3890.6100, L501.9520, L3890.6005, L3890.6300, L506.0400, L509.8000, L3410.9999, L501.9985, BTS, L100.0100, L509.4005 ####[facility] [address] [place], [place], [phone]([phone]) Neutrophils/100 WBC (Bld) 73.2 % High 47-[address] [facility] Comment on above: Performed By: #### L 3890.6100, L501.9520, L3890.6005, L3890.6300, L506.0400, L509.8000, L3410.9999, L501.9985, BTS, L100.0100, L509.4005 ####[facility] [address] [place], [place], [phone](603) Nucleated RBC (Bld) [#/Vol] 0 10*3/uL Normal 0-[address] [facility] Comment on above: Performed By: #### L 3890.6100, L501.9520, L3890.6005, L3890.6300, L506.0400, L509.8000, L3410.9999, L501.9985, BTS, L100.0100, L509.4005 ####[facility] [address] [place], [place], [phone](984) Platelet mean volume (Bld) [Entitic vol] 9.1 fL Normal 6.2-12.[address] [facility] Comment on above: Performed By: #### L 3890.6100, L501.9520, L3890.6005, L3890.6300, L506.0400, L509.8000, L3410.9999, L501.9985, BTS, L100.0100, L509.4005 ####[facility] [address] [place], [place], [phone](245) Platelets (Bld) [#/Vol] 417 10*3/uL Normal 150-[address] [facility] Comment on above: Performed By: #### L 3890.6100, L501.9520, L3890.6005, L3890.6300, L506.0400, L509.8000, L3410.9999, L501.9985, BTS, L100.0100, L509.4005 ####[facility] [address] [place], [address] RBC (Bld) [#/Vol] 4.90 10*6/uL Normal 4.2-5.4 [facility] Comment on above: Performed By: #### L 3890.6100, L501.9520, L3890.6005, L3890.6300, L506.0400, L509.8000, L3410.9999, L501.9985, BTS, L100.0100, L509.4005 ####[facility] [address] [place], [address] RDW SD 39.1 fl Normal 35.1-43.[address] [facility] Comment on above: Performed By: #### L 3890.6100, L501.9520, L3890.6005, L3890.6300, L506.0400, L509.8000, L3410.9999, L501.9985, BTS, L100.0100, L509.4005 ####[facility] [address] [place], [address] WBC (Bld) [#/Vol] 14.8 10*3/uL High 4.4-11.0 [facility] Comment on above: Performed By: #### L 3890.6100, L501.9520, L3890.6005, L3890.6300, L506.0400, L509.8000, L3410.9999, L501.9985, BTS, L100.0100, L509.4005 ####[facility] [address] [place], [place], [address] Hemoglobin A1con 10-09-2024 HbA1c (Bld) [Mass fraction] 5.2 % Normal 3.8-5.[address] [facility] Comment on above: Result Comment: Norm al < 5.7 % Prediabetic 5.7 - 6.4 % Diabetic >or= 6.5 % Please note range changes. Performed By: #### L 3890.6100, L501.9520, L3890.6005, L3890.6300, L506.0400, L509.8000, L3410.9999, L501.9985, BTS, L100.0100, L509.4005 ####[facility] [address] [place], [place], [phone] Implementation Lead Office Visit Reporton 10-09-2024 Implementation Lead Office Visit Report Normal [facility] T4 Free Directon 10-09-2024 T4 FREE DIRECT 1.29 ng/dL Normal 0.76-1.[address] [facility] Comment on above: Performed By: #### L 3890.6100, L501.9520, L3890.6005, L3890.6300, L506.0400, L509.8000, L3410.9999, L501.9985, BTS, L100.0100, L509.4005 ####[facility] [address] [place], [place], [phone] Thyroid Stim Hormone (TSH)on 10-09-2024 TSH 1.180 uIU/mL Normal 0.358-3.[address] [facility] Comment on above: Performed By: #### L 3890.6100, L501.9520, L3890.6005, L3890.6300, L506.0400, L509.8000, L3410.9999, L501.9985, BTS, L100.0100, L509.4005 ####[facility] [address] [place], [address] Type AND Screenon 10-09-2024 Ab SCREEN GEL Negative Normal [facility] Comment on above: Order Comment: PN Performed By: #### L 3890.6100, L501.9520, L3890.6005, L3890.6300, L506.0400, L509.8000, L3410.9999, L501.9985, BTS, L100.0100, L509.4005 ####[facility] [address] [place], [address] Urine Drug Screen (VISTA)on 10-09-2024 AMPHETAMINES Negative Normal <1000 ng/mL [facility] Comment on above: Order Comment: UNK Performed By: #### L 505.5000, L7000.1800, M100.2200 ####[facility] [address] [place], [address] BARBITIURATES Negative Normal < 200 ng/mL [facility] Comment on above: Order Comment: UNK Performed By: #### L 505.5000, L7000.1800, M100.2200 ####[facility] [address] [place], [address] BENZODIAZIPINE Negative Normal < 200 ng/mL [facility] Comment on above: Order Comment: UNK Performed By: #### L 505.5000, L7000.1800, M100.2200 ####[facility] [address] [place], [address] COCAINE Negative Normal < 300 ng/mL [facility] Comment on above: Order Comment: UNK Performed By: #### L 505.5000, L7000.1800, M100.2200 ####[facility] [address] [place], [address] ECSTACY Negative Normal < 500 ng/mL [facility] Comment on above: Order Comment: UNK Performed By: #### L 505.5000, L7000.1800, M100.2200 ####[facility] [address] [place], [address] METHADONE Negative Normal < 300 ng/mL [facility] Comment on above: Order Comment: UNK Performed By: #### L 505.5000, L7000.1800, M100.2200 ####[facility] [address] [place], [address] OPIATES Negative Normal < 300 ng/mL [facility] Comment on above: Order Comment: UNK Performed By: #### L 505.5000, L7000.1800, M100.2200 ####[facility] [address] [place], [address] PCP Negative Normal < 25 ng/mL [facility] Comment on above: Order Comment: UNK Performed By: #### L 505.5000, L7000.1800, M100.2200 ####[facility] [address] [place], [address] THC Negative Normal < 50 ng/mL [facility] Comment on above: Order Comment: UNK Performed By: #### L 505.5000, L7000.1800, M100.2200 ####[facility] [address] [place], [address] VISTA UDS PH [address] [facility] Comment on above: Order Comment: UNK Performed By: #### L 505.5000, L7000.1800, M100.2200 ####[facility] [address] [place], [address] Choriogonadotropin.beta subu niton 10-02-2024 [place] [address] m[IU]/mL High <5 [facility] Comment on above: Order Comment: Total HCG measurement is performed using the [employer] Access Immunoassay which detects intact HCG and free beta HCG subunit. This test is not indicated for use as a tumor marker. HCG testing is performed using a different test methodology at [facility] than other [place] [facility]. Direct result comparison should only be made within the same method. Result Comment: Low- level positive HCG results can be seen in early , in stephanie- or post-menopausal females due to normal pituitary HCG production, or with analytic interference. Repeat testing in 48-72 hours can aid in assessing for as results should double in this time period. FSH measurement is recommended in stephanie- or post-menopausal females as concurrent elevation of FSH can support pituitary production as the source of the HCG elevation. Performed By: #### 3 4549-6 #### DWAYNE Nair ([id number]) [facility] ([facility]) [address] [place] [address] Estradiolon 10-02-2024 E2 [Mass/Vol] 506 pg/mL Normal [facility] Comment on above: Order Comment: REF V ALUESFOLLICULAR PHASE 20-144MID CYCLE 64-357LUTEAL PHASE 56-214POSTMENOPAUSE < 32PREPUBERTY < 20FEMALE 10-18Y 8-110MALE 10-18Y < 20ADULT MALE < 40 Performed By: #### 3 4549-6 #### DWAYNE Nair ([id number]) [facility] ([facility]) [address] [place] [address] Progesteroneon 10-02-2024 Progesterone [Mass/Vol] 26.5 ng/mL Normal [facility] Comment on above: Result Comment: Ref Values Male <0.3- 1.2 Follicular Phase <0.3- 1.4 Luteal Phase 3.3-25.6 Mid-Luteal Phase 4.4-28.0 Postmenopausal <0.3- 0.7 Females: 1st Trimester 11.2- 90.0 2nd Trimester 25.6- 89.4 3RD Trimester 48.4-422.5 Patients receiving DHEA-S supplements may show false elevation of progesterone for results near 1.0 ng/mL. Contact laboratory at [phone] if alternative testing is needed. Performed By: #### 3 4549-6 #### DWAYNE Nair ([id number]) [facility] ([facility]) [address] [place] [address] US PELVIS OB TRANSABDOMINAL W TRANSVAGINAL UP TO 1ST TRIMESTERon 10-02-2024 US PELVIS OB TRANSABDOMINAL W TRANSVAGINAL UP TO 1ST TRIMESTER Interpreted By: Dyllan De Jesus, STUDY: US PELVIS OB TRANSABDOMINAL W TRANSVAGINAL UP TO 1ST TRIMESTER; 10/02/2024 9:55 am INDICATION: Signs/Symptoms:PREGN RADHA. COMPARISON: None. ACCESSION NUMBER(S): [id number] ORDERING CLINICIAN: LEVON BRAXTON TECHNIQUE: Multiple grayscale [...] De Jesus 10/02/2024 11:52 AM Dictation workstation: [id number] [facility] US Pelvis transvaginalon 1. Single live intrauterine . 2. Estimated gestational age: 6 weeks 2 days +/-3 days. MACRO: None Signed by: Dyllan De Jesus 10/02/2024 11:52 AM Dictation workstation: [id number] [facility] Interpreted By: Dyllan De Jesus, STUDY: US PELVIS OB TRANSABDOMINAL W TRANSVAGINAL UP TO 1ST TRIMESTER; 10/02/2024 9:55 am INDICATION: Signs/Symptoms:PREGN RADHA. COMPARISON: None. ACCESSION NUMBER(S): [id number] ORDERING CLINICIAN: LEVON BRAXTON TECHNIQUE: Multiple grayscale [...] INDICATION: Signs/Symptoms:PREGN RADHA. COMPARISON: None. ACCESSION NUMBER(S): [id number] ORDERING CLINICIAN: LEVON BRAXTON TECHNIQUE: Multiple grayscale [...] De Jesus 10/02/2024 11:52 AM Dictation workstation: [id number] [facility] Work Phone: Radiology Study observation (narrative) [facility] Work Phone: US Pelvis transvaginalOrdere d By: Dyllan De Jesus on 10-02-2024 [facility] Work Phone: Choriogonadotropin.beta subu niton 09-25-2024 [place] [address] m[IU]/mL High <5 [facility] Comment on above: Order Comment: Needs to go with a stat clinical molecular geneticist Total HCG measurement is performed using the [employer] Access Immunoassay which detects intact HCG and free beta HCG subunit. This test is not indicated for use as a tumor marker. HCG testing is performed using a different test methodology at [facility] than other [place] [facility] [place]. Direct result comparison should only be made within the same method. Result Comment: Low- level positive HCG results can be seen in early , in stephanie- or post-menopausal females due to normal pituitary HCG production, or with analytic interference. Repeat testing in 48-72 hours can aid in assessing for as results should double in this time period. FSH measurement is recommended in stephanie- or post-menopausal females as concurrent elevation of FSH can support pituitary production as the source of the HCG elevation. Performed By: #### 3 4549-6 #### DWAYNE Nair ([id number]) [facility] ([facility]) [address] [place] [address] Estradiolon 09-25-2024 E2 [Mass/Vol] 423 pg/mL Normal [facility] Comment on above: Order Comment: Needs to go with a stat courierREF VALUESFOLLICULAR PHASE 20-144MID CYCLE 64-357LUTEAL PHASE 56-214POSTMENOPAUSE < 32PREPUBERTY < 20FEMALE 10-18Y 8-110MALE 10-18Y < 20ADULT MALE < 40 Performed By: #### 3 4549-6 #### DWAYNE Nair ([id number]) [facility] ([facility]) [address] [place] [address] Progesteroneon 09-25-2024 Progesterone [Mass/Vol] 37.3 ng/mL Normal [facility] Comment on above: Order Comment: Needs to go with a stat clinical molecular geneticist Result Comment: Ref Values Male <0.3- 1.2 Follicular Phase <0.3- 1.4 Luteal Phase 3.3-25.6 Mid-Luteal Phase 4.4-28.0 Postmenopausal <0.3- 0.7 Females: 1st Trimester 11.2- 90.0 2nd Trimester 25.6- 89.4 3RD Trimester 48.4-422.5 Patients receiving DHEA-S supplements may show false elevation of progesterone for results near 1.0 ng/mL. Contact laboratory at [phone] if alternative testing is needed. Performed By: #### 3 4549-6 #### DWAYNE Nair ([id number]) [facility] ([facility]) [address] [place], [place] [address] US PELVIS OB TRANSABDOMINAL W TRANSVAGINAL UP TO 1ST TRIMESTERon 09-25-2024 US PELVIS OB TRANSABDOMINAL W TRANSVAGINAL UP TO 1ST TRIMESTER Interpreted By: Dyllan De Jesus, STUDY: US PELVIS OB TRANSABDOMINAL W TRANSVAGINAL UP TO 1ST TRIMESTER; 09/25/2024 9:44 am INDICATION: Signs/Symptoms:POSIT MANUEL TEST. COMPARISON: None. ACCESSION NUMBER(S): [id number] ORDERING CLINICIAN: LEVON BRAXTON TECHNIQUE: Multiple grayscale [...] De Jesus 09/25/2024 10:40 AM Dictation workstation: [id number] [facility] US Pelvis transvaginalon 1. Single [...] De Jesus 09/25/2024 10:40 AM Dictation workstation: [id number] Interpreted By: Dyllan De Jesus, STUDY: US PELVIS OB TRANSABDOMINAL W TRANSVAGINAL UP TO 1ST TRIMESTER; 09/25/2024 9:44 am INDICATION: Signs/Symptoms:POSIT MANUEL TEST. COMPARISON: None. ACCESSION NUMBER(S): [id number] ORDERING CLINICIAN: LEVON BRAXTON TECHNIQUE: Multiple grayscale [...] Signs/Symptoms:POSIT MANUEL TEST. COMPARISON: None. ACCESSION NUMBER(S): [id number] ORDERING CLINICIAN: LEVON BRAXTON TECHNIQUE: Multiple grayscale [...] De Jesus 09/25/2024 10:40 AM Dictation workstation: [id number] [facility] Work Phone: Radiology Study observation (narrative) [facility] Work Phone: US Pelvis transvaginalOrdere d By: Dyllan De Jesus on 09-25-2024 [facility] Work Phone: Choriogonadotropin.beta subu niton 09-15-2024 HCG.beta subunit Qn 889 m[IU]/mL High <5 [facility] Comment on above: Order Comment: Stat, send with clinical molecular geneticist Total HCG measurement is performed using the [employer] Access Immunoassay which detects intact HCG and free beta HCG subunit. This test is not indicated for use as a tumor marker. HCG testing is performed using a different test methodology at [facility] than other [place] [facility] [place]. Direct result comparison should only be made within the same method. Result Comment: Low- level positive HCG results can be seen in early , in stephanie- or post-menopausal females due to normal pituitary HCG production, or with analytic interference. Repeat testing in 48-72 hours can aid in assessing for as results should double in this time period. FSH measurement is recommended in stephanie- or post-menopausal females as concurrent elevation of FSH can support pituitary production as the source of the HCG elevation. Performed By: #### 3 4549-6 #### DWAYNE Nair ([id number]) [facility] ([facility]) [address] [place] [address] Estradiolon 09-15-2024 E2 [Mass/Vol] 492 pg/mL Normal [facility] Comment on above: Order Comment: Stat, send with courierREF VALUESFOLLICULAR PHASE 20-144MID CYCLE 64-357LUTEAL PHASE 56-214POSTMENOPAUSE < 32PREPUBERTY < 20FEMALE 10-18Y 8-110MALE 10-18Y < 20ADULT MALE < 40 Performed By: #### 3 4549-6 #### DWAYNE Nair ([id number]) [facility] ([facility]) [address] [place] [address] Progesteroneon 09-15-2024 Progesterone [Mass/Vol] 31.2 ng/mL Normal [facility] Comment on above: Order Comment: Stat, send with clinical molecular geneticist Result Comment: Ref Values Male <0.3- 1.2 Follicular Phase <0.3- 1.4 Luteal Phase 3.3-25.6 Mid-Luteal Phase 4.4-28.0 Postmenopausal <0.3- 0.7 Females: 1st Trimester 11.2- 90.0 2nd Trimester 25.6- 89.4 3RD Trimester 48.4-422.5 Patients receiving DHEA-S supplements may show false elevation of progesterone for results near 1.0 ng/mL. Contact laboratory at [phone] if alternative testing is needed. Performed By: #### 3 4549-6 #### DWAYNE Nair ([id number]) [facility] ([facility]) [address] [place] [address] Choriogonadotropin.beta subu niton 09-11-2024 HCG.beta subunit Qn 195 m[IU]/mL High <5 [facility] Comment on above: Order Comment: REF V ALUES FOLLICULAR PHASE 20-144 MID CYCLE 64-357 LUTEAL PHASE 56-214 POSTMENOPAUSE < 32 PREPUBERTY < 20 FEMALE 10-18Y 8-110 MALE 10-18Y < 20 ADULT MALE < 40 Result Comment: Low- level positive HCG results can be seen in early , in stephanie- or post-menopausal females due to normal pituitary HCG production, or with analytic interference. Repeat testing in 48-72 hours can aid in assessing for as results should double in this time period. FSH measurement is recommended in stephanie- or post-menopausal females as concurrent elevation of FSH can support pituitary production as the source of the HCG elevation. Performed By: #### 2 243-4 #### DWAYNE Nair ([id number]) [facility] ([facility]) [address] [place] [address] Estradiolon 09-11-2024 E2 [Mass/Vol] 347 pg/mL Normal [facility] Comment on above: Order Comment: REF V ALUES FOLLICULAR PHASE 20-144 MID CYCLE 64-357 LUTEAL PHASE 56-214 POSTMENOPAUSE < 32 PREPUBERTY < 20 FEMALE 10-18Y 8-110 MALE 10-18Y < 20 ADULT MALE < 40 Performed By: #### 2 243-4 #### DWAYNE Nair ([id number]) [facility] ([facility]) [address] [place] [address] Progesteroneon 09-11-2024 Progesterone [Mass/Vol] 43.6 ng/mL Normal [facility] Comment on above: Order Comment: Send with stat clinical molecular geneticist Result Comment: Ref Values Male <0.3- 1.2 Follicular Phase <0.3- 1.4 Luteal Phase 3.3-25.6 Mid-Luteal Phase 4.4-28.0 Postmenopausal <0.3- 0.7 Females: 1st Trimester 11.2- 90.0 2nd Trimester 25.6- 89.4 3RD Trimester 48.4-422.5 Patients receiving DHEA-S supplements may show false elevation of progesterone for results near 1.0 ng/mL. Contact laboratory at [phone] if alternative testing is needed. Performed By: #### 3 4549-6 #### DWAYNE Nair ([id number]) [facility] ([facility]) [address] [place] [address] Thyrotropinon 09-11-2024 TSH Qn 2.28 m[IU]/L Normal 0.44-3.98 [facility] Comment on above: Order Comment: REF V ALUES FOLLICULAR PHASE 20-144 MID CYCLE 64-357 LUTEAL PHASE 56-214 POSTMENOPAUSE < 32 PREPUBERTY < 20 FEMALE 10-18Y 8-110 MALE 10-18Y < 20 ADULT MALE < 40 Performed By: #### 2 243-4 #### DWAYNE Nair ([id number]) [facility] ([facility]) [address] [place] [address] Choriogonadotropin.beta subu niton 09-09-2024 HCG.beta subunit Qn 101 m[IU]/mL High <5 [facility] Comment on above: Order Comment: REF V ALUES FOLLICULAR PHASE 20-144 MID CYCLE 64-357 LUTEAL PHASE 56-214 POSTMENOPAUSE < 32 PREPUBERTY < 20 FEMALE 10-18Y 8-110 MALE 10-18Y < 20 ADULT MALE < 40 Result Comment: Low- level positive HCG results can be seen in early , in stephanie- or post-menopausal females due to normal pituitary HCG production, or with analytic interference. Repeat testing in 48-72 hours can aid in assessing for as results should double in this time period. FSH measurement is recommended in stephanie- or post-menopausal females as concurrent elevation of FSH can support pituitary production as the source of the HCG elevation. Performed By: #### 2 243-4 #### DWAYNE Nair ([id number]) [facility] ([facility]) [address] [place] [address] Progesteroneon 09-09-2024 Progesterone [Mass/Vol] 31.9 ng/mL Normal [facility] Comment on above: Order Comment: [...] results near 1.0 ng/mL. Contact laboratory at [phone] if alternative testing is needed. Performed By: #### 2 243-4 #### DWAYNE Nair ([id number]) [facility] ([facility]) [address] [place] [address] Estradiolon 09-04-2024 E2 [Mass/Vol] 222 pg/mL Normal [facility] Comment on above: Order Comment: REF V ALUES FOLLICULAR PHASE 20-144 MID CYCLE 64-357 LUTEAL PHASE 56-214 POSTMENOPAUSE < 32 PREPUBERTY < 20 FEMALE 10-18Y 8-110 MALE 10-18Y < 20 ADULT MALE < 40 Performed By: #### 2 243-4 #### DWAYNE Nair ([id number]) [facility] ([facility]) [address] [place] [address] Progesteroneon 09-04-2024 Progesterone [Mass/Vol] 33.6 ng/mL Normal [facility] Comment on above: Result Comment: Ref Values Male <0.3- 1.2 Follicular Phase <0.3- 1.4 Luteal Phase 3.3-25.6 Mid-Luteal Phase 4.4-28.0 Postmenopausal <0.3- 0.7 Females: 1st Trimester 11.2- 90.0 2nd Trimester 25.6- 89.4 3RD Trimester 48.4-422.5 Patients receiving DHEA-S supplements may show false elevation of progesterone for results near 1.0 ng/mL. Contact laboratory at [phone] if alternative testing is needed. Performed By: #### 2 243-4 #### DWAYNE Nair ([id number]) [facility] ([facility]) [address] [place] [address] Progesteroneon 08-25-2024 Progesterone [Mass/Vol] 0.5 ng/mL Normal [facility] Comment on above: Order Comment: [...] results near 1.0 ng/mL. Contact laboratory at [phone] if alternative testing is needed. Performed By: #### 2 243-4 #### DWAYNE Nair ([id number]) [facility] ([facility]) [address] [place] [address] Estradiolon 08-21-2024 E2 [Mass/Vol] 427 pg/mL Normal [facility] Comment on above: Order Comment: REF V ALUES FOLLICULAR PHASE 20-144 MID CYCLE 64-357 LUTEAL PHASE 56-214 POSTMENOPAUSE < 32 PREPUBERTY < 20 FEMALE 10-18Y 8-110 MALE 10-18Y < 20 ADULT MALE < 40 Performed By: #### 2 243-4 #### DWAYNE Nair ([id number]) [facility] ([facility]) [address] [place] [address] Lutropinon 11-22-2024 Lutropin Qn 11.4 IU/L Normal [facility] Comment on above: Result Comment: LH R eference Values Follicular Phase 1.9-12.5 IU/L Mid-Cycle 8.7-76.3 IU/L Luteal Phase 0.5-16.9 IU/L Post Menopause 5.0-55.2 IU/L Children 0- 6.0 IU/L Adult Male 18-70 years 1.5- 9.3 IU/L Adult Male >70 years 3.1-34.6 IU/L Performed By: #### 2 1198-7 #### VILLATORO ENRIQUETA ([id number]) [facility] ([facility]) [address] [place] [address] Progesteroneon 08-21-2024 Progesterone [Mass/Vol] 0.6 ng/mL Normal [facility] Comment on above: Result Comment: Ref Values Male <0.3- 1.2 Follicular Phase <0.3- 1.4 Luteal Phase 3.3-25.6 Mid-Luteal Phase 4.4-28.0 Postmenopausal <0.3- 0.7 Females: 1st Trimester 11.2- 90.0 2nd Trimester 25.6- 89.4 3RD Trimester 48.4-422.5 Patients receiving DHEA-S supplements may show false elevation of progesterone for results near 1.0 ng/mL. Contact laboratory at [phone] if alternative testing is needed. Performed By: #### 2 243-4 #### DWAYNE Nair ([id number]) [facility] ([facility]) [address] [place], [place] [address] US PELVIS TRANSABDOMINAL WIT H TRANSVAGINALon 08-21-2024 US PELVIS TRANSABDOMINAL WITH TRANSVAGINAL Interpreted By: Jeremy Brower, STUDY: US PELVIS TRANSABDOMINAL WITH TRANSVAGINAL; 08/21/2024 8:38 am INDICATION: Signs/Symptoms:ROMULO PABLO ,Z31.83 Encounter for assisted reproductive fertility procedure cycle COMPARISON: 08/14/2024 ACCESSION NUMBER(S): [id number] ORDERING CLINICIAN: LVEON BRAXTON TECHNIQUE: Multiple multiplanar static amos scale, [...] Jeremy Brower 08/22/2024 10:52 AM Dictation workstation: [id number] [facility] Choriogonadotropin.beta subu niton 08-14-2024 HCG.beta subunit Qn m[IU]/mL Normal <5 [facility] Comment on above: Order Comment: Total HCG measurement is performed using the [employer] Access Immunoassay which detects intact HCG and free beta HCG subunit. This test is not indicated for use as a tumor marker. HCG testing is performed using a different test methodology at [facility] than other [facility] [place] [facility]. Direct result comparison should only be made within the same method. Performed By: #### 2 1198-7 #### VILLATOOR ENRIQUETA ([id number]) [facility] ([facility]) [address] [place] [address] Estradiolon 08-14-2024 E2 [Mass/Vol] 42 pg/mL [facility] Comment on above: Order Comment: Total HCG measurement is performed using the [employer] Access Immunoassay which detects intact HCG and free beta HCG subunit. This test is not indicated for use as a tumor marker. HCG testing is performed using a different test methodology at [facility] than [facility]. Direct result comparison should only be made within the same method. Performed By: #### 2 1198-7 #### SHAUNA ROBISON ([id number]) [facility] ([facility]) [address] [place], [place] [address] Follitropin and Lutropin rhoades el Qnon 08-14-2024 Follitropin Qn 6.4 IU/L [facility] Comment on above: Order Comment: Total HCG measurement is performed using the [employer] Access Immunoassay which detects intact HCG and free beta HCG subunit. This test is not indicated for use as a tumor marker. HCG testing is performed using a different test methodology at [facility] than other [facility] [facility] [facility]. Direct result comparison should only be made within the same method. Result Comment: FSH Ref Values Follicular 2.0-12.0 IU/L Mid-Cycle 12.0-25.0 IU/L Luteal Phase 2.0-12.0 IU/L Menopause 30.0-150.0 IU/L Pre-puberty 50% Adult IU/L Adult Male 2.0-10.0 IU/L Infants 0.0-1.0 IU/L Performed By: #### 2 1198-7 #### SHAUNA ROBISON ([id number]) [facility] ([facility]) [address] [place], [place] [address] Lutropin Qn 5.0 IU/L [facility] Comment on above: Order Comment: Total HCG measurement is performed using the [employer] Access Immunoassay which detects intact HCG and free beta HCG subunit. This test is not indicated for use as a tumor marker. HCG testing is performed using a different test methodology at [facility] than other [facility] [place] [facility]. Direct result comparison should only be made within the same method. Result Comment: LH R eference Values Follicular Phase 1.9-12.5 IU/L Mid-Cycle 8.7-76.3 IU/L Luteal Phase 0.5-16.9 IU/L Post Menopause 5.0-55.2 IU/L Children 0- 6.0 IU/L Adult Male 18-70 years 1.5- 9.3 IU/L Adult Male >70 years 3.1-34.6 IU/L Performed By: #### 2 1198-7 #### SHAUNA ROBISON ([id number]) [facility] ([facility]) [facility] [place] [address] Progesteroneon 08-14-2024 Progesterone [Mass/Vol] 0.5 ng/mL Normal [facility] Comment on above: Order Comment: Total HCG measurement is performed using the [employer] Access Immunoassay which detects intact HCG and free beta HCG subunit. This test is not indicated for use as a tumor marker. HCG testing is performed using a different test methodology at [facility] than other [facility] [place] [facility]. Direct result comparison should only be made within the same method. Result Comment: Ref Values Male <0.3- 1.2 Follicular Phase <0.3- 1.4 Luteal Phase 3.3-25.6 Mid-Luteal Phase 4.4-28.0 Postmenopausal <0.3- 0.7 Females: 1st Trimester 11.2- 90.0 2nd Trimester 25.6- 89.4 3RD Trimester 48.4-422.5 Patients receiving DHEA-S supplements may show false elevation of progesterone for results near 1.0 ng/mL. Contact laboratory at [phone] if alternative testing is needed. Performed By: #### 2 1198-7 #### SHAUNA ROBISON ([id number]) [facility] ([facility]) [address] [place] [address] Thyrotropinon 08-14-2024 TSH Qn 1.86 m[IU]/L Normal 0.44-3.98 [facility] Comment on above: Order Comment: Total HCG measurement is performed using the [employer] Access Immunoassay which detects intact HCG and free beta HCG subunit. This test is not indicated for use as a tumor marker. HCG testing is performed using a different test methodology at [facility] than other [facility] [place] [facility]. Direct result comparison should only be made within the same method. Performed By: #### 2 1198-7 #### SHAUNA ROBISON ([id number]) [facility] ([facility]) [address] [place], [place] [address] US PELVIS TRANSABDOMINAL WIT H TRANSVAGINALon 08-14-2024 US PELVIS TRANSABDOMINAL WITH TRANSVAGINAL Interpreted By: Ravi Triplett, STUDY: US PELVIS TRANSABDOMINAL WITH TRANSVAGINAL; ; 08/14/2024 8:54 am INDICATION: Signs/Symptoms:ROMULO WAKEFIELD. COMPARISON: 06/24/2024 ACCESSION NUMBER(S): [id number] ORDERING CLINICIAN: LEVON BRAXTON TECHNIQUE: Multiple transabdominal [...] Ravi Triplett 08/15/2024 2:03 PM Dictation workstation: [id number] [facility] Estradiolon 06-24-2024 E2 [Mass/Vol] 453 pg/mL [facility] Comment on above: Order Comment: Total HCG measurement is performed using the [employer] [place] Access Immunoassay which detects intact HCG and free beta HCG subunit. This test is not indicated for use as a tumor marker. HCG testing is performed using a different test methodology at [facility] than other [facility] [place] [facility]. Direct result comparison should only be made within the same method. Performed By: #### 2 1198-7 #### VILLATORO ENRIQUETA ([id number]) [facility] ([facility]) [address] [place] [address] Lutropinon 06-24-2024 Lutropin Qn 3.1 IU/L [facility] Comment on above: Result Comment: LH R eference Values Follicular Phase 1.9-12.5 IU/L Mid-Cycle 8.7-76.3 IU/L Luteal Phase 0.5-16.9 IU/L Post Menopause 5.0-55.2 IU/L Children 0- 6.0 IU/L Adult Male 18-70 years 1.5- 9.3 IU/L Adult Male >70 years 3.1-34.6 IU/L Performed By: #### 2 1198-7 #### SHAUNA ROBISON ([id number]) [facility] ([facility]) [address] [place], [place] [address] Progesteroneon 06-24-2024 Progesterone [Mass/Vol] 0.6 ng/mL Normal [facility] Comment on above: Result Comment: Ref Values Male <0.3- 1.2 Follicular Phase <0.3- 1.4 Luteal Phase 3.3-25.6 Mid-Luteal Phase 4.4-28.0 Postmenopausal <0.3- 0.7 Females: 1st Trimester 11.2- 90.0 2nd Trimester 25.6- 89.4 3RD Trimester 48.4-422.5 Patients receiving DHEA-S supplements may show false elevation of progesterone for results near 1.0 ng/mL. Contact laboratory at [phone] if alternative testing is needed. Performed By: #### 2 1198-7 #### SHAUNA ROBISON ([id number]) [facility] ([facility]) [address] [place] [address] GERRY US PELVIS LIMITED FOLLIC LES-FOLLICLE STUDIES PERFORMEDon 06-24-2024 GERRY US PELVIS LIMITED FOLLICLES-FOLLICLE STUDIES PERFORMED Interpreted By: Xiang Bowden, STUDY: US PELVIS TRANSABDOMINAL WITH TRANSVAGINAL; 06/24/2024 9:01 am INDICATION: Signs/Symptoms:ROMULO WAKEFIELDJai ,Z31.83 Encounter for assisted reproductive fertility procedure cycle COMPARISON: None. ACCESSION NUMBER(S): [id number] ORDERING CLINICIAN: LEVON BRAXTON TECHNIQUE: Multiple multiplanar [...] Xiang Bowden 06/25/2024 6:46 AM Dictation workstation: [id number] [facility] US PELVIS TRANSABDOMINAL WIT H TRANSVAGINALon 06-24-2024 US PELVIS TRANSABDOMINAL WITH TRANSVAGINAL Interpreted By: Xiang Bowden, STUDY: US PELVIS TRANSABDOMINAL WITH TRANSVAGINAL; 06/24/2024 9:01 am INDICATION: Signs/Symptoms:ROMULO PABLO ,Z31.83 Encounter for assisted reproductive fertility procedure cycle COMPARISON: None. ACCESSION NUMBER(S): [id number] ORDERING CLINICIAN: LEVON BRAXTON TECHNIQUE: Multiple multiplanar [...] Xiang Bowden 06/25/2024 6:46 AM Dictation workstation: [id number] [facility] Estradiolon 06-22-2024 E2 [Mass/Vol] 124 pg/mL Normal [facility] Comment on above: Order Comment: REF V ALUES FOLLICULAR PHASE 20-144 MID CYCLE 64-357 LUTEAL PHASE 56-214 POSTMENOPAUSE < 32 PREPUBERTY < 20 FEMALE 10-18Y 8-110 MALE 10-18Y < 20 ADULT MALE < 40 Performed By: #### 2 243-4 #### DWAYNE Nair ([id number]) [facility] ([facility]) [address] [place] [address] Lutropinon 06-22-2024 Lutropin Qn 1.9 IU/L Normal [facility] Comment on above: Result Comment: LH R eference Values Follicular Phase 1.9-12.5 IU/L Mid-Cycle 8.7-76.3 IU/L Luteal Phase 0.5-16.9 IU/L Post Menopause 5.0-55.2 IU/L Children 0- 6.0 IU/L Adult Male 18-70 years 1.5- 9.3 IU/L Adult Male >70 years 3.1-34.6 IU/L Performed By: #### 1 0501-5 #### DWAYNE Nair ([id number]) [facility] ([facility]) [address] [place] [address] Progesteroneon 06-22-2024 Progesterone [Mass/Vol] 0.4 ng/mL Normal [facility] Comment on above: Result Comment: Ref Values Male <0.3- 1.2 Follicular Phase <0.3- 1.4 Luteal Phase 3.3-25.6 Mid-Luteal Phase 4.4-28.0 Postmenopausal <0.3- 0.7 Females: 1st Trimester 11.2- 90.0 2nd Trimester 25.6- 89.4 3RD Trimester 48.4-422.5 Patients receiving DHEA-S supplements may show false elevation of progesterone for results near 1.0 ng/mL. Contact laboratory at [phone] if alternative testing is needed. Performed By: #### 2 1198-7 #### VILLATORO ENRIQUETA ([id number]) [facility] ([facility]) [address] [place] [address] GERRY US PELVIS LIMITED FOLLIC LES-FOLLICLE STUDIES PERFORMEDon 06-22-2024 GERRY US PELVIS LIMITED FOLLICLES-FOLLICLE STUDIES PERFORMED Interpreted By: Xiang Bowden, STUDY: US PELVIS TRANSABDOMINAL WITH TRANSVAGINAL; 06/22/2024 9:02 am INDICATION: Signs/Symptoms:ROMULO PABLOZ31.83 Encounter for assisted reproductive fertility procedure cycle COMPARISON: None. ACCESSION NUMBER(S): [id number] ORDERING CLINICIAN: LEVON BRAXTON TECHNIQUE: Multiple multiplanar [...] Xiang Bowden 06/23/2024 5:37 AM Dictation workstation: [id number] [facility] US PELVIS TRANSABDOMINAL WIT H TRANSVAGINALon 06-22-2024 US PELVIS TRANSABDOMINAL WITH TRANSVAGINAL Interpreted By: Xiang Bowden, STUDY: US PELVIS TRANSABDOMINAL WITH TRANSVAGINAL; 06/22/2024 9:02 am INDICATION: Signs/Symptoms:ROMULO PABLOZ31.83 Encounter for assisted reproductive fertility procedure cycle COMPARISON: None. ACCESSION NUMBER(S): [id number] ORDERING CLINICIAN: LEVON BRAXTON TECHNIQUE: Multiple multiplanar [...] Xiang Bowden 06/23/2024 5:37 AM Dictation workstation: [id number] [facility] Estradiolon 06-19-2024 E2 [Mass/Vol] 49 pg/mL [facility] Comment on above: Order Comment: REF V ALUES FOLLICULAR PHASE 20-144 MID CYCLE 64-357 LUTEAL PHASE 56-214 POSTMENOPAUSE < 32 PREPUBERTY < 20 FEMALE 10-18Y 8-110 MALE 10-18Y < 20 ADULT MALE < 40 Performed By: #### 2 243-4 #### DWAYNE Nair ([id number]) [facility] ([facility]) [address] [place] [address] Lutropinon 06-19-2024 Lutropin Qn 7.0 IU/L [facility] Comment on above: Result Comment: LH R eference Values Follicular Phase 1.9-12.5 IU/L Mid-Cycle 8.7-76.3 IU/L Luteal Phase 0.5-16.9 IU/L Post Menopause 5.0-55.2 IU/L Children 0- 6.0 IU/L Adult Male 18-70 years 1.5- 9.3 IU/L Adult Male >70 years 3.1-34.6 IU/L Performed By: #### 1 0501-5 #### DWAYNE Nair ([id number]) [facility] ([facility]) [address] [place] [address] Progesteroneon 06-19-2024 Progesterone [Mass/Vol] 0.5 ng/mL Normal [facility] Comment on above: Result Comment: Ref Values Male <0.3- 1.2 Follicular Phase <0.3- 1.4 Luteal Phase 3.3-25.6 Mid-Luteal Phase 4.4-28.0 Postmenopausal <0.3- 0.7 Females: 1st Trimester 11.2- 90.0 2nd Trimester 25.6- 89.4 3RD Trimester 48.4-422.5 Patients receiving DHEA-S supplements may show false elevation of progesterone for results near 1.0 ng/mL. Contact laboratory at [phone] if alternative testing is needed. Performed By: #### 2 839-9 #### DWAYNE Nair ([id number]) [facility] ([facility]) [address] [place] [address] GERRY US PELVIS LIMITED FOLLIC LES-FOLLICLE STUDIES PERFORMEDon 06-19-2024 GERRY US PELVIS LIMITED FOLLICLES-FOLLICLE STUDIES PERFORMED Interpreted By: Lawson Wynn, STUDY: US PELVIS TRANSABDOMINAL WITH TRANSVAGINAL; 06/19/2024 9:11 am INDICATION: Signs/Symptoms:CLIFFKLEVER ZUNIGAMichaelJai ,Z31.83 Encounter for assisted reproductive fertility procedure cycle COMPARISON: Prior exam from 06/15/2024.. ACCESSION NUMBER(S): [id number] ORDERING CLINICIAN: LEVON BRAXTON TECHNIQUE: Multiple multiplanar [...] Lawson Wynn 06/20/2024 4:53 PM Dictation workstation: [id number] [facility] US PELVIS TRANSABDOMINAL WIT H TRANSVAGINALon 06-19-2024 US PELVIS TRANSABDOMINAL WITH TRANSVAGINAL Interpreted By: Lawson Wynn, STUDY: US PELVIS TRANSABDOMINAL WITH TRANSVAGINAL; 06/19/2024 9:11 am INDICATION: Signs/Symptoms:ROMULO PABLO ,Z31.83 Encounter for assisted reproductive fertility procedure cycle COMPARISON: Prior exam from 06/15/2024.. ACCESSION NUMBER(S): [id number] ORDERING CLINICIAN: LEVON BRAXTON TECHNIQUE: Multiple multiplanar [...] Lawson Wynn 06/20/2024 4:53 PM Dictation workstation: [id number] [facility] Choriogonadotropin.beta subu niton 06-15-2024 HCG.beta subunit Qn m[IU]/mL Normal <5 [facility] Comment on above: Order Comment: Total HCG measurement is performed using the [employer] Access Immunoassay which detects intact HCG and free beta HCG subunit. This test is not indicated for use as a tumor marker. HCG testing is performed using a different test methodology at [facility] than other [facility] [place] [facility]. Direct result comparison should only be made within the same method. Performed By: #### 2 1198-7 #### VILLATORO ENRIQUETA ([id number]) [facility] ([facility]) [address] [place] [address] Estradiolon 06-15-2024 E2 [Mass/Vol] 47 pg/mL [facility] Comment on above: Order Comment: REF V ALUES FOLLICULAR PHASE 20-144 MID CYCLE 64-357 LUTEAL PHASE 56-214 POSTMENOPAUSE < 32 PREPUBERTY < 20 FEMALE 10-18Y 8-110 MALE 10-18Y < 20 ADULT MALE < 40 Performed By: #### 2 243-4 #### DWAYNE Nair ([id number]) [facility] ([facility]) [address] [place] [address] Follitropin and Lutropin rhoades el Qnon 06-15-2024 Follitropin Qn 5.0 IU/L [facility] Comment on above: Result Comment: FSH Ref Values Follicular 2.0-12.0 IU/L Mid-Cycle 12.0-25.0 IU/L Luteal Phase 2.0-12.0 IU/L Menopause 30.0-150.0 IU/L Pre-puberty 50% Adult IU/L Adult Male 2.0-10.0 IU/L Infants 0.0-1.0 IU/L Performed By: #### 3 4549-6 #### DWAYNE Nair ([id number]) [facility] ([facility]) [address] [place] [address] Lutropin Qn 2.9 IU/L Normal [facility] Comment on above: Result Comment: LH R eference Values Follicular Phase 1.9-12.5 IU/L Mid-Cycle 8.7-76.3 IU/L Luteal Phase 0.5-16.9 IU/L Post Menopause 5.0-55.2 IU/L Children 0- 6.0 IU/L Adult Male 18-70 years 1.5- 9.3 IU/L Adult Male >70 years 3.1-34.6 IU/L Performed By: #### 3 4549-6 #### DWAYNE Nair ([id number]) [facility] ([facility]) [address] [place] [address] Progesteroneon 06-15-2024 Progesterone [Mass/Vol] 0.5 ng/mL Normal [facility] Comment on above: Result Comment: Ref Values Male <0.3- 1.2 Follicular Phase <0.3- 1.4 Luteal Phase 3.3-25.6 Mid-Luteal Phase 4.4-28.0 Postmenopausal <0.3- 0.7 Females: 1st Trimester 11.2- 90.0 2nd Trimester 25.6- 89.4 3RD Trimester 48.4-422.5 Patients receiving DHEA-S supplements may show false elevation of progesterone for results near 1.0 ng/mL. Contact laboratory at [phone] if alternative testing is needed. Performed By: #### 2 839-9 #### DWAYNE Nair ([id number]) [facility] ([facility]) [address] [place] [address] Thyrotropinon 06-15-2024 TSH Qn 2.68 m[IU]/L Normal 0.44-3.98 [facility] Comment on above: Order Comment: TSH t esting is performed using different testing methodology at [facility] than at other [facility] [place] [facility]. Direct result comparisons should only be made within the same method. Performed By: #### 3 016-3 #### SHAUNA ROBISON ([id number]) [facility] ([facility]) [address] [place] [address] US PELVIS TRANSABDOMINAL WIT H TRANSVAGINALon 06-15-2024 US PELVIS TRANSABDOMINAL WITH TRANSVAGINAL Interpreted By: Dyllan De Jesus, STUDY: US PELVIS TRANSABDOMINAL WITH TRANSVAGINAL; ; 06/15/2024 8:31 am INDICATION: Signs/Symptoms:Ferti lity. COMPARISON: None. ACCESSION NUMBER(S): [id number] ORDERING CLINICIAN: LEVON BRAXTON TECHNIQUE: Multiple multiplanar [...] De Jesus 06/15/2024 12:12 PM Dictation workstation: [id number] [facility] US Pelvis transvaginalon 1. Single follicle within the right ovary, as above. 2. Tiny hypoechoic focus in the endometrium, of uncertain etiology. MACRO: None Signed by: Dyllan De Jesus 06/15/2024 12:12 PM Dictation workstation: [id number] Interpreted By: Dyllan De Jesus, STUDY: US PELVIS TRANSABDOMINAL WITH TRANSVAGINAL; ; 06/15/2024 8:31 am INDICATION: Signs/Symptoms:Ferti lity. COMPARISON: None. ACCESSION NUMBER(S): [id number] ORDERING CLINICIAN: LEVON BRAXTON TECHNIQUE: Multiple multiplanar [...] INDICATION: Signs/Symptoms:Ferti lity. COMPARISON: None. ACCESSION NUMBER(S): [id number] ORDERING CLINICIAN: LEVON BRAXTON TECHNIQUE: Multiple multiplanar [...] De Jesus 06/15/2024 12:12 PM Dictation workstation: [id number] [facility] Work Phone: Radiology Study observation (narrative) [facility] Work Phone: US Pelvis transvaginalOrdere d By: Dyllan De Jesus on 06-15-2024 [facility] Work Phone: CNOVon 01-12-2024 CNOV Office Visit (WSTR) BARBY CABALLERO ([id number]) 1990 F Date Time Provider Department 01/12/24 10:30 AM GINA SAHU [facility] During your visit today, we recorded the following information about you: Temperature Pulse Respiration Blood pressure 97.9 degrees 134/minute 20/minute 118/78 Weight 120.3 kg Gina Sahu APRN.CNP 01/12/2024 11:22 AM Signed CC: Patient presents [...] Patient agreeable to treatment plan. Gina Sahu APRN.LUBRICATION SERVICER Allergies As of Date: 01/12/2024 (No Active [...] MOUTH EVERY (more content not included)... Normal [facility] TSH W/FT4 REFLEXon TSH 1.264 uIU/mL Normal 0.550-4.780 [facility] Comment on above: Performed By: #### T SHQR #### [facility] (DEFAULT) [address] [place] [address] PROGESTERONEon 04-03-2023 Progesterone 15.64 ng/mL Normal [facility] Comment on above: Result Comment: This test is not recommended for patients receiving DHEA due to cross reactivity of DHEA S in the progesterone assay. Reference Range: Males: 0.28-1.22 ng/mL Females: Follicular phase 0-1.40 ng/mL Luteal phase 3.34-25.56 ng/mL Midluteal phase 4.44-28.03 ng/mL Postmenopausal 0-0.73 ng/mL Performed By: #### P DIANDRA #### [facility] (DEFAULT) [address] [place] [address] MAMMO DIAGNOSTIC WITH ADRIANA B ILATERALon 01-09-2023 MAMMO DIAGNOSTIC WITH ADRIANA BILATERAL EXAM: MAMMO DIAGNOSTIC WITH ADRIANA BILATERAL, US BREAST LIMITED UNILATERAL RIGHT, 01/09/2023 09:20 AM (accession [id number]), 01/09/2023 09:31 AM (accession [id number]) CLINICAL INDICATIONS: The patient reports right upper [...] Clinical correlation/manageme nt. Recommendation Laterality: Right [facility] MG Breast - bilateral Diagno sticon 01-09-2023 IMPRESSION: 1. No suspicious mammographic or sonographic findings in the right breast to explain symptoms. 2. No suspicious mammographic findings in the left breast. BI-RADS: 1: Negative Recommendation: Clinical correlation/manageme nt. Recommendation Laterality: Right OLOGY EXAM: MAMMO DIAGNOSTIC WITH ADRIANA BILATERAL, US BREAST LIMITED UNILATERAL RIGHT, 01/09/2023 09:20 AM (accession [id number]), 01/09/2023 09:31 AM (accession [id number]) CLINICAL INDICATIONS: The patient reports right upper [...] LIMITED UNILATERAL RIGHT, 01/09/2023 09:20 AM (accession [id number]), 01/09/2023 09:31 AM (accession [id number]) CLINICAL INDICATIONS: The patient reports right upper [...] Clinical correlation/manageme nt. Recommendation Laterality: Right [facility] Radiology Study observation (narrative) [facility] MG Breast - bilateral Diagno sticOrdered By: Nettie Trejo on 01-09-2023 [facility] US BREAST LIMITED UNILATERAL RIGHTon 01-09-2023 US BREAST LIMITED UNILATERAL RIGHT EXAM: MAMMO DIAGNOSTIC WITH ADRIANA BILATERAL, US BREAST LIMITED UNILATERAL RIGHT, 01/09/2023 09:20 AM (accession [id number]), 01/09/2023 09:31 AM (accession [id number]) CLINICAL INDICATIONS: The patient reports right upper [...] Clinical correlation/manageme nt. Recommendation Laterality: Right Normal [facility] HEMOGLOBIN [id number] By: Sa fred Carbajal on 09-27-2022 Average glucose Estimated from glycated hemoglobin (Bld) [Mass/Vol] 105 mg/dL [facility] HbA1c (Bld) [Mass fraction] 5.3 % 4.7 - 5.6 % [facility] HEMOGLOBIN A1Con 09-27-2022 Glucose [Mass/Vol] 105 mg/dL Normal [facility] Comment on above: Performed By: #### A 1CB #### [facility] (DEFAULT) [address] [address] HbA1c (Bld) [Mass fraction] 5.3 % Normal 4.7-5.6 [facility] Comment on above: Performed By: #### A 1CB #### [facility] (DEFAULT) [address] [place] [address] LIPID PANEL WITH REFLEX TO Jennifer MORALESURED LDLon 09-27-2022 Calculated LDL Cholesterol 51 mg/dL Normal 0-99 [facility] Comment on above: Result Comment: [<10 0 mg/dL: Optimal] [100-129 mg/dL: Near Optimal] [130-159 mg/dL: Borderline High] [160-189 mg/dL: High] [>189 mg/dL: Very High] Performed By: #### L IPDR #### [facility] (DEFAULT) [address] [place] [address] Cholesterol [Mass/Vol] 122 mg/dL Normal <200 [facility] Comment on above: Result Comment: [<20 0 mg/dL: Desirable] [200-239 mg/dL: Borderline High] [>239 mg/dL: High] Performed By: #### L IPDR #### [facility] (DEFAULT) [address] [place] [address] Cholesterol in HDL [Mass/Vol] 50 mg/dL Normal >=40 [facility] Comment on above: Result Comment: [<40 mg/dL: Low (High Risk)] [>59 mg/dL: High (Low Risk)] Performed By: #### L IPDR #### [facility] (DEFAULT) [address] [place] [address] Non HDL Cholesterol 72 mg/dL Normal <130 [facility] Comment on above: Performed By: #### L IPDR #### [facility] (DEFAULT) [address] [address] Total Cholesterol/HDL Ratio 2.4 Normal <4.5 [facility] Comment on above: Performed By: #### L IPDR #### [facility] (DEFAULT) [address] [place] [address] Triglyceride [Mass/Vol] 104 mg/dL Normal <150 [facility] Comment on above: Result Comment: [<15 0 mg/dL: Desirable] [150-199 mg/dL: Borderline] [200-499 mg/dL: High] [>500 mg/dL: Very High] Performed By: #### L IPDR #### [facility] (DEFAULT) [address] [place] [address] Cholesterol [Mass/Vol] 122 mg/dL NINF - 200 mg/dL [facility] Comment on above: [<200 mg/dL: Desirab le] [200-239 mg/dL: Borderline High] [>239 mg/dL: High] Cholesterol in HDL [Mass/Vol] 50 mg/dL 40 - PINF mg/dL [facility] Comment on above: [<40 mg/dL: Low (Hig h Risk)] [>59 mg/dL: High (Low Risk)] Cholesterol in HDL [Mass/Vol] 72 mg/dL NINF - 130 mg/dL [facility] Cholesterol in LDL [Mass/Vol] 51 mg/dL 0 - 99 mg/dL [facility] Comment on above: [<100 mg/dL: Optimal ] [100-129 mg/dL: Near Optimal] [130-159 mg/dL: Borderline High] [160-189 mg/dL: High] [>189 mg/dL: Very High] Cholesterol.total/Choles terol in HDL [Mass ratio] 2.4 {ratio} NINF - 4.5 [facility] Interpretation and review of laboratory results Normal [facility] Triglyceride [Mass/Vol] 104 mg/dL [facility] mg/dL [facility] Comment on above: [<150 mg/dL: Desirab le] [150-199 mg/dL: Borderline] [200-499 mg/dL: High] [>500 mg/dL: Very High] [facility] PROLACTINon 09-27-2022 Prolactin [Mass/Vol] 4.4 ng/mL [facility] Comment on above: Reference Range: Females Non: 2.8-29.2 ng/mL : 9.7-208.5 ng/mL Postmenopausal: 1.8-20.3 ng/mL <2 years: 3.3-14.7 ng/mL 2-5 years: 1.0-12.8 ng/mL 6-10 years: 1.2-11.4 ng/mL 11-17 years: 1.4-14.3 ng/mL Males: 2.1-17.7 ng/mL [facility] Prolactin 4.4 ng/mL Normal [facility] Comment on above: Result Comment: Refe maddie Range: Females Non: 2.8-29.2 ng/mL : 9.7-208.5 ng/mL Postmenopausal: 1.8-20.3 ng/mL <2 years: 3.3-14.7 ng/mL 2-5 years: 1.0-12.8 ng/mL 6-10 years: 1.2-11.4 ng/mL 11-17 years: 1.4-14.3 ng/mL Males: 2.1-17.7 ng/mL Performed By: #### P ROL, TSHQR #### [facility] (DEFAULT) [address] [place] [address] TSH W/FT4 REFLEXon Interpretation and review of laboratory results Normal [facility] TSH Qn 1.680 m[IU]/L [facility] TSH 1.680 uIU/mL Normal 0.550-4.780 [facility] Comment on above: Performed By: #### P ROL, TSHQR #### [facility] (DEFAULT) [address] [place] [address] CYTOLOGY-PARTS SALES COUNTERPERSON, 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on 09-05-2022 ---Cytologic Interpretation--- Normal [facility] Comment on above: 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 Result Comment: ? Ne gative for Intraepithelial Lesion or Malignancy ? HPV Results Reported in Attached Report This Pap Test was imaged with the assistance of the [employer] ThinPrep Imaging System and screened by a Wax Blender. Performed By: #### T HINP #### [facility] (DEFAULT) [address] [place] [address] Case Report Normal [facility] Comment on above: 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 Result Comment: Gyne cologic Cytology Report Case: [id number] Authorizing Provider: Faith Starkey MD Collected: 09/05/2022 03:07 PM Ordering Location: Obstetrics and Gynecology Received: 09/05/2022 04:39 PM [facility]patient [facility] First Screen: Tammy Ruffeefe Rescreen: Julietkatie Coby Specimen: Cervical/Endocervical, ThinPrep, Cervical/Endocervical Performed By: #### T HINP #### [facility] (DEFAULT) [address] [address] HPV Reflex? HPV HR with genotyping if NILM, ASCUS, LSIL (30 and older) Normal [facility] Comment on above: 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 Result Comment: For Immediate Release to Patient's [facility]? Yes Performed By: #### T HINP #### [facility] (DEFAULT) [address] [address] LMP 08/05/2022 Normal [facility] Comment on above: 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 Performed By: #### T HINP #### [facility] (DEFAULT) [address] [address] PAP METHOD ThinPrep Normal [facility] Comment on above: 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 Performed By: #### T HINP #### [facility] (DEFAULT) [address] [address] HPV WITH GENOTYPING (WITH VIRGILIO FARRIS)on 09-05-2022 HPV Genotype 16 Negative Normal Negative [facility] Comment on above: 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 HPV DNA detection performed by Real-Time PCR. The assay detects HPV 16, 18, 31, 33, 35, 39, 45, 51, 52, 56, 58, 59, 66, 68.Testing performed at [facility]. Performed By: #### H PVGCO #### [facility] (DEFAULT) [address] [address] HPV Genotype 18 Negative Normal Negative [facility] Comment on above: 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 HPV DNA detection performed by Real-Time PCR. The assay detects HPV 16, 18, 31, 33, 35, 39, 45, 51, 52, 56, 58, 59, 66, 68.Testing performed at [facility]. Performed By: #### H PVGCO #### [facility] (DEFAULT) [address] [address] HPV Other High Risk Types, PCR Negative Normal Negative [facility] Comment on above: Order Comment: Justice peerz'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 HPV DNA detection performed by Real-Time PCR. The assay detects HPV 16, 18, 31, 33, 35, 39, 45, 51, 52, 56, 58, 59, 66, 68.Testing performed at [facility]. Performed By: #### H PVGCO #### [facility] (DEFAULT) [address] [place] [id number] COVID-19, MOLECULARon 2020 SARS-CoV-2 (COVID-19) RNA CONCHITA+probe Ql (Unsp spec) Not detected Normal Not Detected [facility] Comment on above: Result Comment: This test was performed under the FDA's Emergency Use Authorization (EUA). Testing was performed using the Xpert?? Xpress SARS-CoV-2/Flu/RSV plus RT-PCR Ignite100 assay on the GeneXpert Xpress System. This test has not been approved for use in asymptomatic patients and its performance in this patient population has not been evaluated. Negative results do not rule out the presence of SARS-CoV-2/COVID-19. Fact sheets for this EUA can be found at the following links: For Healthcare Providers: https://www.fda.gov/media/487648/download For Patients: https://www.fda.gov/media/821181/download Performed By: #### L [id number] #### [facility] [address] [address] Xiang Chahal M[address]. [id number] ABDOMEN PELVIS WITH IV CO NTRAST [...] of significance including no evidence for appendicitis. [employer] Workstation ID: [id number] Dictated by: DECLAN MESSER on SatSep 15, 2021 12:10:30 PM EST Transcribed by: REKHA WEATHERS on SatSep 15, 2021 12:18:43 PM EST Finalized by: DECLAN MESSER on SatSep 15, 2021 2:13:51 PM EST Normal [facility] Comment on above: Order Comment: Injur y/Trauma or Illness?:Illness/Other How long have you had these symptoms (acute/chronic)?:Acute Reason for exam?:abd pain Type of Exam?:Initial Additional signs and symptoms?: MRCBerny 09-15-2021 MR MRCP EXAMINATION: MRCP HISTORY: ORDERING [...] SatSep 15, 2021 3:56:08 PM EST Normal [facility] Comment on above: Order Comment: Injur y/Trauma [...] The remaining study is within normal limits. [employer] Workstation ID: [id number] Dictated by: JEANA LIND on SatSep 15, 2021 9:29:20 AM EST Transcribed by: REKHA WEATHERS on SatSep 15, 2021 9:33:21 AM EST Finalized by: JEANA LIND on SatSep 15, 2021 9:36:51 AM EST Normal [facility] Comment on above: Order Comment: US Ga llbladder Injury/Trauma or Illness?:Illness/Other How long have you had these symptoms (acute/chronic)?:Acute Reason for exam?:RUQ pain History of cancer?:no Surgeries, chemotherapy, or radiation?:no Type of Exam?:Initial Additional signs and symptoms?:none COVID-19, MOLECULARon 2019 INTERNAL CONTROL (ABBOT ID) Pass Normal [facility] SARS-COV-2 (SPEARS ID) Not Detected Normal Not Detecte d [facility] POC COVID-19 Molecularon Internal Control Pass [facility] Interpretation and review of laboratory results Normal [facility] SARS-CoV-2 Not Detected Not Detected [facility] BMPon 07-29-2019 Anion gap [Moles/Vol] 19 mmol/L 10 - 20 mmol/L [facility] Calcium [Mass/Vol] 9.6 mg/dL 8.4 - 10. 2 mg/dL [facility] Chloride [Moles/Vol] 105 mmol/L 98 - 10 8 mmol/L [facility] Creatinine [Mass/Vol] 0.62 mg/dL 0.4 - 1.1 mg/dL [facility] GFR/1.73 sq M predicted among non-blacks MDRD (S/P/Bld) [Vol rate/Area] The eGFR should be used for monitoring renal function only and not for medication dosing. [facility] GFR/1.73 sq M.predicted CKD-EPI (S/P/Bld) [Vol rate/Area] 122 >=60 mL/min/1.73 m2 [facility] Glucose [Mass/Vol] 104 mg/dL High 65 - 99 mg/dL [facility] HCO3 [Moles/Vol] 22 mmol/L 21 - 32 mmol/L [facility] Interpretation and review of laboratory results Abnormal [facility] Potassium [Moles/Vol] 4.2 mmol/L 3.5 - 5.1 mmol/L [facility] Sodium [Moles/Vol] 142 mmol/L 135 - 145 mmol/L [facility] Urea nitrogen [Mass/Vol] 11 mg/dL 8 - 25 mg/d L [facility] Urea nitrogen/Creatinine [Mass ratio] 17.7 mg/mg [facility] CBC WITH AUTO DIFFERENTIALon 07-29-2019 Basophils (Bld) [#/Vol] 0.03 10*3/uL [facility] Basophils/100 WBC (Bld) 0.3 % [facility] Eosinophils (Bld) [#/Vol] 0.14 10*3/uL [facility] Eosinophils/100 WBC (Bld) 1.2 % [facility] Erythrocyte distribution width (RBC) [Entitic vol] 13.9 % 11.6 - 14.8 % [facility] Hematocrit (Bld) [Volume fraction] 41.0 % 36 - 46 % [facility] Hemoglobin (Bld) [Mass/Vol] 13.0 g/dL 12 - 16 g/dL [facility] Interpretation and review of laboratory results Abnormal [facility] Lymphocytes (Bld) [#/Vol] 3.19 10*3/uL [facility] Lymphocytes/100 WBC (Bld) 28.0 % [facility] MCH (RBC) [Entitic mass] 26.3 pg 26 - 34 pg [facility] MCHC (RBC) [Mass/Vol] 31.7 g/dL 31 - 37 g/dL [facility] MCV (RBC) [Entitic vol] 82.8 fL 80 - 100 fL [facility] Monocytes (Bld) [#/Vol] 0.45 10*3/uL [facility] Monocytes/100 WBC (Bld) 4.0 % [facility] Neutrophils (Bld) [#/Vol] 7.57 10*3/uL High [facility] Neutrophils/100 WBC (Bld) 66.5 % [facility] Nucleated RBC (Bld) [#/Vol] 0.00 10*3/uL [facility] Nucleated RBC/100 WBC (Bld) [Ratio] 0.0 % [facility] Platelet mean volume (Bld) [Entitic vol] 8.9 fL Low 9 - 15.5 fL [facility] Platelets (Bld) [#/Vol] 353 10*3/uL [facility] RBC (Bld) [#/Vol] 4.95 10*6/uL [facility] WBC (Bld) [#/Vol] 11.38 10*3/uL [facility] Hepatic Function Panel (LFT) on 07-29-2019 Albumin [Mass/Vol] 4.3 g/dL 3.2 - 5.2 g/dL [facility] ALP [Catalytic activity/Vol] 83 U/L 40 - 140 U/L [facility] ALT [Catalytic activity/Vol] 19 U/L 0 - 40 U/L [facility] AST [Catalytic activity/Vol] 16 U/L 0 - 45 U/L [facility] Bilirubin [Mass/Vol] mg/dL 0 - 1.3 mg/dL [facility] Bilirubin.conjugated [Mass/Vol] mg/dL 0 - 0.4 mg/dL [facility] Protein [Mass/Vol] 7.6 g/dL 6 - 8 g/dL [facility] Lipaseon 07-29-2019 Lipase [Catalytic activity/Vol] 30 U/L 15 - 65 U/L [facility] Otheron 07-29-2019 Interpretation and review of laboratory results Normal [facility] Interpretation and review of laboratory results Normal [facility] POC Urinalysis Dipstickon Bilirubin Ql (U) Negative Negative [facility] Glucose Ql (U) Negative Normal, Negative mg/dL [facility] Hemoglobin Ql (U) Negative Negative [facility] lth Ketones Ql (U) Negative Negative mg/dL [facility] Leukocyte esterase Test strip Ql (U) Negative Negative [facility] Nitrite Ql (U) Negative Negative [facility] pH (U) 5.0 [pH] [facility] Protein Ql (U) Negative Negative mg/dL [facility] Urobilinogen Qn (U) Negative <2.0, 0. 2, Normal, Negative, 1.0, 2.0, <1.0 mg/dL [facility] POC Urine Pregnancyon 2018 HCG ( test) Ql (U) Negative Negative [facility] Internal Control Pass [facility] US ABDOMEN LIMITED STUDYon 1 1. There is a small 4 mm echogenic focus in the nondependent portion of the gallbladder wall which may reflect a small amount of adherent gallbladder sludge or a small benign cholesterol polyp. No further follow-up is required. 2. Otherwise unremarkable right upper quadrant abdominal ultrasound. [employer] Workstation ID: [id number] [facility] EXAMINATION: US ABDOMEN LIMITED STUDY HISTORY: [...] free fluid in the right upper quadrant. [facility] Interface, Rad In Nora Speechq - 07/29/2019 1:19 PM EDT EXAMINATION: [...] quadrant abdominal ultrasound. [employer] Workstation ID: [id number] [facility] Urinalysison 07-29-2019 Specific gravity (U) [Rel density] 1.005 [facility] BMPon 03-19-2019 Anion gap [Moles/Vol] 17 mmol/L 10 - 20 mmol/L [facility] Calcium [Mass/Vol] 9.9 mg/dL 8.4 - 10. 2 mg/dL [facility] Chloride [Moles/Vol] 104 mmol/L 98 - 10 8 mmol/L [facility] Creatinine [Mass/Vol] 0.60 mg/dL 0.4 - 1.1 mg/dL [facility] GFR/1.73 sq M predicted among non-blacks MDRD (S/P/Bld) [Vol rate/Area] The eGFR should be used for monitoring renal function only and not for medication dosing. [facility] GFR/1.73 sq M.predicted CKD-EPI (S/P/Bld) [Vol rate/Area] 124 >=60 mL/min/1.73 m2 [facility] Glucose [Mass/Vol] 115 mg/dL High 65 - 99 mg/dL [facility] HCO3 [Moles/Vol] 23 mmol/L 21 - 32 mmol/L [facility] Interpretation and review of laboratory results Abnormal [facility] Potassium [Moles/Vol] 3.9 mmol/L 3.5 - 5.1 mmol/L [facility] Sodium [Moles/Vol] 140 mmol/L 135 - 145 mmol/L [facility] Urea nitrogen [Mass/Vol] 9 mg/dL 8 - 25 mg/d L [facility] Urea nitrogen/Creatinine [Mass ratio] 15.0 mg/mg [facility] CBC WITH AUTO DIFFERENTIALon 03-19-2019 Basophils (Bld) [#/Vol] 0.04 10*3/uL [facility] Basophils/100 WBC (Bld) 0.2 % [facility] Eosin[facility] (Bld) [#/Vol] 0.35 10*3/uL [facility] Eosinophils/100 WBC (Bld) 2.1 % [facility] Erythrocyte distribution width (RBC) [Entitic vol] 14.0 % 11.6 - 14.8 % [facility] Hematocrit (Bld) [Volume fraction] 41.7 % 36 - 46 % [facility] Hemoglobin (Bld) [Mass/Vol] 13.4 g/dL 12 - 16 g/dL [facility] Interpretation and review of laboratory results Abnormal [facility] Lymphocytes (Bld) [#/Vol] 5.33 10*3/uL High [facility] Lymphocytes/100 WBC (Bld) 31.6 % [facility] MCH (RBC) [Entitic mass] 26.2 pg 26 - 34 pg [facility] MCHC (RBC) [Mass/Vol] 32.1 g/dL 31 - 37 g/dL [facility] MCV (RBC) [Entitic vol] 81.4 fL 80 - 100 fL [facility] Monocytes (Bld) [#/Vol] 0.93 10*3/uL High [facility] Monocytes/100 WBC (Bld) 5.5 % [facility] Neutrophils (Bld) [#/Vol] 10.22 10*3/uL High [facility] Neutrophils/100 WBC (Bld) 60.6 % [facility] Nucleated RBC (Bld) [#/Vol] 0.00 10*3/uL [facility] Nucleated RBC/100 WBC (Bld) [Ratio] 0.0 % [facility] Platelet mean volume (Bld) [Entitic vol] 8.7 fL Low 9 - 15.5 fL [facility] Platelets (Bld) [#/Vol] 418 10*3/uL High [facility] RBC (Bld) [#/Vol] 5.12 10*6/uL [facility] WBC (Bld) [#/Vol] 16.87 10*3/uL High [facility] D-DIMER, QUANTITATIVEon 03-01 Fibrin D-dimer FEU (PPP) [Mass/Vol] 0.42 0.27 - 0.49 mcg/mL FEU [facility] Interpretation and review of laboratory results Normal [facility] A D-dimer concentration of <0.5 micrograms per milliliter FEU is considered a low probability for pulmonary embolus (PE) and deep venous thrombosis (DVT). Results of this test should always be interpreted in conjunction with the patient's medical history,clinical presentation, and other findings. Clinical diagnosis should not be based on the results of the D-dimer alone. [facility] Hepatic Function Panel (LFT) on 03-19-2019 Albumin [Mass/Vol] 4.4 g/dL 3.2 - 5.2 g/dL [facility] ALP [Catalytic activity/Vol] 109 U/L 40 - 140 U/L [facility] ALT [Catalytic activity/Vol] 17 U/L 0 - 40 U/L [facility] AST [Catalytic activity/Vol] 16 U/L 0 - 45 U/L [facility] Bilirubin [Mass/Vol] mg/dL 0 - 1.3 mg/dL [facility] Bilirubin.conjugated [Mass/Vol] mg/dL 0 - 0.4 mg/dL [facility] Protein [Mass/Vol] 8.0 g/dL 6 - 8 g/dL [facility] Lipaseon 03-19-2019 Lipase [Catalytic activity/Vol] 39 U/L 15 - 65 U/L [facility] Otheron 03-19-2019 Extra Tube Hold for add-ons. [facility] Comment on above: Auto resulted. Interpretation and review of laboratory results Normal [facility] POC Urine Pregnancyon 2018 HCG ( test) Ql (U) Negative Negative [facility] Internal Control Pass [facility] Interpretation and review of laboratory results Normal [facility] Specific gravity (U) [Rel density] 1.005 [facility] TROPONINon 03-19-2019 Troponin T.cardiac [Mass/Vol] ug/L <=14 ng/L [facility] Troponin T.cardiac [Mass/Vol] No biomarker evidence of cardiac injury. [facility] Troponin T.cardiac [Mass/Vol] ug/L <=14 ng/L [facility] Troponin T.cardiac [Mass/Vol] Normal [facility] XR CHEST AP/PA AND LATon Mild perihilar and lingular/bibasilar atelectatic change with no other acute process. [employer] Workstation ID: [id number] [facility] Interface, Rad In [employer] Speechq - 03/19/2019 6:01 AM EDT EXAMINATION: [...] atelectatic change with no other acute process. [employer] Workstation ID: [id number] [facility] EXAMINATION: XR CHEST AP/PA AND LAT [...] unremarkable. There is no acute osseous abnormality. [facility] ECG 12-LEADon 03-18-2019 Laurent Duque MD 03/19/2019 3:41 AM EKG 12-lead Date/Time: 03/18/2019 11:49 PM Performed by: Laurent Duque MD Authorized by: Laurent Duque MD Interpreted by ED attending physician Comparison: not compared with previous ECG BPM: 103 Comments: Rate 103, sinus tachycardia, normal QRS interval, normal axis, no acute ST elevation, interpreted by [facility] Vital Signs Date Time Vital Sign Value Performing Clinician Facility 07-09-2025 11:37-0400 Body temperature 96.6 [degF] Dr. Steffen Eisenberg MD Work Phone: [facility] 07-09-2025 11:37-0400 Diastolic blood pressure 93 mm[Hg] Dr. Steffen Eisenberg MD Work Phone: [facility] 07-09-2025 11:37-0400 Heart rate 79 /min Dr. Steffen Eisenberg MD Work Phone: [facility] 07-09-2025 11:37-0400 Respiratory rate 18 /min Dr. Steffen Eisenberg MD Work Phone: [facility] 07-09-2025 11:37-0400 Systolic blood pressure 121 mm[Hg] Dr. Steffen Eisenberg MD Work Phone: [facility] 06-25-2025 11:15-0400 Body mass index (BMI) [Ratio] 47.5 kg/m2 Dr. Steffen Eisenberg MD Work Phone: [facility] 06-25-2025 11:15-0400 Body temperature 97.5 [degF] Dr. Steffen Eisenberg MD Work Phone: [facility] 06-25-2025 11:15-0400 Diastolic blood pressure 77 mm[Hg] Dr. Steffen Eisenberg MD Work Phone: [facility] 06-25-2025 11:15-0400 Respiratory rate 18 /min Dr. Steffen Eisneberg MD Work Phone: [facility] 06-25-2025 11:15-0400 Systolic blood pressure 139 mm[Hg] Dr. Steffen Eisenberg MD Work Phone: [facility] 06-23-2025 10:19-0400 Body height 157.[address] Steffen Eisenberg MD Work Phone: [facility] 06-23-2025 10:19-0400 Body mass index (BMI) [Ratio] 43 kg/m2 Dr. Steffen Eisenberg MD Work Phone: [facility] 06-23-2025 10:19-0400 Body weight 106.[address] Steffen Eisenberg MD Work Phone: [facility] 06-23-2025 10:19-0400 Diastolic blood pressure 65 mm[Hg] Dr. Steffen Eisenberg MD Work Phone: [facility] 06-23-2025 10:19-0400 Systolic blood pressure 119 mm[Hg] Dr. Steffen Eisenberg MD Work Phone: [facility] 06-18-2025 09:48-0400 Body mass index (BMI) [Ratio] 47.5 kg/m2 Dr. Steffen Eisenberg MD Work Phone: [facility] 06-18-2025 09:48-0400 Body temperature 98 [degF] Dr. Steffen Eisenberg MD Work Phone: [facility] 06-18-2025 09:48-0400 Diastolic blood pressure 104 mm[Hg] Dr. Steffen Eisenberg MD Work Phone: [facility] 06-18-2025 09:48-0400 Heart rate 100 /min Dr. Steffen Eisenberg MD Work Phone: [facility] 06-18-2025 09:48-0400 Respiratory rate 185 /min Dr. Steffen Eisenberg MD Work Phone: [facility] 06-18-2025 09:48-0400 Systolic blood pressure 142 mm[Hg] Dr. Steffen Eisenberg MD Work Phone: [facility] 06-10-2025 08:27-0400 Body height 157.[address] Steffen Eisenberg MD Work Phone: [facility] 06-10-2025 08:27-0400 Body mass index (BMI) [Ratio] 44.4 kg/m2 Dr. Steffen Eisenberg MD Work Phone: [facility] 06-10-2025 08:27-0400 Body weight 110.[address] Steffen Eisenberg MD Work Phone: [facility] 06-10-2025 08:27-0400 Diastolic blood pressure 83 mm[Hg] Dr. Steffen Eisenberg MD Work Phone: [facility] 06-10-2025 08:27-0400 Systolic blood pressure 127 mm[Hg] Dr. Steffen Eisenberg MD Work Phone: [facility] 06-09-2025 08:17-0400 Body mass index (BMI) [Ratio] 47.5 kg/m2 Dr. Steffen Eisenberg MD Work Phone: [facility] 06-09-2025 08:17-0400 Body temperature 98.2 [degF] Dr. Steffen Eisenberg MD Work Phone: [facility] 06-09-2025 08:17-0400 Body weight 118.[address] Steffen Eisenberg MD Work Phone: [facility] 06-09-2025 08:17-0400 Diastolic blood pressure 89 mm[Hg] Dr. Steffen Eisenberg MD Work Phone: [facility] 06-09-2025 08:17-0400 Heart rate 87 /min Dr. Steffen Eisenberg MD Work Phone: [facility] 06-09-2025 08:17-0400 Respiratory rate 14 /min Dr. Steffen Eisenberg MD Work Phone: [facility] 06-09-2025 08:17-0400 Systolic blood pressure 123 mm[Hg] Dr. Steffen Eisenberg MD Work Phone: [facility] 06-05-2025 18:18-0400 Body temperature 98.2 [degF] Dr. Steffen Eisenberg MD Work Phone: [facility] 06-05-2025 18:18-0400 Diastolic blood pressure 70 mm[Hg] Dr. Steffen Eisenberg MD Work Phone: [facility] 06-05-2025 18:18-0400 Heart rate 83 /min Dr. Steffen Eisenberg MD Work Phone: [facility] 06-05-2025 18:18-0400 Respiratory rate 16 /min Dr. Steffen Eisenberg MD Work Phone: [facility] 06-05-2025 18:18-0400 SaO2% (BldA) [Mass fraction] 98 % Dr. Steffen Eisenberg MD Work Phone: [facility] 06-05-2025 18:18-0400 Systolic blood pressure 128 mm[Hg] Dr. Steffen Eisenberg MD Work Phone: [facility] 06-05-2025 14:41-0400 Body height 157.[address] Steffen Eisenberg MD Work Phone: [facility] 05-28-2025 20:23-0400 Body temperature 97.7 [degF] Dr. Steffen Eisenberg MD Work Phone: [facility] 05-28-2025 20:23-0400 Diastolic blood pressure 85 mm[Hg] Dr. Steffen Eisenberg MD Work Phone: [facility] 05-28-2025 20:23-0400 Heart rate 99 /min Dr. Steffen Eisenberg MD Work Phone: [facility] 05-28-2025 20:23-0400 Respiratory rate 16 /min Dr. Steffen Eisenberg MD Work Phone: [facility] 05-28-2025 20:23-0400 SaO2% (BldA) [Mass fraction] 100 % Dr. Steffen Eisenberg MD Work Phone: [facility] 05-28-2025 20:23-0400 Systolic blood pressure 140 mm[Hg] Dr. Steffen Eisenberg MD Work Phone: [facility] 05-27-2025 13:24-0400 Body height 157.[address] Steffen Eisenberg MD Work Phone: [facility] 05-27-2025 13:24-0400 Body weight 117.[address] Steffen Eisenberg MD Work Phone: [facility] 05-27-2025 11:07-0400 Inhaled oxygen flow rate 2 L/min Dr. Steffen Eisenberg MD Work Phone: [facility] 05-27-2025 06:07-0400 Body mass index (BMI) [Ratio] 47.2 kg/m2 Dr. Steffen Eisenberg MD Work Phone: [facility] 05-24-2025 19:00-0400 Diastolic blood pressure 77 mm[Hg] Dr. Steffen Eisenberg MD Work Phone: [facility] 05-24-2025 19:00-0400 Heart rate 116 /min Dr. Steffen Eisenberg MD Work Phone: [facility] 05-24-2025 19:00-0400 SaO2% (BldA) [Mass fraction] 100 % Dr. Steffen Eisenberg MD Work Phone: [facility] 05-24-2025 19:00-0400 Systolic blood pressure 137 mm[Hg] Dr. Steffen Eisenberg MD Work Phone: [facility] 05-24-2025 18:25-0400 Body temperature 98.6 [degF] Dr. Steffen Eisenberg MD Work Phone: [facility] 05-24-2025 18:25-0400 Respiratory rate 20 /min Dr. Steffen Eisenberg MD Work Phone: [facility] 05-24-2025 13:55-0400 Body height 157.[address] Steffen Eisenberg MD Work Phone: [facility] 05-24-2025 13:55-0400 Body mass index (BMI) [Ratio] 47.7 kg/m2 Dr. Steffen Eisenberg MD Work Phone: [facility] 05-24-2025 13:55-0400 Body weight 118.[address] Steffen Eisenberg MD Work Phone: [facility] 05-15-2025 13:15-0400 Body temperature 98.5 [degF] Dr. Steffen Eisenberg MD Work Phone: [facility] 05-15-2025 13:15-0400 Diastolic blood pressure 62 mm[Hg] Dr. Steffen Eisenberg MD Work Phone: [facility] 05-15-2025 13:15-0400 Heart rate 107 /min Dr. Steffen Eisenberg MD Work Phone: [facility] 05-15-2025 13:15-0400 Respiratory rate 16 /min Dr. Steffen Eisenberg MD Work Phone: [facility] 05-15-2025 13:15-0400 SaO2% (BldA) [Mass fraction] 98 % Dr. Steffen Eisenberg MD Work Phone: [facility] 05-15-2025 13:15-0400 Systolic blood pressure 115 mm[Hg] Dr. Steffen Eisenberg MD Work Phone: [facility] 05-12-2025 06:26-0400 Body height 157.[address] Steffen Eisenberg MD Work Phone: [facility] 05-12-2025 06:26-0400 Body mass index (BMI) [Ratio] 48.7 kg/m2 Dr. Steffen Eisenberg MD Work Phone: [facility] 05-12-2025 06:26-0400 Body weight [address] Steffen Eisenberg MD Work Phone: [facility] 05-06-2025 14:10-0400 Body height 157.[address] Steffen Eisenberg MD Work Phone: [facility] 05-06-2025 14:09-0400 Body mass index (BMI) [Ratio] 49.6 kg/m2 Dr. Steffen Eisenberg MD Work Phone: [facility] 05-06-2025 14:09-0400 Body weight [address] Steffen Eisenberg MD Work Phone: [facility] 05-06-2025 14:09-0400 Diastolic blood pressure 84 mm[Hg] Dr. Steffen Eisenberg MD Work Phone: [facility] 05-06-2025 14:09-0400 Systolic blood pressure 125 mm[Hg] Dr. Steffen Eisenberg MD Work Phone: [facility] 04-28-2025 14:05-0400 Body height 157.[address] Steffen Eisenberg MD Work Phone: [facility] 04-28-2025 14:03-0400 Body mass index (BMI) [Ratio] 48.5 kg/m2 Dr. Steffen Eisenberg MD Work Phone: [facility] 04-28-2025 14:03-0400 Body weight 120.[address] Steffen Eisenberg MD Work Phone: [facility] 04-28-2025 14:03-0400 Diastolic blood pressure 86 mm[Hg] Dr. Steffen Eisenberg MD Work Phone: [facility] 04-28-2025 14:03-0400 Systolic blood pressure 123 mm[Hg] Dr. Steffen Eisenberg MD Work Phone: [facility] 04-20-2025 14:13-0400 Body height 157.[address] Steffen Eisenberg MD Work Phone: [facility] 04-20-2025 14:13-0400 Body mass index (BMI) [Ratio] 49 kg/m2 Dr. Steffen Eisenberg MD Work Phone: [facility] 04-20-2025 14:13-0400 Body weight 121.[address] Steffen Eisenberg MD Work Phone: [facility] 04-20-2025 14:13-0400 Diastolic blood pressure 81 mm[Hg] Dr. Steffen Eisenberg MD Work Phone: [facility] 04-20-2025 14:13-0400 Systolic blood pressure 116 mm[Hg] Dr. Steffen Eisenberg MD Work Phone: [facility] 04-19-2025 10:29-0400 Heart rate 115 /min Dr. Steffen Eisenberg MD Work Phone: [facility] 04-19-2025 10:29-0400 SaO2% (BldA) [Mass fraction] 96 % Dr. Steffen Eisenberg MD Work Phone: [facility] 04-19-2025 10:03-0400 Body height 157.[address] Steffen Eisenberg MD Work Phone: [facility] 04-19-2025 10:03-0400 Body mass index (BMI) [Ratio] 49.2 kg/m2 Dr. Steffen Eisenberg MD Work Phone: [facility] 04-19-2025 10:03-0400 Body weight 122.[address] Steffen Eisenberg MD Work Phone: [facility] 04-19-2025 09:57-0400 Body temperature 98.4 [degF] Dr. Steffen Eisenberg MD Work Phone: [facility] 04-19-2025 09:57-0400 Respiratory rate 20 /min Dr. Steffen Eisenberg MD Work Phone: [facility] 04-19-2025 09:56-0400 Diastolic blood pressure 80 mm[Hg] Dr. Steffen Eisenberg MD Work Phone: [facility] 04-19-2025 09:56-0400 Systolic blood pressure 132 mm[Hg] Dr. Steffen Eisenberg MD Work Phone: [facility] 04-07-2025 10:00-0400 Body height 157.[address] Steffen Eisenberg MD Work Phone: [facility] 04-07-2025 10:00-0400 Body mass index (BMI) [Ratio] 49 kg/m2 Dr. Steffen Eisenberg MD Work Phone: [facility] 04-07-2025 10:00-0400 Body weight 121.[address] Steffen Eisenberg MD Work Phone: [facility] 04-07-2025 10:00-0400 Diastolic blood pressure 80 mm[Hg] Dr. Steffen Eisenberg MD Work Phone: [facility] 04-07-2025 10:00-0400 Systolic blood pressure 119 mm[Hg] Dr. Steffen Eisenberg MD Work Phone: [facility] 03-26-2025 14:17-0400 Body height 157.[address] Steffen Eisenberg MD Work Phone: [facility] 03-26-2025 14:15-0400 Body mass index (BMI) [Ratio] 48.9 kg/m2 Dr. Steffen Eisenberg MD Work Phone: [facility] 03-26-2025 14:15-0400 Body weight 121.[address] Steffen Eisenberg MD Work Phone: [facility] 03-26-2025 14:15-0400 Diastolic blood pressure 82 mm[Hg] Dr. Steffen Eisenberg MD Work Phone: [facility] 03-26-2025 14:15-0400 Systolic blood pressure 131 mm[Hg] Dr. Steffen Eisenberg MD Work Phone: [facility] 03-10-2025 14:28-0400 Body height 157.[address] Steffen Eisenberg MD Work Phone: [facility] 03-10-2025 14:24-0400 Body mass index (BMI) [Ratio] 48.5 kg/m2 Dr. Steffen Eisenberg MD Work Phone: [facility] 03-10-2025 14:24-0400 Body weight 120.[address] Steffen Eisenberg MD Work Phone: [facility] 03-10-2025 14:24-0400 Diastolic blood pressure 76 mm[Hg] Dr. Steffen Eisenberg MD Work Phone: [facility] 03-10-2025 14:24-0400 Systolic blood pressure 110 mm[Hg] Dr. Steffen Eisenberg MD Work Phone: [facility] 02-26-2025 08:45-0400 Body height 157.[address] Steffen Eisenberg MD Work Phone: [facility] 02-26-2025 08:45-0400 Body mass index (BMI) [Ratio] 48.3 kg/m2 Dr. Steffen Eisenberg MD Work Phone: [facility] 02-26-2025 08:45-0400 Body weight 119.[address] Steffen Eisenberg MD Work Phone: [facility] 02-26-2025 08:45-0400 Diastolic blood pressure 66 mm[Hg] Dr. Steffen Eisenberg MD Work Phone: [facility] 02-26-2025 08:45-0400 Systolic blood pressure 102 mm[Hg] Dr. Steffen Eisenberg MD Work Phone: [facility] 01-29-2025 10:30-0400 Body mass index (BMI) [Ratio] 47.7 kg/m2 Dr. Steffen Eisenberg MD Work Phone: [facility] 01-29-2025 10:30-0400 Body weight 118.[address] Steffen Eisenberg MD Work Phone: [facility] 01-29-2025 10:30-0400 Diastolic blood pressure 81 mm[Hg] Dr. Steffen Eisenberg MD Work Phone: [facility] 01-29-2025 10:30-0400 Systolic blood pressure 114 mm[Hg] Dr. Steffen Eisenberg MD Work Phone: [facility] 01-01-2025 10:10-0400 Body mass index (BMI) [Ratio] 47.9 kg/m2 Dr. Steffen Eisenberg MD Work Phone: [facility] 01-01-2025 10:10-0400 Body weight 118.[address] Steffen Eisenberg MD Work Phone: [facility] 01-01-2025 10:10-0400 Diastolic blood pressure 82 mm[Hg] Dr. Steffen Eisenberg MD Work Phone: [facility] 01-01-2025 10:10-0400 Systolic blood pressure 125 mm[Hg] Dr. Steffen Eisenberg MD Work Phone: [facility] 12-03-2024 13:32-0500 Body mass index (BMI) [Ratio] 47.9 kg/m2 Dr. Steffen Eisenberg MD Work Phone: [facility] 12-03-2024 13:32-0500 Body weight 119.[address] Steffen Eisenberg MD Work Phone: [facility] 12-03-2024 13:32-0500 Diastolic blood pressure 82 mm[Hg] Dr. Steffen Eisenberg MD Work Phone: [facility] 12-03-2024 13:32-0500 Systolic blood pressure 120 mm[Hg] Dr. Steffen Eisenberg MD Work Phone: [facility] 11-10-2024 22:23-0500 Body temperature 98.2 [degF] Dr. Steffen Eisenberg MD Work Phone: [facility] 11-10-2024 22:23-0500 Diastolic blood pressure 97 mm[Hg] Dr. Steffen Eisenberg MD Work Phone: [facility] 11-10-2024 22:23-0500 Heart rate 115 /min Dr. Steffen Eisenberg MD Work Phone: [facility] 11-10-2024 22:23-0500 Respiratory rate 18 /min Dr. Steffen Eisenberg MD Work Phone: [facility] 11-10-2024 22:23-0500 SaO2% (BldA) [Mass fraction] 99 % Dr. Steffen Eisenberg MD Work Phone: [facility] 11-10-2024 22:23-0500 Systolic blood pressure 139 mm[Hg] Dr. Steffen Eisenberg MD Work Phone: [facility] 11-10-2024 18:31-0500 Body mass index (BMI) [Ratio] 47.4 kg/m2 Dr. Steffen Eisenberg MD Work Phone: [facility] 11-10-2024 18:31-0500 Body weight 117.[address] Steffen Eisenberg MD Work Phone: [facility] 11-05-2024 14:27-0500 Body mass index (BMI) [Ratio] 47.5 kg/m2 Dr. Steffen Eisenberg MD Work Phone: [facility] 11-05-2024 14:27-0500 Body weight 117.[address] Steffen Eisenberg MD Work Phone: [facility] 11-05-2024 14:27-0500 Diastolic blood pressure 89 mm[Hg] Dr. Steffen Eisenberg MD Work Phone: [facility] 11-05-2024 14:27-0500 Systolic blood pressure 125 mm[Hg] Dr. Steffen Eisenberg MD Work Phone: [facility] 01-12-2024 11:02-0400 Body temperature 97.9 [degF] Gina Sahu APRN.LUBRICATION SERVICER Work Phone: [facility] 01-12-2024 11:02-0400 Body weight 120.3 kg Gina Sahu APRN.LUBRICATION SERVICER Work Phone: [facility] 01-12-2024 11:02-0400 Diastolic blood pressure 78 mm[Hg] Gina Sahu APRN.LUBRICATION SERVICER Work Phone: [facility] 01-12-2024 11:02-0400 Heart rate 134 /min Gina Sahu APRN.LUBRICATION SERVICER Work Phone: [facility] 01-12-2024 11:02-0400 Respiratory rate 20 /min Gina Sahu APRN.LUBRICATION SERVICER Work Phone: [facility] 01-12-2024 11:02-0400 SaO2% (BldA) [Mass fraction] 100 % Gina Sahu APRN.LUBRICATION SERVICER Work Phone: [facility] 01-12-2024 11:02-0400 Systolic blood pressure 118 mm[Hg] Gina Sahu APRN.LUBRICATION SERVICER Work Phone: [facility] 11-04-2023 11:53-0500 Body height 157.48 cm [facility] 11-04-2023 11:53-0500 Body mass index (BMI) [Ratio] 48.1 kg/m2 [facility] 11-04-2023 11:53-0500 Body weight 119.4 kg [facility] 11-04-2023 11:53-0500 Diastolic blood pressure 89 mm[Hg] MARTA DEL VALLE [facility] 11-04-2023 11:53-0500 Systolic blood pressure 125 mm[Hg] MARTA DEL VALLE [facility] 09-27-2022 09:42-0500 Body height 158.1 cm Marta Del Valle MD Work Phone: [facility] 09-27-2022 09:42-0500 Body mass index (BMI) [Ratio] 42.84 kg/m2 Marta Del Valle MD Work Phone: [facility] 09-27-2022 09:42-0500 Body weight 107.11 kg Marta Del Valle MD Work Phone: [facility] 09-27-2022 09:42-0500 Diastolic blood pressure 72 mm[Hg] Marta Del Valle MD Work Phone: [facility] 09-27-2022 09:42-0500 Heart rate 113 /min Marta Del Valle MD Work Phone: [facility] 09-27-2022 09:42-0500 SaO2% (BldA) [Mass fraction] 99 % Marta Del Valle MD Work Phone: [facility] 09-27-2022 09:42-0500 Systolic blood pressure 114 mm[Hg] Marta Del Valle MD Work Phone: [facility] 09-05-2022 13:25-0500 Body height 157.5 cm Faith Starkey MD Work Phone: [facility] 09-05-2022 13:25-0500 Body mass index (BMI) [Ratio] 42.43 kg/m2 Faith Starkey MD Work Phone: [facility] 09-05-2022 13:25-0500 Body weight 105.23 kg Faith Starkey MD Work Phone: [facility] 09-05-2022 13:25-0500 Diastolic blood pressure 70 mm[Hg] Faith Starkey MD Work Phone: [facility] 09-05-2022 13:25-0500 Systolic blood pressure 124 mm[Hg] Faith Starkey MD Work Phone: [facility] 05-17-2021 13:53-0400 Body height 157.5 cm Faith Starkey MD Work Phone: [facility] 05-17-2021 13:53-0400 Body mass index (BMI) [Ratio] 44.45 kg/m2 Faith Starkey MD Work Phone: [facility] 05-17-2021 13:53-0400 Body weight 110.22 kg Faith Starkey MD Work Phone: [facility] 05-17-2021 13:53-0400 Diastolic blood pressure 78 mm[Hg] Faith Starkey MD Work Phone: [facility] 05-17-2021 13:53-0400 Systolic blood pressure 118 mm[Hg] Faith Starkey MD Work Phone: [facility] 07-27-2020 10:34-0400 BP Diastolic 88 mm[Hg] Marli Thompson [facility] 07-27-2020 10:34-0400 BP Systolic 132 mm[Hg] Marli Thompson [facility] 07-27-2020 10:32-0400 BMI (Body Mass Index) 41.5 kg/m2 Marli [facility] 07-27-2020 10:32-0400 Body Temperature 99.19 [degF] Marli [facility] 07-27-2020 10:32-0400 Body weight 102.92 kg Marli [facility] 07-27-2020 10:32-0400 Pulse (Heart Rate) 108 /min Marli [facility] 07-27-2020 10:32-0400 Pulse Oximetry 98 % Marli Thompson [facility] 07-27-2020 10:32-0400 Respiratory Rate 16 /min Marli Thompson [facility] 08-19-2019 10:49-0500 BMI (Body Mass Index) 38.89 kg/m2 Janes Gutiérrez [facility] 08-19-2019 10:49-0500 Body Temperature 98.2 [degF] [facility] 08-19-2019 10:49-0500 Body weight 96.44 kg Janes [facility] 08-19-2019 10:49-0500 BP Diastolic 84 mm[Hg] [facility] 08-19-2019 10:49-0500 BP Systolic 135 mm[Hg] [facility] 08-19-2019 10:49-0500 Height 157.5 [facility] 08-19-2019 10:49-0500 Pulse (Heart Rate) 106 /min [facility] 07-29-2019 13:20-0400 Pulse (Heart Rate) 86 /min [facility] 07-29-2019 13:20-0400 Pulse Oximetry 98 % [facility] 07-29-2019 10:27-0400 BMI (Body Mass Index) 39.32 kg/m2 [facility] 07-29-2019 10:27-0400 Body Temperature 97.81 [degF] [facility] 07-29-2019 10:27-0400 Body weight 97.52 kg [facility] 07-29-2019 10:27-0400 BP Diastolic 77 mm[Hg] [facility] 07-29-2019 10:27-0400 BP Systolic 126 mm[Hg] [facility] 07-29-2019 10:27-0400 Height 157.5 cm [facility] 07-29-2019 10:27-0400 Respiratory Rate 18 /min [facility] 03-18-2019 23:29-0400 Body Temperature 98.91 [degF] Laurent [facility] 03-18-2019 23:29-0400 BP Diastolic 89 mm[Hg] Laurent [facility] 03-18-2019 23:29-0400 BP Systolic 149 mm[Hg] Laurent [facility] 03-18-2019 23:29-0400 Pulse (Heart Rate) 105 /min Laurent [facility] 03-18-2019 23:29-0400 Pulse Oximetry 100 % Laurent [facility] 03-18-2019 23:29-0400 Respiratory Rate 16 /min Laurent [facility] 03-18-2019 23:27-0400 BMI (Body Mass Index) 43.46 kg/m2 Laurent [facility] 03-18-2019 23:27-0400 Body weight 104.33 kg Laurent [facility] 03-18-2019 23:27-0400 Height 154.9 cm Laurent [facility] 02-18-2019 10:46-0400 BMI (Body Mass Index) 42.54 kg/m2 Janes Gutiérrez [facility] 02-18-2019 10:46-0400 Body Temperature 98.4 [degF] Janes [facility] 02-18-2019 10:46-0400 Body weight 105.51 kg Janes [facility] 02-18-2019 10:46-0400 BP Diastolic 96 mm[Hg] Janes [facility] 02-18-2019 10:46-0400 BP Systolic 143 mm[Hg] Janes [facility] 02-18-2019 10:46-0400 Height 157.5 cm Janes [facility] 02-18-2019 10:46-0400 Pulse (Heart Rate) 109 /min Janes Gutiérrez [facility] 08-20-2018 08:52-0500 BMI (Body Mass Index) 41.77 kg/m2 Janes Gutiérrez [facility] 08-20-2018 08:52-0500 Body Temperature 98.1 [degF] Janes Gutiérrez [facility] 08-20-2018 08:52-0500 BP Diastolic 86 mm[Hg] Janes Gutiérrez [facility] 08-20-2018 08:52-0500 BP Systolic 120 mm[Hg] Janes [facility] 08-20-2018 08:52-0500 Height 157.5 cm Janes [facility] 08-20-2018 08:52-0500 Pulse (Heart Rate) 118 /min Janes [facility] 08-20-2018 08:52-0500 Weight 103.6 kg Janes Gutiérrez [facility] Encounters Encounter Date Encounter Type Care Provider Facility Start: 08-02-2025 ambulatory Steffen Faina Facility :[facility] Start: 07-27-2025 End: 07-27-2025 ambulatory No Primary Care Physician [place] [place]: 07-09-2025 End: 07-09-[address] Steffen Eisenberg MD Work Phone: -[facility] Start: 07-09-2025 End: 07-09-2025 Dr. Rek[facility] Work Phone: Start: 06-25-2025 End: 06-29-[address] Steffen Eisenberg MD Work Phone: -[facility] Start: 06-25-2025 End: 06-29-2025 Dr. Rekha [facility]ruett [facility] Work Phone: Start: 06-23-2025 End: 06-23-2025 Dr. Edel Bullock DO -[facility] Work Phone: Start: 06-23-2025 End: 06-23-[address] Steffen Eisenberg MD Work Phone: -[facility] Start: 06-18-2025 Dr. Rekha Pruett DO [facility] Work Phone: Start: 06-10-2025 End: 06-10-[address] Apple Lao MD -[facility] Work Phone: Start: 06-10-2025 End: 06-10-2025 Dr. Apple Lao MD -[facility] Work Phone: Start: 06-10-2025 End: 06-10-[address] Steffen Eisenberg MD Work Phone: -[facility] Start: 06-09-2025 Non-patient / Non-visit Keysha monteiro SUR[employer]OR [employer] HELPER-C -[facility] Start: 06-09-2025 Keysha Carr SURVEYOR ROD HELPER-C -[facility] Start: 06-09-2025 Registered Recurring Keysha Carr NP-C [facility] Work Phone: Start: 06-05-2025 End: 06-05-2025 Dr. Misty Conteh DO -Emergency [facility] Work Phone: Start: 06-05-2025 End: 06-05-2025 Emergency department patient visit Dr. Steffen Eisenberg MD Work Phone: -Emergency Department Work Phone: Start: 06-03-2025 Non-patient / Non-visit Dr. Garrett Hernandez MD -[facility] Start: 06-03-2025 Dr. Garrett Hernandez MD [facility] Start: 06-03-[address] Steffen peraza MD Work Phone: -[facility] Start: 06-01-2025 End: 06-01-[address] Steffen Eisenbreg MD Work Phone: -[facility] Start: 06-01-[address] Edel Bullock DO [facility] Work Phone: Start: 06-01-2025 End: 06-01-2025 Dr. Edel Bullock DO [facility] Work Phone: Start: 06-01-2025 End: 06-01-2025 ambulatory Edel Bullock Facility:[facility] Start: 05-28-2025 Non-patient / Non-visit Dr. Garrett Hernandez MD -[facility] Start: 05-28-2025 [facility] Start: 05-28-2025 Non-patient / Non-visit Dr. Mickey Bullock DO [facility] Start: 05-28-2025 Dr. Edel Diehl DO [facility] Start: 05-27-2025 Non-patient / [facility] Start: 05-27-2025 Dr. Garrett Cook [facility] Start: 05-27-2025 Non-patient / Non-visit Dr. Mickey Bullock [facility] Start: 05-27-2025 Dr. Edel Diehl DO [facility] Start: 05-26-2025 ambulatory Steffen Eisenberg Facility :[facility] Start: 05-26-2025 Non-patient / Non-visit Dr. Mickey Bullock [facility] Start: 05-26-2025 Dr. Edel Diehl [facility] Start: 05-25-[facility] Start: 05-25-2025 Non-patient / Non-visit Dr. Mickey Bullock [facility] Start: 05-25-2025 Dr. Edel Diehl [facility] Start: 05-24-2025 Non-patient / Non-visit Dr. Mickey Bullock [facility] Start: 05-24-2025 End: 05-28-2025 Dr. Edel Bullock DO [facility] Work Phone: Start: 05-24-2025 End: 05-28-2025 Evaluation and management of inpatient Dr. Edel Bullock DO [facility] Work Phone: Start: 05-24-2025 [facility] Start: 05-15-2025 Non-patient / Non-visit Mariana Liu ins [facility] Start: 05-15-2025 Mariana Jonas [facility] Start: 05-14-2025 Non-patient / Non-visit Mariana Liu ins [facility] Start: 05-14-2025 Mariana Jonas [facility] Start: 05-13-2025 Non-patient / Non-visit Dr. Elena Lao MD [facility] Start: 05-13-2025 Dr. Apple Lao MD [facility] Start: 05-12-2025 Non-patient / Non-visit Dr. Mickey Bullock DO [facility] Start: 05-12-2025 Dr. Edel Diehl DO [facility] Start: 05-12-2025 ambulatory Edel [facility] Start: 05-12-2025 End: 05-15-2025 Evaluation and management of inpatient Dr. Edel Bullock DO [facility] Work Phone: Start: 05-12-2025 End: 05-15-2025 [facility] Start: 05-10-2025 End: 05-10-20[facility] Start: 05-06-2025 End: 05-06-[address] Edel Bullock DO [facility] Work Phone: Start: 05-06-2025 End: 05-06-2025 Dr. Edel Bullock DO [facility] Work Phone: Start: 05-06-2025 End: 05-06-[address] Steffen Eisenberg MD Work Phone: [facility] Start: 05-06-2025 End: 05-06-2025 ambulatory EDEL DAMICO [facility] Start: 05-03-2025 End: 05-03-2025 ambulatory SAAD BRADLEY [facility] Start: 04-29-2025 End: 04-29-2025 [facility] Start: 04-28-2025 End: 04-28-[address] Steffen Eisenberg MD Work Phone: -[facility] Start: 04-28-2025 End: 04-28-[address] Edel [facility] Work Phone: Start: 04-28-2025 End: 04-28-2025 Dr. Edel Bullock DO -Laboratory Specimen Work Phone: Start: 04-28-2025 End: 04-28-[address] Edel Bullock DO -[facility] Work Phone: Start: 04-28-2025 End: 04-28-2025 Dr. Edel Bullock DO -[facility] Work Phone: Start: 04-28-2025 End: 04-28-[address] Steffen Eisenberg MD Work Phone: -[facility] Start: 04-28-2025 End: 04-28-2025 ambulatory Edel Bullock Facility:[facility] Start: 04-26-2025 End: 04-26-2025 [facility] Start: 04-22-2025 End: 04-22-[address] Steffen Eisenberg MD Work Phone: [facility] Start: 04-22-2025 End: 04-22-[address] Edel Bullock DO -[facility] Work Phone: Start: 04-22-2025 End: 04-22-2025 Dr. Edel Bullock DO -[facility] Work Phone: Start: 04-22-2025 End: 04-22-2025 ambulatory Edel Bullock Facility:[facility] Start: 04-20-2025 End: 04-20-[address] Apple aLo MD -[facility] Work Phone: Start: 04-20-2025 End: 04-20-2025 Dr. Apple Lao MD -[facility] Work Phone: Start: 04-20-2025 End: 04-20-[address] Steffen Eisenberg MD Work Phone: [facility] Start: 04-19-2025 ambulatory Kiley Cristobal [place] Start: 04-19-2025 Non-patient / Non-visit Kiley Whaley ms [facility] Start: 04-19-2025 Kiley Jain CN -[facility] Start: 04-19-2025 End: 04-19-2025 Patient encounter procedure Kiley SEGURA -[facility] Work Phone: Start: 04-19-2025 End: 04-19-2025 Kiley Cristobal CN -[facility] Work Phone: Start: 04-19-2025 End: 04-19-[address] Steffen Eisenberg MD Work Phone: -[facility] Start: 04-15-2025 End: 04-15-[address] Steffen Eisenberg MD Work Phone: -Ultrasound [facility] Start: 04-15-2025 End: 04-15-[address] Edel Bullock DO -Ultrasound [facility] Work Phone: Start: 04-15-2025 End: 04-15-2025 Dr. Edel Bullock DO -Ultrasound [facility] Work Phone: Start: 04-15-2025 End: 04-15-2025 ambulatory Edel Bullock Facility:[facility] Start: 04-12-2025 End: 04-12-2025 ambulatory NO PRIMARY CARE [facility] Start: 04-08-2025 End: 04-08-2025 ambulatory NO PRIMARY CARE [facility] Start: 04-07-2025 End: 04-07-[address] Steffen Eisenberg MD Work Phone: -Lab [facility] Start: 04-07-2025 End: 04-07-[address] Edel Bullock DO [facility] Start: 04-07-2025 End: 04-07-2025 Dr. Edel Bullock DO [facility] Start: 04-07-2025 End: 04-07-[address] Edel Bullock DO [facility] Work Phone: Start: 04-07-2025 End: 04-07-2025 Dr. Edel Bullock DO [facility] Work Phone: Start: 04-07-2025 End: 04-07-[address] Steffen Eisenberg MD Work Phone: [facility] Start: 04-07-2025 End: 04-07-2025 ambulatory Edel Bullock Facility:[facility] Start: 03-26-2025 End: 03-26-[address] Edel Bullock DO [facility] Work Phone: Start: 03-26-2025 End: 03-26-2025 Dr. Edel Bullock DO [facility] Work Phone: Start: 03-26-2025 End: 03-26-[address] Steffen Eisenberg MD Work Phone: [facility] Start: 03-10-2025 End: 03-10-[address] Steffen Eisenberg MD Work Phone: [facility] Work Phone: Start: 03-10-2025 End: 03-10-[address] Edel Bullock DO -[facility] Work Phone: Start: 03-10-2025 End: 03-10-2025 Dr. Edel Bullock DO -[facility] Work Phone: Start: 03-10-2025 End: 03-10-[address] Edel Bullock DO -[facility] Work Phone: Start: 03-10-2025 End: 03-10-2025 Dr. Edel Bullock DO -[facility] Work Phone: Start: 03-10-2025 End: 03-10-[address] Steffen Eisenberg MD Work Phone: [facility] Work Phone: Start: 03-10-2025 End: 03-10-2025 ambulatory Edel Bullock Facility:[facility] Start: 03-05-2025 End: 03-05-[address] Steffen Eisenberg MD Work Phone: [facility] Work Phone: Start: 03-05-2025 End: 03-05-2025 Patient encounter procedure Kiley Jain CNM -Laboratory Work Phone: Start: 03-05-2025 End: 03-05-2025 Kiley Jain CNM -Laboratory Work Phone: Start: 03-05-2025 End: 03-05-2025 ambulatory Steffen Eisenberg Facility:[facility] Start: 02-26-2025 End: 02-26-[address] Apple Lao MD -[facility] Work Phone: Start: 02-26-2025 End: 02-26-2025 Dr. Apple Lao MD -[facility] Work Phone: Start: 02-26-2025 End: 02-26-[address] Steffen Eisenberg MD Work Phone: [facility] Work Phone: Start: 02-26-2025 End: 02-26-2025 ambulatory Apple Lao Facility:[facility] Start: 02-23-2025 End: 02-23-2025 ambulatory OSMANI Stallings [facility] Start: 01-29-2025 End: 01-29-[address] Edel Bullock DO -[facility] Work Phone: Start: 01-29-2025 End: 01-29-2025 ambulatory Steffen Faina Facility:[facility] Start: 01-28-2025 End: 01-28-2025 ambulatory OSMANI Stallings [facility] Start: 01-01-2025 End: 01-01-[address] Apple Lao MD -[facility] Work Phone: Start: 01-01-2025 End: 01-01-2025 ambulatory Steffen Otego Facility:[facility] Start: 12-28-2024 End: 12-28-2024 ambulatory MD ZAIDI [facility] Start: 12-03-2024 End: 12-03-[address] Edel Bullock DO -[facility] Work Phone: Start: 12-03-2024 End: 12-03-2024 ambulatory Steffen Otego Facility:[facility] Start: 11-10-2024 End: 11-10-2024 Emergency department patient visit Dr. Ld Fermin MD -Emergency Department Work Phone: Start: 11-05-2024 Encounter for genera l adult medical examination without abnormal findings Steffennicol Eisenberg [facility] Start: 11-05-2024 End: 11-05-[address] Edel Bullock DO -[facility] Work Phone: Start: 11-05-2024 End: 11-05-2024 ambulatory Steffen Faina [place] [place] Start: 11-03-2024 End: 11-03-2024 ambulatory Facility:[facility] Start: 11-03-2024 End: 11-03-2024 Telemedicine consultation with patient Demarcus Rosalesreece WRIGHT Work Phone: Telemedicine Comment on above: Viral URI with cough (Primary Dx) Start: 11-03-2024 End: 11-04-2024 ambulatory Steffen Faina Facility:[facility] Start: 10-23-2024 End: 10-23-2024 ambulatory Steffen Otego Facility:[facility] Start: 10-15-2024 End: 10-15-2024 ambulatory Steffen Otego Facility:[facility] Start: 10-09-2024 End: 10-09-2024 ambulatory Steffen Faina Facility:[facility] Start: 10-09-2024 End: 10-09-2024 ambulatory Steffen Otego Facility:[facility] Start: 10-02-2024 ambulatory Steffen Faina Facility :[facility] Start: 10-02-2024 End: 10-02-2024 Subsequent hospital visit by physician Tucker Jimenez 2 [facility] Comment on above: Encounter for pregna ncy test, result positive ([facility]-HCC) Start: 10-02-2024 End: 10-02-2024 ambulatory [facility] Start: 09-25-2024 End: 09-25-2024 Subsequent hospital visit by physician Tucker Jimenez 2 [facility] Comment on above: Encounter for pregna ncy test, result positive ([facility]) Start: 09-25-2024 End: 09-25-2024 ambulatory [facility] Start: 09-15-2024 End: 09-15-2024 ambulatory [facility] Start: 09-11-2024 End: 09-11-2024 ambulatory [facility] Start: 09-09-2024 End: 09-09-2024 ambulatory [facility] Start: 09-04-2024 End: 09-04-2024 ambulatory [facility] Start: 08-25-2024 End: 08-25-2024 ambulatory [facility] Start: 08-21-2024 End: 08-21-2024 Subsequent hospital visit by physician Tucker Jimenez 1 [facility] Comment on above: Encounter for assist ed reproductive fertility procedure cycle Start: 08-21-2024 End: 08-21-2024 ambulatory [facility] Start: 08-14-2024 End: 08-14-2024 Subsequent hospital visit by physician Tucker Ultrasound 2 [facility] Comment on above: Encounter for assist ed reproductive fertility procedure cycle Start: 08-14-2024 End: 08-14-2024 ambulatory [facility] Start: 08-04-2024 End: 08-04-2024 ambulatory No Primary Care Physician Facility:[facility] Start: 07-29-2024 End: 07-29-2024 Refill Marta Del Valle MD Work Phone: [facility] [place] Start: 06-24-2024 End: 06-24-2024 Subsequent hospital visit by physician Tucker Jimenez 2 [facility] Comment on above: Encounter for assist ed reproductive fertility procedure cycle Start: 06-24-2024 End: 06-24-2024 ambulatory [facility] Start: 06-22-2024 End: 06-22-2024 Subsequent hospital visit by physician Tucker Jimenez 2 [facility] Comment on above: Encounter for assist ed reproductive fertility procedure cycle Start: 06-22-2024 End: 06-22-2024 ambulatory [facility] Start: 06-19-2024 End: 06-19-2024 Subsequent hospital visit by physician Tucker Ultrasound 2 [facility] Comment on above: Encounter for assist ed reproductive fertility procedure cycle Start: 06-19-2024 End: 06-19-2024 ambulatory [facility] Start: 06-15-2024 End: 06-15-2024 Subsequent hospital visit by physician Tucker Ultrasound 2 [facility] Comment on above: Encounter for assist ed reproductive fertility procedure cycle Start: 06-15-2024 End: 06-15-2024 ambulatory [facility] Start: 01-12-2024 End: 01-12-2024 ambulatory Facility:[facility] Start: 01-12-2024 End: 01-12-2024 Patient encounter procedure Gina Sahu APRNJaiLUBRICATION SERVICER Work Phone: [facility] Comment on above: URI, acute (Primary Dx); Acute otitis media, right; Acute cough Start: 12-09-2023 Non-patient / Non-visit MARTA STEPHEN [facility] Start: 12-09-2023 End: 12-09-2023 [facility] Start: 12-09-2023 End: 12-09-2023 Patient encounter procedure MARTA DEL VALLE [facility] Work Phone: Start: 11-04-2023 End: 11-04-2023 Patient encounter procedure MARTA DEL VALLE [facility] Work Phone: Start: 05-01-2023 Patient encounter status Marta Del Valle MD Work Phone: [facility] Start: 05-01-2023 ambulatory MARTA DEL VALLE Facili ty:[facility] Start: 04-03-2023 ambulatory MARTA DEL VALLE Facili ty:[facility] Start: 01-09-2023 ambulatory MARTA DEL VALLE Facili ty:[facility] Start: 01-09-2023 End: 01-09-2023 Subsequent hospital visit by physician Lawrence Young MD Work Phone: [facility] [place] Comment on above: Arrived Start: 12-19-2022 ambulatory SELF SELF Facility:[facility] [place] [place] Start: 09-27-2022 ambulatory SELF SELF Facility:[facility] [place] [place] Start: 09-27-2022 Encounter for genera l adult medical examination without abnormal findings MARTA DEL VALLE Facility:[facility] Start: 09-27-2022 End: 09-27-2022 Patient encounter status Marta Del Valle MD Work Phone: [facility] [place] Start: 09-27-2022 End: 09-27-2022 Periodic preventive med est patient 18-39 yrs Marta Del Valle MD Work Phone: [facility] [place] Comment on above: Well adult exam (Cristy hector Dx); Prolonged ; Need for influenza vaccination; MELINA (generalized anxiety disorder); Gastroesophageal reflux disease without esophagitis; Recurrent major depressive disorder, in full remission Start: 09-05-2022 ambulatory SELF SELF Facility:[facility] [place] [place] Start: 09-05-2022 Encounter for gynecological examination (general) (routine) without abnormal findings FAITH STARKEY Facility:[facility] Start: 09-05-2022 End: 09-05-2022 Patient encounter procedure Faith Starkey MD Work Phone: [facility] [place] Start: 09-05-2022 End: 09-05-2022 Periodic preventive med est patient 18-39 yrs Faith Starkey MD Work Phone: [facility] [place] Comment on above: Well woman exam with routine gynecological exam (Primary Dx) Start: 08-10-2022 ambulatory MARTA DEL VALLE Facili ty:[facility] Start: 10-03-2021 End: 10-07-2021 ambulatory [facility] Start: 09-27-2021 Patient encounter status Radha Starkey MD Work Phone: [facility] Start: 09-15-2021 End: 09-16-2021 ambulatory [facility] Start: 05-17-2021 End: 05-17-2021 Subsequent care visit Faith Starkey MD Work Phone: [facility] [place] Comment on above: Supervision of mirna nair first , antepartum (Primary Dx) Start: 08-23-2020 End: 08-23-2020 Patient encounter procedure WILL PRABHAKAR [facility] Start: 08-23-2020 End: 08-23-2020 Office outpatient new 30 minutes Will Prabhakar Work Phone: [facility] Comment on above: Acne vulgaris (Prima ry Dx); Dermal nevus of abdominal wall Start: 07-27-2020 End: 07-27-2020 Patient encounter procedure MARTA DEL VALLE [facility] Start: 07-27-2020 End: 07-27-2020 Office outpatient new 30 minutes Marli Jay Work Phone: [facility] Comment on above: Close Exposure to Co vid-19 Virus (Primary Dx); Generalized body aches; Diarrhea, unspecified type Start: 08-19-2019 End: 08-19-2019 Office outpatient visit 15 minutes Janes Gutiérrez Work Phone: [facility] Comment on above: Leukocytosis, unspec ified type (Primary Dx) Start: 07-29-2019 End: 07-29-2019 Emergency department patient visit Robert Danyel Peterson Work Phone: [facility] Comment on above: Epigastric pain (Cristy hector Dx) Start: 05-09-2019 End: 05-09-2019 Refill Marta Del Valle Work Phone: [facility] General Internal Medicine [employer] Start: 03-19-2019 Follow-up encounter Marta queen Work Phone: [facility] General Internal Medicine [employer] Comment on above: RE: Follow up from E R Visit Start: 03-19-2019 End: 03-19-2019 Patient encounter procedure Marta Del Valle Work Phone: [facility] Start: 03-18-2019 End: 03-19-2019 Emergency department patient visit Laurent Duque Work Phone: [facility] Comment on above: Abdominal pain, unsp ecified abdominal location (Primary Dx); Chest pain, unspecified type; Leukocytosis, unspecified type Start: 03-18-2019 End: 03-18-2019 Patient encounter procedure Marta Del Valle Work Phone: [facility] Start: 02-18-2019 End: 01-22-2020 Office outpatient visit 15 minutes Janes Gutiérrez Work Phone: [facility] Comment on above: Leukocytosis, unspec ified type (Primary Dx) Start: 08-20-2018 End: 08-20-2018 Office outpatient visit 15 minutes Janes Gutiérrez Work Phone: [facility] Comment on above: Leukocytosis, unspec ified type (Primary Dx) Start: 12-09-2013 End: 12-27-2020 Patient encounter status Faith Starkey MD Work Phone: [facility] Start: 12-03-2013 End: 03-03-2014 ambulatory [facility] Procedures Date Procedure Procedure Detail Performing Clinician Start: 06-25-[address] Steffen Eisenberg MD Work Phone: Start: 06-25-2025 Gram stain microscopy Haylie Eisenberg MD Work Phone: Start: 06-25-2025 End: 06-25-2025 Microbial culture, routine Dr. Steffen chao MD Work Phone: Start: 06-09-[address] Steffen Eisenberg MD Work Phone: Start: 06-09-2025 Gram stain microscopy Haylie Eiesnberg MD Work Phone: Start: 06-09-2025 End: 06-09-2025 Microbial culture, routine Dr. Steffen chao MD Work Phone: Start: 06-05-2025 Blood count smear [facility] w/mnl difrntl wbc count Dr. Steffen Eisenberg MD Work Phone: Start: 06-05-[address] Steffen Eisenberg MD Work Phone: Start: 06-05-2025 Mean corpuscular hem oglobin concentration determination Dr. Steffen Eisenberg MD Work Phone: Start: 06-05-[address] Chema WOLFE Work Phone: Start: 06-05-2025 Nucleated red blood cell count procedure Dr. Steffen Eisenberg MD Work Phone: Start: 06-05-2025 Platelet mean volume determination Dr. Steffen Eisenberg MD Work Phone: Start: 06-01-2025 Blood count smear mc rscp w/mnl difrntl wbc count Dr. Steffen Eisenberg MD Work Phone: Start: 06-01-2025 Mean corpuscular hem oglobin concentration determination Dr. Steffen Eisenberg MD Work Phone: Start: 06-01-[address] Chema WOLFE Work Phone: Start: 06-01-2025 Nucleated red blood cell count procedure Dr. Steffen Eisenberg MD Work Phone: Start: 06-01-2025 Platelet mean volume determination Dr. Steffen Eisenberg MD Work Phone: Start: 05-28-2025 Blood count smear mc rscp w/mnl difrntl wbc count Dr. Steffen Eisenberg MD Work Phone: Start: 05-28-[address] Steffen Eisenberg MD Work Phone: Start: 05-28-2025 Mean corpuscular hem oglobin concentration determination Dr. Steffen Eisenberg MD Work Phone: Start: 05-28-[address] Chema WOLFE Work Phone: Start: 05-28-2025 Nucleated red blood cell count procedure Dr. Steffen Eisenberg MD Work Phone: Start: 05-28-2025 Platelet mean volume determination Dr. Steffen Eisenberg MD Work Phone: Start: 05-27-[address] Steffen Eisenberg MD Work Phone: Start: 05-27-[address] Steffen Eisenberg MD Work Phone: Start: 05-27-2025 Gram stain microscopy D tapan Eisenberg MD Work Phone: Start: 05-27-2025 Microbial culture, routine Dr. Steffen Eisenberg MD Work Phone: Start: 05-27-2025 End: 05-27-[address] Steffen Eisenberg MD Work Phone: Start: 05-27-2025 Incision and drainag e of abscess Dr. Steffen Eisenberg MD Work Phone: Start: 05-27-2025 Calculation of inter national normalized ratio Dr. Steffen Eisenberg MD Work Phone: Start: 05-26-[address] Chema WOLFE Work Phone: Start: 05-26-[address] Steffen Eisenberg MD Work Phone: Start: 05-26-2025 CT of abdomen and pe lvis without contrast Dr. Steffen Eisenberg MD Work Phone: Start: 05-26-[address] Angela Eisenberg MD Work Phone: Start: 05-26-2025 Identification proce dure for living organism Dr. Steffen Eisenberg MD Work Phone: Start: 05-25-2025 Biopsy/Inj or Needle Placement Dr. Steffen Eisenberg MD Work Phone: Start: 05-25-2025 Dr. Steffen Eisenberg MD Work Phone: Start: 05-25-[address] Steffen Eisenberg MD Work Phone: Start: 05-25-2025 Gram stain microscopy D tapan Eisenberg MD Work Phone: Start: 05-25-2025 Microbial culture, b anurga fluid Dr. Steffen Eisenberg MD Work Phone: Start: 05-24-2025 Urine microscopy: red cells Dr. Steffen Eisenberg MD Work Phone: Start: [...] Angela Eisenberg MD Work Phone: Start: 05-13-2025 Blood count smear mc rscp w/mnl difrntl wbc count Dr. Steffen Eisenberg MD Work Phone: Start: 05-13-2025 Calculation of inter national normalized ratio Dr. Steffen Eisenberg MD Work Phone: Start: 05-13-2025 Fibrinogen assay, quantitative Dr. Steffen Eisenberg MD Work Phone: Start: 05-13-2025 Mean corpuscular hem oglobin concentration determination Dr. Steffen Eisenberg MD Work Phone: Start: 05-13-[address] Chema WOLFE Work Phone: Start: 05-13-2025 Nucleated red blood cell count procedure Dr. Steffen Eisenberg MD Work Phone: Start: 05-13-2025 Platelet mean volume determination Dr. Steffen Eisenberg MD Work Phone: Start: 05-12-2025 Hemoglobin F measure ment using Kleihauer-Betke method Dr. Steffen Eisenberg MD Work Phone: Comment on above: Reva Crawford y Reference: Negative POSITIVE AB* Feto- maternal hemorrhage ( RBCs): 10 mL. TESTING PERFORMED AT [facility]. ORIGINAL REPORT ON FILE IN LAB CONTAINS ADDITIONAL TEST SITE INFORMATION. _ Start: 05-12-2025 Benzodiazepine measu rement, urine Dr. Steffen Eisenberg MD Work Phone: Start: 05-12-2025 Cocaine measurement, urine Dr. Steffen Eisenberg MD Work Phone: Start: 05-12-2025 Methadone measurement, urine Dr. Steffen Eisenberg MD Work Phone: Start: 05-12-[address] Steffen Eisenberg MD Work Phone: Start: 05-12-[address] Steffen Eisenberg MD Work Phone: Start: [...] Work Phone: Comment on above: Performed at: [address] [id number] Director: Huan Kuhn PhD, Phone: [phone] Start: 03-10-2025 Gram stain microscopy D tapan Eisenberg MD Work Phone: Start: 03-10-2025 End: 03-10-[address] Steffen martinez MD Work Phone: Start: 02-26-2025 Blood count smear mc rscp w/mnl difrntl wbc count Dr. Steffen Eisenberg MD Work Phone: Start: 02-26-2025 Mean corpuscular hem oglobin concentration determination Dr. Steffen Eisenberg MD Work Phone: Start: 02-26-2025 Measurement of gluco se 2 hours after glucose challenge for glucose tolerance test Dr. Steffen Eisenberg MD Work Phone: Start: 02-26-2025 Nucleated red blood cell count procedure Dr. Steffen iEsenberg MD Work Phone: Start: 02-26-2025 Platelet mean volume determination Dr. Steffen Eisenberg MD Work Phone: Start: 02-26-2025 Serologic test [...] Phone: Start: 03-19-2019 LIGHT GREEN TOP Laurent Aden emily Neto Work Phone: Start: 03-19-2019 Lipase [Enzymatic [...] 2) Zoste r Vaccines (1 of 2) [facility] Start: 05-03-2031 DTaP/Tdap/Td Vaccine s (3 - Td or Tdap) DTaP/Tdap/Td Vaccines (3 - Td or Tdap) [facility] Start: 05-03-2031 Tetanus vaccination TETANUS [facility] Start: 05-03-2031 Urine microalbumin profile DTaP,Tdap,Td Vaccine (3 - Td or Tdap) [facility] Start: 08-27-2027 Tetanus vaccination [facility] Start: 09-05-2025 Screening for malign ant neoplasm of cervix [facility] Start: 06-25-2025 Anaerobic microbial culture [facility] Start: 06-25-2025 Gram stain microscopy [facility] Start: 06-25-2025 Microbial culture, routine [facility] Start: 06-25-2025 Source specific culture [facility] Start: 06-25-2025 End: 06-29-2025 [facility] Work Phone: Start: 06-09-2025 Anaerobic Culture Anaerobic Culture [facility] Start: 06-09-2025 Microbial culture, routine Wound Culture [facility] Start: 06-09-2025 Source specific culture [facility] Start: 05-28-2025 Patient discharge [facility] Start: 05-28-2025 Referral to service [facility] Start: 05-28-2025 Application, wound VAC [facility] Start: 05-27-2025 Anaerobic Culture Anaerobic Culture [facility] Start: 05-27-2025 Fungal Culture Fungal Culture [facility] Start: 05-27-2025 Fungal Smear Fungal Smear [facility] Start: 05-27-2025 Microbial culture, routine Wound Culture [facility] Start: 05-27-2025 [facility] Start: 05-27-2025 Consultation for treatment [facility] Start: 05-27-2025 Mycology culture [facility] Start: 05-27-2025 Source specific culture [facility] Start: 05-26-2025 Consultation for treatment [facility] Start: 05-26-2025 Consultation [facility] Start: 05-26-2025 Application of intermittent pneumatic compression device [facility] Start: 05-26-2025 [facility] Start: 05-26-2025 Blood culture Blood Culture [facility] Start: 05-25-2025 Anaerobic microbial culture Anaerobic Culture [facility] Start: 05-25-2025 Microbial culture, b anurag fluid [facility] Start: 05-25-2025 Catheterization of vein [facility] Start: 05-25-[address] [facility] Start: 05-25-2025 Vital signs measurements [facility] Start: 05-25-2025 Prothrombin time [facility] Start: 05-24-2025 Following clinical pathway protocol [facility] Start: 05-24-2025 End: 05-24-[address] [facility] Start: 05-24-2025 Admission procedure [facility] Start: 05-24-2025 Biopsy/Inj or Needle Placement Biopsy/Inj or Needle Placement [facility] Start: 05-24-2025 Hospital admission, emergency, from emergency room, medical nature [facility] Start: 05-24-2025 [facility] Start: 05-24-2025 Bacteria identified in Blood by Culture Blood Culture [facility] Start: 05-24-2025 Blood culture Blood Culture [facility] Start: 05-15-2025 Patient discharge [facility] Start: 05-13-2025 Application of abdom inal corset [facility] Start: 05-13-2025 Administration of bl ood product [facility] Start: 05-13-2025 Consultation [facility] Start: 05-12-2025 End: 05-13-[address] [facility] Start: 05-12-2025 Administration of bl ood product [facility] Start: 05-12-2025 Administration of medication [facility] Start: 05-12-2025 Ambulation therapy management [facility] Start: 05-12-2025 Application of device [facility] Start: 05-12-2025 Application of intermittent pneumatic compression device [facility] Start: 05-12-2025 Assessment of risk o f venous thromboembolism [facility] Start: 05-12-2025 Catheterization of vein [facility] Start: 05-12-2025 Deep breathing and coughing exercises [facility] Start: 05-12-2025 Exercises [facility] Start: 05-12-2025 Measuring intake and output [facility] Start: 05-12-2025 Notification of physician [facility] Start: 05-12-[address] [facility] Start: 05-12-2025 Provision of activit y privileges [facility] Start: 05-12-2025 Skin care [facility] Start: 05-12-2025 Vital signs measurements [facility] Start: 05-12-2025 Wound care [facility] Start: 05-12-2025 Application of abdom inal corset [facility] Start: 05-12-2025 section [facility] Start: 05-12-2025 Admission procedure [facility] Start: 04-19-[address] [facility] Start: 04-19-2025 Obstetric monitoring [facility] Start: 04-19-2025 [facility] Start: 04-19-2025 Vital signs measurements [facility] Start: 04-19-2025 Ultrasonography for biophysical profile without non-stress testing OB Biophysical Prof W/O NST [facility] Start: 04-07-2025 Comprehensive metabo lic 2000 panel - Serum or Plasma [facility] Start: 04-07-2025 Procedure [facility] Start: 03-10-2025 Source specific culture Genital Cult ure [facility] Start: 03-10-2025 Source specific culture [facility] Start: 02-26-2025 CBC W Auto Different ial panel - Blood [facility] Start: 02-26-2025 Measurement of gluco se 2 hours after glucose challenge for glucose tolerance test [facility] Start: 02-26-2025 Serologic test for syphilis [facility] Start: 02-26-2025 [facility] Start: 11-10-2024 End: 11-10-[address] [facility] Start: 10-02-2024 End: 10-02-2024 Patient encounter procedure 10/02/2024 9:15 AM EST Appointment [address] [phone] [facility] Start: 08-25-2024 End: 08-25-2024 Patient encounter procedure 08/25/2024 8:30 AM EST Appointment [address] [place] [phone] [facility] Start: 08-21-2024 End: 08-21-2024 Patient encounter procedure 08/21/2024 7:45 AM EST Appointment [address] [phone] [facility] Start: 06-24-2024 End: 06-24-2024 Patient encounter procedure 06/24/2024 7:30 AM EDT Appointment [address] [phone] [facility] Start: 06-22-2024 End: 06-22-2024 Patient encounter procedure 06/22/2024 7:45 AM EDT Appointment [address] [phone] [facility] Start: 06-19-2024 End: 06-19-2024 Patient encounter procedure 06/19/2024 7:45 AM EDT Appointment [address] [phone] [facility] Start: 05-31-2024 COVID-19 Vaccine ( season) COVID-19 Vaccine ( season) [facility] Start: 05-31-2024 COVID-19 VACCINE ( season) COVID-19 VACCINE ( season) [facility] Start: 05-31-2024 COVID-19 Vaccine ( season) COVID-19 Vaccine ( season) [facility] Start: 05-31-2024 Influenza vaccination C [facility] Start: 05-01-2024 PREVENTATIVE HEALTH VISIT PREV ENTATIVE HEALTH VISIT [facility] Start: 09-30-2023 Behavioral Health Screening Behavioral Health Screening [facility] Start: 09-27-2023 End: 09-27-2023 Patient encounter procedure 09/27/2023 Office Visit [employer] TESTING AND [place] [address] [place], [place] [phone] [facility]s [facility] [place] Start: 09-27-2023 PREVENTATIVE HEALTH VISIT PREV ENTATIVE HEALTH VISIT [facility] Start: 09-05-2023 PREVENTATIVE HEALTH VISIT PREV ENTATIVE HEALTH VISIT [facility] Start: 05-31-2023 Covid-19 Vaccine () Covid-19 Vaccine () [facility] Start: 05-01-2023 End: 05-01-2023 Patient encounter procedure 05/01/2023 Office Visit General Marta Thakur MD [address] [place] [address], [place] [phone] [facility] Start: 09-27-2022 End: 09-27-2022 Patient encounter procedure 09/27/2022 Office Visit Marta Black MD [address] [place] [address], [place] [phone] [facility] Start: 09-02-2022 Microscopic observat ion [Identifier] in Cervix by Cyto stain PAP SMEAR [facility] Start: 09-02-2022 Screening for malign ant neoplasm of cervix PAP SMEAR [facility] Start: 05-31-2022 Influenza vaccination INFLUENZA VACC INE (#1) [facility] Start: 09-28-2021 PREVENTATIVE HEALTH VISIT PREV ENTATIVE HEALTH VISIT [facility] Start: 09-27-2021 End: 09-27-2021 Patient encounter procedure 09/27/2021 Office Visit Marta Black MD [address] [place] [phone] Primary Care Outpatient [facility] Start: 08-29-2021 End: 08-29-2021 Office Visit 08/29/2021 Office Visit Dermatology Srinivas, Will Garcia MD [address] [place] [address] [phone] [facility] Start: 06-21-2021 End: 06-21-2021 Follow-up encounter 06/21/2021 Follow Up Visit [employer]ING AND REPAIR TECHNICIAN Faith Starkey MD [address] [phone] Obstetrics, Gynecology and Midwifery [facility] [place] Start: 06-07-2021 End: 06-07-2021 Follow-up encounter 06/07/2021 Follow Up Visit Maternal Medicine [facility] [place] Start: 05-31-2021 Influenza vaccination INFLUENZA VACC INE (#1) [facility] Start: 05-31-2021 End: 05-31-2021 Follow-up encounter 05/31/2021 Follow Up Visit [employer] TESTING AND REPAIR TECHNICIAN Faith Starkey MD [address] [phone] Obstetrics, Gynecology and Midwifery [facility] [place] Start: 05-22-2021 End: 05-22-2021 ambulatory 05/22/2021 Rehab Services Visit Sports Medicine [place] [address] [place] [phone] Tere Cross, PT [address] [place] [address] [facility] [place] Start: 04-01-2021 COVID-19 VACCINE (3 - Booster for Pfizer series) COVID-19 VACCINE (3 - Booster for Pfizer series) [facility] Start: 03-29-2021 Influenza vaccinatio n given Sequential Influenza Vaccine (#1) [facility] Comment on above: Postponed from 05/31 (Patient Refused) Start: 08-23-2020 End: 08-23-2020 Office Visit 08/23/2020 Office Visit Dermatology SrinivasWill MD [address] [place] [address] [phone] [facility] Start: 2019 Screening for malign ant neoplasm of cervix HPV Testing [facility] Start: 09-02-2019 End: 09-02-2019 Office Visit 09/02/2019 Office Visit EMISS[employer] TESTING AND [place] [address] [place] [address] [address] [place] [address] EMISSIONS TESTING AND REPAIR TECHNICIAN [facility] Start: 08-19-2019 End: 08-19-2019 Office Visit 08/19/2019 Office Visit Oncology Janes Gutiérrez MD [address] [address] [phone] [facility] Start: 05-31-2019 Influenza vaccination INFLUENZA VACC INE (#1) [facility] Start: 05-31-2019 Influenza vaccinatio n given [facility] Start: 05-08-2019 Microscopic observat ion Cyto stain Nom (Cvx) PAP SMEAR [facility] Start: 05-08-2019 Screening for malign ant neoplasm of cervix PAP SMEAR [facility] Start: 02-18-2019 End: 02-18-2019 Ambulatory 02/18/2019 Office Visit Oncology Janes Gutiérrez MD [address] [address] [phone] [facility] Start: 02-17-2019 End: 08-21-2019 Complete blood count with white cell differential, manual CBC and Differential Routine Leukocytosis, Unspecified Type Expected: 02/17/2019, Expires: 08/21/2019 [facility] Comment on above: Expected: 02/17/2019 , Expires: 08/21/2019 Start: 05-31-2018 Influenza vaccination SEQUENTI AL INFLUENZA VACCINE (#1) [facility] Start: 01-16-2016 Screening for malign ant neoplasm of cervix Pap Testing [facility] Start: 01-15-2014 Screening for malign ant neoplasm of cervix Cervical Cancer Screening [facility] Start: 2010 Screening for malign ant neoplasm of cervix HPV/Cotest [facility] Start: 2008 Hepatitis B vaccination HEP B VACCINE (1 of 3 - 19+ 3-dose series) [facility] Start: 2008 Hepatitis B Vaccine (1 of 3 - 19+ 3-dose series) Hepatitis B Vaccine (1 of 3 - 19+ 3-dose series) [facility] Start: 2008 Hepatitis B Vaccines (1 of 3 - 19+ 3-dose series) Hepatitis B Vaccines (1 of 3 - 19+ 3-dose series) [facility] Start: 2007 Anxiety Screening Anxiety Screening [facility] Start: 2007 Depression Screening Depression Scre ening [facility] Start: 2007 Hepatitis C antibody , confirmatory test Hepatitis C Screening [facility] Start: 2007 Hepatitis C screening Hepatitis C Sc manish [facility] Start: 2007 HIV screening HIV Screening [facility] Start: 2004 HIV screening HIV Screening [facility] Start: 2002 Varicella vaccination Varicell a Vaccines (1 of 2 - 13+ 2-dose series) [facility] Start: 2001 Adolescent depressio n screening assessment Depression Screening (PHQ9) [facility] Start: 1992 History and physical examination, annual for health maintenance Wellness Visit [facility] Start: 1990 MMR Vaccines (1 of 1 - Standard series) MMR Vaccines (1 of 1 - Standard series) [facility] Start: 1989 HIV screening HIV Screening [facility] Start: 1989 Lipid panel Lipid Panel [facility] Start: 1989 Screening for malign ant neoplasm of cervix PAP SMEAR [facility] Start: 1989 Yearly Adult Physical Yearly Adult P hysical [facility] Alanine aminotransfe rase [Enzymatic activity/volume] in Serum or Plasma [facility] Alanine aminotransfe rase [Enzymatic activity/volume] in Serum or Plasma [facility] Albumin [Mass/volume ] in Serum or Plasma [facility] Albumin [Mass/volume ] in Serum or Plasma [facility] Alkaline phosphatase [Enzymatic activity/volume] in Serum or Plasma [facility] Alkaline phosphatase [Enzymatic activity/volume] in Serum or Plasma [facility] Anion gap in Serum o r Plasma [facility] Anion gap in Serum o r Plasma [facility] Bacteria identified in Unspecified specimen by Anaerobe culture [facility] Bacteria identified in Unspecified specimen by Anaerobe culture [facility] Bilirubin, total measurement [facility] Bilirubin, total measurement [facility] BUN/Creatinine ratio [facility] BUN/Creatinine ratio [facility] Calcium [Mass/volume ] in Serum or Plasma [facility] Calcium [Mass/volume ] in Serum or Plasma [facility] Carbon dioxide, tota l [Moles/volume] in Central venous blood [facility] Carbon dioxide, tota l [Moles/volume] in Central venous blood [facility] Creatinine [Mass/vol ume] in Serum or Plasma [facility] Creatinine [Mass/vol ume] in Serum or Plasma [facility] Cytology Cervical or vaginal smear or scraping study [employer] COUNTERPERSON, 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 Cytology Routine Well woman exam with routine gynecological exam 09/05/2022 3:07 PM [facility] Erythrocyte mean corpuscular volume determination [facility] Erythrocyte mean corpuscular volume determination [facility] Fungus identified in Unspecified specimen by Culture [facility] Fungus identified in Unspecified specimen by Fungus stain [facility] Glucose [Mass/volume ] in Serum or Plasma [facility] Glucose [Mass/volume ] in Serum or Plasma [facility] Hematocrit [Volume Fraction] of Blood [facility] Hematocrit [Volume Fraction] of Blood [facility] Hemoglobin [Mass/vol ume] in Blood [facility] Hemoglobin [Mass/vol ume] in Blood [facility] INR in Blood by Coagulation assay [facility] Lactic acid measurement [facility] Leukocytes [#/volume ] in Blood [facility] Leukocytes [#/volume ] in Blood [facility] Mean corpuscular hemoglobin concentration determination [facility] Mean corpuscular hemoglobin concentration determination [facility] Mean corpuscular hemoglobin determination [facility] Mean corpuscular hemoglobin determination [facility] Measurement of renal function [facility] Measurement of renal function [facility] Neutrophil count [facility] Neutrophil count [facility] Neutrophil percent differential count [facility] Neutrophil percent differential count [facility] Patient Education [facility] Work Phone: Patient referral [facility] Work Phone: Platelets [#/volume] in Blood [facility] Platelets [#/volume] in Blood [facility] Potassium measurement [facility] Potassium measurement [facility] Red blood cell count [facility] Red blood cell count [facility] Red cell distributio n width determination [facility] Red cell distributio n width determination [facility] End: 06-19-2024 GERRY US Pelvis Limited Follicles - Follicle Studies Performed [facility] Work Phone: Comment on above: Once for 1 Occurrenc es starting 06/19/2024 until 06/19/2024 End: 06-22-2024 GERRY US Pelvis Limited Follicles - Follicle Studies Performed [facility] Work Phone: Comment on above: Once for 1 Occurrenc es starting 06/22/2024 until 06/22/2024 End: 06-24-2024 GERRY US Pelvis Limited Follicles - Follicle Studies Performed [facility] Work Phone: Comment on above: Once for 1 Occurrenc es starting 06/24/2024 until 06/24/2024 Serum chloride measurement [facility] Serum chloride measurement [facility] Sodium measurement [facility] Sodium measurement [facility] Streptococcus agalac tiae [Presence] in Unspecified specimen by Organism specific culture [facility] Total protein measurement [facility] Total protein measurement [facility] Urea nitrogen [Mass/volume] in Serum or Plasma [facility] Urea nitrogen [Mass/volume] in Serum or Plasma [facility] End: 08-14-2024 US Pelvis transvaginal [facility] Work Phone: Comment on above: Once for 1 Occurrenc es starting 08/14/2024 until 08/14/2024 End: 08-21-2024 US Pelvis transvaginal [facility] Work Phone: Comment on above: Once for 1 Occurrenc es starting 08/21/2024 until 08/21/2024 End: 06-19-2024 US Pelvis transvaginal [facility] Work Phone: Comment on above: Once for 1 Occurrenc es starting 06/19/2024 until 06/19/2024 End: 06-22-2024 US Pelvis transvaginal [facility] Service Area Work Phone: Comment on above: Once for 1 Occurrenc es starting 06/22/2024 until 06/22/2024 End: 06-24-2024 US Pelvis transvaginal [facility] Service Area Work Phone: Comment on above: Once for 1 Occurrenc es starting 06/24/2024 until 06/24/2024 [facility] Immunizations Immunization Date Immunization Notes Care Provider [facility] 03-10-2025 tetanus toxoid, redu mason diphtheria toxoid, and acellular pertussis vaccine, adsorbed Dr. Steffen Eisenberg MD Work Phone: [facility] 09-27-2022 influenza, injectabl e, quadrivalent, preservative free Marta Del Valle MD Work Phone: [facility] 09-27-2022 influenza quad vacci ne 0.5 ML Suspension Prefilled Syringe Marta Del Valle MD Work Phone: [facility] 09-27-2022 influenza virus vacc ine, unspecified formulation Gina Sahu APRN.CNP Work Phone: [facility] 06-21-2021 influenza, injectabl e, quadrivalent, preservative free Faith Starkey MD Work Phone: [facility] 06-21-2021 influenza virus vacc ine, unspecified formulation Faith Starkey MD Work Phone: [facility] 05-03-2021 tetanus toxoid, redu mason diphtheria toxoid, and acellular pertussis vaccine, adsorbed Faith Starkey MD Work Phone: [facility] 02-04-2021 Covid (Pfizer) Dr. Steffen chao MD Work Phone: [facility] 01-14-2021 Covid (Pfizer) Dr. Steffen chao MD Work Phone: [facility] 09-07-2020 Influenza, injectabl e, Madin Erlinda Canine Kidney, preservative free, quadrivalent Dr. Steffen Eisenberg MD Work Phone: [facility] 07-23-2019 influenza, injectabl e, quadrivalent, preservative free Faith Starkey MD Work Phone: [facility] 07-23-2019 influenza virus vacc ine, unspecified formulation Faith Starkey MD Work Phone: [facility] 07-31-2018 influenza, injectabl e, quadrivalent, contains preservative [facility] 07-31-2018 influenza, injectabl e, quadrivalent, preservative free Dr. Steffen Eisenberg MD Work Phone: [facility] 07-31-2018 influenza virus vacc ine, unspecified formulation [facility] 08-27-2017 tetanus toxoid, redu mason diphtheria toxoid, and acellular pertussis vaccine, adsorbed [facility] 11-15-2016 Human Papillomavirus 9-valent vaccine [facility] 06-18-2016 Human Papillomavirus 9-valent vaccine [facility] 05-08-2016 Human Papillomavirus 9-valent vaccine [facility] 09-20-2015 influenza virus vacc ine, whole virus [facility] 09-20-2015 influenza, injectabl e, quadrivalent, preservative free Dr. Steffen Eisenberg MD Work Phone: [facility] 08-18-2014 influenza virus vacc ine, whole virus [facility] 08-18-2014 influenza, injectabl e, quadrivalent, preservative free Dr. Steffen Eisenberg MD Work Phone: [facility] 08-30-2013 influenza virus vacc ine, unspecified formulation Marta [facility] Payers Date Payer Category Payer [employer] Blue [employer] Managed Care [facility] [id number] 2024 Unknown [id number] 2024 Self-pay 2023 Managed Care (Private) [facility] [id number] 2022 Unknown [id number] 2022 Unknown [id number] 2021 Private Health Insurance [id number] .[id number]. [id number] 2021 Unknown [id number] 2021 Unknown [id number] 2017 Unknown [id number] 1.2.840.389258.1.13.172.2. 7.3.622419.315 2017 Unknown [id number] 2017 Unknown [id number] 1.2.840.010416.1.13.385.2. 7.3.919235.315 2014 Unknown [id number] 2003 Unknown [id number]. 1.13.159.2. 7.3.840427.315 2003 Unknown [id number] 1989 Unknown [id number] 2.16.840.1.060853.3.579.2. 903 1989 Unknown [id number] 2.16.840.1.043848.3.579.2. 903 1989 Unknown [id number] 2.16.840.1.213736.3.579.2. 902 1989 Unknown [id number] 2.16.840.1.788793.3.579.2. 900 1989 Unknown [id number] 2.16.840.1.986283.3.579.2. 900 1989 Unknown [id number] 2.16.840.1.848601.3.579.2. 594 1989 Unknown [id number] 2.16.840.1.506657.3.579.2. 594 1989 Unknown [id number] 2.16.840.1.540523.3.579.2. 594 1989 Unknown [id number] 2.16.840.1.273393.3.579.2. 594 1989 Unknown [id number] 2.16.840.1.354949.3.579.2. 594 1989 Unknown [id number] 2.16.840.1.177159.3.579.2. 594 1989 Unknown [id number] 2.16.840.1.684539.3.579.2. 594 1989 Unknown [id number] 2.16.840.1.355570.3.579.2. 594 1989 Unknown [id number] 2.16.840.1.168449.3.579.2. 594 1989 Unknown [id number] 2.16.840.1.499478.3.579.2. 594 1989 Unknown [id number] 2.16.840.1.518096.3.579.2. 594 1989 Unknown [id number] 2.16.840.1.930743.3.579.2. 1242 1989 Unknown [id number] 2.16.840.1.305041.3.579.2. 1243 1989 Unknown [id number] 2.16840.1.104463.3.579.2. 1242 1989 Unknown [id number] 2.16.840.1.275401.3.579.2. 124 1989 Unknown [id number] 2.16.840.1.891872.3.579.2. 1242 1989 Unknown [id number] 2.16.840.1.914158.3.579.2. 1242 1989 Unknown [id number] 2.16.840.1.540794.3.579.2. 124 1989 Unknown [id number] 2.16.840.1.464363.3.579.2. 1243 1989 Unknown [id number] 2.16.840.1.034093.3.579.2. 1244 1989 Unknown [id number] 2.16.840.1.769773.3.579.2. 1244 1989 Unknown [id number] 2.16.840.1.592114.3.579.2. 1244 1989 Unknown [id number] 2.16.840.1.587208.3.579.2. 1244 1989 Unknown [id number] 2.16.840.1.330900.3.579.2. 1244 1989 Unknown [id number] 2.16.840.1.855632.3.579.2. 1244 1989 Unknown [id number] 2.16.840.1.511950.3.579.2. 1244 1989 Unknown [id number] 2.16.840.1.914799.3.579.2. 1244 1989 Unknown [id number] 2.16.840.1.458263.3.579.2. 1244 1989 Unknown [id number] 2.16.840.1.766512.3.579.2. 1244 1989 Unknown [id number] 2.16.840.1.605151.3.579.2. 1244 1989 Unknown [id number] 2.16.840.1.393706.3.579.2. 1244 1989 Unknown [id number] 2.16.840.1.709979.3.579.2. 1244 1989 Unknown [id number] 2.16.840.1.980855.3.579.2. 1989 Unknown [id number] 2.16.840.1.687952.3.579.2. 1989 Unknown [id number] 2.16.840.1.444744.3.579.2. 479 1989 Unknown [id number] 2.16.840.1.263792.3.579.2. 479 1989 Unknown [id number] 2.16.840.1.163898.3.579.2. 479 1989 Unknown [id number] 2.840.1.933652.3.579.2. 479 1989 Unknown [id number] 2.840.1.287054.3.579.2. 479 1989 Unknown [id number] 2.840.1.030446.3.579.2. 479 1989 Unknown [id number] 2.840.1.803835.3.579.2. 479 1989 Unknown [id number] 2.840.1.152912.3.579.2. 479 Unknown [id number] 2.840.1.077661.3.579.2. 462 Unknown [id number] 2.840.1.404584.3.579.2. 462 Unknown [id number] 2.840.1.508916.3.579.2. 462 Unknown [id number] 2.840.1.234031.3.579.2. 462 Unknown [id number] 2.840.1.165294.3.579.2. 462 Unknown [id number] 2.840.1.682579.3.579.2. 462 Unknown [id number] 2.840.1.375043.3.579.2. 462 Unknown [id number] 2.840.1.306454.3.579.2. 462 Unknown [id number] 2.840.1.568367.3.579.2. 462 Unknown [id number] 2.16.840.1.860014.3.579.2. 462 Unknown [id number] 2.16.840.1.238114.3.579.2. 462 Unknown [id number] 2.16.840.1.481464.3.579.2. 462 Unknown [id number] 2.16.840.1.965861.3.579.2. 462 Unknown [id number] 2.16.840.1.271619.3.579.2. 462 Unknown [id number] 2.16.840.1.440602.3.579.2. 462 Unknown [id number] 2.16.840.1.521508.3.579.2. 462 Unknown [id number] 2.840.1.546828.3.579.2. 462 Unknown [id number] 2.16840.1.501601.3.579.2. 462 Unknown [id number] 2..840.1.311712.3.579.2. 462 Unknown [id number] 2.16.840.1.128597.3.579.2. 462 Unknown [id number] 2.16.840.1.175761.3.579.2. 462 Unknown [id number] 2.16.840.1.052228.3.579.2. 462 Unknown [id number] 2.16.840.1.162390.3.579.2. 462 Unknown [id number] 2.16.840.1.827948.3.579.2. 462 Unknown [id number] 2.16.840.1.516104.3.579.2. 462 Unknown [id number] 2.16.840.1.156335.3.579.2. 462 Unknown [id number] 2.16.840.1.490292.3.579.2. 462 Unknown [id number] 2.16.840.1.657695.3.579.2. 462 Unknown [id number] 2.16.840.1.862953.3.579.2. 462 Unknown [id number] 2.16.840.1.609504.3.579.2. 462 Unknown [id number] 2.16.840.1.946387.3.579.2. 462 Unknown [id number] 2.16.840.1.078063.3.579.2. 462 Unknown [id number] 2.16.840.1.514223.3.579.2. 462 Unknown [id number] 2.16.840.1.779240.3.579.2. 462 Unknown [id number] 2.16.840.1.366544.3.579.2. 462 Unknown [id number] 2.16.840.1.388959.3.579.2. 462 Unknown [id number] 2.16840.1.621806.3.579.2. 462 Unknown [id number] 2.16840.1.478066.3.579.2. 462 Unknown [id number] 2.16.840.1.429991.3.579.2. 462 Unknown [id number] 2.16.840.1.731583.3.579.2. 462 Unknown [id number] 2.16.840.1.384722.3.579.2. 462 Unknown [id number] 2.16.840.1.773453.3.579.2. 462 Unknown [id number] 2.16.840.1.246207.3.579.2. 462 Unknown [id number] 2.16.840.1.566924.3.579.2. 462 Unknown [id number] 2.16.840.1.726038.3.579.2. 462 Unknown [id number] 2.16.840.1.523897.3.579.2. 462 Unknown [id number] 2.16.840.1.060972.3.579.2. 462 Unknown [id number] 2.16.840.1.416376.3.579.2. 462 Unknown [id number] 2.16.840.1.625387.3.579.2. 462 Unknown [id number] 2.16.840.1.738406.3.579.2. 462 Unknown [id number] 2.16.840.1.157145.3.579.2. 462 Unknown [id number] 2.16.840.1.181174.3.579.2. 462 Social History Date Type Detail Facility Start: 08-20-2018 End: 06-05-2025 Tobacco smoking status MNIS Never smoker [facility] Start: 1990 Sex Assigned At Not on file [facility] Start: 07-31-2018 End: 06-09-2025 Tobacco smoking status [facility] Former smoker [facility] Start: 10-01-2009 End: 10-01-2010 History of tobacco use Current smoker [facility] Start: 10-01-2009 End: 10-01-2010 History of tobacco use Cigarette Smoker [facility] Start: 07-31-2018 End: 01-12-2024 Cigarettes smoked current (pack per day) - Reported [facility] Start: 12-09-2013 Alcohol Comment 1-2 times per week, up to 2 glasses of wine at a time [facility] Start: 07-29-2019 End: 01-12-2024 Alcohol intake Current drinker of alcohol (finding) [facility] Start: 02-20-2012 End: 08-23-2020 Tobacco use and exposure Never used [facility] Start: 06-05-2024 End: 10-02-2024 Exposure to SARS-CoV-2 (event) Not sure [facility] Exposure to SARS-CoV -2 (event) Yes [facility] Start: 07-31-2018 End: 01-12-2024 Alcohol intake Yes [facility] Start: 05-03-2021 End: 05-01-2023 Alcohol intake Ex-drinker (finding) [facility] Start: 12-09-2013 Alcohol Comment 1-2 times per week, up to 2 glasses of wine at a time [facility] Start: 10-21-2020 [facility] Start: 08-26-2022 End: 09-27-2022 Exposure to SARS-CoV-2 (event) Unable to assess [facility] Start: 11-04-2023 Tobacco smoking stat us NHIS Unknown if ever smoked [facility] Start: 1990 Sex Assigned At Female [facility] Start: 02-20-2012 Alcohol Comment occassional [facility] Depression Score 10 [facility] Gender identity Identifies as fe male gender (finding) [facility] Goals Date Patient Goal Desired Activity /State [...] Facility 05-28-2025 Functional status Ambulates;Up ad randi [facility] Work Phone: 05-12-2025 Functional status Bedrest;Post Op [facility] Work Phone: Mental Status Date Assessment Result Facility 05-28-2025 Cognitive function Awake;Alert;A ppropriate;Follo ws [facility] Work Phone: 05-27-2025 Cognitive function Voice/Name [facility] Work Phone: 05-24-2025 Cognitive function Level Of Cons ciousness Awake;Alert;Appropriate;Follo ws Commands [facility] Work Phone: 11-10-2024 Cognitive function Voice/Name [facility] Work Phone: Clinical Notes 05-17-2021 to 07-02-2025 Note Date & Type Note Facility 07-02-2025 Progress note Note Date/Time July 02, 2025 2:43pm [facility] [address] [place] [address] Progress Note - Wound Care 07/02/25 1424 MR#: [id number] Acct: [id number] Name: BARBY CABALLERO Rep #:[id number] : 1990 34 From: Rekha Pruett PCP: Dr. Steffen Eisenberg MD Status:REG RCR Location: History of Present Illness Date of Service: 07/02/25 Chief Complaint: Surgical abdominal wound s/p abscess drainage History of Wound: Gunjan is a pleasant 34-year-old white female that had a on May 12, 2025. The wound became infected and she developed an abscess which was drained by Dr. Hernandez via re-opening the incision on 05/27/25. A wound vac was placed to help heal the surgical incision prior to discharge on 05/28/25. She was treated with IV antibiotics initially and discharged on Bactrim DS. She did develop a yeast infection of the skin surrounding the ulcer and was started on Fluconazole on 06/05/25. She was seen at the wound center for follow up on 06/09/25 by Keysha Carr CNP and a wound culture was completed which showed Morganella morganii, Staph epidermidis, Corynebacterium, and E. faecalis in very rare amounts as well as anaerobic bacteria. She was started on Flagyl for treatment of the anaerobic bacteria. Shehas been packing the wound with Dakins wet to dry dressings to give her skin a chance to heal from the yeast infection and has been tolerating this treatment well. She denies any fever, chills, increased drainage, erythema or odor. Subjective Subjective Gunjan has tolerated wound vac and there is improvement in her abdominal ulcer. She completed Flagyl and wound cultures done 06/25/25 showed additional anaerobicbacteria and persistent E. faecalis. She was started on Augmentin yesterday. Shedenies increased drainage or pain or odor. Objective Data Objective Data Vital Signs: Vital Signs Temp Pulse Resp BP 97.5 F L 75 18 127/91 H 07/02/25 10:53 07/02/25 10:53 07/02/25 10:53 07/02/25 10:53 Physical Exam Const alert, oriented x3 and no apparent distress General Appearance: cooperative and comfortable HEENT normocephalic and head/scalp atraumatic Resp normal respiratory effort Effort and Inspection: able to speak in complete sentences Cardio regular rate and regular rhythm Skin Wounds: wounds noted Wound Narrative: measurements as in clinical panel, pink and healthy appearing surgical wound of mid-abdomen with granulation tissue throughout, left abdomen superior to wound there is an area of dense tissue which is likely resolving inflammation and scarring from seroma/abscess Psych mental status grossly normal, thought process normal, cooperative and affect normal Debridement Note Debridement Note Wound debrided: mid abdomen Laterality: Not Applicable Type of Debridement: Excisional debridement Anesthesia Used: 4% Lidocaine Solution and 5% Lidocaine Gel Depth: Down to and including healthy tissue and in the subcutaneous layer Percentage of wound debrided: 100 Instrument Used: 3mm curette Tissue Removed: Yellow slough, devitalized tissue Severity: Fat Layer Exposed Amount of bleeding with debridement: Mild Bleeding Controlled with: Compression and gauze Patient tolerated procedure: Patient tolerated procedure well Post-Debridement Measurements and Additional Note: Post-Debridement Measurements/Treatment - Nurse 1 - General Ulcer Assessment Start: 07/02/25 10:53 Freq: Status: Active Protocol: RAHEEM Activity Type Activity Date Activity User E-sign Co-sign Detail Recorded Client Recorded Date Recorded By Document 07/02/25 10:53 [id number] 07/02/25 10:57 RB 07/02/25 10:53 - Today's Visit Information Type of service Follow-up Visit (Physician/LUBRICATION SERVICER ) Arrival Mode Ambulatory Transfer Assistance None Patient Identification Verified (Name & Yes ) Patient Requires Transmission-Based No Precautions Vital Signs Temperature (97.8 F-99.1 F) 97.5 F L Temperature Source Temporal Pulse Rate (60-100) 75 Pulse Location Monitor Respiratory Rate (12-18) 18 Respiratory rate source Observation Blood Pressure (90/60-120/80) 127/91 H Blood Pressure Mean (mm Hg) 103 Source Monitor Position Semi-Fowlers Blood Pressure Location Left Arm History Since Last Visit- (Skip if this is Patient's initial visit) Have you changed medications since your No last visit? Any new allergies or adverse reactions No Had a fall/change in ADL's that may No increase risk of falls Signs or symptoms of abuse and/or No neglect since last visit Have you been in the hospital since your No last visit? Has dressing in place as prescribed Yes Has compression in place as prescribed No Has offloadiing in place as prescribed No Experienced any changes in pain level or No management Pain Scale: 0-10 Numeric Is Patient Pain Free? Yes - Nurse 1 - General Ulcer Measurement Start: 07/02/25 10:53 Freq: Status: Active Protocol: Activity Type Activity Date Activity User E-sign Co-sign Detail Recorded Client Recorded Date Recorded By Document 07/02/25 10:53 RB [id number] 07/02/25 10:57 RB 07/02/25 10:53 Wound Center Nurse 1 #1 ABD -Combined with other wound No -Current Size (cm) - Length 0.5 -Current Size (cm) - Width 2 -Current Size (cm) - Depth 0.1 -Total Square Cm 1.0 -Photo Taken Yes -Tunneling No -Undermining/Tunneling No -Circular Undermining No -Exudate Amt Medium -Exudate Type Serosanguineous -Wound Margin Distinct, Outline Attached -Granulation Amt Medium (34-66%) -Granulation Quality [place] -Slough/Fibrin Yes -Necrosis Amt Medium (34-66%) -Necrotic Tissue Type Adherent Slough -Structure Exposed N/A -Texture (Stephanie-wound Skin Appearance) Assessed -Moisture (Stephanie-wound Skin Appearance) Assessed -Color (Stephanie-wound Skin Appearance) Assessed -Temperature (Stephanie-wound Skin No Abnormality Appearance) (Pt Warm) -Tenderness on Palpation (Stephanie-wound No Skin Appearance) -Ulcer Cleansing Wound Cleanser -Foul Odor after Cleansing No -Anesthetic Used 5% Lidocaine Gel - Nurse 2 - General Ulcer CM Notes Start: 07/02/25 10:53 Freq: Status: Active Protocol: Activity Type Activity Date Activity User E-sign Co-sign Detail Recorded Client Recorded Date Recorded By Document 07/02/25 11:05 [id number] 07/02/25 11:19 07/02/25 11:05 Wound Center Nurse 2 -Time 11:05 -Correct Patient Yes -Correct Side, Site, Position Yes -Correct Procedure Yes -Procedure Performed Yes -Type of Procedure Debridement -Clinical Debridement Subcutaneous -Tissue Removed Subcutaneous -Post Debridement (cm) - Length 0.5 -Post Debridement (cm) - Width 4.0 -Post Debridement (cm) - Depth 0.2 -Total Square (Post) (cm) 2.00 -Area of Debridement (cm) - Length 0.5 -Area of Debridement (cm) - Width 4.0 -Total Square (Area) (cm) 2.00 -Tunneling No -Undermining/Tunneling No -Circular Undermining No -Wound/Ulcer Outcome Not Healed -Ulcer Cleansing Rinsed/ Irrigated with Saline -Foul Odor after Cleansing No -Bioengineered Tissue No -Bleeding Controlled with Pressure -Treatment Response Procedure Tolerated Well -Offloading No -Debridement - Subq, 1st 20sq cm Yes Pain Scale: 0-10 Numeric Is Patient Pain Free? Yes - Nurse 3 - General Ulcer D/C NN Start: 07/02/25 10:53 Freq: Status: Active Protocol: Activity Type Activity Date Activity User E-sign Co-sign Detail Recorded Client Recorded Date Recorded By Document 07/02/25 11:34 COY [id number] 07/02/25 11:34 COY 07/02/25 11:34 Wound Care Center Nurse 3 #1 ABD -Ulcer Cleansing Wound Cleanser -Primary Dressing Applied Aquacel AG 4x4 -Other Dressing ABD -Primary Dressing Covered/Secured with Secured with Tape -Aquacel AG 4x4 1 Treatment Response Procedure Tolerated Well Pain Scale: 0-10 Numeric Is Patient Pain Free? Yes WC - Visit Discharge Discharge Condition Stable Ambulatory Status Ambulatory Transportation Private Auto Medication Reconcilliation completed & No provided to patient/care provider Clinical Summary of Care Provided Yes Assessment/Plan Assessment/Plan (1) Subcutaneous abscess: CODE(S): L02.91 - Cutaneous abscess, unspecified QUALIFIERS: Site of cutaneous abscess: trunk Site of cutaneous abscess of trunk: abdominal wall Qualified Code(s): L02.211 - Cutaneous abscessof abdominal wall (2) Surgical wound, non healing: CODE(S): T81.89XA - Other complications of procedures, not elsewhere classified, initial encounter QUALIFIERS: Encounter type: initial encounter Qualified Code(s): T81.89XA - Other complications of procedures, not elsewhere classified, initial encounter (3) Skin ulcer of abdominal wall with fat layer exposed: CODE(S): L98.492 - Non-pressure chronic ulcer of skin of other sites with fat layer exposed PLAN: Plan Debridement performed today in clinic as annotated above. At home wound-care instructions: Wound vac will be discontinued and she will apply Aquacel Ag to the ulcer every other day and cover with ABD. Keep dressing clean and dry. Off-loading: The patient was instructed to avoid pressure and friction on the affected areas. Reposition every 2 hours at minimum. Avoid prolonged standing and/or dangling of legs. When seated, feet should be elevated at chest level. Frequent ambulation is encouraged. Diet: Patient encouraged to increase protein intake while taking caution to avoid high carbohydrate and/or sugar intake. Labs/cultures/imaging: Culture from 06/09/25 was positive for anaerobic bacteria and rare growth of Staph, Morganella, E. faecalis and Corynebacterium. She was started on Ciprofloxacin to cover the Morganella morganii and will continue Flagyl. She will take Fluconazole once weekly. Wound culture was positive for E.faecalis and anaerobic bacteria. She was started on Augmentin. Follow-up: Return in 1 week for wound care follow up. Return sooner or report tothe emergency room should symptoms worsen, or new symptoms arise. Note: [employer] speech recognition continuity writer software was used to create portions of this document. Sound-alike and misspelled words, as well as other continuity writer errors may be contained in the documentation. 07/02/25 1443 <Electronically signed by Rekha Pruett DO> Cosigner Signature (if applicable): CC: ~ Signed [facility] Work Phone: 1(925) 630-216309-26-2025 Progress note Author Rekha Pruett [facility] Note Date/Time June 25, 2025 1:24pm [facility] [address] [place] [id number] Progress Note - Wound Care 06/25/25 1320 MR#: [id number] Acct: [id number] Name: FEDERICOBARBY EDWINA Rep #:[id number] : 1990 34 From: Rekha Pruett DO PCP: Dr. Steffen Eisenberg MD Status:REG RCR Location: History of Present Illness Date of Service: 06/25/25 Chief Complaint: Surgical abdominal wound s/p abscess drainage History of Wound: Gunjan is a pleasant 34-year-old white female that had a C- section on May 12, 2025. The wound became infected and she developed an abscess which was drained by Dr. Hernandez via re-opening the incision on 05/27/25. A wound vac was placed to help heal the surgical incision prior to discharge on 05/28/25. She was treated with IV antibiotics initially and discharged on Bactrim DS. She did develop a yeast infection of the skin surrounding the ulcer and was started on Fluconazole on 06/05/25. She was seen at the wound center for follow up on 06/09/25 by Keysha Carr CNP and a wound culture was completed which showed Morganella morganii, Staph epidermidis, Corynebacterium, and E. faecalis in very rare amounts as well as anaerobic bacteria. She was started on Flagyl for treatment of the anaerobic bacteria. Shehas been packing the wound with Dakins wet to dry dressings to give her skin a chance to heal from the yeast infection and has been tolerating this treatment well. She denies any fever, chills, increased drainage, erythema or odor. Objective Data Objective Data Vital Signs: Vital Signs Temp Pulse Resp BP O2 Del Method 97.5 F L 100 18 139/77 H Room Air 06/25/25 11:15 06/18/25 09:48 06/25/25 11:15 06/25/25 11:15 06/25/25 11:15 Oxygen Delivery Method Room Air Weight: 118.026 kg Body Mass Index (BMI) 47.5 Lab / Micro Data Micro: Microbiology 06/09/25 08:56 Wound - Abdominal Gram Stain - Final 06/09/25 08:56 Wound - Abdominal Wound Culture - Final Morganella morganii sp morgani Staphylococcus epidermidis Corynebacterium amycolatum Enterococcus faecalis 06/09/25 08:56 Wound - Abdominal Anaerobic Culture - Final Prevotella bivia Anaerobic cocci Physical Exam Const alert, oriented x3 and no apparent distress General Appearance: cooperative and comfortable HEENT normocephalic and head/scalp atraumatic Resp normal respiratory effort Effort and Inspection: able to speak in complete sentences Cardio regular rate and regular rhythm Skin Wounds: wounds noted Wound Narrative: measurements as in clinical panel, pink and healthy appearing surgical wound of mid-abdomen with granulation tissue throughout, left abdomen superior to wound there is an area of dense tissue which is likely resolving inflammation and scarring from seroma/abscess Psych mental status grossly normal, thought process normal, cooperative and affect normal Debridement Note Debridement Note Wound debrided: mid abdomen Laterality: Not Applicable Type of Debridement: Excisional debridement Anesthesia Used: 4% Lidocaine Solution and 5% Lidocaine Gel Depth: Down to and including healthy tissue and in the subcutaneous layer Percentage of wound debrided: 100 Instrument Used: 3mm curette Tissue Removed: Yellow slough, devitalized tissue Severity: Fat Layer Exposed Amount of bleeding with debridement: Mild Bleeding Controlled with: Compression and gauze Patient tolerated procedure: Patient tolerated procedure well Post-Debridement Measurements and Additional Note: Post-Debridement Measurements/Treatment - Nurse 1 - General Ulcer Assessment Start: 06/09/25 07:59 Freq: Status: Active Protocol: RAHEEM Activity Type Activity Date Activity User E-sign Co-sign Detail Recorded Client Recorded Date Recorded By Document 06/09/25 08:17 DL [id number] 06/09/25 08:33 DL Document 06/18/25 09:48 DS [id number] 06/18/25 10:09 DS Document 06/25/25 11:15 DS [id number] 06/25/25 11:27 DS 06/09/25 06/18/25 06/25/25 08:17 09:48 11:15 - Today's Visit Information Type of service Initial Visit Follow-up Visit Follow-up Visit (Physician/LUBRICATION SERVICER (Physician/LUBRICATION SERVICER ) ) Arrival Mode Ambulatory Ambulatory Ambulatory Transfer Assistance None Patient Identification Verified (Name & Yes Yes Yes ) Patient Requires Transmission-Based No No No Precautions Safety Precautions Fall Prevention Fall Prevention Height and Weight Height 5 ft 2 in Weight 118.026 kg Weight in Pounds 260.2 lbs Body Mass Index (BMI) 47.5 47.5 47.5 BMI Classification Obese Obese Obese Vital Signs Temperature (97.8 F-99.1 F) 98.2 F 98.0 F 97.5 F L Temperature Source Temporal Temporal Temporal Pulse Rate (60-100) 87 100 Pulse Location Monitor Monitor Monitor Respiratory Rate (12-18) 14 185 H 18 Respiratory rate source Observation Observation Observation Oxygen Delivery Method Room Air Room Air Blood Pressure (90/60-120/80) 123/89 H 142/104 H 139/77 H Blood Pressure Mean (mm Hg) 100 116 97 Source Monitor Monitor Monitor Position Sitting Sitting Blood Pressure Location Left Forearm Left Arm History Since Last Visit- (Skip if this is Patient's initial visit) Have you changed medications since your No No last visit? Any new allergies or adverse reactions No No Had a fall/change in ADL's that may No No increase risk of falls Signs or symptoms of abuse and/or No No neglect since last visit Have you been in the hospital since your No No last visit? Has dressing in place as prescribed Yes Yes Has compression in place as prescribed N/A N/A Has offloadiing in place as prescribed N/A N/A Experienced any changes in pain level or Yes Yes management Left Footwear Regular Shoe Regular Shoe Right Footwear Regular Shoe Regular Shoe Pain Scale: 0-10 Numeric Is Patient Pain Free? Yes Yes Yes Communication Assessment Preferred language [place] Teaching Assessment Preferences Verbal,Written, Demonstration Barriers to Learning None Readiness To Learn Good Willingness to Engage in Self Management High Activies Readiness to Engage in Self Management High Activities Anxiety Level Calm Cooperation Cooperative Perception Coherent Interest in Health Problem Asks Questions Education Importance Acknowledges Need Does Patient Smoke tobacco or other No substances Smoking Status Former smoker Is Patient Diabetic No Teaching: Wound Center Discharge Instructions -Person Taught Patient *Welcome to the Wound Center -Person Taught Patient WC - Nurse 1 - General Ulcer Measurement Start: 06/09/25 07:59 Freq: Status: Active Protocol: Activity Type Activity Date Activity User E-sign Co-sign Detail Recorded Client Recorded Date Recorded By Document 06/09/25 08:17 DL [id number] 06/09/25 08:33 DL Document 06/18/25 09:48 DS [id number] 06/18/25 10:09 DS Document 06/25/25 11:15 DS [id number] 06/25/25 11:27 DS 06/09/25 06/18/25 06/25/25 08:17 09:48 11:15 Wound Center Nurse 1 #1 ABD -Current Size (cm) - Length 2 1.0 0.9 -Current Size (cm) - Width 11.6 9.8 9.0 -Current Size (cm) - Depth 2 1.0 0.5 -Total Square Cm 23.2 9.80 8.10 -Date of Last Picture (Recall this 06/18/25 06/25/25 field) -Photo Taken Yes Yes Yes -Tunneling No No -Undermining/Tunneling No No -Circular Undermining No No -Exudate Amt Medium Medium None Present -Exudate Type Serosanguineous Serosanguineous -Wound Margin Distinct, Distinct, Outline Outline Attached Attached -Granulation Amt Large (67-100%) Large (67-100%) Large (67-100%) -Granulation Quality [place] -Necrosis Amt None Present (0 %) -Structure Exposed N/A -Texture (Stephanie-wound Skin Appearance) Scarring,Rash Assessed Assessed -Moisture (Stephanie-wound Skin Appearance) Weeping Assessed Assessed -Color (Stephanie-wound Skin Appearance) No Abnormality Assessed Assessed -Temperature (Stephanie-wound Skin No Abnormality No Abnormality No Abnormality Appearance) (Pt Warm) (Pt Warm) (Pt Warm) -Tenderness on Palpation (Stephanie-wound No No No Skin Appearance) -Ulcer Cleansing Soap and Water Soap and Water Soap and Water -Foul Odor after Cleansing No No No -Anesthetic Used 4% Lidocaine 4% Lidocaine 5% Lidocaine Solution Solution Gel WC - Nurse 2 - General Ulcer CM Notes Start: 06/09/25 07:59 Freq: Status: Active Protocol: Activity Type Activity Date Activity User E-sign Co-sign Detail Recorded Client Recorded Date Recorded By Document 06/09/25 08:53 [facility] [id number] 06/09/25 09:06 [facility] Document 06/18/25 10:42 [id number] 06/18/25 10:53 Document 06/25/25 11:33 [id number] 06/25/25 11:45 06/09/25 06/18/25 06/25/25 08:53 10:42 11:33 Wound Center Nurse 2 #1 ABD -Time 08:54 10:45 11:33 -Correct Patient Yes Yes Yes -Correct Side, Site, Position Yes Yes Yes -Correct Procedure Yes Yes Yes -Procedure Performed Yes Yes Yes -Type of Procedure Debridement Debridement Debridement -Clinical Debridement Muscle / Fascia Subcutaneous Subcutaneous -Tissue Removed Muscle,Fascia Subcutaneous Subcutaneous -Post Debridement (cm) - Length 1 1.5 1.6 -Post Debridement (cm) - Width 13.5 11.0 9.5 -Post Debridement (cm) - Depth 2.5 1.0 0.8 -Total Square (Post) (cm) 13.5 16.50 15.20 -Area of Debridement (cm) - Length 1 1.5 1.6 -Area of Debridement (cm) - Width 13.5 11.0 9.5 -Total Square (Area) (cm) 13.5 16.50 15.20 -Tunneling No No No -Undermining/Tunneling No No No -Circular Undermining No No No -Wound/Ulcer Outcome Not Healed Not Healed Not Healed -Ulcer Cleansing Rinsed/ Rinsed/ Rinsed/ Irrigated with Irrigated with Irrigated with Saline Saline Saline -Foul Odor after Cleansing No No No -Bioengineered Tissue No No No -Bleeding Controlled with Pressure Pressure Pressure -Treatment Response Procedure Procedure Procedure Tolerated Well Tolerated Well Tolerated Well -Offloading No No -Debridement - Subq, 1st 20sq cm Yes Yes -Debridement - Muscle / Fascia, 1st Yes 20sq cm Pain Scale: 0-10 Numeric Is Patient Pain Free? Yes Yes Yes - Nurse 3 - General Ulcer D/C NN Start: 06/09/25 07:59 Freq: Status: Active Protocol: Activity Type Activity Date Activity User E-sign Co-sign Detail Recorded Client Recorded Date Recorded By Document 06/09/25 09:18 DL [id number] 06/09/25 09:19 DL Document 06/18/25 11:06 KW [id number] 06/18/25 11:41 KW Document 06/25/25 12:26 RB [id number] 06/25/25 12:27 RB 06/09/25 06/18/25 06/25/25 09:18 11:06 12:26 Wound Care Center Nurse 3 #1 ABD -Ulcer Cleansing Soap and Water Rinsed/ Irrigated with Saline -Foul Odor after Cleansing No -Negative Pressure Wound Therapy Continue -Pieces of Black Foam Inserted 1 1 -NPWT Application Charge NPWT & NPWT & Debridement (nc Debridement (nc ) ) -Setting (mmHg) 125 125 -Negative Pressure is Continuous Continuous -Primary Dressing Applied Hysept -Other Dressing Dakins -Primary Dressing Covered/Secured with Dry Gauze, Secured with Tape -Hysept 1 -Wound Comment(s) Vac Holiday Stephanie-Wound Care Barrier Treatment Response Procedure Procedure Tolerated Well Tolerated Well Pain Scale: 0-10 Numeric Is Patient Pain Free? Yes Yes Yes - Visit Discharge Discharge Condition Stable Stable Stable Ambulatory Status Ambulatory Ambulatory Ambulatory Transportation Private Auto Private Auto Private Auto Medication Reconcilliation completed & No No provided to patient/care provider Clinical Summary of Care Provided Yes Yes Facility Type Home Health Orders Sent Yes Assessment/Plan Assessment/Plan (1) Subcutaneous abscess: CODE(S): L02.91 - Cutaneous abscess, unspecified QUALIFIERS: Site of cutaneous abscess: trunk Site of cutaneous abscess of trunk: abdominal wall Qualified Code(s): L02.211 - Cutaneous abscessof abdominal wall (2) Surgical wound, non healing: CODE(S): T81.89XA - Other complications of procedures, not elsewhere classified, initial encounter QUALIFIERS: Encounter type: initial encounter Qualified Code(s): T81.89XA - Other complications of procedures, not elsewhere classified, initial encounter (3) Skin ulcer of abdominal wall with fat layer exposed: CODE(S): L98.492 - Non-pressure chronic ulcer of skin of other sites with fat layer exposed PLAN: Plan Debridement performed today in clinic as annotated above. At home wound-care instructions: Wound vac will be reapplied and set to a negative pressure setting of 125 mmHg. It will be changed on Saturday, Saturday and Saturday. Keep dressing clean and dry. Off-loading: The patient was instructed to avoid pressure and friction on the affected areas. Reposition every 2 hours at minimum. Avoid prolonged standing and/or dangling of legs. When seated, feet should be elevated at chest level. Frequent ambulation is encouraged. Diet: Patient encouraged to increase protein intake while taking caution to avoid high carbohydrate and/or sugar intake. Labs/cultures/imaging: Culture from 06/09/25 was positive for anaerobic bacteria and rare growth of Staph, Morganella, E. faecalis and Corynebacterium. She was started on Ciprofloxacin to cover the Morganella morganii and will continue Flagyl. She will take Fluconazole once weekly. Wound culture taken today and if still positive for E. faecalis will treat her with Linezolid. Follow-up: Return in 1 week for wound care follow up. Return sooner or report tothe emergency room should symptoms worsen, or new symptoms arise. Note: [employer] speech recognition continuity writer software was used to create portions of this document. Sound-alike and misspelled words, as well as other continuity writer errors may be contained in the documentation. 06/25/25 1324 <Electronically signed by Rekha Pruett DO> Cosigner Signature (if applicable): CC: ~ Signed [facility] Work Phone: [phone] 290-426109-19-2025 History and physical note Author Rekha Pruett [facility] Note Date/Time June 18, 2025 3:15pm [facility] [place] [address] H&P Exam - Wound Care 06/18/25 1343 MR#: [id number] Acct: [id number] Name: BARBY CABALLERO Rep #:[id number] : 1990 34 From: Rekha Pruett DO PCP: Dr. Steffen Eisenberg MD Status:REG RCR Location: History of Present Illness Date of Service: 06/18/25 Chief Complaint: Surgical abdominal wound s/p abscess drainage History of Wound: Gunjan is a pleasant 34-year-old white female that had a C- section on May 12, 2025. The wound became infected and she developed an abscess which was drained by Dr. Hernandez via re-opening the incision on 05/27/25. A wound vac was placed to help heal the surgical incision prior to discharge on 05/28/25. She was treated with IV antibiotics initially and discharged on Bactrim DS. She did develop a yeast infection of the skin surrounding the ulcer and was started on Fluconazole on 06/05/25. She was seen at the wound center for follow up on 06/09/25 by Keysha Carr CNP and a wound culture was completed which showed Morganella morganii, Staph epidermidis, Corynebacterium, and E. faecalis in very rare amounts as well as anaerobic bacteria. She was started on Flagyl for treatment of the anaerobic bacteria. Shehas been packing the wound with Dakins wet to dry dressings to give her skin a chance to heal from the yeast infection and has been tolerating this treatment well. She denies any fever, chills, increased drainage, erythema or odor. [facility] Medical History PCOS (polycystic ovarian syndrome) [...] PRN fever or pain 05/24/25 05/24/25 History CPAP - Continuous Positive Airway 05/28/25 Unknown Hi story Pressure([facility] INFORMATIONAL USE ONLY) fluconazole 100 mg tablet 100 mg PO DAILY 7 days #7 ta bs 06/05/25 Unknown Rx ciprofloxacin HCl 500 mg tablet 500 mg PO BID #20 tabs 06/18/25 Unknown Rx Allergy/AdvReac Type Severity Reaction Status Date / Time No Known Allergies Allergy Verified 06/10/25 08:30 Family History Mother Hypertension Grandfather Heart disease Hypertension Diabetes Cancer Macular degeneration Grandmother Macular degeneration Surgical History H/O successful vaginal after , currently H/O section History of surgical procedure S/P cholecystectomy S/P S/P wisdom tooth extraction Social History adopted: No household members: spouse and children housing: house number of children: 1 current occupational status: unemployed current occupation: [employer] current occupational exposures/hazards: No pets and [...] physical activity do you participate in: none landon/yazidism: None seatbelt use: always do you feel safe at home: Yes additional social history: : 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) ROS Constitutional Constitutional: Denies chills, fatigue or fever(s) Eyes Eyes: Denies blurry vision, change in vision or loss of vision ENT HEENT: Denies dysphagia, hearing loss or sore throat Cardiovascular Cardiovascular: Denies chest pain, edema or palpitations Respiratory/Chest Respiratory/Chest: Denies dry cough, dyspnea, dyspnea on exertion, productive cough or wheezing Gastrointestinal Gastrointestinal: Denies diarrhea, nausea or vomiting Genitourinary Genitourinary: Denies dysuria or polyuria Musculoskeletal Musculoskeletal: Denies arthralgias, joint stiffness or muscle weakness Integumentary Integumentary: Reports erythema and wounds Neurologic Neurologic: Denies dizziness, memory loss or weakness Psychiatric Psychiatric: Denies homicidal ideation or suicidal ideation Endocrine Endocrinology: Denies polydipsia, polyphagia or polyuria Hematologic/Lymphatic Hematologic/Lymphatic: Denies easy bleeding or easy bruising Allergic/Immunologic Allergic/Immunologic: Denies throat swelling, tongue swelling or urticaria Vital Signs Vital Signs Vital Signs: 06/18/25 09:48 Temperature 98.0 F Temperature Source Temporal Pulse Rate 100 Respiratory Rate 185 H Blood Pressure 142/104 H Blood Pressure Mean 116 Blood Pressure Source Monitor Blood Pressure Position Sitting Blood Pressure Location Left Forearm Oxygen Delivery Method Room Air Weight Weight: 118.026 kg Body Mass Index (BMI) 47.5 Physical Exam Const alert, oriented x3 and no apparent distress General Appearance: cooperative and comfortable HEENT normocephalic and head/scalp atraumatic Resp normal respiratory effort Effort and Inspection: able to speak in complete sentences Cardio regular rate and regular rhythm Skin Wounds: wounds noted Wound Narrative: measurements as in clinical panel, pink and healthy appearing surgical wound of mid-abdomen with granulation tissue throughout Psych mental status grossly normal, thought process normal, cooperative and affect normal Debridement Note Debridement Note Wound debrided: mid abdomen Laterality: Not Applicable Type of Debridement: Excisional debridement Anesthesia Used: 4% Lidocaine Solution and 5% Lidocaine Gel Depth: Down to and including healthy tissue and in the subcutaneous layer Percentage of wound debrided: 100 Instrument Used: 5mm curette Tissue Removed: Yellow slough, devitalized tissue Severity: Fat Layer Exposed Amount of bleeding with debridement: Mild Bleeding Controlled with: Compression and gauze Patient tolerated procedure: Patient tolerated procedure well Post-Debridement Measurements and Additional Note: Post-Debridement Measurements/Treatment WC - Nurse 1 - General Ulcer Assessment Start: 06/09/25 07:59 Freq: Status: Active Protocol: RAHEEM Activity Type Activity Date Activity User E-sign Co-sign Detail Recorded Client Recorded Date Recorded By Document 06/09/25 08:17 DL [id number] 06/09/25 08:33 DL Document 06/18/25 09:48 DS [id number] 06/18/25 10:09 DS 06/09/25 06/18/25 08:17 09:48 WC - Today's Visit Information Type of service Initial Visit Follow-up Visit (Physician/LUBRICATION SERVICER ) Arrival Mode Ambulatory Ambulatory Transfer Assistance None Patient Identification Verified (Name & Yes Yes ) Patient Requires Transmission-Based No No Precautions Safety Precautions Fall Prevention Height and Weight Height 5 ft 2 in Weight 118.026 kg Weight in Pounds 260.2 lbs Body Mass Index (BMI) 47.5 47.5 BMI Classification Obese Obese Vital Signs Temperature (97.8 F-99.1 F) 98.2 F 98.0 F Temperature Source Temporal Temporal Pulse Rate (60-100) 87 100 Pulse Location Monitor Monitor Respiratory Rate (12-18) 14 185 H Respiratory rate source Observation Observation Oxygen Delivery Method Room Air Blood Pressure (90/60-120/80) 123/89 H 142/104 H Blood Pressure Mean (mm Hg) 100 116 Source Monitor Monitor Position Sitting Blood Pressure Location Left Forearm History Since Last Visit- (Skip if this is Patient's initial visit) Have you changed medications since your No last visit? Any new allergies or adverse reactions No Had a fall/change in ADL's that may No increase risk of falls Signs or symptoms of abuse and/or No neglect since last visit Have you been in the hospital since your No last visit? Has dressing in place as prescribed Yes Has compression in place as prescribed N/A Has offloadiing in place as prescribed N/A Experienced any changes in pain level or Yes management Left Footwear Regular Shoe Right Footwear Regular Shoe Pain Scale: 0-10 Numeric Is Patient Pain Free? Yes Yes Communication Assessment Preferred language [place] Teaching Assessment Preferences Verbal,Written, Demonstration Barriers to Learning None Readiness To Learn Good Willingness to Engage in Self Management High Activies Readiness to Engage in Self Management High Activities Anxiety Level Calm Cooperation Cooperative Perception Coherent Interest in Health Problem Asks Questions Education Importance Acknowledges Need Does Patient Smoke tobacco or other No substances Smoking Status Former smoker Is Patient Diabetic No Teaching: Wound Center Discharge Instructions -Person Taught Patient *Welcome to the Wound Center -Person Taught Patient WC - Nurse 1 - General Ulcer Measurement Start: 06/09/25 07:59 Freq: Status: Active Protocol: Activity Type Activity Date Activity User E-sign Co-sign Detail Recorded Client Recorded Date Recorded By Document 06/09/25 08:17 DL [id number] 06/09/25 08:33 DL Document 06/18/25 09:48 DS [id number] 06/18/25 10:09 DS 06/09/25 06/18/25 08:17 09:48 Wound Center Nurse 1 #1 ABD -Current Size (cm) - Length 2 1.0 -Current Size (cm) - Width 11.6 9.8 -Current Size (cm) - Depth 2 1.0 -Total Square Cm 23.2 9.80 -Date of Last Picture (Recall this 06/18/25 field) -Photo Taken Yes Yes -Tunneling No -Undermining/Tunneling No -Circular Undermining No -Exudate Amt Medium Medium -Exudate Type Serosanguineous Serosanguineous -Wound Margin Distinct, Distinct, Outline Outline Attached Attached -Granulation Amt Large (67-100%) Large (67-100%) -Granulation Quality Red Red -Necrosis Amt None Present (0 %) -Structure Exposed N/A -Texture (Stephanie-wound Skin Appearance) Scarring,Rash Assessed -Moisture (Stephanie-wound Skin Appearance) Weeping Assessed -Color (Stephanie-wound Skin Appearance) No Abnormality Assessed -Temperature (Stephanie-wound Skin No Abnormality No Abnormality Appearance) (Pt Warm) (Pt Warm) -Tenderness on Palpation (Stephanie-wound No No Skin Appearance) -Ulcer Cleansing Soap and Water Soap and Water -Foul Odor after Cleansing No No -Anesthetic Used 4% Lidocaine 4% Lidocaine Solution Solution WC - Nurse 2 - General Ulcer CM Notes Start: 06/09/25 07:59 Freq: Status: Active Protocol: Activity Type Activity Date Activity User E-sign Co-sign Detail Recorded Client Recorded Date Recorded By Document 06/09/25 08:53 [facility] [id number] 06/09/25 09:06 BM Document 06/18/25 10:42 GM [id number] 06/18/25 10:53 06/09/25 06/18/25 08:53 10:42 Wound Center Nurse 2 #1 ABD -Time 08:54 10:45 -Correct Patient Yes Yes -Correct Side, Site, Position Yes Yes -Correct Procedure Yes Yes -Procedure Performed Yes Yes -Type of Procedure Debridement Debridement -Clinical Debridement Muscle / Fascia Subcutaneous -Tissue Removed Muscle,Fascia Subcutaneous -Post Debridement (cm) - Length 1 1.5 -Post Debridement (cm) - Width 13.5 11.0 -Post Debridement (cm) - Depth 2.5 1.0 -Total Square (Post) (cm) 13.5 16.50 -Area of Debridement (cm) - Length 1 1.5 -Area of Debridement (cm) - Width 13.5 11.0 -Total Square (Area) (cm) 13.5 16.50 -Tunneling No No -Undermining/Tunneling No No -Circular Undermining No No -Wound/Ulcer Outcome Not Healed Not Healed -Ulcer Cleansing Rinsed/ Rinsed/ Irrigated with Irrigated with Saline Saline -Foul Odor after Cleansing No No -Bioengineered Tissue No No -Bleeding Controlled with Pressure Pressure -Treatment Response Procedure Procedure Tolerated Well Tolerated Well -Offloading No -Debridement - Subq, 1st 20sq cm Yes -Debridement - Muscle / Fascia, 1st Yes 20sq cm Pain Scale: 0-10 Numeric Is Patient Pain Free? Yes Yes WC - Nurse 3 - General Ulcer D/C NN Start: 06/09/25 07:59 Freq: Status: Active Protocol: Activity Type Activity Date Activity User E-sign Co-sign Detail Recorded Client Recorded Date Recorded By Document 06/09/25 09:18 DL [id number] 06/09/25 09:19 DL Document 06/18/25 11:06 KW [id number] 06/18/25 11:41 KW 06/09/25 06/18/25 09:18 11:06 Wound Care Center Nurse 3 #1 ABD -Ulcer Cleansing Soap and Water -Foul Odor after Cleansing No -Pieces of Black Foam Inserted 1 -NPWT Application Charge NPWT & Debridement (nc ) -Setting (mmHg) 125 -Negative Pressure is Continuous -Primary Dressing Applied Hysept -Other Dressing Dakins -Primary Dressing Covered/Secured with Dry Gauze, Secured with Tape -Hysept 1 -Wound Comment(s) Vac Holiday Treatment Response Procedure Tolerated Well Pain Scale: 0-10 Numeric Is Patient Pain Free? Yes Yes WC - Visit Discharge Discharge Condition Stable Stable Ambulatory Status Ambulatory Ambulatory Transportation Private Auto Private Auto Medication Reconcilliation completed & No provided to patient/care provider Clinical Summary of Care Provided Yes Facility Type Home Health Orders Sent Yes Assessment/Plan Assessment/Plan (1) Subcutaneous abscess: CODE(S): L02.91 - Cutaneous abscess, unspecified QUALIFIERS: Site of cutaneous abscess: trunk Site of cutaneous abscess of trunk: abdominal wall Qualified Code(s): L02.211 - Cutaneous abscessof abdominal wall (2) Surgical wound, non healing: CODE(S): T81.89XA - Other complications of procedures, not elsewhere classified, initial encounter QUALIFIERS: Encounter type: initial encounter Qualified Code(s): T81.89XA - Other complications of procedures, not elsewhere classified, initial encounter (3) Skin ulcer of abdominal wall with fat layer exposed: CODE(S): L98.492 - Non-pressure chronic ulcer of skin of other sites with fat layer exposed PLAN: Plan Debridement performed today in clinic as annotated above. At home wound-care instructions: Wound vac will be applied and set to a negativepressure setting of 125 mmHg. It will be changed on Saturday, Saturday and Saturday. Keep dressing clean and dry. Off-loading: The patient was instructed to avoid pressure and friction on the affected areas. Reposition every 2 hours at minimum. Avoid prolonged standing and/or dangling of legs. When seated, feet should be elevated at chest level. Frequent ambulation is encouraged. Diet: Patient encouraged to increase protein intake while taking caution to avoid high carbohydrate and/or sugar intake. Labs/cultures/imaging: Culture from 06/09/25 was positive for anaerobic bacteria and rare growth of Staph, Morganella, E. faecalis and Corynebacterium. She was started on Ciprofloxacin to cover the Morganella morganii and will continue Flagyl. She will take Fluconazole once weekly. Will reassess with wound culture next Saturday and if still positive for E. faecalis will treat her with Linezolid. Follow-up: Return in 1 week for wound care follow up. Return sooner or report tothe emergency room should symptoms worsen, or new symptoms arise. Note: [employer] speech recognition continuity writer software was used to create portions of this document. Sound-alike and misspelled words, as well as other continuity writer errors may be contained in the documentation. 06/18/25 1515 <Electronically signed by Rekha Pruett DO> Cosigner Signature (if applicable): CC: ~ Signed [facility] Work Phone: [phone] 280-709509-10-2025 History and physical note Author Keysha Carr [facility] Note Date/Time June 09, 2025 12:25pm [facility] [address] [place] [address] H&P Exam - Wound Care 06/09/25 1215 MR#: [id number] Acct: [id number] Name: BARBY CABALLERO Rep #:[id number] : 1990 34 From: Keysha Carr NP [employer] PCP: Dr. Steffen Eisenberg MD Status:REG RCR Location: History of Present Illness Date of Service: 06/09/25 Chief Complaint: Surgical abdominal wound infected History of Wound: 34-year-old white female that had a recent about 4 weeks ago. The wound became infected and they reopened her approximately 2 weeks ago. And applied a wound VAC to it. They supposedly started her on antibiotics from wound cultures and she developeda yeast infection around the wound because of the wetness from the wound VAC on the drape. They did give her 7 days of Diflucan but that was all. The wound is a full-thickness in the shape of her wound. [facility] Medical History PCOS (polycystic ovarian syndrome) [...] PRN fever or pain 05/24/25 05/24/25 History CPAP - Continuous Positive Airway 05/28/25 Unknown Hi story Pressure([facility] INFORMATIONAL USE ONLY) oxycodone 5 mg tablet 5 mg PO Q4H PRN PRN Pain Sco re 05/28/25 Unknown Rx 4-10 7 days #30 tabs fluconazole 100 mg tablet 100 mg PO DAILY 7 days #7 ta bs 06/05/25 Unknown Rx Allergy/AdvReac Type Severity Reaction Status Date / Time No Known Allergies Allergy Verified 06/09/25 08:35 Family History Mother Hypertension Grandfather Heart disease Hypertension Diabetes Cancer Macular degeneration Grandmother Macular degeneration Surgical History H/O successful vaginal after , currently H/O section History of surgical procedure S/P cholecystectomy S/P S/P wisdom tooth extraction Social History adopted: No household members: spouse and children housing: house number of children: 1 current occupational status: unemployed current occupation: [employer] current occupational exposures/hazards: No pets and [...] physical activity do you participate in: none landon/yazidism: None seatbelt use: always do you feel safe at home: Yes additional social history: : [employer] (works from home) Addt'l Information Additional Findings: We did a wound culture to the wound after debridement of the full-thickness and will give her a VAC holiday for a week to clear up her skin. Will also extend her Diflucan to [address] should be to clear it up. ROS Constitutional Constitutional: Reports systems reviewed and no addt'l complaints, except as documented Eyes Eyes: Reports systems reviewed and no addt'l complaints, except as documented ENT HEENT: Reports systems reviewed and no addt'l complaints, except as documented Cardiovascular Cardiovascular: Reports systems reviewed and no addt'l complaints, except as documented Respiratory/Chest Respiratory/Chest: Reports systems reviewed and no addt'l complaints, except as documented Gastrointestinal Gastrointestinal: Reports systems reviewed and no addt'l complaints, except as documented Genitourinary Genitourinary: Reports systems reviewed and no addt'l complaints, except as documented Musculoskeletal Musculoskeletal: Reports systems reviewed and no addt'l complaints, except as documented Integumentary Integumentary: Reports systems reviewed and no addt'l complaints, except as documented, wounds and other Details: Open surgical wound that had become infected after a normal with positive depth Neurologic Neurologic: Reports systems reviewed and no addt'l complaints, except as documented Psychiatric Psychiatric: Reports systems reviewed and no addt'l complaints, except as documented Endocrine Endocrinology: Reports systems reviewed and no addt'l complaints, except as documented Hematologic/Lymphatic Hematologic/Lymphatic: Reports systems reviewed and no addt'l complaints, exceptas documented Allergic/Immunologic Allergic/Immunologic: Reports systems reviewed and no addt'l complaints, except as documented Vital Signs Vital Signs Vital Signs: 06/09/25 08:17 Temperature 98.2 F Temperature Source Temporal Pulse Rate 87 Respiratory Rate 14 Blood Pressure 123/89 H Blood Pressure Mean 100 Blood Pressure Source Monitor Weight Weight: 260 lb 3.23 oz Body Mass Index (BMI) 47.5 Physical Exam Const oriented x3 General Appearance: cooperative Exam Limitations: no limitations HEENT normocephalic Eyes PERRL Neck full ROM General: normal visual inspection Resp normal respiratory effort Effort and Inspection: able to speak in complete sentences Auscultation: clear to auscultation bilaterally Cardio regular rate and regular rhythm Palpation: normal PMI Rate: regular rate Rhythm: regular rhythm GI Auscultation: normoactive bowel sounds Palpation: soft and no hepatosplenomegaly external exam normal Back/Spine Cervical Spine: cervical ROM normal Thoracic Spine / Upper Back: normal to inspection Lumbar Spine / Lower Back: normal to inspection Extremity normal to inspection General Extremity: normal exam except as noted Skin Skin Narrative: Open wound at the site of her clean has some odor recultured will follow her up with no wound VAC this week and wet-to-dry with Dakin's and gauze. Patient would like to change days it moved to Fridays. Neuro oriented x3 Psych Appearance: grossly normal Speech: normal speech Thought Content: normal thought content Judgement: judgement good Debridement Note Debridement Note Wound debrided: Abdominal surgical wound infected Type of Debridement: Excisional debridement Anesthesia Used: 5% Lidocaine Gel Depth: in the subcutaneous layer Percentage of wound debrided: 100 Instrument Used: 7mm curette Tissue Removed: Fibrin Severity: Fat Layer Exposed Amount of bleeding with debridement: Mild Bleeding Controlled with: Compression and gauze Patient tolerated procedure: Patient tolerated procedure well Post-Debridement Measurements and Additional Note: Post-Debridement Measurements/Treatment - Nurse 1 - General Ulcer Assessment Start: 06/09/25 07:59 Freq: Status: Active Protocol: [facility] Activity Type Activity Date Activity User E-sign Co-sign Detail Recorded Client Recorded Date Recorded By Document 06/09/25 08:17 DL [id number] 06/09/25 08:33 DL 06/09/25 08:17 - Today's Visit Information Type of service Initial Visit Arrival Mode Ambulatory Transfer Assistance None Patient Identification Verified (Name & Yes ) Patient Requires Transmission-Based No Precautions Height and Weight Height 5 ft 2 in Weight 260 lb 3.23 oz Weight in Pounds 260.2 lbs Body Mass Index (BMI) 47.5 BMI Classification Obese Vital Signs Temperature (97.8 F-99.1 F) 98.2 F Temperature Source Temporal Pulse Rate (60-100) 87 Pulse Location Monitor Respiratory Rate (12-18) 14 Respiratory rate source Observation Blood Pressure (90/60-120/80) 123/89 H Blood Pressure Mean 100 Source Monitor Pain Scale: 0-10 Numeric Is Patient Pain Free? Yes Communication Assessment Preferred language [place] Teaching Assessment Preferences Verbal,Written, Demonstration Barriers to Learning None Readiness To Learn Good Willingness to Engage in Self Management High Activies Readiness to Engage in Self Management High Activities Anxiety Level Calm Cooperation Cooperative Perception Coherent Interest in Health Problem Asks Questions Education Importance Acknowledges Need Does Patient Smoke tobacco or other No substances Smoking Status Former smoker Is Patient Diabetic No Teaching: Wound Center Discharge Instructions -Person Taught Patient *Welcome to the Wound Center -Person Taught Patient - Nurse 1 - General Ulcer Measurement Start: 06/09/25 07:59 Freq: Status: Active Protocol: Activity Type Activity Date Activity User E-sign Co-sign Detail Recorded Client Recorded Date Recorded By Document 06/09/25 08:17 [id number] 06/09/25 08:33 DL 06/09/25 08:17 Wound Center Nurse 1 #1 ABD -Current Size (cm) - Length 2 -Current Size (cm) - Width 11.6 -Current Size (cm) - Depth 2 -Total Square Cm 23.2 -Photo Taken Yes -Exudate Amt Medium -Exudate Type Serosanguineous -Wound Margin Distinct, Outline Attached -Granulation Amt Large (67-100%) -Granulation Quality Red -Necrosis Amt None Present (0 %) -Structure Exposed N/A -Texture (Stephanie-wound Skin Appearance) Scarring,Rash -Moisture (Stephanie-wound Skin Appearance) Weeping -Color (Stephanie-wound Skin Appearance) No Abnormality -Temperature (Stephanie-wound Skin No Abnormality Appearance) (Pt Warm) -Tenderness on Palpation (Stephanie-wound No Skin Appearance) -Ulcer Cleansing Soap and Water -Foul Odor after Cleansing No -Anesthetic Used 4% Lidocaine Solution - Nurse 2 - General Ulcer CM Notes Start: 06/09/25 07:59 Freq: Status: Active Protocol: Activity Type Activity Date Activity User E-sign Co-sign Detail Recorded Client Recorded Date Recorded By Document 06/09/25 08:53 [facility] [id number] 06/09/25 09:06 [facility] 06/09/25 08:53 Wound Center Nurse 2 -Time 08:54 -Correct Patient Yes -Correct Side, Site, Position Yes -Correct Procedure Yes -Procedure Performed Yes -Type of Procedure Debridement -Clinical Debridement Muscle / Fascia -Tissue Removed Muscle,Fascia -Post Debridement (cm) - Length 1 -Post Debridement (cm) - Width 13.5 -Post Debridement (cm) - Depth 2.5 -Total Square (Post) (cm) 13.5 -Area of Debridement (cm) - Length 1 -Area of Debridement (cm) - Width 13.5 -Total Square (Area) (cm) 13.5 -Tunneling No -Undermining/Tunneling No -Circular Undermining No -Wound/Ulcer Outcome Not Healed -Ulcer Cleansing Rinsed/ Irrigated with Saline -Foul Odor after Cleansing No -Bioengineered Tissue No -Bleeding Controlled with Pressure -Treatment Response Procedure Tolerated Well -Debridement - Muscle / Fascia, 1st Yes 20sq cm Pain Scale: 0-10 Numeric Is Patient Pain Free? Yes - Nurse 3 - General Ulcer D/C NN Start: 06/09/25 07:59 Freq: Status: Active Protocol: Activity Type Activity Date Activity User E-sign Co-sign Detail Recorded Client Recorded Date Recorded By Document 06/09/25 09:18 DL [id number] 06/09/25 09:19 DL 06/09/25 09:18 Wound Care Center Nurse 3 #1 ABD -Ulcer Cleansing Soap and Water -Foul Odor after Cleansing No -Primary Dressing Applied Hysept -Other Dressing Dakins -Primary Dressing Covered/Secured with Dry Gauze, Secured with Tape -Hysept 1 -Wound Comment(s) Vac Holiday Treatment Response Procedure Tolerated Well Pain Scale: 0-10 Numeric Is Patient Pain Free? Yes WC - Visit Discharge Discharge Condition Stable Ambulatory Status Ambulatory Transportation Private Auto Facility Type Home Health Orders Sent Yes Assessment/Plan Assessment/Plan (1) Infection due to yeast: CODE(S): B37.9 - Candidiasis, unspecified (2) Subcutaneous abscess: CODE(S): L02.91 - Cutaneous abscess, unspecified QUALIFIERS: Site of cutaneous abscess: trunk Site of cutaneous abscess of trunk: abdominal wall Qualified Code(s): L02.211 - Cutaneous abscessof abdominal wall (3) Surgical wound, non healing: CODE(S): T81.89XA - Other complications of procedures, not elsewhere classified, initial encounter QUALIFIERS: Encounter type: initial encounter Qualified Code(s): T81.89XA - Other complications of procedures, not elsewhere classified, initial encounter PLAN: Wash the wound with antibacterial soap such as Dial pat dry pack wound with Dakin soaked gauze dressing and an ABD over top or a absorbent dressing. Every day change dressing twice a day if having a lot of drainage. Patient prefers to come on Fridays and will moved to a different provider (4) Infected wound: CODE(S): T14.8XXA - Other injury of unspecified body region, initial encounter; L08.9 - Local infection of the skin and subcutaneous tissue, unspecified 06/09/25 1225 <Electronically signed by Keysha Carr NP [employer]OR [employer] HELPER-C> Cosigner Signature (if applicable): CC: ~ Signed [facility] Work Phone: 1(388) 707-251708-29-2025 Discharge summary Author Edel Diehl [facility] Note Date/Time May 28, 2025 5: 16pm [facility] Medical Records Department [address] [place] [address] Discharge Summary 05/28/25 1705 MR#: [id number] Acct: [id number] Name: BARBY CABALLERO Rep #:[id number] : 1990 34 From: Edel Twan Diehl DO PCP: Dr. Steffen Eisenberg MD Status:ADM IN Location: [place] [address] Providers Date of Admission: 05/24/25 Primary Care Physician: Dr. Steffen Eisenberg MD Consultations 05/26/25 17:52 Consult: Infectious Disease Routine Consulting Provider: Levon Schmid Reason for Consult: fever, abscess postop, unresponsive to abx and drainage EMERGENT Consult: No MD Notified: Yes Date Notified: 05/26/25 Time Notified: 17:53 Method of Notification: Text 05/26/25 23:05 Consult: Onc/Wound/director of front office Routine Comment: Reason for Consult:: post op wound management 05/27/25 08:50 Consult: Onc/Wound/director of front office Routine Comment: Reason for Consult:: abdominal wound [...] pain 05/24/25 CPAP - Continuous Positive Airway Pressure([facility] INFORMATIONAL USE ONLY) 05/28/25 oxycodone 5 mg [...] started on Zosyn and admitted to the [facility] floor with a consultation for interventional radiology [...] 77.6 H, Lymph % (Auto) 12.9 L, Posey % (Auto) 7.9, Eos % (Auto) 0.4, [...] 0RF (DME) CPAP - Continuous Positive Airway Pressure([facility] INFORMATIONAL USE ONLY) Device See Rx Instructions [...] Multi Select Codes Visit Charges Visit Charges: 96755 Disch Hosp 05/28/25 1716 <Electronically signed by Edel Bullock DO> Cosigner Signature (if applicable): CC: Dr. Steffen Eisenberg MD; Dr. Edel Bullock DO~ Signed [facility] Work Phone: 1(119) 842-652508-29-2025 Discharge summary [facility] Medical Records Department [address] [place] [address] Discharge Summary 05/28/25 1705 MR#: [id number] Acct: [id number] Name: BARBY CABALLERO Rep #:[id number] : 1990 34 From: Edel Bullock DO PCP: Dr. Stefefn Eisenberg MD Status:ADM IN [facility] Providers Date of Admission: 05/24/25 Primary Care Physician: Dr. Steffen Eisenberg MD Consultations 05/26/25 17:52 Consult: Infectious Disease Routine Consulting Provider: Levon Schmid Reason for Consult: fever, abscess postop, unresponsive to abx and drainage EMERGENT Consult: No MD Notified: Yes Date Notified: 05/26/25 Time Notified: 17:53 Method of Notification: Text 05/26/25 23:05 Consult: Onc/Wound/director of front office Routine Comment: Reason for Consult:: post op wound management 05/27/25 08:50 Consult: Onc/Wound/director of front office Routine Comment: Reason for Consult:: abdominal wound [...] pain 05/24/25 CPAP - Continuous Positive Airway Pressure([facility] INFORMATIONAL USE ONLY) 05/28/25 oxycodone 5 mg [...] started on Zosyn and admitted to the [facility] floor with a consultation for interventional radiology [...] 77.6 H, Lymph % (Auto) 12.9 L, Posey % (Auto) 7.9, Eos % (Auto) 0.4, [...] 0RF (DME) CPAP - Continuous Positive Airway Pressure([facility] INFORMATIONAL USE ONLY) Device See Rx Instructions [...] Multi Select Codes Visit Charges Visit Charges: 37149 Disch Hosp 05/28/25 1716 Cosigner Signature (if applicable): CC: Dr. Steffen Eisenberg MD; Dr. Edel Bullock, DO~ Signed [facility]08-29-2025 [facility] Progress note Author Garrett Hernandez [facility] Note Date/Time May 28, 2025 11 :48am [facility] Medical Records Department [address] [place] [address] Progress Note - Surgery 05/28/25 1144 MR#: [id number] Acct: [id number] Name: BARBY CABALLERO Rep #:[id number] : 1990 34 From: Garrett Hernandez MD PCP: Dr. Steffen Eisenberg MD Status:ADM IN Location: [place] IV994-8 Subjective Subjective Patient doing well today. Abdomen [...] 77.6 H, Lymph % (Auto) 12.9 L, Posey % (Auto) 7.9, Eos % (Auto) 0.4, [...] me in 1 to 2 weeks 05/28/25 6902 <Electronically signed by Garrett Hernandez MD> Cosigner Signature (if applicable): CC: ~ Signed [facility] Work Phone: 1(448) 955-274308-29-2025 Progress note Author Levon Sharmaine [facility] Note Date/Time May 28, 2025 10 :12am [facility] Medical Records Department [address] [place] [address] Progress Note - Infect Disease 05/28/25 1010 MR#: [id number] Acct: [id number] Name: BARBY CABALLERO Rep #:[id number] : 1990 34 From: Levon beck MD PCP: Dr. Steffen Eisenberg MD Status:ADM IN Location: [place] OU477-8 Physical Exam Narrative Feeling better, no fever, [...] gave her my card, d/w nursing and patient case manager 05/28/25 1012 <Electronically signed by Levon Schmid MD> Cosigner Signature (if applicable): CC: ~ Signed [facility] Work Phone: 1(568) 213-723408-29-2025 Progress note [facility] Medical Records Department [address] [place] [address] Progress Note - Surgery 05/28/25 1144 MR#: [id number] Acct: [id number] Name: TIA CABALLERONNA EDWINA Rep #:[id number] : 1990 34 From: Garrett Hernandez MD PCP: Dr. Steffen Eisenberg MD Status:ADM IN Location: [place] IH339-3 Subjective Subjective Patient doing well today. Abdomen [...] 77.6 H, Lymph % (Auto) 12.9 L, Posey % (Auto) 7.9, Eos % (Auto) 0.4, [...] me in 1 to 2 weeks 05/28/25 1627 Cosigner Signature (if applicable): CC: ~ Signed [facility]08-29-2025 Progress note [facility] Medical Records Department [address] [place] [address] Progress Note - Infect Disease 05/28/25 1010 MR#: [id number] Acct: [id number] Name: BARBY CABALLERO Rep #:[id number] : 1990 34 From: Levon beck MD PCP: Dr. Steffen Eisenberg MD Status:ADM IN Location: [place] NS594-0 Physical Exam Narrative Feeling better, no fever, [...] Now on zosyn. Aspiration cx now with morgannichole. Now s/p OR 05/27/[address] Hernandez [...] gave her my card, d/w nursing and patient case manager 05/28/25 1012 Cosigner Signature (if applicable): CC: ~ Signed [facility]08-29-2025 Progress note Author Edel Diehl [facility] Note Date/Time May 28, 2025 7: 59am [facility] Medical Records Department [address] [place] [address] Progress Note - OBGYN 05/28/25 0751 MR#: [id number] Acct: [id number] Name: BARBY CABALLERO Rep #:[id number] : 1990 34 From: Edel Bullock DO PCP: Dr. Steffen Eisenberg MD Status:ADM IN Location: [place] NY213-3 Subjective Subjective patient is sitting up in [...] H 99 Room Air 2 05/28/25 05:05/28/25 05:05/28/25 05:05/28/25 05:05/28/25 05:05/28/25 05:05/27/25 11:07 Oxygen Flow Rate (L/min) 2 [...] 1.1, APTT 35.9, Sodium 144, Potassium 3.3, [id number] H, Carbon Dioxide 18.5 L, Anion Gap [...] 77.6 H, Lymph % (Auto) 12.9 L, Posey % (Auto) 7.9, Eos % (Auto) 0.4, [...] Hypokalemia- resolved. Charges/Coding Visit Charges Inpatient E&M: 79350 Subs Hosp L2 05/28/25 075 <Electronically signed by Edel Bullock DO> Cosigner Signature (if applicable): CC: ~ Signed [facility] Work Phone: 1(530) 642-784108-29-2025 Progress note [facility] Medical Records Department [address] [facility] [place] [address] Progress Note - OBGYN 05/28/25750 MR#: [id number] Acct: [id number] Name: BARBY CABALLERO Rep #:[id number] : 1990 34 From: Edel Bullock DO PCP: Dr. Steffen Eisenberg MD Status:ADM IN [facility] Subjective Subjective patient is sitting up in [...] Air 2 05/28/25 05:25 05/28/25 05:25 05/28/25 05:05/28/25 05:25 05/28/25 05:25 05/28/25 05:25 05/27/25 11:07 [...] 1.1, APTT 35.9, Sodium 144, Potassium 3.3, Kumskwhw536 H, Carbon Dioxide 18.5 L, Anion Gap [...] 77.6 H, Lymph % (Auto) 12.9 L, Posey % (Auto) 7.9, Eos % (Auto) 0.4, [...] Hypokalemia- resolved. Charges/Coding Visit Charges Inpatient E&M: 40592 Subs Hosp L2 05/28/25 2328 Cosigner Signature (if applicable): CC: ~ Signed [facility]08-29-2025 Progress note Author Apple Lao [facility] Note Date/Time May 28, 2025 12 :36am [facility] Medical Records Department [address] [place] [address] Progress Note - OBGYN 05/27/25 1518 MR#: [id number] Acct: [id number] Name: BARBY CABALLERO Rep #:[id number] : 1990 34 From: Apple fuentes MD PCP: Dr. Steffen Eisenberg MD Status:ADM IN Location: [place] TZ651-2 Subjective Subjective Patient feeling tired but comfortable [...] 84.6 H, Lymph % (Auto) 7.9 L, Posey % (Auto) 6.1, Eos % (Auto) 0.8, [...] (Auto) 80.3 H, Lymph % (Auto)10.3 L, Posey % (Auto) 6.9, Eos % (Auto) 1.6, [...] measures 12.4 cm 3.4 cm. Reading Location: [id number] Physical Exam Const alert, oriented x3 and [...] Cosigner Signature (if applicable): CC: ~ Signed [facility] Work Phone: 1(539) 811-263808-29-2025 Progress note [facility] Medical Records Department [address] [place] [address] Progress Note - OBGYN 05/27/25 1518 MR#: [id number] Acct: [id number] Name: BARBY CABALLERO Rep #:[id number] : 1990 34 From: Apple fuentes MD PCP: Dr. Steffen Eisenberg MD Status:ADM IN [facility] Subjective Subjective Patient feeling tired but comfortable [...] 84.6 H, Lymph % (Auto) 7.9 L, Posey % (Auto) 6.1, Eos % (Auto) 0.8, [...] (Auto) 80.3 H, Lymph % (Auto)10.3 L, Posey % (Auto) 6.9, Eos % (Auto) 1.6, [...] measures 12.4 cm 3.4 cm. Reading Location: [facility] Physical Exam Const alert, oriented x3 and no apparent distress GI GI Narrative: Bandage intact no saturation Assessment & Plan (1) Subcutaneous abscess: (2) Postoperative fever: (3) Tachycardia: (4) S/P : (5) Soft tissue abscess: PLAN: Plan Appreciate wound evacuation by general surgery, consult for wound VAC tomorrow. Appreciate ID consult. Continue SCDs. 05/28/25 0036 Cosigner Signature (if applicable): CC: ~ Signed [facility]08-28-2025 Consult note Author Patricia Gusman [facility] Note Date/Time May 27, 2025 1: 49pm [facility] Medical Records Department [address] [place] [address] Anesthesia Postop Eval II 05/27/25 1349 MR#: [id number] Acct: [id number] Name: BARBY CABALLERO Rep #:[id number] : 1990 34 From: Patricia raymond POWERBUILDER PCP: Dr. Steffen Eisenberg MD Status:ADM IN Y Race: C Location: [facility] MS304 -1 Anesthesia Postop Eval I Sum Postop Eval Completion status Anesthesia document: Postop Eval 1 completed: Yes Anesthesia Postop Eval I Summary Anesthesia Postop Eval I Summary: Anesthesia Postop Eval I: Assessment Summary Airway patent Yes 05/27/25 08:37 [email or web address] Spontaneous unlabored Yes 05/27/25 08:37 [email or web address] respirations Mental status Awake,Calm 05/27/25 08:37 [email or web address] nausea No 05/27/25 08:37 [email or web address] Vomiting No 05/27/25 08:37 [email or web address] Anesthesia Postop Eval I: Fluid Summary Crystalloid volume administer 700 05/27/25 08:37 [email or web address] (ml) Colloids volume administered ( ml) Blood Product volume administered (ml) Total IV fluid infused 700 05/27/25 08:37 [email or web address] Anesthesia Postop Eval I: Summary Notes Anesthesia Complication No 05/27/25 08:37 [email or web address] Anesthesia Complication Comment: Post-operative progress note Anesthesia: Postop Eval II Evaluation Mental status: Awake and Calm Pain Level: 0 nausea: No Vomiting: No Complications Anesthesia Complication: No 05/27/25 1349 <Electronically signed by Patricia salas CRNA> Date _ Patricia Gusman CRNA Cosigner Signature: Date CC: ~ Signed [facility] Work Phone: 1([phone]) 214-748008-28-2025 Consult note [facility] Medical Records Department [address] [place] [address] Anesthesia Postop Eval II 05/27/25 1349 MR#: [id number] Acct: [id number] Name: TORRI CABALLEROA EDWINA Rep #:[id number] : 1990 34 From: Patricia raymond POWERBUILDER PCP: Dr. Steffen Eisenberg MD Status:ADM IN Y Race: C Location: [place] [address] -1 Anesthesia Postop Eval I Sum Postop Eval Completion status Anesthesia document: Postop Eval 1 completed: Yes Anesthesia Postop Eval I Summary Anesthesia Postop Eval I Summary: Anesthesia Postop Eval I: Assessment Summary Airway patent Yes 05/27/25 08:37 [email or web address] Spontaneous unlabored Yes 05/27/25 08:37 [email or web address] respirations Mental status Awake,Calm 05/27/25 08:37 [email or web address] nausea No 05/27/25 08:37 [email or web address] Vomiting No 05/27/25 08:37 [email or web address] Anesthesia Postop Eval I: Fluid Summary Crystalloid volume administer 700 05/27/25 08:37 [email or web address] (ml) Colloids volume administered ( ml) Blood Product volume administered (ml) Total IV fluid infused 700 05/27/25 08:37 [email or web address] Anesthesia Postop Eval I: Summary Notes Anesthesia Complication No 05/27/25 08:37 [email or web address] Anesthesia Complication Comment: Post-operative progress note Anesthesia: Postop Eval II Evaluation Mental status: Awake and Calm Pain Level: 0 nausea: No Vomiting: No Complications Anesthesia Complication: No 05/27/25 1349 [email or web address]> Date _ Patricia Gusman POWERBUILDER Cosigner Signature: Date CC: ~ Signed [facility]08-28-2025 Consult note Author Levon Schmid [facility] Note Date/Time May 27, 2025 10 :10am [facility] Medical Records Department [address] [place] [address] Consultation - Infectious Dx 05/27/25 1002 MR#: [id number] Acct: [id number] Name: BARBY CABALLERO Rep #:[id number] : 1990 34 From: Levon beck MD PCP: Dr. Steffen Eisenberg MD Status:ADM IN Location: [place] SG770-0 Assessment & Plan Assessment/Plan (1) Subcutaneous abscess: [...] performed and neg except as noted above. [facility] Medical History PCOS (polycystic ovarian syndrome) [...] 1 current occupational status: unemployed current occupation: [employer] current occupational exposures/hazards: No pets and [...] physical activity do you participate in: none landon/yazidism: None seatbelt use: always do you feel safe at home: Yes additional social history: : Ravi [employer] (works from home) Physical Exam Const alert, [...] 84.6 H, Lymph % (Auto) 7.9 L, Posey % (Auto) 6.1, Eos % (Auto) 0.8, [...] (Auto) 80.3 H, Lymph % (Auto)10.3 L, Posey % (Auto) 6.9, Eos % (Auto) 1.6, [...] measures 12.4 cm 3.4 cm. Reading Location: [id number] 05/27/25 1010 <Electronically signed by Levon Schmid MD> Cosigner Signature (if applicable): CC: Dr. Steffen Eisenberg MD~ Signed [facility] Work Phone: 1([phone]) 625-793908-28-2025 Consult note Author Jeremy Clement [facility] Note Date/Time May 27, 2025 8: 37am [facility] Medical Records Department [address] [place] [address] Anesthesia Postop Eval I 05/27/25 0836 MR#: [id number] Acct: [id number] Name: BARBY CABALLERO Rep #:[id number] : 1990 34 From: Jeremy Clement CRNA PCP: Dr. Steffen Eisenberg MD Status:ADM IN Y Race: C Location: [place] [address] Anesthesia: Postop Eval I Current Vital Signs [...] CRNA Cosigner Signature: Date CC: ~ Signed [facility] Work Phone: 1(433) 394-853008-28-2025 Consult note [facility] Medical Records Department [address] [place] [address] Consultation - Infectious Dx 05/27/25 1002 MR#: [id number] Acct: [id number] Name: BARBY CABALLERO Rep #:[id number] : 1990 34 From: Levon beck MD PCP: Dr. Steffen Eisenberg MD Status:ADM IN Location: MS3 VX518-1 Assessment & Plan Assessment/Plan (1) Subcutaneous abscess: [...] performed and neg except as noted above. [facility] Medical History PCOS (polycystic ovarian syndrome) [...] 1 current occupational status: unemployed current occupation: [employer] current occupational exposures/hazards: No pets and [...] physical activity do you participate in: none landon/yazidism: None seatbelt use: always do you feel safe at home: Yes additional social history: : Ravi [employer] (works from home) Physical Exam Const alert, [...] 84.6 H, Lymph % (Auto) 7.9 L, Posey % (Auto) 6.1, Eos % (Auto) 0.8, [...] (Auto) 80.3 H, Lymph % (Auto)10.3 L, Posey % (Auto) 6.9, Eos % (Auto) 1.6, [...] measures 12.4 cm 3.4 cm. Reading Location: [id number] 05/27/25 1010 Cosigner Signature (if applicable): CC: Dr. Steffen Eisenberg MD~ Signed [facility]08-28-2025 Consult note Author Garrett Hernandez [facility] Note Date/Time May 27, 2025 7: 36am [facility] Medical Records Department [address] [place] [address] Consultation - Surgical 05/27/25 0730 MR#: [id number] Acct: [id number] Name: BARBY CABALLERO Rep #:[id number] : 1990 34 From: Garrett Hernandez MD PCP: Dr. Steffen Eisenberg MD Status:ADM IN Location: [facility] JV806-6 Assessment & Plan Assessment/Plan (1) Subcutaneous abscess: [...] next few days as the wound becomes leather cleaner. Surgery will begin momentarily HPI Consult [...] drainage. I was contacted by the patient's EMISSIONS TESTING AND REPAIR TECHNICIAN physician in order to set up a surgery to drain this fluid collection. We discussed the details of the planned procedure with the patient and she wishes to proceed. [facility] Medical History (Updated 05/24/25 @ 19:15 [...] 1 current occupational status: unemployed current occupation: [employer] current occupational exposures/hazards: No pets and [...] physical activity do you participate in: none landon/yazidism: None seatbelt use: always do you feel safe at home: Yes additional social history: : [employer] (works from home) Physical Exam Narrative She [...] 84.6 H, Lymph % (Auto) 7.9 L, Posey % (Auto) 6.1, Eos % (Auto) 0.8, [...] (Auto) 80.3 H, Lymph % (Auto)10.3 L, Posey % (Auto) 6.9, Eos % (Auto) 1.6, [...] 12.4 cm 3.4 cm. Reading Location: [facility] Charges/Coding Visit Charges Inpatient E&M: 57038 Init Hosp L3 05/27/25 0736 <Electronically signed by Garrett Hernandez MD> Cosigner Signature (if applicable): CC: Dr. Steffen Eisenberg MD~ Signed [facility] Work Phone: 1(669) 119-336108-28-2025 Consult note Author Patricia Gusman [facility] Note Date/Time May 27, 2025 7: 31am [facility] Medical Records Department [address] [place] [address] Pre-Anesthesia Evaluation 05/27/25 0724 MR#: [id number] Acct: [id number] Name: BARBY CABALLERO Rep #:[id number] : 1990 34 From: Patricia raymond POWERBUILDER PCP: Dr. Steffen Eisenberg MD Status:ADM IN Y Race: C Location: NM3 MS304 -1 ASA Classification* ASA Classification ASA [...] wall abscess Anesthesia History Anesthesia History - senior java ui developer: Anesthesia History - senior java ui developer Hx Hospitalization Any Problems With Anesthesia No [...] take am of surgery PONV PONV - senior java ui developer: PONV - senior java ui developer Female HX of Motion Sickness HX of N/V After Surgery Non-Smoker Duration of Surgery greater than 60 minutes Number of Risk Factors PONV Score Height & Weight Height & Weight: Anesthesia: Height & Weight Height 5 ft 2 in 05/27/25 06:07 Weight: 117.1 kg 05/27/25 06:07 Body Mass Index (BMI) 47.2 05/27/25 06:07 Respiratory Assessment Respiratory Assessment - senior java ui developer: Respiratory Tract Infection Hx - senior java ui developer Hx Respiratory Tract Infection No 05/26/25 20:15 STOP Sleep Apnea STOP Sleep Apnea - senior java ui developer: STOP Sleep Apnea - senior java ui developer Hx Hypertension No 05/24/25 20:14 Hx Sleep [...] Tobacco Use History Tobacco Use History - senior java ui developer: Tobacco Use History - senior java ui developer Tobacco Use Smoking Status Former smoker 05/24/25 20:14 Hx Tobacco Use No 05/24/25 20:14 Years Smoking Packs Smoked per Day Smoking Cessation Date was No - quit smoking greater 05/24/25 20:14 within the last 15 years than 15 years ago Hx Smoking Cessation Date Hx Smoking Cessation Counseling Hematologic Medial History Hematologic Hx - senior java ui developer: 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 Pee Sargent, ) H/O successful vaginal after , currently H/O section History of surgical procedure S/P cholecystectomy S/P S/P wisdom tooth extraction Social History adopted: No household members: spouse and children housing: house number of children: 1 current occupational status: unemployed current occupation: [employer] current occupational exposures/hazards: No pets and [...] physical activity do you participate in: none landon/yazidism: None seatbelt use: always do you feel safe at home: Yes additional social history: : [employer] (works from home) Review of Systems (Anesthesia) ROS Narrative System reviewed and no additional complaints, except as documented. 05/27/25 0731 <Electronically signed by Patricia salas CRNA> Date _ Patricia Gusman CRNA Cosigner Signature: Date CC: ~ Signed [facility] Work Phone: 1(750) 456-892608-28-2025 Procedure note [facility] Medical Records Department [address] [facility] [place] [address] Operative Report 05/27/25 0837 MR#: [id number] Acct: [id number] Name: MERCEDESKiranBARBYVICKI HOPE Rep #:[id number] : 1990 34 From: Garrett Hernandez MD PCP: Dr. Steffen Eisenberg MD Status:ADM IN Location: [facility] [id number] Procedures Integumentary 10xxx: 64049 Complex drainage wound Operative Report (Standard) Operative Information Date of Procedure: 05/27/25 Pre-Operative Diagnosis: Abdominal wall abscess Post-Operative Diagnosis: Same Surgery/Procedure Performed: Incision and drainage of abdominal wall abscess drag seiner: Yes Polishing Wheel Repairer: Alexandra Huston Tasks completed by director of first impressions: Retracting Additional assistant track and field coach?: No Type of Anesthesia: General and Local [...] SCD's VTE Pharm Prophylaxis ordered?: Yes 05/27/25 0847 Cosigner Signature (if applicable): CC: Dr. Steffen Eisenberg MD; Dr. Edel Bullock DO; Dr. Levon Schmid MD; Dr. Garrett Hernandez MD~ Signed [facility]08-28-2025 Consult note [facility] Medical Records Department [address] [place] [address] Anesthesia Postop Eval I 05/27/25 0836 MR#: [id number] Acct: [id number] Name: BARBY CABALLERO Rep #:[id number] : 1990 34 From: Jeremy Clement CRNA PCP: Dr. Steffen Eisenberg MD Status:ADM IN Y Race: C Location: [place] [address] Anesthesia: Postop Eval I Current Vital Signs [...] Postop Eval 1 completed: Yes 05/27/25 0837 y POWERBUILDER> Date _ Jeremy Clement POWERBUILDER Cosigner Signature: Date CC: ~ Signed [facility]08-28-2025 Consult note [facility] Medical Records Department [address] [place] [address] Consultation - Surgical 05/27/25 0730 MR#: [id number] Acct: [id number] Name: BARBY CABALLERO Rep #:[id number] : 1990 34 From: Garrett Hernandez MD PCP: Dr. Steffen Eisenberg MD Status:ADM IN Location: [facility] DO792-7 Assessment & Plan Assessment/Plan (1) Subcutaneous abscess: [...] next few days as the wound becomes leather cleaner. Surgery will begin momentarily HPI Consult [...] drainage. I was contacted by the patient's EMISSIONS TESTING AND REPAIR TECHNICIAN physician in order to set up a surgery to drain this fluid collection. We discussed the details of the planned procedure with the patient and she wishes to proceed. [facility] Medical History (Updated 05/24/25 @ 19:15 [...] 1 current occupational status: unemployed current occupation: [employer] current occupational exposures/hazards: No pets and [...] physical activity do you participate in: none landon/yazidism: None seatbelt use: always do you feel safe at home: Yes additional social history: : [employer] (works from home) Physical Exam Narrative She [...] 84.6 H, Lymph % (Auto) 7.9 L, Posey % (Auto) 6.1, Eos % (Auto) 0.8, [...] (Auto) 80.3 H, Lymph % (Auto)10.3 L, Posey % (Auto) 6.9, Eos % (Auto) 1.6, [...] measures 12.4 cm 3.4 cm. Reading Location: [id number] Charges/Coding Visit Charges Inpatient E&M: 78029 Init Hosp L3 05/27/25 0736 Cosigner Signature (if applicable): CC: Dr. Steffen Eisenberg MD~ Signed [facility]08-28-2025 Consult note [facility] Medical Records Department [address] [facility] [place] [address] Pre-Anesthesia Evaluation 05/27/25 0724 MR#: [id number] Acct: [id number] Name: TORRI CABALLEROA EDWINA Rep #:[id number] : 1990 34 From: Patricia raymond CRNA PCP: Dr. Steffen Eisneberg MD Status:ADM IN Y Race: C Location: [facility] [facility] MS304 -1 ASA Classification* ASA Classification ASA [...] wall abscess Anesthesia History Anesthesia History - senior java ui developer: Anesthesia History - senior java ui developer Hx Hospitalization Any Problems With Anesthesia No [...] take am of surgery PONV PONV - senior java ui developer: PONV - senior java ui developer Female HX of Motion Sickness HX of N/V After Surgery Non-Smoker Duration of Surgery greater than 60 minutes Number of Risk Factors PONV Score Height & Weight Height & Weight: Anesthesia: Height & Weight Height 5 ft 2 in 05/27/25 06:07 Weight: 117.1 kg 05/27/25 06:07 Body Mass Index (BMI) 47.2 05/27/25 06:07 Respiratory Assessment Respiratory Assessment - senior java ui developer: Respiratory Tract Infection Hx - senior java ui developer Hx Respiratory Tract Infection No 05/26/25 20:15 STOP Sleep Apnea STOP Sleep Apnea - senior java ui developer: STOP Sleep Apnea - senior java ui developer Hx Hypertension No 05/24/25 20:14 Hx Sleep [...] Tobacco Use History Tobacco Use History - senior java ui developer: Tobacco Use History - senior java ui developer Tobacco Use Smoking Status Former smoker 05/24/25 20:14 Hx Tobacco Use No 05/24/25 20:14 Years Smoking Packs Smoked per Day Smoking Cessation Date was No - quit smoking greater 05/24/25 20:14 within the last 15 years than 15 years ago Hx Smoking Cessation Date Hx Smoking Cessation Counseling Hematologic Medial History Hematologic Hx - senior java ui developer: 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 current occupational exposures/hazards: No pets and [...] physical activity do you participate in: none landon/yazidism: None seatbelt use: always do you feel safe at home: Yes additional social history: : 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) Review of Systems (Anesthesia) ROS Narrative System reviewed and no additional complaints, except as documented. 05/27/25 0731 maritza POWERBUILDER> Date _ Patricia Gusman POWERBUILDER Cosigner Signature: Date CC: ~ Signed [facility]08-28-2025 Progress note Author Edel Diehl [facility] Note Date/Time May 27, 2025 12 :47am [facility] Medical Records Department [address] [place] [address] Progress Note 05/27/25 0038 MR#: [id number] Acct: [id number] Name: BARBY CABALLERO Rep #:[id number] : 1990 34 From: Edel Bullock DO PCP: Dr. Steffen Eisenberg MD Status:ADM IN Location: [place] [address]-1 Progress Note late entry note: Nurse called [...] at 6 pm. NPO after 11 pm 05/27/2546 <Electronically signed by Edel Bullock DO> Edel Bullock DO Cosigner Signature (if applicable): CC: ~ Signed [facility] Work Phone: 1(994) 998-804308-28-2025 Progress note [facility] Medical Records Department [address] [place] [address] Progress Note 05/27/2537 MR#: [id number] Acct: [id number] Name: BARBY CABALLERO Rep #:[id number] : 1990 34 From: Edel Bullock DO PCP: Dr. Steffen Eisenberg MD Status:ADM IN Location: [facility] [place] RO546-2 Progress Note late entry note: Nurse called [...] NPO after 11 pm 05/27/25 0047 Edel Cabrera Signature (if applicable): CC: ~ Signed [facility]08-27-2025 Consult note Author Cee Chery [facility] Note Date/Time May 26, 2025 8: 17pm [facility] Medical Records Department [address] [place] [address] Pharmacokinetic/Renal -Consult 05/26/252016 MR#: [id number] Acct: [id number] Name: MERCEDESTORRI BeckA EDWINA Rep #:[id number] : 1990 34 From: Cee Chery PCP: Dr. Steffen Eisenberg MD Status:ADM IN Location: [place] [address] Consult Antibiotic Management Pharmacy has been consulted [...] and adjust dosing as required. 05/26/25 2017 <Electronically signed by Cee Chery > Date _ Cee Chery Cosigner Signature (if applicable): Date CC: ~ Signed [facility] Work Phone: 1(294) 899-622408-27-2025 Consult note [facility] Medical Records Department [address] [place] [address] Pharmacokinetic/Renal -Consult 05/26/252016 MR#: [id number] Acct: [id number] Name: BARBY CABALLERO Rep #:[id number] : 1990 34 From: Cee Chery PCP: Dr. Steffen Eisenberg MD Status:ADM IN Y Location: [facility] RC105-2 Consult Antibiotic Management Pharmacy has been consulted [...] of 2g IV x1 ordered and administered 8/27 @1958 Vancomycin Dose: 1500mg IV Q8h to start 05/27/25 @0400 Pending Level: 05/27/25 @1930, prior to 4th total dose of vancomycin per protocol Pharmacy Service will continue to monitor and adjust dosing as required. 05/26/25 2017 > Date _ Cee Regula Cosigner Signature (if applicable): Date CC: ~ Signed [facility]08-27-2025 Radiology Diagnostic study note [facility] Imaging Services [address] [place] [id number] Abdomen/Pelvis without Cont MR#: [id number] Acct: [id number] Name: BARBY CABALLERO Rep #: [id number] : 1990 F 34 From: Sloan Padron MD PCP: Dr. Steffen Eisenberg MD Status: ADM IN Study:Abdomen/Pelvis without Cont Date of Exa m: 05/26/25 Exam# [id number] Ordering Dr: Edel Rowley DO PROCEDURE: ABDOMEN/PELVIS [...] measures 12.4 cm 3.4 cm. Reading Location: [id number] CC: Dr. Steffen Eisenberg MD; Dr. Edel Bullock DO ~ Taker Down: Signed [facility]08-27-2025 Progress note Author Edel Diehl [facility] Note Date/Time May 26, 2025 8: 30am [facility] Medical Records Department [address] [place] [address] Progress Note - OBGYN 05/26/25 0818 MR#: [id number] Acct: [id number] Name: BARBY CABALLERO Rep #:[id number] : 1990 34 From: Edel Bullock DO PCP: Dr. Steffen Eisenberg MD Status:ADM IN Location: MS3 KI735-1 Subjective Subjective patient is in bed and [...] (Auto) 80.2 H, Lymph % (Auto) 10.7L, Posey % (Auto) 7.0, Eos % (Auto) 1.3, [...] fluid collection. Laboratory results pending. Reading Location: [address] Constitutional Constitutional: Reports fatigue, fever(s), headache(s) [...] Multi Select Codes Visit Charges Visit Charges: 59876 Subs Hosp L2 05/26/25829 <Electronically signed by Edel Bullock DO> Cosigner Signature (if applicable): CC: ~ Signed [facility] Work Phone: 1(189) 279-630708-27-2025 Progress note [facility] Medical Records Department [address] [place] [address] Progress Note - OBGYN 05/26/25817 MR#: [id number] Acct: [id number] Name: BARBY CABALLERO Rep #:[id number] : 1990 34 From: Edel Bullock DO PCP: Dr. Steffen Eisenberg MD Status:ADM IN Location: NM3 GN179-9 Subjective Subjective patient is in bed and [...] (Auto) 80.2 H, Lymph % (Auto) 10.7L, Posey % (Auto) 7.0, Eos % (Auto) 1.3, [...] fluid collection. Laboratory results pending. Reading Location: [address] Constitutional Constitutional: Reports fatigue, fever(s), headache(s) [...] Multi Select Codes Visit Charges Visit Charges: 44056 Subs Hosp L2 05/26/25 0830 Cosigner Signature (if applicable): CC: ~ Signed [facility]08-26-2025 Radiology Diagnostic study note [facility] Imaging Services [address] [place] [address] Biopsy/Inj or Needle Placement MR#: [id number] Acct: [id number] Name: BARBY CABALLERO Rep #: [id number] : 1990 F 34 From: Wellington Mccormick MD PCP: Dr. Steffen Eisenberg MD Status: ADM IN Study:Biopsy/Inj or Needle Placement Date of Exam: 05/25/25 Exam# [id number] Ordering Dr: Edel Rowley DO EXAM: CT-guided [...] by placement of a 10 cm 5 Mongolian Yueh catheter under CT guidance. Approximately 146 [...] fluid collection. Laboratory results pending. Reading Location: [place] [address] CC: Dr. Steffen Eisenberg MD; Dr. Edel Bullock DO ~ Taker Down: Signed [facility]08-26-2025 Progress note Author Edel Diehl [facility] Note Date/Time May 25, 2025 7: 45am [facility] Medical Records Department [address] [place] [address] Progress Note - OBGYN 05/25/25 0740 MR#: [id number] Acct: [id number] Name: BARBY CABALLERO Rep #:[id number] : 1990 34 From: Edel Bullock DO PCP: Dr. Steffen Eisenberg MD Status:ADM IN Location: MS3 IW320-1 Subjective Subjective patient is standing at bedside. [...] 89.0 H, Lymph % (Auto) 4.1 L, Posey % (Auto) 5.7, Eos % (Auto) 0.4, [...] Clarity Clear, Urine pH 7.0, Ur Specific [place] 1.005, Urine Protein 15 H, Urine Glucose [...] 87.0 H, Lymph % (Auto) 5.2 L, Posey % (Auto) 6.7, Eos % (Auto) 0.1, [...] 84.7 H, Lymph % (Auto) 7.7 L, Posey % (Auto) 6.5, Eos % (Auto) 0.1, [...] although endometritis not entirely excluded. Reading Location: [facility] Chest CTA 05/24/25 15:20 IMPRESSION: No evidence of pulmonary embolism. Reading Location: [address] Constitutional Constitutional: Reports fatigue, fever(s), headache(s) [...] next step Charges/Coding Visit Charges Inpatient E&M: 24772 Subs Hosp L3 05/25/25 0761 <Electronically signed by Edel Bullock DO> Cosigner Signature (if applicable): CC: ~ Signed [facility] Work Phone: 1(319) 624-137108-26-2025 Progress note [facility] Medical Records Department [address] [place] [address] Progress Note - OBGYN 05/25/2540 MR#: [id number] Acct: [id number] Name: BARBY CABALLERO Rep #:[id number] : 1990 34 From: Edel Bullock DO PCP: Dr. Steffen Eisenberg MD Status:ADM IN Location: MS3 JX716-9 Subjective Subjective patient is standing at bedside. [...] 89.0 H, Lymph % (Auto) 4.1 L, Posey % (Auto) 5.7, Eos % (Auto) 0.4, [...] Clarity Clear, Urine pH 7.0, Ur Specific [place] 1.005, Urine Protein 15 H, Urine Glucose [...] 87.0 H, Lymph % (Auto) 5.2 L, Posey % (Auto) 6.7, Eos % (Auto) 0.1, [...] 84.7 H, Lymph % (Auto) 7.7 L, Posey % (Auto) 6.5, Eos % (Auto) 0.1, [...] / although endometritis not entirelyexcluded. Reading Location: [facility] Chest CTA 05/24/25 15:20 IMPRESSION: No evidence of pulmonary embolism. Reading Location: [address] Constitutional Constitutional: Reports fatigue, fever(s), headache(s) [...] appears to be sinus tachycardia considering consulting for assistance if opening her up in the OR is the next step Charges/Coding Visit Charges Inpatient E&M: 13081 Subs Hosp L3 05/25/25 0745 Cosigner Signature (if applicable): CC: ~ Signed [facility]08-25-2025 History and physical note Author Eedl Diehl [facility] Note Date/Time May 24, 2025 7: 22pm [facility] Medical Records Department [address] [place] [address] H&P Exam - EMISSIONS TESTING AND REPAIR TECHNICIAN 05/24/25 1905 MR#: [id number] Acct: [id number] Name: BARBY CABALLERO Rep #:[id number] : 1990 34 From: Edel Bullock DO PCP: Dr. Steffen Eisenberg MD Status:ADM IN Location: 3 VZ746-2 HPI - General General Date of Admission: 05/24/25 HPI Narrative BARBY CABALLERO, is a 34 y/o , status post section on 05/12/25, who presents to [facility] ER with fever up to 102 at [...] breast excretes clotted blood and feels sore. [facility] Medical History (Updated 05/24/25 @ 19:15 [...] (Updated 05/24/25 @ 18:[address] Pee Schwiger, DO) H/O successful vaginal after , currently H/O section History of surgical procedure S/P cholecystectomy S/P S/P wisdom tooth extraction Social History adopted: No household members: spouse and children housing: house number of children: 1 current occupational status: unemployed current occupation: [employer] current occupational exposures/hazards: No pets and [...] physical activity do you participate in: none landon/yazidism: None seatbelt use: always do you feel safe at home: Yes additional social history: : [employer] (works from home) History 2 Elective abortions Hx Para 2 Spontaneous abortions Hx # Term Pregnancies 2 Ectopic pregnancies Hx # Pregnancies Multiple births # of living children 2 Past Pregnancies Del. Date Name GA/Weeks Outcome Route Bth Weight Infant Gen Labor Lgth Anesthesia Del Locatn Provider FOB 07/18/21 Larry 40 live - full term 7lbs 7oz Male [facility] 05/12/25 39 live - full term Male sp inal [facility] [place] Delivery Date: 07/18/21 Last Updated [...] Multi Select Codes Visit Charges Visit Charges: 97007 Init Hosp L3 05/24/251921<Electronically signed by Edel Bullock DO> Cosigner Signature (if applicable): cc: Dr. Steffen Eisenberg MD; Dr. Edel Bullock DO ~* Signed [facility] Work Phone: 1([phone]) 671-421508-25-2025 Discharge summary Author Pee Sargent [facility] Note Date/Time May 24, 2025 6: 39pm [facility] Medical Records Department [address] [place] [address] Emergency Department Summary 05/24/25 MR#: [id number] Acct: [id number] Name: BARBY CABALLERO Rep #:[id number] : [...] 1 current occupational status: unemployed current occupation: [employer] current occupational exposures/hazards: No pets and [...] physical activity do you participate in: none landon/yazidism: None seatbelt use: always do you feel safe at home: Yes additional social history: : [employer] (works from home) EXAM Physical Exam Const [...] 89.0 H Lymph % (Auto) 4.1 L Posey % (Auto) 5.7 Eos % (Auto) 0.4 [...] Clarity Clear Urine pH 7.0 Ur Specific [place] 1.005 Urine Protein 15 H Urine Glucose [...] although endometritis not entirely excluded. Reading Location: [facility] Chest CTA 05/24/25 15:20 IMPRESSION: No evidence of pulmonary embolism. Reading Location: [place] [address] CT of the chest was obtained. There [...] asinus tachycardia with a rate of 147. NM interval, QRS interval, and QTc intervals were all normal. Start was normal. There are nonspecific ST-T wave changes. Prior EKG tracings: available for review Prior: Unchanged (11/10/2024) Treatment and Re-Evaluation :: Patient was given IV fluids and ibuprofen. Patient's heart rate improved from 168 to 121. Patient's temperature improved to 99.1. Patient was given a repeatbolus of normal saline. Patient was advised of her findings. Case was discussed with Kiley Jain from EMISSIONS [employer]ING AND REPAIR TECHNICIAN. She discussed the case with Dr. Damico [...] , Tachycardia Disposition Disposition: Acute Care Hospital [facility] What to do if you have Problems For any increased pain, shortness of breath, bleeding, nausea or vomiting, chestpain, or any unexpected problems, contact your Primary Care Provider. Call [facility] ([phone]) or report to the closest Emergency Room. Call 911 if necessary. 05/24/251838 <Electronically signed by Pee Sargent DO> Cosigner Signature (if applicable): CC: Dr. Steffen Eisenberg MD ~ Signed [facility] Work Phone: 1(611) 241-766608-25-2025 History and physical note [facility] Medical Records Department [address] [place] [address] H&P Exam - EMISSIONS TESTING AND REPAIR TECHNICIAN 05/24/25 1905 MR#: [id number] Acct: [id number] Name: BARBY CABALLERO Rep #:[id number] : 1990 34 From: Edel Bullock DO PCP: Dr. Steffen Eisenberg MD Status:ADM IN Location: [facility] FB229-9 HPI - General General Date of Admission: 05/24/25 HPI Narrative BARBY CABALLERO, is a 34 y/o , status post section on 05/12/25, who presents to [facility] ER with fever up to 102 at [...] breast excretes clotted blood and feels sore. [facility] Medical History (Updated 05/24/25 @ 19:15 [...] 1 current occupational status: unemployed current occupation: [employer] current occupational exposures/hazards: No pets and [...] physical activity do you participate in: none landon/yazidism: None seatbelt use: always do you feel safe at home: Yes additional social history: : [employer] (works from home) History 2 Elective abortions Hx Para 2 Spontaneous abortions Hx # Term Pregnancies 2 Ectopic pregnancies Hx # Pregnancies Multiple births # of living children 2 Past Pregnancies Del. Date Name GA/Weeks Outcome Route Bth Weight Gen Labor Lgth Anesthesia Del Locatn Provider FOB 07/18/21 Larry 40 live - full term 7lbs 7oz Male [facility] [place] 05/12/25 39 live - full term Male sp inal [facility] [place] Delivery Date: 07/18/21 Last Updated [...] Multi Select Codes Visit Charges Visit Charges: 18843 Init Hosp L3 05/24/251921 Cosigner Signature (if applicable): cc: Dr. Steffen Eisenberg MD; Dr. Edel Bullock DO ~* Signed [facility]08-25-2025 Discharge summary [facility] Medical Records Department [address] [place] [address] Emergency Department Summary 05/24/25 MR#: [id number] Acct: [id number] Name: BARBY CABALLERO Rep #:[id number] : [...] 1 current occupational status: unemployed current occupation: [employer] current occupational exposures/hazards: No pets and [...] physical activity do you participate in: none landon/yazidism: None seatbelt use: always do you feel safe at home: Yes additional social history: : Ravi [employer] (works from home) EXAM Physical Exam Const [...] 89.0 H Lymph % (Auto) 4.1 L Posey % (Auto) 5.7 Eos % (Auto) 0.4 [...] Clarity Clear Urine pH 7.0 Ur Specific [place] 1.005 Urine Protein 15 H Urine Glucose [...] / although endometritis not entirelyexcluded. Reading Location: [facility] Chest CTA 05/24/25 15:20 IMPRESSION: No evidence of pulmonary embolism. Reading Location: [place] [address] CT of the chest was obtained. There [...] asinus tachycardia with a rate of 147. NM interval, QRS interval, and QTc intervals were all normal. Start was normal. There arenonspecific ST-T wave changes. Prior EKG tracings: available for review Prior: Unchanged (11/10/2024) Treatment and Re-Evaluation :: Patient was given IV fluids and ibuprofen. Patient's heart rate improved from 168 to 121. Patient'stemperature improved to 99.1. Patient was given a repeatbolus of normal saline. Patient was advisedof her findings. Case was discussed with Kiley Jain from [employer]. She discussed the case with Dr. Damico [...] , Tachycardia Disposition Disposition: Acute Care Hospital [facility] What to do if you have Problems For any increased pain, shortness of breath, bleeding, nausea or vomiting, chestpain, or any unexpected problems, contact your Primary Care Provider. Call [facility] ([phone]) or report tothe closest Emergency Room. Call 911 if necessary. 05/24/25 1839 Cosigner Signature (if applicable): CC: Dr. Steffen Eisenberg MD ~ Signed [facility]08-25-2025 Radiology Diagnostic study note [facility] Imaging Services [address] [place], [place] [address] Abdomen/Pelvis W IV Cont ONLY MR#: [id number] Acct: [id number] Name: BARBY CABALLERO Rep #: [id number] : 1990 F 34 From: Annmarie Avilez MD PCP: Dr. Steffen Eisenberg MD Status: REG ER Study:Abdomen/Pelvis W IV Cont ONLY Date of E xam: 05/24/25 Exam# [id number] Ordering Dr: Pee Sargent DO PROCEDURE: ABDOMEN/PELVIS [...] / although endometritis not entirelyexcluded. Reading Location: [facility] CC: Dr. Steffen Eisenberg MD; Dr. Pee Sargent DO ~ Taker Down: Signed [facility]08-25-2025 Radiology Diagnostic study note [facility] Imaging Services [address] [place] [address] CTA Chest W/WO Contrast MR#: [id number] Acct: [id number] Name: BARBY CABALLERO Rep #: [id number] : 1990 F 34 From: Wellington Mccormick MD PCP: Dr. Steffen Eisenberg MD Status: REG ER Study:CTA Chest W/WO Contrast Date of Exam: 05/24/25 Exam# [id number] Ordering Dr: Pee Sargent DO PROCEDURE: CTA [...] No evidence of pulmonary embolism. Reading Location: [place] [address] CC: Dr. Steffen Eisenberg MD; Dr. Pee Sargent DO ~ Taker Down: Signed [facility]08-25-2025 Discharge summary Author Pee Sargent [facility] Note Date/Time May 24, 2025 6: 39pm [facility] Department [address] [place] [address] Emergency Department Summary 05/24/25 MR#: [id number] Acct: [id number] Name: BARBY CABALLERO Rep #:[id number] : 1990 34 From: Pee Staley PCP: Dr. Steffen Eisenberg MD Status:REG ER Location: ED HPI History of Present Illness Chief Complaint: Fever PFSH PFSH Medical History (Updated 05/24/25 @ 18:[address] Pee Sargent, DO) PCOS (polycystic ovarian syndrome) Infertility Depression [...] physical activity do you participate in: none landon/yazidism: None seatbelt use: always do you feel safe at home: Yes additional social history: : Ravi [employer] (works from home) EXAM Physical Exam Const [...] 89.0 H Lymph % (Auto) 4.1 L Posey % (Auto) 5.7 Eos % (Auto) 0.4 [...] Clarity Clear Urine pH 7.0 Ur Specific [place] 1.005 Urine Protein 15 H Urine Glucose [...] although endometritis not entirely excluded. Reading Location: [facility] Chest CTA 05/24/25 15:20 IMPRESSION: No evidence of pulmonary embolism. Reading Location: [place] [address] CT of the chest was obtained. There [...] asinus tachycardia with a rate of 147. NM interval, QRS interval, and QTc intervals were all normal. Start was normal. There are nonspecific ST-T wave changes. Prior EKG tracings: available for review Prior: Unchanged (11/10/2024) Treatment and Re-Evaluation :: Patient was given IV fluids and ibuprofen. Patient's heart rate improved from 168 to 121. Patient's temperature improved to 99.1. Patient was given a repeatbolus of normal saline. Patient was advised of her findings. Case was discussed with Kiley Jain from [employer]. She discussed the case with Dr. Damico [...] , Tachycardia Disposition Disposition: Acute Care Hospital [facility] What to do if you have Problems For any increased pain, shortness of breath, bleeding, nausea or vomiting, chestpain, or any unexpected problems, contact your Primary Care Provider. Call [facility] ([phone]) or report to the closest Emergency Room. Call 911 if necessary. 05/24/251838 <Electronically signed by Pee Sargent DO> Cosigner Signature (if applicable): CC: Dr. Steffen Eisenberg MD ~ Signed [facility] Work Phone: 1(584) 213-864308-16-2025 Progress note [facility] Medical Records Department [address] [place] [address] Progress Note - OBGYN 05/13/25 1812 MR#: [id number] Acct: [id number] Name: BARBY CABALLERO Rep #:[id number] : 1990 34 From: Apple fuentes MD PCP: Dr. Steffen Eisenberg MD Status:ADM IN Location: TI594-6 Subjective Subjective LATE ENTRY- patient seent at [...] 74.0 H, Lymph % (Auto) 17.1 L, Posey % (Auto) 6.6, Eos % (Auto) 0.9, [...] Cosigner Signature (if applicable): CC: ~ Signed [facility]08-16-2025 Discharge summary Author Mariana Jonas [facility] Note Date/Time May 15, 2025 12 :14pm [facility] Medical Records Department [address] [place] [address] Discharge Summary 05/15/2542 MR#: [id number] Acct: [id number] Name: BARBY CABALLERO Rep #:[id number] : 1990 34 From: Mariana Jonas [facility] PCP: Dr. Steffen Eisenberg MD Status:ADM IN Location: [id number] Providers Date of Admission: 05/12/25 Primary Care [...] Up With: Edel Bullock DO When: Call [phone] to make an appointment for an incision [...] NU Jonas; Dr. Steffen Eisenberg MD~ Signed [facility] Work Phone: [phone] Discharge summary [facility] Medical Records Department [address] [place] [address] Discharge Summary 05/15/25 0842 MR#: [id number] Acct: [id number] Name: BARBY CABALLERO Rep #:[id number] : 1990 34 From: Mariana Jonas CNM PCP: Dr. Steffen Eisenberg MD Status:ADM IN Location: XO556-8 Providers Date of Admission: 05/12/25 Primary Care [...] Up With: Edel Bullock DO When: Call [phone] to make an appointment for an incision [...] NU Jonas; Dr. Steffen Eisenberg MD~ Signed [facility]08-16-2025 Progress note Author Mariana Jonas [facility] Note Date/Time May 15, 2025 8: 42am [facility] Medical Records Department [address] [place] [address] Progress Note - OBGYN 05/15/25 0840 MR#: [id number] Acct: [id number] Name: BARBY CABALLERO Rep #:[id number] : 1990 34 From: Mariana Jonas CNM PCP: Dr. Steffen Eisenberg MD Status:ADM IN Location: [place] [address] Subjective Subjective Patient doing well without complaints. [...] and Output for Last 24 Hours 05/13/25 05/14/2525 23:59 23:59 23:59 Intake Total 1250 / [...] Cosigner Signature (if applicable): CC: ~ Signed [facility] Work Phone: 1(281) 662-383208-16-2025 [facility]08-16-2025 Progress note [facility] Medical Records Department [address] [place] [address] Progress Note - OBGYN 05/15/25 0840 MR#: [id number] Acct: [id number] Name: BARBY CABALLERO Rep #:[id number] : 1990 34 From: Mariana Jonas CNM PCP: Dr. Steffen Eisenberg MD Status:ADM IN Location: DJ169-3 Subjective Subjective Patient doing well without complaints. [...] Cosigner Signature (if applicable): CC: ~ Signed [facility]08-15-2025 Progress note Author Mariana Jonas [facility] Note Date/Time May 14, 2025 8: 30am [facility] Medical Records Department [address] [place] [address] Progress Note - OBGYN 05/14/25827 MR#: [id number] Acct: [id number] Name: BARBY CABALLERO Rep #:[id number] : 1990 34 From: Mariana Jonas CNM PCP: Dr. Steffen Eisenberg MD Status:ADM IN Location: [place] [address] Subjective Subjective Patient doing well without complaints. [...] Results - last 24 hr 05/12/25 : KleRadha F Hgb POSITIVE H 05/13/25 17:35: WBC 16.9 H, RBC 3.88 L, Hgb 11.5 L, Hct 33.9 L, MCV 87.4, MCH 29.6, MCHC 33.9, RDW Std Deviation 43.1, RDW Coeff of Tanner 13.6, Plt Count 299, MPV 9.7, Immature Gran % (Auto) 1.000 H, Neut % (Auto) 74.0 H, Lymph % (Auto) 17.1 L, Posey % (Auto) 6.6, Eos % (Auto) 0.9, [...] Cosigner Signature (if applicable): CC: ~ Signed [facility] Work Phone: 1(486) 684-452608-15-2025 Progress note [facility] Medical Records Department [address] [place] [address] Progress Note - OBGYN 05/14/25 08 MR#: [id number] Acct: [id number] Name: BARBY CABALLERO Rep #:[id number] : 1990 34 From: Mariana Jonas CNM PCP: Dr. Steffen Eisenberg MD Status:ADM IN Location: SH449-0 Subjective Subjective Patient doing well without complaints. [...] 74.0 H, Lymph % (Auto) 17.1 L, Posey % (Auto) 6.6, Eos % (Auto) 0.9, [...] Cosigner Signature (if applicable): CC: ~ Signed [facility]08-14-2025 Progress note Author Apple Lao [facility] Note Date/Time May 15, 2025 2: 25pm [facility] Medical Records Department [address] [place] [address] Progress Note - OBGYN 05/13/25 181 MR#: [id number] Acct: [id number] Name: BARBY CABALLERO Rep #:[id number] : 1990 34 From: Apple fuentes MD PCP: Dr. Steffen Eisenberg MD Status:ADM [facility] Subjective Subjective LATE ENTRY- patient seent at [...] 74.0 H, Lymph % (Auto) 17.1 L, Posey % (Auto) 6.6, Eos % (Auto) 0.9, [...] Cosigner Signature (if applicable): CC: ~ Signed [facility] Work Phone: [phone]) 681-843708-14-2025 Progress note Author Apple Lao [facility] Note Date/Time May 13, 2025 6: 08pm [facility] Medical Records Department [address] [facility] [place] [address] Progress Note 05/13/251806 MR#: [id number] Acct: [id number] Name: BARBY CABALLERO Rep #:[id number] : 1990 34 From: Apple fuentes MD PCP: Dr. Steffen Eisenberg MD Status:ADM IN Location: [place] [address] Progress Note Patient evaluated due to passing [...] Cosigner Signature (if applicable): CC: ~ Signed [facility] Work Phone: 1(634) 698-462508-14-2025 Progress note [facility] Medical Records Department [address] [place] [address] Progress Note 05/13/251806 MR#: [id number] Acct: [id number] Name: BARBY CABALLERO Rep #:[id number] : 1990 34 From: Apple fuentes MD PCP: Dr. Steffen Eisenberg MD Status:ADM IN Location: [place] [address] Progress Note Patient evaluated due to passing [...] Cosigner Signature (if applicable): CC: ~ Signed [facility]08-13-2025 Procedure note [facility] Medical Records Department [address] [place] [address] Operative Report 05/12/25 0920 MR#: [id number] Acct: [id number] Name: BARBY CABALLERO Rep #:[id number] : 1990 34 From: Edel Bullock DO PCP: Dr. Steffen Eisenberg MD Status:ADM IN Location: AE716-6 Assessment & Plan (1) GBS (group B [...] pregnancies are desired. Surgical findings: viable male infant. name undecided. Presentation: Vertex Amniotic Membrane Rupture Type: Artificial Amniotic Fluid Description: Clear Placental Delivery Description: Expressed Placenta Disposition: [facility] Specimen collected: No Cord Vessel Description: 3 Vessels Cord Entanglement: None Infant A gender: Male (1 minute): 8 (5 minute): 9 Delayed Cord Clamping: Yes Apron Trimmer drag seiner: Yes Polishing Wheel Repairer: Mark Jauregui Tasks completed by director of first impressions: Closing and Retracting Additional assistant track and field coach?: No Complications Complications: No Multi Select Codes Urinary/Genital Urinary/Genital CPT Codes: 87481 Delivery [facility] 05/12/25 0926 Cosigner Signature (if applicable): CC: Dr. Steffen Eisenberg MD; Dr. Edel Bullock DO~ Signed [facility]08-13-2025 Discharge summary Author Edel [facility] Note Date/Time May 12, 2025 7: 21am [facility] Medical Records Department [address] [place] [address] Instructions for Home/Discharge Instructions 05/12/25 0719 MR#: [id number] Acct: [id number] Name: TORRI CABALLEROA EDWINA Rep #:[id number] [...] Up With: Edel Bullock DO When: Call [phone] to make an appointment for an incision [...] Order can be placed): Home, Self Care 05/12/25720<Electronically signed by Edel Bullock DO>Edel Bullock DO CC: Dr. Steffen Eisenberg MD ~ Signed [facility] Work Phone: [phone] 583-793708-13-2025 History and physical note Author Edel Diehl [facility] Note Date/Time May 12, 2025 7: 16am [facility] Medical Records Department [address] [place] [address] H&P Exam - [employer]N[employer]IAN 05/12/25713 MR#: [id number] Acct: [id number] Name: BARBY CABALLERO Rep #:[id number] : 1990 34 From: Edel Bullock DO PCP: Dr. Steffen Eisenberg MD Status:ADM IN [facility] HPI - General General Date of Admission: 05/12/25 HPI Narrative * BARBY CABALLERO, is a 34 y/o @ 39 weeks 0 days who presents to L&D for a repeat section. Maternal Data Information ANTONIO Calculator Estimated Delivery Date Method Current WG Current Estimate 05/19/25 Conception 39w 0d PFSH [facility] Medical History PCOS (polycystic ovarian syndrome) [...] 1 current occupational status: unemployed current occupation: [employer] current occupational exposures/hazards: No pets and [...] physical activity do you participate in: none landon/yazidism: None seatbelt use: always do you feel safe at home: Yes additional social history: : [employer] (works from home) History 2 2 Elective abortions Hx Para 1 Spontaneous abortions Hx # Term Pregnancies 1 Ectopic pregnancies Hx # Pregnancies Multiple births # of living children 1 Past Pregnancies Del. Date Name GA/Weeks Outcome Route Bth Weight Infant Gen Labor Lgth Anesthesia Del Locatn Provider FOB 07/18/21 Larry 40 live - full term 7lbs 7oz Male [facility] [place] Delivery Date: 07/18/21 Last [...] Eisenberg MD; Dr. Edel Bullock DO~ Signed [facility] Work Phone: 1([phone]) 390-290708-13-2025 Discharge summary [facility] Medical Records Department [address] [place] [address] Instructions for Home/Discharge Instructions 05/12/25 0719 MR#: [id number] Acct: [id number] Name: BARBY CABALLERO Rep #:[id number] : [...] Up With: Edel Bullock DO When: Call [phone] to make an appointment for an incision [...] CC: Dr. Steffen Eisenberg MD ~ Signed 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 Steffen Eisenberg MD Status:ADM IN Location: EC252-9 HPI - General General Date of Admission: [...] 1 current occupational status: unemployed current occupation: [employer] current occupational exposures/hazards: No pets and [...] physical activity do you participate in: none landon/yazidism: None seatbelt use: always do you feel [...] - full term 7lbs 7oz Male [facility] [place] Delivery Date: 07/18/21 Last [...] growth scans at 34 and 38 weeks. [facility] signed today JV- no lof, vaginal bleeding , or dec fm. has growth scans at 34 and 38 weeks. [facility] signed today. pelvic exam performed for [...] 3 hour gtt (3) H/O section: COMMENT: [id number]. desires repeat C/S: [...] Eisenberg MD; Dr. Edel Bullock DO~ Signed [facility]07-30-2025 Progress [facility] [address], [address] [place] [address] OFFICE VISIT Date of Service: 04/28/25 MR#: [id number] Acct: [id number] Name: BARBY CABALLERO Rep #: [id number] : 1990 Provider: Dr. Kellen Bullock DO Age/Sex: 34/F [place] [facility] [place] Status: Signed Intake Vital Signs 03/10/25 14:28 04/20/25 14:13 04/28/25 14:03 04/28/25 14:05 Height 5 ft 2 in 5 ft 2 in 5 ft 2 in 5 ft 2 in Weight: 268 lb 4 oz 265 lb 4 oz BMI 49.0 48.5 BP 116/81 H 123/86 H Intake Visit Reasons: 37 WK OB *CSECTION/JV Last Model Maker Required: No Is patient in pain?: No [...] 1 current occupational status: unemployed current occupation: [employer] current occupational exposures/hazards: No pets and [...] physical activity do you participate in: none landon/yazidism: None seatbelt use: always do you feel safe at home: Yes additional social history: : Ravi [employer] (works from home) History 2 Elective abortions Hx Para 1 Spontaneous abortions Hx # Term Pregnancies 1 Ectopic pregnancies Hx # Pregnancies Multiple births # of living children 1 Past Pregnancies Del. Date Name GA/Weeks Outcome Route Bth Weight Gen Labor Lgth Anesthesia Del Locatn Provider FOB 07/18/21 Larry 40 live - full term 7lbs 7oz Male [facility] [place] Delivery Date: 07/18/21 Last [...] ovarian syndrome) E28.2 CPT Codes Non-Stress Test (94034) Assessment and Plan Assessment and Plan (1) [...] , unspecified, unspecified trimester 04/28/25 1447 e Velde DO> Date _ Edel Bullock DO Cosigner Signature: Date (if applicable) CC: ~ [facility]07-30-2025 Progress note Author Edel Diehl [facility] Note Date/Time April 28, 2025 2:[address] [facility] [address], [address] [place] [address] OFFICE VISIT Date of Service: 04/28/25 MR#: [id number] Acct: [id number] Name: TORRI CABALLEROA EDWINA Rep #: [id number] : 1990 Provider: Dr. Kellen Bullock DO Age/Sex: 34/F [place] [facility] [place]: Signed Intake Vital Signs 03/10/25 14:28 04/20/25 14:13 04/28/25 14:03 04/28/25 14:05 Height 5 ft 2 in 5 ft 2 in 5 ft 2 in 5 ft 2 in Weight: 268 lb 4 oz 265 lb 4 oz BMI 49.0 48.5 BP 116/81 H 123/86 H Intake Visit Reasons: 37 WK OB *CSECTION/JV Last Model Maker Required: No Is patient in pain?: No [...] 1 current occupational status: unemployed current occupation: [employer] current occupational exposures/hazards: No pets and [...] physical activity do you participate in: none landon/yazidism: None seatbelt use: always do you feel safe at home: Yes additional social history: : Ravi [employer] (works from home) History 2 Elective abortions Hx Para 1 Spontaneous abortions Hx # Term Pregnancies 1 Ectopic pregnancies Hx # Pregnancies Multiple births # of living children 1 Past Pregnancies Del. Date Name GA/Weeks Outcome Route Bth Weight Gen Labor Lgth Anesthesia Del Locatn Provider FOB 07/18/21 Larry 40 live - full term 7lbs 7oz Male general [facility] [place] Delivery Date: 07/18/21 Last Updated [...] growth scans at 34 and 38 weeks. [facility] signed today. pelvic exam performed for [...] ovarian syndrome) E28.2 CPT Codes Non-Stress Test (83184) Assessment and Plan Assessment and Plan (1) [...] Cosigner Signature: Date (if applicable) CC: ~ [facility] Work Phone: 1(821) 621-513107-28-2025 Radiology Diagnostic study note [facility] Imaging Services [address] [place] [address] [id number] OB Biophysical Prof W/O NST MR#: [id number] Acct: [id number] Name: BARBY CABALLERO Rep #: [id number] : 1990 F 34 From: Sloan Padron MD PCP: Dr. Steffen Eisenberg MD Status: [facility] CLI Study:OB Biophysical Prof W/O NST Date of Exa m: 04/22/25 Exam# [id number] Ordering Dr: Edel Rowley DO PROCEDURE: OB [...] NST IMPRESSION: Normal biophysical profile. Reading Location: [id number] CC: Dr. Steffen Eisenberg MD; Dr. Edel Bullock DO ~ Taker Down: Signed [facility]07-22-2025 Progress [facility] [address], [address] [place] [address] OFFICE VISIT Date of Service: 04/20/25 MR#: [id number] Acct: [id number] Name: BARBY CABALLERO Rep #: [id number] : 1990 Provider: Dr. Frank Lao MD Age/Sex: 34/F [place] [facility] [place]: Signed Intake Vital Signs 01/29/25 10:30 04/19/25 10:03 04/20/25 14:13 Height 5 ft 2 in 5 ft 2 in 5 ft 2 in Weight: 268 lb 4 oz BMI 49.0 BP 116/81 H Intake Visit Reasons: 36 wk ob *Doc Only* Last Model Maker Required: No Is patient in pain?: No [...] 1 current occupational status: unemployed current occupation: [employer] current occupational exposures/hazards: No pets and [...] physical activity do you participate in: none landon/yazidism: None seatbelt use: always do you feel safe at home: Yes additional social history: : [employer] (works from home) History 2 Elective abortions Hx Para 1 Spontaneous abortions Hx # Term Pregnancies 1 Ectopic pregnancies Hx # Pregnancies Multiple births # of living children 1 Past Pregnancies Del. Date Name GA/Weeks Outcome Route Bth Weight Infant Gen Labor Lgth Anesthesia Del Locatn Provider FOB 07/18/21 Larry 40 live - full term 7lbs 7oz Male [facility] [place] Delivery Date: 07/18/21 Last [...] transfer. declines NIPT had genetic testing at [facility] 11/05/24 -?-?-?-?-?-?-?-?-?-?-?-?- 12w 1d 260 lb [...] POC Urinalysis 2 Dip (Clinic) Today 04/20/25 Deana brown MD> Date _ Apple Lao MD Cosigner Signature: Date (if applicable) CC: ~ [facility] [id number] Progress note Author Apple Lao [facility] Note Date/Time April 20, 2025 2:29 pm [facility] [address], [address] [place] [address] OFFICE VISIT Date of Service: 04/20/25 MR#: [id number] Acct: [id number] Name: BARBY CABALLERO Rep #: [id number] : 1990 Provider: Dr. Frank Lao MD Age/Sex: 34/F [place] [facility] [place]: Signed Intake Vital Signs 01/29/25 10:30 04/19/25 10:03 04/20/25 14:13 Height 5 ft 2 in 5 ft 2 in 5 ft 2 in Weight: 268 lb 4 oz BMI 49.0 BP 116/81 H Intake Visit Reasons: 36 wk ob *Doc Only* Last Model Maker Required: No Is patient in pain?: No [...] 1 current occupational status: unemployed current occupation: [employer] current occupational exposures/hazards: No pets and [...] physical activity do you participate in: none landon/yazidism: None seatbelt use: always do you feel safe at home: Yes additional social history: : [employer]avi [employer] (works from home) History 2 Elective abortions Hx Para 1 Spontaneous abortions Hx # Term Pregnancies 1 Ectopic pregnancies Hx # Pregnancies Multiple births # of living children 1 Past Pregnancies Del. Date Name GA/Weeks Outcome Route Bth Weight Infant Gen Labor Lgth Anesthesia Del Locatn Provider FOB 07/18/21 Larry 40 live - full term 7lbs 7oz Male [facility] [place] Delivery Date: 07/18/21 Last [...] transfer. declines NIPT had genetic testing at [facility] 11/05/24 -?-?-?-?-?-?-?-?-?-?-?-?- 12w 1d 260 lb [...] POC Urinalysis 2 Dip (Clinic) Today 04/20/25 6899 <Electronically signed by Apple brown MD> Date _ Apple Lao MD Cosigner Signature: Date (if applicable) CC: ~ [facility] Work Phone: 1([phone]) 911-502507-17-2025 Radiology Diagnostic study note [facility] Imaging Services [address] [place] [address] OB Biophysical Prof W/O NST MR#: [id number] Acct: [id number] Name: BARBY CABALLERO Rep #: [id number] : 1990 F 34 From: Sloan Padron MD PCP: Dr. Steffen Eisenberg MD Status: REG CLI Study:OB Biophysical Prof W/O NST Date of Exa m: 04/15/25 Exam# [id number] Ordering Dr: Edel Rowley DO PROCEDURE: OB [...] NST IMPRESSION: Normal biophysical profile. Reading Location: [facility]--1 CC: Dr. Steffen Eisenberg MD; Dr. Edel Bullock DO ~ Taker Down: Signed [facility]07-09-2025 Evaluation note* Diagnosis Onset Date Resolution Status Admit Date Depression with anxiety acute J gamaliel 2024 9:54am GERD (gastroesophageal reflux disease) acute April 07, 2025 9 :54am [...] Itching resolved April 19 8:47am H/O biophysical profile with non-stress test deleted Mar 8:47am Depression with anxiety acute J gamaliel 2024 1:59pm GERD (gastroesophageal reflux disease) acute April 20, 2025 1:59pm Infertility [...] 20 1:59pm Depression with anxiety acute J 2024 2:01pm GERD (gastroesophageal reflux disease) acute April 28, 2025 2:01pm Infertility [...] May 06, 2 025 2:05pm GERD (gastroesophageal reflux disease) acute May 06, 2025 2:05pm Infertility [...] acute May 12, 2025 5:52am GERD (gastroesophageal reflux disease) acute May 12 5:52am Infertility associated [...] 12, 2 025 5:52am Postoperative fever acute 2024 7:36pm S/P acute April 7:36pm Soft tissue abscess acute 2024 7:36pm Subcutaneous abscess acute 2024 7:36pm Tachycardia acute May 24, 2025 7:36pm Infected wound acute June 10, 2025 8:22am Surgical wound, non healing acute June 10, 2025 8:22am Routine Follow-Up noneact mnauel June 23, 2025 10:18am Infected wound acute June 25, 2025 11:00am Skin ulcer of abdominal wall with fat layer exposed acute June 25, 2025 11:00am Subcutaneous abscess acute Sept ember 2024 11:00am Surgical wound, non healing acute June 25, 2025 11:00am Infection due to yeast inactive Se ptember 2024 11:00am Skin ulcer of abdominal wall with fat layer exposed acute June 302024 10:45am Subcutaneous abscess acute Octo 2024 10:45am Surgical wound, non healing acute July 09, 2025 10:45am [facility] Work Phone: 1(951) 534-793107-09-2025 Progress [facility] [address] [place] [address], [address] [place] [address] OFFICE VISIT Date of Service: 04/07/25 MR#: [id number] Acct: [id number] Name: BARBY CABALLERO Rep #: [id number] : 1990 Provider: Dr. Kellen Bullock DO Age/Sex: 34/F [place] [facility]: Signed Intake Vital Signs 01/29/25 10:30 03/26/25 14:17 04/07/25 10:00 Height 5 ft 2 in 5 ft 2 in 5 ft 2 in Weight: 268 lb 4 oz BMI 49.0 BP 119/80 Intake Visit Reasons: 34 wk ob *Doc Only* Last Model Maker Required: No Is patient in pain?: No [...] 1 current occupational status: unemployed current occupation: [employer] current occupational exposures/hazards: No pets and [...] physical activity do you participate in: none landon/yazidism: None seatbelt use: always do you feel safe at home: Yes additional social history: : [employer] (works from home) History 2 Elective abortions Hx Para 1 Spontaneous abortions Hx # Term Pregnancies 1 Ectopic pregnancies Hx # Pregnancies Multiple births # of living children 1 Past Pregnancies Del. Date Name GA/Weeks Outcome Route Bth Weight Gen Labor Lgth Anesthesia Del Locatn Provider FOB 07/18/21 Larry 40 live - full term 7lbs 7oz Male [facility] [place] Delivery Date: 07/18/21 Last [...] transfer. declines NIPT had genetic testing at [facility] 11/05/24 -?-?-?-?-?-?-?-?-?-?--?-?- 12w 1d 260 lb [...] Symptoms of Preeclampsia, Infant Feeding No , [place] Education and Family Medical Leave or Disability [...] Shanita DO> Date _ Edel Bullock DO [facility] Signature: Date (if applicable) CC: ~ [facility] [id number] Progress [facility] [address] [place] [address], [address] [place] [address] OFFICE VISIT Date of Service: 03/26/25 MR#: [id number] Acct: [id number] Name: FEDERICOBARBYVICKI HOPE Rep #: [id number] : 1990 Provider: Dr. Kellen Bullock DO Age/Sex: 34/F [place] [facility] Status: Signed Intake Vital Signs 10/09/24 14:36 03/10/25 14:28 03/26/25 14:15 03/26/25 14:17 Height 5 ft 2 in 5 ft 2 in 5 ft 2 in 5 ft 2 in Weight: 267 lb 4 oz BMI 48.9 BP 131/82 H Intake Visit Reasons: *rs 8/ appt* 32 WK OB *DOC ONLY* Last Model Maker Required: No Is patient in pain?: No [...] 1 current occupational status: unemployed current occupation: [employer] current occupational exposures/hazards: No pets and [...] physical activity do you participate in: none landon/yazidism: None seatbelt use: always do you feel safe at home: Yes additional social history: : [employer] (works from home) History 2 Elective abortions Hx Para 1 Spontaneous abortions Hx # Term Pregnancies 1 Ectopic pregnancies Hx # Pregnancies Multiple births # of living children 1 Past Pregnancies Del. Date Name GA/Weeks Outcome Route Bth Weight Infant Gen Labor Lgth Anesthesia Del Locatn Provider FOB 07/18/21 Larry 40 live - full term 7lbs 7oz Male [facility] [place] Delivery Date: 07/18/21 Last Updated by: Aida Shields RN Induce d/t failure to progress naturally .. Slow progression of labor w/ decels .. Failed vacuum delivery into emergency csec HPI *rs 8/ appt* 32 WK OB *DOC ONLY* Details: [...] transfer. declines NIPT had genetic testing at [facility] 11/05/24 -?-?-?-?-?-?-?-?-?-?-?-?- 12w 1d 260 lb [...] growth scans at 34 and 38 weeks. [facility] signed today JV- no lof, vaginal [...] 1436 e Shanita DO> Date _ Edel Reardonignomer Signature: Date (if applicable) CC: ~ [facility] [id number] Progress note Author Edel Diehl [facility] Note Date/Time March 26, 2025 2:36 pm [facility]'s Care [address] [place] [address], [address] [place] [address] OFFICE VISIT Date of Service: 03/26/25 MR#: [id number] Acct: [id number] Name: BARBY CABALLERO Rep #: [id number] : 1990 Provider: Dr. Kellen Bullock, DO Age/Sex: 34/F [place] [facility] Status: Signed Intake Vital Signs 10/09/24 14:36 03/10/25 14:28 03/26/25 14:15 03/26/25 14:17 Height 5 ft 2 in 5 ft 2 in 5 ft 2 in 5 ft 2 in Weight: 267 lb 4 oz BMI 48.9 BP 131/82 H Intake Visit Reasons: *rs 8/ appt* 32 WK OB *DOC ONLY* Last Model Maker Required: No Is patient in pain?: No [...] 1 current occupational status: unemployed current occupation: [employer] current occupational exposures/hazards: No pets and [...] physical activity do you participate in: none landon/yazidism: None seatbelt use: always do you feel safe at home: Yes additional social history: : [employer] (works from home) History 2 Elective abortions Hx Para 1 Spontaneous abortions Hx # Term Pregnancies 1 Ectopic pregnancies Hx # Pregnancies Multiple births # of living children 1 Past Pregnancies Del. Date Name GA/Weeks Outcome Route Bth Weight [facility] Larry 40 live - full term 7lbs 7oz Male [facility] [place] Delivery Date: 07/18/21 Last [...] Today 03/26/25 1436 <Electronically signed by Edel Qunitana DO> Date _ Edel Cabrera Signature: Date (if applicable) CC: ~ [facility] Work Phone: 1(785) 194-913506-11-2025 Evaluation note* Diagnosis Onset Date Resolution Status Admit Date Depression with anxiety acute [facility] 2024 2:11pm GERD (gastroesophageal reflux disease) acute March 10, 2025 2:11pm Infertility [...] 2025 2:11pm Depression with anxiety acute [facility] 2024 2:10pm GERD (gastroesophageal reflux disease) acute March 26, 2025 2:10pm Infertility [...] 2025 2:10pm Depression with anxiety acute J gamaliel 2024 9:54am GERD (gastroesophageal reflux disease) acute April 07, 2025 9 :54am [...] Itching resolved April 19 8:47am H/O biophysical profile with non-stress test deleted Mar 8:47am Depression with anxiety acute J gamaliel 2024 1:59pm GERD (gastroesophageal reflux disease) acute April 20, 2025 1:59pm Infertility [...] 20 1:59pm Depression with anxiety acute J 2024 2:01pm GERD (gastroesophageal reflux disease) acute April 28, 2025 2:01pm Infertility [...] 28 2:01pm Depression with anxiety acute A 2024 2:05pm GBS (group B Streptococcus carrier), +RV culture, currently acute May 06, 025 2:05pm GERD (gastroesophageal reflux disease) acute May 06, 2025 2:05pm Infertility [...] 06 2:05pm Depression with anxiety acute A 2024 5:52am GBS (group B Streptococcus carrier), +RV culture, currently acute May 12, 2025 5:52am GERD (gastroesophageal reflux disease) acute May 12 5:52am Infertility associated [...] section resolved 2024 5:52am Itching resolved May 12 025 5:52am Postoperative fever acute Aprus 2024 7:36pm S/P acute April 7:36pm Soft tissue abscess acute Aprus 2024 7:36pm Subcutaneous abscess acute 2024 7:36pm Tachycardia acute May 24, 2025 7:36pm Infected wound acute June 10, 2025 8:22am Surgical wound, non healing acute June 10, 2025 8:22am Routine Follow-Up noneact manuel June 23, 2025 10:18am Infected wound acute June 25, 2025 11:00am Skin ulcer of abdominal wall with fat layer exposed acute June 25, 2025 11:00am Subcutaneous abscess acute Sept ember 2024 11:00am Surgical wound, non healing acute June 25, 2025 11:00am Infection due to yeast inactive Se ptember 2024 11:00am [facility] Work Phone: 1(689) 310-193105-30-2025 Evaluation note* Diagnosis Onset Date Resolution Status [...] 2025 8:34am Depression with anxiety acute [facility] 2024 2:11pm GERD (gastroesophageal reflu x disease) [...] 2025 2:11pm Depression with anxiety acute [facility] 2024 2:10pm GERD (gastroesophageal reflu x disease) [...] 2025 2:10pm Depression with anxiety acute J 2024 9:54am GERD (gastroesophageal reflu x disease) [...] 28 2:01pm Depression with anxiety acute A ugust 2024 2:05pm GBS (group B Streptococcus carrier), +RV [...] resolved 2024 5:52am Itching resolved May 12, 025 5:52am Postoperative fever acute 2024 7:36pm S/P acute April 7:36pm Soft tissue abscess acute Aug2024 7:36pm Subcutaneous abscess acute 2024 7:36pm Tachycardia acute May 24, 2025 7:36pm [facility] Work Phone: 1([phone]) 703-252505-30-2025 Evaluation note* Diagnosis Onset Date Resolution Status [...] 2025 2:11pm Depression with anxiety acute [facility] 2024 2:10pm GERD (gastroesophageal reflu x disease) [...] 12, 2 025 5:52am Postoperative fever acute 2024 7:36pm S/P acute April 7:36pm Soft tissue abscess acute Augus t 2024 7:36pm Subcutaneous abscess acute 2024 7:36pm Tachycardia acute May 24, 2025 7:36pm Infected wound acute June 09, 2025 7:57am Infection due to yeast acute Se pt2024 7:57am Subcutaneous abscess acute Sept emb2024 7:57am Surgical wound, non healing acute June 09, 2025 7:57am [facility] Work Phone: 1([phone]) 871-248605-30-2025 Evaluation note* Diagnosis Onset Date Resolution Status [...] with anxiety acute J une 2024 2:10pm GERD (gastroesophageal reflu x disease) [...] 2025 2:10pm Depression with anxiety acute J [facility] 2024 9:54am GERD (gastroesophageal reflu x disease) [...] section resolved 2024 5:52am Itching resolved May 12 025 5:52am Postoperative fever acute 2024 7:36pm S/P acute April 7:36pm Soft tissue abscess acute Aprus t 2024 7:36pm Subcutaneous abscess acute 2024 7:36pm Tachycardia acute May 24, 2025 7:36pm Infected wound acute June 10, 2025 8:22am Surgical wound, non healing acute June 10, 2025 8:22am Infected wound acute June 18, 2025 9:30am Skin ulcer of abdominal wall with fat layer exposed acute June 18, 2025 9:30am Subcutaneous abscess acute Sept ember 2024 9:30am Surgical wound, non healing acute June 18, 2025 9:30am Infection due to yeast inactive Se ptember 2024 9:30am [facility] Work Phone: 1(815) 737-865505-30-2025 Progress [facility]'s Care [address] [place] [address], [address] [place] [address] OFFICE VISIT Date of Service: 02/26/25 MR#: [id number] Acct: [id number] Name: BARBY CABALLERO Rep #: [id number] : 1990 Provider: Dr. Frank Lao MD Age/Sex: 34/F [place] [facility] Status: Signed Intake Vital Signs 10/09/24 14:36 01/01/25 10:10 01/29/25 10:30 02/26/25 08:45 Height 5 ft 2 in 5 ft 2 in 5 ft 2 in 5 ft 2 in Weight: 262 lb 2 oz 261 lb 4 oz 264 lb 2 oz BMI 47.9 47.7 48.3 BP 125/82 H 114/81 H 102/66 Intake Visit Reasons: 28 WK OB/GLUCOSE *DOC ONLY* Last Model Maker Required: No Is patient in pain?: No [...] 1 current occupational status: unemployed current occupation: [employer] current occupational exposures/hazards: No pets and [...] physical activity do you participate in: none landon/yazidism: None seatbelt use: always do you feel safe at home: Yes additional social history: : [employer] (works from home) History 2 Elective abortions Hx Para 1 Spontaneous abortions Hx # Term Pregnancies 1 Ectopic pregnancies Hx # Pregnancies Multiple births # of living children 1 Past Pregnancies Del. Date Name GA/Weeks Outcome Route Bth Weight Gen Labor Lgth Anesthesia Del Locatn Provider FOB 07/18/21 Larry 40 live - full term 7lbs 7oz Male [facility] [place] Delivery Date: 07/18/21 Last [...] and Symptoms of Preeclampsia, Feeding No , [place] Education and Family Medical Leave or Disability Forms Office Procedures Injections Is this a patient provided medication?: No Office Meds RhoGAM Ultra-Filtered PLUS 1,500 unit (300 mcg) intramuscular syringe Performing Provider: Apple Lao MD Performing Location: [facility] Administered by: Aziza Olson on 02/26/25 08:56 Dose Route Admin Location Dispensed Lot Number Expiration Date NDC Family Services Coordinator 1,500 unit IM right gluteal 1 [id number] 03/05/27 67628-308-0 0 [employer] [facility] Results POC Urinalysis 2 Dip (Clinic) [...] Cosigner Signature: Date (if applicable) CC: ~ [facility]05-02-2025 Evaluation note* Diagnosis Onset Date Resolution [...] 2025 2:10pm Depression with anxiety acute [facility] 2024 2:10pm Family history of genetic [...] 9 :54am Depression with anxiety acute J [facility] 2024 9:54am Family history of genetic [...] syndrome) acute May 06, 2025 2:05pm acute [facility], 20 25 2:05pm Rh negative status during acute May 06, 2025 2:05pm Sleep apnea acute May 06, 2 025 2:05pm Supervision of high-risk acute May 06, 2025 2:05pm [facility] Work Phone: 1(660) 814-702805-02-2025 Evaluation note* Diagnosis Onset Date Resolution Status [...] 2025 2:11pm Depression with anxiety acute [facility] 2024 2:11pm Family history of genetic [...] 2025 2:10pm Depression with anxiety acute [facility] 2024 2:10pm Family history of genetic [...] 9 :54am Depression with anxiety acute J gamaliel 2024 9:54am Family history of genetic disorder [...] 1:59pm Depression with anxiety acute J gamaliel 22nd, 2025 1:59pm Family history of genetic disorder acute [...] Supervision of high-risk acute May 12 5:52am [facility] Work Phone: 1(988) 930-492805-02-2025 Evaluation note* Diagnosis Onset Date Resolution Status [...] 2025 2:11pm Depression with anxiety acute [facility] 2024 2:10pm GERD (gastroesophageal reflu x disease) [...] 2025 2:10pm Depression with anxiety acute J [facility] 2024 9:54am GERD (gastroesophageal reflu x disease) [...] resolved May 12 5:52am H/O section resolved st 2024 5:52am Itching resolved May 12, 2 025 5:52am Postoperative fever acute t 2024 6:41pm S/P acute April 6:41pm Soft tissue abscess acute Augus t 2024 6:41pm Subcutaneous abscess acute Augu st 2024 6:41pm Tachycardia acute May 24, 2025 6:41pm [facility] Work Phone: 1(552) 867-745605-02-2025 Evaluation note* Diagnosis Onset Date Resolution Status [...] 2025 2:11pm Depression with anxiety acute [facility] 2024 2:10pm GERD (gastroesophageal reflu x disease) [...] 2025 2:10pm Depression with anxiety acute J 2024 9:54am GERD (gastroesophageal reflu x disease) [...] 2025 8:47am Depression with anxiety acute J 2024 1:59pm GERD (gastroesophageal reflu x disease) [...] 2 025 5:52am Postoperative fever acute Aprus 2024 7:36pm S/P acute April 7:36pm Soft tissue abscess acute Aprus 2024 7:36pm Subcutaneous abscess acute 2024 7:36pm Tachycardia acute May 24, 2025 7:36pm [facility] Work Phone: [phone]) 769-850204-04-2025 Evaluation note* Diagnosis Onset Date Resolution Status [...] 2025 10:15am PCOS (polycystic ovarian syndrome) acute May 2nd, 2025 10 :15am acute January 29, 2025 [...] 2025 2:10pm Depression with anxiety acute [facility] 2024 2:10pm Family history of genetic [...] high-risk acute April 07, 2025 9 :54am [facility] Work Phone: 1([phone]) 231-118704-04-2025 Evaluation note* Diagnosis Onset Date Resolution Status [...] :34am Depression with anxiety acute M ay th, 2025 8:34am Family history of genetic disorder acute [...] 2:11pm Depression with anxiety acute [facility] 2024 2:11pm Family history of genetic disorder [...] 2025 2:10pm Depression with anxiety acute [facility] 2024 2:10pm Family history of genetic [...] of high-risk acute April 20, 2025 1:59pm [facility] Work Phone: 1([phone]) 147-127704-04-2025 Evaluation note* Diagnosis Onset Date Resolution Status [...] 2:11pm Depression with anxiety acute [facility] 2024 2:11pm Family history of genetic disorder [...] 2:10pm Depression with anxiety acute [facility] 2024 2:10pm Family history of genetic disorder [...] acute April 28, 2025 2:01pm [facility] Work Phone: 1(341) 607-311903-06-2025 Evaluation note* Diagnosis Onset Date Resolution Status [...] high-risk acute February 26, 2025 8 :34am [facility] Work Phone: 1([phone]) 739-127703-06-2025 Evaluation note* Diagnosis Onset Date Resolution Status [...] of high-risk acute March 10, 2025 2:11pm [facility] Work Phone: 1([phone]) 152-248103-06-2025 Evaluation note* Diagnosis Onset Date Resolution Status [...] 2025 2:10pm Depression with anxiety acute [facility] 2024 2:10pm Family history of genetic [...] of high-risk acute March 26, 2025 2:10pm [facility] Work Phone: [phone]) 172-455402-06-2025 Evaluation note* Diagnosis Onset Date Resolution Status Admit Date AMA (advanced maternal age) multigravida 35+ acute November 05 2 025 2:22pm Conceived by in vitro fertilization acute November 05 2:22pm Depression with anxiety acute [facility] 2024 2:22pm Family history of genetic [...] 2024 1:25pm Depression with anxiety acute M 2024 1:25pm Family history of genetic disorder [...] high-risk acute February 26, 2025 8 :34am [facility] Work Phone: 1([phone]) 430-558102-04-2025 NoteHNO ID: [id number] Author: DEMARCUS MINER PA-C Service: ? Author Type: Physician Assistant Track And Field Coach Type: Progress Notes Filed: 11/03/2024 16:55 Note Text: Telemedicine Visit - Distance Health Virtual Visit Note Patient seen on [employer] Video Visit platform. Location of patient: [place] I have communicated my name and active licensure. The patient's identity and physical location were verified at the time of this visit. Either the patient or their legal employee representative has been informed of the risks [...] person care - All questions answered MIL[facility]02-04-2025 History of Present illness Narrative* Demarcus Miner PA-C - 11/03/2024 4:51 PM EST Telemedicine Visit - Distance Health Virtual Visit Note Patient seen on [employer] Video Visit platform. Location of patient: [place] I have communicated my name and active licensure. The patient's identity and physical location wereverified at the time of this visit. Either the patient or their legal employee representative has been informed of the risks [...] answered Demarcus Miner PA-C [facility] Note * Telephone Encounter - Marta Del Valle MD - 07/29/2024 5:17 PM EDT Due for yearly follow up - must be seen to get additional re [facility]2024 Miscellaneous Notes* Telephone Encounter - Marat Del Valle MD - 07/29/2024 5:17 PM EDT Due for yearly follow up - must be seen to get additional re documented [facility]2024 NoteHNO ID: [id number] Author: GINA SAHU APRN.LUBRICATION SERVICER Service: ? Author Type: Nurse Practitioner Type: [...] Patient agreeable to treatment plan. [facility]ina Sahu [facility] History of Present illness Narrative* Gina Sahu APRN.LEXII - 01/12/2024 11:06 AM EDT CC: Patient [...] Patient agreeable to treatment plan. Gina Sahu APRN.LUBRICATION SERVICER documented [facility] Procedure [facility]04-12-2023 History of Present illness Narrative* Lynne Landaverde - 01/09/2023 9:00 AM EDT Patient offered a medical facility specialist for sensitive exam. Pt declined documented [facility]12[facility]22 History of Present illness Narrative* [...] on how to do it Breasts were "identical twins" now they are "fraternal twins" - R breast hangs a bit lower [...] as of this encounter: 1.581 m (5' 2.25"). Weight as of this encounter: 107.1 kg [...] 114/72, pulse 113, height 1.581 m (5' 2.25"), weight 107.1 kg (236 lb 2 oz),SpO2 99 %, not currently . Physical Exam Exam conducted with a facility specialist present. Constitutional: General: She is not in [...] pumping but will send e consult for allergy and immunology specialist to ensure no additional work up indicated. Normal breast exam, normal TFTs and prolactin documented in this encounterOS[facility]-2022 NoteSatisfactory For Evaluation; Endocervical/Transformation Zone Component Present.[facility] SystemComment on above:Order Comment: Patient'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Performed By: #### THINP #### [facility] (DEFAULT) [address] [id number] History of Present illness Narrative* Faith Starkey [...] Right arm, BP Position: Sitting) Ht 5' 2" (1.575 m) Wt 232 lb (105.2 kg) [...] in one year. documented in this encounterMet[facility]12-07-2022 Miscellaneous Notes* Addendum Note - Chris Whitney MA - 09/05/2022 1:30 PM ESTAddended by: CHRIS WHITNEY on: 09/05/2022 02:34 PM Modules accepted: Orders * Addendum Note - Faith Starkey MD - 09/05/2022 1:30 PM ESTAddended by: FAITH STARKEY on: 09/05/2022 03:03 PM Modules accepted: Orders documented in this encounterOSU [facility]12-07-2022 Note* Addendum Note - Chris Whitney MA - 09/05/2022 1:30 PM ESTAddended by: CHRIS WHITNEY on: 09/05/2022 02:34 PM Modules accepted: Orders [facility]12-07-2022 Note* Addendum Note - Faith Starkey MD - 09/05/2022 1:30 PM ESTAddended by: FAITH STARKEY on: 09/05/2022 03:03 PM Modules accepted: Orders [facility] [facility] of Present illness Narrative* [...] Rh neg Posterior placenta Discussed (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 Objective: Assessment: 31w5d Plan: 1. Has US in 3 weeks 2. RTC 2-4 weeks [facility] Diagnosis Supervision of normal first , antepartum- Primary [facility] Diagnosis Well woman exam with routine gynecological exam- Primary Routine gynecological examination [facility] Diagnosis Well adult exam- Primary [...] full remission [facility] Diagnosis Breast pain, right Mastodynia [facility] Diagnosis Onset Date Resolution Status Infertility associated with anovulation acute PCOS (polycystic ovarian syndrome) acute Encounter for routine gynecological examination noneactive PCOS (polycystic ovarian syndrome) acute [facility] Work Phone: Evaluation note* Diagnosis URI, acute- Primary Acute upper respiratory infections of unspecified site Acute otitis media, right Unspecified otitis media Acute cough [facility] Diagnosis Encounter for assisted reproductive fertility procedure cycle documented in this encounter [facility] Work Phone: Evaluation note* Diagnosis Encounter for assisted reproductive fertility procedure cycle documented in this encounter [facility] Work Phone: Evaluation note* Diagnosis Encounter for assisted reproductive fertility procedure cycle documented in this encounter [facility] Work Phone: Evaluation note* Diagnosis Encounter for assisted reproductive fertility procedure cycle documented in this encounter [facility] Work Phone: Evaluation note* Diagnosis Encounter for test, result positive (HHS-HCC) documented in this encounter [facility] Work Phone: Evaluation note* Diagnosis Encounter for test, result positive (HHS-HCC) documented in this encounter [facility] Work Phone: Evaluation note* Diagnosis Viral URI with cough- Primary Acute upper respiratory infections of unspecified site [facility] Author Edel Diehl 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 Steffne Eisenberg MD Status:ADM IN Location: [facility] [place]420-0 HPI - General General Date of Admission: 05/24/25 HPI Narrative BARBY CABALLERO, is a 34 y/o , status post section on 05/12/25, who presents to [facility] ER with fever up to 102 at [...] breast excretes clotted blood and feels sore. [facility] Medical History (Updated 05/24/25 @ 19:15 [...] 1 current occupational status: unemployed current occupation: [employer] current occupational exposures/hazards: No pets and [...] physical activity do you participate in: none landon/yazidism: None seatbelt use: always do you feel safe at home: Yes additional social history: : [employer] (works from home) History 2 Elective abortions Hx Para 2 Spontaneous abortions Hx # Term Pregnancies 2 Ectopic pregnancies Hx # Pregnancies Multiple births # of living children 2 Past Pregnancies Del. Date Name GA/Weeks Outcome Route Bth Weight Gen Labor Lgth Anesthesia Del Locatn Provider FOB 07/18/21 Larry 40 live - full term 7lbs 7oz Male [facility] 05/12/25 39 live - full term Male sp inal [facility] [place] Delivery Date: 07/18/21 Last Updated [...] Multi Select Codes Visit Charges Visit Charges: 89968 Init Hosp L3 05/24/251921<Electronically signed by Edel Bullock DO> Cosigner Signature (if applicable): cc: Dr. Steffen Eisenberg MD; Dr. Edel Bullock DO ~* Signed [facility] Work Phone: Hospital Discharge instructionsAmbulatory Orders* Wound Care Location: None Selected [facility] Work Phone: Hospital Discharge instructionsAdditional Instructions [facility]: Instructions* Attachments The following attachments cannot be sent through Care Everywhere. * Breast Health ([facility]) ([facility]) * Breast Self-Exam ([facility]) [facility] Author Apple Lao [facility] Note Date/Time February 26, 2025 9:38a m [facility] H ealt System [facility] [address], [address] [place] [address] OFFICE VISIT Date of Service: 02/26/25 MR#: [id number] Acct: [id number] Name: BARBY CABALLERO Rep #: [id number] : 1990 Provider: Dr. Frank Lao MD Age/Sex: 34/F [place] [facility] [place]: Signed Intake Vital Signs 10/09/24 14:36 01/01/25 10:10 01/29/25 10:30 02/26/25 08:45 Height 5 ft 2 in 5 ft 2 in 5 ft 2 in 5 ft 2 in Weight: 262 lb 2 oz 261 lb 4 oz 264 lb 2 oz BMI 47.9 47.7 48.3 BP 125/82 H 114/81 H 102/66 Intake Visit Reasons: 28 WK OB/GLUCOSE *DOC ONLY* Last Model Maker Required: No Is patient in pain?: No [...] 1 current occupational status: unemployed current occupation: [employer] current occupational exposures/hazards: No pets and [...] physical activity do you participate in: none landon/yazidism: None seatbelt use: always do you feel safe at home: Yes additional social history: : [employer] (works from home) History 2 Elective abortions Hx Para 1 Spontaneous abortions Hx # Term Pregnancies 1 Ectopic pregnancies Hx # Pregnancies Multiple births # of living children 1 Past Pregnancies Del. Date Name GA/Weeks Outcome Route Bth Weight Infant Gen Labor Lgth Anesthesia Del Locatn Provider FOB 07/18/21 Larry 40 live - full term 7lbs 7oz Male [facility] [place] Delivery Date: 07/18/21 Last [...] and Symptoms of Preeclampsia, Feeding No , [place] [employer] and Family Medical Leave or Disability Forms Office Procedures Injections Is this a patient provided medication?: No Office Meds RhoGAM Ultra-Filtered PLUS 1,500 unit (300 mcg) intramuscular syringe Performing Provider: Apple Lao MD Performing Location: [facility] Administered by: Aziza Olson on 02/26/25 08:56 Dose Route Admin Location Dispensed Lot Number Expiration Date NDC Family Services Coordinator 1,500 unit IM right gluteal 1 ea [id number] 03/05/27 41951-447-4 0 [facility] [employer] [facility] Results POC Urinalysis 2 Dip (Clinic) [...] POC Urinalysis 2 Dip (Clinic) Today 02/26/25 0965 <Electronically signed by Apple brown MD> Date _ Apple Lao MD Cosigner Signature: Date (if applicable) CC: ~ [facility] Work Phone: Progress note Author Edel Diehl [facility] Note Date/Time April 07, 2025 10:55 am [facility] [address] [place] [address], [address] [place] [address] OFFICE VISIT Date of Service: 04/07/25 MR#: [id number] Acct: [id number] Name: BARBY CABALLERO Rep #: [id number] : 1990 Provider: Dr. Kellen Bullock, Age/Sex: 34/F [place] [facility] [place]: Signed Intake Vital Signs 01/29/25 10:30 03/26/25 14:17 04/07/25 10:00 Height 5 ft 2 in 5 ft 2 in 5 ft 2 in Weight: 268 lb 4 oz BMI 49.0 BP 119/80 Intake Visit Reasons: 34 wk ob *Doc Only* Last Model Maker Required: No Is patient in pain?: No [...] 1 current occupational status: unemployed current occupation: [employer] current occupational exposures/hazards: No pets and [...] physical activity do you participate in: none landon/yazidism: None seatbelt use: always do you feel [...] - full term 7lbs 7oz Male [facility] [place] Delivery Date: 07/18/21 Last [...] transfer. declines NIPT had genetic testing at [facility] 11/05/24 -?-?-?-?-?-?-?-?-?-?--?-?- 12w 1d 260 lb [...] Symptoms of Preeclampsia, Infant Feeding No , [place] Education and Family Medical Leave or Disability [...] Cosigner Signature: Date (if applicable) CC: ~ [facility] Work Phone: Progress note Author Edel Diehl [facility] Note Date/Time June 23, 2025 10:54am [facility] [address], [address] [place] [address] OFFICE VISIT Date of Service: 06/23/25 MR#: [id number] Acct: [id number] Name: BARBY CABALLERO Rep #: [id number] : 1990 Provider: Dr. Kellen Bullock DO Age/Sex: 34/F [place] [facility] [place] Status: Signed Intake Vital Signs 02/26/25 08:45 05/27/25 13:24 06/10/25 08:27 06/23/25 10:19 Height 5 ft 2 in 5 ft 2 in 5 ft 2 in 5 ft 2 in Weight: 235 lb 5 oz BMI 43.0 BP 119/65 Intake Visit Reasons: visit (obstetrics) Chief Complaint: 6 Week PP Last Model Maker Required: No Is patient in pain?: No Allergies No Known Allergies Allergy (Verified 06/23/25 10:19) Medications ?Medication ?Instructions ?Recorded ?Confirmed ?Type escitalopram oxalate 10 mg tablet 10 mg PO DAILY anxie ty/depression 07/20/24 06/23/25 Rx (Lexapro) #30 tabs docosahexaenoic acid 200 mg 200 mg PO DAILY #90 caps 07/28/24 06/23/25 Rx capsule ( DHA) famotidine 40 mg tablet (Pepcid) 40 mg PO DAILY indige stion #30 tabs 01/11/25 06/23/25 Rx breast pump #1 ea 01/29/25 06/23/25 Rx ibuprofen 800 mg tablet 800 mg PO Q8H PRN pain #30 t abs 05/12/25 06/23/25 Rx acetaminophen 500 mg capsule 1,000 mg PO Q6H PRN fever or pain 05/24/25 06/23/25 History CPAP - Continuous Positive Airway 05/28/25 06/23/25 H istory Pressure([facility] INFORMATIONAL USE ONLY) fluconazole 100 mg tablet 100 mg PO DAILY 7 days #7 ta bs 06/05/25 06/23/25 Rx ciprofloxacin HCl 500 mg tablet 500 mg PO BID #20 tabs 06/18/25 06/23/25 Rx : Yes [facility] Medical History PCOS (polycystic ovarian syndrome) [...] 1 current occupational status: unemployed current occupation: [employer] current occupational exposures/hazards: No pets and [...] physical activity do you participate in: none landon/yazidism: None seatbelt use: always do you feel safe at home: Yes additional social history: : [employer] (works from home) History 2 Elective abortions Hx Para 2 Spontaneous abortions Hx # Term Pregnancies 2 Ectopic pregnancies Hx # Pregnancies Multiple births # of living children 2 Past Pregnancies Del. Date Name GA/Weeks Outcome Route Bth Weight Infant Gen Labor Lgth Anesthesia Del Locatn Provider FOB 07/18/21 Larry 40 live - full term 7lbs 7oz Male [facility] 05/12/25 Joo 39 live - full term 7lb 7oz Male spinal [facility] [place] Delivery Date: 07/18/21 Last Updated by: Aida Shields RN Induce d/t failure to progress naturally .. Slow progression of labor w/ decels .. Failed vacuum delivery into emergency csec Delivery Date: 05/12/25 Last Updated by: Aida Shields RN Repeat CS Depression Screen PHQ-2/9 PHQ-2 Over the last 2 weeks, how often have you been bothered by any of the following problems? 1. Little interest or pleasure in doing things: not at all 2. Feeling down, depressed, or hopeless: not at all Total score: 0 Post HPI Routine Follow-Up: Details: BARBY CABALLERO is a 34 year old who presents for her post visit. Infant Feeding: Breast Menses resumed: No Goldonna since delivery: No Emotional Support: Yes Last Pap:: 2021 Control Method: vasectomy ROS Const Reports system reviewed and no additional complaints, except as documented GI Reports system reviewed and no additional complaints, except as documented, Denies bloating, Denies constipation, Denies nausea and Denies vomiting Reports system reviewed and no additional complaints, except as documented, Denies abnormal vaginal bleeding, Denies pelvic pain, Denies sexual dysfunction,Denies urinary incontinence, Denies urinary hesitancy, Denies urinary urgency and Denies vaginal discharge Skin/Breast Reports system reviewed and no additional complaints, except as documented and Reports as per HPI Psych Reports as per HPI Exam Const General: cooperative, healthy appearing, comfortable and no acute distress HENMT Head: normal to inspection Neck Neck: normal visual inspection and no lymphadenopathy Thyroid: thyroid normal Chest Breast inspection: normal inspection of the breasts and normal inspection of theaxillae Breast palpation: normal palpation of the breasts and normal palpation of the axillae Resp Effort & Inspection: normal respiratory effort GI Inspection: normal to inspection Palpation: soft, no hepatosplenomegaly and nontender General: bladder normal to palpation External Female Exam: normal external appearance and normal appearance of the urethra Urethra: normal appearance of the urethra Speculum Exam - Vagina: normal appearance of the vagina and normal vaginal discharge Speculum Exam - Cervix: normal appearance of the cervix Bimanual Exam- Vagina & Uterus: normal bimanual exam, uterine size normal, bladder normal to palpation, uterine shape normal and non-tender Bimanual Exam- Adnexa, other: normal adnexae and normal Pelvic Support: normal Other: wound vac in place and draining. it looks almost 100% better than when in the hospital. Pannus is smaller, no redness present. Skin General: no rashes or lesions noted Coding Level of Care Code Care Only Diagnoses Routine Follow-Up Z39.2 Assessment and Plan Assessment and Plan (1) Routine Follow-Up: Plan: Cervical cancer screening: pap up to brodie e Contraceptive plans: vasectomy Complications: none Follow up for annual exams or sooner if indicated. 06/23/25 1056 <Electronically signed by Edel Quintana DO> Date _ Edel Reardonigner Signature: Date (if applicable) CC: ~ [facility] Work Phone: Progress note Author Rekha Pruett [facility] Note Date/Time July 09, 2025 3 :01pm [facility] [address] [place] [address] Progress Note - Wound Care 07/09/25 1455 MR#: [id number] Acct: [id number] Name: BARBY CABALLERO Rep #:[id number] : 1990 34 From: Rekha Pruett DO PCP: Dr. Steffen Eisenberg MD Status:DIS RCR Location: History of Present Illness Date of Service: 07/09/25 Chief Complaint: Surgical abdominal wound s/p abscess drainage History of Wound: Gunjan is a pleasant 34-year-old white female that had a C- section on May 12, 2025. The wound became infected and she developed an abscess which was drained by Dr. Hernandez via re-opening the incision on 05/27/25. A wound vac was placed to help heal the surgical incision prior to discharge on 05/28/25. She was treated with IV antibiotics initially and discharged on Bactrim DS. She did develop a yeast infection of the skin surrounding the ulcer and was started on Fluconazole on 06/05/25. She was seen at the wound center for follow up on 06/09/25 by Keysha Carr CNP and a wound culture was completed which showed Morganella morganii, Staph epidermidis, Corynebacterium, and E. faecalis in very rare amounts as well as anaerobic bacteria. She was started on Flagyl for treatment of the anaerobic bacteria. Jadynhas been packing the wound with Dakins wet to dry dressings to give her skin a chance to heal from the yeast infection and has been tolerating this treatment well. She denies any fever, chills, increased drainage, erythema or odor. Subjective Subjective Gunjan has tolerated dressings with Aquacel. She is not having any drainage and believes her ulcer is healed. She denies increased drainage or pain or odor. Objective Data Objective Data Vital Signs: Vital Signs Temp Pulse Resp BP 96.6 F L 79 18 121/93 H 07/09/25 11:37 07/09/25 11:37 07/09/25 11:37 07/09/25 11:37 Physical Exam Const alert, oriented x3 and no apparent distress General Appearance: cooperative and comfortable HEENT normocephalic and head/scalp atraumatic Resp normal respiratory effort Effort and Inspection: able to speak in complete sentences Cardio regular rate and regular rhythm Skin Wounds: wounds noted Wound Narrative: epithelialized site of surgical incision without erythema Psych mental status grossly normal, thought process normal, cooperative and affect normal Debridement Note Debridement Note Wound debrided: mid abdomen Laterality: Not Applicable No debridement was completed: No debridement was completed today Post-Debridement Measurements and Additional Note: Post-Debridement Measurements/Treatment WC - Nurse 1 - General Ulcer Assessment Start: 07/02/25 10:53 Freq: Status: Active Protocol: RAHEEM Activity Type Activity Date Activity User E-sign Co-sign Detail Recorded Client Recorded Date Recorded By Document 07/02/25 10:53 RB [id number] 07/02/25 10:57 RB 07/02/25 10:53 WC - Today's Visit Information Type of service Follow-up Visit (Physician/LUBRICATION SERVICER ) Arrival Mode Ambulatory Transfer Assistance None Patient Identification Verified (Name & Yes ) Patient Requires Transmission-Based No Precautions Vital Signs Temperature (97.8 F-99.1 F) 97.5 F L Temperature Source Temporal Pulse Rate (60-100) 75 Pulse Location Monitor Respiratory Rate (12-18) 18 Respiratory rate source Observation Blood Pressure (90/60-120/80) 127/91 H Blood Pressure Mean (mm Hg) 103 Source Monitor Position Semi-Fowlers Blood Pressure Location Left Arm History Since Last Visit- (Skip if this is Patient's initial visit) Have you changed medications since your No last visit? Any new allergies or adverse reactions No Had a fall/change in ADL's that may No increase risk of falls Signs or symptoms of abuse and/or No neglect since last visit Have you been in the hospital since your No last visit? Has dressing in place as prescribed Yes Has compression in place as prescribed No Has offloadiing in place as prescribed No Experienced any changes in pain level or No management Pain Scale: 0-10 Numeric Is Patient Pain Free? Yes BART - Nurse 1 - General Ulcer Measurement Start: 07/02/25 10:53 Freq: Status: Active Protocol: Activity Type Activity Date Activity User E-sign Co-sign Detail Recorded Client Recorded Date Recorded By Document 07/02/25 10:53 RB [id number] 07/02/25 10:57 RB 07/02/25 10:53 Wound Center Nurse 1 #1 ABD -Combined with other wound No -Current Size (cm) - Length 0.5 -Current Size (cm) - Width 2 -Current Size (cm) - Depth 0.1 -Total Square Cm 1.0 -Photo Taken Yes -Tunneling No -Undermining/Tunneling No -Circular Undermining No -Exudate Amt Medium -Exudate Type Serosanguineous -Wound Margin Distinct, Outline Attached -Granulation Amt Medium (34-66%) -Granulation Quality [place] -Slough/Fibrin Yes -Necrosis Amt Medium (34-66%) -Necrotic Tissue Type Adherent Slough -Structure Exposed N/A -Texture (Stephanie-wound Skin Appearance) Assessed -Moisture (Stephanie-wound Skin Appearance) Assessed -Color (Stephanie-wound Skin Appearance) Assessed -Temperature (Stephanie-wound Skin No Abnormality Appearance) (Pt Warm) -Tenderness on Palpation (Stephanie-wound No Skin Appearance) -Ulcer Cleansing Wound Cleanser -Foul Odor after Cleansing No -Anesthetic Used 5% Lidocaine Gel WC - Nurse 2 - General Ulcer CM Notes Start: 07/02/25 10:53 Freq: Status: Active Protocol: Activity Type Activity Date Activity User E-sign Co-sign Detail Recorded Client Recorded Date Recorded By Document 07/02/25 11:05 [id number] 07/02/25 11:19 07/02/25 11:05 Wound Center Nurse 2 -Time 11:05 -Correct Patient Yes -Correct Side, Site, Position Yes -Correct Procedure Yes -Procedure Performed Yes -Type of Procedure Debridement -Clinical Debridement Subcutaneous -Tissue Removed Subcutaneous -Post Debridement (cm) - Length 0.5 -Post Debridement (cm) - Width 4.0 -Post Debridement (cm) - Depth 0.2 -Total Square (Post) (cm) 2.00 -Area of Debridement (cm) - Length 0.5 -Area of Debridement (cm) - Width 4.0 -Total Square (Area) (cm) 2.00 -Tunneling No -Undermining/Tunneling No -Circular Undermining No -Wound/Ulcer Outcome Not Healed -Ulcer Cleansing Rinsed/ Irrigated with Saline -Foul Odor after Cleansing No -Bioengineered Tissue No -Bleeding Controlled with Pressure -Treatment Response Procedure Tolerated Well -Offloading No -Debridement - Subq, 1st 20sq cm Yes Pain Scale: 0-10 Numeric Is Patient Pain Free? Yes WC - Nurse 3 - General Ulcer D/C NN Start: 07/02/25 10:53 Freq: Status: Active Protocol: Activity Type Activity Date Activity User E-sign Co-sign Detail Recorded Client Recorded Date Recorded By Document 07/02/25 11:34 RB [id number] 07/02/25 11:34 RB 07/02/25 11:34 Wound Care Center Nurse 3 #1 ABD -Ulcer Cleansing Wound Cleanser -Primary Dressing Applied Aquacel AG 4x4 -Other Dressing ABD -Primary Dressing Covered/Secured with Secured with Tape -Aquacel AG 4x4 1 Treatment Response Procedure Tolerated Well Pain Scale: 0-10 Numeric Is Patient Pain Free? Yes WC - Visit Discharge Discharge Condition Stable Ambulatory Status Ambulatory Transportation Private Auto Medication Reconcilliation completed & No provided to patient/care provider Clinical Summary of Care Provided Yes Assessment/Plan Assessment/Plan (1) Subcutaneous abscess: CODE(S): L02.91 - Cutaneous abscess, unspecified QUALIFIERS: Site of cutaneous abscess: trunk Site of cutaneous abscess of trunk: abdominal wall Qualified Code(s): L02.211 - Cutaneous abscessof abdominal wall (2) Surgical wound, non healing: CODE(S): T81.89XA - Other complications of procedures, not elsewhere classified, initial encounter QUALIFIERS: Encounter type: initial encounter Qualified Code(s): T81.89XA - Other complications of procedures, not elsewhere classified, initial encounter (3) Skin ulcer of abdominal wall with fat layer exposed: CODE(S): L98.492 - Non-pressure chronic ulcer of skin of other sites with fat layer exposed PLAN: Plan Evaluation performed today in clinic as annotated above. At home wound-care instructions: Gunjan's ulcer is healed. She was advised to keepthe scar site from drying out with using A and D or Aquaphor and to avoid too much moisture as it is in her skin fold. Off-loading: The patient was instructed to avoid pressure and friction on the affected areas. Reposition every 2 hours at minimum. Avoid prolonged standing and/or dangling of legs. When seated, feet should be elevated at chest level. Frequent ambulation is encouraged. Diet: Patient encouraged to increase protein intake while taking caution to avoid high carbohydrate and/or sugar intake. Labs/cultures/imaging: Culture from 06/09/25 was positive for anaerobic bacteria and rare growth of Staph, Morganella, E. faecalis and Corynebacterium. She was started on Ciprofloxacin to cover the Morganella morganii and will continue Flagyl. She will take Fluconazole once weekly. Wound culture was positive for E.faecalis and anaerobic bacteria. She was started on Augmentin. Follow-up: She is discharged from treatment at the wound center today. She was advised to report to her PCP or the emergency room should symptoms worsen, or new symptoms arise. Note: [employer] speech recognition continuity writer software was used to create portions of this document. Sound-alike and misspelled words, as well as other continuity writer errors may be contained in the documentation. 07/09/25 1501 <Electronically signed by Rekha Pruett DO> Cosigner Signature (if applicable): CC: ~ Signed [facility] Work Phone: Rerltd for referral (narrative)No reason for referral information [facility] Work Phone: Reason for visit Narrative* Imaging (Routine) - Authorized Specialty Diagnoses / Procedures Referred By Contac t Referred To Contact Radiology Diagnoses Encounter for assisted reproductive fertility procedure cycle Procedures US PELVIS TRANSABDOMINAL WITH TRANSVAGINAL Levon Braxton MD [address] [place], [place] [id number] Phone: tel: fax: Referral ID Status Reason Start Date Expiration Date Visits Requested Visits Authorized [id number] Authorized Perform Procedure 4 08/13/2025 1 1 [facility] Work Phone: Reason for visit Narrative* Imaging (Routine) - Authorized Specialty Diagnoses / Procedures Referred By Contac t Referred To Contact Radiology Diagnoses Encounter for assisted reproductive fertility procedure cycle Procedures US PELVIS TRANSABDOMINAL WITH TRANSVAGINAL Levon Braxton MD [address] [place] [address] Phone: tel: fax: Referral ID Status Reason Start Date Expiration Date Visits Requested Visits Authorized [id number] Authorized Perform Procedure 4 08/14/2025 1 1 [facility] Work Phone: reason for visit Narrative* Imaging (Routine) - Authorized Specialty Diagnoses / Procedures Referred By Contac t Referred To Contact Radiology Diagnoses Encounter for test, result positive ([facility]HS-HCC) Procedures US PELVIS OB TRANSABDOMINAL W TRANSVAGINAL UP TO 1ST TRIMESTER Levon Braxton MD [address] [place] [address] Phone: tel: fax: Referral ID Status Reason Start Date Expiration Date Visits Requested Visits Authorized [id number] Authorized Perform Procedure 4 09/15/2025 1 1 [facility] Work Phone: reason for visit Narrative* Imaging (Routine) - Authorized Specialty Diagnoses / Procedures Referred By Contac t Referred To Contact Radiology Diagnoses Encounter for test, result positive ([facility]HS-HCC) Procedures US PELVIS OB TRANSABDOMINAL W TRANSVAGINAL UP TO 1ST TRIMESTER Levon Braxton MD [address] [place] [address] Phone: tel: fax: Referral ID Status Reason Start Date Expiration Date Visits Requested Visits Authorized [id number] Authorized Perform Procedure 4 09/25/2025 1 1 [facility] Work Phone: History of Present Illness * Janes Gutiérrez MD - 08/20/2018 9:07 AM EST Formatting of this note may be different from the original. [facility] [address] [facility] [address] Hematology and Oncology Progress Note Patient Name: Barby Caballero MR #: [id number] : 1990 Date of Service: 08/20/18 Clinician: Janes Gutiérrez MD DIAGNOSIS Leukocytosis, etiology unknown. Dictation on: 08/20/2018 9:09 AM by: JANES GUTIÉRREZ [[id number]] History of Present Illness: Ms. Barby Caballero [...] bowel disease or arthritis. 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 For some reason, her CRP has been high over the last year. By reviewing her chart, she had leukocytosis for almost a year now. She is not on any steroid product. Dictation on: 08/20/2018 9:36 AM by: JANES GUTIÉRREZ [[id number]] Allergies Allergen Reactions Amoxicillin Diarrhea and GI [...] 103.6 kg (228 lb 6.4 oz) 5' 2" Body mass index is 41.77 kg/m . [...] Left arm) Pulse (!) 118 Temp 98.1 °F (36.7 °C) (Temporal) Ht 5' 2" Wt 103.6 kg (228 lb 6.4 oz) [...] on: 08/20/2018 9:37 AM by: JANES GUTIÉRREZ [[id number]] Orders Placed This Encounter CBC and Differential Janes Gutiérrez MD CC: Marta Del Valle MD in this encounter* Janes Gutiérrez MD - 01/22/2020 1:48 PM EDT [facility] [address] [place] [phone] Hematology and Oncology Progress Note Patient Name: Barby Caballero MR #: [id number] : 1990 Date of Service: 02/18/2019 Clinician: [...] bowel disease or arthritis. 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 For some reason, her CRP has been [...] back negative. She is clinically asymptomatic. Stillworking full time paramedic. CBC stable with WBC 5.15, Hgb 13.5 [...] file Gets together: Not on file Attends christianity service: Not on file Active member of [...] mg by mouth. 07/31/18 Yes Historical Provider, [facility], 28, 0.1/.125/.15-25 mg-mcg tablet 02/26/15 Yes Historical Provider, omeprazole (PRILOSEC) 20 MG capsule Take 20 mg by mouth daily. Historical Provider, Last Height and Weight with BMI: 105.5 kg (232 lb 9.6 oz) 5' 2" Body mass index is 42.54 kg/m . 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 (History) Past [...] - 07/27/2020 10:40 AM EDT Patient Name: [facility] Location: Barby Caballero [address] [place] [address] Date Of : Date Of Visit: 1990 07/27/2020 MRN# Provider: [id number] Marli Thompson PA-C Chief Complaint Patient presents [...] . famotidine (PEPCID) 40 MG tablet vit 96-tdvu-jbiza-dha ( + DHA) 28 mg iron- 975 [...] go immediately to ED for further evaluation [facility] COVID-19 Post-swabbing Instructions We will do our best to update you as soon as we receive your test results, but if we had to send your test to be run at the lab, you may see the results on WalkSourcehart or receive a call from [facility] before we are able to contact [...] results. - If you have an active [facility] account, and your COVID-19 test is negative (not detected), then you will be notified through your [facility] account. You should call the urgent care if you have any further questions. - If your COVID-19 test is positive (detected), you will receive a phone call to discuss your results and answer any questions you might have at that time. Please make sure [facility] has your updated phone number so we can contact you. 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 CDC - https://www.cdc.gov/coronavirus/2019-ncov/index.html - https://www.cdc.gov/coronavirus/2019-ncov/pj-eyh-omm-sick/quarantine.html [place] [facility] - Website: https://coronavirus.[place].gov/wps/portal/gov/covid-19/home - Hotline: 364-2-MOF-ODH (747-501-1794) [employer]: https://blog.Dimple Dough.[employer]/series/etxia-64-fnpfrpzoryg-toolkit/ documented in this encounter* Janes Gutiérrez MD - 08/19/2019 11:05 AM EST [facility] [address] [facility] [address] Hematology and Oncology Progress Note Patient Name: Barby Caballero MR #: [id number] : 1990 Date of Service: 08/19/19 Clinician: [...] bowel disease or arthritis. 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 For some reason, her CRP has been [...] days. No fever or chills. 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 Dictation on: 08/19/2019 11:07 AM by: JANES GUTIÉRREZ [[id number]] Allergies Allergen Reactions Amoxicillin Diarrhea and GI [...] file Gets together: Not on file Attends christianity service: Not on file Active member of [...] 96.4 kg (212 lb 9.6 oz) 5' 2" Body mass index is 38.89 kg/m . [...] 98.2 F (36.8 C) (Temporal) Ht 5' 2" Wt 96.4 kg (212 lb 9.6 oz) [...] on: 08/19/2019 11:08 AM by: JANES GUTIÉRREZ [[id number]] Orders Placed This Encounter famotidine (PEPCID) 40 [...] sent through Care Everywhere. * Abdominal Pain ([place]) documented in this encounter* Instructions* Laurent Duque MD - 03/19/2019 Continue taking your home medications as prescribed. Follow-up with your family doctor first available appointment. Return to the emergency room for any worsening symptoms or concerns * Attachments The following attachments cannot be sent through Care Everywhere. 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 No November 10, 2024 8:21pm Advance Directive Response Recorded Date/ Time Do you have a Healthcare Power of Telephone Order Supervisor? unsu re May 12, 2025 6:17am Advance Directive Response Recorded Date/ Time Do you have a Healthcare Power of Telephone Order Supervisor? unsu re May 12, 2025 6:17am Do you have a Healthcare Power of Telephone Order Supervisor? Yes May 24, 2025 2:08pm Advance Directive Response Recorded Date/ Time Do you have a Healthcare Power of Telephone Order Supervisor? unsu re May 12, 2025 6:17am Do you have a Healthcare Power of Telephone Order Supervisor? Yes May 24, 2025 8:14pm Advance Directive Response Recorded Date/ Time Do you have a Healthcare Power of Telephone Order Supervisor? unsu re May 12, 2025 6:17am Do you have a Healthcare Power of Telephone Order Supervisor? Yes May 24, 2025 8:14pm Do you have a Healthcare Power of Telephone Order Supervisor? Yes June 05, 2025 4:52pm Summary Purpose Family History No Family History Records Found Relationship Condition Age at Onset Recorded Date/T sherri mother Hypertension Unknown grandfather Cardiac disease Unknown Hypertension Unknown Diabetes mellitus Unknown Malignant neoplasm Unknown Macular degeneration Unknown grandmother Macular degeneration Unknown Instructions * Patient Instructions* Sandie Tyler MA - 08/23/2020 9:02 AM EST Effective 10/14/2019, all [facility] users will be automatically enrolled in paperless billing in an effort to save our environment by eliminating waste & reduce healthcare costs. A monthly notification will be sent to your e-mail address on file indicating you have a new billing statement available in [facility]. If you prefer to receive paper statements, log into [facility] at Hublished to update your e-mail, text and mail preferences (opting out of paperless billing). Please direct further questions to Customer Service at [phone] or [email or web address]. documented in this encounter* Patient Instructions* Marli [...] go immediately to ED for further evaluation [facility] COVID-19 Post-swabbing Instructions We will do our best to update you as soon as we receive your test results, but if we had to send your test to be run at the lab, you may see the results on MyChart or receive a call from [facility] before we are able to contact [...] results. - If you have an active [facility] account, and your COVID-19 test is negative (not detected), then you will be notified through your [facility] account. You should call the urgent care if you have any further questions. - If your COVID-19 test is positive (detected), you will receive a phone call to discuss your results and answer any questions you might have at that time. Please make sure [facility] has your updated phone number so we can contact you. 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 CDC - https://www.cdc.gov/coronavirus/2019-ncov/index.html - https://www.cdc.gov/coronavirus/2019-ncov/em-ego-grh-sick/quarantine.html [place] [facility] - Website: https://coronavirus.[place].gov/wps/portal/gov/covid-19/home - Hotline: 874-2-HQU-ODH (699-089-0317) [employer]: https://blog.SpeakUp/series/cgzjd-78-kzydaacmhvl-toolkit/ documented in this encounter Reason for Referral Specialty Diagnoses / Procedures Referred By Contac t Referred To Contact Diagnoses Prolonged Marta Del Valle MD [address] [place] [address] Referral ID Status Reason Start Date Expiration Date V isits Requested Visits Authorized [id number] New Request 09/27/2022 10/22/2023 1 1 Specialty Diagnoses / Procedures Referred By Contac t Referred To Contact Radiology Diagnoses Encounter for assisted reproductive fertility procedure cycle Procedures US PELVIS TRANSABDOMINAL WITH TRANSVAGINAL US pelvis transvaginal Levon Braxton MD [address] [place] [address] Referral ID Status Reason Start Date Expiration Date Visits Requested Visits Authorized [id number] Pending Review Perform Procedure 06/11/2024 06/11/2025 1 1 Specialty Diagnoses / Procedures Referred By Contac t Referred To Contact Radiology Diagnoses Encounter for assisted reproductive fertility procedure cycle Procedures GERRY US Pelvis Limited Follicles - Follicle Studies Performed Levon Braxton MD [address] [place] [address] Referral ID Status Reason Start Date Expiration Date Visits Requested Visits Authorized [id number] Authorized Perform Procedure 06/19/2024 06/19/2025 1 1 Specialty Diagnoses / Procedures Referred By Contac t Referred To Contact Radiology Diagnoses Encounter for assisted reproductive fertility procedure cycle Procedures US PELVIS TRANSABDOMINAL WITH TRANSVAGINAL Levon Braxton MD [address] [place] [address] Referral ID Status Reason Start Date Expiration Date Visits Requested Visits Authorized [id number] Authorized Perform Procedure 06/15/2024 06/15/2025 1 1 Referral ID Status Reason Start Date Expiration Date Visits Requested Visits Authorized [id number] Authorized Perform Procedure 06/22/2024 06/22/2025 1 1 Referral ID Status Reason Start Date Expiration Date Visits Requested Visits Authorized [id number] Authorized Perform Procedure 06/15/2024 06/15/2025 1 1 Referral ID Status Reason Start Date Expiration Date Visits Requested Visits Authorized [id number] Authorized Perform Procedure 06/24/2024 06/24/2025 1 1 Referral ID Status Reason Start Date Expiration Date Visits Requested Visits Authorized [id number] Authorized Perform Procedure 06/15/2024 06/15/2025 1 1 Chief Complaint and Reason for Visit 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 Reason for Visit Infertility associat [...] 2024 2:22pm Conceived by in vitro fertilization 2024 2:22pm Depression with anxiety November 05 2:22pm Family history of genetic disorder 2024 2:22pm GERD (gastroesophageal reflux disease) F ebruary 2024 2:22pm H/O section November 05, 2024 2:22pm Infertility associated with anovulation November 05, 2024 2:22pm Marijuana use November 05, 2024 2 :22pm Obesity affecting October 2:22pm PCOS (polycystic ovarian syndrome) 2024 2:22pm November 05, 2024 2 :22pm Rh negative status during 2024 2:22pm Sleep apnea November 05, 2024 2 :22pm Supervision of high-risk [facility]2024 2:22pm AMA (advanced maternal age) multigravida 35+ December 03, 2024 1:25pm Conceived by in vitro fertilization [facility] 2024 1:25pm Depression with anxiety December 03, 2024 1:25pm Family history of genetic disorder December 03, 2024 1:25pm GERD (gastroesophageal reflux disease) M [facility] 2024 1:25pm H/O section December 03, 2024 1:2 5pm Infertility associated with anovulation December 03, 2024 1:25pm Marijuana use December 03, 2024 1:25 pm Obesity affecting December 03, 025 1:25pm PCOS (polycystic ovarian syndrome) December [...] 2024 1:25pm Conceived by in vitro fertilization [facility] 2024 1:25pm Depression with anxiety [...] 2024 1:25pm Conceived by in vitro fertilization [facility] 2024 1:25pm Depression with anxiety [...] 03, 2024 1:25 pm Supervision of high-risk March 6th, 2025 1:25pm AMA (advanced maternal age) multigravida 35+ [...] 1:25pm Conceived by in vitro fertilization William veliz 2024 1:25pm Depression with anxiety December 03, [...] 2025 8:34 am Infertility associated with anovulation May 30th, 2025 8:34am Marijuana use February 26, 2025 [...] 2025 2:11pm GERD (gastroesophageal reflux disease) [facility] 2024 2:11pm H/O section March 10, [...] 2025 2:10pm GERD (gastroesophageal reflux disease) [facility] 2024 2:10pm H/O section March 26, [...] 19, 2025 8:47am Chief Complaint Admit Date WK OB *DOC [...] 2025 9:54am GERD (gastroesophageal reflux disease) J [facility] 2024 9:54am H/O section April 07, [...] 2025 2:10pm GERD (gastroesophageal reflux disease) [facility] 2024 2:10pm H/O section March 26, 2025 2:1 0pm Infertility associated with anovulation March 26, 2025 2:10pm Marijuana use March 26, 2025 2:10 pm Obesity affecting March 26 2 025 2:10pm PCOS (polycystic ovarian syndrome) [...] 2025 9:54am GERD (gastroesophageal reflux disease) J [facility] 2024 9:54am H/O section April 07, [...] April 20, 2025 1:59pm Abnormal glucose affecting Pablo 2024 2:01pm AMA (advanced maternal age) multigravida 35+ [...] 2025 2:10pm GERD (gastroesophageal reflux disease) [facility] 2024 2:10pm H/O section March 26, 2025 2:1 0pm Infertility associated with anovulation March 26, 2025 2:10pm Marijuana use March 26, 2025 2:10 pm Obesity affecting March 26 2 025 2:10pm PCOS (polycystic ovarian syndrome) [...] 2025 9:54am GERD (gastroesophageal reflux disease) [facility] 2024 9:54am H/O section April 07, [...] April 20, 2025 1:59pm Abnormal glucose affecting Pablo 2024 2:01pm AMA (advanced maternal age) multigravida 35+ [...] 2025 9:54am GERD (gastroesophageal reflux disease) J [facility] 2024 9:54am H/O section April 07, [...] 20, 2025 1:59pm GERD (gastroesophageal reflux disease) Heather gamaliel 2024 1:59pm H/O section April 20, [...] April 28, 2025 2:01 pm Obesity affecting Mireya 30th, 2 025 2:01pm PCOS (polycystic ovarian syndrome) [...] high-risk 2024 2:05pm Abnormal glucose affecting Apr 5:52am [...] 2025 2:11 pm Obesity affecting March 10, 2:11pm PCOS (polycystic ovarian syndrome) March 10, [...] 2025 2:10pm GERD (gastroesophageal reflux disease) [facility] 2024 2:10pm Infertility associated with anovulation March 26, 2025 2:10pm Marijuana use March 26, 2025 2:10 pm Obesity affecting March 26 2:10pm PCOS (polycystic ovarian syndrome) March 26, 2025 2:10pm March 26, 2025 2:10 pm Rh negative status during March 26, 2025 2:10pm Sleep apnea March 26, 2025 2:10 pm Supervision of high-risk March 26, 2025 2:10pm Abnormal glucose affecting Feb 2:10pm AMA (advanced maternal age) multigravida 35+ March 26, 2025 2:10pm Conceived by in vitro fertilization March 26, 2025 2:10pm Family history of genetic disorder March 26, 2025 2:10pm H/O section March 26, 2025 2:1 0pm Depression with anxiety April 07, 2025 9 :54am GERD (gastroesophageal reflux disease) J [facility] 2024 9:54am Infertility associated with anovulation April 07, 2025 9:54am Marijuana use April 07, 2025 9:54a m Obesity affecting April 07 9:54am PCOS (polycystic ovarian syndrome) April 07, 2025 9:54am April 07, 2025 9:54a m Rh negative status during April 07, 2025 9:54am Sleep apnea April 07, 2025 9:54a m Supervision of high-risk April 07, 2025 9:54am Abnormal glucose affecting Pablo y 2024 9:54am [...] April 20, 2025 1:59pm Abnormal glucose affecting Pablo 2024 1:59pm AMA (advanced maternal age) multigravida [...] 28, 2025 2:01pm Abnormal glucose affecting Pablo 2024 2:01pm AMA (advanced maternal age) multigravida 35+ [...] high-risk 2024 2:05pm Abnormal glucose affecting Apr us2024 [...] 12, 2025 5:52am [facility]cystic ovarian syndrome) [facility] 2024 5:52am May 12, 2025 5: 52am Rh negative status during [facility] 2024 5:52am S/P May 12, 2025 5: 52am Sleep apnea May 12, 2025 5: 52am Supervision of high-risk [facility] 2024 5:52am Abnormal glucose affecting Aug us 2024 5:52am AMA (advanced maternal age) multigravida 35+ May 12, 2025 5:52am Conceived by in vitro fertilization [facility] 2024 5:52am Family history of genetic disorder [facility] 2024 5:52am H/O section May 12, 2025 [...] 10 :15am GERD (gastroesophageal reflux disease) M 2024 10:15am Infertility associated with anovulation January [...] 29, 2025 10:15 am Depression with anxiety May 30th, 2025 8 :34am GERD (gastroesophageal reflux disease) [...] 2025 2:11pm GERD (gastroesophageal reflux disease) [facility] 2024 2:11pm Infertility associated with anovulation March [...] 2025 2:10pm GERD (gastroesophageal reflux disease) [facility] 2024 2:10pm Infertility associated with anovulation March [...] 28, 2025 2:01 pm Obesity affecting April 28 2 025 2:01pm PCOS (polycystic ovarian syndrome) [...] high-risk 2024 2:05pm Abnormal glucose affecting Apr us2024 [...] 2025 2:11pm GERD (gastroesophageal reflux disease) J 2024 2:11pm Infertility associated with anovulation March [...] 2025 1:59pm GERD (gastroesophageal reflux disease) J [facility] 2024 1:59pm Infertility associated with anovulation April [...] 28, 2025 2:01 pm Obesity affecting April 28 025 2:01pm PCOS (polycystic ovarian syndrome) April 28, 2025 2:01pm April 28, 2025 2:01 pm Rh negative status during April 28, 2025 2:01pm Sleep apnea April 28, 2025 2:01 pm Supervision of high-risk April 28, 2025 2:01pm Abnormal glucose affecting Pablo 2024 2:01pm AMA (advanced maternal age) multigravida 35+ [...] Aprus 2024 2:05pm Abnormal glucose affecting Apr 2:05pm [...] 12, 2025 5: 52am Supervision of high-risk Aug2024 5:52am Abnormal glucose affecting Aug us2024 5:52am AMA (advanced maternal age) multigravida 35+ May 12, 2025 5:52am Conceived by in vitro fertilization Aug2024 5:52am Family history of genetic disorder [facility] [...] 11:44am Referral Order June 03, 2025 2:34pm WOUND CHECK June 05, 2025 2:40pm Chief Complaint Admit Date 28 WK OB/GLUCOSE [...] STATUS POST CSECTION May 24, 2025 7:36pm EKG May 25, 2025 7: 32am SOFT TISSUE ABSCESS STATUS POST CSECTION May [...] 11:44am Referral Order June 03, 2025 2:34pm WOUND CHECK June 05, 2025 2:40pm wound June 09, 2025 7:57am wound June 09, 2025 12:15pm 2wk incision/wound vac ck May 8:22am Reason for Visit Admit Date Depression with anxiety February 26, 2025 8 :34am GERD (gastroesophageal reflux disease) M 2024 8:34am Infertility associated with anovulation February [...] 2025 2:11pm GERD (gastroesophageal reflux disease) [facility] 2024 2:11pm Infertility associated with anovulation March [...] March 26, 2025 2:10pm Abnormal glucose affecting Feb 2:10pm AMA (advanced [...] 2024 2:05pm Family history of genetic disorder 2024 2:05pm H/O section May 06, 2025 [...] :36pm Tachycardia May 24, 2025 7: 36pm Infected wound June 09, 2025 7:57am Infection due to yeast June 09, 2 025 7:57am Subcutaneous abscess June 09 7:57am Surgical wound, non healing June 092024 7:57am Chief Complaint Admit Date 28 WK OB/GLUCOSE *DOC ONLY* February 26 8:34am SCREENING FOR DIABETES MELLITUS February 6:51am 30 WK OB *DOC ONLY* March 10, 2025 2:11 pm *rs 8/ appt* 32 WK OB *DOC ONLY* March [...] STATUS POST CSECTION May 24, 2025 7:36pm EKG May 25, 2025 7: 32am SOFT TISSUE ABSCESS STATUS POST CSECTION May [...] 11:44am Referral Order June 03, 2025 2:34pm WOUND CHECK June 05, 2025 2:40pm wound June 09, 2025 12:15pm 2wk incision/wound vac ck May 8:22am wound June 18, 2025 9:30am Reason for Visit Admit Date Depression with anxiety February 26, 2025 8 :34am GERD (gastroesophageal reflux disease) M ay 2024 8:34am Infertility associated with anovulation February 26, 2025 8:34am Marijuana use February 26, 2025 8:34a m Obesity affecting May 30th, 20 25 8:34am PCOS (polycystic ovarian syndrome) January 302024 [...] 2025 2:11pm GERD (gastroesophageal reflux disease) [facility] 2024 2:11pm Infertility associated with anovulation March [...] 2025 2:10pm GERD (gastroesophageal reflux disease) [facility] 2024 2:10pm Infertility associated with anovulation March [...] 2025 5:52am GERD (gastroesophageal reflux disease) A 2024 5:52am Infertility associated with anovulation May 12, 2025 5:52am Marijuana use May 12, 2025 5: 52am Obesity affecting May 12, 2025 5:52am PCOS (polycystic ovarian syndrome) [facility] 2024 5:52am May 12, 2025 5: 52am Rh negative status during Apru 2024 5:52am S/P May 12, 2025 5: 52am Sleep apnea May 12, 2025 5: 52am Supervision of high-risk Aprus 2024 5:52am Abnormal glucose affecting Apr us2024 5:52am AMA (advanced maternal age) multigravida 35+ May 12, 2025 5:52am Conceived by in vitro fertilization 2024 5:52am Family history of genetic disorder Augus t 2024 5:52am H/O section May 12, 2025 5 :52am Itching May 12, 2025 5: 52am Postoperative fever May 24, 2025 7: 36pm S/P May 24, 2025 7: 36pm Soft tissue abscess May 24, 2025 7: 36pm Subcutaneous abscess May 24, 2025 7 :36pm Tachycardia May 24, 2025 7: 36pm Infected wound June 10, 2025 8:22am Surgical wound, non healing June 102024 8:22am Infected wound June 18, 2025 9:30am Skin ulcer of abdominal wall with fat la reymundo exposed June 18, 2025 9:30am Subcutaneous abscess June 18 9:30am Surgical wound, non healing June 182024 9:30am Infection due to yeast June 18, 025 9:30am Chief Complaint Admit Date SCREENING FOR DIABETES MELLITUS February 6:51am 29 [...] STATUS POST CSECTION May 24, 2025 7:36pm EKG May 25, 2025 7: 32am SOFT TISSUE ABSCESS STATUS POST CSECTION May [...] 11:44am Referral Order June 03, 2025 2:34pm WOUND CHECK June 05, 2025 2:40pm wound June 09, 2025 12:15pm 2wk incision/wound vac ck May 8:22am visit (obstetrics) June 23, 2025 10:18am wound June 25, 2025 11:00am Reason for Visit Admit Date Depression with anxiety March 10, 2025 2:11pm GERD (gastroesophageal reflux disease) [facility] 2024 2:11pm Infertility associated with anovulation March [...] 2025 2:10pm GERD (gastroesophageal reflux disease) [facility] 2024 2:10pm Infertility associated with anovulation March [...] 28, 2025 2:01 pm Obesity affecting April 28 2 025 2:01pm PCOS (polycystic ovarian syndrome) [...] high-risk 2024 2:05pm Abnormal glucose affecting Apr us2024 [...] :36pm Tachycardia May 24, 2025 7: 36pm Infected wound June 10, 2025 8:22am Surgical wound, non healing June 102024 8:22am Routine Follow-Up June 012024 10:18am Infected wound June 25, 2025 11:00am Skin ulcer of abdominal wall with fat la reymundo exposed June 25, 2025 11:00am Subcutaneous abscess June 25 11:00am Surgical wound, non healing June 252024 11:00am Infection due to yeast June 25 11:00am Chief Complaint Admit Date 34 wk ob *Doc Only* April 07, [...] STATUS POST CSECTION May 24, 2025 7:36pm EKG May 25, 2025 7: 32am SOFT TISSUE ABSCESS STATUS POST CSECTION May [...] 11:44am Referral Order June 03, 2025 2:34pm WOUND CHECK June 05, 2025 2:40pm wound June 09, 2025 12:15pm 2wk incision/wound vac ck May 8:22am visit (obstetrics) June 23, 2025 10:18am wound June 25, 2025 11:00am wound July 09, 2025 1 0:45am Reason for Visit Admit Date Depression with anxiety April 07, 2025 9 [...] 2025 8:47 am Obesity affecting April 19, 8:47am April 19, 2025 8:47 am Rh [...] 2024 2:05pm Family history of genetic disorder 2024 2:05pm H/O section May 06, 2025 [...] 2025 5: 52am Rh negative status during [facility] 2024 5:52am S/P May 12, 2025 5: 52am Sleep apnea May 12, 2025 5: 52am Supervision of high-risk Aug t 2024 5:52am Abnormal glucose affecting [facility] us 2024 5:52am AMA (advanced maternal age) multigravida 35+ May 12, 2025 5:52am Conceived by in vitro fertilization [facility] 2024 5:52am Family history of genetic disorder [facility] 2024 5:52am H/O section May 12, 2025 5 :52am Itching May 12, 2025 5: 52am Postoperative fever May 24, 2025 7: 36pm S/P May 24, 2025 7: 36pm Soft tissue abscess May 24, 2025 7: 36pm Subcutaneous abscess May 24, 2025 7 :36pm Tachycardia May 24, 2025 7: 36pm Infected wound June 10, 2025 8:22am Surgical wound, non healing June 102024 8:22am Routine Follow-Up June 012024 10:18am Infected wound June 25, 2025 11:00am Skin ulcer of abdominal wall with fat la reymundo exposed June 25, 2025 11:00am Subcutaneous abscess June 25 11:00am Surgical wound, non healing June 252024 11:00am Infection due to yeast June 25, 2 025 11:00am Skin ulcer of abdominal wall with fat la reymundo exposed July 09, 2025 10:45am Subcutaneous abscess July 09, 2025 10:45am Surgical wound, non healing June 10:45am Additional Source Comments Reason for Visit (unrecogniz [...] BILATERAL MAMMO DIAGNOSTIC BILATERAL Lawrence Young MD [address] [place] [address] Referral ID Status Reason Start Date Expiration Date V isits Requested Visits Authorized [id number] New Request 12/19/2022 01/13/2024 1 1 Reason Comments Cough Fevers x4 days Specialty Diagnoses / Procedures Referred By Adia vicente Referred To Contact Radiology Diagnoses Encounter for assisted reproductive fertility procedure cycle Procedures US PELVIS TRANSABDOMINAL WITH TRANSVAGINAL US pelvis transvaginal Levon Braxton MD [address] [place] [address] Referral ID Status Reason Start Date Expiration Date Visits Requested Visits Authorized [id number] Pending Review Perform Procedure 06/11/2024 06/11/2025 1 1 Specialty Diagnoses / Procedures Referred By Adia vicente Referred To Contact Radiology Diagnoses Encounter for assisted reproductive fertility procedure cycle Procedures US PELVIS TRANSABDOMINAL WITH TRANSVAGINAL Levon Braxton MD [address] [place] [address] Referral ID Status Reason Start Date Expiration Date Visits Requested Visits Authorized [id number] Authorized Perform Procedure 06/15/2024 06/15/2025 1 1 Referral ID Status Reason Start Date Expiration Date Visits Requested Visits Authorized [id number] Authorized Perform Procedure 06/15/2024 06/15/2025 1 1 Referral ID Status Reason Start Date Expiration Date Visits Requested Visits Authorized [id number] Authorized Perform Procedure 06/15/2024 06/15/2025 1 1 Reason Comments Cough Max Alan PA-C - 07/29/2019 1:14 PM Mirta Davenport RN - 07/29/2019 12:15 PM Mirta Davenport RN - 07/29/2019 10:40 AM Rebeca Jiménez RN - 07/29/2019 10:25 AM EDT ED Notes (unrecognized secti on and content) [facility] EM[facility]ENCY [facility] NAME: Barby Hope Federico PCP: Marta Del Valle MD AGE: 28 y.o. CSN: [id number] ED Course / Medical Decision Making: After [...] file Gets together: Not on file Attends christianity service: Not on file Active member of [...] C) (!) 106 18 95 % 5' 2" 97.5 kg (215 lb) Physical Exam Vitals [...] Procedure Abnormality Status --------- ------ CBC Auto Differential[[id number]] Abnormal Final result Please view results for [...] Otherwise unremarkable right upper quadrant abdominal ultrasound. [employer] Workstation ID: [id number] No current facility-administered medications [...] for ER worsening or new concerning symptoms [address] [facility] [address] Contact information for after-discharge care Follow-up information has not been specified. New Prescriptions ondansetron (Zofran ODT) 4 MG disintegrating tablet Dissolve 1 (one) tablet (4 mg total) on top of tongue every 6 (six) hours as needed for nausea . Max MATTA PA-C Emergency Department Physician Assistant Track And Field Coach (Please note that portions of this note [...] with steady gait Associated Order(s): EKG 12-lead [facility] PCP - Marta Del Valle MD Chief Complaint Patient presents with Chest Pain HPI 28-year-old white female with a history of reflux, depression, anxiety, and irritable bowel states that shortly after 6 PM she had some Mongolian fries and drank a beer and then [...] Marta Del Valle MD. Specialty: Internal Medicine [address] [place] [address] [facility] [...] 105 16 100 % 03/18/19 2327 5' 1" 104.3 kg (230 lb) Physical Exam Constitutional: [...] file Gets together: Not on file Attends christianity service: Not on file Active member of [...] atelectatic change with no other acute process. [employer] Workstation ID: [id number] No results found. Medications [...] expedite correspondence this note was generated by [employer] voice recognition software. Some grammatical or spelling [...] Procedure Abnormality Status --------- ------ CBC Auto Differential[[id number]] Abnormal Final result Please view results for [...] took protonix at dinner which she had swiss fries and 1 [place] drink. documented [...] section and content) DATE CREATED AUTHOR 07/27/2020 [facility] DATE CREATED AUTHOR AUTHOR'S ORGANIZ ATION 08/23/2020 [facility] DATE CREATED AUTHOR AUTHOR'S ORGANIZ ATION 10/04/2021 [facility] DATE CREATED AUTHOR AUTHOR'S ORGANIZ ATION 10/06/2021 [facility] DATE CREATED AUTHOR AUTHOR'S ORGANIZ ATION 10/08/2021 [facility] DATE CREATED AUTHOR AUTHOR'S ORGANIZ ATION 05/04/2023 [facility] DATE CREATED AUTHOR AUTHOR'S ORGANIZ ATION 10/09/2024 [facility] DATE CREATED AUTHOR AUTHOR'S ORGANIZ ATION 10/09/2024 [facility] DATE CREATED AUTHOR AUTHOR'S ORGANIZ ATION 11/05/[address] 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 Edel Bullock , DO Attending Provider Activ e JOSH LOZANO Referring Provider Active Team Status: Active Member Role Status Dates Dr. Edel Bullock , Attending Provider, Referring Provider, Other Provider Active No Primary Care Physician Primary Care Provider Active Team Status: Inactive Member Role Status Dates Dr. 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 Start Date [place] [address] [place] [phone] PCP - General Internal Medicine 08/14/24 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 Start Date End Date Generic Provider, [place] [address] PCP - General Patternmaker Plaster 06/15/24 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 Start Date End Date Generic Provider, [place] [address] PCP - General Patternmaker Plaster 06/15/24 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 Start Date End Date Generic Provider, No [place] [address] PCP - General Patternmaker Plaster 06/15/24 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 Steffen Eisneberg MD Primary Care Provider Active Start: February [...] April 07, 2025 Dr. Edel Bullock , Attending Provider Activ e Start: April 07, [...] Active Start: April 19, 2025 Dr. Edel Vande Velde , DO Other Provider Active Start: April 19, [...] Provider Active Start: May 13, 2025 Dr. pAple Lao MD Attending Provider Active Start: May [...] Start: May 24, 2025 Dr. Pee Sargent DO Emergency Provider Active Start: May 24, [...] End: May 28, 2025 Dr. Pee Sargent DO Emergency Provider Active Start: May 24, [...] Start: May 25, 2025 Dr. Pee Sargent DO Emergency Provider Active Start: May 25, [...] Start: May 26, 2025 Dr. Pee Sargent DO Emergency Provider Active Start: May 26, [...] Start: June 01, 2025 Dr. Edel Bullock DO Attending Provider Activ e Start: June 01, 2025 Dr. Edel Bullock DO Referring Provider Activ e Start: June 01, 2025 Team Status: Active Member Role/Relationship Status Dates Dr. Steffen Eisenberg MD Primary Care Provider Active Start: June 03, 2025 Dr. Garrett Hernandez MD Attending Provider Active Start: June 03, 2025 Team Status: Inactive Member Role/Relationship Status Dates Dr. Steffen Eisenberg MD Primary Care Provider Active Start: June 05, 2025 End: June 05, 2025 Dr. Misty Conteh DO Emergency Provider Active S tart: June 05, 2025 End: June 05, 2025 Team Status: Active Member Role/Relationship Status Dates Dr. Steffen Eisenberg MD Primary Care Provider Active Start: May 25, 2025 Dr. Vitor Olguin MD Attending Provider Active Start: May 25, 2025 Dr. Ej Shelton MD Referring Provider Active Start: May 25, 2025 Team Status: Active Member Role/Relationship Status Dates Dr. Steffen Eisenberg MD Primary Care Provider Active Start: June 01, 2025 Dr. Edel Bullock DO Attending Provider Activ e Start: June 01, 2025 Dr. Edel Bullock DO Referring Provider Activ e Start: June 01, 2025 Team Status: Active Member Role/Relationship Status Dates Dr. Steffen Eisenberg MD Primary Care Provider Active Start: June 03, 2025 Dr. Garrett Hernandez MD Attending Provider Active Start: June 03, 2025 Team Status: Inactive Member Role/Relationship Status Dates Dr. Steffen Eisenberg MD Primary Care Provider Active Start: June 05, 2025 End: June 05, 2025 Dr. Misty Conteh DO Emergency Provider Active S tart: June 05, 2025 End: June 05, 2025 Team Status: Active Member Role/Relationship Status Dates Dr. Steffen Eisenberg MD Primary Care Provider Active Start: June 09, 2025 Keysha Carr SURVEYOR ROD HELPER, SURVEYOR ROD HELPER-C Attending Provider Active Start: June 09, 2025 Dr. Garrett Hernandez MD Referring Provider Active Start: June 09, 2025 Team Status: Active Member Role/Relationship Status Dates Dr. Steffen Eisenberg MD Primary Care Provider Active Start: June 09, 2025 Keysha Carr SURVEYOR ROD HELPER, SURVEYOR ROD HELPER-C Attending Provider Active Start: June 09, 2025 Keysha Carr SURVEYOR ROD HELPER, SURVEYOR ROD HELPER-C Other Provider Active S tart: June 09, 2025 Dr. Garrett Hernandez MD Referring Provider Active Start: June 09, 2025 Team Status: Inactive Member Role/Relationship Status Dates Dr. Steffen Eisenberg MD Primary Care Provider Active Start: June 10, 2025 End: June 10, 2025 Dr. Steffen Eisenberg MD Referring Provider Active Start: June 10, 2025 End: June 10, 2025 Dr. Apple Lao MD Attending Provider Active Start: June 10, 2025 End: June 10, 2025 Team Status: Active Member Role/Relationship Status Dates Dr. Steffen Eisenberg MD Primary care physician Active Team Status: Inactive Member Role/Relationship Status Dates Dr. Steffen Eisenberg MD Primary care physician Active Start: February 26, 2025 End: February 26, 2025 Dr. Steffen Eisenberg MD Referring Provider Active Start: February 26, 2025 End: February 26, 2025 Dr. Apple Lao MD Attending physician Active Start: February 26, 2025 End: February 26, 2025 Team Status: Inactive Member Role/Relationship Status Dates Dr. Steffen Eisenberg MD Primary care physician Active Start: February 26, 2025 End: February 26, 2025 Dr. Apple Lao MD Attending physician Active Start: February 26, 2025 End: February 26, 2025 Dr. Apple Lao MD Referring Provider Active Start: February 26, 2025 End: February 26, 2025 Team Status: Inactive Member Role/Relationship Status Dates Dr. Steffen Eisenberg MD Primary care physician Active Start: March 05, 2025 End: March 05, 2025 Kiley Jain CNM Attending physician Active Start: March 05, 2025 End: March 05, 2025 Kiley Jain CNM Referring Provider Active S tart: March 05, 2025 End: March 05, 2025 Team Status: Inactive Member Role/Relationship Status Dates Dr. Steffen Eisenberg MD Primary care physician Active Start: March 10, 2025 End: March 10, 2025 Dr. Steffen Eisenberg MD Referring Provider Active Start: March 10, 2025 End: March 10, 2025 Dr. Edel Bullock DO Attending physician Acti ve Start: March 10, 2025 End: March 10, 2025 Team Status: Inactive Member Role/Relationship Status Dates Dr. Steffen Eisenberg MD Primary care physician Active Start: March 10, 2025 End: March 10, 2025 Dr. Edel Bullock DO Attending physician Acti ve Start: March 10, 2025 End: March 10, 2025 Dr. Edel Bullock DO Referring Provider Activ e Start: March 10, 2025 End: March 10, 2025 Team Status: Inactive Member Role/Relationship Status Dates Dr. Steffen Eisenberg MD Primary care physician Active Start: March 26, 2025 End: March 26, 2025 Dr. Steffen Eisenberg MD Referring Provider Active Start: March 26, 2025 End: March 26, 2025 Dr. Edel Bullock DO Attending physician Acti ve Start: March 26, 2025 End: March 26, 2025 Team Status: Inactive Member Role/Relationship Status Dates Dr. Steffen Eisenberg MD Primary care physician Active Start: April 07, 2025 End: April 07, 2025 Dr. Steffen Eisenberg MD Referring Provider Active Start: April 07, 2025 End: April 07, 2025 Dr. Edel Bullock DO Attending physician Acti ve Start: April 07, 2025 End: April 07, 2025 Team Status: Inactive Member Role/Relationship Status Dates Dr. Steffen Eisenberg MD Primary care physician Active Start: April 07, 2025 End: April 07, 2025 Dr. Edel Bullock DO Attending physician Acti ve Start: April 07, 2025 End: April 07, 2025 Dr. Edel Bullock DO Referring Provider Activ e Start: April 07, 2025 End: April 07, 2025 Team Status: Inactive Member Role/Relationship Status Dates Dr. Steffen Eisenberg MD Primary care physician Active Start: April 15, 2025 End: April 15, 2025 Dr. Edel Bullock DO Attending physician Acti ve Start: April 15, 2025 End: April 15, 2025 Dr. Edel Bullock DO Referring Provider Activ e Start: April 15, 2025 End: April 15, 2025 Team Status: Inactive Member Role/Relationship Status Dates Dr. Steffen Eisenberg MD Primary care physician Active Start: April 19, 2025 End: April 19, 2025 Dr. Edel Bullock DO Nurse Practitioner Activ e Start: April 19, 2025 End: April 19, 2025 Kiley Jain CNM Attending physician Active Start: April 19, 2025 End: April 19, 2025 Kiley Jain CNM Referring Provider Active S tart: April 19, 2025 End: April 19, 2025 Team Status: Active Member Role/Relationship Status Dates Dr. Steffen Eisenberg MD Primary care physician Active Start: April 19, 2025 Dr. Edel Bullock DO Nurse Practitioner Activ e Start: April 19, 2025 Kiley Jain CNM Attending physician Active Start: April 19, 2025 Kiley Jain CNM Referring Provider Active S tart: April 19, 2025 Kiley Jain CNM Nurse Practitioner Active S tart: April 19, 2025 Team Status: Inactive Member Role/Relationship Status Dates Dr. Steffen Eisenberg MD Primary care physician Active Start: April 20, 2025 End: April 20, 2025 Dr. Steffen Eisenberg MD Referring Provider Active Start: April 20, 2025 End: April 20, 2025 Dr. Apple Lao MD Attending physician Active Start: April 20, 2025 End: April 20, 2025 Team Status: Inactive Member Role/Relationship Status Dates Dr. Steffen Eisenberg MD Primary care physician Active Start: April 22, 2025 End: April 22, 2025 Dr. Edel Bullock DO Attending physician Acti ve Start: April 22, 2025 End: April 22, 2025 Dr. Edel Bullock DO Referring Provider Activ e Start: April 22, 2025 End: April 22, 2025 Team Status: Inactive Member Role/Relationship Status Dates Dr. Steffen Eisenberg MD Primary care physician Active Start: April 28, 2025 End: April 28, 2025 Dr. Steffen Eisenberg MD Referring Provider Active Start: April 28, 2025 End: April 28, 2025 Dr. Edel Bullock DO Attending physician Acti ve Start: April 28, 2025 End: April 28, 2025 Team Status: Inactive Member Role/Relationship Status Dates Dr. Steffen Eisenberg MD Primary care physician Active Start: April 28, 2025 End: April 28, 2025 Dr. Edel Bullock DO Attending physician Acti ve Start: April 28, 2025 End: April 28, 2025 Team Status: Inactive Member Role/Relationship Status Dates Dr. Steffen Eisenberg MD Primary care physician Active Start: May 06, 2025 End: May 06, 2025 Dr. Steffen Eisenberg MD Referring Provider Active Start: May 06, 2025 End: May 06, 2025 Dr. Edel Bullock , DO Attending physician Acti ve Start: May 06, 2025 End: May 06, 2025 Team Status: Inactive Member Role/Relationship Status Dates Dr. Steffen Eisenberg MD Primary care physician Active Start: May 12, 2025 End: May 15, 2025 Dr. Edel Bullock , DO Admitting physician Acti ve Start: May 12, 2025 End: May 15, 2025 Dr. Edel Bullock , DO Attending physician Acti ve Start: May 12, 2025 End: May 15, 2025 Dr. Edel Bullock , DO Referring Provider Activ e Start: May 12, 2025 End: May 15, 2025 Team Status: Active Member Role/Relationship Status Dates Dr. Steffen Eisenberg MD Primary care physician Active Start: May 12, 2025 Dr. Edel Bullock DO Admitting physician Acti ve Start: May 12, 2025 Dr. Edel Bullock , DO Attending physician Acti ve Start: May 12, 2025 Dr. Edel Bullock , DO Nurse Practitioner Activ e Start: May 12, 2025 Team Status: Active Member Role/Relationship Status Dates Dr. Steffen Eisenberg MD Primary care physician Active Start: May 13, 2025 Dr. Edel Bullock DO Admitting physician Acti ve Start: May 13, 2025 Dr. Edel Bullock , DO Referring Provider Activ e Start: May 13, 2025 Dr. Edel Bullock , DO Nurse Practitioner Activ e Start: May 13, 2025 Dr. Apple Lao MD Attending physician Active Start: May 13, 2025 Team Status: Active Member Role/Relationship Status Dates Dr. Steffen Eisenberg MD Primary care physician Active Start: May 14, 2025 Dr. Edel Bullock , DO Admitting physician Acti ve Start: May 14, 2025 Dr. Edel Bullock , DO Referring Provider Activ e Start: May 14, 2025 Dr. Edel Bullock , DO Nurse Practitioner Activ e Start: May 14, 2025 Mariana Jonas CNM Attending physician Active Start: May 14, 2025 Team Status: Active Member Role/Relationship Status Dates Dr. Steffen Eisenberg MD Primary care physician Active Start: May 15, 2025 Dr. Edel Bullock DO Admitting physician Acti ve Start: May 15, 2025 Dr. Edel Bullock DO Referring Provider Activ e Start: May 15, 2025 Dr. Edel Bullock DO Nurse Practitioner Activ e Start: May 15, 2025 Mariana Jonas CNM Attending physician Active Start: May 15, 2025 Team Status: Active Member Role/Relationship Status Dates Dr. Steffen Eisenberg MD Primary care physician Active Start: May 24, 2025 Dr. Pee Sargent DO Emergency Departm ent Physician Active Start: May 24, 2025 Dr. Edel Bullock DO Admitting physician Active Start: May 24, 2025 Dr. Edel Bullock DO Attending physician Active Start: May 24, 2025 Dr. Edel Bullock DO Nurse Practitioner Active Start: May 24, 2025 Team Status: Inactive Member Role/Relationship Status Dates Dr. Steffen Eisenberg MD Primary care physician Active Start: May 24, 2025 End: May 28, 2025 Dr. Pee Sargent DO Emergency Departm ent Physician Active Start: May 24, 2025 End: May 28, 2025 Dr. Edel Bullock DO Admitting physician Active Start: May 24, 2025 End: May 28, 2025 Dr. Edel Bullock DO Attending physician Active Start: May 24, 2025 End: May 28, 2025 Dr. Levon Schmid MD Nurse Practitioner Active Start: May 24, 2025 End: May 28, 2025 Team Status: Active Member Role/Relationship Status Dates Dr. Steffen Eisenberg MD Primary care physician Active Start: May 25, 2025 Dr. Vitor Olguin MD Attending physician Active Start: May 25, 2025 Dr. Ej Shelton MD Referring Provider Active Start: May 25, 2025 Team Status: Active Member Role/Relationship Status Dates Dr. Steffen Eisenberg MD Primary care physician Active Start: May 25, 2025 Dr. Pee Sargent , DO Emergency Departm ent Physician Active Start: May 25, 2025 Dr. Edel Bullock DO Admitting physician Active Start: May 25, 2025 Dr. Edel Bullock DO Attending physician Active Start: May 25, 2025 Dr. Edel Bullock DO Nurse Practitioner Active Start: May 25, 2025 Team Status: Active Member Role/Relationship Status Dates Dr. Steffen Eisenberg MD Primary care physician Active Start: May 26, 2025 Dr. Pee Sargent , DO Emergency Departm ent Physician Active Start: May 26, 2025 Dr. Edel Bullock DO Admitting physician Active Start: May 26, 2025 Dr. Edel Bullock DO Attending physician Active Start: May 26, 2025 Dr. Edel Bullock DO Nurse Practitioner Active Start: May 26, 2025 Team Status: Active Member Role/Relationship Status Dates Dr. Steffen Eisenberg MD Primary care physician Active Start: May 27, 2025 Dr. Pee Sargent , Emergency Departm ent Physician Active Start: May 27, 2025 Dr. Edel Bullock DO Admitting physician Active Start: May 27, 2025 Dr. Edel Bullock DO Attending physician Active Start: May 27, 2025 Dr. Edel Bullock DO Nurse Practitioner Active Start: May 27, 2025 Dr. Levon Schmid MD Nurse Practitioner Active Start: May 27, 2025 Team Status: Active Member Role/Relationship Status Dates Dr. Steffen Eisenberg MD Primary care physician Active Start: May 27, 2025 Dr. Pee Sargent , DO Emergency Departm ent Physician Active Start: May 27, 2025 Dr. Edel Bullock DO Admitting physician Active Start: May 27, 2025 Dr. Edel Bullock DO Nurse Practitioner Active Start: May 27, 2025 Dr. Levon Schmid MD Nurse Practitioner Active Start: May 27, 2025 Dr. Garrett Hernandez MD Attending physician Active Start: May 27, 2025 Team Status: Active Member Role/Relationship Status Dates Dr. Steffen Eisenberg MD Primary care physician Active Start: May 28, 2025 Dr. Pee Sargent , Emergency Departm ent Physician Active Start: May 28, 2025 Dr. Edel Bullock DO Admitting physician Active Start: May 28, 2025 Dr. Edel Bullock DO Attending physician Active Start: May 28, 2025 Dr. Edel Bullock DO Nurse Practitioner Active Start: May 28, 2025 Dr. Levon Schmid MD Nurse Practitioner Active Start: May 28, 2025 Team Status: Active Member Role/Relationship Status Dates Dr. Steffen Eisenberg MD Primary care physician Active Start: May 28, 2025 Dr. Pee Sargent , Emergency Departm ent Physician Active Start: May 28, 2025 Dr. Edel Bullock DO Admitting physician Active Start: May 28, 2025 Dr. Edel Bullock DO Nurse Practitioner Active Start: May 28, 2025 Dr. Levon Schmid MD Nurse Practitioner Active Start: May 28, 2025 Dr. Garrett Hernandez MD Attending physician Active Start: May 28, 2025 Team Status: Inactive Member Role/Relationship Status Dates Dr. Steffen Eisenberg MD Primary care physician Active Start: June 01, 2025 End: June 01, 2025 Dr. Edel Bullock DO Attending physician Active Start: May End: June 01, 2025 Dr. Edel Bullock DO Referring Provider Active Start: May End: June 01, 2025 Team Status: Active Member Role/Relationship Status Dates Dr. Steffen Eisenberg MD Primary care physician Active Start: June 03, 2025 Dr. Garrett Hernandez MD Attending physician Active Start: June 03, 2025 Team Status: Inactive Member Role/Relationship Status Dates Dr. Steffen Eisenberg MD Primary care physician Active Start: June 05, 2025 End: June 05, 2025 Dr. Misty Conteh DO Attending physician Active Start: June 05, 2025 End: June 05, 2025 Dr. Misty Conteh DO Emergency Departmen t Physician Active Start: June 05, 2025 End: June 05, 2025 Team Status: Active Member Role/Relationship Status Dates Dr. Steffen Eisenberg MD Primary care physician Active Start: June 09, 2025 Keysha Carr SURVEYOR ROD HELPER, SURVEYOR R[employer] HELPER-C Attending physician Active Start: June 09, 2025 Keysha Carr SURVEYOR ROD HELPER, SURVEYOR R[employer] HELPER-C Nurse Practitioner Active Start: June 09, 2025 Dr. Garrett Hernandez MD Referring Provider Active Start: June 09, 2025 Team Status: Inactive Member Role/Relationship Status Dates Dr. Steffen Eisenberg MD Primary care physician Active Start: June 10, 2025 End: June 10, 2025 Dr. Steffen Eisenberg MD Referring Provider Active Start: June 10, 2025 End: June 10, 2025 Dr. Apple Lao MD Attending physician Active Start: June 10, 2025 End: June 10, 2025 Team Status: Active Member Role/Relationship Status Dates Dr. Steffen Eisenberg MD Primary care physician Active Start: June 18, 2025 Dr. Garrett Hernandez MD Referring Provider Active Start: June 18, 2025 Dr. Rekha Pruett , Attending physician Active S tart: June 18, 2025 Team Status: Inactive Member Role/Relationship Status Dates Dr. Steffen Eisenberg MD Primary care physician Active Start: March 05, 2025 End: March 05, 2025 Kiley Jain CNM Attending physician Active Start: March 05, 2025 End: March 05, 2025 Kiley Jain CNM Referring Provider Active S tart: March 05, 2025 End: March 05, 2025 Team Status: Inactive Member Role/Relationship Status Dates Dr. Steffen Eisenberg MD Primary care physician Active Start: March 10, 2025 End: March 10, 2025 Dr. Steffen Eisenberg MD Referring Provider Active Start: March 10, 2025 End: March 10, 2025 Dr. Edel Bullock , Attending physician Acti ve Start: March 10, 2025 End: March 10, 2025 Team Status: Inactive Member Role/Relationship Status Dates Dr. Steffen Eisenberg MD Primary care physician Active Start: March 10, 2025 End: March 10, 2025 Dr. Edel Bullock DO Attending physician Acti ve Start: March 10, 2025 End: March 10, 2025 Dr. Edel Bullock DO Referring Provider Activ e Start: March 10, 2025 End: March 10, 2025 Team Status: Inactive Member Role/Relationship Status Dates Dr. Steffen Eisenberg MD Primary care physician Active Start: March 26, 2025 End: March 26, 2025 Dr. Steffen Eisenberg MD Referring Provider Active Start: March 26, 2025 End: March 26, 2025 Dr. Edel Bullock DO Attending physician Acti ve Start: March 26, 2025 End: March 26, 2025 Team Status: Inactive Member Role/Relationship Status Dates Dr. Steffen Eisenberg MD Primary care physician Active Start: April 07, 2025 End: April 07, 2025 Dr. Steffen Eisenberg MD Referring Provider Active Start: April 07, 2025 End: April 07, 2025 Dr. Edel Bullock DO Attending physician Acti ve Start: April 07, 2025 End: April 07, 2025 Team Status: Inactive Member Role/Relationship Status Dates Dr. Steffen Eisenberg MD Primary care physician Active Start: April 07, 2025 End: April 07, 2025 Dr. Edel Bullock DO Attending physician Acti ve Start: April 07, 2025 End: April 07, 2025 Dr. Edel Bullock DO Referring Provider Activ e Start: April 07, 2025 End: April 07, 2025 Team Status: Inactive Member Role/Relationship Status Dates Dr. Steffen Eisenberg MD Primary care physician Active Start: April 15, 2025 End: April 15, 2025 Dr. Edel Bullock DO Attending physician Acti ve Start: April 15, 2025 End: April 15, 2025 Dr. Edel Bullock DO Referring Provider Activ e Start: April 15, 2025 End: April 15, 2025 Team Status: Inactive Member Role/Relationship Status Dates Dr. Steffen Eisenberg MD Primary care physician Active Start: April 19, 2025 End: April 19, 2025 Dr. Edel Bullock DO Nurse Practitioner Activ e Start: April 19, 2025 End: April 19, 2025 Kiley Jain CNM Attending physician Active Start: April 19, 2025 End: April 19, 2025 Kiley Jain CNM Referring Provider Active S tart: April 19, 2025 End: April 19, 2025 Team Status: Active Member Role/Relationship Status Dates Dr. Steffen Eisenberg MD Primary care physician Active Start: April 19, 2025 Dr. Edel Bullock DO Nurse Practitioner Activ e Start: April 19, 2025 Kiley Jain CNM Attending physician Active Start: April 19, 2025 Kiley Jain CNM Referring Provider Active S tart: April 19, 2025 Kiley Jain CNM Nurse Practitioner Active S tart: April 19, 2025 Team Status: Inactive Member Role/Relationship Status Dates Dr. Steffen Eisenberg MD Primary care physician Active Start: April 20, 2025 End: April 20, 2025 Dr. Steffen Eisenberg MD Referring Provider Active Start: April 20, 2025 End: April 20, 2025 Dr. Apple Loa MD Attending physician Active Start: April 20, 2025 End: April 20, 2025 Team Status: Inactive Member Role/Relationship Status Dates Dr. Steffen Eisenberg MD Primary care physician Active Start: April 22, 2025 End: April 22, 2025 Dr. Edel Bullock DO Attending physician Acti ve Start: April 22, 2025 End: April 22, 2025 Dr. Edel Bullock DO Referring Provider Activ e Start: April 22, 2025 End: April 22, 2025 Team Status: Inactive Member Role/Relationship Status Dates Dr. Steffen Eisenberg MD Primary care physician Active Start: April 28, 2025 End: April 28, 2025 Dr. Steffen Eisenberg MD Referring Provider Active Start: April 28, 2025 End: April 28, 2025 Dr. Edel Bullock DO Attending physician Acti ve Start: April 28, 2025 End: April 28, 2025 Team Status: Inactive Member Role/Relationship Status Dates Dr. Steffen Eisenberg MD Primary care physician Active Start: April 28, 2025 End: April 28, 2025 Dr. Edel Bullock , DO Attending physician Acti ve Start: April 28, 2025 End: April 28, 2025 Team Status: Inactive Member Role/Relationship Status Dates Dr. Steffen Eisenberg MD Primary care physician Active Start: May 06, 2025 End: May 06, 2025 Dr. Steffen Eisenberg MD Referring Provider Active Start: May 06, 2025 End: May 06, 2025 Dr. Edel Bullock , DO Attending physician Acti ve Start: May 06, 2025 End: May 06, 2025 Team Status: Inactive Member Role/Relationship Status Dates Dr. Steffen Eisenberg MD Primary care physician Active Start: May 12, 2025 End: May 15, 2025 Dr. Edel Bullock , DO Admitting physician Acti ve Start: May 12, 2025 End: May 15, 2025 Dr. Edel Bullock , DO Attending physician Acti ve Start: May 12, 2025 End: May 15, 2025 Dr. Edel Bullock , DO Referring Provider Activ e Start: May 12, 2025 End: May 15, 2025 Team Status: Active Member Role/Relationship Status Dates Dr. Steffen Eisenberg MD Primary care physician Active Start: May 12, 2025 Dr. Edel Bullock DO Admitting physician Acti ve Start: May 12, 2025 Dr. Edel Bullock , DO Attending physician Acti ve Start: May 12, 2025 Dr. Edel Bullock , DO Nurse Practitioner Activ e Start: May 12, 2025 Team Status: Active Member Role/Relationship Status Dates Dr. Steffen Eisenberg MD Primary care physician Active Start: May 13, 2025 Dr. Edel Bullock , DO Admitting physician Acti ve Start: May 13, 2025 Dr. Edel Bullock , DO Referring Provider Activ e Start: May 13, 2025 Dr. Edel Bullock , DO Nurse Practitioner Activ e Start: May 13, 2025 Dr. Apple Lao MD Attending physician Active Start: May 13, 2025 Team Status: Active Member Role/Relationship Status Dates Dr. Steffen Eisenberg MD Primary care physician Active Start: May 14, 2025 Dr. Edel Bullock DO Admitting physician Acti ve Start: May 14, 2025 Dr. Edel Bullock DO Referring Provider Activ e Start: May 14, 2025 Dr. Edel Bullock DO Nurse Practitioner Activ e Start: May 14, 2025 Mariana Jonas CNM Attending physician Active Start: May 14, 2025 Team Status: Active Member Role/Relationship Status Dates Dr. Steffen Eisenberg MD Primary care physician Active Start: May 15, 2025 Dr. Edel Bullock DO Admitting physician Acti ve Start: May 15, 2025 Dr. Edel Bullock DO Referring Provider Activ e Start: May 15, 2025 Dr. Edel Bullock DO Nurse Practitioner Activ e Start: May 15, 2025 Mariana Jonas CNM Attending physician Active Start: May 15, 2025 Team Status: Active Member Role/Relationship Status Dates Dr. Steffen Eisenberg MD Primary care physician Active Start: May 24, 2025 Dr. Pee Sargent , Emergency Departm ent Physician Active Start: May 24, 2025 Dr. Edel Bullock DO Admitting physician Active Start: May 24, 2025 Dr. Edel Bullock DO Attending physician Active Start: May 24, 2025 Dr. Edel Bullock DO Nurse Practitioner Active Start: May 24, 2025 Team Status: Inactive Member Role/Relationship Status Dates Dr. Steffen Eisenberg MD Primary care physician Active Start: May 24, 2025 End: May 28, 2025 Dr. Pee Sargent , Emergency Departm ent Physician Active Start: May 24, 2025 End: May 28, 2025 Dr. Edel Bullock DO Admitting physician Active Start: May 24, 2025 End: May 28, 2025 Dr. Edel Bullock DO Attending physician Active Start: May 24, 2025 End: May 28, 2025 Dr. Levon Schmid MD Nurse Practitioner Active Start: May 24, 2025 End: May 28, 2025 Team Status: Active Member Role/Relationship Status Dates Dr. Steffen Eisenberg MD Primary care physician Active Start: May 25, 2025 Dr. Vitor Olguin MD Attending physician Active Start: May 25, 2025 Dr. Ej Shelton MD Referring Provider Active Start: May 25, 2025 Team Status: Active Member Role/Relationship Status Dates Dr. Steffen Eisenberg MD Primary care physician Active Start: May 25, 2025 Dr. Pee Sargent , DO Emergency Departm ent Physician Active Start: May 25, 2025 Dr. Edel Bullock DO Admitting physician Active Start: May 25, 2025 Dr. Edel Bullock DO Attending physician Active Start: May 25, 2025 Dr. Edel Bullock DO Nurse Practitioner Active Start: May 25, 2025 Team Status: Active Member Role/Relationship Status Dates Dr. Steffen Eisenberg MD Primary care physician Active Start: May 26, 2025 Dr. Pee Sargent , DO Emergency Departm ent Physician Active Start: May 26, 2025 Dr. Edel Bullock DO Admitting physician Active Start: May 26, 2025 Dr. Edel Bullock DO Attending physician Active Start: May 26, 2025 Dr. Edel Bullock DO Nurse Practitioner Active Start: May 26, 2025 Team Status: Active Member Role/Relationship Status Dates Dr. Steffen Eisenberg MD Primary care physician Active Start: May 27, 2025 Dr. Pee Sargent DO Emergency Departm ent Physician Active Start: May 27, 2025 Dr. Edel Bullock DO Admitting physician Active Start: May 27, 2025 Dr. Edel Bullock DO Attending physician Active Start: May 27, 2025 Dr. Edel Bullock DO Nurse Practitioner Active Start: May 27, 2025 Dr. Levon Schmid MD Nurse Practitioner Active Start: May 27, 2025 Team Status: Active Member Role/Relationship Status Dates Dr. Steffen Eisenberg MD Primary care physician Active Start: May 27, 2025 Dr. Pee Sargent , Emergency Departm ent Physician Active Start: May 27, 2025 Dr. Edel Bullock DO Admitting physician Active Start: May 27, 2025 Dr. Edel Bullock DO Referring Provider Active Start: May 27, 2025 Dr. Edel Bullock DO Nurse Practitioner Active Start: May 27, 2025 Dr. Levon Schmid MD Nurse Practitioner Active Start: May 27, 2025 Dr. Garrett Hernandez MD Attending physician Active Start: May 27, 2025 Team Status: Active Member Role/Relationship Status Dates Dr. Steffen Eisenberg MD Primary care physician Active Start: May 28, 2025 Dr. Pee Sargent , Emergency Departm ent Physician Active Start: May 28, 2025 Dr. Edel Bullock DO Admitting physician Active Start: May 28, 2025 Dr. Edel Bullock DO Attending physician Active Start: May 28, 2025 Dr. Edel Bullock DO Nurse Practitioner Active Start: May 28, 2025 Dr. Levon Schmid MD Nurse Practitioner Active Start: May 28, 2025 Team Status: Active Member Role/Relationship Status Dates Dr. Steffen Eisenberg MD Primary care physician Active Start: May 28, 2025 Dr. Pee Sargent DO Emergency Departm ent Physician Active Start: May 28, 2025 Dr. Edel Bullock DO Admitting physician Active Start: May 28, 2025 Dr. Edel Bullock DO Nurse Practitioner Active Start: May 28, 2025 Dr. Levon Schmid MD Nurse Practitioner Active Start: May 28, 2025 Dr. Garrett Hernandez MD Attending physician Active Start: May 28, 2025 Team Status: Inactive Member Role/Relationship Status Dates Dr. Steffen Eisenberg MD Primary care physician Active Start: June 01, 2025 End: June 01, 2025 Dr. Edel Bullock DO Attending physician Active Start: May End: June 01, 2025 Dr. Edel Bullock DO Referring Provider Active Start: May End: June 01, 2025 Team Status: Active Member Role/Relationship Status Dates Dr. Steffen Eisenberg MD Primary care physician Active Start: June 03, 2025 Dr. Garrett Hernandez MD Attending physician Active Start: June 03, 2025 Team Status: Inactive Member Role/Relationship Status Dates Dr. Steffen Eisenberg MD Primary care physician Active Start: June 05, 2025 End: June 05, 2025 Dr. Misty Conteh DO Attending physician Active Start: June 05, 2025 End: June 05, 2025 Dr. [facility] Active Start: June 05, 2025 End: June 05, 2025 Team Status: Active Member Role/Relationship Status Dates Dr. Steffen Eisenberg MD Primary care physician Active Start: June 09, 2025 Keysha Carr SURVEYOR ROD HELPER, SURVEYOR ROD HELPER-C Attending physician Active Start: June 09, 2025 Keysha Carr SURVEYOR ROD HELPER, SURVEYOR ROD HELPER-C Nurse Practitioner Active Start: June 09, 2025 Dr. Garrett Hernandez MD Referring Provider Active Start: June 09, 2025 Team Status: Inactive Member Role/Relationship Status Dates Dr. Steffen Eisenberg MD Primary care physician Active Start: June 10, 2025 End: June 10, 2025 Dr. Steffen Eisenberg MD Referring Provider Active Start: June 10, 2025 End: June 10, 2025 Dr. Apple Lao MD Attending physician Active Start: June 10, 2025 End: June 10, 2025 Team Status: Inactive Member Role/Relationship Status Dates Dr. Steffen Eisenberg MD Primary care physician Active Start: June 23, 2025 End: June 23, 2025 Dr. Steffen Eisenberg MD Referring Provider Active Start: June 23, 2025 End: June 23, 2025 Dr. Edel Bullock DO Attending physician Active Start: May End: June 23, 2025 Team Status: Inactive Member Role/Relationship Status Dates Dr. Steffen Eisenberg MD Primary care physician Active Start: June 25, 2025 End: June 29, 2025 Dr. Garrett Hernandez MD Referring Provider Active Start: June 25, 2025 End: June 29, 2025 Dr. Rekha Pruett DO Attending physician Active S tart: June 25, 2025 End: June 29, 2025 Team Status: Inactive Member Role/Relationship Status Dates Dr. Steffen Eisenberg MD Primary care physician Active Start: April 07, 2025 End: April 07, 2025 Dr. Steffen Eisenberg MD Referring Provider Active Start: April 07, 2025 End: April 07, 2025 Dr. Edel Bullock DO Attending physician Acti ve Start: April 07, 2025 End: April 07, 2025 Team Status: Inactive Member Role/Relationship Status Dates Dr. Steffen Eisenberg MD Primary care physician Active Start: April 07, 2025 End: April 07, 2025 Dr. Edel Bullock DO Attending physician Acti ve Start: April 07, 2025 End: April 07, 2025 Dr. Edel Bullock DO Referring Provider Activ e Start: April 07, 2025 End: April 07, 2025 Team Status: Inactive Member Role/Relationship Status Dates Dr. Steffen Eisenberg MD Primary care physician Active Start: April 15, 2025 End: April 15, 2025 Dr. Edel Bullock DO Attending physician Acti ve Start: April 15, 2025 End: April 15, 2025 Dr. Edel Bullock DO Referring Provider Activ e Start: April 15, 2025 End: April 15, 2025 Team Status: Inactive Member Role/Relationship Status Dates Dr. Steffen Eisenberg MD Primary care physician Active Start: April 19, 2025 End: April 19, 2025 Dr. Edel Bullock DO Nurse Practitioner Activ e Start: April 19, 2025 End: April 19, 2025 Kiley Jain CNM Attending physician Active Start: April 19, 2025 End: April 19, 2025 Kiley Jain CNM Referring Provider Active S tart: April 19, 2025 End: April 19, 2025 Team Status: Active Member Role/Relationship Status Dates Dr. Steffen Eisenberg MD Primary care physician Active Start: April 19, 2025 Dr. Edel Bullock DO Nurse Practitioner Activ e Start: April 19, 2025 Kiley Jain CNM Attending physician Active Start: April 19, 2025 Kiley Jain CNM Referring Provider Active S tart: April 19, 2025 Kiley Jain CNM Nurse Practitioner Active S tart: April 19, 2025 Team Status: Inactive Member Role/Relationship Status Dates Dr. Steffen Eisenberg MD Primary care physician Active Start: April 20, 2025 End: April 20, 2025 Dr. Steffen Eisenberg MD Referring Provider Active Start: April 20, 2025 End: April 20, 2025 Dr. Apple Lao MD Attending physician Active Start: April 20, 2025 End: April 20, 2025 Team Status: Inactive Member Role/Relationship Status Dates Dr. Steffen Eisenberg MD Primary care physician Active Start: April 22, 2025 End: April 22, 2025 Dr. Edel Bullock DO Attending physician Acti ve Start: April 22, 2025 End: April 22, 2025 Dr. Edel Bullock DO Referring Provider Activ e Start: April 22, 2025 End: April 22, 2025 Team Status: Inactive Member Role/Relationship Status Dates Dr. Steffen Eisenberg MD Primary care physician Active Start: April 28, 2025 End: April 28, 2025 Dr. Steffen Eisenberg MD Referring Provider Active Start: April 28, 2025 End: April 28, 2025 Dr. Edel Bullock DO Attending physician Acti ve Start: April 28, 2025 End: April 28, 2025 Team Status: Inactive Member Role/Relationship Status Dates Dr. Steffen Eisenberg MD Primary care physician Active Start: April 28, 2025 End: April 28, 2025 Dr. Edel Bullock DO Attending physician Acti ve Start: April 28, 2025 End: April 28, 2025 Team Status: Inactive Member Role/Relationship Status Dates Dr. Steffen Eisenberg MD Primary care physician Active Start: May 06, 2025 End: May 06, 2025 Dr. Steffen Eisenberg MD Referring Provider Active Start: May 06, 2025 End: May 06, 2025 Dr. Edel Bullock , DO Attending physician Acti ve Start: May 06, 2025 End: May 06, 2025 Team Status: Inactive Member Role/Relationship Status Dates Dr. Steffen Eisenberg MD Primary care physician Active Start: May 12, 2025 End: May 15, 2025 Dr. Edel Bullock , DO Admitting physician Acti ve Start: May 12, 2025 End: May 15, 2025 Dr. Edel Bullock , DO Attending physician Acti ve Start: May 12, 2025 End: May 15, 2025 Dr. Edel Bullock , DO Referring Provider Activ e Start: May 12, 2025 End: May 15, 2025 Team Status: Active Member Role/Relationship Status Dates Dr. Steffen Eisenberg MD Primary care physician Active Start: May 12, 2025 Dr. Edel Bullock DO Admitting physician Acti ve Start: May 12, 2025 Dr. Edel Bullock , DO Attending physician Acti ve Start: May 12, 2025 Dr. Edel Bullock , DO Nurse Practitioner Activ e Start: May 12, 2025 Team Status: Active Member Role/Relationship Status Dates Dr. Steffen Eisenberg MD Primary care physician Active Start: May 13, 2025 Dr. Edel Bullock , DO Admitting physician Acti ve Start: May 13, 2025 Dr. Edel Bullock , DO Referring Provider Activ e Start: May 13, 2025 Dr. Edel Bullock , DO Nurse Practitioner Activ e Start: May 13, 2025 Dr. Apple Lao MD Attending physician Active Start: May 13, 2025 Team Status: Active Member Role/Relationship Status Dates Dr. Steffen Eisenberg MD Primary care physician Active Start: May 14, 2025 Dr. Edel Bullock , DO Admitting physician Acti ve Start: May 14, 2025 Dr. Edel Bullock , DO Referring Provider Activ e Start: May 14, 2025 Dr. Edel Bullock , DO Nurse Practitioner Activ e Start: May 14, 2025 Mariana Jonas CNM Attending physician Active Start: May 14, 2025 Team Status: Active Member Role/Relationship Status Dates Dr. Steffen Eisenberg MD Primary care physician Active Start: May 15, 2025 Dr. Edel Bullock DO Admitting physician Acti ve Start: May 15, 2025 Dr. Edel Bullock DO Referring Provider Activ e Start: May 15, 2025 Dr. Edel Bullock DO Nurse Practitioner Activ e Start: May 15, 2025 Mariana Jonas CNM Attending physician Active Start: May 15, 2025 Team Status: Active Member Role/Relationship Status Dates Dr. Steffen Eisenberg MD Primary care physician Active Start: May 24, 2025 Dr. Pee Sargent , Emergency Departm ent Physician Active Start: May 24, 2025 Dr. Edel Bullock DO Admitting physician Active Start: May 24, 2025 Dr. Edel Bullock DO Attending physician Active Start: May 24, 2025 Dr. Edel Bullock DO Nurse Practitioner Active Start: May 24, 2025 Team Status: Inactive Member Role/Relationship Status Dates Dr. Steffen Eisenberg MD Primary care physician Active Start: May 24, 2025 End: May 28, 2025 Dr. Pee Sargent , Emergency Departm ent Physician Active Start: May 24, 2025 End: May 28, 2025 Dr. Edel Bullock DO Admitting physician Active Start: May 24, 2025 End: May 28, 2025 Dr. Edel Bullock DO Attending physician Active Start: May 24, 2025 End: May 28, 2025 Dr. Levon Schmid MD Nurse Practitioner Active Start: May 24, 2025 End: May 28, 2025 Team Status: Active Member Role/Relationship Status Dates Dr. Steffen Eisenberg MD Primary care physician Active Start: May 25, 2025 Dr. Vitor Olguin MD Attending physician Active Start: May 25, 2025 Dr. Ej Shelton MD Referring Provider Active Start: May 25, 2025 Team Status: Active Member Role/Relationship Status Dates Dr. Steffen Eisenberg MD Primary care physician Active Start: May 25, 2025 Dr. Pee Sargent , DO Emergency Departm ent Physician Active Start: May 25, 2025 Dr. Edel Bullock DO Admitting physician Active Start: May 25, 2025 Dr. Edel Bullock DO Attending physician Active Start: May 25, 2025 Dr. Edel Bullock DO Nurse Practitioner Active Start: May 25, 2025 Team Status: Active Member Role/Relationship Status Dates Dr. Steffen Eisenberg MD Primary care physician Active Start: May 26, 2025 Dr. Pee Sargent , DO Emergency Departm ent Physician Active Start: May 26, 2025 Dr. Edel Bullock DO Admitting physician Active Start: May 26, 2025 Dr. Edel Bullock DO Attending physician Active Start: May 26, 2025 Dr. Edel Bullock DO Nurse Practitioner Active Start: May 26, 2025 Team Status: Active Member Role/Relationship Status Dates Dr. Steffen Eisenberg MD Primary care physician Active Start: May 27, 2025 Dr. Pee Sargent , Emergency Departm ent Physician Active Start: May 27, 2025 Dr. Edel Bullock DO Admitting physician Active Start: May 27, 2025 Dr. Edel Bullock DO Attending physician Active Start: May 27, 2025 Dr. Edel Bullock DO Nurse Practitioner Active Start: May 27, 2025 Dr. Levon Schmid MD Nurse Practitioner Active Start: May 27, 2025 Team Status: Active Member Role/Relationship Status Dates Dr. Steffen Eisenberg MD Primary care physician Active Start: May 27, 2025 Dr. Pee Sargent DO Emergency Departm ent Physician Active Start: May 27, 2025 Dr. Edel Bullock DO Admitting physician Active Start: May 27, 2025 Dr. Edel Bullock DO Referring Provider Active Start: May 27, 2025 Dr. Edel Bullock DO Nurse Practitioner Active Start: May 27, 2025 Dr. Levon Schmid MD Nurse Practitioner Active Start: May 27, 2025 Dr. Garrett Hernandez MD Attending physician Active Start: May 27, 2025 Team Status: Active Member Role/Relationship Status Dates Dr. Steffen Eisenberg MD Primary care physician Active Start: May 28, 2025 Dr. Pee Sargent DO Emergency Departm ent Physician Active Start: May 28, 2025 Dr. Edel Bullock DO Admitting physician Active Start: May 28, 2025 Dr. Edel Bullock DO Attending physician Active Start: May 28, 2025 Dr. Edel Bullock DO Nurse Practitioner Active Start: May 28, 2025 Dr. Levon Schmid MD Nurse Practitioner Active Start: May 28, 2025 Team Status: Active Member Role/Relationship Status Dates Dr. Steffen Eisenberg MD Primary care physician Active Start: May 28, 2025 Dr. Pee Sargent DO Emergency Departm ent Physician Active Start: May 28, 2025 Dr. Edel Bullock DO Admitting physician Active Start: May 28, 2025 Dr. Edel Bullock DO Nurse Practitioner Active Start: May 28, 2025 Dr. Levon Schmid MD Nurse Practitioner Active Start: May 28, 2025 Dr. Garrett Hernandez MD Attending physician Active Start: May 28, 2025 Team Status: Inactive Member Role/Relationship Status Dates Dr. Steffen Eisenberg MD Primary care physician Active Start: June 01, 2025 End: June 01, 2025 Dr. Edel Bullock DO Attending physician Active Start: May End: June 01, 2025 Dr. Edel Bullock DO Referring Provider Active Start: May End: June 01, 2025 Team Status: Active Member Role/Relationship Status Dates Dr. Steffen Eisenberg MD Primary care physician Active Start: June 03, 2025 Dr. Garrett Hernandez MD Attending physician Active Start: June 03, 2025 Team Status: Inactive Member Role/Relationship Status Dates Dr. Steffen Eisenberg MD Primary care physician Active Start: June 05, 2025 End: June 05, 2025 Dr. Misty Conteh DO Attending physician Active Start: June 05, 2025 End: June 05, 2025 Dr. [facility] Active Start: June 05, 2025 End: June 05, 2025 Team Status: Active Member Role/Relationship Status Dates Dr. Steffen Eisenberg MD Primary care physician Active Start: June 09, 2025 Keysha Carr SURVEYOR ROD HELPER, SURVEYOR ROD HELPER-C Attending physician Active Start: June 09, 2025 Keysha Carr SURVEYOR ROD HELPER, SURVEYOR ROD HELPER-C Nurse Practitioner Active Start: June 09, 2025 Dr. Garrett Hernandez MD Referring Provider Active Start: June 09, 2025 Team Status: Inactive Member Role/Relationship Status Dates Dr. Steffen Eisenberg MD Primary care physician Active Start: June 10, 2025 End: June 10, 2025 Dr. Steffen Eisenberg MD Referring Provider Active Start: June 10, 2025 End: June 10, 2025 Dr. Apple Lao MD Attending physician Active Start: June 10, 2025 End: June 10, 2025 Team Status: Inactive Member Role/Relationship Status Dates Dr. Steffen Eisenberg MD Primary care physician Active Start: June 23, 2025 End: June 23, 2025 Dr. Steffen Eisenberg MD Referring Provider Active Start: June 23, 2025 End: June 23, 2025 Dr. Edel Bullock DO Attending physician Active Start: May End: June 23, 2025 Team Status: Inactive Member Role/Relationship Status Dates Dr. Steffen Eisenberg MD Primary care physician Active Start: June 25, 2025 End: June 29, 2025 Dr. Garrett Hernandez MD Referring Provider Active Start: June 25, 2025 End: June 29, 2025 Dr. Rekha Pruett DO Attending physician Active S tart: June 25, 2025 End: June 29, 2025 Team Status: Inactive Member Role/Relationship Status Dates Dr. Steffen Eisenberg MD Primary care physician Active Start: July 09, 2025 End: July 09, 2025 Dr. Garrett Hernandez MD Referring Provider Active Start: July 09, 2025 End: July 09, 2025 Dr. Rekha Pruett DO Attending physician Active S tart: July 09, 2025 End: July 09, 2025 Goals (unrecognized section and content) Goals [...] or prosecute any alcohol or drug abuse patient.[facility] the event this information is protected by the Federal Confidentiality of Alcohol and Drug Abuse Patient Records regulations: The Federal rules restrict any use of the information to criminally investigate or prosecute any alcohol or drug abuse patient.[facility] FOR RECORDS PERTAINING TO PATIENTS WHO [...] BE BASED ON THE PRIMARY CLINICAL RECORDS. [employer] [facility]. provides no warranty or guarantee of the accuracy or completeness of information in this document.
== END | disposition home or self-care (01) ==
LOC: US 07:19
PROVIDERS: PCP Internal Medicine; Referring Provider Internal Medicine; Visit Provider Internal Medicine
DX: R19.00 Intra-abdominal and pelvic swelling, mass and lump, unspecified site (principal)
CPT/HCPCS: 76705